=== PATIENT | male | born 1985 | race Caucasian/White ===

== ENCOUNTER 2023-04-24 14:30 | Emergency (ER) | payer MEDICAID, SELFPAY ==
[2023-04-24] VITALS (12 sets, daily range): BP systolic 110–149; BP diastolic 81–92; PULSE 85; RESP 20–21; TEMP 37.2; O2SAT 93–100; BMI 52.5
--- NOTE | 2023-04-24 14:44 | XR_ITS ---
The [address] [address] Patient Name: ELIAS WALKER MRN: [id number] date: 1985 Sex: M Assigned Patient Location: ER Current Patient Location: ER Accession/Order Number: [id number] Exam Date: 04/24/2023 15:05 Report Date: 04/24/2023 15:58 At the request of: ERIBERTO BAIN Procedure: XR chest 1V EXAM: XR chest 1V HISTORY: Cough COMPARISON: Chest study dated 05/23/2022 TECHNIQUE: AP view of the chest was obtained with portable technique at 3:00 PM. FINDINGS: Heart and mediastinal contours are unremarkable in appearance. Mild ill-defined increased density overlying the left lung field may be due to soft tissue artifact. Mild atelectatic and/or infiltrative changes not entirely excluded. Opacities in the midline may be related to post sternotomy changes, correlate with history. Postoperative clips noted on the left. No obvious pneumothorax. Bony structures appear grossly intact. XR/XR chest 1V IMPRESSION: Mild ill-defined increased density on the left which may be due to overlying soft tissue artifact. Mild atelectatic and/or infiltrative changes not entirely excluded. Follow-up as needed. Electronically authenticated by: JUSTO DERAS Date: 04/24/2023 15:58
--- NOTE | 2023-04-24 14:44 | ECG_ITS ---
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
[2023-04-24 14:50] LABS: Glucometer 389 mg/dL (74-106)
--- NOTE | 2023-04-24 15:01 | CT_ITS ---
The [address] [address] Patient Name: ELIAS WALKER MRN: [id number] date: 1985 Sex: M Assigned Patient Location: ER Current Patient Location: ER Accession/Order Number: [id number] Exam Date: 04/24/2023 15:15 Report Date: 04/24/2023 15:38 At the request of: ERIBERTO BAIN Procedure: CT head/brain wo con CT head/brain wo con, 04/24/2023 3:15 PM EST INDICATION: Dizziness COMPARISON: Noncontrast CT of the head 07/04/2011. Dictation Noncontrast CT of the head 07/05/2011; the images for this study are not available for direct comparison at the time of this dictation. TECHNIQUE: Axial CT images of the brain from skull base to vertex, including portions of the face and sinuses, were obtained without contrast. Multiplanar reformatted images were generated and reviewed as needed. FINDINGS: No intracranial mass, hydrocephalus, midline shift or acute hemorrhage. No extra-axial collection. Mcdonald-white matter differentiation is preserved. Mucosal thickening within the ethmoid air cells bilaterally. The remaining paranasal sinuses and mastoid air cells are clear. Orbits are within normal limits. No acute skull fracture. CT/CT head/brain wo con IMPRESSION: 1. No acute intracranial abnormality. 2. Mild bilateral ethmoid sinusitis. Electronically authenticated by: KOJO BERNARD Date: 04/24/2023 15:38
--- NOTE | 2023-04-24 15:02 | ED.GENADUL1 ---
HPI - General Adult General Chief complaint: Dizziness Stated complaint: DIZZINESS/BLOOD SUGAR LOW Time Seen by Provider: 04/24/23 14:39 Source: patient Mode of arrival: walk-in Limitations: no limitations Related Data Home Medications Medication Instructions Recorded Confirmed amiodarone 200 mg tablet 200 mg PO QDAY 04/10/23 04/24/23 aripiprazole 5 mg tablet 5 mg PO DAILY 04/10/23 04/24/23 aspirin 81 mg tablet,delayed 81 mg PO DAILY 04/10/23 04/24/23 release (Adult Low Dose Aspirin) atorvastatin 80 mg PO DAILY 04/10/23 04/24/23 carvedilol 25 mg tablet 25 mg PO BID 04/10/23 04/24/23 cetirizine 10 mg capsule (All Day 10 mg PO DAILY PRN aller 04/10/23 04/24/23 Allergy (cetirizine)) cinacalcet 30 mg tablet 30 mg PO DAILY 04/10/23 04/24/23 clopidogrel 75 mg tablet 75 mg PO DAILY 04/10/23 04/24/23 dapagliflozin propanediol 10 mg 10 mg PO DAILY 04/10/23 04/24/23 tablet dulaglutide 1.5 mg/0.5 mL 1.5 mg subcut QWEEK 04/10/23 04/24/23 subcutaneous pen injector fluoxetine 20 mg capsule 20 mg PO DAILY 04/10/23 04/24/23 fluticasone propionate 50 2 spray intranasal DAILY PRN 04/10/23 04/24/23 mcg/actuation nasal congestion spray,suspension (Allergy Relief (fluticasone)) metoprolol succinate 25 mg 25 mg PO DAILY 04/10/23 04/24/23 tablet,extended release 24 hr lisinopril 5 mg tablet 5 mg PO DAILY 04/24/23 04/24/23 Previous Rx's Medication Instructions Recorded cefdinir 300 mg capsule 300 mg PO BID 10 days #20 caps 04/24/23 meclizine 25 mg chewable tablet 25 mg PO QID PRN dizziness #12 tabs 04/24/23 (Antivert) ondansetron 4 mg disintegrating 4 mg PO Q6H PRN nausea and 04/24/23 tablet vomiting #12 tabs Allergies Allergy/AdvReac Type Severity Reaction Status Date / Time No Known Drug Allergies Allergy Verified 04/24/23 14:36 PFSH PFSH Medical History (Updated 04/24/23 @ 16:32 by WILL Paul) COVID-19 ?U07.1 - COVID-19 (ICD-10) Seasonal allergic rhinitis ?J30.2 - Other seasonal allergic rhinitis (ICD-10) Hyperlipidemia ?E78.5 - Hyperlipidemia, unspecified (ICD-10) Hypertension ?I10 - Essential (primary) hypertension (ICD-10) Myocardial infarction ?I21.9 - Acute myocardial infarction, unspecified (ICD-10) CVA (cerebral vascular accident) ?I63.9 - Cerebral infarction, unspecified (ICD-10) Tongue lesion ?K14.8 - Other diseases of tongue (ICD-10) Surgical History (Updated 04/10/23 @ 08:21 by Clint Vargas) Status post biopsy of kidney ?Z98.890 - Other specified postprocedural states (ICD-10) H/O partial thyroidectomy ?E89.0 - Postprocedural hypothyroidism (ICD-10) H/O parathyroidectomy ?Z98.890 - Other specified postprocedural states (ICD-10) ?Z90.89 - Acquired absence of other organs (ICD-10) History of coronary artery bypass graft ?Z95.1 - Presence of aortocoronary bypass graft (ICD-10) Family History (Updated 04/10/23 @ 08:30 by Clint Vargas) Mother Family history of diabetes mellitus Social History Smoking status: Light tobacco smoker Exam Constitutional Vital Signs, click to edit/add: Last Vital Signs Temp 98.9 F 04/24/23 14:36 Pulse 85 04/24/23 14:36 Resp 04/24/23 14:36 BP 149/82 H 04/24/23 14:36 Pulse Ox 93 L 04/24/23 14:36 O2 Del Method Room Air 04/24/23 14:36 Course Vital Signs Vital signs: Vital Signs Temperature 98.9 F 04/24/23 14:36 Pulse Rate 85 04/24/23 14:36 Respiratory Rate 04/24/23 14:36 Blood Pressure 149/82 H 04/24/23 14:36 Pulse Oximetry 93 L 04/24/23 14:36 Oxygen Delivery Method Room Air 04/24/23 14:36 Temperature 98.9 F 04/24/23 14:36 Pulse Rate 85 04/24/23 14:36 Respiratory Rate 20 04/24/23 14:36 Blood Pressure 149/82 H 04/24/23 14:36 Pulse Oximetry 93 L 04/24/23 14:36 Oxygen Delivery Method Room Air 04/24/23 14:36 Medical Decision Making MDM Narrative Medical decision making narrative: Patient noted to have hyperglycemia with no evidence of DKA, no critical blood sugars in the emergency department. He was treated with IV fluids. He has no complaints of pain or nausea. No chest pain, shortness of breath or abdominal pain. Lab studies show normal white blood cell count, normal electrolytes, stable renal insufficiency. I reviewed old records from the patient, in May of last year, he was diagnosed with non-STEMI and new onset diabetes and was transferred to [facility] where he underwent CABG. His lipase is mildly elevated and TSH is elevated as well, I suspect that the elevated lipase is due to his Trulicity which is a known side effect. He has no complaints of abdominal pain or vomiting. No abnormal bilirubin or LFTs. CT of the brain shows ethmoid sinusitis and chest x-ray shows hazy atelectasis versus a possible infiltrate although the patient has no cough. He will be treated with antibiotics for the sinusitis which will cover this potential infiltrate. He has no evidence of sepsis, he is in no distress on reevaluation by attending physician prior to discharge. He will be sent home with an antibiotic, nausea medication. Antivert given for dizziness. Return to the ER if symptoms change or worsen. Medical Records Medical records reviewed: Yes I reviewed the patient's medical records Lab Data Lab results reviewed: Yes I reviewed the patient's lab results Labs: Lab Results 04/24/23 04/24/23 04/24/23 Range/Units 14:48 14:54 14:56 WBC 7.3 (4.0-11.0) 10^3/uL RBC 5.45 (4.70-6.10) 10^6/uL Hgb 15.5 (14.0-18.0) g/dL Hct 48.5 (42.0-54.0) % MCV 89.0 (80.0-94.0) fL MCH 28.4 (25.9-34.0) pg MCHC 32.0 (29.9-35.2) g/dL RDW 13.9 (11.0-15.0) % Plt Count 241 (150-450) 10^3/uL MPV 10.1 (9.5-13.5) fL Neut % (Auto) 58.4 (43.0-75.0) % Lymph % (Auto) 28.3 (20.5-60.0) % [place] % (Auto) 10.5 (1.7-12.0) % Eos % (Auto) 1.9 (0.9-7.0) % Baso % (Auto) 0.6 (0.2-2.0) % Neut # (Auto) 4.3 (1.4-6.5) 10^3/uL Lymph # (Auto) 2.1 (1.2-3.8) 10^3/uL [place] # (Auto) 0.8 (0.3-0.8) 10^3/uL Eos # (Auto) 0.1 (0.0-0.7) 10^3/uL Baso # (Auto) 0.0 (0.0-0.1) 10^3/uL Abs Immat Gran (auto) 0.02 (0.00-0.03) 10^3/uL Imm/Tot Granulo (auto) 0.3 (0.0-0.5) % PT 10.4 (9.0-11.6) sec INR 0.98 VBG pH 7.332 (7.330-7.430) VBG pCO2 44.6 (40.0-52.0) mmHg Sodium 137 (136-145) mmol/L Potassium 5.1 (3.5-5.1) mmol/L Chloride 101 (98-107) mmol/L Carbon Dioxide 24.3 (21.0-32.0) mmol/L Anion Gap 16.8 BUN 31.0 H (7.0-18.0) mg/dL Creatinine 2.59 H (0.70-1.30) mg/dL Est GFR ( Amer) 34 L (>=60) Est GFR (Non-Af Amer) 28 L (>=60) BUN/Creatinine Ratio 12.0 Glucose 421 H (74-106) mg/dL Lactate 1.7 (0.4-2.0) mmol/L Calcium 7.1 L (8.5-10.1) mg/dL Total Bilirubin 0.7 (0.2-1.0) mg/dL AST 28 (15-37) U/L ALT 60 (16-63) U/L Alkaline Phosphatase 141 H (46-116) U/L Troponin I High Sens 11.4 (4.0-76.1) pg/mL Total Protein 9.0 H (6.4-8.2) g/dL Albumin 2.9 L (3.4-5.0) g/dL Globulin 6.1 g/dL Albumin/Globulin Ratio 0.5 Lipase 247.0 H (16.0-77.0) U/L TSH 6.966 H (0.358-3.740) uIU/mL Acetone, Qual Negative (NEGATIVE) Influenza Type A Ag Negative Influenza Type B Ag Negative SARS-CoV-2 Ag (CV2AG) Negative (NEGATIVE) POC Glucose 389 H (74-106) mg/dL Imaging Data CT scan - head: Attestation: I have reviewed the pertinent imaging results. Radiologist's impression: ITS Impressions Chest X-Ray 04/24/23 14:44 IMPRESSION: Mild ill-defined increased density on the left which may be due to overlying soft tissue artifact. Mild atelectatic and/or infiltrative changes not entirely excluded. Follow-up as needed. Electronically authenticated by: JUSTO DERAS Date: 04/24/2023 15:[address] 04/24/23 15:01 IMPRESSION: 1. No acute intracranial abnormality. 2. Mild bilateral ethmoid sinusitis. Electronically authenticated by: KOJO BERNARD Date: 04/24/2023 15:38 ECG Data Attestation: I personally reviewed and interpreted this ECG as follows: (Normal sinus rhythm at a rate of 79, no acute ST elevation, no ectopy. EKG reviewed by attending physician) Discharge Plan Discharge Chief Complaint: Dizziness Clinical Impression: Dizziness, Acute hyperglycemia, Sinusitis Patient Disposition: Home, Self-Care Time of Disposition Decision: 16:32 Condition: Good Prescriptions / Home Meds: New ondansetron 4 mg tablet,disintegrating 4 mg PO Q6H PRN (Reason: nausea and vomiting) Qty: 12 0RF cefdinir 300 mg capsule 300 mg PO BID 10 Days Qty: 20 0RF meclizine [Antivert] 25 mg tablet,chewable 25 mg PO QID PRN (Reason: dizziness) Qty: 12 0RF No Action lisinopril 5 mg tablet 5 mg PO DAILY amiodarone 200 mg tablet 200 mg PO QDAY aripiprazole 5 mg tablet 5 mg PO DAILY aspirin [Adult Low Dose Aspirin] 81 mg tablet,delayed release (DR/EC) 81 mg PO DAILY atorvastatin 80 mg PO DAILY carvedilol 25 mg tablet 25 mg PO BID Rx Instructions: must administer with a meal/food All Day Allergy (cetirizine) 10 mg capsule 10 mg PO DAILY PRN (Reason: aller) cinacalcet 30 mg tablet 30 mg PO DAILY clopidogrel 75 mg tablet 75 mg PO DAILY dapagliflozin propanediol 10 mg tablet 10 mg PO DAILY dulaglutide 1.5 mg/0.5 mL pen injector 1.5 mg subcut QWEEK fluoxetine 20 mg capsule 20 mg PO DAILY fluticasone propionate [Allergy Relief (fluticasone)] 50 mcg/actuation spray,suspension 2 spray intranasal DAILY PRN (Reason: congestion) Rx Instructions: administer into each nostril metoprolol succinate 25 mg tablet extended release 24 hr 25 mg PO DAILY Instructions: Sinusitis (ED), Dizziness (ED), Diabetic Hyperglycemia (ED) Stand Alone Forms: Portal Instructions Referrals: Physician,Non-Staff, MD [Primary Care Provider] - 1 week
[2023-04-24 15:04] LABS: Basophils Percent Auto 0.6 % (0.2-2.0); Eosinophils Absolute Auto 0.1 10^3/uL (0.0-0.7); Eosinophils Percent Auto 1.9 % (0.9-7.0); Hematocrit 48.5 % (42.0-54.0); Hemoglobin 15.5 g/dL (14.0-18.0); Immature Granulocytes Abs Auto 0.02 10^3/uL (0.00-0.03); Immature Granulocytes Pct Auto 0.3 % (0.0-0.5); Lymphocytes Absolute Auto 2.1 10^3/uL (1.2-3.8); Lymphocytes Percent Auto 28.3 % (20.5-60.0); Mean Corpuscular Hemoglobin 28.4 pg (25.9-34.0); Mean Platelet Volume 10.1 fL (9.5-13.5); Monocytes Absolute Auto 0.8 10^3/uL (0.3-0.8); Monocytes Percent Auto 10.5 % (1.7-12.0); Neutrophils Absolute Auto 4.3 10^3/uL (1.4-6.5); Neutrophils Percent Auto 58.4 % (43.0-75.0); Platelet Count 241 10^3/uL (150-450); Red Blood Count 5.45 10^6/uL (4.70-6.10); Red Cell Distribution Width 13.9 % (11.0-15.0); White Blood Count 7.3 10^3/uL (4.0-11.0)
[2023-04-24 15:09] LABS: PCO2 VBG 44.6 mmHg (40.0-52.0); pH VBG 7.332 (7.330-7.430)
[2023-04-24 15:19] LABS: Alanine Aminotransferase 60 U/L (16-63); Albumin Globulin Ratio 0.5; Albumin Level 2.9 g/dL (3.4-5.0); Alkaline Phosphatase 141 U/L (46-116); Anion Gap 16.8; Aspartate Amino Transferase 28 U/L (15-37); Bilirubin Total 0.7 mg/dL (0.2-1.0); Calcium 7.1 mg/dL (8.5-10.1); Carbon Dioxide 24.3 mmol/L (21.0-32.0); Chloride 101 mmol/L (98-107); Estimated GFR (African America 34 (>=60); Estimated GFR (Non-African Ame 28 (>=60); Globulin 6.1 g/dL; Glucose 421 mg/dL (74-106); Potassium 5.1 mmol/L (3.5-5.1); Sodium 137 mmol/L (136-145)
[2023-04-24 15:21] LABS: INR 0.98; Lactate/Lactic Acid 1.7 mmol/L (0.4-2.0); Prothrombin Time 10.4 sec (9.0-11.6)
[2023-04-24] MEDS: 0.9 % SODIUM CHLORIDE 1,000 ML 999 ML IV (15:23)
[2023-04-24 15:27] LABS: Thyroid Stimulating Hormone 6.966 uIU/mL (0.358-3.740); Troponin I High Sensitivity 11.4 pg/mL (4.0-76.1)
[2023-04-24 15:31] LABS: Influenza Virus A Antigen Negative; Influenza Virus B Antigen Negative; Internal Control Within Normal Limits; SARS-CoV-2 Ag NEGATIVE (NEGATIVE)
[2023-04-24 16:08] LABS: Acetone NEGATIVE (NEGATIVE)
[2023-04-24 16:25] LABS: Free T4 1.07 ng/dL (0.76-1.46)
[2023-04-24 16:32] LABS: Free T3 2.22 pg/mL (2.18-3.98)
== END 2023-04-24 16:58 | disposition home or self-care (01) ==
PROVIDERS: Physician Assistant; Emergency Provider Emergency Medicine
DX: R42 Dizziness and giddiness (principal); E11.65 Type 2 diabetes mellitus with hyperglycemia; J32.2 Chronic ethmoidal sinusitis; Z79.82 Long term (current) use of aspirin; Z79.899 Other long term (current) drug therapy; Z79.85 Long-term (current) use of injectable non-insulin antidiabetic drugs; Z86.16 Personal history of COVID-19; E78.5 Hyperlipidemia, unspecified; I10 Essential (primary) hypertension; I25.2 Old myocardial infarction; Z86.73 Personal history of transient ischemic attack (TIA), and cerebral infarction without residual deficits; Z95.1 Presence of aortocoronary bypass graft; F17.200 Nicotine dependence, unspecified, uncomplicated
CPT/HCPCS: 36415; 70450; 71045; 80053; 82009; 82800; 83605; 83690; 84439; 84443; 84481; 84484; 85025; 85610; 87804; 87811; 93005; 99285

== ENCOUNTER 2024-12-07 15:07 | Emergency (ER) | payer MEDICAID, SELFPAY ==
[2024-12-07 15:09] VITALS: BP 133/96; PULSE 87; TEMP 36.7; O2SAT 97; BMI 65.2
--- NOTE | 2024-12-07 15:18 | PC.NURSE ---
multiple insect bites noted on bilateral arms and back of bilateral legs
--- OUTSIDE RECORDS SUMMARY | 2024-12-07 15:21 | XMS_ITS | CCD ---
Author Organization [facility] Care Team Providers Care Labor Supervisor Name Role Phone NO FAMILY, PHYSICIAN Primary Care Provider VANESA Hoover Emergency Provider Unavailable Primary Care Provider Unavailabl e Unavailable Primary Care Provider Unavailabl e Basilio Sam Attending Unavailable Basilio Sam Admitting Unavailable NO FAMILY, PHYSICIAN Primary Care Unavailable FRANKLIN PARSONS Admitting Unavailable DR ZOE MONTERO Consulting Unavailabl e REQUEST, DR BLANTON LISTED Primary Care UnavailFRANKLIN Yun Attending Unavailable FRANKLIN PARSONS Consulting Unavailable LION ZHU Consulting Unavailable Thiago DIRECTOR SOCIAL SERVICE - RECREATION SUPERVISORJose Primary Care Prov ider Khanna DIRECTOR SOCIAL SERVICE - RECREATION SUPERVISOR, Jose Alonso Primary Care Prov ider ARIEL PURDY Attending Unavailable MAGUI DAVIS Consulting Unavailable JOSE KHANNA Primary Care Unavailable FRANKLIN PARSONS Referring Unavailable ARIEL PURDY Admitting Unavailable SHARDA SOLITARIO Consulting Unavailable ARIEL PURDY Consulting Unavailable MAGUI DAVIS Referring Unavailable JOSE KHANNA Primary Care Unavailable JOSE KHANNA Primary Care Unavailable TALIA, BALHINDER S Referring Unavailable KATE MATT Attending Unavailable ELIANA MERINO Referring Unavailable TALIA, BALHINDER S Referring Unavailable JOSE KHANNA Primary Care Unavailable TALIA, BALHINDER S Referring Unavailable JOSE KHANNA Primary Care Unavailable JOSE KHANNA Primary Care Unavailable TALIA, BALHINDER S Referring Unavailable JOSE KHANNA Primary Care Unavailable TALIA, BALHINDER S Referring Unavailable TALIA, BALHINDER S Referring Unavailable JOSE KHANNA Primary Care Unavailable Khanna DIRECTOR SOCIAL SERVICE-RECREATION SUPERVISOR, Jose Alonso Primary Care Provid er ALINA ESQUIVELMONTEZ García Referring Unavailable KHANNA, JOSE J Primary Care Unavailable KHANNA, JOSE J Primary Care Unavailable JENNYFER ROSLYN Attending Unavailable KHANNA, JOSE J Referring Unavailable KHANNA, JOSE J Primary Care Unavailable Khanna DIRECTOR SOCIAL SERVICE-RECREATION SUPERVISOR, Jose J Primary Care Provid er KHANNA, JOSE J Referring Unavailable KHANNA, JOSE J Primary Care Unavailable KHANNA, JOSE J Attending Unavailable KHANNA, JOSE J Referring Unavailable KHANNA, JOSE J Primary Care Unavailable KHANNA, JOSE J Attending Unavailable KHANNA, JOSE J Referring Unavailable KHANNA, JOSE J Primary Care Unavailable KHANNA, JOSE J Attending Unavailable KHANNA, JOSE J Referring Unavailable KHANNA, JOSE J Primary Care Unavailable KHANNA, JOSE J Attending Unavailable KHANNA, JOSE J Referring Unavailable KHANNA, JOSE J Primary Care Unavailable KHANNA, JOSE J Attending Unavailable KHANNA, JOSE J Referring Unavailable KHANNA, JOSE J Primary Care Unavailable KHANNA, JOSE J Attending Unavailable KHANNA, JOSE J Referring Unavailable KHANNA, JOSE J Primary Care Unavailable KHANNA, JOSE J Attending Unavailable KHANNA, JOSE J Referring Unavailable KHANNA, JOSE J Primary Care Unavailable KHANNA, JOSE J Attending Unavailable KHANNA, JOSE J Referring Unavailable KHANNA, JOSE J Primary Care Unavailable Unavailable Primary Care Provider Unavailabl e Unavailable Primary Care Provider Unavailabl e JACOB UGARTE Attending Unavailable JACOB UGARTE Attending Unavailable KHANNA, JOSE Gavin Referring Unavailable KHANNA, JOSE Gavin Primary Care Unavailable JACOB UGARTE Referring Unavailable KHANNA, JOSE Gavin Primary Care Unavailable JACOB UGARTE Referring Unavailable Allergies Allergy Classification Reported Allergen(s) Allergy Type Date of Onset Reaction(s) Facility (3 sources) [facility]; Translations: [melon] Allergy to substance 2 Swelling of Lip/Tongue/Thro at [facility] (20 sources) tomato allergenic extract; Translations: [tomato] Drug Allergy 2 Swelling of Lip/Tongue/Thro at [facility] (20 sources) FOOD Propensity to adverse reactions to drug 2 [facility] (20 sources) buPROPion; Translations: [BUPROPION HCL] Drug Allergy 2 [employer] Work Phone: (20 sources) Food Allergy Formula; Translations: [FOOD ALLERGY FORMULA] Propensity to adverse reactions to drug 2 [employer] Medications Current Medications Medication Drug Class(es) Dates Sig (Normalized) Sig (Original) acetaminophen 325 mg / oxyCODONE hydrochloride 5 mg oral tablet (2 sources) Opioid Agonist Start: 06-06-2022 End: 06-11-2022 Start: 02-02-2016 End: 09-12-2021 500 ml albumin human, fdc 50 mg/ml injection (2 sources) Human Serum Albumin Start: 06-02-2022 25 g, Intr aVENous, at 500 mL/hr, Administer over 60 Minutes, PRN, Other, PAD below goal and Low CI and/or Low BP and /or Low urine output per hemodynamic goals, Starting on Kathy 06/02/22 at 1824 Up to a max of 2000 mL. Notify surgeon for further orders if max volume infused. Post-op Start: 06-02-2022 25 g, IntraVEN ous, PRN, Starting on Kathy 06/02/22 at 1824, Until Discontinued, Administer over 60 Minutes, at 100 mL/hr, Other, Low CI and/or Low BP and /or Low urine output per hemodynamic goals. In the event the 5% 25 gram 500 mL bottles of albumin are unavailable - please dilute this bottle in 400 mL's of normal saline. Do not give greater than 4 bottles total after surgery. Contact CTS team if patient does not meet hemodynamic goals. Post-op ARIPiprazole 5 mg oral tablet (15 sources) Atypical Antipsychotic Start: 09-12-2022 End: 07-18-2023 take 1 tablet by mouth in the morning ARIPiprazole (ABILIFY) 5 mg tablet Indications: Mixed anxiety and depressive disorder Take 1 tablet (5 mg total) by mouth in the morning. 90 tablet 1 03/08/2023 Active aspirin 81 mg delayed release oral tablet (20 sources) Platelet Aggregation Inhibitor, Nonsteroidal Anti-inflammatory Drug Start: 06-02-2022 take 1 tablet by mouth in the morning aspirin 81 mg Take 1 tablet (81 mg total) by mouth in the morning. 06/07/2022 Active Start: 05-24-2022 End: 06-02-2022 take 1 dose by mouth once 81 mg, Oral, ONCE, 1 dose, O n Kathy 06/02/22 at 2115 atorvastatin 80 mg oral tablet (20 sources) HMG-CoA Reductase Inhibitor Start: 01-01-2024 End: 10-01-2024 take 1 tablet by mouth once daily atorvastatin (LIPITOR) 80 mg tablet Indications: Mixed hyperlipidemia Take 1 tablet (80 mg total) by mouth nightly. 90 tablet 10/01/2024 Active Start: 12-19-2022 End: 12-29-2023 take 1 tablet by mouth once daily atorvastatin (LIPITOR) 80 mg tablet Indications: Mixed hyperlipidemia Take 1 tablet (80 mg total) by mouth nightly. 90 tablet 2 11/23/2023 Active Start: 06-30-2022 take 1 tablet by caitlyn th once daily atorvastatin (LIPITOR) 20 MG tablet Take 1 tablet by mouth nightly 30 tablet 3 06/30/2022 Active Start: 06-06-2022 Start: 06-03-2022 take 20 mg by mouth once daily 20 mg, Oral, NIGHTLY, First dose on Mon06/03/22 at 2100, Until Discontinued Please hold for elevated liver function enzymes Post-op Start: 05-23-2022 End: 06-02-2022 take 80 mg by mouth once daily 80 mg, Oral, NIGHTLY, F irst dose on Mon05/23/22 at 2100, Until Discontinued blood-glucose meter (glucose monitoring kit) kit (20 sources) Start: 07-12-2022 blood-glucose meter (glucose monitoring kit) kit Indications: Uncontrolled type 2 diabetes mellitus with hyperglycemia (CMS-HCC) Use as instructed 1 each 07/12/2022 Active Start: 07-12-2022 blood-glucose meter (glucose monitoring kit) kit Indications: Uncontrolled type 2 diabetes mellitus with hyperglycemia (CMS-HCC) Use as instructed 1 each 0 07/12/2022 Active blood-glucose meter,continuo us (DEXCOM G7 RETAIL CONSULTANT) misc (20 sources) Start: 05-10-2023 blood-glucose meter,continuous (DEXCOM G7 RETAIL CONSULTANT) misc Indications: Uncontrolled type 2 diabetes mellitus with hyperglycemia (CMS-HCC) 1 Device by miscellaneous route in the evening. 05/10/2023 Active Start: 05-10-2023 blood-glucose meter,continuous (DEXCOM G7 RETAIL CONSULTANT) [facility] [place]ications: Uncontrolled type 2 diabetes mellitus with hyperglycemia (CMS-HCC) 1 Device by miscellaneous route in the evening. 0 05/10/2023 Active blood-glucose sensor (DEXCOM G7 SENSOR) device (20 sources) Start: 05-10-2023 blood-glucose sensor (DEXCOM G7 SENSOR) device Indications: Uncontrolled type 2 diabetes mellitus with hyperglycemia (CMS-HCC) 1 each by miscellaneous route every 10 days. 05/10/2023 Active Start: 05-10-2023 blood-glucose sensor (DEXCOM G7 SENSOR) device Indications: Uncontrolled type 2 diabetes mellitus with hyperglycemia ([facility]) 1 each by miscellaneous route every 10 days. 0 05/10/2023 Active calcium carbonate 500 mg chewable tablet (5 sources) Start: 04-11-2023 End: 05-11-2023 calcium carbonate (ANTACID, CALCIUM CARBONATE,) 200 mg elemental (500 mg) chewable tablet Chew 5 tablets (1,000 mg total) and swallow. 0 04/11/2023 05/11/2023 Active Start: 05-28-2022 End: 06-02-2022 take 500 mg by mouth three times daily as needed for gastroesophageal reflux disease 500 mg, Oral, 3 TIMES DAILY PRN, Starting on 05/28/22 at 1517, Until Kathy 06/02/22 at 1824, Heartburn calcium carbonate 1250 mg / cholecalciferol 200 unt oral tablet (12 sources) Vitamin D Start: 02-23-2023 take 2 tablets by mouth in the morning, then take 2 tablets by mouth once in the evening, then take 2 tablets by mouth at bedtime Calcium Carb-Cholecalciferol (Oyster Shell Calcium w/D) 500-5 MG-MCG tablet Take 2 tablets by mouth in the morning and 2 tablets in the evening and 2 tablets before bedtime. 02/23/2023 Active Start: 02-23-2023 End: 11-23-2023 take 2 tablets by mouth once calcium carbonate-vitamin D3 (OSCAL 500 + D) 500 mg(1,250mg) -200 units per tablet Take 2 tablets by mouth. 02/23/2023 11/23/2023 Discontinued (Therapy completed) Start: 09-04-2021 End: 09-05-2021 take 1 tablet by mouth once daily 1 tablet, Oral, DAILY, First dose on 09/04/21 at 1030, Until Discontinued Per og . cariprazine 1.5 mg oral capsule (20 sources) Atypical Antipsychotic Start: 05-10-2023 End: 05-29-2024 take 1 capsule by mouth in the morning VRAYLAR 1.5 mg capsule Indications: Moderate episode of recurrent major depressive disorder (CMS-HCC) TAKE 1 CAPSULE BY MOUTH IN THE MORNING 30 capsule 5 05/29/2024 Active Start: 12-16-2022 End: 03-08-2023 take 1 capsule by mouth in the morning cariprazine (VRAYLAR) 1.5 mg capsule Indications: Anxiety and depression Take 1 capsule (1.5 mg total) by mouth in the morning. 30 capsule 3 12/16/2022 03/08/2023 Discontinued (Therapy completed) carvedilol 25 mg oral tablet (20 sources) alpha-Adrenergic Ubaldo, beta-Adrenergic Ubaldo Start: 09-28-2021 End: 06-06-2022 take 1 tablet by mouth in the morning carvedilol (Coreg) 25 MG tablet Take 25 mg by mouth in the morning and 25 mg in the evening. Take with meals. 05/10/2022 Active Start: 09-09-2021 End: 09-12-2021 take 1 tablet by mouth twice daily carvedilol (COREG) 12.5 MG tablet Take 1 tablet by mouth 2 times daily 60 tablet 3 09/12/2021 Active Start: 09-08-2021 End: 09-09-2021 take 25 mg by mouth twice daily at mealtime 25 mg, Oral, 2 TIMES DAILY, First dose (after last modification) on Mon09/08/21 at 1000, Until Discontinued Administer with food to minimize the risk of orthostatic hypotension Start: 09-07-2021 End: 09-08-2021 take 12.5 mg by mouth twice daily at mealtime 12.5 mg, Oral, 2 TIMES DAILY, First dose (after last modification) on Mon09/07/21 at 2100, Until Discontinued Administer with food to minimize the risk of orthostatic hypotension Start: 08-30-2021 End: 09-07-2021 take 6.25 mg by mouth twice daily at mealtime 6.25 mg, Oral, 2 TIMES DAILY, First dose (after last modification) on Mon09/07/21 at 0715, Until Discontinued Administer with food to minimize the risk of orthostatic hypotension cefTRIAXone (ROCEPHIN) infusion (15 sources) Start: 09-13-2021 End: 09-29-2021 take 2000 mg intravenously every twenty-four hours cefTRIAXone (ROCEPHIN) infusion Infuse 2,000 mg intravenously every 24 hours for 16 days Compound per protocol 32 g 0 09/13/2021 09/29/2021 Active cephalexin 500 mg oral capsule (2 sources) Cephalosporin Antibacterial Start: 09-20-2023 End: 09-30-2023 take 1 capsule by mouth in the morning, then take 1 capsule by mouth at bedtime CEPHalexin (KEFLEX) 500 mg capsule Indications: Folliculitis Take 1 capsule (500 mg total) by mouth in the morning and 1 capsule (500 mg total) before bedtime. Do all this for 10 days. 20 capsule 09/20/2023 09/30/2023 Active Start: 02-02-2016 End: 09-12-2021 cetirizine hydrochloride 10 mg oral tablet (20 sources) Histamine-1 Receptor Antagonist Start: 07-12-2022 End: 06-17-2024 take 1 tablet by mouth in the morning cetirizine (ZyrTEC) 10 mg tablet Indications: Seasonal allergic rhinitis due to pollen TAKE 1 TABLET BY MOUTH IN THE MORNING 30 tablet 6 06/17/2024 Active cetirizine (ZyrT EC) 10 MG chewable tablet Chew Daily Active cholecalciferol 0.125 mg oral capsule (8 sources) Vitamin D Start: 06-15-2022 take 1 capsule by mouth in the morning RA Vitamin D-3 125 MCG (5000 UT) capsule Take 1 capsule by mouth in the morning. 06/15/2022 Active Cholecalciferol (VITAMIN D3) 125 MCG (5000 UT) TABS Take 1 tablet by mouth 0 Active clopidogrel 75 mg oral tablet (20 sources) P2Y12 Platelet Inhibitor Start: 06-03-2022 take 1 tablet by mouth in the morning clopidogreL (PLAVIX) 75 mg tablet Take 1 tablet (75 mg total) by mouth in the morning. 06/07/2022 Active dapagliflozin 10 mg oral tablet (20 sources) Sodium-Glucose Cotransporter 2 Inhibitor Start: 12-16-2022 End: 06-10-2024 dapagliflozin propanediol (FARXIGA) 10 mg tablet Indications: Type 2 diabetes mellitus with stage 3 chronic kidney disease and hypertension ([facility]) take 1 tablet by mouth every morning 90 tablet 1 06/10/2024 Active 0.5 ml dulaglutide 3 mg/ml auto-injector (14 sources) GLP-1 Receptor Agonist Start: 07-10-2024 dulaglutide (TRULICITY) 1.5 mg/0.5 mL pen injector Indications: Type 2 diabetes mellitus with microalbuminuria, without long-term current use of insulin ([facility]) Inject 1.5 mg under the skin every 7 days. 2 mL 4 07/10/2024 Active Start: 06-10-2024 End: 07-10-2024 dulaglutide (TRULICITY) 0.75 mg/0.5 mL pen injector Indications: Uncontrolled type 2 diabetes mellitus with hyperglycemia ([facility]) Inject 0.5 mL (0.75 mg total) under the skin every 7 days. 2 mL 06/10/2024 07/10/2024 Discontinued (Therapy completed) Start: 03-08-2023 End: 04-19-2023 dulaglutide (TRULICITY) 1.5 mg/0.5 mL pen injector Indications: Type 2 diabetes mellitus with microalbuminuria, without long-term current use of insulin ([facility]) Inject 1.5 mg under the skin every 7 days. 2 mL 3 03/08/2023 04/19/2023 Discontinued (Therapy completed) Start: 12-16-2022 End: 03-08-2023 dulaglutide (TRULICITY) 0.75 mg/0.5 mL pen injector Indications: Type 2 diabetes mellitus with microalbuminuria, without long-term current use of insulin ([facility]) , Dilated cardiomyopathy ([facility]) Inject 0.5 mL (0.75 mg total) under the skin every 7 days. 2 mL 3 12/16/2022 03/08/2023 Discontinued inject 1.5 mg by sub cutaneous injection every week dulaglutide (Trulicity) 1.5 MG/0.5ML solution pen-injector Inject 1.5 mg under the skin 1 (one) time per week Active FLUoxetine 20 mg oral capsule (20 sources) Serotonin Reuptake Inhibitor Start: 12-16-2022 End: 06-10-2024 take 1 capsule by mouth in the morning FLUoxetine (PROzac) 20 mg capsule Indications: Anxiety and depression Take 1 capsule (20 mg total) by mouth in the morning. 90 capsule 1 06/10/2024 Active Start: 05-23-2022 End: 06-02-2022 take 10 mg by mouth once daily 10 mg, Oral, DAILY, Fir st dose on Mon05/23/22 at 1230, Until Discontinued take 2 tablets by mo [facility] once daily FLUoxetine (PROZAC) 10 MG tablet Take 2 tablets by mouth daily 0 Active take 1 tablet by [facility] once daily FLUoxetine (PROZAC) 10 MG tablet Take 1 tablet by mouth daily 0 Active 1000 ml glucose 100 mg/ml injection (3 sources) Start: 06-02-2022 take 1 mL intravenously every hour IntraVENous, at 100 mL/hr, CONTINUOUS PRN, if blood glucose remains LESS THAN 70 mg/dL after 2 dextrose 10% intravenous boluses or administration of glucagon, Starting on Mon06/02/22 at 1824 If blood glucose fails to stabilize after 2 dextrose 10% intravenous boluses or glucagon administration, start dextrose 10% infusion at 100 mL/hour and repeat blood glucose at 30 and 60 minutes. If blood glucose is GREATER THAN 70 mg/dL after 60 minutes, discontinue dextrose 10% infusion. Post-op Start: 06-02-2022 16 g (4 tablet ), Oral, PRN, Starting on Mon06/02/22 at 1824, Until Discontinued, Low blood sugar If blood glucose is LESS THAN 70 mg/dL and patient is alert and tolerating oral. Give 4 tablets (16g) Repeat blood glucose in 15 minutes. If blood glucose is LESS THAN 70 mg/dL, repeat treatment and recheck blood glucose in 15 minutes x 2. If blood glucose remains LESS THAN 70 mg/dL, notify provider. Post-op Start: 09-07-2021 End: 09-08-2021 IntraVENous, at 50 mL/hr, CO NTINUOUS, Starting on Mon09/07/21 at 1245 3 ml insulin detemir 100 unt/ml pen injector (20 sources) Insulin Analog Start: 01-16-2024 insulin detemi r U-100 (LEVEMIR FLEXPEN) 100 unit/mL (3 mL) insulin pen Indications: Type 2 diabetes mellitus with microalbuminuria, without long-term current use of insulin ([facility]) Inject 35 Units under the skin nightly. 15 mL 1 01/16/2024 Active Start: 07-18-2023 End: 01-16-2024 insulin detemir U-100 (LEVEM IR FLEXPEN) 100 unit/mL (3 mL) insulin pen Indications: Type 2 diabetes mellitus with microalbuminuria, without long-term current use of insulin ([facility]) Inject 20 Units under the skin nightly. 15 mL 1 11/23/2023 Active Start: 05-05-2023 End: 07-18-2023 inject 10 [IU] by subcutaneous injection once daily insulin detemir U-100 (LEVEMIR FLEXPEN) 100 unit/mL (3 mL) insulin pen Inject 10 Units under the skin nightly. 15 mL 1 05/05/2023 07/18/2023 Discontinued (Reorder) 3 ml insulin glargine 100 unt/ml pen injector (20 sources) Insulin Analog Start: 06-10-2024 insulin glargi ne (LANTUS SOLOSTAR U-100 INSULIN) 100 unit/mL (3 mL) insulin pen Indications: Uncontrolled type 2 diabetes mellitus with hyperglycemia ([facility]) Inject 80 Units under the skin nightly. 15 mL 6 06/10/2024 Active Start: 04-03-2024 End: 06-10-2024 insulin glargine (LANTUS BRAYDEN OSTAR U-100 INSULIN) 100 unit/mL (3 mL) insulin pen Indications: Type 2 diabetes mellitus with microalbuminuria, without long-term current use of insulin ([facility]) Inject 70 Units under the skin nightly. 15 mL 6 04/03/2024 06/10/2024 Discontinued (Reorder) Start: 02-21-2024 End: 04-03-2024 insulin glargine (LANTUS BRAYDEN OSTAR U-100 INSULIN) 100 unit/mL (3 mL) insulin pen Indications: Type 2 diabetes mellitus with microalbuminuria, without long-term current use of insulin ([facility]) Inject 35 Units under the skin nightly. 15 mL 12 02/21/2024 04/03/2024 Discontinued (Reorder) Start: 06-03-2022 19 Units (roun ded from 19.035 Units = 0.15 Units/kg 126.9 kg), SubCUTAneous, NIGHTLY, First dose on Mon06/03/22 at 2100, Until Discontinued Hold if BG is less than 160. If patient is NOT diabetic discontinue order. If patient takes Lantus at home - notify CTS team. Post-op Start: 06-01-2022 End: 06-01-2022 inject 1 dose by subcutaneous injection once 10 Units, SubCUTAneous, ONCE, 1 dose, On Mon06/01/22 at 1315 Start: 05-30-2022 End: 06-02-2022 inject 50 [IU] by subcutaneous injection twice daily 50 Units, SubCUTAneous, 2 times daily, First dose (after last modification) on Mon05/30/22 at 2100, Until Discontinued Start: 05-29-2022 End: 05-30-2022 inject 45 [IU] by subcutaneous injection twice daily 45 Units, SubCUTAneous, 2 times daily, First dose (after last modification) on Mon05/29/22 at 2100, Until Discontinued Start: 05-28-2022 End: 05-29-2022 inject 40 [IU] by subcutaneous injection twice daily 40 Units, SubCUTAneous, 2 times daily, First dose (after last modification) on Mon05/28/22 at 2100, Until Discontinued Start: 05-24-2022 End: 05-28-2022 inject 30 [IU] by subcutaneous injection twice daily 30 Units, SubCUTAneous, 2 times daily, First dose on Mon05/24/22 at 1130, Until Discontinued Start: 05-23-2022 End: 05-24-2022 25 Units (rounded from 25.4 Units = 0.2 Units/kg 127 kg), SubCUTAneous, NIGHTLY, First dose (after last modification) on Mon05/23/22 at 1645, Until Discontinued isopropyl alcohol 0.7 ml/ml medicated pad (20 sources) Start: 07-12-2022 alcohol swabs (ALCOHOL PREP PADS) pads, medicated Indications: Uncontrolled type 2 diabetes mellitus with hyperglycemia ([facility]) Apply 1 Pad topically in the morning and at bedtime. 100 each 6 07/12/2022 Active ketotifen 0.25 mg/ml ophthalmic solution (20 sources) Histamine-1 Receptor Inhibitor Start: 11-24-2021 take 1 drop(s) into the eye(s) twice daily EYE ITCH RELIEF 0.025 % (0.035 %) ophthalmic solution INSTILL 1 DROP INTO BOTH EYES TWICE A DAY DIRECTED 11/24/2021 Active lisinopril 5 mg oral tablet (20 sources) Angiotensin Converting Enzyme Inhibitor Start: 01-10-2023 End: 05-30-2024 take 1 tablet by mouth in the morning lisinopriL (PRINIVIL,ZESTRIL) 5 mg tablet TAKE 1 TABLET BY MOUTH IN THE MORNING 90 tablet 1 05/30/2024 Active Start: 12-06-2022 End: 03-08-2023 take 1 tablet by mouth in the morning lisinopril 2.5 MG tablet Take 2.5 mg by mouth in the morning. 12/06/2022 Active take 1 tablet by caitlyn th once daily lisinopril (PRINIVIL;ZESTRIL) 5 MG tablet Take 1 tablet by mouth daily 0 Active loperamide hydrochloride 2 mg oral capsule (4 sources) Opioid Agonist Start: 08-12-2024 take 1 capsule by mouth four times daily as needed for diarrhea loperamide (IMODIUM) 2 mg capsule Indications: Loose stools Take 1 capsule (2 mg total) by mouth 4 (four) times a day as needed for diarrhea. 30 capsule 08/12/2024 Active Start: 08-09-2024 End: 08-12-2024 take 1 tablet by mouth four times daily as needed for diarrhea loperamide (IMODIUM A-D) 2 mg tablet Indications: Loose stools Take 1 tablet (2 mg total) by mouth 4 (four) times a day as needed for diarrhea. 30 tablet 08/09/2024 08/12/2024 Discontinued (Therapy completed) 24 hr loratadine 10 mg / pseudoephedrine sulfate 240 mg extended release oral tablet (18 sources) alpha-Adrenergic Agonist Start: 08-28-2021 take 1 tablet by mouth once daily at bedtime, then take 1 tablet by mouth every twenty-four hours Loratadine-Pseudoephedrine (Loratadine-D) 10-240 mg Tablet Extended Release 24 Hr Active 1 TAB PO Daily at bedtime August 28, 2021 7:13pm take 10-240 mg by mouth once mary atadine-pseudoephedrine (CLARITIN-D 24 HOUR) 10-240 MG per extended release tablet Take 1 tablet by mouth daily 0 Active 50 ml magnesium sulfate 40 mg/ml injection (1 source) Start: 06-02-2022 2,000 mg, IntraVENous, at 25 mL/hr, Administer over 2 Hours, PRN, Other, hypomagnesemia, Starting on Kathy 06/02/22 at 1824 Via central line - do not use if urine output below 30 mL/hr or if patient is on peritoneal or hemodialysis. Magnesium Level: Dose: Less than or equal to 1 mg/dL Give 2 grams times 2 doses (4 grams Total) at 1 gm/hr. Notify provider when starting replacement. Monitor BP and EKG. 1.1 - 1.5 mg/dL Give 2 grams times 2 doses (4 grams Total) at 1 gm/hr. 1.6 - 1.9 mg/dL Give 2 grams times 1 dose at 1 gm/hr. Greater than 1.9 mg/dL No replacement. Repeat Magnesium level 60 minutes post infusion. Post-op metoprolol tartrate 25 mg oral tablet (20 sources) beta-Adrene rgic Ubaldo Start: 06-05-2022 take 1 tablet by mouth in the morning, then take 1 tablet by mouth at bedtime metoprolol tartrate (LOPRESSOR) 25 mg tablet Take 1 tablet (25 mg total) by mouth in the morning and 1 tablet (25 mg total) before bedtime. 06/06/2022 Active Start: 06-02-2022 End: 06-05-2022 12.5 mg, Oral, 2 TIMES DAILY , First dose on Kathy 06/02/22 at 2100, Until Discontinued Hold for pulse less than 60, SBP less than 100, if patient on vasopressors, or if patient has a temporary pacemaker Post-op Start: 09-06-2021 End: 09-06-2021 5 mg, IntraVENous, ONCE, 1 d ose, On Mon09/06/21 at 1645 Start: 08-28-2021 take 50 mg by mouth once daily Metoprolol Succinate Active 50 MG PO Daily August 28, 2021 7:13pm take 1 tablet by caitlyn th every twenty-four hours in the morning metoprolol succinate XL (Toprol-XL) 25 MG 24 hr tablet Take 25 mg by mouth in the morning. Do not crush or chew.. Active mupirocin 0.02 mg/mg topical ointment (3 sources) RNA Synthetase Inhibitor Antibacterial Start: 06-02-2022 End: 06-07-2022 take 1 dose nasal route twice daily Each Nostril, 2 TIMES DAILY, First dose on Mon06/02/22 at 2100, For 10 doses, Post-op Start: 05-30-2022 End: 06-02-2022 take 1 dose nasal route twice daily Each Nostril, 2 TIMES DAILY, First dose on Mon05/31/22 at 2345, For 10 doses pantoprazole 40 mg delayed release oral tablet (3 sources) Proton Pump Inhibitor Start: 05-26-2022 End: 06-21-2022 polyethylene glycol 3350 [id number] mg powder for oral solution (4 sources) Osmotic Laxative Start: 06-02-2022 End: 07-06-2022 take 17 g by mouth once daily as needed for constipation polyethylene glycol (GLYCOLAX) 17 g packet Take 17 g by mouth daily as needed for Constipation 527 g 0 06/06/2022 07/06/2022 Active Start: 08-29-2021 17 g, Oral, DA RYAN PRN, Starting on Mon08/29/21 at 0640, Until Discontinued, Constipation First line therapy for constipation 50 ml potassium chloride 0.4 meq/ml injection (2 sources) Start: 06-02-2022 20 mEq, IntraV ENous, PRN, Starting on Mon06/02/22 at 1824, Until Discontinued, Administer over 60 Minutes, at 50 mL/hr, Other, hypokalemia Via central line - do not use if urine output is below 30 mL/hr or if patient is on peritoneal or hemodialysis. Potassium level: Dose: Less than 2.7 mmol/L Give 20 mEq times 2 doses (40 mEq Total) at 20 mEq/hr and notify provider when starting replacement. 2.7 - 3.9 mmol/L Give 20 mEq times 2 doses (40 mEq Total) at 20 mEq/hr. 4 - 4.4 mmol/L Give 20mEq times 1 dose at 20 mEq/hr. 4.5 - 5.8 mmol/L No replacement. Greater than 5.8 mmol/L Notify provider. Repeat potassium level 30 minutes post-infusion and follow protocol as indicated. Post-op Start: 09-08-2021 End: 09-08-2021 40 mEq, Oral, ONCE, 1 dose, On 09/08/21 at 0830 Do not crush, chew, or suck on tablet. Tablet may also be broken in half and each half swallowed separately. 100 ml propofol 10 mg/ml injection (4 sources) General Anesthetic Start: 06-02-2022 10 mcg/kg/m in 126.9 kg (7.614 mL/hr, rounded to 7.6 mL/hr), IntraVENous, CONTINUOUS, Starting on Kathy 06/02/22 at 1845, Until Discontinued Titrate Infusion? Yes Initial Infusion Dose: 10 mcg/kg/min Goal of Therapy: RASS of -1 to 1 Contact Provider if: Patient is receiving maximum dose and is not achieving the goal of therapy For sedation, titrate to RASS -1 to -2 Dose Range: 5 to 50 mcg/kg/min Max dose: 50 mcg/kg/min Contact physician if max dose does not achieve desired response If RASS 1 point below goal - decrease dose by 5mcg/kg/min no faster than every 5 min If RASS 2 points below goal- decrease dose by 10mcg/kg/min no faster than every 5 min If RASS at goal, continue current dose If RASS 2 or more points above goal - increase dose by 10mcg/kg/min no faster than every 5 min If RASS 1 point above goal - increase dosee by 5mcg/kg/min no faster than every 5 min If after titration rate change patient exhibits adverse hemodynamic response, next titration rate change may be adjusted by one-half of the previous rate change If patient fails sedation interruption, resume propofol titration at 50% of previous rate Do not administer through the same I.V. catheter with blood or plasma. Tubing and any unused portions of propofol vials should be discarded after 12 hours. Post-op Start: 09-03-2021 End: 09-03-2021 10 mg, IntraVENous, ONCE, 1 dose, On Mon09/03/21 at 0700 Titrate Infusion? No Infusion Dose: 20 mcg/kg/min If Titrate Infusion? is No : Disregard instructions below. If Titrate infusion? is Yes : Titrate in increments of 5 mcg/kg/min no more frequently than every 5 minutes to goal of therapy. If after titration rate change patient exhibits adverse hemodynamic response, next titration rate change may be adjusted by one-half of the previous rate change. If patient fails sedation interruption, resume propofol infusion at 50% of previous rate. Do not administer through the same I.V. catheter with blood or plasma. Tubing and any unused portions of propofol vials should be discarded after 12 hours. Start: 08-29-2021 End: 09-03-2021 5-50 mcg/kg/min 111.9 kg (3. 357-33.57 mL/hr, rounded to 3.4- 33.6 mL/hr), IntraVENous, CONTINUOUS, Starting on Mon08/29/21 at 0500, Until Mon09/03/21 at 1909 Titrate Infusion? Yes Initial Infusion Dose: 20 mcg/kg/min Goal of Therapy: RASS of -2 to -3 Contact Provider if: New onset HR less than 50 bpm, New onset SBP less than 90 mmHg, Patient is receiving maximum dose and is not achieving the goal of therapy, Triglycerides greater than 500 mg/dL If Titrate Infusion? is No : Disregard instructions below. If Titrate infusion? is Yes : Titrate in increments of 5 mcg/kg/min no more frequently than every 5 minutes to goal of therapy. If after titration rate change patient exhibits adverse hemodynamic response, next titration rate change may be adjusted by one-half of the previous rate change. If patient fails sedation interruption, resume propofol infusion at 50% of previous rate. Do not administer through the same I.V. catheter with blood or plasma. Tubing and any unused portions of propofol vials should be discarded after 12 hours. 0.25 mg, 0.5 mg dose 1.5 ml semaglutide 1.34 mg/ml pen injector (1 source) Start: 07-18-2023 semaglutide (OZEMPIC) 0.25 mg or 0.5 mg(2 mg/1.5 mL) pen injector Indications: Type 2 diabetes mellitus with microalbuminuria, without long-term current use of insulin ([facility]) Inject 0.5 mg under the skin every 7 days. 1.5 mL 2 07/18/2023 Active tamsulosin hydrochloride 0.4 mg oral capsule (6 sources) alpha-Adrener gic Ubaldo Start: 06-07-2022 End: 03-08-2023 take 1 capsule by mouth once daily tamsulosin (FLOMAX) 0.4 MG capsule Take 1 capsule by mouth daily 30 capsule 0 06/30/2022 Active Start: 06-04-2022 take 0.4 mg by mouth once daily 0.4 mg, Oral, DAILY, First dose on 06/04/22 at 1145, Until Discontinued Do not crush or break. (12 sources) Start: 06-02-2022 [Order 1 Start ] Name: dextrose bolus 10% 125 mL Signed Summary: 125 mL, IntraVENous, at 937.5 mL/hr, Administer over 8 Minutes, PRN, Other, Blood glucose 40 - 69 mg/dL and patient NOT ALERT or NPO, Starting on Kathy 06/02/22 at 1824 Start D5W at 100 mL/hour until ordering provider can be reached. Repeat blood glucose in 15 minutes. If blood glucose is 40 - 69 mg/dL, repeat treatment and recheck blood glucose in 15 minutes x 2. If using Glucostabilizer, dose as instructed per system. Post-op [Order 1 End] [Order 2 Start] Name: dextrose bolus 10% 250 mL Signed Summary: 250 mL, IntraVENous, at 937.5 mL/hr, Administer over 16 Minutes, PRN, Other, Blood glucose LESS than 40 mg/dL and patient NOT ALERT or NPO, Starting on Kathy 06/02/22 at 1824 Start D5W at 100 mL/hour until ordering provider can be reached. Repeat blood glucose in 15 minutes. If blood glucose is LESS than 40 mg/dL, repeat treatment and recheck blood glucose in 15 minutes x 2. If using Glucostabilizer, dose as instructed per system. Post-op [Order 2 End] Start: 06-02-2022 [Order 1 Start ] Name: fentaNYL (SUBLIMAZE) injection 25 mcg Signed Summary: 25 mcg, IntraVENous, EVERY 1 HOUR PRN, Starting on Kathy 06/02/22 at 1824, Until Discontinued, Pain Moderate (4-6) If oral and IV narcotics ordered, use oral first and only use IV if oral is ineffective or cannot take oral. Do Not give oral and IV within 1 hour of each other unless specifically ordered. Post-op [Order 1 End] [Order 2 Start] Name: fentaNYL (SUBLIMAZE) injection 50 mcg Signed Summary: 50 mcg, IntraVENous, EVERY 1 HOUR PRN, Starting on Kathy 06/02/22 at 1824, Until Discontinued, Pain Severe (7-10) If oral and IV narcotics ordered, use oral first and only use IV if oral is ineffective or cannot take oral. Do Not give oral and IV within 1 hour of each other unless specifically ordered. Post-op [Order 2 End] Start: 06-02-2022 take 1 tablet by [facility] every four hours as needed [Order 1 Start] Name: oxyCODONE-acetaminophen (PERCOCET) 5-325 MG per tablet 1 tablet Signed Summary: 1 tablet, Oral, EVERY 4 HOURS PRN, Starting on Kathy 06/02/22 at 1824, Until Discontinued, Pain Moderate (4-6) Maximum dose of acetaminophen is 4000 mg from all sources in 24 hours. Post-op [Order 1 End] [Order 2 Start] Name: oxyCODONE-acetaminophen (PERCOCET) 5-325 MG per tablet 2 tablet Signed Summary: 2 tablet, Oral, EVERY 4 HOURS PRN, Starting on Kathy 06/02/22 at 1824, Until Discontinued, Pain Severe (7-10) Maximum dose of acetaminophen is 4000 mg from all sources in 24 hours. Post-op [Order 2 End] Start: 06-02-2022 [Order 1 Start ] Name: ondansetron (ZOFRAN-ODT) disintegrating tablet 4 mg Signed Summary: 4 mg, Oral, EVERY 8 HOURS PRN, Starting on Kathy 06/02/22 at 1824, Until Discontinued, Nausea, Vomiting, Post-op [Order 1 End] [Order 2 Start] Name: ondansetron (ZOFRAN) injection 4 mg Signed Summary: 4 mg, IntraVENous, EVERY 6 HOURS PRN, Starting on Kathy 06/02/22 at 1824, Until Discontinued, Nausea, Vomiting Administer if oral route cannot be used. Post-op [Order 2 End] Start: 09-09-2021 End: 09-09-2021 4 mg, IntraVENous, at 400 mL /hr, Administer over 15 Minutes, ONCE, On Kathy 09/09/21 at 1630, For 1 dose Start: 09-06-2021 take 100 mg intraven ously every twenty-four hours 2,000 mg, IntraVENous, EVERY 24 HOURS, First dose on Mon09/06/21 at 1315, Until Discontinued Antimicrobial Indications: Bloodstream Infection Administer as slow IV Push over 5 mins Reconstitute 2 g vials with 19.2 mL of designated diluent to produce a 100mg/mL solution Start: 09-02-2021 End: 09-06-2021 take 1 dose intravenously every twelve hours 400 mg (3.39 mg/kg), IntraVENous, at 50 mL/hr, Administer over 1 Hours, EVERY 12 HOURS, First dose on Kathy 09/02/21 at 1400 Administer by slow IV infusion over 60 minutes. Start: 08-30-2021 End: 09-01-2021 take 20 mL intravenously every hour 2,000 mg, IntraVENous, at 40 mL/hr, Administer over 30 Minutes, EVERY 12 HOURS, First dose on Mon08/30/21 at 0945, For 7 days Administer as slow IV Push over 5 mins Reconstitute 2 g vial with 10 mL of designated diluent. Then, to produce a 100 mg/mL solution, further dilute in syringe to 20 mL. Start: 08-29-2021 End: 08-31-2021 2.5-15 mg/hr (25-150 mL/hr), IntraVENous, CONTINUOUS, Starting on Mon08/29/21 at 1515, Until Mon08/31/21 at 1158 Titrate Infusion? Yes Initial Infusion Rate: 5 mg/hr Goal of Therapy is: SBP 140-160 mmHg Contact Provider if: Patient is receiving the maximum dose and is not achieving the goal of therapy Do not administer through small veins (e.g. those on the dorsum of the hand or wrist); change the infusion site every 12 hours if a peripheral vein is used. If Titrate Infusion? is No : Disregard instructions below. If Titrate infusion? is Yes : Titrate in increments of 2.5 mg/hr no more frequently than every 15 minutes to goal of therapy. Start: 08-29-2021 End: 08-31-2021 take 20 mg intravenously twice daily 20 mg, IntraVENous, 2 TIMES DAILY, First dose on Mon08/29/21 at 0900, Until Discontinued IV Push over minimum of 2 minutes - Dilute with 10 mL NS Start: 08-29-2021 [Order 1 Start ] Name: acetaminophen (TYLENOL) tablet 650 mg Signed Summary: 650 mg, Oral, EVERY 6 HOURS PRN, Starting on Mon08/29/21 at 0640, Until Discontinued, Pain Mild (1-3), Fever, For temp greater than 100.4 F (38 C) Maximum dose of acetaminophen is 4000 mg from all sources in 24 hours. [Order 1 End] [Order 2 Start] Name: acetaminophen (TYLENOL) suppository 650 mg Signed Summary: 650 mg, Rectal, EVERY 6 HOURS PRN, Starting on Mon08/29/21 at 0640, Until Discontinued, Pain Mild (1-3), Fever, For temp greater than 100.4 F (38 C) Administer if oral route cannot be used. [Order 2 End] Start: 08-29-2021 [Order 1 Start ] Name: ondansetron (ZOFRAN-ODT) disintegrating tablet 4 mg Signed Summary: 4 mg, Oral, EVERY 8 HOURS PRN, Starting on Mon08/29/21 at 0640, Until Discontinued, Nausea, Vomiting [Order 1 End] [Order 2 Start] Name: ondansetron (ZOFRAN) injection 4 mg Signed Summary: 4 mg, IntraVENous, EVERY 6 HOURS PRN, Starting on Mon08/29/21 at 0640, Until Discontinued, Nausea, Vomiting Administer if oral route cannot be used. [Order 2 End] Completed/Discontinued Medications Medication Drug Class(es) Dates Sig (Normalized) Sig (Original) acetylcysteine 200 mg/ml inhalation solution (3 sources) Antidote, Mucolytic, Antidote for Acetaminophen Overdose Start: 05-26-2022 End: 05-26-2022 take 1 dose by mouth once 600 mg, Oral, ONCE, 1 dose, On Kathy 05/26/22 at 2300 Start: 05-26-2022 End: 05-26-2022 600 mg, Oral, 2 TIMES DAILY, 4 doses, First dose on Kathy 05/26/22 at 0100, Last dose on Mon05/27/22 at 0900 albuterol 0.833 mg/ml / ipratropium bromide 0.167 mg/ml inhalation solution (1 source) Anticholinergic, beta2-Adrenergic Agonist Start: 06-02-2022 1 ampule, Inhalation, EVERY 4 HOURS PRN, Starting on Mon06/02/22 at 1824, Until Discontinued, Shortness of Breath Initiate RT Bronchodilator Protocol: Yes Post-op amiodarone hydrochloride 200 mg oral tablet (20 sources) Antiarrhythmic Start: 08-22-2022 End: 07-18-2023 take 1 tablet by mouth in the morning amiodarone (PACERONE) 200 mg tablet Take 1 tablet (200 mg total) by mouth in the morning. 08/22/2022 07/18/2023 Discontinued (Therapy completed) Start: 06-04-2022 End: 07-30-2022 take 1 tablet by mouth twice daily amiodarone (CORDARONE) 200 MG tablet Take 1 tablet by mouth 2 times daily 60 tablet 0 06/30/2022 Active Start: 05-30-2022 End: 06-04-2022 take 200 mg by mouth three times daily 200 mg, Oral, 3 TIMES DAILY, First dose on Kathy 06/02/22 at 2100, Until Discontinued Hold for QTC greater than 500 and HR less than 60. Post-op amLODIPine 10 mg oral tablet (1 source) Dihydropyridine Calcium Channel Ubaldo Start: 09-08-2021 End: 09-08-2021 take 10 mg by mouth once daily 10 mg, Oral, DAILY, First dose on Mon09/08/21 at 0615, Until Discontinued bisacodyl 10 mg rectal suppository (2 sources) Stimulant Laxative Start: 06-02-2022 take 10 mg rectal route once daily as needed 10 mg, Rectal, DAILY PRN, Starting on Kathy 06/02/22 at 1824, Until Discontinued, Constipation Second line therapy for constipation, After 24 hours, if no result from first line PRN therapy, give second line therapy in combination with first line therapy. Post-op Start: 09-05-2021 take 10 mg rectal ro delfino once daily as needed 10 mg, Rectal, DAILY PRN, Starting on 09/05/21 at 1838, Until Discontinued, Constipation calcium chloride 0.0014 meq/ml / potassium chloride 0.004 meq/ml / sodium chloride 0.103 meq/ml / sodium lactate 0.028 meq/ml injectable solution (1 source) Start: 05-23-2022 End: 05-25-2022 IntraVENous, at 100 mL/hr, CONTINUOUS, Starting on 05/23/22 at 1230 cefdinir 300 mg oral capsule (1 source) Cephalosporin Antibacterial Start: 04-24-2023 End: 05-05-2023 take 1 capsule by mouth twice daily cefDINIR (OMNICEF) 300 mg capsule take 1 capsule by mouth twice a day for 10 days 0 04/24/2023 05/05/2023 Discontinued (Therapy completed) cefTRIAXone (ROCEPHIN) 2,000 mg in dextrose 5 % 50 mL IVPB mini-bag (1 source) Start: 09-28-2021 End: 09-28-2021 cefTRIAXone (ROCEPHIN) 2,000 mg in dextrose 5 % 50 mL IVPB mini-bag cefTRIAXone (ROCEPHIN) 2,000 mg in sterile water 20 mL IV syringe (1 source) Start: 09-13-2021 End: 09-13-2021 cefTRIAXone (ROCEPHIN) 2,000 mg in sterile water 20 mL IV syringe cefTRIAXone (ROCEPHIN) 2000 mg IVPB in D5W 50ml minibag (11 sources) Start: 09-25-2021 End: 09-25-2021 cefTRIAXone (ROCEPHIN) 2000 mg IVPB in D5W 50ml minibag Start: 09-24-2021 End: 09-24-2021 cefTRIAXone (ROCEPHIN) 2000 mg IVPB in D5W 50ml minibag Start: 09-23-2021 End: 09-23-2021 cefTRIAXone (ROCEPHIN) 2000 mg IVPB in D5W 50ml minibag Start: 09-22-2021 End: 09-22-2021 cefTRIAXone (ROCEPHIN) 2000 mg IVPB in D5W 50ml minibag Start: 09-21-2021 End: 09-21-2021 cefTRIAXone (ROCEPHIN) 2000 mg IVPB in D5W 50ml minibag Start: 09-20-2021 End: 09-20-2021 cefTRIAXone (ROCEPHIN) 2000 mg IVPB in D5W 50ml minibag Start: 09-19-2021 End: 09-19-2021 cefTRIAXone (ROCEPHIN) 2000 mg IVPB in D5W 50ml minibag Start: 09-18-2021 End: 09-18-2021 cefTRIAXone (ROCEPHIN) 2000 mg IVPB in D5W 50ml minibag Start: 09-17-2021 End: 09-17-2021 cefTRIAXone (ROCEPHIN) 2000 mg IVPB in D5W 50ml minibag Start: 09-15-2021 End: 09-15-2021 cefTRIAXone (ROCEPHIN) 2000 mg IVPB in D5W 50ml minibag Start: 09-14-2021 End: 09-14-2021 cefTRIAXone (ROCEPHIN) 2000 mg IVPB in D5W 50ml minibag chlorhexidine gluconate 1.2 mg/ml mouthwash (2 sources) Start: 05-30-2022 End: 05-31-2022 take 1 dose by mouth once 15 mL, Mouth/Throat, ONCE, 1 dose, On Mon05/30/22 at 204 Morning of surgery Pre-op (day of surgery) Start: 05-30-2022 End: 06-02-2022 Topical, SEE ADMIN INSTRUCTI ONS, Starting on Mon05/30/22 at 2019, For 2 doses Night prior to surgery and 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 12/06/2022 07/18/2023 Discontinued (Therapy completed) 100 ml dexmedetomidine 0.004 mg/ml injection (1 source) Central alpha-2 Adrenergic Agonist Start: 09-03-2021 End: 09-07-2021 take 2.9-43.4 mL intravenously every hour 0.1-1.5 mcg/kg/hr 115.6 kg (2.89-43.35 mL/hr, rounded to 2.9-43.4 mL/hr), IntraVENous, CONTINUOUS, Starting on Mon09/03/21 at 1345, Until Mon09/07/21 at 1248 Titrate Infusion? Yes Initial Infusion Dose: 0.2 mcg/kg/hr Goal of Therapy: RASS of -1 to 0 Contact Provider if: New onset HR less than 50 bpm, New onset SBP less than 90 mmHg, Patient is receiving maximum dose and is not achieving the goal of therapy If Titrate Infusion? is No : Disregard instructions below. If Titrate infusion? is Yes : Titrat e in increments of 0.2 mcg/kg/hr no more frequently than every 30 minutes to goal of therapy. If after titration rate change patient exhibits adverse hemodynamic response, next titration rate change may be adjusted by one-half of the previous rate change. I f patient fails sedation interruption, resume dexmedetomidine infusion at 50% of previous rate. diphenhydrAMINE hydrochloride 25 mg oral tablet (1 source) Histamine-1 Receptor Antagonist Start: 06-03-2022 take 25 mg by mouth once daily as needed 25 mg, Oral, NIGHTLY PRN, Starting on Mon06/03/22 at 0000, Until Discontinued, Sleep, Post-op docusate sodium 100 mg oral capsule (1 source) Start: 02-02-2016 End: 09-12-2021 docusate sodium 50 mg / sennosides, fdc 8.6 mg oral tablet (1 source) Start: 06-02-2022 take 1 tablet by mouth twice daily 1 tablet, Oral, 2 TIMES DAILY, First dose on Kathy 06/02/22 at 2100, Until Discontinued, Post-op Drug or medicament (substance) (6 sources) Start: 06-02-2022 End: 06-04-2022 3,000 mg, IntraVENous, EVERY 8 HOURS, 5 doses, First dose (after last reorder) on Kathy 06/02/22 at 2200, Last dose on 06/04/22 at 0600 Antimicrobial Indications: Surgical Prophylaxis Administer over 5 mins. Post-op Start: 09-13-2021 End: 09-29-2021 Start: 09-08-2021 End: 09-08-2021 take 1 dose intravenously once 20 millicurie, IntraVEN ous, IMG ONCE PRN, 1 dose, Starting on Mon09/08/21 at 1128, Until Discontinued, Other, Nuclear Medicine Start: 09-01-2021 End: 09-07-2021 take 0.5-4 mL intravenously every hour 25-200 mcg/hr (0.5-4 mL/hr), IntraVENous, CONTINUOUS, Starting on Mon09/01/21 at 0900, Until Mon09/07/21 at 0705 Titrate Infusion? Yes Initial Infusion Dose: 50 mcg/hr Goal of Therapy is: RASS of -1 to 1 Contact Provider if: Patient is receiving the maximum dose and is not achieving the goal of therapy If Titrate Infusion? is No : Disregard instructions below. If Titrate infusion? is Yes : Titrate in increments of 25 mcg/hr no more frequently than every 30 minutes to goal of therapy. If after titration dose change patient exhibits adverse hemodynamic response, next titration dose change may be adjusted by one-half of the previous dose change. If patient fails sedation interruption, resume infusion at 50% of previous dose. Start: 08-31-2021 End: 09-02-2021 1,500 mg (13.6 mg/kg), IntraVENous, at 125 mL/hr, Administer over 120 Minutes, EVERY 24 HOURS, First dose on Mon08/31/21 at 1000 Start: 08-30-2021 End: 08-30-2021 2,000 mg (18.1 mg/kg), IntraVENous, at 250 mL/hr, Administer over 120 Minutes, ONCE, On Mon08/30/21 at 1000, For 1 dose dulaglutide (TRULICITY) 3 mg/0.5 mL pen injector (1 source) End: 03-08-2023 dulaglutide (TRULICITY) 3 mg /0.5 mL pen injector Inject 3 mg under the skin. 0 03/08/2023 Discontinued dulaglutide 3 mg/0.5 mL pen injector (9 sources) Start: 04-19-2023 End: 07-18-2023 dulaglutide 3 mg/0.5 mL pen injector Indications: Type 2 diabetes mellitus with microalbuminuria, without long-term current use of insulin ([facility]) Inject 3 mg under the skin every 7 days. 2 mL 4 04/19/2023 07/18/2023 Discontinued (Therapy completed) Start: 04-19-2023 dulaglutide 3 mg/0.5 mL pen injector Indications: Type 2 diabetes mellitus with microalbuminuria, without long-term current use of insulin ([facility]) Inject 3 mg under the skin every 7 days. 2 mL 4 04/19/2023 Active ergocalciferol 1.25 mg oral capsule (17 sources) Provitamin D2 Compound Start: 09-12-2021 End: 09-28-2021 Vitamin D, Ergocalciferol, 56721 units CAPS 50,000 Units by Per NG tube route once a week 5 capsule 0 09/12/2021 09/28/2021 Discontinued (Therapy completed) Start: 09-04-2021 50,000 Units, Per NG tube, WEEKLY, First dose on Mon09/04/21 at 1100, Until Discontinued famotidine 20 mg oral tablet (3 sources) Histamine-2 Receptor Antagonist Start: 09-05-2021 End: 09-07-2021 20 mg, Per G Tube, 2 TIMES DAILY, First dose (after last modification) on Mon09/05/21 at 2100, Until Discontinued Renal dose adjustment per P&T Guidelines Start: 09-04-2021 End: 09-05-2021 20 mg, Per G Tube, DAILY, Fi rst dose (after last modification) on 09/04/21 at 0900, Until Discontinued Renal dose adjustment per P&T Guidelines Start: 08-31-2021 End: 09-03-2021 20 mg, Per G Tube, 2 TIMES D AILY, First dose on Mon08/31/21 at 2100, Until Discontinued fenofibrate 160 mg oral tablet (1 source) Peroxisome Proliferator Receptor alpha Agonist Start: 05-25-2022 End: 06-02-2022 take 160 mg by mouth once daily 160 mg, Oral, DAILY, First dose on Mon05/25/22 at 0900, Until Discontinued Substituted for Fenofibrate (Non-Formulary Dose). 2 ml fentaNYL 0.05 mg/ml injection (3 sources) Opioid Agonist Start: 08-30-2021 End: 09-07-2021 take 50 ug by mouth every hour as needed for pain 50 mcg, IntraVENous, EVERY 1 HOUR PRN, Starting on Mon08/30/21 at 2111, Until Mon09/07/21 at 0705, Pain Severe (7-10) If oral and IV narcotics ordered, use oral first and only use IV if oral is ineffective or cannot take oral. Do Not give oral and IV within 1 hour of each other unless specifically ordered. Start: 08-29-2021 End: 08-29-2021 take 1 dose by mouth once 100 mcg, IntraVENous, ONCE, 1 dose, On Mon08/29/21 at 0500 If oral and IV narcotics ordered, use oral first and only use IV if oral is ineffective or cannot take oral. Do Not give oral and IV within 1 hour of each other unless specifically ordered. Start: 08-29-2021 End: 08-29-2021 take 1 dose by mouth once 100 mcg, IntraVENous, ONCE, 1 dose, On Mon08/29/21 at 0315 If oral and IV narcotics ordered, use oral first and only use IV if oral is ineffective or cannot take oral. Do Not give oral and IV within 1 hour of each other unless specifically ordered. fluticasone propionate 0.05 mg/actuat metered dose nasal spray (20 sources) Corticosteroid Start: 05-27-2022 End: 06-02-2022 take 1 spray(s) nasal route twice daily as needed for rhinitis 1 spray, Each Nostril, 2 TIMES DAILY PRN, Starting on Mon05/27/22 at 0427, Until Mon06/02/22 at 1824, Rhinitis Start: 11-18-2021 take 2 spray(s) nasa l route in the morning fluticasone propionate (FLONASE) 50 mcg/actuation nasal spray Indications: Seasonal allergic rhinitis due to pollen Administer 2 sprays into each nostril in the morning. 15.8 mL 6 11/18/2021 Active take 2 spray(s) nasa l route in the morning fluticasone (Flonase) 50 MCG/ACT nasal spray Administer 2 sprays into each nostril in the morning. Shake gently. Before first use, prime pump. After use, clean tip and replace cap.. Active take 2 spray(s) nasa l route once daily fluticasone (VERAMYST) 27.5 MCG/SPRAY nasal spray 2 sprays by Each Nostril route daily 0 Active 4 ml furosemide 10 mg/ml injection (10 sources) Loop Diuretic Start: 06-05-2022 End: 06-05-2022 20 mg, IntraVENous, ONCE, 1 dose, On Mon06/05/22 at 1000 Start: 09-07-2021 40 mg, IntraVE Nous, DAILY, First dose (after last modification) on Mon09/07/21 at 0900, Until Discontinued Start: 09-05-2021 End: 09-06-2021 40 mg, IntraVENous, EVERY 12 HOURS, First dose on Mon09/05/21 at 1700, Until Discontinued Start: 09-02-2021 End: 09-04-2021 40 mg, IntraVENous, 2 TIMES DAILY, First dose on Mon09/02/21 at 1130, Until Discontinued furosemide (LASI X) 20 MG tablet Take by mouth daily 0 Active furosemide (LASI X) 10 MG/ML solution Take by mouth daily 0 Active glucagon (rdna) 1 mg injection (1 source) Antihypoglycemic Agent Start: 06-02-2022 take 1 mL intravenously every hour 1 mg, IntraMUSCular, PRN, Starting on Mon06/02/22 at 1824, Until Discontinued, Low blood sugar, Blood glucose less than 70 mg/dL and patient NOT ALERT or NPO and does not have IV access. After administration, attempt intravenous access and start D5W at 100 mL/hr. Repeat blood glucose in 15 minutes x2 and notify provider. Post-op 250 ml heparin sodium, porcine 100 unt/ml injection (4 sources) Unfractionated Heparin, Anti-coagulant Start: 05-23-2022 End: 06-02-2022 5-30 Units/kg/hr 127 kg (6.35-38.1 mL/hr, rounded to 6.4-38.1 mL/hr), IntraVENous, CONTINUOUS, Starting on 05/23/22 at 1230, Until Kathy 06/02/22 at 0000 Heparin Weight-Based Infusion (CAD/STEMI/NSTEMI/ UA/AFIB) Patient weight: 127 kg Init ial Infusion rate: 7 Units/kg/hr [Dose adjusted to reflect maximum initial infusion rate of 1000 Units/hr] (If an initial bolus is ordered, give the bolus prior to the initiation of the infusion) &nb sp;Adjust infusion rate based on aPTT results as listed below. Rate adjustments are to be based on initial weight of 127 kg. aPT T < 30 secs Heparin 60 units/kg bolus (Max = 4,000 units) then increase infusion by 4 units/kg/hr. aPTT 30-49 secs Heparin 30 units/kg bolus (Max = 2,000 units) then increase infusion by 2 units/kg/hr. aPTT 50-70 secs No bolus. No change. aPTT 71-85 secs No bolus. Decrease infusion by 2 units/kg/hr. aPTT 86-100 secs Hold heparin for 60 minutes then decrease infusion by 3 units/kg/hr. aPTT > 100 secs Hold heparin for 60 minutes then decrease infusion by 4 units/kg/hr. Check aPTT 6 hours after initiation and 6 hours after every dose change. When aPTT is within target range for two consecutive times, check aPTT once daily with morning labs. If the rate titration adjustment indicated by the nomogram causes a dose that is above the ordered range contact provider. &nb sp;If heparin drip is held or stopped for a procedure, call provider to obtain resume rate. Start: 05-23-2022 End: 06-02-2022 2,000 Units, IntraVENous, MS N, Starting on Mon05/23/22 at 1221, Until Mon06/02/22 at 1824, Other, heparin dosing algorithm Half dose re-bolus based on pharmacy algorithm Start: 09-13-2021 End: 09-14-2021 heparin flush 100 UNIT/ML injection 500 Units Start: 09-02-2021 inject 1 dose by sub cutaneous injection three times daily 5,000 Units, SubCUTAneous, EVERY 8 HOURS SCHEDULED (3 times per day), First dose on Mon09/02/21 at 1400, Until Discontinued 1 ml hydrALAZINE hydrochloride 20 mg/ml injection (2 sources) Arteriolar Vasodilator Start: 06-02-2022 5 mg, IntraVENous, EVERY 5 MIN PRN, Starting on Mon06/02/22 at 1824, Until Discontinued, High Blood Pressure, Give for sustained SBP > 160 Refer to hemodynamic goals for specific blood pressure parameters. May repeat doses up to a total of 20mg IV every 6 hours. Post-op Start: 09-07-2021 End: 09-07-2021 10 mg, IntraVENous, EVERY 6 HOURS PRN, Starting on Mon09/07/21 at 0513, Until Mon09/07/21 at 0910, High Blood Pressure, for SBP > 150 insulin lispro 100 unt/ml injectable solution (5 sources) Insulin Analog Start: 05-23-2022 End: 05-23-2022 6 Units, SubCUTAneous, ONCE, 1 dose, On Mon05/23/22 at 2115 Start: 05-23-2022 End: 06-02-2022 0-3 Units, SubCUTAneous, NIG HTLY, First dose on Mon06/02/22 at 2100, Until Discontinued If continuous tube feedings/TPN/NPO, give correction dose based on result, no reduction in dose. If eating or bolus tube feeding: Corrective Bedtime (50%) Low Dose Algorithm Glucose: Dose: 70- 139 No Insulin 140-249 1 Unit 250-349 2 Units Over 350 3 Units Post-op Start: 05-23-2022 End: 06-02-2022 0-6 Units, SubCUTAneous, 3 T IMES DAILY WITH MEALS, First dose on Kathy 06/02/22 at 1845, Until Discontinued Corrective Low Dose Algorithm Glucose: Dose: 70- 139 No Insulin 140-199 1 Unit 200-249 2 Units 250-299 3 Units 300-349 4 Units 350-399 5 Units Over 399 6 Units Post-op insulin regular (HUMULIN R;NOVOLIN R) 100 Units in sodium chloride 0.9 % 100 mL infusion (1 source) Start: 06-02-2022 End: 06-03-2022 take 1-50 [IU] intravenously every hour, then take 1-50 mL intravenously every hour 1-50 Units/hr (1-50 mL/hr), IntraVENous, CONTINUOUS, Starting on Kathy 06/02/22 at 1845, Until Mon06/03/22 at 1844 Low target 80. High target 130. Begin infusion rate by the following formula: (BG - 60) x 0.03 = insulin units per hour. Adjust current multiplier(0.03) in drip formula by doing the following steps: * Whenever BG is greater than 130 increase multiplier by 0.01 * Whenever BG is less than 80 decrease multiplier by 0.01 * Whenever BG is between 80 - 130 no change in multiplier * Recalculate insulin dose with every BG drawn, even if the multiplier does not change. If BG within range for 2 consecutive hours, may check BG every 2 hours. Post-op labetalol hydrochloride 5 mg/ml injectable solution (4 sources) beta-Adren ergic Ubaldo Start: 05-24-2022 End: 05-24-2022 10 mg, IntraVENous, ONCE, 1 dose, On Mon05/24/22 at 2345 Start: 05-24-2022 End: 05-24-2022 10 mg, IntraVENous, ONCE, 1 dose, On Mon05/24/22 at 2000 Start: 09-07-2021 10 mg, IntraVE Nous, EVERY 6 HOURS PRN, Starting on Mon09/07/21 at 0915, Until Discontinued, High Blood Pressure, SBP > 150 Do not administer if HR less than 60 Start: 09-06-2021 End: 09-07-2021 20 mg, IntraVENous, EVERY 2 HOURS PRN, Starting on Mon09/06/21 at 2238, Until Mon09/07/21 at 0910, High Blood Pressure, SBP > 150 Do not administer if HR less than 60 3 ml liraglutide 6 mg/ml pen injector (20 sources) GLP-1 Receptor Agonist Start: 04-03-2024 End: 06-10-2024 liraglutide (VICTOZA 3-ALICE) 0.6 mg/0.1 mL (18 mg/3 mL) pen injector Indications: Uncontrolled type 2 diabetes mellitus with hyperglycemia ([facility]) Inject 0.3 mL (1.8 mg total) under the skin in the morning. 3 mL 6 04/03/2024 06/10/2024 Discontinued Start: 11-27-2023 End: 11-27-2023 liraglutide (VICTOZA) 0.6 mg /0.1 mL (18 mg/3 mL) pen injector Indications: Type 2 diabetes mellitus with microalbuminuria, without long-term current use of insulin ([facility]) 1.8mg SUBCUTANEOUSLY (UNDER THE SKIN) 6 mL 6 11/27/2023 11/27/2023 Discontinued Start: 10-23-2023 End: 02-29-2024 inject 1.8 mg by subcutaneous injection once daily liraglutide (VICTOZA) 0.6 mg/0.1 mL (18 mg/3 mL) pen injector Indications: Type 2 diabetes mellitus with microalbuminuria, without long-term current use of insulin ([facility]) INJECT 1.8mg SUBCUTANEOUSLY (UNDER THE SKIN) EVERY DAY 6 mL 6 11/27/2023 Active Start: 07-19-2023 End: 10-20-2023 liraglutide (VICTOZA 3-ALICE) 0.6 mg/0.1 mL (18 mg/3 mL) pen injector Indications: Type 2 diabetes mellitus with microalbuminuria, without long-term current use of insulin ([facility]) Week one, administer 0.6 mg daily. Week two, administer 1.2 mg daily, then on week three, increase to 1.8 mg daily. 3 mL 07/19/2023 10/20/2023 Discontinued (Reorder) 1 ml LORazepam 2 mg/ml injection (2 sources) Benzodiazepine Start: 08-29-2021 End: 08-29-2021 2 mg, IntraVENous, ONCE, 1 dose, On 08/29/21 at 0245 Start: 08-29-2021 End: 08-29-2021 1 mg, IntraVENous, ONCE, 1 d ose, On 08/29/21 at 0130 magnesium hydroxide 80 mg/ml oral suspension (1 source) Start: 06-02-2022 take 30 mL by mouth once daily as needed 30 mL, Oral, DAILY PRN, Starting on Kathy 06/02/22 at 1824, Until Discontinued, Constipation First line therapy for constipation. Post-op meclizine hydrochloride 25 mg oral tablet (8 sources) Antiemetic Start: 04-24-2023 End: 07-18-2023 take 1 tablet by mouth four times daily for dizziness meclizine (ANTIVERT) 25 mg tablet take 1 tablet by mouth four times a day if needed for dizziness 04/24/2023 07/18/2023 Discontinued (Therapy completed) 2 ml midazolam 1 mg/ml injection (3 sources) Benzodiazepine Start: 09-04-2021 End: 09-04-2021 1 mg, IntraVENous, ONCE, 1 dose, On 09/04/21 at 0530 Start: 09-04-2021 End: 09-04-2021 1 dose, Starting on Sat at 0503, Until 09/04/21 at 0510 Ella Donaldson: cabinet override Ella Donaldson: cabinet override Start: 09-01-2021 End: 09-01-2021 1 mg, IntraVENous, ONCE, 1 d ose, On Mon09/01/21 at 1215 NIFEdipine 30 mg osmotic 24 hr extended release oral tablet (20 sources) Dihydropyridine Calcium Channel Ubaldo Start: 12-16-2022 End: 03-08-2023 take 1 tablet by mouth every twenty-four hours in the morning NIFEdipine XL (PROCARDIA XL) 30 mg 24 hr tablet Indications: Dilated cardiomyopathy (CMS-HCC) , Benign essential HTN Take 1 tablet (30 mg total) by mouth in the morning. 60 tablet 4 12/16/2022 03/08/2023 Discontinued (Therapy completed) Start: 08-09-2022 End: 11-07-2022 take 2 tablets by mouth twice daily NIFEdipine (PROCARDIA XL) 30 MG extended release tablet Take 2 tablets by mouth 2 times daily 360 tablet 0 08/09/2022 11/07/2022 Active Start: 05-26-2022 End: 05-28-2022 take 60 mg by mouth once daily 60 mg, Oral, DAILY, Fir st dose (after last modification) on Kathy 05/26/22 at 0900, Until Discontinued Do not crush or break. Start: 05-25-2022 End: 06-02-2022 take 90 mg by mouth once daily 90 mg, Oral, DAILY, Fir st dose (after last modification) on [facility] 05/28/22 at 0900, Until Discontinued Do not crush or break. Start: 09-08-2021 End: 05-25-2022 take 1 tablet by mouth once daily NIFEdipine (PROCARDIA XL) 30 MG extended release tablet Take 1 tablet by mouth daily 30 tablet 3 09/13/2021 Active 250 ml nitroglycerin 0.2 mg/ml injection (1 source) Nitrate Vasodilator Start: 08-29-2021 End: 08-29-2021 5-200 mcg/min (1.5-60 mL/hr), IntraVENous, CONTINUOUS, Starting on 08/29/21 at 0215, Until 08/29/21 at 0225 Titrate Infusion? Yes Initial Infusion Dose: 20 mcg/min Goal of Therapy is: SBP less than 160 mmHg Contact Provider if: SBP less than 90 mmHg If Titrate Infusion? is No : Disregard instructions below. If Titrate infusion? is Yes : If rate LESS than 20 mcg/min: Titrate by 5 mcg/min no faster than every 5 minutes to goal. If rate GREATER than or equal to 20 mcg/min: Titrate by 10 mcg/min no faster than every 5 minutes to goal. ondansetron 4 mg disintegrating oral tablet (3 sources) Serotonin-3 Receptor Antagonist Start: 04-24-2023 End: 05-10-2023 ondansetron ODT (ZOFRAN ODT) 4 mg disintegrating tablet dissolve 1 tablet ON TONGUE every 6 hours if needed for nausea and vomiting 0 04/24/2023 05/10/2023 Discontinued (Therapy completed) oxyCODONE hydrochloride 1 mg/ml oral solution (2 sources) Opioid Agonist Start: 09-05-2021 End: 09-07-2021 10 mg, Per NG tube, EVERY 6 HOURS, First dose (after last modification) on 09/05/21 at 2300, Until Discontinued Give via OGT Start: 09-04-2021 End: 09-05-2021 5 mg, Per NG tube, EVERY 6 H OURS, First dose (after last modification) on 09/04/21 at 1100, Until Discontinued Give via OGT pantoprazole (PROTONIX) 40 mg in sodium chloride (PF) 0.9 % 10 mL injection (1 source) Start: 06-02-2022 End: 06-04-2022 40 mg, IntraVENous, DAILY, First dose on Kathy 06/02/22 at 1845 Reconstitute with 10 mL 0.9 % sodium chloride and administer over at least 2 minutes. Post-op potassium bicarbonate 20 meq effervescent oral tablet (1 source) Start: 09-07-2021 End: 09-07-2021 20 mEq, Oral, ONCE, 1 dose, On 09/07/21 at 1945 Do not chew or crush. Dissol ve flavored tablets completely in 3 to 4 ounces of cold water; unflavored tablets may be dissolved in 3 to 4 ounces of cold juice. Patien t to sip slowly over a 5 to 10 minute period. May further dilute if GI adverse effects occur. QUEtiapine 25 mg oral tablet (2 sources) Atypical Antipsychotic Start: 09-04-2021 End: 09-10-2021 take 25 mg by mouth once daily 25 mg, Oral, NIGHTLY, First dose (after last modification) on Mon09/10/21 at 2230, Until Discontinued Per OG salmon calcitonin 200 unt/ml injectable solution (1 source) Calcitonin Start: 09-06-2021 End: 09-07-2021 100 Units, IntraMUSCular, DAILY, 2 doses, First dose on Mon09/06/21 at 1415, Last dose on Mon09/07/21 at 0900 Stop after 2 doses due to decreased efficacy after 24 hours of therapy. Keep refrigerated. 10 ml sodium bicarbonate 84 mg/ml injection (1 source) Start: 06-02-2022 End: 06-05-2022 50 mEq, IntraVENous, EVERY 30 MIN PRN, Starting on Kathy 06/02/22 at 1824, Until 06/05/22 at 1823, Other, For Base deficit greater than -5 Please call CTS team if greater than 2 amps is administered Post-op 5 ml sodium chloride 9 mg/ml injection (20 sources) Start: 06-02-2022 IntraVENous, a t 50 mL/hr, PRN, Use as chaser for manifold, Starting on Kathy 06/02/22 at 1824 Use as chaser for manifold. D/C when manifold is torn down. Post-op Start: 06-02-2022 take 5-40 mL intrave nously once as needed 5-40 mL, IntraVENous, PRN, Starting on Kathy 06/02/22 at 1824, Until Discontinued, Line Care, After every IV line use For Line Patency: Peripheral IV = 5 mL; Midline or Central Line = 10 mL/lumen. If following IV push medication, administer flush at same rate as the IV push. Flush volume is determined by type of infusion therapy being given. For non-viscous solutions use: Peripheral IV = 5 mL Midline or Central Line = 10 mL/lumen For viscous solutions (i.e. blood components, parenteral nutrition, contrast media, or after obtaining blood sample) use: Peripheral IV = 10 mL Midline or Central Line = 20 mL/lumen Post-op Start: 05-31-2022 End: 06-02-2022 IntraVENous, at 5-250 mL/hr, PRN, if patient receiving piggyback infusions and maintenance fluids are not ordered OR KVO fluids to protect IV site / prevent frequent line interruptions/ long duration, Starting on Mon06/02/22 at 1824 For piggyback infusion, administer at same rate as piggyback for a total of 25 mL. Enter 25 mL into dose field and piggyback rate into rate field of order. If piggyback is infusing at a rate less than 100 mL/hr, enter 25 mL into dose field and 100 mL/hr into rate field of order. For KVO fluids, enter rate of 20 mL/hr or less into rate field of order. Post-op Start: 05-26-2022 End: 05-27-2022 IntraVENous, at 75 mL/hr, CO NTINUOUS, Starting on Mon05/26/22 at 1400 Start: 05-25-2022 End: 05-26-2022 IntraVENous, at 75 mL/hr, CO NTINUOUS, Starting on Mon05/25/22 at 1445 Start: 05-23-2022 End: 06-02-2022 take 1 dose intravenously twice daily 5-40 mL, IntraVENous, EVERY 12 HOURS SCHEDULED (2 times per day), First dose on Kathy 06/02/22 at 2100, Until Discontinued For Line Patency: Peripheral IV = 5 mL; Midline or Central Line = 10 mL/lumen. If following IV push medication, administer flush at same rate as the IV push. Flush volume is determined by type of infusion therapy being given. For non-viscous solutions use: Peripheral IV = 5 mL Midline or Central Line = 10 mL/lumen For viscous solutions (i.e. blood components, parenteral nutrition, contrast media, or after obtaining blood sample) use: Peripheral IV = 10 mL Midline or Central Line = 20 mL/lumen Post-op Start: 09-28-2021 End: 09-29-2021 sodium chloride flush 0.9 % injection 5-40 mL Start: 09-20-2021 End: 09-24-2021 sodium chloride flush 0.9 % injection 5-40 mL Start: 09-17-2021 End: 09-18-2021 sodium chloride flush 0.9 % injection 5-40 mL Start: 09-13-2021 End: 09-16-2021 sodium chloride flush 0.9 % injection 5-40 mL Start: 09-13-2021 End: 09-14-2021 0.9 % sodium chloride infusi on Start: 08-31-2021 End: 08-31-2021 500 mL (4.52 mL/kg), IntraVE Nous, at 247.9 mL/hr, Administer over 121 Minutes, ONCE, On Mon08/31/21 at 0100, For 1 dose Start: 08-29-2021 take 1 dose intraven ously twice daily 5-40 mL, IntraVENous, EVERY 12 HOURS SCHEDULED (2 times per day), First dose on Mon08/29/21 at 0900, Until Discontinued For Line Patency: Peripheral IV = 5 mL; Midline or Central Line = 10 mL/lumen. If following IV push medication, administer flush at same rate as the IV push. Flush volume is determined by type of infusion therapy being given. For non-viscous solutions use: Peripheral IV = 5 mL Midline or Central Line = 10 mL/lumen For viscous solutions (i.e. blood components, parenteral nutrition, contrast media, or after obtaining blood sample) use: Peripheral IV = 10 mL Midline or Central Line = 20 mL/lumen Start: 08-29-2021 End: 09-02-2021 IntraVENous, at 50 mL/hr, CO NTINUOUS, Starting on Mon08/31/21 at 0830 Start: 08-29-2021 take 5-40 mL intrave nously once as needed 5-40 mL, IntraVENous, PRN, Starting on Mon08/29/21 at 0640, Until Discontinued, Line Care, After every IV line use For Line Patency: Peripheral IV = 5 mL; Midline or Central Line = 10 mL/lumen. If following IV push medication, administer flush at same rate as the IV push. Flush volume is determined by type of infusion therapy being given. For non-viscous solutions use: Peripheral IV = 5 mL Midline or Central Line = 10 mL/lumen For viscous solutions (i.e. blood components, parenteral nutrition, contrast media, or after obtaining blood sample) use: Peripheral IV = 10 mL Midline or Central Line = 20 mL/lumen tirzepatide (MOUNJARO) 7.5 mg/0.5 mL pen injector (2 sources) Start: 02-29-2024 End: 04-03-2024 tirzepatide (MOUNJARO) 7.5 mg/0.5 mL pen injector Indications: Uncontrolled type 2 diabetes mellitus with hyperglycemia (CMS-HCC) , Type 2 diabetes mellitus with stage 3 chronic kidney disease and hypertension (CMS-HCC) Inject 7.5 mg under the skin every 7 days. 2 mL 6 02/29/2024 04/03/2024 Discontinued (Cost of medication) Start: 02-29-2024 tirzepatide (M OUNJARO) 7.5 mg/0.5 mL pen injector Indications: Uncontrolled type 2 diabetes mellitus with hyperglycemia (CMS-HCC) , Type 2 diabetes mellitus with stage 3 chronic kidney disease and hypertension (CMS-HCC) Inject 7.5 mg under the skin every 7 days. 2 mL 6 02/29/2024 Active vancomycin (VANCOCIN) 2,000 mg in sodium chloride 0.9 % 500 mL IVPB (1 source) Start: 06-03-2022 End: 06-03-2022 2,000 mg, IntraVENous, EVERY 12 HOURS, 3 doses, First dose on Mon06/03/22 at 0200, Last dose on Mon06/04/22 at 0200 Antimicrobial Indications: Surgical Prophylaxis Do not give if Creatinine greater than 1.4. Give first dose 12 hours after pre op dose. Post-op Problems Active Problems Problem Classification Problem Date Documented Da te Episodic/Chronic Acute cerebrovascular disease (20 sources) Cerebral embolism; Translations: [Occlusion and stenosis of unspecified cerebral artery] Onset: 11-24-2021 Chronic Acute myocardial infarction (20 sources) Non-ST elevation (NSTEMI) myocardial infarction; Translations: [Myocardial infarction] Onset: 05-23-2022 Chronic Anxiety disorders (15 sources) Anxiety; Translations: [Anxiety disorder, unspecified] Onset: 05-23-2022 Chronic Chronic kidney disease (20 sources) Chronic kidney disease stage 3; Translations: [CKD (chronic kidney disease), stage III] Onset: 12-07-2021 12-07-2021 Chronic Chronic kidney disease (4 sources) Chronic kidney disease; Translations: [Chronic kidney disease, stage 3b] Onset: 10-06-2022 Congestive heart failure; nonhypertensive (20 sources) Acute heart failure; Translations: [Heart failure, unspecified] Onset: 11-24-2021 Chronic Coronary atherosclerosis and other heart disease (20 sources) Multi vessel coronary artery disease; Translations: [Atherosclerotic heart disease of [place] coronary artery without angina pectoris] Onset: 05-27-2022 Chronic Diabetes mellitus with complications (20 sources) Hyperosmolar hyperglycemic coma due to diabetes mellitus without ketoacidosis; Translations: [Type 2 diabetes mellitus with hyperosmolarity with coma] Onset: 05-23-2022 Chronic Diabetes mellitus without complication (5 sources) Type 2 diabetes mellitus without complications; Translations: [Type 2 diabetes mellitus] Onset: 05-25-2022 01-16-2024 Chronic Diabetes mellitus without complication (2 sources) Hyperglycemia, unspecified; Translations: [Hyperglycemia] Onset: 12-31-2023 05-08-2023 Episodic Disorders of lipid metabolism (12 sources) Mixed hyperlipidemia; Translations: [Mixed hyperlipidemia] Onset: 04-03-2023 12-29-2023 Chronic Essential hypertension (20 sources) Essential hypertension; Translations: [Essential (primary) hypertension] Onset: 09-28-2021 Chronic Fever of unknown origin (20 sources) Fever; Translations: [Fever, unspecified] Episodic Fluid and electrolyte disorders (1 source) Hyperkalemia; Translations: [HYPERKALEMIA] Onset: 05-25-2022 Episodic Hypertension with complications and secondary hypertension (20 sources) Hypertensive crisis; Translations: [Hypertensive crisis, unspecified] Onset: 05-23-2022 Chronic Mood disorders (20 sources) Moderate major depression, single episode; Translations: [Major depressive disorder, single episode, moderate] Onset: 03-28-2023 03-28-2023 Chronic Nonspecific chest pain (5 sources) Chest pain, unspecified; Translations: [Chest pain, unspecified] Onset: 08-28-2021 Episodic Nutritional deficiencies (4 sources) Vitamin D deficiency; Translations: [Vitamin D deficiency, unspecified] Onset: 03-20-2024 Chronic Other aftercare (1 source) Other continuous churn buttermaker (current) drug therapy; Translations: [OTH HALF-WAY CURRENT DRUG THERAPY] Onset: 05-25-2022 Episodic Other aftercare (3 sources) group home (current) use of insulin; Translations: [roasterman (current) use of insulin] Onset: 11-14-2024 Episodic Other diseases of kidney and ureters (1 source) Disorder of kidney and ureter, unspecified; Translations: [DISORDER KIDNEY AND URETER UNS] Onset: 05-25-2022 Episodic Other endocrine disorders (20 sources) Hyperparathyroidism; Translations: [Hyperparathyroidism, unspecified] Onset: 11-18-2022 Chronic Other endocrine disorders (1 source) Hyperparathyroidism, unspecified; Translations: [Hyperparathyroidism, unspecified] Onset: 11-08-2022 Chronic Other endocrine disorders (20 sources) Primary hyperparathyroidism; Translations: [Primary hyperparathyroidism] Onset: 05-31-2022 04-19-2023 Chronic Other gastrointestinal disorders (2 sources) Loose stool; Translations: [Other fecal abnormalities] 08-09-2024 Episodic Other male genital disorders (20 sources) Prolonged erection of penis; Translations: [Priapism, unspecified] Onset: 01-31-2016 01-31-2016 Chronic Other male genital disorders (20 sources) Other and unspecified postprocedural erectile dysfunction; Translations: [Impotence of organic origin] Onset: 06-21-2022 06-21-2022 Chronic Other nutritional; endocrine; and metabolic disorders (20 sources) Hypercalcemia; Translations: [Hypercalcemia] Onset: 11-24-2021 Chronic Other nutritional; endocrine; and metabolic disorders (20 sources) Morbid obesity; Translations: [Morbid (severe) obesity due to excess calories] Onset: 05-23-2022 Chronic Other nutritional; endocrine; and metabolic disorders (1 source) Hypercalcemia; Translations: [Hypercalcemia] Onset: 09-28-2021 Chronic Other nutritional; endocrine; and metabolic disorders (1 source) Morbid (severe) obesity due to excess calories; Translations: [Morbid (severe) obesity due to excess calories] Onset: 06-15-2022 Chronic Other nutritional; endocrine; and metabolic disorders (3 sources) Hypocalcemia; Translations: [Hypocalcemia] Onset: 03-20-2024 Chronic Other nutritional; endocrine; and metabolic disorders (10 sources) History of primary hyperparathyroidism; Translations: [Personal history of other endocrine, nutritional and metabolic disease] Onset: 05-31-2022 Episodic Other nutritional; endocrine; and metabolic disorders (10 sources) History of diabetes mellitus type 2; Translations: [Personal history of other endocrine, nutritional and metabolic disease] Onset: 05-31-2022 Episodic Other upper respiratory disease (10 sources) Allergic rhinitis; Translations: [Allergic rhinitis, unspecified] Onset: 05-23-2022 Chronic Other upper respiratory disease (3 sources) Allergic rhinitis due to pollen; Translations: [Allergic rhinitis due to pollen] 03-10-2023 Chronic Other upper respiratory disease (1 source) Allergic rhinitis due to pollen; Translations: [Allergic rhinitis due to pollen] Onset: 11-23-2023 Chronic Other upper respiratory disease (1 source) Seasonal allergic rhinitis; Translations: [Other seasonal allergic rhinitis] Onset: 04-03-2023 04-03-2023 Chronic Dana-; endo-; and myocarditis; cardiomyopathy (except that caused by tuberculosis or sexually transmitted disease) (20 sources) Dilated cardiomyopathy; Translations: [Dilated cardiomyopathy] Onset: 09-28-2021 Chronic Pleurisy; pneumothorax; pulmonary collapse (20 sources) Pleural effusion; Translations: [Pleural effusion, not elsewhere classified] Episodic Residual codes; unclassified (20 sources) Obstructive sleep apnea syndrome; Translations: [Obstructive sleep apnea (adult) (pediatric)] Onset: 05-31-2022 Chronic Residual codes; unclassified (20 sources) Delirium; Translations: [Disorientation, unspecified] Episodic Substance-related disorders (1 source) Nicotine dependence, other tobacco product, uncomplicated; Translations: [NICOTINE DEPEND OTH TOB PROD UNCOMP] Onset: 05-25-2022 Chronic Unclassified (1 source) CONTACT W/AND (SUSP) EXPOS COVID-19; Translations: [CONTACT W/AND (SUSP) EXPOS COVID-19] Onset: 05-25-2022 Unclassified (1 source) High Blood Sugar - Symptomatic Onset: 12-31-2023 Unclassified (1 source) High Blood Sugar Onset: 12-31-2023 Unclassified (1 source) Dexcom Training Onset: 06-26-2023 Past or Other Problems Problem Classification Problem Date Documented Da te Episodic/Chronic Acute and unspecified renal failure (20 sources) Acute injury of kidney; Translations: [Acute kidney failure, unspecified] Onset: 11-24-2021 Episodic Coronary atherosclerosis and other heart disease (1 source) Presence of aortocoronary bypass graft; Translations: [Presence of aortocoronary bypass graft] Onset: 06-23-2022 Episodic Diseases of mouth; excluding dental (20 sources) Lesion of tongue; Translations: [Other diseases of tongue] Onset: 03-30-2023 04-19-2023 Episodic Genitourinary symptoms and ill-defined conditions (20 sources) Persistent proteinuria; Translations: [Persistent proteinuria, unspecified] Onset: 12-07-2021 12-07-2021 Episodic Mood disorders (20 sources) Mood disorders; Translations: [Depression, unspecified] Onset: 11-23-2023 Resolved: 02-29-2024 11-23-2023 Other diseases of kidney and ureters (20 sources) Cyst of kidney; Translations: [Cyst of kidney, acquired] Onset: 06-21-2022 06-21-2022 Episodic Other lower respiratory disease (20 sources) Acute pulmonary edema; Translations: [Acute pulmonary edema] Onset: 11-24-2021 Episodic Other lower respiratory disease (1 source) Snoring; Translations: [Snoring] 04-19-2023 Episodic Other skin disorders (1 source) Folliculitis; Translations: [Follicular disorder, unspecified] 09-20-2023 Episodic Other skin disorders (1 source) Follicular disorder, unspecified; Translations: [Follicular disorder, unspecified] Onset: 09-20-2023 Episodic Dana-; endo-; and myocarditis; cardiomyopathy (except that caused by tuberculosis or sexually transmitted disease) (20 sources) Pericardial effusion; Translations: [Pericardial effusion (noninflammatory)] Onset: 08-29-2021 Episodic Pneumonia (except that caused by tuberculosis or sexually transmitted disease) (20 sources) Pneumonia due to Staphylococcus aureus; Translations: [Pneumonia due to Methicillin susceptible Staphylococcus aureus] Onset: 11-24-2021 Episodic Residual codes; unclassified (2 sources) Other specified postprocedural states; Translations: [Other specified postprocedural states] Onset: 03-20-2024 Episodic Respiratory failure; insufficiency; arrest (adult) (20 sources) Acute respiratory failure; Translations: [Acute respiratory failure, unspecified whether with hypoxia or hypercapnia] Onset: 08-29-2021 Episodic Septicemia (except in labor) (20 sources) Sepsis due to Streptococcus; Translations: [Streptococcal sepsis, unspecified] Onset: 09-13-2021 Episodic Unclassified (20 sources) Onset: 11-23-2023 Resolved: 06-10-2024 11-23-2023 Viral infection (20 sources) Disease due to Rhinovirus; Translations: [Other viral infections of unspecified site] Onset: 11-24-2021 Episodic Results Test Name Value Interpretation Reference Range Facility [facility] 11-14-2024 37 Please contact the office for test results in one (1) week from test date if you are not informed While on GLP1 receptor agonist or GLP1/GIP dual agonist Daily: Victoza??? or Sexanda??? (liraglutide), Adlyxin??? (lixisenatide), Rybelsus??? (oral semaglutide), Byetta??? (exenatide)-twice daily Weekly: Trulicity??? (dulaglitide), Ozempic??? or Wegovy??? (semaglutide), Mounjaro??? or Zepbound??? (tirzepatide), Bydureon??? (exenatide) Stay well-hydrated. Try to eat small portions during meals and eat only to hunger. Watch for nausea, vomiting, abdominal discomfort, bloating/early fullness, constipation or diarrhea Watch for hypoglycemia (low blood glucose, <70 mg/dL), especially if you are using insulin or sulfonylurea. When you are not eating, not drinking well or become ill, stop taking it until you are able to eat and drink again. When the surgery or any procedure requiring anesthesia is planned, stop taking a weekly medication one week before it, OR a daily medication one full-day before it. In order to prevent muscle loss, consume enough protein about 1-1.2 grams per kilogram of body weight or 75-90 grams per day for a 75-kg (or 165-pound) person, and engage in resistance/enduranc e exercises regularly. While on sGLT2 inhibitor Invokana??? (Canagliflozin), Farxiga??? (dapagliflozin), Jardiance??? (empagliflozin), Steglatro??? (ertugliflozin) Stay well-hydrated. Watch for hypoglycemia (low blood glucose, <70 mg/dL), especially if you are using insulin or sulfonylurea. Watch for urinary tract infection or genital yeast infection When you are not eating, not drinking well or become ill, stop taking it until you are able to eat and drink again. When you are vomiting, have abdominal pain/discomfort and/or become dehydrated, please call our office, 911 or visit emergency room in case of developing euglycemic diabetic ketoacidosis (DKA) (diabetes medical emergency) even if glucose levels appear controlled Stop taking it 3 to 4 days prior to surgery or procedure requiring fasting to minimize the risk of ketoacidosis. Normal [facility] CBC WITH AUTO DIFFERENTIALon 11-14-2024 BASOPHILS ABSOLUTE COUNT (10*3/UL) BY AUTOMATED COUNT 0.0 10*3/uL Normal 0.0-0.2 [facility] Comment on above: Performed By: #### C BCA #### [facility] ([facility]) [address] [place] [address] VIR BASOPHILS RELATIVE PERCENT BY AUTOMATED COUNT 0.4 % Normal [facility] Comment on above: Performed By: #### C BCA #### [facility] ([facility]) [address] [place] [address] VIR CELLAVISION DIFFERENTIAL TYPE AUTOMATED DIFFERENTIAL Normal [facility] Comment on above: Performed By: #### C BCA #### [facility] ([facility]) [address] [place] [address] VIR Eosinophils (Bld) [#/Vol] 0.1 10*3/uL Normal 0.0-0.4 [facility] Comment on above: Performed By: #### C BCA #### [facility] ([facility]) [address] [place] [address] VIR EOSINOPHILS RELATIVE PERCENT BY AUTOMATED COUNT 0.8 % Normal [facility] Comment on above: Performed By: #### C BCA #### [facility] ([facility]) [address] [place] [address] VIR Erythrocyte distribution width (RBC) [Ratio] 13.9 % Normal 11.5-15 [facility] Comment on above: Performed By: #### C BCA #### [facility] ([facility]) [address] [place] [address] VIR Hematocrit (Bld) [Volume fraction] 48.8 % Normal 39-50 [facility] Comment on above: Performed By: #### C BCA #### [facility] ([facility]) [address] [place] [address] VIR Hemoglobin (Bld) [Mass/Vol] 16.1 g/dL Normal 13-17 [facility] Comment on above: Performed By: #### C BCA #### [facility] ([facility]) [address] [facility] [place] [address] VIR LYMPHOCYTES ABSOLUTE COUNT (10*3/UL) BY AUTOMATED COUNT 2.5 10*3/uL Normal 1.0-3.5 [facility] Comment on above: Performed By: #### C BCA #### [facility] ([facility]) [address] [place] [address] VIR LYMPHOCYTES RELATIVE PERCENT BY AUTOMATED COUNT 31.7 % Normal [facility] Comment on above: Performed By: #### C BCA #### [facility] ([facility]) [address] [place] [address] VIR MCH (RBC) [Entitic mass] 28.7 pg Normal 27-34 [facility] Comment on above: Performed By: #### C BCA #### [facility] ([facility]) [address] [place] [address] VIR MCHC (RBC) [Mass/Vol] 32.9 g/dL Normal 32-36 [facility] Comment on above: Performed By: #### C BCA #### [facility] ([facility]) [address] [place] [address] VIR MCV (RBC) [Entitic vol] 87 fL Normal 80-100 [facility] Comment on above: Performed By: #### C BCA #### [facility] ([facility]) [address] [place] [address] VIR MONOCYTES ABSOLUTE COUNT (10*3/UL) BY AUTOMATED COUNT 0.8 10*3/uL Normal 0.0-0.9 [facility] Comment on above: Performed By: #### C BCA #### [facility] ([facility]) [address] [place] [address] VIR MONOCYTES RELATIVE PERCENT BY AUTOMATED COUNT 9.8 % Normal [facility] Comment on above: Performed By: #### C BCA #### [facility] ([facility]) [address] [place] [address] VIR NEUTROPHILS ABSOLUTE COUNT BY AUTOMATED COUNT 4.6 10*3/uL Normal 1.5-6.6 [facility] Comment on above: Performed By: #### C BCA #### [facility] ([facility]) [address] [place] [address] VIR NEUTROPHILS RELATIVE PERCENT BY AUTOMATED COUNT 57.3 % Normal [facility] Comment on above: Performed By: #### C BCA #### [facility] ([facility]) [address] [place] [address] VIR Platelet mean volume (Bld) [Entitic vol] 9.1 fL Normal 7-12 [facility] Comment on above: Performed By: #### C BCA #### [facility] ([facility]) [address] [place] [address] VIR Platelets (Bld) [#/Vol] 203 10*3/uL Normal 150-450 [facility] Comment on above: Performed By: #### C BCA #### [facility] ([facility]) [address] [place] [address] VIR RBC COUNT 5.59 X10E12/L Normal 4.1-5.7 [facility] Comment on above: Performed By: #### C BCA #### [facility] ([facility]) [address] [place] [address] VIR WBC (Bld) [#/Vol] 7.9 10*3/uL Normal 4-11 [facility] Comment on above: Performed By: #### C BCA #### [facility] ([facility]) [address] [place] [address] VIR CREATININE, SERUMon 11-15-19 Creatinine [Mass/Vol] 2.90 mg/dL High 0.60-1.30 [facility] Comment on above: Result Comment: METH OD TRACEABLE TO IDMS STANDARD Performed By: #### C RT #### [facility] ([facility]) [address] [place] [address] VIR GFR/1.73 sq M.predicted among non-blacks MDRD (S/P/Bld) [Vol rate/Area] 27 mL/min/{1.73_m2} Low >=60 [facility] Comment on above: Result Comment: Repo rted eGFR is based on the CKD-EPI 2020 equation that does not use a race coefficient. Performed By: #### C RT #### [facility] ([facility]) [address] [place] [address] VIR Follow-Upon 11-14-2024 Follow-Up [id number] BrandinElias 1985 M Date Provider Department Center 11/14/2024 316-JACOB UGARTE [facility] ENDOCR [facility] Family History Problem Relation Age of Onset Diabetes Mother Mental illness Mother Family Status - Relation Status Age at Mother Alive Level of Service:19723 MS OFFICE/OUTPATIENT ESTABLISHED MOD MDM 30 MIN Normal [facility] LIPID PROFILEon 11-14-2024 Cholesterol [Mass/Vol] 150 mg/dL Normal 150-200 [facility] Comment on above: Performed By: #### L IPR #### [facility] ([facility]) [address] [place] [address] VIR Cholesterol in HDL [Mass/Vol] 29 mg/dL Low >39 [facility] Comment on above: Result Comment: HDL <40 mg/dL - High Risk HDL > or = 40mg/dL- Desirable HDL >60 mg/dL - Negative Risk Performed By: #### L IPR #### [facility] ([facility]) [address] [place] [address] VIR Cholesterol in LDL [Mass/Vol] 72 mg/dL Normal <130 [facility] Comment on above: Result Comment: LDL <100 mg/dL - Desirable LDL >160 mg/dL - High Risk Performed By: #### L IPR #### [facility] ([facility]) [address] [place] [address] VIR CHOLESTEROL:HDL 5.2 High 1.0-5.0 [facility] Comment on above: Performed By: #### L IPR #### [facility] ([facility]) [address] [place] [address] VIR Triglyceride [Mass/Vol] 244 mg/dL High 27-150 [facility] Comment on above: Performed By: #### L IPR #### [facility] ([facility]) [address] [place] [address] VIR VERY LOW LIPOPROTEIN 49 mg/dL High 0-30 [facility] Comment on above: Performed By: #### L IPR #### [facility] ([facility]) [address] [place] [address] VIR POCT Hemoglobin A1con 2024 HbA1c (Bld) [Mass fraction] 10 % Abnormal 4 - 7 % [facility] Interpretation and review of laboratory results Abnormal [facility] 37on 03-20-2024 37 Please contact the office for test results in one (1) week from test date if you are not informed Please take total calcium (including dietary calcium) 1,000 to 1,200 mg daily and vitamin D 600 to 800 units (15 to 20 mcg) daily. While on GLP1 receptor agonist or GLP1/GIP dual agonist Daily: Victoza??? or Sexanda??? (liraglutide), Adlyxin??? (lixisenatide), Rybelsus??? (oral semaglutide), Byetta??? (exenatide)-twice daily Weekly: Trulicity??? (dulaglitide), Ozempic??? or Wegovy??? (semaglutide), Mounjaro??? or Zepbound??? (tirzepatide), Bydureon??? (exenatide) Stay well-hydrated. Try to eat small portions during meals and eat only to hunger. Watch for nausea, vomiting, abdominal discomfort, bloating/early fullness, constipation or diarrhea Watch for hypoglycemia (low blood glucose, <70 mg/dL), especially if you are using insulin or sulfonylurea. When you are not eating, not drinking well or become ill, stop taking it until you are able to eat and drink again. When the surgery or any procedure requiring anesthesia is planned, stop taking a weekly medication one week before it, OR a daily medication one full-day before it. In order to prevent muscle loss, consume about 1-1.2 grams per kilogram of body weight or 75-90 grams per day for a 75-kg (or 165-pound) person, and engage in resistance/enduranc e exercises regularly. Normal [facility] COMPREHENSIVE METABOLIC PANE Jorge 03-20-2024 Albumin [Mass/Vol] 4.1 g/dL Normal 3.2-5.3 [facility] Comment on above: Performed By: #### C CLARA, 49746-1, 2777-1, 68905-1 #### [facility] ([id number]) [address] [place] [address] ALP [Catalytic activity/Vol] 78 U/L Normal 39-130 [facility] Comment on above: Performed By: #### C CLARA, 24290-5, 2777-1, 75567-1 #### [facility] ([id number]) [address], [address] [place] [address] ALT [Catalytic activity/Vol] 30 U/L Normal 0-40 [facility] Comment on above: Performed By: #### C CLARA, , 2776-, 88808-3 #### [facility] ([id number]) [address], [address] [place] [address] Anion gap [Moles/Vol] 7 mmol/L Normal 5-15 [facility] Comment on above: Performed By: #### C CLARA, , 2776-, 66059-4 #### [facility] ([id number]) [address], [address] [place] [address] AST [Catalytic activity/Vol] 20 U/L Normal 0-41 [facility] Comment on above: Performed By: #### C CLARA, , 2776-03, 52167-1 #### [facility] ([id number]) [address], [address] [place] [address] Bilirubin [Mass/Vol] 0.9 mg/dL Normal 0.3-1.2 [facility] Comment on above: Performed By: #### C CLARA, , 2776-, 53684-8 #### [facility] ([id number]) [address], [address] [place] [address] Calcium [Mass/Vol] 9.2 mg/dL Normal 8.5-10.5 [facility] Comment on above: Performed By: #### C CLARA, , 2776-, 53866-9 #### [facility] ([id number]) [address], [address] [place] [address] Chloride [Moles/Vol] 104 mmol/L Normal 98-109 [facility] Comment on above: Performed By: #### C CLARA, , 2776-, 87128-2 #### [facility] ([id number]) [address], [address] [place] [address] CO2 [Moles/Vol] 27 mmol/L Normal 22-32 [facility] Comment on above: Performed By: #### C CLARA, , 2776-, 90626-0 #### [facility] ([id number]) [address], [address] [place] [address] Creatinine [Mass/Vol] 2.17 mg/dL High 0.60-1.30 [facility] Comment on above: Result Comment: METH OD TRACEABLE TO IDMS STANDARD Performed By: #### C CLARA, , 2776-, 14830-8 #### [facility] ([id number]) [address], [address] [address] GFR/1.73 sq M.predicted among non-blacks MDRD (S/P/Bld) [Vol rate/Area] 39 mL/min/{1.73_m2} Low >59 [facility] Comment on above: Result Comment: Reported eGFR is based on the CKD-EPI 2020 equation that does not use a race coefficient. Performed By: #### C CLARA, , 2776-, 10614-7 #### [facility] ([id number]) [address], [address] [place] [address] Glucose [Mass/Vol] 220 mg/dL High 65-99 [facility] Comment on above: Performed By: #### C CLARA, , 2776-, 70257-0 #### [facility] ([id number]) [address], [address] [place] [address] Potassium [Moles/Vol] 4.9 mmol/L Normal 3.5-5.0 [facility] Comment on above: Performed By: #### C CLARA, , 2776-1, 28664-8 #### [facility] ([id number]) [address], [address] [place] [address] Protein [Mass/Vol] 8.1 g/dL High 6.0-8.0 [facility] Comment on above: Performed By: #### C CLARA, 19021-5, 2777-1, 72959-1 #### [facility] ([id number]) [address] [facility] [facility] [facility], [address] [place] [address] Sodium [Moles/Vol] 138 mmol/L Normal 134-146 [facility] Comment on above: Performed By: #### C CLARA, 37962-9, 2777-, 63409-4 #### [facility] ([id number]) [address] [facility] [facility] [facility], [address] [place] [address] Urea nitrogen [Mass/Vol] 34 mg/dL High 5-23 [facility] Comment on above: Performed By: #### C CLARA, 61217-0, 2777-, 87187-7 #### [facility] ([id number]) [address] [facility] [facility], [address] [address] Follow-Upon 03-20-2024 Follow-Up [id number] BrandinElias 1985 M Date Provider Department Center 03/20/2024 316-SHANELJACOB [facility] ENDOCR [facility] Family History Problem Relation Age of Onset Diabetes Mother Mental illness Mother Family Status - Relation Status Age at Mother Alive Level of Service:13091 MS OFFICE/OP CONSLTJ NEW/EST PT LOW MDM 30 MINUTES Reason for Visit and Comments: Follow-up [383098] Normal [facility] MAGNESIUMon 03-20-2024 Magnesium [Mass/Vol] 2.0 mg/dL Normal 1.8-2.6 [facility] Comment on above: Performed By: #### C CLARA, 52308-2, 2777-1, 81206-7 #### [facility] ([id number]) [address] [facility] [facility] [facility], [address] [place] [address] PHOSPHORUSon 03-20-2024 Phosphate [Mass/Vol] 3.6 mg/dL Normal 2.4-4.9 [facility] Comment on above: Performed By: #### C CLARA, 79715-7, 2777-1, 51438-6 #### [facility] ([id number]) [address], [address] [place] [address] Vitamin D+Metabolites [Mass/ Vol]on 03-20-2024 VITAMIN D 25 HYD TOT 22.4 ng/mL Low 30-100 [facility] Comment on above: Result Comment: Vitamin D status 25 [place] Vitamin D Deficiency <20 ng/mL Insufficiency 20-29 ng/mL Sufficiency 30-100 ng/mL Toxicity >100 ng/mL NOTE: A pediatric reference range has not been established by the truss driver helper of this kit. The [employer] recommends a Vitamin D level of = or >20ng/mL in infants and children. Performed By: #### C CLARA, 86312-6, 2777-1, 27520-7 #### [facility] ([id number]) [address], [address] [place] [address] POCT Hemoglobin A1con 2023 HbA1c (Bld) [Mass fraction] 8.4 % Abnormal 4 - 7 % [facility] Interpretation and review of laboratory results Abnormal [facility] Ambulatory referral to Diabe tic Educationon 02-13-2024 [facility] CBC AND AUTO DIFFon 12-31-19 ABSOLUTE BASOPHIL 0.1 X10E9/L Normal 0.0-0.2 [facility] Comment on above: Performed By: #### C BCA, CMP #### [facility] ([id number]) [address] [place] [address], [place] [address] ABSOLUTE NEUTROPHIL 3.8 X10E9/L Normal 1.5-6.6 [facility] Comment on above: Performed By: #### C BCA, CMP #### [facility] ([id number]) [address] [place] [address] Basophils/100 WBC (Bld) 0.8 % Normal [facility] Comment on above: Performed By: #### C BCA, CMP #### [facility] ([id number]) [address] [place] [address] Eosinophils (Bld) [#/Vol] 0.1 10*3/uL Normal 0.0-0.4 [facility] Comment on above: Performed By: #### C BCA, CMP #### [facility] ([id number]) [address] [place] [address] Eosinophils/100 WBC (Bld) 1.3 % Normal [facility] Comment on above: Performed By: #### C BCA, CMP #### [facility] ([id number]) [address] [place] [address] Erythrocyte distribution width (RBC) [Ratio] 14.1 % Normal 11.5-15.0 [facility] Comment on above: Performed By: #### C BCA, CMP #### [facility] ([id number]) [address] [place] [address] Hematocrit (Bld) [Volume fraction] 47.2 % Normal 39-49 [facility] Comment on above: Performed By: #### C BCA, CMP #### [facility] ([id number]) [address] [place] [address] Hemoglobin (Bld) [Mass/Vol] 15.5 g/dL Normal 13.0-17.0 [facility] Comment on above: Performed By: #### C BCA, CMP #### [facility] ([id number]) [address] [place] [address] Lymphocytes (Bld) [#/Vol] 2.4 10*3/uL Normal 1.0-3.5 [facility] Comment on above: Performed By: #### C BCA, CMP #### [facility] ([id number]) [address] [place] [address] Lymphocytes/100 WBC (Bld) 33.9 % Normal [facility] Comment on above: Performed By: #### C BCA, CMP #### [facility] ([id number]) [address] [place] [address] MCH (RBC) [Entitic mass] 29.1 pg Normal 27-34 [facility] Comment on above: Performed By: #### C BCA, CMP #### [facility] ([id number]) [address] [place] [address] 84901 MCHC (RBC) [Mass/Vol] 32.8 g/dL Normal 32-36 [facility] Comment on above: Performed By: #### C FEDE, CMP #### [facility] ([id number]) [address] [place] [address] 89438 MCV (RBC) [Entitic vol] 89 fL Normal 80-100 [facility] Comment on above: Performed By: #### C BCA, CMP #### [facility] ([id number]) [address] [place] [address] 79800 Monocytes (Bld) [#/Vol] 0.7 10*3/uL Normal 0-0.9 [facility] Comment on above: Performed By: #### C BCA, CMP #### [facility] ([id number]) [address] [place] [address] 40168 Monocytes/100 WBC (Bld) 10.1 % Normal [facility] Comment on above: Performed By: #### C BCA, CMP #### [facility] ([id number]) [address] [place] [address] 60212 Neutrophils/100 WBC (Bld) 53.9 % Normal [facility] Comment on above: Performed By: #### C BCA, CMP #### [facility] ([id number]) [address] [place] [address] 25474 Platelet mean volume (Bld) [Entitic vol] 8.8 fL Normal 7-12 [facility] Comment on above: Performed By: #### C BCA, CMP #### [facility] ([id number]) [address] [place] [address] 80213 Platelets (Bld) [#/Vol] 236 10*3/uL Normal 150-450 [facility] Comment on above: Performed By: #### C FEDE, CMP #### [facility] ([id number]) [address] [place] [address] 87608 RBC COUNT 5.31 X10E12/L Normal 4.10-5.70 [facility] Comment on above: Performed By: #### C FEDE, CMP #### [facility] ([id number]) [address] [place] [address] 16295 WBC (Bld) [#/Vol] 7.1 10*3/uL Normal 4.0-11.0 [facility] Comment on above: Performed By: #### C BCA, CMP #### [facility] ([id number]) [address] [place] [address] 46156 COMPREHENSIVE METABOLIC PANE Jorge 12-31-2023 Albumin [Mass/Vol] 4.1 g/dL Normal 3.2-5.3 [facility] Comment on above: Performed By: #### C BCA, CMP #### [facility] ([id number]) [address] [place] [address] 39158 ALP [Catalytic activity/Vol] 102 U/L Normal 39-130 [facility] Comment on above: Performed By: #### C BCA, CMP #### [facility] ([id number]) [address] [place] [address] 53559 ALT [Catalytic activity/Vol] 43 U/L High 0-40 [facility] Comment on above: Performed By: #### C BCA, CMP #### [facility] ([id number]) [address] [place] [address] 96056 Anion gap [Moles/Vol] 9 mmol/L Normal 5-15 [facility] Comment on above: Performed By: #### C BCA, CMP #### [facility] ([id number]) [address] [place] [address] 77576 AST [Catalytic activity/Vol] 23 U/L Normal 0-41 [facility] Comment on above: Performed By: #### C BCA, CMP #### [facility] ([id number]) [address] [place] [address] 58099 Bilirubin [Mass/Vol] 0.8 mg/dL Normal 0.3-1.2 [facility] Comment on above: Performed By: #### C BCA, CMP #### [facility] ([id number]) [address] [place] [address] 43081 Calcium [Mass/Vol] 8.4 mg/dL Low 8.5-10.5 [facility] Comment on above: Performed By: #### C BCA, CMP #### [facility] ([id number]) [address] [place] [address] 89664 Chloride [Moles/Vol] 107 mmol/L Normal 98-109 [facility] Comment on above: Performed By: #### C BCA, CMP #### [facility] ([id number]) [address] [place] [address] 84237 CO2 [Moles/Vol] 22 mmol/L Normal 22-32 [facility] Comment on above: Performed By: #### C BCA, CMP #### [facility] ([id number]) [address] [place] [address] 07896 Creatinine [Mass/Vol] 2.18 mg/dL High 0.70-1.20 [facility] Comment on above: Result Comment: METH OD TRACEABLE TO IDMS STANDARD Performed By: #### C BCA, CMP #### [facility] ([id number]) [address] [place] [address] 31731 GFR/1.73 sq M.predicted among non-blacks MDRD (S/P/Bld) [Vol rate/Area] 39 mL/min/{1.73_m2} Low >59 [facility] Comment on above: Result Comment: Reported eGFR is based on the CKD-EPI 2020 equation that does not use a race coefficient. Performed By: #### C BCA, CMP #### [facility] ([id number]) [address] [place] [address] 39650 Glucose [Mass/Vol] 270 mg/dL High 65-99 [facility] Comment on above: Performed By: #### C BCA, CMP #### [facility] ([id number]) [address] [place] [address] 06079 Potassium [Moles/Vol] 4.9 mmol/L Normal 3.5-5.0 [facility] Comment on above: Performed By: #### C BCA, CMP #### [facility] ([id number]) [address] [place] [address] 38503 Protein [Mass/Vol] 7.9 g/dL Normal 6.0-8.0 [facility] Comment on above: Performed By: #### C BCA, CMP #### [facility] ([id number]) [address] [place] [address] 87200 Sodium [Moles/Vol] 138 mmol/L Normal 134-146 [facility] Comment on above: Performed By: #### C FEDE, CMP #### [facility] ([id number]) [address] [facility], [place] [address] Urea nitrogen [Mass/Vol] 36 mg/dL High 5- [facility] Comment on above: Performed By: #### C FEDE, CMP #### [facility] ([id number]) [address] [facility], [place] [address] Glucose Glucometer (BldC) [M ass/Vol]on 12-31-2023 Glucose [Mass/Vol] 181 mg/dL High 65-99 [facility] Glucose [Mass/Vol] 283 mg/dL High 65-99 [facility] Lipid 1996 panelon Cholesterol [Mass/Vol] 166 mg/dL Normal 150-200 [facility] Comment on above: Performed By: #### 2 4331-1 #### [facility] ([id number]) [address] [facility], [address] [place] [address] Cholesterol in HDL [Mass/Vol] 31 mg/dL Low >39 [facility] Comment on above: Result Comment: HDL <40 mg/dL - High Risk HDL > or = 40mg/dL- Desirable HDL >60 mg/dL - Negative Risk Performed By: #### 2 4331-1 #### [facility] ([id number]) [address] [facility] [facility] [place] [address] Cholesterol in LDL [Mass/Vol] 89 mg/dL Normal <130 [facility] Comment on above: Result Comment: LDL <100 mg/dL - Desirable LDL >160 mg/dL - High Risk Performed By: #### 2 4331-1 #### [facility] ([id number]) [address] [facility] [place] [address] Cholesterol in VLDL [Mass/Vol] 46 mg/dL High 0-30 [facility] Comment on above: Performed By: #### 2 4331-1 #### [facility] ([id number]) [address] [facility] [place] [address] CHOLESTEROL:HDL 5.4 High 1.0-5.0 [facility] Comment on above: Performed By: #### 2 4331-1 #### [facility] ([id number]) [address] [facility] [place] [address] Triglyceride [Mass/Vol] 232 mg/dL High 27-150 [facility] Comment on above: Performed By: #### 2 4331-1 #### [facility] ([id number]) [address] [facility], [address] [place] [address] POCT Hemoglobin A1con 2023 HbA1c (Bld) [Mass fraction] 7.5 g/dL Abnormal 4 - 7 g/dL [facility] Interpretation and review of laboratory results Abnormal [facility] Albuminon 09-05-2023 Albumin [Mass/Vol] 4.0 g/dL Normal 3.5-5.2 [facility] Comment on above: Performed By: #### A LB, BMP, MICHAEL, CBC #### [facility] [address] [place] [address] Operator Receptionist: Sony Rinadli MD #### PTHNCA #### [facility] [address] [place], [place] [address] Operator Receptionist: Vincent Sy MD Basic Metabolic Profon 09-04 Anion gap [Moles/Vol] 11 mmol/L Normal 9-17 [facility] Comment on above: Performed By: #### A LB, BMP, MICHAEL, CBC #### [facility] [address] [place], [place] 7954683 Operator Receptionist: Sony Rinaldi MD #### PTHNCA #### [address] [address] Operator Receptionist: Vincent Sy MD BUN/CRE Ratio 15 Normal 9-20 [facility] Comment on above: Performed By: #### A LB, BMP, MICHAEL, CBC #### [facility] [address] [place] [address] [place], [place] 7941483 Operator Receptionist: Sony Rinaldi MD #### PTHNCA #### [address] [address] Operator Receptionist: Vincent Sy MD Calcium [Mass/Vol] 9.5 mg/dL Normal 8.6-10.4 [facility] Comment on above: Performed By: #### A LB, BMP, MICHAEL, CBC #### [address] [place], [place] [address]3 Operator Receptionist: Sony Rinaldi MD #### PTHNCA #### [address] [address] Operator Receptionist: Vincent Sy MD Chloride [Moles/Vol] 106 mmol/L Normal 98-107 [facility] Comment on above: Performed By: #### A LB, BMP, MICHAEL, CBC #### [facility] [address] [place] [address] [place], [place] 9881683 Operator Receptionist: Sony Rinaldi MD #### PTHNCA #### [address] [address] Operator Receptionist: Vincent Sy MD CO2 [Moles/Vol] 22 mmol/L Normal 20-31 [facility] Comment on above: Performed By: #### A LB, BMP, MICHAEL, CBC #### [facility] [address] [place] [address] [place] [address] Operator Receptionist: Sony Rinaldi MD #### PTHNCA #### [facility] [address] [place], [place] 6225408 Operator Receptionist: Vincent Sy MD Creatinine [Mass/Vol] 2.0 mg/dL High 0.7-1.2 [facility] Comment on above: Performed By: #### A LB, BMP, MICHAEL, CBC #### [facility] [address] [place] [address] [place] [address] Operator Receptionist: Sony Rinaldi MD #### PTHNCA #### [place] [address] [place], [place] 9877208 Operator Receptionist: Vincent Sy MD GFR/1.73 sq M.predicted among non-blacks MDRD (S/P/Bld) [Vol rate/Area] 43 mL/min/{1.73_m2} Low >60 [facility] Comment on above: Result Comment: These results are not intended for use in patients <18 years of age. eGFR results are calculated without a race factor using the 2020 CKD-EPI equation. Careful clinical correlation is recommended, particularly when comparing to results calculated using previous equations. The CKD-EPI equation is less accurate in patients with extremes of muscle mass, extra-renal metabolism of creatine, excessive creatine ingestion, or following therapy that affects renal tubular secretion. Performed By: #### A LB, BMP, MICHAEL, CBC #### [address] [place], [place] 6676883 Operator Receptionist: Sony Rinaldi MD #### PTHNCA #### [facility] [address] [place], [place] 6534708 Operator Receptionist: Vincent Sy MD Glucose [Mass/Vol] 181 mg/dL High 70-99 [facility] Comment on above: Performed By: #### A LB, BMP, MICHAEL, CBC #### [address] [place] [address] Operator Receptionist: Sony Rinaldi MD #### PTHNCA #### [address] [place], [place] 3308008 Operator Receptionist: Vincent Sy MD Potassium [Moles/Vol] 4.8 mmol/L Normal 3.7-5.3 [facility] Comment on above: Performed By: #### A LB, BMP, MICHAEL, CBC #### [address] [place], [place] 96[address]83 Operator Receptionist: Sony Rinaldi MD #### PTHNCA #### [address] [phone] Operator Receptionist: Vincent Sy MD Sodium [Moles/Vol] 139 mmol/L Normal 135-144 [facility] Comment on above: Performed By: #### A LB, BMP, MICHAEL, CBC #### [address] [place] [phone] ( Operator Receptionist: Sony Rinaldi MD #### PTHNCA #### [address] [phone] Operator Receptionist: Vincent Sy MD Urea nitrogen [Mass/Vol] 29 mg/dL High 6-20 [facility] Comment on above: Performed By: #### A LB, BMP, MICHAEL, CBC #### [address] [place], [place] 8689383 Operator Receptionist: Sony Rinaldi MD #### PTHNCA #### [address] [address] Operator Receptionist: Vincent Sy MD CBCon 09-05-2023 Erythrocyte distribution width (RBC) [Ratio] 14.2 % Normal 11.8-14.4 [facility] Comment on above: Performed By: #### A LB, BMP, MICHAEL, CBC #### [address] [place], [place] 0023683 Operator Receptionist: Sony Rinaldi MD #### PTHNCA #### [address] [phone] Operator Receptionist: Vincent Sy MD Hematocrit (Bld) [Volume fraction] 49.9 % Normal 40.7-50.3 [facility] Comment on above: Performed By: #### A LB, BMP, MICHAEL, CBC #### [address] [place] [phone] Operator Receptionist: Sony Rinaldi MD #### PTHNCA #### [place] [phone] Operator Receptionist: Vincent Sy MD Hemoglobin (Bld) [Mass/Vol] 16.3 g/dL Normal 13.0-17.0 [facility] Comment on above: Performed By: #### A LB, BMP, MICHAEL, CBC #### [address] [place] [phone] Operator Receptionist: Sony Rinaldi MD #### PTHNCA #### [place] [address] Operator Receptionist: Vincent Sy MD MCH (RBC) [Entitic mass] 28.7 pg Normal 25.2-33.5 [facility] Comment on above: Performed By: #### A LB, BMP, MICHAEL, CBC #### [address] [place] [phone] Operator Receptionist: Sony Rinaldi MD #### PTHNCA #### [place] [phone] Operator Receptionist: Vincent Sy MD MCHC (RBC) [Mass/Vol] 32.7 g/dL Normal 28.4-34.8 [facility] Comment on above: Performed By: #### A LB, BMP, MICHAEL, CBC #### [address] [place] [address] Operator Receptionist: Sony Rinaldi MD #### PTHNCA #### [place] [address] [place], [place] 1152908 Operator Receptionist: Vincent Sy MD MCV (RBC) [Entitic vol] 88.0 fL Normal 82.6-102.9 [facility] Comment on above: Performed By: #### A LB, BMP, MICHAEL, CBC #### [facility] [address] [place] [address] [place] [address] Operator Receptionist: Sony Rinaldi MD #### PTHNCA #### [address] [address] Operator Receptionist: Vincent Sy MD NRBC Automated 0.0 per 100 WBC Normal 0.0 [facility] Comment on above: Performed By: #### A LB, BMP, MICHAEL, CBC #### [address] [place] [address] Operator Receptionist: Sony Rinaldi MD #### PTHNCA #### [address] [phone] Operator Receptionist: Vincent Sy MD Platelet mean volume (Bld) [Entitic vol] 10.7 fL Normal 8.1-13.5 [facility] Comment on above: Performed By: #### A LB, BMP, MICHAEL, CBC #### [address] [place] [address] Operator Receptionist: Sony Rinaldi MD #### PTHNCA #### [address] [phone] Operator Receptionist: Vincent Sy MD Platelets (Bld) [#/Vol] 230 10*3/uL Normal 138-453 [facility] Comment on above: Performed By: #### A LB, BMP, MICHAEL, CBC #### [facility] [place] [address] Operator Receptionist: Sony Rinaldi MD #### PTHNCA #### [place] [address] [place] [address] Operator Receptionist: Vincent Sy MD RBC (Bld) [#/Vol] 5.67 10*6/uL Normal 4.21-5.77 [facility] Comment on above: Performed By: #### A LB, BMP, MICHAEL, CBC #### [address] [place] [address] Operator Receptionist: Sony Rinaldi MD #### PTHNCA #### [address] [place] [address] Operator Receptionist: Vincent Sy MD WBC (Bld) [#/Vol] 7.2 10*3/uL Normal 3.5-11.3 [facility] Comment on above: Performed By: #### A LB, BMP, MICHAEL, CBC #### [address] [place] [address] Operator Receptionist: Sony Rinaldi MD #### PTHNCA #### [address] [place] [place] [address] Operator Receptionist: Vincent Sy MD PTH, Intacton 09-05-2023 PTH, Intact 38.0 pg/mL Normal 15-65 [facility] Comment on above: Performed By: #### U TPHO, UTK, UTCA #### [address] [address] Operator Receptionist: Vincent Sy MD [address] [place], [place] 0324[address] Operator Receptionist: Sony Rinaldi MD #### UTTP, UTCRE #### [address] [place] 7649183 Operator Receptionist: Sony Rinaldi MD Phosphorus, Inorg.on 024 Phosphorus, Inorg. 3.4 mg/dL Normal 2.5-4.5 [facility] Comment on above: Performed By: #### A LB, BMP, MICHAEL, CBC #### [facility] [address] [place], [place] 9693283 Operator Receptionist: Sony Rinaldi MD #### PTHNCA #### [facility] [address] [place], [place] 4264408 Operator Receptionist: Vincent Sy MD Protein,Tot,[place] 2023 Creatinine [Mass/Vol] 53.3 mg/dL Normal 39.0-259.0 [facility] Comment on above: Performed By: #### U RTPRT #### [facility] [address] [place], [place] 6318683 Operator Receptionist: Sony Rinaldi MD Tot Prot. Conc. 57 mg/dL Normal [facility] Comment on above: Result Comment: No n ormal range established. Performed By: #### U RTPRT #### [address] [place], [place] 0886983 Operator Receptionist: Sony Rinaldi MD TP/Cre Ratio 1.07 High 0.00-0.20 [facility] Comment on above: Performed By: #### U RTPRT #### [address] [place], [place] 8945783 Operator Receptionist: Sony Rinaldi MD POCT Hemoglobin A1con 2023 HbA1c (Bld) [Mass fraction] 8.2 g/dL Abnormal 4 - 7 g/dL [facility] Interpretation and review of laboratory results Abnormal [facility] ALT No additional P-5'-P [Ca talytic activity/Vol]on 06-20-2023 ALT [Catalytic activity/Vol] 52 U/L High 0-40 [facility] Comment on above: Performed By: #### 1 744-2, 1919-10, 2156-08, 33494-0 #### [facility] ([id number]) [address], [address] [place] [address] Dre 06-20-2023 AST [Catalytic activity/Vol] 32 U/L Normal 0-41 [facility] Comment on above: Performed By: #### 1 744-2, 1919-10, 2156-08, 44940-9 #### [facility] ([id number]) [address], [address] [place] [address] CK [Catalytic activity/Vol]o n 06-20-2023 CPK 96 U/L Normal 24-195 [facility] Comment on above: Performed By: #### 1 744-2, 1919-10, 2156-08, 52428-7 #### [facility] ([id number]) [address] [facility] [address] [place] [address] Lipid 1996 panelon Cholesterol [Mass/Vol] 140 mg/dL Low 150-200 [facility] Comment on above: Performed By: #### 1 744-2, 1919-10, 2156-08, 90625-2 #### [facility] ([id number]) [address] [facility] [address] [place] [address] Cholesterol in HDL [Mass/Vol] 35 mg/dL Low >39 [facility] Comment on above: Result Comment: HDL <40 mg/dL - High Risk HDL > or = 40mg/dL- Desirable HDL >60 mg/dL - Negative Risk Performed By: #### 1 744-2, 1919-10, 2156-08, 67267-1 #### [facility] ([id number]) [address] [facility] [address] [place] [address] Cholesterol in LDL [Mass/Vol] 62 mg/dL Normal <130 [facility] Comment on above: Result Comment: LDL <100 mg/dL - Desirable LDL >160 mg/dL - High Risk Performed By: #### 1 744-2, 1919-10, 2156-08, 55205-9 #### [facility] ([id number]) [address], [address] [place] [address] Cholesterol in VLDL [Mass/Vol] 43 mg/dL High 0-30 [facility] Comment on above: Performed By: #### 1 744-2, 1919-10, 2156-08, 97199-0 #### [facility] ([id number]) [address], [address] [place] [address] CHOLESTEROL:HDL 4.0 Normal 1.0-5.0 [facility] Comment on above: Performed By: #### 1 744-2, 1919-10, 2156-08, 16710-8 #### [facility] ([id number]) [address], [address] [place] [address] Triglyceride [Mass/Vol] 213 mg/dL High 27-150 [facility] Comment on above: Performed By: #### 1 744-2, 1919-10, 2156-08, 19931-0 #### [facility] ([id number]) [address], [address] [place] [address] POCT Hemoglobin A1con 2023 HbA1c (Bld) [Mass fraction] 7.3 g/dL Abnormal 4 - 7 g/dL [facility] Interpretation and review of laboratory results Abnormal [facility] Calcium, Ionicon 12-22-2022 Calcium [Moles/Vol] 1.25 mmol/L Normal 1.13-1.33 [facility] Comment on above: Performed By: #### U TPHO, UTK, UTCA #### [facility] [address] [place] [address] Operator Receptionist: Vincent Sy MD [address] [place], [place] [phone] Operator Receptionist: Sony Rinaldi MD #### UTTP, UTCRE #### [address] [place], [place] 7389383 Operator Receptionist: Sony Rinaldi MD Lipid Profileon 12-22-2022 Cholesterol [Mass/Vol] 216 mg/dL High <200 [facility] Comment on above: Result Comment: Cholesterol Guidelines: <200 Desirable 200-240 Borderline >240 Undesirable Performed By: #### U TPHO, UTK, UTCA #### [address] [address] Operator Receptionist: Vincent Sy MD [address] [place], [place] 3546183 Operator Receptionist: Sony Rinaldi MD #### UTMEHRAN, UTCRE #### [address] [place] [address]47[address] Operator Receptionist: Sony Rinaldi MD Cholesterol in HDL [Mass/Vol] 44 mg/dL Normal >40 [facility] Comment on above: Result Comment: HDL Guidelines: <40 Undesirable 40-59 Borderline >59 Desirable Performed By: #### U TPHO, UTK, UTCA #### [facility] [address] [place] [address] Operator Receptionist: Vincent Sy MD [address] [place], [place] 5747083 Operator Receptionist: Sony Rinaldi MD #### UTTP, UTCRE #### [address] [place], [place] 2521983 Operator Receptionist: Sony Rinaldi MD Cholesterol in LDL [Mass/Vol] 113 mg/dL Normal 0-130 [facility] Comment on above: Result Comment: LDL Guidelines: <100 Desirable 100-129 Near to/above Desirable 130-159 Borderline >159 Undesirable Direct (measured) LDL and calculated LDL are not interchangeable tests. Performed By: #### U TPHO, UTK, UTCA #### [facility] [address] [place] [address] Operator Receptionist: Vincent Sy MD [address] [place], [place] 2452283 Operator Receptionist: Sony Rinaldi MD #### UTMEHRAN, UTCRE #### [address] [place], [place] 1941683 Operator Receptionist: Sony Rinaldi MD Cholesterol.total/Josefina sterol in HDL [Mass ratio] 4.9 {ratio} Normal <5 [facility] Comment on above: Performed By: #### U TPHO, UTK, UTCA #### [facility] [address] [place] [address] Operator Receptionist: Vincent Sy MD [address] [place], [place] 4068483 Operator Receptionist: Sony Rinaldi MD #### UTMEHRAN, UTCRE #### [address] [place] [address] Operator Receptionist: Sony Rinaldi MD Triglyceride [Mass/Vol] 296 mg/dL High <150 [facility] Comment on above: Result Comment: Triglyceride Guidelines: <150 Desirable 150-199 Borderline 200-499 High >499 Very high Based on AHA Guidelines for fasting triglyceride, December 2011. Performed By: #### U TPHO, UTK, UTCA #### [facility] [address] [place] [address] Operator Receptionist: Vincent Sy MD [facility] [address] [place] [address] Dr[address] [place], [place] 5858283 Operator Receptionist: Sony Rinaldi MD #### UTTP, UTCRE #### [address] [place], [place] 067[address]83 Operator Receptionist: Sony Rinaldi MD PTH, Intacton 12-22-2022 PTH, Intact 168.4 pg/mL High 14.0-72.0 [facility] Comment on above: Result Comment: SAMP LES FROM PATIENTS ROUTINELY RECEIVING HIGH DOSE BIOTIN THERAPY MAY SHOW FALSELY DEPRESSED RESULTS. ADDITIONAL INFORMATION MAY BE REQUIRED FOR DIAGNOSIS. Performed By: #### U TPHO, UTK, UTCA #### [facility] [address] [place] [address] Operator Receptionist: Vincent Sy MD [address] [place] [address] Operator Receptionist: Sony Rinaldi MD #### UTMEHRAN, UTCRE #### [address] [place] [address] Operator Receptionist: Sony Rinaldi MD Dre 12-21-2022 AST [Catalytic activity/Vol] 47 U/L High <40 [facility] [place] Comment on above: Performed By: #### U TPHO, UTK, UTCA #### [facility] [address] [place] [address] Operator Receptionist: Vincent Sy MD [facility] [address] [place] [address] [place] [address] Operator Receptionist: Sony Rinaldi MD #### UTTP, UTCRE #### [address] [place] [address] Operator Receptionist: Sony Rinaldi MD Basic Metabolic Profon 12-21 Anion gap [Moles/Vol] 12 mmol/L Normal 9-17 [facility] Comment on above: Performed By: #### U TPHO, UTK, UTCA #### [facility] [address] [place] [address] Operator Receptionist: Vincent Sy MD [facility] [address] [place] [address] Dr. [place], [place] [phone] Operator Receptionist: Sony Rinaldi MD #### UTTP, UTCRE #### [facility] [address] [place] [address] Dr. [place], [place] [phone] Operator Receptionist: Sony Rinaldi MD BUN/CRE Ratio 14 Normal 9-20 [facility] Comment on above: Performed By: #### U TPHO, UTK, UTCA #### [facility] [address] [place] [address] Operator Receptionist: Vincent Sy MD [address] [place], [place] [phone] Operator Receptionist: Sony Rinaldi MD #### UTMEHRAN, UTCRE #### [facility] [address] [place] [address] Dr. [place], [place] [phone] Operator Receptionist: Sony Rinaldi MD Calcium [Mass/Vol] 8.9 mg/dL Normal 8.6-10.4 [facility] Comment on above: Performed By: #### U TPHO, UTK, UTCA #### [facility] [address] [place] [address] Operator Receptionist: Vincent Sy MD [address] [place], [place] [phone] Operator Receptionist: Sony Rinaldi MD #### UTMEHRAN, UTCRE #### [facility] [address] [place] [address] Dr. [place], [place] [phone] Operator Receptionist: Sony Rinaldi MD Chloride [Moles/Vol] 105 mmol/L Normal 98-107 [facility] Comment on above: Performed By: #### U TPHO, UTK, UTCA #### [facility] [address] [place] [address] Operator Receptionist: Vincent Sy MD [facility] [address] [place] [address] Dr. [place], [place] [phone] Operator Receptionist: Sony Rinaldi MD #### UTTP, UTCRE #### [facility] [address] [place] [address] Dr[place], [place] [phone] Operator Receptionist: Sony Rinaldi MD CO2 [Moles/Vol] 23 mmol/L Normal 20-31 [facility] Comment on above: Performed By: #### U TPHO, UTK, UTCA #### [facility] [address] [place] [address] Operator Receptionist: Vincent Sy MD [address] [place], [place] [phone] Operator Receptionist: Sony Rinaldi MD #### UTTP, UTCRE #### [facility] [address] [place] [address] Dr. [place], [place] [phone] Operator Receptionist: Sony Rinaldi MD Creatinine [Mass/Vol] 2.2 mg/dL High 0.7-1.2 [facility] Comment on above: Performed By: #### U TPHO, UTK, UTCA #### [facility] [address] [place] [address] Operator Receptionist: Vincent Sy MD [address] [place] [address] Operator Receptionist: Sony Rinaldi MD #### UTTP, UTCRE #### [address] [place], [place] [phone] Operator Receptionist: Sony Rinaldi MD GFR/1.73 sq M.predicted among non-blacks MDRD (S/P/Bld) [Vol rate/Area] 38 mL/min/{1.73_m2} Low >60 [facility] Comment on above: Result Comment: These results are not intended for use in patients <18 years of age. eGFR results are calculated without a race factor using the 2020 CKD-EPI equation. Careful clinical correlation is recommended, particularly when comparing to results calculated using previous equations. The CKD-EPI equation is less accurate in patients with extremes of muscle mass, extra-renal metabolism of creatine, excessive creatine ingestion, or following therapy that affects renal tubular secretion. Performed By: #### U BERENICE TAVERASK, UTCA #### [facility] [address] [place] [address] Operator Receptionist: Vincent Sy MD [address] [place] [address] Operator Receptionist: Sony Rinaldi MD #### UTMEHRAN, UTCRE #### [address] [place] [address] Operator Receptionist: Sony Rinaldi MD Glucose [Mass/Vol] 174 mg/dL High 70-99 [facility] Comment on above: Performed By: #### U BERENICE TAVERASK, UTCA #### [address] [address] Operator Receptionist: Vincent Sy MD [address] [place] [address] Operator Receptionist: Sony Rinaldi MD #### KAVON, BERENICECRE #### [address] [place] [address] Operator Receptionist: Sony Rinaldi MD Potassium [Moles/Vol] 4.5 mmol/L Normal 3.7-5.3 [facility] Comment on above: Performed By: #### U BERENICE TAVERASK, UTCA #### [facility] [address] [place] [address] Operator Receptionist: Vincent Sy MD [address] [place] [address] Operator Receptionist: Sony Rinaldi MD #### UTTP, UTCRE #### [address] [place] [address] Operator Receptionist: Sony Rinaldi MD Sodium [Moles/Vol] 140 mmol/L Normal 135-144 [facility] Comment on above: Performed By: #### U TPHO, UTK, UTCA #### [facility] [address] [place] [address] Operator Receptionist: Vincent Sy MD [address] [place] [address] Operator Receptionist: Sony Rinaldi MD #### UTTP, UTCRE #### [address] [place] [address] Operator Receptionist: Sony Rinaldi MD Urea nitrogen [Mass/Vol] 30 mg/dL High 6-20 [facility] Comment on above: Performed By: #### U TPHO, UTK, UTCA #### [facility] [address] [place] [address] Operator Receptionist: Vincent Sy MD [address] [place] [address] Operator Receptionist: Sony Rinaldi MD #### UTTP, UTCRE #### [address] [place], [place] [phone] Operator Receptionist: Sony Rinaldi MD Creatine Kinaseon 12-21-2022 CK [Catalytic activity/Vol] 110 U/L Normal 39-308 [facility] Comment on above: Performed By: #### U TPHO, UTK, UTCA #### [facility] [address] [place] [address] Operator Receptionist: Vincent Sy MD [address] [place], [place] [phone] Operator Receptionist: Sony Rinaldi MD #### UTTP, UTCRE #### [address] [place] [address] Operator Receptionist: Sony Rinaldi MD Protein,Tot,[place] 2022 Creatinine [Mass/Vol] 104.4 mg/dL Normal 39.0-259.0 [facility] Comment on above: Performed By: #### U TPHO, UTK, UTCA #### [facility] [address] [place] [address] Operator Receptionist: Vincent Sy MD [address] [place] [address] Operator Receptionist: Sony Rinaldi MD #### UTTP, UTCRE #### [address] [place] [phone] Operator Receptionist: Sony Rinaldi MD Tot Prot. Conc. 163 mg/dL [facility] Comment on above: Result Comment: No n ormal range established. Performed By: #### U TPHO, UTK, UTCA #### [address] [address] Operator Receptionist: Vincent Sy MD [address] [place], [place] [phone] Operator Receptionist: Sony Rinaldi MD #### KAVON, BERENICECRE #### [address] [place] [address] Operator Receptionist: Sony Rinaldi MD TP/Cre Ratio 1.56 High 0.00-0.20 [facility] Comment on above: Performed By: #### U TPHO, UTK, UTCA #### [id number] [place] [address] Operator Receptionist: Vincent Sy MD [address] [place] [phone] Operator Receptionist: Sony Rinaldi MD #### UTTP, UTCRE #### [address] [place] [address] Operator Receptionist: Sony Rinaldi MD Hemoglobin A1Con 11-10-2022 Glucose [Mass/Vol] 103 mg/dL [facility] Comment on above: Result Comment: The ADA and AACC recommend providing the estimated average glucose result to permit better patient understanding of their HBA1c result. Performed By: #### U TPHO, UTK, UTCA #### [facility] [address] [place] [address] Operator Receptionist: Vincent Sy MD [address] [place] [address] Operator Receptionist: Sony Rinaldi MD #### UTTP, UTCRE #### [address] [place] [address] Operator Receptionist: Sony Rinaldi MD HbA1c (Bld) [Mass fraction] 5.2 % Normal 4.0-6.0 [facility] Comment on above: Performed By: #### U BERENICE TAVERASK, UTCA #### [facility] [address] [place] [address] Operator Receptionist: Vincent Sy MD [address] [place] [address] Operator Receptionist: Sony Rinaldi MD #### UTMEHRAN, UTCRE #### [address] [place] [address] Operator Receptionist: Soyn Rinaldi MD PTH, Intacton 11-09-2022 PTH, Intact 267.6 pg/mL High 14.0-72.0 [facility] Comment on above: Result Comment: SAMP LES FROM PATIENTS ROUTINELY RECEIVING HIGH DOSE BIOTIN THERAPY MAY SHOW FALSELY DEPRESSED RESULTS. ADDITIONAL INFORMATION MAY BE REQUIRED FOR DIAGNOSIS. Performed By: #### U TPHO UTK, UTCA #### [facility] [address] [place] [address] Operator Receptionist: Vincent Sy MD [address] [place] [address] Operator Receptionist: Sony Rinaldi MD #### UTTP, UTCRE #### [facility] [address] [place] [address] Dr. [place], [place] [phone] Operator Receptionist: Sony Rinaldi MD Vitamin D 25 OHon 11-09-2022 Vitamin D 25 [place] 21.6 ng/mL Low >29.9 [facility] Comment on above: Result Comment: Reference Range: Vitamin D status Range Deficiency <20 ng/mL Mild Deficiency 20-30 ng/mL Sufficiency 30-100 ng/mL Toxicity >100 ng/mL Performed By: #### U TPHO, UTK, UTCA #### [facility] [address] [place] [address] Operator Receptionist: Vincent Sy MD [address] [place], [place] [phone] Operator Receptionist: Sony Rinaldi MD #### UTTP, UTCRE #### [address] [place] [phone] Operator Receptionist: Sony Rinaldi MD Albuminon 11-08-2022 Albumin [Mass/Vol] 4.3 g/dL Normal 3.5-5.2 [facility] Comment on above: Performed By: #### U TPHO, UTK, UTCA #### [facility] [address] [place] [address] Operator Receptionist: Vincent Sy MD [address] [place], [place] [phone] Operator Receptionist: Sony Rinaldi MD #### UTTP, UTCRE #### [address] [place], [place] [phone] Operator Receptionist: Sony Rinaldi MD Basic Metabolic Profon 11-08 Anion gap [Moles/Vol] 11 mmol/L Normal 9-17 [facility] Comment on above: Performed By: #### U TPHO, UTK, UTCA #### [facility] [address] [place] [address] Operator Receptionist: Vincent Sy MD [address] [place], [place] 0950083 Operator Receptionist: Sony Rinladi MD #### UTTP, UTCRE #### [address] [place], [place] [phone] Operator Receptionist: Sony Rinaldi MD BUN/CRE Ratio 14 Normal 9-20 [facility] Comment on above: Performed By: #### U TPHO, UTK, UTCA #### [facility] [address] [place] [address] Operator Receptionist: Vincent Sy MD [facility] [address] [place] [address] Dr. [place], [place] [phone] Operator Receptionist: Sony Rinaldi MD #### UTMEHRAN, UTCRE #### [address] [place], [place] 4556983 Operator Receptionist: Sony Rinaldi MD Calcium [Mass/Vol] 11.1 mg/dL High 8.6-10.4 [facility] Comment on above: Performed By: #### U TPHO, UTK, UTCA #### [facility] [address] [place] [address] Operator Receptionist: Vincent Sy MD [facility] [address] [place] [address] Dr. [place], [place] 7200583 Operator Receptionist: Sony Rinaldi MD #### UTMEHRAN, UTCRE #### [address] [place], [place] 4538883 Operator Receptionist: Sony Rinaldi MD Chloride [Moles/Vol] 110 mmol/L High 98-107 [facility] Comment on above: Performed By: #### U TPHO, UTK, UTCA #### [facility] [address] [place] [address] Operator Receptionist: Vincent Sy MD [facility] [address] [place] [address] Dr. [place], [place] [phone] Operator Receptionist: Sony Rinaldi MD #### UTTP, UTCRE #### [facility] [address] [place] [address] Dr. [place], [place] 7031783 Operator Receptionist: Sony Rinaldi MD CO2 [Moles/Vol] 23 mmol/L Normal 20-31 [facility] Comment on above: Performed By: #### U TPHO, UTK, UTCA #### [facility] [address] [place] [address] Operator Receptionist: Vincent Sy MD [address] [place] [address] Operator Receptionist: Sony Rinaldi MD #### UTTP, UTCRE #### [address] [place] [phone] Operator Receptionist: Sony Rinaldi MD Creatinine [Mass/Vol] 2.1 mg/dL High 0.7-1.2 [facility] Comment on above: Performed By: #### U TPHO, UTK, UTCA #### [facility] [address] [place] [address] Operator Receptionist: Vincent Sy MD [address] [place] [address] Operator Receptionist: Sony Rinaldi MD #### UTTP, UTCRE #### [address] [place] 8197783 Operator Receptionist: Sony Rinaldi MD GFR/1.73 sq M.predicted among non-blacks MDRD (S/P/Bld) [Vol rate/Area] 41 mL/min/{1.73_m2} Low >60 [facility] Comment on above: Result Comment: These results are not intended for use in patients <18 years of age. eGFR results are calculated without a race factor using the 2020 CKD-EPI equation. Careful clinical correlation is recommended, particularly when comparing to results calculated using previous equations. The CKD-EPI equation is less accurate in patients with extremes of muscle mass, extra-renal metabolism of creatine, excessive creatine ingestion, or following therapy that affects renal tubular secretion. Performed By: #### U BERENICE TAVERASK, UTCA #### [id number] [place] [address] Operator Receptionist: Vincent Sy MD [address] [place] [address] Operator Receptionist: Sony Rinaldi MD #### UTMEHRAN, UTCRE #### [address] [place] [address] Operator Receptionist: Sony Rinaldi MD Glucose [Mass/Vol] 116 mg/dL High 70-99 [facility] Comment on above: Performed By: #### U BERENICE TAVERASK, UTCA #### [address] [address] Operator Receptionist: Vincent Sy MD [address] [place] [address] Operator Receptionist: Sony Rinaldi MD #### UTMEHRAN, UTCRE #### [address] [place] [address] Operator Receptionist: Sony Rinaldi MD Potassium [Moles/Vol] 4.5 mmol/L Normal 3.7-5.3 [facility] Comment on above: Performed By: #### U BERENICE TAVERASK, UTCA #### [address] [address] Operator Receptionist: Vincent Sy MD [address] [place] [address] Operator Receptionist: Sony Rinaldi MD #### UTTP, UTCRE #### [address] [place] [address] Operator Receptionist: Sony Rinaldi MD Sodium [Moles/Vol] 144 mmol/L Normal 135-144 [facility] Comment on above: Performed By: #### U TPHO, UTK, UTCA #### [facility] [address] [place] [address] Operator Receptionist: Vincent Sy MD [address] [place] [address] Operator Receptionist: Sony Rinaldi MD #### UTTP, UTCRE #### [address] [place], [place] 6326383 Operator Receptionist: Sony Rinaldi MD Urea nitrogen [Mass/Vol] 30 mg/dL High 6-20 [facility] Comment on above: Performed By: #### U TPHO, UTK, UTCA #### [facility] [address] [place] [address] Operator Receptionist: Vincent Sy MD [address] [place], [place] 0681783 Operator Receptionist: Sony Rinaldi MD #### UTMEHRAN, UTCRE #### [address] [place], [place] 4641183 Operator Receptionist: Sony Rinaldi MD [facility] 11-08-2022 Erythrocyte distribution width (RBC) [Ratio] 17.2 % High 11.8-14.4 [facility] Comment on above: Performed By: #### U TPHO, UTK, UTCA #### [facility] [address] [place] [address] Operator Receptionist: Vincent Sy MD [address] [place], [place] [phone] Operator Receptionist: Sony Rinaldi MD #### UTTP, UTCRE #### [address] [place], [place] [phone] Operator Receptionist: Sony Rinaldi MD Hematocrit (Bld) [Volume fraction] 53.6 % High 40.7-50.3 [facility] Comment on above: Performed By: #### U TPHO, UTK, UTCA #### [facility] [address] [place] [address] Operator Receptionist: Vincent Sy MD [address] [place], [place] 5408083 Operator Receptionist: Sony Rinaldi MD #### UTTP, UTCRE #### [address] [place], [place] [phone] Operator Receptionist: Sony Rinaldi MD Hemoglobin (Bld) [Mass/Vol] 17.2 g/dL High 13.0-17.0 [facility] Comment on above: Performed By: #### U TPHO, UTK, UTCA #### [facility] [address] [place] [address] Operator Receptionist: Vincent Sy MD [address] [place] 9324483 Operator Receptionist: Sony Rinaldi MD #### UTMEHRAN, UTCRE #### [address] [place] [phone] Operator Receptionist: Sony Rinaldi MD MCH (RBC) [Entitic mass] 27.2 pg Normal 25.2-33.5 [facility] Comment on above: Performed By: #### U TPHO, UTK, UTCA #### [facility] [address] [place] [address] Operator Receptionist: Vincent Sy MD [address] [place], [place] 6689983 Operator Receptionist: Sony Rinaldi MD #### UTTP, UTCRE #### [address] [place] 0306683 Operator Receptionist: Sony Rinaldi MD MCHC (RBC) [Mass/Vol] 32.1 g/dL Normal 28.4-34.8 [facility] Comment on above: Performed By: #### U TPHO, UTK, UTCA #### [address] [id number] Operator Receptionist: Vincent Sy MD [address] [place] [address] Operator Receptionist: Sony Rinaldi MD #### UTMEHRAN, UTCRE #### [address] [place] 9324483 Operator Receptionist: Sony Rinaldi MD MCV (RBC) [Entitic vol] 84.7 fL Normal 82.6-102.9 [facility] Comment on above: Performed By: #### U TPHO, UTK, UTCA #### [address] [address] Operator Receptionist: Vincent Sy MD [address] [place] [address] Operator Receptionist: Sony Rinaldi MD #### KAVON, BERENICECRE #### [address] [place] [address] Operator Receptionist: Sony Rinaldi MD NRBC Automated 0.0 per 100 WBC Normal 0.0 [facility] Comment on above: Performed By: #### U TPHO, UTK, UTCA #### [address] [address] Operator Receptionist: Vincent Sy MD [address] [place] [address] Operator Receptionist: Sony Rinaldi MD #### UTMEHRAN, UTCRE #### [address] [place] 9324483 Operator Receptionist: Sony Rinaldi MD Platelet mean volume (Bld) [Entitic vol] 9.5 fL Normal 8.1-13.5 [facility] Comment on above: Performed By: #### U TPHO, UTK, UTCA #### [facility] [address] [place] [address] Operator Receptionist: Vincent Sy MD [address] [place] [address] Operator Receptionist: Sony Rinaldi MD #### UTTP, UTCRE #### [address] [place] [address] Operator Receptionist: Sony Rinaldi MD Platelets (Bld) [#/Vol] 280 10*3/uL Normal 138-453 [facility] Comment on above: Performed By: #### U TPHO, UTK, UTCA #### [facility] [address] [place] [address] Operator Receptionist: Vincent Sy MD [address] [place] [address] Operator Receptionist: Sony Rinaldi MD #### UTTP, UTCRE #### [address] [place] [address] Operator Receptionist: oSny Rinaldi MD RBC (Bld) [#/Vol] 6.33 10*6/uL High 4.21-5.77 [facility] Comment on above: Performed By: #### U TPHO, UTK, UTCA #### [address] [address] Operator Receptionist: Vincent Sy MD [address] [place] [address] Operator Receptionist: Sony Rinaldi MD #### UTTP, UTCRE #### [address] [place] [address] Operator Receptionist: Sony Rinaldi MD WBC (Bld) [#/Vol] 8.9 10*3/uL Normal 3.5-11.3 [facility] Comment on above: Performed By: #### U TPHO, UTK, UTCA #### [facility] [address] [place] [address] Operator Receptionist: Vincent Sy MD [address] [place] [address] Operator Receptionist: Sony Rinaldi MD #### UTTP, UTCRE #### [address] [place] [phone] Operator Receptionist: Sony Rinaldi MD Phosphorus, Inorg.on 023 Phosphorus, Inorg. 2.8 mg/dL Normal 2.5-4.5 [facility] Comment on above: Performed By: #### U TPHO, UTK, UTCA #### [address] [address] Operator Receptionist: Vincent Sy MD [address] [place] 9324483 Operator Receptionist: Sony Rinaldi MD #### UTTP, UTCRE #### [address] [place] [facility] Operator Receptionist: Sony Rinaldi MD Protein,Tot,[place] 2022 Creatinine [Mass/Vol] 91.1 mg/dL Normal 39.0-259.0 [facility] Comment on above: Performed By: #### U TPHO, UTK, UTCA #### [id number] [place] [address] Operator Receptionist: Vincent Sy MD [address] [place] [address] Operator Receptionist: Sony Rinaldi MD #### UTTP, UTCRE #### [address] [place] [phone] Operator Receptionist: Sony Rinaldi MD Tot Prot. Conc. 185 mg/dL Normal [facility] Comment on above: Result Comment: No n ormal range established. Performed By: #### U TPHO, UTK, UTCA #### [facility] [address] [place] [address] Operator Receptionist: Vincent Sy MD [address] [place] [address] Operator Receptionist: Sony Rinaldi MD #### UTTP, UTCRE #### [address] [place] [phone] Operator Receptionist: Sony Rinaldi MD TP/Cre Ratio 2.03 High 0.00-0.20 [facility] Comment on above: Performed By: #### U TPHO, UTK, UTCA #### [facility] [address] [place] [address] Operator Receptionist: Vincent Sy MD [address] [place], [place] 8751083 Operator Receptionist: Sony Rinaldi MD #### UTTP, UTCRE #### [address] [place], [place] [phone] Operator Receptionist: Sony Rinaldi MD US BIOPSY RENAL LEFT PERCon 10-22-2022 US BIOPSY RENAL LEFT PERC EXAMINATION: ULTRASOUND GUIDED KIDNEY BIOPSY 10/21/2022 9:44 am COMPARISON: 05/23/2022, MRI 09/01/2021 HISTORY: ORDERING SYSTEM PROVIDED HISTORY: Stage 3b chronic kidney disease (HCC) Proteinuria FINDINGS: Informed consent was obtained from the patient after discussing risks, indications, and benefits for the procedure. The patient was placed in prone position on the stretcher. The patient's back was prepped and draped in standard sterile fashion. 1% lidocaine used for local anesthesia. Using realtime ultrasound guidance a 19 gauge needle was advanced to the lower pole cortex of the left kidney. Ultrasound images show safe tract and access to the kidney. 4 core biopsy specimens were obtained in coaxial fashion with a 20 gauge corvocet needle. Ultrasound images show placement needle within the kidney on all occasions. Samples were placed on slides and given directly to the pathologist for review. Preliminary evaluation confirms adequate specimens for assessment. Postprocedure images show no local complication. The tract was embolized with a small amount of Gelfoam slurry upon removing the guide needle. Needle was removed and a sterile dressing applied after holding firm pressure for approximately 5 minutes. There are no immediate complications. The patient left the department and was sent to the recovery area in stable condition. EBL: Minimal. IMPRESSION: Successful ultrasound-guided core biopsy of the left kidney for cortex evaluation. Interpreted by: Juma Zuñiga MD Signed by: Juma Zuñiga MD 10/21/22 Final result Normal [facility] US GUIDED NEEDLE PLACEMENTon 10-22-2022 US GUIDED NEEDLE PLACEMENT EXAMINATION: ULTRASOUND GUIDED KIDNEY BIOPSY 10/21/2022 9:44 am COMPARISON: 05/23/2022, MRI 09/01/2021 HISTORY: ORDERING SYSTEM PROVIDED HISTORY: Stage 3b chronic kidney disease (HCC) Proteinuria FINDINGS: Informed consent was obtained from the patient after discussing risks, indications, and benefits for the procedure. The patient was placed in prone position on the stretcher. The patient's back was prepped and draped in standard sterile fashion. 1% lidocaine used for local anesthesia. Using realtime ultrasound guidance a 19 gauge needle was advanced to the lower pole cortex of the left kidney. Ultrasound images show safe tract and access to the kidney. 4 core biopsy specimens were obtained in coaxial fashion with a 20 gauge corvocet needle. Ultrasound images show placement needle within the kidney on all occasions. Samples were placed on slides and given directly to the pathologist for review. Preliminary evaluation confirms adequate specimens for assessment. Postprocedure images show no local complication. The tract was embolized with a small amount of Gelfoam slurry upon removing the guide needle. Needle was removed and a sterile dressing applied after holding firm pressure for approximately 5 minutes. There are no immediate complications. The patient left the department and was sent to the recovery area in stable condition. EBL: Minimal. IMPRESSION: Successful ultrasound-guided core biopsy of the left kidney for cortex evaluation. Interpreted by: Juma Zuñiga MD Signed by: Juma Zuñiga MD 10/21/22 Final result Normal [facility] APTTon 10-21-2022 aPTT Coag (Bld) [Time] 20.7 s Low 23.0-36.5 [facility] Comment on above: Result Comment: IV Heparin Therapy Range: 66.0-92.0 sec Performed By: #### B MP, MG, CBC, PT, PTT #### [address] [id number] Operator Receptionist: Vincent Sy MD PTon 10-21-2022 INR Coag (PPP) [Relative time] 0.9 {INR} Normal [facility] Comment on above: Result Comment: Therapeutic Range: Moderate Anticoagulant Intensity: INR = 2.0-3.0 High Anticoagulant Intensity: INR = 2.5-3.5 Performed By: #### B MP, MG, CBC, PT, PTT #### [address] [id number] Operator Receptionist: Vincent Sy MD PT Coag (PPP) [Time] 12.3 s Normal 11.7-14.9 [facility] Comment on above: Performed By: #### B MP, MG, CBC, PT, PTT #### [address] [id number] Operator Receptionist: Vincent Sy MD Platelet Counton 10-21-2022 Platelets (Bld) [#/Vol] 203 10*3/uL Normal 138-453 [facility] Comment on above: Performed By: #### B MP, MG, CBC, PT, PTT #### [address] [address] Operator Receptionist: Vincent Sy MD Surgical Pathologyon 023 Surgical Pathology (NOTE) Path Number: [id number] -- Diagnosis -- Left kidney, biopsy forwarded to [facility] for processing and interpretation. aPul Piper M.D. Electronically Signed Out 03/13/2010/24/2022 Clinical Information Pre-op Diagnosis: CKD 3, KIDNEY FUSION, HIGH PROTEIN IN URINE, CREATININE 2.1; BUN 14; PT 12.3, PTT 20.7, INR 0.9 Operative Findings: LEFT KIDNEY tm Source of Specimen A: LEFT KIDNEY BIOPSY SENT OUT TO [facility] Intraoperative Diagnosis Episode #1: 3 cores, recommend additional. Episode #2: 1 core, adequate. (RDD) RDD Gross Description ELIAS WALKER, UNDESIGNATED Biopsies are examined at the time of biopsy for assessment of adequacy by Dr. Paul Piper. Four cores, 5-14 mm long and < 1 mm diameter. The specimen is subdivided and placed into appropriate transport medium and sent out [facility] in [place], [place]. Gross only. Ds tm RDD/tb1:10/24/2022 Microscopic Description Microscopic examination performed. Processing Lab: [address] [id number] Interpretation Performed at [address] [id number] SURGICAL PATHOLOGY CONSULTATION Patient Name: ELIAS WALKER [facility] Rec: [id number] [facility] ANATOMIC PATHOLOGY [address] [place] [id number] Normal [facility] Calcium,Timed Uron 3 Calcium [Mass/Vol] 8.9 mg/dL Normal [facility] Comment on above: Performed By: #### U TPHO, UTK, UTCA #### [address] [phone] Operator Receptionist: Vincent Sy MD [address] [place] [address] Operator Receptionist: Sony Rinaldi MD #### UTTP, UTCRE #### [address] [place] [address] Operator Receptionist: Sony Rinaldi MD Calcium Excreted,Ur 231 mg/24 h Normal 25-300 [facility] Comment on above: Performed By: #### U TPHO, UTK, UTCA #### [address] [id number] Operator Receptionist: Vincent Sy MD [address] [place], [facility] Operator Receptionist: Sony Rinaldi MD #### UTTP, UTCRE #### [address] [place] [phone] Operator Receptionist: Sony Rinaldi MD Phos,Inorg,Timed Uron 2022 Phos,Inorg,conc,Ur 43.1 mg/dL Normal [facility] Comment on above: Performed By: #### U TPHO, UTK, UTCA #### [facility] [address] [place], [place] [phone] Operator Receptionist: Vincent Sy MD [address] [place] [address] Operator Receptionist: Sony Rinaldi MD #### UTMEHRAN, UTCRE #### [address] [place] [phone] Operator Receptionist: Sony Rinaldi MD Phos,Inorg,Excret,Ur 1121 mg/24 h Normal 400-1300 [facility] Comment on above: Performed By: #### U TPHO, UTK, UTCA #### [facility] [place] [address] Operator Receptionist: Vincent Sy MD [address] [place] [address] Operator Receptionist: Sony Rinaldi MD #### UTTP, UTCRE #### [address] [place] [phone] Operator Receptionist: Sony Rinaldi MD Potassium,Timed Uron 023 Potassium [Moles/Vol] 21.4 mmol/L Normal [facility] Comment on above: Result Comment: No n ormal range established. Performed By: #### U TPHO, UTK, UTCA #### [facility] [address] [place] [address] Operator Receptionist: Vincent Sy MD [address] [place], [place] [phone] Operator Receptionist: Sony Rinaldi MD #### UTTP, UTCRE #### [address] [place] [phone] Operator Receptionist: Sony Rinaldi MD Potassium Excreted,Ur 56 mmol/24 h Normal 25-125 [facility] Comment on above: Performed By: #### U TPHO, UTK, UTCA #### [address] [address] Operator Receptionist: Vincent Sy MD [address] [place] [phone] Operator Receptionist: Sony Rinaldi MD #### UTTP, UTCRE #### [address] [place] [phone] Operator Receptionist: Sony Rinaldi MD Creatinine, Timed Uron 10-06 Creatinine [Mass/Vol] 68.8 mg/dL Normal [facility] Comment on above: Performed By: #### U TPHO, UTK, UTCA #### [address] [address] Operator Receptionist: Vincent Sy MD [address] [place] [phone] Operator Receptionist: Sony Rinaldi MD #### UTTP, UTCRE #### [address] [place] [phone] Operator Receptionist: Sony Rinaldi MD Creatinine Excreted 1789 mg/24 h Normal 9713-6200 [facility] Comment on above: Performed By: #### U TPHO, UTK, UTCA #### [address] [address] Operator Receptionist: Vincent Sy MD [address] [place], [place] [phone] Operator Receptionist: oSny Rinaldi MD #### UTTP, UTCRE #### [address] [place], [place] [phone] Operator Receptionist: Sony Rinaldi MD Volume of Collection 2600 mL [facility] Comment on above: Performed By: #### U TPHO, UTK, UTCA #### [facility] [address] [place] [address] Operator Receptionist: Vincent Sy MD [address] [place] [address] Operator Receptionist: Sony Rinaldi MD #### UTTP, UTCRE #### [address] [place], [place] [phone] Operator Receptionist: Sony Rinaldi MD Hours collected 24 h [facility] Comment on above: Performed By: #### U TPHO, UTK, UTCA #### [facility] [address] [place] [address] Operator Receptionist: Vincent Sy MD [address] [place] [address] Operator Receptionist: Sony Rinaldi MD #### UTTP, UTCRE #### [address] [place], [place] [phone] Operator Receptionist: Sony Rinaldi MD Protein,Tot,Timed Uron 10-06 Protein,Tot,conc,Ur 123 mg/dL [facility] Comment on above: Performed By: #### U TPHO, UTK, UTCA #### [facility] [address] [place] [address] Operator Receptionist: Vincent Sy MD [address] [place], [place] [phone] Operator Receptionist: Sony Rinaldi MD #### UTTP, UTCRE #### [address] [place] [address] Operator Receptionist: Sony Rinaldi MD Protein,Tot,Excret,Ur 3198 mg/24 h High <151 [facility] Comment on above: Performed By: #### U TPHO, UTK, UTCA #### [facility] [address] [place] [address] Operator Receptionist: Vincent Sy MD [address] [place] [phone] Operator Receptionist: Sony Rinaldi MD #### UTTP, UTCRE #### [address] [place] [phone] Operator Receptionist: Sony Rinaldi MD Albuminon 10-04-2022 Albumin [Mass/Vol] 3.9 g/dL Normal 3.5-5.2 [facility] Comment on above: Performed By: #### U TPHO, UTK, UTCA #### [facility] [address] [place] [address] Operator Receptionist: Vincent Sy MD [address] [place], [place] [phone] Operator Receptionist: Sony Rinaldi MD #### UTTP, UTCRE #### [address] [place] [address] Operator Receptionist: Sony Rinaldi MD Basic Metabolic Profon 10-04 Anion gap [Moles/Vol] 10 mmol/L Normal 9-17 [facility] Comment on above: Performed By: #### U TPHO, UTK, UTCA #### [facility] [address] [place] [address] Operator Receptionist: Vincent Sy MD [address] [place] [address] Operator Receptionist: Sony Rinaldi MD #### UTTP, UTCRE #### [address] [place], [place] [phone] Operator Receptionist: Sony Rinaldi MD BUN/CRE Ratio 14 Normal 9-20 [facility] Comment on above: Performed By: #### U TPHO, UTK, UTCA #### [facility] [address] [place] [address] Operator Receptionist: Vincent Sy MD [address] [place], [place] [phone] Operator Receptionist: Sony Rinaldi MD #### UTMEHRAN, UTCRE #### [address] [place] [address] Operator Receptionist: Sony Rinaldi MD Calcium [Mass/Vol] 10.5 mg/dL High 8.6-10.4 [facility] Comment on above: Performed By: #### U TPHO, UTK, UTCA #### [facility] [address] [place] [address] Operator Receptionist: Vincent Sy MD [address] [place] [address] Operator Receptionist: Sony Rinaldi MD #### KAVON, UTCRE #### [address] [place] [address] Operator Receptionist: Sony Rinaldi MD Chloride [Moles/Vol] 108 mmol/L High 98-107 [facility] Comment on above: Performed By: #### U TPHO, UTK, UTCA #### [facility] [address] [place] [address] Operator Receptionist: Vincent Sy MD [address] [place], [place] [phone] Operator Receptionist: Sony Rinaldi MD #### UTTP, UTCRE #### [facility] [address] [place] [address] Dr. [place], [place] [phone] Operator Receptionist: Sony Rinaldi MD CO2 [Moles/Vol] 22 mmol/L Normal 20-31 [facility] Comment on above: Performed By: #### U TPHO, UTK, UTCA #### [facility] [address] [place] [address] Operator Receptionist: Vincent Sy MD [address] [place] [address] Operator Receptionist: Sony Rinaldi MD #### UTTP, UTCRE #### [address] [place] [phone] Operator Receptionist: Sony Rinaldi MD Creatinine [Mass/Vol] 2.1 mg/dL High 0.7-1.2 [facility] Comment on above: Performed By: #### U TPHO, UTK, UTCA #### [facility] [address] [place] [address] Operator Receptionist: Vincent Sy MD [address] [place] [address] Operator Receptionist: Sony Rinaldi MD #### UTTP, UTCRE #### [address] [place], [place] [phone] Operator Receptionist: Sony Rinaldi MD GFR/1.73 sq M.predicted among non-blacks MDRD (S/P/Bld) [Vol rate/Area] 41 mL/min/{1.73_m2} Low >60 [facility] Comment on above: Result Comment: These results are not intended for use in patients <18 years of age. eGFR results are calculated without a race factor using the 2020 CKD-EPI equation. Careful clinical correlation is recommended, particularly when comparing to results calculated using previous equations. The CKD-EPI equation is less accurate in patients with extremes of muscle mass, extra-renal metabolism of creatine, excessive creatine ingestion, or following therapy that affects renal tubular secretion. Performed By: #### U TPHO, UTK, UTCA #### [facility] [address] [place] [address] Operator Receptionist: Vincent Sy MD [address] [place] [address] Operator Receptionist: Sony Rinaldi MD #### UTTP, UTCRE #### [address] [place] [address] Operator Receptionist: Sony Rinaldi MD Glucose [Mass/Vol] 139 mg/dL High 70-99 [facility] Comment on above: Performed By: #### U TPHO, UTK, UTCA #### [facility] [address] [place] [address] Operator Receptionist: Vincent Sy MD [address] [place] [address] Operator Receptionist: Sony Rinaldi MD #### UTMEHRAN, UTCRE #### [address] [place] [address] Operator Receptionist: Sony Rinaldi MD Potassium [Moles/Vol] 4.8 mmol/L Normal 3.7-5.3 [facility] Comment on above: Performed By: #### U DARCY UTK, UTCA #### [address] [address] Operator Receptionist: Vincent Sy MD [address] [place] [address] Operator Receptionist: Sony Rinaldi MD #### UTTP, UTCRE #### [address] [place] [address] Operator Receptionist: Sony Rinaldi MD Sodium [Moles/Vol] 140 mmol/L Normal 135-144 [facility] Comment on above: Performed By: #### U TPHO, UTK, UTCA #### [facility] [address] [place] [address] Operator Receptionist: Vincent Sy MD [address] [place], [place] [phone] Operator Receptionist: Sony Rinaldi MD #### UTTP, UTCRE #### [address] [place], [facility] Operator Receptionist: Sony Rinaldi MD Urea nitrogen [Mass/Vol] 29 mg/dL High 6-20 [facility] Comment on above: Performed By: #### U TPHO, UTK, UTCA #### [facility] [address] [place] [address] Operator Receptionist: Vincent Sy MD [address] [place] [phone] Operator Receptionist: Sony Rinaldi MD #### UTTP, UTCRE #### [address] [place] [phone] Operator Receptionist: Sony Rinaldi MD [facility] 10-04-2022 Erythrocyte distribution width (RBC) [Ratio] 16.4 % High 11.8-14.4 [facility] Comment on above: Performed By: #### U TPHO, UTK, UTCA #### [address] [address] Operator Receptionist: Vincent Sy MD [address] [place], [facility]83 Operator Receptionist: Sony Rinaldi MD #### UTTP, UTCRE #### [address] [place], [place] [phone] Operator Receptionist: Sony Rinaldi MD Hematocrit (Bld) [Volume fraction] 52.2 % High 40.7-50.3 [facility] Comment on above: Performed By: #### U TPHO, UTK, UTCA #### [address] [address] Operator Receptionist: Vincent Sy MD [address] [place] [phone] Operator Receptionist: Sony Rinaldi MD #### UTTP, UTCRE #### [address] [place] [phone] Operator Receptionist: Sony Rinaldi MD Hemoglobin (Bld) [Mass/Vol] 16.0 g/dL Normal 13.0-17.0 [facility] Comment on above: Performed By: #### U TPHO, UTK, UTCA #### [address] [address] Operator Receptionist: Vincent Sy MD [address] [place] [phone] Operator Receptionist: Sony Rinaldi MD #### UTTP, UTCRE #### [address] [place] [phone] Operator Receptionist: Sony Rinaldi MD MCH (RBC) [Entitic mass] 26.3 pg Normal 25.2-33.5 [facility] Comment on above: Performed By: #### U TPHO, UTK, UTCA #### [address] [address] Operator Receptionist: Vincent Sy MD [address] [place] [phone] Operator Receptionist: Sony Rinaldi MD #### UTTP, UTCRE #### [address] [place] [phone] Operator Receptionist: Sony Rinaldi MD MCHC (RBC) [Mass/Vol] 30.7 g/dL Normal 28.4-34.8 [facility] Comment on above: Performed By: #### U TPHO, UTK, UTCA #### [place] [id number] [place] [address] Operator Receptionist: Vincent Sy MD [address] [place] [address] Operator Receptionist: Sony Rinaldi MD #### UTTP, UTCRE #### [address] [place] [phone] Operator Receptionist: Sony Rinaldi MD MCV (RBC) [Entitic vol] 85.9 fL Normal 82.6-102.9 [facility] Comment on above: Performed By: #### U TPHO, UTK, UTCA #### [place] [id number] [place] [address] Operator Receptionist: Vincent Sy MD [address] [place] [phone] Operator Receptionist: Sony Rinaldi MD #### UTTP, UTCRE #### [address] [place] [phone] Operator Receptionist: Sony Rinaldi MD NRBC Automated 0.0 per 100 WBC Normal 0.0 [facility] Comment on above: Performed By: #### U TPHO, UTK, UTCA #### [place] [address] [place], [place] [id number] Operator Receptionist: Vincent Sy MD [address] [place] [phone] Operator Receptionist: Sony Rinaldi MD #### UTTP, UTCRE #### [address] [place] [phone] Operator Receptionist: Sony Rinaldi MD Platelet mean volume (Bld) [Entitic vol] 10.0 fL Normal 8.1-13.5 [facility] Comment on above: Performed By: #### U TPHO, UTK, UTCA #### [facility] [address] [place] [address] Operator Receptionist: Vincent Sy MD [address] [place] [address] Operator Receptionist: Sony Rinaldi MD #### UTTP, UTCRE #### [address] [place] [address] Operator Receptionist: Sony Rinaldi MD Platelets (Bld) [#/Vol] 267 10*3/uL Normal 138-453 [facility] Comment on above: Performed By: #### U TPHO, UTK, UTCA #### [facility] [address] [place] [address] Operator Receptionist: Vincent Sy MD [address] [place] [address] Operator Receptionist: Sony Rinaldi MD #### UTTP, UTCRE #### [address] [place] [address] Operator Receptionist: Sony Rinaldi MD RBC (Bld) [#/Vol] 6.08 10*6/uL High 4.21-5.77 [facility] Comment on above: Performed By: #### U TPHO, UTK, UTCA #### [facility] [address] [place] [address] Operator Receptionist: Vincent Sy MD [address] [place] [address] Operator Receptionist: Sony Rinaldi MD #### UTTP, UTCRE #### [address] [place] [address] Operator Receptionist: Sony Rinaldi MD WBC (Bld) [#/Vol] 8.9 10*3/uL Normal 3.5-11.3 [facility] Comment on above: Performed By: #### U TPHO, UTK, UTCA #### [facility] [address] [place] [address] Operator Receptionist: Vincent Sy MD [address] [place] [address] Operator Receptionist: Sony Rinaldi MD #### UTTP, UTCRE #### [address] [place] [phone] Operator Receptionist: Sony Rinaldi MD PTH, Intacton 10-04-2022 PTH, Intact 392.1 pg/mL High 14.0-72.0 [facility] Comment on above: Result Comment: SAMP LES FROM PATIENTS ROUTINELY RECEIVING HIGH DOSE BIOTIN THERAPY MAY SHOW FALSELY DEPRESSED RESULTS. ADDITIONAL INFORMATION MAY BE REQUIRED FOR DIAGNOSIS. Performed By: #### U TPHO UTK, UTCA #### [facility] [address] [place] [address] Operator Receptionist: Vincent Sy MD [address] [place] [address] Operator Receptionist: Sony Rinaldi MD #### UTMEHRAN, UTCRE #### [address] [place] [phone] Operator Receptionist: Sony Rinaldi MD Phosphorus, Inorg.on 023 Phosphorus, Inorg. 3.1 mg/dL Normal 2.5-4.5 [facility] Comment on above: Performed By: #### U TPHO, UTK, UTCA #### [facility] [address] [place] [address] Operator Receptionist: Vincent Sy MD [address] [place] [phone] Operator Receptionist: Sony Rinaldi MD #### UTTP, UTCRE #### [address] [place] [phone] Operator Receptionist: Sony Rinaldi MD Albuminon 08-09-2022 Albumin [Mass/Vol] 4.3 g/dL 3.5 - 5.2 g/dL [facility] Basic Metabolic Panelon Anion gap [Moles/Vol] 9 mmol/L 9 - 17 mmol/L [facility] Calcium [Mass/Vol] 12.0 mg/dL High 8.6 - 10. 4 mg/dL [facility] Chloride [Moles/Vol] 109 mmol/L High 98 - 10 7 mmol/L [facility] CO2 [Moles/Vol] 24 mmol/L 20 - 31 mmol/L [facility] Creatinine [Mass/Vol] 1.95 mg/dL High 0.70 - 1.20 mg/dL [facility] GFR/1.73 sq M.predicted MDRD (S/P/Bld) [Vol rate/Area] 44 mL/min/{1.73_m2} Low - PINF [facility] Comment on above: These results are not intended for use in patients <18 years of age. eGFR results are calculated without a race factor using the 2020 CKD-EPI equation. Careful clinical correlation is recommended, particularly when comparing to results calculated using previous equations. The CKD-EPI equation is less accurate in patients with extremes of muscle mass, extra-renal metabolism of creatine, excessive creatine ingestion, or following therapy that affects renal tubular secretion. Glucose [Mass/Vol] 93 mg/dL 70 - 99 mg/dL [facility] Interpretation and review of laboratory results Abnormal [facility] Potassium [Moles/Vol] 5.1 mmol/L 3.7 - 5.3 mmol/L [facility] Sodium [Moles/Vol] 142 mmol/L 135 - 144 mmol/L [facility] Urea nitrogen [Mass/Vol] 28 mg/dL High 6 - 20 mg/dL [facility] Urea nitrogen/Creatinine [Mass ratio] 14 mg/mg 9 - 20 [facility] CBC with Auto Differentialon 08-09-2022 Basophils (Bld) [#/Vol] 0.04 10*3/uL [facility] Basophils/100 WBC (Bld) 1 % 0 - 2 % B [facility] Eosinophils (Bld) [#/Vol] 0.13 10*3/uL [facility] Eosinophils/100 WBC (Bld) 2 % 1 - 4 % [facility] Erythrocyte distribution width (RBC) [Ratio] 15.9 % High 11.8 - 14.4 % [facility] Hematocrit (Bld) [Volume fraction] 47.0 % 40.7 - 50.3 % [facility] Hemoglobin (Bld) [Mass/Vol] 14.6 g/dL 13.0 - 17.0 g/dL [facility] Immature granulocytes (Bld) [#/Vol] [facility] Immature granulocytes/100 WBC (Bld) 0 % 0 [facility] Interpretation and review of laboratory results Abnormal [facility] Lymphocytes/100 WBC (Bld) 38 % 24 - 43 % [facility] Lymphocytes/100 WBC (Bld) 2.98 % [facility] MCH (RBC) [Entitic mass] 27.5 pg 25.2 - 33.5 pg [facility] MCHC (RBC) [Mass/Vol] 31.1 g/dL 28.4 - 34.8 g/dL [facility] MCV (RBC) [Entitic vol] 88.5 fL 82.6 - 102.9 fL [facility] Monocytes/100 WBC (Bld) 10 % 3 - 12 % B ON [facility] Monocytes/100 WBC (Bld) 0.82 % B ON [facility] Neutrophils/100 WBC (Bld) 49 % 36 - 65 % [facility] NRBC Automated 0.0 0.0 per 100 WBC [facility] Platelet mean volume (Bld) [Entitic vol] 9.6 fL 8.1 - 13.5 fL [facility] Platelets (Bld) [#/Vol] 327 10*3/uL [facility] RBC (Bld) [#/Vol] 5.31 10*6/uL 4.21 - 5.7 7 m/uL [facility] Segmented neutrophils/100 WBC (Bld) 3.91 % [facility] WBC other (Bld) [#/Vol] 7.9 B ON [facility] Creatinine, Random Urineon 0 08-09-2022 Creatinine (U) [Mass/Vol] 67.6 mg/dL 39.0 - 259.0 mg/dL [facility] Magnesiumon 08-09-2022 Magnesium [Mass/Vol] 2.0 mg/dL 1.6 - 2 .6 mg/dL [facility] No Panel Informationon 08-09 [facility] Phosphoruson 08-09-2022 Phosphate [Mass/Vol] 3.0 mg/dL 2.5 - 4 .5 mg/dL [facility] Protein, urine, randomon Protein (U) [Mass/Vol] 50 mg/dL [place] N [facility] Comment on above: No normal range esta blished. [facility] Basic Metab w/rfx MGon 07-25 Anion gap [Moles/Vol] 9 mmol/L Normal 9-17 [facility] Comment on above: Performed By: #### P T, GLYHGB, CDP #### [employer] [address] [place], [place] [id number] Operator Receptionist: Vincent Sy MD Calcium [Mass/Vol] 10.0 mg/dL Normal 8.6-10.4 [facility] Comment on above: Performed By: #### P T, GLYHGB, CDP #### [employer] [address] [place], [place] [phone] Operator Receptionist: Vincent Sy MD Chloride [Moles/Vol] 110 mmol/L High 98-107 [facility] Comment on above: Performed By: #### P T, GLYHGB, CDP #### [employer] [address] [place] [address] [phone] Operator Receptionist: Vincent Sy MD CO2 [Moles/Vol] 17 mmol/L Low 20-31 [facility] Comment on above: Performed By: #### P T, GLYHGB, CDP #### [employer] [address] [place] [address] Operator Receptionist: Vincent Sy MD Creatinine [Mass/Vol] 2.05 mg/dL High 0.70-1.20 [facility] Comment on above: Performed By: #### P T, GLYHGB, CDP #### [address] [address] Operator Receptionist: Vincent Sy MD GFR/1.73 sq M.predicted among non-blacks MDRD (S/P/Bld) [Vol rate/Area] 42 mL/min/{1.73_m2} Low >60 [facility] Comment on above: Result Comment: These results are not intended for use in patients <18 years of age. eGFR results are calculated without a race factor using the 2020 CKD-EPI equation. Careful clinical correlation is recommended, particularly when comparing to results calculated using previous equations. The CKD-EPI equation is less accurate in patients with extremes of muscle mass, extra-renal metabolism of creatine, excessive creatine ingestion, or following therapy that affects renal tubular secretion. Performed By: #### P T, GLYHGB, CDP #### [facility] [address] [place] [address] Operator Receptionist: Vincent Sy MD Glucose [Mass/Vol] 122 mg/dL High 70-99 [facility] Comment on above: Performed By: #### P T, GLYHGB, CDP #### [facility] [address] [place] [address] Operator Receptionist: Vincent Sy MD Potassium [Moles/Vol] 5.8 mmol/L High 3.7-5.3 [facility] Comment on above: Performed By: #### P T, GLYHGB, CDP #### [facility] [address] [place] [address] Operator Receptionist: Vincent Sy MD Sodium [Moles/Vol] 136 mmol/L Normal 135-144 [facility] Comment on above: Performed By: #### P T, GLYHGB, CDP #### [facility] [address] [place] [address] Operator Receptionist: Vincent Sy MD Urea nitrogen [Mass/Vol] 37 mg/dL High 6-20 [facility] Comment on above: Performed By: #### P T, GLYHGB, CDP #### [facility] [address] [place] [address] Operator Receptionist: Vincent Sy MD Platelet Counton 07-25-2022 Platelets (Bld) [#/Vol] 267 10*3/uL Normal 138-453 [facility] Comment on above: Performed By: #### P LT #### [facility] [address] [place] [address] Operator Receptionist: Vincent Sy MD Albuminon 07-07-2022 Albumin [Mass/Vol] 4.2 g/dL 3.5 - 5.2 g/dL [employer] Basic Metabolic Panelon 05 Anion gap [Moles/Vol] 12 mmol/L 9 - 17 mmol/L [facility] Calcium [Mass/Vol] 11.3 mg/dL High 8.6 - 10. 4 mg/dL [facility] Chloride [Moles/Vol] 107 mmol/L 98 - 10 7 mmol/L [facility] CO2 [Moles/Vol] 19 mmol/L Low 20 - 31 mmol/L [facility] Creatinine [Mass/Vol] 2.34 mg/dL High 0.70 - 1.20 mg/dL [facility] GFR/1.73 sq M.predicted MDRD (S/P/Bld) [Vol rate/Area] 36 mL/min/{1.73_m2} Low - PINF [facility] Comment on above: These results are not intended for use in patients <18 years of age. eGFR results are calculated without a race factor using the 2020 CKD-EPI equation. Careful clinical correlation is recommended, particularly when comparing to results calculated using previous equations. The CKD-EPI equation is less accurate in patients with extremes of muscle mass, extra-renal metabolism of creatine, excessive creatine ingestion, or following therapy that affects renal tubular secretion. Glucose [Mass/Vol] 106 mg/dL High 70 - 99 mg/dL [facility] Interpretation and review of laboratory results Abnormal [facility] Potassium [Moles/Vol] 5.4 mmol/L High 3.7 - 5.3 mmol/L [facility] Sodium [Moles/Vol] 138 mmol/L 135 - 144 mmol/L [facility] Urea nitrogen [Mass/Vol] 42 mg/dL High 6 - 20 mg/dL [facility] Urea nitrogen/Creatinine (Bld) [Mass ratio] 18 9 - 20 [facility] CBCon 07-07-2022 Hematocrit (Bld) [Volume fraction] 39.5 % Low 40.7 - 50.3 % [facility] Hemoglobin (Bld) [Mass/Vol] 12.2 g/dL Low 13.0 - 17.0 g/dL [facility] Interpretation and review of laboratory results Abnormal [facility] MCH (RBC) [Entitic mass] 27.1 pg 25.2 - 33.5 pg [facility] MCHC (RBC) [Mass/Vol] 30.9 g/dL 28.4 - 34.8 g/dL [facility] MCV (RBC) [Entitic vol] 87.8 fL 82.6 - 102.9 fL [facility] NRBC Automated 0.0 0.0 per 100 WBC [facility] Platelet distribution width (Bld) [Ratio] 14.1 % 11.8 - 14.4 % [facility] Platelet mean volume (Bld) [Entitic vol] 9.7 fL 8.1 - 13.5 fL [facility] Platelets (Bld) [#/Vol] 425 10*3/uL [facility] RBC (Bld) [#/Vol] 4.50 10*6/uL 4.21 - 5.7 7 m/uL [facility] WBC (Bld) [#/Vol] 6.9 10*3/uL [facility] Calcium, Ionizedon Calcium.ionized (Bld) [Moles/Vol] 1.51 mmol/L High 1.13 - 1.33 mmol/L [facility] Interpretation and review of laboratory results Abnormal [facility] [employer] No Panel Informationon 07-07 [facility] PTH, [place] 07-07-2022 Interpretation and review of laboratory results Abnormal [facility] Parathyrin.intact [Mass/Vol] 248.7 pg/mL High 14.0 - 72.0 pg/mL [facility] [employer] Comment on above: SAMPLES FROM PATIENT S ROUTINELY RECEIVING HIGH DOSE BIOTIN THERAPY MAY SHOW FALSELY DEPRESSED RESULTS. ADDITIONAL INFORMATION MAY BE REQUIRED FOR DIAGNOSIS. [facility] [employer] Phosphoruson 07-07-2022 Phosphate [Mass/Vol] 3.1 mg/dL 2.5 - 4 .5 mg/dL [facility] Protein / creatinine ratio, urineon 07-07-2022 Creatinine, Ur 89.3 mg/dL 39.0 - 259.0 mg/dL [facility] Interpretation and review of laboratory results Abnormal [facility] [employer] Protein (U) [Mass/Vol] 28 mg/dL [facility] Comment on above: No normal range esta blished. Urine Total Protein Creatinine Ratio 0.31 High 0.00 - 0.20 [facility] [employer] Basic Metabolic Panelon Anion gap [Moles/Vol] 12 mmol/L 9 - 17 mmol/L [facility] Calcium [Mass/Vol] 9.6 mg/dL 8.6 - 10. 4 mg/dL [facility] Chloride [Moles/Vol] 99 mmol/L 98 - 10 7 mmol/L [facility] [employer] CO2 [Moles/Vol] 21 mmol/L 20 - 31 mmol/L [facility] [employer] Creatinine [Mass/Vol] 2.01 mg/dL High 0.70 - 1.20 mg/dL [facility] [employer] GFR/1.73 sq M.predicted MDRD (S/P/Bld) [Vol rate/Area] 43 mL/min/{1.73_m2} Low - PINF [facility] [employer] Glucose [Mass/Vol] 144 mg/dL High 70 - 99 mg/dL [facility] Interpretation and review of laboratory results Abnormal [facility] Potassium [Moles/Vol] 4.3 mmol/L 3.7 - 5.3 mmol/L [facility] Sodium [Moles/Vol] 132 mmol/L Low 135 - 144 mmol/L [facility] Urea nitrogen [Mass/Vol] 27 mg/dL High 6 - 20 mg/dL [facility] Basic Metabolic Profon 06-06 Anion gap [Moles/Vol] 12 mmol/L Normal 9-17 [facility] Comment on above: Performed By: #### P T, GLYHGB, CDP #### [facility] [place] [address] [place] [address] Operator Receptionist: Vincent Sy MD Calcium [Mass/Vol] 9.6 mg/dL Normal 8.6-10.4 [facility] Comment on above: Performed By: #### P T, GLYHGB, CDP #### [facility] [place] [address] [place] [address] Operator Receptionist: Vincent Sy MD Chloride [Moles/Vol] 99 mmol/L Normal 98-107 [facility] Comment on above: Performed By: #### P T, GLYHGB, CDP #### [facility] [place] [address] [place] [address] Operator Receptionist: Vincent Sy MD CO2 [Moles/Vol] 21 mmol/L Normal 20-31 [facility] Comment on above: Performed By: #### P T, GLYHGB, CDP #### [employer] [address] [place] [address] Operator Receptionist: Vincent Sy MD Creatinine [Mass/Vol] 2.01 mg/dL High 0.70-1.20 [facility] Comment on above: Performed By: #### P T, GLYHGB, CDP #### [employer] [address] [place] [address] [phone] Operator Receptionist: Vincent Sy MD GFR/1.73 sq M.predicted among non-blacks MDRD (S/P/Bld) [Vol rate/Area] 43 mL/min/{1.73_m2} Low >60 [facility] Comment on above: Result Comment: These results are not intended for use in patients <18 years of age. eGFR results are calculated without a race factor using the 2020 CKD-EPI equation. Careful clinical correlation is recommended, particularly when comparing to results calculated using previous equations. The CKD-EPI equation is less accurate in patients with extremes of muscle mass, extra-renal metabolism of creatine, excessive creatine ingestion, or following therapy that affects renal tubular secretion. Performed By: #### P T, GLYHGB, CDP #### [facility] [address] [address] Operator Receptionist: Vincent Sy MD Glucose [Mass/Vol] 144 mg/dL High 70-99 [facility] Comment on above: Performed By: #### P T, GLYHGB, CDP #### [facility] [place] [address] [place] [address] Operator Receptionist: Vincent Sy MD Potassium [Moles/Vol] 4.3 mmol/L Normal 3.7-5.3 [facility] Comment on above: Performed By: #### P T, GLYHGB, CDP #### [facility] [address] [place] [address] Operator Receptionist: Vincent Sy MD Sodium [Moles/Vol] 132 mmol/L Low 135-144 [facility] Comment on above: Performed By: #### P T, GLYHGB, CDP #### [facility] [address] [place] [address] Operator Receptionist: Vicnent Sy MD Urea nitrogen [Mass/Vol] 27 mg/dL High 6-20 [facility] Comment on above: Performed By: #### P T, GLYHGB, CDP #### [facility] [address] [place], [place] [address], [place] [address] Operator Receptionist: Vincent Sy MD CBCon 06-06-2022 Erythrocyte distribution width (RBC) [Ratio] 13.2 % Normal 11.8-14.4 [facility] Comment on above: Performed By: #### P T, GLYHGB, CDP #### [address] [address] Operator Receptionist: Vincent Sy MD Hematocrit (Bld) [Volume fraction] 30.3 % Low 40.7-50.3 [facility] Comment on above: Performed By: #### P T, GLYHGB, CDP #### [address] [address] Operator Receptionist: Vincent Sy MD Hemoglobin (Bld) [Mass/Vol] 10.1 g/dL Low 13.0-17.0 [facility] Comment on above: Performed By: #### P T, GLYHGB, CDP #### [address] [address] Operator Receptionist: Vincent Sy MD MCH (RBC) [Entitic mass] 29.8 pg Normal 25.2-33.5 [facility] Comment on above: Performed By: #### P T, GLYHGB, CDP #### [address] [address] Operator Receptionist: Vincent Sy MD MCHC (RBC) [Mass/Vol] 33.3 g/dL Normal 28.4-34.8 [facility] Comment on above: Performed By: #### P T, GLYHGB, CDP #### [address] [address] Operator Receptionist: Vincent Sy MD MCV (RBC) [Entitic vol] 89.4 fL Normal 82.6-102.9 [facility] Comment on above: Performed By: #### P T, GLYHGB, CDP #### [facility] [address] [place] [address] Operator Receptionist: Vincent Sy MD NRBC Automated 0.0 per 100 WBC Normal 0.0 [facility] Comment on above: Performed By: #### P T, GLYHGB, CDP #### [facility] [address] [place] [address] Operator Receptionist: Vincent Sy MD Platelet mean volume (Bld) [Entitic vol] 10.0 fL Normal 8.1-13.5 [facility] Comment on above: Performed By: #### P T, GLYHGB, CDP #### [facility] [address] [place] [address] Operator Receptionist: Vincent Sy MD Platelets (Bld) [#/Vol] 243 10*3/uL Normal 138-453 [facility] Comment on above: Performed By: #### P T, GLYHGB, CDP #### [facility] [address] [place] [address] Operator Receptionist: Vincent Sy MD RBC (Bld) [#/Vol] 3.39 10*6/uL Low 4.21-5.77 [facility] Comment on above: Performed By: #### P T, GLYHGB, CDP #### [facility] [address] [place] [address] Operator Receptionist: Vincent Sy MD WBC (Bld) [#/Vol] 11.3 10*3/uL Normal 3.5-11.3 [facility] Comment on above: Performed By: #### P T, GLYHGB, CDP #### [facility] [address] [place] [address] Operator Receptionist: Vincent Sy MD Hematocrit (Bld) [Volume fraction] 30.3 % Low 40.7 - 50.3 % [facility] Hemoglobin (Bld) [Mass/Vol] 10.1 g/dL Low 13.0 - 17.0 g/dL [facility] Interpretation and review of laboratory results Abnormal [facility] MCH (RBC) [Entitic mass] 29.8 pg 25.2 - 33.5 pg [facility] MCHC (RBC) [Mass/Vol] 33.3 g/dL 28.4 - 34.8 g/dL [facility] MCV (RBC) [Entitic vol] 89.4 fL 82.6 - 102.9 fL [facility] NRBC Automated 0.0 0.0 per 100 WBC [facility] Platelet distribution width (Bld) [Ratio] 13.2 % 11.8 - 14.4 % [facility] Platelet mean volume (Bld) [Entitic vol] 10.0 fL 8.1 - 13.5 fL [facility] Platelets (Bld) [#/Vol] 243 10*3/uL [facility] RBC (Bld) [#/Vol] 3.39 10*6/uL Low 4.21 - 5.7 7 m/uL [facility] WBC (Bld) [#/Vol] 11.3 10*3/uL [facility] Calcium, Ionicon 06-06-2022 Calcium [Moles/Vol] 1.32 mmol/L Normal 1.13-1.33 [facility] Comment on above: Performed By: #### P T, RAFALB, CDP #### [employer] [address] [place] [address] Operator Receptionist: Vincent Sy MD Calcium, Ionizedon 3 Calcium.ionized (Bld) [Moles/Vol] 1.32 mmol/L 1.13 - 1.33 mmol/L [facility] Magnesiumon 06-06-2022 Magnesium [Mass/Vol] 2.1 mg/dL Normal 1.6-2.6 [facility] Comment on above: Performed By: #### P T, GLYHGB, CDP #### [employer] [address] [place] [address] Operator Receptionist: Vincent Sy MD Magnesium [Mass/Vol] 2.1 mg/dL 1.6 - 2 .6 mg/dL [facility] No Panel Informationon 06-06 [facility] POC Glucose Fingerstickon Glucose [Mass/Vol] 175 mg/dL High 75 - 110 mg/dL [facility] Interpretation and review of laboratory results Abnormal [facility] Glucose [Mass/Vol] 133 mg/dL High 75 - 110 mg/dL [facility] Interpretation and review of laboratory results Abnormal [facility] XR CHEST PORTABLEon 06-07-19 XR CHEST PORTABLE EXAMINATION: ONE X-RAY VIEW OF THE CHEST 06/06/2022 5:35 am COMPARISON: 06/05/2022 HISTORY: ORDERING SYSTEM PROVIDED HISTORY: Post op open heart surgery TECHNOLOGIST PROVIDED HISTORY: Post op open heart surgery FINDINGS: Median sternotomy wires. Cardiomegaly is stable. Mild right basilar atelectasis is stable. No pneumothorax. No overt pulmonary edema. Cardiomediastinal silhouette and bony thorax are unchanged. IMPRESSION: Cardiomegaly with stable mild right basilar atelectasis. No new acute process. Interpreted by: Cholo Restrepo MD Signed by: Cholo Restrepo MD 06/06/22 Final result Normal [facility] XR CHEST PORTABLE EXAMINATION: ONE XRAY VIEW OF THE CHEST 06/05/2022 5:53 pm COMPARISON: 06/05/2022. HISTORY: ORDERING SYSTEM PROVIDED HISTORY: ct removal TECHNOLOGIST PROVIDED HISTORY: ct removal FINDINGS: There are low lung volumes. The heart size is enlarged but unchanged. The pulmonary vasculature is within normal limits. No acute infiltrates are seen. No pneumothoraces are noted. There has been removal of the left chest tube. The central venous line also has been removed. IMPRESSION: 1. Low lung volumes with cardiomegaly. Interpreted by: David Gabriel MD Signed by: David Gabriel MD 06/05/22 Final result Normal [facility] Basic Metabolic Panelon 04-0 2-2023 Anion gap [Moles/Vol] 8 mmol/L Low 9 - 17 mmol/L [facility] Calcium [Mass/Vol] 9.1 mg/dL 8.6 - 10. 4 mg/dL [facility] Chloride [Moles/Vol] 102 mmol/L 98 - 10 7 mmol/L [facility] CO2 [Moles/Vol] 22 mmol/L 20 - 31 mmol/L [facility] Creatinine [Mass/Vol] 2.28 mg/dL High 0.70 - 1.20 mg/dL [facility] GFR/1.73 sq M.predicted MDRD (S/P/Bld) [Vol rate/Area] 37 mL/min/{1.73_m2} Low - PINF [facility] Glucose [Mass/Vol] 150 mg/dL High 70 - 99 mg/dL [facility] Interpretation and review of laboratory results Abnormal [facility] Potassium [Moles/Vol] 4.8 mmol/L 3.7 - 5.3 mmol/L [facility] Sodium [Moles/Vol] 132 mmol/L Low 135 - 144 mmol/L [facility] Urea nitrogen [Mass/Vol] 23 mg/dL High 6 - 20 mg/dL [facility] Basic Metabolic Profon 06-05 Anion gap [Moles/Vol] 8 mmol/L Low 9-17 [facility] Comment on above: Performed By: #### P LT #### [employer] [address] [place], [place] [phone] Operator Receptionist: Vincent Sy MD Calcium [Mass/Vol] 9.1 mg/dL Normal 8.6-10.4 [facility] Comment on above: Performed By: #### P LT #### [employer] [address] [place], [place] [phone] Operator Receptionist: Vincent Sy MD Chloride [Moles/Vol] 102 mmol/L Normal 98-107 [facility] Comment on above: Performed By: #### P LT #### [address] [address] Operator Receptionist: Vincent yS MD CO2 [Moles/Vol] 22 mmol/L Normal 20-31 [facility] Comment on above: Performed By: #### P LT #### [address] [address] Operator Receptionist: Vincent Sy MD Creatinine [Mass/Vol] 2.28 mg/dL High 0.70-1.20 [facility] Comment on above: Performed By: #### P LT #### [address] [address] Operator Receptionist: Vincent Sy MD GFR/1.73 sq M.predicted among non-blacks MDRD (S/P/Bld) [Vol rate/Area] 37 mL/min/{1.73_m2} Low >60 [facility] Comment on above: Result Comment: These results are not intended for use in patients <18 years of age. eGFR results are calculated without a race factor using the 2020 CKD-EPI equation. Careful clinical correlation is recommended, particularly when comparing to results calculated using previous equations. The CKD-EPI equation is less accurate in patients with extremes of muscle mass, extra-renal metabolism of creatine, excessive creatine ingestion, or following therapy that affects renal tubular secretion. Performed By: #### P LT #### [address] [address] Operator Receptionist: Vincent Sy MD Glucose [Mass/Vol] 150 mg/dL High 70-99 [facility] Comment on above: Performed By: #### P LT #### [address] [address] Operator Receptionist: Vincent Sy MD Potassium [Moles/Vol] 4.8 mmol/L Normal 3.7-5.3 [facility] Comment on above: Performed By: #### P LT #### [address] [address] Operator Receptionist: Vincent Sy MD Sodium [Moles/Vol] 132 mmol/L Low 135-144 [facility] Comment on above: Performed By: #### P LT #### [address] [address] Operator Receptionist: Vincent Sy MD Urea nitrogen [Mass/Vol] 23 mg/dL High 6-20 [facility] Comment on above: Performed By: #### P LT #### [address] [address] Operator Receptionist: Vincent Sy MD CBCon 06-05-2022 Erythrocyte distribution width (RBC) [Ratio] 13.2 % Normal 11.8-14.4 [facility] Comment on above: Performed By: #### P LT #### [address] [address] Operator Receptionist: Vincent Sy MD Hematocrit (Bld) [Volume fraction] 32.3 % Low 40.7-50.3 [facility] Comment on above: Performed By: #### P LT #### [address] [address] Operator Receptionist: Vincent Sy MD Hemoglobin (Bld) [Mass/Vol] 10.3 g/dL Low 13.0-17.0 [facility] Comment on above: Performed By: #### P LT #### [address] [address] Operator Receptionist: Vincent Sy MD MCH (RBC) [Entitic mass] 29.5 pg Normal 25.2-33.5 [facility] Comment on above: Performed By: #### P LT #### [address] [address] Operator Receptionist: Vincent Sy MD MCHC (RBC) [Mass/Vol] 31.9 g/dL Normal 28.4-34.8 [facility] Comment on above: Performed By: #### P LT #### [address] [address] Operator Receptionist: Vincent Sy MD MCV (RBC) [Entitic vol] 92.6 fL Normal 82.6-102.9 [facility] Comment on above: Performed By: #### P LT #### [address] [address] Operator Receptionist: Vincent Sy MD NRBC Automated 0.0 per 100 WBC Normal 0.0 [facility] Comment on above: Performed By: #### P LT #### [address] [address] Operator Receptionist: Vincent Sy MD Platelet mean volume (Bld) [Entitic vol] 10.7 fL Normal 8.1-13.5 [facility] Comment on above: Performed By: #### P LT #### [address] [address] Operator Receptionist: Vincent Sy MD Platelets (Bld) [#/Vol] 179 10*3/uL Normal 138-453 [facility] Comment on above: Performed By: #### P LT #### [place] [address] Operator Receptionist: Vincent Sy MD RBC (Bld) [#/Vol] 3.49 10*6/uL Low 4.21-5.77 [facility] Comment on above: Performed By: #### P LT #### [address] [address] Operator Receptionist: Vincent Sy MD WBC (Bld) [#/Vol] 11.8 10*3/uL High 3.5-11.3 [facility] Comment on above: Performed By: #### P LT #### [employer] [address] [place] [address] Operator Receptionist: Vincent Sy MD Hematocrit (Bld) [Volume fraction] 32.3 % Low 40.7 - 50.3 % [facility] Hemoglobin (Bld) [Mass/Vol] 10.3 g/dL Low 13.0 - 17.0 g/dL [facility] Interpretation and review of laboratory results Abnormal [facility] MCH (RBC) [Entitic mass] 29.5 pg 25.2 - 33.5 pg [facility] MCHC (RBC) [Mass/Vol] 31.9 g/dL 28.4 - 34.8 g/dL [facility] MCV (RBC) [Entitic vol] 92.6 fL 82.6 - 102.9 fL [facility] NRBC Automated 0.0 0.0 per 100 WBC [facility] Platelet distribution width (Bld) [Ratio] 13.2 % 11.8 - 14.4 % [facility] Platelet mean volume (Bld) [Entitic vol] 10.7 fL 8.1 - 13.5 fL [facility] Platelets (Bld) [#/Vol] 179 10*3/uL [facility] RBC (Bld) [#/Vol] 3.49 10*6/uL Low 4.21 - 5.7 7 m/uL [facility] WBC (Bld) [#/Vol] 11.8 10*3/uL High [facility] Calcium, Ionicon 06-05-2022 Calcium [Moles/Vol] 1.25 mmol/L Normal 1.13-1.33 [facility] Comment on above: Performed By: #### P LT #### [employer] [address] [place] [address] Operator Receptionist: Vincent Sy MD Calcium, Ionizedon Calcium.ionized (Bld) [Moles/Vol] 1.25 mmol/L 1.13 - 1.33 mmol/L [facility] Magnesiumon 06-05-2022 Magnesium [Mass/Vol] 2.3 mg/dL Normal 1.6-2.6 [facility] Comment on above: Performed By: #### P LT #### [facility] [address] [place], [place] [id number] Operator Receptionist: Vincent Sy MD Magnesium [Mass/Vol] 2.3 mg/dL 1.6 - 2 .6 mg/dL [facility] [employer] No Panel Informationon 06-05 [facility] [employer] OPERATIVE REPORTon OPERATIVE REPORT [facility] [address] [place] [address] OPERATIVE REPORT PATIENT NAME: ELIAS WALKER : 1985 MED REC NO: [id number] ROOM: 2022 ACCOUNT NO: [id number] ADMIT DATE: 05/23/2022 PROVIDER: Ariel Purdy MD DATE OF PROCEDURE: 06/02/2022 PRIMARY ATTENDING SURGEON: Ariel Purdy MD OTHER ASSISTANTS: Included Andrey Hall CSA PREOPERATIVE DIAGNOSES: Severe multivessel coronary artery disease, status post non-STEMI, stage III CKD renal failure, brittle type 1 diabetes, morbid obesity, CHF, volume overload. POSTOPERATIVE DIAGNOSES: Severe multivessel coronary artery disease, status post non-STEMI, stage III CKD renal failure, brittle type 1 diabetes, morbid obesity, CHF, volume overload. PROCEDURES: Median sternotomy, aorto-right atrial cardiopulmonary bypass, CESAR, endoscopic vein harvest, CABG x2 with reverse saphenous vein graft 1 to LAD and reverse saphenous vein graft 2 to large OM, failed catheterization of both left and right radial artery due to severe vasculopathy and peripheral arterial disease, small calcified and unusable left internal mammary artery, which dissected upon being taken down resulting in reverse saphenous vein grafts. SURGEON: Ariel Purdy MD COMPLICATIONS: None. CONDITION: Stable. DISPOSITION: To CVICU. ESTIMATED BLOOD LOSS: Not applicable. ANESTHESIA: General endotracheal. CARDIOPULMONARY BYPASS TIME: 57 minutes. CROSS-CLAMP TIME: 41 minutes. LOWEST TEMPERATURE: 35 degrees. INDICATIONS FOR SURGERY: The patient is only a 36-year-old man, who suffers from brittle type 1 diabetes as well as CKD III renal failure who has all of the vasculopathy and sequelae, which are attended with these diagnoses. Secondary to all these, he has been found to have severe multivessel coronary artery disease with 80-90% lesion to most of the major myocardial vessels. Radial artery use was prohibited in him given his probable advancement to stage IV renal failure, requiring dialysis in the near future. In consultation with the renal doctors, they felt that he would need AV fistulas in both in the future and that radial artery should be avoided. Also his vasculopathy made his artery not desirable for use. Despite this, his vascular mapping did reveal what appeared to be good size reverse saphenous vein graft and his distal target were re-getable. I therefore took him to surgery with the consent of he and his family on 06/02/2022. FINDINGS AT SURGERY: Attempts to perform radial artery cannulation of his bilateral radial arteries were unsuccessful and ultimately we have to manage it with the femoral arterial catheter. His arteries were poor in quality and he is a vasculopath by definition. It is not surprising that upon median sternotomy and attempted take down of his left internal mammary artery that I found it to be small and calcified and it in fact as expected upon my attempt to take it down. Fortunately he had good reverse saphenous vein graft and we thus crafted a reverse saphenous vein graft to LAD and a reverse saphenous vein graft to OM. We did not have enough vein to accomplish the RPDA anastomosis; however, the RPDA was not a very good target anyhow and mid PRDA lesion is easily stentable. I therefore will request a hybrid type revascularization with a mid RCA stent in the near future. His ejection fraction was preserved and the operation was a success. SURGERY IN DETAIL: The patient was identified in his bed in the CVICU, was transported to the operating room where he was induced for general endotracheal anesthesia without difficulty. This included an uneventful endotracheal intubation with appropriate placement of lines and access for cardiac surgery. He was prepped and draped in a normal sterile fashion and a time-out was performed and documented. The operation began with a simultaneous performance of an endoscopic vein harvest, which was performed as I performed the median sternotomy and attempted to take down his left internal mammary artery. Unfortunately due to his severe vasculopathy, not only we will be not able to get either of his radial arteries, but not surprising the left internal mammary artery was small, calcified, and dissected upon my attempt to take it down. I was not surprised by this overall degree of vascular disease burden and I thus reasoned that all vein graft operation would be our bail out maneuver. Fortunately he did have good reverse saphenous vein graft and it allowed the CABG x2 as described above. I did not have the vein graft length to be able to perform an RPDA anastomosis, but also the RPDA was not an excellent target. I reviewed the angiography and assessed that his mid RCA is easily stentable anyhow and that this can be treated in hybrid fashion in the postoperative period. Satisfied with this, the operation was concluded with an excel (more content not included)... Normal [facility] POC Glucose Fingerstickon Glucose [Mass/Vol] 226 mg/dL High 75 - 110 mg/dL [facility] Interpretation and review of laboratory results Abnormal [facility] Glucose [Mass/Vol] 213 mg/dL High 75 - 110 mg/dL [facility] Interpretation and review of laboratory results Abnormal [facility] Glucose [Mass/Vol] 218 mg/dL High 75 - 110 mg/dL [facility] Interpretation and review of laboratory results Abnormal [facility] XR CHEST PORTABLEon 06-06-19 23 [facility] RIS CONSOLIDATED [facility] RIS CONSOLIDATED [facility] Work Phone: Radiology Study observation (narrative) [facility] Work Phone: XR CHEST PORTABLE EXAMINATION: ONE XRAY VIEW OF THE CHEST 06/05/2022 5:01 am COMPARISON: 06/04/2022 HISTORY: ORDERING SYSTEM PROVIDED HISTORY: Post op open heart surgery TECHNOLOGIST PROVIDED HISTORY: Post op open heart surgery Reason for Exam: [facility] FINDINGS: Support tubes and lines appear unchanged. Stable moderate cardiomegaly. Minor pulmonary vascular congestion and bilateral linear atelectasis. Lung volumes are quite low. The lungs appear otherwise clear. Surrounding osseous and soft tissue structures are noted for prior median sternotomy. IMPRESSION: No significant interval change since yesterday's exam given differences in patient positioning and radiographic technique. Interpreted by: Akira Augustin MD Signed by: Akira Augustin MD 06/05/22 Final result Normal [facility]PN RIS CONSOLIDATED [facility] RIS CONSOLIDATED [employer] Work Phone: Radiology Study observation (narrative) [facility]ORM[facility] [employer] Work Phone: XR CHEST PORTABLEOrdered By: David Gabriel on 06-05-2022 [employer] Work Phone: XR CHEST PORTABLEOrdered By: Akira Augustin on 06-05-2022 [employer] Work Phone: Basic Metabolic Panelon 04- Anion gap [Moles/Vol] 11 mmol/L 9 - 17 mmol/L [facility] Calcium [Mass/Vol] 9.0 mg/dL 8.6 - 10. 4 mg/dL [facility] Chloride [Moles/Vol] 102 mmol/L 98 - 10 7 mmol/L [facility] CO2 [Moles/Vol] 21 mmol/L 20 - 31 mmol/L [facility] Creatinine [Mass/Vol] 2.35 mg/dL High 0.70 - 1.20 mg/dL [facility] GFR/1.73 sq M.predicted MDRD (S/P/Bld) [Vol rate/Area] 36 mL/min/{1.73_m2} Low - PINF [facility] Glucose [Mass/Vol] 192 mg/dL High 70 - 99 mg/dL [facility] Interpretation and review of laboratory results Abnormal [facility] Potassium [Moles/Vol] 4.9 mmol/L 3.7 - 5.3 mmol/L [facility] Sodium [Moles/Vol] 134 mmol/L Low 135 - 144 mmol/L [employer] [facility] Urea nitrogen [Mass/Vol] 24 mg/dL High 6 - 20 mg/dL [facility] Basic Metabolic Profon 06-04 Anion gap [Moles/Vol] 11 mmol/L Normal 9-17 [facility] Comment on above: Performed By: #### P T, GLYHGB, CDP #### [facility] [address] [place] [address] Operator Receptionist: Vincent Sy MD Calcium [Mass/Vol] 9.0 mg/dL Normal 8.6-10.4 [facility] Comment on above: Performed By: #### P T, GLYHGB, CDP #### [facility] [address] [place] [address] Operator Receptionist: Vincent Sy MD Chloride [Moles/Vol] 102 mmol/L Normal 98-107 [facility] Comment on above: Performed By: #### P T, GLYHGB, CDP #### [facility] [address] [place] [address] Operator Receptionist: Vincent Sy MD CO2 [Moles/Vol] 21 mmol/L Normal 20-31 [facility] Comment on above: Performed By: #### P T, GLYHGB, CDP #### [facility] [address] [place] [address] Operator Receptionist: Vincent Sy MD Creatinine [Mass/Vol] 2.35 mg/dL High 0.70-1.20 [facility] Comment on above: Performed By: #### P T, GLYHGB, CDP #### [facility] [address] [place] [address] Operator Receptionist: Vincent Sy MD GFR/1.73 sq M.predicted among non-blacks MDRD (S/P/Bld) [Vol rate/Area] 36 mL/min/{1.73_m2} Low >60 [facility] Comment on above: Result Comment: These results are not intended for use in patients <18 years of age. eGFR results are calculated without a race factor using the 2020 CKD-EPI equation. Careful clinical correlation is recommended, particularly when comparing to results calculated using previous equations. The CKD-EPI equation is less accurate in patients with extremes of muscle mass, extra-renal metabolism of creatine, excessive creatine ingestion, or following therapy that affects renal tubular secretion. Performed By: #### P T, GLYHGB, CDP #### [facility] [address] [place] [address] Operator Receptionist: Vincent Sy MD Glucose [Mass/Vol] 192 mg/dL High 70-99 [facility] Comment on above: Performed By: #### P T, GLYHGB, CDP #### [facility] [address] [place] [address] Operator Receptionist: Vincent Sy MD Potassium [Moles/Vol] 4.9 mmol/L Normal 3.7-5.3 [facility] Comment on above: Performed By: #### P T, GLYHGB, CDP #### [facility] [address] [place] [address] Operator Receptionist: Vincent Sy MD Sodium [Moles/Vol] 134 mmol/L Low 135-144 [facility] Comment on above: Performed By: #### P T, GLYHGB, CDP #### [facility] [address] [place] [address] Operator Receptionist: Vincent Sy MD Urea nitrogen [Mass/Vol] 24 mg/dL High 6-20 [facility] Comment on above: Performed By: #### P T, GLYHGB, CDP #### [facility] [address] [place] [address] Operator Receptionist: Vincent Sy MD CBCon 06-04-2022 Erythrocyte distribution width (RBC) [Ratio] 13.2 % Normal 11.8-14.4 [facility] Comment on above: Performed By: #### P T, GLYHGB, CDP #### [facility] [address] [place] [address] 140[address] Operator Receptionist: Vincent Sy MD Hematocrit (Bld) [Volume fraction] 36.6 % Low 40.7-50.3 [facility] Comment on above: Performed By: #### P T, GLYHGB, CDP #### [address] [address] Operator Receptionist: Vincent Sy MD Hemoglobin (Bld) [Mass/Vol] 11.9 g/dL Low 13.0-17.0 [facility] Comment on above: Performed By: #### P T, GLYHGB, CDP #### [address] [address] Operator Receptionist: Vincent Sy MD MCH (RBC) [Entitic mass] 29.8 pg Normal 25.2-33.5 [facility] Comment on above: Performed By: #### P T, GLYHGB, CDP #### [address] [address] Operator Receptionist: Vincent Sy MD MCHC (RBC) [Mass/Vol] 32.5 g/dL Normal 28.4-34.8 [facility] Comment on above: Performed By: #### P T, GLYHGB, CDP #### [address] [address] Operator Receptionist: Vincent Sy MD MCV (RBC) [Entitic vol] 91.7 fL Normal 82.6-102.9 [facility] Comment on above: Performed By: #### P T, GLYHGB, CDP #### [address] [address] Operator Receptionist: Vincent Sy MD NRBC Automated 0.0 per 100 WBC Normal 0.0 [facility] Comment on above: Performed By: #### P T, GLYHGB, CDP #### [address] [address] Operator Receptionist: Vincent Sy MD Platelet mean volume (Bld) [Entitic vol] 10.4 fL Normal 8.1-13.5 [facility] Comment on above: Performed By: #### P T, GLYHGB, CDP #### [employer] [facility] [place] [address] Operator Receptionist: Vincent Sy MD Platelets (Bld) [#/Vol] 196 10*3/uL Normal 138-453 [facility] Comment on above: Performed By: #### P T, GLYHGB, CDP #### [facility] [place] [address] [place] [address] Operator Receptionist: Vincent Sy MD RBC (Bld) [#/Vol] 3.99 10*6/uL Low 4.21-5.77 [facility] Comment on above: Performed By: #### P T, GLYHGB, CDP #### [facility] [place] [address] [place] [address] Operator Receptionist: Vincent Sy MD WBC (Bld) [#/Vol] 15.0 10*3/uL High 3.5-11.3 [facility] Comment on above: Performed By: #### P T GLYHGB, CDP #### [facility] [address] [place] [address] Operator Receptionist: Vincent Sy MD Hematocrit (Bld) [Volume fraction] 36.6 % Low 40.7 - 50.3 % [facility] Hemoglobin (Bld) [Mass/Vol] 11.9 g/dL Low 13.0 - 17.0 g/dL [facility] Interpretation and review of laboratory results Abnormal [facility] [employer] MCH (RBC) [Entitic mass] 29.8 pg 25.2 - 33.5 pg [facility] MCHC (RBC) [Mass/Vol] 32.5 g/dL 28.4 - 34.8 g/dL [facility] MCV (RBC) [Entitic vol] 91.7 fL 82.6 - 102.9 fL [facility] NRBC Automated 0.0 0.0 per 100 WBC [facility] Platelet distribution width (Bld) [Ratio] 13.2 % 11.8 - 14.4 % [facility] Platelet mean volume (Bld) [Entitic vol] 10.4 fL 8.1 - 13.5 fL [facility] Platelets (Bld) [#/Vol] 196 10*3/uL [facility] RBC (Bld) [#/Vol] 3.99 10*6/uL Low 4.21 - 5.7 7 m/uL [facility] WBC (Bld) [#/Vol] 15.0 10*3/uL High [facility] Calcium, [employer] 06-04-2022 Calcium [Moles/Vol] 1.24 mmol/L Normal 1.13-1.33 [facility] Comment on above: Performed By: #### B MP, MG, CBC, PT, PTT #### [employer] [address] [place], [place] [id number] Operator Receptionist: Vincent Sy MD Calcium [Moles/Vol] 1.28 mmol/L Normal 1.13-1.33 [facility] Comment on above: Performed By: #### BRITTANEY Rene, CDP #### [employer] [address] [place], [place] [phone] Operator Receptionist: Vincent Sy MD Calcium, Ionizedon Calcium.ionized (Bld) [Moles/Vol] 1.24 mmol/L 1.13 - 1.33 mmol/L [facility] Calcium.ionized (Bld) [Moles/Vol] 1.28 mmol/L 1.13 - 1.33 mmol/L [facility] Magnesiumon 06-04-2022 Magnesium [Mass/Vol] 2.2 mg/dL Normal 1.6-2.6 [facility] Comment on above: Performed By: #### P TRAFALB, CDP #### [employer] [address] [place], [place] [id number] Operator Receptionist: Vincent Sy MD Magnesium [Mass/Vol] 2.2 mg/dL 1.6 - 2 .6 mg/dL [facility] No Panel Informationon 06-04 [facility] POC Glucose Fingerstickon Glucose [Mass/Vol] 182 mg/dL High 75 - 110 mg/dL [facility] Interpretation and review of laboratory results Abnormal [facility] Glucose [Mass/Vol] 208 mg/dL High 75 - 110 mg/dL [facility] Interpretation and review of laboratory results Abnormal [facility] Glucose [Mass/Vol] 191 mg/dL High 75 - 110 mg/dL [facility] Interpretation and review of laboratory results Abnormal [facility] Glucose [Mass/Vol] 156 mg/dL High 75 - 110 mg/dL [facility] Interpretation and review of laboratory results Abnormal [facility] PTon 06-04-2022 INR Coag (PPP) [Relative time] 1.2 {INR} Normal [facility] Comment on above: Result Comment: Therapeutic Range: Moderate Anticoagulant Intensity: INR = 2.0-3.0 High Anticoagulant Intensity: INR = 2.5-3.5 Performed By: #### P T, BRITTANEY, CDP #### [employer] [address] [place] [address] Operator Receptionist: Vincent Sy MD PT Coag (PPP) [Time] 15.3 s High 11.7-14.9 [facility] Comment on above: Performed By: #### P T, GLYHGB, CDP #### [employer] [address] [place] [address] Operator Receptionist: Vincent Sy MD Protime-INRon 06-04-2022 INR Coag (PPP) [Relative time] 1.2 {INR} [facility] Interpretation and review of laboratory results Abnormal [facility] PT Coag (PPP) [Time] 15.3 s High [facility] Vancomycin Level, Randomon 0 06-04-2022 Vancomycin Rm 17.1 ug/mL [facility] Vancomycin,Randomon 06-05-19 Vancomycin 17.1 ug/mL Normal [facility] Comment on above: Result Comment: High er trough serum vancomycin concentrations of 15-20 ug/mL are recommended for complicated infections such as bacteremia, endocarditis, osteomyelitis, meningitis, and hospital acquired pneumonia. Performed By: #### B MP, MG, CBC, PT, PTT #### [facility] [address] [place] [address] Operator Receptionist: Vincent Sy MD XR CHEST PORTABLEon 06-05-19 XR CHEST PORTABLE EXAMINATION: ONE XRAY VIEW OF THE CHEST 06/04/2022 5:54 am COMPARISON: 03 June 2022 HISTORY: ORDERING SYSTEM PROVIDED HISTORY: Post op open heart surgery TECHNOLOGIST PROVIDED HISTORY: Post op open heart surgery FINDINGS: AP portable view of the chest time stamped at 501 hours demonstrates overlying cardiac monitoring electrodes. Right IJ catheter terminates in the distal superior vena cava. Left-sided chest tube remains. Stable cardiomegaly. No significant change in mild vascular congestion and atelectasis. No significant effusions. Prior median sternotomy. IMPRESSION: Little change from prior study. Support devices as above. Stable cardiomegaly, mild vascular congestion and atelectasis. Interpreted by: Eliana Crisostomo MD Signed by: Eliana Crisostomo MD 06/04/22 Final result [facility] Work Phone: [facility] Work Phone: Radiology Study observation (narrative) [facility] Work Phone: Arterial Blood Gas, POCon Dwight Test NOT APPLICABLE [facility] FIO2 40.0 [facility] HCO3 (Bld) [Moles/Vol] 22.9 mmol/L 21.0 - 28.0 mmol/L [facility] Interpretation and review of laboratory results Abnormal [facility] Negative Base Excess, Art 4 High 0.0 - 2.0 [facility] O2 Device/Flow/% Adult Ventilator LOIDA [facility] Oxygen saturation in Blood 97 % 94.0 - 98.0 % [facility] POC pCO2 48.2 High [facility] POC pH 7.286 Low 7.350 - 7.450 [facility] POC PO2 106.6 [facility] Sample Site Arterial Line [facility] Dwight Test NOT APPLICABLE [facility] FIO2 40.0 [facility] HCO3 (Bld) [Moles/Vol] 21.8 mmol/L 21.0 - 28.0 mmol/L [facility] Negative Base Excess, Art 5 High 0.0 - 2.0 [facility] Oxygen saturation in Blood 98 % 94.0 - 98.0 % [facility] POC pCO2 47.1 [facility] POC pH 7.274 Low 7.350 - 7.450 [facility] POC PO2 115.5 High [facility] Pt Temp 36.8 [facility] Sample Site Arterial Line [facility] Basic Metab w/rfx MGon 06-03 Anion gap [Moles/Vol] 6 mmol/L Low 9-17 [facility] Comment on above: Performed By: #### B MP, MG, CBC, PT, PTT #### [employer] [address] [place], [place] [phone] Operator Receptionist: Vincent Sy MD Calcium [Mass/Vol] 8.8 mg/dL Normal 8.6-10.4 [facility] Comment on above: Performed By: #### B MP, MG, CBC, PT, PTT #### [employer] [address] [place] [address] Operator Receptionist: Vincent Sy MD Chloride [Moles/Vol] 102 mmol/L Normal 98-107 [facility] Comment on above: Performed By: #### B MP, MG, CBC, PT, PTT #### [employer] [address] [place] [address] Operator Receptionist: Vincent Sy MD CO2 [Moles/Vol] 22 mmol/L Normal 20-31 [facility] Comment on above: Performed By: #### B MP, MG, CBC, PT, PTT #### [address] [address] Operator Receptionist: Vincent Sy MD Creatinine [Mass/Vol] 2.68 mg/dL High 0.70-1.20 [facility] Comment on above: Performed By: #### B MP, MG, CBC, PT, PTT #### [address] [address] Operator Receptionist: Vincent Sy MD GFR/1.73 sq M.predicted among non-blacks MDRD (S/P/Bld) [Vol rate/Area] 30 mL/min/{1.73_m2} Low >60 [facility] Comment on above: Result Comment: These results are not intended for use in patients <18 years of age. eGFR results are calculated without a race factor using the 2020 CKD-EPI equation. Careful clinical correlation is recommended, particularly when comparing to results calculated using previous equations. The CKD-EPI equation is less accurate in patients with extremes of muscle mass, extra-renal metabolism of creatine, excessive creatine ingestion, or following therapy that affects renal tubular secretion. Performed By: #### B MP, MG, CBC, PT, PTT #### [address] [address] Operator Receptionist: Vincent Sy MD Glucose [Mass/Vol] 133 mg/dL High 70-99 [facility] Comment on above: Performed By: #### B MP, MG, CBC, PT, PTT #### [address] [address] Operator Receptionist: Vincent Sy MD Potassium [Moles/Vol] 5.1 mmol/L Normal 3.7-5.3 [facility] Comment on above: Performed By: #### B MP, MG, CBC, PT, PTT #### [facility] [address] [place], [place] [phone] Operator Receptionist: Vincent Sy MD Sodium [Moles/Vol] 130 mmol/L Low 135-144 [facility] Comment on above: Performed By: #### B MP, MG, CBC, PT, PTT #### [facility] [address] [place], [place] [id number] Operator Receptionist: Vincent Sy MD Urea nitrogen [Mass/Vol] 26 mg/dL High 6-20 [facility] Comment on above: Performed By: #### B MP, MG, CBC, PT, PTT #### [facility] [address] [place], [place] [phone] Operator Receptionist: Vincent Sy MD Basic Metabolic Panel 03-3 Anion gap [Moles/Vol] 8 mmol/L Low 9 - 17 mmol/L [facility] Calcium [Mass/Vol] 8.8 mg/dL 8.6 - 10. 4 mg/dL [facility] Chloride [Moles/Vol] 111 mmol/L High 98 - 10 7 mmol/L [facility] CO2 [Moles/Vol] 20 mmol/L 20 - 31 mmol/L [facility] Creatinine [Mass/Vol] 2.15 mg/dL High 0.70 - 1.20 mg/dL [facility] GFR/1.73 sq M.predicted MDRD (S/P/Bld) [Vol rate/Area] 40 mL/min/{1.73_m2} Low - PINF [facility] [employer] Glucose [Mass/Vol] 113 mg/dL High 70 - 99 mg/dL [facility] [employer] Interpretation and review of laboratory results Abnormal [facility] [employer] Potassium [Moles/Vol] 5.3 mmol/L 3.7 - 5.3 mmol/L [facility] Sodium [Moles/Vol] 139 mmol/L 135 - 144 mmol/L [facility] Urea nitrogen [Mass/Vol] 23 mg/dL High 6 - 20 mg/dL [facility] Basic Metabolic Panel w/ Ref oscar to MGon 06-03-2022 Anion gap [Moles/Vol] 6 mmol/L Low 9 - 17 mmol/L [facility] Calcium [Mass/Vol] 8.8 mg/dL 8.6 - 10. 4 mg/dL [facility] Chloride [Moles/Vol] 102 mmol/L 98 - 10 7 mmol/L [facility] CO2 [Moles/Vol] 22 mmol/L 20 - 31 mmol/L [facility] Creatinine [Mass/Vol] 2.68 mg/dL High 0.70 - 1.20 mg/dL [facility] GFR/1.73 sq M.predicted MDRD (S/P/Bld) [Vol rate/Area] 30 mL/min/{1.73_m2} Low - PINF [facility] Glucose [Mass/Vol] 133 mg/dL High 70 - 99 mg/dL [facility] Interpretation and review of laboratory results Abnormal [facility] Potassium [Moles/Vol] 5.1 mmol/L 3.7 - 5.3 mmol/L [facility] Sodium [Moles/Vol] 130 mmol/L Low 135 - 144 mmol/L [facility] Urea nitrogen [Mass/Vol] 26 mg/dL High 6 - 20 mg/dL [facility] Basic Metabolic Profon 06-03 Anion gap [Moles/Vol] 8 mmol/L Low 9-17 [facility] Comment on above: Performed By: #### P T, GLYHGB, CDP #### [facility] [address] [place] [address] Operator Receptionist: Vincetn Sy MD Calcium [Mass/Vol] 8.8 mg/dL Normal 8.6-10.4 [facility] Comment on above: Performed By: #### P T, GLYHGB, CDP #### [facility] [address] [place] [address] Operator Receptionist: Vincent Sy MD Chloride [Moles/Vol] 111 mmol/L High 98-107 [facility] Comment on above: Performed By: #### P T, GLYHGB, CDP #### [facility] [address] [place] [address] Operator Receptionist: Vincent Sy MD CO2 [Moles/Vol] 20 mmol/L Normal 20-31 [facility] Comment on above: Performed By: #### P T, GLYHGB, CDP #### [facility] [address] [place] [address] Operator Receptionist: Vincent Sy MD Creatinine [Mass/Vol] 2.15 mg/dL High 0.70-1.20 [facility] Comment on above: Performed By: #### P T, GLYHGB, CDP #### [address] [address] Operator Receptionist: Vincent Sy MD GFR/1.73 sq M.predicted among non-blacks MDRD (S/P/Bld) [Vol rate/Area] 40 mL/min/{1.73_m2} Low >60 [facility] Comment on above: Result Comment: These results are not intended for use in patients <18 years of age. eGFR results are calculated without a race factor using the 2020 CKD-EPI equation. Careful clinical correlation is recommended, particularly when comparing to results calculated using previous equations. The CKD-EPI equation is less accurate in patients with extremes of muscle mass, extra-renal metabolism of creatine, excessive creatine ingestion, or following therapy that affects renal tubular secretion. Performed By: #### P T, GLYHGB, CDP #### [facility] [address] [place] [address] Operator Receptionist: Vincent Sy MD Glucose [Mass/Vol] 113 mg/dL High 70-99 [facility] Comment on above: Performed By: #### P T, GLYHGB, CDP #### [facility] [address] [place] [address] Operator Receptionist: Vincent Sy MD Potassium [Moles/Vol] 5.3 mmol/L Normal 3.7-5.3 [facility] Comment on above: Performed By: #### P T, GLYHGB, CDP #### [facility] [address] [place] [address] Operator Receptionist: Vincent Sy MD Sodium [Moles/Vol] 139 mmol/L Normal 135-144 [facility] Comment on above: Performed By: #### P T, GLYHGB, CDP #### [facility] [address] [place] [address] Operator Receptionist: Vincent Sy MD Urea nitrogen [Mass/Vol] 23 mg/dL High 6-20 [facility] Comment on above: Performed By: #### P T, GLYHGB, CDP #### [facility] [address] [place] [address] Operator Receptionist: Vincent Sy MD CBCon 06-03-2022 Erythrocyte distribution width (RBC) [Ratio] 13.4 % Normal 11.8-14.4 [facility] Comment on above: Performed By: #### P T, GLYHGB, CDP #### [facility] [address] [place] [address] Operator Receptionist: Vincent Sy MD Hematocrit (Bld) [Volume fraction] 36.3 % Low 40.7-50.3 [facility] Comment on above: Performed By: #### P T, GLYHGB, CDP #### [facility] [address] [place] [address] Operator Receptionist: Vicnent Sy MD Hemoglobin (Bld) [Mass/Vol] 11.8 g/dL Low 13.0-17.0 [facility] Comment on above: Performed By: #### P T, GLYHGB, CDP #### [facility] [address] [place] [address] Operator Receptionist: Vincent Sy MD MCH (RBC) [Entitic mass] 29.4 pg Normal 25.2-33.5 [facility] Comment on above: Performed By: #### P T, GLYHGB, CDP #### [address] [address] Operator Receptionist: Vincent Sy MD MCHC (RBC) [Mass/Vol] 32.5 g/dL Normal 28.4-34.8 [facility] Comment on above: Performed By: #### P T, GLYHGB, CDP #### [address] [address] Operator Receptionist: Vincent Sy MD MCV (RBC) [Entitic vol] 90.5 fL Normal 82.6-102.9 [facility] Comment on above: Performed By: #### P T, GLYHGB, CDP #### [address] [address] Operator Receptionist: Vincent Sy MD NRBC Automated 0.0 per 100 WBC Normal 0.0 [facility] Comment on above: Performed By: #### P T, GLYHGB, CDP #### [address] [address] Operator Receptionist: Vincent Sy MD Platelet mean volume (Bld) [Entitic vol] 10.8 fL Normal 8.1-13.5 [facility] Comment on above: Performed By: #### P T, GLYHGB, CDP #### [address] [address] Operator Receptionist: Vincent Sy MD Platelets (Bld) [#/Vol] 190 10*3/uL Normal 138-453 [facility] Comment on above: Performed By: #### P T, GLYHGB, CDP #### [address] [address] Operator Receptionist: Vincent Sy MD RBC (Bld) [#/Vol] 4.01 10*6/uL Low 4.21-5.77 [facility] Comment on above: Performed By: #### P BRITTANEY Marcano, [place] #### [facility] [address] [place], [place] [id number] Operator Receptionist: Vincent Sy MD WBC (Bld) [#/Vol] 17.1 10*3/uL High 3.5-11.3 [facility] Comment on above: Performed By: #### P TBRITTANEY, CDP #### [facility] [address] [place] [address] Operator Receptionist: Vincent Sy MD Hematocrit (Bld) [Volume fraction] 36.3 % Low 40.7 - 50.3 % [facility] Hemoglobin (Bld) [Mass/Vol] 11.8 g/dL Low 13.0 - 17.0 g/dL [facility] Interpretation and review of laboratory results Abnormal [facility] MCH (RBC) [Entitic mass] 29.4 pg 25.2 - 33.5 pg [facility] MCHC (RBC) [Mass/Vol] 32.5 g/dL 28.4 - 34.8 g/dL [facility] MCV (RBC) [Entitic vol] 90.5 fL 82.6 - 102.9 fL [facility] NRBC Automated 0.0 0.0 per 100 WBC [facility] Platelet distribution width (Bld) [Ratio] 13.4 % 11.8 - 14.4 % [facility] Platelet mean volume (Bld) [Entitic vol] 10.8 fL 8.1 - 13.5 fL [facility] Platelets (Bld) [#/Vol] 190 10*3/uL [facility] RBC (Bld) [#/Vol] 4.01 10*6/uL Low 4.21 - 5.7 7 m/uL [facility] WBC (Bld) [#/Vol] 17.1 10*3/uL High [facility] Calcium, Ionicon 06-03-2022 Calcium [Moles/Vol] 1.33 mmol/L Normal 1.13-1.33 [facility] Comment on above: Performed By: #### P BRITTANEY Marcano, CDP #### [facility] [address] [place] [address] Operator Receptionist: Vincent Sy MD Calcium, Ionizedon 3 Calcium.ionized (Bld) [Moles/Vol] 1.33 mmol/L 1.13 - 1.33 mmol/L [facility] Laboratory - Blood bankon Blood product type Nom (BPU) Leukocyte Reduced Red Cell [facility] Lactic Acid, POCon 3 POC Lactic Acid 0.75 mmol/L 0.56 - 1.39 mmol/L [facility] Magnesiumon 06-03-2022 Magnesium [Mass/Vol] 2.4 mg/dL Normal 1.6-2.6 [facility] Comment on above: Performed By: #### P TBRITTANEY, CDP #### [facility] [address] [place] [address] Operator Receptionist: Vincent Sy MD Magnesium [Mass/Vol] 2.4 mg/dL 1.6 - 2 .6 mg/dL [facility] No Panel Informationon 06-03 [facility] Crossmatch Result [facility] Dispense Status REL FROM [facility] Transfusion Status OK TO TRANSFUSE B ON [facility] Unit Divison 0 [facility] Interpretation and review of laboratory results Abnormal [facility] POC Glucose Fingerstickon Glucose [Mass/Vol] 162 mg/dL High 75 - 110 mg/dL [facility] Interpretation and review of laboratory results Abnormal [facility] Glucose [Mass/Vol] 153 mg/dL High 75 - 110 mg/dL [facility] Interpretation and review of laboratory results Abnormal [facility] Glucose [Mass/Vol] 207 mg/dL High 75 - 110 mg/dL [facility] Interpretation and review of laboratory results Abnormal [facility] Glucose [Mass/Vol] 197 mg/dL High 75 - 110 mg/dL [facility] Interpretation and review of laboratory results Abnormal [facility] Glucose [Mass/Vol] 92 mg/dL 75 - 110 mg/dL [facility] Glucose [Mass/Vol] 104 mg/dL 75 - 110 mg/dL [facility] Glucose [Mass/Vol] 103 mg/dL 75 - 110 mg/dL [facility] Glucose [Mass/Vol] 116 mg/dL High 75 - 110 mg/dL [facility] Interpretation and review of laboratory results Abnormal [facility] Glucose [Mass/Vol] 126 mg/dL High 75 - 110 mg/dL [facility] Interpretation and review of laboratory results Abnormal [facility] POCT Glucoseon 06-03-2022 Glucose [Mass/Vol] 135 mg/dL High 74 - 100 mg/dL [facility] PTon 06-03-2022 INR Coag (PPP) [Relative time] 1.1 {INR} Normal [facility] Comment on above: Result Comment: Therapeutic Range: Moderate Anticoagulant Intensity: INR = 2.0-3.0 High Anticoagulant Intensity: INR = 2.5-3.5 Performed By: #### P T, GLYHGB, CDP #### [facility] [address] [place] [address] Operator Receptionist: Vincent Sy MD PT Coag (PPP) [Time] 14.6 s Normal 11.7-14.9 [facility] Comment on above: Performed By: #### P T, GLYHGB, CDP #### [employer] [address] [place], [place] [id number] Operator Receptionist: Vincent Sy MD Protime-INRon 06-03-2022 INR Coag (PPP) [Relative time] 1.1 {INR} [facility] PT Coag (PPP) [Time] 14.6 s [facility] TYPE AND SCREENon 06-03-2022 ABO/Rh Positive [facility] Arm Band Number [id number] [facility] Blood product unit ID (Dose) [#] [id number] [facility] Blood product unit ID (Dose) [#] [id number] [facility] Blood product unit ID (Dose) [#] [id number] [facility] Blood product unit ID (Dose) [#] [id number] [facility] Expiration Date 06/02/2022,2359 [facility] Vancomycin Level, Randomon 0 06-03-2022 Vancomycin Rm 31.9 ug/mL [facility] Vancomycin,Randomon 06-04-19 Vancomycin 31.9 ug/mL Normal [facility] Comment on above: Result Comment: High er trough serum vancomycin concentrations of 15-20 ug/mL are recommended for complicated infections such as bacteremia, endocarditis, osteomyelitis, meningitis, and hospital acquired pneumonia. Performed By: #### B MP, MG, CBC, PT, PTT #### [facility] [place] [address] Operator Receptionist: Vincent Sy MD XR CHEST PORTABLEon 06-04-19 23 XR CHEST PORTABLE EXAMINATION: ONE XRAY VIEW OF THE CHEST 06/03/2022 5:59 am COMPARISON: 02 June 2022 HISTORY: ORDERING SYSTEM PROVIDED HISTORY: Post op open heart surgery TECHNOLOGIST PROVIDED HISTORY: Post op open heart surgery Reason for Exam: post open heart surgery port upr at 440am FINDINGS: AP portable view of the chest time stamped at 440 hours demonstrates prior median sternotomy. Right IJ catheter terminates in the superior vena cava. Left-sided chest tubes in situ. Stable cardiomegaly. Prior endotracheal and intestinal tubes have been removed. Vascular congestion and atelectasis are noted without gross effusion or extrapleural air. IMPRESSION: Interval removal of endotracheal and intestinal tubes. Continue cardiomegaly and vascular congestion. Support devices as above. Interpreted by: Eliana Crisostomo MD Signed by: Eliana rCisostomo MD 06/03/22 Final result Normal [facility] MHPN RIS CONSOLIDATED MHPN RIS CONSOLIDATED [facility] [employer] Work Phone: Radiology Study observation (narrative) [facility] [employer] Work Phone: XR CHEST PORTABLEOrdered By: Eliana Crisostomo on 06-03-2022 [facility] Work Phone: APTTon 06-02-2022 aPTT Coag (Bld) [Time] 28.1 s Normal 23.0-36.5 [facility] Comment on above: Performed By: #### B MP, MG, CBC, PT, PTT #### [employer] [address] [place] [address] Operator Receptionist: Vincent Sy MD aPTT Coag (Bld) [Time] 28.1 s [facility] aPTT Coag (Bld) [Time] 66.0 s High 23.0-36.5 [facility] Comment on above: Result Comment: NOTE : NEW REFERENCE RANGE Performed By: #### B MP, MG, CBC, PT, PTT #### [facility] [place] [address] [place] [address] Operator Receptionist: Vincent Sy MD Anion Gap (Calc) POCon 06-02 Anion gap [Moles/Vol] 11 mmol/L 7 - 16 mmol/L [facility] Arterial Blood Gas, POCon Dwight Test NOT APPLICABLE [facility] [employer] FIO2 40.0 [facility] HCO3 (Bld) [Moles/Vol] 19.0 mmol/L Low 21.0 - 28.0 mmol/L [facility] Negative Base Excess, Art 8 High 0.0 - 2.0 [facility] O2 Device/Flow/% Adult Ventilator LOIDA [facility] Oxygen saturation in Blood 97 % 94.0 - 98.0 % [facility] POC pCO2 46.1 [facility] P[facility] pH 7.225 Low 7.350 - 7.450 [facility] P[facility] PO2 111.6 High [facility] Sample Site Arterial Line [facility] Dwight Test NOT APPLICABLE [facility] FIO2 100.0 [facility] HCO3 (Bld) [Moles/Vol] 20.5 mmol/L Low 21.0 - 28.0 mmol/L [facility] Mode SIMV(PRVC)+ PS [facility] [employer] Negative Base Excess, Art 6 High 0.0 - 2.0 [facility] O2 Device/Flow/% Adult Ventilator LOIDA N [facility] Oxygen saturation in Blood 99 % High 94.0 - 98.0 % [facility] POC pCO2 44.6 [facility] POC pH 7.271 Low 7.350 - 7.450 [facility] POC PO2 145.5 High [facility] Sample Site Arterial Line [facility] HCO3 (Bld) [Moles/Vol] 20.9 mmol/L Low 21.0 - 28.0 mmol/L [facility] Negative Base Excess, Art 6 High 0.0 - 2.0 [facility] Oxygen saturation in Blood 100 % High 94.0 - 98.0 % [facility] POC pCO2 45.9 [facility] POC pH 7.267 Low 7.350 - 7.450 [facility] POC PO2 274.0 High [facility] HCO3 (Bld) [Moles/Vol] 20.9 mmol/L Low 21.0 - 28.0 mmol/L [facility] Negative Base Excess, Art 5 High 0.0 - 2.0 [facility] Oxygen saturation in Blood 100 % High 94.0 - 98.0 % [facility] POC pCO2 40.8 [facility] P[facility] pH 7.318 Low 7.350 - 7.450 [facility] POC PO2 349.8 High [facility] HCO3 (Bld) [Moles/Vol] 21.4 mmol/L 21.0 - 28.0 mmol/L [facility] Negative Base Excess, Art 3 High 0.0 - 2.0 [facility] Oxygen saturation in Blood 100 % High 94.0 - 98.0 % [facility] POC pCO2 34.9 Low [facility] POC pH 7.396 7.350 - 7.450 [facility] POC PO2 308.3 High [facility] HCO3 (Bld) [Moles/Vol] 20.9 mmol/L Low 21.0 - 28.0 mmol/L [facility] Negative Base Excess, Art 4 High 0.0 - 2.0 [facility] Oxygen saturation in Blood 100 % High 94.0 - 98.0 % [facility] POC pCO2 35.5 [facility] POC pH 7.378 7.350 - 7.450 [facility] POC PO2 262.8 High [facility] HCO3 (Bld) [Moles/Vol] 22.3 mmol/L 21.0 - 28.0 mmol/L [facility] Negative Base Excess, Art 4 High 0.0 - 2.0 [facility] Oxygen saturation in Blood 100 % High 94.0 - 98.0 % [facility] POC pCO2 42.6 [facility] POC pH 7.327 Low 7.350 - 7.450 [facility] POC PO2 245.8 High [facility] HCO3 (Bld) [Moles/Vol] 20.4 mmol/L Low 21.0 - 28.0 mmol/L [facility] Negative Base Excess, Art 6 High 0.0 - 2.0 [facility] Oxygen saturation in Blood 100 % High 94.0 - 98.0 % [facility] POC pCO2 40.6 [facility] POC pH 7.310 Low 7.350 - 7.450 [facility] POC PO2 204.9 High [facility] HCO3 (Bld) [Moles/Vol] 22.8 mmol/L 21.0 - 28.0 mmol/L [facility] Negative Base Excess, Art 3 High 0.0 - 2.0 [facility] Oxygen saturation in Blood 100 % High 94.0 - 98.0 % [facility] POC pCO2 42.4 [facility] POC pH 7.339 Low 7.350 - 7.450 [facility] POC PO2 187.4 High [facility] Basic Metabolic Panelon 03-3 Anion gap [Moles/Vol] 8 mmol/L Low 9 - 17 mmol/L [facility] Calcium [Mass/Vol] 9.1 mg/dL 8.6 - 10. 4 mg/dL [facility] Chloride [Moles/Vol] 111 mmol/L High 98 - 10 7 mmol/L [facility] CO2 [Moles/Vol] 19 mmol/L Low 20 - 31 mmol/L [facility] Creatinine [Mass/Vol] 1.94 mg/dL High 0.70 - 1.20 mg/dL [facility] GFR/1.73 sq M.predicted MDRD (S/P/Bld) [Vol rate/Area] 45 mL/min/{1.73_m2} Low - PINF [facility] Glucose [Mass/Vol] 93 mg/dL 70 - 99 mg/dL [facility] [facility] Potassium [Moles/Vol] 5.0 mmol/L 3.7 - 5.3 mmol/L [facility] Sodium [Moles/Vol] 138 mmol/L 135 - 144 mmol/L [facility] Urea nitrogen [Mass/Vol] 20 mg/dL 6 - 20 mg/dL [facility] Anion gap [Moles/Vol] 13 mmol/L 9 - 17 mmol/L [facility] Calcium [Mass/Vol] 10.6 mg/dL High 8.6 - 10. 4 mg/dL [facility] Chloride [Moles/Vol] 110 mmol/L High 98 - 10 7 mmol/L [facility] CO2 [Moles/Vol] 17 mmol/L Low 20 - 31 mmol/L [facility] Creatinine [Mass/Vol] 1.79 mg/dL High 0.70 - 1.20 mg/dL [facility] GFR/1.73 sq M.predicted MDRD (S/P/Bld) [Vol rate/Area] 49 mL/min/{1.73_m2} Low - PINF [facility] Glucose [Mass/Vol] 103 mg/dL High 70 - 99 mg/dL [facility] Interpretation and review of laboratory results Abnormal [facility] Potassium [Moles/Vol] 4.6 mmol/L 3.7 - 5.3 mmol/L [facility] Sodium [Moles/Vol] 140 mmol/L 135 - 144 mmol/L [facility] Urea nitrogen [Mass/Vol] 22 mg/dL High 6 - 20 mg/dL [facility] Basic Metabolic Profon 06-02 Anion gap [Moles/Vol] 8 mmol/L Low 9-17 [facility] Comment on above: Performed By: #### B MP, MG, CBC, PT, PTT #### [facility] [address] [place] [address] Operator Receptionist: Vincent Sy MD Calcium [Mass/Vol] 9.1 mg/dL Normal 8.6-10.4 [facility] Comment on above: Performed By: #### B MP, MG, CBC, PT, PTT #### [facility] [place] [address] [place] [address] Operator Receptionist: Vincent Sy MD Chloride [Moles/Vol] 111 mmol/L High 98-107 [facility] Comment on above: Performed By: #### B MP, MG, CBC, PT, PTT #### [facility] [place] [address] [place] [address] Operator Receptionist: Vincent Sy MD CO2 [Moles/Vol] 19 mmol/L Low 20-31 [facility] Comment on above: Performed By: #### B MP, MG, CBC, PT, PTT #### [facility] [address] [place] [id number] Operator Receptionist: Vincent Sy MD Creatinine [Mass/Vol] 1.94 mg/dL High 0.70-1.20 [facility] Comment on above: Performed By: #### B MP, MG, CBC, PT, PTT #### [address] [address] Operator Receptionist: Vincent Sy MD GFR/1.73 sq M.predicted among non-blacks MDRD (S/P/Bld) [Vol rate/Area] 45 mL/min/{1.73_m2} Low >60 [facility] Comment on above: Result Comment: These results are not intended for use in patients <18 years of age. eGFR results are calculated without a race factor using the 2020 CKD-EPI equation. Careful clinical correlation is recommended, particularly when comparing to results calculated using previous equations. The CKD-EPI equation is less accurate in patients with extremes of muscle mass, extra-renal metabolism of creatine, excessive creatine ingestion, or following therapy that affects renal tubular secretion. Performed By: #### B MP, MG, CBC, PT, PTT #### [facility] [address] [place] [address] Operator Receptionist: Vincent Sy MD Glucose [Mass/Vol] 93 mg/dL Normal 70-99 [facility] Comment on above: Performed By: #### B MP, MG, CBC, PT, PTT #### [facility] [address] [place] [address] Operator Receptionist: Vincent Sy MD Potassium [Moles/Vol] 5.0 mmol/L Normal 3.7-5.3 [facility] Comment on above: Performed By: #### B MP, MG, CBC, PT, PTT #### [facility] [address] [place] [address] Operator Receptionist: Vincent Sy MD Sodium [Moles/Vol] 138 mmol/L Normal 135-144 [facility] Comment on above: Performed By: #### B MP, MG, CBC, PT, PTT #### [facility] [place] [address] [place] [address] Operator Receptionist: Vincent Sy MD Urea nitrogen [Mass/Vol] 20 mg/dL Normal 6-20 [facility] Comment on above: Performed By: #### B MP, MG, CBC, PT, PTT #### [facility] [address] [place] [address] Operator Receptionist: Vincent Sy MD Anion gap [Moles/Vol] 13 mmol/L Normal 9-17 [facility] Comment on above: Performed By: #### B MP, MG, CBC, PT, PTT #### [facility] [address] [place] [address] Operator Receptionist: Vincent Sy MD Calcium [Mass/Vol] 10.6 mg/dL High 8.6-10.4 [facility] Comment on above: Performed By: #### B MP, MG, CBC, PT, PTT #### [facility] [address] [place] [address] Operator Receptionist: Vincent Sy MD Chloride [Moles/Vol] 110 mmol/L High 98-107 [facility] Comment on above: Performed By: #### B MP, MG, CBC, PT, PTT #### [facility] [address] [place] [address] Operator Receptionist: Vincent Sy MD CO2 [Moles/Vol] 17 mmol/L Low 20-31 [facility] Comment on above: Performed By: #### B MP, MG, CBC, PT, PTT #### [facility] [address] [place] [address] Operator Receptionist: Vincent Sy MD Creatinine [Mass/Vol] 1.79 mg/dL High 0.70-1.20 [facility] Comment on above: Performed By: #### B MP, MG, CBC, PT, PTT #### [facility] [address] [place] [address] Operator Receptionist: Vincent Sy MD GFR/1.73 sq M.predicted among non-blacks MDRD (S/P/Bld) [Vol rate/Area] 49 mL/min/{1.73_m2} Low >60 [facility] Comment on above: Result Comment: These results are not intended for use in patients <18 years of age. eGFR results are calculated without a race factor using the 2020 CKD-EPI equation. Careful clinical correlation is recommended, particularly when comparing to results calculated using previous equations. The CKD-EPI equation is less accurate in patients with extremes of muscle mass, extra-renal metabolism of creatine, excessive creatine ingestion, or following therapy that affects renal tubular secretion. Performed By: #### B MP, MG, CBC, PT, PTT #### [facility] [place] [address] [place] [address]13 Operator Receptionist: Vincent Sy MD Glucose [Mass/Vol] 103 mg/dL High 70-99 [facility] Comment on above: Performed By: #### B MP, MG, CBC, PT, PTT #### [employer] [address] [place] [address] 01695 Operator Receptionist: Vincent Sy MD Potassium [Moles/Vol] 4.6 mmol/L Normal 3.7-5.3 [facility] Comment on above: Performed By: #### B MP, MG, CBC, PT, PTT #### [employer] [address] [place] [address] 61794 Operator Receptionist: Vincent Sy MD Sodium [Moles/Vol] 140 mmol/L Normal 135-144 [facility] Comment on above: Performed By: #### B MP, MG, CBC, PT, PTT #### [employer] [address] [place] [address] 87942 Operator Receptionist: Vincent Sy MD Urea nitrogen [Mass/Vol] 22 mg/dL High 6-20 [facility] Comment on above: Performed By: #### B MP, MG, CBC, PT, PTT #### [employer] [address] [place] [address] 52211 Operator Receptionist: Vincent Sy MD CALCIUM, IONIC (POC)on 06-02 POC Ionized Calcium 1.48 mmol/L High 1.15 - 1 .33 mmol/L [facility] POC Ionized Calcium 1.44 mmol/L High 1.15 - 1 .33 mmol/L [facility] POC Ionized Calcium 1.48 mmol/L High 1.15 - 1 .33 mmol/L [facility] POC Ionized Calcium 1.27 mmol/L 1.15 - 1 .33 mmol/L [facility] POC Ionized Calcium 1.24 mmol/L 1.15 - 1 .33 mmol/L [facility] POC Ionized Calcium 1.31 mmol/L 1.15 - 1 .33 mmol/L [facility] POC Ionized Calcium 1.35 mmol/L High 1.15 - 1 .33 mmol/L [facility] POC Ionized Calcium 1.37 mmol/L High 1.15 - 1 .33 mmol/L [facility] CBCon 06-02-2022 Erythrocyte distribution width (RBC) [Ratio] 13.5 % Normal 11.8-14.4 [facility] Comment on above: Performed By: #### B MP, MG, CBC, PT, PTT #### [employer] [address] [place] [address] 22857 Operator Receptionist: Vincent Sy MD Hematocrit (Bld) [Volume fraction] 34.9 % Low 40.7-50.3 [facility] Comment on above: Performed By: #### B MP, MG, CBC, PT, PTT #### [employer] [address] [place] [address] [phone] Operator Receptionist: Vincent Sy MD Hemoglobin (Bld) [Mass/Vol] 11.6 g/dL Low 13.0-17.0 [facility] Comment on above: Performed By: #### B MP, MG, CBC, PT, PTT #### [employer] [address] [place] [address] Operator Receptionist: Vincent Sy MD MCH (RBC) [Entitic mass] 29.7 pg Normal 25.2-33.5 [facility] Comment on above: Performed By: #### B MP, MG, CBC, PT, PTT #### [address] [address] Operator Receptionist: Vincent Sy MD MCHC (RBC) [Mass/Vol] 33.2 g/dL Normal 28.4-34.8 [facility] Comment on above: Performed By: #### B MP, MG, CBC, PT, PTT #### [place] [address] Operator Receptionist: Vincent Sy MD MCV (RBC) [Entitic vol] 89.3 fL Normal 82.6-102.9 [facility] Comment on above: Performed By: #### B MP, MG, CBC, PT, PTT #### [place] [address] Operator Receptionist: Vincent Sy MD NRBC Automated 0.0 per 100 WBC Normal 0.0 [facility] Comment on above: Performed By: #### B MP, MG, CBC, PT, PTT #### [place] [address] Operator Receptionist: Vincent Sy MD Platelet mean volume (Bld) [Entitic vol] 10.5 fL Normal 8.1-13.5 [facility] Comment on above: Performed By: #### B MP, MG, CBC, PT, PTT #### [place] [address] Operator Receptionist: Vincent Sy MD Platelets (Bld) [#/Vol] 154 10*3/uL Normal 138-453 [facility] Comment on above: Performed By: #### B MP, MG, CBC, PT, PTT #### [place] [address] [place], [place] [phone] Operator Receptionist: Vincent Sy MD RBC (Bld) [#/Vol] 3.91 10*6/uL Low 4.21-5.77 [facility] Comment on above: Performed By: #### B MP, MG, CBC, PT, PTT #### [facility] [place] [address] [place], [place] [phone] Operator Receptionist: Vincent Sy MD WBC (Bld) [#/Vol] 11.9 10*3/uL High 3.5-11.3 [facility] Comment on above: Performed By: #### B MP, MG, CBC, PT, PTT #### [facility] [place] [facility] [place], [place] [phone] Operator Receptionist: Vincent Sy MD Hematocrit (Bld) [Volume fraction] 34.9 % Low 40.7 - 50.3 % [facility] Hemoglobin (Bld) [Mass/Vol] 11.6 g/dL Low 13.0 - 17.0 g/dL [facility] Interpretation and review of laboratory results Abnormal [facility] MCH (RBC) [Entitic mass] 29.7 pg 25.2 - 33.5 pg [facility] MCHC (RBC) [Mass/Vol] 33.2 g/dL 28.4 - 34.8 g/dL [facility] MCV (RBC) [Entitic vol] 89.3 fL 82.6 - 102.9 fL [facility] NRBC Automated 0.0 0.0 per 100 WBC [facility] Platelet distribution width (Bld) [Ratio] 13.5 % 11.8 - 14.4 % [facility] Platelet mean volume (Bld) [Entitic vol] 10.5 fL 8.1 - 13.5 fL [facility] Platelets (Bld) [#/Vol] 154 10*3/uL [facility] RBC (Bld) [#/Vol] 3.91 10*6/uL Low 4.21 - 5.7 7 m/uL [facility] WBC (Bld) [#/Vol] 11.9 10*3/uL High [facility] CHLORIDE (POC)on 06-02-2022 Chloride [Moles/Vol] 110 mmol/L High 98 - 10 7 mmol/L [facility] Calcium, Ionicon 06-02-2022 Calcium [Moles/Vol] 1.35 mmol/L High 1.13-1.33 [facility] Comment on above: Performed By: #### B MP, MG, CBC, PT, PTT #### [facility] [address] [phone] Operator Receptionist: Vincent Sy MD Calcium, Ionizedon Calcium.ionized (Bld) [Moles/Vol] 1.35 mmol/L High 1.13 - 1.33 mmol/L [facility] Interpretation and review of laboratory results Abnormal [facility] Creatinine W/GFR Point of Ca reon 06-02-2022 Creatinine [Mass/Vol] 1.87 mg/dL High 0.51 - 1.19 mg/dL [facility] eGFR, POC 47 mL/min/1.73m2 [facility] ELECTROLYTES PLUSon 06-03-19 Anion gap [Moles/Vol] 13 mmol/L 7 - 16 mmol/L [facility] Chloride [Moles/Vol] 111 mmol/L High 98 - 10 7 mmol/L [facility] CO2 [Moles/Vol] 20 mmol/L Low 22 - 30 mmol/L [facility] Potassium [Moles/Vol] 5.0 mmol/L High 3.5 - 4.5 mmol/L [facility] Sodium [Moles/Vol] 143 mmol/L 138 - 146 mmol/L [facility] Hemoglobin and hematocrit, b loodon 06-02-2022 Hematocrit (Bld) [Volume fraction] 35 % Low 41 - 53 % [facility] Hemoglobin (Bld) [Mass/Vol] 11.9 g/dL Low 13.5 - 17.5 g/dL [facility] Hematocrit (Bld) [Volume fraction] 33 % Low 41 - 53 % [facility] Hemoglobin (Bld) [Mass/Vol] 11.3 g/dL Low 13.5 - 17.5 g/dL [facility] Hematocrit (Bld) [Volume fraction] 25 % Low 41 - 53 % [facility] Hemoglobin (Bld) [Mass/Vol] 8.6 g/dL Low 13.5 - 17.5 g/dL [facility] Hematocrit (Bld) [Volume fraction] 23 % Low 41 - 53 % [facility] Hemoglobin (Bld) [Mass/Vol] 7.9 g/dL Low 13.5 - 17.5 g/dL [facility] Hematocrit (Bld) [Volume fraction] 26 % Low 41 - 53 % [facility] Hemoglobin (Bld) [Mass/Vol] 8.9 g/dL Low 13.5 - 17.5 g/dL [facility] Hematocrit (Bld) [Volume fraction] 27 % Low 41 - 53 % [facility] Hemoglobin (Bld) [Mass/Vol] 9.0 g/dL Low 13.5 - 17.5 g/dL [facility] Hematocrit (Bld) [Volume fraction] 34 % Low 41 - 53 % [facility] Hemoglobin (Bld) [Mass/Vol] 11.5 g/dL Low 13.5 - 17.5 g/dL [facility] Hematocrit (Bld) [Volume fraction] 38 % Low 41 - 53 % [facility] Hemoglobin (Bld) [Mass/Vol] 12.8 g/dL Low 13.5 - 17.5 g/dL [facility] Lactic Acid, POCon POC Lactic Acid 0.61 mmol/L 0.56 - 1.39 mmol/L [facility] POC Lactic Acid 0.88 mmol/L 0.56 - 1.39 mmol/L [facility] Magnesiumon 06-02-2022 Magnesium [Mass/Vol] 3.1 mg/dL High 1.6-2.6 [facility] Comment on above: Performed By: #### B MP, MG, CBC, PT, PTT #### [facility] [address] [place] [address] Operator Receptionist: Vincent Sy MD Magnesium [Mass/Vol] 3.1 mg/dL High 1.6 - 2 .6 mg/dL [facility] No Panel Informationon 06-02 Interpretation and review of laboratory results Abnormal [facility] Interpretation and review of laboratory results Abnormal [facility] Interpretation and review of laboratory results Abnormal [facility] Interpretation and review of laboratory results Abnormal [facility] Interpretation and review of laboratory results Abnormal [facility] Interpretation and review of laboratory results Abnormal [facility] Interpretation and review of laboratory results Abnormal [facility] Interpretation and review of laboratory results Abnormal [facility] Interpretation and review of laboratory results Abnormal [facility] Interpretation and review of laboratory results Abnormal [facility] POC Global Hemostasis (TEG 6 S)on 06-02-2022 Angle TEG 64.0 deg 63.0 - 78.0 deg [facility] Fibrinogen, Functional TEG 23.3 mm 15.0 - 32.0 mm [facility] Interpretation and review of laboratory results Abnormal [facility] Kinetics TEG 2.3 min High 0.8 - 2.1 min [facility] [place] (Max Clot) TEG 57.2 mm 52.0 - 69. 0 mm [facility](Max Clot) Rapid TEG 61.4 mm 52.0 - 70.0 mm [facility] Performing Location Performed at [facility] Perfusion [facility] Reaction Time TEG 8.7 min 4.6 - 9.1 min [facility] Reaction Time TEG w Heparin 10.7 min High 4.3 - 8.3 min [facility] Angle TEG 78.0 deg 63.0 - 78.0 deg [facility] Fibrinogen, Functional TEG 33.1 mm High 15.0 - 32.0 mm [facility] Interpretation and review of laboratory results Abnormal [facility] Kinetics TEG 0.8 min 0.8 - 2.1 min [facility] MA (Max Clot) TEG 66.2 mm 52.0 - 69. 0 mm [facility] MA(Max Clot) Rapid TEG 68.1 mm 52.0 - 70.0 mm [facility] Performing Location Performed at [facility] Perfusion [facility] Reaction Time TEG 5.5 min 4.6 - 9.1 min [facility] Reaction Time TEG w Heparin 5.8 min 4.3 - 8.3 min [facility] POC Glucose Fingerstickon Glucose [Mass/Vol] 86 mg/dL 75 - 110 mg/dL [facility] Glucose [Mass/Vol] 106 mg/dL 75 - 110 mg/dL [facility] Glucose [Mass/Vol] 86 mg/dL 75 - 110 mg/dL [facility] Glucose [Mass/Vol] 88 mg/dL 75 - 110 mg/dL [facility] Glucose [Mass/Vol] 90 mg/dL 75 - 110 mg/dL [facility] POCT Glucoseon 06-02-2022 Glucose [Mass/Vol] 136 mg/dL High 74 - 100 mg/dL [facility] Glucose [Mass/Vol] 85 mg/dL 74 - 100 mg/dL [facility] Glucose [Mass/Vol] 100 mg/dL 74 - 100 mg/dL [facility] Glucose [Mass/Vol] 106 mg/dL High 74 - 100 mg/dL [facility] Glucose [Mass/Vol] 119 mg/dL High 74 - 100 mg/dL [facility] Glucose [Mass/Vol] 90 mg/dL 74 - 100 mg/dL [facility] Glucose [Mass/Vol] 95 mg/dL 74 - 100 mg/dL [facility] Glucose [Mass/Vol] 89 mg/dL 74 - 100 mg/dL [facility] Glucose [Mass/Vol] 104 mg/dL High 74 - 100 mg/dL [facility] POCT urea (BUN)on 06-02-2022 Urea nitrogen [Mass/Vol] 20 mg/dL 8 - 26 mg/dL [facility] POTASSIUM (POC)on 06-02-2022 Potassium [Moles/Vol] 4.9 mmol/L High 3.5 - 4.5 mmol/L [facility] Potassium [Moles/Vol] 5.3 mmol/L High 3.5 - 4.5 mmol/L [facility] Potassium [Moles/Vol] 5.6 mmol/L High 3.5 - 4.5 mmol/L [facility] Potassium [Moles/Vol] 6.1 mmol/L Critically high 3.5 - 4.5 mmol/L [facility] Potassium [Moles/Vol] 5.3 mmol/L High 3.5 - 4.5 mmol/L [facility] Potassium [Moles/Vol] 4.8 mmol/L High 3.5 - 4.5 mmol/L [facility] Potassium [Moles/Vol] 4.5 mmol/L 3.5 - 4.5 mmol/L [facility] PTon 06-02-2022 INR Coag (PPP) [Relative time] 1.3 {INR} Normal [facility] Comment on above: Result Comment: Therapeutic Range: Moderate Anticoagulant Intensity: INR = 2.0-3.0 High Anticoagulant Intensity: INR = 2.5-3.5 Performed By: #### B MP, MG, CBC, PT, PTT #### [facility] [place] [address] [place] [id number] Operator Receptionist: Vincent Sy MD PT Coag (PPP) [Time] 15.8 s High 11.7-14.9 [facility] Comment on above: Performed By: #### B MP, MG, CBC, PT, PTT #### [employer] [address] [place], [place] [phone] Operator Receptionist: Vincent Sy MD Protime-INRon 06-02-2022 INR Coag (PPP) [Relative time] 1.3 {INR} [facility] Interpret[facility] and review of [facility] results Abnormal [facility] PT Coag (PPP) [Time] 15.8 s High [facility] [employer] SODIUM (POC)on 06-02-2022 Sodium [Moles/Vol] 143 mmol/L 138 - 146 mmol/L [facility] [employer] Sodium [Moles/Vol] 140 mmol/L 138 - 146 mmol/L [facility] [employer] Sodium [Moles/Vol] 138 mmol/L 138 - 146 mmol/L [facility] [employer] Sodium [Moles/Vol] 140 mmol/L 138 - 146 mmol/L [facility] [employer] Sodium [Moles/Vol] 143 mmol/L 138 - 146 mmol/L [facility] [employer] Sodium [Moles/Vol] 144 mmol/L 138 - 146 mmol/L [facility] Type + Screenon 06-02-2022 Type + Screen Sample Expiration 06/02/2022,2359 Arm Band Number [id number] ABO/Rh(D) B POSITIVE Antibody Screen NEGATIVE Unit Number [id number] Blood Component Type Leukocyte Reduced Red Cell Unit Division 00 Status of Unit REL FROM ALLOC Transfusion Status OK TO TRANSFUSE Crossmatch Result COMPATIBLE Unit Number [id number] Blood Component Type Leukocyte Reduced Red Cell Unit Division 00 Status of Unit REL FROM ALLOC Transfusion Status OK TO TRANSFUSE Crossmatch Result COMPATIBLE Unit Number [id number] Blood Component Type Leukocyte Reduced Red Cell Unit Division 00 Status of Unit REL FROM ALLOC Transfusion Status OK TO TRANSFUSE Crossmatch Result COMPATIBLE Unit Number [id number] Blood Component Type Leukocyte Reduced Red Cell Unit Division 00 Status of Unit REL FROM ALLOC Transfusion Status OK TO TRANSFUSE Crossmatch Result COMPATIBLE Normal [facility] Comment on above: Performed By: #### B MP, MG, CBC, PT, PTT #### [facility] [place] [address] [place] [address] Operator Receptionist: Vincent Sy MD XR CHEST PORTABLEon 06-03-19 XR CHEST PORTABLE EXAMINATION: ONE XRAY VIEW OF THE CHEST 06/02/2022 6:56 pm COMPARISON: 09/11/2021 HISTORY: ORDERING SYSTEM PROVIDED HISTORY: Post op open heart surgery TECHNOLOGIST PROVIDED HISTORY: Post op open heart surgery Reason for Exam: post open heart supine port FINDINGS: Endotracheal tube terminates 3 cm above the rm. Right internal jugular catheter with tip at the mid SVC. Enteric tube courses below the diaphragm. Chest tubes are present. Interval median sternotomy. Heart size is stable. Minimal linear atelectasis. No lung consolidation. No pneumothorax or pleural effusion. IMPRESSION: Interval cardiac surgery. Satisfactory position of support devices. Minimal areas of atelectasis. Interpreted by: Miik Delgado MD Signed by: Miki Delgado MD 06/02/22 Final result Normal [facility] MHPN RIS CONSOLIDATED MHPN RIS CONSOLIDATED [facility] Work Phone: Radiology Study observation (narrative) [facility] [employer] Work Phone: XR CHEST PORTABLEOrdered By: Miki Delgado on 06-02-2022 [facility] [employer] Work Phone: APTTon 06-01-2022 aPTT Coag (Bld) [Time] 66.0 s High [place] [employer] [facility] Interpretation and review of laboratory results Abnormal [facility] [employer] aPTT Coag (Bld) [Time] 60.4 s High 23.0-36.5 [facility] Comment on above: Result Comment: NOTE : NEW REFERENCE RANGE Performed By: #### B MP, MG, CBC, PT, PTT #### [employer] [address] [place] [address] Operator Receptionist: Vincent Sy MD aPTT Coag (Bld) [Time] 60.4 s High LOIDA N [employer] Interpretation and review of laboratory results Abnormal [facility] aPTT Coag (Bld) [Time] 77.8 s High 23.0-36.5 [facility] Comment on above: Result Comment: NOTE : NEW REFERENCE RANGE Performed By: #### P TT #### [employer] [address] [place], [place] [phone] Operator Receptionist: Vincent Sy MD aPTT Coag (Bld) [Time] 77.8 s High [place] N [facility] [employer] Interpretation and review of laboratory results Abnormal [facility] aPTT Coag (Bld) [Time] 68.8 s High 23.0-36.5 [facility] Comment on above: Result Comment: NOTE : NEW REFERENCE RANGE Performed By: #### B MP, MG, CBC, PT, PTT #### [employer] [address] [place] [address] [phone] Operator Receptionist: Vincent Sy MD aPTT Coag (Bld) [Time] 68.8 s High [place] N [facility] Interpretation and review of laboratory results Abnormal [facility] Basic Metabolic Panelon 05-05 GFR/1.73 sq M.predicted MDRD (S/P/Bld) [Vol rate/Area] 55 mL/min/{1.73_m2} Low - PINF [facility] Interpretation and review of laboratory results Abnormal [facility] Basic Metabolic Profon 06-01 GFR/1.73 sq M.predicted among non-blacks MDRD (S/P/Bld) [Vol rate/Area] 55 mL/min/{1.73_m2} Low >60 [facility] Comment on above: Result Comment: These results are not intended for use in patients <18 years of age. eGFR results are calculated without a race factor using the 2020 CKD-EPI equation. Careful clinical correlation is recommended, particularly when comparing to results calculated using previous equations. The CKD-EPI equation is less accurate in patients with extremes of muscle mass, extra-renal metabolism of creatine, excessive creatine ingestion, or following therapy that affects renal tubular secretion. Performed By: #### P TT #### [facility] [place] [address] [place] [address] [phone] Operator Receptionist: Vincent Sy MD Anion gap [Moles/Vol] 7 mmol/L Low 9-17 [facility] Comment on above: Performed By: #### P TT #### [facility] [address] [place] [address] Operator Receptionist: Vincent Sy MD Calcium [Mass/Vol] 10.6 mg/dL High 8.6-10.4 [facility] Comment on above: Performed By: #### P TT #### [facility] [place] [address] [place] [address] Operator Receptionist: Vincent Sy MD Chloride [Moles/Vol] 104 mmol/L Normal 98-107 [facility] Comment on above: Performed By: #### P TT #### [address] [address] Operator Receptionist: Vincent Sy MD CO2 [Moles/Vol] 25 mmol/L Normal 20-31 [facility] Comment on above: Performed By: #### P TT #### [facility] [address] [place] [address] Operator Receptionist: Vincent Sy MD Creatinine [Mass/Vol] 1.65 mg/dL High 0.70-1.20 [facility] Comment on above: Performed By: #### P TT #### [facility] [address] [place] [address] Operator Receptionist: Vincent Sy MD Glucose [Mass/Vol] 246 mg/dL High 70-99 [facility] Comment on above: Performed By: #### P TT #### [employer] [address] [place] [phone] Operator Receptionist: Vincent Sy MD Potassium [Moles/Vol] 4.4 mmol/L Normal 3.7-5.3 [facility] Comment on above: Performed By: #### P TT #### [facility] [place] [address] [place] [address] Operator Receptionist: Vincent Sy MD Sodium [Moles/Vol] 136 mmol/L Normal 135-144 [facility] [employer] Comment on above: Performed By: #### P TT #### [employer] [facility] [place], [place] [phone] Operator Receptionist: Vincent Sy MD Urea nitrogen [Mass/Vol] 20 mg/dL Normal 6-20 [facility] Comment on above: Performed By: #### P TT #### [facility] [place] [address] [place] [address] [phone] Operator Receptionist: Vincent Sy MD Cult,Urineon 06-01-2022 Cult,Urine Specimen Description .URINE Culture NO SIGNIFICANT GROWTH Report Status FINAL 05/31/2022 Normal [facility] Comment on above: Performed By: #### P LT #### [facility] [place] [address] [place] [address] [phone] Operator Receptionist: Vincent Sy MD EKG 12 LeadOrdered By: Jenniffer Esquivel on 06-01-2022 Atrial Rate 71 BPM [employer] Work Phone: P [place] 53 degrees [employer] Work Phone: P-R Interval 214 ms [employer] Work Phone: Q-T Interval 378 ms [employer] Work Phone: QRS Duration 94 ms [employer] Work Phone: QTc Calculation (Bazett) 410 ms [employer] Work Phone: R [place] 58 degrees [employer] Work Phone: T [place] 117 degrees [employer] Work Phone: Ventricular Rate 71 BPM [facility] [employer] [employer] Work Phone: [facility] [employer] Work Phone: EKG 12 Leadon 06-01-2022 [facility] STV MUSE [employer] Work Phone: Hemoglobin and Hematocriton 06-01-2022 Hematocrit (Bld) [Volume fraction] 39.3 % Low 40.7 - 50.3 % [facility] Hemoglobin (Bld) [Mass/Vol] 13.0 g/dL 13.0 - 17.0 g/dL [facility] Interpretation and review of laboratory results Abnormal [facility] Hgb/Hcton 06-01-2022 Hematocrit (Bld) [Volume fraction] 39.3 % Low 40.7-50.3 [facility] Comment on above: Performed By: #### P TT #### [employer] [address] [place] [address] [phone] Operator Receptionist: Vincent Sy MD Hemoglobin (Bld) [Mass/Vol] 13.0 g/dL Normal 13.0-17.0 [facility] Comment on above: Performed By: #### P TT #### [employer] [address] [place] [address] [phone] Operator Receptionist: Vincent Sy MD POC Glucose Fingerstickon Glucose [Mass/Vol] 232 mg/dL High 75 - 110 mg/dL [facility] Interpretation and review of laboratory results Abnormal [facility] Glucose [Mass/Vol] 193 mg/dL High 75 - 110 mg/dL [facility] Interpretation and review of laboratory results Abnormal [facility] Glucose [Mass/Vol] 234 mg/dL High 75 - 110 mg/dL [facility] Interpretation and review of laboratory results Abnormal [facility] Glucose [Mass/Vol] 141 mg/dL High 75 - 110 mg/dL [facility] Interpretation and review of laboratory results Abnormal [facility] Platelet Counton 06-01-2022 Platelets (Bld) [#/Vol] 216 10*3/uL Normal 138-453 [facility] Comment on above: Performed By: #### B MP, MG, CBC, PT, PTT #### [employer] [address] [place] [address] Operator Receptionist: Vincent Sy MD Platelets (Bld) [#/Vol] 216 10*3/uL [facility] APTTon 05-31-2022 aPTT Coag (Bld) [Time] 38.6 s High 23.0-36.5 [facility] Comment on above: Result Comment: NOTE : NEW REFERENCE RANGE Performed By: #### P T, GLYHGB, CDP #### [employer] [address] [place], [place] [phone] Operator Receptionist: Vincent Sy MD aPTT Coag (Bld) [Time] 38.6 s High LOIDA [facility] Interpretation and review of laboratory results Abnormal [facility] Arterial Blood Gas, POCon Dwight Test Positive [facility] FIO2 3.0 [facility] HCO3 (Bld) [Moles/Vol] 24.1 mmol/L 21.0 - 28.0 mmol/L [facility] Negative Base Excess, Art 2 0.0 - 2.0 [facility] Oxygen saturation in Blood 98 % 94.0 - 98.0 % [facility] POC pCO2 47.3 [facility] POC pH 7.315 Low 7.350 - 7.450 [facility] POC PO2 115.8 High [facility] Sample Site Right Radial Artery [facility] Basic Metabolic Panelon 05-05 Anion gap [Moles/Vol] 9 mmol/L 9 - 17 mmol/L [facility] Calcium [Mass/Vol] 10.0 mg/dL 8.6 - 10. 4 mg/dL [facility] Chloride [Moles/Vol] 107 mmol/L 98 - 10 7 mmol/L [facility] CO2 [Moles/Vol] 21 mmol/L 20 - 31 mmol/L [facility] Creatinine [Mass/Vol] 1.65 mg/dL High 0.70 - 1.20 mg/dL [facility] GFR/1.73 sq M.predicted MDRD (S/P/Bld) [Vol rate/Area] 55 mL/min/{1.73_m2} Low - PINF [facility] Glucose [Mass/Vol] 125 mg/dL High 70 - 99 mg/dL [facility] Interpretation and review of laboratory results Abnormal [facility] Potassium [Moles/Vol] 4.6 mmol/L 3.7 - 5.3 mmol/L [facility] Sodium [Moles/Vol] 137 mmol/L 135 - 144 mmol/L [facility] Urea nitrogen [Mass/Vol] 23 mg/dL High 6 - 20 mg/dL [facility] Basic Metabolic Profon 05-31 Anion gap [Moles/Vol] 9 mmol/L Normal 9-17 [facility] Comment on above: Performed By: #### P T, GLYHGB, CDP #### [facility] [address] [place] [phone] Operator Receptionist: Vincent Sy MD Calcium [Mass/Vol] 10.0 mg/dL Normal 8.6-10.4 [facility] Comment on above: Performed By: #### P T, GLYHGB, CDP #### [facility] [address] [place] [address] [phone] Operator Receptionist: Vincent Sy MD Chloride [Moles/Vol] 107 mmol/L Normal 98-107 [facility] Comment on above: Performed By: #### P T, GLYHGB, CDP #### [facility] [place] [address] [place] [address] [phone] Operator Receptionist: Vincent Sy MD CO2 [Moles/Vol] 21 mmol/L Normal 20-31 [facility] Comment on above: Performed By: #### P T, GLYHGB, CDP #### [facility] [place] [address] [place] [address] [phone] Operator Receptionist: Vincent Sy MD Creatinine [Mass/Vol] 1.65 mg/dL High 0.70-1.20 [facility] Comment on above: Performed By: #### P T, GLYHGB, CDP #### [facility] [place] [address] [place] [phone] Operator Receptionist: Vincent Sy MD GFR/1.73 sq M.predicted among non-blacks MDRD (S/P/Bld) [Vol rate/Area] 55 mL/min/{1.73_m2} Low >60 [facility] Comment on above: Result Comment: These results are not intended for use in patients <18 years of age. eGFR results are calculated without a race factor using the 2020 CKD-EPI equation. Careful clinical correlation is recommended, particularly when comparing to results calculated using previous equations. The CKD-EPI equation is less accurate in patients with extremes of muscle mass, extra-renal metabolism of creatine, excessive creatine ingestion, or following therapy that affects renal tubular secretion. Performed By: #### P T, GLYHGB, CDP #### [facility] [place] [address] [place] [address] [phone] Operator Receptionist: Vincent Sy MD Glucose [Mass/Vol] 125 mg/dL High 70-99 [facility] Comment on above: Performed By: #### P T, GLYHGB, CDP #### [facility] [place] [address] [place] [address] 6[address] Operator Receptionist: Vincent Sy MD Potassium [Moles/Vol] 4.6 mmol/L Normal 3.7-5.3 [facility] Comment on above: Performed By: #### P T, GLYHGB, CDP #### [facility] [place] [address] [place] [phone] Operator Receptionist: Vincent Sy MD Sodium [Moles/Vol] 137 mmol/L Normal 135-144 [facility] Comment on above: Performed By: #### P T, GLYHGB, CDP #### [employer] [address] [place] [address] Operator Receptionist: Vincent Sy MD Urea nitrogen [Mass/Vol] 23 mg/dL High 6-20 [facility] Comment on above: Performed By: #### P BRITTANEY Marcano, CDP #### [employer] [address] [place] [address] [phone] Operator Receptionist: Vincent Sy MD Hemoglobin A1Con 05-31-2022 Glucose [Mass/Vol] 243 mg/dL Normal [facility] Comment on above: Result Comment: The ADA and AACC recommend providing the estimated average glucose result to permit better patient understanding of their HBA1c result. Performed By: #### P BRITTANEY Marcano, CDP #### [employer] [address] [place] [address] [phone] Operator Receptionist: Vincent Sy MD HbA1c (Bld) [Mass fraction] 10.1 % High 4.0-6.0 [facility] Comment on above: Performed By: #### P RICHIE MarcanoHGHayden, CDP #### [facility] [address] [place] [address] [phone] Operator Receptionist: Vincent Sy MD Hemoglobin A1con 05-31-2022 Average glucose Estimated from glycated hemoglobin (Bld) [Mass/Vol] 243 mg/dL [facility] HbA1c (Bld) [Mass fraction] 10.1 % High 4.0 - 6.0 % [facility] Interpretation and review of laboratory results Abnormal [facility] MRSA DNA Probe, Nasalon 05-05 Interpretation and review of laboratory results Abnormal [facility] MRSA, DNA, Nasal POSITIVE: MRSA DNA detected by nucleic acid amplification. Abnormal NEGATIVE [facility] Specimen Description .NASAL SWAB [facility] MRSA, DNA, Nasalon MRSA, DNA, Nasal POSITIVE: MRSA DNA detected by nucleic acid amplification. Abnormal NEG [facility] Comment on above: Result Comment: Results should be used as an adjunct to nosocomial control efforts to identify patients needing enhanced precautions. The test is not intended to identify patients with staphylococcal infections. Results should not be used to guide or monitor treatment for MRSA infections. Performed By: #### P LT #### [employer] [address] [place] [phone] Operator Receptionist: Vincent Sy MD Specimen Description .NASAL SWAB Normal [facility] Comment on above: Performed By: #### P LT #### [employer] [address] [place] [address] [phone] Operator Receptionist: Vincent Sy MD No Panel Informationon 05-31 Interpretation and review of laboratory results Abnormal [facility] POC Glucose Fingerstickon Glucose [Mass/Vol] 195 mg/dL High 75 - 110 mg/dL [facility] Interpretation and review of laboratory results Abnormal [facility] Glucose [Mass/Vol] 129 mg/dL High 75 - 110 mg/dL [facility] Interpretation and review of laboratory results Abnormal [facility] Glucose [Mass/Vol] 126 mg/dL High 75 - 110 mg/dL [facility] Interpretation and review of laboratory results Abnormal [facility] Glucose [Mass/Vol] 134 mg/dL High 75 - 110 mg/dL [facility] Interpretation and review of laboratory results Abnormal [facility] POCT Glucoseon 05-31-2022 Glucose [Mass/Vol] 144 mg/dL High 74 - 100 mg/dL [facility] Urinalysis, Routineon 2022 Bilirubin, SemiQt,Ur Negative Normal NEG [facility] Comment on above: Performed By: #### P T, GLYHGB, CDP #### [employer] [address] [place] [address] [phone] Operator Receptionist: Vincent Sy MD Blood, Urine Negative Normal NEG [facility] Comment on above: Performed By: #### P T, GLYHGB, CDP #### [employer] [address] [place] [address] [phone] Operator Receptionist: Vincent Sy MD Clarity (U) Clear Normal CLEAR [facility] Comment on above: Performed By: #### P T, GLYHGB, CDP #### [facility] [address] [place] [address] 29652 Operator Receptionist: Vincent Sy MD Color (U) Yellow Normal YEL [facility] Comment on above: Performed By: #### P T, GLYHGB, CDP #### [facility] [address] [place] [address] [phone] Operator Receptionist: Vincent Sy MD Glucose Ql (U) 3+ Abnormal NEG [facility] Comment on above: Performed By: #### P T, GLYHGB, CDP #### [facility] [address] [place] [address] 27541 Operator Receptionist: Vincent Sy MD Ketones Ql (U) Negative Normal NEG [facility] Comment on above: Performed By: #### P T, GLYHGB, CDP #### [address] [address] Operator Receptionist: Vincent Sy MD Leukocyte esterase Test strip Ql (U) Negative Normal NEG [facility] Comment on above: Performed By: #### P T, GLYHGB, CDP #### [address] [address] Operator Receptionist: Vincent Sy MD Nitrite,Ur Negative Normal NEG [facility] Comment on above: Performed By: #### P T, GLYHGB, CDP #### [address] [address] Operator Receptionist: Vincent Sy MD PH,Ur 5.5 Normal 5.0-8.0 [facility] Comment on above: Performed By: #### P T, GLYHGB, CDP #### [facility] [address] [place] [address] [phone] Operator Receptionist: Vincent Sy MD Protein Ql (U) 3+ Abnormal NEG [facility] Comment on above: Performed By: #### P T, GLYHGB, CDP #### [facility] [address] [place] [address] [phone] Operator Receptionist: Vincent Sy MD Spec. [place],Ur 1.019 Normal 1.005-1.030 [facility] Comment on above: Performed By: #### P T, GLYHGB, CDP #### [facility] [address] [place] [address] 59705 Operator Receptionist: Vincent Sy MD Urobilinogen,Ur Normal Normal NORM [facility] Comment on above: Performed By: #### P T, GLYHGB, CDP #### [address] [address] Operator Receptionist: Vincent Sy MD Urinalysis,Microon 3 Casts 2 TO 5 HYALINE Normal 0-8 [facility] Comment on above: Result Comment: Refe rence range defined for non-centrifuged specimen. Performed By: #### P T, GLYHGB, CDP #### [address] [address] Operator Receptionist: Vincent Sy MD Epithelial cells LM Ql (Urine sed) 0 TO 2 Normal 0-5 [facility] Comment on above: Performed By: #### P T, GLYHGB, CDP #### [facility] [address] [place] [address] Operator Receptionist: Vincent Sy MD Urine RBC's 0 TO 2 Normal 0-4 [facility] Comment on above: Result Comment: Refe rence range defined for non-centrifuged specimen. Performed By: #### P T, GLYHGB, CDP #### [address] [address] Operator Receptionist: Vincent Sy MD Urine WBC's 0 TO 2 Normal 0-5 [facility] Comment on above: Performed By: #### P T, GLYHGB, CDP #### [employer] [address] [place] [address] Operator Receptionist: Vincent Sy MD Urine Cultureon 05-31-2022 Microorganism identified Cx Nom (Unsp spec) NO SIGNIFICANT GROWTH [facility] Specimen Description .URINE [facility] APTTon 05-30-2022 aPTT Coag (Bld) [Time] 50.6 s High 23.0-36.5 [facility] Comment on above: Result Comment: NOTE : NEW REFERENCE RANGE Performed By: #### P LT #### [employer] [address] [place] [address] Operator Receptionist: Vincent Sy MD aPTT Coag (Bld) [Time] 50.6 s High LOIDA [facility] Interpretation and review of laboratory results Abnormal [facility] CBC auto differentialon 05-05 Absolute [facility] # 0.09 [facility] Absolute Immature Granulocyte 0.07 [facility] Absolute Lymph # 3.44 [facility] Absolute [place] # 0.96 [facility] RS [facility] Basophils (Bld) [#/Vol] 0.04 10*3/uL [facility] Basophils/100 WBC (Bld) 0 % 0 - 2 % B ON [facility] Eosinophils/100 WBC (Bld) 1 % 1 - 4 % [facility] Hematocrit (Bld) [Volume fraction] 41.2 % 40.7 - 50.3 % [facility] Hemoglobin (Bld) [Mass/Vol] 13.9 g/dL 13.0 - 17.0 g/dL [facility] Immature granulocytes/100 WBC (Bld) 1 % High 0 [facility] Interpretation and review of laboratory results Abnormal [facility] Lymphocytes/100 WBC (Bld) 35 % 24 - 43 % [facility] MCH (RBC) [Entitic mass] 29.8 pg 25.2 - 33.5 pg [facility] MCHC (RBC) [Mass/Vol] 33.7 g/dL 28.4 - 34.8 g/dL [facility] MCV (RBC) [Entitic vol] 88.2 fL 82.6 - 102.9 fL [facility] Monocytes/100 WBC (Bld) 10 % 3 - 12 % B ON [facility] NRBC Automated 0.0 0.0 per 100 WBC [facility] Platelet distribution width (Bld) [Ratio] 13.2 % 11.8 - 14.4 % [facility] Platelet mean volume (Bld) [Entitic vol] 10.6 fL 8.1 - 13.5 fL [facility] Platelets (Bld) [#/Vol] 236 10*3/uL [facility] RBC (Bld) [#/Vol] 4.67 10*6/uL 4.21 - 5.7 7 m/uL [facility] Seg Neutrophils 53 % 36 - 65 % [facility] RS [facility] Segs Absolute 5.25 [facility] WBC (Bld) [#/Vol] 9.9 10*3/uL [facility] CBC with Diffon 05-30-2022 Abs. Basophil 0.04 k/uL Normal 0.00-0.20 [facility] Comment on above: Performed By: #### P BRITTANEY Marcano, CDP #### [employer] [address] [place] [address] Operator Receptionist: Vincent Sy MD Abs.Imm.Granulocyte 0.07 k/uL Normal 0.00-0.30 [facility] Comment on above: Performed By: #### P TBRITTANEY, CDP #### [employer] [address] [place], [place] [phone] Operator Receptionist: Vincent Sy MD Abs.Neutrophil (Seg) 5.25 k/uL Normal 1.50-8.10 [facility] Comment on above: Performed By: #### P T, GLYHGB, CDP #### [facility] [address] [place] [phone] Operator Receptionist: Vincent Sy MD Basophils/100 WBC (Bld) 0 % Normal 0-2 [facility] Comment on above: Performed By: #### P T, GLYHGB, CDP #### [facility] [address] [place] [address] Operator Receptionist: Vincent Sy MD Eosinophils (Bld) [#/Vol] 0.09 10*3/uL Normal 0.00-0.44 [facility] Comment on above: Performed By: #### P T, GLYHGB, CDP #### [facility] [address] [place] [address] Operator Receptionist: Vincent Sy MD Eosinophils/100 WBC (Bld) 1 % Normal 1-4 [facility] Comment on above: Performed By: #### P T, GLYHGB, CDP #### [facility] [address] [place] [address] Operator Receptionist: Vincent Sy MD Erythrocyte distribution width (RBC) [Ratio] 13.2 % Normal 11.8-14.4 [facility] Comment on above: Performed By: #### P T, GLYHGB, CDP #### [facility] [address] [place] [address] Operator Receptionist: Vincent Sy MD Hematocrit (Bld) [Volume fraction] 41.2 % Normal 40.7-50.3 [facility] Comment on above: Performed By: #### P T, GLYHGB, CDP #### [facility] [address] [place] [address] Operator Receptionist: Vincnet Sy MD Hemoglobin (Bld) [Mass/Vol] 13.9 g/dL Normal 13.0-17.0 [facility] Comment on above: Performed By: #### P T, GLYHGB, CDP #### [address] [address] Operator Receptionist: Vincent Sy MD Immature granulocytes/100 WBC (Bld) 1 % High 0 [facility] Comment on above: Performed By: #### P T, GLYHGB, CDP #### [place] [address] Operator Receptionist: Vincent Sy MD Lymphocytes (Bld) [#/Vol] 3.44 10*3/uL Normal 1.10-3.70 [facility] Comment on above: Performed By: #### P T, GLYHGB, CDP #### [place] [address] Operator Receptionist: Vincent Sy MD Lymphocytes/100 WBC (Bld) 35 % Normal 24-43 [facility] Comment on above: Performed By: #### P T, GLYHGB, CDP #### [place] [address] Operator Receptionist: Vincent Sy MD MCH (RBC) [Entitic mass] 29.8 pg Normal 25.2-33.5 [facility] Comment on above: Performed By: #### P T, GLYHGB, CDP #### [place] [address] Operator Receptionist: Vincent Sy MD MCHC (RBC) [Mass/Vol] 33.7 g/dL Normal 28.4-34.8 [facility] Comment on above: Performed By: #### P T, GLYHGB, CDP #### [address] [address] Operator Receptionist: Vincent Sy MD MCV (RBC) [Entitic vol] 88.2 fL Normal 82.6-102.9 [facility] Comment on above: Performed By: #### P T, GLYHGB, CDP #### [address] [address] Operator Receptionist: Vincent Sy MD Monocytes (Bld) [#/Vol] 0.96 10*3/uL Normal 0.10-1.20 [facility] Comment on above: Performed By: #### P T, GLYHGB, CDP #### [address] [address] Operator Receptionist: Vincent Sy MD Monocytes/100 WBC (Bld) 10 % Normal 3-12 [facility] Comment on above: Performed By: #### P T, GLYHGB, CDP #### [address] [address] Operator Receptionist: Vincent Sy MD Neutrophil (Seg) 53 % Normal 36-65 [facility] Comment on above: Performed By: #### P T, GLYHGB, CDP #### [address] [address] Operator Receptionist: Vincent Sy MD NRBC Automated 0.0 per 100 WBC Normal 0.0 [facility] Comment on above: Performed By: #### P T, GLYHGB, CDP #### [address] [address] Operator Receptionist: Vincent Sy MD Platelet mean volume (Bld) [Entitic vol] 10.6 fL Normal 8.1-13.5 [facility] Comment on above: Performed By: #### P T, GLYHGB, CDP #### [address] [address] Operator Receptionist: Vincent Sy MD Platelets (Bld) [#/Vol] 236 10*3/uL Normal 138-453 [facility] Comment on above: Performed By: #### P T, GLYHGB, CDP #### [facility] [address] [place], [place] [phone] Operator Receptionist: Vincent Sy MD RBC (Bld) [#/Vol] 4.67 10*6/uL Normal 4.21-5.77 [facility] Comment on above: Performed By: #### P RAFAL MarcanoB, CDP #### [facility] [address] [place], [place] [phone] Operator Receptionist: Vincent Sy MD WBC (Bld) [#/Vol] 9.9 10*3/uL Normal 3.5-11.3 [facility] Comment on above: Performed By: #### P TBRITTANEY, CDP #### [facility] [address] [place], [place] [phone] Operator Receptionist: Vincent Sy MD Microscopic Urinalysison Casts UA 2 TO 5 HYALINE Reference range defined for non-centrifuged specimen. [facility] Epithelial Cells UA 0 TO 2 [facility] RBC clumps Auto (Urine sed) [#/Area] 0 TO 2 [facility] WBC, UA 0 TO 2 [facility] POC Glucose Fingerstickon Glucose [Mass/Vol] 270 mg/dL High 75 - 110 mg/dL [facility] Interpretation and review of laboratory results Abnormal [facility] Glucose [Mass/Vol] 276 mg/dL High 75 - 110 mg/dL [facility] Interpretation and review of laboratory results Abnormal [facility] Glucose [Mass/Vol] 182 mg/dL High 75 - 110 mg/dL [facility] Interpretation and review of laboratory results Abnormal [facility] Glucose [Mass/Vol] 158 mg/dL High 75 - 110 mg/dL [facility] Interpretation and review of laboratory results Abnormal [facility] PTon 05-30-2022 INR Coag (PPP) [Relative time] 1.0 {INR} Normal [facility] Comment on above: Result Comment: Therapeutic Range: Moderate Anticoagulant Intensity: INR = 2.0-3.0 High Anticoagulant Intensity: INR = 2.5-3.5 Performed By: #### P BRITTANEY Marcano, [place] #### [employer] [address] [place] [address] [phone] Operator Receptionist: Vincent Sy MD PT Coag (PPP) [Time] 13.3 s Normal 11.7-14.9 [facility] Comment on above: Result Comment: NOTE : NEW REFERENCE RANGE Performed By: #### P TBRITTANEY, [place] #### [facility] [address] [place] [address] [phone] Operator Receptionist: Vincent Sy MD Platelet Counton 05-30-2022 Platelets (Bld) [#/Vol] 228 10*3/uL Normal 138-453 [facility] Comment on above: Performed By: #### B MP, MG, CBC, PT, PTT #### [employer] [address] [place] [address] [phone] Operator Receptionist: Vincent Sy MD Platelets (Bld) [#/Vol] 228 10*3/uL [facility] Protime-INRon 05-30-2022 INR Coag (PPP) [Relative time] 1.0 {INR} [facility] PT Coag (PPP) [Time] 13.3 s [facility] Urinalysison 05-30-2022 Bilirubin Urine Negative NEGATIVE [facility] [employer] Color, UA Yellow Yellow [facility] Glucose Auto test strip (U) [Mass/Vol] 3+ Abnormal NEGATIVE [facility] Interpretation and review of laboratory results Abnormal [facility] Ketones (U) [Mass/Vol] Negative NEGATIVE [facility] Leukocyte esterase Auto test strip Ql (U) Negative NEGATIVE [facility] Nitrite Auto test strip Ql (U) Negative NEGATIVE [facility] Protein (U) [Mass/Vol] 5.5 mg/dL 5.0 - 8.0 [facility] Protein (U) [Mass/Vol] 3+ Abnormal NEGATIVE [facility] Specific [place], UA 1.019 1.005 - 1.030 B ON [facility] Turbidity UA Clear Clear [facility] Urine Hgb Negative NEGATIVE [facility] Urobilinogen, Urine Normal Normal [facility] APTTon 05-29-2022 aPTT Coag (Bld) [Time] 58.3 s High 23.0-36.5 [facility] Comment on above: Result Comment: NOTE : NEW REFERENCE RANGE Performed By: #### B MP, MG, CBC, PT, PTT #### [facility] [address] [place] [address] [phone] Operator Receptionist: Vincent Sy MD aPTT Coag (Bld) [Time] 58.3 s High [facility] Interpretation and review of laboratory results Abnormal [facility] Basic Metab w/rfx MGon 05-29 Anion gap [Moles/Vol] 9 mmol/L Normal 9-17 [facility] Comment on above: Performed By: #### B MP, MG, CBC, PT, PTT #### [employer] [address] [place] [phone] Operator Receptionist: Vincent Sy MD Calcium [Mass/Vol] 10.6 mg/dL High 8.6-10.4 [facility] Comment on above: Performed By: #### B MP, MG, CBC, PT, PTT #### [employer] [address] [place] [address] [phone] Operator Receptionist: Vincent Sy MD Chloride [Moles/Vol] 107 mmol/L Normal 98-107 [facility] Comment on above: Performed By: #### B MP, MG, CBC, PT, PTT #### [employer] [address] [place] [id number] Operator Receptionist: Vincent Sy MD CO2 [Moles/Vol] 21 mmol/L Normal 20-31 [facility] Comment on above: Performed By: #### B MP, MG, CBC, PT, PTT #### [address] [id number] Operator Receptionist: Vincent Sy MD Creatinine [Mass/Vol] 1.47 mg/dL High 0.70-1.20 [facility] Comment on above: Performed By: #### B MP, MG, CBC, PT, PTT #### [address] [address] Operator Receptionist: Vincent Sy MD GFR/1.73 sq M.predicted among non-blacks MDRD (S/P/Bld) [Vol rate/Area] mL/min/{1.73_m2} Normal >60 [facility] Comment on above: Result Comment: These results are not intended for use in patients <18 years of age. eGFR results are calculated without a race factor using the 2020 CKD-EPI equation. Careful clinical correlation is recommended, particularly when comparing to results calculated using previous equations. The CKD-EPI equation is less accurate in patients with extremes of muscle mass, extra-renal metabolism of creatine, excessive creatine ingestion, or following therapy that affects renal tubular secretion. Performed By: #### B MP, MG, CBC, PT, PTT #### [address] [phone] Operator Receptionist: Vincent Sy MD Glucose [Mass/Vol] 184 mg/dL High 70-99 [facility] Comment on above: Performed By: #### B MP, MG, CBC, PT, PTT #### [address] [phone] Operator Receptionist: Vincent Sy MD Potassium [Moles/Vol] 4.9 mmol/L Normal 3.7-5.3 [facility] Comment on above: Performed By: #### B MP, MG, CBC, PT, PTT #### [facility] [address] [place], [place] [phone] Operator Receptionist: Vincent Sy MD Sodium [Moles/Vol] 137 mmol/L Normal 135-144 [facility] Comment on above: Performed By: #### B MP, MG, CBC, PT, PTT #### [facility] [address] [place], [place] [phone] Operator Receptionist: Vincent Sy MD Urea nitrogen [Mass/Vol] 15 mg/dL Normal 6-20 [facility] Comment on above: Performed By: #### B MP, MG, CBC, PT, PTT #### [employer] [facility] [place], [place] [phone] Operator Receptionist: Vincent Sy MD Basic Metabolic Panel w/ Ref oscar to MGon 05-29-2022 Anion gap [Moles/Vol] 9 mmol/L 9 - 17 mmol/L [facility] Calcium [Mass/Vol] 10.6 mg/dL High 8.6 - 10. 4 mg/dL [facility] Chloride [Moles/Vol] 107 mmol/L 98 - 10 7 mmol/L [facility] CO2 [Moles/Vol] 21 mmol/L 20 - 31 mmol/L [facility] Creatinine [Mass/Vol] 1.47 mg/dL High 0.70 - 1.20 mg/dL [facility] GFR/1.73 sq M.predicted MDRD (S/P/Bld) [Vol rate/Area] - PINF [facility] Glucose [Mass/Vol] 184 mg/dL High 70 - 99 mg/dL [facility] Interpretation and review of laboratory results Abnormal [facility] Potassium [Moles/Vol] 4.9 mmol/L 3.7 - 5.3 mmol/L [facility] Sodium [Moles/Vol] 137 mmol/L 135 - 144 mmol/L [facility] Urea nitrogen [Mass/Vol] 15 mg/dL 6 - 20 mg/dL [facility] Glucose Fingerstickon Glucose [Mass/Vol] 210 mg/dL High 75 - 110 mg/dL [facility] Interpretation and review of laboratory results Abnormal [facility] Glucose [Mass/Vol] 303 mg/dL High 75 - 110 mg/dL [facility] Interpretation and review of laboratory results Abnormal [facility] Glucose [Mass/Vol] 235 mg/dL High 75 - 110 mg/dL [facility] Interpretation and review of laboratory results Abnormal [facility] Glucose [Mass/Vol] 172 mg/dL High 75 - 110 mg/dL [facility] Interpretation and review of laboratory results Abnormal [facility] APTTon 05-28-2022 aPTT Coag (Bld) [Time] 54.7 s High 23.0-36.5 [facility] Comment on above: Result Comment: NOTE : NEW REFERENCE RANGE Performed By: #### B MP, MG, CBC, PT, PTT #### [employer] [address] [place] [address] [phone] Operator Receptionist: Vincent Sy MD aPTT Coag (Bld) [Time] 54.7 s High LOIDA [facility] Interpretation and review of laboratory results Abnormal [facility] aPTT Coag (Bld) [Time] 60.3 s High 23.0-36.5 [facility] Comment on above: Result Comment: NOTE : NEW REFERENCE RANGE Performed By: #### P LT #### [employer] [address] [place] [id number] Operator Receptionist: Vincent Sy MD aPTT Coag (Bld) [Time] 60.3 s High LOIDA [facility] Interpretation and review of laboratory results Abnormal [facility] aPTT Coag (Bld) [Time] 45.5 s High 23.0-36.5 [facility] Comment on above: Result Comment: NOTE : NEW REFERENCE RANGE Performed By: #### P T, GLYHGB, CDP #### [address] [address] Operator Receptionist: Vincent Sy MD Basic Metab w/rfx MGon 05-28 Anion gap [Moles/Vol] 10 mmol/L Normal 9-17 [facility] Comment on above: Performed By: #### P LT #### [address] [address] Operator Receptionist: Vincent Sy MD Calcium [Mass/Vol] 10.0 mg/dL Normal 8.6-10.4 [facility] Comment on above: Performed By: #### P LT #### [address] [address] Operator Receptionist: Vincent Sy MD Chloride [Moles/Vol] 107 mmol/L Normal 98-107 [facility] Comment on above: Performed By: #### P LT #### [address] [address] Operator Receptionist: Vincent Sy MD CO2 [Moles/Vol] 19 mmol/L Low 20-31 [facility] Comment on above: Performed By: #### P LT #### [address] [address] Operator Receptionist: Vincent Sy MD Creatinine [Mass/Vol] 1.41 mg/dL High 0.70-1.20 [facility] Comment on above: Performed By: #### P LT #### [address] [address] Operator Receptionist: Vincent Sy MD GFR/1.73 sq M.predicted among non-blacks MDRD (S/P/Bld) [Vol rate/Area] mL/min/{1.73_m2} Normal >60 [facility] Comment on above: Result Comment: These results are not intended for use in patients <18 years of age. eGFR results are calculated without a race factor using the 2020 CKD-EPI equation. Careful clinical correlation is recommended, particularly when comparing to results calculated using previous equations. The CKD-EPI equation is less accurate in patients with extremes of muscle mass, extra-renal metabolism of creatine, excessive creatine ingestion, or following therapy that affects renal tubular secretion. Performed By: #### P LT #### [address] [address] Operator Receptionist: Vincent Sy MD Glucose [Mass/Vol] 163 mg/dL High 70-99 [facility] Comment on above: Performed By: #### P LT #### [address] [address] Operator Receptionist: Vincent Sy MD Potassium [Moles/Vol] 4.4 mmol/L Normal 3.7-5.3 [facility] Comment on above: Performed By: #### P LT #### [address] [address] Operator Receptionist: Vincent Sy MD Sodium [Moles/Vol] 136 mmol/L Normal 135-144 [facility] Comment on above: Performed By: #### P LT #### [address] [address] Operator Receptionist: Vincent Sy MD Urea nitrogen [Mass/Vol] 16 mg/dL Normal 6-20 [facility] Comment on above: Performed By: #### P LT #### [address] [address] Operator Receptionist: Vincent Sy MD Basic Metabolic Panel w/ Ref oscar to [facility] 05-28-2022 Anion gap [Moles/Vol] 10 mmol/L 9 - 17 mmol/L [facility] Calcium [Mass/Vol] 10.0 mg/dL 8.6 - 10. 4 mg/dL [facility] Chloride [Moles/Vol] 107 mmol/L 98 - 10 7 mmol/L [facility] CO2 [Moles/Vol] 19 mmol/L Low 20 - 31 mmol/L [facility] Creatinine [Mass/Vol] 1.41 mg/dL High 0.70 - 1.20 mg/dL [facility] GFR/1.73 sq M.predicted MDRD (S/P/Bld) [Vol rate/Area] - PINF [facility] Glucose [Mass/Vol] 163 mg/dL High 70 - 99 mg/dL [facility] Interpretation and review of laboratory results Abnormal [facility] Potassium [Moles/Vol] 4.4 mmol/L 3.7 - 5.3 mmol/L [facility] Sodium [Moles/Vol] 136 mmol/L 135 - 144 mmol/L [facility] Urea nitrogen [Mass/Vol] 16 mg/dL 6 - 20 mg/dL [facility] Glucose Fingerstickon Glucose [Mass/Vol] 212 mg/dL High 75 - 110 mg/dL [facility] Interpretation and review of laboratory results Abnormal [facility] Glucose [Mass/Vol] 254 mg/dL High 75 - 110 mg/dL [facility] Interpretation and review of laboratory results Abnormal [facility] Glucose [Mass/Vol] 231 mg/dL High 75 - 110 mg/dL [facility] Interpretation and review of laboratory results Abnormal [facility] Glucose [Mass/Vol] 163 mg/dL High 75 - 110 mg/dL [facility] Interpretation and review of laboratory results Abnormal [facility] Platelet Counton 05-28-2022 Platelets (Bld) [#/Vol] 201 10*3/uL Normal 138-453 [facility] Comment on above: Performed By: #### P LT #### [employer] [facility] [place] [address] Operator Receptionist: Vincent Sy MD Platelets (Bld) [#/Vol] 201 10*3/uL [facility] APTTon 05-27-2022 aPTT Coag (Bld) [Time] 45.5 s High LOIDA N [facility] Interpretation and review of laboratory results Abnormal [facility] aPTT Coag (Bld) [Time] 53.5 s High 23.0-36.5 [facility] Comment on above: Result Comment: NOTE : NEW REFERENCE RANGE Performed By: #### P T, GLYHGB, CDP #### [employer] [address] [place] [id number] Operator Receptionist: Vincent Sy MD aPTT Coag (Bld) [Time] 53.5 s High LOIDA N [facility] Interpretation and review of laboratory results Abnormal [facility] aPTT Coag (Bld) [Time] 102.9 s Critically high 23.0-36. 5 [facility] Comment on above: Result Comment: NOTE : NEW REFERENCE RANGE Performed By: #### B MP, MG, CBC, PT, PTT #### [employer] [address] [place] [id number] Operator Receptionist: Vincent Sy MD aPTT Coag (Bld) [Time] 102.9 s Critically high [facility] Interpretation and review of laboratory results Abnormal [facility] aPTT Coag (Bld) [Time] 40.0 s High 23.0-36.5 [facility] Comment on above: Result Comment: NOTE : NEW REFERENCE RANGE Performed By: #### B MP, MG, CBC, PT, PTT #### [employer] [address] [place] [address] [phone] Operator Receptionist: Vincent Sy MD Basic Metab w/rfx MGon 05-27 Anion gap [Moles/Vol] 8 mmol/L Low 9-17 [facility] Comment on above: Performed By: #### B MP, MG, CBC, PT, PTT #### [employer] [address] [place] [address] Operator Receptionist: Vincent Sy MD Calcium [Mass/Vol] 9.5 mg/dL Normal 8.6-10.4 [facility] Comment on above: Performed By: #### B MP, MG, CBC, PT, PTT #### [facility] [address] [place] [address] Operator Receptionist: Vincent Sy MD Chloride [Moles/Vol] 108 mmol/L High 98-107 [facility] Comment on above: Performed By: #### B MP, MG, CBC, PT, PTT #### [address] [address] Operator Receptionist: Vincent Sy MD CO2 [Moles/Vol] 21 mmol/L Normal 20-31 [facility] Comment on above: Performed By: #### B MP, MG, CBC, PT, PTT #### [facility] [address] [place] [address] Operator Receptionist: Vincent Sy MD Creatinine [Mass/Vol] 1.56 mg/dL High 0.70-1.20 [facility] Comment on above: Performed By: #### B MP, MG, CBC, PT, PTT #### [facility] [address] [place] [address] Operator Receptionist: Vincent Sy MD GFR/1.73 sq M.predicted among non-blacks MDRD (S/P/Bld) [Vol rate/Area] 58 mL/min/{1.73_m2} Low >60 [facility] Comment on above: Result Comment: These results are not intended for use in patients <18 years of age. eGFR results are calculated without a race factor using the 2020 CKD-EPI equation. Careful clinical correlation is recommended, particularly when comparing to results calculated using previous equations. The CKD-EPI equation is less accurate in patients with extremes of muscle mass, extra-renal metabolism of creatine, excessive creatine ingestion, or following therapy that affects renal tubular secretion. Performed By: #### B MP, MG, CBC, PT, PTT #### [facility] [address] [place] [address] Operator Receptionist: Vincent Sy MD Glucose [Mass/Vol] 209 mg/dL High 70-99 [facility] Comment on above: Performed By: #### B MP, MG, CBC, PT, PTT #### [facility] [address] [place] [address] Operator Receptionist: Vincent Sy MD Potassium [Moles/Vol] 4.3 mmol/L Normal 3.7-5.3 [facility] Comment on above: Performed By: #### B MP, MG, CBC, PT, PTT #### [facility] [address] [place] [address]69 Operator Receptionist: Vincent Sy MD Sodium [Moles/Vol] 137 mmol/L Normal 135-144 [facility] Comment on above: Performed By: #### B MP, MG, CBC, PT, PTT #### [facility] [address] [place] [address] Operator Receptionist: Vincent Sy MD Urea nitrogen [Mass/Vol] 19 mg/dL Normal 6-20 [facility] Comment on above: Performed By: #### B MP, MG, CBC, PT, PTT #### [facility] [address] [place] [address] Operator Receptionist: Vincent Sy MD Basic Metabolic Panel w/ Ref oscar to MGon 05-27-2022 Anion gap [Moles/Vol] 8 mmol/L Low 9 - 17 mmol/L [facility] Calcium [Mass/Vol] 9.5 mg/dL 8.6 - 10. 4 mg/dL [facility] Chloride [Moles/Vol] 108 mmol/L High 98 - 10 7 mmol/L [facility] CO2 [Moles/Vol] 21 mmol/L 20 - 31 mmol/L [facility] Creatinine [Mass/Vol] 1.56 mg/dL High 0.70 - 1.20 mg/dL [facility] GFR/1.73 sq M.predicted MDRD (S/P/Bld) [Vol rate/Area] 58 mL/min/{1.73_m2} Low - PINF [facility] Glucose [Mass/Vol] 209 mg/dL High 70 - 99 mg/dL [facility] Interpretation and review of laboratory results Abnormal [facility] Potassium [Moles/Vol] 4.3 mmol/L 3.7 - 5.3 mmol/L [facility] Sodium [Moles/Vol] 137 mmol/L 135 - 144 mmol/L [facility] Urea nitrogen [Mass/Vol] 19 mg/dL 6 - 20 mg/dL [facility] Calcium, [employer] 05-27-2022 Calcium [Moles/Vol] 1.40 mmol/L High 1.13-1.33 [facility] Comment on above: Performed By: #### B MP, MG, CBC, PT, PTT #### [facility] [address] [place] [address] Operator Receptionist: Vincent Sy MD Calcium, Ionizedon Calcium.ionized (Bld) [Moles/Vol] 1.4 mmol/L High 1.13 - 1.33 mmol/L [facility] Interpretation and review of laboratory results Abnormal [facility] Glucose Fingerstickon Glucose [Mass/Vol] 276 mg/dL High 75 - 110 mg/dL [facility] Interpretation and review of laboratory results Abnormal [facility] Glucose [Mass/Vol] 215 mg/dL High 75 - 110 mg/dL [facility] Interpretation and review of laboratory results Abnormal [facility] Glucose [Mass/Vol] 208 mg/dL High 75 - 110 mg/dL [facility] Interpretation and review of laboratory results Abnormal [facility] Glucose [Mass/Vol] 192 mg/dL High 75 - 110 mg/dL [facility] Interpretation and review of laboratory results Abnormal [facility] VL DUP CAROTID BILATERALon 0 05-27-2022 [facility] STV CPACS [facility] Work Phone: VL DUP CAROTID BILATERALOrde red By: Sony Toro on 05-27-2022 [employer] [facility] Work Phone: VL DUP UPPER EXTREMITY ARTER IES BILATERALon 05-27-2022 PN STV CPACS [facility] Work Phone: [facility]BL[facility] Work Phone: VL VEIN MAPPING LOWER BILATE RALon 05-27-2022 [facility] STV CPACAVALIER [facility]PITALCallistoTV [facility] Work Phone: [facility] Work Phone: APTTon 05-26-2022 aPTT Coag (Bld) [Time] 40.0 s High LOIDA N [facility] Interpretation and review of laboratory results Abnormal [facility] TalkSessionIN[facility] aPTT Coag (Bld) [Time] 52.9 s High 23.0-36.5 [facility] Comment on above: Result Comment: NOTE : NEW REFERENCE RANGE Performed By: #### P TT #### [employer] [address] [place] [id number] Operator Receptionist: Vincent Sy MD aPTT Coag (Bld) [Time] 52.9 s High LOIDA N [facility] Interpretation and review of laboratory results Abnormal [facility] aPTT Coag (Bld) [Time] 62.9 s High 23.0-36.5 [facility] Comment on above: Result Comment: NOTE : NEW REFERENCE RANGE Performed By: #### P T, GLYHGB, CDP #### [employer] [address] [place] [address] Operator Receptionist: Vincent Sy MD aPTT Coag (Bld) [Time] 62.9 s High LO[place] N [facility] Interpretation and review of laboratory results Abnormal [facility] BON [facility] Basic Metab w/rfx MGon 05-26 Anion gap [Moles/Vol] 9 mmol/L Normal 9-17 [facility] Comment on above: Performed By: #### P T, GLYHGB, CDP #### [facility] [address] [place] [address] Operator Receptionist: Vincent Sy MD Calcium [Mass/Vol] 9.4 mg/dL Normal 8.6-10.4 [facility] Comment on above: Performed By: #### P T, GLYHGB, CDP #### [facility] [address] [place] [address] Operator Receptionist: Vincent Sy MD Chloride [Moles/Vol] 109 mmol/L High 98-107 [facility] Comment on above: Performed By: #### P T, GLYHGB, CDP #### [facility] [place] [address] [place] [address] Operator Receptionist: Vincent Sy MD CO2 [Moles/Vol] 23 mmol/L Normal 20-31 [facility] Comment on above: Performed By: #### P T, GLYHGB, CDP #### [facility] [place] [address] [place] [address] Operator Receptionist: Vincent Sy MD Creatinine [Mass/Vol] 1.55 mg/dL High 0.70-1.20 [facility] Comment on above: Performed By: #### P T, GLYHGB, CDP #### [facility] [address] [place] [address]356 Operator Receptionist: Vincent Sy MD GFR/1.73 sq M.predicted among non-blacks MDRD (S/P/Bld) [Vol rate/Area] 59 mL/min/{1.73_m2} Low >60 [facility] Comment on above: Result Comment: These results are not intended for use in patients <18 years of age. eGFR results are calculated without a race factor using the 2020 CKD-EPI equation. Careful clinical correlation is recommended, particularly when comparing to results calculated using previous equations. The CKD-EPI equation is less accurate in patients with extremes of muscle mass, extra-renal metabolism of creatine, excessive creatine ingestion, or following therapy that affects renal tubular secretion. Performed By: #### P T, GLYHGB, CDP #### [facility] [address] [place] [address] Operator Receptionist: Vincent Sy MD Glucose [Mass/Vol] 212 mg/dL High 70-99 [facility] Comment on above: Performed By: #### P T, GLYHGB, CDP #### [facility] [address] [place] [address] Operator Receptionist: Vincent Sy MD Potassium [Moles/Vol] 4.3 mmol/L Normal 3.7-5.3 [facility] Comment on above: Performed By: #### P T, GLYHGB, CDP #### [facility] [address] [place] [address] Operator Receptionist: Vincent Sy MD Sodium [Moles/Vol] 141 mmol/L Normal 135-144 [facility] Comment on above: Performed By: #### P T, GLYHGB, CDP #### [facility] [address] [place] [address] 60962 Operator Receptionist: Vincent Sy MD Urea nitrogen [Mass/Vol] 18 mg/dL Normal 6-20 [facility] Comment on above: Performed By: #### P T, GLYHGB, CDP #### [facility] [address] [place] [address] Operator Receptionist: Vincent Sy MD Basic Metabolic Panel w/ Ref oscar to MGon 05-26-2022 Anion gap [Moles/Vol] 9 mmol/L 9 - 17 mmol/L [facility] Calcium [Mass/Vol] 9.4 mg/dL 8.6 - 10. 4 mg/dL [facility] Chloride [Moles/Vol] 109 mmol/L High 98 - 10 7 mmol/L [facility] CO2 [Moles/Vol] 23 mmol/L 20 - 31 mmol/L [facility] Creatinine [Mass/Vol] 1.55 mg/dL High 0.70 - 1.20 mg/dL [facility] GFR/1.73 sq M.predicted MDRD (S/P/Bld) [Vol rate/Area] 59 mL/min/{1.73_m2} Low - PINF [facility] Glucose [Mass/Vol] 212 mg/dL High 70 - 99 mg/dL [facility] Interpretation and review of laboratory results Abnormal [facility] Potassium [Moles/Vol] 4.3 mmol/L 3.7 - 5.3 mmol/L [facility] Sodium [Moles/Vol] 141 mmol/L 135 - 144 mmol/L [facility] Urea nitrogen [Mass/Vol] 18 mg/dL 6 - 20 mg/dL [facility] Catheterization and angiogra phy procedure details panelon 05-26-2022 [facility] [address] CPACS [facility] Work Phone: [facility] Work Phone: [facility] Work Phone: POC Glucose Fingerstickon Glucose [Mass/Vol] 264 mg/dL High 75 - 110 mg/dL [facility] Interpretation and review of laboratory results Abnormal [facility] Glucose [Mass/Vol] 165 mg/dL High 75 - 110 mg/dL [facility] Interpretation and review of laboratory results Abnormal [facility] Glucose [Mass/Vol] 211 mg/dL High 75 - 110 mg/dL [facility] Interpretation and review of laboratory results Abnormal [facility] Glucose [Mass/Vol] 200 mg/dL High 75 - 110 mg/dL [facility] Interpretation and review of laboratory results Abnormal [facility] APTTon 05-25-2022 aPTT Coag (Bld) [Time] 67.4 s High 23.0-36.5 [facility] Comment on above: Result Comment: NOTE : NEW REFERENCE RANGE Performed By: #### B MP, MG, CBC, PT, PTT #### [address] [address] Operator Receptionist: Vincent Sy MD aPTT Coag (Bld) [Time] 67.4 s High LOIDA [facility] Interpretation and review of laboratory results Abnormal [facility] Basic Metab w/rfx MGon 05-25 Anion gap [Moles/Vol] 9 mmol/L Normal 9-17 [facility] Comment on above: Performed By: #### B MP, MG, CBC, PT, PTT #### [facility] [address] [place] [address] Operator Receptionist: Vincent Sy MD Calcium [Mass/Vol] 9.6 mg/dL Normal 8.6-10.4 [facility] Comment on above: Performed By: #### B MP, MG, CBC, PT, PTT #### [facility] [address] [place] [address]014 Operator Receptionist: Vincent Sy MD Chloride [Moles/Vol] 102 mmol/L Normal 98-107 [facility] Comment on above: Performed By: #### B MP, MG, CBC, PT, PTT #### [facility] [facility] [address] [place] [address] 62073 Operator Receptionist: Vincent Sy MD CO2 [Moles/Vol] 23 mmol/L Normal 20-31 [facility] Comment on above: Performed By: #### B MP, MG, CBC, PT, PTT #### [facility] [address] [place] [address] 43608 Operator Receptionist: Vincent Sy MD Creatinine [Mass/Vol] 1.70 mg/dL High 0.70-1.20 [facility] Comment on above: Performed By: #### B MP, MG, CBC, PT, PTT #### [facility] [address] [place] [address] [id number] Operator Receptionist: Vincent Sy MD GFR/1.73 sq M.predicted among non-blacks MDRD (S/P/Bld) [Vol rate/Area] 53 mL/min/{1.73_m2} Low >60 [facility] Comment on above: Result Comment: These results are not intended for use in patients <18 years of age. eGFR results are calculated without a race factor using the 2020 CKD-EPI equation. Careful clinical correlation is recommended, particularly when comparing to results calculated using previous equations. The CKD-EPI equation is less accurate in patients with extremes of muscle mass, extra-renal metabolism of creatine, excessive creatine ingestion, or following therapy that affects renal tubular secretion. Performed By: #### B MP, MG, CBC, PT, PTT #### [facility] [address] [place] [address] Operator Receptionist: Vincent Sy MD Glucose [Mass/Vol] 287 mg/dL High 70-99 [facility] Comment on above: Performed By: #### B MP, MG, CBC, PT, PTT #### [facility] [address] [place] [address] 80781 Operator Receptionist: Vincent Sy MD Potassium [Moles/Vol] 3.9 mmol/L Normal 3.7-5.3 [facility] Comment on above: Performed By: #### B MP, MG, CBC, PT, PTT #### [facility] [address] [place] [address] [id number] Operator Receptionist: Vincent Sy MD Sodium [Moles/Vol] 134 mmol/L Low 135-144 [facility] Comment on above: Performed By: #### B MP, MG, CBC, PT, PTT #### [facility] [address] [place], [place] [phone] Operator Receptionist: Vincent Sy MD Urea nitrogen [Mass/Vol] 25 mg/dL High 6-20 [facility] Comment on above: Performed By: #### B MP, MG, CBC, PT, PTT #### [facility] [address] [place] [address] Operator Receptionist: Vincent Sy MD Basic Metabolic Panel w/ Ref oscar to MGon 05-25-2022 Anion gap [Moles/Vol] 9 mmol/L 9 - 17 mmol/L [facility] Calcium [Mass/Vol] 9.6 mg/dL 8.6 - 10. 4 mg/dL [facility] Chloride [Moles/Vol] 102 mmol/L 98 - 10 7 mmol/L [facility] CO2 [Moles/Vol] 23 mmol/L 20 - 31 mmol/L [facility] Creatinine [Mass/Vol] 1.7 mg/dL High 0.70 - 1.20 mg/dL [facility] GFR/1.73 sq M.predicted MDRD (S/P/Bld) [Vol rate/Area] 53 mL/min/{1.73_m2} Low - PINF [facility] Glucose [Mass/Vol] 287 mg/dL High 70 - 99 mg/dL [facility] Interpretation and review of laboratory results Abnormal [facility] Potassium [Moles/Vol] 3.9 mmol/L 3.7 - 5.3 mmol/L [facility] Sodium [Moles/Vol] 134 mmol/L Low 135 - 144 mmol/L [facility] Urea nitrogen [Mass/Vol] 25 mg/dL High 6 - 20 mg/dL [facility] CBC with Auto Differentialon 05-25-2022 Absolute Eos # 0.21 [facility] Absolute Immature Granulocyte 0.05 [facility] Absolute Lymph # 4.07 High [facility] Absolute [place] # 0.62 [facility] Basophils (Bld) [#/Vol] 0.03 10*3/uL [facility] Basophils/100 WBC (Bld) 0 % 0 - 2 % B ON [facility] Eosinophils/100 WBC (Bld) 3 % 1 - 4 % [facility] Hematocrit (Bld) [Volume fraction] 37.5 % Low 40.7 - 50.3 % [facility] Hemoglobin (Bld) [Mass/Vol] 12.8 g/dL Low 13.0 - 17.0 g/dL [facility] Immature granulocytes/100 WBC (Bld) 1 % High 0 [facility] Interpretation and review of laboratory results Abnormal [facility] Lymphocytes/100 WBC (Bld) 47 % High 24 - 43 % [facility] MCH (RBC) [Entitic mass] 29.6 pg 25.2 - 33.5 pg [facility] MCHC (RBC) [Mass/Vol] 34.1 g/dL 28.4 - 34.8 g/dL [facility] MCV (RBC) [Entitic vol] 86.8 fL 82.6 - 102.9 fL [facility] Monocytes/100 WBC (Bld) 7 % 3 - 12 % B ON [facility] NRBC Automated 0.0 0.0 per 100 WBC [facility] Platelet distribution width (Bld) [Ratio] 13.2 % 11.8 - 14.4 % [facility] Platelet mean volume (Bld) [Entitic vol] 11.1 fL 8.1 - 13.5 fL [facility] Platelets (Bld) [#/Vol] 189 10*3/uL [facility] RBC (Bld) [#/Vol] 4.32 10*6/uL 4.21 - 5.7 7 m/uL [facility] Seg Neutrophils 42 % 36 - 65 % [facility] Segs Absolute 3.58 [facility] WBC (Bld) [#/Vol] 8.6 10*3/uL [facility] CBC with Diffon 05-25-2022 Abs. Basophil 0.03 k/uL Normal 0.00-0.20 [facility] Comment on above: Performed By: #### B MP, MG, CBC, PT, PTT #### [address] [address] Operator Receptionist: Vincent Sy MD Abs.Imm.Granulocyte 0.05 k/uL Normal 0.00-0.30 [facility] Comment on above: Performed By: #### B MP, MG, CBC, PT, PTT #### [place] [address] Operator Receptionist: Vincent Sy MD Abs.Neutrophil (Seg) 3.58 k/uL Normal 1.50-8.10 [facility] Comment on above: Performed By: #### B MP, MG, CBC, PT, PTT #### [place] [address] Operator Receptionist: Vincent Sy MD Basophils/100 WBC (Bld) 0 % Normal 0-2 [facility] Comment on above: Performed By: #### B MP, MG, CBC, PT, PTT #### [place] [address] Operator Receptionist: Vincent Sy MD Eosinophils (Bld) [#/Vol] 0.21 10*3/uL Normal 0.00-0.44 [facility] Comment on above: Performed By: #### B MP, MG, CBC, PT, PTT #### [place] [address] Operator Receptionist: Vincent Sy MD Eosinophils/100 WBC (Bld) 3 % Normal 1-4 [facility] Comment on above: Performed By: #### B MP, MG, CBC, PT, PTT #### [address] [address] Operator Receptionist: Vincent Sy MD Erythrocyte distribution width (RBC) [Ratio] 13.2 % Normal 11.8-14.4 [facility] Comment on above: Performed By: #### B MP, MG, CBC, PT, PTT #### [address] [address] Operator Receptionist: Vincent Sy MD Hematocrit (Bld) [Volume fraction] 37.5 % Low 40.7-50.3 [facility] Comment on above: Performed By: #### B MP, MG, CBC, PT, PTT #### [facility] [address] [place] [address] 37744 Operator Receptionist: Vincent Sy MD Hemoglobin (Bld) [Mass/Vol] 12.8 g/dL Low 13.0-17.0 [facility] Comment on above: Performed By: #### B MP, MG, CBC, PT, PTT #### [address] [address] Operator Receptionist: Vincent Sy MD Immature granulocytes/100 WBC (Bld) 1 % High 0 [facility] Comment on above: Performed By: #### B MP, MG, CBC, PT, PTT #### [facility] [address] [place] [address] 94039 Operator Receptionist: Vincent Sy MD Lymphocytes (Bld) [#/Vol] 4.07 10*3/uL High 1.10-3.70 [facility] Comment on above: Performed By: #### B MP, MG, CBC, PT, PTT #### [facility] [address] [place] [address] 51077 Operator Receptionist: Vincent Sy MD Lymphocytes/100 WBC (Bld) 47 % High 24-43 [facility] Comment on above: Performed By: #### B MP, MG, CBC, PT, PTT #### [facility] [address] [place] [address] 59986 Operator Receptionist: Vincent Sy MD MCH (RBC) [Entitic mass] 29.6 pg Normal 25.2-33.5 [facility] Comment on above: Performed By: #### B MP, MG, CBC, PT, PTT #### [address] [address] Operator Receptionist: Vincent Sy MD MCHC (RBC) [Mass/Vol] 34.1 g/dL Normal 28.4-34.8 [facility] Comment on above: Performed By: #### B MP, MG, CBC, PT, PTT #### [address] [address] Operator Receptionist: Vincent Sy MD MCV (RBC) [Entitic vol] 86.8 fL Normal 82.6-102.9 [facility] Comment on above: Performed By: #### B MP, MG, CBC, PT, PTT #### [place] [address] Operator Receptionist: Vincent Sy MD Monocytes (Bld) [#/Vol] 0.62 10*3/uL Normal 0.10-1.20 [facility] Comment on above: Performed By: #### B MP, MG, CBC, PT, PTT #### [address] [address] Operator Receptionist: Vincent Sy MD Monocytes/100 WBC (Bld) 7 % Normal 3-12 M [facility] Comment on above: Performed By: #### B MP, MG, CBC, PT, PTT #### [address] [address] Operator Receptionist: Vincent Sy MD Neutrophil (Seg) 42 % Normal 36-65 [facility] Comment on above: Performed By: #### B MP, MG, CBC, PT, PTT #### [address] [address] Operator Receptionist: Vincent Sy MD NRBC Automated 0.0 per 100 WBC Normal 0.0 [facility] Comment on above: Performed By: #### B MP, MG, CBC, PT, PTT #### [facility] [address] [place] [address] 92296 Operator Receptionist: Vincent yS MD Platelet mean volume (Bld) [Entitic vol] 11.1 fL Normal 8.1-13.5 [facility] Comment on above: Performed By: #### B MP, MG, CBC, PT, PTT #### [facility] [address] [place] [address] 50064 Operator Receptionist: Vincent Sy MD Platelets (Bld) [#/Vol] 189 10*3/uL Normal 138-453 [facility] Comment on above: Performed By: #### B MP, MG, CBC, PT, PTT #### [facility] [address] [place] [address] 08975 Operator Receptionist: Vincent Sy MD RBC (Bld) [#/Vol] 4.32 10*6/uL Normal 4.21-5.77 [facility] Comment on above: Performed By: #### B MP, MG, CBC, PT, PTT #### [facility] [address] [place] [address] 01575 Operator Receptionist: Vincent Sy MD WBC (Bld) [#/Vol] 8.6 10*3/uL Normal 3.5-11.3 [facility] Comment on above: Performed By: #### B MP, MG, CBC, PT, PTT #### [facility] [address] [place] [address] 72296 Operator Receptionist: Vincent Sy MD ECHO Complete 2D W Doppler W ColorOrdered By: Jared Nation on 05-25-2022 Left ventricular Ejection fraction 68 [facility] [employer] Phone: LVEF MODALITY ECHO [employer] Phone: [facility] [employer] Phone: ECHO Complete 2D W Doppler W Coloron 05-25-2022 MH LVEF [facility] [employer] Work Phone: POC Glucose Finger[employer]on Glucose [Mass/Vol] 324 mg/dL High 75 - 110 mg/dL [facility] [employer] Interpretation and review of laboratory results Abnormal [facility] Glucose [Mass/Vol] 328 mg/dL High 75 - 110 mg/dL [facility] Interpretation and review of laboratory results Abnormal [facility] Glucose [Mass/Vol] 266 mg/dL High 75 - 110 mg/dL [facility] Interpretation and review of laboratory results Abnormal [facility] Glucose [Mass/Vol] 253 mg/dL High 75 - 110 mg/dL [facility] Interpretation and review of laboratory results Abnormal [facility] APTTon 05-24-2022 aPTT Coag (Bld) [Time] 53.5 s High 20.5-30.5 [facility] Comment on above: Result Comment: IV Heparin Therapy Range: 48.6-77.8 Performed By: #### P T, GLYHGB, CDP #### [employer] [address] [place] [address] 43[address] Operator Receptionist: Vincent Sy MD aPTT Coag (Bld) [Time] 53.5 s High [facility] Interpretation and review of laboratory results Abnormal [facility] aPTT Coag (Bld) [Time] 57.9 s High 20.5-30.5 [facility] Comment on above: Result Comment: IV Heparin Therapy Range: 48.6-77.8 Performed By: #### B MP, MG, CBC, PT, PTT #### [employer] [address] [place] [address] Operator Receptionist: Vincent Sy MD aPTT Coag (Bld) [Time] 40.4 s High 20.5-30.5 [facility] Comment on above: Result Comment: IV Heparin Therapy Range: 48.6-77.8 Performed By: #### P T, GLYHGB, CDP #### [address] [address] Operator Receptionist: Vincent Sy MD Basic Metab w/rfx MGon 05-24 Anion gap [Moles/Vol] 11 mmol/L Normal 9-17 [facility] Comment on above: Performed By: #### B MP, MG, CBC, PT, PTT #### [facility] [address] [place] [address] 396[address] Operator Receptionist: Vincent Sy MD Calcium [Mass/Vol] 10.0 mg/dL Normal 8.6-10.4 [facility] Comment on above: Performed By: #### B MP, MG, CBC, PT, PTT #### [facility] [address] [place] [address] 99941 Operator Receptionist: Vincent Sy MD Chloride [Moles/Vol] 99 mmol/L Normal 98-107 [facility] Comment on above: Performed By: #### B MP, MG, CBC, PT, PTT #### [facility] [address] [place] [address] 06759 Operator Receptionist: Vincent Sy MD CO2 [Moles/Vol] 22 mmol/L Normal 20-31 [facility] Comment on above: Performed By: #### B MP, MG, CBC, PT, PTT #### [facility] [address] [place] [address] Operator Receptionist: Vincent Sy MD Creatinine [Mass/Vol] 2.04 mg/dL High 0.70-1.20 [facility] Comment on above: Performed By: #### B MP, MG, CBC, PT, PTT #### [facility] [address] [place] [address] 41053 Operator Receptionist: Vincent Sy MD GFR/1.73 sq M.predicted among non-blacks MDRD (S/P/Bld) [Vol rate/Area] 42 mL/min/{1.73_m2} Low >60 [facility] Comment on above: Result Comment: These results are not intended for use in patients <18 years of age. eGFR results are calculated without a race factor using the 2020 CKD-EPI equation. Careful clinical correlation is recommended, particularly when comparing to results calculated using previous equations. The CKD-EPI equation is less accurate in patients with extremes of muscle mass, extra-renal metabolism of creatine, excessive creatine ingestion, or following therapy that affects renal tubular secretion. Performed By: #### B MP, MG, CBC, PT, PTT #### [facility] [place] [address] [place] [address] Operator Receptionist: Vincent Sy MD Glucose [Mass/Vol] 391 mg/dL High 70-99 [facility] Comment on above: Performed By: #### B MP, MG, CBC, PT, PTT #### [employer] [address] [place] [address] 106[address] Operator Receptionist: Vincent Sy MD Potassium [Moles/Vol] 4.1 mmol/L Normal 3.7-5.3 [facility] Comment on above: Performed By: #### B MP, MG, CBC, PT, PTT #### [employer] [address] [place] [address] Operator Receptionist: Vincent Sy MD Sodium [Moles/Vol] 132 mmol/L Low 135-144 [facility] Comment on above: Performed By: #### B MP, MG, CBC, PT, PTT #### [employer] [address] [place] [address] Operator Receptionist: Vincent Sy MD Urea nitrogen [Mass/Vol] 31 mg/dL High 6-20 [facility] Comment on above: Performed By: #### B MP, MG, CBC, PT, PTT #### [employer] [address] [place] [address] Operator Receptionist: Vincent Sy MD Beta Hydroxybutyrateon 05-24 Beta Hydroxybutyrate 0.21 mmol/L Normal 0.02-0.27 [facility] Comment on above: Performed By: #### B MP, MG, CBC, PT, PTT #### [facility] [address] [place] [address] Operator Receptionist: Vincent Sy MD Beta-Hydroxybutyrateon 05-24 Beta-Hydroxybutyrate 0.21 mmol/L 0.02 - 0.27 mmol/L [facility] CBC with Auto Differentialon 05-24-2022 Absolute Eos # 0.11 [facility] Absolute Immature Granulocyte 0.00 [facility] Absolute Lymph # 4.92 [facility] Absolute [place] # 0.64 [facility] Basophils (Bld) [#/Vol] 0.00 10*3/uL [facility] Basophils/100 WBC (Bld) 0 % 0 - 2 % B ON [facility] Eosinophils/100 WBC (Bld) 1 % 1 - 4 % [facility] Hematocrit (Bld) [Volume fraction] 39.0 % Low 40.7 - 50.3 % [facility] Hemoglobin (Bld) [Mass/Vol] 13.4 g/dL 13.0 - 17.0 g/dL [facility] Immature granulocytes/100 WBC (Bld) 0 % 0 [facility] Interpretation and review of laboratory results Abnormal [facility] Lymphocytes/100 WBC (Bld) 46 % High 24 - 44 % [facility] MCH (RBC) [Entitic mass] 29.8 pg 25.2 - 33.5 pg [facility] MCHC (RBC) [Mass/Vol] 34.4 g/dL 28.4 - 34.8 g/dL [facility] MCV (RBC) [Entitic vol] 86.7 fL 82.6 - 102.9 fL [facility] Monocytes/100 WBC (Bld) 6 % 1 - 7 % B ON [facility] Morphology Aryan (Bld) [Interp] Normal [facility] NRBC Automated 0.0 0.0 per 100 WBC [facility] Platelet distribution width (Bld) [Ratio] 13.1 % 11.8 - 14.4 % [facility] Platelet mean volume (Bld) [Entitic vol] 11.1 fL 8.1 - 13.5 fL [facility] Platelets (Bld) [#/Vol] 198 10*3/uL [facility] RBC (Bld) [#/Vol] 4.50 10*6/uL 4.21 - 5.7 7 m/uL [facility] Seg Neutrophils 47 % 36 - 66 % [facility] Segs Absolute 5.03 [facility] WBC (Bld) [#/Vol] 10.7 10*3/uL [facility] CBC with Diffon 05-24-2022 Abs. Basophil 0.00 k/uL Normal 0.0-0.2 [facility] Comment on above: Performed By: #### P TT #### [place] [address] Operator Receptionist: Vincent Sy MD Abs.Imm.Granulocyte 0.00 k/uL Normal 0.00-0.30 [facility] Comment on above: Performed By: #### P TT #### [place] [id number] Operator Receptionist: Vincent Sy MD Abs.Neutrophil (Seg) 5.03 k/uL Normal 1.8-7.7 [facility] Comment on above: Performed By: #### P TT #### [place] [id number] Operator Receptionist: Vincent Sy MD Basophils/100 WBC (Bld) 0 % Normal 0-2 [facility] Comment on above: Performed By: #### P TT #### [address] [address] Operator Receptionist: Vincent Sy MD Eosinophils (Bld) [#/Vol] 0.11 10*3/uL Normal 0.0-0.4 [facility] Comment on above: Performed By: #### P TT #### [address] [address] Operator Receptionist: Vincent Sy MD Eosinophils/100 WBC (Bld) 1 % Normal 1-4 [facility] Comment on above: Performed By: #### P TT #### [address] [address] Operator Receptionist: Vincent Sy MD Immature granulocytes/100 WBC (Bld) 0 % Normal 0 [facility] Comment on above: Performed By: #### P TT #### [address] [address] Operator Receptionist: Vincent Sy MD Lymphocytes (Bld) [#/Vol] 4.92 10*3/uL High 1.0-4.8 [facility] Comment on above: Performed By: #### P TT #### [address] [address] Operator Receptionist: Vincent Sy MD Lymphocytes/100 WBC (Bld) 46 % High 24-44 [facility] Comment on above: Performed By: #### P TT #### [address] [address] Operator Receptionist: Vincent Sy MD Monocytes (Bld) [#/Vol] 0.64 10*3/uL Normal 0.1-0.8 [facility] Comment on above: Performed By: #### P TT #### [address] [address] Operator Receptionist: Vincent Sy MD Monocytes/100 WBC (Bld) 6 % Normal 1-7 M [facility] Comment on above: Performed By: #### P TT #### [address] [address] Operator Receptionist: Vincent Sy MD Morphology Aryan (Bld) [Interp] Normal Normal [facility] Comment on above: Performed By: #### P TT #### [address] [address] Operator Receptionist: Vincent Sy MD Neutrophil (Seg) 47 % Normal 36-66 [facility] Comment on above: Performed By: #### P TT #### [address] [address] Operator Receptionist: Vincent Sy MD Erythrocyte distribution width (RBC) [Ratio] 13.1 % Normal 11.8-14.4 [facility] Comment on above: Performed By: #### P TT #### [address] [address] Operator Receptionist: Vincent Sy MD Hematocrit (Bld) [Volume fraction] 39.0 % Low 40.7-50.3 [facility] Comment on above: Performed By: #### P TT #### [address] [address] Operator Receptionist: Vincent Sy MD Hemoglobin (Bld) [Mass/Vol] 13.4 g/dL Normal 13.0-17.0 [facility] Comment on above: Performed By: #### P TT #### [address] [address] Operator Receptionist: Vincent Sy MD MCH (RBC) [Entitic mass] 29.8 pg Normal 25.2-33.5 [facility] Comment on above: Performed By: #### P TT #### [address] [address] Operator Receptionist: Vincent Sy MD MCHC (RBC) [Mass/Vol] 34.4 g/dL Normal 28.4-34.8 [facility] Comment on above: Performed By: #### P TT #### [address] [address] Operator Receptionist: Vincent Sy MD MCV (RBC) [Entitic vol] 86.7 fL Normal 82.6-102.9 M [facility] Comment on above: Performed By: #### P TT #### [address] [address] Operator Receptionist: Vincent Sy MD NRBC Automated 0.0 per 100 WBC Normal 0.0 [facility] Comment on above: Performed By: #### P TT #### [address] [address] Operator Receptionist: Vincent Sy MD Platelet mean volume (Bld) [Entitic vol] 11.1 fL Normal 8.1-13.5 [facility] Comment on above: Performed By: #### P TT #### [address] [address] Operator Receptionist: Vincent Sy MD Platelets (Bld) [#/Vol] 198 10*3/uL Normal 138-453 [facility] Comment on above: Performed By: #### P TT #### [address] [address] Operator Receptionist: Vincent Sy MD RBC (Bld) [#/Vol] 4.50 10*6/uL Normal 4.21-5.77 [facility] Comment on above: Performed By: #### P TT #### [address] [address] Operator Receptionist: Vincent Sy MD WBC (Bld) [#/Vol] 10.7 10*3/uL Normal 3.5-11.3 [facility] Comment on above: Performed By: #### P TT #### [facility] [address] [place], [place] [id number] Operator Receptionist: Vincent Sy MD EKG 12 LeadOrdered By: Bc Wilks on 05-24-2022 Atrial Rate 80 BPM [facility] [employer] Work Phone: P [place] 24 degrees [employer] [employer] Work Phone: P-R Interval 176 ms [facility] [employer] Work Phone: Q-T Interval 372 ms [employer] Work Phone: QRS Duration 94 ms [employer] Work Phone: QTc Calculation (Bazett) 429 ms [employer] Work Phone: R [place] 44 degrees [employer] Work Phone: T [place] 85 degrees [employer] Work Phone: Ventricular Rate 80 BPM [facility] [employer] Work Phone: [employer] Work Phone: EKG 12 Leadon 05-24-[address] M[address] [employer] Work Phone: EKG 12 leadon 05-24-2022 Atrial Rate 81 BPM [facility] [employer] Work Phone: P [place] 45 degrees [employer] Work Phone: P-R Interval 188 ms [employer] Work Phone: Q-T Interval 368 ms [employer] Work Phone: QRS Duration 96 ms [facility] [employer] Work Phone: QTc Calculation (Bazett) 427 ms [employer] Work Phone: R [place] 50 degrees [employer] Work Phone: T [place] 96 degrees [facility] [employer] Work Phone: Ventricular Rate 81 BPM [facility] [employer] Work Phone: MHPN STV MUSE [facility] [employer] Work Phone: [facility] [employer] Work Phone: LDL Chol, Directon 3 LDL Chol, Direct 230 mg/dL High <100 [facility] Comment on above: Performed By: #### P TT #### [facility] [address] [place] [address] Operator Receptionist: Vincent Sy MD LDL Cholesterol, Directon Cholesterol in LDL [Mass/Vol] 230 mg/dL High NINF - 100 mg/dL [facility] Interpretation and review of laboratory results Abnormal [facility] Lipid Profileon 05-24-2022 Cholesterol,LDL Normal 0-130 [facility] Comment on above: Result Comment: Calc ulation not valid for Triglyceride value greater than 400 mg/dL. Direct LDL reflexed LDL Guidelines: <100 Desirable 100-129 Near to/above Desirable 130-159 Borderline >159 Undesirable Direct (measured) LDL and calculated LDL are not interchangeable tests. Performed By: #### B MP, MG, CBC, PT, PTT #### [facility] [address] [place] [address] [phone] Operator Receptionist: Vincent Sy MD Cholesterol [Mass/Vol] 330 mg/dL High <200 [facility] Comment on above: Result Comment: Cholesterol Guidelines: <200 Desirable 200-240 Borderline >240 Undesirable Performed By: #### B MP, MG, CBC, PT, PTT #### [facility] [address] [place] [address] [phone] Operator Receptionist: Vincent Sy MD Cholesterol in HDL [Mass/Vol] 40 mg/dL Low >40 [facility] Comment on above: Result Comment: HDL Guidelines: <40 Undesirable 40-59 Borderline >59 Desirable Performed By: #### B MP, MG, CBC, PT, PTT #### [facility] [address] [place] [address] [phone] Operator Receptionist: Vincent Sy MD Cholesterol.total/Josefina sterol in HDL [Mass ratio] 8.3 {ratio} High <5 [facility] Comment on above: Performed By: #### B MP, MG, CBC, PT, PTT #### [facility] [address] [place] [address] [phone] Operator Receptionist: Vincent Sy MD Triglyceride [Mass/Vol] 577 mg/dL High <150 M [facility] Comment on above: Result Comment: Triglyceride Guidelines: <150 Desirable 150-199 Borderline 200-499 High >499 Very high Based on AHA Guidelines for fasting triglyceride, December 2011. Performed By: #### B MP, MG, CBC, PT, PTT #### [facility] [address] [place] [phone] Operator Receptionist: Vincent Sy MD Magnesiumon 05-24-2022 Magnesium [Mass/Vol] 1.8 mg/dL Normal 1.6-2.6 [facility] Comment on above: Performed By: #### B MP, MG, CBC, PT, PTT #### [facility] [address] [place] [address] [phone] Operator Receptionist: Vincent Sy MD No Panel Informationon 05-24 [facility] POC Glucose Fingerstickon Glucose [Mass/Vol] 293 mg/dL High 75 - 110 mg/dL [facility] Interpretation and review of laboratory results Abnormal [facility] Glucose [Mass/Vol] 364 mg/dL High 75 - 110 mg/dL [facility] Interpretation and review of laboratory results Abnormal [facility] Glucose [Mass/Vol] 417 mg/dL Critically high 75 - 1 10 mg/dL [facility] Interpretation and review of laboratory results Abnormal [facility] Protein,Tot,[place] 2022 Creatinine [Mass/Vol] 123.3 mg/dL Normal 39.0-259.0 [facility] Comment on above: Performed By: #### P T, GLYHGB, CDP #### [address] [address] Operator Receptionist: Vincent Sy MD Tot Prot. Conc. 76 mg/dL Normal [facility] Comment on above: Result Comment: No n ormal range established. Performed By: #### P T, GLYHGB, CDP #### [place] [address] Operator Receptionist: Vincent Sy MD TP/Cre Ratio 0.62 High 0.00-0.20 [facility] Comment on above: Performed By: #### P T, GLYHGB, CDP #### [place] [address] Operator Receptionist: Vincent Sy MD UA w/Reflex Cultureon 2 Bilirubin, SemiQt,Ur Negative Normal NEG [facility] Comment on above: Performed By: #### B MP, MG, CBC, PT, PTT #### [address] [address] Operator Receptionist: Vincent Sy MD Blood, Urine Negative Normal NEG [facility] Comment on above: Performed By: #### B MP, MG, CBC, PT, PTT #### [address] [address] Operator Receptionist: Vincent Sy MD Clarity (U) Clear Normal CLEAR [facility] Comment on above: Performed By: #### B MP, MG, CBC, PT, PTT #### [address] [address] Operator Receptionist: Vincent Sy MD Color (U) Yellow Normal YEL [facility] Comment on above: Performed By: #### B MP, MG, CBC, PT, PTT #### [facility] [address] [place] [phone] Operator Receptionist: Vincent Sy MD Glucose Ql (U) 3+ Abnormal NEG [facility] Comment on above: Performed By: #### B MP, MG, CBC, PT, PTT #### [address] [address] Operator Receptionist: Vincent Sy MD Ketones Ql (U) Negative Normal NEG [facility] Comment on above: Performed By: #### B MP, MG, CBC, PT, PTT #### [facility] [address] [place] [phone] Operator Receptionist: Vincent Sy MD Leukocyte esterase Test strip Ql (U) Negative Normal NEG [facility] Comment on above: Performed By: #### B MP, MG, CBC, PT, PTT #### [address] [address] Operator Receptionist: Vincent Sy MD Nitrite,Ur Negative Normal NEG [facility] Comment on above: Performed By: #### B MP, MG, CBC, PT, PTT #### [address] [address] Operator Receptionist: Vincent Sy MD PH,Ur 5.5 Normal 5.0-8.0 [facility] Comment on above: Performed By: #### B MP, MG, CBC, PT, PTT #### [facility] [address] [place] [phone] Operator Receptionist: Vincent Sy MD Protein Ql (U) 2+ Abnormal NEG [facility] Comment on above: Performed By: #### B MP, MG, CBC, PT, PTT #### [facility] [address] [place] [phone] Operator Receptionist: Vincent Sy MD Spec. [place],Ur 1.025 Normal 1.005-1.030 [facility] Comment on above: Performed By: #### B MP, MG, CBC, PT, PTT #### [id number] [place] [address] Operator Receptionist: Vincent Sy MD Urobilinogen,Ur Normal Normal NORM [facility] Comment on above: Performed By: #### B MP, MG, CBC, PT, PTT #### [address] [address] Operator Receptionist: Vincent Sy MD US RETROPERITONEAL COMPLETEo n 05-24-2022 US RETROPERITONEAL COMPLETE EXAMINATION: RETROPERITONEAL ULTRASOUND OF THE KIDNEYS AND URINARY BLADDER 05/23/2022 COMPARISON: None HISTORY: ORDERING SYSTEM PROVIDED HISTORY: acute on chronic kidney injury TECHNOLOGIST PROVIDED HISTORY: acute on chronic kidney injury FINDINGS: Kidneys: The right kidney measures 10.2 cm in length and the left kidney measures 10.3 cm in length. Kidneys demonstrate normal cortical echogenicity. No evidence of hydronephrosis or intrarenal stones. There is a cystic appearing lesion measuring 3.0 cm noted within the right kidney. Bladder: Unremarkable appearance of the bladder. Patient with no urge to void. IMPRESSION: Normal renal length and echotexture without obstruction. Interpreted by: Sony Whitt MD Signed by: Sony Whitt MD 05/24/22 Final result Normal [facility] Urinalysis,Microon 3 Casts 2 TO 5 HYALINE Normal 0-8 [facility] Comment on above: Result Comment: Refe rence range defined for non-centrifuged specimen. Performed By: #### B MP, MG, CBC, PT, PTT #### [id number] [place] [address] Operator Receptionist: Vincent Sy MD Epithelial cells LM Ql (Urine sed) 0 TO 2 Normal 0-5 [facility] Comment on above: Performed By: #### B MP, MG, CBC, PT, PTT #### [address] [address] Operator Receptionist: Vincent Sy MD Urine RBC's 0 TO 2 Normal 0-4 [facility] Comment on above: Result Comment: Refe rence range defined for non-centrifuged specimen. Performed By: #### B MP, MG, CBC, PT, PTT #### [address] [address] Operator Receptionist: Vincent Sy MD Urine WBC's 2 TO 5 Normal 0-5 [facility] Comment on above: Performed By: #### B MP, MG, CBC, PT, PTT #### [address] [address] Operator Receptionist: Vincent Sy MD APTTon 05-23-2022 aPTT Coag (Bld) [Time] 40.9 s High 20.5-30.5 [facility] Comment on above: Result Comment: IV Heparin Therapy Range: 48.6-77.8 Performed By: #### B MP, MG, CBC, PT, PTT #### [address] [address] Operator Receptionist: Vincent Sy MD Basic Metab w/rfx MGon 05-23 Glucose [Mass/Vol] 416 mg/dL Critically high 70-99 [facility] Comment on above: Performed By: #### B MP, MG, CBC, PT, PTT #### [address] [address] Operator Receptionist: Vincent Sy MD Anion gap [Moles/Vol] 12 mmol/L Normal 9-17 [facility] Comment on above: Performed By: #### B MP, MG, CBC, PT, PTT #### [address] [address] Operator Receptionist: Vincent Sy MD Calcium [Mass/Vol] 10.6 mg/dL High 8.6-10.4 [facility] Comment on above: Performed By: #### B MP, MG, CBC, PT, PTT #### [facility] [address] [place] [address] Operator Receptionist: Vincent Sy MD Chloride [Moles/Vol] 97 mmol/L Low 98-107 [facility] Comment on above: Performed By: #### B MP, MG, CBC, PT, PTT #### [facility] [address] [place] [address] Operator Receptionist: Vincent Sy MD CO2 [Moles/Vol] 23 mmol/L Normal 20-31 [facility] Comment on above: Performed By: #### B MP, MG, CBC, PT, PTT #### [facility] [address] [place] [address] Operator Receptionist: Vincent Sy MD Creatinine [Mass/Vol] 2.08 mg/dL High 0.70-1.20 [facility] Comment on above: Performed By: #### B MP, MG, CBC, PT, PTT #### [facility] [address] [place] [address] Operator Receptionist: Vincent Sy MD GFR/1.73 sq M.predicted among non-blacks MDRD (S/P/Bld) [Vol rate/Area] 41 mL/min/{1.73_m2} Low >60 [facility] Comment on above: Result Comment: These results are not intended for use in patients <18 years of age. eGFR results are calculated without a race factor using the 2020 CKD-EPI equation. Careful clinical correlation is recommended, particularly when comparing to results calculated using previous equations. The CKD-EPI equation is less accurate in patients with extremes of muscle mass, extra-renal metabolism of creatine, excessive creatine ingestion, or following therapy that affects renal tubular secretion. Performed By: #### B MP, MG, CBC, PT, PTT #### [facility] [address] [place] [address] Operator Receptionist: Vincent Sy MD Potassium [Moles/Vol] 4.3 mmol/L Normal 3.7-5.3 [facility] Comment on above: Performed By: #### B MP, MG, CBC, PT, PTT #### [facility] [place] [address] Operator Receptionist: Vincent Sy MD Sodium [Moles/Vol] 132 mmol/L Low 135-144 [facility] Comment on above: Performed By: #### B MP, MG, CBC, PT, PTT #### [facility] [address] [place] [address] Operator Receptionist: Vincent Sy MD Urea nitrogen [Mass/Vol] 34 mg/dL High 6-20 [facility] Comment on above: Performed By: #### B MP, MG, CBC, PT, PTT #### [facility] [address] [place] [address] Operator Receptionist: Vincent Sy MD CARDIAC ALECIA 3-6on 3 CK [Catalytic activity/Vol] 155 U/L Normal 39-308 [facility] Comment on above: Performed By: #### D DIM #### [facility] [address] [address] [address] Sushila Dong CK.MB [Mass/Vol] 2.94 ng/mL Normal <=3.60 [facility] Comment on above: Performed By: #### D DIM #### [facility] [address] [place], [place] [address] Dr. Sushila Dong HSTROP 718.1 pg/mL Critically high 4.0-76.1 [facility] Comment on above: Result Comment: CUT- OFF POINTS HAVE BEEN ESTABLISHED BASED ON THE FOURTH UNIVERSAL DEFINITIONS OF MYOCARDIAL INFARCTION. THE UPPER REFERENCE LIMIT (URL) OF TROPONIN, DEFINED THE 99TH PERCENTILE OF cTnI DISTRIBUTION IN A REFERENCE POPULATION, HAS BEEN CONFIRMED THE DECISION THRESHOLD FOR TN DIAGNOSIS. Performed By: #### D DIM #### [facility] [address] [address] [address] Sushila Dong CK [Catalytic activity/Vol] 154 U/L Normal 39-308 [facility] Comment on above: Performed By: #### C MREP #### [facility] [address] [address] [address] Sushila Dong CK.MB [Mass/Vol] 2.46 ng/mL Normal <=3.60 [facility] Comment on above: Performed By: #### C MREP #### [facility] [address] [address] [address] Sushila Dong HSTROP 445.9 pg/mL Critically high 4.0-76.1 [facility] Comment on above: Result Comment: CUT- OFF POINTS HAVE BEEN ESTABLISHED BASED ON THE FOURTH UNIVERSAL DEFINITIONS OF MYOCARDIAL INFARCTION. THE UPPER REFERENCE LIMIT (URL) OF TROPONIN, DEFINED THE 99TH PERCENTILE OF cTnI DISTRIBUTION IN A REFERENCE POPULATION, HAS BEEN CONFIRMED THE DECISION THRESHOLD FOR TN DIAGNOSIS. Performed By: #### C MREP #### [facility] [address] [address] [address] Sushila Dong CARDIAC ALECIA ADMITon 023 CK [Catalytic activity/Vol] 145 U/L Normal 39-308 [facility] Comment on above: Performed By: #### JOHN Blake MP #### [facility] [address] [address] [address] Sushila Dong CK.MB [Mass/Vol] 2.14 ng/mL Normal <=3.60 [facility] Comment on above: Performed By: #### Hayden ELIZABETH CMADM #### [facility] [address] [address] [address] Sushila Dong HSTROP 84.8 pg/mL Critically high 4.0-76.1 [facility] Comment on above: Result Comment: CUT- OFF POINTS HAVE BEEN ESTABLISHED BASED ON THE FOURTH UNIVERSAL DEFINITIONS OF MYOCARDIAL INFARCTION. THE UPPER REFERENCE LIMIT (URL) OF TROPONIN, DEFINED THE 99TH PERCENTILE OF cTnI DISTRIBUTION IN A REFERENCE POPULATION, HAS BEEN CONFIRMED THE DECISION THRESHOLD FOR TN DIAGNOSIS. Performed By: #### B CLARA CMADM #### [facility] [address] [address] [address] Sushila Dong BIPIN 214 ng/mL Critically high 16-96 [facility] Comment on above: Performed By: #### B MP, CMADM #### [facility] [address] [place] [address] Dr. Sushila Dong CBC AUTO DIFFon 05-23-2022 BASO # 0.0 103/ul Normal 0.0-0.1 [facility] Comment on above: Performed By: #### C BC #### [facility] [address] [place] [address] Dr. Sushila Dong Basophils/100 WBC (Bld) 0.4 % Normal 0.2-2.0 [facility] Comment on above: Performed By: #### C BC #### [facility] [address] [place] [address] Dr. Sushila Dong EO # 0.1 103/ul Normal 0.0-0.7 [facility] Comment on above: Performed By: #### C BC #### [facility] [address] [place] [address] Dr. Sushila Dong Eosinophils/100 WBC (Bld) 1.6 % Normal 0.9-7.0 [facility] Comment on above: Performed By: #### C BC #### [facility] [address] [place] [address] Dr. Sushila Dong Erythrocyte distribution width (RBC) [Ratio] 12.7 % Normal 11.0-15.0 [facility] Comment on above: Performed By: #### C BC #### [facility] [address] [place] [address] Dr. Sushila Dong Hematocrit (Bld) [Volume fraction] 43.8 % Normal 42.0-54.0 [facility] Comment on above: Performed By: #### C BC #### [facility] [address] [place] [address] Dr. Sushila Dong Hemoglobin (Bld) [Mass/Vol] 15.0 g/dL Normal 14.0-18.0 [facility] Comment on above: Performed By: #### C BC #### [facility] [address] [address] [address] Sushila Dong IG # 0.04 10e3/ul Critically high 0.00-0.03 [facility] Comment on above: Performed By: #### C BC #### [facility] [address] [address] [address] Sushila Dong IG % 0.4 % Normal 0.0-0.5 [facility] Comment on above: Performed By: #### C BC #### [facility] [address] [place] [address] Dr. Sushila Dong LYMPH # 2.4 103/ul Normal 1.2-3.8 [facility] Comment on above: Performed By: #### C BC #### [facility] [address] [place] [address] Dr. Sushila Dong Lymphocytes/100 WBC (Bld) 26.5 % Normal 20.5-60.0 [facility] Comment on above: Performed By: #### C BC #### [facility] [address] [place] [address] Dr. Sushila Dong MANUAL DIFF REQ NO Normal [facility] Comment on above: Performed By: #### C BC #### [facility] [address] [place] [address] Dr. Sushila Dong MCH (RBC) [Entitic mass] 29.6 pg Normal 25.9-34.0 [facility] Comment on above: Performed By: #### C BC #### [facility] [address] [place] [address] Dr. Sushila Dong MCHC (RBC) [Mass/Vol] 34.2 g/dL Normal 29.9-35.2 [facility] Comment on above: Performed By: #### C BC #### [facility] [address] [place] [address] Dr. Sushila Dong MCV (RBC) [Entitic vol] 86.6 fL Normal 80.0-94.0 [facility] Comment on above: Performed By: #### C BC #### [facility] [address] [address] [address] Sushila Dong MONO # 0.8 103/ul Normal 0.3-0.8 [facility] Comment on above: Performed By: #### C BC #### [facility] [address] [place] [address] Dr. Sushila Dong Monocytes/100 WBC (Bld) 9.4 % Normal 1.7-12.0 [facility] Comment on above: Performed By: #### C BC #### [facility] [address] [place] [address] Dr. Suhsila Dong NEUT # 5.5 103/ul Normal 1.4-6.5 [facility] Comment on above: Performed By: #### C BC #### [facility] [address] [place] [address] Dr. Sushila Dong Neutrophils/100 WBC (Bld) 61.7 % Normal 43.0-75.0 [facility] Comment on above: Performed By: #### C BC #### [facility] [address] [place] [address] Dr. Sushila Dong Platelet mean volume (Bld) [Entitic vol] 11.0 fL Normal 9.5-13.5 [facility] Comment on above: Performed By: #### C BC #### [facility] [address] [place] [address] Dr. Sushila Dong PLT 236 103/ul Normal 150-450 [facility] Comment on above: Performed By: #### C BC #### [facility] [address] [place] [address] Dr. Sushila Dong RBC 5.06 106/ul Normal 4.70-6.10 [facility] Comment on above: Performed By: #### C BC #### [facility] [address] [place] [address] Dr. Sushila Dong WBC 8.9 103/ul Normal 4.0-11.0 [facility] Comment on above: Performed By: #### C BC #### [facility] [address] [place] [address] Dr. Sushila Dong CBC with Diffon 05-23-2022 Abs. Basophil 0.06 k/uL Normal 0.00-0.20 [facility] Comment on above: Performed By: #### B MP, MG, CBC, PT, PTT #### [address] [address] Operator Receptionist: Vincent Sy MD Abs.Imm.Granulocyte 0.04 k/uL Normal 0.00-0.30 [facility] Comment on above: Performed By: #### B MP, MG, CBC, PT, PTT #### [place] [address] Operator Receptionist: Vincent Sy MD Abs.Neutrophil (Seg) 5.16 k/uL Normal 1.50-8.10 [facility] Comment on above: Performed By: #### B MP, MG, CBC, PT, PTT #### [place] [address] Operator Receptionist: Vincent Sy MD Basophils/100 WBC (Bld) 1 % Normal 0-2 [facility] Comment on above: Performed By: #### B MP, MG, CBC, PT, PTT #### [address] [address] Operator Receptionist: Vincent Sy MD Eosinophils (Bld) [#/Vol] 0.21 10*3/uL Normal 0.00-0.44 [facility] Comment on above: Performed By: #### B MP, MG, CBC, PT, PTT #### [address] [address] Operator Receptionist: Vincent Sy MD Eosinophils/100 WBC (Bld) 2 % Normal 1-4 [facility] Comment on above: Performed By: #### B MP, MG, CBC, PT, PTT #### [address] [address] Operator Receptionist: Vincent Sy MD Erythrocyte distribution width (RBC) [Ratio] 12.4 % Normal 11.8-14.4 [facility] Comment on above: Performed By: #### B MP, MG, CBC, PT, PTT #### [address] [address] Operator Receptionist: Vincent Sy MD Hematocrit (Bld) [Volume fraction] 43.4 % Normal 40.7-50.3 [facility] Comment on above: Performed By: #### B MP, MG, CBC, PT, PTT #### [address] [address] Operator Receptionist: Vincent Sy MD Hemoglobin (Bld) [Mass/Vol] 15.5 g/dL Normal 13.0-17.0 [facility] Comment on above: Performed By: #### B MP, MG, CBC, PT, PTT #### [address] [address] Operator Receptionist: Vincent Sy MD Immature granulocytes/100 WBC (Bld) 0 % Normal 0 [facility] Comment on above: Performed By: #### B MP, MG, CBC, PT, PTT #### [facility] [address] [place] [address] Operator Receptionist: Vincent Sy MD Lymphocytes (Bld) [#/Vol] 4.44 10*3/uL High 1.10-3.70 [facility] Comment on above: Performed By: #### B MP, MG, CBC, PT, PTT #### [address] [address] Operator Receptionist: Vincent Sy MD Lymphocytes/100 WBC (Bld) 41 % Normal 24-43 [facility] Comment on above: Performed By: #### B MP, MG, CBC, PT, PTT #### [address] [id number] Operator Receptionist: Vincent Sy MD MCH (RBC) [Entitic mass] 29.8 pg Normal 25.2-33.5 [facility] Comment on above: Performed By: #### B MP, MG, CBC, PT, PTT #### [address] [address] Operator Receptionist: Vincent Sy MD MCHC (RBC) [Mass/Vol] 35.7 g/dL High 28.4-34.8 [facility] Comment on above: Performed By: #### B MP, MG, CBC, PT, PTT #### [address] [address] Operator Receptionist: Vincent Sy MD MCV (RBC) [Entitic vol] 83.5 fL Normal 82.6-102.9 [facility] Comment on above: Performed By: #### B MP, MG, CBC, PT, PTT #### [address] [address] Operator Receptionist: Vincent Sy MD Monocytes (Bld) [#/Vol] 1.02 10*3/uL Normal 0.10-1.20 [facility] Comment on above: Performed By: #### B MP, MG, CBC, PT, PTT #### [address] [address] Operator Receptionist: Vincent Sy MD Monocytes/100 WBC (Bld) 9 % Normal 3-12 [facility] Comment on above: Performed By: #### B MP, MG, CBC, PT, PTT #### [address] [address] Operator Receptionist: Vincent Sy MD Neutrophil (Seg) 47 % Normal 36-65 [facility] Comment on above: Performed By: #### B MP, MG, CBC, PT, PTT #### [address] [address] Operator Receptionist: Vincent Sy MD NRBC Automated 0.0 per 100 WBC Normal 0.0 [facility] Comment on above: Performed By: #### B MP, MG, CBC, PT, PTT #### [address] [address] Operator Receptionist: Vincent Sy MD Platelet mean volume (Bld) [Entitic vol] 11.4 fL Normal 8.1-13.5 [facility] Comment on above: Performed By: #### B MP, MG, CBC, PT, PTT #### [address] [address] Operator Receptionist: Vincent Sy MD Platelets (Bld) [#/Vol] 248 10*3/uL Normal 138-453 [facility] Comment on above: Performed By: #### B MP, MG, CBC, PT, PTT #### [address] [address] Operator Receptionist: Vincent Sy MD RBC (Bld) [#/Vol] 5.20 10*6/uL Normal 4.21-5.77 [facility] Comment on above: Performed By: #### B MP, MG, CBC, PT, PTT #### [address] [address] Operator Receptionist: Vincent Sy MD WBC (Bld) [#/Vol] 10.9 10*3/uL Normal 3.5-11.3 [facility] Comment on above: Performed By: #### B MP, MG, CBC, PT, PTT #### [address] [address] Operator Receptionist: Vincent Sy MD [facility] SARS-CoV-2 (COVID-19) RNA VIK+probe Ql (Unsp spec) Not detected Normal NOT DETECTED [facility] Comment on above: Result Comment: When diagnostic testing is negative, the possibility of a false negative should be considered in the context of a patient's recent exposures and the presence of clinical signs and symptoms consistent with SARS-CoV-2. This test is not yet approved or cleared by the [place] FDA. When there are no FDA-approved or cleared tests available, and other criteria are met, FDA can make tests available under an emergency access mechanism called an Emergency Use Authorization (EUA). The EUA for this test is supported by the [place] of Health and Human Service's declaration that circumstances exist to justify the emergency use of in vitro diagnostics for the detection and/or diagnosis of the virus that causes COVID-19. This EUA will remain in effect for the duration of the COVID-19 declaration justifying emergency of IVDs, unless it is terminated or revoked by the FDA (after which the test may no longer be used). Performed By: #### D DIM #### [facility] [address] [place] [address] Dr. Sushila Dong D-DIMERon 05-23-2022 D-DIMER 0.40 mg/L FEU Normal <=0.59 [facility] Comment on above: Performed By: #### D DIM #### [facility] [address] [place] [address] Dr. Sushila Dong D-DIMER COMMENTS SEE BELOW Normal [facility] Comment on above: Result Comment: Incr eases in D-Dimer concentration observed with thromboembolic events can be variable due to localization, size, and age of the thrombus. Therefore, a thromboembolic event cannot be diagnosed with certainty on the basis of the reference range. D-Dimers may also be elevated for a variety of disorders including: advanced age, , coronary disease, cancer, liver disease, infection, inflammation, hematoma, DIC, trauma, post-surgery, diabetes, thrombolytic or anticoagulant therapy, stress, and generalized hospitalization. Performed By: #### D DIM #### [facility] [address] [place] [address] Dr. Sushila Dong ER URINE PROFILEon 3 Bilirubin Ql (U) Negative Normal NEGATIVE [facility] Comment on above: Performed By: #### U MICRO, ERUR #### [facility] [address] [place] [address] Dr. Sushila Dong Clarity (U) CLEAR Normal CLEAR [facility] Comment on above: Performed By: #### U MICRO, ERUR #### [facility] [address] [place] [address] Dr. Sushila Dong Color (U) LT. YELLOW Normal YELLOW [facility] Comment on above: Performed By: #### U MICRO, ERUR #### [facility] [address] [place] [address] Dr. Sushila Dong ERUAHD A micrscopic examination will be performed if indicated. Normal [facility] Comment on above: Performed By: #### U MICRO, ERUR #### [facility] [address] [place] [address] Dr. Sushila Dong Glucose Ql (U) >1000 Abnormal NEGATIVE [facility] Comment on above: Performed By: #### U MICRO, ERUR #### [facility] [address] [place] [address] Dr. Sushila Dong Hemoglobin Ql (U) TRACE-LYSED Abnormal NEGATIVE [facility] Comment on above: Performed By: #### U MICRO, ERUR #### [facility] [address] [place] [address] Dr. Sushila Dong Ketones Ql (U) Negative Normal NEGATIVE [facility] Comment on above: Performed By: #### U MICRO, ERUR #### [facility] [address] [place] [address] Dr. Sushila Dong LEUKOCYTES Negative Normal NEGATIVE [facility] Comment on above: Performed By: #### U MICRO, ERUR #### [facility] [address] [place] [address] Dr. Sushila Dong Nitrite Ql (U) Negative Normal NEGATIVE [facility] Comment on above: Performed By: #### U MICRO, ERUR #### [facility] [address] [place] [address] Dr. Sushila Dong pH (U) 6.0 [pH] Normal 5-9 [facility] Comment on above: Performed By: #### U MICRO, ERUR #### [facility] [address] [address] [address] Sushila Dong Protein (U) [Mass/Vol] 30 mg/dL Abnormal NEGAT KEISHA/ TRACE [facility] Comment on above: Performed By: #### U MICRO, ERUR #### [facility] [address] [address] [address] Sushila Dong SPEC GRAVITY <=1.005 Abnormal 1.005-<=1.025 [facility] Comment on above: Performed By: #### U MICRO, ERUR #### [facility] [address] [address] [address] Sushila Dong UR MICRO IND INDICATED Normal [facility] Comment on above: Performed By: #### U MICRO, ERUR #### [facility] [address] [place] [address] Dr. Sushila Dong Urobilinogen Qn (U) 0.2 {Ellyn'U}/dL Normal 0.2 - 1. 0 [facility] Comment on above: Performed By: #### U MICRO, ERUR #### [facility] [address] [address] [address] Sushila Dong GLUCOSE BLOODon 05-23-2022 Glucose [Mass/Vol] 586 mg/dL Critically high [facility]106 [facility] Comment on above: Performed By: #### D DIM #### [facility] [address] [place] [address] Dr. Sushila Dong Glucose [Mass/Vol] 713 mg/dL Critically high -106 [facility] Comment on above: Performed By: #### G JEAN-CLAUDE #### [facility] [address] [place] [address] Dr. Sushila Dong Hemoglobin A1Con 05-23-2022 Glucose [Mass/Vol] 243 mg/dL Normal [facility] Comment on above: Result Comment: The ADA and AACC recommend providing the estimated average glucose result to permit better patient understanding of their HBA1c result. Performed By: #### B MP, MG, CBC, PT, PTT #### [facility] [address] [place], [place] [id number] Operator Receptionist: Vincent Sy MD HbA1c (Bld) [Mass fraction] 10.1 % High 4.0-6.0 [facility] Comment on above: Performed By: #### B MP, MG, CBC, PT, PTT #### [facility] [address] [place], [place] [id number] Operator Receptionist: Vincent Sy MD Lipaseon 05-23-2022 Lipase [Catalytic activity/Vol] 59 U/L Normal -60 [facility] Comment on above: Performed By: #### B MP, MG, CBC, PT, PTT #### [facility] [address] [place], [place] [id number] Operator Receptionist: Vincent Sy MD POINT OF CARE GLUCOSEon 05-05 Glucose [Mass/Vol] 561 mg/dL Critically high 74-106 [facility] Comment on above: Result Comment: Lab Draw Ordered Performed By: #### D DIM #### [facility] [address] [place] [address] Dr. Sushila Dong POCGLUC >600 Critically high 74-106 [facility] Comment on above: Result Comment: Lab Draw Ordered Performed By: #### D DIM #### [facility] [address] [place] [address] Dr. Sushila Dong POCGLUC >600 Critically high 74-106 [facility] Comment on above: Result Comment: Prev iously Confirmed Performed By: #### D DIM #### [facility] [address] [place] [address] Dr. Sushila Dong POCGLUC >600 Critically high 74-106 [facility] Comment on above: Result Comment: Lab Draw Ordered Performed By: #### D DIM #### [facility] [address] [address] [address] Sushila Dong PROF CHEM 8 (BAS METB)on Anion gap [Moles/Vol] 13.4 mmol/L Normal [facility] Comment on above: Performed By: #### B MP #### [facility] [address] [address] [address] Sushila Dong Calcium [Mass/Vol] 12.2 mg/dL Critically high 8.5-10.1 [facility] Comment on above: Performed By: #### B MP #### [facility] [address] [address] [address] Sushila Dong Chloride [Moles/Vol] 87 mmol/L Critically low 98-107 [facility] Comment on above: Performed By: #### B MP #### [facility] [address] [address] [address] Sushila Dong CO2 [Moles/Vol] 25.9 mmol/L Normal 21.0-32.0 [facility] Comment on above: Performed By: #### B MP #### [facility] [address] [address] [address] Sushila Dong Creatinine [Mass/Vol] 2.51 mg/dL Critically high 0.70-1.30 [facility] Comment on above: Performed By: #### B MP #### [facility] [address] [address] [address] Sushila Dong EGFR-AF LUXEMBOURGER 35 mL/min/1.73m2 Critically low >=60 [facility] Comment on above: Performed By: #### B MP #### [facility] [address] [address] [address] Sushila Dong EGFR-NON AF LUXEMBOURGER 29 mL/min/1.73m2 Critically low >=60 [facility] Comment on above: Performed By: #### B MP #### [facility] [address] [address] [address] Sushila Dong Glucose [Mass/Vol] 863 mg/dL Critically high 74-106 [facility] Comment on above: Performed By: #### B MP #### [facility] [address] [address] [address] Sushila Dong Potassium [Moles/Vol] 5.3 mmol/L Critically high 3.5-5.1 [facility] Comment on above: Performed By: #### B MP #### [facility] [address] [address] [address] Sushila Dong Sodium [Moles/Vol] 120 mmol/L Critically low 136-145 [facility] Comment on above: Performed By: #### B MP #### [facility] [address] [address] [address] Sushila Dong Urea nitrogen [Mass/Vol] 40.0 mg/dL Critically high 7.0-18.0 [facility] Comment on above: Performed By: #### B MP #### [facility] [address] [address] [address] Sushila Dong Urea nitrogen/Creatinine [Mass ratio] 15.9 mg/mg Normal [facility] Comment on above: Performed By: #### B MP #### [facility] [address] [address] [address] Sushila Dong Anion gap [Moles/Vol] 12.7 mmol/L Normal [facility] Comment on above: Performed By: #### D DIM #### [facility] [address] [address] [address] Sushila Dong Calcium [Mass/Vol] 10.8 mg/dL Critically high 8.5-10.1 [facility] Comment on above: Performed By: #### D DIM #### [facility] [address] [address] [address] Sushila Dong Chloride [Moles/Vol] 82 mmol/L Critically low 98-107 [facility] Comment on above: Performed By: #### D DIM #### [facility] [address] [address] [address] Sushila Dong CO2 [Moles/Vol] 24.9 mmol/L Normal 21.0-32.0 [facility] Comment on above: Performed By: #### D DIM #### [facility] [address] [address] [address] Sushila Dong Creatinine [Mass/Vol] 2.75 mg/dL Critically high 0.70-1.30 [facility] Comment on above: Performed By: #### D DIM #### [facility] [address] [address] [address] Sushila Dong EGFR-AF LUXEMBOURGER 32 mL/min/1.73m2 Critically low >=60 [facility] Comment on above: Performed By: #### D DIM #### [facility] [address] [id number] [address] Sushila Dong EGFR-NON AF LUXEMBOURGER 26 mL/min/1.73m2 Critically low >=60 [facility] Comment on above: Performed By: #### D DIM #### [facility] [address] [address] [address] Sushila Dong Glucose [Mass/Vol] 1135 mg/dL Critically high 74-106 [facility] Comment on above: Performed By: #### D DIM #### [facility] [address] [address] [address] Sushila Dong Potassium [Moles/Vol] 5.6 mmol/L Critically high 3.5-5.1 [facility] Comment on above: Performed By: #### D DIM #### [facility] [address] [address] [address] Sushila Dong Sodium [Moles/Vol] 114 mmol/L Critically low 136-145 [facility] Comment on above: Result Comment: Roma P[address] Dr. notifmiranda Performed By: #### D DIM #### [facility] [address] [address] [address] Sushila Dong Urea nitrogen [Mass/Vol] 39.0 mg/dL Critically high 7.0-18.0 [facility] Comment on above: Performed By: #### D DIM #### [facility] [address] [address] [address] Sushila Dong Urea nitrogen/Creatinine [Mass ratio] 14.2 mg/mg Normal [facility] Comment on above: Performed By: #### D DIM #### [facility] [address] [address] [address] Sushila Dong PROTIMEon 05-23-2022 INR Coag (PPP) [Relative time] 0.94 {INR} Normal [facility] Comment on above: Performed By: #### P T, PTT #### [facility] [address] [place] [address] Dr. Sushila Dong INR GUIDELINES SEE BELOW Normal [facility] Comment on above: Result Comment: SILVERIO RED INR: 2.0 - 3.0 CONDITIONS NOT LISTED BELOW 2.5 - 3.5 FOR PROSTHETIC HEART VALVE REPLACEMENT 2.5 - 3.5 RECURRENT THROMBOSIS Performed By: #### P T, PTT #### [facility] [address] [place] [address] Dr. Sushila Dong PT Coag (PPP) [Time] 10.0 s Normal 9.0-11.6 [facility] Comment on above: Performed By: #### P T, PTT #### [facility] [address] [place] [address] Dr. Sushila Dong PTTon 05-23-2022 aPTT Coag (Bld) [Time] 27.1 s Normal 22.3-36.2 [facility] Comment on above: Performed By: #### P T, PTT #### [facility] [address] [place] [address] Dr. Sushila Dong Troponinon 05-23-2022 Troponin, High Sens 113 ng/L Critically high 0-22 [facility] Comment on above: Result Comment: High Sensitivity Troponin values cannot be compared with other Troponin methodologies. Previous Alert Value Reported Performed By: #### P T, GLYHGB, CDP #### [facility] [employer] [address] [place] [id number] Operator Receptionist: Vincent Sy MD Troponin, High Sens 138 ng/L Critically high 0-22 [facility] Comment on above: Result Comment: High Sensitivity Troponin values cannot be compared with other Troponin methodologies. Performed By: #### B MP, MG, CBC, PT, PTT #### [facility] [address] [place], [place] [id number] Operator Receptionist: Vincent Sy MD URINE MICROSCOPIC ONLYon BACTERIA NONE SEEN Normal NONE SEEN [facility] Comment on above: Performed By: #### U MICRO, ERUR #### [facility] [address] [address] [address] Sushila Dong Bacteria identified Cx Nom (U) NOT INDICATED Normal [facility] Comment on above: Performed By: #### U MICRO, ERUR #### [facility] [address] [place] [address] Dr. Sushila Dong CAST NONE SEEN Normal NONE SEEN [facility] Comment on above: Performed By: #### U MICRO, ERUR #### [facility] [address] [address] [address] Sushila Dong Crystals LM Nom (Urine sed) NONE SEEN Normal NONE SEEN [facility] Comment on above: Performed By: #### U MICRO, ERUR #### [facility] [address] [place] [address] Dr. Sushila Dong Epithelial cells LM Ql (Urine sed) FEW Abnormal NONE SEEN /RARE [facility] Comment on above: Performed By: #### U MICRO, ERUR #### [facility] [address] [place] [address] Dr. Sushila Dong MUCOUS NONE SEEN Normal NONE SEEN [facility] Comment on above: Performed By: #### U MICRO, ERUR #### [facility] [address] [place] [address] Dr. Sushila Dong RBC 2-5 Abnormal 0-2 [facility] Comment on above: Performed By: #### U MICRO, ERUR #### [facility] [address] [place] [address] Dr. Sushila Dong WBC 2-5 Abnormal NONE SEEN [facility] Comment on above: Performed By: #### U MICRO, ERUR #### [facility] [address] [place] [address] Dr. Sushila Dong XR CHEST 2 Von 05-23-2022 XR CHEST 2 V CLINICAL HISTORY: Chest pain. COMPARISON: Chest radiograph 08/26/2018. FINDINGS: PA and lateral views of the chest obtained. Cardiomediastinal silhouette is normal. Lungs are clear, no evidence of infiltrate or pleural effusion. No suspicious nodule or mass. No evidence of pneumothorax. No acute bony abnormality. IMPRESSION: No acute abnormality. Electronically authenticated by: LION Dejesus: 2022-05-23 02:59 Normal [facility] CBC with Auto Differentialon 10-06-2021 Absolute Eos # 0.10 [facility] Absolute Lymph # 2.30 [facility] Absolute [place] # 0.80 [facility] Basophils (Bld) [#/Vol] 0.00 10*3/uL [facility] Basophils/100 WBC (Bld) 1 % 0 - 2 % [facility] Eosinophils/100 WBC (Bld) 2 % 1 - 4 % [facility] Hematocrit (Bld) [Volume fraction] 40.3 % Low 41 - 53 % [facility] Hemoglobin (Bld) [Mass/Vol] 13.5 g/dL 13.5 - 17.5 g/dL [facility] Interpretation and review of laboratory results Abnormal [facility] Lymphocytes/100 WBC (Bld) 32 % 24 - 44 % [facility] MCH (RBC) [Entitic mass] 28.2 pg 26 - 34 pg [facility] MCHC (RBC) [Mass/Vol] 33.6 g/dL 31 - 37 g/dL B ON [facility] MCV (RBC) [Entitic vol] 84.1 fL 80 - 100 fL [facility] Monocytes/100 WBC (Bld) 11 % 2 - 11 % B ON [facility] Platelet distribution width (Bld) [Ratio] 13.9 % 12.5 - 15.4 % [facility] Platelet mean volume (Bld) [Entitic vol] 7.2 fL 6 - 12 fL [facility] Platelets (Bld) [#/Vol] 256 10*3/uL [facility] RBC (Bld) [#/Vol] 4.79 10*6/uL 4.5 - 5.9 m/uL [facility] Segmented neutrophils/100 WBC (Bld) 54 % 36 - 66 % [facility] Segs Absolute 3.90 [facility] WBC (Bld) [#/Vol] 7.1 10*3/uL [facility] Comprehensive Metabolic Pane jorge 10-06-2021 Albumin [Mass/Vol] 4.3 g/dL 3.5 - 5.2 g/dL [facility] Albumin/Globulin [Mass ratio] 1.3 {ratio} 1 - 2.5 [facility] ALP (Bld) [Catalytic activity/Vol] 85 U/L 40 - 129 U/L [facility] ALT [Catalytic activity/Vol] 36 U/L 5 - 41 U/L [facility] Anion gap [Moles/Vol] 8 mmol/L Low 9 - 17 mmol/L [facility] AST [Catalytic activity/Vol] 22 U/L NINF - 40 U/L [facility] Bilirubin [Mass/Vol] 0.44 mg/dL 0.3 - 1 .2 mg/dL [facility] Calcium [Mass/Vol] 10.5 mg/dL High 8.6 - 10. 4 mg/dL [facility] Chloride [Moles/Vol] 106 mmol/L 98 - 10 7 mmol/L [facility] CO2 [Moles/Vol] 23 mmol/L 20 - 31 mmol/L [facility] Creatinine [Mass/Vol] 1.46 mg/dL High 0.7 - 1.2 mg/dL [facility] Free PSA/Total PSA [Mass fraction] 7.7 g/dL 6.4 - 8.3 g/dL [facility] GFR >60 60 - PI NF mL/min [facility] GFR Non- 54 mL/min Low 60 - PINF mL/min [facility] GFR/1.73 sq M.predicted MDRD (S/P/Bld) [Vol rate/Area] [facility] Comment on above: Average GFR for 30-3 9 years old: 107 mL/min/1.73sq m Chronic Kidney Disease: <60 mL/min/1.73sq m Kidney failure: <15 mL/min/1.73sq m eGFR calculated using average adult body mass. Additional eGFR calculator available at: http://www.Weave.MyUS.com/multiple_crcl_2012.htm Glucose [Mass/Vol] 96 mg/dL 70 - 99 mg/dL [facility] Interpretation and review of laboratory results Abnormal [facility] Potassium [Moles/Vol] 5.4 mmol/L High 3.7 - 5.3 mmol/L [facility] Sodium [Moles/Vol] 137 mmol/L 135 - 144 mmol/L [facility] Urea nitrogen (BldV) [Mass/Vol] 21 mg/dL High 6 - 20 mg/dL [facility] Albuminon 09-28-2021 Albumin [Mass/Vol] 4.2 g/dL 3.5 - 5.2 g/dL [facility] Basic Metabolic Panelon 09-04 Anion gap [Moles/Vol] 11 mmol/L 9 - 17 mmol/L [facility] Calcium [Mass/Vol] 11.5 mg/dL High 8.6 - 10. 4 mg/dL [facility] Chloride [Moles/Vol] 107 mmol/L 98 - 10 7 mmol/L [facility] CO2 [Moles/Vol] 21 mmol/L 20 - 31 mmol/L [facility] Creatinine [Mass/Vol] 1.47 mg/dL High 0.7 - 1.2 mg/dL [facility] GFR >60 60 - PI NF mL/min [facility] GFR Non- 54 mL/min Low 60 - PINF mL/min [facility] Glucose [Mass/Vol] 90 mg/dL 70 - 99 mg/dL [facility] Potassium [Moles/Vol] 4.6 mmol/L 3.7 - 5.3 mmol/L [facility] Sodium [Moles/Vol] 139 mmol/L 135 - 144 mmol/L [facility] Urea nitrogen (BldV) [Mass/Vol] 27 mg/dL High 6 - 20 mg/dL [facility] Urea nitrogen/Creatinine (Bld) [Mass ratio] 18 9 - 20 [facility] CBCon 09-28-2021 Hematocrit (Bld) [Volume fraction] 42.5 % 40.7 - 50.3 % [facility] Hemoglobin (Bld) [Mass/Vol] 14.1 g/dL 13 - 17 g/dL [facility] MCH (RBC) [Entitic mass] 28.1 pg 25.2 - 33.5 pg [facility] MCHC (RBC) [Mass/Vol] 33.2 g/dL 28.4 - 34.8 g/dL [facility] MCV (RBC) [Entitic vol] 84.8 fL 82.6 - 102.9 fL [facility] NRBC Automated 0.0 0.0 per 100 WBC [facility] Platelet distribution width (Bld) [Ratio] 12.7 % 11.8 - 14.4 % [facility] Platelet mean volume (Bld) [Entitic vol] 9.3 fL 8.1 - 13.5 fL [facility] Platelets (Bld) [#/Vol] 257 10*3/uL [facility] RBC (Bld) [#/Vol] 5.01 10*6/uL 4.21 - 5.7 7 m/uL [facility] WBC (Bld) [#/Vol] 6.3 10*3/uL [facility] Calcium, Ionizedon 2 Calcium, Ionized 1.6 mmol/L High 1.13 - 1.33 mmol/L [facility] Interpretation and review of laboratory results Abnormal [facility] Laboratory - Chemistry and C hemistry - challengeon 09-28-2021 GFR/1.73 sq M.predicted MDRD (S/P/Bld) [Vol rate/Area] [facility] Comment on above: Average GFR for 30-3 9 years old: 107 mL/min/1.73sq m Chronic Kidney Disease: <60 mL/min/1.73sq m Kidney failure: <15 mL/min/1.73sq m eGFR calculated using average adult body mass. Additional eGFR calculator available at: http://www.Weave.MyUS.com/multiple_crcl_2012.htm Stage 1: Some kidney damage normal GFR Stage 2: Mild kidney damage GFR 60-89 Stage 3: Moderate kidney damage GFR 30-59 Stage 4: Severe kidney damage GFR 15-29 Stage 5: Severe kidney damage GFR <15 ESRD - chronic treatment by dialysis or transplant No Panel Informationon 09-28 Interpretation and review of laboratory results Abnormal [facility] [employer] PTH, [place] 09-28-2021 Interpretation and review of laboratory results Abnormal [facility] Pth Intact 108.2 pg/mL High 15 - 65 pg/mL [facility] Comment on above: SAMPLES FROM PATIENT S ROUTINELY RECEIVING HIGH DOSE BIOTIN THERAPY MAY SHOW FALSELY DEPRESSED RESULTS. ADDITIONAL INFORMATION MAY BE REQUIRED FOR DIAGNOSIS. [facility] Phosphoruson 09-28-2021 Phosphate [Mass/Vol] 2.4 mg/dL Low 2.5 - 4 .5 mg/dL [facility] [employer] Protein / creatinine ratio, urineon 09-28-2021 Creatinine, Ur 112.4 mg/dL 39 - 259 mg/dL [facility] Interpretation and review of laboratory results Abnormal [facility] [employer] Protein (U) [Mass/Vol] 95 mg/dL [facility] [employer] Comment on above: No normal range esta blished. Urine Total Protein Creatinine Ratio 0.85 High 0 - 0.2 [facility] TalkSessionATRIUM HEALTHLookIt Basic Metabolic Panelon 09-03 Anion gap [Moles/Vol] 9 mmol/L 9 - 17 mmol/L [facility] [employer] Calcium [Mass/Vol] 8.6 mg/dL 8.6 - 10. 4 mg/dL [facility] [employer] Chloride [Moles/Vol] 111 mmol/L High 98 - 10 7 mmol/L [facility] [employer] [facility] CO2 [Moles/Vol] 21 mmol/L 20 - 31 mmol/L [facility] Creatinine [Mass/Vol] 1.31 mg/dL High 0.7 - 1.2 mg/dL [facility] GFR >60 60 - PI NF mL/min [facility] [employer] GFR Non- >60 60 - PINF mL/min [facility] [employer] Glucose [Mass/Vol] 98 mg/dL 70 - 99 mg/dL [facility] Interpretation and review of laboratory results Abnormal [facility] [facility] Potassium [Moles/Vol] 4.7 mmol/L 3.7 - 5.3 mmol/L [facility] Sodium [Moles/Vol] 141 mmol/L 135 - 144 mmol/L [facility] Urea nitrogen (BldV) [Mass/Vol] 15 mg/dL 6 - 20 mg/dL [facility] Urea nitrogen/Creatinine (Bld) [Mass ratio] 11 9 - 20 [facility] Laboratory - Chemistry and C hemistry - challengeon 09-17-2021 GFR/1.73 sq M.predicted MDRD (S/P/Bld) [Vol rate/Area] [facility] Comment on above: Average GFR for 30-3 9 years old: 107 mL/min/1.73sq m Chronic Kidney Disease: <60 mL/min/1.73sq m Kidney failure: <15 mL/min/1.73sq m eGFR calculated using average adult body mass. Additional eGFR calculator available at: http://www.Pinterest/multiple_crcl_2012.htm Stage 1: Some kidney damage normal GFR Stage 2: Mild kidney damage GFR 60-89 Stage 3: Moderate kidney damage GFR 30-59 Stage 4: Severe kidney damage GFR 15-29 Stage 5: Severe kidney damage GFR <15 ESRD - chronic treatment by dialysis or transplant CBC with Auto Differentialon 09-12-2021 Absolute Eos # 0.22 [facility] Absolute Immature Granulocyte <0.03 [facility] Absolute Lymph # 2.23 [facility] Absolute [place] # 0.70 [facility] Basophils (Bld) [#/Vol] 0.06 10*3/uL [facility] Basophils/100 WBC (Bld) 1 % 0 - 2 % B [facility] Eosinophils/100 WBC (Bld) 3 % 1 - 4 % [facility] Hematocrit (Bld) [Volume fraction] 38.9 % Low 40.7 - 50.3 % [facility] Hemoglobin (Bld) [Mass/Vol] 12.4 g/dL Low 13.0 - 17.0 g/dL [facility] Immature granulocytes/100 WBC (Bld) 0 % 0 [facility] Interpretation and review of laboratory results Abnormal [facility] Lymphocytes/100 WBC (Bld) 32 % 24 - 43 % [facility] MCH (RBC) [Entitic mass] 28.6 pg 25.2 - 33.5 pg [facility] MCHC (RBC) [Mass/Vol] 31.9 g/dL 28.4 - 34.8 g/dL [facility] MCV (RBC) [Entitic vol] 89.8 fL 82.6 - 102.9 fL [facility] Monocytes/100 WBC (Bld) 10 % 3 - 12 % B ON [facility] NRBC Automated 0.0 0.0 per 100 WBC [facility] Platelet distribution width (Bld) [Ratio] 12.7 % 11.8 - 14.4 % [facility] Platelet mean volume (Bld) [Entitic vol] 10.6 fL 8.1 - 13.5 fL [facility] Platelets (Bld) [#/Vol] 319 10*3/uL [facility] RBC (Bld) [#/Vol] 4.33 10*6/uL 4.21 - 5.7 7 m/uL [facility] Seg Neutrophils 54 % 36 - 65 % [facility] Segs Absolute 3.69 [facility] WBC (Bld) [#/Vol] 6.9 10*3/uL [facility] Basic Metabolic Panelon 07-0 Anion gap [Moles/Vol] 13 mmol/L 9 - 17 mmol/L [facility] Calcium [Mass/Vol] 8.7 mg/dL 8.6 - 10. 4 mg/dL [facility] Chloride [Moles/Vol] 104 mmol/L 98 - 10 7 mmol/L [facility] CO2 [Moles/Vol] 20 mmol/L 20 - 31 mmol/L [facility] Creatinine [Mass/Vol] 1.82 mg/dL High 0.70 - 1.20 mg/dL [facility] GFR 51 mL/min Low >60 [facility] GFR Non- 42 mL/min Low >60 [facility] GFR/1.73 sq M.predicted MDRD (S/P/Bld) [Vol rate/Area] [facility] Glucose [Mass/Vol] 167 mg/dL High 70 - 99 mg/dL [facility] Interpretation and review of laboratory results Abnormal [facility] Potassium [Moles/Vol] 3.6 mmol/L Low 3.7 - 5.3 mmol/L [facility] Sodium [Moles/Vol] 137 mmol/L 135 - 144 mmol/L [facility] Urea nitrogen (BldV) [Mass/Vol] 30 mg/dL High 6 - 20 mg/dL [facility] CBC with Auto Differentialon 09-11-2021 Absolute Eos # 0.08 [facility] Absolute Immature Granulocyte 0.04 [facility] Absolute Lymph # 1.41 [facility] Absolute [place] # 0.92 [facility] Basophils (Bld) [#/Vol] 0.06 10*3/uL [facility] Basophils/100 WBC (Bld) 1 % 0 - 2 % B ON [facility] Eosinophils/100 WBC (Bld) 1 % 1 - 4 % [facility] Hematocrit (Bld) [Volume fraction] 38.5 % Low 40.7 - 50.3 % [facility] Hemoglobin (Bld) [Mass/Vol] 12.9 g/dL Low 13.0 - 17.0 g/dL [facility] Immature granulocytes/100 WBC (Bld) 1 % High 0 [facility] Interpretation and review of laboratory results Abnormal [facility] Lymphocytes/100 WBC (Bld) 16 % Low 24 - 43 % [facility] MCH (RBC) [Entitic mass] 28.9 pg 25.2 - 33.5 pg [facility] MCHC (RBC) [Mass/Vol] 33.5 g/dL 28.4 - 34.8 g/dL [facility] MCV (RBC) [Entitic vol] 86.1 fL 82.6 - 102.9 fL [facility] Monocytes/100 WBC (Bld) 11 % 3 - 12 % B ON [facility] NRBC Automated 0.0 0.0 per 100 WBC [facility] Platelet distribution width (Bld) [Ratio] 12.4 % 11.8 - 14.4 % [facility] Platelet mean volume (Bld) [Entitic vol] 10.5 fL 8.1 - 13.5 fL [facility] Platelets (Bld) [#/Vol] 316 10*3/uL [facility] RBC (Bld) [#/Vol] 4.47 10*6/uL 4.21 - 5.7 7 m/uL [facility] Seg Neutrophils 70 % High 36 - 65 % [facility] Segs Absolute 6.22 [facility] WBC (Bld) [#/Vol] 8.7 10*3/uL [facility] CT CHEST WO CONTRASTon 09-11 MHPN RIS CONSOLIDATED MHPN RIS CONSOLIDATED [facility] Work Phone: Radiology Study observation (narrative) [facility] [employer] Work Phone: CT CHEST WO CONTRASTOrdered By: Salty Gee on 09-11-2021 [facility] [employer] Work Phone: AFP Tumor Markeron AFP (Alpha Fetoprotein) 1.5 ug/L <8.4 B ON [facility]SessionBLANCH[facility] Basic Metabolic Panel w/ Ref oscar to MGon 09-10-2021 Anion gap [Moles/Vol] 10 mmol/L 9 - 17 mmol/L [facility] Calcium [Mass/Vol] 10.4 mg/dL 8.6 - 10. 4 mg/dL [facility] Chloride [Moles/Vol] 106 mmol/L 98 - 10 7 mmol/L [facility] CO2 [Moles/Vol] 26 mmol/L 20 - 31 mmol/L [facility] Creatinine [Mass/Vol] 1.84 mg/dL High 0.70 - 1.20 mg/dL [facility] GFR 50 mL/min Low >60 [facility] [employer] GFR Non- 42 mL/min Low >60 [facility] GFR/1.73 sq M.predicted MDRD (S/P/Bld) [Vol rate/Area] [facility] Glucose [Mass/Vol] 83 mg/dL 70 - 99 mg/dL [facility] Interpretation and review of laboratory results Abnormal [facility] Potassium [Moles/Vol] 4.0 mmol/L 3.7 - 5.3 mmol/L [facility] Sodium [Moles/Vol] 142 mmol/L 135 - 144 mmol/L [facility] Urea nitrogen (BldV) [Mass/Vol] 39 mg/dL High 6 - 20 mg/dL [facility] CBC with Auto Differentialon 09-10-2021 Absolute Eos # 0.27 [facility] Absolute Immature Granulocyte 0.04 [facility] Absolute Lymph # 2.10 [facility] Absolute [place] # 0.67 [facility] Basophils (Bld) [#/Vol] 0.07 10*3/uL [facility] Basophils/100 WBC (Bld) 1 % 0 - 2 % B ON [facility] Eosinophils/100 WBC (Bld) 3 % 1 - 4 % [facility] Hematocrit (Bld) [Volume fraction] 41.5 % 40.7 - 50.3 % [facility] Hemoglobin (Bld) [Mass/Vol] 13.3 g/dL 13.0 - 17.0 g/dL [facility] Immature granulocytes/100 WBC (Bld) 1 % High 0 [facility] Interpretation and review of laboratory results Abnormal [facility] Lymphocytes/100 WBC (Bld) 24 % 24 - 43 % [facility] MCH (RBC) [Entitic mass] 28.5 pg 25.2 - 33.5 pg [facility] MCHC (RBC) [Mass/Vol] 32.0 g/dL 28.4 - 34.8 g/dL [facility] MCV (RBC) [Entitic vol] 88.9 fL 82.6 - 102.9 fL [facility] Monocytes/100 WBC (Bld) 8 % 3 - 12 % B ON [facility] NRBC Automated 0.0 0.0 per 100 WBC [facility] Platelet distribution width (Bld) [Ratio] 12.3 % 11.8 - 14.4 % [facility] Platelet mean volume (Bld) [Entitic vol] 10.1 fL 8.1 - 13.5 fL [facility] Platelets (Bld) [#/Vol] 370 10*3/uL [facility] RBC (Bld) [#/Vol] 4.67 10*6/uL 4.21 - 5.7 7 m/uL [facility] Seg Neutrophils 63 % 36 - 65 % [facility] Segs Absolute 5.44 [facility] WBC (Bld) [#/Vol] 8.6 10*3/uL [facility] Vitamin D 25 Hydroxyon 09-10 Interpretation and review of laboratory results Abnormal [facility] Vit D, 25-Hydroxy 12.9 ng/mL Low >29.9 [facility] Basic Metabolic Panel w/ Ref oscar to MGon 09-09-2021 Anion gap [Moles/Vol] 13 mmol/L 9 - 17 mmol/L [facility] Calcium [Mass/Vol] 10.7 mg/dL High 8.6 - 10. 4 mg/dL [facility] Chloride [Moles/Vol] 100 mmol/L 98 - 10 7 mmol/L [facility] CO2 [Moles/Vol] 26 mmol/L 20 - 31 mmol/L [facility] Creatinine [Mass/Vol] 2.12 mg/dL High 0.70 - 1.20 mg/dL [facility] GFR 43 mL/min Low >60 [facility] GFR Non- 35 mL/min Low >60 [facility] GFR/1.73 sq M.predicted MDRD (S/P/Bld) [Vol rate/Area] [facility] Glucose [Mass/Vol] 110 mg/dL High 70 - 99 mg/dL [facility] Interpretation and review of laboratory results Abnormal [facility] Potassium [Moles/Vol] 3.6 mmol/L Low 3.7 - 5.3 mmol/L [facility] Sodium [Moles/Vol] 139 mmol/L 135 - 144 mmol/L [facility] Urea nitrogen (BldV) [Mass/Vol] 41 mg/dL High 6 - 20 mg/dL [facility] CBC with Auto Differentialon 09-09-2021 Absolute Eos # 0.26 [facility] Absolute Immature Granulocyte 0.03 [facility] Absolute Lymph # 3.18 [facility] Absolute [place] # 0.97 [facility] Basophils (Bld) [#/Vol] 0.08 10*3/uL [facility] Basophils/100 WBC (Bld) 1 % 0 - 2 % B ON [facility] Eosinophils/100 WBC (Bld) 3 % 1 - 4 % [facility] Hematocrit (Bld) [Volume fraction] 40.3 % Low 40.7 - 50.3 % [facility] Hemoglobin (Bld) [Mass/Vol] 13.0 g/dL 13.0 - 17.0 g/dL [facility] Immature granulocytes/100 WBC (Bld) 0 % 0 [facility] Interpretation and review of laboratory results Abnormal [facility] Lymphocytes/100 WBC (Bld) 34 % 24 - 43 % [facility] MCH (RBC) [Entitic mass] 28.4 pg 25.2 - 33.5 pg [facility] MCHC (RBC) [Mass/Vol] 32.3 g/dL 28.4 - 34.8 g/dL [facility] MCV (RBC) [Entitic vol] 88.2 fL 82.6 - 102.9 fL [facility] Monocytes/100 WBC (Bld) 11 % 3 - 12 % B ON [facility] NRBC Automated 0.0 0.0 per 100 WBC [facility] Platelet distribution width (Bld) [Ratio] 12.2 % 11.8 - 14.4 % [facility] Platelet mean volume (Bld) [Entitic vol] 11.5 fL 8.1 - 13.5 fL [facility] Platelets (Bld) [#/Vol] 401 10*3/uL [facility] RBC (Bld) [#/Vol] 4.57 10*6/uL 4.21 - 5.7 7 m/uL [facility] Seg Neutrophils 51 % 36 - 65 % [facility] Segs Absolute 4.72 [facility] WBC (Bld) [#/Vol] 9.2 10*3/uL [facility] SPECIMEN REJECTIONon 022 Ordered Test BMPX [facility] Reason for Rejection Unable to perform testing: Specimen hemolyzed. [facility] Specimen source Nom (Unsp spec) .BLOOD [facility] Ordered Test BMPX [facility] Reason for Rejection Unable to perform testing: Specimen hemolyzed. [facility] Specimen source Nom (Unsp spec) .BLOOD [facility] Basic Metabolic Panel w/ Ref oscar to MGon 09-08-2021 Anion gap [Moles/Vol] 14 mmol/L 9 - 17 mmol/L [facility] Calcium [Mass/Vol] 10.4 mg/dL 8.6 - 10. 4 mg/dL [facility] Chloride [Moles/Vol] 102 mmol/L 98 - 10 7 mmol/L [facility] CO2 [Moles/Vol] 23 mmol/L 20 - 31 mmol/L [facility] Creatinine [Mass/Vol] 1.82 mg/dL High 0.70 - 1.20 mg/dL [facility] GFR 51 mL/min Low >60 [facility] GFR Non- 42 mL/min Low >60 [facility] GFR/1.73 sq M.predicted MDRD (S/P/Bld) [Vol rate/Area] [facility] Glucose [Mass/Vol] 141 mg/dL High 70 - 99 mg/dL [facility] Interpretation and review of laboratory results Abnormal [facility] Potassium [Moles/Vol] 3.7 mmol/L 3.7 - 5.3 mmol/L [facility] Sodium [Moles/Vol] 139 mmol/L 135 - 144 mmol/L [facility] Urea nitrogen (BldV) [Mass/Vol] 37 mg/dL High 6 - 20 mg/dL [facility] Anion gap [Moles/Vol] 11 mmol/L 9 - 17 mmol/L [facility] Calcium [Mass/Vol] 10.5 mg/dL High 8.6 - 10. 4 mg/dL [facility] Chloride [Moles/Vol] 106 mmol/L 98 - 10 7 mmol/L [facility] CO2 [Moles/Vol] 27 mmol/L 20 - 31 mmol/L [facility] Creatinine [Mass/Vol] 1.95 mg/dL High 0.70 - 1.20 mg/dL [facility] GFR 47 mL/min Low >60 [facility] GFR Non- 39 mL/min Low >60 [facility] GFR/1.73 sq M.predicted MDRD (S/P/Bld) [Vol rate/Area] [facility] Glucose [Mass/Vol] 130 mg/dL High 70 - 99 mg/dL [facility] Interpretation and review of laboratory results Abnormal [facility] Potassium [Moles/Vol] 3.2 mmol/L Low 3.7 - 5.3 mmol/L [facility] Sodium [Moles/Vol] 144 mmol/L 135 - 144 mmol/L [facility] Urea nitrogen (BldV) [Mass/Vol] 40 mg/dL High 6 - 20 mg/dL [facility] C-Reactive Proteinon 022 CRP [Mass/Vol] 29.4 mg/L High 0.0 - 5.0 mg/L [facility] Interpretation and review of laboratory results Abnormal [facility] CBC with Auto Differentialon 09-08-2021 Absolute Eos # 0.12 [facility] Absolute Immature Granulocyte 0.04 [facility] Absolute Lymph # 2.32 [facility] Absolute [place] # 1.03 [facility] Basophils (Bld) [#/Vol] 0.06 10*3/uL [facility] Basophils/100 WBC (Bld) 1 % 0 - 2 % B ON [facility] Eosinophils/100 WBC (Bld) 1 % 1 - 4 % [facility] Hematocrit (Bld) [Volume fraction] 40.7 % 40.7 - 50.3 % [facility] Hemoglobin (Bld) [Mass/Vol] 12.7 g/dL Low 13.0 - 17.0 g/dL [facility] Immature granulocytes/100 WBC (Bld) 0 % 0 [facility] Interpretation and review of laboratory results Abnormal [facility] Lymphocytes/100 WBC (Bld) 23 % Low 24 - 43 % [facility] MCH (RBC) [Entitic mass] 28.6 pg 25.2 - 33.5 pg [facility] MCHC (RBC) [Mass/Vol] 31.2 g/dL 28.4 - 34.8 g/dL [facility] MCV (RBC) [Entitic vol] 91.7 fL 82.6 - 102.9 fL [facility] Monocytes/100 WBC (Bld) 10 % 3 - 12 % B ON [facility] NRBC Automated 0.0 0.0 per 100 WBC [facility] Platelet distribution width (Bld) [Ratio] 12.7 % 11.8 - 14.4 % [facility] Platelet mean volume (Bld) [Entitic vol] 10.7 fL 8.1 - 13.5 fL [facility] Platelets (Bld) [#/Vol] 417 10*3/uL [facility] RBC (Bld) [#/Vol] 4.44 10*6/uL 4.21 - 5.7 7 m/uL [facility] Seg Neutrophils 65 % 36 - 65 % [facility] Segs Absolute 6.35 [facility] WBC (Bld) [#/Vol] 9.9 10*3/uL [facility] COVID-19, Rapidon 09-08-2021 SARS-CoV-2 (COVID-19) RNA VIK+probe Ql (Unsp spec) Not detected Not Detected [facility] Specimen Description .NASOPHARYNGEAL SWAB [facility] Cardiolipin antibody, IgAon 09-08-2021 Anticardiolipin IgA 7.6 [facility] Magnesiumon 09-08-2021 Magnesium [Mass/Vol] 2.3 mg/dL 1.6 - 2 .6 mg/dL [facility] NM PARATHYORID W SPECTon [facility] RIS CONSOLIDATED [facility] RIS CONSOLIDATED [facility] Work Phone: Radiology Study observation (narrative) [employer] Work Phone: NM PARATHYORID W SPECTOrdere d By: Lyndon Magaña on 09-08-2021 [facility] [employer] Work Phone: No Panel Informationon 09-08 [facility] RIS CONSOLIDATED [facility] RIS CONSOLIDATED [facility] Work Phone: [facility] [employer] Work Phone: Radiology Study observation (narrative) [facility] [employer] Work Phone: Sedimentation Rateon 022 Interpretation and review of laboratory results Abnormal [facility] [employer] Sed Rate 60 High [facility] TSH with Reflexon 09-08-2021 TSH Qn 0.82 m[IU]/L [facility] Basic Metabolic Panel w/ Ref oscar to MGon 09-07-2021 Anion gap [Moles/Vol] 12 mmol/L 9 - 17 mmol/L [facility] Calcium [Mass/Vol] 10.3 mg/dL 8.6 - 10. 4 mg/dL [facility] Chloride [Moles/Vol] 106 mmol/L 98 - 10 7 mmol/L [facility] CO2 [Moles/Vol] 27 mmol/L 20 - 31 mmol/L [facility] [employer] Creatinine [Mass/Vol] 1.99 mg/dL High 0.70 - 1.20 mg/dL [facility] [employer] GFR 46 mL/min Low >60 [facility] GFR Non- 38 mL/min Low >60 [facility] GFR/1.73 sq M.predicted MDRD (S/P/Bld) [Vol rate/Area] [facility] Glucose [Mass/Vol] 124 mg/dL High 70 - 99 mg/dL [facility] Interpretation and review of laboratory results Abnormal [facility] Potassium [Moles/Vol] 3.5 mmol/L Low 3.7 - 5.3 mmol/L [facility] Sodium [Moles/Vol] 145 mmol/L High 135 - 144 mmol/L [facility] Urea nitrogen (BldV) [Mass/Vol] 42 mg/dL High 6 - 20 mg/dL [facility] Anion gap [Moles/Vol] 14 mmol/L 9 - 17 mmol/L [facility] Calcium [Mass/Vol] 10.5 mg/dL High 8.6 - 10. 4 mg/dL [facility] Chloride [Moles/Vol] 110 mmol/L High 98 - 10 7 mmol/L [facility] CO2 [Moles/Vol] 26 mmol/L 20 - 31 mmol/L [facility] Creatinine [Mass/Vol] 1.74 mg/dL High 0.70 - 1.20 mg/dL [facility] GFR 54 mL/min Low >60 [facility] GFR Non- 44 mL/min Low >60 [facility] GFR/1.73 sq M.predicted MDRD (S/P/Bld) [Vol rate/Area] [facility] Glucose [Mass/Vol] 121 mg/dL High 70 - 99 mg/dL [facility] Interpretation and review of laboratory results Abnormal [facility] Potassium [Moles/Vol] 3.9 mmol/L 3.7 - 5.3 mmol/L [facility] Sodium [Moles/Vol] 150 mmol/L High 135 - 144 mmol/L [facility] Urea nitrogen (BldV) [Mass/Vol] 46 mg/dL High 6 - 20 mg/dL [facility] CBC with Auto Differentialon 09-07-2021 Absolute Eos # 0.05 [facility] Absolute Immature Granulocyte 0.04 [facility] Absolute Lymph # 1.59 [facility] Absolute [place] # 0.83 [facility] Basophils (Bld) [#/Vol] 0.06 10*3/uL [facility] Basophils/100 WBC (Bld) 1 % 0 - 2 % B ON [facility] Eosinophils/100 WBC (Bld) 1 % 1 - 4 % [facility] Hematocrit (Bld) [Volume fraction] 40.8 % 40.7 - 50.3 % [facility] Hemoglobin (Bld) [Mass/Vol] 13.3 g/dL 13.0 - 17.0 g/dL [facility] Immature granulocytes/100 WBC (Bld) 0 % 0 [facility] Interpretation and review of laboratory results Abnormal [facility] Lymphocytes/100 WBC (Bld) 16 % Low 24 - 43 % [facility] MCH (RBC) [Entitic mass] 28.7 pg 25.2 - 33.5 pg [facility] MCHC (RBC) [Mass/Vol] 32.6 g/dL 28.4 - 34.8 g/dL [facility] MCV (RBC) [Entitic vol] 88.1 fL 82.6 - 102.9 fL [facility] Monocytes/100 WBC (Bld) 9 % 3 - 12 % B ON [facility] NRBC Automated 0.0 0.0 per 100 WBC [facility] Platelet distribution width (Bld) [Ratio] 12.5 % 11.8 - 14.4 % [facility] Platelet mean volume (Bld) [Entitic vol] 10.0 fL 8.1 - 13.5 fL [facility] Platelets (Bld) [#/Vol] 428 10*3/uL [facility] RBC (Bld) [#/Vol] 4.63 10*6/uL 4.21 - 5.7 7 m/uL [facility] Seg Neutrophils 73 % High 36 - 65 % [facility] Segs Absolute 7.15 [facility] WBC (Bld) [#/Vol] 9.7 10*3/uL [facility] Magnesiumon 09-07-2021 Magnesium [Mass/Vol] 2.4 mg/dL 1.6 - 2 .6 mg/dL [facility] PTH, Intact with Ionized Crispin ciumon 09-07-2021 Calcium [Moles/Vol] 1.46 mmol/L High 1.13 - 1 .33 mmol/L [facility] Interpretation and review of laboratory results Abnormal [facility] Pth Intact 141.5 pg/mL High 15.0 - 65.0 pg/mL [facility] Arterial Blood Gas, POCon Dwight Test Positive [facility] FIO2 40.0 [facility] HCO3 (Bld) [Moles/Vol] 29.3 mmol/L High 21.0 - 28.0 mmol/L [facility] Mode PRVC [facility] O2 Device/Flow/% Adult [facility]il[facility] [facility] Oxygen saturation in Blood 98 % 94.0 - 98.0 % [facility] POC pCO2 48.2 High [facility] POC pH 7.392 [facility] POC PO2 98.0 [facility] Positive Base Excess, Art 4 High [facility] Sample Site Right Radial Artery [facility] Basic Metabolic Panel w/ Ref oscar to MGon 09-06-2021 Anion gap [Moles/Vol] 13 mmol/L 9 - 17 mmol/L [facility] Calcium [Mass/Vol] 11.0 mg/dL High 8.6 - 10. 4 mg/dL [facility] Chloride [Moles/Vol] 109 mmol/L High 98 - 10 7 mmol/L [facility] CO2 [Moles/Vol] 25 mmol/L 20 - 31 mmol/L [facility] Creatinine [Mass/Vol] 1.78 mg/dL High 0.70 - 1.20 mg/dL [facility] GFR 52 mL/min Low >60 [facility] GFR Non- 43 mL/min Low >60 [facility] GFR/1.73 sq M.predicted MDRD (S/P/Bld) [Vol rate/Area] [facility] Glucose [Mass/Vol] 121 mg/dL High 70 - 99 mg/dL [facility] Interpretation and review of laboratory results Abnormal [facility] Potassium [Moles/Vol] 4.1 mmol/L 3.7 - 5.3 mmol/L [facility] Sodium [Moles/Vol] 147 mmol/L High 135 - 144 mmol/L [facility] Urea nitrogen (BldV) [Mass/Vol] 55 mg/dL High 6 - 20 mg/dL [facility] CBC with Auto Differentialon 09-06-2021 Absolute Eos # 0.22 [facility] Absolute Immature Granulocyte <0.03 [facility] Absolute Lymph # 1.59 [facility] URS [facility] Absolute [place] # 1.20 [facility] Basophils (Bld) [#/Vol] 0.06 10*3/uL [facility] Basophils/100 WBC (Bld) 1 % 0 - 2 % B [facility] Eosinophils/100 WBC (Bld) 2 % 1 - 4 % [facility] Hematocrit (Bld) [Volume fraction] 40.1 % Low 40.7 - 50.3 % [facility] Hemoglobin (Bld) [Mass/Vol] 12.8 g/dL Low 13.0 - 17.0 g/dL [facility] Immature granulocytes/100 WBC (Bld) 0 % 0 [facility] Interpretation and review of laboratory results Abnormal [facility] Lymphocytes/100 WBC (Bld) 16 % Low 24 - 43 % [facility] MCH (RBC) [Entitic mass] 28.8 pg 25.2 - 33.5 pg [facility] MCHC (RBC) [Mass/Vol] 31.9 g/dL 28.4 - 34.8 g/dL [facility] MCV (RBC) [Entitic vol] 90.1 fL 82.6 - 102.9 fL [facility] Monocytes/100 WBC (Bld) 12 % 3 - 12 % B ON [facility] NRBC Automated 0.0 0.0 per 100 WBC [facility] Platelet distribution width (Bld) [Ratio] 12.2 % 11.8 - 14.4 % [facility] Platelet mean volume (Bld) [Entitic vol] 10.3 fL 8.1 - 13.5 fL [facility] Platelets (Bld) [#/Vol] 357 10*3/uL [facility] RBC (Bld) [#/Vol] 4.45 10*6/uL 4.21 - 5.7 7 m/uL [facility] Seg Neutrophils 69 % High 36 - 65 % [facility] Segs Absolute 6.61 [facility] WBC (Bld) [#/Vol] 9.7 10*3/uL [facility] No Panel Informationon 09-06 Interpretation and review of laboratory results Abnormal [facility] POCT Glucoseon 09-06-2021 Glucose [Mass/Vol] 117 mg/dL High 74 - 100 mg/dL [facility] BLOOD GAS, VENOUSon 09-06-19 22 Carboxyhemoglobin 1.7 % 0 - 5 % [facility] FIO2 INFORMATION NOT PROVIDED [facility] HCO3 (Bld) [Moles/Vol] 28.3 mmol/L 24 - 30 mmol/L [facility] Interpretation and review of laboratory results Abnormal [facility] Oxygen saturation in Blood 81.8 % 60.0 - 85.0 % [facility] pCO2, Silas 52.9 [facility] pH, Silas 7.348 [facility] pO2, Silas 45.9 [facility] Positive Base Excess, Silas 2.2 mmol/L High 0.0 - 2.0 mmol/L [facility] Pt Temp 37.0 [facility] Basic Metabolic Panel w/ Ref oscar to MGon 09-05-2021 Anion gap [Moles/Vol] 8 mmol/L Low 9 - 17 mmol/L [facility] Calcium [Mass/Vol] 10.7 mg/dL High 8.6 - 10. 4 mg/dL [facility] Chloride [Moles/Vol] 109 mmol/L High 98 - 10 7 mmol/L [facility] CO2 [Moles/Vol] 28 mmol/L 20 - 31 mmol/L [facility] Creatinine [Mass/Vol] 1.8 mg/dL High 0.70 - 1.20 mg/dL [facility] GFR 52 mL/min Low >60 [facility] GFR Non- 43 mL/min Low >60 [facility] GFR/1.73 sq M.predicted MDRD (S/P/Bld) [Vol rate/Area] [facility] Glucose [Mass/Vol] 123 mg/dL High 70 - 99 mg/dL [facility] Interpretation and review of laboratory results Abnormal [facility] Potassium [Moles/Vol] 4.0 mmol/L 3.7 - 5.3 mmol/L [facility] Sodium [Moles/Vol] 145 mmol/L High 135 - 144 mmol/L [facility] Urea nitrogen (BldV) [Mass/Vol] 49 mg/dL High 6 - 20 mg/dL [facility] CBC with Auto Differentialon 09-05-2021 Absolute Eos # 0.32 [facility] Absolute Immature Granulocyte <0.03 [facility] Absolute Lymph # 1.91 [facility] Absolute [place] # 1.05 [facility] Basophils (Bld) [#/Vol] 0.06 10*3/uL [facility] Basophils/100 WBC (Bld) 1 % 0 - 2 % B [facility] Eosinophils/100 WBC (Bld) 4 % 1 - 4 % [facility] Hematocrit (Bld) [Volume fraction] 38.1 % Low 40.7 - 50.3 % [facility] Hemoglobin (Bld) [Mass/Vol] 12.0 g/dL Low 13.0 - 17.0 g/dL [facility] Immature granulocytes/100 WBC (Bld) 0 % 0 [facility] Interpretation and review of laboratory results Abnormal [facility] Lymphocytes/100 WBC (Bld) 24 % 24 - 43 % [facility] MCH (RBC) [Entitic mass] 28.6 pg 25.2 - 33.5 pg [facility] MCHC (RBC) [Mass/Vol] 31.5 g/dL 28.4 - 34.8 g/dL [facility] MCV (RBC) [Entitic vol] 90.9 fL 82.6 - 102.9 fL [facility] Monocytes/100 WBC (Bld) 13 % High 3 - 12 % B ON [facility] NRBC Automated 0.0 0.0 per 100 WBC [facility] Platelet distribution width (Bld) [Ratio] 12.5 % 11.8 - 14.4 % [facility] Platelet mean volume (Bld) [Entitic vol] 10.3 fL 8.1 - 13.5 fL [facility] Platelets (Bld) [#/Vol] 305 10*3/uL [facility] RBC (Bld) [#/Vol] 4.19 10*6/uL Low 4.21 - 5.7 7 m/uL [facility] Seg Neutrophils 58 % 36 - 65 % [facility] Segs Absolute 4.65 [facility] WBC (Bld) [#/Vol] 8.0 10*3/uL [facility] Culture, Blood 1on 2 Bacteria identified Cx Nom (Unsp spec) NO GROWTH 5 DAYS [facility] Specimen Description .BLOOD [facility] Bacteria identified Cx Nom (Unsp spec) NO GROWTH 5 DAYS [facility] Specimen Description .BLOOD [facility] Arterial Blood Gas, POCon Dwight Test Positive [facility] FIO2 30.0 [facility] HCO3 (Bld) [Moles/Vol] 27.5 mmol/L 21.0 - 28.0 mmol/L [facility] Oxygen saturation in Blood 93 % Low 94.0 - 98.0 % [facility] POC pCO2 47.3 [facility] POC pH 7.372 [facility] POC PO2 70.5 Low [facility] Positive Base Excess, Art 2 [facility] Sample Site Right Radial Artery [facility] Basic Metabolic Panel w/ Ref oscar to MGon 09-04-2021 Anion gap [Moles/Vol] 14 mmol/L 9 - 17 mmol/L [facility] Calcium [Mass/Vol] 10.3 mg/dL 8.6 - 10. 4 mg/dL [facility] Chloride [Moles/Vol] 107 mmol/L 98 - 10 7 mmol/L [facility] CO2 [Moles/Vol] 21 mmol/L 20 - 31 mmol/L [facility] Creatinine [Mass/Vol] 1.93 mg/dL High 0.70 - 1.20 mg/dL [facility] GFR 48 mL/min Low >60 [facility] GFR Non- 39 mL/min Low >60 [facility] GFR/1.73 sq M.predicted MDRD (S/P/Bld) [Vol rate/Area] [facility] Glucose [Mass/Vol] 138 mg/dL High 70 - 99 mg/dL [facility] Interpretation and review of laboratory results Abnormal [facility] Potassium [Moles/Vol] 4.4 mmol/L 3.7 - 5.3 mmol/L [facility] Sodium [Moles/Vol] 142 mmol/L 135 - 144 mmol/L [facility] Urea nitrogen (BldV) [Mass/Vol] 38 mg/dL High 6 - 20 mg/dL [facility] CBC with Auto Differentialon 09-04-2021 Absolute Eos # 0.21 [facility] Absolute Immature Granulocyte 0.03 [facility] Absolute Lymph # 0.95 Low [facility] Absolute [place] # 0.90 [facility] Basophils (Bld) [#/Vol] 0.05 10*3/uL [facility] Basophils/100 WBC (Bld) 1 % 0 - 2 % B [facility] Eosinophils/100 WBC (Bld) 2 % 1 - 4 % [facility] Hematocrit (Bld) [Volume fraction] 36.9 % Low 40.7 - 50.3 % [facility] Hemoglobin (Bld) [Mass/Vol] 12.1 g/dL Low 13.0 - 17.0 g/dL [facility] Immature granulocytes/100 WBC (Bld) 0 % 0 [facility] Interpretation and review of laboratory results Abnormal [facility] Lymphocytes/100 WBC (Bld) 10 % Low 24 - 43 % [facility] MCH (RBC) [Entitic mass] 30.3 pg 25.2 - 33.5 pg [facility] MCHC (RBC) [Mass/Vol] 32.8 g/dL 28.4 - 34.8 g/dL [facility] MCV (RBC) [Entitic vol] 92.3 fL 82.6 - 102.9 fL [facility] Monocytes/100 WBC (Bld) 10 % 3 - 12 % B [facility] NRBC Automated 0.0 0.0 per 100 WBC [facility] Platelet distribution width (Bld) [Ratio] 12.5 % 11.8 - 14.4 % [facility] Platelet mean volume (Bld) [Entitic vol] 10.5 fL 8.1 - 13.5 fL [facility] Platelets (Bld) [#/Vol] 403 10*3/uL [facility] RBC (Bld) [#/Vol] 4.00 10*6/uL Low 4.21 - 5.7 7 m/uL [facility] Seg Neutrophils 77 % High 36 - 65 % [facility] Segs Absolute 7.03 [facility] WBC (Bld) [#/Vol] 9.2 10*3/uL [facility] Culture, Blood 1on Bacteria identified Cx Nom (Unsp spec) NO GROWTH 5 DAYS [facility] Special Requests 10ML R ARM [facility] Specimen Description .BLOOD [facility] Culture, Body Fluidon 2021 Bacteria identified Cx Nom (Unsp spec) NO GROWTH 6 DAYS [facility] Direct Exam RARE NEUTROPHILS Abnormal [facility] Direct Exam NO BACTERIA SEEN [facility] Direct Exam Gram stain made from cytocentrifuged specimen. Organisms and cells will be concentrated. [facility] Interpretation and review of laboratory results Abnormal [facility] Specimen Description .FLUID .PERICARDIAL FLUID [facility] Electrolyte Panel w/ Reflex to MGon 09-04-2021 Anion gap [Moles/Vol] 11 mmol/L 9 - 17 mmol/L [facility] Chloride [Moles/Vol] 106 mmol/L 98 - 10 7 mmol/L [facility] CO2 [Moles/Vol] 26 mmol/L 20 - 31 mmol/L [facility] Potassium [Moles/Vol] 4.3 mmol/L 3.7 - 5.3 mmol/L [facility] Sodium [Moles/Vol] 143 mmol/L 135 - 144 mmol/L [facility] HIV Screenon 09-04-2021 HIV Ag/Ab Non-Reactive NONREACTIVE [facility] MRI BRAIN WO CONTRASTon 07-0 [facility] RIS CONSOLIDATED [facility] RIS CONSOLIDATED [facility] Work Phone: MRI BRAIN WO CONTRASTOrdered By: Elias Francis on 09-04-2021 [facility] Work Phone: MRI CERVICAL SPINE WO CONTRA STon 09-04-2021 PN RIS CONSOLIDATED PN RIS CONSOLIDATED [facility] Work Phone: [facility] Work Phone: No Panel Informationon 09-04 Radiology Study observation (narrative) [facility] Work Phone: Interpretation and review of laboratory results Abnormal [facility] POCT Glucoseon 09-04-2021 Glucose [Mass/Vol] 139 mg/dL High 74 - 100 mg/dL [facility] XR CHEST PORTABLEon 09-05-19 [facility] RIS CONSOLIDATED [facility] RIS CONSOLIDATED [employer] Work Phone: XR CHEST PORTABLEOrdered By: Elias Dave on 09-04-2021 [employer] Work Phone: Arterial Blood Gas, POCon Dwight Test Positive [facility] FIO2 30.0 [facility] [employer] [facility] HCO3 (Bld) [Moles/Vol] 23.9 mmol/L 21.0 - 28.0 mmol/L [facility] Interpretation and review of laboratory results Abnormal [facility] Negative Base Excess, Art 2 [facility] O2 Device/Flow/% Adult Ventilator LOIDA [employer] Oxygen saturation in Blood 92 % Low 94.0 - 98.0 % [facility] POC pCO2 46.2 [facility] [employer] POC pH 7.323 Low [facility] POC PO2 70.9 Low [facility] Sample Site Right Radial Artery [facility] Basic Metabolic Panel w/ Ref oscar to MGon 09-03-2021 Anion gap [Moles/Vol] 10 mmol/L 9 - 17 mmol/L [facility] Calcium [Mass/Vol] 10.1 mg/dL 8.6 - 10. 4 mg/dL [facility] Chloride [Moles/Vol] 109 mmol/L High 98 - 10 7 mmol/L [facility] CO2 [Moles/Vol] 21 mmol/L 20 - 31 mmol/L [facility] Creatinine [Mass/Vol] 1.99 mg/dL High 0.70 - 1.20 mg/dL [facility] GFR 46 mL/min Low >60 [facility] GFR Non- 38 mL/min Low >60 [facility] GFR/1.73 sq M.predicted MDRD (S/P/Bld) [Vol rate/Area] [facility] Glucose [Mass/Vol] 83 mg/dL 70 - 99 mg/dL [facility] Interpretation and review of laboratory results Abnormal [facility] Potassium [Moles/Vol] 4.4 mmol/L 3.7 - 5.3 mmol/L [facility] Sodium [Moles/Vol] 140 mmol/L 135 - 144 mmol/L [facility] Urea nitrogen (BldV) [Mass/Vol] 36 mg/dL High 6 - 20 mg/dL [facility] CBC with Auto Differentialon 09-03-2021 Absolute Eos # 0.29 [facility] Absolute Immature Granulocyte 0.03 [facility] Absolute Lymph # 1.71 [facility] Absolute [place] # 0.99 [facility] Basophils (Bld) [#/Vol] 0.04 10*3/uL [facility] Basophils/100 WBC (Bld) 1 % 0 - 2 % B ON [facility] Eosinophils/100 WBC (Bld) 3 % 1 - 4 % [facility] Hematocrit (Bld) [Volume fraction] 39.7 % Low 40.7 - 50.3 % [facility] Hemoglobin (Bld) [Mass/Vol] 12.2 g/dL Low 13.0 - 17.0 g/dL [facility] Immature granulocytes/100 WBC (Bld) 0 % 0 [facility] Interpretation and review of laboratory results Abnormal [facility] Lymphocytes/100 WBC (Bld) 19 % Low 24 - 43 % [facility] MCH (RBC) [Entitic mass] 29.2 pg 25.2 - 33.5 pg [facility] MCHC (RBC) [Mass/Vol] 30.7 g/dL 28.4 - 34.8 g/dL [facility] MCV (RBC) [Entitic vol] 95.0 fL 82.6 - 102.9 fL [facility] Monocytes/100 WBC (Bld) 11 % 3 - 12 % B ON [facility] NRBC Automated 0.0 0.0 per 100 WBC [facility] Platelet distribution width (Bld) [Ratio] 13.2 % 11.8 - 14.4 % [facility] Platelet mean volume (Bld) [Entitic vol] 10.6 fL 8.1 - 13.5 fL [facility] Platelets (Bld) [#/Vol] 244 10*3/uL [facility] RBC (Bld) [#/Vol] 4.18 10*6/uL Low 4.21 - 5.7 7 m/uL [facility] Seg Neutrophils 66 % High 36 - 65 % [facility] Segs Absolute 5.81 [facility] WBC (Bld) [#/Vol] 8.9 10*3/uL [facility] Electrophoresis Protein, Ser umon 09-03-2021 Albumin % 53 % 45 - 65 % [facility] Albumin [Mass/Vol] 3.1 g/dL Low 3.2 - 5.2 g/dL [facility] Alpha 1 % 7 % High 3 - 6 % [facility] Alpha 2 % 13 % 6 - 13 % [facility] Tvfxc-4-Mackzphk 0.4 g/dL 0.1 - 0.4 g/dL [facility] Pracx-2-Qmyxymea 0.8 g/dL 0.5 - 0.9 g/dL [facility] Beta Globulin 0.9 g/dL 0.5 - 1.1 g/dL [facility] Beta Percent 16 % 11 - 19 % [facility] Free PSA/Total PSA [Mass fraction] 5.8 g/dL Low 6.4 - 8.3 g/dL [facility] Gamma Globulin 0.7 g/dL 0.5 - 1.5 g/dL [facility] Gamma Globulin % 11 % 9 - 20 % [facility] Interpretation and review of laboratory results Abnormal [facility] Pathologist Cyto stain Nom (Cvx/Vag) [ID] ELECTRONICALLY SIGNED. ZOE STERN M.D. [facility] Protein Electrophoresis, Serum ALBUMIN IS DECREASED. MAY BE OBSERVED WITH HEPATIC DISEASE, PROTEINURIA, MALNUTRITION, ACUTE PHASE RESPONSE, AND HEMODILUTION. [facility] Total Prot. Sum 5.9 g/dL Low 6.3 - 8.2 g/dL [facility] Total Prot. Sum,% 100 % 98 - 102 % [facility] Immunofixation serum profile on 09-03-2021 Pathologist Cyto stain Nom (Cvx/Vag) [ID] ELECTRONICALLY SIGNED. ZOE STERN M.D. [facility] Serum IFX Interp IMMUNOFIXATION IS NEGATIVE FOR MONOCLONAL IMMUNOGLOBULIN. [facility] Lipaseon 09-03-2021 Lipase [Catalytic activity/Vol] 23 U/L 13 - 60 U/L [facility] No Panel Informationon 09-03 [facility] POCT Glucoseon 09-03-2021 Glucose [Mass/Vol] 79 mg/dL 74 - 100 mg/dL [facility] MARIO SCREEN WITH REFLEXon Anti ds DNA 1.2 <10.0 IU/mL [facility] [place] Antibodies Screen 0.1 U/mL <0.7 [facility] Nuclear Ab IF (S) [Titer] Negative NEGATIVE [facility] ANTI-NEUTROPHIL ANTIBODYon 0 09-02-2021 Neutrophil Ab, Flow Negative Negative [facility] Anti-Neutrophilic Cytoplasmi c Antibodyon 09-02-2021 ANCA Myeloperoxidase <0.3 0.0 - 3 .5 AU/mL [facility] ANCA Proteinase 3 0.9 AU/mL 0.0 - 2.0 AU/mL [facility] Arterial Blood Gas, POCon Dwight Test Positive [facility] FIO2 30.0 [facility] HCO3 (Bld) [Moles/Vol] 21.7 mmol/L 21.0 - 28.0 mmol/L [facility] Interpretation and review of laboratory results Abnormal [facility] Mode PRVC [facility] Negative Base Excess, Art 6 High [facility] O2 Device/Flow/% Adult Ventilator LOIDA [facility] Oxygen saturation in Blood 93 % Low 94.0 - 98.0 % [facility] POC pCO2 48.6 High [facility] POC pCO2 Temp 51 mm Hg [facility] POC pH 7.258 Low [facility] POC pH Temp 7.25 [facility] POC PO2 76.2 Low [facility] POC pO2 Temp 81 mm Hg [facility] Pt Temp 37.9 [facility] Sample Site Right Radial Artery [facility] Basic Metabolic Panel w/ Ref oscar to MGon 09-02-2021 Anion gap [Moles/Vol] 9 mmol/L 9 - 17 mmol/L [facility] Calcium [Mass/Vol] 10.0 mg/dL 8.6 - 10. 4 mg/dL [facility] Chloride [Moles/Vol] 110 mmol/L High 98 - 10 7 mmol/L [facility] CO2 [Moles/Vol] 20 mmol/L 20 - 31 mmol/L [facility] Creatinine [Mass/Vol] 1.86 mg/dL High 0.70 - 1.20 mg/dL [facility] GFR 50 mL/min Low >60 [facility] GFR Non- 41 mL/min Low >60 [facility] GFR/1.73 sq M.predicted MDRD (S/P/Bld) [Vol rate/Area] [facility] Glucose [Mass/Vol] 84 mg/dL 70 - 99 mg/dL [facility] Potassium [Moles/Vol] 4.7 mmol/L 3.7 - 5.3 mmol/L [facility] Sodium [Moles/Vol] 139 mmol/L 135 - 144 mmol/L [facility] Urea nitrogen (BldV) [Mass/Vol] 31 mg/dL High 6 - 20 mg/dL [facility] C3 Complementon 09-02-2021 Complement C3 183 mg/dL High 90 - 180 mg/dL [facility] Interpretation and review of laboratory results Abnormal [facility] C4 Complementon 09-02-2021 Complement C4 29 mg/dL 10 - 40 mg/dL [facility] CBC with Auto Differentialon 09-02-2021 Absolute Eos # 0.34 [facility] Absolute Immature Granulocyte 0.05 [facility] Absolute Lymph # 2.08 [facility] Absolute [place] # 1.34 High [facility] Basophils (Bld) [#/Vol] 0.04 10*3/uL [facility] Basophils/100 WBC (Bld) 0 % 0 - 2 % B ON [facility] Eosinophils/100 WBC (Bld) 3 % 1 - 4 % [facility] Hematocrit (Bld) [Volume fraction] 38.7 % Low 40.7 - 50.3 % [facility] Hemoglobin (Bld) [Mass/Vol] 11.5 g/dL Low 13.0 - 17.0 g/dL [facility] Immature granulocytes/100 WBC (Bld) 1 % High 0 [facility] Interpretation and review of laboratory results Abnormal [facility] Lymphocytes/100 WBC (Bld) 19 % Low 24 - 43 % [facility] MCH (RBC) [Entitic mass] 28.7 pg 25.2 - 33.5 pg [facility] MCHC (RBC) [Mass/Vol] 29.7 g/dL 28.4 - 34.8 g/dL [facility] MCV (RBC) [Entitic vol] 96.5 fL 82.6 - 102.9 fL [facility] Monocytes/100 WBC (Bld) 12 % 3 - 12 % B ON [facility] NRBC Automated 0.0 0.0 per 100 WBC [facility] Platelet distribution width (Bld) [Ratio] 13.5 % 11.8 - 14.4 % [facility] Platelet mean volume (Bld) [Entitic vol] 10.7 fL 8.1 - 13.5 fL [facility] Platelets (Bld) [#/Vol] 228 10*3/uL [facility] RBC (Bld) [#/Vol] 4.01 10*6/uL Low 4.21 - 5.7 7 m/uL [facility] Seg Neutrophils 65 % 36 - 65 % [facility] Segs Absolute 7.14 [facility] WBC (Bld) [#/Vol] 11.0 10*3/uL [facility] Creatinine, Random Urineon 0 09-02-2021 Creatinine, Ur 129.7 mg/dL 39.0 - 259.0 mg/dL [facility] Culture, Respiratoryon 09-02 Bacteria identified Cx Nom (Unsp spec) METHICILLIN RESISTANT STAPHYLOCOCCUS AUREUS HEAVY GROWTH Abnormal [facility] Bacteria identified Cx Nom (Unsp spec) NORMAL RESPIRATORY JAMES LIGHT GROWTH [facility] Direct Exam >10, <25 NEUTROPHILS/LPF [facility] [facility] Direct Exam < 10 EPITHELIAL CELLS/LPF [facility] Direct Exam Positive Abnormal [facility] Direct Exam MIXED BACTERIAL MORPHOTYPES ALSO PRESENT ON GRAM STAIN. Abnormal [facility] Interpretation and review of laboratory results Abnormal [facility] Specimen Description .ENDOTRACHEAL B ON [facility] Eosinophils, Urineon 022 Eosinophil, Ur NONE SEEN NONE SEEN [facility] Hepatitis Panel, Acuteon HAV IgM IA Qn (S) Non-Reactive NONREACTIVE [facility] Hep B Core Ab, IgM Non-Reactive NONREACTIVE [facility] Hepatitis B Surface Ag Non-Reactive NONREACTIVE [facility] Hepatitis C Ab Non-Reactive NONREACTIVE [facility] Davison/Lambda Quantitative Fr ee Light Chains, Serumon 09-02-2021 Free Davison/Lambda Ratio 0.77 B [facility] Interpretation and review of laboratory results Abnormal [facility] Davison Free Light Chains QNT 5.26 mg/dL High 0.37 - 1.94 mg/dL [facility] Lambda Free Light Chains QNT 6.82 mg/dL High 0.57 - 2.63 mg/dL [facility] No Panel Informationon 09-02 [facility] Radiology Study observation (narrative) [facility] Work Phone: [facility] Interpretation and review of laboratory results Abnormal [facility] P[facility] Glucose Fingerstickon Glucose [Mass/Vol] 87 mg/dL 75 - 110 mg/dL [facility] Glucose [Mass/Vol] 89 mg/dL 75 - 110 mg/dL [facility] POCT Glucoseon 09-02-2021 Glucose [Mass/Vol] 80 mg/dL 74 - 100 mg/dL [facility] PTH, Intacton 09-02-2021 Interpretation and review of laboratory results Abnormal [facility] Pth Intact 167.2 pg/mL High 15.0 - 65.0 pg/mL [facility] Phosphoruson 09-02-2021 Phosphate [Mass/Vol] 3.2 mg/dL 2.5 - 4 .5 mg/dL [facility] Protein, urine, randomon Protein (U) [Mass/Vol] 97 mg/dL [facility] Rheumatoid Factoron 09-03-19 Rheumatoid Factor <10 <14 IU/mL [facility] Triglycerideon 09-02-2021 Triglyceride [Mass/Vol] 202 mg/dL High <150 B ON [facility] Vancomycin Level, Randomon 0 09-02-2021 Vancomycin Rm 18.3 ug/mL [facility] Vitamin D 25 Hydroxyon 09-02 Interpretation and review of laboratory results Abnormal [facility] Vit D, 25-Hydroxy 9.5 ng/mL Low >29.9 [facility] XR ABDOMEN FOR NG/OG/NE TUBE PLACEMENTon 09-02-2021 [facility] RIS CONSOLIDATED MHPN RIS CONSOLIDATED [facility] Work Phone: XR ABDOMEN FOR NG/OG/NE TUBE PLACEMENTOrdered By: Farhan Gaines on 09-02-2021 [facility] Work Phone: XR CHEST PORTABLEon 09-03-19 [facility] RIS CONSOLIDATED [facility] RIS CONSOLIDATED [facility] Work Phone: [facility] Work Phone: ALDOSTERONEon 09-01-2021 Aldosterone 6.3 ng/dL [facility] Arterial Blood Gas, POCon Dwight Test NOT APPLICABLE [facility] FIO2 40.0 [facility] HCO3 (Bld) [Moles/Vol] 19.9 mmol/L Low 21.0 - 28.0 mmol/L [facility] Interpretation and review of laboratory results Abnormal [facility] Mode PRVC [facility] Negative Base Excess, Art 5 High [facility] O2 Device/Flow/% Adult Ventilator LOIDA N [facility] Oxygen saturation in Blood 97 % 94.0 - 98.0 % [facility] POC pCO2 34.2 Low [facility] POC pH 7.373 [facility] POC PO2 89.0 [facility] Sample Site Arterial Line [facility] Basic Metabolic Panel w/ Ref oscar to MGon 09-01-2021 Anion gap [Moles/Vol] 10 mmol/L 9 - 17 mmol/L [facility] Calcium [Mass/Vol] 9.3 mg/dL 8.6 - 10. 4 mg/dL [facility] Chloride [Moles/Vol] 111 mmol/L High 98 - 10 7 mmol/L [facility] CO2 [Moles/Vol] 19 mmol/L Low 20 - 31 mmol/L [facility] Creatinine [Mass/Vol] 1.71 mg/dL High 0.70 - 1.20 mg/dL [facility] GFR 55 mL/min Low >60 [facility] GFR Non- 45 mL/min Low >60 [facility] GFR/1.73 sq M.predicted MDRD (S/P/Bld) [Vol rate/Area] [facility] Glucose [Mass/Vol] 102 mg/dL High 70 - 99 mg/dL [facility] Potassium [Moles/Vol] 4.2 mmol/L 3.7 - 5.3 mmol/L [facility] Sodium [Moles/Vol] 140 mmol/L 135 - 144 mmol/L [facility] Urea nitrogen (BldV) [Mass/Vol] 22 mg/dL High 6 - 20 mg/dL [facility] CBC with Auto Differentialon 09-01-2021 Absolute Eos # 0.22 [facility] Absolute Immature Granulocyte <0.03 [facility] Absolute Lymph # 1.65 [facility] Absolute [place] # 0.85 [facility] Basophils (Bld) [#/Vol] 0.03 10*3/uL [facility] Basophils/100 WBC (Bld) 0 % 0 - 2 % B ON [facility] Eosinophils/100 WBC (Bld) 2 % 1 - 4 % [facility] Hematocrit (Bld) [Volume fraction] 33.8 % Low 40.7 - 50.3 % [facility] Hemoglobin (Bld) [Mass/Vol] 10.9 g/dL Low 13.0 - 17.0 g/dL [facility] Immature granulocytes/100 WBC (Bld) 0 % 0 [facility] Interpretation and review of laboratory results Abnormal [facility] Lymphocytes/100 WBC (Bld) 18 % Low 24 - 43 % [facility] MCH (RBC) [Entitic mass] 28.6 pg 25.2 - 33.5 pg [facility] MCHC (RBC) [Mass/Vol] 32.2 g/dL 28.4 - 34.8 g/dL [facility] MCV (RBC) [Entitic vol] 88.7 fL 82.6 - 102.9 fL [facility] Monocytes/100 WBC (Bld) 9 % 3 - 12 % B ON [facility] NRBC Automated 0.0 0.0 per 100 WBC [facility] Platelet distribution width (Bld) [Ratio] 13.5 % 11.8 - 14.4 % [facility] Platelet mean volume (Bld) [Entitic vol] 10.8 fL 8.1 - 13.5 fL [facility] Platelets (Bld) [#/Vol] 212 10*3/uL [facility] RBC (Bld) [#/Vol] 3.81 10*6/uL Low 4.21 - 5.7 7 m/uL [facility] Seg Neutrophils 71 % High 36 - 65 % [facility] Segs Absolute 6.63 [facility] WBC (Bld) [#/Vol] 9.4 10*3/uL [facility] [employer] EKG 12 LeadOrdered By: Kathy Shah on 09-01-2021 Atrial Rate 113 BPM [employer] Work Phone: P-R Interval 136 ms [employer] Work Phone: Q-T Interval 344 ms [employer] Work Phone: QRS Duration 94 ms [employer] Work Phone: QTc Calculation (Bazett) 471 ms [employer] Work Phone: R [place] 89 degrees [employer] Work Phone: T [place] -24 degrees [employer] Work Phone: Ventricular Rate 113 BPM [facility] [employer] Work Phone: [employer] Work Phone: EKG 12 Leadon 09-01-2021 MHPN STV MUSE [employer] Work Phone: METANEPHRINES PLASMA FREEon 09-01-2021 Interpretation and review of laboratory results Abnormal [employer] Metaneph/Plasma Interp See Note LOIDA N [employer] Metanephrine 0.18 nmol/L 0.00 - 0.49 nmol/L [employer] Normetanephrine 0.92 nmol/L High 0.00 - 0.89 nmol/L [email or web address] MRI ABDOMEN WO CONTRASTon [facility] RIS CONSOLIDATED [facility] RIS CONSOLIDATED [employer] Work Phone: Radiology Study observation (narrative) [employer] [employer] Work Phone: MRI ABDOMEN WO CONTRASTOrder ed By: Ariel Ortiz on 09-01-2021 [employer] Work Phone: Mycoplasma pneumoniae antibo dy, IgMon 09-01-2021 Mycoplasma pneumo IgM 0.33 <0.91 [facility] No Panel Informationon 09-01 [facility] Interpretation and review of laboratory results Abnormal [facility] POCT Glucoseon 09-01-2021 Glucose [Mass/Vol] 91 mg/dL 74 - 100 mg/dL [facility] RENINon 09-01-2021 Renin Activity 6 ng/mL/hr [facility] Renin Activity 6.3 ng/mL/hr [facility] Triglycerideon 09-01-2021 Triglyceride [Mass/Vol] 178 mg/dL High <150 B ON [facility] Vancomycin Level, Randomon 0 09-01-2021 Vancomycin Rm 17.8 ug/mL [facility] Arterial Blood Gas, POCon Dwight Test NOT APPLICABLE [facility] FIO2 30.0 [facility] HCO3 (Bld) [Moles/Vol] 22.1 mmol/L 21.0 - 28.0 mmol/L [facility] Interpretation and review of laboratory results Abnormal [facility] Mode PRVC [facility] Negative Base Excess, Art 2 [facility] O2 Device/Flow/% Adult Ventilator LOIDA [facility] Oxygen saturation in Blood 92 % Low 94.0 - 98.0 % [facility] POC pCO2 36.3 [facility] POC pH 7.392 [facility] POC PO2 65.3 Low [facility] Sample Site Arterial Line [facility] Basic Metabolic Panel w/ Ref oscar to MGon 08-31-2021 Anion gap [Moles/Vol] 10 mmol/L 9 - 17 mmol/L [facility] Calcium [Mass/Vol] 9.0 mg/dL 8.6 - 10. 4 mg/dL [facility] Chloride [Moles/Vol] 110 mmol/L High 98 - 10 7 mmol/L [facility] CO2 [Moles/Vol] 20 mmol/L 20 - 31 mmol/L [facility] Creatinine [Mass/Vol] 1.77 mg/dL High 0.70 - 1.20 mg/dL [facility] GFR 53 mL/min Low >60 [facility] GFR Non- 44 mL/min Low >60 [facility] GFR/1.73 sq M.predicted MDRD (S/P/Bld) [Vol rate/Area] [facility] Glucose [Mass/Vol] 91 mg/dL 70 - 99 mg/dL [facility] Interpretation and review of laboratory results Abnormal [facility] Potassium [Moles/Vol] 3.9 mmol/L 3.7 - 5.3 mmol/L [facility] Sodium [Moles/Vol] 140 mmol/L 135 - 144 mmol/L [facility] Urea nitrogen (BldV) [Mass/Vol] 21 mg/dL High 6 - 20 mg/dL [facility] CBC with Auto Differentialon 08-31-2021 Absolute Eos # 0.14 [facility] Absolute Immature Granulocyte 0.04 [facility] Absolute Lymph # 1.91 [facility] Absolute [place] # 1.10 [facility] Basophils (Bld) [#/Vol] 0.04 10*3/uL [facility] Basophils/100 WBC (Bld) 0 % 0 - 2 % B [facility] Eosinophils/100 WBC (Bld) 1 % 1 - 4 % [facility] Hematocrit (Bld) [Volume fraction] 33.8 % Low 40.7 - 50.3 % [facility] Hemoglobin (Bld) [Mass/Vol] 11.0 g/dL Low 13.0 - 17.0 g/dL [facility] Immature granulocytes/100 WBC (Bld) 0 % 0 [facility] Interpretation and review of laboratory results Abnormal [facility] Lymphocytes/100 WBC (Bld) 16 % Low 24 - 43 % [facility] MCH (RBC) [Entitic mass] 28.7 pg 25.2 - 33.5 pg [facility] MCHC (RBC) [Mass/Vol] 32.5 g/dL 28.4 - 34.8 g/dL [facility] MCV (RBC) [Entitic vol] 88.3 fL 82.6 - 102.9 fL [facility] Monocytes/100 WBC (Bld) 9 % 3 - 12 % B ON [facility] NRBC Automated 0.0 0.0 per 100 WBC [facility] Platelet distribution width (Bld) [Ratio] 13.5 % 11.8 - 14.4 % [facility] Platelet mean volume (Bld) [Entitic vol] 10.6 fL 8.1 - 13.5 fL [facility] Platelets (Bld) [#/Vol] 195 10*3/uL [facility] RBC (Bld) [#/Vol] 3.83 10*6/uL Low 4.21 - 5.7 7 m/uL [facility] Seg Neutrophils 73 % High 36 - 65 % [facility] Segs Absolute 8.64 High [facility] WBC (Bld) [#/Vol] 11.9 10*3/uL High [facility] Culture, Blood 1 2 Bacteria identified Cx Nom (Unsp spec) Positive Abnormal [facility] Bacteria identified Cx Nom (Unsp spec) DIRECT GRAM STAIN FROM BOTTLE: GRAM POSITIVE COCCI IN CHAINS [facility] Bacteria identified Cx Nom (Unsp spec) Detected: Streptococcus species (not S. agalactiae (Group B), S. pneumoniae, or S. pyogenes (Group A)) Culture Results to Follow Methodology- Polymerase Chain Reaction (PCR) [facility] Bacteria identified Cx Nom (Unsp spec) STREPTOCOCCI, BETA HEMOLYTIC GROUP C Abnormal [facility] Bacteria identified Cx Nom (Unsp spec) (NOTE) Direct Gram Stain from bottle and Polymerase Chain Reaction (PCR) results called to and read back by: BAUTISTA Greenfield at 0425 on 08/31/21 [facility] Interpretation and review of laboratory results Abnormal [facility] Special Requests 20ML R WRIST [facility] Specimen Description .BLOOD [facility] EKG 12 Leadon 08-31-2021 Atrial Rate 102 BPM [facility] Work Phone: P [place] 15 degrees [employer] Work Phone: P-R Interval 172 ms [employer] Work Phone: Q-T Interval 356 ms [employer] Work Phone: QRS Duration 90 ms [employer] Work Phone: QTc Calculation (Bazett) 463 ms [employer] Work Phone: R [place] 97 degrees [employer] Work Phone: T [place] 104 degrees [employer] Work Phone: Ventricular Rate 102 BPM [email or web address] Work Phone: [facility] STV MUSE [employer] Work Phone: [employer] Work Phone: No Panel Informationon 08-31 [employer] POC Glucose Fingerstickon Glucose [Mass/Vol] 76 mg/dL 75 - 110 mg/dL [email or web address] POCT Glucoseon 08-31-2021 Glucose [Mass/Vol] 81 mg/dL 74 - 100 mg/dL [employer] XR CHEST PORTABLEon 09-01-19 22 [facility]PN RIS CONSOLIDATED [facility]PN RIS CONSOLIDATED [employer] Work Phone: Radiology Study observation (narrative) [email or web address] Work Phone: XR CHEST PORTABLEOrdered By: Usha Ojeda on 08-31-2021 [employer] Work Phone: Hepatic Function Panelon Albumin [Mass/Vol] 3 g/dL Low 3.5 - 5.2 g/dL [employer] Albumin/Globulin [Mass ratio] 1.0 {ratio} [employer] ALP (Bld) [Catalytic activity/Vol] 62 U/L 40 - 129 U/L [facility] ALT [Catalytic activity/Vol] 13 U/L 5 - 41 U/L [facility] AST [Catalytic activity/Vol] 20 U/L <40 [facility] Bilirubin [Mass/Vol] 0.95 mg/dL 0.3 - 1 .2 mg/dL [facility] Bilirubin, Indirect 0.79 mg/dL 0.00 - 1 .00 mg/dL [facility] Bilirubin.indirect [Mass/Vol] 0.16 mg/dL <0.31 [facility] Free PSA/Total PSA [Mass fraction] 5.9 g/dL Low 6.4 - 8.3 g/dL [facility] Interpretation and review of laboratory results Abnormal [facility] MRSA DNA Probe, Nasalon 08-05 Interpretation and review of laboratory results Abnormal [facility] MRSA, DNA, Nasal POSITIVE: MRSA DNA detected by nucleic acid amplification. Abnormal NEGATIVE [facility] Specimen Description .NASAL SWAB [facility] Respiratory Panel, Molecular , with COVID-19 (Restricted: peds pts or suitable admitted adults)on 08-30-2021 Specimen Description .NASOPHARYNGEAL SWAB [facility] US RETROPERITONEAL LIMITEDon 08-30-2021 [facility] RIS CONSOLIDATED [facility]PN RIS CONSOLIDATED [facility] Work Phone: US RETROPERITONEAL LIMITEDOr dered By: Desire Mayberry on 08-30-2021 [facility] Work Phone: VL RENAL ARTERIAL DUPLEX COM PLETEon 08-30-2021 [facility] STV CPACS [facility] Work Phone: VL RENAL ARTERIAL DUPLEX COM PLETEOrdered By: Unknown Result on 08-30-2021 [facility] Troponin I High Sensitivityo n 08-29-2021 Troponin I High Sensitivity 62 pg/mL Off scale high 0-20 [facility] Comment on above: Result Comment: Resu lts called at 2304 on 08/28/21 PERFORMED BY: [facility] [address] PATHOLOGIST MANAGER [employer] MOHINDER MARKS M.D. Performed By: #### H S TROP #### [facility] [address] Activated partial thrombopla stin time (aPTT) in platelet poor plasma by coagulation aOrdered By: Basilio Sam on 08-28-2021 aPTT Coag (PPP) [Time] 33.0 s 25.1-36.5 [facility] Albumin [Mass/volume] in Ser um or PlasmaOrdered By: Basilio Sam on 08-28-2021 Albumin [Mass/Vol] 3.2 g/dL 3.2-5.5 [facility] B-Type Natriuretic Peptideon 08-28-2021 Natriuretic peptide B (Bld) [Mass/Vol] 300.0 pg/mL High 5-100 [facility] Comment on above: Result Comment: PERF ORMED BY: [place] [address] PATHOLOGIST MANAGER [employer] MOHINDER MARKS M.D. Performed By: #### C BC, PT, PTT, CMP, LIPASE, BNP, HS TROP #### [facility] [address] Basophils Auto (Bld) [#/Vol] Ordered By: Basilio Sam on 08-28-2021 Basophils (Bld) [#/Vol] 0.1 10*3/uL 0.0-0.2 [facility] Basophils/100 WBC Auto (Bld) Ordered By: Basilio Sam on 08-28-2021 Basophils/100 WBC (Bld) 0.6 % F [facility] Blood hemoglobin measurement (mass/volume)Ordered By: Basilio Sam on 08-28-2021 Hemoglobin (Bld) [Mass/Vol] 13.8 g/dL 13.0-17.0 [facility] Blood leukocytes automated c ount (number/volume)Ordered By: Basilio Sam on 08-28-2021 WBC (Bld) [#/Vol] 8.9 10*3/uL 4.5-11.0 [facility] COVID-19 Antigenon 06-25-202 2 COVID-19 Antigen Healthcare Worker?: N Reference Range: Negative Negative results, from patients with symptom onset beyond five days, should be treated as presumptive and confirmation with a molecular assay, if necessary, for patient management, may be performed. Negative results do not rule out COVID-19 and should not be used as the sole basis for treatment or patient management decisions, including infection control decisions. Negative results should be considered in the context of a patient's recent exposures, history and the presence of clinical signs and symptoms consistent with COVID-19. The Ann SARS Antigen JAYCEE does not differentiate between SARS-CoV and SARS-CoV-2. This test was developed and its performance characteristic determined by [employer] and validated at [facility]. This test has not been FDA cleared or approved. This test has been authorized by FDA under an Emergency Use Authorization (EUA). This test has been validated in accordance with the FDA's Guidance Document (Policy for Diagnostics Testing in Laboratories Certified to Perform High Complexity Testing under CLIA prior to Emergency Use Authorization for Coronavirus Disease-2019 during the Public Health Emergency) issued on June 06, 2019. This test is only authorized for the duration of time the declaration that circumstances exist justifying the authorization of the emergency use of in vitro diagnostic tests for detection of SARS-CoV-2 virus and/or diagnosis of COVID-19 infection under section 564(b)(1) of the Act, 21 U.S.C. 360bbb-3(b)(1), unless the authorization is terminated or revoked sooner. SARS-CoV+SARS-CoV-2 (COVID-19) Ag [Presence] in Respiratory specimen by Rapid immunoassay Negative for SARS Antigen by JAYCEE PERFORMED BY: [place] [address] PATHOLOGIST MANAGER [employer] MOHINDER MARKS M.D. Normal [facility] Comment on above: Performed By: #### C OVID-19 ANN, KOBEIANEG, COVID 19 [facility] #### [address] COVID-[facility] SARS-CoV-2 (COVID-19) RNA VIK+probe Ql (Unsp spec) Negative Normal Negative [facility] Comment on above: Order Comment: Healt hcare Worker?: N Result Comment: Testing for SARS-CoV-2 by RT-PCR This test was developed and its performance characteristics determined by [employer], [employer] and validated at the [facility]. This test has not been FDA cleared or approved. This test has been authorized by FDA under an Emergency Use Authorization (EUA). This test has been validated in accordance with the FDA's Guidance Document (Policy for Diagnostics Testing in Laboratories Certified to Perform High Complexity Testing under CLIA prior to Emergency Use Authorization for Coronavirus Disease-2019 during the Public Health Emergency) issued on June 06, 2019. This test is only authorized for the duration of time the declaration that circumstances exist justifying the authorization of the emergency use of in vitro diagnostic tests for detection of SARS-CoV-2 virus and/or diagnosis of COVID-19 infection under section 564(b)(1) of the Act, 21 U.S.C. 360bbb-3(b)(1), unless the authorization is terminated or revoked sooner. PERFORMED BY: [place] [address] PATHOLOGIST MANAGER [employer] MOHINDER MARKS M.D. Performed By: #### C OVID-19 ANN, SOFIANEG, COVID 19 [facility] #### [address] COVID-19 SOFIAOrdered By: Durga Sam on 08-28-2021 SARS-CoV+SARS-CoV-2 (COVID-19) Ag IA.rapid Ql (Resp) Negative Negative [facility] Comment on above: This is a duplicate Ann SARS Antigen (JAYCEE) result to be used for statistical tracking purpose only. Complete Blood Count Auto Di ffon 08-28-2021 Basophils (Bld) [#/Vol] 0.1 10*3/uL Normal 0.0-0.2 [facility] Comment on above: Result Comment: PERF ORMED BY: [place] [address] PATHOLOGIST MANAGER [employer] MOHINDER MARKS M.D. Performed By: #### C BC, PT, PTT, CMP, LIPASE, BNP, HS TROP #### [address] Basophils/100 WBC (Bld) 0.6 % Normal . F [facility] Comment on above: Performed By: #### C BC, PT, PTT, CMP, LIPASE, BNP, HS TROP #### [address] Eosinophils (Bld) [#/Vol] 0.1 10*3/uL Normal 0.0-0.45 [facility] Comment on above: Performed By: #### C BC, PT, PTT, CMP, LIPASE, BNP, HS TROP #### [address] Eosinophils/100 WBC (Bld) 1.1 % Normal . [facility] Comment on above: Performed By: #### C BC, PT, PTT, CMP, LIPASE, BNP, HS TROP #### [address] Erythrocyte distribution width (RBC) [Ratio] 13.5 % Normal 12.0-14.8 [facility] Comment on above: Performed By: #### C BC, PT, PTT, CMP, LIPASE, BNP, HS TROP #### [address] Hematocrit (Bld) [Volume fraction] 40.3 % Normal 38.8-50.0 [facility] Comment on above: Performed By: #### C BC, PT, PTT, CMP, LIPASE, BNP, HS TROP #### [address] Hemoglobin (Bld) [Mass/Vol] 13.8 g/dL Normal 13.0-17.0 [facility] Comment on above: Performed By: #### C BC, PT, PTT, CMP, LIPASE, BNP, HS TROP #### [address] Lymphocytes (Bld) [#/Vol] 2.8 10*3/uL Normal 1.00-4.8 [facility] Comment on above: Performed By: #### C BC, PT, PTT, CMP, LIPASE, BNP, HS TROP #### [address] Lymphocytes/100 WBC (Bld) 31.4 % Normal . [facility] Comment on above: Performed By: #### C BC, PT, PTT, CMP, LIPASE, BNP, HS TROP #### [address] MCH (RBC) [Entitic mass] 28.9 pg Normal 27.5-35.2 [facility] Comment on above: Performed By: #### C BC, PT, PTT, CMP, LIPASE, BNP, HS TROP #### [address] MCV (RBC) [Entitic vol] 84.9 fL Normal 83.5-101 F [facility] Comment on above: Performed By: #### C BC, PT, PTT, CMP, LIPASE, BNP, HS TROP #### [address] Mean Corpuscular HGB Conc 34.1 g/dL Normal 32.5-35.6 [facility] Comment on above: Performed By: #### C BC, PT, PTT, CMP, LIPASE, BNP, HS TROP #### [address] Monocytes (Bld) [#/Vol] 0.6 10*3/uL Normal 0.0-0.8 [facility] Comment on above: Performed By: #### C BC, PT, PTT, CMP, LIPASE, BNP, HS TROP #### [address] Monocytes/100 WBC (Bld) 6.5 % Normal . F [facility] Comment on above: Performed By: #### C BC, PT, PTT, CMP, LIPASE, BNP, HS TROP #### [address] Neutrophils (Bld) [#/Vol] 5.4 10*3/uL Normal 1.8-7.7 [facility] Comment on above: Performed By: #### C BC, PT, PTT, CMP, LIPASE, BNP, HS TROP #### [facility] [address] Neutrophils/100 WBC (Bld) 60.4 % Normal . [facility] Comment on above: Performed By: #### C BC, PT, PTT, CMP, LIPASE, BNP, HS TROP #### [facility] [address] Nucleated RBC/100 WBC (Bld) [Ratio] 0.1 % Normal 0-0.5 [facility] Comment on above: Performed By: #### C BC, PT, PTT, CMP, LIPASE, BNP, HS TROP #### [address] Platelet mean volume (Bld) [Entitic vol] 7.9 fL Normal 6.6-10.1 [facility] Comment on above: Performed By: #### C BC, PT, PTT, CMP, LIPASE, BNP, HS TROP #### [facility] [address] Platelets (Bld) [#/Vol] 277 10*3/uL Normal 150-450 [facility] Comment on above: Performed By: #### C BC, PT, PTT, CMP, LIPASE, BNP, HS TROP #### [address] RBC (Bld) [#/Vol] 4.75 10*6/uL Normal 3.90-5.60 [facility] Comment on above: Performed By: #### C BC, PT, PTT, CMP, LIPASE, BNP, HS TROP #### [address] WBC (Bld) [#/Vol] 8.9 10*3/uL Normal 4.5-11.0 [facility] Comment on above: Performed By: #### C BC, PT, PTT, CMP, LIPASE, BNP, HS TROP #### [address] Comprehensive Metabolic Pane jorge 08-28-2021 Albumin [Mass/Vol] 3.2 g/dL Normal 3.2-5.5 [facility] Comment on above: Performed By: #### C BC, PT, PTT, CMP, LIPASE, BNP, HS TROP #### [facility] [address] Albumin/Globulin [Mass ratio] 1.0 {ratio} Normal [facility] Comment on above: Performed By: #### C BC, PT, PTT, CMP, LIPASE, BNP, HS TROP #### [facility] [address] ALP [Catalytic activity/Vol] 71 U/L Normal 32-92 [facility] Comment on above: Performed By: #### C BC, PT, PTT, CMP, LIPASE, BNP, HS TROP #### [facility] [address] ALT [Catalytic activity/Vol] 22 U/L Normal 10-60 [facility] Comment on above: Performed By: #### C BC, PT, PTT, CMP, LIPASE, BNP, HS TROP #### [facility] [address] [place] [address] [place] AST [Catalytic activity/Vol] 20 U/L Normal 10-42 [facility] Comment on above: Performed By: #### C BC, PT, PTT, CMP, LIPASE, BNP, HS TROP #### [facility] [address] [place] [address] [place] Bilirubin [Mass/Vol] 0.6 mg/dL Normal 0.3-1.2 [facility] Comment on above: Performed By: #### C BC, PT, PTT, CMP, LIPASE, BNP, HS TROP #### [facility] [address] [place] [address] [place] Calcium [Mass/Vol] 10.3 mg/dL High 8.2-10.2 [facility] Comment on above: Performed By: #### C BC, PT, PTT, CMP, LIPASE, BNP, HS TROP #### [facility] [address] [place] [address] [place] Chloride [Moles/Vol] 111 mmol/L Normal 95-114 [facility] Comment on above: Performed By: #### C BC, PT, PTT, CMP, LIPASE, BNP, HS TROP #### [facility] [address] CO2 [Moles/Vol] 20.2 mmol/L Low 22.0-30.0 [facility] Comment on above: Performed By: #### C BC, PT, PTT, CMP, LIPASE, BNP, HS TROP #### [facility] [address] Creatinine [Mass/Vol] 1.80 mg/dL High 0.64-1.27 [facility] Comment on above: Performed By: #### C BC, PT, PTT, CMP, LIPASE, BNP, HS TROP #### [facility] [address] Creatinine Clr Calc Pharmacy 62.94 [facility] Comment on above: Performed By: #### C BC, PT, PTT, CMP, LIPASE, BNP, HS TROP #### [address] Estimated GFR ( Kelley 52 [facility] Comment on above: Result Comment: GFR estimated reference range: According to KDOQI guidelines, <60 ml/min/1.73m2 is sufficient to diagnose a patient with chronic kidney disease. Performed By: #### C BC, PT, PTT, CMP, LIPASE, BNP, HS TROP #### [facility] [address] Estimated GFR (Non- Am 43 [facility] Comment on above: Performed By: #### C BC, PT, PTT, CMP, LIPASE, BNP, HS TROP #### [facility] [address] Globulin (S) [Mass/Vol] 3.1 g/dL Normal [facility] Comment on above: Performed By: #### C BC, PT, PTT, CMP, LIPASE, BNP, HS TROP #### [facility] [address] Glucose [Mass/Vol] 85 mg/dL Normal 70-100 [facility] Comment on above: Result Comment: [place] Glucose Reference Range is dependent on time and content of last meal. Glucose of more than 200 mg/dL in a nonstressed, ambulatory subject supports the diagnosis of Diabetes Mellitus. ADA recommended reference range Performed By: #### C BC, PT, PTT, CMP, LIPASE, BNP, HS TROP #### [facility] [address] Potassium [Moles/Vol] 4.2 mmol/L Normal 3.5-5.1 [facility] Comment on above: Performed By: #### C BC, PT, PTT, CMP, LIPASE, BNP, HS TROP #### [facility] [address] Protein [Mass/Vol] 6.3 g/dL Normal 6.1-7.9 [facility] Comment on above: Performed By: #### C BC, PT, PTT, CMP, LIPASE, BNP, HS TROP #### [facility] [address] Sodium [Moles/Vol] 139 mmol/L Normal 136-146 [facility] Comment on above: Performed By: #### C BC, PT, PTT, CMP, LIPASE, BNP, HS TROP #### [facility] [address] Urea nitrogen [Mass/Vol] 26 mg/dL High 9-23 [facility] Comment on above: Performed By: #### C BC, PT, PTT, CMP, LIPASE, BNP, HS TROP #### [facility] [address] Creatinine and Glomerular fi ltration rate.predicted panel (S/P/Bld)Ordered By: Basilio Sam on 08-28-2021 Creatinine [Mass/Vol] 1.80 mg/dL 0.64-1.27 [facility] ECG 12 lead ECGon 08-28-2021 ECG 12 lead ECG [facility] [address] [place] [address] [place] [address] Electrocardiograph Report Signed Patient: Elias Walker MR#: [id number] : 1985 Acct:[id number] Age/Sex: 36 / M ADM Date: 08/28/21 Loc: ER Room: Type: [facility] ER Attending Dr: Ordering Provider: Basilio Sam PA-C Date of Service: 08/28/21 ECG/ECG 12 lead ECG: Shortness of Breath/Dyspnea Copies to: Test Reason : Blood Pressure : 203/131 mmHG Vent. Rate : 116 BPM Atrial Rate : 116 BPM P-R Int : 160 ms QRS Dur : 088 ms QT Int : 336 ms P-R-T Axes : 045 100 -38 degrees QTc Int : 467 ms Sinus tachycardia Rightward axis Cannot rule out Anterior infarct , age undetermined Abnormal ECG No previous ECGs available Confirmed by MADISON RODRIGUEZ MD ([id number]) on 08/29/2021 1:26:54 AM Referred By: Electronically Signed By:MADISON RODRIGUEZ MD Transcribed By: MUS Signed By Madison Rodriguez MD 08/05 08/25 0126 Normal [facility] Eosinophils Auto (Bld) [#/Vo l]Ordered By: Basilio Sam on 08-28-2021 Eosinophils (Bld) [#/Vol] 0.1 10*3/uL 0.0-0.45 [facility] Eosinophils/100 WBC Auto (Bl d)Ordered By: Basilio Sam on 08-28-2021 Eosinophils/100 WBC (Bld) 1.1 % [facility] Erythrocyte distribution wid th Auto (RBC) [Ratio]Ordered By: Basilio Sam on 08-28-2021 Erythrocyte distribution width (RBC) [Ratio] 13.5 % 12.0-14.8 [facility] Estimated glomerular filtrat ion rate (GFR) non- AmericanOrdered By: Basilio Sam on 08-28-2021 GFR/1.73 sq M.predicted among non-blacks MDRD (S/P/Bld) [Vol rate/Area] 43 mL/Min [facility] Globulin Calc (S) [Mass/Vol] Ordered By: Basilio Sam on 08-28-2021 Globulin (S) [Mass/Vol] 3.1 g/dL F [facility] Hematocrit Auto (Bld) [Volum e fraction]Ordered By: Basilio Sam on 08-28-2021 Hematocrit (Bld) [Volume fraction] 40.3 % 38.8-50.0 [facility] Laboratory - Chemistry and C hemistry - challengeOrdered By: Basilio Sam on 08-28-2021 Lipase [Catalytic activity/Vol] 39.0 U/L [facility] Natriuretic peptide B (Bld) [Mass/Vol] 300.0 pg/mL 5-100 [facility] - CoagulationOrde red By: Basilio Sam on 08-28-2021 PT Coag (PPP) [Time] 12.0 s 9.0-12.9 [facility] Laboratory - Hematology and Cell countsOrdered By: Basilio Sam on 08-28-2021 Nucleated RBC/100 WBC (Bld) [Ratio] 0.1 % 0-0.5 [facility] - Microbiology an d Antimicrobial susceptibilityOrdered By: Basilio Sam on 08-28-2021 SARS-CoV-2 (COVID-19) RNA VIK+probe Ql (Unsp spec) N/A [facility] Lipaseon 08-28-2021 Lipase [Catalytic activity/Vol] 39.0 U/L Normal [facility] Comment on above: Result Comment: PERF ORMED BY: [place] [address] PATHOLOGIST MANAGER [employer] MOHINDER MARKS M.D. Performed By: #### C BC, PT, PTT, CMP, LIPASE, BNP, HS TROP #### [facility] [address] Lymphocytes Auto (Bld) [#/Vo l]Ordered By: Basilio Sam on 08-28-2021 Lymphocytes (Bld) [#/Vol] 2.8 10*3/uL 1.00-4.8 [facility] Lymphocytes/100 WBC Auto (Bl d)Ordered By: Basilio Sam on 08-28-2021 Lymphocytes/100 WBC (Bld) 31.4 % [facility] MCH Auto (RBC) [Entitic mass ]Ordered By: Basilio Sam on 08-28-2021 MCH (RBC) [Entitic mass] 28.9 pg 27.5-35.2 [facility] MCHC Auto (RBC) [Mass/Vol]Or dered By: Basilio Sam on 08-28-2021 MCHC (RBC) [Mass/Vol] 34.1 g/dL 32.5-35.6 [facility] MCV Auto (RBC) [Entitic vol] Ordered By: Basilio Sam on 08-28-2021 MCV (RBC) [Entitic vol] 84.9 fL 83.5-101 F [facility] Monocytes Auto (Bld) [#/Vol] Ordered By: Basilio Sam on 08-28-2021 Monocytes (Bld) [#/Vol] 0.6 10*3/uL 0.0-0.8 [facility] Monocytes/100 WBC Auto (Bld) Ordered By: Basilio Sam on 08-28-2021 Monocytes/100 WBC (Bld) 6.5 % F [facility] Neutrophils Auto (Bld) [#/Vo l]Ordered By: Basilio Sam on 08-28-2021 Neutrophils (Bld) [#/Vol] 5.4 10*3/uL 1.8-7.7 [facility] Neutrophils/100 WBC Auto (Bl d)Ordered By: Basilio Sam on 08-28-2021 Neutrophils/100 WBC (Bld) 60.4 % [facility] No Panel InformationOrdered By: Basilio Sam on 08-28-2021 SARS Antigen (LFIA) [facility] Estimated GFR () 52 mL/Min [facility] Comment on above: GFR estimated refere nce range: According to KDOQI guidelines, <60 ml/min/1.73m2 is sufficient to diagnose a patient with chronic kidney disease. Pharmacy Creatinine Clearance (Chem 62.94 [facility] Partial Thromboplastin Timeo n 08-28-2021 aPTT Coag (d) [Time] 33.0 s Normal 25.1-36.5 [facility] Comment on above: Result Comment: PERF ORMED BY: [facility] [address] [place] [address] PATHOLOGIST MANAGER [employer] MOHINDER MARKS M.D. Performed By: #### C BC, PT, PTT, CMP, LIPASE, BNP, HS TROP #### [facility] [address] [place] [address] [place] Platelet mean volume Auto (B ld) [Entitic vol]Ordered By: Basilio Sam on 08-28-2021 Platelet mean volume (Bld) [Entitic vol] 7.9 fL 6.6-10.1 [facility] Platelet poor plasma interna tional normalized ratio (INR) by coagulation assay (relatOrdered By: Basilio Sam on 08-28-2021 INR Coag (PPP) [Relative time] 1.1 {INR} [facility] Comment on above: INR Therapeutic Rang e A) Pre- and Peroperative OAT started two weeks before surgery. NOT HIP SURGERY: 1.5 - 2.5 HIP SURGERY: 2 - 3 B) Primary and secondary prevention of venous THROMBOSIS: 2 - 3 C) Active venous thrombosis, pulmonary embolism and prevention of recurrent venous thrombosis: 2 - 3 D) Prevention of arterial thromboembolism including patients with mechanical heart valves: 3 - 4.5 Platelets Auto (Bld) [#/Vol] Ordered By: Basilio Sam on 08-28-2021 Platelets (Bld) [#/Vol] 277 10*3/uL 150-450 [facility] Protein [Mass/volume] in Ser um or PlasmaOrdered By: Basilio Sam on 08-28-2021 Protein [Mass/Vol] 6.3 g/dL 6.1-7.9 [facility] Prothrombin Time INRon 08-28 INR Coag (PPP) [Relative time] 1.1 {INR} Normal [facility] Comment on above: Result Comment: INR Therapeutic Range A) Pre- and Peroperative OAT started two weeks before surgery. NOT HIP SURGERY: 1.5 - 2.5 HIP SURGERY: 2 - 3 B) Primary and secondary prevention of venous THROMBOSIS: 2 - 3 C) Active venous thrombosis, pulmonary embolism and prevention of recurrent venous thrombosis: 2 - 3 D) Prevention of arterial thromboembolism including patients with mechanical heart valves: 3 - 4.5 Performed By: #### C BC, PT, PTT, CMP, LIPASE, BNP, HS TROP #### [facility] [address] [place] [address] [place] PT Coag (PPP) [Time] 12.0 s Normal 9.0-12.9 [facility] Comment on above: Performed By: #### C BC, PT, PTT, CMP, LIPASE, BNP, HS TROP #### [facility] [address] RBC Auto (Bld) [#/Vol]Ordere d By: Basilio Sam on 08-28-2021 RBC (Bld) [#/Vol] 4.75 10*6/uL 3.90-5.60 [facility] Serum or plasma alanine villalpando otransferase measurement without P-5'-P (enzymatic activiOrdered By: Basilio Sam on 08-28-2021 ALT No additional P-5'-P [Catalytic activity/Vol] 22 U/L 10-60 [facility] Serum or plasma albumin/glob ulin mass ratioOrdered By: Basilio Sam on 08-28-2021 Albumin/Globulin [Mass ratio] 1.0 {ratio} [facility] Serum or plasma alkaline michael sphatase measurement (enzymatic activity/volume)Ordered By: Basilio Sam on 08-28-2021 ALP [Catalytic activity/Vol] 71 U/L 32-92 [facility] Serum or plasma aspartate am inotransferase measurement (enzymatic activity/volume)Ordered By: Basilio Sam on 08-28-2021 AST [Catalytic activity/Vol] 20 U/L 10-42 [facility] Serum or plasma calcium vicky urement (mass/volume)Ordered By: Basilio Sam on 08-28-2021 Calcium [Mass/Vol] 10.3 mg/dL 8.2-10.2 [facility] Serum or plasma chloride johann surement (moles/volume)Ordered By: Basilio Sam on 08-28-2021 Chloride [Moles/Vol] 111 mmol/L 95-114 [facility] Serum or plasma glucose vicky urement (mass/volume)Ordered By: Basilio Sam on 08-28-2021 Glucose [Mass/Vol] 85 mg/dL 70-100 [facility] Comment on above: ADA recommended refe rence range Random Glucose Reference Range is dependent on time and content of last meal. Glucose of more than 200 mg/dL in a nonstressed, ambulatory subject supports the diagnosis of Diabetes Mellitus. Serum or plasma potassium me asurement (moles/volume)Ordered By: Basilio Sam on 08-28-2021 Potassium [Moles/Vol] 4.2 mmol/L 3.5-5.1 [facility] Serum or plasma sodium measu rement (moles/volume)Ordered By: Basilio aSm on 08-28-2021 Sodium [Moles/Vol] 139 mmol/L 136-146 [facility] Serum or plasma total biliru bin measurement (mass/volume)Ordered By: Basilio Sam on 08-28-2021 Bilirubin [Mass/Vol] 0.6 mg/dL 0.3-1.2 [facility] Serum or plasma total carbon dioxide measurement (moles/volume)Ordered By: Basilio Sam on 08-28-2021 CO2 [Moles/Vol] 20.2 mmol/L 22.0-30.0 [facility] Serum or plasma urea nitroge n measurement (mass/volume)Ordered By: Basilio Sam on 08-28-2021 Urea nitrogen [Mass/Vol] 26 mg/dL 11-26 [facility] Ann Ag Negativeon 08-29-19 Ann Ag Negative Negative Normal Negative [facility] Comment on above: Result Comment: This is a duplicate Ann SARS Antigen (JAYCEE) result to be used for statistical tracking purpose only. PERFORMED BY: [place] [address] PATHOLOGIST MANAGER [employer] MOHINDER MARKS M.D. Performed By: #### C OVID-19 ANN, SOFIANEG, COVID [address] [place] [address] #### [address] Troponin I High Sensitivityo n 08-28-2021 Troponin I High Sensitivity 61 pg/mL Off scale high 0-20 [facility] Comment on above: Result Comment: Crit ical value result called at 2040 on 08/28/21 PERFORMED BY: [place] [address] PATHOLOGIST MANAGER [employer] MOHINDER MARKS M.D. Performed By: #### C OVID-19 ANN, SOFIANEG, COVID [address] [place] [address] #### [facility] [address] [place] [id number] [facility] Troponin I.cardiac [Mass/vol ume] in Serum or Plasma by High sensitivity methodOrdered By: Basilio Sam on 08-28-2021 Troponin I.cardiac High sensitivity method [Mass/Vol] 62 pg/mL 0-20 [facility] Comment on above: Results called at 2304 on 08/28/21 Vital Signs Date Time Vital Sign Value Performing Clinician Facility 06-10-2024 14:51-0400 Body height 165.1 cm Jose Khanna DIRECTOR SOCIAL SERVICE-RECREATION SUPERVISOR Work Phone: [facility] [employer] [facility] 06-10-2024 14:51-0400 Body mass index (BMI) [Ratio] 46.66 kg/m2 Jose Khanna DIRECTOR SOCIAL SERVICE-RECREATION SUPERVISOR Work Phone: [facility] [employer] [facility] 06-10-2024 14:51-0400 Body temperature 97.59 [degF] Jose Khanna DIRECTOR SOCIAL SERVICE-RECREATION SUPERVISOR Work Phone: [facility] [employer] [facility] 06-10-2024 14:51-0400 Body weight 127.19 kg Jose Khanna DIRECTOR SOCIAL SERVICE-RECREATION SUPERVISOR [facility] 06-10-2024 14:51-0400 Diastolic blood pressure 80 mm[Hg] Jose Khanna DIRECTOR SOCIAL SERVICE-RECREATION SUPERVISOR Work Phone: [facility] [employer] [facility] 06-10-2024 14:51-0400 Heart rate 65 /min Jose Khanna DIRECTOR SOCIAL SERVICE-RECREATION SUPERVISOR Work Phone: [facility] [employer] [facility] 06-10-2024 14:51-0400 Respiratory rate 18 /min Jose Khanna DIRECTOR SOCIAL SERVICE-RECREATION SUPERVISOR [facility] 06-10-2024 14:51-0400 SaO2% (BldA) [Mass fraction] 97 % Jose Khanna DIRECTOR SOCIAL SERVICE-RECREATION SUPERVISOR Work Phone: [facility] [employer] [facility] 06-10-2024 14:51-0400 Systolic blood pressure 130 mm[Hg] Jose Khanna DIRECTOR SOCIAL SERVICE-RECREATION SUPERVISOR Work Phone: [facility] [employer] [facility] 02-29-2024 15:33-0500 Body height 165.1 cm Jose MENDEZ Work Phone: [facility] 02-29-2024 15:33-0500 Body mass index (BMI) [Ratio] 47.29 kg/m2 Jose Khanna APRN-JOSE Work Phone: [facility] 02-29-2024 15:33-0500 Body temperature 97.59 [degF] Jose Khanna APRN-JOSE Work Phone: [facility] [employer] [facility] 02-29-2024 15:33-0500 Body weight 128.91 kg Jose Khanna APRN-JOSE Work Phone: [facility] [employer] [facility] 02-29-2024 15:33-0500 Diastolic blood pressure 62 mm[Hg] Jose Khanna APRN-JOSE Work Phone: [facility] 02-29-2024 15:33-0500 Heart rate 76 /min Jose Khanna APRN-JOSE Work Phone: [facility] 02-29-2024 15:33-0500 Respiratory rate 18 /min Jose Khanna APRN-JOSE Work Phone: [facility] 02-29-2024 15:33-0500 SaO2% (BldA) [Mass fraction] 97 % Jose Khanna APRN-JOSE Work Phone: [facility] [employer] [facility] 02-29-2024 15:33-0500 Systolic blood pressure 118 mm[Hg] Jose Khanna APRN-JOSE Work Phone: [facility] 02-13-2024 15:48-0500 Body height 165.1 cm Roslyn PHAM Work Phone: [facility] [employer] [facility] 02-13-2024 15:48-0500 Body mass index (BMI) [Ratio] 46.59 kg/m2 Roslyn PHAM Work Phone: [facility] [employer] [facility] 02-13-2024 15:48-0500 Body weight 127.01 kg Roslyn PHAM Work Phone: [facility] 01-16-2024 08:48-0500 Body mass index (BMI) [Ratio] 46.69 kg/m2 Joseanaly Khanna APRN-RECREATION SUPERVISOR Work Phone: [facility] 01-16-2024 08:48-0500 Body temperature 97.5 [degF] Jose Khanna APRN-RECREATION SUPERVISOR Work Phone: [facility] 01-16-2024 08:48-0500 Body weight 127.28 kg Jose Khanna APRN-RECREATION SUPERVISOR Work Phone: [facility] 01-16-2024 08:48-0500 Diastolic blood pressure 82 mm[Hg] Joseanaly Khanna APRN-RECREATION SUPERVISOR Work Phone: [facility] 01-16-2024 08:48-0500 Heart rate 81 /min Joseanaly Khanna APRN-RECREATION SUPERVISOR Work Phone: [facility] 01-16-2024 08:48-0500 SaO2% (BldA) [Mass fraction] 97 % Jose Khanna APRN-RECREATION SUPERVISOR Work Phone: [facility] 01-16-2024 08:48-0500 Systolic blood pressure 142 mm[Hg] Jose Khanna APRN-RECREATION SUPERVISOR Work Phone: [facility] 11-23-2023 15:24-0400 Body height 165.1 cm Jose Khanna APRN-RECREATION SUPERVISOR Work Phone: [facility] 11-23-2023 15:24-0400 Body mass index (BMI) [Ratio] 47.03 kg/m2 Jose Khanna APRN-RECREATION SUPERVISOR Work Phone: [facility] [employer] [facility] 11-23-2023 15:24-0400 Body temperature 98.49 [degF] Jose Khanna APRN-JOSE Work Phone: [facility] [employer] [facility] 11-23-2023 15:24-0400 Body weight 128.19 kg Jose Khanna APRN-RECREATION SUPERVISOR Work Phone: [facility] 11-23-2023 15:24-0400 Diastolic blood pressure 72 mm[Hg] Jose Khanna APRN-RECREATION SUPERVISOR Work Phone: [facility] 11-23-2023 15:24-0400 Heart rate 89 /min Jose Khanna APRN-JOSE Work Phone: [facility] 11-23-2023 15:24-0400 Respiratory rate 20 /min Jose Khanna APRN-RECREATION SUPERVISOR Work Phone: [facility] 11-23-2023 15:24-0400 SaO2% (BldA) [Mass fraction] 95 % Jose Khanna APRN-JOSE Work Phone: [facility] 11-23-2023 15:24-0400 Systolic blood pressure 130 mm[Hg] Jose Khanna APRN-RECREATION SUPERVISOR Work Phone: [facility] 10-04-2023 15:20-0400 Body height 165.1 cm Jose Khanna APRN-JOSE Work Phone: [facility] 10-04-2023 15:20-0400 Body mass index (BMI) [Ratio] 48.26 kg/m2 Jose Khanna APRN-RECREATION SUPERVISOR Work Phone: [facility] 10-04-2023 15:20-0400 Body temperature 98.71 [degF] Jose Khanna APRN-RECREATION SUPERVISOR Work Phone: [facility] 10-04-2023 15:20-0400 Body weight 131.54 kg Jose Khanna APRN-RECREATION SUPERVISOR Work Phone: [facility] 10-04-2023 15:20-0400 Diastolic blood pressure 72 mm[Hg] Jose Khanna APRN-RECREATION SUPERVISOR Work Phone: [facility] 10-04-2023 15:20-0400 Heart rate 78 /min Jose Khanna APRN-RECREATION SUPERVISOR Work Phone: [facility] 10-04-2023 15:20-0400 Respiratory rate 18 /min Jose Khanna APRN-RECREATION SUPERVISOR Work Phone: [facility] 10-04-2023 15:20-0400 SaO2% (BldA) [Mass fraction] 96 % Jose Khanna APRN-RECREATION SUPERVISOR Work Phone: [facility] 10-04-2023 15:20-0400 Systolic blood pressure 100 mm[Hg] Jose Khanna APRN-RECREATION SUPERVISOR Work Phone: [facility] 09-20-2023 15:04-0400 Body height 165.1 cm Jose Khanna APRN-RECREATION SUPERVISOR Work Phone: [facility] 09-20-2023 15:04-0400 Body mass index (BMI) [Ratio] 48.28 kg/m2 Jose Khanna APRN-RECREATION SUPERVISOR Work Phone: [facility] 09-20-2023 15:04-0400 Body temperature 98.2 [degF] Jose Khanna APRN-RECREATION SUPERVISOR Work Phone: [facility] 09-20-2023 15:04-0400 Body weight 131.59 kg Jose Khanna APRN-RECREATION SUPERVISOR Work Phone: [facility] 09-20-2023 15:04-0400 Diastolic blood pressure 70 mm[Hg] Jose Khanna APRN-RECREATION SUPERVISOR Work Phone: [facility] 09-20-2023 15:04-0400 Heart rate 80 /min Joseanaly Khanna APRN-RECREATION SUPERVISOR Work Phone: [facility] 09-20-2023 15:04-0400 Respiratory rate 18 /min Jose Khanna APRN-RECREATION SUPERVISOR Work Phone: [facility] 09-20-2023 15:04-0400 SaO2% (BldA) [Mass fraction] 94 % Jose Khanna APRN-RECREATION SUPERVISOR Work Phone: [facility] 09-20-2023 15:04-0400 Systolic blood pressure 90 mm[Hg] Jose Khanna APRN-RECREATION SUPERVISOR Work Phone: [facility] 07-18-2023 10:34-0400 Body height 165.1 cm Jose Khanna APRN-RECREATION SUPERVISOR Work Phone: [facility] 07-18-2023 10:34-0400 Body mass index (BMI) [Ratio] 48.72 kg/m2 Jose Khanna APRN-RECREATION SUPERVISOR Work Phone: [facility] 07-18-2023 10:34-0400 Body temperature 98.1 [degF] Jose Khanna APRN-JOSE Work Phone: [facility] 07-18-2023 10:34-0400 Body weight 132.81 kg Jose Khanna APRN-RECREATION SUPERVISOR Work Phone: [facility] 07-18-2023 10:34-0400 Diastolic blood pressure 80 mm[Hg] Jose Khanna APRN-RECREATION SUPERVISOR Work Phone: [facility] Comment on above: bp very quiet 07-18-2023 10:34-0400 Heart rate 70 /min Jose Khanna APRN-RECREATION SUPERVISOR Work Phone: [facility] 07-18-2023 10:34-0400 Respiratory rate 18 /min Jose Khanna APRN-RECREATION SUPERVISOR Work Phone: [facility] 07-18-2023 10:34-0400 SaO2% (BldA) [Mass fraction] 95 % Jose Khanna APRN-RECREATION SUPERVISOR Work Phone: [facility] [employer] [facility] 07-18-2023 10:34-0400 Systolic blood pressure 120 mm[Hg] Jose Khanna APRN-RECREATION SUPERVISOR Work Phone: [facility] Comment on above: bp very quiet 05-10-2023 13:35-0500 Body height 165.1 cm Jose Khanna APRN-RECREATION SUPERVISOR Work Phone: [facility] 05-10-2023 13:35-0500 Body mass index (BMI) [Ratio] 48.89 kg/m2 Jose Khanna APRN-RECREATION SUPERVISOR Work Phone: [facility] [employer] [facility] 05-10-2023 13:35-0500 Body temperature 98.4 [degF] Jose Khanna APRN-RECREATION SUPERVISOR Work Phone: [facility] [employer] [facility] 05-10-2023 13:35-0500 Body weight 133.27 kg Jose Khanna APRN-RECREATION SUPERVISOR Work Phone: [facility] [employer] [facility] 05-10-2023 13:35-0500 Diastolic blood pressure 78 mm[Hg] Jose Khanna APRN-RECREATION SUPERVISOR Work Phone: [facility] 05-10-2023 13:35-0500 Heart rate 84 /min Jose MENDEZ Work Phone: [facility] [employer] [facility] 05-10-2023 13:35-0500 SaO2% (BldA) [Mass fraction] 94 % Jose Khanna APRN-RECREATION SUPERVISOR Work Phone: [facility] [employer] [facility] 05-10-2023 13:35-0500 Systolic blood pressure 126 mm[Hg] Jose Khanna APRN-RECREATION SUPERVISOR Work Phone: [facility] 05-05-2023 09:11-0500 Body height 165.1 cm Tereza Debi DIRECTOR SOCIAL SERVICE-RECREATION SUPERVISOR Work Phone: [facility] [employer] [facility] 05-05-2023 09:11-0500 Body mass index (BMI) [Ratio] 49.52 kg/m2 Tereza Carrera APRN-RECREATION SUPERVISOR Work Phone: [facility] 05-05-2023 09:11-0500 Body temperature 97.59 [degF] Tereza Carrera APRN-RECREATION SUPERVISOR Work Phone: [facility] [employer] 05-05-2023 09:11-0500 Body weight 134.99 kg Tereza Carrera APRN-RECREATION SUPERVISOR Work Phone: [facility] [employer] 05-05-2023 09:11-0500 Diastolic blood pressure 90 mm[Hg] Tereza Carrera APRN-RECREATION SUPERVISOR Work Phone: [facility] [employer] 05-05-2023 09:11-0500 Heart rate 90 /min Tereza Carrera APRN-RECREATION SUPERVISOR Work Phone: [facility] [employer] 05-05-2023 09:11-0500 SaO2% (BldA) [Mass fraction] 98 % Tereza Carrera APRN-RECREATION SUPERVISOR Work Phone: [facility] [employer] 05-05-2023 09:11-0500 Systolic blood pressure 130 mm[Hg] Tereza Carrera APRN-RECREATION SUPERVISOR Work Phone: [facility] [employer] [facility] 04-19-2023 09:06-0500 Body height 165.1 cm Jose Khanna APRN-RECREATION SUPERVISOR Work Phone: [facility] [employer] 04-19-2023 09:06-0500 Body mass index (BMI) [Ratio] 50.46 kg/m2 Jose Khanna APRN-RECREATION SUPERVISOR Work Phone: [facility] 04-19-2023 09:06-0500 Body temperature 97.3 [degF] Jose Khanna APRN-RECREATION SUPERVISOR Work Phone: [facility] [employer] [facility] 04-19-2023 09:06-0500 Body weight 137.53 kg Jose Khanna APRN-RECREATION SUPERVISOR Work Phone: [facility] 04-19-2023 09:06-0500 Diastolic blood pressure 80 mm[Hg] Jose Khanna APRN-RECREATION SUPERVISOR Work Phone: [facility] 04-19-2023 09:06-0500 Heart rate 76 /min Jose Khanna APRN-RECREATION SUPERVISOR Work Phone: [facility] 04-19-2023 09:06-0500 SaO2% (BldA) [Mass fraction] 97 % Jose Khanna APRN-RECREATION SUPERVISOR Work Phone: [facility] 04-19-2023 09:06-0500 Systolic blood pressure 118 mm[Hg] Jose Khanna APRN-RECREATION SUPERVISOR Work Phone: [facility] 03-28-2023 10:17-0500 Body height 165.1 cm Eliana Merino DIRECTOR SOCIAL SERVICE-DIRECTOR OF RETENTION Work Phone: [facility] 03-28-2023 10:17-0500 Body mass index (BMI) [Ratio] 50.12 kg/m2 Eliana Merino DIRECTOR SOCIAL SERVICE-DIRECTOR OF RETENTION Work Phone: [facility] 03-28-2023 10:17-0500 Body temperature 97.59 [degF] Eliana Merino DIRECTOR SOCIAL SERVICE-DIRECTOR OF RETENTION Work Phone: [facility] 03-28-2023 10:17-0500 Body weight 136.62 kg Eliana Merino APRN-DIRECTOR OF RETENTION Work Phone: [facility] 03-28-2023 10:17-0500 Diastolic blood pressure 80 mm[Hg] Eliana Merino DIRECTOR SOCIAL SERVICE-DIRECTOR OF RETENTION Work Phone: [facility] 03-28-2023 10:17-0500 Heart rate 75 /min Eliana Merino APRN-DIRECTOR OF RETENTION Work Phone: [facility] 03-28-2023 10:17-0500 SaO2% (BldA) [Mass fraction] 98 % Eliana Merino DIRECTOR SOCIAL SERVICE-DIRECTOR OF RETENTION Work Phone: [facility] 03-28-2023 10:17-0500 Systolic blood pressure 128 mm[Hg] Eliana Merino APRN-DIRECTOR OF RETENTION Work Phone: [facility] 03-08-2023 16:50-0500 Body height 165.1 cm Jose Khanna APRN-RECREATION SUPERVISOR Work Phone: [facility] 03-08-2023 16:50-0500 Body mass index (BMI) [Ratio] 48.99 kg/m2 Jose Khanna APRN-RECREATION SUPERVISOR Work Phone: [facility] 03-08-2023 16:50-0500 Body temperature 97.7 [degF] Jose Khanna APRN-RECREATION SUPERVISOR Work Phone: [facility] 03-08-2023 16:50-0500 Body weight 133.54 kg Jose Khanna APRN-RECREATION SUPERVISOR Work Phone: [facility] 03-08-2023 16:50-0500 Diastolic blood pressure 68 mm[Hg] Jose Khanna APRN-RECREATION SUPERVISOR Work Phone: [facility] 03-08-2023 16:50-0500 Heart rate 59 /min Jose Khanna APRN-RECREATION SUPERVISOR Work Phone: [facility] 03-08-2023 16:50-0500 SaO2% (BldA) [Mass fraction] 96 % Jose Khanna APRN-RECREATION SUPERVISOR Work Phone: [facility] 03-08-2023 16:50-0500 Systolic blood pressure 126 mm[Hg] Jose Khanna APRN-RECREATION SUPERVISOR Work Phone: [facility] 06-06-2022 13:37-0400 Body temperature 98.01 [degF] Fly Lugohaleh DO Work Phone: [facility] 06-06-2022 13:37-0400 Diastolic blood pressure 65 mm[Hg] Snehad Mashaleh DO Work Phone: [facility] [employer] [facility] 06-06-2022 13:37-0400 Heart rate 95 /min Fly Zapata DO Work Phone: [facility] [employer] [facility] 06-06-2022 13:37-0400 SaO2% (BldA) [Mass fraction] 96 % Fly Zapata DO Work Phone: [facility] [employer] 06-06-2022 13:37-0400 Systolic blood pressure 122 mm[Hg] Fly Zapata DO Work Phone: [facility] [employer] 06-06-2022 12:00-0400 Body height 162.6 cm Fly Zapata DO Work Phone: [facility] [employer] 06-06-2022 07:56-0400 Respiratory rate 18 /min Fly Zapata DO Work Phone: [facility] [employer] 06-05-2022 06:00-0400 Body mass index (BMI) [Ratio] 48.7 kg/m2 Fly Zapata DO Work Phone: [facility] 06-05-2022 06:00-0400 Body weight 128.7 kg Fly Zapata DO Work Phone: [facility] [employer] 09-28-2021 14:15-0400 Diastolic blood pressure 92 mm[Hg] [facility] [employer] 09-28-2021 14:15-0400 Heart rate 83 /min [facility] 01 [facility] 09-28-2021 14:15-0400 Systolic blood pressure 146 mm[Hg] [facility] 01 [facility] [employer] 09-25-2021 16:15-0400 Body temperature 97.7 [degF] [facility] 01 [facility] [employer] 09-25-2021 16:15-0400 Diastolic blood pressure 90 mm[Hg] [facility] 01 [employer] [facility] [employer] 09-25-2021 16:15-0400 Heart rate 78 /min [facility] 01 [employer] 09-25-2021 16:15-0400 Respiratory rate 18 /min Mth 01 [facility] [employer] 09-25-2021 16:15-0400 SaO2% (BldA) [Mass fraction] 99 % Mth 01 [facility] [employer] 09-25-2021 16:15-0400 Systolic blood pressure 143 mm[Hg] Mth 01 [facility] SECMAR[facility] ELENA [facility] [employer] 09-24-2021 16:18-0400 Body temperature 98.91 [degF] [facility] 01 [facility] [employer] 09-24-2021 16:18-0400 Heart rate 88 /min [facility] 01 [facility] SEC[facility] [employer] 09-24-2021 16:18-0400 Respiratory rate 18 /min Mth 01 [facility] [employer] 09-23-2021 16:00-0400 Body temperature 97.3 [degF] [facility] 01 [facility] [employer] 09-23-2021 16:00-0400 Diastolic blood pressure 86 mm[Hg] Mth 01 [facility] [employer] 09-23-2021 16:00-0400 Heart rate 89 /min [facility] 01 [facility] [employer] 09-23-2021 16:00-0400 Respiratory rate 20 /min [facility] 01 [facility] [employer] 09-23-2021 16:00-0400 Systolic blood pressure 150 mm[Hg] Mth 01 [facility] [employer] 09-22-2021 16:03-0400 Body temperature 98.6 [degF] [facility] 01 [facility] SECMARIA ELENA [facility] [employer] 09-22-2021 16:03-0400 Diastolic blood pressure 86 mm[Hg] [facility] 01 [facility] [employer] 09-22-2021 16:03-0400 Heart rate 90 /min [facility] 01 [facility] [employer] 09-22-2021 16:03-0400 Respiratory rate 20 /min [facility] 01 [facility] [employer] 09-22-2021 16:03-0400 Systolic blood pressure 155 mm[Hg] Mth 01 [facility] [employer] 09-21-2021 16:00-0400 Body temperature 98.1 [degF] [facility] 01 [facility] [employer] 09-21-2021 16:00-0400 Diastolic blood pressure 82 mm[Hg] Mth 01 [facility] [employer] 09-21-2021 16:00-0400 Heart rate 88 /min [facility] 01 B[facility] SEC[facility] [employer] 09-21-2021 16:00-0400 Systolic blood pressure 142 mm[Hg] Mth 01 [facility] SECMARIA ELENA [facility] [employer] 09-20-2021 16:30-0400 Body temperature 98.49 [degF] Mth 01 [facility] [employer] 09-20-2021 16:30-0400 Diastolic blood pressure 75 mm[Hg] Mth 01 B[facility] SECMARIA ELENA [facility]AN [employer] 09-20-2021 16:30-0400 Heart rate 84 /min Mth 01 [facility] [employer] 09-20-2021 16:30-0400 Systolic blood pressure 134 mm[Hg] Mth 01 [facility]MARIA E[facility] [employer] 09-19-2021 17:11-0400 Body temperature 99.3 [degF] Mth 01 [facility] [employer] 09-19-2021 17:11-0400 Diastolic blood pressure 60 mm[Hg] Mth 01 [facility] [employer] 09-19-2021 17:11-0400 Heart rate 90 /min [facility] 01 [facility] [employer] Mathur [employer] 09-19-2021 17:11-0400 Systolic blood pressure 128 mm[Hg] Mth 01 [facility] [employer] 09-18-2021 16:00-0400 Body temperature 97.81 [degF] Mth 01 [facility] [employer] 09-18-2021 16:00-0400 Diastolic blood pressure 70 mm[Hg] Mth 01 [facility] [employer] 09-18-2021 16:00-0400 Heart rate 92 /min Mth 01 [facility] [employer]ur [employer] 09-18-2021 16:00-0400 Respiratory rate 18 /min [facility] 01 [facility] [employer] 09-18-2021 16:00-0400 SaO2% (BldA) [Mass fraction] 97 % [facility] 01 [facility] [employer] [facility] [employer] 09-18-2021 16:00-0400 Systolic blood pressure 138 mm[Hg] Mth 01 [facility] [employer] [facility] [employer] 09-17-2021 16:09-0400 Body temperature 97.7 [degF] [facility] 03 BON SECBox [facility] [employer] 09-17-2021 16:09-0400 Diastolic blood pressure 74 mm[Hg] Mth 03 BON [employer] 09-17-2021 16:09-0400 Heart rate 88 /min [facility] 03 [facility] [employer] 09-17-2021 16:09-0400 Respiratory rate 18 /min Mth 03 [facility] 09-17-2021 16:09-0400 Systolic blood pressure 140 mm[Hg] Mth 03 [facility] SECMARIA ELENA [facility] [employer] 09-15-2021 16:09-0400 Body temperature 98.71 [degF] Mth 03 [facility] 09-15-2021 16:09-0400 Diastolic blood pressure 77 mm[Hg] Mth 03 [facility] [employer] 09-15-2021 16:09-0400 Heart rate 94 /min Mth 03 [facility] [employer] 09-15-2021 16:09-0400 Respiratory rate 18 /min Mth 03 [facility] 09-15-2021 16:09-0400 Systolic blood pressure 134 mm[Hg] Mth 03 [facility] [employer] 09-14-2021 15:25-0400 Body temperature 97.59 [degF] Mth 03 [facility] 09-14-2021 15:25-0400 Diastolic blood pressure 73 mm[Hg] Mth 03 [facility] [employer] 09-14-2021 15:25-0400 Heart rate 84 /min Mth 03 [facility] [employer] 09-14-2021 15:25-0400 Respiratory rate 18 /min Mth 03 [facility] SECMAR[facility] ELENA [facility] 09-14-2021 15:25-0400 Systolic blood pressure 128 mm[Hg] Mth 03 [facility] [employer] 09-13-2021 16:28-0400 Body temperature 97.7 [degF] Jared Hernandez MD Work Phone: [facility] [employer] 09-13-2021 16:28-0400 Diastolic blood pressure 80 mm[Hg] Jared Hernandez MD Work Phone: [facility] [employer] 09-13-2021 16:28-0400 Heart rate 80 /min Jared Hernandez MD Work Phone: [facility] [employer] 09-13-2021 16:28-0400 Respiratory rate 18 /min Jared Hernandez MD Work Phone: [facility] [employer] 09-13-2021 16:28-0400 SaO2% (BldA) [Mass fraction] 98 % Jared Hernandez MD Work Phone: [employer] 09-13-2021 16:28-0400 Systolic blood pressure 143 mm[Hg] Jared Hernandez MD Work Phone: [employer] 09-12-2021 11:41-0400 Body temperature 98.71 [degF] Myke Soliz DO Work Phone: [employer] 09-12-2021 11:41-0400 Diastolic blood pressure 78 mm[Hg] Myke Soliz DO Work Phone: [employer] 09-12-2021 11:41-0400 Heart rate 75 /min Myke Soliz DO Work Phone: [employer] 09-12-2021 11:41-0400 Respiratory rate 18 /min Myke Soliz DO Work Phone: [employer] 09-12-2021 11:41-0400 SaO2% (BldA) [Mass fraction] 94 % Myke Soliz DO Work Phone: [employer] 09-12-2021 11:41-0400 Systolic blood pressure 127 mm[Hg] Myke Soliz DO Work Phone: [employer] 09-11-2021 04:13-0400 Body mass index (BMI) [Ratio] 39.92 kg/m2 Myke Soliz DO Work Phone: [employer] 09-11-2021 04:13-0400 Body weight 105.5 kg Myke Soliz DO Work Phone: [employer] 09-07-2021 14:37-0400 Body height 162.6 cm Myke Soliz DO Work Phone: [employer] 08-28-2021 23:12-0400 Diastolic blood pressure 110 mm[Hg] PHYSICIAN [facility] 08-28-2021 23:12-0400 Heart rate 109 /min PHYSICIAN [facility] 08-28-2021 23:12-0400 Respiratory rate 15 /min PHYSICIAN NO [facility] 08-28-2021 23:12-0400 SaO2% (BldA) [Mass fraction] 95 % PHYSICIAN NO [facility] 08-28-2021 23:12-0400 Systolic blood pressure 179 mm[Hg] PHYSICIAN [facility] 08-28-2021 18:44-0400 Body height 162.56 cm PHYSICIAN NO [facility] 08-28-2021 18:44-0400 Body mass index (BMI) [Ratio] 41.3 kg/m2 PHYSICIAN NO [facility] 08-28-2021 18:44-0400 Body weight 109.2 kg PHYSICIAN [facility] 08-28-2021 18:32-0400 Body temperature 98.1 [degF] PHYSICIAN NO [facility] Encounters Encounter Date Encounter Type Care Provider Facility Start: 11-14-2024 End: 11[facility]14[facility]2024 [facility] Start: 10-02-2024 End: 10-02-2024 Telephone encounter Reilly Nava DO Work Phone: [phone] Comment on above: Appointment Request Start: 10-01-2024 End: 10-01-2024 [facility] Comment on above: Mixed hyperlipidemia Start: 08-09-2024 End: 08-12-2024 Telephone encounter Princess [facility] Start: 08-08-2024 End: 08-09-2024 [facility] Start: 07-09-2024 End: 07-10-2024 [facility] Start: 06-16-2024 End: 06-17-2024 Refill Jose Khanna DIRECTOR SOCIAL SERVICE-RECREATION SUPERVISOR [facility] Comment on above: Seasonal allergic rh initis due to pollen Start: 06-10-2024 End: 06-10-2024 Office outpatient visit 25 minutes Jose Gavin PerezKhanna DIRECTOR SOCIAL SERVICE-RECREATION SUPERVISOR Work Phone: [facility] Comment on above: Uncontrolled type 2 diabetes mellitus with hyperglycemia (CMS- HCC) (Primary Dx); Type 2 diabetes mellitus with microalbuminuria, without long-term current use of insulin (CMS-HCC); Anxiety and depression; Type 2 diabetes mellitus with stage 3 chronic kidney disease and hypertension (CMS-HCC) Start: 06-10-2024 End: 06-10-2024 ambulatory [facility] Start: 05-30-2024 End: 05-30-2024 Refill Jose Gavin Khanna DIRECTOR SOCIAL SERVICE-RECREATION SUPERVISOR [facility] Start: 05-29-2024 End: 05-29-2024 Refill Jose J Khanna DIRECTOR SOCIAL SERVICE-RECREATION SUPERVISOR [facility] Comment on above: Moderate episode of recurrent major depressive disorder (CMS-HCC) Start: 04-21-2024 End: 04-21-2024 ambulatory Alesia Kendal [facility] Start: 04-02-2024 End: 04-03-2024 Refill Jose Perezillo DIRECTOR SOCIAL SERVICE-RECREATION SUPERVISOR Work Phone: [facility] Comment on above: Uncontrolled type 2 diabetes mellitus with hyperglycemia (CMS- HCC); Type 2 diabetes mellitus with stage 3 chronic kidney disease and hypertension (CMS-HCC); Type 2 diabetes mellitus with microalbuminuria, without long-term current use of insulin (CMS-HCC) Start: 03-20-2024 End: 03-20-2024 ambulatory [facility] Start: 03-20-2024 End: 03-20-2024 ambulatory [facility] Start: 02-29-2024 End: 02-29-2024 Office outpatient visit 25 minutes Jose Gavin Khanna DIRECTOR SOCIAL SERVICE-RECREATION SUPERVISOR Work Phone: [facility] Comment on above: Uncontrolled type 2 diabetes mellitus with hyperglycemia (CMS- HCC) (Primary Dx); Type 2 diabetes mellitus with microalbuminuria, without long-term current use of insulin ([facility]); Type 2 diabetes mellitus with stage 3 chronic kidney disease and hypertension ([facility]) Start: 02-29-2024 End: 02-29-2024 ambulatory [facility] Start: 02-13-2024 End: 02-13-2024 ambulatory ROSLYN JENNYFER [facility] Start: 02-13-2024 End: 02-13-2024 Nutrition therapy Roslyn Blancas Work Phone: [facility] Comment on above: Type 2 diabetes toyin itus with other diabetic kidney complication ([facility]); Essential hypertension, malignant; Stage 3 chronic kidney disease, unspecified whether stage 3a or 3b CKD ([facility]); Morbid obesity ([facility]) Start: 01-16-2024 End: 02-07-2024 [facility]ENNETH-RECREATION SUPERVISOR Work Phone: [facility] Start: 01-16-2024 End: 01-16-2024 ambulatory [facility] Start: 01-16-2024 End: 01-16-2024 Office outpatient visit 15 minutes Jose Khanna DIRECTOR SOCIAL SERVICE-RECREATION SUPERVISOR Work Phone: [facility] Comment on above: Type 2 diabetes toyin itus with microalbuminuria, without long- term current use of insulin ([facility]) Start: 12-31-2023 End: 12-31-2023 ambulatory Ryan Siddiqi RN [facility] Start: 12-31-2023 End: 12-31-2023 Emergency department patient visit [facility] Start: 12-29-2023 End: 01-01-2024 Refill Marzena Gary [facility] Physicians Internal Medicine - Family Medicine Comment on above: Mixed hyperlipidemia Start: 11-29-2023 End: 11-30-2023 Telephone encounter Zenaida Mayer [facility] Physician s Internal Medicine - Family Medicine Start: 11-27-2023 End: 11-27-2023 Orders Only Jose Khanna DIRECTOR SOCIAL SERVICE-RECREATION SUPERVISOR Work Phone: [facility] Start: 11-27-2023 End: 11-27-2023 Refill Jose Khanna DIRECTOR SOCIAL SERVICE-RECREATION SUPERVISOR Work Phone: [facility] Internal Medicine - Family Medicine Comment on above: Type 2 diabetes toyin itus with microalbuminuria, without long- term current use of insulin ([facility]) Start: 11-24-2023 End: 11-27-2023 Refill Jose Khanna DIRECTOR SOCIAL SERVICE-RECREATION SUPERVISOR Work Phone: [facility] Medicine Comment on above: Type 2 diabetes toyin itus with microalbuminuria, without long- term current use of insulin ([facility]) Start: 11-23-2023 End: 11-23-2023 ambulatory [facility] Start: 11-23-2023 End: 11-23-2023 Office outpatient visit 25 minutes Jose Khanna DIRECTOR SOCIAL SERVICE-RECREATION SUPERVISOR Work Phone: [facility] - [facility] Medicine Comment on above: Type 2 diabetes toyin itus with microalbuminuria, without long- term current use of insulin ([facility]) (Primary Dx); Moderate episode of recurrent major depressive disorder ([facility]); Mixed hyperlipidemia; Seasonal allergic rhinitis due to pollen; Type 2 diabetes mellitus with stage 3 chronic kidney disease and hypertension ([facility]); Anxiety and depression; Comprehensive diabetic foot examination, type 2 DM, encounter for ([facility]) Start: 11-23-2023 End: 11-23-2023 ambulatory [facility] Start: 11-13-2023 End: 11-13-2023 Refill [facility]zena [facility] Internal Medicine - Family Medicine Comment on above: Moderate episode of recurrent major depressive disorder ([facility]); Type 2 diabetes mellitus with stage 3 chronic kidney disease and hypertension ([facility]) Start: 10-20-2023 End: 10-23-2023 Refill iVvien Rooney [facility] Internal Medicine - Family Medicine Comment on above: Type 2 diabetes toyin itus with microalbuminuria, without long- term current use of insulin ([facility]) Start: 10-04-2023 End: 10-04-2023 Clinical Support Jose Khanna DIRECTOR SOCIAL SERVICE-RECREATION SUPERVISOR Work Phone: [facility] Physicians Internal Medicine - Family Medicine Start: 10-01-2023 End: 10-02-2023 Refill Tereza Murcia Rauch DIRECTOR SOCIAL SERVICE-RECREATION SUPERVISOR Work Phone: [facility] - Family Medicine Start: 09-20-2023 End: 09-20-2023 Office outpatient visit 15 minutes Jose Khanna DIRECTOR SOCIAL SERVICE-RECREATION SUPERVISOR Work Phone: [facility] Physicians Internal Medicine - Family Medicine Comment on above: Folliculitis (Primar y Dx) Start: 09-20-2023 End: 09-20-2023 ambulatory [facility] Start: 09-05-2023 End: 09-05-2023 ambulatory [facility] Start: 07-25-2023 End: 07-26-2023 Telephone encounter Jose Khanna DIRECTOR SOCIAL SERVICE-RECREATION SUPERVISOR Work Phone: [facility] Physicians Internal Medicine - Family Medicine Start: 07-19-2023 End: 07-19-2023 Orders Only Jose Khanna DIRECTOR SOCIAL SERVICE-RECREATION SUPERVISOR Work Phone: [facility] Physicians Internal Medicine - Family Medicine Comment on above: Type 2 diabetes toyin itus with microalbuminuria, without long- term current use of insulin ([facility]) (Primary Dx) Start: 07-18-2023 End: 07-18-2023 Office outpatient visit 25 minutes Jose Khanna DIRECTOR SOCIAL SERVICE-RECREATION SUPERVISOR Work Phone: [facility] - Family Medicine Comment on above: Type 2 diabetes toyin itus with microalbuminuria, without long- term current use of insulin ([facility]) (Primary Dx); Primary hypertension; Current moderate episode of major depressive disorder without prior episode ([facility]); Mixed hyperlipidemia Start: 07-18-2023 End: 07-18-2023 ambulatory [facility] Start: 06-26-2023 End: 06-26-2023 Clinical Support Jose Khanna DIRECTOR SOCIAL SERVICE-RECREATION SUPERVISOR Work Phone: [facility] Physicians Internal Medicine - Family Medicine Comment on above: Type 2 diabetes toyin itus with microalbuminuria, without long- term current use of insulin ([facility]) (Primary Dx) Start: 06-20-2023 End: 06-20-2023 ambulatory PRATEEK García [facility] Start: 06-14-2023 End: 06-15-2023 Refill Jose Khanna DIRECTOR SOCIAL SERVICE-RECREATION SUPERVISOR Work Phone: [facility] - Family Medicine Start: 06-14-2023 End: 06-14-2023 Office outpatient visit 10 minutes Jose Khanna DIRECTOR SOCIAL SERVICE-RECREATION SUPERVISOR Work Phone: [facility] Internal Medicine - Family Medicine Comment on above: Type 2 diabetes toyin itus with microalbuminuria, without long- term current use of insulin ([facility]) (Primary Dx) Start: 06-14-2023 End: 06-14-2023 ambulatory [facility] Start: 05-30-2023 Telephone encounter Marzena Nelson [facility] - [facility] Medicine Start: 05-10-2023 End: 05-10-2023 Office outpatient visit 25 minutes Jose Khanna DIRECTOR SOCIAL SERVICE-RECREATION SUPERVISOR Work Phone: [facility] Internal Medicine - Family Medicine Comment on above: Uncontrolled type 2 diabetes mellitus with hyperglycemia (CMS- HCC) (Primary Dx); Moderate episode of recurrent major depressive disorder ([facility]) Start: 05-09-2023 Orders Only Tereza Carrera DIRECTOR SOCIAL SERVICE-RECREATION SUPERVISOR Work Phone: [facility] Internal Medicine - Family Medicine Start: 05-05-2023 End: 05-05-2023 Office outpatient visit 25 minutes Tereza Carrera DIRECTOR SOCIAL SERVICE-RECREATION SUPERVISOR Work Phone: [facility] Internal Medicine - Family Medicine Comment on above: Type 2 diabetes toyin itus with microalbuminuria, without long- term current use of insulin (CMS-HCC) (Primary Dx); Fasting hyperglycemia Start: 04-19-2023 End: 04-19-2023 Office outpatient visit 25 minutes Jose Khanna DIRECTOR SOCIAL SERVICE-RECREATION SUPERVISOR Work Phone: [facility] Internal Medicine - Family Medicine Comment on above: Type 2 diabetes toyin itus with microalbuminuria, without long- term current use of insulin ([facility]) (Primary Dx); Type 2 diabetes mellitus with stage 3 chronic kidney disease and hypertension ([facility]); Anxiety and depression; Snoring; Mixed hyperlipidemia Start: 04-03-2023 End: 04-03-2023 ambulatory KATE MATT Not Available Start: 03-29-2023 Orders Only Ofelia Kuns DIRECTOR SOCIAL SERVICE-DIRECTOR OF RETENTION Work Phone: [facility] Internal Medicine - Family Medicine Comment on above: Lesion of tongue (Pr imary Dx) Start: 03-28-2023 End: 03-28-2023 Office outpatient visit 15 minutes Ofelia Kuns DIRECTOR SOCIAL SERVICE-DIRECTOR OF RETENTION Work Phone: [facility] Internal Medicine - Family Medicine Comment on above: Lesion of tongue (Pr imary Dx) Start: 03-10-2023 Refill Jose braden DIRECTOR SOCIAL SERVICE-RECREATION SUPERVISOR Work Phone: [facility] Comment on above: Seasonal allergic rh initis due to pollen Start: 03-08-2023 End: 03-08-2023 Office outpatient visit 25 minutes Jose Khanna DIRECTOR SOCIAL SERVICE-RECREATION SUPERVISOR Work Phone: [facility] Internal Medicine - Family Medicine Comment on above: Type 2 diabetes toyin itus with microalbuminuria, without long- term current use of insulin ([facility]) (Primary Dx); Mixed anxiety and depressive disorder; Mixed hyperlipidemia; Stage 3b chronic kidney disease ([facility]) Start: 12-21-2022 End: 12-21-2022 [facility] Start: 11-08-2022 End: 11-08-2022 [facility] Start: 10-21-2022 End: 10-24-2022 ambulatory JOSE J [facility] Start: 10-06-2022 End: 10-06-2022 ambulatory JOSE J [facility] Start: 10-04-2022 End: 10-04-2022 ambulatory ANNA SERRANO [facility] Start: 08-15-2022 End: 08-15-2022 Subsequent hospital visit by physician [facility] Rm 3 [facility] Comment on above: Canceled (Patient) Start: 08-09-2022 End: 08-09-2022 Subsequent hospital visit by physician Jose Christina CNP Work Phone: [facility] Laboratory Comment on above: Acute kidney injury superimposed on CKD (HCC); Avitaminosis D; Anemia of chronic renal failure, unspecified CKD stage; Hypercalcemia; Hyperparathyroidism (HCC); Stage 3 chronic kidney disease, unspecified whether stage 3a or 3b CKD (HCC); Acute kidney injury (HCC); Dilated cardiomyopathy (HCC); Primary hypertension Start: 07-25-2022 End: 07-26-2022 ambulatory MAGUI DAVIS [facility] Start: 07-18-2022 End: 07-18-2022 Subsequent hospital visit by physician [facility] Rm [facility] Comment on above: Arrived Start: 07-13-2022 End: 07-13-2022 Subsequent hospital visit by physician [facility] Rm [facility] Comment on above: Arrived Start: 07-11-2022 End: 07-11-2022 Subsequent hospital visit by physician [facility] Rm [facility] Comment on above: Arrived Start: 07-07-2022 End: 07-07-2022 Subsequent hospital visit by physician [facility] Rm 3 [facility] Laboratory Comment on above: Acute kidney injury (HCC); Hypercalcemia; Dilated cardiomyopathy (HCC); Primary hypertension Arrived Start: 07-04-2022 End: 07-04-2022 Subsequent hospital visit by physician [facility] Rm [facility] Comment on above: Arrived Start: 05-23-2022 End: 06-06-2022 Evaluation and management of inpatient Fly Zapata DO Work Phone: [facility] Step[facility] Start: 05-23-2022 End: 05-23-2022 ambulatory FRANKLIN JAQUELINE Facility:[facility] Start: 10-06-2021 End: 10-06-2021 Subsequent hospital visit by physician [facility] Comment on above: Hypercalcemia Start: 09-28-2021 End: 09-28-2021 Subsequent hospital visit by physician [facility] Op Treatment [address] Laboratory Comment on above: Acute kidney injury (HCC); Hypercalcemia; Dilated cardiomyopathy (HCC); Primary hypertension 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) (Primary Dx) Start: 09-25-2021 End: 09-25-2021 Subsequent hospital visit by physician [facility] [address] [facility] ([facility] Comment on above: 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) (Primary Dx) Start: 09-24-2021 End: 09-24-2021 Subsequent hospital visit by physician [facility] [address] [facility] ([facility]) Comment on above: 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) (Primary Dx) Start: 09-23-2021 End: 09-23-2021 Subsequent hospital visit by physician [facility] [address] [facility] ([facility]) Comment on above: 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) (Primary Dx) Start: 09-22-2021 End: 09-22-2021 Subsequent hospital visit by physician [facility] [address] [facility] ([facility]) Comment on above: 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) (Primary Dx) Start: 09-21-2021 End: 09-21-2021 Subsequent hospital visit by physician [facility] [address] [facility] ([facility]) Comment on above: 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) (Primary Dx) Start: 09-20-2021 End: 09-20-2021 Subsequent hospital visit by physician [facility] [address] [facility] ([facility]) Comment on above: 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) (Primary Dx) Start: 09-19-2021 End: 09-19-2021 Subsequent hospital visit by physician [facility] Op Treatment [address] Specialty [facility] ([facility]) Comment on above: 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) (Primary Dx) Start: 09-18-2021 End: 09-18-2021 Subsequent hospital visit by physician [facility] Treatment [address] [facility]ty [facility] ([facility]) Comment on above: 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) (Primary Dx) Start: 09-17-2021 End: 09-17-2021 Subsequent hospital visit by physician [facility] Op Treatment [address] [facility] ([facility]) Comment on above: 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) (Primary Dx) Acute kidney injury (HCC) Start: 09-15-2021 End: 09-15-2021 Subsequent hospital visit by physician [facility] Treatment [address] Specialty [facility] ([facility]) Comment on above: 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) (Primary Dx) Start: 09-14-2021 End: 09-14-2021 Subsequent hospital visit by physician [facility] [address] [facility] ([facility]) Comment on above: 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) (Primary Dx) Start: 09-13-2021 End: 09-13-2021 Subsequent hospital visit by physician Jared Hernandez MD Work Phone: [facility] Comment on above: 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) (Primary Dx) Start: 08-29-2021 End: 09-12-2021 Evaluation and management of inpatient Myke Soliz DO Work Phone: [facility] Stepdown Start: 08-28-2021 End: 08-29-2021 Emergency department patient visit Basilio Sam Facility:[facility] Start: 08-28-2021 End: 08-29-2021 Emergency department patient visit PHYSICIAN GENESIS [facility] Procedures Date Procedure Procedure Detail Performing Clinician Start: 06-10-2024 Hemoglobin glycosylated a1c Jose luo DIRECTOR SOCIAL SERVICE-RECREATION SUPERVISOR Work Phone: Start: 02-29-2024 Hemoglobin glycosylated a1c Jose J Ca stillo DIRECTOR SOCIAL SERVICE-RECREATION SUPERVISOR Work Phone: Start: 02-29-2024 Adult depression screening assessment Jose Khanna DIRECTOR SOCIAL SERVICE-RECREATION SUPERVISOR Work Phone: Start: 02-13-2024 AMB REFERRAL TO DIABETIC EDUCATION Jacob Cochran DO Work Phone: Start: 01-16-2024 Follow-up visit Follow-up JOSE KHANNA Start: 01-16-2024 Adult depression screening assessment Jose Khanna DIRECTOR SOCIAL SERVICE-RECREATION SUPERVISOR Work Phone: Start: 11-23-2023 Hemoglobin glycosylated a1c Jose shieldso DIRECTOR SOCIAL SERVICE-RECREATION SUPERVISOR Work Phone: Start: 11-23-2023 Adult depression screening assessment Jose Khanna DIRECTOR SOCIAL SERVICE-RECREATION SUPERVISOR Work Phone: Start: 09-20-2023 Adult depression screening assessment Jose Khanna DIRECTOR SOCIAL SERVICE-RECREATION SUPERVISOR Work Phone: Start: 07-18-2023 Hemoglobin glycosylated a1c Jose shieldso DIRECTOR SOCIAL SERVICE-RECREATION SUPERVISOR Work Phone: Start: 07-18-2023 Adult depression screening assessment Jose Khanna DIRECTOR SOCIAL SERVICE-RECREATION SUPERVISOR Work Phone: Start: 05-10-2023 Adult depression screening assessment Tereza Carrera DIRECTOR SOCIAL SERVICE-RECREATION SUPERVISOR Work Phone: Start: 05-05-2023 Adult depression screening assessment Tereza Carrera DIRECTOR SOCIAL SERVICE-RECREATION SUPERVISOR Work Phone: Start: 04-19-2023 Adult depression screening assessment Jose Khanna DIRECTOR SOCIAL SERVICE-RECREATION SUPERVISOR Work Phone: Start: 03-28-2023 Adult depression screening assessment Eliana Nelsonthor DIRECTOR SOCIAL SERVICE-DIRECTOR OF RETENTION Work Phone: Start: 03-08-2023 Hemoglobin glycosylated a1c Jose Eisenberg stillo DIRECTOR SOCIAL SERVICE-RECREATION SUPERVISOR Work Phone: Start: 03-08-2023 Adult depression screening assessment Jose Khanna DIRECTOR SOCIAL SERVICE-RECREATION SUPERVISOR Work Phone: Start: 08-09-2022 End: 08-09-2022 Basic metabolic panel calcium total Anna Serrano MD Work Phone: Start: 08-09-2022 Microalbumin [Mass/volume] in Urine by Test strip Jose Khanna DIRECTOR SOCIAL SERVICE-RECREATION SUPERVISOR Work Phone: Start: 07-07-2022 Basic metabolic panel calcium total Anna Serrano MD Work Phone: Start: 06-23-2022 History of coronary artery bypass grafting S/P CABG (coronary artery bypass graft) Mth 3 Start: 06-06-2022 Glucose blood reagent strip Ariel lizarraga MD Work Phone: Start: 06-06-2022 End: 06-06-2022 Basic metabolic panel calcium total Ariel Purdy MD Work Phone: Start: 06-06-2022 Radiologic exam chest single view Anam SOLIS Work Phone: Start: 06-05-2022 Glucose blood reagent strip Ariel lizarraga MD Work Phone: Start: 06-05-2022 Radiologic exam chest single view Eddie Machado DIRECTOR SOCIAL SERVICE - PROJECT MANAGEMENT INTERN Work Phone: Start: 06-05-2022 Glucose blood reagent strip Ariel lizarraga MD Work Phone: Start: 06-05-2022 Glucose blood reagent strip Ariel lizarraga MD Work Phone: Start: 06-05-2022 Radiologic exam chest single view Anam SOLIS Work Phone: Start: 06-05-2022 Basic metabolic panel calcium total Ariel Purdy MD Work Phone: Start: 06-04-2022 Glucose blood reagent strip Ariel lizarraga MD Work Phone: Start: 06-04-2022 Glucose blood reagent strip Ariel lizarraga MD Work Phone: Start: 06-04-2022 End: 06-04-2022 Calcium ionized Bc Flood MD Work Phone: Start: 06-04-2022 End: 06-04-2022 Basic metabolic panel calcium total Ariel Purdy MD Work Phone: Start: 06-04-2022 Drug screen quantitative vancomycin Talib Saldaña MD Work Phone: Start: 06-04-2022 Radiologic exam chest single view Anam SOLIS Work Phone: Start: 06-03-2022 Glucose blood reagent strip Ariel lizarraga MD Work Phone: Start: 06-03-2022 BASIC METABOLIC PANEL W/ REFLEX TO MG FOR LOW K Talib Saldaña MD Work Phone: Start: 06-03-2022 Drug screen quantitative vancomycin Talib Saldaña MD Work Phone: Start: 06-03-2022 Glucose blood reagent strip Ariel lizarraga MD Work Phone: Start: 06-03-2022 Glucose blood reagent strip Ariel lizarraga MD Work Phone: Start: 06-03-2022 Glucose blood reagent strip Ariel lizarraga MD Work Phone: Start: 06-03-2022 Glucose blood reagent strip Solange nelson MD Work Phone: Start: 06-03-2022 Antibody screen Fly Brittneypraneeth DO Work Phone: Start: 06-03-2022 Glucose blood reagent strip Solange nelson MD Work Phone: Start: 06-03-2022 Radiologic exam chest single view Anam SOLIS Work Phone: Start: 06-03-2022 End: 06-03-2022 Basic metabolic panel calcium total Ariel Purdy MD Work Phone: Start: 06-03-2022 End: 06-03-2022 ARTERIAL BLOOD GAS, POC Solange Mercer MD Work Phone: Start: 06-03-2022 End: 06-03-2022 Gluc bld gluc mntr dev cleared fda spec home use Solange Mercer MD Work Phone: Start: 06-03-2022 LACTIC ACID,POINT OF CARE Solange Mercer MD Work Phone: Start: 06-02-2022 ARTERIAL BLOOD GAS, POC Solange Mercer MD Work Phone: Start: 06-02-2022 End: 06-03-2022 Gluc bld gluc mntr dev cleared fda spec home use Solange Mercer MD Work Phone: Start: 06-02-2022 LACTIC ACID,POINT OF CARE Solange Mercer MD Work Phone: Start: 06-02-2022 Glucose blood reagent strip Solange nelson MD Work Phone: Start: 06-02-2022 End: 06-02-2022 Calcium ionized Ariel Purdy MD Work Phone: Start: 06-02-2022 Radiologic exam chest single view Anam SOLIS Work Phone: Start: 06-02-2022 End: 06-02-2022 Basic metabolic panel calcium total Anam SOLIS Work Phone: Start: 06-02-2022 ARTERIAL BLOOD GAS, POC Solange Mercer MD Work Phone: Start: 06-02-2022 CALCIUM, IONIC (POC) Solange Mercer MD Work Phone: Start: 06-02-2022 CREATININE W/GFR POINT OF CARE Solange Mercer MD Work Phone: Start: 06-02-2022 ELECTROLYTES PLUS Solange Mercer MD Work Phone: Start: 06-02-2022 LACTIC ACID,POINT OF CARE Solange Mercer MD Work Phone: Start: 06-02-2022 POC GLOBAL HEMOSTASIS (TEG 6S) Solange Mercer MD Work Phone: Start: 06-02-2022 End: 06-02-2022 ARTERIAL BLOOD GAS, POC Solange Mercer MD Work Phone: Start: 06-02-2022 End: 06-02-2022 CALCIUM, IONIC (POC) Solange Mercer MD Work Phone: Start: 06-02-2022 End: 06-02-2022 Gluc bld gluc mntr dev cleared fda spec home use Solange Mercer MD Work Phone: Start: 06-02-2022 End: 06-02-2022 Potassium [Moles/volume] in Serum or Plasma Solange Mercer MD Work Phone: Start: 06-02-2022 End: 06-02-2022 Sodium [Moles/volume] in Serum or Plasma Solange Mercer MD Work Phone: Start: 06-02-2022 End: 06-02-2022 ARTERIAL BLOOD GAS, POC Solange Mercer MD Work Phone: Start: 06-02-2022 End: 06-02-2022 CALCIUM, IONIC (POC) Solange Mercer MD Work Phone: Start: 06-02-2022 End: 06-02-2022 Gluc bld gluc mntr dev cleared fda spec home use Solange Mercer MD Work Phone: Start: 06-02-2022 End: 06-02-2022 Potassium [Moles/volume] in Serum or Plasma Solange Mercer MD Work Phone: Start: 06-02-2022 End: 06-02-2022 Sodium [Moles/volume] in Serum or Plasma Solange Mercer MD Work Phone: Start: 06-02-2022 POC GLOBAL HEMOSTASIS (TEG 6S) Solange Mercer MD Work Phone: Start: 06-02-2022 ANION GAP (CALC) POC Solange Mercer MD Work Phone: Start: 06-02-2022 ARTERIAL BLOOD GAS, POC Solange Mercer MD Work Phone: Start: 06-02-2022 CALCIUM, IONIC (POC) Solange Mercer MD Work Phone: Start: 06-02-2022 Chloride [Moles/volume] in Serum or Plasma Solange Mercer MD Work Phone: Start: 06-02-2022 Gluc bld gluc mntr dev cleared fda spec home use Solange Mercer MD Work Phone: Start: 06-02-2022 Potassium [Moles/volume] in Serum or Plasma Solange Mercer MD Work Phone: Start: 06-02-2022 Sodium [Moles/volume] in Serum or Plasma Solange Mercer MD Work Phone: Start: 06-02-2022 End: 06-02-2022 Coronary artery bypass 3 coronary venous grafts Ariel Purdy MD Work Phone: Start: 06-02-2022 Glucose blood reagent strip Solange nelson MD Work Phone: Start: 06-02-2022 Glucose blood reagent strip Solange nelson MD Work Phone: Start: 06-02-2022 Basic metabolic panel calcium total Sarwat Preciado MD Work Phone: Start: 06-01-2022 Thromboplastin time partial plasma/whole blood Solange Mercer MD Work Phone: Start: 06-01-2022 Glucose blood reagent strip Solange nelson MD Work Phone: Start: 06-01-2022 End: 06-01-2022 Thromboplastin time partial plasma/whole blood Solange Mercer MD Work Phone: Start: 06-01-2022 Glucose blood reagent strip Solange nelson MD Work Phone: Start: 06-01-2022 Basic metabolic panel calcium total Solange Mercer MD Work Phone: Start: 06-01-2022 Glucose blood reagent strip Solange nelson MD Work Phone: Start: 06-01-2022 Blood count platelet automated Avelino Kent DO Work Phone: Start: 05-31-2022 Glucose blood reagent strip Solange nelson MD Work Phone: Start: 05-31-2022 Thromboplastin time partial plasma/whole blood Solange Mercer MD Work Phone: Start: 05-31-2022 Glucose blood reagent strip Solange nelson MD Work Phone: Start: 05-31-2022 Ecg routine ecg w/least 12 lds i&r only Franklin Parsons MD Work Phone: Start: 05-31-2022 End: 05-31-2022 Basic metabolic panel calcium total Solange Mercer MD Work Phone: Start: 05-31-2022 Glucose blood reagent strip Solange nelson MD Work Phone: Start: 05-31-2022 ARTERIAL BLOOD GAS, POC Solange Mercer MD Work Phone: Start: 05-31-2022 Gluc bld gluc mntr dev cleared fda spec home use Solange Mercer MD Work Phone: Start: 05-30-2022 End: 05-30-2022 Culture bacterial quanttative colony count urine Eddie Machado DIRECTOR SOCIAL SERVICE - PROJECT MANAGEMENT INTERN Work Phone: Start: 05-30-2022 Blood typing serologic abo Eddie montana DIRECTOR SOCIAL SERVICE - PROJECT MANAGEMENT INTERN Work Phone: Start: 05-30-2022 End: 05-30-2022 Hemoglobin glycosylated a1c Eddie galdamez DIRECTOR SOCIAL SERVICE - PROJECT MANAGEMENT INTERN Work Phone: Start: 05-30-2022 Urinalysis microscopic only Eddie galdamez DIRECTOR SOCIAL SERVICE - PROJECT MANAGEMENT INTERN Work Phone: Start: 05-30-2022 Urnls dip stick/tablet rgnt auto w/o microscopy Eddie Machado DIRECTOR SOCIAL SERVICE - PROJECT MANAGEMENT INTERN Work Phone: Start: 05-30-2022 Glucose blood reagent strip Avelino Kent D O Work Phone: Start: 05-30-2022 Glucose blood reagent strip Avelino Kent D O Work Phone: Start: 05-30-2022 Thromboplastin time partial plasma/whole blood Avelino Kent DO Work Phone: Start: 05-30-2022 End: 05-30-2022 Blood count platelet automated Avelino Kent DO Work Phone: Start: 05-29-2022 Glucose blood reagent strip Avelino Kent D O Work Phone: Start: 05-29-2022 Glucose blood reagent strip Avelino Kent D O Work Phone: Start: 05-29-2022 Glucose blood reagent strip Avelino Kent D O Work Phone: Start: 05-29-2022 BASIC METABOLIC PANEL W/ REFLEX TO MG FOR LOW K Talib Saldaña MD Work Phone: Start: 05-29-2022 End: 05-29-2022 Thromboplastin time partial plasma/whole blood Avelino Kent DO Work Phone: Start: 05-28-2022 Glucose blood reagent strip Avelino Kent D O Work Phone: Start: 05-28-2022 Glucose blood reagent strip Avelino Kent D O Work Phone: Start: 05-28-2022 Glucose blood reagent strip Avelino Kent D O Work Phone: Start: 05-28-2022 Thromboplastin time partial plasma/whole blood Avelino Kent DO Work Phone: Start: 05-28-2022 Glucose blood reagent strip Avelino Kent D O Work Phone: Start: 05-28-2022 BASIC METABOLIC PANEL W/ REFLEX TO MG FOR LOW K Talib Saldaña MD Work Phone: Start: 05-28-2022 Blood count platelet automated Avelino Kent DO Work Phone: Start: 05-27-2022 End: 05-27-2022 Thromboplastin time partial plasma/whole blood Avelino Kent DO Work Phone: Start: 05-27-2022 Glucose blood reagent strip Avelino Kent D O Work Phone: Start: 05-27-2022 Thromboplastin time partial plasma/whole blood Avelino Kent DO Work Phone: Start: 05-27-2022 End: 05-27-2022 Calcium ionized Sarwat Preciado MD Work Phone: Start: 05-27-2022 End: 05-27-2022 Dup-scan uxtr art/artl bpgs compl bi study Anam García Shamir PA Work Phone: Start: 05-27-2022 Duplex scan extracranial art compl bi study Anam García Shamir PA Work Phone: Start: 05-27-2022 Glucose blood reagent strip Avelino Kent D O Work Phone: Start: 05-27-2022 BASIC METABOLIC PANEL W/ REFLEX TO MG FOR LOW K Talib Saldaña MD Work Phone: Start: 05-27-2022 Thromboplastin time partial plasma/whole blood Avelino Kent DO Work Phone: Start: 05-26-2022 Thromboplastin time partial plasma/whole blood Yanelis Grijalva MD Work Phone: Start: 05-26-2022 Glucose blood reagent strip Yanelis Grijalva MD Work Phone: Start: 05-26-2022 End: 05-26-2022 Thromboplastin time partial plasma/whole blood Magui Davis MD Work Phone: Start: 05-26-2022 Cardiac catheterization Lorna Ware Work Phone: Start: 05-26-2022 Glucose blood reagent strip Yanelis Grijalva MD Work Phone: Start: 05-26-2022 BASIC METABOLIC PANEL W/ REFLEX TO MG FOR LOW K Fly Zapata DO Work Phone: Start: 05-26-2022 End: 05-26-2022 Thromboplastin time partial plasma/whole blood Alessio Bhat MD Work Phone: Start: 05-25-2022 Glucose blood reagent strip Yanelis Grijalva MD Work Phone: Start: 05-25-2022 Glucose blood reagent strip Yanelis Grijalva MD Work Phone: Start: 05-25-2022 Glucose blood reagent strip Yanelis Grijalva MD Work Phone: Start: 05-25-2022 Echo tthrc r-t 2d w/wom-mode compl spec&colr d Fly Zapata DO Work Phone: Start: 05-25-2022 BASIC METABOLIC PANEL W/ REFLEX TO MG FOR LOW K Snehad Rosa Zapata DO Work Phone: Start: 05-25-2022 End: 05-25-2022 Thromboplastin time partial plasma/whole blood Yanelis Grijalva MD Work Phone: Start: 05-24-2022 Glucose blood reagent strip Yanelis Grijalva MD Work Phone: Start: 05-24-2022 End: 05-24-2022 Thromboplastin time partial plasma/whole blood Alessio Bhat MD Work Phone: Start: 05-24-2022 Glucose blood reagent strip Alessio viveros MD Work Phone: Start: 05-24-2022 BASIC METABOLIC PANEL W/ REFLEX TO MG FOR LOW K Snehad Rosa Zapata DO Work Phone: Start: 05-24-2022 Lipid panel Fly Zapata DO Work Phone: Start: 05-24-2022 Lipoprotein direct measurement ldl cholesterol Fly Zapata DO Work Phone: Start: 05-24-2022 Ecg routine ecg w/least 12 lds i&r only Fly Zapata DO Work Phone: Start: 05-24-2022 Glucose blood reagent strip Fly hawthorne DO Work Phone: Start: 05-24-2022 Thromboplastin time partial plasma/whole blood Fly Zapata DO Work Phone: Start: 05-23-2022 Us retroperitoneal real time w/image complete Uriel Grier MD Work Phone: Start: 05-23-2022 BASIC METABOLIC PANEL W/ REFLEX TO MG FOR LOW K Uriel Grier MD Work Phone: Start: 05-23-2022 Glucose blood reagent strip Fly hawthorne DO Work Phone: Start: 05-23-2022 Assay of troponin quantitative Fly Zapata DO Work Phone: Start: 05-23-2022 Glucose blood reagent strip Fly hawthorne DO Work Phone: Start: 05-23-2022 Ecg routine ecg w/least 12 lds i&r only Fly Zapata DO Work Phone: Start: 05-23-2022 End: 05-23-2022 Hemoglobin glycosylated a1c Fly hawthorne DO Work Phone: Start: 05-23-2022 CALCIUM, IONIC (POC) Fly Zapata DO Work Phone: Start: 05-23-2022 CREATININE W/GFR POINT OF CARE Fly Zapata DO Work Phone: Start: 05-23-2022 ELECTROLYTES PLUS Fly Zapata DO Work Phone: Start: 05-23-2022 LACTIC ACID,POINT OF CARE Fly dacosta DO Work Phone: Start: 05-23-2022 VENOUS BLOOD GAS, POINT OF CARE Fly Zapata DO Work Phone: Start: 05-23-2022 Protein total xcpt refractometry urine Uriel Grier MD Work Phone: Start: 05-23-2022 Urinalysis microscopic only Uriel bustos MD Work Phone: Start: 05-23-2022 Urnls dip stick/tablet rgnt auto w/o microscopy Uriel Grier MD Work Phone: Start: 10-06-2021 Comprehensive metabolic panel Lanette Moore MD Work Phone: Start: 09-28-2021 End: 09-28-2021 Basic metabolic panel calcium total Anna Serrano MD Work Phone: Start: 09-17-2021 Basic metabolic panel calcium total Solange Mercer MD Work Phone: Start: 09-12-2021 Blood count complete auto&auto difrntl wbc Ben Cesar PA-C Work Phone: Start: 09-11-2021 Basic metabolic panel calcium total Solange Mercer MD Work Phone: Start: 09-11-2021 Radiologic examination osseous survey compl Lanette Moore MD Work Phone: Start: 09-11-2021 Ct thorax w/o contrast material Олег Ambriz MD Work Phone: Start: 09-11-2021 Blood count complete auto&auto difrntl wbc Ben Cesar PA-C Work Phone: Start: 09-10-2021 Alpha-fetoprotein serum Олег Ambriz MD Work Phone: Start: 09-10-2021 25 hydroxy includes fractions if performed Ben Cesar PA-C Work Phone: Start: 09-10-2021 BASIC METABOLIC PANEL W/ REFLEX TO MG FOR LOW K Ben Cesar PA-C Work Phone: Start: 09-09-2021 BASIC METABOLIC PANEL W/ REFLEX TO MG FOR LOW K Luis Felipe Hinson MD Work Phone: Start: 09-09-2021 SPECIMEN REJECTION Solange Mercer MD Work Phone: Start: 09-09-2021 Blood count complete auto&auto difrntl wbc Brian Gracia MD Work Phone: Start: 09-09-2021 SPECIMEN REJECTION Brian Gracia MD Work Phone: Start: 09-08-2021 BASIC METABOLIC PANEL W/ REFLEX TO MG FOR LOW K Ben APARICIOC Work Phone: Start: 09-08-2021 Mra head w/o contrst material Ben APARICIOC Work Phone: Start: 09-08-2021 Parathyroid planar imaging w/wo subtraction Talib Saldaña MD Work Phone: Start: 09-08-2021 COVID-19, RAPID Ben Olson A-C Work Phone: Start: 09-08-2021 Cardiolipin antibody each ig class Ben Cesar PA-C Work Phone: Start: 09-08-2021 End: 09-08-2021 CULTURE, BLOOD 1 Ben Olson A-C Work Phone: Start: 09-08-2021 Assay of magnesium Brian Gracia MD Work Phone: Start: 09-08-2021 BASIC METABOLIC PANEL W/ REFLEX TO MG FOR LOW K Brian Gracia MD Work Phone: Start: 09-08-2021 C-reactive protein Brian Gracia MD Work Phone: Start: 09-07-2021 Assay of magnesium Ben Olson A-C Work Phone: Start: 09-07-2021 BASIC METABOLIC PANEL W/ REFLEX TO MG FOR LOW K Ben APARICIOC Work Phone: Start: 09-07-2021 BASIC METABOLIC PANEL W/ REFLEX TO MG FOR LOW K Brian Gracia MD Work Phone: Start: 09-07-2021 Blood count complete auto&auto difrntl wbc Brian Gracia MD Work Phone: Start: 09-07-2021 Cell count misc body fluids w/differential count Sharda Solitario MD Work Phone: Start: 09-06-2021 EXTUBATION Krystian Farley MD Work Phone: Start: 09-06-2021 BASIC METABOLIC PANEL W/ REFLEX TO MG FOR LOW K Brian Gracia MD Work Phone: Start: 09-06-2021 ARTERIAL BLOOD GAS, POC Brian zavaleta MD Work Phone: Start: 09-06-2021 End: 09-06-2021 Gluc bld gluc mntr dev cleared fda spec home use Brian Gracia MD Work Phone: Start: 09-05-2021 Blood gases any combination ph pco2 po2 co2 hco3 Tristian Betancourt MD Work Phone: Start: 09-05-2021 BASIC METABOLIC PANEL W/ REFLEX TO MG FOR LOW K Brian Gracia MD Work Phone: Start: 09-05-2021 Blood count complete auto&auto difrntl wbc Brian Gracia MD Work Phone: Start: 09-04-2021 ELECTROLYTE PANEL W/ REFLEX TO MG FOR LOW K Uriel Grier MD Work Phone: Start: 09-04-2021 Mri spinal canal cervical w/o contrast matrl Artur Quiñones MD Work Phone: Start: 09-04-2021 ARTERIAL BLOOD GAS, POC Brian zavaleta MD Work Phone: Start: 09-04-2021 End: 09-04-2021 Gluc bld gluc mntr dev cleared fda spec home use Brian Gracia MD Work Phone: Start: 09-04-2021 BASIC METABOLIC PANEL W/ REFLEX TO MG FOR LOW K Brian Gracia MD Work Phone: Start: 09-04-2021 Radiologic exam chest single view Robert Mcghee MD Work Phone: Start: 09-03-2021 Antibody hiv-1&hiv-2 single result Shun Cervantes MD Work Phone: Start: 09-03-2021 Assay of lipase Rakan Lozano MD Work Phone: Start: 09-03-2021 BASIC METABOLIC PANEL W/ REFLEX TO MG FOR LOW K Rakan Lozano MD Work Phone: Start: 09-03-2021 ARTERIAL BLOOD GAS, POC Brian zavaleta MD Work Phone: Start: 09-03-2021 Gluc bld gluc mntr dev cleared fda spec home use Brian Gracia MD Work Phone: Start: 09-02-2021 Radiologic exam abdomen 1 view Rakan Lozano MD Work Phone: Start: 09-02-2021 Glucose blood reagent strip Brian franklin MD Work Phone: Start: 09-02-2021 Creatinine other source Anna Serrano MD Work Phone: Start: 09-02-2021 EOSINOPHILS, URINE Anna Serrano MD Work Phone: Start: 09-02-2021 Assay of parathormone Anna Ware Work Phone: Start: 09-02-2021 Complement antigen each component Anna Serrano MD Work Phone: Start: 09-02-2021 GENERIC LABORATORY CHARGE Anna alejo MD Work Phone: Start: End: 09-02-2021 Assay of triglycerides Rakan Lozano MD Work Phone: Start: 09-02-2021 BASIC METABOLIC PANEL W/ REFLEX TO MG FOR LOW K Rakan Lozano MD Work Phone: Start: 09-02-2021 Drug screen quantitative vancomycin Rakan Lozano MD Work Phone: Start: 09-02-2021 Radiologic exam chest single view Gisselle Cortez Sra, MD Work Phone: Start: 09-02-2021 ARTERIAL BLOOD GAS, POC Brian zavaleta MD Work Phone: Start: 09-01-2021 Mri abdomen w/o contrast material Rakan Lozano MD Work Phone: Start: 09-01-2021 End: 09-01-2021 Assay of triglycerides Brian abreu MD Work Phone: Start: 09-01-2021 BASIC METABOLIC PANEL W/ REFLEX TO MG FOR LOW K Issac Angulo MD Work Phone: Start: 09-01-2021 Drug screen quantitative vancomycin Issac Angulo MD Work Phone: Start: 09-01-2021 ARTERIAL BLOOD GAS, POC Brian zavaleta MD Work Phone: Start: 08-31-2021 End: 08-31-2021 CULTURE, BLOOD 1 Rakan Lozano MD Work Phone: Start: 08-31-2021 Radiologic exam chest single view Rakan Lozano MD Work Phone: Start: 08-31-2021 BASIC METABOLIC PANEL W/ REFLEX TO MG FOR LOW K Issac Angulo MD Work Phone: Start: 08-31-2021 ARTERIAL BLOOD GAS, POC Brian zavaleta MD Work Phone: Start: 08-31-2021 End: 08-31-2021 Gluc bld gluc mntr dev cleared fda spec home use Brian Gracia MD Work Phone: Start: 08-30-2021 Virus centrifuge enhncd id imfluor stain ea Rakan Lozano MD Work Phone: Start: 08-30-2021 End: 08-30-2021 Dup-scan artl celeste abdl/pel/scrot&/rpr orgn com Issac Angulo MD Work Phone: Start: 08-30-2021 RESPIRATORY PANEL, MOLECULAR, WITH COVID-19 Rakan Lozano MD Work Phone: Start: 08-30-2021 Urinalysis microscopic only Rakan Ware Work Phone: Start: 08-30-2021 Urnls dip stick/tablet rgnt auto w/o microscopy Rakan Lozano MD Work Phone: Start: 08-30-2021 Hepatic function panel Nini Cha MD Work Phone: Start: 08-30-2021 Procalcitonin (pct) Rakan Lozano MD Work Phone: Start: 08-30-2021 End: 08-30-2021 CULTURE, BLOOD 1 Rakan Lozano MD Work Phone: Start: 08-30-2021 Radiologic exam chest single view Rakan Lozano MD Work Phone: Start: 08-30-2021 ARTERIAL BLOOD GAS, POC Brian zavaleta MD Work Phone: Start: 08-30-2021 Gluc bld gluc mntr dev cleared fda spec home use Brian Gracia MD Work Phone: Start: 08-30-2021 BASIC METABOLIC PANEL W/ REFLEX TO MG FOR LOW K Issac Angulo MD Work Phone: Start: 08-30-2021 Cortisol total Nini Cha MD Work Phone: Start: 08-29-2021 Assay of renin Nini Cha MD Work Phone: Start: 08-29-2021 Assay of renin Issac Angulo MD Work Phone: Start: 08-29-2021 SPECIMEN REJECTION Issac Angulo MD Work Phone: Start: 08-29-2021 Echocardiography Issac Angulo MD Work Phone: Start: 08-29-2021 Assay of troponin quantitative Issac Agnulo MD Work Phone: Start: 08-29-2021 Ecg routine ecg w/least 12 lds i&r only Issac Angulo MD Work Phone: Start: 08-29-2021 Iadna s aureus methicillin resist amp probe tq Jared Hernandez MD Work Phone: Start: 08-29-2021 Assay of troponin quantitative Issac Angulo MD Work Phone: Start: 08-29-2021 BASIC METABOLIC PANEL W/ REFLEX TO MG FOR LOW K Issac Angulo MD Work Phone: Start: 08-29-2021 RESPIRATORY CARE EVALUATION ONLY Mercedes Verdin MD Work Phone: Start: 08-29-2021 Echo transthorc r-t 2d w/wo m-mode rec f-up/lmtd Myke Soliz DO Work Phone: Start: 08-29-2021 ARTERIAL BLOOD GAS, POC Myke Soliz DO Work Phone: Start: 08-29-2021 LACTIC ACID,POINT OF CARE Myke Soliz DO Work Phone: Start: 08-29-2021 Echo tthrc r-t 2d w/wom-mode compl spec&colr d Efrem Arreola MD Work Phone: Start: 08-29-2021 Radiologic exam abdomen 1 view Sadie Quintanilla DO Work Phone: Start: 08-29-2021 Radiologic exam chest single view Sadie Quintanilla DO Work Phone: Start: 08-29-2021 End: 08-29-2021 Cul bact xcpt urine blood/stool aerobic isol Myke Soliz DO Work Phone: Start: 08-29-2021 Cell count misc body fluids w/differential count Myke Soliz DO Work Phone: Start: 08-29-2021 End: 08-29-2021 Glucose body fluid other than blood Myke Soliz DO Work Phone: Start: 08-29-2021 CALCIUM, IONIC (POC) Myke Soliz DO Work Phone: Start: 08-29-2021 CREATININE W/GFR POINT OF CARE Myke Soliz DO Work Phone: Start: 08-29-2021 ELECTROLYTES PLUS Myke Soliz DO Work Phone: Start: 08-29-2021 LACTIC ACID,POINT OF CARE Myke Soliz DO Work Phone: Start: 08-29-2021 VENOUS BLOOD GAS, POINT OF CARE Myke Soliz DO Work Phone: Start: 08-29-2021 BASIC METABOLIC PANEL W/ REFLEX TO MG FOR LOW K Efrem Arreola MD Work Phone: Start: 08-29-2021 End: 08-29-2021 Natriuretic peptide Efrem Arreola MD Work Phone: Start: 08-29-2021 Radiologic exam chest single view Efrem Arreola MD Work Phone: Start: 08-29-2021 Ecg routine ecg w/least 12 lds i&r only Efrem Arreola MD Work Phone: Start: 08-28-2021 SARS Antigen (LFIA) PHYSICIAN NO FAMILY History of coronary artery bypass grafting S/P CABG (coronary artery bypass graft) Fly Zapata DO Work Phone: Plan of Treatment Date Care Activity Detail Author Start: 06-10-2025 Adult BMI Follow Up Plan Adult BMI Follow Up Plan [facility] Start: 06-10-2025 Adult BMI Screening Adult BMI Screen ing [facility] Start: 06-10-2025 Tobacco Screening Tobacco Screening [facility] Start: 02-28-2025 Adult BMI Follow Up Plan Adult BMI Follow Up Plan [facility] Start: 02-28-2025 Adult BMI Screening Adult BMI Screen ing [facility] Start: 02-28-2025 Depression Screening Depression Scre ening [facility] Start: 02-28-2025 Tobacco Screening Tobacco Screening [facility] Start: 01-15-2025 Adult BMI Follow Up Plan Adult BMI Follow Up Plan [facility] Start: 01-15-2025 Adult BMI Screening Adult BMI Screen ing [facility] Start: 01-15-2025 Depression Screening Depression Scre ening [facility] Start: 01-15-2025 Tobacco Screening Tobacco Screening [facility] Start: 12-30-2024 Adult BMI Screening Adult BMI Screen ing [facility] Start: 12-30-2024 Tobacco Screening Tobacco Screening [facility] Start: 11-22-2024 Adult BMI Follow Up Plan Adult BMI Follow Up Plan [facility] Start: 11-22-2024 Adult BMI Screening Adult BMI Screen ing [facility] Start: 11-22-2024 Depression Screening Depression Scre ening [facility] Start: 11-22-2024 Diabetic foot examination Diabetic Foot Exam [facility] Start: 11-22-2024 Tobacco Screening Tobacco Screening [facility] Start: 11-04-2024 Influenza vaccination Influenza Vacc ine [facility] Start: 10-03-2024 Adult BMI Screening Adult BMI Screen ing [facility] Start: 09-24-2024 Tobacco Screening Tobacco Screening [facility] Start: 09-19-2024 Adult BMI Follow Up Plan Adult BMI Follow Up Plan [facility] Start: 09-19-2024 Adult BMI Screening Adult BMI Screen ing [facility] Start: 09-19-2024 Depression Screening Depression Scre ening [facility] Start: 09-12-2024 End: 09-12-2024 Patient encounter procedure 09/12/2024 3:20 PM EDT Office Visit [facility] [address] [place] [address] Jose Khanna, DIRECTOR SOCIAL SERVICE-RECREATION SUPERVISOR [address] [place] [address] [facility] Start: 07-17-2024 Adult BMI Follow Up Plan Adult BMI Follow Up Plan [facility] Start: 07-17-2024 Adult BMI Screening Adult BMI Screen ing [facility] Start: 07-17-2024 Depression Screening Depression Scre ening [facility] Start: 07-17-2024 Tobacco Screening Tobacco Screening [facility] Start: 06-03-2024 End: 06-03-2024 Patient encounter procedure 06/03/2024 3:20 PM EDT Office Visit [facility] [address] [place] [address] Jose Khanna, DIRECTOR SOCIAL SERVICE-RECREATION SUPERVISOR [address] [place] [address] [facility] Start: 05-09-2024 Adult BMI Follow Up Plan Adult BMI Follow Up Plan [facility] Start: 05-09-2024 Adult BMI Screening Adult BMI Screen ing [facility] Start: 05-09-2024 Depression Screening Depression Scre ening [facility] Start: 05-09-2024 Tobacco Screening Tobacco Screening [facility] Start: 05-04-2024 Adult BMI Screening Adult BMI Screen ing [facility] Start: 05-04-2024 Depression Screening Depression Scre ening [facility] Start: 05-04-2024 Tobacco Screening Tobacco Screening [facility] Start: 04-19-2024 Adult BMI Follow Up Plan Adult BMI Follow Up Plan [facility] Start: 04-19-2024 Adult BMI Screening Adult BMI Screen ing [facility] Start: 04-19-2024 Depression Screening Depression Scre ening [facility] Start: 04-19-2024 Tobacco Screening Tobacco Screening [facility] Start: 03-28-2024 Adult BMI Screening Adult BMI Screen ing [facility] Start: 03-28-2024 Depression Screening Depression Scre ening [facility] Start: 03-28-2024 Tobacco Screening Tobacco Screening [facility] Start: 03-08-2024 Adult BMI Follow Up Plan Adult BMI Follow Up Plan [facility] Start: 03-08-2024 Adult BMI Screening Adult BMI Screen ing [facility] Start: 03-08-2024 Depression Screening Depression Scre ening [facility] Start: 03-08-2024 Tobacco Screening Tobacco Screening [facility] Start: 02-29-2024 End: 02-29-2024 Patient encounter procedure 02/29/2024 3:20 PM EST Office Visit [facility] [address] [place] [address] Jose Khanna, DIRECTOR SOCIAL SERVICE-RECREATION SUPERVISOR [address] [place] [address] [facility] Start: 02-13-2024 End: 02-13-2024 Nutrition therapy 02/13/2024 10:30 AM EST Support Visit [facility] [address] [place] [id number] Roslyn Blancas [facility] Start: 12-17-2023 Adult BMI Follow Up Plan Adult BMI Follow Up Plan [facility] Start: 11-23-2023 End: 11-23-2023 Patient encounter procedure 11/23/2023 3:20 PM EDT Office Visit [facility] [address] [place] [address] Jose Khanna, DIRECTOR SOCIAL SERVICE-RECREATION SUPERVISOR [address] [place] [address] [facility] Start: 11-05-2023 Influenza vaccination Influenza Vacc ine [facility] Start: 10-19-2023 End: 10-19-2023 Patient encounter procedure 10/19/2023 10:20 AM EDT Office Visit [facility] [address] [place] [address] Jose Khanna, DIRECTOR SOCIAL SERVICE-RECREATION SUPERVISOR [address] [place] [address] [facility] Start: 10-18-2023 End: 10-18-2023 Patient encounter procedure 10/18/2023 10:20 AM EDT Office Visit [facility] [address] [place] [address] Jose Khanna, DIRECTOR SOCIAL SERVICE-RECREATION SUPERVISOR [address] [place] [address] [facility] Start: 10-04-2023 End: 10-04-2023 Clinical Support 10/04/2023 3:00 PM EDT Clinical Support [facility] [address] [place] [address] [facility] Start: 09-13-2023 Diabetic foot examination Diabetic Foot Exam [facility] Start: 08-10-2023 GFR test (Diabetes, CKD 3-4, OR last GFR 15-59) GFR test (Diabetes, CKD 3-4, OR last GFR 15-59) [employer] Start: 08-10-2023 Urine screening for protein [employer] Start: 07-18-2023 End: 07-18-2023 Patient encounter procedure 07/18/2023 10:20 AM EDT Office Visit [facility] [address] [place] [address] Jose Khanna, DIRECTOR SOCIAL SERVICE-RECREATION SUPERVISOR [address] [place] [address] [facility] Start: 07-08-2023 GFR test (Diabetes, CKD 3-4, OR last GFR 15-59) GFR test (Diabetes, CKD 3-4, OR last GFR 15-59) [employer] Start: 07-08-2023 Urine screening for protein Diabetic Alb to Cr ratio (uACR) test [employer] Start: 2023 End: 2023 Clinical Support 2023 1:30 PM EDT [facility] [address] [place] [address] [facility] Start: 06-07-2023 GFR test (Diabetes, CKD 3-4, OR last GFR 15-59) GFR test (Diabetes, CKD 3-4, OR last GFR 15-59) [facility] Start: 06-07-2023 [facility] Start: 06-07-2023 End: 06-07-2023 Patient encounter procedure 06/07/2023 9:45 AM EDT Office Visit [facility] [address] [place] [address] Jose Khanna, DIRECTOR SOCIAL SERVICE-RECREATION SUPERVISOR [address] [place] [address] [facility] Start: 05-25-2023 Lipid panel [facility] Start: 05-24-2023 [facility]rine [facility] Start: 05-18-2023 End: 05-18-2023 Clinical Support 05/18/2023 10:00 AM EDT Clinical Support [facility] [address] [place] [address] [facility] Start: 05-11-2023 End: 05-11-2023 Patient encounter procedure 05/11/2023 1:00 PM EST Office Visit [facility] [address] [place] [address] Jose Khanna, DIRECTOR SOCIAL SERVICE-RECREATION SUPERVISOR [address] [place] [address] [facility] Start: 04-19-2023 End: 04-19-2023 Patient encounter procedure 04/19/2023 9:00 AM EST Office Visit [facility] [address] [place] [id number] Jose Khanna, DIRECTOR SOCIAL SERVICE-RECREATION SUPERVISOR [address] [place] [address] [facility] Start: 11-30-2022 End: 11-30-2022 Patient encounter procedure 11/30/2022 Office Visit Nephrology Tonie Luna, DIRECTOR SOCIAL SERVICE - RECREATION SUPERVISOR [address] [facility] [place] [address] [facility] Start: 11-04-2022 Influenza vaccination Influenza Vacc ine [facility] Start: 10-04-2022 Influenza vaccination Flu vacc ine (Season Ended) [facility] Start: 10-04-2022 [facility] Start: 10-04-2022 End: 10-04-2022 Patient encounter procedure 10/04/2022 Office Visit Nephrology Anna Serrano MD [address] [facility] [place] [address] [facility] Start: 09-22-2022 End: 09-22-2022 Patient encounter procedure 09/22/2022 Appointment Cardiac Rehabilitation [facility] Cardiac Rehab Start: 09-21-2022 End: 09-21-2022 Patient encounter procedure 09/21/2022 Appointment Cardiac Rehabilitation [facility] Cardiac Rehab Start: 09-19-2022 End: 09-19-2022 Patient encounter procedure 09/19/2022 Appointment Cardiac Rehabilitation [facility] Cardiac Rehab Start: 09-15-2022 End: 09-15-2022 Patient encounter procedure 09/15/2022 Appointment Cardiac Rehabilitation [facility] Cardiac Rehab Start: 09-14-2022 End: 09-14-2022 Patient encounter procedure 09/14/2022 Appointment Cardiac Rehabilitation [facility] Cardiac Rehab Start: 09-12-2022 End: 09-12-2022 Patient encounter procedure 09/12/2022 Appointment Cardiac Rehabilitation [facility] Cardiac Rehab Start: 09-08-2022 End: 09-08-2022 Patient encounter procedure 09/08/2022 Appointment Cardiac Rehabilitation [facility] Cardiac Rehab Start: 09-07-2022 End: 09-07-2022 Patient encounter procedure 09/07/2022 Appointment Cardiac Rehabilitation [facility] Cardiac Rehab Start: 09-05-2022 End: 09-05-2022 Patient encounter procedure 09/05/2022 Appointment Cardiac Rehabilitation [facility] Cardiac Rehab Start: 09-01-2022 End: 09-01-2022 Patient encounter procedure 09/01/2022 Appointment Cardiac Rehabilitation [facility] Cardiac Rehab Start: 08-31-2022 End: 08-31-2022 Patient encounter procedure 08/31/2022 Appointment Cardiac Rehabilitation [facility] Cardiac Rehab Start: 08-30-2022 Hemoglobin A1c measurement [facility] Start: 08-29-2022 End: 08-29-2022 Patient encounter procedure 08/29/2022 Appointment Cardiac Rehabilitation [facility] Cardiac Rehab Start: 08-25-2022 End: 08-25-2022 Patient encounter procedure 08/25/2022 Appointment Cardiac Rehabilitation [facility] Cardiac Rehab Start: 08-24-2022 End: 08-24-2022 Patient encounter procedure 08/24/2022 Appointment Cardiac Rehabilitation [facility] Cardiac Rehab Start: 08-22-2022 End: 08-22-2022 Patient encounter procedure 08/22/2022 Appointment Cardiac Rehabilitation [facility] Cardiac Rehab Start: 08-18-2022 End: 08-18-2022 Patient encounter procedure [facility] Cardiac Re[facility] Start: 08-17-2022 End: 08-17-2022 Patient encounter procedure 08/17/2022 Appointment Cardiac Rehabilitation [facility] Cardiac Rehab Start: 08-15-2022 End: 08-15-2022 Patient encounter procedure 08/15/2022 Appointment Cardiac Rehabilitation [facility] Cardiac Rehab Start: 08-11-2022 End: 08-11-2022 Patient encounter procedure 08/11/2022 Appointment Cardiac Rehabilitation [facility] Cardiac Rehab Start: 08-10-2022 End: 08-10-2022 Patient encounter procedure 08/10/2022 Appointment Cardiac Rehabilitation [facility] Cardiac Rehab Start: 08-09-2022 End: 08-09-2022 Patient encounter procedure 08/09/2022 Office Visit Nephrology Anna Serrano MD [address] [facility] [place] [address] [facility] Start: 08-08-2022 End: 08-08-2022 Patient encounter procedure 08/08/2022 Appointment Cardiac Rehabilitation [facility] Cardiac Rehab Start: 08-04-2022 End: 08-04-2022 Patient encounter procedure 08/04/2022 Appointment Cardiac Rehabilitation [facility] Cardiac Rehab Start: 08-03-2022 End: 08-03-2022 Patient encounter procedure 08/03/2022 Appointment Cardiac Rehabilitation [facility] Cardiac Rehab Start: 08-01-2022 End: 08-01-2022 Patient encounter procedure 08/01/2022 Appointment Cardiac Rehabilitation [facility] Cardiac Rehab Start: 07-28-2022 End: 07-28-2022 Patient encounter procedure 07/28/2022 Appointment Cardiac Rehabilitation [facility] Cardiac Rehab Start: 07-27-2022 End: 07-27-2022 Patient encounter procedure 07/27/2022 Appointment Cardiac Rehabilitation [facility] Cardiac Rehab Start: 07-25-2022 End: 07-25-2022 Patient encounter procedure 07/25/2022 Appointment Cardiac Rehabilitation [facility] Cardiac Rehab Start: 07-21-2022 End: 07-21-2022 Patient encounter procedure 07/21/2022 Appointment Cardiac Rehabilitation [facility] Cardiac Rehab Start: 07-20-2022 End: 07-20-2022 Patient encounter procedure 07/20/2022 Appointment Cardiac Rehabilitation [facility] Cardiac Rehab Start: 07-18-2022 End: 07-18-2022 Patient encounter procedure 07/18/2022 Appointment Cardiac Rehabilitation [facility] Cardiac Rehab Start: 07-14-2022 End: 07-14-2022 Patient encounter procedure 07/14/2022 Appointment Cardiac Rehabilitation [facility] Cardiac Rehab Start: 07-13-2022 End: 07-13-2022 Patient encounter procedure 07/13/2022 Appointment Cardiac Rehabilitation [facility] Cardiac Rehab Start: 07-12-2022 End: 07-12-2022 Patient encounter procedure 07/12/2022 Office Visit Cardiology Alecia England MD [address] [facility] [place], [place] [id number] [employer] Start: 07-11-2022 End: 07-11-2022 Patient encounter procedure 07/11/2022 Appointment Cardiac Rehabilitation [facility] Cardiac Rehab Start: 07-07-2022 End: 07-07-2022 Patient encounter procedure 07/07/2022 Appointment Cardiac Rehabilitation [facility] Cardiac Rehab Start: 07-06-2022 End: 07-06-2022 Patient encounter procedure [facility] Cardiac Rehab Start: 12-07-2021 End: 12-07-2021 Patient encounter procedure 12/07/2021 Office Visit Nephrology Anna Serrano MD [address] [place] [address] [facility] Start: 11-04-2021 Influenza vaccination Flu vaccine (# 1) [facility] Start: 11-04-2021 [facility] Start: 10-19-2021 End: 10-19-2021 Patient encounter procedure 10/19/2021 Office Visit Infectious Diseases Ashish Henao MD [address] [facility] [address] [place], [place] [id number] [facility] Infectious Disease Start: 10-06-2021 End: 10-06-2021 Patient encounter procedure 10/06/2021 [place] [address] [place] [address] [facility] Start: 09-28-2021 End: 09-28-2021 Patient encounter procedure [facility] Start: 09-27-2021 End: 09-27-2021 Patient encounter procedure 09/27/2021 Appointment Infusion Therapy [facility] Specialty [facility] ([facility]) Start: 09-26-2021 End: 09-26-2021 Patient encounter procedure 09/26/2021 Appointment Infusion Therapy [facility] ([facility]) Start: 09-25-2021 End: 09-25-2021 Patient encounter procedure 09/25/2021 Appointment Infusion Therapy [facility] ([facility]) Start: 09-24-2021 End: 09-24-2021 Patient encounter procedure 09/24/2021 Appointment Infusion Therapy [facility] ([facility]) Start: 09-23-2021 End: 09-23-2021 Patient encounter procedure 09/23/2021 Appointment Infusion Therapy [facility] ([facility]) Start: 09-22-2021 End: 09-22-2021 Patient encounter procedure 09/22/2021 Appointment Infusion Therapy [facility] ([facility]) Start: 09-21-2021 End: 09-21-2021 Patient encounter procedure 09/21/2021 Appointment Infusion Therapy [facility] ([facility]) Start: 09-20-2021 End: 09-20-2021 Patient encounter procedure 09/20/2021 Appointment Infusion Therapy [facility] Specialty [facility] (MOB) Start: 09-19-2021 End: 09-19-2021 Patient encounter procedure 09/19/2021 Appointment Infusion Therapy [facility] ([facility]) Start: 09-19-2021 End: 09-12-2022 Basic metabolic 2000 panel - Serum or Plasma [facility] [employer] Phone: Start: 09-18-2021 End: 09-18-2021 Patient encounter procedure 09/18/2021 Appointment Infusion Therapy [facility] ([facility]) Start: 09-17-2021 End: 09-17-2021 Patient encounter procedure 09/17/2021 Appointment Infusion Therapy [facility] Specialty [facility] (MOB) Start: 09-16-2021 End: 09-16-2021 Patient encounter procedure 09/16/2021 Appointment Infusion Therapy [facility] ([facility]) Start: 09-15-2021 Subsequent hospital visit by physician 09/15/2021 Hospital Encounter Infusion Therapy [facility] Specialty [facility] (MOB) Start: 09-14-2021 End: 09-14-2021 Patient encounter procedure 09/14/2021 Appointment Oncology [facility] Start: 09-13-2021 End: 09-13-2021 ambulatory [facility] Start: 06-29-2019 Diabetes screen Diabetes screen [facility] Start: 06-29-2019 [facility] [employer] Start: 06-29-2003 DTaP,Tdap and Td Vaccines (1 - Tdap) DTaP,Tdap and Td Vaccines (1 - Tdap) [facility] Start: 06-29-2003 DTaP/Tdap/Td vaccine (1 - Tdap) DTaP/Tdap/Td vaccine (1 - Tdap) [facility] Start: 06-29-2003 Hepatitis B vaccine (1 of 3 - Risk 3-dose series) Hepatitis B vaccine (1 of 3 - Risk 3-dose series) [facility] Start: 06-29-2003 [facility] [employer] Start: 2002 Glaucoma screening [facility] Start: 1996 Depression Screen Depression Screen [facility] Start: 1996 [facility] Start: 1994 Diabetic foot examination [facility] Start: 1990 Pneumococcal 0-64 years Vaccine (1 - PCV) Pneumococcal 0-64 years Vaccine (1 - PCV) [facility] [employer] Start: 1990 [facility] [employer] [facility] Start: 1989 COVID-19 Vaccine (1) COVID-19 Vaccin e (1) [facility] [employer] Start: 1989 [facility] [employer] [facility] Start: 1985 Varicella vaccine (1 of 2 - 2-dose childhood series) Varicella vaccine (1 of 2 - 2-dose childhood series) [facility] Start: 1985 [facility] [employer] Start: 1984 COVID-19 Vaccine (#1) COVID-19 Vacci ne (#1) [facility] [employer] Start: 1984 [facility] [employer] [facility] Start: 1984 Glaucoma screening Diabetic Op hthalmology Exam [facility] Start: 1984 Tobacco Counseling Tobacco Counselin g [facility] ABG draw [facility] Work Phone: [employer] Work Phone: End: 06-29-2022 Basic metabolic 2000 panel - Serum or Plasma [employer] Phone: End: 09-09-2021 Beta-2 Glycoprotein Antibodies [employer] Phone: Beta-2 Glycoprotein Antibodies [employer] Phone: End: 06-02-2022 BLOOD BANK REQUEST [employer] Phone: End: 05-30-2022 Blood Bank Specimen [employer] Phone: End: 06-30-2022 Calcium, Ionized [employer] Phone: CARDIAC PHASE II CARDIAC PHASE I I Card Rehab Ordered: 07/04/2022 [employer] Comment on above: Ordered: 07/04/2022 CARDIAC PHASE II CARDIAC PHASE I I Card Rehab Ordered: 07/07/2022 [employer] Comment on above: Ordered: 07/07/2022 CARDIAC PHASE II CARDIAC PHASE I I Card Rehab Ordered: 07/18/2022 [employer] Comment on above: Ordered: 07/18/2022 End: 06-29-2022 CBC panel - Blood by Automated count [employer] Phone: CBC W Auto Differential panel - Blood [employer] Phone: Continuous pulse oximetry [employer] Phone: Continuous pulse oximetry [employer] Phone: Culture, Blood 1 [employer] Phone: [employer] Work Phone: Glucose [Mass/volume ] in Serum or Plasma [employer] Phone: End: 06-06-2022 Glucose [Mass/volume] in Serum or Plasma [employer] Phone: End: 11-22-2024 Lipid panel Lipid panel Lab Routine Type 2 diabetes mellitus with microalbuminuria, without long-term current use of insulin ([facility]) 1 Occurrences starting 11/23/2023 until 11/22/2024 [facility] Work Phone: Comment on above: 1 Occurrences starti ng 11/23/2023 until 11/22/2024 End: 06-29-2022 Magnesium [Mass/volume] in Serum or Plasma [employer] Phone: End: 08-09-2022 Microalbumin / Creatinine Urine Ratio Microalbumin / Creatinine Urine Ratio Lab Routine Acute kidney injury superimposed on CKD ([facility]) 1 Occurrences starting 08/09/2022 until 08/09/2022 [employer] Phone: Comment on above: 1 Occurrences starti ng 08/09/2022 until 08/09/2022 End: 08-09-2022 Microalbumin, Ur [employer] Phone: Comment on above: Once for 1 Occurrenc es starting 08/09/2022 until 08/09/2022 Nasal Cannula Oxygen [employer] Phone: Oxygen therapy [Minimum Data Set] [employer] Work Phone: Oxygen therapy [Minimum Data Set] [employer] Work Phone: Patient referral [facility] Work Phone: End: 08-29-2021 POC Blood Gas [employer] Work Phone: End: 06-02-2022 PREPARE RBC (CROSSMATCH), 2 Units [employer] Phone: End: 09-09-2021 PREVIOUS SPECIMEN [employer] Work Phone: End: 08-09-2022 PTH, Intact with Ionized Calcium [employer] Phone: Comment on above: 1 Occurrences starti ng 08/09/2022 until 08/09/2022 End: 09-08-2021 PTH-Related Peptide [facility] [employer] Phone: SARS-CoV-2 (COVID-19 ) N gene [Presence] in Respiratory specimen by VIK with probe detection [facility] Work Phone: End: 06-30-2022 Spirometry panel [employer] Work Phone: End: 07-07-2022 Vitamin D 25 Hydroxy [employer] Phone: Comment on above: Once for 1 Occurrenc es starting 07/07/2022 until 07/07/2022 End: 08-09-2022 Vitamin D 25 Hydroxy [facility] Phone: Comment on above: 1 Occurrences starti ng 08/09/2022 until 08/09/2022 XR BONE SURVEY COMPLETE [employer] Phone: XR CHEST PORTABLE [facility] [email or web address] Phone: XR CHEST PORTABLE [facility] [email or web address] Phone: Immunizations Immunization Date Immunization Notes Care Provider [facility] 01-26-2024 influenza virus vaccine, unspecified formulation [facility] Work Phone: [facility] Payers Date Payer Category Payer Self-pay [id number] 2021 Medicaid [id number] 2021 Medicaid [id number] 1. [id number] 1984 Unknown [id number] 2.16.84 0.1.296327.3.579.2.593 1984 Unknown [id number] 2.16. 840.1.593673.3.579.2.175 1984 Unknown [id number] 2.16. 840.1.800646.3.579.2.175 1984 Unknown [id number] 2.16. 840.1.957482.3.579.2.175 1984 Unknown [id number] 2.16.84 0.1.784909.3.579.2.1259 1984 Unknown [id number] 2.16.8 40.1.800080.3.579.2.173 1984 Unknown [id number] 2.16.8 40.1.262861.3.579.2.173 1984 Unknown [id number] 2.16.8 40.1.813338.3.579.2.173 1984 Unknown [id number] 2.16.8 40.1.059552.3.579.2.173 1984 Unknown [id number] 2.16.8 40.1.294805.3.579.2.173 1984 Unknown [id number] 2.16.8 40.1.475968.3.579.2.6 1984 Unknown [id number] 2.16.8 40.1.215087.3.579.2.1285 1984 Unknown [id number] 2.16.8 40.1.822909.3.579.2.1285 1984 Unknown [id number] 2.16. 840.1.603344.3.579.2.1285 1984 Unknown [id number] 2.16.8 40.1.450928.3.579.2.1285 1984 Unknown [id number] 2.16.8 40.1.745495.3.579.2.1285 1984 Unknown [id number] 2.16.8 40.1.959943.3.579.2.6 1984 Unknown [id number] 2.16.8 40.1.327196.3.579.2.1285 1984 Unknown [id number] 2.16.8 40.1.831027.3.579.2.1285 1984 Unknown [id number] 2.16.8 40.1.097879.3.579.2.1285 1984 Unknown [id number] 2.16.8 40.1.026904.3.579.2.1285 1984 Unknown [id number] 2.16.8 40.1.320794.3.579.2.1285 1984 Unknown [id number] 2.16. 840.1.803394.3.579.2.1285 1984 Unknown [id number] 2.16. 840.1.270051.3.579.2.1285 1984 Unknown [id number] 2.16.8 40.1.683053.3.579.2.1286 1959 Medicaid [id number] Unknown [id number] 2.16.8 40.1.580341.3.579.2.531 Social History Date Type Detail Facility Start: 08-28-2021 End: 09-13-2021 Tobacco smoking status [facility] Smoker (finding) [facility] Start: 1985 Sex Assigned At Male [facility] Start: 01-31-2016 End: 10-06-2021 Tobacco smoking status [facility] Smokes tobacco daily [employer] Start: 01-31-2016 End: 04-03-2023 Cigarettes smoked current (pack per day) - Reported [facility] Start: 08-29-2021 End: 07-25-2022 Alcohol intake Current drinker of alcohol (finding) [employer] Phone: Start: 01-31-2016 History SDOH Alcohol Comment socially [employer] Phone: Start: 1985 Sex Assigned At [employer] Phone: Start: 08-19-2021 End: 05-23-2022 Exposure to SARS-CoV-2 (event) Not sure [employer] End: 09-13-2021 History of tobacco use Cigarette Smoker [employer] Phone: Start: 10-06-2021 End: 04-03-2023 Tobacco use and exposure Former smokeless tobacco user [employer] Phone: Start: 10-19-2021 End: 04-03-2023 Tobacco smoking status [facility]IS Ex-smoker [employer] End: 10-20-2019 History of tobacco use Snuff User [employer] Phone: Start: 04-03-2023 End: 11-23-2023 Alcoholic beverage intake Ex-drinker (finding) [facility] Start: 01-26-2022 End: 04-03-2023 Social connection and isolation panel [facility] Do you belong to any clubs or organizations such as zoroastrian groups, unions, fraternal or athletic groups, or school groups? No [facility] Are you now , , , , never or living with a partner? Living with partner [facility] How often to you hav e a drink containing alcohol? Monthly or less [facility] How many standard dr inks containing alcohol do you have on a typical day? 1 or 2 [facility] How often do you hav e 6 or more drinks on 1 occasion? Never [facility] How hard is it for y ou to pay for the very basics like food, housing, medical care, and heating Not hard at all [facility] Do you feel stress - tense, restless, nervous, or anxious, or unable to sleep at night because your mind is troubled all the time - these days [OSQ] To some extent [facility] Start: 01-26-2022 Education 15 [facility] Start: 05-31-2017 Alcohol Comment Occasionally [facility] Start: 10-09-2014 Sex Male (finding) [facility] Start: 09-12-2022 End: 03-06-2022 Tobacco use and exposure User of smokeless tobacco [facility] How hard is it for y ou to pay for the very basics like food, housing, medical care, and heating Not very hard [facility] Medical Equipment Procedure Code Equipment Code Equipment Original Text Equipment Identifier Dates [id number] Start: 05-31-2022 [id number]_[facility] Start: 06-02-2022 [id number] Start: 07-12-2022 Monitor blood lagunas gars twice daily [id number] Start: 07-12-2022 1 Lancet by miscellaneous route in the morning. [id number] Start: 05-05-2023 Inject 1 Pen Nee dle under the skin in the morning and 1 Pen Needle before bedtime. [id number] Start: 11-30-2023 End: 06-10-2024 1 Pen Needle by miscellaneous route in the morning. [id number] Start: 05-05-2023 End: 10-02-2023 use 1 PEN NEEDLE to inject MEDICATION subcutaneously as directed [id number] Start: 10-02-2023 End: 11-27-2023 Inject 1 Pen Nee dle under the skin nightly. [id number] Start: 11-27-2023 End: 11-27-2023 USE DIRECTED SUBCUTANEOUSLY (UNDER THE SKIN) NIGHTLY [id number] Start: 11-27-2023 End: 11-30-2023 Coronary Drug El uting Stent-07/25/2022 [id number] Start: 07-25-2022 Clinical Notes 09-12-2021 to 11-14-2024 Telephone Encounter - Laney Snell - 10/02/2024 1:30 PM EDTTelephone Encounter - Laney Snell - 10/02/2024 1:30 PM EDTTelephone Encounter - Princess Grier CMA - 08/09/2024 11:42 AM EDTAttachments Note Date & Type Note Facility 11-14-2024 Note REASON FOR VISIT: Elias Walker is a 39 y.o. male who is being seen today in consultation at the request of No ref. provider found for evaluation of his diabetes. The patient's primary care provider is Jose Khanna MD. Subjective I used to see him for calcium issues in the past which was resolved and discharged. But he is here for a new problem of DM type 2 management. DIABETES HISTORY: Diabetes Mellitus [Type 2] Onset of diabetes(at age OR at which year?): 2023 Family history of diabetes: [x] Yes [] No If yes, who and age of diagnosis?: Mother Complications: Known diabetic complications: nephropathy and cerebrovascular disease Cardiovascular risk factors: diabetes mellitus, dyslipidemia, hypertension, male gender, microalbuminuria, and obesity (BMI >= 30 kg/m2) Eye exam current (within one year): yes 2023: NORMAL Diabetes education: [YES] Seen by a certified indoor environmentalist (CDE) within 12 months : February 2024 Meal plan: [YES] Seen by a philanthropy officer within 12 months [] Consistent carbohydrate diet [] Carbohydrate counting % Estimated adherence per patient: Meal size, estimated per patient: How many meals: [ 2 ] Biggest meal: [ dinner ] Relative size of the meal compared to the biggest meal being 1 or 100% . [ ] Breakfast: [ 2/3 ] Lunch: [ 1 ] Dinner: Snack [rarely]: Scheduled exercise: _Type: _When: _Duration: [NO] Associated HYPOglycemia Insulin regimen: BASAL insulin: [Lantus] _[ 70 ] units [] Once Daily AM [x] Once Daily at bedtime [] Twice daily BOLUS (meal) insulin: [NONE] [] Option 1 by insulin to carb ratio = 1 unit for every [ ] grams of carbohydrate in a meal [] Option 2 [ ] units with each meal [] Option 3 [ ] units with breakfast [ ] units with lunch [ ] units with evening meal + additional units by correctional glucose scale as below [] 2-10 AC(>150 mg/dL of BG), 2-8 HS(>200 mg/dL of BG) [] 1-5 AC(>150 mg/dL of BG), 1-4 HS(>200 mg/dL of BG) dapagliflozin (Farxiga)10 mg daily Trulicity 1.5 mg weekly Diabetes-related symptoms and information Symptom Yes No Comment Hypoglycemia [x] [] Increasing urination [] [x] Increasing drinking/thirst [] [x] Weight loss [] [x] Recent changes in vision [] [x] Chest pain/pressure [] [x] Nausea [] [x] Vomiting [] [x] Early satiety [x] [] Feet numbness/pain/tingling [] [x] Unsteadiness [] [] Claudication [] [] Depression [] [] Patient seeing human resources compensation analyst/ contracting support specialist regularly [x] [] Last exam date: 2023 Last exam results: Patient seeing dentist regularly [] [x] Patient seeing voice intercept technician regularly [] [x] Last exam date: Last exam results: REVIEW OF SYSTEMS Review of Systems Medical History[1] Surgical History[2] Current Medications[3] Allergies[4] Family History[5] reports that he has quit smoking. His smoking use included cigarettes. He has a 4.2 pack-year smoking history. He has never used smokeless tobacco. He reports current alcohol use. He reports that he does not use drugs. Objective PHYSICAL EXAM: Vitals: 11/14/24 1020 BP: 112/79 BP Location: Right arm Patient Position: Sitting BP Cuff Size: Large adult Pulse: 77 Weight: 122 kg (268 lb) Wt Readings from Last 5 Encounters: 11/14/24 122 kg (268 lb) 03/20/24 129 kg (283 lb 9.6 oz) 09/18/23 132 kg (290 lb 8 oz) 07/04/23 132 kg (291 lb 6.4 oz) 05/31/23 135 kg (297 lb 6.4 oz) Ht Readings from Last 5 Encounters: 03/20/24 1.626 m (5' 4 ) 09/18/23 1.626 m (5' 4 ) 07/04/23 1.626 m (5' 4 ) 05/17/23 1.626 m (5' 4 ) 02/20/23 1.626 m (5' 4 ) Body mass index is 46 kg/m???. Physical Exam Component Yes No Comment Lipohypertrophy at insulin injection sites or infusion set insertion sites [x] [] RLQ with bruise 2 x 2 cm Date of feet exam: Foot deformities [] [] Skin lesions [] [] Nail lesions [] [] Distal pulpses [] Normal [] Diminished [] Absent Intact sensation to 10-g monofilaments [] Normal [] Diminished [] Absent Intact ankle DTR [] [] Intact sensation to 128-Hz tuning forks [] [] Intact pinprick sensation [] [] LABS: Recent Data from [facility] Related to POCT Hemoglobin A1c Component 06/10/24 02/29/24 11/23/23 07/18/23 03/08/23 12/16/22 External Poct Hgb A1C 10 Abnormal 8.4 Abnormal 7.5 Abnormal 8.2 Abnormal 7.3 Abnormal 7.6 Abnormal Component 03/20/24 12/31/23 06/20/23 06/20/23 03/15/23 02/15/23 Sodium 138 138 -- -- 137 143 Potassium, Bld 4.9 4.9 -- -- 4.6 4.6 Chloride 104 107 -- -- 98 109 CO2 27 22 -- -- 25 26 Anion gap 7 9 -- -- 14 8 BUN 34 High 36 High -- -- 34 High 26 High Creatinine 2.17 High 2.18 High -- -- 2.39 High 2.13 High Glucose 220 High 270 High -- -- 394 High 124 High Calcium 9.2 8.4 Low -- -- 8.0 Low 9.4 Total Protein 8.1 High 7.9 -- -- -- -- Albumin 4.1 4.1 -- -- -- -- Alkaline Phosphatase 78 102 -- -- -- -- AST 20 23 -- 32 -- -- ALT 30 43 High 52 High -- -- -- Total bilirub (more content not included)... [facility] 10-02-2024 Telephone encounter Note P/c spoke with pt relayed message that Dr. Conrad did not accept him as new pt. [facility] 10-02-2024 Miscellaneous Notes P/c spoke with pt relayed message that Dr. Conrad did not accept him as new pt. documented in this encounter [facility] 08-09-2024 Miscellaneous Notes [facility] called and said pt's insurance will only cover the Imodium capsules, so they were wondering if you could change RX to capsules. Thank you. documented in this encounter [facility] 08-09-2024 Telephone encounter Note [facility] called and said pt's insurance will only cover the Imodium capsules, so they were wondering if you could change RX to capsules. Thank you. [facility] 08-08-2024 Miscellaneous Notes Pt called in requesting a script for Imodium. Thank you. Done documented in this encounter [facility] 08-08-2024 Telephone encounter Note Pt called in requesting a script for Imodium. Thank you. [facility] 08-08-2024 Telephone encounter Note Done [facility] 07-09-2024 Miscellaneous Notes Pt called stated he took his last dose of trulicity he stated he thinks you were going to up the dose ? If so can you can send in a refill? documented in this encounter [facility] 07-09-2024 Telephone encounter Note Pt called stated he took his last dose of trulicity he stated he thinks you were going to up the dose ? If so can you can send in a refill? [employer] [facility] 06-10-2024 History of Present illness Narrative Images from the original note were not included. [address] [place] [address] SUBJECTIVE: Patient ID: Elias Walker is a 38 y.o. male. Chief Complaint Patient presents with Diabetes Hypertension Depression States his sugars have been up and down. Admits he does not follow DM diet at times. 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 Has recently attended nutrition class for DM diet. 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 This has been occurring for over 3 months now. Is currently taking Lantus 70 units nightly and Farxiga. Has stage 3b CKD. Is monitored by nephrology, Dr. Serrano States his moods overall have been stable with Vraylar and fluoxetine. Diabetes He presents for his follow-up diabetic visit. He has type 2 diabetes mellitus. His disease course has been stable. There are no hypoglycemic associated symptoms. Pertinent negatives for hypoglycemia include no headaches or seizures. There are no diabetic associated symptoms. Pertinent negatives for diabetes include no chest pain, no fatigue, no polydipsia, no polyphagia and no polyuria. There are no hypoglycemic complications. Symptoms are stable. There are no diabetic complications. Risk factors for coronary artery disease include diabetes mellitus, dyslipidemia, family history, hypertension, male sex, obesity and sedentary lifestyle. Current diabetic treatment includes oral agent (monotherapy) and insulin injections. He is compliant with treatment most of the time. His weight is stable. He is following a generally unhealthy diet. He participates in exercise intermittently. His home blood glucose trend is fluctuating dramatically. His breakfast blood glucose range is generally 180-200 mg/dl. His lunch blood glucose range is generally 180-200 mg/dl. His dinner blood glucose range is generally >200 mg/dl. His bedtime blood glucose range is generally >200 mg/dl. An TYRON inhibitor/angiotensin II receptor ubaldo is being taken. Hypertension This is a chronic problem. The current episode started more than 1 year ago. The problem is controlled. Pertinent negatives include no chest pain, headaches, palpitations or shortness of breath. There are no associated agents to hypertension. Risk factors for coronary artery disease include diabetes mellitus, dyslipidemia, family history, male gender and obesity. Past treatments include TYRON inhibitors. The current treatment provides significant improvement. Depression Visit: Follow-up Initial visit: Symptoms: no chest pain, no palpitations and no shortness of breath Follow-up visit: Symptoms: decreased concentration and depressed mood Frequency: Rarely Severity: Mild Current Treatment: Non-SSRI antidepressants and SSRI's Response to treatment: Stable The following portions of the patient's history were reviewed and updated as appropriate: allergies, current medications, past family history, past medical history, past social history, past surgical history and problem list. Past Surgical History: Procedure Laterality Date CARDIAC CATHETERIZATION 05/30/2022 CORONARY ARTERY BYPASS GRAFT 06/03/2022 PARATHYROIDECTOMY / EXPLORATION OF PARATHYROIDS Right 02/20/2023 PRIAPISM SURGERY Past Medical History: Diagnosis Date Asthma Hypertension MRSA (methicillin resistant staph aureus) culture positive 2015 Priapism Shortness of breath There is no immunization history on file for this patient. REVIEW OF SYSTEMS: Review of Systems Constitutional: Negative for chills, fatigue and fever. HENT: Negative for hearing loss and trouble swallowing. Eyes: Negative for pain and visual disturbance. Respiratory: Negative for cough, chest tightness and shortness of breath. Cardiovascular: Negative for chest pain, palpitations and leg swelling. Gastrointestinal: Negative for blood in stool. Endocrine: Negative for polydipsia, polyphagia and polyuria. Genitourinary: Negative for difficulty urinating, dysuria, flank pain, hematuria, scrotal swelling and testicular pain. Musculoskeletal: Negative. Skin: Negative. Allergic/Immunologic: Negative. Neurological: Negative for seizures, syncope and headaches. Hematological: Does not bruise/bleed easily. Psychiatric/Behavioral: Negative. PHYSICAL EXAMINATION: Vitals: 06/10/24 1451 BP: 130/80 BP Site: Left Arm BP Postition: Sitting Pulse: 65 Resp: 18 Temp: 36.4 C (97.6 F) TempSrc: Oral SpO2: 97% Weight: 127.2 kg (280 lb 6.4 oz) Height: 165.1 cm (5' 5 ) Patient noted to have elevated BMI and the following intervention(s) were applied: encouragement to exercise. Physical Exam Vitals and nursing note reviewed. Constitutional: General: He is not in acute distress. Appearance: He is well-developed. HENT: Head: Normocephalic and atraumatic. Right Ear: Tympanic membrane and external ear normal. Left Ear: Tympanic membrane and external ear normal. Nose: Nose normal. Mouth/Throat: Mouth: Mucous membranes are moist. Pharynx: No oropharyngeal exudate. Eyes: General: No scleral icterus. Right eye: No discharge. Left eye: No discharge. Conjunctiva/sclera: Conjunctivae normal. Pupils: Pupils are equal, round, and reactive to light. Neck: Vascular: No JVD. Cardiovascular: Rate and Rhythm: Normal rate and regular rhythm. Heart sounds: Normal heart sounds. No murmur heard. No friction rub. No gallop. Pulmonary: Effort: Pulmonary effort is normal. No respiratory distress. Breath sounds: Normal breath sounds. Chest: Chest wall: No tenderness. Abdominal: General: Bowel sounds are normal. There is no distension. Palpations: Abdomen is soft. There is no mass. Tenderness: There is no abdominal tenderness. There is no guarding or rebound. Hernia: No hernia is present. Musculoskeletal: General: No tenderness. Normal range of motion. Cervical back: Normal range of motion and neck supple. Lymphadenopathy: Cervical: No cervical adenopathy. Skin: General: Skin is warm and dry. Capillary Refill: Capillary refill takes less than 2 seconds. Findings: No rash. Neurological: Mental Status: He is alert and oriented to person, place, and time. Deep Tendon Reflexes: Reflexes are normal and symmetric. Psychiatric: Mood and Affect: Mood normal. Behavior: Behavior normal. Thought Content: Thought content normal. Judgment: Judgment normal. ASSESSMENT/PLAN: Elias was seen today for diabetes, hypertension and depression. Diagnoses and all orders for this visit: Type 2 diabetes mellitus with microalbuminuria, without long-term current use of insulin ([facility]) Anxiety and depression - FLUoxetine (PROzac) 20 mg capsule; Take 1 capsule (20 mg total) by mouth in the morning. Type 2 diabetes mellitus with stage 3 chronic kidney disease and hypertension ([facility]) - dapagliflozin propanediol (FARXIGA) 10 mg tablet; take 1 tablet by mouth every morning Uncontrolled type 2 diabetes mellitus with hyperglycemia ([facility]) - POCT Hemoglobin A1c - dulaglutide (TRULICITY) 0.75 mg/0.5 mL pen injector; Inject 0.5 mL (0.75 mg total) under the skin every 7 days. - insulin glargine (LANTUS SOLOSTAR U-100 INSULIN) 100 unit/mL (3 mL) insulin pen; Inject 80 Units under the skin nightly. Type 2 DM Today A1c is 10%, was 8.4%. -Unable to take other oral drug classes for his DM due to stage 3 CKD. -Discontinue Victoza due to availability issues. Has not been taking for over 3 months. Previously ordered Ozempic and Mounjaro. Declined by insurance. -Increase Lantus to 80 units subcutaneous nightly -Continue Farxiga 10 mg oral daily -Start Trulicity 0.75 mg subcutaneous weekly Reminder to complete yearly eye exam Stressed improved dietary control Daily self skin foot checks Is taking statin and TYRON History of proteinuria. Has CKD stage 3b. Managed by nephrology. Is taking lisinopril and Farxiga Consider referral to endocrine if A1c remains at 10% at next visit. Anxiety and depression Stable Depression: Not at risk (02/29/2024) PHQ-2 PHQ-2 Score: 0 Continue fluoxetine 20 mg oral daily -Vraylar 1.5 mg oral daily Body mass index is 46.66 kg/m . Patient noted to have elevated BMI and the following intervention(s) were applied: Discussed current weight today. Consider healthy food choices, portion control. Avoid sugary beverages and high concentrated sweets. Routine exercise regimen encouraged. ALL QUESTIONS ANSWERED Total time spent was 30 minutes: Preparing to see the patient (e.g., review of tests) Obtaining and/or reviewing separately obtained history Performing a medically appropriate examination and/or evaluation Counseling and educating the patient/family/caregiver Ordering medications, tests, or procedures Follow-up: 3 months Type 2 DM, CKD, HTN, depression VANESSA Taylor 06/10/24 1531 documented in this encounter [facility] 04-21-2024 Miscellaneous Notes ----- Message from Joie sent at 04/21/2024 1:49 PM EST ----- Contract: 198 Elias is out of his insulin and needs a refill Contract: 198 Ran out of insulin due to dosage changed-Lantus , has been out a few days Pharmacy will not refill medication because they need an updated order for Lantus [facility] Reason for Disposition [1] Prescription refill request for ESSENTIAL medicine (i.e., likelihood of harm to patient if not taken) AND [2] triager unable to refill per department policy Protocols used: Medication Refill and Renewal Call-A-AH OC provider updated on change needed for Lantus prescription -per pharmacy still reflecting the old order of 35 units, not 70 units, informed will call pharmacy Informed OC provider will call pharmacy and update order, Verbalized understanding, PCP called for prescription refill for essential medication documented in this encounter [facility] 04-21-2024 Telephone encounter Note ----- Message from Joie sent at 04/21/2024 1:49 PM EST ----- Contract: Ron[facility] of [facility] Note Contract: 198 Ran out of insulin due to dosage changed-Lantus , has been out a few days Pharmacy will not refill medication because they need an updated order for Lantus [facility] Reason for Disposition [1] Prescription refill request for ESSENTIAL medicine (i.e., likelihood of harm to patient if not taken) AND [2] triager unable to refill per department policy Protocols used: Medication Refill and Renewal Call-A-AH [facility] 04-21-2024 Telephone encounter Note OC provider updated on change needed for Lantus prescription -per pharmacy still reflecting the old order of 35 units, not 70 units, informed will call pharmacy [facility] 04-21-2024 Telephone encounter Note Informed OC provider will call pharmacy and update order, Verbalized understanding, PCP called for prescription refill for essential medication [facility] 03-20-2024 Note History Of Present I lltim Walker is a 38 y.o. male is here to follow up regarding hypercalcemia, high parathyroid hormone levels s/p right inferior parathyroidectomy Interval history: 03/20/24 He reports that he is doing well. He reports no tremor, muscle spasm, irregular heart rhythm, constipation, or numbness/tingling sensation. He is not taking any calcium supplements at this point. He reports that he is the process of getting Mounjaro for his DM via his PCP's office. He used to be on Trulicity which is backordered. Previous history: In 09/2021 patient was hospitalized at outside facility, when he presented with hypotension, Sob and chest pain. Was found to have pericardial effusion, staph aureus pneumonia, hx of strep c sepsis, found to have multivessel punctate acute infarcts and CESAR was negative for endocarditis. Patient received 4 weeks of IV antibitoics for presumed infective endocarditis. He as found to have OZZIE and hypercalcemia, found to have elevated PTH. Evaluated for multiple myeloma and it was negative. Following with nephrology as OP. He was found ot hav elow vit d level -9,12, he was prescribed ergocalciferol 50,000 international units took it for 3 weeks and was discontinued by his corrosion technician. Calcium abnormality related symptoms and history Constitutional Symptom Yes No Comment Irritability [] [] Anxiety [x] [] Difficulty concentrating [] [] Difficulty sleeping [x] [] chronic, no recent changes Mood swings [] [] Depression [] [] Exhaustion [] [] Forgetfulness [] [] Decreased libido [] [] Low energy fatigue [x] [] Increased thirst [] [] Increased urination [] [] Increased drinking [] [] Cardiovascular Symptom Yes No Comment Racing heartbeat [] [x] Palpitation [] [x] Slow heartbeat [] [x] Fluid retention [] [x] Trouble breathing [] [x] Neuromuscular Symptom Yes No Comment Proximal muscle weakness with upper extremities [] [x] Proximal muscle weakness with lower extremities [] [x] Muscle aches/cramps [] [x] Shakes/tremors [] [x] Joint pain [] [] Decreased exercise capacity [] [] Compressive symptoms in the neck Symptom Yes No Comment A new mass [] [] Choking [] [] Trouble swallowing [] [] Change in voice [] [] Fullness [] [] Lower central neck pain [] [] Gastrointestinal Symptom Yes No Comment Nausea [] [x] Vomiting [] [x] Hyperactive bowel movement [] [x] Constipation [] [x] Others Previous fragility fracture in adult life [] [] Site(s): Height loss [] [] Kidney stone [x] [] Blood in urine [] [] Family history of calcium abnormality [] [] Who?: Family history of kidney stone [] [] Who?: Family history of fragility fractures [] [] Who?: Family history of pituitary tumor [] [] Who?: Family history of medullary thyroid carcinoma [] [] Who?: Review of Systems: Pertinent hx a noted above in HPI, comprehensive ROS is performed which is negative except that mentioned above. Past Medical History Staph pneumonia CKD stage 3 Microalbuminuria. Pericardial effusion HTN,essential Allergies Surgical History He has a past surgical history that includes MRA neck wo IV contrast (09/08/2021); MRA head wo IV contrast (09/08/2021); Coronary artery bypass graft; Renal biopsy; Cardiac catheterization; and Other surgical history. Correction of priapism Social History Prior hx of vaping. Family History DM - mother Allergies Melon, Bupropion hcl, Food allergy formula, and Tomato Medications _ reviewed medication list Vitals: 03/20/24 1056 BP: 113/83 Pulse: 63 SpO2: 94% Wt Readings from Last 5 Encounters: 03/20/24 129 kg (283 lb 9.6 oz) 09/18/23 132 kg (290 lb 8 oz) 07/04/23 132 kg (291 lb 6.4 oz) 05/31/23 135 kg (297 lb 6.4 oz) 05/17/23 134 kg (295 lb) Body mass index is 48.68 kg/m???. Physical Exam Vitals reviewed. Constitutional: General: He is not in acute distress. Appearance: Normal appearance. He is obese. He is not ill-appearing, toxic-appearing or diaphoretic. HENT: Head: Normocephalic and atraumatic. Eyes: Extraocular Movements: Extraocular movements intact. Conjunctiva/sclera: Conjunctivae normal. Cardiovascular: Rate and Rhythm: Normal rate and regular rhythm. Pulmonary: Effort: Pulmonary effort is normal. Breath sounds: Normal breath sounds. Musculoskeletal: General: Normal range of motion. Cervical back: Normal range of motion and neck supple. Skin: General: Skin is warm and dry. Neurological: General: No focal deficit present. Mental Status: He is alert. Psychiatric: Mood and Affect: Mood normal. Judgment: Judgment normal. Thyroid/neck Component Yes No Comment Enlargement [] [x] Palpable nodule(s) [] [x] Bruits [] [] Palpable enlarged lymph node [] [x] Others: [] [] Extremities Component Yes No Comment Tremor with outstretched arms [] [x] Deep tendon reflexes (DTR) [] 0 [x] 1+ [] 2+ [] 3+ [] 4+ Relaxation p (more content not included)... [facility] 02-29-2024 History of Present illness Narrative Images from the original note were not included. [address] [place] [address] SUBJECTIVE: Patient ID: Elias Walker is a 38 y.o. male. Chief Complaint Patient presents with Diabetes Been running high. 190 Presents for DM follow up States he was seen by philanthropy officer who help evaluate problems with his diet and promoted diabetic ADA meal planning. 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 He states he has been working on making better food choices while he is working. Does admit to drinking soda. Blood sugars started to trend upwards approximately 2-3 weeks ago. Average has been mid to higher 200's per day. 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 He was previously taking Trulicity which did not improve his A1c readings. Is currently taking Lantus 35 units nightly and Farxiga 10 mg oral daily. Has chronic CKD which is managed by Dr. Serrano, nephrology. The following portions of the patient's history were reviewed and updated as appropriate: allergies, current medications, past family history, past medical history, past social history, past surgical history and problem list. Past Surgical History: Procedure Laterality Date CARDIAC CATHETERIZATION 05/30/2022 CORONARY ARTERY BYPASS GRAFT 06/03/2022 PARATHYROIDECTOMY / EXPLORATION OF PARATHYROIDS Right 02/20/2023 PRIAPISM SURGERY Past Medical History: Diagnosis Date Asthma Hypertension MRSA (methicillin resistant staph aureus) culture positive 2015 Priapism Shortness of breath There is no immunization history on file for this patient. REVIEW OF SYSTEMS: Review of Systems Constitutional: Negative for chills, fatigue and fever. HENT: Negative for hearing loss and trouble swallowing. Eyes: Negative for pain and visual disturbance. Respiratory: Negative for cough, chest tightness and shortness of breath. Cardiovascular: Negative for chest pain, palpitations and leg swelling. Gastrointestinal: Negative for blood in stool. Endocrine: Negative for polydipsia, polyphagia and polyuria. Genitourinary: Negative for difficulty urinating, dysuria, flank pain, hematuria, scrotal swelling and testicular pain. Musculoskeletal: Negative. Skin: Negative. Allergic/Immunologic: Negative. Neurological: Negative for seizures, syncope and headaches. Hematological: Does not bruise/bleed easily. Psychiatric/Behavioral: Negative. PHYSICAL EXAMINATION: Vitals: 02/29/24 1533 BP: 118/62 BP Site: Left Arm BP Postition: Sitting BP CUFF SIZE: L (13-17 inches) Pulse: 76 Resp: 18 Temp: 36.4 C (97.6 F) TempSrc: Oral SpO2: 97% Weight: 128.9 kg (284 lb 3.2 oz) Height: 165.1 cm (5' 5 ) Patient noted to have elevated BMI and the following intervention(s) were applied: encouragement to exercise. Physical Exam Vitals and nursing note reviewed. Constitutional: General: He is not in acute distress. Appearance: He is well-developed. HENT: Head: Normocephalic and atraumatic. Right Ear: Tympanic membrane and external ear normal. Left Ear: Tympanic membrane and external ear normal. Nose: Nose normal. Mouth/Throat: Mouth: Mucous membranes are moist. Pharynx: No oropharyngeal exudate. Eyes: General: No scleral icterus. Right eye: No discharge. Left eye: No discharge. Conjunctiva/sclera: Conjunctivae normal. Pupils: Pupils are equal, round, and reactive to light. Neck: Vascular: No JVD. Cardiovascular: Rate and Rhythm: Normal rate and regular rhythm. Heart sounds: Normal heart sounds. No murmur heard. No friction rub. No gallop. Pulmonary: Effort: Pulmonary effort is normal. No respiratory distress. Breath sounds: Normal breath sounds. Chest: Chest wall: No tenderness. Abdominal: General: Bowel sounds are normal. There is no distension. Palpations: Abdomen is soft. There is no mass. Tenderness: There is no abdominal tenderness. There is no guarding or rebound. Hernia: No hernia is present. Musculoskeletal: General: No tenderness. Normal range of motion. Cervical back: Normal range of motion and neck supple. Lymphadenopathy: Cervical: No cervical adenopathy. Skin: General: Skin is warm and dry. Capillary Refill: Capillary refill takes less than 2 seconds. Findings: No rash. Neurological: Mental Status: He is alert and oriented to person, place, and time. Deep Tendon Reflexes: Reflexes are normal and symmetric. Psychiatric: Mood and Affect: Mood normal. Behavior: Behavior normal. Thought Content: Thought content normal. Judgment: Judgment normal. ASSESSMENT/PLAN: Elias was seen today for diabetes. Diagnoses and all orders for this visit: Type 2 diabetes mellitus with microalbuminuria, without long-term current use of insulin ([facility]) - POCT Hemoglobin A1c Uncontrolled type 2 diabetes mellitus with hyperglycemia ([facility]) - tirzepatide (MOUNJARO) 7.5 mg/0.5 mL pen injector; Inject 7.5 mg under the skin every 7 days. Type 2 diabetes mellitus with stage 3 chronic kidney disease and hypertension ([facility]) - tirzepatide (MOUNJARO) 7.5 mg/0.5 mL pen injector; Inject 7.5 mg under the skin every 7 days. Type 2 DM Today A1c 8.4%. Was 7.5% Blood sugars started to trend upwards approximately 2-3 weeks ago. Average has been mid to higher 200's per day. 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 He was previously taking -Trulicity which did not improve his A1c readings. -Unable to take other oral drug classes for his DM due to stage 3 CKD. -Discontinue Victoza due to availability issues and poor A1c control -Start Mounjaro 7.5mg weekly pending insurance approval -Increase Lantus to 50 units subcutaneous nightly -Continue Fariga 10 mg oral daily Reminder to complete yearly eye exam Daily self skin foot checks Body mass index is 47.29 kg/m . Patient noted to have elevated BMI and the following intervention(s) were applied: Discussed current weight today. Consider healthy food choices, portion control. Avoid sugary beverages and high concentrated sweets. Routine exercise regimen encouraged. ALL QUESTIONS ANSWERED Follow-up: VANESSA Taylor 02/29/24 1620 documented in this encounter [facility] 02-13-2024 History of Present illness Narrative OUTPATIENT NUTRITION CONSULTATION- ADULT Date: 02/13/24 Time in: 10:40 Time out: 11:40 Patient Elias Walker Age () 38 y.o. (1985) Sex male Accompanied by significant other Reason for Visit: Elevated blood glucose levels and CKD stage III Chief Complaint Patient presents with MNT - Individual Assessment: Height/Weight: Today's BMI Body mass index is 46.59 kg/m . BMI Category Obese class 3 (> or = 40.00) Height Height: 165.1 cm (5' 5 ) Weight Wt Readings from Last 3 Encounters: 02/13/24 127 kg (280 lb) 01/16/24 127.3 kg (280 lb 9.6 oz) 12/31/23 127.9 kg (282 lb) [place] Body Weight [place] body weight: 61.5 kg (135 lb 9.3 oz) Adjusted ideal body weight: 87.7 kg (193 lb 5.6 oz) Lab Results: POCT A1c Lab Results Component Value Date ZIAGZWY6F 7.5 (A) 11/23/2023 A1c Lab Results Component Value Date HGBA1C 9.6 (H) 06/08/2022 C-Peptide No results found for: CPEPTIDE Kidney Alb/creat ratio Date/Time Value Ref Range Status 03/29/2022 04:06 PM 737.8 (H) 0.0 - 30.0 mg/g creat Final Lab Results Component Value Date GLU 181 (H) 12/31/2023 K 4.9 12/31/2023 BUN 36 (H) 12/31/2023 CREATININE 2.18 (H) 12/31/2023 Lipid Panel Lab Results Component Value Date CHOL 166 11/23/2023 Lab Results Component Value Date HDL 31 (L) 11/23/2023 Lab Results Component Value Date LDLCALC 89 11/23/2023 Lab Results Component Value Date TRIG 232 (H) 11/23/2023 No results found for: CHOLHDL Hgb Hemoglobin Date/Time Value Ref Range Status 12/31/2023 01:25 PM 15.5 13.0 - 17.0 g/dL Final Psychosocial / Economic Comments: Pt reports he has a Dex Com meter and tries to track his blood glucose levels. They continue to run high in the mornings around 186. 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 He states he never eats an am breakfast, picks around for his lunch meal, and dinner maybe out at [place] restaurants or food at home. He does consume a lot of zero pepsi for a beverage. Admits to having a big sweet tooth for desserts. His significant other is worried about controlling the K+ in his diet due to his CKD stage III. Nutrition/Diet Counseling: Prior Nutrition Counseling Prior nutrition counseling was not provided. Estimated Energy Needs 1800 kcals daily Diet History Revealed Energy Intake: Excessive Total Fat Intake: Excessive Sodium Intake: Excessive Fiber Intake: Inadequate Carbohydrate Intake: Excessive Protein Intake: Excessive Food Recall Pertinent Comments: Reviewed also with patient foods increased in K+ content and encouraged client not to use salt at the table. ( Try Mrs. Estrada instead) Diagnosis: Excessive carbohydrate intake, Overweight/obesity, and Hsyn-iqz-aurloebhp-related knowledge deficit Related to Ghcn-nzx-ahymhadhz-related knowledge deficit As evidenced by Estimated energy intake from diet more than estimated energy needs and Hyperglycemia Intervention: Nutrition Education: Patient was instructed on carbohydrate counting, healthy food selections, sources of fat, and sources of fiber, menu planning, and label reading. Carbohydrate distribution provided to patient (if applicable): Breakfast Snack Lunch Snack Dinner Snack Carbohydrate 75 75 75 Total Kcal Recommended: 1800 (weight loss) Monitoring & Evaluation: Goals Eat 3 meals per day, Use resources discussed/given to count carbs, Avoid sugar sweetened beverages, Exercise for 150 minutes per week, Monitors portions, and Label reading Follow-Up Plan No return appointment scheduled. Department phone number provided for questions after session. Roslyn Blancas RD., LD. [facility] Diabetes and Nutrition Education documented in this encounter [facility] 01-16-2024 Miscellaneous Notes We received a referral for education for Elias Walker 1985. However per CMS Guidelines the services requested need to be ordered by an MD or DO. Please see pended order and have MD/DO sign if agreeable. Thank you [facility] Diabetes and Nutrition Education I printed the requisition. Dr. Campos signed the order. What is the number to fax? [phone]. Thank you. We received your fax, but there are no services requested (MNT or DSMT), and there is no signature. I pended an order to the original message. It might be easier to have an MD/DO just sign it in EPIC. Spoke with Vivien at MD's office. She requested that I fax a blank referral form to her so she can have Dr. Campos fill out and sign. Form faxed. Order faxed by documented in this encounter [facility] 01-16-2024 Telephone encounter Note We received a referral for education for Elias Walker 1985. However per [facility] Guidelines the services requested need to be ordered by an MD or DO. Please see pended order and have MD/DO sign if agreeable. Thank you [facility] Diabetes and Nutrition Education [facility] 01-16-2024 Telephone encounter Note I printed the requisition. Dr. Campos signed the order. What is the number to fax? [facility] 01-16-2024 Telephone encounter Note [phone]. Thank you. [facility] 01-16-2024 Telephone encounter Note We received your fax, but there are no services requested (MNT or DSMT), and there is no signature. I pended an order to the original message. It might be easier to have an MD/DO just sign it in EPIC. [facility] 01-16-2024 Telephone encounter Note Spoke with Vivien at 's office. She requested that I fax a blank referral form to her so she can have Dr. Campos fill out and sign. Form faxed. [facility] 01-16-2024 Telephone encounter Note Order faxed by [facility] 01-16-2024 History of Present illness Narrative Images from the original note were not included. [address] [place] [address] SUBJECTIVE: Patient ID: Elias Walker is a 38 y.o. male. Chief Complaint Patient presents with Follow-up Patient states his blood sugars have been elevated over the past month. He did go to ER on December 31, 2023 for glucose readings over 400. States he was given additional insulin. Currently his blood sugar is 198 fasting per DEXCOM monitor. Average A1c is 8.9% over past 14 days. Denies any recent diet changes. Relates he is no longer drinking soda. Denies any symptoms such as increased thirst, increased urine output, nausea, or vomiting. Follow-up Pertinent negatives include no chest pain, chills, coughing, fatigue, fever or headaches. The following portions of the patient's history were reviewed and updated as appropriate: allergies, current medications, past family history, past medical history, past social history, past surgical history and problem list. Past Surgical History: Procedure Laterality Date CARDIAC CATHETERIZATION 05/30/2022 CORONARY ARTERY BYPASS GRAFT 06/03/2022 PARATHYROIDECTOMY / EXPLORATION OF PARATHYROIDS Right 02/20/2023 PRIAPISM SURGERY Past Medical History: Diagnosis Date Asthma Hypertension MRSA (methicillin resistant staph aureus) culture positive 2016 Priapism Shortness of breath There is no immunization history on file for this patient. REVIEW OF SYSTEMS: Review of Systems Constitutional: Negative for chills, fatigue and fever. HENT: Negative for hearing loss and trouble swallowing. Eyes: Negative for pain and visual disturbance. Respiratory: Negative for cough, chest tightness and shortness of breath. Cardiovascular: Negative for chest pain, palpitations and leg swelling. Gastrointestinal: Negative for blood in stool. Endocrine: Negative for polydipsia, polyphagia and polyuria. Genitourinary: Negative for difficulty urinating, dysuria, flank pain, hematuria, scrotal swelling and testicular pain. Musculoskeletal: Negative. Skin: Negative. Allergic/Immunologic: Negative. Neurological: Negative for seizures, syncope and headaches. Hematological: Does not bruise/bleed easily. Psychiatric/Behavioral: Negative. PHYSICAL EXAMINATION: Vitals: 01/16/24 0848 BP: 142/82 BP Site: Left Arm BP Postition: Sitting BP CUFF SIZE: L (13-17 inches) Pulse: 81 Temp: 36.4 C (97.5 F) TempSrc: Oral SpO2: 97% Weight: 127.3 kg (280 lb 9.6 oz) Patient noted to have elevated BMI and the following intervention(s) were applied: encouragement to exercise. Physical Exam Vitals and nursing note reviewed. Constitutional: General: He is not in acute distress. Appearance: He is well-developed. HENT: Head: Normocephalic and atraumatic. Right Ear: Tympanic membrane and external ear normal. Left Ear: Tympanic membrane and external ear normal. Nose: Nose normal. Mouth/Throat: Mouth: Mucous membranes are moist. Pharynx: No oropharyngeal exudate. Eyes: General: No scleral icterus. Right eye: No discharge. Left eye: No discharge. Conjunctiva/sclera: Conjunctivae normal. Pupils: Pupils are equal, round, and reactive to light. Neck: Vascular: No JVD. Cardiovascular: Rate and Rhythm: Normal rate and regular rhythm. Heart sounds: Normal heart sounds. No murmur heard. No friction rub. No gallop. Pulmonary: Effort: Pulmonary effort is normal. No respiratory distress. Breath sounds: Normal breath sounds. Chest: Chest wall: No tenderness. Abdominal: General: Bowel sounds are normal. There is no distension. Palpations: Abdomen is soft. There is no mass. Tenderness: There is no abdominal tenderness. There is no guarding or rebound. Hernia: No hernia is present. Musculoskeletal: General: No tenderness. Normal range of motion. Cervical back: Normal range of motion and neck supple. Lymphadenopathy: Cervical: No cervical adenopathy. Skin: General: Skin is warm and dry. Capillary Refill: Capillary refill takes less than 2 seconds. Findings: No rash. Neurological: Mental Status: He is alert and oriented to person, place, and time. Deep Tendon Reflexes: Reflexes are normal and symmetric. Psychiatric: Mood and Affect: Mood normal. Behavior: Behavior normal. Thought Content: Thought content normal. Judgment: Judgment normal. ASSESSMENT/PLAN: Elias was seen today for follow-up. Diagnoses and all orders for this visit: Type 2 diabetes mellitus with microalbuminuria, without long-term current use of insulin ([facility]) - insulin detemir U-100 (LEVEMIR FLEXPEN) 100 unit/mL (3 mL) insulin pen; Inject 35 Units under the skin nightly. - Ambulatory referral to Individual Nutrition Education; Future Currently his blood sugar is 198 fasting per DEXCOM monitor. Average A1c is 8.9% over past 14 days. Denies any recent diet changes. Relates he is no longer drinking soda. Denies any symptoms such as increased thirst, increased urine output, nausea, or vomiting. Continue Victoza 1.8 mg daily and Farxiga 10 mg oral daily Change Levemir to 35 units nightly Referral to diabetic nutritional education Encourage calling office if blood sugars remain elevated above 250 consistently. Body mass index is 46.69 kg/m . Patient noted to have elevated BMI and the following intervention(s) were applied: Discussed current weight today. Consider healthy food choices, portion control. Avoid sugary beverages and high concentrated sweets. Routine exercise regimen encouraged. ALL QUESTIONS ANSWERED Total time spent was 25 minutes: Preparing to see the patient (e.g., review of tests) Obtaining and/or reviewing separately obtained history Performing a medically appropriate examination and/or evaluation Counseling and educating the patient/family/caregiver Ordering medications, tests, or procedures Follow-up: Next scheduled February VANESSA Taylor 01/16/24 0917 documented in this encounter [facility] [employer] 12-31-2023 Miscellaneous Notes ----- Message from Joie sent at 12/31/2023 11:47 AM EDT ----- Contract: 198 Juan sugar is 372 and last night it was over 400 he feels fine other then sleeping OC198 Reports BG is elevated. Began yesterday afternoon. Current BG is 373. Does not check ketones. Dx with Diabetes 2 years ago.Only takes Levimir, no coverage. Not ill, no fever. Eating has not changed. No vomiting, does report his mouth feels very dry. Advised to go to ER for further evaluation/treatment Reason for Disposition [1] Vomiting AND [2] signs of dehydration (e.g., very dry mouth, lightheaded, dark urine) Protocols used: Diabetes - High Blood Sugar-A-AH documented in this encounter [facility] 12-31-2023 Telephone encounter Note ----- Message from Joie sent at 12/31/2023 11:47 AM EDT ----- Contract: 198 Juan sugar is 372 and last night it was over 400 he feels fine other then sleeping [facility] 12-31-2023 Telephone encounter Note OC198 Reports BG is elevated. Began yesterday afternoon. Current BG is 373. Does not check ketones. Dx with Diabetes 2 years ago.Only takes Levimir, no coverage. Not ill, no fever. Eating has not changed. No vomiting, does report his mouth feels very dry. Advised to go to ER for further evaluation/treatment Reason for Disposition [1] Vomiting AND [2] signs of dehydration (e.g., very dry mouth, lightheaded, dark urine) Protocols used: Diabetes - High Blood Sugar-A-AH [facility] 11-29-2023 Miscellaneous Notes Pt called to ask if the wording can be changed on the prescription so that he can get them refilled sooner. Current prescription states daily. The pharmacy currently can't refill until 12/14/2023 due to how the prescription is worded. Pt states that he is using 2 daily instead of 1. This is for pt's pen needle, diabetic (unifine pentips) 31 gauge x 1/4'' needle. Done Relayed to pt. Verbalizes understanding. documented in this encounter [facility] 11-29-2023 Telephone encounter Note Pt called to ask if the wording can be changed on the prescription so that he can get them refilled sooner. Current prescription states daily. The pharmacy currently can't refill until 12/14/2023 due to how the prescription is worded. Pt states that he is using 2 daily instead of 1. This is for pt's pen needle, diabetic (unifine pentips) 31 gauge x 1/4'' needle. [facility] 11-29-2023 Telephone encounter Note Done [facility] 11-29-2023 Telephone encounter Note Relayed to pt. Verbalizes understanding. [facility] 11-23-2023 History of Present illness Narrative Images from the original note were not included. [address] [place] [facility] [id number] SUBJECTIVE: Patient ID: Elias Walker is a 38 y.o. male. Chief Complaint Patient presents with Diabetes 150 accucheck Hypertension Presents for routine visit today. Overall, he states his moods have been stable. Was changed to Vraylar from Abilify. States he has noticed the difference, less sad days. Is tolerating daily Victoza. Glucose monitoring system is DEXCOM 7. Has noticed change in blood sugars. Had two low blood sugar alerts during the night. 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 Has lost 8 pounds since last visit. Diabetes He presents for his initial diabetic visit. He has type 2 diabetes mellitus. His disease course has been improving. Pertinent negatives for hypoglycemia include no headaches, nervousness/anxiousness or seizures. Associated symptoms include fatigue and polyuria. Pertinent negatives for diabetes include no chest pain, no polydipsia and no polyphagia. There are no hypoglycemic complications. Symptoms are improving. Diabetic complications include a CVA, heart disease, impotence and nephropathy. Risk factors for coronary artery disease include dyslipidemia, diabetes mellitus, hypertension, male sex, obesity and sedentary lifestyle. Current diabetic treatment includes diet Farxiga, Victoza, and Lantus. He is compliant with treatment all of the time. His weight is decreasing steadily. He is following a generally healthy, diabetic and low fat/cholesterol diet. Meal planning includes avoidance of concentrated sweets and carbohydrate counting. He rarely participates in exercise. Is not checking his blood sugars. An TYRON inhibitor/angiotensin II receptor ubaldo is being taken. He does not see a voice intercept technician. Eye exam is not current. Hypertension This is a chronic problem. The current episode started more than 1 year ago. The problem has been gradually improving since onset. Associated symptoms include peripheral edema. Pertinent negatives include no chest pain, headaches, palpitations or shortness of breath. Risk factors for coronary artery disease include dyslipidemia, diabetes mellitus, male gender, obesity and sedentary lifestyle. Past treatments include TYRON inhibitors, beta blockers and calcium channel blockers. The current treatment provides significant improvement. Hypertensive end-organ damage includes kidney disease, CAD/TN, CVA and heart failure. Identifiable causes of hypertension include chronic renal disease and hyperparathyroidism. Hyperlipidemia This is a chronic problem. The current episode started more than 1 year ago. Recent lipid tests were reviewed and are variable. Exacerbating diseases include chronic renal disease, diabetes and obesity. There are no known factors aggravating his hyperlipidemia. Pertinent negatives include no chest pain, myalgias or shortness of breath. Current antihyperlipidemic treatment includes statins. The current treatment provides moderate improvement of lipids. There are no compliance problems. Risk factors for coronary artery disease include diabetes mellitus, dyslipidemia, hypertension, male sex, obesity and a sedentary lifestyle. Depression Visit: Follow-up Follow-up visit: Symptoms: decreased concentration, depressed mood and nervous/anxious Frequency: Rarely Severity: Mild Current Treatment: SSRI's and non-SSRI antidepressants Response to treatment: Stable The following portions of the patient's history were reviewed and updated as appropriate: allergies, current medications, past family history, past medical history, past social history, past surgical history and problem list. Past Surgical History: Procedure Laterality Date CARDIAC CATHETERIZATION 05/30/2022 CORONARY ARTERY BYPASS GRAFT 06/03/2022 PARATHYROIDECTOMY / EXPLORATION OF PARATHYROIDS Right 02/20/2023 PRIAPISM SURGERY Past Medical History: Diagnosis Date Asthma Hypertension MRSA (methicillin resistant staph aureus) culture positive 2015 Priapism Shortness of breath There is no immunization history on file for this patient. REVIEW OF SYSTEMS: Review of Systems Constitutional: Negative for chills and fever. HENT: Negative for hearing loss and trouble swallowing. Eyes: Negative for pain and visual disturbance. Respiratory: Negative for cough and chest tightness. Cardiovascular: Negative for leg swelling. Gastrointestinal: Negative for blood in stool. Genitourinary: Negative for difficulty urinating, dysuria, flank pain, hematuria, scrotal swelling and testicular pain. Musculoskeletal: Negative. Skin: Negative. Allergic/Immunologic: Negative. Neurological: Negative for syncope. Hematological: Does not bruise/bleed easily. Psychiatric/Behavioral: Negative. PHYSICAL EXAMINATION: Vitals: 11/23/23 1524 BP: 130/72 BP Site: Right Arm BP Postition: Sitting Pulse: 89 Resp: 20 Temp: 36.9 C (98.5 F) TempSrc: Oral SpO2: 95% Weight: 128.2 kg (282 lb 9.6 oz) Height: 165.1 cm (5' 5 ) Patient noted to have elevated BMI and the following intervention(s) were applied: encouragement to exercise. Physical Exam Vitals and nursing note reviewed. Constitutional: General: He is not in acute distress. Appearance: He is well-developed. HENT: Head: Normocephalic and atraumatic. Right Ear: Tympanic membrane and external ear normal. Left Ear: Tympanic membrane and external ear normal. Nose: Nose normal. Mouth/Throat: Mouth: Mucous membranes are moist. Pharynx: No oropharyngeal exudate. Eyes: General: No scleral icterus. Right eye: No discharge. Left eye: No discharge. Conjunctiva/sclera: Conjunctivae normal. Pupils: Pupils are equal, round, and reactive to light. Neck: Vascular: No JVD. Cardiovascular: Rate and Rhythm: Normal rate and regular rhythm. Heart sounds: Normal heart sounds. No murmur heard. No friction rub. No gallop. Pulmonary: Effort: Pulmonary effort is normal. No respiratory distress. Breath sounds: Normal breath sounds. Chest: Chest wall: No tenderness. Abdominal: General: Bowel sounds are normal. There is no distension. Palpations: Abdomen is soft. There is no mass. Tenderness: There is no abdominal tenderness. There is no guarding or rebound. Hernia: No hernia is present. Musculoskeletal: General: No tenderness. Normal range of motion. Cervical back: Normal range of motion and neck supple. Lymphadenopathy: Cervical: No cervical adenopathy. Skin: General: Skin is warm and dry. Capillary Refill: Capillary refill takes less than 2 seconds. Findings: No rash. Neurological: Mental Status: He is alert and oriented to person, place, and time. Deep Tendon Reflexes: Reflexes are normal and symmetric. Psychiatric: Mood and Affect: Mood normal. Behavior: Behavior normal. Thought Content: Thought content normal. Judgment: Judgment normal. Diabetic foot exam: Visual exam was normal without lesions. Left: Pulses Dorsalis Pedis: present Vibratory sensation normal Filament test present Right: Pulses Dorsalis Pedis: present Vibratory sensation normal Filament test present ASSESSMENT/PLAN: Elias was seen today for diabetes and hypertension. Diagnoses and all orders for this visit: Type 2 diabetes mellitus with microalbuminuria, without long-term current use of insulin ([facility]) - POCT Hemoglobin A1c - liraglutide (VICTOZA 3-ALICE) 0.6 mg/0.1 mL (18 mg/3 mL) pen injector; Week one, administer 0.6 mg daily. Week two, administer 1.2 mg daily, then on week three, increase to 1.8 mg daily. - insulin detemir U-100 (LEVEMIR FLEXPEN) 100 unit/mL (3 mL) insulin pen; Inject 20 Units under the skin nightly. - Lipid panel; Future Moderate episode of recurrent major depressive disorder ([facility]) - cariprazine (VRAYLAR) 1.5 mg capsule; Take 1 capsule (1.5 mg total) by mouth in the morning. Mixed hyperlipidemia - atorvastatin (LIPITOR) 80 mg tablet; Take 1 tablet (80 mg total) by mouth nightly. Seasonal allergic rhinitis due to pollen - cetirizine (ZyrTEC) 10 mg tablet; Take 1 tablet (10 mg total) by mouth in the morning. Type 2 diabetes mellitus with stage 3 chronic kidney disease and hypertension ([facility]) - dapagliflozin propanediol (FARXIGA) 10 mg tablet; take 1 tablet by mouth every morning Anxiety and depression - FLUoxetine (PROzac) 20 mg capsule; Take 1 capsule (20 mg total) by mouth in the morning. Comprehensive diabetic foot examination, type 2 DM, encounter for ([facility]) Other orders - lisinopriL (PRINIVIL,ZESTRIL) 5 mg tablet; Take 1 tablet (5 mg total) by mouth in the morning. A1c 7.5%, was 8.2% Continue Farxiga and Victoza 1.8 mg daily Levemir to 20 units nightly Discussion about ADA diet and blood glucose monitoring compliance. Encourage routine home blood sugar monitoring, diet modification, and exercise regimen. Daily self skin foot checks Yearly eye exam reminder Is taking statin and TYRON DM foot exam normal HTN Controlled Continue metoprolol tartrate Lisinopril 5 mg oral daily Metoprolol tartrate 25 mg oral twice daily Depression and anxiety Depression: Not at risk (11/23/2023) PHQ-2 PHQ-2 Score: 0 Stable. Continue fluoxetine 20 mg oral daily Vraylar 1.5 mg Mixed hyperlipidemia Continue atorvastatin 80 mg oral daily Lipid panel drawn today CKD stage 3b Managed by nephrology Creatinine 2.0, GFR 43 Normal PTH, vitamin D Component Ref Range & Units 09/05/23 1308 Total Protein, Urine mg/dL 57 Comment: No normal range established. Creatinine, Ur 39.0 - 259.0 mg/dL 53.3 Urine Total Protein Creatinine Ratio 0.00 - 0.20 Body mass index is 47.03 kg/m . Patient noted to have elevated BMI and the following intervention(s) were applied: Discussed current weight today. Consider healthy food choices, portion control. Avoid sugary beverages and high concentrated sweets. Routine exercise regimen encouraged. ALL QUESTIONS ANSWERED Total time spent was 30 minutes: Preparing to see the patient (e.g., review of tests) Obtaining and/or reviewing separately obtained history Performing a medically appropriate examination and/or evaluation Counseling and educating the patient/family/caregiver Ordering medications, tests, or procedures Follow-up: 3 months DM HTN depression VANESSA Taylor 11/23/23 1610 documented in this encounter [facility] 10-04-2023 History of Present illness Narrative CGM Application Instructed patient and his girlfriend, Nicolle on how to apply the Dexcom 7. Nicolle states that she understands and I have instructed them if they need to come back they can for his next application. VANESSA Taylor 10/04/23 1719 documented in this encounter [facility] 10-01-2023 Miscellaneous Notes refill documented in this encounter [facility] 10-01-2023 Telephone encounter Note refill [facility] 09-20-2023 History of Present illness Narrative Images from the original note were not included. [place] [id number] SUBJECTIVE: Patient ID: Elias Walker is a 38 y.o. male. Chief Complaint Patient presents with lump under right arm Presents with mild erythema and what he describes as a lump under right axilla. Onset was this past week. No alleviating methods tried. The following portions of the patient's history were reviewed and updated as appropriate: allergies, current medications, past family history, past medical history, past social history, past surgical history and problem list. Past Surgical History: Procedure Laterality Date CARDIAC CATHETERIZATION 05/30/2022 CORONARY ARTERY BYPASS GRAFT 06/03/2022 PARATHYROIDECTOMY / EXPLORATION OF PARATHYROIDS Right 02/20/2023 PRIAPISM SURGERY Past Medical History: Diagnosis Date Asthma Hypertension MRSA (methicillin resistant staph aureus) culture positive 2016 Priapism Shortness of breath There is no immunization history on file for this patient. REVIEW OF SYSTEMS: Review of Systems Constitutional: Negative for chills, fatigue and fever. HENT: Negative for hearing loss and trouble swallowing. Eyes: Negative for pain and visual disturbance. Respiratory: Negative for cough, chest tightness and shortness of breath. Cardiovascular: Negative for chest pain, palpitations and leg swelling. Gastrointestinal: Negative for blood in stool. Endocrine: Negative for polydipsia, polyphagia and polyuria. Genitourinary: Negative for difficulty urinating, dysuria, flank pain, hematuria, scrotal swelling and testicular pain. Musculoskeletal: Negative. Skin: Negative. Ingrown hair right axilla Allergic/Immunologic: Negative. Neurological: Negative for seizures, syncope and headaches. Hematological: Does not bruise/bleed easily. Psychiatric/Behavioral: Negative. PHYSICAL EXAMINATION: Vitals: 09/20/23 1504 BP: 90/70 BP Site: Left Arm BP Postition: Sitting Pulse: 80 Resp: 18 Temp: 36.8 C (98.2 F) TempSrc: Oral SpO2: 94% Weight: 131.6 kg (290 lb 1.6 oz) Height: 165.1 cm (5' 5 ) Patient noted to have elevated BMI and the following intervention(s) were applied: encouragement to exercise. Physical Exam Vitals and nursing note reviewed. Constitutional: General: He is not in acute distress. Appearance: He is well-developed. HENT: Head: Normocephalic and atraumatic. Right Ear: Tympanic membrane and external ear normal. Left Ear: Tympanic membrane and external ear normal. Nose: Nose normal. Mouth/Throat: Mouth: Mucous membranes are moist. Pharynx: No oropharyngeal exudate. Eyes: General: No scleral icterus. Right eye: No discharge. Left eye: No discharge. Conjunctiva/sclera: Conjunctivae normal. Pupils: Pupils are equal, round, and reactive to light. Neck: Vascular: No JVD. Cardiovascular: Rate and Rhythm: Normal rate and regular rhythm. Heart sounds: Normal heart sounds. No murmur heard. No friction rub. No gallop. Pulmonary: Effort: Pulmonary effort is normal. No respiratory distress. Breath sounds: Normal breath sounds. Chest: Chest wall: No tenderness. Abdominal: General: Bowel sounds are normal. There is no distension. Palpations: Abdomen is soft. There is no mass. Tenderness: There is no abdominal tenderness. There is no guarding or rebound. Hernia: No hernia is present. Musculoskeletal: General: No tenderness. Normal range of motion. Cervical back: Normal range of motion and neck supple. Lymphadenopathy: Cervical: No cervical adenopathy. Skin: General: Skin is warm and dry. Capillary Refill: Capillary refill takes less than 2 seconds. Findings: No rash. Comments: Mild erythema under right axilla, ingrown hair. There is no fluctuation. Neurological: Mental Status: He is alert and oriented to person, place, and time. Deep Tendon Reflexes: Reflexes are normal and symmetric. Psychiatric: Mood and Affect: Mood normal. Behavior: Behavior normal. Thought Content: Thought content normal. Judgment: Judgment normal. ASSESSMENT/PLAN: Elias was seen today for lump under right arm. Diagnoses and all orders for this visit: Folliculitis - CEPHalexin (KEFLEX) 500 mg capsule; Take 1 capsule (500 mg total) by mouth in the morning and 1 capsule (500 mg total) before bedtime. Do all this for 10 days. Keep area clean and dry. May apply moist warm compress to area PRN for comfort. Start cephalexin as directed. Body mass index is 48.28 kg/m . Patient noted to have elevated BMI and the following intervention(s) were applied: Discussed current weight today. Consider healthy food choices, portion control. Avoid sugary beverages and high concentrated sweets. Routine exercise regimen encouraged. ALL QUESTIONS ANSWERED Total time spent was 25 minutes: Preparing to see the patient (e.g., review of tests) Obtaining and/or reviewing separately obtained history Performing a medically appropriate examination and/or evaluation Counseling and educating the patient/family/caregiver Ordering medications, tests, or procedures Follow-up: Next scheduled VANESSA Taylor 09/25/23 1012 documented in this encounter [facility] 07-25-2023 Miscellaneous Notes Called to reschedule 10/17 appointment documented in this encounter [facility] 07-25-2023 Telephone encounter Note Called to reschedule 10/17 appointment [facility] 07-18-2023 History of Present illness Narrative Images from the original note were not included. [address] [facility] [id number] SUBJECTIVE: Patient ID: Elias Walker is a 38 y.o. male. Chief Complaint Patient presents with Diabetes Hypertension Presents for DM follow up States he has not been taking his Trulicity for several weeks due to shortage of availability. Blood sugars have not been regular. Sometimes is a low as 60 (only occurred twice) and up to 400. Admits he is not following ADA diet and is drinking Mountain Dew and sweet teas. Is currently using Dexcom 7 monitoring device. Doing well with this. Diabetes He presents for his initial diabetic visit. He has type 2 diabetes mellitus. His disease course has been improving. Pertinent negatives for hypoglycemia include no headaches, nervousness/anxiousness or seizures. Associated symptoms include fatigue and polyuria. Pertinent negatives for diabetes include no chest pain, no polydipsia and no polyphagia. There are no hypoglycemic complications. Symptoms are improving. Diabetic complications include a CVA, heart disease, impotence and nephropathy. Risk factors for coronary artery disease include dyslipidemia, diabetes mellitus, hypertension, male sex, obesity and sedentary lifestyle. Current diabetic treatment includes diet (Will initiate Farxiga and Trulicity. He is compliant with treatment all of the time. His weight is decreasing steadily. He is following a generally healthy, diabetic and low fat/cholesterol diet. Meal planning includes avoidance of concentrated sweets and carbohydrate counting. He rarely participates in exercise. Is not checking his blood sugars. An TYRON inhibitor/angiotensin II receptor ubaldo is being taken. He does not see a voice intercept technician. Eye exam is not current. Hypertension This is a chronic problem. The current episode started more than 1 year ago. The problem has been gradually improving since onset. Associated symptoms include peripheral edema. Pertinent negatives include no chest pain, headaches, palpitations or shortness of breath. Risk factors for coronary artery disease include dyslipidemia, diabetes mellitus, male gender, obesity and sedentary lifestyle. Past treatments include TYRON inhibitors, beta blockers and calcium channel blockers. The current treatment provides significant improvement. Hypertensive end-organ damage includes kidney disease, CAD/TN, CVA and heart failure. Identifiable causes of hypertension include chronic renal disease and hyperparathyroidism. Hyperlipidemia This is a chronic problem. The current episode started more than 1 year ago. Recent lipid tests were reviewed and are variable. Exacerbating diseases include chronic renal disease, diabetes and obesity. There are no known factors aggravating his hyperlipidemia. Pertinent negatives include no chest pain, myalgias or shortness of breath. Current antihyperlipidemic treatment includes statins. The current treatment provides moderate improvement of lipids. There are no compliance problems. Risk factors for coronary artery disease include diabetes mellitus, dyslipidemia, hypertension, male sex, obesity and a sedentary lifestyle. The following portions of the patient's history were reviewed and updated as appropriate: allergies, current medications, past family history, past medical history, past social history, past surgical history and problem list. Past Surgical History: Procedure Laterality Date CARDIAC CATHETERIZATION 05/30/2022 CORONARY ARTERY BYPASS GRAFT 06/03/2022 PARATHYROIDECTOMY / EXPLORATION OF PARATHYROIDS Right 02/20/2023 PRIAPISM SURGERY Past Medical History: Diagnosis Date Asthma Hypertension MRSA (methicillin resistant staph aureus) culture positive 2015 Priapism Shortness of breath There is no immunization history on file for this patient. REVIEW OF SYSTEMS: Review of Systems Constitutional: Positive for fatigue. Negative for chills and fever. HENT: Negative for hearing loss and trouble swallowing. Eyes: Negative for pain and visual disturbance. Respiratory: Negative for cough and chest tightness. Cardiovascular: Negative for leg swelling. Gastrointestinal: Negative for blood in stool. Endocrine: Negative for polyuria. Genitourinary: Negative for difficulty urinating, dysuria, flank pain, hematuria, scrotal swelling and testicular pain. Musculoskeletal: Negative. Skin: Negative. Allergic/Immunologic: Negative. Neurological: Negative for syncope. Hematological: Does not bruise/bleed easily. Psychiatric/Behavioral: Negative. PHYSICAL EXAMINATION: Vitals: 07/18/23 1034 BP: 120/80 BP Site: Left Arm BP Postition: Sitting Pulse: 70 Resp: 18 Temp: 36.7 C (98.1 F) TempSrc: Oral SpO2: 95% Weight: 132.8 kg (292 lb 12.8 oz) Height: 165.1 cm (5' 5 ) Patient noted to have elevated BMI and the following intervention(s) were applied: encouragement to exercise. Physical Exam Vitals and nursing note reviewed. Constitutional: General: He is not in acute distress. Appearance: He is well-developed. HENT: Head: Normocephalic and atraumatic. Right Ear: Tympanic membrane and external ear normal. Left Ear: Tympanic membrane and external ear normal. Nose: Nose normal. Mouth/Throat: Mouth: Mucous membranes are moist. Pharynx: No oropharyngeal exudate. Eyes: General: No scleral icterus. Right eye: No discharge. Left eye: No discharge. Conjunctiva/sclera: Conjunctivae normal. Pupils: Pupils are equal, round, and reactive to light. Neck: Vascular: No JVD. Cardiovascular: Rate and Rhythm: Normal rate and regular rhythm. Heart sounds: Normal heart sounds. No murmur heard. No friction rub. No gallop. Pulmonary: Effort: Pulmonary effort is normal. No respiratory distress. Breath sounds: Normal breath sounds. Chest: Chest wall: No tenderness. Abdominal: General: Bowel sounds are normal. There is no distension. Palpations: Abdomen is soft. There is no mass. Tenderness: There is no abdominal tenderness. There is no guarding or rebound. Hernia: No hernia is present. Musculoskeletal: General: No tenderness. Normal range of motion. Cervical back: Normal range of motion and neck supple. Lymphadenopathy: Cervical: No cervical adenopathy. Skin: General: Skin is warm and dry. Capillary Refill: Capillary refill takes less than 2 seconds. Findings: No rash. Neurological: Mental Status: He is alert and oriented to person, place, and time. Deep Tendon Reflexes: Reflexes are normal and symmetric. Psychiatric: Mood and Affect: Mood normal. Behavior: Behavior normal. Thought Content: Thought content normal. Judgment: Judgment normal. ASSESSMENT/PLAN: Elias was seen today for diabetes and hypertension. Diagnoses and all orders for this visit: Type 2 diabetes mellitus with microalbuminuria, without long-term current use of insulin ([facility]) - POCT Hemoglobin A1c - semaglutide (OZEMPIC) 0.25 mg or 0.5 mg(2 mg/1.5 mL) pen injector; Inject 0.5 mg under the skin every 7 days. - insulin detemir U-100 (LEVEMIR FLEXPEN) 100 unit/mL (3 mL) insulin pen; Inject 20 Units under the skin nightly. Primary hypertension Current moderate episode of major depressive disorder without prior episode ([facility]) Mixed hyperlipidemia A1c 8.2%, was 7.3 Discontinue Trulicity due to national shortage concerns Start Ozempic 0.50 mg weekly Continue Farxiga Increase Levemir to 20 units nightly Discussion about ADA diet and blood glucose monitoring compliance. Encourage routine home blood sugar monitoring, diet modification, and exercise regimen. Daily self skin foot checks Yearly eye exam reminder HTN Controlled Continue metoprolol tartrate Lisinopril 5 mg oral daily Metoprolol tartrate 25 mg oral twice daily Depression and anxiety Depression: Not at risk (07/18/2023) PHQ-2 PHQ-2 Score: 0 Stable. Continue fluoxetine 20 mg oral daily Vraylar 1.5 mg Mixed hyperlipidemia Continue atorvastatin 80 mg oral daily ALL QUESTIONS ANSWERED Total time spent was 30 minutes: Preparing to see the patient (e.g., review of tests) Obtaining and/or reviewing separately obtained history Performing a medically appropriate examination and/or evaluation Counseling and educating the patient/family/caregiver Ordering medications, tests, or procedures Follow-up: 3 months DM HTN VANESSA Taylor 07/18/23 1214 [id number] History of Present illness Narrative Pt came in to be observed as to how to put Dexcom patch on. Significant other was taught also and it was uploaded the day of visit. documented in this encounter [facility] 06-14-2023 History of Present illness Narrative This patient was in today for application of his Dexcom and instructions on apply them at home. Nicolle, his girl friend, was here with him so she can administer this at home. VANESSA Taylor 06/19/23 1745 documented in this encounter [facility] 05-30-2023 Miscellaneous Notes Pt's girlfriend called wondering how long it was going to take to get his dexcom in or if its the insurance holding it up ? Vivien- do you know any information in regards to this? I sent an email to Joe at [employer] to find out what is going on. Thank you ladies I called April and she did not get the fax. I just sent the fax to her again Maite called back confirming receipt of the latest scan. She just needed his insurance info which I provided. documented in this encounter [facility] 05-30-2023 Telephone encounter Note Pt's girlfriend called wondering how long it was going to take to get his dexcom in or if its the insurance holding it up ? [facility] 05-30-2023 Telephone encounter Note Vivien- do you know any information in regards to this? [facility] 05-30-2023 Telephone encounter Note I sent an email to Joe at [facility] to find out what is going on. [facility] 05-30-2023 Telephone encounter Note Thank you ladies [facility] 05-30-2023 Telephone encounter Note I called April and she did not get the fax. I just sent the fax to her again [facility] 05-30-2023 Telephone encounter Note Maite called back confirming receipt of the latest scan. She just needed his insurance info which I provided. [facility] 05-10-2023 History of Present illness Narrative Images from the original note were not included. Rachel W [facility]RILL[place] [id number] SUBJECTIVE: Patient ID: Elias Walker is a 37 y.o. male. Blood sugars was over 500 on May 07, admits to drinking sugar beverages and snacking concentrated sweets. Called after hours last night, girlfriend was concerned about how low is too low to hold Levimir at night . Blood sugar was 153 last night. Was 215 fasting this AM. Recently, Trulicty was increased to 3 mg week, has been doing this for 2 weeks. Started Levimir 10 units nightly last weekend. Is now checking blood sugars twice daily and keeping log. Diabetes He presents for his follow-up diabetic visit. He has type 2 diabetes mellitus. His disease course has been fluctuating. Pertinent negatives for hypoglycemia include no headaches or seizures. Associated symptoms include fatigue. Pertinent negatives for diabetes include no chest pain, no polydipsia, no polyphagia and no polyuria. There are no hypoglycemic complications. There are no diabetic complications. Risk factors for coronary artery disease include diabetes mellitus, dyslipidemia, family history, hypertension, male sex and obesity. Current diabetic treatments: Farxiga, Trulicity, Levimir. He is compliant with treatment all of the time. His weight is stable. He is following a generally healthy diet. Diabetic meal planning: He is working on improving intake of concentrated sweets and sodas. He rarely participates in exercise. His home blood glucose trend is fluctuating dramatically. His breakfast blood glucose range is generally >200 mg/dl. His lunch blood glucose range is generally >200 mg/dl. His dinner blood glucose range is generally >200 mg/dl. His overall blood glucose range is >200 mg/dl. An TYRON inhibitor/angiotensin II receptor ubaldo is being taken. The following portions of the patient's history were reviewed and updated as appropriate: allergies, current medications, past family history, past medical history, past social history, past surgical history and problem list. Past Surgical History: Procedure Laterality Date CARDIAC CATHETERIZATION 05/30/2022 CORONARY ARTERY BYPASS GRAFT 06/03/2022 PARATHYROIDECTOMY / EXPLORATION OF PARATHYROIDS Right 02/20/2023 PRIAPISM SURGERY Past Medical History: Diagnosis Date Asthma Hypertension MRSA (methicillin resistant staph aureus) culture positive 2016 Priapism Shortness of breath There is no immunization history on file for this patient. REVIEW OF SYSTEMS: Review of Systems Constitutional: Positive for fatigue. Negative for chills and fever. HENT: Negative for hearing loss and trouble swallowing. Eyes: Negative for pain and visual disturbance. Respiratory: Negative for cough, chest tightness and shortness of breath. Cardiovascular: Negative for chest pain, palpitations and leg swelling. Gastrointestinal: Negative for blood in stool. Endocrine: Negative for polydipsia, polyphagia and polyuria. Genitourinary: Negative for difficulty urinating, dysuria, flank pain, hematuria, scrotal swelling and testicular pain. Musculoskeletal: Negative. Skin: Negative. Allergic/Immunologic: Negative. Neurological: Negative for seizures, syncope and headaches. Hematological: Does not bruise/bleed easily. Psychiatric/Behavioral: Positive for decreased concentration and dysphoric mood. Negative for suicidal ideas. PHYSICAL EXAMINATION: Vitals: 05/10/23 1335 BP: 126/78 BP Site: Left Arm BP Postition: Sitting Pulse: 84 Temp: 36.9 C (98.4 F) TempSrc: Oral SpO2: 94% Weight: 133.3 kg (293 lb 12.8 oz) Height: 165.1 cm (5' 5 ) Patient noted to have elevated BMI and the following intervention(s) were applied: encouragement to exercise. Physical Exam Vitals and nursing note reviewed. Constitutional: General: He is not in acute distress. Appearance: He is well-developed. HENT: Head: Normocephalic and atraumatic. Right Ear: Tympanic membrane and external ear normal. Left Ear: Tympanic membrane and external ear normal. Nose: Nose normal. Mouth/Throat: Mouth: Mucous membranes are moist. Pharynx: No oropharyngeal exudate. Eyes: General: No scleral icterus. Right eye: No discharge. Left eye: No discharge. Conjunctiva/sclera: Conjunctivae normal. Pupils: Pupils are equal, round, and reactive to light. Neck: Vascular: No JVD. Cardiovascular: Rate and Rhythm: Normal rate and regular rhythm. Heart sounds: Normal heart sounds. No murmur heard. No friction rub. No gallop. Pulmonary: Effort: Pulmonary effort is normal. No respiratory distress. Breath sounds: Normal breath sounds. Chest: Chest wall: No tenderness. Abdominal: General: Bowel sounds are normal. There is no distension. Palpations: Abdomen is soft. There is no mass. Tenderness: There is no abdominal tenderness. There is no guarding or rebound. Hernia: No hernia is present. Musculoskeletal: General: No tenderness. Normal range of motion. Cervical back: Normal range of motion and neck supple. Lymphadenopathy: Cervical: No cervical adenopathy. Skin: General: Skin is warm and dry. Capillary Refill: Capillary refill takes less than 2 seconds. Findings: No rash. Neurological: Mental Status: He is alert and oriented to person, place, and time. Deep Tendon Reflexes: Reflexes are normal and symmetric. Psychiatric: Mood and Affect: Mood normal. Behavior: Behavior normal. Thought Content: Thought content normal. Judgment: Judgment normal. ASSESSMENT/PLAN: Elias was seen today for discuss blood sugars. Diagnoses and all orders for this visit: Moderate episode of recurrent major depressive disorder ([facility]) - cariprazine (VRAYLAR) 1.5 mg capsule; Take 1 capsule (1.5 mg total) by mouth in the morning. Uncontrolled type 2 diabetes mellitus with hyperglycemia (CMS-HCC) Fluctuating blood sugars. Was not checking sugars till several weeks ago. Blood sugars high 400 to 500 Monday and Monday. Admits to eating concentrated sweets, sugar sodas and [employer] coffee with high sugar. Blood sugar this AM was 215 today, 153 last night Encourage routine home blood sugar monitoring, diet modification, and exercise regimen. Continue Trulicity 3 mg weekly Farxiga 10 mg oral daily Levemir 10 units nightly. Start Dexcom 7 for blood sugar continuous monitoring Due to advanced cardiac disease and Type 2 DM, we discussed changing Abilify to Vraylar for depression, pending prior auth. Body mass index is 48.89 kg/m . Patient noted to have elevated BMI and the following intervention(s) were applied: Discussed current weight today. Consider healthy food choices, portion control. Avoid sugary beverages and high concentrated sweets. Routine exercise regimen encouraged. ALL QUESTIONS ANSWERED Total time spent was 30 minutes: Preparing to see the patient (e.g., review of tests) Obtaining and/or reviewing separately obtained history Performing a medically appropriate examination and/or evaluation Counseling and educating the patient/family/caregiver Ordering medications, tests, or procedures Follow-up: One week Nurse visit Dexcom set up VANESSA Taylor 05/10/23 7950 documented in this encounter [facility] [employer] 05-09-2023 History of Present illness Narrative After hours on-call service states that patient has blood glucose was in the 500s before starting his Levemir a few days ago. When he woke up this morning his blood sugar is now down to 195 fasting. His girlfriend checked his blood sugar later this evening and it was 153 and they called the after hours number to determine if this was too low to give his Levemir. I stated that the 10 units of Levemir could still be given as it is a basal insulin and should not rapidly drop his blood sugar. If he does have signs and symptoms of hypoglycemia he may 30 g of carbs and recheck his blood sugar. Patient has an upcoming appointment with his PCP in 2 days. VANESSA Linton 05/09/23 9953 documented in this encounter [facility] 05-05-2023 History of Present illness Narrative [address] [place] [address] Patient: Elias Walker Date of : 1985 Encounter Date: 05/05/2023 History of Present Illness: The patient is a 37 y.o. male, an established patient, and is here for Chief Complaint Patient presents with Diabetes Sugar been [id number] . HPI This pt is new to me, his PCP was unavailable. Medical history reviewed with pt, he has partial recall memory of his extensive medical history/confirmed most with chart. Pt brought his FBG log in and many of his sugars are >250 with several over 300 for last X 2wks. He is experiencing polydipsia, fatigue and blurry vision. Patient has had a 6 lb weight loss in the last few weeks. Patient recently underwent parathyroid/thyroidectomy surgery in March and had follow-up with Endocrine surgery 2 days ago. He recently finished cefdinir yesterday which was given after surgery. He was given Zofran and meclizine after surgery as well but he has not had to take these. His type 2 diabetes medications were reviewed with patient today, he apparently he could not tolerate metformin due to side effects. He has not currently on insulin. His recent labs that were drawn from Endocrine were reviewed today including a slightly high potassium and a slightly low sodium and worsening of kidney function. Patient has been afraid to drink too much so has been denying himself excess fluids due to worrying about having low-sodium. He also sees a corrosion technician and he has undergone a CABG about 7 months ago he thinks. He does not recall any recent follow-up with Cardiology. Problem List Items Addressed This Visit Endocrine Type 2 diabetes mellitus with microalbuminuria, without long-term current use of insulin ([facility]) - Primary Relevant Medications insulin detemir U-100 (LEVEMIR FLEXPEN) 100 unit/mL (3 mL) insulin pen Other Visit Diagnoses Fasting hyperglycemia Past Medical, Family, and Social History Update: The following portions of the patient's history were reviewed and updated as appropriate: allergies, current medications, past family history, past medical history, past social history, past surgical history and problem list. Past Medical History: Diagnosis Date Asthma Hypertension MRSA (methicillin resistant staph aureus) culture positive 2015 Priapism Shortness of breath Past Surgical History: Procedure Laterality Date CARDIAC CATHETERIZATION 05/30/2022 CORONARY ARTERY BYPASS GRAFT 06/03/2022 PARATHYROIDECTOMY / EXPLORATION OF PARATHYROIDS Right 02/20/2023 PRIAPISM SURGERY Current Outpatient Medications Medication Sig Dispense Refill alcohol swabs (ALCOHOL PREP PADS) pads, medicated Apply 1 Pad topically in the morning and at bedtime. 100 each 6 amiodarone (PACERONE) 200 mg tablet Take 1 tablet (200 mg total) by mouth in the morning. ARIPiprazole (ABILIFY) 5 mg tablet Take 1 tablet (5 mg total) by mouth in the morning. 90 tablet 1 aspirin 81 mg Take 1 tablet (81 mg total) by mouth in the morning. atorvastatin (LIPITOR) 80 mg tablet Take 1 tablet (80 mg total) by mouth nightly. 90 tablet 2 blood sugar diagnostic (glucose blood) strip Monitor blood sugars twice daily 60 strip 6 blood-glucose meter (glucose monitoring kit) kit Use as instructed 1 each 0 calcium carbonate (ANTACID, CALCIUM CARBONATE,) 200 mg elemental (500 mg) chewable tablet Chew 5 tablets (1,000 mg total) and swallow. cetirizine (ZyrTEC) 10 mg tablet take 1 tablet by mouth every morning 30 tablet 6 cinacalcet (SENSIPAR) 30 mg tablet Take 1 tablet (30 mg total) by mouth. clopidogreL (PLAVIX) 75 mg tablet Take 1 tablet (75 mg total) by mouth in the morning. dapagliflozin propanediol (FARXIGA) 10 mg tablet take 1 tablet by mouth every morning 90 tablet 1 dulaglutide 3 mg/0.5 mL pen injector Inject 3 mg under the skin every 7 days. 2 mL 4 EYE ITCH RELIEF 0.025 % (0.035 %) ophthalmic solution INSTILL 1 DROP INTO BOTH EYES TWICE A DAY DIRECTED FLUoxetine (PROzac) 20 mg capsule Take 1 capsule (20 mg total) by mouth in the morning. 90 capsule 1 fluticasone propionate (FLONASE) 50 mcg/actuation nasal spray Administer 2 sprays into each nostril in the morning. 15.8 mL 6 lancets (accu-chek soft touch) [facility] Monitor blood sugars twice daily 100 each 6 lisinopriL (PRINIVIL,ZESTRIL) 5 mg tablet Take 1 tablet (5 mg total) by mouth. meclizine (ANTIVERT) 25 mg tablet take 1 tablet by mouth four times a day if needed for dizziness metoprolol tartrate (LOPRESSOR) 25 mg tablet Take 1 tablet (25 mg total) by mouth in the morning and 1 tablet (25 mg total) before bedtime. ondansetron ODT (ZOFRAN ODT) 4 mg disintegrating tablet dissolve 1 tablet ON TONGUE every 6 hours if needed for nausea and vomiting insulin detemir U-100 (LEVEMIR FLEXPEN) 100 unit/mL (3 mL) insulin pen Inject 10 Units under the skin nightly. 15 mL 1 lancets (TRUEPLUS LANCETS) 33 gauge misc 1 Lancet by miscellaneous route in the morning. 90 each 1 pen needle, diabetic 31 gauge x 1/4 needle 1 Pen Needle by miscellaneous route in the morning. 90 each 1 No current facility-administered medications for this visit. (All medications reviewed and updated by provider since last office visit or hospitalization) Allergies: Food allergy formula, Tomato, and Wellbutrin [bupropion hcl] Tobacco History: Social History Tobacco Use Smoking Status Former Packs/day: 0.25 Years: 14.00 Additional pack years: 0.00 Total pack years: 3.50 Types: Cigarettes Smokeless Tobacco Current (If patient a smoker, smoking cessation counseling offered) Social History: Social History Substance and Sexual Activity Alcohol Use Not Currently Comment: Occasionally Review of Systems: Review of Systems Constitutional: Positive for unexpected weight change (6 lb weight loss in the last few weeks). Respiratory: Negative. Cardiovascular: Negative. Gastrointestinal: Negative. Endocrine: Positive for polydipsia and polyuria. Genitourinary: Negative for frequency. Neurological: Negative. Physical Exam: BP 130/90 (BP Site: Left Arm, BP Postition: Sitting) Pulse 90 Temp 36.4 C (97.6 F) (Oral) Ht 165.1 cm (5' 5 ) Wt 135 kg (297 lb 9.6 oz) SpO2 98% BMI 49.52 kg/m Physical Exam Vitals reviewed. Constitutional: Appearance: Normal appearance. He is obese. HENT: Head: Normocephalic and atraumatic. Mouth/Throat: Mouth: Mucous membranes are moist. Cardiovascular: Rate and Rhythm: Normal rate and regular rhythm. Heart sounds: Normal heart sounds. Pulmonary: Effort: Pulmonary effort is normal. Breath sounds: Normal breath sounds. Abdominal: General: Bowel sounds are normal. Palpations: Abdomen is soft. Tenderness: There is no abdominal tenderness. Comments: Obese Musculoskeletal: Right lower leg: Edema (Trace edema boyd) present. Left lower leg: Edema (Trace edema boyd) present. Skin: General: Skin is warm. Capillary Refill: Capillary refill takes less than 2 seconds. Neurological: General: No focal deficit present. Mental Status: He is alert and oriented to person, place, and time. Psychiatric: Mood and Affect: Mood normal. Affect is flat. Behavior: Behavior normal. Assessment and Plan: Elias was seen today for diabetes. Diagnoses and all orders for this visit: Type 2 diabetes mellitus with microalbuminuria, without long-term current use of insulin ([facility]) Fasting hyperglycemia Other orders - insulin detemir U-100 (LEVEMIR FLEXPEN) 100 unit/mL (3 mL) insulin pen; Inject 10 Units under the skin nightly. - pen needle, diabetic 31 gauge x 1/4 needle; 1 Pen Needle by miscellaneous route in the morning. - lancets (TRUEPLUS LANCETS) 33 gauge misc; 1 Lancet by miscellaneous route in the morning. Follow-up: Since blood sugars are acutely high, we will start basal insulin. Patient can start at 10 units per day and increase by 3 units every 3 days if FBG >250. These directions were reviewed and written down for pt. He should stay well hydrated as his corrosion technician does not have him on a fluid restriction. He should f/u with his PCP next week to re-check his metabolic panel after BG correction. Pt denies having missed doses of his diabetes medications. If he experiences change in LOC, lightheadedness, chest pain or worsening of current symptoms despite the insulin, he is to go to the ER. He states understanding of these directions. It was recommended he add BG check if he has s/s of hypoglycemia which were reviewed today - he was given more lancets if he needs to do this. If he needs teaching on how to use his insulin pen or inject, he is to go to his pharmacist for instruction though technique was reviewed in office today. 36 min spent with pt today >50% on education. VANESSA LINTON APRN-CNP 05/08/23 0930 documented in this encounter [facility] 04-19-2023 History of Present illness Narrative Images from the original note were not included. [address] [facility] [id number] SUBJECTIVE: Patient ID: Elias Walker is a 37 y.o. male. Chief Complaint Patient presents with Diabetes Presents for follow up Significant other is present today. She is concerned about patients snoring with periods of apnea. He also is experiencing daytime sedation. Would like discuss sleep study referral. Request Dr. Marbella Marin. Admits he has not been checking blood sugars at home. Has not been following ADA diet. Diabetes He presents for his initial diabetic visit. He has type 2 diabetes mellitus. His disease course has been improving. Pertinent negatives for hypoglycemia include no headaches, nervousness/anxiousness or seizures. Associated symptoms include fatigue and polyuria. Pertinent negatives for diabetes include no chest pain, no polydipsia and no polyphagia. There are no hypoglycemic complications. Symptoms are improving. Diabetic complications include a CVA, heart disease, impotence and nephropathy. Risk factors for coronary artery disease include dyslipidemia, diabetes mellitus, hypertension, male sex, obesity and sedentary lifestyle. Current diabetic treatment includes diet (Will initiate Farxiga and Trulicity. He is compliant with treatment all of the time. His weight is decreasing steadily. He is following a generally healthy, diabetic and low fat/cholesterol diet. Meal planning includes avoidance of concentrated sweets and carbohydrate counting. He rarely participates in exercise. Is not checking his blood sugars. An TYRON inhibitor/angiotensin II receptor ubaldo is being taken. He does not see a voice intercept technician. Eye exam is not current. Hypertension This is a chronic problem. The current episode started more than 1 year ago. The problem has been gradually improving since onset. Associated symptoms include peripheral edema. Pertinent negatives include no chest pain, headaches, palpitations or shortness of breath. Risk factors for coronary artery disease include dyslipidemia, diabetes mellitus, male gender, obesity and sedentary lifestyle. Past treatments include TYRON inhibitors, beta blockers and calcium channel blockers. The current treatment provides significant improvement. Hypertensive end-organ damage includes kidney disease, CAD/TN, CVA and heart failure. Identifiable causes of hypertension include chronic renal disease and hyperparathyroidism. Hyperlipidemia This is a chronic problem. The current episode started more than 1 year ago. Recent lipid tests were reviewed and are variable. Exacerbating diseases include chronic renal disease, diabetes and obesity. There are no known factors aggravating his hyperlipidemia. Pertinent negatives include no chest pain, myalgias or shortness of breath. Current antihyperlipidemic treatment includes statins. The current treatment provides moderate improvement of lipids. There are no compliance problems. Risk factors for coronary artery disease include diabetes mellitus, dyslipidemia, hypertension, male sex, obesity and a sedentary lifestyle. The following portions of the patient's history were reviewed and updated as appropriate: allergies, current medications, past family history, past medical history, past social history, past surgical history and problem list. Past Surgical History: Procedure Laterality Date CARDIAC CATHETERIZATION 05/30/2022 CORONARY ARTERY BYPASS GRAFT 06/03/2022 PARATHYROIDECTOMY / EXPLORATION OF PARATHYROIDS Right 02/20/2023 PRIAPISM SURGERY Past Medical History: Diagnosis Date Asthma Hypertension MRSA (methicillin resistant staph aureus) culture positive 2016 Priapism Shortness of breath There is no immunization history on file for this patient. REVIEW OF SYSTEMS: Review of Systems Constitutional: Positive for fatigue. Negative for chills and fever. HENT: Negative for hearing loss and trouble swallowing. Eyes: Negative for pain and visual disturbance. Respiratory: Negative for cough, chest tightness and shortness of breath. Cardiovascular: Negative for palpitations and leg swelling. Gastrointestinal: Negative for blood in stool. Genitourinary: Negative for difficulty urinating, dysuria, flank pain, hematuria, scrotal swelling and testicular pain. Musculoskeletal: Negative. Skin: Negative. Allergic/Immunologic: Negative. Neurological: Negative for syncope. Hematological: Does not bruise/bleed easily. Psychiatric/Behavioral: Negative. PHYSICAL EXAMINATION: Vitals: 04/19/23 0906 BP: 118/80 BP Site: Left Arm BP Postition: Sitting Pulse: 76 Temp: 36.3 C (97.3 F) TempSrc: Tympanic SpO2: 97% Weight: (!) 137.5 kg (303 lb 3.2 oz) Height: 165.1 cm (5' 5 ) Patient noted to have elevated BMI and the following intervention(s) were applied: encouragement to exercise. Physical Exam Vitals and nursing note reviewed. Constitutional: General: He is not in acute distress. Appearance: He is well-developed. HENT: Head: Normocephalic and atraumatic. Right Ear: Tympanic membrane and external ear normal. Left Ear: Tympanic membrane and external ear normal. Nose: Nose normal. Mouth/Throat: Mouth: Mucous membranes are moist. Pharynx: No oropharyngeal exudate. Eyes: General: No scleral icterus. Right eye: No discharge. Left eye: No discharge. Conjunctiva/sclera: Conjunctivae normal. Pupils: Pupils are equal, round, and reactive to light. Neck: Vascular: No JVD. Cardiovascular: Rate and Rhythm: Normal rate and regular rhythm. Heart sounds: Normal heart sounds. No murmur heard. No friction rub. No gallop. Pulmonary: Effort: Pulmonary effort is normal. No respiratory distress. Breath sounds: Normal breath sounds. Chest: Chest wall: No tenderness. Abdominal: General: Bowel sounds are normal. There is no distension. Palpations: Abdomen is soft. There is no mass. Tenderness: There is no abdominal tenderness. There is no guarding or rebound. Hernia: No hernia is present. Musculoskeletal: General: No tenderness. Normal range of motion. Cervical back: Normal range of motion and neck supple. Lymphadenopathy: Cervical: No cervical adenopathy. Skin: General: Skin is warm and dry. Capillary Refill: Capillary refill takes less than 2 seconds. Findings: No rash. Neurological: Mental Status: He is alert and oriented to person, place, and time. Deep Tendon Reflexes: Reflexes are normal and symmetric. Psychiatric: Mood and Affect: Mood normal. Behavior: Behavior normal. Thought Content: Thought content normal. Judgment: Judgment normal. ASSESSMENT/PLAN: Elias was seen today for diabetes. Diagnoses and all orders for this visit: Type 2 diabetes mellitus with microalbuminuria, without long-term current use of insulin ([facility]) - dulaglutide 3 mg/0.5 mL pen injector; Inject 3 mg under the skin every 7 days. Type 2 diabetes mellitus with stage 3 chronic kidney disease and hypertension ([facility]) - dapagliflozin propanediol (FARXIGA) 10 mg tablet; take 1 tablet by mouth every morning Anxiety and depression - FLUoxetine (PROzac) 20 mg capsule; Take 1 capsule (20 mg total) by mouth in the morning. Snoring - Ambulatory referral to Sleep Medicine (Non-[facility]); Future Depression: Not at risk (04/19/2023) PHQ-2 PHQ-2 Score: 0 Recent Concern: Depression - At risk (03/08/2023) PHQ-2 PHQ-2 Score: 3 Last A1c 7.08 March 2023 Increase Trulicity to 3 mg weekly Continue Farxiga Discussion about ADA diet and blood glucose monitoring compliance. Encourage routine home blood sugar monitoring, diet modification, and exercise regimen. Daily self skin foot checks Yearly eye exam reminder HTN Controlled Continue metoprolol tartrate Lisinopril 5 mg oral daily Depression and anxiety Depression: Not at risk (04/19/2023) PHQ-2 PHQ-2 Score: 0 Recent Concern: Depression - At risk (03/08/2023) PHQ-2 PHQ-2 Score: 3 Stable. Continue fluoxetine 20 mg oral daily Abilify 5 mg oral daily Mixed hyperlipidemia Continue atorvastatin 80 mg oral daily Witnessed snoring with periods of apnea -Daytime somnolence. Morbid obesity. CAD Referral to sleep medicine Body mass index is 50.46 kg/m . Patient noted to have elevated BMI and the following intervention(s) were applied: Discussed current weight today. Consider healthy food choices, portion control. Avoid sugary beverages and high concentrated sweets. Routine exercise regimen encouraged. ALL QUESTIONS ANSWERED Total time spent was 30 minutes: Preparing to see the patient (e.g., review of tests) Obtaining and/or reviewing separately obtained history Performing a medically appropriate examination and/or evaluation Counseling and educating the patient/family/caregiver Ordering medications, tests, or procedures Follow-up: 3 months Jose Khanna APRN-RECREATION SUPERVISOR 04/24/23 0935 documented in this encounter [facility] [employer] 03-28-2023 History of Present illness Narrative Subjective Patient ID: Elias Walker is a 37 y.o. male. For the past 2-3 months he is constantly biting his tongue on the left side He finds himself doing this during the day and also it has been interrupting his sleep at night He is uanble to stop himself from doing it He doesn't remember why he started doing it and he feels his depression anxiety is well controlled with current medications so he doesn't feel he is doing it secondary to anxiety The following portions of the patient's history were reviewed and updated as appropriate: allergies, current medications, past family history, past medical history, past social history, past surgical history, problem list, and medication reconciliation was completed including current medication and post discharge medication. Review of Systems Constitutional: Negative. HENT: Positive for dental problem (tongue biting). Eyes: Negative. Respiratory: Negative. Cardiovascular: Negative. Gastrointestinal: Negative. Endocrine: Negative. Genitourinary: Negative. Musculoskeletal: Negative. Neurological: Negative. Hematological: Negative. Psychiatric/Behavioral: Positive for dysphoric mood (currenlty on medications and feels well managed). Objective Physical Exam Vitals and nursing note reviewed. Constitutional: Appearance: He is obese. HENT: Head: Normocephalic. Nose: Nose normal. Mouth/Throat: Mouth: Mucous membranes are moist. Comments: On the left side of his tongue there is a lesion with a sizeable dome shaped depression and at the superior edge it is rough, crusted and raised (picture obtained) Cardiovascular: Rate and Rhythm: Normal rate and regular rhythm. Heart sounds: Normal heart sounds. No murmur heard. Musculoskeletal: Cervical back: Normal range of motion and neck supple. Lymphadenopathy: Cervical: No cervical adenopathy. Skin: General: Skin is warm and dry. Neurological: Mental Status: He is alert and oriented to person, place, and time. Psychiatric: Mood and Affect: Mood normal. Thought Content: Thought content normal. Judgment: Judgment normal. Assessment/Plan Elias was seen today for keeps biting tongue more frequent last 3 weeks. Diagnoses and all orders for this visit: Lesion of tongue Unsure if the lesion is a result of the tongue biting or he is biting due to the presence of the lesion however he is a former smoker and his anxiety and depression seems to be managed with his current medications so it is prudent to have him seen by ENT to have the oral lesion evaluated further In the meantime recommended a mouth guard at night to prevent further irritation and try sugarless chewing gum during the day for distraction MAGUI Rockwell 03/28/23 1131 documented in this encounter [facility] 03-08-2023 History of Present illness Narrative Images from the original note were not included. Chief Complaint Patient presents with Follow-up [facility] [facility] [id number] SUBJECTIVE: Patient ID: Elias Walker is a 37 y.o. male. Chief Complaint Patient presents with Follow-up Presents for follow up States he recently had parathyroid removed in February due to hyperparathyroidism. Is recovering well. Moods have been more stable. Checks blood sugars when he remembers. Diabetes He presents for his initial diabetic visit. He has type 2 diabetes mellitus. His disease course has been improving. Pertinent negatives for hypoglycemia include no headaches, nervousness/anxiousness or seizures. Associated symptoms include fatigue and polyuria. Pertinent negatives for diabetes include no chest pain, no polydipsia and no polyphagia. There are no hypoglycemic complications. Symptoms are improving. Diabetic complications include a CVA, heart disease, impotence and nephropathy. Risk factors for coronary artery disease include dyslipidemia, diabetes mellitus, hypertension, male sex, obesity and sedentary lifestyle. Current diabetic treatment includes diet Trulicity and Farxiga. He is compliant with treatment all of the time. His weight is decreasing steadily. He is following a generally healthy, diabetic and low fat/cholesterol diet. Meal planning includes avoidance of concentrated sweets and carbohydrate counting. He rarely participates in exercise. Home blood sugar record trend: His breakfast blood glucose range is generally 130-140 mg/dl. His dinner blood glucose range is generally 180-200 mg/dl. His bedtime blood glucose range is generally 140-180 mg/dl. An TYRON inhibitor/angiotensin II receptor ubaldo is being taken. He does not see a voice intercept technician.Eye exam is not current. Hypertension This is a chronic problem. The current episode started more than 1 year ago. The problem has been gradually improving since onset. Associated symptoms include peripheral edema. Pertinent negatives include no chest pain, headaches, palpitations or shortness of breath. Risk factors for coronary artery disease include dyslipidemia, diabetes mellitus, male gender, obesity and sedentary lifestyle. Past treatments include TYRON inhibitors, beta blockers and calcium channel blockers. The current treatment provides significant improvement. Hypertensive end-organ damage includes kidney disease, CAD/TN, CVA and heart failure. Identifiable causes of hypertension include chronic renal disease and hyperparathyroidism. Hyperlipidemia This is a chronic problem. The current episode started more than 1 year ago. Recent lipid tests were reviewed and are variable. Exacerbating diseases include chronic renal disease, diabetes and obesity. There are no known factors aggravating his hyperlipidemia. Pertinent negatives include no chest pain, myalgias or shortness of breath. Current antihyperlipidemic treatment includes statins. The current treatment provides moderate improvement of lipids. There are no compliance problems. Risk factors for coronary artery disease include diabetes mellitus, dyslipidemia, hypertension, male sex, obesity and a sedentary lifestyle. The following portions of the patient's history were reviewed and updated as appropriate: allergies, current medications, past family history, past medical history, past social history, past surgical history and problem list. Past Surgical History: Procedure Laterality Date CARDIAC CATHETERIZATION 05/30/2022 CORONARY ARTERY BYPASS GRAFT 06/03/2022 PARATHYROIDECTOMY / EXPLORATION OF PARATHYROIDS Right 02/20/2023 PRIAPISM SURGERY Past Medical History: Diagnosis Date Asthma Hypertension MRSA (methicillin resistant staph aureus) culture positive 2016 Priapism Shortness of breath There is no immunization history on file for this patient. REVIEW OF SYSTEMS: Review of Systems Constitutional: Negative for chills, fatigue and fever. HENT: Negative for hearing loss and trouble swallowing. Eyes: Negative for pain and visual disturbance. Respiratory: Negative for cough, chest tightness and shortness of breath. Cardiovascular: Negative for chest pain, palpitations and leg swelling. Gastrointestinal: Negative for blood in stool. Endocrine: Negative for polydipsia, polyphagia and polyuria. Genitourinary: Negative for difficulty urinating, dysuria, flank pain, hematuria, scrotal swelling and testicular pain. Musculoskeletal: Negative. Skin: Negative. Allergic/Immunologic: Negative. Neurological: Negative for seizures, syncope and headaches. Hematological: Does not bruise/bleed easily. Psychiatric/Behavioral: Negative. PHYSICAL EXAMINATION: Vitals: 03/08/23 1650 BP: 126/68 BP Site: Right Arm BP Postition: Sitting Pulse: 59 Temp: 36.5 C (97.7 F) TempSrc: Temporal SpO2: 96% Weight: 133.5 kg (294 lb 6.4 oz) Height: 165.1 cm (5' 5 ) Patient noted to have elevated BMI and the following intervention(s) were applied: encouragement to exercise. Physical Exam Vitals and nursing note reviewed. Constitutional: General: He is not in acute distress. Appearance: He is well-developed. HENT: Head: Normocephalic and atraumatic. Right Ear: Tympanic membrane and external ear normal. Left Ear: Tympanic membrane and external ear normal. Nose: Nose normal. Mouth/Throat: Mouth: Mucous membranes are moist. Pharynx: No oropharyngeal exudate. Eyes: General: No scleral icterus. Right eye: No discharge. Left eye: No discharge. Conjunctiva/sclera: Conjunctivae normal. Pupils: Pupils are equal, round, and reactive to light. Neck: Vascular: No JVD. Cardiovascular: Rate and Rhythm: Normal rate and regular rhythm. Heart sounds: Normal heart sounds. No murmur heard. No friction rub. No gallop. Pulmonary: Effort: Pulmonary effort is normal. No respiratory distress. Breath sounds: Normal breath sounds. Chest: Chest wall: No tenderness. Abdominal: General: Bowel sounds are normal. There is no distension. Palpations: Abdomen is soft. There is no mass. Tenderness: There is no abdominal tenderness. There is no guarding or rebound. Hernia: No hernia is present. Musculoskeletal: General: No tenderness. Normal range of motion. Cervical back: Normal range of motion and neck supple. Lymphadenopathy: Cervical: No cervical adenopathy. Skin: General: Skin is warm and dry. Capillary Refill: Capillary refill takes less than 2 seconds. Findings: No rash. Neurological: Mental Status: He is alert and oriented to person, place, and time. Deep Tendon Reflexes: Reflexes are normal and symmetric. Psychiatric: Mood and Affect: Mood normal. Behavior: Behavior normal. Thought Content: Thought content normal. Judgment: Judgment normal. ASSESSMENT/PLAN: Elias was seen today for follow-up. Diagnoses and all orders for this visit: Type 2 diabetes mellitus with microalbuminuria, without long-term current use of insulin ([facility]) - POCT Hemoglobin A1c - dulaglutide (TRULICITY) 1.5 mg/0.5 mL pen injector; Inject 1.5 mg under the skin every 7 days. Mixed anxiety and depressive disorder - ARIPiprazole (ABILIFY) 5 mg tablet; Take 1 tablet (5 mg total) by mouth in the morning. Mixed hyperlipidemia - atorvastatin (LIPITOR) 80 mg tablet; Take 1 tablet (80 mg total) by mouth nightly. Stage 3b chronic kidney disease ([facility]) A1c 7.3% Increase Trulicity to 1.5 mg weekly Continue Farxiga 10 mg oral daily Discussed weight loss and diet modification, ADA diet for better sugar control Encourage routine home blood sugar monitoring, diet modification, and exercise regimen. Reminder to complete yearly eye exam Daily self skin foot checks Is taking statin and TYRON Mixed hyperlipidemia Continue atorvastatin 80 mg oral daily Mixed anxiety and depression Depression: At risk (03/08/2023) PHQ-2 PHQ-2 Score: 3 Relates due to his health status, moods can be up and down. Overall, he relates he feels stable -Continue fluoxetine 20 mg oral daily and aripiprazole 5 mg oral daily Chronic kidney disease stage 3b Is monitored by nephrology On TYRON and Farxiga, +microalbumine Creatinine 2.14, GFR 37 Body mass index is 48.99 kg/m . Patient noted to have elevated BMI and the following intervention(s) were applied: Discussed current weight today. Consider healthy food choices, portion control. Avoid sugary beverages and high concentrated sweets. Routine exercise regimen encouraged. Patient vapes nicotine Patient is a current smoker, smoking cessation discussed today in office. He/She is not interested at this time ALL QUESTIONS ANSWERED Total time spent was 30 minutes: Preparing to see the patient (e.g., review of tests) Obtaining and/or reviewing separately obtained history Performing a medically appropriate examination and/or evaluation Counseling and educating the patient/family/caregiver Ordering medications, tests, or procedures Follow-up: 3 months Jose Khanna APRN-RECREATION SUPERVISOR 03/22/23 1032 documented in this encounter [facility] 03-08-2023 Instructions VANESSA Taylor - 03/08/2023 4:30 PM EST Are You Ready To Kick The Habit? Free Tobacco Cessation Resources [facility] Services [facility] provide all employees with free tobacco cessation services that include: Counseling to understand nicotine addiction Education about medications that can help you successfully quit Assistance with developing a plan to quit Call to set up an individual appointment or find out when group classes will be held: [facility]: [phone] [facility]: [phone] [facility]: [phone] [facility]: [phone] Quit Smoking Action Plan and Resources [facility] offers an eight-week, online smoking cessation plan to all [facility] employees, regardless of whether [place] is your medical insurance provider. Go to [email or web address] and click the Health Risk Assessment and Resources link to get started. In the [employer] menu, click Action Plans instead of Health Risk Assessment to access the Quit Smoking Action Plan. Additional smoking cessation resources are also available to all [facility] employees on the [employer] web page at [email or web address] [email or web address]. [place] Tobacco Cessation Program If [place] is your medical insurance provider, there are more free resources available to you, including: No copays or deductibles on local tobacco cessation counseling services to help you quit Prescription assistance for tobacco cessation medications to help you quit For details about the tobacco cessation program available to [place] members, go to www.[employer].MyUS.com (Search: Tobacco Cessation Program). [place] Tobacco Quit Line 9-809-FAUW-NOW ( ) is a toll-free, telephonic service that helps [place] residents quit smoking and using tobacco. It is staffed by experts who tailor a quit plan for you and provide you with advice. [place] Tobacco Quit Line 1-466-HUDG-NOW ( ) is a toll-free, telephonic service that helps [place] residents quit smoking and using tobacco. It is staffed by experts who tailor a quit plan for you and provide you with advice. Two weeks of nicotine replacement therapy may be provided at no charge, if needed. Additional Resources These national organizations also offer free information and resources to help you quit tobacco: [place] [employer]--www.cancer.org/healthy/s tayawayfromtobacco [place] [employer]--www.heart.org (Search: Quit Smoking) Centers for Disease Control and Prevention--www.cdc.gov/tobacco [place] Lung [employer]--www.lungusa.org The following attachments cannot be sent through Care Everywhere.Anxiety Discharge Instructions, Adult (Emirati)documented in this encounter [employer] 08-15-2022 History of Present illness Narrative Phase II Cardiac Rehab Individualized Treatment Plan - 60 Day Patient Name: Elias Walker Date: 08/12/2022 Diagnosis: CABG Onset Date: 06/02/2022 Referring Physician: Dr. Purdy Session Number: 5 EXERCISE Stages of Change: [] pre-contemplation [x] Action [] Contemplate [] Maintenance [] Prep [] Relapse Exercise Prescription: Mode: [x] TM [x] B [x] STP [] R [x] UBE Frequency: 3 days per week Duration: 31-60 minutes Intensity: 2.3-3.4 METs THRR: 139-161 Progression: Based on risk stratification, may increase duration per F.I.T.T. protocol parameters on average 5-10 minutes every 1-2 weeks for the first 4-6 weeks. After 3-4 weeks completed, continue to gradually increase F.I.T.T. parameters gradually at the established duration on average 0.5-1.0 METs per 30 days over the course of the remaining program, as established by patient centered goals and guidelines, maintaining RPE 12-16. [] Resistance Training Introduce 8-15 bilateral upper extremity resistance exercise at 1-3 sets per lift, on 2-3 non-consecutive days using TheraBand/Weights to 8-15 reps on at lease 2 occasions, maintaining RPE 12-16. Once repetition maximum has been achieved, additional weight sets may be added. Hypertension: [x] Yes [] No Resting BP: 108/62 Peak Exercise BP: 134/62 BP Meds: Lopressor, Procardia XL Intervention: Home Exercise: Current Exercise - [] Yes - type/frequency/intensity/duration [x] No [] Resistance Training Progression: 20-60 minutes of aerobic exercise on at lease 2 non-rehab days. 8-12 bilateral upper extremity resistance exercise at 1-3 sets per lift, on 2 non-consecutive days using TheraBand/Free Weights/Weight Machine to 8-15 reps on at lease 2 occasions. Once repetition maximum has been achieved, additional weight sets may be added. Education: [x] Equipment [place] [] Understanding BP [x] S/S to report [x] Sodium [x] Warm up/ Cool down [] Exercise Prescription [x] RPE Scale [] Hot/Cold weather guidelines [x] Ex Safety [] Home Exercise [] Staying Fit [] Proper use weights/bands Target Goal: -Individual Exercise Plan -Resting BP <130/80 mmHg -Aerobic active 30 + minutes 5-7 days per week Nutrition Stages of Change: [] pre-contemplation [x] Action [] Contemplate [] Maintenance [] Prep [] Relapse Hyperlipidemia: [x] Yes [] No Lipid Meds: Lipitor Diabetes: [x] Yes [] No HbA1c: 10.1 (05/30/2022) FBS: 172 Glucose (mg/dL) Date Value 08/09/2022 93 [x] Monitor BS at home Frequency?: 2x daily Diabetes Medication: Farxiga Weight Management: Height: 5'4 Weight: 266.7 lbs BMI: 45.8 Wt Goal: BMI <45 Alcohol: Social History Substance and Sexual Activity Alcohol Use Yes Comment: socially Diet Assessment Tool: Food Diary/REAPS Diet Survey Special Diet: 2 gram NA+, reduced calorie, 30% total fat, <10% saturated fat, 25-35 grams fiber, < 200mg cholesterol, balanced nutrition Intervention: [] Dietitian Consult [] Referred to Diabetes Education Education: [] Heart Healthy Nutrition [] Weight Management [] Portions [] Fat/Cholesterol [] Food Labels [] Food Packaging Claims [] Snacks and Substitutes [] Relate Diabetes/CAD Target Goal: -LDL-C<100 if triglycerides are > 200 -LDL-C < 70 for high risk patients -HbA1c < 7% -BMI < 25 Education Stages of Change: [] pre-contemplation [x] Action [] Contemplate [] Maintenance [] Prep [] Relapse Learning Barriers: [] Speech [] Cognitive [] Literacy [] Vision [] Hearing [] Readiness to Learn [x] None Family support: [x] Yes [] No Tobacco use: Social History Tobacco Use Smoking Status Former Packs/day: 1.00 Years: 15.00 Pack years: 15.00 Types: Cigarettes Quit date: 09/13/2021 Years since quittin.9 Smokeless Tobacco Former Types: Snuff Quit date: 10/20/2019 Current smokers: Longest quit attempt: Tobacco triggers: Barriers to successful cessation: Ready to quit? [] Yes [] No [] Smoking cessation medication: Intervention: [] Referred to physician for smoking cessation [] Individual education and counseling [] Tobacco adjunct Education: [x] Cardiac A and P [] CAD/Interventions [] Risk Factors [] Angina [] Medications [] CHF Target Goal: -Complete cessation of tobacco use (if applicable) -Continued risk factor modifications -Recognizing signs/symptoms to report -Proper use of meds Psychosocial Stages of Change: [] pre-contemplation [] Action [] Contemplate [] Maintenance [] Prep [] Relapse Psychosocial Test: Tool Used: [place] Quality of Life/PHQ9 Intervention: [] Psych Consult/social service assistant [] Physician Referral Medications: Prozac Education: [] Stress Management [] Depression Target Goal: -Assess presence or absence of depression using a valid screening tool. -Maximize coping skills. -Positive support system. Preventative Medication: [x] Anticoagulant/Antiplatelet/Aspiri n [x] Betablocker /TYRON/ARB/Calcium channel ubaldo [x] Lipid medication [x] Diabetic medication [x] Antidepressant Medication Compliance (stated): [x] 100% [] 75% [] 50% [] 25% [] 0% Target Goal: -100% medication adherence Risk Stratification (of untoward event during exercise): [x] HIGH RISK LVEF < 40% Survivor of cardiac arrest or sudden cardiac Complex ventricular arrythmias (VT >6 beats, multifocal PVCs at rest or with exercise) Presence of angina or other significant symptoms (shortness of breath, light-headedness, or dizziness at <5 METs or during recovery TN or cardiac surgery complicated by cardiogenic shock, CHF, and/or s/s of post-procedure ischemia Abnormal hemodynamics with exercise, especially flat or decreasing systolic BP or chronotropic incompetence with ^ workload Significant silent ischemia (ST depression >/= 2mm without symptoms with exercise or in recovery Signs/symptoms including angina, dizziness, light-headedness or dyspnea with low exercise levels or in recovery Clinically significant depression Physically Inactive - <= 5 METs Implantable cardioverter defibrillator (ICD) At least 4 of below: Lipids LDL >130 / Cholesterol > 200 BP >160/100 BMI >30 Smoker who continues to smoke DM - HgbA1C >=7 [] MODERATE RISK LVEF 40-49% Mild to moderate level of silent ischemia during exercise testing or recovery (ST depression <2mm from baseline) Presence of stable angina or other significant symptoms (unusual shortness of breath, light-headedness, or dizziness occurring only at high level of exertion [>=7 METs]) Functional capacity 5.1-8.9 METs At least 2-3 of below: Lipids LDL 100-129 / Cholesterol 150-199 BP - systolic 130-159/diastolic 86-99 BMI >30 DM - HgbA1C 5.8-7.0 [] LOW RISK Rest LVEF >= 50% No resting or exercise induced complex dysrhythmias Uncomplicate TN, CABG, angioplasty, atherectomy, or stent Normal hemodynamic and EGC response with exercise and in recovery (appropriate increases and decreases in HR and SBP with increasing workloads and recovery Functional capacity >9 METs Absence of angina or other significant symptoms (unusual shortness of breath, light-headedness, or dizziness during exercise and recovery) Absence of complicated ventricular arrhythmias at rest Absence of HF Absence of signs/symptoms of post-event or post-procedure ischemia Absence of clinical depression Non-smoker 0-1 Uncontrolled risk factors Fall Risk Assessment: History of falls with or without injury [] Yes [x] No Use of ambulatory aid [] Yes [x] No Difficulty walking/impaired gait [] Yes [x] No Numbness in feet [] Yes [x] No Vision changes [x] Yes [] No Dizziness [x] Yes [] No Shortness of breath [x] Yes [] No Medications [x] Anticoagulant/Antiplatelet [x] Betablocker /TYRON/ARB/Calcium channel ubaldo [x] Antidepressant [] Seizure medication [] NA Risk of fall [] Low (none of above) [] Medium (less than 3 above) [x] High (3 or more above) Patient 90-Day Goals: (Specific, Measurable, Achievable, Relevant, and Time-Bound) Be able to move around without experiencing pain/angina. 30-Day Program Goals: Achieve and progress prescribed exercise frequency, intensity, time, and type based upon initial evaluation and submaximal graded exercise results as evidenced by the attaining and maintaining the prescribed target heart rate range, a Tamia rating of perceived exertion between 11 and 16, duration of 31 - 60 minutes using multiple exercise modes for at least 3 days/week, progressing at least 0.5-1.0 METs/week as tolerated, as evidenced by daily session reports and pre/post MET levels. Juan is working at an average of 2.86 METs. Introduce and progress 8-10 different bilateral UE and/or LE progressive resistance exercises focused on major muscle groups using 1-3 sets each per lift, on 2-3 non-consecutive days implementing free and machine weights and/or bands, as appropriate, with a resistance of 40-60% 1-repetition maximum or 10 -15 repetitions to progressive overload and increasing resistance once repetitions have progressed to 15 reps and feel fairly light on 2 prior occasions. Resistance training not introduced. Develop regular home aerobic exercise program for 20 - 60 minutes at least 2 non-rehab days per week, excluding 5 - 10 minutes warm-up and cool-down periods, as tracked on home workout log. No home exercise established over the past 30 days. Establish and maintain individualized heart healthy eating plan, and gradually lose 2-4 lb of body weight over the next 30 days, utilizing software integration developer recommendations, moderating nutrional intake, and performing regular aerobic and strength training exercises as prescribed, as evidenced by pre- and post-program nutriton survey and routine rounding with patient, food diary, and diet screening survey. Juan has maintained his weight of 266 pounds over the past 30 days. Strive for blood lipid optimization over the next 30 days with an LDL-C of <100 mg/dL or LDL 70 mg/dL, an HDL-C of > or = 40 mg/dL for men and > or = 50 mg/dL for women, and a triglyceride level of <150 mg/dL via lifestyle education, behavioral modification, and medication compliance, as evidenced by improved post-program lipid results. Not repeated. Strive for HbA1C <= 7.0% over the next 30 days, via lifestyle education, behavioral modification, and medication compliance as evidenced by post program HbA1C lab results. Not repeated. Achieve and maintain an optimal average resting blood pressure of <130 / 80 mmHg over the next 30 days by educating patient, monitoring medication compliance, introducing and maintaining regular cardiovascular exercise program as evidenced by routine BP monitoring. Resting SBP 100-110s and resting DBP 60s. Minimize self-reported psycho-social feelings of stress over the next 30 days by educating patient, monitoring medication compliance, introducing and maintaining regular cardiovascular exercise as evidenced by pre- and post- surveys and by routine rounding with patient. Demonstrate knowledge about risk factor reduction, lifestyle modification, and heart health strategies with a score of >=75% via education classes and counseling as evidenced by pre- and post-program education assessment screening tool. Participated in all education classes offered in the past 30 days. Complete abstinence from tobacco products over the next 30 days through intensive counseling, behavior modification, and medication compliance as evidenced by routine rounding with patient. Continues to vape. documented in this encounter [employer] Phone: 07-18-2022 History of Present illness Narrative Phase II Cardiac Rehab Individualized Treatment Plan - 30 Day Patient Name: Elias Walker Date: 07/15/2022 Diagnosis: CABG Onset Date: 06/02/2022 Referring Physician: Dr Purdy Session Number: 4 EXERCISE Stages of Change: [] pre-contemplation [x] Action [] Contemplate [] Maintenance [] Prep [] Relapse Exercise Prescription: Mode: [x] TM [x] B [x] STP [x] R [x] UBE Frequency: 3 days per week Duration: 31-60 minutes Intensity: 3.2-3.6 METs THRR: 139-161 bpm Progression: Based on risk stratification, may increase duration per F.I.T.T. protocol parameters on average 5-10 minutes every 1-2 weeks for the first 4-6 weeks. After 3-4 weeks completed, continue to gradually increase F.I.T.T. parameters gradually at the established duration on average 0.5-1.0 METs per 30 days over the course of the remaining program, as established by patient centered goals and guidelines, maintaining RPE 12-16. [x] Resistance Training Introduce 8-15 bilateral upper extremity resistance exercise at 1-3 sets per lift, on 2-3 non-consecutive days using TheraBand/Weights to 8-15 reps on at lease 2 occasions, maintaining RPE 12-16. Once repetition maximum has been achieved, additional weight sets may be added. Hypertension: [x] Yes [] No Resting BP: 118/64 Peak Exercise BP: 138/66 BP Meds: Lisinopril, Lasix, Lopressor, Procardia XL Intervention: Home Exercise: Current Exercise - [] Yes - type/frequency/intensity/duration [x] No [] Resistance Training Progression: 20-60 minutes of aerobic exercise on at lease 2 non-rehab days. 8-12 bilateral upper extremity resistance exercise at 1-3 sets per lift, on 2 non-consecutive days using TheraBand/Free Weights/Weight Machine to 8-15 reps on at lease 2 occasions. Once repetition maximum has been achieved, additional weight sets may be added. Education: [x] Equipment [place] [] Understanding BP [x] S/S to report [x] Sodium [x] Warm up/ Cool down [] Exercise Prescription [x] RPE Scale [] Hot/Cold weather guidelines [x] Ex Safety [] Home Exercise [] Staying Fit [] Proper use weights/bands Target Goal: -Individual Exercise Plan -Resting BP <130/80 mmHg -Aerobic active 30 + minutes 5-7 days per week Nutrition Stages of Change: [] pre-contemplation [x] Action [] Contemplate [] Maintenance [] Prep [] Relapse Hyperlipidemia: [x] Yes [] No Lipid Meds: Lipitor Diabetes: [x] Yes [] No HbA1c: (05/30/2022) 10.1% Glucose (mg/dL) Date Value 07/07/2022 106 (H) [x] Monitor BS at home Frequency?: 2X daily Diabetes Medication: Farxiga Weight Management: Height: 64 inches Weight: 267 lb BMI: 45.8 Wt Goal: <150 lb Alcohol: Social History Substance and Sexual Activity Alcohol Use Yes Comment: socially Diet Assessment Tool: Food Diary/REAPS Diet Survey Special Diet: 2 gram NA+, diabetic, reduced calorie, 30% total fat, <10% saturated fat, 25-35 grams fiber, < 200mg cholesterol, balanced nutrition Intervention: [] Dietitian Consult - pending [] Referred to Diabetes Education Education: [] Heart Healthy Nutrition [] Weight Management [] Portions [] Fat/Cholesterol [] Food Labels [] Food Packaging Claims [] Snacks and Substitutes [] Relate Diabetes/CAD Target Goal: -LDL-C<100 if triglycerides are > 200 -LDL-C < 70 for high risk patients -HbA1c < 7% -BMI < 25 Education Stages of Change: [] pre-contemplation [x] Action [] Contemplate [] Maintenance [] Prep [] Relapse Learning Barriers: [] Speech [] Cognitive [] Literacy [] Vision [] Hearing [] Readiness to Learn [x] None Family support: [x] Yes [] No Tobacco use: Social History Tobacco Use Smoking Status Former Packs/day: 1.00 Years: 15.00 Pack years: 15.00 Types: Cigarettes Quit date: 09/13/2021 Years since quittin.8 Smokeless Tobacco Former Types: Snuff Quit date: 10/20/2019 Current smokers: Longest quit attempt: Tobacco triggers: Barriers to successful cessation: Ready to quit? [] Yes [] No [] Smoking cessation medication: Vaping Intervention: [] Referred to physician for smoking cessation [] Individual education and counseling [] Tobacco adjunct Education: [x] Cardiac A and P [] CAD/Interventions [] Risk Factors [] Angina [] Medications [] CHF Target Goal: -Complete cessation of tobacco use (if applicable) -Continued risk factor modifications -Recognizing signs/symptoms to report -Proper use of meds Psychosocial Stages of Change: [] pre-contemplation [x] Action [] Contemplate [] Maintenance [] Prep [] Relapse Psychosocial Test: Tool Used: [place] Quality of Life/PHQ9 Intervention: [] Psych Consult/social service assistant [] Physician Referral Medications: Education: [] Stress Management [] Depression Target Goal: -Assess presence or absence of depression using a valid screening tool. -Maximize coping skills. -Positive support system. Preventative Medication: [x] Anticoagulant/Antiplatelet/Aspiri n [x] Betablocker /TYRON/ARB/Calcium channel ubaldo [x] Lipid medication [x] Diabetic medication [x] Antidepressant Medication Compliance (stated): [x] 100% [] 75% [] 50% [] 25% [] 0% Target Goal: -100% medication adherence Risk Stratification (of untoward event during exercise): [x] HIGH RISK LVEF < 40% Survivor of cardiac arrest or sudden cardiac Complex ventricular arrythmias (VT >6 beats, multifocal PVCs at rest or with exercise) Presence of angina or other significant symptoms (shortness of breath, light-headedness, or dizziness at <5 METs or during recovery TN or cardiac surgery complicated by cardiogenic shock, CHF, and/or s/s of post-procedure ischemia Abnormal hemodynamics with exercise, especially flat or decreasing systolic BP or chronotropic incompetence with ^ workload Significant silent ischemia (ST depression >/= 2mm without symptoms with exercise or in recovery Signs/symptoms including angina, dizziness, light-headedness or dyspnea with low exercise levels or in recovery Clinically significant depression Physically Inactive - <= 5 METs Implantable cardioverter defibrillator (ICD) At least 4 of below: Lipids LDL >130 / Cholesterol > 200 BP >160/100 BMI >30 Smoker who continues to smoke DM - HgbA1C >=7 [] MODERATE RISK LVEF 40-49% Mild to moderate level of silent ischemia during exercise testing or recovery (ST depression <2mm from baseline) Presence of stable angina or other significant symptoms (unusual shortness of breath, light-headedness, or dizziness occurring only at high level of exertion [>=7 METs]) Functional capacity 5.1-8.9 METs At least 2-3 of below: Lipids LDL 100-129 / Cholesterol 150-199 BP - systolic 130-159/diastolic 86-99 BMI >30 DM - HgbA1C 5.8-7.0 [] LOW RISK Rest LVEF >= 50% No resting or exercise induced complex dysrhythmias Uncomplicate TN, CABG, angioplasty, atherectomy, or stent Normal hemodynamic and EGC response with exercise and in recovery (appropriate increases and decreases in HR and SBP with increasing workloads and recovery Functional capacity >9 METs Absence of angina or other significant symptoms (unusual shortness of breath, light-headedness, or dizziness during exercise and recovery) Absence of complicated ventricular arrhythmias at rest Absence of HF Absence of signs/symptoms of post-event or post-procedure ischemia Absence of clinical depression Non-smoker 0-1 Uncontrolled risk factors Fall Risk Assessment: History of falls with or without injury [] Yes [x] No Use of ambulatory aid [] Yes [x] No Difficulty walking/impaired gait [] Yes [x] No Numbness in feet [] Yes [x] No Vision changes [x] Yes [] No Dizziness [x] Yes [] No Shortness of breath [x] Yes [] No Medications [x] Anticoagulant/Antiplatelet [x] Betablocker /TYRON/ARB/Calcium channel ubaldo [x] Antidepressant [] Seizure medication [] NA Risk of fall [] Low (none of above) [] Medium (less than 3 above) [x] High (3 or more above) Patient 90-Day Goals: (Specific, Measurable, Achievable, Relevant, and Time-Bound) Be able to move around without experiencing pain/angina . Goal in progress. 30-Day Program Goals: Achieve and progress prescribed exercise frequency, intensity, time, and type based upon initial evaluation and submaximal graded exercise results as evidenced by the attaining and maintaining the prescribed target heart rate range, a Tamia rating of perceived exertion between 11 and 16, duration of 31 - 60 minutes using multiple exercise modes for at least 3 days/week, progressing at least 0.5-1.0 METs/week as tolerated, as evidenced by daily session reports and pre/post MET levels. Juan achieved a FC improvement of 36% over the past 30 days. Introduce and progress 8-10 different bilateral UE and/or LE progressive resistance exercises focused on major muscle groups using 1-3 sets each per lift, on 2-3 non-consecutive days implementing free and machine weights and/or bands, as appropriate, with a resistance of 40-60% 1-repetition maximum or 10 -15 repetitions to progressive overload and increasing resistance once repetitions have progressed to 15 reps and feel fairly light on 2 prior occasions. Resistance training not initiated yet. Develop regular home aerobic exercise program for 20 - 60 minutes at least 2 non-rehab days per week, excluding 5 - 10 minutes warm-up and cool-down periods, as tracked on home workout log. No regular home exercise reported over the past 30 days. Establish and maintain individualized heart healthy eating plan and gradually lose 2-4 lb of body weight over the next 30 days utilizing software integration developer recommendations, including: Limit sodium to less than 2,000 mg every day (added salt and hidden sodium combined). Include a minimum of 2 servings of non starchy vegetables such as broccoli, cauliflower, green beans, carrots, etc. every day (1/2 cup cooked, 1 cup raw). Add 3 servings of fruit every day (fresh, frozen, or canned in lite syrup or own juice). Drink 64 oz water every day. Include sources of whole grains in daily diet (whole wheat bread, buns, [place] muffins, brown rice, whole wheat pasta, etc.). 6. Limit cheese to 1 oz serving size, choose white cheeses for lower sodium, lower fat option such as mozzarella, provolone, etc. 7. Avoid foods high in fat such as tolbert, hot dogs, pepperoni, sausage, fried foods, desserts, etc. 8. Eat 3 well balanced meals with a variety of lean meats, fresh fruits, vegetables, whole grains and low fat dairy. 9. Limit added sugars to less than 37.5 grams each day. 10. Choose unsweetened beverages such as water, tea, etc. For fluids. 11. Choose baked, broiled, or grilled options when preparing meals at home or dining out. As well as moderating nutrional intake, and performing regular aerobic and strength training exercises as prescribed, as evidenced by pre- and post-program nutriton survey and routine rounding with patient, food diary, and diet screening survey. Juan maintained a weight of ~ 265 over the past 30 days. Strive for blood lipid optimization over the next 30 days with an LDL-C of <100 mg/dL or LDL 70 mg/dL, an HDL-C of > or = 40 mg/dL, and a triglyceride level of <150 mg/dL via lifestyle education, behavioral modification, and medication compliance, as evidenced by improved post-program lipid results. Lipids not repeated over the past 30 days. Strive for HbA1C <= 7.0% over the next 30 days, via lifestyle education, behavioral modification, and medication compliance as evidenced by post program HbA1C lab results. HbA1C not repeated over the past 30 days. Achieve and maintain an optimal average resting blood pressure of <130 / 80 mmHg over the next 30 days by educating patient, monitoring medication compliance, introducing and maintaining regular cardiovascular exercise program as evidenced by routine BP monitoring. Resting SBP 110-130s and resting DBP 60-80s over the past 30 days. Minimize self-reported psycho-social feelings of stress over the next 30 days by educating patient, monitoring medication compliance, introducing and maintaining regular cardiovascular exercise as evidenced by pre- and post- surveys and by routine rounding with patient. Denied ^ depressive symptoms and stress over the past 30 days. Demonstrate knowledge about risk factor reduction, lifestyle modification, and heart health strategies with a score of >=75% via education classes and counseling as evidenced by pre- and post-program education assessment screening tool. Participated in all education classes offered over the past 30 days. Complete abstinence from tobacco products over the next 30 days through intensive counseling, behavior modification, and medication compliance as evidenced by routine rounding with patient. Continued to vape over the past 30 days. documented in this encounter [facility] [employer] Phone: 07-04-2022 History of Present illness Narrative Cardiopulmonary Rehab Medical Nutrition Therapy Food Diary Evaluation Patient Name: Elias Brandin Registered Dietitian: EMMA MIRAMONTES RD, LD, RDN, LD Date: 06/30/2022 Dear Elias, Thank you for sharing your information about your eating patterns, it serves not only to help me see what you are eating, but you as well. Eating 3 meals a day is great way to start, I am pleased to see that you are doing that. Whole grains, fruits and vegetables, along with lean meats and low fat dairy are the cornerstones of your health. It was good to see you are making some healthful choices by eating veggie burgers, humus, veggie chips, and whole grain bread. A few suggested changes: instead of pop tarts (400 calories, 13 grams total fat, 4.5 grams saturated fat, 68 grams total carbohydrate, 29 grams added sugars, and 340 mg sodium) choose something else such as whole grain toast with peanut butter with an orange and 1 cup 1% milk or low fat yogurt instead. Consider having baked chicken, with a baked potato, salad, and water to drink instead of fried chicken chunks and Gingerale. Instead of having chocolate soft serve with oreo crumbles consider having a small chocolate ice cream cone or ice cream in a dish without the added cookie topping. Oreo's are high in hidden fat and added sugars. I did not notice any fruits or vegetables on your food diary, try adding more of them to your daily diet. With that in mind, look below for some suggestions. Your REAPS Score was: 29, which means: there are some ways you can make your eating habits healthier Recommendations from the Dietitian based on your RYP and Food Diary / activity record to improve health and decrease risk factors Limit sodium to less than 2,000 mg every day (added salt and hidden sodium combined). Include a minimum of 2 servings of non starchy vegetables such as broccoli, cauliflower, green beans, carrots, etc. every day (1/2 cup cooked, 1 cup raw). Add 3 servings of fruit every day (fresh, frozen, or canned in lite syrup or own juice). Drink 64 oz water every day. Include sources of whole grains in daily diet (whole wheat bread, buns, [place] muffins, brown rice, whole wheat pasta, etc.). 6. Limit cheese to 1 oz serving size, choose white cheeses for lower sodium, lower fat option such as mozzarella, provolone, etc. 7. Avoid foods high in fat such as tolbert, hot dogs, pepperoni, sausage, fried foods, desserts, etc. 8. Include 150 minutes of physical activity weekly. 9. Eat 3 well balanced meals with a variety of lean meats, fresh fruits, vegetables, whole grains and low fat dairy. 10. Limit added sugars to less than 37.5 grams each day. 11. Choose unsweetened beverages such as water, tea, etc. For fluids. 12. Choose baked, broiled, or grilled options when preparing meals at home or dining out. If there are many things to change, try making change with one recommendation, then move on from there. Recommendations are based on guidelines from the [place] [employer], [place] [employer] and current literature. Feel free to call with questions or concerns [phone] or [phone], LD RDN, ANKIT documented in this encounter [facility] [employer] Phone: 06-06-2022 History of Present illness Narrative Images from the original note were not included. Renal Progress Note Patient : Elias Walker; 36 y.o. Location: Attending: Ariel Purdy MD Admit Date: 05/23/2022 Hospital Day: 14 Subjective: Patient seen and examined. Patient was seen and examined. Patient was sitting comfortably in the chair. He is awaiting his ride as he is being discharged today. PT is in progress. No function continues to improve. The patient had a creatinine of 2.1 at admission and it went down and then went up postoperatively to 2.68 and now back down to 2 mg/DL today. His lowest creatinine during the hospitalization was 1.4. Pattern is as follows Latest Reference Range & Units 06/02/22 18:35 06/03/22 04:21 06/03/22 18:42 06/04/22 08:56 06/05/22 03:50 Creatinine 0.70 - 1.20 mg/dL 1.94 (H) 2.15 (H) 2.68 (H) 2.35 (H) 2.28 (H) Creatinine is improving after reaching a peak of 2.68 Blood pressure remains under good control. 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 Denies much chest discomfort or coughing. Mild edema of the extremities. History of obesity with no belly pain today. No nausea or vomiting. He is awaiting discharge. Outpatient Medications: Medications Prior to Admission: Cholecalciferol (VITAMIN D3) 125 MCG (5000 UT) TABS, Take 1 tablet by mouth lisinopril (PRINIVIL;ZESTRIL) 5 MG tablet, Take 5 mg by mouth daily FLUoxetine (PROZAC) 10 MG tablet, Take 10 mg by mouth daily fluticasone (VERAMYST) 27.5 MCG/SPRAY nasal spray, 2 sprays by Each Nostril route daily cetirizine (ZYRTEC) 10 MG tablet, Take 10 mg by mouth daily [DISCONTINUED] carvedilol (COREG) 25 MG tablet, Take 1 tablet by mouth in the morning and 1 tablet before bedtime. NIFEdipine (PROCARDIA XL) 30 MG extended release tablet, Take 1 tablet by mouth daily Current Medications: Scheduled Meds: metoprolol tartrate 25 mg Oral BID amiodarone 200 mg Oral BID tamsulosin 0.4 mg Oral Daily sodium chloride flush 5-40 mL IntraVENous 2 times per day aspirin 81 mg Oral Daily clopidogrel 75 mg Oral Daily mupirocin Each Nostril BID polyethylene glycol 17 g Oral Daily sennosides-docusate sodium 1 tablet Oral BID atorvastatin 20 mg Oral Nightly pantoprazole 40 mg Oral Daily insulin glargine 0.15 Units/kg SubCUTAneous Nightly insulin lispro 0-6 Units SubCUTAneous TID WC insulin lispro 0-3 Units SubCUTAneous Nightly Continuous Infusions: sodium chloride 50 mL/hr at 06/03/22 0043 sodium chloride 25 mL/hr at 06/03/22 0043 propofol Stopped (06/02/223) dextrose Input/Output: I/O last 3 completed shifts: In: 700 [P.O.:700] Out: 2450 [Urine:2390; Chest Tube:60]. Patient Vitals for the past 96 hrs (Last 3 readings): Weight 06/05/22 0600 283 lb 11.7 oz (128.7 kg) 06/04/22 0722 282 lb 3 oz (128 kg) Vital Signs: Temperature: Temp: 98 F (36.7 C) TMax: Temp (24hrs), Av F (36.7 C), Min:97.9 F (36.6 C), Max:98.4 F (36.9 C) Respirations: Resp: 18 Pulse: Heart Rate: 95 BP: BP: 122/65 BP Range: Systolic (24hrs), Av , Min:120 , Max:140 Diastolic (24hrs), Av, Min:65, Max:92 Physical Examination: General: Awake and alert x3 HEENT: Moist mucous membranes, normocephalic Eyes: Pale conjunctiva, no icterus Neck: Supple, midline trachea, no accessory muscle use Chest: Sternotomy. Bilateral vesicular breath sounds, no rales or wheezes. Cardiac: S1 S2 RR, no murmurs, gallops or rubs. Abdomen: Soft, obese, not tender, no masses, BS audible. : No suprapubic or flank tenderness. Neuro: AAO x 3, No FND. SKIN: No rashes, good skin turgor. Extremities: Mild bilateral lower extremity edema Labs: Latest Reference Range & Units 06/04/22 08:56 Sodium 135 - 144 mmol/L 134 (L) Potassium 3.7 - 5.3 mmol/L 4.9 Chloride 98 - 107 mmol/L 102 CO2 20 - 31 mmol/L 21 BUN,BUNPL 6 - 20 mg/dL 24 (H) Creatinine 0.70 - 1.20 mg/dL 2.35 (H) Anion Gap 9 - 17 mmol/L 11 Calcium, Ionized 1.13 - 1.33 mmol/L 1.28 Est, Glom Filt Rate >60 mL/min/1.73m2 36 (L) Magnesium 1.6 - 2.6 mg/dL 2.2 Glucose, Random 70 - 99 mg/dL 192 (H) MARIO: Lab Results Component Value Date/Time MARIO NEGATIVE 08/30/2021 10:34 AM SPEP: Lab Results Component Value Date/Time PROT 7.7 10/06/2021 11:32 AM ALBCAL 3.1 09/02/2021 12:25 PM ALBPCT 53 09/02/2021 12:25 PM LABALPH 0.4 09/02/2021 12:25 PM LABALPH 0.8 09/02/2021 12:25 PM A1PCT 7 09/02/2021 12:25 PM A2PCT 13 09/02/2021 12:25 PM LABBETA 0.9 09/02/2021 12:25 PM BETAPCT 16 09/02/2021 12:25 PM GAMGLOB 0.7 09/02/2021 12:25 PM GGPCT 11 09/02/2021 12:25 PM PATH ELECTRONICALLY SIGNED. ZOE STERN M.D. 09/02/2021 12:25 PM PATH ELECTRONICALLY SIGNED. ZOE STERN M.D. 09/02/2021 12:25 PM C3: Lab Results Component Value Date/Time C3 183 09/02/2021 12:25 PM C4: Lab Results Component Value Date/Time C4 29 09/02/2021 12:25 PM MPO ANCA: Lab Results Component Value Date/Time MPO <0.3 08/30/2021 10:34 AM PR3 ANCA: Lab Results Component Value Date/Time PR3 0.9 08/30/2021 10:34 AM Hep BsAg: Lab Results Component Value Date/Time HEPBSAG NONREACTIVE 09/02/2021 12:25 PM Hep C AB: Lab Results Component Value Date/Time HEPCAB NONREACTIVE 09/02/2021 12:25 PM Urinalysis/Chemistries: Lab Results Component Value Date/Time NITRU NEGATIVE 05/30/2022 08:30 PM COLORU Yellow 05/30/2022 08:30 PM PHUR 5.5 05/30/2022 08:30 PM WBCUA 0 TO 2 05/30/2022 08:30 PM RBCUA 0 TO 2 05/30/2022 08:30 PM SPECGRAV 1.019 05/30/2022 08:30 PM LEUKOCYTESUR NEGATIVE 05/30/2022 08:30 PM UROBILINOGEN Normal 05/30/2022 08:30 PM BILIRUBINUR NEGATIVE 05/30/2022 08:30 PM GLUCOSEU 3+ 05/30/2022 08:30 PM KETUA NEGATIVE 05/30/2022 08:30 PM Urine Creatinine: Lab Results Component Value Date/Time LABCREA 123.3 05/23/2022 02:21 AM Radiology: Reviewed. Assessment: Acute kidney injury: Improving now after reaching a peak of 2.68 and now slowly improving, down to 2 mg/DL today. NSTEMI- status post cardiac catheterization on 05/26/2022 found to have multivessel coronary disease, for Which on 06/02/2022. Patient is slowly recovering from surgery, still has chest tubes as well as Stone catheter CKD 3 likely due to diabetic and hypertensive nephrosclerosis baseline creatinine of around 1.2-1.5 mg/dl. Creatinine did get down to 1.4 on this admission but went back up to 2.68 but now is trending down again to 2 mg/DL Hypertension. Pressure is under good control Hypercalcemia: Last 3 calcium levels are within normal limits patient is not on Sensipar. History of proteinuria. Diabetes mellitus type 2. Ischemic cardiopathy with a EF of 35% as per 2D echo done in August 2021. For sleep apnea. History of CVA. Cystic appearing lesion measuring 3.0 cm in the right kidney as per renal ultrasound done on 05/23/2022. Patient does have an outpatient urology appointment with Dr. Victoria in in [place] on 06/21/2022 and will follow-up about his renal cysts there. Plan: No changes in medication Stable for discharge from nephrology standpoint Come back to see [facility] at our [place] office in 2 to 3 weeks. I did give the patient our office number to set that up. Nutrition Avoid nephrotoxic drugs/contrast exposure. . Uriel Grier MD Nephrology Attending Physician [facility] 06/06/2022 This note is created with the assistance of a speech-recognition program. While intending to generate a document that actually reflects the content of the visit, no guarantees can be provided that every mistake has been identified and corrected by editing. CLINICAL PHARMACY NOTE: MEDS TO BEDS Total # of Prescriptions Filled: 9 The following medications were delivered to the patient: Aspirin Atorvastatin Metoprolol Clopidogrel Percocet Pantoprazole Amiodarone Flomax miralax Additional Documentation: Nutrition Assessment Type and Reason for Visit: Reassess Nutrition Recommendations/Plan: Continue current diet Provide Diabetes education as needed Monitor weight, labs and intake Malnutrition Assessment: Malnutrition Status: No malnutrition Nutrition Assessment: Patient seen for follow up. He is s/p CABG 06/02. Reports he is eating well, appetite has returned following surgery. Patient with no questions r/t diabetic diet at this time. glucose 133-175. Meds reviewed Estimated Daily Nutrient Needs: Energy (kcal): 2500 kcals/day Weight Used for Energy Requirements: Admission Protein (g): 100-130 gm pro/day Weight Used for Protein Requirements: [place] Fluid (ml/day): per MD Method Used for Fluid Requirements: Other (Comment) Nutrition Related Findings: Labs/meds reviewed Wound Type: None Current Nutrition Therapies: ADULT DIET; Regular Anthropometric Measures: Height: 5' 4 (162.6 cm) Current Body Wt: 283 lb 11.7 oz (128.7 kg) BMI: 48.7 Nutrition Diagnosis: Altered nutrition-related lab values related to endocrine dysfuntion (newly diagnosed DM) as evidenced by lab values (hyperglycemia upon admission) Nutrition Interventions: Food and/or Nutrient Delivery: Continue Current Diet Nutrition Education/Counseling: No recommendation at this time Coordination of Nutrition Care: Continue to monitor while inpatient Plan of Care discussed with: Patient Goals: Previous Goal Met: Goal(s) Achieved Goals: Meet at least 75% of estimated needs, prior to discharge Nutrition Monitoring and Evaluation: Behavioral-Environmental Outcomes: None Identified Food/Nutrient Intake Outcomes: Food and Nutrient Intake Physical Signs/Symptoms Outcomes: Biochemical Data, GI Status, Weight, Skin, Nutrition Focused Physical Findings Discharge Planning: Recommend pursue outpatient diabetes education Linda Alvarado RD Contact: [phone] Images from the original note were not included. Susan Sales Account Executive Progress Note Date: 06/04/2022 Patient name: Elias Walker Date of admission: 05/23/2022 12:00 PM Date of : 1985 PCP: Jose Khanna, DIRECTOR SOCIAL SERVICE - RECREATION SUPERVISOR Reason for Admission: NSTEMI (non-ST elevated myocardial infarction) (HCC) [I21.4] Subjective: Patient seen and examined. Denies chest pain or shortness of breath. Tele/vitals/labs reviewed . Sitting up in chair Medications: Scheduled Meds: metoprolol tartrate 25 mg Oral BID amiodarone 200 mg Oral BID tamsulosin 0.4 mg Oral Daily sodium chloride flush 5-40 mL IntraVENous 2 times per day aspirin 81 mg Oral Daily clopidogrel 75 mg Oral Daily mupirocin Each Nostril BID polyethylene glycol 17 g Oral Daily sennosides-docusate sodium 1 tablet Oral BID atorvastatin 20 mg Oral Nightly pantoprazole 40 mg Oral Daily insulin glargine 0.15 Units/kg SubCUTAneous Nightly insulin lispro 0-6 Units SubCUTAneous TID WC insulin lispro 0-3 Units SubCUTAneous Nightly Continuous Infusions: sodium chloride 50 mL/hr at 06/03/22 0043 sodium chloride 25 mL/hr at 06/03/22 0043 propofol Stopped (06/02/222212) dextrose CBC: Recent Labs 06/04/22 0856 06/05/22 0350 06/06/22 0728 WBC 15.0* 11.8* 11.3 HGB 11.9* 10.3* 10.1* PLT 196 179 243 BMP: Recent Labs 06/04/22 0856 06/05/22 0350 06/06/22 0728 NA 134* 132* 132* K 4.9 4.8 4.3 CL 102 102 99 CO2 21 22 21 BUN 24* 23* 27* CREATININE 2.35* 2.28* 2.01* GLUCOSE 192* 150* 144* Hepatic:No results for input(s): AST, ALT, ALB, BILITOT, ALKPHOS in the last 72 hours. Troponin: No results for input(s): TROPHS in the last 72 hours. BNP: No results for input(s): BNP in the last 72 hours. Lipids: No results for input(s): CHOL, HDL in the last 72 hours. Invalid input(s): LDLCALCU INR: Recent Labs 06/04/22 0856 INR 1.2 EKG: Date: 05/24/22 Reading: Normal sinus rhythm Nonspecific ST and T wave abnormality Abnormal ECG When compared with ECG of 23-MAY-2022 13:07, No significant change was found LAST ECHO: Date: 09/02/2021 Findings Summary: The study was performed by the Rn Acute Care, Cardiac Fellow, and the Acid Wash Operator in the Lens Coater without complications. Consent was obtained from the family. The patient tolerated the procedure well. Conscious sedation was used. No clots were visualized in the left atrial appendage. Estimated ejection fraction is 50% No valvular vegetations or thrombus were identified Echo 05/25/22 Summary Left ventricle is normal in size with increased septal wall thickness. Definity was utilized to better visualize endocardial boarders. Calculated EF via Lara's method (with Definity) is 68%. Evidence of diastolic dysfunction. Mitral valve sclerosis without stenosis. Mitral annular calcification is seen. Trivial tricuspid regurgitation. Estimated right ventricular systolic pressure is 36 mmHg. Cardiac Cath 05/27/22 Findings: LMCA: Diffuse irregularities 20-30%. LAD: Multiple stenosis. Lesion on Prox LAD: 90% stenosis. Lesion on Mid LAD: 80% stenosis. Lesion on Dist LAD: 80% stenosis. LCx: Single stenosis. Lesion on Prox CX: 70% stenosis. RCA: Multiple stenosis. Lesion on Mid RCA: 90% stenosis. Lesion on R PDA: Ostial.80% stenosis. Coronary Tree Dominance: Right LV Analysis LV function assessed as:Normal. The LV gram was performed in the SALDANA 30 position. LVEF: 60%. Conclusions: Multi-vessel Coronary Artery Disease. Normal LV systolic function. Recommendations CTS consult for CABG. Medical therapy as needed. Risk factor modification. Objective: Vitals: BP (!) 140/81 Pulse 86 Temp 97.9 F (36.6 C) (Oral) Resp 18 Ht 5' 4 (1.626 m) Wt 283 lb 11.7 oz (128.7 kg) SpO2 97% BMI 48.70 kg/m General appearance: alert and cooperative with exam HEENT: Head: Normocephalic, no lesions, without obvious abnormality. Neck:no JVD, trachea midline, no adenopathy Lungs: Clear to auscultation, dim throughout. Heart: Regular rate and rhythm, s1/s2 auscultated, no murmurs, SR Abdomen: soft, non-tender, bowel sounds active,morbidly obese Extremities: + edema LE Neurologic: not done Assessment / Acute Cardiac Problems: NSTEMI status postcardiac cath showing multivessel CAD status post CABG on 06/02/22 Will need staged PCI to RCA, unable to bypass due to lack of conduit Preserved LV systolic function HTN urgency-resolved OZZIE on CKD3 Morbid obesity DM2 Hyponatremia Plan of Treatment: Amiodarone 200 mg BID. Monitor on telemetry. Continue on DAPT; aspirin and Plavix Continue statin and Lopressor Cardiac Rehab start in patient Tight glycemic control as per surgery OZZIE per nephrology Will need staged PCI to RCA but need nephrology clearance prior to possible intervention. Nephrology recommending to hold off at this time, will follow and evaluate. Can be done prior to discharge or as outpatient as patient leaning towards outpatient . Gates Sales Account Executive [phone] Occupational Therapy Facility/Department: [facility]- [facility] Occupational Daily Treatment Note Name: Elias Walker : 1985 Date of Service: 06/05/2022 Discharge Recommendations: Patient would benefit from continued therapy after discharge Patient Diagnosis(es): There were no encounter diagnoses. Past Medical History: has a past medical history of CKD (chronic kidney disease), stage III (HCC), Dilated cardiomyopathy (HCC), Hypertension, Persistent proteinuria, Priapism, unspecified, and Primary hypertension. Past Surgical History: has a past surgical history that includes Penis surgery (01/31/2016); Cardiac catheterization (05/26/2022); and Coronary artery bypass graft (N/A, 06/02/2022). Assessment Performance deficits / Impairments: Decreased functional mobility ;Decreased ADL status;Decreased high-level IADLs;Decreased endurance;Decreased safe awareness;Decreased strength Prognosis: Good Activity Tolerance Activity Tolerance: Patient Tolerated treatment well Plan Occupational Therapy Plan Times Per Week: 4-6x/wk Current Treatment Recommendations: Strengthening, Balance training, Functional mobility training, Endurance training, Safety education & training, Positioning, Equipment evaluation, education, & procurement, Patient/Caregiver education & training, Self-Care / ADL, Home management training Restrictions Restrictions/Precautions Restrictions/Precautions: Cardiac, Up as Tolerated Required Braces or Orthoses?: Yes Required Braces or Orthoses Other: Heart Hugger Brace Position Activity Restriction Sternal Precautions: No Pulling, 5# Lifting Restrictions, No Pushing Other position/activity restrictions: ambulate patient, up in chair; s/p CABG x2 06/03/22, 3L NC, stone, chest tube Pain assessment: Pt c/o pain 5/110 incision Pain intervention: Repositioned Subjective General Patient assessed for rehabilitation services?: Yes Family / Caregiver Present: No Safety Devices Type of Devices: All fall risk precautions in place;Call light within reach;Gait belt;Nurse notified;Left in chair Balance Sitting: Without support (Supervision seated in chair.) Standing: With support (CGA static standing at chair using RW, functional mobility to/from bathroom using RW, simple grooming standing at sink. Total time 8 minutes.) Gait Overall Level of Assistance: Contact-guard assistance;Additional time Assistive Device: Gait belt;Walker, rolling ADL Feeding: Independent;Beverage management Grooming: Setup;Increased time to complete;Supervision (Oral care standing at sink.) UE Bathing: Setup;Increased time to complete;Supervision (Wash face/hands standing at sink.) Additional Comments: Pt seated in chair upon therapist arrival. Pt educated on sternal precautions and heart hugger wth good return. Pt educated on incentive spirometer, pt verbalized/demo understanding. Sit/stand transfer from chair using RW for static standing. Functional mobility to bathroom using RW. Simple grooming completed standing at sink. Pt exited bathroom to return to seated in chair. Pt stated bathing earlier this day with RN. Pt educated on pursed lip breathing during functional activity when experiencing times of SOB/fatigue, pt verbalized understanding. Pt seated in chair at end of session with all needs met. Transfers Sit to stand: Contact guard assistance Stand to sit: Stand by assistance Transfer Comments: Verbal cues for hand placement and use of heart hugger with good return. Cognition Overall Cognitive Status: WFL Orientation Overall Orientation Status: Within Functional Limits Education Given To: Patient Education Provided Comments: OT POC, transfer/walker safety, importance of participation in therapy, sternal precautions, heart hugger, incentive spirometer, pursed lip breathing with good return. AM-PAC Score AM-PAC Inpatient Daily Activity Raw Score: 16 (06/05/221330) AM-PAC Inpatient ADL T-Scale Score : 35.96 (06/05/221330) ADL Inpatient CMS 0-100% Score: 53.32 (06/05/221330) ADL Inpatient CMS G-Code Modifier : CK (06/05/221330) Goals Short Term Goals Time Frame for Short Term Goals: Patient will, by discharge Short Term Goal 1: demo UB ADLs at Mod I Short Term Goal 2: demo LB/toileting tasks using AE PRN to engage in ADLs safely Short Term Goal 3: demo 10+ min of dynamic standing tolerance at SBA using AE PRN to engage in ADLs Short Term Goal 4: demo 100% adherence to sternal precautions with engagement in functional tasks with 0 VCs Short Term Goal 5: demo functional transfers/mobility using LRD at Supervision to engage in ADLs safely Therapy Time Individual Concurrent Group Co-treatment Time In 1119 Time Out 1143 Minutes 24 Timed Code Treatment Minutes: 24 Minutes Pt seated in chair upon therapist arrival. Pleasant and agreeable to therapy. See above for LOF for all tasks. Pt retired to seated in chair at end of session with call light within reach. FERNANDA Christensen Images from the original note were not included. Susan Sales Account Executive Progress Note Date: 06/04/2022 Patient name: Elias Walker Date of admission: 05/23/2022 12:00 PM Date of : 1985 PCP: Jose Khanna APRN - RECREATION SUPERVISOR Reason for Admission: NSTEMI (non-ST elevated myocardial infarction) ([facility]) [I21.4] Subjective: Seen and examined by bedside. Acute overnight events. No symptoms reported by patient's. Participating in physical therapy this a.m. with no issues. Medications: Scheduled Meds: amiodarone 200 mg Oral BID tamsulosin 0.4 mg Oral Daily sodium chloride flush 5-40 mL IntraVENous 2 times per day aspirin 81 mg Oral Daily clopidogrel 75 mg Oral Daily mupirocin Each Nostril BID polyethylene glycol 17 g Oral Daily sennosides-docusate sodium 1 tablet Oral BID metoprolol tartrate 12.5 mg Oral BID atorvastatin 20 mg Oral Nightly pantoprazole 40 mg Oral Daily insulin glargine 0.15 Units/kg SubCUTAneous Nightly insulin lispro 0-6 Units SubCUTAneous TID WC insulin lispro 0-3 Units SubCUTAneous Nightly Continuous Infusions: sodium chloride 50 mL/hr at 06/03/22 0043 sodium chloride 25 mL/hr at 06/03/22 0043 propofol Stopped (06/02/22 2213) dextrose CBC: Recent Labs 06/03/22 04206/04/22 0856 06/05/22 0350 WBC 17.1* 15.0* 11.8* HGB 11.8* 11.9* 10.3* PLT 190 196 179 BMP: Recent Labs 06/03/22 1842 06/04/22 0856 06/05/22 0350 NA 130* 134* 132* K 5.1 4.9 4.8 CL 102 102 102 CO2 22 21 22 BUN 26* 24* 23* CREATININE 2.68* 2.35* 2.28* GLUCOSE 133* 192* 150* Hepatic:No results for input(s): AST, ALT, ALB, BILITOT, ALKPHOS in the last 72 hours. Troponin: No results for input(s): TROPHS in the last 72 hours. BNP: No results for input(s): BNP in the last 72 hours. Lipids: No results for input(s): CHOL, HDL in the last 72 hours. Invalid input(s): LDLCALCU INR: Recent Labs 06/02/22 1835 06/03/22 0421 06/04/22 0856 INR 1.3 1.1 1.2 EKG: Date: 05/24/22 Reading: Normal sinus rhythm Nonspecific ST and T wave abnormality Abnormal ECG When compared with ECG of 23-MAY-2022 13:07, No significant change was found LAST ECHO: Date: 09/02/2021 Findings Summary: The study was performed by the Rn Acute Care, Cardiac Fellow, and the Acid Wash Operator in the Lens Coater without complications. Consent was obtained from the family. The patient tolerated the procedure well. Conscious sedation was used. No clots were visualized in the left atrial appendage. Estimated ejection fraction is 50% No valvular vegetations or thrombus were identified Echo 05/25/22 Summary Left ventricle is normal in size with increased septal wall thickness. Definity was utilized to better visualize endocardial boarders. Calculated EF via Lara's method (with Definity) is 68%. Evidence of diastolic dysfunction. Mitral valve sclerosis without stenosis. Mitral annular calcification is seen. Trivial tricuspid regurgitation. Estimated right ventricular systolic pressure is 36 mmHg. Cardiac Cath 05/27/22 Findings: LMCA: Diffuse irregularities 20-30%. LAD: Multiple stenosis. Lesion on Prox LAD: 90% stenosis. Lesion on Mid LAD: 80% stenosis. Lesion on Dist LAD: 80% stenosis. LCx: Single stenosis. Lesion on Prox CX: 70% stenosis. RCA: Multiple stenosis. Lesion on Mid RCA: 90% stenosis. Lesion on R PDA: Ostial.80% stenosis. Coronary Tree Dominance: Right LV Analysis LV function assessed as:Normal. The LV gram was performed in the SALDANA 30 position. LVEF: 60%. Conclusions: Multi-vessel Coronary Artery Disease. Normal LV systolic function. Recommendations CTS consult for CABG. Medical therapy as needed. Risk factor modification. Objective: Vitals: BP 120/70 Pulse 87 Temp 97.7 F (36.5 C) (Oral) Resp 20 Ht 5' 4 (1.626 m) Wt 283 lb 11.7 oz (128.7 kg) SpO2 94% BMI 48.70 kg/m General appearance: alert and cooperative with exam HEENT: Head: Normocephalic, no lesions, without obvious abnormality. Neck:no JVD, trachea midline, no adenopathy Lungs: Clear to auscultation, dim throughout. Heart: Regular rate and rhythm, s1/s2 auscultated, no murmurs, SR Abdomen: soft, non-tender, bowel sounds active,morbidly obese Extremities: no edema Neurologic: not done Assessment / Acute Cardiac Problems: NSTEMI status postcardiac cath showing multivessel CAD status post CABG on 06/02/22 Will need staged PCI to RCA, unable to bypass due to lack of conduit Preserved LV systolic function HTN urgency-resolved OZZIE on CKD3 Morbid obesity DM2 Hyponatremia Plan of Treatment: Amiodarone 200 mg BID. Monitor on telemetry. Continue on DAPT; aspirin and Plavix Increase on Lopressor 25 mg twice daily Lipitor 80 mg po qd Cardiac Rehab start in patient Tight glycemic control as per surgery Will need staged PCI to RCA, likely next week prior to discharge. Will need nephrology clearance prior to possible intervention. Nephrology recommending to hold off at this time, will follow and evaluate. Can be done prior to discharge or as outpatient [employer] Sales Account Executive [email or web address]. [phone] Attending Physician Statement I have discussed the case of Elias Walker including pertinent history and exam findings with the student/resident/fellow. I have seen and examined the patient and the salguero elements of the encounter have been performed by me. I agree with the assessment, plan and orders as documented by the resident With changes made to the note. . Gates Sales Account Executive [phone] [facility] Cardiothoracic Surgery Progress Note 06/05/2022 11:25 AM Surgeon: Surgeon CTS: Dr. Jasmyn ANN POD # 3 S/P: Cabg x 2 Subjective: Mr. Walker Pt shows no acute distress.resting in bed A&0x4. Objective: BP 120/70 Pulse 87 Temp 98.2 F (36.8 C) (Oral) Resp 20 Ht 5' 4 (1.626 m) Wt 283 lb 11.7 oz (128.7 kg) SpO2 94% BMI 48.70 kg/m Chest: pacing wires: yes, chest tubes:yes, air leak no, 2 + CV: no murmur noted, Normal S1, S2, Lungs: clear to auscultation, no wheezes, rales, or rhonchi Abd: normal bowel sounds Lower Extremities: Trace edema Saph Incison: no sign of drainage or infection Sternal Incison: dressing applied-no excessive drainage or signs of infection noted CXR-stable. No pl effusion or pneumothorax present. Labs: Labs reviewed today CBC: Recent Labs 06/03/22 0421 06/04/22 0856 06/05/22 0350 WBC 17.1* 15.0* 11.8* HGB 11.8* 11.9* 10.3* HCT 36.3* 36.6* 32.3* MCV 90.5 91.7 92.6 PLT 190 196 179 BMP: Recent Labs 06/03/22 1842 06/04/22 0856 06/05/22 0350 NA 130* 134* 132* K 5.1 4.9 4.8 CL 102 102 102 CO2 22 21 22 BUN 26* 24* 23* CREATININE 2.68* 2.35* 2.28* I/O: I/O last 3 completed shifts: In: 340 [P.O.:340] Out: 2250 [Urine:1940; Chest Tube:310] Scheduled Meds: amiodarone 200 mg Oral BID tamsulosin 0.4 mg Oral Daily sodium chloride flush 5-40 mL IntraVENous 2 times per day aspirin 81 mg Oral Daily clopidogrel 75 mg Oral Daily mupirocin Each Nostril BID polyethylene glycol 17 g Oral Daily sennosides-docusate sodium 1 tablet Oral BID metoprolol tartrate 12.5 mg Oral BID atorvastatin 20 mg Oral Nightly pantoprazole 40 mg Oral Daily insulin glargine 0.15 Units/kg SubCUTAneous Nightly insulin lispro 0-6 Units SubCUTAneous TID WC insulin lispro 0-3 Units SubCUTAneous Nightly Continuous Infusions: sodium chloride 50 mL/hr at 06/03/22 0043 sodium chloride 25 mL/hr at 06/03/223 propofol Stopped (06/02/222212) dextrose PRN Meds:sodium chloride, sodium chloride flush, sodium chloride, ondansetron OR ondansetron, oxyCODONE-acetaminophen OR oxyCODONE-acetaminophen, fentanNYL OR fentanNYL, hydrALAZINE, sodium bicarbonate, diphenhydrAMINE, magnesium hydroxide, bisacodyl, potassium chloride, magnesium sulfate, ipratropium-albuterol, albumin human, albumin human, glucose, dextrose bolus OR dextrose bolus, glucagon (rDNA), dextrose Beta- Ubaldo: Yes Aspirin: Yes Lovenox: No GI: Yes Plavix: Yes Coumadin: No Statin: Yes TYRON: No Daily Nursing Care: Please keep SCDS in place as DVT prophylaxis If not intubated, Please have patient use IS and acapella 10X/hr or during commercial breaks Please continue BM management Daily labs and CXR Daily PT/OT and ambulation Continue with Case Management for DC planning Assessment/ Plan: 06-05-22 Remove stone today and bladder scan TID and perform PVRs (void trials) Remove chest tubes today Plan for DC tomorrow Needs to ambulate TID today Plan for home with [facility]-cardiology to have follow up for stent to RCA in 4-6weeks 06-04-22 Please leave stone one more day Started flomax Nephrology following to assist with renal function-patient making normal UO. Nephrology to manage diuretics We will eval for Ct removal tomorrow AM Please continue with PT OT DC planning home with [facility] Cardiology-this patient will need stent to RCA KENNETH WILLINGHAM NP Physical Therapy Facility/Department: [facility] 1- SICU Daily Treatment Note Name: Elias Walker : 1985 Date of Service: 06/05/2022 Discharge Recommendations: Patient would benefit from continued therapy after discharge PT Equipment Recommendations Equipment Needed: No Other: owns rollator Patient Diagnosis(es): There were no encounter diagnoses. Past Medical History: has a past medical history of CKD (chronic kidney disease), stage III (HCC), Dilated cardiomyopathy (HCC), Hypertension, Persistent proteinuria, Priapism, unspecified, and Primary hypertension. Past Surgical History: has a past surgical history that includes Penis surgery (01/31/2016); Cardiac catheterization (05/26/2022); and Coronary artery bypass graft (N/A, 06/02/2022). Assessment Body Structures, Functions, Activity Limitations Requiring Skilled Therapeutic Intervention: Decreased functional mobility ;Decreased ADL status;Decreased body mechanics;Decreased tolerance to work activity;Decreased strength;Decreased endurance;Decreased balance;Decreased high-level IADLs;Increased pain Assessment: Pt ambulated 250 ft with RW SBA/CGA on 3L NC with frequent static standing rest periods d/t endurance and SOB. Good use of heart hugger with sit<>stand transfers. Pt demonstrates decreased balance, endurance, functional mobility, and strength. At this time skilled PT is needed to promote return to baseline function. pt does appear they will be safe to return home with supervision and OP PT. Specific Instructions for Next Treatment: stair training; bring step to room Therapy Prognosis: Good Activity Tolerance Activity Tolerance: Patient tolerated treatment well;Patient limited by endurance Plan Physcial Therapy Plan General Plan: 6-7 times per week Specific Instructions for Next Treatment: stair training; bring step to room Current Treatment Recommendations: Strengthening, ROM, Balance training, Functional mobility training, Endurance training, Transfer training, Neuromuscular re-education, Stair training, Gait training, Manual, Therapeutic activities, Home exercise program, Safety education & training, Patient/Caregiver education & training, Equipment evaluation, education, & procurement Safety Devices Type of Devices: All fall risk precautions in place, Call light within reach, Gait belt, Nurse notified, Left in chair Restraints Restraints Initially in Place: No Restrictions Restrictions/Precautions Restrictions/Precautions: Cardiac, Up as Tolerated Required Braces or Orthoses?: Yes Required Braces or Orthoses Other: Heart Hugger Brace Position Activity Restriction Sternal Precautions: No Pulling, 5# Lifting Restrictions, No Pushing Other position/activity restrictions: ambulate patient, up in chair; s/p CABG x2 06/03/22, 3L NC, stone, chest tube Subjective General Chart Reviewed: Yes Response To Previous Treatment: Patient with no complaints from previous session. Family / Caregiver Present: No General Comment Comments: Pt retired to recliner with call light. Needs met. RN okay for pt off of suction with mobility. Subjective Subjective: RN and pt agreeable to PT. Pt in recliner upon arrival. Pt rated incision pain at 5/10 after mobility. Pt pleasant and cooperative. Vision/Hearing Vision Vision: Impaired Vision Exceptions: Wears glasses at all times Cognition Orientation Overall Orientation Status: Within Functional Limits Cognition Overall Cognitive Status: WFL Objective Bed mobility Supine to Sit: Unable to assess Sit to Supine: Unable to assess Bed Mobility Comments: in chair upon arrival, retired to chair at end of session. Pt able to scoot fwd to EOC with SBA. Pt required maxA x 2 to scoot back into recliner. Transfers Sit to Stand: Contact guard assistance;Stand by assistance Stand to Sit: Stand by assistance Comment: Assessed to RW with good use of heart hugger and breathing techniques. Ambulation Surface: Level tile Device: Rolling Walker Other Apparatus: O2 (3L NC) Assistance: Stand by assistance;Contact guard assistance Quality of Gait: B LE hip ER Gait Deviations: Increased DAGO;Slow Monique;Decreased step length;Decreased step height Distance: 250 ft Comments: Pt required several standing rest periods t/o ambulation d/t endurance. Balance Posture: Good Sitting - Static: Good Sitting - Dynamic: Good Standing - Static: Fair;+ Standing - Dynamic: Fair Comments: standing balance assessed with RW; Exercise Treatment: Seated LE exercise program: Long Arc Quads, hip abduction/adduction, heel/toe raises, and marches. Reps: and Upper extremity exercises: Bicep curl, shoulder flexion/extension to 90 degrees, punches, tricep curl, shoulder abduction/adduction to 90 degrees. Reps: x 10 reps with demo and verbal cues OutComes Score AM-PAC Score AM-PAC Inpatient Mobility Raw Score : 18 (06/05/22922) AM-PAC Inpatient T-Scale Score : 43.63 (06/05/22922) Mobility Inpatient CMS 0-100% Score: 46.58 (06/05/22922) Mobility Inpatient CMS G-Code Modifier : CK (06/05/22922) Goals Short Term Goals Time Frame for Short Term Goals: 14 visits Short Term Goal 1: pt will be IND with HEP and maintain sternal precautions 100% of time Short Term Goal 2: pt will be IND with transfers Short Term Goal 3: pt will be mod I for ambulation for 300' Short Term Goal 4: pt will complete at least 3 steps with L hand rain and CGA Short Term Goal 5: pt will demonstrate dynamic standing balance of at least good Education Patient Education Education Given To: Patient Education Provided: Role of Therapy;Plan of Care Education Method: Demonstration;Verbal Barriers to Learning: None Education Outcome: Verbalized understanding;Demonstrated understanding Therapy Time Individual Concurrent Group Co-treatment Time In 830 Time Out 921 Minutes 51 Timed Code Treatment Minutes: 49 Minutes LADONNA POSADA PTA Images from the original note were not included. Renal Progress Note Patient : Elias Walker; 36 y.o. Location: 1015/1015-01 Attending: Ariel Purdy MD Admit Date: 05/23/2022 Hospital Day: 13 Subjective: Patient seen and examined. Patient was seen and examined. Patient was sitting comfortably. He was able to walk more today without getting tired or short of breath. PT is in progress. Renal function renal functions are improving and most recent creatinine is slightly better as compared to yesterday Pattern is as follows Latest Reference Range & Units 06/02/22 18:35 06/03/22 04:21 06/03/22 18:42 06/04/22 08:56 06/05/22 03:50 Creatinine 0.70 - 1.20 mg/dL 1.94 (H) 2.15 (H) 2.68 (H) 2.35 (H) 2.28 (H) Creatinine is improving after reaching a peak of 2.68 Blood pressure remains under good control. Patient is status post cardiac catheterization on 05/26/2022 found to have multivessel coronary disease, Labs show a calcium of 10.6, creatinine was 1.6 yesterday, 1.7 today quite possibly secondary to vasoconstriction because of hypercalcemia. He does have a history of primary hyperparathyroidism and currently was not on any specific meds for that. He will be started on Sensipar. Outpatient Medications: Medications Prior to Admission: Cholecalciferol (VITAMIN D3) 125 MCG (5000 UT) TABS, Take 1 tablet by mouth lisinopril (PRINIVIL;ZESTRIL) 5 MG tablet, Take 5 mg by mouth daily FLUoxetine (PROZAC) 10 MG tablet, Take 10 mg by mouth daily fluticasone (VERAMYST) 27.5 MCG/SPRAY nasal spray, 2 sprays by Each Nostril route daily cetirizine (ZYRTEC) 10 MG tablet, Take 10 mg by mouth daily carvedilol (COREG) 25 MG tablet, Take 1 tablet by mouth in the morning and 1 tablet before bedtime. NIFEdipine (PROCARDIA XL) 30 MG extended release tablet, Take 1 tablet by mouth daily Current Medications: Scheduled Meds: amiodarone 200 mg Oral BID tamsulosin 0.4 mg Oral Daily sodium chloride flush 5-40 mL IntraVENous 2 times per day aspirin 81 mg Oral Daily clopidogrel 75 mg Oral Daily mupirocin Each Nostril BID polyethylene glycol 17 g Oral Daily sennosides-docusate sodium 1 tablet Oral BID metoprolol tartrate 12.5 mg Oral BID atorvastatin 20 mg Oral Nightly pantoprazole 40 mg Oral Daily insulin glargine 0.15 Units/kg SubCUTAneous Nightly insulin lispro 0-6 Units SubCUTAneous TID insulin lispro 0-3 Units SubCUTAneous Nightly Continuous Infusions: sodium chloride 50 mL/hr at 06/03/223 sodium chloride 25 mL/hr at 06/03/223 propofol Stopped (06/02/222212) dextrose Input/Output: I/O last 3 completed shifts: In: 340 [P.O.:340] Out: 2250 [Urine:1940; Chest Tube:310]. Patient Vitals for the past 96 hrs (Last 3 readings): Weight 06/05/22 0600 283 lb 11.7 oz (128.7 kg) 06/04/22 0722 282 lb 3 oz (128 kg) 06/02/22 0606 279 lb 12.2 oz (126.9 kg) Vital Signs: Temperature: Temp: 98.4 F (36.9 C) TMax: Temp (24hrs), Av.7 F (37.1 C), Min:98.1 F (36.7 C), Max:99.4 F (37.4 C) Respirations: Resp: 20 Pulse: Heart Rate: 93 BP: BP: 127/78 BP Range: Systolic (24hrs), Av , Min:121 , Max:137 Diastolic (24hrs), Av, Min:56, Max:102 Physical Examination: General: Awake and alert x3 HEENT: Traumatic normocephalic Eyes: Pupils reactive to light Neck: Supple Chest: Sternotomy. Bilateral vesicular breath sounds, no rales or wheezes. Cardiac: S1 S2 RR, no murmurs, gallops or rubs. Abdomen: Soft, obese, non-tender, no masses or organomegaly, BS audible. : No suprapubic or flank tenderness. Neuro: AAO x 3, No FND. SKIN: No rashes, good skin turgor. Extremities: Trace edema Labs: Latest Reference Range & Units 06/04/22 08:56 Sodium 135 - 144 mmol/L 134 (L) Potassium 3.7 - 5.3 mmol/L 4.9 Chloride 98 - 107 mmol/L 102 CO2 20 - 31 mmol/L 21 BUN,BUNPL 6 - 20 mg/dL 24 (H) Creatinine 0.70 - 1.20 mg/dL 2.35 (H) Anion Gap 9 - 17 mmol/L 11 Calcium, Ionized 1.13 - 1.33 mmol/L 1.28 Est, Glom Filt Rate >60 mL/min/1.73m2 36 (L) Magnesium 1.6 - 2.6 mg/dL 2.2 Glucose, Random 70 - 99 mg/dL 192 (H) MARIO: Lab Results Component Value Date/Time MARIO NEGATIVE 08/30/2021 10:34 AM SPEP: Lab Results Component Value Date/Time PROT 7.7 10/06/2021 11:32 AM ALBCAL 3.1 09/02/2021 12:25 PM ALBPCT 53 09/02/2021 12:25 PM LABALPH 0.4 09/02/2021 12:25 PM LABALPH 0.8 09/02/2021 12:25 PM A1PCT 7 09/02/2021 12:25 PM A2PCT 13 09/02/2021 12:25 PM LABBETA 0.9 09/02/2021 12:25 PM BETAPCT 16 09/02/2021 12:25 PM GAMGLOB 0.7 09/02/2021 12:25 PM GGPCT 11 09/02/2021 12:25 PM PATH ELECTRONICALLY SIGNED. ZOE STERN M.D. 09/02/2021 12:25 PM PATH ELECTRONICALLY SIGNED. ZOE STERN M.D. 09/02/2021 12:25 PM C3: Lab Results Component Value Date/Time C3 183 09/02/2021 12:25 PM C4: Lab Results Component Value Date/Time C4 29 09/02/2021 12:25 PM MPO ANCA: Lab Results Component Value Date/Time MPO <0.3 08/30/2021 10:34 AM PR3 ANCA: Lab Results Component Value Date/Time PR3 0.9 08/30/2021 10:34 AM Hep BsAg: Lab Results Component Value Date/Time HEPBSAG NONREACTIVE 09/02/2021 12:25 PM Hep C AB: Lab Results Component Value Date/Time HEPCAB NONREACTIVE 09/02/2021 12:25 PM Urinalysis/Chemistries: Lab Results Component Value Date/Time NITRU NEGATIVE 05/30/2022 08:30 PM COLORU Yellow 05/30/2022 08:30 PM PHUR 5.5 05/30/2022 08:30 PM WBCUA 0 TO 2 05/30/2022 08:30 PM RBCUA 0 TO 2 05/30/2022 08:30 PM SPECGRAV 1.019 05/30/2022 08:30 PM LEUKOCYTESUR NEGATIVE 05/30/2022 08:30 PM UROBILINOGEN Normal 05/30/2022 08:30 PM BILIRUBINUR NEGATIVE 05/30/2022 08:30 PM GLUCOSEU 3+ 05/30/2022 08:30 PM KETUA NEGATIVE 05/30/2022 08:30 PM Urine Creatinine: Lab Results Component Value Date/Time LABCREA 123.3 05/23/2022 02:21 AM Radiology: Reviewed. Assessment: Acute kidney injury: Improving now after reaching a peak of 2.6 and now very slowly improving. NSTEMI- status post cardiac catheterization on 05/26/2022 found to have multivessel coronary disease, for Which on 06/02/2022. Patient is slowly recovering from surgery, still has chest tubes as well as Stone catheter CKD 3 likely due to diabetic and hypertensive nephrosclerosis baseline creatinine of around 1.2-1.5 mg/dl. Hypertension. Pressure is under good control Hypercalcemia: Last 3 calcium levels are within normal limits patient is not on Sensipar. History of proteinuria. HMost recent calcium is available from 06/02/2022 and 1.48. Patient is not on Sensipar diabetes type 2. Ischemic cardiopathy with a EF of 35% as per 2D echo done in August 2021. For sleep apnea. History of CVA. Cystic appearing lesion measuring 3.0 cm in the right kidney as per renal ultrasound done on 05/23/2022. Patient does have an outpatient urology appointment with Dr. Victoria in in [place] on 06/21/2022 and will follow-up about his renal cysts there. Plan: No changes in medication Start Lasix 20 mg once a day to keep I's and O's negative to even Labs as ordered No need for Sensipar at this point Nutrition Please ensure that patient is on a renal diet/TF. Avoid nephrotoxic drugs/contrast exposure. . Bc Flood MD , This note is created with the assistance of a speech-recognition program. While intending to generate a document that actually reflects the content of the visit, no guarantees can be provided that every mistake has been identified and corrected by editing. Occupational Therapy Facility/Department: [facility] CAR 1- SICU Occupational Daily Treatment Note Name: Elias Walker : 1985 Date of Service: 06/04/2022 Discharge Recommendations: Patient would benefit from continued therapy after discharge Patient Diagnosis(es): There were no encounter diagnoses. Past Medical History: has a past medical history of CKD (chronic kidney disease), stage III (HCC), Dilated cardiomyopathy (HCC), Hypertension, Persistent proteinuria, Priapism, unspecified, and Primary hypertension. Past Surgical History: has a past surgical history that includes Penis surgery (01/31/2016); Cardiac catheterization (05/26/2022); and Coronary artery bypass graft (N/A, 06/02/2022). Assessment Performance deficits / Impairments: Decreased functional mobility ;Decreased ADL status;Decreased high-level IADLs;Decreased endurance;Decreased safe awareness;Decreased balance;Decreased cognition;Decreased strength Prognosis: Good Activity Tolerance Activity Tolerance: Patient Tolerated treatment well;Patient limited by fatigue;Patient limited by pain Plan Occupational Therapy Plan Times Per Week: 4-6x/wk Current Treatment Recommendations: Strengthening, Balance training, Functional mobility training, Endurance training, Safety education & training, Positioning, Equipment evaluation, education, & procurement, Patient/Caregiver education & training, Self-Care / ADL, Home management training Restrictions Restrictions/Precautions Restrictions/Precautions: Cardiac, Up as Tolerated Required Braces or Orthoses?: Yes Required Braces or Orthoses Other: Heart Hugger Brace Position Activity Restriction Sternal Precautions: No Pulling, 5# Lifting Restrictions, No Pushing Other position/activity restrictions: ambulate patient, up in chair; s/p CABG x2 06/03/22, 3L NC, stone, chest tube Pain assessment: Pt c/o generalized chest pain 08/13 Pain intervention: Repositioned, emotional support Subjective General Patient assessed for rehabilitation services?: Yes Family / Caregiver Present: Yes (girlfriend) Safety Devices Type of Devices: All fall risk precautions in place;Call light within reach;Chair alarm in place;Gait belt;Nurse notified;Left in chair Balance Sitting: Without support (Supervison seated in chair.) Standing: With support (CGAtatic standing at chair using RW, functional mobility to/from bathroom using RW, simple grooming standing at sink. Total time 8 minutes.) Gait Overall Level of Assistance: Contact-guard assistance;Additional time Assistive Device: Gait belt;Walker, rolling ADL Feeding: Independent;Beverage management Grooming: Setup;Verbal cueing;Increased time to complete;Contact guard assistance (Oral care standing at sink.) UE Bathing: Setup;Verbal cueing;Increased time to complete;Contact guard assistance (wash face standing at sink.) UE Dressing: Setup;Increased time to complete;Minimal assistance (To change gown d/t multiple lines.) Additional Comments: Pt seated in chair upon therapist arrival. Pt educated on sternal precautions and heart hugger (purpose of and doff/don) with good return. Pt educated on use of incentive spirometer, pt verbalized/demo understanding. Pt educated on pursed lip breathing throughout session d/t pain and pt occassionally holding brief for brief moments, with fair return. Pt completed sit/stand transfer from chair using RW for static standing. Functional mobility to bathroom using RW. Pt completed simple grooming standing at sink. Increased time needed to complete d/t fatigue and generalized chest pain. Pt fatigued quickly needing to exit bathroom to return to seated in chair. Gown doffed with clean gown donned with education provided on UB dressing and adjustment of heart hugger with good return. Multiple rest breaks needed throughout session d/t fatigue. Pt seated in chair at end of session with all needs met. Transfers Sit to stand: Contact guard assistance Stand to sit: Contact guard assistance Transfer Comments: Verbal cues for hand placement and use of heart hugger with good return. Cognition Overall Cognitive Status: Exceptions Attention Span: Attends with cues to redirect;Appears intact (Per pt girlfriend, pt has a form of narcolepsy. Pt intermittently dozing off for a few seconds throughout session.) Problem Solving: Assistance required to identify errors made;Assistance required to correct errors made Initiation: Requires cues for some Sequencing: Does not require cues Orientation Overall Orientation Status: Within Functional Limits Education Given To: Patient;Family Education Provided Comments: OT POC, transfer/walker safety, importance of participation in therapy, sternal precautions, heart hugger, incentive spirometer, UB dressing, pursed lip breathing with good return. AM-PAC Score [facility] Inpatient Daily Activity Raw Score: 16 (06/04/22 1528) [facility] Inpatient ADL T-Scale Score : 35.96 (04/01/23 1528) ADL Inpatient CMS 0-100% Score: 53.32 (06/04/221527) ADL Inpatient CMS G-Code Modifier : CK (06/04/221527) Goals Short Term Goals Time Frame for Short Term Goals: Patient will, by discharge Short Term Goal 1: demo UB ADLs at Mod I Short Term Goal 2: demo LB/toileting tasks using AE PRN to engage in ADLs safely Short Term Goal 3: demo 10+ min of dynamic standing tolerance at SBA using AE PRN to engage in ADLs Short Term Goal 4: demo 100% adherence to sternal precautions with engagement in functional tasks with 0 VCs Short Term Goal 5: demo functional transfers/mobility using LRD at Supervision to engage in ADLs safely Therapy Time Individual Concurrent Group Co-treatment Time In 1127 Time Out 1230 Minutes 63 Timed Code Treatment Minutes: 63 Minutes Pt seated in chair upon therapist arrival. Pleasant and agreeable to therapy. See above for LOF for all tasks. Pt retired to seated in chair at end of session with chair alarm activated and call light within reach. FERNANDA Christensen [facility] Cardiothoracic Surgery Progress Note 06/04/2022 11:21 AM Surgeon: Surgeon CTS: Dr. Jasmyn ANN POD # 2 S/P: Cabg x 2 Subjective: Mr. Walker Pt shows no acute distress.resting in bed A&0x4. Objective: BP (!) 100/34 Pulse 91 Temp 97.7 F (36.5 C) (Oral) Resp 19 Ht 5' 4 (1.626 m) Wt 282 lb 3 oz (128 kg) SpO2 94% BMI 48.44 kg/m Chest: pacing wires: yes, chest tubes:yes, air leak no, 2 + CV: no murmur noted, Normal S1, S2, Lungs: clear to auscultation, no wheezes, rales, or rhonchi Abd: normal bowel sounds Lower Extremities: Trace edema Saph Incison: no sign of drainage or infection Sternal Incison: dressing applied-no excessive drainage or signs of infection noted CXR-stable. No pl effusion or pneumothorax present. Labs: Labs reviewed today CBC: Recent Labs 06/02/22 1835 06/03/22 0421 06/04/22 0856 WBC 11.9* 17.1* 15.0* HGB 11.6* 11.8* 11.9* HCT 34.9* 36.3* 36.6* MCV 89.3 90.5 91.7 PLT 154 190 196 BMP: Recent Labs 06/03/22 0421 06/03/22 1842 06/04/22 0856 NA 139 130* 134* K 5.3 5.1 4.9 CL 111* 102 102 CO2 20 22 21 BUN 23* 26* 24* CREATININE 2.15* 2.68* 2.35* I/O: I/O last 3 completed shifts: In: 742.7 [I.V.:742.7] Out: 2590 [Urine:2200; Chest Tube:390] Scheduled Meds: amiodarone 200 mg Oral BID tamsulosin 0.4 mg Oral Daily sodium chloride flush 5-40 mL IntraVENous 2 times per day aspirin 81 mg Oral Daily clopidogrel 75 mg Oral Daily mupirocin Each Nostril BID polyethylene glycol 17 g Oral Daily sennosides-docusate sodium 1 tablet Oral BID metoprolol tartrate 12.5 mg Oral BID atorvastatin 20 mg Oral Nightly pantoprazole 40 mg Oral Daily insulin glargine 0.15 Units/kg SubCUTAneous Nightly insulin lispro 0-6 Units SubCUTAneous TID WC insulin lispro 0-3 Units SubCUTAneous Nightly Continuous Infusions: sodium chloride 50 mL/hr at 06/03/22 0043 sodium chloride 25 mL/hr at 06/03/22 0043 propofol Stopped (06/02/222212) dextrose PRN Meds:sodium chloride, sodium chloride flush, sodium chloride, ondansetron OR ondansetron, oxyCODONE-acetaminophen OR oxyCODONE-acetaminophen, fentanNYL OR fentanNYL, hydrALAZINE, sodium bicarbonate, diphenhydrAMINE, magnesium hydroxide, bisacodyl, potassium chloride, magnesium sulfate, ipratropium-albuterol, albumin human, albumin human, glucose, dextrose bolus OR dextrose bolus, glucagon (rDNA), dextrose Beta- Ubaldo: Yes Aspirin: Yes Lovenox: No GI: Yes Plavix: Yes Coumadin: No Statin: Yes TYRON: No Daily Nursing Care: Please keep SCDS in place as DVT prophylaxis If not intubated, Please have patient use IS and acapella 10X/hr or during commercial breaks Please continue BM management Daily labs and CXR Daily PT/OT and ambulation Continue with Case Management for DC planning Assessment/ Plan: Please leave stone one more day Started flomax Nephrology following to assist with renal function-patient making normal UO. Nephrology to manage diuretics We will eval for Ct removal tomorrow AM Please continue with PT OT DC planning home with [facility] Cardiology-this patient will need stent to RCA KENNETH WILLINGHAM NP Physical Therapy Facility/Department: [facility] 1- SICU Daily Treatment Note Name: Elias Walker : 1985 Date of Service: 06/04/2022 Discharge Recommendations: Patient would benefit from continued therapy after discharge PT Equipment Recommendations Equipment Needed: No Other: owns rollator Patient Diagnosis(es): There were no encounter diagnoses. Past Medical History: has a past medical history of CKD (chronic kidney disease), stage III (HCC), Dilated cardiomyopathy (HCC), Hypertension, Persistent proteinuria, Priapism, unspecified, and Primary hypertension. Past Surgical History: has a past surgical history that includes Penis surgery (01/31/2016); Cardiac catheterization (05/26/2022); and Coronary artery bypass graft (N/A, 06/02/2022). Assessment Body Structures, Functions, Activity Limitations Requiring Skilled Therapeutic Intervention: Decreased functional mobility ;Decreased ADL status;Decreased body mechanics;Decreased tolerance to work activity;Decreased strength;Decreased endurance;Decreased balance;Decreased high-level IADLs;Increased pain Assessment: Pt ambulated 250 ft with RW CGA on 3L NC with frequent static standing rest periods d/t endurance, to monitor SpO2 and coughing episodes. Gait appears steady with L toe out due to leg length discrepancy. Chair follow used today. Good use of heart hugger with sit<>stand transfers and coughing. Pt demonstrates decreased balance, endurance, functional mobility, and strength. At this time skilled PT is needed to promote return to baseline function. pt does appear they will be safe to return home with supervision and OP PT. Therapy Prognosis: Good Activity Tolerance Activity Tolerance: Patient tolerated treatment well Plan Physcial Therapy Plan General Plan: 6-7 times per week Current Treatment Recommendations: Strengthening, ROM, Balance training, Functional mobility training, Endurance training, Transfer training, Neuromuscular re-education, Stair training, Gait training, Manual, Therapeutic activities, Home exercise program, Safety education & training, Patient/Caregiver education & training, Equipment evaluation, education, & procurement Safety Devices Type of Devices: All fall risk precautions in place, Call light within reach, Chair alarm in place, Nurse notified, Gait belt, Patient at risk for falls, Left in chair Restraints Restraints Initially in Place: No Restrictions Restrictions/Precautions Restrictions/Precautions: Cardiac, Up as Tolerated Required Braces or Orthoses?: Yes Required Braces or Orthoses Other: Heart Hugger Brace Position Activity Restriction Sternal Precautions: No Pulling, 5# Lifting Restrictions, No Pushing Other position/activity restrictions: ambulate patient, up in chair; s/p CABG x2 06/03/22, 3L NC, stone, chest tube Subjective General Chart Reviewed: Yes Response To Previous Treatment: Patient with no complaints from previous session. Family / Caregiver Present: No General Comment Comments: Pt retired to recliner with call light. Needs met. RN okay for pt off of suction with mobility. Subjective Subjective: RN and pt agreeable to PT. Pt in recliner upon arrival. Pt having some surgical discomfort but didn't rate. Pt rated incision pain at 5/10 after mobility. Pt pleasant and cooperative; flat affect. Cognition Orientation Overall Orientation Status: Within Functional Limits Cognition Overall Cognitive Status: WFL Objective Bed mobility Supine to Sit: Unable to assess Sit to Supine: Unable to assess Bed Mobility Comments: in chair upon arrival, retired to chair at end of session. Pt able to scoot fwd to EOC with SBA. Pt required maxA x 2 to scoot back into recliner. Transfers Sit to Stand: Contact guard assistance Stand to Sit: Contact guard assistance Comment: Assessed to RW with good use of heart hugger and breathing techniques. Ambulation Surface: Level tile Device: Rolling Walker Other Apparatus: O2 (3L NC) Assistance: Contact guard assistance Gait Deviations: Increased DAGO;Slow Monique;Decreased step length;Decreased step height Distance: 250 ft Comments: Pt required several standing rest periods t/o ambulation d/t endurance, to monitor SpO2, and coughing with good use of heart hugger. Chair follow for safety from previous session. Balance Posture: Good Sitting - Static: Good Sitting - Dynamic: Good Standing - Static: Fair;+ Standing - Dynamic: Fair Comments: standing balance assessed with RW; Exercise Treatment: Seated LE exercise program: Long Arc Quads, hip abduction/adduction, heel/toe raises, and marches. Reps: x 10 reps Breathing Techniques: IS and acapella x 10 reps OutComes Score AM-PAC Score [facility] Inpatient Mobility Raw Score : 17 (06/04/22 102) AM-PAC Inpatient T-Scale Score : 42.13 (06/04/221027) Mobility Inpatient CMS 0-100% Score: 50.57 (06/04/228) Mobility Inpatient CMS G-Code Modifier : CK (06/04/221027) Goals Short Term Goals Time Frame for Short Term Goals: 14 visits Short Term Goal 1: pt will be IND with HEP and maintain sternal precautions 100% of time Short Term Goal 2: pt will be IND with transfers Short Term Goal 3: pt will be mod I for ambulation for 300' Short Term Goal 4: pt will complete at least 3 steps with L hand rain and CGA Short Term Goal 5: pt will demonstrate dynamic standing balance of at least good Education Patient Education Education Given To: Patient Education Provided: Role of Therapy;Plan of Care Education Provided Comments: WRITTEN CARDIAC HEP GIVEN TO PT Education Method: Demonstration;Verbal Barriers to Learning: None Education Outcome: Verbalized understanding;Demonstrated understanding Therapy Time Individual Concurrent Group Co-treatment Time In 938 Time Out 1024 Minutes 45 Timed Code Treatment Minutes: 40 Minutes LADONNA POSADA PTA Renal Progress Note Patient : Elias Walker; 36 y.o. Location: [facility]/1015-01 Attending: Ariel Purdy MD Admit Date: 05/23/2022 Hospital Day: 12 Subjective: Patient seen and examined. Patient is just back from a walk with the help of physical therapist. He states that he is slowly improving. He continues to have Stone catheter for drainage. His calcium is within acceptable range. The pattern of his creatinines are as follows: Latest Reference Range & Units 06/02/22 05:30 06/02/22 18:35 06/03/22 04:21 06/03/22 18:42 06/04/22 08:56 Creatinine 0.70 - 1.20 mg/dL 1.79 (H) 1.94 (H) 2.15 (H) 2.68 (H) 2.35 (H) Creatinine is improving after reaching a peak of 2.68 The pattern of his calciums are as follows Latest Reference Range & Units 06/02/22 16:28 06/02/22 16:43 06/02/22 17:04 06/02/22 17:43 06/02/22 18:19 POC Ionized Calcium 1.15 - 1.33 mmol/L 1.24 1.27 1.48 (H) 1.44 (H) 1.48 (H) Blood pressure remains under good control. Patient is status post cardiac catheterization on 05/26/2022 found to have multivessel coronary disease, Labs show a calcium of 10.6, creatinine was 1.6 yesterday, 1.7 today quite possibly secondary to vasoconstriction because of hypercalcemia. He does have a history of primary hyperparathyroidism and currently was not on any specific meds for that. He will be started on Sensipar. Outpatient Medications: Medications Prior to Admission: Cholecalciferol (VITAMIN D3) 125 MCG (5000 UT) TABS, Take 1 tablet by mouth lisinopril (PRINIVIL;ZESTRIL) 5 MG tablet, Take 5 mg by mouth daily FLUoxetine (PROZAC) 10 MG tablet, Take 10 mg by mouth daily fluticasone (VERAMYST) 27.5 MCG/SPRAY nasal spray, 2 sprays by Each Nostril route daily cetirizine (ZYRTEC) 10 MG tablet, Take 10 mg by mouth daily carvedilol (COREG) 25 MG tablet, Take 1 tablet by mouth in the morning and 1 tablet before bedtime. NIFEdipine (PROCARDIA XL) 30 MG extended release tablet, Take 1 tablet by mouth daily Current Medications: Scheduled Meds: amiodarone 200 mg Oral BID sodium chloride flush 5-40 mL IntraVENous 2 times per day aspirin 81 mg Oral Daily clopidogrel 75 mg Oral Daily mupirocin Each Nostril BID polyethylene glycol 17 g Oral Daily sennosides-docusate sodium 1 tablet Oral BID metoprolol tartrate 12.5 mg Oral BID atorvastatin 20 mg Oral Nightly pantoprazole 40 mg Oral Daily insulin glargine 0.15 Units/kg SubCUTAneous Nightly insulin lispro 0-6 Units SubCUTAneous TID insulin lispro 0-3 Units SubCUTAneous Nightly Continuous Infusions: sodium chloride 50 mL/hr at 06/03/22 0043 sodium chloride 25 mL/hr at 06/03/22 0043 propofol Stopped (06/02/222212) dextrose Input/Output: I/O last 3 completed shifts: In: 742.7 [I.V.:742.7] Out: 2590 [Urine:2200; Chest Tube:390]. Patient Vitals for the past 96 hrs (Last 3 readings): Weight 06/04/22 0722 282 lb 3 oz (128 kg) 06/02/22 0606 279 lb 12.2 oz (126.9 kg) 06/01/22 0026 281 lb 12 oz (127.8 kg) Vital Signs: Temperature: Temp: 97.7 F (36.5 C) TMax: Temp (24hrs), Av.4 F (36.9 C), Min:97.7 F (36.5 C), Max:98.7 F (37.1 C) Respirations: Resp: 19 Pulse: Heart Rate: 91 BP: BP: (!) 100/34 BP Range: Systolic (24hrs), Av , Min:96 , Max:135 Diastolic (24hrs), Av, Min:34, Max:89 Physical Examination: General: Awake and alert x3 HEENT: Atraumatic and normocephalic. Eyes: Pupils reactive to light Neck: Supple Chest: Sternotomy. Bilateral vesicular breath sounds, no rales or wheezes. Cardiac: S1 S2 RR, no murmurs, gallops or rubs. Abdomen: Soft, obese, non-tender, no masses or organomegaly, BS audible. : No suprapubic or flank tenderness. Neuro: AAO x 3, No FND. SKIN: No rashes, good skin turgor. Extremities: No edema involving lower extremities Labs: Latest Reference Range & Units 06/04/22 08:56 Sodium 135 - 144 mmol/L 134 (L) Potassium 3.7 - 5.3 mmol/L 4.9 Chloride 98 - 107 mmol/L 102 CO2 20 - 31 mmol/L 21 BUN,BUNPL 6 - 20 mg/dL 24 (H) Creatinine 0.70 - 1.20 mg/dL 2.35 (H) Anion Gap 9 - 17 mmol/L 11 Calcium, Ionized 1.13 - 1.33 mmol/L 1.28 Est, Glom Filt Rate >60 mL/min/1.73m2 36 (L) Magnesium 1.6 - 2.6 mg/dL 2.2 Glucose, Random 70 - 99 mg/dL 192 (H) MARIO: Lab Results Component Value Date/Time MARIO NEGATIVE 08/30/2021 10:34 AM SPEP: Lab Results Component Value Date/Time PROT 7.7 10/06/2021 11:32 AM ALBCAL 3.1 09/02/2021 12:25 PM ALBPCT 53 09/02/2021 12:25 PM LABALPH 0.4 09/02/2021 12:25 PM LABALPH 0.8 09/02/2021 12:25 PM A1PCT 7 09/02/2021 12:25 PM A2PCT 13 09/02/2021 12:25 PM LABBETA 0.9 09/02/2021 12:25 PM BETAPCT 16 09/02/2021 12:25 PM GAMGLOB 0.7 09/02/2021 12:25 PM GGPCT 11 09/02/2021 12:25 PM PATH ELECTRONICALLY SIGNED. ZOE STERN M.D. 09/02/2021 12:25 PM PATH ELECTRONICALLY SIGNED. ZOE STERN M.D. 09/02/2021 12:25 PM C3: Lab Results Component Value Date/Time C3 183 09/02/2021 12:25 PM C4: Lab Results Component Value Date/Time C4 29 09/02/2021 12:25 PM MPO ANCA: Lab Results Component Value Date/Time MPO <0.3 08/30/2021 10:34 AM PR3 ANCA: Lab Results Component Value Date/Time PR3 0.9 08/30/2021 10:34 AM Hep BsAg: Lab Results Component Value Date/Time HEPBSAG NONREACTIVE 09/02/2021 12:25 PM Hep C AB: Lab Results Component Value Date/Time HEPCAB NONREACTIVE 09/02/2021 12:25 PM Urinalysis/Chemistries: Lab Results Component Value Date/Time NITRU NEGATIVE 05/30/2022 08:30 PM COLORU Yellow 05/30/2022 08:30 PM PHUR 5.5 05/30/2022 08:30 PM WBCUA 0 TO 2 05/30/2022 08:30 PM RBCUA 0 TO 2 05/30/2022 08:30 PM SPECGRAV 1.019 05/30/2022 08:30 PM LEUKOCYTESUR NEGATIVE 05/30/2022 08:30 PM UROBILINOGEN Normal 05/30/2022 08:30 PM BILIRUBINUR NEGATIVE 05/30/2022 08:30 PM GLUCOSEU 3+ 05/30/2022 08:30 PM KETUA NEGATIVE 05/30/2022 08:30 PM Urine Creatinine: Lab Results Component Value Date/Time LABCREA 123.3 05/23/2022 02:21 AM Radiology: Reviewed. Assessment: Acute kidney injury: Improving now after reaching a peak of 2.6 NSTEMI- status post cardiac catheterization on 05/26/2022 found to have multivessel coronary disease, for Which on 06/02/2022. Patient is slowly recovering from surgery CKD 3 likely due to diabetic and hypertensive nephrosclerosis baseline creatinine of around 1.2-1.5 mg/dl. Hypertension. Pressure is under good control Morbid obesity. History of proteinuria. History of primary hyperparathyroidism and hypercalcemia. Most recent calcium is available from 06/02/2022 and 1.48. Patient is not on Sensipar diabetes type 2. Ischemic cardiopathy with a EF of 35% as per 2D echo done in August 2021. For sleep apnea. History of CVA. Cystic appearing lesion measuring 3.0 cm in the right kidney as per renal ultrasound done on 05/23/2022. Patient does have an outpatient urology appointment with Dr. Victoria in in [place] on 06/21/2022 and will follow-up about his renal cysts there. Plan: Continue current blood pressure medication Will repeat ionized calcium today We will start Sensipar if ionized calcium remains elevated We will follow with you Nutrition Please ensure that patient is on a renal diet/TF. Avoid nephrotoxic drugs/contrast exposure. . Bc Flood MD , This note is created with the assistance of a speech-recognition program. While intending to generate a document that actually reflects the content of the visit, no guarantees can be provided that every mistake has been identified and corrected by editing. Images from the original note were not included. [employer] Progress Note Date: 06/04/2022 Patient name: Elias Walker Date of admission: 05/23/2022 12:00 PM Date of : 1985 PCP: Jose Khanna APRN - RECREATION SUPERVISOR Reason for Admission: NSTEMI (non-ST elevated myocardial infarction) ([facility]) [I21.4] Subjective: Seen and examined by bedside no acute overnight events. Telemetry showed sinus rhythm with heart rate sinus rhythm heart rate 80-90. Blood pressure 118/52 on exam this a.m. no chest tube. No other acute overnight events. Renal function worsening, creatinine 2.68 from 215 yesterday. Sodium level trending down to 130. Medications: Scheduled Meds: sodium chloride flush 5-40 mL IntraVENous 2 times per day aspirin 81 mg Oral Daily clopidogrel 75 mg Oral Daily amiodarone 200 mg Oral TID mupirocin Each Nostril BID polyethylene glycol 17 g Oral Daily sennosides-docusate sodium 1 tablet Oral BID metoprolol tartrate 12.5 mg Oral BID atorvastatin 20 mg Oral Nightly pantoprazole 40 mg Oral Daily pantoprazole (PROTONIX) 40 mg injection 40 mg IntraVENous Daily insulin glargine 0.15 Units/kg SubCUTAneous Nightly insulin lispro 0-6 Units SubCUTAneous TID WC insulin lispro 0-3 Units SubCUTAneous Nightly ceFAZolin (ANCEF) IVPB 3,000 mg IntraVENous Q8H Continuous Infusions: sodium chloride 50 mL/hr at 06/03/22 0043 sodium chloride 25 mL/hr at 06/03/22 0043 propofol Stopped (03/30/23 2213) dextrose CBC: Recent Labs 06/01/22 0219 06/01/22 0920 06/02/22 1835 06/03/22 0421 WBC -- -- 11.9* 17.1* HGB -- 13.0 11.6* 11.8* PLT 216 -- 154 190 BMP: Recent Labs 06/02/22 1835 06/03/22 0421 06/03/22 1842 NA 138 139 130* K 5.0 5.3 5.1 CL 111* 111* 102 CO2 19* 20 22 BUN 20 23* 26* CREATININE 1.94* 2.15* 2.68* GLUCOSE 93 113* 133* Hepatic:No results for input(s): AST, ALT, ALB, BILITOT, ALKPHOS in the last 72 hours. Troponin: No results for input(s): TROPHS in the last 72 hours. BNP: No results for input(s): BNP in the last 72 hours. Lipids: No results for input(s): CHOL, HDL in the last 72 hours. Invalid input(s): LDLCALCU INR: Recent Labs 06/02/22183406/03/22420 INR 1.3 1.1 EKG: Date: 05/24/22 Reading: Normal sinus rhythm Nonspecific ST and T wave abnormality Abnormal ECG When compared with ECG of 23-MAY-2022 13:07, No significant change was found LAST ECHO: Date: 09/02/2021 Findings Summary: The study was performed by the Rn Acute Care, Cardiac Fellow, and the Acid Wash Operator in the [place] without complications. Consent was obtained from the family. The patient tolerated the procedure well. Conscious sedation was used. No clots were visualized in the left atrial appendage. Estimated ejection fraction is 50% No valvular vegetations or thrombus were identified Echo 05/25/22 Summary Left ventricle is normal in size with increased septal wall thickness. Definity was utilized to better visualize endocardial boarders. Calculated EF via Lara's method (with Definity) is 68%. Evidence of diastolic dysfunction. Mitral valve sclerosis without stenosis. Mitral annular calcification is seen. Trivial tricuspid regurgitation. Estimated right ventricular systolic pressure is 36 mmHg. Cardiac Cath 05/27/22 Findings: LMCA: Diffuse irregularities 20-30%. LAD: Multiple stenosis. Lesion on Prox LAD: 90% stenosis. Lesion on Mid LAD: 80% stenosis. Lesion on Dist LAD: 80% stenosis. LCx: Single stenosis. Lesion on Prox CX: 70% stenosis. RCA: Multiple stenosis. Lesion on Mid RCA: 90% stenosis. Lesion on R PDA: Ostial.80% stenosis. Coronary Tree Dominance: Right LV Analysis LV function assessed as:Normal. The LV gram was performed in the SALDANA 30 position. LVEF: 60%. Conclusions: Multi-vessel Coronary Artery Disease. Normal LV systolic function. Recommendations CTS consult for CABG. Medical therapy as needed. Risk factor modification. Objective: Vitals: BP 128/82 Pulse 89 Temp 98.6 F (37 C) (Oral) Resp 20 Ht 5' 4 (1.626 m) Wt 279 lb 12.2 oz (126.9 kg) SpO2 97% BMI 48.02 kg/m General appearance: alert and cooperative with exam HEENT: Head: Normocephalic, no lesions, without obvious abnormality. Neck:no JVD, trachea midline, no adenopathy Lungs: Clear to auscultation, dim throughout. Heart: Regular rate and rhythm, s1/s2 auscultated, no murmurs, SR Abdomen: soft, non-tender, bowel sounds active,morbidly obese Extremities: no edema Neurologic: not done Assessment / Acute Cardiac Problems: NSTEMI status postcardiac cath showing multivessel CAD status post CABG on 06/02/22 Will need staged PCI to RCA, unable to bypass due to lack of conduit Preserved LV systolic function HTN urgency-resolved OZZIE on CKD3 - worsening renal function Morbid obesity DM2 Hyponatremia Plan of Treatment: Amiodarone 200 mg BIF. Monitor on telemetry. Daily EKG, monitor for Qtc prolongation Continue on DAPT; aspirin and Plavix Continue on Lopressor 12.5 mg twice daily Lipitor 80 mg po qd Cardiac Rehab start in patient Tight glycemic control as per surgery Will need staged PCI to RCA, likely next week prior to discharge. Will need nephrology clearance prior to possible intervention. Nephrology recommending to hold off at this time, will follow and evaluate. [employer] [phone] Attending Physician Statement I have discussed the case of Elias Walker including pertinent history and exam findings with the student/resident/fellow. I have seen and examined the patient and the salguero elements of the encounter have been performed by me. I agree with the assessment, plan and orders as documented by the resident With changes made to the note. . [employer] [phone] Occupational Therapy Facility/Department: [facility]- [facility] Occupational Therapy Initial Assessment Name: Elias Walker : 1985 Date of Service: 06/03/2022 S/p CABG 06/02/22 Discharge Recommendations: Patient would benefit from continued therapy after discharge Patient Diagnosis(es): There were no encounter diagnoses. Past Medical History: has a past medical history of CKD (chronic kidney disease), stage III (HCC), Dilated cardiomyopathy (HCC), Hypertension, Persistent proteinuria, Priapism, unspecified, and Primary hypertension. Past Surgical History: has a past surgical history that includes Penis surgery (01/31/2016); Cardiac catheterization (05/26/2022); and Coronary artery bypass graft (N/A, 06/02/2022). Assessment Performance deficits / Impairments: Decreased functional mobility ;Decreased ADL status;Decreased high-level IADLs;Decreased endurance;Decreased safe awareness;Decreased balance Assessment: Patient completed functional transfers at [facility] using RW for support with use of heart hugger with verbal cue. OT educated patient on use of heart hugger for functional transfers and position changes with fair return. Pt completed household distance functional mobility with use of RW for support, limited for further activity tolerance d/t fatigue. Patient would benefit from continued acute OT services to address functional deficits through skilled intervention impacting performance and safety with ADLs/IADLs. Prognosis: Good Decision Making: Medium Complexity REQUIRES OT FOLLOW-UP: Yes Activity Tolerance Activity Tolerance: Patient Tolerated treatment well;Patient limited by fatigue Plan Occupational Therapy Plan Times Per Week: 4-6x/wk Current Treatment Recommendations: Strengthening, Balance training, Functional mobility training, Endurance training, Safety education & training, Positioning, Equipment evaluation, education, & procurement, Patient/Caregiver education & training, Self-Care / ADL, Home management training Restrictions Restrictions/Precautions Restrictions/Precautions: Cardiac, Up as Tolerated Required Braces or Orthoses?: Yes Required Braces or Orthoses Other: Heart Hugger Brace Position Activity Restriction Sternal Precautions: No Pulling, 5# Lifting Restrictions, No Pushing Other position/activity restrictions: ambulate patient, up in chair; s/p CABG x2 06/03/22 Subjective General Patient assessed for rehabilitation services?: Yes Family / Caregiver Present: Yes General Comment Comments: RN ok'd patient for OT/PT evaluation. Pt pleasant, cooperative and agreeable. Pt reports 5/10 pain in the chest, good return with repositioning and education. Social/Functional History Social/Functional History Lives With: Significant other, Daughter (10 yo) Type of Home: Trailer Home Layout: One level Home Access: Stairs to enter with rails Entrance Stairs - Number of Steps: 3 Entrance Stairs - Rails: Left Bathroom Shower/Tub: Walk-in shower Bathroom Toilet: Handicap height Bathroom Equipment: Tub transfer bench, Grab bars in shower Home Equipment: Cane, Rollator (uses no DME at baseline) Receives Help From: Family ADL Assistance: Independent Homemaking Assistance: Independent Homemaking Responsibilities: Yes Meal Prep Responsibility: Primary Laundry Responsibility: Primary Cleaning Responsibility: Primary Shopping Responsibility: Primary Ambulation Assistance: Independent Transfer Assistance: Independent Active Architectural Engineer: Yes Mode of Transportation: [facility] Occupation: Unemployed Leisure & Hobbies: Eat, video games Additional Comments: Signficant other is able to provide assistance PRN, works outside the home 2x/week Objective Safety Devices Type of Devices: All fall risk precautions in place;Call light within reach;Chair alarm in place;Nurse notified;Gait belt;Patient at risk for falls;Left in chair Restraints Restraints Initially in Place: No Balance Sitting: Without support (Min A to transition from supported > unsupported; able to maintain unsupported at Supervision grossly; good return on use of heart hugger ~13-14 min grossly) Standing: With support (CGA at recliner using RW support, maintaining B UE support on RW throughout ~3-4 min static pre mobility) Transfer Training Transfer Training: Yes Overall Level of Assistance: Contact-guard assistance Interventions: Verbal cues;Safety awareness training (for proper hand placement and awareness to maintain sternal precautions) Sit to Stand: Contact-guard assistance Stand to Sit: Contact-guard assistance Gait Overall Level of Assistance: Contact-guard assistance Interventions: Verbal cues;Safety awareness training (for assistance with RW positioning and progression, limited d/t dizziness and fatigue) Assistive Device: Gait belt;Walker, rolling (within room and household distances with in hallway) AROM: Within functional limits Strength: Within functional limits (maintaining sternal precautions, based on functional task performance) Coordination: Within functional limits Tone: Normal Sensation: Intact ADL Feeding: Independent Grooming: Independent UE Bathing: Stand by assistance;Increased time to complete LE Bathing: Minimal assistance;Increased time to complete UE Dressing: Stand by assistance;Increased time to complete LE Dressing: Minimal assistance;Increased time to complete Toileting: Increased time to complete;Minimal assistance Additional Comments: OT educated patient on sternal precautions and adherence during functional ADL tasks. Pt is expected to required Min A to complete LB and toileting tasks d/t decrease endurance and functional reach with dynamic balance. Activity Tolerance Activity Tolerance: Patient tolerated evaluation without incident Bed mobility Bed Mobility Comments: in chair upon arrival, retired to chair at end of session Vision Vision: Impaired Vision Exceptions: Wears glasses at all times Hearing Hearing: Within functional limits Cognition Overall Cognitive Status: Exceptions Arousal/Alertness: Appropriate responses to stimuli Following Commands: Follows multistep commands with increased time;Follows multistep commands with repitition Attention Span: Appears intact Memory: Decreased recall of precautions Safety Judgement: Good awareness of safety precautions Insights: Fully aware of deficits Initiation: Requires cues for some Sequencing: Does not require cues Orientation Orientation Level: Oriented to place;Oriented to time;Oriented to situation;Oriented to person Education Given To: Patient Education Provided: Role of Therapy;Plan of Care;ADL Adaptive Strategies;Transfer Training;Equipment;Fall Prevention Strategies;Precautions;Energy Conservation Education Method: Demonstration;Verbal;Teach Back Barriers to Learning: Cognition Education Outcome: Verbalized understanding;Continued education needed AM-PAC Score AM-PAC Inpatient Daily Activity Raw Score: 20 (06/03/221620) AM-PAC Inpatient ADL T-Scale Score : 42.03 (06/03/221620) ADL Inpatient CMS 0-100% Score: 38.32 (06/03/221620) ADL Inpatient CMS G-Code Modifier : CJ (03/31/23 1621) Goals Short Term Goals Time Frame for Short Term Goals: Patient will, by discharge Short Term Goal 1: demo UB ADLs at Mod I Short Term Goal 2: demo LB/toileting tasks using AE PRN to engage in ADLs safely Short Term Goal 3: demo 10+ min of dynamic standing tolerance at SBA using AE PRN to engage in ADLs Short Term Goal 4: demo 100% adherence to sternal precautions with engagement in functional tasks with 0 VCs Short Term Goal 5: demo functional transfers/mobility using LRD at Supervision to engage in ADLs safely Therapy Time Individual Concurrent Group Co-treatment Time In 08 Time Out 0917 Minutes 35 Timed Code Treatment Minutes: 23 Minutes Linda Garnica OTR/L Renal Progress Note Patient : Elias Walker; 36 y.o. Location: [facility]5/1015-01 Attending: Ariel Purdy MD Admit Date: 05/23/2022 Hospital Day: 11 Subjective: Patient was seen and examined. No new issues reported overnight. Patient is status post cardiac catheterization on 05/26/2022 found to have multivessel coronary disease, now status post CABG x2 06/02/2022. Patient will require staged PCI as CT surgery was unable to graft RCA. Has been off of pressor support since overnight. Patient did receive about ?4 g of vancomycin since last 24 hours, as reported by patient's nurse. Stone catheter was removed by primary. Has now been extubated and seems to doing better. Serum creatinine did increase to 2.15 mg/dl today. Sodium 139, potassium 5.3, chloride 111, bicarb 20, calcium 8.8, BUN 23. Urine output documented as about 1.9 L in the last 6 hours. Outpatient Medications: Medications Prior to Admission: Cholecalciferol (VITAMIN D3) 125 MCG (5000 UT) TABS, Take 1 tablet by mouth lisinopril (PRINIVIL;ZESTRIL) 5 MG tablet, Take 5 mg by mouth daily FLUoxetine (PROZAC) 10 MG tablet, Take 10 mg by mouth daily fluticasone (VERAMYST) 27.5 MCG/SPRAY nasal spray, 2 sprays by Each Nostril route daily cetirizine (ZYRTEC) 10 MG tablet, Take 10 mg by mouth daily carvedilol (COREG) 25 MG tablet, Take 1 tablet by mouth in the morning and 1 tablet before bedtime. NIFEdipine (PROCARDIA XL) 30 MG extended release tablet, Take 1 tablet by mouth daily Current Medications: Scheduled Meds: sodium chloride flush 5-40 mL IntraVENous 2 times per day aspirin 81 mg Oral Daily clopidogrel 75 mg Oral Daily amiodarone 200 mg Oral TID mupirocin Each Nostril BID polyethylene glycol 17 g Oral Daily sennosides-docusate sodium 1 tablet Oral BID metoprolol tartrate 12.5 mg Oral BID atorvastatin 20 mg Oral Nightly pantoprazole 40 mg Oral Daily pantoprazole (PROTONIX) 40 mg injection 40 mg IntraVENous Daily insulin glargine 0.15 Units/kg SubCUTAneous Nightly insulin lispro 0-6 Units SubCUTAneous TID WC insulin lispro 0-3 Units SubCUTAneous Nightly ceFAZolin (ANCEF) IVPB 3,000 mg IntraVENous Q8H Continuous Infusions: sodium chloride 50 mL/hr at 06/03/22 0043 sodium chloride 25 mL/hr at 06/03/22 0043 propofol Stopped (06/02/22 2213) insulin 4.65 Units/hr (06/03/22 1500) dextrose PRN Meds: sodium chloride, sodium chloride flush, sodium chloride, ondansetron OR ondansetron, oxyCODONE-acetaminophen OR oxyCODONE-acetaminophen, fentanNYL OR fentanNYL, meperidine, hydrALAZINE, sodium bicarbonate, diphenhydrAMINE, magnesium hydroxide, bisacodyl, potassium chloride, magnesium sulfate, calcium chloride IVPB OR calcium chloride IVPB, ipratropium-albuterol, albumin human, albumin human, glucose, dextrose bolus OR dextrose bolus, glucagon (rDNA), dextrose Input/Output: I/O last 3 completed shifts: In: 3602.7 [P.O.:360; I.V.:1742.7; Blood:1000; IV Piggyback:500] Out: 3845 [Urine:2875; Blood:700; Chest Tube:270]. Patient Vitals for the past 96 hrs (Last 3 readings): Weight 06/02/22 0606 279 lb 12.2 oz (126.9 kg) 06/01/22 0026 281 lb 12 oz (127.8 kg) 05/31/22 0353 282 lb 6.6 oz (128.1 kg) Vital Signs: Temperature: Temp: 97.9 F (36.6 C) TMax: Temp (24hrs), Av.3 F (36.3 C), Min:95.9 F (35.5 C), Max:99.9 F (37.7 C) Respirations: Resp: 18 Pulse: Heart Rate: 84 BP: BP: 100/76 BP Range: Systolic (24hrs), Av , Min:93 , Max:153 Diastolic (24hrs), Av, Min:45, Max:135 Physical Examination: General: AAO x 3, speaking in full sentences, no accessory muscle use. HEENT: Atraumatic, normocephalic, no throat congestion, moist mucosa. Eyes: Pupils equal, round and reactive to light, EOMI. Neck: Supple Chest: Bilateral vesicular breath sounds, no rales or wheezes. Cardiac: S1 S2 RR, no murmurs, gallops or rubs. Abdomen: Soft, obese, non-tender, no masses or organomegaly, BS audible. : No suprapubic or flank tenderness. Neuro: AAO x 3, No FND. SKIN: No rashes, good skin turgor. Extremities: No edema. Labs: Recent Labs 06/01/22 0219 06/01/22 0920 06/02/22 1835 06/03/22 0421 WBC -- -- 11.9* 17.1* RBC -- -- 3.91* 4.01* HGB -- 13.0 11.6* 11.8* HCT -- 39.3* 34.9* 36.3* MCV -- -- 89.3 90.5 MCH -- -- 29.7 29.4 MCHC -- -- 33.2 32.5 RDW -- -- 13.5 13.4 PLT 216 -- 154 190 MPV -- -- 10.5 10.8 BMP: Recent Labs 06/02/22 0530 06/02/22 1819 06/02/22 1835 06/03/22 0421 NA 140 -- 138 139 K 4.6 -- 5.0 5.3 CL 110* -- 111* 111* CO2 17* -- 19* 20 BUN 22* -- 20 23* CREATININE 1.79* 1.87* 1.94* 2.15* GLUCOSE 103* -- 93 113* CALCIUM 10.6* -- 9.1 8.8 MARIO: Lab Results Component Value Date/Time MARIO NEGATIVE 08/30/2021 10:34 AM SPEP: Lab Results Component Value Date/Time PROT 7.7 10/06/2021 11:32 AM ALBCAL 3.1 09/02/2021 12:25 PM ALBPCT 53 09/02/2021 12:25 PM LABALPH 0.4 09/02/2021 12:25 PM LABALPH 0.8 09/02/2021 12:25 PM A1PCT 7 09/02/2021 12:25 PM A2PCT 13 09/02/2021 12:25 PM LABBETA 0.9 09/02/2021 12:25 PM BETAPCT 16 09/02/2021 12:25 PM GAMGLOB 0.7 09/02/2021 12:25 PM GGPCT 11 09/02/2021 12:25 PM PATH ELECTRONICALLY SIGNED. ZOE STERN M.D. 09/02/2021 12:25 PM PATH ELECTRONICALLY SIGNED. ZOE STERN M.D. 09/02/2021 12:25 PM C3: Lab Results Component Value Date/Time C3 183 09/02/2021 12:25 PM C4: Lab Results Component Value Date/Time C4 29 09/02/2021 12:25 PM MPO ANCA: Lab Results Component Value Date/Time MPO <0.3 08/30/2021 10:34 AM PR3 ANCA: Lab Results Component Value Date/Time PR3 0.9 08/30/2021 10:34 AM Hep BsAg: Lab Results Component Value Date/Time HEPBSAG NONREACTIVE 09/02/2021 12:25 PM Hep C AB: Lab Results Component Value Date/Time HEPCAB NONREACTIVE 09/02/2021 12:25 PM Urinalysis/Chemistries: Lab Results Component Value Date/Time NITRU NEGATIVE 05/30/2022 08:30 PM COLORU Yellow 05/30/2022 08:30 PM PHUR 5.5 05/30/2022 08:30 PM WBCUA 0 TO 2 05/30/2022 08:30 PM RBCUA 0 TO 2 05/30/2022 08:30 PM SPECGRAV 1.019 05/30/2022 08:30 PM LEUKOCYTESUR NEGATIVE 05/30/2022 08:30 PM UROBILINOGEN Normal 05/30/2022 08:30 PM BILIRUBINUR NEGATIVE 05/30/2022 08:30 PM GLUCOSEU 3+ 05/30/2022 08:30 PM KETUA NEGATIVE 05/30/2022 08:30 PM Urine Creatinine: Lab Results Component Value Date/Time LABCREA 123.3 05/23/2022 02:21 AM Radiology: Reviewed. Assessment: Acute Kidney Injury likely due to uncontrolled hypertension and possibly exacerbated by underlying cardiac issues, had to cut back to baseline, now after CABG and hypotension requiring pressor support, likely seems to have developed rather HIT of ATN, creatinine still evolving. NSTEMI- status post cardiac catheterization on 05/26/2022 found to have multivessel coronary artery disease, now status post CABG x2 06/02/2022. Patient will require staged PCI as CT surgery was unable to graft RCA. CKD 3 likely due to diabetic and hypertensive nephrosclerosis baseline creatinine of around 1.2-1.5 mg/dl. Hypertension. Morbid obesity. History of proteinuria. History of primary hyperparathyroidism and hypercalcemia. Diabetes type 2. Ischemic cardiopathy with a EF of 35% as per 2D echo done in August 2021. For sleep apnea. History of CVA. Cystic appearing lesion measuring 3.0 cm in the right kidney as per renal ultrasound done on 05/23/2022. Patient does have an outpatient neurology appointment with Dr. Victoria in in [place] on 06/21/2022 and will follow-up about his renal cysts there. Plan: Continue monitor off IV fluids and diuretics for now. Encourage good oral intake. Monitor strict I's and O's and renal function. Would recommend avoiding nephrotoxic agents such as vancomycin, as much as possible. Vanco level today and in AM. Repeat BMP today evening. Patient will require staged PCI as per cardiology note, would recommend holding off currently until renal function improves further, unless emergent. Check PVR and if greater than 250 cc, will require Stone catheter placement again and possible urology consult. BMP in a.m. as well. Will follow. Nutrition Please ensure that patient is on a renal diet/TF. Avoid nephrotoxic drugs/contrast exposure. Talib Saldaña MD [facility] This note is created with the assistance of a speech-recognition program. While intending to generate a document that actually reflects the content of the visit, no guarantees can be provided that every mistake has been identified and corrected by editing. Stone was inserted and 350 immediately drained into stone bag. Per Dr. Saldaña nephrology, to check a PVR and if greater than [address] stone. However patient has not voided since stone removal. Bladder scan showed 25ml. Cage Shift Manager updated Randy Machado NP and was told to place stone. Images from the original note were not included. [employer] Progress Note Date: 06/03/2022 Patient name: Elias Walker Date of admission: 05/23/2022 12:00 PM Date of : 1985 PCP: Jose Khanna APRN - RECREATION SUPERVISOR Reason for Admission: NSTEMI (non-ST elevated myocardial infarction) (HCC) [I21.4] Subjective: Seen and examined by bedside no acute overnight events. Telemetry showed sinus rhythm with heart rate 70-90. Blood pressure 102/64 on exam this a.m. Chest tubes noted. Medications: Scheduled Meds: sodium chloride flush 5-40 mL IntraVENous 2 times per day aspirin 81 mg Oral Daily clopidogrel 75 mg Oral Daily amiodarone 200 mg Oral TID mupirocin Each Nostril BID polyethylene glycol 17 g Oral Daily sennosides-docusate sodium 1 tablet Oral BID metoprolol tartrate 12.5 mg Oral BID atorvastatin 20 mg Oral Nightly pantoprazole 40 mg Oral Daily pantoprazole (PROTONIX) 40 mg injection 40 mg IntraVENous Daily insulin glargine 0.15 Units/kg SubCUTAneous Nightly insulin lispro 0-6 Units SubCUTAneous TID WC insulin lispro 0-3 Units SubCUTAneous Nightly ceFAZolin (ANCEF) IVPB 3,000 mg IntraVENous Q8H Continuous Infusions: sodium chloride 50 mL/hr at 06/03/223 sodium chloride 25 mL/hr at 06/03/22 0043 propofol Stopped (06/02/22 2213) insulin 5.88 Units/hr (06/03/22 1326) dextrose CBC: Recent Labs 06/01/22 0219 06/01/22 0920 06/02/22183406/03/22420 WBC -- -- 11.9* 17.1* HGB -- 13.0 11.6* 11.8* PLT 216 -- 154 190 BMP: Recent Labs 06/02/22 0530 06/02/22 18106/02/22183406/03/22420 NA 140 -- 138 139 K 4.6 -- 5.0 5.3 CL 110* -- 111* 111* CO2 17* -- 19* 20 BUN 22* -- 20 23* CREATININE 1.79* 1.87* 1.94* 2.15* GLUCOSE 103* -- 93 113* Hepatic:No results for input(s): AST, ALT, ALB, BILITOT, ALKPHOS in the last 72 hours. Troponin: No results for input(s): TROPHS in the last 72 hours. BNP: No results for input(s): BNP in the last 72 hours. Lipids: No results for input(s): CHOL, HDL in the last 72 hours. Invalid input(s): LDLCALCU INR: Recent Labs 06/02/22183406/03/22420 INR 1.3 1.1 EKG: Date: 05/24/22 Reading: Normal sinus rhythm Nonspecific ST and T wave abnormality Abnormal ECG When compared with ECG of 23-MAY-2022 13:07, No significant change was found LAST ECHO: Date: 09/02/2021 Findings Summary: The study was performed by the Rn Acute Care, Cardiac Fellow, and the Acid Wash Operator in the [place] [place] without complications. Consent was obtained from the family. The patient tolerated the procedure well. Conscious sedation was used. No clots were visualized in the left atrial appendage. Estimated ejection fraction is 50% No valvular vegetations or thrombus were identified Echo 05/25/22 Summary Left ventricle is normal in size with increased septal wall thickness. Definity was utilized to better visualize endocardial boarders. Calculated EF via Lara's method (with Definity) is 68%. Evidence of diastolic dysfunction. Mitral valve sclerosis without stenosis. Mitral annular calcification is seen. Trivial tricuspid regurgitation. Estimated right ventricular systolic pressure is 36 mmHg. Cardiac Cath 05/27/22 Findings: LMCA: Diffuse irregularities 20-30%. LAD: Multiple stenosis. Lesion on Prox LAD: 90% stenosis. Lesion on Mid LAD: 80% stenosis. Lesion on Dist LAD: 80% stenosis. LCx: Single stenosis. Lesion on Prox CX: 70% stenosis. RCA: Multiple stenosis. Lesion on Mid RCA: 90% stenosis. Lesion on R PDA: Ostial.80% stenosis. Coronary Tree Dominance: Right LV Analysis LV function assessed as:Normal. The LV gram was performed in the SALDANA 30 position. LVEF: 60%. Conclusions: Multi-vessel Coronary Artery Disease. Normal LV systolic function. Recommendations CTS consult for CABG. Medical therapy as needed. Risk factor modification. Objective: Vitals: BP (!) 110/52 Pulse 81 Temp 97.9 F (36.6 C) (Oral) Resp 18 Ht 5' 4 (1.626 m) Wt 279 lb 12.2 oz (126.9 kg) SpO2 95% BMI 48.02 kg/m General appearance: alert and cooperative with exam HEENT: Head: Normocephalic, no lesions, without obvious abnormality. Neck:no JVD, trachea midline, no adenopathy Lungs: Clear to auscultation, dim throughout. Heart: Regular rate and rhythm, s1/s2 auscultated, no murmurs, SR Abdomen: soft, non-tender, bowel sounds active,morbidly obese Extremities: no edema Neurologic: not done Assessment / Acute Cardiac Problems: NSTEMI status postcardiac cath showing multivessel CAD status post CABG on 06/02/22 Will need staged PCI to RCA, unable to bypass due to lack of conduit Preserved LV systolic function HTN urgency-resolved OZZIE on CKD3 - worsening renal function Morbid obesity DM2 Plan of Treatment: Amiodarone 200 mg TID. Monitor on telemetry. Daily EKG, monitor for Qtc prolongation Continue on DAPT; aspirin and Plavix Continue on Lopressor 12.5 mg twice daily Lipitor 80 mg po qd Cardiac Rehab start in patient Tight glycemic control as per surgery Will need staged PCI to RCA, likely next week prior to discharge. Will need nephrology clearance prior to possible intervention [employer] [phone] Attending Physician Statement I have discussed the case of Elias Walker including pertinent history and exam findings with the student/resident/fellow. I have seen and examined the patient and the salguero elements of the encounter have been performed by me. I agree with the assessment, plan and orders as documented by the resident With changes made to the note. . [employer] [phone] Physical Therapy Facility/Department: [place] [id number]- S[facility] Physical Therapy Initial Assessment Name: Elias Walker : 1985 Date of Service: 06/03/2022 Chief Complaint Patient presents with Chest Pain No longer has chest pain, presented to [facility] with chest pain Polydipsia S/p CABGx3 06/02 Discharge Recommendations: Therapy recommended at discharge PT Equipment Recommendations Equipment Needed: No Other: owns rollator Patient Diagnosis(es): There were no encounter diagnoses. Past Medical History: has a past medical history of CKD (chronic kidney disease), stage III (HCC), Dilated cardiomyopathy (HCC), Hypertension, Persistent proteinuria, Priapism, unspecified, and Primary hypertension. Past Surgical History: has a past surgical history that includes Penis surgery (01/31/2016) and Cardiac catheterization (05/26/2022). Assessment Body Structures, Functions, Activity Limitations Requiring Skilled Therapeutic Intervention: Decreased functional mobility ;Decreased ADL status;Decreased body mechanics;Decreased tolerance to work activity;Decreased strength;Decreased endurance;Decreased balance;Decreased high-level IADLs;Increased pain Assessment: pt is s/p CABG x3 on 06/02. At this time pt ambulates 40' withCGA and RW ~ gait appears steday but slow pt does demonstrate L toe out due to leg length discrepancy. Chair follow used and pt required seated break after 40' of ambulation and was brought back to room in chair. Further pt complets STS 2x with CGA and proper use of hear hugger. pt demonstrates decreased balance, endurance, functional mobility, and strength. At this time skilled PT is needed to promote retrun to baseline function. pt does appear they will be safe to return home with supervision and OP PT. Therapy Prognosis: Good Decision Making: Medium Complexity Requires PT Follow-Up: Yes Activity Tolerance Activity Tolerance: Patient tolerated evaluation without incident Plan Physcial Therapy Plan General Plan: 6-7 times per week Current Treatment Recommendations: Strengthening, ROM, Balance training, Functional mobility training, Endurance training, Transfer training, Neuromuscular re-education, Stair training, Gait training, Manual, Therapeutic activities, Home exercise program, Safety education & training, Patient/Caregiver education & training, Equipment evaluation, education, & procurement Safety Devices Type of Devices: All fall risk precautions in place, Call light within reach, Chair alarm in place, Nurse notified, Gait belt, Patient at risk for falls, Left in chair Restraints Restraints Initially in Place: No Restrictions Restrictions/Precautions Restrictions/Precautions: Cardiac Required Braces or Orthoses?: Yes Required Braces or Orthoses Other: Heart Hugger Brace Position Activity Restriction Sternal Precautions: No Pulling, 5# Lifting Restrictions, No Pushing Other position/activity restrictions: ambulate patient, up in chair; s/p CABG x2 06/03/22 Subjective Pain: 4/10 surgical site prior to mobility 5/10 after General Chart Reviewed: Yes Patient assessed for rehabilitation services?: Yes Response To Previous Treatment: Not applicable Family / Caregiver Present: Yes (pt sig other) Follows Commands: Within Functional Limits Other (Comment): pt follows all commands however towards end of session after mobility pt would intermenten space out but pt and pts sig other reports this is baseline for them General Comment Comments: per RN pt okay for PT and pt agreeable; RN also okay for pt to be taken of suction Subjective Subjective: pt reports 4/10 chest pain prior to mobility and 5/10 after Social/Functional History Social/Functional History Lives With: Significant other, Daughter (10 yo) Type of Home: Trailer Home Layout: One level Home Access: Stairs to enter with rails Entrance Stairs - Number of Steps: 3 Entrance Stairs - Rails: Left Bathroom Shower/Tub: Walk-in shower Bathroom Toilet: Handicap height Bathroom Equipment: Tub transfer bench, Grab bars in shower Home Equipment: Cane, Rollator (uses no DME at baseline) Receives Help From: Family ADL Assistance: Independent Homemaking Assistance: Independent Homemaking Responsibilities: Yes Meal Prep Responsibility: Primary Laundry Responsibility: Primary Cleaning Responsibility: Primary Shopping Responsibility: Primary Ambulation Assistance: Independent Transfer Assistance: Independent Active Architectural Engineer: Yes Mode of Transportation: [employer] Occupation: Unemployed Leisure & Hobbies: Eat, video games Additional Comments: Signficant other is able to provide assistance PRN, works outside the home 2x/week Vision/Hearing Vision Vision: Impaired Vision Exceptions: Wears glasses at all times Hearing Hearing: Within functional limits Cognition Orientation Orientation Level: Oriented to place;Oriented to time;Oriented to situation;Oriented to person Cognition Overall Cognitive Status: Exceptions Arousal/Alertness: Appropriate responses to stimuli Following Commands: Follows multistep commands with increased time;Follows multistep commands with repitition Attention Span: Appears intact Memory: Appears intact Safety Judgement: Good awareness of safety precautions Objective Heart Rate: 83 BP: 104/65 MAP (Calculated): 78 Resp: 16 SpO2: 100 % O2 Device: Nasal cannula Comment: vitals stable during evaluation; max HR noted at 86; pt on 1.5L NC prior to mobility and O2 at 98% O2 removed and pt maintaind 97% O2 saturation; RN aware and okay with NC staying off. Observation/Palpation Posture: Good Strength RLE Strength RLE: WFL Comment: not formally assessed pt able to complete STS with no use of UE Strength LLE Strength LLE: WFL Comment: not formally assessed pt able to complete STS with no use of UE Bed mobility Bed Mobility Comments: not assessed pt in bedside chair on PT arrival and in chair on PT exit Transfers Sit to Stand: Contact guard assistance Stand to Sit: Contact guard assistance Comment: CGA and completed 2x with RW Ambulation Device: Rolling Walker Assistance: Contact guard assistance Gait Deviations: Decreased step length Distance: 40' Comments: see assessment Balance Posture: Good Sitting - Static: Good Sitting - Dynamic: Good Standing - Static: Fair;+ Standing - Dynamic: Fair Comments: standing balance assessed with RW; AM-PAC Score AM-PAC Inpatient Mobility Raw Score : 17 (06/03/221121) AM-PAC Inpatient T-Scale Score : 42.13 (06/03/221121) Mobility Inpatient CMS 0-100% Score: 50.57 (06/03/221121) Mobility Inpatient CMS G-Code Modifier : CK (06/03/221121) Goals Short Term Goals Time Frame for Short Term Goals: 14 visits Short Term Goal 1: pt will be IND with HEP and maintain sternal precautions 100% of time Short Term Goal 2: pt will be IND with transfers Short Term Goal 3: pt will be mod I for ambulation for 300' Short Term Goal 4: pt will complete at least 3 steps with L hand rain and CGA Short Term Goal 5: pt will demonstrate dynamic standing balance of at least good Education Patient Education Education Given To: Patient Education Provided: Role of Therapy;Plan of Care Education Provided Comments: pt and sig other educated on PT purpose and POC as well as sternal precautions, use of heart hugger, and use of RW. Education Method: Demonstration Barriers to Learning: None Education Outcome: Verbalized understanding;Demonstrated understanding Therapy Time Individual Concurrent Group Co-treatment Time In 0842 Time Out 0917 Minutes 35 Timed Code Treatment Minutes: 8 Minutes Chuck Yates Evaluation/treatment performed by Student PT under the supervision of co-signing PT who agrees with all evaluation/treatment and documentation. [facility] Cardiothoracic Surgery Daily Progress Note Surgeon: Dr Ariel Purdy POD# 1 S/P : CORONARY ARTERY BYPASS X 2, ON PUMP, CESAR, STERNALOCK 360 Subjective: Mr. Walker is a 36 y.o. year-old male status post CABGx2 on 06/02/2022 Patient was seen and examined at bedside this morning without any complaints, drowsy. Vital Signs: BP 104/65 Pulse 83 Temp 98.2 F (36.8 C) Resp 16 Ht 5' 4 (1.626 m) Wt 279 lb 12.2 oz (126.9 kg) SpO2 100% BMI 48.02 kg/m O2 Flow Rate (L/min): 2 L/min Admit Weight: Weight: 280 lb (127 kg) WEIGHTWeight: 279 lb 12.2 oz (126.9 kg) I/O's: I/O last 3 completed shifts: In: 3602.7 [P.O.:360; I.V.:1742.7; Blood:1000; IV Piggyback:500] Out: 3845 [Urine:2875; Blood:700; Chest Tube:270] Data: CBC: Recent Labs 06/01/22 0219 06/01/22 0920 06/02/22183406/03/22 0421 WBC -- -- 11.9* 17.1* HGB -- 13.0 11.6* 11.8* HCT -- 39.3* 34.9* 36.3* MCV -- -- 89.3 90.5 PLT 216 -- 154 190 BMP: Recent Labs 06/02/22 0530 06/02/22 1819 06/02/22183406/03/22 0421 NA 140 -- 138 139 K 4.6 -- 5.0 5.3 CL 110* -- 111* 111* CO2 17* -- 19* 20 BUN 22* -- 20 23* CREATININE 1.79* 1.87* 1.94* 2.15* PT/INR: Recent Labs 06/02/22183406/03/22 0421 PROTIME 15.8* 14.6 INR 1.3 1.1 APTT: Recent Labs 06/01/22 1615 06/01/22 2316 06/02/221834 APTT 60.4* 66.0* 28.1 Chest X-Ray: 06/03/2022 FINDINGS: AP portable view of the chest time stamped at 440 hours demonstrates prior median sternotomy. Right IJ catheter terminates in the superior vena cava. Left-sided chest tubes in situ. Stable cardiomegaly. Prior endotracheal and intestinal tubes have been removed. Vascular congestion and atelectasis are noted without gross effusion or extrapleural air. Impression Interval removal of endotracheal and intestinal tubes. Continue cardiomegaly and vascular congestion. Support devices as above. Scheduled Meds: sodium chloride flush 5-40 mL IntraVENous 2 times per day aspirin 81 mg Oral Daily clopidogrel 75 mg Oral Daily amiodarone 200 mg Oral TID mupirocin Each Nostril BID polyethylene glycol 17 g Oral Daily sennosides-docusate sodium 1 tablet Oral BID metoprolol tartrate 12.5 mg Oral BID atorvastatin 20 mg Oral Nightly pantoprazole 40 mg Oral Daily pantoprazole (PROTONIX) 40 mg injection 40 mg IntraVENous Daily insulin glargine 0.15 Units/kg SubCUTAneous Nightly insulin lispro 0-6 Units SubCUTAneous TID WC insulin lispro 0-3 Units SubCUTAneous Nightly ceFAZolin (ANCEF) IVPB 3,000 mg IntraVENous Q8H Continuous Infusions: sodium chloride 50 mL/hr at 06/03/22 0043 sodium chloride 25 mL/hr at 06/03/22 0043 propofol Stopped (06/02/22 2213) insulin 0.96 Units/hr (06/03/22 0800) dextrose Physical Exam: General: A&O x 3, NAD noted Heart: Normal S1, S2, RRR, No murmurs noted Sternum: surgical island dressing in place, CDI, pacing wires Lungs: Diminished BS bilaterally at the bases. CT's in place to -20. No air leak noted Abdomen: Soft, non tender, non distended, Hypoactive BS x 4 : Stone in place Extremities: No edema noted bilateral LE. EVH sites: CDI Assessment & Plan: Mr. Wakler is a 36 y.o. year-old male status post CABGx2 on 06/03/2022. No issues or events noted with the patient overnight. Neuro: #Post-op pain - Continue current Pain management CV: #S/p CABGx2 EF 50% - unable to graft RCA due to lack of conduit, will need PCI to RCA as OP - HDS, off gtts - Continue current CV medications per cardiology recs Resp: #Post-op respiratory insufficency - Incentive Spirometry / Pulmonary hygiene - Follow-up CXR and ABG - CT drainage 250ml GI: - Advance diet as tolerated to cardiac diet - post-op PU prophylaxis - Bowel regimen PRN /Lytes: - stone to monitor strict UOP - Replace e-lytes per protocol, check BMP daily - CKDIII, nephrology on board. Baseline sCr 1.2-1.5 Heme: # post-surgical blood loss anemia - CTM daily CBC SCD and DVT prophylaxis with lovenox ID: - was receiving vanco 2G BID for surgical prophy, d/c'd today after reviewing with pharmacy D/C planning: - OOB to chair - Ambulation with PT 3x daily - Patient plan for home discharge Beta- Ubaldo: Yes Aspirin: Yes Lovenox: No GI: Yes Plavix: Yes Coumadin: No Statin: Yes TYRON: No VANESSA Ohara SPIRITUAL CARE DEPARTMENT - [facility] [place] PROGRESS NOTE Shift date: 06/03/22 Shift day: Monday Shift # 1 Room # 1015/1015-01 Name: Elias Walker Referral: nurse Admit Date & Time: 05/23/2022 12:00 PM Assessment: Elias Walker is a 36 y.o. male in the hospital recovering from surgery. Parts Expediter responded to patient's room per Spiritual Consult for 'post-surgical support'. Parts Expediter was welcomed into the room by patient and his girlfriend (Nicolle). The patient was sitting up in a chair, and his girlfriend was moving around the room. Parts Expediter observed patient to be calm, his girlfriend to be anxious, and both to be coping well. Intervention: Cage Shift Manager introduced self and title as commutator v ring assembler Cage Shift Manager offered space for the patient and his girlfriend to express feelings, needs, and concerns and provided a ministry presence. Through conversation, commutator v ring assembler learned that patient's girlfriend may need assistance with Home Away From Home in the future; she will communicate need to nurse/s and commutator v ring assembler/s when/if need arises. Parts Expediter provided a non-anxious presence, practiced active listening, and offered a blessing of peace. Outcome: Patient and his girlfriend seemed receptive to commutator v ring assembler presence and expressed gratitude for commutator v ring assembler visit. Plan: Chaplains will remain available to offer spiritual and emotional support as needed. 06/03/22 0937 Encounter Summary Service Provided For: Patient;Significant other Referral/Consult From: Nurse Support System Significant other Last Encounter 06/03/22 Complexity of Encounter Moderate Begin Time 09 End Time 09 Total Time Calculated 5 min Assessment/Intervention/Outcome Assessment Calm;Coping;Anxious Intervention Active listening;Sustaining Presence/Ministry of presence Outcome Receptive;Expressed Gratitude . Spiritual Care Department [facility] [phone] Order obtained for extubation. SpO2 of 98 on 40% FiO2. Patient extubated and placed on 3 liters/min via nasal cannula. Post extubation SpO2 is 98% with HR 74 bpm and RR 20 breaths/min. Patient had strong cough that was non-productive. Extubation Well tolerated by patient.. Breath Sounds: clear Patricio Adame RCP 1:29 AM Patient to room at 1755, placed on monitor, all lines transduced. Report given at bedside. Renal Progress Note Patient : Elias Walker; 36 y.o. Location: Attending: Solange Mercer MD Admit Date: 05/23/2022 Hospital Day: 10 Subjective: Patient seen and examined. Awake and alert. No acute events overnight noted. Patient denies any new symptoms. Have some ankle edema. Plan for CABG OR today Hemodynamically stable with BP 112/63 with heart rate 80. Saturating well on room air. Reviewed which shows sodium 140, potassium 4.6, chloride 110, bicarb 17, BUN 22, creatinine 1.79 Calcium 10.6. Has a history of hyperparathyroidism and hypercalcemia output charted 900ml Outpatient Medications: Medications Prior to Admission: Cholecalciferol (VITAMIN D3) 125 MCG (5000 UT) TABS, Take 1 tablet by mouth lisinopril (PRINIVIL;ZESTRIL) 5 MG tablet, Take 5 mg by mouth daily FLUoxetine (PROZAC) 10 MG tablet, Take 10 mg by mouth daily fluticasone (VERAMYST) 27.5 MCG/SPRAY nasal spray, 2 sprays by Each Nostril route daily cetirizine (ZYRTEC) 10 MG tablet, Take 10 mg by mouth daily carvedilol (COREG) 25 MG tablet, Take 1 tablet by mouth in the morning and 1 tablet before bedtime. NIFEdipine (PROCARDIA XL) 30 MG extended release tablet, Take 1 tablet by mouth daily Current Medications: Scheduled Meds: mupirocin Each Nostril BID insulin glargine 50 Units SubCUTAneous BID sodium chloride flush 5-40 mL IntraVENous 2 times per day metoprolol tartrate 12.5 mg Oral Once amiodarone 200 mg Oral TID mupirocin Each Nostril BID chlorhexidine Topical See Admin Instructions NIFEdipine 90 mg Oral Daily sodium chloride flush 5-40 mL IntraVENous 2 times per day fenofibrate 160 mg Oral Daily pantoprazole 40 mg Oral QAM AC carvedilol 25 mg Oral BID FLUoxetine 10 mg Oral Daily atorvastatin 80 mg Oral Nightly aspirin 81 mg Oral Daily heparin (porcine) 4,000 Units IntraVENous Once insulin lispro 0-8 Units SubCUTAneous TID WC insulin lispro 0-4 Units SubCUTAneous Nightly Continuous Infusions: sod chloride IRR soln sodium chloride Stopped (05/31/22 190) sodium chloride sodium chloride dextrose dextrose 5 % and 0.45 % NaCl Input/Output: I/O last 3 completed shifts: In: 720 [P.O.:720] Out: 950 [Urine:950]. Patient Vitals for the past 96 hrs (Last 3 readings): Weight 06/02/22 0606 279 lb 12.2 oz (126.9 kg) 06/01/22 0026 281 lb 12 oz (127.8 kg) 05/31/22 0353 282 lb 6.6 oz (128.1 kg) Vital Signs: Temperature: Temp: 98.5 F (36.9 C) TMax: Temp (24hrs), Av.2 F (36.8 C), Min:97.9 F (36.6 C), Max:98.5 F (36.9 C) Respirations: Resp: 16 Pulse: Heart Rate: 80 BP: BP: 112/63 BP Range: Systolic (24hrs), Av , Min:112 , Max:144 Diastolic (24hrs), Av, Min:63, Max:85 Physical Examination: General: AAO x 3, speaking in full sentences, no accessory muscle use. HEENT: Atraumatic, normocephalic, no throat congestion, moist mucosa. Eyes: Pupils equal, round and reactive to light, EOMI. Neck: Supple Chest: Sternotomy. Bilateral vesicular breath sounds, no rales or wheezes. Cardiac: S1 S2 RR, no murmurs, gallops or rubs. Abdomen: Soft, obese, non-tender, no masses or organomegaly, BS audible. : No suprapubic or flank tenderness. Neuro: AAO x 3, No FND. SKIN: No rashes, good skin turgor. Extremities: No edema. Labs: Recent Labs 05/30/22203106/01/22 0219 06/01/22 0920 WBC 9.9 -- -- RBC 4.67 -- -- HGB 13.9 -- 13.0 HCT 41.2 -- 39.3* MCV 88.2 -- -- MCH 29.8 -- -- MCHC 33.7 -- -- RDW 13.2 -- -- PLT 236 216 -- MPV 10.6 -- -- BMP: Recent Labs 05/31/22 1131 06/01/22 0920 06/02/22 0530 NA 137 136 140 K 4.6 4.4 4.6 CL 107 104 110* CO2 21 25 17* BUN 23* 20 22* CREATININE 1.65* 1.65* 1.79* GLUCOSE 125* 246* 103* CALCIUM 10.0 10.6* 10.6* MARIO: Lab Results Component Value Date/Time MARIO NEGATIVE 08/30/2021 10:34 AM SPEP: Lab Results Component Value Date/Time PROT 7.7 10/06/2021 11:32 AM ALBCAL 3.1 09/02/2021 12:25 PM ALBPCT 53 09/02/2021 12:25 PM LABALPH 0.4 09/02/2021 12:25 PM LABALPH 0.8 09/02/2021 12:25 PM A1PCT 7 09/02/2021 12:25 PM A2PCT 13 09/02/2021 12:25 PM LABBETA 0.9 09/02/2021 12:25 PM BETAPCT 16 09/02/2021 12:25 PM GAMGLOB 0.7 09/02/2021 12:25 PM GGPCT 11 09/02/2021 12:25 PM PATH ELECTRONICALLY SIGNED. ZOE STERN M.D. 09/02/2021 12:25 PM PATH ELECTRONICALLY SIGNED. ZOE STERN M.D. 09/02/2021 12:25 PM C3: Lab Results Component Value Date/Time C3 183 09/02/2021 12:25 PM C4: Lab Results Component Value Date/Time C4 29 09/02/2021 12:25 PM MPO ANCA: Lab Results Component Value Date/Time MPO <0.3 08/30/2021 10:34 AM PR3 ANCA: Lab Results Component Value Date/Time PR3 0.9 08/30/2021 10:34 AM Hep BsAg: Lab Results Component Value Date/Time HEPBSAG NONREACTIVE 09/02/2021 12:25 PM Hep C AB: Lab Results Component Value Date/Time HEPCAB NONREACTIVE 09/02/2021 12:25 PM Urinalysis/Chemistries: Lab Results Component Value Date/Time NITRU NEGATIVE 05/30/2022 08:30 PM COLORU Yellow 05/30/2022 08:30 PM PHUR 5.5 05/30/2022 08:30 PM WBCUA 0 TO 2 05/30/2022 08:30 PM RBCUA 0 TO 2 05/30/2022 08:30 PM SPECGRAV 1.019 05/30/2022 08:30 PM LEUKOCYTESUR NEGATIVE 05/30/2022 08:30 PM UROBILINOGEN Normal 05/30/2022 08:30 PM BILIRUBINUR NEGATIVE 05/30/2022 08:30 PM GLUCOSEU 3+ 05/30/2022 08:30 PM KETUA NEGATIVE 05/30/2022 08:30 PM Urine Creatinine: Lab Results Component Value Date/Time LABCREA 123.3 05/23/2022 02:21 AM Radiology: Reviewed. Assessment: Acute Kidney Injury likely due to uncontrolled hypertension and possibly exacerbated by underlying cardiac issues and seems to be back at baseline. NSTEMI- status post cardiac catheterization on 05/26/2022 found to have multivessel coronary disease, for Which on 06/02/2022 CKD 3 likely due to diabetic and hypertensive nephrosclerosis baseline creatinine of around 1.2-1.5 mg/dl. Hypertension. Morbid obesity. History of proteinuria. History of primary hyperparathyroidism and hypercalcemia. Diabetes type 2. Ischemic cardiopathy with a EF of 35% as per 2D echo done in August 2021. For sleep apnea. History of CVA. Cystic appearing lesion measuring 3.0 cm in the right kidney as per renal ultrasound done on 05/23/2022. Patient does have an outpatient neurology appointment with Dr. Victoria in in [place] on 06/21/2022 and will follow-up about his renal cysts there. Plan: Start him on Cinacalcet for hypercalcemia/hyperparathyroidism . Continue monitor strict I's and O's and renal function. need to be on small dose of diuretic postoperatively cleared for CABG from nephrology standpoint Will follow. Daily bmp Nutrition Please ensure that patient is on a renal diet/TF. Avoid nephrotoxic drugs/contrast exposure. Sarwat Preciado MD Internal Medicine Resident PGY [address] [facility], [place] 06/02/2022, 9:31 AM This note is created with the assistance of a speech-recognition program. While intending to generate a document that actually reflects the content of the visit, no guarantees can be provided that every mistake has been identified and corrected by editing. Images from the original note were not included. [facility] Office: [phone] Sony Raymond DO, Brodie Campos DO, Skip Diggs DO, Rubén Swain DO, Lee Ann Saldaña MD, Love Cortez MD, Sultana Harley MD, Solange Mercer MD, Augusto Santizo MD, Lukas Angulo MD, Avelino Kent DO, Yanelis Grijalva MD, Fly Zapata DO, Jeaneth Begum MD, John Ricks MD, Madison Raymond DO, Nasra Schulte MD, Alessio Bhat MD, Eddie Rader DO, Tiara Ladd MD, Emma Arnold MD, Meghann Cooper MD, Michele Hardin MD, Jerry Davis DO, Justin Gaines MD, Mayra Chicas, RECREATION SUPERVISOR, Riri Serna, RECREATION SUPERVISOR, Desire Harley, RECREATION SUPERVISOR, Ariel Stewart, RECREATION SUPERVISOR, Jennifer Magaña, [facility], Patricia Harrington, RECREATION SUPERVISOR, Pauline Charles, RECREATION SUPERVISOR, Kelli Sarah, RECREATION SUPERVISOR, Elizabeth Cummings, RECREATION SUPERVISOR, Karlie Kenney, RECREATION SUPERVISOR, ALESSANDRA CarterC, Sherron Ngo, SUPERVISOR [employer], Nyasia Lea, RECREATION SUPERVISOR, Ivonne Alicea, RECREATION SUPERVISOR [facility] IN-PATIENT SERVICE [facility] Progress Note 06/02/2022 8:30 AM Name: Elias Walker Acct: [id number] Room: Day: 10 Admit Date: 05/23/2022 12:00 PM PCP: KENNETH Taylor CNP Code Status: Full Code Subjective: C/C: Chief Complaint Patient presents with Chest Pain No longer has chest pain, presented to [facility] with chest pain Polydipsia Interval History Status: not changed. Patient seen and examined at bedside, no acute events overnight. Feeling about the same, no acute complaints OR this afternoon BS are better Creat is worse and patient is getting more acidotic Patient denies any chest pain, shortness of breath, chills, fevers, nausea or vomiting. Patient vitals, labs and all providers notes were reviewed,from overnight shift and morning updates were noted and discussed with the nurse Brief History: Per chart 36 year old male with past medical history of resistant hypertension, diabetes, CKD, Hypertriglyceridemia, hyperlipidemia, depression presents with chest pain from outlying facility. Patient being followed by cardiology and nephrology. Echo 05/23/22: Summary Left ventricle is normal in size with increased septal wall thickness. Definity was utilized to better visualize endocardial boarders. Calculated EF via Lara's method (with Definity) is 68%. Evidence of diastolic dysfunction. Mitral valve sclerosis without stenosis. Mitral annular calcification is seen. Trivial tricuspid regurgitation. Estimated right ventricular systolic pressure is 36 mmHg. Catheterization 05/26/2022: Conclusions: Multi-vessel Coronary Artery Disease. Normal LV systolic function. Recommendations CTS consult for CABG. Medical therapy as needed. Risk factor modification. Review of Systems: Review of Systems Constitutional: Negative for chills, diaphoresis and fever. HENT: Negative for congestion. Eyes: Negative for visual disturbance. Respiratory: Negative for cough, chest tightness, shortness of breath and wheezing. Cardiovascular: Negative for chest pain, palpitations and leg swelling. Gastrointestinal: Negative for abdominal pain, blood in stool, constipation, diarrhea, nausea and vomiting. Genitourinary: Negative for difficulty urinating. Neurological: Negative for dizziness, weakness, light-headedness, numbness and headaches. All other systems reviewed and are negative. Medications: Allergies: Allergies Allergen Reactions Food Watermelon, Honeydew, Cantelope Tomato Current Meds: Scheduled Meds: mupirocin Each Nostril BID insulin glargine 50 Units SubCUTAneous BID sodium chloride flush 5-40 mL IntraVENous 2 times per day metoprolol tartrate 12.5 mg Oral Once amiodarone 200 mg Oral TID mupirocin Each Nostril BID chlorhexidine Topical See Admin Instructions NIFEdipine 90 mg Oral Daily sodium chloride flush 5-40 mL IntraVENous 2 times per day fenofibrate 160 mg Oral Daily pantoprazole 40 mg Oral QAM AC carvedilol 25 mg Oral BID FLUoxetine 10 mg Oral Daily atorvastatin 80 mg Oral Nightly aspirin 81 mg Oral Daily heparin (porcine) 4,000 Units IntraVENous Once insulin lispro 0-8 Units SubCUTAneous TID WC insulin lispro 0-4 Units SubCUTAneous Nightly Continuous Infusions: sod chloride IRR soln sodium chloride Stopped (05/31/221902) sodium chloride sodium chloride dextrose dextrose 5 % and 0.45 % NaCl PRN Meds: sod chloride IRR soln, vancomycin, papaverine irrigation, heparin irrigation, sodium chloride flush, sodium chloride, calcium carbonate, fluticasone, sodium chloride flush, sodium chloride, glucose, dextrose bolus OR dextrose bolus, glucagon (rDNA), dextrose, potassium chloride OR potassium alternative oral replacement OR potassium chloride, magnesium sulfate, acetaminophen OR acetaminophen, nitroGLYCERIN, dextrose 5 % and 0.45 % NaCl, polyethylene glycol, heparin (porcine), heparin (porcine) Data: Past Medical History: has a past medical history of CKD (chronic kidney disease), stage III (HCC), Dilated cardiomyopathy (HCC), Hypertension, Persistent proteinuria, Priapism, unspecified, and Primary hypertension. Social History: reports that he quit smoking about 8 months ago. His smoking use included cigarettes. He has a 15.00 pack-year smoking history. He quit smokeless tobacco use about 2 years ago. His smokeless tobacco use included snuff. He reports current alcohol use. He reports that he does not use drugs. Family History: History reviewed. No pertinent family history. Vitals: BP 112/63 Pulse 80 Temp 98.5 F (36.9 C) (Oral) Resp 16 Ht 5' 4 (1.626 m) Wt 279 lb 12.2 oz (126.9 kg) SpO2 95% BMI 48.02 kg/m Temp (24hrs), Av.2 F (36.8 C), Min:97.9 F (36.6 C), Max:98.5 F (36.9 C) Recent Labs 06/01/22 1102 06/01/22 1559 06/01/225 06/02/22 0708 POCGLU 234* 193* 232* 90 I/O (24Hr): Intake/Output Summary (Last 24 hours) at 06/02/2022 0830 Last data filed at 06/02/2022 0606 Gross per 24 hour Intake 360 ml Output 950 ml Net -590 ml Labs: Hematology: Recent Labs 05/30/22203106/01/22 0219 06/01/22 0920 WBC 9.9 -- -- RBC 4.67 -- -- HGB 13.9 -- 13.0 HCT 41.2 -- 39.3* MCV 88.2 -- -- MCH 29.8 -- -- MCHC 33.7 -- -- RDW 13.2 -- -- PLT 236 216 -- MPV 10.6 -- -- INR 1.0 -- -- Chemistry: Recent Labs 05/31/22 1131 06/01/22 0920 06/02/22 0530 NA 137 136 140 K 4.6 4.4 4.6 CL 107 104 110* CO2 21 25 17* GLUCOSE 125* 246* 103* BUN 23* 20 22* CREATININE 1.65* 1.65* 1.79* ANIONGAP 9 7* 13 LABGLOM 55* 55* 49* CALCIUM 10.0 10.6* 10.6* Recent Labs 05/30/22203105/31/22 0530 05/31/22204106/01/22 0651 06/01/22 1102 06/01/22 1559 06/01/22203406/02/22 0708 LABA1C 10.1* -- -- -- -- -- -- -- POCGLU -- < > 195* 141* 234* 193* 232* 90 < > = values in this interval not displayed. ABG: Lab Results Component Value Date/Time POCPH 7.315 05/31/2022 05:30 AM POCPCO2 47.3 05/31/2022 05:30 AM POCPO2 115.8 05/31/2022 05:30 AM POCHCO3 24.1 05/31/2022 05:30 AM NBEA 2 05/31/2022 05:30 AM PBEA 4 09/06/2021 04:41 AM IDGJ5PHI 98 05/31/2022 05:30 AM FIO2 3.0 05/31/2022 05:30 AM Lab Results Component Value Date/Time SPECIAL R HAND 10ML 09/08/2021 10:04 AM Lab Results Component Value Date/Time CULTURE NO SIGNIFICANT GROWTH 05/30/2022 10:52 PM Radiology: No results found. Physical Examination: Physical Exam Vitals and nursing note reviewed. Constitutional: General: He is not in acute distress. Appearance: He is morbidly obese. HENT: Head: Normocephalic and atraumatic. Eyes: Conjunctiva/sclera: Conjunctivae normal. Pupils: Pupils are equal, round, and reactive to light. Cardiovascular: Rate and Rhythm: Normal rate and regular rhythm. Heart sounds: No murmur heard. Pulmonary: Effort: Pulmonary effort is normal. No accessory muscle usage or respiratory distress. Breath sounds: No stridor. No decreased breath sounds, wheezing, rhonchi or rales. Abdominal: General: Bowel sounds are normal. There is no distension. Palpations: Abdomen is soft. Abdomen is not rigid. Tenderness: There is no abdominal tenderness. There is no guarding. Musculoskeletal: General: No tenderness. Skin: General: Skin is warm and dry. Findings: No erythema, lesion or rash. Neurological: Mental Status: He is alert and oriented to person, place, and time. Cranial Nerves: No cranial nerve deficit. Motor: No seizure activity. Psychiatric: Speech: Speech normal. Behavior: Behavior normal. Behavior is cooperative. Assessment: Hospital Problems Last Modified POA * (Principal) Multiple vessel coronary artery disease 05/30/2022 Yes Hypertensive crisis 05/23/2022 Yes Acute kidney injury superimposed on CKD ([facility]) 05/31/2022 Yes NSTEMI (non-ST elevated myocardial infarction) ([facility]) 05/28/2022 Yes Morbid obesity ([facility]) 05/24/2022 Yes Anxiety 05/23/2022 Yes Allergic rhinitis 05/23/2022 Yes HHNC (hyperglycemic hyperosmolar nonketotic coma) ([facility]) 05/23/2022 Yes Essential hypertension 05/31/2022 Yes Overview Signed 09/28/2021 1:05 PM by Anna Serrano MD Blood pressures running in the 140-150 systolic range History of primary hyperparathyroidism 05/31/2022 Yes IAN (obstructive sleep apnea) 05/31/2022 Yes History of type 2 diabetes mellitus 05/31/2022 Yes Plan: NSTEMI: S/p cardiac cath 05/26, found to be with multivessel coronary artery disease. Plan is for CABG 06/02 per Cardiothoracic surgery Continue heparin drip Continue aspirin statin beta-blockers Currently on fluids per CTS ICMP from last year: EF improved on current echo OZZIE/CKD3: worsened today, discussd with nephro and likely triggered by hypercalcemia from hyperpara, Sensipar started, nephrology following DM 2 : new diagnosis for the patient, his a1c is 10.1 - Needing a lot of insulin - Continue adjusting dose of lantus, ISS - Will need insulin on discharge - consulted diabetes education and educated regarding insulin injection at home -Given low blood pressure range this morning and patient n.p.o. for surgery we will hold on Lantus Hypertensive urgency/ Essential HTN : currently controlled , continue current meds H/O CVA Morbid obesity is a complicating factor Depression. Prozac 10 mg Discussed with the patient Cystic appearing lesion measuring 3.0 cm in the right kidney as per renal ultrasound done on 05/23/2022. Patient does have an outpatient urology appointment with Dr. Victoria in in [place] on 06/21/2022 and will follow-up about his renal cysts there. Solange Mercer MD 06/02/2022 8:30 AM Pt. Up in bathroom washing with CHG, shaving of chest, bilateral arms, bilateral lower extremities completed per field underwriter at bedside. Images from the original note were not included. [employer] Progress Note Date: 06/01/2022 Patient name: Elias Walker Date of admission: 05/23/2022 12:00 PM Date of : 1985 PCP: KENNETH Taylor CNP Reason for Admission: NSTEMI (non-ST elevated myocardial infarction) ([facility]) [I21.4] Subjective: Clinical Changes /Abnormalities: Patient seen and examined in room with family member at bedside. Lying flat in bed without distress. Denies chest pain or shortness of breath. Tele/vitals/labs reviewed . Review of Systems Medications: Scheduled Meds: mupirocin Each Nostril BID insulin glargine 50 Units SubCUTAneous BID sodium chloride flush 5-40 mL IntraVENous 2 times per day metoprolol tartrate 12.5 mg Oral Once amiodarone 200 mg Oral TID mupirocin Each Nostril BID chlorhexidine Topical See Admin Instructions NIFEdipine 90 mg Oral Daily sodium chloride flush 5-40 mL IntraVENous 2 times per day fenofibrate 160 mg Oral Daily pantoprazole 40 mg Oral QAM AC carvedilol 25 mg Oral BID FLUoxetine 10 mg Oral Daily atorvastatin 80 mg Oral Nightly aspirin 81 mg Oral Daily heparin (porcine) 4,000 Units IntraVENous Once insulin lispro 0-8 Units SubCUTAneous TID WC insulin lispro 0-4 Units SubCUTAneous Nightly Continuous Infusions: sod chloride IRR soln sodium chloride Stopped (05/31/22 190) sodium chloride sodium chloride dextrose dextrose 5 % and 0.45 % NaCl heparin (PORCINE) Infusion 7.9 Units/kg/hr (06/01/22 1039) CBC: Recent Labs 05/30/22 0725 05/30/22203106/01/22 0219 06/01/22 0920 WBC -- 9.9 -- -- HGB -- 13.9 -- 13.0 PLT 228 236 216 -- BMP: Recent Labs 05/31/22 1131 06/01/22 0920 NA 137 136 K 4.6 4.4 CL 107 104 CO2 21 25 BUN 23* 20 CREATININE 1.65* 1.65* GLUCOSE 125* 246* Hepatic:No results for input(s): AST, ALT, ALB, BILITOT, ALKPHOS in the last 72 hours. Troponin: No results for input(s): TROPHS in the last 72 hours. BNP: No results for input(s): BNP in the last 72 hours. Lipids: No results for input(s): CHOL, HDL in the last 72 hours. Invalid input(s): LDLCALCU INR: Recent Labs 05/30/222031 INR 1.0 EKG: Date: 05/24/22 Reading: Normal sinus rhythm Nonspecific ST and T wave abnormality Abnormal ECG When compared with ECG of 23-MAY-2022 13:07, No significant change was found LAST ECHO: Date: 09/02/2021 Findings Summary: The study was performed by the Rn Acute Care, Cardiac Fellow, and the Acid Wash Operator in the [employer] without complications. Consent was obtained from the family. The patient tolerated the procedure well. Conscious sedation was used. No clots were visualized in the left atrial appendage. Estimated ejection fraction is 50% No valvular vegetations or thrombus were identified Echo 05/25/22 Summary Left ventricle is normal in size with increased septal wall thickness. Definity was utilized to better visualize endocardial boarders. Calculated EF via Lara's method (with Definity) is 68%. Evidence of diastolic dysfunction. Mitral valve sclerosis without stenosis. Mitral annular calcification is seen. Trivial tricuspid regurgitation. Estimated right ventricular systolic pressure is 36 mmHg. Cardiac Cath 05/27/22 Findings: LMCA: Diffuse irregularities 20-30%. LAD: Multiple stenosis. Lesion on Prox LAD: 90% stenosis. Lesion on Mid LAD: 80% stenosis. Lesion on Dist LAD: 80% stenosis. LCx: Single stenosis. Lesion on Prox CX: 70% stenosis. RCA: Multiple stenosis. Lesion on Mid RCA: 90% stenosis. Lesion on R PDA: Ostial.80% stenosis. Coronary Tree Dominance: Right LV Analysis LV function assessed as:Normal. The LV gram was performed in the SALDANA 30 position. LVEF: 60%. Conclusions: Multi-vessel Coronary Artery Disease. Normal LV systolic function. Recommendations CTS consult for CABG. Medical therapy as needed. Risk factor modification. Objective: Vitals: BP 137/85 Pulse 79 Temp 97.9 F (36.6 C) (Oral) Resp 16 Ht 5' 4 (1.626 m) Wt 281 lb 12 oz (127.8 kg) SpO2 99% BMI 48.36 kg/m General appearance: alert and cooperative with exam HEENT: Head: Normocephalic, no lesions, without obvious abnormality. Neck:no JVD, trachea midline, no adenopathy Lungs: Clear to auscultation, dim throughout. Heart: Regular rate and rhythm, s1/s2 auscultated, no murmurs, SR Abdomen: soft, non-tender, bowel sounds active,morbidly obese Extremities: no edema Neurologic: not done Assessment / Acute Cardiac Problems: NSTEMI. MVD as above HTN urgency OZZIE on CKD3 Morbid obesity DM2 Patient Active Problem List: Priapism, unspecified Cardiac tamponade Acute respiratory failure with hypoxia (HCC) Acute heart failure (HCC) Acute pulmonary edema (HCC) Pericardial effusion with cardiac tamponade Pericardial effusion Pleural effusion Rhinovirus infection Fever Sepsis due to Streptococcus species without acute organ dysfunction (HCC) Staphylococcus aureus pneumonia (HCC) Delirium Cerebral septic emboli (HCC) OZZIE (acute kidney injury) ([facility]) Hypercalcemia Cerebral embolism Cerebrovascular accident (CVA) (HCC) Septicemia (HCC) Dilated cardiomyopathy (HCC) Hypertension, essential Persistent proteinuria CKD (chronic kidney disease), stage III ([facility]) NSTEMI (non-ST elevated myocardial infarction) ([facility]) Hypertensive crisis Morbid obesity ([facility]) Anxiety Allergic rhinitis HHNC (hyperglycemic hyperosmolar nonketotic coma) ([facility]) Plan of Treatment: Stable. Cath as above. Plans for CABG on noted by CTS. Support provided. Continue ASA, statin ECHO as above. Preserved LVEF without significant valvular disease Continue Coreg and Nifedipine. No TYRON/ARB d/t CKD Will follow [employer] [phone] Images from the original note were not included. [facility] Office: [phone] Sony Raymond DO, Brodie Campos DO, Skip Diggs DO, Rubén Swain DO, Lee Ann Saldaña MD, Love Cortez MD, Sultana Harley MD, Solange Mercer MD, Augusto Santizo MD, Lukas Angulo MD, Avelino Kent DO, Yanelis Grijalva MD, Fly Zapata DO, Jeaneth Begum MD, John Ricks MD, Madison Ryamond DO, Nasra Schulte MD, Alessio Bhat MD, Eddie Rader DO, Tiara Ladd MD, Emma Arnold MD, Meghann Cooper MD, Michele Hardin MD, Jerry Davis DO, Justin Gaines MD, Mayra Chicas CNP, Riri Serna CNP, Desire Harley CNP, Ariel Stewart CNP, Jennifer Magaña, UMESH, Patricia Harrington, RECREATION SUPERVISOR, Pauline Charles RECREATION SUPERVISOR, Kelli Sarah RECREATION SUPERVISOR, Elizabeth Cummings RECREATION SUPERVISOR, Karlie Kenney CNP, WILL Carter-Abilio, Sherron Ngo, ALEJANDRO, Nyasia Lea, RECREATION SUPERVISOR, Ivonne Alicea, RECREATION SUPERVISOR [facility] IN-PATIENT SERVICE [facility] Progress Note 06/01/2022 12:59 PM Name: Elias Walker Acct: [id number] Room: IP Day: 9 Admit Date: 05/23/2022 12:00 PM PCP: KENNETH Taylor CNP Code Status: Full Code Subjective: C/C: Chief Complaint Patient presents with Chest Pain No longer has chest pain, presented to [facility] with chest pain Polydipsia Interval History Status: not changed. Patient seen and examined at bedside, no acute events overnight. Feeling about the same, no acute complaints OR in am BS still elevated Creat is about the same Patient denies any chest pain, shortness of breath, chills, fevers, nausea or vomiting. Patient vitals, labs and all providers notes were reviewed,from overnight shift and morning updates were noted and discussed with the nurse Brief History: Per chart 36 year old male with past medical history of resistant hypertension, diabetes, CKD, Hypertriglyceridemia, hyperlipidemia, depression presents with chest pain from outlying facility. Patient being followed by cardiology and nephrology. Echo 05/23/22: Summary Left ventricle is normal in size with increased septal wall thickness. Definity was utilized to better visualize endocardial boarders. Calculated EF via Lara's method (with Definity) is 68%. Evidence of diastolic dysfunction. Mitral valve sclerosis without stenosis. Mitral annular calcification is seen. Trivial tricuspid regurgitation. Estimated right ventricular systolic pressure is 36 mmHg. Catheterization 05/26/2022: Conclusions: Multi-vessel Coronary Artery Disease. Normal LV systolic function. Recommendations CTS consult for CABG. Medical therapy as needed. Risk factor modification. Review of Systems: Review of Systems Constitutional: Negative for chills, diaphoresis and fever. HENT: Negative for congestion. Eyes: Negative for visual disturbance. Respiratory: Negative for cough, chest tightness, shortness of breath and wheezing. Cardiovascular: Negative for chest pain, palpitations and leg swelling. Gastrointestinal: Negative for abdominal pain, blood in stool, constipation, diarrhea, nausea and vomiting. Genitourinary: Negative for difficulty urinating. Neurological: Negative for dizziness, weakness, light-headedness, numbness and headaches. All other systems reviewed and are negative. Medications: Allergies: Allergies Allergen Reactions Food Watermelon, Honeydew, Cantelope Tomato Current Meds: Scheduled Meds: insulin glargine 10 Units SubCUTAneous Once mupirocin Each Nostril BID insulin glargine 50 Units SubCUTAneous BID sodium chloride flush 5-40 mL IntraVENous 2 times per day metoprolol tartrate 12.5 mg Oral Once amiodarone 200 mg Oral TID mupirocin Each Nostril BID chlorhexidine Topical See Admin Instructions NIFEdipine 90 mg Oral Daily sodium chloride flush 5-40 mL IntraVENous 2 times per day fenofibrate 160 mg Oral Daily pantoprazole 40 mg Oral QAM AC carvedilol 25 mg Oral BID FLUoxetine 10 mg Oral Daily atorvastatin 80 mg Oral Nightly aspirin 81 mg Oral Daily heparin (porcine) 4,000 Units IntraVENous Once insulin lispro 0-8 Units SubCUTAneous TID WC insulin lispro 0-4 Units SubCUTAneous Nightly Continuous Infusions: sod chloride IRR soln sodium chloride Stopped (05/31/22 1903) sodium chloride sodium chloride dextrose dextrose 5 % and 0.45 % NaCl heparin (PORCINE) Infusion 7.9 Units/kg/hr (06/01/22 1039) PRN Meds: sod chloride IRR soln, vancomycin, papaverine irrigation, heparin irrigation, sodium chloride flush, sodium chloride, calcium carbonate, fluticasone, sodium chloride flush, sodium chloride, glucose, dextrose bolus OR dextrose bolus, glucagon (rDNA), dextrose, potassium chloride OR potassium alternative oral replacement OR potassium chloride, magnesium sulfate, acetaminophen OR acetaminophen, nitroGLYCERIN, dextrose 5 % and 0.45 % NaCl, polyethylene glycol, heparin (porcine), heparin (porcine) Data: Past Medical History: has a past medical history of CKD (chronic kidney disease), stage III (HCC), Dilated cardiomyopathy (HCC), Hypertension, Persistent proteinuria, Priapism, unspecified, and Primary hypertension. Social History: reports that he quit smoking about 8 months ago. His smoking use included cigarettes. He has a 15.00 pack-year smoking history. He quit smokeless tobacco use about 2 years ago. His smokeless tobacco use included snuff. He reports current alcohol use. He reports that he does not use drugs. Family History: History reviewed. No pertinent family history. Vitals: BP 134/68 Pulse 82 Temp 97.9 F (36.6 C) (Oral) Resp 16 Ht 5' 4 (1.626 m) Wt 281 lb 12 oz (127.8 kg) SpO2 96% BMI 48.36 kg/m Temp (24hrs), Av F (36.7 C), Min:97.9 F (36.6 C), Max:98.2 F (36.8 C) Recent Labs 05/31/22 1606 05/31/22 2042 06/01/22 0651 06/01/22 1102 POCGLU 129* 195* 141* 234* I/O (24Hr): Intake/Output Summary (Last 24 hours) at 06/01/2022 1259 Last data filed at 05/31/20221999 Gross per 24 hour Intake 360 ml Output -- Net 360 ml Labs: Hematology: Recent Labs 05/30/22 0725 05/30/22203106/01/22 0219 06/01/22 0920 WBC -- 9.9 -- -- RBC -- 4.67 -- -- HGB -- 13.9 -- 13.0 HCT -- 41.2 -- 39.3* MCV -- 88.2 -- -- MCH -- 29.8 -- -- MCHC -- 33.7 -- -- RDW -- 13.2 -- -- PLT 228 236 216 -- MPV -- 10.6 -- -- INR -- 1.0 -- -- Chemistry: Recent Labs 05/31/22 1131 06/01/22 0920 NA 137 136 K 4.6 4.4 CL 107 104 CO2 21 25 GLUCOSE 125* 246* BUN 23* 20 CREATININE 1.65* 1.65* ANIONGAP 9 7* LABGLOM 55* 55* CALCIUM 10.0 10.6* Recent Labs 05/30/22203105/31/22 0530 05/31/22 0754 05/31/22 1102 05/31/22 1606 05/31/22 2042 06/01/22 0651 06/01/22 1102 LABA1C 10.1* -- -- -- -- -- -- -- POCGLU -- < > 134* 126* 129* 195* 141* 234* < > = values in this interval not displayed. ABG: Lab Results Component Value Date/Time POCPH 7.315 05/31/2022 05:30 AM POCPCO2 47.3 05/31/2022 05:30 AM POCPO2 115.8 05/31/2022 05:30 AM POCHCO3 24.1 05/31/2022 05:30 AM NBEA 2 05/31/2022 05:30 AM PBEA 4 09/06/2021 04:41 AM [id number] 98 05/31/2022 05:30 AM FIO2 3.0 05/31/2022 05:30 AM Lab Results Component Value Date/Time SPECIAL R HAND 10ML 09/08/2021 10:04 AM Lab Results Component Value Date/Time CULTURE NO SIGNIFICANT GROWTH 05/30/2022 10:52 PM Radiology: No results found. Physical Examination: Physical Exam Vitals and nursing note reviewed. Constitutional: General: He is not in acute distress. Appearance: He is morbidly obese. HENT: Head: Normocephalic and atraumatic. Eyes: Conjunctiva/sclera: Conjunctivae normal. Pupils: Pupils are equal, round, and reactive to light. Cardiovascular: Rate and Rhythm: Normal rate and regular rhythm. Heart sounds: No murmur heard. Pulmonary: Effort: Pulmonary effort is normal. No accessory muscle usage or respiratory distress. Breath sounds: No stridor. No decreased breath sounds, wheezing, rhonchi or rales. Abdominal: General: Bowel sounds are normal. There is no distension. Palpations: Abdomen is soft. Abdomen is not rigid. Tenderness: There is no abdominal tenderness. There is no guarding. Musculoskeletal: General: No tenderness. Skin: General: Skin is warm and dry. Findings: No erythema, lesion or rash. Neurological: Mental Status: He is alert and oriented to person, place, and time. Cranial Nerves: No cranial nerve deficit. Motor: No seizure activity. Psychiatric: Speech: Speech normal. Behavior: Behavior normal. Behavior is cooperative. Assessment: Hospital Problems Last Modified POA * (Principal) Multiple vessel coronary artery disease 05/30/2022 Yes Hypertensive crisis 05/23/2022 Yes Acute kidney injury superimposed on CKD ([facility]) 05/31/2022 Yes NSTEMI (non-ST elevated myocardial infarction) ([facility]) 05/28/2022 Yes Morbid obesity ([facility]) 05/24/2022 Yes Anxiety 05/23/2022 Yes Allergic rhinitis 05/23/2022 Yes HHNC (hyperglycemic hyperosmolar nonketotic coma) ([facility]) 05/23/2022 Yes Essential hypertension 05/31/2022 Yes Overview Signed 09/28/2021 1:05 PM by Anna Serrano MD Blood pressures running in the 140-150 systolic range History of primary hyperparathyroidism 05/31/2022 Yes IAN (obstructive sleep apnea) 05/31/2022 Yes History of type 2 diabetes mellitus 05/31/2022 Yes Plan: NSTEMI: S/p cardiac cath 05/26, found to be with multivessel coronary artery disease. Plan is for CABG 06/02 per Cardiothoracic surgery Continue heparin drip Continue aspirin statin beta-blockers Currently on fluids per CTS ICMP from last year: EF improved on current echo OZZIE/CKD3: currently resolved, nephrology following , continue gentle IV hydration status post heart catheterization. DM 2 : new diagnosis for the patient, his a1c is 10.1 - Needing a lot of insulin - Continue adjusting dose of lantus, ISS - Will need insulin on discharge - consulted to diabetes education Hypertensive urgency/ Essential HTN : currently controlled , continue current meds H/O CVA Morbid obesity is a complicating factor Depression. Prozac 10 mg Discussed with the patient and his SO Solange Mercer MD 06/01/2022 12:59 PM Renal Progress Note Patient : Elias Walker; 36 y.o. Location: Attending: Solange Mercer MD Admit Date: 05/23/2022 Hospital Day: 9 Subjective: Patient seen and examined. Awake and alert. No acute events overnight noted. Patient denies any new symptoms. Patient With surgery moved to . Hemodynamically stable with BP 137/87 with heart rate 79. Saturating well on room air. Patient is status post cardiac catheterization on 05/26/2022 found to have multivessel coronary disease, Labs show a calcium of 10.6, creatinine was 1.6 yesterday, 1.7 today quite possibly secondary to vasoconstriction because of hypercalcemia. He does have a history of primary hyperparathyroidism and currently was not on any specific meds for that. He will be started on Sensipar. Output not charted. Outpatient Medications: Medications Prior to Admission: Cholecalciferol (VITAMIN D3) 125 MCG (5000 UT) TABS, Take 1 tablet by mouth lisinopril (PRINIVIL;ZESTRIL) 5 MG tablet, Take 5 mg by mouth daily FLUoxetine (PROZAC) 10 MG tablet, Take 10 mg by mouth daily fluticasone (VERAMYST) 27.5 MCG/SPRAY nasal spray, 2 sprays by Each Nostril route daily cetirizine (ZYRTEC) 10 MG tablet, Take 10 mg by mouth daily carvedilol (COREG) 25 MG tablet, Take 1 tablet by mouth in the morning and 1 tablet before bedtime. NIFEdipine (PROCARDIA XL) 30 MG extended release tablet, Take 1 tablet by mouth daily Current Medications: Scheduled Meds: mupirocin Each Nostril BID insulin glargine 50 Units SubCUTAneous BID sodium chloride flush 5-40 mL IntraVENous 2 times per day metoprolol tartrate 12.5 mg Oral Once amiodarone 200 mg Oral TID mupirocin Each Nostril BID chlorhexidine Topical See Admin Instructions NIFEdipine 90 mg Oral Daily sodium chloride flush 5-40 mL IntraVENous 2 times per day fenofibrate 160 mg Oral Daily pantoprazole 40 mg Oral QAM AC carvedilol 25 mg Oral BID FLUoxetine 10 mg Oral Daily atorvastatin 80 mg Oral Nightly aspirin 81 mg Oral Daily heparin (porcine) 4,000 Units IntraVENous Once insulin lispro 0-8 Units SubCUTAneous TID WC insulin lispro 0-4 Units SubCUTAneous Nightly Continuous Infusions: sod chloride IRR soln sodium chloride Stopped (05/31/22 1903) sodium chloride sodium chloride dextrose dextrose 5 % and 0.45 % NaCl heparin (PORCINE) Infusion 9.9 Units/kg/hr (06/01/22 0500) Input/Output: I/O last 3 completed shifts: In: 590 [P.O.:590] Out: - . Patient Vitals for the past 96 hrs (Last 3 readings): Weight 06/01/22 0026 281 lb 12 oz (127.8 kg) 05/31/22 0353 282 lb 6.6 oz (128.1 kg) 05/30/22 0600 281 lb 15.5 oz (127.9 kg) Vital Signs: Temperature: Temp: 97.9 F (36.6 C) TMax: Temp (24hrs), Av.9 F (36.6 C), Min:97.6 F (36.4 C), Max:98.2 F (36.8 C) Respirations: Resp: 16 Pulse: Heart Rate: 79 BP: BP: 137/85 BP Range: Systolic (24hrs), Av , Min:93 , Max:137 Diastolic (24hrs), Av, Min:46, Max:99 Physical Examination: General: AAO x 3, speaking in full sentences, no accessory muscle use. HEENT: Atraumatic, normocephalic, no throat congestion, moist mucosa. Eyes: Pupils equal, round and reactive to light, EOMI. Neck: Supple Chest: Sternotomy. Bilateral vesicular breath sounds, no rales or wheezes. Cardiac: S1 S2 RR, no murmurs, gallops or rubs. Abdomen: Soft, obese, non-tender, no masses or organomegaly, BS audible. : No suprapubic or flank tenderness. Neuro: AAO x 3, No FND. SKIN: No rashes, good skin turgor. Extremities: No edema. Labs: MARIO: Lab Results Component Value Date/Time MARIO NEGATIVE 08/30/2021 10:34 AM SPEP: Lab Results Component Value Date/Time PROT 7.7 10/06/2021 11:32 AM ALBCAL 3.1 09/02/2021 12:25 PM ALBPCT 53 09/02/2021 12:25 PM LABALPH 0.4 09/02/2021 12:25 PM LABALPH 0.8 09/02/2021 12:25 PM A1PCT 7 09/02/2021 12:25 PM A2PCT 13 09/02/2021 12:25 PM LABBETA 0.9 09/02/2021 12:25 PM BETAPCT 16 09/02/2021 12:25 PM GAMGLOB 0.7 09/02/2021 12:25 PM GGPCT 11 09/02/2021 12:25 PM PATH ELECTRONICALLY SIGNED. ZOE STERN M.D. 09/02/2021 12:25 PM PATH ELECTRONICALLY SIGNED. ZOE STERN M.D. 09/02/2021 12:25 PM C3: Lab Results Component Value Date/Time C3 183 09/02/2021 12:25 PM C4: Lab Results Component Value Date/Time C4 29 09/02/2021 12:25 PM MPO ANCA: Lab Results Component Value Date/Time MPO <0.3 08/30/2021 10:34 AM PR3 ANCA: Lab Results Component Value Date/Time PR3 0.9 08/30/2021 10:34 AM Hep BsAg: Lab Results Component Value Date/Time HEPBSAG NONREACTIVE 09/02/2021 12:25 PM Hep C AB: Lab Results Component Value Date/Time HEPCAB NONREACTIVE 09/02/2021 12:25 PM Latest Reference Range & Units 06/02/22 05:30 Potassium 3.7 - 5.3 mmol/L 4.6 Chloride 98 - 107 mmol/L 110 (H) CO2 20 - 31 mmol/L 17 (L) BUN,BUNPL 6 - 20 mg/dL 22 (H) Creatinine 0.70 - 1.20 mg/dL 1.79 (H) Anion Gap 9 - 17 mmol/L 13 Est, Glom Filt Rate >60 mL/min/1.73m2 49 (L) Glucose, Random 70 - 99 mg/dL 103 (H) CALCIUM, SERUM, [id number] 8.6 - 10.4 mg/dL 10.6 (H) (H): Data is abnormally high (L): Data is abnormally low Urinalysis/Chemistries: Lab Results Component Value Date/Time NITRU NEGATIVE 05/30/2022 08:30 PM COLORU Yellow 05/30/2022 08:30 PM PHUR 5.5 05/30/2022 08:30 PM WBCUA 0 TO 2 05/30/2022 08:30 PM RBCUA 0 TO 2 05/30/2022 08:30 PM SPECGRAV 1.019 05/30/2022 08:30 PM LEUKOCYTESUR NEGATIVE 05/30/2022 08:30 PM UROBILINOGEN Normal 05/30/2022 08:30 PM BILIRUBINUR NEGATIVE 05/30/2022 08:30 PM GLUCOSEU 3+ 05/30/2022 08:30 PM KETUA NEGATIVE 05/30/2022 08:30 PM Urine Creatinine: Lab Results Component Value Date/Time LABCREA 123.3 05/23/2022 02:21 AM Radiology: Reviewed. Assessment: Acute Kidney Injury likely due to uncontrolled hypertension and possibly exacerbated by underlying cardiac issues. Patient has also had intermittent hypercalcemia. NSTEMI- status post cardiac catheterization on 05/26/2022 found to have multivessel coronary disease, for Which on 06/02/2022 CKD 3 likely due to diabetic and hypertensive nephrosclerosis baseline creatinine of around 1.2-1.5 mg/dl. Hypertension. Morbid obesity. History of proteinuria. History of primary hyperparathyroidism and hypercalcemia. Diabetes type 2. Ischemic cardiopathy with a EF of 35% as per 2D echo done in August 2021. For sleep apnea. History of CVA. Cystic appearing lesion measuring 3.0 cm in the right kidney as per renal ultrasound done on 05/23/2022. Patient does have an outpatient neurology appointment with Dr. Victoria in in [place] on 06/21/2022 and will follow-up about his renal cysts there. Plan: Continue current blood pressure medications. Continue monitor strict I's and O's and renal function. Labs reviewed, okay for surgery cleared for CABG from nephrology standpoint Start patient on Sensipar. Nutrition Please ensure that patient is on a renal diet/TF. Avoid nephrotoxic drugs/contrast exposure. Sarwat Preciado MD Internal Medicine Resident PGY 3 [facility] 06/01/2022, 9:39 AM Attending Physician Statement I have discussed the care of Elias Walker, including pertinent history and exam findings with the resident/fellow. I have reviewed the salguero elements of all parts of the encounter with the resident/fellow. I have seen and examined the patient with the resident/fellow. I agree with the assessment and plan and status of the problem list as documented. Patient seen and examined. He is tentatively set up to have open heart surgery possibly this afternoon. His calcium level is 10.6 and his creatinine did inched up to 1.79 today. I suspect this is from vasoconstriction and hypercalcemia that he has had intermittently because of his history of primary hyperparathyroidism. I will start him on low-dose Sensipar. We will follow-up on labs and patient postoperatively. Donta Marcum MD , This note is created with the assistance of a speech-recognition program. While intending to generate a document that actually reflects the content of the visit, no guarantees can be provided that every mistake has been identified and corrected by editing. Renal Progress Note Patient : Elias Walker; 36 y.o. Location: Attending: Solange Mercer MD Admit Date: 05/23/2022 Hospital Day: 8 Subjective: Patient seen and examined. Awake and alert. No acute events overnight noted. Patient denies any new symptoms. Plan for CABG today. Hemodynamically stable. On room air saturating well Patient is status post cardiac catheterization on 05/26/2022 found to have multivessel coronary disease, No morning labs were drawn. Urine output not documented in the chart. Creatinine has been stable at around 1.4 mg/dl. Outpatient Medications: Medications Prior to Admission: Cholecalciferol (VITAMIN D3) 125 MCG (5000 UT) TABS, Take 1 tablet by mouth lisinopril (PRINIVIL;ZESTRIL) 5 MG tablet, Take 5 mg by mouth daily FLUoxetine (PROZAC) 10 MG tablet, Take 10 mg by mouth daily fluticasone (VERAMYST) 27.5 MCG/SPRAY nasal spray, 2 sprays by Each Nostril route daily cetirizine (ZYRTEC) 10 MG tablet, Take 10 mg by mouth daily carvedilol (COREG) 25 MG tablet, Take 1 tablet by mouth in the morning and 1 tablet before bedtime. NIFEdipine (PROCARDIA XL) 30 MG extended release tablet, Take 1 tablet by mouth daily Current Medications: Scheduled Meds: papaverine vancomycin sterile water protamine propofol vancomycin ceFAZolin 3000 mg in 30 mL SWFI IV Syringe insulin glargine 50 Units SubCUTAneous BID sodium chloride flush 5-40 mL IntraVENous 2 times per day metoprolol tartrate 12.5 mg Oral Once amiodarone 200 mg Oral TID mupirocin Each Nostril BID chlorhexidine 15 mL Mouth/Throat Once chlorhexidine Topical See Admin Instructions NIFEdipine 90 mg Oral Daily sodium chloride flush 5-40 mL IntraVENous 2 times per day fenofibrate 160 mg Oral Daily pantoprazole 40 mg Oral QAM AC carvedilol 25 mg Oral BID FLUoxetine 10 mg Oral Daily atorvastatin 80 mg Oral Nightly aspirin 81 mg Oral Daily heparin (porcine) 4,000 Units IntraVENous Once insulin lispro 0-8 Units SubCUTAneous TID WC insulin lispro 0-4 Units SubCUTAneous Nightly Continuous Infusions: sod chloride IRR soln sodium chloride 75 mL/hr at 05/31/22 0014 sodium chloride sodium chloride dextrose dextrose 5 % and 0.45 % NaCl heparin (PORCINE) Infusion Stopped (05/31/22 0600) Input/Output: I/O last 3 completed shifts: In: 590 [P.O.:590] Out: - . Patient Vitals for the past 96 hrs (Last 3 readings): Weight 05/31/22 0353 282 lb 6.6 oz (128.1 kg) 05/30/22 0600 281 lb 15.5 oz (127.9 kg) 05/29/22 0600 283 lb 11.7 oz (128.7 kg) Vital Signs: Temperature: Temp: 97.6 F (36.4 C) TMax: Temp (24hrs), Av.1 F (36.7 C), Min:97.6 F (36.4 C), Max:98.6 F (37 C) Respirations: Resp: 12 Pulse: Heart Rate: 89 BP: BP: 132/83 BP Range: Systolic (24hrs), Av , Min:120 , Max:141 Diastolic (24hrs), Av, Min:73, Max:83 Physical Examination: General: AAO x 3, speaking in full sentences, no accessory muscle use. HEENT: Atraumatic, normocephalic, no throat congestion, moist mucosa. Eyes: Pupils equal, round and reactive to light, EOMI. Neck: Supple Chest: Bilateral vesicular breath sounds, no rales or wheezes. Cardiac: S1 S2 RR, no murmurs, gallops or rubs. Abdomen: Soft, obese, non-tender, no masses or organomegaly, BS audible. : No suprapubic or flank tenderness. Neuro: AAO x 3, No FND. SKIN: No rashes, good skin turgor. Extremities: No edema. Labs: Recent Labs 05/30/22 0725 05/30/22 2032 WBC -- 9.9 RBC -- 4.67 HGB -- 13.9 HCT -- 41.2 MCV -- 88.2 MCH -- 29.8 MCHC -- 33.7 RDW -- 13.2 PLT 228 236 MPV -- 10.6 BMP: Recent Labs 05/29/22 0553 NA 137 K 4.9 CL 107 CO2 21 BUN 15 CREATININE 1.47* GLUCOSE 184* CALCIUM 10.6* MARIO: Lab Results Component Value Date/Time MARIO NEGATIVE 08/30/2021 10:34 AM SPEP: Lab Results Component Value Date/Time PROT 7.7 10/06/2021 11:32 AM ALBCAL 3.1 09/02/2021 12:25 PM ALBPCT 53 09/02/2021 12:25 PM LABALPH 0.4 09/02/2021 12:25 PM LABALPH 0.8 09/02/2021 12:25 PM A1PCT 7 09/02/2021 12:25 PM A2PCT 13 09/02/2021 12:25 PM LABBETA 0.9 09/02/2021 12:25 PM BETAPCT 16 09/02/2021 12:25 PM GAMGLOB 0.7 09/02/2021 12:25 PM GGPCT 11 09/02/2021 12:25 PM PATH ELECTRONICALLY SIGNED. ZOE STERN M.D. 09/02/2021 12:25 PM PATH ELECTRONICALLY SIGNED. ZOE STERN M.D. 09/02/2021 12:25 PM C3: Lab Results Component Value Date/Time C3 183 09/02/2021 12:25 PM C4: Lab Results Component Value Date/Time C4 29 09/02/2021 12:25 PM MPO ANCA: Lab Results Component Value Date/Time MPO <0.3 08/30/2021 10:34 AM PR3 ANCA: Lab Results Component Value Date/Time PR3 0.9 08/30/2021 10:34 AM Hep BsAg: Lab Results Component Value Date/Time HEPBSAG NONREACTIVE 09/02/2021 12:25 PM Hep C AB: Lab Results Component Value Date/Time HEPCAB NONREACTIVE 09/02/2021 12:25 PM Urinalysis/Chemistries: Lab Results Component Value Date/Time NITRU NEGATIVE 05/30/2022 08:30 PM COLORU Yellow 05/30/2022 08:30 PM PHUR 5.5 05/30/2022 08:30 PM WBCUA 0 TO 2 05/30/2022 08:30 PM RBCUA 0 TO 2 05/30/2022 08:30 PM SPECGRAV 1.019 05/30/2022 08:30 PM LEUKOCYTESUR NEGATIVE 05/30/2022 08:30 PM UROBILINOGEN Normal 05/30/2022 08:30 PM BILIRUBINUR NEGATIVE 05/30/2022 08:30 PM GLUCOSEU 3+ 05/30/2022 08:30 PM KETUA NEGATIVE 05/30/2022 08:30 PM Urine Creatinine: Lab Results Component Value Date/Time LABCREA 123.3 05/23/2022 02:21 AM Radiology: Reviewed. Assessment: Acute Kidney Injury likely due to uncontrolled hypertension and possibly exacerbated by underlying cardiac issues and seems to be back at baseline. NSTEMI- status post cardiac catheterization on 05/26/2022 found to have multivessel coronary disease, waiting for CABG likely be done tomorrow a.m. per CT surgery. CKD 3 likely due to diabetic and hypertensive nephrosclerosis baseline creatinine of around 1.2-1.5 mg/dl. Hypertension. Morbid obesity. History of proteinuria. History of primary hyperparathyroidism and hypercalcemia. Diabetes type 2. Ischemic cardiopathy with a EF of 35% as per 2D echo done in August 2021. For sleep apnea. History of CVA. Cystic appearing lesion measuring 3.0 cm in the right kidney as per renal ultrasound done on 05/23/2022. Patient does have an outpatient neurology appointment with Dr. Victoria in in [place] on 06/21/2022 and will follow-up about his renal cysts there. Plan: Continue current blood pressure medications. Continue monitor strict I's and O's and renal function. Patient is okay for CABG from nephrology standpoint. Patient to OR around 11:00 AM. BMP in AM. Will follow. Nutrition Please ensure that patient is on a renal diet/TF. Avoid nephrotoxic drugs/contrast exposure. Sarwat Preciado MD Internal Medicine Resident PGY [address] [facility] [place] 05/31/2022, 9:54 AM Attending Physician Statement I have discussed the care of Elias Walker, including pertinent history and exam findings with the resident/fellow. I have reviewed the salguero elements of all parts of the encounter with the resident/fellow. I have seen and examined the patient with the resident/fellow. I agree with the assessment and plan and status of the problem list as documented. Patient seen and examined. He is laying down flat in bed, no acute distress. He is scheduled for surgery this afternoon. Creatinine continues to be stable at 1.4. His baseline creatinine is 1.2-1.5. We will follow the patient postoperatively. Donta Marcum MD , MD This note is created with the assistance of a speech-recognition program. While intending to generate a document that actually reflects the content of the visit, no guarantees can be provided that every mistake has been identified and corrected by editing. Images from the original note were not included. [facility] Office: [phone] Sony Raymond DO, Brodie Campos DO, Skip Diggs DO, Rubén Swain DO, Lee Ann Saldaña MD, Love Cortez MD, Sultana Harley MD, Solange Mercer MD, Augusto Santizo MD, Lukas Angulo MD, Avelino Kent DO, Yanelis Grijalva MD, Fly Zapata DO, Jeaneth Begum MD, John Ricks MD, Madison Raymond DO, Nasra Schulte MD, Alessio Bhat MD, Eddie Rader DO, Tiara Ladd MD, Emma Arnold MD, Meghann Cooper MD, Michele Hardin MD, Jerry Davis DO, Justin Gaines MD, Mayra Chicas CNP, Riri Serna CNP, Desire Harley CNP, Ariel Stewart CNP, Jennifer Magaña, UMESH, Patricia Harrington CNP, Pauline Charles CNP, Kelli Sarah CNP, Elizabeth Cummings CNP, Karlie Kenney CNP, Ben Cesar PA-C, Sherron Ngo, ALEJANDRO, Nyasia Lea CNP, Ivonne Alicea, JOSE [facility] IN-PATIENT SERVICE [facility] Progress Note 05/31/2022 4:17 PM Name: Elias Walker Acct: [id number] Room: IP Day: 8 Admit Date: 05/23/2022 12:00 PM PCP: Jose Khanna APRN - JOSE Code Status: Full Code Subjective: C/C: Chief Complaint Patient presents with Chest Pain No longer has chest pain, presented to [facility] with chest pain Polydipsia Interval History Status: not changed. Patient seen and examined at bedside, no acute events overnight. Feeling about the same Per report scheduled for OR this am Patient denies any chest pain, shortness of breath, chills, fevers, nausea or vomiting. Patient vitals, labs and all providers notes were reviewed,from overnight shift and morning updates were noted and discussed with the nurse Brief History: Per chart 36 year old male with past medical history of resistant hypertension, diabetes, CKD, Hypertriglyceridemia, hyperlipidemia, depression presents with chest pain from outlying facility. Patient being followed by cardiology and nephrology. Echo 05/23/22: Summary Left ventricle is normal in size with increased septal wall thickness. Definity was utilized to better visualize endocardial boarders. Calculated EF via Lara's method (with Definity) is 68%. Evidence of diastolic dysfunction. Mitral valve sclerosis without stenosis. Mitral annular calcification is seen. Trivial tricuspid regurgitation. Estimated right ventricular systolic pressure is 36 mmHg. Catheterization 05/26/2022: Conclusions: Multi-vessel Coronary Artery Disease. Normal LV systolic function. Recommendations CTS consult for CABG. Medical therapy as needed. Risk factor modification. Review of Systems: Review of Systems Constitutional: Negative for chills, diaphoresis and fever. HENT: Negative for congestion. Eyes: Negative for visual disturbance. Respiratory: Negative for cough, chest tightness, shortness of breath and wheezing. Cardiovascular: Negative for chest pain, palpitations and leg swelling. Gastrointestinal: Negative for abdominal pain, blood in stool, constipation, diarrhea, nausea and vomiting. Genitourinary: Negative for difficulty urinating. Neurological: Negative for dizziness, weakness, light-headedness, numbness and headaches. All other systems reviewed and are negative. Medications: Allergies: Allergies Allergen Reactions Food Watermelon, Honeydew, Cantelope Tomato Current Meds: Scheduled Meds: papaverine vancomycin sterile water protamine propofol vancomycin ceFAZolin 3000 mg in 30 mL SWFI IV Syringe insulin glargine 50 Units SubCUTAneous BID sodium chloride flush 5-40 mL IntraVENous 2 times per day metoprolol tartrate 12.5 mg Oral Once amiodarone 200 mg Oral TID mupirocin Each Nostril BID chlorhexidine Topical See Admin Instructions NIFEdipine 90 mg Oral Daily sodium chloride flush 5-40 mL IntraVENous 2 times per day fenofibrate 160 mg Oral Daily pantoprazole 40 mg Oral QAM AC carvedilol 25 mg Oral BID FLUoxetine 10 mg Oral Daily atorvastatin 80 mg Oral Nightly aspirin 81 mg Oral Daily heparin (porcine) 4,000 Units IntraVENous Once insulin lispro 0-8 Units SubCUTAneous TID WC insulin lispro 0-4 Units SubCUTAneous Nightly Continuous Infusions: sod chloride IRR soln sodium chloride 75 mL/hr at 05/31/22 0014 sodium chloride sodium chloride dextrose dextrose 5 % and 0.45 % NaCl heparin (PORCINE) Infusion 7.9 Units/kg/hr (05/31/22 1328) PRN Meds: sod chloride IRR soln, vancomycin, papaverine irrigation, heparin irrigation, sodium chloride flush, sodium chloride, calcium carbonate, fluticasone, sodium chloride flush, sodium chloride, glucose, dextrose bolus OR dextrose bolus, glucagon (rDNA), dextrose, potassium chloride OR potassium alternative oral replacement OR potassium chloride, magnesium sulfate, acetaminophen OR acetaminophen, nitroGLYCERIN, dextrose 5 % and 0.45 % NaCl, polyethylene glycol, heparin (porcine), heparin (porcine) Data: Past Medical History: has a past medical history of CKD (chronic kidney disease), stage III (HCC), Dilated cardiomyopathy (HCC), Hypertension, Persistent proteinuria, Priapism, unspecified, and Primary hypertension. Social History: reports that he quit smoking about 8 months ago. His smoking use included cigarettes. He has a 15.00 pack-year smoking history. He quit smokeless tobacco use about 2 years ago. His smokeless tobacco use included snuff. He reports current alcohol use. He reports that he does not use drugs. Family History: History reviewed. No pertinent family history. Vitals: BP 134/65 Pulse 72 Temp 98.2 F (36.8 C) (Oral) Resp 18 Ht 5' 4 (1.626 m) Wt 282 lb 6.6 oz (128.1 kg) SpO2 98% BMI 48.48 kg/m Temp (24hrs), Av.3 F (36.8 C), Min:97.6 F (36.4 C), Max:99.7 F (37.6 C) Recent Labs 05/31/22 0530 05/31/22 0754 05/31/22 11005/31/22 1606 POCGLU 144* 134* 126* 129* I/O (24Hr): Intake/Output Summary (Last 24 hours) at 05/31/2022 1617 Last data filed at 05/30/20221999 Gross per 24 hour Intake 230 ml Output -- Net 230 ml Labs: Hematology: Recent Labs 05/30/22 0725 05/30/222031 WBC -- 9.9 RBC -- 4.67 HGB -- 13.9 HCT -- 41.2 MCV -- 88.2 MCH -- 29.8 MCHC -- 33.7 RDW -- 13.2 PLT 228 236 MPV -- 10.6 INR -- 1.0 Chemistry: Recent Labs 05/29/22 0553 05/31/22 1131 NA 137 137 K 4.9 4.6 CL 107 107 CO2 21 21 GLUCOSE 184* 125* BUN 15 23* CREATININE 1.47* 1.65* ANIONGAP 9 9 LABGLOM >60 55* CALCIUM 10.6* 10.0 Recent Labs 05/30/22 1637 05/30/22 19405/30/22203105/31/22 0530 05/31/22 0754 05/31/22 1102 05/31/22 1606 LABA1C -- -- 10.1* -- -- -- -- POCGLU 276* 270* -- 144* 134* 126* 129* ABG: Lab Results Component Value Date/Time POCPH 7.315 05/31/2022 05:30 AM POCPCO2 47.3 05/31/2022 05:30 AM POCPO2 115.8 05/31/2022 05:30 AM POCHCO3 24.1 05/31/2022 05:30 AM NBEA 2 05/31/2022 05:30 AM PBEA 4 09/06/2021 04:41 AM GNRC6NGM 98 05/31/2022 05:30 AM FIO2 3.0 05/31/2022 05:30 AM Lab Results Component Value Date/Time SPECIAL R HAND 10ML 09/08/2021 10:04 AM Lab Results Component Value Date/Time CULTURE NO GROWTH 5 DAYS 09/08/2021 10:04 AM Radiology: No results found. Physical Examination: Physical Exam Vitals and nursing note reviewed. Constitutional: General: He is not in acute distress. Appearance: He is morbidly obese. HENT: Head: Normocephalic and atraumatic. Eyes: Conjunctiva/sclera: Conjunctivae normal. Pupils: Pupils are equal, round, and reactive to light. Cardiovascular: Rate and Rhythm: Normal rate and regular rhythm. Heart sounds: No murmur heard. Pulmonary: Effort: Pulmonary effort is normal. No accessory muscle usage or respiratory distress. Breath sounds: No stridor. No decreased breath sounds, wheezing, rhonchi or rales. Abdominal: General: Bowel sounds are normal. There is no distension. Palpations: Abdomen is soft. Abdomen is not rigid. Tenderness: There is no abdominal tenderness. There is no guarding. Musculoskeletal: General: No tenderness. Skin: General: Skin is warm and dry. Findings: No erythema, lesion or rash. Neurological: Mental Status: He is alert and oriented to person, place, and time. Cranial Nerves: No cranial nerve deficit. Motor: No seizure activity. Psychiatric: Speech: Speech normal. Behavior: Behavior normal. Behavior is cooperative. Assessment: Hospital Problems Last Modified POA * (Principal) Multiple vessel coronary artery disease 05/30/2022 Yes Hypertensive crisis 05/23/2022 Yes Acute kidney injury superimposed on CKD ([facility]) 05/31/2022 Yes NSTEMI (non-ST elevated myocardial infarction) ([facility]) 05/28/2022 Yes Morbid obesity ([facility]) 05/24/2022 Yes Anxiety 05/23/2022 Yes Allergic rhinitis 05/23/2022 Yes HHNC (hyperglycemic hyperosmolar nonketotic coma) ([facility]) 05/23/2022 Yes Essential hypertension 05/31/2022 Yes Overview Signed 09/28/2021 1:05 PM by Anna Serrano MD Blood pressures running in the 140-150 systolic range History of primary hyperparathyroidism 05/31/2022 Yes IAN (obstructive sleep apnea) 05/31/2022 Yes History of type 2 diabetes mellitus 05/31/2022 Yes Plan: NSTEMI: S/p cardiac cath 05/26, found to be with multivessel coronary artery disease. Plan is for CABG today per Cardiothoracic surgery Continue heparin drip Continue aspirin statin beta-blockers CKD:. nephrology following , continue gentle IV hydration status post heart catheterization. Ordered BMP for this morning DM 2 : new diagnosis for the patient, his a1c is 10.1 - Continue adjusted dose of lantus, ISS - consult to diabetes education Hypertensive urgency: currently controlled with hypertension Morbid obesity is a complicating factor Depression. Prozac 10 mg Discussed with the patient. Solange Mercer MD 05/31/2022 4:17 PM Renal Progress Note Patient : Elias Walker; 36 y.o. Location: Attending: Avelino Kent DO Admit Date: 05/23/2022 Hospital Day: 7 Subjective: Patient was seen and examined. No new issues reported overnight. Patient is status post cardiac catheterization on 05/26/2022 found to have multivessel coronary disease, waiting for CABG likely be done tomorrow a.m. per CT surgery. BMP results from today pending. Creatinine has been stable at around 1.4 mg/dl. Urine output documented as about x2 in the last 24 hours. Outpatient Medications: Medications Prior to Admission: Cholecalciferol (VITAMIN D3) 125 MCG (5000 UT) TABS, Take 1 tablet by mouth lisinopril (PRINIVIL;ZESTRIL) 5 MG tablet, Take 5 mg by mouth daily FLUoxetine (PROZAC) 10 MG tablet, Take 10 mg by mouth daily fluticasone (VERAMYST) 27.5 MCG/SPRAY nasal spray, 2 sprays by Each Nostril route daily cetirizine (ZYRTEC) 10 MG tablet, Take 10 mg by mouth daily carvedilol (COREG) 25 MG tablet, Take 1 tablet by mouth in the morning and 1 tablet before bedtime. NIFEdipine (PROCARDIA XL) 30 MG extended release tablet, Take 1 tablet by mouth daily Current Medications: Scheduled Meds: insulin glargine 50 Units SubCUTAneous BID NIFEdipine 90 mg Oral Daily sodium chloride flush 5-40 mL IntraVENous 2 times per day fenofibrate 160 mg Oral Daily pantoprazole 40 mg Oral QAM AC carvedilol 25 mg Oral BID FLUoxetine 10 mg Oral Daily atorvastatin 80 mg Oral Nightly aspirin 81 mg Oral Daily heparin (porcine) 4,000 Units IntraVENous Once insulin lispro 0-8 Units SubCUTAneous TID WC insulin lispro 0-4 Units SubCUTAneous Nightly Continuous Infusions: sodium chloride dextrose dextrose 5 % and 0.45 % NaCl heparin (PORCINE) Infusion 7.874 Units/kg/hr (05/30/22 1249) PRN Meds: calcium carbonate, fluticasone, sodium chloride flush, sodium chloride, glucose, dextrose bolus OR dextrose bolus, glucagon (rDNA), dextrose, potassium chloride OR potassium alternative oral replacement OR potassium chloride, magnesium sulfate, acetaminophen OR acetaminophen, nitroGLYCERIN, dextrose 5 % and 0.45 % NaCl, polyethylene glycol, heparin (porcine), heparin (porcine) Input/Output: I/O last 3 completed shifts: In: 960 [P.O.:960] Out: - . Patient Vitals for the past 96 hrs (Last 3 readings): Weight 05/30/22 0600 281 lb 15.5 oz (127.9 kg) 05/29/22 0600 283 lb 11.7 oz (128.7 kg) 05/28/22 0600 284 lb 9.8 oz (129.1 kg) Vital Signs: Temperature: Temp: 97.9 F (36.6 C) TMax: Temp (24hrs), Av.1 F (36.7 C), Min:97.9 F (36.6 C), Max:98.6 F (37 C) Respirations: Resp: 16 Pulse: Heart Rate: 84 BP: BP: 129/82 BP Range: Systolic (24hrs), Av , Min:129 , Max:155 Diastolic (24hrs), Av, Min:80, Max:100 Physical Examination: General: AAO x 3, speaking in full sentences, no accessory muscle use. HEENT: Atraumatic, normocephalic, no throat congestion, moist mucosa. Eyes: Pupils equal, round and reactive to light, EOMI. Neck: Supple Chest: Bilateral vesicular breath sounds, no rales or wheezes. Cardiac: S1 S2 RR, no murmurs, gallops or rubs. Abdomen: Soft, obese, non-tender, no masses or organomegaly, BS audible. : No suprapubic or flank tenderness. Neuro: AAO x 3, No FND. SKIN: No rashes, good skin turgor. Extremities: No edema. Labs: Recent Labs 05/28/22 0422 05/30/22 0725 PLT 201 228 BMP: Recent Labs 05/28/22 0422 05/29/22 0553 NA 136 137 K 4.4 4.9 CL 107 107 CO2 19* 21 BUN 16 15 CREATININE 1.41* 1.47* GLUCOSE 163* 184* CALCIUM 10.0 10.6* MARIO: Lab Results Component Value Date/Time MARIO NEGATIVE 08/30/2021 10:34 AM SPEP: Lab Results Component Value Date/Time PROT 7.7 10/06/2021 11:32 AM ALBCAL 3.1 09/02/2021 12:25 PM ALBPCT 53 09/02/2021 12:25 PM LABALPH 0.4 09/02/2021 12:25 PM LABALPH 0.8 09/02/2021 12:25 PM A1PCT 7 09/02/2021 12:25 PM A2PCT 13 09/02/2021 12:25 PM LABBETA 0.9 09/02/2021 12:25 PM BETAPCT 16 09/02/2021 12:25 PM GAMGLOB 0.7 09/02/2021 12:25 PM GGPCT 11 09/02/2021 12:25 PM PATH ELECTRONICALLY SIGNED. ZOE STERN M.D. 09/02/2021 12:25 PM PATH ELECTRONICALLY SIGNED. ZOE STERN M.D. 09/02/2021 12:25 PM C3: Lab Results Component Value Date/Time C3 183 09/02/2021 12:25 PM C4: Lab Results Component Value Date/Time C4 29 09/02/2021 12:25 PM MPO ANCA: Lab Results Component Value Date/Time MPO <0.3 08/30/2021 10:34 AM PR3 ANCA: Lab Results Component Value Date/Time PR3 0.9 08/30/2021 10:34 AM Hep BsAg: Lab Results Component Value Date/Time HEPBSAG NONREACTIVE 09/02/2021 12:25 PM Hep C AB: Lab Results Component Value Date/Time HEPCAB NONREACTIVE 09/02/2021 12:25 PM Urinalysis/Chemistries: Lab Results Component Value Date/Time NITRU NEGATIVE 05/23/2022 02:21 AM COLORU Yellow 05/23/2022 02:21 AM PHUR 5.5 05/23/2022 02:21 AM WBCUA 2 TO 5 05/23/2022 02:21 AM RBCUA 0 TO 2 05/23/2022 02:21 AM SPECGRAV 1.025 05/23/2022 02:21 AM LEUKOCYTESUR NEGATIVE 05/23/2022 02:21 AM UROBILINOGEN Normal 05/23/2022 02:21 AM BILIRUBINUR NEGATIVE 05/23/2022 02:21 AM GLUCOSEU 3+ 05/23/2022 02:21 AM KETUA NEGATIVE 05/23/2022 02:21 AM Urine Creatinine: Lab Results Component Value Date/Time LABCREA 123.3 05/23/2022 02:21 AM Radiology: Reviewed. Assessment: Acute Kidney Injury likely due to uncontrolled hypertension and possibly exacerbated by underlying cardiac issues and seems to be back at baseline. NSTEMI- status post cardiac catheterization on 05/26/2022 found to have multivessel coronary disease, waiting for CABG likely be done tomorrow a.m. per CT surgery. CKD 3 likely due to diabetic and hypertensive nephrosclerosis baseline creatinine of around 1.2-1.5 mg/dl. Hypertension. Morbid obesity. History of proteinuria. History of primary hyperparathyroidism and hypercalcemia. Diabetes type 2. Ischemic cardiopathy with a EF of 35% as per 2D echo done in August 2021. For sleep apnea. History of CVA. Cystic appearing lesion measuring 3.0 cm in the right kidney as per renal ultrasound done on 05/23/2022. Patient does have an outpatient neurology appointment with Dr. Victoria in in [place] on 06/21/2022 and will follow-up about his renal cysts there. Plan: Continue current blood pressure medications. Continue monitor strict I's and O's and renal function. Patient is to be okay to get CABG done from nephrology standpoint, likely will be going to the OR tomorrow morning. BMP in AM. Will follow. Nutrition Please ensure that patient is on a renal diet/TF. Avoid nephrotoxic drugs/contrast exposure. Talib Saldaña MD [facility] This note is created with the assistance of a speech-recognition program. While intending to generate a document that actually reflects the content of the visit, no guarantees can be provided that every mistake has been identified and corrected by editing. Diabetes education - follow up VISIT at bedside 05/30/22 Elias Walker, follow up education on Type 2 uncontrolled,new dx. He stated family history of diabetes and aware of how to use home BG meter, used on self and with other family in past. He has helped with adm of insulins in past also. He trained at [facility] and has ability to read food labels, measure and CHO food group awareness. Update to plan for care includes patient will need OHS and plan for OR tomorrow and, With inpatient care BG are at this point with lantus 45 units BID and correction scale: Following Survival Skills education topics were reinforced as appropriate to patient plan of for care with patient and today his S.O. also at bedside: _x__ Type 2 Diabetes diagnosis as chronic and progressive 05/27/22 rs - and 05/30/22 rs follow up need to good glucose control - lower also CV risks and that diabetes is chronic and will need ongoing care _x__ Healthy eating - CHO food groups and need for CHO controlled diet. Elimination of sugary beverages, avoid skipping meal 05/26/22 rs - discussed CHO - how to count in choices and grams - CHO food groups and meal examples provided and 05/30/22 rs - to avoid sweets and keep portions of CHO - pasta, rice and or potatoes 1/4 of plate per meal _x__ Role of physical activity - bouts of walking, swimming or low impact aerobics as recommended by care providers- aim for 30 minutes per day and 05/30/22 rs - follow post op OHS guidelines _x__ Blood Glucose Self-Monitoring ( BGSM) /how to use a BG meter - Demonstrated use of a meter for education and practice of BGSM skill 05/27/22 rs - patient stated confident will be able to use a home meter - will need RX at time of discharge home 3/27/23 rs 0 SO also has Dm and can help with home BG checks __x_ Blood sugar targets Pre meal 80 - 130 and 2 hours post meal < 180 - 05/26/22 rs reinforced --and 05/30/22 rs - reinforced __x_ Hyperglycemia ( BG over 250) signs and symptoms and treatment 05/26/22 rs reinforced _x__ Hypoglycemia( BG < than 70) signs and symptoms and treatment Rule of 15 05/26/22 rs reinforced _x__ Keep BG log and take log and meter to follow up HCP appointments- stated Jose Khanna, DIRECTOR SOCIAL SERVICE 05/26/22 rs reinforced _x__ Medications - Insulin Lantus - Basal ( long acting) / Humalog- Bolus (pre meal) regime - insulin action times. 05/26/22 rs reinforced __x_ Importance of dosing rapid insulin from BG result at time of start of meal & administering within 15 minutes of eating meals ( meal time and or corrective ) __x_ Importance of taking long acting insulin at same time each day and not to skip doses ___ Demonstration of self-administering insulin via vial and syringe __x_ Demonstration of self-administering insulin via Pen and pen needle tips __x_ Reinforce safe needle / sharps disposal ___x Insulin injection site rotation _x__ Medications - Orals - unsure of home plan - briefly discussed orals as option ( metformin, sglt- 2 and glp1- ra) after CV work up and may also need isulin 05/26/22 rs reinforced Following Support materials were provided for patient to take home: _x__ Handout - What is diabetes? cornerstones4 care 2018 _x__ Handout - Eating Healthy for Life at every Meal / Plate method and grocery list from www.[employer]abetes[employer].org _x__ Handout - How to Check Your Blood Sugar from [email or web address].org _x__ Handout - Be safe with [place] teaching sheet - / [email or web address].org _x__ Handout - How to Use an Insulin Pen - handout with QR code - Health nielsen Current as of Nov 25 2020 _x__ Emergency Insert sheet for your Vehicle - ADA Diabetes Emergencies _x__ Diabetes ID card - ADA Low and High Blood Sugar and treatments _x__ [facility] Education brochure/ contact card Patient needs reinforcement. understanding of survival skills education, - discussed current insulin plans lantus at 30 units BID and pre meal correction on scale, patient did self adm insulin on 05/26/22 with bedside RN RECOMMENDATIONS INPATIENT PLAN: _x__ Cartridge Feeder Consult this admission for education on CHO diet and diet plan for home - with cardiac and dm restrictions RECOMMENDATIONS FOR OUTPATIENT PLAN: Diabetes Self-Monitoring Supplies: _x__ Preferred / formulary blood glucose meter for BGSM at home use _x__ Strips and lancets for 4 frequency of home BGSM Diabetes Medications: May be candidate for SGLT-1 - Jardiance _x__ Insulin Pen Basal / long acting - dose per MD _x__ Insulin Pen Bolus pre meal set dose or correction scale - dose per MD Diabetes Education / HCP follow -up : _x_ Would recommend follow -up education at outpatient diabetes education at [facility]. An ordered is needed for this service and can be placed via EHR. Discharge Navigator --- Med Reconciliation -- New orders for discharge tab -- search diabetic ed - REF20 - [facility] - review and sign __x_ Follow -up with HCP / PCP within one week. Patient has established PCP KHANH ZAPATA RN CDCES Images from the original note were not included. [facility] Office: [phone] Sony Raymond DO, Brodie Campos DO, Skip Diggs DO, Rubén Swain DO, Lee Ann Saldaña MD, Love Cortez MD, Sultana Harley MD, Solange Mercer MD, Augusto Santizo MD, Lukas Angulo MD, Avelino Kent DO, Yanelis Grijalva MD, Fly Zapata DO, Jeaneth Begum MD, John Ricks MD, Madison Raymond DO, Nasra Schulte MD, Alessio Bhat MD, Eddie Rader DO, Tiara Ladd MD, Emma Arnold MD, Meghann Cooper MD, Michele Hardin MD, Jennifer Guo MD, Jerry Davis DO, Justin Gaines MD, Loco Wilks MD, Mayra Chicas, RECREATION SUPERVISOR, Riri Serna RECREATION SUPERVISOR, Desire aHrley, RECREATION SUPERVISOR, Ariel Stewart, RECREATION SUPERVISOR, Jennifer Magaña, [facility], Patricia Harrington, RECREATION SUPERVISOR, Pauline Charles, RECREATION SUPERVISOR, Kelli Sarah, RECREATION SUPERVISOR, Elizabeth Cummings, RECREATION SUPERVISOR, Karlie Kenney, RECREATION SUPERVISOR, Ben Cesar PACarriC, Sherron Ngo, [facility], Nyasia Lea, RECREATION SUPERVISOR, Ivonne Alicea, RECREATION SUPERVISOR [facility] IN-PATIENT SERVICE [facility] Progress Note 05/30/2022 12:35 PM Name: Elias Walker Acct: [id number] Room: Day: 7 Admit Date: 05/23/2022 12:00 PM PCP: KENNETH Taylor CNP Code Status: Full Code Subjective: C/C: Chief Complaint Patient presents with Chest Pain No longer has chest pain, presented to [facility] with chest pain Polydipsia Interval History Status: not changed. Seen and examined, no complaints today. Discussed increasing Lantus Brief History: 36 year old male with past medical history of resistant hypertension, diabetes, CKD, Hypertriglyceridemia, hyperlipidemia, depression presents with chest pain from outlying facility. Patient being followed by cardiology and nephrology. Echo 05/23/22: Summary Left ventricle is normal in size with increased septal wall thickness. Definity was utilized to better visualize endocardial boarders. Calculated EF via Lara's method (with Definity) is 68%. Evidence of diastolic dysfunction. Mitral valve sclerosis without stenosis. Mitral annular calcification is seen. Trivial tricuspid regurgitation. Estimated right ventricular systolic pressure is 36 mmHg. Catheterization 05/26/2022: Conclusions: Multi-vessel Coronary Artery Disease. Normal LV systolic function. Recommendations CTS consult for CABG. Medical therapy as needed. Risk factor modification. Review of Systems: Review of Systems Constitutional: Negative for activity change, fatigue and fever. HENT: Negative for ear pain and sneezing. Eyes: Negative for photophobia and redness. Respiratory: Negative for cough and shortness of breath. Cardiovascular: Negative for chest pain and leg swelling. Endocrine: Negative for polyphagia and polyuria. Genitourinary: Negative for dysuria and frequency. Musculoskeletal: Negative for arthralgias and myalgias. Skin: Negative for color change and rash. Neurological: Negative for light-headedness and numbness. Psychiatric/Behavioral: Negative for behavioral problems and confusion. Medications: Allergies: Allergies Allergen Reactions Food Watermelon, Honeydew, Cantelope Tomato Current Meds: Scheduled Meds: insulin glargine 45 Units SubCUTAneous BID NIFEdipine 90 mg Oral Daily sodium chloride flush 5-40 mL IntraVENous 2 times per day fenofibrate 160 mg Oral Daily pantoprazole 40 mg Oral QAM AC carvedilol 25 mg Oral BID FLUoxetine 10 mg Oral Daily atorvastatin 80 mg Oral Nightly aspirin 81 mg Oral Daily heparin (porcine) 4,000 Units IntraVENous Once insulin lispro 0-8 Units SubCUTAneous TID WC insulin lispro 0-4 Units SubCUTAneous Nightly Continuous Infusions: sodium chloride dextrose dextrose 5 % and 0.45 % NaCl heparin (PORCINE) Infusion 7.9 Units/kg/hr (05/29/222029) PRN Meds: calcium carbonate, fluticasone, sodium chloride flush, sodium chloride, glucose, dextrose bolus OR dextrose bolus, glucagon (rDNA), dextrose, potassium chloride OR potassium alternative oral replacement OR potassium chloride, magnesium sulfate, acetaminophen OR acetaminophen, nitroGLYCERIN, dextrose 5 % and 0.45 % NaCl, polyethylene glycol, heparin (porcine), heparin (porcine) Data: Past Medical History: has a past medical history of CKD (chronic kidney disease), stage III (HCC), Dilated cardiomyopathy (HCC), Hypertension, Persistent proteinuria, Priapism, unspecified, and Primary hypertension. Social History: reports that he quit smoking about 8 months ago. His smoking use included cigarettes. He has a 15.00 pack-year smoking history. He quit smokeless tobacco use about 2 years ago. His smokeless tobacco use included snuff. He reports current alcohol use. He reports that he does not use drugs. Family History: History reviewed. No pertinent family history. Vitals: BP 129/82 Pulse 84 Temp 97.9 F (36.6 C) (Oral) Resp 16 Ht 5' 4 (1.626 m) Wt 281 lb 15.5 oz (127.9 kg) SpO2 93% BMI 48.40 kg/m Temp (24hrs), Av.1 F (36.7 C), Min:97.9 F (36.6 C), Max:98.6 F (37 C) Recent Labs 05/29/22 1607 05/29/22195805/30/22 0748 05/30/22 1152 POCGLU 303* 210* 158* 182* I/O (24Hr): Intake/Output Summary (Last 24 hours) at 05/30/2022 1235 Last data filed at 05/29/20221999 Gross per 24 hour Intake 360 ml Output -- Net 360 ml Labs: Hematology: Recent Labs 05/28/22 04205/30/22 0725 PLT 201 228 Chemistry: Recent Labs 05/28/2242105/29/22 0553 NA 136 137 K 4.4 4.9 CL 107 107 CO2 19* 21 GLUCOSE 163* 184* BUN 16 15 CREATININE 1.41* 1.47* ANIONGAP 10 9 LABGLOM >60 >60 CALCIUM 10.0 10.6* Recent Labs 05/29/22 0639 05/29/22 1108 05/29/22 1607 05/29/22195805/30/22 0748 05/30/22 1152 POCGLU 172* 235* 303* 210* 158* 182* ABG: Lab Results Component Value Date/Time POCPH 7.392 09/06/2021 04:41 AM POCPCO2 48.2 09/06/2021 04:41 AM POCPO2 98.0 09/06/2021 04:41 AM POCHCO3 29.3 09/06/2021 04:41 AM NBEA 2 09/03/2021 04:09 AM PBEA 4 09/06/2021 04:41 AM HAIK2LMC 98 09/06/2021 04:41 AM FIO2 40.0 09/06/2021 04:41 AM Lab Results Component Value Date/Time SPECIAL R HAND 10ML 09/08/2021 10:04 AM Lab Results Component Value Date/Time CULTURE NO GROWTH 5 DAYS 09/08/2021 10:04 AM Radiology: US RETROPERITONEAL COMPLETE Result Date: 05/24/2022 Normal renal length and echotexture without obstruction. Physical Examination: Physical Exam Constitutional: Appearance: He is obese. He is not ill-appearing. HENT: Head: Normocephalic and atraumatic. Right Ear: External ear normal. Left Ear: External ear normal. Nose: Nose normal. Mouth/Throat: Mouth: Mucous membranes are dry. Eyes: Pupils: Pupils are equal, round, and reactive to light. Cardiovascular: Rate and Rhythm: Normal rate and regular rhythm. Heart sounds: No murmur heard. Pulmonary: Comments: Decreased breath sounds bilaterally Abdominal: General: There is no distension. Palpations: Abdomen is soft. Tenderness: There is no abdominal tenderness. Musculoskeletal: Right lower leg: No edema. Left lower leg: No edema. Skin: General: Skin is warm and dry. Capillary Refill: Capillary refill takes less than 2 seconds. Neurological: General: No focal deficit present. Mental Status: He is alert and oriented to person, place, and time. Mental status is at baseline. Psychiatric: Mood and Affect: Mood normal. Behavior: Behavior normal. Assessment: Hospital Problems Last Modified POA * (Principal) CAD, multiple vessel 05/28/2022 Yes Hypertensive crisis 05/23/2022 Yes Acute kidney injury superimposed on CKD ([facility]) 05/28/2022 Yes NSTEMI (non-ST elevated myocardial infarction) ([facility]) 05/28/2022 Yes Morbid obesity ([facility]) 05/24/2022 Yes Anxiety 05/23/2022 Yes Allergic rhinitis 05/23/2022 Yes HHNC (hyperglycemic hyperosmolar nonketotic coma) ([facility]) 05/23/2022 Yes Primary hypertension 05/28/2022 Yes Overview Signed 09/28/2021 1:05 PM by Anna Serrano MD Blood pressures running in the 140-150 systolic range Plan: NSTEMI with multivessel coronary artery disease. Appreciate cardiology and cardiothoracic surgery recommendations. Continue heparin drip CKD with improving creatinine. Appreciate nephrology recommendations. Continue gentle IV hydration status post heart catheterization. Continue to monitor BUN and creatinine Diabetes hba1c 10.1 lantus, ISS, consult to diabetes education, increase Lantus Depression. Prozac 10 mg Increase Lantus, otherwise no changes to medications. Educated on diabetes and weight loss Avelino Kent DO 05/30/2022 12:35 PM Comprehensive Nutrition Assessment Type and Reason for Visit: Initial (LOS) Nutrition Recommendations/Plan: Continue current diet. Monitor PO intakes as tolerated. Monitor need for additional Diabetic diet education. Nutrition Assessment: Chart reviewed/pt seen for length of stay. Admitted with c/o chest pain, polyuria, and increased thirst along with blood sugars greater than 1000 mg/dL. PMH: CKD, HTN. Newly diagnosed with DM - noted census enumerator providing education during admission. Pt reports having a good appetite and eating well at meals. Recorded PO intakes of 75-100% per chart review and taking fluids well. Labs/Meds reviewed. Nutrition Related Findings: Labs/Meds reviewed. Last BM 05/29. Wound Type: None Current Nutrition Intake & Therapies: Average Meal Intake: 76-100% Average Supplements Intake: None Ordered ADULT DIET; Regular; Low Potassium (Less than 3000 mg/day) Anthropometric Measures: Height: 5' 4 (162.6 cm) [place] Body Weight (IBW): 130 lbs (59 kg) Admission Body Weight: 282 lb 3 oz (128 kg) Current Body Weight: 281 lb 15.5 oz (127.9 kg), 216.9 % IBW. Weight Source: Bed Scale Current BMI (kg/m2): 48.4 Usual Body Weight: 235 lb 6 oz (106.8 kg) (10/06/21 bed scale per chart review) % Weight Change (Calculated): 19.8 BMI Categories: Obese Class 3 (BMI 40.0 or greater) Estimated Daily Nutrient Needs: Energy Requirements Based On: Formula Weight Used for Energy Requirements: Admission Energy (kcal/day): 2500 kcals/day Weight Used for Protein Requirements: [place] Protein (g/day): 100-130 gm pro/day Method Used for Fluid Requirements: Other (Comment) Fluid (ml/day): per MD Nutrition Diagnosis: Altered nutrition-related lab values related to endocrine dysfuntion (newly diagnosed DM) as evidenced by lab values (hyperglycemia upon admission) Nutrition Interventions: Food and/or Nutrient Delivery: Continue Current Diet Nutrition Education/Counseling: No recommendation at this time Coordination of Nutrition Care: Continue to monitor while inpatient Plan of Care discussed with: Patient Nutrition Monitoring and Evaluation: Behavioral-Environmental Outcomes: None Identified Food/Nutrient Intake Outcomes: Food and Nutrient Intake Physical Signs/Symptoms Outcomes: Biochemical Data, GI Status, Weight, Skin, Nutrition Focused Physical Findings Discharge Planning: Recommend pursue outpatient diabetes education Juju Mishra RD, [place] Contact: [phone] Images from the original note were not included. [employer] Progress Note Date: 05/30/2022 Patient name: Elias Walker Date of admission: 05/23/2022 12:00 PM Date of : 1985 PCP: KENNETH Taylor CNP Reason for Admission: NSTEMI (non-ST elevated myocardial infarction) ([facility]) [I21.4] Subjective: Clinical Changes /Abnormalities: Patient seen and examined, sitting in chair with no distress. Denies chest pain or shortness of breath. Tele/vitals/labs reviewed . Review of Systems Medications: Scheduled Meds: insulin glargine 45 Units SubCUTAneous BID NIFEdipine 90 mg Oral Daily sodium chloride flush 5-40 mL IntraVENous 2 times per day fenofibrate 160 mg Oral Daily pantoprazole 40 mg Oral QAM AC carvedilol 25 mg Oral BID FLUoxetine 10 mg Oral Daily atorvastatin 80 mg Oral Nightly aspirin 81 mg Oral Daily heparin (porcine) 4,000 Units IntraVENous Once insulin lispro 0-8 Units SubCUTAneous TID WC insulin lispro 0-4 Units SubCUTAneous Nightly Continuous Infusions: sodium chloride dextrose dextrose 5 % and 0.45 % NaCl heparin (PORCINE) Infusion 7.9 Units/kg/hr (05/29/22 2030) CBC: Recent Labs 05/28/22 0422 05/30/22 0725 PLT 201 228 BMP: Recent Labs 05/28/22 0422 05/29/22 0553 NA 136 137 K 4.4 4.9 CL 107 107 CO2 19* 21 BUN 16 15 CREATININE 1.41* 1.47* GLUCOSE 163* 184* Hepatic:No results for input(s): AST, ALT, ALB, BILITOT, ALKPHOS in the last 72 hours. Troponin: No results for input(s): TROPHS in the last 72 hours. BNP: No results for input(s): BNP in the last 72 hours. Lipids: No results for input(s): CHOL, HDL in the last 72 hours. Invalid input(s): LDLCALCU INR: No results for input(s): INR in the last 72 hours. EKG: Date: 05/24/22 Reading: Normal sinus rhythm Nonspecific ST and T wave abnormality Abnormal ECG When compared with ECG of 23-MAY-2022 13:07, No significant change was found LAST ECHO: Date: 09/02/2021 Findings Summary: The study was performed by the Rn Acute Care, Cardiac Fellow, and the Acid Wash Operator in the Lens [employer] without complications. Consent was obtained from the family. The patient tolerated the procedure well. Conscious sedation was used. No clots were visualized in the left atrial appendage. Estimated ejection fraction is 50% No valvular vegetations or thrombus were identified Echo 05/25/22 Summary Left ventricle is normal in size with increased septal wall thickness. Definity was utilized to better visualize endocardial boarders. Calculated EF via Lara's method (with Definity) is 68%. Evidence of diastolic dysfunction. Mitral valve sclerosis without stenosis. Mitral annular calcification is seen. Trivial tricuspid regurgitation. Estimated right ventricular systolic pressure is 36 mmHg. Cardiac Cath 05/27/22 Findings: LMCA: Diffuse irregularities 20-30%. LAD: Multiple stenosis. Lesion on Prox LAD: 90% stenosis. Lesion on Mid LAD: 80% stenosis. Lesion on Dist LAD: 80% stenosis. LCx: Single stenosis. Lesion on Prox CX: 70% stenosis. RCA: Multiple stenosis. Lesion on Mid RCA: 90% stenosis. Lesion on R PDA: Ostial.80% stenosis. Coronary Tree Dominance: Right LV Analysis LV function assessed as:Normal. The LV gram was performed in the SALDANA 30 position. LVEF: 60%. Conclusions: Multi-vessel Coronary Artery Disease. Normal LV systolic function. Recommendations CTS consult for CABG. Medical therapy as needed. Risk factor modification. Objective: Vitals: BP 129/82 Pulse 84 Temp 98.2 F (36.8 C) (Oral) Resp 16 Ht 5' 4 (1.626 m) Wt 281 lb 15.5 oz (127.9 kg) SpO2 93% BMI 48.40 kg/m General appearance: alert and cooperative with exam HEENT: Head: Normocephalic, no lesions, without obvious abnormality. Neck:no JVD, trachea midline, no adenopathy Lungs: Clear to auscultation, dim throughout. Heart: Regular rate and rhythm, s1/s2 auscultated, no murmurs, SR Abdomen: soft, non-tender, bowel sounds active,morbidly obese Extremities: no edema Neurologic: not done Assessment / Acute Cardiac Problems: NSTEMI. MVD as above HTN urgency OZZIE on CKD3 Morbid obesity DM2 Patient Active Problem List: Priapism, unspecified Cardiac tamponade Acute respiratory failure with hypoxia (HCC) Acute heart failure (HCC) Acute pulmonary edema (HCC) Pericardial effusion with cardiac tamponade Pericardial effusion Pleural effusion Rhinovirus infection Fever Sepsis due to Streptococcus species without acute organ dysfunction (HCC) Staphylococcus aureus pneumonia (HCC) Delirium Cerebral septic emboli (HCC) OZZIE (acute kidney injury) ([facility]) Hypercalcemia Cerebral embolism Cerebrovascular accident (CVA) (HCC) Septicemia (HCC) Dilated cardiomyopathy (HCC) Hypertension, essential Persistent proteinuria CKD (chronic kidney disease), stage III ([facility]) NSTEMI (non-ST elevated myocardial infarction) ([facility]) Hypertensive crisis Morbid obesity ([facility]) Anxiety Allergic rhinitis HHNC (hyperglycemic hyperosmolar nonketotic coma) ([facility]) Plan of Treatment: Stable. Cath as above. Plans for CABG on Monday noted by CTS. Support provided. Continue ASA, statin ECHO as above. Preserved LVEF without significant valvular disease Continue Coreg and Nifedipine. No TYRON/ARB d/t CKD Will follow [employer] [phone] Images from the original note were not included. [employer] Progress Note Date: 05/29/2022 Patient name: Elias Walker Date of admission: 05/23/2022 12:00 PM Date of : 1985 PCP: Jose Khanna APRN - RECREATION SUPERVISOR Reason for Admission: NSTEMI (non-ST elevated myocardial infarction) ([facility]) [I21.4] Subjective: Clinical Changes /Abnormalities: Patient was seen and examined in room without distress. Labs/vitals/tele reviewed. No acute CV issues or concerns. Remains SR. CTS plans noted Review of Systems Medications: Scheduled Meds: insulin glargine 45 Units SubCUTAneous BID NIFEdipine 90 mg Oral Daily sodium chloride flush 5-40 mL IntraVENous 2 times per day fenofibrate 160 mg Oral Daily pantoprazole 40 mg Oral QAM AC carvedilol 25 mg Oral BID FLUoxetine 10 mg Oral Daily atorvastatin 80 mg Oral Nightly aspirin 81 mg Oral Daily heparin (porcine) 4,000 Units IntraVENous Once insulin lispro 0-8 Units SubCUTAneous TID WC insulin lispro 0-4 Units SubCUTAneous Nightly Continuous Infusions: sodium chloride dextrose dextrose 5 % and 0.45 % NaCl heparin (PORCINE) Infusion 7.9 Units/kg/hr (05/29/22 0650) CBC: Recent Labs 05/28/22421 PLT 201 BMP: Recent Labs 05/27/22 0607 05/28/22 04205/29/22 0553 NA 137 136 137 K 4.3 4.4 4.9 CL 108* 107 107 CO2 21 19* 21 BUN 19 16 15 CREATININE 1.56* 1.41* 1.47* GLUCOSE 209* 163* 184* Hepatic:No results for input(s): AST, ALT, ALB, BILITOT, ALKPHOS in the last 72 hours. Troponin: No results for input(s): TROPHS in the last 72 hours. BNP: No results for input(s): BNP in the last 72 hours. Lipids: No results for input(s): CHOL, HDL in the last 72 hours. Invalid input(s): LDLCALCU INR: No results for input(s): INR in the last 72 hours. EKG: Date: 05/24/22 Reading: Normal sinus rhythm Nonspecific ST and T wave abnormality Abnormal ECG When compared with ECG of 23-MAY-2022 13:07, No significant change was found LAST ECHO: Date: 09/02/2021 Findings Summary: The study was performed by the Rn Acute Care, Cardiac Fellow, and the Acid Wash Operator in the Lens Coater without complications. Consent was obtained from the family. The patient tolerated the procedure well. Conscious sedation was used. No clots were visualized in the left atrial appendage. Estimated ejection fraction is 50% No valvular vegetations or thrombus were identified Echo 05/25/22 Summary Left ventricle is normal in size with increased septal wall thickness. Definity was utilized to better visualize endocardial boarders. Calculated EF via Lara's method (with Definity) is 68%. Evidence of diastolic dysfunction. Mitral valve sclerosis without stenosis. Mitral annular calcification is seen. Trivial tricuspid regurgitation. Estimated right ventricular systolic pressure is 36 mmHg. Cardiac Cath 05/27/22 Findings: LMCA: Diffuse irregularities 20-30%. LAD: Multiple stenosis. Lesion on Prox LAD: 90% stenosis. Lesion on Mid LAD: 80% stenosis. Lesion on Dist LAD: 80% stenosis. LCx: Single stenosis. Lesion on Prox CX: 70% stenosis. RCA: Multiple stenosis. Lesion on Mid RCA: 90% stenosis. Lesion on R PDA: Ostial.80% stenosis. Coronary Tree Dominance: Right LV Analysis LV function assessed as:Normal. The LV gram was performed in the SALDANA 30 position. LVEF: 60%. Conclusions: Multi-vessel Coronary Artery Disease. Normal LV systolic function. Recommendations CTS consult for CABG. Medical therapy as needed. Risk factor modification. Objective: Vitals: BP (!) 145/90 Pulse 85 Temp 97.7 F (36.5 C) (Oral) Resp 20 Ht 5' 4 (1.626 m) Wt 283 lb 11.7 oz (128.7 kg) SpO2 96% BMI 48.70 kg/m General appearance: alert and cooperative with exam HEENT: Head: Normocephalic, no lesions, without obvious abnormality. Neck:no JVD, trachea midline, no adenopathy Lungs: Clear to auscultation, dim throughout. Heart: Regular rate and rhythm, s1/s2 auscultated, no murmurs, SR Abdomen: soft, non-tender, bowel sounds active,morbidly obese Extremities: no edema Neurologic: not done Assessment / Acute Cardiac Problems: NSTEMI. MVD as above HTN urgency OZZIE on CKD3 Morbid obesity DM2 Patient Active Problem List: Priapism, unspecified Cardiac tamponade Acute respiratory failure with hypoxia (HCC) Acute heart failure (HCC) Acute pulmonary edema (HCC) Pericardial effusion with cardiac tamponade Pericardial effusion Pleural effusion Rhinovirus infection Fever Sepsis due to Streptococcus species without acute organ dysfunction (HCC) Staphylococcus aureus pneumonia (HCC) Delirium Cerebral septic emboli (HCC) OZZIE (acute kidney injury) (HCC) Hypercalcemia Cerebral embolism Cerebrovascular accident (CVA) (HCC) Septicemia (HCC) Dilated cardiomyopathy (HCC) Hypertension, essential Persistent proteinuria CKD (chronic kidney disease), stage III (HCC) NSTEMI (non-ST elevated myocardial infarction) (HCC) Hypertensive crisis Morbid obesity (HCC) Anxiety Allergic rhinitis HHNC (hyperglycemic hyperosmolar nonketotic coma) (HCC) Plan of Treatment: Stable. Cath as above. Plans for CABG on Monday noted by CTS. Support provided. Continue ASA, statin ECHO as above. Preserved LVEF without significant valvular disease BP with some improvement. Continue Coreg and will Nifedipine. No TYRON/ARB d/t CKD [employer] [facility]. [phone] Images from the original note were not included. [facility] Office: [phone] Sony Raymond DO, Brodie Campos DO, Skip Diggs DO, Rubén Swain DO, Lee Ann Saldaña MD, Love Cortez MD, Sultana Harley MD, Solange Mercer MD, Augusto Santizo MD, Lukas Angulo MD, Avelino Kent DO, Yanelis Grijalva MD, Fly Zapata DO, Jeaneth Begum MD, John Ricks MD, Madison Raymond DO, Nasra Schulte MD, Alessio Bhat MD, Eddie Rader DO, Tiara Ladd MD, Emma Arnold MD, Meghann Cooper MD, Michele Hardin MD, Jennifer Guo MD, Jerry Davis DO, Justin Gaines MD, Loco Wilks MD, Mayra Chicas CNP, Riri Serna CNP, Desire Harley CNP, Ariel Stewart CNP, Jennifer Magaña DNP, Patricia Harrington, JOSE, Pauline Charles CNP, Kelli Sarah CNP, Elizabeth Cummings CNP, Karlie Kenney CNP, Ben Cesar PA-C, Sherron Ngo, SU[employer]OR [employer], Nyasia Lea, JOSE, Ivonne Alicea, JOSE [facility] IN-PATIENT SERVICE [facility] Progress Note 05/29/2022 11:15 AM Name: Elias Walker Acct: [id number] Room: IP Day: 6 Admit Date: 05/23/2022 12:00 PM PCP: KENNETH Taylor CNP Code Status: Full Code Subjective: C/C: Chief Complaint Patient presents with Chest Pain No longer has chest pain, presented to [facility] with chest pain Polydipsia Interval History Status: not changed. Patient seen and examined, extensive discussion regarding diabetes and weight loss. No changes to medications and no plans change for CABG next week Brief History: 36 year old male with past medical history of resistant hypertension, diabetes, CKD, Hypertriglyceridemia, hyperlipidemia, depression presents with chest pain from outlying facility. Patient being followed by cardiology and nephrology. Echo 05/23/22: Summary Left ventricle is normal in size with increased septal wall thickness. Definity was utilized to better visualize endocardial boarders. Calculated EF via Lara's method (with Definity) is 68%. Evidence of diastolic dysfunction. Mitral valve sclerosis without stenosis. Mitral annular calcification is seen. Trivial tricuspid regurgitation. Estimated right ventricular systolic pressure is 36 mmHg. Catheterization 05/26/2022: Conclusions: Multi-vessel Coronary Artery Disease. Normal LV systolic function. Recommendations CTS consult for CABG. Medical therapy as needed. Risk factor modification. Review of Systems: Review of Systems Constitutional: Negative for activity change, fatigue and fever. HENT: Negative for ear pain and sneezing. Eyes: Negative for photophobia and redness. Respiratory: Negative for cough and shortness of breath. Cardiovascular: Negative for chest pain and leg swelling. Endocrine: Negative for polyphagia and polyuria. Genitourinary: Negative for dysuria and frequency. Musculoskeletal: Negative for arthralgias and myalgias. Skin: Negative for color change and rash. Neurological: Negative for light-headedness and numbness. Psychiatric/Behavioral: Negative for behavioral problems and confusion. Medications: Allergies: Allergies Allergen Reactions Food Watermelon, Honeydew, Cantelope Tomato Current Meds: Scheduled Meds: insulin glargine 45 Units SubCUTAneous BID NIFEdipine 90 mg Oral Daily sodium chloride flush 5-40 mL IntraVENous 2 times per day fenofibrate 160 mg Oral Daily pantoprazole 40 mg Oral QAM AC carvedilol 25 mg Oral BID FLUoxetine 10 mg Oral Daily atorvastatin 80 mg Oral Nightly aspirin 81 mg Oral Daily heparin (porcine) 4,000 Units IntraVENous Once insulin lispro 0-8 Units SubCUTAneous TID WC insulin lispro 0-4 Units SubCUTAneous Nightly Continuous Infusions: sodium chloride dextrose dextrose 5 % and 0.45 % NaCl heparin (PORCINE) Infusion 7.9 Units/kg/hr (05/29/22 0650) PRN Meds: calcium carbonate, fluticasone, sodium chloride flush, sodium chloride, glucose, dextrose bolus OR dextrose bolus, glucagon (rDNA), dextrose, potassium chloride OR potassium alternative oral replacement OR potassium chloride, magnesium sulfate, acetaminophen OR acetaminophen, nitroGLYCERIN, dextrose 5 % and 0.45 % NaCl, polyethylene glycol, heparin (porcine), heparin (porcine) Data: Past Medical History: has a past medical history of CKD (chronic kidney disease), stage III (HCC), Dilated cardiomyopathy (HCC), Hypertension, Persistent proteinuria, Priapism, unspecified, and Primary hypertension. Social History: reports that he quit smoking about 8 months ago. His smoking use included cigarettes. He has a 15.00 pack-year smoking history. He quit smokeless tobacco use about 2 years ago. His smokeless tobacco use included snuff. He reports current alcohol use. He reports that he does not use drugs. Family History: History reviewed. No pertinent family history. Vitals: BP (!) 145/90 Pulse 85 Temp 97.7 F (36.5 C) (Oral) Resp 20 Ht 5' 4 (1.626 m) Wt 283 lb 11.7 oz (128.7 kg) SpO2 96% BMI 48.70 kg/m Temp (24hrs), Av.8 F (36.6 C), Min:97.7 F (36.5 C), Max:98 F (36.7 C) Recent Labs 05/28/22 1147 05/28/22 1559 05/28/22 1957 05/29/22 0639 POCGLU 231* 254* 212* 172* I/O (24Hr): Intake/Output Summary (Last 24 hours) at 05/29/2022 1115 Last data filed at 05/29/2022 0845 Gross per 24 hour Intake 600 ml Output -- Net 600 ml Labs: Hematology: Recent Labs 05/28/22 0422 PLT 201 Chemistry: Recent Labs 05/27/22 0607 05/27/22 1222 05/28/22 0422 05/29/22 0553 NA 137 -- 136 137 K 4.3 -- 4.4 4.9 CL 108* -- 107 107 CO2 21 -- 19* 21 GLUCOSE 209* -- 163* 184* BUN 19 -- 16 15 CREATININE 1.56* -- 1.41* 1.47* ANIONGAP 8* -- 10 9 LABGLOM 58* -- >60 >60 CALCIUM 9.5 -- 10.0 10.6* CAION -- 1.40* -- -- Recent Labs 05/27/22195705/28/22 0653 05/28/22 1147 05/28/22 1559 05/28/22195605/29/22 0639 POCGLU 276* 163* 231* 254* 212* 172* ABG: Lab Results Component Value Date/Time POCPH 7.392 09/06/2021 04:41 AM POCPCO2 48.2 09/06/2021 04:41 AM POCPO2 98.0 09/06/2021 04:41 AM POCHCO3 29.3 09/06/2021 04:41 AM NBEA 2 09/03/2021 04:09 AM PBEA 4 09/06/2021 04:41 AM [id number] 98 09/06/2021 04:41 AM FIO2 40.0 09/06/2021 04:41 AM Lab Results Component Value Date/Time SPECIAL R HAND 10ML 09/08/2021 10:04 AM Lab Results Component Value Date/Time CULTURE NO GROWTH 5 DAYS 09/08/2021 10:04 AM Radiology: US RETROPERITONEAL COMPLETE Result Date: 05/24/2022 Normal renal length and echotexture without obstruction. Physical Examination: Physical Exam Constitutional: Appearance: He is obese. He is not ill-appearing. HENT: Head: Normocephalic and atraumatic. Right Ear: External ear normal. Left Ear: External ear normal. Nose: Nose normal. Mouth/Throat: Mouth: Mucous membranes are dry. Eyes: Pupils: Pupils are equal, round, and reactive to light. Cardiovascular: Rate and Rhythm: Normal rate and regular rhythm. Heart sounds: No murmur heard. Pulmonary: Comments: Decreased breath sounds bilaterally Abdominal: General: There is no distension. Palpations: Abdomen is soft. Tenderness: There is no abdominal tenderness. Musculoskeletal: Right lower leg: No edema. Left lower leg: No edema. Skin: General: Skin is warm and dry. Capillary Refill: Capillary refill takes less than 2 seconds. Neurological: General: No focal deficit present. Mental Status: He is alert and oriented to person, place, and time. Mental status is at baseline. Psychiatric: Mood and Affect: Mood normal. Behavior: Behavior normal. Assessment: Hospital Problems Last Modified POA * (Principal) CAD, multiple vessel 05/28/2022 Yes Hypertensive crisis 05/23/2022 Yes Acute kidney injury superimposed on CKD ([facility]) 05/28/2022 Yes NSTEMI (non-ST elevated myocardial infarction) ([facility]) 05/28/2022 Yes Morbid obesity ([facility]) 05/24/2022 Yes Anxiety 05/23/2022 Yes Allergic rhinitis 05/23/2022 Yes HHNC (hyperglycemic hyperosmolar nonketotic coma) ([facility]) 05/23/2022 Yes Primary hypertension 05/28/2022 Yes Overview Signed 09/28/2021 1:05 PM by Anna Serrano MD Blood pressures running in the 140-150 systolic range Plan: NSTEMI with multivessel coronary artery disease. Appreciate cardiology and cardiothoracic surgery recommendations. Continue heparin drip CKD with improving creatinine. Appreciate nephrology recommendations. Continue gentle IV hydration status post heart catheterization. Continue to monitor BUN and creatinine Diabetes hba1c 10.1 lantus, ISS, consult to diabetes education, increase Lantus Depression. Prozac 10 mg Increase Lantus, otherwise no changes to medications. Educated on diabetes and weight loss Avelino Kent DO 05/29/2022 11:15 AM SPIRITUAL CARE DEPARTMENT - [facility] [place] PROGRESS NOTE Shift date: 05/28/2022 Shift day: Monday Shift # 3 Room # Name: Elias Walker Mandaeism: Non-Hindu Place of zoroastrianism: Unknown Referral: Routine Visit Admit Date & Time: 05/23/2022 12:00 PM Assessment: Elias Walker is a 36 y.o. male in the hospital because of undergoing a Heart Catheterization. Per report, patient was found to need Open Heart Surgery. Patient was sitting up in hospital bed, when commutator v ring assembler visited. Patient's girlfriend, Nicolle, was also present in room at time of visit. Intervention: Parts Expediter visited per Spiritual Care Consult for Advance Directives. Cage Shift Manager introduced self and title as commutator v ring assembler. Parts Expediter learned from patient that he will be undergoing Open Heart Surgery on Monday. Parts Expediter learned from patient that he would like his girlfriend, Nicolle, named as his primary decision maker, as his mother lives in [place]. Parts Expediter assisted patient in completing Advance Directive documents and made copies for patient's girlfriend, as well as copies for patient's paper chart. Parts Expediter returned patient's completed documents to patient in room. Outcome: Patient thanked commutator v ring assembler for visit and care. Plan: Chaplains will remain available to offer spiritual and emotional support as needed. 05/28/222108 Encounter Summary Service Provided For: Patient and family together Referral/Consult From: Multi-disciplinary team (Spiritual Care Consult) Support System Significant other;Parent Last Encounter 05/28/22 Complexity of Encounter Low Begin Time 2108 End Time 2200 Total Time Calculated 52 min Spiritual/Emotional needs Type Spiritual Support Advance Care Planning Type ACP conversation;Completed AD/ACP document(s) Assessment/Intervention/Outcome Assessment Anxious;Fearful;Coping Intervention Active listening;Discussed illness injury and it s impact;Explored/Affirmed feelings, thoughts, concerns;Explored Coping Skills/Resources;Nurtured Hope;Sustaining Presence/Ministry of presence Outcome Comfort;Coping;Encouraged;Engaged in conversation;Receptive Plan and Referrals Plan/Referrals Continue to visit, (comment) (as needed) . Spiritual Care Department [facility] [phone] Images from the original note were not included. [facility] Office: [phone] Sony Raymond DO, Brodie Campos DO, Skip Diggs DO, uRbén Swain DO, Lee Ann Saldaña MD, Love Cortez MD, Sultana Harley MD, Solange Mercre MD, Augusto Santizo MD, Lukas Angulo MD, Avelino Kent DO, Yanelis Grijalva MD, Fly Zapata DO, Jeaneth Begum MD, John Ricks MD, Madison Raymond DO, Nasra Schulte MD, Alessio Bhat MD, Eddie Rader DO, Tiara Ladd MD, Emma Arnold MD, Meghann Cooper MD, Michele Hardin MD, Jennifer Guo MD, Jerry Davis DO, Justin Gaines MD, Loco Wilks MD, Mayra Chicas, JOSE, Riri Serna CNP, Desire Harley CNP, Ariel Stewart CNP, Jennifer Magaña DNP, Patricia Harrington CNP, Pauline Charles CNP, Kelli Sarah RECREATION SUPERVISOR, Elizabeth Cummings, RECREATION SUPERVISOR, Karlie Kenney RECREATION SUPERVISOR, Ben Cesar PA-C, Sherron Ngo, ALEJANDRO, Nyasia Lea CNP, Ivonne Alicea, RECREATION SUPERVISOR [facility] IN-PATIENT SERVICE [facility] Progress Note 05/28/2022 10:17 AM Name: Elias Walker Acct: [id number] Room: IP Day: 5 Admit Date: 05/23/2022 12:00 PM PCP: KENNETH Taylor CNP Code Status: Full Code Subjective: C/C: Chief Complaint Patient presents with Chest Pain No longer has chest pain, presented to [facility] with chest pain Polydipsia Interval History Status: not changed. Patient's plan for surgery next week. met with diabetic education Brief History: 36 year old male with past medical history of resistant hypertension, diabetes, CKD, Hypertriglyceridemia, hyperlipidemia, depression presents with chest pain from outlying facility. Patient being followed by cardiology and nephrology. Echo 05/23/22: Summary Left ventricle is normal in size with increased septal wall thickness. Definity was utilized to better visualize endocardial boarders. Calculated EF via Lara's method (with Definity) is 68%. Evidence of diastolic dysfunction. Mitral valve sclerosis without stenosis. Mitral annular calcification is seen. Trivial tricuspid regurgitation. Estimated right ventricular systolic pressure is 36 mmHg. Catheterization 05/26/2022: Conclusions: Multi-vessel Coronary Artery Disease. Normal LV systolic function. Recommendations CTS consult for CABG. Medical therapy as needed. Risk factor modification. Review of Systems: Review of Systems Constitutional: Negative for activity change, fatigue and fever. HENT: Negative for ear pain and sneezing. Eyes: Negative for photophobia and redness. Respiratory: Negative for cough and shortness of breath. Cardiovascular: Negative for chest pain and leg swelling. Endocrine: Negative for polyphagia and polyuria. Genitourinary: Negative for dysuria and frequency. Musculoskeletal: Negative for arthralgias and myalgias. Skin: Negative for color change and rash. Neurological: Negative for light-headedness and numbness. Psychiatric/Behavioral: Negative for behavioral problems and confusion. Medications: Allergies: Allergies Allergen Reactions Food Watermelon, Honeydew, Cantelope Tomato Current Meds: Scheduled Meds: NIFEdipine 90 mg Oral Daily insulin glargine 35 Units SubCUTAneous BID sodium chloride flush 5-40 mL IntraVENous 2 times per day fenofibrate 160 mg Oral Daily pantoprazole 40 mg Oral QAM AC carvedilol 25 mg Oral BID FLUoxetine 10 mg Oral Daily atorvastatin 80 mg Oral Nightly aspirin 81 mg Oral Daily heparin (porcine) 4,000 Units IntraVENous Once insulin lispro 0-8 Units SubCUTAneous TID WC insulin lispro 0-4 Units SubCUTAneous Nightly Continuous Infusions: sodium chloride dextrose dextrose 5 % and 0.45 % NaCl heparin (PORCINE) Infusion 7.9 Units/kg/hr (05/28/22 0430) PRN Meds: fluticasone, sodium chloride flush, sodium chloride, glucose, dextrose bolus OR dextrose bolus, glucagon (rDNA), dextrose, potassium chloride OR potassium alternative oral replacement OR potassium chloride, magnesium sulfate, acetaminophen OR acetaminophen, nitroGLYCERIN, dextrose 5 % and 0.45 % NaCl, polyethylene glycol, heparin (porcine), heparin (porcine) Data: Past Medical History: has a past medical history of CKD (chronic kidney disease), stage III (HCC), Dilated cardiomyopathy (HCC), Hypertension, Persistent proteinuria, Priapism, unspecified, and Primary hypertension. Social History: reports that he quit smoking about 8 months ago. His smoking use included cigarettes. He has a 15.00 pack-year smoking history. He quit smokeless tobacco use about 2 years ago. His smokeless tobacco use included snuff. He reports current alcohol use. He reports that he does not use drugs. Family History: History reviewed. No pertinent family history. Vitals: BP (!) 137/93 Pulse 83 Temp 97.7 F (36.5 C) (Oral) Resp 16 Ht 5' 4 (1.626 m) Wt 284 lb 9.8 oz (129.1 kg) SpO2 95% BMI 48.85 kg/m Temp (24hrs), Av.4 F (36.9 C), Min:97.7 F (36.5 C), Max:98.8 F (37.1 C) Recent Labs 05/27/22 1225 05/27/22 1609 05/27/22 1958 05/28/22 0653 POCGLU 208* 215* 276* 163* I/O (24Hr): Intake/Output Summary (Last 24 hours) at 05/28/2022 1017 Last data filed at 05/27/2022 2000 Gross per 24 hour Intake 360 ml Output -- Net 360 ml Labs: Hematology: Recent Labs 05/28/22 0422 PLT 201 Chemistry: Recent Labs 05/26/22 0655 05/27/22 0607 05/27/22 1222 05/28/22 0422 NA 141 137 -- 136 K 4.3 4.3 -- 4.4 CL 109* 108* -- 107 CO2 23 21 -- 19* GLUCOSE 212* 209* -- 163* BUN 18 19 -- 16 CREATININE 1.55* 1.56* -- 1.41* ANIONGAP 9 8* -- 10 LABGLOM 59* 58* -- >60 CALCIUM 9.4 9.5 -- 10.0 CAION -- -- 1.40* -- Recent Labs 05/26/22201405/27/22 0739 05/27/22 1225 05/27/22 1609 05/27/22195705/28/22 0653 POCGLU 264* 192* 208* 215* 276* 163* ABG: Lab Results Component Value Date/Time POCPH 7.392 09/06/2021 04:41 AM POCPCO2 48.2 09/06/2021 04:41 AM POCPO2 98.0 09/06/2021 04:41 AM POCHCO3 29.3 09/06/2021 04:41 AM NBEA 2 09/03/2021 04:09 AM PBEA 4 09/06/2021 04:41 AM LYGR1CSN 98 09/06/2021 04:41 AM FIO2 40.0 09/06/2021 04:41 AM Lab Results Component Value Date/Time SPECIAL R HAND 10ML 09/08/2021 10:04 AM Lab Results Component Value Date/Time CULTURE NO GROWTH 5 DAYS 09/08/2021 10:04 AM Radiology: US RETROPERITONEAL COMPLETE Result Date: 05/24/2022 Normal renal length and echotexture without obstruction. Physical Examination: Physical Exam Constitutional: Appearance: He is obese. He is not ill-appearing. HENT: Head: Normocephalic and atraumatic. Right Ear: External ear normal. Left Ear: External ear normal. Nose: Nose normal. Mouth/Throat: Mouth: Mucous membranes are dry. Eyes: Pupils: Pupils are equal, round, and reactive to light. Cardiovascular: Rate and Rhythm: Normal rate and regular rhythm. Heart sounds: No murmur heard. Pulmonary: Comments: Decreased breath sounds bilaterally Abdominal: General: There is no distension. Palpations: Abdomen is soft. Tenderness: There is no abdominal tenderness. Musculoskeletal: Right lower leg: No edema. Left lower leg: No edema. Skin: General: Skin is warm and dry. Capillary Refill: Capillary refill takes less than 2 seconds. Neurological: General: No focal deficit present. Mental Status: He is alert and oriented to person, place, and time. Mental status is at baseline. Psychiatric: Mood and Affect: Mood normal. Behavior: Behavior normal. Assessment: Hospital Problems Last Modified POA * (Principal) NSTEMI (non-ST elevated myocardial infarction) ([facility]) 05/23/2022 Yes Hypertensive crisis 05/23/2022 Yes OZZIE (acute kidney injury) ([facility]) 05/24/2022 Yes Morbid obesity ([facility]) 05/24/2022 Yes Anxiety 05/23/2022 Yes Allergic rhinitis 05/23/2022 Yes HHNC (hyperglycemic hyperosmolar nonketotic coma) ([facility]) 05/23/2022 Yes Hypertension, essential 05/24/2022 Yes Overview Signed 09/28/2021 1:05 PM by Anna Serrano MD Blood pressures running in the 140-150 systolic range Coronary artery disease of [place] artery of [place] heart with stable angina pectoris ([facility]) 05/27/2022 Yes Plan: NSTEMI with multivessel coronary artery disease. Appreciate cardiology and cardiothoracic surgery recommendations. Continue heparin drip CKD with improving creatinine. Appreciate nephrology recommendations. Continue gentle IV hydration status post heart catheterization. Continue to monitor BUN and creatinine Diabetes hba1c 10.1 lantus, ISS, consult to diabetes education, increase Lantus Depression. Prozac 10 mg Continue current therapy, CABG next week Avelino Kent DO 05/28/2022 10:17 AM Nephrology Progress Note SUBJECTIVE Patient was seen and examined sitting in recliner. No acute events noted overnight. Patient underwent cardiac cath 05/26/22 which show multivessel coronary artery disease. LV gram show EF 60%. CABG now scheduled for Monday. Blood pressures are in the 140s systolic, currently on coreg and nifedipine, nifedipine dose increased today per cardiology Urine output not charted for last 24hrs BMP reviewed sodium 136, potassium 4.4, chloride 107,bicarb 19, BUN 16, creatinine 1.41, Calcium 10.0 Currently on heparin gtt Echo showed LVEF 68% and evidence of diastolic dysfunction. Left ventricular is normal in size with increased septal wall thickness. US renal 05/23/22 shows normal renal length and echotexture without obstruction. Right kidney measuring 10.2 cm and left kidney measuring 10.3 cm. Cystic-appearing lesion 3.0 cm within the right kidney. HPI: Presented with left-sided chest pain radiating to the left shoulder while the patient was at rest. He came in to the hospital with the chest pain and reportedly not well controlled hypertension. He described it as a squeezing type pain. He went to [facility]. He has seen our group at [facility] as an outpatient.He was last seen there by, Dr. Serrano, in December of 2021. The patient had a previous acute kidney injury episode secondary to ischemic ATN in the setting of septic shock NSAIDs Bactrim and vancomycin and radiocontrast with creatinine peaking at 2.1. It has recently fluctuated in the 1.3-1.5 range. He also has associated proteinuria with UPC 1.3. Other history includes hypertension, episode of hyperkalemia in the past, primary hyperparathyroidism leading to hypercalcemia, morbid obesity and history of dilated cardiomyopathy with LVEF previously noted to be 30% along with mild to moderate mitral valve regurgitation. He also has a history previously of priapism resulting in decompression and a penis shunt. He does chronically vape every day. OBJECTIVE CURRENT TEMPERATURE: Temp: 97.7 F (36.5 C) MAXIMUM TEMPERATURE OVER 24HRS: Temp (24hrs), Av.4 F (36.9 C), Min:97.7 F (36.5 C), Max:98.8 F (37.1 C) CURRENT RESPIRATORY RATE: Resp: 16 CURRENT PULSE: Heart Rate: 83 CURRENT BLOOD PRESSURE: BP: (!) 137/93 24HR BLOOD PRESSURE RANGE: Systolic (24hrs), Av , Min:137 , Max:147 ; Diastolic (24hrs), Av, Min:89, Max:96 24HR INTAKE/OUTPUT: Intake/Output Summary (Last 24 hours) at 05/28/2022 0947 Last data filed at 05/27/20221999 Gross per 24 hour Intake 360 ml Output -- Net 360 ml PHYSICAL EXAM General appearance:Awake, alert, in no acute distress on room air Skin: warm and dry, no rash or erythema Eyes: conjunctivae normal and sclera anicteric ENT: :no thrush, moist mucous membranes, piercing inferior to the lower left Neck: no JVD, midline trachea and no excess or muscle use Pulmonary: good bilateral air entry and clear to auscultation bilaterally and symmetric without wheezes or rales or rhonchi Cardiovascular: regular rate and rhythm with positive S1 and S2, + systolic murmur and no rubs Abdomen: obese and soft nontender, bowel sounds present, no appreciable ascites Extremities: 1+ BLE edema CURRENT MEDICATIONS NIFEdipine (PROCARDIA XL) extended release tablet 90 mg, Daily insulin glargine (LANTUS) injection vial 35 Units, BID fluticasone (FLONASE) 50 MCG/ACT nasal spray 1 spray, BID PRN sodium chloride flush 0.9 % injection 5-40 mL, 2 times per day sodium chloride flush 0.9 % injection 5-40 mL, PRN 0.9 % sodium chloride infusion, PRN fenofibrate (TRIGLIDE) tablet 160 mg, Daily pantoprazole (PROTONIX) tablet 40 mg, QAM AC glucose chewable tablet 16 g, PRN dextrose bolus 10% 125 mL, PRN Or dextrose bolus 10% 250 mL, PRN glucagon (rDNA) injection 1 mg, PRN dextrose 10 % infusion, Continuous PRN carvedilol (COREG) tablet 25 mg, BID FLUoxetine (PROZAC) capsule 10 mg, Daily potassium chloride (KLOR-CON M) extended release tablet 40 mEq, PRN Or potassium bicarb-citric acid (EFFER-K) effervescent tablet 40 mEq, PRN Or potassium chloride 10 mEq/100 mL IVPB (Peripheral Line), PRN magnesium sulfate 1000 mg in dextrose 5% 100 mL IVPB, PRN acetaminophen (TYLENOL) tablet 650 mg, Q6H PRN Or acetaminophen (TYLENOL) suppository 650 mg, Q6H PRN atorvastatin (LIPITOR) tablet 80 mg, Nightly nitroGLYCERIN (NITROSTAT) SL tablet 0.4 mg, Q5 Min PRN dextrose 5 % and 0.45 % sodium chloride infusion, Continuous PRN polyethylene glycol (GLYCOLAX) packet 17 g, Daily PRN aspirin chewable tablet 81 mg, Daily heparin (porcine) injection 4,000 Units, Once heparin (porcine) injection 4,000 Units, PRN heparin (porcine) injection 2,000 Units, PRN heparin 25,000 units in dextrose 5 % 250 mL infusion (rate based), Continuous insulin lispro (HUMALOG) injection vial 0-8 Units, TID WC insulin lispro (HUMALOG) injection vial 0-4 Units, Nightly LABS CBC: Recent Labs 05/28/22 0422 PLT 201 BMP: Recent Labs 05/26/22 0655 05/27/22 0607 05/28/22421 NA 141 137 136 K 4.3 4.3 4.4 CL 109* 108* 107 CO2 23 21 19* BUN 18 19 16 CREATININE 1.55* 1.56* 1.41* GLUCOSE 212* 209* 163* CALCIUM 9.4 9.5 10.0 MAGNESIUM: No results for input(s): MG in the last 72 hours. MARIO: Lab Results Component Value Date MARIO NEGATIVE 08/30/2021 SPEP: Lab Results Component Value Date/Time PROT 7.7 10/06/2021 11:32 AM ALBCAL 3.1 09/02/2021 12:25 PM ALBPCT 53 09/02/2021 12:25 PM LABALPH 0.4 09/02/2021 12:25 PM LABALPH 0.8 09/02/2021 12:25 PM A1PCT 7 09/02/2021 12:25 PM A2PCT 13 09/02/2021 12:25 PM LABBETA 0.9 09/02/2021 12:25 PM BETAPCT 16 09/02/2021 12:25 PM GAMGLOB 0.7 09/02/2021 12:25 PM GGPCT 11 09/02/2021 12:25 PM PATH ELECTRONICALLY SIGNED. ZOE STERN M.D. 09/02/2021 12:25 PM PATH ELECTRONICALLY SIGNED. ZOE STERN M.D. 09/02/2021 12:25 PM UPEP: Lab Results Component Value Date/Time TPU 102 12/09/2021 02:11 PM HEPBSAG: Lab Results Component Value Date/Time HEPBSAG NONREACTIVE 09/02/2021 12:25 PM HEPCAB: Lab Results Component Value Date/Time HEPCAB NONREACTIVE 09/02/2021 12:25 PM C3: Lab Results Component Value Date C3 183 (H) 09/02/2021 C4: Lab Results Component Value Date C4 29 09/02/2021 MPO ANCA: Lab Results Component Value Date/Time MPO <0.3 08/30/2021 10:34 AM . PR3 ANCA: Lab Results Component Value Date/Time PR3 0.9 08/30/2021 10:34 AM URINE CREATININE: Lab Results Component Value Date/Time LABCREA 123.3 05/23/2022 02:21 AM URINE PROTEIN: Lab Results Component Value Date/Time TPU 102 12/09/2021 02:11 PM URINALYSIS: U/A: Lab Results Component Value Date/Time NITRU NEGATIVE 05/23/2022 02:21 AM COLORU Yellow 05/23/2022 02:21 AM PHUR 5.5 05/23/2022 02:21 AM WBCUA 2 TO 5 05/23/2022 02:21 AM RBCUA 0 TO 2 05/23/2022 02:21 AM SPECGRAV 1.025 05/23/2022 02:21 AM LEUKOCYTESUR NEGATIVE 05/23/2022 02:21 AM UROBILINOGEN Normal 05/23/2022 02:21 AM BILIRUBINUR NEGATIVE 05/23/2022 02:21 AM GLUCOSEU 3+ 05/23/2022 02:21 AM KETUA NEGATIVE 05/23/2022 02:21 AM RADIOLOGY Reviewed as available. ASSESSMENT Acute kidney injury likely secondary to uncontrolled hypertension and possibly exacerbated by the patient's chest pain and possible decrease in cardiac output with an underlying cardiomyopathy and mitral valve regurgitation based on previous echo; UPC 0.62; UA shows 2 to 5 hyaline casts; 3+ glucose, 2+ protein, negative for UTI. Now creatinine seems to be back at baseline. Underlying chronic kidney disease with baseline creatinine 1.3-[address] Serrano's notes. Likely secondary to hypertensive and diabetic nephropathy. Concern for NSTEMI, on heparin gtt, Primary hypertension with decrease control apparently on he presented to the outside hospital but good control currently Morbid obesity (BMI 48.06) History of proteinuria History of primary hyperparathyroidism and hypercalcemia Translocational hyponatremia secondary to hyperglycemia with corrected serum sodium within normal limits, resolved Dyslipidemia Type-2 DM; Newly diagnosed; HbA1c 10.1, Cardiopathy with EF of 35% as per 2D echo done in August 2021. IAN. Patient mentions that he will be getting a sleep study done outpatient. History of pericardial effusion status post pericardiocentesis in the past in August 2021. History of hypercalcemia now better. History of multiple punctate acute infarcts likely embolic. Cystic appearing lesion measuring 3.0 cm in the right kidney as per renal ultrasound done on 05/23/2022. Patient does have an outpatient neurology appointment with Dr. Victoria in in [place] on 06/21/2022 and will follow-up about his renal cysts there. Multivessel disease History of hypercalcemia, suspected primary hyperparathyroidism calcium well controlled PLAN No objection to proceed with coronary bypass graft next week 2. Fluid restriction 2 L a day 3. Continue nifedipine and carvedilol 4. Can add TYRON inhibitors if renal function remains stable 5. We will follow with you Please do not hesitate to call with questions. . Attending Physician Statement I have discussed the care of Elias Walker, including pertinent history and exam findings with the RECREATION SUPERVISOR I have reviewed the salguero elements of all parts of the encounter with the RECREATION SUPERVISOR. I have seen and examined the patient. I agree with the assessment and plan and status of the problem list as documented. Uriel Grier MD Nephrology Attending Physician [facility] 05/28/3022 Images from the original note were not included. [facility] [employer] Account Executive Progress Note Date: 05/28/2022 Patient name: Elias Walker Date of admission: 05/23/2022 12:00 PM Date of : 1985 PCP: KENNETH Taylor CNP Reason for Admission: NSTEMI (non-ST elevated myocardial infarction) ([facility]) [I21.4] Subjective: Clinical Changes /Abnormalities: Patient was seen and examined in room without distress. He denies chest pain and shortness of breath. Labs/vitals/tele reviewed. No acute CV issues or concerns. Remains SR. CTS plans noted Review of Systems Medications: Scheduled Meds: sodium chloride flush 5-40 mL IntraVENous 2 times per day fenofibrate 160 mg Oral Daily NIFEdipine 60 mg Oral Daily pantoprazole 40 mg Oral QAM AC insulin glargine 30 Units SubCUTAneous BID carvedilol 25 mg Oral BID FLUoxetine 10 mg Oral Daily atorvastatin 80 mg Oral Nightly aspirin 81 mg Oral Daily heparin (porcine) 4,000 Units IntraVENous Once insulin lispro 0-8 Units SubCUTAneous TID WC insulin lispro 0-4 Units SubCUTAneous Nightly Continuous Infusions: sodium chloride dextrose dextrose 5 % and 0.45 % NaCl heparin (PORCINE) Infusion 7.9 Units/kg/hr (05/28/22 0430) CBC: Recent Labs 05/28/22 0422 PLT 201 BMP: Recent Labs 05/26/22 0655 05/27/22 0607 05/28/22 0422 NA 141 137 136 K 4.3 4.3 4.4 CL 109* 108* 107 CO2 23 21 19* BUN 18 19 16 CREATININE 1.55* 1.56* 1.41* GLUCOSE 212* 209* 163* Hepatic:No results for input(s): AST, ALT, ALB, BILITOT, ALKPHOS in the last 72 hours. Troponin: No results for input(s): TROPHS in the last 72 hours. BNP: No results for input(s): BNP in the last 72 hours. Lipids: No results for input(s): CHOL, HDL in the last 72 hours. Invalid input(s): LDLCALCU INR: No results for input(s): INR in the last 72 hours. EKG: Date: 05/24/22 Reading: Normal sinus rhythm Nonspecific ST and T wave abnormality Abnormal ECG When compared with ECG of 23-MAY-2022 13:07, No significant change was found LAST ECHO: Date: 09/02/2021 Findings Summary: The study was performed by the Rn Acute Care, Cardiac Fellow, and the Acid Wash Operator in the Lens Coater without complications. Consent was obtained from the family. The patient tolerated the procedure well. Conscious sedation was used. No clots were visualized in the left atrial appendage. Estimated ejection fraction is 50% No valvular vegetations or thrombus were identified Echo 05/25/22 Summary Left ventricle is normal in size with increased septal wall thickness. Definity was utilized to better visualize endocardial boarders. Calculated EF via Lara's method (with Definity) is 68%. Evidence of diastolic dysfunction. Mitral valve sclerosis without stenosis. Mitral annular calcification is seen. Trivial tricuspid regurgitation. Estimated right ventricular systolic pressure is 36 mmHg. Cardiac Cath 05/27/22 Findings: LMCA: Diffuse irregularities 20-30%. LAD: Multiple stenosis. Lesion on Prox LAD: 90% stenosis. Lesion on Mid LAD: 80% stenosis. Lesion on Dist LAD: 80% stenosis. LCx: Single stenosis. Lesion on Prox CX: 70% stenosis. RCA: Multiple stenosis. Lesion on Mid RCA: 90% stenosis. Lesion on R PDA: Ostial.80% stenosis. Coronary Tree Dominance: Right LV Analysis LV function assessed as:Normal. The LV gram was performed in the SALDANA 30 position. LVEF: 60%. Conclusions: Multi-vessel Coronary Artery Disease. Normal LV systolic function. Recommendations CTS consult for CABG. Medical therapy as needed. Risk factor modification. Objective: Vitals: BP (!) 141/92 Pulse 83 Temp 98.8 F (37.1 C) (Oral) Resp 18 Ht 5' 4 (1.626 m) Wt 284 lb 9.8 oz (129.1 kg) SpO2 95% BMI 48.85 kg/m General appearance: alert and cooperative with exam HEENT: Head: Normocephalic, no lesions, without obvious abnormality. Neck:no JVD, trachea midline, no adenopathy Lungs: Clear to auscultation, dim throughout. Heart: Regular rate and rhythm, s1/s2 auscultated, no murmurs, SR Abdomen: soft, non-tender, bowel sounds active,morbidly obese Extremities: no edema Neurologic: not done Assessment / Acute Cardiac Problems: NSTEMI. MVD as above HTN urgency OZZIE on CKD3 Morbid obesity DM2 Patient Active Problem List: Priapism, unspecified Cardiac tamponade Acute respiratory failure with hypoxia (HCC) Acute heart failure (HCC) Acute pulmonary edema (HCC) Pericardial effusion with cardiac tamponade Pericardial effusion Pleural effusion Rhinovirus infection Fever Sepsis due to Streptococcus species without acute organ dysfunction (HCC) Staphylococcus aureus pneumonia (HCC) Delirium Cerebral septic emboli (HCC) OZZIE (acute kidney injury) (HCC) Hypercalcemia Cerebral embolism Cerebrovascular accident (CVA) (HCC) Septicemia (HCC) Dilated cardiomyopathy (HCC) Hypertension, essential Persistent proteinuria CKD (chronic kidney disease), stage III (HCC) NSTEMI (non-ST elevated myocardial infarction) ([facility]) Hypertensive crisis Morbid obesity (HCC) Anxiety Allergic rhinitis HHNC (hyperglycemic hyperosmolar nonketotic coma) ([facility]) Plan of Treatment: Stable. Cath as above. Plans for CABG on Monday noted by CTS. Support provided. Continue ASA, statin ECHO as above. Preserved LVEF without significant valvular disease BP remains elevated. Continue Coreg and will increase Nifedipine. No TYRON/ARB d/t CKD Will follow [employer] [facility]. [phone] Images from the original note were not included. [facility] Office: [phone] Sony Raymond DO, Brodie Campos DO, Skip Diggs DO, Rubén Swain DO, Lee Ann Saldaña MD, Love Cortez MD, Sultana Harley MD, Solange Mercer MD, Augusto Santizo MD, Lukas Angulo MD, Avelino Kent DO, Yanelis Grijalva MD, Fly Zapata DO, Jeaneth Begum MD, John Ricks MD, Madison Raymond DO, Nasra Schulte MD, Alessio Bhat MD, Eddie Rader DO, Tiara Ladd MD, Emma Arnold MD, Meghann Cooper MD, Michele Hardin MD, Jennifer Guo MD, Jerry Davis DO, Justin Gaines MD, Loco Wilks MD, Mayra Chicas, JOSE, Riri Serna CNP, Desire Harley CNP, Ariel Stewart CNP, Jennifer Magaña DNP, Patricia Harrington CNP, Pauline Charles CNP, Kelli Sarah CNP, Elizabeth Cummings CNP, Karlie Kenney CNP, Ben Cesar PA-C, Sherron Ngo, ALEJANDRO, Nyasia Lea, JOSE, Ivonne Alicea, RECREATION SUPERVISOR [facility] IN-PATIENT SERVICE [facility] Progress Note 05/27/2022 12:31 PM Name: Elias Walker Acct: [id number] Room: IP Day: 4 Admit Date: 05/23/2022 12:00 PM PCP: Jose Khanna APRN - JOSE Code Status: Full Code Subjective: C/C: Chief Complaint Patient presents with Chest Pain No longer has chest pain, presented to [facility] with chest pain Polydipsia Interval History Status: not changed. Patient awaiting thoracic surgery plan. Discussed his diabetes, discussed diabetic education Brief History: 36 year old male with past medical history of resistant hypertension, diabetes, CKD, Hypertriglyceridemia, hyperlipidemia, depression presents with chest pain from outlying facility. Patient being followed by cardiology and nephrology. Echo 05/23/22: Summary Left ventricle is normal in size with increased septal wall thickness. Definity was utilized to better visualize endocardial boarders. Calculated EF via Lara's method (with Definity) is 68%. Evidence of diastolic dysfunction. Mitral valve sclerosis without stenosis. Mitral annular calcification is seen. Trivial tricuspid regurgitation. Estimated right ventricular systolic pressure is 36 mmHg. Catheterization 05/26/2022: Conclusions: Multi-vessel Coronary Artery Disease. Normal LV systolic function. Recommendations CTS consult for CABG. Medical therapy as needed. Risk factor modification. Review of Systems: Review of Systems Constitutional: Negative for activity change, fatigue and fever. HENT: Negative for ear pain and sneezing. Eyes: Negative for photophobia and redness. Respiratory: Negative for cough and shortness of breath. Cardiovascular: Negative for chest pain and leg swelling. Endocrine: Negative for polyphagia and polyuria. Genitourinary: Negative for dysuria and frequency. Musculoskeletal: Negative for arthralgias and myalgias. Skin: Negative for color change and rash. Neurological: Negative for light-headedness and numbness. Psychiatric/Behavioral: Negative for behavioral problems and confusion. Medications: Allergies: Allergies Allergen Reactions Food Watermelon, Honeydew, Cantelope Tomato Current Meds: Scheduled Meds: sodium chloride flush 5-40 mL IntraVENous 2 times per day fenofibrate 160 mg Oral Daily NIFEdipine 60 mg Oral Daily pantoprazole 40 mg Oral QAM AC insulin glargine 30 Units SubCUTAneous BID carvedilol 25 mg Oral BID FLUoxetine 10 mg Oral Daily atorvastatin 80 mg Oral Nightly aspirin 81 mg Oral Daily heparin (porcine) 4,000 Units IntraVENous Once insulin lispro 0-8 Units SubCUTAneous TID WC insulin lispro 0-4 Units SubCUTAneous Nightly Continuous Infusions: sodium chloride dextrose dextrose 5 % and 0.45 % NaCl heparin (PORCINE) Infusion 5.9 Units/kg/hr (05/27/22 0828) PRN Meds: fluticasone, sodium chloride flush, sodium chloride, glucose, dextrose bolus OR dextrose bolus, glucagon (rDNA), dextrose, potassium chloride OR potassium alternative oral replacement OR potassium chloride, magnesium sulfate, acetaminophen OR acetaminophen, nitroGLYCERIN, dextrose 5 % and 0.45 % NaCl, polyethylene glycol, heparin (porcine), heparin (porcine) Data: Past Medical History: has a past medical history of CKD (chronic kidney disease), stage III (HCC), Dilated cardiomyopathy (HCC), Hypertension, Persistent proteinuria, Priapism, unspecified, and Primary hypertension. Social History: reports that he quit smoking about 8 months ago. His smoking use included cigarettes. He has a 15.00 pack-year smoking history. He quit smokeless tobacco use about 2 years ago. His smokeless tobacco use included snuff. He reports current alcohol use. He reports that he does not use drugs. Family History: History reviewed. No pertinent family history. Vitals: BP (!) 143/85 Pulse 87 Temp 97.8 F (36.6 C) (Oral) Resp 16 Ht 5' 4 (1.626 m) Wt 283 lb 2.9 oz (128.4 kg) SpO2 96% BMI 48.61 kg/m Temp (24hrs), Av.9 F (36.6 C), Min:97.4 F (36.3 C), Max:98.5 F (36.9 C) Recent Labs 05/26/22 1134 05/26/22 1659 05/26/22201405/27/22 0739 POCGLU 211* 165* 264* 192* I/O (24Hr): Intake/Output Summary (Last 24 hours) at 05/27/2022 1231 Last data filed at 05/26/20221999 Gross per 24 hour Intake 360 ml Output -- Net 360 ml Labs: Hematology: Recent Labs 05/25/22 0730 WBC 8.6 RBC 4.32 HGB 12.8* HCT 37.5* MCV 86.8 MCH 29.6 MCHC 34.1 RDW 13.2 PLT 189 MPV 11.1 Chemistry: Recent Labs 05/25/22 0730 05/26/22 0655 05/27/22 0607 05/27/22 1222 NA 134* 141 137 -- K 3.9 4.3 4.3 -- CL 102 109* 108* -- CO2 -- GLUCOSE 287* 212* 209* -- BUN 25* 18 19 -- CREATININE 1.70* 1.55* 1.56* -- ANIONGAP 9 9 8* -- LABGLOM 53* 59* 58* -- CALCIUM 9.6 9.4 9.5 -- CAION -- -- -- 1.40* Recent Labs 05/25/22 1947 05/26/22 0618 05/26/22 1134 05/26/22 1659 05/26/22201405/27/22 0739 POCGLU 324* 200* 211* 165* 264* 192* ABG: Lab Results Component Value Date/Time POCPH 7.392 09/06/2021 04:41 AM POCPCO2 48.2 09/06/2021 04:41 AM POCPO2 98.0 09/06/2021 04:41 AM POCHCO3 29.3 09/06/2021 04:41 AM NBEA 2 09/03/2021 04:09 AM PBEA 4 09/06/2021 04:41 AM TRTX0EUZ 98 09/06/2021 04:41 AM FIO2 40.0 09/06/2021 04:41 AM Lab Results Component Value Date/Time SPECIAL R HAND 10ML 09/08/2021 10:04 AM Lab Results Component Value Date/Time CULTURE NO GROWTH 5 DAYS 09/08/2021 10:04 AM Radiology: US RETROPERITONEAL COMPLETE Result Date: 05/24/2022 Normal renal length and echotexture without obstruction. Physical Examination: Physical Exam Constitutional: Appearance: He is obese. He is not ill-appearing. HENT: Head: Normocephalic and atraumatic. Right Ear: External ear normal. Left Ear: External ear normal. Nose: Nose normal. Mouth/Throat: Mouth: Mucous membranes are dry. Eyes: Pupils: Pupils are equal, round, and reactive to light. Cardiovascular: Rate and Rhythm: Normal rate and regular rhythm. Heart sounds: No murmur heard. Pulmonary: Comments: Decreased breath sounds bilaterally Abdominal: General: There is no distension. Palpations: Abdomen is soft. Tenderness: There is no abdominal tenderness. Musculoskeletal: Right lower leg: No edema. Left lower leg: No edema. Skin: General: Skin is warm and dry. Capillary Refill: Capillary refill takes less than 2 seconds. Neurological: General: No focal deficit present. Mental Status: He is alert and oriented to person, place, and time. Mental status is at baseline. Psychiatric: Mood and Affect: Mood normal. Behavior: Behavior normal. Assessment: Hospital Problems Last Modified POA * (Principal) NSTEMI (non-ST elevated myocardial infarction) ([facility]) 05/23/2022 Yes Hypertensive crisis 05/23/2022 Yes OZZIE (acute kidney injury) ([facility]) 05/24/2022 Yes Morbid obesity ([facility]) 05/24/2022 Yes Anxiety 05/23/2022 Yes Allergic rhinitis 05/23/2022 Yes HHNC (hyperglycemic hyperosmolar nonketotic coma) ([facility]) 05/23/2022 Yes Hypertension, essential 05/24/2022 Yes Overview Signed 09/28/2021 1:05 PM by Anna Serrano MD Blood pressures running in the 140-150 systolic range Coronary artery disease of [place] artery of [place] heart with stable angina pectoris ([facility]) 05/27/2022 Yes Plan: NSTEMI with multivessel coronary artery disease. Appreciate cardiology and cardiothoracic surgery recommendations. CKD with improving creatinine. Appreciate nephrology recommendations. Continue gentle IV hydration status post heart catheterization. Continue to monitor BUN and creatinine Diabetes hba1c 10.1 greg, ISS, consult to diabetes education Depression. Prozac 10 mg Continue current therapy, CABG next week Avelino Kent DO 05/27/2022 12:31 PM Images from the original note were not included. Diabetes education - follow up VISIT at bedside 05/27/22 Elias Walker, follow up education on Type 2 uncontrolled,new dx. He stated family history of diabetes and aware of how to use home BG meter, used on self and with other family in past. He has helped with adm of insulins in past also. He trained at [facility] and has ability to read food labels, measure and CHO food group awareness. Update to plan for care includes patient will need OHS and plan for OR is early next week. With inpatient care BG are at this point with lantus 30 units BID and correction scale: Following Survival Skills education topics were covered as appropriate to patient plan of for care: _x__ Type 2 Diabetes diagnosis as chronic and progressive 05/27/22 rs - follow up need to good glucose control - lower also CV risks and that diabetes is chronic and will need ongoing care _x__ Healthy eating - CHO food groups and need for CHO controlled diet. Elimination of sugary beverages, avoid skipping meal 05/26/22 rs - discussed CHO - how to count in choices and grams - CHO food groups and meal examples provided _x__ Role of physical activity - bouts of walking, swimming or low impact aerobics as recommended by care providers- aim for 30 minutes per day - limited at this time having CV work up _x__ Blood Glucose Self-Monitoring ( BGSM) /how to use a BG meter - Demonstrated use of a meter for education and practice of BGSM skill 05/27/22 rs - patient stated confident will be able to use a home meter - will need RX at time of discharge home __x_ Blood sugar targets Pre meal 80 - 130 and 2 hours post meal < 180 - 05/26/22 rs reinforced __x_ Hyperglycemia ( BG over 250) signs and symptoms and treatment 05/26/22 rs reinforced _x__ Hypoglycemia( BG < than 70) signs and symptoms and treatment Rule of 15 05/26/22 rs reinforced _x__ Keep BG log and take log and meter to follow up HCP appointments- stated Jose Khanna, DIRECTOR SOCIAL SERVICE 05/26/22 rs reinforced _x__ Medications - Insulin Lantus - Basal ( long acting) / Humalog- Bolus (pre meal) regime - insulin action times. 05/26/22 rs reinforced __x_ Importance of dosing rapid insulin from BG result at time of start of meal & administering within 15 minutes of eating meals ( meal time and or corrective ) __x_ Importance of taking long acting insulin at same time each day and not to skip doses ___ Demonstration of self-administering insulin via vial and syringe __x_ Demonstration of self-administering insulin via Pen and pen needle tips __x_ Reinforce safe needle / sharps disposal ___x Insulin injection site rotation _x__ Medications - Orals - unsure of home plan - briefly discussed orals as option ( metformin, sglt- 2 and glp1- ra) after CV work up and may also need isulin 05/26/22 rs reinforced Following Support materials were provided for patient to take home: _x__ Handout - What is diabetes? cornerstones4 care 2018 _x__ Handout - Eating Healthy for Life at every Meal / Plate method and grocery list from www.DiabetesHealth [employer]ine.org _x__ Handout - How to Check Your Blood Sugar from www.DiabetesHealth [employer]ine.org _x__ Handout - Be safe with [place] teaching sheet - / www.DiabeteseyeOS.org _x__ Handout - How to Use an Insulin Pen - handout with QR code - Health nielsen Current as of Nov 25 2020 _x__ Emergency Insert sheet for your Vehicle - ADA Diabetes Emergencies _x__ Diabetes ID card - ADA Low and High Blood Sugar and treatments _x__ [facility] Diabetes Education brochure/ contact card Patient needs reinforcement. understanding of survival skills education, - discussed current insulin plans lantus at 30 units BID and pre meal correction on scale, patient did self adm insulin on 05/26/22 with bedside RN RECOMMENDATIONS INPATIENT PLAN: _x__ Cartridge Feeder Consult this admission for education on CHO diet and diet plan for home - with cardiac and dm restrictions RECOMMENDATIONS FOR OUTPATIENT PLAN: Diabetes Self-Monitoring Supplies: _x__ Preferred / formulary blood glucose meter for BGSM at home use _x__ Strips and lancets for 4 frequency of home BGSM Diabetes Medications: May be candidate for SGLT-1 - Jardiance _x__ Insulin Pen Basal / long acting - dose per MD _x__ Insulin Pen Bolus pre meal set dose or correction scale - dose per MD Diabetes Education / HCP follow -up : _x_ Would recommend follow -up education at outpatient diabetes education at [facility]. An ordered is needed for this service and can be placed via EHR. Discharge Navigator --- Med Reconciliation -- New orders for discharge tab -- search diabetic ed - REF20 - [facility] - review and sign __x_ Follow -up with HCP / PCP within one week. Patient has established PCP KHANH ZAPATA RN [facility] - [facility] PROGRESS NOTE Shift date: 05/27/2022 Shift day: Monday Shift # 1 Room # Name: Elias Walker Mandaeism: Non-buddhist Referral: Routine Visit Admit Date & Time: 05/23/2022 12:00 PM Assessment: Elias Walker is a 36 y.o. male in the hospital because of chest pain and polydipsia. Upon entering the room field underwriter observes the patient sitting up in a recliner in a quiet room, holding cell phone. The patient explained the reason for their hospitalization and shared that the next step for them is to undergo a quadruple-bypass most likely mid-next week. The patient expressed feelings of worry and confusion, appearing tearful at times as they processed the impact of their diagnosis and treatment plan. The patient also expressed hopefulness and trust in medical staff. The patient expressed that they anticipate while waiting for their surgery potentially experiencing a need for more processing as things sink in for them. Intervention: Cage Shift Manager introduced self and title as commutator v ring assembler Cage Shift Manager offered space for the patient to express feelings, needs, and concerns and provided a ministry presence. The commutator v ring assembler provided emotional support and offer continual support, if needed by the patient. Outcome: The patient expressed gratitude and welcomes future visits. Plan: Chaplains will remain available to offer spiritual and emotional support as needed. 05/27/22 1039 Encounter Summary Service Provided For: Patient Referral/Consult From: [facility] Support System Significant other;Family members Last Encounter 05/27/22 Complexity of Encounter Low Begin Time 0943 End Time 1005 Total Time Calculated 22 min Assessment/Intervention/Outcome Assessment Anxious;Calm;Fearful;Hopeful;Tear ful Intervention Active listening;Confronted/Challenged;E xplored/Affirmed feelings, thoughts, concerns;Sustaining Presence/Ministry of presence Outcome Connection/Belonging;Engaged in conversation;Expressed feelings, needs, and concerns;Expressed Gratitude . Spiritual Care Department [facility] [phone] Nephrology Progress Note SUBJECTIVE Patient was seen and examined. Sitting in recliner. no acute events noted overnight. Denies any chest pain, shortness of breath, fever or chills, nausea and vomiting. Patient underwent cardiac cath yesterday which show multivessel coronary artery disease. LV gram show EF 60%. CT surgery consulted for possible CABG. Hemodynamically stable with 143/85. Currently on room air Urine output not charted for last 24hrs BMP reviewed sodium 137, potassium 4.3, vhloride 108, BUN 19, creatinine 1.56 Currently on heparin gtt Echo showed LVEF 68% and evidence of diastolic dysfunction. Left ventricular is normal in size with increased septal wall thickness. US renal 05/23/22 shows normal renal length and echotexture without obstruction. Right kidney measuring 10.2 cm and left kidney measuring 10.3 cm. Cystic-appearing lesion 3.0 cm within the right kidney. HPI: presents with left-sided chest pain radiating to the left shoulder while the patient was at rest. He came in to the hospital with the chest pain and reportedly not well controlled hypertension. He described it as a squeezing type pain. He went to [facility]. He has seen our group at [facility] as an outpatient.he was last seen there by my partner, Dr. Serrano, in December of 2021. The patient had a previous acute kidney injury episode secondary to ischemic ATN in the setting of septic shock NSAIDs Bactrim and vancomycin and radiocontrast with creatinine peaking at 2.1. It has recently fluctuated in the 1.3-1.5 range. He also has associated proteinuria with UPC 1.3. Other history includes hypertension, episode of hyperkalemia in the past, primary hyperparathyroidism leading to hypercalcemia, morbid obesity and history of dilated cardiomyopathy with LVEF previously noted to be 30% along with mild to moderate mitral valve regurgitation. He also has a history previously of priapism resulting in decompression and a penis shunt. He does chronically vape every day. OBJECTIVE CURRENT TEMPERATURE: Temp: 97.8 F (36.6 C) MAXIMUM TEMPERATURE OVER 24HRS: Temp (24hrs), Av.9 F (36.6 C), Min:97.4 F (36.3 C), Max:98.5 F (36.9 C) CURRENT RESPIRATORY RATE: Resp: 16 CURRENT PULSE: Heart Rate: 87 CURRENT BLOOD PRESSURE: BP: (!) 143/85 24HR BLOOD PRESSURE RANGE: Systolic (24hrs), Av , Min:106 , Max:162 ; Diastolic (24hrs), Av, Min:66, Max:110 24HR INTAKE/OUTPUT: Intake/Output Summary (Last 24 hours) at 05/27/2022 0950 Last data filed at 05/26/20221999 Gross per 24 hour Intake 360 ml Output -- Net 360 ml PHYSICAL EXAM General appearance:Awake, alert, in no acute distress on room air Skin: warm and dry, no rash or erythema Eyes: conjunctivae normal and sclera anicteric ENT: :no thrush, moist mucous membranes, piercing inferior to the lower left Neck: no JVD, midline trachea and no excess or muscle use Pulmonary: good bilateral air entry and clear to auscultation bilaterally and symmetric without wheezes or rales or rhonchi Cardiovascular: regular rate and rhythm with positive S1 and S2, positive systolic murmur and no rubs Abdomen: obese and soft nontender, bowel sounds present, no appreciable ascites Extremities: No edema CURRENT MEDICATIONS fluticasone (FLONASE) 50 MCG/ACT nasal spray 1 spray, BID PRN 0.45 % sodium chloride infusion, Continuous sodium chloride flush 0.9 % injection 5-40 mL, 2 times per day sodium chloride flush 0.9 % injection 5-40 mL, PRN 0.9 % sodium chloride infusion, PRN acetaminophen (TYLENOL) tablet 650 mg, Q4H PRN fenofibrate (TRIGLIDE) tablet 160 mg, Daily NIFEdipine (PROCARDIA XL) extended release tablet 60 mg, Daily pantoprazole (PROTONIX) tablet 40 mg, QAM AC insulin glargine (LANTUS) injection vial 30 Units, BID glucose chewable tablet 16 g, PRN dextrose bolus 10% 125 mL, PRN Or dextrose bolus 10% 250 mL, PRN glucagon (rDNA) injection 1 mg, PRN dextrose 10 % infusion, Continuous PRN carvedilol (COREG) tablet 25 mg, BID FLUoxetine (PROZAC) capsule 10 mg, Daily sodium chloride flush 0.9 % injection 5-40 mL, 2 times per day sodium chloride flush 0.9 % injection 10 mL, PRN 0.9 % sodium chloride infusion, PRN potassium chloride (KLOR-CON M) extended release tablet 40 mEq, PRN Or potassium bicarb-citric acid (EFFER-K) effervescent tablet 40 mEq, PRN Or potassium chloride 10 mEq/100 mL IVPB (Peripheral Line), PRN magnesium sulfate 1000 mg in dextrose 5% 100 mL IVPB, PRN acetaminophen (TYLENOL) tablet 650 mg, Q6H PRN Or acetaminophen (TYLENOL) suppository 650 mg, Q6H PRN atorvastatin (LIPITOR) tablet 80 mg, Nightly nitroGLYCERIN (NITROSTAT) SL tablet 0.4 mg, Q5 Min PRN dextrose 5 % and 0.45 % sodium chloride infusion, Continuous PRN polyethylene glycol (GLYCOLAX) packet 17 g, Daily PRN dextrose bolus 10% 125 mL, PRN Or dextrose bolus 10% 250 mL, PRN aspirin chewable tablet 81 mg, Daily heparin (porcine) injection 4,000 Units, Once heparin (porcine) injection 4,000 Units, PRN heparin (porcine) injection 2,000 Units, PRN heparin 25,000 units in dextrose 5 % 250 mL infusion (rate based), Continuous insulin lispro (HUMALOG) injection vial 0-8 Units, TID WC insulin lispro (HUMALOG) injection vial 0-4 Units, Nightly LABS CBC: Recent Labs 05/25/22 0730 WBC 8.6 RBC 4.32 HGB 12.8* HCT 37.5* MCV 86.8 MCH 29.6 MCHC 34.1 RDW 13.2 PLT 189 MPV 11.1 BMP: Recent Labs 05/25/22 0730 05/26/22 0655 05/27/22 0607 NA 134* 141 137 K 3.9 4.3 4.3 CL 102 109* 108* CO2 23 23 21 BUN 25* 18 19 CREATININE 1.70* 1.55* 1.56* GLUCOSE 287* 212* 209* CALCIUM 9.6 9.4 9.5 MAGNESIUM: No results for input(s): MG in the last 72 hours. MARIO: Lab Results Component Value Date MARIO NEGATIVE 08/30/2021 SPEP: Lab Results Component Value Date/Time PROT 7.7 10/06/2021 11:32 AM ALBCAL 3.1 09/02/2021 12:25 PM ALBPCT 53 09/02/2021 12:25 PM LABALPH 0.4 09/02/2021 12:25 PM LABALPH 0.8 09/02/2021 12:25 PM A1PCT 7 09/02/2021 12:25 PM A2PCT 13 09/02/2021 12:25 PM LABBETA 0.9 09/02/2021 12:25 PM BETAPCT 16 09/02/2021 12:25 PM GAMGLOB 0.7 09/02/2021 12:25 PM GGPCT 11 09/02/2021 12:25 PM PATH ELECTRONICALLY SIGNED. ZOE STERN M.D. 09/02/2021 12:25 PM PATH ELECTRONICALLY SIGNED. ZOE STERN M.D. 09/02/2021 12:25 PM UPEP: Lab Results Component Value Date/Time TPU 102 12/09/2021 02:11 PM HEPBSAG: Lab Results Component Value Date/Time HEPBSAG NONREACTIVE 09/02/2021 12:25 PM HEPCAB: Lab Results Component Value Date/Time HEPCAB NONREACTIVE 09/02/2021 12:25 PM C3: Lab Results Component Value Date C3 183 (H) 09/02/2021 C4: Lab Results Component Value Date C4 29 09/02/2021 MPO ANCA: Lab Results Component Value Date/Time MPO <0.3 08/30/2021 10:34 AM . PR3 ANCA: Lab Results Component Value Date/Time PR3 0.9 08/30/2021 10:34 AM URINE CREATININE: Lab Results Component Value Date/Time LABCREA 123.3 05/23/2022 02:21 AM URINE PROTEIN: Lab Results Component Value Date/Time TPU 102 12/09/2021 02:11 PM URINALYSIS: U/A: Lab Results Component Value Date/Time NITRU NEGATIVE 05/23/2022 02:21 AM COLORU Yellow 05/23/2022 02:21 AM PHUR 5.5 05/23/2022 02:21 AM WBCUA 2 TO 5 05/23/2022 02:21 AM RBCUA 0 TO 2 05/23/2022 02:21 AM SPECGRAV 1.025 05/23/2022 02:21 AM LEUKOCYTESUR NEGATIVE 05/23/2022 02:21 AM UROBILINOGEN Normal 05/23/2022 02:21 AM BILIRUBINUR NEGATIVE 05/23/2022 02:21 AM GLUCOSEU 3+ 05/23/2022 02:21 AM KETUA NEGATIVE 05/23/2022 02:21 AM RADIOLOGY Reviewed as available. ASSESSMENT Acute kidney injury likely secondary to uncontrolled hypertension and possibly exacerbated by the patient's chest pain and possible decrease in cardiac output with an underlying cardiomyopathy and mitral valve regurgitation based on previous echo; UPC 0.62; UA shows 2 to 5 hyaline casts; 3+ glucose, 2+ protein, negative for UTI. Now creatinine seems to be back at baseline. Underlying chronic kidney disease with baseline creatinine 1.3-1.[address] Serrano's notes. Likely secondary to hypertensive and diabetic nephropathy. Concern for NSTEMI, on heparin gtt, Primary hypertension with decrease control apparently on he presented to the outside hospital but good control currently Morbid obesity (BMI 48.06) History of proteinuria History of primary hyperparathyroidism and hypercalcemia Translocational hyponatremia secondary to hyperglycemia with corrected serum sodium within normal limits Dyslipidemia Type-2 DM; Newly diagnosed; HbA1c 10.1, Cardiopathy with EF of 35% as per 2D echo done in August 2021. IAN. Patient mentions that he will be getting a sleep study done outpatient. History of pericardial effusion status post pericardiocentesis in the past in August 2021. History of hypercalcemia now better. History of multiple punctate acute infarcts likely embolic. Cystic appearing lesion measuring 3.0 cm in the right kidney as per renal ultrasound done on 05/23/2022. Patient does have an outpatient neurology appointment with Dr. Victoria in in [place] on 06/21/2022 and will follow-up about his renal cysts there. Multivessel disease History of hypercalcemia, suspected primary hyperparathyroidism calcium well controlled PLAN Stop IV hypotonic fluids. Currently isotonic fluid running at 75 cc/h. No sign of volume overload. Renal function at baseline. CABG workup ongoing Continue to monitor strict I's and O's and renal function. Avoid nephrotoxin and renal contrast BMP in AM. Will follow. Please do not hesitate to call with questions. Sarwat Preciado MD Internal Medicine Resident PGY [address] [facility], [place] 05/27/2022, 9:54 AM This note is created with the assistance of a speech-recognition program. While intending to generate a document that actually reflects the content of the visit, no guarantees can be provided that every mistake has been identified and corrected by editing. Patient seen with resident. Known history of chronic kidney disease stage IIIb baseline creatinine 1.4-1.6 proteinuria 2 to 2.5 g has seen me in the office before at [facility]. He also has known history of morbid obesity type 2 diabetes and hypertension. Previously has had history of hypercalcemia from primary hyperparathyroidism calciums have been well controlled most recently. No intervention was done. He presented to the hospital with symptoms of chest pain found to have non-ST elevation TN. 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 There was a slight bump in creatinine on presentation likely related to acute TN, peaked at 2.0. Renal function now at baseline. Plan for open heart surgery next week. Plan 1. Discontinue IV fluid 2. No objection to proceed with coronary bypass graft next week 3. Increase oral intake 4. Fluid restriction 2 L a day 5. Continue nifedipine and carvedilol 6. Can add TYRON inhibitors if renal function remains stable 7. We will follow with you Attending Physician Statement I have discussed the care of Elias Walker, including pertinent history and exam findings with the resident/fellow. I have reviewed the salguero elements of all parts of the encounter with the resident/fellow. I have seen and examined the patient with the resident/fellow. I agree with the assessment and plan and status of the problem list as documented. . Images from the original note were not included. [facility] Office: [phone] Sony Raymond DO, Brodie Campos DO, Skip Diggs DO, Rubén Swain DO, Lee Ann Saldaña MD, Love Cortez MD, Sultana Harley MD, Solange Mercer MD, Augusto Santizo MD, Lukas Angulo MD, Avelino Kent DO, Yanelis Grijalva MD, Fly Zapata DO, Jeaneth Begum MD, John Ricks MD, Madison Raymond DO, Nasra Schulte MD, Alessio Bhat MD, Eddie Rader DO, Tiara Ladd MD, Emma Arnold MD, Meghann Cooper MD, Michele Hardin MD, Jennifer Guo MD, Jerry Davis DO, Justin Gaines MD, Loco Wilks MD, Mayra Chicas, JOSE, Riri Serna, RECREATION SUPERVISOR, Desire Harley, RECREATION SUPERVISOR, Ariel Stewart, RECREATION SUPERVISOR, Jennifer Magaña, [facility], Patricia Harrington, RECREATION SUPERVISOR, Pauline Charles, RECREATION SUPERVISOR, Kelli Sarah, RECREATION SUPERVISOR, Elizabeth Cummings, RECREATION SUPERVISOR, Karlie Kenney, RECREATION SUPERVISOR, Ben Cesar PA-C, Sherron Ngo, [facility], Nyasia Lea, RECREATION SUPERVISOR, Ivonne Alicea, [facility] IN-PATIENT SERVICE [facility] Progress Note 05/26/2022 3:50 PM Name: Elias Walker Acct: [id number] Room: IP Day: 3 Admit Date: 05/23/2022 12:00 PM PCP: KENNETH Taylor CNP Code Status: Full Code Subjective: C/C: Chief Complaint Patient presents with Chest Pain No longer has chest pain, presented to [facility] with chest pain Polydipsia Interval History Status: not changed. Patient david and examined. Status post cardiac catheterization. No chest pain, otherwise feeling well. Brief History: 36 year old male with past medical history of resistant hypertension, diabetes, CKD, Hypertriglyceridemia, hyperlipidemia, depression presents with chest pain from outlying facility. Patient being followed by cardiology and nephrology. Echo 05/23/22: Summary Left ventricle is normal in size with increased septal wall thickness. Definity was utilized to better visualize endocardial boarders. Calculated EF via Lara's method (with Definity) is 68%. Evidence of diastolic dysfunction. Mitral valve sclerosis without stenosis. Mitral annular calcification is seen. Trivial tricuspid regurgitation. Estimated right ventricular systolic pressure is 36 mmHg. Catheterization 05/26/2022: Conclusions: Multi-vessel Coronary Artery Disease. Normal LV systolic function. Recommendations CTS consult for CABG. Medical therapy as needed. Risk factor modification. Review of Systems: Review of Systems Constitutional: Negative for activity change, fatigue and fever. HENT: Negative for ear pain and sneezing. Eyes: Negative for photophobia and redness. Respiratory: Negative for cough and shortness of breath. Cardiovascular: Negative for chest pain and leg swelling. Endocrine: Negative for polyphagia and polyuria. Genitourinary: Negative for dysuria and frequency. Musculoskeletal: Negative for arthralgias and myalgias. Skin: Negative for color change and rash. Neurological: Negative for light-headedness and numbness. Psychiatric/Behavioral: Negative for behavioral problems and confusion. Medications: Allergies: Allergies Allergen Reactions Food Watermelon, Honeydew, Cantelope Tomato Current Meds: Scheduled Meds: sodium chloride flush 5-40 mL IntraVENous 2 times per day acetylcysteine 600 mg Oral Once acetylcysteine 600 mg Oral Once fenofibrate 160 mg Oral Daily NIFEdipine 60 mg Oral Daily pantoprazole 40 mg Oral QAM AC insulin glargine 30 Units SubCUTAneous BID carvedilol 25 mg Oral BID FLUoxetine 10 mg Oral Daily sodium chloride flush 5-40 mL IntraVENous 2 times per day atorvastatin 80 mg Oral Nightly aspirin 81 mg Oral Daily heparin (porcine) 4,000 Units IntraVENous Once insulin lispro 0-8 Units SubCUTAneous TID WC insulin lispro 0-4 Units SubCUTAneous Nightly Continuous Infusions: sodium chloride 75 mL/hr at 05/26/22 1525 sodium chloride dextrose sodium chloride dextrose 5 % and 0.45 % NaCl heparin (PORCINE) Infusion 11 Units/kg/hr (05/26/22 0838) PRN Meds: sodium chloride flush, sodium chloride, acetaminophen, glucose, dextrose bolus OR dextrose bolus, glucagon (rDNA), dextrose, sodium chloride flush, sodium chloride, potassium chloride OR potassium alternative oral replacement OR potassium chloride, magnesium sulfate, acetaminophen OR acetaminophen, nitroGLYCERIN, dextrose 5 % and 0.45 % NaCl, polyethylene glycol, dextrose bolus OR dextrose bolus, heparin (porcine), heparin (porcine) Data: Past Medical History: has a past medical history of CKD (chronic kidney disease), stage III (HCC), Dilated cardiomyopathy (HCC), Hypertension, Persistent proteinuria, Priapism, unspecified, and Primary hypertension. Social History: reports that he quit smoking about 8 months ago. His smoking use included cigarettes. He has a 15.00 pack-year smoking history. He quit smokeless tobacco use about 2 years ago. His smokeless tobacco use included snuff. He reports current alcohol use. He reports that he does not use drugs. Family History: History reviewed. No pertinent family history. Vitals: BP (!) 149/102 Pulse 82 Temp 97.8 F (36.6 C) (Oral) Resp 14 Ht 5' 4 (1.626 m) Wt 283 lb 2.9 oz (128.4 kg) SpO2 92% BMI 48.61 kg/m Temp (24hrs), Av.9 F (36.6 C), Min:97.7 F (36.5 C), Max:98 F (36.7 C) Recent Labs 05/25/22 1531 05/25/22 1947 05/26/22 0618 05/26/22 1134 POCGLU 328* 324* 200* 211* I/O (24Hr): Intake/Output Summary (Last 24 hours) at 05/26/2022 1550 Last data filed at 05/26/2022 0453 Gross per 24 hour Intake 4219.42 ml Output 1000 ml Net 3219.42 ml Labs: Hematology: Recent Labs 05/24/22 0725 05/25/22 0730 WBC 10.7 8.6 RBC 4.50 4.32 HGB 13.4 12.8* HCT 39.0* 37.5* MCV 86.7 86.8 MCH 29.8 29.6 MCHC 34.4 34.1 RDW 13.1 13.2 PLT 198 189 MPV 11.1 11.1 Chemistry: Recent Labs 05/23/22 1907 05/23/22 2105 05/24/22 0725 05/25/22 0730 05/26/22 0655 NA -- < > 132* 134* 141 K -- < > 4.1 3.9 4.3 CL -- < > 99 102 109* CO2 -- < > 23 GLUCOSE -- < > 391* 287* 212* BUN -- < > 31* 25* 18 CREATININE -- < > 2.04* 1.70* 1.55* MG -- -- 1.8 -- -- ANIONGAP -- < > 11 9 9 LABGLOM -- < > 42* 53* 59* CALCIUM -- < > 10.0 9.6 9.4 TROPHS 113* -- -- -- -- < > = values in this interval not displayed. Recent Labs 05/24/22 0725 05/24/22 1124 05/25/22 0716 05/25/22 1121 05/25/22 1531 05/25/22 1947 05/26/22 0618 05/26/22 1134 CHOL 330* -- -- -- -- -- -- -- HDL 40* -- -- -- -- -- -- -- LDLCHOLESTEROL -- -- -- -- -- -- -- CHOLHDLRATIO 8.3* -- -- -- -- -- -- -- TRIG 577* -- -- -- -- -- -- -- POCGLU 367* < > 253* 266* 328* 324* 200* 211* < > = values in this interval not displayed. ABG: Lab Results Component Value Date/Time POCPH 7.392 09/06/2021 04:41 AM POCPCO2 48.2 09/06/2021 04:41 AM POCPO2 98.0 09/06/2021 04:41 AM POCHCO3 29.3 09/06/2021 04:41 AM NBEA 2 09/03/2021 04:09 AM PBEA 4 09/06/2021 04:41 AM TCTF7OAM 98 09/06/2021 04:41 AM FIO2 40.0 09/06/2021 04:41 AM Lab Results Component Value Date/Time SPECIAL R HAND 10ML 09/08/2021 10:04 AM Lab Results Component Value Date/Time CULTURE NO GROWTH 5 DAYS 09/08/2021 10:04 AM Radiology: US RETROPERITONEAL COMPLETE Result Date: 05/24/2022 Normal renal length and echotexture without obstruction. Physical Examination: Physical Exam Constitutional: Appearance: He is obese. He is not ill-appearing. HENT: Head: Normocephalic and atraumatic. Right Ear: External ear normal. Left Ear: External ear normal. Nose: Nose normal. Mouth/Throat: Mouth: Mucous membranes are dry. Eyes: Pupils: Pupils are equal, round, and reactive to light. Cardiovascular: Rate and Rhythm: Normal rate and regular rhythm. Heart sounds: No murmur heard. Pulmonary: Comments: Decreased breath sounds bilaterally Abdominal: General: There is no distension. Palpations: Abdomen is soft. Tenderness: There is no abdominal tenderness. Musculoskeletal: Right lower leg: No edema. Left lower leg: No edema. Skin: General: Skin is warm and dry. Capillary Refill: Capillary refill takes less than 2 seconds. Neurological: General: No focal deficit present. Mental Status: He is alert and oriented to person, place, and time. Mental status is at baseline. Psychiatric: Mood and Affect: Mood normal. Behavior: Behavior normal. Assessment: Hospital Problems Last Modified POA * (Principal) NSTEMI (non-ST elevated myocardial infarction) ([facility]) 05/23/2022 Yes Hypertensive crisis 05/23/2022 Yes OZZIE (acute kidney injury) ([facility]) 05/24/2022 Yes Morbid obesity ([facility]) 05/24/2022 Yes Anxiety 05/23/2022 Yes Allergic rhinitis 05/23/2022 Yes HHNC (hyperglycemic hyperosmolar nonketotic coma) ([facility]) 05/23/2022 Yes Hypertension, essential 05/24/2022 Yes Overview Signed 09/28/2021 1:05 PM by Anna Serrano MD Blood pressures running in the 140-150 systolic range Plan: NSTEMI with multivessel coronary artery disease. Appreciate cardiology and cardiothoracic surgery recommendations. CKD with improving creatinine. Appreciate nephrology recommendations. Continue gentle IV hydration status post heart catheterization. Continue to monitor BUN and creatinine Diabetes hba1c 10.1 lantus, ISS, consult to diabetes education Depression. Prozac 10 mg Gi prophylaxis protonix Yanelis Grijalva MD 05/26/2022 3:50 PM Patient transported to room 2005 via Ray salinas RN assessed right radial Vasband, with 10 ml of air.no changes. REport called to Ray BAUM. Patient received post cath to PCC room 15. Assessment obtained. Post cath pathway initiated. Right radial site with Vascband intact. No hematoma noted. Restrictions reviewed with patient. Patient without complaints. Patient admitted, consent signed and questions answered. Patient ready for procedure. Call light to reach with side rails up 2 of 2. Right wrist, left and right groin hair clipped with field underwriter and BAUTISTA Xiao present. No family at bedside with patient. History and physical completed. Diabetes education - follow up VISIT at bedside 05/26/22 Elias Walker, follow up education on Type 2 uncontrolled,new dx. He stated family history of diabetes and aware of how to use home BG meter, used on self and with other family in past. He has helped with adm of insulins in past also. He trained at [facility] and has ability to read food labels, measure and CHO food group awareness. Lab Results Component Value Date LABA1C 10.1 (H) 05/23/2022 Lab Results Component Value Date EAG 243 05/23/2022 Following Survival Skills education topics were covered as appropriate to patient plan of for care: _x__ Type 2 Diabetes diagnosis as chronic and progressive _x__ Healthy eating - CHO food groups and need for CHO controlled diet. Elimination of sugary beverages, avoid skipping meal 05/26/22 rs - discussed CHO - how to count in choices and grams - CHO food groups and meal examples provided _x__ Role of physical activity - bouts of walking, swimming or low impact aerobics as recommended by care providers- aim for 30 minutes per day - limited at this time having CV work up _x__ Blood Glucose Self-Monitoring ( BGSM) /how to use a BG meter - Demonstrated use of a meter for education and practice of BGSM skill __x_ Blood sugar targets Pre meal 80 - 130 and 2 hours post meal < 180 - 05/26/22 rs reinforced __x_ Hyperglycemia ( BG over 250) signs and symptoms and treatment 05/26/22 rs reinforced _x__ Hypoglycemia( BG < than 70) signs and symptoms and treatment Rule of 15 05/26/22 rs reinforced _x__ Keep BG log and take log and meter to follow up HCP appointments- stated Jose Khanna, DIRECTOR SOCIAL SERVICE 05/26/22 rs reinforced _x__ Medications - Insulin Lantus - Basal ( long acting) / Humalog- Bolus (pre meal) regime - insulin action times. 05/26/22 rs reinforced __x_ Importance of dosing rapid insulin from BG result at time of start of meal & administering within 15 minutes of eating meals ( meal time and or corrective ) __x_ Importance of taking long acting insulin at same time each day and not to skip doses ___ Demonstration of self-administering insulin via vial and syringe __x_ Demonstration of self-administering insulin via Pen and pen needle tips __x_ Reinforce safe needle / sharps disposal ___x Insulin injection site rotation _x__ Medications - Orals - unsure of home plan - briefly discussed orals as option ( metformin, sglt- 2 and glp1- ra) after CV work up and may also need isulin 05/26/22 rs reinforced Following Support materials were provided for patient to take home: _x__ Handout - What is diabetes? cornerstones4 care 2018 _x__ Handout - Eating Healthy for Life at every Meal / Plate method and grocery list from www.[employer].org _x__ Handout - How to Check Your Blood Sugar from [email or web address].org _x__ Handout - Be safe with [place] teaching sheet - / [email or web address].org _x__ Handout - How to Use an Insulin Pen - handout with QR code - Health nielsen Current as of Nov 25 2020 _x__ Emergency Insert sheet for your Vehicle - ADA Diabetes Emergencies _x__ Diabetes ID card - ADA Low and High Blood Sugar and treatments _x__ [facility] Education brochure/ contact card Patient needs reinforcement. understanding of survival skills education, - discussed current insulin plans lantus at 30 units BID and pre meal correction on scale, patient did self adm insulin today with bedside RN RECOMMENDATIONS INPATIENT PLAN: _x__ Cartridge Feeder Consult this admission for education on CHO diet and diet plan for home RECOMMENDATIONS FOR OUTPATIENT PLAN: Diabetes Self-Monitoring Supplies: _x__ Preferred / formulary blood glucose meter for BGSM at home use _x__ Strips and lancets for 4 frequency of home BGSM Diabetes Medications: May be candidate for SGLT-1 - Jardiance _x__ Insulin Pen Basal / long acting - dose per MD _x__ Insulin Pen Bolus pre meal set dose or correction scale - dose per MD Diabetes Education / HCP follow -up : _x_ Would recommend follow -up education at outpatient diabetes education at [facility]. An ordered is needed for this service and can be placed via EHR. Discharge Navigator --- Med Reconciliation -- New orders for discharge tab -- search diabetic ed - REF20 - [facility] - review and sign __x_ Follow -up with HCP / PCP within one week. Patient has established PCP KHANH ZAPATA RN [facility] Nephrology Progress Note SUBJECTIVE Patient was seen at bedside and chart reviewed. No acute events overnight. Patient remained afebrile and hemodynamically stable. Cardiology planning for cardiac cath today. Patient was started on Mucomyst and IV fluids normal saline at 75 mill per hour yesterday in preparation for cardiac cath. Urine output: 1 L over 24 hours - IVF: NS @ 75 mL/hr -Patient is doing well today denies any nausea, chest pain or shortness of breath. Patient is newly diagnosed diabetic and A1c is 10.1. Echo was done yesterday that showed LVEF 68% and evidence of diastolic dysfunction. Left ventricular is normal in size with increased septal wall thickness. Labs reviewed: Sodium 141, potassium 4.3, bicarb 23, BUN 18, creatinine 1.55<<1.70; glucose 212, calcium 9.4, US renal 05/23/22 shows normal renal length and echotexture without obstruction. Right kidney measuring 10.2 cm and left kidney measuring 10.3 cm. Cystic-appearing lesion 3.0 cm within the right kidney. HPI: presents with left-sided chest pain radiating to the left shoulder while the patient was at rest. He came in to the hospital with the chest pain and reportedly not well controlled hypertension. He says the pain was at rest. He described it as a squeezing type pain. He went to [facility]. He has seen our group at [facility] as an outpatient.he was last seen there by my partner, Dr. Serrano, in December of 2021. The patient had a previous acute kidney injury episode secondary to ischemic ATN in the setting of septic shock NSAIDs Bactrim and vancomycin and radiocontrast with creatinine peaking at 2.1. It has recently fluctuated in the 1.3-1.5 range. He also has associated proteinuria with UPC 1.3. Other history includes hypertension, episode of hyperkalemia in the past, primary hyperparathyroidism leading to hypercalcemia, morbid obesity and history of dilated cardiomyopathy with LVEF previously noted to be 30% along with mild to moderate mitral valve regurgitation. He also has a history previously of priapism resulting in decompression and a penis shunt. He does chronically vape every day. OBJECTIVE CURRENT TEMPERATURE: Temp: 98 F (36.7 C) MAXIMUM TEMPERATURE OVER 24HRS: Temp (24hrs), Av.9 F (36.6 C), Min:97.6 F (36.4 C), Max:98.2 F (36.8 C) CURRENT RESPIRATORY RATE: Resp: 16 CURRENT PULSE: Heart Rate: 88 CURRENT BLOOD PRESSURE: BP: (!) 167/90 24HR BLOOD PRESSURE RANGE: Systolic (24hrs), Av , Min:129 , Max:168 ; Diastolic (24hrs), Av, Min:76, Max:108 24HR INTAKE/OUTPUT: Intake/Output Summary (Last 24 hours) at 05/26/2022 1043 Last data filed at 05/26/2022 0453 Gross per 24 hour Intake 4219.42 ml Output 1000 ml Net 3219.42 ml PHYSICAL EXAM General appearance:Awake, alert, in no acute distress on room air Skin: warm and dry, no rash or erythema Eyes: conjunctivae normal and sclera anicteric ENT: :no thrush, moist mucous membranes, piercing inferior to the lower left Neck: no JVD, midline trachea and no excess or muscle use Pulmonary: good bilateral air entry and clear to auscultation bilaterally and symmetric without wheezes or rales or rhonchi Cardiovascular: regular rate and rhythm with positive S1 and S2, positive systolic murmur and no rubs Abdomen: obese and soft nontender, bowel sounds present, no appreciable ascites Extremities: No edema CURRENT MEDICATIONS fenofibrate (TRIGLIDE) tablet 160 mg, Daily NIFEdipine (PROCARDIA XL) extended release tablet 60 mg, Daily acetylcysteine (MUCOMYST) 20 % solution 600 mg, BID 0.9 % sodium chloride infusion, Continuous pantoprazole (PROTONIX) tablet 40 mg, QAM AC insulin glargine (LANTUS) injection vial 30 Units, BID glucose chewable tablet 16 g, PRN dextrose bolus 10% 125 mL, PRN Or dextrose bolus 10% 250 mL, PRN glucagon (rDNA) injection 1 mg, PRN dextrose 10 % infusion, Continuous PRN carvedilol (COREG) tablet 25 mg, BID FLUoxetine (PROZAC) capsule 10 mg, Daily sodium chloride flush 0.9 % injection 5-40 mL, 2 times per day sodium chloride flush 0.9 % injection 10 mL, PRN 0.9 % sodium chloride infusion, PRN potassium chloride (KLOR-CON M) extended release tablet 40 mEq, PRN Or potassium bicarb-citric acid (EFFER-K) effervescent tablet 40 mEq, PRN Or potassium chloride 10 mEq/100 mL IVPB (Peripheral Line), PRN magnesium sulfate 1000 mg in dextrose 5% 100 mL IVPB, PRN acetaminophen (TYLENOL) tablet 650 mg, Q6H PRN Or acetaminophen (TYLENOL) suppository 650 mg, Q6H PRN atorvastatin (LIPITOR) tablet 80 mg, Nightly nitroGLYCERIN (NITROSTAT) SL tablet 0.4 mg, Q5 Min PRN dextrose 5 % and 0.45 % sodium chloride infusion, Continuous PRN polyethylene glycol (GLYCOLAX) packet 17 g, Daily PRN dextrose bolus 10% 125 mL, PRN Or dextrose bolus 10% 250 mL, PRN aspirin chewable tablet 81 mg, Daily heparin (porcine) injection 4,000 Units, Once heparin (porcine) injection 4,000 Units, PRN heparin (porcine) injection 2,000 Units, PRN heparin 25,000 units in dextrose 5 % 250 mL infusion (rate based), Continuous insulin lispro (HUMALOG) injection vial 0-8 Units, TID WC insulin lispro (HUMALOG) injection vial 0-4 Units, Nightly LABS CBC: Recent Labs 05/23/22 1222 05/24/22 0725 05/25/22 0730 WBC 10.9 10.7 8.6 RBC 5.20 4.50 4.32 HGB 15.5 13.4 12.8* HCT 43.4 39.0* 37.5* MCV 83.5 86.7 86.8 MCH 29.8 29.8 29.6 MCHC 35.7* 34.4 34.1 RDW 12.4 13.1 13.2 PLT 248 198 189 MPV 11.4 11.1 11.1 BMP: Recent Labs 05/24/22 0725 05/25/22 0730 05/26/22 0655 NA 132* 134* 141 K 4.1 3.9 4.3 CL 99 102 109* CO2 BUN 31* 25* 18 CREATININE 2.04* 1.70* 1.55* GLUCOSE 391* 287* 212* CALCIUM 10.0 9.6 9.4 MAGNESIUM: Recent Labs 05/24/22 0725 MG 1.8 MARIO: Lab Results Component Value Date MARIO NEGATIVE 08/30/2021 SPEP: Lab Results Component Value Date/Time PROT 7.7 10/06/2021 11:32 AM ALBCAL 3.1 09/02/2021 12:25 PM ALBPCT 53 09/02/2021 12:25 PM LABALPH 0.4 09/02/2021 12:25 PM LABALPH 0.8 09/02/2021 12:25 PM A1PCT 7 09/02/2021 12:25 PM A2PCT 13 09/02/2021 12:25 PM LABBETA 0.9 09/02/2021 12:25 PM BETAPCT 16 09/02/2021 12:25 PM GAMGLOB 0.7 09/02/2021 12:25 PM GGPCT 11 09/02/2021 12:25 PM PATH ELECTRONICALLY SIGNED. ZOE STERN M.D. 09/02/2021 12:25 PM PATH ELECTRONICALLY SIGNED. ZOE STERN M.D. 09/02/2021 12:25 PM UPEP: Lab Results Component Value Date/Time TPU 102 12/09/2021 02:11 PM HEPBSAG: Lab Results Component Value Date/Time HEPBSAG NONREACTIVE 09/02/2021 12:25 PM HEPCAB: Lab Results Component Value Date/Time HEPCAB NONREACTIVE 09/02/2021 12:25 PM C3: Lab Results Component Value Date C3 183 (H) 09/02/2021 C4: Lab Results Component Value Date C4 29 09/02/2021 MPO ANCA: Lab Results Component Value Date/Time MPO <0.3 08/30/2021 10:34 AM . PR3 ANCA: Lab Results Component Value Date/Time PR3 0.9 08/30/2021 10:34 AM URINE CREATININE: Lab Results Component Value Date/Time LABCREA 123.3 05/23/2022 02:21 AM URINE PROTEIN: Lab Results Component Value Date/Time TPU 102 12/09/2021 02:11 PM URINALYSIS: U/A: Lab Results Component Value Date/Time NITRU NEGATIVE 05/23/2022 02:21 AM COLORU Yellow 05/23/2022 02:21 AM PHUR 5.5 05/23/2022 02:21 AM WBCUA 2 TO 5 05/23/2022 02:21 AM RBCUA 0 TO 2 05/23/2022 02:21 AM SPECGRAV 1.025 05/23/2022 02:21 AM LEUKOCYTESUR NEGATIVE 05/23/2022 02:21 AM UROBILINOGEN Normal 05/23/2022 02:21 AM BILIRUBINUR NEGATIVE 05/23/2022 02:21 AM GLUCOSEU 3+ 05/23/2022 02:21 AM KETUA NEGATIVE 05/23/2022 02:21 AM RADIOLOGY Reviewed as available. ASSESSMENT Acute kidney injury likely secondary to uncontrolled hypertension and possibly exacerbated by the patient's chest pain and possible decrease in cardiac output with an underlying cardiomyopathy and mitral valve regurgitation based on previous echo; UPC 0.62; UA shows 2 to 5 hyaline casts; 3+ glucose, 2+ protein, negative for UTI. Now creatinine seems to be back at baseline. Underlying chronic kidney disease with baseline creatinine 1.3-1.[address] Serrano's notes. Likely secondary to hypertensive and diabetic nephropathy. Concern for NSTEMI, on heparin gtt, Primary hypertension with decrease control apparently on he presented to the outside hospital but good control currently Morbid obesity (BMI 48.06) Chest pain syndrome with elevated troponin History of proteinuria History of primary hyperparathyroidism and hypercalcemia Translocational hyponatremia secondary to hyperglycemia with corrected serum sodium within normal limits Dyslipidemia Type-2 DM; Newly diagnosed; HbA1c 10.1, Cardiopathy with EF of 35% as per 2D echo done in August 2021. IAN. Patient mentions that he will be getting a sleep study done outpatient. History of pericardial effusion status post pericardiocentesis in the past in August 2021. History of hypercalcemia now better. History of multiple punctate acute infarcts likely embolic. Cystic appearing lesion measuring 3.0 cm in the right kidney as per renal ultrasound done on 05/23/2022. Patient does have an outpatient neurology appointment with Dr. Victoria in in [place] on 06/21/2022 and will follow-up about his renal cysts there. PLAN Change IV fluids to half normal saline at 75 cc an hour. Continue mucomyst as well. Continue to monitor strict I's and O's and renal function. Patient is cleared for cardiac catheter today. Plan for cardiac cath this afternoon per cardiology. This was discussed with the patient and contrast related renal risks all the way up to the possibility of requiring dialysis was also explained. Patient verbalized understanding and is okay with getting the procedure done as required. BMP in AM. Will follow. Please do not hesitate to call with questions. Terrance Echeverria MD, MPH, PGY-2 Internal Medicine Resident [facility] [place], [place], [place] Attending Physician Statement I have discussed the care of this patient, including pertinent history and exam findings, with the Resident/RECREATION SUPERVISOR. I have reviewed and edited the salguero elements of all parts of the encounter with the Resident/RECREATION SUPERVISOR. I agree with the assessment, plan and orders as documented by the Resident/RECREATION SUPERVISOR. Talib Saldaña MD [facility] This note is created with the assistance of a speech-recognition program. While intending to generate a document that actually reflects the content of the visit, no guarantees can be provided that every mistake has been identified and corrected by editing. Cage Shift Manager speaks with JOSE Chapman for cardiology. Patient is cleared for cardiac cath and will be going down between 1230/1300. Cage Shift Manager informs patient. Images from the original note were not included. [employer] Sales Account Executive Progress Note Date: 05/26/2022 Patient name: lEias Walker Date of admission: 05/23/2022 12:00 PM Date of : 1985 PCP: KENNETH Taylor CNP Reason for Admission: NSTEMI (non-ST elevated myocardial infarction) ([facility]) [I21.4] Subjective: Clinical Changes /Abnormalities: Patient was seen and examined in room lying in bed without distress. He denies chest pain and shortness of breath. Labs/vitals/tele reviewed. No acute CV issues or concerns. Remains SR. Creat today 1.55 Review of Systems Medications: Scheduled Meds: fenofibrate 160 mg Oral Daily NIFEdipine 60 mg Oral Daily acetylcysteine 600 mg Oral BID pantoprazole 40 mg Oral QAM AC insulin glargine 30 Units SubCUTAneous BID carvedilol 25 mg Oral BID FLUoxetine 10 mg Oral Daily sodium chloride flush 5-40 mL IntraVENous 2 times per day atorvastatin 80 mg Oral Nightly aspirin 81 mg Oral Daily heparin (porcine) 4,000 Units IntraVENous Once insulin lispro 0-8 Units SubCUTAneous TID WC insulin lispro 0-4 Units SubCUTAneous Nightly Continuous Infusions: sodium chloride 75 mL/hr at 05/26/22 0453 dextrose sodium chloride dextrose 5 % and 0.45 % NaCl heparin (PORCINE) Infusion 11 Units/kg/hr (05/26/22 0838) CBC: Recent Labs 05/23/22 1222 05/24/22 0725 05/25/22 0730 WBC 10.9 10.7 8.6 HGB 15.5 13.4 12.8* PLT 248 198 189 BMP: Recent Labs 05/24/22 0725 05/25/22 0730 05/26/22 0655 NA 132* 134* 141 K 4.1 3.9 4.3 CL 99 102 109* CO2 BUN 31* 25* 18 CREATININE 2.04* 1.70* 1.55* GLUCOSE 391* 287* 212* Hepatic:No results for input(s): AST, ALT, ALB, BILITOT, ALKPHOS in the last 72 hours. Troponin: Recent Labs 05/23/22 1222 05/23/22 1907 TROPHS 138* 113* BNP: No results for input(s): BNP in the last 72 hours. Lipids: Recent Labs 05/24/22 0725 CHOL 330* HDL 40* INR: No results for input(s): INR in the last 72 hours. EKG: Date: 05/24/22 Reading: Normal sinus rhythm Nonspecific ST and T wave abnormality Abnormal ECG When compared with ECG of 23-MAY-2022 13:07, No significant change was found LAST ECHO: Date: 09/02/2021 Findings Summary: The study was performed by the Rn Acute Care, Cardiac Fellow, and the Acid Wash Operator in the Lens [employer] without complications. Consent was obtained from the family. The patient tolerated the procedure well. Conscious sedation was used. No clots were visualized in the left atrial appendage. Estimated ejection fraction is 50% No valvular vegetations or thrombus were identified Echo 05/25/22 Summary Left ventricle is normal in size with increased septal wall thickness. Definity was utilized to better visualize endocardial boarders. Calculated EF via Lara's method (with Definity) is 68%. Evidence of diastolic dysfunction. Mitral valve sclerosis without stenosis. Mitral annular calcification is seen. Trivial tricuspid regurgitation. Estimated right ventricular systolic pressure is 36 mmHg. Objective: Vitals: BP (!) 167/90 Pulse 88 Temp 98 F (36.7 C) (Oral) Resp 16 Ht 5' 4 (1.626 m) Wt 283 lb 2.9 oz (128.4 kg) SpO2 94% BMI 48.61 kg/m General appearance: alert and cooperative with exam HEENT: Head: Normocephalic, no lesions, without obvious abnormality. Neck:no JVD, trachea midline, no adenopathy Lungs: Clear to auscultation, dim throughout. Heart: Regular rate and rhythm, s1/s2 auscultated, no murmurs, SR Abdomen: soft, non-tender, bowel sounds active,morbidly obese Extremities: no edema Neurologic: not done Assessment / Acute Cardiac Problems: NSTEMI. HTN urgency OZZIE on CKD3 Morbid obesity DM2 Patient Active Problem List: Priapism, unspecified Cardiac tamponade Acute respiratory failure with hypoxia (HCC) Acute heart failure (HCC) Acute pulmonary edema (HCC) Pericardial effusion with cardiac tamponade Pericardial effusion Pleural effusion Rhinovirus infection Fever Sepsis due to Streptococcus species without acute organ dysfunction (HCC) Staphylococcus aureus pneumonia (HCC) Delirium Cerebral septic emboli (HCC) OZZIE (acute kidney injury) (HCC) Hypercalcemia Cerebral embolism Cerebrovascular accident (CVA) (HCC) Septicemia (HCC) Dilated cardiomyopathy (HCC) Hypertension, essential Persistent proteinuria CKD (chronic kidney disease), stage III (HCC) NSTEMI (non-ST elevated myocardial infarction) (HCC) Hypertensive crisis Morbid obesity (HCC) Anxiety Allergic rhinitis HHNC (hyperglycemic hyperosmolar nonketotic coma) (HCC) Plan of Treatment: Stable. Troponin elevated, trending down, with baseline in the 40s. Pain free presently and on IV Heparin gtt Recommend cardiac cath per Dr. Esquivel once renal function improved. Creat today 1.55. Will verify with nephro and proceed with cath if cleared. Continue ASA, statin ECHO as above. Preserved LVEF without significant valvular disease BP remains elevated. Continue Coreg and increase Nifedipine if recheck BP still elevated as dose increased yesterday and just given this AM. Consider Hydralazine if remains elevated [employer] Account Executive [facility]. [phone] Cage Shift Manager pulls patient's insulin into syringe and has patient self administer under supervision. Patient does extremely well. Dr. Grijalva notified that patient's BP elevated and outside of parameters prior to am medications given. Medications given, will recheck BP and continue to monitor. aware of elevated BP. New orders received to increase procardia with a 1 x 30 mg dose. Images from the original note were not included. [facility] Office: [phone] Sony Raymond DO, Brodie Campos DO, Skip Diggs DO, Rubén Swain DO, Lee Ann Saldaña MD, Love Cortez MD, Sultana Harley MD, Solange Mercer MD, Augusto Santizo MD, Lukas Angulo MD, Avelino Kent DO, Yanelis Grijalva MD, Fly Zapata DO, Jeaneth Begum MD, John Ricks MD, Madison Raymond DO, Nasra Schulte MD, Alessio Bhat MD, Eddie Rader DO, Tiara Ladd MD, Emma Arnold MD, Meghann Cooper MD, Michele Hardin MD, Jennifer Guo MD, Jerry Davis DO, Justin Gaines MD, Loco Wilks MD, Mayra Chicas CNP, Riri Serna CNP, Desire Harley CNP, Ariel Stewart, RECREATION SUPERVISOR, Jennifer Magaña, UMESH, Patricia Harrington, RECREATION SUPERVISOR, Pauline Charles, RECREATION SUPERVISOR, Kelli Sarah RECREATION SUPERVISOR, Elizabeth Cummings, RECREATION SUPERVISOR, Karlie Kenney RECREATION SUPERVISOR, WILL Carter-C, Sherron Ngo, SUPERVISOR [employer], Nyasia Lea, RECREATION SUPERVISOR, Ivonne Alicea, RECREATION SUPERVISOR [facility] IN-PATIENT SERVICE [facility] Progress Note 05/25/2022 2:35 PM Name: Elias Walker Acct: [id number] Room: 0407/0407-01 Day: 2 Admit Date: 05/23/2022 12:00 PM PCP: KENNETH Taylor CNP Code Status: Full Code Subjective: C/C: Chief Complaint Patient presents with Chest Pain No longer has chest pain, presented to [facility] with chest pain Polydipsia Interval History Status: not changed. Patient david and examined. Feeling ok. No acute issues. Slight anxiety being stuck in the hospital. Brief History: 36 year old male with past medical history of resistant hypertension, diabetes, CKD, Hypertriglyceridemia, hyperlipidemia, depression presents with chest pain from outlying facility. Patient being followed by cardiology and nephrology. Echo 05/23/22: Summary Left ventricle is normal in size with increased septal wall thickness. Definity was utilized to better visualize endocardial boarders. Calculated EF via Lara's method (with Definity) is 68%. Evidence of diastolic dysfunction. Mitral valve sclerosis without stenosis. Mitral annular calcification is seen. Trivial tricuspid regurgitation. Estimated right ventricular systolic pressure is 36 mmHg. Review of Systems: Review of Systems Constitutional: Negative for activity change, fatigue and fever. HENT: Negative for ear pain and sneezing. Eyes: Negative for photophobia and redness. Respiratory: Negative for cough and shortness of breath. Cardiovascular: Negative for chest pain and leg swelling. Endocrine: Negative for polyphagia and polyuria. Genitourinary: Negative for dysuria and frequency. Musculoskeletal: Negative for arthralgias and myalgias. Skin: Negative for color change and rash. Neurological: Negative for light-headedness and numbness. Psychiatric/Behavioral: Negative for behavioral problems and confusion. Medications: Allergies: Allergies Allergen Reactions Food Watermelon, Honeydew, Cantelope Tomato Current Meds: Scheduled Meds: fenofibrate 160 mg Oral Daily [START ON 05/26/2022] NIFEdipine 60 mg Oral Daily [START ON 05/26/2022] acetylcysteine 600 mg Oral BID insulin glargine 30 Units SubCUTAneous BID carvedilol 25 mg Oral BID FLUoxetine 10 mg Oral Daily [Held by provider] lisinopril 5 mg Oral Daily sodium chloride flush 5-40 mL IntraVENous 2 times per day atorvastatin 80 mg Oral Nightly aspirin 81 mg Oral Daily heparin (porcine) 4,000 Units IntraVENous Once insulin lispro 0-8 Units SubCUTAneous TID WC insulin lispro 0-4 Units SubCUTAneous Nightly Continuous Infusions: sodium chloride 75 mL/hr at 05/25/22 1425 dextrose sodium chloride dextrose 5 % and 0.45 % NaCl heparin (PORCINE) Infusion 11 Units/kg/hr (05/25/22 0919) PRN Meds: glucose, dextrose bolus OR dextrose bolus, glucagon (rDNA), dextrose, sodium chloride flush, sodium chloride, potassium chloride OR potassium alternative oral replacement OR potassium chloride, magnesium sulfate, acetaminophen OR acetaminophen, nitroGLYCERIN, dextrose 5 % and 0.45 % NaCl, polyethylene glycol, dextrose bolus OR dextrose bolus, heparin (porcine), heparin (porcine) Data: Past Medical History: has a past medical history of CKD (chronic kidney disease), stage III (HCC), Dilated cardiomyopathy (HCC), Hypertension, Persistent proteinuria, Priapism, unspecified, and Primary hypertension. Social History: reports that he quit smoking about 8 months ago. His smoking use included cigarettes. He has a 15.00 pack-year smoking history. He quit smokeless tobacco use about 2 years ago. His smokeless tobacco use included snuff. He reports current alcohol use. He reports that he does not use drugs. Family History: History reviewed. No pertinent family history. Vitals: BP (!) 153/94 Pulse 89 Temp 98.2 F (36.8 C) (Oral) Resp 18 Ht 5' 4 (1.626 m) Wt 282 lb 3 oz (128 kg) SpO2 94% BMI 48.44 kg/m Temp (24hrs), Av.9 F (36.6 C), Min:97.7 F (36.5 C), Max:98.2 F (36.8 C) Recent Labs 05/24/22 1550 05/24/22 1957 05/25/22 0716 05/25/22 1121 POCGLU 364* 293* 253* 266* I/O (24Hr): Intake/Output Summary (Last 24 hours) at 05/25/2022 1435 Last data filed at 05/24/2022 1947 Gross per 24 hour Intake 10 ml Output 1200 ml Net -1190 ml Labs: Hematology: Recent Labs 05/23/22 1222 05/24/22 0725 05/25/22 0730 WBC 10.9 10.7 8.6 RBC 5.20 4.50 4.32 HGB 15.5 13.4 12.8* HCT 43.4 39.0* 37.5* MCV 83.5 86.7 86.8 MCH 29.8 29.8 29.6 MCHC 35.7* 34.4 34.1 RDW 12.4 13.1 13.2 PLT 248 198 189 MPV 11.4 11.1 11.1 Chemistry: Recent Labs 05/23/22 1222 05/23/22 1907 05/23/22 2105 05/24/22 0725 05/25/22 0730 NA -- -- 132* 132* 134* K -- -- 4.3 4.1 3.9 CL -- -- 97* 99 102 CO2 -- -- GLUCOSE -- -- 416* 391* 287* BUN -- -- 34* 31* 25* CREATININE -- -- 2.08* 2.04* 1.70* MG -- -- -- 1.8 -- ANIONGAP -- -- 12 11 9 LABGLOM -- -- 41* 42* 53* CALCIUM -- -- 10.6* 10.0 9.6 TROPHS 138* 113* -- -- -- Recent Labs 05/23/22 1222 05/23/22 1617 05/24/22 0725 05/24/22 1124 05/24/22 1550 05/24/22 1957 05/25/22 0716 05/25/22 1121 LABA1C 10.1* -- -- -- -- -- -- -- LIPASE 59 -- -- -- -- -- -- -- CHOL -- -- 330* -- -- -- -- -- HDL -- -- 40* -- -- -- -- -- LDLCHOLESTEROL -- -- -- -- -- -- -- CHOLHDLRATIO -- -- 8.3* -- -- -- -- -- TRIG -- -- 577* -- -- -- -- -- POCGLU -- < > 367* 417* 364* 293* 253* 266* < > = values in this interval not displayed. ABG: Lab Results Component Value Date/Time POCPH 7.392 09/06/2021 04:41 AM POCPCO2 48.2 09/06/2021 04:41 AM POCPO2 98.0 09/06/2021 04:41 AM POCHCO3 29.3 09/06/2021 04:41 AM NBEA 2 09/03/2021 04:09 AM PBEA 4 09/06/2021 04:41 AM OPSF8ZXQ 98 09/06/2021 04:41 AM FIO2 40.0 09/06/2021 04:41 AM Lab Results Component Value Date/Time SPECIAL R HAND 10ML 09/08/2021 10:04 AM Lab Results Component Value Date/Time CULTURE NO GROWTH 5 DAYS 09/08/2021 10:04 AM Radiology: US RETROPERITONEAL COMPLETE Result Date: 05/24/2022 Normal renal length and echotexture without obstruction. Physical Examination: Physical Exam Constitutional: Appearance: He is obese. He is not ill-appearing. HENT: Head: Normocephalic and atraumatic. Right Ear: External ear normal. Left Ear: External ear normal. Nose: Nose normal. Mouth/Throat: Mouth: Mucous membranes are dry. Eyes: Pupils: Pupils are equal, round, and reactive to light. Cardiovascular: Rate and Rhythm: Normal rate and regular rhythm. Heart sounds: No murmur heard. Pulmonary: Comments: Decreased breath sounds bilaterally Abdominal: General: There is no distension. Palpations: Abdomen is soft. Tenderness: There is no abdominal tenderness. Musculoskeletal: Right lower leg: No edema. Left lower leg: No edema. Skin: General: Skin is warm and dry. Capillary Refill: Capillary refill takes less than 2 seconds. Neurological: General: No focal deficit present. Mental Status: He is alert and oriented to person, place, and time. Mental status is at baseline. Psychiatric: Mood and Affect: Mood normal. Behavior: Behavior normal. Assessment: Hospital Problems Last Modified POA * (Principal) NSTEMI (non-ST elevated myocardial infarction) ([facility]) 05/23/2022 Yes Hypertensive crisis 05/23/2022 Yes OZZIE (acute kidney injury) ([facility]) 05/24/2022 Yes Morbid obesity ([facility]) 05/24/2022 Yes Anxiety 05/23/2022 Yes Allergic rhinitis 05/23/2022 Yes HHNC (hyperglycemic hyperosmolar nonketotic coma) ([facility]) 05/23/2022 Yes Hypertension, essential 05/24/2022 Yes Overview Signed 09/28/2021 1:05 PM by Anna Serrano MD Blood pressures running in the 140-150 systolic range Plan: NSTEMI. Appreciate cardiology recommendations. Heparin drip. Nifedipine, asa, liptior, coreg, fenofibrate, CKD with improving creatinine. Appreciate nephrology recommendations. Mucomyst, IVF Possible plan for cardiac cath tomorrow if Creatinine less than 1.5 Diabetes hba1c 10.1 lantus, ISS, consult to diabetes education Depression. Prozac 10 mg Encourage medical compliance. NPO at midnight. Gi prophylaxis protonix Yanelis Grijalva MD 05/25/2022 2:35 PM Nephrology Progress Note SUBJECTIVE Patient was seen and examined. No new issues reported overnight. Does not report any nausea vomiting diarrhea, no chest pain, no shortness of breath reported. He states that he feels better. Patient is newly diagnosed diabetic and HbA1c is 10.1 Cardiology evaluation in process for concern of NSTEMI and will possibly need cardiac catheterization. BMP results from today reviewed creatinine did improve to 1.70 mg/dl, BUN 25, electrolytes stable with sodium 134, potassium 3.9, chloride 102, bicarb 23, calcium 9.6. Patient is currently on LR at 100 cc an hour. US renal 05/23/22 shows normal renal length and echotexture without obstruction. Right kidney measuring 10.2 cm and left kidney measuring 10.3 cm. Cystic-appearing lesion 3.0 cm within the right kidney. OBJECTIVE CURRENT TEMPERATURE: Temp: 98.2 F (36.8 C) MAXIMUM TEMPERATURE OVER 24HRS: Temp (24hrs), Av.9 F (36.6 C), Min:97.7 F (36.5 C), Max:98.2 F (36.8 C) CURRENT RESPIRATORY RATE: Resp: 18 CURRENT PULSE: Heart Rate: 89 CURRENT BLOOD PRESSURE: BP: (!) 153/94 24HR BLOOD PRESSURE RANGE: Systolic (24hrs), Av , Min:130 , Max:185 ; Diastolic (24hrs), Av, Min:57, Max:105 24HR INTAKE/OUTPUT: Intake/Output Summary (Last 24 hours) at 05/25/2022 1409 Last data filed at 05/24/2022 1947 Gross per 24 hour Intake 10 ml Output 1200 ml Net -1190 ml PHYSICAL EXAM General appearance:Awake, alert, in no acute distress on room air Skin: warm and dry, no rash or erythema Eyes: conjunctivae normal and sclera anicteric ENT: :no thrush, moist mucous membranes, piercing inferior to the lower left Neck: no JVD, midline trachea and no excess or muscle use Pulmonary: good bilateral air entry and clear to auscultation bilaterally and symmetric without wheezes or rales or rhonchi Cardiovascular: regular rate and rhythm with positive S1 and S2, positive systolic murmur and no rubs Abdomen: obese and soft nontender, bowel sounds present, no appreciable ascites Extremities: No edema CURRENT MEDICATIONS fenofibrate (TRIGLIDE) tablet 160 mg, Daily [START ON 05/26/2022] NIFEdipine (PROCARDIA XL) extended release tablet 60 mg, Daily insulin glargine (LANTUS) injection vial 30 Units, BID glucose chewable tablet 16 g, PRN dextrose bolus 10% 125 mL, PRN Or dextrose bolus 10% 250 mL, PRN glucagon (rDNA) injection 1 mg, PRN dextrose 10 % infusion, Continuous PRN carvedilol (COREG) tablet 25 mg, BID FLUoxetine (PROZAC) capsule 10 mg, Daily [Held by provider] lisinopril (PRINIVIL;ZESTRIL) tablet 5 mg, Daily sodium chloride flush 0.9 % injection 5-40 mL, 2 times per day sodium chloride flush 0.9 % injection 10 mL, PRN 0.9 % sodium chloride infusion, PRN potassium chloride (KLOR-CON M) extended release tablet 40 mEq, PRN Or potassium bicarb-citric acid (EFFER-K) effervescent tablet 40 mEq, PRN Or potassium chloride 10 mEq/100 mL IVPB (Peripheral Line), PRN magnesium sulfate 1000 mg in dextrose 5% 100 mL IVPB, PRN acetaminophen (TYLENOL) tablet 650 mg, Q6H PRN Or acetaminophen (TYLENOL) suppository 650 mg, Q6H PRN atorvastatin (LIPITOR) tablet 80 mg, Nightly nitroGLYCERIN (NITROSTAT) SL tablet 0.4 mg, Q5 Min PRN dextrose 5 % and 0.45 % sodium chloride infusion, Continuous PRN polyethylene glycol (GLYCOLAX) packet 17 g, Daily PRN dextrose bolus 10% 125 mL, PRN Or dextrose bolus 10% 250 mL, PRN aspirin chewable tablet 81 mg, Daily heparin (porcine) injection 4,000 Units, Once heparin (porcine) injection 4,000 Units, PRN heparin (porcine) injection 2,000 Units, PRN heparin 25,000 units in dextrose 5 % 250 mL infusion (rate based), Continuous lactated ringers IV soln infusion, Continuous insulin lispro (HUMALOG) injection vial 0-8 Units, TID WC insulin lispro (HUMALOG) injection vial 0-4 Units, Nightly LABS CBC: Recent Labs 05/23/22 1222 05/24/22 0725 05/25/22 0730 WBC 10.9 10.7 8.6 RBC 5.20 4.50 4.32 HGB 15.5 13.4 12.8* HCT 43.4 39.0* 37.5* MCV 83.5 86.7 86.8 MCH 29.8 29.8 29.6 MCHC 35.7* 34.4 34.1 RDW 12.4 13.1 13.2 PLT 248 198 189 MPV 11.4 11.1 11.1 BMP: Recent Labs 05/23/22 2105 05/24/22 0725 05/25/22 0730 NA 132* 132* 134* K 4.3 4.1 3.9 CL 97* 99 102 CO2 23 22 23 BUN 34* 31* 25* CREATININE 2.08* 2.04* 1.70* GLUCOSE 416* 391* 287* CALCIUM 10.6* 10.0 9.6 MAGNESIUM: Recent Labs 05/24/22 0725 MG 1.8 MARIO: Lab Results Component Value Date MARIO NEGATIVE 08/30/2021 SPEP: Lab Results Component Value Date/Time PROT 7.7 10/06/2021 11:32 AM ALBCAL 3.1 09/02/2021 12:25 PM ALBPCT 53 09/02/2021 12:25 PM LABALPH 0.4 09/02/2021 12:25 PM LABALPH 0.8 09/02/2021 12:25 PM A1PCT 7 09/02/2021 12:25 PM A2PCT 13 09/02/2021 12:25 PM LABBETA 0.9 09/02/2021 12:25 PM BETAPCT 16 09/02/2021 12:25 PM GAMGLOB 0.7 09/02/2021 12:25 PM GGPCT 11 09/02/2021 12:25 PM PATH ELECTRONICALLY SIGNED. ZOE STERN M.D. 09/02/2021 12:25 PM PATH ELECTRONICALLY SIGNED. ZOE STERN M.D. 09/02/2021 12:25 PM UPEP: Lab Results Component Value Date/Time TPU 102 12/09/2021 02:11 PM HEPBSAG: Lab Results Component Value Date/Time HEPBSAG NONREACTIVE 09/02/2021 12:25 PM HEPCAB: Lab Results Component Value Date/Time HEPCAB NONREACTIVE 09/02/2021 12:25 PM C3: Lab Results Component Value Date C3 183 (H) 09/02/2021 C4: Lab Results Component Value Date C4 29 09/02/2021 MPO ANCA: Lab Results Component Value Date/Time MPO <0.3 08/30/2021 10:34 AM . PR3 ANCA: Lab Results Component Value Date/Time PR3 0.9 08/30/2021 10:34 AM URINE CREATININE: Lab Results Component Value Date/Time LABCREA 123.3 05/23/2022 02:21 AM URINE PROTEIN: Lab Results Component Value Date/Time TPU 102 12/09/2021 02:11 PM URINALYSIS: U/A: Lab Results Component Value Date/Time NITRU NEGATIVE 05/23/2022 02:21 AM COLORU Yellow 05/23/2022 02:21 AM PHUR 5.5 05/23/2022 02:21 AM WBCUA 2 TO 5 05/23/2022 02:21 AM RBCUA 0 TO 2 05/23/2022 02:21 AM SPECGRAV 1.025 05/23/2022 02:21 AM LEUKOCYTESUR NEGATIVE 05/23/2022 02:21 AM UROBILINOGEN Normal 05/23/2022 02:21 AM BILIRUBINUR NEGATIVE 05/23/2022 02:21 AM GLUCOSEU 3+ 05/23/2022 02:21 AM KETUA NEGATIVE 05/23/2022 02:21 AM RADIOLOGY Reviewed as available. ASSESSMENT Acute kidney injury likely secondary to uncontrolled hypertension and possibly exacerbated by the patient's chest pain and possible decrease in cardiac output with an underlying cardiomyopathy and mitral valve regurgitation based on previous echo; UPC 0.62; UA shows 2 to 5 hyaline casts; 3+ glucose, 2+ protein, negative for UTI. Underlying chronic kidney disease with baseline creatinine 1.3-1.[address] Serrano's notes. Likely secondary to hypertensive and diabetic nephropathy, Creatinine 2.26>>2.08>>2.04 today; Concern for NSTEMI, on heparin gtt, Primary hypertension with decrease control apparently on he presented to the outside hospital but good control currently Morbid obesity (BMI 48.06) Chest pain syndrome with elevated troponin History of proteinuria History of primary hyperparathyroidism and hypercalcemia Translocational hyponatremia secondary to hyperglycemia with corrected serum sodium within normal limits Dyslipidemia Type-2 DM; Newly diagnosed; HbA1c 10.1, Cardiopathy with EF of 35% as per 2D echo done in August 2021. IAN. History of pericardial effusion status post pericardiocentesis in the past in August 2021. History of hypercalcemia now better. History of multiple punctate acute infarcts likely embolic. Cystic appearing lesion measuring 3.0 cm in the right kidney as per renal ultrasound done on 05/23/2022. PLAN Change IV fluids to normal saline at 75 cc an hour. Will add mucomyst as well. Continue to monitor strict I's and O's and renal function. Management of NSTEMI per cardiology and primary team. If creatinine is less than 1.5 tomorrow, patient should be okay to get cardiac catheterization. Contrast related renal risks all the way up to the possibility of requiring dialysis was explained to the patient and he was okay with getting the procedure done as required. Patient does have an outpatient neurology appointment with Dr. Victoria in in [place] on 06/21/2022 and will follow-up about his renal cysts there. BMP in AM. Will follow. Please do not hesitate to call with questions. Talib Saldaña MD [facility] This note is created with the assistance of a speech-recognition program. While intending to generate a document that actually reflects the content of the visit, no guarantees can be provided that every mistake has been identified and corrected by editing. Images from the original note were not included. Susan Sales Account Executive Progress Note Date: 05/25/2022 Patient name: Elias Walker Date of admission: 05/23/2022 12:00 PM Date of : 1985 PCP: Jose Khanna APRN - RECREATION SUPERVISOR Reason for Admission: NSTEMI (non-ST elevated myocardial infarction) (HCC) [I21.4] Subjective: Clinical Changes /Abnormalities: Patient was seen and examined in room with girlfriend. He denies chest pain and shortness of breath. ECHO completed this morning. Pending read. Labs/vitals/tele reviewed. Discussed with RN, no acute CV issues or concerns. Review of Systems Medications: Scheduled Meds: fenofibrate 160 mg Oral Daily insulin glargine 30 Units SubCUTAneous BID carvedilol 25 mg Oral BID FLUoxetine 10 mg Oral Daily [Held by provider] lisinopril 5 mg Oral Daily NIFEdipine 30 mg Oral Daily sodium chloride flush 5-40 mL IntraVENous 2 times per day atorvastatin 80 mg Oral Nightly aspirin 81 mg Oral Daily heparin (porcine) 4,000 Units IntraVENous Once insulin lispro 0-8 Units SubCUTAneous TID WC insulin lispro 0-4 Units SubCUTAneous Nightly Continuous Infusions: dextrose sodium chloride dextrose 5 % and 0.45 % NaCl heparin (PORCINE) Infusion 11 Units/kg/hr (05/25/22 0919) lactated ringers IV soln 100 mL/hr at 05/25/22 0513 CBC: Recent Labs 05/23/22 1222 05/24/22 0725 05/25/22 0730 WBC 10.9 10.7 8.6 HGB 15.5 13.4 12.8* PLT 248 198 189 BMP: Recent Labs 05/23/22 2105 05/24/22 0725 05/25/22 0730 NA 132* 132* 134* K 4.3 4.1 3.9 CL 97* 99 102 CO2 BUN 34* 31* 25* CREATININE 2.08* 2.04* 1.70* GLUCOSE 416* 391* 287* Hepatic:No results for input(s): AST, ALT, ALB, BILITOT, ALKPHOS in the last 72 hours. Troponin: Recent Labs 05/23/22 1222 05/23/22 1907 TROPHS 138* 113* BNP: No results for input(s): BNP in the last 72 hours. Lipids: Recent Labs 05/24/22 0725 CHOL 330* HDL 40* INR: No results for input(s): INR in the last 72 hours. EKG: Date: 05/24/22 Reading: Normal sinus rhythm Nonspecific ST and T wave abnormality Abnormal ECG When compared with ECG of 23-MAY-2022 13:07, No significant change was found LAST ECHO: Date: 09/02/2021 Findings Summary: The study was performed by the Rn Acute Care, Cardiac Fellow, and the Acid Wash Operator in the [place] without complications. Consent was obtained from the family. The patient tolerated the procedure well. Conscious sedation was used. No clots were visualized in the left atrial appendage. Estimated ejection fraction is 50% No valvular vegetations or thrombus were identified Objective: Vitals: BP (!) 153/94 Pulse 89 Temp 98.2 F (36.8 C) (Oral) Resp 18 Ht 5' 4 (1.626 m) Wt 282 lb 3 oz (128 kg) SpO2 94% BMI 48.44 kg/m General appearance: alert and cooperative with exam HEENT: Head: Normocephalic, no lesions, without obvious abnormality. Neck:no JVD, trachea midline, no adenopathy Lungs: Clear to auscultation Heart: Regular rate and rhythm, s1/s2 auscultated, no murmurs, SR Abdomen: soft, non-tender, bowel sounds active Extremities: no edema Neurologic: not done Assessment / Acute Cardiac Problems: NSTEMI. HTN. DM. CKD. Patient Active Problem List: Priapism, unspecified Cardiac tamponade Acute respiratory failure with hypoxia (HCC) Acute heart failure (HCC) Acute pulmonary edema (HCC) Pericardial effusion with cardiac tamponade Pericardial effusion Pleural effusion Rhinovirus infection Fever Sepsis due to Streptococcus species without acute organ dysfunction ([facility]) Staphylococcus aureus pneumonia (HCC) Delirium Cerebral septic emboli (HCC) OZZIE (acute kidney injury) (HCC) Hypercalcemia Cerebral embolism Cerebrovascular accident (CVA) (HCC) Septicemia (HCC) Dilated cardiomyopathy (HCC) Hypertension, essential Persistent proteinuria CKD (chronic kidney disease), stage III ([facility]) NSTEMI (non-ST elevated myocardial infarction) (HCC) Hypertensive crisis Morbid obesity (HCC) Anxiety Allergic rhinitis HHNC (hyperglycemic hyperosmolar nonketotic coma) (HCC) Plan of Treatment: Stable. Troponin elevated, trending down, flat. Denies chest pain. Recommend cardiac cath per Dr. Esquivel once renal function improved. Continue to hold off on cardiac cath per Dr. Saldaña unless emergent. Appreciate assistance. Continue ASA, statin, and heparin gtt. ECHO completed, pending read. HTN. Elevated. Continue BB and Nifedipine. Will increase Nifedipine to 60 mg QD. TYRON on hold due to OZZIE. Rest of care per primary. Attensa Sales Account Executive [facility]. [phone] Patient notifies field underwriter that he will be seeing Dr. Victoria- urology in [place], [place] on 06/21/2022. Echo completed in the Echo Lab. Definity administered by RN (2mL of Diluted Bolus) Cage Shift Manager notifies nephrology for cardiac clearance. Awaiting further directions and orders. Images from the original note were not included. Physical Therapy Physical Therapy Cancel Note DATE: 05/24/2022 NAME: Elias Walker : 1985 Patient not seen this date for Physical Therapy due to: Patient independent with functional mobility. Will defer PT evaluation at this time. Please reorder PT if future needs arise. Congestive Heart Failure Education completed and charted. CHF booklet given. Patient was receptive to education. Discussed the importance of medication compliance. Discussed the importance of a heart healthy diet. Discussed 2000 mg sodium-restricted daily diet. Patient instructed to limit fluid intake to 1.5 to 2 liters per day. Patient instructed to weigh self at the same time of each day each morning, reinforced teaching to monitor for 3-5 lb weight increase over 1-2 days notify physician if change noted. Signs and symptoms of CHF discussed with patient, such as feeling more tired than normal, feeling short of breath, coughing that increases when lying down, sudden weight gain, swelling of the feet, legs or belly. Patient verbalized understanding to notify physician office if these symptoms occur. EF 50% Images from the original note were not included. Occupational Therapy [facility] Occupational Therapy Not Seen Note DATE: 05/24/2022 NAME: Elias Walker : 1985 Patient not seen this date for Occupational Therapy due to: Patient independent with ADLs and functional tasks with no acute OT needs per RN and pt report. Pt reports no safety concerns for returning home at discharge. Will defer OT evaluation at this time. Please reorder OT if future needs arise. Nephrology Progress Note SUBJECTIVE Patient was seen at bedside and chart reviewed. No acute events overnight. Patient remained afebrile and hemodynamically stable. Patient is newly diagnosed diabetic and HbA1c is 10.1 Cardiology evaluation in process for concern of NSTEMI. Patient is currently on heparin drip. Patient currently denies any chest pain or shortness of breath. Labs reviewed: Na 132, K 4.1, Cl 99, BUN 31<<34; Cr 2.04<<2.08; Mag 1.8; Ca 10.0<<10.6, glucose 391, Total cholesterol 330, Triglycerides 577. HbA1c 10.1, WBC 10.7; hgb 13.4; Plt 198 Troponin 138>>113; UPC 0.62; UA shows 2 to 5 hyaline casts; 3+ glucose, 2+ protein, negative for UTI. Urine output not documented. Lisinopril on hold. Currently on LR at 100 cc an hour. US renal 05/23/22 shows normal renal length and equal texture without obstruction. Right kidney measuring 10.2 cm and left kidney measuring 10.3 cm. OBJECTIVE CURRENT TEMPERATURE: Temp: 97.6 F (36.4 C) MAXIMUM TEMPERATURE OVER 24HRS: Temp (24hrs), Av F (36.7 C), Min:97.6 F (36.4 C), Max:98.2 F (36.8 C) CURRENT RESPIRATORY RATE: Resp: 18 CURRENT PULSE: Heart Rate: 83 CURRENT BLOOD PRESSURE: BP: 138/82 24HR BLOOD PRESSURE RANGE: Systolic (24hrs), Av , Min:114 , Max:142 ; Diastolic (24hrs), Av, Min:60, Max:99 24HR INTAKE/OUTPUT: No intake or output data in the 24 hours ending 05/24/22 1017 PHYSICAL EXAM General appearance:Awake, alert, in no acute distress on room air Skin: warm and dry, no rash or erythema Eyes: conjunctivae normal and sclera anicteric ENT: :no thrush, moist mucous membranes, piercing inferior to the lower left Neck: no JVD, midline trachea and no excess or muscle use Pulmonary: good bilateral air entry and clear to auscultation bilaterally and symmetric without wheezes or rales or rhonchi Cardiovascular: regular rate and rhythm with positive S1 and S2, positive systolic murmur and no rubs Abdomen: obese and soft nontender, bowel sounds present, no appreciable ascites Extremities: no edema CURRENT MEDICATIONS carvedilol (COREG) tablet 25 mg, BID FLUoxetine (PROZAC) capsule 10 mg, Daily [Held by provider] lisinopril (PRINIVIL;ZESTRIL) tablet 5 mg, Daily NIFEdipine (PROCARDIA XL) extended release tablet 30 mg, Daily sodium chloride flush 0.9 % injection 5-40 mL, 2 times per day sodium chloride flush 0.9 % injection 10 mL, PRN 0.9 % sodium chloride infusion, PRN potassium chloride (KLOR-CON M) extended release tablet 40 mEq, PRN Or potassium bicarb-citric acid (EFFER-K) effervescent tablet 40 mEq, PRN Or potassium chloride 10 mEq/100 mL IVPB (Peripheral Line), PRN magnesium sulfate 1000 mg in dextrose 5% 100 mL IVPB, PRN acetaminophen (TYLENOL) tablet 650 mg, Q6H PRN Or acetaminophen (TYLENOL) suppository 650 mg, Q6H PRN atorvastatin (LIPITOR) tablet 80 mg, Nightly nitroGLYCERIN (NITROSTAT) SL tablet 0.4 mg, Q5 Min PRN dextrose 5 % and 0.45 % sodium chloride infusion, Continuous PRN polyethylene glycol (GLYCOLAX) packet 17 g, Daily PRN dextrose bolus 10% 125 mL, PRN Or dextrose bolus 10% 250 mL, PRN aspirin chewable tablet 81 mg, Daily heparin (porcine) injection 4,000 Units, Once heparin (porcine) injection 4,000 Units, PRN heparin (porcine) injection 2,000 Units, PRN heparin 25,000 units in dextrose 5 % 250 mL infusion (rate based), Continuous lactated ringers IV soln infusion, Continuous insulin glargine (LANTUS) injection vial 25 Units, Nightly insulin lispro (HUMALOG) injection vial 0-8 Units, TID WC insulin lispro (HUMALOG) injection vial 0-4 Units, Nightly LABS CBC: Recent Labs 05/23/22 1222 05/24/22 0725 WBC 10.9 10.7 RBC 5.20 4.50 HGB 15.5 13.4 HCT 43.4 39.0* MCV 83.5 86.7 MCH 29.8 29.8 MCHC 35.7* 34.4 RDW 12.4 13.1 PLT 248 198 MPV 11.4 11.1 BMP: Recent Labs 05/23/22 1219 05/23/22 2105 05/24/22 0725 NA -- 132* 132* K -- 4.3 4.1 CL -- 97* 99 CO2 -- BUN -- 34* 31* CREATININE 2.26* 2.08* 2.04* GLUCOSE -- 416* 391* CALCIUM -- 10.6* 10.0 MAGNESIUM: Recent Labs 03/21/23 0725 MG 1.8 MARIO: Lab Results Component Value Date MARIO NEGATIVE 08/30/2021 SPEP: Lab Results Component Value Date/Time PROT 7.7 10/06/2021 11:32 AM ALBCAL 3.1 09/02/2021 12:25 PM ALBPCT 53 09/02/2021 12:25 PM LABALPH 0.4 09/02/2021 12:25 PM LABALPH 0.8 09/02/2021 12:25 PM A1PCT 7 09/02/2021 12:25 PM A2PCT 13 09/02/2021 12:25 PM LABBETA 0.9 09/02/2021 12:25 PM BETAPCT 16 09/02/2021 12:25 PM GAMGLOB 0.7 09/02/2021 12:25 PM GGPCT 11 09/02/2021 12:25 PM PATH ELECTRONICALLY SIGNED. ZOE STERN M.D. 09/02/2021 12:25 PM PATH ELECTRONICALLY SIGNED. ZOE STERN M.D. 09/02/2021 12:25 PM UPEP: Lab Results Component Value Date/Time TPU 102 12/09/2021 02:11 PM HEPBSAG: Lab Results Component Value Date/Time HEPBSAG NONREACTIVE 09/02/2021 12:25 PM HEPCAB: Lab Results Component Value Date/Time HEPCAB NONREACTIVE 09/02/2021 12:25 PM C3: Lab Results Component Value Date C3 183 (H) 09/02/2021 C4: Lab Results Component Value Date C4 29 09/02/2021 MPO ANCA: Lab Results Component Value Date/Time MPO <0.3 08/30/2021 10:34 AM . PR3 ANCA: Lab Results Component Value Date/Time PR3 0.9 08/30/2021 10:34 AM URINE CREATININE: Lab Results Component Value Date/Time LABCREA 123.3 05/23/2022 02:21 AM URINE PROTEIN: Lab Results Component Value Date/Time TPU 102 12/09/2021 02:11 PM URINALYSIS: U/A: Lab Results Component Value Date/Time NITRU NEGATIVE 05/23/2022 02:21 AM COLORU Yellow 05/23/2022 02:21 AM PHUR 5.5 05/23/2022 02:21 AM WBCUA 2 TO 5 05/23/2022 02:21 AM RBCUA 0 TO 2 05/23/2022 02:21 AM SPECGRAV 1.025 05/23/2022 02:21 AM LEUKOCYTESUR NEGATIVE 05/23/2022 02:21 AM UROBILINOGEN Normal 05/23/2022 02:21 AM BILIRUBINUR NEGATIVE 05/23/2022 02:21 AM GLUCOSEU 3+ 05/23/2022 02:21 AM KETUA NEGATIVE 05/23/2022 02:21 AM RADIOLOGY Reviewed as available. ASSESSMENT Acute kidney injury likely secondary to uncontrolled hypertension and possibly exacerbated by the patient's chest pain and possible decrease in cardiac output with an underlying cardiomyopathy and mitral valve regurgitation based on previous echo; UPC 0.62; UA shows 2 to 5 hyaline casts; 3+ glucose, 2+ protein, negative for UTI. Underlying chronic kidney disease with baseline creatinine 1.3-1.[address] Serrano's notes. Likely secondary to hypertensive and diabetic nephropathy, Creatinine 2.26>>2.08>>2.04 today; Concern for NSTEMI, on heparin gtt, Primary hypertension with decrease control apparently on he presented to the outside hospital but good control currently Morbid obesity (BMI 48.06) Chest pain syndrome with elevated troponin History of proteinuria History of primary hyperparathyroidism and hypercalcemia Translocational hyponatremia secondary to hyperglycemia with corrected serum sodium within normal limits Dyslipidemia Type-2 DM; Newly diagnosed; HbA1c 10.1, Cardiopathy with EF of 35% as per 2D echo done in August 2021. IAN. History of pericardial effusion status post pericardiocentesis in the past in August 2021. History of hypercalcemia now better. History of multiple punctate acute infarcts likely embolic. PLAN Continue IVF LR @ 100 mL/hr. Monitor strict input and outputs. Management of NSTEMI per cardiology and primary team. Continue to hold cardiac catheterization due to underlying renal dysfunction unless emergent. BMP in AM. Will follow. Please do not hesitate to call with questions. Terrance Echeverria MD, MPH, PGY-2 Internal Medicine Resident [facility], [place], [place] Attending Physician Statement I have discussed the care of this patient, including pertinent history and exam findings, with the Resident/RECREATION SUPERVISOR. I have reviewed and edited the salguero elements of all parts of the encounter with the Resident/RECREATION SUPERVISOR. I agree with the assessment, plan and orders as documented by the Resident/RECREATION SUPERVISOR. Talib Saldaña MD [facility] This note is created with the assistance of a speech-recognition program. While intending to generate a document that actually reflects the content of the visit, no guarantees can be provided that every mistake has been identified and corrected by editing. Images from the original note were not included. [facility] Office: [phone] Sony Raymond DO, Brodie Campos DO, Skip Diggs DO, Rubén Swain DO, Lee Ann Saldaña MD, Love Cortez MD, Sultana Harley MD, Solange Mercer MD, Augusto Santizo MD, Lukas Angulo MD, Avelino Kent DO, Yanelis Grijalva MD, Fly Zapata DO, Jeaneth Begum MD, John Ricks MD, Madison Raymond DO, Nasra Schulte MD, Alessio Bhat MD, Eddie Rader DO, Tiara Ladd MD, Emma Arnold MD, Meghann Cooper MD, Michele Hardin MD, Jennifer Guo MD, Jerry Davis DO, Justin Gaines MD, Loco Wilks MD, Mayra Chicas CNP, Riri Serna CNP, Desire Harley CNP, Ariel Stewart CNP, Jennifer Magaña, UMESH, Patricia Harrington CNP, Pauline Charles CNP, Kelli Sarah CNP, Elizabeth Cummings CNP, Karlie Kenney CNP, Ben Cesar PA-C, Sherron Ngo, SUPERVISOR [employer], Nyasia Lea, RECREATION SUPERVISOR, Ivonne Alicea, RECREATION SUPERVISOR [facility] IN-PATIENT SERVICE [facility] Progress Note 05/24/2022 9:47 AM Name: Elias Walker Acct: [id number] Room: [address] [place] [address] Day: 1 Admit Date: 05/23/2022 12:00 PM PCP: KENNETH Taylor CNP Code Status: Full Code Subjective: C/C: Chief Complaint Patient presents with Chest Pain No longer has chest pain, presented to [facility] with chest pain Polydipsia Interval History Status: improved. Brief History: Elias Walker is a 36 y.o. who initially presented to OSH for evaluation of sudden onset chest pian that started while he was sitting down 2 nights ago. Describes an 8/10 stabbing pain located in left chest wall that radiated to his shoulder and kept him awake all night. This pain is atypical. Pain was constant and only improved once he went to the hospital and received fluids/heparin and medical treatment. His pain is much improved now. He says his blood pressure was elevated >200 systolic . He has a history of HTN and says his blood pressure is typically well controlled. On admission blood glucose was >1100. He has no known history of diabetes. He has noticed increase in thirst and polyuria. He does feel dehydrated but denies any weight loss. Per OSH records, his blood did appear limepimc. 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 He denies any NSAID use. BG improving - get beta hydroxybutyrate Review of Systems: Constitutional: negative for chills, fevers, sweats Respiratory: negative for cough, dyspnea on exertion, shortness of breath, wheezing Cardiovascular: negative for chest pain, chest pressure/discomfort, lower extremity edema, palpitations Gastrointestinal: negative for abdominal pain, constipation, diarrhea, nausea, vomiting Neurological: negative for dizziness, headache Medications: Allergies: Allergies Allergen Reactions Food Watermelon, Honeydew, Cantelope Tomato Current Meds: Scheduled Meds: carvedilol 25 mg Oral BID FLUoxetine 10 mg Oral Daily [Held by provider] lisinopril 5 mg Oral Daily NIFEdipine 30 mg Oral Daily sodium chloride flush 5-40 mL IntraVENous 2 times per day atorvastatin 80 mg Oral Nightly aspirin 81 mg Oral Daily heparin (porcine) 4,000 Units IntraVENous Once insulin glargine 0.2 Units/kg SubCUTAneous Nightly insulin lispro 0-8 Units SubCUTAneous TID WC insulin lispro 0-4 Units SubCUTAneous Nightly Continuous Infusions: sodium chloride dextrose 5 % and 0.45 % NaCl heparin (PORCINE) Infusion 11 Units/kg/hr (05/24/22 0027) lactated ringers IV soln 100 mL/hr at 05/23/22 1250 PRN Meds: sodium chloride flush, sodium chloride, potassium chloride OR potassium alternative oral replacement OR potassium chloride, magnesium sulfate, acetaminophen OR acetaminophen, nitroGLYCERIN, dextrose 5 % and 0.45 % NaCl, polyethylene glycol, dextrose bolus OR dextrose bolus, heparin (porcine), heparin (porcine) Data: Past Medical History: has a past medical history of CKD (chronic kidney disease), stage III (HCC), Dilated cardiomyopathy (HCC), Hypertension, Persistent proteinuria, Priapism, unspecified, and Primary hypertension. Social History: reports that he quit smoking about 8 months ago. His smoking use included cigarettes. He has a 15.00 pack-year smoking history. He quit smokeless tobacco use about 2 years ago. His smokeless tobacco use included snuff. He reports current alcohol use. He reports that he does not use drugs. Family History: History reviewed. No pertinent family history. Vitals: BP 138/82 Pulse 83 Temp 97.6 F (36.4 C) (Oral) Resp 18 Ht 5' 4 (1.626 m) Wt 280 lb (127 kg) SpO2 92% BMI 48.06 kg/m Temp (24hrs), Av F (36.7 C), Min:97.6 F (36.4 C), Max:98.2 F (36.8 C) Recent Labs 05/23/22 1617 05/23/22 2036 05/24/22 0340 05/24/22 0725 POCGLU 413* 423* 362* 367* I/O (24Hr): No intake or output data in the 24 hours ending 05/24/22 0947 Labs: Hematology: Recent Labs 05/23/22 1222 05/24/22 0725 WBC 10.9 10.7 RBC 5.20 4.50 HGB 15.5 13.4 HCT 43.4 39.0* MCV 83.5 86.7 MCH 29.8 29.8 MCHC 35.7* 34.4 RDW 12.4 13.1 PLT 248 198 MPV 11.4 11.1 Chemistry: Recent Labs 05/23/22 1219 05/23/22 1222 05/23/22 1907 05/23/22 2105 05/24/22 0725 NA -- -- -- 132* 132* K -- -- -- 4.3 4.1 CL -- -- -- 97* 99 CO2 -- -- -- GLUCOSE -- -- -- 416* 391* BUN -- -- -- 34* 31* CREATININE 2.26* -- -- 2.08* 2.04* MG -- -- -- -- 1.8 ANIONGAP -- -- -- 12 11 LABGLOM -- -- -- 41* 42* CALCIUM -- -- -- 10.6* 10.0 TROPHS -- 138* 113* -- -- Recent Labs 05/23/22 1219 05/23/22 1222 05/23/22 1617 05/23/22 2036 05/24/22 0340 05/24/22 0725 LABA1C -- 10.1* -- -- -- -- LIPASE -- 59 -- -- -- -- CHOL -- -- -- -- -- 330* HDL -- -- -- -- -- 40* LDLCHOLESTEROL -- -- -- -- -- CHOLHDLRATIO -- -- -- -- -- 8.3* TRIG -- -- -- -- -- 577* POCGLU 514* -- 413* 423* 362* 367* ABG: Lab Results Component Value Date/Time POCPH 7.392 09/06/2021 04:41 AM POCPCO2 48.2 09/06/2021 04:41 AM POCPO2 98.0 09/06/2021 04:41 AM POCHCO3 29.3 09/06/2021 04:41 AM NBEA 2 09/03/2021 04:09 AM PBEA 4 09/06/2021 04:41 AM [id number] 98 09/06/2021 04:41 AM FIO2 40.0 09/06/2021 04:41 AM Lab Results Component Value Date/Time SPECIAL R HAND 10ML 09/08/2021 10:04 AM Lab Results Component Value Date/Time CULTURE NO GROWTH 5 DAYS 09/08/2021 10:04 AM Radiology: US RETROPERITONEAL COMPLETE Result Date: 05/24/2022 Normal renal length and echotexture without obstruction. Physical Examination: General appearance: alert, cooperative and no distress Mental Status: oriented to person, place and time and normal affect Lungs: clear to auscultation bilaterally, normal effort Heart: regular rate and rhythm, no murmur Abdomen: soft, nontender, nondistended, normal bowel sounds, no masses, hepatomegaly, splenomegaly Extremities: no edema, redness, tenderness in the calves Skin: no gross lesions, rashes, induration Assessment: Hospital Problems Last Modified POA * (Principal) NSTEMI (non-ST elevated myocardial infarction) ([facility]) 05/23/2022 Yes Hypertensive crisis 05/23/2022 Yes Acute kidney injury superimposed on CKD ([facility]) 05/23/2022 Yes Class 3 severe obesity due to excess calories with serious comorbidity and body mass index (BMI) of 45.0 to 49.9 in adult ([facility]) 05/23/2022 Yes Anxiety 05/23/2022 Yes Allergic rhinitis 05/23/2022 Yes HHNC (hyperglycemic hyperosmolar nonketotic coma) ([facility]) 05/23/2022 Yes Primary hypertension 05/23/2022 Yes Overview Signed 09/28/2021 1:05 PM by Anna Serrano MD Blood pressures running in the 140-150 systolic range Plan: Hypertensive emergency - troponin elevation, NSTEMI, cardiology consulted he remains on heparin gtt - CP has improved with BP control BG improving - check BHB Monitor renal function - avoid nephrotoxic agents - still holding ACEi 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 Nephro has been consulted Alessio Bhat MD 05/24/2022 9:47 AM Elias Walker, Seen for evaluation and education on Type 2 uncontrolled,new dx. He stated family history of diabetes and aware of how to use home BG meter, used on self and with other family in past. He has helped with adm of insulins in past also. He trained at [facility] and has ability to read food labels, measure and CHO food group awareness. Lab Results Component Value Date LABA1C 10.1 (H) 05/23/2022 Lab Results Component Value Date EAG 243 05/23/2022 Following Survival Skills education topics were covered as appropriate to patient plan of for care: _x__ Type 2 Diabetes diagnosis as chronic and progressive _x__ Healthy eating - CHO food groups and need for CHO controlled diet. Elimination of sugary beverages, avoid skipping meal _x__ Role of physical activity - bouts of walking, swimming or low impact aerobics as recommended by care providers- aim for 30 minutes per day - limited at this time having CV work up _x__ Blood Glucose Self-Monitoring ( BGSM) /how to use a BG meter - Demonstrated use of a meter for education and practice of BGSM skill __x_ Blood sugar targets Pre meal 80 - 130 and 2 hours post meal < 180 __x_ Hyperglycemia ( BG over 250) signs and symptoms and treatment _x__ Hypoglycemia( BG < than 70) signs and symptoms and treatment Rule of 15 _x__ Keep BG log and take log and meter to follow up HCP appointments- stated Jose Khanna APRN _x__ Medications - Insulin Lantus - Basal ( long acting) / Humalog- Bolus (pre meal) regime - insulin action times. __x_ Importance of dosing rapid insulin from BG result at time of start of meal & administering within 15 minutes of eating meals ( meal time and or corrective ) __x_ Importance of taking long acting insulin at same time each day and not to skip doses ___ Demonstration of self-administering insulin via vial and syringe __x_ Demonstration of self-administering insulin via Pen and pen needle tips __x_ Reinforce safe needle / sharps disposal ___x Insulin injection site rotation ___ Medications - Orals - unsure of home plan - briefly discussed orals as option after CV work up and may also need isulin Following Support materials were provided for patient to take home: _x__ Handout - What is diabetes? cornerstones4 care 2019 _x__ Handout - Eating Healthy for Life at every Meal / Plate method and grocery list from www.DiabetesHealth Krist[employer].org _x__ Handout - How to Check Your Blood Sugar from www.DiabetesHealth [employer].org _x__ Handout - Be safe with [place] teaching sheet - / www.DiabetesHealth [employer].org _x__ Handout - How to Use an Insulin Pen - handout with QR code - Health nielsen Current as of Nov 25 2020 _x__ Emergency Insert sheet for your Vehicle - ADA Diabetes Emergencies _x__ Diabetes ID card - ADA Low and High Blood Sugar and treatments _x__ [facility] Diabetes Education brochure/ contact card Patient needs reinforcement. understanding of survival skills education, once plan for discharge is established RECOMMENDATIONS INPATIENT PLAN: _x__ Cartridge Feeder Consult this admission for education on CHO diet and diet plan for home RECOMMENDATIONS FOR OUTPATIENT PLAN: Diabetes Self-Monitoring Supplies: _x__ Preferred / formulary blood glucose meter for BGSM at home use _x__ Strips and lancets for 4 frequency of home BGSM Diabetes Medications: May be candidate for SGLT-1 - Jardiance _x__ Insulin Pen Basal / long acting - dose per MD _x__ Insulin Pen Bolus pre meal set dose or correction scale - dose per MD Diabetes Education / HCP follow -up : _x_ Would recommend follow -up education at outpatient diabetes education at [facility]. An ordered is needed for this service and can be placed via EHR. Discharge Navigator --- Med Reconciliation -- New orders for discharge tab -- search diabetic ed - REF20 - [facility] - review and sign __x_ Follow -up with HCP / PCP within one week. KHANH ZAPATA RN CDCES Ultrasound at bedside for renal ultrasound Notified air control/anti air warfare officer PROJECT MANAGEMENT INTERN of patients blood sugar check per order documented in this encounter [facility] Phone: 06-06-2022 Hospital course Narrative Cardiothoracic Surgery IN-PATIENT SERVICE [facility] Discharge Summary Patient ID: Elias Walker : 1985 ACCOUNT: [id number] Patient's PCP: KENNETH Taylor CNP Admit Date: 05/23/2022 Discharge Date: 06/06/2022 Length of Stay: 14 Code Status: Full Code Admitting Physician: Ariel Purdy MD Discharge Physician: KENNETH OHARA CNP Active Discharge Diagnoses: Hospital Problem Lists: Principal Problem: Multiple vessel coronary artery disease Active Problems: Hypertensive crisis Acute kidney injury superimposed on CKD (H[facility]) NSTEMI (non-ST elevated myocardial infarction) ([facility]) Morbid obesity (HCC) Anxiety Allergic rhinitis HHNC (hyperglycemic hyperosmolar nonketotic coma) ([facility]) Essential hypertension History of primary hyperparathyroidism IAN (obstructive sleep apnea) History of type 2 diabetes mellitus Resolved Problems: * No resolved hospital problems. * Admission Condition: good Discharged Condition: good Hospital Stay: HPI: Elias Walker is a 36 y.o. year old, male who presented male w/PMHx of Stage 3 CKD, HTN, DM, and dilated cardiomyopathy w/EF 50%. Patient went to outlying facility with complaint of chest pain that radiated to his left arm. Pain was 9/10 associated with diaphoresis and nausea. Pain resolved without taking medications. On admission sugars were 1100 with BP greater than 200. + EKG changes. Troponin trending upward. He was transferred to [facility] for further workup and possible intervention. Cardiac cath revealed multivessel coronary artery disease. EF ~ 60%. No significant valvular disease. Hospital Course: Patent was worked up with CABG and underwent CABGx2 on 06/02/[address]dy. RCA was unable to be grafted at the time due to viable conduit. Surgery was notable for GALAN dissection. Patient presented to CVICU in stable condition with uneventful post-operative course. sCr was monitored closely due to prior hx of CKD stage III. Upon day of discharge sCr continues to downtrend, currently 2.01 with adequate UOP. AT time of discharge patient is HDS on RA. Plan for close follow up with nephrology, and return for PCI to RCA with TCC cardiology in 4 to 6 weeks. Procedure: Median sternotomy, aorto-right atrial cardiopulmonary bypass, CESAR, endoscopic vein harvest, CABG x2 with reverse saphenous vein graft 1 to LAD and reverse saphenous vein graft 2 to large OM, failed catheterization of both left and right radial artery due to severe vasculopathy and peripheral arterial disease, small calcified and unusable left internal mammary artery, which dissected upon being taken down resulting in reverse saphenous vein grafts. Significant Diagnostic Studies: Labs / Micro: CBC: Lab Results Component Value Date/Time WBC 11.3 06/06/2022 07:28 AM RBC 3.39 06/06/2022 07:28 AM HGB 10.1 06/06/2022 07:28 AM HCT 30.3 06/06/2022 07:28 AM MCV 89.4 06/06/2022 07:28 AM MCH 29.8 06/06/2022 07:28 AM MCHC 33.3 06/06/2022 07:28 AM RDW 13.2 06/06/2022 07:28 AM PLT 243 06/06/2022 07:28 AM BMP: Lab Results Component Value Date/Time GLUCOSE 144 06/06/2022 07:28 AM NA 132 06/06/2022 07:28 AM K 4.3 06/06/2022 07:28 AM CL 99 06/06/2022 07:28 AM CO2 21 06/06/2022 07:28 AM ANIONGAP 12 06/06/2022 07:28 AM BUN 27 06/06/2022 07:28 AM CREATININE 2.01 06/06/2022 07:28 AM BUNCRER 18 09/28/2021 01:54 PM CALCIUM 9.6 06/06/2022 07:28 AM LABGLOM 43 06/06/2022 07:28 AM GFRAA >60 10/06/2021 11:32 AM GFR 10/06/2021 11:32 AM Radiology: XR CHEST PORTABLE Result Date: 06/06/2022 Cardiomegaly with stable mild right basilar atelectasis. No new acute process. XR CHEST PORTABLE Result Date: 06/05/2022 1. Low lung volumes with cardiomegaly. XR CHEST PORTABLE Result Date: 06/05/2022 No significant interval change since yesterday's exam given differences in patient positioning and radiographic technique. XR CHEST PORTABLE Result Date: 06/04/2022 Little change from prior study. Support devices as above. Stable cardiomegaly, mild vascular congestion and atelectasis. XR CHEST PORTABLE Result Date: 06/03/2022 Interval removal of endotracheal and intestinal tubes. Continue cardiomegaly and vascular congestion. Support devices as above. XR CHEST PORTABLE Result Date: 06/02/2022 Interval cardiac surgery. Satisfactory position of support devices. Minimal areas of atelectasis. Consultations: Consults: Final Specialist Recommendations/Findings: IP CONSULT TO CARDIOLOGY IP CONSULT TO PRE BILLING SPECIALIST IP CONSULT TO PRE BILLING SPECIALIST IP CONSULT TO NEPHROLOGY IP CONSULT TO PRE BILLING SPECIALIST IP CONSULT TO CARDIOTHORACIC SURGERY IP CONSULT TO PRE BILLING SPECIALIST IP CONSULT TO SPIRITUAL SERVICES IP CONSULT TO IV TEAM IP CONSULT TO CASE MANAGEMENT IP CONSULT TO SPIRITUAL SERVICES IP CONSULT TO CARDIOLOGY IP CONSULT TO CARDIAC REHAB IP CONSULT TO PRE BILLING SPECIALIST IP CONSULT TO CARDIOLOGY The patient was seen and examined on day of discharge and this discharge summary is in conjunction with any daily progress note from day of discharge. Discharge plan: Disposition: Home Physician Follow Up: [facility]ET[facility] [address] [facility] [address] [facility] [phone] Call Follow up education on diabetes self management, As needed Ariel Purdy MD [address] [facility] [address] [facility] [address] Call in 2 week(s) Requiring Further Evaluation/Follow Up POST HOSPITALIZATION/Incidental Findings: Needs PCI to RCA 4-6 weeks post-surgery date with TCC cardiology Discharge Medications: Medication List START taking these medications amiodarone 200 MG tablet Commonly known as: CORDARONE Take 1 tablet by mouth 2 times daily aspirin 81 MG EC tablet Take 1 tablet by mouth daily Start taking on: June 07, 2022 atorvastatin 20 MG tablet Commonly known as: LIPITOR Take 1 tablet by mouth nightly clopidogrel 75 MG tablet Commonly known as: PLAVIX Take 1 tablet by mouth daily Start taking on: June 07, 2022 metoprolol tartrate 25 MG tablet Commonly known as: LOPRESSOR Take 1 tablet by mouth 2 times daily oxyCODONE-acetaminophen 5-325 MG per tablet Commonly known as: PERCOCET Take 1 tablet by mouth every 6 hours as needed for Pain for up to 5 days. Max Daily Amount: 4 tablets pantoprazole 40 MG tablet Commonly known as: PROTONIX Take 1 tablet by mouth daily for 14 days Start taking on: June 07, 2022 polyethylene glycol 17 g packet Commonly known as: GLYCOLAX Take 17 g by mouth daily as needed for Constipation tamsulosin 0.4 MG capsule Commonly known as: FLOMAX Take 1 capsule by mouth daily Start taking on: June 07, 2022 CONTINUE taking these medications cetirizine 10 MG tablet Commonly known as: ZYRTEC FLUoxetine 10 MG tablet Commonly known as: PROZAC fluticasone 27.5 MCG/SPRAY nasal spray Commonly known as: VERAMYST lisinopril 5 MG tablet Commonly known as: PRINIVIL;ZESTRIL NIFEdipine 30 MG extended release tablet Commonly known as: PROCARDIA XL Take 1 tablet by mouth daily Vitamin D3 125 MCG (5000 UT) Tabs STOP taking these medications carvedilol 25 MG tablet Commonly known as: COREG Where to Get Your Medications These medications were sent to [address] [phone] - [phone] [place], [place] [id number] amiodarone 200 MG tablet aspirin 81 MG EC tablet atorvastatin 20 MG tablet clopidogrel 75 MG tablet metoprolol tartrate 25 MG tablet oxyCODONE-acetaminophen 5-325 MG per tablet pantoprazole 40 MG tablet polyethylene glycol 17 g packet tamsulosin 0.4 MG capsule No discharge procedures on file. Beta- Ubaldo: Yes Aspirin: Yes Lovenox: No GI: Yes Plavix: Yes Coumadin: No Statin: Yes TYRON: Yes Electronically signed by KENNETH OHARA CNP 06/06/2022 9:58 AM documented in this encounter [facility] [employer] Phone: 06-06-2022 Hospital Discharge instructions KENNETH Ohara CNP - 06/06/2022 9:52 AM EDT Images from the original note were not included. ACTIVITY/EXERCISE ? It will take 2 to 3 months to feel like you did before surgery in terms of energy and strength. ? Slowly increase your activity after you go home. Pace yourself, listen to your body. If it hurts, stop. During the first 2 months, no digging, outside bike riding, or using arm movement on a stationary bike for sternal precautions. ? The limit on how much you can lift, push or pull is 10 pounds. For the first 4 weeks after surgery, you must not lift anything over 10 pounds. (You cannot lift anything heavier than a gallon of milk). Beginning the 5th week after surgery, you may lift, push or pull up to 20 pounds. ? Begin your walking program on the first day you are home and record how many times per day and number of minutes on your log. You may climb stairs; there are no limits to stair climbing. ? Continue to do your cough and deep breathing exercises and the incentive spirometer 6 times a day as you did in the hospital. ? Do not use arms to get up from a seated position. Instead, rock in your chair to give yourself momentum to sit up. ? You may begin light house hold chores, washing a few dishes, dusting, setting the table or folding laundry. ? You can have sex when it is comfortable for you. The amount of stress on the heart during sex is about the same as climbing 2 flights of stairs. APPETITE ? Your appetite might be decreased at first. It should slowly improve. ? Small, frequent meals, as well as cold foods, may help. ? The dietitian will assist you with a low fat, low cholesterol, low salt diet. ? Consult your open heart binder for diet instructions. TEMPERATURE ? Take your temperature at the same time each day. Take your temperature at 8 a.m. (morning) and 8 p.m. (evening). WEIGHT ? Weigh yourself when you awaken in the morning and record in your daily log. PAIN ? You may have pain at the incision. Shoulder, neck, back and upper chest discomfort are common. Take your pain medications as ordered. ? You may use a heating pad on your neck and shoulders if you have soreness. Never place it on your incision. BOWEL HABITS ? Constipation is common due to Pain medications and inactivity. ? Try drinking prune juice, eating a well balanced diet including fruits, vegetables and whole grains. ? If constipation persists, you may use any rrjc-[id number]-unhbpzi laxative, suppository or enema. DRIVING AND RIDING IN A CAR INSTRUCTIONS ? You may ride in a car, NO DRIVING until seen by your surgeon. ? Your surgeon will tell you when you can resume driving at your postoperative office visit, normally 4 weeks after you are discharged, so he can check your sternal incision. ? No DRIVING while on Prescription pain medication! ? You should always wear the seat belt. It is OK to sit in the front passenger seat. If you are in an accident that causes the air bag to go off...it is better to have the seat belt on and the air bag to protect yourself. INCISIONS ? Warning signs of infection: redness, warmth to touch, green colored pus, tender to touch. Notify surgeon's office right away if any warnings occur. ? Ok to shower daily, no tub baths for the first month following procedure. ? Be sure to rinse the incision with water and pat dry with clean towels. ? Wash your hands before beginning to clean your incisions. ? Wash each of your incisions with Exidine soap and water 2 times a day using a clean wash cloth and towel for each incision each time. Carefully pat incision dry with a towel. ? Female patients, wear a bra 24 hours/day for 2 weeks. Change your bra daily. You may place a gauze between the breasts to reduce moisture. ? Sutures may be removed by any health-manager critical care unit after 7 days from THERESA/chest tube removal. SMOKING If you smoke, STOP. Smoking will cause early graft closure, other blockages, new heart attacks, and possibly even . SLEEPING ? If you have trouble sleeping during the night, take your pain medication at bedtime. SUPPORT STOCKINGS ? Wear at home for 1 month and when the swelling in your legs go away. Take them off at night when you go to bed. ? A family member needs to put them on you, it takes more than 10 pounds of pressure to put them on. ? Hand or machine wash. Line dry. SWELLING OF LEGS ? It is common to have leg swelling, especially if you have a leg incision. ? It is helpful to keep your legs elevated when you are sitting or lie down and elevate your legs on pillows. AWARENESS OF HEART BEATING ? You may feel your heart is beating stronger or that your heart is beating in your neck and ears. DON'T WORRY - this is common especially at bedtime. VIDEO ? This is a video link to watch about discharge. Type into computer and you will be able to watch them. [email or web address] [email or web address] CALL YOUR SURGEON IF YOU HAVE: ? Rapid heart rate or fluttering in your chest ? Fever over 101 F. ? Weight gain or loss of 3 pounds overnight or 5 pounds in one week ? Persistent nausea or vomiting ? ANY NEW STERNAL DRAINAGE ? Excessive LEG drainage or very red incision ? Increasing shortness of breath ? Pain unrelieved by prescribed medication OFFICE VISITS ? BRING YOUR MEDICATION LIST and medications even over the counter medications to all your follow up appointments. ? You should have a follow up appointment in the office in about 1 month after discharge from the hospital. Office Location: [address] [place] [address] [address] [place] [address] ? You may call the office to make an appointment, if you don't have an appointment. ? Bring any questions you have so they may be addressed. ? You should have a follow up appointment with your primary care doctor 7-10 days from discharge, please call and make one if you do not have one. ? You should have a follow up appointment with your Rn Acute Care 2-3 weeks from discharge, please call and make one if you do not have one. ? Cardiac Rehab will set up a follow up time for you to begin your rehabilitation program. EMERGENCIES ? You should either call 911 or go to the Emergency Room to be evaluated if you need seen immediately. ? Sudden, severe shortness of breath go to the Emergency Room. If you have questions regarding these instructions, please call our office . We have an answering service 24 hours a day to get your calls to the road oiling truck driver Physician, but we are often in surgery and it takes us awhile to get back to you. The following attachments cannot be sent through Care Everywhere.Diabetes: Type 2 (Emirati)insulin glargine (Emirati)Diabetes: Insulin Pens: General Info (Emirati)Diabetes: Counting Carbohydrates: Video (Emirati)Diabetes: Carb Counting and Eating Well: General Info (Emirati)documented in this encounter [employer] Phone: 09-28-2021 Hospital Discharge instructions Taryn Fam RN - 09/28/2021 2:40 PM EDT Verbally reviewed discharge instructions for care and follow up. Previous print out of these instructions were given with prior treatment.Patient verbalized understanding of these instructions. documented in this encounter [facility] [employer] Phone: 09-24-2021 Hospital Discharge instructions Jocelyn Miranda RN - 09/24/2021 4:26 PM EDT Outpatient Discharge Instructions for IV Therapy [address] [place] [address] You are advised to carry out the following instructions: Diet: As prescribed by your physician. Activity: As prescribed by your physician. Saline Lock: Notify your Physician if your previous IV site becomes,red,sore,swollen,painful, have drainage,or you develop a fever. Other: If you develop hives,rash,itching or trouble breathing, go to the nearest Emergency Room. These could be signs of a allergic reaction to the medication. Keep the IV site covered with a bandage. Keep it clean and dry until healed. Follow up appointment: ANY PROBLEMS OR CONCERNS NOTIFY YOUR PHYSICIAN OR GO TO THE NEAREST EMERGENCY ROOM. documented in this encounter [facility] [employer] Phone: 09-23-2021 Hospital Discharge instructions Rody Fowler RN - 09/23/2021 4:19 PM EDT Verbally reviewed discharge instructions for care and follow up. Previous print out of these instructions were given with prior treatment.Patient verbalized understanding of these instructions. documented in this encounter [facility] [employer] Phone: 09-22-2021 Hospital Discharge instructions Rody Fowler RN - 09/22/2021 4:07 PM EDT Verbally reviewed discharge instructions for care and follow up. Previous print out of these instructions were given with prior treatment.Patient verbalized understanding of these instructions. [facility]: 09-21-[facility] Hospital Discharge instructions Mayra Caceres RN - 09/21/2021 4:26 PM EDT Verbally reviewed discharge instructions for care and follow up. Previous print out of these instructions were given with prior treatment.Patient verbalized understanding of these instructions. [facility]: 09-17-[facility]21 Hospital Discharge instructions Taryn Fam RN - 09/17/2021 5:17 PM EDT Verbally reviewed discharge instructions for care and follow up. Previous print out of these instructions were given with prior treatment.Patient verbalized understanding of these instructions. [facility]: 09-15-2021 Hospital Discharge instructions Taryn Fam RN - 09/15/2021 Verbally reviewed discharge instructions for care and follow up. Previous print out of these instructions were given with prior treatment.Patient verbalized understanding of these instructions. [facility]: 09-14-2021 Hospital Discharge instructions Taryn Fam RN - 09/14/2021 Outpatient Discharge Instructions for IV Therapy [address] [address] You are advised to carry out the following instructions: Diet: As prescribed by your physician. Activity: As prescribed by your physician. Saline Lock: Notify your Physician if your previous IV site becomes,red,sore,swollen,painful, have drainage,or you develop a fever. Other: If you develop hives,rash,itching or trouble breathing, go to the nearest Emergency Room. These could be signs of a allergic reaction to the medication. Keep the IV site covered with a bandage. Keep it clean and dry until healed. Follow up appointment: ANY PROBLEMS OR CONCERNS NOTIFY YOUR PHYSICIAN OR GO TO THE NEAREST EMERGENCY ROOM. documented in this encounter [facility] [employer] Phone: 09-12-2021 History of Present illness Narrative Images from the original note were not included. [facility] Progress Note Elias Walker Date: 09/12/2021 LOS: 14 Reason for F/U : Febrile illness Impression : 1. Acute hypoxic respiratory failure Extubated 09/06/2021 2. Methicillin-resistant Staph aureus pneumonia 3. Group C streptococcal sepsis 1 of 2 sets (08/30/2021) group C streptococcal sepsis which is typically associated with skin infections Repeat blood cultures 08/31/2021 are negative 4. Hypertensive emergency resolved 5. Pericardial effusion status post pericardiocentesis with 35 to 40 cc of fluid drained 08/29/2021 CESAR done 09/02/2021 without any vegetations 6. Rhinovirus/enteroviral infection 7. Pulmonary edema 8. Intermittent fevers - unclear etiology 9. Multiple punctate acute infarcts multivessel distribution suggesting septic embolic phenomena unclear etiology At this point in time the source of the embolic disease is not clear given he only had 1 out of 2 sets of blood cultures positive and echocardiogram did not show any stigmata to suggest endocarditis. 10. Obesity with obstructive sleep apnea 11. Acute kidney injury 12. Hypercalcemia Recommendations: The patient initially was on cefepime and vancomycin 08/30-->09/02 Switched to ceftaroline 09/03/2021 due to concerns for OZZIE The patient has had 7 days of antibiotics to cover the MRSA in the sputum and ceftaroline was stopped 09/06/2021 Continue Rocephin through 09/28/2021 to complete 28 days of IV antibiotic treatment for the streptococcal septicemia with embolic phenomena Patient will be going to the [facility] during the week and may have to return to [facility] infusion center during the weekends, if ER at [facility] can not provide the treatment during the weekends Clinically the patient continues to make good recovery as his mentation continues to improve daily. Plans are in progress for potential discharge but insurance coverage remains the issue. Office f/up in [address] Henao for infection. Please call [phone] for appointment Infection Control Recommendations: Walker precautions Discharge Planning: Estimated Length of IV antimicrobials: 09/28/2021 Patient will need Midline Catheter Insertion/ PICC line Insertion: No Patient will need: Home IV , Infusion Center, SNF, LTAC: Undetermined Patient willneed outpatient wound care: No Medical Decision making / Summary of Stay: Elias Walker is a 36 y.o.-year-old male who was initially admitted on 08/29/2021. INITIAL HISTORY: Patient is currently intubated and the history is obtained from his girlfriend who is sitting at bedside and from reviewing the chart. Elias has no insurance and does not typically follow with physicians and his girlfriend reports that the only medication that he takes is a Zyrtec for some seasonal allergies. She also reports that he does typically get recurrent cellulitis in his left lower extremity, and that he recently had a viral illness about 2 weeks ago which she also contracted and reports having some rhinorrhea and headaches. She also reports that about a week ago he had a soft tissue abscess in his right hand which he was able to express some purulence out of The patient is obese and there is concern for obstructive sleep apnea He was also recently diagnosed with hypertension started on Lopressor. The patient presented to the emergency department complaining of shortness of breath and work-up in the seem to suggest CHF and a CT and ultrasound showed possible RA collapse with pericardial effusion at an outside facility suggested tamponade The patient was transferred here for further evaluation due to the concerns for tamponade and in the ED was intubated for airway protection and noted to be hypertensive started on nitroglycerin drip He has since been seen by cardiology and an echocardiogram showed moderate pericardial effusion and technically challenging evaluation there was no evidence of tamponade noted. 35 to 40 cc of fluid drained at pericardiocentesis in the emergency department. The patient is being treated for pulmonary edema and during the hospital stay he has been noted to have had fevers with a T-max of 101.3 degrees and was started on empiric antimicrobial therapy and I was asked to evaluate and help with antibiotic choice. The patient did undergo a CESAR that did not show any evidence of valvular heart disease/endocarditis The patient did have a new finding of bilateral Babinski's by the neurology service on 09/04/2021 had MRI of the brain done that showed multi vessel punctate acute infarcts There is a C6-C7 paracentral disc protrusion with some mild stenosis The patient was extubated 09/06/2021 MRA imaging of the head done on 09/08/21 without any significant findings. The nuclear medical scan of the parathyroids without any significant findings either done looking for a adenoma given the hypercalcemia The patient was seen by the neurology service and there was low suspicion for any underlying autoimmune illness or vasculitis. He just does not have enough symptoms or signs to suggest that. Moreover, his serology is entirely negative. His CRP was elevated on admission at 92 but has gone down to 29 with antibiotics. This is mostly secondary to infection. The strong pulses in the bilateral radial and dorsalis pedis and the normal MRA of his brain and neck stand against large vessel vasculitis such as Takayasu's I doubt any hypercoagulable state. I will, however check his phospholipid antibodies and beta-2 glycoprotein antibodies. Has hypercalcemia with elevated PTH that might be consistent with primary hyperparathyroidism. He might benefit from endocrinology evaluation as an outpatient CURRENT EVALUATION ::09/12/2021 BP (!) 154/95 Pulse 83 Temp 98.7 F (37.1 C) (Oral) Resp 16 Ht 5' 4 (1.626 m) Wt 232 lb 9.4 oz (105.5 kg) SpO2 94% BMI 39.92 kg/m Temperature Range: Temp: 98.7 F (37.1 C) Temp Av.6 F (37 C) Min: 98 F (36.7 C) Max: 100.7 F (38.2 C) Afebrile VS stable Patient feels better No complaints No new issues per RN Does not report any subjective fevers or chills. He is more awake, alert and appropriate. His memory is improving. He is getting ready to go home and complete IV antibiotics through the [facility]fusion [facility] at [facility]. He may need an alternative site during the weekends, such as IV infusion center, if [facility] can not provide that service during the weekends. Office f/up in [address] Henao for infection. Please call [phone] for appointment The patient was seen by the hematology service as there was concern whether the infarcts could be related to a malignant process. The patient had an SPEP sent to rule out multiple myeloma given the hypercalcemia. Review of Systems Constitutional: Negative. Respiratory: Negative. Cardiovascular: Negative. Gastrointestinal: Negative. Genitourinary: Negative. Musculoskeletal: Negative. Allergic/Immunologic: Negative. Psychiatric/Behavioral: Positive for decreased concentration. Physical Examination : Physical Exam Constitutional: Appearance: He is well-developed. He is obese. HENT: Head: Normocephalic and atraumatic. Cardiovascular: Rate and Rhythm: Normal rate. Heart sounds: Normal heart sounds. No friction rub. No gallop. Pulmonary: Effort: Pulmonary effort is normal. Breath sounds: Normal breath sounds. No wheezing. Abdominal: General: Bowel sounds are normal. Palpations: Abdomen is soft. There is no mass. Tenderness: There is no abdominal tenderness. Musculoskeletal: Cervical back: Neck supple. Lymphadenopathy: Cervical: No cervical adenopathy. Skin: General: Skin is warm and dry. Neurological: Mental Status: He is alert. Laboratory data: I have independently reviewed the followinglabs: CBC with Differential: Recent Labs 09/11/21 0546 09/12/21 0636 WBC 8.7 6.9 HGB 12.9* 12.4* HCT 38.5* 38.9* PLT 316 319 LYMPHOPCT 16* 32 MONOPCT 11 10 BMP: Recent Labs 09/10/21 0644 09/11/21 1239 NA 142 137 K 4.0 3.6* CL 106 104 CO2 26 20 BUN 39* 30* CREATININE 1.84* 1.82* Hepatic Function Panel: No results for input(s): PROT, LABALBU, BILIDIR, IBILI, BILITOT, ALKPHOS, ALT, AST in the last 72 hours. Lab Results Component Value Date/Time PROCAL 0.17 08/30/2021 10:34 AM PROCAL 0.12 08/29/2021 08:07 AM Lab Results Component Value Date/Time CRP 29.4 09/08/2021 06:43 AM CRP 92.0 08/30/2021 10:34 AM Lab Results Component Value Date SEDRATE 60 (H) 09/08/2021 No results found for: DDIMER No results found for: FERRITIN No results found for: LDH No results found for: FIBRINOGEN Results in Past 30 Days Result Component Current Result Ref Range Previous Result Ref Range SARS-CoV-2, Rapid Not Detected (09/08/2021) Not Detected Not Detected (08/30/2021) Not Detected Lab Results Component Value Date/Time COVID19 Not Detected 09/08/2021 10:23 AM COVID19 Not Detected 08/30/2021 11:15 AM No results for input(s): VANCOTROUGH in the last 72 hours. Imaging Studies: MRA OF THE HEAD WITHOUT CONTRAST; MRA OF THE NECK WITHOUT CONTRAST 09/08/2021 12:05 pm: Impression Unremarkable MRA head/neck without evidence for significant stenosis. Further evaluation with CTA of the head and neck may be helpful in further characterization. NUCLEAR MEDICINE PARATHYROID SCINTIGRAPHY WITH SPECT 09/08/2021 Impression No convincing evidence of parathyroid adenoma. MRI OF THE CERVICAL SPINE WITHOUT CONTRAST 09/04/2021 12:34 pm Impression 1. No cervical spinal cord lesion is identified. 2. Mild central spinal canal narrowing at C6-C7 where there is a 2 mm right paracentral disc protrusion. 3. The orogastric tube is coiled in the patient's pharynx. This could be reposition for more optimal placement. MRI OF THE BRAIN WITHOUT CONTRAST 09/04/2021 12:34 pm Impression 1. Punctate acute infarcts are noted in the cerebral hemispheres, right cerebral peduncle, and central/left paramidline of the albino. Given the multivessel distribution, these are concerning for embolic infarcts. 2. 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 3. Scattered paranasal sinus disease with bilateral mastoid effusions, likely related to intubation. 4. Small area of blooming artifact associated with an infarct in the posterior right frontal lobe, deep white matter, likely related to sequela of remote hemorrhage. ONE XRAY VIEW OF THE CHEST 09/04/2021 5:51 am Impression Supportive tubing is stable. Mild improvement in bilateral airspace disease, pulmonary edema favored over pneumonia. Small components of pleural effusion are possible. CESAR findings: 09/02/2021 LA: Normal SKIP: No thrombus RA: Normal RV: Normal LV: Normal Estimated LVEF: 50% Aorta: Mild atheromatous disease arch Pericardium: Small pericardial effusion Septum: No intracardiac shunt via color Doppler. Valves: Mitral Valve: Structurally normal. Mild to moderate regurgitation is identified. Aortic Valve: The aortic valve is trileaflet and opens adequately. No regurgitiation is identified. Tricuspid valve: Structurally normal. No regurgitation is identified. Pulmonary valve: Normal. No significant regurgitation No valvular vegetations or thrombus identified. Summary: 1. A CESAR was performed without complications. 2. LVEF 50% 3. No thrombus or valvular vegetation identified 4. No intracardiac shunt via color Doppler. 5. There were no complications encountered. Cardiovascular Diseases Fellow [facility] ONE XRAY VIEW OF THE CHEST 09/02/2021 6:50 am Impression Stable support lines Slight improvement in still moderate diffuse bilateral alveolar infiltrates related to improving edema and or infection with decrease in now small right pleural effusion and moderate left basilar pleuroparenchymal process MRI OF THE ABDOMEN WITHOUT CONTRAST, 09/01/2021 1:48 pm Impression 1. Optimal definitive characterization of renal lesions requires utilization of IV contrast. Bilateral circumscribed renal lesions which would be compatible with simple renal cysts on this unenhanced study Largest in the anteromedial lower pole right kidney 3.5 cm. This is probably what is partially imaged on the recent ultrasound. 2. The appears to be some pelvic ascites as seen on the coronal images. Also of note is some body wall edema, small right pleural effusion and cardiomegaly. Cultures: Culture, Blood 1 [[id number]] Collected: 09/08/21 1000 Order Status: Completed Specimen: Blood Updated: 09/10/21 1041 Specimen Description .BLOOD Special Requests L HAND 10ML Culture NO GROWTH 2 DAYS Culture, Blood 1 [[id number]] Collected: 09/08/21 1004 Order Status: Completed Specimen: Blood Updated: 09/10/21 1040 Specimen Description .BLOOD Special Requests R HAND 10ML Culture NO GROWTH 2 DAYS Culture, Blood 1 [[id number]] Collected: 08/31/21 1515 Order Status: Completed Specimen: Blood Updated: 09/05/21 1553 Specimen Description .BLOOD Culture NO GROWTH 5 DAYS Culture, Blood 1 [[id number]] Collected: 08/31/21 1519 Order Status: Completed Specimen: Blood Updated: 09/05/21 1531 Specimen Description .BLOOD Culture NO GROWTH 5 DAYS Culture, Body Fluid [[id number]] (Abnormal) Collected: 08/29/21 0342 Order Status: Completed Specimen: Body Fluid Updated: 09/04/21 1436 Specimen Description .FLUID .PERICARDIAL FLUID Direct Exam RARE NEUTROPHILS Abnormal NO BACTERIA SEEN Gram stain made from cytocentrifuged specimen. Organisms and cells will be concentrated. Culture NO GROWTH 6 DAYS Culture, Blood 1 [[id number]] Collected: 08/30/21 0953 Order Status: Completed Specimen: Blood Updated: 09/04/21 1024 Specimen Description .BLOOD Special Requests 10ML R ARM Culture NO GROWTH 5 DAYS Culture, Blood 1 [[id number]] (Abnormal) Collected: 08/30/21 1001 Order Status: Completed Specimen: Blood Updated: 08/31/21 2337 Specimen Description .BLOOD Special Requests 20ML R WRIST Culture POSITIVE Blood Culture Abnormal DIRECT GRAM STAIN FROM BOTTLE: GRAM POSITIVE COCCI IN CHAINS Detected: Streptococcus species (not S. agalactiae (Group B), S. pneumoniae, or S. pyogenes (Group A)) Culture Results to Follow Methodology- Polymerase Chain Reaction (PCR) STREPTOCOCCI, BETA HEMOLYTIC GROUP C Abnormal (NOTE) Direct Gram Stain from bottle and Polymerase Chain Reaction (PCR) results called to and read back by: BAUTISTA Greenfield at 0425 on 08/31/21 Culture, Respiratory [[id number]] (Abnormal) Collected: 08/30/21 2341 Order Status: Completed Specimen: Endotracheal Updated: 09/02/21 0828 Specimen Description .ENDOTRACHEAL Direct Exam >10, <25 NEUTROPHILS/LPF < 10 EPITHELIAL CELLS/LPF PREDOMINANT ORGANISM: GRAM POSITIVE COCCI IN CLUSTERS Abnormal MIXED BACTERIAL MORPHOTYPES ALSO PRESENT ON GRAM STAIN. Abnormal Culture METHICILLIN RESISTANT STAPHYLOCOCCUS AUREUS HEAVY GROWTH Abnormal NORMAL RESPIRATORY JAMES LIGHT GROWTH Methicillin-Resistant Staphylococcus aureus (1) Antibiotic Interpretation Microscan Method Status penicillin Resistant >=0.5 BACTERIAL SUSCEPTIBILITY PANEL JULIÁN Final clindamycin Sensitive <=0.25 BACTERIAL SUSCEPTIBILITY PANEL JULIÁN Final erythromycin Sensitive <=0.25 BACTERIAL SUSCEPTIBILITY PANEL JULIÁN Final gentamicin Sensitive <=0.5 BACTERIAL SUSCEPTIBILITY PANEL JULIÁN Final Gentamicin is used only in combination with other active agents that test susceptible. levofloxacin Sensitive <=0.12 BACTERIAL SUSCEPTIBILITY PANEL JULIÁN Final oxacillin Resistant >=4 BACTERIAL SUSCEPTIBILITY PANEL JULIÁN Final tetracycline Sensitive <=1 BACTERIAL SUSCEPTIBILITY PANEL JULIÁN Final trimethoprim-sulfamethoxazole Sensitive <=10 BACTERIAL SUSCEPTIBILITY PANEL JULIÁN Final vancomycin Sensitive 1 BACTERIAL SUSCEPTIBILITY PANEL JULIÁN Final Specimen Collected: 08/30/21 23:41 Last Resulted: 09/02/21 08:28 MRSA DNA Probe, Nasal [[id number]] (Abnormal) Collected: 08/29/21 0813 Order Status: Completed Specimen: Nasal Updated: 08/30/21 1509 Specimen Description .NASAL SWAB MRSA, DNA, Nasal POSITIVE: MRSA DNA detected by nucleic acid amplification. Abnormal Comment: Results should be used as an adjunct to nosocomial control efforts to identify patients needing enhanced precautions. The test is not intended to identify patients with staphylococcal infections. Results should not be used to guide or monitor treatment for MRSA infections. Respiratory Panel, Molecular, with COVID-19 (Restricted: peds pts or suitable admitted adults) [[id number]] (Abnormal) Collected: 08/30/21 1115 Order Status: Completed Specimen: Nasopharyngeal Swab Updated: 08/30/21 1203 Specimen Description .NASOPHARYNGEAL SWAB Adenovirus PCR Not Detected Coronavirus 229E PCR Not Detected Coronavirus HKU1 PCR Not Detected Coronavirus NL63 PCR Not Detected Coronavirus OC43 PCR Not Detected SARS-CoV-2, PCR Not Detected Human Metapneumovirus PCR Not Detected Rhino/Enterovirus PCR DETECTED Abnormal Influenza A by PCR Not Detected Influenza B by PCR Not Detected Parainfluenza 1 PCR Not Detected Parainfluenza 2 PCR Not Detected Parainfluenza 3 PCR Not Detected Parainfluenza 4 PCR Not Detected Resp Syncytial Virus PCR Not Detected Bordetella Parapertussis Not Detected B Pertussis by PCR Not Detected Chlamydia pneumoniae By PCR Not Detected Mycoplasma pneumo by PCR Not Detected Comment: Performed by multiplexed nucleic acid assay. Medications: QUEtiapine 25 mg Oral Nightly carvedilol 12.5 mg Oral BID NIFEdipine 30 mg Oral Daily cefTRIAXone (ROCEPHIN) IV 2,000 mg IntraVENous Q24H [Held by provider] furosemide 40 mg IntraVENous Daily [Held by provider] vitamin D 50,000 Units Per NG tube Weekly heparin (porcine) 5,000 Units SubCUTAneous 3 times per day sodium chloride flush 5-40 mL IntraVENous 2 times per day [facility] Jared Hernandez MD [employer] messaging OFFICE: Thank you for allowing us to participate in the care of this patient. Please call with questions. This note iscreated with the assistance of a speech recognition program. While intending to generate a document that actually reflects the content of the visit, the document can still have some errors including those of syntax andsound a like substitutions which may escape proof reading. In such instances, actual meaning can be extrapolated by contextual diversion. 09/12 1999 received telephone call from patients SO Nicolle, She stated patient DC plan is to go home with home health, PT/OT if needed and family will take patient to an outpatient infusion clinic for IV antibiotics. This was new information to this field underwriter. Reviewed DC wishes with patient. Juan stated he wants to go home. He states he as had antibiotics at an OP infusion centers in the past and is familiar with the process. Juan also stated he does feel like he is confused at times and doesn't completely understand what medical staff are saying to him some of the time. He wants his SO Nicolle contacted with him and be apart of any DC plans in the future. Patients wishes were written out on white board to assist him with his memory. Images from the original note were not included. [facility] Progress Note Elias Walker Date: 09/11/2021 LOS: 13 Reason for F/U : Febrile illness Impression : 1. Acute hypoxic respiratory failure Extubated 09/06/2021 2. Methicillin-resistant Staph aureus pneumonia 3. Group C streptococcal sepsis 1 of 2 sets (08/30/2021) group C streptococcal sepsis which is typically associated with skin infections Repeat blood cultures 08/31/2021 are negative 4. Hypertensive emergency resolved 5. Pericardial effusion status post pericardiocentesis with 35 to 40 cc of fluid drained 08/29/2021 CESAR done 09/02/2021 without any vegetations 6. Rhinovirus/enteroviral infection 7. Pulmonary edema 8. Intermittent fevers - unclear etiology 9. Multiple punctate acute infarcts multivessel distribution suggesting septic embolic phenomena unclear etiology At this point in time the source of the embolic disease is not clear given he only had 1 out of 2 sets of blood cultures positive and echocardiogram did not show any stigmata to suggest endocarditis. 10. Obesity with obstructive sleep apnea 11. Acute kidney injury 12. Hypercalcemia Recommendations: The patient initially was on cefepime and vancomycin 08/30-->09/02 Switched to ceftaroline 09/03/2021 due to concerns for OZZIE The patient has had 7 days of antibiotics to cover the MRSA in the sputum and ceftaroline was stopped 09/06/2021 Continue Rocephin to complete 28 days of antibiotic coverage through 09/28/2021 for the streptococcal sepsis with embolic phenomena Clinically the patient continues to make good recovery as his mentation continues to improve daily. Plans are in progress for potential discharge but insurance coverage remains the issue. Infection Control Recommendations: Walker precautions Discharge Planning: Estimated Length of IV antimicrobials: 09/28/2021 Patient will need Midline Catheter Insertion/ PICC line Insertion: No Patient will need: Home IV , Infusion Center, SNF, LTAC: Undetermined Patient willneed outpatient wound care: No Medical Decision making / Summary of Stay: Elias Walker is a 36 y.o.-year-old male who was initially admitted on 08/29/2021. INITIAL HISTORY: Patient is currently intubated and the history is obtained from his girlfriend who is sitting at bedside and from reviewing the chart. Elias has no insurance and does not typically follow with physicians and his girlfriend reports that the only medication that he takes is a Zyrtec for some seasonal allergies. She also reports that he does typically get recurrent cellulitis in his left lower extremity, and that he recently had a viral illness about 2 weeks ago which she also contracted and reports having some rhinorrhea and headaches. She also reports that about a week ago he had a soft tissue abscess in his right hand which he was able to express some purulence out of The patient is obese and there is concern for obstructive sleep apnea He was also recently diagnosed with hypertension started on Lopressor. The patient presented to the emergency department complaining of shortness of breath and work-up in the seem to suggest CHF and a CT and ultrasound showed possible RA collapse with pericardial effusion at an outside facility suggested tamponade The patient was transferred here for further evaluation due to the concerns for tamponade and in the ED was intubated for airway protection and noted to be hypertensive started on nitroglycerin drip He has since been seen by cardiology and an echocardiogram showed moderate pericardial effusion and technically challenging evaluation there was no evidence of tamponade noted. 35 to 40 cc of fluid drained at pericardiocentesis in the emergency department. The patient is being treated for pulmonary edema and during the hospital stay he has been noted to have had fevers with a T-max of 101.3 degrees and was started on empiric antimicrobial therapy and I was asked to evaluate and help with antibiotic choice. The patient did undergo a CESAR that did not show any evidence of valvular heart disease/endocarditis The patient did have a new finding of bilateral Babinski's by the neurology service on 09/04/2021 had MRI of the brain done that showed multi vessel punctate acute infarcts There is a C6-C7 paracentral disc protrusion with some mild stenosis The patient was extubated 09/06/2021 MRA imaging of the head done on 09/08/21 without any significant findings. The nuclear medical scan of the parathyroids without any significant findings either done looking for a adenoma given the hypercalcemia The patient was seen by the neurology service and there was low suspicion for any underlying autoimmune illness or vasculitis. He just does not have enough symptoms or signs to suggest that. Moreover, his serology is entirely negative. His CRP was elevated on admission at 92 but has gone down to 29 with antibiotics. This is mostly secondary to infection. The strong pulses in the bilateral radial and dorsalis pedis and the normal MRA of his brain and neck stand against large vessel vasculitis such as Takayasu's I doubt any hypercoagulable state. I will, however check his phospholipid antibodies and beta-2 glycoprotein antibodies. Has hypercalcemia with elevated PTH that might be consistent with primary hyperparathyroidism. He might benefit from endocrinology evaluation as an outpatient CURRENT EVALUATION ::09/11/2021 BP 126/68 Pulse 91 Temp (!) 100.7 F (38.2 C) (Oral) Resp 16 Ht 5' 4 (1.626 m) Wt 232 lb 9.4 oz (105.5 kg) SpO2 98% BMI 39.92 kg/m Temperature Range: Temp: (!) 100.7 F (38.2 C) Temp Av.2 F (37.3 C) Min: 98.3 F (36.8 C) Max: 100.7 F (38.2 C) Afebrile VS stable Patient feels better No complaints No new issues per RN Does not report any subjective fevers or chills. He is more awake, alert and seems to be more appropriate. His memory is improving. The patient was seen by the hematology service as there was concern whether the infarcts could be related to a malignant process. The patient had an SPEP sent to rule out multiple myeloma given the hypercalcemia. Review of Systems Constitutional: Negative. Respiratory: Negative. Cardiovascular: Negative. Gastrointestinal: Negative. Genitourinary: Negative. Musculoskeletal: Negative. Allergic/Immunologic: Negative. Psychiatric/Behavioral: Positive for decreased concentration. Physical Examination : Physical Exam Constitutional: Appearance: He is well-developed. He is obese. HENT: Head: Normocephalic and atraumatic. Cardiovascular: Rate and Rhythm: Normal rate. Heart sounds: Normal heart sounds. No friction rub. No gallop. Pulmonary: Effort: Pulmonary effort is normal. Breath sounds: Normal breath sounds. No wheezing. Abdominal: General: Bowel sounds are normal. Palpations: Abdomen is soft. There is no mass. Tenderness: There is no abdominal tenderness. Musculoskeletal: Cervical back: Neck supple. Lymphadenopathy: Cervical: No cervical adenopathy. Skin: General: Skin is warm and dry. Neurological: Mental Status: He is alert. Laboratory data: I have independently reviewed the followinglabs: CBC with Differential: Recent Labs 09/10/21 0644 09/11/21 0546 WBC 8.6 8.7 HGB 13.3 12.9* HCT 41.5 38.5* PLT 370 316 LYMPHOPCT 24 16* MONOPCT 8 11 BMP: Recent Labs 09/10/21 0644 09/11/21 1239 NA 142 137 K 4.0 3.6* CL 106 104 CO2 26 20 BUN 39* 30* CREATININE 1.84* 1.82* Hepatic Function Panel: No results for input(s): PROT, LABALBU, BILIDIR, IBILI, BILITOT, ALKPHOS, ALT, AST in the last 72 hours. Lab Results Component Value Date/Time PROCAL 0.17 08/30/2021 10:34 AM PROCAL 0.12 08/29/2021 08:07 AM Lab Results Component Value Date/Time CRP 29.4 09/08/2021 06:43 AM CRP 92.0 08/30/2021 10:34 AM Lab Results Component Value Date SEDRATE 60 (H) 09/08/2021 No results found for: DDIMER No results found for: FERRITIN No results found for: LDH No results found for: FIBRINOGEN Results in Past 30 Days Result Component Current Result Ref Range Previous Result Ref Range SARS-CoV-2, Rapid Not Detected (09/08/2021) Not Detected Not Detected (08/30/2021) Not Detected Lab Results Component Value Date/Time COVID19 Not Detected 09/08/2021 10:23 AM COVID19 Not Detected 08/30/2021 11:15 AM No results for input(s): VANCOTROUGH in the last 72 hours. Imaging Studies: MRA OF THE HEAD WITHOUT CONTRAST; MRA OF THE NECK WITHOUT CONTRAST 09/08/2021 12:05 pm: Impression Unremarkable MRA head/neck without evidence for significant stenosis. Further evaluation with CTA of the head and neck may be helpful in further characterization. NUCLEAR MEDICINE PARATHYROID SCINTIGRAPHY WITH SPECT 09/08/2021 Impression No convincing evidence of parathyroid adenoma. MRI OF THE CERVICAL SPINE WITHOUT CONTRAST 09/04/2021 12:34 pm Impression 1. No cervical spinal cord lesion is identified. 2. Mild central spinal canal narrowing at C6-C7 where there is a 2 mm right paracentral disc protrusion. 3. The orogastric tube is coiled in the patient's pharynx. This could be reposition for more optimal placement. MRI OF THE BRAIN WITHOUT CONTRAST 09/04/2021 12:34 pm Impression 1. Punctate acute infarcts are noted in the cerebral hemispheres, right cerebral peduncle, and central/left paramidline of the albino. Given the multivessel distribution, these are concerning for embolic infarcts. 2. 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 3. Scattered paranasal sinus disease with bilateral mastoid effusions, likely related to intubation. 4. Small area of blooming artifact associated with an infarct in the posterior right frontal lobe, deep white matter, likely related to sequela of remote hemorrhage. ONE XRAY VIEW OF THE CHEST 09/04/2021 5:51 am Impression Supportive tubing is stable. Mild improvement in bilateral airspace disease, pulmonary edema favored over pneumonia. Small components of pleural effusion are possible. CESAR findings: 09/02/2021 LA: Normal SKIP: No thrombus RA: Normal RV: Normal LV: Normal Estimated LVEF: 50% Aorta: Mild atheromatous disease arch Pericardium: Small pericardial effusion Septum: No intracardiac shunt via color Doppler. Valves: Mitral Valve: Structurally normal. Mild to moderate regurgitation is identified. Aortic Valve: The aortic valve is trileaflet and opens adequately. No regurgitiation is identified. Tricuspid valve: Structurally normal. No regurgitation is identified. Pulmonary valve: Normal. No significant regurgitation No valvular vegetations or thrombus identified. Summary: 1. A CESAR was performed without complications. 2. LVEF 50% 3. No thrombus or valvular vegetation identified 4. No intracardiac shunt via color Doppler. 5. There were no complications encountered. Cardiovascular Diseases Fellow [facility] ONE XRAY VIEW OF THE CHEST 09/02/2021 6:50 am Impression Stable support lines Slight improvement in still moderate diffuse bilateral alveolar infiltrates related to improving edema and or infection with decrease in now small right pleural effusion and moderate left basilar pleuroparenchymal process MRI OF THE ABDOMEN WITHOUT CONTRAST, 09/01/2021 1:48 pm Impression 1. Optimal definitive characterization of renal lesions requires utilization of IV contrast. Bilateral circumscribed renal lesions which would be compatible with simple renal cysts on this unenhanced study Largest in the anteromedial lower pole right kidney 3.5 cm. This is probably what is partially imaged on the recent ultrasound. 2. The appears to be some pelvic ascites as seen on the coronal images. Also of note is some body wall edema, small right pleural effusion and cardiomegaly. Cultures: Culture, Blood 1 [[id number]] Collected: 09/08/21 1000 Order Status: Completed Specimen: Blood Updated: 09/10/21 1041 Specimen Description .BLOOD Special Requests L HAND 10ML Culture NO GROWTH 2 DAYS Culture, Blood 1 [[id number]] Collected: 09/08/21 1004 Order Status: Completed Specimen: Blood Updated: 09/10/21 1040 Specimen Description .BLOOD Special Requests R HAND 10ML Culture NO GROWTH 2 DAYS Culture, Blood 1 [[id number]] Collected: 08/31/21 1515 Order Status: Completed Specimen: Blood Updated: 09/05/21 1553 Specimen Description .BLOOD Culture NO GROWTH 5 DAYS Culture, Blood 1 [[id number]] Collected: 08/31/21 1519 Order Status: Completed Specimen: Blood Updated: 09/05/21 1531 Specimen Description .BLOOD Culture NO GROWTH 5 DAYS Culture, Body Fluid [[id number]] (Abnormal) Collected: 08/29/21 0342 Order Status: Completed Specimen: Body Fluid Updated: 09/04/21 1436 Specimen Description .FLUID .PERICARDIAL FLUID Direct Exam RARE NEUTROPHILS Abnormal NO BACTERIA SEEN Gram stain made from cytocentrifuged specimen. Organisms and cells will be concentrated. Culture NO GROWTH 6 DAYS Culture, Blood 1 [[id number]] Collected: 08/30/21 0953 Order Status: Completed Specimen: Blood Updated: 09/04/21 1024 Specimen Description .BLOOD Special Requests 10ML R ARM Culture NO GROWTH 5 DAYS Culture, Blood 1 [[id number]] (Abnormal) Collected: 08/30/21 1001 Order Status: Completed Specimen: Blood Updated: 08/31/21 2337 Specimen Description .BLOOD Special Requests 20ML R WRIST Culture POSITIVE Blood Culture Abnormal DIRECT GRAM STAIN FROM BOTTLE: GRAM POSITIVE COCCI IN CHAINS Detected: Streptococcus species (not S. agalactiae (Group B), S. pneumoniae, or S. pyogenes (Group A)) Culture Results to Follow Methodology- Polymerase Chain Reaction (PCR) STREPTOCOCCI, BETA HEMOLYTIC GROUP C Abnormal (NOTE) Direct Gram Stain from bottle and Polymerase Chain Reaction (PCR) results called to and read back by: BAUTISTA Greenfield at 0425 on 08/31/21 Culture, Respiratory [[id number]] (Abnormal) Collected: 08/30/21 2341 Order Status: Completed Specimen: Endotracheal Updated: 09/02/21 0828 Specimen Description .ENDOTRACHEAL Direct Exam >10, <25 NEUTROPHILS/LPF < 10 EPITHELIAL CELLS/LPF PREDOMINANT ORGANISM: GRAM POSITIVE COCCI IN CLUSTERS Abnormal MIXED BACTERIAL MORPHOTYPES ALSO PRESENT ON GRAM STAIN. Abnormal Culture METHICILLIN RESISTANT STAPHYLOCOCCUS AUREUS HEAVY GROWTH Abnormal NORMAL RESPIRATORY JAMES LIGHT GROWTH Methicillin-Resistant Staphylococcus aureus (1) Antibiotic Interpretation Microscan Method Status penicillin Resistant >=0.5 BACTERIAL SUSCEPTIBILITY PANEL JULIÁN Final clindamycin Sensitive <=0.25 BACTERIAL SUSCEPTIBILITY PANEL JULIÁN Final erythromycin Sensitive <=0.25 BACTERIAL SUSCEPTIBILITY PANEL JULIÁN Final gentamicin Sensitive <=0.5 BACTERIAL SUSCEPTIBILITY PANEL JULIÁN Final Gentamicin is used only in combination with other active agents that test susceptible. levofloxacin Sensitive <=0.12 BACTERIAL SUSCEPTIBILITY PANEL JULIÁN Final oxacillin Resistant >=4 BACTERIAL SUSCEPTIBILITY PANEL JULIÁN Final tetracycline Sensitive <=1 BACTERIAL SUSCEPTIBILITY PANEL JULIÁN Final trimethoprim-sulfamethoxazole Sensitive <=10 BACTERIAL SUSCEPTIBILITY PANEL JULIÁN Final vancomycin Sensitive 1 BACTERIAL SUSCEPTIBILITY PANEL JULIÁN Final Specimen Collected: 08/30/21 23:41 Last Resulted: 09/02/21 08:28 MRSA DNA Probe, Nasal [[id number]] (Abnormal) Collected: 08/29/21 0813 Order Status: Completed Specimen: Nasal Updated: 08/30/21 1509 Specimen Description .NASAL SWAB MRSA, DNA, Nasal POSITIVE: MRSA DNA detected by nucleic acid amplification. Abnormal Comment: Results should be used as an adjunct to nosocomial control efforts to identify patients needing enhanced precautions. The test is not intended to identify patients with staphylococcal infections. Results should not be used to guide or monitor treatment for MRSA infections. Respiratory Panel, Molecular, with COVID-19 (Restricted: peds pts or suitable admitted adults) [[id number]] (Abnormal) Collected: 08/30/21 1115 Order Status: Completed Specimen: Nasopharyngeal Swab Updated: 08/30/21 1203 Specimen Description .NASOPHARYNGEAL SWAB Adenovirus PCR Not Detected Coronavirus 229E PCR Not Detected Coronavirus HKU1 PCR Not Detected Coronavirus NL63 PCR Not Detected Coronavirus OC43 PCR Not Detected SARS-CoV-2, PCR Not Detected Human Metapneumovirus PCR Not Detected Rhino/Enterovirus PCR DETECTED Abnormal Influenza A by PCR Not Detected Influenza B by PCR Not Detected Parainfluenza 1 PCR Not Detected Parainfluenza 2 PCR Not Detected Parainfluenza 3 PCR Not Detected Parainfluenza 4 PCR Not Detected Resp Syncytial Virus PCR Not Detected Bordetella Parapertussis Not Detected B Pertussis by PCR Not Detected Chlamydia pneumoniae By PCR Not Detected Mycoplasma pneumo by PCR Not Detected Comment: Performed by multiplexed nucleic acid assay. Medications: QUEtiapine 25 mg Oral Nightly carvedilol 12.5 mg Oral BID NIFEdipine 30 mg Oral Daily cefTRIAXone (ROCEPHIN) IV 2,000 mg IntraVENous Q24H [Held by provider] furosemide 40 mg IntraVENous Daily [Held by provider] vitamin D 50,000 Units Per NG tube Weekly heparin (porcine) 5,000 Units SubCUTAneous 3 times per day sodium chloride flush 5-40 mL IntraVENous 2 times per day [facility] Jared Hernandez MD Jiff messaging OFFICE: Thank you for allowing us to participate in the care of this patient. Please call with questions. This note iscreated with the assistance of a speech recognition program. While intending to generate a document that actually reflects the content of the visit, the document can still have some errors including those of syntax andsound a like substitutions which may escape proof reading. In such instances, actual meaning can be extrapolated by contextual diversion. Images from the original note were not included. Today's Date: 09/11/2021 Patient Name: Elias Walker Date of admission: 08/29/2021 1:02 AM Patient's age: 36 y.o., 1985 Admission Dx: Acute pulmonary edema (HCC) [J81.0] Cardiac tamponade [I31.4] Acute respiratory failure, unspecified whether with hypoxia or hypercapnia (HCC) [J96.00] Pericardial effusion with cardiac tamponade [I31.3, I31.4] Acute heart failure, unspecified heart failure type (HCC) [I50.9] Acute respiratory failure with hypoxia (HCC) [J96.01] Reason for Consult: management recommendations Requesting Physician: Luis E Rodriguez MD CHIEF COMPLAINT: hypercalcemia History Obtained From: patient, electronic medical record Interval history: Patient seen and examined Labs and vitals reviewed Patient resting comfortably Denies new complaints or interval event. Discussed with patient's at bedside HISTORY OF PRESENT ILLNESS: The patient is a 36 y.o. male who is admitted to the hospital as a transfer from [facility] for hypertension, shortness of breath. He was found to have pericardial effusion s/p pericardiocentesis with 37 ml of dark fluid removed. subsequently developed respiratory failure and was intubated. MRI showed multifocal infarcts- however CESAR was negative and EF was 50%. He was found to have hypercalcemia and elevated PTH. Was administered calcitonin and a parathyroid nuclear scan was ordered which was unremarkable. Currently on ceftriaxone until 09/28, extubated on 09/06 and continues to have low grade fever. Hematology was consulted for hypercalcemia, currently Ca 10.4, PTH was 141.5. Past Medical History: has a past medical history of Priapism, unspecified. Past Surgical History: has a past surgical history that includes Penis surgery (01/31/2016). Medications: Reviewed in [employer] Allergies: Food and Tomato Social History: reports that he has been smoking. He has a 15.00 pack-year smoking history. He does not have any smokeless tobacco history on file. He reports current alcohol use. He reports that he does not use drugs. Family History: family history is not on file. REVIEW OF SYSTEMS: Constitutional: No fever or chills. No night sweats, no weight loss Eyes: No eye discharge, double vision, or eye pain HEENT: negative for sore mouth, sore throat, hoarseness and voice change Respiratory: negative for cough , sputum, dyspnea, wheezing, hemoptysis, chest pain Cardiovascular: negative for chest pain, dyspnea, palpitations, orthopnea, PND Gastrointestinal: negative for nausea, vomiting, diarrhea, constipation, abdominal pain, Dysphagia, hematemesis and hematochezia Genitourinary: negative for frequency, dysuria, nocturia, urinary incontinence, and hematuria Integument: negative for rash, skin lesions, bruises. Hematologic/Lymphatic: negative for easy bruising, bleeding, lymphadenopathy, or petechiae Endocrine: negative for heat or cold intolerance,weight changes, change in bowel habits and hair loss Musculoskeletal: negative for myalgias, arthralgias, pain, joint swelling,and bone pain Neurological: negative for headaches, dizziness, seizures, weakness, numbness PHYSICAL EXAM: BP 126/68 Pulse 91 Temp (!) 100.7 F (38.2 C) (Oral) Resp 16 Ht 5' 4 (1.626 m) Wt 232 lb 9.4 oz (105.5 kg) SpO2 98% BMI 39.92 kg/m Temp (24hrs), Av F (37.2 C), Min:97.8 F (36.6 C), Max:100.7 F (38.2 C) General appearance - well appearing, no in pain or distress Mental status - alert and cooperative Eyes - pupils equal and reactive, extraocular eye movements intact Ears - bilateral TM's and external ear canals normal Mouth - mucous membranes moist, pharynx normal without lesions Neck - supple, no significant adenopathy Lymphatics - no palpable lymphadenopathy, no hepatosplenomegaly Chest - clear to auscultation, no wheezes, rales or rhonchi, symmetric air entry Heart - normal rate, regular rhythm, normal S1, S2, no murmurs Abdomen - soft, nontender, nondistended, no masses or organomegaly Neurological - alert, oriented, normal speech, no focal findings or movement disorder noted Musculoskeletal - no joint tenderness, deformity or swelling Extremities - peripheral pulses normal, no pedal edema, no clubbing or cyanosis Skin - normal coloration and turgor, no rashes, no suspicious skin lesions noted , DATA: Labs: CBC: Recent Labs 09/10/21 0644 09/11/21 0546 WBC 8.6 8.7 HGB 13.3 12.9* HCT 41.5 38.5* PLT 370 316 BMP: Recent Labs 09/09/21 1429 09/10/21 0644 NA 139 142 K 3.6* 4.0 CO2 26 26 BUN 41* 39* CREATININE 2.12* 1.84* LABGLOM 35* 42* GLUCOSE 110* 83 PT/INR: No results for input(s): PROTIME, INR in the last 72 hours. IMAGING DATA: CT CHEST WO CONTRAST Final Result 1. Small to moderate pericardial effusion. No lobar airspace consolidation. No suspicious pulmonary nodule or mass. 2. Coronary artery disease. 3. Heterogeneous enlargement of the left thyroid lobe with 1.7 cm thyroid lobe nodule. Please see recommendations provided below. MRA HEAD WO CONTRAST Final Result Unremarkable MRA head/neck without evidence for significant stenosis. Further evaluation with CTA of the head and neck may be helpful in further characterization. MRA NECK WO CONTRAST Final Result Unremarkable MRA head/neck without evidence for significant stenosis. Further evaluation with CTA of the head and neck may be helpful in further characterization. NM PARATHYORID W SPECT Final Result No convincing evidence of parathyroid adenoma. MRI BRAIN WO CONTRAST Final Result 1. Punctate acute infarcts are noted in the cerebral hemispheres, right cerebral peduncle, and central/left paramidline of the albino. Given the multivessel distribution, these are concerning for embolic infarcts. 2. 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 3. Scattered paranasal sinus disease with bilateral mastoid effusions, likely related to intubation. 4. Small area of blooming artifact associated with an infarct in the posterior deep white matter of the right frontal lobe is likely related to sequela of remote hemorrhage. MRI CERVICAL SPINE WO CONTRAST Final Result 1. No cervical spinal cord lesion is identified. 2. Mild central spinal canal narrowing at C6-C7 where there is a 2 mm right paracentral disc protrusion. 3. The orogastric tube is coiled in the patient's pharynx. This could be repositioned for more optimal placement. XR CHEST PORTABLE Final Result Supportive tubing is stable. Mild improvement in bilateral airspace disease, pulmonary edema favored over pneumonia. Small components of pleural effusion are possible. XR ABDOMEN FOR NG/OG/NE TUBE PLACEMENT Final Result Enteric tube with the tip in the stomach. The side port may be at the GE junction. Recommend advancement by 3 cm XR CHEST PORTABLE Final Result Stable support lines Slight improvement in still moderate diffuse bilateral alveolar infiltrates related to improving edema and or infection with decrease in now small right pleural effusion and moderate left basilar pleuroparenchymal process MRI ABDOMEN WO CONTRAST Final Result 1. Optimal definitive characterization of renal lesions requires utilization of IV contrast. Bilateral circumscribed renal lesions which would be compatible with simple renal cysts on this unenhanced study Largest in the anteromedial lower pole right kidney 3.5 cm. This is probably what is partially imaged on the recent ultrasound. 2. The appears to be some pelvic ascites as seen on the coronal images. Also of note is some body wall edema, small right pleural effusion and cardiomegaly. XR CHEST PORTABLE Final Result Stable support lines Slight progression in now moderate to marked asymmetric alveolar/interstitial infiltrates related to edema and/or infection US RETROPERITONEAL LIMITED Final Result Significantly limited sonographic assessment of the kidneys due to poor sonographic window. No gross hydronephrosis. Possible 6.8 cm lesion in the mid right kidney, overall not well assessed on this exam. Consider dedicated contrast-enhanced abdominal CT at a clinically appropriate time. VL RENAL ARTERIAL DUPLEX COMPLETE Final Result XR CHEST PORTABLE Final Result Cardiomegaly with bibasilar effusions and bilateral congestion. Support tubes as described above. POC US ECH[employer]IO [employer] Final Result XR CHEST PORTABLE Final Result 1. Endotracheal tube terminates in appropriate position above the rm. 2. Enteric tube terminates at the level of the body of the stomach. 3. Interval worsening of pulmonary edema. XR ABDOMEN FOR NG/OG/NE TUBE PLACEMENT Final Result 1. Endotracheal tube terminates in appropriate position above the rm. 2. Enteric tube terminates at the level of the body of the stomach. 3. Interval worsening of pulmonary edema. XR CHEST PORTABLE Final Result Cardiomegaly with mild interstitial edema. VL RENAL ARTERIAL DUPLEX COMPLETE (Results Pending) XR BONE SURVEY COMPLETE (Results Pending) Primary Problem Cerebral septic emboli (HCC) Active Hospital Problems Diagnosis Date Noted Cerebrovascular accident (CVA) (HCC) [I63.9] Priority: Medium Cerebral embolism [I66.9] Priority: Medium Cerebral septic emboli (HCC) [I76, I66.9] Priority: Medium Acute kidney injury (HCC) [N17.9] Priority: Medium Hypercalcemia [E83.52] Priority: Medium Delirium [R41.0] Priority: Medium Rhinovirus infection [B34.8] Priority: Medium Fever [R50.9] Priority: Medium Sepsis due to Streptococcus species without acute organ dysfunction (HCC) [A40.9] Priority: Medium Staphylococcus aureus pneumonia (HCC) [J15.211] Priority: Medium Acute heart failure (HCC) [I50.9] Priority: Medium Acute pulmonary edema (HCC) [J81.0] Priority: Medium Pericardial effusion with cardiac tamponade [I31.3, I31.4] Priority: Medium Pericardial effusion [I31.3] Priority: Medium Pleural effusion [J90] Priority: Medium Cardiac tamponade [I31.4] 08/29/2021 Priority: Medium Acute respiratory failure with hypoxia (HCC) [J96.01] 08/29/2021 Priority: Medium IMPRESSION: 1. Pericardial effusion 2. Multifocal infarcts 3. Hypercalcemia- rule out malignancy 4. Hyperparathyroidism 5. OZZIE 6. HTN RECOMMENDATIONS: 1. Follow up on biopsy results for pericardial fluid 2. Follow-up on results of skeletal survey 3. Work-up negative so far for plasma cell dyscrasia 4. Work-up negative so far for malignancy Outpatient evaluation by endocrinology Physical Therapy Facility/Department: [address] [place] Physical Therapy Progress Note Name: Elias Walker : 1985 Date of Service: 09/11/2021 Discharge Recommendations: Patient would benefit from continued therapy after discharge Patient Diagnosis(es): The primary encounter diagnosis was Acute heart failure, unspecified heart failure type (HCC). Diagnoses of Acute pulmonary edema (HCC), Pericardial effusion with cardiac tamponade, and Acute respiratory failure, unspecified whether with hypoxia or hypercapnia (HCC) were also pertinent to this visit. Past Medical History: has a past medical history of Priapism, unspecified. Past Surgical History: has a past surgical history that includes Penis surgery (01/31/2016). Assessment Assessment: [facility]t reports of fatigue from just finished having imaging. pt barry ther ex in supine/seated EOB. pt requires increased time as he appears easily distracted & requires constant v.c's for follow through. Requires PT Follow-Up: Yes Activity Tolerance Activity Tolerance: Patient tolerated treatment well Activity Tolerance Comments: pt requires increased juan ed/t being easily distracted Plan Plan Plan: 6-7 times per week Current Treatment Recommendations: Strengthening,Neuromuscular re-education,Safety education & training,Patient/Caregiver education & training,Endurance training,Balance training,Functional mobility training,Transfer training,ADL/Self-care training,IADL training,Gait training,Stair training,Home exercise program,Equipment evaluation, education, & procurement,Therapeutic activities Safety Devices Type of Devices: Call light within reach,Left in chair,Bed alarm in place Restraints Restraints Initially in Place: No Restrictions Restrictions/Precautions Restrictions/Precautions: Fall Risk Required Braces or Orthoses?: No Position Activity Restriction Other position/activity restrictions: 08/29 intubated, 09/06 extubated Subjective General Chart Reviewed: Yes Response To Previous Treatment: Patient with no complaints from previous session. Family / Caregiver Present: No General Comment Comments: Upon arrival pt in bed Subjective Subjective: pt attempted to defer PT d/t reports of fatigued from having imaging earlier today. pt agreeable to ther ex. Social/Functional History Social/Functional History Lives With: Significant other (girlfriend and girlfriend's daughter) Type of Home: Mobile home Home Layout: One level Home Access: Stairs to enter with rails Entrance Stairs - Number of Steps: 4 Entrance Stairs - Rails: Left Bathroom Shower/Tub: Tub/Shower unit Bathroom Toilet: Standard Bathroom Equipment: Grab bars in shower,Shower chair Home Equipment: Walker, rolling (No AD at baseline) Receives Help From: Family ADL Assistance: Independent Homemaking Assistance: Independent Homemaking Responsibilities: Yes Ambulation Assistance: Independent Transfer Assistance: Independent Active Architectural Engineer: Yes Mode of Transportation: SUV 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 [employer] Leisure & Hobbies: anything other than clean , cooking Additional Comments: Girlfriend can assist PRN Cognition Orientation Overall Orientation Status: Within Functional Limits Cognition Arousal/Alertness: Delayed responses to stimuli Following Commands: Follows one step commands with repetition Objective Bed mobility Rolling to Left: Modified independent (bedrail used) Rolling to Right: Modified independent Transfers Sit to Stand: (pt defer d/t reports of fatigue) Bed to Chair: (pt defer d/t reports of fatigue) Ambulation Assistance: (pt defer d/t reports of fatigue) Exercise Treatment: bilat UE @ 15 reps of 5 variations with AROM while seated EOB, bilat LE 15 reps: hip add/abd, heel slide, SLR, PF/DF& isometric of hamstring/gluteal/quad while in supine AM-PAC Score AM-PAC Inpatient Mobility Raw Score : 17 (09/11/211126) AM-PAC Inpatient T-Scale Score : 42.13 (09/11/211126) Mobility Inpatient CMS 0-100% Score: 50.57 (09/11/211126) Mobility Inpatient CMS G-Code Modifier : CK (09/11/211126) Goals Short Term Goals Time Frame for Short term goals: 14 visits Short term goal 1: Complete bed mobility with min A Short term goal 2: Complete transfers with min A and RW Short term goal 3: Complete 200 ft of gait with min A and RW Short term goal 4: Complete 4 stpes LHR and min A Short term goal 5: Participate in 30 minutes of therapy to promote endurance Education Patient Education Education Provided: Role of Therapy;Plan of Care Therapy Time Individual Concurrent Group Co-treatment Time In 11:00 Time Out 11:14 Minutes 14' SY SEO PTA Images from the original note were not included. [facility] Office: [phone] Sony Raymond DO, Brodie Campos DO, Skip Diggs DO, Rubén Swain DO, Lee Ann Saldaña MD, Love Cortez MD, Sultana Harley MD, Solange Mercer MD, Jennifer Guo MD, Augusto Santizo MD, Lukas Angulo MD, Avelino Kent DO, Yanelis Grijalva MD, Fly Zapata DO, Jeaneth Begum MD, John Ricks MD, Madison Raymond DO, Nasra Schulte MD, Alessio Bhat MD, Jerry Davis DO, Justin Gaines MD, Yan Feliciano MD, Mayra Chicas CNP, Karlie Kenney CNP, Omkar Colunga CNP, Riri Serna CNP, Desire Harley, RECREATION SUPERVISOR, Ariel Stewart, RECREATION SUPERVISOR, WILL Carter-C, Jennifer Magaña, DNP, Patricia Harrington, RECREATION SUPERVISOR, Pauline Charles, RECREATION SUPERVISOR, Kelli Sarah, RECREATION SUPERVISOR, Sherron Ngo, SUPERVISOR [employer], Kellen Mabry, UMESH, Nyasia Lea, RECREATION SUPERVISOR, Elizabeth Cummings, RECREATION SUPERVISOR, Kellie Mora, RECREATION SUPERVISOR [facility] IN-PATIENT SERVICE [facility] Progress Note 09/11/2021 9:09 AM Name: Elias Walker Acct: [id number] Room: [address] [place] [address] Day: 13 Admit Date: 08/29/2021 1:02 AM PCP: No primary care provider on file. Code Status: Full Code Subjective: C/C: Chief Complaint Patient presents with Shortness of Breath [facility], cardiac tamponade Chest Pain Interval History Status: improved. Patient seen and examined at bedside, no acute events overnight. Seen after coming back from imaging Feels okay, ambulating much better Family at bedside Patient denies any chest pain, shortness of breath, chills, fevers, nausea or vomiting. Patient vitals, labs and all providers notes were reviewed,from overnight shift and morning updates were noted and discussed with the nurse Brief History: 36 year-old male who presented to OSH with hypertension and shortness of breath. Found to have pericardial effusion and sent to [facility] for further eval. He underwent pericardiocentesis with only 37 cc of dark fluid removed. He subsequently developed respiratory failure and was intubated. He had a positive blood culture (03/07) on 08/30 for group C strep. Repeat cultures on 08/31 negative. He also grew MRSA in his sputum. He developed neurologic deficits and underwent MRI which revealed multifocal infarcts. His CESAR was negative and EF maintained at 50%. No evidence of atrial fibrillation was appreciated. Additionally, he developed OZZIE with peak creatinine of 1.99. Nephrology was consulted and his OZZIE was attributed to ATN in the setting of sepsis. It is unclear what his baseline creatinine is as his last labs were from 2015. Interestingly, he was found to have hypercalcemia and significantly elevated PTH. He was administered calcitonin and a parathyroid nuclear scan was performed, which was unremarkable. He was treated initially with cefepime and vancomycin from 08/30 - 09/02 before being transitioned to ceftaroline on 09/03, which was further de-escalated to rocephin on 09/06. He will need IV rocephin through 09/28. He was extubated on 09/06 and transitioned to the medicine floor. 09/08: Pt continued to have low grade fever. It was unclear why he developed multifocal infarcts. We obtained an MRA of the head and neck which was unremarkable. His rheumatologic work-up was negative. CESAR negative and EF maintained with no evidence of atrial fibrillation as described above. Most likely diagnosis is septic emboli. Review of Systems: Review of Systems Constitutional: Positive for activity change and appetite change. Negative for chills, diaphoresis and fever. HENT: Negative for congestion. Eyes: Negative for visual disturbance. Respiratory: Negative for cough, chest tightness, shortness of breath and wheezing. Cardiovascular: Negative for chest pain, palpitations and leg swelling. Gastrointestinal: Negative for abdominal pain, blood in stool, constipation, diarrhea, nausea and vomiting. Genitourinary: Negative for difficulty urinating. Neurological: Negative for dizziness, weakness, light-headedness, numbness and headaches. All other systems reviewed and are negative. Medications: Allergies: Allergies Allergen Reactions Food Watermelon, Honeydew, Cantelope Tomato Current Meds: Scheduled Meds: QUEtiapine 25 mg Oral Nightly carvedilol 12.5 mg Oral BID NIFEdipine 30 mg Oral Daily cefTRIAXone (ROCEPHIN) IV 2,000 mg IntraVENous Q24H [Held by provider] furosemide 40 mg IntraVENous Daily [Held by provider] vitamin D 50,000 Units Per NG tube Weekly heparin (porcine) 5,000 Units SubCUTAneous 3 times per day sodium chloride flush 5-40 mL IntraVENous 2 times per day Continuous Infusions: sodium chloride Stopped (09/07/21 0405) PRN Meds: labetalol, bisacodyl, sodium chloride flush, sodium chloride, ondansetron OR ondansetron, polyethylene glycol, acetaminophen OR acetaminophen Data: Past Medical History: has a past medical history of Priapism, unspecified. Social History: reports that he has been smoking. He has a 15.00 pack-year smoking history. He does not have any smokeless tobacco history on file. He reports current alcohol use. He reports that he does not use drugs. Family History: No family history on file. Vitals: BP 124/86 Pulse 99 Temp 99.1 F (37.3 C) (Oral) Resp 16 Ht 5' 4 (1.626 m) Wt 232 lb 9.4 oz (105.5 kg) SpO2 98% BMI 39.92 kg/m Temp (24hrs), Av.7 F (37.1 C), Min:97.8 F (36.6 C), Max:99.8 F (37.7 C) No results for input(s): POCGLU in the last 72 hours. I/O (24Hr): No intake or output data in the 24 hours ending 09/11/21 0909 Labs: Hematology: Recent Labs 09/09/21 0558 09/10/21 0644 09/11/21 0546 WBC 9.2 8.6 8.7 RBC 4.57 4.67 4.47 HGB 13.0 13.3 12.9* HCT 40.3* 41.5 38.5* MCV 88.2 88.9 86.1 MCH 28.4 28.5 28.9 MCHC 32.3 32.0 33.5 RDW 12.2 12.3 12.4 PLT 401 370 316 MPV 11.5 10.1 10.5 Chemistry: Recent Labs 09/08/21 1328 09/09/21 1429 09/10/21 0644 NA 139 139 142 K 3.7 3.6* 4.0 CL 102 100 106 CO2 23 26 26 GLUCOSE 141* 110* 83 BUN 37* 41* 39* CREATININE 1.82* 2.12* 1.84* ANIONGAP 14 13 10 LABGLOM 42* 35* 42* GFRAA 51* 43* 50* CALCIUM 10.4 10.7* 10.4 No results for input(s): PROT, LABALBU, LABA1C, X9CEQZZ, S0MDNRP, FT4, TSH, AST, ALT, LDH, GGT, ALKPHOS, LABGGT, BILITOT, BILIDIR, AMMONIA, AMYLASE, LIPASE, LACTATE, CHOL, HDL, LDLCHOLESTEROL, CHOLHDLRATIO, TRIG, VLDL, [id number], PHENYTOIN, PHENYF, URICACID, POCGLU in the last 72 hours. ABG: Lab Results Component Value Date/Time POCPH 7.392 09/06/2021 04:41 AM POCPCO2 48.2 09/06/2021 04:41 AM POCPO2 98.0 09/06/2021 04:41 AM POCHCO3 29.3 09/06/2021 04:41 AM NBEA 2 09/03/2021 04:09 AM PBEA 4 09/06/2021 04:41 AM DGOO0XPO 98 09/06/2021 04:41 AM FIO2 40.0 09/06/2021 04:41 AM Lab Results Component Value Date/Time SPECIAL R HAND 10ML 09/08/2021 10:04 AM Lab Results Component Value Date/Time CULTURE NO GROWTH 2 DAYS 09/08/2021 10:04 AM Radiology: MRA HEAD WO CONTRAST Result Date: 09/08/2021 Unremarkable MRA head/neck without evidence for significant stenosis. Further evaluation with CTA of the head and neck may be helpful in further characterization. MRI CERVICAL SPINE WO CONTRAST Result Date: 09/04/2021 1. No cervical spinal cord lesion is identified. 2. Mild central spinal canal narrowing at C6-C7 where there is a 2 mm right paracentral disc protrusion. 3. The orogastric tube is coiled in the patient's pharynx. This could be repositioned for more optimal placement. NM PARATHYORID W SPECT Result Date: 09/08/2021 No convincing evidence of parathyroid adenoma. MRA NECK WO CONTRAST Result Date: 09/08/2021 Unremarkable MRA head/neck without evidence for significant stenosis. Further evaluation with CTA of the head and neck may be helpful in further characterization. MRI BRAIN WO CONTRAST Result Date: 09/04/2021 1. Punctate acute infarcts are noted in the cerebral hemispheres, right cerebral peduncle, and central/left paramidline of the albino. Given the multivessel distribution, these are concerning for embolic infarcts. 2. 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 3. Scattered paranasal sinus disease with bilateral mastoid effusions, likely related to intubation. 4. Small area of blooming artifact associated with an infarct in the posterior deep white matter of the right frontal lobe is likely related to sequela of remote hemorrhage. Physical Examination: Physical Exam Vitals and nursing note reviewed. Constitutional: General: He is not in acute distress. HENT: Head: Normocephalic and atraumatic. Eyes: Conjunctiva/sclera: Conjunctivae normal. Pupils: Pupils are equal, round, and reactive to light. Cardiovascular: Rate and Rhythm: Normal rate and regular rhythm. Heart sounds: No murmur heard. Pulmonary: Effort: Pulmonary effort is normal. No accessory muscle usage or respiratory distress. Breath sounds: No stridor. No decreased breath sounds, wheezing, rhonchi or rales. Abdominal: General: Bowel sounds are normal. There is no distension. Palpations: Abdomen is soft. Abdomen is not rigid. Tenderness: There is no abdominal tenderness. There is no guarding. Musculoskeletal: General: No tenderness. Skin: General: Skin is warm and dry. Findings: No erythema, lesion or rash. Neurological: Mental Status: He is alert and oriented to person, place, and time. Cranial Nerves: No cranial nerve deficit. Motor: No seizure activity. Psychiatric: Speech: Speech normal. Behavior: Behavior normal. Behavior is cooperative. Assessment: Hospital Problems Last Modified POA * (Principal) Cerebral septic emboli (HCC) 09/10/2021 Yes Cardiac tamponade 09/10/2021 Yes Acute respiratory failure with hypoxia ([facility]) 08/29/2021 Yes Acute heart failure (HCC) 08/30/2021 Yes Acute pulmonary edema ([facility]) 08/30/2021 Yes Pericardial effusion with cardiac tamponade 08/30/2021 Yes Pericardial effusion 08/30/2021 Yes Pleural effusion 08/30/2021 Yes Rhinovirus infection 09/01/2021 Yes Fever 09/01/2021 Yes Sepsis due to Streptococcus species without acute organ dysfunction ([facility]) 09/01/2021 Yes Staphylococcus aureus pneumonia ([facility]) 09/01/2021 Yes Delirium 09/03/2021 Yes Acute kidney injury ([facility]) 09/07/2021 Yes Hypercalcemia 09/06/2021 Yes Cerebral embolism 09/08/2021 Yes Cerebrovascular accident (CVA) ([facility]) 09/10/2021 Yes Plan: # 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 CESAR negative. EF is maintained at 50% so unlikely to be embolic from CHF. No documentation of atrial fibrillation. 1 blood culture positive for strep C from 08/30, repeats negative. Hepatitis, ANCA, MARIO, RF, anti-cardiolipin Ab, HIV negative. - MRA of head and neck unremarkable - appreciate neurology recommendations - rheumatology following #Sepsis, Strep C bacteremia - continue rocephin as ordered per ID, discussed with Dr. Henao. Will have midline placed. Will need rocephin throught 09/28 - repeat blood cultures 09/08 with NGTD #OZZIE secondary to ATN - nephro following. Creatinine improving. stone out #Hypertension - work-up for secondary causes of hypertension initiated. Renal arterial duplex was a poor study and did not yield much. TSH unremarkable. Aldosterone, metanephrines pending. Blood pressure much improved with initiation of nifedipine. Continue carvedilol 25 mg bid and nifedipine ER 30 mg daily #Hyperparathyroidism/hypercalcemi a - NM parathyroid scan unremarkable. Calcium improved. Check PTHrp. Will continue to monitor. Hematology to evaluate. Work up for MM is #Pericardial effusion - unclear etiology. Reviewed fluid studies. Resolved Disposition: stable for discharge, patients wants to go home Solange Mercer MD 09/11/2021 9:09 AM Images from the original note were not included. [facility] Progress Note Elias Walker Date: 09/10/2021 LOS: 12 Reason for F/U : Febrile illness Impression : 1. Acute hypoxic respiratory failure Extubated 09/06/2021 2. Methicillin-resistant Staph aureus pneumonia 3. Group C streptococcal sepsis 1 of 2 sets (08/30/2021) group C streptococcal sepsis which is typically associated with skin infections Repeat blood cultures 08/31/2021 are negative 4. Hypertensive emergency resolved 5. Pericardial effusion status post pericardiocentesis with 35 to 40 cc of fluid drained 08/29/2021 CESAR done 09/02/2021 without any vegetations 6. Rhinovirus/enteroviral infection 7. Pulmonary edema 8. Intermittent fevers - unclear etiology 9. Multiple punctate acute infarcts multivessel distribution suggesting septic embolic phenomena unclear etiology At this point in time the source of the embolic disease is not clear given he only had 1 out of 2 sets of blood cultures positive and echocardiogram did not show any stigmata to suggest endocarditis. 10. Obesity with obstructive sleep apnea 11. Acute kidney injury 12. Hypercalcemia Recommendations: The patient initially was on cefepime and vancomycin 08/30-09/02 Switched to ceftaroline 09/03/2021 due to concerns for OZZIE The patient has had 7 days of antibiotics to cover the MRSA in the sputum and ceftaroline was stopped 09/06/2021 Continue Rocephin to complete 28 days of antibiotic coverage through 09/28/2021 for the streptococcal sepsis with embolic phenomena Clinically the patient continues to make good recovery as his mentation continues to improve daily. Plans are in progress for potential discharge but insurance coverage remains the issue. Infection Control Recommendations: Walker precautions Discharge Planning: Estimated Length of IV antimicrobials: 09/28/2021 Patient will need Midline Catheter Insertion/ PICC line Insertion: No Patient will need: Home IV , Infusion Center, SNF, LTAC: Undetermined Patient willneed outpatient wound care: No Medical Decision making / Summary of Stay: Elias Walker is a 36 y.o.-year-old male who was initially admitted on 08/29/2021. Elias is currently intubated and the history is obtained from his girlfriend who is sitting at bedside and from reviewing the chart. Elias has no insurance and does not typically follow with physicians and his girlfriend reports that the only medication that he takes is a Zyrtec for some seasonal allergies. She also reports that he does typically get recurrent cellulitis in his left lower extremity, and that he recently had a viral illness about 2 weeks ago which she also contracted and reports having some rhinorrhea and headaches. She also reports that about a week ago he had a soft tissue abscess in his right hand which he was able to express some purulence out of The patient is obese and there is concern for obstructive sleep apnea He was also recently diagnosed with hypertension started on Lopressor. The patient presented to the emergency department complaining of shortness of breath and work-up in the seem to suggest CHF and a CT and ultrasound showed possible RA collapse with pericardial effusion at an outside facility suggested tamponade The patient was transferred here for further evaluation due to the concerns for tamponade and in the ED was intubated for airway protection and noted to be hypertensive started on nitroglycerin drip He has since been seen by cardiology and an echocardiogram showed moderate pericardial effusion and technically challenging evaluation there was no evidence of tamponade noted. 35 to 40 cc of fluid drained at pericardiocentesis in the emergency department. The patient is being treated for pulmonary edema and during the hospital stay he has been noted to have had fevers with a T-max of 101.3 degrees and was started on empiric antimicrobial therapy and I was asked to evaluate and help with antibiotic choice. The patient did undergo a CESAR that did not show any evidence of valvular heart disease/endocarditis The patient did have a new finding of bilateral Babinski's by the neurology service on 09/04/2021 had MRI of the brain done that showed multi vessel punctate acute infarcts There is a C6-C7 paracentral disc protrusion with some mild stenosis The patient was extubated 09/06/2021 MRA imaging of the head done on 09/08/21 without any significant findings. The nuclear medical scan of the parathyroids without any significant findings either done looking for a adenoma given the hypercalcemia The patient was seen by the neurology service and there was low suspicion for any underlying autoimmune illness or vasculitis. He just does not have enough symptoms or signs to suggest that. Moreover, his serology is entirely negative. His CRP was elevated on admission at 92 but has gone down to 29 with antibiotics. This is mostly secondary to infection. The strong pulses in the bilateral radial and dorsalis pedis and the normal MRA of his brain and neck stand against large vessel vasculitis such as Takayasu's I doubt any hypercoagulable state. I will, however check his phospholipid antibodies and beta-2 glycoprotein antibodies. Has hypercalcemia with elevated PTH that might be consistent with primary hyperparathyroidism. He might benefit from endocrinology evaluation as an outpatient Current evaluation:09/10/2021 BP (!) 120/58 Pulse 93 Temp 98.3 F (36.8 C) (Oral) Resp 17 Ht 5' 4 (1.626 m) Wt 225 lb 12 oz (102.4 kg) SpO2 95% BMI 38.75 kg/m Temperature Range: Temp: 98.3 F (36.8 C) Temp Av F (36.7 C) Min: 97.3 F (36.3 C) Max: 98.3 F (36.8 C) The patient is seen and evaluated at bedside he is awake and alert in no acute distress. Sitting up in the chair and his girlfriend is in the room with him. Does not report any subjective fevers or chills. In terms of his mentation he is more awake and alert and seems to be more appropriate and his memory is improving. The patient was seen by the hematology service today as there was concern whether the infarcts could be related to a malignant process. The patient had an SPEP sent to rule out multiple myeloma given the hypercalcemia Review of Systems Constitutional: Negative. Respiratory: Negative. Cardiovascular: Negative. Gastrointestinal: Negative. Genitourinary: Negative. Musculoskeletal: Negative. Allergic/Immunologic: Negative. Psychiatric/Behavioral: Positive for decreased concentration. Physical Examination : Physical Exam Constitutional: Appearance: He is well-developed. He is obese. HENT: Head: Normocephalic and atraumatic. Cardiovascular: Rate and Rhythm: Normal rate. Heart sounds: Normal heart sounds. No friction rub. No gallop. Pulmonary: Effort: Pulmonary effort is normal. Breath sounds: Normal breath sounds. No wheezing. Abdominal: General: Bowel sounds are normal. Palpations: Abdomen is soft. There is no mass. Tenderness: There is no abdominal tenderness. Musculoskeletal: Cervical back: Neck supple. Lymphadenopathy: Cervical: No cervical adenopathy. Skin: General: Skin is warm and dry. Neurological: Mental Status: He is alert. Laboratory data: I have independently reviewed the followinglabs: CBC with Differential: Recent Labs 09/09/21 0558 09/10/21 0644 WBC 9.2 8.6 HGB 13.0 13.3 HCT 40.3* 41.5 PLT 401 370 LYMPHOPCT 34 24 MONOPCT 11 8 BMP: Recent Labs 09/07/21 1753 09/07/21 1753 09/08/21 0643 09/08/21 1328 09/09/21 1429 09/10/21 0644 NA 145* < > 144 < > 139 142 K 3.5* < > 3.2* < > 3.6* 4.0 CL 106 < > 106 < > 100 106 CO2 27 < > 27 < > 26 26 BUN 42* < > 40* < > 41* 39* CREATININE 1.99* < > 1.95* < > 2.12* 1.84* MG 2.4 -- 2.3 -- -- -- < > = values in this interval not displayed. Hepatic Function Panel: No results for input(s): PROT, LABALBU, BILIDIR, IBILI, BILITOT, ALKPHOS, ALT, AST in the last 72 hours. Lab Results Component Value Date/Time PROCAL 0.17 08/30/2021 10:34 AM PROCAL 0.12 08/29/2021 08:07 AM Lab Results Component Value Date/Time CRP 29.4 09/08/2021 06:43 AM CRP 92.0 08/30/2021 10:34 AM Lab Results Component Value Date SEDRATE 60 (H) 09/08/2021 No results found for: DDIMER No results found for: FERRITIN No results found for: LDH No results found for: FIBRINOGEN Results in Past 30 Days Result Component Current Result Ref Range Previous Result Ref Range SARS-CoV-2, Rapid Not Detected (09/08/2021) Not Detected Not Detected (08/30/2021) Not Detected Lab Results Component Value Date/Time COVID19 Not Detected 09/08/2021 10:23 AM COVID19 Not Detected 08/30/2021 11:15 AM No results for input(s): VANCRACHELOUGH in the last 72 hours. Imaging Studies: MRA OF THE HEAD WITHOUT CONTRAST; MRA OF THE NECK WITHOUT CONTRAST 09/08/2021 12:05 pm: Impression Unremarkable MRA head/neck without evidence for significant stenosis. Further evaluation with CTA of the head and neck may be helpful in further characterization. NUCLEAR MEDICINE PARATHYROID SCINTIGRAPHY WITH SPECT 09/08/2021 Impression No convincing evidence of parathyroid adenoma. MRI OF THE CERVICAL SPINE WITHOUT CONTRAST 09/04/2021 12:34 pm Impression 1. No cervical spinal cord lesion is identified. 2. Mild central spinal canal narrowing at C6-C7 where there is a 2 mm right paracentral disc protrusion. 3. The orogastric tube is coiled in the patient's pharynx. This could be reposition for more optimal placement. MRI OF THE BRAIN WITHOUT CONTRAST 09/04/2021 12:34 pm Impression 1. Punctate acute infarcts are noted in the cerebral hemispheres, right cerebral peduncle, and central/left paramidline of the albino. Given the multivessel distribution, these are concerning for embolic infarcts. 2. 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 3. Scattered paranasal sinus disease with bilateral mastoid effusions, likely related to intubation. 4. Small area of blooming artifact associated with an infarct in the posterior right frontal lobe, deep white matter, likely related to sequela of remote hemorrhage. ONE XRAY VIEW OF THE CHEST 09/04/2021 5:51 am Impression Supportive tubing is stable. Mild improvement in bilateral airspace disease, pulmonary edema favored over pneumonia. Small components of pleural effusion are possible. CESAR findings: 09/02/2021 LA: Normal SKIP: No thrombus RA: Normal RV: Normal LV: Normal Estimated LVEF: 50% Aorta: Mild atheromatous disease arch Pericardium: Small pericardial effusion Septum: No intracardiac shunt via color Doppler. Valves: Mitral Valve: Structurally normal. Mild to moderate regurgitation is identified. Aortic Valve: The aortic valve is trileaflet and opens adequately. No regurgitiation is identified. Tricuspid valve: Structurally normal. No regurgitation is identified. Pulmonary valve: Normal. No significant regurgitation No valvular vegetations or thrombus identified. Summary: 1. A CESAR was performed without complications. 2. LVEF 50% 3. No thrombus or valvular vegetation identified 4. No intracardiac shunt via color Doppler. 5. There were no complications encountered. Cardiovascular Diseases Fellow [facility] ONE XRAY VIEW OF THE CHEST 09/02/2021 6:50 am Impression Stable support lines Slight improvement in still moderate diffuse bilateral alveolar infiltrates related to improving edema and or infection with decrease in now small right pleural effusion and moderate left basilar pleuroparenchymal process MRI OF THE ABDOMEN WITHOUT CONTRAST, 09/01/2021 1:48 pm Impression 1. Optimal definitive characterization of renal lesions requires utilization of IV contrast. Bilateral circumscribed renal lesions which would be compatible with simple renal cysts on this unenhanced study Largest in the anteromedial lower pole right kidney 3.5 cm. This is probably what is partially imaged on the recent ultrasound. 2. The appears to be some pelvic ascites as seen on the coronal images. Also of note is some body wall edema, small right pleural effusion and cardiomegaly. Cultures: Culture, Blood 1 [[id number]] Collected: 09/08/21 1000 Order Status: Completed Specimen: Blood Updated: 09/10/21 1041 Specimen Description .BLOOD Special Requests L HAND 10ML Culture NO GROWTH 2 DAYS Culture, Blood 1 [[id number]] Collected: 09/08/21 1004 Order Status: Completed Specimen: Blood Updated: 09/10/21 1040 Specimen Description .BLOOD Special Requests R HAND 10ML Culture NO GROWTH 2 DAYS Culture, Blood 1 [[id number]] Collected: 08/31/21 1515 Order Status: Completed Specimen: Blood Updated: 09/05/21 1553 Specimen Description .BLOOD Culture NO GROWTH 5 DAYS Culture, Blood 1 [[id number]] Collected: 08/31/21 1519 Order Status: Completed Specimen: Blood Updated: 09/05/21 1531 Specimen Description .BLOOD Culture NO GROWTH 5 DAYS Culture, Body Fluid [[id number]] (Abnormal) Collected: 08/29/21 0342 Order Status: Completed Specimen: Body Fluid Updated: 09/04/21 1436 Specimen Description .FLUID .PERICARDIAL FLUID Direct Exam RARE NEUTROPHILS Abnormal NO BACTERIA SEEN Gram stain made from cytocentrifuged specimen. Organisms and cells will be concentrated. Culture NO GROWTH 6 DAYS Culture, Blood 1 [[id number]] Collected: 08/30/21 0953 Order Status: Completed Specimen: Blood Updated: 09/04/21 1024 Specimen Description .BLOOD Special Requests 10ML R ARM Culture NO GROWTH 5 DAYS Culture, Blood 1 [[id number]] (Abnormal) Collected: 08/30/21 1001 Order Status: Completed Specimen: Blood Updated: 08/31/21 2337 Specimen Description .BLOOD Special Requests 20ML R WRIST Culture POSITIVE Blood Culture Abnormal DIRECT GRAM STAIN FROM BOTTLE: GRAM POSITIVE COCCI IN CHAINS Detected: Streptococcus species (not S. agalactiae (Group B), S. pneumoniae, or S. pyogenes (Group A)) Culture Results to Follow Methodology- Polymerase Chain Reaction (PCR) STREPTOCOCCI, BETA HEMOLYTIC GROUP C Abnormal (NOTE) Direct Gram Stain from bottle and Polymerase Chain Reaction (PCR) results called to and read back by: BAUTISTA Greenfield at 0425 on 08/31/21 Culture, Respiratory [[id number]] (Abnormal) Collected: 08/30/21 2341 Order Status: Completed Specimen: Endotracheal Updated: 09/02/21 0828 Specimen Description .ENDOTRACHEAL Direct Exam >10, <25 NEUTROPHILS/LPF < 10 EPITHELIAL CELLS/LPF PREDOMINANT ORGANISM: GRAM POSITIVE COCCI IN CLUSTERS Abnormal MIXED BACTERIAL MORPHOTYPES ALSO PRESENT ON GRAM STAIN. Abnormal Culture METHICILLIN RESISTANT STAPHYLOCOCCUS AUREUS HEAVY GROWTH Abnormal NORMAL RESPIRATORY JAMES LIGHT GROWTH Methicillin-Resistant Staphylococcus aureus (1) Antibiotic Interpretation Microscan Method Status penicillin Resistant >=0.5 BACTERIAL SUSCEPTIBILITY PANEL JULIÁN Final clindamycin Sensitive <=0.25 BACTERIAL SUSCEPTIBILITY PANEL JULIÁN Final erythromycin Sensitive <=0.25 BACTERIAL SUSCEPTIBILITY PANEL JULIÁN Final gentamicin Sensitive <=0.5 BACTERIAL SUSCEPTIBILITY PANEL JULIÁN Final Gentamicin is used only in combination with other active agents that test susceptible. levofloxacin Sensitive <=0.12 BACTERIAL SUSCEPTIBILITY PANEL JULIÁN Final oxacillin Resistant >=4 BACTERIAL SUSCEPTIBILITY PANEL JULIÁN Final tetracycline Sensitive <=1 BACTERIAL SUSCEPTIBILITY PANEL JULIÁN Final trimethoprim-sulfamethoxazole Sensitive <=10 BACTERIAL SUSCEPTIBILITY PANEL JULIÁN Final vancomycin Sensitive 1 BACTERIAL SUSCEPTIBILITY PANEL JULIÁN Final Specimen Collected: 08/30/21 23:41 Last Resulted: 09/02/21 08:28 MRSA DNA Probe, Nasal [[id number]] (Abnormal) Collected: 08/29/21 0813 Order Status: Completed Specimen: Nasal Updated: 08/30/21 1509 Specimen Description .NASAL SWAB MRSA, DNA, Nasal POSITIVE: MRSA DNA detected by nucleic acid amplification. Abnormal Comment: Results should be used as an adjunct to nosocomial control efforts to identify patients needing enhanced precautions. The test is not intended to identify patients with staphylococcal infections. Results should not be used to guide or monitor treatment for MRSA infections. Respiratory Panel, Molecular, with COVID-19 (Restricted: peds pts or suitable admitted adults) [[id number]] (Abnormal) Collected: 08/30/21 1115 Order Status: Completed Specimen: Nasopharyngeal Swab Updated: 08/30/21 1203 Specimen Description .NASOPHARYNGEAL SWAB Adenovirus PCR Not Detected Coronavirus 229E PCR Not Detected Coronavirus HKU1 PCR Not Detected Coronavirus NL63 PCR Not Detected Coronavirus OC43 PCR Not Detected SARS-CoV-2, PCR Not Detected Human Metapneumovirus PCR Not Detected Rhino/Enterovirus PCR DETECTED Abnormal Influenza A by PCR Not Detected Influenza B by PCR Not Detected Parainfluenza 1 PCR Not Detected Parainfluenza 2 PCR Not Detected Parainfluenza 3 PCR Not Detected Parainfluenza 4 PCR Not Detected Resp Syncytial Virus PCR Not Detected Bordetella Parapertussis Not Detected B Pertussis by PCR Not Detected Chlamydia pneumoniae By PCR Not Detected Mycoplasma pneumo by PCR Not Detected Comment: Performed by multiplexed nucleic acid assay. Medications: carvedilol 12.5 mg Oral BID NIFEdipine 30 mg Oral Daily cefTRIAXone (ROCEPHIN) IV 2,000 mg IntraVENous Q24H [Held by provider] furosemide 40 mg IntraVENous Daily [Held by provider] vitamin D 50,000 Units Per NG tube Weekly QUEtiapine 25 mg Per NG tube Nightly heparin (porcine) 5,000 Units SubCUTAneous 3 times per day sodium chloride flush 5-40 mL IntraVENous 2 times per day [facility] Ashish Henao MD [employer] OFFICE: Thank you for allowing us to participate in the care of this patient. Please call with questions. This note iscreated with the assistance of a speech recognition program. While intending to generate a document that actually reflects the content of the visit, the document can still have some errors including those of syntax andsound a like substitutions which may escape proof reading. In such instances, actual meaning can be extrapolated by contextual diversion. Physical Therapy Facility/Department: [address] [place] Physical Therapy daily treatment note Name: Elias Walker : 1985 Date of Service: 09/10/2021 Discharge Recommendations: Patient would benefit from continued therapy after discharge PT Equipment Recommendations Equipment Needed: No Patient Diagnosis(es): The primary encounter diagnosis was Acute heart failure, unspecified heart failure type (HCC). Diagnoses of Acute pulmonary edema (HCC), Pericardial effusion with cardiac tamponade, and Acute respiratory failure, unspecified whether with hypoxia or hypercapnia (HCC) were also pertinent to this visit. Assessment Body Structures, Functions, Activity Limitations Requiring Skilled Therapeutic Intervention: Decreased functional mobility ;Decreased balance;Decreased coordination;Decreased strength;Decreased ADL status;Decreased endurance;Decreased high-level IADLs Assessment: Pt bed mobility performed SBA, pt MIN A for STS, stood 3-4 minutes , competed multiple STS t/o treatment, pt ambulated with RW 60 ft x2 with chair follow, pt NBOS, L food adducts, slow monique, did well with 1 seated rest break. Pt currently unsafe to return to prior living situation d/t need for skilled assistance with all functional mobility. Pt would benefit from intensive continued therapy to promote endurance, balance, and strengthening. Therapy Prognosis: Good Decision Making: Medium Complexity Requires PT Follow-Up: Yes Activity Tolerance Activity Tolerance: Patient tolerated treatment well Plan Plan Plan: 6-7 times per week Current Treatment Recommendations: Strengthening,Neuromuscular re-education,Safety education & training,Patient/Caregiver education & training,Endurance training,Balance training,Functional mobility training,Transfer training,ADL/Self-care training,IADL training,Gait training,Stair training,Home exercise program,Equipment evaluation, education, & procurement,Therapeutic activities Safety Devices Type of Devices: Call light within reach,Chair alarm in place,Left in chair Restraints Restraints Initially in Place: No Restrictions Restrictions/Precautions Restrictions/Precautions: Fall Risk Required Braces or Orthoses?: No Position Activity Restriction Other position/activity restrictions: 6/26 intubated, 09/06 extubated Subjective Pain: pt denied pain General Chart Reviewed: Yes Patient assessed for rehabilitation services?: Yes Response To Previous Treatment: Patient with no complaints from previous session. Family / Caregiver Present: No Follows Commands: Impaired Other (Comment): Increased time to respond to commands/questions General Comment Comments: Pt retired to chair given callight, chair alarm set Subjective Subjective: RN and pt agreeable to PT. pt agreeable and pleasant. Pt supine in bed at start of session. Pt c/o no pain. Cognition Orientation Overall Orientation Status: Within Functional Limits Cognition Overall Cognitive Status: Exceptions Arousal/Alertness: Delayed responses to stimuli Following Commands: Follows one step commands with repetition Problem Solving: Decreased awareness of errors Insights: Decreased awareness of deficits Initiation: Requires cues for some Sequencing: Requires cues for some BBed mobility Supine to Sit: Contact guard assistance Sit to Supine: Unable to assess Scooting: Contact guard assistance Bed Mobility Comments: HOB elevated. Cues to progress task Transfers Sit to Stand: Contact guard assistance Stand to sit: Contact guard assistance Bed to Chair: Minimal assistance Comment: Consistent cues for correct B UE assist with all transfers Ambulation Device: Rolling Walker Other Apparatus: Wheelchair follow Assistance: Minimal assistance;Contact guard assistance Quality of Gait: 2 minor LOB Gait Deviations: Slow Monique;Decreased step length;Decreased step height (very NBOS, ankles touching, L leg ADD, presents with L L discrepencany) Distance: 60ft x2 Comments: Pt verbally cues t/o gait training to increase stepm length and increase DAGO, fair return 2, LOB with therapist assist, WC follow for safety More Ambulation?: No Stairs/Curb Stairs?: No Balance Posture: Fair Sitting - Static: Fair;+ Sitting - Dynamic: Fair Standing - Static: Fair Standing - Dynamic: Fair Comments: standing balance assessed with RW, pt sat 10 min EOB no assist Exercise Treatment: Seated LE exercise program: Long Arc Quads, hip abduction/adduction, heel/toe raises, and marches. Reps: 10 Dynamic Sitting Balance Exercises: EOB performing ther ex x10 Static Standing Balance Exercises: Pt stood 5 mins, cues to keep both hands on RW Goals Short Term Goals Time Frame for Short term goals: 14 visits Short term goal 1: Complete bed mobility with min A Short term goal 2: Complete transfers with min A and RW Short term goal 3: Complete 200 ft of gait with min A and RW Short term goal 4: Complete 4 stpes LHR and min A Short term goal 5: Participate in 30 minutes of therapy to promote endurance Education Patient Education Education Given To: Patient Education Provided: Role of Therapy;Plan of Care Education Method: Demonstration;Verbal Barriers to Learning: None Education Outcome: Verbalized understanding;Demonstrated understanding Therapy Time Individual Concurrent Group Co-treatment Time In 900 Time Out 0924 Minutes 23 Timed Code Treatment Minutes: 23 Minutes Lizzie Xiong PTA Occupational Therapy [facility]Department[facility] [address] [facility] Initial Assessment Name: Elias Walker : 1985 Date of Service: 09/10/2021 Discharge Recommendations: Further therapy recommended at discharge. Patient Diagnosis(es): The primary encounter diagnosis was Acute heart failure, unspecified heart failure type (HCC). Diagnoses of Acute pulmonary edema (HCC), Pericardial effusion with cardiac tamponade, and Acute respiratory failure, unspecified whether with hypoxia or hypercapnia (HCC) were also pertinent to this visit. Past Medical History: has a past medical history of Priapism, unspecified. Past Surgical History: has a past surgical history that includes Penis surgery (01/31/2016). Assessment Performance deficits / Impairments: Decreased functional mobility ;Decreased ADL status;Decreased cognition;Decreased safe awareness;Decreased balance;Decreased high-level IADLs Assessment: Pt agreeable to OT eval this date. Pt lying supine upon arrival to session. Pt completed supine <> sit with SBA and VCs to use bedrails for assistance. MMT/ROM assessed while seated EOB, demonstrating dynamic sitting balance with SBA. Pt demonstrated sit <> stand transfer with CGA and use of RW. VCs for safety required. Pt completed functional mobility to/from the bathroom with CGA and use of RW. Pt demonstrated decreased balance throughout and VCs required for safety. Pt bumped three objects with walker during functional mobility, demonstrating inattention to L lateral field. VCs required for safety and awareness of location. Pt completed simple hygiene task standing at sinkside with CGA and use of RW. Pt retired to bed lying supine. Pt demonstrated deficits in functional mobility, safety awareness, balance, and cognition impacting performance in ADLs/IADLs. Pt will require continued OT services during acute hospitalization to address the above noted deficits through skilled OT interventions for increased independence in ADLs/IADLs. Prognosis: Good Decision Making: Medium Complexity REQUIRES OT FOLLOW-UP: Yes Activity Tolerance Activity Tolerance: Patient Tolerated treatment well Plan Plan Times per Week: 3-5x/wk Current Treatment Recommendations: Balance training,Functional mobility training,Safety education & training,Patient/Caregiver education & training,Equipment evaluation, education, & procurement,Home management training,Self-Care / ADL,Cognitive/Perceptual training Restrictions Restrictions/Precautions Restrictions/Precautions: Fall Risk Required Braces or Orthoses?: No Position Activity Restriction Other position/activity restrictions: 08/29 intubated, 09/06 extubated Subjective General Patient assessed for rehabilitation services?: Yes Family / Caregiver Present: No General Comment Comments: RN ok'd OT eval this date. Pt agreeable to session. Pt cooperative/pleasant throughout. Pt denies pain. Social/Functional History Social/Functional History Lives With: Significant other (girlfriend and girlfriend's daughter) Type of Home: Mobile home Home Layout: One level Home Access: Stairs to enter with rails Entrance Stairs - Number of Steps: 4 Entrance Stairs - Rails: Left Bathroom Shower/Tub: Tub/Shower unit Bathroom Toilet: Standard Bathroom Equipment: Grab bars in shower,Shower chair Home Equipment: Walker, rolling (No AD at baseline) Receives Help From: Family ADL Assistance: Independent Homemaking Assistance: Independent Homemaking Responsibilities: Yes Ambulation Assistance: Independent Transfer Assistance: Independent Active Architectural Engineer: Yes Mode of Transportation: SUV 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 [employer] Leisure & Hobbies: anything other than clean , cooking Additional Comments: Girlfriend can assist PRN Objective Safety Devices Type of Devices: Gait belt;Bed alarm in place;Call light within reach;Left in bed Restraints Restraints Initially in Place: No Bed Mobility Training Bed Mobility Training: Yes Supine to Sit: Stand-by assistance;Additional time (Pt completed supine <> sit with SBA and VCs to utilize the bedrails for assistance.) Sit to Supine: Stand-by assistance;Additional time Balance Sitting: (Pt completed static sitting balance while sitting EOB for ~2 minutes with CGA. Pt demonstrated dynamic sitting balance at EOB during MMT/ROM assessment ~3 minutes with SBA.) Standing: (Pt demonstrated static standing balance at EOB and dynamic standing while completing simple hygiene task at sinkside with CGA and use of RW ~5 minutes.) Transfer Training Transfer Training: Yes Sit to Stand: Contact-guard assistance (Pt completed sit <> stand transfer from EOB with use of RW and VCs for safety and hand placement.) Stand to Sit: Contact-guard assistance (Pt completed stand <> sit transfer with CGA with use of RW.) Gait Overall Level of Assistance: Contact-guard assistance (Pt completed functional mobility to/from the bathroom with CGA and use of RW. Pt demonstrated decreased awareness of objects on L side during mobilty, bumping into 3 objects in room. Decreased balance/unsteadiness observed throughout and 2 instances of left knee buckling.) AROM: Within functional limits Strength: Within functional limits (MMT assessed at EOB; BUE grossly 4+/5) Coordination: Within functional limits Tone: Normal Sensation: Intact ADL Feeding: Modified independent ;Setup Grooming: Stand by assistance;Verbal cueing;Setup;Increased time to complete Grooming Skilled Clinical Factors: Pt completed simple hygiene task of washing face with SBA standing at sinkside. Pt demonstrated decreased awareness of L lateral field and required VCs to locate items on left. UE Bathing: Contact guard assistance;Setup;Verbal cueing;Increased time to complete LE Bathing: Minimal assistance;Setup;Increased time to complete;Verbal cueing UE Dressing: Contact guard assistance;Verbal cueing;Setup;Increased time to complete LE Dressing: Minimal assistance;Verbal cueing;Setup;Increased time to complete Toileting: Contact guard assistance;Increased time to complete Cognition Overall Cognitive Status: Exceptions Arousal/Alertness: Delayed responses to stimuli Following Commands: Follows one step commands with repetition Problem Solving: Decreased awareness of errors Insights: Decreased awareness of deficits Initiation: Requires cues for some Education Given To: Patient Education Provided Comments: Pt educated on OT role, OT POC, transfer training, ADL training, walker management - fair return Education Method: Demonstration;Verbal Barriers to Learning: Cognition Education Outcome: Verbalized understanding;Demonstrated understanding LUE AROM (degrees) LUE AROM : WFL Left Hand AROM (degrees) Left Hand AROM: WFL RUE AROM (degrees) RUE AROM : WFL Right Hand AROM (degrees) Right Hand AROM: WFL Hand Dominance Hand Dominance: Right AM-PAC Score AM-PAC Inpatient Daily Activity Raw Score: 19 (09/10/21 1353) AM-PAC Inpatient ADL T-Scale Score : 40.22 (09/10/21 1353) ADL Inpatient CMS 0-100% Score: 42.8 (09/10/21 1353) ADL Inpatient CMS G-Code Modifier : CK (09/10/211352) Goals Short Term Goals Time Frame for Short term goals: Before discharge, pt will: Short Term Goal 1: demo functional mobility and functional transfer with SUP and use of RW to increase independence in ADLs/IADLs. Short Term Goal 2: demo UB dressing/bathing with SUP Short Term Goal 3: demo LB ADLs and toileting with SBA and LRD PRN Short Term Goal 4: demo dynamic standing balance with SUP and use of RW for 10 minutes to increase engagement in functional tasks Short Term Goal 5: demo good safety awareness with 1 VC during all functional tasks in each session Short Term Goal 6: attend to 4/5 objects in L lateral field with <2 VCs during functional task to promote increased independence in ADLs/IADLs Therapy Time Individual Concurrent Group Co-treatment Time In 1059 Time Out 1126 Minutes 27 Timed Code Treatment Minutes: 23 Minutes TIEN Garcia Comprehensive Nutrition Assessment Type and Reason for Visit: Reassess Nutrition Recommendations/Plan: 1. Continue diet, Regular - Cardiac 2. Monitor PO intake, labs, wt, plan of care Malnutrition Assessment: Malnutrition Status: At risk for malnutrition (09/03/21 1140) Context: Acute Illness Findings of the 6 clinical characteristics of malnutrition: Energy Intake: Mild decrease in energy intake Weight Loss: No significant weight loss Body Fat Loss: No significant body fat loss Muscle Mass Loss: No significant muscle mass loss Fluid Accumulation: No significant fluid accumulation [place] Strength: Not Performed Nutrition Assessment: Pt reports a good appetite, eating most of meals (76-100%). Outside food is being brought in by family (pizza box on bed side table) to supplement. Wts reviewed - flux noted. Nutrition Related Findings: labs/meds reviewed. LBM 09/10. LLE edema noted. Wound Type: None Current Nutrition Intake & Therapies: Average Meal Intake: 76-100% Average Supplements Intake: None Ordered ADULT DIET; Regular; Low Fat/Low Chol/High Fiber/SOPHIA; Low Sodium (2 gm) Anthropometric Measures: Height: 5' 4 (162.6 cm) [place] Body Weight (IBW): 130 lbs (59 kg) Admission Body Weight: 246 lb 0.5 oz (111.6 kg) Current Body Weight: 225 lb 12 oz (102.4 kg), 173.7 % IBW. Weight Source: Bed Scale Current BMI (kg/m2): 38.7 Weight Adjustment For: No Adjustment BMI Categories: Obese Class 2 (BMI 35.0 -39.9) Estimated Daily Nutrient Needs: Energy Requirements Based On: Formula Weight Used for Energy Requirements: Current Energy (kcal/day): 8333-2788 kcals/day Weight Used for Protein Requirements: [place] Protein (g/day): 120 g/day Method Used for Fluid Requirements: Other (Comment) Fluid (ml/day): Per MD Nutrition Diagnosis: No nutrition diagnosis at this time Nutrition Interventions: Food and/or Nutrient Delivery: Continue Current Diet Nutrition Education/Counseling: No recommendation at this time Coordination of Nutrition Care: Continue to monitor while inpatient Goals: Previous Goal Met: Goal(s) Achieved Goals: PO intake 75% or greater,by next RD assessment Nutrition Monitoring and Evaluation: Behavioral-Environmental Outcomes: None Identified Food/Nutrient Intake Outcomes: Food and Nutrient Intake Physical Signs/Symptoms Outcomes: Biochemical Data,Nutrition Focused Physical Findings,Weight,Fluid Status or Edema Discharge Planning: No discharge needs at this time Amber Powers RD Contact: [phone] Images from the original note were not included. [facility] Office: [phone] Sony Raymond DO, Brodie Campos DO, Skip Diggs DO, Rubén Swain DO, Lee Ann Saldaña MD, Love Cortez MD, Sultana Harley MD, Solange Mercer MD, Jennifer Guo MD, Augusto Santizo MD, Lukas Angulo MD, Avelino Kent DO, Yanelis Grijalva MD, Fly Zapata DO, Jeaneth Begum MD, John Ricks MD, Madison Raymond DO, Nasra Schulte MD, Alessio Bhat MD, Jerry Davis DO, Justin Gaines MD, Yan Feliciano MD, Mayra Chicas, RECREATION SUPERVISOR, Karlie Kenney CNP, Omkar Colunga, RECREATION SUPERVISOR, Riri Serna, RECREATION SUPERVISOR, Desire Harley, RECREATION SUPERVISOR, Ariel Stewart, RECREATION SUPERVISOR, ALESSANDRA CarterC, Jennifer Magaña, DNP, Patricia Harrington, RECREATION SUPERVISOR, Pauline Charles, RECREATION SUPERVISOR, eKlli Sarah, RECREATION SUPERVISOR, Sherron Ngo, SUPERVISOR [employer], Kellen Mabry, UMESH, Nyasia Lea, RECREATION SUPERVISOR, Elizabeth Cummings, RECREATION SUPERVISOR, Kellie Mora, RECREATION SUPERVISOR [facility] IN-PATIENT SERVICE [facility] Progress Note 09/10/2021 11:49 AM Name: Elias Walker Acct: [id number] Room: [address] [place] [address] Day: 12 Admit Date: 08/29/2021 1:02 AM PCP: No primary care provider on file. Code Status: Full Code Subjective: C/C: Chief Complaint Patient presents with Shortness of Breath [facility], cardiac tamponade Chest Pain Interval History Status: improved. Pt seen and evaluated this morning. He continues to improve daily. He is denying any new complaints. We are awaiting evaluation by PM&R for potential inpatient rehab consideration. Brief History: 36 year-old male who presented to OSH with hypertension and shortness of breath. Found to have pericardial effusion and sent to [facility] for further eval. He underwent pericardiocentesis with only 37 cc of dark fluid removed. He subsequently developed respiratory failure and was intubated. He had a positive blood culture (1/2) on 08/30 for group C strep. Repeat cultures on 08/31 negative. He also grew MRSA in his sputum. He developed neurologic deficits and underwent MRI which revealed multifocal infarcts. His CESAR was negative and EF maintained at 50%. No evidence of atrial fibrillation was appreciated. Additionally, he developed OZZIE with peak creatinine of 1.99. Nephrology was consulted and his OZZIE was attributed to ATN in the setting of sepsis. It is unclear what his baseline creatinine is as his last labs were from 2015. Interestingly, he was found to have hypercalcemia and significantly elevated PTH. He was administered calcitonin and a parathyroid nuclear scan was performed, which was unremarkable. He was treated initially with cefepime and vancomycin from 08/30 - 09/02 before being transitioned to ceftaroline on 09/03, which was further de-escalated to rocephin on 09/06. He will need IV rocephin through 09/28. He was extubated on 09/06 and transitioned to the medicine floor. 09/08: Pt continued to have low grade fever. It was unclear why he developed multifocal infarcts. We obtained an MRA of the head and neck which was unremarkable. His rheumatologic work-up was negative. CESAR negative and EF maintained with no evidence of atrial fibrillation as described above. Most likely diagnosis is septic emboli. Review of Systems: Constitutional: negative for chills, fevers, sweats Respiratory: negative for cough, dyspnea on exertion, shortness of breath, wheezing Cardiovascular: negative for chest pain, chest pressure/discomfort, lower extremity edema, palpitations Gastrointestinal: negative for abdominal pain, constipation, diarrhea, nausea, vomiting Neurological: negative for dizziness, headache Medications: Allergies: Allergies Allergen Reactions Food Watermelon, Honeydew, Cantelope Tomato Current Meds: Scheduled Meds: carvedilol 12.5 mg Oral BID NIFEdipine 30 mg Oral Daily cefTRIAXone (ROCEPHIN) IV 2,000 mg IntraVENous Q24H [Held by provider] furosemide 40 mg IntraVENous Daily [Held by provider] vitamin D 50,000 Units Per NG tube Weekly QUEtiapine 25 mg Per NG tube Nightly heparin (porcine) 5,000 Units SubCUTAneous 3 times per day sodium chloride flush 5-40 mL IntraVENous 2 times per day Continuous Infusions: sodium chloride Stopped (09/07/21 0405) PRN Meds: labetalol, bisacodyl, sodium chloride flush, sodium chloride, ondansetron OR ondansetron, polyethylene glycol, acetaminophen OR acetaminophen Data: Past Medical History: has a past medical history of Priapism, unspecified. Social History: reports that he has been smoking. He has a 15.00 pack-year smoking history. He does not have any smokeless tobacco history on file. He reports current alcohol use. He reports that he does not use drugs. Family History: No family history on file. Vitals: BP 122/62 Pulse 92 Temp 97.9 F (36.6 C) (Temporal) Resp 20 Ht 5' 4 (1.626 m) Wt 225 lb 12 oz (102.4 kg) SpO2 96% BMI 38.75 kg/m Temp (24hrs), Av F (36.7 C), Min:97.3 F (36.3 C), Max:98.3 F (36.8 C) No results for input(s): POCGLU in the last 72 hours. I/O (24Hr): Intake/Output Summary (Last 24 hours) at 09/10/2021 1149 Last data filed at 09/10/2021 0800 Gross per 24 hour Intake 600 ml Output 900 ml Net -300 ml Labs: Hematology: Recent Labs 09/08/21 0643 09/09/21 0558 09/10/21 0644 WBC 9.9 9.2 8.6 RBC 4.44 4.57 4.67 HGB 12.7* 13.0 13.3 HCT 40.7 40.3* 41.5 MCV 91.7 88.2 88.9 MCH 28.6 28.4 28.5 MCHC 31.2 32.3 32.0 RDW 12.7 12.2 12.3 PLT 417 401 370 MPV 10.7 11.5 10.1 SEDRATE 60* -- -- CRP 29.4* -- -- Chemistry: Recent Labs 09/07/21 1753 09/07/21 1753 09/08/21 0643 09/08/21 0643 09/08/21 1328 09/09/21 1429 09/10/21 0644 NA 145* < > 144 < > 139 139 142 K 3.5* < > 3.2* < > 3.7 3.6* 4.0 CL 106 < > 106 < > 102 100 106 CO2 27 < > 27 < > 23 26 26 GLUCOSE 124* < > 130* < > 141* 110* 83 BUN 42* < > 40* < > 37* 41* 39* CREATININE 1.99* < > 1.95* < > 1.82* 2.12* 1.84* MG 2.4 -- 2.3 -- -- -- -- ANIONGAP 12 < > 11 < > 14 13 10 LABGLOM 38* < > 39* < > 42* 35* 42* GFRAA 46* < > 47* < > 51* 43* 50* CALCIUM 10.3 < > 10.5* < > 10.4 10.7* 10.4 < > = values in this interval not displayed. Recent Labs 09/08/21 0643 TSH 0.82 ABG: Lab Results Component Value Date/Time POCPH 7.392 09/06/2021 04:41 AM POCPCO2 48.2 09/06/2021 04:41 AM POCPO2 98.0 09/06/2021 04:41 AM POCHCO3 29.3 09/06/2021 04:41 AM NBEA 2 09/03/2021 04:09 AM PBEA 4 09/06/2021 04:41 AM JYAQ9SUI 98 09/06/2021 04:41 AM FIO2 40.0 09/06/2021 04:41 AM Lab Results Component Value Date/Time SPECIAL R HAND 10ML 09/08/2021 10:04 AM Lab Results Component Value Date/Time CULTURE NO GROWTH 2 DAYS 09/08/2021 10:04 AM Radiology: MRA HEAD WO CONTRAST Result Date: 09/08/2021 Unremarkable MRA head/neck without evidence for significant stenosis. Further evaluation with CTA of the head and neck may be helpful in further characterization. MRI CERVICAL SPINE WO CONTRAST Result Date: 09/04/2021 1. No cervical spinal cord lesion is identified. 2. Mild central spinal canal narrowing at C6-C7 where there is a 2 mm right paracentral disc protrusion. 3. The orogastric tube is coiled in the patient's pharynx. This could be repositioned for more optimal placement. XR CHEST PORTABLE Result Date: 09/04/2021 Supportive tubing is stable. Mild improvement in bilateral airspace disease, pulmonary edema favored over pneumonia. Small components of pleural effusion are possible. NM PARATHYORID W SPECT Result Date: 09/08/2021 No convincing evidence of parathyroid adenoma. XR ABDOMEN FOR NG/OG/NE TUBE PLACEMENT Result Date: 09/02/2021 Enteric tube with the tip in the stomach. The side port may be at the GE junction. Recommend advancement by 3 cm MRA NECK WO CONTRAST Result Date: 09/08/2021 Unremarkable MRA head/neck without evidence for significant stenosis. Further evaluation with CTA of the head and neck may be helpful in further characterization. MRI BRAIN WO CONTRAST Result Date: 09/04/2021 1. Punctate acute infarcts are noted in the cerebral hemispheres, right cerebral peduncle, and central/left paramidline of the albino. Given the multivessel distribution, these are concerning for embolic infarcts. 2. 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 3. Scattered paranasal sinus disease with bilateral mastoid effusions, likely related to intubation. 4. Small area of blooming artifact associated with an infarct in the posterior deep white matter of the right frontal lobe is likely related to sequela of remote hemorrhage. Physical Examination: General appearance: alert, cooperative and no distress Mental Status: oriented to person, place and time and normal affect Lungs: clear to auscultation bilaterally, normal effort Heart: regular rate and rhythm, no murmur Abdomen: soft, nontender, nondistended, normal bowel sounds, no masses, hepatomegaly, splenomegaly Extremities: no edema, redness, tenderness in the calves Skin: no gross lesions, rashes, induration Assessment: Hospital Problems Last Modified POA * (Principal) Cerebral septic emboli (HCC) 09/10/2021 Yes Cardiac tamponade 09/10/2021 Yes Acute respiratory failure with hypoxia (HCC) 08/29/2021 Yes Acute heart failure (HCC) 08/30/2021 Yes Acute pulmonary edema (HCC) 08/30/2021 Yes Pericardial effusion with cardiac tamponade 08/30/2021 Yes Pericardial effusion 08/30/2021 Yes Pleural effusion 08/30/2021 Yes Rhinovirus infection 09/01/2021 Yes Fever 09/01/2021 Yes Sepsis due to Streptococcus species without acute organ dysfunction (HCC) 09/01/2021 Yes Staphylococcus aureus pneumonia (HCC) 09/01/2021 Yes Delirium 09/03/2021 Yes Acute kidney injury (HCC) 09/07/2021 Yes Hypercalcemia 09/06/2021 Yes Cerebral embolism 09/08/2021 Yes Plan: #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 CESAR negative. EF is maintained at 50% so unlikely to be embolic from CHF. No documentation of atrial fibrillation. 1 blood culture positive for strep C from 08/30, repeats negative. Hepatitis, ANCA, MARIO, RF, anti-cardiolipin Ab, HIV negative. - MRA of head and neck unremarkable - appreciate neurology recommendations - rheumatology following #Sepsis, unclear source. Strep C bacteremia - continue rocephin as ordered per ID, discussed with Dr. Henao. Will have midline placed. Will need rocephin throught 09/28 - repeat blood cultures 09/08 with NGTD #OZZIE secondary to ATN - nephro following. Creatinine improving. D/C stone #Hypertension - work-up for secondary causes of hypertension initiated. Renal arterial duplex was a poor study and did not yield much. TSH unremarkable. Aldosterone, metanephrines pending. Blood pressure much improved with initiation of nifedipine. Continue carvedilol 25 mg bid and nifedipine ER 30 mg daily #Hyperparathyroidism/hypercalcemi a - NM parathyroid scan unremarkable. Calcium improved. Check PTHrp. Will continue to monitor. Hematology to evaluate. Will need endocrine referral as OP #Pericardial effusion - unclear etiology. Reviewed fluid studies. Resolved Disposition: stable for discharge, awaiting PM&R assessment. Ben Cesar PA-C 09/10/2021 11:49 AM [facility] IN-PATIENT SERVICE NEUROLOGY PROGRESS NOTE Date: 09/10/2021 Patient name: Elias Walker Date of admission: 08/29/2021 Date of : 1985 Interval History: Patient has made excellent progress over the past few days. He is now awake alert and able to answer questions on his own behalf. He is pleasant and cooperative. He notes improving strength in his left leg which was mildly paretic due to the right cerebral peduncle infarct noted on MRI among multiple other small punctate lesions. History of Present Illness: The patient is a 36 y.o. male who presents with Shortness of Breath ([facility] tx, cardiac tamponade) and Chest Pain . The patient was seen and examined and the chart was reviewed. Brief history shows that this patient has had significant hypertension prior to admission. Admission was 08/29/2021. He has been to several hospitals in attempt to control his hypertension. Patient patient subsequently was admitted to the hospital with shortness of breath and respiratory decompensation resulting in intubation and sedation. He was noted to have MRSA pneumonia as well as group C staph infection. Possible site of infection was dorsum of right hand. Patient had a very combative course. MRI eventually documented the presence of multiple small punctate embolic strokes consistent with septic emboli. Patient had multifactorial encephalopathy which was gradually improving over time. 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 3 day duration Past Surgical History: Past Surgical History: Procedure Laterality Date PENIS SURGERY 01/31/2016 decompression of priapism, penis shunt Medications during admission: carvedilol 12.5 mg Oral BID NIFEdipine 30 mg Oral Daily cefTRIAXone (ROCEPHIN) IV 2,000 mg IntraVENous Q24H [Held by provider] furosemide 40 mg IntraVENous Daily [Held by provider] vitamin D 50,000 Units Per NG tube Weekly QUEtiapine 25 mg Per NG tube Nightly heparin (porcine) 5,000 Units SubCUTAneous 3 times per day sodium chloride flush 5-40 mL IntraVENous 2 times per day Physical Exam: BP (!) 172/109 Pulse 81 Temp 97.9 F (36.6 C) (Temporal) Resp 20 Ht 5' 4 (1.626 m) Wt 225 lb 12 oz (102.4 kg) SpO2 96% BMI 38.75 kg/m Temp (24hrs), Av.9 F (36.6 C), Min:97.3 F (36.3 C), Max:98.3 F (36.8 C) Neurological examination: Mental status Awake t and oriented x 3 with some difficulty recalling the month; following all commands; speech is fluent, no dysarthria, aphasia. Patient still has mild decrease in concentration and recall. Cranial nerves II - visual wan intact to confrontation; pupils reactive III, IV, extraocular muscles intact; no QUINTEN; no nystagmus; no ptosis V - normal facial sensation VII - normal facial symmetry VIII - intact hearing IX, X -mildly hoarse on phonation likely due to his prior intubation XI -normal head turn XII - midline tongue Motor function Strength: 5/5 RUE, 5/5 RLE, 4/5 LUE, 4/5 LLE Normal bulk and tone. No tremors He does indicate some persistent weakness of the left leg. This may be notable when he attempts to stand. He is able to hold each leg off the bed for count of 10. Sensory function Intact to touch, vibration throughout Cerebellar no ataxia cogwheeling or rigidity. No tremor noted today Reflex function 0/4 symmetric throughout . Neutral plantar response bilaterally. Gait not tested today. Nurses report that he is ambulatory Diagnostics: Laboratory Testing: CBC: Recent Labs 09/08/21 0643 09/09/21 0558 09/10/21 0644 WBC 9.9 9.2 8.6 HGB 12.7* 13.0 13.3 PLT 417 401 370 BMP: Recent Labs 09/08/21 1328 09/09/21 1429 09/10/21 0644 NA 139 139 142 K 3.7 3.6* 4.0 CL 102 100 106 CO2 23 26 26 BUN 37* 41* 39* CREATININE 1.82* 2.12* 1.84* GLUCOSE 141* 110* 83 Lab Results Component Value Date TRIG 202 (H) 09/02/2021 ALT 13 08/30/2021 AST 20 08/30/2021 TSH 0.82 09/08/2021 No results found for: PHENYTOIN, PHENYTOIN, VALPROATE, CBMZ Impression: 1. Encephalopathy. Multifactorial. Improving to the point that he is now awake interactive. He has mild memory defect 2. Multiple small embolic infarcts documented by MRI 3. Mild left-sided weakness appears to be improving Plan: Continue supportive care. No new action per neurology Neurology will follow up on this case tomorrow Artur Quiñones MD [facility] [place] [facility] Renal Progress Note Patient : Elias Walker; 36 y.o. Location: 0418/0418-02 Attending: Solange Mercer MD Admit Date: 08/29/2021 Hospital Day: 12 Subjective: Patient was seen and examined. No acute events overnight Patient resting comfortably in bed this morning, states he did work with physical therapy today and seems to doing better. Urine output 900 mL over the last 24 hours Creatinine improving 2.12 down to 1.84. Sodium 142, potassium 4.0, chloride 106, bicarb 26, BUN 39. Calcium corrected from 10.7 to 10.4 s/p Zoledronic acid 09/09/2021. Heme-onc has been consulted. Tentative follow-up with endocrinology as outpatient. Less anxious this morning Plan for discharge to rehab Afebrile Hypertensive with blood pressure 172/109 this morning, most recent blood pressure 141/85, heart rate 94. Outpatient Medications: Medications Prior to Admission: loratadine-pseudoephedrine (CLARITIN-D 24 HOUR) 10-240 MG per extended release tablet, Take 1 tablet by mouth daily cephALEXin (KEFLEX) 500 MG capsule, Take 1 capsule by mouth 3 times daily docusate sodium (COLACE) 100 MG capsule, Take 1 capsule by mouth 2 times daily as needed for Constipation oxyCODONE-acetaminophen (PERCOCET) 5-325 MG per tablet, Take 1-2 tablets by mouth every 4 hours as needed for Pain Current Medications: Scheduled Meds: carvedilol 12.5 mg Oral BID NIFEdipine 30 mg Oral Daily cefTRIAXone (ROCEPHIN) IV 2,000 mg IntraVENous Q24H [Held by provider] furosemide 40 mg IntraVENous Daily [Held by provider] vitamin D 50,000 Units Per NG tube Weekly QUEtiapine 25 mg Per NG tube Nightly heparin (porcine) 5,000 Units SubCUTAneous 3 times per day sodium chloride flush 5-40 mL IntraVENous 2 times per day Continuous Infusions: sodium chloride Stopped (09/07/21 0405) PRN Meds: labetalol, bisacodyl, sodium chloride flush, sodium chloride, ondansetron OR ondansetron, polyethylene glycol, acetaminophen OR acetaminophen Input/Output: I/O last 3 completed shifts: In: 960 [P.O.:960] Out: 1550 [Urine:1550]. Patient Vitals for the past 96 hrs (Last 3 readings): Weight 09/07/21 0600 225 lb 12 oz (102.4 kg) Vital Signs: Temperature: Temp: 97.9 F (36.6 C) TMax: Temp (24hrs), Av.9 F (36.6 C), Min:97.3 F (36.3 C), Max:98.3 F (36.8 C) Respirations: Resp: 20 Pulse: Heart Rate: 81 BP: BP: (!) 172/109 BP Range: Systolic (24hrs), Av , Min:108 , Max:172 Diastolic (24hrs), Av, Min:70, Max:109 Physical Examination: General: AAO x 3, speaking in full sentences, no accessory muscle use. HEENT: Atraumatic, normocephalic, no throat congestion, moist mucosa. Eyes: Pupils equal, round and reactive to light, EOMI. Neck: Supple Chest: Bilateral vesicular breath sounds, no rales or wheezes. Cardiac: S1 S2 RR, no murmurs, gallops or rubs. Abdomen: Soft, non-tender, no masses or organomegaly, BS audible. : No suprapubic or flank tenderness. Neuro: AAO x 3, No FND. SKIN: No rashes, good skin turgor. Extremities: No edema. Labs: Recent Labs 09/08/21 0643 09/09/21 0558 09/10/21 0644 WBC 9.9 9.2 8.6 RBC 4.44 4.57 4.67 HGB 12.7* 13.0 13.3 HCT 40.7 40.3* 41.5 MCV 91.7 88.2 88.9 MCH 28.6 28.4 28.5 MCHC 31.2 32.3 32.0 RDW 12.7 12.2 12.3 PLT 417 401 370 MPV 10.7 11.5 10.1 BMP: Recent Labs 09/08/21 1328 09/09/21 1429 09/10/21 0644 NA 139 139 142 K 3.7 3.6* 4.0 CL 102 100 106 CO2 23 26 26 BUN 37* 41* 39* CREATININE 1.82* 2.12* 1.84* GLUCOSE 141* 110* 83 CALCIUM 10.4 10.7* 10.4 Magnesium: Recent Labs 09/07/21 1753 09/08/21 0643 MG 2.4 2.3 MARIO: Lab Results Component Value Date/Time MARIO NEGATIVE 08/30/2021 10:34 AM SPEP: Lab Results Component Value Date/Time PROT 5.8 09/02/2021 12:25 PM ALBCAL 3.1 09/02/2021 12:25 PM ALBPCT 53 09/02/2021 12:25 PM LABALPH 0.4 09/02/2021 12:25 PM LABALPH 0.8 09/02/2021 12:25 PM A1PCT 7 09/02/2021 12:25 PM A2PCT 13 09/02/2021 12:25 PM LABBETA 0.9 09/02/2021 12:25 PM BETAPCT 16 09/02/2021 12:25 PM GAMGLOB 0.7 09/02/2021 12:25 PM GGPCT 11 09/02/2021 12:25 PM PATH ELECTRONICALLY SIGNED. ZOE STERN M.D. 09/02/2021 12:25 PM PATH ELECTRONICALLY SIGNED. ZOE STERN M.D. 09/02/2021 12:25 PM C3: Lab Results Component Value Date/Time C3 183 09/02/2021 12:25 PM C4: Lab Results Component Value Date/Time C4 29 09/02/2021 12:25 PM MPO ANCA: Lab Results Component Value Date/Time MPO <0.3 08/30/2021 10:34 AM PR3 ANCA: Lab Results Component Value Date/Time PR3 0.9 08/30/2021 10:34 AM Hep BsAg: Lab Results Component Value Date/Time HEPBSAG NONREACTIVE 09/02/2021 12:25 PM Hep C AB: Lab Results Component Value Date/Time HEPCAB NONREACTIVE 09/02/2021 12:25 PM Urinalysis/Chemistries: Lab Results Component Value Date/Time NITRU NEGATIVE 08/30/2021 10:36 AM COLORU Yellow 08/30/2021 10:36 AM PHUR 5.0 08/30/2021 10:36 AM WBCUA 20 TO 50 08/30/2021 10:36 AM RBCUA 2 TO 5 08/30/2021 10:36 AM SPECGRAV 1.020 08/30/2021 10:36 AM LEUKOCYTESUR MODERATE 08/30/2021 10:36 AM UROBILINOGEN Normal 08/30/2021 10:36 AM BILIRUBINUR NEGATIVE 08/30/2021 10:36 AM GLUCOSEU NEGATIVE 08/30/2021 10:36 AM KETUA NEGATIVE 08/30/2021 10:36 AM Urine Creatinine: Lab Results Component Value Date/Time LABCREA 129.7 09/02/2021 02:14 PM Radiology: Reviewed. Assessment: 1. Acute Kidney Injury nonoliguric likely secondary to ischemic ATN from sepsis, low flow state, underlying heart failure and further aggravated by nephrotoxic agents including ibuprofen, Bactrim and was recently given vancomycin as well. Exact baseline is not available seems to be around 1.6-1.8. 2. Bacteremia versus sepsis with blood culture positivity on August 30, 2021 positive for beta-hemolytic streptococci group C 3. Respiratory panel on August 30, 2021 positive for rhino/enterovirus PCR. 4. Acute respiratory failure multifactorial requiring mechanical ventilation now extubated. Patient was extubated September 06, 2021. 5. Hypercalcemia likely PTH related and further complicated by use of calcium carbonate-cholecalciferol and ergocalciferol, likely also has a factor of immobilization. 6. Cardiomyopathy with last EF of 30 to 35% as per 2D echo done on August 29, 2021 7. Morbid obesity 8. Obstructive sleep apnea 9. Fluid overload-improving 10. Hypernatremia likely due to decreased free water intake 11. Pericardial effusion status post Pericardiocentesis with about 35 to 40 cc of dark fluid drained on August 29, 2021 12. Hypercalcemia given 1 dose of zoledronic acid on 09/09/2021 and calcium improved 13. Multiple punctate acute infarcts likely embolic. Neurology following. Plan: 1. Okay to IVORY stone today. 2. Agree with stopping vitamin D and calcium supplements for the time being. 3. Heme-onc eval pending. To follow-up with endocrinology as outpatient as well. 4. Increase free water intake 5. Strict I's and O's 6. Continue PT/OT and encourage mobilization 7. Avoid any nephrotoxic agents as much as possible 8. Since renal function is stable and calcium levels also improved, nephrology will sign off. Please call with questions. 9. BMP in 1 week post discharge and fax results to Dr. Serrano office; . 10. Follow up with Dr. Serrano in 3-4 weeks post d/c. 11. Nutrition Please ensure that patient is on a renal diet/TF. Avoid nephrotoxic drugs/contrast exposure. Luis Felipe Hinson MD Attending Physician Statement I have discussed the care of this patient, including pertinent history and exam findings, with the Resident/RECREATION SUPERVISOR. I have reviewed and edited the salguero elements of all parts of the encounter with the Resident/RECREATION SUPERVISOR. I agree with the assessment, plan and orders as documented by the Resident/RECREATION SUPERVISOR. Talib Saldaña MD [facility] This note is created with the assistance of a speech-recognition program. While intending to generate a document that actually reflects the content of the visit, no guarantees can be provided that every mistake has been identified and corrected by editing. NEUROLOGY INPATIENT PROGRESS NOTE 09/09/2021 Current Exam: Chart reviewed. Discussed with RN. Is ambulating with PT. Improving everyday. Has no acute complaints. Some answers are mildly delayed. Brief History: Elias Walker is a 36 y.o. male who was admitted as a transfer from outside hospital on 08/29/2021 where he initially presented with shortness of breath and chest pain. Was found to have cardiac tamponade with pericardial effusion and was transferred to [facility]. Has had difficulties with hypertension. Has OZZIE. Had MRSA pneumonia septicemia with unclear source and required oral intubation and ventilation. He is also required sedation for agitation. MRI of the brain was done showing multiple small punctate infarcts including the right cerebral peduncle, left paramedian albino, and both hemispheres. MRA head and neck was unremarkable. Initial ECHO with EF 35-40% and later CESAR was negative for any vegetation with EF 50%. There has been no evidence of A. fib this admission. No current facility-administered medications on file prior to encounter. Current Outpatient Medications on File Prior to Encounter Medication Sig Dispense Refill loratadine-pseudoephedrine (CLARITIN-D 24 HOUR) 10-240 MG per extended release tablet Take 1 tablet by mouth daily cephALEXin (KEFLEX) 500 MG capsule Take 1 capsule by mouth 3 times daily 21 capsule 0 docusate sodium (COLACE) 100 MG capsule Take 1 capsule by mouth 2 times daily as needed for Constipation 30 capsule 0 oxyCODONE-acetaminophen (PERCOCET) 5-325 MG per tablet Take 1-2 tablets by mouth every 4 hours as needed for Pain 20 tablet 0 Allergies: Elias Walker is allergic to food and tomato. Past Medical History: Diagnosis Date Priapism, unspecified 01/31/2016 3 day duration Past Surgical History: Procedure Laterality Date PENIS SURGERY 01/31/2016 decompression of priapism, penis shunt Social History: Elias Walker reports that he has been smoking. He has a 15.00 pack-year smoking history. He does not have any smokeless tobacco history on file. He reports current alcohol use. He reports that he does not use drugs. No family history on file. Objective: BP 112/70 Pulse 75 Temp 98.3 F (36.8 C) (Oral) Resp 22 Ht 5' 4 (1.626 m) Wt 225 lb 12 oz (102.4 kg) SpO2 93% BMI 38.75 kg/m Blood pressure range: Systolic (24hrs), Av , Min:107 , Max:180 ; Diastolic (24hrs), Av, Min:70, Max:132 Review of Systems: Constitutional Negative for fever and chills HEENT Negative for ear discharge, ear pain, nosebleed Eyes Negative for photophobia, pain and discharge Respiratory Negative for hemoptysis and sputum Cardiovascular Negative for orthopnea, claudication and PND Gastrointestinal Negative for abdominal pain, diarrhea, blood in stool Musculoskeletal Negative for joint pain, negative for myalgia Skin Negative for rash or itching Endo/heme/allergies Negative for polydipsia, environmental allergy Psychiatric/behavioral Negative for suicidal ideation. Patient is not anxious NEUROLOGIC EXAMINATION GENERAL Appears comfortable and in no distress HEENT NC/ AT NECK Supple MENTAL STATUS: Alert, oriented, intact memory, no confusion, normal speech, normal language, no hallucination or delusion. Intact naming. Cannot spell world forward or backward. CRANIAL NERVES: II - Visual wan intact to confrontation III,IV, - EOMs full, no afferent defect, no QUINTEN, no ptosis V - Normal facial sensation VII - Normal facial symmetry VIII - Intact hearing IX,X - Symmetrical palate XI - Symmetrical shoulder shrug XII - Midline tongue, no atrophy MOTOR FUNCTION: Full strength throughout with normal bulk, normal tone and no involuntary movements, no tremor SENSORY FUNCTION: Normal touch, normal pin CEREBELLAR FUNCTION: Intact fine motor control over upper limbs REFLEX FUNCTION: Symmetric, no perverted reflex, no Babinski sign STATION and GAIT Not tested Data: Lab Results: CBC: Recent Labs 09/07/21 0553 09/08/21 0643 09/09/21 0558 WBC 9.7 9.9 9.2 HGB 13.3 12.7* 13.0 PLT 428 417 401 BMP: Recent Labs 09/08/21 0643 09/08/21 1328 09/09/21 1429 NA 144 139 139 K 3.2* 3.7 3.6* CL 106 102 100 CO2 27 23 26 BUN 40* 37* 41* CREATININE 1.95* 1.82* 2.12* GLUCOSE 130* 141* 110* Lab Results Component Value Date TRIG (H) 09/02/2021 ALT 13 08/30/2021 AST 20 08/30/2021 TSH 0.82 09/08/2021 Diagnostic data reviewed: BRAIN MRI (09/03/21) - 1. Punctate acute infarcts are noted in the cerebral hemispheres, right cerebral peduncle, and central/left paramidline of the albino. Given the multivessel distribution, these are concerning for embolic infarcts. 2. 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 3. Scattered paranasal sinus disease with bilateral mastoid effusions, likely related to intubation. 4. Small area of blooming artifact associated with an infarct in the posterior deep white matter of the right frontal lobe is likely related to sequela of remote hemorrhage. MRA HEAD AND NECK (09/08/21) - Unremarkable MRA head/neck without evidence for significant stenosis. Further evaluation with CTA of the head and neck may be helpful in further characterization. CESAR (09/02/21) - 1. A CESAR was performed without complications. 2. LVEF 50% 3. No thrombus or valvular vegetation identified 4. No intracardiac shunt via color Doppler. 5. There were no complications encountered. Impression: -Acute metabolic encephalopathy, multifactorial, in the setting of acute respiratory failure, pericardial effusion, sepsis, pneumonia, OZZIE; improving -Multiple embolic infarcts on CT head in the setting of septicemia; CESAR negative for any vegetation Plan: -Patient continues on antibiotics with ID following; treating for SBE despite CESAR being negative for vegetation -No evidence of A fib this admission -Continue therapy; ambulates 100 feet with therapy -Will follow Please note that this note was generated using a voice recognition dictation software. Although every effort was made to ensure the accuracy of this automated foam molder, some errors in foam molder may have occurred. Physical Therapy Facility/Department: [address] [facility] Physical Therapy Daily treatment note Name: Elias Walker : 1985 Date of Service: 09/09/2021 Discharge Recommendations: Patient would benefit from continued therapy after discharge PT Equipment Recommendations Equipment Needed: No (Owns RW) Patient Diagnosis(es): The primary encounter diagnosis was Acute heart failure, unspecified heart failure type (HCC). Diagnoses of Acute pulmonary edema (HCC), Pericardial effusion with cardiac tamponade, and Acute respiratory failure, unspecified whether with hypoxia or hypercapnia (HCC) were also pertinent to this visit. Assessment Body Structures, Functions, Activity Limitations Requiring Skilled Therapeutic Intervention: Decreased functional mobility ;Decreased balance;Decreased coordination;Decreased strength;Decreased ADL status;Decreased endurance;Decreased high-level IADLs Assessment: Pt bed mobility performed SBA, pt MIN A for STS, stood 3-4 minutes , competed 8 STS t/o treatment, pt ambulated with RW 50 ft x2 with chair follow, pt NBOS, L food adducts, slow monique, did well with 1 seated rest break. Pt currently unsafe to return to prior living situation d/t need for skilled assistance with all functional mobility. Pt would benefit from intensive continued therapy to promote endurance, balance, and strengthening. Therapy Prognosis: Good Decision Making: Medium Complexity Requires PT Follow-Up: Yes Activity Tolerance Activity Tolerance: Patient tolerated treatment well Plan Plan Plan: 6-7 times per week Current Treatment Recommendations: Strengthening,Neuromuscular re-education,Safety education & training,Patient/Caregiver education & training,Endurance training,Balance training,Functional mobility training,Transfer training,ADL/Self-care training,IADL training,Gait training,Stair training,Home exercise program,Equipment evaluation, education, & procurement,Therapeutic activities Safety Devices Type of Devices: All fall risk precautions in place,Gait belt,Nurse notified,Call light within reach,Left in bed,Chair alarm in place,Left in chair Restraints Restraints Initially in Place: No Restrictions Restrictions/Precautions Restrictions/Precautions: Fall Risk Required Braces or Orthoses?: No Position Activity Restriction Other position/activity restrictions: extubated 09/06 Subjective General Chart Reviewed: Yes Patient assessed for rehabilitation services?: Yes Response To Previous Treatment: Patient with no complaints from previous session. Family / Caregiver Present: No Follows Commands: Impaired Other (Comment): Increased time to respond to commands/questions General Comment Comments: Pt retired to chair given callight, chair alarm set Subjective Subjective: RN and pt agreeable to PT. pt agreeable and pleasant. Pt supine in bed at start of session. Pt c/o no pain. Bed mobility Supine to Sit: Contact guard assistance Sit to Supine: Unable to assess Scooting: Contact guard assistance Bed Mobility Comments: HOB elevated. Cues to progress task Transfers Sit to Stand: Contact guard assistance;Minimal Assistance Stand to sit: Contact guard assistance;Minimal Assistance Bed to Chair: Minimal assistance Comment: Consistent cues for correct B UE assist with all transfers Ambulation Device: Rolling Walker Other Apparatus: Wheelchair follow Assistance: Minimal assistance;Contact guard assistance Quality of Gait: no LOB Gait Deviations: Slow Monique;Decreased step length;Decreased step height (very NBOS, ankles touching, L leg ADD, presents with L L discrepencany) Distance: 50 ft x2 More Ambulation?: No Stairs/Curb Stairs?: No Balance Posture: Fair Sitting - Static: Fair;+ Sitting - Dynamic: Fair Standing - Static: Fair Standing - Dynamic: Fair Comments: standing balance assessed with RW, pt sat 10 min EOB no assist Exercise Treatment: .sit Dynamic Sitting Balance Exercises: EOB performing ther ex x10 Static Standing Balance Exercises: Pt stood 5 mins, cues to keep both hands on RW Goals Short Term Goals Time Frame for Short term goals: 14 visits Short term goal 1: Complete bed mobility with min A Short term goal 2: Complete transfers with min A and RW Short term goal 3: Complete 200 ft of gait with min A and RW Short term goal 4: Complete 4 stpes LHR and min A Short term goal 5: Participate in 30 minutes of therapy to promote endurance Education Patient Education Education Given To: Patient Education Provided: Role of Therapy;Plan of Care Education Method: Demonstration;Verbal Barriers to Learning: None Education Outcome: Verbalized understanding;Demonstrated understanding Therapy Time Individual Concurrent Group Co-treatment Time In 1355 Time Out 1438 Minutes 43 Timed Code Treatment Minutes: 38 Minutes Lizzie Xiong PTA Patient's mom updated via phone. Renal Progress Note Patient : Elias Walker; 36 y.o. Location: 0418/0418-02 Attending: Solange Mercer MD Admit Date: 08/29/2021 Hospital Day: 11 Subjective: Patient was seen and examined. No acute events overnight Patient resting comfortably in bed this morning Good urine output of about 1.2 L in the last 24 hours. Primary did check MRA neck and head 09/08/2021 which was unremarkable. Parathyroid nuclear medicine scan 09/08/2021 showed no convincing evidence of parathyroid adenoma. Leg swelling improved Left leg larger than right > no pain to palpation of calf and Homans sign negative. Patient has apparently not moved out of bed since last few weeks. Started working with PT OT today. He feels much better today, energy level looks improved as well. Repeat blood cultures negative Afebrile VSS BMP results were not available in the morning, most recent lab work just came back with creatinine of 2.12 mg/DL, calcium 10.7, sodium 139, potassium 3.6, chloride 100, bicarb 26, BUN 41, glucose 110. Patient is currently not on any IV fluids. Outpatient Medications: Medications Prior to Admission: loratadine-pseudoephedrine (CLARITIN-D 24 HOUR) 10-240 MG per extended release tablet, Take 1 tablet by mouth daily cephALEXin (KEFLEX) 500 MG capsule, Take 1 capsule by mouth 3 times daily docusate sodium (COLACE) 100 MG capsule, Take 1 capsule by mouth 2 times daily as needed for Constipation oxyCODONE-acetaminophen (PERCOCET) 5-325 MG per tablet, Take 1-2 tablets by mouth every 4 hours as needed for Pain Current Medications: Scheduled Meds: carvedilol 25 mg Oral BID NIFEdipine 30 mg Oral Daily cefTRIAXone (ROCEPHIN) IV 2,000 mg IntraVENous Q24H [Held by provider] furosemide 40 mg IntraVENous Daily [Held by provider] vitamin D 50,000 Units Per NG tube Weekly QUEtiapine 25 mg Per NG tube Nightly heparin (porcine) 5,000 Units SubCUTAneous 3 times per day sodium chloride flush 5-40 mL IntraVENous 2 times per day Continuous Infusions: sodium chloride Stopped (09/07/21 0405) PRN Meds: labetalol, bisacodyl, sodium chloride flush, sodium chloride, ondansetron OR ondansetron, polyethylene glycol, acetaminophen OR acetaminophen Input/Output: I/O last 3 completed shifts: In: 2061 [P.O.:1050; I.V.:1012] Out: 1949 [Urine:1950]. Patient Vitals for the past 96 hrs (Last 3 readings): Weight 09/07/21 0600 225 lb 12 oz (102.4 kg) 09/06/21 0600 225 lb 12 oz (102.4 kg) Vital Signs: Temperature: Temp: 97.5 F (36.4 C) TMax: Temp (24hrs), Av.3 F (36.8 C), Min:97.5 F (36.4 C), Max:98.8 F (37.1 C) Respirations: Resp: 26 Pulse: Heart Rate: 80 BP: BP: 122/77 BP Range: Systolic (24hrs), Av , Min:107 , Max:180 Diastolic (24hrs), Av, Min:71, Max:132 Physical Examination: General: AAO x 3, speaking in full sentences, no accessory muscle use. Anxious and fidgety this morning HEENT: Atraumatic, normocephalic, no throat congestion, moist mucosa. Eyes: Pupils equal, round and reactive to light, EOMI. Neck: Supple Chest: Bilateral vesicular breath sounds, no rales or wheezes. Cardiac: S1 S2 RR, no murmurs, gallops or rubs. Abdomen: Soft, non-tender, no masses or organomegaly, BS audible. : No suprapubic or flank tenderness. Neuro: AAO x 3, No FND. SKIN: No rashes, good skin turgor. Extremities: Improved edema. Left leg larger than right. Labs: Recent Labs 09/07/21 0553 09/08/21 0643 09/09/21 0558 WBC 9.7 9.9 9.2 RBC 4.63 4.44 4.57 HGB 13.3 12.7* 13.0 HCT 40.8 40.7 40.3* MCV 88.1 91.7 88.2 MCH 28.7 28.6 28.4 MCHC 32.6 31.2 32.3 RDW 12.5 12.7 12.2 PLT 428 417 401 MPV 10.0 10.7 11.5 BMP: Recent Labs 09/07/21 1753 09/08/21 0643 09/08/21 1328 NA 145* 144 139 K 3.5* 3.2* 3.7 CL 106 106 102 CO2 27 27 23 BUN 42* 40* 37* CREATININE 1.99* 1.95* 1.82* GLUCOSE 124* 130* 141* CALCIUM 10.3 10.5* 10.4 Magnesium: Recent Labs 09/07/21 17509/08/21 0643 MG 2.4 2.3 MARIO: Lab Results Component Value Date/Time MARIO NEGATIVE 08/30/2021 10:34 AM SPEP: Lab Results Component Value Date/Time PROT 5.8 09/02/2021 12:25 PM ALBCAL 3.1 09/02/2021 12:25 PM ALBPCT 53 09/02/2021 12:25 PM LABALPH 0.4 09/02/2021 12:25 PM LABALPH 0.8 09/02/2021 12:25 PM A1PCT 7 09/02/2021 12:25 PM A2PCT 13 09/02/2021 12:25 PM LABBETA 0.9 09/02/2021 12:25 PM BETAPCT 16 09/02/2021 12:25 PM GAMGLOB 0.7 09/02/2021 12:25 PM GGPCT 11 09/02/2021 12:25 PM PATH ELECTRONICALLY SIGNED. ZOE STERN M.D. 09/02/2021 12:25 PM PATH ELECTRONICALLY SIGNED. ZOE STREN M.D. 09/02/2021 12:25 PM C3: Lab Results Component Value Date/Time C3 183 09/02/2021 12:25 PM C4: Lab Results Component Value Date/Time C4 29 09/02/2021 12:25 PM MPO ANCA: Lab Results Component Value Date/Time MPO <0.3 08/30/2021 10:34 AM PR3 ANCA: Lab Results Component Value Date/Time PR3 0.9 08/30/2021 10:34 AM Hep BsAg: Lab Results Component Value Date/Time HEPBSAG NONREACTIVE 09/02/2021 12:25 PM Hep C AB: Lab Results Component Value Date/Time HEPCAB NONREACTIVE 09/02/2021 12:25 PM Urinalysis/Chemistries: Lab Results Component Value Date/Time NITRU NEGATIVE 08/30/2021 10:36 AM COLORU Yellow 08/30/2021 10:36 AM PHUR 5.0 08/30/2021 10:36 AM WBCUA 20 TO 50 08/30/2021 10:36 AM RBCUA 2 TO 5 08/30/2021 10:36 AM SPECGRAV 1.020 08/30/2021 10:36 AM LEUKOCYTESUR MODERATE 08/30/2021 10:36 AM UROBILINOGEN Normal 08/30/2021 10:36 AM BILIRUBINUR NEGATIVE 08/30/2021 10:36 AM GLUCOSEU NEGATIVE 08/30/2021 10:36 AM KETUA NEGATIVE 08/30/2021 10:36 AM Urine Creatinine: Lab Results Component Value Date/Time LABCREA 129.7 09/02/2021 02:14 PM Radiology: Reviewed. Assessment: 1. Acute Kidney Injury nonoliguric likely secondary to ischemic ATN from sepsis, low flow state, underlying heart failure and further aggravated by nephrotoxic agents including ibuprofen, Bactrim and was recently given vancomycin as well. Exact baseline is not available seems to be around 1.6-1.8. 2. Bacteremia versus sepsis with blood culture positivity on August 30, 2021 positive for beta-hemolytic streptococci group C 3. Respiratory panel on August 30, 2021 positive for rhino/enterovirus PCR. 4. Acute respiratory failure multifactorial requiring mechanical ventilation now extubated. Patient was extubated September 06, 2021. 5. Hypercalcemia likely PTH related and further complicated by use of calcium carbonate-cholecalciferol and ergocalciferol, likely also has a factor of immobilization. 6. Cardiomyopathy with last EF of 30 to 35% as per 2D echo done on August 29, 2021 7. Morbid obesity 8. Obstructive sleep apnea 9. Fluid overload-improving 10. Hyper natremia likely due to decreased free water intake 11. Pericardial effusion status post Pericardiocentesis with about 35 to 40 cc of dark fluid drained on August 29, 2021 12. Multiple punctate acute infarcts likely embolic. Neurology following. Plan: 1. Will hold diuretics for now. 2. Will give 1 dose of zoledronic acid 3. Recommend getting hematology oncology on board due to her hypercalcemia and rule out any other causes. Patient will require endocrinology follow-up as outpatient as well. 4. Agree with stopping vitamin D and calcium supplements for the time being 5. Increase free water intake 6. Strict I's and O's 7. Continue PT/OT and encourage mobilization 8. Avoid any nephrotoxic agents as much as possible 9. BMP in the morning 10. Keep Stone for now 11. Will follow Nutrition Please ensure that patient is on a renal diet/TF. Avoid nephrotoxic drugs/contrast exposure. Luis Felipe Hinson MD Attending Physician Statement I have discussed the care of this patient, including pertinent history and exam findings, with the Resident/RECREATION SUPERVISOR. I have reviewed and edited the salguero elements of all parts of the encounter with the Resident/RECREATION SUPERVISOR. I agree with the assessment, plan and orders as documented by the Resident/RECREATION SUPERVISOR. Talib Saldaña MD [facility] This note is created with the assistance of a speech-recognition program. While intending to generate a document that actually reflects the content of the visit, no guarantees can be provided that every mistake has been identified and corrected by editing. Images from the original note were not included. [facility] Office: [phone] Sony Raymond DO, Brodie Campos DO, Skip Diggs DO, Rubén Swain DO, Lee Ann Saldaña MD, Love Cortez MD, Sultana Harley MD, Solange Mercer MD, Jennifer Guo MD, Augusto Santizo MD, Lukas Angulo MD, Avelino Kent DO, Yanelis Grijalva MD, Fly Zapata DO, Jeaneth Begum MD, John Ricks MD, Madison Raymond DO, Nasra Schulte MD, Alessio Bhat MD, Jerry Davis DO, Justin Gaines MD, Yan Feliciano MD, Mayra Chicas, RECREATION SUPERVISOR, Karlie Kenney, RECREATION SUPERVISOR, Omkar Colunga, RECREATION SUPERVISOR, Riri Serna, RECREATION SUPERVISOR, Desire Harley, RECREATION SUPERVISOR, Ariel Stewart, RECREATION SUPERVISOR, Ben Cesar PA-C, Jennifer Magaña, UMESH, Patricia Harrington, RECREATION SUPERVISOR, Pauline Charles, RECREATION SUPERVISOR, Kelli Sarah, RECREATION SUPERVISOR, Sherron Ngo, SUPERVISOR [employer], Kellen Mabry, UMESH, Nyasia Lea, JOSE, Elizabeth Cummings, JOSE, Kellie Mora, RECREATION SUPERVISOR [facility] IN-PATIENT SERVICE [facility] Progress Note 09/09/2021 9:30 AM Name: Elias Walker Acct: [id number] Room: [facility]/0418-02 Day: 11 Admit Date: 08/29/2021 1:02 AM PCP: No primary care provider on file. Code Status: Full Code Subjective: C/C: Chief Complaint Patient presents with Shortness of Breath [facility], cardiac tamponade Chest Pain Interval History Status: improved. Pt seen and evaluated this morning. He is feeling better. He is more lucid daily. He ate breakfast this morning. He has no new neurologic complaints. He is denying any new complaints. Brief History: 36 year-old male who presented to OSH with hypertension and shortness of breath. Found to have pericardial effusion and sent to [facility] for further eval. He underwent pericardiocentesis with only 37 cc of dark fluid removed. He subsequently developed respiratory failure and was intubated. He had a positive blood culture (1/2) on 08/30 for group C strep. Repeat cultures on 08/31 negative. He also grew MRSA in his sputum. He developed neurologic deficits and underwent MRI which revealed multifocal infarcts. His CESAR was negative and EF maintained at 50%. No evidence of atrial fibrillation was appreciated. Additionally, he developed OZZIE with peak creatinine of 1.99. Nephrology was consulted and his OZZIE was attributed to ATN in the setting of sepsis. It is unclear what his baseline creatinine is as his last labs were from 2016. Interestingly, he was found to have hypercalcemia and significantly elevated PTH. He was administered calcitonin and a parathyroid nuclear scan was performed, which was unremarkable. He was treated initially with cefepime and vancomycin from 08/30 - 09/02 before being transitioned to ceftaroline on 09/03, which was further de-escalated to rocephin on 09/06. He will need IV rocephin through 09/28. He was extubated on 09/06 and transitioned to the medicine floor. 09/08: Pt continued to have low grade fever. It was unclear why he developed multifocal infarcts. We obtained an MRA of the head and neck which was unremarkable. His rheumatologic work-up was negative. CESAR negative and EF maintained with no evidence of atrial fibrillation as described above. Most likely diagnosis is septic emboli. Review of Systems: Constitutional: negative for chills, fevers, sweats Respiratory: negative for cough, dyspnea on exertion, shortness of breath, wheezing Cardiovascular: negative for chest pain, chest pressure/discomfort, lower extremity edema, palpitations Gastrointestinal: negative for abdominal pain, constipation, diarrhea, nausea, vomiting Neurological: negative for dizziness, headache Medications: Allergies: Allergies Allergen Reactions Food Watermelon, Honeydew, Cantelope Tomato Current Meds: Scheduled Meds: carvedilol 25 mg Oral BID NIFEdipine 30 mg Oral Daily cefTRIAXone (ROCEPHIN) IV 2,000 mg IntraVENous Q24H [Held by provider] furosemide 40 mg IntraVENous Daily [Held by provider] vitamin D 50,000 Units Per NG tube Weekly QUEtiapine 25 mg Per NG tube Nightly heparin (porcine) 5,000 Units SubCUTAneous 3 times per day sodium chloride flush 5-40 mL IntraVENous 2 times per day Continuous Infusions: sodium chloride Stopped (09/07/21 0405) PRN Meds: labetalol, bisacodyl, sodium chloride flush, sodium chloride, ondansetron OR ondansetron, polyethylene glycol, acetaminophen OR acetaminophen Data: Past Medical History: has a past medical history of Priapism, unspecified. Social History: reports that he has been smoking. He has a 15.00 pack-year smoking history. He does not have any smokeless tobacco history on file. He reports current alcohol use. He reports that he does not use drugs. Family History: No family history on file. Vitals: BP 122/77 Pulse 80 Temp 97.5 F (36.4 C) (Temporal) Resp 26 Ht 5' 4 (1.626 m) Wt 225 lb 12 oz (102.4 kg) SpO2 96% BMI 38.75 kg/m Temp (24hrs), Av.3 F (36.8 C), Min:97.5 F (36.4 C), Max:98.8 F (37.1 C) No results for input(s): POCGLU in the last 72 hours. I/O (24Hr): Intake/Output Summary (Last 24 hours) at 09/09/2021 0930 Last data filed at 09/09/2021 0915 Gross per 24 hour Intake 955.9 ml Output 1250 ml Net -294.1 ml Labs: Hematology: Recent Labs 09/07/21 0553 09/08/21 0643 09/09/21 0558 WBC 9.7 9.9 9.2 RBC 4.63 4.44 4.57 HGB 13.3 12.7* 13.0 HCT 40.8 40.7 40.3* MCV 88.1 91.7 88.2 MCH 28.7 28.6 28.4 MCHC 32.6 31.2 32.3 RDW 12.5 12.7 12.2 PLT 428 417 401 MPV 10.0 10.7 11.5 SEDRATE -- 60* -- CRP -- 29.4* -- Chemistry: Recent Labs 09/07/21 0553 09/07/21 0553 09/07/21 1753 09/08/21 0643 09/08/21 1328 NA 150* < > 145* 144 139 K 3.9 < > 3.5* 3.2* 3.7 CL 110* < > 106 106 102 CO2 26 < > 27 27 23 GLUCOSE 121* < > 124* 130* 141* BUN 46* < > 42* 40* 37* CREATININE 1.74* < > 1.99* 1.95* 1.82* MG -- -- 2.4 2.3 -- ANIONGAP 14 < > 12 11 14 LABGLOM 44* < > 38* 39* 42* GFRAA 54* < > 46* 47* 51* CALCIUM 10.5* < > 10.3 10.5* 10.4 CAION 1.46* -- -- -- -- < > = values in this interval not displayed. Recent Labs 09/08/21 0643 TSH 0.82 ABG: Lab Results Component Value Date/Time POCPH 7.392 09/06/2021 04:41 AM POCPCO2 48.2 09/06/2021 04:41 AM POCPO2 98.0 09/06/2021 04:41 AM POCHCO3 29.3 09/06/2021 04:41 AM NBEA 2 09/03/2021 04:09 AM PBEA 4 09/06/2021 04:41 AM HNPC3PHS 98 09/06/2021 04:41 AM FIO2 40.0 09/06/2021 04:41 AM Lab Results Component Value Date/Time SPECIAL R HAND 10ML 09/08/2021 10:04 AM Lab Results Component Value Date/Time CULTURE NO GROWTH 12 HOURS 09/08/2021 10:04 AM Radiology: MRA HEAD WO CONTRAST Result Date: 09/08/2021 Unremarkable MRA head/neck without evidence for significant stenosis. Further evaluation with CTA of the head and neck may be helpful in further characterization. MRI CERVICAL SPINE WO CONTRAST Result Date: 09/04/2021 1. No cervical spinal cord lesion is identified. 2. Mild central spinal canal narrowing at C6-C7 where there is a 2 mm right paracentral disc protrusion. 3. The orogastric tube is coiled in the patient's pharynx. This could be repositioned for more optimal placement. XR CHEST PORTABLE Result Date: 09/04/2021 Supportive tubing is stable. Mild improvement in bilateral airspace disease, pulmonary edema favored over pneumonia. Small components of pleural effusion are possible. NM PARATHYORID W SPECT Result Date: 09/08/2021 No convincing evidence of parathyroid adenoma. XR ABDOMEN FOR NG/OG/NE TUBE PLACEMENT Result Date: 09/02/2021 Enteric tube with the tip in the stomach. The side port may be at the GE junction. Recommend advancement by 3 cm MRA NECK WO CONTRAST Result Date: 09/08/2021 Unremarkable MRA head/neck without evidence for significant stenosis. Further evaluation with CTA of the head and neck may be helpful in further characterization. MRI BRAIN WO CONTRAST Result Date: 09/04/2021 1. Punctate acute infarcts are noted in the cerebral hemispheres, right cerebral peduncle, and central/left paramidline of the albino. Given the multivessel distribution, these are concerning for embolic infarcts. 2. 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 3. Scattered paranasal sinus disease with bilateral mastoid effusions, likely related to intubation. 4. Small area of blooming artifact associated with an infarct in the posterior deep white matter of the right frontal lobe is likely related to sequela of remote hemorrhage. Physical Examination: General appearance: alert, cooperative and no distress Mental Status: oriented to person, place and time and normal affect Lungs: clear to auscultation bilaterally, normal effort Heart: regular rate and rhythm, no murmur Abdomen: soft, nontender, nondistended, normal bowel sounds, no masses, hepatomegaly, splenomegaly Extremities: no edema, redness, tenderness in the calves Skin: no gross lesions, rashes, induration Assessment: Hospital Problems Last Modified POA * (Principal) Cardiac tamponade 08/29/2021 Yes Acute respiratory failure with hypoxia (HCC) 08/29/2021 Yes Acute heart failure (HCC) 08/30/2021 Yes Acute pulmonary edema (HCC) 08/30/2021 Yes Pericardial effusion with cardiac tamponade 08/30/2021 Yes Pericardial effusion 08/30/2021 Yes Pleural effusion 08/30/2021 Yes Rhinovirus infection 09/01/2021 Yes Fever 09/01/2021 Yes Sepsis due to Streptococcus species without acute organ dysfunction (HCC) 09/01/2021 Yes Staphylococcus aureus pneumonia (HCC) 09/01/2021 Yes Delirium 09/03/2021 Yes Cerebral septic emboli (HCC) 09/06/2021 Yes Acute kidney injury (HCC) 09/07/2021 Yes Hypercalcemia 09/06/2021 Yes Cerebral embolism 09/08/2021 Yes Plan: #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 CESAR negative. EF is maintained at 50% so unlikely to be embolic from CHF. No documentation of atrial fibrillation. 1 blood culture positive for strep C from 08/30, repeats negative. Hepatitis, ANCA, MARIO, RF, anti-cardiolipin Ab, HIV negative. - MRA of head and neck unremarkable - appreciate neurology recommendations - rheumatology following #Sepsis, unclear source. Strep C bacteremia - continue rocephin as ordered per ID, discussed with Dr. Henao. Will have midline placed. Will need rocephin throught 09/28 - repeat blood cultures 09/08 with NGTD #OZZIE secondary to ATN - nephro following. Creatinine improving. Lasix discontinued. Will discuss with nephrology if we can remove stone. Strict I/O. #Hypertension - work-up for secondary causes of hypertension initiated. Renal arterial duplex was a poor study and did not yield much. TSH unremarkable. Aldosterone, metanephrines pending. Blood pressure much improved with initiation of nifedipine. Continue carvedilol 25 mg bid and nifedipine ER 30 mg daily #Hyperparathyroidism/hypercalcemi a - NM parathyroid scan unremarkable. Calcium improved. Check PTHrp. Will continue to monitor. #Hypokalemia - resolved #Pericardial effusion - unclear etiology. Reviewed fluid studies. Resolved Ben Cesar PA-C 09/09/2021 9:30 AM Images from the original note were not included. [facility] Progress Note Elias Walker Date: 09/09/2021 LOS: 11 Reason for F/U : Febrile illness Impression : 1. Acute hypoxic respiratory failure Extubated 09/06/2021 2. Methicillin-resistant Staph aureus pneumonia 3. Group C streptococcal sepsis 1 of 2 sets (08/30/2021) group C streptococcal sepsis which is typically associated with skin infections Repeat blood cultures 08/31/2021 are negative 4. Hypertensive emergency resolved 5. Pericardial effusion status post pericardiocentesis with 35 to 40 cc of fluid drained 08/29/2021 CESAR done 09/02/2021 without any vegetations 6. Rhinovirus/enteroviral infection 7. Pulmonary edema 8. Intermittent fevers - unclear etiology 9. Multiple punctate acute infarcts multivessel distribution suggesting septic embolic phenomena unclear etiology At this point in time the source of the embolic disease is not clear given he only had 1 out of 2 sets of blood cultures positive and echocardiogram did not show any stigmata to suggest endocarditis. 10. Obesity with obstructive sleep apnea 11. Acute kidney injury 12. Hypercalcemia Recommendations: The patient initially was on cefepime and vancomycin 08/30-09/02 Switched to ceftaroline 09/03/2021 due to concerns for OZZIE The patient has had 7 days of antibiotics to cover the MRSA in the sputum and ceftaroline was stopped 09/06/2021 Continue Rocephin to complete 28 days of antibiotic coverage through 09/28/2021 for the streptococcal sepsis with embolic phenomena Overall the patient's mentation is improved and he is verbalizing/communicating much better Infection Control Recommendations: Walker precautions Discharge Planning: Estimated Length of IV antimicrobials: 09/28/2021 Patient will need Midline Catheter Insertion/ PICC line Insertion: No Patient will need: Home IV , Infusion Center, SNF, LTAC: Undetermined Patient willneed outpatient wound care: No Medical Decision making / Summary of Stay: Elias Walker is a 36 y.o.-year-old male who was initially admitted on 08/29/2021. Elias is currently intubated and the history is obtained from his girlfriend who is sitting at bedside and from reviewing the chart. Elias has no insurance and does not typically follow with physicians and his girlfriend reports that the only medication that he takes is a Zyrtec for some seasonal allergies. She also reports that he does typically get recurrent cellulitis in his left lower extremity, and that he recently had a viral illness about 2 weeks ago which she also contracted and reports having some rhinorrhea and headaches. She also reports that about a week ago he had a soft tissue abscess in his right hand which he was able to express some purulence out of The patient is obese and there is concern for obstructive sleep apnea He was also recently diagnosed with hypertension started on Lopressor. The patient presented to the emergency department complaining of shortness of breath and work-up in the seem to suggest CHF and a CT and ultrasound showed possible RA collapse with pericardial effusion at an outside facility suggested tamponade The patient was transferred here for further evaluation due to the concerns for tamponade and in the ED was intubated for airway protection and noted to be hypertensive started on nitroglycerin drip He has since been seen by cardiology and an echocardiogram showed moderate pericardial effusion and technically challenging evaluation there was no evidence of tamponade noted. 35 to 40 cc of fluid drained at pericardiocentesis in the emergency department. The patient is being treated for pulmonary edema and during the hospital stay he has been noted to have had fevers with a T-max of 101.3 degrees and was started on empiric antimicrobial therapy and I was asked to evaluate and help with antibiotic choice. The patient did undergo a CESAR that did not show any evidence of valvular heart disease/endocarditis The patient did have a new finding of bilateral Babinski's by the neurology service on 09/04/2021 had MRI of the brain done that showed multi vessel punctate acute infarcts There is a C6-C7 paracentral disc protrusion with some mild stenosis The patient was extubated 09/06/2021 MRA imaging of the head done on 09/08/21 without any significant findings. The nuclear medical scan of the parathyroids without any significant findings either done looking for a adenoma given the hypercalcemia The patient was seen by the neurology service and there was low suspicion for any underlying autoimmune illness or vasculitis. He just does not have enough symptoms or signs to suggest that. Moreover, his serology is entirely negative. His CRP was elevated on admission at 92 but has gone down to 29 with antibiotics. This is mostly secondary to infection. The strong pulses in the bilateral radial and dorsalis pedis and the normal MRA of his brain and neck stand against large vessel vasculitis such as Takayasu's I doubt any hypercoagulable state. I will, however check his phospholipid antibodies and beta-2 glycoprotein antibodies. Has hypercalcemia with elevated PTH that might be consistent with primary hyperparathyroidism. He might benefit from endocrinology evaluation as an outpatient Current evaluation:09/09/2021 BP (!) 145/89 Pulse 74 Temp 97.5 F (36.4 C) (Temporal) Resp 22 Ht 5' 4 (1.626 m) Wt 225 lb 12 oz (102.4 kg) SpO2 96% BMI 38.75 kg/m Temperature Range: Temp: 97.5 F (36.4 C) Temp Av.3 F (36.8 C) Min: 97.5 F (36.4 C) Max: 98.8 F (37.1 C) The patient is seen and evaluated at bedside he is awake and alert in no acute distress. He is able to follow commands and able to hold a conversation. He clearly has some issues with his memory as he had difficulty naming who he lives with. No subjective fevers or chills. No abdominal pain nausea vomiting or diarrhea. Review of Systems Constitutional: Negative. Respiratory: Negative. Cardiovascular: Negative. Gastrointestinal: Negative. Genitourinary: Negative. Musculoskeletal: Negative. Allergic/Immunologic: Negative. Psychiatric/Behavioral: Positive for decreased concentration. Physical Examination : Physical Exam Constitutional: Appearance: He is well-developed. He is obese. HENT: Head: Normocephalic and atraumatic. Cardiovascular: Rate and Rhythm: Normal rate. Heart sounds: Normal heart sounds. No friction rub. No gallop. Pulmonary: Effort: Pulmonary effort is normal. Breath sounds: Normal breath sounds. No wheezing. Abdominal: General: Bowel sounds are normal. Palpations: Abdomen is soft. There is no mass. Tenderness: There is no abdominal tenderness. Musculoskeletal: Cervical back: Neck supple. Lymphadenopathy: Cervical: No cervical adenopathy. Skin: General: Skin is warm and dry. Neurological: Mental Status: He is alert. Laboratory data: I have independently reviewed the followinglabs: CBC with Differential: Recent Labs 09/08/21 0643 09/09/21 0558 WBC 9.9 9.2 HGB 12.7* 13.0 HCT 40.7 40.3* PLT 417 401 LYMPHOPCT 23* 34 MONOPCT 10 11 BMP: Recent Labs 09/07/21 1753 09/07/21 1753 09/08/21 0643 09/08/21 1328 NA 145* < > 144 139 K 3.5* < > 3.2* 3.7 CL 106 < > 106 102 CO2 27 < > 27 23 BUN 42* < > 40* 37* CREATININE 1.99* < > 1.95* 1.82* MG 2.4 -- 2.3 -- < > = values in this interval not displayed. Hepatic Function Panel: No results for input(s): PROT, LABALBU, BILIDIR, IBILI, BILITOT, ALKPHOS, ALT, AST in the last 72 hours. Lab Results Component Value Date/Time PROCAL 0.17 08/30/2021 10:34 AM PROCAL 0.12 08/29/2021 08:07 AM Lab Results Component Value Date/Time CRP 29.4 09/08/2021 06:43 AM CRP 92.0 08/30/2021 10:34 AM Lab Results Component Value Date SEDRATE 60 (H) 09/08/2021 No results found for: DDIMER No results found for: FERRITIN No results found for: LDH No results found for: FIBRINOGEN Results in Past 30 Days Result Component Current Result Ref Range Previous Result Ref Range SARS-CoV-2, Rapid Not Detected (09/08/2021) Not Detected Not Detected (08/30/2021) Not Detected Lab Results Component Value Date/Time COVID19 Not Detected 09/08/2021 10:23 AM COVID19 Not Detected 08/30/2021 11:15 AM No results for input(s): VANCOTROUGH in the last 72 hours. Imaging Studies: MRA OF THE HEAD WITHOUT CONTRAST; MRA OF THE NECK WITHOUT CONTRAST 09/08/2021 12:05 pm: Impression Unremarkable MRA head/neck without evidence for significant stenosis. Further evaluation with CTA of the head and neck may be helpful in further characterization. NUCLEAR MEDICINE PARATHYROID SCINTIGRAPHY WITH SPECT 09/08/2021 Impression No convincing evidence of parathyroid adenoma. MRI OF THE CERVICAL SPINE WITHOUT CONTRAST 09/04/2021 12:34 pm Impression 1. No cervical spinal cord lesion is identified. 2. Mild central spinal canal narrowing at C6-C7 where there is a 2 mm right paracentral disc protrusion. 3. The orogastric tube is coiled in the patient's pharynx. This could be reposition for more optimal placement. MRI OF THE BRAIN WITHOUT CONTRAST 09/04/2021 12:34 pm Impression 1. Punctate acute infarcts are noted in the cerebral hemispheres, right cerebral peduncle, and central/left paramidline of the albino. Given the multivessel distribution, these are concerning for embolic infarcts. 2. 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 3. Scattered paranasal sinus disease with bilateral mastoid effusions, likely related to intubation. 4. Small area of blooming artifact associated with an infarct in the posterior right frontal lobe, deep white matter, likely related to sequela of remote hemorrhage. ONE XRAY VIEW OF THE CHEST 09/04/2021 5:51 am Impression Supportive tubing is stable. Mild improvement in bilateral airspace disease, pulmonary edema favored over pneumonia. Small components of pleural effusion are possible. CESAR findings: 09/02/2021 LA: Normal SKIP: No thrombus RA: Normal RV: Normal LV: Normal Estimated LVEF: 50% Aorta: Mild atheromatous disease arch Pericardium: Small pericardial effusion Septum: No intracardiac shunt via color Doppler. Valves: Mitral Valve: Structurally normal. Mild to moderate regurgitation is identified. Aortic Valve: The aortic valve is trileaflet and opens adequately. No regurgitiation is identified. Tricuspid valve: Structurally normal. No regurgitation is identified. Pulmonary valve: Normal. No significant regurgitation No valvular vegetations or thrombus identified. Summary: 1. A CESAR was performed without complications. 2. LVEF 50% 3. No thrombus or valvular vegetation identified 4. No intracardiac shunt via color Doppler. 5. There were no complications encountered. Cardiovascular Diseases Fellow [facility] ONE XRAY VIEW OF THE CHEST 09/02/2021 6:50 am Impression Stable support lines Slight improvement in still moderate diffuse bilateral alveolar infiltrates related to improving edema and or infection with decrease in now small right pleural effusion and moderate left basilar pleuroparenchymal process MRI OF THE ABDOMEN WITHOUT CONTRAST, 09/01/2021 1:48 pm Impression 1. Optimal definitive characterization of renal lesions requires utilization of IV contrast. Bilateral circumscribed renal lesions which would be compatible with simple renal cysts on this unenhanced study Largest in the anteromedial lower pole right kidney 3.5 cm. This is probably what is partially imaged on the recent ultrasound. 2. The appears to be some pelvic ascites as seen on the coronal images. Also of note is some body wall edema, small right pleural effusion and cardiomegaly. Cultures: Culture, Blood 1 [[id number]] Collected: 08/31/21 1515 Order Status: Completed Specimen: Blood Updated: 09/05/21 1553 Specimen Description .BLOOD Culture NO GROWTH 5 DAYS Culture, Blood 1 [[id number]] Collected: 08/31/21 1519 Order Status: Completed Specimen: Blood Updated: 09/05/21 1531 Specimen Description .BLOOD Culture NO GROWTH 5 DAYS Culture, Body Fluid [[id number]] (Abnormal) Collected: 08/29/21 0342 Order Status: Completed Specimen: Body Fluid Updated: 09/04/21 1436 Specimen Description .FLUID .PERICARDIAL FLUID Direct Exam RARE NEUTROPHILS Abnormal NO BACTERIA SEEN Gram stain made from cytocentrifuged specimen. Organisms and cells will be concentrated. Culture NO GROWTH 6 DAYS Culture, Blood 1 [[id number]] Collected: 08/30/21 0953 Order Status: Completed Specimen: Blood Updated: 09/04/21 1024 Specimen Description .BLOOD Special Requests 10ML R ARM Culture NO GROWTH 5 DAYS Culture, Blood 1 [[id number]] (Abnormal) Collected: 08/30/21 1001 Order Status: Completed Specimen: Blood Updated: 08/31/21 2337 Specimen Description .BLOOD Special Requests 20ML R WRIST Culture POSITIVE Blood Culture Abnormal DIRECT GRAM STAIN FROM BOTTLE: GRAM POSITIVE COCCI IN CHAINS Detected: Streptococcus species (not S. agalactiae (Group B), S. pneumoniae, or S. pyogenes (Group A)) Culture Results to Follow Methodology- Polymerase Chain Reaction (PCR) STREPTOCOCCI, BETA HEMOLYTIC GROUP C Abnormal (NOTE) Direct Gram Stain from bottle and Polymerase Chain Reaction (PCR) results called to and read back by: BAUTISTA Greenfield at 0425 on 08/31/21 Culture, Respiratory [[id number]] (Abnormal) Collected: 08/30/21 2341 Order Status: Completed Specimen: Endotracheal Updated: 09/02/21 0828 Specimen Description .ENDOTRACHEAL Direct Exam >10, <25 NEUTROPHILS/LPF < 10 EPITHELIAL CELLS/LPF PREDOMINANT ORGANISM: GRAM POSITIVE COCCI IN CLUSTERS Abnormal MIXED BACTERIAL MORPHOTYPES ALSO PRESENT ON GRAM STAIN. Abnormal Culture METHICILLIN RESISTANT STAPHYLOCOCCUS AUREUS HEAVY GROWTH Abnormal NORMAL RESPIRATORY JAMES LIGHT GROWTH Methicillin-Resistant Staphylococcus aureus (1) Antibiotic Interpretation Microscan Method Status penicillin Resistant >=0.5 BACTERIAL SUSCEPTIBILITY PANEL JULIÁN Final clindamycin Sensitive <=0.25 BACTERIAL SUSCEPTIBILITY PANEL JULIÁN Final erythromycin Sensitive <=0.25 BACTERIAL SUSCEPTIBILITY PANEL JULIÁN Final gentamicin Sensitive <=0.5 BACTERIAL SUSCEPTIBILITY PANEL JULIÁN Final Gentamicin is used only in combination with other active agents that test susceptible. levofloxacin Sensitive <=0.12 BACTERIAL SUSCEPTIBILITY PANEL JULIÁN Final oxacillin Resistant >=4 BACTERIAL SUSCEPTIBILITY PANEL JULIÁN Final tetracycline Sensitive <=1 BACTERIAL SUSCEPTIBILITY PANEL JULIÁN Final trimethoprim-sulfamethoxazole Sensitive <=10 BACTERIAL SUSCEPTIBILITY PANEL JULIÁN Final vancomycin Sensitive 1 BACTERIAL SUSCEPTIBILITY PANEL JULIÁN Final Specimen Collected: 08/30/21 23:41 Last Resulted: 09/02/21 08:28 MRSA DNA Probe, Nasal [[id number]] (Abnormal) Collected: 08/29/21 0813 Order Status: Completed Specimen: Nasal Updated: 08/30/21 1509 Specimen Description .NASAL SWAB MRSA, DNA, Nasal POSITIVE: MRSA DNA detected by nucleic acid amplification. Abnormal Comment: Results should be used as an adjunct to nosocomial control efforts to identify patients needing enhanced precautions. The test is not intended to identify patients with staphylococcal infections. Results should not be used to guide or monitor treatment for MRSA infections. Respiratory Panel, Molecular, with COVID-19 (Restricted: peds pts or suitable admitted adults) [[id number]] (Abnormal) Collected: 08/30/21 1115 Order Status: Completed Specimen: Nasopharyngeal Swab Updated: 08/30/21 1203 Specimen Description .NASOPHARYNGEAL SWAB Adenovirus PCR Not Detected Coronavirus 229E PCR Not Detected Coronavirus HKU1 PCR Not Detected Coronavirus NL63 PCR Not Detected Coronavirus OC43 PCR Not Detected SARS-CoV-2, PCR Not Detected Human Metapneumovirus PCR Not Detected Rhino/Enterovirus PCR DETECTED Abnormal Influenza A by PCR Not Detected Influenza B by PCR Not Detected Parainfluenza 1 PCR Not Detected Parainfluenza 2 PCR Not Detected Parainfluenza 3 PCR Not Detected Parainfluenza 4 PCR Not Detected Resp Syncytial Virus PCR Not Detected Bordetella Parapertussis Not Detected B Pertussis by PCR Not Detected Chlamydia pneumoniae By PCR Not Detected Mycoplasma pneumo by PCR Not Detected Comment: Performed by multiplexed nucleic acid assay. Medications: carvedilol 25 mg Oral BID NIFEdipine 30 mg Oral Daily cefTRIAXone (ROCEPHIN) IV 2,000 mg IntraVENous Q24H [Held by provider] furosemide 40 mg IntraVENous Daily [Held by provider] vitamin D 50,000 Units Per NG tube Weekly QUEtiapine 25 mg Per NG tube Nightly heparin (porcine) 5,000 Units SubCUTAneous 3 times per day sodium chloride flush 5-40 mL IntraVENous 2 times per day [facility] Ashish Henao MD Jiff messaging OFFICE: Thank you for allowing us to participate in the care of this patient. Please call with questions. This note iscreated with the assistance of a speech recognition program. While intending to generate a document that actually reflects the content of the visit, the document can still have some errors including those of syntax andsound a like substitutions which may escape proof reading. In such instances, actual meaning can be extrapolated by contextual diversion. Patient is awake, talking, and oriented x 3. Asking for blankets and talking about his dog. Will continue to monitor. Patient has remained in bed and sleeping during the duration of the writers shift. Patient checked Q1h for bowel movements and offered turns to patient. Patient declined and has remained bowel continent thus far. Patient's girlfriend called up for report on patient. Cage Shift Manager busy in another room. Patient's girlfriend told community resource consultant that she wants to bring pizza rolls up to the unit to be heated for patient because he does not like hospital food. legal billing clerk advised patient's girlfriend to call back in the morning for this question, the request will be forwarded. Renal Progress Note Patient : Elias Walker; 36 y.o. Location: [id number]/0418-02 Attending: Solange Mercer MD Admit Date: 08/29/2021 Hospital Day: 10 Subjective: Patient is initially transferred from [facility] due to complaints of chest pain, had syncopal episode there found to be hypertensive, found to have pericardial effusion transferred to [facility] underwent pericardiocentesis with 37 cc of dark fluid drainage, had respiratory failure required mechanical ventilation admitted to the ICU. Further work-up showed embolic strokes in MRI, and encephalopathy, hypertensive emergency, sepsis with blood culture positive for beta-hemolytic streptococci group C, rhinovirus/enterovirus infection, developed acute kidney injury along with hypercalcemia with elevated PTH levels. Nephrology following due to acute kidney injury. Patient was seen and examined. No new issues reported overnight. Patient was transferred out of ICU to stepdown unit now. Primary did check MRA neck and head 09/08/2021 which was unremarkable. Parathyroid nuclear medicine scan 09/08/2021 showed no convincing evidence of parathyroid adenoma. Most recent creatinine showed improvement of 1.83 mg/dl today. Calcium was improved to 10.4. Sodium 139, potassium 3.7, chloride 102, bicarb 23, BUN 37. Patient's PTH on 09/07/2021 was 141.5. Urine output documented as about 2.6 L in the last 24 hours. Patient did get Lasix 40 mg IV yesterday, morning dose was held today. Patient was getting back on fluids D5W at 50 cc an hour. Blood culture 08/30/2021 was positive for beta-hemolytic streptococci group C. Respiratory panel 08/30/2021 positive for Rhino/enterovirus PCR. Currently on IV antibiotics. MRI brain 09/04/2021: Punctate acute infarcts in the cerebral hemispheres, right cerebral peduncle and central/left paramidline of the albino. Concern for embolic infarct. Small chronic infarcts noted in the centrum semiovale bilaterally, right putamen and right caudate head. Neurology following. Outpatient Medications: Medications Prior to Admission: loratadine-pseudoephedrine (CLARITIN-D 24 HOUR) 10-240 MG per extended release tablet, Take 1 tablet by mouth daily cephALEXin (KEFLEX) 500 MG capsule, Take 1 capsule by mouth 3 times daily docusate sodium (COLACE) 100 MG capsule, Take 1 capsule by mouth 2 times daily as needed for Constipation oxyCODONE-acetaminophen (PERCOCET) 5-325 MG per tablet, Take 1-2 tablets by mouth every 4 hours as needed for Pain Current Medications: Scheduled Meds: carvedilol 25 mg Oral BID NIFEdipine 30 mg Oral Daily cefTRIAXone (ROCEPHIN) IV 2,000 mg IntraVENous Q24H [Held by provider] furosemide 40 mg IntraVENous Daily [Held by provider] vitamin D 50,000 Units Per NG tube Weekly QUEtiapine 25 mg Per NG tube Nightly heparin (porcine) 5,000 Units SubCUTAneous 3 times per day sodium chloride flush 5-40 mL IntraVENous 2 times per day Continuous Infusions: dextrose 50 mL/hr at 09/08/21 0902 sodium chloride Stopped (09/07/21 0405) PRN Meds: labetalol, bisacodyl, sodium chloride flush, sodium chloride, ondansetron OR ondansetron, polyethylene glycol, acetaminophen OR acetaminophen Input/Output: I/O last 3 completed shifts: In: 1416.4 [P.O.:400; I.V.:1016.4] Out: 3335 [Urine:3335]. Patient Vitals for the past 96 hrs (Last 3 readings): Weight 09/07/21 0600 225 lb 12 oz (102.4 kg) 09/06/21 0600 225 lb 12 oz (102.4 kg) 09/05/21 0432 231 lb 11.3 oz (105.1 kg) Vital Signs: Temperature: Temp: 98.8 F (37.1 C) TMax: Temp (24hrs), Av.7 F (37.1 C), Min:97.7 F (36.5 C), Max:100.1 F (37.8 C) Respirations: Resp: 29 Pulse: Heart Rate: 90 BP: BP: (!) 145/90 BP Range: Systolic (24hrs), Av , Min:119 , Max:194 Diastolic (24hrs), Av, Min:60, Max:122 Physical Examination: General: AAO x 3, speaking in full sentences, no accessory muscle use. HEENT: Atraumatic, normocephalic, no throat congestion, moist mucosa. Eyes: Pupils equal, round and reactive to light, EOMI. Neck: Supple Chest: Bilateral vesicular breath sounds, no rales or wheezes. Cardiac: S1 S2 RR, no murmurs, gallops or rubs. Abdomen: Soft, non-tender, no masses or organomegaly, BS audible. : No suprapubic or flank tenderness. Neuro: AAO x 3, No FND. SKIN: No rashes, good skin turgor. Extremities: No edema. Labs: Recent Labs 09/06/21 0523 09/07/21 0553 09/08/21 0643 WBC 9.7 9.7 9.9 RBC 4.45 4.63 4.44 HGB 12.8* 13.3 12.7* HCT 40.1* 40.8 40.7 MCV 90.1 88.1 91.7 MCH 28.8 28.7 28.6 MCHC 31.9 32.6 31.2 RDW 12.2 12.5 12.7 PLT 357 428 417 MPV 10.3 10.0 10.7 BMP: Recent Labs 09/07/21 1753 09/08/21 0643 09/08/21 1328 NA 145* 144 139 K 3.5* 3.2* 3.7 CL 106 106 102 CO2 27 27 23 BUN 42* 40* 37* CREATININE 1.99* 1.95* 1.82* GLUCOSE 124* 130* 141* CALCIUM 10.3 10.5* 10.4 MARIO: Lab Results Component Value Date/Time MARIO NEGATIVE 08/30/2021 10:34 AM SPEP: Lab Results Component Value Date/Time PROT 5.8 09/02/2021 12:25 PM ALBCAL 3.1 09/02/2021 12:25 PM ALBPCT 53 09/02/2021 12:25 PM LABALPH 0.4 09/02/2021 12:25 PM LABALPH 0.8 09/02/2021 12:25 PM A1PCT 7 09/02/2021 12:25 PM A2PCT 13 09/02/2021 12:25 PM LABBETA 0.9 09/02/2021 12:25 PM BETAPCT 16 09/02/2021 12:25 PM GAMGLOB 0.7 09/02/2021 12:25 PM GGPCT 11 09/02/2021 12:25 PM PATH ELECTRONICALLY SIGNED. ZOE STERN M.D. 09/02/2021 12:25 PM PATH ELECTRONICALLY SIGNED. ZOE STERN M.D. 09/02/2021 12:25 PM C3: Lab Results Component Value Date/Time C3 183 09/02/2021 12:25 PM C4: Lab Results Component Value Date/Time C4 29 09/02/2021 12:25 PM MPO ANCA: Lab Results Component Value Date/Time MPO <0.3 08/30/2021 10:34 AM PR3 ANCA: Lab Results Component Value Date/Time PR3 0.9 08/30/2021 10:34 AM Hep BsAg: Lab Results Component Value Date/Time HEPBSAG NONREACTIVE 09/02/2021 12:25 PM Hep C AB: Lab Results Component Value Date/Time HEPCAB NONREACTIVE 09/02/2021 12:25 PM Urinalysis/Chemistries: Lab Results Component Value Date/Time NITRU NEGATIVE 08/30/2021 10:36 AM COLORU Yellow 08/30/2021 10:36 AM PHUR 5.0 08/30/2021 10:36 AM WBCUA 20 TO 50 08/30/2021 10:36 AM RBCUA 2 TO 5 08/30/2021 10:36 AM SPECGRAV 1.020 08/30/2021 10:36 AM LEUKOCYTESUR MODERATE 08/30/2021 10:36 AM UROBILINOGEN Normal 08/30/2021 10:36 AM BILIRUBINUR NEGATIVE 08/30/2021 10:36 AM GLUCOSEU NEGATIVE 08/30/2021 10:36 AM KETUA NEGATIVE 08/30/2021 10:36 AM Urine Creatinine: Lab Results Component Value Date/Time LABCREA 129.7 09/02/2021 02:14 PM Radiology: Reviewed. Assessment: 1. Acute Kidney Injury nonoliguric likely secondary to ischemic ATN from sepsis, low flow state, underlying heart failure and further aggravated by nephrotoxic agents including ibuprofen, Bactrim and was recently receiving vancomycin as well. Exact baseline not available but seems to be currently running around 1.6-1.8 range. 2. Bacteremia/sepsis with Blood culture 08/30/2021 was positive for beta-hemolytic streptococci group C. 3. Respiratory panel 08/30/2021 positive for Rhino/enterovirus PCR. 4. Acute respiratory failure multifactorial requiring mechanical ventilation, now extubated. 5. Hypercalcemia likely PTH related and further complicated by use of calcium carbonate-cholecalciferol and ergocalciferol vs other etiologies. 6. Cardiomyopathy with last EF of 30 to 35% as per 2D echo done on 08/29/2021.. 7. Morbid obesity. 8. Obstructive sleep apnea. 9. Fluid overload-improving. 10. Hypernatremia likely due to decreased free water intake. 11. Vitamin D deficiency. 12. Pericardial effusion status post pericardiocentesis about 35 to 40 cc of fluid drained 08/29/2021. 13. Multiple punctate acute infarcts likely embolic. Neurology on board. Plan: 1. Agree with holding diuretics for now. 2. Continue monitor calcium levels, if numbers continue to be elevated, will likely require heme-onc consultation as well. 3. Agree with stopping vitamin D and calcium supplements for now. 4. Increase free water intake. 5. Can stop IV fluids. 6. Monitor strict I's and O's and renal function. 7. Avoid any further nephrotoxic agents as much as possible. 8. BMP in AM. 9. Keep stone in for now. 10. Will follow. Nutrition Please ensure that patient is on a renal diet/TF. Avoid nephrotoxic drugs/contrast exposure. Talib Saldaña MD [facility] This note is created with the assistance of a speech-recognition program. While intending to generate a document that actually reflects the content of the visit, no guarantees can be provided that every mistake has been identified and corrected by editing. Images from the original note were not included. [facility] Progress Note Elias Walker Date: 09/08/2021 LOS: 10 Reason for F/U : Febrile illness Impression : 1. Acute hypoxic respiratory failure Extubated 09/06/2021 2. Methicillin-resistant Staph aureus pneumonia 3. Group C streptococcal sepsis 1 of 2 sets (08/30/2021) group C streptococcal sepsis which is typically associated with skin infections Repeat blood cultures 08/31/2021 are negative 4. Hypertensive emergency resolved 5. Pericardial effusion status post pericardiocentesis with 35 to 40 cc of fluid drained 08/29/2021 CESAR done 09/02/2021 without any vegetations 6. Rhinovirus/enteroviral infection 7. Pulmonary edema 8. Intermittent fevers - unclear etiology 9. Multiple punctate acute infarcts multivessel distribution suggesting septic embolic phenomena unclear etiology At this point in time the source of the embolic disease is not clear given he only had 1 out of 2 sets of blood cultures positive and echocardiogram did not show any stigmata to suggest endocarditis. 10. Obesity with obstructive sleep apnea 11. Acute kidney injury 12. Hypercalcemia Recommendations: The patient initially was on cefepime and vancomycin 08/30-09/02 Switched to ceftaroline 09/03/2021 due to concerns for OZZIE The patient has had 7 days of antibiotics to cover the MRSA in the sputum and ceftaroline was stopped 09/06/2021 Continue Rocephin to complete 28 days of antibiotic coverage through 09/28/2021 for the streptococcal sepsis with embolic phenomena MRA imaging done today without any significant findings. The nuclear medical scan of the parathyroids without any significant findings either Overall the patient's mentation is improved and he is verbalizing/communicating much better Infection Control Recommendations: Walker precautions Discharge Planning: Estimated Length of IV antimicrobials: 09/28/2021 Patient will need Midline Catheter Insertion/ PICC line Insertion: No Patient will need: Home IV , Infusion Center, SNF, LTAC: Undetermined Patient willneed outpatient wound care: No Medical Decision making / Summary of Stay: Elias Walker is a 36 y.o.-year-old male who was initially admitted on 08/29/2021. Elias is currently intubated and the history is obtained from his girlfriend who is sitting at bedside and from reviewing the chart. Elias has no insurance and does not typically follow with physicians and his girlfriend reports that the only medication that he takes is a Zyrtec for some seasonal allergies. She also reports that he does typically get recurrent cellulitis in his left lower extremity, and that he recently had a viral illness about 2 weeks ago which she also contracted and reports having some rhinorrhea and headaches. She also reports that about a week ago he had a soft tissue abscess in his right hand which he was able to express some purulence out of The patient is obese and there is concern for obstructive sleep apnea He was also recently diagnosed with hypertension started on Lopressor. The patient presented to the emergency department complaining of shortness of breath and work-up in the seem to suggest CHF and a CT and ultrasound showed possible RA collapse with pericardial effusion at an outside facility suggested tamponade The patient was transferred here for further evaluation due to the concerns for tamponade and in the ED was intubated for airway protection and noted to be hypertensive started on nitroglycerin drip He has since been seen by cardiology and an echocardiogram showed moderate pericardial effusion and technically challenging evaluation there was no evidence of tamponade noted. 35 to 40 cc of fluid drained at pericardiocentesis in the emergency department. The patient is being treated for pulmonary edema and during the hospital stay he has been noted to have had fevers with a T-max of 101.3 degrees and was started on empiric antimicrobial therapy and I was asked to evaluate and help with antibiotic choice. The patient did undergo a CESAR that did not show any evidence of valvular heart disease/endocarditis The patient did have a new finding of bilateral Babinski's by the neurology service on 09/04/2021 had MRI of the brain done that showed multi vessel punctate acute infarcts There is a C6-C7 paracentral disc protrusion with some mild stenosis The patient was extubated 09/06/2021 Current evaluation:09/08/2021 BP (!) 187/111 Pulse (!) 101 Temp 100.1 F (37.8 C) (Temporal) Resp 27 Ht 5' 4 (1.626 m) Wt 225 lb 12 oz (102.4 kg) SpO2 94% BMI 38.75 kg/m Temperature Range: Temp: 100.1 F (37.8 C) Temp Av.8 F (37.1 C) Min: 97.7 F (36.5 C) Max: 100.1 F (37.8 C) The patient is seen and evaluated at bedside he is awake and alert in no acute distress. He is actually verbalizing much better today as compared to yesterday. No subjective fever or chills. No cough or shortness of breath. No abdominal pain nausea vomiting or diarrhea. No chest pains or palpitations. He does not report any new complaints and was complaining about having to do the MRI and keep still which was difficult for him. Review of Systems Constitutional: Negative. Respiratory: Negative. Cardiovascular: Negative. Gastrointestinal: Negative. Genitourinary: Negative. Musculoskeletal: Negative. Allergic/Immunologic: Negative. Physical Examination : Physical Exam Constitutional: Appearance: He is well-developed. He is obese. HENT: Head: Normocephalic and atraumatic. Cardiovascular: Rate and Rhythm: Normal rate. Heart sounds: Normal heart sounds. No friction rub. No gallop. Pulmonary: Effort: Pulmonary effort is normal. Breath sounds: Normal breath sounds. No wheezing. Abdominal: General: Bowel sounds are normal. Palpations: Abdomen is soft. There is no mass. Tenderness: There is no abdominal tenderness. Musculoskeletal: Cervical back: Neck supple. Lymphadenopathy: Cervical: No cervical adenopathy. Skin: General: Skin is warm and dry. Neurological: Mental Status: He is alert. Laboratory data: I have independently reviewed the followinglabs: CBC with Differential: Recent Labs 09/07/21 0553 09/08/21 0643 WBC 9.7 9.9 HGB 13.3 12.7* HCT 40.8 40.7 PLT 428 417 LYMPHOPCT 16* 23* MONOPCT 9 10 BMP: Recent Labs 09/07/21 1753 09/08/21 0643 NA 145* 144 K 3.5* 3.2* CL 106 106 CO2 27 27 BUN 42* 40* CREATININE 1.99* 1.95* MG 2.4 2.3 Hepatic Function Panel: No results for input(s): PROT, LABALBU, BILIDIR, IBILI, BILITOT, ALKPHOS, ALT, AST in the last 72 hours. Lab Results Component Value Date/Time PROCAL 0.17 08/30/2021 10:34 AM PROCAL 0.12 08/29/2021 08:07 AM Lab Results Component Value Date/Time CRP 29.4 09/08/2021 06:43 AM CRP 92.0 08/30/2021 10:34 AM Lab Results Component Value Date SEDRATE 60 (H) 09/08/2021 No results found for: DDIMER No results found for: FERRITIN No results found for: LDH No results found for: FIBRINOGEN Results in Past 30 Days Result Component Current Result Ref Range Previous Result Ref Range SARS-CoV-2, Rapid Not Detected (09/08/2021) Not Detected Not Detected (08/30/2021) Not Detected Lab Results Component Value Date/Time COVID19 Not Detected 09/08/2021 10:23 AM COVID19 Not Detected 08/30/2021 11:15 AM No results for input(s): VANCOTROUGH in the last 72 hours. Imaging Studies: MRA OF THE HEAD WITHOUT CONTRAST; MRA OF THE NECK WITHOUT CONTRAST 09/08/2021 12:05 pm: Impression Unremarkable MRA head/neck without evidence for significant stenosis. Further evaluation with CTA of the head and neck may be helpful in further characterization. NUCLEAR MEDICINE PARATHYROID SCINTIGRAPHY WITH SPECT 09/08/2021 Impression No convincing evidence of parathyroid adenoma. MRI OF THE CERVICAL SPINE WITHOUT CONTRAST 09/04/2021 12:34 pm Impression 1. No cervical spinal cord lesion is identified. 2. Mild central spinal canal narrowing at C6-C7 where there is a 2 mm right paracentral disc protrusion. 3. The orogastric tube is coiled in the patient's pharynx. This could be reposition for more optimal placement. MRI OF THE BRAIN WITHOUT CONTRAST 09/04/2021 12:34 pm Impression 1. Punctate acute infarcts are noted in the cerebral hemispheres, right cerebral peduncle, and central/left paramidline of the albino. Given the multivessel distribution, these are concerning for embolic infarcts. 2. 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 3. Scattered paranasal sinus disease with bilateral mastoid effusions, likely related to intubation. 4. Small area of blooming artifact associated with an infarct in the posterior right frontal lobe, deep white matter, likely related to sequela of remote hemorrhage. ONE XRAY VIEW OF THE CHEST 09/04/2021 5:51 am Impression Supportive tubing is stable. Mild improvement in bilateral airspace disease, pulmonary edema favored over pneumonia. Small components of pleural effusion are possible. CESAR findings: 09/02/2021 LA: Normal SKIP: No thrombus RA: Normal RV: Normal LV: Normal Estimated LVEF: 50% Aorta: Mild atheromatous disease arch Pericardium: Small pericardial effusion Septum: No intracardiac shunt via color Doppler. Valves: Mitral Valve: Structurally normal. Mild to moderate regurgitation is identified. Aortic Valve: The aortic valve is trileaflet and opens adequately. No regurgitiation is identified. Tricuspid valve: Structurally normal. No regurgitation is identified. Pulmonary valve: Normal. No significant regurgitation No valvular vegetations or thrombus identified. Summary: 1. A CESAR was performed without complications. 2. LVEF 50% 3. No thrombus or valvular vegetation identified 4. No intracardiac shunt via color Doppler. 5. There were no complications encountered. Cardiovascular Diseases Fellow [facility] ONE XRAY VIEW OF THE CHEST 09/02/2021 6:50 am Impression Stable support lines Slight improvement in still moderate diffuse bilateral alveolar infiltrates related to improving edema and or infection with decrease in now small right pleural effusion and moderate left basilar pleuroparenchymal process MRI OF THE ABDOMEN WITHOUT CONTRAST, 09/01/2021 1:48 pm Impression 1. Optimal definitive characterization of renal lesions requires utilization of IV contrast. Bilateral circumscribed renal lesions which would be compatible with simple renal cysts on this unenhanced study Largest in the anteromedial lower pole right kidney 3.5 cm. This is probably what is partially imaged on the recent ultrasound. 2. The appears to be some pelvic ascites as seen on the coronal images. Also of note is some body wall edema, small right pleural effusion and cardiomegaly. Cultures: Culture, Blood 1 [[id number]] Collected: 08/31/21 1515 Order Status: Completed Specimen: Blood Updated: 09/05/21 1553 Specimen Description .BLOOD Culture NO GROWTH 5 DAYS Culture, Blood 1 [[id number]] Collected: 08/31/21 1519 Order Status: Completed Specimen: Blood Updated: 09/05/21 1531 Specimen Description .BLOOD Culture NO GROWTH 5 DAYS Culture, Body Fluid [[id number]] (Abnormal) Collected: 08/29/21 0342 Order Status: Completed Specimen: Body Fluid Updated: 09/04/21 1436 Specimen Description .FLUID .PERICARDIAL FLUID Direct Exam RARE NEUTROPHILS Abnormal NO BACTERIA SEEN Gram stain made from cytocentrifuged specimen. Organisms and cells will be concentrated. Culture NO GROWTH 6 DAYS Culture, Blood 1 [[id number]] Collected: 08/30/21 0953 Order Status: Completed Specimen: Blood Updated: 09/04/21 1024 Specimen Description .BLOOD Special Requests 10ML R ARM Culture NO GROWTH 5 DAYS Culture, Blood 1 [[id number]] (Abnormal) Collected: 08/30/21 1001 Order Status: Completed Specimen: Blood Updated: 08/31/21 2337 Specimen Description .BLOOD Special Requests 20ML R WRIST Culture POSITIVE Blood Culture Abnormal DIRECT GRAM STAIN FROM BOTTLE: GRAM POSITIVE COCCI IN CHAINS Detected: Streptococcus species (not S. agalactiae (Group B), S. pneumoniae, or S. pyogenes (Group A)) Culture Results to Follow Methodology- Polymerase Chain Reaction (PCR) STREPTOCOCCI, BETA HEMOLYTIC GROUP C Abnormal (NOTE) Direct Gram Stain from bottle and Polymerase Chain Reaction (PCR) results called to and read back by: BAUTISTA Greenfield at 0425 on 08/31/21 Culture, Respiratory [[id number]] (Abnormal) Collected: 08/30/21 2341 Order Status: Completed Specimen: Endotracheal Updated: 09/02/21 0828 Specimen Description .ENDOTRACHEAL Direct Exam >10, <25 NEUTROPHILS/LPF < 10 EPITHELIAL CELLS/LPF PREDOMINANT ORGANISM: GRAM POSITIVE COCCI IN CLUSTERS Abnormal MIXED BACTERIAL MORPHOTYPES ALSO PRESENT ON GRAM STAIN. Abnormal Culture METHICILLIN RESISTANT STAPHYLOCOCCUS AUREUS HEAVY GROWTH Abnormal NORMAL RESPIRATORY JAMES LIGHT GROWTH Methicillin-Resistant Staphylococcus aureus (1) Antibiotic Interpretation Microscan Method Status penicillin Resistant >=0.5 BACTERIAL SUSCEPTIBILITY PANEL JULIÁN Final clindamycin Sensitive <=0.25 BACTERIAL SUSCEPTIBILITY PANEL JULIÁN Final erythromycin Sensitive <=0.25 BACTERIAL SUSCEPTIBILITY PANEL JULIÁN Final gentamicin Sensitive <=0.5 BACTERIAL SUSCEPTIBILITY PANEL JULIÁN Final Gentamicin is used only in combination with other active agents that test susceptible. levofloxacin Sensitive <=0.12 BACTERIAL SUSCEPTIBILITY PANEL JULIÁN Final oxacillin Resistant >=4 BACTERIAL SUSCEPTIBILITY PANEL JULIÁN Final tetracycline Sensitive <=1 BACTERIAL SUSCEPTIBILITY PANEL JULIÁN Final trimethoprim-sulfamethoxazole Sensitive <=10 BACTERIAL SUSCEPTIBILITY PANEL JULIÁN Final vancomycin Sensitive 1 BACTERIAL SUSCEPTIBILITY PANEL JULIÁN Final Specimen Collected: 08/30/21 23:41 Last Resulted: 09/02/21 08:28 MRSA DNA Probe, Nasal [[id number]] (Abnormal) Collected: 08/29/21 0813 Order Status: Completed Specimen: Nasal Updated: 08/30/21 1509 Specimen Description .NASAL SWAB MRSA, DNA, Nasal POSITIVE: MRSA DNA detected by nucleic acid amplification. Abnormal Comment: Results should be used as an adjunct to nosocomial control efforts to identify patients needing enhanced precautions. The test is not intended to identify patients with staphylococcal infections. Results should not be used to guide or monitor treatment for MRSA infections. Respiratory Panel, Molecular, with COVID-19 (Restricted: peds pts or suitable admitted adults) [[id number]] (Abnormal) Collected: 08/30/21 1115 Order Status: Completed Specimen: Nasopharyngeal Swab Updated: 08/30/21 1203 Specimen Description .NASOPHARYNGEAL SWAB Adenovirus PCR Not Detected Coronavirus 229E PCR Not Detected Coronavirus HKU1 PCR Not Detected Coronavirus NL63 PCR Not Detected Coronavirus OC43 PCR Not Detected SARS-CoV-2, PCR Not Detected Human Metapneumovirus PCR Not Detected Rhino/Enterovirus PCR DETECTED Abnormal Influenza A by PCR Not Detected Influenza B by PCR Not Detected Parainfluenza 1 PCR Not Detected Parainfluenza 2 PCR Not Detected Parainfluenza 3 PCR Not Detected Parainfluenza 4 PCR Not Detected Resp Syncytial Virus PCR Not Detected Bordetella Parapertussis Not Detected B Pertussis by PCR Not Detected Chlamydia pneumoniae By PCR Not Detected Mycoplasma pneumo by PCR Not Detected Comment: Performed by multiplexed nucleic acid assay. Medications: carvedilol 25 mg Oral BID NIFEdipine 30 mg Oral Daily cefTRIAXone (ROCEPHIN) IV 2,000 mg IntraVENous Q24H [Held by provider] furosemide 40 mg IntraVENous Daily [Held by provider] vitamin D 50,000 Units Per NG tube Weekly QUEtiapine 25 mg Per NG tube Nightly heparin (porcine) 5,000 Units SubCUTAneous 3 times per day sodium chloride flush 5-40 mL IntraVENous 2 times per day [facility] Ashish Henao MD [employer] messaging OFFICE: Thank you for allowing us to participate in the care of this patient. Please call with questions. This note iscreated with the assistance of a speech recognition program. While intending to generate a document that actually reflects the content of the visit, the document can still have some errors including those of syntax andsound a like substitutions which may escape proof reading. In such instances, actual meaning can be extrapolated by contextual diversion. Images from the original note were not included. Physical Therapy Physical Therapy Cancel Note DATE: 09/08/2021 NAME: lEias Walker : 1985 Patient not seen this date for Physical Therapy due to: Testing: Pt off the floor for MRI, therapy will CB as time allows or resume 09/09 Patient is off the unit during vital checks. Images from the original note were not included. [facility] Occupational Therapy Not Seen Note DATE: 09/08/2021 NAME: Elias Walker : 1985 Patient not seen this date for Occupational Therapy due to: Other: Pt requests to check back after breakfast as pt just returned to room from test. OT returned to room and per RN pt was off floor at Nuclear Medicine and then would be going for an MRI. Next Scheduled Treatment: 09/09/2021 Report given to BAUTISTA Lockett Girlfriend Nicolle took all of patient's belongings home. Images from the original note were not included. [facility] Progress Note Elias Walker Date: 09/07/2021 LOS: 9 Reason for F/U : Febrile illness Impression : 1. Acute hypoxic respiratory failure Extubated 09/06/2021 2. Methicillin-resistant Staph aureus pneumonia 3. Group C streptococcal sepsis 1 of 2 sets (08/30/2021) group C streptococcal sepsis which is typically associated with skin infections Repeat blood cultures 08/31/2021 are negative 4. Hypertensive emergency resolved 5. Pericardial effusion status post pericardiocentesis with 35 to 40 cc of fluid drained 08/29/2021 CESAR done 09/02/2021 without any vegetations 6. Rhinovirus/enteroviral infection 7. Pulmonary edema 8. Intermittent fevers - unclear etiology 9. Multiple punctate acute infarcts multivessel distribution suggesting septic embolic phenomena unclear etiology At this point in time the source of the embolic disease is not clear given he only had 1 out of 2 sets of blood cultures positive and echocardiogram did not show any stigmata to suggest endocarditis. 10. Obesity with obstructive sleep apnea 11. Acute kidney injury 12. Hypercalcemia Recommendations: The patient initially was on cefepime and vancomycin 08/30-09/02 Switched to ceftaroline 09/03/2021 due to concerns for OZZIE The patient has had 7 days of antibiotics to cover the MRSA in the sputum and ceftaroline was stopped 09/06/2021 Continue Rocephin to complete 28 days of antibiotic coverage through 09/28/2021 The patient still has decreased mentation overall and some issues with intercurrent muscle movements The patient has a parathyroid scan ordered a nuclear scan by the nephrology service to work-up the hypercalcemia Infection Control Recommendations: Walker precautions Discharge Planning: Estimated Length of IV antimicrobials: 09/28/2021 Patient will need Midline Catheter Insertion/ PICC line Insertion: No Patient will need: Home IV , Infusion Center, SNF, LTAC: Undetermined Patient willneed outpatient wound care: No Medical Decision making / Summary of Stay: Elias Walker is a 36 y.o.-year-old male who was initially admitted on 08/29/2021. Elias is currently intubated and the history is obtained from his girlfriend who is sitting at bedside and from reviewing the chart. Elias has no insurance and does not typically follow with physicians and his girlfriend reports that the only medication that he takes is a Zyrtec for some seasonal allergies. She also reports that he does typically get recurrent cellulitis in his left lower extremity, and that he recently had a viral illness about 2 weeks ago which she also contracted and reports having some rhinorrhea and headaches. She also reports that about a week ago he had a soft tissue abscess in his right hand which he was able to express some purulence out of The patient is obese and there is concern for obstructive sleep apnea He was also recently diagnosed with hypertension started on Lopressor. The patient presented to the emergency department complaining of shortness of breath and work-up in the seem to suggest CHF and a CT and ultrasound showed possible RA collapse with pericardial effusion at an outside facility suggested tamponade The patient was transferred here for further evaluation due to the concerns for tamponade and in the ED was intubated for airway protection and noted to be hypertensive started on nitroglycerin drip He has since been seen by cardiology and an echocardiogram showed moderate pericardial effusion and technically challenging evaluation there was no evidence of tamponade noted. 35 to 40 cc of fluid drained at pericardiocentesis in the emergency department. The patient is being treated for pulmonary edema and during the hospital stay he has been noted to have had fevers with a T-max of 101.3 degrees and was started on empiric antimicrobial therapy and I was asked to evaluate and help with antibiotic choice. The patient did undergo a CESAR that did not show any evidence of valvular heart disease/endocarditis The patient did have a new finding of bilateral Babinski's by the neurology service on 09/04/2021 had MRI of the brain done that showed multi vessel punctate acute infarcts There is a C6-C7 paracentral disc protrusion with some mild stenosis The patient was extubated 09/06/2021 Current evaluation:09/07/2021 BP 138/78 Pulse (!) 104 Temp 99.2 F (37.3 C) (Oral) Resp 23 Ht 5' 4 (1.626 m) Wt 225 lb 12 oz (102.4 kg) SpO2 94% BMI 38.75 kg/m Temperature Range: Temp: 99.2 F (37.3 C) Temp Av.7 F (37.6 C) Min: 99.2 F (37.3 C) Max: 100.2 F (37.9 C) The patient is seen and evaluated at bedside he is awake and alert and his significant other/girlfriend is at bedside. He continues to have some low-grade fevers. He does not have any subjective complaints though it is not clear whether he is truly understanding everything that I am asking him. He does follow all my commands and moves all extremities. He did have a hard time trying to put ice in his mouth from a cup as the ice he had in his hand fell out of his hand prior to his hand making it to his mouth. Review of Systems Constitutional: Negative. Respiratory: Negative. Cardiovascular: Negative. Gastrointestinal: Negative. Genitourinary: Negative. Musculoskeletal: Negative. Allergic/Immunologic: Negative. Neurological: He is having difficulty with intricate hand movements/control Physical Examination : Physical Exam Constitutional: Appearance: He is well-developed. He is obese. HENT: Head: Normocephalic and atraumatic. Cardiovascular: Rate and Rhythm: Normal rate. Heart sounds: Normal heart sounds. No friction rub. No gallop. Pulmonary: Effort: Pulmonary effort is normal. Breath sounds: Normal breath sounds. No wheezing. Abdominal: General: Bowel sounds are normal. Palpations: Abdomen is soft. There is no mass. Tenderness: There is no abdominal tenderness. Musculoskeletal: Cervical back: Neck supple. Lymphadenopathy: Cervical: No cervical adenopathy. Skin: General: Skin is warm and dry. Neurological: Mental Status: He is alert. Laboratory data: I have independently reviewed the followinglabs: CBC with Differential: Recent Labs 09/06/2123 09/07/21 0553 WBC 9.7 9.7 HGB 12.8* 13.3 HCT 40.1* 40.8 PLT 357 428 LYMPHOPCT 16* 16* MONOPCT 12 9 BMP: Recent Labs 09/06/2152209/07/21 0553 NA 147* 150* K 4.1 3.9 CL 109* 110* CO2 25 26 BUN 55* 46* CREATININE 1.78* 1.74* Hepatic Function Panel: No results for input(s): PROT, LABALBU, BILIDIR, IBILI, BILITOT, ALKPHOS, ALT, AST in the last 72 hours. Lab Results Component Value Date/Time PROCAL 0.17 08/30/2021 10:34 AM PROCAL 0.12 08/29/2021 08:07 AM Lab Results Component Value Date/Time CRP 92.0 08/30/2021 10:34 AM No results found for: SEDRATE No results found for: DDIMER No results found for: FERRITIN No results found for: LDH No results found for: FIBRINOGEN Results in Past 30 Days Result Component Current Result Ref Range Previous Result Ref Range SARS-CoV-2, PCR Not Detected (08/30/2021) Not Detected Not in Time Range Lab Results Component Value Date/Time COVID19 Not Detected 08/30/2021 11:15 AM No results for input(s): VANCOTROUGH in the last 72 hours. Imaging Studies: MRI OF THE CERVICAL SPINE WITHOUT CONTRAST 09/04/2021 12:34 pm Impression 1. No cervical spinal cord lesion is identified. 2. Mild central spinal canal narrowing at C6-C7 where there is a 2 mm right paracentral disc protrusion. 3. The orogastric tube is coiled in the patient's pharynx. This could be reposition for more optimal placement. MRI OF THE BRAIN WITHOUT CONTRAST 09/04/2021 12:34 pm Impression 1. Punctate acute infarcts are noted in the cerebral hemispheres, right cerebral peduncle, and central/left paramidline of the albino. Given the multivessel distribution, these are concerning for embolic infarcts. 2. 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 3. Scattered paranasal sinus disease with bilateral mastoid effusions, likely related to intubation. 4. Small area of blooming artifact associated with an infarct in the posterior right frontal lobe, deep white matter, likely related to sequela of remote hemorrhage. ONE XRAY VIEW OF THE CHEST 09/04/2021 5:51 am Impression Supportive tubing is stable. Mild improvement in bilateral airspace disease, pulmonary edema favored over pneumonia. Small components of pleural effusion are possible. CESAR findings: 09/02/2021 LA: Normal SKIP: No thrombus RA: Normal RV: Normal LV: Normal Estimated LVEF: 50% Aorta: Mild atheromatous disease arch Pericardium: Small pericardial effusion Septum: No intracardiac shunt via color Doppler. Valves: Mitral Valve: Structurally normal. Mild to moderate regurgitation is identified. Aortic Valve: The aortic valve is trileaflet and opens adequately. No regurgitiation is identified. Tricuspid valve: Structurally normal. No regurgitation is identified. Pulmonary valve: Normal. No significant regurgitation No valvular vegetations or thrombus identified. Summary: 1. A CESAR was performed without complications. 2. LVEF 50% 3. No thrombus or valvular vegetation identified 4. No intracardiac shunt via color Doppler. 5. There were no complications encountered. Cardiovascular Diseases Fellow [facility] ONE XRAY VIEW OF THE CHEST 09/02/2021 6:50 am Impression Stable support lines Slight improvement in still moderate diffuse bilateral alveolar infiltrates related to improving edema and or infection with decrease in now small right pleural effusion and moderate left basilar pleuroparenchymal process MRI OF THE ABDOMEN WITHOUT CONTRAST, 09/01/2021 1:48 pm Impression 1. Optimal definitive characterization of renal lesions requires utilization of IV contrast. Bilateral circumscribed renal lesions which would be compatible with simple renal cysts on this unenhanced study Largest in the anteromedial lower pole right kidney 3.5 cm. This is probably what is partially imaged on the recent ultrasound. 2. The appears to be some pelvic ascites as seen on the coronal images. Also of note is some body wall edema, small right pleural effusion and cardiomegaly. Cultures: Culture, Blood 1 [[id number]] Collected: 08/31/21 1515 Order Status: Completed Specimen: Blood Updated: 09/05/21 1553 Specimen Description .BLOOD Culture NO GROWTH 5 DAYS Culture, Blood 1 [[id number]] Collected: 08/31/21 1519 Order Status: Completed Specimen: Blood Updated: 09/05/21 1531 Specimen Description .BLOOD Culture NO GROWTH 5 DAYS Culture, Body Fluid [[id number]] (Abnormal) Collected: 08/29/21 0342 Order Status: Completed Specimen: Body Fluid Updated: 09/04/21 1436 Specimen Description .FLUID .PERICARDIAL FLUID Direct Exam RARE NEUTROPHILS Abnormal NO BACTERIA SEEN Gram stain made from cytocentrifuged specimen. Organisms and cells will be concentrated. Culture NO GROWTH 6 DAYS Culture, Blood 1 [[id number]] Collected: 08/30/21 0953 Order Status: Completed Specimen: Blood Updated: 09/04/21 1024 Specimen Description .BLOOD Special Requests 10ML R ARM Culture NO GROWTH 5 DAYS Culture, Blood 1 [[id number]] (Abnormal) Collected: 08/30/21 1001 Order Status: Completed Specimen: Blood Updated: 08/31/21 2337 Specimen Description .BLOOD Special Requests 20ML R WRIST Culture POSITIVE Blood Culture Abnormal DIRECT GRAM STAIN FROM BOTTLE: GRAM POSITIVE COCCI IN CHAINS Detected: Streptococcus species (not S. agalactiae (Group B), S. pneumoniae, or S. pyogenes (Group A)) Culture Results to Follow Methodology- Polymerase Chain Reaction (PCR) STREPTOCOCCI, BETA HEMOLYTIC GROUP C Abnormal (NOTE) Direct Gram Stain from bottle and Polymerase Chain Reaction (PCR) results called to and read back by: BAUTISTA Greenfield at 0425 on 08/31/21 Culture, Respiratory [[id number]] (Abnormal) Collected: 08/30/21 2341 Order Status: Completed Specimen: Endotracheal Updated: 09/02/21 0828 Specimen Description .ENDOTRACHEAL Direct Exam >10, <25 NEUTROPHILS/LPF < 10 EPITHELIAL CELLS/LPF PREDOMINANT ORGANISM: GRAM POSITIVE COCCI IN CLUSTERS Abnormal MIXED BACTERIAL MORPHOTYPES ALSO PRESENT ON GRAM STAIN. Abnormal Culture METHICILLIN RESISTANT STAPHYLOCOCCUS AUREUS HEAVY GROWTH Abnormal NORMAL RESPIRATORY JAMES LIGHT GROWTH Methicillin-Resistant Staphylococcus aureus (1) Antibiotic Interpretation Microscan Method Status penicillin Resistant >=0.5 BACTERIAL SUSCEPTIBILITY PANEL JULIÁN Final clindamycin Sensitive <=0.25 BACTERIAL SUSCEPTIBILITY PANEL JULIÁN Final erythromycin Sensitive <=0.25 BACTERIAL SUSCEPTIBILITY PANEL JULIÁN Final gentamicin Sensitive <=0.5 BACTERIAL SUSCEPTIBILITY PANEL JULIÁN Final Gentamicin is used only in combination with other active agents that test susceptible. levofloxacin Sensitive <=0.12 BACTERIAL SUSCEPTIBILITY PANEL JULIÁN Final oxacillin Resistant >=4 BACTERIAL SUSCEPTIBILITY PANEL JULIÁN Final tetracycline Sensitive <=1 BACTERIAL SUSCEPTIBILITY PANEL JULIÁN Final trimethoprim-sulfamethoxazole Sensitive <=10 BACTERIAL SUSCEPTIBILITY PANEL JULIÁN Final vancomycin Sensitive 1 BACTERIAL SUSCEPTIBILITY PANEL JULIÁN Final Specimen Collected: 08/30/21 23:41 Last Resulted: 09/02/21 08:28 MRSA DNA Probe, Nasal [[id number]] (Abnormal) Collected: 08/29/21 0813 Order Status: Completed Specimen: Nasal Updated: 08/30/21 1509 Specimen Description .NASAL SWAB MRSA, DNA, Nasal POSITIVE: MRSA DNA detected by nucleic acid amplification. Abnormal Comment: Results should be used as an adjunct to nosocomial control efforts to identify patients needing enhanced precautions. The test is not intended to identify patients with staphylococcal infections. Results should not be used to guide or monitor treatment for MRSA infections. Respiratory Panel, Molecular, with COVID-19 (Restricted: peds pts or suitable admitted adults) [[id number]] (Abnormal) Collected: 08/30/21 1115 Order Status: Completed Specimen: Nasopharyngeal Swab Updated: 08/30/21 1203 Specimen Description .NASOPHARYNGEAL SWAB Adenovirus PCR Not Detected Coronavirus 229E PCR Not Detected Coronavirus HKU1 PCR Not Detected Coronavirus NL63 PCR Not Detected Coronavirus OC43 PCR Not Detected SARS-CoV-2, PCR Not Detected Human Metapneumovirus PCR Not Detected Rhino/Enterovirus PCR DETECTED Abnormal Influenza A by PCR Not Detected Influenza B by PCR Not Detected Parainfluenza 1 PCR Not Detected Parainfluenza 2 PCR Not Detected Parainfluenza 3 PCR Not Detected Parainfluenza 4 PCR Not Detected Resp Syncytial Virus PCR Not Detected Bordetella Parapertussis Not Detected B Pertussis by PCR Not Detected Chlamydia pneumoniae By PCR Not Detected Mycoplasma pneumo by PCR Not Detected Comment: Performed by multiplexed nucleic acid assay. Medications: carvedilol 12.5 mg Oral BID cefTRIAXone (ROCEPHIN) IV 2,000 mg IntraVENous Q24H furosemide 40 mg IntraVENous Daily oxyCODONE 10 mg Per NG tube Q6H [Held by provider] vitamin D 50,000 Units Per NG tube Weekly QUEtiapine 25 mg Per NG tube Nightly heparin (porcine) 5,000 Units SubCUTAneous 3 times per day sodium chloride flush 5-40 mL IntraVENous 2 times per day [facility] Ashish Henao MD [employer] OFFICE: Thank you for allowing us to participate in the care of this patient. Please call with questions. This note iscreated with the assistance of a speech recognition program. While intending to generate a document that actually reflects the content of the visit, the document can still have some errors including those of syntax andsound a like substitutions which may escape proof reading. In such instances, actual meaning can be extrapolated by contextual diversion. Comprehensive Nutrition Assessment Type and Reason for Visit: Reassess Nutrition Recommendations/Plan: 1. Continue current diet. Encourage/monitor PO intakes as tolerated. Monitor need for ONS with meals. 2. Will monitor labs, weights, and plan of care. Malnutrition Assessment: Malnutrition Status: At risk for malnutrition (Comment) (09/03/21 1140) Context: Acute Illness Findings of the 6 clinical characteristics of malnutrition: Energy Intake: Mild decrease in energy intake Weight Loss: No significant weight loss Body Fat Loss: No significant body fat loss Muscle Mass Loss: No significant muscle mass loss Fluid Accumulation: No significant fluid accumulation [place] Strength: Not Performed Nutrition Assessment: Pt extubated yesterday. Pt has been started on an oral diet and working on lunch tray at visit. Pt with some c/o sore throat. Will monitor PO intakes and provide ONS with meals as/if needed. Last BM 09/07. Labs reviewed: Na 150 mmol/L, Ca 10.5 mg/dL, BUN 46 mg/dL, CR 1.74 gm/dL. Meds include: Lasix. Weight fluctuations noted. Nutrition Related Findings: Labs/Meds reviewed. Last BM 09/07. Wound Type: None Current Nutrition Intake & Therapies: Average Meal Intake: (Diet recently started.) Average Supplements Intake: None Ordered ADULT DIET; Regular; Low Fat/Low Chol/High Fiber/SOPHIA; Low Sodium (2 gm) Anthropometric Measures: Height: 5' 4 (162.6 cm) [place] Body Weight (IBW): 130 lbs (59 kg) Admission Body Weight: 246 lb 0.5 oz (111.6 kg) Current Body Weight: 225 lb 12 oz (102.4 kg), 173.7 % IBW. Weight Source: Bed Scale Current BMI (kg/m2): 38.7 Weight Adjustment For: No Adjustment BMI Categories: Obese Class 2 (BMI 35.0 -39.9) Estimated Daily Nutrient Needs: Energy Requirements Based On: Formula Weight Used for Energy Requirements: Current Energy (kcal/day): 2672-5777 kcals/day Weight Used for Protein Requirements: [place] Protein (g/day): 120 g/day Fluid (ml/day): Per MD Nutrition Diagnosis: Inadequate oral intake related to (recent extubation; current condition) as evidenced by (recent start of oral diet) Nutrition Interventions: Food and/or Nutrient Delivery: Continue Current Diet (Monitor need for oral supplements with meals.) Nutrition Education/Counseling: No recommendation at this time Coordination of Nutrition Care: Continue to monitor while inpatient Goals: Previous Goal Met: Progressing toward Goal(s) Goals: PO intake 75% or greater,by next RD assessment Nutrition Monitoring and Evaluation: Behavioral-Environmental Outcomes: None Identified Food/Nutrient Intake Outcomes: Food and Nutrient Intake Physical Signs/Symptoms Outcomes: Biochemical Data,GI Status,Nutrition Focused Physical Findings,Skin,Weight,Fluid Status or Edema Discharge Planning: Too soon to determine Juju Mishra RD, [place] Contact: [phone] Critical care team - Resident sign-out to medicine service Date and time: 09/07/2021 2:36 PM Patient's name: Elias Walker Patient's account/billing number: [id number] Patient's Date of : 1985 Age: 36 y.o. Date of Admission: 08/29/2021 1:02 AM Length of stay during current admission: 9 Primary Care Physician: No primary care provider on file. Code Status: Full Code Mode of physician to physician communication: [x] Via telephone [] In person Date and time of sign-out: 09/07/2021 2:36 PM Accepting Internal Medicine resident: Dr. Quintanilla Accepting Medicine team: [facility] Accepting team's attending: Dr. Guo Patient's current ICU Bed: 3002 Patient's assigned bed on floor: 2016 [] Med-Surg Monitored [x] Step-down [] Psychiatry ICU [] Psych floor Reason for ICU admission: Hypertensive emergency, Respiratory failure, pericardial effusion ICU course summary: BRIEF HISTORY: 36 y/o male PMH of asthma, ?HTN who was transferred from [facility] with chief complaints of chest pain. Patient had sharp chest pain radiating to the back and had a syncopal episode after chest pain. Patient went to [facility] for evaluation and was found to be hypertensive and discharged on metoprolol. Patient was found to be very hypertensive when he rechecked his blood pressure at home and patient went to [facility] for evaluation. On evaluation at [facility] patient was found to have pericardial effusion and was transferred to [facility] for further evaluation. At [facility] patient underwent pericardiocentesis draining 37 cc of dark fluid. Patient was intubated and sedated for respiratory failure and was admitted to MICU for further management of respiratory failure, acute CHF and hypertensive emergency. Patient was started on nitro ggt. Cardiology was consulted and recommended discontinuing nitro ggt and switching to cardene. They were not concerned for tamponade. Obtained CESAR which did not show tamponade or vegetations. Patient was transitioned to PO Coreg but blood pressures became soft. PO meds were on hold until patient became hypertensive again 09/06/20. Coreg restarted, uptitrated to 12.5 mg BID. Patient with intermittent fevers. Positive for rhino/enterovirus. Resp culture positive for MRSA. Patient had recent viral illness per girlfriend. Was started on empiric antimicrobials. Blood culture grew Group C strep. MRI also showed multiple punctate infarcts concerning for septic emboli, however CESAR negative. Patient was on cefepime and vanco 08/30-08/23 then switched to ceftaroline 09/03/21. Repeat blood cultures negative. Patient was switched to Rocephin 09/06. Plan to continue Rocephin 2-4 weeks. Patient had neuro consult due to poor mental status while intubated. MRI showed multiple punctate infarcts in cerebral hemispheres, right cerebral peduncle and left albino concerning for embolic infarcts. CESAR negative. Unclear etiology. Neuro recommended potential MRI of brain when acute issues resolve. Patient was able to be extubated and is alert and oriented, following all commands. Neuro status significantly improved. Patient also developed acute kidney injury with hypercalcemia and elevated PTH levels. Nephrology was consulted and is following. BUN and Cr improving. Patient was on Lasix 40 mg IV BID which was decreased to Lasix 40 mg IV daily for the past few days. Hypercalcemia and PTH levels are improving. Patient on calcitonin BID. Plan for parathyroid nuclear medicine scan. Stop Vitamin D supplement. Increase free water and start D5W. Keep stone. Procedures during patient's ICU stay: CESAR Current Vitals: BP (!) 150/92 Pulse (!) 107 Temp 99.2 F (37.3 C) (Oral) Resp 29 Ht 5' 4 (1.626 m) Wt 225 lb 12 oz (102.4 kg) SpO2 99% BMI 38.75 kg/m Cultures: Blood cultures: [] None drawn [] Negative [x] Positive (Details: group C strep ) Urine Culture: [x] None drawn [] Negative [] Positive (Details: ) Sputum Culture: [] None drawn [] Negative [x] Positive (Details: MRSA ) Endotracheal aspirate: [x] None drawn [] Negative [] Positive (Details: ) Consults: Cardiology Nephrology Infectious disease Neurology Assessment: Patient Active Problem List Diagnosis Date Noted Cerebral septic emboli (HCC) Acute kidney injury (HCC) Hypercalcemia Delirium Rhinovirus infection Fever Sepsis due to Streptococcus species without acute organ dysfunction (HCC) Staphylococcus aureus pneumonia (HCC) Acute heart failure (HCC) Acute pulmonary edema (HCC) Pericardial effusion with cardiac tamponade Pericardial effusion Pleural effusion Cardiac tamponade 08/29/2021 Acute respiratory failure with hypoxia (HCC) 08/29/2021 Priapism, unspecified 01/31/2016 Additional assessment: Neuro: Patient awake and alert and following all commands Sedation: none Pain control: Oxycodone,10 mg Q6H, fentanyl PRN (0 doses/24 hours), Tylenol PRN Seroquel 25 mg nightly MRI Brain punctuate acute infarcts in cerebral hemisphere, right cerebral peduncle, central/L paramidline of the albino Neurology following - may need repeat MRI when acute infection resolves CV: Hypertensive with SBP 140-190 Coreg 6.25 mg daily restarted Likely titrate up on Coreg and add Norvasc Labetalol PRN Hydralazine discontinued due to tachycardia HR 90-110s - monitor Cardiology signed off Heme: H&H 13.3, 40.8 Plt 428 Resp: Maintain oxygen sats >92% Pulmonary toilet Extubated yesterday to nasal cannula 2L CXR 09/04: improved bilateral airspace disease /Fluids/Electrolytes: BUN 46 (55), Cr 1.74 (1.78) Monitor I&O UOP 3L last 24 hours, net -8.68L Stone's in place US showed right kidney lesion MRI showed possible R kidney lesion Nephrology following - decreased lasix to 40 mg daily, check PTH, start calcitonin Monitor electrolytes, replace PRN GI/Nutrition: Glycolax Ulcer Prophylaxis: H2 blockers - can DC now that extubated Passed swallow study - start cardiac diet ID: Tmax 100.2F WBC 9.7 MRSA + Rhino virus positive Blood cx pos for Group C strep B - repeat cx No growth 5 days ID following - Narrow coverage to Rocephin 2-4 weeks Endo: BS 121 No insulin requirements PTH 141.5 (167.2) Continue calcitonin 100U BID Prophylaxis: DVT: Heparin 5000, SCD GI: H2 blockers - stop today Recommended Follow-up: 3. Monitor blood pressure - likely need to uptitrate Coreg more and add Norvasc 4. F/u ID recommendations on total duration of antibiotic therapy, ?cause for septic emboli 5. F/u nephrology recommendations - continue calcitonin, stop vitamin D supplementation, keep stone, monitor I&O, cont Lasix 40 mg IV daily 6. F/u parathyroid scan 7. Monitor respiratory status and pulmonary edema - pulm to continue to follow on the floor Above mentioned assessment and plan was discussed by me with the admitting medicine resident. The medicine team assigned to the patient by medicine admitting resident will be following up the patient from now onwards on the floor. Sadie Quintanilla DO Emergency Medicine Resident Critical Care Service [facility] 09/07/2021, 2:36 PM EDT Images from the original note were not included. [facility] Occupational Therapy Not Seen Note DATE: 09/07/2021 NAME: Elias Walker : 1985 Patient not seen this date for Occupational Therapy due to: Other: Family member present in room, polite decline stating patient fatigued; Next Scheduled Treatment: Ck 09/08 Physical Therapy Facility/Department: [facility] 3 Physical Therapy Initial Assessment Name: Elias Walker : 1985 Date of Service: 09/07/2021 Discharge Recommendations: Further therapy recommended at discharge. Chief Complaint Patient presents with Shortness of Breath [facility], cardiac tamponade Chest Pain The patient is a 36 y.o. male who presents with Shortness of Breath ([facility] tx, cardiac tamponade) and Chest Pain . The patient was seen and examined and the chart was reviewed. PT Equipment Recommendations Equipment Needed: No (Owns RW) Patient Diagnosis(es): The primary encounter diagnosis was Acute heart failure, unspecified heart failure type (HCC). Diagnoses of Acute pulmonary edema (HCC), Pericardial effusion with cardiac tamponade, and Acute respiratory failure, unspecified whether with hypoxia or hypercapnia (HCC) were also pertinent to this visit. Past Medical History: has a past medical history of Priapism, unspecified. Past Surgical History: has a past surgical history that includes Penis surgery (01/31/2016). Assessment Body Structures, Functions, Activity Limitations Requiring Skilled Therapeutic Intervention: Decreased functional mobility ;Decreased balance;Decreased coordination;Decreased strength;Decreased ADL status;Decreased endurance;Decreased high-level IADLs Assessment: pt mod-max A for bed mobility, sits on EOB x4 minutes with mod A-min A for L lean. Pt currently unsafe to return to prior living situation d/t need for skilled assistance with all functional mobility. Pt would benefit from intensive continued therapy to promote endurance, balance, and strengthening. Therapy Prognosis: Good Decision Making: Medium Complexity Barriers to Learning: slow response time Requires PT Follow-Up: Yes Activity Tolerance Activity Tolerance: Patient limited by endurance;Patient limited by fatigue Plan Plan Plan: 6-7 times per week Current Treatment Recommendations: Strengthening,Neuromuscular re-education,Safety education & training,Patient/Caregiver education & training,Endurance training,Balance training,Functional mobility training,Transfer training,ADL/Self-care training,IADL training,Gait training,Stair training,Home exercise program,Equipment evaluation, education, & procurement,Therapeutic activities Safety Devices Type of Devices: All fall risk precautions in place,Gait belt,Nurse notified,Bed alarm in place,Call light within reach,Left in bed Restrictions Restrictions/Precautions Restrictions/Precautions: Fall Risk Required Braces or Orthoses?: No Position Activity Restriction Other position/activity restrictions: extubated 09/06 Subjective General Patient assessed for rehabilitation services?: Yes Response To Previous Treatment: Not applicable Family / Caregiver Present: Yes (girlfriend) Follows Commands: Impaired Other (Comment): Increased time to respond to commands/questions Subjective Subjective: RN and pt agreeable to PT. pt agreeable and pleasant. Pt supine in bed at start of session. Pt c/o no pain. Social/Functional History Social/Functional History Lives With: Significant other (girlfriend and girlfriend's daughter) Type of Home: Mobile home Home Layout: One level Home Access: Stairs to enter with rails Entrance Stairs - Number of Steps: 4 Entrance Stairs - Rails: Left Bathroom Shower/Tub: Walk-in shower Bathroom Toilet: Handicap height Bathroom Equipment: Grab bars in shower Home Equipment: (RW, 4WW, cane, not using AD at baseline) Receives Help From: Family ADL Assistance: Independent Homemaking Assistance: Independent Homemaking Responsibilities: Yes Active Architectural Engineer: Yes Mode of Transportation: [email or web address] 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 Vision/Hearing Vision Vision: Within Functional Limits Hearing Hearing: Within functional limits Cognition Orientation Overall Orientation Status: Within Functional Limits Cognition Overall Cognitive Status: Exceptions Arousal/Alertness: Delayed responses to stimuli Following Commands: Follows one step commands with repetition;Follows one step commands with increased time Problem Solving: Assistance required to generate solutions;Assistance required to identify errors made;Decreased awareness of errors Insights: Decreased awareness of deficits Initiation: Requires cues for some Sequencing: Requires cues for some Gross Assessment Sensation: Intact (denies n/t) AROM RLE (degrees) RLE AROM: WFL AROM LLE (degrees) LLE AROM : WFL AROM RUE (degrees) RUE AROM : Exceptions RUE General AROM: not formally tested, see OT note AROM LUE (degrees) LUE AROM : Exceptions LUE General AROM: Not formally tested, see OT note Strength RLE Strength RLE: Exception Comment: tested in supine d/t pt fatigued with sitting, at least 3/5 hip flexion and knee extension, DF/PF WFL Strength LLE Strength LLE: Exception Comment: tested in supine d/t pt fatigued with sitting, at least 3/5 hip flexion and knee extension, DF/PF WFL Strength RUE Strength RUE: Exception Comment: Not formally tested, see OT note Strength LUE Strength LUE: Exception Comment: Not formally tested, see OT note Bed mobility Supine to Sit: Moderate assistance (for trunk and RLE) Sit to Supine: Maximum assistance (for BLE) Scooting: Moderate assistance Bed Mobility Comments: HOB elevated. Cues to progress task Transfers Comment: YARIEL d/t poor sitting balance and poor sitting tolerance Ambulation More Ambulation?: No Stairs/Curb Stairs?: No Balance Posture: Fair Sitting - Static: Poor Sitting - Dynamic: Poor Comments: Pt sits at EOB x4 minutes with mod A for L lean. Verbal and tactile cues to correct L lean with fair return. With cues requires min A for L lean. AM-PAC Score AM-PAC Inpatient Mobility Raw Score : 9 (09/07/211329) AM-PAC Inpatient T-Scale Score : 30.55 (09/07/211329) Mobility Inpatient CMS 0-100% Score: 81.38 (09/07/211329) Mobility Inpatient CMS G-Code Modifier : CM (09/07/211329) Goals Short Term Goals Time Frame for Short term goals: 14 visits Short term goal 1: Complete bed mobility with min A Short term goal 2: Complete transfers with min A and RW Short term goal 3: Complete 200 ft of gait with min A and RW Short term goal 4: Complete 4 stpes LHR and min A Short term goal 5: Participate in 30 minutes of therapy to promote endurance Education Patient Education Education Given To: Patient Education Provided: Role of Therapy;Plan of Care Education Method: Demonstration;Verbal Barriers to Learning: None Education Outcome: Verbalized understanding;Demonstrated understanding Therapy Time Individual Concurrent Group Co-treatment Time In 1047 Time Out 1117 Minutes 30 Timed Code Treatment Minutes: 25 Minutes Falguni Sherman PT Renal Progress Note Patient : Elias Walker; 36 y.o. Location: [id number]- Attending: Brian Gracia MD Admit Date: 08/29/2021 Hospital Day: 9 Subjective: Patient is initially transferred from [facility] due to complaints of chest pain, had syncopal episode there found to be hypertensive, found to have pericardial effusion transferred to [facility] underwent pericardiocentesis with 37 cc of dark fluid drainage, had respiratory failure required mechanical ventilation admitted to the ICU. Further work-up showed embolic strokes in MRI, and encephalopathy, hypertensive emergency, sepsis with blood culture positive for beta-hemolytic streptococci group C, rhinovirus/enterovirus infection, developed acute kidney injury along with hypercalcemia with elevated PTH levels. Nephrology following due to acute kidney injury. Patient was seen and examined. Now extubated and passed swallow study. No new issues reported overnight. Serum creatinine did improve to 1.74 mg/dl today. 2150, potassium 3.9, chloride 110, bicarb 26, BUN 46, calcium 10.5. PTH 141.5. Urine output documented as about 3 L in the last 24 hours. Patient did receive 1 dose of calcitonin yesterday and 1 dose today. Received 1 dose of Lasix 40 mg IV today morning, was on Lasix 40 IV twice daily which was changed to daily since her last 3 days. Has been having some hypotension, blood pressure medications were adjusted by critical care. Blood culture 08/30/2021 was positive for beta-hemolytic streptococci group C. Respiratory panel 08/30/2021 positive for Rhino/enterovirus PCR. Currently on IV antibiotics. MRI brain 09/04/2021: Punctate acute infarcts in the cerebral hemispheres, right cerebral peduncle and central/left paramidline of the albino. Concern for embolic infarct. Small chronic infarcts noted in the centrum semiovale bilaterally, right putamen and right caudate head. Neurology following. Outpatient Medications: Medications Prior to Admission: loratadine-pseudoephedrine (CLARITIN-D 24 HOUR) 10-240 MG per extended release tablet, Take 1 tablet by mouth daily cephALEXin (KEFLEX) 500 MG capsule, Take 1 capsule by mouth 3 times daily docusate sodium (COLACE) 100 MG capsule, Take 1 capsule by mouth 2 times daily as needed for Constipation oxyCODONE-acetaminophen (PERCOCET) 5-325 MG per tablet, Take 1-2 tablets by mouth every 4 hours as needed for Pain Current Medications: Scheduled Meds: carvedilol 6.25 mg Oral BID cefTRIAXone (ROCEPHIN) IV 2,000 mg IntraVENous Q24H furosemide 40 mg IntraVENous Daily oxyCODONE 10 mg Per NG tube Q6H vitamin D 50,000 Units Per NG tube Weekly QUEtiapine 25 mg Per NG tube Nightly heparin (porcine) 5,000 Units SubCUTAneous 3 times per day sodium chloride flush 5-40 mL IntraVENous 2 times per day Continuous Infusions: dexmedetomidine Stopped (09/07/21 0326) sodium chloride Stopped (09/07/21 0405) PRN Meds: fentanNYL, labetalol, bisacodyl, sodium chloride flush, sodium chloride, ondansetron OR ondansetron, polyethylene glycol, acetaminophen OR acetaminophen Input/Output: I/O last 3 completed shifts: In: 1994 [I.V.:1369; NG/GT:576; IV Piggyback:50] Out: 61 [Urine:6187]. Patient Vitals for the past 96 hrs (Last 3 readings): Weight 09/07/21 0600 225 lb 12 oz (102.4 kg) 09/06/21 0600 225 lb 12 oz (102.4 kg) 09/05/21 0432 231 lb 11.3 oz (105.1 kg) Vital Signs: Temperature: Temp: 100 F (37.8 C) TMax: Temp (24hrs), Av.7 F (37.6 C), Min:98.6 F (37 C), Max:100.3 F (37.9 C) Respirations: Resp: 28 Pulse: Heart Rate: (!) 112 BP: BP: (!) 180/107 BP Range: Systolic (24hrs), Av , Min:128 , Max:214 Diastolic (24hrs), Av, Min:75, Max:187 Physical Examination: General: AAO x 3, speaking in full sentences, no accessory muscle use. HEENT: Atraumatic, normocephalic, no throat congestion, moist mucosa. Eyes: Pupils equal, round and reactive to light, EOMI. Neck: Supple Chest: Bilateral vesicular breath sounds, no rales or wheezes. Cardiac: S1 S2 RR, no murmurs, gallops or rubs. Abdomen: Soft, non-tender, no masses or organomegaly, BS audible. : No suprapubic or flank tenderness. Neuro: AAO x 3, No FND. SKIN: No rashes, good skin turgor. Extremities: No edema. Labs: Recent Labs 09/05/2144709/06/2152209/07/21 0553 WBC 8.0 9.7 9.7 RBC 4.19* 4.45 4.63 HGB 12.0* 12.8* 13.3 HCT 38.1* 40.1* 40.8 MCV 90.9 90.1 88.1 MCH 28.6 28.8 28.7 MCHC 31.5 31.9 32.6 RDW 12.5 12.2 12.5 PLT 305 357 428 MPV 10.3 10.3 10.0 BMP: Recent Labs 09/05/2144709/06/2123 09/07/21 0553 NA 145* 147* 150* K 4.0 4.1 3.9 CL 109* 109* 110* CO2 28 25 26 BUN 49* 55* 46* CREATININE 1.80* 1.78* 1.74* GLUCOSE 123* 121* 121* CALCIUM 10.7* 11.0* 10.5* MARIO: Lab Results Component Value Date/Time MARIO NEGATIVE 08/30/2021 10:34 AM SPEP: Lab Results Component Value Date/Time PROT 5.8 09/02/2021 12:25 PM ALBCAL 3.1 09/02/2021 12:25 PM ALBPCT 53 09/02/2021 12:25 PM LABALPH 0.4 09/02/2021 12:25 PM LABALPH 0.8 09/02/2021 12:25 PM A1PCT 7 09/02/2021 12:25 PM A2PCT 13 09/02/2021 12:25 PM LABBETA 0.9 09/02/2021 12:25 PM BETAPCT 16 09/02/2021 12:25 PM GAMGLOB 0.7 09/02/2021 12:25 PM GGPCT 11 09/02/2021 12:25 PM PATH ELECTRONICALLY SIGNED. ZOE STERN M.D. 09/02/2021 12:25 PM PATH ELECTRONICALLY SIGNED. ZOE STERN M.D. 09/02/2021 12:25 PM C3: Lab Results Component Value Date/Time C3 183 09/02/2021 12:25 PM C4: Lab Results Component Value Date/Time C4 29 09/02/2021 12:25 PM MPO ANCA: Lab Results Component Value Date/Time MPO <0.3 08/30/2021 10:34 AM PR3 ANCA: Lab Results Component Value Date/Time PR3 0.9 08/30/2021 10:34 AM Hep BsAg: Lab Results Component Value Date/Time HEPBSAG NONREACTIVE 09/02/2021 12:25 PM Hep C AB: Lab Results Component Value Date/Time HEPCAB NONREACTIVE 09/02/2021 12:25 PM Urinalysis/Chemistries: Lab Results Component Value Date/Time NITRU NEGATIVE 08/30/2021 10:36 AM COLORU Yellow 08/30/2021 10:36 AM PHUR 5.0 08/30/2021 10:36 AM WBCUA 20 TO 50 08/30/2021 10:36 AM RBCUA 2 TO 5 08/30/2021 10:36 AM SPECGRAV 1.020 08/30/2021 10:36 AM LEUKOCYTESUR MODERATE 08/30/2021 10:36 AM UROBILINOGEN Normal 08/30/2021 10:36 AM BILIRUBINUR NEGATIVE 08/30/2021 10:36 AM GLUCOSEU NEGATIVE 08/30/2021 10:36 AM KETUA NEGATIVE 08/30/2021 10:36 AM Urine Creatinine: Lab Results Component Value Date/Time LABCREA 129.7 09/02/2021 02:14 PM Radiology: Reviewed. Assessment: 1. Acute Kidney Injury nonoliguric likely secondary to ischemic ATN from sepsis, low flow state, underlying heart failure and further aggravated by nephrotoxic agents including ibuprofen, Bactrim and was recently receiving vancomycin as well. Exact baseline not available but seems to be currently running around 1.6-1.8 range. 2. Bacteremia/sepsis with Blood culture 08/30/2021 was positive for beta-hemolytic streptococci group C. 3. Respiratory panel 08/30/2021 positive for Rhino/enterovirus PCR. 4. Acute respiratory failure multifactorial requiring mechanical ventilation, now extubated. 5. Hypercalcemia likely PTH related and further complicated by use of calcium carbonate-cholecalciferol and ergocalciferol. 6. Cardiomyopathy with last EF of 30 to 35% as per 2D echo done on 08/29/2021.. 7. Morbid obesity. 8. Obstructive sleep apnea. 9. Fluid overload-improving. 10. Hypernatremia likely due to decreased free water intake. 11. Vitamin D deficiency. 12. Pericardial effusion status post pericardiocentesis about 35 to 40 cc of fluid drained 08/29/2021. 13. Multiple punctate acute infarcts likely embolic. Neurology on board. Plan: 1. Continue Lasix 40 mg IV once a day. 2. Agree with calcitonin. 3. Will check parathyroid nuclear medicine scan to rule out adenoma. 4. Agree with stopping vitamin D and calcium supplements for now. 5. Increase free water intake. 6. Will start D5W at 50 cc an hour. 7. Monitor strict I's and O's and renal function. 8. Avoid any further nephrotoxic agents as much as possible. 9. BMP in AM. 10. Keep stone in for now. 11. Will follow. Nutrition Please ensure that patient is on a renal diet/TF. Avoid nephrotoxic drugs/contrast exposure. Talib Saldaña MD [facility] This note is created with the assistance of a speech-recognition program. While intending to generate a document that actually reflects the content of the visit, no guarantees can be provided that every mistake has been identified and corrected by editing. [facility] Neurology IN-PATIENT SERVICE NEUROLOGY PROGRESS NOTE Date: 09/07/2021 Patient name: Elias Walker Date of admission: 08/29/2021 Date of : 1985 Interval History: This patient has is girlfriend sitting next to him at time of examination. Patient is extubated. Patient has passed his swallowing test to be given food Patient is able answer some simple questions at this time. History of Present Illness: The patient is a 36 y.o. male who presents with Shortness of Breath ([facility] tx, cardiac tamponade) and Chest Pain . The patient was seen and examined and the chart was reviewed. This patient had recent difficulties with hypertension. He has OZZIE. He had onset of MRSA pneumonia group C streptococcal septicemia. He had required oral intubation and ventilation. He also required sedation for agitation. MRI of the brain showed multiple small punctate infarcts including right cerebral peduncle and left paramedian albino as well as strokes in both hemispheres. 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 3 day duration Past Surgical History: Past Surgical History: Procedure Laterality Date PENIS SURGERY 01/31/2016 decompression of priapism, penis shunt Medications during admission: carvedilol 6.25 mg Oral BID cefTRIAXone (ROCEPHIN) IV 2,000 mg IntraVENous Q24H furosemide 40 mg IntraVENous Daily famotidine 20 mg Per G Tube BID oxyCODONE 10 mg Per NG tube Q6H vitamin D 50,000 Units Per NG tube Weekly QUEtiapine 25 mg Per NG tube Nightly heparin (porcine) 5,000 Units SubCUTAneous 3 times per day sodium chloride flush 5-40 mL IntraVENous 2 times per day Physical Exam: BP (!) 180/107 Pulse (!) 112 Temp 100 F (37.8 C) (Oral) Resp 28 Ht 5' 4 (1.626 m) Wt 225 lb 12 oz (102.4 kg) SpO2 95% BMI 38.75 kg/m Temp (24hrs), Av.6 F (37.6 C), Min:98.5 F (36.9 C), Max:100.3 F (37.9 C) Neurological examination: Mental status He is awake. He does appear to have cognitive impairment. He is not oriented to time. Does not appear to be oriented to place although he is aware he is in the hospital. He is slow to answer some questions and slow to follow commands but can follow commands and can express his wishes. Cranial nerves II - visual wan intact to confrontation; pupils reactive III, IV, extraocular muscles intact V - normal facial sensation VII - normal facial symmetry VIII - intact hearing IX, X -patient is able to swallow noted on swallowing study. Patient sounds hoarse post extubation. XI -normal head turning XII - midline tongue Motor function patient has fairly good strength on the right side would rank 4/5 grasp and 4/5 foot plantarflexion and dorsiflexion. He is able to lift the right leg off the bed briskly. Left side appears to be slightly weaker. I would rank 3/5 with regard to plantarflexion and dorsiflexion. He is able to lift the left leg off the bed with difficulty. His grasp appears to be slightly decreased on the left compared to the right. He also is somewhat slower to raise the left arm off the bed than the right. Sensory function grossly intact to tactile stimuli throughout. Reliability of answers seems limited Cerebellar he is tremulous. He does have tremor when he attempts to raise a cup with his right hand. No cogwheeling or ataxia noted. Sensory level identified. Reflex function 1/4 symmetric at biceps. Knee reflexes are 3-4+.. Downgoing plantar response bilaterally. ( Gait nonambulatory Diagnostics: Laboratory Testing: CBC: Recent Labs 09/05/218 09/06/2123 09/07/21 0553 WBC 8.0 9.7 9.7 HGB 12.0* 12.8* 13.3 PLT 305 357 428 BMP: Recent Labs 09/05/2144709/06/2123 09/07/21 0553 NA 145* 147* 150* K 4.0 4.1 3.9 CL 109* 109* 110* CO2 28 25 26 BUN 49* 55* 46* CREATININE 1.80* 1.78* 1.74* GLUCOSE 123* 121* 121* Lab Results Component Value Date (H) 09/02/2021 ALT 13 08/30/2021 AST 20 08/30/2021 No results found for: PHENYTOIN, PHENYTOIN, VALPROATE, CBMZ Impression: 1. Encephalopathy. Multifactorial. Clearly improving. 2. Extubated. Able to swallow. 3. MRI did demonstrate multiple embolic strokes as noted above. 4. Hypertension is as noted above. Appears to be somewhat difficult to control 5. Acute kidney injury Plan: Continue medical support. Neurology will follow. Advance physical therapy as tolerated Artur Quiñones MD [facility] Neurology Critical Care Team - Daily Progress Note Date and time: 09/07/2021 7:06 AM Patient's name: Elias Walker Patient's account/billing number: [id number] Patient's Date of : 1985 Age: 36 y.o. Date of Admission: 08/29/2021 1:02 AM Length of stay during current admission: 9 Primary Care Physician: No primary care provider on file. Code Status: Full Code Reason for ICU admission: Cardiac Tamponade SUBJECTIVE: OVERNIGHT EVENTS: Patient was extubated yesterday to nasal cannula. Tolerated well. Saturating 90-95% on 2L NC. Denies chest pain or shortness of breath. Does have some sore throat and hoarse voice, likely from intubation/ETT. Patient is awake and alert and following all commands. Denies needs. Has been increasingly hypertensive since extubation. Coreg was restarted. Will likely need to titrate up and add Norvasc. Patient has PRN labetalol and hydralazine ordered. He received three doses of labetalol and one of hydralazine. After hydralazine patient became tachycardic 110s. Will discontinue. BRIEF HISTORY: PMH of asthma who was transferred from [facility] with chief complaints of chest pain. Patient had sharp chest pain radiating to the back and had a syncopal episode after chest pain. Patient went to [facility] for evaluation and was found to be hypertensive and discharged on metoprolol. Patient was found to be very hypertensive today on rechecking blood pressure at home and patient went to [facility] for evaluation. On evaluation at [facility] patient was found to have pericardial effusion and was transferred to [facility] for further evaluation. At [facility] patient underwent pericardiocentesis draining 37 cc of dark fluid. Patient was intubated and sedated for respiratory failure and was admitted to MICU for further management of respiratory failure, acute CHF and hypertensive emergency. AWAKE & FOLLOWING COMMANDS: [] No [x] Yes CURRENT VENTILATION STATUS: [x] Ventilator [] BIPAP [x] Nasal Cannula [] Room Air IF INTUBATED, ET TUBE MARKING AT LOWER LIP: cms SECRETIONS Amount: [] Small [] Moderate [] Large [x] None Color: [] White [] Colored [] Bloody SEDATION: RAAS Score: [] Propofol gtt [] Versed gtt [] Ativan gtt [x] No Sedation PARALYZED: [x] No [] Yes DIARRHEA: [x] No [] Yes (C. Difficile status: [] positive [] negative [] pending) VASOPRESSORS: [x] No [] Yes If yes - [] Levophed [] Dopamine [] Vasopressin [] Dobutamine [] Phenylephrine [] Epinephrine CENTRAL LINES: [x] No [] Yes (Date of Insertion: ) If yes - [] Right IJ [] Left IJ [] Right Femoral [] Left Femoral [] Right Subclavian [] Left Subclavian STONE'S CATHETER: [] No [x] Yes (Date of Insertion: ) URINE OUTPUT: [x] Good [] Low [] Anuric OBJECTIVE: VITAL SIGNS: BP (!) 180/107 Pulse (!) 112 Temp 99.9 F (37.7 C) (Oral) Resp 28 Ht 5' 4 (1.626 m) Wt 225 lb 12 oz (102.4 kg) SpO2 95% BMI 38.75 kg/m Tmax over 24 hours: Temp (24hrs), Av.5 F (37.5 C), Min:98.5 F (36.9 C), Max:100.3 F (37.9 C) Patient Vitals for the past 6 hrs: BP Temp Temp src Pulse Resp SpO2 Weight 09/07/21 0600 (!) 180/107 (!) 112 28 95 % 225 lb 12 oz (102.4 kg) 09/07/21 0500 (!) 180/91 (!) 104 28 90 % 09/07/21 0400 133/75 99.9 F (37.7 C) Oral 98 21 93 % 09/07/21 0315 (!) 149/84 99 26 90 % 09/07/21 0300 (!) 149/88 97 27 (!) 89 % 09/07/21 0245 (!) 147/78 96 26 (!) 89 % 09/07/21 0230 (!) 163/90 94 25 (!) 89 % 09/07/21 0215 (!) 184/98 96 22 91 % 09/07/21 0200 (!) 166/97 99.7 F (37.6 C) Oral 96 27 09/07/21 0145 (!) 157/100 93 26 92 % 09/07/21 0130 (!) 143/81 92 29 91 % 09/07/21 0115 (!) 152/87 90 29 92 % Intake/Output Summary (Last 24 hours) at 09/07/2021 0706 Last data filed at 09/07/2021 0300 Gross per 24 hour Intake 740.72 ml Output 3080 ml Net -2339.28 ml Wt Readings from Last 2 Encounters: 09/07/21 225 lb 12 oz (102.4 kg) 09/01/21 244 lb (110.7 kg) Body mass index is 38.75 kg/m . PHYSICAL EXAMINATION: Constitutional: Awake and alert, following all commands, answering questions with nodding head or short few words EENT: PERRLA, EOMI, sclera clear, no lesions, neck supple with midline trachea. Neck: Supple, symmetrical, trachea midline, no adenopathy, no jvd, skin normal Respiratory: clear to auscultation, no wheezes or rales and unlabored breathing. Cardiovascular: tachycardic, sinus, normal S1, S2, no murmur noted Abdomen: obese, soft, nontender, nondistended, no masses or organomegaly Extremities: peripheral pulses normal, no pedal edema, no clubbing or cyanosis Neuro: alert and oriented, following commands, moving all extremities spontaneously MEDICATIONS: Scheduled Meds: carvedilol 6.25 mg Oral BID cefTRIAXone (ROCEPHIN) IV 2,000 mg IntraVENous Q24H furosemide 40 mg IntraVENous Daily calcitonin 100 Units IntraMUSCular Daily famotidine 20 mg Per G Tube BID oxyCODONE 10 mg Per NG tube Q6H vitamin D 50,000 Units Per NG tube Weekly QUEtiapine 25 mg Per NG tube Nightly heparin (porcine) 5,000 Units SubCUTAneous 3 times per day sodium chloride flush 5-40 mL IntraVENous 2 times per day Continuous Infusions: dexmedetomidine 0.5 mcg/kg/hr (09/06/212046) sodium chloride 10 mL/hr at 09/06/212046 PRN Meds: hydrALAZINE, 10 mg, Q6H PRN fentanNYL, 50 mcg, Q2H PRN labetalol, 20 mg, Q2H PRN bisacodyl, 10 mg, Daily PRN sodium chloride flush, 5-40 mL, PRN sodium chloride, , PRN ondansetron, 4 mg, Q8H PRN Or ondansetron, 4 mg, Q6H PRN polyethylene glycol, 17 g, Daily PRN acetaminophen, 650 mg, Q6H PRN Or acetaminophen, 650 mg, Q6H PRN VENT SETTINGS (Comprehensive) (if applicable): Vent Information Ventilator ID: [id number] Vent Mode: PS/CPAP Ventilator Discontinue: Yes Additional Respiratory Assessments Heart Rate: (!) 112 Resp: 28 SpO2: 95 % End Tidal CO2: 43 (%) Position: Semi-Pope's Humidification Source: HME Cuff Pressure (cm H2O): (medical concierge) Skin Barrier Applied: No Laboratory findings: Complete Blood Count: Recent Labs 09/05/2144709/06/21 0509/07/21 0553 WBC 8.0 9.7 9.7 HGB 12.0* 12.8* 13.3 HCT 38.1* 40.1* 40.8 PLT 305 357 428 Last 3 Blood Glucose: Recent Labs 09/05/2144709/06/21 0523 09/07/21 0553 GLUCOSE 123* 121* 121* PT/INR: No results found for: PROTIME, INR PTT: No results found for: APTT, PTT Comprehensive Metabolic Profile: Recent Labs 09/05/2144709/06/21 0509/07/21 0553 NA 145* 147* 150* K 4.0 4.1 3.9 CL 109* 109* 110* CO2 28 25 26 BUN 49* 55* 46* CREATININE 1.80* 1.78* 1.74* GLUCOSE 123* 121* 121* CALCIUM 10.7* 11.0* 10.5* Magnesium: No results found for: MG Phosphorus: Lab Results Component Value Date/Time PHOS 3.2 09/02/2021 12:25 PM Ionized Calcium: Lab Results Component Value Date/Time CAION 1.46 09/07/2021 05:53 AM Urinalysis: Troponin: No results for input(s): TROPONINI in the last 72 hours. Microbiology: Cultures during this admission: Blood cultures: [] None drawn [] Negative [x] Positive (Details: Group B Strep ) Urine Culture: [x] None drawn [] Negative [] Positive (Details: ) Sputum Culture: [] None drawn [] Negative [x] Positive (Details: MRSA ) Endotracheal aspirate: [x] None drawn [] Negative [] Positive (Details: ) Radiology/Imaging: No results found. ASSESSMENT: Principal Problem: Cardiac tamponade Active Problems: Acute respiratory failure with hypoxia (HCC) Acute heart failure (HCC) Acute pulmonary edema (HCC) Pericardial effusion with cardiac tamponade Pericardial effusion Pleural effusion Rhinovirus infection Fever Sepsis due to Streptococcus species without acute organ dysfunction (HCC) Staphylococcus aureus pneumonia (HCC) Delirium Cerebral septic emboli (HCC) OZZIE (acute kidney injury) (HCC) Hypercalcemia Resolved Problems: * No resolved hospital problems. * PLAN: WEAN PER PROTOCOL: [] No [x] Yes [] N/A DISCONTINUE ANY LABS: [x] No [] Yes ICU PROPHYLAXIS: Stress ulcer: [] PPI Agent [x] [id number] [] Sucralfate [] Other: VTE: [] Enoxaparin [x] Unfract. Heparin Subcut [] EPC Cuffs NUTRITION: (Diet: Diet NPO ADULT TUBE FEEDING; Orogastric; Peptide Based High Protein; Continuous; 25; Yes; 0; Q 4 hours; 25; 30; Q 4 hours; Protein; Provide 1 Proteinex Protein Modular TWICE daily) HOME MEDICATIONS RECONCILED: [] No [x] Yes INSULIN DRIP: [x] No [] Yes CONSULTATION NEEDED: [x] No [] Yes FAMILY UPDATED: [x] No [] Yes TRANSFER OUT OF ICU: Consider after rounds ADDITIONAL PLAN: Neuro: Patient awake and alert and following all commands Sedation: none Pain control: Oxycodone,10 mg Q6H, fentanyl PRN (0 doses/24 hours), Tylenol PRN Seroquel 25 mg nightly MRI Brain punctuate acute infarcts in cerebral hemisphere, right cerebral peduncle, central/L paramidline of the albino Neurology following - may need repeat MRI when acute infection resolves CV: Hypertensive with SBP 140-190 Coreg 6.25 mg daily restarted Likely titrate up on Coreg and add Norvasc Labetalol PRN Hydralazine discontinued due to tachycardia HR 90-110s - monitor Cardiology signed off Heme: H&H 13.3, 40.8 Plt 428 Resp: Maintain oxygen sats >92% Pulmonary toilet Extubated yesterday to nasal cannula 2L CXR 09/04: improved bilateral airspace disease /Fluids/Electrolytes: BUN 46 (55), Cr 1.74 (1.78) Monitor I&O UOP 3L last 24 hours, net -8.68L Stone's in place US showed right kidney lesion MRI showed possible R kidney lesion Nephrology following - decreased lasix to 40 mg daily, check PTH, start calcitonin Monitor electrolytes, replace PRN GI/Nutrition: Glycolax Ulcer Prophylaxis: H2 blockers - can DC now that extubated Passed swallow study - start cardiac diet ID: Tmax 100.2F WBC 9.7 MRSA + Rhino virus positive Blood cx pos for Group C strep B - repeat cx No growth 5 days ID following - Narrow coverage to Rocephin 2-4 weeks Endo: BS 121 No insulin requirements PTH 141.5 (167.2) Continue calcitonin 100U BID Prophylaxis: DVT: Heparin 5000, SCD GI: H2 blockers - stop today Consider transfer today if HR and BP stabilize Sadie Quintanilla DO Department of Critical Care [facility], [place] 09/07/2021, 7:06 AM Associated attestation - Srinivasan Mccartney MD - 09/07/2021 2:17 PM EDT Critical Care Attending Physician Addendum: I have personally seen and examined Elias Walker with the resident and the salguero elements of all parts of the encounter were performed by me. Patient was reassessed on more than one occasion, when required. I reviewed the interval history, interpreted all available radiographic, laboratory and physiologic data at the time of service. I agree with the assessment and plan as documented by resident. Critical care time (excluding procedures) of more than 30 minutes was spent in coordination of care during bedside rounds and discussion of patient care in detail. Patient s/p extubation yesterday. Off Precedex. Remains hemodynamically stable. On nasal cannula 2 L/min. Okay to transfer out of ICU. Critical care will sign off at the time of transfer. We will continue to follow from pulm standpoint. Srinivasan Mccartney MD Pulmonary and Critical Care Medicine Images from the original note were not included. [facility] Progress Note Elias Walker Date: 09/06/2021 LOS: 8 Reason for F/U : Febrile illness Impression : 1. Acute hypoxic respiratory failure Extubated 09/06/2021 2. Methicillin-resistant Staph aureus pneumonia 3. Group C streptococcal sepsis 1 of 2 sets (08/30/2021) group C streptococcal sepsis which is typically associated with skin infections 4. Hypertensive emergency resolved 5. Pericardial effusion status post pericardiocentesis with 35 to 40 cc of fluid drained 08/29/2021 CESAR done 09/02/2021 without any vegetations 6. Rhinovirus/enteroviral infection 7. Pulmonary edema 8. Intermittent fevers - unclear etiology 9. Multiple punctate acute infarcts multivessel distribution suggesting septic embolic phenomena unclear etiology 10. Obesity with obstructive sleep apnea 11. Acute kidney injury Recommendations: The patient initially was on cefepime and vancomycin 08/30/2021 through 09/02/2021 Switched to ceftaroline 09/03/2021 due to concerns for OZZIE worsening The intermittent fevers continue Repeat blood cultures 08/31/2021 are negative At this point in time the source of the embolic disease is not clear given he only had 1 out of 2 sets of blood cultures positive and echocardiogram did not show any stigmata to suggest endocarditis. The patient has had 7 days of antibiotics to cover the MRSA in the sputum and at this point in time I will narrow the antimicrobial therapy to Rocephin to complete 2 to 4 weeks of antibiotic coverage Infection Control Recommendations: Walker precautions Discharge Planning: Estimated Length of IV antimicrobials: 2 to 4 weeks Patient will need Midline Catheter Insertion/ PICC line Insertion: No Patient will need: Home IV , Infusion Center, SNF, LTAC: Undetermined Patient willneed outpatient wound care: No Medical Decision making / Summary of Stay: Elias Walker is a 36 y.o.-year-old male who was initially admitted on 08/29/2021. Elias is currently intubated and the history is obtained from his girlfriend who is sitting at bedside and from reviewing the chart. Elias has no insurance and does not typically follow with physicians and his girlfriend reports that the only medication that he takes is a Zyrtec for some seasonal allergies. She also reports that he does typically get recurrent cellulitis in his left lower extremity, and that he recently had a viral illness about 2 weeks ago which she also contracted and reports having some rhinorrhea and headaches. She also reports that about a week ago he had a soft tissue abscess in his right hand which he was able to express some purulence out of The patient is obese and there is concern for obstructive sleep apnea He was also recently diagnosed with hypertension started on Lopressor. The patient presented to the emergency department complaining of shortness of breath and work-up in the seem to suggest CHF and a CT and ultrasound showed possible RA collapse with pericardial effusion at an outside facility suggested tamponade The patient was transferred here for further evaluation due to the concerns for tamponade and in the ED was intubated for airway protection and noted to be hypertensive started on nitroglycerin drip He has since been seen by cardiology and an echocardiogram showed moderate pericardial effusion and technically challenging evaluation there was no evidence of tamponade noted. 35 to 40 cc of fluid drained at pericardiocentesis in the emergency department. The patient is being treated for pulmonary edema and during the hospital stay he has been noted to have had fevers with a T-max of 101.3 degrees and was started on empiric antimicrobial therapy and I was asked to evaluate and help with antibiotic choice. The patient did have a new finding of bilateral Babinski's by the neurology service on 09/04/2021 had MRI of the brain done that showed multi vessel punctate acute infarcts There is a C6-C7 paracentral disc protrusion with some mild stenosis Current evaluation:09/06/2021 BP (!) 162/90 Pulse 85 Temp 100.3 F (37.9 C) (Oral) Resp 20 Ht 5' 4 (1.626 m) Wt 225 lb 12 oz (102.4 kg) SpO2 95% BMI 38.75 kg/m Temperature Range: Temp: 100.3 F (37.9 C) Temp Av.3 F (37.4 C) Min: 98.5 F (36.9 C) Max: 100.3 F (37.9 C) The patient is seen and evaluated at bedside he was extubated earlier today. He is awake and alert but still remains somewhat mildly confused. He was able to voice some words to me though some of the words are incoherent. Due to him being recently extubated and some mild confusion in the system review is unreliable. The patient has continued to have some low-grade fevers T-max of 100.3 degrees. Review of Systems Unable to perform ROS: Other Physical Examination : Physical Exam Constitutional: Appearance: He is well-developed. He is obese. HENT: Head: Normocephalic and atraumatic. Cardiovascular: Rate and Rhythm: Normal rate. Heart sounds: Normal heart sounds. No friction rub. No gallop. Pulmonary: Effort: Pulmonary effort is normal. Breath sounds: Normal breath sounds. No wheezing. Abdominal: General: Bowel sounds are normal. Palpations: Abdomen is soft. There is no mass. Tenderness: There is no abdominal tenderness. Musculoskeletal: Cervical back: Neck supple. Lymphadenopathy: Cervical: No cervical adenopathy. Skin: General: Skin is warm and dry. Neurological: Mental Status: He is alert. Laboratory data: I have independently reviewed the followinglabs: CBC with Differential: Recent Labs 09/05/21 0448 09/06/21 0523 WBC 8.0 9.7 HGB 12.0* 12.8* HCT 38.1* 40.1* PLT 305 357 LYMPHOPCT 24 16* MONOPCT 13* 12 BMP: Recent Labs 09/05/21 0448 09/06/21 0523 NA 145* 147* K 4.0 4.1 CL 109* 109* CO2 28 25 BUN 49* 55* CREATININE 1.80* 1.78* Hepatic Function Panel: No results for input(s): PROT, LABALBU, BILIDIR, IBILI, BILITOT, ALKPHOS, ALT, AST in the last 72 hours. Lab Results Component Value Date/Time PROCAL 0.17 08/30/2021 10:34 AM PROCAL 0.12 08/29/2021 08:07 AM Lab Results Component Value Date/Time CRP 92.0 08/30/2021 10:34 AM No results found for: SEDRATE No results found for: DDIMER No results found for: FERRITIN No results found for: LDH No results found for: FIBRINOGEN Results in Past 30 Days Result Component Current Result Ref Range Previous Result Ref Range SARS-CoV-2, PCR Not Detected (08/30/2021) Not Detected Not in Time Range Lab Results Component Value Date/Time COVID19 Not Detected 08/30/2021 11:15 AM No results for input(s): VANCOTROUGH in the last 72 hours. Imaging Studies: MRI OF THE CERVICAL SPINE WITHOUT CONTRAST 09/04/2021 12:34 pm Impression 1. No cervical spinal cord lesion is identified. 2. Mild central spinal canal narrowing at C6-C7 where there is a 2 mm right paracentral disc protrusion. 3. The orogastric tube is coiled in the patient's pharynx. This could be reposition for more optimal placement. MRI OF THE BRAIN WITHOUT CONTRAST 09/04/2021 12:34 pm Impression 1. Punctate acute infarcts are noted in the cerebral hemispheres, right cerebral peduncle, and central/left paramidline of the albino. Given the multivessel distribution, these are concerning for embolic infarcts. 2. 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 3. Scattered paranasal sinus disease with bilateral mastoid effusions, likely related to intubation. 4. Small area of blooming artifact associated with an infarct in the posterior right frontal lobe, deep white matter, likely related to sequela of remote hemorrhage. ONE XRAY VIEW OF THE CHEST 09/04/2021 5:51 am Impression Supportive tubing is stable. Mild improvement in bilateral airspace disease, pulmonary edema favored over pneumonia. Small components of pleural effusion are possible. CESAR findings: 09/02/2021 LA: Normal SKIP: No thrombus RA: Normal RV: Normal LV: Normal Estimated LVEF: 50% Aorta: Mild atheromatous disease arch Pericardium: Small pericardial effusion Septum: No intracardiac shunt via color Doppler. Valves: Mitral Valve: Structurally normal. Mild to moderate regurgitation is identified. Aortic Valve: The aortic valve is trileaflet and opens adequately. No regurgitiation is identified. Tricuspid valve: Structurally normal. No regurgitation is identified. Pulmonary valve: Normal. No significant regurgitation No valvular vegetations or thrombus identified. Summary: 1. A CESAR was performed without complications. 2. LVEF 50% 3. No thrombus or valvular vegetation identified 4. No intracardiac shunt via color Doppler. 5. There were no complications encountered. Cardiovascular Diseases Fellow [facility] ONE XRAY VIEW OF THE CHEST 09/02/2021 6:50 am Impression Stable support lines Slight improvement in still moderate diffuse bilateral alveolar infiltrates related to improving edema and or infection with decrease in now small right pleural effusion and moderate left basilar pleuroparenchymal process MRI OF THE ABDOMEN WITHOUT CONTRAST, 09/01/2021 1:48 pm Impression 1. Optimal definitive characterization of renal lesions requires utilization of IV contrast. Bilateral circumscribed renal lesions which would be compatible with simple renal cysts on this unenhanced study Largest in the anteromedial lower pole right kidney 3.5 cm. This is probably what is partially imaged on the recent ultrasound. 2. The appears to be some pelvic ascites as seen on the coronal images. Also of note is some body wall edema, small right pleural effusion and cardiomegaly. Cultures: Culture, Blood 1 [[id number]] Collected: 08/31/21 1515 Order Status: Completed Specimen: Blood Updated: 09/05/21 1553 Specimen Description .BLOOD Culture NO GROWTH 5 DAYS Culture, Blood 1 [[id number]] Collected: 08/31/21 1519 Order Status: Completed Specimen: Blood Updated: 09/05/21 1531 Specimen Description .BLOOD Culture NO GROWTH 5 DAYS Culture, Body Fluid [[id number]] (Abnormal) Collected: 08/29/21 0342 Order Status: Completed Specimen: Body Fluid Updated: 09/04/21 1436 Specimen Description .FLUID .PERICARDIAL FLUID Direct Exam RARE NEUTROPHILS Abnormal NO BACTERIA SEEN Gram stain made from cytocentrifuged specimen. Organisms and cells will be concentrated. Culture NO GROWTH 6 DAYS Culture, Blood 1 [[id number]] Collected: 08/30/21 0953 Order Status: Completed Specimen: Blood Updated: 09/04/21 1024 Specimen Description .BLOOD Special Requests 10ML R ARM Culture NO GROWTH 5 DAYS Culture, Blood 1 [[id number]] (Abnormal) Collected: 08/30/21 1001 Order Status: Completed Specimen: Blood Updated: 08/31/21 2337 Specimen Description .BLOOD Special Requests 20ML R WRIST Culture POSITIVE Blood Culture Abnormal DIRECT GRAM STAIN FROM BOTTLE: GRAM POSITIVE COCCI IN CHAINS Detected: Streptococcus species (not S. agalactiae (Group B), S. pneumoniae, or S. pyogenes (Group A)) Culture Results to Follow Methodology- Polymerase Chain Reaction (PCR) STREPTOCOCCI, BETA HEMOLYTIC GROUP C Abnormal (NOTE) Direct Gram Stain from bottle and Polymerase Chain Reaction (PCR) results called to and read back by: BAUTISTA Greenfield at 0425 on 08/31/21 Culture, Respiratory [[id number]] (Abnormal) Collected: 08/30/212340 Order Status: Completed Specimen: Endotracheal Updated: 09/02/21827 Specimen Description .ENDOTRACHEAL Direct Exam >10, <25 NEUTROPHILS/LPF < 10 EPITHELIAL CELLS/LPF PREDOMINANT ORGANISM: GRAM POSITIVE COCCI IN CLUSTERS Abnormal MIXED BACTERIAL MORPHOTYPES ALSO PRESENT ON GRAM STAIN. Abnormal Culture METHICILLIN RESISTANT STAPHYLOCOCCUS AUREUS HEAVY GROWTH Abnormal NORMAL RESPIRATORY JAMES LIGHT GROWTH Methicillin-Resistant Staphylococcus aureus (1) Antibiotic Interpretation Microscan Method Status penicillin Resistant >=0.5 BACTERIAL SUSCEPTIBILITY PANEL JULIÁN Final clindamycin Sensitive <=0.25 BACTERIAL SUSCEPTIBILITY PANEL JULIÁN Final erythromycin Sensitive <=0.25 BACTERIAL SUSCEPTIBILITY PANEL JULIÁN Final gentamicin Sensitive <=0.5 BACTERIAL SUSCEPTIBILITY PANEL JULIÁN Final Gentamicin is used only in combination with other active agents that test susceptible. levofloxacin Sensitive <=0.12 BACTERIAL SUSCEPTIBILITY PANEL JULIÁN Final oxacillin Resistant >=4 BACTERIAL SUSCEPTIBILITY PANEL JULIÁN Final tetracycline Sensitive <=1 BACTERIAL SUSCEPTIBILITY PANEL JULIÁN Final trimethoprim-sulfamethoxazole Sensitive <=10 BACTERIAL SUSCEPTIBILITY PANEL JULIÁN Final vancomycin Sensitive 1 BACTERIAL SUSCEPTIBILITY PANEL JULIÁN Final Specimen Collected: 08/30/21 23:41 Last Resulted: 09/02/21 08:28 MRSA DNA Probe, Nasal [[id number]] (Abnormal) Collected: 08/29/21 0813 Order Status: Completed Specimen: Nasal Updated: 08/30/21 1509 Specimen Description .NASAL SWAB MRSA, DNA, Nasal POSITIVE: MRSA DNA detected by nucleic acid amplification. Abnormal Comment: Results should be used as an adjunct to nosocomial control efforts to identify patients needing enhanced precautions. The test is not intended to identify patients with staphylococcal infections. Results should not be used to guide or monitor treatment for MRSA infections. Respiratory Panel, Molecular, with COVID-19 (Restricted: peds pts or suitable admitted adults) [[id number]] (Abnormal) Collected: 08/30/21 1115 Order Status: Completed Specimen: Nasopharyngeal Swab Updated: 08/30/21 1203 Specimen Description .NASOPHARYNGEAL SWAB Adenovirus PCR Not Detected Coronavirus 229E PCR Not Detected Coronavirus HKU1 PCR Not Detected Coronavirus NL63 PCR Not Detected Coronavirus OC43 PCR Not Detected SARS-CoV-2, PCR Not Detected Human Metapneumovirus PCR Not Detected Rhino/Enterovirus PCR DETECTED Abnormal Influenza A by PCR Not Detected Influenza B by PCR Not Detected Parainfluenza 1 PCR Not Detected Parainfluenza 2 PCR Not Detected Parainfluenza 3 PCR Not Detected Parainfluenza 4 PCR Not Detected Resp Syncytial Virus PCR Not Detected Bordetella Parapertussis Not Detected B Pertussis by PCR Not Detected Chlamydia pneumoniae By PCR Not Detected Mycoplasma pneumo by PCR Not Detected Comment: Performed by multiplexed nucleic acid assay. Medications: famotidine 20 mg Per G Tube BID furosemide 40 mg IntraVENous Q12H oxyCODONE 10 mg Per NG tube Q6H vitamin D 50,000 Units Per NG tube Weekly QUEtiapine 25 mg Per NG tube Nightly heparin (porcine) 5,000 Units SubCUTAneous 3 times per day ceftaroline fosamil (TEFLARO) IVPB 400 mg IntraVENous Q12H [Held by provider] carvedilol 6.25 mg Oral BID sodium chloride flush 5-40 mL IntraVENous 2 times per day [facility] Ashish Henao MD Jiff messaging OFFICE: Thank you for allowing us to participate in the care of this patient. Please call with questions. This note iscreated with the assistance of a speech recognition program. While intending to generate a document that actually reflects the content of the visit, the document can still have some errors including those of syntax andsound a like substitutions which may escape proof reading. In such instances, actual meaning can be extrapolated by contextual diversion. Order obtained for extubation. SpO2 of 99 on 40% FiO2. Patient extubated and placed on 4 liters/min via nasal cannula. Post extubation SpO2 is 100% with HR 94 bpm and RR 20 breaths/min. Patient had strong cough that was productive of blood streaked sputum. Extubation Well tolerated by patient.. Breath Sounds: clear ERIC ARIAS RCP 11:08 AM Renal Progress Note Subjective: Patient was seen and examined. Just extubated. Yesterday per Dr. Grier Restart Lasix 40 mg IV twice daily with persistent pulmonary edema and more intake than output last 2 shifts Weight decreasing. Cr with plateau / stable. U/o 2.4L past 24 hours. Negative 7L this admission. Calcium remains high, currently on calcium carb-cholecalciferol and ergocalciferol. Off Vanco Outpatient Medications: Medications Prior to Admission: loratadine-pseudoephedrine (CLARITIN-D 24 HOUR) 10-240 MG per extended release tablet, Take 1 tablet by mouth daily cephALEXin (KEFLEX) 500 MG capsule, Take 1 capsule by mouth 3 times daily docusate sodium (COLACE) 100 MG capsule, Take 1 capsule by mouth 2 times daily as needed for Constipation oxyCODONE-acetaminophen (PERCOCET) 5-325 MG per tablet, Take 1-2 tablets by mouth every 4 hours as needed for Pain Current Medications: Scheduled Meds: famotidine 20 mg Per G Tube BID furosemide 40 mg IntraVENous Q12H oxyCODONE 10 mg Per NG tube Q6H vitamin D 50,000 Units Per NG tube Weekly QUEtiapine 25 mg Per NG tube Nightly heparin (porcine) 5,000 Units SubCUTAneous 3 times per day ceftaroline fosamil (TEFLARO) IVPB 400 mg IntraVENous Q12H [Held by provider] carvedilol 6.25 mg Oral BID sodium chloride flush 5-40 mL IntraVENous 2 times per day Continuous Infusions: dexmedetomidine 1.5 mcg/kg/hr (09/06/2150) fentaNYL 50 mcg/mL 75 mcg/hr (09/06/21745) sodium chloride 10 mL/hr at 09/06/21745 PRN Meds: bisacodyl, fentanNYL, fentanNYL, sodium chloride flush, sodium chloride, ondansetron OR ondansetron, polyethylene glycol, acetaminophen OR acetaminophen Input/Output: I/O last 3 completed shifts: In: 3487 [I.V.:1804.5; NG/GT:1533; IV Piggyback:149.6] Out: 5447 [Urine:5447]. Patient Vitals for the past 96 hrs (Last 3 readings): Weight 09/06/21 0600 225 lb 12 oz (102.4 kg) 09/05/21 0432 231 lb 11.3 oz (105.1 kg) 09/04/21 0600 231 lb 14.8 oz (105.2 kg) Vital Signs: Temperature: Temp: 98.9 F (37.2 C) TMax: Temp (24hrs), Av.3 F (37.4 C), Min:98.8 F (37.1 C), Max:100 F (37.8 C) Respirations: Resp: 22 Pulse: Heart Rate: 74 BP: BP: 129/84 BP Range: Systolic (24hrs), Av , Min:107 , Max:176 Diastolic (24hrs), Av, Min:62, Max:118 Physical Examination: General: Just extubated, supplemental O2 needs being addressed at bedside HEENT: Atraumatic, normocephalic, no throat congestion, moist mucosa. Neck: No JVD, no thyromegaly, no lymphadenopathy. Chest: Bilateral air entry, clear Cardiac: S1 S2 RR, no murmurs, gallops or rubs, JVP Abdomen: Soft, non-tender, hypoactive bs SKIN: No rashes, good skin turgor. Extremities: Trace edema, palpable peripheral pulses Labs: Recent Labs 09/04/21 0548 09/05/21 0448 09/06/21 0523 WBC 9.2 8.0 9.7 RBC 4.00* 4.19* 4.45 HGB 12.1* 12.0* 12.8* HCT 36.9* 38.1* 40.1* MCV 92.3 90.9 90.1 MCH 30.3 28.6 28.8 MCHC 32.8 31.5 31.9 RDW 12.5 12.5 12.2 PLT 403 305 357 MPV 10.5 10.3 10.3 BMP: Recent Labs 09/04/21 0548 09/04/21 0548 09/04/21 1622 09/05/21 0448 09/06/21 0523 NA 142 < > 143 145* 147* K 4.4 < > 4.3 4.0 4.1 CL 107 < > 106 109* 109* CO2 21 < > 26 28 25 BUN 38* -- -- 49* 55* CREATININE 1.93* -- -- 1.80* 1.78* GLUCOSE 138* -- -- 123* 121* CALCIUM 10.3 -- -- 10.7* 11.0* < > = values in this interval not displayed. Phosphorus: No results for input(s): PHOS in the last 72 hours.MARIO: Lab Results Component Value Date/Time MARIO NEGATIVE 08/30/2021 10:34 AM SPEP: Lab Results Component Value Date/Time PROT 5.8 09/02/2021 12:25 PM ALBCAL 3.1 09/02/2021 12:25 PM ALBPCT 53 09/02/2021 12:25 PM LABALPH 0.4 09/02/2021 12:25 PM LABALPH 0.8 09/02/2021 12:25 PM A1PCT 7 09/02/2021 12:25 PM A2PCT 13 09/02/2021 12:25 PM LABBETA 0.9 09/02/2021 12:25 PM BETAPCT 16 09/02/2021 12:25 PM GAMGLOB 0.7 09/02/2021 12:25 PM GGPCT 11 09/02/2021 12:25 PM PATH ELECTRONICALLY SIGNED. ZOE STERN M.D. 09/02/2021 12:25 PM PATH ELECTRONICALLY SIGNED. ZOE STERN M.D. 09/02/2021 12:25 PM C3: Lab Results Component Value Date/Time C3 183 09/02/2021 12:25 PM C4: Lab Results Component Value Date/Time C4 29 09/02/2021 12:25 PM MPO ANCA: Lab Results Component Value Date/Time MPO <0.3 08/30/2021 10:34 AM PR3 ANCA: Lab Results Component Value Date/Time PR3 0.9 08/30/2021 10:34 AM Anti-GBM: No results found for: GBMABIGG Hep BsAg: Lab Results Component Value Date/Time HEPBSAG NONREACTIVE 09/02/2021 12:25 PM Hep C AB: Lab Results Component Value Date/Time HEPCAB NONREACTIVE 09/02/2021 12:25 PM Urinalysis/Chemistries: Lab Results Component Value Date/Time NITRU NEGATIVE 08/30/2021 10:36 AM COLORU Yellow 08/30/2021 10:36 AM PHUR 5.0 08/30/2021 10:36 AM WBCUA 20 TO 50 08/30/2021 10:36 AM RBCUA 2 TO 5 08/30/2021 10:36 AM SPECGRAV 1.020 08/30/2021 10:36 AM LEUKOCYTESUR MODERATE 08/30/2021 10:36 AM UROBILINOGEN Normal 08/30/2021 10:36 AM BILIRUBINUR NEGATIVE 08/30/2021 10:36 AM GLUCOSEU NEGATIVE 08/30/2021 10:36 AM KETUA NEGATIVE 08/30/2021 10:36 AM Urine Creatinine: Lab Results Component Value Date/Time LABCREA 129.7 09/02/2021 02:14 PM Radiology: CXR: Reviewed Assessment: 1. Acute Kidney Injury: Secondary to ischemic ATN from sepsis, low flow, left heart failure. Further aggravated by nephrotoxic agents including ibuprofen and Bactrim, recently receiving vancomycin. Levels have been stable at 1.7-1.8. Baseline creatinine not known, creatinine in 2018 was 0.8 which peaked up to 2 mg/dl and has been stable for about a week at that range. Nonoliguric. 2. Group C streptococcus bacteremia leading to sepsis, fevers and hypotension 3. Suspected MRSA pneumonia 4. Respiratory failure multifactorial, including MRSA pneumonia left heart failure fluid overload on the ventilator, further aggravated by encephalopathy 5. Hypercalcemia 6. Cardiomyopathy likely nonischemic ejection fraction 35% 7. Morbid obesity sleep apnea suspect 8. Hypertension which was initially uncontrolled now appears to be hypotensive 9. Mild hypercalcemia of unclear etiology, on calcium carb-cholecalciferol and ergocalciferol. 10. Fluid overload -improving. Plan: 1. Avoid nephrotoxic agents 2. Change lasix to once a day 3. Inj Calcitonin and check PTH. 4. Follow labs as ordered 5. Following Will discuss with Dr. Solitario. Nutrition Please ensure that patient is on a renal diet/TF. Avoid nephrotoxic drugs/contrast exposure. Grace Melton CNP [facility] 09/06/2021 Attending Physician Statement I have discussed the care of Elias Walker, including pertinent history and exam findings, with the RECREATION SUPERVISOR. I have reviewed the salguero elements of all parts of the encounter with the RECREATION SUPERVISOR. I agree with the assessment, plan and orders as documented. Sharda Solitario MD MD, MRCP (), FACP 09/06/2021 1:46 PM [facility] IN-PATIENT SERVICE NEUROLOGY PROGRESS NOTE Date: 09/06/2021 Patient name: Elias Walker Date of admission: 08/29/2021 Date of : 1985 Interval History: Today patient is awake. Eyes open. Able to follow command to grasp release with right hand for me. Limited movement of legs noted today no movement left arm noted today. Review of the case with nurse on service shows that he has grasped with a left hand and that he has moved both legs on command at times. His performance seems to be variable. Patient may be a candidate for extubation later today according to nursing staff. History of Present Illness: The patient is a 36 y.o. male who presents with Shortness of Breath ([facility], cardiac tamponade) and Chest Pain . The patient was seen and examined and the chart was reviewed. Patient with recent significant hypertension. OZZIE noted. Onset of MRSA pneumonia and group C Streptococcus septicemia. Patient in respiratory compromise requiring intubation orally and ventilation. He also had agitation which required sedation. MRI of brain did show multiple small punctate infarcts including right cerebral peduncle left paramedian albino and in both hemispheres. Patient does have findings suggestive of left-sided weakness greater than right. He has had increased reflexes at knees bilaterally. He has had variable Babinski's. Yesterday began showing signs of improvement with decreasing requirement for fentanyl sedation. He remains on Precedex sedation. 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 3 day duration Past Surgical History: Past Surgical History: Procedure Laterality Date PENIS SURGERY 01/31/2016 decompression of priapism, penis shunt Medications during admission: famotidine 20 mg Per G Tube BID furosemide 40 mg IntraVENous Q12H oxyCODONE 10 mg Per NG tube Q6H vitamin D 50,000 Units Per NG tube Weekly QUEtiapine 25 mg Per NG tube Nightly heparin (porcine) 5,000 Units SubCUTAneous 3 times per day ceftaroline fosamil (TEFLARO) IVPB 400 mg IntraVENous Q12H [Held by provider] carvedilol 6.25 mg Oral BID sodium chloride flush 5-40 mL IntraVENous 2 times per day Physical Exam: BP 129/84 Pulse 74 Temp 98.9 F (37.2 C) (Oral) Resp 22 Ht 5' 4 (1.626 m) Wt 225 lb 12 oz (102.4 kg) SpO2 100% BMI 38.75 kg/m Temp (24hrs), Av.3 F (37.4 C), Min:98.8 F (37.1 C), Max:100 F (37.8 C) Neurological examination: Mental status Awake limited ability to follow commands verbal performance; orally intubated. Not able to speak Cranial nerves II - visual wan intact to confrontation Limited exam; pupils reactive III, IV, extraocular muscles intact V - normal facial sensation VII -responds facial tactile stimuli with symmetric facial movement VIII - intact hearing IX, X -not testable XI -not testable XII -not testable Motor function weak grasp right hand on command. Minimal movement of leg on command. No grasp left hand in command. His specific performance may be limited at this time due to fluctuating mental status. Sensory function Intact to touch throughout Cerebellar appears to have normal tone. No obvious tremors Reflex function 1/4 symmetric at biceps. 3+ at knees.. Neutral plantar response bilaterally. Gait not testable Diagnostics: Laboratory Testing: CBC: Recent Labs 09/04/21 0548 09/05/21 0448 09/06/21 0523 WBC 9.2 8.0 9.7 HGB 12.1* 12.0* 12.8* PLT 403 305 357 BMP: Recent Labs 09/04/21 0548 09/04/21 0548 09/04/21 1622 09/05/21 0448 09/06/21 0523 NA 142 < > 143 145* 147* K 4.4 < > 4.3 4.0 4.1 CL 107 < > 106 109* 109* CO2 21 < > 26 28 25 BUN 38* -- -- 49* 55* CREATININE 1.93* -- -- 1.80* 1.78* GLUCOSE 138* -- -- 123* 121* < > = values in this interval not displayed. Lab Results Component Value Date TRIG (H) 09/02/2021 ALT 13 08/30/2021 AST 20 08/30/2021 No results found for: PHENYTOIN, PHENYTOIN, VALPROATE, CBMZ Impression: 1. Encephalopathy. Multifactorial. Improving. 2. Multiple tiny embolic strokes as noted above. Appear to be septic emboli. 3. Patient reported have been using medication prescribed for others prior to admission. 4. Has significant prehospital episodes of hypertension now controlled. 5. Acute kidney injury. Plan: No new action per neurology at this time. Neurology will continue to follow. Patient may need follow-up MRI of brain once his infections have cleared. Artur Quiñones MD [facility] Neurology Critical Care Team - Daily Progress Note Date and time: 09/06/2021 7:14 AM Patient's name: Elias Walker Patient's account/billing number: [id number] Patient's Date of : 1985 Age: 36 y.o. Date of Admission: 08/29/2021 1:02 AM Length of stay during current admission: 8 Primary Care Physician: No primary care provider on file. Code Status: Full Code Reason for ICU admission: Cardiac Tamponade SUBJECTIVE: OVERNIGHT EVENTS: Patient is vitally stable, no acute events overnight. Tmax 99.6 HR 64, BP stable, no hypo/hypertension noted Fentanyl 75 mcg and Precedex 1.5 Vent Rate 20 PEEP 5 Tidal Volume 440 Ph 7.392 pCO2 48.2 HCO3 29.3 pO2 98.0 Total in 2.4L and UO 4.5L Patient was started roxicodone 10 mg to wean down fentanyl AWAKE & FOLLOWING COMMANDS: [x] No [] Yes CURRENT VENTILATION STATUS: [x] Ventilator [] BIPAP [] Nasal Cannula [] Room Air IF INTUBATED, ET TUBE MARKING AT LOWER LIP: cms SECRETIONS Amount: [] Small [] Moderate [] Large [x] None Color: [] White [] Colored [] Bloody SEDATION: RAAS Score: [] Propofol gtt [] Versed gtt [] Ativan gtt [x] No Sedation PARALYZED: [] No [] Yes DIARRHEA: [] No [] Yes (C. Difficile status: [] positive [] negative [] pending) VASOPRESSORS: [x] No [] Yes If yes - [] Levophed [] Dopamine [] Vasopressin [] Dobutamine [] Phenylephrine [] Epinephrine CENTRAL LINES: [] No [] Yes (Date of Insertion: ) If yes - [] Right IJ [] Left IJ [] Right Femoral [] Left Femoral [] Right Subclavian [] Left Subclavian STONE'S CATHETER: [] No [x] Yes (Date of Insertion: ) URINE OUTPUT: [x] Good [] Low [] Anuric OBJECTIVE: VITAL SIGNS: BP 116/73 Pulse 64 Temp 99.6 F (37.6 C) (Oral) Resp 20 Ht 5' 4 (1.626 m) Wt 225 lb 12 oz (102.4 kg) SpO2 99% BMI 38.75 kg/m Tmax over 24 hours: Temp (24hrs), Av.3 F (37.4 C), Min:98.8 F (37.1 C), Max:100 F (37.8 C) Patient Vitals for the past 6 hrs: BP Temp Temp src Pulse Resp SpO2 Weight 09/06/21 0600 116/73 99.6 F (37.6 C) Oral 64 20 99 % 225 lb 12 oz (102.4 kg) 09/06/21 0534 69 20 100 % 09/06/21 0500 129/82 68 20 99 % 09/06/21 0400 110/62 99.3 F (37.4 C) Oral 70 20 94 % 09/06/21 0315 84 22 99 % 09/06/21 0300 133/69 86 25 100 % 09/06/21 0200 (!) 144/87 99.1 F (37.3 C) Oral 82 21 100 % Intake/Output Summary (Last 24 hours) at 09/06/2021713 Last data filed at 09/06/2021 0620 Gross per 24 hour Intake 2464.74 ml Output 4512 ml Net -2047.26 ml Wt Readings from Last 2 Encounters: 09/06/21 225 lb 12 oz (102.4 kg) 09/01/21 244 lb (110.7 kg) Body mass index is 38.75 kg/m . PHYSICAL EXAMINATION: Constitutional: patient is intubated and not following commands EENT: PERRLA, EOMI, sclera clear, no lesions, neck supple with midline trachea. Neck: Supple, symmetrical, trachea midline, no adenopathy, no jvd, skin normal Respiratory: clear to auscultation, no wheezes or rales and unlabored breathing. Cardiovascular: regular rate and rhythm, normal S1, S2, no murmur noted Abdomen: soft, nontender, nondistended, no masses or organomegaly Extremities: peripheral pulses normal, no pedal edema, no clubbing or cyanosis Neuro: was able to squeeze my fingers and moved his legs Any additional physical findings: MEDICATIONS: Scheduled Meds: famotidine 20 mg Per G Tube BID furosemide 40 mg IntraVENous Q12H oxyCODONE 10 mg Per NG tube Q6H vitamin D 50,000 Units Per NG tube Weekly QUEtiapine 25 mg Per NG tube Nightly heparin (porcine) 5,000 Units SubCUTAneous 3 times per day ceftaroline fosamil (TEFLARO) IVPB 400 mg IntraVENous Q12H [Held by provider] carvedilol 6.25 mg Oral BID sodium chloride flush 5-40 mL IntraVENous 2 times per day Continuous Infusions: dexmedetomidine 1.5 mcg/kg/hr (09/06/21619) fentaNYL 50 mcg/mL 75 mcg/hr (09/06/21619) sodium chloride 10 mL/hr at 09/06/21619 PRN Meds: bisacodyl, 10 mg, Daily PRN fentanNYL, 50 mcg, Q1H PRN fentanNYL, 50 mcg, Q1H PRN sodium chloride flush, 5-40 mL, PRN sodium chloride, , PRN ondansetron, 4 mg, Q8H PRN Or ondansetron, 4 mg, Q6H PRN polyethylene glycol, 17 g, Daily PRN acetaminophen, 650 mg, Q6H PRN Or acetaminophen, 650 mg, Q6H PRN VENT SETTINGS (Comprehensive) (if applicable): Vent Information Ventilator ID: [id number] Vent Mode: PS/CPAP Additional Respiratory Assessments Heart Rate: 64 Resp: 20 SpO2: 99 % End Tidal CO2: 42 (%) Position: Semi-Pope's Humidification Source: HME Cuff Pressure (cm H2O): (medical concierge) Skin Barrier Applied: No Laboratory findings: Complete Blood Count: Recent Labs 09/04/21 0548 09/05/21 0448 09/06/21 0523 WBC 9.2 8.0 9.7 HGB 12.1* 12.0* 12.8* HCT 36.9* 38.1* 40.1* PLT 403 305 357 Last 3 Blood Glucose: Recent Labs 09/04/21 0548 09/05/21 0448 09/06/21 0523 GLUCOSE 138* 123* 121* PT/INR: No results found for: PROTIME, INR PTT: No results found for: APTT, PTT Comprehensive Metabolic Profile: Recent Labs 09/04/21 0548 09/04/21 0548 09/04/21 1622 09/05/218 09/06/21 0523 NA 142 < > 143 145* 147* K 4.4 < > 4.3 4.0 4.1 CL 107 < > 106 109* 109* CO2 21 < > 26 28 25 BUN 38* -- -- 49* 55* CREATININE 1.93* -- -- 1.80* 1.78* GLUCOSE 138* -- -- 123* 121* CALCIUM 10.3 -- -- 10.7* 11.0* < > = values in this interval not displayed. Magnesium: No results found for: MG Phosphorus: Lab Results Component Value Date/Time PHOS 3.2 09/02/2021 12:25 PM Ionized Calcium: No results found for: CAION Urinalysis: Troponin: No results for input(s): TROPONINI in the last 72 hours. Microbiology: Cultures during this admission: Blood cultures: [] None drawn [] Negative [x] Positive (Details: Group C Strep ) Urine Culture: [] None drawn [] Negative [] Positive (Details: ) Sputum Culture: [] None drawn [] Negative [x] Positive (Details: MRSA ) Endotracheal aspirate: [] None drawn [] Negative [] Positive (Details: ) Other pertinent Labs: Radiology/Imaging: ASSESSMENT: Principal Problem: Cardiac tamponade Active Problems: Acute respiratory failure with hypoxia (HCC) Acute heart failure (HCC) Acute pulmonary edema (HCC) Pericardial effusion with cardiac tamponade Pericardial effusion Pleural effusion Rhinovirus infection Fever Sepsis due to Streptococcus species without acute organ dysfunction (HCC) Staphylococcus aureus pneumonia (HCC) Delirium Resolved Problems: * No resolved hospital problems. * PLAN: WEAN PER PROTOCOL: [] No [] Yes [] N/A DISCONTINUE ANY LABS: [] No [] Yes ICU PROPHYLAXIS: Stress ulcer: [] PPI Agent [] Y1Veana [] Sucralfate [] Other: VTE: [] Enoxaparin [] Unfract. Heparin Subcut [] EPC Cuffs NUTRITION: (Diet: Diet NPO ADULT TUBE FEEDING; Orogastric; Peptide Based High Protein; Continuous; 25; Yes; 0; Q 4 hours; 25; 30; Q 4 hours; Protein; Provide 1 Proteinex Protein Modular TWICE daily) HOME MEDICATIONS RECONCILED: [] No [] Yes INSULIN DRIP: [] No [] Yes CONSULTATION NEEDED: [] No [] Yes FAMILY UPDATED: [] No [] Yes TRANSFER OUT OF ICU: [] No [] Yes ADDITIONAL PLAN: Neuro: Open eyes but not able to follow commands Sedation: Fentanyl Pain control: Tylenol MRI Brain punctuate acute infarcts in cerebral hemisphere, right cerebral peduncle, central/L paramidline of the albino Will try to wean off fentanyl, roxicodone increased to 10 mg overnight CV: Telemetry BP and HR normal Off cardene drip Heme: H&H stable Resp: Maintain oxygen sats >92% Pulmonary toilet Vent and bg as above /Fluids/Electrolytes: BUN 55, Cr 1.78 Monitor UO, UO 4.5 L last 24 h US showed right kidney lesion MRI showed possible R kidney lesion Monitor electrolytes, replace PRN Lasix 40 mg q12h Stone's in place GI/Nutrition: Glycolax Ulcer Prophylaxis: H2 blockers Diet:Diet NPO ADULT TUBE FEEDING; Orogastric; Peptide Based High Protein; Continuous; 25; Yes; 0; Q 4 hours; 25; 30; Q 4 hours; Protein; Provide 1 Proteinex Protein Modular TWICE daily ID: Antimicrobials: Ceftaroline F/u wilson cultures MRSA + Rhino virus positive Resp cx pos for MRSA Blood cx pos for Group C strep B Repeat Blood cx No growth 5 days Endo: Monitor glucose 128 Prophylaxis: DVT: Heparin 5000, SCD GI: H2 blockers Braden Francois MD Department of Critical Care [facility] [place] 09/06/2021, 7:14 AM Attending Physician Statement I have discussed the care of Elias Walker, including pertinent history and exam findings with the resident. I have reviewed the salguero elements of all parts of the encounter with the resident. I have seen and examined the patient with the resident. I agree with the assessment and plan and status of the problem list as documented. I seen the patient during around today, chart reviewed, labs and medications reviewed overnight events noted per Patient has been on fentanyl drip 50 mcg and Precedex 1.5 mcg. No hypotension was reported overnight. Urine output remains good 4.5 L in last 24-hour he is on Lasix 20 mg twice daily which was reduced by nephrology, creatinine is 1.78 sodium is increasing 147. Last chest x-ray on 09/04/21 shows right-sided pleural effusion. Remained on ventilator PRVC/20/440/5/40 percent ABG 7.3 //29. Patient has been more awake since yesterday fentanyl drip was weaned down from 150 mcg to 50 mcg this morning and he is on Precedex drip although on a lower dose he is also on oxycodone 10 mg every 6 hours. Is currently on ceftaroline currently afebrile T-max was 99. He is on CPAP/pressure support tolerating it well respiratory rate is 22 now and tidal volume is around 600. Alert and awake and follows command with me. Will extubate. He is on ceftaroline per infectious disease. Will extubate. To wean down Precedex drip post extubation. Discontinue fentanyl drip. Discussed with ICU nursing staff, treatment and plan discussed. Discussed with respiratory therapist. Total critical care time caring for this patient with life threatening, unstable organ failure, including direct patient contact, management of life support systems, review of data including imaging and labs, discussions with other team members and physicians at least 40 min so far today, excluding procedures. Please note that this chart was generated using voice recognition [employer] dictation software. Although every effort was made to ensure the accuracy of this automated foam molder, some errors in foam molder may have occurred. Shun Cervantes MD 09/06/2021 10:53 AM Pharmacy Note Renal Dose Adjustment Elias Walker is a 36 y.o. male. Pharmacist assessment of renally cleared medications. Recent Labs 09/04/21 0548 09/05/21 0448 BUN 38* 49* Recent Labs 09/04/21 0548 09/05/21 0448 CREATININE 1.93* 1.80* Estimated Creatinine Clearance: 62 mL/min (A) (based on SCr of 1.8 mg/dL (H)). Height: Ht Readings from Last 1 Encounters: 09/03/21 5' 4 (1.626 m) Weight: Wt Readings from Last 1 Encounters: 09/05/21 231 lb 11.3 oz (105.1 kg) The following medication dose has been adjusted based upon renal function per P&T Guidelines: Famotidine 20 mg daily changed to 20 mg BID Lynda Jimenez PharmD, [facility] 09/05/2021 2:05 PM [facility] IN-PATIENT SERVICE NEUROLOGY PROGRESS NOTE Date: 09/05/2021 Patient name: Elias Walker Date of admission: 08/29/2021 Date of : 1985 Interval History: MRI of brain 09/04/2021 reported the following: Impression 1. Punctate acute infarcts are noted in the cerebral hemispheres, right cerebral peduncle, and central/left paramidline of the albino. Given the multivessel distribution, these are concerning for embolic infarcts. 2. 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 3. Scattered paranasal sinus disease with bilateral mastoid effusions, likely related to intubation. 4. Small area of blooming artifact associated with an infarct in the posterior deep white matter of the right frontal lobe is likely related to sequela of remote hemorrhage. MRI of cervical spine 09/04/2021 reported the following Impression 1. No cervical spinal cord lesion is identified. 2. Mild central spinal canal narrowing at C6-C7 where there is a 2 mm right paracentral disc protrusion. 3. The orogastric tube is coiled in the patient's pharynx. This could be repositioned for more optimal placement. I reviewed these images personally and agree with radiology report. Patient's punctate acute infarcts are relatively limited in size number and distribution. Findings are concerning for septic emboli. At least 1 small area of prior deep white matter remote hemorrhage also noted. At this point patient is receiving antibiotic therapy according to infectious disease. Patient is also noted to have had a CESAR completed on 09/02/2021 referred to last cardiology note indicating no vegetations or source of emboli. Patient has had no evidence of distal emboli in skin fingers toes. Patient continues to have compromise of renal function. The above studies were without contrast. No anticoagulant therapy is instituted in the setting of septic emboli at this time. I did discuss this case with the ICU team. History of Present Illness: The patient is a 36 y.o. male who presents with Shortness of Breath ([facility], cardiac tamponade) and Chest Pain . The patient was seen and examined and the chart was reviewed. This patient had a recent history of hypertension which appear to be uncontrolled. He also developed shortness of breath and chest pain. He had been evaluated at outside hospital and sent home with management for his hypertension but presented to [facility] for management of shortness of breath and chest pain. Patient was noted to have respiratory distress and developed delirium. He received oral intubation. He was found to have group C streptococcal septicemia as well as MRSA. Infectious disease also noted rhinovirus infection. There is some question is whether or not he had a skin infection dorsum of right hand preceding these events. Patient has been sedated with fentanyl and propofol. Propofol was changed to Precedex. Patient had waxing and waning neurologic function with mostly unresponsive state. Yesterday bilateral Babinski's noted. Patient was sent for an MRI. 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 3 day duration Past Surgical History: Past Surgical History: Procedure Laterality Date PENIS SURGERY 01/31/2016 decompression of priapism, penis shunt Medications during admission: vitamin D 50,000 Units Per NG tube Weekly QUEtiapine 25 mg Per NG tube Nightly oxyCODONE 5 mg Per NG tube Q6H famotidine 20 mg Per G Tube Daily heparin (porcine) 5,000 Units SubCUTAneous 3 times per day ceftaroline fosamil (TEFLARO) IVPB 400 mg IntraVENous Q12H [Held by provider] carvedilol 6.25 mg Oral BID sodium chloride flush 5-40 mL IntraVENous 2 times per day Physical Exam: BP 108/65 Pulse 74 Temp 99.1 F (37.3 C) (Oral) Resp 20 Ht 5' 4 (1.626 m) Wt 231 lb 11.3 oz (105.1 kg) SpO2 97% BMI 39.77 kg/m Temp (24hrs), Av.8 F (37.1 C), Min:98.2 F (36.8 C), Max:99.5 F (37.5 C) Neurological examination: Mental status Patient is lightly sedated with fentanyl and Precedex at this time. He is able to briefly open his eyes to focus on examiner. He can follow commands right and left side. To my evaluation he seems slightly less active on the left than the right. Cranial nerves II -pupils reactive. 4 mm III, IV, extraocular muscles intact Alert and looking at examiner when he confused the images; no QUINTEN; no nystagmus; no ptosis V -intact corneals bilaterally VII - normal facial symmetry VIII - intact hearing IX, X -not tested XI -not testable XII -not testable Motor function waxing and waning mentation makes exact documentation of strength somewhat difficult. He seems to be moving right side slightly better than the left to my evaluation Sensory function Intact to touch bilaterally. Mildly noxious stimuli required to move feet. Cerebellar no tremors or changes in tone Reflex function suppressed reflexes all 4 extremities. Today there is a weak upgoing toe on the left and minimal response on right Gait not testable Diagnostics: Laboratory Testing: CBC: Recent Labs 09/03/21 0642 09/04/21 0548 09/05/21 0448 WBC 8.9 9.2 8.0 HGB 12.2* 12.1* 12.0* PLT 244 403 305 BMP: Recent Labs 09/03/21 0642 09/03/21 0642 09/04/21 0548 09/04/21 1622 09/05/21 0448 NA 140 < > 142 143 145* K 4.4 < > 4.4 4.3 4.0 CL 109* < > 107 106 109* CO2 21 < > 21 26 28 BUN 36* -- 38* -- 49* CREATININE 1.99* -- 1.93* -- 1.80* GLUCOSE 83 -- 138* -- 123* < > = values in this interval not displayed. Lab Results Component Value Date TRIG (H) 09/02/2021 ALT 13 08/30/2021 AST 20 08/30/2021 No results found for: PHENYTOIN, PHENYTOIN, VALPROATE, CBMZ Impression: 1. Encephalopathy with altered level of consciousness. Patient also sedated 2. Evidence of multiple acute micro emboli both hemispheres and brainstem likely septic emboli 3. 1 small area of remote/prior hemorrhage noted deep white matter right frontal lobe 4. Group C streptococcal septicemia and MRSA pneumonia. Currently receiving treatment per ID. 5. Oral intubation. Plan: Agree with decision to not anticoagulate the patient or use antiplatelet agents in the setting. Continue supportive care and treatment of underlying sepsis. Neurology will continue to follow Artur Quiñones MD [facility] [place] [facility] Renal Progress Note Patient : Elias Walker; 36 y.o. Location: 3002/3002-01 Attending: Brian Gracia MD Admit Date: 08/29/2021 Hospital Day: 7 Subjective: Patient was seen and examined at bedside. He is currently intubated and sedated. FiO2 40% with a PEEP of 5 His neuro status is waxing and waning per nursing, at times he will follow commands and other times is having spontaneous movements. Creatinine slightly improved to1.80 today, peaked at 1.99 on 09/03/21. Calcium trending up, is 10.7 today. Currently on calcium carb-cholecalciferol and ergocalciferol. His lasix was discontinued yesterday. 3.1 L out of the last 24 hours, net -4.2L since admission, Stone catheter in place, urine yellow and clear. Labs: Sodium 145, potassium 4.0, chloride 109, bicarb 28, creatinine 1.80, calcium 10.7, UPC 764mg/dl Outpatient Medications: Medications Prior to Admission: loratadine-pseudoephedrine (CLARITIN-D 24 HOUR) 10-240 MG per extended release tablet, Take 1 tablet by mouth daily cephALEXin (KEFLEX) 500 MG capsule, Take 1 capsule by mouth 3 times daily docusate sodium (COLACE) 100 MG capsule, Take 1 capsule by mouth 2 times daily as needed for Constipation oxyCODONE-acetaminophen (PERCOCET) 5-325 MG per tablet, Take 1-2 tablets by mouth every 4 hours as needed for Pain Current Medications: Scheduled Meds: vitamin D 50,000 Units Per NG tube Weekly QUEtiapine 25 mg Per NG tube Nightly calcium carb-cholecalciferol 1 tablet Oral Daily oxyCODONE 5 mg Per NG tube Q6H famotidine 20 mg Per G Tube Daily heparin (porcine) 5,000 Units SubCUTAneous 3 times per day ceftaroline fosamil (TEFLARO) IVPB 400 mg IntraVENous Q12H [Held by provider] carvedilol 6.25 mg Oral BID sodium chloride flush 5-40 mL IntraVENous 2 times per day Continuous Infusions: dexmedetomidine 1.3 mcg/kg/hr (09/05/21 0952) fentaNYL 50 mcg/mL 150 mcg/hr (09/05/21 0954) sodium chloride 10 mL/hr at 09/05/21 0835 PRN Meds: fentanNYL, fentanNYL, sodium chloride flush, sodium chloride, ondansetron OR ondansetron, polyethylene glycol, acetaminophen OR acetaminophen Input/Output: I/O last 3 completed shifts: In: 3313.4 [I.V.:1837.7; NG/GT:1327; IV Piggyback:148.8] Out: 5305 [Urine:5305]. Patient Vitals for the past 96 hrs (Last 3 readings): Weight 09/05/21 0432 231 lb 11.3 oz (105.1 kg) 09/04/21 0600 231 lb 14.8 oz (105.2 kg) 09/03/21 0600 254 lb 13.6 oz (115.6 kg) Vital Signs: Temperature: Temp: 99.1 F (37.3 C) TMax: Temp (24hrs), Av.9 F (37.2 C), Min:98.2 F (36.8 C), Max:99.5 F (37.5 C) Respirations: Resp: 20 Pulse: Heart Rate: 61 BP: BP: 108/65 BP Range: Systolic (24hrs), Av , Min:95 , Max:164 Diastolic (24hrs), Av, Min:60, Max:111 Physical Examination: General: Intubated and sedated, restrained. FiO2 40% with a PEEP of 5 HEENT: Atraumatic, normocephalic, no throat congestion, moist mucosa. Neck: No JVD, no thyromegaly, no lymphadenopathy. Chest: Bilateral air entry on vent Cardiac: S1 S2 RR, no murmurs, gallops or rubs, JVP not raised. Abdomen: Soft, non-tender, no masses or organomegaly, BS sluggish. : No suprapubic or flank tenderness. Neuro: Spontaneous movements SKIN: No rashes, good skin turgor. Extremities: Trace edema, palpable peripheral pulses, no calf tenderness. Labs: Recent Labs 09/03/21 0642 09/04/21 0548 09/05/21 0448 WBC 8.9 9.2 8.0 RBC 4.18* 4.00* 4.19* HGB 12.2* 12.1* 12.0* HCT 39.7* 36.9* 38.1* MCV 95.0 92.3 90.9 MCH 29.2 30.3 28.6 MCHC 30.7 32.8 31.5 RDW 13.2 12.5 12.5 PLT 244 403 305 MPV 10.6 10.5 10.3 BMP: Recent Labs 09/03/21 0642 09/03/21 0642 09/04/21 0548 09/04/21 1622 09/05/21 0448 NA 140 < > 142 143 145* K 4.4 < > 4.4 4.3 4.0 CL 109* < > 107 106 109* CO2 21 < > 21 26 28 BUN 36* -- 38* -- 49* CREATININE 1.99* -- 1.93* -- 1.80* GLUCOSE 83 -- 138* -- 123* CALCIUM 10.1 -- 10.3 -- 10.7* < > = values in this interval not displayed. Phosphorus: Recent Labs 09/02/21 1225 PHOS 3.2 MARIO: Lab Results Component Value Date/Time MARIO NEGATIVE 08/30/2021 10:34 AM SPEP: Lab Results Component Value Date/Time PROT 5.8 09/02/2021 12:25 PM ALBCAL 3.1 09/02/2021 12:25 PM ALBPCT 53 09/02/2021 12:25 PM LABALPH 0.4 09/02/2021 12:25 PM LABALPH 0.8 09/02/2021 12:25 PM A1PCT 7 09/02/2021 12:25 PM A2PCT 13 09/02/2021 12:25 PM LABBETA 0.9 09/02/2021 12:25 PM BETAPCT 16 09/02/2021 12:25 PM GAMGLOB 0.7 09/02/2021 12:25 PM GGPCT 11 09/02/2021 12:25 PM PATH ELECTRONICALLY SIGNED. ZOE STERN M.D. 09/02/2021 12:25 PM PATH ELECTRONICALLY SIGNED. ZOE STERN M.D. 09/02/2021 12:25 PM C3: Lab Results Component Value Date/Time C3 183 09/02/2021 12:25 PM C4: Lab Results Component Value Date/Time C4 29 09/02/2021 12:25 PM MPO ANCA: Lab Results Component Value Date/Time MPO <0.3 08/30/2021 10:34 AM PR3 ANCA: Lab Results Component Value Date/Time PR3 0.9 08/30/2021 10:34 AM Anti-GBM: No results found for: GBMABIGG Hep BsAg: Lab Results Component Value Date/Time HEPBSAG NONREACTIVE 09/02/2021 12:25 PM Hep C AB: Lab Results Component Value Date/Time HEPCAB NONREACTIVE 09/02/2021 12:25 PM Urinalysis/Chemistries: Lab Results Component Value Date/Time NITRU NEGATIVE 08/30/2021 10:36 AM COLORU Yellow 08/30/2021 10:36 AM PHUR 5.0 08/30/2021 10:36 AM WBCUA 20 TO 50 08/30/2021 10:36 AM RBCUA 2 TO 5 08/30/2021 10:36 AM SPECGRAV 1.020 08/30/2021 10:36 AM LEUKOCYTESUR MODERATE 08/30/2021 10:36 AM UROBILINOGEN Normal 08/30/2021 10:36 AM BILIRUBINUR NEGATIVE 08/30/2021 10:36 AM GLUCOSEU NEGATIVE 08/30/2021 10:36 AM KETUA NEGATIVE 08/30/2021 10:36 AM Urine Creatinine: Lab Results Component Value Date/Time LABCREA 129.7 09/02/2021 02:14 PM Radiology: CXR: Reviewed Assessment: 1. Acute Kidney Injury: Secondary to ischemic ATN from sepsis, low flow, left heart failure. Further aggravated by nephrotoxic agents including ibuprofen and Bactrim, recently receiving vancomycin. Levels have been stable at 1.7-1.8. Baseline creatinine not known, creatinine in 2018 was 0.8 which peaked up to 2 mg/dl and has been stable for about a week at that range. Nonoliguric although in positive balance last 2 shifts off the Lasix 2. Group C streptococcus bacteremia leading to sepsis, fevers and hypotension 3. Suspected MRSA pneumonia 4. Respiratory failure multifactorial, including MRSA pneumonia left heart failure fluid overload on the ventilator, further aggravated by encephalopathy 5. Respiratory acidosis 6. Cardiomyopathy likely nonischemic ejection fraction 35% 7. Morbid obesity sleep apnea suspect 8. Hypertension which was initially uncontrolled now appears to be hypotensive 9. Mild hypercalcemia of unclear etiology 10. Fluid overload Plan: 1. Avoid nephrotoxic agents 2. Restart Lasix 40 mg IV twice daily with persistent pulmonary edema and more intake than output last 2 shifts 3. Consider discontinuing vancomycin and using alternate agents if possible 4. Keep stone in place 5. Follow labs as ordered Nutrition Please ensure that patient is on a renal diet/TF. Avoid nephrotoxic drugs/contrast exposure. Uriel Grier MD [facility] 09/05/2021 Critical Care Team - Daily Progress Note Date and time: 09/05/2021 7:13 AM Patient's name: Elias Walker Patient's account/billing number: [id number] Patient's Date of : 1985 Age: 36 y.o. Date of Admission: 08/29/2021 1:02 AM Length of stay during current admission: 7 Primary Care Physician: No primary care provider on file. Code Status: Full Code Reason for ICU admission: Cardiac Tamponade SUBJECTIVE: OVERNIGHT EVENTS: No acute events overnight. T max 99.1, vss On Fentanyl 150 and Precedex 1.3 Ventilator setting Rate 20 Tidal Vol 440 PEEP 5 ABGs 7.348 pCO2 52.9 HCO3 28.3 Creatinine 1.80 down from 1.93 MRI brain revealed Punctate acute infarcts are noted in the cerebral hemispheres, right cerebral peduncle, and central/left paramidline of the albino. Given the multivessel distribution, these are concerning for embolic infarcts. Patient opened his eyes but not able to follow commands. AWAKE & FOLLOWING COMMANDS: [x] No [] Yes CURRENT VENTILATION STATUS: [x] Ventilator [] BIPAP [] Nasal Cannula [] Room Air IF INTUBATED, ET TUBE MARKING AT LOWER LIP: cms SECRETIONS Amount: [] Small [] Moderate [] Large [x] None Color: [] White [] Colored [] Bloody SEDATION: RAAS Score: [] Propofol gtt [] Versed gtt [] Ativan gtt [] No Sedation PARALYZED: [x] No [] Yes DIARRHEA: [] No [] Yes (C. Difficile status: [] positive [] negative [] pending) VASOPRESSORS: [x] No [] Yes If yes - [] Levophed [] Dopamine [] Vasopressin [] Dobutamine [] Phenylephrine [] Epinephrine CENTRAL LINES: [] No [] Yes (Date of Insertion: ) If yes - [] Right IJ [] Left IJ [] Right Femoral [] Left Femoral [] Right Subclavian [] Left Subclavian STONE'S CATHETER: [] No [x] Yes (Date of Insertion: ) URINE OUTPUT: [x] Good [] Low [] Anuric OBJECTIVE: VITAL SIGNS: BP 99/60 Pulse 62 Temp 98.4 F (36.9 C) (Oral) Resp 20 Ht 5' 4 (1.626 m) Wt 231 lb 11.3 oz (105.1 kg) SpO2 97% BMI 39.77 kg/m Tmax over 24 hours: Temp (24hrs), Av.9 F (37.2 C), Min:98.2 F (36.8 C), Max:99.5 F (37.5 C) Patient Vitals for the past 6 hrs: BP Temp Temp src Pulse Resp SpO2 Weight 09/05/21 0600 99/60 98.4 F (36.9 C) Oral 62 20 97 % 09/05/21 0552 63 22 99 % 09/05/21 0533 20 09/05/21 0500 126/76 63 20 98 % 09/05/21 0432 231 lb 11.3 oz (105.1 kg) 09/05/21 0400 129/79 99.1 F (37.3 C) Oral 65 20 99 % 09/05/21 0330 66 20 100 % 09/05/21 0300 139/81 68 20 100 % 09/05/21 0200 126/80 98.7 F (37.1 C) Oral 67 20 100 % Intake/Output Summary (Last 24 hours) at 09/05/2021 0713 Last data filed at 09/05/2021 0700 Gross per 24 hour Intake 2235.69 ml Output 3185 ml Net -949.31 ml Wt Readings from Last 2 Encounters: 09/05/21 231 lb 11.3 oz (105.1 kg) 09/01/21 244 lb (110.7 kg) Body mass index is 39.77 kg/m . PHYSICAL EXAMINATION: Constitutional: Appears well, no distress EENT: PERRLA, EOMI, sclera clear, no lesions, neck supple with midline trachea. Neck: Supple, symmetrical, trachea midline, no adenopathy, no jvd, skin normal Respiratory: clear to auscultation, no wheezes or rales and unlabored breathing. Cardiovascular: regular rate and rhythm, normal S1, S2, no murmur noted Abdomen: soft, nontender, nondistended, no masses or organomegaly Extremities: peripheral pulses normal, no pedal edema, no clubbing or cyanosis Neuro: unresponsive only opens eyes on painful stimuli Any additional physical findings: MEDICATIONS: Scheduled Meds: vitamin D 50,000 Units Per NG tube Weekly QUEtiapine 25 mg Per NG tube Nightly calcium carb-cholecalciferol 1 tablet Oral Daily oxyCODONE 5 mg Per NG tube Q6H famotidine 20 mg Per G Tube Daily heparin (porcine) 5,000 Units SubCUTAneous 3 times per day ceftaroline fosamil (TEFLARO) IVPB 400 mg IntraVENous Q12H [Held by provider] carvedilol 6.25 mg Oral BID sodium chloride flush 5-40 mL IntraVENous 2 times per day Continuous Infusions: dexmedetomidine 1.3 mcg/kg/hr (09/05/21699) fentaNYL 50 mcg/mL 150 mcg/hr (09/05/21699) sodium chloride 10 mL/hr at 09/05/21699 PRN Meds: fentanNYL, 50 mcg, Q1H PRN fentanNYL, 50 mcg, Q1H PRN sodium chloride flush, 5-40 mL, PRN sodium chloride, , PRN ondansetron, 4 mg, Q8H PRN Or ondansetron, 4 mg, Q6H PRN polyethylene glycol, 17 g, Daily PRN acetaminophen, 650 mg, Q6H PRN Or acetaminophen, 650 mg, Q6H PRN VENT SETTINGS (Comprehensive) (if applicable): Vent Information Ventilator ID: [id number] Vent Mode: PS/CPAP Additional Respiratory Assessments Heart Rate: 62 Resp: 20 SpO2: 97 % End Tidal CO2: 40 (%) Position: Semi-Pope's Humidification Source: HME Cuff Pressure (cm H2O): (medical concierge) Laboratory findings: Complete Blood Count: Recent Labs 09/03/21 0642 09/04/21 0548 09/05/21 0448 WBC 8.9 9.2 8.0 HGB 12.2* 12.1* 12.0* HCT 39.7* 36.9* 38.1* PLT 244 403 305 Last 3 Blood Glucose: Recent Labs 09/03/21 0642 09/04/21 0548 09/05/21 0448 GLUCOSE 83 138* 123* PT/INR: No results found for: PROTIME, INR PTT: No results found for: APTT, PTT Comprehensive Metabolic Profile: Recent Labs 09/02/21 0841 09/02/21 1225 09/03/21 0642 09/03/21 0642 09/04/21 0548 09/04/21 1622 09/05/21 0448 NA < > -- 140 < > 142 143 145* K < > -- 4.4 < > 4.4 4.3 4.0 CL < > -- 109* < > 107 106 109* CO2 < > -- 21 < > 21 26 28 BUN < > -- 36* -- 38* -- 49* CREATININE < > -- 1.99* -- 1.93* -- 1.80* GLUCOSE < > -- 83 -- 138* -- 123* CALCIUM < > -- 10.1 -- 10.3 -- 10.7* PROT -- 5.8* -- -- -- -- -- < > = values in this interval not displayed. Magnesium: No results found for: MG Phosphorus: Lab Results Component Value Date/Time PHOS 3.2 09/02/2021 12:25 PM Ionized Calcium: No results found for: CAION Urinalysis: Troponin: No results for input(s): TROPONINI in the last 72 hours. Microbiology: Cultures during this admission: Blood cultures: [] None drawn [] Negative [] Positive (Details: ) Urine Culture: [] None drawn [] Negative [] Positive (Details: ) Sputum Culture: [] None drawn [] Negative [] Positive (Details: ) Endotracheal aspirate: [] None drawn [] Negative [] Positive (Details: ) Other pertinent Labs: Radiology/Imaging: ASSESSMENT: Principal Problem: Cardiac tamponade Active Problems: Acute respiratory failure with hypoxia (HCC) Acute heart failure (HCC) Acute pulmonary edema (HCC) Pericardial effusion with cardiac tamponade Pericardial effusion Pleural effusion Rhinovirus infection Fever Sepsis due to Streptococcus species without acute organ dysfunction (HCC) Staphylococcus aureus pneumonia (HCC) Delirium Resolved Problems: * No resolved hospital problems. * PLAN: WEAN PER PROTOCOL: [] No [] Yes [] N/A DISCONTINUE ANY LABS: [] No [] Yes ICU PROPHYLAXIS: Stress ulcer: [] PPI Agent [] U9Qitor [] Sucralfate [] Other: VTE: [] Enoxaparin [] Unfract. Heparin Subcut [] EPC Cuffs NUTRITION: (Diet: Diet NPO ADULT TUBE FEEDING; Orogastric; Peptide Based High Protein; Continuous; 25; Yes; 0; Q 4 hours; 25; 30; Q 4 hours; Protein; Provide 1 Proteinex Protein Modular TWICE daily) HOME MEDICATIONS RECONCILED: [] No [] Yes INSULIN DRIP: [] No [] Yes CONSULTATION NEEDED: [] No [] Yes FAMILY UPDATED: [] No [] Yes TRANSFER OUT OF ICU: [] No [] Yes ADDITIONAL PLAN: Neuro: Open eyes but not able to follow commands Sedation: Fentanyl Pain control: Tylenol MRI Brain punctuate acute infarcts in cerebral hemisphere, right cerebral peduncle, central/L paramidline of the albino CV: Telemetry BP and HR normal Off cardene drip Heme: H&H stable Resp: Maintain oxygen sats >92% Pulmonary toilet Vent and bg as above /Fluids/Electrolytes: BUN 49, Cr 1.80 Monitor UO, UO 3.1 L last 24 h US showed right kidney lesion MRI showed possible R kidney lesion Monitor electrolytes, replace PRN Lasix discontinued due to increased UO Stone's in place IVF 50 ml/h GI/Nutrition: glycolax Ulcer Prophylaxis: H2 blockers Diet:Diet NPO ADULT TUBE FEEDING; Orogastric; Peptide Based High Protein; Continuous; 25; Yes; 0; Q 4 hours; 25; 30; Q 4 hours; Protein; Provide 1 Proteinex Protein Modular TWICE daily ID: Antimicrobials: Ceftaroline switched from vancomycin F/u wilson cultures MRSA + Rhino virus positive Resp cx pos for staph auerus Blood cx pos for strep B Repeat Blood cx No growth 4 days Endo: Monitor glucose 128 Prophylaxis: DVT: Heparin 5000, SCD GI: H2 blockers Braden Francois MD PGY2 Family Medicine Department of Critical Care [facility] 09/05/2021, 7:13 AM Attending Physician Statement I have discussed the care of Elias Walker, including pertinent history and exam findings with the resident. I have reviewed the salguero elements of all parts of the encounter with the resident. I have seen and examined the patient with the resident. I agree with the assessment and plan and status of the problem list as documented. I seen the patient during around today, chart reviewed, labs and medications reviewed overnight events noted to Patient is afebrile T-max is 99.1 in last 24 hours no hypotension. Mentation waxes and wane some time he has more eyes opening and more mobile and other times she is more lethargic. He continues to be on fentanyl 150 mcg and he is on Precedex 1.3 mcg. MRI of the brain was done and was consistent with acute infarcts multiple areas. Patient had been seen and followed by neurology did not think that patient needs anticoagulation they think that it is more septic emboli than cardioembolic. Patient had already had CESAR done without any vegetation. Urine output is 3.1 L in last 24-hour creatinine is 1.80 and sodium is 145. He is on Lasix. Will try to wean down fentanyl drip continue with Precedex continue with oxycodone may have to increase oxycodone to 7.5 mg every 6 hours. Continue monitor sodium urine output renal function follow-up with nephrology. Will need to inform infectious disease about neurology impression about possible septic emboli. Repeated cultures were negative. She is getting ceftaroline for the staph aureus and respiratory secretion. Discussed with ICU nursing staff, treatment and plan discussed. Discussed with respiratory therapist. Total critical care time caring for this patient with life threatening, unstable organ failure, including direct patient contact, management of life support systems, review of data including imaging and labs, discussions with other team members and physicians at least 35 min so far today, excluding procedures. Please note that this chart was generated using voice recognition [employer] dictation software. Although every effort was made to ensure the accuracy of this automated foam molder, some errors in foam molder may have occurred. Shun Cervantes MD 09/05/2021 12:19 PM Images from the original note were not included. [facility] Progress Note Elias Walker Date: 09/04/2021 LOS: 6 Reason for F/U : Febrile illness Impression : 1. Acute hypoxic respiratory failure currently ventilator dependent 2. Methicillin-resistant Staph aureus pneumonia 3. Group C streptococcal sepsis 1 of 2 sets of blood cultures group C streptococcal sepsis which is typically associated with skin infections 4. Hypertensive emergency resolved 5. Pericardial effusion status post pericardiocentesis with 35 to 40 cc of fluid drained 08/29/2021 CESAR done 09/02/2021 without any vegetations 6. Rhinovirus/enteroviral infection 7. Pulmonary edema 8. Intermittent fevers - unclear etiology 9. Multiple punctate acute infarcts multivessel distribution suggesting embolic phenomena 10. Obesity with obstructive sleep apnea 11. Acute kidney injury Recommendations: The patient initially was on cefepime and vancomycin 08/30/2021 through 09/02/2021 Switched to ceftaroline 09/03/2021 due to concerns for OZZIE worsening per the nephrology service. The intermittent fevers continue Repeat blood cultures 08/31/2021 remain negative at 3 days Infection Control Recommendations: Walker precautions Discharge Planning: Estimated Length of IV antimicrobials: To be determined Patient will need Midline Catheter Insertion/ PICC line Insertion: No Patient will need: Home IV , Infusion Center, SNF, LTAC: Undetermined Patient willneed outpatient wound care: No Medical Decision making / Summary of Stay: Elias Walker is a 36 y.o.-year-old male who was initially admitted on 08/29/2021. Elias is currently intubated and the history is obtained from his girlfriend who is sitting at bedside and from reviewing the chart. Elias has no insurance and does not typically follow with physicians and his girlfriend reports that the only medication that he takes is a Zyrtec for some seasonal allergies. She also reports that he does typically get recurrent cellulitis in his left lower extremity, and that he recently had a viral illness about 2 weeks ago which she also contracted and reports having some rhinorrhea and headaches. She also reports that about a week ago he had a soft tissue abscess in his right hand which he was able to express some purulence out of The patient is obese and there is concern for obstructive sleep apnea He was also recently diagnosed with hypertension started on Lopressor. The patient presented to the emergency department complaining of shortness of breath and work-up in the seem to suggest CHF and a CT and ultrasound showed possible RA collapse with pericardial effusion at an outside facility suggested tamponade The patient was transferred here for further evaluation due to the concerns for tamponade and in the ED was intubated for airway protection and noted to be hypertensive started on nitroglycerin drip He has since been seen by cardiology and an echocardiogram showed moderate pericardial effusion and technically challenging evaluation there was no evidence of tamponade noted. 35 to 40 cc of fluid drained at pericardiocentesis in the emergency department. The patient is being treated for pulmonary edema and during the hospital stay he has been noted to have had fevers with a T-max of 101.3 degrees and was started on empiric antimicrobial therapy and I was asked to evaluate and help with antibiotic choice. Current evaluation:09/04/2021 BP 120/68 Pulse 66 Temp 98.8 F (37.1 C) (Oral) Resp 20 Ht 5' 4 (1.626 m) Wt 231 lb 14.8 oz (105.2 kg) SpO2 98% BMI 39.81 kg/m Temperature Range: Temp: 98.8 F (37.1 C) Temp Av.3 F (37.4 C) Min: 98.4 F (36.9 C) Max: 100 F (37.8 C) The patient is seen and evaluated at bedside he remains on the ventilator at 30% FiO2 and 5 of PEEP. The patient continues to have some low-grade fevers to 37.8. The patient is on Precedex and fentanyl for sedation. He did receive some Roxicodone as well. He is not currently following commands for me though he does have some spontaneous movements. The patient did have a new finding of bilateral Babinski's by the neurology service had MRI of the brain done that showed multi vessel punctate acute infarcts There is a C6-C7 paracentral disc protrusion with some mild stenosis Review of Systems Unable to perform ROS: Intubated Physical Examination : Physical Exam Constitutional: Appearance: He is well-developed. He is obese. Interventions: He is sedated, intubated and restrained. HENT: Head: Normocephalic and atraumatic. Cardiovascular: Rate and Rhythm: Normal rate. Heart sounds: Normal heart sounds. No friction rub. No gallop. Pulmonary: Effort: Pulmonary effort is normal. He is intubated. Breath sounds: Normal breath sounds. No wheezing. Abdominal: General: Bowel sounds are normal. Palpations: Abdomen is soft. There is no mass. Tenderness: There is no abdominal tenderness. Musculoskeletal: Cervical back: Neck supple. Lymphadenopathy: Cervical: No cervical adenopathy. Skin: General: Skin is warm and dry. Laboratory data: I have independently reviewed the followinglabs: CBC with Differential: Recent Labs 09/03/21 0642 09/04/21 0548 WBC 8.9 9.2 HGB 12.2* 12.1* HCT 39.7* 36.9* PLT 244 403 LYMPHOPCT 19* 10* MONOPCT 11 10 BMP: Recent Labs 09/03/21 0642 09/04/21 0548 NA 140 142 K 4.4 4.4 CL 109* 107 CO2 21 21 BUN 36* 38* CREATININE 1.99* 1.93* Hepatic Function Panel: Recent Labs 09/02/21 1225 PROT 5.8* Lab Results Component Value Date/Time PROCAL 0.17 08/30/2021 10:34 AM PROCAL 0.12 08/29/2021 08:07 AM Lab Results Component Value Date/Time CRP 92.0 08/30/2021 10:34 AM No results found for: SEDRATE No results found for: DDIMER No results found for: FERRITIN No results found for: LDH No results found for: FIBRINOGEN Results in Past 30 Days Result Component Current Result Ref Range Previous Result Ref Range SARS-CoV-2, PCR Not Detected (08/30/2021) Not Detected Not in Time Range Lab Results Component Value Date/Time COVID19 Not Detected 08/30/2021 11:15 AM No results for input(s): VANCOTROUGH in the last 72 hours. Imaging Studies: MRI OF THE CERVICAL SPINE WITHOUT CONTRAST 09/04/2021 12:34 pm Impression 1. No cervical spinal cord lesion is identified. 2. Mild central spinal canal narrowing at C6-C7 where there is a 2 mm right paracentral disc protrusion. 3. The orogastric tube is coiled in the patient's pharynx. This could be reposition for more optimal placement. MRI OF THE BRAIN WITHOUT CONTRAST 09/04/2021 12:34 pm Impression 1. Punctate acute infarcts are noted in the cerebral hemispheres, right cerebral peduncle, and central/left paramidline of the albino. Given the multivessel distribution, these are concerning for embolic infarcts. 2. 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 3. Scattered paranasal sinus disease with bilateral mastoid effusions, likely related to intubation. 4. Small area of blooming artifact associated with an infarct in the posterior right frontal lobe, deep white matter, likely related to sequela of remote hemorrhage. ONE XRAY VIEW OF THE CHEST 09/04/2021 5:51 am Impression Supportive tubing is stable. Mild improvement in bilateral airspace disease, pulmonary edema favored over pneumonia. Small components of pleural effusion are possible. CESAR findings: 09/02/2021 LA: Normal SKIP: No thrombus RA: Normal RV: Normal LV: Normal Estimated LVEF: 50% Aorta: Mild atheromatous disease arch Pericardium: Small pericardial effusion Septum: No intracardiac shunt via color Doppler. Valves: Mitral Valve: Structurally normal. Mild to moderate regurgitation is identified. Aortic Valve: The aortic valve is trileaflet and opens adequately. No regurgitiation is identified. Tricuspid valve: Structurally normal. No regurgitation is identified. Pulmonary valve: Normal. No significant regurgitation No valvular vegetations or thrombus identified. Summary: 1. A CESAR was performed without complications. 2. LVEF 50% 3. No thrombus or valvular vegetation identified 4. No intracardiac shunt via color Doppler. 5. There were no complications encountered. Cardiovascular Diseases Fellow [facility] ONE XRAY VIEW OF THE CHEST 09/02/2021 6:50 am Impression Stable support lines Slight improvement in still moderate diffuse bilateral alveolar infiltrates related to improving edema and or infection with decrease in now small right pleural effusion and moderate left basilar pleuroparenchymal process MRI OF THE ABDOMEN WITHOUT CONTRAST, 09/01/2021 1:48 pm Impression 1. Optimal definitive characterization of renal lesions requires utilization of IV contrast. Bilateral circumscribed renal lesions which would be compatible with simple renal cysts on this unenhanced study Largest in the anteromedial lower pole right kidney 3.5 cm. This is probably what is partially imaged on the recent ultrasound. 2. The appears to be some pelvic ascites as seen on the coronal images. Also of note is some body wall edema, small right pleural effusion and cardiomegaly. Cultures: Culture, Body Fluid [[id number]] (Abnormal) Collected: 08/29/21 0342 Order Status: Completed Specimen: Body Fluid Updated: 09/04/21 1436 Specimen Description .FLUID .PERICARDIAL FLUID Direct Exam RARE NEUTROPHILS Abnormal NO BACTERIA SEEN Gram stain made from cytocentrifuged specimen. Organisms and cells will be concentrated. Culture NO GROWTH 6 DAYS Culture, Blood 1 [[id number]] Collected: 08/30/21 0953 Order Status: Completed Specimen: Blood Updated: 09/04/21 1024 Specimen Description .BLOOD Special Requests 10ML R ARM Culture NO GROWTH 5 DAYS Culture, Blood 1 [[id number]] Collected: 08/31/21 1515 Order Status: Completed Specimen: Blood Updated: 09/03/21612 Specimen Description .BLOOD Culture NO GROWTH 3 DAYS Culture, Blood 1 [[id number]] Collected: 08/31/21 1519 Order Status: Completed Specimen: Blood Updated: 09/03/21612 Specimen Description .BLOOD Culture NO GROWTH 3 DAYS Culture, Blood 1 [[id number]] (Abnormal) Collected: 08/30/21 1001 Order Status: Completed Specimen: Blood Updated: 08/31/21 2337 Specimen Description .BLOOD Special Requests 20ML R WRIST Culture POSITIVE Blood Culture Abnormal DIRECT GRAM STAIN FROM BOTTLE: GRAM POSITIVE COCCI IN CHAINS Detected: Streptococcus species (not S. agalactiae (Group B), S. pneumoniae, or S. pyogenes (Group A)) Culture Results to Follow Methodology- Polymerase Chain Reaction (PCR) STREPTOCOCCI, BETA HEMOLYTIC GROUP C Abnormal (NOTE) Direct Gram Stain from bottle and Polymerase Chain Reaction (PCR) results called to and read back by: BAUTISTA Greenfield at 0425 on 08/31/21 Culture, Respiratory [[id number]] (Abnormal) Collected: 08/30/21 2341 Order Status: Completed Specimen: Endotracheal Updated: 09/02/21827 Specimen Description .ENDOTRACHEAL Direct Exam >10, <25 NEUTROPHILS/LPF < 10 EPITHELIAL CELLS/LPF PREDOMINANT ORGANISM: GRAM POSITIVE COCCI IN CLUSTERS Abnormal MIXED BACTERIAL MORPHOTYPES ALSO PRESENT ON GRAM STAIN. Abnormal Culture METHICILLIN RESISTANT STAPHYLOCOCCUS AUREUS HEAVY GROWTH Abnormal NORMAL RESPIRATORY JAMES LIGHT GROWTH Methicillin-Resistant Staphylococcus aureus (1) Antibiotic Interpretation Microscan Method Status penicillin Resistant >=0.5 BACTERIAL SUSCEPTIBILITY PANEL JULIÁN Final clindamycin Sensitive <=0.25 BACTERIAL SUSCEPTIBILITY PANEL JULIÁN Final erythromycin Sensitive <=0.25 BACTERIAL SUSCEPTIBILITY PANEL JULIÁN Final gentamicin Sensitive <=0.5 BACTERIAL SUSCEPTIBILITY PANEL JULIÁN Final Gentamicin is used only in combination with other active agents that test susceptible. levofloxacin Sensitive <=0.12 BACTERIAL SUSCEPTIBILITY PANEL JULIÁN Final oxacillin Resistant >=4 BACTERIAL SUSCEPTIBILITY PANEL JULIÁN Final tetracycline Sensitive <=1 BACTERIAL SUSCEPTIBILITY PANEL JULIÁN Final trimethoprim-sulfamethoxazole Sensitive <=10 BACTERIAL SUSCEPTIBILITY PANEL JULIÁN Final vancomycin Sensitive 1 BACTERIAL SUSCEPTIBILITY PANEL JULIÁN Final Specimen Collected: 08/30/21 23:41 Last Resulted: 09/02/21 08:28 MRSA DNA Probe, Nasal [[id number]] (Abnormal) Collected: 08/29/21 0813 Order Status: Completed Specimen: Nasal Updated: 08/30/21 1509 Specimen Description .NASAL SWAB MRSA, DNA, Nasal POSITIVE: MRSA DNA detected by nucleic acid amplification. Abnormal Comment: Results should be used as an adjunct to nosocomial control efforts to identify patients needing enhanced precautions. The test is not intended to identify patients with staphylococcal infections. Results should not be used to guide or monitor treatment for MRSA infections. Respiratory Panel, Molecular, with COVID-19 (Restricted: peds pts or suitable admitted adults) [[id number]] (Abnormal) Collected: 08/30/21 1115 Order Status: Completed Specimen: Nasopharyngeal Swab Updated: 08/30/21 1203 Specimen Description .NASOPHARYNGEAL SWAB Adenovirus PCR Not Detected Coronavirus 229E PCR Not Detected Coronavirus HKU1 PCR Not Detected Coronavirus NL63 PCR Not Detected Coronavirus OC43 PCR Not Detected SARS-CoV-2, PCR Not Detected Human Metapneumovirus PCR Not Detected Rhino/Enterovirus PCR DETECTED Abnormal Influenza A by PCR Not Detected Influenza B by PCR Not Detected Parainfluenza 1 PCR Not Detected Parainfluenza 2 PCR Not Detected Parainfluenza 3 PCR Not Detected Parainfluenza 4 PCR Not Detected Resp Syncytial Virus PCR Not Detected Bordetella Parapertussis Not Detected B Pertussis by PCR Not Detected Chlamydia pneumoniae By PCR Not Detected Mycoplasma pneumo by PCR Not Detected Comment: Performed by multiplexed nucleic acid assay. Medications: vitamin D 50,000 Units Per NG tube Weekly QUEtiapine 25 mg Per NG tube Nightly calcium carb-cholecalciferol 1 tablet Oral Daily oxyCODONE 5 mg Per NG tube Q6H famotidine 20 mg Per G Tube Daily heparin (porcine) 5,000 Units SubCUTAneous 3 times per day furosemide 40 mg IntraVENous BID ceftaroline fosamil (TEFLARO) IVPB 400 mg IntraVENous Q12H [Held by provider] carvedilol 6.25 mg Oral BID sodium chloride flush 5-40 mL IntraVENous 2 times per day [facility] Ashish Henao MD [employer] OFFICE: Thank you for allowing us to participate in the care of this patient. Please call with questions. This note iscreated with the assistance of a speech recognition program. While intending to generate a document that actually reflects the content of the visit, the document can still have some errors including those of syntax andsound a like substitutions which may escape proof reading. In such instances, actual meaning can be extrapolated by contextual diversion. Images from the original note were not included. Physical Therapy Physical Therapy Cancel Note DATE: 09/04/2021 NAME: Elias Walker : 1985 Patient not seen this date for Physical Therapy due to: Per nurse, patient is not following commands. Intubated. Renal Progress Note Patient : Elias Walker; 36 y.o. Location: 3002/3002-01 Attending: Brian Gracia MD Admit Date: 08/29/2021 Hospital Day: 6 Subjective: Patient was seen and examined at bedside. He is currently intubated sedated with fentanyl and Precedex. He is having more spontaneous movement per nursing, MRI planned Creatinine 1.93 today, was 1.99 yesterday FiO2 40% with a PEEP of [address], urine yellow and clear, 2.5 L out of the last 24 hours, net -3.4 L since admission, on IV Lasix Weight today inconsistent, likely error CXR this morning shows mild improvement in bilateral airspace, pulmonary edema favored over pneumonia. Small components of pleural effusions are possible. Labs: Sodium 142, potassium 4.4, chloride 107, bicarb 21, creatinine 1.93, 1.99 yesterday, calcium 10.3, UPC 764mg/dl Outpatient Medications: Medications Prior to Admission: loratadine-pseudoephedrine (CLARITIN-D 24 HOUR) 10-240 MG per extended release tablet, Take 1 tablet by mouth daily cephALEXin (KEFLEX) 500 MG capsule, Take 1 capsule by mouth 3 times daily docusate sodium (COLACE) 100 MG capsule, Take 1 capsule by mouth 2 times daily as needed for Constipation oxyCODONE-acetaminophen (PERCOCET) 5-325 MG per tablet, Take 1-2 tablets by mouth every 4 hours as needed for Pain Current Medications: Scheduled Meds: vitamin D 50,000 Units Per NG tube Weekly QUEtiapine 25 mg Per NG tube Nightly calcium carb-cholecalciferol 1 tablet Oral Daily oxyCODONE 5 mg Per NG tube Q6H famotidine 20 mg Per G Tube Daily heparin (porcine) 5,000 Units SubCUTAneous 3 times per day furosemide 40 mg IntraVENous BID ceftaroline fosamil (TEFLARO) IVPB 400 mg IntraVENous Q12H [Held by provider] carvedilol 6.25 mg Oral BID sodium chloride flush 5-40 mL IntraVENous 2 times per day Continuous Infusions: dexmedetomidine 1.3 mcg/kg/hr (09/04/21925) fentaNYL 50 mcg/mL 175 mcg/hr (09/04/21 0747) sodium chloride 10 mL/hr at 09/04/21 0825 PRN Meds: fentanNYL, fentanNYL, sodium chloride flush, sodium chloride, ondansetron OR ondansetron, polyethylene glycol, acetaminophen OR acetaminophen Input/Output: I/O last 3 completed shifts: In: 3808.5 [I.V.:2115.1; NG/GT:1309; IV Piggyback:384.4] Out: 6400 [Urine:6400]. Patient Vitals for the past 96 hrs (Last 3 readings): Weight 09/04/21 0600 231 lb 14.8 oz (105.2 kg) 09/03/21 0600 254 lb 13.6 oz (115.6 kg) 09/02/21 0600 259 lb 14.8 oz (117.9 kg) Vital Signs: Temperature: Temp: 99.5 F (37.5 C) TMax: Temp (24hrs), Av.3 F (37.4 C), Min:98.4 F (36.9 C), Max:100 F (37.8 C) Respirations: Resp: 20 Pulse: Heart Rate: 79 BP: BP: (!) 152/97 BP Range: Systolic (24hrs), Av , Min:115 , Max:157 Diastolic (24hrs), Av, Min:65, Max:127 Physical Examination: General: Intubated and sedated, restrained. FiO2 40% with a PEEP of 5 HEENT: Atraumatic, normocephalic, no throat congestion, moist mucosa. Neck: No JVD, no thyromegaly, no lymphadenopathy. Chest: Bilateral air entry on vent Cardiac: S1 S2 RR, no murmurs, gallops or rubs, JVP not raised. Abdomen: Soft, non-tender, no masses or organomegaly, BS sluggish. : No suprapubic or flank tenderness. Neuro: Spontaneous movements SKIN: No rashes, good skin turgor. Extremities: Trace edema, palpable peripheral pulses, no calf tenderness. Labs: Recent Labs 09/02/21 0841 09/03/21 0642 09/04/21 0548 WBC 11.0 8.9 9.2 RBC 4.01* 4.18* 4.00* HGB 11.5* 12.2* 12.1* HCT 38.7* 39.7* 36.9* MCV 96.5 95.0 92.3 MCH 28.7 29.2 30.3 MCHC 29.7 30.7 32.8 RDW 13.5 13.2 12.5 PLT 228 244 403 MPV 10.7 10.6 10.5 BMP: Recent Labs 09/02/21 0841 09/03/21 0642 09/04/21 0548 NA 139 140 142 K 4.7 4.4 4.4 CL 110* 109* 107 CO2 20 21 21 BUN 31* 36* 38* CREATININE 1.86* 1.99* 1.93* GLUCOSE 84 83 138* CALCIUM 10.0 10.1 10.3 Phosphorus: Recent Labs 09/02/21 1225 PHOS 3.2 MARIO: Lab Results Component Value Date/Time MARIO NEGATIVE 08/30/2021 10:34 AM SPEP: Lab Results Component Value Date/Time PROT 5.8 09/02/2021 12:25 PM ALBCAL 3.1 09/02/2021 12:25 PM ALBPCT 53 09/02/2021 12:25 PM LABALPH 0.4 09/02/2021 12:25 PM LABALPH 0.8 09/02/2021 12:25 PM A1PCT 7 09/02/2021 12:25 PM A2PCT 13 09/02/2021 12:25 PM LABBETA 0.9 09/02/2021 12:25 PM BETAPCT 16 09/02/2021 12:25 PM GAMGLOB 0.7 09/02/2021 12:25 PM GGPCT 11 09/02/2021 12:25 PM PATH ELECTRONICALLY SIGNED. ZOE STERN M.D. 09/02/2021 12:25 PM PATH ELECTRONICALLY SIGNED. ZOE STERN M.D. 09/02/2021 12:25 PM C3: Lab Results Component Value Date/Time C3 183 09/02/2021 12:25 PM C4: Lab Results Component Value Date/Time C4 29 09/02/2021 12:25 PM MPO ANCA: Lab Results Component Value Date/Time MPO <0.3 08/30/2021 10:34 AM PR3 ANCA: Lab Results Component Value Date/Time PR3 0.9 08/30/2021 10:34 AM Anti-GBM: No results found for: GBMABIGG Hep BsAg: Lab Results Component Value Date/Time HEPBSAG NONREACTIVE 09/02/2021 12:25 PM Hep C AB: Lab Results Component Value Date/Time HEPCAB NONREACTIVE 09/02/2021 12:25 PM Urinalysis/Chemistries: Lab Results Component Value Date/Time NITRU NEGATIVE 08/30/2021 10:36 AM COLORU Yellow 08/30/2021 10:36 AM PHUR 5.0 08/30/2021 10:36 AM WBCUA 20 TO 50 08/30/2021 10:36 AM RBCUA 2 TO 5 08/30/2021 10:36 AM SPECGRAV 1.020 08/30/2021 10:36 AM LEUKOCYTESUR MODERATE 08/30/2021 10:36 AM UROBILINOGEN Normal 08/30/2021 10:36 AM BILIRUBINUR NEGATIVE 08/30/2021 10:36 AM GLUCOSEU NEGATIVE 08/30/2021 10:36 AM KETUA NEGATIVE 08/30/2021 10:36 AM Urine Creatinine: Lab Results Component Value Date/Time LABCREA 129.7 09/02/2021 02:14 PM Radiology: CXR: Reviewed Assessment: 1. Acute Kidney Injury: Secondary to ischemic ATN from sepsis, low flow, left heart failure. Further aggravated by nephrotoxic agents including ibuprofen and Bactrim, recently receiving vancomycin. Levels have been stable at 17.8. Baseline creatinine not known, creatinine in 2018 was 0.8 which peaked up to 2 mg/dl and has been stable for about a week at that range. Nonoliguric although in positive balance 2. Group C streptococcus bacteremia leading to sepsis, fevers and hypotension 3. Suspected MRSA pneumonia 4. Respiratory failure multifactorial, including MRSA pneumonia left heart failure fluid overload on the ventilator, further aggravated by encephalopathy 5. Respiratory acidosis 6. Cardiomyopathy likely nonischemic ejection fraction 35% 7. Morbid obesity sleep apnea suspect 8. Hypertension which was initially uncontrolled now appears to be hypotensive 9. Mild hypercalcemia of unclear etiology 10. Fluid overload Plan: 1. Avoid nephrotoxic agents 2. Discontinue IV Lasix with copious urine output and reassess in the a.m. 3. Consider discontinuing vancomycin and using alternate agents if possible 4. Keep stone in place 5. Follow labs as ordered Nutrition Please ensure that patient is on a renal diet/TF. Avoid nephrotoxic drugs/contrast exposure. We will continue to follow along with you. Attending Physician Statement I have discussed the care of Elias Walker, including pertinent history and exam findings with the RECREATION SUPERVISOR. I have reviewed the salguero elements of all parts of the encounter with the RECREATION SUPERVISOR. I have seen and examined the patient. I agree with the assessment and plan and status of the problem list as documented. Uriel Grier MD Nephrology Attending Physician [facility] 09/04/2021 [facility] Neurology IN-PATIENT SERVICE NEUROLOGY PROGRESS NOTE Date: 09/04/2021 Patient name: Elias Walker Date of admission: 08/29/2021 Date of : 1985 Interval History: Is currently sedated with fentanyl and Precedex. He also had received Versed this morning. Patient has shown to have continued agitation when sedation is decreased. Modifications and sedation therapy are currently underway. Patient remains orally intubated. Additional information shows that the patient was taking unprescribed Percocet, Adipex, and an antianxiety medication. Patient seems to have a high drug tolerance at this time. Patient continues to have MRSA which is being treated. He has impaired renal function (OZZIE) and he has had recent history of uncontrolled hypertension and a pericardial effusion. Patient remains unable to communicate at this time. History of Present Illness: The patient is a 36 y.o. male who presents with Shortness of Breath ([facility] tx, cardiac tamponade) and Chest Pain . The patient was seen and examined and the chart was reviewed. This patient is currently orally intubated ventilated and sedated with fentanyl and propofol. Patient is being changed over to Precedex with discontinuance of propofol. Patient is unable to provide information on his own behalf. Review of case with attending physician, nurse and medical records show that this patient has had difficulties with rhino virus upper respiratory infection as noted by infectious disease. Patient has not had COVID. Patient has been seeking medical attention for management of significant hypertension. During course of management he had had number of hospitalizations from hypertension. Eventually developed shortness of breath and chest pain which was multifactorial. He was transferred from [facility] due to concern for pericardial effusion versus cardiac tamponade on 08/29/2021. He did have 37 cc of fluid removed from the pericardium. Cardiology has seen the patient and indicated that they did not think he had tamponade. Patient was eventually demonstrated to have staff aureus pneumonia. He developed respiratory failure requiring intubation and ventilation. Because patient has demonstrated agitated combative delirium and required significant sedation with 150 - 200 of fentanyl and propofol neurology has been consulted. 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 3 day duration Past Surgical History: Past Surgical History: Procedure Laterality Date PENIS SURGERY 01/31/2016 decompression of priapism, penis shunt Medications during admission: calcium carb-cholecalciferol 1 tablet Oral Daily vitamin D 50,000 Units Per NG tube Weekly QUEtiapine 25 mg Per NG tube Nightly calcium carb-cholecalciferol 1 tablet Oral Daily famotidine 20 mg Per G Tube Daily heparin (porcine) 5,000 Units SubCUTAneous 3 times per day furosemide 40 mg IntraVENous BID ceftaroline fosamil (TEFLARO) IVPB 400 mg IntraVENous Q12H [Held by provider] carvedilol 6.25 mg Oral BID sodium chloride flush 5-40 mL IntraVENous 2 times per day Physical Exam: BP 123/65 Pulse 69 Temp 99.5 F (37.5 C) (Oral) Resp 20 Ht 5' 4 (1.626 m) Wt 231 lb 14.8 oz (105.2 kg) SpO2 98% BMI 39.81 kg/m Temp (24hrs), Av.3 F (37.4 C), Min:98.4 F (36.9 C), Max:100 F (37.8 C) Neurological examination: Mental status Sedated. Not responding to loud verbal stimuli or shaking. Cranial nerves II -pupils are 5 mm in size and reactive. There does appear to be a blink reflex present. III, IV, extraocular muscles intact gaze is conjugate in primary position V -appears to have symmetric blink VII - normal facial symmetry VIII -no response IX, X -not testable XI -not testable XII -not tested Motor function and active no response although nurses report that he has moved all 4 extremities and agitated fashion when sedation is reduced Sensory function no response in current sedated state Cerebellar not testable Reflex function suppressed all 4 extremities except for marked bilateral Babinski right greater than left Gait not testable Diagnostics: Laboratory Testing: CBC: Recent Labs 09/02/21 0841 09/03/21 0642 09/04/21 0548 WBC 11.0 8.9 9.2 HGB 11.5* 12.2* 12.1* PLT 228 244 403 BMP: Recent Labs 09/02/21 0841 09/03/21 0642 09/04/21 0548 NA 139 140 142 K 4.7 4.4 4.4 CL 110* 109* 107 CO2 20 21 21 BUN 31* 36* 38* CREATININE 1.86* 1.99* 1.93* GLUCOSE 84 83 138* Lab Results Component Value Date TRIG (H) 09/02/2021 ALT 13 08/30/2021 AST 20 08/30/2021 Impression: 1. Patient is currently sedated. 2. New finding today of bilateral Babinski's right greater than left. 3. Sepsis/MRSA pneumonia 4. OZZIE 5. Recent hypertensive urgency 6. Orally intubated and ventilated Plan: MRI of brain and cervical cord will be obtained today Neurology will follow Artur Quiñones MD [facility] Neurology Critical Care Team - Daily Progress Note Date and time: 09/04/2021 7:20 AM Patient's name: Elias Walker Patient's account/billing number: [id number] Patient's Date of : 1985 Age: 36 y.o. Date of Admission: 08/29/2021 1:02 AM Length of stay during current admission: 6 Primary Care Physician: No primary care provider on file. Code Status: Full Code Reason for ICU admission: Cardiac Tamponade SUBJECTIVE: OVERNIGHT EVENTS: Patient is vitally stable UO improved from yesterday 4.9L (2 ml/kg/h) >3.2L (1.2 ml/kg/h) No hypotension, On fentanyl 175 mcg, off propofol and Precedex 1.3 CXR showed improved bilateral airspace disease. Received versed overnight for agitation AWAKE & FOLLOWING COMMANDS: [x] No [] Yes CURRENT VENTILATION STATUS: [x] Ventilator [] BIPAP [] Nasal Cannula [] Room Air IF INTUBATED, ET TUBE MARKING AT LOWER LIP: cms SECRETIONS Amount: [] Small [] Moderate [] Large [x] None Color: [] White [] Colored [] Bloody SEDATION: RAAS Score: [] Propofol gtt [] Versed gtt [] Ativan gtt [] No Sedation PARALYZED: [x] No [] Yes DIARRHEA: [] No [] Yes (C. Difficile status: [] positive [] negative [] pending) VASOPRESSORS: [x] No [] Yes If yes - [] Levophed [] Dopamine [] Vasopressin [] Dobutamine [] Phenylephrine [] Epinephrine CENTRAL LINES: [] No [] Yes (Date of Insertion: ) If yes - [] Right IJ [] Left IJ [] Right Femoral [] Left Femoral [] Right Subclavian [] Left Subclavian STONE'S CATHETER: [] No [x] Yes (Date of Insertion:09/02/21 ) URINE OUTPUT: [x] Good [] Low [] Anuric OBJECTIVE: VITAL SIGNS: BP (!) 143/79 Pulse 72 Temp 98.9 F (37.2 C) (Oral) Resp 21 Ht 5' 4 (1.626 m) Wt 231 lb 14.8 oz (105.2 kg) SpO2 100% BMI 39.81 kg/m Tmax over 24 hours: Temp (24hrs), Av.5 F (37.5 C), Min:98.4 F (36.9 C), Max:100.2 F (37.9 C) Patient Vitals for the past 6 hrs: BP Temp Temp src Pulse Resp SpO2 Weight 09/04/21 0700 (!) 143/79 72 21 100 % 09/04/21 0616 74 20 100 % 09/04/21 0606 75 21 97 % 09/04/21 0600 (!) 145/80 76 22 96 % 231 lb 14.8 oz (105.2 kg) 09/04/21 0500 (!) 143/127 82 22 96 % 09/04/21 0446 20 09/04/21 0400 115/70 98.9 F (37.2 C) Oral 87 21 99 % 09/04/21 0321 94 24 98 % 09/04/21 0318 28 09/04/21 0300 (!) 141/80 94 28 96 % 09/04/21 0200 130/72 98.4 F (36.9 C) Oral 72 20 99 % Intake/Output Summary (Last 24 hours) at 09/04/2021 0720 Last data filed at 09/04/2021 0700 Gross per 24 hour Intake 2568.97 ml Output 4950 ml Net -2381.03 ml Wt Readings from Last 2 Encounters: 09/04/21 231 lb 14.8 oz (105.2 kg) 09/01/21 244 lb (110.7 kg) Body mass index is 39.81 kg/m . PHYSICAL EXAMINATION: Constitutional: Appears well, no distress EENT: PERRLA, EOMI, sclera clear, no lesions, neck supple with midline trachea. Neck: Supple, symmetrical, trachea midline, no adenopathy, no jvd, skin normal Respiratory: clear to auscultation, no wheezes or rales and unlabored breathing. Cardiovascular: regular rate and rhythm, normal S1, S2, no murmur noted Abdomen: soft, nontender, nondistended, no masses or organomegaly Extremities: peripheral pulses normal, no pedal edema, no clubbing or cyanosis Neuro: unresponsive only opens eyes on painful stimuli Any additional physical findings: MEDICATIONS: Scheduled Meds: famotidine 20 mg Per G Tube Daily heparin (porcine) 5,000 Units SubCUTAneous 3 times per day furosemide 40 mg IntraVENous BID ceftaroline fosamil (TEFLARO) IVPB 400 mg IntraVENous Q12H [Held by provider] carvedilol 6.25 mg Oral BID sodium chloride flush 5-40 mL IntraVENous 2 times per day Continuous Infusions: dexmedetomidine 1.5 mcg/kg/hr (09/04/21699) fentaNYL 50 mcg/mL 175 mcg/hr (09/04/21699) sodium chloride 10 mL/hr at 09/04/21699 PRN Meds: fentanNYL, 50 mcg, Q1H PRN fentanNYL, 50 mcg, Q1H PRN sodium chloride flush, 5-40 mL, PRN sodium chloride, , PRN ondansetron, 4 mg, Q8H PRN Or ondansetron, 4 mg, Q6H PRN polyethylene glycol, 17 g, Daily PRN acetaminophen, 650 mg, Q6H PRN Or acetaminophen, 650 mg, Q6H PRN VENT SETTINGS (Comprehensive) (if applicable): Vent Information Ventilator ID: [id number] Vent Mode: PS/CPAP Additional Respiratory Assessments Heart Rate: 72 Resp: 21 SpO2: 100 % End Tidal CO2: 42 (%) Position: Semi-Pope's Humidification Source: HME Cuff Pressure (cm H2O): (medical concierge) Laboratory findings: Complete Blood Count: Recent Labs 09/02/21 0841 09/03/21 0642 09/04/21 0548 WBC 11.0 8.9 9.2 HGB 11.5* 12.2* 12.1* HCT 38.7* 39.7* 36.9* PLT 228 244 403 Last 3 Blood Glucose: Recent Labs 09/02/21 0841 09/03/21 0642 09/04/21 0548 GLUCOSE 84 83 138* PT/INR: No results found for: PROTIME, INR PTT: No results found for: APTT, PTT Comprehensive Metabolic Profile: Recent Labs 09/02/21 0841 09/02/21 1225 09/03/21 0642 09/04/21 0548 NA 139 -- 140 142 K 4.7 -- 4.4 4.4 CL 110* -- 109* 107 CO2 20 -- 21 21 BUN 31* -- 36* 38* CREATININE 1.86* -- 1.99* 1.93* GLUCOSE 84 -- 83 138* CALCIUM 10.0 -- 10.1 10.3 PROT -- 5.8* -- -- Magnesium: No results found for: MG Phosphorus: Lab Results Component Value Date/Time PHOS 3.2 09/02/2021 12:25 PM Ionized Calcium: No results found for: CAION Urinalysis: Troponin: No results for input(s): TROPONINI in the last 72 hours. Microbiology: Cultures during this admission: Blood cultures: [] None drawn [] Negative [] Positive (Details: ) Urine Culture: [] None drawn [] Negative [] Positive (Details: ) Sputum Culture: [] None drawn [] Negative [] Positive (Details: ) Endotracheal aspirate: [] None drawn [] Negative [] Positive (Details: ) Other pertinent Labs: Radiology/Imaging: ASSESSMENT: Principal Problem: Cardiac tamponade Active Problems: Acute respiratory failure with hypoxia (HCC) Acute heart failure (HCC) Acute pulmonary edema (HCC) Pericardial effusion with cardiac tamponade Pericardial effusion Pleural effusion Rhinovirus infection Fever Sepsis due to Streptococcus species without acute organ dysfunction (HCC) Staphylococcus aureus pneumonia (HCC) Delirium Resolved Problems: * No resolved hospital problems. * PLAN: WEAN PER PROTOCOL: [] No [] Yes [] N/A DISCONTINUE ANY LABS: [] No [] Yes ICU PROPHYLAXIS: Stress ulcer: [] PPI Agent [] [id number] [] Sucralfate [] Other: VTE: [] Enoxaparin [x] Unfract. Heparin Subcut [] EPC Cuffs NUTRITION: (Diet: Diet NPO ADULT TUBE FEEDING; Orogastric; Peptide Based High Protein; Continuous; 25; Yes; 0; Q 4 hours; 25; 30; Q 4 hours; Protein; Provide 1 Proteinex Protein Modular TWICE daily) HOME MEDICATIONS RECONCILED: [] No [] Yes INSULIN DRIP: [] No [] Yes CONSULTATION NEEDED: [] No [] Yes FAMILY UPDATED: [] No [] Yes TRANSFER OUT OF ICU: [] No [] Yes ADDITIONAL PLAN: Neuro: Open eyes on sternal rub but mostly unresponsive Sedation: Fentanyl Pain control: Tylenol CV: Telemetry BP and HR normal Off cardene drip Heme: H&H stable Resp: Maintain oxygen sats >92% Pulmonary toilet Vent and bg as above /Fluids/Electrolytes: BUN 38, Cr 1.93 Monitor UO, UO 4.9 L last 24 h US showed right kidney lesion MRI showed possible R kidney lesion Monitor electrolytes, replace PRN Lasix BD Stone's in place IVF 50 ml/h GI/Nutrition: glycolax Ulcer Prophylaxis: H2 blockers Diet:Diet NPO ADULT TUBE FEEDING; Orogastric; Peptide Based High Protein; Continuous; 25; Yes; 0; Q 4 hours; 25; 30; Q 4 hours; Protein; Provide 1 Proteinex Protein Modular TWICE daily ID: Antimicrobials: Ceftaroline switched from vancomycin F/u wilson cultures Rhino virus positive Resp cx pos for staph auerus Blood cx pos for strep B Endo: Monitor glucose 139 Prophylaxis: DVT: Heparin 5000, SCD GI: H2 blockers Braden Francois MD Department of Critical Care [facility] [place] 09/04/2021, 7:20 AM Attending Physician Statement I have discussed the care of Elias Walker, including pertinent history and exam findings with the resident. I have reviewed the salguero elements of all parts of the encounter with the resident. I have seen and examined the patient with the resident. I agree with the assessment and plan and status of the problem list as documented. Overnight he does not have fever T-max of 100.2 last 24 hours did not have fever spike. No hypotension does not require pressor. He is on fentanyl 175 mcg and he is on Precedex 1.5 mcg to 1.3 mcg. Of urine output is good 4.9 L creatinine is 1.93. Apparently patient had a history of anxiety and takes some pain medication according to available history. HIV test is nonreactive. Patient is currently on ceftaroline per infectious disease. Ventilator setting PRVC/20/440/5/40 percent ABG 7.3 . Chest x-ray shows improving pulmonary edema much improved as compared to few days ago. Creatinine stable he is currently on Lasix 40 mg twice daily and has good urine output. Will start him on oxycodone 5 mg every 6 hours. Will try to wean fentanyl down. His mentation is improving opening eyes on fentanyl and Precedex but did not follow commands for me. He did follow command for the nursing staff later. MRI of the brain today and follow-up with neurology. Discussed with nursing staff, treatment and plan discussed. Discussed with respiratory therapist. Total critical care time caring for this patient with life threatening, unstable organ failure, including direct patient contact, management of life support systems, review of data including imaging and labs, discussions with other team members and physicians at least 40 min so far today, excluding procedures. Please note that this chart was generated using voice recognition [employer] dictation software. Although every effort was made to ensure the accuracy of this automated foam molder, some errors in foam molder may have occurred. Shun Cervantes MD 09/04/2021 9:46 AM Images from the original note were not included. [facility] Progress Note Elias Walker Date: 09/03/2021 LOS: 5 Reason for F/U : Febrile illness Impression : 1. Acute hypoxic respiratory failure currently ventilator dependent 2. Methicillin-resistant Staph aureus pneumonia 3. Group C streptococcal sepsis 1 of 2 sets of blood cultures group C streptococcal sepsis which is typically associated with skin infections 4. Hypertensive emergency resolved 5. Pericardial effusion status post pericardiocentesis with 35 to 40 cc of fluid drained 08/29/2021 CESAR done 09/02/2021 without any vegetations 6. Rhinovirus/enteroviral infection 7. Pulmonary edema 8. Fevers - unclear etiology 9. Obesity with obstructive sleep apnea 10. Acute kidney injury Recommendations: The patient continues on antimicrobial therapy. The patient initially was on cefepime and vancomycin and the cefepime was discontinued 09/01/2021 The vancomycin has been switched to ceftaroline 09/02/2021 due to concerns for OZZIE worsening per the nephrology service. The patient did again have a fever overnight and etiology is not entirely clear. Continue supportive therapy Infection Control Recommendations: Walker precautions Discharge Planning: Estimated Length of IV antimicrobials: To be determined Patient will need Midline Catheter Insertion/ PICC line Insertion: No Patient will need: Home IV , Infusion Center, SNF, LTAC: Undetermined Patient willneed outpatient wound care: No Medical Decision making / Summary of Stay: Elias Walker is a 36 y.o.-year-old male who was initially admitted on 08/29/2021. Elias is currently intubated and the history is obtained from his girlfriend who is sitting at bedside and from reviewing the chart. Elias has no insurance and does not typically follow with physicians and his girlfriend reports that the only medication that he takes is a Zyrtec for some seasonal allergies. She also reports that he does typically get recurrent cellulitis in his left lower extremity, and that he recently had a viral illness about 2 weeks ago which she also contracted and reports having some rhinorrhea and headaches. She also reports that about a week ago he had a soft tissue abscess in his right hand which he was able to express some purulence out of The patient is obese and there is concern for obstructive sleep apnea He was also recently diagnosed with hypertension started on Lopressor. The patient presented to the emergency department complaining of shortness of breath and work-up in the seem to suggest CHF and a CT and ultrasound showed possible RA collapse with pericardial effusion at an outside facility suggested tamponade The patient was transferred here for further evaluation due to the concerns for tamponade and in the ED was intubated for airway protection and noted to be hypertensive started on nitroglycerin drip He has since been seen by cardiology and an echocardiogram showed moderate pericardial effusion and technically challenging evaluation there was no evidence of tamponade noted. 35 to 40 cc of fluid drained at pericardiocentesis in the emergency department. The patient is being treated for pulmonary edema and during the hospital stay he has been noted to have had fevers with a T-max of 101.3 degrees and was started on empiric antimicrobial therapy and I was asked to evaluate and help with antibiotic choice. Current evaluation:09/03/2021 BP 138/89 Pulse 89 Temp 99.7 F (37.6 C) (Bladder) Resp 20 Ht 5' 4 (1.626 m) Wt 254 lb 13.6 oz (115.6 kg) SpO2 100% BMI 43.75 kg/m Temperature Range: Temp: 99.7 F (37.6 C) Temp Av.9 F (37.7 C) Min: 98.8 F (37.1 C) Max: 100.4 F (38 C) The patient is seen and evaluated at bedside he remains on the ventilator at 30% FiO2 and 5 of PEEP. The patient remains on sedation on propofol and fentanyl. The fevers are overall improved down to 100.4 degrees Review of Systems Unable to perform ROS: Intubated Physical Examination : Physical Exam Constitutional: Appearance: He is well-developed. He is obese. Interventions: He is sedated and intubated. HENT: Head: Normocephalic and atraumatic. Cardiovascular: Rate and Rhythm: Normal rate. Heart sounds: Normal heart sounds. No friction rub. No gallop. Pulmonary: Effort: Pulmonary effort is normal. He is intubated. Breath sounds: Normal breath sounds. No wheezing. Abdominal: General: Bowel sounds are normal. Palpations: Abdomen is soft. There is no mass. Tenderness: There is no abdominal tenderness. Musculoskeletal: Cervical back: Neck supple. Lymphadenopathy: Cervical: No cervical adenopathy. Skin: General: Skin is warm and dry. Laboratory data: I have independently reviewed the followinglabs: CBC with Differential: Recent Labs 09/02/21 0841 09/03/21 0642 WBC 11.0 8.9 HGB 11.5* 12.2* HCT 38.7* 39.7* PLT 228 244 LYMPHOPCT 19* 19* MONOPCT 12 11 BMP: Recent Labs 09/02/21 0841 09/03/21 0642 NA 139 140 K 4.7 4.4 CL 110* 109* CO2 20 21 BUN 31* 36* CREATININE 1.86* 1.99* Hepatic Function Panel: Recent Labs 09/02/21 1225 PROT 5.8* Lab Results Component Value Date/Time PROCAL 0.17 08/30/2021 10:34 AM PROCAL 0.12 08/29/2021 08:07 AM Lab Results Component Value Date/Time CRP 92.0 08/30/2021 10:34 AM No results found for: SEDRATE No results found for: DDIMER No results found for: FERRITIN No results found for: LDH No results found for: FIBRINOGEN Results in Past 30 Days Result Component Current Result Ref Range Previous Result Ref Range SARS-CoV-2, PCR Not Detected (08/30/2021) Not Detected Not in Time Range Lab Results Component Value Date/Time COVID19 Not Detected 08/30/2021 11:15 AM No results for input(s): VALORIE in the last 72 hours. Imaging Studies: The chest x-ray today is pending CESAR findings: 09/02/2021 LA: Normal SKIP: No thrombus RA: Normal RV: Normal LV: Normal Estimated LVEF: 50% Aorta: Mild atheromatous disease arch Pericardium: Small pericardial effusion Septum: No intracardiac shunt via color Doppler. Valves: Mitral Valve: Structurally normal. Mild to moderate regurgitation is identified. Aortic Valve: The aortic valve is trileaflet and opens adequately. No regurgitiation is identified. Tricuspid valve: Structurally normal. No regurgitation is identified. Pulmonary valve: Normal. No significant regurgitation No valvular vegetations or thrombus identified. Summary: 1. A CESAR was performed without complications. 2. LVEF 50% 3. No thrombus or valvular vegetation identified 4. No intracardiac shunt via color Doppler. 5. There were no complications encountered. Cardiovascular Diseases Fellow [facility] ONE XRAY VIEW OF THE CHEST 09/02/2021 6:50 am Impression Stable support lines Slight improvement in still moderate diffuse bilateral alveolar infiltrates related to improving edema and or infection with decrease in now small right pleural effusion and moderate left basilar pleuroparenchymal process MRI OF THE ABDOMEN WITHOUT CONTRAST, 09/01/2021 1:48 pm Impression 1. Optimal definitive characterization of renal lesions requires utilization of IV contrast. Bilateral circumscribed renal lesions which would be compatible with simple renal cysts on this unenhanced study Largest in the anteromedial lower pole right kidney 3.5 cm. This is probably what is partially imaged on the recent ultrasound. 2. The appears to be some pelvic ascites as seen on the coronal images. Also of note is some body wall edema, small right pleural effusion and cardiomegaly. Cultures: Culture, Body Fluid [[id number]] (Abnormal) Collected: 08/29/21 0342 Order Status: Completed Specimen: Body Fluid Updated: 09/03/21 0730 Specimen Description .FLUID .PERICARDIAL FLUID Direct Exam RARE NEUTROPHILS Abnormal NO BACTERIA SEEN Gram stain made from cytocentrifuged specimen. Organisms and cells will be concentrated. Culture NO GROWTH 5 DAYS Culture, Blood 1 [[id number]] Collected: 08/31/21 1515 Order Status: Completed Specimen: Blood Updated: 09/03/21612 Specimen Description .BLOOD Culture NO GROWTH 3 DAYS Culture, Blood 1 [[id number]] Collected: 08/31/21 1519 Order Status: Completed Specimen: Blood Updated: 09/03/21612 Specimen Description .BLOOD Culture NO GROWTH 3 DAYS Culture, Blood 1 [[id number]] Collected: 08/30/21 0953 Order Status: Completed Specimen: Blood Updated: 09/03/21612 Specimen Description .BLOOD Special Requests 10ML R ARM Culture NO GROWTH 4 DAYS Culture, Blood 1 [[id number]] (Abnormal) Collected: 08/30/21 1001 Order Status: Completed Specimen: Blood Updated: 08/31/21 2337 Specimen Description .BLOOD Special Requests 20ML R WRIST Culture POSITIVE Blood Culture Abnormal DIRECT GRAM STAIN FROM BOTTLE: GRAM POSITIVE COCCI IN CHAINS Detected: Streptococcus species (not S. agalactiae (Group B), S. pneumoniae, or S. pyogenes (Group A)) Culture Results to Follow Methodology- Polymerase Chain Reaction (PCR) STREPTOCOCCI, BETA HEMOLYTIC GROUP C Abnormal (NOTE) Direct Gram Stain from bottle and Polymerase Chain Reaction (PCR) results called to and read back by: BAUTISTA Greenfield at 0425 on 08/31/21 Culture, Respiratory [[id number]] (Abnormal) Collected: 08/30/21 2341 Order Status: Completed Specimen: Endotracheal Updated: 09/02/21 0828 Specimen Description .ENDOTRACHEAL Direct Exam >10, <25 NEUTROPHILS/LPF < 10 EPITHELIAL CELLS/LPF PREDOMINANT ORGANISM: GRAM POSITIVE COCCI IN CLUSTERS Abnormal MIXED BACTERIAL MORPHOTYPES ALSO PRESENT ON GRAM STAIN. Abnormal Culture METHICILLIN RESISTANT STAPHYLOCOCCUS AUREUS HEAVY GROWTH Abnormal NORMAL RESPIRATORY JAMES LIGHT GROWTH Methicillin-Resistant Staphylococcus aureus (1) Antibiotic Interpretation Microscan Method Status penicillin Resistant >=0.5 BACTERIAL SUSCEPTIBILITY PANEL JULIÁN Final clindamycin Sensitive <=0.25 BACTERIAL SUSCEPTIBILITY PANEL JULIÁN Final erythromycin Sensitive <=0.25 BACTERIAL SUSCEPTIBILITY PANEL JULIÁN Final gentamicin Sensitive <=0.5 BACTERIAL SUSCEPTIBILITY PANEL JULIÁN Final Gentamicin is used only in combination with other active agents that test susceptible. levofloxacin Sensitive <=0.12 BACTERIAL SUSCEPTIBILITY PANEL JULIÁN Final oxacillin Resistant >=4 BACTERIAL SUSCEPTIBILITY PANEL JULIÁN Final tetracycline Sensitive <=1 BACTERIAL SUSCEPTIBILITY PANEL JULIÁN Final trimethoprim-sulfamethoxazole Sensitive <=10 BACTERIAL SUSCEPTIBILITY PANEL JULIÁN Final vancomycin Sensitive 1 BACTERIAL SUSCEPTIBILITY PANEL JULIÁN Final Specimen Collected: 08/30/21 23:41 Last Resulted: 09/02/21 08:28 Culture, Blood 1 [[id number]] (Abnormal) Collected: 08/30/21 1001 Order Status: Completed Specimen: Blood Updated: 08/31/21 2337 Specimen Description .BLOOD Special Requests 20ML R WRIST Culture POSITIVE Blood Culture Abnormal DIRECT GRAM STAIN FROM BOTTLE: GRAM POSITIVE COCCI IN CHAINS Detected: Streptococcus species (not S. agalactiae (Group B), S. pneumoniae, or S. pyogenes (Group A)) Culture Results to Follow Methodology- Polymerase Chain Reaction (PCR) STREPTOCOCCI, BETA HEMOLYTIC GROUP C Abnormal (NOTE) Direct Gram Stain from bottle and Polymerase Chain Reaction (PCR) results called to and read back by: BAUTISTA Greenfield at 0425 on 08/31/21 MRSA DNA Probe, Nasal [[id number]] (Abnormal) Collected: 08/29/21 0813 Order Status: Completed Specimen: Nasal Updated: 08/30/21 1509 Specimen Description .NASAL SWAB MRSA, DNA, Nasal POSITIVE: MRSA DNA detected by nucleic acid amplification. Abnormal Comment: Results should be used as an adjunct to nosocomial control efforts to identify patients needing enhanced precautions. The test is not intended to identify patients with staphylococcal infections. Results should not be used to guide or monitor treatment for MRSA infections. Respiratory Panel, Molecular, with COVID-19 (Restricted: peds pts or suitable admitted adults) [[id number]] (Abnormal) Collected: 08/30/21 1115 Order Status: Completed Specimen: Nasopharyngeal Swab Updated: 08/30/21 1203 Specimen Description .NASOPHARYNGEAL SWAB Adenovirus PCR Not Detected Coronavirus 229E PCR Not Detected Coronavirus HKU1 PCR Not Detected Coronavirus NL63 PCR Not Detected Coronavirus OC43 PCR Not Detected SARS-CoV-2, PCR Not Detected Human Metapneumovirus PCR Not Detected Rhino/Enterovirus PCR DETECTED Abnormal Influenza A by PCR Not Detected Influenza B by PCR Not Detected Parainfluenza 1 PCR Not Detected Parainfluenza 2 PCR Not Detected Parainfluenza 3 PCR Not Detected Parainfluenza 4 PCR Not Detected Resp Syncytial Virus PCR Not Detected Bordetella Parapertussis Not Detected B Pertussis by PCR Not Detected Chlamydia pneumoniae By PCR Not Detected Mycoplasma pneumo by PCR Not Detected Comment: Performed by multiplexed nucleic acid assay. Respiratory Panel, Molecular, with COVID-19 (Restricted: peds pts or suitable admitted adults) [[id number]] Collected: 08/30/21 0930 Order Status: Canceled Specimen: Nasopharyngeal Swab Medications: [START ON 09/04/2021] famotidine 20 mg Per G Tube Daily heparin (porcine) 5,000 Units SubCUTAneous 3 times per day furosemide 40 mg IntraVENous BID ceftaroline fosamil (TEFLARO) IVPB 400 mg IntraVENous Q12H [Held by provider] carvedilol 6.25 mg Oral BID sodium chloride flush 5-40 mL IntraVENous 2 times per day [facility] Ashish Henao MD [employer] OFFICE: Thank you for allowing us to participate in the care of this patient. Please call with questions. This note iscreated with the assistance of a speech recognition program. While intending to generate a document that actually reflects the content of the visit, the document can still have some errors including those of syntax andsound a like substitutions which may escape proof reading. In such instances, actual meaning can be extrapolated by contextual diversion. Pharmacy Note Renal Dose Adjustment Elias Walker is a 36 y.o. male. Pharmacist assessment of renally cleared medications. Recent Labs 09/02/21 0841 09/03/21 0642 BUN 31* 36* Recent Labs 09/02/21 0841 09/03/21 0642 CREATININE 1.86* 1.99* Estimated Creatinine Clearance: 59 mL/min (A) (based on SCr of 1.99 mg/dL (H)). Estimated CrCl using [place] Body Weight: 42 mL/min (based on IBW 59.2 kg) Height: Ht Readings from Last 1 Encounters: 08/31/21 5' 4 (1.626 m) Weight: Wt Readings from Last 1 Encounters: 09/03/21 254 lb 13.6 oz (115.6 kg) The following medication dose has been adjusted based upon renal function per P&T Guidelines: Famotidine BID to daily Jocelyn Ferro PharmD [facility] 09/03/2021 1:13 PM Images from the original note were not included. Physical Therapy Physical Therapy Cancel Note DATE: 09/03/2021 NAME: Elias Walker : 1985 Patient not seen this date for Physical Therapy due to: Patient is not appropriate for PT evaluation/treatment at this time d/t int/sed, no commands. Comprehensive Nutrition Assessment Type and Reason for Visit: Reassess Nutrition Recommendations/Plan: Continue Current Tube Feeding at this time. Will monitor TF tolerance/adequacy and propofol rate- modify TF product/rate as needed. Malnutrition Assessment: Malnutrition Status: At risk for malnutrition Context: Acute Illness Findings of the 6 clinical characteristics of malnutrition: Energy Intake: Mild decrease in energy intake Weight Loss: No significant weight loss Body Fat Loss: No significant body fat loss Muscle Mass Loss: No significant muscle mass loss Fluid Accumulation: No significant fluid accumulation [place] Strength: Not Performed Nutrition Assessment: Chart reviewed. Pt remains on vent. Peptide Based High Protein TF started on 08/31/21; currently at 25 mL/hr (goal with propofol) and tolerating well per RN. Pt is to also receive 2 protein modulars/day; discussed with RN. No BM noted yet. Meds/labs reviewed. Nutrition Related Findings: No BM noted yet; Glycolax PRN ordered Wound Type: None Current Nutrition Intake & Therapies: Average Meal Intake: NPO Average Supplements Intake: NPO Diet NPO ADULT TUBE FEEDING; Orogastric; Peptide Based High Protein; Continuous; 25; Yes; 0; Q 4 hours; 25; 30; Q 4 hours; Protein; Provide 1 Proteinex Protein Modular TWICE daily Current Tube Feeding (TF) Orders: Feeding Route: Orogastric Formula: Peptide Based High Protein Schedule: Continuous Feeding Regimen: 25 mL/hr Additives/Modulars: Protein (BID) Current TF & Flush Orders Provides: Vital HP at 25 mL/hr + 2 proteinex protein modulars/nfh=731 kcal and 105 g pro/day Additional Calorie Sources: Propofol at 23.5 mL/hr (with possible increase per RN) =620 kcal/day Anthropometric Measures: Height: 5' 4 (162.6 cm) [place] Body Weight (IBW): 130 lbs (59 kg) Admission Body Weight: 246 lb 0.5 oz (111.6 kg) Current Body Weight: 254 lb 13.6 oz (115.6 kg), 196 % IBW. Weight Source: Bed Scale Current BMI (kg/m2): 43.7 Weight Adjustment For: No Adjustment BMI Categories: Obese Class 3 (BMI 40.0 or greater) Estimated Daily Nutrient Needs: Energy Requirements Based On: Kcal/kg Weight Used for Energy Requirements: Admission Energy (kcal/day): 6526-9160 kcal/day Weight Used for Protein Requirements: [place] Protein (g/day): 120 g/day Method Used for Fluid Requirements: Other (Comment) Fluid (ml/day): Per MD Nutrition Diagnosis: Inadequate oral intake related to impaired respiratory function as evidenced by NPO or clear liquid status due to medical condition,nutrition support - enteral nutrition Nutrition Interventions: Food and/or Nutrient Delivery:Continue Current Tube Feeding at this time. Will monitor TF tolerance/adequacy and propofol rate- modify TF as needed. Nutrition Education/Counseling: No recommendation at this time Coordination of Nutrition Care: Continue to monitor while inpatient Goals: Previous Goal Met: Goal(s) Achieved Goals: Initiate nutrition support,by next RD assessment Nutrition Monitoring and Evaluation: Behavioral-Environmental Outcomes: None Identified Food/Nutrient Intake Outcomes: Enteral Nutrition Intake/Tolerance Physical Signs/Symptoms Outcomes: Biochemical Data,Nutrition Focused Physical Findings,Skin,Weight,Fluid Status or Edema Discharge Planning: Too soon to determine JENNIFER WOLF RD, [place] Contact: Renal Progress Note Patient : Elias Walker; 36 y.o. Location: 3002/3002-01 Attending: Brian Gracia MD Admit Date: 08/29/2021 Hospital Day: 5 History of Present Illness: Elias Walker; 36 y.o. male with past medical history as mentioned below presented to the hospital with the chief complaint of chest pain and shortness of breath which has been going on for about a week or so. He has known history of hypertension diagnosed recently although noncompliant with medications. Patient does not follow-up with physicians due to lack of insurance and appears to have some lack of insight. He also has known history of morbid obesity. According to the records patient had recent viral illness about 2 weeks ago which his girlfriend also contracted. He had symptoms of rhinorrhea and headaches. About a week ago he had a soft tissue abscess in his right hand which he was able to express himself well although did not take any treatment. About a week ago he presented to [facility] with complaints of chest pain and shortness of breath, the pain was described as dull aching and retrosternal.. His creatinine on presentation in 27 August was 1.8. Prior to that creatinine 2018 was 0.8. He underwent CT scan of his chest with IV contrast which did not show any pulm embolism did show pericardial effusion. He was treated with antibiotics and discharged home on Bactrim and ibuprofen. He then presented back to the ER with worsening shortness of breath. He was found to be hypertensive with systolic pressure more than 180. Was placed on nitroglycerin drip and transferred to [facility]. Echocardiogram in the ER showed evidence of pericardial effusion, pericardiocentesis was attempted on 35 mL was drained. Subsequently he was intubated and placed on the ventilator. He has not been hypotensive. Blood cultures are now growing group C streptococcus. Sputum culture is growing staph RES. Chest x-ray showing evidence of infiltrate and also showing signs of fluid overload. 2D echocardiogram also showed presence of ejection fraction of 30%. In hospital has been placed on vancomycin has received total of 11 doses. Urine output fair although in positive balance. Creatinine has been fluctuating in the 1.7-1.9 range. Nephrology has been consulted for acute kidney injury and volume overload. Most recent blood gas showed a pH of 7.25 PCO2 of 49 PO2 of 93 and a bicarb of 21. Seen and examined today and is remains sedated and on the ventilator. Intake and output show significant only more output than input with intake 1.67 liters and output 3.22 liters.. Labs today showed a sodium sodium 139, potassium 4.4, bicarbonate 21 creatinine 2, calcium was 10.1 Urinalysis showed 2-5 RBCs 3+ protein moderate leukocyte. Ultrasound of the kidney was a difficult study due to body habitus but showed kidney size of 10.8 cm. Also showed presence of cyst, MRI scan confirmed presence of simple cyst bilaterally. Serological work-up shows negative MARIO negative ANCA titers and double-stranded DNA, His weight on admission was 111 kg now is 115.6 kg, better than yesterday. Past History/Allergies?Social History: Past Medical History: Diagnosis Date Priapism, unspecified 01/31/2016 3 day duration Allergies Allergen Reactions Food Watermelon, Honeydew, Cantelope Tomato Social History Socioeconomic History Marital status: Legally Spouse name: Not on file Number of children: Not on file Years of education: Not on file Highest education level: Not on file Occupational History Not on file Tobacco Use Smoking status: Current Every Day Smoker Packs/day: 1.00 Years: 15.00 Pack years: 15.00 Smokeless tobacco: Not on file Vaping Use Vaping Use: Every day Passive vaping exposure: Yes Substance and Sexual Activity Alcohol use: Yes Comment: socially Drug use: No Sexual activity: Yes Partners: Female Other Topics Concern Not on file Social History Narrative Not on file Social Determinants of Health Financial Resource Strain: Difficulty of Paying Living Expenses: Not on file Food Insecurity: Worried About Running Out of Food in the Last Year: Not on file Ran Out of Food in the Last Year: Not on file Transportation Needs: Lack of Transportation (Medical): Not on file Lack of Transportation (Non-Medical): Not on file Physical Activity: Days of Exercise per Week: Not on file Minutes of Exercise per Session: Not on file Stress: Feeling of Stress : Not on file Social Connections: Frequency of Communication with Friends and Family: Not on file Frequency of Social Gatherings with Friends and Family: Not on file Attends Synagogue Services: Not on file Active Member of Clubs or Organizations: Not on file Attends Club or Organization Meetings: Not on file Marital Status: Not on file Intimate Partner Violence: Fear of Current or Ex-Partner: Not on file Emotionally Abused: Not on file Physically Abused: Not on file Sexually Abused: Not on file Housing Stability: Unable to Pay for Housing in the Last Year: Not on file Number of Places Lived in the Last Year: Not on file Unstable Housing in the Last Year: Not on file Family History: No family history on file. Outpatient Medications: Medications Prior to Admission: loratadine-pseudoephedrine (CLARITIN-D 24 HOUR) 10-240 MG per extended release tablet, Take 1 tablet by mouth daily cephALEXin (KEFLEX) 500 MG capsule, Take 1 capsule by mouth 3 times daily docusate sodium (COLACE) 100 MG capsule, Take 1 capsule by mouth 2 times daily as needed for Constipation oxyCODONE-acetaminophen (PERCOCET) 5-325 MG per tablet, Take 1-2 tablets by mouth every 4 hours as needed for Pain Current Medications: Scheduled Meds: heparin (porcine) 5,000 Units SubCUTAneous 3 times per day furosemide 40 mg IntraVENous BID ceftaroline fosamil (TEFLARO) IVPB 400 mg IntraVENous Q12H famotidine 20 mg Per G Tube BID [Held by provider] carvedilol 6.25 mg Oral BID sodium chloride flush 5-40 mL IntraVENous 2 times per day Continuous Infusions: fentaNYL 50 mcg/mL 150 mcg/hr (09/03/21813) propofol 25 mcg/kg/min (09/03/21813) sodium chloride 10 mL/hr (09/03/21813) PRN Meds: fentanNYL, sodium chloride flush, sodium chloride, ondansetron OR ondansetron, polyethylene glycol, acetaminophen OR acetaminophen Review of Systems: Review of systems not possible as patient is on ventilator Input/Output: I/O last 3 completed shifts: In: 2906.4 [I.V.:1981.9; NG/GT:855; IV Piggyback:69.5] Out: 4025 [Urine:3825; Emesis/NG output:200] Patient Vitals for the past 96 hrs (Last 3 readings): Weight 09/03/21 0600 254 lb 13.6 oz (115.6 kg) 09/02/21 06 259 lb 14.8 oz (117.9 kg) 09/01/21 0600 244 lb 0.8 oz (110.7 kg) Vital Signs: Temperature: Temp: 100.2 F (37.9 C) TMax: Temp (24hrs), Av.8 F (37.7 C), Min:98.8 F (37.1 C), Max:100.4 F (38 C) Respirations: Resp: 24 Pulse: Heart Rate: (!) 114 BP: BP: (!) 158/135 BP Range: Systolic (24hrs), Av , Min:103 , Max:158 Diastolic (24hrs), Av, Min:58, Max:135 Physical Examination: General: Sedated on ventilator. FiO2 30% with a PEEP of 5 HEENT: Atraumatic, normocephalic, no throat congestion, moist mucosa. Eyes: Pupils equal, round and reactive to light, pallor, no icterus. Neck: No JVD, no thyromegaly, no lymphadenopathy. Chest: Air entry fair bilaterally, no crackles Cardiac: S1 S2 RR no murmurs Abdomen: Soft, non-tender, no masses or organomegally appreciable, BS sluggish. : No suprapubic or flank tenderness. Neuro: Sedated on ventilator. Skin: No rashes, good skin turgor Extremities: No pitting LE edema, palpable peripheral pulses, no cyanosis, no calf tenderness. Labs: Recent Labs 09/01/21 0512 09/02/21 0841 09/03/21 0642 WBC 9.4 11.0 8.9 RBC 3.81* 4.01* 4.18* HGB 10.9* 11.5* 12.2* HCT 33.8* 38.7* 39.7* MCV 88.7 96.5 95.0 MCH 28.6 28.7 29.2 MCHC 32.2 29.7 30.7 RDW 13.5 13.5 13.2 PLT 212 228 244 MPV 10.8 10.7 10.6 BMP: Recent Labs 09/01/21 0512 09/02/21 0841 09/03/21 0642 NA 140 139 140 K 4.2 4.7 4.4 CL 111* 110* 109* CO2 19* 20 21 BUN 22* 31* 36* CREATININE 1.71* 1.86* 1.99* GLUCOSE 102* 84 83 CALCIUM 9.3 10.0 10.1 Phosphorus: Recent Labs 09/02/21 1225 PHOS 3.2 Magnesium: No results for input(s): MG in the last 72 hours. Albumin: No results for input(s): LABALBU in the last 72 hours. BNP: No results found for: BNP MARIO: Lab Results Component Value Date/Time MARIO NEGATIVE 08/30/2021 10:34 AM SPEP: Lab Results Component Value Date/Time PROT 5.8 09/02/2021 12:25 PM ALBCAL PENDING 09/02/2021 12:25 PM ALBPCT PENDING 09/02/2021 12:25 PM LABALPH PENDING 09/02/2021 12:25 PM LABALPH PENDING 09/02/2021 12:25 PM A1PCT PENDING 09/02/2021 12:25 PM A2PCT PENDING 09/02/2021 12:25 PM LABBETA PENDING 09/02/2021 12:25 PM BETAPCT PENDING 09/02/2021 12:25 PM GAMGLOB PENDING 09/02/2021 12:25 PM GGPCT PENDING 09/02/2021 12:25 PM PATH PENDING 09/02/2021 12:25 PM UPEP: No results found for: LABPE C3: Lab Results Component Value Date/Time C3 183 09/02/2021 12:25 PM C4: Lab Results Component Value Date/Time C4 29 09/02/2021 12:25 PM MPO ANCA: Lab Results Component Value Date/Time MPO <0.3 08/30/2021 10:34 AM PR3 ANCA: Lab Results Component Value Date/Time PR3 0.9 08/30/2021 10:34 AM Anti-GBM: No results found for: GBMABIGG Hep BsAg: Lab Results Component Value Date/Time HEPBSAG NONREACTIVE 09/02/2021 12:25 PM Hep C AB: Lab Results Component Value Date/Time HEPCAB NONREACTIVE 09/02/2021 12:25 PM Urinalysis/Chemistries: Lab Results Component Value Date/Time NITRU NEGATIVE 08/30/2021 10:36 AM COLORU Yellow 08/30/2021 10:36 AM PHUR 5.0 08/30/2021 10:36 AM WBCUA 20 TO 50 08/30/2021 10:36 AM RBCUA 2 TO 5 08/30/2021 10:36 AM SPECGRAV 1.020 08/30/2021 10:36 AM LEUKOCYTESUR MODERATE 08/30/2021 10:36 AM UROBILINOGEN Normal 08/30/2021 10:36 AM BILIRUBINUR NEGATIVE 08/30/2021 10:36 AM GLUCOSEU NEGATIVE 08/30/2021 10:36 AM KETUA NEGATIVE 08/30/2021 10:36 AM Urine Sodium: No results found for: CHRISTIANO Urine Potassium: No results found for: KUR Urine Chloride: No results found for: CLUR Urine Osmolarity: No results found for: OSMOU Urine Protein: No results found for: TPU Urine Creatinine: Lab Results Component Value Date/Time LABCREA 129.7 09/02/2021 02:14 PM Urine Eosinophils: No components found for: UEOS Radiology: CXR: Assessment: 1. Acute Kidney Injury: Secondary to ischemic ATN from sepsis, low flow, left heart failure. Further aggravated by nephrotoxic agents including ibuprofen and Bactrim, recently receiving vancomycin. Levels have been stable at 17.8. Baseline creatinine not known, creatinine in 2018 was 0.8 which peaked up to 2 mg/dl and has been stable for about a week at that range. Nonoliguric although in positive balance 2. Group C streptococcus bacteremia leading to sepsis, fevers and hypotension 3. Suspected MRSA pneumonia 4. Respiratory failure multifactorial, including MRSA pneumonia left heart failure fluid overload on the ventilator, further aggravated by encephalopathy 5. Respiratory acidosis 6. Cardiomyopathy likely nonischemic ejection fraction 35% 7. Morbid obesity sleep apnea suspect 8. Hypertension which was initially uncontrolled now appears to be hypotensive 9. Mild hypercalcemia of unclear etiology 10. Ffluid overload Plan: 1. Avoid nephrotoxic agents 2. Continue Lasix 40 mg IV twice a day 3. Consider discontinuing vancomycin and using alternate agents if possible 4. We will check urine protein creatinine 5. Keep stone in place 6. Follow labs as ordered Nutrition Tube feeding per ICU team Uriel Grier MD Nephrology Attending Physician [facility] 09/03/2021 INTENSIVE CARE UNIT Resident Physician Progress Note Patient - Elias Walker Date of Admission - 08/29/2021 1:02 AM Date of Evaluation - 09/03/2021 Room and Bed Number - 3002/3002- Hospital Day - 5 SUBJECTIVE: OVERNIGHT EVENTS: Tmax 100.2. febrile. Vancomycin switched to ceftaroline per ID. CESAR performed was unremarkable EF > 50%, no thrombus or vegetation seen Patient is difficult to wean off. BP is 129/83, HTN emergency resolved TODAY: AWAKE & FOLLOWING COMMANDS: [x] No [] Yes SECRETIONS Amount: [] Small [] Moderate [] Large [] None Color: [] White [] Colored [] Bloody SEDATION: RAAS Score: [x] Propofol gtt [] Versed gtt [] Ativan gtt [] No Sedation PARALYZED: [x] No [] Yes VASOPRESSORS: [x] No [] Yes [] Levophed [] Dopamine [] Vasopressin [] Dobutamine [] Phenylephrine [] Epinephrine OBJECTIVE: VITAL SIGNS: BP 129/83 Pulse 88 Temp 100.2 F (37.9 C) (Core) Resp 23 Ht 5' 4 (1.626 m) Wt 254 lb 13.6 oz (115.6 kg) SpO2 98% BMI 43.75 kg/m Tmax over 24 hours: Temp (24hrs), Av.7 F (37.6 C), Min:98.8 F (37.1 C), Max:100.4 F (38 C) Patient Vitals for the past 8 hrs: BP Temp Temp src Pulse Resp SpO2 Weight 09/03/21 0600 129/83 100.2 F (37.9 C) CORE 88 23 98 % 254 lb 13.6 oz (115.6 kg) 09/03/21 0500 116/69 78 20 93 % 09/03/21 0400 118/68 100.4 F (38 C) CORE 79 20 96 % 09/03/21 0307 77 21 93 % 09/03/21 0300 119/67 77 21 94 % 09/03/21 0200 115/72 99.9 F (37.7 C) CORE 73 20 92 % 09/03/21 0100 111/67 76 20 93 % 09/03/21 0000 108/64 100.4 F (38 C) CORE 78 20 93 % Intake/Output Summary (Last 24 hours) at 09/03/2021 0717 Last data filed at 09/03/2021 0600 Gross per 24 hour Intake 1673.26 ml Output 3425 ml Net -1751.74 ml Date 09/03/21 0000 - 09/03/21 2359 Shift 1479-4382 3732-4977 5214-6242 24 Hour Total INTAKE I.V.(mL/kg) 866.5(7.5) 866.5(7.5) NG/GT(mL/kg) 313(2.7) 313(2.7) Shift Total(mL/kg) 1179.5(10.2) 1179.5(10.2) OUTPUT Urine(mL/kg/hr) 1450 1450 Shift Total(mL/kg) 1450(12.5) 1450(12.5) Weight (kg) 115.6 115.6 115.6 115.6 Wt Readings from Last 3 Encounters: 09/03/21 254 lb 13.6 oz (115.6 kg) 09/01/21 244 lb (110.7 kg) 01/31/16 231 lb (104.8 kg) Body mass index is 43.75 kg/m . PHYSICAL EXAM: GEN: no apparent distress EYES: Lids and lashes normal, pupils equal, round and reactive to light, extra ocular muscles intact, sclera clear, conjunctiva normal HEENT: Normocephalic, without obvious abnormality, atramatic, sinuses nontender on palpation, external ears without lesions, oral pharynx with moist mucus membranes, tonsils without erythema or exudates, gums normal and good dentition. LUNGS: No increased work of breathing, good air exchange, clear to auscultation bilaterally, no crackles or wheezing, intubated CV: Normal apical impulse, regular rate and rhythm, normal S1 and S2, no S3 or S4, and no murmur noted ABDOMEN: No scars, normal bowel sounds, soft, non-distended, non-tender, no masses palpated, no hepatosplenomegaly MSK: There is no redness, warmth, or swelling of the joints. Full range of motion noted. Motor strength is 5 out of 5 all extremities bilaterally. Tone is normal. NEURO:: sedated SKIN: No bruising or bleeding. Normal skin color, texture, and turgor. No redness, warmth, or swelling. No rashes, lesions, or abnormal moles. EXTREMITIES: No pedal or leg edema, no calf tenderness/swelling, no erythema, distal pulses intact MEDICATIONS: Scheduled Meds: heparin (porcine) 5,000 Units SubCUTAneous 3 times per day furosemide 40 mg IntraVENous BID ceftaroline fosamil (TEFLARO) IVPB 400 mg IntraVENous Q12H famotidine 20 mg Per G Tube BID [Held by provider] carvedilol 6.25 mg Oral BID sodium chloride flush 5-40 mL IntraVENous 2 times per day Continuous Infusions: fentaNYL 50 mcg/mL 150 mcg/hr (09/03/21599) propofol 40 mcg/kg/min (09/03/21624) sodium chloride 50 mL/hr at 08/31/21 0804 PRN Meds: fentanNYL, 50 mcg, Q1H PRN sodium chloride flush, 5-40 mL, PRN sodium chloride, , PRN ondansetron, 4 mg, Q8H PRN Or ondansetron, 4 mg, Q6H PRN polyethylene glycol, 17 g, Daily PRN acetaminophen, 650 mg, Q6H PRN Or acetaminophen, 650 mg, Q6H PRN VENT SETTINGS (Comprehensive) (if applicable): Vent Information Ventilator ID: [id number] Vent Mode: PRVC Additional Respiratory Assessments Heart Rate: 88 Resp: 23 SpO2: 98 % End Tidal CO2: 36 (%) Position: Semi-Pope's Humidification Source: HME Cuff Pressure (cm H2O): (medical concierge) ABGs: Lab Results Component Value Date/Time FIO2 30.0 09/03/2021 04:09 AM DATA: Complete Blood Count: Recent Labs 09/01/21 0512 09/02/21 0841 09/03/21 0642 WBC 9.4 11.0 8.9 RBC 3.81* 4.01* 4.18* HGB 10.9* 11.5* 12.2* HCT 33.8* 38.7* 39.7* MCV 88.7 96.5 95.0 MCH 28.6 28.7 29.2 MCHC 32.2 29.7 30.7 RDW 13.5 13.5 13.2 PLT 212 228 244 MPV 10.8 10.7 10.6 Last 3 Blood Glucose: Recent Labs 09/01/21 0512 09/02/21 0841 GLUCOSE 102* 84 PT/INR: No results found for: PROTIME, INR PTT: No results found for: APTT, PTT Comprehensive Metabolic Profile: Recent Labs 09/01/21 0512 09/02/21 0841 09/02/21 1225 NA 140 139 -- K 4.2 4.7 -- CL 111* 110* -- CO2 19* 20 -- BUN 22* 31* -- CREATININE 1.71* 1.86* -- GLUCOSE 102* 84 -- CALCIUM 9.3 10.0 -- PROT -- -- 5.8* Magnesium: No results found for: MG Phosphorus: Lab Results Component Value Date/Time PHOS 3.2 09/02/2021 12:25 PM Ionized Calcium: No results found for: CAION Urinalysis: Lab Results Component Value Date/Time NITRU NEGATIVE 08/30/2021 10:36 AM COLORU Yellow 08/30/2021 10:36 AM PHUR 5.0 08/30/2021 10:36 AM WBCUA 20 TO 50 08/30/2021 10:36 AM RBCUA 2 TO 5 08/30/2021 10:36 AM SPECGRAV 1.020 08/30/2021 10:36 AM LEUKOCYTESUR MODERATE 08/30/2021 10:36 AM UROBILINOGEN Normal 08/30/2021 10:36 AM BILIRUBINUR NEGATIVE 08/30/2021 10:36 AM GLUCOSEU NEGATIVE 08/30/2021 10:36 AM KETUA NEGATIVE 08/30/2021 10:36 AM HgBA1c: No results found for: LABA1C TSH: No results found for: TSH Lactic Acid: No results found for: LACTA Troponin: No results for input(s): TROPONINI in the last 72 hours. Microbiology: Blood Culture: No components found for: CBLOOD, CFUNGUSBL + strep B group Endotracheal asp postitve for staph aureus Other Labs: Radiology/Imaging: CESAR was unremarkable ASSESSMENT: Patient Active Problem List Diagnosis Date Noted Rhinovirus infection Fever Sepsis due to Streptococcus species without acute organ dysfunction (HCC) Staphylococcus aureus pneumonia (HCC) Acute heart failure (HCC) Acute pulmonary edema (HCC) Pericardial effusion with cardiac tamponade Pericardial effusion Pleural effusion Cardiac tamponade 08/29/2021 Acute respiratory failure with hypoxia (HCC) 08/29/2021 Priapism, unspecified 01/31/2016 PLAN: WEAN PER PROTOCOL: [] No [] Yes [] N/A ICU PROPHYLAXIS: Stress ulcer: [] PPI Agent [] [id number] [] Sucralfate [] Other: VTE: [] Enoxaparin [] Unfract. Heparin Subcut [] EPC Cuffs NUTRITION: [] NPO [] Tube Feeding (Specify: ) [] TPN [] PO HOME MEDS RECONCILED: [] No [] Yes CONSULTATION NEEDED: [] No [] Yes FAMILY UPDATED: [] No [] Yes TRANSFER OUT OF ICU: [] No [] Yes Plan: 1. Neurologic: Neuro intact Neuro checks per protocol Sedation: propofol and fentanyl Will see how responsive he is during sedation holiday Pain management: tylenol 2. Cardiovascular: Hemodynamically stable Off nicardipine gtt 3. Pulmonary: Maintain oxygen sats >92% Pulmonary toilet Vent and bg as above 4. GI/Nutrition glycolax Ulcer Prophylaxis: H2 blockers Diet:Diet NPO ADULT TUBE FEEDING; Orogastric; Peptide Based High Protein; Continuous; 25; Yes; 0; Q 4 hours; 25; 30; Q 4 hours; Protein; Provide 1 Proteinex Protein Modular TWICE daily 5. Renal/Fluid/Electrolyte IV Fluids: none I/O: In: 14.5 Out: 29.6 Cr 1.86 US showed right kidney lesion MRI showed possible R simple renal cysts. Monitor electrolytes, replace PRN Lasix BD Stone's in place IVF 50 ml/h 6. ID febrile ON tmax 102 Antimicrobials: Ceftaroline switched from vancomycin F/u wilson cultures Rhino virus positive Resp cx pos for staph auerus Blood cx pos for strep B 7. Hematology: stable 8. Endocrine: glucose controlled - most recent BGL is 9. DVT Prophylaxis SCD sleeves -thigh high Braden Francois MD Internal Medicine PGY2 09/03/2021 7:17 AM Attending Physician Statement I have discussed the care of Elias Walker, including pertinent history and exam findings with the resident. I have reviewed the salguero elements of all parts of the encounter with the resident. I have seen and examined the patient with the resident. I agree with the assessment and plan and status of the problem list as documented. I seen the patient during my round today, chart reviewed, labs and medications reviewed arterial blood gases and ventilator support seen. No overall change no hypotension. Patient was seen by nephrology started on diuretic Lasix 40 mg twice daily his creatinine increased to 1.99 today. Urine output was 3.2 L last 24 hours. Patient was started on ceftaroline from vancomycin by infectious disease. When I saw him he was on fentanyl 150 mcg and propofol 35 mcg when I saw him he was restless on his sedation moves nicely did not follow commands does not respond to name and no tracking of eyes. Ventilator setting PRVC/20/440/5/30 percent ABG was 7.3 //24. Will keep and try to wean fentanyl down. We will start him on Precedex drip and wean off propofol drip. Neurology evaluation for possibility of encephalitis possible need for MRI/EEG we will leave it up to neurology service about EEG if needed Will get chest x-ray tomorrow. Patient is currently on diuretic will need to monitor intake and output urine output and renal function. We will follow-up neurological status and mentation temperature and WBC count. Continue with ventilator support did not tolerate spontaneous breathing trial today Discussed with ICU nursing staff, treatment and plan discussed. Discussed with respiratory therapist. Total critical care time caring for this patient with life threatening, unstable organ failure, including direct patient contact, management of life support systems, review of data including imaging and labs, discussions with other team members and physicians at least 40 min so far today, excluding procedures. Please note that this chart was generated using voice recognition [employer] dictation software. Although every effort was made to ensure the accuracy of this automated foam molder, some errors in foam molder may have occurred. Shun Cervantes MD 09/03/2021 1:12 PM Images from the original note were not included. Susan Sales Account Executive Progress Note Date: 09/03/2021 Patient name: Elias Walker Date of admission: 08/29/2021 1:02 AM Date of : 1985 PCP: No primary care provider on file. Reason for Admission: Acute pulmonary edema (HCC) [J81.0] Cardiac tamponade [I31.4] Acute respiratory failure, unspecified whether with hypoxia or hypercapnia (HCC) [J96.00] Pericardial effusion with cardiac tamponade [I31.3, I31.4] Acute heart failure, unspecified heart failure type (HCC) [I50.9] Acute respiratory failure with hypoxia (HCC) [J96.01] Subjective: Clinical Changes / Abnormalities: Patient seen and examined at bedside. Continues to be intubated and sedated. Currently requiring 30% FiO2 on ventilator. Sedated with propofol and fentanyl. CESAR that was done yesterday was negative for any vegetation/thrombus and with small pericardial effusion. Ejection fraction was normal on CESAR. Patient is receiving ceftaroline for heavy growth of MRSA in sputum. Started on Lasix 40 mg twice daily per nephrology. 2.9 L urine output in last 24 hours. Blood pressure and heart rate are stable. No vasopressor requirement. Urine output in the last 24 hours: Intake/Output Summary (Last 24 hours) at 09/03/2021 0148 Last data filed at 09/03/2021 0000 Gross per 24 hour Intake 1666.83 ml Output 3675 ml Net -2008.17 ml Medications: Scheduled Meds: heparin (porcine) 5,000 Units SubCUTAneous 3 times per day furosemide 40 mg IntraVENous BID ceftaroline fosamil (TEFLARO) IVPB 400 mg IntraVENous Q12H famotidine 20 mg Per G Tube BID [Held by provider] carvedilol 6.25 mg Oral BID sodium chloride flush 5-40 mL IntraVENous 2 times per day Continuous Infusions: fentaNYL 50 mcg/mL 150 mcg/hr (09/02/21 2359) propofol 40 mcg/kg/min (09/02/21 2355) sodium chloride 50 mL/hr at 08/31/21 0804 CBC: Recent Labs 08/31/2145609/01/21 0512 09/02/21 0841 WBC 11.9* 9.4 11.0 HGB 11.0* 10.9* 11.5* PLT 195 212 228 BMP: Recent Labs 08/31/21 04509/01/21 0512 09/02/21 0841 NA 140 140 139 K 3.9 4.2 4.7 CL 110* 111* 110* CO2 20 19* 20 BUN 21* 22* 31* CREATININE 1.77* 1.71* 1.86* GLUCOSE 91 102* 84 Objective: Vitals: BP 111/67 Pulse 76 Temp 100.4 F (38 C) (Core) Resp 20 Ht 5' 4 (1.626 m) Wt 259 lb 14.8 oz (117.9 kg) SpO2 93% BMI 44.62 kg/m Constitutional and General Appearance: Intubated and sedated Respiratory: No for increased work of breathing. On auscultation: diminished breath sounds bilaterally ETT in place Cardiovascular: Regular S1 and S2. No murmurs Abdomen: No masses or tenderness Bowel sounds present Extremities: No Cyanosis or Clubbing Lower extremity edema: No Neurological: Intubated and sedated DATA: Diagnostics: ECHO: Repeat Limited ECHO 08/29/21 Summary Limited Echo Global left ventricular systolic function appears moderately reduced. Estimated ejection fraction is 30-35 % . Moderate pericardial effusion is seen, there appears to be no significant change compared to previous echo. Mitral and tricuspid inflows show no evidence of tamponade physiology. No obvious RA or RV collapse noted. RV appears to have improved filling compared to prior echo (showed underfilling). IVC is normal size. Summary Technically challenging echo, there is poor windows, poor visualization of LV gavin, cannot comment on specific wall motion analysis. Consider Definity Echo Contrast when indicated. Left ventricle is normal in size. Global left ventricular systolic function appears moderately reduced. Estimated ejection fraction is 35-40% . Moderate left ventricular hypertrophy. Global hypokinesis is noted. Evidence of diastolic dysfunction. RV not well visualized in apical views. TV and TV annulus appear calcified, TV leaflets not well visualized, when indicated consider CESAR. Moderate pericardial effusion. Technically challenging views of RA/RV. There is respiratory variation of TV inflow which maybe seen in early echocardiographic tamponade. The RV in the subcostal views appears to be underfilled, but no obvious RV collapse, RA shows no obvious collapse. Also the IVC size is normal with inspiratory collapse-which goes against echocardiographic tamponade. IVC normal diameter & inspiratory collapse indicating normal RA filling pressure . Assessment / Acute Cardiac Problems: 1. Acute hypoxic respiratory failure secondary to pulmonary edema likely in the setting of heart failure with underlying OHS/IAN status post intubated on mechanical ventilation 2. Heavy MRSA growth in sputum cultures. CESAR negative for any vegetations or thrombus. 3. Streptococcal bacteremia 4. Pericardial effusion status post pericardiocentesis in ED with ~35-40 cc fluid drained. Recent viral infection 5. TTE with ejection fraction of 35% while hypertensive but ejection fraction is normal on CESAR when normotensive. 6. HTN Emergency - resolved 7. Acute kidney injury 8. Recently diagnosed HTN 9. IAN/OHS Plan of Treatment: 1. Reviewed CESAR, negative for any vegetations or thrombus with evidence of small pericardial effusion. Also ejection fraction is normal on CESAR. 2. Febrile overnight with T-max 100.4, receiving ceftaroline per infectious disease 3. Hypertensive emergency resolved and patient has been off nicardipine drip. In fact blood pressures are on the softer side. 4. Diuresis per nephrology, currently receiving Lasix 40 mg twice daily 5. K>4, Mg>2 6. No further work-up from cardiology standpoint 7. Cardiology to sign off, please call with any questions SARMAD WESLEY MD RESIDENT, [facility] Cardiology 09/03/2021,1:51 AM Attending Physician Statement I have discussed the case of Elias Walker including pertinent history and exam findings with the resident. I have seen and examined the patient and the salguero elements of the encounter have been performed by me. I agree with the assessment, plan and orders as documented by the resident With changes made to the note. . [employer] [phone] Images from the original note were not included. [facility] Progress Note Elias Walker Date: 09/02/2021 LOS: 4 Reason for F/U : Febrile illness Impression : 1. Acute hypoxic respiratory failure currently ventilator dependent 2. Methicillin-resistant Staph aureus pneumonia 3. Group C streptococcal sepsis 1 of 2 sets of blood cultures group C streptococcal sepsis which is typically associated with skin infections 4. Hypertensive emergency resolved 5. Pericardial effusion status post pericardiocentesis with 35 to 40 cc of fluid drained 08/29/2021 CESAR done 09/02/2021 without any vegetations 6. Rhinovirus/enteroviral infection 7. Pulmonary edema 8. Fevers - unclear etiology 9. Obesity with obstructive sleep apnea 10. Acute kidney injury Recommendations: The patient continues on antimicrobial therapy. The patient initially was on cefepime and vancomycin and the cefepime was discontinued 09/01/2021 The vancomycin has been switched to ceftaroline 09/02/2021 due to concerns for ZOZIE worsening per the nephrology service. The patient did again have a fever overnight and etiology is not entirely clear. Continue supportive therapy Infection Control Recommendations: Walker precautions Discharge Planning: Estimated Length of IV antimicrobials: To be determined Patient will need Midline Catheter Insertion/ PICC line Insertion: No Patient will need: Home IV , Infusion Center, SNF, LTAC: Undetermined Patient willneed outpatient wound care: No Medical Decision making / Summary of Stay: Elias Walker is a 36 y.o.-year-old male who was initially admitted on 08/29/2021. Elias is currently intubated and the history is obtained from his girlfriend who is sitting at bedside and from reviewing the chart. Elias has no insurance and does not typically follow with physicians and his girlfriend reports that the only medication that he takes is a Zyrtec for some seasonal allergies. She also reports that he does typically get recurrent cellulitis in his left lower extremity, and that he recently had a viral illness about 2 weeks ago which she also contracted and reports having some rhinorrhea and headaches. She also reports that about a week ago he had a soft tissue abscess in his right hand which he was able to express some purulence out of The patient is obese and there is concern for obstructive sleep apnea He was also recently diagnosed with hypertension started on Lopressor. The patient presented to the emergency department complaining of shortness of breath and work-up in the seem to suggest CHF and a CT and ultrasound showed possible RA collapse with pericardial effusion at an outside facility suggested tamponade The patient was transferred here for further evaluation due to the concerns for tamponade and in the ED was intubated for airway protection and noted to be hypertensive started on nitroglycerin drip He has since been seen by cardiology and an echocardiogram showed moderate pericardial effusion and technically challenging evaluation there was no evidence of tamponade noted. 35 to 40 cc of fluid drained at pericardiocentesis in the emergency department. The patient is being treated for pulmonary edema and during the hospital stay he has been noted to have had fevers with a T-max of 101.3 degrees and was started on empiric antimicrobial therapy and I was asked to evaluate and help with antibiotic choice. Current evaluation:09/02/2021 BP 117/72 Pulse 74 Temp (!) 100.6 F (38.1 C) (Esophageal) Resp 20 Ht 5' 4 (1.626 m) Wt 259 lb 14.8 oz (117.9 kg) SpO2 96% BMI 44.62 kg/m Temperature Range: Temp: (!) 100.6 F (38.1 C) Temp Av.6 F (38.1 C) Min: 99 F (37.2 C) Max: 102.2 F (39 C) The patient is seen and evaluated at bedside he remains on the ventilator at 30% FiO2 and 8 of PEEP. He is on propofol and Precedex for the sedation. He just underwent a CESAR today. He did have fever to 102.2 degrees overnight Review of Systems Unable to perform ROS: Intubated Physical Examination : Physical Exam Constitutional: Appearance: He is well-developed. He is obese. Interventions: He is sedated and intubated. HENT: Head: Normocephalic and atraumatic. Cardiovascular: Rate and Rhythm: Normal rate. Heart sounds: Normal heart sounds. No friction rub. No gallop. Pulmonary: Effort: Pulmonary effort is normal. He is intubated. Breath sounds: Normal breath sounds. No wheezing. Abdominal: General: Bowel sounds are normal. Palpations: Abdomen is soft. There is no mass. Tenderness: There is no abdominal tenderness. Musculoskeletal: Cervical back: Neck supple. Lymphadenopathy: Cervical: No cervical adenopathy. Skin: General: Skin is warm and dry. Laboratory data: I have independently reviewed the followinglabs: CBC with Differential: Recent Labs 09/01/21 0512 09/02/21 0841 WBC 9.4 11.0 HGB 10.9* 11.5* HCT 33.8* 38.7* PLT 212 228 LYMPHOPCT 18* 19* MONOPCT 9 12 BMP: Recent Labs 09/01/21 0512 09/02/21 0841 NA 140 139 K 4.2 4.7 CL 111* 110* CO2 19* 20 BUN 22* 31* CREATININE 1.71* 1.86* Hepatic Function Panel: No results for input(s): PROT, LABALBU, BILIDIR, IBILI, BILITOT, ALKPHOS, ALT, AST in the last 72 hours. Lab Results Component Value Date/Time PROCAL 0.17 08/30/2021 10:34 AM PROCAL 0.12 08/29/2021 08:07 AM Lab Results Component Value Date/Time CRP 92.0 08/30/2021 10:34 AM No results found for: SEDRATE No results found for: DDIMER No results found for: FERRITIN No results found for: LDH No results found for: FIBRINOGEN Results in Past 30 Days Result Component Current Result Ref Range Previous Result Ref Range SARS-CoV-2, PCR Not Detected (08/30/2021) Not Detected Not in Time Range Lab Results Component Value Date/Time COVID19 Not Detected 08/30/2021 11:15 AM No results for input(s): VANCOTROUGH in the last 72 hours. Imaging Studies: ONE XRAY VIEW OF THE CHEST 09/02/2021 6:50 am Impression Stable support lines Slight improvement in still moderate diffuse bilateral alveolar infiltrates related to improving edema and or infection with decrease in now small right pleural effusion and moderate left basilar pleuroparenchymal process MRI OF THE ABDOMEN WITHOUT CONTRAST, 09/01/2021 1:48 pm Impression 1. Optimal definitive characterization of renal lesions requires utilization of IV contrast. Bilateral circumscribed renal lesions which would be compatible with simple renal cysts on this unenhanced study Largest in the anteromedial lower pole right kidney 3.5 cm. This is probably what is partially imaged on the recent ultrasound. 2. The appears to be some pelvic ascites as seen on the coronal images. Also of note is some body wall edema, small right pleural effusion and cardiomegaly. Cultures: Culture, Blood 1 [[id number]] (Abnormal) Collected: 08/30/21 1001 Order Status: Completed Specimen: Blood Updated: 08/31/21 7640 Specimen Description .BLOOD Special Requests 20ML R WRIST Culture POSITIVE Blood Culture Abnormal DIRECT GRAM STAIN FROM BOTTLE: GRAM POSITIVE COCCI IN CHAINS Detected: Streptococcus species (not S. agalactiae (Group B), S. pneumoniae, or S. pyogenes (Group A)) Culture Results to Follow Methodology- Polymerase Chain Reaction (PCR) STREPTOCOCCI, BETA HEMOLYTIC GROUP C Abnormal (NOTE) Direct Gram Stain from bottle and Polymerase Chain Reaction (PCR) results called to and read back by: BAUTISTA Greenfield at 0425 on 08/31/21 Culture, Blood 1 [[id number]] Collected: 08/30/21 0953 Order Status: Completed Specimen: Blood Updated: 09/02/21 1023 Specimen Description .BLOOD Special Requests 10ML R ARM Culture NO GROWTH 3 DAYS Culture, Respiratory [[id number]] (Abnormal) Collected: 08/30/21 2341 Order Status: Completed Specimen: Endotracheal Updated: 09/02/21 0828 Specimen Description .ENDOTRACHEAL Direct Exam >10, <25 NEUTROPHILS/LPF < 10 EPITHELIAL CELLS/LPF PREDOMINANT ORGANISM: GRAM POSITIVE COCCI IN CLUSTERS Abnormal MIXED BACTERIAL MORPHOTYPES ALSO PRESENT ON GRAM STAIN. Abnormal Culture METHICILLIN RESISTANT STAPHYLOCOCCUS AUREUS HEAVY GROWTH Abnormal NORMAL RESPIRATORY JAMES LIGHT GROWTH Methicillin-Resistant Staphylococcus aureus (1) Antibiotic Interpretation Microscan Method Status penicillin Resistant >=0.5 BACTERIAL SUSCEPTIBILITY PANEL JULIÁN Final clindamycin Sensitive <=0.25 BACTERIAL SUSCEPTIBILITY PANEL JULIÁN Final erythromycin Sensitive <=0.25 BACTERIAL SUSCEPTIBILITY PANEL JULIÁN Final gentamicin Sensitive <=0.5 BACTERIAL SUSCEPTIBILITY PANEL JULIÁN Final Gentamicin is used only in combination with other active agents that test susceptible. levofloxacin Sensitive <=0.12 BACTERIAL SUSCEPTIBILITY PANEL JULIÁN Final oxacillin Resistant >=4 BACTERIAL SUSCEPTIBILITY PANEL JULIÁN Final tetracycline Sensitive <=1 BACTERIAL SUSCEPTIBILITY PANEL JULIÁN Final trimethoprim-sulfamethoxazole Sensitive <=10 BACTERIAL SUSCEPTIBILITY PANEL JULIÁN Final vancomycin Sensitive 1 BACTERIAL SUSCEPTIBILITY PANEL JULIÁN Final Specimen Collected: 08/30/21 23:41 Last Resulted: 09/02/21 08:28 Culture, Blood 1 [[id number]] Collected: 08/31/21 1515 Order Status: Completed Specimen: Blood Updated: 09/01/21 1554 Specimen Description .BLOOD Culture NO GROWTH 1 DAY Culture, Blood 1 [[id number]] Collected: 08/31/21 1519 Order Status: Completed Specimen: Blood Updated: 09/01/21 1528 Specimen Description .BLOOD Culture NO GROWTH 1 DAY Culture, Blood 1 [[id number]] (Abnormal) Collected: 08/30/21 1001 Order Status: Completed Specimen: Blood Updated: 08/31/21 2337 Specimen Description .BLOOD Special Requests 20ML R WRIST Culture POSITIVE Blood Culture Abnormal DIRECT GRAM STAIN FROM BOTTLE: GRAM POSITIVE COCCI IN CHAINS Detected: Streptococcus species (not S. agalactiae (Group B), S. pneumoniae, or S. pyogenes (Group A)) Culture Results to Follow Methodology- Polymerase Chain Reaction (PCR) STREPTOCOCCI, BETA HEMOLYTIC GROUP C Abnormal (NOTE) Direct Gram Stain from bottle and Polymerase Chain Reaction (PCR) results called to and read back by: BAUTISTA Greenfield at 0425 on 08/31/21 MRSA DNA Probe, Nasal [[id number]] (Abnormal) Collected: 08/29/21 0813 Order Status: Completed Specimen: Nasal Updated: 08/30/21 1509 Specimen Description .NASAL SWAB MRSA, DNA, Nasal POSITIVE: MRSA DNA detected by nucleic acid amplification. Abnormal Comment: Results should be used as an adjunct to nosocomial control efforts to identify patients needing enhanced precautions. The test is not intended to identify patients with staphylococcal infections. Results should not be used to guide or monitor treatment for MRSA infections. Respiratory Panel, Molecular, with COVID-19 (Restricted: peds pts or suitable admitted adults) [[id number]] (Abnormal) Collected: 08/30/21 1115 Order Status: Completed Specimen: Nasopharyngeal Swab Updated: 08/30/21 1203 Specimen Description .NASOPHARYNGEAL SWAB Adenovirus PCR Not Detected Coronavirus 229E PCR Not Detected Coronavirus HKU1 PCR Not Detected Coronavirus NL63 PCR Not Detected Coronavirus OC43 PCR Not Detected SARS-CoV-2, PCR Not Detected Human Metapneumovirus PCR Not Detected Rhino/Enterovirus PCR DETECTED Abnormal Influenza A by PCR Not Detected Influenza B by PCR Not Detected Parainfluenza 1 PCR Not Detected Parainfluenza 2 PCR Not Detected Parainfluenza 3 PCR Not Detected Parainfluenza 4 PCR Not Detected Resp Syncytial Virus PCR Not Detected Bordetella Parapertussis Not Detected B Pertussis by PCR Not Detected Chlamydia pneumoniae By PCR Not Detected Mycoplasma pneumo by PCR Not Detected Comment: Performed by multiplexed nucleic acid assay. Respiratory Panel, Molecular, with COVID-19 (Restricted: peds pts or suitable admitted adults) [[id number]] Collected: 08/30/21 0930 Order Status: Canceled Specimen: Nasopharyngeal Swab Medications: heparin (porcine) 5,000 Units SubCUTAneous 3 times per day furosemide 40 mg IntraVENous BID ceftaroline fosamil (TEFLARO) IVPB 400 mg IntraVENous Q12H famotidine 20 mg Per G Tube BID [Held by provider] carvedilol 6.25 mg Oral BID sodium chloride flush 5-40 mL IntraVENous 2 times per day [facility] Ashish Henao MD [employer] messaging OFFICE: Thank you for allowing us to participate in the care of this patient. Please call with questions. This note iscreated with the assistance of a speech recognition program. While intending to generate a document that actually reflects the content of the visit, the document can still have some errors including those of syntax andsound a like substitutions which may escape proof reading. In such instances, actual meaning can be extrapolated by contextual diversion. Images from the original note were not included. [employer] Progress Note Date: 09/02/2021 Patient name: Elias Walker Date of admission: 08/29/2021 1:02 AM Date of : 1985 PCP: No primary care provider on file. Reason for Admission: Acute pulmonary edema (HCC) [J81.0] Cardiac tamponade [I31.4] Acute respiratory failure, unspecified whether with hypoxia or hypercapnia (HCC) [J96.00] Pericardial effusion with cardiac tamponade [I31.3, I31.4] Acute heart failure, unspecified heart failure type (HCC) [I50.9] Acute respiratory failure with hypoxia (HCC) [J96.01] Subjective: Clinical Changes / Abnormalities: Patient seen and examined at bedside. No acute events overnight. Intubated and sedated. Plan on CESAR, keep NPO. Urine output in the last 24 hours: Intake/Output Summary (Last 24 hours) at 09/02/2021 1204 Last data filed at 09/02/2021 0938 Gross per 24 hour Intake 2924.58 ml Output 720 ml Net 2204.58 ml Medications: Scheduled Meds: heparin (porcine) 5,000 Units SubCUTAneous 3 times per day furosemide 40 mg IntraVENous BID ceftaroline fosamil (TEFLARO) IVPB 400 mg IntraVENous Q12H famotidine 20 mg Per G Tube BID [Held by provider] carvedilol 6.25 mg Oral BID sodium chloride flush 5-40 mL IntraVENous 2 times per day Continuous Infusions: fentaNYL 50 mcg/mL 200 mcg/hr (09/02/21937) sodium chloride Stopped (09/02/21903) propofol 30 mcg/kg/min (09/02/21937) sodium chloride 50 mL/hr at 08/31/21 0804 CBC: Recent Labs 08/31/217 09/01/21 0512 09/02/21 0841 WBC 11.9* 9.4 11.0 HGB 11.0* 10.9* 11.5* PLT 195 212 228 BMP: Recent Labs 08/31/2145609/01/2151109/02/21840 NA 140 140 139 K 3.9 4.2 4.7 CL 110* 111* 110* CO2 20 19* 20 BUN 21* 22* 31* CREATININE 1.77* 1.71* 1.86* GLUCOSE 91 102* 84 Objective: Vitals: BP 117/72 Pulse 79 Temp (!) 100.6 F (38.1 C) (Esophageal) Resp 20 Ht 5' 4 (1.626 m) Wt 259 lb 14.8 oz (117.9 kg) SpO2 96% BMI 44.62 kg/m Constitutional and General Appearance: Intubated and sedated Respiratory: No for increased work of breathing. On auscultation: diminished breath sounds bilaterally ETT in place Cardiovascular: Regular S1 and S2. No murmurs Abdomen: No masses or tenderness Bowel sounds present Extremities: No Cyanosis or Clubbing Lower extremity edema: No Neurological: Intubated and sedated DATA: Diagnostics: ECHO: Repeat Limited ECHO 08/29/21 Summary Limited Echo Global left ventricular systolic function appears moderately reduced. Estimated ejection fraction is 30-35 % . Moderate pericardial effusion is seen, there appears to be no significant change compared to previous echo. Mitral and tricuspid inflows show no evidence of tamponade physiology. No obvious RA or RV collapse noted. RV appears to have improved filling compared to prior echo (showed underfilling). IVC is normal size. Summary Technically challenging echo, there is poor windows, poor visualization of LV gavin, cannot comment on specific wall motion analysis. Consider Definity Echo Contrast when indicated. Left ventricle is normal in size. Global left ventricular systolic function appears moderately reduced. Estimated ejection fraction is 35-40% . Moderate left ventricular hypertrophy. Global hypokinesis is noted. Evidence of diastolic dysfunction. RV not well visualized in apical views. TV and TV annulus appear calcified, TV leaflets not well visualized, when indicated consider CESAR. Moderate pericardial effusion. Technically challenging views of RA/RV. There is respiratory variation of TV inflow which maybe seen in early echocardiographic tamponade. The RV in the subcostal views appears to be underfilled, but no obvious RV collapse, RA shows no obvious collapse. Also the IVC size is normal with inspiratory collapse-which goes against echocardiographic tamponade. [employer] Work Phone: Evaluation note No assessment inform ation available [facility] Work Phone: Evaluation note Diagnosis Cerebral septic emboli (HCC)- Primary Cerebral embolism without mention of cerebral infarction Acute heart failure, unspecified heart failure type (HCC) Acute pulmonary edema (HCC) Acute edema of lung, unspecified Pericardial effusion with cardiac tamponade Acute respiratory failure, unspecified whether with hypoxia or hypercapnia (HCC) Acute kidney injury (HCC) Acute kidney failure, unspecified Hypercalcemia Hyperparathyroidism (HCC) Hyperparathyroidism, unspecified Vitamin D deficiency Unspecified vitamin D deficiency Cardiac tamponade Pericardial effusion Unspecified disease of pericardium Pleural effusion Unspecified pleural effusion Rhinovirus infection Rhinovirus infection in conditions classified elsewhere and of unspecified site Fever Fever, unspecified Sepsis due to Streptococcus species without acute organ dysfunction (HCC) Staphylococcus aureus pneumonia (HCC) Methicillin susceptible pneumonia due to Staphylococcus aureus Delirium Other alteration of consciousness Cerebral embolism Cerebral embolism without mention of cerebral infarction Cerebrovascular accident (CVA) (HCC) documented in this encounter [employer] Phone: evaluation note* Diagnosis Sepsis due to Streptococcus species without acute organ dysfunction (HCC)- Primary documented in this encounter [employer] Phone: evaluation note* Diagnosis Sepsis due to Streptococcus species without acute organ dysfunction (HCC)- Primary documented in this encounter [employer] Phone: evaluation note* Diagnosis Sepsis due to Streptococcus species without acute organ dysfunction (HCC)- Primary documented in this encounter [employer] Phone: evaluation note* Diagnosis Sepsis due to Streptococcus species without acute organ dysfunction (HCC)- Primary documented in this encounter [employer] Phone: evaluation note* Diagnosis Acute kidney injury (HCC) Acute kidney failure, unspecified documented in this encounter [employer] Phone: evaluation note* Diagnosis Sepsis due to Streptococcus species without acute organ dysfunction (HCC)- Primary documented in this encounter [employer] Phone: evaluation note* Diagnosis Sepsis due to Streptococcus species without acute organ dysfunction (HCC)- Primary documented in this encounter [employer] Phone: evaluation note* Diagnosis Sepsis due to Streptococcus species without acute organ dysfunction (HCC)- Primary documented in this encounter [employer] Phone: evaluation note* Diagnosis Sepsis due to Streptococcus species without acute organ dysfunction (HCC)- Primary documented in this encounter [employer] Phone: evaluation note* Diagnosis Sepsis due to Streptococcus species without acute organ dysfunction (HCC)- Primary documented in this encounter [employer] Phone: evaluation note* Diagnosis Sepsis due to Streptococcus species without acute organ dysfunction (HCC)- Primary documented in this encounter [employer] Phone: evaluation note* Diagnosis Sepsis due to Streptococcus species without acute organ dysfunction (HCC)- Primary documented in this encounter [employer] Phone: evaluation note* Diagnosis Acute kidney injury (HCC) Acute kidney failure, unspecified Hypercalcemia Dilated cardiomyopathy (HCC) Other primary cardiomyopathies Primary hypertension Unspecified essential hypertension documented in this encounter [employer] Phone: evaluation note* Diagnosis Sepsis due to Streptococcus species without acute organ dysfunction (HCC)- Primary documented in this encounter [employer] Phone: evaluation note* Diagnosis Hypercalcemia documented in this encounter [employer] Phone: evaleneyfx note* Diagnosis Multiple vessel coronary artery disease- Primary Coronary atherosclerosis of unspecified type of vessel, [place] or graft S/P CABG (coronary artery bypass graft) Postsurgical aortocoronary bypass status NSTEMI (non-ST elevated myocardial infarction) ([facility]) Acute myocardial infarction, subendocardial infarction, episode of care unspecified Hypertensive crisis Unspecified essential hypertension Acute kidney injury superimposed on CKD ([facility]) Morbid obesity (HCC) Morbid obesity Anxiety Anxiety state, unspecified Essential hypertension Unspecified essential hypertension Allergic rhinitis Allergic rhinitis, cause unspecified HHNC (hyperglycemic hyperosmolar nonketotic coma) ([facility]) Type II or unspecified type diabetes mellitus with hyperosmolarity, not stated as uncontrolled History of primary hyperparathyroidism IAN (obstructive sleep apnea) Obstructive sleep apnea (adult) (pediatric) History of type 2 diabetes mellitus Personal history of other endocrine, metabolic, and immunity disorders documented in this encounter [facility]: evaluation note* Diagnosis Acute kidney injury (HCC) Acute kidney failure, unspecified Hypercalcemia Dilated cardiomyopathy (HCC) Other primary cardiomyopathies Primary hypertension Unspecified essential hypertension documented in this encounter [facility]: evaluation note* Diagnosis Acute kidney injury superimposed on CKD ([facility]) Avitaminosis D Unspecified vitamin D deficiency Anemia of chronic renal failure, unspecified CKD stage Hypercalcemia Hyperparathyroidism (HCC) Hyperparathyroidism, unspecified Stage 3 chronic kidney disease, unspecified whether stage 3a or 3b CKD (HCC) Acute kidney injury (HCC) Acute kidney failure, unspecified Dilated cardiomyopathy (HCC) Other primary cardiomyopathies Primary hypertension Unspecified essential hypertension documented in this encounter [facility]: evaluation note* Diagnosis Mixed hyperlipidemia [facility]* Diagnosis Type 2 diabetes mellitus with microalbuminuria, without long-term current use of insulin ([facility]) documented in this encounter [facility]* Diagnosis Uncontrolled type 2 diabetes mellitus with hyperglycemia ([facility] Primary Type 2 diabetes mellitus with microalbuminuria, without long-term current use of insulin ([facility]) Type 2 diabetes mellitus with stage 3 chronic kidney disease and hypertension ([facility]) documented in this encounter [facility] Diagnosis Uncontrolled type 2 diabetes mellitus with hyperglycemia ([facility]) Type 2 diabetes mellitus with stage 3 chronic kidney disease and hypertension ([facility]) Type 2 diabetes mellitus with microalbuminuria, without long-term current use of insulin ([facility]) documented in this encounter [facility]* Diagnosis Type 2 diabetes mellitus with microalbuminuria, without long-term current use of insulin ([facility])- Primary documented in this encounter [facility]* Diagnosis Seasonal allergic rhinitis due to pollen documented in this encounter [facility]* Diagnosis Type 2 diabetes mellitus with microalbuminuria, without long-term current use of insulin ([facility] Primary Mixed anxiety and depressive disorder Dysthymic disorder Mixed hyperlipidemia Stage 3b chronic kidney disease ([facility]) documented in this encounter [facility]* Diagnosis Type 2 diabetes mellitus with microalbuminuria, without long-term current use of insulin ([facility])- Primary Primary hypertension Unspecified essential hypertension Current moderate episode of major depressive disorder without prior episode ([facility]) Mixed hyperlipidemia documented in this encounter [facility]* Diagnosis Type 2 diabetes mellitus with microalbuminuria, without long-term current use of insulin ([facility])- Primary documented in this encounter [facility]* Diagnosis Lesion of tongue- Primary documented in this encounter [facility]* Diagnosis Lesion of tongue- Primary documented in this encounter [facility]* Diagnosis Type 2 diabetes mellitus with microalbuminuria, without long-term current use of insulin ([facility] Primary Type 2 diabetes mellitus with stage 3 chronic kidney disease and hypertension ([facility]) Anxiety and depression Snoring Other dyspnea and respiratory abnormality Mixed hyperlipidemia documented in this encounter [facility]* Diagnosis Type 2 diabetes mellitus with microalbuminuria, without long-term current use of insulin ([facility])- Primary Fasting hyperglycemia documented in this encounter [facility]* Diagnosis Uncontrolled type 2 diabetes mellitus with hyperglycemia ([facility] Primary Moderate episode of recurrent major depressive disorder ([facility]) documented in this encounter [facility]* Diagnosis Folliculitis- Primary Other specified disease of hair and hair follicles documented in this encounter [facility]* Diagnosis Type 2 diabetes mellitus with microalbuminuria, without long-term current use of insulin ([facility]) documented in this encounter [facility]* Diagnosis Type 2 diabetes mellitus with microalbuminuria, without long-term current use of insulin ([facility])- Primary documented in this encounter [facility]* Diagnosis Moderate episode of recurrent major depressive disorder ([facility]) Type 2 diabetes mellitus with stage 3 chronic kidney disease and hypertension ([facility]) documented in this encounter [facility]* Diagnosis Type 2 diabetes mellitus with microalbuminuria, without long-term current use of insulin ([facility])- Primary Moderate episode of recurrent major depressive disorder ([facility]) Mixed hyperlipidemia Seasonal allergic rhinitis due to pollen Type 2 diabetes mellitus with stage 3 chronic kidney disease and hypertension ([facility]) Anxiety and depression Comprehensive diabetic foot examination, type 2 DM, encounter for ([facility]) documented in this encounter [facility]* Diagnosis Type 2 diabetes mellitus with microalbuminuria, without long-term current use of insulin ([facility]) documented in this encounter [facility]* Diagnosis Type 2 diabetes mellitus with microalbuminuria, without long-term current use of insulin ([facility])- Primary documented in this encounter [facility]* Diagnosis Type 2 diabetes mellitus with microalbuminuria, without long-term current use of insulin ([facility])- Primary documented in this encounter [facility]* Diagnosis Type 2 diabetes mellitus with other diabetic kidney complication ([facility]) Essential hypertension, malignant Stage 3 chronic kidney disease, unspecified whether stage 3a or 3b CKD ([facility]) Morbid obesity ([facility]) Morbid obesity documented in this encounter [facility]* Diagnosis Moderate episode of recurrent major depressive disorder ([facility]) documented in this encounter [facility]* Diagnosis Uncontrolled type 2 diabetes mellitus with hyperglycemia ([facility])- Primary Type 2 diabetes mellitus with microalbuminuria, without long-term current use of insulin ([facility]) Anxiety and depression Type 2 diabetes mellitus with stage 3 chronic kidney disease and hypertension ([facility]) documented in this encounter [facility]* Diagnosis Seasonal allergic rhinitis due to pollen [facility] Diagnosis Type 2 diabetes mellitus with microalbuminuria, without long-term current use of insulin ([facility])- Primary documented in this encounter [facility]* Diagnosis Loose stools- Primary Abnormal feces documented in this encounter [facility]* Diagnosis Loose stools- Primary Abnormal feces documented in this encounter [facility]* Diagnosis Mixed hyperlipidemia documented in this encounter [facility] SystemInstructionsNot on filedocumented in this encounter [facility] SystemInstructions* Attachments The following attachments cannot be sent through Care Everywhere. * Diabetes and diet (Emirati) [facility]* Attachments The following attachments cannot be sent through Care Everywhere. * Diabetes and diet (Emirati) documented [facility] encounter[facility] SystemInstructionsNot on file documented in this encounterProMar[facility] SystemInstructionsNot on file documented in this encounterMer[facility] SystemInstructionsNot on file documented in [facility] encounter[facility] SystemInstructions* Attachments The following attachments cannot be sent through Care Everywhere. * Diabetes Exchange Diet (Emirati) documented in this encounterPro[facility] SystemInstructionsNot on file documented in this encounterPro[facility] SystemInstructionsNot on file documented in this encounterGrand [facility] [employer] SystemInstructionsNot on file documented in [facility] encounterMer[facility] SystemInstructions* Attachments The following attachments cannot be sent through Care Everywhere. * Anxiety Discharge Instructions, Adult (Emirati) documented in this encounterProMar[facility] SystemInstructionsNot on file documented in this encounterGrand [facility] [employer] SystemInstructionsNot on file documented in this encounterMer[facility] SystemInstructions* Attachments The following attachments cannot be sent through Care Everywhere. * Carb counting for adults with diabetes (Emirati) documented in [facility] SystemInstructions* Attachments The following attachments cannot be sent through Care Everywhere. * Folliculitis (Emirati) documented in this encounterProMarion Hospital SystemInstructionsNot on file documented in this encounterMer[facility] SystemInstructionsNot on file documented in this encounterMer[facility] SystemInstructions* Attachments The following attachments cannot be sent through Care Everywhere. * Depression (Emirati) documented in this encounterMer[facility] SystemInstructionsNot on file documented in this encounterOhioHealth Berger HospitalInstructions* Attachments The following attachments cannot be sent through Care Everywhere. * Carb counting for adults with diabetes (Emirati) documented in this encounterOhioHealth Berger HospitalInstructionsNot on file documented in this encounterOhioHealth Berger HospitalReason for referral (narrative)* Consultation (Routine) - Pending Review Specialty Diagnoses / Procedures Referred By Contjenny t Referred To Contact Otolaryngology Diagnoses Lesion of tongue Eliana Merino APRN-FNP [address] [place] [address] Kate Matt MD [address] [address] Referral ID Status Reason Start Date Expiration Date Visits Requested Visits Authorized [id number] Pending Review Specialty Services Required 03/29/2023 03/28/2024 1 1 [facility]Reason for referral (narrative)* Consultation (Routine) - Pending Review Specialty Diagnoses / Procedures Referred By Contac t Referred To Contact Sleep Medicine Diagnoses Snoring Jose Khanna APRN-CNP [address] [place] [address] Pari Painter MD [address] [place] [address] Referral ID Status Reason Start Date Expiration Date Visits Requested Visits Authorized [id number] Pending Review Specialty Services Required 04/19/2023 04/18/2024 1 1 [facility] Narrative* Treatment Plan and Therapy Plan (Routine) - Authorized Specialty Diagnoses / Procedures Referred By Contac t Referred To Contact Diagnoses Sepsis due to Streptococcus species without acute organ dysfunction (HCC) Procedures MS CEFTRIAXONE SODIUM INJECTION Jared Hernandez MD [address] [facility] [address] [place] [address] Stv 3c Med Surg [address] [place] [address] Referral ID Status Reason Start Date Expiration Date V isits Requested Visits Authorized [id number] Authorized 09/12/2021 09/12/2022 99 99 [facility]: reason for visit Narrative* Treatment Plan and Therapy Plan (Routine) - Open Specialty Diagnoses / Procedures Referred By Contac t Referred To Contact Diagnoses Sepsis due to Streptococcus species without acute organ dysfunction (HCC) Jared Hernandez MD [address] [facility] [address] [place] [address] [facility] [address] [place] [address] Referral ID Status Reason Start Date Expiration Date Visits Re quested Visits Authorized [id number] Open 09/14/2021 09/14/2022 1 1 [facility] Phone: Chief Complaint and Reason for Visit Chief Complaint CP, SOB Advance Directives No Advanced Directives Records Found Advance Directive Response Recorded Date/ Time Advance Directives No August 28 7:04pm Documents on File Type Date Recorded Patient Sap Bobj Developer Expl anation ACP-Advance Directive ACP-Power of Engineering Illustrator Latest Code Status on File Code Status Date Activated Date Inactivated Comments Full Code 08/29/2021 6:40 AM Full Code 08/29/2021 6:40 AM 08/29/2021 6:40 AM Full Code 01/31/2016 5:14 AM 02/02/2016 10:23 AM Latest Code Status on File Code Status Date Activated Date Inactivated Comments Full Code 08/29/2021 6:40 AM 09/12/2021 5:11 PM Latest Code Status on File Code Status Date Activated Date Inactivated Comments Full Code 08/29/2021 6:40 AM 09/12/2021 5:11 PM Full Code 08/29/2021 6:40 AM 08/29/2021 6:40 AM Full Code 01/31/2016 5:14 AM 02/02/2016 10:23 AM Latest Code Status on File Code Status Date Activated Date Inactivated Comments Full Code 06/02/2022 6:25 PM Code Status History Code Status Date Activated Date Inactivated Comments Full Code 05/23/2022 12:21 PM 06/02/2022 6:24 PM Full Code 08/29/2021 6:40 AM 09/12/2021 5:11 PM Full Code 08/29/2021 6:40 AM 08/29/2021 6:40 AM Full Code 01/31/2016 5:14 AM 02/02/2016 10:23 AM Healthcare Agents on File Name Relationship Healthcare Agent Relationshi p Communication Nicolle Good Girlfriend Primary Decision Maker [phone] (Home) Documents on File Type Date Recorded Patient Sap Bobj Developer Expl anation ACP-Advance Directive 06/07/2022 12:16 PM Latest Code Status on File Code Status Date Activated Date Inactivated Comments Full Code 06/02/2022 6:25 PM 06/06/2022 4:42 PM Healthcare Agents on File Name Relationship Healthcare Agent Relationshi p Communication Nicolle Good Girlfriend Primary Decision Maker [phone] (Home) Healthcare Agents on File Name Relationship Healthcare Agent Relationshi p Communication Nicolle Good Girlfriend Primary Decision Maker [phone] (Home) Healthcare Agents on File Name Relationship Healthcare Agent Relationshi p Communication Nicolle Good Girlfriend Primary Decision Maker [phone] (Home) Healthcare Agents on File Name Relationship Healthcare Agent Relationshi p Communication Nicolle Good Girlfriend Primary Decision Maker [phone] (Home) Healthcare Agents on File Name Relationship Healthcare Agent Relationshi p Communication Nicolle Good Girlfriend Primary Decision Maker [phone] (Home) Latest Code Status on File Code Status Date Activated Date Inactivated Comments Full Code 07/25/2022 9:16 AM 07/26/2022 2:46 AM Code Status History Code Status Date Activated Date Inactivated Comments Full Code 06/02/2022 6:25 PM 06/06/2022 4:42 PM Full Code 05/23/2022 12:21 PM 06/02/2022 6:24 PM Full Code 08/29/2021 6:40 AM 09/12/2021 5:11 PM Full Code 08/29/2021 6:40 AM 08/29/2021 6:40 AM Healthcare Agents on File Name Relationship Healthcare Agent Carter olson Communication Nicolle Peters Girlfriend Primary Decision Maker Reason for Referral Specialty Diagnoses / Procedures Referred By Contac t Referred To Contact Endocrinology Diagnoses Hypercalcemia Hyperparathyroidism (HCC) Vitamin D deficiency Solange Mercer MD [address] [place] [address] Chioma Dawkins MD [address] [place] [address] Referral ID Status Reason Start Date Expiration Date V isits Requested Visits Authorized [id number] Open Specialty Services Required 09/12/2021 03/11/2022 1 1 Specialty Diagnoses / Procedures Referred By Contac t Referred To Contact Diagnoses Type 2 diabetes mellitus with microalbuminuria, without long-term current use of insulin ([facility]) Jose Khanna, DIRECTOR SOCIAL SERVICE-RECREATION SUPERVISOR [address] [place] [address] Referral ID Status Reason Start Date Expiration Date V isits Requested Visits Authorized [id number] Pending Review 1 1 Referral ID Status Reason Start Date Expiration Date V isits Requested Visits Authorized [id number] Pending Review 10/23/2023 10/22/2024 1 1 Specialty Diagnoses / Procedures [facility] Referred To Contact Diagnoses Moderate episode of recurrent major depressive disorder ([facility]) Jose Khanna, DIRECTOR SOCIAL SERVICE-RECREATION SUPERVISOR [address] [place] [address] Referral ID Status Reason Start Date Expiration Date V isits Requested Visits Authorized [id number] Authorized 11/13/2023 11/11/2024 1 1 Referral ID Status Reason Start Date Expiration Date V isits Requested Visits Authorized [id number] Pending Review 11/27/2023 11/26/2024 1 1 Referral ID Status Reason Start Date Expiration Date Visits Re quested Visits Authorized [id number] Closed 1 1 Summary Purpose Family History No Family History Records FoundNo Family History Records FoundNo Family History Records FoundNo Family History Records FoundNo Family History Records FoundNo Family History Records FoundNo Family History Records FoundNo Family History Records FoundNo Family History Records Found Additional Source Comments Care Teams (unrecognized sec tion and content) Team Status: Inactive Member Role Status Dates PHYSICIAN NO FAMILY Primary Care Provider Active Basilio Sam PA-C Emergency Provider Active Team Status: Active Member Role Status Dates PHYSICIAN NO FAMILY Primary Care Provider Active Labor Supervisor Relationship Specialty Start Date End Date Jose Khanna, DIRECTOR SOCIAL SERVICE - RECREATION SUPERVISOR [address], [place] [address] PCP - General 12/09/21 Labor Supervisor Relationship Specialty Start Date End Date Jose Khanna DIRECTOR SOCIAL SERVICE - RECREATION SUPERVISOR [address], [place] [address] PCP - General 12/09/21 Labor Supervisor Relationship Specialty Start Date End Date Jose Khanna DIRECTOR SOCIAL SERVICE - RECREATION SUPERVISOR [address], [place] [address] PCP - General 12/09/21 Labor Supervisor Relationship Specialty Start Date End Date Jose Khanna DIRECTOR SOCIAL SERVICE - RECREATION SUPERVISOR [address], [place] [address] PCP - General 12/09/21 Labor Supervisor Relationship Specialty Start Date End Date Jose Khanna DIRECTOR SOCIAL SERVICE - RECREATION SUPERVISOR [address], [place] [address] PCP - General 12/09/21 Labor Supervisor Relationship Specialty Start Date End Date Jose Khanna DIRECTOR SOCIAL SERVICE - RECREATION SUPERVISOR [address], [place] [address] PCP - General 12/09/21 Labor Supervisor Relationship Specialty Start Date End Date Jose Khanna [facility] [address] [place] [address] PCP - General 12/09/21 Labor Supervisor Relationship Specialty Start Date End Date Jose Khanna [facility] [address] [place] [address] PCP - General Family Medicine 10/21/21 Labor Supervisor Relationship Specialty Start Date End Date Jose Khanna [facility] [address] [place] [address] PCP - General Family Medicine 10/21/21 Labor Supervisor Relationship Specialty Start Date End Date Jose Khanna [facility] [address] [place] [address] PCP - General Family Medicine 10/21/21 Labor Supervisor Relationship Specialty Start Date End Date Jose Khanna [facility] [address] [place] [address] PCP - General Family Medicine 10/21/21 Labor Supervisor Relationship Specialty Start Date End Date Jose Khanna [facility] [address] [place] [address] PCP - General Family Medicine 10/21/21 Labor Supervisor Relationship Specialty Start Date End Date Jose Khanna [facility] [address] [place] [address] PCP - General Family Medicine 10/21/21 Labor Supervisor Relationship Specialty Start Date End Date Jose Khanna [facility] [address] [place] [address] PCP - General Family Medicine 10/21/21 Labor Supervisor Relationship Specialty Start Date End Date Jose Khanna [facility] [address] [place] [address] PCP - General Family Medicine 10/21/21 Labor Supervisor Relationship Specialty Start Date End Date Jose Khanna [facility] [address] [place] [address] PCP - General Family Medicine 10/21/21 Labor Supervisor Relationship Specialty Start Date End Date Jose Khanna [facility] [address] [place] [address] PCP - General Family Medicine 10/21/21 Labor Supervisor Relationship Specialty Start Date End Date Jose Khanna [facility] [address] [place] [address] PCP - General Family Medicine 10/21/21 Labor Supervisor Relationship Specialty Start Date End Date Jose Khanna [facility] [address] [place] [address] PCP - General Family Medicine 10/21/21 Labor Supervisor Relationship Specialty Start Date End Date [facility] [address] [place] [address] PCP - General Family Medicine 10/21/21 Labor Supervisor Relationship Specialty Start Date End Date [facility] [address] [place] [address] PCP - General Family Medicine 10/21/21 Labor Supervisor Relationship Specialty Start Date End Date Jose [facility] [address] [place] [address] PCP - General Family Medicine 10/21/21 Labor Supervisor Relationship Specialty Start Date End Date Jose Khanna DIRECTOR [facility]IAL [facility]ICEBA[facility] [address] [place] [address] PCP - General Family Medicine 10/21/21 Labor Supervisor Relationship Specialty Start Date End Date [facility] [address] [place] [address] PCP - General Family Medicine 10/21/21 Labor Supervisor Relationship Specialty Start Date End Date [facility] [address] [place] [address] PCP - General Family Medicine 10/21/21 Labor Supervisor Relationship Specialty Start Date End Date Jose Khanna [facility] [address] [place] [address] PCP - General Family Medicine 10/21/21 Labor Supervisor Relationship Specialty Start Date End Date Jose Khanna [facility] [address] [place] [address] PCP - General Family Medicine 10/21/21 Labor Supervisor Relationship Specialty Start Date End Date Jose Khanna [facility] [address] [place] [address] PCP - General Family Medicine 10/21/21 Labor Supervisor Relationship Specialty Start Date End Date Jose Khanna [facility] [address] [place] [address] PCP - General Family Medicine 10/21/21 Goals (unrecognized section and content) Goals may be documented in a n alternate sectionNot on filedocumented as of this encounterNot on filedocumented as of this encounterNot on filedocumented as of this encounterNot on filedocumented as of this encounterNot on filedocumented as of this encounterNot on filedocumented as of this encounterNot on filedocumented as of this encounterNot on filedocumented as of this encounterNot on filedocumented as of this encounterNot on filedocumented as of this encounterNot on filedocumented as of this encounterNot on filedocumented as of this encounterNot on filedocumented as of this encounterNot on filedocumented as of this encounterNot on filedocumented as of this encounterNot on filedocumented as of this encounterNot on filedocumented as of this encounterNot on filedocumented as of this encounterNot on filedocumented as of this encounterNot on filedocumented as of this encounterNot on filedocumented as of this encounterNot on filedocumented as of this encounterNot on filedocumented as of this encounterNot on filedocumented as of this encounterNot on filedocumented as of this encounterNot on filedocumented as of this encounterNot on filedocumented as of this encounterNot on filedocumented as of this encounterNot on filedocumented as of this encounterNot on filedocumented as of this encounterNot on filedocumented as of this encounterNot on filedocumented as of this encounterNot on filedocumented as of this encounterNot on filedocumented as of this encounterNot on filedocumented as of this encounterNot on filedocumented as of this encounterNot on filedocumented as of this encounterNot on filedocumented as of this encounterNot on filedocumented as of this encounterNot on filedocumented as of this encounterNot on filedocumented as of this encounterNot on filedocumented as of this encounterNot on filedocumented as of this encounter Reason for Visit (unrecogniz ed section and content) Reason Comments Shortness of Breath [place] tx, cardia c tamponade Chest Pain Reason Comments Chest Pain No longer has chest pain, presented to [facility] with chest pain Polydipsia Specialty Diagnoses / Procedures Referred By Larry marcano Referred To Contact Diagnoses NSTEMI (non-ST elevated myocardial infarction) (HCC) NSTEMI Fly Zapata I, DO [address] [place] [address] [facility] [address] [place] [address] Referral ID Status Reason Start Date Expiration Date Visits Re quested Visits Authorized [id number] 1 1 Reason Onset Date Comments Med Refill 12/29/2023 Reason Comments Follow-up Reason Comments Diabetes Been running high. 1 90 Reason Comments Dexcom Training Reason Comments Med Refill Reason Comments Follow-up Reason Comments Diabetes Hypertension Reason Comments keeps biting tongue more frequent last 3 weeks Reason Comments Diabetes Reason Comments Diabetes Sugar been [id number] Reason Comments discuss Blood sugars Blood sugars have b een fine except the first day was 500. Then today 215 fasting Reason Comments lump under right arm Reason Comments CGM Application Instructed patient a nd his girlfriend, Nicolle on how to apply the Dexcom 7. Nicolle states that she understands and I have instructed them if they need to come back they can for his next application. Reason Onset Date Comments Med Refill 10/20/2023 Reason Comments Application of Dexcom Reason Onset Date Comments Med Refill 11/13/2023 Reason Comments Diabetes 150 accucheck Hypertension Reason Comments Med Change Request Reason Onset Date Comments Med Refill 11/27/2023 Reason Comments Med Change Request Reason Onset Date Comments Blood Sugar Problem 12/31/2023 Reason Onset Date Comments Med Refill 04/21/2024 Reason Comments MNT - Individual Specialty Diagnoses / Procedures Referred By Larry t Referred To Contact Endocrinology, Diabetes & Metabolism Diagnoses Type 2 diabetes mellitus with other diabetic kidney complication ([facility]) Essential hypertension, malignant Stage 3 chronic kidney disease, unspecified whether stage 3a or 3b CKD ([facility]) Morbid obesity ([facility]) Jacob Cochran, DO [address] [place] [address] Phone: tel: fax: [facility] [address] [place] [address] Phone: tel: fax: Referral ID Status Reason Start Date Expiration Date Visits Requested Visits Authorized [id number] Pending Review Specialty Services Required 02/07/2024 02/06/2025 1 1 Reason Comments Diabetes Hypertension Depression Reason Onset Date Comments Appointment Request 10/02/2024 Ordered Prescriptions (unrec ognized section and content) Prescription Sig Dispensed Refills Start Date End Da te Vitamin D, Ergocalciferol, 15000 units CAPS 50,000 Units by Per NG tube route once a week 5 capsule 0 09/12/2021 NIFEdipine (PROCARDIA XL) 30 MG extended release tablet Take 1 tablet by mouth daily 30 tablet 3 09/13/2021 carvedilol (COREG) 12.5 MG tablet Take 1 tablet by mouth 2 times daily 60 tablet 3 09/12/2021 cefTRIAXone (ROCEPHIN) infusion Infuse 2,000 mg intravenously every 24 hours for 16 days Compound per protocol 32 g 0 09/13/2021 09/29/2021 Ergocalciferol (VITAMIN D) 78551 units CAPS 50,000 Units by Per NG tube route once a week 5 capsule 0 09/12/2021 09/12/2021 NIFEdipine (PROCARDIA XL) 30 MG extended release tablet Take 1 tablet by mouth daily 30 tablet 3 09/13/2021 09/12/2021 carvedilol (COREG) 12.5 MG tablet Take 1 tablet by mouth 2 times daily 60 tablet 3 09/12/2021 09/12/2021 Prescription Sig Dispensed Refills Start Date End Da te amiodarone (CORDARONE) 200 MG tablet Take 1 tablet by mouth 2 times daily 60 tablet 0 06/06/2022 07/06/2022 oxyCODONE-acetaminoph en (PERCOCET) 5-325 MG per tabletIndications:S/P CABG (coronary artery bypass graft) Take 1 tablet by mouth every 6 hours as needed for Pain for up to 5 days. Max Daily Amount: 4 tablets 20 tablet 0 06/06/2022 06/11/2022 pantoprazole (PROTONIX) 40 MG tablet Take 1 tablet by mouth daily for 14 days 14 tablet 0 06/07/2022 06/21/2022 clopidogrel (PLAVIX) 75 MG tablet Take 1 tablet by mouth daily 30 tablet 0 06/07/2022 tamsulosin (FLOMAX) 0.4 MG capsule Take 1 capsule by mouth daily 30 capsule 0 06/07/2022 polyethylene glycol (GLYCOLAX) 17 g packet Take 17 g by mouth daily as needed for Constipation 527 g 0 06/06/2022 07/06/2022 metoprolol tartrate (LOPRESSOR) 25 MG tablet Take 1 tablet by mouth 2 times daily 60 tablet 3 06/06/2022 atorvastatin (LIPITOR) 20 MG tablet Take 1 tablet by mouth nightly 30 tablet 3 06/06/2022 aspirin 81 MG EC tablet Take 1 tablet by mouth daily 30 tablet 0 06/07/2022 Scheduled Active and Recently Administ ered Medications (unrecognized section and content) Medication Order 09/10/2021 09/11/2021 09/12/2021 carvedilol (COREG) tablet 12.5 mg 12.5 mg, Oral, 2 TIMES DAILY, First dose (after last modification) on Mon09/09/21 at 2100, Until Discontinued, Administer with food to minimize the risk of orthostatic hypotension 0804 (Given - Provider: Jessica Lay RN)2153 (Given - Provider: Jennifer Biswas RN) 0845 (Given - Provider: Jessica Lay RN)213 (Given - Provider: Ladonna Elise, BAUTISTA) 08 (Given - Provider: Triny Lea RN)2100 (Due) cefTRIAXone (ROCEPHIN) 2,000 mg in sterile water 20 mL IV syringe 2,000 mg, IntraVENous, EVERY 24 HOURS, First dose on Mon09/06/21 at 1315, Until Discontinued, Antimicrobial Indications: Bloodstream Infection, Administer as slow IV Push over 5 mins Reconstitute 2 g vials with 19.2 mL of designated diluent to produce a 100mg/mL solution 1304 (Given - Provider: Jessica Lay RN) 1222 (Given - Provider: Jessica Lay RN) 1320 (Given - Provider: Triny Lea RN) furosemide (LASIX) injection 40 mg 40 mg, IntraVENous, DAILY, First dose (after last modification) on Mon09/07/21 at 0900, Until Discontinued 0900 (Automatically Held - Provider: Ben Cesar PA-C) 0900 (Automatically Held - Provider: Ben Cesar PA-C) 0900 (Not Given - Provider: Triny Lea RN - Reason: Other - Comment: held by provider) heparin (porcine) injection 5,000 Units 5,000 Units, SubCUTAneous, EVERY 8 HOURS SCHEDULED (3 times per day), First dose on Mon09/02/21 at 1400, Until Discontinued 0154 (Given - Provider: BEN LAST)0804 (Given - Provider: Jessica Lay RN)1559 (Given - Provider: Jessica Lay RN) 0006 (Given - Provider: Jennifer Biswas RN)0845 (Given - Provider: Jessica Lay RN)1638 (Given - Provider: Jessica Lay RN) 0146 (Given - Provider: Ladonna Elise RN)0827 (Given - Provider: Triny Lea RN)1700 (Due - Provider: Ariel Sifuentes [facility]) NIFEdipine (PROCARDIA XL) extended release tablet 30 mg 30 mg, Oral, DAILY, First dose on Mon09/08/21 at 1100, Until Discontinued, Do not crush or break. 0804 (Given - Provider: Jessica Lay RN) 0845 (Given - Provider: Jessica Lay RN) 08 (Given - Provider: Triny Lea, RN) QUEtiapine (SEROQUEL) tablet 25 mg (CANCELED) 25 mg, Per NG tube, NIGHTLY, First dose on Mon09/04/21 at 2100, Until Discontinued, Per OG 2151 (Given - Provider: Jennifer Biswas RN - Comment: no ng will speak with md for new order) QUEtiapine (SEROQUEL) tablet 25 mg 25 mg, Oral, NIGHTLY, First dose (after last modification) on Mon09/10/21 at 2230, Until Discontinued, Per OG 0006 (Given - Provider: Jennifer Biswas RN)2136 (Given - Provider: Ladonna Elise, BAUTISTA) 2099 (Due) sodium chloride flush 0.9 % injection 5-40 mL 5-40 mL, IntraVENous, EVERY 12 HOURS SCHEDULED (2 times per day), First dose on Mon08/29/21 at 0900, Until Discontinued, For Line Patency: Peripheral IV = 5 mL; Midline or Central Line = 10 mL/lumen. If following IV push medication, administer flush at same rate as the IV push. Flush volume is determined by type of infusion therapy being given. For non-viscous solutions use: Peripheral IV = 5 mL Midline or Central Line = 10 mL/lumen For viscous solutions (i.e. blood components, parenteral nutrition, contrast media, or after obtaining blood sample) use: Peripheral IV = 10 mL Midline or Central Line = 20 mL/lumen 0804 (Given - Provider: Jessica Lay RN)215 (Given - Provider: Jennifer Biswas RN) 122 (Given - Provider: Jessica Lay RN)2136 (Given - Provider: Ladonna Elise, BAUTISTA) 08 (Given - Provider: Triny Lea, RN)2100 (Due) vitamin D (ERGOCALCIFEROL) capsule 50,000 Units 50,000 Units, Per NG tube, WEEKLY, First dose on Mon09/04/21 at 1100, Until Discontinued 0900 (Automatically Held - Provider: Sadie Quintanilla DO) PRN Medication Order 09/10/2021 09/11/2021 09/12/2021 0.9 % sodium chloride infusion IntraVENous, at 5-250 mL/hr, PRN, if patient receiving piggyback infusions and maintenance fluids are not ordered OR KVO fluids to protect IV site / prevent frequent line interruptions/ long duration, Starting on 08/29/21 at 0640, For piggyback infusion, administer at same rate as piggyback for a total of 25 mL. Enter 25 mL into dose field and piggyback rate into rate field of order. If piggyback is infusing at a rate less than 100 mL/hr, enter 25 mL into dose field and 100 mL/hr into rate field of order. For KVO fluids, enter rate of 20 mL/hr or less into rate field of order. acetaminophen (TYLENOL) suppository 650 mg(Linked Group 1) 650 mg, Rectal, EVERY 6 HOURS PRN, Starting on 08/29/21 at 0640, Until Discontinued, Pain Mild (1-3), Fever, For temp greater than 100.4 F (38 C), Administer if oral route cannot be used. 1222 (See Alternative - Provider: Jessica Lay RN) acetaminophen (TYLENOL) tablet 650 mg(Linked Group 1) 650 mg, Oral, EVERY 6 HOURS PRN, Starting on 08/29/21 at 0640, Until Discontinued, Pain Mild (1-3), Fever, For temp greater than 100.4 F (38 C), Maximum dose of acetaminophen is 4000 mg from all sources in 24 hours. 1222 (Given - Provider: Jessica Lay RN) bisacodyl (DULCOLAX) suppository 10 mg 10 mg, Rectal, DAILY PRN, Starting on 09/05/21 at 1838, Until Discontinued, Constipation labetalol (NORMODYNE;TRANDATE) injection 10 mg 10 mg, IntraVENous, EVERY 6 HOURS PRN, Starting on Mon09/07/21 at 0915, Until Discontinued, High Blood Pressure, SBP > 150, Do not administer if HR less than 60 ondansetron (ZOFRAN) injection 4 mg(Linked Group 2) 4 mg, IntraVENous, EVERY 6 HOURS PRN, Starting on Mon08/29/21 at 0640, Until Discontinued, Nausea, Vomiting, Administer if oral route cannot be used. ondansetron (ZOFRAN-ODT) disintegrating tablet 4 mg(Linked Group 2) 4 mg, Oral, EVERY 8 HOURS PRN, Starting on 08/29/21 at 0640, Until Discontinued, Nausea, Vomiting polyethylene glycol (GLYCOLAX) packet 17 g 17 g, Oral, DAILY PRN, Starting on 08/29/21 at 0640, Until Discontinued, Constipation, First line therapy for constipation sodium chloride flush 0.9 % injection 5-40 mL 5-40 mL, IntraVENous, PRN, Starting on 08/29/21 at 0640, Until Discontinued, Line Care, After every IV line use, For Line Patency: Peripheral IV = 5 mL; Midline or Central Line = 10 mL/lumen. If following IV push medication, administer flush at same rate as the IV push. Flush volume is determined by type of infusion therapy being given. For non-viscous solutions use: Peripheral IV = 5 mL Midline or Central Line = 10 mL/lumen For viscous solutions (i.e. blood components, parenteral nutrition, contrast media, or after obtaining blood sample) use: Peripheral IV = 10 mL Midline or Central Line = 20 mL/lumen Linked Groups Order Group 1: acetaminophen (TYLENOL) tablet 650 mgJump to med 650 mg, Oral, EVERY 6 HOURS PRN, Starting on 08/29/21 at 0640, Until Discontinued, Pain Mild (1-3), Fever, For temp greater than 100.4 F (38 C)
Maximum dose of acetaminophen is 4000 mg from all sources in 24 hours.
Or acetaminophen (TYLENOL) suppository 650 mgJump to med 650 mg, Rectal, EVERY 6 HOURS PRN, Starting on 08/29/21 at 0640, Until Discontinued, Pain Mild (1-3), Fever, For temp greater than 100.4 F (38 C)
Administer if oral route cannot be used.
Group 2: ondansetron (ZOFRAN-ODT) disintegrating tablet 4 mgJump to med 4 mg, Oral, EVERY 8 HOURS PRN, Starting on 08/29/21 at 0640, Until Discontinued, Nausea, Vomiting Or ondansetron (ZOFRAN) injection 4 mgJump to med 4 mg, IntraVENous, EVERY 6 HOURS PRN, Starting on Mon08/29/21 at 0640, Until Discontinued, Nausea, Vomiting
Administer if oral route cannot be used.
Scheduled Medication Order 09/11/2021 09/12/2021 09/13/2021 cefTRIAXone (ROCEPHIN) 2,000 mg in sterile water 20 mL IV syringe (COMPLETED) 2,000 mg, IntraVENous, ONCE, 1 dose, On Mon09/13/21 at 1645, Antimicrobial Indications: Sepsis of Unknown Etiology, Sepsis duration of therapy: Other, Other Sepsis Duration: 16 days, Administer as slow IV Push over 5 mins Reconstitute 2 g vials with 19.2 mL of designated diluent to produce a 100mg/mL solution 1707 (Given - Provid er: MARCOS QUICK) PRN Medication Order 09/11/2021 09/12/2021 09/13/2021 0.9 % sodium chloride infusion 5-250 mL/hr, IntraVENous, PRN, If patient receiving piggyback infusions and maintenance fluids are not ordered OR KVO fluids to protect IV site/ prevent frequent line interruptions/ long duration, Starting on Mon09/13/21 at 1621, For 18 hours, For piggyback infusion, administer at same rate as piggyback for a total of 25 mL. Enter 25 mL into dose field and piggyback rate into rate field of order. If piggyback is infusing at a rate less than 100 mL/hr, enter 25 mL into dose field and 100 mL/hr into rate field of order. For KVO fluids, enter rate of 20 mL/hr or less into rate field of order. heparin flush 100 UNIT/ML injection 500 Units 500 Units, IntraCATHeter, PRN, Starting on Mon09/13/21 at 1621, Until Mon09/14/21 at 1020, Line Care sodium chloride flush 0.9 % injection 5-40 mL 5-40 mL, IntraVENous, PRN, Starting on Mon09/13/21 at 1621, Until Mon09/14/21 at 1020, Line Care, If following IV push medication, administer flush at same rate as the IV push. Flush volume is determined by type of infusion therapy being given. For non-viscous solutions use: Peripheral IV = 5 mL Midline or Central Line = 10 mL/lumen For viscous solutions (i.e. blood components, parenteral nutrition, contrast media, or after obtaining blood sample) use: Peripheral IV = 10 mL Midline or Central Line = 20 mL/lumen 1712 (Given - Provid er: MARCOS QUICK) Scheduled Medication Order 06/04/2022 06/05/2022 06/06/2022 amiodarone (CORDARONE) tablet 200 mg 200 mg, Oral, 2 TIMES DAILY, First dose (after last modification) on 06/04/22 at 0900, Until Discontinued, Hold for QTC greater than 500 and HR less than 60., Post-op 09 (Given - Provider: Marge Lopez, RN)2025 (Given - Provider: Sukh Borja, BAUTISTA) 0741 (Given - Provider: Martha Irizarry, BAUTISTA)2016 (Given - Provider: Elena Alvarado, BAUTISTA) 0851 (Given - Provider: Patricia Ochoa RN)2100 (Due) aspirin EC tablet 81 mg 81 mg, Oral, DAILY, First dose on Kathy 06/02/22 at 1845, Until Discontinued, Do not crush or break. Please hold for platelets less than 100,000, Post-op 901 (Given - Provider: Marge Lopez, BAUTISTA) 0742 (Given - Provider: Martha Irizarry, BAUTISTA) 0851 (Given - Provider: Patricia Ochoa RN) atorvastatin (LIPITOR) tablet 20 mg 20 mg, Oral, NIGHTLY, First dose on Mon06/03/22 at 2100, Until Discontinued, Please hold for elevated liver function enzymes, Post-op 2025 (Given - Provider: Sukh Borja, BAUTISTA) 2016 (Given - Provider: Elena Alvarado, BAUTISTA) 2100 (Due) ceFAZolin (ANCEF) 3000 mg in sterile water 30 mL IV syringe (COMPLETED) 3,000 mg, IntraVENous, EVERY 8 HOURS, 5 doses, First dose (after last reorder) on Kathy 06/02/22 at 2200, Last dose on 06/04/22 at 0600, Antimicrobial Indications: Surgical Prophylaxis, Administer over 5 mins., Post-op 0620 (Given - Provider: Pari Mullins RN) clopidogrel (PLAVIX) tablet 75 mg 75 mg, Oral, DAILY, First dose on Mon06/03/22 at 0900, Until Discontinued, Please hold for platelets less than 100,000, Post-op 0902 (Given - Provider: Marge Lopez RN) 0742 (Given - Provider: Martha Irizarry, BAUTISTA) 0859 (Given - Provider: Patricia Ochoa RN) furosemide (LASIX) injection 20 mg (COMPLETED) 20 mg, IntraVENous, ONCE, 1 dose, On Mon06/05/22 at 1000 1011 (Given - Provider: Martha Irizarry, BAUTISTA) insulin glargine (LANTUS) injection vial 19 Units 19 Units (rounded from 19.035 Units = 0.15 Units/kg 126.9 kg), SubCUTAneous, NIGHTLY, First dose on Mon06/03/22 at 2100, Until Discontinued, Hold if BG is less than 160. If patient is NOT diabetic discontinue order. If patient takes Lantus at home - notify CTS team., Post-op 2048 (Given - Provider: Sukh Borja RN) 2045 (Given - Provider: Elena Alvarado, BAUTISTA - Comment: bg 226) 2099 (Due) insulin lispro (HUMALOG) injection vial 0-3 Units 0-3 Units, SubCUTAneous, NIGHTLY, First dose on Mon06/02/22 at 2100, Until Discontinued, If continuous tube feedings/TPN/NPO, give correction dose based on result, no reduction in dose. If eating or bolus tube feeding: Corrective Bedtime (50%) Low Dose Algorithm Glucose: Dose: 70-139 No Insulin 140-249 1 Unit 250-349 2 Units Over 350 3 Units, Post-op 2047 (Given - Provider: Sukh Borja RN) 2047 (Given - Provider: Elena Alvarado, BAUTISTA - Comment: bg 226) 2100 (Due) insulin lispro (HUMALOG) injection vial 0-6 Units 0-6 Units, SubCUTAneous, 3 TIMES DAILY WITH MEALS, First dose on Mon06/02/22 at 1845, Until Discontinued, Corrective Low Dose Algorithm Glucose: Dose: 70-139 No Insulin 140-199 1 Unit 200-249 2 Units 250-299 3 Units 300-349 4 Units 350-399 5 Units Over 399 6 Units, Post-op 09 (Given - Provider: Marge Lopez RN)1306 (Given - Provider: Marge Lopez RN)1822 (Given - Provider: Marge Lopez RN) 0741 (Given - Provider: Martha Irizarry RN)1137 (Given - Provider: Martha Irizarry RN)1647 (Given - Provider: Yasmin Jj RN) 0854 (Not Given - Provider: Patricia Ochoa RN - Reason: Order parameters not met)1244 (Not Given - Provider: Patricia Ochoa RN - Reason: Order parameters not met)1700 (Due) metoprolol tartrate (LOPRESSOR) tablet 12.5 mg (CANCELED) 12.5 mg, Oral, 2 TIMES DAILY, First dose on Kathy 06/02/22 at 2100, Until Discontinued, Hold for pulse less than 60, SBP less than 100, if patient on vasopressors, or if patient has a temporary pacemaker, Post-op 2025 (Given - Provider: Sukh Borja RN) 0741 (Given - Provider: Martha Irizarry RN)1009 (Canceled Entry - Provider: Martha Irizarry RN) metoprolol tartrate (LOPRESSOR) tablet 25 mg 25 mg, Oral, 2 TIMES DAILY, First dose (after last modification) on Mon06/05/22 at 2100, Until Discontinued, Hold for pulse less than 60, SBP less than 100, if patient on vasopressors, or if patient has a temporary pacemaker, Post-op 2016 (Given - Provider: Elena Alvarado RN) 0858 (Given - Provider: Patricia Ochoa RN)2099 (Due) mupirocin (BACTROBAN) 2 % ointment Each Nostril, 2 TIMES DAILY, First dose on Kathy 06/02/22 at 2100, For 10 doses, Post-op 09 (Given - Provider: Marge oLpez RN)2026 (Given - Provider: Sukh Borja RN) 0744 (Given - Provider: Martha Irizarry, BAUTISTA)2016 (Given - Provider: Elena Alvarado RN) 0859 (Given - Provider: Patricia Ochoa RN)2100 (Due) pantoprazole (PROTONIX) tablet 40 mg 40 mg, Oral, DAILY, First dose on Kathy 06/02/22 at 1845, Until Discontinued, Do not crush or break., Day 1 or when extubated, Post-op 0902 (Given - Provider: Marge Lopez RN) 0741 (Given - Provider: Martha Irizarry, BAUTISTA) 0859 (Given - Provider: Patricia Ochoa, RN) polyethylene glycol (GLYCOLAX) packet 17 g 17 g, Oral, DAILY, First dose on Kathy 06/02/22 at 1845, Until Discontinued, Stir and dissolve one packet of powder (17 g) in any 4 to 8 ounces of beverage (cold, hot or room temperature) then drink, Post-op 0903 (Given - Provider: Marge Lopez RN) 0741 (Given - Provider: Martha Irizarry, BAUTISTA) 0852 (Not Given - Provider: Patricia Ochoa RN - Reason: Patient/family refused) sennosides-docusate sodium (SENOKOT-S) 8.6-50 MG tablet 1 tablet 1 tablet, Oral, 2 TIMES DAILY, First dose on Kathy 06/02/22 at 2100, Until Discontinued, Post-op 1305 (Given - Provider: Marge Lopez RN - Comment: med not available earlier)2025 (Given - Provider: Sukh Borja, BAUTISTA) 0742 (Given - Provider: Martha Irizarry, BAUTISTA)2017 (Given - Provider: Elena Alvarado, BAUTISTA) 0851 (Not Given - Provider: Patricia Ochoa, RN - Reason: Patient/family refused)2100 (Due) sodium chloride flush 0.9 % injection 5-40 mL 5-40 mL, IntraVENous, EVERY 12 HOURS SCHEDULED (2 times per day), First dose on Kathy 06/02/22 at 2100, Until Discontinued, For Line Patency: Peripheral IV = 5 mL; Midline or Central Line = 10 mL/lumen. If following IV push medication, administer flush at same rate as the IV push. Flush volume is determined by type of infusion therapy being given. For non-viscous solutions use: Peripheral IV = 5 mL Midline or Central Line = 10 mL/lumen For viscous solutions (i.e. blood components, parenteral nutrition, contrast media, or after obtaining blood sample) use: Peripheral IV = 10 mL Midline or Central Line = 20 mL/lumen, Post-op 0903 (Given - Provider: Marge Lopez, BAUTISTA)2025 (Given - Provider: Sukh Borja, RN) 075 (Given - Provider: Martha Irizarry, BAUTISTA)2049 (Given - Provider: Elena Alvarado, BAUTISTA) 0852 (Given - Provider: Patricia Ochoa, RN)2100 (Due) tamsulosin (FLOMAX) capsule 0.4 mg 0.4 mg, Oral, DAILY, First dose on 06/04/22 at 1145, Until Discontinued, Do not crush or break. 1305 (Given - Provider: Marge Lopez RN) 0744 (Given - Provider: Martha Irizarry, BAUTISTA) 0856 (Given - Provider: Patricia Ochoa, RN) Continuous Medication Order 06/04/2022 06/05/2022 06/06/2022 propofol injection 10 mcg/kg/min 126.9 kg (7.614 mL/hr, rounded to 7.6 mL/hr), IntraVENous, CONTINUOUS, Starting on Kathy 06/02/22 at 1845, Until Discontinued, Titrate Infusion? Yes, Initial Infusion Dose: 10 mcg/kg/min, Goal of Therapy: RASS of -1 to 1, Contact Provider if: Patient is receiving maximum dose and is not achieving the goal of therapy, For sedation, titrate to RASS -1 to -2 Dose Range: 5 to 50 mcg/kg/min Max dose: 50 mcg/kg/min Contact physician if max dose does not achieve desired response If RASS 1 point below goal - decrease dose by 5mcg/kg/min no faster than every 5 min If RASS 2 points below goal- decrease dose by 10mcg/kg/min no faster than every 5 min If RASS at goal, continue current dose If RASS 2 or more points above goal - increase dose by 10mcg/kg/min no faster than every 5 min If RASS 1 point above goal - increase dosee by 5mcg/kg/min no faster than every 5 min If after titration rate change patient exhibits adverse hemodynamic response, next titration rate change may be adjusted by one-half of the previous rate change If patient fails sedation interruption, resume propofol titration at 50% of previous rate Do not administer through the same I.V. catheter with blood or plasma. Tubing and any unused portions of propofol vials should be discarded after 12 hours., Post-op PRN Medication Order 06/04/2022 06/05/2022 06/06/2022 0.9 % sodium chloride infusion IntraVENous, at 50 mL/hr, PRN, Use as chaser for manifold, Starting on Kathy 06/02/22 at 1824, Use as chaser for manifold. D/C when manifold is torn down., Post-op 0.9 % sodium chloride infusion IntraVENous, at 5-250 mL/hr, PRN, if patient receiving piggyback infusions and maintenance fluids are not ordered OR KVO fluids to protect IV site / prevent frequent line interruptions/ long duration, Starting on Kathy 06/02/22 at 1824, For piggyback infusion, administer at same rate as piggyback for a total of 25 mL. Enter 25 mL into dose field and piggyback rate into rate field of order. If piggyback is infusing at a rate less than 100 mL/hr, enter 25 mL into dose field and 100 mL/hr into rate field of order. For KVO fluids, enter rate of 20 mL/hr or less into rate field of order., Post-op albumin human 25 % IV solution 25 g 25 g, IntraVENous, PRN, Starting on Kathy 06/02/22 at 1824, Until Discontinued, Administer over 60 Minutes, at 100 mL/hr, Other, Low CI and/or Low BP and /or Low urine output per hemodynamic goals., In the event the 5% 25 gram 500 mL bottles of albumin are unavailable - please dilute this bottle in 400 mL's of normal saline. Do not give greater than 4 bottles total after surgery. Contact CTS team if patient does not meet hemodynamic goals., Post-op albumin human 5 % IV solution 25 g 25 g, IntraVENous, at 500 mL/hr, Administer over 60 Minutes, PRN, Other, PAD below goal and Low CI and/or Low BP and /or Low urine output per hemodynamic goals, Starting on Kathy 06/02/22 at 1824, Up to a max of 2000 mL. Notify surgeon for further orders if max volume infused., Post-op bisacodyl (DULCOLAX) suppository 10 mg 10 mg, Rectal, DAILY PRN, Starting on Kathy 06/02/22 at 1824, Until Discontinued, Constipation, Second line therapy for constipation, After 24 hours, if no result from first line PRN therapy, give second line therapy in combination with first line therapy., Post-op dextrose 10 % infusion IntraVENous, at 100 mL/hr, CONTINUOUS PRN, if blood glucose remains LESS THAN 70 mg/dL after 2 dextrose 10% intravenous boluses or administration of glucagon, Starting on Kathy 06/02/22 at 1824, If blood glucose fails to stabilize after 2 dextrose 10% intravenous boluses or glucagon administration, start dextrose 10% infusion at 100 mL/hour and repeat blood glucose at 30 and 60 minutes. If blood glucose is GREATER THAN 70 mg/dL after 60 minutes, discontinue dextrose 10% infusion., Post-op dextrose bolus 10% 125 mL(Linked Group 1) 125 mL, IntraVENous, at 937.5 mL/hr, Administer over 8 Minutes, PRN, Other, Blood glucose 40 - 69 mg/dL and patient NOT ALERT or NPO, Starting on Kathy 06/02/22 at 1824, Start D5W at 100 mL/hour until ordering provider can be reached. Repeat blood glucose in 15 minutes. If blood glucose is 40 - 69 mg/dL, repeat treatment and recheck blood glucose in 15 minutes x 2. If using Glucostabilizer, dose as instructed per system., Post-op dextrose bolus 10% 250 mL(Linked Group 1) 250 mL, IntraVENous, at 937.5 mL/hr, Administer over 16 Minutes, PRN, Other, Blood glucose LESS than 40 mg/dL and patient NOT ALERT or NPO, Starting on Kathy 06/02/22 at 1824, Start D5W at 100 mL/hour until ordering provider can be reached. Repeat blood glucose in 15 minutes. If blood glucose is LESS than 40 mg/dL, repeat treatment and recheck blood glucose in 15 minutes x 2. If using Glucostabilizer, dose as instructed per system., Post-op diphenhydrAMINE (BENADRYL) tablet 25 mg 25 mg, Oral, NIGHTLY PRN, Starting on Mon06/03/22 at 0000, Until Discontinued, Sleep, Post-op fentaNYL (SUBLIMAZE) injection 25 mcg(Linked Group 2) 25 mcg, IntraVENous, EVERY 1 HOUR PRN, Starting on Kathy 06/02/22 at 1824, Until Discontinued, Pain Moderate (4-6), If oral and IV narcotics ordered, use oral first and only use IV if oral is ineffective or cannot take oral. Do Not give oral and IV within 1 hour of each other unless specifically ordered., Post-op 0212 (Given - Provider: Pari Mullins RN)0632 (Given - Provider: Pari Mullins RN) 1315 (See Alternative - Provider: Martha Irizarry, RN) 0726 (See Alternative - Provider: Elena Alvarado, RN) fentaNYL (SUBLIMAZE) injection 50 mcg(Linked Group 2) 50 mcg, IntraVENous, EVERY 1 HOUR PRN, Starting on Kathy 06/02/22 at 1824, Until Discontinued, Pain Severe (7-10), If oral and IV narcotics ordered, use oral first and only use IV if oral is ineffective or cannot take oral. Do Not give oral and IV within 1 hour of each other unless specifically ordered., Post-op 021 (See Alternative - Provider: Pari Mullins RN)0632 (See Alternative - Provider: Pari Mullins RN) 1315 (Given - Provider: Martha Irizarry, BAUTISTA) 0726 (Given - Provider: Elena Alvarado, RN) glucagon (rDNA) injection 1 mg 1 mg, IntraMUSCular, PRN, Starting on Kathy 06/02/22 at 1824, Until Discontinued, Low blood sugar, Blood glucose less than 70 mg/dL and patient NOT ALERT or NPO and does not have IV access., After administration, attempt intravenous access and start D5W at 100 mL/hr. Repeat blood glucose in 15 minutes x2 and notify provider., Post-op glucose chewable tablet 16 g 16 g (4 tablet), Oral, PRN, Starting on Kathy 06/02/22 at 1824, Until Discontinued, Low blood sugar, If blood glucose is LESS THAN 70 mg/dL and patient is alert and tolerating oral. Give 4 tablets (16g) Repeat blood glucose in 15 minutes. If blood glucose is LESS THAN 70 mg/dL, repeat treatment and recheck blood glucose in 15 minutes x 2. If blood glucose remains LESS THAN 70 mg/dL, notify provider., Post-op hydrALAZINE (APRESOLINE) injection 5 mg 5 mg, IntraVENous, EVERY 5 MIN PRN, Starting on Kathy 06/02/22 at 1824, Until Discontinued, High Blood Pressure, Give for sustained SBP > 160, Refer to hemodynamic goals for specific blood pressure parameters. May repeat doses up to a total of 20mg IV every 6 hours., Post-op ipratropium-albuterol (DUONEB) nebulizer solution 1 ampule 1 ampule, Inhalation, EVERY 4 HOURS PRN, Starting on Kathy 06/02/22 at 1824, Until Discontinued, Shortness of Breath, Initiate RT Bronchodilator Protocol: Yes, Post-op magnesium hydroxide (MILK OF MAGNESIA) 400 MG/5ML suspension 30 mL 30 mL, Oral, DAILY PRN, Starting on Kathy 06/02/22 at 1824, Until Discontinued, Constipation, First line therapy for constipation., Post-op magnesium sulfate 2000 mg in 50 mL IVPB premix 2,000 mg, IntraVENous, at 25 mL/hr, Administer over 2 Hours, PRN, Other, hypomagnesemia, Starting on Kathy 06/02/22 at 1824, Via central line - do not use if urine output below 30 mL/hr or if patient is on peritoneal or hemodialysis. Magnesium Level: Dose: Less than or equal to 1 mg/dL Give 2 grams times 2 doses (4 grams Total) at 1 gm/hr. Notify provider when starting replacement. Monitor BP and EKG. 1.1 - 1.5 mg/dL Give 2 grams times 2 doses (4 grams Total) at 1 gm/hr. 1.6 - 1.9 mg/dL Give 2 grams times 1 dose at 1 gm/hr. Greater than 1.9 mg/dL No replacement. Repeat Magnesium level 60 minutes post infusion., Post-op ondansetron (ZOFRAN) injection 4 mg(Linked Group 3) 4 mg, IntraVENous, EVERY 6 HOURS PRN, Starting on Kathy 06/02/22 at 1824, Until Discontinued, Nausea, Vomiting, Administer if oral route cannot be used., Post-op ondansetron (ZOFRAN-ODT) disintegrating tablet 4 mg(Linked Group 3) 4 mg, Oral, EVERY 8 HOURS PRN, Starting on Kathy 06/02/22 at 1824, Until Discontinued, Nausea, Vomiting, Post-op oxyCODONE-acetaminophen (PERCOCET) 5-325 MG per tablet 1 tablet(Linked Group 4) 1 tablet, Oral, EVERY 4 HOURS PRN, Starting on Kathy 06/02/22 at 1824, Until Discontinued, Pain Moderate (4-6), Maximum dose of acetaminophen is 4000 mg from all sources in 24 hours., Post-op 0155 (See Alternative - Provider: Pari Mullins RN)0901 (See Alternative - Provider: Marge Lopez RN)1305 (See Alternative - Provider: Marge Lopez RN)1727 (See Alternative - Provider: Marge Lopez RN)2320 (See Alternative - Provider: Sukh Borja RN) 0615 (See Alternative - Provider: Sukh Borja RN)1014 (See Alternative - Provider: Martha Irizarry, BAUTISTA)164 (See Alternative - Provider: Yasmin Jj, RN)2024 (Given - Provider: Elena Alvarado, BAUTISTA) 035 (See Alternative - Provider: Elena Alvarado RN)133 (See Alternative - Provider: Patricia Ochoa RN) oxyCODONE-acetaminophen (PERCOCET) 5-325 MG per tablet 2 tablet(Linked Group 4) 2 tablet, Oral, EVERY 4 HOURS PRN, Starting on Kathy 06/02/22 at 1824, Until Discontinued, Pain Severe (7-10), Maximum dose of acetaminophen is 4000 mg from all sources in 24 hours., Post-op 0155 (Given - Provider: Pari Mullins RN)0901 (Given - Provider: Marge Lopez RN)1305 (Given - Provider: Marge Lopez RN)1727 (Given - Provider: Marge Lopez RN)2320 (Given - Provider: Sukh Borja RN) 0615 (Given - Provider: Sukh Borja RN)1014 (Given - Provider: Martha Irizarry, BAUTISTA)164 (Given - Provider: Yasmin Jj, BAUTISTA)2024 (See Alternative - Provider: Elena Alvarado, BAUTISTA) 035 (Given - Provider: Elena Alvarado, BAUTISTA)133 (Given - Provider: Patricia Ochoa RN) potassium chloride 20 mEq/50 mL IVPB (Central Line) 20 mEq, IntraVENous, PRN, Starting on Kathy 06/02/22 at 1824, Until Discontinued, Administer over 60 Minutes, at 50 mL/hr, Other, hypokalemia, Via central line - do not use if urine output is below 30 mL/hr or if patient is on peritoneal or hemodialysis. Potassium level: Dose: Less than 2.7 mmol/L Give 20 mEq times 2 doses (40 mEq Total) at 20 mEq/hr and notify provider when starting replacement. 2.7 - 3.9 mmol/L Give 20 mEq times 2 doses (40 mEq Total) at 20 mEq/hr. 4 - 4.4 mmol/L Give 20mEq times 1 dose at 20 mEq/hr. 4.5 - 5.8 mmol/L No replacement. Greater than 5.8 mmol/L Notify provider. Repeat potassium level 30 minutes post-infusion and follow protocol as indicated., Post-op sodium chloride flush 0.9 % injection 5-40 mL 5-40 mL, IntraVENous, PRN, Starting on Kathy 06/02/22 at 1824, Until Discontinued, Line Care, After every IV line use, For Line Patency: Peripheral IV = 5 mL; Midline or Central Line = 10 mL/lumen. If following IV push medication, administer flush at same rate as the IV push. Flush volume is determined by type of infusion therapy being given. For non-viscous solutions use: Peripheral IV = 5 mL Midline or Central Line = 10 mL/lumen For viscous solutions (i.e. blood components, parenteral nutrition, contrast media, or after obtaining blood sample) use: Peripheral IV = 10 mL Midline or Central Line = 20 mL/lumen, Post-op Linked Groups Order Group 1: dextrose bolus 10% 125 mLJump to med 125 mL, IntraVENous, at 937.5 mL/hr, Administer over 8 Minutes, PRN, Other, Blood glucose 40 - 69 mg/dL and patient NOT ALERT or NPO, Starting on Kathy 06/02/22 at 1824
Start D5W at 100 mL/hour until ordering provider can be reached. Repeat blood glucose in 15 minutes. If blood glucose is 40 - 69 mg/dL, repeat treatment and recheck blood glucose in 15 minutes x 2. If using Glucostabilizer, dose as instructed per system.
Post-op Or dextrose bolus 10% 250 mLJump to med 250 mL, IntraVENous, at 937.5 mL/hr, Administer over 16 Minutes, PRN, Other, Blood glucose LESS than 40 mg/dL and patient NOT ALERT or NPO, Starting on Kathy 06/02/22 at 1824
Start D5W at 100 mL/hour until ordering provider can be reached. Repeat blood glucose in 15 minutes. If blood glucose is LESS than 40 mg/dL, repeat treatment and recheck blood glucose in 15 minutes x 2. If using Glucostabilizer, dose as instructed per system.
Post-op Group 2: fentaNYL (SUBLIMAZE) injection 25 mcgJump to med 25 mcg, IntraVENous, EVERY 1 HOUR PRN, Starting on Kathy 06/02/22 at 1824, Until Discontinued, Pain Moderate (4-6)
If oral and IV narcotics ordered, use oral first and only use IV if oral is ineffective or cannot take oral. Do Not give oral and IV within 1 hour of each other unless specifically ordered.
Post-op Or fentaNYL (SUBLIMAZE) injection 50 mcgJump to med 50 mcg, IntraVENous, EVERY 1 HOUR PRN, Starting on Kathy 06/02/22 at 1824, Until Discontinued, Pain Severe (7-10)
If oral and IV narcotics ordered, use oral first and only use IV if oral is ineffective or cannot take oral. Do Not give oral and IV within 1 hour of each other unless specifically ordered.
Post-op Group 3: ondansetron (ZOFRAN-ODT) disintegrating tablet 4 mgJump to med 4 mg, Oral, EVERY 8 HOURS PRN, Starting on Kathy 06/02/22 at 1824, Until Discontinued, Nausea, Vomiting, Post-op Or ondansetron (ZOFRAN) injection 4 mgJump to med 4 mg, IntraVENous, EVERY 6 HOURS PRN, Starting on Kathy 06/02/22 at 1824, Until Discontinued, Nausea, Vomiting
Administer if oral route cannot be used.
Post-op Group 4: oxyCODONE-acetaminophen (PERCOCET) 5-325 MG per tablet 1 tabletJump to med 1 tablet, Oral, EVERY 4 HOURS PRN, Starting on Kathy 06/02/22 at 1824, Until Discontinued, Pain Moderate (4-6)
Maximum dose of acetaminophen is 4000 mg from all sources in 24 hours.
Post-op Or oxyCODONE-acetaminophen (PERCOCET) 5-325 MG per tablet 2 tabletJump to med 2 tablet, Oral, EVERY 4 HOURS PRN, Starting on Kathy 06/02/22 at 1824, Until Discontinued, Pain Severe (7-10)
Maximum dose of acetaminophen is 4000 mg from all sources in 24 hours.
Post-op (unrecognized sect ion and content) No Status Records FoundNo Status Records FoundNo Status Records FoundNo Status Records FoundNo Status Records FoundNo Status Records FoundNo Status Records FoundNo Status Records FoundNo Status Records Found INFORMATION SOURCE (unrecogn ized section and content) DATE CREATED AUTHOR 04/09/2022 [facility] DATE CREATED AUTHOR AUTHOR'S ORGANIZ ATION 05/25/2022 [facility] DATE CREATED AUTHOR AUTHOR'S ORGANIZ ATION 10/24/2022 [facility] DATE CREATED AUTHOR AUTHOR'S ORGANIZ ATION 04/03/2023 [facility] DATE CREATED AUTHOR AUTHOR'S ORGANIZ ATION 09/06/2023 [facility] DATE CREATED AUTHOR AUTHOR'S ORGANIZ ATION 02/16/2024 [facility] DATE CREATED AUTHOR AUTHOR'S ORGANIZ ATION 06/12/2024 [facility] DATE CREATED AUTHOR AUTHOR'S ORGANIZ ATION 11/16/2024 [facility] DATE CREATED AUTHOR AUTHOR'S ORGANIZ ATION 11/16/2024 [facility] FOR RECORDS PERTAINING TO PATIENTS WHO ARE OR HAVE BEEN ENROLLED IN A CHEMICAL DEPENDENCY/SUBSTANCEABUSE PROGRAM, SOME INFORMATION MAY BE OMITTED. This clinical summary was aggregated from multiple sources. Caution should be exercised in using it in the provision of clinical care. This summary normalizes information from multiple sources, and as a consequence, information in this document may materially change the coding, format and clinical context of patient data. In addition, data may be omitted in some cases. CLINICAL DECISIONS SHOULD BE BASED ON THE PRIMARY CLINICAL RECORDS. [facility]. provides no warranty or guarantee of the accuracy or completeness of information in this document.
--- NOTE | 2024-12-07 15:23 | ED.GENADUL1 ---
HPI HPI - General Adult General Chief complaint: Skin/Abscess/Foreign Body Stated complaint: INSECT BITE'S Time Seen by Provider: 12/07/24 15:09 Source: patient Mode of arrival: walk-in Limitations: no limitations History of Present Illness HPI narrative: Patient is a 39-year-old male with a past medical history of diabetes and open heart surgery on aspirin/Plavix that presents with complaints of multiple bite wounds that are itchy after he was in [place] at someone's house and trying to sleep. He thinks that they were bedbugs. This happened a week ago on Monday. In the past week there has been no signs of drainage from any of the wounds no increasing redness, no fever, night sweats, or chills. Related Data Home Medications ?Medication ?Instructions ?Recorded ?Confirmed amiodarone 200 mg tablet 200 mg PO QDAY 04/10/23 04/24/23 aripiprazole 5 mg tablet 5 mg PO DAILY 04/10/23 04/24/23 aspirin 81 mg tablet,delayed 81 mg PO DAILY 04/10/23 04/24/23 release (Adult Low Dose Aspirin) atorvastatin 80 mg PO DAILY 04/10/23 04/24/23 carvedilol 25 mg tablet 25 mg PO BID 04/10/23 04/24/23 cetirizine 10 mg capsule (All Day 10 mg PO DAILY PRN aller 04/10/23 04/24/23 Allergy (cetirizine)) cinacalcet 30 mg tablet 30 mg PO DAILY 04/10/23 04/24/23 clopidogrel 75 mg tablet 75 mg PO DAILY 04/10/23 04/24/23 dapagliflozin propanediol 10 mg 10 mg PO DAILY 04/10/23 04/24/23 tablet dulaglutide 1.5 mg/0.5 mL 1.5 mg subcut QWEEK 04/10/23 04/24/23 subcutaneous pen injector fluoxetine 20 mg capsule 20 mg PO DAILY 04/10/23 04/24/23 fluticasone propionate 50 2 spray intranasal DAILY PRN 04/10/23 04/24/23 mcg/actuation nasal congestion spray,suspension (Allergy Relief (fluticasone)) metoprolol succinate 25 mg 25 mg PO DAILY 04/10/23 04/24/23 tablet,extended release 24 hr lisinopril 5 mg tablet 5 mg PO DAILY 04/24/23 04/24/23 Previous Rx's ?Medication ?Instructions ?Recorded cefdinir 300 mg capsule 300 mg PO BID 10 days #20 caps 04/24/23 meclizine 25 mg chewable tablet 25 mg PO QID PRN dizziness #12 tabs 04/24/23 (Antivert) ondansetron 4 mg disintegrating 4 mg PO Q6H PRN nausea and 04/24/23 tablet vomiting #12 tabs diphenhydramine HCl 25 mg capsule 25 mg PO .at night PRN itching #7 12/07/24 (Benadryl) caps prednisone 50 mg tablet 50 mg PO DAILY 5 days #5 tabs 12/07/24 Allergies Allergy/AdvReac Type Severity Reaction Status Date / Time No Known Drug Allergies Allergy Verified 12/07/24 15:15 Review of Systems ROS Status of ROS 10 or more systems reviewed and unremarkable except as noted in history and below [facility] Medical History (Updated 12/07/24 @ 15:44 by WILL Benson) COVID-19 ?U07.1 - COVID-19 (ICD-10) Seasonal allergic rhinitis ?J30.2 - Other seasonal allergic rhinitis (ICD-10) Hyperlipidemia ?E78.5 - Hyperlipidemia, unspecified (ICD-10) Hypertension ?I10 - Essential (primary) hypertension (ICD-10) Myocardial infarction ?I21.9 - Acute myocardial infarction, unspecified (ICD-10) CVA (cerebral vascular accident) ?I63.9 - Cerebral infarction, unspecified (ICD-10) Tongue lesion ?K14.8 - Other diseases of tongue (ICD-10) Surgical History (Updated 04/10/23 @ 08:21 by Clint Vargas) Status post biopsy of kidney ?Z98.890 - Other specified postprocedural states (ICD-10) H/O partial thyroidectomy ?E89.0 - Postprocedural hypothyroidism (ICD-10) H/O parathyroidectomy ?Z98.890 - Other specified postprocedural states (ICD-10) ?Z90.89 - Acquired absence of other organs (ICD-10) History of coronary artery bypass graft ?Z95.1 - Presence of aortocoronary bypass graft (ICD-10) Family History (Updated 04/10/23 @ 08:30 by Clint Vargas) Mother Family history of diabetes mellitus Social History Smoking status: Light tobacco smoker Little interest or pleasure in doing things: not at all Feeling down, depressed, or hopeless: not at all Exam Narrative Exam Narrative: General: No distress, age-appropriate Skin: Warm, dry, no pallor. Multiple erythematous, pruritic papules approximately 2?5 mm in diameter, some with central puncta, distributed in a linear or clustered pattern on the bilateral ventral forearms and posterior calves and somewhat onto the top of the foot. No signs of secondary infection?no warmth, fluctuance, purulent drainage, or lymphangitic streaking. No excoriations. Head: Normocephalic, atraumatic. Neck: Supple, non-tender. Eye: Pupils are equal, round and EOMI. No scleral icterus. Ears, Nose, Mouth, and Throat: No nasal mucosal hypertrophy. Oral mucosa is moist, no posterior oropharynx erythema, uvula is mid-line Cardiovascular: Regular Rate and Rhythm without murmur, gallop or rub. Respiratory: No accessory muscle use or respiratory distress. Lungs are clear to auscultation, no wheezing, rales or rhonchi Musculoskeletal: Full ROM of all extremities, no calf or popliteal tenderness GI: Abdomen is soft, non-distended, non tender to palpation. No masses appreciated. No rebound, guarding, or rigidity noted. Neurological: A&O x4. No cranial nerve dysfunction observed. No truncal ataxia. Moves all extremities. Sensation intact. Psychiatric: Cooperative and interactive. Normal mood and affect. Constitutional Vital Signs, click to edit/add: Last Vital Signs Temp 98.0 F 12/07/24 15:09 Pulse 87 12/07/24 15:09 Resp 16 12/07/24 15:09 BP 133/96 H 12/07/24 15:09 Pulse Ox 97 12/07/24 15:09 O2 Del Method Room Air 12/07/24 15:09 Documenting provider has reviewed patient's vital signs: yes Course Vital Signs Vital signs: Vital Signs Temperature 98.0 F 12/07/24 15:09 Pulse Rate 87 12/07/24 15:09 Respiratory Rate 16 12/07/24 15:09 Blood Pressure 133/96 H 12/07/24 15:09 Pulse Oximetry 97 12/07/24 15:09 Oxygen Delivery Method Room Air 12/07/24 15:09 Temperature 98.0 F 12/07/24 15:09 Pulse Rate 87 12/07/24 15:09 Respiratory Rate 16 12/07/24 15:09 Blood Pressure 133/96 H 12/07/24 15:09 Pulse Oximetry 97 12/07/24 15:09 Oxygen Delivery Method Room Air 12/07/24 15:09 Medical Decision Making MDM Narrative Medical decision making narrative: This is a 39-year-old male that presented to the emergency department with complaints of multiple scattered bug bites to his forearms and the back of his legs/upper feet after he was in [place] last week at someone's house. He thinks they are bedbugs. There has not been any change in any of the bites since last Monday when they happen. He denies any fever, night sweats, or chills. Patient states his significant other is concerned as he has had MRSA infection in the past. He does have a extensive cardiac history and has diabetes. On exam patient is in no distress, the bilateral forearms and bilateral/upper feet have multiple erythematous, non-infected papules in a linear and clustered distribution, typical of bed bug bites. These areas were all palpated and do not appear to have any induration of any of the bites. There is no erythema surrounding the bites. No vesicles or bullae. No fluctuance, warmth, or purulent drainage observed. Vitals are stable, and there are no systemic signs of infection or allergic reaction. Given the absence of infection or systemic involvement, no antibiotics or imaging are indicated at this time. Due to ongoing inflammation and pruritus, patient was treated symptomatically with: Prednisone 50 mg PO daily x 5 days for inflammatory response Diphenhydramine 25 mg PO at bedtime for pruritus and sleep support Patient was advised to avoid scratching, monitor for signs of secondary infection (e.g., increasing redness, swelling, drainage, fever), and follow up with PCP or return to the ED if symptoms worsen or new symptoms arise. Pest control and environmental decontamination discussed and patient states that he has taken care of that. Differential Diagnosis Differential Diagnosis: Bedbug bites, infection Discharge Plan Discharge Chief Complaint: Skin/Abscess/Foreign Body Clinical Impression: Insect bites Patient Disposition: Home, Self-Care Time of Disposition Decision: 15:43 Condition: Good Mode of Transportation: Private Vehicle Prescriptions / Home Meds: New prednisone 50 mg tablet 50 mg PO DAILY 5 Days Qty: 5 0RF diphenhydramine HCl [Benadryl] 25 mg capsule 25 mg PO .at night PRN (Reason: itching) Qty: 7 0RF No Action lisinopril 5 mg tablet 5 mg PO DAILY ondansetron 4 mg tablet,disintegrating 4 mg PO Q6H PRN (Reason: nausea and vomiting) Qty: 12 0RF cefdinir 300 mg capsule 300 mg PO BID 10 Days Qty: 20 0RF meclizine [Antivert] 25 mg tablet,chewable 25 mg PO QID PRN (Reason: dizziness) Qty: 12 0RF amiodarone 200 mg tablet 200 mg PO QDAY aripiprazole 5 mg tablet 5 mg PO DAILY aspirin [Adult Low Dose Aspirin] 81 mg tablet,delayed release (DR/EC) 81 mg PO DAILY atorvastatin 80 mg PO DAILY carvedilol 25 mg tablet 25 mg PO BID Rx Instructions: must administer with a meal/food All Day Allergy (cetirizine) 10 mg capsule 10 mg PO DAILY PRN (Reason: aller) cinacalcet 30 mg tablet 30 mg PO DAILY clopidogrel 75 mg tablet 75 mg PO DAILY dapagliflozin propanediol 10 mg tablet 10 mg PO DAILY dulaglutide 1.5 mg/0.5 mL pen injector 1.5 mg subcut QWEEK fluoxetine 20 mg capsule 20 mg PO DAILY fluticasone propionate [Allergy Relief (fluticasone)] 50 mcg/actuation spray,suspension 2 spray intranasal DAILY PRN (Reason: congestion) Rx Instructions: administer into each nostril metoprolol succinate 25 mg tablet extended release 24 hr 25 mg PO DAILY Print Language: Belarusian Instructions: Bed Bugs (ED) Additional Instructions: Patient Education & Precautions Signs of infection to watch for: Redness spreading Increased warmth, tenderness, swelling Drainage of pus Fever or chills Given MRSA history, advise close follow-up with Primary Care provider or return to the Emergency Department if any of the above appear. Discharge Instructions Start antihistamines and steroid Avoid scratching to reduce risk of secondary infection Clean environment and consider pest control for bed bugs Return to ER or PCP if: Any signs of infection Fever Lesions become more painful or draining Referrals: Physician,Non-Staff, MD [Primary Care Provider] - 1 week Discharge Date/Time: 12/07/24 16:02
== END 2024-12-07 16:02 | disposition home or self-care (01) ==
PROVIDERS: Emergency Provider Emergency Medicine
DX: S50.862A Insect bite (nonvenomous) of left forearm, initial encounter (principal); S50.861A Insect bite (nonvenomous) of right forearm, initial encounter; S80.862A Insect bite (nonvenomous), left lower leg, initial encounter; S80.861A Insect bite (nonvenomous), right lower leg, initial encounter; S90.869A Insect bite (nonvenomous), unspecified foot, initial encounter; W57.XXXA Bitten or stung by nonvenomous insect and other nonvenomous arthropods, initial encounter; Z86.14 Personal history of Methicillin resistant Staphylococcus aureus infection; E11.9 Type 2 diabetes mellitus without complications; F17.200 Nicotine dependence, unspecified, uncomplicated; Z79.85 Long-term (current) use of injectable non-insulin antidiabetic drugs
CPT/HCPCS: 99283

== ENCOUNTER 2025-01-17 16:42 | Emergency (ER) | payer MEDICAID, SELFPAY ==
[2025-01-17 16:45] VITALS: BP 145/100; PULSE 93; TEMP 36.9; O2SAT 98; BMI 46.0
--- NOTE | 2025-01-17 17:06 | ED.GENADUL1 ---
HPI HPI - General Adult General Chief complaint: Urogenital-Male Stated complaint: BLOOD DISCHARGE Time Seen by Provider: 01/17/25 16:52 Source: patient Mode of arrival: walk-in History of Present Illness HPI narrative: The patient is a 39 years old male with history of diabetes as well as history of coronary artery disease on Plavix. Patient presented to us after he noticed for the last a few hours blood in urine he did not have any burning with urination no frequency no abdominal pain at any time He denies any back or flank pain and he mentioned that a long time ago he had a kidney stone But right now he does not have any pain . The patient mentioned that the blood was at the end of the stream Related Data Home Medications ?Medication ?Instructions ?Recorded ?Confirmed aripiprazole 5 mg tablet 5 mg PO DAILY 04/10/23 01/17/25 aspirin 81 mg tablet,delayed 81 mg PO DAILY 04/10/23 01/17/25 release (Adult Low Dose Aspirin) clopidogrel 75 mg tablet 75 mg PO DAILY 04/10/23 01/17/25 dapagliflozin propanediol 10 mg 10 mg PO DAILY 04/10/23 01/17/25 tablet fluoxetine 20 mg capsule 20 mg PO DAILY 04/10/23 01/17/25 fluticasone propionate 50 2 spray intranasal DAILY PRN 04/10/23 01/17/25 mcg/actuation nasal congestion spray,suspension (Allergy Relief (fluticasone)) lisinopril 5 mg tablet 5 mg PO DAILY 04/24/23 01/17/25 atorvastatin 80 mg tablet 80 mg PO DAILY 01/17/25 01/17/25 cariprazine 1.5 mg capsule 1.5 mg PO QAM 01/17/25 01/17/25 (Vraylar) cetirizine 10 mg tablet 10 mg PO QAM 01/17/25 01/17/25 dulaglutide 3 mg/0.5 mL 3 mg subcut QWEEK 01/17/25 01/17/25 subcutaneous pen injector (Trulicity) insulin glargine 100 unit/mL (3 62 unit subcut QPM 01/17/25 01/17/25 mL) subcutaneous pen (Lantus Solostar U-100 Insulin) metoprolol tartrate 25 mg tablet 25 mg PO BID 01/17/25 01/17/25 Allergies Allergy/AdvReac Type Severity Reaction Status Date / Time bupropion (From Wellbutrin) Allergy Severe Agitated Verified 01/17/25 16:50 Review of Systems ROS Status of ROS 10 or more systems reviewed and unremarkable except as noted in history and below [facility] Medical History (Updated 01/17/25 @ 17:47 by Coni Garcia MD) COVID-19 ?U07.1 - COVID-19 (ICD-10) Seasonal allergic rhinitis ?J30.2 - Other seasonal allergic rhinitis (ICD-10) Hyperlipidemia ?E78.5 - Hyperlipidemia, unspecified (ICD-10) Hypertension ?I10 - Essential (primary) hypertension (ICD-10) Myocardial infarction ?I21.9 - Acute myocardial infarction, unspecified (ICD-10) CVA (cerebral vascular accident) ?I63.9 - Cerebral infarction, unspecified (ICD-10) Tongue lesion ?K14.8 - Other diseases of tongue (ICD-10) Surgical History (Updated 04/10/23 @ 08:21 by Clint Vargas) Status post biopsy of kidney ?Z98.890 - Other specified postprocedural states (ICD-10) H/O partial thyroidectomy ?E89.0 - Postprocedural hypothyroidism (ICD-10) H/O parathyroidectomy ?Z98.890 - Other specified postprocedural states (ICD-10) ?Z90.89 - Acquired absence of other organs (ICD-10) History of coronary artery bypass graft ?Z95.1 - Presence of aortocoronary bypass graft (ICD-10) Family History (Updated 04/10/23 @ 08:30 by Clint Vargas) Mother Family history of diabetes mellitus Social History Smoking status: Light tobacco smoker Little interest or pleasure in doing things: not at all Feeling down, depressed, or hopeless: not at all Exam Narrative Exam Narrative: Nurses notes and vital signs reviewed and patient is not hypoxic. General: Well-appearing and in no apparent distress. Skin: Warm, dry, no pallor noted. No rash. Head: Normocephalic, atraumatic. Neck: Supple, non-tender. y edema/swelling GI: Abdomen is soft, non-distended. Normal bowel sounds. No masses appreciated. No tenderness to palpation. No rebound, guarding, or rigidity noted. Genital exam showed that the patient does not have any pathology detected no bleeding actively from the penis and there is no tenderness no open wounds or any ecchymosis and the testicles are both are normal in size and not tender and at similar levels Neurological: A&O x4. No cranial nerve dysfunction observed. No truncal ataxia. Moves all extremities. Sensation intact. Psychiatric: Cooperative and interactive. Normal mood and affect. Constitutional Vital Signs, click to edit/add: Last Vital Signs Temp 98.5 F 01/17/25 16:45 Pulse 93 H 01/17/25 16:45 Resp 18 01/17/25 16:45 BP 145/100 H 01/17/25 16:45 Pulse Ox 98 01/17/25 16:45 O2 Del Method Room Air 01/17/25 16:45 Course Vital Signs Vital signs: Vital Signs Temperature 98.5 F 01/17/25 16:45 Pulse Rate 93 H 01/17/25 16:45 Respiratory Rate 18 01/17/25 16:45 Blood Pressure 145/100 H 01/17/25 16:45 Pulse Oximetry 98 01/17/25 16:45 Oxygen Delivery Method Room Air 01/17/25 16:45 Temperature 98.5 F 01/17/25 16:45 Pulse Rate 93 H 01/17/25 16:45 Respiratory Rate 18 01/17/25 16:45 Blood Pressure 145/100 H 01/17/25 16:45 Pulse Oximetry 98 01/17/25 16:45 Oxygen Delivery Method Room Air 01/17/25 16:45 Medical Decision Making MDM Narrative Medical decision making narrative: The patient urinalysis showed no acute pathology except for the hematuria and there is no signs of UTI The patient does take Plavix which put him at risk of bleeding but he definitely need to follow-up with urology for further evaluation of the hematuria No abdominal pain at the moment and the patient denies any pain in the last 24 hours but he was instructed about coming back in case of any pain fever or any other concern also he is to make sure that the bleeding will not get any worse in case of any worsening of the pain or any difficulty urination the patient to come back to the ER Patient also was tested for STI almost 2 weeks ago and he was negative and today he will tested today as well The patient to follow-up with the primary care within 2 to 3 days and to come back to the ER in case of any worsening of the current symptoms or any new symptoms or concerns Lab Data Labs: Lab Results 01/17/25 Range/Units 16:45 Urine Color Lt. yellow (YELLOW) Urine Clarity Clear (CLEAR) Urine pH 5.5 (5.0-9.0) Ur Specific [place] 1.025 (1.005-1.025) Urine Protein 100 A (NEG/TRACE) mg/dL Urine Glucose (UA) >=1000 A (NEGATIVE) mg/dL Urine Ketones Negative (NEGATIVE) mg/dL Urine Occult Blood Large A (NEGATIVE) Urine Nitrite Negative (NEGATIVE) Urine Bilirubin Negative (NEGATIVE) Urine Urobilinogen 0.2 (0.2-1.0) EU/dL Ur Leukocyte Esterase Negative (NEGATIVE) Urine RBC 20-50 A (0-2) #/HPF Urine WBC 0-2 A (NONE SEEN) #/HPF Ur Squamous Epith Cells Few A (NONE/RARE) #/LPF Urine Crystals None seen (None Seen) #/HPF Urine Bacteria Trace A (NONE SEEN) #/HPF Urine Casts None seen (NONE SEEN) #/LPF Urine Mucus None seen (NONE SEEN) Ur Culture Indicated? No Discharge Plan Discharge Chief Complaint: Urogenital-Male Clinical Impression: Hematuria Patient Disposition: Home, Self-Care Time of Disposition Decision: 17:46 Condition: Good Mode of Transportation: Private Vehicle Prescriptions / Home Meds: No Action lisinopril 5 mg tablet 5 mg PO DAILY atorvastatin 80 mg tablet 80 mg PO DAILY Vraylar 1.5 mg capsule 1.5 mg PO QAM cetirizine 10 mg tablet 10 mg PO QAM Trulicity 3 mg/0.5 mL pen injector 3 mg SUBCUT QWEEK insulin glargine [Lantus Solostar U-100 Insulin] 100 unit/mL (3 mL) insulin pen 62 unit SUBCUT QPM metoprolol tartrate 25 mg tablet 25 mg PO BID aripiprazole 5 mg tablet 5 mg PO DAILY aspirin [Adult Low Dose Aspirin] 81 mg tablet,delayed release (DR/EC) 81 mg PO DAILY clopidogrel 75 mg tablet 75 mg PO DAILY dapagliflozin propanediol 10 mg tablet 10 mg PO DAILY fluoxetine 20 mg capsule 20 mg PO DAILY fluticasone propionate [Allergy Relief (fluticasone)] 50 mcg/actuation spray,suspension 2 spray intranasal DAILY PRN (Reason: congestion) Rx Instructions: administer into each nostril Print Language: Upper Sorbian Instructions: Hematuria (ED) Referrals: Sirisha Garrison MD [Physician, Urology] - 1 week Physician,Non-Staff, [Physician] - 1 week Discharge Date/Time: 01/17/25 17:54
[2025-01-17 17:18] LABS: Glucose Urine UA >=1000 mg/dL (NEGATIVE)
--- NOTE | 2025-01-17 17:21 | PC.NURSE ---
urine collected, urine clear, pale yellow with slight pinkish in color.
--- OUTSIDE RECORDS SUMMARY | 2025-01-17 17:34 | XMS_ITS | Encounter Summary ---
Author Organization [facility] Address [facility] [id number] [address] 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 Name Role Phone Luis Felipe Buckner MEDICAL OFFICE TECHNOLOGY INSTRUCTOR-OFFSET LABEL REWINDER Primary Care Provider + Encounter Details DateTypeDepartmentCare Team (Latest Contact Info)Ytmljiiknms23/30/2025Refill [facility] Internal Medicine - Family Medicine [address] [place] [address] Princess Grier CMA Anxiety and depression Social History Tobacco UseTypesPacks/DayYears UsedDateSmoking Tobacco: FormerCigarettes0.314 Smokeless Tobacco: FormerAlcohol UseStandard Drinks/WeekCommentsNot Currently0 (1 standard drink = 0.6 oz pure alcohol)OccasionallySocial Connection and Isolation PanelAnswerDate RecordedIn a typical week, how many times do you talk on the phone with family, friends, or neighbors?Once a week01/26/2022How often do you get together with friends or relatives?Never01/26/2022How often do you attend sabianist or hinduism services?Never2Do you belong to any clubs or organizations such as sabianist groups, unions, fraternal or athletic groups, or school groups?No01/26/2022How often do you attend meetings of the clubs or organizations you belong to?Never01/26/2022re you , , , , never , or living with a partner?Living with gfgdczm7201/26/2022 AUDIT-CAnswerDate RecordedQ1: How often do you have a drink containing alcohol? Monthly or less01/26/2022Q2: How many drinks containing alcohol do you have on a typical day when you are drinking?1 or Q3: How often do you have six or more drinks on one occasion?Never01/26/2022verall Financial Resource Strain (CARDIA)AnswerDate RecordedHow hard is it for you to pay for the very basics like food, housing, medical care, and heating?Not very hard06/10/2024PHQ-2Answer Date RecordedTotal [id number] [place] [facility] - Occupational Stress QuestionnaireAnswerDate RecordedDo you feel stress - tense, restless, nervous, or anxious, or unable to sleep at night because yourmind is troubled all the time - these days?To some hybjag3801/26/2022Exercise Vital Sign AnswerDate RecordedOn average, how many days per week do you engage in moderate to strenuous exercise (like a brisk walk)?2 days01/26/2022n average, how many minutes do you engage in exercise at this level?30 min01/26/2022RAPARE - TransportationAnswerDate RecordedIn the past 12 months, has lack of transportation kept you from medical appointments or from getting medications?No 06/10/2024In the past 12 months, has lack of transportation kept you from meetings, work, or from getting things needed for daily living?No06/10/2024 Housing InstabilityAnswerDate RecordedAre you worried or concerned that in the next two months you may not have stable housing that you own, rent or stay in as a part of a household?No06/10/2024hildcareAnswerDate RecordedDo problems getting child welfare consultant make it difficult for you to work or study?No01/26/2022 EmploymentAnswerDate RecordedDo you need help finding a local career center and/or a training program?No01/26/2022Hunger ScreeningAnswerDate RecordedWithin the past 12 months we worried whether our food would run out before we got money to buy more.Never True12/30/2024Within the past 12 months the food we bought just didn't last and we didn't have money to get more.Never True12/30/2024 Purpose - LifeAnswerDate RecordedI have a purpose and direction in my life.Agree 01/26/2022EducationAnswerDate RecordedWhat is the highest level of school you have completed or the highest degree you have received?Associate degree: occupational, technical, or vocational crdrvzz5801/26/2022ex and Gender InformationValueDate RecordedSex Assigned at BirthNot on fileLegal SexMale 10/09/2014 12:04 PM EDTGender IdentityNot on fileSexual OrientationNot on file documented as of this encounter Plan of Treatment DateTypeDepartmentCare Team (Latest Contact Info)Yzlhusqihlu21/27/2026 4:00 PM EDTOffice Visit [facility] [address] [place] [address] Luis Felipe Buckner, MEDICAL OFFICE TECHNOLOGY INSTRUCTOR-OFFSET LABEL REWINDER [address] , [address] [address] documented as of this encounter Visit Diagnoses Diagnosis Anxiety and depression documented in this encounter Additional Health Concerns AssessmentNoted TimePHQ-9 Depression Total Score: 2:25 PM EDTA Body Mass Index follow-up plan has been documented for the [id number]/10/2024 3:31 PM EDTdocumented as of this encounter Care Teams Team MemberRelationshipSpecialtyStart DateEnd Date Luis Felipe Buckner, MEDICAL OFFICE TECHNOLOGY INSTRUCTOR-OFFSET LABEL REWINDER [address] [place] [address] PCP - GeneralInternal Sfrjmgeh64/27/25documented as of this encounter
--- OUTSIDE RECORDS SUMMARY | 2025-01-17 17:34 | XMS_ITS | Clinical Summary ---
Author Organization [facility] Address [id number] 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 15.8 mL ctive EYE ITCH RELIEF 0.025 % (0.035 %) ophthalmic solution INSTILL 1 DROP INTO BOTH EYES TWICE A DAY WZIVGTNF76/21/2022ctive aspirin 81 mg Take 1 tablet (81 mg total) by mouth in the morning.06/07/2022ctive clopidogreL (PLAVIX) 75 mg tablet Take 1 tablet (75 mg total) by mouth in the morning.06/07/2022ctive metoprolol tartrate (LOPRESSOR) 25 mg tablet Take 1 tablet (25 mg total) by mouth in the morning and 1 tablet (25 mg total) before bedtime.06/06/2022ctive blood sugar diagnostic (glucose blood) strip Indications:Uncontrolled type 2 diabetes mellitus with hyperglycemia ([facility]) Monitor blood sugars twice daily 60 strip ctive lancets (accu-chek soft touch) [facility] Indications:Uncontrolled type 2 diabetes mellitus with hyperglycemia ([facility]) Monitor blood sugars twice daily 100 each ctive Additional Information Patient not taking.Reported on 12/30/2024 blood-glucose meter (glucose monitoring kit) kit Indications:Uncontrolled type 2 diabetes mellitus with hyperglycemia ([facility]) Use as instructed 1 each 07/12/2022ctive alcohol swabs (ALCOHOL PREP PADS) pads, medicated Indications:Uncontrolled type 2 diabetes mellitus with hyperglycemia ([facility]) Apply 1 Pad topically in the morning and at bedtime. 100 each ctive lancets (TRUEPLUS LANCETS) 33 gauge [facility] 1 Lancet by miscellaneous route in the morning. 90 each ctive blood-glucose sensor (DEXCOM G7 SENSOR) device Indications:Uncontrolled type 2 diabetes mellitus with hyperglycemia ([facility])1 each by miscellaneous route every 10 days.05/10/2023ctive blood-glucose meter,continuous (DEXCOM G7 WATER PURIFIER) [facility] Indications:Uncontrolled type 2 diabetes mellitus with hyperglycemia ([facility])1 Device by miscellaneous route in the evening.05/10/2023ctive BD ULTRA-FINE MICRO PEN NEEDLE 32 gauge x 1/4 needle 01/18/2024ctive insulin glargine (LANTUS SOLOSTAR U-100 INSULIN) 100 unit/mL (3 mL) insulin pen Indications:Uncontrolled type 2 diabetes mellitus with hyperglycemia ([facility]) Inject 80 Units under the skin nightly. 15 mL 5Active dapagliflozin propanediol (FARXIGA) 10 mg tablet Indications:Type 2 diabetes mellitus with stage 3 chronic kidney disease and hypertension ([facility])take 1 tablet by mouth every morning 90 tablet 5Active cetirizine (ZyrTEC) 10 mg tablet Indications:Seasonal allergic rhinitis due to pollenTAKE 1 TABLET BY MOUTH IN THE MORNING 30 tablet 5Active dulaglutide (TRULICITY) 1.5 mg/0.5 mL pen injector Indications:Type 2 diabetes mellitus with microalbuminuria, without long-term current use of insulin ([facility])Inject 1.5 mg under the skin every 7 days. 2 mL 5Active Additional Information Patient taking differently: 3 mgsubcutaneous Every 7 days, Reported on 12/30/2024 atorvastatin (LIPITOR) 80 mg tablet Indications:Mixed hyperlipidemiaTAKE 1 TABLET BY MOUTH NIGHTLY 90 tablet 12/24/2024tive lisinopriL (PRINIVIL,ZESTRIL) 5 mg tablet Indications:Primary hypertensionTake 1 tablet (5 mg total) by mouth in the morning. 90 tablet 5Active loperamide (IMODIUM) 2 mg capsule Indications:Loose stoolsTake 1 capsule (2 mg total) by mouth 4 (four) times a day as needed for diarrhea. 30 capsule 5Active cariprazine (VRAYLAR) 1.5 mg capsule Indications:Moderate episode of recurrent major depressive disorder (CMS-HCC) Take 1 capsule (1.5 mg total) by mouth every morning. TAKE 1 CAPSULE BY MOUTH IN THE MORNING 30 capsule 5Active FLUoxetine (PROzac) 20 mg capsule Indications:Anxiety and depressionTake 1 capsule (20 mg total) by mouth in the morning. 90 capsule 5Active VRAYLAR 1.5 mg capsule Indications:Moderate episode of recurrent major depressive disorder (CMS-HCC) TAKE 1 CAPSULE BY MOUTH IN THE MORNING 30 capsule Discontinued(Reorder) lisinopriL (PRINIVIL,ZESTRIL) 5 mg tablet TAKE 1 TABLET BY MOUTH IN THE MORNING 90 tablet Discontinued(Reorder) FLUoxetine (PROzac) 20 mg capsule Indications:Anxiety and depressionTake 1 capsule (20 mg total) by mouth in the morning. 90 capsule /Discontinued(Reorder) loperamide (IMODIUM) 2 mg capsule Indications:Loose stoolsTake 1 capsule (2 mg total) by mouth 4 (four) times a day as needed for diarrhea. 30 capsule Discontinued(Reorder) atorvastatin (LIPITOR) 80 mg tablet Indications:Mixed hyperlipidemiaTake 1 tablet (80 mg total) by mouth nightly. 90 tablet /Discontinued Active Problems ProblemNoted DateDiagnosed DateType 2 diabetes mellitus with microalbuminuria, without long-term current use of qdkfupc1205/05/2023Tongue mgmctp6803/30/2023urrent moderate episode of major depressive qlsemzmu76/23/2024Hyperparathyroidism 11/18/2022Renal cyst06/21/2022 Overview (06/21/2022): 06/21/22: Probable renal cyst 1st detected 2021 on right on ultrasound. Suggested of this on MRI without contrast. Most recent renal ultrasound also suggests probable renal cyst. Definitive testing with MRI with without contrast will confirm. Post-procedural erectile bnozcyjmrkm44/18/2023 Overview (06/21/2022): 06/21/22: Erectile dysfunction after winter shunt. Could consider penile injection therapy or penileprosthesis. Acute kidney injury superimposed on CKD Overview (06/15/2022): Last Assessment & Plan: IAN (obstructive sleep apnea)/rimary hyperparathyroidism 05/31/2022 Overview (04/19/2023): S/p parathyroidectomy Mar 2023 at [facility] Multiple vessel coronary artery errmmdd71HHNC (hyperglycemic hyperosmolar nonketotic coma)Morbid gzwhswz0305/23/2022 06/15/2022NSTEMI (non-ST elevated myocardial infarction) Hypertensive qpmjps66ersistent gkykcsbbtcl53/04/2022 Overview (01/18/2022): ACR 1300, UPC 0.9 CKD (chronic kidney disease), stage III12/07/2021 Overview (10/20/2022): Suspected FSGS, baseline 1.8-1.9, UPC0.9, serologies negative 24-hour urine protein is gone up to 3.1 g in October 2022. 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 Kidney biopsy from [facility] 10/21/22, reviewed. 70 glomeruli assessed 13 were obsolescent. 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 Immunofluorescence negative, no inflammatory changes, no endocapillary or extra capillary proliferation. Pathologist feels the kidneys appears end-stage Acute heart hznziqo2211/24/2021cute kidney bzmoef9011/24/2021 Overview (11/24/2021): Secondary to ischemic ATN from sepsis, septic shock, NSAIDs, Bactrim, vancomycin and contrast. Baseline in 2079 was 0.8 peaked up to 2.1 at [facility] in August 2021. On discharge creatinine was down to 1.3. Urine sediment benign. Work-up for immune complex disease negative, paraprotein disease and vasculitis negative as well. Acute pulmonary edema2Cerebral mjimeabt64/21/2022Cerebral septic emboli 11/24/20216205Qbjwinzqlqatt53/21/2022 Overview (11/24/2021): With increased PTH but negative sestamibi scan PTH 141 calcium had gone up to 11.0, on discharge down to 8.6. Pericardial /21/2022hinovirus gmzilgypn87/21/2022epsis due to Streptococcus species without acute organ lostyxgsaet53/21/2022taphylococcus aureus oiilpifrg83/21/2022ilated gpayegrkdtdwsh52/26/2022 Overview (11/24/2021): Ejection fraction 30% compensated CHF Primary snkqgwgfeoea01/26/2022 Overview (11/24/2021): Blood pressures running in the 140-150 systolic range Tgostiycbo00/11/2022Acute respiratory failure with tsplnai03/26/2022Cardiac igfzkyney57/26/2022Priapism, oetpkqgwgik14/27/2016 Encounters DateTypeDepartmentCare ZnxeIyvriofslvw39/30/2025Refill [facility] [address] [place] [phone] Princess Grier CMA Anxiety and /29/2025Results [facility] [address] [place] [phone] Luis Felipe Buckner, EVALUATION SPECIALIST-[employer]DOWNS TOE FORMER Trichomonas by PCR, Chlamydia/Gonorrhoeae by PCR, Urine12/30/2024 2:15 PM EDT Office Visit [facility] [address] [place] [phone] Luis Felipe Buckner, EVALUATION SPECIALIST-STITCHDOWNS TOE FORMER Screen for STD (sexually transmitted disease) (Primary Dx); Type 2 diabetes mellitus with stage 3 chronic kidney disease and hypertension ([facility] Primary hypertension; Loose stools; Moderate episode of recurrent major depressive disorder ([facility]); Class 3 severe obesity due to excess calories with serious comorbidity and body mass index (BMI) of40.0 to 44.9 in adult ([facility])12/30/20240759Welbwd56/26/2025 Nteasf1512/24/2024Refill [facility] [address] [place] [phone] Jacob Cochran DO Mixed mxbnuntegiious58/11/2025Travelfrom Last 3 Months Family History Medical HistoryRelationNameCommentsDiabetesMotherMental illnessMother ParkinsonismMotherRelationNameStatusCommentsHalf BrotherAliveHalf SisterAlive MotherAlive Social History Tobacco UseTypesPacks/DayYears UsedDateSmoking Tobacco: FormerCigarettes0.314 Smokeless Tobacco: Former Tobacco Cessation:Counseling Given: Not Answered Alcohol UseStandard Drinks/WeekCommentsNot Currently0 (1 standard drink = 0.6 oz pure alcohol)OccasionallySocial Connection and Isolation PanelAnswerDate RecordedIn a typical week, how many times do you talk on the phone with family, friends, or neighbors?Once a week01/26/2022How often do you get together with friends or relatives?Never01/26/2022How often do you attend advent or restoration services?Never2Do you belong to any clubs or organizations such as advent groups, unions, fraternal or athletic groups, or school groups?No 01/26/2022How often do you attend meetings of the clubs or organizations you belong to?Never01/26/2022re you , , , , never , or living with a partner?Living with enauzjl4801/26/2022UDIT-CAnswerDate RecordedQ1: How often do you have a drink containing alcohol?Monthly or less 01/26/2022Q2: How many drinks containing alcohol do you have on a typical day when you are drinking?1 or Q3: How often do you have six or more drinks on one occasion?Never01/26/2022verall Financial Resource Strain (CARDIA) AnswerDate RecordedHow hard is it for you to pay for the very basics like food, housing, medical care, and heating?Not very hard06/10/2024PHQ-2AnswerDate RecordedTotal Quren292Finbrigham [facility] [place] of Occupational Health - Occupational Stress QuestionnaireAnswerDate RecordedDo you feel stress - tense, restless, nervous, or anxious, or unable to sleep at night because yourmind is troubled all the time - these days?To some wcjrly4201/26/2022Exercise Vital Sign AnswerDate RecordedOn average, how many [...] part of a household?No06/10/2024hildcareAnswerDate RecordedDo problems getting director maternal child make it difficult for you to work [...] have received?Associate degree: occupational, technical, or vocational llddtev1201/26/2022ex and Gender InformationValueDate RecordedSex Assigned at BirthNot on fileLegal SexMale 10/09/2014 12:04 PM EDTGender IdentityNot on fileSexual OrientationNot on file Last Filed Vital Signs Vital SignReadingTime TakenCommentsBlood Fhaoieac589/8210 2:25 PM EDT Umkbl2672 2:25 PM HZYQmhcnamyovl24.1 ??C (97 ??F)12/30/2024 2:25 PM EDT Respiratory Jvfx3829 2:25 PM EDTOxygen Vfbfrcbhyh51%12/30/2024 2:25 PM EDTInhaled Oxygen Concentration--Brpoqd061.6 kg (263 lb 9.6 oz)12/30/2024 2:25 PM BUZSkbrsu955.1 cm (5' 5 )12/30/2024 2:25 PM EDTBody Mass Index43.8712/30/2024 2:25 PM EDT Plan of Treatment DateTypeDepartmentCare Team (Latest Contact Info)Lliisdcdaww01/27/2026 4:00 PM EDTOffice Visit [facility] [address] [address] Luis Felipe Buckner, EVALUATION SPECIALIST-[employer]DOW[employer] TOE FORMER [address] [place], [place] [phone] Health MaintenanceDue DateLast DoneCommentsDiabetic Ophthalmology Exam1984 DTaP,Tdap and Td Vaccines (1 - Tdap)06/29/2003Influenza Rriezuv2511/04/2024 01/26/2024iabetic Foot Exam/, 09/12/2022dult BMI Follow Up PlanStatin Use: Efaevvjnodpnyf50Statin Use: Adsurzoy82/dult BMI Fgvyskwvr21/ Depression Kmmmduscz36Tobacco Yelmtjfol50 Medical Devices Not on file Procedures Procedure NamePriorityDate/TimeAssociated DiagnosisCommentsCHLAMYDIA/GONORRHOEAE BY PCR, XGFLLNtztrpr84/27/2025 2:56 PM EDT Screen for STD (sexually transmitted disease) TRICHOMONAS BY MSPYshssvp55/27/2025 2:56 PM EDT Screen for STD (sexually transmitted disease) CREATININE, OFBQYZsgieaw51/11/2025 11:24 AM EDT Type 2 diabetes mellitus with hyperglycemia ([facility]) Hyperlipidemia, unspecified group home (current) use of insulin ([facility]) CBC WITH AUTO FIUQXJFLDKMUAwkeouh28/11/2025 11:24 AM EDT Type 2 diabetes mellitus with hyperglycemia ([facility]) Hyperlipidemia, unspecified watermaster (current) use of insulin ([facility]) LIPID SSSHPVKLzpyusj83/11/2025 11:24 AM EDT Type 2 diabetes mellitus with hyperglycemia ([facility]) Hyperlipidemia, unspecified watermaster (current) use of insulin ([facility]) from Last 3 Months Results * Chlamydia/Gonorrhoeae by PCR, Urine (12/30/2024 2:56 PM EDT)ComponentValueRef RangeTest MethodAnalysis TimePerformed AtPathologist SignatureGONORRHOEAE PCR, BUbbpuehjSejkwtrz51/28/2025 11:44 AM [facility] Comment:Neisseria gonorrhoeae not detected by nucleic acid amplification. This does not exclude the possibility of infection because results are dependent on adequate specimen collection.CHLAMYDIA PCR, ENjwqodsgMwlkcrtv28/28/2025 11:44 AM [facility]Comment:Chlamydia trachomatis not detected by nucleic acid amplification. This does not exclude the possibility of infection because results are dependent on adequate specimen collection. Specimen (Source)Anatomical Location / LateralityCollection Method / Volume Collection TimeReceived TimeUrineUrine / Tkcpeaw0412/30/2024 2:56 PM EDT 12/30/2024 2:56 PM EDT Narrative Authorizing ProviderResult TypeResult StatusLuis Felipe Buckner APRN-CNPMICROBIOLOGY - GENERAL ORDERABLESFinal ResultPerforming OrganizationAddressCity/State/ZIP CodePhone Number [facility] [address] [place] [address], [place] [phone] * Trichomonas by PCR (12/30/2024 2:56 PM EDT)ComponentValueRef RangeTest Method Analysis TimePerformed AtPathologist SignatureTRICHOMONAS PCRNot DetectedNot Axsayrpf35/27/2025 10:26 PM [facility]ORYComment: Trichomonas vaginalis not detected. Assay methodology is nucleic acid amplification by real-time PCR for detection of Trichomonas vaginalis DNA performed on [employer] Software Instrument System. Specimen (Source)Anatomical Location / LateralityCollection Method / Volume Collection TimeReceived TimeUrineUrine / Heuyszf1812/30/2024 2:56 PM EDT1 2:56 PM EDT Narrative Authorizing ProviderResult TypeResult StatusKyanny Buckner EVALUATION SPECIALIST-CNPMICROBIOLOGY - GENERAL ORDERABLESFinal ResultPerforming OrganizationAddressCity/State/ZIP CodePhone Number [facility] [address] [place] [address], * CBC auto differential (11/14/2024 11:24 AM EDT)ComponentValueRef RangeTest MethodAnalysis TimePerformed AtPathologist SignatureWBC7.94 - 11 x10E9/L 11/14/2024 1:58 PM [facility]ORATORYRBC Count5.594.1 - 5.7 X10E12/L11/14/2024 1:58 PM [facility] Ojgovcbruc85.113 - 17 g/dL11/14/2024 1:58 PM [facility] UGOYOETHQXMaclheagaa12.839 - 50 %11/14/2024 1:58 PM [facility] CBHHKSLPFCRPK9667 - 100 fL11/14/2024 1:58 PM [facility] WEIWYGQHMICIB88.727 - 34 pg11/14/2024 1:58 PM [facility] IFHJGRADEEAIJH18.932 - 36 g/dL11/14/2024 1:58 PM [facility] OPWZDIVPLWMVX22.911.5 - 15 %11/14/2024 1:58 PM [facility] LABORATORYPlatelet Kjqcx560027 - 450 X10E9/L11/14/2024 1:58 PM EDT [facility]ORYMPV9.17 - 12 fL11/14/2024 1:58 PM [facility]ORYNeutrophils %57.3%11/14/2024 1:58 PM [facility]ORATORYLymphocytes %31.7%11/14/2024 1:58 PM [facility]ORYMonocytes %9.8%11/14/2024 1:58 PM [facility]ORYEosinophils %0.8%11/14/2024 1:58 PM [facility]ORATORYBasophils %0.4%11/14/2024 1:58 PM [facility] LABORATORYNeutrophils Absolute (A)4.61.5 - 6.6 10*3/uL 11/14/2024 1:58 PM [facility] LABORATORYLymphocytes Absolute 2.51.0 - 3.5 10*3/uL11/14/2024 1:58 PM [facility] Monocytes Absolute0.80.0 - 0.9 10*3/uL11/14/2024 1:58 PM [facility]ORATORYEosinophils Absolute0.10.0 - 0.4 10*3/uL11/14/2024 1:58 PM [facility]ORATORYBasophils Absolute0.00.0 - 0.2 10*3/uL 11/14/2024 1:58 PM [facility]ORATORYDifferential Type AUTOMATED CDYUKEHQBRVN11/11/2025 1:58 PM [facility] LABORATORYSpecimen (Source)Anatomical Location / LateralityCollection Method / VolumeCollection TimeReceived TimeBloodVenous blood / UnknownVenipuncture / Kkklzvg2411/14/2024 11:24 AM EDT11/14/2024 11:24 AM EDT Narrative Authorizing ProviderResult TypeResult StatusJohn Y JunLAB BLOOD ORDERABLESFinal ResultPerforming OrganizationAddressCity/State/ZIP CodePhone Number [facility] [address] [place] [address], * (ABNORMAL) Creatinine includes GFR, serum (11/14/2024 11:24 AM EDT)Component ValueRef RangeTest MethodAnalysis TimePerformed AtPathologist Signature CREATININE2.90(H)0.60 - 1.30 mg/dL11/14/2024 2:30 PM [facility]ATORYComment:METHOD TRACEABLE TO IDMS STANDARDEGFR Non-Race Fthwuhtjm40(L)>=60 ml/min/1.73sq.m011/14/2024 2:30 PM [facility]ATORYComment: Reported eGFR is based on the CKD-EPI 2020 equation that does not use a race coefficient. Specimen (Source)Anatomical Location / LateralityCollection Method / Volume Collection TimeReceived TimeBloodVenous blood / UnknownVenipuncture / Unknown 11/14/2024 11:24 AM EDT11/14/2024 11:24 AM EDT Narrative Authorizing ProviderResult TypeResult StatusJohn Y JunLAB BLOOD ORDERABLESFinal ResultPerforming OrganizationAddressCity/State/ZIP CodePhone Number [facility] [address] [place] [address], * (ABNORMAL) Lipid profile (11/14/2024 11:24 AM EDT)ComponentValueRef RangeTest MethodAnalysis TimePerformed AtPathologist BavzzsuasGQVHDDJFGTV534063 - 200 mg/dL11/14/2024 2:30 PM [facility] RYMEWLMCVRHGNZFSPHVOOR659 (H)27 - 150 mg/dL11/14/2024 2:30 PM [facility]ORATORYHDL FQRMCARGWMI27(L)>39 mg/dL11/14/2024 2:30 PM [facility]ATORYComment: HDL <40 mg/dL - High Risk HDL > or = 40mg/dL- Desirable HDL >60 mg/dL - Negative Risk LDL (CALC)72<130 mg/dL11/14/2024 2:30 PM [facility] Comment: LDL <100 mg/dL - Desirable LDL >160 mg/dL - High Risk CHOLESTEROL:HDL5.2(H)1.0 - 5.009 2:30 PM [facility] LABORATORYVERY LOW LEWTSPTQPZD36(H)0 - 30 mg/dL11/14/2024 2:30 PM [facility] LABORATORYSpecimen (Source)Anatomical Location / Laterality Collection Method / VolumeCollection TimeReceived TimeBloodVenous blood / UnknownVenipuncture / Izoegcc8311/14/2024 11:24 AM EDT11/14/2024 11:24 AM EDT Narrative Authorizing ProviderResult TypeResult StatusJohn Y JunLAB BLOOD ORDERABLESFinal ResultPerforming OrganizationAddressCity/State/ZIP CodePhone Number [facility] [address] [place] [address], [place] [phone] from Last 3 Months Insurance Care Teams Team MemberRelationshipSpecialtyStart DateEnd Date Luis Felipe Buckner, EVALUATION SPECIALIST-STITCHDOWNS TOE FORMER [address] [place] [address] PCP - GeneralInternal Wygjozwd28/27/25
--- OUTSIDE RECORDS SUMMARY | 2025-01-17 17:38 | XMS_ITS | CCD ---
Author Organization [facility] Care Team Providers Care Clerical Assigner Name Role Phone NO FAMILY, PHYSICIAN Primary Care Provider VANESA Hoover Emergency Provider [phone] Unavailable Primary Care Provider Unavailabl e Unavailable Primary Care Provider UnavailBasilio Santoro Attending Unavailable Basilio Sam Admitting Unavailable NO FAMILY, PHYSICIAN Primary Care Unavailable RAUL PARSONS Admitting Unavailable DR ZOE MONTERO Consulting Unavailabl e JUAN, DR BLANTON LISTED Primary Care Unavaila RAUL Andrews Attending Unavailable RAUL PARSONS Consulting Unavailable LION ZHU Consulting Unavailable Thiago MANAGER [employer]NA[employer] - DB[employer] DEVELOPER, Jose Alonso Primary Care Prov ider Thiago MANAGER [employer]NA[employer] - DB[employer] DEVELOPER, Jose Alonso Primary Care Prov ider ARIEL PURDY Attending Unavailable MAGUI DAVIS Consulting Unavailable JOSE KHANNA Primary Care Unavailable RAUL PARSONS Referring Unavailable ARIEL PURDY Admitting Unavailable SHARDA SOLITARIO Consulting Unavailable ARIEL PURDY Consulting Unavailable MAGUI DAVIS Referring Unavailable JOSE KHANNA Primary Care Unavailable JOSE KHANNA Primary Care Unavailable MAGGIE, BALHINDER S Referring Unavailable KATE MATT Attending Unavailable ELIANA MERINO Referring Unavailable MAGGIE, BALHINDER S Referring Unavailable JOSE KHANNA Primary Care Unavailable MAGGIE, BALHINDER S Referring Unavailable JOSE KHANNA Primary Care Unavailable JOSE KHANNA Primary Care Unavailable MAGGIE, BALHINDER S Referring Unavailable JOSE KHANNA Primary Care Unavailable MAGGIE, BALHINDER S Referring Unavailable MAGGIE, BALHINDER S Referring Unavailable JOSE KHANNA Primary Care Unavailable Khanna MANAGER MANA[employer]ED [employer]-DB[employer] DEVELOPER, Jose J Primary Care Provid er PRATEEK ESQUIVEL Referring Unavailable KHANNA, JOSE J Primary Care Unavailable KHANNA, JOSE J Primary Care Unavailable ROSLYN BLANCAS Attending Unavailable KHANNA, JOSE J Referring Unavailable KHANNA, JOSE J Primary Care Unavailable Khanna MANAGER MANA[employer]ED [employer]-JOSE, Jose J Primary Care Provid er Unavailable Primary Care Provider Unavailabl e Unavailable Primary Care Provider Unavailabl e KHANNA, JOSE J Referring Unavailable KHANNA, JOSE J Primary Care Unavailable JACOB UGARTE Referring Unavailable KHANNA, JOSE Gavin Primary Care Unavailable JACOB UGARTE Referring Unavailable JACOB UGARTE. Attending Unavailable JACOB UGARTE. Attending Unavailable Sheng Mejias Primary Care Provider JOSE KHANNA Attending Unavailable KHANNA, JOSE J Referring Unavailable KHANNA, JOSE J Primary Care Unavailable JOSE KHANNA J Attending Unavailable KHANNA JOSE J Referring Unavailable KHANNA, JOSE J Primary Care Unavailable KHANNANEETUJOSE J Attending Unavailable KHANNA JOSE J Referring Unavailable KHANNA, JOSE J Primary Care Unavailable SHENG BUCKNER Attending Unavailable SHENG BUCKNER Primary Care Unavailable Allergies Allergy ClassificationReported Allergen(s)Allergy TypeDate of OnsetReaction(s) Facility (3 sources)Melon; Translations: [melon]Allergy to qtargbcjy08-82-5570Twjwpekt of [facility] [place] ([facility])tomato allergenic extract; Translations: [tomato]Drug Allergy 98-09-3927Kppvzuop of [facility]ong[facility]at[facility] [place] ([facility] sources)FOODPropensity to adverse reactions to chbf18-53-5344BBB [facility] (20 sources)buPROPion; Translations: [BUPROPION HCL]Drug Qvlgdzf54-83-6935 [facility] Work Phone: (20 sources)Food Allergy Formula; Translations: [FOOD ALLERGY FORMULA]Propensity to adverse reactions to cllf78-37-0342[facility] Medications Current Medications MedicationDrug Class(es)DatesSig (Normalized)Sig (Original)acetaminophen 325 mg / oxyCODONE hydrochloride 5 mg oral tablet (2 sources)Opioid AgonistStart: 06-06-2022 End: 93-04-6659Vcrmd: 02-02-2016 End: 75-90-8120303 ml albumin human, retirement 50 mg/ml injection (2 sources)Human Serum AlbuminStart: 49-92-097404 g, IntraVENous, at 500 mL/hr, Administer over 60 Minutes, PRN, Other, PAD below goal and Low CI and/or Low BP and /or Low urine output per hemodynamic goals, Starting on Kathy 06/02/22 at 1824 Up to a max of 2000 mL. Notify surgeon for further orders if max volume infused. Post-opStart: 62-78-966265 g, IntraVENous, PRN, Starting on Kathy 06/02/22 at 1824, Until Discontinued, Administer over 60 Minutes, at 100 mL/hr, Other, Low CI and/or Low BP and /or Low urine output per hemodynamic goals. In the event the 5% 25 gram 500 mL bottles of albumin are unavailable - please dilute this bottle in 400mL's of normal saline. Do not give greater than 4 bottles total after surgery. Contact CTS team if patient does not meet hemodynamic goals. Post-op ARIPiprazole 5 mg oral tablet (15 sources)Atypical AntipsychoticStart: 09-12-2022 End: 28-19-5359vjsp 1 tablet by mouth in the morningARIPiprazole (ABILIFY) 5 mg tablet Indications: Mixed anxiety and depressive disorder Take 1 tablet(5 mg total) by mouth in the morning. 90 tablet 1 03/08/2023 Activeaspirin 81 mg delayed release oral tablet (20 sources)Platelet Aggregation Inhibitor, Nonsteroidal Anti-inflammatory Drug Start: 07-92-7212yfzq 1 tablet by mouth in the morningaspirin 81 mg Take 1 tablet (81 mg total) by mouth in the morning. 06/07/2022 ActiveStart: 05-24-2022 End: 68-01-9090xvps 1 dose by mouth once81 mg, Oral, ONCE, 1 dose, On Kathy 06/02/22 at 2115atorvastatin 80 mg oral tablet (20 sources)HMG-CoA Reductase InhibitorStart: 01-01-2024 End: 41-43-4936gegb 1 tablet by mouth once dailyatorvastatin (LIPITOR) 80 mg tablet Indications: Mixed hyperlipidemia TAKE 1 TABLET BY MOUTH NIGHTLY 90 tablet 12/24/2024 ActiveStart: 12-19-2022 End: 27-19-4006mnfq 1 tablet by mouth once dailyatorvastatin (LIPITOR) 80 mg tablet Indications: Mixed hyperlipidemia Take 1 tablet (80 mg total) by mouth nightly. 90 tablet 2 11/23/2023 ActiveStart: 02-21-8893esxa 1 tablet by mouth once dailyatorvastatin (LIPITOR) 20 MG tablet Take 1 tablet by mouth nightly 30 tablet 3 06/30/2022 ActiveStart: 30-81-6569Zhizk: 30-94-6605lirr 20 mg by mouth once daily20 mg, Oral, NIGHTLY, First dose on Mon06/03/22 at 2100, Until Discontinued Please hold for elevated liver function enzymes Post-opStart: 05-23-2022 End: 80-57-1047kyau 80 mg by mouth once daily80 mg, Oral, NIGHTLY, First dose on Mon05/23/22 at 2100, Until Discontinuedblood-glucose meter (glucose monitoring kit) kit (20 sources)Start: 07-66-5864yzuak-glucose meter (glucose monitoring kit) kit Indications: Uncontrolled type 2 diabetes mellituswith hyperglycemia (CMS-HCC) Use as instructed 1 each 07/12/2022 ActiveStart: 04-61-7014kjuxy-glucose meter (glucose monitoring kit) kit Indications: Uncontrolled type 2 diabetes mellitus with hyperglycemia (CMS-HCC) Use as instructed 1 each 0 07/12/2022 Activeblood- glucose meter,continuous (DEXCOM G7 [employer]) misc (20 sources)Start: 29-69-9543ptedl-glucose meter,continuous (DEXCOM G7 [employer]CH[employer]IC) misc Indications: Uncontrolled type 2 diabetes mellitus with hyperglycemia (CMS- HCC) 1 Device by miscellaneous route in the evening. 05/10/2023 ActiveStart: 53-50-6268deixw-glucose meter,continuous (DEXCOM G7 [employer]) misc Indications: Uncontrolled type 2 diabetes mellitus with hyperglycemia (CMS-HCC) 1 Device by miscellaneous route in the evening. 0 05/10/2023 Activeblood-glucose sensor (DEXCOM G7 SENSOR) device (20 sources)Start: 57-64-3997xjhkx-glucose sensor (DEXCOM G7 SENSOR) device Indications: Uncontrolled type 2 diabetes mellitus with hyperglycemia (CMS-HCC) 1 each by miscellaneous route every 10 days. 05/10/2023 ActiveStart: 05-10-2023 blood-glucose sensor (DEXCOM G7 SENSOR) device Indications: Uncontrolled type 2 diabetes mellitus with hyperglycemia (CMS-HCC) 1 each by miscellaneous route every 10 days. 0 05/10/2023 Activecalcium carbonate 500 mg chewable tablet (5 sources)Start: 04-11-2023 End: 28-46-2188bwcectq carbonate (ANTACID, CALCIUM CARBONATE,) 200 mg elemental (500 mg) chewable tablet Chew 5 tablets (1,000 mg total) and swallow. 0 04/11/2023 05/11/2023 ActiveStart: 05-28-2022 End: 90-09-1967xqmq 500 mg by mouth three times daily as needed for gastroesophageal reflux lwhisoz056 mg, Oral, 3 TIMES DAILY PRN, Starting on 05/28/22 at 1517, Until Kathy 06/02/22 at 1824, Heartburncalcium carbonate 1250 mg / cholecalciferol 200 unt oral tablet (12 sources)Vitamin DStart: 05-76-7391gtbg 2 tablets by mouth in the morning, then take 2 tablets by mouth once in the evening, then take2 tablets by mouth at bedtimeCalcium Carb-Cholecalciferol (Oyster Shell Calcium w/D) 500-5 MG-MCG tablet Take 2 tablets by mouthin the morning and 2 tablets in the evening and 2 tablets before bedtime. 02/23/2023 ActiveStart: 02-23-2023 End: 14-42-0233nsni 2 tablets by mouth oncecalcium carbonate-vitamin D3 (OSCAL 500 + D) 500 mg(1,250mg) -200 units per tablet Take 2 tablets by mouth. 02/23/2023 11/23/2023 Discontinued (Therapy completed)Start: 09-04-2021 End: 03-49-5094eect 1 tablet by mouth once daily1 tablet, Oral, DAILY, First dose on 09/04/21 at 1030, Until Discontinued Per og .cariprazine 1.5 mg oral capsule (20 sources)Atypical AntipsychoticStart: 05-10-2023 End: 21-79-9706xjxl 1 capsule by mouth once daily in the morningcariprazine (VRAYLAR) 1.5 mg capsule Indications: Moderate episode of recurrent major depressive disorder (CMS-HCC) Take 1 capsule (1.5 mg total) by mouth every morning. TAKE 1 CAPSULE BY MOUTH IN THE MORNING 30 capsule 5 12/30/2024 Active Start: 12-16-2022 End: 91-04-4108iyva 1 capsule by mouth in the morningcariprazine (VRAYLAR) 1.5 mg capsule Indications: Anxiety and depression Take 1 capsule (1.5 mg total) by mouth in the morning. 30 capsule 3 12/16/2022 03/08/2023 Discontinued (Therapy completed)carvedilol 25 mg oral tablet (20 sources)alpha-Adrenergic Ubaldo, beta-Adrenergic BlockerStart: 09-28-2021 End: 41-66-8378tuck 1 tablet by mouth in the morningcarvedilol (Coreg) 25 MG tablet Take 25 mg by mouth in the morning and 25 mg in the evening. Take with meals. 05/10/2022 ActiveStart: 09-09-2021 End: 64-29-0115mwsp 1 tablet by mouth twice dailycarvedilol (COREG) 12.5 MG tablet Take 1 tablet by mouth 2 times daily 60 tablet 3 09/12/2021 ActiveStart: 09-08-2021 End: 68-95-7401qvzc 25 mg by mouth twice daily at fdmqcnlu42 mg, Oral, 2 TIMES DAILY, First dose (after last modification) on Mon09/08/21 at 1000, Until Discon tinued Administer with food to minimize the risk of orthostatic hypotension Start: 09-07-2021 End: 79-18-4880quee 12.5 mg by mouth twice daily at bcupncrx14.5 mg, Oral, 2 TIMES DAILY, First dose (after last modification) on Mon09/07/21 at 2100, Until Discontinued Administer with food to minimize the risk of orthostatic hypotensionStart: 08-30-2021 End: 62-15-2233myci 6.25 mg by mouth twice daily at mealtime6.25 mg, Oral, 2 TIMES DAILY, First dose (after last modification) on Mon09/07/21 at 0715, Until Discontinued Administer with food to minimize the risk of orthostatic hypotensioncefTRIAXone (ROCEPHIN) infusion (15 sources)Start: 09-13-2021 End: 06-64-1298ncnn 2000 mg intravenously every twenty-four hourscefTRIAXone (ROCEPHIN) infusion Infuse 2,000 mg intravenously every 24 hours for 16 days Compound per protocol 32 g 0 09/13/2021 09/29/2021 Activecephalexin 500 mg oral capsule (2 sources)Cephalosporin AntibacterialStart: 09-20-2023 End: 53-01-9325uxco 1 capsule by mouth in the morning, then take 1 capsule by mouth at bedtimeCEPHalexin (KEFLEX) 500 mg capsule Indications: Folliculitis Take 1 capsule (500 mg total) by mouthin the morning and 1 capsule (500 mg total) before bedtime. Do all this for 10 days. 20 capsule 09/20/2023 09/30/2023 ActiveStart: 02-02-2016 End: 78-14-7440hwknebrrbz hydrochloride 10 mg oral tablet (20 sources)Histamine-1 Receptor AntagonistStart: 07-12-2022 End: 87-65-1277bqhm 1 tablet by mouth in the morningcetirizine (ZyrTEC) 10 mg tablet Indications: Seasonal allergic rhinitis due to pollen TAKE 1 TABLET BY MOUTH IN THE MORNING 30 tablet 6 06/17/2024 Activecetirizine (ZyrTEC) 10 MG chewable tablet Chew Daily Activecholecalciferol 0.125 mg oral capsule (8 sources)Vitamin DStart: 76-42-0365pgcb 1 capsule by mouth in the morningRA Vitamin D-3 125 MCG (5000 UT) capsule Take 1 capsule by mouth in the morning. 06/15/2022 ActiveCholecalciferol (VITAMIN D3) 125 MCG (5000 UT) TABS Take 1 tablet by mouth 0 Activeclopidogrel 75 mg oral tablet (20 sources)P2Y12 Platelet InhibitorStart: 17-82-0894cknu 1 tablet by mouth in the morningclopidogreL (PLAVIX) 75 mg tablet Take 1 tablet (75 mg total) by mouth in the morning. 06/07/2022 Activedapagliflozin 10 mg oral tablet (20 sources)Sodium-Glucose Cotransporter 2 InhibitorStart: 12-16-2022 End: 53-66-3040qqomzckwnaamh propanediol (FARXIGA) 10 mg tablet Indications: Type 2 diabetes mellitus with stage 3chronic kidney disease and hypertension ([facility]) take 1 tablet by mouth every morning 90 tablet 1 06/10/2024 Active0.5 ml dulaglutide 3 mg/ml auto-injector (17 sources)GLP-1 Receptor AgonistStart: 03-65-1231oklvhcqeirl (TRULICITY) 1.5 mg/0.5 mL pen injector Indications: Type 2 diabetes mellitus with microa lbuminuria, without long-term current use of insulin ([facility]) Inject 1.5 mg under the skin every 7days. 2 mL 4 07/10/2024 ActiveStart: 06-10-2024 End: 46-47-1049zcbwilcpfir (TRULICITY) 0.75 mg/0.5 mL pen injector Indications: Uncontrolled type 2 diabetes mellitus with hyperglycemia ([facility]) Inject 0.5 mL (0.75 mg total) under the skin every 7 days. 2 mL 06/10/2024 07/10/2024 Discontinued (Therapy completed)Start: 03-08-2023 End: 68-28-7883mjhtwcjslkk (TRULICITY) 1.5 mg/0.5 mL pen injector Indications: Type 2 diabetes mellitus with microalbuminuria, without long-term current use of insulin ([facility]) Inject 1.5 mg under the skin every 7days. 2 mL 3 03/08/2023 04/19/2023 Discontinued (Therapy completed)Start: 12-16-2022 End: 14-49-2290iyucyhlekfh (TRULICITY) 0.75 mg/0.5 mL pen injector Indications: Type 2 diabetes mellitus with microalbuminuria, without long-term current use of insulin ([facility]) , Dilated cardiomyopathy ([facility]) Inject 0.5 mL (0.75 mg total) under the skin every 7 days. 2 mL 3 12/16/2022 03/08/2023 Discontinued inject 1.5 mg by subcutaneous injection every weekdulaglutide (Trulicity) 1.5 MG/0.5ML solution pen-injector Inject 1.5 mg under the skin 1 (one) time per week ActiveFLUoxetine 20 mg oral capsule (20 sources)Serotonin Reuptake InhibitorStart: 30-61-5371mvvh 1 capsule by mouth in the morningFLUoxetine (PROzac) 20 mg capsule Indications: Anxiety and depression Take 1 capsule (20 mg total) by mouth in the morning. 90 capsule 1 01/03/2025 ActiveStart: 12-16-2022 End: 96-77-3096gqen 1 capsule by mouth in the morningFLUoxetine (PROzac) 20 mg capsule Indications: Anxiety and depression Take 1 capsule (20 mg total) by mouth in the morning. 90 capsule 1 06/10/2024 01/02/2025 Discontinued (Reorder) Start: 05-23-2022 End: 90-34-8485lnkh 10 mg by mouth once daily10 mg, Oral, DAILY, First dose on Mon05/23/22 at 1230, Until Discontinuedtake 2 tablets by mouth once daily FLUoxetine (PROZAC) 10 MG tablet Take 2 tablets by mouth daily 0 Activetake 1 tablet by mouth once dailyFLUoxetine (PROZAC) 10 MG tablet Take 1 tablet by mouth daily 0 Geirvd1453 ml glucose 100 mg/ml injection (3 sources)Start: 88-67-7740ffbl 1 mL intravenously every hourIntraVENous, at 100 mL/hr, CONTINUOUS PRN, if blood glucose remains LESS THAN 70 mg/dL after 2 dextrose 10% intravenous boluses or administration of glucagon, Starting on Mon06/02/22 at 1824 If bloodglucose fails to stabilize after 2 dextrose 10% intravenous boluses or glucagon administration, start dextrose 10% infusion at 100 mL/hour and repeat blood glucose at 30 and 60 minutes. If blood glucose is GREATER THAN 70 mg/dL after 60 minutes, discontinue dextrose 10% infusion. Post-opStart: 44-45-552378 g (4 tablet), Oral, PRN, Starting on Mon06/02/22 at 1824, Until Discontinued, Low blood sugar Ifblood glucose is LESS THAN 70 mg/dL and patient is alert and tolerating oral. Give 4 tablets (16g) Repeat blood glucose in 15 minutes. If blood glucose is LESS THAN 70 mg/dL, repeat treatment and recheck blood glucose in 15 minutes x 2. If blood glucose remains LESS THAN 70 mg/dL,notify provider. Post-opStart: 09-07-2021 End: 59-68-6870HymipTTBbbi, at 50 mL/hr, CONTINUOUS, Starting on Mon09/07/21 at 80544 ml insulin detemir 100 unt/ml pen injector (20 sources)Insulin AnalogStart: 04-34-8554vfbelqw detemir U-100 (LEVEMIR FLEXPEN) 100 unit/mL (3 mL) insulin pen Indications: Type 2 diabetesmellitus with microalbuminuria, without long-term current use of insulin ([facility]) Inject 35 Units under the skin nightly. 15 mL 1 01/16/2024 ActiveStart: 07-18-2023 End: 62-94-8034fxynrdo detemir U-100 (LEVEMIR FLEXPEN) 100 unit/mL (3 mL) insulin pen Indications: Type 2 diabetesmellitus with microalbuminuria, without long-term current use of insulin ([facility]) Inject 20 Units under the skin nightly. 15 mL 1 11/23/2023 ActiveStart: 05-05-2023 End: 74-95-2180fwtjrw 10 [IU] by subcutaneous injection once dailyinsulin detemir U-100 (LEVEMIR FLEXPEN) 100 unit/mL (3 mL) insulin pen Inject 10 Units under the skin nightly. 15 mL 1 05/05/2023 07/18/2023 Discontinued (Reorder)3 ml insulin glargine 100 unt/ml pen injector (20 sources)Insulin AnalogStart: 70-01-7310vukbtao glargine (LANTUS SOLOSTAR U- 100 INSULIN) 100 unit/mL (3 mL) insulin pen Indications: Uncontrolled type 2 diabetes mellitus with hyperglycemia ([facility]) Inject 80 Units under the skin nightly.15 mL 6 06/10/2024 ActiveStart: 04-03-2024 End: 34-39-2225wjmdmug glargine (LANTUS SOLOSTAR U-100 INSULIN) 100 unit/mL (3 mL) insulin pen Indications: Type 2diabetes mellitus with microalbuminuria, without long-term current use of insulin ([facility]) Inject 70 Units under the skin nightly. 15 mL 6 04/03/2024 06/10/2024 Discontinued (Reorder)Start: 02-21-2024 End: 25-92-8396wkfrkbm glargine (LANTUS SOLOSTAR U-100 INSULIN) 100 unit/mL (3 mL) insulin pen Indications: Type 2diabetes mellitus with microalbuminuria, without long-term current use of insulin ([facility]) Inject 35 Units under the skin nightly. 15 mL 12 02/21/2024 04/03/2024 Discontinued (Reorder)Start: Units (rounded from 19.035 Units = 0.15 Units/kg 126.9 kg), SubCUTAneous, NIGHTLY, First dose onFri 06/03/22 at 2100, Until Discontinued Hold if BG is less than 160. If patient is NOT diabetic discontinue order. If patient takes Lantus at home - notify CTS team. Post-opStart: 06-01-2022 End: 91-66-8675lczfzf 1 dose by subcutaneous injection once10 Units, SubCUTAneous, ONCE, 1 dose, On Mon06/01/22 at 1315Start: 05-30-2022 End: 20-13-5699cegqcd 50 [IU] by subcutaneous injection twice daily50 Units, SubCUTAneous, 2 times daily, First dose (after last modification) on 05/30/22 at 2100,Until DiscontinuedStart: 05-29-2022 End: 73-04-8711gpxvat 45 [IU] by subcutaneous injection twice daily45 Units, SubCUTAneous, 2 times daily, First dose (after last modification) on 05/29/22 at 2100,Until DiscontinuedStart: 05-28-2022 End: 22-92-4670wblkmf 40 [IU] by subcutaneous injection twice daily40 Units, SubCUTAneous, 2 times daily, First dose (after last modification) on 05/28/22 at 2100,Until DiscontinuedStart: 05-24-2022 End: 96-86-0525miqcip 30 [IU] by subcutaneous injection twice daily30 Units, SubCUTAneous, 2 times daily, First dose on 05/24/22 at 1130, Until DiscontinuedStart: 05-23-2022 End: 29-53-085342 Units (rounded from 25.4 Units = 0.2 Units/kg 127 kg), SubCUTAneous, NIGHTLY, First dose (after last modification) on Mon05/23/22 at 1645, Until Discontinuedisopropyl alcohol 0.7 ml/ml medicated pad (20 sources)Start: 35-84-9808vzkhxku swabs (ALCOHOL PREP PADS) pads, medicated Indications: Uncontrolled type 2 diabetes mellitus with hyperglycemia ([facility]) Apply 1 Pad topically in the morning and at bedtime. 100 each 6 07/12/2022 Activeketotifen 0.25 mg/ml ophthalmic solution (20 sources)Histamine-1 Receptor InhibitorStart: 65-77-2550urjp 1 drop(s) into the eye(s) twice dailyEYE ITCH RELIEF 0.025 % (0.035 %) ophthalmic solution INSTILL 1 DROP INTO BOTH EYES TWICE A DAY DIRECTED 11/24/2021 Active lisinopril 5 mg oral tablet (20 sources)Angiotensin Converting Enzyme InhibitorStart: 01-10-2023 End: 52-09-9711clxl 1 tablet by mouth in the morninglisinopriL (PRINIVIL,ZESTRIL) 5 mg tablet Indications: Primary hypertension Take 1 tablet (5 mg total) by mouth in the morning. 90 tablet 1 12/30/2024 ActiveStart: 12-06-2022 End: 92-13-9608szvc 1 tablet by mouth in the morninglisinopril 2.5 MG tablet Take 2.5 mg by mouth in the morning. 12/06/2022 Activetake 1 tablet by mouth once dailylisinopril (PRINIVIL;ZESTRIL) 5 MG tablet Take 1 tablet by mouth daily 0 Activeloperamide hydrochloride 2 mg oral capsule (8 sources)Opioid AgonistStart: 08-12-2024 End: 06-30-5909izhs 1 capsule by mouth four times daily as needed for diarrhea loperamide (IMODIUM) 2 mg capsule Indications: Loose stools Take 1 capsule (2 mg total) by mouth 4 (four) times a day as needed for diarrhea. 30 capsule 12/30/2024 ActiveStart: 08-09-2024 End: 03-64-8090szxo 1 tablet by mouth four times daily as needed for diarrhea loperamide (IMODIUM A-D) 2 mg tablet Indications: Loose stools Take 1 tablet (2 mg total) by mouth 4 (four) times a day as needed for diarrhea. 30 tablet 08/09/2024 08/12/2024 Discontinued (Therapy completed)24 hr loratadine 10 mg / pseudoephedrine sulfate 240 mg extended release oral tablet (18 sources)alpha-Adrenergic AgonistStart: 56-70-8378crwq 1 tablet by mouth once daily at bedtime, then take 1 tablet by mouth every twenty-four hours Loratadine-Pseudoephedrine (Loratadine-D) 10-240 mg Tablet Extended Release 24 Hr Active 1 TAB PO Daily at bedtime August 28, 2021 7:13pmtake 10-240 mg by mouth onceloratadine-pseudoephedrine (CLARITIN-D 24 HOUR) 10-240 MG per extended release tablet Take 1 tabletby mouth daily 0 Hdbzhh38 ml magnesium sulfate 40 mg/ml injection (1 source)Start: ,000 mg, IntraVENous, at 25 mL/hr, Administer over [...] metoprolol tartrate 25 mg oral tablet (20 sources)beta-Adrenergic BlockerStart: 55-00-0000hhfp 1 tablet by mouth in the morning, then take 1 tablet by mouth at bedtimemetoprolol tartrate (LOPRESSOR) 25 mg tablet Take 1 tablet (25 mg total) by mouth in the morning and 1 tablet (25 mg total) before bedtime. 06/06/2022 ActiveStart: 06-02-2022 End: .5 mg, Oral, 2 TIMES DAILY, First dose on Mon06/02/22 at 2100, Until Discontinued Hold for pulse less than 60, SBP less than 100, if patient on vasopressors, or if patient has a temporary pacemakerPost-opStart: 09-06-2021 End: mg, IntraVENous, ONCE, 1 dose, On 09/06/21 at 1645Start: 44-68-4598aeys 50 mg by mouth once dailyMetoprolol Succinate Active 50 MG PO Daily August 28, 2021 7:13pmtake 1 tablet by mouth every twenty-four hours in the morningmetoprolol succinate XL (Toprol-XL) 25 MG 24 hr tablet Take 25 mg by mouth in the morning. Do not crush or chew.. Activemupirocin 0.02 mg/mg topical ointment (3 sources)RNA Synthetase Inhibitor AntibacterialStart: 06-02-2022 End: 17-48-4676wabo 1 dose nasal route twice dailyEach Nostril, 2 TIMES DAILY, First dose on Mon06/02/22 at 2100, For 10 doses, Post-opStart: 05-30-2022 End: 01-46-8537ieym 1 dose nasal route twice dailyEach Nostril, 2 TIMES DAILY, First dose on Mon05/31/22 at 2345, For 10 dosespantoprazole 40 mg delayed release oral tablet (3 sources)Proton Pump InhibitorStart: 05-26-2022 End: 28-66-6470mujduajkpwic glycol 3350 04356 mg powder for oral solution (4 sources)Osmotic LaxativeStart: 06-02-2022 End: 15-83-3020wjpd 17 g by mouth once daily as needed for constipation polyethylene glycol (GLYCOLAX) 17 g packet Take 17 g by mouth daily as needed for Constipation 527 g 0 06/06/2022 07/06/2022 ActiveStart: g, Oral, DAILY PRN, Starting on Mon08/29/21 at 0640, Until Discontinued, Constipation First linetherapy for hqgbektohici81 ml potassium chloride 0.4 meq/ml injection (2 sources)Start: mEq, IntraVENous, PRN, Starting on Mon06/02/22 at 1824, Until [...] minutes post-infusion and follow protocol as indicated. Post-opStart: 09-08-2021 End: mEq, Oral, ONCE, 1 dose, On 09/08/21 at 0830 Do not crush, chew, or suck on tablet. Tablet mayalso be broken in half and each half swallowed separately.100 ml propofol 10 mg/ml injection (4 sources)General AnestheticStart: mcg/kg/min 126.9 kg (7.614 mL/hr, rounded to [...] 50 mcg/kg/min Contact physician if max dose doesnot achieve desired response If RASS 1 point below goal - decrease dose by 5mcg/kg/min no faster than every 5 min If RASS 2 points below goal- decrease d ose by 10mcg/kg/min no faster than every 5 [...] change may be adjusted by one-half of theprevious rate change If patient fails sedation interruption, resume propofol titration at 50% of previous rate Do not administer through the same I.V. catheter with blood or plasma.Tubing and any unused portions of propofol vials should be discarded after 12 hours. Post-opStart: 09-03-2021 End: mg, IntraVENous, ONCE, 1 dose, On Mon09/03/21 at 0700 Titrate Infusion? No Infusion Dose: 20 mcg/kg/min If Titrate Infusion? is No : Disregard instructions below. If Titrate infusion? is Yes : Titrate in increments of 5 mcg/kg/min no more frequently than every 5 minutes to goal of therapy. If after titration rate change patient exhibits adverse hemodynamicresponse, next titration rate change may be adjusted by one-half of the previous rate change. If patient fails sedation interruption, resume propofol infusion at 50% of previous rate. Do not administer through the same I.V. catheter with blood or plasma. Tubing and any unused portions of propofol vials should be discarded after 12 hours.Start: 08-29-2021 End: -50 mcg/kg/min 111.9 kg (3.357-33.57 mL/hr, rounded to 3.4-33.6 mL/hr), IntraVENous, CONTINUOUS, Starting on Mon08/29/21 at [...] If Titrate Infusion? is No : Disregard instructionsbelow. If Titrate infusion? is Yes : Titrate in increments of 5 mcg/kg/min no more frequently than every 5 minutes to goal of therapy. If after titration rate change patient exhibits adverse hemodynamic response, next titration rate change may be adjusted by one-half of the previous rate change. If patient fails sedation interruption, resume propofolinfusion at 50% of previous rate. Do not administer through the same I.V. catheter with blood or plasma. Tubing and any unused portions of propofol vials should be discarded after 12 hours.0.25 mg, 0.5 mg dose 1.5 ml semaglutide 1.34 mg/ml pen injector (1 source)Start: 57-37-7042jdnddloogsk (OZEMPIC) 0.25 mg or 0.5 mg(2 mg/1.5 mL) pen injector Indications: Type 2 diabetes mellitus with microalbuminuria, without long-term current use of insulin ([facility]) Inject 0.5 mg under the skin every 7 days. 1.5 mL 2 07/18/2023 Activetamsulosin hydrochloride 0.4 mg oral capsule (6 sources)alpha-Adrenergic BlockerStart: 06-07-2022 End: 15-15-9538tflz 1 capsule by mouth once dailytamsulosin (FLOMAX) 0.4 MG capsule Take 1 capsule by mouth daily 30 capsule 0 06/30/2022 ActiveStart: 52-13-7301vtuw 0.4 mg by mouth once daily0.4 mg, Oral, DAILY, First dose on 06/04/22 at 1145, Until Discontinued Do not crush or break. (12 sources)Start: 06-02-2022[Order 1 Start] Name: dextrose bolus 10% 125 mL Signed [...] PRN, Other, Blood glucose LESS than 40 mg/dLand patient NOT ALERT or NPO, Starting on Kathy 06/02/22 at 1824 Start D5W at 100 mL/hour until ordering provider can be reached. Repeat blood glucose in 15 minutes. If blood glucose is LESS than 40 mg/dL, repeat treatment and recheck blood glucose in 15 minutes x 2. If using Glucostabilizer, dose as instructed per system. Post-op [Order 2 End]Start: 06-02-2022[Order 1 Start] Name: fentaNYL (SUBLIMAZE) injection 25 mcg Signed Summary: 25 mcg, IntraVENous, EVERY 1 HOUR PRN, Starting on Kathy 06/02/22 at 1824, Until Discontinued, Pain Moderate (4-6) If oral andIV narcotics ordered, use oral first and only [...] other unless specifically ordered. Post-op [Order 2 End]Start: 32-96-2666gvzo 1 tablet by mouth every four hours as needed[Order 1 Start] Name: oxyCODONE-acetaminophen (PERCOCET) 5-325 MG [...] all sources in 24 hours. Post-op [Order 2End] Start: 06-02-2022[Order 1 Start] Name: ondansetron (ZOFRAN-ODT) disintegrating tablet 4 mg Signed Summary: 4 mg, Oral, EVERY 8 HOURS PRN, Starting on Akthy 06/02/22 at 1824, Until Discontinued, Nausea, Vomiting, Post-op[Order 1 End] [Order 2 Start] Name: ondansetron (ZOFRAN) injection 4 mg Signed Summary: 4 mg, IntraVENous, EVERY 6 HOURS PRN, Starting on Kathy 06/02/22 at 1824, Until Discontinued, Nausea, Vomiting Administer if oral route cannot be used. Post-op [Order 2 End]Start: 09-09-2021 End: mg, IntraVENous, at 400 mL/hr, Administer over 15 Minutes, ONCE, On Kathy 09/09/21 at 1630, For 1 doseStart: 13-76-8026stkv 100 mg intravenously every twenty-four hours2,000 mg, IntraVENous, EVERY 24 HOURS, First dose on Mon09/06/21 at 1315, Until Discontinued Antimicrobial Indications: Bloodstream Infection Administer as slow IV Push over 5 mins R econstitute 2 g vials with 19.2 mL of designated diluent to produce a 100mg/mL solutionStart: 09-02-2021 End: 69-53-9562tjuf 1 dose intravenously every twelve ybfsx273 mg (3.39 mg/kg), IntraVENous, at 50 mL/hr, Administer over 1 Hours, EVERY 12 HOURS, First dose on Kathy 09/02/21 at 1400 Administer by slow IV infusion over 60 minutes.Start: 08-30-2021 End: 11-71-3759wsce 20 mL intravenously every hour2,000 mg, IntraVENous, at 40 mL/hr, Administer over 30 Minutes, EVERY 12 HOURS, First dose on Mon08/30/21 at 0945, For 7 days Administer as slow IV Push over 5 mins Reconstitute 2 g vial with 10 mL of designated diluent. Then, to produce a 100 mg/mL solution, further dilute in syringe to 20 mL.Start: 08-29-2021 End: .5-15 mg/hr (25-150 mL/hr), IntraVENous, CONTINUOUS, Starting on [...] a peripheral vein is used. If Titrate Infusion?is No : Disregard instructions below. If Titrate infusion? is Yes : Titrate in increments of 2.5 mg/hr no more frequently than every 15 minutes to goal of therapy.Start: 08-29-2021 End: 33-85-1687rkjq 20 mg intravenously twice daily20 mg, IntraVENous, 2 TIMES DAILY, First dose on Mon08/29/21 at 0900, Until Discontinued IV Push over minimum of 2 minutes - Dilute with 10 mL NSStart: 08-29-2021[Order 1 Start] Name: acetaminophen (TYLENOL) tablet 650 mg Signed Summary: 650 mg, Oral, EVERY 6 HOURS PRN, Starting on Mon08/29/21 at 0640, Until Discontinued, Pain Mild (1- 3), Fever, For temp greater than 100.4 F (38 C) Maximum dose of acetaminophen is 4000 mg from all sources in 24 hours. [Order 1 End] [Order 2 Start] Name: acetaminophen (TYLENOL) suppository 650 mg Signed Summary: 650 mg, Rectal, EVERY 6 HOURS PRN, Starting on 08/29/21 at 0640, Until Discontinued, Pain Mild (1- 3), Fever, For temp greater than 100.4 F (38 C) Administer if oral route cannot be used. [Order 2 End]Start: 08-29-2021[Order 1 Start] Name: ondansetron (ZOFRAN-ODT) disintegrating tablet 4 mg Signed Summary: 4 mg, Oral, EVERY 8 HOURS PRN, Starting on 08/29/21 at 0640, Until Discontinued, Nausea, Vomiting [Order 1End] [Order 2 Start] Name: ondansetron (ZOFRAN) injection 4 mg Signed Summary: 4 mg, IntraVENous, EVERY 6 HOURS PRN, Starting on 08/29/21 at 0640, Until Discontinued, Nausea, Vomiting Administer if oral route cannot be used. [Order 2 End] Completed/Discontinued Medications MedicationDrug Class(es)DatesSig (Normalized)Sig (Original)acetylcysteine 200 mg/ml inhalation solution (3 sources)Antidote, Mucolytic, Antidote for Acetaminophen OverdoseStart: 05-26-2022 End: 37-43-2812hzex 1 dose by mouth [id number] mg, Oral, ONCE, 1 dose, On Mon05/26/22 at 2300Start: 05-26-2022 End: 05-79-3882466 mg, Oral, 2 TIMES DAILY, 4 doses, First dose on Mon05/26/22 at 0100, Last dose on Mon05/27/22 at 0900albuterol 0.833 mg/ml / ipratropium bromide 0.167 mg/ml inhalation solution (1 source)Anticholinergic, beta2-Adrenergic AgonistStart: ampule, Inhalation, EVERY 4 HOURS PRN, Starting on Mon06/02/22 at 1824, Until Discontinued, Shortness of Breath Initiate RT Bronchodilator Protocol: Yes Post-opamiodarone hydrochloride 200 mg oral tablet (20 sources)AntiarrhythmicStart: 08-22-2022 End: 37-20-5062ihde 1 tablet by mouth in the morningamiodarone (PACERONE) 200 mg tablet Take 1 tablet (200 mg total) by mouth in the morning. 08/22/2022 07/18/2023 Discontinued (Therapy completed)Start: 06-04-2022 End: 78-60-9341wgnp 1 tablet by mouth twice dailyamiodarone (CORDARONE) 200 MG tablet Take 1 tablet by mouth 2 times daily 60 tablet 0 06/30/2022 ActiveStart: 05-30-2022 End: 44-35-2999azfj 200 mg by mouth three times mg, Oral, 3 TIMES DAILY, First dose on Mon06/02/22 at 2100, Until Discontinued Hold for QTC grea ter than 500 and HR less than 60. Post-opamLODIPine 10 mg oral tablet (1 source)Dihydropyridine Calcium Channel BlockerStart: 09-08-2021 End: 76-47-8110gumw 10 mg by mouth once daily10 mg, Oral, DAILY, First dose on Mon09/08/21 at 0615, Until Discontinuedbisacodyl 10 mg rectal suppository (2 sources)Stimulant LaxativeStart: 04-46-7428wilx 10 mg rectal route once daily as mg, Rectal, DAILY PRN, Starting on Mon06/02/22 at 1824, Until Discontinued, Constipation Second line therapy for constipation, After 24 hours, if no result from first line PRN therapy, give secondline therapy in combination with first line therapy. Post-opStart: 46-71-6329aoso 10 mg rectal route once daily as mg, Rectal, DAILY PRN, Starting on Mon09/05/21 at 1838, Until Discontinued, Constipationcalcium chloride 0.0014 meq/ml / potassium chloride 0.004 meq/ml / sodium chloride 0.103 meq/ml / sodium lactate 0.028 meq/ml injectable solution (1 source)Start: 05-23-2022 End: 68-90-7490QvsweBVMdga, at 100 mL/hr, CONTINUOUS, Starting on Mon05/23/22 at 1230cefdinir 300 mg oral capsule (1 source)Cephalosporin AntibacterialStart: 04-24-2023 End: 87-60-1389avza 1 capsule by mouth twice dailycefDINIR (OMNICEF) 300 mg capsule take 1 capsule by mouth twice a day for 10 days 0 04/24/2023 05/05/2023 Discontinued (Therapy completed)cefTRIAXone (ROCEPHIN) 2,000 mg in dextrose 5 % 50 mL IVPB mini-bag (1 source)Start: 09-28-2021 End: 03-55-4443oscSUKWUdtw (ROCEPHIN) 2,000 mg in dextrose 5 % 50 mL IVPB mini-bagcefTRIAXone (ROCEPHIN) 2,000 mg in sterile water 20 mL IV syringe (1 source)Start: 09-13-2021 End: 39-28-7706bpmAQOVGrow (ROCEPHIN) 2,000 mg in sterile water 20 mL IV syringe cefTRIAXone (ROCEPHIN) 2000 mg IVPB in D5W 50ml minibag (11 sources)Start: 09-25-2021 End: 13-42-0826rqgMQDSUuts (ROCEPHIN) 2000 mg IVPB in D5W 50ml minibagStart: 09-24-2021 End: 60-18-2025rscUBBAGjrs (ROCEPHIN) 2000 mg IVPB in D5W 50ml minibagStart: 09-23-2021 End: 57-28-2510lkoWFAGXtmd (ROCEPHIN) 2000 mg IVPB in D5W 50ml minibagStart: 09-22-2021 End: 58-06-2839sylDOYOVgnu (ROCEPHIN) 2000 mg IVPB in D5W 50ml minibagStart: 09-21-2021 End: 95-02-8662aydSRZGRfbr (ROCEPHIN) 2000 mg IVPB in D5W 50ml minibagStart: 09-20-2021 End: 39-08-5886oadGBXSMpii (ROCEPHIN) 2000 mg IVPB in D5W 50ml minibagStart: 09-19-2021 End: 19-39-0068doqDTHNZdct (ROCEPHIN) 2000 mg IVPB in D5W 50ml minibagStart: 09-18-2021 End: 89-53-7384dqbJZEYWsfp (ROCEPHIN) 2000 mg IVPB in D5W 50ml minibagStart: 09-17-2021 End: 18-51-7741mpmLVXVCnxx (ROCEPHIN) 2000 mg IVPB in D5W 50ml minibagStart: 09-15-2021 End: 32-45-4617thiXJFNCskm (ROCEPHIN) 2000 mg IVPB in D5W 50ml minibagStart: 09-14-2021 End: 69-08-5159tcxMHPUZtzb (ROCEPHIN) 2000 mg IVPB in D5W 50ml minibag chlorhexidine gluconate 1.2 mg/ml mouthwash (2 sources)Start: 05-30-2022 End: 73-69-5292swqf 1 dose by mouth once15 mL, Mouth/Throat, ONCE, 1 dose, On Mon05/30/22 at 2045 Morning of surgery Pre-op (day of surgery)Start: 05-30-2022 End: 81-85-0956Hfcyuis, SEE ADMIN INSTRUCTIONS, Starting on Mon05/30/22 at 2019, For 2 doses Night prior to surgery and after hair clipping morning of surgery Pre-op (day of surgery)cinacalcet 30 mg oral tablet (14 sources)Calcium-sensing Receptor AgonistStart: 12-06-2022 End: 23-94-8510pkljzqtgca (SENSIPAR) 30 mg tablet Take 1 tablet (30 mg total) by mouth. 12/06/2022 07/18/2023 Discontinued (Therapy completed)100 ml dexmedetomidine 0.004 mg/ml injection (1 source)Central alpha-2 Adrenergic AgonistStart: 09-03-2021 End: 12-97-9187fyns 2.9-43.4 mL intravenously every hour0.1-1.5 mcg/kg/hr 115.6 kg (2.89-43.35 mL/hr, rounded to 2.9-43.4 mL/hr), IntraVENous, CONTINUOUS, S tarting on Mon09/03/21 at 1345, Until Mon09/07/21 at 1248 Titrate Infusion? Yes Initial Infusion Dose: 0.2 mcg/kg/hr Goal of Therapy: RASS of -1 to 0 Contact Provider if: New onset HR less than 50 bpm,New onset SBP less than 90 mmHg, Patient is receiving maximum dose and is not achieving the goal oftherapy If Titrate Infusion? is No : Disregard instructions below. If Titrate infusion? is Yes : Titrate in increments of 0.2 mcg/kg/hr no more frequently than every 30 minutes to goal of therapy. If after titration rate change patient exhibits adverse hemodynamic response, next titration rate change may be adjusted by one-half of the previous rate change. If patient fails sedation interruption, resume dexmedetomidine infusion at 50% of previous rate.diphenhydrAMINE hydrochloride 25 mg oral tablet (1 source)Histamine-1 Receptor AntagonistStart: 31-86-2046zara 25 mg by mouth once daily as mg, Oral, NIGHTLY PRN, Starting on Mon06/03/22 at 0000, Until Discontinued, Sleep, Post-opdocusate sodium 100 mg oral capsule (1 source)Start: 02-02-2016 End: 71-59-3370izawznhl sodium 50 mg / sennosides, retirement 8.6 mg oral tablet (1 source)Start: 14-31-4457ksin 1 tablet by mouth twice daily1 tablet, Oral, 2 TIMES DAILY, First dose on Kathy 06/02/22 at 2100, Until Discontinued, Post-opDrug or medicament (substance) (6 sources)Start: 06-02-2022 End: ,000 mg, IntraVENous, EVERY 8 HOURS, 5 doses, First dose (after last reorder) on Kathy 06/02/22 at 2200, Last dose on 06/04/22 at 0600 Antimicrobial Indications: Surgical Prophylaxis Administer over 5 mins. Post-op Start: 09-13-2021 End: 48-27-7266Lrcwn: 09-08-2021 End: 46-26-6117zroc 1 dose intravenously once20 millicurie, IntraVENous, IMG ONCE PRN, 1 dose, Starting on Mon09/08/21 at 1128, Until Discontinued, Other, Nuclear MedicineStart: 09-01-2021 End: 40-48-0172pcyi 0.5-4 mL intravenously every sjxx66-413 mcg/hr (0.5-4 mL/hr), IntraVENous, CONTINUOUS, Starting on Mon09/01/21 at 0900, Until 09/07 at 0705 Titrate Infusion? Yes Initial Infusion [...] titration dose change may be adjusted by one- half of the previous dose change. If patient fails sedation interruption, resume infusion at 50% of previous dose.Start: 08-31-2021 End: ,500 mg (13.6 mg/kg), IntraVENous, at 125 mL/hr, Administer over 120 Minutes, EVERY 24 HOURS, First dose on Mon08/31/21 at 1000Start: 08-30-2021 End: ,000 mg (18.1 mg/kg), IntraVENous, at 250 mL/hr, Administer over 120 Minutes, ONCE, On Mon08/30/21at 1000, For 1 dosedulaglutide (TRULICITY) 3 mg/0.5 mL pen injector (1 source) End: 64-73-2362vxlayifqdbb (TRULICITY) 3 mg/0.5 mL pen injector Inject 3 mg under the skin. 0 03/08/2023 Discontinueddulaglutide 3 mg/0.5 mL pen injector (9 sources)Start: 04-19-2023 End: 06-07-0440yzijnmfnkxx 3 mg/0.5 mL pen injector Indications: Type 2 diabetes mellitus with microalbuminuria, without long-term current use of insulin ([facility]) Inject 3 mg under the skin every 7 days. 2 mL 4 04/19/2023 07/18/2023 Discontinued (Therapy completed)Start: 01-80-9780ihhjezxozqc 3 mg/0.5 mL pen injector Indications: Type 2 diabetes mellitus with microalbuminuria, without long-term current use of insulin ([facility]) Inject 3 mg under the skin every 7 days. 2 mL 4 04/19/2023 Activeergocalciferol 1.25 mg oral capsule (17 sources)Provitamin D2 CompoundStart: 09-12-2021 End: 61-20-2568Vvlshyf D, Ergocalciferol, 17601 units CAPS 50,000 Units by Per NG tube route once a week 5 capsule0 09/12/2021 09/28/2021 Discontinued (Therapy completed)Start: 23-22-052908,000 Units, Per NG tube, WEEKLY, First dose on Mon09/04/21 at 1100, Until Discontinuedfamotidine 20 mg oral tablet (3 sources)Histamine-2 Receptor AntagonistStart: 09-05-2021 End: 65-02-596064 mg, Per G Tube, 2 TIMES DAILY, First dose (after last modification) on Mon09/05/21 at 2100, UntilDiscontinued Renal dose adjustment per P&T GuidelinesStart: 09-04-2021 End: 53-75-405185 mg, Per G Tube, DAILY, First dose (after last modification) on Mon09/04/21 at 0900, Until Discontinued Renal dose adjustment per P&T Guidelines Start: 08-31-2021 End: 27-63-801000 mg, Per G Tube, 2 TIMES DAILY, First dose on Mon08/31/21 at 2100, Until Discontinuedfenofibrate 160 mg oral tablet (1 source)Peroxisome Proliferator Receptor alpha AgonistStart: 05-25-2022 End: 41-71-5627qexu 160 mg by mouth once [id number] mg, Oral, DAILY, First dose on Mon05/25/22 at 0900, Until Discontinued Substituted for Fenofibrate (Non- Formulary Dose).2 ml fentaNYL 0.05 mg/ml injection (3 sources)Opioid AgonistStart: 08-30-2021 End: 19-77-7997veyo 50 ug by mouth every hour as needed for pain50 mcg, IntraVENous, EVERY 1 HOUR PRN, Starting on Mon08/30/21 at 2111, Until Mon09/07/21 at 0705, Pain Severe (7-10) If oral and IV narcotics ordered, use oral first and only use IV if oral is ineffective or cannot take oral. Do Not give oral and IV within 1 hour of each other unless specifically ordered.Start: 08-29-2021 End: 11-64-0175xkpk 1 dose by mouth ojfn668 mcg, IntraVENous, ONCE, 1 dose, On Mon08/29/21 at 0500 If oral and IV narcotics ordered, use oral first and only use IV if oral is ineffective or cannot take oral. Do Not give oral and IV within 1 hour of each other unless specifically ordered.Start: 08-29-2021 End: 19-04-6380eoww 1 dose by mouth takw950 mcg, IntraVENous, ONCE, 1 dose, On 08/29/21 at 0315 If oral and IV narcotics ordered, use oral first and only use IV if oral is ineffective or cannot take oral. Do Not give oral and IV within 1 hour of each other unless specifically ordered.fluticasone propionate 0.05 mg/actuat metered dose nasal spray (20 sources)CorticosteroidStart: 05-27-2022 End: 86-73-4465henb 1 spray(s) nasal route twice daily as needed for rhinitis1 spray, Each Nostril, 2 TIMES DAILY PRN, Starting on Mon05/27/22 at 0427, Until Kathy 06/02/22 at 1824, RhinitisStart: 30-35-3435uhey 2 spray(s) nasal route in the morningfluticasone propionate (FLONASE) 50 mcg/actuation nasal spray Indications: Seasonal allergic rhinitis due to pollen Administer 2 sprays into each nostril in the morning. 15.8 mL 6 11/18/2021 Activetake 2 spray(s) nasal route in the morningfluticasone (Flonase) 50 MCG/ACT nasal spray Administer 2 sprays into each nostril in the morning. Shake gently. Before first use, prime pump. After use, clean tip and replace cap.. Activetake 2 spray(s) nasal route once dailyfluticasone (VERAMYST) 27.5 MCG/SPRAY nasal spray 2 sprays by Each Nostril route daily 0 Active4 ml furosemide 10 mg/ml injection (10 sources)Loop DiureticStart: 06-05-2022 End: 41-48-974690 mg, IntraVENous, ONCE, 1 dose, On 06/05/22 at 1000Start: 06-84-453668 mg, IntraVENous, DAILY, First dose (after last modification) on Mon09/07/21 at 0900, Until DiscontinuedStart: 09-05-2021 End: 57-03-821514 mg, IntraVENous, EVERY 12 HOURS, First dose on Mon09/05/21 at 1700, Until DiscontinuedStart: 09-02-2021 End: mg, IntraVENous, 2 TIMES DAILY, First dose on Kathy 09/02/21 at 1130, Until Discontinuedfurosemide (LASIX) 20 MG tablet Take by mouth daily 0 Activefurosemide (LASIX) 10 MG/ML solution Take by mouth daily 0 Activeglucagon (rdna) 1 mg injection (1 source)Antihypoglycemic AgentStart: 59-43-4261bqyj 1 mL intravenously every hour1 mg, IntraMUSCular, PRN, Starting on Kathy 06/02/22 at 1824, Until Discontinued, Low blood sugar, Blood glucose less than 70 mg/dL and patient NOT ALERT or NPO and does not have IV access. After administration, attempt intravenous access and start D5W at 100 mL/hr. Repeat blood glucose in 15 minutes x2 and notify provider. Post-op250 ml heparin sodium, porcine 100 unt/ml injection (4 sources)Unfractionated Heparin, Anti-coagulantStart: 05-23-2022 End: -30 Units/kg/hr 127 kg (6.35-38.1 mL/hr, rounded to 6.4-38.1 mL/hr), IntraVENous, CONTINUOUS, Starting on 05/23/22 at 1230, Until Kathy 06/02/22 at 0000 Heparin Weight-Based Infusion (CAD/STEMI/NSTEMI/UA/AFIB) Patient weight: 127 kg Initial Infusion rate: 7 Units/kg/hr [Dose adjusted to reflect maximum initial infusion rate of 1000 Units/hr] (If aninitial bolus is ordered, give the bolus prior to the initiation of the infusion) Adjust infusion rate based on aPTT results as listed below. Rate adjustments are to be based on initial weight of 127 kg. aPTT < 30 secs Heparin 60 units/kg bolus (Max = 4,000 units) then increase infusion by 4 units/kg/hr. aPTT 30-49 secs Heparin 30 units/kg bolus (Max = 2,000 units) then increase infusion by 2 units/kg/hr. aPTT 50-70 secs No bolus. No change. aPTT 71-85 secs No bolus. Decrease infusion by 2 units/kg/hr. [id number] secs Hold heparin for 60 minutes then decrease infusion by 3 units/kg/hr. aPTT >100 secs Hold heparin for 60 minutes then decrease infusion by 4 units/kg/hr. Ch almaz aPTT 6 hours after initiation and 6 hours after every dose change. When aPTT is within target range for two consecutive times, check aPTT once daily with morning labs. If the rate titration adjustment indicated by the nomogram causes a dose that is above the ordered range contact provider. If heparin drip is held or stopped for a procedure, call provider to obtain resume rate. Start: 05-23-2022 End: ,000 Units, IntraVENous, PRN, Starting on Mon05/23/22 at 1221, Until Mon06/02/22 at 1824, Other, heparin dosing algorithm Half dose re-bolus based on pharmacy algorithmStart: 09-13-2021 End: 55-48-9989ebrdcfo flush 100 UNIT/ML injection 500 UnitsStart: 09-02-2021 inject 1 dose by subcutaneous injection three times daily5,000 Units, SubCUTAneous, EVERY 8 HOURS SCHEDULED (3 times per day), First dose on Mon09/02/21 at 1400, Until Discontinued1 ml hydrALAZINE hydrochloride 20 mg/ml injection (2 sources)Arteriolar VasodilatorStart: mg, IntraVENous, EVERY 5 MIN PRN, Starting on Kathy 06/02/22 at 1824, Until Discontinued, High BloodPressure, Give for sustained SBP > 160 Refer to hemodynamic goals for specific blood pressure parameters. May repeat doses up to a total of 20mg IV every 6 hours. Post-opStart: 09-07-2021 End: mg, IntraVENous, EVERY 6 HOURS PRN, Starting on Mon09/07/21 at 0513, Until Mon09/07/21 at 0910, High Blood Pressure, for SBP > 150insulin lispro 100 unt/ml injectable solution (5 sources)Insulin AnalogStart: 05-23-2022 End: Units, SubCUTAneous, ONCE, 1 dose, On 05/23/22 at 2115Start: 05-23-2022 End: -3 Units, SubCUTAneous, NIGHTLY, First dose on Kathy 06/02/22 at 2100, Until Discontinued If continuous tube feedings/TPN/NPO, give correction dose based on result, no reduction in dose. If eating or bolus tube feeding: Corrective Bedtime (50%) Low Dose Algorithm Glucose: Dose: 70-139 &n bsp; No Insulin 140-249 1 Unit 250-349 2 Units Over 350 3 Units Post-opStart: 05-23-2022 End: -6 Units, SubCUTAneous, 3 TIMES DAILY WITH MEALS, First dose on Mon06/02/22 at 1845, Until Discontinued Corrective Low Dose Algorithm Glucose: Dose: 70-139 &a mp;nbsp; No Insulin 140-199 1 Unit 200-249 2 Units 250-299 3 Units 300-349 4 Units 350-399 5 Units Over 399 6 Units Post-op insulin regular (HUMULIN R;NOVOLIN R) 100 Units in sodium chloride 0.9 % 100 mL infusion (1 source)Start: 06-02-2022 End: 57-94-8627asqw 1-50 [IU] intravenously every hour, then take 1-50 mL intravenously every hour1-50 Units/hr (1-50 mL/hr), IntraVENous, CONTINUOUS, Starting on Kathy 06/02/22 at 1845, Until Mon06/03/22 at 1844 Low target 80. High target 130. Begin infusion rate by thefollowing formula: (BG - 60) x 0.03 = [...] hours, may check BG every 2 hours. Post-oplabetalol hydrochloride 5 mg/ml injectable solution (4 sources)beta-Adrenergic BlockerStart: 05-24-2022 End: 07-01-860638 mg, IntraVENous, ONCE, 1 dose, On Mon05/24/22 at 2345Start: 05-24-2022 End: 99-33-680382 mg, IntraVENous, ONCE, 1 dose, On Mon05/24/22 at 2000Start: 91-25-945483 mg, IntraVENous, EVERY 6 HOURS PRN, Starting on Mon09/07/21 at 0915, Until Discontinued, High Blood Pressure, SBP > 150 Do not administer if HR less than 60Start: 09-06-2021 End: 60-54-744584 mg, IntraVENous, EVERY 2 HOURS PRN, Starting on Mon09/06/21 at 2238, Until Mon09/07/21 at 0910, High Blood Pressure, SBP > 150 Do not administer if HR less than 603 ml liraglutide 6 mg/ml pen injector (20 sources)GLP-1 Receptor AgonistStart: 04-03-2024 End: 78-86-1158ovitrtoaecv (VICTOZA 3-ALICE) 0.6 mg/0.1 mL (18 mg/3 mL) pen injector Indications: Uncontrolled type 2 diabetes mellitus with hyperglycemia ([facility]) Inject 0.3 mL (1.8 mg total) under the skin in the morning. 3 mL 6 04/03/2024 06/10/2024 DiscontinuedStart: 11-27-2023 End: 60-54-1374aiqwonbpjci (VICTOZA) 0.6 mg/0.1 mL (18 mg/3 mL) pen injector Indications: Type 2 diabetes mellituswith microalbuminuria, without long-term current use of insulin ([facility]) 1.8mg SUBCUTANEOUSLY (UNDER THE SKIN) 6 mL 11/27/2023 11/27/2023 DiscontinuedStart: 10-23-2023 End: 40-83-5893vdreyx 1.8 mg by subcutaneous injection once dailyliraglutide (VICTOZA) 0.6 mg/0.1 mL (18 mg/3 mL) pen injector Indications: Type 2 diabetes mellituswith microalbuminuria, without long-term current use of insulin ([facility]) INJECT 1.8mg SUBCUTANEOUSLY (UNDER THE SKIN) EVERY DAY 6 mL 11/27/2023 ActiveStart: 07-19-2023 End: 36-53-9267rljfwdeyjqa (VICTOZA 3-ALICE) 0.6 mg/0.1 mL (18 mg/3 mL) pen injector Indications: Type 2 diabetes mellitus with microalbuminuria, without long-term current use of insulin ([facility]) Week one, administer 0.6 mg daily. Week two, administer 1.2 mg daily, then on week three, increase to 1.8 mg daily. 3 mL 07/19/2023 10/20/2023 Discontinued (Reorder)1 ml LORazepam 2 mg/ml injection (2 sources)BenzodiazepineStart: 08-29-2021 End: mg, IntraVENous, ONCE, 1 dose, On 08/29/21 at 0245Start: 08-29-2021 End: mg, IntraVENous, ONCE, 1 dose, On 08/29/21 at 0130magnesium hydroxide 80 mg/ml oral suspension (1 source)Start: 20-32-8048jjag 30 mL by mouth once daily as jwajcl24 mL, Oral, DAILY PRN, Starting on Kathy 06/02/22 at 1824, Until Discontinued, Constipation First line therapy for constipation. Post-opmeclizine hydrochloride 25 mg oral tablet (8 sources)AntiemeticStart: 04-24-2023 End: 80-77-0159wcvo 1 tablet by mouth four times daily for dizzinessmeclizine (ANTIVERT) 25 mg tablet take 1 tablet by mouth four times a day if needed for dizziness 04/24/2023 07/18/2023 Discontinued (Therapy completed)2 ml midazolam 1 mg/ml injection (3 sources)BenzodiazepineStart: 09-04-2021 End: mg, IntraVENous, ONCE, 1 dose, On 09/04/21 at 0530Start: 09-04-2021 End: dose, Starting on 09/04/21 at 0503, Until 09/04/21 at 0510 Ella Donaldson: gamalielinejeet override Ella Donaldson: gamalielinet overrideStart: 09-01-2021 End: mg, IntraVENous, ONCE, 1 dose, On 09/01/21 at 1215NIFEdipine 30 mg osmotic 24 hr extended release oral tablet (20 sources)Dihydropyridine Calcium Channel BlockerStart: 12-16-2022 End: 14-98-4975pzxc 1 tablet by mouth every twenty-four hours in the morning NIFEdipine XL (PROCARDIA XL) 30 mg 24 hr tablet Indications: Dilated cardiomyopathy (CMS-HCC) , Benign essential HTN Take 1 tablet (30 mg total) by mouth in the morning. 60 tablet 4 12/16/2022 03/08/2023 Discontinued (Therapy completed)Start: 08-09-2022 End: 36-38-7422vysw 2 tablets by mouth twice dailyNIFEdipine (PROCARDIA XL) 30 MG extended release tablet Take 2 tablets by mouth 2 times daily 360 tablet 0 08/09/2022 11/07/2022 ActiveStart: 05-26-2022 End: 18-89-4949xzyy 60 mg by mouth once daily60 mg, Oral, DAILY, First dose (after last modification) on Kathy 05/26/22 at 0900, Until DiscontinuedDo not crush or break.Start: 05-25-2022 End: 33-50-7767phnr 90 mg by mouth once daily90 mg, Oral, DAILY, First dose (after last modification) on 05/28/22 at 0900, Until DiscontinuedDo not crush or break.Start: 09-08-2021 End: 70-80-2035najg 1 tablet by mouth once dailyNIFEdipine (PROCARDIA XL) 30 MG extended release tablet Take 1 tablet by mouth daily 30 tablet 3 09/13/2021 Yuhmzw622 ml nitroglycerin 0.2 mg/ml injection (1 source)Nitrate VasodilatorStart: 08-29-2021 End: -200 mcg/min (1.5-60 mL/hr), IntraVENous, CONTINUOUS, Starting on 08/29/21 at 0215, Until 08/29/21 at 0225 Titrate Infusion? Yes Initial Infusion Dose: 20 mcg/min Goal of Therapy is: SBP less than 160 mmHg Contact Provider if: SBP less than 90 mmHg If Titrate Infusion? is No : Disregard inst ructions below. If Titrate infusion? is Yes : If rate LESS than 20 mcg/min: Titrate by 5 mcg/min no faster than every 5 minutes to goal. If rate GREATER than or equal to 20 mcg/min: Titrate by 10 mcg/min no faster than every 5 minutes to goal.ondansetron 4 mg disintegrating oral tablet (3 sources)Serotonin-3 Receptor AntagonistStart: 04-24-2023 End: 08-98-1762gpfbdznjrrd ODT (ZOFRAN ODT) 4 mg disintegrating tablet dissolve 1 tablet ON TONGUE every 6 hours if needed for nausea and vomiting 0 04/24/2023 05/10/2023 Discontinued (Therapy completed)oxyCODONE hydrochloride 1 mg/ml oral solution (2 sources)Opioid AgonistStart: 09-05-2021 End: mg, Per NG tube, EVERY 6 HOURS, First dose (after last modification) on 09/05/21 at 2300, Until Discontinued Give via OGTStart: 09-04-2021 End: mg, Per NG tube, EVERY 6 HOURS, First dose (after last modification) on 09/04/21 at 1100, UntilDiscontinued Give via OGTpantoprazole (PROTONIX) 40 mg in sodium chloride (PF) 0.9 % 10 mL injection (1 source)Start: 06-02-2022 End: mg, IntraVENous, DAILY, First dose on Mon06/02/22 at 1845 Reconstitute with 10 mL 0.9 % sodium chloride and administer over at least 2 minutes. Post-oppotassium bicarbonate 20 meq effervescent oral tablet (1 source)Start: 09-07-2021 End: mEq, Oral, ONCE, 1 dose, On Mon09/07/21 at 1945 Do not chew or crush. Dissolve flavored tablets completely in 3 to 4 ounces of cold water; unflavored tablets may be dissolved in 3 to 4 ounces of cold juice. Patient to sip slowly over a 5 to 10 minute period. May further dilute if GI adverse effects occur.QUEtiapine 25 mg oral tablet (2 sources)Atypical AntipsychoticStart: 09-04-2021 End: 13-28-4636vxpv 25 mg by mouth once daily25 mg, Oral, NIGHTLY, First dose (after last modification) on Mon09/10/21 at 2230, Until Discontinued Per Nereyda calcitonin 200 unt/ml injectable solution (1 source)CalcitoninStart: 09-06-2021 End: Units, IntraMUSCular, DAILY, 2 doses, First dose on Mon09/06/21 at 1415, Last dose on Mon09/07/21at 0900 Stop after 2 doses due to decreased efficacy after 24 hours of therapy. Keep refrigerated.10 ml sodium bicarbonate 84 mg/ml injection (1 source)Start: 06-02-2022 End: mEq, IntraVENous, EVERY 30 MIN PRN, Starting on Mon06/02/22 at 1824, Until 06/05/22 at 1823, Other, For Base deficit greater than -5 Please call CTS team if greater than 2 amps is administered Post-op5 ml sodium chloride 9 mg/ml injection (20 sources)Start: 49-10-5332GxnnnWBDvcg, at 50 mL/hr, PRN, Use as chaser for manifold, Starting on Mon06/02/22 at 1824 Use as chaser for manifold. D/C when manifold is torn down. Post-opStart: 68-19-6546wcpd 5-40 mL intravenously once as needed5-40 mL, IntraVENous, PRN, Starting on Kathy 06/02/22 [...] Midline or Central Line = 20 mL/lumen Post-opStart: 05-31-2022 End: 52-63-8108NnedoWEGglx, at 5-250 mL/hr, PRN, if patient receiving piggyback infusions and maintenance fluids are not ordered OR KVO fluids to protect IV site / prevent frequent line interruptions/ long duration, Starting on Kathy 06/02/22 at 1824 For piggyback infusion, administer at same rate as piggyback for atotal of 25 mL. Enter 25 mL into dose field and piggyback rate into rate field of order. If piggyback is infusing at a rate less than 100 mL/hr, enter 25 mL into dose field and 100 mL/hr into rate field of order. For KVO fluids, enter rate of 20 mL/hr or less into rate field of order. Post-opStart: 05-26-2022 End: 05-79-4587PjodhQPTdpk, at 75 mL/hr, CONTINUOUS, Starting on Kathy 05/26/22 at 1400Start: 05-25-2022 End: 64-21-7412QzkxdETTkhf, at 75 mL/hr, CONTINUOUS, Starting on Mon05/25/22 at 1445Start: 05-23-2022 End: 57-79-5594iaqq 1 dose intravenously twice daily5-40 mL, IntraVENous, EVERY 12 HOURS SCHEDULED (2 times per day), First dose on Kathy 06/02/22 at 2100, Until Discontinued For Line Patency: Peripheral IV = 5 mL; Midline or Central Line = 10 mL/lumen. If following IV push medication, administer flush at same rate as the IV push. Flush volume is determined by type of infusion therapy being given. For non-viscoussolutions use: Peripheral IV = 5 mL Midline or Central Line = 10 mL/lumen For viscous solutions (i.e. blood components, parenteral nutrition, contrast media, or after obtaining blood sample) use: Peripheral IV = 10 mL Midline or Central Line = 20 mL/lumen Post-opStart: 09-28-2021 End: 58-34-9265udqqcq chloride flush 0.9 % injection 5-40 mLStart: 09-20-2021 End: 42-86-1913qfbgoy chloride flush 0.9 % injection 5-40 mLStart: 09-17-2021 End: 84-23-9015tlvavx chloride flush 0.9 % injection 5-40 mLStart: 09-13-2021 End: 76-94-8874amzjnj chloride flush 0.9 % injection 5-40 mLStart: 09-13-2021 End: .9 % sodium chloride infusionStart: 08-31-2021 End: 59-53-9752523 mL (4.52 mL/kg), IntraVENous, at 247.9 mL/hr, Administer over 121 Minutes, ONCE, On Mon08/31/21at 0100, For 1 doseStart: 94-95-1183cdus 1 dose intravenously twice daily5-40 mL, IntraVENous, EVERY 12 HOURS SCHEDULED (2 times per day), First dose on Mon08/29/21 at 0900, Until Discontinued For Line Patency: Peripheral IV = 5 mL; Midline or Central Line = 10 mL/lumen.&a mp;nbsp; If following IV push medication, administer flush at same rate as the IV push. Flush volume is determined by type of infusion therapy being given. For non-viscoussolutions use: Peripheral IV = 5 mL Midline or Central Line = 10 mL/lumen For viscous solutions (i.e. blood components, parenteral nutrition, contrast media, or after obtaining blood sample) use: Peripheral IV = 10 mL Midline or Central Line = 20 mL/lumenStart: 08-29-2021 End: 85-72-4238CwakvUJTcsa, at 50 mL/hr, CONTINUOUS, Starting on Mon08/31/21 at 0830Start: 85-16-4694ttrf 5-40 mL intravenously once as needed5-40 mL, IntraVENous, PRN, Starting on Mon08/29/21 at [...] (MOUNJARO) 7.5 mg/0.5 mL pen injector (2 sources)Start: 02-29-2024 End: 80-44-1059awiblhjhjrf (MOUNJARO) 7.5 mg/0.5 mL pen injector Indications: Uncontrolled type 2 diabetes mellitus with hyperglycemia (CMS-HCC) , Type 2 diabetes mellitus with stage 3 chronic kidney disease and hypertension ([facility]) Inject 7.5 mg under the skin every 7 days. 2 mL 6 02/29/2024 04/03/2024 Discontinued (Cost of medication)Start: 17-20-2999mbcpuvbexdq (MOUNJARO) 7.5 mg/0.5 mL pen injector Indications: Uncontrolled type 2 diabetes mellitus with hyperglycemia ([facility]) , Type 2 diabetes mellitus with stage 3 chronic kidney disease and hypertension ([facility]) Inject 7.5 mg under the skin every 7 days. 2 mL 6 02/29/2024 Activevancomycin (VANCOCIN) 2,000 mg in sodium chloride 0.9 % 500 mL IVPB (1 source)Start: 06-03-2022 End: 32,000 mg, IntraVENous, EVERY 12 HOURS, 3 doses, First dose on Mon06/03/22 at 0200, Last dose on Mon06/04/22 at 0200 Antimicrobial Indications: Surgical Prophylaxis Do not give if Creatinine greater than 1.4. Give first dose 12 hours after pre op dose. Post-op Problems Active Problems Problem ClassificationProblemDateDocumented DateEpisodic/ChronicAcute cerebrovascular disease (20 sources)Cerebral embolism; Translations: [Occlusion and stenosis of unspecified cerebral artery]Onset: 33-03-3475OuwtacmIporw myocardial infarction (20 sources)Non-ST elevation (NSTEMI) myocardial infarction; Translations: [Myocardial infarction]Onset: 62-01-0218UxskzhuIcoqova disorders (16 sources)Anxiety; Translations: [Anxiety disorder, unspecified]Onset: 94-22-3983JvkdxtnMldlwwy kidney disease (20 sources)Chronic kidney disease stage 3; Translations: [CKD (chronic kidney disease), stage III]Onset: 414239-56-9844PqtfbmdWxlxnkk kidney disease (4 sources)Chronic kidney disease; Translations: [Chronic kidney disease, stage 3b]Onset: 57-95-3313Fmxidbmrlh heart failure; nonhypertensive (20 sources)Acute heart failure; Translations: [Heart failure, unspecified] Onset: 96-08-7687OepvkzwPaymfaxm atherosclerosis and other heart disease (20 sources)Multi vessel coronary artery disease; Translations: [Atherosclerotic heart disease of [place] coronary artery without angina pectoris]Onset: 66-63-6060UkwnxnpFlbzblrk mellitus with complications (20 sources)Hyperosmolar hyperglycemic coma due to diabetes mellitus without ketoacidosis; Translations: [Type 2 diabetes mellitus with hyperosmolarity with coma]Onset: 33-73-9390CeawkutMtxtiqsy mellitus without complication (5 sources)Type 2 diabetes mellitus without complications; Translations: [Type 2 diabetes mellitus]Onset: 607100-90-5066HgnqokaQuloggdd mellitus without complication (2 sources)Hyperglycemia, unspecified; Translations: [Hyperglycemia]Onset: 002183-42-7152PhgvjkpmLqgaygrnj of lipid metabolism (12 sources)Mixed hyperlipidemia; Translations: [Mixed hyperlipidemia]Onset: 831893-49-3489PfnxhooFpipyxese hypertension (20 sources)Essential hypertension; Translations: [Essential (primary) hypertension]Onset: 83-13-7734MadqfnvSdbbx of unknown origin (20 sources)Fever; Translations: [Fever, unspecified]EpisodicFluid and electrolyte disorders (1 source)Hyperkalemia; Translations: [HYPERKALEMIA]Onset: 05-58-0851Xisqicbe Hypertension with complications and secondary hypertension (20 sources)Hypertensive crisis; Translations: [Hypertensive crisis, unspecified]Onset: 42-37-8088JghwgdqFjskblfpksrez and screening for infectious disease (2 sources)Patient encounter status; Translations: [Encounter for screening for infections with a predominantly sexual mode of transmission]Onset: 12-30-2024 64-54-7708NwobafphHzao disorders (20 sources)Moderate major depression, single episode; Translations: [Major depressive disorder, single episode, moderate]Onset: hronic Nonspecific chest pain (5 sources)Chest pain, unspecified; Translations: [Chest pain, unspecified] Onset: 64-01-6296KczewfruYfoomlfpskl deficiencies (4 sources)Vitamin D deficiency; Translations: [Vitamin D deficiency, unspecified]Onset: 99-42-4924RhngqlmNziem aftercare (1 source)Other long filler cigar roller machine (current) drug therapy; Translations: [OTH [facility] CURRENT DRUG THERAPY]Onset: 35-21-6911TktbvrtmJetep aftercare (3 sources)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; Translations: [snf (current) use of insulin]Onset: 22-64-6696DgirolurFqimd diseases of kidney and ureters (1 source)Disorder of kidney and ureter, unspecified; Translations: [DISORDER KIDNEY AND URETER UNS]Onset: 43-16-1748LxixxrqcWcjey endocrine disorders (20 sources)Hyperparathyroidism; Translations: [Hyperparathyroidism, unspecified]Onset: 41-26-7243UzvzxxrGthsy endocrine disorders (1 source)Hyperparathyroidism, unspecified; Translations: [Hyperparathyroidism, unspecified]Onset: 47-77-5808EwyabnwBpjqh endocrine disorders (20 sources)Primary hyperparathyroidism; Translations: [Primary hyperparathyroidism]Onset: 752002-95-4561CzhtsznNmxoq gastrointestinal disorders (3 sources)Loose stool; Translations: [Other fecal abnormalities]08-09-2024 EpisodicOther gastrointestinal disorders (1 source)Other fecal abnormalities; Translations: [Other fecal abnormalities] Onset: 93-98-7449GpmnohdqPsekp male genital disorders (20 sources)Prolonged erection of penis; Translations: [Priapism, unspecified] Onset: 000303-90-4379ErdripbUhtml male genital disorders (20 sources)Other and unspecified postprocedural erectile dysfunction; Translations: [Impotence of organic origin]Onset: hronic Other nutritional; endocrine; and metabolic disorders (20 sources)Hypercalcemia; Translations: [Hypercalcemia]Onset: 04-00-1701Qdfafdx Other nutritional; endocrine; and metabolic disorders (20 sources)Morbid obesity; Translations: [Morbid (severe) obesity due to excess calories]Onset: 93-81-8901WzvghzeLtwbm nutritional; endocrine; and metabolic disorders (1 source)Hypercalcemia; Translations: [Hypercalcemia]Onset: 43-25-2749Xfndznq Other nutritional; endocrine; and metabolic disorders (1 source)Morbid (severe) obesity due to excess calories; Translations: [Morbid (severe) obesity due to excess calories]Onset: 97-03-1701OouyikvDhdvg nutritional; endocrine; and metabolic disorders (3 sources)Hypocalcemia; Translations: [Hypocalcemia]Onset: 69-55-0257Fbpsino Other nutritional; endocrine; and metabolic disorders (1 source)Severe obesity; Translations: [Class 3 severe obesity due to excess calories with serious comorbidity and body mass index (BMI) of 40.0 to 44.9 in adult ([facility])]58-78-6612HjtvifqUmpke nutritional; endocrine; and metabolic disorders (1 source)Body mass index (BMI) 40.0-44.9, adult; Translations: [Body mass index (BMI) 40.0-44.9, adult]Onset: 28-86-3388LimfmgzLqinh nutritional; endocrine; and metabolic disorders (10 sources)History of primary hyperparathyroidism; Translations: [Personal history of other endocrine, nutritional and metabolic disease]Onset: 05-31-2022 EpisodicOther nutritional; endocrine; and metabolic disorders (10 sources)History of diabetes mellitus type 2; Translations: [Personal history of other endocrine, nutritional and metabolic disease]Onset: 38-23-4280Pdfniosa Other upper respiratory disease (10 sources)Allergic rhinitis; Translations: [Allergic rhinitis, unspecified] Onset: 19-20-8799IuskywyRlgoy upper respiratory disease (3 sources)Allergic rhinitis due to pollen; Translations: [Allergic rhinitis due to pollen]50-12-3716GrobvkaSxxnl upper respiratory disease (1 source)Seasonal allergic rhinitis; Translations: [Other seasonal allergic rhinitis]Onset: 555806-26-5145YvdtadbAkfm-; endo-; and myocarditis; cardiomyopathy (except that caused by tuberculosis or sexually transmitted disease) (20 sources)Dilated cardiomyopathy; Translations: [Dilated cardiomyopathy]Onset: 67-65-8231LsbcksyUioaafbi; pneumothorax; pulmonary collapse (20 sources)Pleural effusion; Translations: [Pleural effusion, not elsewhere classified]EpisodicResidual codes; unclassified (20 sources)Obstructive sleep apnea syndrome; Translations: [Obstructive sleep apnea (adult) (pediatric)]Onset: 54-01-9423XlkuuhoCeiyidrs codes; unclassified (20 sources)Delirium; Translations: [Disorientation, unspecified]Episodic Substance-related disorders (1 source)Nicotine dependence, other tobacco product, uncomplicated; Translations: [NICOTINE DEPEND OTH TOB PROD UNCOMP]Onset: 95-43-6638Oitnufn Unclassified (1 source)CONTACT W/AND (SUSP) EXPOS COVID-19; Translations: [CONTACT W/AND (SUSP) EXPOS COVID-19]Onset: 54-79-0281Oyodjgjnurca (1 source)High Blood Sugar - SymptomaticOnset: 45-04-7772Juesxusywvfv (1 source)High Blood SugarOnset: 49-45-2205Midpzuqqinkl (1 source)Obesity, class 3; Translations: [Obesity, class 3]Onset: 12-30-2024 Unclassified (1 source)est care/ partner tested positive for Trich- needs testedOnset: 12-30-2024 Past or Other Problems Problem ClassificationProblemDateDocumented DateEpisodic/ChronicAcute and unspecified renal failure (20 sources)Acute injury of kidney; Translations: [Acute kidney failure, unspecified]Onset: 21-32-6157UvzoggyuXkrbftxt atherosclerosis and other heart disease (1 source)Presence of aortocoronary bypass graft; Translations: [Presence of aortocoronary bypass graft]Onset: 36-40-8299CpvbgjxmVxxkkusk of mouth; excluding dental (20 sources)Lesion of tongue; Translations: [Other diseases of tongue]Onset: 903557-73-0150YniglqhiHwrdmbhchazwb symptoms and ill-defined conditions (20 sources)Persistent proteinuria; Translations: [Persistent proteinuria, unspecified]Onset: 847393-92-7828BycajqefUdvs disorders (20 sources)Mood disorders; Translations: [Depression, unspecified]Onset: 11-23-2023 Resolved: 198136-92-3494Xpkbi diseases of kidney and ureters (20 sources)Cyst of kidney; Translations: [Cyst of kidney, acquired]Onset: 543742-74-6241QnxdmwtbVndur lower respiratory disease (20 sources)Acute pulmonary edema; Translations: [Acute pulmonary edema]Onset: 42-53-4621EkparpgvHjtsk lower respiratory disease (1 source)Snoring; Translations: [Snoring]28-08-3645CsiqnnnqFdhek skin disorders (1 source)Folliculitis; Translations: [Follicular disorder, unspecified] 99-97-2299JtmpqynmNefu-; endo-; and myocarditis; cardiomyopathy (except that caused by tuberculosis or sexually transmitted disease) (20 sources)Pericardial effusion; Translations: [Pericardial effusion (noninflammatory)]Onset: 15-22-1151NqdbuzaiXkfawjxsa (except that caused by tuberculosis or sexually transmitted disease) (20 sources)Pneumonia due to Staphylococcus aureus; Translations: [Pneumonia due to Methicillin susceptible Staphylococcus aureus]Onset: 62-35-5738Dtrjseys Residual codes; unclassified (2 sources)Other specified postprocedural states; Translations: [Other specified postprocedural states]Onset: 78-44-2602FjvhafbfVdeprnialul failure; insufficiency; arrest (adult) (20 sources)Acute respiratory failure; Translations: [Acute respiratory failure, unspecified whether with hypoxia or hypercapnia]Onset: 94-89-9409Jqqidclt Septicemia (except in labor) (20 sources)Sepsis due to Streptococcus; Translations: [Streptococcal sepsis, unspecified]Onset: 80-72-0721CowryroqHogazxccwwrt (20 sources)Onset: 11-23-2023 Resolved: Viral infection (20 sources)Disease due to Rhinovirus; Translations: [Other viral infections of unspecified site]Onset: 14-67-3487Mfwffsgt Results Test NameValueInterpretationReference RangeFacilityCHLAMYDIA/GONORRHOEAE BY PCR, URINEon 68-85-4068FPOGWZNYO/GONORRHOEAE BY PCR, URINEGONORRHOEAE PCR, U Negative Neisseria gonorrhoeae not detected by nucleic acid amplification. This does not exclude the possibility of infection because results are dependent on adequate specimen collection. CHLAMYDIA PCR, U Negative Chlamydia trachomatis not detected by nucleic acid amplification. This does not exclude the possibility of infection because results are dependent on adequate specimen collection.[facility] PPGComment on above: Performed By: #### CGUPCR #### [facility] ([facility]) [address] [place] [address] VIRTRICHOMONAS BY PCRon [id number] BY PCRTRICHOMONAS PCR Not Detected Trichomonas vaginalis not detected. Assay methodology is nucleic acid amplification by real-time PCR for detection of Trichomonas vaginalis DNA performed on [employer] GeneXpert Instrument System. [facility] PPGComment on above:Performed By: #### TRKPCR #### [facility] ([facility]) [address] [place] [address] VIROrders Onlyon 68-81-1315Ihmfte [id number] Elias Walker 1985 Date Provider Department Center 12/13/2024 [id number] [facility] ENDOCR [facility] Family History Problem Relation Age of Onset Diabetes Mother Mental illness Mother Family Status - Relation Status Age at Mother AliveNormalUniOur Lady of [facility]36on [id number] called in, [facility] got the script for t wiliam Trulicity 3mg, but will not fill it until after 12/16/24 because the note says to start on the , can you change the start date for the Trulicity 3mg to a sooner date? [facility]37on 03-07-851506Mwnhca contact the office for test results in [...] 75-kg (or 165-pound) person, and engage in resistance/endurance exercises regularly. While on sGLT2 inhibitor Invokana??? [...] requiring fasting to minimize the risk of ketoacidosis.NormalHolzer Medical Center – JacksonCBC WITH AUTO DIFFERENTIALon 47-42-4656TJBCJYBJC ABSOLUTE COUNT (10*3/UL) BY AUTOMATED COUNT0.0 10*3/uLNormal0.0-0.2[facility] HospitalComment on above:Performed By: #### CBCA #### [facility] ([facility]) [address] [place] [address] VIRBASOPHILS RELATIVE PERCENT BY AUTOMATED COUNT0.4 %Normal [facility]itus Medical CenterComment on above:Performed By: #### CBCA #### [facility] ([facility]) [address] [place] [address] VIRCELLAVISION DIFFERENTIAL TYPEAUTOMATED DIFFERENTIALNormal [facility]itus Medical CenterComment on above:Performed By: #### CBCA #### [facility] ([facility]) [address] [place] [address] VIREosinophils (Bld) [#/Vol]0.1 10*3/uLNormal0.0-0.4[facility] HospitalComment on above:Performed By: #### CBCA #### [facility] ([facility]) [address] [place] [address] VIREOSINOPHILS RELATIVE PERCENT BY AUTOMATED COUNT0.8 %Normal [facility]enas HospitalComment on above:Performed By: #### CBCA #### [facility] ([facility]) [address] [place] [address] VIRErythrocyte distribution width (RBC) [Ratio]13.9 %Normal 11.5-15[facility] HospitalComment on above:Performed By: #### CBCA #### [facility] ([facility]) [address] [place] [address] VIRHematocrit (Bld) [Volume fraction]48.8 %Skdpno24-66PesLarudl [facility] HospitalComment on above:Performed By: #### CBCA #### [facility] ([facility]) [address] [place] [address] VIRHemoglobin (Bld) [Mass/Vol]16.1 g/rSUzxazw69-20McfKvtory [facility] HospitalComment on above:Performed By: #### CBCA #### [facility] ([facility]) [address] [place] [address] VIRLYMPHOCYTES ABSOLUTE COUNT (10*3/UL) BY AUTOMATED COUNT2.5 10*3/uLNormal1.0-3.5Pro[facility] Springs HospitalComment on above:Performed By: #### CBCA #### [facility] ([facility]) [address] [place] [address] VIRLYMPHOCYTES RELATIVE PERCENT BY AUTOMATED COUNT31.7 %Normal [facility] HospitalComment on above:Performed By: #### CBCA #### [facility] ([facility]) [address] [place] [address] VIRMCH (RBC) [Entitic mass]28.7 htHeaejj15-95FkmLzykvf [facility] HospitalComment on above:Performed By: #### CBCA #### [facility] ([facility]) [address] [place] [address] VIRMCHC (RBC) [Mass/Vol]32.9 g/dSJfmxmc51-05MnsUveekq [place] HospitalComment on above:Performed By: #### CBCA #### [facility] ([facility]) [address] [place] [address] VIRMCV (RBC) [Entitic vol]87 vCEcudfi11-965HcuZjkgng [place] HospitalComment on above:Performed By: #### CBCA #### [facility] ([facility]) [address] [place] [address] VIRMONOCYTES ABSOLUTE COUNT (10*3/UL) BY AUTOMATED COUNT0.8 10*3/uLNormal0.0-0.9ProUniversity Hospitals Lake [facility] Medical Center HospitalComment on above:Performed By: #### CBCA #### [facility] ([facility]) [address] [place] [address] VIRMONOCYTES RELATIVE PERCENT BY AUTOMATED COUNT9.8 %Normal ProMSelect Medical [facility] HospitalComment on above:Performed By: #### CBCA #### [facility] ([facility]) [address] [place] [address] VIRNEUTROPHILS ABSOLUTE COUNT BY AUTOMATED COUNT4.6 10*3/uL Normal1.5-6.6ProUniversity Hospitals Lake West Medical Center HospitalComment on above:Performed By: #### CBCA #### [facility] ([facility]) [address] [place] [address] VIRNEUTROPHILS RELATIVE PERCENT BY AUTOMATED COUNT57.3 %Normal ProMSelect Medical [facility], [facility] HospitalComment on above:Performed By: #### CBCA #### [facility] ([facility]) [address] [place] [address] VIRPlatelet mean volume (Bld) [Entitic vol]9.1 fLNormal7-12 ProMSelect Medical Cleveland Clinic [facility] Hospital, [facility] HospitalComment on above:Performed By: #### CBCA #### [facility] ([facility]) [address] [place] [address] VIRPlatelets (Bld) [#/Vol]203 10*3/fPOifxzj027-655OaeLrdhvv [place] HospitalComment on above:Performed By: #### CBCA #### [facility] ([facility]) [address] [place] [address] VIRRBC COUNT5.59 X10E12/LNormal4.1-5.7Pro[facility] Comment on above:Performed By: #### CBCA #### [facility] ([facility]) [address] [place] [address] VIRWBC (Bld) [#/Vol]7.9 10*3/uLNormal4-11ProEast [place] Regional HospitalComment on above:Performed By: #### CBCA #### [facility] ([facility]) [address] [place] [address] VIRCREATININE, SERUMon 45-92-9633Uxzfhpnpsy [Mass/Vol]2.90 mg/dLHigh0.60-1.30ProEast [place] Regional HospitalComment on above:Result Comment: METHOD TRACEABLE TO IDMS STANDARDPerformed By: #### BUNCHER OPERATOR #### [facility] ([facility]) [address] [place] [address] VIRGFR/1.73 sq M.predicted among non-blacks MDRD (S/P/Bld) [Vol rate/Area]27 mL/min/{1.73_m2}Low>=60ProEast [place] Regional HospitalComment on above: Result Comment: Reported eGFR is based on the CKD-EPI 2020 equation that does not use a race coefficient.Performed By: #### BUNCHER OPERATOR #### [facility] ([facility]) [address] [place] [address] VIRFollow-Upon 51-05-6202Retxhs-[id number] BrandinElias 1985 M Date Provider Department Center 11/14/2024 316-JACOB UGARTE [facility] ENDOCR [facility] Family History Problem Relation Age of Onset Diabetes Mother Mental illness Mother Family Status - Relation Status Age at Mother Alive Level of Service:25317 DC OFFICE/OUTPATIENT ESTABLISHED MOD MDM 30 [facility] CenterLIPID PROFILEon 07-82-8776Qygzldywvdt [Mass/Vol]150 mg/kQVvqoot453-729PdzYkoprk [place] HospitalComment on above: Performed By: #### LIPR #### [facility] ([facility]) [address] [place] [address] VIRCholesterol in HDL [Mass/Vol]29 mg/dLLow>39ProEast [place] Regional HospitalComment on above:Result Comment: HDL <40 mg/dL - High Risk HDL > or = 40mg/dL- Desirable HDL >60 mg/dL - Negative RiskPerformed By: #### LIPR #### [facility] ([facility]) [address] [place] [address] VIRCholesterol in LDL [Mass/Vol]72 mg/dLNormal<130ProEast [place] Regional HospitalComment on above:Result Comment: LDL <100 mg/dL - Desirable LDL >160 mg/dL - High RiskPerformed By: #### LIPR #### [facility] ([facility]) [address] [place] [address] VIRCHOLESTEROL:HDL5.2High1.0-5.0[facility] Comment on above:Performed By: #### LIPR #### [facility] ([facility]) [address] [place] [address] VIRTriglyceride [Mass/Vol]244 mg/xSVhun92-717MiwCdtaog [place] HospitalComment on above:Performed By: #### LIPR #### [facility] ([facility]) [address] [place] [address] VIRVERY LOW FBFXMPPLFOK84 mg/dLHigh0-30ProUniversity Hospitals Lake West Medical Center HospitalComment on above:Performed By: #### LIPR #### [facility] ([facility]) [address] [place] [address] VIRPOCT Hemoglobin A1con 01-38-6660AbP2x (Bld) [Mass fraction] 10 %Abnormal4 - 7 %[facility] SystemInterpretation and review of laboratory resultsAbnoEncompass Health Rehabilitation Hospital of Erie37on 50-23-026643Qqvosj contact the office for test results in [...] 75-kg (or 165-pound) person, and engage in resistance/endurance exercises regularly.NormalUnSelect Medical Specialty Hospital - ColumbusCOMPREHENSIVE METABOLIC PANELon 84-83-3800Axrfffi [Mass/Vol]4.1 g/dLNormal 3.2-5.3[facility] HospitalComment on above:Performed By: #### [facility], [address]- 9, 2777-1, 37686-7 #### [facility] ([id number]) [address], [address] [place], [place] [address]NZA [Catalytic activity/Vol]78 U/TIovlks45-550RgjVjcoqk [facility]arcenas HospitalComment on above:Performed By: #### DARLENE, 64556-5, 2776-, 01960-7 #### [facility] ([id number]) [address], [address] [place], [place] [address]FTY [Catalytic activity/Vol]30 U/LNormal0-40Pro[facility] HospitalComment on above:Performed By: #### DARLENE, 91069-2, 2776-, 27140-4 #### [facility] ([id number]) [address], [address] [place], [place] [address]Mtseq gap [Moles/Vol]7 mmol/LNormal5-15[facility] Comment on above:Performed By: #### DARLENE, , 2776-03, 95596-6 #### [facility] ([id number]) [address], [address] [place], [place] [address]JXR [Catalytic activity/Vol]20 U/LNormal0-41Pro[facility]ica [facility] HospitalComment on above:Performed By: #### DARLENE, , 2776-, 88585-1 #### [facility] ([id number]) [address], [address] [place], [place] [address]Gadoaqacp [Mass/Vol]0.9 mg/dLNormal0.3-1.2ProMedica [facility]enas HospitalComment on above:Performed By: #### DARLENE, 81317-8, 2776-, 33958-1 #### [facility] ([id number]) [address], [address] [place], [place] [address]Mwyhhhv [Mass/Vol]9.2 mg/dLNormal8.5-10.5ProMedica [facility]arcenas HospitalComment on above:Performed By: #### DARLENE, , 2776-03, 23321-0 #### [facility] ([id number]) [address], [address] [place], [place] [address]Cgjswdij [Moles/Vol]104 mmol/VGdnwiy79-248LdmJfstsd [place] HospitalComment on above:Performed By: #### DARLENE, , 2776-, 69495-3 #### [facility] ([id number]) [address], [address] [place], [place] [address]DD1 [Moles/Vol]27 mmol/ZZgdnnr25-50IiyUispquMercy Health St[facility] Comment on above:Performed By: #### DARLENE, , 2776-03, 15577-4 #### [facility] ([id number]) [address], [address] [place], [place] [address]Xwgwcozgpd [Mass/Vol]2.17 mg/dLHigh0.60-1.30ProEast [place] Regional HospitalComment on above:Result Comment: METHOD TRACEABLE TO IDMS STANDARD Performed By: #### DARLENE, , 2776-03, 42680-3 #### [facility] ([id number]) [address], [address] [place], [place] [address]YKE/1.73 sq M.predicted among non-blacks MDRD (S/P/Bld) [Vol rate/Area]39 mL/min/{1.73_m2}Low>59ProEast [place] Regional HospitalComment on above: Result Comment: Reported eGFR is based on the CKD-EPI 1 equation that does not use a race coefficient.Performed By: #### DARLENE, , 2776-, 55680-5 #### [facility] ([id number]) [address], [address] [place], [place] [address]Ybhtvvw [Mass/Vol]220 mg/fDRlmz21-32RqvSzptosFisher-Titus Medical Center Comment on above:Performed By: #### DARLENE, , 2776-, 96171-3 #### [facility] ([id number]) [address], [address] [place], [place] [address]Ezijvcszi [Moles/Vol]4.9 mmol/LNormal3.5-5.0ProUniversity Hospitals Lake West Medical Center HospitalComment on above:Performed By: #### CMP, 81784-7, 2777-1, 00565-2 #### [facility] ([id number]) [address], [address] [place], [place] [address]Mbmfjtr [Mass/Vol]8.1 g/dLHigh6.0-8.0ProUniversity Hospitals [facility] Hospital Comment on above:Performed By: #### DARLENE, 94109-0, 2777-, 67394-6 #### [facility] ([id number]) [address], [address] [place], [place] [address]Ztaijn [Moles/Vol]138 mmol/QVkwwog793-477JbmUjfmcn [place] HospitalComment on above:Performed By: #### DARLENE, 95964-0, 2777-, 60665-3 #### [facility] ([id number]) [address], [address] [place], [place] [address]Pbey nitrogen [Mass/Vol]34 mg/dLHigh5-23ProEast [place] [facility] HospitalComment on above:Performed By: #### DARLENE, 73442-2, 2777-1, 92211-3 #### [facility] ([id number]) [address], [address] [place], [place] [address]Necmez-Pasf 30-53-1316Hnzyvs-[id number] Elias Walker 1985 M Date Provider Department Center 03/20/2024 316-SHANELJACOB [facility] ENDOCR [facility] Family History Problem Relation Age of Onset Diabetes Mother Mental illness Mother Family Status - Relation Status Age at Mother Alive Level of Service:65094 DC OFFICE/OP CONSLTJ NEW/EST PT LOW MDM 30 MINUTES Reason for Visit and Comments: Follow-up [953639]NormalUnSelect Medical Specialty Hospital - ColumbusMAGNESIUMon 02-51-0332Mdrhfyhhv [Mass/Vol]2.0 mg/dLNormal1.8-2.6[facility] Comment on above:Performed By: #### DARLENE, 95790-9, 2777-1, 96742-3 #### [facility] ([id number]) [address], [address] [place], [place] [address]IIWOUUVEQQyc 62-69-6089Xunafzgem [Mass/Vol]3.6 mg/dLNormal 2.4-4.9ProEast [place] Regional HospitalComment on above:Performed By: #### DARLENE, 94553- 9, 2777-1, 96547-0 #### [facility] ([id number]) [address], [address] [place], [place] [address]Jxrlquu D+Metabolites [Mass/Vol]on 37-96-1757TOABXHV D 25 HYD TOT22.4 ng/uHJpy99-138JrsOcurxrEast Ohio Regional HospitalComment on above:Result Comment: Vitamin D status 25 [place] Vitamin D Deficiency <20 ng/mL Insufficiency 20-29 ng/mL Sufficiency 30-100 ng/mL Toxicity >100 ng/mL NOTE: A pediatric reference range has not been established by the regulatory coordinator of this kit. The [place] [employer] recommends a Vitamin D level of = or >20ng/mL in infants and children.Performed By: #### DARLENE, 98311-3, 2777-1, 40850-8 #### [facility] ([id number]) [address] [place], [place] [address]XARO Hemoglobin A1con 23-62-0076QpN2x (Bld) [Mass fraction]8.4 % Abnormal4 - 7 %ProMedicM [facility] SystemInterpretation and review of laboratory resultsAbnormalProTogus Va Medical CenterProBarnesville Hospital SystemAmbulatory referral to Diabetic Educationon 60-78-9924GybFrjoeeDetwiler Memorial Hospital AND AUTO DIFFon 85-43-9319RVODPYUW BASOPHIL0.1 X10E9/LNormal0.0-0.2PBlanchard Valley Health [facility] Comment on above:Performed By: #### CBCA, CMP #### [facility] ([id number]) [address] [place] [address]UKROKAGB NEUTROPHIL3.8 X10E9/LNormal1.5-6.6[facility] HospitalComment on above:Performed By: #### CBCA, CMP #### [facility] ([id number]) [address] [place] [address]Syuvcqtun/100 WBC (Bld)0.8 %NormalMercy Health Willard Hospital Comment on above:Performed By: #### CBCA, CMP #### [facility] ([id number]) [address] [place] [address]Dwloethkaja (Bld) [#/Vol]0.1 10*3/uLNormal0.0-0.4[facility] HospitalComment on above:Performed By: #### CBCA, CMP #### [facility] ([id number]) [address] [place] [address]Iajfycnispl/100 WBC (Bld)1.3 %NormalMercy Health Willard Hospital Comment on above:Performed By: #### CBCA, CMP #### [facility] ([id number]) [address] [place] [address]Nozehxsbscp distribution width (RBC) [Ratio]14.1 %Normal 11.5-15.0Mer[facility] Willard HospitalComment on above:Performed By: #### CBCA, CMP #### [facility] ([id number]) [address] [place] [address]Qahzebvbtb (Bld) [Volume fraction]47.2 %Mgpxln53-58TvcUnelpvMercy Health Willard HospitalComment on above:Performed By: #### CBCA, CMP #### [facility] ([id number]) [address] [place] [address]Seleqdxiwi (Bld) [Mass/Vol]15.5 g/gISjgigi82.0-17.0Mer[facility] HospitalComment on above:Performed By: #### CBCA, CMP #### [facility] ([id number]) [address] [place] [address]Pxisxjtrlzj (Bld) [#/Vol]2.4 10*3/uLNormal1.0-3.5PBlanchard Valley Health System Blanchard Valley HospitalComment on above:Performed By: #### CBCA, CMP #### [facility] ([id number]) [address] [place] [address]Faqhgrgdhhk/100 WBC (Bld)33.9 %NormalProHendrick Medical Center Brownwood Comment on above:Performed By: #### CBCA, CMP #### [facility] ([id number]) [address] [place] [address]JOJ (RBC) [Entitic mass]29.1 wyKvqhrx85-98VkcJzqyeqMercy Health Willard HospitalComment on above:Performed By: #### CBCA, CMP #### [facility] ([id number]) [address] [place] [address]XKNP (RBC) [Mass/Vol]32.8 g/jJAqoguc60-37XorWeedrvHendrick Medical Center BrownwoodComment on above:Performed By: #### CBCA, CMP #### [facility] ([id number]) [address] [place] [address]OXM (RBC) [Entitic vol]89 uAZsqljo27-549CwfGuyyha [facility]remont HospitalComment on above:Performed By: #### CBCA, CMP #### [facility] ([id number]) [address] [place] [address], [place] [address]Cepddklzt (Bld) [#/Vol]0.7 10*3/uLNormal0-0.9Mer[facility] Will[facility] HospitalComment on above:Performed By: #### CBCA, CMP #### [facility] ([id number]) [address] [place] [address], [place] [address]Jpczhseed/100 WBC (Bld)10.1 %[facility] Comment on above:Performed By: #### CBCA, CMP #### [facility] ([id number]) [address] [place] [address]Gycpnbaczkx/100 WBC (Bld)53.9 %[facility] Comment on above:Performed By: #### CBCA, CMP #### [facility] ([id number]) [address] [place] [address], [place] [address]Cqzmyyoj mean volume (Bld) [Entitic vol]8.8 fLNormal7-12 [facility] HospitalComment on above:Performed By: #### CBCA, CMP #### [facility] ([id number]) [address] [place] [address], [place] [address]Urpyznybp (Bld) [#/Vol]236 10*3/mXXgegxv632-916KhjJscwqk [facility] HospitalComment on above:Performed By: #### CBCA, CMP #### [facility] ([id number]) [address] [place] [address], [place] [address]CKA COUNT5.31 X10E12/LNormal4.10-5.70[facility] Comment on above:Performed By: #### CBCA, CMP #### [facility] ([id number]) [address] [place] [address]NQL (Bld) [#/Vol]7.1 10*3/uLNormal4.0-11.0Mer[facility] Willard HospitalComment on above:Performed By: #### CBCLeslie, CMP #### [facility] ([id number]) [address] [place] [address], [place] [address]PZVXMEJOOYZGB METABOLIC PANELon 42-09-5710Escbgyt [Mass/Vol]4.1 g/dLNormal3.2-5.3PBlanchard Valley Health System Blanchard Valley HospitalComment on above:Performed By: #### CBCLeslie, CMP #### [facility] ([id number]) [address] [place] [address], [place] [address]GGZ [Catalytic activity/Vol]102 U/HVjefzm31-472PjqZbqcbzHendrick Medical Center BrownwoodComment on above:Performed By: #### JUAN M, CMP #### [facility] ([id number]) [address] [place] [address], [place] [address]JVC [Catalytic activity/Vol]43 U/LHigh0-40ProHendrick Medical Center BrownwoodComment on above:Performed By: #### CBCLeslie, CMP #### [facility] ([id number]) [address] [place] [address], [place] [address]Gauuf gap [Moles/Vol]9 mmol/LNormal5-15ProHendrick Medical Center BrownwoodComment on above:Performed By: #### CBCLeslie, CMP #### [facility] ([id number]) [address] [place] [address], [place] [address]DQZ [Catalytic activity/Vol]23 U/LNormal0-41ProHendrick Medical Center BrownwoodComment on above:Performed By: #### CBCLeslie, CMP #### [facility] ([id number]) [address] [place] [address], [place] [address]Qhasxpmmd [Mass/Vol]0.8 mg/dLNormal0.3-1.2PBlanchard Valley Health System Blanchard Valley HospitalComment on above:Performed By: #### CBCLeslie, CMP #### [facility] ([id number]) [address] [place] [address], [place] [address]Btdxfok [Mass/Vol]8.4 mg/dLLow8.5-10.5PBlanchard Valley Health System [facility] HospitalComment on above:Performed By: #### JUAN M, CMP #### [facility] [place] ([id number]) [address] [place] [address], [place] [address]Ktjntewl [Moles/Vol]107 mmol/IDlvcxa13-587CwdWwgkqeHendrick Medical Center BrownwoodComment on above:Performed By: #### JUAN M, CMP #### [facility] [place] ([id number]) [address] [place] [address], [place] [address]KE8 [Moles/Vol]22 mmol/KVzmpfd06-81VmgUcdrzlBlanchard Valley Health System [facility] Comment on above:Performed By: #### JUAN M, CMP #### [facility] [place] ([id number]) [address] [place] [id number] [Mass/Vol]2.18 mg/dLHigh0.70-1.20Mer[facility] Willard HospitalComment on above:Result Comment: METHOD TRACEABLE TO IDMS STANDARD Performed By: #### JUAN M, CMP #### [facility] [place] ([id number]) [address] [place] [address]ROJ/1.73 sq M.predicted among non-blacks MDRD (S/P/Bld) [Vol rate/Area]39 mL/min/{1.73_m2}Low>59ProHendrick Medical Center BrownwoodComment on above: Result Comment: Reported eGFR is based on the CKD-EPI 2020 equation that does not use a race coefficient.Performed By: #### JUAN M, CMP #### [facility] [place] ([id number]) [address] [place] [address]Hnuvupt [Mass/Vol]270 mg/lCDsgr66-60XhwCddulqMercy Health [facility]ard Hospital Comment on above:Performed By: #### JUAN M, CMP #### [facility] [place] ([id number]) [address] [place] [address]Rqjplxpst [Moles/Vol]4.9 mmol/LNormal3.5-5.0ProHendrick Medical Center BrownwoodComment on above:Performed By: #### JUAN M, CMP #### [facility] [place] ([id number]) [address] [place] [address]Ijjfalc [Mass/Vol]7.9 g/dLNormal6.0-8.0ProHendrick Medical Center BrownwoodComment on above:Performed By: #### JUAN M, CMP #### [facility] [place] ([id number]) [address] [place] [place] [address]871Bmydtz [Moles/Vol]138 mmol/UZfhvlk646-932IxcMycstm Fremont HospitalComment on above:Performed By: #### JUAN M, CMP #### [facility] [place] ([id number]) [address] [place] [address] 71850Vnot nitrogen [Mass/Vol]36 mg/dLHigh5-23ProHendrick Medical Center BrownwoodComment on above:Performed By: #### JUAN M, CMP #### [facility] [place] ([id number]) [address] [place] [address] 667[address]Nehttdw Glucometer (BldC) [Mass/Vol]on 66-05-5481Sgmdoua [Mass/Vol]181 mg/mHPidq01-44QiqSsjbkfMercy Health Willard HospitalGlucose [Mass/Vol]283 mg/xLRqor97-69RikPumedpMercy Health Willard HospitalLipid 1996 panelon 08-31-0834Wrlhygkkqug [Mass/Vol]166 mg/cECkalhq486-699SduEkrbuh [place] HospitalComment on above: Performed By: #### 58557-2 #### [facility] ([id number]) [address], [address] [place], [place] [address]Kfqibyuvxmi in HDL [Mass/Vol]31 mg/dLLow>39ProUniversity Hospitals Lake West Medical Center HospitalComment on above:Result Comment: HDL <40 mg/dL - High Risk HDL > or = 40mg/dL- Desirable HDL >60 mg/dL - Negative Risk Performed By: #### 91836-5 #### [facility] ([id number]) [address], [address] [place], [place] [address]Bhzlykehapd in LDL [Mass/Vol]89 mg/dLNormal<130ProMediSelect Medical Specialty Hospital - Cincinnati North HospitalComment on above:Result Comment: LDL <100 mg/dL - Desirable LDL >160 mg/dL - High Risk Performed By: #### 11017-6 #### [facility] ([id number]) [address], [address] [place], [place] [address]Mljybffqbyy in VLDL [Mass/Vol]46 mg/dLHigh0-30ProUniversity Hospitals Lake West Medical Center HospitalComment on above:Performed By: #### 28978-7 #### [facility] ([id number]) [address], [address] [place], [place] [address]XDQIGBOCKAY:HDL5.4High1.0-5.0ProUniversity Hospitals Lake West Medical Center HospitalComment on above:Performed By: #### 12366-3 #### [facility] ([id number]) [address], [address] [place], [place] [address]Cuqbnjmtrmdg [Mass/Vol]232 mg/tQCvrg63-488RutOgmsot [place] HospitalComment on above:Performed By: #### 05208-2 #### [facility] ([id number]) [address], [address] [place], [place] [address]EHEX Hemoglobin A1con 57-13-4501QuR0p (Bld) [Mass fraction]7.5 g/dLAbnormal4 - 7 g/dLPike Community HospitalInterpretation and review of laboratory resultsAbnoEncompass Health Rehabilitation Hospital of ErieAlbumin on 72-94-7093Elmrqoa [Mass/Vol]4.0 g/dLNormal3.5-5.2MercSaint Mary's HospitalComment on above:Performed By: #### ALB, BMP, ESEQUIEL, CBC #### [address] [place] [id number] ( Antique Refinisher: Sony Rinaldi MD #### PTHNCA #### [address] [address] Antique Refinisher: Mike Pereyrapsychiatric Metabolic Profon 28-95-4572Gwpnv gap [Moles/Vol]11 mmol/LNormal9-17[facility] South CampusComment on above:Performed By: #### ALB, BMP, ESEQUIEL, CBC #### [address] [place] [address] Antique Refinisher: Sony Rinaldi MD #### PTHNCA #### [address] [address] Antique Refinisher: Vincent Sy MDBUN/CRE Fmjsc80Mppzyt1-57Wcuyz [facility] Comment on above:Performed By: #### ALB, BMP, ESEQUIEL, CBC #### [address] [place] [address]83 Antique Refinisher: Sony Rinaldi MD #### PTHNCA #### [address] [address] Antique Refinisher: MELLY Pereyraalcium [Mass/Vol]9.5 mg/dLNormal8.6-10.4[facility] South CampusComment on above:Performed By: #### ALB, BMP, ESEQUIEL, CBC #### [address] [place] 8809183 Antique Refinisher: Sony Rinaldi MD #### PTHNCA #### [place] [address] [place] [address] Antique Refinisher: MELLY Pereyrahloride [Moles/Vol]106 mmol/CJdxofv70-540ZqcxlFirelands Regional Medical Center South CampusComment on above:Performed By: #### ALB, BMP, ESEQUIEL, CBC #### [address] [place] 8809183 Antique Refinisher: Sony Rinaldi MD #### PTHNCA #### [place] 2649208 Antique Refinisher: MELLY PereyraO2 [Moles/Vol]22 mmol/TFoaxzo22-10KsdbxFirelands Regional Medical Center South CampusComment on above:Performed By: #### ALB, BMP, ESEQUIEL, CBC #### [address] [place] 8809183 Antique Refinisher: Sony Rinaldi MD #### PTHNCA #### [place] 2[address] Antique Refinisher: MELLY Pereyrareatinine [Mass/Vol]2.0 mg/dLHigh0.7-1.2[facility] HospitalComment on above:Performed By: #### ALB, BMP, ESEQUIEL, CBC #### [address] [place] 8809183 Antique Refinisher: Sony Rinaldi MD #### PTHNCA #### [address] [place] [address] Antique Refinisher: Vincent Sy MDGFR/1.73 sq M.predicted among non-blacks MDRD (S/P/Bld) [Vol rate/Area]43 mL/min/{1.73_m2}Low>60[facility] South CampusComment on above:Result Comment: These results are not intended for [...] or following therapy that affects renal tubular secretion.Performed By: #### ALB, BMP, ESEQUIEL, CBC #### [address] [place] [phone] Antique Refinisher: Sony Rinaldi MD #### PTHNCA #### [address] [phone] Antique Refinisher: Vincent Sy MDGlucose [Mass/Vol]181 mg/kRBbqr76-64EyjteKing's Daughters Medical Center OhioComment on above:Performed By: #### ALB, BMP, ESEQUIEL, CBC #### [address] [place] 8809183 Antique Refinisher: Sony Rinaldi MD #### PTHNCA #### [address] [address] Antique Refinisher: Syl Pereyrassium [Moles/Vol]4.8 mmol/LNormal3.7-5.3 [facility] South CampusComment on above:Performed By: #### ALB, BMP, ESEQUIEL, CBC #### [address] [place] 8809183 Antique Refinisher: Sony Rinaldi MD #### PTHNCA #### [address] [phone] Antique Refinisher: LISA Pereyraodium [Moles/Vol]139 mmol/BWbbxyr878-957Qmlay Tiffin HospitalComment on above:Performed By: #### ALB, BMP, ESEQUIEL, CBC #### [address] [place] [address] Antique Refinisher: Sony Rinaldi MD #### PTHNCA #### [address] [address] Antique Refinisher: Vincent Sy MDUrea nitrogen [Mass/Vol]29 mg/dLHigh6-20[facility] South CampusComment on above:Performed By: #### ALB, BMP, ESEQUIEL, CBC #### [address] [place] 006[address]83 Antique Refinisher: Sony Rinaldi MD #### PTHNCA #### [address] [address] Antique Refinisher: MELLY Pereyraastrid 39-64-0498Upjsuvtzcls distribution width (RBC) [Ratio]14.2 %Vuhoex25.8-14.4[facility] South CampusComment on above: Performed By: #### ALB, BMP, ESEQUIEL, CBC #### [address] [place] [address] Antique Refinisher: Sony Rinaldi MD #### PTHNCA #### [address] [address] Antique Refinisher: Vincent Sy MDHematocrit (Bld) [Volume fraction]49.9 %Normal 40.7-50.3[facility] HospitalComment on above:Performed By: #### ALB, BMP, ESEQUIEL, CBC #### [address] [place] 0062983 Antique Refinisher: Sony Rinaldi MD #### PTHNCA #### [address] [address] Antique Refinisher: Vincent Sy MDHemoglobin (Bld) [Mass/Vol]16.3 g/dLNormal 13.0-17.0[facility] South CampusComment on above:Performed By: #### ALB, BMP, ESEQUIEL, CBC #### [address] [place] 8809183 Antique Refinisher: Sony Rinaldi MD #### PTHNCA #### [place] 2649208 Antique Refinisher: JODEE PereyraCH (RBC) [Entitic mass]28.7 nkLsjrfk28.2-33.5 [facility] HospitalComment on above:Performed By: #### ALB, BMP, ESEQUIEL, CBC #### [address] [place] 8809183 Antique Refinisher: Sony Rinaldi MD #### PTHNCA #### [place] [address] Antique Refinisher: JENS PereyraC (RBC) [Mass/Vol]32.7 g/uISzegcp64.4-34.8 [facility] South CampusComment on above:Performed By: #### ALB, BMP, ESEQUIEL, CBC #### [address] [place] [address] Antique Refinisher: Sony Rinaldi MD #### PTHNCA #### [place] [address] Antique Refinisher: TOOTIE Pereyra (RBC) [Entitic vol]88.0 kUCozruh80.6-102.9 [facility] South CampusComment on above:Performed By: #### ALB, BMP, ESEQUIEL, CBC #### [address] [place] [address] Antique Refinisher: Sony Rinaldi MD #### PTHNCA #### [place] 2649208 Antique Refinisher: Vincent Sy MDNRBC Automated0.0 per 100 WBCNormal0.0[facility] South CampusComment on above:Performed By: #### ALB, BMP, ESEQUIEL, CBC #### [address] [place] [address] Antique Refinisher: Sony Rinaldi MD #### PTHNCA #### [address] [address] Antique Refinisher: Jeffrey Pereyra mean volume (Bld) [Entitic vol]10.7 fL Normal8.1-13.5[facility] South CampusComment on above:Performed By: #### ALB, BMP, ESEQUIEL, CBC #### [address] [place] [address] Antique Refinisher: Sony Rinaldi MD #### PTHNCA #### [place] [address] Antique Refinisher: Sol Pereyrateerasmo (Bld) [#/Vol]230 10*3/qFIsjjzo272-616 [facility] CampusComment on above:Performed By: #### ALB, BMP, ESEQUIEL, CBC #### [address] [place] [address] Antique Refinisher: Sony Rinaldi MD #### PTHNCA #### [place] [address] Antique Refinisher: Vincent Sy MDRBC (Bld) [#/Vol]5.67 10*6/uLNormal4.21-5.77 [facility] CampusComment on above:Performed By: #### ALB, BMP, ESEQUIEL, CBC #### [address] [place], [place] 4778783 Antique Refinisher: Sony Rinaldi MD #### PTHNCA #### [address] [address] Antique Refinisher: Vincent Sy MDWBC (Bld) [#/Vol]7.2 10*3/uLNormal3.5-11.3Mer[facility] HospitalComment on above:Performed By: #### ALB, BMP, ESEQUIEL, CBC #### [address] [place] [address] Antique Refinisher: Sony Rinaldi MD #### PTHNCA #### [address] [address] Antique Refinisher: SIMEON Pereyra, Intacton 64-95-9255VFP, Ixgirq18.0 pg/mL Huvyxc50-42GahrsSilver Hill HospitalComment on above:Performed By: #### UTPHO, UTK, UTCA #### [address] [address] Antique Refinisher: Vincent Sy MD [address] [place] [address] Antique Refinisher: Sony Rinaldi MD #### UTTP, UTCRE #### [address] [place] [address]83 Antique Refinisher: DOLLY Shayhosphorus, Inorg.on 87-29-1869Cdejnqykqg, Inorg. 3.4 mg/dLNormal2.5-4.5[facility] South CampusComment on above:Performed By: #### ALB, BMP, ESEQUIEL, CBC #### [address] [place] [address]83 Antique Refinisher: Sony Rinaldi MD #### PTHNCA #### [address] [address] Antique Refinisher: DOLLY Pereyrarotein,Tot,[place] Uron 85-14-6351Dltjjnmceo [Mass/Vol]53.3 mg/cEUpsujp43.0-259.0[facility] South CampusComment on above: Performed By: #### URTPRT #### [address] [place] [address] Antique Refinisher: Krystal Shayt Prot. Conc.57 mg/dLNormShelby Memorial Hospital Comment on above:Result Comment: No normal range established.Performed By: #### URTPRT #### [facility] [address] [place], [place] 3398783 Antique Refinisher: JURGEN Shay/Cre Ratio1.10Tfuq6.00-0.20[facility] Comment on above:Performed By: #### URTPRT #### [facility] [address] [place], [place] 6[address] Antique Refinisher: ANIYAH Shay Hemoglobin A1con 12-71-9866FoN3x (Bld) [Mass fraction]8.2 g/dLAbnormal4 - 7 g/dLPike Community HospitalInterpretation and review of laboratory resultsAbnormalProTogus Va Medical CenterProBarnesville Hospital SystemALT No additional P-5'-P [Catalytic activity/Vol]on 59-74-4060QSO [Catalytic activity/Vol]52 U/LHigh0-40[facility] HospitalComment on above:Performed By: #### 1744-2, 1919-10, 2156-08, 27407-0 #### [facility] ([id number]) [address] [place], [place] [address]EPLmd 58-25-2004TXE [Catalytic activity/Vol]32 U/LNormal0-41 [facility] HospitalComment on above:Performed By: #### 1744-2, 1919-10, 2156-08, 66660-7 #### [facility] ([id number]) [address] [place], [place] [address]JM [Catalytic activity/Vol]on 06-16-3156LKQ82 U/XCferfv48-470 [facility] HospitalComment on above:Performed By: #### 1744-2, 1919-10, 2156-08, 86301-0 #### [facility] ([id number]) [address] [place], [place] [address]Dgqrk 1996 panelon 54-37-6661Lvtedlwwogs [Mass/Vol]140 mg/dLLow 150-200ProHendrick Medical Center BrownwoodComment on above:Performed By: #### 1744-2, 1919-10, 2156-08, 07789-6 #### [facility] ([id number]) [address] [place], [place] [address]Qppwvabvscw in HDL [Mass/Vol]35 mg/dLLow>39ProHendrick Medical Center BrownwoodComment on above:Result Comment: HDL <40 mg/dL - High Risk HDL > or = 40mg/dL- Desirable HDL >60 mg/dL - Negative Risk Performed By: #### 1744-2, 1919-10, 2156-08, #### [facility] ([id number]) [address] [place], [place] [address]Khmuodipokr in LDL [Mass/Vol]62 mg/dLNormal<130ProHendrick Medical Center BrownwoodComment on above:Result Comment: LDL <100 mg/dL - Desirable LDL >160 mg/dL - High Risk Performed By: #### 1744-2, 1919-10, 2156-08, #### [facility] ([id number]) [address] [place], [place] [address]Zdlzunzfcdi in VLDL [Mass/Vol]43 mg/dLHigh0-30ProHendrick Medical Center BrownwoodComment on above:Performed By: #### 1744-2, 1919-10, 2156-08, #### [facility] ([id number]) [address], [address] [place], [place] [address]MDSNABZHADY:HDL4.9Jcldde1.0-5.0ProHendrick Medical Center BrownwoodComment on above:Performed By: #### 1744-2, 1919-10, 2156-08, 18951-0 #### [facility] ([id number]) [address], [address] [place], [place] [address]Hojuuhkaksra [Mass/Vol]213 mg/zCCyfh12-318ZvkFbjyckHendrick Medical Center BrownwoodComment on above:Performed By: #### 1744-2, 1919-10, 2156-08, 74812-4 #### [facility] ([id number]) [address], [address] [place], [place] [address]HHFF Hemoglobin A1con 45-16-8588EkG2o (Bld) [Mass fraction]7.3 g/dLAbnormal4 - 7 g/dLPike Community HospitalInterpretation and review of laboratory resultsAbnormalProTogus Va Medical CenterProBarnesville Hospital SystemCalcium, Ionicon 79-78-1286Juzarqm [Moles/Vol]1.25 mmol/LNormal1.13-1.33MerSilver Hill HospitalComment on above:Performed By: #### INEZ MAYES UTCA #### [facility] [employer] [address] [place] [address] Antique Refinisher: Vincent Sy MD [facility] [address] [place] [address] Antique Refinisher: Sony Rinaldi MD #### ZITA JACOBSON #### [facility] [address] [place] [address] Antique Refinisher: Sony Rinaldi MDLipid Profileon 11-51-9480Tubxuolumbg [Mass/Vol] 216 mg/dLHigh<200Mercy [facility]iden HospitalComment on above:Result Comment: Cholesterol Guidelines: <200 Desirable 200-240 Borderline >240 UndesirablePerformed By: #### UTPHO, UTK, UTCA #### [facility] [address] [place] [address] Antique Refinisher: Vincent Sy MD [address] [place], [place] [address]33[address]83 Antique Refinisher: Sony Rinaldi MD #### UTMEHRAN, UTCRE #### [address] [place], [place] 1127283 Antique Refinisher: Sony Rinaldi MDCholesterol in HDL [Mass/Vol]44 mg/dLNormal>40 [facility] South CampusComment on above:Result Comment: HDL Guidelines: <40 Undesirable 40-59 Borderline >59 DesirablePerformed By: #### UTPSOPHIA, BERENICEK, UTCA #### [address] [address] Antique Refinisher: Vincent Sy MD [address] [place], [place] 1148083 Antique Refinisher: Sony Rinaldi MD #### KVAON, BERENICECRE #### [address] [place], [place] 7146283 Antique Refinisher: MELLY Shayholesterol in LDL [Mass/Vol]113 mg/dLNormal0-130 [facility] South CampusComment on above:Result Comment: LDL Guidelines: <100 Desirable 100-129 Near to/above Desirable 130-159 Borderline >159 Undesirable Direct (measured) LDL and calculated LDL are not interchangeable tests.Performed By: #### UTPHO, BERENICEK, UTCA #### [facility] [address] [place] [address] Antique Refinisher: Vincent Sy MD [address] [place], [place] 618[address]83 Antique Refinisher: Sony Rinaldi MD #### KAVON, UTCRE #### [address] [place] [address] Antique Refinisher: MELLY Shayholesterol.total/Cholesterol in HDL [Mass ratio] 4.9 {ratio}Normal<5MerSilver Hill HospitalComment on above:Performed By: #### INEZ MAYES, UTCA #### [facility] [address] [place] [address] Antique Refinisher: Vincent Sy MD [address] [place] [address] Antique Refinisher: Sony Rinaldi MD #### EBRENICE JACOBSONCRE #### [address] [place] [address] Antique Refinisher: Sony Rinaldi MDTriglyceride [Mass/Vol]296 mg/dLHigh<150[facility] HospitalComment on above:Result Comment: Triglyceride Guidelines: <150 Desirable 150-199 Borderline 200-499 High >499 Very high Based on AHA Guidelines for fasting triglyceride, December 2011.Performed By: #### INEZ MAYES, UTCA #### [employer] [address] [place] [address] Antique Refinisher: Vincent Sy MD [address] [place] [address] Antique Refinisher: Sony Rinaldi MD #### BERENICE JACOBSONCRE #### [address] [place] [address] Antique Refinisher: Sony Rinaldi [facility], Intacton 58-63-03[address]BWN, Ktdnav670.4 pg/mLHigh 14.0-72.0[facility] Valley HospitalComment on above:Result Comment: SAMPLES FROM PATIENTS ROUTINELY RECEIVING HIGH DOSE BIOTIN THERAPY MAY SHOW FALSELY DEPRESSED RESULTS. ADDITIONAL INFORMATION MAY BE REQUIRED FOR DIAGNOSIS.Performed By: #### INEZ MAYES, UTCA #### [employer] [address] [place] [address] Antique Refinisher: Vincent Sy MD [address] [place] [address] Antique Refinisher: Sony Rinaldi MD #### UTMEHRAN, UTCRE #### [address] [place] [address] Antique Refinisher: Daniel Shay 31-52-9438GTS [Catalytic activity/Vol]47 U/L High<40[facility] South CampusComment on above:Performed By: #### UTPHO, UTK, UTCA #### [facility] [address] [place] [address] Antique Refinisher: Vincent Sy MD [address] [place] [address] Antique Refinisher: Sony Rinaldi MD #### UTMEHRAN, UTCRE #### [address] [place] [address] Antique Refinisher: Tim Shay Metabolic Profon 54-34-4731Omiur gap [Moles/Vol]12 mmol/LNormal9-17[facility] South CampusComment on above:Performed By: #### UTPHO, UTK, UTCA #### [address] [address] Antique Refinisher: Vincent Sy MD [address] [place] [address] Antique Refinisher: Sony Rinaldi MD #### UTMEHRAN, UTCRE #### [address] [place] [address] Antique Refinisher: Sony Rinladi MDBUN/CRE Elehj74Xdoths2-46Ddilv [facility] Comment on above:Performed By: #### UTPHO, UTK, UTCA #### [facility] [address] [place] [address] Antique Refinisher: Vincent Sy MD [address] [place] [address] Antique Refinisher: Sony Rinaldi MD #### UTMEHRAN, UTCRE #### [address] [place], [place] 1685483 Antique Refinisher: MELLY Shayalcium [Mass/Vol]8.9 mg/dLNormal8.6-10.4[facility] Center South CampusComment on above:Performed By: #### UTPHO, UTK, UTCA #### [facility] [address] [place] [address] Antique Refinisher: Vincent Sy MD [address] [place], [place] 3724383 Antique Refinisher: Sony Rinaldi MD #### UTMEHRAN, UTCRE #### [address] [place], [place] 7399283 Antique Refinisher: MELLY Shayhloride [Moles/Vol]105 mmol/IIadbal04-640Tfgha [facility] HospitalComment on above:Performed By: #### UTPHO, UTK, UTCA #### [facility] [address] [place] [address] Antique Refinisher: Vincent Sy MD [address] [place] [address] Antique Refinisher: Sony Rinaldi MD #### KAVON, UTCRE #### [address] [place] [address] Antique Refinisher: Sony Rinaldi MDCO2 [Moles/Vol]23 mmol/CCfujqj29-94HdnmiFirelands Regional Medical Center South CampusComment on above:Performed By: #### UTPHO, UTK, UTCA #### [facility] [address] [place] [address] Antique Refinisher: Vincent Sy MD [address] [place], [place] 0136183 Antique Refinisher: Sony Rinaldi MD #### UTTP, UTCRE #### [address] [place], [place] 44[address]83 Antique Refinisher: MELLY Shayreatinine [Mass/Vol]2.2 mg/dLHigh0.7-1.2[facility] HospitalComment on above:Performed By: #### UTPHO, UTK, UTCA #### [facility] [address] [place] [address] Antique Refinisher: Vincent Sy MD [address] [place] [address] Antique Refinisher: Sony Rinaldi MD #### UTMEHRAN, UTCRE #### [address] [place], [place] 9384083 Antique Refinisher: Sony Rinaldi MDGFR/1.73 sq M.predicted among non-blacks MDRD (S/P/Bld) [Vol rate/Area]38 mL/min/{1.73_m2}Low>60[facility] HospitalComment on above:Result Comment: These results are not intended for [...] or following therapy that affects renal tubular secretion.Performed By: #### UTPBERENCIE CORTESK, UTCA #### [facility] [address] [place] [address] Antique Refinisher: Vincent Sy MD [address] [place], [place] 4987683 Antique Refinisher: Sony Rinaldi MD #### UTMEHRAN, UTCRE #### [address] [place], [place] 27[address]83 Antique Refinisher: Sony Rinaldi MDGlucose [Mass/Vol]174 mg/qSNchi86-86Unaeb [facility] Valley HospitalComment on above:Performed By: #### INEZ MAYES, UTCA #### [facility] [address] [place] [address] Antique Refinisher: Vincent Sy MD [address] [place], [place] 33[address] Antique Refinisher: Sony Rinaldi MD #### KAVON, UTCRE #### [address] [place] [address] Antique Refinisher: DOLLY Shayotassium [Moles/Vol]4.5 mmol/LNormal3.7-5.3Mercy Meriden HospitalComment on above:Performed By: #### INEZ MAYES, UTCA #### [address] [address] Antique Refinisher: Vincent Sy MD [address] [place] [address] Antique Refinisher: Sony Rinaldi MD #### KAVON, BERENICECRE #### [address] [place] [address] Antique Refinisher: LISA Shayodium [Moles/Vol]140 mmol/XIwisol515-678Onydd Connecticut Valley HospitalComment on above:Performed By: #### INEZ MAYES, UTCA #### [facility] [address] [place] [address] Antique Refinisher: Vincent Sy MD [address] [place] [address] Antique Refinisher: Sony Rinaldi MD #### UTMEHRAN, UTCRE #### [address] [place] [address] Antique Refinisher: Sony Rinaldi MDUrea nitrogen [Mass/Vol]30 mg/dLHigh6-20Mer[facility]iden HospitalComment on above:Performed By: #### UTPHO, UTK, UTCA #### [facility] [address] [place] [address] Antique Refinisher: Vincent Sy MD [address] [place] [address] Antique Refinisher: Sony Rinaldi MD #### UTTP, UTCRE #### [address] [place] [address] Antique Refinisher: MELLY Shayreatine Kinaseon 25-72-4811IP [Catalytic activity/Vol]110 U/BCkmxcj74-243DukcnFirelands Regional Medical Center South CampusComment on above:Performed By: #### UTPHO, UTK, UTCA #### [address] [address] Antique Refinisher: Vincent Sy MD [address] [place] [address] Antique Refinisher: Sony Rinaldi MD #### UTMEHRAN, UTCRE #### [address] [place] [address] Antique Refinisher: DOLLY Shayrotein,Tot,[place] Uron 12-09-8356Xznmbwqqld [Mass/Vol]104.4 mg/cVPkefki85.0-259.0[facility] Center South CampusComment on above: Performed By: #### UTPHO, UTK, UTCA #### [place] [address] [place] [address] Antique Refinisher: Vincent Sy MD [address] [place] [address] Antique Refinisher: Sony Rinaldi MD #### UTTP, UTCRE #### [address] [place] [address] Antique Refinisher: Sony Rinaldi MDTot Prot. Conc.163 mg/dLNoBerger HospitalComment on above:Result Comment: No normal range established.Performed By: #### UTPBERENICE CORTESK, UTCA #### [facility] [address] [place] [address] Antique Refinisher: Vincent Sy MD [address] [place] [address] Antique Refinisher: Sony Rinaldi MD #### KAVON, UTCRE #### [address] [place] [address] Antique Refinisher: Sony Rinaldi MDTP/Cre Ratio1.75Ldyf4.00-0.20[facility] Comment on above:Performed By: #### INEZ MAYES, UTCA #### [facility] [employer] [address] [place] [address] Antique Refinisher: Vincent Sy MD [address] [place] [address] Antique Refinisher: Sony Rinaldi MD #### KAVON, UTCRE #### [address] [place] [address] Antique Refinisher: Sony Rinaldi MDHemoglobin A1Con 99-89-4226Eqqlotm [Mass/Vol]103 mg/dLNoBerger HospitalComment on above:Result Comment: The ADA and AACC recommend providing the estimated average glucose result to permit better patient understanding of their HBA1c result.Performed By: #### UTPBERENICE CORTESK, UTCA #### [facility] Hospital[facility] [address] [place] [address] Antique Refinisher: Vincent Sy MD [address] [place] [address] Antique Refinisher: Sony Rinaldi MD #### KAVON, UTCRE #### [address] [place] [address] Antique Refinisher: Sony Rinaldi MDHbA1c (Bld) [Mass fraction]5.2 %Normal4.0-6.0[facility] South CampusComment on above:Performed By: #### INEZ MAYES, UTCA #### [facility] [address] [place] [address] Antique Refinisher: Vincent Sy MD [address] [place] [address] Antique Refinisher: Sony Rinaldi MD #### KAVON, BERENICECRE #### [address] [place] [address] Antique Refinisher: Sony Rinaldi [facility], [place] 88-59-1324UVQ, Vaitck535.6 pg/mLHigh 14.0-72.0[facility] South CampusComment on above:Result Comment: SAMPLES FROM PATIENTS ROUTINELY RECEIVING HIGH DOSE BIOTIN THERAPY MAY SHOW FALSELY DEPRESSED RESULTS. ADDITIONAL INFORMATION MAY BE REQUIRED FOR DIAGNOSIS.Performed By: #### INEZ MAYES, UTCA #### [facility] [address] [place] [address] Antique Refinisher: Vincent Sy MD [address] [place] [address] Antique Refinisher: Sony Rinaldi MD #### KAVON, UTCRE #### [address] [place] [address] Antique Refinisher: Sony Rinaldi MDVitamin D 25 OHon 97-55-2387Nesiokg D 25 OH21.6 ng/mLLow>29.9[facility] CampusComment on above:Result Comment: Reference Range: Vitamin D status Range Deficiency <20 ng/mL Mild Deficiency 20-30 ng/mL Sufficiency 30-100 ng/mL Toxicity >100 ng/mLPerformed By: #### INEZ MAYES, UTCA #### [facility] [address] [place] [address] Antique Refinisher: Vincent Sy MD [address] [place] [address] Antique Refinisher: Sony Rinaldi MD #### UTTP, UTCRE #### [address] [place], [place] [address]83 Antique Refinisher: Sony Rinaldi MDAlbuminon 47-01-5318Rwtaodq [Mass/Vol]4.3 g/dL Normal3.5-5.2MKing's Daughters Medical Center OhioComment on above:Performed By: #### UTPHO, UTK, UTCA #### [facility] [address] [place] [address] Antique Refinisher: Vincent Sy MD [address] [place] [address] Antique Refinisher: Sony Rinaldi MD #### KAVON, UTCRE #### [address] [place], [facility]83 Antique Refinisher: Sony Rinaldi MDBasic Metabolic Profon 28-56-2939Doptu gap [Moles/Vol]11 mmol/LNormal9-17[facility] CampusComment on above:Performed By: #### UTPHO, UTK, UTCA #### [facility] [address] [place] [address] Antique Refinisher: Vincent Sy MD [address] [place], [facility]83 Antique Refinisher: Sony Rinaldi MD #### UTTP, UTCRE #### [address] [place] [address] Antique Refinisher: Sony Rinaldi MDBUN/CRE Xvafw74Scanmj4-53Tfivn [facility] Comment on above:Performed By: #### UTPHO, UTK, UTCA #### [facility] [address] [place] [address] Antique Refinisher: Vincent Sy MD [address] [place] [address] Antique Refinisher: Sony Rinaldi MD #### UTTP, UTCRE #### [address] [place], [place] 9828783 Antique Refinisher: MELLY Shayalcium [Mass/Vol]11.1 mg/dLHigh8.6-10.4[facility] CampusComment on above:Performed By: #### UTPHO, UTK, UTCA #### [facility] [address] [place] [address] Antique Refinisher: Vincent Sy MD [address] [place] [address] Antique Refinisher: Sony Rinaldi MD #### UTMEHRAN, UTCRE #### [address] [place] [address] Antique Refinisher: MELLY Shayhloride [Moles/Vol]110 mmol/WPryp51-471RtmurFirelands Regional Medical Center South CampusComment on above:Performed By: #### UTPHO, UTK, UTCA #### [facility] [address] [place] [address] Antique Refinisher: Vincent Sy MD [address] [place] [address] Antique Refinisher: Sony Rinaldi MD #### UTTP, UTCRE #### [address] [place] [address] Antique Refinisher: MELLY ShayO2 [Moles/Vol]23 mmol/LYbhnrj09-15UjsavFirelands Regional Medical Center South CampusComment on above:Performed By: #### UTPHO, UTK, UTCA #### [facility] [address] [place] [address] Antique Refinisher: Vincent Sy MD [address] [place], [place] 2211583 Antique Refinisher: Sony Rinaldi MD #### UTMEHRAN, UTCRE #### [address] [place], [place] 7818183 Antique Refinisher: MELLY Shayreatinine [Mass/Vol]2.1 mg/dLHigh0.7-1.2[facility] HospitalComment on above:Performed By: #### UTPBERENICE CORTESK, UTCA #### [facility] [address] [place] [address] Antique Refinisher: Vincent Sy MD [address] [place], [place] 6086183 Antique Refinisher: Sony Rinaldi MD #### UTMEHRAN, UTCRE #### [address] [place] [id number] Antique Refinisher: Sony Rinaldi MDGFR/1.73 sq M.predicted among non-blacks MDRD (S/P/Bld) [Vol rate/Area]41 mL/min/{1.73_m2}Low>60[facility] HospitalComment on above:Result Comment: These results are not intended for [...] or following therapy that affects renal tubular secretion.Performed By: #### UTPBERENICE CORTESK, UTCA #### [facility] [address] [place] [address] Antique Refinisher: Vincent Sy MD [address] [place], [place] 1977683 Antique Refinisher: Sony Rinaldi MD #### UTMEHRAN, UTCRE #### [address] [place] 4398983 Antique Refinisher: Sony Rinaldi MDGlucose [Mass/Vol]116 mg/gKAogk13-52AednoKing's Daughters Medical Center OhioComment on above:Performed By: #### BERENICE MAYESK, UTCA #### [facility] [address] [place] [address] Antique Refinisher: Vincent Sy MD [address] [place] [address] Antique Refinisher: Sony Rinaldi MD #### UTMEHRAN, UTCRE #### [address] [place] [address] Antique Refinisher: DOLLY Shayotassium [Moles/Vol]4.5 mmol/LNormal3.7-5.3[facility] HospitalComment on above:Performed By: #### INEZ MAYES, UTCA #### [facility] [address] [place] [address] Antique Refinisher: Vincent Sy MD [address] [place] [address] Antique Refinisher: Sony Rinaldi MD #### KAVON, UTCRE #### [address] [place] [address] Antique Refinisher: LISA Shayodium [Moles/Vol]144 mmol/IOsanro806-508Iqguw Connecticut Valley HospitalComment on above:Performed By: #### UTPBERENICE CORTESK, UTCA #### [facility] [address] [place] [address] Antique Refinisher: Vincent Sy MD [address] [place] [address] Antique Refinisher: Sony Rinaldi MD #### UTTP, UTCRE #### [address] [place] [address] Antique Refinisher: Sony Rinaldi MDUrea nitrogen [Mass/Vol]30 mg/dLHigh6-20[facility] CampusComment on above:Performed By: #### UTPHO, UTK, UTCA #### [facility] [address] [place] [address] Antique Refinisher: Vincent Sy MD [address] [place] [address] Antique Refinisher: Sony Rinaldi MD #### UTTP, UTCRE #### [address] [place] [address] Antique Refinisher: Chinmay Shay 70-75-3622Aaareyynpmw distribution width (RBC) [Ratio]17.2 %High11.8-14.4[facility] CampusComment on above:Performed By: #### SUGEY, BERENICEK, UTCA #### [address] [address] Antique Refinisher: Vincent Sy MD [address] [place] [address] Antique Refinisher: Sony Rinaldi MD #### UTMEHRAN, UTCRE #### [address] [place] [address] Antique Refinisher: Sony Rinaldi MDHematocrit (Bld) [Volume fraction]53.6 %High 40.7-50.3MKing's Daughters Medical Center OhioComment on above:Performed By: #### UTPHO, UTK, UTCA #### [facility] [address] [place] [address] Antique Refinisher: Vincent Sy MD [address] [place], [place] 7749483 Antique Refinisher: Sony Rinaldi MD #### UTTP, UTCRE #### [address] [place], [place] 2943483 Antique Refinisher: Sony Rinaldi MDHemoglobin (Bld) [Mass/Vol]17.2 g/iSBjsy49.0-17.0 [facility] CampusComment on above:Performed By: #### UTPHO, UTK, UTCA #### [facility] [address] [place] [address] Antique Refinisher: Vincent Sy MD [address] [place], [place] 5935683 Antique Refinisher: Sony Rinaldi MD #### UTTP, UTCRE #### [address] [place], [place] 9414383 Antique Refinisher: JODEE ShayCH (RBC) [Entitic mass]27.2 prQqypco84.2-33.5 [facility] CampusComment on above:Performed By: #### UTPSOPHIA, UTK, UTCA #### [facility] [address] [place] [address] Antique Refinisher: Vincent Sy MD [address] [place] [address] Antique Refinisher: Sony Rinaldi MD #### UTMEHRAN, UTCRE #### [address] [place], [place] 5[address]4583 Antique Refinisher: JENS ShayC (RBC) [Mass/Vol]32.1 g/eNLzqahw13.4-34.8[facility] CampusComment on above:Performed By: #### UTPHO, UTK, UTCA #### [facility] [address] [place] [address] Antique Refinisher: Vincent Sy MD [address] [place], [place] 3244583 Antique Refinisher: Sony Rinaldi MD #### UTTP, UTCRE #### [address] [place], [place] 5576283 Antique Refinisher: JODEE ShayCV (RBC) [Entitic vol]84.7 iQGdwtfr91.6-102.9 [facility] South CampusCompontiac general hospital on above:Performed By: #### BERENICE MAYESK, UTCA #### [facility] [address] [place] [address] Antique Refinisher: Vincent Sy MD [address] [place] [address] Antique Refinisher: Sony Rinaldi MD #### KAVON, BERENICECRE #### [address] [place] [address] Antique Refinisher: Sony Rinaldi MDNRBC Automated0.0 per 100 WBCNormal0.0[facility] South CampusCompontiac general hospital on above:Performed By: #### INEZ MAYES, UTCA #### [facility] [address] [place] [address] Antique Refinisher: Vincent Sy MD [address] [place] [address] Antique Refinisher: Sony Rinaldi MD #### KAVON, ZITA #### [address] [place] [address] Antique Refinisher: Jeffrey Shay mean volume (Bld) [Entitic vol]9.5 fL Normal8.1-13.5[facility] on above:Performed By: #### SUGEY, BERENICEK, UTCA #### [facility] [address] [place] [address] Antique Refinisher: Vincent Sy MD [address] [place] [address] Antique Refinisher: Sony Rinaldi MD #### KAVON, BERENICECRE #### [address] [place] [address] Antique Refinisher: Thu Shay (d) [#/Vol]280 10*3/lUEowpaa657-752 [facility] CampusComment on above:Performed By: #### UTPHO, UTK, UTCA #### [facility] [address] [place] [address] Antique Refinisher: Vincent Sy MD [address] [place] [address] Antique Refinisher: Sony Rinaldi MD #### UTTP, UTCRE #### [address] [place] [address] Antique Refinisher: PETE Shay ([facility]) [#/Vol]6.33 10*6/uLHigh4.21-5.77[facility] CampusComment on above:Performed By: #### UTPHO, UTK, UTCA #### [facility] [address] [place] [address] Antique Refinisher: Vincent Sy MD [address] [place] [address] Antique Refinisher: Sony Rinaldi MD #### UTTP, UTCRE #### [address] [place] [address] Antique Refinisher: RADHA Shay ([facility]) [#/Vol]8.9 10*3/uLNormal3.5-11.3MKing's Daughters Medical Center OhioComment on above:Performed By: #### UTPHO, UTK, UTCA #### [facility] [address] [place] [address] Antique Refinisher: Vincent Sy MD [address] [place] [address] Antique Refinisher: Sony Rinaldi MD #### UTTP, UTCRE #### [address] [place], [place] 8800483 Antique Refinisher: Dania Shaysphorus, Inorg.on 75-99-4272Qwladotelb, Inorg. 2.8 mg/dLNormal2.5-4.5[facility] CampusComment on above:Performed By: #### UTPHO, UTK, UTCA #### [facility] [address] [place] [address] Antique Refinisher: Vincent Sy MD [address] [place] [address] Antique Refinisher: Sony Rinaldi MD #### UTTP, UTCRE #### [address] [place] [address] Antique Refinisher: DOLLY Shayrotein,Tot,[place] Uron 98-22-9871Uitphewhtm [Mass/Vol]91.1 mg/jWNhmbrq56.0-259.0[facility] CampusComment on above: Performed By: #### UTPHO, UTK, UTCA #### [facility] [employer] [address] [place] [address] Antique Refinisher: Vincent Sy MD [address] [place] [address] Antique Refinisher: Sony Rinaldi MD #### UTMEHRAN, UTCRE #### [address] [place], [facility]83 Antique Refinisher: Sony Rinaldi MDTot Prot. Conc.185 mg/dLNormalFirelands Regional Medical Center South CampusComment on above:Result Comment: No normal range established.Performed By: #### UTPHO, UTK, UTCA #### [employer] [address] [place] [address] Antique Refinisher: Vincent Sy MD [address] [place] [address] Antique Refinisher: Sony Rinaldi MD #### UTTP, UTCRE #### [facility] [address] [place] [address] Antique Refinisher: Sony Rinaldi MDTP/Cre Ratio2.61Vnga4.00-0.20[facility] Comment on above:Performed By: #### UTPHO, UTK, UTCA #### [facility] [address] [place], [place] 6676[address] Antique Refinisher: Vincent Sy MD [facility] [address] [place] [address] [place] [address] Antique Refinisher: Sony Rinaldi MD #### KAVON, UTCRE #### [address] [place] [address] Antique Refinisher: Sony Rinaldi MDUS BIOPSY RENAL LEFT PERCon 81-00-4556EX BIOPSY RENAL LEFT PERCEXAMINATION: ULTRASOUND GUIDED KIDNEY BIOPSY 10/21/2022 9:44 am [...] Signed by: Juma Zuñiga MD 10/21/22 Final resultNoCleveland Clinic Children's Hospital for RehabilitationUS GUIDED NEEDLE PLACEMENTon 07-81-9979VM GUIDED NEEDLE PLACEMENTEXAMINATION: ULTRASOUND GUIDED KIDNEY BIOPSY 10/21/2022 9:44 am [...] Signed by: Juma Zuñiga MD 10/21/22 Final resultNormalChillicothe VA Medical Center 65-43-6635jANV Coag (Bld) [Time]20.7 sLow23.0-36.5Ohio State Health SystemComment on above: Result Comment: IV Heparin Therapy Range: 66.0-92.0 secPerformed By: #### BMP, MG, CBC, PT, PTT #### [facility] [address] [place] [address] Antique Refinisher: Vincent Sy [facility] EASTMarc 58-22-0935QXU Coag (PPP) [Relative time]0.9 {INR}NormalOhio State Health SystemComment on above:Result Comment: Therapeutic Range: Moderate Anticoagulant Intensity: INR = 2.0-3.0 High Anticoagulant Intensity: INR = 2.5-3.5Performed By: #### BMP, MG, CBC, PT, PTT #### [facility] [address] [place], [place] 2292908 Antique Refinisher: LALO Pereyra Coag (PPP) [Time]12.3 sIyajps94.7-14.9Ohio State Health SystemComment on above:Performed By: #### BMP, MG, CBC, PT, PTT #### [facility] [address] [place], [place] [address]24[address] Antique Refinisher: DOLLY Pereyralatelet Counton 13-11-4188Mdgubfoks (Bld) [#/Vol]203 10*3/fYOhtblk136-062AwhdhOhio State Health SystemComment on above: Performed By: #### BMP, MG, CBC, PT, PTT #### [facility] [address] [place] [address] Antique Refinisher: LISA Pereyraurgical Pathologyon 73-06-2078Omjkaful Pathology(NOTE) Path Number: [id number] -- Diagnosis -- Left kidney, biopsy forwarded to [facility] for processing and interpretation. Paul Piper M.D. Electronically Signed Out tb03/13/2010/24/2022 Clinical Information Pre-op Diagnosis: CKD 3, KIDNEY FUSION, HIGH PROTEIN IN URINE, CREATININE 2.1; BUN 14; PT 12.3, PTT 20.7, INR 0.9 Operative Findings: LEFT KIDNEY tm Source of Specimen A: LEFT KIDNEY BIOPSY SENT [facility] TO [facility] Intraoperative Diagnosis Episode #1: 3 cores, recommend additional. Episode #2: 1 core, adequate. (RDD) RDD Gross Description ELIAS WALKER, UNDESIGNATED Biopsies are examined at the time of biopsy for assessment of adequacy by Dr. Paul Piper. Four cores, 5-14 mm long and < 1 mm diameter. The specimen is subdivided and placed into appropriate transport medium and sent out [facility] in [place], [place]. Gross only. Ds tm RDD/tb1:10/24/2022 Microscopic Description Microscopic examination performed. Processing Lab: [address] [address] Interpretation Performed at [address] [phone] SURGICAL PATHOLOGY CONSULTATION Patient Name: ELIAS WALKER Rec: [id number] [facility] ANATOMIC PATHOLOGY [address] [place], [place] [id number] NoCleveland Clinic Children's Hospital for RehabilitationCalcium,Timed Uron 24-02-5494Oxcuist [Mass/Vol]8.9 mg/dLNormShelby Memorial HospitalComment on above:Performed By: #### BERENICE MAYESK, UTCA #### [address] 2168[address] Antique Refinisher: Vincent Sy MD [address] [place] [address] Antique Refinisher: Sony Rinaldi MD #### UTMEHRAN, UTCRE #### [address] [place] [address] Antique Refinisher: MELLY Shayalcsean Excreted,Ur231 mg/24 lXfzluu28-345RlsseFirelands Regional Medical Center South CampusComment on above:Performed By: #### UTPBERENICE CORTESK, UTCA #### [address] [address] Antique Refinisher: Vincent Sy MD [address] [place] [address] Antique Refinisher: Sony Rinaldi MD #### UTTP, UTCRE #### [address] [place] [address] Antique Refinisher: Sony Rinaldi MDPhos,Inorg,Timed Uron 70-00-5924Mcmq,Inorg,conc,Ur 43.1 mg/dLNormalFirelands Regional Medical Center South CampusComment on above:Performed By: #### UTPHO, UTK, UTCA #### [place] [address] [place] [address] Antique Refinisher: Vincent Sy MD [address] [place] [address] Antique Refinisher: Sony Rinaldi MD #### UTTP, UTCRE #### [address] [place] [address] Antique Refinisher: DOLLY Shayhos,Inorg,Excret,Wa[address] mg/24 hSfpyat969-8507 [facility] South CampusComment on above:Performed By: #### UTPSOPHIA, UTK, UTCA #### [address] [address] Antique Refinisher: Vincent Sy MD [address] [place] [address] Antique Refinisher: Sony Rinaldi MD #### UTTP, UTCRE #### [address] [place] [address] Antique Refinisher: Syl Shayssium,Timed Uron 55-90-1817Ljjisjjbn [Moles/Vol]21.4 mmol/LNormalFirelands Regional Medical Center South CampusComment on above:Result Comment: No normal range established.Performed By: #### UTPHO, UTK, UTCA #### [address] [address] Antique Refinisher: Vincent Sy MD [address] [place] [address] Antique Refinisher: Sony Rinaldi MD #### UTTP, UTCRE #### [address] [place] [address] Antique Refinisher: DOLLY Shayotassium Excreted,Ur56 mmol/24 pAhrmhk04-606JzwozFirelands Regional Medical Center South CampusComment on above:Performed By: #### UTPHO, UTK, UTCA #### [address] [address] Antique Refinisher: Vincent Sy MD [address] [place] [address] Antique Refinisher: Sony Rinaldi MD #### UTTP, UTCRE #### [address] [place] [address] Antique Refinisher: Maximo Shay, Timed Uron 04-93-8982Pmhqutrcfw [Mass/Vol]68.8 mg/dLNormalFirelands Regional Medical Center South CampusComment on above:Performed By: #### UTPHO, UTK, UTCA #### [address] [address] Antique Refinisher: Vincent Sy MD [address] [place] [address] Antique Refinisher: Sony Rinaldi MD #### UTTP, UTCRE #### [address] [place], [place] [address] Antique Refinisher: MELLY Shyareatinine Fcjbqwss3804 mg/24 fXdvjjs8710-5775 [facility] South CampusComment on above:Performed By: #### UTPHO, UTK, UTCA #### [address] [address] Antique Refinisher: Vincent Sy MD [address] [place], [place] [address] Antique Refinisher: Sony Rinaldi MD #### UTTP, UTCRE #### [address] [place] [address] Antique Refinisher: Snoy Rinaldi MDVolume of Udkhntyavg[address] John Medical CenterComment on above:Performed By: #### UTPHO, UTK, UTCA #### [facility] [address] [place] [address] Antique Refinisher: Vincent Sy MD [address] [place] [address] Antique Refinisher: Sony Rinaldi MD #### UTTP, UTCRE #### [address] [place] [address] Antique Refinisher: Sony Rinaldi MDFour Corners Regional Health Center nmpfzdwfy01 [facility] Comment on above:Performed By: #### UTPHO, UTK, UTCA #### [facility] [address] [place] [address] Antique Refinisher: Vincent Sy MD [address] [place] [address] Antique Refinisher: Sony Rinaldi MD #### UTTP, UTCRE #### [address] [place] [address] Antique Refinisher: Sony Rinaldi, MDProtein,Tot,Timed Uron 10-06-2022 Protein,Tot,conc,Ur123 mg/dLNoBerger HospitalComment on above: Performed By: #### UTPHO, UTK, UTCA #### [facility] [address] [place] [address] Antique Refinisher: Vincent Sy MD [address] [place] [address] Antique Refinisher: Sony Rinaldi MD #### UTTP, UTCRE #### [address] [place], [place] 1854683 Antique Refinisher: Sony Sturtz, MDProtein,Tot,Excret,Js1163 mg/24 hHigh<151[facility] HospitalComment on above:Performed By: #### UTPSOPHIA, UTK, UTCA #### [facility] [address] [place] [address] Antique Refinisher: Vincent Sy MD [address] [place], [place] 222[address]83 Antique Refinisher: Sony Rinaldi MD #### UTMEHRAN, UTCRE #### [address] [place] [address] Antique Refinisher: Sony Rinaldi MDAlbuminon 77-25-9260Gqjwyxb [Mass/Vol]3.9 g/dL Normal3.5-5.2[facility] Valley HospitalComment on above:Performed By: #### SUEGY, BERENICEK, UTCA #### [facility] [address] [place] [address] Antique Refinisher: Vincent Sy MD [address] [place] [address] Antique Refinisher: Sony Rinaldi MD #### UTMEHRAN, UTCRE #### [address] [place], [place] 5849883 Antique Refinisher: Sony Rinaldi MDBasic Metabolic Profon 43-74-5452Tcejp gap [Moles/Vol]10 mmol/LNormal9-17[facility] South CampusComment on above:Performed By: #### UTPHO, UTK, UTCA #### [facility] [address] [place] [address] Antique Refinisher: Vincent Sy MD [address] [place] [address] Antique Refinisher: Sony Rinaldi MD #### UTMEHRAN, UTCRE #### [address] [place], [place] 7028683 Antique Refinisher: Sony Rinaldi MDBUN/CRE Mljmq48Adhhqa4-57Izwyt [facility] Comment on above:Performed By: #### BERENICE MAYESK, UTCA #### [facility] [address] [place], [place] [address] Antique Refinisher: Vincent Sy MD [address] [place] [address] Antique Refinisher: Sony Rinaldi MD #### KAVON, BERENICECRE #### [address] [place] [address] Antique Refinisher: Sony Rinaldi MDCalcium [Mass/Vol]10.5 mg/dLHigh8.6-10.4Fire[facility] South CampusComment on above:Performed By: #### INEZ MAYES, UTCA #### [facility] [address] [place] [address] Antique Refinisher: Vincent Sy MD [address] [place] [address] Antique Refinisher: Sony Rinaldi MD #### KAVON, BERENICECRE #### [address] [place] [address] Antique Refinisher: Sony Rinaldi MDChloride [Moles/Vol]108 mmol/RDuko80-813IltxjFirelands Regional Medical Center South CampusComment on above:Performed By: #### BERENICE MAYESK, UTCA #### [facility] [address] [place] [address] Antique Refinisher: Vincent Sy MD [address] [place] [address] Antique Refinisher: Sony Rinaldi MD #### UTMEHRAN, UTCRE #### [address] [place] [address] Antique Refinisher: Sony Rinaldi MDCO2 [Moles/Vol]22 mmol/KPtnlay31-49SkqyaFirelands Regional Medical Center South CampusComment on above:Performed By: #### UTPHO, UTK, UTCA #### [facility] [address] [place] [address] Antique Refinisher: Vincent Sy MD [address] [place] [address] Antique Refinisher: Sony Rinaldi MD #### UTTP, UTCRE #### [address] [place], [place] [address]83 Antique Refinisher: MELLY Shayreatinine [Mass/Vol]2.1 mg/dLHigh0.7-1.2MKing's Daughters Medical Center OhioCompontiac general hospital on above:Performed By: #### UTPSOPHIA, BERENICEK, UTCA #### [address] [address] Antique Refinisher: Vincent Sy MD [address] [place], [place] [id number] Antique Refinisher: Sony Rinaldi MD #### UTMEHRAN, UTCRE #### [address] [place], [place] [address]83 Antique Refinisher: Sony Rinaldi MDGFR/1.73 sq M.predicted among non-blacks MDRD (S/P/Bld) [Vol rate/Area]41 mL/min/{1.73_m2}Low>60Fire[facility] Center South CampusComment on above:Result Comment: These results are not intended for [...] or following therapy that affects renal tubular secretion.Performed By: #### UTPHO, UTK, UTCA #### [facility] [employer] [address] [place] [address] Antique Refinisher: Vincent Sy MD [address] [place] [address] Antique Refinisher: Sony Rinaldi MD #### UTTP, UTCRE #### [address] [place] [address] Antique Refinisher: Sony Rinaldi MDGlucose [Mass/Vol]139 mg/oWLhur66-04YkfxjKing's Daughters Medical Center OhioComment on above:Performed By: #### UTPHO, UTK, UTCA #### [facility] [address] [place] [address] Antique Refinisher: Vincent Sy MD [address] [place] [address] Antique Refinisher: Sony Rinaldi MD #### UTMEHRAN, UTCRE #### [address] [place] [id number] Antique Refinisher: DOLLY Shayotassium [Moles/Vol]4.8 mmol/LNormal3.7-5.3Mer[facility] HospitalComment on above:Performed By: #### UTPSOPHIA, UTK, UTCA #### [facility] [address] [place] [address] Antique Refinisher: Vincent Sy MD [address] [place], [facility]83 Antique Refinisher: Sony Rinaldi MD #### KAVON, UTCRE #### [address] [place] [address] Antique Refinisher: LISA Shayodium [Moles/Vol]140 mmol/OHbzyfy280-951Gdkpb [facility] Valley HospitalComment on above:Performed By: #### UTPHO, UTK, UTCA #### [facility] [address] [place] [address] Antique Refinisher: Vincent Sy MD [address] [place], [place] 5293783 Antique Refinisher: Sony Rinaldi MD #### UTTP, UTCRE #### [address] [place], [place] [address]83 Antique Refinisher: Sony Rinaldi MDUrea nitrogen [Mass/Vol]29 mg/dLHigh6-20Fire[facility] Center South CampusComment on above:Performed By: #### UTPSOPHIA, BERENICEK, UTCA #### [address] [address] Antique Refinisher: Vincent Sy MD [address] [place] [address] Antique Refinisher: Sony Rinaldi MD #### KAVON, UTCRE #### [address] [place] [address] Antique Refinisher: MELLY ShayNevada Regional Medical Center 90-07-9550Lgurwvevabw distribution width (RBC) [Ratio]16.4 %High11.8-14.4Fire[facility] Center South CampusComment on above:Performed By: #### BERENICE MAYESK, UTCA #### [facility] [address] [place] [address] Antique Refinisher: Vincent Sy MD [address] [place] [address] Antique Refinisher: Sony Rinaldi MD #### KAVON, UTCRE #### [address] [place], [place] [id number] Antique Refinisher: Sony Rinaldi MDHematocrit (Bld) [Volume fraction]52.2 %High 40.7-50.3MKing's Daughters Medical Center OhioComment on above:Performed By: #### UTPHO, UTK, UTCA #### [facility] [address] [place] [address] Antique Refinisher: Vincent Sy MD [address] [place] [phone] Antique Refinisher: Sony Rinaldi MD #### UTTP, UTCRE #### [address] [place], [place] 2569183 Antique Refinisher: Sony Rinaldi MDHemoglobin (Bld) [Mass/Vol]16.0 g/dLNormal 13.0-17.0[facility] HospitalComment on above:Performed By: #### UTPHO, UTK, UTCA #### [facility] [address] [place] [address] Antique Refinisher: Vincent Sy MD [address] [place] [address] Antique Refinisher: Sony Rinaldi MD #### UTMEHRAN, UTCRE #### [address] [place] [address] Antique Refinisher: JODEE ShayCH (RBC) [Entitic mass]26.3 veVvkeau70.2-33.5 [facility] HospitalComment on above:Performed By: #### UTPHO, UTK, UTCA #### [facility] [address] [place] [address] Antique Refinisher: Vincent Sy MD [address] [place], [facility]83 Antique Refinisher: Sony Rinaldi MD #### UTMEHRAN, UTCRE #### [address] [place], [place] [address] Antique Refinisher: JENS ShayC (RBC) [Mass/Vol]30.7 g/oPFnhqkr41.4-34.8[facility] HospitalComment on above:Performed By: #### UTPHO, UTK, UTCA #### [facility] [address] [place] [address] Antique Refinisher: Vincent Sy MD [address] [place] [address] Antique Refinisher: Sony Rinaldi MD #### KAVON, UTCRE #### [address] [place] [address] Antique Refinisher: JODEE ShayCV (RBC) [Entitic vol]85.9 gJPqzsvk25.6-102.9 [facility] South CampusComment on above:Performed By: #### UTPBERENICE CORTESK, UTCA #### [address] [address] Antique Refinisher: Vincent Sy MD [address] [place] [address] Antique Refinisher: Sony Rinaldi MD #### KAVON, UTCRE #### [address] [place] [address] Antique Refinisher: Sony Rinaldi MDNRBC Automated0.0 per 100 WBCNormal0.0Fire[facility] Center South CampusComment on above:Performed By: #### INEZ MAYES, UTCA #### [address] [address] Antique Refinisher: Vincent Sy MD [address] [place] [address] Antique Refinisher: Sony Rinaldi MD #### KAVON, UTCRE #### [address] [place], [facility]83 Antique Refinisher: DOLLY Shaylatelet mean volume (Bld) [Entitic vol]10.0 fL Normal8.1-13.5Fire[facility] Center South CampusComment on above:Performed By: #### UTPHO, BERENICEK, UTCA #### [address] [address] Antique Refinisher: Vincent Sy MD [address] [place] [address] Antique Refinisher: Sony Rinaldi MD #### UTTP, UTCRE #### [address] [place] [address] Antique Refinisher: Thu Shay (Bld) [#/Vol]267 10*3/zKWdvxdy787-485 [facility] South CampusComment on above:Performed By: #### UTPHO, UTK, UTCA #### [facility] [address] [place] [address] Antique Refinisher: Vincent Sy MD [address] [place] [address] Antique Refinisher: Sony Rinaldi MD #### UTTP, UTCRE #### [address] [place] [address] Antique Refinisher: PETE Shay (d) [#/Vol]6.08 10*6/uLHigh4.21-5.77Fire[facility] Center South CampusComment on above:Performed By: #### UTPHO, UTK, UTCA #### [facility] [address] [place] [address] Antique Refinisher: Vincent Sy MD [address] [place] [address] Antique Refinisher: Sony Rinaldi MD #### UTTP, UTCRE #### [address] [place] [address] Antique Refinisher: DE Shay (d) [#/Vol]8.9 10*3/uLNormal3.5-11.3MKing's Daughters Medical Center OhioComment on above:Performed By: #### UTPHO, UTK, UTCA #### [facility] [address] [place] [address] Antique Refinisher: Vincent Sy MD [facility] [address] [place] [address] [place] [address] Antique Refinisher: Sony Rinaldi MD #### KAVON, BERENICECRE #### [address] [place], [place] 3460383 Antique Refinisher: SIMEON Shay, Intacton 98-71-7022SQS, Nsybzc658.1 pg/mLHigh 14.0-72.0Fire[facility] Medical Center South CampusComment on above:Result Comment: SAMPLES FROM PATIENTS ROUTINELY RECEIVING HIGH DOSE BIOTIN THERAPY MAY SHOW FALSELY DEPRESSED RESULTS. ADDITIONAL INFORMATION MAY BE REQUIRED FOR DIAGNOSIS.Performed By: #### INEZ MAYES, BERENICECA #### [facility] [address] [place], [place] 9[address] Antique Refinisher: Vincent Sy MD [address] [place], [place] [phone] Antique Refinisher: Sony Rinaldi MD #### KAVON, ZITA #### [address] [place], [place] 260[address]83 Antique Refinisher: Dania Shaysphojimmie, Inorg.on 34-25-0361Cqgqzfhdls, Inorg. 3.1 mg/dLNormal2.5-4.5Fire[facility] Center South CampusComment on above:Performed By: #### INEZ MAYES, BERENICECA #### [facility] [employer] [address] [place] [address] Antique Refinisher: Vincent Sy MD [address] [place], [place] [phone] Antique Refinisher: Sony Rinaldi MD #### KAVON, UTCRE #### [address] [place], [place] 547[address]83 Antique Refinisher: Sony Rinaldi MDAlbuminon 01-19-5713Febarcs [Mass/Vol]4.3 g/dL3.5 - 5.2 g/dLBON SECDR. [facility] JelliBasic Metabolic Panelon 06-04-3605Smdgn gap [Moles/Vol]9 mmol/L9 - 17 mmol/LBON SECOURS MERCY HEALTHCalcium [Mass/Vol]12.0 mg/dLHigh8.6 - 10.4 mg/dLBON SECOURS MERCY HEALTHChloride [Moles/Vol]109 mmol/L High98 - 107 mmol/LBON SECOURS [facility] HEALTHCO2 [Moles/Vol]24 mmol/L20 - 31 mmol/LBON [facility] HEALTHCreatinine [Mass/Vol]1.95 mg/dLHigh0.70 - 1.20 mg/dLBON SECOURS Nano ePrint HEALTHGFR/1.73 sq M.predicted MDRD (S/P/Bld) [Vol rate/Area]44 mL/min/{1.73_m2}Low- PINFBON SECEVERGREENHEALTH MONROEAvaamo [facility] LUTHERAN HOSPITALComment on above: These results are not intended [...] therapy that affects renal tubular secretion. Glucose [Mass/Vol]93 mg/dL70 - 99 mg/dLBON ABRAZO CENTRAL CAMPUSCompuTEK Industries, LLC.Interpretation and review of laboratory resultsAbnormalBON SECDR. [facility] Nano ePrint HEALTHPotassium [Moles/Vol]5.1 mmol/L3.7 - 5.3 mmol/LBON SECDR. [facility] Nano ePrint [facility] LUT[facility] HOSPITALSodium [Moles/Vol] 142 mmol/L135 - 144 mmol/LBON [facility]CDR. [facility] E-Car Club HEALTHUrea nitrogen [Mass/Vol]28 mg/dLHigh6 - 20 mg/dLBON SECEVERGREENHEALTH MONROEPopdustUrea nitrogen/Creatinine [Mass ratio]14 mg/mg9 - 20BON UKIA[facility] VALLEY MEDICAL CENTERPopdustCBC with Auto Differentialon 18-81-2046Smkifnoov (Bld) [#/Vol]0.04 10*3/uLBON SECYoink Games HEALTH Basophils/100 WBC (Bld)1 %0 - 2 %BON UKIAH VALLEY MEDICAL CENTERAvaamo C[facility] LUTHERAN HOSPITALEosinophils (Bld) [#/Vol]0.13 10*3/uLBON ABRAZO CENTRAL CAMPUSOURS BARNESVILLE HOSPITALEosinophils/100 WBC (Bld)2 %1 - 4 % REST[facility]OSPITAL CENTERErythrocyte distribution width (RBC) [Ratio]15.9 %High 11.8 - 14.4 %[facility]OSPITAL CENTERHematocrit (Bld) [Volume fraction]47.0 % 40.7 - 50.3 %[facility]OSPITAL CENTERHemoglobin (Bld) [Mass/Vol]14.6 g/dL13.0 - 17.0 g/dLBON SECSUMMA HEALTH BARBERTON CAMPUSImmature granulocytes (Bld) [#/Vol]BON ABRAZO CENTRAL CAMPUSOURS BARNESVILLE HOSPITALImmature granulocytes/100 WBC (Bld)0 %0[facility] Interpretation and review of laboratory resultsAbnormalRESTON HOSPITAL CENTER Lymphocytes/100 WBC (Bld)38 %24 - 43 %[facility]OSPITAL CENTERLymphocytes/100 WBC (Bld)2.98 %[facility] HOSPITALH (RBC) [Entitic mass]27.5 pg25.2 - 33.5 pgBON SUMMA HEALTHHC (RBC) [Mass/Vol]31.1 g/dL28.4 - 34.8 g/dLBON SUMMA HEALTHV (RBC) [Entitic vol]88.5 fL82.6 - 102.9 fLRESTON HOSPITAL CENTERMonocytes/100 WBC (Bld)10 %3 - 12 %[facility] Monocytes/100 WBC (Bld)0.82 %[facility]OSPITAL CENTERNeutrophils/100 WBC (Bld)49 %36 - 65 %[facility]OSPITAL CENTERNRBC Automated0.00.0 per 100 WBCRESTON HOSPITAL CENTERPlatelet mean volume (Bld) [Entitic vol]9.6 fL8.1 - 13.5 fLRESTON HOSPITAL CENTERPlatelets (Bld) [#/Vol]327 10*3/uLBON [facility] RBC (Bld) [#/Vol]5.31 10*6/uL4.21 - 5.77 m/uLBON MER[facility] HEALTH URBANA HOSPITALSegmented neutrophils/100 WBC (Bld)3.91 %REST[facility] HOSPITAL CENTERWBC other (Bld) [#/Vol] 7.9BON [facility] SECSUMMA HEALTH BARBERTON CAMPUSCreatinine, Random Urineon 03-14-3870Mcuyezzvkg (U) [Mass/Vol]67.6 mg/dL39.0 - 259.0 mg/dLBON [facility] URBANA HOSPITALBON SECBEAUREGARD MEMORIAL HOSPITAL HEALTHMagnesiumon 74-34-3384Eiunaqbls [Mass/Vol]2.0 mg/dL1.6 - 2.6 mg/dLBON [facility] UR[facility]NA HOSPITALNo Panel Informationon 58-79-2923RIP [facility] URBANA HOSPITALPhosphoruson 26-05-7695Urvejsjjv [Mass/Vol]3.0 mg/dL2.5 - 4.5 mg/dLBON [facility] URBANA HOSPITALProtein, urine, randomon 99-01-8904Klrforo (U) [Mass/Vol]50 mg/dLBON [facility] URBANA HOSPITALComment on above:No normal range established.BON [facility] URBANA HOSPITALBasic Metab w/rfx MGon 57-46-0458Xmdlj gap [Moles/Vol]9 mmol/LNormal9-17[place] State Health SystemComment on above: Performed By: #### RICHIE BROWNHGHayden, CDP #### [employer] [address] [place] [address] Antique Refinisher: MELLY Pereyraalcium [Mass/Vol]10.0 mg/dLNormal8.6-10.4[place] State Health SystemComment on above:Performed By: #### PT GLYHGB, CDP #### [facility] [address] [place] [address] Antique Refinisher: MELLY Pereyrahloride [Moles/Vol]110 mmol/AGgkl86-101JntguOhio State Health SystemComment on above:Performed By: #### PT GLYHGB, CDP #### [facility] [address] [place] [address] Antique Refinisher: Vincent Sy MDCO2 [Moles/Vol]17 mmol/GAel47-26PkynfOhio State Health SystemComment on above:Performed By: #### PT, GLYHGB, CDP #### [facility] [employer] [address] [place] [address] Antique Refinisher: MELLY Pereyrareatinine [Mass/Vol]2.05 mg/dLHigh0.70-1.20 [place] [facility] Health SystemComment on above:Performed By: #### PT, GLYHGB, CDP #### [facility] [employer] [address] [place] [address] Antique Refinisher: Vincent Sy MDGFR/1.73 sq M.predicted among non-blacks MDRD (S/P/Bld) [Vol rate/Area]42 mL/min/{1.73_m2}Low>60[place] State Health SystemComment on above:Result Comment: These results are not intended for [...] or following therapy that affects renal tubular secretion.Performed By: #### STEPHANIE GLYHGB, CDP #### [facility] [employer] [address] [place] [address] Antique Refinisher: Vincent Sy MDGlucose [Mass/Vol]122 mg/fHZwny76-74CnoriParkview Community Hospital Medical CenterComment on above:Performed By: #### PT, GLYHGB, CDP #### [facility] [employer] [address] [place] [address] Antique Refinisher: DOLLY Pereyraotassium [Moles/Vol]5.8 mmol/LHigh3.7-5.3MParkview Community Hospital Medical CenterComment on above:Performed By: #### PT, GLYHGB, CDP #### [facility] [employer] [address] [place] [address] Antique Refinisher: Vincent Sy MDSodium [Moles/Vol]136 mmol/XZclyuh256-106GqfriOhio State Health SystemComment on above:Performed By: #### PT, GLYHGB, CDP #### [facility] [address] [place] [address] Antique Refinisher: Vincent Sy MDUrea nitrogen [Mass/Vol]37 mg/dLHigh6-20[place] State Health SystemComment on above:Performed By: #### PT, GLYHGB, CDP #### [facility] [address] [place] [address] Antique Refinisher: Vincent Sy MDPlatelet Counton 89-89-3346Hpbixjisr (Bld) [#/Vol]267 10*3/fSZteysc050-654WbhgeOhio State Health SystemComment on above: Performed By: #### PLT #### [facility] [address] [place] [address] Antique Refinisher: Vincent Sy MDAlbuminon 99-05-5206Vbxehix [Mass/Vol]4.2 g/dL 3.5 - 5.2 g/dLBON SECOURS MERCY HEALTHBasic Metabolic Panelon 86-67-8306Lhpty gap [Moles/Vol]12 mmol/L9 - 17 mmol/LBON [facility]OURS MERCY HEALTHCalcium [Mass/Vol] 11.3 mg/dLHigh8.6 - 10.4 mg/dLBON [facility] MERCY HEALTHChloride [Moles/Vol]107 mmol/L98 - 107 mmol/LBON [facility] MERCY HEALTHCO2 [Moles/Vol]19 mmol/LLow20 - 31 mmol/LBON [facility] HEALTHCreatinine [Mass/Vol]2.34 mg/dLHigh0.70 - 1.20 mg/dLBON [facility] MERCY HEALTHGFR/1.73 sq M.predicted MDRD (S/P/Bld) [Vol rate/Area]36 mL/min/{1.73_m2}Low- PINFBON SECOURS E-Car ClubY HEALTHComment on above: These results are not intended [...] therapy that affects renal tubular secretion. Glucose [Mass/Vol]106 mg/vDEiwn90 - 99 mg/dLBON [facility] Interpretation and review of laboratory resultsAbnormalRESTON HOSPITAL CENTER Potassium [Moles/Vol]5.4 mmol/LHigh3.7 - 5.3 mmol/LBON [facility] Sodium [Moles/Vol]138 mmol/L135 - 144 mmol/LBON [facility] URBANA HOSPITALUrea nitrogen [Mass/Vol]42 mg/dLHigh6 - 20 mg/dLBON MER[facility] HEALTH URBANA HOSPITALUrea nitrogen/Creatinine (Bld) [Mass ratio]189 - 20BON [facility] URBANA HOSPITALCBCon 05-62-1109Izbtxqiwil (Bld) [Volume fraction]39.5 %Low40.7 - 50.3 %RESTON HOSPITAL CENTERHemoglobin (Bld) [Mass/Vol]12.2 g/dLLow13.0 - 17.0 g/dLBON [facility] URBANA HOSPITALInterpretation and review of laboratory resultsAbnormalRIVERSIDE SHORE MEMORIAL HOSPITALH (RBC) [Entitic mass]27.1 pg25.2 - 33.5 pgBON SUMMA HEALTHHC (RBC) [Mass/Vol]30.9 g/dL28.4 - 34.8 g/dLBON SUMMA HEALTHV (RBC) [Entitic vol]87.8 fL82.6 - 102.9 fLRESTON HOSPITAL CENTERNRBC Automated 0.00.0 per 100 WBCBON [facility] URBANA HOSPITALPlatelet distribution width (Bld) [Ratio]14.1 %11.8 - 14.4 %BON [facility] URBANA HOSPITALPlatelet mean volume (Bld) [Entitic vol]9.7 fL8.1 - 13.5 fLLEWISGALE HOSPITAL ALLEGHANY HEALTHPlatelets (Bld) [#/Vol] 425 10*3/uLBON [facility] URBANA HOSPITALRBC (Bld) [#/Vol]4.50 10*6/uL4.21 - 5.77 m/uL REST[facility]OSPITAL CENTERWBC (Bld) [#/Vol]6.9 10*3/uLCJW MEDICAL CENTERCalcium, Ionizedon 99-48-6833Tgobzwy.ionized (Bld) [Moles/Vol]1.51 mmol/LHigh1.13 - 1.33 mmol/LBON [facility] Interpretation and review of laboratory resultsAbnormalRESTON HOSPITAL CENTER BON [facility] HOS[facility]ITALNo Panel Informationon 16-59-0371QJR [facility] URBANA HOSPITALPTH, Intacton 67-87-7131Xryvhpkederwmf and review of laboratory results AbnormalBON [facility] URBANA HOSPITALParathyrin.intact [Mass/Vol]248.7 pg/yNUign07.0 - 72.0 pg/mLRESTON HOSPITAL CENTERComment on above:SAMPLES FROM PATIENTS ROUTINELY RECEIVING HIGH DOSE BIOTIN THERAPY MAY SHOW FALSELY DEPRESSED RESULTS. ADDITIONAL INFORMATION MAY BE REQUIRED FOR DIAGNOSIS. [facility]OSPITAL CENTERPhosphoruson 67-14-6020Mdvjjisea [Mass/Vol]3.1 mg/dL2.5 - 4.5 mg/dLBON [facility] HOSPITALProtein / creatinine ratio, urineon 21-89-7691Xyccltpntx, Ur89.3 mg/dL39.0 - 259.0 mg/dLBON [facility] Interpretation and review of laboratory resultsAbnoAugusta Health Protein (U) [Mass/Vol]28 mg/dLBON [facility] URBANA HOSPITALComment on above:No normal range established.Urine Total Protein Creatinine Ratio0.60Juqc2.00 - 0.20CJW MEDICAL CENTERBasic Metabolic Panelon 06-06-2022 Anion gap [Moles/Vol]12 mmol/L9 - 17 mmol/LBON [facility] CareToSaveCalcium [Mass/Vol]9.6 mg/dL8.6 - 10.4 mg/dLBON [facility] URBANA HOSPITALChloride [Moles/Vol] 99 mmol/L98 - 107 mmol/LBON [facility] URBANA HOSPITALCO2 [Moles/Vol]21 mmol/L20 - 31 mmol/LBON [facility] URBANA HOSPITALCreatinine [Mass/Vol]2.01 mg/dLHigh0.70 - 1.20 mg/dLBON [facility] URBANA HOSPITALGFR/1.73 sq M.predicted MDRD (S/P/Bld) [Vol rate/Area]43 mL/min/{1.73_m2}Low- PINFBON [facility]ALTH URBANA HOSPITALGlucose [Mass/Vol] 144 mg/eMLojx34 - 99 mg/dLBON [facility] URBANA HOSPITALInterpretation and review of laboratory resultsAbnormalBON [facility] URBANA HOSPITALPotassium [Moles/Vol]4.3 mmol/L3.7 - 5.3 mmol/LBON [facility]ALTH URBANA HOSPITALSodium [Moles/Vol]132 mmol/WTqe702 - 144 mmol/LBON [facility] URBANA HOSPITALUrea nitrogen [Mass/Vol]27 mg/dLHigh6 - 20 mg/dLBON [facility] URBANA HOSPITALBasic Metabolic Profon 27-97-8915Paxdn gap [Moles/Vol]12 mmol/LNormal9-17[place] State Health SystemComment on above: Performed By: #### PT, GLYHGB, CDP #### [employer] [address] [place] [address] Antique Refinisher: MELLY Pereyraalcium [Mass/Vol]9.6 mg/dLNormal8.6-10.4[place] State Health SystemComment on above:Performed By: #### PT GLYHGB, CDP #### [employer] [address] [place] [address] Antique Refinisher: MELLY Pereyrahloride [Moles/Vol]99 mmol/HVrjhdp49-028SragoOhio State Health SystemComment on above:Performed By: #### PT, GLYHGB, CDP #### [employer] [address] [place] [address] Antique Refinisher: Vincent Sy MDCO2 [Moles/Vol]21 mmol/OKzpmyd34-44VbqrjOhio State Health SystemComment on above:Performed By: #### PT, GLYHGB, CDP #### [employer] [address] [place] [address] Antique Refinisher: MELLY Pereyrareatinine [Mass/Vol]2.01 mg/dLHigh0.70-1.20 [place] [facility] SystemComment on above:Performed By: #### RICHIE BROWNHGB, CDP #### [address] [address] Antique Refinisher: Vincent Sy MDGFR/1.73 sq M.predicted among non-blacks MDRD (S/P/Bld) [Vol rate/Area]43 mL/min/{1.73_m2}Low>60[place] [facility] Health SystemComment on above:Result Comment: These results are not intended for [...] or following therapy that affects renal tubular secretion.Performed By: #### BRITTANEY BROWN, CDP #### [facility] [employer] [address] [place] [address] Antique Refinisher: Vincent Sy MDGlucose [Mass/Vol]144 mg/tQAjhh55-37KytxxParkview Community Hospital Medical CenterComment on above:Performed By: #### BRITTANEY BROWN, CDP #### [facility] [employer] [address] [place] [address] Antique Refinisher: Vincent Sy MDPotassium [Moles/Vol]4.3 mmol/LNormal3.7-5.3 [facility] SystemComment on above:Performed By: #### STEPHANIE GLYHGHayden, CDP #### [facility] [employer] [address] [place] [address] Antique Refinisher: LISA Pereyraodium [Moles/Vol]132 mmol/SXvw462-186TindkOhio State Health SystemComment on above:Performed By: #### PT, GLYHGB, CDP #### [facility] [address] [place] [address] Antique Refinisher: Vincent Sy MDUrea nitrogen [Mass/Vol]27 mg/dLHigh6-20[facility] Health SystemComment on above:Performed By: #### PT, GLYHGB, CDP #### [facility] [address] [place] [address] Antique Refinisher: MELLY Pereyraastrid 08-18-1581Ptyizlghtmc distribution width (RBC) [Ratio]13.2 %Zabwgp64.8-14.4[facility] Health SystemComment on above:Performed By: #### PT, GLYHGB, CDP #### [facility] [address] [place] [id number] Antique Refinisher: Vincent Sy MDHematocrit (Bld) [Volume fraction]30.3 %Low 40.7-50.3MParkview Community Hospital Medical CenterComment on above:Performed By: #### PT, GLYHGB, CDP #### [facility] [employer] [address] [place] [id number] Antique Refinisher: Vincent Sy MDHemoglobin (Bld) [Mass/Vol]10.1 g/dLLow13.0-17.0 [facility] SystemComment on above:Performed By: #### PT, GLYHGB, CDP #### [facility] [address] [place] [address] Antique Refinisher: JODEE PereyraCH (RBC) [Entitic mass]29.8 uaWgluhv84.2-33.5 [facility] SystemComment on above:Performed By: #### PT, GLYHGB, CDP #### [facility] [employer] [address] [place] [address] Antique Refinisher: JODEE PereyraCHC (RBC) [Mass/Vol]33.3 g/eFJnylnh00.4-34.8 [facility] SystemComment on above:Performed By: #### PT, GLYHGB, CDP #### [facility] [address] [place] [address] Antique Refinisher: TOOTIE Pereyra (RBC) [Entitic vol]89.4 hHKtboqn52.6-102.9 [facility] SystemComment on above:Performed By: #### PT, GLYHGB, CDP #### [facility] [address] [place] [address] Antique Refinisher: BRAYDON Pereyra Automated0.0 per 100 WBCNormal0.0[facility] Health SystemComment on above:Performed By: #### PT, GLYHGB, CDP #### [facility] [employer] [address] [place] [address] Antique Refinisher: Jeffrey Pereyra mean volume (Bld) [Entitic vol]10.0 fL Normal8.1-13.5[facility] Health SystemComment on above:Performed By: #### PT, GLYHGB, CDP #### [facility] [address] [place] [address] Antique Refinisher: Thu Pereyra (Bld) [#/Vol]243 10*3/uOQieoxl075-572 [facility] SystemComment on above:Performed By: #### PT, GLYHGB, CDP #### [facility] [address] [place] [address] Antique Refinisher: MARSHA PereyraBC (Bld) [#/Vol]3.39 10*6/uLLow4.21-5.77[facility] Health SystemComment on above:Performed By: #### PT, GLYHGB, CDP #### [facility] [employer] [address] [place] [address] Antique Refinisher: Vincent Madoff, MDWBC (Bld) [#/Vol]11.3 10*3/uLNormal3.5-11.3[facility] Medical CenterComment on above:Performed By: #### BRITTANEY BROWN CDP #### [facility] [address] [place] [address] Antique Refinisher: Vincent Sy MDHematocrit (Bld) [Volume fraction]30.3 %Low40.7 - 50.3 %[facility]OSPITAL CENTERHemoglobin (Bld) [Mass/Vol]10.1 g/dLLow13.0 - 17.0 g/dLBON [facility]NA HOSPITALInterpretation and review of laboratory results AbnormalBON SUMMA HEALTHH (RBC) [Entitic mass]29.8 pg25.2 - 33.5 pgBON SUMMA HEALTHHC (RBC) [Mass/Vol]33.3 g/dL28.4 - 34.8 g/dLBON [facility]CCLEVEL[facility]ILLCREST HOSPITALV (RBC) [Entitic vol]89.4 fL82.6 - 102.9 fLRESTON HOSPITAL CENTERNRBC Automated0.00.0 per 100 WBCBON [facility] URBANA HOSPITALPlatelet distribution width (Bld) [Ratio]13.2 %11.8 - 14.4 %[facility] Platelet mean volume (Bld) [Entitic vol]10.0 fL8.1 - 13.5 fLLEWISGALE HOSPITAL ALLEGHANY HEALTHPlatelets (Bld) [#/Vol]243 10*3/uLBON [facility] URBANA HOSPITALRBC (Bld) [#/Vol]3.39 10*6/uLLow4.21 - 5.77 m/uLBON [facility] URBANA HOSPITALWBC (Bld) [#/Vol] 11.3 10*3/uLBON [facility] REGIONAL HOSPITALCalcium, Ionicon 48-05-1481Oplxttx [Moles/Vol]1.32 mmol/LNormal1.13-1.33[facility] Medical CenterComment on above:Performed By: #### BRITTANEY BROWN CDP #### [facility] [address] [place], [place] [phone] Antique Refinisher: Vincent Sy MDCalcium, Ionizedon 28-73-1845Ivzusqg.ionized (Bld) [Moles/Vol]1.32 mmol/L1.13 - 1.33 mmol/LBON CUSTER REGIONAL HOSPITALMagnesiumon 33-12-5960Evunvkjax [Mass/Vol]2.1 mg/dLNormal 1.6-2.6[facility] Medical CenterComment on above:Performed By: #### PT, GLYHGB, CDP #### [facility] [address] [place], [place] [phone] Antique Refinisher: Vincent Sy MDMagnesium [Mass/Vol]2.1 mg/dL1.6 - 2.6 mg/dLBON [facility]NA HOSPITALNo Panel Informationon 08-71-7600KR[facility] Glucose Fingerstickon 09-12-4602Pguqtns [Mass/Vol]175 mg/pDMyqm59 - 110 mg/dL [facility] CENTERInterpretation and review of laboratory resultsAbnormal [facility] MEDICAL CENTERGlucose [Mass/Vol]133 mg/dLHigh 75 - 110 mg/dLBON [facility] URBANA HOSPITALInterpretation and review of laboratory resultsAbnormalCJW MEDICAL CENTERXR CHEST PORTABLE on 37-45-2745TE CHEST PORTABLEEXAMINATION: ONE X-RAY VIEW OF THE CHEST 06/06/2022 [...] Signed by: Cholo Restrepo MD 06/06/22 Final resultNormalMercy Alvarado Hospital Medical CenterXR CHEST PORTABLEEXAMINATION: ONE XRAY VIEW OF THE CHEST 06/05/2022 [...] Signed by: David Gabriel MD 06/05/22 Final resultNormalMerMarian Regional Medical CenterBasic Metabolic Panelon 33-97-6630Dxxll gap [Moles/Vol]8 mmol/LLow9 - 17 mmol/LBON [facility]OU[facility] Calcium [Mass/Vol]9.1 mg/dL8.6 - 10.4 mg/dLBON SECOURS MERCY HEALTHChloride [Moles/Vol]102 mmol/L98 - 107 mmol/LBON [facility] MERCY HEALTHCO2 [Moles/Vol]22 mmol/L20 - 31 mmol/LBON [facility]CY HEALTHCreatinine [Mass/Vol]2.28 mg/dLHigh 0.70 - 1.20 mg/dLBON SECOURS MERCY HEALTHGFR/1.73 sq M.predicted MDRD (S/P/Bld) [Vol rate/Area]37 mL/min/{1.73_m2}Low- PINFBON SECOURS MERCY HEALTHGlucose [Mass/Vol]150 mg/jELygr76 - 99 mg/dLBON [facility]OU[facility] MERCY HEALTHInterpretation and review of laboratory resultsAbnormalBON [facility] MERCY HEALTHPotassium [Moles/Vol]4.8 mmol/L3.7 - 5.3 mmol/LBON [facility]OURS MERCY HEALTHSodium [Moles/Vol] 132 mmol/FYul196 - 144 mmol/LBON [facility]OURS MERCY HEALTHUrea nitrogen [Mass/Vol]23 mg/dLHigh6 - 20 mg/dLBON SECOURS MERCY HEALTHBasic Metabolic Profon 06-05-2022 Anion gap [Moles/Vol]8 mmol/LLow9-17[facility] Health SystemComment on above:Performed By: #### PLT #### [address] [address] Antique Refinisher: MELLY Pereyraalcium [Mass/Vol]9.1 mg/dLNormal8.6-10.4[facility] Health SystemComment on above:Performed By: #### PLT #### [facility] [address] [place] [address] Antique Refinisher: Vincent Sy MDChloride [Moles/Vol]102 mmol/XBcmrnq90-458NuqjxOhio State Health SystemComment on above:Performed By: #### PLT #### [address] [address] Antique Refinisher: Vincent Sy MDCO2 [Moles/Vol]22 mmol/EPjripw32-27WmfozOhio State Health SystemComment on above:Performed By: #### PLT #### [address] [address] Antique Refinisher: MELLY Pereyrareatinine [Mass/Vol]2.28 mg/dLHigh0.70-1.20 [facility] SystemComment on above:Performed By: #### PLT #### [address] [address] Antique Refinisher: Vincent Sy MDGFR/1.73 sq M.predicted among non-blacks MDRD (S/P/Bld) [Vol rate/Area]37 mL/min/{1.73_m2}Low>60MerMarian Regional Medical CenterComment on above:Result Comment: These results are not intended for [...] or following therapy that affects renal tubular secretion.Performed By: #### PLT #### [address] [address] Antique Refinisher: Vincent Sy MDGlucose [Mass/Vol]150 mg/wSCygr35-54LhimdParkview Community Hospital Medical CenterComment on above:Performed By: #### PLT #### [address] [address] Antique Refinisher: Vicnent Sy MDPotassium [Moles/Vol]4.8 mmol/LNormal3.7-5.3 [facility] SystemComment on above:Performed By: #### PLT #### [address] [address] Antique Refinisher: LISA Pereyraodium [Moles/Vol]132 mmol/VUox960-763NllqpOhio State Health SystemComment on above:Performed By: #### PLT #### [address] [address] Antique Refinisher: Vincent Sy MDUrea nitrogen [Mass/Vol]23 mg/dLWebster County Memorial Hospital6-20[facility] SystemComment on above:Performed By: #### PLT #### [address] [address] Antique Refinisher: Chinmay Pereyra 32-76-6487Rkzqqyxmorv distribution width (RBC) [Ratio]13.2 %Ofrrow27.8-14.4[facility] SystemComment on above:Performed By: #### PLT #### [facility] [employer] [address] [place] [address] Antique Refinisher: Vincent Sy MDHematocrit (Bld) [Volume fraction]32.3 %Low 40.7-50.3MParkview Community Hospital Medical CenterComment on above:Performed By: #### PLT #### [address] [address] Antique Refinisher: Vincent Sy MDHemoglobin (Bld) [Mass/Vol]10.3 g/dLLow13.0-17.0 [facility] SystemComment on above:Performed By: #### PLT #### [address] [address] Antique Refinisher: JODEE PereyraCH (RBC) [Entitic mass]29.5 dvNfkais15.2-33.5 [facility] SystemComment on above:Performed By: #### PLT #### [address] [address] Antique Refinisher: JODEE PereyraCHC (RBC) [Mass/Vol]31.9 g/bGJidkks59.4-34.8 [facility] SystemComment on above:Performed By: #### PLT #### [place] [address] Antique Refinisher: JODEE PereyraCV (RBC) [Entitic vol]92.6 gEMrczuh90.6-102.9 [facility] SystemComment on above:Performed By: #### PLT #### [address] [address] Antique Refinisher: Vincent Sy MDNRBC Automated0.0 per 100 WBCNormal0.0[facility] Health SystemComment on above:Performed By: #### PLT #### [address] [address] Antique Refinisher: DOLLY Pereyralatelet mean volume (Bld) [Entitic vol]10.7 fL Normal8.1-13.5[facility] Health SystemComment on above:Performed By: #### PLT #### [address] [address] Antique Refinisher: DOLLY Pereyralatelets (Bld) [#/Vol]179 10*3/jMXbgkxj401-226 [facility] SystemComment on above:Performed By: #### PLT #### [facility] [place] [address] Antique Refinisher: MARSHA PereyraBC (Bld) [#/Vol]3.49 10*6/uLLow4.21-5.77[facility] Medical CenterComment on above:Performed By: #### PLT #### [facility] [place] [address] Antique Refinisher: Vincent Sy MDWBC (Bld) [#/Vol]11.8 10*3/uLHigh3.5-11.3MParkview Community Hospital Medical CenterComment on above:Performed By: #### PLT #### [facility] [employer] [address] [place] [address] [phone] Antique Refinisher: Vincent Sy MDHematocrit (Bld) [Volume fraction]32.3 %Low40.7 - 50.3 %[facility]PITAL CENTERHemoglobin (Bld) [Mass/Vol]10.3 g/dLLow13.0 - 17.0 g/dLBON [facility]NA HOSPITALInterpretation and review of laboratory results AbnormalRIVERSIDE SHORE MEMORIAL HOSPITALH (RBC) [Entitic mass]29.5 pg25.2 - 33.5 pgRIVERSIDE SHORE MEMORIAL HOSPITALHC (RBC) [Mass/Vol]31.9 g/dL28.4 - 34.8 g/dLBON SUMMA HEALTHV (RBC) [Entitic vol]92.6 fL82.6 - 102.9 fLRESTON HOSPITAL CENTERNRBC Automated0.00.0 per 100 WBCRESTON HOSPITAL CENTERPlatelet distribution width (Bld) [Ratio]13.2 %11.8 - 14.4 %[facility] Platelet mean volume (Bld) [Entitic vol]10.7 fL8.1 - 13.5 fLRESTON HOSPITAL CENTERPlatelets (Bld) [#/Vol]179 10*3/uLBON [facility] URBANA HOSPITALRBC (Bld) [#/Vol]3.49 10*6/uLLow4.21 - 5.77 m/[facility] SystemWBC (Bld) [#/Vol] 11.8 10*3/uLHighBON CUSTER REGIONAL HOSPITALCalcium, Ionicon 97-41-4366Hcungaa [Moles/Vol]1.25 mmol/LNormal1.13-1.33[facility] SystemComment on above:Performed By: #### PLT #### [facility] [address] [place], [place] [phone] Antique Refinisher: Vincent Sy MDCalcium, Ionizedon 52-92-1383Zglpjry.ionized (Bld) [Moles/Vol]1.25 mmol/L1.13 - 1.33 mmol/LBON CUSTER REGIONAL HOSPITALMagnesiumon 97-95-2312Yztwsosns [Mass/Vol]2.3 mg/dLNormal 1.6-2.6MercOroville HospitalComment on above:Performed By: #### PLT #### [employer] [address] [place] [address] Antique Refinisher: Vincent Sy MDMagnesium [Mass/Vol]2.3 mg/dL1.6 - 2.6 mg/dLBON [facility] HOSPITALNo Panel Informationon 68-42-0622JSC [facility] OPERATIVE REPORTon 53-71-7925YORNQDQSE REPORT[address] [id number] OPERATIVE REPORT PATIENT NAME: ELIAS WALKER : 1985 MED REC NO: [id number] ROOM: 2022 ACCOUNT NO: [id number] ADMIT DATE: 05/23/2022 PROVIDER: Ariel Purdy MD [...] concluded with an excel (more content not included)...NormalMercy [facility] Glucose Fingerstickon 98-10-1398Vzbcasv [Mass/Vol]226 mg/xXHhxv72 - 110 mg/dLBON ABRAZO CENTRAL CAMPUSCompuTEK Industries, LLC. Interpretation and review of laboratory resultsAbnormalLEWISGALE HOSPITAL ALLEGHANY CareToSave [facility] JelliGlucose [Mass/Vol]213 mg/dIYhtg46 - 110 mg/dLBON ABRAZO CENTRAL CAMPUSCompuTEK Industries, LLC.Interpretation and review of laboratory resultsAbnormalBON CUSTER REGIONAL HOSPITALGlucose [Mass/Vol]218 mg/bYHbgk57 - 110 mg/dLBON SECOU[facility] MERCY HEALTHInterpretation and review of laboratory results AbnormalBON BTC.sxBON SECYoink Games HEALTHXR CHEST PORTABLEon 06-67-1287IRAJ RIS FLAG[facility] MEDICAL CENTERHealth Impact Solutions [facility] CareToSave Work Phone: radiology Study observation (narrative)DAVION [employer] Work Phone: XR CHEST PORTABLEEXAMINATION: ONE XRAY VIEW OF THE CHEST 06/05/2022 [...] Signed by: Akira Augustin MD 06/05/22 Final resultNormalPhysicians Regional Medical Center - Collier BoulevardCompuTEK Industries, LLC. Work Phone: radiology Study observation (narrative)[facility] [employer] Work Phone: xr CHEST PORTABLEOrdered By: David Gabriel on 06-05-2022 [facility] [employer] Work Phone: XR CHEST PORTABLEOrdered By: Akira Augustin on 02-66-5810RRV [employer] Work Phone: Basic Metabolic Panelon 43-13-3097Licay gap [Moles/Vol]11 mmol/L9 - 17 mmol/LBON SECOURS MERCY HEALTHCalcium [Mass/Vol]9.0 mg/dL8.6 - 10.4 mg/dLBON [facility] MERCY HEALTHChloride [Moles/Vol]102 mmol/L98 - 107 mmol/LBON SECOURS E-Car ClubY HEALTHCO2 [Moles/Vol]21 mmol/L20 - 31 mmol/LBON [facility]RS MERCY HEALTHCreatinine [Mass/Vol]2.35 mg/dLHigh0.70 - 1.20 mg/dLBON [facility] URBANA HOSPITALGFR/1.73 sq M.predicted MDRD (S/P/Bld) [Vol rate/Area]36 mL/min/{1.73_m2}Low- PINFBON MER[facility] HEALTH URBANA HOSPITALGlucose [Mass/Vol]192 mg/dLHigh 70 - 99 mg/dLBON [facility] URBANA HOSPITALInterpretation and review of laboratory resultsAbnormalBON [facility] URBANA HOSPITALPotassium [Moles/Vol]4.9 mmol/L3.7 - 5.3 mmol/LBON [facility] HEALTH URBANA HOSPITALSodium [Moles/Vol]134 mmol/ZFvc090 - 144 mmol/LBON [facility] URBANA HOSPITALUrea nitrogen [Mass/Vol]24 mg/dLHigh6 - 20 mg/dLBON [facility] URBANA HOSPITALBasic Metabolic Profon 34-20-9357Bpijf gap [Moles/Vol]11 mmol/L Normal9-17[facility] SystemComment on above:Performed By: #### PT GLYHGB, CDP #### [employer] [address] [place] [address] Antique Refinisher: MELLY Pereyraalcium [Mass/Vol]9.0 mg/dLNormal8.6-10.4[facility] SystemComment on above:Performed By: #### PT GLYHGB, CDP #### [employer] [facility] [place] [phone] Antique Refinisher: MELLY Pereyrahloride [Moles/Vol]102 mmol/IRixabn54-966AmmajOhio State Health SystemComment on above:Performed By: #### PT, GLYHGB, CDP #### [employer] [address] [place] [address] Antique Refinisher: Vincent Sy MDCO2 [Moles/Vol]21 mmol/DGnxgrj69-11VpbmvOhio State Health SystemComment on above:Performed By: #### PT, GLYHGB, CDP #### [employer] [address] [place] [address] Antique Refinisher: MELLY Pereyrareatinine [Mass/Vol]2.35 mg/dLHigh0.70-1.20 [facility] SystemComment on above:Performed By: #### BRITTANEY BROWN, CDP #### [address] [address] Antique Refinisher: Vincent Sy MDGFR/1.73 sq M.predicted among non-blacks MDRD (S/P/Bld) [Vol rate/Area]36 mL/min/{1.73_m2}Low>60[facility] SystemComment on above:Result Comment: These results are not intended for [...] or following therapy that affects renal tubular secretion.Performed By: #### BRITTANEY BROWN, CDP #### [facility] [employer] [address] [place] [address] Antique Refinisher: Vincent Sy MDGlucose [Mass/Vol]192 mg/zZNghy94-95Forlr [facility] Medical CenterComment on above:Performed By: #### BRITTANEY BROWN, CDP #### [facility] [employer] [address] [place] [address] Antique Refinisher: Vincent Sy MDPotassium [Moles/Vol]4.9 mmol/LNormal3.7-5.3 [facility] SystemComment on above:Performed By: #### RICHIE BROWNHGB, CDP #### [facility] [employer] [address] [place] [address] Antique Refinisher: Vincent Sy MDSodium [Moles/Vol]134 mmol/KCew909-522WtvwtOhio State Health SystemComment on above:Performed By: #### PT, GLYHGB, CDP #### [facility] [address] [place] [address] Antique Refinisher: Vincent Sy MDUrea nitrogen [Mass/Vol]24 mg/dLHigh6-20[facility] SystemComment on above:Performed By: #### PT, GLYHGB, CDP #### [facility] [address] [place] [address] Antique Refinisher: MELLY Pereyraastrid 80-62-7038Ertidlxkkvb distribution width (RBC) [Ratio]13.2 %Sabyyk97.8-14.4[facility] SystemComment on above:Performed By: #### PT, GLYHGB, CDP #### [facility] [employer] [address] [place] [address] Antique Refinisher: Vincent Sy MDHematocrit (Bld) [Volume fraction]36.6 %Low 40.7-50.3Muniversity hospitals cleveland medical centery [facility] Medical CenterComment on above:Performed By: #### PT, GLYHGB, CDP #### [facility] [employer] [address] [place] [address] Antique Refinisher: Vincent Sy MDHemoglobin (Bld) [Mass/Vol]11.9 g/dLLow13.0-17.0 [facility] SystemComment on above:Performed By: #### PT, GLYHGB, CDP #### [facility] [employer] [address] [place] [address] Antique Refinisher: JODEE PereyraCH (RBC) [Entitic mass]29.8 qrMbdycl54.2-33.5 [facility] SystemComment on above:Performed By: #### PT, GLYHGB, CDP #### [facility] [employer] [address] [place] [address] Antique Refinisher: JODEE PereyraCHC (RBC) [Mass/Vol]32.5 g/cZVjzzkx33.4-34.8 [facility] SystemComment on above:Performed By: #### PT, GLYHGB, CDP #### [facility] [address] [place] [address] Antique Refinisher: TOOTIE Pereyra (RBC) [Entitic vol]91.7 kKKcbkai84.6-102.9 [facility] SystemComment on above:Performed By: #### PT, GLYHGB, CDP #### [facility] [address] [place] [address] Antique Refinisher: BRAYDON Pereyra Automated0.0 per 100 WBCNormal0.0[facility] SystemComment on above:Performed By: #### PT, GLYHGB, CDP #### [facility] [employer] [address] [place] [address] Antique Refinisher: Jeffrey Pereyra mean volume (Bld) [Entitic vol]10.4 fL Normal8.1-13.5[facility] SystemComment on above:Performed By: #### PT, GLYHGB, CDP #### [facility] [address] [place] [address] Antique Refinisher: Sol Pereyrateerasmo (Bld) [#/Vol]196 10*3/yXGikmiu519-181 [facility] SystemComment on above:Performed By: #### PT, GLYHGB, CDP #### [facility] [employer] [address] [place] [address] Antique Refinisher: MARSHA PereyraBC (Bld) [#/Vol]3.99 10*6/uLLow4.21-5.77[facility] SystemComment on above:Performed By: #### PT, GLYHGB, CDP #### [facility] [employer] [address] [place] [address] Antique Refinisher: Vincent Madoff, MDWBC (Bld) [#/Vol]15.0 10*3/uLHigh3.5-11.3Mer[facility] Hospital Medical CenterComment on above:Performed By: #### PT, GLYHGB, CDP #### [employer] [address] [place] [address] Antique Refinisher: Vincent Sy MDHematocrit (Bld) [Volume fraction]36.6 %Low40.7 - 50.3 %[facility]OSPITAL CENTERHemoglobin (Bld) [Mass/Vol]11.9 g/dLLow13.0 - 17.0 g/dLBON [facility] HOSPITALInterpretation and review of laboratory results AbnormalBON SUMMA HEALTHH (RBC) [Entitic mass]29.8 pg25.2 - 33.5 pgBON SUMMA HEALTHHC (RBC) [Mass/Vol]32.5 g/dL28.4 - 34.8 g/dLBON SUMMA HEALTHV (RBC) [Entitic vol]91.7 fL82.6 - 102.9 fLRESTON HOSPITAL CENTERNRBC Automated0.00.0 per 100 WBCBON [facility] URBANA HOSPITALPlatelet distribution width (Bld) [Ratio]13.2 %11.8 - 14.4 %[facility] Platelet mean volume (Bld) [Entitic vol]10.4 fL8.1 - 13.5 fLLEWISGALE HOSPITAL ALLEGHANY HEALTHPlatelets (Bld) [#/Vol]196 10*3/uLBON [facility] URBANA HOSPITALRBC (Bld) [#/Vol]3.99 10*6/uLLow4.21 - 5.77 m/uLBON [facility] URBANA HOSPITALWBC (Bld) [#/Vol] 15.0 10*3/uLHighBON CUSTER REGIONAL HOSPITALCalcium, Ionicon 79-17-3943Jobtols [Moles/Vol]1.24 mmol/LNormal1.13-1.33MerMarian Regional Medical CenterComment on above:Performed By: #### BMP, MG, CBC, PT, PTT #### [facility] [address] [place], [place] [phone] Antique Refinisher: MELLY Pereyraalcium [Moles/Vol]1.28 mmol/LNormal1.13-1.33 [facility] SystemComment on above:Performed By: #### BRITTANEY BROWN, CDP #### [facility] [place], [place] [phone] Antique Refinisher: MELLY Pereyraalcium, Ionizedon 05-22-6907Eazytxy.ionized (Bld) [Moles/Vol]1.24 mmol/L1.13 - 1.33 mmol/LBON CUSTER REGIONAL HOSPITALCalcium.ionized (Bld) [Moles/Vol]1.28 mmol/L1.13 - 1.33 mmol/LBON CUSTER REGIONAL HOSPITALMagnesiumon 06-04-2022 Magnesium [Mass/Vol]2.2 mg/dLNormal1.6-2.6MParkview Community Hospital Medical Center Comment on above:Performed By: #### BRITTANEY BROWN, CDP #### [facility] [address] [place] [address] Antique Refinisher: Vincent Sy MDMagnesium [Mass/Vol]2.2 mg/dL1.6 - 2.6 mg/dLBON [facility] HOSPITALNo Panel Informationon 32-61-4113FYD [facility] HOSPITALPO Glucose Fingerstickon 13-76-6927Hxwjtva [Mass/Vol]182 mg/hUIxhh78 - 110 mg/dL [facility] CENTERInterpretation and review of laboratory resultsAbnormal B[facility] HOSPITALGlucose [Mass/Vol]208 mg/dLHigh 75 - 110 mg/dLBON [facility] HOSPITALInterpretation and review of laboratory resultsAbnormalCJW MEDICAL CENTERGlucose [Mass/Vol]191 mg/xSCtjw23 - 110 mg/dLBON [facility] HOSPITALInterpretation and review of laboratory resultsAbnormalBON SECOURS MERCY HEALTHBON [facility] MERCY HEALTHGlucose [Mass/Vol]156 mg/uMHjxj46 - 110 mg/dLBON [facility] Interpretation and review of laboratory resultsAbnormCentra Southside Community HospitalPTon 68-66-5321ZAO Coag (PPP) [Relative time]1.2 {INR} [facility] Hospital - WestComment on above:Result Comment: Therapeutic Range: Moderate Anticoagulant Intensity: INR = 2.0-3.0 High Anticoagulant Intensity: INR = 2.5-3.5Performed By: #### PT, GLYHGB, CDP #### [employer] [address] [place] [address] [phone] Antique Refinisher: LALO Pereyra Coag (PPP) [Time]15.3 sHigh11.7-14.9[facility] Health SystemComment on above:Performed By: #### PT, GLYHGB, CDP #### [facility] [facility] [address] [place] [address] [phone] Antique Refinisher: Deng Pereyraime-INRon 62-82-5477MNI Coag (PPP) [Relative time]1.2 {INR}[facility] CENTERInterpretation and review of laboratory resultsAbRiverside Behavioral Health CenterPT Coag (PPP) [Time]15.3 sHighBON CUSTER REGIONAL HOSPITALVancomycin Level, Randomon 06-04-2022 Vancomycin Rm17.1 ug/mLCJW MEDICAL CENTER Vancomycin,Randomon 94-82-8723Ysfhjmxzzp18.1 ug/mLNormalOhio State Health SystemComment on above:Result Comment: Higher trough serum vancomycin concentrations of 15-20 ug/mL are recommended for complicated infections such as bacteremia, endocarditis, osteomyelitis, meningitis, and hospital acquired pneumonia.Performed By: #### BMP, MG, CBC, PT, PTT #### [facility] [employer] [address] [place] [address] [phone] Antique Refinisher: SUSIE Pereyra CHEST PORTABLEon 70-49-8582WX CHEST PORTABLE EXAMINATION: ONE XRAY VIEW OF [...] Signed by: Eliana Crisostomo MD 06/04/22 Final resultNormalCommunity Memorial HospitalPN RIS CONSOLIDATEDPN RIS [facility] Work Phone: bSP[facility] Work Phone: radiology Study observation (narrative)[facility] Work Phone: arterial Blood Gas, POCon [phone] TestNOT APPLICABLERESTON HOSPITAL CENTERFIO240.0[facility]OSPITAL CENTERHCO3 (Bld) [Moles/Vol]22.9 mmol/L21.0 - 28.0 mmol/LBON [facility] HEALTHInterpretation and review of laboratory resultsAbnormalRESTON HOSPITAL CENTERNegative Base Excess, Ehk8Lwia8.0 - 2.0REST[facility]OSPITAL CENTERO2 Device/Flow/%Adult VentilatorRESTON HOSPITAL CENTEROxygen saturation in Blood97 %94.0 - 98.0 %[facility] nTG333.2HighSENTARA LEIGH HOSPITAL pH7.016Pkp0.350 - 7.450[facility] DE7353.6BON [facility] Hospitalmple Site Arterial LineCJW MEDICAL CENTERAllen TestNOT APPLICABLEBON MER[facility] URBANA HOSPITALFIO240.0[facility]ITAL CENTERHCO3 (Bld) [Moles/Vol]21.8 mmol/L21.0 - 28.0 mmol/LBON [facility]CY HEALTHNegative Base Excess, Miq2Gwfp7.0 - 2.0BON [facility] URBANA HOSPITALOxygen saturation in Blood98 % 94.0 - 98.0 %[facility] kXJ152.1[facility]ITALC pH 7.567Cuv3.350 - 7.450[facility] RR3422.5HighBON MERCY HEALTH URBANA HOSPITALPt Temp36.8BON [facility] URBANA HOSPITALSample SiteArterial LineBON [facility] URBANA HOSPITALBasic Metab w/rfx MGon 08-68-1601Czbmt gap [Moles/Vol]6 mmol/LLow 9-17[facility] State Health SystemComment on above:Performed By: #### BMP, MG, CBC, PT, PTT #### [facility] Energy [address] [place] [address] Antique Refinisher: MELLY Pereyraalcium [Mass/Vol]8.8 mg/dLNormal8.6-10.4[facility] State Health SystemComment on above:Performed By: #### BMP, MG, CBC, PT, PTT #### [facility] [address] [place] [address] Antique Refinisher: MELLY Pereyrahloride [Moles/Vol]102 mmol/INxlgyp79-834XmlyzOhio State Health SystemComment on above:Performed By: #### BMP, MG, CBC, PT, PTT #### [facility] [address] [place] [address] Antique Refinisher: Vincent Sy MDCO2 [Moles/Vol]22 mmol/YOhbswm65-21AqakzOhio State Health SystemComment on above:Performed By: #### BMP, MG, CBC, PT, PTT #### [facility] [employer] [address] [place] [address] Antique Refinisher: Vincent Sy MDCreatinine [Mass/Vol]2.68 mg/dLHigh0.70-1.20 [facility] Health SystemComment on above:Performed By: #### BMP, MG, CBC, PT, PTT #### [facility] HospitalV[facility] [address] [place] [address] Antique Refinisher: Vincent Sy MDGFR/1.73 sq M.predicted among non-blacks MDRD (S/P/Bld) [Vol rate/Area]30 mL/min/{1.73_m2}Low>60[facility] State Health SystemComment on above:Result Comment: These results are not intended for [...] or following therapy that affects renal tubular secretion.Performed By: #### BMP, MG, CBC, PT, PTT #### [employer] [address] [place] [address] Antique Refinisher: Vincent Sy MDGlucose [Mass/Vol]133 mg/zAChnb65-59GcjtnParkview Community Hospital Medical CenterComment on above:Performed By: #### BMP, MG, CBC, PT, PTT #### [facility] HospitalV[facility] [address] [place] [address] Antique Refinisher: Vincent Sy MDPotassium [Moles/Vol]5.1 mmol/LNormal3.7-5.3 [facility] Health SystemComment on above:Performed By: #### BMP, MG, CBC, PT, PTT #### [employer] [address] [place] [address] Antique Refinisher: Vincent Sy MDSodium [Moles/Vol]130 mmol/CIyj507-979AlicoOhio State Health SystemComment on above:Performed By: #### BMP, MG, CBC, PT, PTT #### [facility] HospitalV[facility] [address] [place] [address] Antique Refinisher: Vincent Sy MDUrea nitrogen [Mass/Vol]26 mg/dLHigh6-20[facility] Medical CenterComment on above:Performed By: #### BMP, MG, CBC, PT, PTT #### [facility] [address] [place] [address] Antique Refinisher: Vincent Sy MDCharlotte [facility] Metabolic Panelon 13-93-6036Vihkn gap [Moles/Vol]8 mmol/LLow9 - 17 mmol/LBON [facility] HEALTHCalcium [Mass/Vol]8.8 mg/dL8.6 - 10.4 mg/dLBON [facility] MERCY HEALTHChloride [Moles/Vol]111 mmol/LHigh 98 - 107 mmol/LBON [facility] HEALTHCO2 [Moles/Vol]20 mmol/L20 - 31 mmol/LBON [facility] HEALTHCreatinine [Mass/Vol]2.15 mg/dLHigh0.70 - 1.20 mg/dLBON [facility] MERCY HEALTHGFR/1.73 sq M.predicted MDRD (S/P/Bld) [Vol rate/Area]40 mL/min/{1.73_m2}Low- PINFBON SECOURS MERCY HEALTHGlucose [Mass/Vol]113 mg/dLHigh 70 - 99 mg/dLBON [facility] HEALTHInterpretation and review of laboratory resultsAbnormalBON [facility] MERCY HEALTHPotassium [Moles/Vol]5.3 mmol/L3.7 - 5.3 mmol/LBON [facility] HEALTHSodium [Moles/Vol]139 mmol/L135 - 144 mmol/LBON [facility] HEALTHUrea nitrogen [Mass/Vol]23 mg/dLHigh6 - 20 mg/dLBON [facility] MERCY HEALTHBac Metabolic Panel w/ Reflex to MGon 31-84-9061Efgzm gap [Moles/Vol]6 mmol/LLow9 - 17 mmol/LBON [facility] HEALTHCalcium [Mass/Vol]8.8 mg/dL8.6 - 10.4 mg/dLBON [facility] MERCY HEALTHChloride [Moles/Vol]102 mmol/L98 - 107 mmol/LBON [facility] HEALTHCO2 [Moles/Vol]22 mmol/L20 - 31 mmol/LBON [facility] HEALTHCreatinine [Mass/Vol]2.68 mg/dLHigh0.70 - 1.20 mg/dLBON MERCY HEALTH URBANA HOSPITALGFR/1.73 sq M.predicted MDRD (S/P/Bld) [Vol rate/Area]30 mL/min/{1.73_m2}Low- PINFBON MERCY HEALTH URBANA HOSPITALGlucose [Mass/Vol]133 mg/dLHigh 70 - 99 mg/dLBON [facility] URBANA HOSPITALInterpretation and review of laboratory resultsAbnormalBON MER[facility] URBANA HOSPITALPotassium [Moles/Vol]5.1 mmol/L3.7 - 5.3 mmol/LBON [facility]ALTH URBANA HOSPITALSodium [Moles/Vol]130 mmol/NEnn080 - 144 mmol/LBON [facility] URBANA HOSPITALUrea nitrogen [Mass/Vol]26 mg/dLHigh6 - 20 mg/dLBON [facility] URBANA HOSPITALBasic Metabolic Profon 03-22-7774Wnlmd gap [Moles/Vol]8 mmol/LLow 9-17[facility] State Health SystemComment on above:Performed By: #### PT GLYHGB, CDP #### [employer] [address] [place] [address] Antique Refinisher: MELLY Pereyraalcium [Mass/Vol]8.8 mg/dLNormal8.6-10.4[facility] State Health SystemComment on above:Performed By: #### PT GLYHGB, CDP #### [employer] [address] [place] [address] Antique Refinisher: MELLY Pereyrahloride [Moles/Vol]111 mmol/GUhqg47-048ZvyyvOhio State Health SystemComment on above:Performed By: #### PT, GLYHGB, CDP #### [employer] [address] [place] [address] Antique Refinisher: Vincent Sy MDCO2 [Moles/Vol]20 mmol/JBskqtd05-95SepnwOhio State Health SystemComment on above:Performed By: #### PT GLYHGB, CDP #### [employer] [address] [place] [address] Antique Refinisher: MELLY Pereyrareatinine [Mass/Vol]2.15 mg/dLHigh0.70-1.20 [facility] SystemComment on above:Performed By: #### BRITTANEY BROWN, CDP #### [address] [address] Antique Refinisher: Vincent Sy MDGFR/1.73 sq M.predicted among non-blacks MDRD (S/P/Bld) [Vol rate/Area]40 mL/min/{1.73_m2}Low>60[facility] State Health SystemComment on above:Result Comment: These results are not intended for [...] or following therapy that affects renal tubular secretion.Performed By: #### BRITTANEY BROWN, CDP #### [facility] [employer] [address] [place] [address] Antique Refinisher: Vincent Sy MDGlucose [Mass/Vol]113 mg/yACghv80-64Hobpg [facility] Medical CenterComment on above:Performed By: #### BRITTANEY BROWN, CDP #### [facility] [employer] [address] [place] [address] Antique Refinisher: Vincent Sy MDPotassium [Moles/Vol]5.3 mmol/LNormal3.7-5.3 [facility] SystemComment on above:Performed By: #### BRITTANEY BROWN, CDP #### [facility] [employer] [address] [place] [address] Antique Refinisher: Vincent Sy MDSodium [Moles/Vol]139 mmol/CJdawkr741-802CpqogOhio State Health SystemComment on above:Performed By: #### PT, GLYHGB, CDP #### [facility] [address] [place] [address] Antique Refinisher: Vincent Sy MDUrea nitrogen [Mass/Vol]23 mg/dLHigh6-20[facility] State Health SystemComment on above:Performed By: #### PT, GLYHGB, CDP #### [facility] [address] [place] [address] Antique Refinisher: MELLY Pereyraon 07-67-6179Dwrmujcnxgy distribution width (RBC) [Ratio]13.4 %Lwjnxw66.8-14.4[facility] Health SystemComment on above:Performed By: #### PT, GLYHGB, CDP #### [facility] [employer] [address] [place] [address] Antique Refinisher: Vincent Sy MDHematocrit (Bld) [Volume fraction]36.3 %Low 40.7-50.3Muniversity hospitals clevel[facility] medical centery [facility] Medical CenterComment on above:Performed By: #### PT, GLYHGB, CDP #### [facility] [employer] [address] [place] [address] Antique Refinisher: Vincent Sy MDHemoglobin (Bld) [Mass/Vol]11.8 g/dLLow13.0-17.0 [facility] SystemComment on above:Performed By: #### PT, GLYHGB, CDP #### [facility] [address] [place] [address] Antique Refinisher: JODEE PereyraCH (RBC) [Entitic mass]29.4 peNgfmqj95.2-33.5 [facility] SystemComment on above:Performed By: #### PT, GLYHGB, CDP #### [facility] [address] [place] [address] Antique Refinisher: JODEE PereyraCHC (RBC) [Mass/Vol]32.5 g/yFWzydyy83.4-34.8 [facility] SystemComment on above:Performed By: #### PT, GLYHGB, CDP #### [facility] [address] [place] [address] Antique Refinisher: JODEE PereyraCV (RBC) [Entitic vol]90.5 wLQgmcvp38.6-102.9 [facility] SystemComment on above:Performed By: #### PT, GLYHGB, CDP #### [facility] [employer] [address] [place] [address] Antique Refinisher: BRAYDON Pereyra Automated0.0 per 100 WBCNormal0.0[facility] State Health SystemComment on above:Performed By: #### PT, GLYHGB, CDP #### [facility] [employer] [address] [place] [address] Antique Refinisher: Sol Pereyratecarlton mean volume (Bld) [Entitic vol]10.8 fL Normal8.1-13.5[facility] State Health SystemComment on above:Performed By: #### PT, GLYHGB, CDP #### [facility] [address] [place] [address] Antique Refinisher: Sol Pereyrateerasmo (Bld) [#/Vol]190 10*3/dQBsjyyp590-522 [facility] SystemComment on above:Performed By: #### PT, GLYHGB, CDP #### [facility] [employer] [address] [place] [address] Antique Refinisher: MARSHA PereyraBC (Bld) [#/Vol]4.01 10*6/uLLow4.21-5.77[facility] Health SystemComment on above:Performed By: #### PT, GLYHGB, CDP #### [facility] [employer] [address] [place] [address] Antique Refinisher: Vincent Sy MDWBC (Bld) [#/Vol]17.1 10*3/uLHigh3.5-11.3[facility] Medical CenterComment on above:Performed By: #### BRITTANEY BROWN CDP #### [employer] [address] [place] [address] Antique Refinisher: Vincent Sy MDHematocrit (Bld) [Volume fraction]36.3 %Low40.7 - 50.3 %[facility]PITAL CENTERHemoglobin (Bld) [Mass/Vol]11.8 g/dLLow13.0 - 17.0 g/dLBON [facility] URBANA HOSPITALInterpretation and review of laboratory results AbnormalBON SUMMA HEALTHH (RBC) [Entitic mass]29.4 pg25.2 - 33.5 pgBON SUMMA HEALTHHC (RBC) [Mass/Vol]32.5 g/dL28.4 - 34.8 g/dLBON SUMMA HEALTHV (RBC) [Entitic vol]90.5 fL82.6 - 102.9 fLRESTON HOSPITAL CENTERNRBC Automated0.00.0 per 100 WBCBON [facility] URBANA HOSPITALPlatelet distribution width (Bld) [Ratio]13.4 %11.8 - 14.4 %[facility] Platelet mean volume (Bld) [Entitic vol]10.8 fL8.1 - 13.5 fLLEWISGALE HOSPITAL ALLEGHANY HEALTHPlatelets (Bld) [#/Vol]190 10*3/uLBON [facility] URBANA HOSPITALRBC (Bld) [#/Vol]4.01 10*6/uLLow4.21 - 5.77 m/uLBON [facility]ALTH URBANA HOSPITALWBC (Bld) [#/Vol] 17.1 10*3/uLHighBON [facility]AL HOSPITALCalcium, Ionicon 08-98-1530Zswjxnl [Moles/Vol]1.33 mmol/LNormal1.13-1.33[facility] State Health SystemComment on above:Performed By: #### BRITTANEY BROWN, [place] #### [employer] [address] [place] [phone] Antique Refinisher: Vincent Sy MDCalcium, Ionizedon 77-72-1221Oojvttk.ionized (Bld) [Moles/Vol]1.33 mmol/L1.13 - 1.33 mmol/LBON [facility] REGIONAL HOSPITALLaboratory - Blood bankon 35-26-8039Itnhw product type Nom (BPU)Leukocyte Reduced Red CellBON MERCY HEALTH URBANA HOSPITALLactic Acid, POCon 32-47-7472WJL Lactic Acid0.75 mmol/L0.56 - 1.39 mmol/LBON [facility] Magnesiumon 10-22-1155Togvuvwqe [Mass/Vol]2.4 mg/dLNormal1.6-2.6[facility] Medical CenterComment on above:Performed By: #### PT, GLYHGB, CDP #### [facility] [address] [place], [place] [phone] Antique Refinisher: Vincent Sy MDMagnesium [Mass/Vol]2.4 mg/dL1.6 - 2.6 mg/dLBON MER[facility] URBANA HOSPITALNo Panel Informationon 14-42-5799AHP [facility] Crossmatch ResultCOMPATIBLERESTON HOSPITAL CENTERDispense StatusREL FROM ALLOC [facility] CENTERTransfusion StatusOK TO TRANSFUSEBON [facility] UR[facility]NA HOSPITALUnit Susbhak9MKG [facility] Interpretation and review of laboratory resultsAbnormalRESTON HOSPITAL CENTER BON [facility] HE[facility] URBANA HOSPITALPOC Glucose Fingerstickon 80-74-3279Dyhujrs [Mass/Vol] 162 mg/rTLxur04 - 110 mg/dLBON [facility] URBANA HOSPITALInterpretation and review of laboratory resultsAbnormalCJW MEDICAL [facility]ENTER Glucose [Mass/Vol]153 mg/rTIoef09 - 110 mg/dLBON [facility] Interpretation and review of laboratory resultsAbnormCentra Southside Community HospitalGlucose [Mass/Vol]207 mg/dWEkgo38 - 110 mg/dLBON [facility] URBANA HOSPITALInterpretation and review of laboratory resultsAbnormalCJW MEDICAL CENTERGlucose [Mass/Vol]197 mg/xEEpwc24 - 110 mg/dLBON [facility] URBANA HOSPITALInterpretation and review of laboratory results AbnormalBON [facility] HEALTHGlucose [Mass/Vol]92 mg/dL75 - 110 mg/dLBON [facility] HEALTHGlucose [Mass/Vol]104 mg/dL75 - 110 mg/dLBON [facility]KENM[facility] HEALTHGlucose [Mass/Vol]103 mg/dL75 - 110 mg/dLBON [facility] HEALTHGlucose [Mass/Vol]116 mg/bRJsyb76 - 110 mg/dLBON [facility] HEALTHInterpretation and review of laboratory resultsAbnormalCJW MEDICAL CENTERGlucose [Mass/Vol]126 mg/uETrpp44 - 110 mg/dLBON [facility] HEALTHInterpretation and review of laboratory results AbnormalBON [facility] HOSPITALPOCT Glucoseon 10-49-6237Kkpxwqo [Mass/Vol]135 mg/vQRdme56 - 100 mg/dLBON [facility] PTon 02-67-2218SDS Coag (PPP) [Relative time]1.1 {INR}NormalOhio State Health SystemComment on above:Result Comment: Therapeutic Range: Moderate Anticoagulant Intensity: INR = 2.0-3.0 High Anticoagulant Intensity: INR = 2.5-3.5Performed By: #### PT, GLYHGB, CDP #### [employer] [address] [place] [address] Antique Refinisher: LALO Pereyra Coag (PPP) [Time]14.6 wEycjoj73.7-14.9[facility] State Health SystemComment on above:Performed By: #### PT, GLYHGB, CDP #### [employer] [address] [place], [place] [phone] Antique Refinisher: Kevin Pereyra-INRon 64-47-1839HNL Coag (PPP) [Relative time]1.1 {INR}DAVION REAGAN HEALTHPT Coag (PPP) [Time]14.6 sBON SECMARIA ELENA REAGAN HEALTHTYPE AND SCREENon 57-60-9472FMJ/RhPositive BON ALCIRA REAGAN HEALTHArm Band NumberBE [id number] SECMARIA ELENA WAYNEY HEALTHBlood product unit ID (Dose) [#][id number] SECMARIA ELENA MERCJed HEALTHBlood product unit ID (Dose) [#][id number] SECMARIA ELENA MERCY HEALTHBlood product unit ID (Dose) [#][id number] SECMARIA ELENA MERCY HEALTHBlood product unit ID (Dose) [#] [id number] ALCIRA REAGAN HEALTHExpiration Date06/02/2022,2359BON SECMARIA ELENA REAGAN HEALTHVancomycin Level, Randomon 06-03-2022 Vancomycin Rm31.9 ug/mLBON SECMARIA ELENA REAGAN HEALTHVancomycin,Randomon 06-03-2022 Wdsooeqxrs80.9 ug/mLNUniversity Hospitals Portage Medical CenterComment on above: Result Comment: Higher trough serum vancomycin concentrations of 15-20 ug/mL are recommended for complicated infections such as bacteremia, endocarditis, osteomyelitis, meningitis, and hospital acquired pneumonia.Performed By: #### BMP, MG, CBC, PT, PTT #### [employer] [address] [place] [address] Antique Refinisher: SUSIE Pereyra CHEST PORTABLEon 85-19-0718UP CHEST PORTABLE EXAMINATION: ONE XRAY VIEW OF [...] Support devices as above. Interpreted by: Eliana Crisotsomo MD Signed by: Eliana Crisostomo MD 06/03/22 Final resultNormalOhio State Health SystemMHPN RIS CONSOLIDATEDMHPN RIS CONSOLIDATEDBON [employer] Work Phone: radiology Study observation (narrative)HIGH MOBILITY Work Phone: XR CHEST PORTABLEOrdered By: Eliana Crisostomo on 06-03-2022 [facility] [employer] Work Phone: APTTon 42-87-9512cRGX Coag (Bld) [Time]28.1 sNormal 23.0-36.5[facility] State Health SystemComment on above:Performed By: #### BMP, MG, CBC, PT, PTT #### [employer] [address] [place] [phone] Antique Refinisher: Vincent Sy MDaPTT Coag (Bld) [Time]28.1 sB BTC.sxaPTT Coag (Bld) [Time]66.0 sHigh23.0-36.[address] [place] [address] Comment on above:Result Comment: NOTE: NEW REFERENCE RANGEPerformed By: #### BMP, MG, CBC, PT, PTT #### [employer] [address] [place] [address] [phone] Antique Refinisher: Vincent Sy MDAniastrid Gap (Calc) POCon 36-70-0521Jcdfc gap [Moles/Vol]11 mmol/L7 - 16 mmol/LBON BTC.sxArterial Blood Gas, POC on 33-58-8774Xwqpf TestNOT APPLICABLEBON SECYoink Games XSWCISSGW523.0BON BTC.sxHCO3 (Bld) [Moles/Vol]19.0 mmol/LLow21.0 - 28.0 mmol/LBON [employer] HEALTHNegative Base Excess, Stv0Mjma2.0 - 2.0BON BTC.sxO2 Device/Flow/%Adult VentilatorBON SECCompuTEK Industries, LLC.Oxygen saturation in Blood 97 %94.0 - 98.0 %[facility] nNA023.1[facility] pH7.137Pqj0.350 - 7.450[facility]ALTHPOC PS9753.6HighBON SEC[facility]RS MERCY HEALTHSample SiteArterial LineBON [facility] MERCY HEALTHAllen TestNOT APPLICABLEBON SECOURS MERCY XLQAGYMIC6963.0BON [facility] HEALTHHCO3 (Bld) [Moles/Vol]20.5 mmol/LLow21.0 - 28.0 mmol/LBON SEC[facility] HEALTHMode SIMV(PRVC)+ PSBON [facility]CY HEALTHNegative Base Excess, Fzz3Alht2.0 - 2.0B[facility] HEALTHO2 Device/Flow/%Adult VentilatorBON [facility] Oxygen saturation in Blood99 %High94.0 - 98.0 %[facility]ALTHPOC pCO2 44.6[facility]ALTHPOC pH7.490Bau3.350 - 7.450[facility] POC NO1600.5HighBON [facility] HEALTHSample SiteArterial LineBON [facility] MERCY HEALTHHCO3 (Bld) [Moles/Vol]20.9 mmol/LLow21.0 - 28.0 mmol/LBON [facility] HEALTHNegative Base Excess, Zrg8Gxkf6.0 - 2.0[facility] Oxygen saturation in Mqxkl431 %High94.0 - 98.0 %[facility]ALTHPOC pCO2 45.9[facility]ALTHPOC pH7.780Pmd2.350 - 7.450B[facility] POC UA0412.0HighBON SEC[facility]RS MERCY HEALTHHCO3 (Bld) [Moles/Vol]20.9 mmol/LLow21.0 - 28.0 mmol/LBON [facility] HEALTHNegative Base Excess, Nke8Fffr8.0 - 2.0[facility] HEALTHOxygen saturation in Jvtvo111 %High94.0 - 98.0 %[facility] gKQ820.8[facility] pH7.159Jcf3.350 - 7.450[facility]ALTHPOC YV8686.8HighBON SEC[facility]RS MERCY HEALTHHCO3 (Bld) [Moles/Vol]21.4 mmol/L21.0 - 28.0 mmol/LBON [facility] HEALTHNegative Base Excess, Iyn1Sdtn6.0 - 2.0B[facility] HEALTHOxygen saturation in Rjbui206 % High94.0 - 98.0 %[facility] oBH454.9LowBON [facility]ALTH POC pH7.3967.350 - 7.450BON [facility] IZ8510.3HighBON SECOURS [facility]ENT[facility] HEALTHHCO3 (Bld) [Moles/Vol]20.9 mmol/LLow21.0 - 28.0 mmol/LBON [facility] HEALTHNegative Base Excess, Akm3Bvcf8.0 - 2.0[facility]ALTH Oxygen saturation in Fpxwe947 %High94.0 - 98.0 %[facility] pCO2 35.5B[facility] pH7.3787.350 - 7.450BON [facility]USOURS [facility]ITALC KG3888.8HMary [facility] SECOURS [facility] HEALTHHCO3 (Bld) [Moles/Vol]22.3 mmol/L21.0 - 28.0 mmol/LBON [facility] HEALTHNegative Base Excess, Qdv3Ksdt5.0 - 2.0[facility] SECOURS MER[facility] HEALTHOxygen saturation in Ugkbz514 %High94.0 - 98.0 %[facility] tMU806.6[facility] pH7.466Umx9.350 - 7.450BON [facility]AMPUSOURS [facility] HOSPITALC QW8763.8HMary [facility] SEC[facility] HEALTHHCO3 (Bld) [Moles/Vol]20.4 mmol/LLow21.0 - 28.0 mmol/LBON [facility] HEALTHNegative Base Excess, Xlz9Qfby7.0 - 2.0BON [facility] HEALTHOxygen saturation in Jvjsj953 %High94.0 - 98.0 %[facility] jNY864.6[facility] POC pH7.516Pkv0.350 - 7.450BON [facility] MZ8563.9HMary [facility] SEC[facility] HEALTHHCO3 (Bld) [Moles/Vol]22.8 mmol/L21.0 - 28.0 mmol/LBON [facility]Y HEALTHNegative Base Excess, Evy5Mble0.0 - 2.0BON [facility] MONROEY HEALTHOxygen saturation in Poqsl416 %High94.0 - 98.0 %[facility] qQF427.4[facility] pH7.508Jtg4.350 - 7.450[facility] PO2 187.4HighBON MER[facility] URBANA HOSPITALBasic Metabolic Panelon 42-24-2306Lnbef gap [Moles/Vol]8 mmol/LLow9 - 17 mmol/LBON [facility] HEALTHCalcium [Mass/Vol]9.1 mg/dL8.6 - 10.4 mg/dLBON [facility] HEALTHChloride [Moles/Vol]111 mmol/LHigh 98 - 107 mmol/LBON [facility] HEALTHCO2 [Moles/Vol]19 mmol/LLow20 - 31 mmol/L BON [facility] HEALTHCreatinine [Mass/Vol]1.94 mg/dLHigh0.70 - 1.20 mg/dLBON [facility] HEALTHGFR/1.73 sq M.predicted MDRD (S/P/Bld) [Vol rate/Area]45 mL/min/{1.73_m2}Low- PINFBON SECBEAUREGARD [facility] HEALTHGlucose [Mass/Vol]93 mg/dL70 - 99 mg/dLBON [facility] HEALTHPotassium [Moles/Vol]5.0 mmol/L3.7 - 5.3 mmol/L [facility] HEALTHSodium [Moles/Vol]138 mmol/L135 - 144 mmol/LBON [facility]BEAUREGARD [facility]OR[facility]ITAL HEALTHUrea nitrogen [Mass/Vol]20 mg/dL6 - 20 mg/dLBON [facility]ALTH Anion gap [Moles/Vol]13 mmol/L9 - 17 mmol/LBON [facility] HEALTHCalcium [Mass/Vol]10.6 mg/dLHigh8.6 - 10.4 mg/dLBON [facility] HEALTHChloride [Moles/Vol]110 mmol/LHigh98 - 107 mmol/LBON [facility] HEALTHCO2 [Moles/Vol] 17 mmol/LLow20 - 31 mmol/LBON [facility] HEALTHCreatinine [Mass/Vol]1.79 mg/dLHigh0.70 - 1.20 mg/dLBON [facility] URBANA HOSPITALGFR/1.73 sq M.predicted MDRD (S/P/Bld) [Vol rate/Area]49 mL/min/{1.73_m2}Low- PINFBON [facility] Glucose [Mass/Vol]103 mg/wGRgyn76 - 99 mg/dLBON [facility] Interpretation and review of laboratory resultsAbnormalRESTON HOSPITAL [facility]ENTER Potassium [Moles/Vol]4.6 mmol/L3.7 - 5.3 mmol/LBON [facility] URBANA HOSPITALSodium [Moles/Vol]140 mmol/L135 - 144 mmol/LBON [facility] URBANA HOSPITALUrea nitrogen [Mass/Vol]22 mg/dLHigh6 - 20 mg/dLBON [facility]UST[facility] HOSPITALBasic Metabolic Profon [id number] gap [Moles/Vol]8 mmol/LLow9-17[facility] SystemComment on above:Performed By: #### BMP, MG, CBC, PT, PTT #### [facility] [employer] [address] [place] [address] Antique Refinisher: MELLY Pereyraalcium [Mass/Vol]9.1 mg/dLNormal8.6-10.4[facility] SystemComment on above:Performed By: #### BMP, MG, CBC, PT, PTT #### [facility] [address] [place] [address] Antique Refinisher: MELLY Pereyrahloride [Moles/Vol]111 mmol/WUlxe70-781SwcjmOhio State Health SystemComment on above:Performed By: #### BMP, MG, CBC, PT, PTT #### [facility] [address] [place] [address] Antique Refinisher: Vincent Sy MDCO2 [Moles/Vol]19 mmol/NCbq91-08BnobqOhio State Health SystemComment on above:Performed By: #### BMP, MG, CBC, PT, PTT #### [facility] [employer] [address] [place] [id number] Ant[employer] Refinisher: MELLY Pereyrareatinine [Mass/Vol]1.94 mg/dLHigh0.70-1.20 [facility] SystemComment on above:Performed By: #### BMP, MG, CBC, PT, PTT #### [address] [address] Ant[employer] Refinisher: Vincent Sy MDGFR/1.73 sq M.predicted among non-blacks MDRD (S/P/Bld) [Vol rate/Area]45 mL/min/{1.73_m2}Low>60[facility] Health SystemComment on above:Result Comment: These results are not intended for [...] or following therapy that affects renal tubular secretion.Performed By: #### BMP, MG, CBC, PT, PTT #### [facility] [employer] [address] [place] [address] Antique Refinisher: Vincent Sy MDGlucose [Mass/Vol]93 mg/wQUbewym51-06AvtkeParkview Community Hospital Medical CenterComment on above:Performed By: #### BMP, MG, CBC, PT, PTT #### [facility] [employer] [address] [place] [address] Antique Refinisher: DOLLY Pereyraotassium [Moles/Vol]5.0 mmol/LNormal3.7-5.3 [facility] SystemComment on above:Performed By: #### BMP, MG, CBC, PT, PTT #### [facility] [employer] [address] [place] [address] Antique Refinisher: LISA Pereyraodium [Moles/Vol]138 mmol/LLxpdiv580-721VbxbmOhio State Health SystemComment on above:Performed By: #### BMP, MG, CBC, PT, PTT #### [facility] [address] [place] [address] Antique Refinisher: Vincent Sy MDUrea nitrogen [Mass/Vol]20 mg/dLNormal6-20[facility] Health SystemComment on above:Performed By: #### BMP, MG, CBC, PT, PTT #### [facility] [address] [place] [address] Antique Refinisher: Vincent Sy MDAnion gap [Moles/Vol]13 mmol/LNormal9-17[facility] Health SystemComment on above:Performed By: #### BMP, MG, CBC, PT, PTT #### [facility] [employer] [address] [place] [address] Antique Refinisher: MELLY Pereyaralcium [Mass/Vol]10.6 mg/dLHigh8.6-10.4[facility] Health SystemComment on above:Performed By: #### BMP, MG, CBC, PT, PTT #### [facility] [employer] [address] [place] [address] Antique Refinisher: Vincent Sy MDChloride [Moles/Vol]110 mmol/VTokm44-397XhethOhio State Health SystemComment on above:Performed By: #### BMP, MG, CBC, PT, PTT #### [facility] [address] [place] [address] Antique Refinisher: Vincent Sy MDCO2 [Moles/Vol]17 mmol/WBjc69-75ExishOhio State Health SystemComment on above:Performed By: #### BMP, MG, CBC, PT, PTT #### [facility] [employer] [address] [place] [address] Antique Refinisher: MELLY Pereyrareatinine [Mass/Vol]1.79 mg/dLHigh0.70-1.20 [facility] SystemComment on above:Performed By: #### BMP, MG, CBC, PT, PTT #### [place] [address] Antique Refinisher: Vincent Sy MDGFR/1.73 sq M.predicted among non-blacks MDRD (S/P/Bld) [Vol rate/Area]49 mL/min/{1.73_m2}Low>60[facility] State Health SystemComment on above:Result Comment: These results are not intended for [...] or following therapy that affects renal tubular secretion.Performed By: #### BMP, MG, CBC, PT, PTT #### [facility] [employer] [address] [place] [address] Antique Refinisher: Vincent Sy MDGlucose [Mass/Vol]103 mg/vTQufy78-13TcpmtParkview Community Hospital Medical CenterComment on above:Performed By: #### BMP, MG, CBC, PT, PTT #### [facility] [employer] [address] [place] [address] Antique Refinisher: DOLLY Pereyraotassium [Moles/Vol]4.6 mmol/LNormal3.7-5.3 [facility] SystemComment on above:Performed By: #### BMP, MG, CBC, PT, PTT #### [facility] [employer] [address] [place] [address] Antique Refinisher: LISA Pereyraodium [Moles/Vol]140 mmol/CCegcdv700-838XhrcgOhio State Health SystemComment on above:Performed By: #### BMP, MG, CBC, PT, PTT #### [place] [address] Antique Refinisher: Vincent Sy MDUrea nitrogen [Mass/Vol]22 mg/dLHigh6-20[facility] Health SystemComment on above:Performed By: #### BMP, MG, CBC, PT, PTT #### [facility] [address] [place], [place] [address] Antique Refinisher: MELLY PereyraALCIUM, IONIC (POC)on 37-74-6351HUZ Ionized Calcium1.48 mmol/LHigh1.15 - 1.33 mmol/LBON [facility] Ionized Calcium1.44 mmol/LHigh1.15 - 1.33 mmol/LBON [facility] Ionized Calcium1.48 mmol/LHigh1.15 - 1.33 mmol/LBON [facility] Ionized Calcium1.27 mmol/L1.15 - 1.33 mmol/LBON [facility] Ionized Calcium 1.24 mmol/L1.15 - 1.33 mmol/LBON [facility] Ionized Calcium1.31 mmol/L1.15 - 1.33 mmol/LBON [facility] Ionized Calcium1.35 mmol/L High1.15 - 1.33 mmol/LBON [facility] Ionized Calcium1.37 mmol/LHigh 1.15 - 1.33 mmol/LBON [facility] HOSPITALCon 22-07-4838Kgnwbgonqhh distribution width (RBC) [Ratio]13.5 %Yesdjw31.8-14.4[facility] Health SystemComment on above:Performed By: #### BMP, MG, CBC, PT, PTT #### [facility] [address] [place], [place] [phone] Antique Refinisher: Vincent Sy MDHematocrit (Bld) [Volume fraction]34.9 %Low 40.7-50.3MParkview Community Hospital Medical CenterComment on above:Performed By: #### BMP, MG, CBC, PT, PTT #### [facility] [address] [place], [place] [phone] Antique Refinisher: Vincent Sy MDHemoglobin (Bld) [Mass/Vol]11.6 g/dLLow13.0-17.0 [facility] Health SystemComment on above:Performed By: #### BMP, MG, CBC, PT, PTT #### [address] [address] Antique Refinisher: JODEE PereyraCH (RBC) [Entitic mass]29.7 rvMipwxq57.2-33.5 [facility] Health SystemComment on above:Performed By: #### BMP, MG, CBC, PT, PTT #### [place] [address] Antique Refinisher: JENS PereyraC (RBC) [Mass/Vol]33.2 g/ySRwdpas40.4-34.8 [facility] SystemComment on above:Performed By: #### BMP, MG, CBC, PT, PTT #### [place] [address] Antique Refinisher: JODEE PereyraCV (RBC) [Entitic vol]89.3 jSIrswog05.6-102.9 [facility] SystemComment on above:Performed By: #### BMP, MG, CBC, PT, PTT #### [place] [address] Antique Refinisher: Vincent Sy MDNRBC Automated0.0 per 100 WBCNormal0.0[facility] State Health SystemComment on above:Performed By: #### BMP, MG, CBC, PT, PTT #### [facility] [employer] [address] [place] [address] Antique Refinisher: Sol Pereyratelet mean volume (Bld) [Entitic vol]10.5 fL Normal8.1-13.5[facility] State Health SystemComment on above:Performed By: #### BMP, MG, CBC, PT, PTT #### [address] [address] Antique Refinisher: DOLLY Pereyralatelets (Bld) [#/Vol]154 10*3/tTHgdcjc579-334 [facility] Health SystemComment on above:Performed By: #### BMP, MG, CBC, PT, PTT #### [facility] [address] [place] [address] Antique Refinisher: Vincetn Sy MDRBC (Bld) [#/Vol]3.91 10*6/uLLow4.21-5.77[facility] Health SystemComment on above:Performed By: #### BMP, MG, CBC, PT, PTT #### [facility] [employer] [address] [place] [address] Antique Refinisher: Vincent Sy MDWBC (Bld) [#/Vol]11.9 10*3/uLHigh3.5-11.3MParkview Community Hospital Medical CenterComment on above:Performed By: #### BMP, MG, CBC, PT, PTT #### [facility] [employer] [address] [place] [address] Antique Refinisher: Vincent Sy MDHematocrit (Bld) [Volume fraction]34.9 %Low40.7 - 50.3 %REST[facility] HOSPITAL CENTERHemoglobin (Bld) [Mass/Vol]11.6 g/dLLow13.0 - 17.0 g/dLBON MER[facility] URBANA HOSPITALInterpretation and review of laboratory results AbnormalBON SUMMA HEALTHH (RBC) [Entitic mass]29.7 pg25.2 - 33.5 pgBON SUMMA HEALTHHC (RBC) [Mass/Vol]33.2 g/dL28.4 - 34.8 g/dLBON SUMMA HEALTHV (RBC) [Entitic vol]89.3 fL82.6 - 102.9 fLRESTON HOSPITAL CENTERNRBC Automated0.00.0 per 100 WBCBON MER[facility] URBANA HOSPITALPlatelet distribution width (Bld) [Ratio]13.5 %11.8 - 14.4 %[facility] Platelet mean volume (Bld) [Entitic vol]10.5 fL8.1 - 13.5 fLBON [facility] URBANA HOSPITALPlatelets (Bld) [#/Vol]154 10*3/uLBON [facility] URBANA HOSPITALRBC (Bld) [#/Vol]3.91 10*6/uLLow4.21 - 5.77 m/uLBON [facility] URBANA HOSPITALWBC (Bld) [#/Vol] 11.9 10*3/uLHighBON [facility] SECBEAUREGARD [facility] HEALTHCHLORIDE (POC)on 94-15-0529Apikiogl [Moles/Vol]110 mmol/LHigh98 - 107 mmol/LBON [facility] URBANA HOSPITALCalcium, Ionicon 59-80-3577Xvrhauy [Moles/Vol]1.35 mmol/LHigh1.13-1.33 [facility] Health SystemComment on above:Performed By: #### BMP, MG, CBC, PT, PTT #### [facility] [address] [place] [phone] Antique Refinisher: Vincetn Sy, MDCalcium, Ionizedon 03-18-9939Dlymjja.ionized (Bld) [Moles/Vol]1.35 mmol/LHigh1.13 - 1.33 mmol/LBON [facility] Interpretation and review of laboratory resultsAbnormalBON [facility] BON [facility] HOSPITALCreatinine W/GFR Point of Careon 83-52-2969Pfzowxfpzi [Mass/Vol]1.87 mg/dLHigh0.51 - 1.19 mg/dLBON MER[facility] URBANA HOSPITALeGFR, POC47 mL/min/1.35s2BEM [facility] URBANA HOSPITALELECTROLYTES PLUSon 78-57-4259Wapqr gap [Moles/Vol]13 mmol/L7 - 16 mmol/LBON [facility] HOSPITALChloride [Moles/Vol]111 mmol/LHigh98 - 107 mmol/LBON [facility] UR[facility] HOSPITALCO2 [Moles/Vol]20 mmol/LLow22 - 30 mmol/LBON [facility] HOSPITALPotassium [Moles/Vol]5.0 mmol/LHigh3.5 - 4.5 mmol/LBON [facility] HEALTHSodium [Moles/Vol]143 mmol/L138 - 146 mmol/LBON [facility] HEALTHHemoglobin and hematocrit, bloodon 82-72-9474Fxupkdplar (Bld) [Volume fraction]35 %Low41 - 53 %BON [facility] HEALTHHemoglobin (Bld) [Mass/Vol]11.9 g/dLLow13.5 - 17.5 g/dLBON [facility]OURS MERCY HEALTHHematocrit (Bld) [Volume fraction]33 %Low41 - 53 %[facility] HEALTHHemoglobin (Bld) [Mass/Vol]11.3 g/dLLow13.5 - 17.5 g/dLBON [facility] MERCY HEALTHHematocrit (Bld) [Volume fraction]25 %Low41 - 53 %[facility] HEALTHHemoglobin (Bld) [Mass/Vol]8.6 g/dLLow13.5 - 17.5 g/dLBON [facility] MERCY HEALTHHematocrit (Bld) [Volume fraction]23 %Low41 - 53 %[facility] HEALTHHemoglobin (Bld) [Mass/Vol]7.9 g/dLLow13.5 - 17.5 g/dLBON [facility] MERCY HEALTHHematocrit (Bld) [Volume fraction]26 %Low41 - 53 %[facility] HEALTHHemoglobin (Bld) [Mass/Vol]8.9 g/dLLow13.5 - 17.5 g/dLBON [facility] MERCY HEALTHHematocrit (Bld) [Volume fraction]27 %Low41 - 53 %[facility] HEALTHHemoglobin (Bld) [Mass/Vol]9.0 g/dLLow13.5 - 17.5 g/dLBON [facility] MERCY HEALTHHematocrit (Bld) [Volume fraction]34 %Low41 - 53 %[facility] HEALTHHemoglobin (Bld) [Mass/Vol]11.5 g/dLLow13.5 - 17.5 g/dLBON [facility]RS MERCY HEALTHHematocrit (Bld) [Volume fraction]38 %Low41 - 53 %[facility] HEALTHHemoglobin (Bld) [Mass/Vol]12.8 g/dLLow13.5 - 17.5 g/dLBON MERCY HEALTH URBANA HOSPITALLactic Acid, POCon 28-47-9576UNJ Lactic Acid0.61 mmol/L0.56 - 1.39 mmol/LBON [facility] POC Lactic Acid0.88 mmol/L0.56 - 1.39 mmol/LBON [facility]UREG[facility] HEALTHMagnesiumon 76-46-7321Pppqtnbhm [Mass/Vol]3.1 mg/dLHigh1.6-2.6[facility] Medical CenterComment on above:Performed By: #### BMP, MG, CBC, PT, PTT #### [facility] [address] [place] [address] Antique Refinisher: Vincent Sy MDMagnesium [Mass/Vol]3.1 mg/dLHigh1.6 - 2.6 mg/dL BON [facility]OSPITALNo Panel Informationon 72-96-8350Nqicpftpvyziky and review of laboratory resultsAbnormalTWIN [facility] HEALTHInterpretation and review of laboratory results AbnormalBON [facility] HEALTHInterpretation and review of laboratory resultsAbnormalJOHN [facility] HEALTHInterpretation and review of laboratory resultsAbnormalJOHN [facility]OL[facility] HEALTHInterpretation and review of laboratory results AbnormalBON [facility] HEALTHInterpretation and review of laboratory resultsAbnormalJOHN [facility] HEALTHInterpretation and review of laboratory resultsAbnormalJOHN [facility] HEALTHInterpretation and review of laboratory results AbnormalBON [facility] HEALTHInterpretation and review of laboratory resultsAbnormalJOHN [facility] HEALTHInterpretation and review of laboratory resultsAbnormalCJW MEDICAL CENTERPOC Global Hemostasis (TEG 6S)on 97-70-4369Rnkxq TEG64.0 deg63.0 - 78.0 degBON MERCY HEALTH URBANA HOSPITALFibrinogen, Functional TEG23.3 mm15.0 - 32.0 mmRESTON HOSPITAL CENTERInterpretation and review of laboratory resultsAbnormalRESTON HOSPITAL CENTERKinetics TEG2.3 minHigh0.8 - 2.1 minCARILION [facility] (Max Clot) TEG57.2 mm52.0 - 69.0 mmCARILION [facility]ZEWELL [facility](Max Clot) Rapid TEG61.4 mm52.0 - 70.0 mmRESTON HOSPITAL CENTER Performing LocationPerformed at [facility] Perfusion BON SECSUMMA [facility]ALTH BARBERTON CAMPUSReaction Time TEG8.7 min4.6 - 9.1 minBON MER[facility] URBANA HOSPITALReaction Time TEG w Ivifjdm66.7 minHigh4.3 - 8.3 minCJW MEDICAL CENTERAngle TEG78.0 deg63.0 - 78.0 degRESTON HOSPITAL CENTERFibrinogen, Functional TEG33.1 jhSeko08.0 - 32.0 mmRESTON HOSPITAL CENTERInterpretation and review of laboratory resultsAbnormalRESTON HOSPITAL CENTERKinetics TEG0.8 min0.8 - 2.1 minCAR[facility] (Max Clot) TEG 66.2 mm52.0 - 69.0 mmCARILION [facility](Max Clot) Rapid TEG68.1 mm52.0 - 70.0 mmRESTON HOSPITAL CENTERPerforming LocationPerformed at [facility] PerfusionBON [facility] URBANA HOSPITALReaction Time TEG5.5 min 4.6 - 9.1 minRESTON HOSPITAL CENTERReaction Time TEG w Heparin5.8 min4.3 - 8.3 minCARILION [facility] Glucose Fingerstickon 00-53-0045Fjivcwf [Mass/Vol]86 mg/dL75 - 110 mg/dLBON [facility]UST[facility] REGIONAL HOSPITALGlucose [Mass/Vol]106 mg/dL75 - 110 mg/dLBON [facility] REGIONAL HOSPITALGlucose [Mass/Vol]86 mg/dL75 - 110 mg/dLBON C[facility] REGIONAL HOSPITALGlucose [Mass/Vol]88 mg/dL75 - 110 mg/dLBON [facility] URBANA HOSPITALBON [facility]BEAUREG[facility] HEALTHGlucose [Mass/Vol]90 mg/dL 75 - 110 mg/dLBON [facility] URBANA HOSPITALBON SECSUMMA HEALTH BARBERTON CAMPUSPOCT Glucoseon 77-60-7722Bulifqr [Mass/Vol]136 mg/jAUwmr96 - 100 mg/dLBON [facility] HEALTH Glucose [Mass/Vol]85 mg/dL74 - 100 mg/dLBON [facility] HEALTHGlucose [Mass/Vol]100 mg/dL74 - 100 mg/dLBON [facility] HEALTHGlucose [Mass/Vol]106 mg/xBZkgm01 - 100 mg/dLBON [facility] HEALTHGlucose [Mass/Vol]119 mg/iUVajh36 - 100 mg/dLBON [facility] HEALTHGlucose [Mass/Vol]90 mg/dL74 - 100 mg/dLBON [facility] HEALTHGlucose [Mass/Vol]95 mg/dL74 - 100 mg/dLBON [facility] HEALTHGlucose [Mass/Vol]89 mg/dL74 - 100 mg/dLBON [facility] HEALTHGlucose [Mass/Vol]104 mg/uVNfct26 - 100 mg/dLBON G[facility] COMM[facility]ITY HOSPITALCT urea (BUN)on 32-55-5590Syvl nitrogen [Mass/Vol]20 mg/dL8 - 26 mg/dLBON [facility] POTASSIUM (POC)on 56-41-4027Umfhsoqci [Moles/Vol]4.9 mmol/LHigh3.5 - 4.5 mmol/L BON [facility] HEALTHPotassium [Moles/Vol]5.3 mmol/LHigh3.5 - 4.5 mmol/LBON [facility] HEALTHPotassium [Moles/Vol]5.6 mmol/LHigh3.5 - 4.5 mmol/LBON [facility] HEALTHPotassium [Moles/Vol]6.1 mmol/LCritically high3.5 - 4.5 mmol/LBON [facility] HEALTHPotassium [Moles/Vol]5.3 mmol/LHigh3.5 - 4.5 mmol/LBON [facility] HEALTHPotassium [Moles/Vol]4.8 mmol/LHigh3.5 - 4.5 mmol/LBON [facility] HEALTHPotassium [Moles/Vol]4.5 mmol/L3.5 - 4.5 mmol/LBON [facility]CEVERGRE[facility]HE[facility] MONRO[facility]Y HEALTHPTon 25-10-1568QRR Coag (PPP) [Relative time]1.3 {INR} NormalOhio State Health SystemComment on above:Result Comment: Therapeutic Range: Moderate Anticoagulant Intensity: INR = 2.0-3.0 High Anticoagulant Intensity: INR = 2.5-3.5Performed By: #### BMP, MG, CBC, PT, PTT #### [facility] [address] [place], [place] [phone] Antique Refinisher: LALO Pereyra Coag (PPP) [Time]15.8 sHigh11.7-14.9[facility] State Health SystemComment on above:Performed By: #### BMP, MG, CBC, PT, PTT #### [facility] [address] [place] [address] Antique Refinisher: Deng Pereyraime-INRon 07-53-7911CVZ Coag (PPP) [Relative time]1.3 {INR}[facility]ITAL CENTERInterpretation and review of laboratory resultsAbnormalBON [facility]AUREG[facility]ITAL HEALTHPT Coag (PPP) [Time]15.8 sHighBON SECEVERGREENHEALTH MONROEY HEALTHSODIUM (POC)on 55-02-8124Ejzsoe [Moles/Vol]143 mmol/L138 - 146 mmol/LBON SECDR. [facility]CY HEALTHSodium [Moles/Vol]140 mmol/L138 - 146 mmol/LBON [facility] HEALTHSodium [Moles/Vol]138 mmol/L138 - 146 mmol/LBON [facility] HEALTHSodium [Moles/Vol]140 mmol/L138 - 146 mmol/LBON [facility] HEALTH Sodium [Moles/Vol]143 mmol/L138 - 146 mmol/LBON [facility] HEALTHSodium [Moles/Vol]144 mmol/L138 - 146 mmol/LBON [facility]GRE[facility] MONROEY HEALTHType + Screenon 72-31-5446Cqnf + ScreenSample Expiration 06/02/2022,2359 Arm Band Number [id number] ABO/Rh(D) B POSITIVE Antibody Screen NEGATIVE Unit Number [id number] Blood Component Type Leukocyte Reduced Red Cell Unit Division 00 Status of Unit REL FROM ALLOC Transfusion Status OK TO TRANSFUSE Crossmatch Result COMPATIBLE Unit Number [id number] Blood Component Type Leukocyte Reduced Red Cell Unit Division 00 Status of Unit REL FROM ALLOC Transfusion Status OK TO TRANSFUSE Crossmatch Result COMPATIBLE Unit Number [id number] Blood Component Type Leukocyte Reduced Red Cell Unit Division 00 Status of Unit REL FROM ALLOC Transfusion Status OK TO TRANSFUSE Crossmatch Result COMPATIBLE Unit Number [id number] Blood Component Type Leukocyte Reduced Red Cell Unit Division 00 Status of Unit REL FROM ALLOC Transfusion Status OK TO TRANSFUSE Crossmatch Result COMPATIBLENoCleveland Clinic Children's Hospital for RehabilitationComment on above:Performed By: #### BMP, MG, CBC, PT, PTT #### [facility] [address] [place], [place] [id number] Antique Refinisher: SUSIE Pereyra CHEST PORTABLEon 79-58-0748EN CHEST PORTABLE EXAMINATION: ONE XRAY VIEW OF [...] devices. Minimal areas of atelectasis. Interpreted by: Miki Delgado MD Signed by: Miki Delgado MD 06/02/[address] Charles HospitalPN RIS CONSOLIDATEDPN RIS CONSOLIDATEDBON [facility] [employer] Work Phone: radiology Study observation (narrative)[employer] Phone: XR CHEST PORTABLEOrdered By: Miki Delgado on 21-03-4405WVB [facility] MED[facility] CENTERPopdust Work Phone: [facility] [phone] Coag (Bld) [Time]66.0 sHigBon Secours Health System HEALTHInterpretation and review of laboratory resultsAbnormCarilion Stonewall Jackson HospitalaPTT Coag (Bld) [Time]60.4 sHigh 23.0-36.5[facility] State Health SystemComment on above:Result Comment: NOTE: NEW REFERENCE RANGEPerformed By: #### BMP, MG, CBC, PT, PTT #### [facility] HospitalVadxx Energy [address] [place] [phone] Antique Refinisher: Vincent Sy MDaPTT Coag (Bld) [Time]60.4 sHigBon Secours Health System HEALTHInterpretation and review of laboratory resultsAbnoDe Smet Memorial HospitalaPTT Coag (Bld) [Time]77.8 sHigh23.0-36.5 [facility] SystemComment on above:Result Comment: NOTE: NEW REFERENCE RANGEPerformed By: #### PTT #### [facility] [address] [place], [place] [id number] Antique Refinisher: Vincent Sy MDaPTT Coag (Bld) [Time]77.8 [facility] HospitalInterpretation and review of laboratory resultsAbnormCarilion Stonewall Jackson HospitalaPTT Coag (Bld) [Time]68.8 sHigh23.0-36.5 [facility] SystemComment on above:Result Comment: NOTE: NEW REFERENCE RANGEPerformed By: #### BMP, MG, CBC, PT, PTT #### [facility] HospitalVadxx Energy [address] [place] [phone] Antique Refinisher: Vincent Sy MDaPTT Coag (Bld) [Time]68.8 [facility] HEALTHInterpretation and review of laboratory resultsAbnoDe Smet Memorial HospitalBasic Metabolic Panelon 30-20-8296UUX/1.73 sq M.predicted MDRD (S/P/Bld) [Vol rate/Area]55 mL/min/{1.73_m2}Low- PINFBON MER[facility]ALTH URBANA HOSPITALInterpretation and review of laboratory resultsAbnormalBON [facility]AL HOSPITALBasic Metabolic Profon 06-01-2022 GFR/1.73 sq M.predicted among non-blacks MDRD (S/P/Bld) [Vol rate/Area]55 mL/min/{1.73_m2}Low>60[facility] State Health SystemComment on above:Result Comment: These results are not intended for [...] or following therapy that affects renal tubular secretion.Performed By: #### PTT #### [facility] [address] [place] [address] Antique Refinisher: Vincent Sy MDAnion gap [Moles/Vol]7 mmol/LLow9-17[facility] on above:Performed By: #### PTT #### [facility] [address] [place] [address] Antique Refinisher: MELLY Pereyraalcium [Mass/Vol]10.6 mg/dLHigh8.6-10.4BChildren[facility] Hospital [facility] on above:Performed By: #### PTT #### [facility] [address] [place] [address] Antique Refinisher: Vincent Sy MDChloride [Moles/Vol]104 mmol/LUtwlij60-669ROQCJW Medical Center on above:Performed By: #### PTT #### [facility] [address] [place], [place] [phone] Antique Refinisher: Vincent Sy MDCO2 [Moles/Vol]25 mmol/ZEvqcdd30-36NVCCJW Medical Center on above:Performed By: #### PTT #### [address] [address] Antique Refinisher: MELLY Pereyrareatinine [Mass/Vol]1.65 mg/dLHigh0.70-1.20BON SECSUMMA HEALTH BARBERTON CAMPUSComment on above:Performed By: #### PTT #### [address] [address] Antique Refinisher: Vincent Sy MDGlucose [Mass/Vol]246 mg/eIKrbq36-95UFJ SECSUMMA HEALTH BARBERTON CAMPUSCompontiac general hospital on above:Performed By: #### PTT #### [address] [address] Antique Refinisher: Vincent Sy MDPotassium [Moles/Vol]4.4 mmol/LNormal3.7-5.3BON [facility] HOSPITALCompontiac general hospital on above:Performed By: #### PTT #### [address] [address] Antique Refinisher: Vincent Sy MDSodium [Moles/Vol]136 mmol/JPfzgzj594-179LGJ SECSUMMA HEALTH BARBERTON CAMPUSCompontiac general hospital on above:Performed By: #### PTT #### [address] [address] Antique Refinisher: Vincent Sy MDUrea nitrogen [Mass/Vol]20 mg/dLNormal6-20BON [facility]BANA HOSPITALCompontiac general hospital on above:Performed By: #### PTT #### [address] [address] Antique Refinisher: MELLY Pereyrault,Urineon 56-89-6973Kfdu,UrineSpecimen Description .URINE Culture NO SIGNIFICANT GROWTH Report Status FINAL 05/31/2022NoCleveland Clinic Children's Hospital for RehabilitationComment on above:Performed By: #### PLT #### [address] [address] Antique Refinisher: Vincent Sy MDEKG 12 LeadOrdered By: Prateek Esquivel on 42-45-1207Kkbzbo Ewev44RTDRDO SECYo[employer] HEALTH Work Phone: P [id number] SECBeijing Buding Fangzhou Science and TechnologyY HEALTH Work Phone: P-R [id number] msBON SECBeijing Buding Fangzhou Science and TechnologyY HEALTH Work Phone: Q-T Txotpkhf820 msBON SEC[facility]RS [employer] ClubY HEALTH Work Phone: QRS Rlrykkpx43 msBON [facility]Y HEALTH Work Phone: QTc Calculation (Bazett)410 msBON SECBeijing Buding Fangzhou Science and TechnologyY HEALTH Work Phone: R [id number] [employer]Yo[employer] HEALTH Work Phone: T [id number] [employer]Yo[employer] HEALTH Work Phone: Ventricular [id number] SECYo[employer] HEALTH Work Phone: BON SECCompuTEK [employer], [employer]. Work Phone: EKG 12 Leadon [phone] STV MUSEBON SECCompuTEK Industries, LLC. Work Phone: Hemoglobin and Hematocriton [phone] (Bld) [Volume fraction]39.3 %Low40.7 - 50.3 %BON [facility] URBANA HOSPITALHemoglobin (Bld) [Mass/Vol]13.0 g/dL13.0 - 17.0 g/dLBON [facility] URBANA HOSPITALInterpretation and review of laboratory resultsAbnormalBON SECMERCY HEALTH ST. [facility] SECSUMMA HEALTH BARBERTON CAMPUSHgb/Hcton 15-48-9632Iakkhdixdf (Bld) [Volume fraction]39.3 %Low40.7-50.3 [facility] SystemComment on above:Performed By: #### PTT #### [facility] [address] [place] [address] Antique Refinisher: Vincent Sy MDHemoglobin (Bld) [Mass/Vol]13.0 g/dLNormal 13.0-17.0[facility] SystemComment on above:Performed By: #### PTT #### [facility] [address] [place] [id number] Antique Refinisher: HAIDER Pereyra Glucose Fingerstickon [id number] [Mass/Vol]232 mg/kAZmfs30 - 110 mg/dLBON MER[facility] URBANA HOSPITALInterpretation and review of laboratory resultsAbnormalCJW MEDICAL CENTERGlucose [Mass/Vol]193 mg/rAJzqm25 - 110 mg/dLBON [facility] Interpretation and review of laboratory resultsAbnormalVCU HEALTH COMMUNITY MEMORIAL HOSPITALGlucose [Mass/Vol]234 mg/xRViyn84 - 110 mg/dLBON [facility] HEALTHInterpretation and review of laboratory resultsAbnormalCJW MEDICAL CENTERGlucose [Mass/Vol]141 mg/iTVvwn50 - 110 mg/dLBON [facility] HEALTHInterpretation and review of laboratory results AbnormalBON CUSTER REGIONAL HOSPITALPlatelet Counton [id number] (Bld) [#/Vol]216 10*3/zBZaioje547-611UenqtOhio State Health SystemComment on above:Performed By: #### BMP, MG, CBC, PT, PTT #### [facility] HospitalV[facility]xx Energy [address] [place] [address] [phone] Antique Refinisher: DOLLY Pereyralatelets (Bld) [#/Vol]216 10*3/[facility] HospitalAPTTon 89-05-2748dNOA Coag (Bld) [Time]38.6 sHigh23.0-36.5[facility] State Health SystemComment on above:Result Comment: NOTE: NEW REFERENCE RANGEPerformed By: #### PT, GLYHGB, CDP #### [facility] HospitalV[facility] Energy [address] [place] [address] [phone] Antique Refinisher: Vincent Sy MDaPTT Coag (Bld) [Time]38.6 sHighBON [facility] HEALTHInterpretation and review of laboratory resultsAbnormalBON [facility] HEALTHBON [facility] HEALTHArterial Blood Gas, POCon 23-16-4535Olaiy TestPositiveBON [facility] PVVKTEIKK31.0[facility] HEALTHHCO3 (Bld) [Moles/Vol]24.1 mmol/L21.0 - 28.0 mmol/LBON [facility] HEALTHNegative Base Excess, Art20.0 - 2.0BON [facility]NA HOSPITALOxygen saturation in Blood98 %94.0 - 98.0 %[facility] aLL461.3[facility] pH7.315 Low7.350 - 7.450[facility] KH4034.8HighBON [facility] Sample SiteRight Radial ArteryBON [facility] URBANA HOSPITALBasic Metabolic Panelon 45-77-7642Txoni gap [Moles/Vol]9 mmol/L9 - 17 mmol/LBON [facility] HEALTH Calcium [Mass/Vol]10.0 mg/dL8.6 - 10.4 mg/dLBON [facility] HEALTHChloride [Moles/Vol]107 mmol/L98 - 107 mmol/LBON [facility] HEALTHCO2 [Moles/Vol]21 mmol/L20 - 31 mmol/LBON [facility] HEALTHCreatinine [Mass/Vol]1.65 mg/dLHigh 0.70 - 1.20 mg/dLBON [facility] HEALTHGFR/1.73 sq M.predicted MDRD (S/P/Bld) [Vol rate/Area]55 mL/min/{1.73_m2}Low- PINFBON [facility] HEALTHGlucose [Mass/Vol]125 mg/fNWbgg39 - 99 mg/dLBON [facility] HEALTHInterpretation and review of laboratory resultsAbnormalBON [facility] HEALTHPotassium [Moles/Vol]4.6 mmol/L3.7 - 5.3 mmol/LBON [facility] HEALTHSodium [Moles/Vol] 137 mmol/L135 - 144 mmol/LBON [facility] HEALTHUrea nitrogen [Mass/Vol]23 mg/dLHigh6 - 20 mg/dLBON [facility]CY HEALTHBON [facility] HOSPITALBasic Metabolic Profon 11-43-9722Qyria gap [Moles/Vol]9 mmol/LNormal9-17[facility] State Health SystemComment on above:Performed By: #### PT, GLYHGB, CDP #### [facility] [employer] [address] [place] [address] 15575 Antique Refinisher: MELLY Pereyraalcium [Mass/Vol]10.0 mg/dLNormal8.6-10.4[facility] State Health SystemComment on above:Performed By: #### PT, GLYHGB, CDP #### [facility] [employer] [address] [place] [address] Antique Refinisher: MELLY Pereyrahloride [Moles/Vol]107 mmol/VIfuwad92-680HinmdOhio State Health SystemComment on above:Performed By: #### PT GLYHGB, CDP #### [facility] HospitalV[facility] [address] [place] [address] 98409 Antique Refinisher: Vincent Sy MDCO2 [Moles/Vol]21 mmol/ZZitnar78-42HqxziOhio State Health SystemComment on above:Performed By: #### PT, GLYHGB, CDP #### [facility] [employer] [address] [place] [address] 12071 Antique Refinisher: MELLY Pereyrareatinine [Mass/Vol]1.65 mg/dLHigh0.70-1.20 [facility] Health SystemComment on above:Performed By: #### PT, GLYHGB, CDP #### [facility] [employer] [address] [place] [address] 02889 Antique Refinisher: Vincent Sy MDGFR/1.73 sq M.predicted among non-blacks MDRD (S/P/Bld) [Vol rate/Area]55 mL/min/{1.73_m2}Low>60[facility] State Health SystemComment on above:Result Comment: These results are not intended for [...] or following therapy that affects renal tubular secretion.Performed By: #### PT GLYHGB, CDP #### [facility] [address] [place] [address] 81316 Antique Refinisher: Vincent Sy MDGlucose [Mass/Vol]125 mg/cSHvll50-11QcxhuParkview Community Hospital Medical CenterComment on above:Performed By: #### PT GLYHGB, CDP #### [facility] [address] [place] [address] 47078 Antique Refinisher: DOLLY Pereyraotassium [Moles/Vol]4.6 mmol/LNormal3.7-5.3 [facility] SystemComment on above:Performed By: #### PT GLYHGB, CDP #### [facility] [address] [place] [address] 20754 Antique Refinisher: LISA Pereyraodium [Moles/Vol]137 mmol/DSvcuea138-299FlxpmOhio State Health SystemComment on above:Performed By: #### PT, GLYHGB, CDP #### [facility] [address] [place] [address] 55940 Antique Refinisher: Vincent Sy MDUrea nitrogen [Mass/Vol]23 mg/dLHigh6-20[facility] State Health SystemComment on above:Performed By: #### PT GLYHGB, CDP #### [facility] [address] [place] [address] 38528 Antique Refinisher: Vincent Sy MDHemoglobin A1Con 23-98-2830Zcipqei [Mass/Vol]243 mg/dLNormalOhio State Health SystemComment on above:Result Comment: The ADA and AACC recommend providing the estimated average glucose result to permit better patient understanding of their HBA1c result.Performed By: #### PT, GLYHGB, CDP #### [facility] [address] [place] [address] 84226 Antique Refinisher: Vincent Sy MDHbA1c (Bld) [Mass fraction]10.1 %High4.0-6.0 [facility] Health SystemComment on above:Performed By: #### PT, GLYHGB, CDP #### [facility] [address] [place] [address] 07588 Antique Refinisher: Vincent Sy MDHemoglobin A1con 76-36-3109Trhazyz glucose Estimated from glycated hemoglobin (Bld) [Mass/Vol]243 mg/dLBON [facility] URBANA HOSPITALHbA1c (Bld) [Mass fraction]10.1 %High4.0 - 6.0 %[facility] Interpretation and review of laboratory resultsAbnormCentra Southside Community HospitalMRSA DNA Probe, Nasalon 61-72-9637Clqnwjksmvutfh and review of laboratory resultsAbnormalRESTON HOSPITAL CENTERMRSA, DNA, Nasal POSITIVE: MRSA DNA detected by nucleic acid amplification.AbnormalNEGATIVERESTON HOSPITAL CENTERSpecimen Description.NASAL SWABBON AVERA GREGORY HEALTHCARE CENTERSA, DNA, Nasalon 90-22-6549JPJU, DNA, NasalPOSITIVE: MRSA DNA detected by nucleic acid amplification.AbnormalNEGOhio State Health SystemComment on above:Result Comment: Results should be used as an adjunct to nosocomial control efforts to identify patients needing enhanced precautions. The test is not intended to identify patients with staphylococcal infections. Results should not be used to guide or monitor treatment for MRSA infections. Performed By: #### PLT #### [employer] [address] [place] [address] 46895 Antique Refinisher: LISA Pereyrapecronda Description.NASAL SWABNormalOhio State Health SystemComment on above:Performed By: #### PLT #### [facility] [address] [place] [address] 49030 Antique Refinisher: Dori Pereyra Informationon 88-32-4724Nefetgwfptnarp and review of laboratory resultsAbnormHenrico Doctors' Hospital[facility] Glucose Fingerstickon 36-06-1714Kfvvcha [Mass/Vol]195 mg/dLHigh 75 - 110 mg/dLBON [facility]NA HOSPITALInterpretation and review of laboratory resultsAbnormalCJW MEDICAL CENTERGlucose [Mass/Vol]129 mg/pZAqiv41 - 110 mg/dLBON [facility] HOSPITALInterpretation and review of laboratory resultsAbnormalCJW MEDICAL CENTERGlucose [Mass/Vol]126 mg/eNZkyr88 - 110 mg/dLBON [facility] Interpretation and review of laboratory resultsAbnormCentra Southside Community HospitalGlucose [Mass/Vol]134 mg/tEStoz78 - 110 mg/dLBON [facility] HOSPITALInterpretation and review of laboratory resultsAbnormCarilion Stonewall Jackson HospitalPOCT Glucoseon 89-48-2554Dracyfz [Mass/Vol] 144 mg/wXGrpo13 - 100 mg/dLBON [facility]BANA HOSPITALUrinalysis, Routineon 27-77-4860Kxsgvkoun, SemiQt,UrNegativeGreeneNEGOhio State Health System Comment on above:Performed By: #### PT, GLYHGB, CDP #### [employer] [address] [place] [address] [phone] Antique Refinisher: Claudio Pereyra, UrineNegativeNormalNEGOhio State Health SystemComment on above:Performed By: #### PT, GLYHGB, CDP #### [facility] [address] [place] [address] [phone] Antique Refinisher: Eris Pereyra (U)ClearNormalCLEAROhio State Health SystemComment on above:Performed By: #### PT, GLYHGB, CDP #### [facility] [employer] [address] [place] [address] [phone] Antique Refinisher: MELLY Pereyraolor (U)YellowNormalYELMercy Alvarado Hospital Medical CenterComment on above:Performed By: #### PT, GLYHGB, CDP #### [facility] [address] [place] [address] 62643 Antique Refinisher: Vincent Sy MDGlucose Ql (U)3+AbnormalNEGMerMarian Regional Medical CenterComment on above:Performed By: #### PT, GLYHGB, CDP #### [facility] [address] [place] [address] 76907 Antique Refinisher: Vincent Sy MDKetones Ql (U)NegativeNormalNEGMerMarian Regional Medical CenterComment on above:Performed By: #### PT, GLYHGB, CDP #### [facility] [address] [place] [address] 74568 Antique Refinisher: Vincent Sy MDLeukocyte esterase Test strip Ql (U)Negative NormalNEGMerMarian Regional Medical CenterComment on above:Performed By: #### PT, GLYHGB, CDP #### [facility] [address] [place] [address] 95762 Antique Refinisher: Vincent Sy MDNitrite,UrNegativeNormalNEGMerMarian Regional Medical CenterComment on above:Performed By: #### PT, GLYHGB, CDP #### [facility] [address] [place] [address] 62616 Antique Refinisher: DOLLY Pereyra,Ur5.5Znbntp5.0-8.0[facility] Medical CenterComment on above:Performed By: #### PT, GLYHGB, CDP #### [facility] [address] [place] [address] 63589 Antique Refinisher: DOLLY Pereyrarotein Ql (U)3+AbnormalNEGMerMarian Regional Medical CenterComment on above:Performed By: #### PT, GLYHGB, CDP #### [facility] [address] [place] [address] 93592 Antique Refinisher: LISA Pereyrapec. [place],Ur1.742Dvpdie2.005-1.030MerMarian Regional Medical CenterComment on above:Performed By: #### PT, GLYHGB, CDP #### [facility] [address] [place] [address] 89995 Antique Refinisher: Vincent Sy MDUrobilinogen,UrNormalNormalNORMOhio State Health SystemComment on above:Performed By: #### PT, GLYHGB, CDP #### [facility] [address] [place] [address] 41132 Antique Refinisher: Vincent Sy MDUrinalysis,Microon 25-05-5036Haksh8 TO 5 HYALINE Normal0-8MerMarian Regional Medical CenterComment on above:Result Comment: Reference range defined for non-centrifuged specimen.Performed By: #### PT, GLYHGB, CDP #### [facility] [address] [place] [address] 14440 Antique Refinisher: Vincent yS MDEpithelial cells LM Ql (Urine sed)0 TO 2Normal 0-5MerMarian Regional Medical CenterComment on above:Performed By: #### PT, GLYHGB, CDP #### [facility] [address] [place] [address] 26949 Antique Refinisher: Vincent Sy MDUrine RBC's0 TO 8Msbxyz1-3SdnidMarian Regional Medical CenterComment on above:Result Comment: Reference range defined for non- centrifuged specimen.Performed By: #### PT, GLYHGB, CDP #### [facility] [address] [place] [address] 62357 Antique Refinisher: Vincent Sy MDUrine WBC's0 TO 7Rvkyrb2-7Puplt [facility]var[facility] Hospital Medical CenterComment on above:Performed By: #### PT, GLYHGB, CDP #### [facility] [address] [place] [address] [phone] Antique Refinisher: Carlos Enrique Pereyra Cultureon 21-36-0638Yhhpywnplpdvb identified Cx Nom (Unsp spec)NO SIGNIFICANT GROWTHBON [facility] Specimen Description.URINEBON SECDEPARTMENT OF VETERANS AFFAIRS TOMAH VETERANS' AFFAIRS MEDICAL CENTERAPTTon 37-41-8021yVNC Coag (Bld) [Time]50.6 sHigh23.0-36.5[facility] Hospital Medical CenterComment on above:Result Comment: NOTE: NEW REFERENCE RANGEPerformed By: #### PLT #### [facility] HospitalV[facility] Energy [address] [place], [place] [phone] Antique Refinisher: Vincent Sy MDaPTJeet Coag (Bld) [Time]50.6 sHighBON [facility] URBANA HOSPITALInterpretation and review of laboratory resultsAbnormalBON CUSTER REGIONAL HOSPITALCBC auto differentialon 15-91-6452Dsvtznns Eos #0.09BON [facility] HOSPITALAbsolute Immature Granulocyte0.07BON [facility]PITALAbsolute Lymph #3.44[facility]ITALAbsolute Winston #0.96BON SECSUMMA HEALTH BARBERTON CAMPUSBasophils (Bld) [#/Vol]0.04 10*3/uLBON [facility] Basophils/100 WBC (Bld)0 %0 - 2 %BON SECSUMMA HEALTH BARBERTON CAMPUSEosinophils/100 WBC (Bld)1 %1 - 4 %BON [facility]BA[facility] HOSPITALHematocrit (Bld) [Volume fraction]41.2 % 40.7 - 50.3 %BON [facility] URBANA HOSPITALHemoglobin (Bld) [Mass/Vol]13.9 g/dL13.0 - 17.0 g/dLBON SECSUMMA HEALTH BARBERTON CAMPUSImmature granulocytes/100 WBC (Bld)1 %Iirw8VOF [facility] HOSPITALInterpretation and review of laboratory resultsAbnormalBON MER[facility]ALTH URBANA HOSPITALLymphocytes/100 WBC (Bld)35 %24 - 43 %BON [facility] HEALTHH (RBC) [Entitic mass]29.8 pg25.2 - 33.5 pgBON SUMMA HEALTHHC (RBC) [Mass/Vol]33.7 g/dL28.4 - 34.8 g/dLBON SECSUMMA HEALTH BARBERTON CAMPUSMCV (RBC) [Entitic vol]88.2 fL82.6 - 102.9 fLRESTON HOSPITAL CENTERMonocytes/100 WBC (Bld)10 %3 - 12 %BON [facility] HOSPITALNRBC Automated0.00.0 per 100 WBCBON MER[facility] URBANA HOSPITALPlatelet distribution width (Bld) [Ratio]13.2 %11.8 - 14.4 % BON [facility]GRE[facility]HE[facility] MONROEY HEALTHPlatelet mean volume (Bld) [Entitic vol]10.6 fL8.1 - 13.5 fLBON [facility]AUREGARD [facility] HEALTHPlatelets (Bld) [#/Vol]236 10*3/uLBON [facility]UREG[facility] HEALTHRBC (Bld) [#/Vol]4.67 10*6/uL4.21 - 5.77 m/uLBON MER[facility]ALTH URBANA HOSPITALSeg Llstlmegtoh21 %36 - 65 %BON MER[facility] HEALTH URBANA HOSPITALSegs Absolute5.25BON [facility] HEALTHWBC (Bld) [#/Vol]9.9 10*3/uLBON SECOURS BARNESVILLE HOSPITALBON SECSUMMA HEALTH BARBERTON CAMPUSCBC with Diffon 90-48-3275Zsf. Basophil0.04 k/uLNormal 0.00-0.20[facility] Health SystemComment on above:Performed By: #### BRITTANEY BROWN, CDP #### [employer] [address] [place], [place] [phone] Antique Refinisher: Frankie Pereyra.Imm.Granulocyte0.07 k/uLNormal0.00-0.30[facility] Health SystemComment on above:Performed By: #### BRITTANEY BROWN, CDP #### [employer] [facility] [place] [address] Antique Refinisher: Frankie Pereyra.Neutrophil (Seg)5.25 k/uLNormal1.50-8.10 [facility] SystemComment on above:Performed By: #### BRITTANEY BROWN, CDP #### [facility] [address] [place] [address] 54147 Antique Refinisher: Vincent Sy MDBasophils/100 WBC (Bld)0 %Normal0-2MParkview Community Hospital Medical CenterComment on above:Performed By: #### PT, GLYHGB, CDP #### [facility] [address] [place] [address] 13106 Antique Refinisher: Vincent Sy MDEosinophils (Bld) [#/Vol]0.09 10*3/uLNormal 0.00-0.44[facility] SystemComment on above:Performed By: #### PT, GLYHGB, CDP #### [facility] [address] [place] [address] 89149 Antique Refinisher: Vincent Sy MDEosinophils/100 WBC (Bld)1 %Normal1-4[facility] SystemComment on above:Performed By: #### PT, GLYHGB, CDP #### [facility] [address] [place] [address] 54797 Antique Refinisher: Vincent Sy MDErythrocyte distribution width (RBC) [Ratio]13.2 %Awbonv58.8-14.4[facility] SystemComment on above:Performed By: #### PT, GLYHGB, CDP #### [facility] [address] [place] [address] 78049 Antique Refinisher: Vincent Sy MDHematocrit (Bld) [Volume fraction]41.2 %Normal 40.7-50.3MParkview Community Hospital Medical CenterComment on above:Performed By: #### PT, GLYHGB, CDP #### [facility] [address] [place] [address] 93585 Antique Refinisher: Vincent Sy MDHemoglobin (Bld) [Mass/Vol]13.9 g/dLNormal 13.0-17.0[facility] SystemComment on above:Performed By: #### PT, GLYHGB, CDP #### [facility] [address] [place] [address] 88922 Antique Refinisher: Kali Pereyrature granulocytes/100 WBC (Bld)1 %Qgwn1LfkqxOhio State Health SystemComment on above:Performed By: #### PT, GLYHGB, CDP #### [facility] [address] [place] [address] 20227 Antique Refinisher: Linda Pereyramphocytes (Bld) [#/Vol]3.44 10*3/uLNormal 1.10-3.70[facility] Health SystemComment on above:Performed By: #### PT, GLYHGB, CDP #### [facility] [employer] [address] [place] [address] 38804 Antique Refinisher: Linda Pereyramphocytes/100 WBC (Bld)35 %Lisjvl81-28PrmmvOhio State Health SystemComment on above:Performed By: #### PT, GLYHGB, CDP #### [address] [address] Antique Refinisher: JODEE PereyraCH (RBC) [Entitic mass]29.8 tuWkzfcj67.2-33.5 [facility] SystemComment on above:Performed By: #### PT, GLYHGB, CDP #### [address] [address] Antique Refinisher: JODEE PereyraCHC (RBC) [Mass/Vol]33.7 g/tLBjuthn79.4-34.8 [facility] SystemComment on above:Performed By: #### PT, GLYHGB, CDP #### [facility] [address] [place] [address] 29256 Antique Refinisher: JODEE PereyraCV (RBC) [Entitic vol]88.2 dWTdhrhq95.6-102.9 [facility] SystemComment on above:Performed By: #### PT, GLYHGB, CDP #### [address] [address] Antique Refinisher: Vincent Sy MDMonocytes (Bld) [#/Vol]0.96 10*3/uLNormal 0.10-1.20[facility] SystemComment on above:Performed By: #### PT, GLYHGB, CDP #### [facility] [employer] [address] [place] [address] 14852 Antique Refinisher: JODEE Pereyraonocytes/100 WBC (Bld)10 %Normal3-12[facility] SystemComment on above:Performed By: #### PT, GLYHGB, CDP #### [place] [address] Antique Refinisher: Starr Pereyraophil (Seg)53 %Wikppi38-61JsxtpOhio State Health SystemComment on above:Performed By: #### PT, GLYHGB, CDP #### [place] [address] Antique Refinisher: Vincent Sy MDNRBC Automated0.0 per 100 WBCNormal0.0[facility] State Health SystemComment on above:Performed By: #### PT, GLYHGB, CDP #### [place] [address] Antique Refinisher: DOLLY Pereyralatelet mean volume (Bld) [Entitic vol]10.6 fL Normal8.1-13.5[facility] Health SystemComment on above:Performed By: #### PT, GLYHGB, CDP #### [facility] [employer] [address] [place] [address] 09271 Antique Refinisher: Vincent Sy MDPlatelets (Bld) [#/Vol]236 10*3/zIBvqozp131-908 [facility] SystemComment on above:Performed By: #### PT GLYHGB, CDP #### [facility] [address] [place] [address] Antique Refinisher: MARSHA Pereyra ([facility]) [#/Vol]4.67 10*6/uLNormal4.21-5.77 [facility] SystemComment on above:Performed By: #### PT, GLYHGB, CDP #### [facility] [address] [place] [address] Antique Refinisher: DE Pereyra ([facility]) [#/Vol]9.9 10*3/uLNormal3.5-11.3Muniversity hospitals [facility] medical centery [facility] Hospital Medical CenterComment on above:Performed By: #### PT, GLYHGB, CDP #### [facility] [employer] [address] [place] [address] 92704 Antique Refinisher: Hernesto Pereyraroscopic Urinalysison 98-27-0954Drraj UA2 TO 5 HYALINE Reference range defined for non-centrifuged specimen.[facility]PITAL CENTEREpithelial Cells UA0 TO 2BON [facility] clumps Auto (Urine sed) [#/Area]0 TO 2BON [facility]RON CAMPUSBC, UA0 TO 2BON [facility]PO Glucose Fingerstickon 95-52-0763Luopbqf [Mass/Vol] 270 mg/vALatm79 - 110 mg/dLBON [facility] HOSPITALInterpretation and review of laboratory resultsAbnormCarilion [facility]wall Jackson Hospital Glucose [Mass/Vol]276 mg/xRHtqz27 - 110 mg/dLBON [facility] Interpretation and review of laboratory resultsAbnormCentra Southside Community HospitalGlucose [Mass/Vol]182 mg/mHPawj21 - 110 mg/dLBON [facility] HOSPITALInterpretation and review of laboratory resultsAbnormalCJW MEDICAL CENTERGlucose [Mass/Vol]158 mg/kGTglg37 - 110 mg/dLBON [facility] HOSPITALInterpretation and review of laboratory results AbnormalBON CUSTER REGIONAL HOSPITALPTon 22-30-1951YQG Coag (PPP) [Relative time]1.0 {INR}NormalOhio State Health SystemComment on above:Result Comment: Therapeutic Range: Moderate Anticoagulant Intensity: INR = 2.0-3.0 High Anticoagulant Intensity: INR = 2.5-3.5Performed By: #### PT, GLYHGB, CDP #### [employer] [address] [place] [address] 10078 Antique Refinisher: LALO Pereyra Coag (PPP) [Time]13.3 kMjgckh00.7-14.9[facility] Health SystemComment on above:Result Comment: NOTE: NEW REFERENCE RANGEPerformed By: #### PT, GLYHGB, CDP #### [employer] [address] [place] [address] [phone] Antique Refinisher: Jeffrey Pereyra Counton 95-95-3316Bpmvaxhdm (Bld) [#/Vol]228 10*3/cLAedlxa389-717RwktyOhio State Health SystemComment on above: Performed By: #### BMP, MG, CBC, PT, PTT #### [employer] [address] [place] [address] [phone] Antique Refinisher: Thu Pereyra (Bld) [#/Vol]228 10*3/uLBON CUSTER REGIONAL HOSPITALProtime-INRon 96-05-3668DCH Coag (PPP) [Relative time]1.0 {INR}BON [facility] HOSPITALPT Coag (PPP) [Time]13.3 sBON CUSTER REGIONAL HOSPITALUrinalysison 87-07-2221Bsgdzjqba UrineNegativeNEGATIVERESTON HOSPITAL CENTERColor, UAYellowYellowRESTON HOSPITAL CENTERGlucose Auto test strip (U) [Mass/Vol]3+AbnormalNEGATIVERESTON HOSPITAL CENTERInterpretation and review of laboratory resultsAbnormalBON SECMARIA [facility]LENA [facility] HEALTHKetones (U) [Mass/Vol]NegativeNEGATIVEBON SECSUMMA HEALTH BARBERTON CAMPUS Leukocyte esterase Auto test strip Ql (U)NegativeNEGATIVEBON SECMARIA [facility]LENA [facility] HEALTHNitrite Auto test strip Ql (U)NegativeNEGATIVEBON [facility]AUREGARD [facility] HEALTH Protein (U) [Mass/Vol]5.5 mg/dL5.0 - 8.0B[facility] HEALTHProtein (U) [Mass/Vol]3+AbnormalNEGATIVEBON [facility]BEAUREGARD [facility]ITAL HEALTHSpecific [place], UA1.019 1.005 - 1.030BON [facility]MAR[facility] HEALTHTurbidity UAClearClearBON SECBEAUREGARD MEMORIAL [facility] HEALTHUrine HgbNegativeNEGATIVEBON MER[facility] URBANA HOSPITALUrobilinogen, UrineNormal NormalBON SECDEPARTMENT OF VETERANS AFFAIRS TOMAH VETERANS' AFFAIRS MEDICAL CENTERAPTTon 08-92-4436fFAO Coag (Bld) [Time]58.3 sHigh23.0-36.5[facility] State Health SystemComment on above:Result Comment: NOTE: NEW REFERENCE RANGEPerformed By: #### BMP, MG, CBC, PT, PTT #### [employer] [address] [place] [address] Antique Refinisher: Courtney Pereyra Coag (Bld) [Time]58.3 [facility] HospitalInterpretation and review of laboratory resultsAbnormalBON CUSTER REGIONAL HOSPITALBasic Metab w/rfx MGon 54-10-4280Fskwb gap [Moles/Vol]9 mmol/LNormal9-17[facility] SystemComment on above: Performed By: #### BMP, MG, CBC, PT, PTT #### [employer] [address] [place] [address] Antique Refinisher: MELLY Pereyraalcium [Mass/Vol]10.6 mg/dLHigh8.6-10.4[facility] SystemComment on above:Performed By: #### BMP, MG, CBC, PT, PTT #### [employer] [address] [place] [address] 59[address] Antique Refinisher: MELLY Pereyrahloride [Moles/Vol]107 mmol/LPrzqfd17-764XujdjOhio State Health SystemComment on above:Performed By: #### BMP, MG, CBC, PT, PTT #### [facility] [employer] [facility] [place] [address] Antique Refinisher: Vincent Sy MDCO2 [Moles/Vol]21 mmol/LGdgouz39-97QpdfaOhio State Health SystemComment on above:Performed By: #### BMP, MG, CBC, PT, PTT #### [facility] [employer] [address] [place] [address] 9[address] Antique Refinisher: MELLY Pereyrareatinine [Mass/Vol]1.47 mg/dLHigh0.70-1.20 [facility] SystemComment on above:Performed By: #### BMP, MG, CBC, PT, PTT #### [facility] HospitalV[facility] [address] [place] [address] Antique Refinisher: Vincent Sy MDGFR/1.73 sq M.predicted among non-blacks MDRD (S/P/Bld) [Vol rate/Area]mL/min/{1.73_m2}Normal>60[facility] State Health SystemComment on above:Result Comment: These results are not intended for [...] or following therapy that affects renal tubular secretion.Performed By: #### BMP, MG, CBC, PT, PTT #### [facility] HospitalVadxx Energy [address] [place] [address] Antique Refinisher: Vincent Sy MDGlucose [Mass/Vol]184 mg/aBWyto73-31FoytdParkview Community Hospital Medical CenterComment on above:Performed By: #### BMP, MG, CBC, PT, PTT #### [facility] [address] [place] [address] Antique Refinisher: DOLLY Pereyraotassium [Moles/Vol]4.9 mmol/LNormal3.7-5.3 [facility] SystemComment on above:Performed By: #### BMP, MG, CBC, PT, PTT #### [facility] [address] [place] [address] Antique Refinisher: LISA Pereyraodium [Moles/Vol]137 mmol/JAucnkm325-716XtlncOhio State Health SystemComment on above:Performed By: #### BMP, MG, CBC, PT, PTT #### [facility] [address] [place] [address] Antique Refinisher: Vincent Sy MDUrea nitrogen [Mass/Vol]15 mg/dLNormal6-20[facility] Health SystemComment on above:Performed By: #### BMP, MG, CBC, PT, PTT #### [facility] [address] [place] [address] Antique Refinisher: Vincent Sy MDBapsychiatric Metabolic Panel w/ Reflex to MGon 90-75-7156Ijmod gap [Moles/Vol]9 mmol/L9 - 17 mmol/LBON SECCompuTEK Industries, LLC. Calcium [Mass/Vol]10.6 mg/dLHigh8.6 - 10.4 mg/dLBON SECOURS Nano ePrint HEALTHChloride [Moles/Vol]107 mmol/L98 - 107 mmol/LBON [facility] E-Car ClubY HEALTHCO2 [Moles/Vol]21 mmol/L20 - 31 mmol/LBON SEC[facility] JelliCreatinine [Mass/Vol]1.47 mg/dLHigh 0.70 - 1.20 mg/dLBON SECOURS E-Car ClubY CareToSaveGFR/1.73 sq M.predicted MDRD (S/P/Bld) [Vol rate/Area]- PINFBON SECCompuTEK Industries, LLC.Glucose [Mass/Vol]184 mg/fFYrru47 - 99 mg/dLBON SECCompuTEK Industries, LLC.Interpretation and review of laboratory results AbnormalBON [facility] HOSPITALPotassium [Moles/Vol]4.9 mmol/L3.7 - 5.3 mmol/L BON [facility] UR[facility] HOSPITALSodium [Moles/Vol]137 mmol/L135 - 144 mmol/LBON [facility] URBANA HOSPITALUrea nitrogen [Mass/Vol]15 mg/dL6 - 20 mg/dLBON [facility] BON [facility] HOSPITALPOC Glucose Fingerstickon 20-14-9955Zpekqlh [Mass/Vol] 210 mg/dAZsob22 - 110 mg/dLBON [facility] HOSPITALInterpretation and review of laboratory resultsAbnormalCJW [facility] Glucose [Mass/Vol]303 mg/sNReft62 - 110 mg/dLBON [facility] Interpretation and review of laboratory resultsAbnormalRESTON HOSPITAL CENTER BON [facility] HOSPITALGlucose [Mass/Vol]235 mg/fRYbbm55 - 110 mg/dLBON [facility] HOSPITALInterpretation and review of laboratory resultsAbnormalCJW MEDICAL CENTERGlucose [Mass/Vol]172 mg/tETxts25 - 110 mg/dLBON [facility] HOSPITALInterpretation and review of laboratory results AbnormalBON [facility] 39-89-4986fWEA Coag (Bld) [Time]54.7 sHigh23.0-36.5[facility] Health SystemComment on above:Result Comment: NOTE: NEW REFERENCE RANGEPerformed By: #### BMP, MG, CBC, PT, PTT #### [employer] [address] [place] [address] [phone] Antique Refinisher: Vincent Sy MDaPTT Coag (Bld) [Time]54.7 sHighBON [facility] URBANA HOSPITALInterpretation and review of laboratory resultsAbnormalCJW MEDICAL CENTERaPTT Coag (Bld) [Time]60.3 sHigh23.0-36.5 [facility] SystemComment on above:Result Comment: NOTE: NEW REFERENCE RANGEPerformed By: #### PLT #### [employer] [address] [place] [address] Antique Refinisher: Vincent Sy MDaPTT Coag (Bld) [Time]60.3 sHighBON [facility]BA[facility] HOSPITALInterpretation and review of laboratory resultsAbnormalBON CUSTER REGIONAL HOSPITALaPTT Coag (Bld) [Time]45.5 sHigh23.0-36.5 [facility] SystemComment on above:Result Comment: NOTE: NEW REFERENCE RANGEPerformed By: #### PT, GLYHGB, CDP #### [address] [address] Antique Refinisher: Tim Pereyra Metab w/rfx MGon 72-31-1333Fqljn gap [Moles/Vol]10 mmol/LNormal9-17[facility] Health SystemComment on above: Performed By: #### PLT #### [facility] [employer] [address] [place] [address] Antique Refinisher: Vincent Sy MDCalcium [Mass/Vol]10.0 mg/dLNormal8.6-10.4[facility] Health SystemComment on above:Performed By: #### PLT #### [facility] [employer] [address] [place] [address] Antique Refinisher: Vincent Sy MDChloride [Moles/Vol]107 mmol/SFhmfgk76-541XvgxwOhio State Health SystemComment on above:Performed By: #### PLT #### [facility] [employer] [address] [place] [address] Antique Refinisher: Vincent Sy MDCO2 [Moles/Vol]19 mmol/LYds72-16EcvhzOhio State Health SystemComment on above:Performed By: #### PLT #### [facility] [employer] [address] [place] [address] Antique Refinisher: MELLY Pereyrareatinine [Mass/Vol]1.41 mg/dLHigh0.70-1.20 [facility] SystemComment on above:Performed By: #### PLT #### [place] [address] Antique Refinisher: Vincent Sy MDGFR/1.73 sq M.predicted among non-blacks MDRD (S/P/Bld) [Vol rate/Area]mL/min/{1.73_m2}Normal>60[facility] Health SystemComment on above:Result Comment: These results are not intended for [...] or following therapy that affects renal tubular secretion.Performed By: #### PLT #### [place] [address] Antique Refinisher: Vincent Sy MDGlucose [Mass/Vol]163 mg/cOTpdk70-13MaitpParkview Community Hospital Medical CenterComment on above:Performed By: #### PLT #### [place] [address] Antique Refinisher: Vincent Sy MDPotassium [Moles/Vol]4.4 mmol/LNormal3.7-5.3 [facility] SystemComment on above:Performed By: #### PLT #### [facility] [employer] [address] [place] [address] Antique Refinisher: Vincent Sy MDSodium [Moles/Vol]136 mmol/MEkrclq413-178SqocdOhio State Health SystemComment on above:Performed By: #### PLT #### [place] [address] Antique Refinisher: Vincent Sy MDUrea nitrogen [Mass/Vol]16 mg/dLNormal6-20[facility] Health SystemComment on above:Performed By: #### PLT #### [facility] [address] [place] [phone] Antique Refinisher: Vincent yS MDCharlotte [facility] Metabolic Panel w/ Reflex to MGon 05-67-1043Nczwn gap [Moles/Vol]10 mmol/L9 - 17 mmol/LBON [facility] Calcium [Mass/Vol]10.0 mg/dL8.6 - 10.4 mg/dLBON [facility] HEALTHChloride [Moles/Vol]107 mmol/L98 - 107 mmol/LBON [facility]UREG[facility] HEALTHCO2 [Moles/Vol]19 mmol/LLow20 - 31 mmol/LBON [facility] HOSPITALCreatinine [Mass/Vol]1.41 mg/dL High0.70 - 1.20 mg/dLBON [facility] URBANA HOSPITALGFR/1.73 sq M.predicted MDRD (S/P/Bld) [Vol rate/Area]- PINFBON [facility]BANA HOSPITALGlucose [Mass/Vol]163 mg/aTYwff17 - 99 mg/dLBON [facility] HOSPITALInterpretation and review of laboratory resultsAbnormalRESTON HOSPITAL CENTERPotassium [Moles/Vol]4.4 mmol/L3.7 - 5.3 mmol/LBON [facility] URBA[facility] HOSPITALSodium [Moles/Vol]136 mmol/L135 - 144 mmol/LBON [facility] URBANA HOSPITALUrea nitrogen [Mass/Vol]16 mg/dL6 - 20 mg/dL BON [facility]ITALPO Glucose Fingerstickon 61-58-9134Xckgpho [Mass/Vol]212 mg/eXBgle57 - 110 mg/dLBON [facility] HEALTH Interpretation and review of laboratory resultsAbnormalLEWISGALE [facility]ITAL [facility] BON [facility] HEALTHGlucose [Mass/Vol]254 mg/pURzzo63 - 110 mg/dLBON [facility] HEALTHInterpretation and review of laboratory resultsAbnormalBON SEC[facility] SECBEAUREGARD [facility] HEALTHGlucose [Mass/Vol]231 mg/bQPxdi11 - 110 mg/dLBON [facility] HEALTHInterpretation and review of laboratory results AbnormalBON SECOURS [facility] MICHAEL HOSPITALGlucose [Mass/Vol]163 mg/uTTugr38 - 110 mg/dLBON [facility] HEALTHInterpretation and review of laboratory resultsAbnormalCJ[facility] Platelet Counton 99-15-1448Bgltlilky (Bld) [#/Vol]201 10*3/cAYluxuj771-298BxshdOhio State Health SystemComment on above:Performed By: #### PLT #### [employer] [address] [place], [place] [phone] Antique Refinisher: DOLLY Pereyralatelets (Bld) [#/Vol]201 10*3/uLINOVA WOMEN'S HOSPITALTon 61-26-8953nVEL Coag (Bld) [Time]45.5 sHighBON [facility] URBANA HOSPITALInterpretation and review of laboratory results AbnormalCJW MEDICAL CENTERaPTT Coag (Bld) [Time] 53.5 sHigh23.0-36.5[facility] Health SystemComment on above:Result Comment: NOTE: NEW REFERENCE RANGEPerformed By: #### PT, GLYHGB, CDP #### [employer] [address] [place] [address] Antique Refinisher: Vincent Sy MDaPTJeet Coag (Bld) [Time]53.5 sHighBON [facility] URBANA HOSPITALInterpretation and review of laboratory resultsAbnormCarilion Stonewall Jackson HospitalaPTT Coag (Bld) [Time]102.9 sCritically high 23.0-36.5[facility] Health SystemComment on above:Result Comment: NOTE: NEW REFERENCE RANGEPerformed By: #### BMP, MG, CBC, PT, PTT #### [employer] [address] [place], [place] [phone] Antique Refinisher: Vincent Sy MDaPTT Coag (Bld) [Time]102.9 sCritically highRESTON HOSPITAL CENTERInterpretation and review of laboratory resultsAbnormalCJW MEDICAL CENTERaPTT Coag (Bld) [Time]40.0 sHigh 23.0-36.5[facility] SystemComment on above:Result Comment: NOTE: NEW REFERENCE RANGEPerformed By: #### BMP, MG, CBC, PT, PTT #### [facility] [employer] [address] [place] [address] Antique Refinisher: Tim Pereyra Metab w/rfx MGon 08-02-9302Pjloe gap [Moles/Vol]8 mmol/LLow9-17[facility] SystemComment on above: Performed By: #### BMP, MG, CBC, PT, PTT #### [place] [address] Antique Refinisher: Vincent Sy MDCalcium [Mass/Vol]9.5 mg/dLNormal8.6-10.4[facility] SystemComment on above:Performed By: #### BMP, MG, CBC, PT, PTT #### [facility] [employer] [address] [place] [address] Antique Refinisher: MELLY Pereyrahloride [Moles/Vol]108 mmol/HHiux62-407JhcknOhio State Health SystemComment on above:Performed By: #### BMP, MG, CBC, PT, PTT #### [facility] [employer] [address] [place] [address] Antique Refinisher: Vincent Sy MDCO2 [Moles/Vol]21 mmol/MThxlmq58-53RgnfiOhio State Health SystemComment on above:Performed By: #### BMP, MG, CBC, PT, PTT #### [facility] [employer] [address] [place] [address] Antique Refinisher: Vincent Sy MDCreatinine [Mass/Vol]1.56 mg/dLHigh0.70-1.20 [facility] SystemComment on above:Performed By: #### BMP, MG, CBC, PT, PTT #### [facility] [employer] [address] [place] [address] Antique Refinisher: Vincent Sy MDGFR/1.73 sq M.predicted among non-blacks MDRD (S/P/Bld) [Vol rate/Area]58 mL/min/{1.73_m2}Low>60[facility] SystemComment on above:Result Comment: These results are not intended for [...] or following therapy that affects renal tubular secretion.Performed By: #### BMP, MG, CBC, PT, PTT #### [facility] [employer] [address] [place] [address] Antique Refinisher: Vincent Sy MDGlucose [Mass/Vol]209 mg/sFVshe96-08SsveoParkview Community Hospital Medical CenterComment on above:Performed By: #### BMP, MG, CBC, PT, PTT #### [facility] [employer] [address] [place] [address] Antique Refinisher: Vincent Sy MDPotassium [Moles/Vol]4.3 mmol/LNormal3.7-5.3 [facility] SystemComment on above:Performed By: #### BMP, MG, CBC, PT, PTT #### [facility] HospitalLocal [facility] [address] [place] [address] Antique Refinisher: Vincent Sy MDSodium [Moles/Vol]137 mmol/LPtpeds874-088DvudyOhio State Health SystemComment on above:Performed By: #### BMP, MG, CBC, PT, PTT #### [facility] [employer] [address] [place] [address] Antique Refinisher: Vincent Sy MDUrea nitrogen [Mass/Vol]19 mg/dLNormal6-20[facility] SystemComment on above:Performed By: #### BMP, MG, CBC, PT, PTT #### [facility] [address] [place], [place] [phone] Antique Refinisher: Tim Pereyra Metabolic Panel w/ Reflex to MGon 67-09-8063Kuxcp gap [Moles/Vol]8 mmol/LLow9 - 17 mmol/LBON [facility] Calcium [Mass/Vol]9.5 mg/dL8.6 - 10.4 mg/dLBON [facility] URBANA HOSPITALChloride [Moles/Vol]108 mmol/LHigh98 - 107 mmol/LBON [facility] URBA[facility] HOSPITALCO2 [Moles/Vol] 21 mmol/L20 - 31 mmol/LBON [facility] HOSPITALCreatinine [Mass/Vol]1.56 mg/dL High0.70 - 1.20 mg/dLBON [facility] URBA[facility] HOSPITALGFR/1.73 sq M.predicted MDRD (S/P/Bld) [Vol rate/Area]58 mL/min/{1.73_m2}Low- PINFBON [facility] Glucose [Mass/Vol]209 mg/mXIqif70 - 99 mg/dLBON [facility] Interpretation and review of laboratory resultsAbnormalRESTON HOSPITAL CENTER Potassium [Moles/Vol]4.3 mmol/L3.7 - 5.3 mmol/LBON [facility] URBA[facility] HOSPITALSodium [Moles/Vol]137 mmol/L135 - 144 mmol/LBON [facility] URBANA HOSPITALUrea nitrogen [Mass/Vol]19 mg/dL6 - 20 mg/dLBON [facility] URBANA HOSPITALBON [facility] Calcium, Ionicon 44-60-9127Wwkfoxp [Moles/Vol]1.40 mmol/LHigh1.13-1.33[facility] SystemComment on above:Performed By: #### BMP, MG, CBC, PT, PTT #### [facility] [address] [place], [place] [phone] Antique Refinisher: Roscoe Pereyraium, Ionizedon 98-00-9693Icliwre.ionized (Bld) [Moles/Vol]1.4 mmol/LHigh1.13 - 1.33 mmol/LBON [facility] Interpretation and review of laboratory resultsAbnormCentra Southside Community HospitalPOC Glucose Fingerstickon 91-38-4623Rcphksx [Mass/Vol] 276 mg/bMEuvz89 - 110 mg/dLBON [facility] HOSPITALInterpretation and review of laboratory resultsAbnormalCJ[facility] Glucose [Mass/Vol]215 mg/cCJwqr36 - 110 mg/dLBON [facility] Interpretation and review of laboratory resultsAbnormCentra Southside Community HospitalGlucose [Mass/Vol]208 mg/dORsmo27 - 110 mg/dLBON [facility]OSPITALInterpretation and review of laboratory resultsAbnormCarilion Stonewall Jackson HospitalGlucose [Mass/Vol]192 mg/vGWvaw13 - 110 mg/dLBON [facility] HOSPITALInterpretation and review of laboratory results AbnormalBON CUSTER REGIONAL HOSPITALVL DUP CAROTID BILATERAL on 32-50-3393UMGY [facility] Work Phone: vl DUP CAROTID BILATERALOrdered By: Sony Toro on 01-04-6428LHZ [facility] Work Phone: vl DUP UPPER EXTREMITY ARTERIES BILATERALon 05-27-[address] [facility] Work Phone: bon [facility] Work Phone: vl VEIN MAPPING LOWER BILATERALon 22-78-1237NCLA [facility] Work Phone: bon [facility] Work Phone: aPTTon 86-71-5419fIZJ Coag (Bld) [Time]40.0 sHighBON [facility]BA[facility] HOSPITALInterpretation and review of laboratory resultsAbnoDe Smet Memorial HospitalaPTT Coag (Bld) [Time]52.9 sHigh 23.0-36.5[facility] Health SystemComment on above:Result Comment: NOTE: NEW REFERENCE RANGEPerformed By: #### PTT #### [facility] HospitalVadxx Energy [address] [place] [address] Antique Refinisher: Vincent Sy MDaPTT Coag (Bld) [Time]52.9 [facility] HospitalInterpretation and review of laboratory resultsAbnoDe Smet Memorial HospitalaPTT Coag (Bld) [Time]62.9 sHigh23.0-36.5 [facility] SystemComment on above:Result Comment: NOTE: NEW REFERENCE RANGEPerformed By: #### PT, GLYHGB, CDP #### [facility] HospitalV[facility] [address] [place] [address] Antique Refinisher: Vincent Sy MDaPTT Coag (Bld) [Time]62.9 [facility] HospitalInterpretation and review of laboratory resultsAbnoDe Smet Memorial HospitalBasic Metab w/rfx MGon 51-35-6980Ccpty gap [Moles/Vol]9 mmol/LNormal9-17[facility] SystemComment on above: Performed By: #### PT, GLYHGB, CDP #### [facility] HospitalV[facility] [address] [place], [place] [phone] Antique Refinisher: MELLY Pereyraalcium [Mass/Vol]9.4 mg/dLNormal8.6-10.4[facility] SystemComment on above:Performed By: #### PT, GLYHGB, CDP #### [facility] HospitalV[facility] [address] [place] [address] [phone] Antique Refinisher: Vincent Sy MDChloride [Moles/Vol]109 mmol/YWddr50-512BhjafOhio State Health SystemComment on above:Performed By: #### PT, GLYHGB, CDP #### [facility] HospitalV[facility] [address] [place], [place] [phone] Antique Refinisher: Vincent Sy MDCO2 [Moles/Vol]23 mmol/LWxewnr91-07UqhfaOhio State Health SystemComment on above:Performed By: #### BRITTANEY BROWN, CDP #### [facility] [employer] [address] [place] [address] Antique Refinisher: MELLY Pereyrareatinine [Mass/Vol]1.55 mg/dLHigh0.70-1.20 [facility] SystemComment on above:Performed By: #### STEPHANIE GLYLEOBARDO, CDP #### [facility] [employer] [address] [place] [address] Antique Refinisher: Vincent Sy MDGFR/1.73 sq M.predicted among non-blacks MDRD (S/P/Bld) [Vol rate/Area]59 mL/min/{1.73_m2}Low>60[facility] SystemComment on above:Result Comment: These results are not intended for [...] or following therapy that affects renal tubular secretion.Performed By: #### BRITTANEY BROWN, CDP #### [facility] HospitalV[facility] [address] [place] [address] Antique Refinisher: Vincent Sy MDGlucose [Mass/Vol]212 mg/cDKolx96-90MtwxnParkview Community Hospital Medical CenterComment on above:Performed By: #### BRITTANEY BROWN, CDP #### [facility] [employer] [address] [place] [address] Antique Refinisher: DOLLY Pereyraotassium [Moles/Vol]4.3 mmol/LNormal3.7-5.3 [facility] SystemComment on above:Performed By: #### PT, GLYHGB, CDP #### [facility] [address] [place] [address] Antique Refinisher: LISA Pereyraodium [Moles/Vol]141 mmol/XLdpsla269-420IgpcoOhio State Health SystemComment on above:Performed By: #### PT, GLYHGB, CDP #### [facility] [address] [place], [place] [phone] Antique Refinisher: Vincent Sy MDUrea nitrogen [Mass/Vol]18 mg/dLNormal6-20[facility] SystemComment on above:Performed By: #### PT, GLYHGB, CDP #### [facility] [address] [place], [place] [phone] Antique Refinisher: Mike Pereyrasiabilio Metabolic Panel w/ Reflex to MGon 34-93-8525Ctxyg gap [Moles/Vol]9 mmol/L9 - 17 mmol/LBON SECYo[employer] HEALTH Calcium [Mass/Vol]9.4 mg/dL8.6 - 10.4 mg/dLBON SECHealth Impact Solutions MERCAvaamo HEALTHChloride [Moles/Vol]109 mmol/LHigh98 - 107 mmol/LBON [facility] [employer] e[employer] HEALTHCO2 [Moles/Vol] 23 mmol/L20 - 31 mmol/LBON [facility] JelliCreatinine [Mass/Vol]1.55 mg/dL High0.70 - 1.20 mg/dLBON SEC[facility]RS E-Car ClubY HEALTHGFR/1.73 sq M.predicted MDRD (S/P/Bld) [Vol rate/Area]59 mL/min/{1.73_m2}Low- PINFBON SECCompuTEK Industries, LLC. Glucose [Mass/Vol]212 mg/kQKlxm06 - 99 mg/dLBON SECYoink Games HEALTH Interpretation and review of laboratory resultsAbnormalBON SECOURS E-Car ClubY HEALTH Potassium [Moles/Vol]4.3 mmol/L3.7 - 5.3 mmol/LBON [facility] [employer] ePrint HEALTHSodium [Moles/Vol]141 mmol/L135 - 144 mmol/LBON [facility] [employer] e[employer] HEALTHUrea nitrogen [Mass/Vol]18 mg/dL6 - 20 mg/dLBON [facility] Catheterization and angiography procedure details panelon 31-50-4844LXGO STV CPACSBON [facility] Work Phone: bon [facility] Work Phone: bon [facility] Work Phone: poc Glucose Fingerstickon 19-19-3476Bpvwebp [Mass/Vol] 264 mg/dCPqrl38 - 110 mg/dLBON [facility] HOSPITALInterpretation and review of laboratory resultsAbnormCarilion [facility] Glucose [Mass/Vol]165 mg/oOQjgj11 - 110 mg/dLBON [facility] Interpretation and review of laboratory resultsAbnormSentara Williamsburg [facility] BON [facility] HOSPITALGlucose [Mass/Vol]211 mg/mCOfcr99 - 110 mg/dLBON [facility] HOSPITALInterpretation and review of laboratory resultsAbnormalCJW MEDICAL CENTERGlucose [Mass/Vol]200 mg/qQTulw83 - 110 mg/dLBON [facility] HOSPITALInterpretation and review of laboratory results AbnormalBON CUSTER REGIONAL HOSPITALAPTCopper Springs Hospital 17-88-9849jJSB Coag (Bld) [Time]67.4 sHigh23.0-36.5[facility] SystemComment on above:Result Comment: NOTE: NEW REFERENCE RANGEPerformed By: #### BMP, MG, CBC, PT, PTT #### [employer] [address] [place] [address] Antique Refinisher: Courtney Pereyra Coag (Bld) [Time]67.4 sHighBON [facility]BANA HOSPITALInterpretation and review of laboratory resultsAbnoDe Smet Memorial HospitalBasic Metab w/rfx MGon 64-97-0321Hjiyz gap [Moles/Vol]9 mmol/LNormal9-17[facility] SystemComment on above: Performed By: #### BMP, MG, CBC, PT, PTT #### [facility] [place] [address] Antique Refinisher: MELLY Pereyraalcium [Mass/Vol]9.6 mg/dLNormal8.6-10.4[facility] SystemComment on above:Performed By: #### BMP, MG, CBC, PT, PTT #### [facility] [address] [place] [address] Antique Refinisher: Vincent Sy MDChloride [Moles/Vol]102 mmol/KWnpnkm53-539QefazOhio State Health SystemComment on above:Performed By: #### BMP, MG, CBC, PT, PTT #### [facility] [address] [place] [address] Antique Refinisher: Vincent Sy MDCO2 [Moles/Vol]23 mmol/ZVjsaxc82-53ZfftoOhio State Health SystemComment on above:Performed By: #### BMP, MG, CBC, PT, PTT #### [facility] [address] [place] [address] Antique Refinisher: MELLY Pereyrareatinine [Mass/Vol]1.70 mg/dLHigh0.70-1.20 [facility] SystemComment on above:Performed By: #### BMP, MG, CBC, PT, PTT #### [employer] [address] [place] [address] Antique Refinisher: Vincent Sy MDGFR/1.73 sq M.predicted among non-blacks MDRD (S/P/Bld) [Vol rate/Area]53 mL/min/{1.73_m2}Low>60[facility] SystemComment on above:Result Comment: These results are not intended for [...] or following therapy that affects renal tubular secretion.Performed By: #### BMP, MG, CBC, PT, PTT #### [facility] HospitalLocal [facility] [address] [place] [address] Antique Refinisher: Vincent Sy MDGlucose [Mass/Vol]287 mg/oQXyld62-48HhjhsParkview Community Hospital Medical CenterComment on above:Performed By: #### BMP, MG, CBC, PT, PTT #### [facility] [employer] [address] [place] [address] Antique Refinisher: DOLLY Pereyraotassium [Moles/Vol]3.9 mmol/LNormal3.7-5.3 [facility] SystemComment on above:Performed By: #### BMP, MG, CBC, PT, PTT #### [facility] HospitalV[facility]xx Energy [address] [place] [address] Antique Refinisher: LISA Pereyraodium [Moles/Vol]134 mmol/UYil624-371TfsxyOhio State Health SystemComment on above:Performed By: #### BMP, MG, CBC, PT, PTT #### [facility] HospitalV[facility] [address] [place] [address] Antique Refinisher: Vincent Sy MDUrea nitrogen [Mass/Vol]25 mg/dLHigh6-20[facility] SystemComment on above:Performed By: #### BMP, MG, CBC, PT, PTT #### [facility] [employer] [address] [place] [address] Antique Refinisher: Vincent Sy MDBapsychiatric Metabolic Panel w/ Reflex to MGon 29-49-7489Nzrhg gap [Moles/Vol]9 mmol/L9 - 17 mmol/LBON [facility] Calcium [Mass/Vol]9.6 mg/dL8.6 - 10.4 mg/dLBON [facility] HEALTHChloride [Moles/Vol]102 mmol/L98 - 107 mmol/LBON [facility] HEALTHCO2 [Moles/Vol]23 mmol/L20 - 31 mmol/LBON [facility] HOSPITALCreatinine [Mass/Vol]1.7 mg/dLHigh 0.70 - 1.20 mg/dLBON [facility] URBA[facility] HOSPITALGFR/1.73 sq M.predicted MDRD (S/P/Bld) [Vol rate/Area]53 mL/min/{1.73_m2}Low- PINFBON [facility] HOSPITALGlucose [Mass/Vol]287 mg/lVDwnh78 - 99 mg/dLBON [facility] HOSPITALInterpretation and review of laboratory resultsAbnormalBON [facility] HOSPITALPotassium [Moles/Vol]3.9 mmol/L3.7 - 5.3 mmol/LBON SECSUMMA HEALTH BARBERTON CAMPUSSodium [Moles/Vol] 134 mmol/TRpi768 - 144 mmol/LBON [facility] URBANA HOSPITALUrea nitrogen [Mass/Vol]25 mg/dLHigh6 - 20 mg/dLBON [facility] HOSPITALCBC with Auto Differentialon 98-06-7972Towbxvhk Eos #0.21BON [facility]ITALAbsolute Immature Granulocyte0.05BON [facility]ITALAbsolute Lymph #4.07HighBON [facility]ITALAbsolute Winston #0.62BON [facility] HOSPITALBasophils (Bld) [#/Vol]0.03 10*3/uLBON [facility]OSPITALBasophils/100 WBC (Bld)0 %0 - 2 %[facility]ENTEREosinophils/100 WBC (Bld)3 %1 - 4 %[facility] Hematocrit (Bld) [Volume fraction]37.5 %Low40.7 - 50.3 %[facility] Hemoglobin (Bld) [Mass/Vol]12.8 g/dLLow13.0 - 17.0 g/dLBON [facility] Immature granulocytes/100 WBC (Bld)1 %Hlmt5MVWRESTON HOSPITAL CENTER Interpretation and review of laboratory resultsAbnormalRESTON HOSPITAL CENTER Lymphocytes/100 WBC (Bld)47 %High24 - 43 %[facility]H (RBC) [Entitic mass]29.6 pg25.2 - 33.5 pgBON [facility]ALTHHC (RBC) [Mass/Vol] 34.1 g/dL28.4 - 34.8 g/dLBON SUMMA HEALTHV (RBC) [Entitic vol]86.8 fL 82.6 - 102.9 fLRESTON HOSPITAL CENTERMonocytes/100 WBC (Bld)7 %3 - 12 %[facility] CENTERNRBC Automated0.00.0 per 100 WBCRESTON HOSPITAL CENTER Platelet distribution width (Bld) [Ratio]13.2 %11.8 - 14.4 %BON [facility] HOSPITALPlatelet mean volume (Bld) [Entitic vol]11.1 fL8.1 - 13.5 fLRESTON HOSPITAL CENTERPlatelets (Bld) [#/Vol]189 10*3/uLBON [facility] HOSPITALRBC (Bld) [#/Vol]4.32 10*6/uL4.21 - 5.77 m/uLRESTON HOSPITAL CENTERSeg Nthnxfctond86 %36 - 65 %BON [facility]OS[facility]ITALSegs Absolute3.58BON [facility] HOSPITALWBC (Bld) [#/Vol]8.6 10*3/uLBON [facility]PITALCBC with Diffon [id number]. Basophil0.03 k/uLNormal0.00-0.20[facility] SystemComment on above:Performed By: #### BMP, MG, CBC, PT, PTT #### [facility] [employer] [address] [place] [address] Antique Refinisher: Frankie Pereyra.Imm.Granulocyte0.05 k/uLNormal0.00-0.30[facility] SystemComment on above:Performed By: #### BMP, MG, CBC, PT, PTT #### [facility] [employer] [address] [place] [address] Antique Refinisher: Frankie Pereyra.Neutrophil (Seg)3.58 k/uLNormal1.50-8.10 [facility] SystemComment on above:Performed By: #### BMP, MG, CBC, PT, PTT #### [facility] [address] [place] [address] Antique Refinisher: Vincent Sy MDBasophils/100 WBC (Bld)0 %Normal0-2MParkview Community Hospital Medical CenterComment on above:Performed By: #### BMP, MG, CBC, PT, PTT #### [facility] [address] [place] [address] Antique Refinisher: Vincent Sy MDEosinophils (Bld) [#/Vol]0.21 10*3/uLNormal 0.00-0.44[facility] SystemComment on above:Performed By: #### BMP, MG, CBC, PT, PTT #### [facility] [address] [place] [address] Antique Refinisher: REYNOLD Pereyraosinophils/100 WBC (Bld)3 %Normal1-4[facility] SystemComment on above:Performed By: #### BMP, MG, CBC, PT, PTT #### [facility] [employer] [address] [place] [address] Antique Refinisher: Vincent Sy MDErythrocyte distribution width (RBC) [Ratio]13.2 %Eaztrv37.8-14.4[facility] SystemComment on above:Performed By: #### BMP, MG, CBC, PT, PTT #### [facility] [employer] [address] [place] [address] Antique Refinisher: Vincent Sy MDHematocrit (Bld) [Volume fraction]37.5 %Low 40.7-50.3MParkview Community Hospital Medical CenterComment on above:Performed By: #### BMP, MG, CBC, PT, PTT #### [facility] [address] [place] [address] Antique Refinisher: Vincent Sy MDHemoglobin (Bld) [Mass/Vol]12.8 g/dLLow13.0-17.0 [facility] SystemComment on above:Performed By: #### BMP, MG, CBC, PT, PTT #### [facility] [address] [place] [address] Antique Refinisher: Elizabeth Pereyramature granulocytes/100 WBC (Bld)1 %Uyug7VfqawOhio State Health SystemComment on above:Performed By: #### BMP, MG, CBC, PT, PTT #### [facility] [address] [place] [address] Antique Refinisher: Vincent Sy MDLymphocytes (Bld) [#/Vol]4.07 10*3/uLHigh 1.10-3.70[facility] SystemComment on above:Performed By: #### BMP, MG, CBC, PT, PTT #### [facility] [employer] [address] [place] [address] Antique Refinisher: Linda Pereyramphocytes/100 WBC (Bld)47 %Mdwz88-51MyyraOhio State Health SystemComment on above:Performed By: #### BMP, MG, CBC, PT, PTT #### [facility] [employer] [address] [place] [address] Antique Refinisher: JODEE PereyraCH (RBC) [Entitic mass]29.6 gaZtcsiw83.2-33.5 [facility] SystemComment on above:Performed By: #### BMP, MG, CBC, PT, PTT #### [facility] [employer] [address] [place] [address] Antique Refinisher: JENS PereyraC (RBC) [Mass/Vol]34.1 g/dWNghkbe97.4-34.8 [facility] SystemComment on above:Performed By: #### BMP, MG, CBC, PT, PTT #### [facility] [employer] [address] [place] [address] Antique Refinisher: JODEE PereyraCV (RBC) [Entitic vol]86.8 dYFggxxc78.6-102.9 [facility] SystemComment on above:Performed By: #### BMP, MG, CBC, PT, PTT #### [address] [address] Antique Refinisher: JODEE Pereyraonocytes (Bld) [#/Vol]0.62 10*3/uLNormal 0.10-1.20[facility] SystemComment on above:Performed By: #### BMP, MG, CBC, PT, PTT #### [place] [address] Antique Refinisher: JODEE Pereyraonocytes/100 WBC (Bld)7 %Normal3-12[facility] SystemComment on above:Performed By: #### BMP, MG, CBC, PT, PTT #### [place] [address] Antique Refinisher: Kali Pereyrautrophil (Seg)42 %Zkoytu81-67PhponOhio State Health SystemComment on above:Performed By: #### BMP, MG, CBC, PT, PTT #### [address] [address] Antique Refinisher: Vincent Sy MDNRBC Automated0.0 per 100 WBCNormal0.0[facility] Health SystemComment on above:Performed By: #### BMP, MG, CBC, PT, PTT #### [address] [address] Antique Refinisher: DOLLY Pereyralatelet mean volume (Bld) [Entitic vol]11.1 fL Normal8.1-13.5[facility] SystemComment on above:Performed By: #### BMP, MG, CBC, PT, PTT #### [facility] [employer] [address] [place] [address] Antique Refinisher: Sol Pereyratenew [facility] ([facility]) [#/Vol]189 10*3/hNMdmzpr055-091 [facility] SystemComment on above:Performed By: #### BMP, MG, CBC, PT, PTT #### [facility] [address] [place] [address] Antique Refinisher: MARSHA PereyraBC ([facility]) [#/Vol]4.32 10*6/uLNormal4.21-5.77 [facility] SystemComment on above:Performed By: #### BMP, MG, CBC, PT, PTT #### [facility] [address] [place] [address] Antique Refinisher: DE Pereyra ([facility]) [#/Vol]8.6 10*3/uLNormal3.5-11.3MParkview Community Hospital Medical CenterComment on above:Performed By: #### BMP, MG, CBC, PT, PTT #### [facility] [address] [place] [address] Antique Refinisher: SACHIN Pereyra Complete 2D W Doppler W ColorOrdered By: Jared Nation on 79-41-9822Vmsx ventricular Ejection lgwcclle34CHRCARILION TAZEWELL COMMUNITY HOSPITALPopdust Work Phone: LVEF MODALITYECHOBON UKIA[facility]LEY MEDICAL CENTERPopdust Work Phone: [facility] [employer] Work Phone: [place] Complete 2D W Doppler W Coloron 84-71-7900BO LVEF [facility] [employer] Work Phone: poc Glucose Fingerstickon 30-56-4342Zwulghk [Mass/Vol] 324 mg/gNIshp72 - 110 mg/dLBON [facility] MEDICAL CENTERPopdustInterpretation and review of laboratory resultsAbnormalCARILION TAZEWELL COMMUNITY HOSPITALAvaamo [facility]OS[facility]ITALPopdust Glucose [Mass/Vol]328 mg/fDGyfr89 - 110 mg/dLBON [facility] CENTERREG[facility] Interpretation and review of laboratory resultsAbnormCentra Southside Community HospitalGlucose [Mass/Vol]266 mg/wTXwgz93 - 110 mg/dLBON [facility] HOSPITALInterpretation and review of laboratory resultsAbnormCarilion Stonewall Jackson HospitalGlucose [Mass/Vol]253 mg/hWBmlh92 - 110 mg/dLBON [facility] HOSPITALInterpretation and review of laboratory results AbnormalAugusta Health 46-79-8476uDIM Coag (Bld) [Time]53.5 sHigh20.5-30.5[facility] Health SystemComment on above:Result Comment: IV Heparin Therapy Range: 48.6-77.8Performed By: #### PT, GLYHGB, CDP #### [facility] [employer] [address] [place], [place] [phone] Antique Refinisher: Courtney Pereyra Coag (Bld) [Time]53.5 sHigON [facility] HOSPITALInterpretation and review of laboratory resultsAbnormNorton Community HospitalT Coag (Bld) [Time]57.9 sHigh20.5-30.5 [facility] SystemComment on above:Result Comment: IV Heparin Therapy Range: 48.6-77.8Performed By: #### BMP, MG, CBC, PT, PTT #### [facility] [employer] [address] [place], [place] [phone] Antique Refinisher: Vincent Sy MDaPTT Coag (Bld) [Time]40.4 sHigh20.5-30.5[facility] SystemComment on above:Result Comment: IV Heparin Therapy Range: 48.6-77.8Performed By: #### PT, GLYHGB, CDP #### [facility] [employer] [address] [place] [address] Antique Refinisher: Tim Pereyra Metab w/rfx MGon 46-82-7965Fcxik gap [Moles/Vol]11 mmol/LNormal9-17[facility] Medical CenterComment on above: Performed By: #### BMP, MG, CBC, PT, PTT #### [facility] [address] [place] [address] Antique Refinisher: MELLY Pereyraalcium [Mass/Vol]10.0 mg/dLNormal8.6-10.4[facility] SystemComment on above:Performed By: #### BMP, MG, CBC, PT, PTT #### [facility] [address] [place] [address] Antique Refinisher: MELLY Pereyrahloride [Moles/Vol]99 mmol/DIaxruk46-311UwqpmOhio State Health SystemComment on above:Performed By: #### BMP, MG, CBC, PT, PTT #### [employer] [address] [place] [address] Antique Refinisher: Vincent Sy MDCO2 [Moles/Vol]22 mmol/CLxrqhr91-26MoorwOhio State Health SystemComment on above:Performed By: #### BMP, MG, CBC, PT, PTT #### [employer] [address] [place] [address] Antique Refinisher: MELLY Pereyrareatinine [Mass/Vol]2.04 mg/dLHigh0.70-1.20 [facility] SystemComment on above:Performed By: #### BMP, MG, CBC, PT, PTT #### [facility] [address] [place] [address] Antique Refinisher: Vincent Sy MDGFR/1.73 sq M.predicted among non-blacks MDRD (S/P/Bld) [Vol rate/Area]42 mL/min/{1.73_m2}Low>60MerMarian Regional Medical CenterComment on above:Result Comment: These results are not intended for [...] or following therapy that affects renal tubular secretion.Performed By: #### BMP, MG, CBC, PT, PTT #### [facility] [employer] [address] [place] [address] Antique Refinisher: Vincent Sy MDGlucose [Mass/Vol]391 mg/yFSkwi13-65PuxwdParkview Community Hospital Medical CenterComment on above:Performed By: #### BMP, MG, CBC, PT, PTT #### [place] [address] Antique Refinisher: DOLLY Pereyraotassium [Moles/Vol]4.1 mmol/LNormal3.7-5.3 [facility] SystemComment on above:Performed By: #### BMP, MG, CBC, PT, PTT #### [facility] [employer] [address] [place] [address] Antique Refinisher: LISA Pereyraodium [Moles/Vol]132 mmol/NHzp222-284GenuhOhio State Health SystemComment on above:Performed By: #### BMP, MG, CBC, PT, PTT #### [facility] [employer] [address] [place] [address] Antique Refinisher: Vincent Sy MDUrea nitrogen [Mass/Vol]31 mg/dLHigh6-20[facility] SystemComment on above:Performed By: #### BMP, MG, CBC, PT, PTT #### [facility] HospitalV[facility] [address] [place] [address] Antique Refinisher: Vincent Sy MDBeta Hydroxybutyrateon 87-87-2316Brao Hydroxybutyrate0.21 mmol/LNormal0.02-0.27[facility] SystemComment on above:Performed By: #### BMP, MG, CBC, PT, PTT #### [facility] [address] [place] [address] Antique Refinisher: Vincent Sy MDBeta-Hydroxybutyrateon 05-24-2022 Beta-Hydroxybutyrate0.21 mmol/L0.02 - 0.27 mmol/LBON SECSUMMA HEALTH BARBERTON CAMPUSCBC with Auto Differentialon 90-58-5763Vbppmozf Eos #0.11BON [facility] Absolute Immature Granulocyte0.00BON SECSUMMA [facility] BARBERTON CAMPUSAbsolute Lymph #4.92 HighBON SECSUMMA HEALTH BARBERTON CAMPUSAbsolute Winston #0.64BON SECSUMMA HEALTH BARBERTON CAMPUSBasophils (Bld) [#/Vol]0.00 10*3/uLBON SECSUMMA HEALTH BARBERTON CAMPUSBasophils/100 WBC (Bld)0 %0 - 2 %BON [facility] HOS[facility]ITALEosinophils/100 WBC (Bld)1 %1 - 4 %BON [facility] HOSPITALHematocrit (Bld) [Volume fraction]39.0 %Low40.7 - 50.3 %BON [facility] HOSPITALHemoglobin (Bld) [Mass/Vol]13.4 g/dL13.0 - 17.0 g/dLBON [facility]ITALImmature granulocytes/100 WBC (Bld)0 %0BON [facility] Interpretation and review of laboratory resultsAbnormalBON [facility] Lymphocytes/100 WBC (Bld)46 %High24 - 44 %BON [facility] HEALTHH (RBC) [Entitic mass]29.8 pg25.2 - 33.5 pgBON SUMMA HEALTHHC (RBC) [Mass/Vol] 34.4 g/dL28.4 - 34.8 g/dLBON SECCLEVELAND CLINIC HILLCREST HOSPITALV (RBC) [Entitic vol]86.7 fL 82.6 - 102.9 fLBON [facility] HOSPITALMonocytes/100 WBC (Bld)6 %1 - 7 %BON SECSUMMA HEALTH BARBERTON CAMPUSMorphology Aryan (Bld) [Interp]NormalBON [facility] NRBC Automated0.00.0 per 100 WBCBON [facility]BA[facility] HOSPITALPlatelet distribution width (Bld) [Ratio]13.1 %11.8 - 14.4 %BON [facility] HEALTHPlatelet mean volume (Bld) [Entitic vol]11.1 fL8.1 - 13.5 fLLEWISGALE HOSPITAL ALLEGHANY HEALTHPlatelets (Bld) [#/Vol]198 10*3/uLBON [facility] HEALTHRBC (Bld) [#/Vol]4.50 10*6/uL 4.21 - 5.77 m/uLRESTON HOSPITAL CENTERSeg Kjgzxngfhls99 %36 - 66 %BON [facility] HOSPITALSegs Absolute5.03BON [facility] HOSPITALWBC (Bld) [#/Vol]10.7 10*3/uLBON [facility]AMPUSOURS BARNESVILLE HOSPITALBON [facility] HOSPITALCBC with Diffon 79-03-7142Bal. Basophil0.00 k/uLNormal0.0-0.2MParkview Community Hospital Medical Center Comment on above:Performed By: #### PTT #### [facility] [employer] [address] [place] [address] Antique Refinisher: Frankie Pereyra.Imm.Granulocyte0.00 k/uLNormal0.00-0.30[facility] SystemComment on above:Performed By: #### PTT #### [facility] [employer] [address] [place] [address] Antique Refinisher: Frankie Pereyra.Neutrophil (Seg)5.03 k/uLNormal1.8-7.7[facility] SystemComment on above:Performed By: #### PTT #### [place] [address] Antique Refinisher: Vincent Sy MDBasophils/100 WBC (Bld)0 %Normal0-2MParkview Community Hospital Medical CenterComment on above:Performed By: #### PTT #### [facility] [employer] [address] [place] [address] Antique Refinisher: Vincent Sy MDEosinophils (Bld) [#/Vol]0.11 10*3/uLNormal 0.0-0.4[facility] SystemComment on above:Performed By: #### PTT #### [address] [address] Antique Refinisher: Vincent Sy MDEosinophils/100 WBC (Bld)1 %Normal1-4[facility] Medical CenterComment on above:Performed By: #### PTT #### [address] [address] Antique Refinisher: Vincent Sy MDImmature granulocytes/100 WBC (Bld)0 %Normal0 [facility] SystemComment on above:Performed By: #### PTT #### [address] [address] Antique Refinisher: Vincent Sy MDLymphocytes (Bld) [#/Vol]4.92 10*3/uLHigh1.0-4.8 [facility] SystemComment on above:Performed By: #### PTT #### [address] [address] Antique Refinisher: Linda Pereyramphocytes/100 WBC (Bld)46 %Tvex20-75Akpfl [facility]var[facility] Hospital Medical CenterComment on above:Performed By: #### PTT #### [address] [address] Antique Refinisher: JODEE Pereyraonocytes (Bld) [#/Vol]0.64 10*3/uLNormal0.1-0.8 [facility] SystemComment on above:Performed By: #### PTT #### [address] [address] Antique Refinisher: JODEE Pereyraonocytes/100 WBC (Bld)6 %Normal1-7[facility] Medical CenterComment on above:Performed By: #### PTT #### [address] [address] Antique Refinisher: JODEE Pereyraorphology Aryan (Bld) [Interp]NormalNormalOhio State Health SystemComment on above:Performed By: #### PTT #### [address] [address] Antique Refinisher: Vincent Sy MDNeutrophil (Seg)47 %Ykfisz45-74PmhcjOhio State Health SystemComment on above:Performed By: #### PTT #### [address] [address] Antique Refinisher: Vincent Sy MDErythrocyte distribution width (RBC) [Ratio]13.1 %Dsfhge92.8-14.4[facility] SystemComment on above:Performed By: #### PTT #### [address] [address] Antique Refinisher: Vincent Sy MDHematocrit (Bld) [Volume fraction]39.0 %Low 40.7-50.3[facility] Medical CenterComment on above:Performed By: #### PTT #### [address] [address] Antique Refinisher: Vincent Sy MDHemoglobin (Bld) [Mass/Vol]13.4 g/dLNormal 13.0-17.0[facility] SystemComment on above:Performed By: #### PTT #### [address] [address] Antique Refinisher: JODEE PereyraCH (RBC) [Entitic mass]29.8 msAsjuqj52.2-33.5 [facility] SystemComment on above:Performed By: #### PTT #### [address] [address] Antique Refinisher: JODEE PereyraCHC (RBC) [Mass/Vol]34.4 g/oHVrgovc92.4-34.8 [facility] SystemComment on above:Performed By: #### PTT #### [address] [address] Antique Refinisher: JODEE PereyraCV (RBC) [Entitic vol]86.7 vSMvihfv19.6-102.9 [facility] SystemComment on above:Performed By: #### PTT #### [place] [address] Antique Refinisher: BRAYDON Pereyra Automated0.0 per 100 WBCNormal0.0[facility] SystemComment on above:Performed By: #### PTT #### [address] [address] Antique Refinisher: Sol Pereyratecarlton mean volume (Bld) [Entitic vol]11.1 fL Normal8.1-13.5[facility] SystemComment on above:Performed By: #### PTT #### [address] [address] Antique Refinisher: DOLLY Pereyralatelets (Bld) [#/Vol]198 10*3/sRAvhnrx317-618 [facility] SystemComment on above:Performed By: #### PTT #### [address] [address] Antique Refinisher: MARSHA PereyraBC (Bld) [#/Vol]4.50 10*6/uLNormal4.21-5.77 [facility] SystemComment on above:Performed By: #### PTT #### [address] [address] Antique Refinisher: RADHA PereyraBC (Bld) [#/Vol]10.7 10*3/uLNormal3.5-11.3MParkview Community Hospital Medical CenterComment on above:Performed By: #### PTT #### [facility] [address] [place] [address] Antique Refinisher: PETE Pereyra 12 LeadOrdered By: Bc Wilks on 05-24-2022 Atrial Dfyd03UOIALF [facility] Work Phone: [phone] Zweg53igkykceOIO [facility] Work Phone: [phone]-R Uwbeklns433 msBON [facility] Work Phone: [phone]-T Jzepxtxg151 msBON [facility] Work Phone: [phone] Vwwxwiva09 msBON [facility] Work Phone: [phone] Calculation (Bazett)429 msBON [facility] Work Phone: [phone] Jgdd95motxzjtAVG [facility] Work Phone: [phone] Ljaq49jaejxqvPHW [facility] Work Phone: [phone] Noeh64IJQPCU [facility] Work Phone: [phone] Work Phone: EKG 12 Leadon 09-60-5834AKYM STV MUSEBON [facility] Work Phone: eKG 12 leadon 00-97-6395Rodqfj Rsom94DBUPML [facility] Work Phone: P Tmfx89dzrfcljDPG [facility] Work Phone: P-R Dwmlexfg394 msBON [facility] Work Phone: Q-T Cgxqddnr990 msBON [facility] Work Phone: QRS Piidkzyn05 msBON [facility] Work Phone: QTc Calculation (Bazett)427 msBON [facility] Work Phone: r [id number] [facility] Work Phone: T Xnhj91inkotblJTSCJW Medical Center Work Phone: Ventricular Qtit09QSWCJC [facility] Work Phone: MHPN [facility] Work Phone: bON [facility] Work Phone: lDL Chol, Directon 62-08-7691ZYZ Chol, Syipok519 mg/dL High<100[facility] Medical CenterComment on above:Performed By: #### PTT #### [employer] [address] [place] [phone] Antique Refinisher: BERNICE Pereyra Cholesterol, Directon 58-10-3605Bpqjgjsvrnp in LDL [Mass/Vol]230 mg/dLHighNINF - 100 mg/dLBON [facility] Interpretation and review of laboratory resultsAbnoAugusta Health Lipid Profileon 01-10-5202Dcfqrfdulkx,LDLNormal0-130MerMarian Regional Medical CenterComment on above:Result Comment: Calculation not valid for Triglyceride value greater than 400 mg/dL. Direct LDL reflexed LDL Guidelines: <100 Desirable 100-129 Near to/above Desirable 130-159 Borderline >159 Undesirable Direct (measured) LDL and calculated LDL are not interchangeable tests.Performed By: #### BMP, MG, CBC, PT, PTT #### [employer] [address] [place] [phone] Antique Refinisher: MELLY Pereyraholesterol [Mass/Vol]330 mg/dLHigh<200MerMarian Regional Medical CenterComment on above:Result Comment: Cholesterol Guidelines: <200 Desirable 200-240 Borderline >240 UndesirablePerformed By: #### BMP, MG, CBC, PT, PTT #### [employer] [address] [place], [place] [phone] Antique Refinisher: MELLY Pereyraholesterol in HDL [Mass/Vol]40 mg/dLLow>40MerMarian Regional Medical CenterComment on above:Result Comment: HDL Guidelines: <40 Undesirable 40-59 Borderline >59 DesirablePerformed By: #### BMP, MG, CBC, PT, PTT #### [facility] [employer] [address] [place] [address] Antique Refinisher: MELLY Pereyraholesterol.total/Cholesterol in HDL [Mass ratio]8.3 {ratio}High<5[facility] Medical CenterComment on above: Performed By: #### BMP, MG, CBC, PT, PTT #### [facility] [employer] [address] [place] [phone] Antique Refinisher: Vincent Sy MDTriglyceride [Mass/Vol]577 mg/dLHigh<150MerMarian Regional Medical CenterComment on above:Result Comment: Triglyceride Guidelines: <150 Desirable 150-199 Borderline 200-499 High >499 Very high Based on AHA Guidelines for fasting triglyceride, December 2011.Performed By: #### BMP, MG, CBC, PT, PTT #### [employer] [address] [place] [phone] Antique Refinisher: Greg Pereyragnesiumon 10-83-1216Oynlcmmdq [Mass/Vol]1.8 mg/dLNormal1.6-2.6[facility] Medical CenterComment on above:Performed By: #### BMP, MG, CBC, PT, PTT #### [employer] [address] [place] [phone] Antique Refinisher: Vincent Sy MDNo Panel Informationon 51-08-0435[facility] Glucose Fingerstickon 45-98-9784Zftkbsm [Mass/Vol]293 mg/dLHigh 75 - 110 mg/dLBON [facility] HOSPITALInterpretation and review of laboratory resultsAbnormalCJW MEDICAL CENTERGlucose [Mass/Vol]364 mg/kYSern06 - 110 mg/dLBON [facility] HOSPITALInterpretation and review of laboratory resultsAbnormalCJW MEDICAL CENTERGlucose [Mass/Vol]417 mg/dLCritically high75 - 110 mg/dLBON [facility] HOSPITALInterpretation and review of laboratory resultsAbnormalCJW MEDICAL CENTERProtein,Tot,[place] Uron 25-41-6627Menrljtrwj [Mass/Vol]123.3 mg/iEIueoki62.0-259.0[facility] SystemComment on above:Performed By: #### PT, GLYHGB, CDP #### [employer] [address] [place] [address] Antique Refinisher: Morgan Pereyra Prot. Conc.76 mg/dLNoCleveland Clinic Children's Hospital for RehabilitationComment on above:Result Comment: No normal range established. Performed By: #### PT, GLYHGB, CDP #### [employer] [address] [place] [address] Antique Refinisher: Vincent Sy MDTP/Cre Ratio0.82Rrtc6.00-0.20[facility] SystemComment on above:Performed By: #### PT, GLYHGB, CDP #### [employer] [address] [place] [address] Antique Refinisher: ISIDORO Pereyra w/Reflex Cultureon 98-47-0199Cmglopseb, SemiQt,UrNegativeNormalNEGOhio State Health SystemComment on above: Performed By: #### BMP, MG, CBC, PT, PTT #### [employer] [address] [place] [address] Antique Refinisher: Claudio Pereyra, UrineNegativeNormalNEGOhio State Health SystemComment on above:Performed By: #### BMP, MG, CBC, PT, PTT #### [employer] [address] [place] [address] Antique Refinisher: Eris Pereyra (U)ClearNormalCLEAROhio State Health SystemComment on above:Performed By: #### BMP, MG, CBC, PT, PTT #### [facility] [address] [place] [address] Antique Refinisher: MELLY Pereyraolor (U)YellowNormalYELMerMarian Regional Medical CenterComment on above:Performed By: #### BMP, MG, CBC, PT, PTT #### [facility] [address] [place] [address] Antique Refinisher: Vincent Sy MDGlucose Ql (U)3+AbnormalNEGOhio State Health SystemComment on above:Performed By: #### BMP, MG, CBC, PT, PTT #### [facility] [address] [place] [address] Antique Refinisher: Vincent Sy MDKetones Ql (U)NegativeNormalNEGOhio State Health SystemComment on above:Performed By: #### BMP, MG, CBC, PT, PTT #### [facility] [address] [place] [address] Antique Refinisher: Vincent Sy MDLeukocyte esterase Test strip Ql (U)Negative NormalNEGOhio State Health SystemComment on above:Performed By: #### BMP, MG, CBC, PT, PTT #### [facility] [address] [place] [address] Antique Refinisher: Brandy Pereyratrite,UrNegativeNormalNEGOhio State Health SystemComment on above:Performed By: #### BMP, MG, CBC, PT, PTT #### [facility] [address] [place] [address] Antique Refinisher: Vincent Sy [facility],Ur5.3Pyjrel8.0-8.0MerMarian Regional Medical CenterComment on above:Performed By: #### BMP, MG, CBC, PT, PTT #### [facility] [address] [place] [address] [phone] Antique Refinisher: DOLLY Pereyrarotein Ql (U)2+AbnormalNEGOhio State Health SystemComment on above:Performed By: #### BMP, MG, CBC, PT, PTT #### [facility] [address] [place] [address] Antique Refinisher: LISA Pereyrapec. [place],Ur1.773Swtsah2.005-1.030[place] State Health SystemComment on above:Performed By: #### BMP, MG, CBC, PT, PTT #### [facility] [address] [place] [address] Antique Refinisher: Vincent Sy MDUrobilinogen,UrNormalNormalNORMOhio State Health SystemComment on above:Performed By: #### BMP, MG, CBC, PT, PTT #### [facility] [address] [place] [address] Antique Refinisher: Vincent Sy MDUS RETROPERITONEAL COMPLETEon [id number] RETROPERITONEAL COMPLETEEXAMINATION: RETROPERITONEAL ULTRASOUND OF THE KIDNEYS AND URINARY [...] Signed by: Sony Whitt MD 05/24/22 Final resultNormalOhio State Health SystemUrinalysis,Microon 05-24-2022 Casts2 TO 5 HYALINENormal0-8[place] State Health SystemComment on above: Result Comment: Reference range defined for non-centrifuged specimen.Performed By: #### BMP, MG, CBC, PT, PTT #### [facility] [address] [place] [address] Antique Refinisher: Vincent Sy MDEpithelial cells LM Ql (Urine sed)0 TO 2Normal 0-5[place] [facility] Health SystemComment on above:Performed By: #### BMP, MG, CBC, PT, PTT #### [facility] [address] [place] [address] Antique Refinisher: Vincent Sy MDUrine RBC's0 TO 7Ngqpoy2-5QfqruOhio State Health SystemComment on above:Result Comment: Reference range defined for non- centrifuged specimen.Performed By: #### BMP, MG, CBC, PT, PTT #### [facility] [address] [place] [address] Antique Refinisher: Carlos Enrique Pereyra WBC's2 TO 6Borkyc7-7PmbrvOhio State Health SystemComment on above:Performed By: #### BMP, MG, CBC, PT, PTT #### [facility] [address] [place] [address] Antique Refinisher: Tali Pereyra 30-54-7751fPEZ Coag (Bld) [Time]40.9 s High20.5-30.5[place] State Health SystemComment on above:Result Comment: IV Heparin Therapy Range: 48.6-77.8Performed By: #### BMP, MG, CBC, PT, PTT #### [facility] [address] [place] [address] Antique Refinisher: Vincent Sy MDBasic Metab w/rfx MGon 50-80-2668Fzuleqs [Mass/Vol]416 mg/dLCritically gwoi36-98FtvpaOroville HospitalComment on above:Performed By: #### BMP, MG, CBC, PT, PTT #### [facility] [address] [place] [address] Antique Refinisher: Katelin Pereyra gap [Moles/Vol]12 mmol/LNormal9-17[place] [facility] Health SystemComment on above:Performed By: #### BMP, MG, CBC, PT, PTT #### [facility] [address] [place] [address] Antique Refinisher: MELLY Pereyraalcium [Mass/Vol]10.6 mg/dLHigh8.6-10.4[place] [facility] Health SystemComment on above:Performed By: #### BMP, MG, CBC, PT, PTT #### [facility] [address] [place] [address] Antique Refinisher: MELLY Pereyrahloride [Moles/Vol]97 mmol/JLyg39-744DzujfOhio State Health SystemComment on above:Performed By: #### BMP, MG, CBC, PT, PTT #### [facility] [address] [place] [address] Antique Refinisher: Vincent Sy MDCO2 [Moles/Vol]23 mmol/UXaghlr76-49CvusaOhio State Health SystemComment on above:Performed By: #### BMP, MG, CBC, PT, PTT #### [facility] [address] [place] [address] Antique Refinisher: MELLY Pereyrareatinine [Mass/Vol]2.08 mg/dLHigh0.70-1.20 [place] [facility] SystemComment on above:Performed By: #### BMP, MG, CBC, PT, PTT #### [facility] [address] [place] [address] Antique Refinisher: Vincent Sy MDGFR/1.73 sq M.predicted among non-blacks MDRD (S/P/Bld) [Vol rate/Area]41 mL/min/{1.73_m2}Low>60[place] [facility] Health SystemComment on above:Result Comment: These results are not intended for [...] or following therapy that affects renal tubular secretion.Performed By: #### BMP, MG, CBC, PT, PTT #### [facility] [address] [place] [address] Antique Refinisher: DOLLY Pereyraotassium [Moles/Vol]4.3 mmol/LNormal3.7-5.3 [place] [facility] SystemComment on above:Performed By: #### BMP, MG, CBC, PT, PTT #### [facility] [address] [place] [address] Antique Refinisher: LISA Pereyraodium [Moles/Vol]132 mmol/RNfp822-131ZtupvOhio State Health SystemComment on above:Performed By: #### BMP, MG, CBC, PT, PTT #### [facility] [address] [place] [address] Antique Refinisher: Vincent Sy MDUrea nitrogen [Mass/Vol]34 mg/dLHigh6-20[place] [facility] Health SystemComment on above:Performed By: #### BMP, MG, CBC, PT, PTT #### [facility] [address] [place] [address] Antique Refinisher: MELLY PereyraARDIAC ALECIA 3-6on 91-23-6892SN [Catalytic activity/Vol]155 U/JNtsyrn58-303Rxj CentervilleComment on above:Performed By: #### DDIM #### [facility] [address] [address] [address] Sushila Castellon.MB [Mass/Vol]2.94 ng/mLNormal<=3.60The [place] Comment on above:Performed By: #### DDIM #### [facility] [address] [place], [place] [address] Dr. Sushila DongHSTROP718.1 pg/mLCritically high4.0-76.1[facility] Comment on above:Result Comment: CUT-OFF POINTS HAVE BEEN ESTABLISHED BASED ON THE FOURTH UNIVERSAL DEFINITIONS OF MYOCARDIAL INFARCTION. THE UPPER REFERENCE LIMIT (URL) OF TROPONIN, DEFINED THE 99TH PERCENTILE OF cTnI DISTRIBUTION IN A REFERENCE POPULATION, HAS BEEN CONFIRMED THE DECISION THRESHOLD FOR NE DIAGNOSIS.Performed By: #### DDIM #### [facility] [address] [address] [address] Sushila Castellon [Catalytic activity/Vol]154 U/LXhhdum61-509VnrUniversity Hospitals Cleveland Medical CenterComment on above:Performed By: #### CMREP #### [facility] [address] [address] [address] Sushila Castellon.MB [Mass/Vol]2.46 ng/mLNormal<=3.60[facility] Comment on above:Performed By: #### CMREP #### [facility] [address] [place] [address] Dr. Sushila Titus445.9 pg/mLCritically high4.0-76.1[facility] Comment on above:Result Comment: CUT-OFF POINTS HAVE BEEN ESTABLISHED BASED ON THE FOURTH UNIVERSAL DEFINITIONS OF MYOCARDIAL INFARCTION. THE UPPER REFERENCE LIMIT (URL) OF TROPONIN, DEFINED THE 99TH PERCENTILE OF cTnI DISTRIBUTION IN A REFERENCE POPULATION, HAS BEEN CONFIRMED THE DECISION THRESHOLD FOR NE DIAGNOSIS.Performed By: #### CMREP #### [facility] [address] [place] [address] Dr. Sushila ALSTON ADMITon 02-37-8243HQ [Catalytic activity/Vol]145 U/L Ulgyng48-458CskUniversity Hospitals Cleveland Medical CenterComment on above:Performed By: #### BMP CMADM #### [facility] [address] [address] [address] Sushila Castellon.MB [Mass/Vol]2.14 ng/mLNormal<=3.60[facility] Comment on above:Performed By: #### BMP, CMADM #### [facility] [address] [address] [address] Sushila Titus84.8 pg/mLCritically high4.0-76.1[facility] Comment on above:Result Comment: CUT-OFF POINTS HAVE BEEN ESTABLISHED BASED ON THE FOURTH UNIVERSAL DEFINITIONS OF MYOCARDIAL INFARCTION. THE UPPER REFERENCE LIMIT (URL) OF TROPONIN, DEFINED THE 99TH PERCENTILE OF cTnI DISTRIBUTION IN A REFERENCE POPULATION, HAS BEEN CONFIRMED THE DECISION THRESHOLD FOR NE DIAGNOSIS.Performed By: #### BMP, CMADM #### [facility] [address] [place] [address] Dr. Sushila EmmanuelO214 ng/mLCritically dpol83-22Mng CentervilleComment on above:Performed By: #### BMP, CMADM #### [facility] [address] [place] [address] Dr. Sushila Costello AUTO DIFFon 84-32-3099YSPC #0.0 103/ulNormal0.0-0.1[facility] Medical CenterComment on above:Performed By: #### CBC #### [facility] [address] [place] [address] Dr. Sushila DongBasophils/100 WBC (Bld)0.4 %Normal0.2-2.0[facility] Comment on above:Performed By: #### CBC #### [facility] [address] [place] [address] Dr. Sushila Mays #0.1 103/ulNormal0.0-0.7The CentervilleComment on above: Performed By: #### CBC #### [facility] [address] [place] [address] Dr. Sushila Rileyosinophils/100 WBC (Bld)1.6 %Normal0.9-7.0[facility] Comment on above:Performed By: #### CBC #### [facility] [address] [place] [address] Dr. Sushila Rileyrythrocyte distribution width (RBC) [Ratio]12.7 %Htedhm22.0-15.0 [facility] CenterComment on above:Performed By: #### CBC #### [facility] [address] [place] [address] Dr. Sushila DongHematocrit (Bld) [Volume fraction]43.8 %Nsdtbh79.0-54.0The [facility]ervilleComment on above:Performed By: #### CBC #### [facility] [address] [place] [address] Dr. Sushila DongHemoglobin (Bld) [Mass/Vol]15.0 g/zUDqicpd68.0-18.0The CentervilleComment on above:Performed By: #### CBC #### [facility] [address] [place] [address] Dr. Sushila Munroe #0.04 10e3/ulCritically high0.00-0.03The [place] Comment on above:Performed By: #### CBC #### [facility] [address] [place] [address] Dr. Sushila Munroe %0.4 %Normal0.0-0.5The CentervilleComment on above: Performed By: #### CBC #### [facility] [address] [place] [address] Dr. Sushila Martinez #2.4 103/ulNormal1.2-3.8The CentervilleComment on above:Performed By: #### CBC #### [facility] [address] [place] [address] Dr. Sushila Virkhocytes/100 WBC (Bld)26.5 %Cnbwus11.5-60.0The [facility]ervilleComment on above:Performed By: #### CBC #### [facility] [address] [place] [address] Dr. Sushila PorterUAL DIFF REQNONormalThe CentervilleComment on above: Performed By: #### CBC #### [facility] [address] [place] [address] Dr. Sushila Farias (RBC) [Entitic mass]29.6 ueUujmcu08.9-34.0The CentervilleComment on above:Performed By: #### CBC #### [facility] [address] [place] [address] Dr. Sushila Campos (RBC) [Mass/Vol]34.2 g/hTXiffot39.9-35.2The [facility]ervilleComment on above:Performed By: #### CBC #### [facility] [address] [place] [address] Dr. Sushila CamposV (RBC) [Entitic vol]86.6 kUFexkcb18.0-94.0The [facility]ervilleComment on above:Performed By: #### CBC #### [facility] [address] [place] [address] Dr. Sushila Gonzalez #0.8 103/ulNormal0.3-0.8The CentervilleComment on above:Performed By: #### CBC #### [facility] [address] [place] [address] Dr. Sushila Ramiresocytes/100 WBC (Bld)9.4 %Normal1.7-12.0The [place] Comment on above:Performed By: #### CBC #### [facility] [address] [place] [address] Dr. Sushila Smiley #5.5 103/ulNormal1.4-6.5The CentervilleComment on above:Performed By: #### CBC #### [facility] [address] [place] [address] Dr. Sushila Shipleyutrophils/100 WBC (Bld)61.7 %Pwahfl49.0-75.0The CentervilleComment on above:Performed By: #### CBC #### [facility] [address] [place] [address] Dr. Sushila Warnerlet mean volume (Bld) [Entitic vol]11.0 fLNormal9.5-13.5The CentervilleComment on above:Performed By: #### CBC #### [facility] [address] [place] [address] Dr. Sushila RaviT236 103/jvJthcbo878-465Ipk CentervilleComment on above: Performed By: #### CBC #### [facility] [address] [place] [address] Dr. Sushila BlasC5.06 106/ulNormal4.70-6.10The CentervilleComment on above:Performed By: #### CBC #### [facility] [id number] Sushila DongWBC8.9 103/ulNormal4.0-11.0[facility] CenterComment on above: Performed By: #### CBC #### [facility] [address] [address] [address] [facility]TA[facility] with Diffon 35-80-0928Shk. Basophil0.06 k/uLNormal0.00-0.20 [place] [facility] SystemComment on above:Performed By: #### BMP, MG, CBC, PT, PTT #### [place] [address] Antique Refinisher: Frankie Pereyra.Imm.Granulocyte0.04 k/uLNormal0.00-0.30[place] [facility] SystemComment on above:Performed By: #### BMP, MG, CBC, PT, PTT #### [place] [address] Antique Refinisher: Frankie Pereyra.Neutrophil (Seg)5.16 k/uLNormal1.50-8.10 [place] [facility] SystemComment on above:Performed By: #### BMP, MG, CBC, PT, PTT #### [facility] [employer] [address] [place] [address] Antique Refinisher: Vincent Sy MDBasophils/100 WBC (Bld)1 %Normal0-2MercOroville HospitalComment on above:Performed By: #### BMP, MG, CBC, PT, PTT #### [facility] [employer] [address] [place] [address] Antique Refinisher: Vincent Sy MDEosinophils (Bld) [#/Vol]0.21 10*3/uLNormal 0.00-0.44[facility] SystemComment on above:Performed By: #### BMP, MG, CBC, PT, PTT #### [facility] [address] [place] [address] Antique Refinisher: Vincent Sy MDEosinophils/100 WBC (Bld)2 %Normal1-4[facility] SystemComment on above:Performed By: #### BMP, MG, CBC, PT, PTT #### [facility] [employer] [address] [place] [address] Antique Refinisher: Vincent Sy MDErythrocyte distribution width (RBC) [Ratio]12.4 %Zifnwg41.8-14.4[place] [facility] SystemComment on above:Performed By: #### BMP, MG, CBC, PT, PTT #### [place] [address] Antique Refinisher: Vincent Sy MDHematocrit (Bld) [Volume fraction]43.4 %Normal 40.7-50.3MParkview Community Hospital Medical CenterComment on above:Performed By: #### BMP, MG, CBC, PT, PTT #### [facility] [employer] [address] [place] [address] Antique Refinisher: Vincent Sy MDHemoglobin (Bld) [Mass/Vol]15.5 g/dLNormal 13.0-17.0[place] [facility] SystemComment on above:Performed By: #### BMP, MG, CBC, PT, PTT #### [facility] [employer] [address] [place] [address] Antique Refinisher: Vincent Sy MDImmature granulocytes/100 WBC (Bld)0 %Normal0 [place] [facility] SystemComment on above:Performed By: #### BMP, MG, CBC, PT, PTT #### [facility] [employer] [address] [place] [address] Antique Refinisher: Vincent Sy MDLymphocytes (Bld) [#/Vol]4.44 10*3/uLHigh 1.10-3.70[facility] SystemComment on above:Performed By: #### BMP, MG, CBC, PT, PTT #### [facility] [employer] [address] [place] [address] Antique Refinisher: Wes Pereyrahocytes/100 WBC (Bld)41 %Zxjiyc08-22AciosOhio State Health SystemComment on above:Performed By: #### BMP, MG, CBC, PT, PTT #### [facility] [address] [place] [address] Antique Refinisher: JODEE PereyraCH (RBC) [Entitic mass]29.8 atNxvhdl33.2-33.5 [place] [facility] SystemComment on above:Performed By: #### BMP, MG, CBC, PT, PTT #### [facility] [address] [place] [address] Antique Refinisher: JODEE PereyraCHC (RBC) [Mass/Vol]35.7 g/hKXwxv42.4-34.8[place] [facility] SystemComment on above:Performed By: #### BMP, MG, CBC, PT, PTT #### [facility] [address] [place] [address] Antique Refinisher: JODEE PereyraCV (RBC) [Entitic vol]83.5 vFDquddc19.6-102.9 [place] [facility] SystemComment on above:Performed By: #### BMP, MG, CBC, PT, PTT #### [facility] [employer] [address] [place] [address] Antique Refinisher: JODEE Pereyraonocytes (Bld) [#/Vol]1.02 10*3/uLNormal 0.10-1.20[facility] SystemComment on above:Performed By: #### BMP, MG, CBC, PT, PTT #### [facility] [address] [place] [address] Antique Refinisher: JODEE Pereyraonocytes/100 WBC (Bld)9 %Normal3-12[facility] SystemComment on above:Performed By: #### BMP, MG, CBC, PT, PTT #### [facility] [employer] [address] [place] [address] Antique Refinisher: Starr Pereyraophil (Seg)47 %Xlkdxo73-62CrpuiOhio State Health SystemComment on above:Performed By: #### BMP, MG, CBC, PT, PTT #### [facility] [employer] [address] [place] [address] Antique Refinisher: Vincent Sy MDNRBC Automated0.0 per 100 WBCNormal0.0[place] [facility] SystemComment on above:Performed By: #### BMP, MG, CBC, PT, PTT #### [facility] [address] [place] [address] Antique Refinisher: Sol Pereyratecarlton mean volume (Bld) [Entitic vol]11.4 fL Normal8.1-13.5[place] [facility] SystemComment on above:Performed By: #### BMP, MG, CBC, PT, PTT #### [facility] [employer] [address] [place] [address] Antique Refinisher: DOLLY Pereyralatelets (Bld) [#/Vol]248 10*3/eNDxoooo624-365 [place] [facility] SystemComment on above:Performed By: #### BMP, MG, CBC, PT, PTT #### [facility] [employer] [address] [place] [address] Antique Refinisher: Vincent Sy MDRBC (Bld) [#/Vol]5.20 10*6/uLNormal4.21-5.77 [place] [facility] SystemComment on above:Performed By: #### BMP, MG, CBC, PT, PTT #### [facility] [address] [place], [place] [id number] Antique Refinisher: DE Pereyra (Bld) [#/Vol]10.9 10*3/uLNormal3.5-11.3[facility] Medical CenterComment on above:Performed By: #### BMP, MG, CBC, PT, PTT #### [facility] [address] [place] [address] Antique Refinisher: MELLY Pereyraovidarby-19 PCR ([facility])on 34-26-7132BYDI-CoV-2 (COVID-19) RNA VIK+probe Ql (Unsp spec)Not detectedNormalNOT DETECTEDThe [place]ervilleComment on above:Result Comment: When diagnostic testing is negative, the [...] for this test is supported by the [place] of Health and Human Service's declaration that circumstances exist to justify the emergency use of in vitro diagnostics for the detection and/or diagnosis of the virus that causes COVID-19. This EUA will remain in effect for the duration of the COVID-19 declaration justifying emergency of IVDs, unless it is terminated or revoked by the FDA (after which the test may no longer be used).Performed By: #### DDIM #### [facility] [address] [place] [address] Dr. Sushila Miner 63-55-1735Y-DIMER0.40 mg/L FEUNormal<=0.59The [place]ervilleComment on above:Performed By: #### DDIM #### [facility] [address] [address] [address] Sushila Conn COMMENTSSEE [facility] on above:Result Comment: Increases in D-Dimer concentration observed with thromboembolic events [...] thrombolytic or anticoagulant therapy, stress, and generalized hospitalization.Performed By: #### DDIM #### [facility] [address] [place] [address] Dr. Sushila Curry URINE PROFILEon 88-13-5671Ivvvvxsln Ql (U)NegativeNormal NEGATIVEUniversity Hospitals Cleveland Medical CenterComment on above:Performed By: #### LAI, ERUR #### [facility] [address] [place] [address] Dr. Sushila DongClarity (U)CLEARNormalCLEARUniversity Hospitals Cleveland Medical CenterComment on above: Performed By: #### LAI, ERUR #### [facility] [address] [place] [address] Dr. Sushila Salmon (U)LT. YELLOWNormalYELLOWUniversity Hospitals Cleveland Medical CenterComment on above:Performed By: #### LAI, ERUR #### [facility] [address] [place] [address] Dr. Sushila GivensROQUE micrscopic examination will be performed if indicated. NormalThe CentervilleComment on above:Performed By: #### UMAKHILRO, ERUR #### [facility] [address] [place] [address] Dr. Sushila DongGlucose Ql (U)>1000AbnormalNEGATIVEUniversity Hospitals Cleveland Medical CenterComment on above:Performed By: #### BLAYNERO, ERUR #### [facility] [address] [place] [address] Dr. Sushila DongHemoglobin Ql (U)TRACE-LYSEDAbnormalNEGATIVEUniversity Hospitals Cleveland Medical Center Comment on above:Performed By: #### UMICRO, ERUR #### [facility] [address] [address] [address] Sushila Clark Ql (U)NegativeNormalNEGATIVEThe CentervilleComment on above:Performed By: #### LAI ERUR #### [facility] [address] [address] [address] Sushila DongLEUKOCYTESNegativeNormalNEGATIVEThe CentervilleComment on above:Performed By: #### LAI ERUR #### [facility] [address] [place] [address] Dr. Sushila Callestrcharlie Ql (U)NegativeNormalNEGATIVEThe CentervilleComment on above:Performed By: #### LAI ERUR #### [facility] [address] [place] [address] Dr. Sushila DongpH (U)6.0 [pH]Normal5-9The [facility]ervilleComment on above: Performed By: #### LAI ERUR #### [facility] [address] [place] [address] Dr. Sushila DongProtein (U) [Mass/Vol]30 mg/dLAbnormalNEGATIVE/ TRACEThe CentervilleComment on above:Performed By: #### LAI ERUR #### [facility] [address] [place] [address] Dr. Sushila DongSPEC GRAVITY<=1.066Rmeocczb4.005-<=1.025The [place] Comment on above:Performed By: #### LAI ERUR #### [facility] [address] [place] [address] Dr. Sushila DongUR MICRO INDINDICATEDNormalThe CentervilleComment on above: Performed By: #### LAI ERUR #### [facility] [address] [place] [address] Dr. Sushila Osbornebilino Qn (U)0.2 {Ellyn'U}/dLNormal0.2 - 1.0The CentervilleComment on above:Performed By: #### LAI, ERUR #### [facility] [address] [place], [place] [address] Dr. Sushila DongGLUCOSE BLOODon 17-71-9737Xlmnogy [Mass/Vol]586 mg/dLCritically huyz29-246VqrUniversity Hospitals Cleveland Medical CenterComment on above:Performed By: #### DDIM #### [facility] [address] [address] [address] Sushila DongGlucose [Mass/Vol]713 mg/dLCritically bxnl13-893IyiUniversity Hospitals Cleveland Medical CenterComment on above:Performed By: #### GLUC #### [facility] [address] [address] [address] Sushila DongHemoglobin A1Con 09-41-9252Gxqrqfc [Mass/Vol]243 mg/dLNormalOhio State Health SystemComment on above:Result Comment: The ADA and AACC recommend providing the estimated average glucose result to permit better patient understanding of their HBA1c result.Performed By: #### BMP, MG, CBC, PT, PTT #### [facility] [address] [place], [place] [phone] Antique Refinisher: Vincent Sy MDHbA1c (Bld) [Mass fraction]10.1 %High4.0-6.0 [place] [facility] SystemComment on above:Performed By: #### BMP, MG, CBC, PT, PTT #### [facility] [address] [place] [address] Antique Refinisher: Vincent Sy MDLipaseon 19-06-5454Wqusvv [Catalytic activity/Vol]59 U/LBhmajl96-78UtoduOhio State Health SystemComment on above: Performed By: #### BMP, MG, CBC, PT, PTT #### [facility] [address] [place] [address] Antique Refinisher: DOLLY PereyraOINT OF CARE GLUCOSEon [id number] [Mass/Vol]561 mg/dLCritically hzhu01-673BpgUniversity Hospitals Cleveland Medical CenterComment on above: Result Comment: Lab Draw OrderedPerformed By: #### DDIM #### [facility] [address] [address] [address] Sushila ParsonsCGLUC>600Critically kiqh28-283Pib CentervilleComment on above:Result Comment: Lab Draw OrderedPerformed By: #### DDIM #### [facility] [address] [address] [address] Sushila ParsonsCGLUC>600Critically aurr26-870Ozo CentervilleComment on above:Result Comment: Previously ConfirmedPerformed By: #### DDIM #### [facility] [address] [place] [address] Dr. Sushila ParsonsCGLUC>600Critically redy33-580Wus CentervilleComment on above:Result Comment: Lab Draw OrderedPerformed By: #### DDIM #### [facility] [address] [place] [address] Dr. Sushila DongPROF CHEM 8 (BAS METB)on 22-41-5613Gwkmo gap [Moles/Vol]13.4 mmol/LNormalThe CentervilleComment on above:Performed By: #### BMP #### [facility] [address] [place] [address] Dr. Sushila DongCalcium [Mass/Vol]12.2 mg/dLCritically high8.5-10.1The CentervilleComment on above:Performed By: #### BMP #### [facility] [address] [place] [address] Dr. Sushila DongChloride [Moles/Vol]87 mmol/LCritically ift64-854Nty CentervilleComment on above:Performed By: #### BMP #### [facility] [address] [place] [address] Dr. Sushila DongCO2 [Moles/Vol]25.9 mmol/ANfwefw99.0-32.0The [facility] Comment on above:Performed By: #### BMP #### [facility] [address] [place] [address] Dr. Sushila DongCreatinine [Mass/Vol]2.51 mg/dLCritically high0.70-1.30The CentervilleComment on above:Performed By: #### BMP #### [facility] [address] [place] [address] Dr. Sushila RileyGFR-AF GNEHUUAD22 mL/min/1.38g6Vezyvrmpdz low>=60The CentervilleComment on above:Performed By: #### BMP #### [facility] [address] [place] [address] Dr. Sushila RileyGFR-NON AF DZAGQPOY78 mL/min/1.79l3Ntyadmclvh low>=60The CentervilleComment on above:Performed By: #### BMP #### [facility] [address] [place] [address] Dr. Sushila DongGlucose [Mass/Vol]863 mg/dLCritically znlj26-616Ayf CentervilleComment on above:Performed By: #### BMP #### [facility] [address] [place] [address] Dr. Sushila DongPotassium [Moles/Vol]5.3 mmol/LCritically high3.5-5.1The CentervilleComment on above:Performed By: #### BMP #### [facility] [address] [place] [address] Dr. Sushila Quiñonezdium [Moles/Vol]120 mmol/LCritically ner001-844Yyb CentervilleComment on above:Performed By: #### BMP #### [facility] [address] [place] [address] Dr. Sushila DongUrea nitrogen [Mass/Vol]40.0 mg/dLCritically high7.0-18.0The CentervilleComment on above:Performed By: #### BMP #### [facility] [address] [place] [address] Dr. Sushila Epstein nitrogen/Creatinine [Mass ratio]15.9 mg/mgNormalThe CentervilleComment on above:Performed By: #### BMP #### [facility] [address] [place] [address] Dr. Yilan ChangAnion gap [Moles/Vol]12.7 mmol/LNormalThe [place] Comment on above:Performed By: #### DDIM #### [facility] [address] [place] [address] Dr. Sushila DongCalcium [Mass/Vol]10.8 mg/dLCritically high8.5-10.1The CentervilleComment on above:Performed By: #### DDIM #### [facility] [address] [place] [address] Dr. Sushila DongChloride [Moles/Vol]82 mmol/LCritically rgf96-823Liw CentervilleComment on above:Performed By: #### DDIM #### [facility] [address] [place] [address] Dr. Sushila DongCO2 [Moles/Vol]24.9 mmol/HNjtqis37.0-32.0[facility] Comment on above:Performed By: #### DDIM #### [facility] [address] [place] [address] Dr. Sushila DongCreatinine [Mass/Vol]2.75 mg/dLCritically high0.70-1.30The CentervilleComment on above:Performed By: #### DDIM #### [facility] [address] [place] [address] Dr. Sushila RileyGFR-AF IGHUPTBW53 mL/min/1.81w4Tlokixdhhf low>=60The CentervilleComment on above:Performed By: #### DDIM #### [facility] [address] [place] [address] Dr. Sushila RileyGFR-NON AF DBKYLICU98 mL/min/1.36v3Dvotmavxod low>=60The CentervilleComment on above:Performed By: #### DDIM #### [facility] [address] [place] [address] Dr. Sushila DongGlucose [Mass/Vol]1135 mg/dLCritically cmmz74-336Sha CentervilleComment on above:Performed By: #### DDIM #### [facility] [address] [place] [address] Dr. Sushila DongPotassium [Moles/Vol]5.6 mmol/LCritically high3.5-5.1The CentervilleComment on above:Performed By: #### DDIM #### [facility] [address] [place] [address] Dr. Sushila DongSodium [Moles/Vol]114 mmol/LCritically fyq611-037Utt CentervilleComment on above:Result Comment: Lipemic Sample, notifiedPerformed By: #### DDIM #### [facility] [address] [place] [address] Dr. Sushila DongUrea nitrogen [Mass/Vol]39.0 mg/dLCritically high7.0-18.0The CentervilleComment on above:Performed By: #### DDIM #### [facility] [address] [place] [address] Dr. Sushila Epstein nitrogen/Creatinine [Mass ratio]14.2 mg/mgNormalThe CentervilleComment on above:Performed By: #### DDIM #### [facility] [address] [place] [address] Dr. Sushila Amaya 88-13-0845OGD Coag (PPP) [Relative time]0.94 {INR} NormalThe CentervilleComment on above:Performed By: #### PT, PTT #### [facility] [address] [place] [address] Dr. Sushila Lloyd GUIDELINESSEE BELOWOhioHealth Riverside Methodist HospitalComment on above:Result Comment: DESIRED INR: 2.0 - 3.0 CONDITIONS NOT LISTED BELOW 2.5 - 3.5 FOR PROSTHETIC HEART VALVE REPLACEMENT 2.5 - 3.5 RECURRENT THROMBOSIS Performed By: #### PT, PTT #### [facility] [address] [place] [address] Dr. Sushila Morfin Coag (PPP) [Time]10.0 sNormal9.0-11.6The [place] Comment on above:Performed By: #### PT, PTT #### [facility] [address] [place] [address] Dr. Sushila Howell 14-78-1514iOEE Coag (Bld) [Time]27.1 uMjvjjc26.3-36.2The CentervilleComment on above:Performed By: #### PT, PTT #### [facility] [address] [address] [address] Sushila Zapien 87-02-6836Snylbtao, High Wdnk276 ng/LCritically high 0-22[place] State Health SystemComment on above:Result Comment: High Sensitivity Troponin values cannot be compared with other Troponin methodologies. Previous Alert Value ReportedPerformed By: #### PT, GLYHGB, CDP #### [facility] [address] [place], [place] [id number] Antique Refinisher: Vincent Sy MDTroponin, High Hzto513 ng/LCritically high0-22 [place] State Health SystemComment on above:Result Comment: High Sensitivity Troponin values cannot be compared with other Troponin methodologies.Performed By: #### BMP, MG, CBC, PT, PTT #### [facility] [address] [place] [address] Antique Refinisher: CARLOS ENRIQUE Pereyra MICROSCOPIC ONLYon [id number] SEENNormalNONE SEENUniversity Hospitals Cleveland Medical CenterCompontiac general hospital on above:Performed By: #### LAI, ERUR #### [facility] [address] [address] [address] Sushila Andrew identified Cx Nom (U)NOT INDICATEDNormalThWexner Medical CenterComment on above:Performed By: #### LAI ERUR #### [facility] [address] [address] [address] Sushila Lazar SEENNormalNONE SEENUniversity Hospitals Cleveland Medical CenterCompontiac general hospital on above:Performed By: #### LAI, ERUR #### [facility] [address] [place] [address] Dr. Sushila Boudreaux LM Nom (Urine sed)NONE SEENNormalNONE SEENThe Thomas HospitalComment on above:Performed By: #### BLAYNERO, ERUR #### [facility] [address] [place], [place] [address] Dr. Conti ChangEpithelial cells LM Ql (Urine sed)FEWAbnormalNONE SEEN /RAREThe CentervilleComment on above:Performed By: #### BLAYNERO, ERUR #### [facility] [address] [place], [place] [address] Dr. Conti ChangMUCOUSNONE SEENNormalNONE SEENThe CentervilleComment on above:Performed By: #### BLAYNERO, ERUR #### [facility] [address] [id number] [address] Sushila DongQmaapJIF3-8Lqhjxvpr2-8Ptg CentervilleComment on above:Performed By: #### LAI, ERUR #### [facility] [address] [place], [place] [address] Dr. Sushila DongWBC2-5AbnormalNONE SEENThe CentervilleComment on above: Performed By: #### BLAYNERO, ERUR #### [facility] [address] [place], [place] [address] Dr. Sushila DongXR CHEST 2 Von 63-13-2627ZV CHEST 2 VCLINICAL HISTORY: Chest pain. COMPARISON: Chest radiograph 08/26/2018. FINDINGS: PA and lateral views of the chest obtained. Cardiomediastinal silhouette is normal. Lungs are clear, no evidence of infiltrate or pleural effusion. No suspicious nodule or mass. No evidence of pneumothorax. No acute bony abnormality. IMPRESSION: No acute abnormality. Electronically authenticated by: LION ZHU Date: 2022-05-23 02:59[facility] with Auto Differentialon 24-08-2755Vmdnxmhh Eos #0.10[facility] HEALTHAbsolute Lymph #2.30[facility] HEALTHAbsolute Winston # 0.80[facility] HEALTHBasophils (Bld) [#/Vol]0.00 10*3/uLBON [facility]RS MERCY HEALTHBasophils/100 WBC (Bld)1 %0 - 2 %[facility] HEALTHEosinophils/100 WBC (Bld)2 %1 - 4 %[facility]BE[facility]UREG[facility] HEALTHHematocrit (Bld) [Volume fraction] 40.3 %Low41 - 53 %[facility]BE[facility] HEALTHHemoglobin (Bld) [Mass/Vol]13.5 g/dL 13.5 - 17.5 g/dLBON SECBEAUREGARD [facility] HEALTHInterpretation and review of laboratory resultsAbnormalBON [facility]BEAUREG[facility] HEALTHLymphocytes/100 WBC (Bld)32 %24 - 44 %[facility]ON [facility] HEALTHH (RBC) [Entitic mass]28.2 pg26 - 34 pgBON [facility]RS SUMMA HEALTHHC (RBC) [Mass/Vol]33.6 g/dL31 - 37 g/dLBON SECCLEVELAND CLINIC HILLCREST HOSPITALV (RBC) [Entitic vol]84.1 fL80 - 100 fLBON [facility]OURS [facility] HEALTHMonocytes/100 WBC (Bld)11 %2 - 11 %[facility] SECBEAUREGARD MEMORIAL [facility]OSPITAL HEALTHPlatelet distribution width (Bld) [Ratio]13.9 %12.5 - 15.4 %[facility]BEAUREG[facility] HEALTHPlatelet mean volume (Bld) [Entitic vol]7.2 fL6 - 12 fLBON [facility] HEALTHPlatelets (Bld) [#/Vol]256 10*3/uLBON [facility] HEALTHRBC (Bld) [#/Vol]4.79 10*6/uL4.5 - 5.9 m/uLBON [facility] URBANA HOSPITALSegmented neutrophils/100 WBC (Bld)54 %36 - 66 %[facility] HEALTHSegs Absolute3.90[facility] HEALTHWBC (Bld) [#/Vol]7.1 10*3/uLBON SECOURS [facility] SECBEAUREGARD [facility]IAL [facility]ITAL HEALTHComprehensive Metabolic Panelon [id number] [Mass/Vol]4.3 g/dL3.5 - 5.2 g/dLBON SECBEAUREGARD [facility] HEALTHAlbumin/Globulin [Mass ratio]1.3 {ratio}1 - 2.5BON SECBEAUREGARD [facility]OSPITAL HEALTHALP (Bld) [Catalytic activity/Vol]85 U/L40 - 129 U/LBON [facility]BEAUREG[facility]ITAL HEALTHALT [Catalytic activity/Vol]36 U/L5 - 41 U/LBON SECSUMMA HEALTH BARBERTON CAMPUSAnion gap [Moles/Vol]8 mmol/LLow9 - 17 mmol/LBON [facility] HEALTHAST [Catalytic activity/Vol]22 U/LNINF - 40 U/LBON SECEVERGREENHEALTH MONROEY HEALTHBilirubin [Mass/Vol]0.44 mg/dL0.3 - 1.2 mg/dLBON SECBEAUREGARD [facility] HEALTHCalcium [Mass/Vol]10.5 mg/dLHigh8.6 - 10.4 mg/dLBON [facility]BEAURE[facility] HEALTHChloride [Moles/Vol]106 mmol/L98 - 107 mmol/LBON [facility] HEALTHCO2 [Moles/Vol]23 mmol/L20 - 31 mmol/LBON [facility] HEALTHCreatinine [Mass/Vol]1.46 mg/dLHigh0.7 - 1.2 mg/dLBON SECSUMMA HEALTH BARBERTON CAMPUSFree PSA/Total PSA [Mass fraction]7.7 g/dL6.4 - 8.3 g/dLBON [facility] CareToSaveGFR >6060 - PINF mL/minBON [facility] HEALTHGFR Non- Tazxedeb18 mL/momRzq67 - PINF mL/minBON [facility] HEALTHGFR/1.73 sq M.predicted MDRD (S/P/Bld) [Vol rate/Area][facility] URBANA HOSPITALComment on above:Average GFR for 30-39 years old: 107 mL/min/1.73sq m Chronic Kidney Disease: <60 mL/min/1.73sq m Kidney failure: <15 mL/min/1.73sq m eGFR calculated using average adult body mass. Additional eGFR calculator available at: http://www.SendtoNews.GoTable/multiple_crcl_2012.htm Glucose [Mass/Vol]96 mg/dL70 - 99 mg/dLBON MER[facility] HEALTH URBANA HOSPITALInterpretation and review of laboratory resultsAbnormalBON [facility] HEALTHPotassium [Moles/Vol]5.4 mmol/LHigh3.7 - 5.3 mmol/LBON [facility]BEAUREG[facility] HEALTHSodium [Moles/Vol]137 mmol/L135 - 144 mmol/LBON [facility] MERCY HEALTHUrea nitrogen (BldV) [Mass/Vol]21 mg/dLHigh6 - 20 mg/dLBON [facility] HEALTHB[facility] HEALTHAlbuminon 15-65-9608Czvyexh [Mass/Vol]4.2 g/dL3.5 - 5.2 g/dLBON [facility]ERY HEALTHBasic Metabolic Panelon 46-94-7585Gxylr gap [Moles/Vol]11 mmol/L9 - 17 mmol/LBON [facility] HEALTHCalcium [Mass/Vol]11.5 mg/dLHigh8.6 - 10.4 mg/dLB[facility] HEALTHChloride [Moles/Vol]107 mmol/L98 - 107 mmol/L [facility] HEALTHCO2 [Moles/Vol]21 mmol/L20 - 31 mmol/LBON [facility] HEALTHCreatinine [Mass/Vol]1.47 mg/dLHigh0.7 - 1.2 mg/dLB[facility] HEALTH GFR >6060 - PINF mL/minB[facility] HEALTHGFR Non- Fauzmpjl01 mL/qtkZhp89 - PINF mL/minB[facility] HEALTHGlucose [Mass/Vol]90 mg/dL70 - 99 mg/dLB[facility] HEALTHPotassium [Moles/Vol]4.6 mmol/L3.7 - 5.3 mmol/LBON [facility] HEALTHSodium [Moles/Vol]139 mmol/L135 - 144 mmol/L [facility] HEALTHUrea nitrogen (BldV) [Mass/Vol]27 mg/dLHigh6 - 20 mg/dL [facility]ENTERY HEALTHUrea nitrogen/Creatinine (Bld) [Mass ratio]189 - 20B[facility]ENTERY HEALTHCBCon [id number] (Bld) [Volume fraction]42.5 %40.7 - 50.3 %[facility]ENTERY HEALTHHemoglobin (Bld) [Mass/Vol]14.1 g/dL13 - 17 g/dL [facility] HEALTHH (RBC) [Entitic mass]28.1 pg25.2 - 33.5 pgBON [facility]RS SUMMA HEALTHHC (RBC) [Mass/Vol]33.2 g/dL28.4 - 34.8 g/dLBON [facility]RS [facility]ENTERY HEALTHMCV (RBC) [Entitic vol]84.8 fL82.6 - 102.9 fLRESTON HOSPITAL CENTERNRBC Automated0.00.0 per 100 WBCBON MERCY HEALTH URBANA HOSPITALPlatelet distribution width (Bld) [Ratio]12.7 %11.8 - 14.4 %[facility] URBANA HOSPITALPlatelet mean volume (Bld) [Entitic vol]9.3 fL8.1 - 13.5 fLRESTON HOSPITAL CENTERPlatelets (Bld) [#/Vol]257 10*3/uLBON [facility] HEALTH URBANA HOSPITALRBC (Bld) [#/Vol]5.01 10*6/uL4.21 - 5.77 m/uLRESTON HOSPITAL CENTERWBC (Bld) [#/Vol]6.3 10*3/uLBON [facility]AL HOSPITALCalcium, Ionizedon [id number], Ionized1.6 mmol/LHigh1.13 - 1.33 mmol/LBON [facility] URBANA HOSPITALInterpretation and review of laboratory resultsAbnoDe Smet [facility] - Chemistry and Chemistry - challengeon [id number]/1.73 sq M.predicted MDRD (S/P/Bld) [Vol rate/Area][facility]OSPITAL CENTERComment on above:Average GFR for 30-39 years old: 107 mL/min/1.73sq m Chronic Kidney Disease: <60 mL/min/1.73sq m Kidney failure: <15 mL/min/1.73sq m eGFR calculated using average adult body mass. Additional eGFR calculator available at: http://www.SendtoNews.GoTable/multiple_crcl_2012.htm Stage 1: Some kidney damage normal GFR Stage 2: Mild kidney damage GFR 60-89 Stage 3: Moderate kidney damage GFR 30-59 Stage 4: Severe kidney damage GFR 15-29 Stage 5: Severe kidney damage GFR <15 ESRD - chronic treatment by dialysis or transplant No Panel Informationon [id number] and review of laboratory results AbnormalBON [facility]USTER REGIONAL HOSPITALPTH, [place] 09-28-2021 Interpretation and review of laboratory resultsAbnormSentara [facility] Pth Tkyhby691.2 pg/dSIjdp41 - 65 pg/mLBON St. Anthony's Hospitalment on above: SAMPLES FROM PATIENTS ROUTINELY RECEIVING HIGH DOSE BIOTIN THERAPY MAY SHOW FALSELY DEPRESSED RESULTS. ADDITIONAL INFORMATION MAY BE REQUIRED FOR DIAGNOSIS. [facility]ON [facility] URBANA HOSPITALPhosphoruson [id number] [Mass/Vol]2.4 mg/dLLow 2.5 - 4.5 mg/dLBON [facility] URBANA HOSPITALProtein / creatinine ratio, urineon 83-86-1050Llafuyhuom, Ur112.4 mg/dL39 - 259 mg/dLBON [facility] Interpretation and review of laboratory resultsAbnoAugusta Health Protein (U) [Mass/Vol]95 mg/dLBON St. Anthony's Hospitalment on above:No normal range established.Urine Total Protein Creatinine Ratio0.19Yaym8 - 0.2B[facility] HOSPITALBasic Metabolic Panelon 09-17-2021 Anion gap [Moles/Vol]9 mmol/L9 - 17 mmol/LBON [facility] URBANA HOSPITALCalcium [Mass/Vol]8.6 mg/dL8.6 - 10.4 mg/dLBON [facility] HEALTH URBANA HOSPITALChloride [Moles/Vol] 111 mmol/LHigh98 - 107 mmol/LBON [facility] URBANA HOSPITALCO2 [Moles/Vol]21 mmol/L20 - 31 mmol/LBON [facility] URBANA HOSPITALCreatinine [Mass/Vol]1.31 mg/dLHigh0.7 - 1.2 mg/dLBON [facility]ALTH URBANA HOSPITALGFR >6060 - PINF mL/minRESTON HOSPITAL CENTERGFR Non->6060 - PINF mL/minRESTON HOSPITAL CENTER Glucose [Mass/Vol]98 mg/dL70 - 99 mg/dLBON [facility] URBANA HOSPITALInterpretation and review of laboratory resultsAbnormalRESTON HOSPITAL CENTERPotassium [Moles/Vol]4.7 mmol/L3.7 - 5.3 mmol/LBON [facility] HEALTH URBANA HOSPITALSodium [Moles/Vol] 141 mmol/L135 - 144 mmol/LBON [facility] URBANA HOSPITALUrea nitrogen (BldV) [Mass/Vol]15 mg/dL6 - 20 mg/dLBON SECBeijing Buding Fangzhou Science and TechnologyY HEALTHUrea nitrogen/Creatinine (Bld) [Mass ratio]119 - 20BON SECDEPARTMENT OF VETERANS AFFAIRS [facility] Laboratory - Chemistry and Chemistry - challengeon [id number]/1.73 sq M.predicted MDRD (S/P/Bld) [Vol rate/Area][facility] CAMPUSHealth Impact Solutions [facility] MEDICAL CENTERAvaamo [facility] HOSPITALComment on above:Average GFR for 30-39 years old: 107 mL/min/1.73sq m Chronic Kidney Disease: <60 mL/min/1.73sq m Kidney failure: <15 mL/min/1.73sq m eGFR calculated using average adult body mass. Additional eGFR calculator available at: http://www.Fliiby/multiple_crcl_2011.htm Stage 1: Some kidney damage normal GFR Stage 2: Mild kidney damage GFR 60-89 Stage 3: Moderate kidney damage GFR 30-59 Stage 4: Severe kidney damage GFR 15-29 Stage 5: Severe kidney damage GFR <15 ESRD - chronic treatment by dialysis or transplant CBC with Auto Differentialon [id number] Eos #0.22[facility] CareToSaveAbsolute Immature Granulocyte<0.03[facility] HEALTHAbsolute Lymph # 2.23[facility] HEALTHAbsolute Winston #0.70[facility] HEALTHBasophils (Bld) [#/Vol]0.06 10*3/uLBON [facility] CareToSaveBasophils/100 WBC (Bld)1 %0 - 2 %[facility] E-Car ClubY CareToSaveEosinophils/100 WBC (Bld)3 %1 - 4 %[facility] JelliHematocrit (Bld) [Volume fraction]38.9 %Low40.7 - 50.3 %[facility] CareToSaveHemoglobin (Bld) [Mass/Vol]12.4 g/dLLow13.0 - 17.0 g/dLB[facility] CareToSaveImmature granulocytes/100 WBC (Bld)0 %0BON SECCompuTEK Industries, LLC. Interpretation and review of laboratory resultsAbnormalBON SECHealth Impact Solutions UC MEDICAL CENTERPopdust Lymphocytes/100 WBC (Bld)32 %24 - 43 %[facility] MEDICAL CENTERPopdustMCH (RBC) [Entitic mass]28.6 pg25.2 - 33.5 pgBON [facility]RS MERCY HEALTHMCHC (RBC) [Mass/Vol]31.9 g/dL28.4 - 34.8 g/dLB[facility] HEALTHMCV (RBC) [Entitic vol]89.8 fL82.6 - 102.9 fLBON SEC[facility]RS MERCY HEALTHMonocytes/100 WBC (Bld)10 %3 - 12 %[facility] HEALTHNRBC Automated0.00.0 per 100 WBCB[facility]CY HEALTHPlatelet distribution width (Bld) [Ratio]12.7 %11.8 - 14.4 %[facility] Platelet mean volume (Bld) [Entitic vol]10.6 fL8.1 - 13.5 fLBON SECOURS MERCY HEALTHPlatelets (Bld) [#/Vol]319 10*3/uLB[facility] HEALTHRBC (Bld) [#/Vol]4.33 10*6/uL4.21 - 5.77 m/uLBON [facility]RS MERCY HEALTHSeg Qnbwchpcxbx08 %36 - 65 %[facility] HEALTHSegs Absolute3.69[facility] HEALTHWBC (Bld) [#/Vol]6.9 10*3/uLB[facility] HEALTHB[facility] HEALTHBasic Metabolic Panelon 65-56-1690Aianr gap [Moles/Vol]13 mmol/L9 - 17 mmol/LB[facility] HEALTHCalcium [Mass/Vol]8.7 mg/dL8.6 - 10.4 mg/dLB[facility] HEALTHChloride [Moles/Vol]104 mmol/L98 - 107 mmol/LB[facility] HEALTHCO2 [Moles/Vol]20 mmol/L20 - 31 mmol/LB[facility] HEALTHCreatinine [Mass/Vol] 1.82 mg/dLHigh0.70 - 1.20 mg/dLB[facility] HEALTHGFR Elpdblas54 mL/minLow>60[facility] HEALTHGFR Non- Jtnesryz50 mL/minLow>60[facility] HEALTHGFR/1.73 sq M.predicted MDRD (S/P/Bld) [Vol rate/Area][facility] HEALTHGlucose [Mass/Vol]167 mg/kSZnor10 - 99 mg/dLBON [facility] URBANA HOSPITALInterpretation and review of laboratory resultsAbnormalBON [facility] URBANA HOSPITALPotassium [Moles/Vol]3.6 mmol/LLow3.7 - 5.3 mmol/LBON SECSUMMA HEALTH BARBERTON CAMPUSSodium [Moles/Vol]137 mmol/L135 - 144 mmol/LBON [facility] URBANA HOSPITALUrea nitrogen (BldV) [Mass/Vol]30 mg/dLHigh6 - 20 mg/dLBON [facility] URBANA HOSPITALBON [facility] URBANA HOSPITALCBC with Auto Differentialon [id number] Eos #0.08BON [facility] URBANA HOSPITALAbsolute Immature Granulocyte0.04[facility] Absolute Lymph #1.41B[facility] URBANA HOSPITALAbsolute Winston #0.92B[facility] URBANA HOSPITALBasophils (Bld) [#/Vol]0.06 10*3/uLBON [facility] URBANA HOSPITALBasophils/100 WBC (Bld)1 %0 - 2 %[facility]PITAL CENTEREosinophils/100 WBC (Bld)1 %1 - 4 % [facility]ITAL CENTERHematocrit (Bld) [Volume fraction]38.5 %Low40.7 - 50.3 % [facility] CENTERHemoglobin (Bld) [Mass/Vol]12.9 g/dLLow13.0 - 17.0 g/dL [facility] CENTERImmature granulocytes/100 WBC (Bld)1 %Pbkh8MLE [facility] UR[facility]NA HOSPITALInterpretation and review of laboratory resultsAbnormalBON MER[facility] HEALTH URBANA HOSPITALLymphocytes/100 WBC (Bld)16 %Low24 - 43 %[facility] HOSPITALH (RBC) [Entitic mass]28.9 pg25.2 - 33.5 pgRIVERSIDE SHORE MEMORIAL HOSPITALHC (RBC) [Mass/Vol]33.5 g/dL28.4 - 34.8 g/dLBON SUMMA HEALTHV (RBC) [Entitic vol]86.1 fL82.6 - 102.9 fLRESTON HOSPITAL CENTERMonocytes/100 WBC (Bld)11 %3 - 12 %[facility] SECBeijing Buding Fangzhou Science and TechnologyY HEALTHNRBC Automated0.00.0 per 100 WBCB[facility] MERCY HEALTHPlatelet distribution width (Bld) [Ratio]12.4 %11.8 - 14.4 %[facility] HEALTHPlatelet mean volume (Bld) [Entitic vol]10.5 fL8.1 - 13.5 fLBON SECOURS MERCY HEALTHPlatelets (Bld) [#/Vol]316 10*3/uLB[facility]ALTH RBC (Bld) [#/Vol]4.47 10*6/uL4.21 - 5.77 m/uLBON SECOURS MERCY HEALTHSeg Awohsolnpxg58 %High36 - 65 %[facility] HEALTHSegs Absolute6.22[facility] HEALTHWBC (Bld) [#/Vol]8.7 10*3/uLBON SECOURS MERCY HEALTHBON [facility] E-Car ClubY HEALTHCT CHEST WO CONTRASTon [id number] RIS CONSOLIDATEDMHPN RIS CONSOLIDATEDBON SECOURS E-Car ClubY HEALTH Work Phone: radiology Study observation (narrative)[facility] Work Phone: cT CHEST WO CONTRASTOrdered By: Salty Gerard on [id number] [employer] HEALTH Work Phone: afp Tumor Markeron [id number] (Alpha Fetoprotein) 1.5 ug/L<8.4[facility]-Car ClubY HEALTHB[facility] E-Car ClubY HEALTHBasic Metabolic Panel w/ Reflex to MGon [id number] gap [Moles/Vol]10 mmol/L9 - 17 mmol/LBON [facility] HEALTHCalcium [Mass/Vol]10.4 mg/dL8.6 - 10.4 mg/dLBON SECOURS MERCY HEALTHChloride [Moles/Vol]106 mmol/L98 - 107 mmol/LBON [facility] HEALTHCO2 [Moles/Vol]26 mmol/L20 - 31 mmol/LB[facility] HEALTHCreatinine [Mass/Vol]1.84 mg/dLHigh0.70 - 1.20 mg/dLBON SECOURS MERCY HEALTHGFR Peneonte95 mL/minLow>60[facility] HEALTHGFR Non- Rujjmkkm90 mL/min Low>60[facility] HEALTHGFR/1.73 sq M.predicted MDRD (S/P/Bld) [Vol rate/Area][facility] HOSPITALGlucose [Mass/Vol]83 mg/dL70 - 99 mg/dLBON SECSUMMA [facility]BERTON CAMPUSInterpretation and review of laboratory resultsAbnormalBON SECOU[facility]OSPITALPotassium [Moles/Vol]4.0 mmol/L3.7 - 5.3 mmol/LBON SECSUM[facility]ON CAMPUSSodium [Moles/Vol]142 mmol/L135 - 144 mmol/LBON [facility] Urea nitrogen (BldV) [Mass/Vol]39 mg/dLHigh6 - 20 mg/dLBON SECSUMMA [facility]AMPUS BON [facility]OSPITALCBC with Auto Differentialon [id number] Eos # 0.27B[facility]OSPITALAbsolute Immature Granulocyte0.04B[facility]OSPITALAbsolute Lymph #2.10[facility]OSPITALAbsolute Winston #0.67BON SECSUM[facility]ON CAMPUSBasophils (Bld) [#/Vol]0.07 10*3/uLBON [facility] Basophils/100 WBC (Bld)1 %0 - 2 %[facility]ENTEREosinophils/100 WBC (Bld)3 %1 - 4 %[facility] CENTERHematocrit (Bld) [Volume fraction]41.5 % 40.7 - 50.3 %[facility] CENTERHemoglobin (Bld) [Mass/Vol]13.3 g/dL13.0 - 17.0 g/dLBON SECSUM[facility]ERTON CAMPUSImmature granulocytes/100 WBC (Bld)1 %Wbnx9TTC [facility] HOSPITALInterpretation and review of laboratory resultsAbnormalBON [facility] URBANA HOSPITALLymphocytes/100 WBC (Bld)24 %24 - 43 %[facility]ITALH (RBC) [Entitic mass]28.5 pg25.2 - 33.5 pgBON SUMMA HEALTHHC (RBC) [Mass/Vol]32.0 g/dL28.4 - 34.8 g/dLBON SECOURS [facility] HEALTHMCV (RBC) [Entitic vol]88.9 fL82.6 - 102.9 fLBON SECOURS [facility] HEALTHMonocytes/100 WBC (Bld)8 %3 - 12 %[facility] HEALTHNRBC Automated0.00.0 per 100 WBCBON SECOURS MERCY HEALTHPlatelet distribution width (Bld) [Ratio]12.3 %11.8 - 14.4 % [facility] HEALTHPlatelet mean volume (Bld) [Entitic vol]10.1 fL8.1 - 13.5 fLBON SECOURS [facility]ENT[facility] HEALTHPlatelets (Bld) [#/Vol]370 10*3/uLBON [facility] HEALTHRBC (Bld) [#/Vol]4.67 10*6/uL4.21 - 5.77 m/uLBON SEC[facility]RS [facility]ERY HEALTHSeg Djeuiuvpzre45 %36 - 65 %[facility]CY HEALTHSegs Absolute5.44B[facility] HEALTHWBC (Bld) [#/Vol]8.6 10*3/uLBON SECOURS [facility] HEALTHBON [facility] HEALTHVitamin D 25 Hydroxyon [id number] and review of laboratory resultsAbnormalBON SECOURS [facility]ERY HEALTHVit D, 25-Qmhtozl60.9 ng/mL Low>29.9B[facility] SEC[facility] HEALTHB[facility] HEALTHBasic Metabolic Panel w/ Reflex to MGon 97-26-5011Pntoh gap [Moles/Vol]13 mmol/L9 - 17 mmol/LBON SECOURS E-Car ClubY HEALTHCalcium [Mass/Vol]10.7 mg/dLHigh8.6 - 10.4 mg/dLBON SEC[facility]RS MERCY HEALTHChloride [Moles/Vol]100 mmol/L98 - 107 mmol/LBON [facility] HEALTHCO2 [Moles/Vol]26 mmol/L20 - 31 mmol/LBON [facility] HEALTHCreatinine [Mass/Vol] 2.12 mg/dLHigh0.70 - 1.20 mg/dLBON SEC[facility]RS MERCY HEALTHGFR Fruevbeh05 mL/minLow>60B[facility] HEALTHGFR Non- Nrlqgcbo61 mL/minLow>60BON SECOURS E-Car ClubY HEALTHGFR/1.73 sq M.predicted MDRD (S/P/Bld) [Vol rate/Area]BON [facility] HOSPITALGlucose [Mass/Vol]110 mg/iCVirx81 - 99 mg/dLBON SECSUM[facility]ON CAMPUSInterpretation and review of laboratory resultsAbnormalBON SECSUMMA [facility]ON CAMPUSPotassium [Moles/Vol]3.6 mmol/LLow3.7 - 5.3 mmol/LBON [facility]ITALSodium [Moles/Vol]139 mmol/L135 - 144 mmol/LBON SECSUM[facility]ON CAMPUSUrea nitrogen (BldV) [Mass/Vol]41 mg/dLHigh6 - 20 mg/dLBON SECOURS BARNESVILLE HOSPITALBON SECSUMMA [facility]ON CAMPUSCBC with Auto Differentialon [id number] Eos #0.26BON SECSUM[facility]ON CAMPUSAbsolute Immature Granulocyte0.03B[facility] Absolute Lymph #3.18[facility]OSPITALAbsolute Winston #0.97BON SEC[facility] CAMPUSBasophils (Bld) [#/Vol]0.08 10*3/uLBON SECSUM[facility] CAMPUSBasophils/100 WBC (Bld)1 %0 - 2 %BON [facility] HOSPITALEosinophils/100 WBC (Bld)3 %1 - 4 % [facility] CENTERHematocrit (Bld) [Volume fraction]40.3 %Low40.7 - 50.3 % [facility] CENTERHemoglobin (Bld) [Mass/Vol]13.0 g/dL13.0 - 17.0 g/dLBON SECSUMMA [facility]ERTON CAMPUSImmature granulocytes/100 WBC (Bld)0 %0BON SECSUM[facility]AMPUSInterpretation and review of laboratory resultsAbnormalBON [facility] URBANA HOSPITALLymphocytes/100 WBC (Bld)34 %24 - 43 %[facility]PITALH (RBC) [Entitic mass]28.4 pg25.2 - 33.5 pgBON SUMMA HEALTHHC (RBC) [Mass/Vol] 32.3 g/dL28.4 - 34.8 g/dLBON SECCLEVELAND CLIN[facility]ST HOSPITALV (RBC) [Entitic vol]88.2 fL 82.6 - 102.9 fLBON SECOURS MERCY HEALTHMonocytes/100 WBC (Bld)11 %3 - 12 %[facility] SEC[employer] [facility] HEALTHNRBC Automated0.00.0 per 100 WBCLEWISGALE [facility]PITAL ALLEGH[facility] HEALTH Platelet distribution width (Bld) [Ratio]12.2 %11.8 - 14.4 %[facility]ENTERY HEALTHPlatelet mean volume (Bld) [Entitic vol]11.5 fL8.1 - 13.5 fLBON SECOURS [facility] HEALTHPlatelets (Bld) [#/Vol]401 10*3/uLBON [facility] HEALTHRBC (Bld) [#/Vol]4.57 10*6/uL4.21 - 5.77 m/uLBON SECMARIA ELENA [facility] HEALTHSeg Nqreddtgkni04 %36 - 65 %[facility] SECBEAUREGARD [facility]ORIAL [facility] HEALTHSegs Absolute4.72BON SECMARIA ELENA [facility] HEALTHWBC (Bld) [#/Vol]9.2 10*3/uLBON SECSUMMA [facility]ALTH BARBERTON CAMPUSBON SECBEAUREGARD MEMORIAL [facility]PITAL HEALTHSPECIMEN REJECTIONon [id number] TestBMPXBON SECBEAUREGARD [facility]ORIAL [facility]ITAL HEALTHReason for RejectionUnable to perform testing: Specimen hemolyzed.[facility] Specimen source Nom (Unsp spec).BLOODSIERRA [facility] SEC[facility] SECBEAUREGARD [facility]ORIAL [facility] HEALTHOrdered TestBMPXBON SEC[facility]RS [facility] HEALTHReason for RejectionUnable to perform testing: Specimen hemolyzed.[facility] SECBeijing Buding Fangzhou Science and TechnologyREGENCY HOSPITAL TOLEDOSpecimen source Nom (Unsp spec).BLOODSIERRA VIST[facility] SECMER[facility] SECSUMMA HEALTH BARBERTON CAMPUSBasic Metabolic Panel w/ Reflex to MGon 90-28-4858Hyikn gap [Moles/Vol]14 mmol/L9 - 17 mmol/L [facility] HEALTHCalcium [Mass/Vol]10.4 mg/dL8.6 - 10.4 mg/dLBON SEC[facility]RS [facility] HEALTHChloride [Moles/Vol]102 mmol/L98 - 107 mmol/LBON [facility] HEALTHCO2 [Moles/Vol]23 mmol/L20 - 31 mmol/LBON [facility] HEALTHCreatinine [Mass/Vol]1.82 mg/dLHigh0.70 - 1.20 mg/dLBON SECEVERGRE[facility]HE[facility] MONROEY HEALTHGFR Ckpdaujc25 mL/minLow>60B[facility] HEALTHGFR Non- Lunecyrx09 mL/min Low>60B[facility] HEALTHGFR/1.73 sq M.predicted MDRD (S/P/Bld) [Vol rate/Area][facility] HEALTHGlucose [Mass/Vol]141 mg/tFRomc45 - 99 mg/dL [facility] HEALTHInterpretation and review of laboratory resultsAbnormal [facility] HEALTHPotassium [Moles/Vol]3.7 mmol/L3.7 - 5.3 mmol/LBON [facility] HEALTHSodium [Moles/Vol]139 mmol/L135 - 144 mmol/LBON [facility] HEALTHUrea nitrogen (BldV) [Mass/Vol]37 mg/dLHigh6 - 20 mg/dLBON SEC[facility]RS MERCY HEALTHBON [facility] HEALTHAnion gap [Moles/Vol]11 mmol/L9 - 17 mmol/L [facility] HEALTHCalcium [Mass/Vol]10.5 mg/dLHigh8.6 - 10.4 mg/dLBON [facility] HEALTHChloride [Moles/Vol]106 mmol/L98 - 107 mmol/LBON [facility] HEALTHCO2 [Moles/Vol]27 mmol/L20 - 31 mmol/LB[facility] Creatinine [Mass/Vol]1.95 mg/dLHigh0.70 - 1.20 mg/dLBON [facility] HEALTHGFR Ixsphjiw93 mL/minLow>60B[facility] HEALTHGFR Non- 39 mL/minLow>60B[facility] HEALTHGFR/1.73 sq M.predicted MDRD (S/P/Bld) [Vol rate/Area][facility] HEALTHGlucose [Mass/Vol]130 mg/eONgfx68 - 99 mg/dLBON [facility] HEALTHInterpretation and review of laboratory results AbnormalBON [facility] HEALTHPotassium [Moles/Vol]3.2 mmol/LLow3.7 - 5.3 mmol/LBON [facility] HEALTHSodium [Moles/Vol]144 mmol/L135 - 144 mmol/LBON [facility] HEALTHUrea nitrogen (BldV) [Mass/Vol]40 mg/dLHigh6 - 20 mg/dLBON SECOURS MERCY HEALTHBON SEC[facility] MERCY HEALTHC-Reactive Proteinon [id number] [Mass/Vol]29.4 mg/LHigh0.0 - 5.0 mg/LBON [facility] HOSPITALInterpretation and review of laboratory resultsAbnormalBON [facility] HOSPITALCBC with Auto Differentialon [id number] Eos #0.12BON [facility] HOSPITALAbsolute Immature Granulocyte0.04BON [facility] HOSPITALAbsolute Lymph # 2.32BON [facility] HOSPITALAbsolute Winston #1.03BON [facility] HOSPITALBasophils (Bld) [#/Vol]0.06 10*3/uLBON [facility] HOSPITALBasophils/100 WBC (Bld)1 %0 - 2 %[facility] CENTEREosinophils/100 WBC (Bld)1 %1 - 4 %[facility] CENTERHematocrit (Bld) [Volume fraction]40.7 %40.7 - 50.3 %[facility] CENTERHemoglobin (Bld) [Mass/Vol]12.7 g/dLLow13.0 - 17.0 g/dLBON [facility] UR[facility] HOSPITALImmature granulocytes/100 WBC (Bld)0 %0BON [facility] Interpretation and review of laboratory resultsAbnormalBON [facility] Lymphocytes/100 WBC (Bld)23 %Low24 - 43 %[facility]PITALH (RBC) [Entitic mass]28.6 pg25.2 - 33.5 pgRIVERSIDE SHORE MEMORIAL HOSPITALHC (RBC) [Mass/Vol] 31.2 g/dL28.4 - 34.8 g/dLBON SUMMA HEALTHV (RBC) [Entitic vol]91.7 fL 82.6 - 102.9 fLRESTON HOSPITAL CENTERMonocytes/100 WBC (Bld)10 %3 - 12 %[facility] CENTERNRBC Automated0.00.0 per 100 WBCRESTON HOS[facility]ENTER Platelet distribution width (Bld) [Ratio]12.7 %11.8 - 14.4 %[facility] CENTERPlatelet mean volume (Bld) [Entitic vol]10.7 fL8.1 - 13.5 fLBON SECMARIA ELENA [facility]ENTERY HEALTHPlatelets (Bld) [#/Vol]417 10*3/uLBON SECMARIA ELENA [facility]ENT[facility] HEALTHRBC (Bld) [#/Vol]4.44 10*6/uL4.21 - 5.77 m/uLBON SECMARIA ELENA UC MEDICAL CENTERJed HEALTHSeg Hiairvrtwgu71 %36 - 65 %BON SECMARIA ELENA [facility] HEALTHSegs Absolute6.35BON SECMARIA ELENA UC MEDICAL CENTERJed HEALTHWBC (Bld) [#/Vol]9.9 10*3/uLBON SECMARIA ELENA [facility]ERY HEALTHSIER[facility] SECMARIA ELENA [facility] HEALTHCOVID- 19, Rapidon [id number]-CoV-2 (COVID-19) RNA VIK+probe Ql (Unsp spec)Not detectedNot DetectedBON SECBEAUREGARD [facility] HEALTHSpecimen Description.NASOPHARYNGEAL SWABBON SECMERCY [facility] SECSUMMA HEALTH BARBERTON CAMPUSCardiolipin antibody, IgAon 18-39-6591Wclygtjyvplsnma IgA7.6BON SEC[facility] HEALTH Magnesiumon 88-12-3424Jafnqkzqf [Mass/Vol]2.3 mg/dL1.6 - 2.6 mg/dLBON SEC[facility] [place][NOTE 2] PARATHYORID W SPECTon [id number] RIS CONSOLIDATEDPN RIS [facility] Work Phone: radiology Study observation (narrative)[facility] [employer] Work Phone: nm PARATHYORID W SPECTOrdered By: Lyndon Magaña on [id number] HEALTH Work Phone: No Panel Informationon [id number] RIS CONSOLIDATED PN RIS CONSOLIDATEDSIERRA VISTA REG[facility] SEC[facility] HEALTH Work Phone: bON [facility]ALTH Work Phone: radiology Study observation (narrative)[facility] [employer] Work Phone: sedimentation Rateon [id number] and review of laboratory resultsAbnormalBON SECEVERGRE[facility]HE[facility] MONROEY HEALTHSed Jtlz85EsfzHAO CUSTER REGIONAL HOSPITALTSH with Reflexon [id number] Qn 0.82 m[IU]/LBON [facility] HOSPITALBasic Metabolic Panel w/ Reflex to MGon [id number] gap [Moles/Vol]12 mmol/L9 - 17 mmol/LBON [facility] HEALTHCalcium [Mass/Vol]10.3 mg/dL8.6 - 10.4 mg/dLBON [facility] HEALTHChloride [Moles/Vol]106 mmol/L98 - 107 mmol/LBON [facility]OU[facility] HEALTHCO2 [Moles/Vol]27 mmol/L20 - 31 mmol/LBON [facility] HOSPITALCreatinine [Mass/Vol]1.99 mg/dLHigh0.70 - 1.20 mg/dLBON [facility] URBANA HOSPITALGFR Aqmfgcje07 mL/minLow>60BON [facility] HOSPITALGFR Non- Xnvnbgrp37 mL/min Low>60BON [facility] HOSPITALGFR/1.73 sq M.predicted MDRD (S/P/Bld) [Vol rate/Area][facility] CENTERGlucose [Mass/Vol]124 mg/lOYruc26 - 99 mg/dL [facility]ENTERInterpretation and review of laboratory resultsAbnormal BON [facility] HOSPITALPotassium [Moles/Vol]3.5 mmol/LLow3.7 - 5.3 mmol/LBON [facility] URBANA HOSPITALSodium [Moles/Vol]145 mmol/LQayc268 - 144 mmol/LBON [facility] URBANA HOSPITALUrea nitrogen (BldV) [Mass/Vol]42 mg/dLHigh6 - 20 mg/dLBON [facility] REG[facility] HOSPITALAnion gap [Moles/Vol]14 mmol/L9 - 17 mmol/L BON [facility] HOSPITALCalcium [Mass/Vol]10.5 mg/dLHigh8.6 - 10.4 mg/dLBON [facility] HEALTHChloride [Moles/Vol]110 mmol/LHigh98 - 107 mmol/LBON [facility] URBA[facility] HOSPITALCO2 [Moles/Vol]26 mmol/L20 - 31 mmol/LBON [facility] Creatinine [Mass/Vol]1.74 mg/dLHigh0.70 - 1.20 mg/dLBON SEC[facility] HEALTHGFR Ahgknhxm06 mL/minLow>60B[facility] HEALTHGFR Non- 44 mL/minLow>60B[facility]PITALGFR/1.73 sq M.predicted MDRD (S/P/Bld) [Vol rate/Area][facility] HOSPITALGlucose [Mass/Vol]121 mg/cLUptp24 - 99 mg/dLBON SECSUMMA [facility] BARBERTON CAMPUSInterpretation and review of laboratory results AbnormalBON [facility]PITALPotassium [Moles/Vol]3.9 mmol/L3.7 - 5.3 mmol/L BON SECSUMMA HEALTH BARBERTON CAMPUSSodium [Moles/Vol]150 mmol/ABdbp533 - 144 mmol/LBON [facility] URBANA HOSPITALUrea nitrogen (BldV) [Mass/Vol]46 mg/dLHigh6 - 20 mg/dLBON SECSUMMA HEALTH BARBERTON CAMPUSBON [facility] UR[facility]NA HOSPITALCBC with Auto Differentialon [id number] Eos #0.05[facility]PITALAbsolute Immature Granulocyte0.04[facility]PITALAbsolute Lymph #1.59[facility]ITALAbsolute Winston #0.83BON SECSUM[facility] BARBERTON CAMPUSBasophils (Bld) [#/Vol]0.06 10*3/uLBON [facility] URBANA HOSPITALBasophils/100 WBC (Bld)1 %0 - 2 %[facility] CENTEREosinophils/100 WBC (Bld)1 %1 - 4 %[facility] Hematocrit (Bld) [Volume fraction]40.8 %40.7 - 50.3 %[facility] Hemoglobin (Bld) [Mass/Vol]13.3 g/dL13.0 - 17.0 g/dLBON [facility] Immature granulocytes/100 WBC (Bld)0 %0[facility] CENTERInterpretation and review of laboratory resultsAbnormalBON [facility] URBANA HOSPITALLymphocytes/100 WBC (Bld)16 %Low24 - 43 %[facility] (RBC) [Entitic mass]28.7 pg 25.2 - 33.5 pgBON SECOURS MERCY HEALTHMCHC (RBC) [Mass/Vol]32.6 g/dL28.4 - 34.8 g/dLBON [facility] URBANA HOSPITALMCV (RBC) [Entitic vol]88.1 fL82.6 - 102.9 fLRESTON HOSPITAL CENTERMonocytes/100 WBC (Bld)9 %3 - 12 %[facility] NRBC Automated0.00.0 per 100 WBCBON [facility] URBANA HOSPITALPlatelet distribution width (Bld) [Ratio]12.5 %11.8 - 14.4 %BON [facility] URBANA HOSPITALPlatelet mean volume (Bld) [Entitic vol]10.0 fL8.1 - 13.5 fLBON SECSUMMA HEALTH BARBERTON CAMPUSPlatelets (Bld) [#/Vol]428 10*3/uLBON SECSUMMA HEALTH BARBERTON CAMPUSRBC (Bld) [#/Vol]4.63 10*6/uL 4.21 - 5.77 m/uLBON MER[facility] HEALTH URBANA HOSPITALSeg Eddlvqhvymd46 %High36 - 65 %BON [facility] URBANA HOSPITALSegs Absolute7.15BON [facility] URBANA HOSPITALWBC (Bld) [#/Vol] 9.7 10*3/uLBON [facility]IONAL HOSPITALMagnesiumon 61-49-7631Jdnhzjluh [Mass/Vol]2.4 mg/dL1.6 - 2.6 mg/dLBON [facility] BON [facility] URBANA HOSPITALPTH, Intact with Ionized Calciumon 06-51-3568Sxgwilw [Moles/Vol]1.46 mmol/LHigh1.13 - 1.33 mmol/LBON [facility] Interpretation and review of laboratory resultsAbnormalBON [facility] Pth Wxcvzr220.5 pg/oFInlc32.0 - 65.0 pg/mLBON [facility] REGIONAL HOSPITALArterial Blood Gas, POCon 70-41-4444Xqgfr TestPositiveBON MER[facility] URBANA HOSPITALFIO240.0BON [facility] URBANA HOSPITALHCO3 (Bld) [Moles/Vol]29.3 mmol/L High21.0 - 28.0 mmol/LBON [facility] HOSPITALModePRVCBON MER[facility] URBANA HOSPITALO2 Device/Flow/%Adult VentilatorBON [facility] HEALTHOxygen saturation in Blood 98 %94.0 - 98.0 %[facility] fDJ952.2HighBON [facility] HOSPITALC pH7.392BON [facility] HOSPITALC PO298.0[facility] Positive Base Excess, Qnl0CjruSZSRESTON HOSPITAL CENTERSample SiteRight Radial ArteryRESTON HOSPITAL CENTERBasic Metabolic Panel w/ Reflex to MGon 09-06-2021 Anion gap [Moles/Vol]13 mmol/L9 - 17 mmol/LBON [facility] URBANA HOSPITALCalcium [Mass/Vol]11.0 mg/dLHigh8.6 - 10.4 mg/dLBON [facility] URBANA HOSPITALChloride [Moles/Vol]109 mmol/LHigh98 - 107 mmol/LBON [facility] URBANA HOSPITALCO2 [Moles/Vol] 25 mmol/L20 - 31 mmol/LBON [facility] UR[facility] HOSPITALCreatinine [Mass/Vol]1.78 mg/dL High0.70 - 1.20 mg/dLBON [facility] URBANA HOSPITALGFR Ofminccw82 mL/minLow>60 [facility] CENTERGFR Non- Isbskpzc48 mL/minLow>60[facility]ENTERGFR/1.73 sq M.predicted MDRD (S/P/Bld) [Vol rate/Area][facility] CENTERGlucose [Mass/Vol]121 mg/aYSfiw09 - 99 mg/dLBON [facility] Interpretation and review of laboratory resultsAbnormalRESTON HOSPITAL CENTER Potassium [Moles/Vol]4.1 mmol/L3.7 - 5.3 mmol/LBON [facility] HEALTH URBANA HOSPITALSodium [Moles/Vol]147 mmol/SJrkk693 - 144 mmol/LBON [facility] URBANA HOSPITALUrea nitrogen (BldV) [Mass/Vol]55 mg/dLHigh6 - 20 mg/dLBON [facility] HOSPITALCBC with Auto Differentialon 63-37-8832Ipklzcra Eos #0.22B[facility]OSPITALAbsolute Immature Granulocyte<0.03BON [facility]AMPUSOURS BARNESVILLE HOSPITALAbsolute Lymph #1.59BON [facility] CAMPUSOURS BARNESVILLE HOSPITALAbsolute Winston #1.20[facility] Basophils (Bld) [#/Vol]0.06 10*3/uLBON SECOURS [facility] HEALTHBasophils/100 WBC (Bld)1 %0 - 2 %[facility] HEALTHEosinophils/100 WBC (Bld)2 %1 - 4 %BON SECSUMMA HEALTH BARBERTON CAMPUSHematocrit (Bld) [Volume fraction]40.1 %Low40.7 - 50.3 %BON SEC[facility]UREG[facility] HEALTHHemoglobin (Bld) [Mass/Vol]12.8 g/dLLow13.0 - 17.0 g/dLBON SECSUMMA HEALTH BARBERTON CAMPUSImmature granulocytes/100 WBC (Bld)0 %0BON [facility]UREG[facility] HEALTHInterpretation and review of laboratory resultsAbnormalBON SECSUMMA HEALTH BARBERTON CAMPUSLymphocytes/100 WBC (Bld)16 %Low24 - 43 %BON [facility]MA HEALTHH (RBC) [Entitic mass]28.8 pg25.2 - 33.5 pgBON SECOURS SUMMA HEALTHHC (RBC) [Mass/Vol]31.9 g/dL28.4 - 34.8 g/dLBON SECSUMMA HEALTH BARBERTON CAMPUSMCV (RBC) [Entitic vol]90.1 fL82.6 - 102.9 fLBON SECMARIA ELENA [facility] HEALTHMonocytes/100 WBC (Bld)12 %3 - 12 %[facility] HEALTHNRBC Automated0.00.0 per 100 WBCBON SECBEAUREGARD MEMORIAL [facility]PITAL HEALTHPlatelet distribution width (Bld) [Ratio]12.2 %11.8 - 14.4 %BON [facility] HEALTHPlatelet mean volume (Bld) [Entitic vol]10.3 fL8.1 - 13.5 fLBON SECOURS [facility] HEALTHPlatelets (Bld) [#/Vol]357 10*3/uLBON [facility] HEALTH RBC (Bld) [#/Vol]4.45 10*6/uL4.21 - 5.77 m/uLBON [facility]UREG[facility] HEALTHSeg Raecofedesa14 %High36 - 65 %[facility] HEALTHSegs Absolute6.61B[facility] HEALTHWBC (Bld) [#/Vol]9.7 10*3/uLBON SECOURS BARNESVILLE HOSPITALBON [facility] HEALTHNo Panel Informationon [id number] and review of laboratory resultsAbnormalBON SEC[facility] HEALTHBON [facility] HEALTHPOCT Glucoseon 90-24-7817Pjlvskk [Mass/Vol]117 mg/yLQecw07 - 100 mg/dLBON [facility]CE[facility]GRE[facility]HE[facility] MON[facility]EY [facility] HOSPITALBLOOD GAS, VENOUSon 99-29-1247Yaplhqnxnlrqdqtru7.7 %0 - 5 %[facility] MONROEAvaamo VRPHSYMSP0MVBKMIQUGNH NOT PROVIDEDBON [facility] HEALTHHCO3 (Bld) [Moles/Vol]28.3 mmol/L24 - 30 mmol/LBON [facility] HEALTHInterpretation and review of laboratory resultsAbnormalBON [facility] HEALTHOxygen saturation in Blood81.8 %60.0 - 85.0 %[facility] MONROEAvaamo HEALTHpCO2, Ven52.9B[facility] MONROEAva[facility] HEALTHpH, Ven7.348B[facility] MONROEAvaamo HEALTHpO2, Ven45.9[facility] HEALTHPositive Base Excess, Ven2.2 mmol/LHigh0.0 - 2.0 mmol/LBON [facility] CENTERAvaamo HEALTHPt Temp37.0BON SECSUM[facility] BARBERTON CAMPUSBON [facility]Y HEALTHBasic Metabolic Panel w/ Reflex to MGon [id number] gap [Moles/Vol]8 mmol/LLow9 - 17 mmol/LBON [facility] HEALTHCalcium [Mass/Vol]10.7 mg/dLHigh8.6 - 10.4 mg/dLBON [facility] HEALTHChloride [Moles/Vol]109 mmol/LHigh98 - 107 mmol/L [facility] MONROEAva[facility] HEALTHCO2 [Moles/Vol]28 mmol/L20 - 31 mmol/LBON [facility] HEALTHCreatinine [Mass/Vol]1.8 mg/dLHigh0.70 - 1.20 mg/dLBON [facility] HEALTHGFR Ctxmcbdt41 mL/minLow>60[facility] HEALTHGFR Non- Dpumbhmq83 mL/minLow>60BON SEC[facility] E-Car ClubY HEALTHGFR/1.73 sq M.predicted MDRD (S/P/Bld) [Vol rate/Area][facility]CD[facility] Nano ePrint HEALTHGlucose [Mass/Vol]123 mg/dLHigh 70 - 99 mg/dLBON [facility]GRE[facility] MONRO[facility] HEALTHInterpretation and review of laboratory resultsAbnormalBON [facility]NA HOSPITALPotassium [Moles/Vol]4.0 mmol/L3.7 - 5.3 mmol/LBON SECSUMMA HEALTH BARBERTON CAMPUSSodium [Moles/Vol]145 mmol/PLgtd722 - 144 mmol/L [facility] CENTERUrea nitrogen (BldV) [Mass/Vol]49 mg/dLHigh6 - 20 mg/dL [facility] CENTERCBC with Auto Differentialon [id number] Eos #0.32BON [facility]NA HOSPITALAbsolute Immature Granulocyte<0.03B[facility] HOSPITALAbsolute Lymph #1.91[facility] URBANA HOSPITALAbsolute Winston #1.05[facility] HOSPITALBasophils (Bld) [#/Vol]0.06 10*3/uLBON [facility] URBANA HOSPITALBasophils/100 WBC (Bld)1 %0 - 2 %[facility] CENTEREosinophils/100 WBC (Bld)4 %1 - 4 %[facility] Hematocrit (Bld) [Volume fraction]38.1 %Low40.7 - 50.3 %[facility] Hemoglobin (Bld) [Mass/Vol]12.0 g/dLLow13.0 - 17.0 g/dLBON [facility] Immature granulocytes/100 WBC (Bld)0 %0[facility] CENTERInterpretation and review of laboratory resultsAbnormalRESTON HOSPITAL CENTERLymphocytes/100 WBC (Bld)24 %24 - 43 %[facility]ITALH (RBC) [Entitic mass]28.6 pg 25.2 - 33.5 pgRIVERSIDE SHORE MEMORIAL HOSPITALHC (RBC) [Mass/Vol]31.5 g/dL28.4 - 34.8 g/dLBON SUMMA HEALTHV (RBC) [Entitic vol]90.9 fL82.6 - 102.9 fLRESTON HOSPITAL CENTERMonocytes/100 WBC (Bld)13 %High3 - 12 %[facility] CENTERNRBC Automated0.00.0 per 100 WBCBON [facility] HEALTHPlatelet distribution width (Bld) [Ratio]12.5 %11.8 - 14.4 %[facility] Platelet mean volume (Bld) [Entitic vol]10.3 fL8.1 - 13.5 fLBON SECOURS MERCY HEALTHPlatelets (Bld) [#/Vol]305 10*3/uLBON [facility] HEALTHRBC (Bld) [#/Vol]4.19 10*6/uLLow4.21 - 5.77 m/uLBON [facility]RS MERCY HEALTHSeg Ilpatzleyyj37 %36 - 65 %[facility] HEALTHSegs Absolute4.65[facility] HEALTHWBC (Bld) [#/Vol]8.0 10*3/uLBON [facility] HEALTHB[facility] HEALTHCulture, Blood 1on [id number] identified Cx Nom (Unsp spec)NO GROWTH 5 DAYSBON [facility]RS [facility] HEALTHSpecimen Description.BLOODB[facility] HEALTHB[facility] HEALTHBacteria identified Cx Nom (Unsp spec)NO GROWTH 5 DAYSBON [facility]RS [facility] HEALTHSpecimen Description.BLOODB[facility]RS [facility]ERY HEALTHB[facility] HEALTHArterial Blood Gas, POCon [id number] TestPositiveBON SEC[facility] FUIIRKCVB261.0[facility] HEALTHHCO3 (Bld) [Moles/Vol]27.5 mmol/L21.0 - 28.0 mmol/LBON [facility] HEALTHOxygen saturation in Blood93 % Low94.0 - 98.0 %[facility]ENTERY [facility] wDD870.3[facility] pH7.372[facility] PO270.5LowB[facility]CY HEALTHPositive Base Excess, [id number] [facility] HEALTHSample SiteRight Radial ArteryBON [facility] HEALTHBasic Metabolic Panel w/ Reflex to MGon 80-09-1025Kmayz gap [Moles/Vol]14 mmol/L9 - 17 mmol/LBON [facility] HEALTHCalcium [Mass/Vol]10.3 mg/dL8.6 - 10.4 mg/dLBON [facility] HEALTHChloride [Moles/Vol]107 mmol/L98 - 107 mmol/LBON [facility] HEALTHCO2 [Moles/Vol]21 mmol/L20 - 31 mmol/LBON [facility] HEALTHCreatinine [Mass/Vol]1.93 mg/dLHigh0.70 - 1.20 mg/dLBON [facility]CY HEALTHGFR Diyutbcd74 mL/minLow>60[facility] GFR Non- Oqhvqtlg14 mL/minLow>60[facility] HEALTHGFR/1.73 sq M.predicted MDRD (S/P/Bld) [Vol rate/Area][facility] HEALTHGlucose [Mass/Vol]138 mg/rQZpsj50 - 99 mg/dLBON [facility] HEALTHInterpretation and review of laboratory resultsAbnormalB[facility] HEALTHPotassium [Moles/Vol]4.4 mmol/L3.7 - 5.3 mmol/LBON [facility] HEALTHSodium [Moles/Vol] 142 mmol/L135 - 144 mmol/LBON [facility] HEALTHUrea nitrogen (BldV) [Mass/Vol]38 mg/dLHigh6 - 20 mg/dLBON [facility] MERCY HEALTHB[facility] HEALTHCBC with Auto Differentialon 67-26-7023Vuadsxae Eos #0.21[facility] HEALTHAbsolute Immature Granulocyte0.03[facility] HEALTHAbsolute Lymph # 0.95LowBON [facility]RS [facility]CY HEALTHAbsolute Winston #0.90[facility] HEALTH Basophils (Bld) [#/Vol]0.05 10*3/uLBON [facility] HEALTHBasophils/100 WBC (Bld)1 %0 - 2 %[facility] HEALTHEosinophils/100 WBC (Bld)2 %1 - 4 %[facility] HEALTHHematocrit (Bld) [Volume fraction]36.9 %Low40.7 - 50.3 %[facility] HEALTHHemoglobin (Bld) [Mass/Vol]12.1 g/dLLow13.0 - 17.0 g/dLBON [facility]OS[facility]ITALImmature granulocytes/100 WBC (Bld)0 %0[facility] HEALTHInterpretation and review of laboratory resultsAbnormalB[facility] HEALTHLymphocytes/100 WBC (Bld)10 %Low24 - 43 %BON [facility] HEALTHH (RBC) [Entitic mass]30.3 pg25.2 - 33.5 pgBON SECCLEVELAND CLIN[facility] HILLCREST HOSPITALHC (RBC) [Mass/Vol]32.8 g/dL28.4 - 34.8 g/dLBON SECCLEVELAND CLINIC HILLCREST HOSPITALV (RBC) [Entitic vol]92.3 fL82.6 - 102.9 fLBON [facility] HEALTHMonocytes/100 WBC (Bld)10 %3 - 12 %[facility] HEALTHNRBC Automated0.00.0 per 100 WBCBON [facility] HEALTH URBANA HOSPITALPlatelet distribution width (Bld) [Ratio]12.5 %11.8 - 14.4 %BON [facility]BEAUREGARD [facility] HEALTHPlatelet mean volume (Bld) [Entitic vol]10.5 fL8.1 - 13.5 fLSIERRA VISTA [facility] SECBEAUREGARD MEMORIAL HOSPITAL HEALTHPlatelets (Bld) [#/Vol]403 10*3/uLBON [facility] RBC (Bld) [#/Vol]4.00 10*6/uLLow4.21 - 5.77 m/uLRESTON HOSPITAL CENTERSeg Nzyginpvhpx86 %High36 - 65 %[facility] HEALTHSegs Absolute7.03BON SECSUMMA HEALTH BARBERTON CAMPUSWBC (Bld) [#/Vol]9.2 10*3/uLBON SECKENM[facility] HEALTHCulture, Blood 1on 12-73-4815Ountgowj identified Cx Nom (Unsp spec) NO GROWTH 5 DAYSBON SECBEAUREGARD MEMORIAL [facility]OSPITAL HEALTHSpecial Ydpscwof65TT R ARMSIERRA VISTA [facility] SECBEAUREGARD MEMORIAL [facility]OSPITAL HEALTHSpecimen Description.BLOODBON SECMERCY [facility] SECBEAUREGARD MEMORIAL [facility]OSPITAL HEALTHCulture, Body Fluidon 10-77-6029Srwymmrx identified Cx Nom (Unsp spec)NO GROWTH 6 DAYSB[facility] HEALTHDirect ExamRARE NEUTROPHILSAbnormalSIERRA VISTA REG[facility]ENTER SECEVERGREENHE[facility]ROE[facility] HEALTHDirect ExamNO BACTERIA SEENBON [facility] URBANA HOSPITALDirect ExamGram stain made from cytocentrifuged specimen. Organisms and cells will be concentrated.[facility] HEALTHInterpretation and review of laboratory resultsAbnormalB[facility] HEALTHSpecimen Description.FLUID .PERICARDIAL FLUIDBON CUSTER REGIONAL HOSPITALElectrolyte Panel w/ Reflex to MGon 60-43-0461Goppd gap [Moles/Vol]11 mmol/L9 - 17 mmol/LBON [facility] URBANA HOSPITALChloride [Moles/Vol]106 mmol/L98 - 107 mmol/LBON [facility] HEALTHCO2 [Moles/Vol]26 mmol/L20 - 31 mmol/LBON [facility] UR[facility] HOSPITALPotassium [Moles/Vol] 4.3 mmol/L3.7 - 5.3 mmol/LBON [facility] URBANA HOSPITALSodium [Moles/Vol]143 mmol/L 135 - 144 mmol/LBON [facility] HOSPITALHIV Screenon 09-74-4712BLK Ag/AbNon-ReactiveNONREACTIVECJW MEDICAL CENTERMRI BRAIN WO CONTRASTon 97-31-0180HIRZ RIS CONSOLIDATEDPN [facility] Work Phone: MRI BRAIN WO CONTRASTOrdered By: Elias Francis on 13-27-4730QCW [facility] Punchd Phone: MRI CERVICAL SPINE WO CONTRASTon 15-07-9327JMNF RIS CONSOLIDATEDPN [facility] Work Phone: bON [facility] Punchd Phone: No Panel Informationon 33-86-8199Xbstfjfip Study observation (narrative)[facility] Work Phone: Interpretation and review of laboratory results AbnormalBON [facility]USTER REGIONAL HOSPITALPOCT Glucoseon 98-12-5968Brdphav [Mass/Vol]139 mg/lKLogp92 - 100 mg/dLBON [facility] XR CHEST PORTABLEon 58-24-1322TRLD RIS CONSOLIDATEDPN RIS [facility] Work Phone: XR CHEST PORTABLEOrdered By: Elias Dave on 37-76-0070YYL [facility] [employer] Work Phone: Arterial Blood Gas, POCon 06-76-4954Hkkxn TestPositive BON [facility]CEVERGRE[facility] HHNAHENTT314.0[facility] HEALTHHCO3 (Bld) [Moles/Vol] 23.9 mmol/L21.0 - 28.0 mmol/LBON [facility] HEALTHInterpretation and review of laboratory resultsAbnormalB[facility] HOSPITALNegative Base Excess, Art2 BON [facility]UREG[facility] HEALTHO2 Device/Flow/%Adult VentilatorBON SECSUMMA [facility]BERTON [facility]AMPUS Oxygen saturation in Blood92 %Low94.0 - 98.0 %[facility] pCO2 46.2BON SECSUMMA HEALTH BARBERTON CAMPUSPOC pH7.323LowBON SECOURS [facility]OSPITALC PO270.9Low [facility] SECEVERGREENHEALTH MONROEY C[facility] LUTHERAN HOSPITALSample SiteRight Radial ArteryBON [facility] Basic Metabolic Panel w/ Reflex to MGon 33-00-3247Tzbqr gap [Moles/Vol]10 mmol/L 9 - 17 mmol/LBON [facility] HEALTHCalcium [Mass/Vol]10.1 mg/dL8.6 - 10.4 mg/dLB[facility] HEALTHChloride [Moles/Vol]109 mmol/LHigh98 - 107 mmol/L [facility] HEALTHCO2 [Moles/Vol]21 mmol/L20 - 31 mmol/LBON [facility] HEALTHCreatinine [Mass/Vol]1.99 mg/dLHigh0.70 - 1.20 mg/dLB[facility]CY HEALTHGFR Pcepnyoy04 mL/minLow>60[facility] HEALTHGFR Non- Bzxjxvpf87 mL/minLow>60[facility] HEALTHGFR/1.73 sq M.predicted MDRD (S/P/Bld) [Vol rate/Area]BON SECEVERGREENHEALTH MONRO[facility] HEALTHGlucose [Mass/Vol]83 mg/dL70 - 99 mg/dLB[facility] HEALTHInterpretation and review of laboratory results AbnormalB[facility] HEALTHPotassium [Moles/Vol]4.4 mmol/L3.7 - 5.3 mmol/L [facility] HEALTHSodium [Moles/Vol]140 mmol/L135 - 144 mmol/LBON [facility] HEALTHUrea nitrogen (BldV) [Mass/Vol]36 mg/dLHigh6 - 20 mg/dLBON SECBEAUREGARD [facility] HEALTHBON SECBEAUREGARD [facility] HEALTHCBC with Auto Differentialon 09-03-2021 Absolute Eos #0.29B[facility] HOSPITALAbsolute Immature Granulocyte0.03[facility] HOSPITALAbsolute Lymph #1.71[facility] HOSPITALAbsolute Winston # 0.99[facility]OSPITALBasophils (Bld) [#/Vol]0.04 10*3/uLBON [facility] HEALTHBasophils/100 WBC (Bld)1 %0 - 2 %[facility] SECSUMMA HEALTH BARBERTON CAMPUSEosinophils/100 WBC (Bld)3 %1 - 4 %[facility] CENTERHematocrit (Bld) [Volume fraction] 39.7 %Low40.7 - 50.3 %[facility]ITAL CENTERHemoglobin (Bld) [Mass/Vol]12.2 g/dLLow13.0 - 17.0 g/dLBON [facility] UR[facility] HOSPITALImmature granulocytes/100 WBC (Bld)0 %0BON [facility] UR[facility] HOSPITALInterpretation and review of laboratory results AbnormalBON [facility] HEALTH URBANA HOSPITALLymphocytes/100 WBC (Bld)19 %Low24 - 43 %[facility]OSPITALH (RBC) [Entitic mass]29.2 pg25.2 - 33.5 pgRIVERSIDE SHORE MEMORIAL HOSPITALHC (RBC) [Mass/Vol]30.7 g/dL28.4 - 34.8 g/dLBON SUMMA HEALTHV (RBC) [Entitic vol]95.0 fL82.6 - 102.9 fLRESTON HOSPITAL CENTER Monocytes/100 WBC (Bld)11 %3 - 12 %[facility]PITAL CENTERNRBC Automated0.00.0 per 100 WBCBON SECSUMMA HEALTH BARBERTON CAMPUSPlatelet distribution width (Bld) [Ratio]13.2 %11.8 - 14.4 %BON SECBEAUREGARD MEMORIAL [facility] HEALTHPlatelet mean volume (Bld) [Entitic vol] 10.6 fL8.1 - 13.5 fLSIERRA VISTA REG[facility] SECBEAUREGARD MEMORIAL [facility]OSPITAL HEALTHPlatelets (Bld) [#/Vol]244 10*3/uL [facility] SECSUMMA HEALTH BARBERTON CAMPUSRBC (Bld) [#/Vol]4.18 10*6/uLLow4.21 - 5.77 m/uLRESTON HOSPITAL CENTERSeg Eipibezyjim48 %High36 - 65 %[facility] CENTERSegs Absolute5.81BON [facility] URBANA HOSPITALWBC ([facility]) [#/Vol]8.9 10*3/uLBON [facility] HOSPITALElectrophoresis Protein, Serumon 09-03-2021 Albumin %53 %45 - 65 %[facility] CENTERAlbumin [Mass/Vol]3.1 g/dLLow3.2 - 5.2 g/dLBON [facility] HEALTHAlpha 1 %7 %High3 - 6 %[facility] Alpha 2 %13 %6 - 13 %[facility] CENTERAlpha-1-Globulin0.4 g/dL0.1 - 0.4 g/dLBON [facility] URBANA HOSPITALCETSASAnran-1-Scgwcuza7.8 g/dL0.5 - 0.9 g/dLBSPOTSYLVANIA REGIONAL MEDICAL CENTERBeta Globulin0.9 g/dL0.5 - 1.1 g/dLBON [facility] HEALTHBeta Bvacftv91 %11 - 19 %[facility] CENTERFree PSA/Total PSA [Mass fraction] 5.8 g/dLLow6.4 - 8.3 g/dLBSPOTSYLVANIA REGIONAL MEDICAL CENTERGamma Globulin0.7 g/dL0.5 - 1.5 g/dLBON [facility] URBANA HOSPITALGamma Globulin %11 %9 - 20 %[facility] Interpretation and review of laboratory resultsAbnormalRESTON HOSPITAL CENTER Pathologist Cyto stain Nom (Cvx/Vag) [ID]ELECTRONICALLY SIGNED. ZOE STERN M.D.[facility] CENTERProtein Electrophoresis, SerumALBUMIN IS DECREASED. MAY BE OBSERVED WITH HEPATIC DISEASE, PROTEINURIA, MALNUTRITION, ACUTE PHASE RESPONSE, AND HEMODILUTION.[facility]OSPITAL CENTERTotal Prot. Sum 5.9 g/dLLow6.3 - 8.2 g/dLBON [facility] URBANA HOSPITALTotal Prot. Sum,%100 %98 - 102 %[facility] MEDICAL CENTERImmunofixation serum profileon 46-85-7135Oijhaqxrbnl Cyto stain Nom (Cvx/Vag) [ID]ELECTRONICALLY SIGNED. ZOE STERN M.D.[facility] Centerum IFX InterpIMMUNOFIXATION IS NEGATIVE FOR MONOCLONAL IMMUNOGLOBULIN.[facility]AL HOSPITALLipaseon 30-41-7214Ubbeps [Catalytic activity/Vol]23 U/L13 - 60 U/L [facility]ICAL CENTERNo Panel Informationon 40-57-5146SFU [facility] HOSPITALPOCT Glucoseon 32-11-7988Lfzgdwy [Mass/Vol]79 mg/dL74 - 100 mg/dLBON [facility] URBANA HOSPITALANA SCREEN WITH REFLEXon 09-02-2021 Anti ds DNA1.2<10.0 IU/mLRESTON HOSPITAL CENTERENA Antibodies Screen0.1 U/mL <0.7BON [facility] HOSPITALNuclear Ab IF (S) [Titer]NegativeNEGATIVEBON [facility] URBANA HOSPITALANTI-NEUTROPHIL ANTIBODYon 60-85-3176Nckzspnmtz Ab, FlowNegative NegativeCJW MEDICAL CENTERAnti-Neutrophilic Cytoplasmic Antibodyon 44-50-3279WMOG Myeloperoxidase<0.30.0 - 3.5 AU/mLRESTON HOSPITAL CENTERANCA Proteinase 30.9 AU/mL0.0 - 2.0 AU/mLRESTON HOSPITAL CENTERArterial Blood Gas, POCon 42-71-3099Yhfau TestPositiveRESTON HOSPITAL CENTERFIO230.0REST[facility] HOSPITAL CENTERHCO3 (Bld) [Moles/Vol]21.7 mmol/L21.0 - 28.0 mmol/LBON [facility] HOSPITALInterpretation and review of laboratory resultsAbnormalBON [facility] HOSPITALModePRVCBON [facility]OS[facility]ITALNegative Base Excess, Yrc2GcohKXRRESTON HOSPITAL CENTERO2 Device/Flow/%Adult VentilatorRESTON HOSPITAL CENTEROxygen saturation in Blood93 %Low94.0 - 98.0 %[facility] oSR258.6HighBON [facility] pCO2 Hwye00gu HgB[facility] pH7.258LowB[facility] pH Temp7.25[facility] PO276.2LowBON SECTHE UNIVERSITY [facility]OL[facility]ICAL CENTERC pO2 Siyv26ie HgBON [facility] URBANA HOSPITALPt Temp37.9BON SECSUMMA HEALTH BARBERTON CAMPUSSample SiteRight Radial ArteryBON [facility] URBANA HOSPITALBasic Metabolic Panel w/ Reflex to MGon 09-02-2021 Anion gap [Moles/Vol]9 mmol/L9 - 17 mmol/LBON [facility] URBANA HOSPITALCalcium [Mass/Vol]10.0 mg/dL8.6 - 10.4 mg/dLBON [facility] URBANA HOSPITALChloride [Moles/Vol] 110 mmol/LHigh98 - 107 mmol/LBON [facility] URBANA HOSPITALCO2 [Moles/Vol]20 mmol/L20 - 31 mmol/LBON [facility] UR[facility] HOSPITALCreatinine [Mass/Vol]1.86 mg/dLHigh0.70 - 1.20 mg/dLBON [facility] URBANA HOSPITALGFR Ecztkhsf18 mL/minLow>60BON [facility] UR[facility]NA HOSPITALGFR Non- Ehxydjuk04 mL/minLow>60[facility] GFR/1.73 sq M.predicted MDRD (S/P/Bld) [Vol rate/Area][facility] Glucose [Mass/Vol]84 mg/dL70 - 99 mg/dLBON [facility] URBANA HOSPITALPotassium [Moles/Vol]4.7 mmol/L3.7 - 5.3 mmol/LBON [facility] URBANA HOSPITALSodium [Moles/Vol] 139 mmol/L135 - 144 mmol/LBON [facility] URBANA HOSPITALUrea nitrogen (BldV) [Mass/Vol]31 mg/dLHigh6 - 20 mg/dLBON [facility] URBANA HOSPITALC3 Complementon 99-22-4286Xpzczcgjcq C3183 mg/bXWeff62 - 180 mg/dLBON [facility] Interpretation and review of laboratory resultsAbnormalBON [facility] C4 Complementon 41-45-6234Hvvbkplliw C429 mg/dL10 - 40 mg/dLBON [facility] URBANA HOSPITALCBC with Auto Differentialon 30-97-3267Bzaxbdqr Eos #0.34BON [facility] UR[facility]NA HOSPITALAbsolute Immature Granulocyte0.05BON SECSUMMA HEALTH BARBERTON CAMPUSAbsolute Lymph # 2.08[facility] HEALTHAbsolute Winston #1.34HighBON [facility]BEAUREG[facility] HEALTH Basophils (Bld) [#/Vol]0.04 10*3/uLBON SECMARIA ELENA [facility] HEALTHBasophils/100 WBC (Bld)0 %0 - 2 %BON SECMARIA ELENA BARNESVILLE HOSPITALEosinophils/100 WBC (Bld)3 %1 - 4 %BON [facility] URBANA HOSPITALHematocrit (Bld) [Volume fraction]38.7 %Low40.7 - 50.3 %BON [facility] URBANA HOSPITALHemoglobin (Bld) [Mass/Vol]11.5 g/dLLow13.0 - 17.0 g/dLBON SECSUMMA HEALTH BARBERTON CAMPUSImmature granulocytes/100 WBC (Bld)1 %Gbzt3XZH [facility] HOSPITALInterpretation and review of laboratory resultsAbnormalBON SECSUMMA HEALTH BARBERTON CAMPUSLymphocytes/100 WBC (Bld)19 %Low24 - 43 %[facility]OSPITALH (RBC) [Entitic mass]28.7 pg25.2 - 33.5 pgBON SECCLEVELAND CLINIC HILLCREST HOSPITALHC (RBC) [Mass/Vol]29.7 g/dL28.4 - 34.8 g/dLBON SECCLEVELAND CLINIC HILLCREST HOSPITALV (RBC) [Entitic vol]96.5 fL82.6 - 102.9 fLBON [facility] URBANA HOSPITALMonocytes/100 WBC (Bld)12 %3 - 12 %DAVION [facility] HOSPITALNRBC Automated0.00.0 per 100 WBCSIERRA VISTA REGIONAL [facility]ENTER SECSUMMA HEALTH BARBERTON CAMPUSPlatelet distribution width (Bld) [Ratio]13.5 %11.8 - 14.4 %BON SECBEAUREGARD [facility] HEALTHPlatelet mean volume (Bld) [Entitic vol]10.7 fL8.1 - 13.5 fLBON [facility]BEAUREGARD [facility]OR[facility] HEALTHPlatelets (Bld) [#/Vol]228 10*3/uLBON [facility] HEALTH RBC (Bld) [#/Vol]4.01 10*6/uLLow4.21 - 5.77 m/uLBON SECSUMMA HEALTH BARBERTON CAMPUSSeg Uhgvrgjydcm21 %36 - 65 %[facility] HEALTHSegs Absolute7.14BON [facility] HOSPITALWBC (Bld) [#/Vol]11.0 10*3/uLBON SECDEPARTMENT OF VETERANS AFFAIRS TOMAH [facility]ER[facility]' AFF[facility]IRS MEDICAL CENTERCreatinine, Random Urineon 36-54-4281Kkxapiwspb, Ur129.7 mg/dL39.0 - 259.0 mg/dLBON [facility] URBANA HOSPITALCulture, Respiratoryon 51-98-9328Gqdscxts identified Cx Nom (Unsp spec)METHICILLIN RESISTANT STAPHYLOCOCCUS AUREUS HEAVY GROWTHAbnormalBON [facility] URBANA HOSPITALBacteria identified Cx Nom (Unsp spec) NORMAL RESPIRATORY JAMES LIGHT GROWTHBON [facility] UR[facility] HOSPITALDirect Exam>10, <25 NEUTROPHILS/LPFBON [facility]ALTH URBANA HOSPITALDirect Exam< 10 EPITHELIAL CELLS/LPFBON [facility] URBANA HOSPITALDirect ExamPositiveAbnormalRESTON HOSPITAL CENTERDirect ExamMIXED BACTERIAL MORPHOTYPES ALSO PRESENT ON GRAM STAIN.AbnormalBON [facility] URBANA HOSPITALInterpretation and review of laboratory resultsAbnormalRESTON HOSPITAL CENTERSpecimen Description.ENDOTRACHEALBON SECDEPARTMENT OF VETERANS AFFAIRS TOMAH VETERANS' AFFAIRS MEDICAL CENTEREosinophils, Urineon 26-36-0586Nnawpzugls, UrNONE SEENNONE SEENBON [facility] REGIONAL HOSPITALHepatitis Panel, Acuteon 09-02-2021 HAV IgM IA Qn (S)Non-ReactiveNONREACTIVENorton Community Hospital B Core Ab, IgMNon-ReactiveNONREACTIVERESTON HOSPITAL CENTERHepatitis B Surface Ag Non-ReactiveNONREACTIVERESTON HOSPITAL CENTERHepatitis C AbNon-Reactive NONREACTIVEBON CUSTER REGIONAL HOSPITALKappa/Lambda Quantitative Free Light Chains, Serumon 12-07-0279Npra Point Comfort/Lambda Ratio0.77RESTON HOSPITAL CENTERInterpretation and review of laboratory resultsAbnormalRESTON HOSPITAL CENTERKappa Free Light Chains QNT5.26 mg/dLHigh0.37 - 1.94 mg/dL REST[facility]PITAL CENTERLambda Free Light Chains QNT6.82 mg/dLHigh0.57 - 2.63 mg/dLBON [facility]OSPITALNo Panel Informationon 94-61-6277VWC [facility] HOSPITALRadiology Study observation (narrative)[facility] Work Phone: bON [facility] HOSPITALInterpretation and review of laboratory resultsAbnormalFLANDREAU MEDICAL [facility]ENTER / [facility]ALTHC Glucose Fingerstickon 09-02-2021 Glucose [Mass/Vol]87 mg/dL75 - 110 mg/dLBON [facility]UST[facility] REGIONAL HOSPITALGlucose [Mass/Vol]89 mg/dL75 - 110 mg/dLBON [facility]AL HOSPITALPOCT Glucoseon 15-70-5283Etsldrk [Mass/Vol]80 mg/dL74 - 100 mg/dLBON [facility] URBANA HOSPITALPTH, Intacton 91-16-8726Zubxvwosvbzheh and review of laboratory resultsAbnormSentara Williamsburg Regional Medical CenterPth Ewmwxf284.2 pg/mLHigh 15.0 - 65.0 pg/mLBON [facility]USTER REGIONAL HOSPITALPhosphoruson 41-32-4419Suiinehms [Mass/Vol]3.2 mg/dL2.5 - 4.5 mg/dLBON [facility] Protein, urine, randomon 25-77-1940Gwjploj (U) [Mass/Vol]97 mg/dLBON [facility] URBANA HOSPITALRheumatoid Factoron 05-29-2927Xruhjoyutd Factor<10<14 IU/mLCJW MEDICAL CENTERTriglycerideon 09-02-2021 Triglyceride [Mass/Vol]202 mg/dLHigh<150BON [facility] HOSPITALVancomycin Level, Randomon 78-18-3401Ujotmpwquh Rm18.3 ug/mLCJW MEDICAL CENTERVitamin D 25 Hydroxyon 22-75-2318Lhxfqfqqfeljtq and review of laboratory resultsAbnormSentara Williamsburg Regional Medical CenterVit D, 25-Hydroxy9.5 ng/mL Low>29.9BON [facility] HOSPITALXR ABDOMEN FOR NG/OG/NE TUBE PLACEMENTon 10-07-7263IITZ RIS CONSOLIDATEDMHPN RIS CONSOLIDATEDRESTON HOSPITAL CENTER Work Phone: XR ABDOMEN FOR NG/OG/NE TUBE PLACEMENTOrdered By: Farhan Gaines on 20-98-0085RNN SECYo[employer] HEALTH Work Phone: XR CHEST PORTABLEon 53-66-3515QXXV RIS CONSOLIDATED MHPN RIS CONSOLIDATEDBON SECHealth Impact Solutions [facility] HEALTH Work Phone: bON SECYo[employer] [facility] Work Phone: aLDOSTERONEon 49-59-0499Vshbrytacnw6.3 ng/dLBON SECBEAUREGARD MEMORIAL [facility]OSPITAL HEALTHBON SECSUMMA HEALTH BARBERTON CAMPUSArterial Blood Gas, POCon 09-01-2021 Dwight TestNOT APPLICABLEBON SECBEAUREGARD MEMORIAL HOSPITAL DTGJHKIGN004.0BON SECHealth Impact Solutions [facility] HCO3 (Bld) [Moles/Vol]19.9 mmol/LLow21.0 - 28.0 mmol/LBON [facility]AMPUSHealth Impact Solutions [facility]ENTERAvaamo HEALTH Interpretation and review of laboratory resultsAbnormalBON SECHealth Impact Solutions [facility] CENTERAvaamo HEALTH ModePRVCBON SECSUMMA HEALTH BARBERTON CAMPUSNegative Base Excess, Svd9JswlWQT SECHealth Impact Solutions [facility] CENTERAvaamo [facility]OSPITALO2 Device/Flow/%Adult VentilatorBON SECSUMMA HEALTH BARBERTON CAMPUSOxygen saturation in Blood97 %94.0 - 98.0 %BON SECEVERGREENHEALTH MONROEAvaamo [facility] CENTERC sYJ284.2LowBON SECEVERGREENHEALTH MONROEAvaamo [facility]OSPITALPOC pH7.373BON SECEVERGREENHEALTH MONROEAvaamo [facility] HOSPITALPOC PO289.0BON SECYoink Games [facility] HOSPITALSample SiteArterial LineBON UKIAH VALLEY MEDICAL CENTERAvaamo [facility] HOSPITALBasic Metabolic Panel w/ Reflex to MGon 12-30-8278Zogua gap [Moles/Vol]10 mmol/L9 - 17 mmol/LBON SECYo[employer] HEALTHCalcium [Mass/Vol]9.3 mg/dL8.6 - 10.4 mg/dLBON SECHealth Impact Solutions [facility] HEALTH Chloride [Moles/Vol]111 mmol/LHigh98 - 107 mmol/LBON [employer] HEALTHCO2 [Moles/Vol]19 mmol/LLow20 - 31 mmol/LBON [employer] HEALTHCreatinine [Mass/Vol]1.71 mg/dLHigh0.70 - 1.20 mg/dLBON [employer]Yo[employer] HEALTHGFR Voefzhwb78 mL/minLow>60BON [employer] HEALTHGFR Non- Smylzvlu50 mL/min Low>60[facility] [employer] HEALTHGFR/1.73 sq M.predicted MDRD (S/P/Bld) [Vol rate/Area][facility] HEALTHGlucose [Mass/Vol]102 mg/pJMrmm57 - 99 mg/dL [facility] HEALTHPotassium [Moles/Vol]4.2 mmol/L3.7 - 5.3 mmol/LBON [facility] HEALTHSodium [Moles/Vol]140 mmol/L135 - 144 mmol/LBON SECOU[facility] HEALTHUrea nitrogen (BldV) [Mass/Vol]22 mg/dLHigh6 - 20 mg/dLBON SECOURS [facility]ITALCBC with Auto Differentialon [id number] Eos #0.22[facility] HOSPITALAbsolute Immature Granulocyte<0.03[facility] HEALTHAbsolute Lymph #1.65[facility] HEALTHAbsolute Winston #0.85[facility] HEALTH Basophils (Bld) [#/Vol]0.03 10*3/uLBON SECOURS [facility] HEALTHBasophils/100 WBC (Bld)0 %0 - 2 %[facility]ITALEosinophils/100 WBC (Bld)2 %1 - 4 %[facility]OSPITALHematocrit (Bld) [Volume fraction]33.8 %Low40.7 - 50.3 %[facility]OSPITALHemoglobin (Bld) [Mass/Vol]10.9 g/dLLow13.0 - 17.0 g/dLBON SECOURS [facility]VILLE HOSPITALImmature granulocytes/100 WBC (Bld)0 %0[facility] HOSPITALInterpretation and review of laboratory resultsAbnormalBON SECOURS [facility]VILLE HOSPITALLymphocytes/100 WBC (Bld)18 %Low24 - 43 %[facility]CCLEVEL[facility] HOSPITALH (RBC) [Entitic mass]28.6 pg25.2 - 33.5 pgBON SECOURS [facility] HEALTHHC (RBC) [Mass/Vol]32.2 g/dL28.4 - 34.8 g/dLBON SEC[facility]RS [facility] HEALTHV (RBC) [Entitic vol]88.7 fL82.6 - 102.9 fLBON SECOURS [facility] HEALTHMonocytes/100 WBC (Bld)9 %3 - 12 %[facility] [employer] HEALTHNRBC Automated0.00.0 per 100 WBCBON SECOURS [facility] HEALTHPlatelet distribution width (Bld) [Ratio]13.5 %11.8 - 14.4 %[facility] HEALTHPlatelet mean volume (Bld) [Entitic vol]10.8 fL8.1 - 13.5 fLBON SECOURS [facility]CY HEALTHPlatelets (Bld) [#/Vol]212 10*3/uLBON SECMARIA ELENA [employer] ClubJed HEALTH RBC (Bld) [#/Vol]3.81 10*6/uLLow4.21 - 5.77 m/uLBON SECMARIA ELENA [facility]CY HEALTHSeg Uweimmvitje35 %High36 - 65 %[facility] HEALTHSegs Absolute6.63[facility] TONEY HEALTHWBC (Bld) [#/Vol]9.4 10*3/uLBON SECOURS [facility] HEALTHBON SECMARIA ELENA [employer] ClubY HEALTHEKG 12 LeadOrdered By: Kathy Shah on [id number] Yude483UGY BON SECBeijing Buding [facility] TechnologyY HEALTH Work Phone: p-R Znetrorm908 msBON SECBe[facility] [employer] HEALTH Work Phone: Q-T Mkplryxl135 msBON SECBe[facility] [employer] HEALTH Work Phone: QRS Ngrnunql49 msBON SECOURS [employer] HEALTH Work Phone: QTc Calculation (Bazett)471 msBON SECOURS [employer] HEALTH Work Phone: r [id number] SECBeijing Buding [facility] TechnologyY HEALTH Work Phone: T Pemberton-24degreesBON SEC[facility] [employer] HEALTH Work Phone: Ventricular [id number] SECBeijing Buding [employer] HEALTH Work Phone: bON [employer] HEALTH Work Phone: eKG 12 Leadon [id number] STV MUSEBON SECYo[employer] HEALTH Work Phone: METANEPHRINES PLASMA FREEon [id number] and review of laboratory resultsAbnormalBON SECOURS [employer] HEALTHMetaneph/Plasma InterpSee NoteBON SECBeijing Buding Fang[employer] Science and TechnologyAvaamo [facility] HOSPITALMetanephrine0.18 nmol/L0.00 - 0.49 nmol/L [facility] HOSPITALNormetanephrine0.92 nmol/LHigh0.00 - 0.89 nmol/LBON SECDEPARTMENT OF VETERANS AFFAIRS TOMAH [facility]IRS MEDICAL CENTERMRI ABDOMEN WO CONTRASTon 09-01-2021 MHPN RIS CONSOLIDATEDMHPN RIS CONSOLIDATEDBON SECHealth Impact Solutions [facility] Work Phone: radiology Study observation (narrative)[facility]TRAL CAMPUSCompuTEK Industries, LLC. Work Phone: MRI ABDOMEN WO CONTRASTOrdered By: Ariel Ortiz on 67-77-8090SYX [facility] CAMPUSHealth Impact Solutions [facility] CENTERPopdust Work Phone: Mycoplasma pneumoniae antibody, IgMon 09-01-2021 Mycoplasma pneumo IgM0.33<0.91B[facility]ITALNo Panel Informationon 96-29-7222[facility] CareToSaveInterpretation and review of laboratory resultsAbnormalCJW MEDICAL CENTER BON [facility]LEY MEDICAL CENTERAvaamo [facility] HOSPITALPOCT Glucoseon 08-30-1308Ybffaew [Mass/Vol]91 mg/dL74 - 100 mg/dLBON UKIA[facility] VALLEY MEDICAL CENTERPopdustRENINon 59-03-1922Xqojb Zpghgeub2pm/mL/hrCHARLES RIVER HOSPITALHealth Impact Solutions UC MEDICAL CENTERAvaamo [facility] LUTHERAN HOSPITALRenin Activity6.3ng/mL/hrCHARLES RIVER HOSPITALHealth Impact Solutions [facility] Triglycerideon 14-95-4002Lxirulwhtbks [Mass/Vol]178 mg/dLHigh<150BON [facility]NA HOSPITALVancomycin Level, Randomon 91-08-8574Iuswueievv Rm17.8 ug/mLBON CUSTER REGIONAL HOSPITALArterial Blood Gas, POCon 08-31-2021 Dwight TestNOT APPLICABLEBON UKIAH VALLEY MEDICAL CENTERAvaamo VHUITDKYQ481.0[facility] HCO3 (Bld) [Moles/Vol]22.1 mmol/L21.0 - 28.0 mmol/LBON ABRAZO CENTRAL CAMPUSHealth Impact Solutions [facility] Interpretation and review of laboratory resultsAbnormSentara Williamsburg Regional Medical Center ModePRVCBON MER[facility] HEALTH URBANA HOSPITALNegative Base Excess, Imh2COW [facility]ENTERREGENCY HOS[facility]ITAL TOLEDOO2 Device/Flow/%Adult VentilatorBON MERCY HEALTH URBANA HOSPITALOxygen saturation in Blood92 %Low94.0 - 98.0 %BON [facility]OSPITALC tUR525.3BON SECTHE UNIVERSITY OF TOLEDO MEDICAL CENTERC pH7.392BON GAL[facility] COMMUNITY HOSPITALC PO265.3LowBON MERCY HEALTH URBANA HOSPITALSample SiteArterial LineBON MER[facility] URBANA HOSPITALBasic Metabolic Panel w/ Reflex to MGon 09-77-5678Zgtwm gap [Moles/Vol]10 mmol/L9 - 17 mmol/LBON [facility] URBANA HOSPITALCalcium [Mass/Vol]9.0 mg/dL8.6 - 10.4 mg/dLBON [facility] Chloride [Moles/Vol]110 mmol/LHigh98 - 107 mmol/LBON MERCY HEALTH URBANA HOSPITALCO2 [Moles/Vol]20 mmol/L20 - 31 mmol/LBON [facility] URBANA HOSPITALCreatinine [Mass/Vol] 1.77 mg/dLHigh0.70 - 1.20 mg/dLBON MER[facility] URBANA HOSPITALGFR Efbogkrf70 mL/minLow>60BON [facility] UR[facility] HOSPITALGFR Non- Rgyiacjg04 mL/minLow>60BON [facility] UR[facility]NA HOSPITALGFR/1.73 sq M.predicted MDRD (S/P/Bld) [Vol rate/Area][facility]ITAL CENTERGlucose [Mass/Vol]91 mg/dL70 - 99 mg/dLBON MER[facility] URBANA HOSPITALInterpretation and review of laboratory resultsAbnormalBON MER[facility] URBANA HOSPITALPotassium [Moles/Vol]3.9 mmol/L3.7 - 5.3 mmol/LBON [facility]ITAL Sodium [Moles/Vol]140 mmol/L135 - 144 mmol/LBON MER[facility] HEALTH URBANA HOSPITALUrea nitrogen (BldV) [Mass/Vol]21 mg/dLHigh6 - 20 mg/dLBON SECDEPART[facility] OF VETERANS AFF[facility]IRS TOMAH VETERANS' AFFAIRS MEDICAL CENTERCBC with Auto Differentialon 39-22-4225Khaghvmb Eos #0.14BON [facility] UR[facility] HOSPITALAbsolute Immature Granulocyte0.04[facility] Absolute Lymph #1.91BON [facility] URBANA HOSPITALAbsolute Winston #1.10BON [facility] UR[facility] HOSPITALBasophils (Bld) [#/Vol]0.04 10*3/uLBON [facility] HEALTHBasophils/100 WBC (Bld)0 %0 - 2 %[facility] HEALTHEosinophils/100 WBC (Bld)1 %1 - 4 % BON SECBEAUREGARD [facility] HEALTHHematocrit (Bld) [Volume fraction]33.8 %Low40.7 - 50.3 % BON SECSUMMA HEALTH BARBERTON CAMPUSHemoglobin (Bld) [Mass/Vol]11.0 g/dLLow13.0 - 17.0 g/dL BON [facility]RS [facility]OSPITALImmature granulocytes/100 WBC (Bld)0 %0BON SECBEAUREGARD MEMORIAL [facility]PITAL HEALTHInterpretation and review of laboratory resultsAbnormalBON SECSUMMA HEALTH BARBERTON CAMPUSLymphocytes/100 WBC (Bld)16 %Low24 - 43 %BON SUMMA HEALTHH (RBC) [Entitic mass]28.7 pg25.2 - 33.5 pgBON SECCLEVELAND CLINIC HILLCREST HOSPITALHC (RBC) [Mass/Vol]32.5 g/dL28.4 - 34.8 g/dLBON SECCLEVELAND CLINIC HILLCREST HOSPITALV (RBC) [Entitic vol]88.3 fL82.6 - 102.9 fLSIERRA VISTA REGIONAL [facility]ENTER [facility] HEALTHMonocytes/100 WBC (Bld)9 %3 - 12 %DAVION SECBEAUREGARD MEMORIAL HOSPITAL HEALTHNRBC Automated0.00.0 per 100 WBCBON SECBEAUREGARD MEMORIAL HOSPITAL HEALTHPlatelet distribution width (Bld) [Ratio]13.5 %11.8 - 14.4 %BON SECBEAUREGARD MEMORIAL [facility]ITAL HEALTHPlatelet mean volume (Bld) [Entitic vol]10.6 fL8.1 - 13.5 fLBON SECOU[facility] HEALTHPlatelets (Bld) [#/Vol]195 10*3/uLBON [facility] HEALTH RBC (Bld) [#/Vol]3.83 10*6/uLLow4.21 - 5.77 m/uLBON [facility] HEALTHSeg Xqibsjemjrq38 %High36 - 65 %[facility] HEALTHSegs Absolute8.64HighBON [facility] HEALTHWBC (Bld) [#/Vol]11.9 10*3/uLHighBON [facility] HEALTHBON SECBEAUREGARD MEMORIAL [facility]PITAL HEALTHCulture, Blood 1on 25-22-4399Bkveqrrn identified Cx Nom (Unsp spec)PositiveAbnormSentara Williamsburg Regional Medical CenterBacteria identified Cx Nom (Unsp spec)DIRECT GRAM STAIN FROM BOTTLE: GRAM POSITIVE COCCI IN [facility]ERSIDE HEALTH SYSTEMBacteria identified Cx Nom (Unsp spec)Detected: Streptococcus species (not S. agalactiae (Group B), S. pneumoniae, or S. pyogenes (Group A)) Culture Results to Follow Methodology- Polymerase Chain Reaction (PCR)[facility]PITAL CENTERBacteria identified Cx Nom (Unsp spec) STREPTOCOCCI, BETA HEMOLYTIC GROUP CAbnormSentara Williamsburg Regional Medical CenterBacteria identified Cx Nom (Unsp spec)(NOTE) Direct Gram Stain from bottle and Polymerase Chain Reaction (PCR) results called to and readback by: BAUTISTA Greenfield at 0425 on 08/31/21REST[facility]OSPITAL CENTERInterpretation and review of laboratory results Hospital Corporation of AmericaSpecial Wmaogspj05CL R WRISTRESTON HOSPITAL CENTERSpecimen Description.BLOODCJW MEDICAL [facility]ENTER EKG 12 Leadon 63-68-0206Fxagkk Qqhy494SPSUJCCHESAPEAKE REGIONAL MEDICAL CENTER Work Phone: p Xnml86zaxbyehQEBWinchester Medical Center Work Phone: p-R [id number] [facility] Work Phone: Q-T [id number] [facility] Work Phone: QRS Qfhhjdxo88 [facility] Work Phone: QTc Calculation (Bazett)463 [facility] Work Phone: r Vxnj27hpfdtufQHUCJW Medical Center Work Phone: T Zdnj854vfvarwdQHDWinchester Medical Center Work Phone: Ventricular Eiiy767MUQMGRSENTARA RMH MEDICAL [facility]ENTER CareToSave Work Phone: MHPN [facility] CareToSave Work Phone: bST[facility]ESPR[facility] CareToSave Work Phone: No Panel Informationon 17-96-0600LLC AB[facility] CENTRAL CAMPUSHealth Impact Solutions [facility]ITALC Glucose Fingerstickon 15-29-9078Sllngpm [Mass/Vol]76 mg/dL75 - 110 mg/dLBON CUSTER REGIONAL HOSPITALPOCT Glucoseon 08-31-2021 Glucose [Mass/Vol]81 mg/dL74 - 100 mg/dLBON MER[facility] URBANA HOSPITALXR CHEST PORTABLEon 59-45-4010NLDP RIS CONSOLIDATEDMHPN RIS CONSOLIDATEDRESTON HOSPITAL CENTER Work Phone: radiology Study observation (narrative)[facility] [employer] CareToSave Work Phone: xr CHEST PORTABLEOrdered By: Usha Ojeda on 28-43-5731SQMNAVAL MEDICAL CENTER [facility] CareToSave Work Phone: Hepatic Function Panelon 39-03-3281Efziqfk [Mass/Vol]3 g/dLLow3.5 - 5.2 g/dLBON MER[facility] URBANA HOSPITALAlbumin/Globulin [Mass ratio]1.0 {ratio}RESTON HOSPITAL CENTERALP (Bld) [Catalytic activity/Vol]62 U/L40 - 129 U/LBON [facility] URBANA HOSPITALALT [Catalytic activity/Vol]13 U/L5 - 41 U/LBON [facility] URBANA HOSPITALAST [Catalytic activity/Vol]20 U/L<40BON [facility] URBANA HOSPITALBilirubin [Mass/Vol]0.95 mg/dL0.3 - 1.2 mg/dLBON [facility] Bilirubin, Indirect0.79 mg/dL0.00 - 1.00 mg/dLBON [facility] Bilirubin.indirect [Mass/Vol]0.16 mg/dL<0.31BON [facility] CAMPUSHealth Impact Solutions [facility]ITALFree PSA/Total PSA [Mass fraction]5.9 g/dLLow6.4 - 8.3 g/dLBON [facility] Interpretation and review of laboratory resultsAbnormCarilion Clinic St. [facility] DNA Probe, Nasalon 25-69-9928Lyyukhvotdaoga and review of laboratory resultsAbnormalBON SECOURS MERCY HEALTHMRSA, DNA, Nasal POSITIVE: MRSA DNA detected by nucleic acid amplification.AbnormalNEGATIVEBON MER[facility]ALTH URBANA HOSPITALSpecimen Description.NASAL SWABBON CUSTER REGIONAL HOSPITALRespiratory Panel, Molecular, with COVID-19 (Restricted: peds pts or suitable admitted adults)on 06-44-9231Nsdxtlob Description .NASOPHARYNGEAL SWABBON MERCY HEALTH URBANA HOSPITALUS RETROPERITONEAL LIMITEDon 17-82-1346LUBP RIS CONSOLIDATEDMHPN RIS CONSOLIDATEDRESTON HOSPITAL CENTER Work Phone: US RETROPERITONEAL LIMITEDOrdered By: Desire Mayberry on 53-79-2798EMQ [facility] Work Phone: vl RENAL ARTERIAL DUPLEX COMPLETEon 31-20-8102MSOT STV CPACSRESTON HOSPITAL CENTER Work Phone: vl RENAL ARTERIAL DUPLEX COMPLETEOrdered By: Unknown Result on 56-26-8442TEXSPOTSYLVANIA REGIONAL MEDICAL CENTERTroponin I High Sensitivityon 40-93-6921Drkbwdop I High Nxrpczonzni85 pg/mLOff scale high0-20Access Hospital DaytonComment on above:Result Comment: Results called at 2304 on 08/28/21 PERFORMED BY: [place] [address] PATHOLOGIST TECHNICAL AID MOHINDER MARKS M.D.Performed By: #### HS TROP #### [place] [address] USAActivated partial thromboplastin time (aPTT) in platelet poor plasma by coagulation aOrdered By: Basilio Sam on 81-13-9955tFNV Coag (PPP) [Time]33.0 s25.1-36.5FUniversity Hospitals Geauga Medical CenterAlbumin [Mass/volume] in Serum or PlasmaOrdered By: Basilio Sam on 53-71-9975Rxnrpqs [Mass/Vol]3.2 g/dL3.2-5.5FUniversity Hospitals Geauga Medical CenterB-Type Natriuretic Peptideon 67-34-5728Onwxvcuyqhu peptide B (Bld) [Mass/Vol]300.0 pg/mLHigh5-100 [facility] Hospital DaytonComment on above:Result Comment: PERFORMED BY: [facility] [address] [place] [address] PATHOLOGIST TECHNICAL AID MOHINDER MARKS M.D.Performed By: #### CBC, PT, PTT, CMP, LIPASE, BNP, HS TROP #### [facility] [address] [place] [id number] USABasophils Auto (Bld) [#/Vol]Ordered By: Basilio Sam on 17-65-2571Xsvfsjtjb (Bld) [#/Vol]0.1 10*3/uL0.0-0.2FUniversity Hospitals Geauga Medical CenterBasophils/100 WBC Auto (Bld)Ordered By: Basilio Sam on 08-28-2021 Basophils/100 WBC (Bld)0.6 %[facility] Hospital DaytonBlood hemoglobin measurement (mass/volume)Ordered By: Basilio Sam on 43-71-5339Gocuuuhhal (Bld) [Mass/Vol]13.8 g/dL13.0-17.0[facility] Hospital DaytonBlunited hospital district hospital leukocytes automated count (number/volume)Ordered By: Basilio Sam on 25-50-1237JDS (Bld) [#/Vol]8.9 10*3/uL4.5-11.0[facility] Hospital DaytonCOVID-19 Antigenon 44-59-0122JJSQJ-19 AntigenHealthcare Worker?: N Reference Range: Negative Negative results, [...] developed and its performance characteristic determined by [employer] and validated at [facility]. This test has not been FDA cleared [...] for SARS Antigen by JAYCEE PERFORMED BY: [place] [address] PATHOLOGIST TECHNICAL AID MOHINDER MARKS M.D.NormalAccess Hospital DaytonComment on above: Performed By: #### COVID-19 ANN, SOFIANEG, COVID 19 [facility] #### [place] [address] USACOVID-19 [facility] SULPHURon 56-93-0637JHKJ-CoV-2 (COVID-19) RNA VIK+probe Ql (Unsp spec)NegativeNormalNegativeAccess Hospital Dayton Comment on above:Order Comment: Healthcare Worker?: NResult Comment: Testing for SARS-CoV-2 by RT-PCR This test was developed and its performance characteristics determined by [employer] and validated at the [facility]. This test has not been FDA cleared [...] is terminated or revoked sooner. PERFORMED BY: [place] [address] PATHOLOGIST TECHNICAL AID MOHINDER MARKS M.D.Performed By: #### COVID-19 ANN, SOFIANEG, COVID 19 [facility] #### [place] [address] USACOVID-19 SOFIAOrdered By: Basilio Sam on 08-28-2021 SARS-CoV+SARS-CoV-2 (COVID-19) Ag IA.rapid Ql (Resp)NegativeNegativeAccess Hospital DaytonComment on above:This is a duplicate Ann SARS Antigen (JAYCEE) result to be used for statistical tracking purpose only.Complete Blood Count Auto Diffon 83-41-8189Nzglqbffn (Bld) [#/Vol]0.1 10*3/uLNormal0.0-0.2 [facility] Hospital DaytonComment on above:Result Comment: PERFORMED BY: [place] [address] PATHOLOGIST TECHNICAL AID MOHINDER MARKS M.D.Performed By: #### CBC, PT, PTT, CMP, LIPASE, BNP, HS TROP #### [place] [address] USABasophils/100 WBC (Bld)0.6 %Normal.Access Hospital DaytonComment on above:Performed By: #### CBC, PT, PTT, CMP, LIPASE, BNP, HS TROP #### [place] [address] USAEosinophils (Bld) [#/Vol]0.1 10*3/uLNormal0.0-0.45 Access Hospital DaytonComment on above:Performed By: #### CBC, PT, PTT, CMP, LIPASE, BNP, HS TROP #### [place] [address] USAEosinophils/100 WBC (Bld)1.1 %Normal.Access Hospital DaytonComment on above:Performed By: #### CBC, PT, PTT, CMP, LIPASE, BNP, HS TROP #### [place] [address] USAErythrocyte distribution width (RBC) [Ratio]13.5 %Normal 12.0-14.8Access Hospital DaytonComment on above:Performed By: #### CBC, PT, PTT, CMP, LIPASE, BNP, HS TROP #### [place] [address] USAHematocrit (Bld) [Volume fraction]40.3 %Uzxtsc22.8-50.0 Access Hospital DaytonComment on above:Performed By: #### CBC, PT, PTT, CMP, LIPASE, BNP, HS TROP #### [place] [address] USAHemoglobin (Bld) [Mass/Vol]13.8 g/pRBuarhp23.0-17.0 Access Hospital DaytonComment on above:Performed By: #### CBC, PT, PTT, CMP, LIPASE, BNP, HS TROP #### [place] [address] USALymphocytes (Bld) [#/Vol]2.8 10*3/uLNormal1.00-4.8 Access Hospital DaytonComment on above:Performed By: #### CBC, PT, PTT, CMP, LIPASE, BNP, HS TROP #### [place] [address] USALymphocytes/100 WBC (Bld)31.4 %Normal.Access Hospital DaytonComment on above:Performed By: #### CBC, PT, PTT, CMP, LIPASE, BNP, HS TROP #### [place] [address] USAMCH (RBC) [Entitic mass]28.9 pyVspimo80.5-35.2FUniversity Hospitals Geauga Medical CenterComment on above:Performed By: #### CBC, PT, PTT, CMP, LIPASE, BNP, HS TROP #### [facility] [address] [place] [address] USAMCV (RBC) [Entitic vol]84.9 hEKejqsp60.5-101Access Hospital DaytonComment on above:Performed By: #### CBC, PT, PTT, CMP, LIPASE, BNP, HS TROP #### [facility] [address] [place] [address] USAMean Corpuscular HGB Conc34.1 g/tOQvmdft58.5-35.6FUniversity Hospitals Geauga Medical CenterComment on above:Performed By: #### CBC, PT, PTT, CMP, LIPASE, BNP, HS TROP #### [facility] [address] [place] [address] USAMonocytes (Bld) [#/Vol]0.6 10*3/uLNormal0.0-0.8Access Hospital DaytonComment on above:Performed By: #### CBC, PT, PTT, CMP, LIPASE, BNP, HS TROP #### [facility] [address] [place] [address] USAMonocytes/100 WBC (Bld)6.5 %Normal.Access Hospital DaytonComment on above:Performed By: #### CBC, PT, PTT, CMP, LIPASE, BNP, HS TROP #### [place] [address] USANeutrophils (Bld) [#/Vol]5.4 10*3/uLNormal1.8-7.7FUniversity Hospitals Geauga Medical CenterComment on above:Performed By: #### CBC, PT, PTT, CMP, LIPASE, BNP, HS TROP #### [facility] [address] [place] [address] USANeutrophils/100 WBC (Bld)60.4 %Normal.Access Hospital DaytonComment on above:Performed By: #### CBC, PT, PTT, CMP, LIPASE, BNP, HS TROP #### [place] [address] USANucleated RBC/100 WBC (Bld) [Ratio]0.1 %Normal0-0.5 Access Hospital DaytonComment on above:Performed By: #### CBC, PT, PTT, CMP, LIPASE, BNP, HS TROP #### [facility] [address] [place] [address] USAPlatelet mean volume (Bld) [Entitic vol]7.9 fLNormal 6.6-10.1FUniversity Hospitals Geauga Medical CenterComment on above:Performed By: #### CBC, PT, PTT, CMP, LIPASE, BNP, HS TROP #### [place] [address] USAPlatelets (Bld) [#/Vol]277 10*3/mYAciwqq841-225GzzfslgakAccess Hospital DaytonComment on above:Performed By: #### CBC, PT, PTT, CMP, LIPASE, BNP, HS TROP #### [place] [address] USARBC (Bld) [#/Vol]4.75 10*6/uLNormal3.90-5.60Access Hospital DaytonComment on above:Performed By: #### CBC, PT, PTT, CMP, LIPASE, BNP, HS TROP #### [place] [address] USAWBC (Bld) [#/Vol]8.9 10*3/uLNormal4.5-11.0Access Hospital DaytonComment on above:Performed By: #### CBC, PT, PTT, CMP, LIPASE, BNP, HS TROP #### [place] [address] USAComprehensive Metabolic Panelon 79-71-9641Scbymmn [Mass/Vol]3.2 g/dLNormal3.2-5.5FUniversity Hospitals Geauga Medical CenterComment on above:Performed By: #### CBC, PT, PTT, CMP, LIPASE, BNP, HS TROP #### [place] [address] USAAlbumin/Globulin [Mass ratio]1.0 {ratio}NormalAccess Hospital DaytonComment on above:Performed By: #### CBC, PT, PTT, CMP, LIPASE, BNP, HS TROP #### [facility] [address] [place] [address] USAALP [Catalytic activity/Vol]71 U/DLpentx04-29XbkbvycdzAccess Hospital DaytonComment on above:Performed By: #### CBC, PT, PTT, CMP, LIPASE, BNP, HS TROP #### [place] [address] USAALT [Catalytic activity/Vol]22 U/ZXpgzcs20-47LzqskqrsmAccess Hospital DaytonComment on above:Performed By: #### CBC, PT, PTT, CMP, LIPASE, BNP, HS TROP #### [facility] [address] [place] [address] USAAST [Catalytic activity/Vol]20 U/JXuhdzn46-60NiesvxwubAccess Hospital DaytonComment on above:Performed By: #### CBC, PT, PTT, CMP, LIPASE, BNP, HS TROP #### [place] [address] USABilirubin [Mass/Vol]0.6 mg/dLNormal0.3-1.2FUniversity Hospitals Geauga Medical CenterComment on above:Performed By: #### CBC, PT, PTT, CMP, LIPASE, BNP, HS TROP #### [place] [address] USACalcium [Mass/Vol]10.3 mg/dLHigh8.2-10.2FUniversity Hospitals Geauga Medical CenterComment on above:Performed By: #### CBC, PT, PTT, CMP, LIPASE, BNP, HS TROP #### [place] [address] USAChloride [Moles/Vol]111 mmol/CPihive64-404JaphjbqswAccess Hospital DaytonComment on above:Performed By: #### CBC, PT, PTT, CMP, LIPASE, BNP, HS TROP #### [place] [address] USACO2 [Moles/Vol]20.2 mmol/LLow22.0-30.0Access Hospital DaytonComment on above:Performed By: #### CBC, PT, PTT, CMP, LIPASE, BNP, HS TROP #### [facility] [address] [place] [address] USACreatinine [Mass/Vol]1.80 mg/dLHigh0.64-1.27Access Hospital DaytonComment on above:Performed By: #### CBC, PT, PTT, CMP, LIPASE, BNP, HS TROP #### [facility] [address] [place] [address] USACreatinine Clr Calc Owpixijq52.94NoOhio State Harding HospitalComment on above:Performed By: #### CBC, PT, PTT, CMP, LIPASE, BNP, HS TROP #### [facility] [address] [place] [address] USAEstimated GFR ( Pbvmvfq16FvcaanYlazhlcgjAvita Health System Galion HospitalComment on above:Result Comment: GFR estimated reference range: According to KDOQI guidelines, <60 ml/min/1.73m2 is sufficient to diagnose a patient with chronic kidney disease.Performed By: #### CBC, PT, PTT, CMP, LIPASE, BNP, HS TROP #### [facility] [address] [place] [address] USAEstimated GFR (Non- Fp87UadoiiUyedlojjh[address] [place], [place] [address]Comment on above:Performed By: #### CBC, PT, PTT, CMP, LIPASE, BNP, HS TROP #### [facility] [address] [place] [address] USAGlobulin (S) [Mass/Vol]3.1 g/dLAvita Health System Galion HospitalComment on above:Performed By: #### CBC, PT, PTT, CMP, LIPASE, BNP, HS TROP #### [facility] [address] [place] [address] USAGlucose [Mass/Vol]85 mg/fGJxmnwu85-846CsonlhccyAccess Hospital DaytonComment on above:Result Comment: Random Glucose Reference Range is dependent on time and content of last meal. Glucose of more than 200 mg/dL in a nonstressed, ambulatory subject supports the diagnosis of Diabetes Mellitus. ADA recommended reference rangePerformed By: #### CBC, PT, PTT, CMP, LIPASE, BNP, HS TROP #### [facility] [address] [place] [address] USAPotassium [Moles/Vol]4.2 mmol/LNormal3.5-5.1FUniversity Hospitals Geauga Medical CenterComment on above:Performed By: #### CBC, PT, PTT, CMP, LIPASE, BNP, HS TROP #### [facility] [address] [place] [address] USAProtein [Mass/Vol]6.3 g/dLNormal6.1-7.9Access Hospital DaytonComment on above:Performed By: #### CBC, PT, PTT, CMP, LIPASE, BNP, HS TROP #### [facility] [address] [place] [address] USASodium [Moles/Vol]139 mmol/EEyfrlv939-238LyafyxgzkAccess Hospital DaytonComment on above:Performed By: #### CBC, PT, PTT, CMP, LIPASE, BNP, HS TROP #### [facility] [address] [place] [address] USAUrea nitrogen [Mass/Vol]26 mg/dLHigh9-23Access Hospital DaytonComment on above:Performed By: #### CBC, PT, PTT, CMP, LIPASE, BNP, HS TROP #### [place] [address] USACreatinine and Glomerular filtration rate.predicted panel (S/P/Bld)Ordered By: Basilio Sam on 58-78-4435Hydbgoaoob [Mass/Vol]1.80 mg/dL 0.64-1.27Access Hospital DaytonECG 12 lead ECGon 96-62-2239AET 12 lead ECGTRUMBULL [facility]IAL [facility] Main Manning [address] [place] [address] Electrocardiograph Report Signed Patient: Elias Walker MR#: [id number] : 1985 Acct:[id number] Age/Sex: 36 / M ADM Date: 08/28/21 Loc: ER Room: Type: [facility] ER Attending Dr: Ordering Provider: Basilio Sam [...] Signed By Madison Rodriguez MD 08/05 08/25 0126NormalAccess Hospital DaytonEosinophils Auto (Bld) [#/Vol] Ordered By: Basilio Sam on 13-83-4421Chapqfgtovv (Bld) [#/Vol]0.1 10*3/uL 0.0-0.45Access Hospital DaytonEosinophils/100 WBC Auto (Bld)Ordered By: Basilio Sam on 47-23-3983Ltssgqdbsqt/100 WBC (Bld)1.1 %Access Hospital DaytonErythrocyte distribution width Auto (RBC) [Ratio]Ordered By: Basilio Sam on 32-98-2508Eqwsapfwoiq distribution width (RBC) [Ratio]13.5 % 12.0-14.8Access Hospital DaytonEstimated glomerular filtration rate (GFR) non- AmericanOrdered By: Basilio Sam on 24-47-8076OVH/1.73 sq M.predicted among non-blacks MDRD (S/P/Bld) [Vol rate/Area]43 mL/MinAccess Hospital DaytonGlobulin Calc (S) [Mass/Vol]Ordered By: Basilio Sam on 12-59-8892Vvvdupcr (S) [Mass/Vol]3.1 g/dLAccess Hospital Dayton Hematocrit Auto (Bld) [Volume fraction]Ordered By: Basilio Sam on 08-28-2021 Hematocrit (Bld) [Volume fraction]40.3 %38.8-50.0[facility] DaytonLaboratory - Chemistry and Chemistry - challengeOrdered By: Basilio Sam on 56-48-8447Inetvs [Catalytic activity/Vol]39.0 U/H05-04QjbrepkpzAccess Hospital DaytonNatriuretic peptide B (Bld) [Mass/Vol]300.0 pg/mL5-100[facility] DaytonLaboratory - CoagulationOrdered By: Basilio Sam on 82-83-4554US Coag (PPP) [Time]12.0 s9.0-12.9[facility] - Hematology and Cell countsOrdered By: Basilio Sam on 08-28-2021 Nucleated RBC/100 WBC (Bld) [Ratio]0.1 %0-0.5FUniversity [facility]als [facility] Laboratory - Microbiology and Antimicrobial susceptibilityOrdered By: Basilio Sam on 22-85-1261FBDX-CoV-2 (COVID-19) RNA VIK+probe Ql (Unsp spec)N/A [facility] DaytonLipaseon 09-61-8818Nwvngk [Catalytic activity/Vol]39.0 U/SYhfbsn90-43QadckszgsAccess Hospital DaytonComment on above:Result Comment: PERFORMED BY: [place] [address] PATHOLOGIST [employer] MOHINDER MARKS M.D.Performed By: #### CBC, PT, PTT, CMP, LIPASE, BNP, HS TROP #### [place] [address] USALymphocytes Auto (Bld) [#/Vol]Ordered By: Basilio Sam on 64-91-2851Gcudbyjdmcc (Bld) [#/Vol]2.8 10*3/uL1.00-4.8[facility] DaytonLymphocytes/100 WBC Auto (Bld)Ordered By: Basilio Sam on 08-28-2021 Lymphocytes/100 WBC (Bld)31.4 %[facility] Auto (RBC) [Entitic mass]Ordered By: Basilio Sam on 29-94-6880AEU (RBC) [Entitic mass]28.9 pg27.5-35.2FUniversity Hospitals Geauga Medical CenterMCHC Auto (RBC) [Mass/Vol]Ordered By: Basilio Sam on 30-75-9298LQHD (RBC) [Mass/Vol]34.1 g/dL32.5-35.6FUniversity Hospitals Geauga Medical CenterMCV Auto (RBC) [Entitic vol]Ordered By: Basilio Sam on 26-96-8875DAJ (RBC) [Entitic vol]84.9 fL83.5-101[facility] DaytonMonocytes Auto (Bld) [#/Vol]Ordered By: Basilio Sam on 08-28-2021 Monocytes (Bld) [#/Vol]0.6 10*3/uL0.0-0.8[facility] Monocytes/100 WBC Auto (Bld)Ordered By: Basilio Sam on 13-81-3469Ivsujovpf/100 WBC (Bld)6.5 %[facility] DaytonNeutrophils Auto (Bld) [#/Vol] Ordered By: Basilio Sam on 74-74-0100Zfpefblgkpp (Bld) [#/Vol]5.4 10*3/uL 1.8-7.7FUniversity Hospitals Geauga Medical CenterNeutrophils/100 WBC Auto (Bld)Ordered By: Basilio Sam on 71-94-8753Vrrjjipwpsf/100 WBC (Bld)60.4 %[facility] Hospital DaytonNo Panel InformationOrdered By: Basilio Sam on 58-97-8516ZMBU Antigen (LFIA)[facility] Hospital DaytonEstimated GFR () 52 mL/MinAccess Hospital DaytonComment on above:GFR estimated reference range: According to KDOQI guidelines, <60 ml/min/1.73m2 is sufficient todiagnose a patient with chronic kidney disease.Pharmacy Creatinine Clearance (Chem62.94Access Hospital DaytonPartial Thromboplastin Timeon 61-03-7206tVJC Coag (Bld) [Time]33.0 gEoifmo55.1-36.5FUniversity Hospitals Geauga Medical CenterComment on above:Result Comment: PERFORMED BY: [facility] [address] [place] [address] PATHOLOGIST TECHNICAL AID MOHINDER MARKS M.D.Performed By: #### CBC, PT, PTT, CMP, LIPASE, BNP, HS TROP #### [place] [address] USAPlatelet mean volume Auto (Bld) [Entitic vol]Ordered By: Basilio Sam on 74-60-5704Nqckqarq mean volume (Bld) [Entitic vol]7.9 fL6.6-10.1 [facility] Hospital DaytonPlatelet poor plasma international normalized ratio (INR) by coagulation assay (relatOrdered By: Basilio Sam on 61-21-7202PVG Coag (PPP) [Relative time]1.1 {INR}[facility] Hospital DaytonComment on above:INR Therapeutic Range A) Pre- and Peroperative OAT started two weeks before surgery. NOT HIP SURGERY: 1.5 - 2.5 HIP SURGERY: 2 - 3 B) Primary and secondary prevention of venous THROMBOSIS: 2 - 3 C) Active venous thrombosis, pulmonary embolism and prevention of recurrent venous thrombosis: 2 - 3 D) Prevention of arterial thromboembolism including patients with mechanical heart valves: 3 - 4.5Platelets Auto (Bld) [#/Vol]Ordered By: Basilio Sam on 56-29-2369Wxombitkb (Bld) [#/Vol]277 10*3/uL 150-450Access Hospital DaytonProtein [Mass/volume] in Serum or Plasma Ordered By: Basilio Sam on 10-81-9975Aljomjx [Mass/Vol]6.3 g/dL6.1-7.9[facility] Hospital DaytonProthrombin Time INRon 25-68-9032ASG Coag (PPP) [Relative time]1.1 {INR}NormalAccess Hospital DaytonComment on above: Result Comment: INR Therapeutic Range [...] patients with mechanical heart valves: 3 - 4.5Performed By: #### CBC, PT, PTT, CMP, LIPASE, BNP, HS TROP #### [place] [address] USAPT Coag (PPP) [Time]12.0 sNormal9.0-12.9Access Hospital DaytonComment on above:Performed By: #### CBC, PT, PTT, CMP, LIPASE, BNP, HS TROP #### [facility] [address] [place] [address] USARB Auto (Bld) [#/Vol]Ordered By: Basilio Sam on 32-55-3349QRI (Bld) [#/Vol]4.75 10*6/uL3.90-5.60[facility] Surgical Hospitalerum or plasma alanine aminotransferase measurement without P-5'-P (enzymatic activiOrdered By: Basilio Sam on 31-38-0162SNZ No additional P-5'-P [Catalytic activity/Vol]22 U/B87-80InkumcuxdOhio Valley Surgical Hospitalerum or plasma albumin/globulin mass ratioOrdered By: Basilio Sam on 08-28-2021 Albumin/Globulin [Mass ratio]1.0 {ratio}[facility] Hospitalerum or plasma alkaline phosphatase measurement (enzymatic activity/volume)Ordered By: Basilio Sam on 56-66-7221RYL [Catalytic activity/Vol]71 U/J38-87TeqauwpbxOhio Valley Surgical Hospitalerum or plasma aspartate aminotransferase measurement (enzymatic activity/volume)Ordered By: Basilio Sam on 29-01-6210ZGI [Catalytic activity/Vol]20 U/I50-61BvjzehnxgOhio Valley Surgical Hospitalerum or plasma calcium measurement (mass/volume)Ordered By: Basilio Sam on 33-34-5826Nvvyjyv [Mass/Vol]10.3 mg/dL8.2-10.2FRiverside Methodist Hospitalerum or plasma chloride measurement (moles/volume)Ordered By: Basilio Sam on 08-28-2021 Chloride [Moles/Vol]111 mmol/N52-551OwtjqztboOhio Valley Surgical Hospitalerum or plasma glucose measurement (mass/volume)Ordered By: Basilio Sam on 08-28-2021 Glucose [Mass/Vol]85 mg/mO73-978ExhfwerofAccess Hospital DaytonComment on above:ADA recommended reference range Random Glucose Reference Range is dependent on time and content of last meal. Glucose of more than 200 mg/dL in a nonstressed, ambulatory subject supports the diagnosis of Diabetes Mellitus.Serum or plasma potassium measurement (moles/volume)Ordered By: Basilio Sam on 99-82-0970Psomparlu [Moles/Vol]4.2 mmol/L3.5-5.1FRiverside Methodist Hospitalerum or plasma sodium measurement (moles/volume)Ordered By: Basilio Sam on 10-14-7061Gjffkm [Moles/Vol]139 mmol/M787-388WmmtalylxOhio Valley Surgical Hospitalerum or plasma total bilirubin measurement (mass/volume)Ordered By: Basilio Sam on 97-70-3303Fwjuqwcwe [Mass/Vol]0.6 mg/dL0.3-1.2FRiverside Methodist Hospitalerum or plasma total carbon dioxide measurement (moles/volume)Ordered By: Basilio Sam on 08-28-2021 CO2 [Moles/Vol]20.2 mmol/L22.0-30.0[facility] Surgical Hospitalerum or plasma urea nitrogen measurement (mass/volume)Ordered By: Basilio Sam on 90-12-5658Ewml nitrogen [Mass/Vol]26 mg/dL9-23[facility] Ann Ag Negativeon 71-06-9448Dxmgj Ag NegativeNegativeNormalNegativeAccess Hospital DaytonComment on above:Result Comment: This is a duplicate Ann SARS Antigen (JAYCEE) result to be used for statistical tracking purpose only. PERFORMED BY: [address] [address] PATHOLOGIST TECHNICAL AID MOHINDER MARKS M.D.Performed By: #### COVID-19 CINDI JUAREZ, [address] #### [facility] [address] [place] [address] USATroponin I High Sensitivityon 39-94-4201Ixbtkrwc I High Wmatpbjsqsk04 pg/mLOff scale high0-20Access Hospital DaytonComment on above:Result Comment: Critical value result called at 2040 on 08/28/21 PERFORMED BY: [facility] [address] [place] [address] PATHOLOGIST TECHNICAL AID MOHINDER MARKS M.D.Performed By: #### COVID-19 ANN SOFIANEG, [address] #### [facility] [address] [place] [address] USATroponin I.cardiac [Mass/volume] in Serum or Plasma by High sensitivity methodOrdered By: Basilio Sam on 01-59-2970Jzjkzxuz I.cardiac High sensitivity method [Mass/Vol]62 pg/mL0-20[facility] Comment on above:Results called at 2304 on 08/28/21 Vital Signs Date TimeVital SignValuePerforming AgsgeuujlDrphrjnn01-73-1727 14:25-0400Body pbywut883.1 cmSheng Jerezzer MANAGER MANAGED BACKUP SERVICES-DB2 DEVELOPER Work Phone: [facility] CenterHaloband10-27-2025 14:25-0400Body mass index (BMI) [Ratio]43.87 kg/m2Sheng Jerezzer MANAGER MANAGED BACKUP SERVICES-DB2 DEVELOPER Work Phone: [facility] CenterHaloband10-27-2025 14:25-0400Body bkoqlqkxfnz31 [degF]Sheng Jerezzer MANAGER MANAGED BACKUP SERVICES-DB2 DEVELOPER Work Phone: [facility] CenterHaloband10-27-2025 14:25-0400Body ydhtvp087.57 kgSheng Jerzezer MANAGER MANAGED BACKUP SERVICES-DB2 DEVELOPER Work Phone: [facility] CenterHaloband10-27-2025 14:25-0400Diastolic blood mm[Hg]Sheng Jerezzer MANAGER MANAGED BACKUP SERVICES-DB2 DEVELOPER Work Phone: [facility] CenterHaloband10-27-2025 14:25-0400Heart rate 96 /minSheng Jerezzer MANAGER MANAGED BACKUP SERVICES-DB2 DEVELOPER Work Phone: [facility] CenterHaloband10-27-2025 14:25-0400 Respiratory rate18 /minSheng Jerezzer MANAGER MANAGED BACKUP SERVICES-DB2 DEVELOPER Work Phone: [facility] CenterHaloband10-27-2025 14:25-6449IcC1% (BldA) [Mass fraction]95 %Sheng Jerezzer MANAGER MANAGED BACKUP SERVICES-DB2 DEVELOPER Work Phone: [facility] CenterHaloband10-27-2025 14:25-0400Systolic blood mm[Hg]Sheng Jerezzer MANAGER MANAGED BACKUP SERVICES-DB2 DEVELOPER Work Phone: [facility] Vimwpb84-49-2995 14:51-0400Body wgnsxo429.1 Syeda Khanna APRN-DB2 DEVELOPER Work Phone: [facility] whodoyou Oijgnf67-39-9064 14:51-0400Body mass index (BMI) [Ratio]46.66 kg/z4UkrfeyxJose Khanna APRN-DB2 DEVELOPER Work Phone: [facility] whodoyou Mgjdrl23-71-0026 14:51-0400Body wwutftdsfva54.59 [degF]Jose Khnana APRN-DB2 DEVELOPER Work Phone: [facility] whodoyou Anfaoy90-23-9332 14:51-0400Body ikannt293.19 kgJose Khanna APRN-DB2 DEVELOPER Work Phone: [facility]04-07-2025 14:51-0400Diastolic blood tjehmonf81 mm[Hg]Jose Khanna APRN-DB2 DEVELOPER Work Phone: [facility]04-07-2025 14:51-0400Heart rate 65 /minJose Khanna APRN-DB2 DEVELOPER Work Phone: [facility] wh[facility]oyou Fsakyu22-27-0114 14:51-0400 Respiratory rate18 /minJose Khanna APRN-DB2 DEVELOPER Work Phone: [facility]04-07-2025 14:51-5717PlI3% (BldA) [Mass fraction]97 %Jose Khanna APRN-DB2 DEVELOPER Work Phone: [facility]04-07-2025 14:51-0400Systolic blood kntqkdin378 mm[Hg]Jose Khanna APRN-DB2 DEVELOPER Work Phone: [facility]ou Jpupbt22-14-1659 15:33-0500Body uxdmox199.1 Syeda Khanna APRN-DB2 DEVELOPER Work Phone: [facility]ou Prbugi41-08-4853 15:33-0500Body mass index (BMI) [Ratio]47.29 kg/v9ElayqlpJose Khanna APRN-DB2 DEVELOPER Work Phone: [facility] wh[facility]oyou Hutiqe29-30-3089 15:33-0500Body hyqyrgbbljo14.59 [degF]Jose Khanna APRN-DB2 DEVELOPER Work Phone: [facility]ou Tsbzsb14-07-1714 15:33-0500Body .91 kgJose Khanna APRN-DB2 DEVELOPER Work Phone: [facility] wh[facility]ou Kenlyn08-64-0241 15:33-0500Diastolic blood epispckj76 mm[Hg]Jose Khanna APRN-DB2 DEVELOPER Work Phone: [facility] Wbtcto50-05-5112 15:33-0500Heart rate 76 /minJose Khanna APRN-DB2 DEVELOPER Work Phone: [facility] Aixmaj76-12-0660 15:33-0500 Respiratory rate18 /minJose Khanna APRN-DB2 DEVELOPER Work Phone: [facility] Nbfsld33-49-3638 15:33-0596GyT4% (BldA) [Mass fraction]97 %Jose Khanna APRN-JOSE Work Phone: [facility]ou Pkziaa70-08-8407 15:33-0500Systolic blood fykwdunh857 mm[Hg]Jose Khanna APRN-DB2 DEVELOPER Work Phone: [facility] Daufvi79-26-4832 15:48-0500Body rzpaoi899.1 cmNandevonte PHAM Work Phone: [facility] wh[facility]ou Zretql73-51-3812 15:48-0500Body mass index (BMI) [Ratio]46.59 kg/x7Tujsg Brown LD Work Phone: [facility] Qnwdth39-86-5500 15:48-0500Body afvhbm205.01 kgNandevonte Blancas LD Work Phone: [facility] Vospbk46-31-6950 08:48-0500Body mass index (BMI) [Ratio]46.69 kg/i6LwfcvouJose Khanna APRN-DB2 DEVELOPER Work Phone: [facility] Sresul33-15-8884 08:48-0500Body aujtborhvbh35.5 [degF]Jose MENDEZ Work Phone: [facility]11-12-2024 08:48-0500Body qolzzv861.28 kgJose Khanna APRN-JOSE Work Phone: [facility]11-12-2024 08:48-0500Diastolic blood xvfvxtve60 mm[Hg]Jose Khanna APRN-DB2 DEVELOPER Work Phone: [facility]11-12-2024 08:48-0500Heart rate 81 /minJose Khanna APRN-JOSE Work Phone: [facility]11-12-2024 08:48-6770HdM8% (BldA) [Mass fraction]97 %Jose Khanna APRN-JOSE Work Phone: [facility]11-12-2024 08:48-0500Systolic blood micdovvn536 mm[Hg]Jose Khanna APRN-JOSE Work Phone: [facility]09-19-2024 15:24-0400Body rmorhh258.1 cmVelvis Khanna APRN-JOSE Work Phone: [facility] Yzotuc54-08-7260 15:24-0400Body mass index (BMI) [Ratio]47.03 kg/e6BzdvfogJose Khanna APRN-JOSE Work Phone: [facility]ou Iyuvpy22-53-3336 15:24-0400Body dvazuforzxf08.49 [degF]Jose Khanna APRN-DB2 DEVELOPER Work Phone: [facility]09-19-2024 15:24-0400Body vqujpl279.19 kgJose Khanna APRN-DB2 DEVELOPER Work Phone: [facility]ou Vyjqbm19-45-4804 15:24-0400Diastolic blood dqiyeslv81 mm[Hg]Jose Khanna APRN-DB2 DEVELOPER Work Phone: [facility]09-19-2024 15:24-0400Heart rate 89 /minJose Khanna APRN-DB2 DEVELOPER Work Phone: [facility]09-19-2024 15:24-0400 Respiratory rate20 /minJose Khanna MANAGER MANAGED BACKUP SERVICES-DB2 DEVELOPER Work Phone: [facility]09-19-2024 15:24-9348MuD0% (BldA) [Mass fraction]95 %Jose Khanna MANAGER MANAGED BACKUP SERVICES-DB2 DEVELOPER Work Phone: [facility]09-19-2024 15:24-0400Systolic blood txjmzery087 mm[Hg]Jose Khanna MANAGER MANAGED BACKUP SERVICES-DB2 DEVELOPER Work Phone: [facility]07-31-2024 15:20-0400Body .1 cmVelvis Khanna APRN-DB2 DEVELOPER Work Phone: [facility]07-31-2024 15:20-0400Body mass index (BMI) [Ratio]48.26 kg/r9QuzjdocJose Khanna APRN-DB2 DEVELOPER Work Phone: [facility]07-31-2024 15:20-0400Body acnlwbkhfvu46.71 [degF]Jose Khanna APRN-DB2 DEVELOPER Work Phone: [facility]07-31-2024 15:20-0400Body .54 kgJose Khanna MANAGER MANAGED BACKUP SERVICES-DB2 DEVELOPER Work Phone: [facility]07-31-2024 15:20-0400Diastolic blood mm[Hg]Jose Khanna APRN-DB2 DEVELOPER Work Phone: [facility]07-31-2024 15:20-0400Heart rate 78 /minJose Khanna APRN-DB2 DEVELOPER Work Phone: [facility]07-31-2024 15:20-0400 Respiratory rate18 /minJose Khanna MANAGER MANAGED BACKUP SERVICES-DB2 DEVELOPER Work Phone: [facility]07-31-2024 15:20-5202BjQ8% (BldA) [Mass fraction]96 %Jose Khanna MANAGER MANAGED BACKUP SERVICES-DB2 DEVELOPER Work Phone: [facility]07-31-2024 15:20-0400Systolic blood xfxubiph325 mm[Hg]Jose Khanna MANAGER MANAGED BACKUP SERVICES-DB2 DEVELOPER Work Phone: [facility]07-17-2024 15:04-0400Body jgjpon573.1 cmVelvis Khanna MANAGER MANAGED BACKUP SERVICES-DB2 DEVELOPER Work Phone: [facility]07-17-2024 15:04-0400Body mass index (BMI) [Ratio]48.28 kg/i0NnimxzpJose Khanna MANAGER MANAGED BACKUP SERVICES-DB2 DEVELOPER Work Phone: [facility]07-17-2024 15:04-0400Body xdrovxtlzxq53.2 [degF]Jose Khanna MANAGER MANAGED BACKUP SERVICES-DB2 DEVELOPER Work Phone: [facility]07-17-2024 15:04-0400Body mnuvlw186.59 kgJose Khanna APRN-DB2 DEVELOPER Work Phone: [facility]07-17-2024 15:04-0400Diastolic blood hhmnfueu50 mm[Hg]Jose Khanna MANAGER MANAGED BACKUP SERVICES-DB2 DEVELOPER Work Phone: [facility]07-17-2024 15:04-0400Heart rate 80 /minJose Khanna MANAGER MANAGED BACKUP SERVICES-DB2 DEVELOPER Work Phone: [facility]07-17-2024 15:04-0400 Respiratory rate18 /minJose Khanna MANAGER MANAGED BACKUP SERVICES-DB2 DEVELOPER Work Phone: [facility]07-17-2024 15:04-7455OrD3% (BldA) [Mass fraction]94 %Jose Khanna MANAGER MANAGED BACKUP SERVICES-DB2 DEVELOPER Work Phone: [facility] Hmprot63-91-6898 15:04-0400Systolic blood uxmpfyye31 mm[Hg]Jose Khanna APRN-DB2 DEVELOPER Work Phone: [facility] Czcxeq50-11-4564 10:34-0400Body jmagtg040.1 cmVelvis Khanna APRN-DB2 DEVELOPER Work Phone: [facility] Iuipbe21-09-8829 10:34-0400Body mass index (BMI) [Ratio]48.72 kg/t9KkhsqadJose Khanna APRN-DB2 DEVELOPER Work Phone: [facility] Neiqwu72-00-8853 10:34-0400Body gdndcfackas36.1 [degF]Jose Khanna APRN-DB2 DEVELOPER Work Phone: [facility] Lthpkd68-69-4588 10:34-0400Body xnjope762.81 kgJose Khanna APRN-DB2 DEVELOPER Work Phone: [facility] Qqbnsr65-40-8616 10:34-0400Diastolic blood wlxujykq45 mm[Hg]Jose Khanna APRN-DB2 DEVELOPER Work Phone: [facility] HospitalComment on above:bp very quiet 07-18-2023 10:34-0400Heart rate70 /minJose Khanna APRN-DB2 DEVELOPER Work Phone: [facility] Yfjnuv58-47-3462 10:34-0400 Respiratory rate18 /minJose Khanna APRN-DB2 DEVELOPER Work Phone: [facility] Xdtbfw97-83-5742 10:34-1160KsH5% (BldA) [Mass fraction]95 %Jose Khanna APRN-DB2 DEVELOPER Work Phone: [facility] Cpoesl80-80-1587 10:34-0400Systolic blood uzyqhlqy256 mm[Hg]Jose Khanna APRN-DB2 DEVELOPER Work Phone: [facility] HospitalComment on above:bp very quiet 05-10-2023 13:35-0500Body xxrogd384.1 cmVelvis MENDEZ Work Phone: [facility] Akpoyc80-66-4979 13:35-0500Body mass index (BMI) [Ratio]48.89 kg/c1DxlfczjJose Khanna APRN-DB2 DEVELOPER Work Phone: [facility] Kzmlss25-21-3709 13:35-0500Body coxxmeqoydb36.4 [degF]Jose Khanna APRN-DB2 DEVELOPER Work Phone: [facility] Rzhiix68-09-7469 13:35-0500Body whsukh673.27 kgJose Khanna APRN-JOSE Work Phone: [facility]03-06-2024 13:35-0500Diastolic blood qhfgqyxn61 mm[Hg]Jose Khanna APRN-DB2 DEVELOPER Work Phone: [facility]03-06-2024 13:35-0500Heart rate 84 /minJose Khanna APRN-JOSE Work Phone: [facility] Zwnkic80-78-3270 13:35-4653MvO3% (BldA) [Mass fraction]94 %Jose Khanna APRN-JOSE Work Phone: [facility] Vwvtfy75-11-6947 13:35-0500Systolic blood ihvwgmhv983 mm[Hg]Jose Khanna APRN-DB2 DEVELOPER Work Phone: [facility]03-01-2024 09:11-0500Body .1 cmTereza Carrera APRN-DB2 DEVELOPER Work Phone: [facility] Gzfxnf27-05-5696 09:11-0500Body mass index (BMI) [Ratio]49.52 kg/w9Tkqzseherminio Carrera APRN-DB2 DEVELOPER Work Phone: [facility] Hxlvuu32-21-2959 09:11-0500Body ikalavztjaw66.59 [degF]Tereza Carrera APRN-DB2 DEVELOPER Work Phone: [facility] Axmkiz97-44-1904 09:11-0500Body .99 kgTereza Carrera APRN-DB2 DEVELOPER Work Phone: [facility] Wygtdx18-45-0407 09:11-0500Diastolic blood uqokcxim92 mm[Hg]Tereza Carrera APRN-DB2 DEVELOPER Work Phone: [facility] Izfnnq91-58-1753 09:11-0500Heart rate 90 /minTereza Carrera APRN-DB2 DEVELOPER Work Phone: [facility] Ewroje47-80-7923 09:11-5577LtK7% (BldA) [Mass fraction]98 %Tereza Carrera APRN-DB2 DEVELOPER Work Phone: [facility] Pagfzu45-55-1091 09:11-0500Systolic blood evjjznsn950 mm[Hg]Tereza Carrera APRN-DB2 DEVELOPER Work Phone: [facility] Ugmpmx79-99-3908 09:06-0500Body xugnhn499.1 cmVelvis Khanna APRN-DB2 DEVELOPER Work Phone: [facility] Fxphsm53-31-4276 09:06-0500Body mass index (BMI) [Ratio]50.46 kg/a5Uponlphhermelinda Khanna APRN-DB2 DEVELOPER Work Phone: [facility] Konpsn07-39-4125 09:06-0500Body hefpjgjytra24.3 [degF]Jose Khanna APRN-DB2 DEVELOPER Work Phone: [facility] Djvjnt04-10-5238 09:06-0500Body .53 kgJose Khanna APRN-DB2 DEVELOPER Work Phone: [facility] Itjjmk90-07-6171 09:06-0500Diastolic blood feptltud20 mm[Hg]Jose Khanna APRN-DB2 DEVELOPER Work Phone: [facility] Dmwlkr03-63-2442 09:06-0500Heart rate 76 /minValehermelinda Khanna APRN-DB2 DEVELOPER Work Phone: [facility] Asuiha58-53-1753 09:06-5439HeB5% (BldA) [Mass fraction]97 %Jose Khanna APRN-DB2 DEVELOPER Work Phone: [facility] Yojulm68-92-1300 09:06-0500Systolic blood ayhxfdpu508 mm[Hg]Jose Khanna APRN-DB2 DEVELOPER Work Phone: [facility]01-23-2024 10:17-0500Body .1 cmEliana Merino MANAGER MANAGED BACKUP SERVICES-VAULT SERVICE MECHANIC Work Phone: [facility]01-23-2024 10:17-0500Body mass index (BMI) [Ratio]50.12 kg/m2Eliana Merino MANAGER MANAGED BACKUP SERVICES-VAULT SERVICE MECHANIC Work Phone: [facility] Nmjruz29-92-7599 10:17-0500Body nzglvrzvqif95.59 [degF]Eliana Merino MANAGER MANAGED BACKUP SERVICES-VAULT SERVICE MECHANIC Work Phone: [facility] Fukrcp13-97-1109 10:17-0500Body pkirvs619.62 kgEliana Merino MANAGER MANAGED BACKUP SERVICES-VAULT SERVICE MECHANIC Work Phone: [facility] Efnoja35-95-0525 10:17-0500Diastolic blood guwdidyg31 mm[Hg]Eliana Merino MANAGER MANAGED BACKUP SERVICES-VAULT SERVICE MECHANIC Work Phone: [facility] Nwiudi11-53-1990 10:17-0500Heart rate 75 /minEliana Merino MANAGER MANAGED BACKUP SERVICES-VAULT SERVICE MECHANIC Work Phone: [facility] Kunjrj20-07-1458 10:17-3717DkR9% (BldA) [Mass fraction]98 %Eliana Merino MANAGER MANAGED BACKUP SERVICES-VAULT SERVICE MECHANIC Work Phone: [facility]01-23-2024 10:17-0500Systolic blood krygxysp912 mm[Hg]Eliana Merino MANAGER MANAGED BACKUP SERVICES-VAULT SERVICE MECHANIC Work Phone: [facility]01-03-2024 16:50-0500Body saleys311.1 cmVelvis Khanna APRN-JOSE Work Phone: [facility]01-03-2024 16:50-0500Body mass index (BMI) [Ratio]48.99 kg/r5KfvtlpbJose Khanna APRN-JOSE Work Phone: [facility] Ndjsrt23-57-0778 16:50-0500Body wkfibgynpoj09.7 [degF]Jose Khanna APRN-JOSE Work Phone: [facility] Nbipfl84-17-6889 16:50-0500Body cjhsve793.54 kgJose Khanna APRN-JOSE Work Phone: [facility] Ffogpm63-96-0818 16:50-0500Diastolic blood xhctmufx47 mm[Hg]Jose Khanna APRN-JOSE Work Phone: [facility] Mbahlp53-39-7302 16:50-0500Heart rate 59 /minValehermelinda Khanna APRN-JOSE Work Phone: [facility] Naxfaa64-82-6212 16:50-3576YrQ2% (BldA) [Mass fraction]96 %Jose Khanna APRN-JOSE Work Phone: [facility] Ycmyii75-53-7063 16:50-0500Systolic blood jepqzzmt083 mm[Hg]Jose Khanna APRN-JOSE Work Phone: [facility] Ojlens89-94-0336 13:37-0400Body omkmeslcgxu78.01 [degF]Fly Rauscheh DO Work Phone: bon [facility].sx04-03-2023 13:37-0400Diastolic blood vuwwijgt14 mm[Hg]Fly Lugohaleh DO Work Phone: bon [facility].sx04-03-2023 13:37-0400Heart rate95 /minModick Rauscheh DO Work Phone: PSATRID BTC.sx04-03-2023 13:37-0543EwC7% (BldA) [Mass fraction]96 %Fly Zapata DO Work Phone: bASTRID BTC.sx04-03-2023 13:37-0400Systolic blood mm[Hg]Fly Zapata DO Work Phone: GASTRID [employer] [facility]ENTERPopdustSAGRAR30-13-8011 12:00-0400Body kbesff650.6 cmPrdick Zapata DO Work Phone: [facility]STR[facility]ENTERPopdustKXOCSL55-96-4670 07:56-0400 Respiratory rate18 /minModick Zapata DO Work Phone: QASTRID [employer] [facility]ENTERPopdustKIZACS72-14-5353 06:00-0400Body mass index (BMI) [Ratio]48.7 kg/e0Huubvvnddick Zapata DO Work Phone: LVE BTC.sx04-02-2023 06:00-0400Body .7 kgPrdick Zapata DO Work Phone: TXH [facility]ENTERPopdustSCZYLB66-89-6675 14:15-0400Diastolic blood fqsuzkgj44 mm[Hg][id number] 14:15-0400Heart rate83 /minMth [address] [place], [place] [id number] 14:15-0400Systolic blood sgvewqpq301 mm[Hg][address]Health [address] Solutions [facility] [id number] 16:15-0400Body ewawyxbtlpl52.7 [degF][id number] 16:15-0400 Diastolic blood mm[Hg][id number] 16:15-0400Heart rate78 /minMth [address] [place], [place] [id number] 16:15-0400 Respiratory rate18 /minMth [address] [place], [place] [id number] 16:15-2596WsX2% (BldA) [Mass fraction]99 %[facility] 01[facility]07-23-2022 16:15-0400 Systolic blood unckfxkm657 mm[Hg][facility] 16:18-0400Body .91 [degF][facility] 01[facility]07-22-2022 16:18-0400Heart rate88 /minMth 01[facility]07-22-2022 16:18-0400 Respiratory rate18 /minMth [facility] [facility]07-21-2022 16:00-0400Body avzigdhilta52.3 [degF][facility] 01[facility]07-21-2022 16:00-0400 Diastolic blood yqaphvgw57 mm[Hg][facility] 01[facility]07-21-2022 16:00-0400Heart rate89 /minMth 01[facility]07-21-2022 16:00-0400 Respiratory rate20 /minMth 01[facility]07-21-2022 16:00-0400 Systolic blood acufxtnz656 mm[Hg][facility] 01[facility]07-20-2022 16:03-0400Body bvrsrdcoesi83.6 [degF][facility] 01[facility]07-20-2022 16:03-0400Diastolic blood ftifhgcy14 mm[Hg][facility] 01[facility] 09-22-2021 16:03-0400Heart rate90 /minMth 01[facility]07-20-2022 16:03-0400Respiratory rate20 /minMth 01[facility]07-20-2022 16:03-0400Systolic blood uuuhhate952 mm[Hg][facility] 01[facility] 09-21-2021 16:00-0400Body .1 [degF][facility] 01[facility] 09-21-2021 16:00-0400Diastolic blood thnqoklr19 mm[Hg][facility] 01[facility]PopdustTSRGKV54-43-5127 16:00-0400Heart rate88 /minMth [facility] 09-21-2021 16:00-0400Systolic blood vwnksehl843 mm[Hg][facility] 01[facility]07-18-2022 16:30-0400Body ozjnqiasdqu75.49 [degF][facility] 01[facility]07-18-2022 16:30-0400Diastolic blood tzkuorfv85 mm[Hg][facility] 01[facility]07-18-2022 16:30-0400Heart rate84 /minMth 01[facility] 09-20-2021 16:30-0400Systolic blood hrwuttdl324 mm[Hg][facility] 01[facility]07-17-2022 17:11-0400Body inxvpjfsgbo57.3 [degF][facility] 01[facility]07-17-2022 17:11-0400Diastolic blood boeihkyx49 mm[Hg][facility] 01[facility]07-17-2022 17:11-0400Heart rate90 /minMth 01[facility] 09-19-2021 17:11-0400Systolic blood gswrcnoy349 mm[Hg][facility] 01[facility]07-16-2022 16:00-0400Body jadqtyaytgi86.81 [degF][facility] 01[facility]07-16-2022 16:00-0400Diastolic blood hukklszn00 mm[Hg][facility] 01[facility]07-16-2022 16:00-0400Heart rate92 /minMth 01[facility] 09-18-2021 16:00-0400Respiratory rate18 /minMth 01[facility] 09-18-2021 16:00-4646OeA2% (BldA) [Mass fraction]97 %[facility] 01[facility]07-16-2022 16:00-0400Systolic blood mm[Hg][facility] 01[facility]07-15-2022 16:09-0400Body yxyqqfzkwhx70.7 [degF][facility] 03[facility]07-15-2022 16:09-0400Diastolic blood mm[Hg][facility] 03[facility]07-15-2022 16:09-0400Heart rate88 /minMth 03[facility]DJIUPX33-91-4346 16:09-0400Respiratory rate18 /minMth 03[facility]PITALJWKLGC06-90-3072 16:09-0400Systolic blood dlppbgte456 mm[Hg][facility] 03[facility]PITALOKDNJA00-93-5774 16:09-0400Body gsfkcafhxnm68.71 [degF][facility] 03[facility] HOSPITALUGXVAV48-10-1439 16:09-0400Diastolic blood fxffbync10 mm[Hg][facility] 03[facility]PITALWGEQLG70-95-1861 16:09-0400Heart rate94 /minMth 03[facility]USMAR[facility] HOSPITALYAVWXV82-67-1074 16:09-0400Respiratory rate18 /minMth 03[facility]USMARIA [facility]LE[facility] HOSPITALLJBLFI72-88-9377 16:09-0400Systolic blood numfaqfx021 mm[Hg][facility] 03[facility]07-12-2022 15:25-0400Body phpirtzyook43.59 [degF][facility] 03[facility]07-12-2022 15:25-0400Diastolic blood ursvomtp87 mm[Hg][facility] 03[facility]07-12-2022 15:25-0400Heart rate84 /minMth 03[facility]07-12-2022 15:25-0400Respiratory rate18 /minMth 03[facility]07-12-2022 15:25-0400Systolic blood gdbfuzua676 mm[Hg][facility] 03[facility]07-11-2022 16:28-0400Body hcynbcukhma84.7 [degF]Jared Hernandez MD Work Phone: [facility]07-11-2022 16:28-0400Diastolic blood cinugick88 mm[Hg]Jared Hernandez MD Work Phone: [facility]07-11-2022 16:28-0400Heart rate80 /minJared Hernandez MD Work Phone: [facility]07-11-2022 16:28-0400 Respiratory rate18 /minJared Hernandez MD Work Phone: [facility]USHealth [facility]ENTERPopdustRCQMVM94-07-9087 16:28-9174JrO1% (BldA) [Mass fraction]98 %Jared Hernandez MD Work Phone: [facility]US[facility] Solutions [facility]ENTERPopdustZCJRHQ44-73-3262 16:28-0400Systolic blood zsonivxz295 mm[Hg]Jared Hernandez MD Work Phone: [facility]ENTERPopdustJZLWUZ01-72-4468 11:41-0400Body ngtnieolgeg60.71 [degF]Myke Soliz DO Work Phone: b[facility]ALTHHealth [facility]ENTERPopdustZYACAI67-89-1339 11:41-0400Diastolic blood vvmpegnl20 mm[Hg]Myke Soliz DO Work Phone: [employer] [facility]ENTERPopdustATQZRM59-36-0333 11:41-0400Heart rate75 /minMyke Soliz DO Work Phone: [facility]ENTERPopdustWZYYIX25-54-0411 11:41-0400 Respiratory rate18 /minMyke Soliz DO Work Phone: [facility]ENTERPopdustWVOEGX57-63-0757 11:41-6988YyH9% (BldA) [Mass fraction]94 %Myke Soliz DO Work Phone: [facility]US[facility]ENTERPopdustJIIWLS99-24-7071 11:41-0400Systolic blood mabcjtxb659 mm[Hg]Myke Soliz DO Work Phone: [facility] [employer] [facility]ENTERPopdustORDHIN04-52-0991 04:13-0400Body mass index (BMI) [Ratio]39.92 kg/n7EyxljflMyke Soliz DO Work Phone: [facility]07-09-2022 04:13-0400Body kroynd473.5 kgWijessica Soliz DO Work Phone: [facility]07-05-2022 14:37-0400Body pqjull397.6 cmWijean carloskenyon Soliz DO Work Phone: [facility]06-25-2022 23:12-0400Diastolic blood oonfhhkr268 mm[Hg]PHYSICIAN NO [facility] 08-28-2021 23:12-0400Heart vkid146 /minPHYSICIAN [facility]06-25-2022 23:12-0400Respiratory rate15 /minPHYSICIAN [facility]06-25-2022 23:12-4521CzJ1% (BldA) [Mass fraction]95 %PHYSICIAN NO [facility]06-25-2022 23:12-0400Systolic blood rnalvedq514 mm[Hg]PHYSICIAN [facility]06-25-2022 18:44-0400Body bgguig783.56 cmPHYSICIAN [facility]06-25-2022 18:44-0400Body mass index (BMI) [Ratio]41.3 kg/a1IECNRIJEW [facility]06-25-2022 18:44-0400Body rndaac120.[address] [facility]06-25-2022 18:32-0400Body btocixchtyb63.1 [degF]PHYSICIAN NO [facility] Encounters Encounter DateEncounter TypeCare ProviderFacilityStart: 01-02-2025 End: 48-39-0471KmmaetIpkjhpk Boggs CMAProMedica Physicians Internal Medicine - Family MedicineComment on above:Anxiety and depressionStart: 12-30-2024 End: 99-19-0749hzuyldwrsxUHAI D IRENESelect Medical [facility] Ambulatory PPGStart: 12-30-2024 End: 39-70-5428Ufqhns outpatient visit 25 minutesKyanny Buckner APRN-DB2 DEVELOPER Work Phone: [facility] - Family MedicineComment on above:Screen for STD (sexually transmitted disease) (Primary Dx); Type 2 diabetes mellitus with stage 3 chronic kidney disease and hypertension ([facility]-HCC); Primary hypertension; Loose stools; Moderate episode of recurrent major depressive disorder ([facility]-HCC); Class 3 severe obesity due to excess calories with serious comorbidity and body mass index (BMI) of40.0 to 44.9 in adult ([facility])Start: 12-24-2024 End: 96-15-9594AvzkojUnzi L Yuclarissathor DO Work Phone: [facility] Physicians Internal Medicine - Family MedicineComment on above:Mixed hyperlipidemiaStart: 11-14-2024 End: 82-87-4802qlktqlqdnoGGOX Y JUNProMedica Barcenas HospitalStart: 10-02-2024 End: 10-26-9740Evckrztjh encounterMattqian Abilio Nava DO Work Phone: [facility] 230Comment on above: Appointment RequestStart: 10-01-2024 End: 76-51-1786RtkikxShtjzps Boggs [facility]ALTHProMedica Physicians Internal Medicine - Family MedicineComment on above:Mixed hyperlipidemiaStart: 08-09-2024 End: 82-46-5265Sbybmyiwm encounterPrincess SeugndoMedica Physicians Internal Medicine - Family MedicineStart: 08-08-2024 End: 14-39-7362Xwcxmdmme encounterPrincess Grier CMAProMedica Physicians Internal Medicine - Family MedicineStart: 07-09-2024 End: 53-67-0710Mbtzyjlob encounterMistjed Gary [facility]ALTHProMedica Physicians Internal Medicine - Family MedicineStart: 06-16-2024 End: 46-60-1011DzcimsAderzsgNelly Khanna APRN-DB2 DEVELOPER Work Phone: [facility] Physicians Internal Medicine - Family MedicineComment on above:Seasonal allergic rhinitis due to pollenStart: 06-10-2024 End: 17-19-3781Ehbmuu outpatient visit 25 minutesJose Khanna APRN-DB2 DEVELOPER Work Phone: [facility] Physicians Internal Medicine - Family MedicineComment on above:Uncontrolled type 2 diabetes mellitus with hyperglycemia ([facility]) (Primary Dx); Type 2 diabetes mellitus with microalbuminuria, without long-term current use of insulin ([facility]); Anxiety and depression; Type 2 diabetes mellitus with stage 3 chronic kidney disease and hypertension ([facility])Start: 06-10-2024 End: 90-02-8469wemcvlgfzdQZQHRNFLake [facility] Ambulatory PPG Start: 05-30-2024 End: 52-99-4797NjzdaoHyxeuotNelly MENDEZ Work Phone: [facility] Physicians Internal Medicine - Family MedicineStart: 05-29-2024 End: 24-79-9016MvpszcHsztoaoNelly MENDEZ Work Phone: [facility] Physicians Internal Medicine - Family MedicineComment on above:Moderate episode of recurrent major depressive disorder ([facility]-HCC)Start: 04-21-2024 End: 37-44-2011jilnpqyyyyPqjps Cancelliere RNPRiverside Medical Center Call CenterStart: 04-02-2024 End: 36-37-2032EvhsxuWxdwuiqNelly MENDEZ Work Phone: [facility] Internal Medicine - Family MedicineComment on above:Uncontrolled type 2 diabetes mellitus with hyperglycemia ([facility]-HCC); Type 2 diabetes mellitus with stage 3 chronic kidney disease and hypertension ([facility]-H[facility]); Type 2 diabetes mellitus with microalbuminuria, without long-term current use of insulin ([facility]-HCC)Start: 03-20-2024 End: 39-90-4019xryburdcnrFPGPTriHealth Bethesda Butler Hospitaltart: 03-20-2024 End: 69-70-8307pvixoxtvccWTJS YTogus VA Medical Centertart: 02-29-2024 End: 17-97-9892Xckllr outpatient visit 25 Tanja MENDEZ Work Phone: [facility] Physicians Internal Medicine - Family MedicineComment on above:Uncontrolled type 2 diabetes mellitus with hyperglycemia (CMS-HCC) (Primary Dx); Type 2 diabetes mellitus with microalbuminuria, without long-term current use of insulin (CMS-HCC); Type 2 diabetes mellitus with stage 3 chronic kidney disease and hypertension (CMS-HCC)Start: 02-29-2024 End: 23-33-0358cfvrsosyquIGVZWXUCovenant Health Levelland Ambulatory PPG Start: 02-13-2024 End: 05-82-6018mjrbeoozzgHQJOHOhioHealth Pickerington Methodist Hospitaltart: 02-13-2024 End: 65-65-2724Dzfjzuhbr therapyLabette Health Work Phone: [facility] - Diabetes and Nutrition EducationComment on above:Type 2 diabetes mellitus with other diabetic kidney complication ([facility]-HCC); Essential hypertension, malignant; Stage 3 chronic kidney disease, unspecified whether stage 3a or 3b CKD ([facility]); Morbid obesity ([facility])Start: 01-16-2024 End: 27-88-6997Qltazgwij encounterJose Khanna APRN-JOSE Work Phone: [facility] - Diabetes Start: 01-16-2024 End: 08-27-1848zduhmvgdgeFMKIRLUCascade Medical Center Ambulatory PPG Start: 01-16-2024 End: 39-87-0305Fbqqwl outpatient visit 15 minutesJose Khanna APRN-JOSE Work Phone: [facility] Physicians Internal Medicine - Family MedicineComment on above:Type 2 diabetes mellitus with microalbuminuria, without long-term current use of insulin ([facility])Start: 12-31-2023 End: 85-70-8883jedqiopsvgNpvmi Love RNProMedica Call CenterStart: 12-31-2023 End: 78-38-4211Ffgcjrjwu department patient visitRAIL ROAD FLATHERMELINDA Alonso [facility] Hospitaltart: 12-29-2023 End: 81-70-7576OxuwswOmwlb Gary [facility] HEALTHProMedica Physicians Internal Medicine - Family MedicineComment on above:Mixed hyperlipidemiaStart: 11-29-2023 End: 16-56-3506Mrinkewkp encounterBethany Forrider CMAProMedica Physicians Internal Medicine - Family MedicineStart: 11-27-2023 End: 01-61-0781Aqdzoz OnlyJose Khanna APRN-JOSE Work Phone: [facility] Physicians Internal Medicine - Family MedicineStart: 11-27-2023 End: 65-72-0398SzzdkcSbtsukrNelly Khanna APRN-JOSE Work Phone: [facility] Physicians Internal Medicine - Family MedicineComment on above:Type 2 diabetes mellitus with microalbuminuria, without long-term current use of insulin ([facility])Start: 11-24-2023 End: 74-59-5949NfzlamJokiculNelly Khanna APRN-DB2 DEVELOPER Work Phone: [facility] Physicians Internal Medicine - Family MedicineComment on above:Type 2 diabetes mellitus with microalbuminuria, without long-term current use of insulin ([facility])Start: 11-23-2023 End: 19-42-5189vhippclutiXZUTUHQ J CASTILLOProMedica Wilson Street Hospitaltart: 11-23-2023 End: 42-72-1873Acoeqc outpatient visit 25 minutesJose Khanna APRN-JOSE Work Phone: [facility] Physicians Internal Medicine - Family MedicineComment on above:Type 2 diabetes mellitus with microalbuminuria, without long-term current use of insulin ([facility]) (Primary Dx); Moderate episode of recurrent major depressive disorder ([facility]); Mixed hyperlipidemia; Seasonal allergic rhinitis due to pollen; Type 2 diabetes mellitus with stage 3 chronic kidney disease and hypertension ([facility]); Anxiety and depression; Comprehensive diabetic foot examination, type 2 DM, encounter for ([facility]) Start: 11-13-2023 End: 42-95-4280XukrfqWbgbf Gary [facility] HospitalMediwv Physicians Internal Medicine - Family MedicineComment on above:Moderate episode of recurrent major depressive disorder ([facility]); Type 2 diabetes mellitus with stage 3 chronic kidney disease and hypertension ([facility])Start: 10-20-2023 End: 22-14-0884IlsfpxBecr Cooper [facility] HospitalMediwv Physicians Internal Medicine - Family MedicineComment on above:Type 2 diabetes mellitus with microalbuminuria, without long-term current use of insulin ([facility])Start: 10-04-2023 End: 73-36-6563Lujkatek SupportJose Khanna APRN-DB2 DEVELOPER Work Phone: [facility] Physicians Internal Medicine - Family MedicineStart: 10-01-2023 End: 47-09-2924NpohtaFrtwljMarcin Carrera APRN-DB2 DEVELOPER Work Phone: [facility] Physicians Internal Medicine - Family MedicineStart: 09-20-2023 End: 24-81-4204Uwvznk outpatient visit 15 minutesJose Khanna APRN-DB2 DEVELOPER Work Phone: [facility] Physicians Internal Medicine - Family MedicineComment on above:Folliculitis (Primary Dx)Start: 09-05-2023 End: 73-56-2573sxdyhomjxhZTNBOWJ J CASTILLOMerMercy Health [facility] HospitalStart: 07-25-2023 End: 27-30-6141Ayzzlmncs encounterJose Khanna APRN-DB2 DEVELOPER Work Phone: [facility] Physicians Internal Medicine - Family MedicineStart: 07-19-2023 End: 58-11-1238Hwlzxz OnlyJose Khanna MANAGER MANAGED BACKUP SERVICES-DB2 DEVELOPER Work Phone: [facility] Physicians Internal Medicine - Family MedicineComment on above:Type 2 diabetes mellitus with microalbuminuria, without long-term current use of insulin ([facility]-HCC) (Primary Dx)Start: 07-18-2023 End: 02-99-5502Frcjjd outpatient visit 25 minutesJose Khanna MANAGER MANAGED BACKUP SERVICES-DB2 DEVELOPER Work Phone: [facility] Physicians Internal Medicine - Family MedicineComment on above:Type 2 diabetes mellitus with microalbuminuria, without long-term current use of insulin (CMS-HCC) (Primary Dx); Primary hypertension; Current moderate episode of major depressive disorder without prior episode (CMS-HCC); Mixed hyperlipidemiaStart: 06-26-2023 End: 23-76-1765Oaugjehp SupportJose Khanna MANAGER MANAGED [employer]UP SERVICES-DB2 DEVELOPER Work Phone: [facility] Physicians Internal Medicine - Family MedicineComment on above:Type 2 diabetes mellitus with microalbuminuria, without long-term current use of insulin ([facility]-H[facility]) (Primary Dx)Start: 06-20-2023 End: 62-28-1362cmggvdkfzlMVRGBIIM M TALEBThe Surgical Hospital at Southwoods HospitalStart: 06-14-2023 End: 69-37-1455YkppziYusbzun J Castillo MANAGER MANA[employer]ED [employer]UP SERVICES-DB2 DEVELOPER Work Phone: [facility] Physicians Internal Medicine - Family MedicineStart: 06-14-2023 End: 00-23-8854Cdaioe outpatient visit 10 minutesJeannabonillahaleigh Gavin Khanna APRN-DB2 DEVELOPER Work Phone: [facility] Internal Medicine - Family MedicineComment on above:Type 2 diabetes mellitus with microalbuminuria, without long-term current use of insulin (CMS-HCC) (Primary Dx)Start: 05-30-2023 Telephone encounterMistjed Vega [facility] Physicians Internal Medicine - Family MedicineStart: 05-10-2023 End: 75-42-9136Qzgqhw outpatient visit 25 minutesJose Khanna APRN-DB2 DEVELOPER Work Phone: [facility] Internal Medicine - Family MedicineComment on above:Uncontrolled type 2 diabetes mellitus with hyperglycemia (CMS-HCC) (Primary Dx); Moderate episode of recurrent major depressive disorder (CMS-HCC)Start: 64-63-4513Zthahf Lubna Carrera APRN-[facility] Work Phone: [facility] Internal Medicine - [facility] MedicineStart: 05-05-2023 End: 48-52-7802Sqrmnc outpatient visit 25 CrowdSystemsTereza Carrera APRN-DB2 DEVELOPER Work Phone: [facility] Physicians Internal Medicine - Family MedicineComment on above:Type 2 diabetes mellitus with microalbuminuria, without long-term current use of insulin (CMS-HCC) (Primary Dx); Fasting hyperglycemiaStart: 04-19-2023 End: 69-23-8145Rpaynh outpatient visit 25 minutesJose Khanna [facility]N-[facility] Work Phone: [facility] Internal Medicine - Family MedicineComment on above:Type 2 diabetes mellitus with microalbuminuria, without long-term current use of insulin (CMS-HCC) (Primary Dx); Type 2 diabetes mellitus with stage 3 chronic kidney disease and hypertension (CMS-HCC); Anxiety and depression; Snoring; Mixed hyperlipidemiaStart: 04-03-2023 End: 94-96-5383pprgtwtwtmJZWOYE Ursula KANGSNhan AvailableStart: 83-67-6800Iorhdy Latonia Merino MANAGER MANAGED BACKUP SERVICES-[facility] Work Phone: [facility] Physicians Internal Medicine - Family MedicineComment on above:Lesion of tongue (Primary Dx)Start: 03-28-2023 End: 67-97-4537Xijlja outpatient visit 15 minutesEliana Wilkinson Wilber COOPER-VAULT SERVICE MECHANIC Work Phone: [facility] Internal Medicine - Family MedicineComment on above:Lesion of tongue (Primary Dx)Start: 61-20-7362Mwkczxsherman Khanna APRN-DB2 DEVELOPER Work Phone: [facility] Physicians Family MedicineComment on above: Seasonal allergic rhinitis due to pollenStart: 03-08-2023 End: 38-91-6530Potlud outpatient visit 25 minutesJose Khanna APRN-DB2 DEVELOPER Work Phone: [facility] Internal Medicine - Family MedicineComment on above:Type 2 diabetes mellitus with microalbuminuria, without long-term current use of insulin ([facility]) (Primary Dx); Mixed anxiety and depressive disorder; Mixed hyperlipidemia; Stage 3b chronic kidney disease ([facility])Start: 12-21-2022 End: 20-84-2691tetljhcsztEQKURKQAL S FEDERICORMercy Meriden HospitalStart: 11-08-2022 End: 77-67-2530bqfdoujtggFUMDRSJKT S [facility] MED[facility] CENTERRMgoivanniSelect Medical Specialty Hospital - [facility] HospitalStart: 10-21-2022 End: 39-70-9373mhgkestdmfLUACVKR J CASTILLOOhio State Health System Start: 10-06-2022 End: 02-46-1543ffigqqfzvnLLIPPTG J CASTILLOAshtabula County Medical Center HospitalStart: 10-04-2022 End: 67-00-6216gcntilsilbBFJJGECVD S FEDERICOreagan Meriden HospitalStart: 08-15-2022 End: 20-75-9994Xfcleulhym hospital [facility] by [facility]Mad[facility] Cardiopul[facility] Rm 3 MTHZ Cardiac RehabComment on above:Canceled (Patient)Start: 08-09-2022 End: 17-49-8387Mwzmylhyzp hospital visit by Luz Christina CNP Work Phone: mthz LaboratoryComment on above:Acute kidney injury superimposed on CKD (HCC); Avitaminosis D; Anemia of chronic renal failure, unspecified CKD stage; Hypercalcemia; Hyperparathyroidism (HCC); Stage 3 chronic kidney disease, unspecified whether stage 3a or 3b CKD (HCC); Acute kidney injury (HCC); Dilated cardiomyopathy (HCC); Primary hypertensionStart: 07-25-2022 End: 53-40-3678ossiwsitubVCFEUTogus VA Medical Centertart: 07-18-2022 End: 82-36-9682Ijuigyurav hospital visit by [facility] Cardiopulm Rehab Rm 3 MTHZ Cardiac RehabComment on above:ArrivedStart: 07-13-2022 End: 60-35-2448Bbazzafjxz hospital visit by [facility] Cardiopulm Rehab Rm 3 MTHZ Cardiac RehabComment on above:ArrivedStart: 07-11-2022 End: 84-49-9485Ckvnyezwpd hospital visit by [facility] Cardiopulm Rehab Rm 3 MTHZ Cardiac RehabComment on above:ArrivedStart: 07-07-2022 End: 44-09-3349Ajooymtkji hospital visit by [facility] Cardiopulm Rehab Rm 3 MTHZ LaboratoryComment on above:Acute kidney injury (HCC); Hypercalcemia; Dilated cardiomyopathy (HCC); Primary hypertensionArrivedStart: 07-04-2022 End: 61-68-5799Paojkcbzlr hospital visit by [facility] Cardiopulm Rehab Rm 3 MTHZ Cardiac RehabComment on above:ArrivedStart: 05-23-2022 End: 49-31-3528Syblcbllpe and management of inpatientMolehigh valley hospital - schuylkill south jackson streetpema Zapata DO Work Phone: stvz Car 2- StepdownStart: 05-23-2022 End: 82-21-3799pyifhmmepuPXEBG PARKERFacility:B2Xsxkj: 10-06-2021 End: 03-07-3612Ktkporzzdf hospital visit by Tex Liang [facility] Onc Comment on above:HypercalcemiaStart: 09-28-2021 End: 19-68-2882Csjsxkevkw [facility] Rm 01MTHZ LaboratoryComment on above:Acute kidney injury (HCC); Hypercalcemia; Dilated cardiomyopathy (HCC); Primary hypertensionSepsis due to Streptococcus species without acute organ dysfunction (HCC) (Primary Dx)Start: 09-25-2021 End: 72-59-7922Cajvnfnjmh [facility] [address] [facility] ([place])Comment on above:Sepsis due to Streptococcus species without acute organ dysfunction (HCC) (Primary Dx)Start: 09-24-2021 End: 68-39-4803Swtfumntot hospital [facility] [address] [facility] ([place])Comment on above:Sepsis due to Streptococcus species without acute organ dysfunction (HCC) (Primary Dx)Start: 09-23-2021 End: 87-28-6486Qolyivfnec [facility] [address] [facility] ([place])Comment on above:Sepsis due to Streptococcus species without acute organ dysfunction (HCC) (Primary Dx)Start: 09-22-2021 End: 15-89-3527Magtshthle [facility] [address] [facility] ([place])Comment on above:Sepsis due to Streptococcus species without acute organ dysfunction (HCC) (Primary Dx)Start: 09-21-2021 End: 84-42-7787Icebdnzlvp [facility] [address] [facility] ([place])Comment on above:Sepsis due to Streptococcus species without acute organ dysfunction (HCC) (Primary Dx)Start: 09-20-2021 End: 76-07-8098Cnegaolxpv [facility] [address] [facility] ([place])Comment on above:Sepsis due to Streptococcus species without acute organ dysfunction (HCC) (Primary Dx)Start: 09-19-2021 End: 79-62-4398Ixfzpcnbfl [facility] [address] [facility] ([facility])Comment on above:Sepsis due to Streptococcus species without acute organ dysfunction (HCC) (Primary Dx)Start: 09-18-2021 End: 18-50-3297Fscksiutrn [facility] [address] [facility] ([place])Comment on above:Sepsis due to Streptococcus species without acute organ dysfunction (HCC) (Primary Dx)Start: 09-17-2021 End: 76-11-1194Ypovsocmkf [facility] ([facility])Comment on above:Sepsis due to Streptococcus species without acute organ dysfunction (HCC) (Primary Dx)Acute kidney injury (HCC) Start: 09-15-2021 End: 42-40-6847Eqbtfpdwdj [facility] ([facility])Comment on above:Sepsis due to Streptococcus species without acute organ dysfunction (HCC) (Primary Dx)Start: 09-14-2021 End: 73-26-3183Rcrazczbwq [facility] ([facility])Comment on above:Sepsis due to Streptococcus species without acute organ dysfunction (HCC) (Primary Dx)Start: 09-13-2021 End: 66-93-8744Vuiymzntts hospital visit by Hiro Hernandez MD Work Phone: stvz 3C Med SurgComment on above:Sepsis due to Streptococcus species without acute organ dysfunction (HCC) (Primary Dx)Start: 08-29-2021 End: 11-78-6325Wlmyvhthtg and management of inpatientWilliam Martínez DO Work Phone: stvz 4B StepdownStart: 08-28-2021 End: 69-09-4853Ikvgldklo department patient visitBasilio Sam [facility] End: 07-99-2898Yetovqoou department patient visitPHYSICIAN [facility] Procedures DateProcedureProcedure DetailPerforming ClinicianStart: 89-40-3137Jgubg depression screening assessmentSheng Buckner MANAGER [employer] DEVELOPER Work Phone: Start: 02-91-7226Wnayhhadnz glycosylated i7pWxfcxve Gavin Khanna MANAGER [employer] DEVELOPER Work Phone: Start: 23-10-9256Hmygtqxyuv glycosylated r9aKbpayvc Gavin Khanna MANAGER [employer] DEVELOPER Work Phone: Start: 33-21-4122Siebw depression screening assessment Jose Khanna MANAGER [employer] DEVELOPER Work Phone: Start: 72-68-3998RCM REFERRAL TO DIABETIC EDUCATION Jacob Divina Sharonsidra DO Work Phone: Start: 80-16-3023Ykrjki-up visitFollow-upVALEHERMELINDA KHANNAStart: 54-97-7012Vrlkb depression screening assessmentJose Khanna MANAGER [employer] DEVELOPER Work Phone: Start: 36-28-2817Pxorauhmeo glycosylated w3cBvzfcyghermelinda Khanna APRN-DB2 DEVELOPER Work Phone: Start: 51-36-1094Wehci depression screening assessment Jose Khanna APRN-DB2 DEVELOPER Work Phone: Start: 57-47-4429Nspub depression screening assessment Jose Khanna APRN-DB2 DEVELOPER Work Phone: Start: 84-75-5414Zhbogsaetf glycosylated u6cJhkcfkrhermelinda Khanna MANAGER [employer]2 DEVELOPER Work Phone: Start: 77-52-2172Xrmtz depression screening assessment Jose Khanna APRN-DB2 DEVELOPER Work Phone: Start: 95-41-0124Qtted depression screening assessment Tereza Carrera APRN-DB2 DEVELOPER Work Phone: Start: 50-13-9818Tvela depression screening assessment Tereza Carrera APRN-DB2 DEVELOPER Work Phone: Start: 39-36-8011Ylbgd depression screening assessment Jose Khanna APRN-DB2 DEVELOPER Work Phone: Start: 70-88-8253Muehc depression screening assessment Eliana Merino APRN-[employer] SERVICE MECHANIC Work Phone: Start: 88-13-0551Gdmyxhijdm glycosylated l0kPdvuvwzhermelinda Khanna MANAGER [employer]-DB[employer] DEVELOPER Work Phone: Start: 38-59-9570Kwaku depression screening assessment Jose Khanna APRN-DB2 DEVELOPER Work Phone: Start: 08-09-2022 End: 86-48-0318Xpgny metabolic panel calcium totalBalhinder S Maggie MD Work Phone: Start: 55-58-9976Xfshzeqdqfkp [Mass/volume] in Urine by Test stripJose PECKDB2 DEVELOPER Work Phone: Start: 91-61-0369Ixvuh metabolic panel calcium total Martin Serrano MD Work Phone: Start: 93-21-0074Mxqtuap of coronary artery bypass graftingS/P CABG (coronary artery bypass graft)Mth 3Start: 88-52-6138Uqvybia blood reagent Elyssa Purdy MD Work Phone: [phone]: 06-06-2022 End: 28-47-2628Wejvy metabolic panel calcium Rebecca Purdy MD Work Phone: [phone]: 79-55-6073Jvuluutvpw exam chest single viewAdam M Shamir SOLIS Work Phone: [phone]: 57-22-3094Croujms blood reagent Elyssa Purdy MD Work Phone: [phone]: 33-00-3521Bnuacvauea exam chest single view Eddie Machado APRN - [employer]PER[employer]OR [employer] Work Phone: [phone]: 19-58-5855Uzoohlr blood reagent Elyssa Purdy MD Work Phone: [phone]: 14-66-4625Fcpacxu blood reagent Elyssa Purdy MD Work Phone: [phone]: 37-00-6189Odxgpfchqp exam chest single viewAdam M Shamir PA Work Phone: [phone]: 38-95-2250Okoyx metabolic panel calcium total Ariel Purdy MD Work Phone: [phone]: 84-18-3745Qsriyvz blood reagent Elyssa Purdy MD Work Phone: [phone]: 09-38-8532Nuyxqdp blood reagent Elyssa Purdy MD Work Phone: [phone]: 06-04-2022 End: 23-32-6668Uqiqgen ionizedSyed Nasra Remigio ANN Work Phone: Start: 06-04-2022 End: 44-97-6114Rvkdb metabolic panel calcium Rebecca Purdy MD Work Phone: Start: 37-45-5368Ghat screen quantitative vancomycin Talib Saldaña MD Work Phone: Start: 91-74-4462Sdzyptyxmb exam chest single viewAdam M Shamir SOLIS Work Phone: Start: 63-66-2445Czvqwfj blood reagent stripAriel Purdy MD Work Phone: Start: 72-55-3501ZTOFK METABOLIC PANEL W/ REFLEX TO MG FOR LOW Yancy Saldaña MD Work Phone: Start: 02-33-0560Zlph screen quantitative vancomycin Talib Saldaña MD Work Phone: Start: 62-09-0724Qjxgevs blood reagent stripAriel Purdy MD Work Phone: Start: 28-16-5951Mebpzep blood reagent Elyssa Purdy MD Work Phone: Start: 49-46-3694Oywxkxd blood reagent Elyssa Purdy MD Work Phone: Start: 94-87-5916Nifkrwk blood reagent stripSaga Mercer MD Work Phone: Start: 03-79-8186Xdxezpex screenMohammad Brittneydamirjose DO Work Phone: Start: 69-21-5586Zoeyovx blood reagent stripSaga Mercer MD Work Phone: Start: 96-70-1237Dqqhhhqmwi exam chest single viewAdam M Shamir SOLIS Work Phone: Start: 06-03-2022 End: 32-71-3725Uymma metabolic panel calcium totalAriel Purdy MD Work Phone: Start: 06-03-2022 End: 15-74-2317FDOWDFNE BLOOD GAS, Ranjeet Mercer MD Work Phone: Start: 06-03-2022 End: 39-72-1052Hbga bld gluc mntr dev cleared fda spec home useSaga Mercer MD Work Phone: Start: 21-50-6992GAMARB ACID,POINT OF Ryan Mercer MD Work Phone: Start: 23-28-6937OHVDICBF BLOOD GAS, Ranjeet Mercer MD Work Phone: Start: 06-02-2022 End: 00-49-6562Bhjh bld gluc mntr dev cleared fda spec home Brina Mercer MD Work Phone: Start: 59-02-0108TQBLFI ACID,Osmany Mercer MD Work Phone: Start: 25-75-2989Qohqdsg blood reagent stripSaga Mercer MD Work Phone: Start: 06-02-2022 End: 32-92-8695Ovvgwdi ionizedDaniel Jasmyn ANN Work Phone: Start: 66-73-4302Uelgfxygsj exam chest single viewAdam M Shamir SOLIS Work Phone: Start: 06-02-2022 End: 24-49-7406Klcxf metabolic panel calcium totalAdam M Shamir SOLIS Work Phone: Start: 33-60-0025HUSKOEBR BLOOD GAS, Ranjeet Mercer MD Work Phone: Start: 39-88-7474ELBGJZI, IONIC (POC)Solange Mercer MD Work Phone: Start: 05-09-5555QJBHNHNJJJ W/GFR POINT OF Ryan Mercer MD Work Phone: Start: 84-15-4881NQJNIANZJRQX PLUSSolange Mercer MD Work Phone: Start: 33-14-1883BUOWRL ACID,POINT OF CARESolange Mercer MD Work Phone: Start: 44-13-7745WGJ GLOBAL HEMOSTASIS (TEG 6S)Solange Mercer MD Work Phone: Aqart: 06-02-2022 End: 53-21-7377EFVXABII BLOOD GAS, POCSolange Mercer MD Work Phone: Start: 06-02-2022 End: 90-38-2735HOWLULA, IONIC (POC)Solange Mercer MD Work Phone: Start: 06-02-2022 End: 27-94-4715Xbkj bld gluc mntr dev cleared fda spec home useSaga Mercer MD Work Phone: start: 06-02-2022 End: 59-92-0162Dgcezquse [Moles/volume] in Serum or PlasmaSolange Mercer MD Work Phone: Start: 06-02-2022 End: 23-95-7492Xrcnqu [Moles/volume] in Serum or PlasmaSolange Mercer MD Work Phone: start: 06-02-2022 End: 26-87-3842CQZNCEJW BLOOD GAS, Ranjeet Mercer MD Work Phone: start: 06-02-2022 End: 66-44-9084EPGFMJT, IONIC (POC)Solange Mercer MD Work Phone: Start: 06-02-2022 End: 37-42-5951Kbyy bld gluc mntr dev cleared fda spec home Brina Mercer MD Work Phone: Start: 06-02-2022 End: 18-51-6933Rzewgbjmj [Moles/volume] in Serum or PlasmaSolange Mercer MD Work Phone: start: 06-02-2022 End: 62-38-8447Yjgeti [Moles/volume] in Serum or PlasmaSolange Mercer MD Work Phone: Start: 41-05-4960NQW GLOBAL HEMOSTASIS (TEG 6S)Solange Mercer MD Work Phone: Start: 90-90-5185AEWRN GAP (CALC) Ranjeet Mercer MD Work Phone: Start: 56-93-0197IGIKBLBT BLOOD GAS, POCSolange Mercer MD Work Phone: Start: 83-68-1331DBYDKGY, IONIC (POC)Solange Mercer MD Work Phone: Start: 36-64-7704Hwncjrnr [Moles/volume] in Serum or PlasmaSolange Mercer MD Work Phone: Start: 52-47-3125Azul bld gluc mntr dev cleared fda spec home useSaga Mercer MD Work Phone: Start: 67-93-2472Kzfllhkcy [Moles/volume] in Serum or PlasmaSolange Mercer MD Work Phone: Start: 42-75-8414Hciwgb [Moles/volume] in Serum or PlasmaSolange Mercer MD Work Phone: Start: 06-02-2022 End: 76-80-2198Ugtnqcok artery bypass 3 coronary venous graftsDavita Purdy MD Work Phone: Start: 74-65-2865Gcognjn blood reagent stripSaga Mercer MD Work Phone: Start: 10-53-7350Ksazmeo blood reagent stripSaga Mercer MD Work Phone: Start: 02-84-1925Ezbym metabolic panel calcium total Sarwat Preciado MD Work Phone: Start: 78-77-6152Jtqbjmxebpcflz time partial plasma/whole bloodSolange Mercer MD Work Phone: Start: 35-40-3866Rnxklwi blood reagent stripSaga Mercer MD Work Phone: Start: 06-01-2022 End: 35-23-2538Jepwfitelbsbgo time partial plasma/whole bloodSolange Mercer MD Work Phone: Start: 38-44-1721Dhtmdgt blood reagent stripSaga Mercer MD Work Phone: Start: 69-29-3044Fufzv metabolic panel calcium total Solange Mercer MD Work Phone: Start: 92-13-6867Rrwdfmv blood reagent stripSaga Mercer MD Work Phone: Start: 56-11-6667Izplg count platelet automatedEugene Kent DO Work Phone: Start: 16-61-3878Qrenlfr blood reagent stripSaga Mercer MD Work Phone: Start: 18-36-1896Shdbjrgeioppla time partial plasma/whole bloodSolange Mercer MD Work Phone: Start: 40-84-4754Kdozzgg blood reagent stripSaga Mercer MD Work Phone: Start: 93-07-2162Qxy routine ecg w/least 12 lds i&r onlyDaryl Jeet Parsons MD Work Phone: start: 05-31-2022 End: 24-60-9917Huzyk metabolic panel calcium totalSolange Mercer MD Work Phone: Start: 84-34-4245Kxlrhvg blood reagent stripSaga Mercer MD Work Phone: Start: 25-78-0198ATJRASRB BLOOD GAS, POCShpedro Mercer MD Work Phone: Start: 98-60-0427Abjf bld gluc mntr dev cleared fda spec home useSaga Mercer MD Work Phone: Start: 05-30-2022 End: 05-49-3328Ppkzyoe bacterial quanttative colony count urineNicholas Leslie Carter MANAGER [employer] - [employer] Work Phone: Start: 05-39-1021Tbovx typing serologic aboNicyazmin Machado MANAGER [employer] - [employer]PER[employer]OR [employer] Work Phone: Start: 05-30-2022 End: 82-56-0354Jdkjpmhpqg glycosylated i0iXvbkldloyazmin Machado MANAGER [employer] - [employer] Work Phone: Start: 60-65-5373Yzgeurcdxg microscopic onlyEddie Machado MANAGER [employer] - [employer] Work Phone: Start: 36-90-0945Ruqmu dip stick/tablet rgnt auto w/o microscopyNicyazmin Machado MANAGER [employer] - [employer] Work Phone: Start: 14-94-0039Cvkjxtg blood reagent stripEugene Kent DO Work Phone: Start: 65-52-4577Tnnfpyq blood reagent stripEugene Kent DO Work Phone: Start: 40-01-8693Alahklmqbpnwsh time partial plasma/whole bloodEugene Kent DO Work Phone: Start: 05-30-2022 End: 75-60-4802Uvuyg count platelet automatedEugene Kent DO Work Phone: Start: 10-23-4140Wpkosae blood reagent stripEugene Kent DO Work Phone: Start: 30-13-5011Krfwsmp blood reagent stripEugene Kent DO Work Phone: Start: 59-52-5598Dpvizwp blood reagent stripEugene Kent DO Work Phone: Start: 87-12-8358YJGNO METABOLIC PANEL W/ REFLEX TO MG FOR LOW Yancy Saldaña MD Work Phone: Start: 05-29-2022 End: 95-84-7754Ynrbzbtommbcot time partial plasma/whole bloodEugene Kent DO Work Phone: Start: 70-42-3139Rgtesiy blood reagent stripEugene Kent DO Work Phone: Start: 35-42-7320Nzfmxnu blood reagent stripEugene Kent DO Work Phone: Start: 19-52-5211Hftpkhq blood reagent stripEugene Kent DO Work Phone: Start: 05-63-0452Nwvajuriryzqda time partial plasma/whole bloodEugene Kent DO Work Phone: Start: 85-06-8513Ymiomkg blood reagent stripEugene Kent DO Work Phone: Start: 92-94-9830ESAMJ METABOLIC PANEL W/ REFLEX TO MG FOR LOW Yancy Saldaña MD Work Phone: Start: 72-88-2226Fzalj count platelet automatedEugene Kent DO Work Phone: Start: 05-27-2022 End: 89-15-2098Ffvbzhmevpzuxm time partial plasma/whole bloodEugene Kent DO Work Phone: Start: 22-51-5447Hvyhyqi blood reagent stripEugene Kent DO Work Phone: Start: 94-28-8825Bkyvivqmckbrax time partial plasma/whole bloodEugene Kent DO Work Phone: Start: 05-27-2022 End: 81-29-4828Mdcwnef ionizedMadeeva Preciado MD Work Phone: Start: 05-27-2022 End: 39-77-6125Bjr-scan uxtr art/artl bpgs compl bi Verónica SOLIS Work Phone: Start: 18-51-4145Vmjqwj scan extracranial art compl bi Verónica SOLIS Work Phone: Start: 03-83-8808Onlcmzc blood reagent stripEugene Kent DO Work Phone: Start: 66-34-5707ONEST METABOLIC PANEL W/ REFLEX TO MG FOR LOW Yancy Saldaña MD Work Phone: Start: 29-06-1568Zchemjxjmslnjy time partial plasma/whole bloodEugene Kent DO Work Phone: Start: 07-83-5161Bgdyeidudreede time partial plasma/whole bloodZainulabedin Rudi MD Work Phone: Start: 88-16-4113Sspiuzo blood reagent strip Yanelis Grijalva MD Work Phone: Start: 05-26-2022 End: 38-38-6442Uzmysldfbzwvmk time partial plasma/whole bloodMagui Davis MD Work Phone: Start: 86-22-1004Ykrbdxz catheterizationTajohn Moyer MD Work Phone: Start: 96-61-3908Goitqpg blood reagent strip Yanelis Grijalva MD Work Phone: Start: 90-99-8194BHWVM METABOLIC PANEL W/ REFLEX TO MG FOR LOW KMohammad I Mashaleh DO Work Phone: Start: 05-26-2022 End: 49-56-2241Hwozbapcjqebiw time partial plasma/whole bloodMaxlamar Bhat MD Work Phone: Start: 74-35-8660Kbawmhs blood reagent strip Yanelis Grijalva MD Work Phone: Start: 40-26-5638Ycbbhen blood reagent strip Yanelis Grijalva MD Work Phone: Start: 82-07-9662Njrfkof blood reagent strip Yanelis Grijalva MD Work Phone: Start: 77-32-8221Jwvk tthrc r-t 2d w/wom-mode compl spec&colr dMohammad I Mashaleh DO Work Phone: Start: 90-81-3313QRXUX METABOLIC PANEL W/ REFLEX TO MG FOR LOW KMohammad I Mashaleh DO Work Phone: Start: 05-25-2022 End: 49-88-7217Hxenomegwsxpnb time partial plasma/whole bloodYanelis Grijalva MD Work Phone: Start: 18-61-6810Ezimnhl blood reagent strip Yanelis Grijalva MD Work Phone: Start: 05-24-2022 End: 58-33-7884Eurgzyabyngcpd time partial plasma/whole bloodAlessio Bhat MD Work Phone: Start: 48-65-4717Srywayt blood reagent stripMaxlamar Bhat MD Work Phone: Start: 24-63-9619BHFVC METABOLIC PANEL W/ REFLEX TO MG FOR LOW KMohammad I Benny DO Work Phone: Start: 07-61-4385Bagwa panelMohammad I Shalomeh DO Work Phone: Start: 35-46-1763Hyywssbfpfa direct measurement ldl cholesterolMolloydd I Benny DO Work Phone: Start: 34-96-2385Aqc routine ecg w/least 12 lds i&r onlyMohammad I Benny DO Work Phone: Start: 82-74-5768Sgmjezr blood reagent stripMosrirammad I Benny DO Work Phone: Start: 86-61-8051Xdknfztkfhoiim time partial plasma/whole bloodMohammad I Shalomeh DO Work Phone: Start: 70-62-0848Au retroperitoneal real time w/image completeBrian Gavin Grier MD Work Phone: Start: 40-51-9396KWDXI METABOLIC PANEL W/ REFLEX TO MG FOR LOW KBrian Gavin Grier MD Work Phone: Start: 13-45-9625Bmurzzu blood reagent stripMohammad I Benny DO Work Phone: Start: 06-52-6671Qpive of troponin quantitative Mohammad I Shalomeh DO Work Phone: Start: 56-29-1413Ihecqjc blood reagent stripMohammad I Benny DO Work Phone: Start: 95-44-8433Qic routine ecg w/least 12 lds i&r onlyModick Zapata DO Work Phone: Start: 05-23-2022 End: 13-23-6836Fonxfuovgc glycosylated b1vGicgljfyFly Zapata DO Work Phone: Start: 73-50-5431UBNTBWX, IONIC (POC)Fly Zapata DO Work Phone: Start: 89-20-6982XKMMSRHHPA W/GFR POINT OF CARE Fly Zapata DO Work Phone: Start: 50-42-7850NBUVQUCFMHQQ PLUSModick Zapata DO Work Phone: Start: 95-63-8529FDPTUT ACID,POINT OF CAREFly Zapata DO Work Phone: Start: 81-32-5878HMPOCI BLOOD GAS, POINT OF CARE Fly Zapata DO Work Phone: Start: 60-45-5709Ceyuxoa total xcpt refractometry urineBrahsan Grier MD Work Phone: Start: 19-08-7000Zjtgutotmo microscopic onlyBrahsan Grier MD Work Phone: Start: 90-62-1610Nmjqe dip stick/tablet rgnt auto w/o microscopyBrahsan Grier MD Work Phone: Start: 28-88-1045Nisfubfbilukt metabolic panelMohamed Teresa ANN Work Phone: Start: 09-28-2021 End: 46-40-2027Unpcg metabolic panel calcium totalMartin Serrano MD Work Phone: Start: 02-33-4172Wollm metabolic panel calcium total Solange Mercer MD Work Phone: Start: 45-39-2219Gelbp count complete auto&auto difrntl wbcBen Cesar PA-C Work Phone: Start: 14-26-7036Jnjnn metabolic panel calcium total Solange Mercer MD Work Phone: Start: 83-90-9951Vfxqvgeoew examination osseous survey complMoron Moore MD Work Phone: Start: 20-21-7880Xu thorax w/o contrast Florentin Ambriz MD Work Phone: Start: 03-82-9024Zxruk count complete auto&auto difrntl wbcBen Nasra Arsenio PA-C Work Phone: Start: 62-55-5456Pwzad-fetoprotein serumОлег Ambriz MD Work Phone: Start: 15-46-614550 hydroxy includes fractions if performedBen Nasra Arsenio PA-C Work Phone: Start: 15-74-6921JCOEK METABOLIC PANEL W/ REFLEX TO MG FOR LOW KAndrkami García Arsenio SOLIS-C Work Phone: Start: 92-49-5756CVNBV METABOLIC PANEL W/ REFLEX TO MG FOR LOW Bee Hinson MD Work Phone: Start: 67-80-7873ENLVHNCY REJECTIONSolange Mercer MD Work Phone: Start: 53-65-1404Fsrkt count complete auto&auto difrntl wbcBrian Gracia MD Work Phone: Start: 53-15-0816WDVFHVXM REJECTIONBrian Gracia MD Work Phone: Start: 86-00-4910URGOJ METABOLIC PANEL W/ REFLEX TO MG FOR LOW KAndrkami Howardastrid PA-C Work Phone: Start: 02-07-2018Gfs head w/o contrst materialBen García Arsenio PA-C Work Phone: Start: 72-30-2966Cffnzgmlten planar imaging w/wo subtractionTalib Saldaña MD Work Phone: Start: 60-52-6631VVGSI-19, RAPIDBen García Arsenio APARICIOC Work Phone: Start: 08-02-8425Cmadcytiolu antibody each ig class Ben García Arsenio ALEXIS Work Phone: Start: 09-08-2021 End: 61-13-8190BHQQXQF, BLOOD 1Ataj García Arsenio ALEXIS Work Phone: Start: 89-43-5892Yfulw of magnesiumBrian Gracia MD Work Phone: Start: 27-19-7611RXQZD METABOLIC PANEL W/ REFLEX TO MG FOR LOW KSrinivas Basil ANN Work Phone: Start: 34-73-4768X-reactive proteinSgaurav Gracia MD Work Phone: Start: 44-20-7971Jevce of magnesiumBen Cesar PA-C Work Phone: Start: 96-00-9016OXKNG METABOLIC PANEL W/ REFLEX TO MG FOR LOW KAnparminder Nasra Cesar PA-C Work Phone: Start: 18-30-8845NBITU METABOLIC PANEL W/ REFLEX TO MG FOR LOW KSrinmilkas Basil ANN Work Phone: Start: 35-64-9336Zxlhr count complete auto&auto difrntl wbcBrian Gracia MD Work Phone: Start: 45-26-1115Luhz count misc body fluids w/differential Cecilio Solitario MD Work Phone: Start: 96-97-9794USWULIJBKAXezn Alonso Farley MD Work Phone: Start: 71-64-1079DILSL METABOLIC PANEL W/ REFLEX TO MG FOR LOW KSrinivas Basil ANN Work Phone: Start: 57-09-6464JMKDKKDO BLOOD GAS, POCBrian Gracia MD Work Phone: Start: 09-06-2021 End: 74-22-3280Taya bld gluc mntr dev cleared fda spec home useSgaurav Gracia MD Work Phone: Start: 76-49-9600Ozmih gases any combination ph pco2 po2 co2 urp5Xpgcccvne L Serafin ANN Work Phone: Start: 04-75-0974NSNIY METABOLIC PANEL W/ REFLEX TO MG FOR LOW KSrinivas Basil ANN Work Phone: Start: 91-77-7860Zvvcp count complete auto&auto difrntl wbcBrian Gracia MD Work Phone: Start: 66-56-9012QDTVWXVAIQL PANEL W/ REFLEX TO MG FOR LOW Jermaine Grier MD Work Phone: Start: 07-85-2762Ogk spinal canal cervical w/o contrast karylArtur Quiñones MD Work Phone: Start: 34-85-5374ZJFWOHCE BLOOD GAS, POCBrian Gracia MD Work Phone: Start: 09-04-2021 End: 50-44-2824Cvtp bld gluc mntr dev cleared fda spec home useSgaurav Gracia MD Work Phone: Start: 46-02-9471ACIDN METABOLIC PANEL W/ REFLEX TO MG FOR LOW KSrinivas Basil ANN Work Phone: Start: 46-17-4485Zvvnlojxwx exam chest single view Robert Mcghee MD Work Phone: Start: 27-75-9207Rxpuadwe hiv-1&hiv-2 single result Shun Cervantes MD Work Phone: Start: 86-69-6867Clkir of lipaseRakan Lozano MD Work Phone: Start: 12-78-6144PMRDK METABOLIC PANEL W/ REFLEX TO MG FOR LOW Yani Lozano MD Work Phone: Start: 21-23-8193FEIFOMQV BLOOD GAS, POCBrian Gracia MD Work Phone: Start: 89-03-1102Bbce bld gluc mntr dev cleared fda spec home useSgaurav Gracia MD Work Phone: Start: 54-43-3798Huemrtqndg exam abdomen 1 viewRakan Lozano MD Work Phone: Start: 42-28-5288Neruoji blood reagent stripSgaurav Gracia MD Work Phone: Start: 75-31-2864Uhtyhnitoa other sourceMartin Serrano MD Work Phone: Start: 14-55-2129ACYTXSOKEQF, URINEMartin Serrano MD Work Phone: Start: 30-42-6231Sngpy of parathormoneMartin Serrano MD Work Phone: Start: 70-86-2312Ddojvcddin antigen each component Martin Serrano MD Work Phone: Start: 24-29-0791GHZDQOA LABORATORY CHARGEMartin Serrano MD Work Phone: Start: 09-02-2021 End: 67-32-0977Lnntt of triglyceridesRakan Lozano MD Work Phone: Start: 21-35-6139ROTRA METABOLIC PANEL W/ REFLEX TO MG FOR LOW Yani Lozano MD Work Phone: Start: 00-30-9928Uaiu screen quantitative vancomycin Rakan Lozano MD Work Phone: Start: 33-47-0170Xoejtqvzgd exam chest single view Gisselle Cortez Sra, MD Work Phone: Start: 07-40-6505GEGBBZSS BLOOD GAS, POCBrian Gracia MD Work Phone: Start: 61-58-1149Tra abdomen w/o contrast material Rakan Lozano MD Work Phone: Start: 09-01-2021 End: 31-25-3588Akfyw of triglyceridesBrian Gracia MD Work Phone: Start: 26-46-2945VSAHN METABOLIC PANEL W/ REFLEX TO MG FOR LOW KAmir Gavin Angulo MD Work Phone: Start: 61-29-2920Dczj screen quantitative vancomycin Issac Angulo MD Work Phone: Start: 16-43-1514QBAKCAZV BLOOD GAS, Jack Gracia MD Work Phone: Start: 08-31-2021 End: 44-19-9146FMOTRRY, BLOOD Kimi Lozano MD Work Phone: Start: 55-10-6325Bjwngmtqet exam chest single view Rakan Lozano MD Work Phone: Start: 70-95-8288PTXAA METABOLIC PANEL W/ REFLEX TO MG FOR LOW KAmir Gavin Angulo MD Work Phone: Start: 59-00-1000GHMVWVWN BLOOD GAS, Jack Gracia MD Work Phone: Start: 08-31-2021 End: 17-23-0845Duvb bld gluc mntr dev cleared fda spec home useSrinivas Basil ANN Work Phone: Start: 95-39-7889Lthou centrifuge enhncd id imfluor stain Arden Lozano MD Work Phone: Start: 08-30-2021 End: 46-15-0027Qkv-scan artl celeste abdl/pel/scrot&/rpr orgn comAalvaro Angulo MD Work Phone: Start: 00-92-3579MNFMPUFPLXZ PANEL, MOLECULAR, WITH COVID-19Rakan Lozano MD Work Phone: Start: 66-62-6468Rqwbpdkqac microscopic onlyRakan Lozano MD Work Phone: Start: 92-51-8213Gbkgn dip stick/tablet rgnt auto w/o microscopyRakan Lozano MD Work Phone: Start: 84-28-8227Fkxxiol function panelSalvin Cha MD Work Phone: Start: 99-74-8830Gaawugvagtjfu (pct)Rakan Lozano MD Work Phone: Start: 08-30-2021 End: 40-88-5299IXSLOXG, BLOOD 1Jpaolo Lozano MD Work Phone: Start: 09-30-7811Adntargpgq exam chest single view Rakan Lozano MD Work Phone: Start: 94-07-1466SLOTDBKQ BLOOD GAS, POCSrinivas Basil ANN Work Phone: Start: 11-04-4567Plik bld gluc mntr dev cleared fda spec home useSrinivas Basil ANN Work Phone: Start: 92-83-6544WUPLU METABOLIC PANEL W/ REFLEX TO MG FOR LOW KAmir Gavin Angulo MD Work Phone: Start: 72-71-7314Srxmrrmy totalNini Cha MD Work Phone: Start: 90-35-7168Lxayj of reninNini Cha MD Work Phone: Start: 79-26-1717Bqxxf of reninIssac Angulo MD Work Phone: Start: 92-33-4857QEODZADY REJECTIONIssac Angulo MD Work Phone: Start: 48-30-6948GrvgrziytcvbthrbZqcr J Khan MD Work Phone: Start: 18-51-8007Slgzr of troponin quantitativeIssac Angulo MD Work Phone: Start: 09-38-7190Vcv routine ecg w/least 12 lds i&r onlyIssac Angulo MD Work Phone: Start: 12-65-8568Hydzv s aureus methicillin resist amp probe tqLuliberty Hernandez MD Work Phone: Start: 01-33-1043Qktit of troponin quantitativeIssac Angulo MD Work Phone: Start: 49-16-8533KIHMF METABOLIC PANEL W/ REFLEX TO MG FOR LOW KAmir Gavin Angulo MD Work Phone: Start: 99-08-2791BBYEXTUOEIG CARE EVALUATION ONLY Mercedes Verdin MD Work Phone: Start: 77-69-4821Dtvw transthorc r-t 2d w/wo m-mode rec f-up/lmtdRacheljean carloskenyon Soliz DO Work Phone: Start: 25-34-5663MCTDDPOO BLOOD GAS, POCWipedronasra Soliz DO Work Phone: Start: 66-25-6026CEWOSQ ACID,POINT OF CAREMyke Soliz DO Work Phone: Start: 43-29-3574Vcwn tthrc r-t 2d w/wom-mode compl spec&colr dGtee Arreola MD Work Phone: Start: 63-93-2816Fwknzvdliy exam abdomen 1 viewSadie Quintanilla DO Work Phone: Start: 90-50-7620Pxuujpyvxh exam chest single view Sadie Quintanilla DO Work Phone: Start: 08-29-2021 End: 30-51-8742Vkh bact xcpt urine blood/stool aerobic isolWijean carloskenyon Soliz DO Work Phone: Start: 36-18-6656Cugl count misc body fluids w/differential countWijean carloskenyon Soliz DO Work Phone: Start: 08-29-2021 End: 21-31-7819Ywhtxcv body fluid other than bloodWijean carloskenyon Soliz DO Work Phone: Start: 69-60-6838FMWHTUF, IONIC (POC)Myke Soliz DO Work Phone: Start: 43-01-4876MSQDWXNNWP W/GFR POINT OF CAREMyke Soliz DO Work Phone: Start: 17-24-9189XGEROFYFAVNA PLUSWijessica Soliz DO Work Phone: Start: 03-57-6063JRKNKB ACID,POINT OF CAREWijessica Soliz DO Work Phone: Start: 05-06-3316UTFZQT BLOOD GAS, POINT OF CARE Myke Soliz DO Work Phone: Start: 59-51-2583UVIYT METABOLIC PANEL W/ REFLEX TO MG FOR LOW KGemis Arreola MD Work Phone: Start: 08-29-2021 End: 12-18-7563Iwgfmjslzfk peptideGemis Arreola MD Work Phone: Start: 10-16-4258Rzhuvilhhr exam chest single view Efrem Arreola MD Work Phone: Start: 27-11-0761Ufe routine ecg w/least 12 lds i&r onlyEfrem Arreola MD Work Phone: Start: 15-70-8261JHTJ Antigen (LFIA)PHYSICIAN NO FAMILYHistory of coronary artery bypass graftingS/P CABG (coronary artery bypass graft)Fly Zapata DO Work Phone: Plan of Treatment DateCare ActivityDetailAuthorStart: 01-54-0183Zoliq BMI ScreeningAdult BMI ScreeningProEncompass Health [facility] SystemStart: 98-71-5383Adgplnwlbp ScreeningDepression ScreeningProAultman [facility] Hospitalca Health SystemStart: 16-85-7875Msfxmaa ScreeningTobacco ScreeningProAultman Orrville Hospitalca Health SystemStart: 41-87-3233Iqlvhv Use: Cardiovascular Statin Use: CardiovascularProEncompass Health Rehabilitation [facility] Health SystemStart: 41-21-7273Gzmpso Use: DiabeticStatin Use: DiabeticProEncompass Health Rehabilitation [facility] Health SystemStart: 64-59-6829Nzqghu Use: CardiovascularStatin Use: CardiovascularTriHealth Good Samaritan Hospitalca Health SystemStart: 10-01-2025 Statin Use: DiabeticStatin Use: DiabeticSt. Mary's Medical Center SystemStart: 06-30-2025 End: 51-35-6072Vuwzitj encounter /27/2026 4:00 PM EDT Office Visit [facility] [address] [place] [address] Sheng Buckner, MANAGER MANAGED BACKUP SERVICES-DB2 DEVELOPER [address], [facility] [address] [place] [address] [facility]: 66-13-5389Dpuja BMI Follow Up PlanAdult BMI Follow Up PlanSt. Mary's Medical Center SystemStart: 81-23-7304Ptlye BMI ScreeningAdult BMI ScreeningSt. Mary's Medical Center SystemStart: 23-58-7927Obixwyg ScreeningTobacco ScreeningSt. Mary's Medical Center SystemStart: 31-43-9749Nqcaj BMI Follow Up PlanAdult BMI Follow Up PlanSt. Mary's Medical Center SystemStart: 02-28-2025 Adult BMI ScreeningAdult BMI ScreeningSt. Mary's Medical Center SystemStart: 02-28-2025 Depression ScreeningDepression ScreeningSt. Mary's Medical Center SystemStart: 02-28-2025 Tobacco ScreeningTobacco ScreeningSt. Mary's Medical Center SystemStart: 74-24-8685Vpwcn BMI Follow Up PlanAdult BMI Follow Up PlanSt. Mary's Medical Center SystemStart: 85-01-2806Fqtpr BMI ScreeningAdult BMI ScreeningSt. Mary's Medical Center SystemStart: 38-12-6501Kygagintke ScreeningDepression ScreeningSt. Mary's Medical Center SystemStart: 02-31-9059Nyoxbtk ScreeningTobacco ScreeningSt. Mary's Medical Center SystemStart: 12-30-2024 End: 67-84-3997Qbzzhqe encounter wvpdrffer69/27/2025 2:15 PM EDT Office Visit [facility] - Family Medicine [address] [place] [address] Sheng Buckner, MANAGER MANAGED BACKUP SERVICES-DB2 DEVELOPER [address] [facility] [address] [place] [address] [facility]: 76-57-4468Bzapd BMI ScreeningAdult BMI ScreeningSt. Mary's Medical Center SystemStart: 69-40-7678Vmyqcag ScreeningTobacco ScreeningSt. Mary's Medical Center SystemStart: 19-98-0650Wkkgg BMI Follow Up PlanAdult BMI Follow Up PlanSt. Mary's Medical Center SystemStart: 11-22-2024 Adult BMI ScreeningAdult BMI ScreeningSt. Mary's Medical Center SystemStart: 11-22-2024 Depression ScreeningDepression ScreeningSt. Mary's Medical Center SystemStart: 11-22-2024 Diabetic foot examinationDiabetic Foot ExamUNC Health Johnston Claytontart: 01-35-7288Qotewzv ScreeningTobacco ScreeningSt. Mary's Medical Center SystemStart: 54-66-0485Cnhpuqxzt vaccinationInfluenza VaccineSt. Mary's Medical Center SystemStart: 73-25-7534Fzhsm BMI ScreeningAdult BMI ScreeningSt. Mary's Medical Center SystemStart: 59-32-3365Hlfbsgy ScreeningTobacco ScreeningSt. Mary's Medical Center SystemStart: 58-69-4597Jqtpa BMI Follow Up PlanAdult BMI Follow Up [facility]Parktart: 09-36-0677Rltrm BMI ScreeningAdult BMI ScreeningSt. Mary's Medical Center SystemStart: 48-81-5086Lgjuybfjnn ScreeningDepression ScreeningUNC Health Johnston Claytontart: 09-12-2024 End: 74-54-0596Nlentym encounter ibfsrsdqa16/10/2025 3:20 PM EDT [facility] [address] [place] [address] Jose Khanna, MANAGER MANAGED BACKUP SERVICES-DB2 DEVELOPER [address] [place] [address] [facility]: 84-66-5454Lsvpd BMI Follow Up PlanAdult BMI Follow Up PlanUNC Health Johnston Claytontart: 58-89-6188Aaibx BMI ScreeningAdult BMI ScreeningUNC Health Johnston Claytontart: 91-31-1541Udfurdwgxu ScreeningDepression ScreeningTriHealth Good Samaritan Hospitalca [facility] SystemStart: 90-46-5141Jrpjwec ScreeningTobacco ScreeningTriHealth Good Samaritan Hospitalca [facility] SystemStart: 06-03-2024 End: 52-26-6027Ygsxxxd encounter vuotbfcfu52/31/2025 3:20 PM EDT Office Visit [facility] - [facility] [address] [place] [address] Jose Khanna, MANAGER MANAGED BACKUP SERVICES-DB2 DEVELOPER [address] [place] [address] [facility] - Family MedicineStart: 89-99-8145Fjfyc BMI Follow Up PlanAdult BMI Follow Up PlanSt. Mary's Medical Center SystemStart: 30-68-1190Tewxc BMI ScreeningAdult BMI ScreeningTriHealth Good Samaritan Hospitalca [facility] SystemStart: 73-75-0575Cfzrokjqei ScreeningDepression ScreeningSt. Mary's Medical Center SystemStart: 99-56-0764Yekmvvb ScreeningTobacco ScreeningTriHealth Good Samaritan Hospitalca [facility] SystemStart: 35-58-1683Jjzmm BMI ScreeningAdult BMI ScreeningTriHealth Good Samaritan Hospitalca [facility] SystemStart: 27-63-4184Qotcesuplr ScreeningDepression ScreeningSt. Mary's Medical Center SystemStart: 13-44-5548Jqiozbn ScreeningTobacco ScreeningTriHealth Good Samaritan Hospitalca [facility] SystemStart: 62-70-7171Ipfie BMI Follow Up PlanAdult BMI Follow Up PlanSt. Mary's Medical Center SystemStart: 04-19-2024 Adult BMI ScreeningAdult BMI ScreeningTriHealth Good Samaritan Hospitalca [facility] SystemStart: 04-19-2024 Depression ScreeningDepression ScreeningTriHealth Good Samaritan Hospitalca [facility] SystemStart: 04-19-2024 Tobacco ScreeningTobacco ScreeningTriHealth Good Samaritan Hospitalca [facility] SystemStart: 43-18-3329Ycrwb BMI ScreeningAdult BMI ScreeningTriHealth Good Samaritan Hospitalca [facility] SystemStart: 03-28-2024 Depression ScreeningDepression ScreeningTriHealth Good Samaritan Hospitalca [facility] SystemStart: 03-28-2024 Tobacco ScreeningTobacco ScreeningTriHealth Good Samaritan Hospitalca [facility] SystemStart: 98-69-6769Ilmdk BMI Follow Up PlanAdult BMI Follow Up PlanTriHealth Good Samaritan Hospitalca [facility] SystemStart: 69-57-2183Khxid BMI ScreeningAdult BMI ScreeningSt. Mary's Medical Center SystemStart: 07-74-8903Nwtnaqckhh ScreeningDepression ScreeningSt. Mary's Medical Center SystemStart: 76-56-3107Aamdijs ScreeningTobacco ScreeningUNC Health Johnston Claytontart: 02-29-2024 End: 47-31-3567Meclhlc encounter vcwssefwj71/26/2024 3:20 PM EST [facility] [address] [place] [address] Jose Khanna, MANAGER MANAGED BACKUP SERVICES-DB2 DEVELOPER [address] [place] [address] [facility] - [facility] MedicineStart: 02-13-2024 End: 55-85-3584Xiltozczb tbtclim0302/13/2024 10:30 AM EST Support Visit [facility] - Diabetes and Nutrition Education [address] [place] [address] [facility] - Diabetes and Nutrition EducationStart: 22-46-5926Txwud BMI Follow Up PlanAdult BMI Follow Up [facility]Parktart: 11-23-2023 End: 52-56-0549Qsluezj encounter /19/2024 3:20 PM EDT [facility] [address] [place] [address] Jose Khanna, MANAGER MANAGED BACKUP SERVICES-DB2 DEVELOPER [address] [place] [address] [facility] Internal Medicine - [facility] MedicineStart: 35-01-2341Eoibxafyt vaccinationInfluenza VaccineSt. Mary's Medical Center SystemStart: 10-19-2023 End: 12-39-1999Ejzeebz encounter zsvpzupxa46/15/2024 10:20 AM EDT Office Visit [facility] - Family Medicine [address] [place] [address] Jose Khanna, MANAGER MANAGED BACKUP SERVICES-DB2 DEVELOPER [address] [place] [address] [facility] MedicineStart: 10-18-2023 End: 27-81-4686Pwjfmfi encounter kilkcoaax68/14/2024 10:20 AM EDT Office Visit [facility] - [facility] Medicine [address] [place] [address] Jose Khanna, MANAGER MANAGED BACKUP SERVICES-DB2 DEVELOPER [address] [place] [address] [facility]: 10-04-2023 End: 50-59-3695Ciqofyiu Rdqhtfx1110/04/2023 3:00 PM EDT Clinical Support [facility] - [facility] Medicine [address] [place] [address] ZryTwjrhm Physicians Internal Medicine - [facility] Start: 87-24-2359Fkazaknk foot examinationDiabetic Foot ExamUNC Health Johnston Claytontart: 17-15-5993VZG test (Diabetes, CKD 3-4, OR last GFR 15-59)GFR test (Diabetes, CKD 3-4, OR last GFR 15-59)BON [facility]: 08-10-2023 Urine screening for proteinBON [facility]: 07-18-2023 End: 79-46-7168Eotzodh encounter rqzoxctzg65/14/2024 10:20 AM EDT Office Visit [facility] - Family Medicine [address] [place] [address] Jose Khanna, MANAGER MANAGED BACKUP SERVICES-DB2 DEVELOPER [address] [place] [address] [facility] MedicineStart: 45-42-8604ABG test (Diabetes, CKD 3-4, OR last GFR 15-59)GFR test (Diabetes, CKD 3-4, OR last GFR 15-59)[facility]USY[facility] Centerart: 05-42-3344Pyxwr screening for protein Diabetic Alb to Cr ratio (uACR) testBON [facility]RA[facility]ENTRAL CAMPUSYoink Games [facility] Centerart: 2023 End: 97-59-0505Utxjqvkv Chbcvvi0506/28/2023 1:30 PM EDT Clinical Support [facility] - Family Medicine [address] [place] [address] VjwQgjpfc Physicians Internal Medicine [facility] Start: 12-84-3118FWM test (Diabetes, CKD 3-4, OR last GFR 15-59)GFR test (Diabetes, CKD 3-4, OR last GFR 15-59)[facility]ITAL[facility] Centerart: 06-07-2023 [facility]ITALYo[facility] Centerart: 06-07-2023 End: 22-76-6619Xkmflke encounter wrawvxfpt82/03/2024 9:45 AM EDT [facility] [address] [place] [address] Jose Khanna, MANAGER MANAGED BACKUP SERVICES-[facility] [address] [place] [address] [facility] MedicineStart: 68-25-1346Uglaa panelBON [facility] Southart: 26-44-4450Rsiqi screening for proteinBON [facility] Southart: 05-18-2023 End: 38-15-1146Aupcygxk Jlbyugf5505/18/2023 10:00 AM EDT Clinical [facility] [address] [place] [address] ZozXhlnyf Physicians [facility]: 05-11-2023 End: 21-27-6530Dutnhgm encounter nhwopyoqd79/07/2024 1:00 PM EST Office Visit [facility] - [facility] Medicine [address] [place] [address] Jose Khanna, MANAGER MANAGED BACKUP SERVICES-DB2 DEVELOPER [address] [place] [address] [facility] - [facility] MedicineStart: 04-19-2023 End: 64-43-9299Emjlxbl encounter nlohwgjhu51/14/2024 9:00 AM EST Office Visit [facility] - Family Medicine [address] [place] [address] Jose Khanna, MANAGER MANAGED BACKUP SERVICES-DB2 DEVELOPER [address] [place] [address] [facility] - [facility] MedicineStart: 11-30-2022 End: 27-95-0092Lcyackh encounter jmioolhwp21/27/2023 Office Visit Nephrology Tonie Luna, MANAGER MANAGED BACKUP SERVICES - DB2 DEVELOPER [address] [facility] [place] [address] [facility]: 95-55-7944Aohacltnn vaccinationInfluenza VaccineSt. Mary's Medical Center SystemStart: 02-27-7736Yztvmfkju vaccinationFlu vaccine (Season Ended)BON [facility]: 99-02-7780SKC [facility]: 10-04-2022 End: 07-25-8724Pqnrcla encounter fhbclmvly59/01/2023 Office Visit Nephrology Martin Serrano MD [address] [facility] [place] [address] [facility]: 09-22-2022 End: 53-27-4751Jcmuwti encounter mjtmtbryc31/20/2023 [facility]Start: 09-21-2022 End: 33-37-8000Yvcemtu encounter qpyvdseix60/19/2023 Appointment Card[facility] RehabilitationHIHZ Cardiac RehabStart: 09-19-2022 End: 25-84-8001Frvqxhx encounter lcnytcila03/17/2023 Appointment [facility] RehabilitationHI[facility] Cardiac RehabStart: 09-15-2022 End: 83-61-4022Trtogdp encounter punlrrrfw16/13/2023 Appointment [facility]HI[facility] Cardiac RehabStart: 09-14-2022 End: 91-02-5489Pbgbdsb encounter odhlptqow96/12/2023 Appointment [facility]HI[facility] Cardiac RehabStart: 09-12-2022 End: 33-22-4979Llprtoh encounter tasytpair48/10/2023 Appointment [facility]HI[facility] Cardiac RehabStart: 09-08-2022 End: 50-72-2067Exayakb encounter lxxtycfxj61/06/2023 Appointment [facility] RehabilitationHI[facility] Cardiac RehabStart: 09-07-2022 End: 05-28-0072Gklocpy encounter xewswiiek54/05/2023 Appointment [facility] RehabilitationHI[facility] Cardiac RehabStart: 09-05-2022 End: 64-20-3879Mqgagoh encounter lwzxnfaja87/03/2023 Appointment [facility]HI[facility] Cardiac RehabStart: 09-01-2022 End: 00-51-0286Irfcfdc encounter ljatcqhjj35/29/2023 Appointment [facility] RehabilitationHI[facility] Cardiac RehabStart: 08-31-2022 End: 37-27-9139Iaogtdk encounter jbqlybuqf89/28/2023 Appointment [facility] RehabilitationHI[facility]Z Cardiac RehabStart: 71-43-2547Aleuckhmnf A1c measurementBON [facility]art: 08-29-2022 End: 41-98-3953Wpuclhn encounter /26/2023 Appointment [facility] RehabilitationHIHZ Cardiac RehabStart: 08-25-2022 End: 42-68-5487Omfxjpx encounter azytrmtmv18/22/2023 Appointment [facility] RehabilitationHI[facility] Cardiac RehabStart: 08-24-2022 End: 16-05-7660Fyavrmv encounter yqpkzjsyf61/21/2023 Appointment [facility] RehabilitationHI[facility] Cardiac RehabStart: 08-22-2022 End: 49-78-3325Aewbhyo encounter eyapluqhd35/19/2023 [facility]ment [facility] Card[facility] RehabStart: 08-18-2022 End: 77-85-8173Zgpeary encounter procedureMTHZ Cardiac RehabStart: 08-17-2022 End: 08-64-5978Agcnmui encounter /14/2023 [facility]ment [facility] Card[facility] RehabStart: 08-15-2022 End: 84-26-1388Jvwubyz encounter vqkmclzep53/12/2023 [facility]ment [facility] Card[facility] RehabStart: 08-11-2022 End: 71-26-7424Qnyveyu encounter wvkcvacpu83/08/2023 [facility] Card[facility] RehabStart: 08-10-2022 End: 08-06-0841Dyxoknf encounter sahwbuftk59/07/2023 [facility]ment [facility] Card[facility] RehabStart: 08-09-2022 End: 30-81-0200Jhvwkcn encounter vcahlyysp43/06/2023 Office Visit Nephrology Martin Serrano MD [address] [facility] [place] [facility] [facility]: 08-08-2022 End: 00-18-5893Yceupbl encounter rajkdhhey15/05/2023 [facility] RehabStart: 08-04-2022 End: 30-49-5954Zuddsem encounter jwfgaixhb70/01/2023 [facility] RehabStart: 08-03-2022 End: 60-66-1939Xtvmane encounter xwtewgxnd12/31/2023 [facility] Card[facility] RehabStart: 08-01-2022 End: 81-54-3021Chldotm encounter /29/2023 [facility]ment [facility] Card[facility] RehabStart: 07-28-2022 End: 42-20-5986Mpxdiex encounter /25/2023 [facility]ment [facility] Card[facility] RehabStart: 07-27-2022 End: 84-65-8104Spifmfb encounter ghedshfdr48/24/2023 [facility]ment [facility] Card[facility] RehabStart: 07-25-2022 End: 48-59-0228Zbawagn encounter rxzxhuclk62/22/2023 [facility] Card[facility] RehabStart: 07-21-2022 End: 56-30-4614Euyxtnn encounter xewqetulc27/18/2023 [facility] Card[facility] RehabStart: 07-20-2022 End: 17-99-0065Irfjrgz encounter pccwmppox56/17/2023 [facility]ment [facility] Card[facility] RehabStart: 07-18-2022 End: 30-95-1561Vftmwnc encounter qdhkhrysp11/15/2023 [facility]ment [facility] Card[facility] RehabStart: 07-14-2022 End: 81-43-8783Jtaewqt encounter szokhdohn19/11/2023 [facility]ment [facility] Card[facility] RehabStart: 07-13-2022 End: 63-82-1235Ljoutrh encounter rlmnhzowk82/10/2023 [facility]ment [facility] Card[facility] RehabStart: 07-12-2022 End: 45-24-0186Hzpixyw encounter jwdtyvqts73/09/2023 Office Visit Cardiology Alecia England MD [address] Safety Engineer - [facility]: 07-11-2022 End: 04-48-2862Txgurvl encounter /08/2023 [facility]ment [facility] Card[facility] RehabStart: 07-07-2022 End: 82-05-6132Cigvdgw encounter ymgtkchyv78/04/2023 App[facility]ment [facility] Card[facility] RehabStart: 07-06-2022 End: 81-25-5608Dxbmofg encounter procedureEDGEWOOD STATE [facility] Cardiac RehabStart: 12-07-2021 End: 56-97-7310Vhrskim encounter jweuzzhyz15/04/2022 Office Visit Nephrology Martin Serrano MD [address] [facility] [place] [place] [facility]: 09-12-8833Boceidxis vaccinationFlu vaccine (#1)BON [facility]: 51-15-7383HWR [facility]: 10-19-2021 End: 44-62-3117Dfkxivp encounter fdxccpnav81/16/2022 Office Visit Infectious Diseases Ashish Henao MD [address] [address] [facility] Infectious DiseaseStart: 10-06-2021 End: 79-81-6409Echwyqb encounter aozdqttst38/03/2022 Office [place] [address] [place], [place] [phone] (Work) [facility]: 09-28-2021 End: 07-42-2049Nfcgwby encounter procedureNephrology Assoc [facility] Start: 09-27-2021 End: 19-02-2824Mqqdfvn encounter wpcltyjfb21/25/2022 Appointment [facility]: 09-26-2021 End: 89-27-4423Gvvoeij encounter dsplrrddo61/24/2022 Appointment [facility]Start: 09-25-2021 End: 96-73-9007Bsijhqd encounter gjbmaepzw86/23/2022 Appointment [facility]Start: 09-24-2021 End: 70-19-0672Qvnphip encounter qltoelbkl69/22/2022 Appointment [facility]Start: 09-23-2021 End: 58-88-3704Ftbijsu encounter leqwlkivt04/21/2022 Appointment [facility]Start: 09-22-2021 End: 00-14-4207Rxreapy encounter lpujznnnm95/20/2022 Appointment [facility]Start: 09-21-2021 End: 02-74-3529Hynxznd encounter /19/2022 Appointment [facility])Start: 09-20-2021 End: 77-56-0380Xxpajdm encounter fqzqeibgt86/18/2022 Appointment Infusion TherapyMTHZ [facility] ([facility]B)Start: 09-19-2021 End: 38-15-2355Ecppvmk encounter ktkgxqgva50/17/2022 Appointment Infusion TherapyMT [facility]ty Clinic (MOB)Start: 09-19-2021 End: 92-42-3428Fzhum metabolic 2000 panel - Serum or PlasmaBON [facility] CareToSave Work Phone: start: 09-18-2021 End: 30-40-4943Vvarkoo encounter hgpcnvkti80/16/2022 [facility]Start: 09-17-2021 End: 91-74-1353Gtmtsyw encounter szsxzmkme92/15/2022 Appointment Infusion TherapyMT [facility]ty Clinic (MOB)Start: 09-16-2021 End: 67-07-7640Ezqutwi encounter arqmdgukt94/14/2022 [facility] ([facility]Start: 45-54-8626Xdleteldgc hospital visit by drgpbgesb37/13/2022 Hospital En[facility]Start: 09-14-2021 End: 83-03-8025Jvxbphf encounter /12/2022 Appointment OncologySTVZ 3C Med SurgStart: 09-13-2021 End: 40-73-8495gqnkvecmxeSPCH 3C Med SurgStart: 92-13-7987Tvgfkfsg screen Diabetes screenMary Washington Hospitalart: 18-31-8310FXWRESTON HOSPITAL CENTER Start: 92-00-9738YArY,Tdap and Td Vaccines (1 - Tdap)DTaP,Tdap and Td Vaccines (1 - Tdap)[facility] SystemStart: 32-76-0781AVpJ/Tdap/Td vaccine (1 - Tdap)DTaP/Tdap/Td vaccine (1 - Tdap)[facility]art: 06-29-2003 Hepatitis B vaccine (1 of 3 - Risk 3-dose series)Hepatitis B vaccine (1 of 3 - Risk 3-dose series)[facility]ENTERStart: 10-51-4261GNL [facility]: 91-89-1598Qkwippbc screeningCentra [facility]: 40-22-9628Xmawkglkyb ScreenDepression ScreenBON [facility] Southart: 07-21-2273QWD [facility]art: 63-48-9945Plhewgii foot examinationBON [facility]: 44-12-2868Resjtiquwfer 0-64 years Vaccine (1 - PCV) Pneumococcal 0-64 years Vaccine (1 - PCV)[facility] HOSPITALYoink Games [facility]ITALStart: 19-64-1070HNE [facility]USHealth Impact Solutions [facility] CENTERAvaamo [facility]OS[facility]ITALStart: 85-19-5901HGXMF-19 Vaccine (1)COVID-19 Vaccine (1)[facility]OSPITALYoink Games [facility]ITALStart: 94-65-8673HJZ [facility]ENTRAL CAMPUSYoink Games [facility] Start: 46-83-2709Wqovdfemm vaccine (1 of 2 - 2-dose childhood series)Varicella vaccine (1 of 2 - 2-dose childhood series)[facility] HOSPITALHealth Impact Solutions [facility] CENTERAvaamo [facility]ITALStart: 67-95-7916FFC [facility]TRAL CAMPUSYoink Games [facility] Centerart: 08-37-8289JWQCW-19 Vaccine (#1)COVID-19 Vaccine (#1)[facility] HOSPITALHealth Impact Solutions [facility] CENTERAvaamo [facility] Centerart: 40-04-6417DKK [facility]TR[facility] CAMPUSCompuTEK Industries, LLC. Start: 54-93-1473Gotizypo screeningDiabetic Ophthalmology ExamProUniversity Hospitals Lake West Medical Centertart: 04-97-4028Kbewnwm CounselingTobacco CounselingProTogus Va Medical CenterABG drawSIERRA VISTA REGIONAL [facility] Logicalware Phone: acapellaBON [employer] Phone: End: 74-45-2676Smwgm metabolic 2000 panel - Serum or PlasmaSIERRA VISTA REGIONAL HEALTH CENTER [employer] Phone: End: 32-82-3096Wsir-2 Glycoprotein AntibodiesSIERRA VISTA REGIONAL HEALTH CENTER [employer] Phone: [phone]-9 Glycoprotein AntibodiesSIERRA VISTA REGIONAL HEALTH CENTER [employer] Phone: End: 82-29-2629UJDSP BANK REQUESTBON [employer] Phone: End: 54-88-0635Fzkdu Bank SpecimenBON [employer] Phone: End: 26-47-6471Ysvuqhj, IonizedBON [employer] Phone: cARDIAC PHASE IICARDIAC PHASE II Card Rehab Ordered: 07/04/2022 BTC.sxSaint Luke'S North Hospital–Barry Roadment on above:Ordered: 07/04/2022ARDIAC PHASE IICARDIAC PHASE II Card Rehab Ordered: 07/07/2022ON BTC.sx Comment on above:Ordered: 07/07/2022ARDIAC PHASE IICARDIAC PHASE II Card Rehab Ordered: 07/18/2022ON BTC.sxComment on above:Ordered: 07/18/2022 End: 52-25-7096URC panel - Blood by Automated countSIERRA VISTA REGIONAL HEALTH CENTER Log[employer] Phone: cBC W Auto Differential panel - BloodSIERRA VISTA REGIONAL HEALTH CENTER Log[employer] Phone: End: 96-78-5348Icmqwdocy trachomatis DNA [Presence] in Unspecified specimen by VIK with probe detectionChlamydia/Gonorrhoeae by PCR, Urine Microbiology Routine Screen for STD (sexually transmitted disease) 1 Occurrences starting 12/30/2024 until 12/30/2025[facility] Work Phone: Comment on above:1 Occurrences starting 12/30/2024 until 12/30/2025hlamydia trachomatis DNA [Presence] in Unspecified specimen by VIK with probe detectionChlamydia/Gonorrhoeae by PCR, Urine Microbiology Routine Screen for STD (sexually transmitted disease) 12/30/2024 2:56 PM [facility]ike Medical CenterContinuous pulse oximetryCHARLES RIVER HOSPITALMyTrade Phone: continuous pulse oximetrySIERRA VISTA REGIONAL HEALTH CENTER Logicalware Phone: culture, Blood 1BON ABRA[facility] CENTRAL CAMPUSMyTrade Phone: eZPAPBATRIUM HEALTHMyTrade Phone: Glucose [Mass/volume] in Serum or PlasmaSIERRA VISTA REGIONAL HEALTH CENTER Log[employer] Phone: End: 32-54-1998Vrcnabp [Mass/volume] in Serum or PlasmaSIERRA VISTA REGIONAL HEALTH CENTER Log[employer] Phone: End: 23-92-6476Gxaxa panelLipid panel Lab Routine Type 2 diabetes mellitus with microalbuminuria, without long-term current use of insulin ([facility]) 1 Occurrences starting 11/23/2023 until 11/22/2024[facility] Work Phone: Comment on above:1 Occurrences starting 11/23/2023 until 11/22/2024 End: 73-96-3846Ypwzyvbys [Mass/volume] in Serum or PlasmaBON [employer] Phone: End: 85-56-2499Wbxagdaezroj / Creatinine Urine RatioMicroalbumin / Creatinine Urine Ratio Lab Routine Acute kidney injury superimposed on CKD (HCC) 1 Oc currences starting 08/09/2022 until 08/09/2022ON [employer] Work Phone: comment on above:1 Occurrences starting 08/09/2022 until 08/09/2022 End: 33-51-0319Wbvninleoqop, UrBON Logical[employer] Phone: comment on above:Once for 1 Occurrences starting 08/09/2022 until 08/09/2022Nasal Cannula OxygenBON [employer] Work Phone: Oxygen therapy [Minimum Data Set]BON [employer] Work Phone: Oxygen therapy [Minimum Data Set]BON [employer] Work Phone: Patient referralUniversity Hospitals Portage Medical Center Work Phone: End: 79-92-4759FZT Blood GasBON [employer] Work Phone: End: 67-78-0380NVTYDUV RBC (CROSSMATCH), 2 UnitsBON [employer] Work Phone: End: 96-10-6263QDHPXBOP SPECIMENBON [employer] Work Phone: End: 65-32-7227CQE, Intact with Ionized CalciumBON [employer] Phone: comment on above:1 Occurrences starting 08/09/2022 until 08/09/2022 End: 19-45-5989VIQ-Related PeptideBON [employer] Work Phone: [phone]-KvU-2 (COVID-19) N gene [Presence] in Respiratory specimen by VIK with probe detectionUniversity Hospitals Portage Medical Center Work Phone: End: 21-08-2711Xtbuupgbah panelRESTON HOSPITAL CENTER Work Phone: End: 70-94-2002Ounerrmixei by PCRTrichomonas by PCR Microbiology Routine Screen for STD (sexually transmitted disease) 1 Occurrencesstarting 12/30/2024 until 12/30/2025ProBarnesville Hospital SystemComment on above:1 Occurrences starting 12/30/2024 until 12/30/2025Trichomonas by PCRTrichomonas by PCR Microbiology Routine Screen for STD (sexually transmitted disease) 12/30/2024 2:56 PM EDT [facility] End: 09-50-6576Tjdoxwn D 25 [facility] Work Phone: comment on above:Once for 1 Occurrences starting 07/07/2022 until 07/07/2022 End: 84-74-2371Ivmuitu D 25 HydroxyRESTON HOSPITAL CENTER Work Phone: comment on above:1 Occurrences starting 08/09/2022 until 08/09/2022XR BONE SURVEY COMPLETERESTON HOSPITAL CENTER Work Phone: xr [facility] Work Phone: xr [facility]ST [facility] Work Phone: Immunizations Immunization DateImmunizationNotesCare AnurjfdgWtxvkdgw25-87-1755xqalgybmk virus vaccine, unspecified formulationValerie Thiago MANAGER [employer]NA[employer]-[facility] Work Phone: [facility] Payers DatePayer CategoryPayerPolicy [id number]-[id number] [id number] 2022Medicaid [id number] 2022Medicaid000000000000 [id number] 2.16840.1.034103.3.57[id number] 2.16840.1.818939.3.57[id number] 2.16840.1.449515.3.57[id number] 2.16840.1.341381.3.57[id number] 2.16840.1.974200.3.57[id number] 2.840.1.801792.3.57[id number] 2.16840.1.739440.3.57[id number] 2.16840.1.600826.3.57[id number] 2.16840.1.404217.3.57[id number] 2.16840.1.319024.3.57[id number] 2.16840.1.889778.3.57[id number] 2.16840.1.866563.3.57[id number] 2.16840.1.174915.3.57[id number] 2.16840.1.587228.3.57[id number] 2.16.840.1.134231.3.57[id number] 2.16.840.1.783932.3.57[id number] 2.0.1.796718.3.57[id number] 2.16.840.1.169987.3.57[id number] 2.0.1.110562.3.57[id number] 2.0.1.347421.3.579.2.1286 [id number] 2.0.1.881785.3.579.2.531 Social History DateTypeDetailFacilityStart: 08-28-2021 End: 42-25-5523Zwthayz smoking status NHISSmoker (finding)[facility] Hospitaltart: 01-91-9565Zht Assigned At [facility] Hospitaltart: 01-31-2016 End: 46-71-0859Ompzisn smoking status NHISSmokes tobacco dailyCHARLES RIVER HOSPITALYoink Games [facility]ITALStart: 01-31-2016 End: 89-56-4159Vkduuegqor smoked current (pack per day) - ReportedTriHealth Good Samaritan HospitalGTRAN [facility] SystemStart: 08-29-2021 End: 22-56-5992Glyrxop intakeCurrent drinker of alcohol (finding)[employer] Phone: start: 96-30-5736Wfjcvhe SDOH Alcohol Commentsocially [facility] [employer] Phone: start: 10-57-1781Aix Assigned At [facility] [employer] Phone: start: 08-19-2021 End: 11-46-6299Bjhialbw to SARS-CoV-2 (event)Not sureHIGH MOBILITY End: 28-76-7391Opdmcnt of tobacco useCigarette SmokerEcho Therapeutics Phone: start: 10-06-2021 End: 19-49-4735Fjipgqt use and exposureFormer smokeless tobacco [email or web address] Phone: start: 10-19-2021 End: 20-32-2315Mmmrhic smoking status NHISEx-smokerHIGH MOBILITY End: 01-16-6530Bledunw of tobacco useSnuff Jianshu Phone: start: 11-23-2023 End: 48-38-1859Pggolvafw beverage intakeEx-drinker (finding)[facility] whodoyou SystemStart: 01-26-2022 End: 17-47-8869Uhnwar connection and isolation panelProBarnesville Hospital SystemDo you belong to any clubs or organizations such as anglican groups, unions, fraternal or athletic groups, or school groups?NoPKettering Health Greene Memorial SystemAre you now , , , , never or living with a partner?Living with partnerSt. Mary's Medical Center SystemHow often to you have a drink containing alcohol?Monthly or lessProBarnesville Hospital SystemHow many standard drinks containing alcohol do you have on a typical day?1 or 2PKettering Health Greene Memorial SystemHow often do you have 6 or more drinks on 1 occasion?NeverProEncompass Health Rehabilitation [facility] SystemHow hard is it for you to pay for the very basics like food, housing, medical care, and heatingNot hard at allProBarnesville Hospital SystemDo you feel stress - tense, restless, nervous, or anxious, or unable to sleep at night because yourmind is troubled all the time - these days [OSQ]To some extent [facility] whodoyou SystemStart: 01-84-5638Cmvaukelo76WhqPvagfx Health SystemStart: 42-81-5988Hotqpuw CommentOccasionallySt. Mary's Medical Center SystemStart: 10-09-2014 Lluvia (finding)[facility] SystemStart: 09-12-2022 End: 09-02-2322Tekztqq use and exposureUser of smokeless tobaccoPike Community HospitalHow hard is it for you to pay for the very basics like food, housing, medical care, and heatingNot very hardPike Community Hospital Medical Equipment Procedure CodeEquipment CodeEquipment Original TextEquipment IdentifierDates [id number]: [id number]_sieRutzy: [id number]: 90-06-2320Bqepnee blood sugars twice [id number]: Lancet by miscellaneous route in the morning.[id number]: 79-15-2751Wqixfc 1 Pen Needle under the skin in the morning and 1 Pen Needle before bedtime.[id number]: 11-30-2023 End: Pen Needle by miscellaneous route in the morning.[id number] Start: 05-05-2023 End: 11-83-1036izo 1 PEN NEEDLE to inject MEDICATION subcutaneously as directed [id number]: 10-02-2023 End: 39-95-3555Narpsp 1 Pen Needle under the skin nightly.[id number]: 11-27-2023 End: 78-99-9428FAW DIRECTED SUBCUTANEOUSLY (UNDER THE SKIN) [id number] Start: 11-27-2023 End: 07-63-2343Lfolzinu Drug Eluting [id number]: 07-25-2022 Clinical Notes 09-12-2021 to 12-30-2024 Note Date & EcazBfbjIxekggqa75-13-9756 History of Present illness Narrative* Sheng Buckner APRN-JOSE - 12/30/2024 2:15 PM EDT IM PROGRESS NOTE Patient - Elias Walker Age - 39 y.o. - 1985 ASSESSMENT & PLAN 1. Loose stools -refill - loperamide (IMODIUM) 2 mg capsule; Take 1 capsule (2 mg total) by mouth 4 (four) times a day as needed for diarrhea. Dispense: 30 capsule; Refill: 0 2. Moderate episode of recurrent major depressive disorder ([facility]) -depression well controlled. -PHQ9 screen negative. - cariprazine (VRAYLAR) 1.5 mg capsule; Take 1 capsule (1.5 mg total) by mouth every morning. TAKE 1 CAPSULE BY MOUTH IN THE MORNING Dispense: 30 capsule; Refill: 5 3. Primary hypertension (Primary) -normotensive - lisinopriL (PRINIVIL,ZESTRIL) 5 mg tablet; Take 1 tablet (5 mg total) by mouth in the morning. Dispense: 90 tablet; Refill: 1 4. Type 2 diabetes mellitus with stage 3 chronic kidney disease and hypertension ([facility]) -reviewed previous A1c from endocrinology in November was 6.7. - POCT Hemoglobin A1c 5. Screen for STD (sexually transmitted disease) (Primary) - partner positive for Trichomonas - no intercourse since partner tested positive - Trichomonas by PCR; Future - Chlamydia/Gonorrhoeae by PCR, Urine; Future 6. Class 3 severe obesity due to excess calories with serious comorbidity and body mass index (BMI)of 40.0 to 44.9 in adult ([facility]) Body mass index is 43.87 kg/m . Weight change: weight loss of 21 lb over the last 10 months Patient noted to have elevated BMI and the following intervention(s) were applied: -Discussed current weight today. -Consider healthy food choices, portion control. -Avoid sugary beverages and high concentrated sweets. -Routine exercise regimen encouraged. Subjective The following portions of the patient's history were reviewed and updated as appropriate: allergies, current medications, past family history, past medical history, past social history, past surgicalhistory and problem list. States his girlfriend tested positive for trichomonas and he wants to be tested as well. They have not been sexually active for lately. She is getting treated. He follows with endocrinology for diabetes management. He is seeing nephrology for CKD 3B. DIABETIC VISIT This is a follow up of a pre-existing problem. Patient self monitoring includes Using CGM only. Patient experiences hypoglycemia None. Patient symptoms of hyperglycemia include: none. Current prescribed diet is fairly healthy diet with limited sugars and fats. Patient is following the prescribed diet plan. Home activity includes: The patient does not participate in regular exercise at present.. Patient does not experience numbness or burning in their hands or feet. Patient does not have vision changes. Last eye exam was: over 1 year ago. Plans to schedule another visit. Patient BP monitoring is done sporadically, and can't recall values. Patient reports: taking medications as instructed, no medication side effects noted, no chest pain on exertion, no dyspnea on exertion, no swelling of ankles, no orthostatic dizziness or lightheadedness, no palpitations, and no intermittent claudication symptoms Issues affecting compliance with diabetic self management include: none Review of Systems Constitutional: Negative for activity change, appetite change, chills, diaphoresis, fatigue and fever. HENT: Negative for tinnitus and trouble swallowing. Eyes: Negative for visual disturbance. Respiratory: Negative for cough, chest tightness, shortness of breath and wheezing. Cardiovascular: Negative for chest pain, palpitations and leg swelling. Gastrointestinal: Negative for abdominal pain, diarrhea, nausea and vomiting. Genitourinary: Negative for difficulty urinating, dysuria, flank pain, frequency, genital sores, hematuria, penile discharge, penile pain, penile swelling, scrotal swelling, testicular pain and urgency. Skin: Negative for rash. Neurological: Negative for dizziness, syncope, speech difficulty, weakness, light-headedness, numbness and headaches. Psychiatric/Behavioral: Negative for sleep disturbance. Exam BP 132/82 (BP Site: Left Arm, BP Postition: Sitting, BP CUFF SIZE: L (13-17 inches)) Pulse 96 Temp 36.1 C (97 F) (Tympanic) Resp 18 Ht 165.1 cm (5' 5 ) Wt 119.6 kg (263 lb 9.6 oz) SpO2 95% BMI 43.87 kg/m Physical Exam Vitals and nursing note reviewed. Constitutional: General: He is not in acute distress. Appearance: He is obese. HENT: Right Ear: Tympanic membrane normal. Left Ear: Tympanic membrane normal. Mouth/Throat: Mouth: Mucous membranes are moist. Cardiovascular: Rate and Rhythm: Normal rate and regular rhythm. Pulses: Normal pulses. Pulmonary: Effort: Pulmonary effort is normal. Breath sounds: Normal breath sounds. Musculoskeletal: Cervical back: Normal range of motion. Right lower leg: No edema. Left lower leg: No edema. Skin: General: Skin is warm and dry. Capillary Refill: Capillary refill takes less than 2 seconds. Neurological: General: No focal deficit present. Mental Status: He is alert and oriented to person, place, and time. Psychiatric: Mood and Affect: Mood normal. Behavior: Behavior normal. Meds Current Outpatient Medications: alcohol swabs (ALCOHOL PREP PADS) pads, medicated, Apply 1 Pad topically in the morning and at bedtime., Disp: 100 each, Rfl: 6 aspirin 81 mg, Take 1 tablet (81 mg total) by mouth in the morning., Disp: , Rfl: atorvastatin (LIPITOR) 80 mg tablet, TAKE 1 TABLET BY MOUTH NIGHTLY, Disp: 90 tablet, Rfl: 0 BD ULTRA-FINE MICRO PEN NEEDLE 32 gauge x 1/4 needle, , Disp: , Rfl: blood sugar diagnostic (glucose blood) strip, Monitor blood sugars twice daily, Disp: 60 strip, Rfl: 6 blood-glucose meter (glucose monitoring kit) kit, Use as instructed, Disp: 1 each, Rfl: 0 blood-glucose meter,continuous (DEXCOM G7 PROPELLER DRIVEN AIRPLANE MECHANIC) misc, 1 Device by miscellaneous route in the evening., Disp: , Rfl: blood-glucose sensor (DEXCOM G7 SENSOR) device, 1 each by miscellaneous route every 10 days., Disp:, Rfl: cetirizine (ZyrTEC) 10 mg tablet, TAKE 1 TABLET BY MOUTH IN THE MORNING, Disp: 30 tablet, Rfl: 6 clopidogreL (PLAVIX) 75 mg tablet, Take 1 tablet (75 mg total) by mouth in the morning., Disp: , Rfl: dapagliflozin propanediol (FARXIGA) 10 mg tablet, take 1 tablet by mouth every morning, Disp: 90 tablet, Rfl: 1 dulaglutide (TRULICITY) 1.5 mg/0.5 mL pen injector, Inject 1.5 mg under the skin every 7 days. (Patient taking differently: Inject 3 mg under the skin every 7 days.), Disp: 2 mL, Rfl: 4 EYE ITCH RELIEF 0.025 % (0.035 %) ophthalmic solution, INSTILL 1 DROP INTO BOTH EYES TWICE A DAY ASDIRECTED, Disp: , Rfl: FLUoxetine (PROzac) 20 mg capsule, Take 1 capsule (20 mg total) by mouth in the morning., Disp: 90 capsule, Rfl: 1 fluticasone propionate (FLONASE) 50 mcg/actuation nasal spray, Administer 2 sprays into each nostril in the morning., Disp: 15.8 mL, Rfl: 6 lancets (TRUEPLUS LANCETS) 33 gauge misc, 1 Lancet by miscellaneous route in the morning., Disp: 90each, Rfl: 1 metoprolol tartrate (LOPRESSOR) 25 mg tablet, Take 1 tablet (25 mg total) by mouth in the morning and 1 tablet (25 mg total) before bedtime., Disp: , Rfl: cariprazine (VRAYLAR) 1.5 mg capsule, Take 1 capsule (1.5 mg total) by mouth every morning. TAKE 1 CAPSULE BY MOUTH IN THE MORNING, Disp: 30 capsule, Rfl: 5 insulin glargine (LANTUS SOLOSTAR U-100 INSULIN) 100 unit/mL (3 mL) insulin pen, Inject 80 Units under the skin nightly., Disp: 15 mL, Rfl: 6 lancets (accu-chek soft touch) misc, Monitor blood sugars twice daily (Patient not taking: Reportedon 12/30/2024), Disp: 100 each, Rfl: 6 lisinopriL (PRINIVIL,ZESTRIL) 5 mg tablet, Take 1 tablet (5 mg total) by mouth in the morning., Disp: 90 tablet, Rfl: 1 loperamide (IMODIUM) 2 mg capsule, Take 1 capsule (2 mg total) by mouth 4 (four) times a day as needed for diarrhea., Disp: 30 capsule, Rfl: 0 Lab Results No visits with results within 1 Month(s) from this visit. Latest known visit with results is: Lab on 11/14/2024 Component Date Value Ref Range Status CHOLESTEROL 11/14/2024 150 150 - 200 mg/dL Final TRIGLYCERIDE 11/14/2024 244 (H) 27 - 150 mg/dL Final HDL CHOLESTEROL 11/14/2024 29 (L) >39 mg/dL Final LDL (CALC) 11/14/2024 72 <130 mg/dL Final CHOLESTEROL:HDL 11/14/2024 5.2 (H) 1.0 - 5.0 Final VERY LOW LIPOPROTEIN 11/14/2024 49 (H) 0 - 30 mg/dL Final WBC 11/14/2024 7.9 4 - 11 x10E9/L Final RBC Count 11/14/2024 5.59 4.1 - 5.7 X10E12/L Final Hemoglobin 11/14/2024 16.1 13 - 17 g/dL Final Hematocrit 11/14/2024 48.8 39 - 50 % Final MCV 11/14/2024 87 80 - 100 fL Final MCH 11/14/2024 28.7 27 - 34 pg Final MCHC 11/14/2024 32.9 32 - 36 g/dL Final RDW 11/14/2024 13.9 11.5 - 15 % Final Platelet Count 11/14/2024 203 150 - 450 X10E9/L Final MPV 11/14/2024 9.1 7 - 12 fL Final Neutrophils % 11/14/2024 57.3 % Final Lymphocytes % 11/14/2024 31.7 % Final Monocytes % 11/14/2024 9.8 % Final Eosinophils % 11/14/2024 0.8 % Final Basophils % 11/14/2024 0.4 % Final Neutrophils Absolute (A) 11/14/2024 4.6 1.5 - 6.6 10*3/uL Final Lymphocytes Absolute 11/14/2024 2.5 1.0 - 3.5 10*3/uL Final Monocytes Absolute 11/14/2024 0.8 0.0 - 0.9 10*3/uL Final Eosinophils Absolute 11/14/2024 0.1 0.0 - 0.4 10*3/uL Final Basophils Absolute 11/14/2024 0.0 0.0 - 0.2 10*3/uL Final Differential Type 11/14/2024 AUTOMATED DIFFERENTIAL Final CREATININE 11/14/2024 2.90 (H) 0.60 - 1.30 mg/dL Final EGFR Non-Race Dependent 11/14/2024 27 (L) >=60 ml/min/1.73sq.m Final Other Testing No results found. Return in about 6 months (around 06/30/2025) for htn. SSA Liz [facility] Hospital[facility] Office: [phone] This note is dictated with the use of M*Modal. Please note that this dictation was completed with computer voice recognition software. Quite often unanticipated grammatical, syntax, homophones, and other interpretive errors are inadvertently transcribed by the computer software. Please disregard these errors. Please excuse any errors that have escaped final proofreading. VANESSA Urrutia 12/30/24 1452 documented in this encounterPike Community Hospital09-11-2025 NoteREASON FOR VISIT: Elias Walker is a 39 [...] Diabetes education: [YES] Seen by a certified professional controller (CDE) within 12 months : February 2024 Meal plan: [YES] Seen by a fiberglass ski maker within 12 months [] Consistent carbohydrate diet [...] [] [] Depression [] [] Patient seeing nutter up/ marketing reps sports and entertainment regularly [x] [] Last exam date: 2023 Last exam results: Patient seeing dentist regularly [] [x] Patient seeing all around patternmaker regularly [] [x] Last exam date: Last [...] sensation [] [] LABS: Recent Data from [facility] Related to POCT Hemoglobin A1c Component 06/10/24 [...] -- -- Total bilirub (more content not included)...[facility] 10-02-2024 Telephone encounter Note* Telephone Encounter - Laney Snell - 10/02/2024 1:30 PM EDT P/c spoke with pt relayed message that Dr. Conrad did not accept him as [facility]. [facility] [id number] Miscellaneous Notes* Telephone Encounter - Laney Snell - 10/02/2024 1:30 PM EDT P/c spoke with pt relayed message that Dr. Conrad did not accept him as new pt. documented in this encounterSalem Memorial District [id number] Miscellaneous Notes* Telephone Encounter - Princess Grier CMA - 08/09/2024 11:42 AM EDT [facility] called and said pt's insurance will only cover the Imodium capsules, so they were wondering if you could change RX to capsules. Thank you. documented in this encounterP[facility]06-[facility] Telephone encounter Note* Telephone Encounter - Princess Grier CMA - 08/09/2024 11:42 AM EDT [facility] called and said pt's insurance will only cover the Imodium capsules, so they were wondering if you could change RX to capsules. Thank you. [facility]06-05[facility] Miscellaneous Notes* Telephone Encounter - Princess Grier CMA - 08/08/2024 4:52 PM EDT Pt called in requesting a script for Imodium. Thank you. * Telephone Encounter - VANESSA Taylor - 08/08/2024 4:52 PM EDT Done documented in this encounterPike [facility] Hospital06-05-2025 Telephone encounter Note* Telephone Encounter - Princess Grier CMA - 08/08/2024 4:52 PM EDT Pt called in requesting a script for Imodium. Thank you. [facility] Telephone encounter Note* Telephone Encounter - VANESSA Taylor - 08/08/2024 4:52 PM EDT Done [facility] Miscellaneous Notes* Telephone Encounter - Marzena Vega CMA - 07/09/2024 4:48 PM EDT Pt called stated he took his last dose of trulicity he stated he thinks you were going to up the dose ? If so can you can send in a refill? documented in this encounterPike [facility]05-06-2025 Telephone encounter Note* Telephone Encounter - Marzena Vega CMA - 07/09/2024 4:48 PM EDT Pt called stated he took his last dose of trulicity he stated he thinks you were going to up the dose ? If so can you can send in a refill? [facility]04[facility] History of Present illness Narrative* VANESSA Taylor - 06/10/2024 2:40 PM EDT Images from the original note were not included. [address] [place] [address] SUBJECTIVE: Patient ID: Elias Walker is [...] unable to obtain Victoza due to backorder regulatory coordinator status. This has been occurring for over [...] are no diabetic associated symptoms. Pertinent negatives fordiabetes include no chest pain, no fatigue, no polydipsia, no polyphagia and no polyuria. There areno hypoglycemic complications. Symptoms are stable. There are no diabetic complications. Risk factors for coronary artery disease include diabetes mellitus, dyslipidemia, family history, hypertension, male sex, obesity and sedentary lifestyle. Current diabetic treatment includes oral agent (monotherapy) and insulin injections. He is compliant with treatment most of the time. His weight is stable.He is following a generally unhealthy diet. He participates in exercise intermittently. His home blood glucose trend is fluctuating dramatically. His breakfast blood glucose range is generally 180-200 mg/dl. His lunch blood glucose range is generally 180-200 mg/dl. His dinner blood glucose range isgenerally >200 mg/dl. His bedtime blood glucose range [...] past medical history, past social history, past surgicalhistory and problem list. Past Surgical History: Procedure [...] and the following intervention(s) were applied: encouragement toexercise. Physical Exam Vitals and nursing note reviewed. [...] microalbuminuria, without long-term current use of insulin ([facility]) Anxiety and depression - FLUoxetine (PROzac) 20 mg capsule; Take 1 capsule (20 mg total) by mouth in the morning. Type 2 diabetes mellitus with stage 3 chronic kidney disease and hypertension ([facility]) - dapagliflozin propanediol (FARXIGA) 10 mg tablet; take 1 tablet by mouth every morning Uncontrolled type 2 diabetes mellitus with hyperglycemia ([facility]) - POCT Hemoglobin A1c - dulaglutide (TRULICITY) 0.75 mg/0.5 mL pen injector; Inject 0.5 mL (0.75 mg total) under the skinevery 7 days. - insulin glargine (LANTUS SOLOSTAR [...] VANESSA Taylor 06/10/24 1531 documented in this encounterPike [facility] Hospital02-16-2025 Miscellaneous Notes* Telephone Encounter - Alesia Edmonds RN - 04/21/2024 2:12 PM EST ----- Message from Joie sent at 04/21/2024 1:49 PM EST ----- Contract: Ronnie Roe is out of his insulin and needs a refill * Telephone Encounter - Alesia Edmonds RN - 04/21/2024 2:12 PM EST Contract: Ronnie Ran out of insulin due to dosage changed-Lantus , has been out a few days Pharmacy will not refill medication because they need an updated order for Lantus [facility] Reason for Disposition [1] Prescription refill request for ESSENTIAL medicine (i.e., likelihood of harm to patient if not taken) AND [2] triager unable to refill per department policy Protocols used: Medication Refill and Renewal Call-A-AH * Telephone Encounter - Alesia Edmonds RN - 04/21/2024 2:12 PM EST OC provider updated on change needed for Lantus prescription -per pharmacy still reflecting the oldorder of 35 units, not 70 units, informed will call pharmacy * Telephone Encounter - Alesia Edmonds RN - 04/21/2024 2:12 PM EST Informed OC provider will call pharmacy and update order, Verbalized understanding, PCP called for prescription refill for essential medication documented in this encounterPike [facility] Hospital02-16-2025 Telephone encounter Note* Telephone Encounter - Alesia Edmonds RN - 04/21/2024 2:12 PM EST ----- Message from Joie sent at 04/21/2024 1:49 PM EST ----- Contract: Ronnie Roe is out of his insulin and needs a refill [facility]02-[facility] Telephone encounter Note* Telephone Encounter - Alesia Edmonds RN - 04/21/2024 2:12 PM EST Contract: 198 Ran out of insulin due to dosage changed-Lantus , has been out a few days Pharmacy will not refill medication because they need an updated order for Lantus [facility] Reason for Disposition [1] Prescription refill request for ESSENTIAL medicine (i.e., likelihood of harm to patient if not taken) AND [2] triager unable to refill per department policy Protocols used: Medication Refill and Renewal Call-A-AH [facility] whodoyou [id number] Telephone encounter Note* Telephone Encounter - Alesia Edmonds RN - 04/21/2024 2:12 PM EST OC provider updated on change needed for Lantus prescription -per pharmacy still reflecting the oldorder of 35 units, not 70 units, informed will call pharmacy [facility] Telephone encounter Note* Telephone Encounter - Alesia Edmonds RN - 04/21/2024 2:12 PM EST Informed OC provider will call pharmacy and update order, Verbalized understanding, PCP called for prescription refill for essential medication [facility]01-[facility] NoteHistory Of Present Illness Elias Walker is a 38 y.o. male is [...] 3 weeks and was discontinued by his director of design. Calcium abnormality related symptoms and history Constitutional [...] [] 4+ Relaxation p (more content not included)...[facility] 02-29-2024 History of Present illness Narrative* Jose Khanna, KENNETH-DB2 DEVELOPER - 02/29/2024 3:20 PM EST Images from the original note were not included. [address] [place] [address] SUBJECTIVE: Patient ID: Elias Walker is a 38 y.o. male. Chief Complaint Patient presents with Diabetes Been running high. 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 He was previously taking Trulicity which did not improve his A1c readings. Is currently taking Lantus 35units nightly and Farxiga 10 mg oral daily. Has chronic CKD which is managed by Dr. Serrano, nephrology. The following portions of the patient's history were reviewed and updated as appropriate: allergies, current medications, past family history, past medical history, past social history, past surgicalhistory and problem list. Past Surgical History: Procedure [...] and the following intervention(s) were applied: encouragement toexercise. Physical Exam Vitals and nursing note reviewed. [...] microalbuminuria, without long-term current use of insulin ([facility]) - POCT Hemoglobin A1c Uncontrolled type 2 diabetes mellitus with hyperglycemia ([facility]) - tirzepatide (MOUNJARO) 7.5 mg/0.5 mL pen injector; Inject 7.5 mg under the skin every 7 days. Type 2 diabetes mellitus with stage 3 chronic kidney disease and hypertension ([facility]) - tirzepatide (MOUNJARO) 7.5 mg/0.5 mL pen injector; Inject 7.5 mg under the skin every 7 days. Type 2 DM Today A1c 8.4%. Was 7.5% Blood sugars started to trend upwards approximately 2-3 weeks ago. Average has been mid to higher 200's per day. States he has been unable to obtain Victoza due to backorder regulatory coordinator status. He was previously taking -Trulicity which [...] VANESSA Taylor 02/29/24 1620 documented in this encounterPike Community Hospital12-10-2024 History of Present illness Narrative* ANKIT Krishnamurthy - 02/13/2024 10:30 AM EST OUTPATIENT NUTRITION CONSULTATION- ADULT Date: 02/13/24 Time [...] 9.6 oz) 12/31/23 127.9 kg (282 lb) [place] Body Weight [place] body weight: 61.5 kg (135 lb 9.3 oz) Adjusted ideal body weight: 87.7 kg (193 lb 5.6 oz) Lab Results: POCT A1c Lab Results Component Value Date LOKACII6B 7.5 (A) 11/23/2023 A1c Lab Results Component [...] lunch meal, and dinner maybe out at [place] restaurants or food at home. He does consume a lot of zero pepsi for a beverage. Admits to having a big sweet tooth for desserts. His significant other isworried about controlling the K+ in his diet [...] instead) Diagnosis: Excessive carbohydrate intake, Overweight/obesity, and Nqsj-ohm-tumcjvkvs-related knowledge deficit Related to Jowk-sbs-upbqmnilp-related knowledge deficit As evidenced by Estimated energy [...] discussed/given to count carbs, Avoid sugar sweetened beverages,Exercise for 150 minutes per week, Monitors portions, and Label reading Follow-Up Plan No return appointment scheduled. Department phone number provided for questions after session. Roslyn Blancas RD., LD. [facility] documented in this encounterTriHealth Good Samaritan HospitalOcean's Halo [id number] Miscellaneous Notes* Telephone Encounter - Cande Ndiaye - 01/16/2024 9:52 AM EST We received a referral for education for Elias Walker 1985. However per [facility] Guidelines the services requested need to be ordered by an MD or DO. Please see pended order and have MD/DO sign if agreeable. Thank you [facility] * Telephone Encounter - Jose Khanna APRN-JOSE - 01/16/2024 9:52 AM EST I printed the requisition. Dr. Campos signed the order. What is the number to fax? * Telephone Encounter - Cande Ndiaye - 01/16/2024 9:52 AM EST [phone]. Thank you. * Telephone Encounter - Cande Ndiaye - 01/16/2024 9:52 AM EST We received your fax, but there are no services requested (MNT or DSMT), and there is no signature.I pended an order to the original message. It might be easier to have an MD/DO just sign it in [facility]. * Telephone Encounter - Cande Ndiaye - 01/16/2024 9:52 AM EST Spoke with Vivien at 's office. She requested that I fax a blank referral form to her so she can have Dr. Campos fill out and sign. Form faxed. * Telephone Encounter - Cande Ndiaye - 01/16/2024 9:52 AM EST Order faxed by documented in this encounterPike [facility] Hospital11-12-2024 Telephone encounter Note* Telephone Encounter - Cande Ndiaye - 01/16/2024 9:52 AM EST We received a referral for education for Elias Walker 1985. However per [facility] Guidelines the services requested need to be ordered by an MD or DO. Please see pended order and have MD/DO sign if agreeable. Thank you [facility]11-12-2024 Telephone encounter Note* Telephone Encounter - VANESSA Taylor - 01/16/2024 9:52 AM EST I printed the requisition. Dr. Campos signed the order. What is the number to fax? [facility]11-12-[facility] Telephone encounter Note* Telephone Encounter - Cande Ndiaye - 01/16/2024 9:52 AM EST [phone]. Thank you. [facility]11-12-[facility] Telephone encounter Note* Telephone Encounter - Cande Ndiaye - 01/16/2024 9:52 AM EST We received your fax, but there are no services requested (MNT or DSMT), and there is no signature.I pended an order to the original message. It might be easier to have an MD/DO just sign it in [facility]. [facility]11-12-[facility] Telephone encounter Note* Telephone Encounter - Cande Ndiaye - 01/16/2024 9:52 AM EST Spoke with Vivien at MD's office. She requested that I fax a blank referral form to her so she can have Dr. Campos fill out and sign. Form faxed. [facility] Telephone encounter Note* Telephone Encounter - Cande Ndiaye - 01/16/2024 9:52 AM EST Order faxed by [facility] History of Present illness Narrative* Jose Khanna, KENNETH-DB2 DEVELOPER - 01/16/2024 8:40 AM EST Images from the original note were not included. [address] [facility] [id number] SUBJECTIVE: Patient ID: Elias Walker [...] past medical history, past social history, past surgicalhistory and problem list. Past Surgical History: Procedure [...] and the following intervention(s) were applied: encouragement toexercise. Physical Exam Vitals and nursing note reviewed. [...] microalbuminuria, without long-term current use of insulin ([facility]) - insulin detemir U-100 (LEVEMIR FLEXPEN) 100 unit/mL (3 mL) insulin pen; Inject 35 Units under theskin nightly. - Ambulatory referral to Individual Nutrition Education; Future Currently his blood sugar is 198 fasting per DEXCOM monitor. Average A1c is 8.9% over past 14 days.Denies any recent diet changes. Relates he is [...] VANESSA Taylor 01/16/24 0917 documented in this encounterRutland Regional Medical CenterHaloband10-27-2024 Miscellaneous Notes* Telephone Encounter - Ryan Siddiqi RN - 12/31/2023 11:58 AM EDT ----- Message from Joie sent at 12/31/2023 11:47 AM EDT ----- Contract: 198 Juan sugar is 372 and last night it was over 400 he feels fine other then sleeping * Telephone Encounter - Ryan Siddiqi RN - 12/31/2023 11:58 AM EDT OC198 Reports BG is elevated. Began yesterday afternoon. Current BG is 373. Does not check ketones.Dx with Diabetes 2 years ago.Only takes Levimir, no coverage. Not ill, no fever. Eating has not changed. No vomiting, does report his mouth feels very dry. Advised to go to ER for further evaluation/treatment Reason for Disposition [1] Vomiting AND [2] signs of dehydration (e.g., very dry mouth, lightheaded, dark urine) Protocols used: Diabetes - High Blood Sugar-A-AH documented in this encounterPike [facility] Hospital10-27-2024 Telephone encounter Note* Telephone Encounter - Ryan Siddiqi RN - 12/31/2023 11:58 AM EDT ----- Message from Joie sent at 12/31/2023 11:47 AM EDT ----- Contract: 198 Juan sugar is 372 and last night it was over 400 he feels fine other then sleeping [facility]10-[facility] Telephone encounter Note* Telephone Encounter - Ryan Siddiqi RN - 12/31/2023 11:58 AM EDT OC198 Reports BG is elevated. Began yesterday afternoon. Current BG is 373. Does not check ketones.Dx with Diabetes 2 years ago.Only takes Levimir, no coverage. Not ill, no fever. Eating has not changed. No vomiting, does report his mouth feels very dry. Advised to go to ER for further evaluation/treatment Reason for Disposition [1] Vomiting AND [2] signs of dehydration (e.g., very dry mouth, lightheaded, dark urine) Protocols used: Diabetes - High Blood Sugar-A-AH [facility]09-25-2024 Miscellaneous Notes* Telephone Encounter - Zenaida Mayer CMA - 11/29/2023 3:54 PM EDT Pt called to ask if the wording can be changed on the prescription so that he can get them refilledsooner. Current prescription states daily. The pharmacy currently can't refill until 12/14/2023 dueto how the prescription is worded. Pt states that he is using 2 daily instead of 1. This is for pt's pen needle, diabetic (unifine pentips) 31 gauge x 1/4'' needle. * Telephone Encounter - VANESSA Taylor - 11/29/2023 3:54 PM EDT Done * Telephone Encounter - Zenaida Mayer CMA - 11/29/2023 3:54 PM EDT Relayed to pt. Verbalizes understanding. documented in this encounterPike Community Hospital09-25-2024 Telephone encounter Note* Telephone Encounter - Zenaida Mayer CMA - 11/29/2023 3:54 PM EDT Pt called to ask if the wording can be changed on the prescription so that he can get them refilledsooner. Current prescription states daily. The pharmacy currently can't refill until 12/14/2023 dueto how the prescription is worded. Pt states that he is using 2 daily instead of 1. This is for pt's pen needle, diabetic (unifine pentips) 31 gauge x 1/4'' needle. [facility]-25-[facility] Telephone encounter Note* Telephone Encounter - VANESSA Taylor - 11/29/2023 3:54 PM EDT Done [facility] Tele[facility] encounter Note* Telephone Encounter - Zenaida Mayer CMA - 11/29/2023 3:54 PM EDT Relayed to pt. Verbalizes understanding. [facility]09-19-[facility] History of Present illness Narrative* VANESSA Taylor - 11/23/2023 3:20 PM EDT Images from the original note were not included. [address] [facility] [id number] SUBJECTIVE: Patient ID: Elias Walker is a [...] type 2 diabetes mellitus. His disease course hasbeen improving. Pertinent negatives for hypoglycemia include no [...] He rarely participates in exercise. Is not checkinghis blood sugars. An TYRON inhibitor/angiotensin II receptor ubaldo is being taken. He does not see a all around patternmaker. Eye exam is not current. Hypertension This [...] improvement. Hypertensive end-organ damage includes kidney disease, CAD/NE, CVA and heart failure. Identifiable causes of [...] past medical history, past social history, past surgicalhistory and problem list. Past Surgical History: Procedure [...] and the following intervention(s) were applied: encouragement toexercise. Physical Exam Vitals and nursing note reviewed. [...] microalbuminuria, without long-term current use of insulin ([facility]) - POCT Hemoglobin A1c - liraglutide (VICTOZA 3-ALICE) 0.6 mg/0.1 mL (18 mg/3 mL) pen injector; Week one, administer 0.6 mg daily. Week two, administer 1.2 mg daily, then on week three, increase to 1.8 mg daily. - insulin detemir U-100 (LEVEMIR FLEXPEN) 100 unit/mL (3 mL) insulin pen; Inject 20 Units under theskin nightly. - Lipid panel; Future Moderate episode of recurrent major depressive disorder ([facility]) - cariprazine (VRAYLAR) 1.5 mg capsule; Take [...] stage 3 chronic kidney disease and hypertension ([facility]) - dapagliflozin propanediol (FARXIGA) 10 mg tablet; take 1 tablet by mouth every morning Anxiety and depression - FLUoxetine (PROzac) 20 mg capsule; Take 1 capsule (20 mg total) by mouth in the morning. Comprehensive diabetic foot examination, type 2 DM, encounter for ([facility]) Other orders - lisinopriL (PRINIVIL,ZESTRIL) 5 mg [...] VANESSA Taylor 11/23/23 1610 documented in this encounterPike Community Hospital07-31-2024 History of Present illness Narrative* VANESSA Taylor - 10/04/2023 3:00 PM EDT CGM Application Instructed patient and his girlfriend, Nicolle on how to apply the Dexcom 7. Nicolle states that she understands and I have instructed them if they need to come back they can for his next application. VANESSA Taylor 10/04/23 1719 documented in this encounterPike [facility] Hospital07-28-2024 Miscellaneous Notes* Telephone Encounter - VANESSA Linton - 10/01/2023 9:18 AM EDT refill documented in this encounterPike Community Hospital07-28-2024 Telephone encounter Note* Telephone Encounter - VANESSA Linton - 10/01/2023 9:18 AM EDT refill [facility] History of Present illness Narrative* VANESSA Taylor - 09/20/2023 3:00 PM EDT Images from the original note were not included. [address] [place] [address] SUBJECTIVE: Patient ID: Elias Walker is a 38 y.o. male. Chief Complaint Patient presents with lump under right arm Presents with mild erythema and what he describes as a lump under right axilla. Onset was this pastweek. No alleviating methods tried. The following portions of the patient's history were reviewed and updated as appropriate: allergies, current medications, past family history, past medical history, past social history, past surgicalhistory and problem list. Past Surgical History: Procedure [...] and the following intervention(s) were applied: encouragement toexercise. Physical Exam Vitals and nursing note reviewed. [...] VANESSA Taylor 09/25/23 1012 documented in this encounterTriHealth Good Samaritan HospitalOcean's Halo [id number] Miscellaneous Notes* Telephone Encounter - Gladys Veras - 07/25/2023 11:09 AM EDT Called to reschedule 10/17 appointment documented in this encounterPike [facility] Hospital05-21-2024 Telephone encounter Note* Telephone Encounter - Gladys Veras - 07/25/2023 11:09 AM EDT Called to reschedule 10/17 appointment [facility] History of Present illness Narrative* Jose Khanna, KENNETH-JOSE - 07/18/2023 10:20 AM EDT Images from the original note were not included. [address] [facility] [id number] SUBJECTIVE: Patient ID: Elias [...] type 2 diabetes mellitus. His disease course hasbeen improving. Pertinent negatives for hypoglycemia include no [...] the time. His weight is decreasing steadily. Heis following a generally healthy, diabetic and low fat/cholesterol diet. Meal planning includes avoidance of concentrated sweets and carbohydrate counting. He rarely participates in exercise. Is not checking his blood sugars. An TYRON inhibitor/angiotensin II receptor ubaldo is being taken. He does not see a all around patternmaker. Eye exam is not current. Hypertension This [...] obesity and sedentary lifestyle. Past treatments include YTRON inhibitors, beta blockers and calcium channel blockers. The current treatment provides significant improvement. Hypertensive end-organ damage includes kidney disease, CAD/NE, CVA and heart failure. Identifiable causes of [...] past medical history, past social history, past surgicalhistory and problem list. Past Surgical History: Procedure [...] and the following intervention(s) were applied: encouragement toexercise. Physical Exam Vitals and nursing note reviewed. [...] microalbuminuria, without long-term current use of insulin ([facility]) - POCT Hemoglobin A1c - semaglutide (OZEMPIC) 0.25 mg or 0.5 mg(2 mg/1.5 mL) pen injector; Inject 0.5 mg under the skin every 7 days. - insulin detemir U-100 (LEVEMIR FLEXPEN) 100 unit/mL (3 mL) insulin pen; Inject 20 Units under theskin nightly. Primary hypertension Current moderate episode of major depressive disorder without prior episode ([facility]) Mixed hyperlipidemia A1c 8.2%, was 7.3 Discontinue [...] VANESSA Taylor 07/18/23 1214 documented in this encounterPike [facility] Hospital04-22-2024 History of Present illness Narrative* Yuli Patel CMA - 06/26/2023 10:45 AM EDT Pt came in to be observed as to how to put Dexcom patch on. Significant other was taught also and it was uploaded the day of visit. documented in this encounterPike Community Hospital04-10-2024 History of Present illness Narrative* VANESSA Taylor - 06/14/2023 1:30 PM EDT This patient was in today for application of his Dexcom and instructions on apply them at home. Nicolle, his girl friend, was here with him so she can administer this at home. VANESSA Taylor 06/19/23 1745 documented in this encounterPike Community Hospital03-26-2024 Miscellaneous Notes* Telephone Encounter - Marzena Vega CMA - 05/30/2023 1:13 PM EDT Pt's girlfriend called wondering how long it was going to take to get his dexcom in or if its the insurance holding it up ? * Telephone Encounter - VANESSA Taylor - 05/30/2023 1:13 PM EDT Vivien- do you know any information in regards to this? * Telephone Encounter - Vivien Rooney CMA - 05/30/2023 1:13 PM EDT I sent an email to Joe at [facility] to find out what is going on. * Telephone Encounter - Marzena Vega CMA - 05/30/2023 1:13 PM EDT Thank you ladies * Telephone Encounter - Vivien Rooney CMA - 05/30/2023 1:13 PM EDT I called April and she did not get the fax. I just sent the fax to her again * Telephone Encounter - Kelsy Alex - 05/30/2023 1:13 PM EDT Maite called back confirming receipt of the latest scan. She just needed his insurance info which I provided. [facility]* Telephone Encounter - Marzena Vega CMA - 05/30/2023 1:13 PM EDT Pt's girlfriend called wondering how long it was going to take to get his dexcom in or if its the insurance holding it up ? [facility] Tele[facility] encounter Note* Telephone Encounter - VANESSA Taylor - 05/30/2023 1:13 PM EDT Vivien- do you know any information in regards to this? [facility] Tele[facility] encounter Note* Telephone Encounter - Vivien Rooney CMA - 05/30/2023 1:13 PM EDT I sent an email to Joe ying [facility] to find out what is going on. [facility] Telephone encounter Note* Telephone Encounter - Marzena Vega CMA - 05/30/2023 1:13 PM EDT Thank you ladies [facility] Tele[facility] encounter Note* Telephone Encounter - Vivien Rooney CMA - 05/30/2023 1:13 PM EDT I called April and she did not get the fax. I just sent the fax to her again [facility] whodoyou [id number] Telephone encounter Note* Telephone Encounter - Kelsy Alex - 05/30/2023 1:13 PM EDT Maite called back confirming receipt of the latest scan. She just needed his insurance info which I provided. [facility] whodoyou [id number] History of Present illness Narrative* Jose Khanna APRN-DB2 DEVELOPER - 05/10/2023 1:40 PM EST Images from the original note were not included. [address] [facility] [id number] SUBJECTIVE: Patient ID: Elias Walker is a [...] and obesity. Current diabetic treatments: Farxiga, Trulicity, Levimir.He is compliant with treatment all of the time. His weight is stable. He is following a generally he althy diet. Diabetic meal planning: He is working [...] past medical history, past social history, past surgicalhistory and problem list. Past Surgical History: Procedure [...] and the following intervention(s) were applied: encouragement toexercise. Physical Exam Vitals and nursing note reviewed. [...] episode of recurrent major depressive disorder (CMS-HCC) - cariprazine (VRAYLAR) 1.5 mg capsule; Take [...] visit Dexcom set up VANESSA Taylor 05/10/23 1653 documented in [facility] encounterP[facility]03[facility] History of Present illness Narrative* VANESSA Linton - 05/09/2023 6:52 PM EST After hours on-call service states that patient [...] not rapidly drop his blood sugar. If hedoes have signs and symptoms of hypoglycemia he may 30 g of carbs and recheck his blood sugar. Patient has an upcoming appointment with his PCP in 2 days. VANESSA Linton 05/09/23 0298 documented in this encounterP[facility]03[facility] History of Present illness Narrative* Tereza Carrera, MANAGER MANAGED BACKUP SERVICES-DB2 DEVELOPER - 05/05/2023 9:10 AM EST [address] [place] [address] Patient: Elias Walker Date of : 1985 Encounter Date: 05/05/2023 History of Present Illness: The patient is a 37 y.o. male, an established patient, and is here for Chief Complaint Patient presents with Diabetes Sugar been [id number] . HPI This pt is new to me, his PCP was unavailable. Medical history reviewed with pt, he has partial recall memory of his extensive medical history/confirmed most with chart. Pt brought his FBG log in and[place] of his sugars are >250 with several over 300 for last X 2wks. He is experiencing polydipsia, fatigue and blurry vision. Patient has had a 6 lb weight loss in the last few weeks. Patient recently underwent parathyroid/thyroidectomy surgery in March and had follow- up with Endocrine surgery 2 days ago. He [...] function. Patient has been afraid to drink toomuch so has been denying himself excess fluids due to worrying about having low-sodium. He also sees a director of design and he has undergone a CABG about 7 months ago he thinks. He does not recall any recent follow-up with Cardiology. Problem List Items Addressed This Visit Endocrine Type 2 diabetes mellitus with microalbuminuria, without long-term current use of insulin ([facility]) - Primary Relevant Medications insulin detemir U-100 (LEVEMIR FLEXPEN) 100 unit/mL (3 mL) insulin pen Other Visit Diagnoses Fasting hyperglycemia Past Medical, Family, and Social History Update: The following portions of the patient's history were reviewed and updated as appropriate: allergies, current medications, past family history, past medical history, past social history, past surgicalhistory and problem list. Past Medical History: Diagnosis Date Asthma Hypertension MRSA (methicillin resistant staph aureus) culture positive 2016 Priapism Shortness of breath Past Surgical History: [...] nasal spray Administer 2 sprays into each nostrilin the morning. 15.8 mL 6 lancets (accu-chek soft touch) misc Monitor blood sugars twice daily 100 each [...] microalbuminuria, without long-term current use of insulin ([facility]) Fasting hyperglycemia Other orders - insulin detemir U-100 (LEVEMIR FLEXPEN) 100 unit/mL (3 mL) insulin pen; Inject 10 Units under theskin nightly. - pen needle, diabetic 31 gauge x 1/4 needle; 1 Pen Needle by miscellaneous route in the morning. - lancets (TRUEPLUS LANCETS) 33 gauge misc; 1 Lancet by miscellaneous route in the morning. Follow-up: Since blood sugars are acutely high, we will start basal insulin. Patient can start at 10 units perday and increase by 3 units every 3 days if FBG >250. These directions were reviewed and writtendown for pt. He should stay well hydrated as his director of design does not have him on a fluid [...] hypoglycemia which were reviewed today - he wasgiven more lancets if he needs to do this. If he needs teaching on how to use his insulin pen or inject, he is to go to his pharmacist for instruction though technique was reviewed in office today. 36 min spent with pt today >50% on education. TEREZAVANESSA VEGA APRN-CNP 05/08/23 0930 documented in this encounterPike [facility]02-14-[facility]24 History of Present illness Narrative* Jose Khanna, VANESSA - 04/19/2023 9:00 AM EST Images from the original note were not included. [address] [place] [address] SUBJECTIVE: Patient ID: Elias Walker is a [...] type 2 diabetes mellitus. His disease course hasbeen improving. Pertinent negatives for hypoglycemia include no [...] the time. His weight is decreasing steadily. Heis following a generally healthy, diabetic and low fat/cholesterol diet. Meal planning includes avoidance of concentrated sweets and carbohydrate counting. He rarely participates in exercise. Is not checking his blood sugars. An TYRON inhibitor/angiotensin II receptor ubaldo is being taken. He does not see a all around patternmaker. Eye exam is not current. Hypertension This [...] improvement. Hypertensive end-organ damage includes kidney disease, CAD/NE, CVA and heart failure. Identifiable causes of [...] past medical history, past social history, past surgicalhistory and problem list. Past Surgical History: Procedure [...] and the following intervention(s) were applied: encouragement toexercise. Physical Exam Vitals and nursing note reviewed. [...] microalbuminuria, without long-term current use of insulin ([facility]) - dulaglutide 3 mg/0.5 mL pen injector; Inject 3 mg under the skin every 7 days. Type 2 diabetes mellitus with stage 3 chronic kidney disease and hypertension ([facility]) - dapagliflozin propanediol (FARXIGA) 10 mg tablet; [...] medications, tests, or procedures Follow-up: 3 months VANESSA Taylor 04/24/23 0935 documented in this encounterP[facility]01-[facility]24 History of Present illness Narrative* MAGUI Rockwell - 03/28/2023 10:10 AM EST Subjective Patient ID: Elias Walker is a [...] past medical history, past social history, past surgicalhistory, problem list, and medication reconciliation was completed including current medication andpost discharge medication. Review of Systems Constitutional: Negative. [...] MAGUI Rockwell 03/28/23 1131 documented in this encounterTriHealth Good Samaritan HospitalOcean's Halo [id number] History of Present illness Narrative* Jose Khanna, KENNETH-DB2 DEVELOPER - 03/08/2023 4:30 PM EST Images from the original note were not included. Chief Complaint Patient presents with Follow-up [address] [place] [address] SUBJECTIVE: Patient ID: Elias Walker is a 37 y.o. male. Chief Complaint Patient presents with Follow-up Presents for follow up States he recently had parathyroid removed in February due to hyperparathyroidism. Is recovering well. Moods have been more stable. Checks blood sugars when he remembers. Diabetes He presents for his initial diabetic visit. He has type 2 diabetes mellitus. His disease course hasbeen improving. Pertinent negatives for hypoglycemia include no [...] weight is decreasing steadily. He is following agenerally healthy, diabetic and low fat/cholesterol diet. Meal [...] being taken. He does not see a all around patternmaker.Eye exam is not current. Hypertension This is [...] improvement. Hypertensive end-organ damage includes kidney disease, CAD/NE, CVA and heart failure. Identifiable causes of [...] past medical history, past social history, past surgicalhistory and problem list. Past Surgical History: Procedure [...] and the following intervention(s) were applied: encouragement toexercise. Physical Exam Vitals and nursing note reviewed. [...] microalbuminuria, without long-term current use of insulin ([facility]) - POCT Hemoglobin A1c - dulaglutide (TRULICITY) [...] mouth nightly. Stage 3b chronic kidney disease ([facility]) A1c 7.3% Increase Trulicity to 1.5 mg [...] medications, tests, or procedures Follow-up: 3 months VANESSA Taylor 03/22/23 1032 documented in this encounterTriHealth Good Sam[facility] HospitalOcean's Halo [id number] Instructions* Patient Instructions* VANESSA Taylor - 03/08/2023 4:30 PM EST Are You Ready To Kick The Habit? Free Tobacco Cessation Resources [facility] Services [facility] provide all employees with free tobacco cessation services that include: Counseling to understand nicotine addiction Education about medications that can help you successfully quit Assistance with developing a plan to quit Call to set up an individual appointment or find out when group classes will be held: [facility]: [phone] [facility]: [phone] [facility]: [phone] [facility]: [phone] Quit Smoking Action Plan and Resources [facility] offers an eight-week, online smoking cessation plan to all [facility] employees, regardless of whether [employer] is your medical insurance provider. Go to www.Cookstr.org/employeewellness and click the Health Risk Assessment and Resources link to get started. In the YourPOV.TV menu, click Action Plans instead of Health Risk Assessment to access the Quit Smoking Action Plan. Additional smoking cessation resources are also available to all [facility] employees on the YourPOV.TV web page at www.HipLogic/quitsmoking. [employer] Tobacco Cessation Program If [employer] is your medical insurance provider, there are more free resources available to you, including: No copays or deductibles on local tobacco cessation counseling services to help you quit Prescription assistance for tobacco cessation medications to help you quit For details about the tobacco cessation program available to [employer] members, go to www.HipLogic (Search: Tobacco Cessation Program). [place] Tobacco Quit Line 5-947-GLJF-NOW ( ) is a toll-free, telephonic service that helps [place] residents quit smoking and using tobacco. It is staffed by experts who tailor a quit plan for you and provide you with advice. [place] Tobacco Quit Line 6-084-RYRN-NOW ( ) is a toll-free, telephonic service that helps [place] residents quit smoking and using tobacco. It is staffed by experts who tailor a quit plan for you and provide you with advice. Two weeks of nicotine replacement therapy may be provided at no charge, if needed. Additional Resources These national organizations also offer free information and resources to help you quit tobacco: [place] Cancer Society--www.cancer.org/healthy/stayawayfromtobacco [place] Heart Association--www.heart.org (Search: Quit Smoking) Centers for Disease Control and Prevention--www.cdc.gov/tobacco [place] Lung Association--www.lungusa.org * Attachments The following attachments cannot be sent through Care Everywhere. * Anxiety Discharge Instructions, Adult (Egyptian) documented in this encounterRutland Regional Medical CenterHaloband06-12-2023 History of Present illness Narrative* Elyse Arellano, PT - 08/15/2022 12:00 PM EDT Phase II Cardiac Rehab Individualized Treatment Plan [...] sets may be added. Education: [x] Equipment [place] [] Understanding BP [x] S/S to report [...] total fat, <10% saturated fat, 25-35 grams fiber,< 200mg cholesterol, balanced nutrition Intervention: [] Dietitian [...] Quality of Life/PHQ9 Intervention: [] Psych Consult/social studies teacher [] Physician Referral Medications: Prozac Education: [] Stress Management [] Depression Target Goal: -Assess presence or absence of depression using a valid screening tool. -Maximize coping skills. -Positive support system. Preventative Medication: [x] Anticoagulant/Antiplatelet/Aspirin [x] Betablocker /TYRON/ARB/Calcium channel ubaldo [x] Lipid [...] or other significant symptoms (shortness of breath, light- headedness, or dizziness at <5 METs or during recovery NE or cardiac surgery complicated by cardiogenic shock, CHF, and/or s/s of post- procedure ischemia Abnormal hemodynamics with exercise, especially flat or decreasing systolic BP or chronotropic incompetence with ^ workload Significant silent ischemia (ST depression >/= 2mm without symptoms with exercise or in recovery Signs/symptoms including angina, dizziness, light-headedness or dyspnea with low exercise levels stew recovery Clinically significant depression Physically Inactive - [...] resting or exercise induced complex dysrhythmias Uncomplicate NE, CABG, angioplasty, atherectomy, or stent Normal hemodynamic [...] perceived exertion between 11 and 16, duration of31 - 60 minutes using multiple exercise modes [...] appropriate, with a resistance of 40-60% 1-repetition maximumor 10 -15 repetitions to progressive overload and [...] weight over the next 30 days, utilizing insurance writer recommendations, moderating nutrional intake, and performing regular aerobic and strength training exercises as prescribed, as evidenced by pre- and post- program nutriton survey and routine rounding with patient, [...] over the next 30 days by educating patient,monitoring medication compliance, introducing and maintaining regular cardiovascular [...] as evidenced by routine rounding with patient. Continuesto vape. documented in this encounterBON ABRAZO CENTRAL CAMPUSMyTrade Phone: 1(111) 318-357005-15-2023 History of Present illness Narrative* Aaliyah Krishnamurthy RN - 07/18/2022 12:00 PM EDT Phase II Cardiac Rehab Individualized Treatment Plan [...] sets may be added. Education: [x] Equipment [place] [] Understanding BP [x] S/S to report [...] Quality of Life/PHQ9 Intervention: [] Psych Consult/social studies teacher [] Physician Referral Medications: Education: [] Stress Management [] Depression Target Goal: -Assess presence or absence of depression using a valid screening tool. -Maximize coping skills. -Positive support system. Preventative Medication: [x] Anticoagulant/Antiplatelet/Aspirin [x] Betablocker /TYRON/ARB/Calcium channel ubaldo [x] Lipid [...] or other significant symptoms (shortness of breath, light- headedness, or dizziness at <5 METs or during recovery NE or cardiac surgery complicated by cardiogenic shock, CHF, and/or s/s of post- procedure ischemia Abnormal hemodynamics with exercise, especially flat or decreasing systolic BP or chronotropic incompetence with ^ workload Significant silent ischemia (ST depression >/= 2mm without symptoms with exercise or in recovery Signs/symptoms including angina, dizziness, light-headedness or dyspnea with low exercise levels stew recovery Clinically significant depression Physically Inactive - [...] resting or exercise induced complex dysrhythmias Uncomplicate NE, CABG, angioplasty, atherectomy, or stent Normal hemodynamic [...] perceived exertion between 11 and 16, duration of31 - 60 minutes using multiple exercise modes [...] appropriate, with a resistance of 40-60% 1-repetition maximumor 10 -15 repetitions to progressive overload and [...] weight over the next 30 days utilizing insurance writer recommendations, including: Limit sodium to less than [...] in daily diet (whole wheat bread, buns, Egyptian muffins, brown rice, whole wheat pasta, etc.). [...] over the next 30 days by educating patient,monitoring medication compliance, introducing and maintaining regular cardiovascular exercise as evidenced by pre- and post- surveys and by routine rounding with patient. Denied ^ depressive symptomsand stress over the past 30 days. Demonstrate knowledge about risk factor reduction, lifestyle modification, and heart health strategies with a score of >=75% via education classes and counseling as evidenced by pre- and post-program education assessment screening tool. Participated in all education classes offered over the past30 days. Complete abstinence from tobacco products over the next 30 days through intensive counseling, behavior modification, and medication compliance as evidenced by routine rounding with patient. Continuedto vape over the past 30 days. documented in this encounterBON Logicalware Phone: 1(101) 164-967005-01-2023 History of Present illness Narrative* Emma Miramontes RD, ANKIT - 07/04/2022 12:00 PM EDT Cardiopulmonary Rehab Medical Nutrition Therapy Food Diary [...] crumbles consider having a small chocolate ice creamcone or ice cream in a dish without [...] in daily diet (whole wheat bread, buns, Egyptian muffins, brown rice, whole wheat pasta, etc.). [...] Recommendations are based on guidelines from the [place] Heart Association, [place] Diabetes Association and current literature. Feel free to call with questions or concerns [phone] or [phone], LD RDN, ANKIT documented in this encounterBON Logicalware Phone: 1(184) 738-306504-03-2023 History of Present illness Narrative* Uriel Grier MD - 06/06/2022 2:01 PM EDT Images from the original note [...] of 2.1 at admission and it went downand then went up postoperatively to 2.68 and [...] of the extremities. History of obesity with nobelly pain today. No nausea or vomiting. He [...] and hypertensive nephrosclerosis baseline creatinine of around 1.2-1.5mg/dl. Creatinine did get down to 1.4 on [...] urology appointment with Dr. Victoria in in [place] on 06/21/2022 and will follow-up about his renal cysts there. Plan: No changes in medication Stable for discharge from nephrology standpoint Come back to see [facility] [place] at our [place] office in 2 to 3 weeks. I did give the patient our office number to set that up. Nutrition Avoid nephrotoxic drugs/contrast exposure. . Uriel Grier MD Nephrology Attending Physician [facility] 06/06/2022 This note is created with the assistance of a speech-recognition program. While intending to generate a document that actually reflects the content of the visit, no guarantees can be provided that every mistake has been identified and corrected by editing. * Cameron Smith - 06/06/2022 12:32 PM EDT CLINICAL PHARMACY NOTE: MEDS TO BEDS Total # of Prescriptions Filled: 9 The following medications were delivered to the patient: Aspirin Atorvastatin Metoprolol Clopidogrel Percocet Pantoprazole Amiodarone Flomax miralax Additional Documentation: * Linda Alvarado RD - 06/06/2022 12:15 PM EDT Nutrition Assessment Type and Reason for Visit: [...] gm pro/day Weight Used for Protein Requirements: [place] Fluid (ml/day): per MD Method Used for [...] outpatient diabetes education Linda Alvarado RD Contact: [phone] * KENNETH Napier NP - 06/06/2022 12:06 PM EDT Images from the original note were not included. [address] Safety Engineer Progress Note Date: 06/04/2022 Patient name: Elias Walker Date of admission: 05/23/2022 12:00 PM Date of : 1985 PCP: Jose Khanna APRN - DB2 DEVELOPER Reason for Admission: NSTEMI (non-ST elevated myocardial [...] Summary: The study was performed by the Special Makeup Fx Artist Instructor, Cardiac Fellow, and the Plate Molder in the Software Quality Assurance Specialist without complications. Consent was obtained from the [...] evaluate. Can be done prior to discharge oras outpatient as patient leaning towards outpatient . [place] [facility] [employer] [facility] [phone] * ADDI Christensen - 06/05/2022 1:28 PM EDT Occupational Therapy Facility/Department: [place] [address] Occupational Daily Treatment Note Name: Elias Walker [...] chest tube Pain assessment: Pt c/o pain incision Pain intervention: Repositioned Subjective General Patient assessed for rehabilitation services?: Yes Family / Caregiver Present: No Safety Devices Type of Devices: All fall risk precautions in place;Call light within reach;Gait belt;Nurse notified;Left in chair Balance Sitting: Without support (Supervision seated in chair.) Standing: With support (CGA static standing at chair using RW, functional mobility to/from bathroomusing RW, simple grooming standing at sink. Total [...] agreeable to therapy. See above for LOF forall tasks. Pt retired to seated in chair at end of session with call light within reach. NATI Christensen/Divina * Lorna Moyer MD - 06/05/2022 12:16 PM EDT Images from the original note were not included. [address] [address] Safety Engineer Progress Note Date: 06/04/2022 Patient name: Elias Walker Date of admission: 05/23/2022 12:00 PM Date of : 1985 PCP: Jose Khanna APRN - DB2 DEVELOPER Reason for Admission: NSTEMI (non-ST elevated myocardial infarction) (HCC) [I21.4] Subjective: Seen and examined by bedside. [...] propofol Stopped (06/02/222212) dextrose CBC: Recent Labs 06/03/22 0421 06/04/22 0856 [...] Summary: The study was performed by the Special Makeup Fx Artist Instructor, Cardiac Fellow, and the Plate Molder in the Software Quality Assurance Specialist without complications. Consent was obtained from the [...] done prior to discharge or as outpatient [place] [facility] [employer] [phone] Attending Physician Statement I have discussed the case of Elias Walker including pertinent history and exam findings with thestudent/resident/fellow. I have seen and examined the patient and the salguero elements of the encounterhave been performed by me. I agree with the assessment, plan and orders as documented by the resident With changes made to the note. . [place] [facility] Safety Engineer [phone] * Eddie Machado, MANAGER MANAGED BACKUP SERVICES - [employer] - 06/05/2022 11:25 AM EDT [facility] Cardiothoracic Surgery Progress Note 06/05/2022 11:25 AM [...] ambulate TID today Plan for home with [facility]-cardiology to have follow up for stent to RCA in 4-6weeks 06-04-22 Please leave stone one more day Started flomax Nephrology following to assist with renal function-patient making normal UO. Nephrology to manage diuretics We will eval for Ct removal tomorrow AM Please continue with PT OT DC planning home with [facility] Cardiology-this patient will need stent to RCA KENNETH WILLINGHAM NP * LADONNA POSADA - 06/05/2022 9:29 AM EDT Physical Therapy Facility/Department: [facility] CAR 1- SICU Daily Treatment Note Name: Elias [...] 3L NC with frequent static standing rest periodsd/t endurance and SOB. Good use of heart [...] Home exercise program, Safety education & training, Patient/Car egiver education & training, Equipment evaluation, education, & [...] Group Co-treatment Time In 830 Time Out 09 Minutes 51 Timed Code Treatment Minutes: 49 Minutes LADONNA POSADA PTA * Bc Flood MD - 06/05/2022 9:26 AM EDT Images from the original note were not included. Renal Progress Note Patient : Elias Walker; 36 y.o. Location: [facility]/1015- Attending: Ariel Purdy MD Admit Date: 05/23/2022 [...] and hypertensive nephrosclerosis baseline creatinine of around 1.2-1.5mg/dl. Hypertension. Pressure is under good control Hypercalcemia: Last 3 calcium levels are within normal limits patient is not on Sensipar. History of proteinuria. HMost recent calcium is available from 06/02/2022 and 1.48. Patient is not on Sensipar diabetes type2. Ischemic cardiopathy with a EF of 35% as per 2D echo done in August 2021. For sleep apnea. History of CVA. Cystic appearing lesion measuring 3.0 cm in the right kidney as per renal ultrasound done on 05/23/2022. Patient does have an outpatient urology appointment with Dr. Victoria in in [place] on 06/21/2022 and will follow-up about his [...] has been identified and corrected by editing. * Berna VossADDI - 06/04/2022 3:25 PM EDT Occupational Therapy Facility/Department: [address] Occupational Daily Treatment Note Name: Elias Walker [...] dressing and adjustment of heart hugger with goodreturn. Multiple rest breaks needed throughout session d/t [...] lip breathing with good return. AM-PAC Score AM-[facility] Inpatient Daily Activity Raw Score: 16 (06/04/221527) [facility] Inpatient ADL T-Scale Score : 35.96 (06/04/22 152) ADL Inpatient CMS 0-100% Score: 53.32 (06/04/221527) [...] agreeable to therapy. See above for LOF forall tasks. Pt retired to seated in chair at end of session with chair alarm activated and call light within reach. FERNANDA Christensen * Eddie Machado, MANAGER MANAGED BACKUP SERVICES - [employer] - 06/04/2022 11:20 AM EDT [facility] Cardiothoracic Surgery Progress Note 06/04/2022 11:21 AM Surgeon: Surgeon CTS: Dr. Jasmyn ANN POD # 2 S/P: Cabg x 2 Subjective: Mr. Walker Pt shows no acute distress.resting in bed A&0x4. Objective: BP (!) 100/34 Pulse 91 Temp 97.7 F (36.5 C) (Oral) Resp 19 Ht 5' 4 (1.626 m) Wt 282 lb 3oz (128 kg) SpO2 94% BMI 48.44 kg/m [...] with PT OT DC planning home with [facility] Cardiology-this patient will need stent to RCA KENNETH WILLINGHAM NP * LADONNA POSADA - 06/04/2022 10:39 AM EDT Physical Therapy Facility/Department: [facility] CAR 1- SICU Daily Treatment Note Name: Elias [...] NC with frequent static standing rest periods d/tendurance, to monitor SpO2 and coughing episodes. Gait appears steady with L toe out due to leg length discrepancy. Chair follow used today. Good use of heart hugger with sit<>stand transfers and coughing. Pt demonstrates decreased balance, endurance, functional mobility, and strength. At this time skilled PT is needed to promote return to baseline function. pt does appear they will be safeto return home with supervision and OP PT. Therapy Prognosis: Good Activity Tolerance Activity Tolerance: Patient tolerated treatment well Plan Physcial Therapy Plan General Plan: 6-7 times per week Current Treatment Recommendations: Strengthening, ROM, Balance training, Functional mobility training, Endurance training, Transfer training, Neuromuscular re-education, Stair training, Gait training, Manual, Therapeutic activities, Home exercise program, Safety education & training, Patient/Car egiver education & training, Equipment evaluation, education, & procurement Safety Devices Type of Devices: All fall risk precautions in place, Call light within reach, Chair alarm in place,Nurse notified, Gait belt, Patient at risk for [...] Inpatient Mobility Raw Score : 17 (06/04/22 1028) AM-PAC Inpatient T-Scale Score : 42.13 (06/04/22 1028) Mobility Inpatient CMS 0-100% Score: 50.57 (06/04/22 1028) Mobility Inpatient CMS G-Code Modifier : CK (06/04/22 1028) Goals Short Term Goals Time Frame for [...] Treatment Minutes: 40 Minutes LADONNA POSADA PTA * Bc Flood MD - 06/04/2022 10:27 AM EDT Renal Progress Note Patient : Elias Walker; 36 y.o. Location: 1015/1015-01 Attending: Ariel Purdy MD Admit Date: 05/23/2022 Hospital Day: 12 Subjective: Patient seen and examined. Patient is just back from a walk with the help of physical therapist. Hestates that he is slowly improving. He continues [...] Continuous Infusions: sodium chloride 50 mL/hr at 06/03/2242 sodium chloride 25 mL/hr at 06/03/2242 propofol Stopped (06/02/222212) dextrose Input/Output: I/O last [...] and hypertensive nephrosclerosis baseline creatinine of around 1.2-1.5mg/dl. Hypertension. Pressure is under good control Morbid [...] urology appointment with Dr. Victoria in in [place] on 06/21/2022 and will follow-up about his [...] has been identified and corrected by editing. * Lorna Moyer MD - 06/04/2022 6:55 AM EDT Images from the original note were not included. [facility] [employer] Progress Note Date: 06/04/2022 Patient name: Elias Walker Date of admission: 05/23/2022 12:00 PM Date of : 1985 PCP: KENNETH Taylor CNP Reason for Admission: NSTEMI (non-ST elevated myocardial infarction) ([facility]) [I21.4] Subjective: Seen and examined by bedside [...] at 06/03/22 0043 propofol Stopped (06/02/223) dextrose CBC: Recent Labs 06/01/22 0219 06/01/22 [...] INR: Recent Labs 06/02/22 1835 06/03/22 0421 INR 1.3 1.1 EKG: Date: 05/24/22 Reading: Normal sinus rhythm Nonspecific ST and T wave abnormality Abnormal ECG When compared with ECG of 23-MAY-2022 13:07, No significant change was found LAST ECHO: Date: 09/02/2021 Findings Summary: The study was performed by the Special Makeup Fx Artist Instructor, Cardiac Fellow, and the Plate Molder in the Software Quality Assurance Specialist without complications. Consent was obtained from the [...] Ht 5' 4 (1.626 m) Wt 279 lb12.2 oz (126.9 kg) SpO2 97% BMI 48.02 [...] at this time, will follow and evaluate. [place] [employer] [phone] Attending Physician Statement I have discussed the case of Elias Walker including pertinent history and exam findings with thestudent/resident/fellow. I have seen and examined the patient and the salguero elements of the encounterhave been performed by me. I agree with the assessment, plan and orders as documented by the resident With changes made to the note. . [place] [facility] [employer] [phone] * Linda Garnica OT - 06/03/2022 4:20 PM EDT Occupational Therapy Facility/Department: [facility] CAR 1- SICU Occupational Therapy Initial Assessment Name: Elias Walker [...] Ambulation Assistance: Independent Transfer Assistance: Independent Active Assembler Tractor: Yes Mode of Transportation: [employer] Occupation: Unemployed Leisure & Hobbies: Eat, video [...] support, maintaining B UE support on RW throughout~3-4 min static pre mobility) Transfer Training Transfer [...] on sternal precautions and adherence during functional ADLtasks. Pt is expected to required Min A [...] Outcome: Verbalized understanding;Continued education needed AM-PAC Score AM-[facility] Inpatient Daily Activity Raw Score: 20 (06/03/221620) [facility] Inpatient ADL T-Scale Score : 42.03 (06/03/221620) ADL Inpatient [facility] 0-100% Score: 38.32 (06/03/221620) ADL Inpatient [facility] G-Code Modifier : CJ (06/03/221620) Goals Short Term Goals Time Frame for [...] Treatment Minutes: 23 Minutes Linda Garnica OTR/L * Talib Saldaña MD - 06/03/2022 3:53 PM EDT Renal Progress Note Patient : Elias Walker; 36 y.o. Location: [address] [place] [address] Attending: Ariel Purdy MD Admit Date: 05/23/2022 [...] calcium chloride IVPB OR calcium chloride IVPB, ipratropium- albuterol, albumin human, albumin human, glucose, dextrose bolus [...] Labs: Recent Labs 06/01/22 0219 06/01/22 0920 06/02/22183406/03/22 0421 WBC -- -- 11.9* 17.1* RBC [...] require staged PCI as CT surgery was unableto graft RCA. CKD 3 likely due to diabetic and hypertensive nephrosclerosis baseline creatinine of around 1.2-1.5mg/dl. Hypertension. Morbid obesity. History of proteinuria. History [...] neurology appointment with Dr. Victoria in in [place] on 06/21/2022 and will follow-up about his [...] cardiology note, would recommend holding off currently untilrenal function improves further, unless emergent. Check PVR and if greater than 250 cc, will require Stone catheter placement again and possible urology consult. BMP in a.m. as well. Will follow. Nutrition Please ensure that patient is on a renal diet/TF. Avoid nephrotoxic drugs/contrast exposure. Talib Saldaña MD [facility] [place] This note is created with the assistance of a speech-recognition program. While intending to generate a document that actually reflects the content of the visit, no guarantees can be provided that every mistake has been identified and corrected by editing. * Neeta Mascorro RN - 06/03/2022 3:20 PM EDT Stone was inserted and 350 immediately drained into stone bag. * Neeta Mascorro RN - 06/03/2022 3:[address] Saldaña nephrology, to check a PVR and if greater than [address] stone. However patient hasnot voided since stone removal. Bladder scan showed 25ml. Repair Mechanic updated Randy Machado NP and was toldto place stone. * Lorna Moyer MD - 06/03/2022 3:00 PM EDT Images from the original note were not included. [place] [facility] [employer] [facility] Progress Note Date: 06/03/2022 Patient name: Elias Walker Date of admission: 05/23/2022 12:00 PM Date of : 1985 PCP: Jose Khanna APRN - JOSE Reason for Admission: NSTEMI (non-ST elevated myocardial infarction) ([facility]) [I21.4] Subjective: Seen and examined by bedside [...] Recent Labs 06/01/22 0219 06/01/22 0920 06/02/22 18306/03/22 0421 WBC -- -- 11.9* 17.1* HGB -- 13.0 11.6* 11.8* PLT 216 -- 154 190 BMP: Recent Labs 06/02/22 0530 06/02/22 1819 06/02/22 18306/03/22 0421 NA 140 -- 138 139 K [...] Invalid input(s): LDLCALCU INR: Recent Labs 06/02/22 18306/03/22420 INR 1.3 1.1 EKG: Date: 05/24/22 Reading: Normal sinus rhythm Nonspecific ST and T wave abnormality Abnormal ECG When compared with ECG of 23-MAY-2022 13:07, No significant change was found LAST ECHO: Date: 09/02/2021 Findings Summary: The study was performed by the Special Makeup Fx Artist Instructor, Cardiac Fellow, and the Plate Molder in the Software Quality Assurance Specialist without complications. Consent was obtained from the [...] need nephrology clearance prior to possible intervention [place] [employer] [phone] Attending Physician Statement I have discussed the case of Elias Walker including pertinent history and exam findings with thestudent/resident/fellow. I have seen and examined the patient and the salguero elements of the encounterhave been performed by me. I agree with the assessment, plan and orders as documented by the resident With changes made to the note. . [place] [facility] [employer] [phone] * Юлия Peraza, PT - 06/03/2022 11:21 AM EDT Physical Therapy Facility/Department: [facility] 1- SICU Physical Therapy Initial Assessment Name: Elias Walker : 1985 Date of Service: 06/03/2022 Chief Complaint Patient presents with Chest Pain No longer has chest pain, presented to [facility] with chest pain Polydipsia S/p CABGx3 [...] Home exercise program, Safety education & training, Patient/Car egiver education & training, Equipment evaluation, education, & procurement Safety Devices Type of Devices: All fall risk precautions in place, Call light within reach, Chair alarm in place,Nurse notified, Gait belt, Patient at risk for [...] Ambulation Assistance: Independent Transfer Assistance: Independent Active Assembler Tractor: Yes Mode of Transportation: [employer] Occupation: Unemployed Leisure & Hobbies: Eat, video [...] the supervision of co-signing PT who agrees withall evaluation/treatment and documentation. * Lara Contreras APRN - JOSE - 06/03/2022 9:58 AM EDT [facility] Cardiothoracic Surgery Daily Progress Note Surgeon: Dr Ariel Purdy POD# 1 S/P : CORONARY ARTERY BYPASS X 2, ON PUMP, CESAR, [place] 360 Subjective: Mr. Walker is a 36 y.o. year-old male status post CABGx2 on 06/02/2022 Patient was seenand examined at bedside this morning without any complaints, drowsy. Vital Signs: BP 104/65 Pulse 83 Temp 98.2 F (36.8 C) Resp 16 Ht 5' 4 (1.626 m) Wt 279 lb12.2 oz (126.9 kg) SpO2 100% BMI 48.02 [...] 1.79* 1.87* 1.94* 2.15* PT/INR: Recent Labs 06/02/22183406/03/22420 PROTIME 15.8* 14.6 INR 1.3 1.1 APTT: [...] EVH sites: CDI Assessment & Plan: Mr. Walker is a 36 y.o. year-old [...] - Patient plan for home discharge Beta- Ublado: Yes Aspirin: Yes Lovenox: No GI: Yes Plavix: Yes Coumadin: No Statin: Yes TYRON: No VANESSA Ohara * Charmaine Trevino - 06/03/2022 9:38 AM EDT SPIRITUAL CARE DEPARTMENT - [facility] [place] Shift date: 06/03/22 Shift day: Monday Shift # 1 Room # 1015/1015-01 Name: Elias Walker Referral: nurse Admit Date & Time: 05/23/2022 12:00 PM Assessment: Elias Walker is a 36 y.o. male in the hospital recovering from surgery. Hhas responded to patient's room per Spiritual Consult for 'post-surgical support'. Hhas was welcomed into the room by patient and his girlfriend (Nicolle). The patient was sitting up in a chair, and his girlfriend was moving around the room. Hhas observed patient to be calm, his girlfriend to be anxious, and both to be coping well. Intervention: Repair Mechanic introduced self and title as neurodiagnostic tech Repair Mechanic offered space for the patient and his girlfriend to express feelings, needs, and concerns and provided a ministry presence. Through conversation, neurodiagnostic tech learned that patient's girlfriend may need assistance with Home Away From Home in the future; she will communicate need to nurse/s and neurodiagnostic tech/s when/if need arises. Hhas provided a non-anxious presence, practiced active listening, and offered a blessing of peace. Outcome: Patient and his girlfriend seemed receptive to neurodiagnostic tech presence and expressed gratitude for neurodiagnostic tech visit. Plan: Chaplains will remain available to [...] Outcome Receptive;Expressed Gratitude . Spiritual Care Department [facility] [phone] * Patricio Adame RCP - 06/03/2022 1:29 AM EDT Order obtained for extubation. SpO2 of 98 on 40% FiO2. Patient extubated and placed on 3 liters/min via nasal cannula. Post extubation SpO2 is 98% with HR 74 bpm and RR 20 breaths/min. Patient had strong cough that was non-productive. Extubation Well tolerated by patient.. Breath Sounds: clear Patricio Adame RCP 1:29 AM * Neeta Mascorro RN - 06/02/2022 7:37 PM EDT Patient to room at 1755, placed on monitor, all lines transduced. Report given at bedside. * Sarwat Preciado MD - 06/02/2022 9:31 AM EDT Renal Progress Note Patient : Elias Walker; 36 y.o. Location: Attending: Solange Mercer MD Admit Date: 05/23/2022 Hospital Day: 10 Subjective: Patient seen and examined. Awake and alert. No acute events overnight noted. Patient denies any newsymptoms. Have some ankle edema. Plan for CABG [...] and hypertensive nephrosclerosis baseline creatinine of around 1.2-1.5mg/dl. Hypertension. Morbid obesity. History of proteinuria. History [...] neurology appointment with Dr. Victoria in in [place] on 06/21/2022 and will follow-up about his renal cysts there. Plan: Start him on Cinacalcet for hypercalcemia/hyperparathyroidism. Continue monitor strict I's and O's and renal function. need to be on small dose of diuretic postoperatively cleared for CABG from nephrology standpoint Will follow. Daily bmp Nutrition Please ensure that patient is on a renal diet/TF. Avoid nephrotoxic drugs/contrast exposure. Sarwat Preciado MD Internal Medicine Resident PGY 3 [facility] [place] 06/02/2022, 9:31 AM This note is created with the assistance of a speech-recognition program. While intending to generate a document that actually reflects the content of the visit, no guarantees can be provided that every mistake has been identified and corrected by editing. * Solange Mercer MD - 06/02/2022 8:29 AM EDT Images from the original note were not included. [facility] Office: [phone] Sony Raymond DO, Brodie Campos, DO, Skip Diggs, DO, Rubén Swain, DO, Lee Ann Saldaña MD, Love Cortez MD, Sultana Harley MD, Solange Mercer MD, Augusto Santizo MD, Lukas Angulo MD, Avelino KentDO, Yanelis Grijalva MD, Fly Zapata DO, Jeaneth Begum MD, John Ricks MD, Madison Raymond DO, Nasra Schulte MD, Alessio Bhat MD, Eddie Rader DO, Tiara Ladd MD, Emma Arnold MD, Meghann Cooper MD, Michele Hardin MD, Jerry Davis DO, Justin Gaines MD, Mayra Chicas, DB2 DEVELOPER, Riri Serna, DB2 DEVELOPER, Desire Harley, DB2 DEVELOPER, Ariel Stewart, DB2 DEVELOPER, Jennifer Magaña, UMESH, Patricia Harrington, DB2 DEVELOPER, Pauline Charles, DB2 DEVELOPER, Kelli Sarah DB2 DEVELOPER, Elizabeth Cummings DB2 DEVELOPER, Karlie Kenney, DB2 DEVELOPER, ALESSANDRA CarterC, Sherron Ngo, LABORER AIRPORT MAINTENANCE, Nyasia Lea, DB2 DEVELOPER, Ivonne Alicea, DB2 DEVELOPER [facility] IN-PATIENT SERVICE [facility] Progress Note 06/02/2022 8:30 AM Name: Elias Walker Acct: [id number] Room: Day: 10 Admit Date: 05/23/2022 12:00 PM PCP: KENNETH Taylor CNP Code Status: Full Code Subjective: C/C: Chief Complaint Patient presents with Chest Pain No longer has chest pain, presented to [facility] with chest pain Polydipsia Interval History [...] notes were reviewed,from overnight shift and morning updateswere noted and discussed with the nurse Brief [...] calcium carbonate, fluticasone, sodium chloride flush, sodium chloride,glucose, dextrose bolus OR dextrose bolus, glucagon (rDNA), [...] C) Recent Labs 06/01/22 1102 06/01/22 1559 06/01/22203406/02/22 0708 POCGLU 234* 193* 232* 90 I/O (24Hr): Intake/Output Summary (Last 24 hours) at 06/02/2022 0830 Last data filed at 06/02/2022 0606 Gross per 24 hour Intake 360 ml Output 950 ml Net -590 ml Labs: Hematology: Recent Labs 05/30/22 20306/01/22 0219 06/01/22 0920 WBC 9.9 -- -- [...] 10.0 10.6* 10.6* Recent Labs 05/30/22203105/31/22 0530 05/31/22 2042 06/01/22 0651 06/01/22 1102 06/01/22 1559 06/01/225 06/02/22 0708 LABA1C 10.1* -- -- -- -- [...] 05:30 AM PBEA 4 09/06/2021 04:41 AM [id number] 98 05/31/2022 05:30 AM FIO2 3.0 05/31/2022 [...] Yes Acute kidney injury superimposed on CKD (HCC) 05/31/2022 Yes NSTEMI (non-ST elevated myocardial infarction) ([facility]) 05/28/2022 Yes Morbid obesity ([facility]) 05/24/2022 Yes Anxiety 05/23/2022 Yes Allergic rhinitis 05/23/2022 Yes HHNC (hyperglycemic hyperosmolar nonketotic coma) ([facility]) 05/23/2022 Yes Essential hypertension 05/31/2022 Yes Overview Signed 09/28/2021 1:05 PM by Martin Serrano MD Blood pressures running in the [...] urology appointment with Dr. Victoria in in [place] on 06/21/2022 and will follow-up about his renal cysts there. Solange Mercer MD 06/02/2022 8:30 AM * Martha Lyman RN - 06/01/2022 10:00 PM EDT Pt. Up in bathroom washing with CHG, shaving of chest, bilateral arms, bilateral lower extremities completed per commercial loan underwriter at bedside. * KENNETH Baltazar CNP - 06/01/2022 11:20 AM EDT Images from the original note were not included. [facility] [address] Safety [employer] Progress Note Date: 06/01/2022 Patient name: Elias Walker Date of admission: 05/23/2022 12:00 PM Date of : 1985 PCP: Jose Khanna APRN - DB2 DEVELOPER Reason for Admission: NSTEMI (non-ST elevated myocardial infarction) ([facility]) [I21.4] Subjective: Clinical Changes /Abnormalities: Patient seen [...] Summary: The study was performed by the Special Makeup Fx Artist Instructor, Cardiac Fellow, and the Plate Molder in the Software Quality Assurance Specialist without complications. Consent was obtained from the [...] Nifedipine. No TYRON/ARB d/t CKD Will follow [place] [facility] [employer] [facility]. [phone] * Solange Mercer MD - 06/01/2022 10:10 AM EDT Images from the original note were not included. [facility] Office: [phone] Sony Raymond DO, Brodie Campos DO, Skip Diggs DO, Rubén Swain DO, Lee Ann Saldaña MD, Loev Cortez MD, Sultana Harley MD, Solange Mercer [...] Serna CNP, Desire Harley CNP, Ariel Stewart, JOSE, Jennifer Magaña, UMESH, Patricia Harrington, DB2 DEVELOPER, Pauline Charles, DB2 DEVELOPER, Kelli Sarah, DB2 DEVELOPER, Elizabeth Cummings, DB2 DEVELOPER, Karlie Kenney, JOSE, Ben Cesar PA-C, Sherron Ngo, LABORER AIRPORT MAINTENANCE, Nyasia Lea, JOSE, Ivonne Alicea, JOSE [facility] IN-PATIENT SERVICE [facility] Progress Note 06/01/2022 12:59 PM Name: Elias Walker Acct: [id number] Room: Day: 9 Admit Date: 05/23/2022 12:00 PM PCP: KENNETH Taylor CNP Code Status: Full Code Subjective: C/C: Chief Complaint Patient presents with Chest Pain No longer has chest pain, presented to [facility] with chest pain Polydipsia Interval History [...] notes were reviewed,from overnight shift and morning updateswere noted and discussed with the nurse Brief [...] calcium carbonate, fluticasone, sodium chloride flush, sodium chloride,glucose, dextrose bolus OR dextrose bolus, glucagon (rDNA), [...] 4 (1.626 m) Wt 281 lb 12 oz(127.8 kg) SpO2 96% BMI 48.36 kg/m Temp (24hrs), Av F (36.7 C), Min:97.9 F (36.6 C), Max:98.2 F (36.8 C) Recent Labs 05/31/22 1606 05/31/22204106/01/22 0651 06/01/22 1102 POCGLU 129* 195* 141* [...] 05:30 AM PBEA 4 09/06/2021 04:41 AM [id number] 98 05/31/2022 05:30 AM FIO2 3.0 05/31/2022 [...] Yes Acute kidney injury superimposed on CKD ([facility]) 05/31/2022 Yes NSTEMI (non-ST elevated myocardial infarction) ([facility]) 05/28/2022 Yes Morbid obesity ([facility]) 05/24/2022 Yes Anxiety 05/23/2022 Yes Allergic rhinitis 05/23/2022 Yes HHNC (hyperglycemic hyperosmolar nonketotic coma) ([facility]) 05/23/2022 Yes Essential hypertension 05/31/2022 Yes Overview Signed 09/28/2021 1:05 PM by Martin Serrano MD Blood pressures running in the [...] , continue gentle IV hydration status post heartcatheterization. DM 2 : new diagnosis for the [...] SO Solange Mercer MD 06/01/2022 12:59 PM * Donta Marcum MD - 06/01/2022 9:39 AM EDT Renal Progress Note Patient : Elias Walker; 36 y.o. Location: Attending: Solange Mercer MD Admit Date: 05/23/2022 Hospital Day: 9 Subjective: Patient seen and examined. Awake and alert. No acute events overnight noted. Patient denies any newsymptoms. Patient With surgery moved to . Hemodynamically [...] - 99 mg/dL 103 (H) CALCIUM, SERUM, [id number] 8.6 - 10.4 mg/dL 10.6 (H) (H): [...] and hypertensive nephrosclerosis baseline creatinine of around 1.2-1.5mg/dl. Hypertension. Morbid obesity. History of proteinuria. History [...] neurology appointment with Dr. Victoria in in [place] on 06/21/2022 and will follow-up about his renal cysts there. Plan: Continue current blood pressure medications. Continue monitor strict I's and O's and renal function. Labs reviewed, okay for surgery cleared for CABG from nephrology standpoint Start patient on Sensipar. Nutrition Please ensure that patient is on a renal diet/TF. Avoid nephrotoxic drugs/contrast exposure. Sarwat Preciado MD Internal Medicine Resident PGY 3 [facility] [place] 06/01/2022, 9:39 AM Attending Physician Statement I [...] and patient postoperatively. Donta Marcum MD , MD This note is created with the assistance of a speech-recognition program. While intending to generate a document that actually reflects the content of the visit, no guarantees can be provided that every mistake has been identified and corrected by editing. * Donta Marcum MD - 05/31/2022 9:51 AM EDT Renal Progress Note Patient : Elias Walker; 36 y.o. Location: Attending: Solange Mercer MD Admit Date: 05/23/2022 Hospital Day: 8 Subjective: Patient seen and examined. Awake and alert. No acute events overnight noted. Patient denies any newsymptoms. Plan for CABG today. Hemodynamically stable. On [...] No edema. Labs: Recent Labs 05/30/22 0725 05/30/222031 WBC -- [...] and hypertensive nephrosclerosis baseline creatinine of around 1.2-1.5mg/dl. Hypertension. Morbid obesity. History of proteinuria. History [...] neurology appointment with Dr. Victoria in in [place] on 06/21/2022 and will follow-up about his [...] Preciado MD Internal Medicine Resident PGY 3 [facility] [place] 05/31/2022, 9:54 AM Attending Physician Statement I [...] has been identified and corrected by editing. * Solange Mercer MD - 05/31/2022 9:10 AM EDT Images from the original note were not included. [facility] Office: [phone] Sony Raymond DO, Brodie Campos DO, Skip [...] Davis DO, Justin Gaines MD, Mayra Chicas, DB2 DEVELOPER, Riri Serna, DB2 DEVELOPER, Desire Harley, DB2 DEVELOPER, Ariel Stewart, DB2 DEVELOPER, Jennifer Magaña, UMESH, Patricia Harrington, DB2 DEVELOPER, Pauline Charles, DB2 DEVELOPER, Kelli Sarah, DB2 DEVELOPER, Elizabeth Cummings, DB2 DEVELOPER, Karlie Kenney, DB2 DEVELOPER, Ben Cesar PACarriC, Sherron Ngo, LABORER AIRPORT MAINTENANCE, Nyasia Lea, DB2 DEVELOPER, Ivonne Alicea, DB2 DEVELOPER [facility] IN-PATIENT SERVICE [facility] Progress Note 05/31/2022 4:17 PM Name: Elias Walker Acct: [id number] Room: Day: 8 Admit Date: 05/23/2022 12:00 PM PCP: KENNETH Taylor CNP Code Status: Full Code Subjective: C/C: Chief Complaint Patient presents with Chest Pain No longer has chest pain, presented to [facility] with chest pain Polydipsia Interval History Status: not changed. Patient seen and examined at bedside, no acute events overnight. Feeling about the same Per report scheduled for OR this am Patient denies any chest pain, shortness of breath, chills, fevers, nausea or vomiting. Patient vitals, labs and all providers notes were reviewed,from overnight shift and morning updateswere noted and discussed with the nurse Brief [...] calcium carbonate, fluticasone, sodium chloride flush, sodium chloride,glucose, dextrose bolus OR dextrose bolus, glucagon (rDNA), [...] Recent Labs 05/31/22 0530 05/31/22 0754 05/31/22 1102 05/31/22 1606 POCGLU 144* 134* 126* 129* I/O [...] 10.6* 10.0 Recent Labs 05/30/22 1637 05/30/22 1943 05/30/22 2032 05/31/22 0530 05/31/22 0754 05/31/22 1102 05/31/22 1606 LABA1C -- -- 10.1* -- -- -- -- POCGLU 276* 270* -- 144* 134* 126* 129* ABG: Lab Results Component Value Date/Time POCPH 7.315 05/31/2022 05:30 AM POCPCO2 47.3 05/31/2022 05:30 AM POCPO2 115.8 05/31/2022 05:30 AM POCHCO3 24.1 05/31/2022 05:30 AM NBEA 2 05/31/2022 05:30 AM PBEA 4 09/06/2021 04:41 AM [id number] 98 05/31/2022 05:30 AM FIO2 3.0 05/31/2022 [...] Yes Acute kidney injury superimposed on CKD ([facility]) 05/31/2022 Yes NSTEMI (non-ST elevated myocardial infarction) ([facility]) 05/28/2022 Yes Morbid obesity ([facility]) 05/24/2022 Yes Anxiety 05/23/2022 Yes Allergic rhinitis 05/23/2022 Yes HHNC (hyperglycemic hyperosmolar nonketotic coma) ([facility]) 05/23/2022 Yes Essential hypertension 05/31/2022 Yes Overview Signed 09/28/2021 1:05 PM by Martin Serrano MD Blood pressures running in the [...] patient. Solange Mercer MD 05/31/2022 4:17 PM * Talib Saldaña MD - 05/30/2022 3:47 PM EDT Renal Progress Note Patient : Elias Walker; [...] fluticasone, sodium chloride flush, sodium chloride, glucose, dextrosebolus OR dextrose bolus, glucagon (rDNA), dextrose, potassium chloride OR potassium alternative oral replacement OR potassium chloride, magnesium sulfate, acetaminophen OR acetaminophe n, nitroGLYCERIN, dextrose 5 % and 0.45 % [...] and hypertensive nephrosclerosis baseline creatinine of around 1.2-1.5mg/dl. Hypertension. Morbid obesity. History of proteinuria. History [...] neurology appointment with Dr. Victoria in in [place] on 06/21/2022 and will follow-up about his [...] exposure. Talib Saldaña MD [facility] [place] This note is created with the assistance of a speech-recognition program. While intending to generate a document that actually reflects the content of the visit, no guarantees can be provided that every mistake has been identified and corrected by editing. * Khanh Zapata RN - 05/30/2022 2:23 PM EDT Diabetes education - follow up VISIT at bedside 05/30/22 Elias Walker, follow up education on Type 2 uncontrolled,new dx. He stated family history of diabetes and aware of how to use home BG meter, used on self and with other family in past. He has helped with adm of insulins in past also. He trained at [facility] and has ability to read food labels, measure and CHO food group awareness. Update to plan for care includes patient will need OHS and plan for OR tomorrow and, With inpatientcare BG are at this point with lantus [...] meter - Demonstrated use of a meter foreducation and practice of BGSM skill 05/27/22 rs - patient stated confident will be able to use a home meter - will need RX at time of discharge home 05/30/22 rs 0 SO also has Dm and [...] follow up HCP appointments- stated Jose Khanna, MANAGER MANAGED BACKUP SERVICES 05/26/22 rs reinforced _x__ Medications - Insulin [...] [email or web address] _x__ Handout - Be safe with [place] teaching sheet - / [email or web address] _x__ Handout - How to Use an Insulin Pen - handout with QR code - whodoyou nielsen Current as of [id number] _x__ Emergency Insert sheet for your Vehicle - ADA Diabetes Emergencies _x__ Diabetes ID card - ADA Low and High Blood Sugar and treatments _x__ [employer] Diabetes Education brochure/ contact card Patient needs reinforcement. understanding of survival skills education, - discussed current insulin plans lantus at 30 units BID and pre meal correction on scale, patient did self adm insulin on 05/26/22 with bedside RN RECOMMENDATIONS INPATIENT PLAN: _x__ Composition Roofer Consult this admission for education on CHO [...] -up education at outpatient diabetes education at [facility]. An ordered is needed for this service and can be placed via EHR. Discharge Navigator ---Med Reconciliation -- New orders for discharge tab -- search diabetic ed - REF20 - [facility]- review and sign __x_ Follow -up with HCP / PCP within one week. Patient has established PCP KHANH ZAPATA RN CDCES * Avelino Kent DO - 05/30/2022 12:35 PM EDT Images from the original note were not included. [facility] Office: [phone] Sony Raymond DO, Brodie Campos DO, Skip Diggs DO, Rubén Swain DO, Lee Ann Saldaña MD, Love Cortez MD, Sultana Harley MD, Solange Mercer MD, Augusto Santizo MD, Lukas Angluo MD, Avelino Kent DO, Yanelis Grijalva MD, [...] Magaña, UMESH, Patricia Harrington CNP, Pauline Charles DB2 DEVELOPER, Kelli Sarah DB2 DEVELOPER, Elizabeth Cummings, DB2 DEVELOPER, Karlie Kenney DB2 DEVELOPER, Ben Cesar PA-C, Sherron Ngo, LABORER AIRPORT MAINTENANCE, Nyasia Lea, DB2 DEVELOPER, Ivonne Alicea, DB2 DEVELOPER [facility] IN-PATIENT SERVICE [facility] Progress Note 05/30/2022 12:35 PM Name: Elias Walker Acct: [id number] Room: IP Day: 7 Admit Date: 05/23/2022 12:00 PM PCP: KENNETH Taylor CNP Code Status: Full Code Subjective: C/C: Chief Complaint Patient presents with Chest Pain No longer has chest pain, presented to [facility] with chest pain Polydipsia Interval History [...] heparin (PORCINE) Infusion 7.9 Units/kg/hr (05/29/22 2030) PRN Meds: calcium carbonate, fluticasone, sodium chloride flush, sodium chloride, glucose, dextrosebolus OR dextrose bolus, glucagon (rDNA), dextrose, potassium chloride OR potassium alternative oral replacement OR potassium chloride, magnesium sulfate, acetaminophen OR acetaminophe n, nitroGLYCERIN, dextrose 5 % and 0.45 % [...] F (37 C) Recent Labs 05/29/22 1607 05/29/22 1959 05/30/22 0748 05/30/22 1152 POCGLU 303* 210* 158* 182* I/O (24Hr): Intake/Output Summary (Last 24 hours) at 05/30/2022 1235 Last data filed at 05/29/20221999 Gross per 24 hour Intake 360 ml Output -- Net 360 ml Labs: Hematology: Recent Labs 05/28/22 0422 05/30/22 0725 PLT 201 228 Chemistry: Recent Labs 05/28/22 0422 05/29/22 0553 NA 136 137 K 4.4 4.9 CL 107 107 CO2 19* 21 GLUCOSE 163* 184* BUN 16 15 CREATININE 1.41* 1.47* ANIONGAP 10 9 LABGLOM >60 >60 CALCIUM 10.0 10.6* Recent Labs 05/29/22 0639 05/29/22 1108 05/29/22 1607 05/29/22 1959 05/30/22 0748 05/30/22 1152 POCGLU 172* 235* 303* 210* 158* 182* ABG: Lab Results Component Value Date/Time POCPH 7.392 09/06/2021 04:41 AM POCPCO2 48.2 09/06/2021 04:41 AM POCPO2 98.0 09/06/2021 04:41 AM POCHCO3 29.3 09/06/2021 04:41 AM NBEA 2 09/03/2021 04:09 AM PBEA 4 09/06/2021 04:41 AM [id number] 98 09/06/2021 04:41 AM FIO2 40.0 09/06/2021 [...] Yes Acute kidney injury superimposed on CKD ([facility]) 05/28/2022 Yes NSTEMI (non-ST elevated myocardial infarction) ([facility]) 05/28/2022 Yes Morbid obesity ([facility]) 05/24/2022 Yes Anxiety 05/23/2022 Yes Allergic rhinitis 05/23/2022 Yes HHNC (hyperglycemic hyperosmolar nonketotic coma) ([facility]) 05/23/2022 Yes Primary hypertension 05/28/2022 Yes Overview Signed 09/28/2021 1:05 PM by Martin Serrano MD Blood pressures running in the [...] loss Avelino Kent DO 05/30/2022 12:35 PM * Juju Mishra RD, LD - 05/30/2022 11:49 AM EDT Comprehensive Nutrition Assessment Type and Reason for Visit: Initial (LOS) Nutrition Recommendations/Plan: Continue current diet. Monitor PO intakes as tolerated. Monitor need for additional Diabetic diet education. Nutrition Assessment: Chart reviewed/pt seen for length of stay. Admitted with c/o chest pain, polyuria, and increased thirst along with blood sugars greater than 1000 mg/dL. PMH: CKD, HTN. Newly diagnosed with DM - noteddiabetes educator providing education during admission. Pt reports having [...] Anthropometric Measures: Height: 5' 4 (162.6 cm) [place] Body Weight (IBW): 130 lbs (59 kg) [...] 2500 kcals/day Weight Used for Protein Requirements: [place] Protein (g/day): 100-130 gm pro/day Method Used [...] diabetes education Juju Mishra RD, ANKIT Contact: [phone] * KENNETH Napier NP - 05/30/2022 11:31 AM EDT Images from the original note were not included. [place] [facility] Progress Note Date: 05/30/2022 Patient name: Elias Walker Date of admission: 05/23/2022 12:00 PM Date of : 1985 PCP: Jose Khanna, MANAGER MANAGED BACKUP SERVICES - DB2 DEVELOPER Reason for Admission: NSTEMI (non-ST elevated myocardial infarction) (HCC) [I21.4] Subjective: Clinical Changes /Abnormalities: Patient seen [...] Summary: The study was performed by the Special Makeup Fx Artist Instructor, Cardiac Fellow, and the Plate Molder in the Software Quality Assurance Specialist without complications. Consent was obtained from the [...] Problems: NSTEMI. MVD as above HTN urgency ZOZIE on CKD3 Morbid obesity DM2 Patient Active [...] III (HCC) NSTEMI (non-ST elevated myocardial infarction) ([facility]) Hypertensive crisis Morbid obesity (HCC) Anxiety Allergic rhinitis HHNC (hyperglycemic hyperosmolar nonketotic coma) ([facility]) Plan of Treatment: Stable. Cath as above. Plans for CABG on Monday noted by CTS. Support provided. Continue ASA, statin ECHO as above. Preserved LVEF without significant valvular disease Continue Coreg and Nifedipine. No TYRON/ARB d/t CKD Will follow [place] [facility] [employer] [phone] * KENNETH Baltazar CNP - 05/29/2022 11:28 AM EDT Images from the original note were not included. [place] [facility] Progress Note Date: 05/29/2022 Patient name: Elias Walker Date of admission: 05/23/2022 12:00 PM Date of : 1985 PCP: KENNETH Taylor CNP Reason for Admission: NSTEMI (non-ST elevated myocardial infarction) ([facility]) [I21.4] Subjective: Clinical Changes /Abnormalities: Patient was [...] 7.9 Units/kg/hr (05/29/22 0650) CBC: Recent Labs 05/28/22 0422 PLT 201 BMP: Recent Labs 05/27/22 0607 05/28/22 0422 05/29/22 0553 NA 137 136 137 K 4.3 [...] Summary: The study was performed by the Special Makeup Fx Artist Instructor, Cardiac Fellow, and the Plate Molder in the Software Quality Assurance Specialist without complications. Consent was obtained from the [...] Resp 20 Ht 5' 4 (1.626 m) Wt283 lb 11.7 oz (128.7 kg) SpO2 96% [...] proteinuria CKD (chronic kidney disease), stage III ([facility]) NSTEMI (non-ST elevated myocardial infarction) ([facility]) Hypertensive crisis Morbid obesity (HCC) Anxiety Allergic rhinitis HHNC (hyperglycemic hyperosmolar nonketotic coma) ([facility]) Plan of Treatment: Stable. Cath as above. Plans for CABG on Monday noted by CTS. Support provided. Continue ASA, statin ECHO as above. Preserved LVEF without significant valvular disease BP with some improvement. Continue Coreg and will Nifedipine. No TYRON/ARB d/t CKD [place] [facility]. [phone] * Avelino Kent DO - 05/29/2022 11:15 AM EDT Images from the original note were not included. [facility] Office: [phone] Sony Raymond DO, Brodie Campos DO, Skip [...] Chicas CNP, Riri Serna CNP, Desire Harley DB2 DEVELOPER, Ariel Stewart DB2 DEVELOPER, Jennifer Magaña, UMESH, Patricia Harrington, DB2 DEVELOPER, Pauline Charles CNP, Kelli Sarah CNP, Elizabeth Cummings DB2 DEVELOPER, Karlie Kenney DB2 DEVELOPER, Ben Cesar PACarriC, Sherron Ngo, LABORER AIRPORT MAINTENANCE, Nyasia Lea, DB2 DEVELOPER, Ivonne Alicea, DB2 DEVELOPER [facility] IN-PATIENT SERVICE [facility] Progress Note 05/29/2022 11:15 AM Name: Elias Walker Acct: [id number] Room: IP Day: 6 Admit Date: 05/23/2022 12:00 PM PCP: KENNETH Taylor CNP Code Status: Full Code Subjective: C/C: Chief Complaint Patient presents with Chest Pain No longer has chest pain, presented to [facility] with chest pain Polydipsia Interval History [...] fluticasone, sodium chloride flush, sodium chloride, glucose, dextrosebolus OR dextrose bolus, glucagon (rDNA), dextrose, potassium chloride OR potassium alternative oral replacement OR potassium chloride, magnesium sulfate, acetaminophen OR acetaminophe n, nitroGLYCERIN, dextrose 5 % and 0.45 % [...] C) Recent Labs 05/28/22 1147 05/28/22 1559 05/28/22195605/29/22 0639 POCGLU 231* 254* 212* 172* I/O (24Hr): Intake/Output Summary (Last 24 hours) at 05/29/2022 1115 Last data filed at 05/29/2022 0845 Gross per 24 hour Intake 600 ml Output -- Net 600 ml Labs: Hematology: Recent Labs 05/28/22 0422 PLT 201 Chemistry: Recent Labs 05/27/22 0607 05/27/22 1222 05/28/222 05/29/22 0553 NA 137 -- 136 137 [...] 04:09 AM PBEA 4 09/06/2021 04:41 AM [id number] 98 09/06/2021 04:41 AM FIO2 40.0 09/06/2021 [...] Yes Acute kidney injury superimposed on CKD ([facility]) 05/28/2022 Yes NSTEMI (non-ST elevated myocardial infarction) ([facility]) 05/28/2022 Yes Morbid obesity ([facility]) 05/24/2022 Yes Anxiety 05/23/2022 Yes Allergic rhinitis 05/23/2022 Yes HHNC (hyperglycemic hyperosmolar nonketotic coma) ([facility]) 05/23/2022 Yes Primary hypertension 05/28/2022 Yes Overview Signed 09/28/2021 1:05 PM by Martin Serrano MD Blood pressures running in the [...] loss Avelino Kent DO 05/29/2022 11:15 AM * Lissette Salgado - 05/28/2022 9:09 PM EDT SPIRITUAL CARE DEPARTMENT - [facility] [place] Shift date: 05/28/2022 Shift day: Monday Shift # 3 Room # Name: Elias Walker Taoist: Non-Baptist Place of scientologist: Unknown Referral: Routine Visit Admit Date & Time: 05/23/2022 12:00 PM Assessment: Elias Walker is a 36 y.o. male in the hospital because of undergoing a Heart Catheterization. Per report, patient was found to need Open Heart Surgery. Patient was sitting up in hospital bed, when neurodiagnostic tech visited. Patient's girlfriend, Nicolle, was also present in room at time of visit. Intervention: Hhas visited per Spiritual Care Consult for Advance Directives. Repair Mechanic introduced self and title as neurodiagnostic tech. Hhas learned from patient that he will be undergoing Open Heart Surgery on Monday. Hhas learned from patient that he would like his girlfriend, Nicolle, named as his primarydecision maker, as his mother lives in [place]. Hhas assisted patient in completing Advance Directive documents and made copies for patient's girlfriend, as well as copies for patient's paper chart. Hhas returned patient's completed documents to patient in room. Outcome: Patient thanked neurodiagnostic tech for visit and care. Plan: Chaplains will [...] (comment) (as needed) . Spiritual Care Department [facility] [phone] * Avelino Kent DO - 05/28/2022 10:17 AM EDT Images from the original note were not included. [facility] Office: [phone] Sony Raymond DO, Brodie Campos DO, Skip Diggs DO, Rubén Swain DO, Lee Ann Saldaña MD, Love Cortez MD, Sultana Harley MD, Solange Mercer MD, Augusto Snatizo MD, Lukas Angulo MD, Avelino Kent DO, Yanelis Grijalva MD, Fly Zapata DO, Jeaneth Begum MD, John Ricks MD, Madison Raymond DO, Nasra Schulte MD, Alessio Bhat MD, Eddie Rader DO, Tiara Ladd MD, Emma Arnold MD, Meghann Cooper MD, Michele Hardin MD, Jennifer Guo MD, Jerry Davis DO, Justin Gaines MD, Loco Wilks MD, Mayra Chiacs, JOSE, Riri Serna CNP, Desire Harley CNP, Ariel Stewart CNP, Jennifer Magaña DNP, Patricia Harrington, DB2 DEVELOPER, Pauline Charles DB2 DEVELOPER, Kelli Sarah DB2 DEVELOPER, Elizabeth Cummings, DB2 DEVELOPER, Karlie Kenney, DB2 DEVELOPER, ALESSANDRA CarterC, Sherron Ngo, LABORER AIRPORT MAINTENANCE, Nyasia Lea, DB2 DEVELOPER, Ivonne Alicea, DB2 DEVELOPER [facility] IN-PATIENT SERVICE [facility] Progress Note 05/28/2022 10:17 AM Name: Elias Walker Acct: [id number] Room: IP Day: 5 Admit Date: 05/23/2022 12:00 PM PCP: KENNETH Taylor CNP Code Status: Full Code Subjective: C/C: Chief Complaint Patient presents with Chest Pain No longer has chest pain, presented to [facility] with chest pain Polydipsia Interval History [...] 04:09 AM PBEA 4 09/06/2021 04:41 AM [id number] 98 09/06/2021 04:41 AM FIO2 40.0 09/06/2021 [...] * (Principal) NSTEMI (non-ST elevated myocardial infarction) ([facility]) 05/23/2022 Yes Hypertensive crisis 05/23/2022 Yes OZZIE (acute kidney injury) ([facility]) 05/24/2022 Yes Morbid obesity ([facility]) 05/24/2022 Yes Anxiety 05/23/2022 Yes Allergic rhinitis 05/23/2022 Yes HHNC (hyperglycemic hyperosmolar nonketotic coma) ([facility]) 05/23/2022 Yes Hypertension, essential 05/24/2022 Yes Overview Signed 09/28/2021 1:05 PM by Martin Serrano MD Blood pressures running in the 140-150 systolic range Coronary artery disease of [place] artery of [place] heart with stable angina pectoris ([facility]) 05/27/2022 Yes Plan: NSTEMI with multivessel coronary [...] week Avelino Kent DO 05/28/2022 10:17 AM * Uriel Grier MD - 05/28/2022 9:47 AM EDT Nephrology Progress Note SUBJECTIVE Patient was seen and examined sitting in recliner. No acute events noted overnight. Patient underwent cardiac cath 05/26/22 which show multivessel coronary artery disease. LV gram showEF 60%. CABG now scheduled for Monday. Blood [...] dysfunction. Left ventricular is normal in size withincreased septal wall thickness. US renal 05/23/22 shows normal renal length and echotexture without obstruction. Right kidney measuring 10.2 cm and left kidney measuring 10.3 cm. Cystic- appearing lesion 3.0 cm within the right kidney. HPI: Presented with left-sided chest pain radiating to the left shoulder while the patient was at rest. He came in to the hospital with the chest pain and reportedly not well controlled hypertension. He described it as a squeezing type pain. He went to [place]. He has seen our group at [facility] as an outpatient.He was last seen [...] proteinuria with UPC 1.3. Other history includes hyperten karyna, episode of hyperkalemia in the past, primary [...] Intake/Output Summary (Last 24 hours) at 05/28/2022 0921 Last data filed at 05/27/20221999 Gross per [...] 0-4 Units, Nightly LABS CBC: Recent Labs 05/28/22421 PLT 201 BMP: Recent Labs 05/26/22 0655 [...] neurology appointment with Dr. Victoria in in [place] on 06/21/2022 and will follow-up about his [...] pertinent history and exam findings with the DB2 DEVELOPER I have reviewed the salguero elements of all parts of the encounter with the DB2 DEVELOPER. I have seen and examined the patient. I agree with the assessment and plan and status of the problem list as documented. Uriel Grier MD Nephrology Attending Physician [facility] [place] 05/28/3022 * KENNETH Baltazar CNP - 05/28/2022 8:15 AM EDT Images from the original note were not included. [place] [facility] Progress Note Date: 05/28/2022 Patient name: Elias [...] 4.4 CL 109* 108* 107 CO2 23 19* BUN 18 19 16 CREATININE 1.55* [...] Summary: The study was performed by the Special Makeup Fx Artist Instructor, Cardiac Fellow, and the Plate Molder in the Software Quality Assurance Specialist without complications. Consent was obtained from the [...] Nifedipine. No TYRON/ARB d/t CKD Will follow [place] [facility]. [phone] * Avelino Kent DO - 05/27/2022 12:31 PM EDT Images from the original note were not included. [facility] Office: [phone] Sony Raymond DO, Brodie Campos DO, Skip [...] Stewart CNP, Jennifer Magaña, UMESH, Patricia Harrington, DB2 DEVELOPER, Pauline Charles, DB2 DEVELOPER, Kelli Sarah, DB2 DEVELOPER, Elizabeth Cummings, DB2 DEVELOPER, Karlie Kenney, DB2 DEVELOPER, Ben Cesar, PA-C, Sherron Ngo, LABORER AIRPORT MAINTENANCE, Nyasia Lea, DB2 DEVELOPER, Ivonne Alicea, DB2 DEVELOPER [facility] IN-PATIENT SERVICE [facility] Progress Note 05/27/2022 12:31 PM Name: Elias Walker Acct: [id number] Room: IP Day: 4 Admit Date: 05/23/2022 12:00 PM PCP: KENNETH Taylor CNP Code Status: Full Code Subjective: C/C: Chief Complaint Patient presents with Chest Pain No longer has chest pain, presented to [facility] with chest pain Polydipsia Interval History [...] at 05/27/2022 1231 Last data filed at 05/26/2022 2000 Gross per 24 hour Intake 360 [...] 04:09 AM PBEA 4 09/06/2021 04:41 AM [id number] 98 09/06/2021 04:41 AM FIO2 40.0 09/06/2021 [...] * (Principal) NSTEMI (non-ST elevated myocardial infarction) ([facility]) 05/23/2022 Yes Hypertensive crisis 05/23/2022 Yes OZZIE (acute kidney injury) ([facility]) 05/24/2022 Yes Morbid obesity ([facility]) 05/24/2022 Yes Anxiety 05/23/2022 Yes Allergic rhinitis 05/23/2022 Yes HHNC (hyperglycemic hyperosmolar nonketotic coma) ([facility]) 05/23/2022 Yes Hypertension, essential 05/24/2022 Yes Overview Signed 09/28/2021 1:05 PM by Martin Serrano MD Blood pressures running in the 140-150 systolic range Coronary artery disease of [place] artery of [place] heart with stable angina pectoris ([facility]) 05/27/2022 Yes Plan: NSTEMI with multivessel coronary artery disease. Appreciate cardiology and cardiothoracic surgery recommendations. CKD with improving creatinine. Appreciate nephrology recommendations. Continue gentle IV hydration status post heart catheterization. Continue to monitor BUN and creatinine Diabetes hba1c 10.1 lantus, ISS, consult to diabetes education Depression. Prozac 10 mg Continue current therapy, CABG next week Avelino Kent DO 05/27/2022 12:31 PM * Khanh Zapata RN - 05/27/2022 11:15 AM EDT Images from the original note [...] insulins in past also. He trained at [facility] and has ability to read food labels, [...] meter - Demonstrated use of a meter foreducation and practice of BGSM skill 05/27/22 rs [...] follow up HCP appointments- stated Jose Khanna, MANAGER MANAGED BACKUP SERVICES 05/26/22 rs reinforced _x__ Medications - Insulin [...] / Plate method and grocery list from www.Diabeteswhodoyou Kristine.org _x__ Handout - How to Check Your Blood Sugar from www.DiabetesHealth Kristine.org _x__ Handout - Be safe with [place] teaching sheet - / www.DiabetesSonitus Technologies.org _x__ Handout - How to Use an Insulin Pen - handout with QR code - VENNCOMM Current as of [id number] _x__ Emergency Insert sheet for your Vehicle - ADA Diabetes Emergencies _x__ Diabetes ID card - ADA Low and High Blood Sugar and treatments _x__ [facility] Diabetes Education brochure/ contact card Patient needs reinforcement. understanding of survival skills education, - discussed current insulin plans lantus at 30 units BID and pre meal correction on scale, patient did self adm insulin on 05/26/22 with bedside RN RECOMMENDATIONS INPATIENT PLAN: _x__ Composition Roofer Consult this admission for education on CHO [...] -up education at outpatient diabetes education at [facility]. An ordered is needed for this service and can be placed via EHR. Discharge Navigator ---Med Reconciliation -- New orders for discharge tab -- search diabetic ed - REF20 - [facility]ABET[facility] ED- review and sign __x_ Follow -up with HCP / PCP within one week. Patient has established PCP KHANH ZAPATA RN CDCES * Юлия Quintanilla - 05/27/2022 10:41 AM EDT SPIRITUAL CARE DEPARTMENT - [facility] [place] Shift date: 05/27/2022 Shift day: Monday Shift # 1 Room # Name: Elias Walker Taoist: Non-zoroastrianism Referral: Routine Visit Admit Date & Time: 05/23/2022 12:00 PM Assessment: Elias Walker is a 36 y.o. male in the hospital because of chest pain and polydipsia. Upon entering the room commercial loan underwriter observes the patient sitting up in [...] anticipate while waiting for their surgery potentially experiencinga need for more processing as things sink in for them. Intervention: Repair Mechanic introduced self and title as neurodiagnostic tech Repair Mechanic offered space for the patient to express feelings, needs, and concerns and provided a ministry presence. The neurodiagnostic tech provided emotional support and offer continual support, if needed by the patient. Outcome: The patient expressed gratitude and welcomes future visits. Plan: Chaplains will remain available to offer spiritual and emotional support as needed. 05/27/22 1039 Encounter Summary Service Provided For: Patient Referral/Consult From: [facility] Support System Significant other;Family members Last Encounter 05/27/22 Complexity of Encounter Low Begin Time 0943 End Time 1005 Total Time Calculated 22 min Assessment/Intervention/Outcome Assessment Anxious;Calm;Fearful;Hopeful;Tearful Intervention Active listening;Confronted/Challenged;Explored/Affirmed feelings, thoughts, concerns;Sustaining Presence/Ministry of presence Outcome Connection/Belonging;Engaged in conversation;Expressed feelings, needs, and concerns;Expressed Gratitude . [facility] Care Department [facility] [phone] * Martin Serrano MD - 05/27/2022 9:50 AM EDT Nephrology Progress Note SUBJECTIVE Patient was seen [...] dysfunction. Left ventricular is normal in size withincreased septal wall thickness. US renal 05/23/22 shows normal renal length and echotexture without obstruction. Right kidney measuring 10.2 cm and left kidney measuring 10.3 cm. Cystic- appearing lesion 3.0 cm within the right kidney. HPI: presents with left-sided chest pain radiating to the left shoulder while the patient was at rest. He came in to the hospital with the chest pain and reportedly not well controlled hypertension. He described it as a squeezing type pain. He went to [place]. He has seen our group at [facility] as an outpatient.he was last seen [...] 09/02/2021 12:25 PM PATH ELECTRONICALLY SIGNED. ZOE STENR M.D. 09/02/2021 12:25 PM UPEP: Lab Results [...] neurology appointment with Dr. Victoria in in [place] on 06/21/2022 and will follow-up about his [...] Preciado MD Internal Medicine Resident PGY 3 [facility] [place] 05/27/2022, 9:54 AM This note is created [...] seen me in the office before at [facility]. He also has known history of morbid obesity type 2 diabetes and hypertension. Previously has had history of hypercalcemia from primary hyperparathyroidism calciums have been well controlled most recently. No intervention was done. He presented to the hospital with symptoms of chest pain found to have non-ST elevation NE. 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 There was a slight bump in creatinine on presentation likely related to acute NE, peaked at 2.0. Renal function now at [...] of the problem list as documented. . * Yanelis Grijalva MD - 05/26/2022 3:50 PM EDT Images from the original note were not included. [facility] Office: [phone] Sony Raymond DO, Brodie Campos DO, Skip [...] Serna CNP, Desire Harley CNP, Ariel Stewart, JOSE, Jennifer Magaña, UMESH, Patricia Harrington, DB2 DEVELOPER, Pauline Charles, DB2 DEVELOPER, Kelli Sarah, DB2 DEVELOPER, Elizabeth Cummings, DB2 DEVELOPER, Karlie Kenney CNP, Ben Cesar PA-C, Sherron Ngo, ALEJANDRO, Nyasia Lea, DB2 DEVELOPER, Ivonne Alicea, DB2 DEVELOPER [facility] IN-PATIENT SERVICE [facility] Progress Note 05/26/2022 3:50 PM Name: Elias Walker Acct: [id number] Room: IP Day: 3 Admit Date: 05/23/2022 12:00 PM PCP: KENNETH Taylor CNP Code Status: Full Code Subjective: C/C: Chief Complaint Patient presents with Chest Pain No longer has chest pain, presented to [facility] with chest pain Polydipsia Interval History [...] 04:09 AM PBEA 4 09/06/2021 04:41 AM [id number] 98 09/06/2021 04:41 AM FIO2 40.0 09/06/2021 [...] * (Principal) NSTEMI (non-ST elevated myocardial infarction) ([facility]) 05/23/2022 Yes Hypertensive crisis 05/23/2022 Yes OZZIE (acute kidney injury) ([facility]) 05/24/2022 Yes Morbid obesity ([facility]) 05/24/2022 Yes Anxiety 05/23/2022 Yes Allergic rhinitis 05/23/2022 Yes HHNC (hyperglycemic hyperosmolar nonketotic coma) ([facility]) 05/23/2022 Yes Hypertension, essential 05/24/2022 Yes Overview Signed 09/28/2021 1:05 PM by Martin Serrano MD Blood pressures running in the 140-150 systolic range Plan: NSTEMI with multivessel coronary artery disease. Appreciate cardiology and cardiothoracic surgery recommendations. CKD with improving creatinine. Appreciate nephrology recommendations. Continue gentle IV hydration status post heart catheterization. Continue to monitor BUN and creatinine Diabetes hba1c 10.1 KENTON garza, consult to diabetes education Depression. Prozac 10 mg Gi prophylaxis protonix Yanelis Grijalva MD 05/26/2022 3:50 PM * Cindi Harmon RN - 05/26/2022 3:09 PM EDT Patient transported to room 2006 via stretcherRay RN assessed right radial Vasband, with 10 ml of air.no changes. * Cindi Harmon RN - 05/26/2022 2:50 PM EDT REport called to Ray BAUM. * Cindi Harmon RN - 05/26/2022 2:34 PM EDT Patient received post cath to [facility] room 15. Assessment obtained. Post cath pathway initiated. Right radial site with Vascband intact. No hematoma noted. Restrictions reviewed with patient. Patient without complaints. * Akin Rao RN - 05/26/2022 12:48 PM EDT Patient admitted, consent signed and questions answered. Patient ready for procedure. Call light toreach with side rails up 2 of 2. Right wrist, left and right groin hair clipped with commercial loan underwriter and BAUTISTA Xiao present. No family at bedside with patient. History and physical completed. * Khanh Zapata RN - 05/26/2022 11:38 AM EDT Diabetes education - follow up VISIT at bedside 05/26/22 Elias Walker, follow up education on Type 2 uncontrolled,new dx. He stated family history of diabetes and aware of how to use home BG meter, used on self and with other family in past. He has helped with adm of insulins in past also. He trained at [facility] and has ability to read food labels, [...] meter - Demonstrated use of a meter foreducation and practice of BGSM skill __x_ Blood [...] follow up HCP appointments- stated Jose Khanna, MANAGER MANAGED BACKUP SERVICES 05/26/22 rs reinforced _x__ Medications - Insulin [...] [email or web address] _x__ Handout - Be safe with [place] teaching sheet - / www.DiabetesSonitus Technologies.org _x__ Handout - How to Use an Insulin Pen - handout with QR code - whodoyou nielsen Current as of [id number] _x__ Emergency Insert sheet for your Vehicle - ADA Diabetes Emergencies _x__ Diabetes ID card - ADA Low and High Blood Sugar and treatments _x__ [facility] Diabetes Education brochure/ contact card Patient needs reinforcement. understanding of survival skills education, - discussed current insulin plans lantus at 30 units BID and pre meal correction on scale, patient did self adm insulin today with bedside RN RECOMMENDATIONS INPATIENT PLAN: _x__ Composition Roofer Consult this admission for education on CHO [...] -up education at outpatient diabetes education at [facility]. An ordered is needed for this service and can be placed via EHR. Discharge Navigator ---Med Reconciliation -- New orders for discharge tab -- search diabetic ed - REF20 - [facility] ED- review and sign __x_ Follow -up with HCP / PCP within one week. Patient has established PCP KHANH ZAPATA RN CDCES * Talib Saldaña MD - 05/26/2022 10:43 AM EDT Nephrology Progress Note SUBJECTIVE Patient was seen [...] cm and left kidney measuring 10.3 cm. Cystic- appearing lesion 3.0 cm within the right kidney. HPI: presents with left-sided chest pain radiating to the left shoulder while the patient was at rest. He came in to the hospital with the chest pain and reportedly not well controlled hypertension. He says the pain was at rest. He described it as a squeezing type pain. He went to [place]. He has seen our group at [facility] as an outpatient.he was last seen there by my partner, Dr. Serrano, in December of 2021. The patient had a previous acute kidney injury episode secondary to ischemic ATNin the setting of septic shock NSAIDs Bactrim and vancomycin and radiocontrast with creatinine peaking at 2.1. It has recently fluctuated in the 1.3-1.5 range. He also has associated proteinuria withUPC 1.3. Other history includes hypertension, episode of hyperkalemia in the past, primary hyperparathyroidism leading to hypercalcemia, morbid obesity and history of dilated cardiomyopathy with LVEFpreviously noted to be 30% along with mild [...] 3.9 4.3 CL 99 102 109* CO2 23 BUN 31* 25* 18 CREATININE 2.04* 1.70* [...] neurology appointment with Dr. Victoria in in [place] on 06/21/2022 and will follow-up about his renal cysts there. PLAN Change IV fluids to half normal saline at 75 cc an hour. Continue mucomyst as well. Continue to monitor strict I's and O's and renal function. Patient is cleared for cardiac catheter today. Plan for cardiac cath this afternoon per cardiology.This was discussed with the patient and contrast related renal risks all the way up to the possibility of requiring dialysis was also explained. Patient verbalized understanding and is okay with getting the procedure done as required. BMP in AM. Will follow. Please do not hesitate to call with questions. Terrance Echeverria MD, MPH, PGY-2 Internal Medicine Resident [facility], [place], [place] Attending Physician Statement I have discussed the care of this patient, including pertinent history and exam findings, with the Resident/DB2 DEVELOPER. I have reviewed and edited the salguero elements of all parts of the encounter with the Resident/DB2 DEVELOPER. I agree with the assessment, plan and orders as documented by the Resident/DB2 DEVELOPER. Talib Saldaña MD [facility] [place] This note is created with the assistance of a speech-recognition program. While intending to generate a document that actually reflects the content of the visit, no guarantees can be provided that every mistake has been identified and corrected by editing. * Taryn Garcia RN - 05/26/2022 10:34 AM EDT Repair Mechanic speaks with JOSE Chapman for cardiology. Patient is cleared for cardiac cath and will be going down between 1230/1300. Repair Mechanic informs patient. * KENNETH Baltazar CNP - 05/26/2022 9:32 AM EDT Images from the original note were not included. [place] [address] Safety Engineer Progress Note Date: 05/26/2022 Patient name: Elias Walker Date of admission: 05/23/2022 12:00 PM Date of : 1985 PCP: Jose J Khanna, MANAGER MANAGED BACKUP SERVICES - DB2 DEVELOPER Reason for Admission: NSTEMI (non-ST elevated myocardial infarction) ([facility]) [I21.4] Subjective: Clinical Changes /Abnormalities: Patient was [...] Summary: The study was performed by the Special Makeup Fx Artist Instructor, Cardiac Fellow, and the Plate Molder in the Software Quality Assurance Specialist without complications. Consent was obtained from the [...] III (HCC) NSTEMI (non-ST elevated myocardial infarction) ([facility]) Hypertensive crisis Morbid obesity (HCC) Anxiety Allergic [...] this AM. Consider Hydralazine if remains elevated [address] Safety Engineer [facility]. [phone] * Taryn Garcia RN - 05/26/2022 8:00 AM EDT Repair Mechanic pulls patient's insulin into syringe and has patient self administer under supervision. Patient does extremely well. * Taryn Garcia RN - 05/26/2022 7:[address] Grijalva notified that patient's BP elevated and outside of parameters prior to am medications given. Medications given, will recheck BP and continue to monitor. * Taryn Garcia RN - 05/25/2022 3:39 PM EDT aware of elevated BP. New orders received to increase procardia with a 1 x 30 mg dose. * Yanelis Grijavla MD - 05/25/2022 2:35 PM EDT Images from the original note were not included. [facility] Office: [phone] Sony Raymond DO, Brodie Campos DO, Skip Diggs DO, Rubén Swain DO, Lee Ann Saldaña MD, Love Cortez MD, Sultana Harley MD, Solange Mercer MD, Augusto Santizo MD, Lukas Angulo MD, Avelino Kent DO, Yanelis Grijalva MD, Fly Zapata DO, Jeaneth Begum MD, John Ricks MD, Madison Raymond DO, Nsara Schulte MD, Alessio Bhat MD, Eddie Rader DO, Tiara Ladd MD, Emma Arnold MD, Meghann Cooper MD, Michele Hardin MD, Jennifer Guo MD, Jerry Davis DO, Justin Gaines MD, Loco Wilks MD, Mayra Chicas, DB2 DEVELOPER, Riri Serna, DB2 DEVELOPER, Desire Harley, DB2 DEVELOPER, Ariel Stewart, DB2 DEVELOPER, Jennifer Magaña, DNP, Patricia Harrington, DB2 DEVELOPER, Pauline Charles, DB2 DEVELOPER, Kelli Sarah, DB2 DEVELOPER, Elizabeth Cummings, DB2 DEVELOPER, Karlie Kenney, DB2 DEVELOPER, WILL Carter-C, Sherron Ngo, LABORER AIRPORT MAINTENANCE, Nyasia Lea, DB2 DEVELOPER, Ivonne Alicea, DB2 DEVELOPER [facility] IN-PATIENT SERVICE [facility] Progress Note 05/25/2022 2:35 PM Name: Elias Walker Acct: [id number] Room: [facility] Day: 2 Admit Date: 05/23/2022 12:00 PM PCP: KENNETH Taylor CNP Code Status: Full Code Subjective: C/C: Chief Complaint Patient presents with Chest Pain No longer has chest pain, presented to [facility] with chest pain Polydipsia Interval History [...] OR dextrose bolus, glucagon (rDNA), dextrose, sodium chlorideflush, sodium chloride, potassium chloride OR potassium alternative [...] 5' 4 (1.626 m) Wt 282 lb 3oz (128 kg) SpO2 94% BMI 48.44 kg/m [...] 04:09 AM PBEA 4 09/06/2021 04:41 AM [id number] 98 09/06/2021 04:41 AM FIO2 40.0 09/06/2021 [...] * (Principal) NSTEMI (non-ST elevated myocardial infarction) ([facility]) 05/23/2022 Yes Hypertensive crisis 05/23/2022 Yes OZZIE (acute kidney injury) ([facility]) 05/24/2022 Yes Morbid obesity ([facility]) 05/24/2022 Yes Anxiety 05/23/2022 Yes Allergic rhinitis 05/23/2022 Yes HHNC (hyperglycemic hyperosmolar nonketotic coma) ([facility]) 05/23/2022 Yes Hypertension, essential 05/24/2022 Yes Overview Signed 09/28/2021 1:05 PM by Martin Serrano MD Blood pressures running in the 140-150 systolic range Plan: NSTEMI. Appreciate cardiology recommendations. Heparin drip. Nifedipine, asa, liptior, coreg, fenofibrate, CKD with improving creatinine. Appreciate nephrology recommendations. Mucomyst, IVF Possible plan for cardiac cath tomorrow if Creatinine less than 1.5 Diabetes hba1c 10.1 greg, ISS, consult to diabetes education Depression. Prozac 10 mg Encourage medical compliance. NPO at midnight. Gi prophylaxis protonix Yanelis Grijalva MD 05/25/2022 2:35 PM * Talib Saldaña MD - 05/25/2022 2:05 PM EDT Nephrology Progress Note SUBJECTIVE Patient was seen [...] cm and left kidney measuring 10.3 cm. Cystic- appearing lesion 3.0 cm within the right kidney. [...] neurology appointment with Dr. Victoria in in [place] on 06/21/2022 and will follow-up about his renal cysts there. BMP in AM. Will follow. Please do not hesitate to call with questions. Talib Saldaña MD [facility] [place] This note is created with the assistance of a speech-recognition program. While intending to generate a document that actually reflects the content of the visit, no guarantees can be provided that every mistake has been identified and corrected by editing. * Emilia Haines, KENNETH - DB2 DEVELOPER - 05/25/2022 12:32 PM EDT Images from the original note were not included. [address] Safety Engineer Progress Note Date: 05/25/2022 Patient name: Elias Walker Date of admission: 05/23/2022 12:00 PM Date of : 1985 PCP: Jose Khanna, KENNETH - DB2 DEVELOPER Reason for Admission: NSTEMI (non-ST elevated myocardial [...] Summary: The study was performed by the Special Makeup Fx Artist Instructor, Cardiac Fellow, and the Plate Molder in the Software Quality Assurance Specialist without complications. Consent was obtained from the [...] to Streptococcus species without acute organ dysfunction ([facility]) Staphylococcus aureus pneumonia ([facility]) Delirium Cerebral septic emboli (HCC) OZZIE (acute kidney injury) ([facility]) Hypercalcemia Cerebral embolism Cerebrovascular accident (CVA) ([facility]) Septicemia (HCC) Dilated cardiomyopathy (HCC) Hypertension, essential Persistent proteinuria CKD (chronic kidney disease), stage III ([facility]) NSTEMI (non-ST elevated myocardial infarction) ([facility]) Hypertensive crisis Morbid obesity ([facility]) Anxiety Allergic rhinitis HHNC (hyperglycemic hyperosmolar nonketotic [...] 60 mg QD. TYRON on hold due toAKI. Rest of care per primary. [address] Safety Engineer [facility]. [phone] * Taryn Garcia RN - 05/25/2022 12:02 PM EDT Patient notifies commercial loan underwriter that he will be seeing Dr. Victoria- urology in [place], [place] on 06/21/2022. * Юлия Block - 05/25/2022 10:24 AM EDT Echo completed in the Echo Lab. Definity administered by RN (2mL of Diluted Bolus) * Taryn Garcia RN - 05/25/2022 7:16 AM EDT Repair Mechanic notifies nephrology for cardiac clearance. Awaiting further directions and orders. * Ronni Quintanilla PT - 05/24/2022 3:40 PM EDT Images from the original note were not included. Physical Therapy Physical Therapy Cancel Note DATE: 05/24/2022 NAME: Elisa Walker : 1985 Patient not seen this date for Physical Therapy due to: Patient independent with functional mobility. Will defer PT evaluation at this time. Please reorderPT if future needs arise. * KENNETH Sargent CNP - 05/24/2022 1:34 PM EDT Congestive Heart Failure Education completed and charted. CHF booklet given. Patient was receptive to education. Discussed the importance of medication compliance. Discussed the importance of a heart healthy diet. Discussed 2000 mg sodium- restricted daily diet. Patient instructed to limit fluid [...] office if these symptoms occur. EF 50% * Nilda Schulz OT - 05/24/2022 1:23 PM EDT Images from the original note were not included. Occupational Therapy [facility] Occupational Therapy Not Seen Note DATE: 05/24/2022 NAME: Elias Walker : 1985 Patient not seen this date for Occupational Therapy due to: Patient independent with ADLs and functional tasks with no acute OT needs per RN and pt report. Pt reports no safety concerns for returning home at discharge. Will defer OT evaluation at this time. Please reorder OT if future needs arise. * Talib Saldaña MD - 05/24/2022 10:16 AM EDT Nephrology Progress Note SUBJECTIVE Patient was seen [...] CALCIUM -- 10.6* 10.0 MAGNESIUM: Recent Labs 05/24/22 0725 MG 1.8 [...] Echeverria MD, MPH, PGY-2 Internal Medicine Resident [facility] [place], [place] Attending Physician Statement I have discussed the care of this patient, including pertinent history and exam findings, with the Resident/DB2 DEVELOPER. I have reviewed and edited the salguero elements of all parts of the encounter with the Resident/DB2 DEVELOPER. I agree with the assessment, plan and orders as documented by the Resident/DB2 DEVELOPER. Talib Saldaña MD [facility] [place] This note is created with the assistance of a speech-recognition program. While intending to generate a document that actually reflects the content of the visit, no guarantees can be provided that every mistake has been identified and corrected by editing. * Alessio Bhat MD - 05/24/2022 9:47 AM EDT Images from the original note were not included. [facility] Office: [phone] Sony Raymond DO, Brodie Campos DO, Skip [...] Mayra Chicas, JOSE, Riri Serna CNP, Desire Harley, DB2 DEVELOPER, Ariel Stewart, DB2 DEVELOPER, Jennifer Magaña, UMESH, Patricia Harrington, DB2 DEVELOPER, Pauline Charles, DB2 DEVELOPER, Kelli Sarah, DB2 DEVELOPER, Elizabeth Cummings, DB2 DEVELOPER, Karlie Kenney, DB2 DEVELOPER, ALESSANDRA CarterC, Sherron Ngo, LABORER AIRPORT MAINTENANCE, Nyasia Lea, DB2 DEVELOPER, Ivonne Alicea, DB2 DEVELOPER [facility] [facility] IN-PATIENT SERVICE [facility] Progress Note 05/24/2022 9:47 AM Name: Elias Walker Acct: [id number] Room: [facility]/0407-01 Day: 1 Admit Date: 05/23/2022 12:00 PM PCP: KENNETH Taylor CNP Code Status: Full Code Subjective: C/C: Chief Complaint Patient presents with Chest Pain No longer has chest pain, presented to [facility] with chest pain Polydipsia Interval History [...] C), Max:98.2 F (36.8 C) Recent Labs 05/23/22161605/23/22203505/24/2233905/24/22 0725 POCGLU 413* 423* 362* 367* I/O (24Hr): No intake or output data in the 24 hours ending 05/24/22 09 Labs: Hematology: Recent Labs 05/23/22122105/24/22 07 WBC 10.9 10.7 RBC 5.20 4.50 HGB 15.5 13.4 HCT 43.4 39.0* MCV 83.5 86.7 MCH 29.8 29.8 MCHC 35.7* 34.4 RDW 12.4 13.1 PLT 248 198 MPV 11.4 11.1 Chemistry: Recent Labs 05/23/22121805/23/22122105/23/22190605/23/22210405/24/22 0725 NA -- -- -- 132* 132* K -- -- -- 4.3 4.1 CL -- -- -- 97* 99 CO2 -- -- -- 22 GLUCOSE -- -- -- 416* 391* BUN -- -- -- 34* 31* CREATININE 2.26* -- -- 2.08* 2.04* MG -- -- -- -- 1.8 ANIONGAP -- -- -- 12 11 LABGLOM -- -- -- 41* 42* CALCIUM -- -- -- 10.6* 10.0 TROPHS -- 138* 113* -- -- Recent Labs 05/23/22121805/23/22122105/23/22161605/23/22203505/24/2233905/24/22 0725 LABA1C -- 10.1* -- -- -- [...] 04:09 AM PBEA 4 09/06/2021 04:41 AM LFYB3NYR 98 09/06/2021 04:41 AM FIO2 40.0 09/06/2021 [...] * (Principal) NSTEMI (non-ST elevated myocardial infarction) ([facility]) 05/23/2022 Yes Hypertensive crisis 05/23/2022 Yes Acute kidney injury superimposed on CKD ([facility]) 05/23/2022 Yes Class 3 severe obesity due to excess calories with serious comorbidity and body mass index (BMI) of45.0 to 49.9 in adult ([facility]) 05/23/2022 Yes Anxiety 05/23/2022 Yes Allergic rhinitis 05/23/2022 Yes HHNC (hyperglycemic hyperosmolar nonketotic coma) ([facility]) 05/23/2022 Yes Primary hypertension 05/23/2022 Yes Overview Signed 09/28/2021 1:05 PM by Martin Serrano MD Blood pressures running in the 140-150 systolic range Plan: Hypertensive emergency - troponin elevation, NSTEMI, cardiology consulted he remains on heparin gtt- CP has improved with BP control BG improving - check BHB Monitor renal function - avoid nephrotoxic agents - still holding ACEi 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 Nephro has been consulted Alessio Bhat MD 05/24/2022 9:47 AM * Khanh Zapata RN - 05/24/2022 8:45 AM EDT Elias Walker, Seen for evaluation and education on Type 2 uncontrolled,new dx. He stated family history of diabetes and aware of how to use home BG meter, used on self and with other family in past. He has helped with adm of insulins in past also. He trained at [facility] and has ability to read food labels, [...] meter - Demonstrated use of a meter foreducation and practice of BGSM skill __x_ Blood [...] at time of start of meal & administeringwithin 15 minutes of eating meals ( meal [...] [email or web address] _x__ Handout - Be safe with [place] teaching sheet - / [email or web address] _x__ Handout - How to Use an Insulin Pen - handout with QR code - Health nielsen Current as of [id number] _x__ Emergency Insert sheet for your Vehicle - ADA Diabetes Emergencies _x__ Diabetes ID card - ADA Low and High Blood Sugar and treatments _x__ [facility] Diabetes Education brochure/ contact card Patient needs reinforcement. understanding of survival skills education, once plan for discharge isestablished RECOMMENDATIONS INPATIENT PLAN: _x__ Composition Roofer Consult this admission for education on CHO [...] -up education at outpatient diabetes education at [facility]. An ordered is needed for this service and can be placed via EHR. Discharge Navigator ---Med Reconciliation -- New orders for discharge tab -- search diabetic ed - REF20 - [facility] ED- review and sign __x_ Follow -up with HCP / PCP within one week. KHANH ZAPATA RN CDCES * Aarti Lopez RN - 05/23/2022 11:00 PM EDT Ultrasound at bedside for renal ultrasound * Aarti Lopez RN - 05/23/2022 8:45 PM EDT Notified second operator SUPERVISOR [employer] of patients blood sugar check per order documented in [facility] Work Phone: 1(969) 269-160104-03-2023 Hospital course Narrative* KENNETH Ohara CNP - 06/06/2022 9:58 AM EDT Cardiothoracic Surgery IN-PATIENT SERVICE [facility] Discharge Summary Patient ID: Elias Walker : 1985 ACCOUNT: [id number] Patient's PCP: KENNETH Taylor CNP Admit Date: 05/23/2022 Discharge Date: 06/06/2022 Length of Stay: 14 Code Status: Full Code Admitting Physician: Ariel Purdy MD Discharge Physician: KENNETH OHARA CNP Active Discharge Diagnoses: Hospital Problem Lists: Principal Problem: Multiple vessel coronary artery disease Active Problems: Hypertensive crisis Acute kidney injury superimposed on CKD (HCC) NSTEMI (non-ST elevated myocardial infarction) (HCC) Morbid obesity (HCC) Anxiety Allergic rhinitis HHNC (hyperglycemic hyperosmolar nonketotic coma) ([facility]) Essential hypertension History of primary hyperparathyroidism IAN (obstructive sleep apnea) History of type 2 diabetes mellitus Resolved Problems: * No resolved hospital problems. * Admission Condition: good Discharged Condition: good Hospital Stay: HPI: Elias Walker is a 36 y.o. year old, male who presented male w/PMHx of Stage 3 CKD, HTN, DM,and dilated cardiomyopathy w/EF 50%. Patient went to outlying facility with complaint of chest painthat radiated to his left arm. Pain was 9/10 associated with diaphoresis and nausea. Pain resolved without taking medications. On admission sugars were 1100 with BP greater than 200. + EKG changes. Troponin trending upward. He was transferred to [facility] for further workup and possible intervention. Cardiac [...] IP CONSULT TO CARDIOLOGY IP CONSULT TO VEHICLE UPHOLSTERER IP CONSULT TO VEHICLE UPHOLSTERER IP CONSULT TO NEPHROLOGY IP CONSULT TO VEHICLE UPHOLSTERER IP CONSULT TO CARDIOTHORACIC SURGERY IP CONSULT TO VEHICLE UPHOLSTERER IP CONSULT TO SPIRITUAL SERVICES IP CONSULT TO IV TEAM IP CONSULT TO CASE MANAGEMENT IP CONSULT TO SPIRITUAL SERVICES IP CONSULT TO CARDIOLOGY IP CONSULT TO CARDIAC REHAB IP CONSULT TO VEHICLE UPHOLSTERER IP CONSULT TO CARDIOLOGY The patient was seen and examined on day of discharge and this discharge summary is in conjunction with any daily progress note from day of discharge. Discharge plan: Disposition: Home Physician Follow Up: [facility] [address] [facility] [address] [facility] [phone] Call Follow up education on diabetes self management, As needed Ariel Purdy MD [address] [facility] [address] [facility] [address] Call in 2 week(s) Requiring Further Evaluation/Follow [...] Your Medications These medications were sent to [facility] [place], [place] - [address] [facility] - P [phone] - F [phone] [facility] [place] [address] amiodarone 200 MG tablet aspirin 81 MG [...] CNP 06/06/2022 9:58 AM documented in this encounterBON ABRA[facility] CAMPUSMy[facility]ade Phone: 1(706) 669-754104-03-2023 Hospital Discharge instructions* Discharge Instructions* KENNETH Ohara CNP - 06/06/2022 9:52 AM EDT Images from the original note were not included. ACTIVITY/EXERCISE ? It will take 2 to 3 months to feel like you did before surgery in terms of energy and strength. ? Slowly increase your activity after you go home. Pace yourself, listen to your body. If it hurts,stop. During the first 2 months, no digging, [...] and the incentive spirometer 6 times a dayas you did in the hospital. ? Do [...] you have soreness. Never place it on yourincision. BOWEL HABITS ? Constipation is common due to Pain medications and inactivity. ? Try drinking prune juice, eating a well balanced diet including fruits, vegetables and whole grains. ? If constipation persists, you may use any kegv-yxa-sxpccqv laxative, suppository or enema. DRIVING AND RIDING [...] ? Sutures may be removed by any health-critical care nurse practitioner after 7 days from THERESA/chest tube removal. SMOKING If you smoke, STOP. Smoking will cause early graft closure, other blockages, new heart attacks, andpossibly even . SLEEPING ? If you have [...] you will be able to watch them. [email or web address] CALL YOUR SURGEON IF YOU HAVE: ? [...] after discharge from the hospital. Office Location: [address] [place] [address] [address] [place] [address] ? You may call the office to [...] have a follow up appointment with your Special Makeup Fx Artist Instructor 2-3 weeks from discharge, please call and [...] day to get your calls to the continuing education director Physician, but we are often in surgery and it takes us awhile to get back to you. * Attachments The following attachments cannot be sent through Care Everywhere. * Diabetes: Type 2 (Egyptian) * insulin glargine (Egyptian) * Diabetes: Insulin Pens: General Info (Egyptian) * Diabetes: Counting Carbohydrates: Video (Egyptian) * Diabetes: Carb Counting and Eating Well: General Info (Egyptian) documented in [facility] [employer] Phone: 1(379) 304-867007-26-2022 Hospital Discharge instructions* Discharge Instructions* Taryn Fam RN - 09/28/2021 2:40 PM EDT Verbally reviewed discharge instructions for care and follow up. Previous print out of these instructions were given with prior treatment.Patient verbalized understanding of these instructions. documented in this encounterCARIL[facility] [employer] Phone: [phone]) 188-872907-22-2022 Hospital Discharge instructions* Discharge Instructions* Jocelyn Miranda RN - 09/24/2021 4:26 PM EDT Outpatient Discharge Instructions for IV Therapy [address] [place] [address] You are advised to carry out the [...] THE NEAREST EMERGENCY ROOM. [facility] [employer] Phone: 1(456) 379-610407-21-2022 Hospital Discharge instructions* Discharge Instructions* Rody Fowler RN - 09/23/2021 4:19 PM EDT Verbally reviewed discharge instructions for care and follow up. Previous print out of these instructions were given with prior treatment.Patient verbalized understanding of these instructions. documented in [facility] encounterRetreat [facility] Phone: [phone]) 224-232207-20-2022 Hospital Discharge instructions* Discharge Instructions* Rody Fowler RN - 09/22/2021 4:07 PM EDT Verbally reviewed discharge instructions for care and follow up. Previous print out of these instructions were given with prior treatment.Patient verbalized understanding of these instructions. documented in this encounterRetreat [facility] Phone: 1(290) 330-464807-19-2022 Hospital Discharge instructions* Discharge Instructions* Mayra Caceres RN - 09/21/2021 4:26 PM EDT Verbally reviewed discharge instructions for care and follow up. Previous print out of these instructions were given with prior treatment.Patient verbalized understanding of these instructions. documented in this encounterRetreat [facility] Phone: [phone]) 795-105407-15-2022 Hospital Discharge instructions* Discharge Instructions* Taryn Fam RN - 09/17/2021 5:17 PM EDT Verbally reviewed discharge instructions for care and follow up. Previous print out of these instructions were given with prior treatment.Patient verbalized understanding of these instructions. documented in this encounterRetreat [facility]' [facility] Phone: [phone]) 563-643507-13-2022 Hospital Discharge instructions* Instructions* Taryn Fam RN - 09/15/2021 Verbally reviewed discharge instructions for care and follow up. Previous print out of these instructions were given with prior treatment.Patient verbalized understanding of these instructions. documented in this encounterRetreat [facility] Phone: [phone] 190-954707-12-2022 Hospital Discharge instructions* Instructions* Taryn Fam RN - 09/14/2021 Outpatient Discharge Instructions for IV Therapy [address] [place] [address] You are advised to carry out the [...] THE NEAREST EMERGENCY ROOM. documented in this encounterRetreat [facility]' Hospital Phone: [phone] 149-489107-10-2022 History of Present illness Narrative* Jared eHrnandez MD - 09/12/2021 11:39 AM EDT Images from the original note [...] phenomena Patient will be going to the [facility] during the week and may have to return to [facility] infusion center during the weekends, if ER at [facility] can not provide the treatment during the weekends Clinically the patient continues to make good recovery as his mentation continues to improve daily. Plans are in progress for potential discharge but insurance coverage remains the issue. Office f/up in [address] Henao for infection. Please call [phone] for appointment Infection Control Recommendations: [place] precautions Discharge Planning: Estimated Length of IV [...] complaining of shortness of breath and work-up inthe seem to suggest CHF and a CT [...] and an echocardiogram showed moderate pericardial effusion andtechnically challenging evaluation there was no evidence of tamponade noted. 35 to 40 cc of fluid drained at pericardiocentesis in the emergency department. The patient is being treated for pulmonary edema and during the hospital stay he has been noted to have had fevers with a T-max of 101.3 degrees and was started on empiric antimicrobial therapy and Iwas asked to evaluate and help with antibiotic choice. The patient did undergo a CESAR that did not show any evidence of valvular heart disease/endocarditis The patient did have a new finding of bilateral Babinski's by the neurology service on 09/04/2021 hadMRI of the brain done that showed multi [...] IV antibiotics through the Infusion Center at [facility]. He may need an alternative site during the weekends, such as IV infusion center, if [facility] can not provide that service during the weekends. Office f/up in [address] Henao for infection. Please call [phone] for appointment The patient was seen by [...] were no complications encountered. Cardiovascular Diseases Fellow [facility] ONE XRAY VIEW OF THE CHEST 09/02/2021 [...] effusion and cardiomegaly. Cultures: Culture, Blood 1 [[id number]] Collected: 09/08/21 1000 Order Status: Completed Specimen: Blood Updated: 09/10/21 1041 Specimen Description .BLOOD Special Requests L HAND 10ML Culture NO GROWTH 2 DAYS Culture, Blood 1 [[id number]] Collected: 09/08/21 1004 Order Status: Completed Specimen: Blood Updated: 09/10/21 1040 Specimen Description .BLOOD Special Requests R HAND 10ML Culture NO GROWTH 2 DAYS Culture, Blood 1 [[id number]] Collected: 08/31/21 1515 Order Status: Completed Specimen: Blood Updated: 09/05/21 1553 Specimen Description .BLOOD Culture NO GROWTH 5 DAYS Culture, Blood 1 [[id number]] Collected: 08/31/21 1519 Order Status: Completed Specimen: Blood Updated: 09/05/21 1531 Specimen Description .BLOOD Culture NO GROWTH 5 DAYS Culture, Body Fluid [[id number]] (Abnormal) Collected: 08/29/21 0342 Order Status: Completed Specimen: Body Fluid Updated: 09/04/21 1436 Specimen Description .FLUID .PERICARDIAL FLUID Direct Exam RARE NEUTROPHILS Abnormal NO BACTERIA SEEN Gram stain made from cytocentrifuged specimen. Organisms and cells will be concentrated. Culture NO GROWTH 6 DAYS Culture, Blood 1 [[id number]] Collected: 08/30/21 0953 Order Status: Completed Specimen: Blood Updated: 09/04/21 1024 Specimen Description .BLOOD Special Requests 10ML R ARM Culture NO GROWTH 5 DAYS Culture, Blood 1 [[id number]] (Abnormal) Collected: 08/30/21 1001 Order Status: Completed [...] Chain Reaction (PCR) results called to and readback by: BAUTISTA Greenfield at 0425 on 08/31/21 Culture, Respiratory [[id number]] (Abnormal) Collected: 08/30/21 2341 Order Status: Completed [...] Resulted: 09/02/21 08:28 MRSA DNA Probe, Nasal [[id number]] (Abnormal) Collected: 08/29/21 0813 Order Status: Completed [...] (Restricted: peds pts or suitable admitted adults) [[id number]] (Abnormal) Collected: 08/30/21 1119 Order Status: Completed Specimen: Nasopharyngeal Swab Updated: [...] [facility] Jared Hernandez MD [employer] OFFICE: Thank you for allowing us [...] meaning can be extrapolated by contextual diversion. * Ladonna Wogomon, RN - 09/12/2021 1:32 AM EDT 09/12 1999 received telephone call from patients SO Nicolle, She stated patient DC plan is to go home with home health, PT/OT if needed and family will take patient to an outpatient infusion clinic for IV antibiotics. This was new information to this commercial loan underwriter. Reviewed DC wishes with patient. Juan statedhe wants to go home. He states he [...] board to assist him with his memory. * Jared Hernandez MD - 09/11/2021 2:55 PM EDT Images from the original note [...] coverage remains the issue. Infection Control Recommendations: [place] precautions Discharge Planning: Estimated Length of IV [...] complaining of shortness of breath and work-up inthe seem to suggest CHF and a CT [...] and an echocardiogram showed moderate pericardial effusion andtechnically challenging evaluation there was no evidence of tamponade noted. 35 to 40 cc of fluid drained at pericardiocentesis in the emergency department. The patient is being treated for pulmonary edema and during the hospital stay he has been noted to have had fevers with a T-max of 101.3 degrees and was started on empiric antimicrobial therapy and Iwas asked to evaluate and help with antibiotic choice. The patient did undergo a CESAR that did not show any evidence of valvular heart disease/endocarditis The patient did have a new finding of bilateral Babinski's by the neurology service on 09/04/2021 hadMRI of the brain done that showed multi [...] were no complications encountered. Cardiovascular Diseases Fellow [facility] ONE XRAY VIEW OF THE CHEST 09/02/2021 [...] effusion and cardiomegaly. Cultures: Culture, Blood 1 [[id number]] Collected: 09/08/21 1000 Order Status: Completed Specimen: Blood Updated: 09/10/21 1041 Specimen Description .BLOOD Special Requests L HAND 10ML Culture NO GROWTH 2 DAYS Culture, Blood 1 [[id number]] Collected: 09/08/21 1004 Order Status: Completed Specimen: Blood Updated: 09/10/21 1040 Specimen Description .BLOOD Special Requests R HAND 10ML Culture NO GROWTH 2 DAYS Culture, Blood 1 [[id number]] Collected: 08/31/21 1515 Order Status: Completed Specimen: Blood Updated: 09/05/21 1553 Specimen Description .BLOOD Culture NO GROWTH 5 DAYS Culture, Blood 1 [[id number]] Collected: 08/31/21 1519 Order Status: Completed Specimen: Blood Updated: 09/05/21 1531 Specimen Description .BLOOD Culture NO GROWTH 5 DAYS Culture, Body Fluid [[id number]] (Abnormal) Collected: 08/29/21 0342 Order Status: Completed Specimen: Body Fluid Updated: 09/04/21 1436 Specimen Description .FLUID .PERICARDIAL FLUID Direct Exam RARE NEUTROPHILS Abnormal NO BACTERIA SEEN Gram stain made from cytocentrifuged specimen. Organisms and cells will be concentrated. Culture NO GROWTH 6 DAYS Culture, Blood 1 [[id number]] Collected: 08/30/21 0953 Order Status: Completed Specimen: Blood Updated: 09/04/21 1024 Specimen Description .BLOOD Special Requests 10ML R ARM Culture NO GROWTH 5 DAYS Culture, Blood 1 [[id number]] (Abnormal) Collected: 08/30/21 1001 Order Status: Completed [...] Chain Reaction (PCR) results called to and readback by: BAUTISTA Greenfield at 0425 on 08/31/21 Culture, Respiratory [[id number]] (Abnormal) Collected: 08/30/21 2341 Order Status: Completed [...] Resulted: 09/02/21 08:28 MRSA DNA Probe, Nasal [[id number]] (Abnormal) Collected: 08/29/21 0813 Order Status: Completed [...] (Restricted: peds pts or suitable admitted adults) [[id number]] (Abnormal) Collected: 08/30/21 1115 Order Status: Completed [...] day [facility] Jared Hernandez MD [employer] OFFICE: Thank you for allowing us to [...] meaning can be extrapolated by contextual diversion. * Nay Mcmullen MD - 09/11/2021 12:19 PM EDT Images from the original note [...] have pericardial effusion s/p pericardiocentesis with 37 mlof dark fluid removed. subsequently developed respiratory failure [...] includes Penis surgery (01/31/2016). Medications: Reviewed in Epic Allergies: Food and Tomato Social History: reports that he has been smoking. He has a 15.00 pack-year smoking history. He doesnot have any smokeless tobacco history on file. [...] for nausea, vomiting, diarrhea, constipation, abdominal pain, Dysphagia,hematemesis and hematochezia Genitourinary: negative for frequency, dysuria, [...] far for malignancy Outpatient evaluation by endocrinology * Alejandra Seo, GEOGRAPHIC INFORMATION SYSTEM SURVEYOR - 09/11/2021 11:28 AM EDT Physical Therapy Facility/Department: [address] Physical Therapy Progress Note Name: Elias Gaminoleslie : 1985 Date of Service: 09/11/2021 Discharge Recommendations: Patient would benefit from continued therapy after discharge Patient Diagnosis(es): The primary encounter diagnosis was Acute heart failure, unspecified heart failure type (HCC). Diagnoses of Acute pulmonary edema (HCC), Pericardial effusion with cardiac tamponade, and Acute respiratory failure, unspecified whether with hypoxia or hypercapnia (HCC) were alsopertinent to this visit. Past Medical History: has a past medical history of Priapism, unspecified. Past Surgical History: has a past surgical history that includes Penis surgery (01/31/2016). 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 [facility] Office: [phone] Sony Raymond DO, Brodie Campos DO, Skip Diggs DO, Rubén Swain DO, Lee Ann Saldaña MD, Love Cortez MD, Sultana Harley MD, Solange Mercer MD, Jennifer Guo MD, Augusto Santizo MD, Lukas Angulo MD, Avelino Kent DO, Yanelis Grijalva MD, Fly Zapata DO, Jeaneth Begum MD, John Ricks MD, Madison Raymond DO, Nasra Schulte MD, Alessio Bhat MD, Jerry Davis DO,Justin Gaines MD, Yan Feliciano MD, Mayra Chicas, DB2 DEVELOPER, Karlie Kenney, DB2 DEVELOPER, Omkar Colunga,DB2 DEVELOPER, Riri Serna, DB2 DEVELOPER, Dseire Harley, DB2 DEVELOPER, Ariel Stewart, DB2 DEVELOPER, Ben Cesar, PA-C, Jennifer Magaña, DNP, Patricia Harrington, DB2 DEVELOPER, Pauline Charles, DB2 DEVELOPER, Kelli Sarah, DB2 DEVELOPER, Sherron Ngo, LABORER AIRPORT MAINTENANCE, Kellen Mabry, DNP, Nyasia Lea, DB2 DEVELOPER, Elizabeth Cummings, DB2 DEVELOPER, Kellie Mora, DB2 DEVELOPER [facility] IN-PATIENT SERVICE [facility] Progress Note 09/11/2021 9:09 AM Name: Elias Walker Acct: [id number] [facility] Day: 13 Admit Date: 08/29/2021 1:02 AM PCP: No primary care provider on file. Code Status: Full Code Subjective: C/C: Chief Complaint Patient presents with Shortness of Breath [facility], cardiac tamponade Chest Pain Interval History Status: improved. Patient seen and examined at bedside, no acute events overnight. Seen after coming back from imaging Feels okay, ambulating much better Family at bedside Patient denies any chest pain, shortness of breath, chills, fevers, nausea or vomiting. Patient vitals, labs and all providers notes were reviewed,from overnight shift and morning updateswere noted and discussed with the nurse Brief History: 36 year-old male who presented to OSH with hypertension and shortness of breath. Found to have pericardial effusion and sent to . for further eval. He underwent pericardiocentesis with only 37 ccof dark fluid removed. He subsequently developed respiratory failure and was intubated. He had a positive blood culture (/) on 08/30 for group C strep. Repeat cultures on 08/31 negative. He also grewMRSA in his sputum. He developed neurologic deficits and underwent MRI which revealed multifocal infarcts. His CESAR was negative and EF maintained at 50%. No evidence of atrial fibrillation was appreciated. Additionally, he developed OZZIE with peak creatinine of 1.99. Nephrology was consulted and hisAKI was attributed to ATN in the setting of sepsis. It is unclear what his baseline creatinine is as his last labs were from 2015. Interestingly, he was found to have hypercalcemia and significantly elevated PTH. He was administered calcitonin and a parathyroid nuclear scan was performed, which wasunremarkable. He was treated initially with cefepime and [...] which was unremarkable. His rheumatologic work-up was negative.CESAR negative and EF maintained with no evidence of atrial fibrillation as described above. Most like ly diagnosis is septic emboli. Review of Systems: [...] has a 15.00 pack-year smoking history. He doesnot have any smokeless tobacco history on file. [...] No results for input(s): PROT, LABALBU, LABA1C, B9SSCOO, D0MFKRC, FT4, TSH, AST, ALT, LDH, GGT, ALKPHOS, LABGGT, BILITOT, BILIDIR, AMMONIA, AMYLASE, LIPASE, LACTATE, CHOL, HDL, LDLCHOLESTEROL, CHOLHDLRATIO, TRIG, VLDL, FFD98LP, PHENYTOIN, PHENYF, URICACID, POCGLU in the last 72 hours. ABG: Lab Results Component Value Date/Time POCPH 7.392 09/06/2021 04:41 AM POCPCO2 48.2 09/06/2021 04:41 AM POCPO2 98.0 09/06/2021 04:41 AM POCHCO3 29.3 09/06/2021 04:41 AM NBEA 2 09/03/2021 04:09 AM PBEA 4 09/06/2021 04:41 AM [id number] 98 09/06/2021 04:41 AM FIO2 40.0 09/06/2021 [...] Cerebral embolism 09/08/2021 Yes Cerebrovascular accident (CVA) ([facility]) 09/10/2021 Yes Plan: # Embolic multiinfarct CVA: [...] with Dr. Henao. Will have midline placed. Willneed rocephin throught 09/28 - repeat blood cultures [...] bid and nifedipine ER 30 mg daily #Hyperparathyroidism/hypercalcemia - NM parathyroid scan unremarkable. Calcium improved. Check PTHrp. Will continue to monitor. Hematology to evaluate. Work up for MM is #Pericardial effusion - unclear etiology. Reviewed fluid studies. Resolved Disposition: stable for discharge, patients wants to go home Solange Mercer MD 09/11/2021 9:09 AM * Ashish Henao MD - 09/10/2021 4:39 PM EDT Images from the original note [...] coverage remains the issue. Infection Control Recommendations: [place] precautions Discharge Planning: Estimated Length of IV [...] complaining of shortness of breath and work-up inthe seem to suggest CHF and a CT [...] and an echocardiogram showed moderate pericardial effusion andtechnically challenging evaluation there was no evidence of tamponade noted. 35 to 40 cc of fluid drained at pericardiocentesis in the emergency department. The patient is being treated for pulmonary edema and during the hospital stay he has been noted to have had fevers with a T-max of 101.3 degrees and was started on empiric antimicrobial therapy and Iwas asked to evaluate and help with antibiotic choice. The patient did undergo a CESAR that did not show any evidence of valvular heart disease/endocarditis The patient did have a new finding of bilateral Babinski's by the neurology service on 09/04/2021 hadMRI of the brain done that showed multi [...] were no complications encountered. Cardiovascular Diseases Fellow [facility] ONE XRAY VIEW OF THE CHEST 09/02/2021 [...] effusion and cardiomegaly. Cultures: Culture, Blood 1 [[id number]] Collected: 09/08/21 1000 Order Status: Completed Specimen: Blood Updated: 09/10/21 1041 Specimen Description .BLOOD Special Requests L HAND 10ML Culture NO GROWTH 2 DAYS Culture, Blood 1 [[id number]] Collected: 09/08/21 1004 Order Status: Completed Specimen: Blood Updated: 09/10/21 1040 Specimen Description .BLOOD Special Requests R HAND 10ML Culture NO GROWTH 2 DAYS Culture, Blood 1 [[id number]] Collected: 08/31/21 1515 Order Status: Completed Specimen: Blood Updated: 09/05/21 1553 Specimen Description .BLOOD Culture NO GROWTH 5 DAYS Culture, Blood 1 [[id number]] Collected: 08/31/21 1519 Order Status: Completed Specimen: Blood Updated: 09/05/21 1531 Specimen Description .BLOOD Culture NO GROWTH 5 DAYS Culture, Body Fluid [[id number]] (Abnormal) Collected: 08/29/21 0342 Order Status: Completed Specimen: Body Fluid Updated: 09/04/21 1436 Specimen Description .FLUID .PERICARDIAL FLUID Direct Exam RARE NEUTROPHILS Abnormal NO BACTERIA SEEN Gram stain made from cytocentrifuged specimen. Organisms and cells will be concentrated. Culture NO GROWTH 6 DAYS Culture, Blood 1 [[id number]] Collected: 08/30/21 0953 Order Status: Completed Specimen: Blood Updated: 09/04/21 1024 Specimen Description .BLOOD Special Requests 10ML R ARM Culture NO GROWTH 5 DAYS Culture, Blood 1 [[id number]] (Abnormal) Collected: 08/30/21 1001 Order Status: Completed [...] Chain Reaction (PCR) results called to and readback by: BAUTISTA Greenfield at 0425 on 08/31/21 Culture, Respiratory [[id number]] (Abnormal) Collected: 08/30/21 2341 Order Status: Completed [...] Resulted: 09/02/21 08:28 MRSA DNA Probe, Nasal [[id number]] (Abnormal) Collected: 08/29/21 0813 Order Status: Completed [...] (Restricted: peds pts or suitable admitted adults) [[id number]] (Abnormal) Collected: 08/30/21 1115 Order Status: Completed [...] [facility] Ashish Henao MD [employer] messaging OFFICE: Thank you for allowing us [...] meaning can be extrapolated by contextual diversion. * Lizzie Xiong, GEOGRAPHIC INFORMATION SYSTEM SURVEYOR - 09/10/2021 2:16 PM EDT Physical Therapy Facility/Department: [address] [place] Physical Therapy daily treatment note [...] whether with hypoxia or hypercapnia (HCC) were alsopertinent to this visit. Assessment Body Structures, Functions, [...] times per week Current Treatment Recommendations: Strengthening,Neuromuscular re- education,Safety education & training,Patient/Caregiver education & training,Endurance training,Balance training,Functional mobility training,Transfer training,ADL/Self-care training,IADL training,Gait training,Stair training,Home exercise program,Equipment evaluation, education, & procurement,Therapeutic activities Safety Devices Type of Devices: Call light within reach,Chair alarm in place,Left in chair Restraints Restraints Initially in Place: No Restrictions Restrictions/Precautions Restrictions/Precautions: Fall Risk Required Braces or Orthoses?: No Position Activity Restriction Other position/activity restrictions: 08/29 intubated, 09/06 extubated Subjective Pain: pt denied [...] increase stepm length and increase DAGO, fair return2, LOB with therapist assist, WC follow for [...] Treatment Minutes: 23 Minutes Lizzie Xiong PTA * Michael Parsons OT - 09/10/2021 1:52 PM EDT Occupational Therapy Facility/Department: [address] Occupational Therapy Initial Assessment Name: Elias Walker : 1985 Date of Service: 09/10/2021 Discharge Recommendations: Further therapy recommended at discharge. Patient Diagnosis(es): The primary encounter diagnosis was Acute heart failure, unspecified heart failure type (HCC). Diagnoses of Acute pulmonary edema (HCC), Pericardial effusion with cardiac tamponade, and Acute respiratory failure, unspecified whether with hypoxia or hypercapnia (HCC) were alsopertinent to this visit. Past Medical History: has a past medical history of Priapism, unspecified. Past Surgical History: has a past surgical history that includes Penis surgery (01/31/2016). Assessment Performance deficits / Impairments: Decreased functional mobility ;Decreased ADL status;Decreased cognition;Decreased safe awareness;Decreased balance;Decreased high-level IADLs Assessment: Pt agreeable to OT amaury this date. Pt lying supine upon arrival to session. Pt completed supine <> sit with SBA and VCs to use bedrails for assistance. MMT/ROM assessed while seatedEOB, demonstrating dynamic sitting balance with SBA. 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 Pt [...] Hand Dominance Hand Dominance: Right AM-PAC Score AM-[facility] Inpatient Daily Activity Raw Score: 19 (09/10/21 1353) AM-[facility] Inpatient ADL T-Scale Score : 40.22 (09/10/21 [...] Code Treatment Minutes: 23 Minutes TIEN Garcia * Amber Powers RD - 09/10/2021 11:51 AM EDT Comprehensive Nutrition Assessment Type and Reason for [...] loss Fluid Accumulation: No significant fluid accumulation Warehouse Delivery Manager Strength: Not Performed Nutrition Assessment: Pt reports [...] Anthropometric Measures: Height: 5' 4 (162.6 cm) [place] Body Weight (IBW): 130 lbs (59 kg) [...] Used for Energy Requirements: Current Energy (kcal/day): 8780-8924 kcals/day Weight Used for Protein Requirements: [place] Protein (g/day): 120 g/day Method Used for [...] Physical Signs/Symptoms Outcomes: Biochemical Data,Nutrition Focused Physical Findings,Weight,FluidStatus or Edema Discharge Planning: No discharge needs at this time Amber Powers RD Contact: [phone] * Ben Cesar PA-C - 09/10/2021 11:49 AM EDT Images from the original note were not included. [facility] Office: [phone] Sony Raymond DO, Brodie Campos DO, Skip Diggs DO, Rubén Swain, DO, Lee Ann Saldaña MD, Love Cortez MD, Sultana Harley MD, Solange Mercer MD, Jennifer Guo MD, Augusto Santizo MD, Lukas Angulo MD, Avelino Kent DO, Yanelis Grijalva MD, Fly Zapata, DO, Jeaneth Begum MD, John Ricks MD, Madison Raymond DO, Nasra Schulte MD, Alessio Bhat MD, Jerry Davis DO,Justin Gaines MD, Yan Feliciano MD, Mayra Chicas, DB2 DEVELOPER, Karlie Kenney DB2 DEVELOPER, Omkar Colunga,DB2 DEVELOPER, Riri Serna, DB2 DEVELOPER, Desire Harley, DB2 DEVELOPER, Ariel Stewart, DB2 DEVELOPER, Ben Cesar, PA-C, Jennifer Magaña, DNP, Patricia Harrington, DB2 DEVELOPER, Pauline Charles, DB2 DEVELOPER, Kelli Sarah, DB2 DEVELOPER, Sherron Ngo, [facility], Kellen Mabry, DNP, Nyasia Lea, DB2 DEVELOPER, Elizabeth Cummings, DB2 DEVELOPER, Kellie Mora, DB2 DEVELOPER [facility] IN-PATIENT SERVICE [facility] Progress Note 09/10/2021 11:49 AM Name: Elias Walker Acct: [id number] Room: [address] [place] [address] Day: 12 Admit Date: 08/29/2021 1:02 AM PCP: No primary care provider on file. Code Status: Full Code Subjective: C/C: Chief Complaint Patient presents with Shortness of Breath [facility], cardiac tamponade Chest Pain Interval History Status: improved. Pt seen and evaluated this morning. He continues to improve daily. He is denying any new complaints. We are awaiting evaluation by PM&R for potential inpatient rehab consideration. Brief History: 36 year-old male who presented to OSH with hypertension and shortness of breath. Found to have pericardial effusion and sent to St. for further eval. He underwent pericardiocentesis with only 37 ccof dark fluid removed. He subsequently developed respiratory failure and was intubated. He had a positive blood culture (03/07) on 08/30 for group C strep. Repeat cultures on 08/31 negative. He also grewMRSA in his sputum. He developed neurologic deficits and underwent MRI which revealed multifocal infarcts. His CESAR was negative and EF maintained at 50%. No evidence of atrial fibrillation was appreciated. Additionally, he developed OZZIE with peak creatinine of 1.99. Nephrology was consulted and hisAKI was attributed to ATN in the setting of sepsis. It is unclear what his baseline creatinine is as his last labs were from 2015. Interestingly, he was found to have hypercalcemia and significantly elevated PTH. He was administered calcitonin and a parathyroid nuclear scan was performed, which wasunremarkable. He was treated initially with cefepime and [...] which was unremarkable. His rheumatologic work-up was negative.CESAR negative and EF maintained with no evidence of atrial fibrillation as described above. Most like ly diagnosis is septic emboli. Review of Systems: [...] has a 15.00 pack-year smoking history. He doesnot have any smokeless tobacco history on file. [...] 04:09 AM PBEA 4 09/06/2021 04:41 AM [id number] 98 09/06/2021 04:41 AM FIO2 40.0 09/06/2021 [...] of atrial fibrillation. 1 blood culture positive forstrep C from 08/30, repeats negative. Hepatitis, ANCA, MARIO, RF, anti-cardiolipin Ab, HIV negative. - MRA of head and neck unremarkable - appreciate neurology recommendations - rheumatology following #Sepsis, unclear source. Strep C bacteremia - continue rocephin as ordered per ID, discussed with Dr. Henao. Will have midline placed. Willneed rocephin throught 09/28 - repeat blood cultures [...] bid and nifedipine ER 30 mg daily #Hyperparathyroidism/hypercalcemia - NM parathyroid scan unremarkable. Calcium improved. Check PTHrp. Will continue to monitor. Hematology to evaluate. Will need endocrine referral as OP #Pericardial effusion - unclear etiology. Reviewed fluid studies. Resolved Disposition: stable for discharge, awaiting PM&R assessment. Ben Cesar PA-C 09/10/2021 11:49 AM * Artur Qiuñones MD - 09/10/2021 9:56 AM EDT [facility] Neurology IN-PATIENT SERVICE NEUROLOGY PROGRESS NOTE Date: [...] male who presents with Shortness of Breath ([facility] [place], cardiac tamponade) and Chest Pain . [...] 20 Ht 5' 4 (1.626 m) Wt 225lb 12 oz (102.4 kg) SpO2 96% BMI [...] 83 Lab Results Component Value Date TRIG (H) [...] on this case tomorrow Artur Quiñones MD [facility] Neurology * Talib Saldaña MD - 09/10/2021 9:45 AM EDT Renal Progress Note Patient : Elias Walker; 36 y.o. Location: 0418/0418-02 Attending: Solange Mercer MD Admit Date: 08/29/2021 Hospital Day: 12 Subjective: Patient was seen and examined. No acute events overnight Patient resting comfortably in bed this morning, states he did work with physical therapy today andseems to doing better. Urine output 900 mL [...] BMP: Recent Labs 09/08/21 1328 09/09/21 1429 07/08/22 0644 NA 139 139 142 K 3.7 [...] aggravated by nephrotoxic agents including ibuprofen, Bactrim andwas recently given vancomycin as well. Exact baseline is not available seems to be around 1.6-1.8. 2. Bacteremia versus sepsis with blood culture positivity on August 30, 2021 positive for beta-hemolytic streptococci group C 3. Respiratory panel on August 30, 2021 positive for rhino/enterovirus PCR. 4. Acute respiratory failure multifactorial requiring mechanical ventilation now extubated. Patientwas extubated September 06, 2021. 5. Hypercalcemia likely [...] a renal diet/TF. Avoid nephrotoxic drugs/contrast exposure. Sheng Hinson MD Attending Physician Statement I have discussed the care of this patient, including pertinent history and exam findings, with the Resident/DB2 DEVELOPER. I have reviewed and edited the salguero elements of all parts of the encounter with the Resident/DB2 DEVELOPER. I agree with the assessment, plan and orders as documented by the Resident/DB2 DEVELOPER. Talib Saldaña MD [facility] This note is created with the assistance of a speech-recognition program. While intending to generate a document that actually reflects the content of the visit, no guarantees can be provided that every mistake has been identified and corrected by editing. * Kiley Epperson APRN - JOSE - 09/09/2021 3:47 PM EDT NEUROLOGY INPATIENT PROGRESS NOTE 09/09/2021 Current Exam: Chart reviewed. Discussed with RN. Is ambulating with PT. Improving everyday. Has no acute complaints. Some answers are mildly delayed. Brief History: Elias Walker is a 36 y.o. male who was admitted as a transfer from outside hospital on 08/29/2021where he initially presented with shortness of breath and chest pain. Was found to have cardiac tamponade with pericardial effusion and was transferred to [facility]. Has had difficulties with hypertension. Has OZZIE. [...] MG per extended release tablet Take 1 tabletby mouth daily cephALEXin (KEFLEX) 500 MG capsule [...] 4 (1.626 m) Wt 225 lb 12 oz(102.4 kg) SpO2 93% BMI 38.75 kg/m Blood [...] to ensure the accuracy of this automated physician relations representative, some errors in physician relations representative may have occurred. * Lizzie Xiong PTA - 09/09/2021 3:23 PM EDT Physical Therapy Facility/Department: [address] [place] Physical Therapy Daily treatment note Name: Elias [...] whether with hypoxia or hypercapnia (HCC) were alsopertinent to this visit. Assessment Body Structures, Functions, Activity Limitations Requiring Skilled Therapeutic Intervention: Decreased functional mobility ;Decreased balance;Decreased coordination;Decreased strength;Decreased ADL status;Decreased endurance;Decreased high-level IADLs Assessment: Pt bed mobility performed SBA, pt MIN A for STS, stood 3-4 minutes , competed 8 STS t/otreatment, pt ambulated with RW 50 ft x2 [...] times per week Current Treatment Recommendations: Strengthening,Neuromuscular re- education,Safety education & training,Patient/Caregiver education & training,Endurance training,Balance [...] Treatment Minutes: 38 Minutes Lizzie Xiong PTA * Ever Clarke RN - 09/09/2021 1:14 PM EDT Patient's mom updated via phone. * Talib Saldaña MD - 09/09/2021 11:30 AM EDT Renal Progress Note Patient : Elias Walker; 36 y.o. Location: [facility] [place]8/0418-02 Attending: Solange Mercer MD Admit Date: 08/29/2021 [...] CALCIUM 10.3 10.5* 10.4 Magnesium: Recent Labs 09/07/21175209/08/21 0643 MG 2.4 2.3 MARIO: Lab Results [...] aggravated by nephrotoxic agents including ibuprofen, Bactrim andwas recently given vancomycin as well. Exact baseline is not available seems to be around 1.6-1.8. 2. Bacteremia versus sepsis with blood culture positivity on August 30, 2021 positive for beta-hemolytic streptococci group C 3. Respiratory panel on August 30, 2021 positive for rhino/enterovirus PCR. 4. Acute respiratory failure multifactorial requiring mechanical ventilation now extubated. Patientwas extubated September 06, 2021. 5. Hypercalcemia likely [...] a renal diet/TF. Avoid nephrotoxic drugs/contrast exposure. Sheng Hinson MD Attending Physician Statement I have discussed the care of this patient, including pertinent history and exam findings, with the Resident/DB2 DEVELOPER. I have reviewed and edited the salguero elements of all parts of the encounter with the Resident/DB2 DEVELOPER. I agree with the assessment, plan and orders as documented by the Resident/DB2 DEVELOPER. Talib Saldaña MD [facility] This note is created with the assistance of a speech-recognition program. While intending to generate a document that actually reflects the content of the visit, no guarantees can be provided that every mistake has been identified and corrected by editing. * Ben Cesar PA-C - 09/09/2021 9:30 AM EDT Images from the original note were not included. [facility] Office: [phone] Sony Raymond DO, Brodie Campos DO, Skip Diggs DO, Rubén Swain DO, Lee Ann Saldaña MD, Love Cortez MD, Sultana Harley MD, Solange Mercer MD, Jennifer Guo MD, Augusto Santizo MD, Lukas Angulo MD, Avelino Kent DO, Yanelis Grijalva MD, Fly Zapata DO, Jeaneth Begum MD, John Ricks MD, Madison Raymond DO, Nasra Schulte MD, Alessio Bhat MD, Jerry Davis DO,Justin Gaines MD, Yan Feliciano MD, Mayra Chicas CNP, Karlie Kenney CNP, Omkar Colunga CNP, Riri Serna, DB2 DEVELOPER, Desire Harley, DB2 DEVELOPER, Ariel Stewart, JOSE, Ben Cesar PA-C, Jennifer Magaña, DNP, Patricia Harrington, DB2 DEVELOPER, Pauline Charles, DB2 DEVELOPER, Kelli Sarah, DB2 DEVELOPER, Sherron Ngo, LABORER AIRPORT MAINTENANCE, Kellen Mabry, DNP, Nyasia Lea, DB2 DEVELOPER, Elizabeth Cummings, DB2 DEVELOPER, Kellie Mora, DB2 DEVELOPER [facility] IN-PATIENT SERVICE [facility] Progress Note 09/09/2021 9:30 AM Name: Elias Walker Acct: [id number] Room: [facility] Day: 11 Admit Date: 08/29/2021 1:02 AM PCP: No primary care provider on file. Code Status: Full Code Subjective: C/C: Chief Complaint Patient presents with Shortness of Breath [facility], cardiac tamponade Chest Pain Interval History Status: improved. Pt seen and evaluated this morning. He is feeling better. He is more lucid daily. He ate breakfast this morning. He has no new neurologic complaints. He is denying any new complaints. Brief History: 36 year-old male who presented to OSH with hypertension and shortness of breath. Found to have pericardial effusion and sent to . for further eval. He underwent pericardiocentesis with only 37 ccof dark fluid removed. He subsequently developed respiratory failure and was intubated. He had a positive blood culture (03/07) on 08/30 for group C strep. Repeat cultures on 08/31 negative. He also grewMRSA in his sputum. He developed neurologic deficits and underwent MRI which revealed multifocal infarcts. His CESAR was negative and EF maintained at 50%. No evidence of atrial fibrillation was appreciated. Additionally, he developed OZZIE with peak creatinine of 1.99. Nephrology was consulted and hisAKI was attributed to ATN in the setting of sepsis. It is unclear what his baseline creatinine is as his last labs were from 2015. Interestingly, he was found to have hypercalcemia and significantly elevated PTH. He was administered calcitonin and a parathyroid nuclear scan was performed, which wasunremarkable. He was treated initially with cefepime and [...] which was unremarkable. His rheumatologic work-up was negative.CESAR negative and EF maintained with no evidence of atrial fibrillation as described above. Most like ly diagnosis is septic emboli. Review of Systems: [...] has a 15.00 pack-year smoking history. He doesnot have any smokeless tobacco history on file. [...] 04:09 AM PBEA 4 09/06/2021 04:41 AM [id number] 98 09/06/2021 04:41 AM FIO2 40.0 09/06/2021 [...] of atrial fibrillation. 1 blood culture positive forstrep C from 08/30, repeats negative. Hepatitis, ANCA, MARIO, RF, anti-cardiolipin Ab, HIV negative. - MRA of head and neck unremarkable - appreciate neurology recommendations - rheumatology following #Sepsis, unclear source. Strep C bacteremia - continue rocephin as ordered per ID, discussed with Dr. Henao. Will have midline placed. Willneed rocephin throught 09/28 - repeat blood cultures [...] bid and nifedipine ER 30 mg daily #Hyperparathyroidism/hypercalcemia - NM parathyroid scan unremarkable. Calcium improved. Check PTHrp. Will continue to monitor. #Hypokalemia - resolved #Pericardial effusion - unclear etiology. Reviewed fluid studies. Resolved Ben Cesar PA-C 09/09/2021 9:30 AM * Ashish Henao MD - 09/09/2021 9:07 AM EDT Images from the original note [...] is verbalizing/communicating much better Infection Control Recommendations: [place] precautions Discharge Planning: Estimated Length of IV [...] complaining of shortness of breath and work-up inthe seem to suggest CHF and a CT [...] and an echocardiogram showed moderate pericardial effusion andtechnically challenging evaluation there was no evidence of tamponade noted. 35 to 40 cc of fluid drained at pericardiocentesis in the emergency department. The patient is being treated for pulmonary edema and during the hospital stay he has been noted to have had fevers with a T-max of 101.3 degrees and was started on empiric antimicrobial therapy and Iwas asked to evaluate and help with antibiotic choice. The patient did undergo a CESAR that did not show any evidence of valvular heart disease/endocarditis The patient did have a new finding of bilateral Babinski's by the neurology service on 09/04/2021 hadMRI of the brain done that showed multi [...] Min: 97.5 F (36.4 C) Max: 98.8 F(37.1 C) The patient is seen and evaluated [...] were no complications encountered. Cardiovascular Diseases Fellow [facility] ONE XRAY VIEW OF THE CHEST 09/02/2021 [...] effusion and cardiomegaly. Cultures: Culture, Blood 1 [[id number]] Collected: 08/31/21 1515 Order Status: Completed Specimen: Blood Updated: 09/05/21 1553 Specimen Description .BLOOD Culture NO GROWTH 5 DAYS Culture, Blood 1 [[id number]] Collected: 08/31/21 1519 Order Status: Completed Specimen: Blood Updated: 09/05/21 1531 Specimen Description .BLOOD Culture NO GROWTH 5 DAYS Culture, Body Fluid [[id number]] (Abnormal) Collected: 08/29/21 0342 Order Status: Completed Specimen: Body Fluid Updated: 09/04/21 1436 Specimen Description .FLUID .PERICARDIAL FLUID Direct Exam RARE NEUTROPHILS Abnormal NO BACTERIA SEEN Gram stain made from cytocentrifuged specimen. Organisms and cells will be concentrated. Culture NO GROWTH 6 DAYS Culture, Blood 1 [[id number]] Collected: 08/30/21 0953 Order Status: Completed Specimen: Blood Updated: 09/04/21 1024 Specimen Description .BLOOD Special Requests 10ML R ARM Culture NO GROWTH 5 DAYS Culture, Blood 1 [[id number]] (Abnormal) Collected: 08/30/21 1001 Order Status: Completed [...] Chain Reaction (PCR) results called to and readback by: BAUTISTA Greenfield at 0425 on 08/31/21 Culture, Respiratory [[id number]] (Abnormal) Collected: 08/30/21 2341 Order Status: Completed [...] Resulted: 09/02/21 08:28 MRSA DNA Probe, Nasal [[id number]] (Abnormal) Collected: 08/29/21 0813 Order Status: Completed [...] (Restricted: peds pts or suitable admitted adults) [[id number]] (Abnormal) Collected: 08/30/21 1115 Order Status: Completed [...] day [facility] Ashish Henao MD [employer] OFFICE: Thank you for allowing us [...] meaning can be extrapolated by contextual diversion. * Mariza Nino RN - 09/09/2021 6:08 AM EDT Patient is awake, talking, and oriented x 3. Asking for blankets and talking about his dog. Will continue to monitor. * Mariza Nino RN - 09/09/2021 3:39 AM EDT Patient has remained in bed and sleeping during the duration of the writers shift. Patient checked Q1h for bowel movements and offered turns to patient. Patient declined and has remained bowel continent thus far. * Mariza Nino RN - 09/09/2021 2:42 AM EDT Patient's girlfriend called up for report on patient. Repair Mechanic busy in another room. Patient's girlfriend told critical care unit manager that she wants to bring pizza rolls up to the unit to be heated for patient because he does not like hospital food. career law clerk advised patient's girlfriend to call back in the morning for this question, the request will be forwarded. * Talib Saldaña MD - 09/08/2021 3:18 PM EDT Renal Progress Note Patient : Elias Walker; 36 y.o. Location: 0418/0418-02 Attending: Solange Mercer MD Admit Date: 08/29/2021 Hospital Day: 10 Subjective: Patient is initially transferred from [facility] due to complaints of chest pain, had syncopal episode there found to be hypertensive, found to have pericardial effusion transferred to [facility] underwent pericardiocentesis with 37 cc of dark fluid drainage, had respiratory failure required mechanical ventilation admitted to the ICU. 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 Nephrology following due [...] mg/dl today. Calcium was improved to 10.4. Gkgger129, potassium 3.7, chloride 102, bicarb 23, BUN [...] for embolic infarct. Small chronic infarcts noted inthe centrum semiovale bilaterally, right putamen and right [...] aggravated by nephrotoxic agents including ibuprofen, Bactrim andwas recently receiving vancomycin as well. Exact baseline not available but seems to be currently running around 1.6- 1.8 range. 2. Bacteremia/sepsis with Blood culture 08/30/2021 was positive for beta- hemolytic streptococci group C. 3. Respiratory panel 08/30/2021 [...] exposure. Talib Saldaña MD [facility] This note is created with the assistance of a speech-recognition program. While intending to generate a document that actually reflects the content of the visit, no guarantees can be provided that every mistake has been identified and corrected by editing. * Ashish Henao MD - 09/08/2021 12:47 PM EDT Images from the original note [...] is verbalizing/communicating much better Infection Control Recommendations: [place] precautions Discharge Planning: Estimated Length of IV [...] complaining of shortness of breath and work-up inthe seem to suggest CHF and a CT [...] and an echocardiogram showed moderate pericardial effusion andtechnically challenging evaluation there was no evidence of tamponade noted. 35 to 40 cc of fluid drained at pericardiocentesis in the emergency department. The patient is being treated for pulmonary edema and during the hospital stay he has been noted to have had fevers with a T-max of 101.3 degrees and was started on empiric antimicrobial therapy and Iwas asked to evaluate and help with antibiotic choice. The patient did undergo a CESAR that did not show any evidence of valvular heart disease/endocarditis The patient did have a new finding of bilateral Babinski's by the neurology service on 09/04/2021 hadMRI of the brain done that showed multi [...] C) Min: 97.7 F (36.5 C) Max: 100.1F (37.8 C) The patient is seen and [...] having to do the MRI and keep stillwhich was difficult for him. Review of Systems [...] were no complications encountered. Cardiovascular Diseases Fellow [facility] ONE XRAY VIEW OF THE CHEST 09/02/2021 [...] effusion and cardiomegaly. Cultures: Culture, Blood 1 [[id number]] Collected: 08/31/21 1515 Order Status: Completed Specimen: Blood Updated: 09/05/21 1553 Specimen Description .BLOOD Culture NO GROWTH 5 DAYS Culture, Blood 1 [[id number]] Collected: 08/31/21 1519 Order Status: Completed Specimen: Blood Updated: 09/05/21 1531 Specimen Description .BLOOD Culture NO GROWTH 5 DAYS Culture, Body Fluid [[id number]] (Abnormal) Collected: 08/29/21 0342 Order Status: Completed Specimen: Body Fluid Updated: 09/04/21 1436 Specimen Description .FLUID .PERICARDIAL FLUID Direct Exam RARE NEUTROPHILS Abnormal NO BACTERIA SEEN Gram stain made from cytocentrifuged specimen. Organisms and cells will be concentrated. Culture NO GROWTH 6 DAYS Culture, Blood 1 [[id number]] Collected: 08/30/21 0953 Order Status: Completed Specimen: Blood Updated: 09/04/21 1024 Specimen Description .BLOOD Special Requests 10ML R ARM Culture NO GROWTH 5 DAYS Culture, Blood 1 [[id number]] (Abnormal) Collected: 08/30/21 1001 Order Status: Completed [...] Chain Reaction (PCR) results called to and readback by: BAUTISTA Greenfield at 0425 on 08/31/21 Culture, Respiratory [[id number]] (Abnormal) Collected: 08/30/21 2341 Order Status: Completed [...] Resulted: 09/02/21 08:28 MRSA DNA Probe, Nasal [[id number]] (Abnormal) Collected: 08/29/21 0813 Order Status: Completed [...] (Restricted: peds pts or suitable admitted adults) [[id number]] (Abnormal) Collected: 08/30/21 1115 Order Status: Completed [...] day [facility] Ashish Henao MD [employer] OFFICE: Thank you for allowing us to [...] meaning can be extrapolated by contextual diversion. * Lizzie Xiong PTA - 09/08/2021 12:46 PM EDT Images from the original note were not included. Physical Therapy Physical Therapy Cancel Note DATE: 09/08/2021 NAME: Elias Walker : 1985 Patient not seen this date for Physical Therapy due to: Testing: Pt off the floor for MRI, therapy will CB as time allows or resume 09/09 * Jason Jameson - 09/08/2021 11:47 AM EDT Patient is off the unit during vital checks. * Michael Parsons OT - 09/08/2021 9:16 AM EDT Images from the original note were not included. [facility] Occupational Therapy Not Seen Note DATE: 09/08/2021 NAME: Elias Walker : 1985 Patient not seen this date for Occupational Therapy due to: Other: Pt requests to check back after breakfast as pt just returned to room from test. OT returnedto room and per RN pt was off floor at Nuclear Medicine and then would be going for an MRI. Next Scheduled Treatment: 09/09/2021 * Chuck Cosby RN - 09/07/2021 6:52 PM EDT Report given to BAUTISTA Lockett * Chuck Cosby RN - 09/07/2021 6:15 PM EDT Girlfriendarby Valverde took all of patient's belongings home. * Ashish Henao MD - 09/07/2021 3:38 PM EDT Images from the original note [...] to work-up the hypercalcemia Infection Control Recommendations: [place] precautions Discharge Planning: Estimated Length of IV [...] complaining of shortness of breath and work-up inthe seem to suggest CHF and a CT [...] and an echocardiogram showed moderate pericardial effusion andtechnically challenging evaluation there was no evidence of tamponade noted. 35 to 40 cc of fluid drained at pericardiocentesis in the emergency department. The patient is being treated for pulmonary edema and during the hospital stay he has been noted to have had fevers with a T-max of 101.3 degrees and was started on empiric antimicrobial therapy and Iwas asked to evaluate and help with antibiotic choice. The patient did undergo a CESAR that did not show any evidence of valvular heart disease/endocarditis The patient did have a new finding of bilateral Babinski's by the neurology service on 09/04/2021 hadMRI of the brain done that showed multi [...] is not clear whether he is truly understandingeverything that I am asking him. He does [...] the followinglabs: CBC with Differential: Recent Labs 09/06/21 0523 09/07/21 0553 WBC 9.7 9.7 HGB 12.8* 13.3 HCT 40.1* 40.8 PLT 357 428 LYMPHOPCT 16* 16* MONOPCT 12 9 BMP: Recent Labs 09/06/21 0509/07/21 0553 NA 147* 150* K 4.1 3.9 [...] were no complications encountered. Cardiovascular Diseases Fellow [facility] ONE XRAY VIEW OF THE CHEST 09/02/2021 [...] effusion and cardiomegaly. Cultures: Culture, Blood 1 [[id number]] Collected: 08/31/21 1515 Order Status: Completed Specimen: Blood Updated: 09/05/21 1553 Specimen Description .BLOOD Culture NO GROWTH 5 DAYS Culture, Blood 1 [[id number]] Collected: 08/31/21 1519 Order Status: Completed Specimen: Blood Updated: 09/05/21 1531 Specimen Description .BLOOD Culture NO GROWTH 5 DAYS Culture, Body Fluid [[id number]] (Abnormal) Collected: 08/29/21 0342 Order Status: Completed Specimen: Body Fluid Updated: 09/04/21 1436 Specimen Description .FLUID .PERICARDIAL FLUID Direct Exam RARE NEUTROPHILS Abnormal NO BACTERIA SEEN Gram stain made from cytocentrifuged specimen. Organisms and cells will be concentrated. Culture NO GROWTH 6 DAYS Culture, Blood 1 [[id number]] Collected: 08/30/21 0953 Order Status: Completed Specimen: Blood Updated: 09/04/21 1024 Specimen Description .BLOOD Special Requests 10ML R ARM Culture NO GROWTH 5 DAYS Culture, Blood 1 [[id number]] (Abnormal) Collected: 08/30/21 1001 Order Status: Completed [...] Chain Reaction (PCR) results called to and readback by: BAUTISTA Greenfield at 0425 on 08/31/21 Culture, Respiratory [[id number]] (Abnormal) Collected: 08/30/21 2341 Order Status: Completed [...] Resulted: 09/02/21 08:28 MRSA DNA Probe, Nasal [[id number]] (Abnormal) Collected: 08/29/21 0813 Order Status: Completed [...] (Restricted: peds pts or suitable admitted adults) [[id number]] (Abnormal) Collected: 08/30/21 1115 Order Status: Completed [...] day [facility] Ashish Henao MD [employer] OFFICE: Thank you for allowing us to [...] meaning can be extrapolated by contextual diversion. 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 Strength: Not Performed Nutrition Assessment: Pt extubated [...] Anthropometric Measures: Height: 5' 4 (162.6 cm) [place] Body Weight (IBW): 130 lbs (59 kg) [...] Used for Energy Requirements: Current Energy (kcal/day): 5916-4532 kcals/day Weight Used for Protein Requirements: [place] Protein (g/day): 120 g/day Fluid (ml/day): Per [...] Too soon to determine Juju Mishra RD, LD Contact: [phone] * Sadie Quintanilla DO - 09/07/2021 2:36 PM EDT Critical care team - Resident sign-out to medicine service Date and time: 09/07/2021 2:36 PM Patient's name: Elias Walker Patient's account/billing number: [id number] Patient's Date of : 1985 Age: 36 y.o. Date of Admission: 08/29/2021 1:02 AM Length of stay during current admission: 9 Primary Care Physician: No primary care provider on file. Code Status: Full Code Mode of physician to physician communication: [x] Via telephone [] In person Date and time of sign-out: 09/07/2021 2:36 PM Accepting Internal Medicine resident: Dr. Quintanilla Accepting Medicine team: Intermed Accepting team's attending: Dr. Guo Patient's current ICU Bed: 3002 Patient's assigned bed on floor: 2017 [] Med-Surg Monitored [x] Step-down [] Psychiatry ICU [] Psych floor Reason for ICU admission: Hypertensive emergency, Respiratory failure, pericardial effusion ICU course summary: BRIEF HISTORY: 36 y/o male PMH of asthma, ?HTN who was transferred from [facility] with chief complaints of chest pain. Patient had sharp chest pain radiating to the back and had a syncopal episode after chest pain. Patient went to [facility] for evaluation and was found to be hypertensive and discharged on metoprolol.Patient was found to be very hypertensive when he rechecked his blood pressure at home and patient went to [facility] for evaluation. On evaluation at [facility] patient was found to have pericardial effusion and was transferred to [facility] for further evaluation. At [facility] patient underwent pericardiocentesis draining 37 cc [...] did not show tamponade or vegetations. Patient wastransitioned to PO Coreg but blood pressures became soft. PO meds were on hold until patient becamehypertensive again 09/06/20. Coreg restarted, uptitrated to 12.5 mg BID. Patient with intermittent fevers. Positive for rhino/enterovirus. Resp culture positive for MRSA. Patient had recent viral illness per girlfriend. Was started on empiric antimicrobials. Blood culturegrew Group C strep. MRI also showed multiple [...] 29 Ht 5' 4 (1.626 m) Wt 225lb 12 oz (102.4 kg) SpO2 99% BMI [...] admitting resident will be following up the patientfrom now onwards on the floor. Sadie Quintanilla DO Emergency Medicine Resident Critical Care Service [facility] 09/07/2021, 2:36 PM EDT * Linda Garnica OT - 09/07/2021 2:20 PM EDT Images from the original note were not included. [facility] Occupational Therapy Not Seen Note DATE: 09/07/2021 NAME: Elias Walker : 1985 Patient not seen this date for Occupational Therapy due to: Other: Family member present in room, polite decline stating patient fatigued; Next Scheduled Treatment: Ck 09/08 * Falguni Sherman PT - 09/07/2021 1:30 PM EDT Physical Therapy Facility/Department: [place] [address] Physical Therapy Initial Assessment Name: Elias Walker : 1985 Date of Service: 09/07/2021 Discharge Recommendations: Further therapy recommended at discharge. Chief Complaint Patient presents with Shortness of Breath [facility], cardiac tamponade Chest Pain The patient is a 36 y.o. male who presents with Shortness of Breath ([facility], cardiac tamponade) and Chest Pain . The patient was seen and examined and the chart was reviewed. PT Equipment Recommendations Equipment Needed: No (Owns RW) Patient Diagnosis(es): The primary encounter diagnosis was Acute heart failure, unspecified heart failure type (HCC). Diagnoses of Acute pulmonary edema (HCC), Pericardial effusion with cardiac tamponade, and Acute respiratory failure, unspecified whether with hypoxia or hypercapnia (HCC) were alsopertinent to this visit. 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 Location: 3002/3002-01 Attending: Brian Gracia MD Admit Date: 08/29/2021 Hospital Day: 9 Subjective: Patient is initially transferred from [facility] due to complaints of chest pain, had syncopal episode there found to be hypertensive, found to have pericardial effusion transferred to [facility] underwent pericardiocentesis with 37 cc of dark fluid drainage, had respiratory failure required mechanical ventilation admitted to the ICU. 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 Nephrology following due to acute kidney injury. Patient was seen and examined. Now extubated and passed swallow study. No new issues reported overnight. Serum creatinine did improve to 1.74 mg/dl today. 2150, potassium 3.9, chloride 110, bicarb 26, BUN46, calcium 10.5. PTH 141.5. Urine output documented [...] for embolic infarct. Small chronic infarcts noted inthe centrum semiovale bilaterally, right putamen and right [...] turgor. Extremities: No edema. Labs: Recent Labs 09/05/2144709/06/21 0523 09/07/21 0553 WBC 8.0 9.7 9.7 RBC 4.19* 4.45 4.63 HGB 12.0* 12.8* 13.3 HCT 38.1* 40.1* 40.8 MCV 90.9 90.1 88.1 MCH 28.6 28.8 28.7 MCHC 31.5 31.9 32.6 RDW 12.5 12.2 12.5 PLT 305 357 428 MPV 10.3 10.3 10.0 BMP: Recent Labs 09/05/2144709/06/21 0523 09/07/21 0553 NA 145* 147* 150* K [...] aggravated by nephrotoxic agents including ibuprofen, Bactrim andwas recently receiving vancomycin as well. Exact baseline not available but seems to be currently running around 1.6- 1.8 range. 2. Bacteremia/sepsis with Blood culture 08/30/2021 was positive for beta- hemolytic streptococci group C. 3. Respiratory panel 08/30/2021 [...] exposure. Talib Saldaña MD [facility] This note is created with the assistance of a speech-recognition program. While intending to generate a document that actually reflects the content of the visit, no guarantees can be provided that every mistake has been identified and corrected by editing. * Artur Quiñones MD - 09/07/2021 9:04 AM EDT [facility] Neurology IN-PATIENT SERVICE NEUROLOGY PROGRESS NOTE Date: [...] male who presents with Shortness of Breath ([facility] tx, cardiac tamponade) and Chest Pain . [...] punctate infarcts including right cerebral peduncle and leftparamedian albino as well as strokes in both [...] 28 Ht 5' 4 (1.626 m) Wt 225lb 12 oz (102.4 kg) SpO2 95% BMI [...] side would rank 4/5 grasp and 4/5 footplantarflexion and dorsiflexion. He is able to lift the right leg off the bed briskly. Left side appears to be slightly weaker. I would rank 3/5 with regard to plantarflexion and dorsiflexion. He is able to lift the left leg off the bed with difficulty. His grasp appears to be slightlydecreased on the left compared to the right. [...] nonambulatory Diagnostics: Laboratory Testing: CBC: Recent Labs 09/05/21 0448 09/06/21 0523 09/07/21 0553 WBC 8.0 9.7 9.7 HGB 12.0* 12.8* 13.3 PLT 305 357 428 BMP: Recent Labs 09/05/21 0448 09/06/21 0523 09/07/21 0553 NA 145* 147* 150* K [...] physical therapy as tolerated Artur Quiñones MD [facility] Neurology * Sadie Quintanilla DO - 09/07/2021 7:05 AM EDT Critical Care Team - Daily Progress Note Date and time: 09/07/2021 7:06 AM Patient's name: Elias Walker Patient's account/billing number: [id number] Patient's Date of : 1985 Age: 36 y.o. Date of Admission: 08/29/2021 1:02 AM Length of stay during current admission: 9 Primary Care Physician: No primary care provider on file. Code Status: Full Code Reason for ICU admission: Cardiac Tamponade SUBJECTIVE: OVERNIGHT EVENTS: Patient was extubated yesterday to nasal cannula. Tolerated well. Saturating 90- 95% on 2L NC. Denies chest pain or shortness of breath. Does have some sore throat and hoarse voice, likely from intubation/ETT. Patient is awake and alert and following all commands. Denies needs. Has been increasinglyhypertensive since extubation. Coreg was restarted. Will likely need to titrate up and add Norvasc.Patient has PRN labetalol and hydralazine ordered. He received three doses of labetalol and one of hydralazine. After hydralazine patient became tachycardic 110s. Will discontinue. BRIEF HISTORY: PMH of asthma who was transferred from [facility] with chief complaints of chest pain. Patient had sharp chest pain radiating to the back and had a syncopal episode after chest pain. Patient went to [facility] for evaluation and was found to be hypertensive and discharged on metoprolol.Patient was found to be very hypertensive today on rechecking blood pressure at home and patient went to [facility] for evaluation. On evaluation at [facility] patient was found to have pericardial effusion and was transferred to [facility] for further evaluation. At [facility] patient underwent pericardiocentesis draining 37 cc [...] Humidification Source: HME Cuff Pressure (cm H2O): (supervisor microfilm duplicating unit) Skin Barrier Applied: No Laboratory findings: Complete Blood Count: Recent Labs 09/05/21 0448 09/06/21 0523 09/07/21 0553 WBC 8.0 9.7 9.7 HGB 12.0* 12.8* 13.3 HCT 38.1* 40.1* 40.8 PLT 305 357 428 Last 3 Blood Glucose: Recent Labs 09/05/2144709/06/21 0509/07/21 0553 GLUCOSE 123* 121* 121* PT/INR: No results found for: PROTIME, INR PTT: No results found for: APTT, PTT Comprehensive Metabolic Profile: Recent Labs 09/05/2144709/06/2152209/07/21 0553 NA 145* 147* 150* K 4.0 [...] PROPHYLAXIS: Stress ulcer: [] PPI Agent [x] G3Tvltb [] Sucralfate [] Other: VTE: [] Enoxaparin [...] Sadie Quintanilla DO Department of Critical Care [facility] [place] 09/07/2021, 7:06 AM Associated attestation - Srinivasan [...] Mccartney MD Pulmonary and Critical Care Medicine * Ashish Henao MD - 09/06/2021 12:47 PM EDT Images from the original note [...] the sputum and at this point in timeI will narrow the antimicrobial therapy to Rocephin to complete 2 to 4 weeks of antibiotic coverage Infection Control Recommendations: [place] precautions Discharge Planning: Estimated Length of IV [...] complaining of shortness of breath and work-up inthe seem to suggest CHF and a CT [...] and an echocardiogram showed moderate pericardial effusion andtechnically challenging evaluation there was no evidence of tamponade noted. 35 to 40 cc of fluid drained at pericardiocentesis in the emergency department. The patient is being treated for pulmonary edema and during the hospital stay he has been noted to have had fevers with a T-max of 101.3 degrees and was started on empiric antimicrobial therapy and Iwas asked to evaluate and help with antibiotic choice. The patient did have a new finding of bilateral Babinski's by the neurology service on 09/04/2021 hadMRI of the brain done that showed multi [...] C) Min: 98.5 F (36.9 C) Max: 100.3F (37.9 C) The patient is seen and [...] were no complications encountered. Cardiovascular Diseases Fellow [facility] ONE XRAY VIEW OF THE CHEST 09/02/2021 [...] effusion and cardiomegaly. Cultures: Culture, Blood 1 [[id number]] Collected: 08/31/21 1515 Order Status: Completed Specimen: Blood Updated: 09/05/21 1553 Specimen Description .BLOOD Culture NO GROWTH 5 DAYS Culture, Blood 1 [[id number]] Collected: 08/31/21 1519 Order Status: Completed Specimen: Blood Updated: 09/05/21 1531 Specimen Description .BLOOD Culture NO GROWTH 5 DAYS Culture, Body Fluid [[id number]] (Abnormal) Collected: 08/29/21 0342 Order Status: Completed Specimen: Body Fluid Updated: 09/04/21 1436 Specimen Description .FLUID .PERICARDIAL FLUID Direct Exam RARE NEUTROPHILS Abnormal NO BACTERIA SEEN Gram stain made from cytocentrifuged specimen. Organisms and cells will be concentrated. Culture NO GROWTH 6 DAYS Culture, Blood 1 [[id number]] Collected: 08/30/21 0953 Order Status: Completed Specimen: Blood Updated: 09/04/21 1024 Specimen Description .BLOOD Special Requests 10ML R ARM Culture NO GROWTH 5 DAYS Culture, Blood 1 [[id number]] (Abnormal) Collected: 08/30/21 1001 Order Status: Completed [...] Chain Reaction (PCR) results called to and readback by: BAUTISTA Greenfield at 0425 on 08/31/21 Culture, Respiratory [[id number]] (Abnormal) Collected: 08/30/21 2341 Order Status: Completed [...] Resulted: 09/02/21 08:28 MRSA DNA Probe, Nasal [[id number]] (Abnormal) Collected: 08/29/21 0813 Order Status: Completed [...] (Restricted: peds pts or suitable admitted adults) [[id number]] (Abnormal) Collected: 08/30/21 1115 Order Status: Completed [...] day [facility] Ashish Henao MD [employer] messaging OFFICE: Thank you for allowing us [...] meaning can be extrapolated by contextual diversion. * Eric Arias RCP - 09/06/2021 11:00 AM EDT Order obtained for extubation. SpO2 of 99 on 40% FiO2. Patient extubated and placed on 4 liters/min via nasal cannula. Post extubation SpO2 is 100% with HR 94 bpm and RR 20 breaths/min. Patient had strong cough that was productive of blood streaked sputum. Extubation Well tolerated bypatient.. Breath Sounds: clear ERIC ARIAS RCP 11:08 AM * Sharda Solitario MD - 09/06/2021 9:53 AM EDT Renal Progress Note Subjective: Patient was seen [...] per day Continuous Infusions: dexmedetomidine 1.5 mcg/kg/hr (09/06/21 0950) fentaNYL 50 mcg/mL 75 mcg/hr (09/06/21745) sodium chloride 10 mL/hr at 09/06/2146 PRN Meds: bisacodyl, fentanNYL, fentanNYL, sodium chloride [...] 0548 09/04/21 0548 09/04/21 1622 09/05/218 09/06/21 05 NA 142 < > 143 145* 147* [...] drugs/contrast exposure. Grace Melton CNP [facility] 09/06/2021 Attending Physician Statement I have discussed the care of Elias Walker, including pertinent history and exam findings, with the DB2 DEVELOPER. I have reviewed the salguero elements of all parts of the encounter with the DB2 DEVELOPER. I agree with the assessment, plan and orders as documented. Sharda Solitario MD MD, MRCP ([place]), FACP 09/06/2021 1:46 PM [facility] * Artur Quiñones MD - 09/06/2021 9:26 AM EDT [facility] Neurology IN-PATIENT SERVICE NEUROLOGY PROGRESS NOTE Date: [...] with a left hand and that he hasmoved both legs on command at times. His performance seems to be variable. Patient may be a candidate for extubation later today according to nursing staff. History of Present Illness: The patient is a 36 y.o. male who presents with Shortness of Breath ([facility], cardiac tamponade) and Chest Pain . The [...] 4 (1.626 m) Wt 225 lb 12 oz(102.4 kg) SpO2 100% BMI 38.75 kg/m Temp [...] have cleared. Artur Quiñones MD [facility] * Shun Cervantes MD - 09/06/2021 7:14 AM EDT Critical Care Team - Daily Progress Note Date and time: 09/06/2021 7:14 AM Patient's name: Elias Walker Patient's account/billing number: [id number] Patient's Date of : 1985 Age: 36 [...] 4 (1.626 m) Wt 225 lb 12 oz(102.4 kg) SpO2 99% BMI 38.75 kg/m Tmax [...] % Intake/Output Summary (Last 24 hours) at 09/06/2021 0714 Last data filed at 09/06/2021 0620 Gross [...] Humidification Source: HME Cuff Pressure (cm H2O): (supervisor microfilm duplicating unit) Skin Barrier Applied: No Laboratory findings: Complete Blood Count: Recent Labs 09/04/2148 09/05/2144709/06/21522 WBC 9.2 8.0 9.7 HGB 12.1* 12.0* 12.8* HCT 36.9* 38.1* 40.1* PLT 403 305 357 Last 3 Blood Glucose: Recent Labs 09/04/2148 09/05/21447 09/06/21 0523 GLUCOSE 138* 123* 121* PT/INR: [...] PROPHYLAXIS: Stress ulcer: [] PPI Agent [] [id number] [] Sucralfate [] Other: VTE: [] Enoxaparin [...] Braden Francois MD Department of Critical Care [facility] [place] 09/06/2021, 7:14 AM Attending Physician Statement I have discussed the care of Elias Walker, including pertinent history and exam findings with the resident. I have reviewed the salguero elements of all parts of the encounter with the resident. I haveseen and examined the patient with the resident. I agree with the assessment and plan and status ofthe problem list as documented. I seen the [...] Remained on ventilator PRVC/20/440/5/40 percent ABG 7.3 /48/97/29. Patient has been more awake since yesterday fentanyl drip was weaned down from 150 mcg to 50 mcg this morning and he is on Precedex drip although on a lower dose he is also on oxycodone 10 mg every 6hours. Is currently on ceftaroline currently afebrile T-max [...] at least 40 min so far today, excludingprocedures. Please note that this chart was generated using voice recognition youmagon dictation software. Although every effort was made to ensure the accuracy of this automated physician relations representative, some errors in physician relations representative may have occurred. Shun Crevantes MD 09/06/2021 10:53 AM * Lynda Jimenez [facility] - 09/05/2021 2:06 PM EDT Pharmacy Note Renal Dose Adjustment Elias Walker [...] to 20 mg BID Lynda Jimenez PharmD[facility] 09/05/2021 2:05 PM * Artur Quiñones MD - 09/05/2021 10:15 AM EDT [facility] Neurology IN-PATIENT SERVICE NEUROLOGY PROGRESS NOTE Date: [...] area of prior deep white matter remote hemorrhagealso noted. At this point patient is receiving [...] male who presents with Shortness of Breath ([facility], cardiac tamponade) and Chest Pain . The patient was seen and examined and the chart was reviewed. This patient had a recent history of hypertension which appear to be uncontrolled. He also developed shortness of breath and chest pain. He had been evaluated at outside hospital and sent home with management for his hypertension but presented to [facility] for management of shortness of breath and chest pain. Patient was noted to have respiratory distress and developed delirium. He received oral intubation.He was found to have group C streptococcal [...] will continue to follow Artur Quiñones MD [facility] * Uriel Grier MD - 09/05/2021 9:55 AM EDT Renal Progress Note Patient : Elias Walker; 36 y.o. Location: [address] [place] [address] Attending: Brian Gracia MD Admit Date: 08/29/2021 Hospital Day: 7 Subjective: Patient was seen and examined at bedside. He is currently intubated and sedated. FiO2 40% with a PEEP of 5 His neuro status is waxing and waning per nursing, at times he will follow commands and other timesis having spontaneous movements. Creatinine slightly improved to1.80 [...] per day Continuous Infusions: dexmedetomidine 1.3 mcg/kg/hr (09/05/21951) fentaNYL 50 mcg/mL 150 mcg/hr (09/05/21953) sodium chloride 10 mL/hr at 09/05/21 0835 [...] exposure. Uriel Grier MD [facility] [place] 09/05/2021 * Shun Cervantes MD - 09/05/2021 7:12 AM EDT Critical Care Team - Daily Progress Note Date and time: 09/05/2021 7:13 AM Patient's name: Elias Walker Patient's account/billing number: [id number] Patient's Date of : 1985 Age: 36 [...] Humidification Source: HME Cuff Pressure (cm H2O): (supervisor microfilm duplicating unit) Laboratory findings: Complete Blood Count: Recent Labs [...] PROPHYLAXIS: Stress ulcer: [] PPI Agent [] P5Potwn [] Sucralfate [] Other: VTE: [] Enoxaparin [...] PGY2 Family Medicine Department of Critical Care [facility] [place] 09/05/2021, 7:13 AM Attending Physician Statement I have discussed the care of Elias Walker, including pertinent history and exam findings with the resident. I have reviewed the salguero elements of all parts of the encounter with the resident. I haveseen and examined the patient with the resident. I agree with the assessment and plan and status ofthe problem list as documented. I seen the [...] patient needs anticoagulation they think that it ismore septic emboli than cardioembolic. Patient had already [...] at least 35 min so far today, excludingprocedures. Please note that this chart was generated using voice recognition youmagon dictation software. Although every effort was made to ensure the accuracy of this automated physician relations representative, some errors in physician relations representative may have occurred. Shun Cervantes MD 09/05/2021 12:19 PM * Ashish Henao MD - 09/04/2021 3:15 PM EDT Images from the original note [...] negative at 3 days Infection Control Recommendations: [place] precautions Discharge Planning: Estimated Length of IV [...] complaining of shortness of breath and work-up inthe seem to suggest CHF and a CT [...] and an echocardiogram showed moderate pericardial effusion andtechnically challenging evaluation there was no evidence of tamponade noted. 35 to 40 cc of fluid drained at pericardiocentesis in the emergency department. The patient is being treated for pulmonary edema and during the hospital stay he has been noted to have had fevers with a T-max of 101.3 degrees and was started on empiric antimicrobial therapy and Iwas asked to evaluate and help with antibiotic [...] were no complications encountered. Cardiovascular Diseases Fellow [facility] ONE XRAY VIEW OF THE CHEST 09/02/2021 [...] effusion and cardiomegaly. Cultures: Culture, Body Fluid [[id number]] (Abnormal) Collected: 08/29/21 0342 Order Status: Completed Specimen: Body Fluid Updated: 09/04/21 1436 Specimen Description .FLUID .PERICARDIAL FLUID Direct Exam RARE NEUTROPHILS Abnormal NO BACTERIA SEEN Gram stain made from cytocentrifuged specimen. Organisms and cells will be concentrated. Culture NO GROWTH 6 DAYS Culture, Blood 1 [[id number]] Collected: 08/30/21 0953 Order Status: Completed Specimen: Blood Updated: 09/04/21 1024 Specimen Description .BLOOD Special Requests 10ML R ARM Culture NO GROWTH 5 DAYS Culture, Blood 1 [[id number]] Collected: 08/31/21 1515 Order Status: Completed Specimen: Blood Updated: 09/03/21 0613 Specimen Description .BLOOD Culture NO GROWTH 3 DAYS Culture, Blood 1 [[id number]] Collected: 08/31/21 1519 Order Status: Completed Specimen: Blood Updated: 09/03/21 0613 Specimen Description .BLOOD Culture NO GROWTH 3 DAYS Culture, Blood 1 [[id number]] (Abnormal) Collected: 08/30/21 1001 Order Status: Completed [...] Chain Reaction (PCR) results called to and readback by: BAUTISTA Greenfield at 0425 on 08/31/21 Culture, Respiratory [[id number]] (Abnormal) Collected: 08/30/211 Order Status: Completed Specimen: Endotracheal Updated: 09/02/21 [...] Resulted: 09/02/21 08:28 MRSA DNA Probe, Nasal [[id number]] (Abnormal) Collected: 08/29/21 0813 Order Status: Completed [...] (Restricted: peds pts or suitable admitted adults) [[id number]] (Abnormal) Collected: 08/30/21 1115 Order Status: Completed [...] day [facility] Ashish Henao MD [employer] messaging OFFICE: Thank you for allowing us [...] meaning can be extrapolated by contextual diversion. * Marina Poe PT - 09/04/2021 1:20 PM EDT Images from the original note were not included. Physical Therapy Physical Therapy Cancel Note DATE: 09/04/2021 NAME: Elias Walker : 1985 Patient not seen this date for Physical Therapy due to: Per nurse, patient is not following commands. Intubated. * Uriel Grier MD - 09/04/2021 11:25 AM EDT Renal Progress Note Patient : Elias Walker; 36 y.o. Location: [address] [place] [address] Attending: Brian Gracia MD Admit Date: 08/29/2021 [...] mcg/kg/hr (09/04/21925) fentaNYL 50 mcg/mL 175 mcg/hr (09/04/21746) sodium chloride 10 mL/hr at 09/04/21 08 PRN Meds: fentanNYL, fentanNYL, sodium chloride flush, [...] pertinent history and exam findings with the DB2 DEVELOPER. I have reviewed the salguero elements of all parts of the encounter with the DB2 DEVELOPER. I have seen and examined the patient. I agree with the assessment and plan and status of the problem list as documented. Uriel Grier MD Nephrology Attending Physician [facility] [place] [facility] 09/04/2021 * Artur Quiñones MD - 09/04/2021 10:23 AM EDT [facility] Neurology IN-PATIENT SERVICE NEUROLOGY PROGRESS NOTE Date: [...] male who presents with Shortness of Breath ([facility], cardiac tamponade) and Chest Pain . The [...] infection as noted by infectious disease. Patient hasnot had COVID. Patient has been seeking medical attention for management of significant hypertension. During course of management he had had number of hospitalizations from hypertension. Eventually developed shortness of breath and chest pain which was multifactorial. He was transferred from [facility] due to concern for pericardial effusion versus [...] agitated combative delirium and required significant sedation [id number] - 200 of fentanyl and propofol neurology [...] will follow Artur Quiñones MD 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 I have reviewed the salguero elements of all parts of the encounter with the resident. I haveseen and examined the patient with the resident. I agree with the assessment and plan and status ofthe problem list as documented. Overnight he does [...] disease. Ventilator setting PRVC/20/440/5/40 percent ABG 7.3 /70/27. Chest x-ray shows improving pulmonary edema much [...] at least 40 min so far today, excludingprocedures. Please note that this chart was generated using voice recognition youmagon dictation software. Although every effort was made to ensure the accuracy of this automated physician relations representative, some errors in physician relations representative may have occurred. Shun Cervantes MD 09/04/2021 9:46 AM * Ashish Henao MD - 09/03/2021 1:35 PM EDT Images from the original note [...] due to concerns for OZZIE worsening per thenephrology service. The patient did again have a fever overnight and etiology is not entirely clear. Continue supportive therapy Infection Control Recommendations: [place] precautions Discharge Planning: Estimated Length of IV [...] complaining of shortness of breath and work-up inthe seem to suggest CHF and a CT [...] and an echocardiogram showed moderate pericardial effusion andtechnically challenging evaluation there was no evidence of tamponade noted. 35 to 40 cc of fluid drained at pericardiocentesis in the emergency department. The patient is being treated for pulmonary edema and during the hospital stay he has been noted to have had fevers with a T-max of 101.3 degrees and was started on empiric antimicrobial therapy and Iwas asked to evaluate and help with antibiotic [...] were no complications encountered. Cardiovascular Diseases Fellow [facility] ONE XRAY VIEW OF THE CHEST 09/02/2021 [...] effusion and cardiomegaly. Cultures: Culture, Body Fluid [[id number]] (Abnormal) Collected: 08/29/21 0342 Order Status: Completed Specimen: Body Fluid Updated: 09/03/21 0731 Specimen Description .FLUID .PERICARDIAL FLUID Direct Exam RARE NEUTROPHILS Abnormal NO BACTERIA SEEN Gram stain made from cytocentrifuged specimen. Organisms and cells will be concentrated. Culture NO GROWTH 5 DAYS Culture, Blood 1 [[id number]] Collected: 08/31/21 1515 Order Status: Completed Specimen: Blood Updated: 09/03/21612 Specimen Description .BLOOD Culture NO GROWTH 3 DAYS Culture, Blood 1 [[id number]] Collected: 08/31/21 1519 Order Status: Completed Specimen: Blood Updated: 09/03/21612 Specimen Description .BLOOD Culture NO GROWTH 3 DAYS Culture, Blood 1 [[id number]] Collected: 08/30/21 0953 Order Status: Completed Specimen: Blood Updated: 09/03/21612 Specimen Description .BLOOD Special Requests 10ML R ARM Culture NO GROWTH 4 DAYS Culture, Blood 1 [[id number]] (Abnormal) Collected: 08/30/21 1001 Order Status: Completed [...] Chain Reaction (PCR) results called to and readback by: BAUTISTA Greenfield at 0425 on 08/31/21 Culture, Respiratory [[id number]] (Abnormal) Collected: 08/30/21 2341 Order Status: Completed [...] Last Resulted: 09/02/21 08:28 Culture, Blood 1 [[id number]] (Abnormal) Collected: 08/30/21 1001 Order Status: Completed [...] Chain Reaction (PCR) results called to and readback by: BAUTISTA Greenfield at 0425 on 08/31/21 MRSA DNA Probe, Nasal [[id number]] (Abnormal) Collected: 08/29/21 0813 Order Status: Completed [...] (Restricted: peds pts or suitable admitted adults) [[id number]] (Abnormal) Collected: 08/30/21 1115 Order Status: Completed [...] (Restricted: peds pts or suitable admitted adults) [[id number]] Collected: 08/30/21 0930 Order Status: Canceled Specimen: [...] day [facility] Ashish Henao MD [employer] messaging OFFICE: Thank you for allowing us [...] meaning can be extrapolated by contextual diversion. * Jocelyn Ferro, [facility] - 09/03/2021 1:14 PM EDT Pharmacy Note Renal Dose Adjustment Elias Walker is a 36 y.o. male. Pharmacist assessment of renally cleared medications. Recent Labs 09/02/21 0841 09/03/21 06 BUN 31* 36* Recent Labs 09/02/21 0841 09/03/21 0642 CREATININE 1.86* 1.99* Estimated Creatinine Clearance: 59 mL/min (A) (based on SCr of 1.99 mg/dL (H)). Estimated CrCl using [place] Body Weight: 42 mL/min (based on IBW 59.2 kg) Height: Ht Readings from Last 1 Encounters: 08/31/21 5' 4 (1.626 m) Weight: Wt Readings from Last 1 Encounters: 09/03/21 254 lb 13.6 oz (115.6 kg) The following medication dose has been adjusted based upon renal function per P&T Guidelines: Famotidine BID to daily Jocelyn Ferro PharmD [facility] 09/03/2021 1:13 PM * Falguni Sherman PT - 09/03/2021 11:59 AM EDT Images from the original note were not included. Physical Therapy Physical Therapy Cancel Note DATE: 09/03/2021 NAME: Elias Walker : 1985 Patient not seen this date for Physical Therapy due to: Patient is not appropriate for PT evaluation/treatment at this time d/t int/sed, no commands. 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 [...] at 25 mL/hr + 2 proteinex protein modulars/gus=049eckp and 105 g pro/day Additional Calorie Sources: Propofol at 23.5 mL/hr (with possible increase per RN) =620 kcal/day Anthropometric Measures: Height: 5' 4 (162.6 cm) [place] Body Weight (IBW): 130 lbs (59 kg) [...] Used for Energy Requirements: Admission Energy (kcal/day): 9695-4873 kcal/day Weight Used for Protein Requirements: [place] Protein (g/day): 120 g/day Method Used for Fluid Requirements: Other (Comment) Fluid (ml/day): Per MD Nutrition Diagnosis: Inadequate oral intake related to impaired respiratory function as evidenced by NPO or clear liquidstatus due to medical condition,nutrition support - enteral [...] to determine JENNIFER WOLF RD, ANKIT Contact: * Uriel Grier MD - 09/03/2021 9:47 AM EDT Renal Progress Note Patient : Elias Walker; 36 y.o. Location: Attending: Brian Gracia MD Admit Date: 08/29/2021 Hospital Day: 5 History of Present Illness: Elias Walker; 36 y.o. male with past medical history as mentioned below presented to the hospital with the chief complaint of chest pain and shortness of breath which has been going on for about aweek or so. He has known history of [...] About a week ago he presented to [facility] with complaints of chest pain and [...] placed on nitroglycerin drip and transferred to [facility]. Echocardiogram in the ER showed evidence of pericardial effusion, pericardiocentesis was attempted on 35 mL was drained. Subsequently he was intubated and placed on the ventilator. He has not been hypotensive. Blood cultures are now growing group C streptococcus. Sputum culture is growing staph RES. Chest x-ray showingevidence of infiltrate and also showing signs of [...] Friends and Family: Not on file Attends [employer] Services: Not on file Active Member of [...] 0600 259 lb 14.8 oz (117.9 kg) 09/01/21 [...] MD Nephrology Attending Physician [facility] 09/03/2021 * Shun Cervantes MD - 09/03/2021 7:16 AM EDT INTENSIVE CARE UNIT Resident Physician Progress Note [...] 5' 4 (1.626 m) Wt 254 lb 13.6oz (115.6 kg) SpO2 98% BMI 43.75 kg/m [...] Date 09/03/21 0000 - 09/03/21 2359 Shift [id number] 5769-2229 7260-7112 24 Hour Total INTAKE I.V.(mL/kg) 866.5(7.5) 866.5(7.5) [...] Continuous Infusions: fentaNYL 50 mcg/mL 150 mcg/hr (09/03/21 0600) propofol 40 mcg/kg/min (09/03/21 0625) sodium chloride 50 mL/hr at 08/31/21 0804 [...] Humidification Source: HME Cuff Pressure (cm H2O): (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 I haveseen and examined the patient with the resident. I agree with the assessment and plan and status ofthe problem list as documented. I seen the [...] I saw him he was restless on hissedation moves nicely did not follow commands does not respond to name and no tracking of eyes. Ventilator setting PRVC/20/440/5/30 percent ABG was 7.3 2/46/71/24. Will keep and try to wean fentanyl [...] at least 40 min so far today, excludingprocedures. Please note that this chart was generated using voice recognition youmagon dictation software. Although every effort was made to ensure the accuracy of this automated physician relations representative, some errors in physician relations representative may have occurred. Shun Cervantes MD 09/03/2021 1:12 PM * Lorna Moyer MD - 09/03/2021 6:48 AM EDT Images from the original note were not included. [address] Safety Engineer Progress Note Date: 09/03/2021 Patient name: Elias [...] pericardial effusion. Ejection fraction was normal on CESAR.Patient is receiving ceftaroline for heavy growth of [...] mL/hr at 08/31/21 0804 CBC: Recent Labs 08/31/21 0457 09/01/21 0512 09/02/21 0841 WBC 11.9* 9.4 11.0 HGB 11.0* 10.9* 11.5* PLT 195 212 228 BMP: Recent Labs 08/31/21 0457 09/01/21 0512 09/02/21 0841 NA 140 140 139 [...] but ejection fraction is normal on CESAR whennormotensive. 6. HTN Emergency - resolved 7. Acute [...] with any questions SARMAD WESLEY MD RESIDENT, [facility] Cardiology 09/03/2021,1:51 AM Attending Physician Statement I have discussed the case of Elias Walker including pertinent history and exam findings with theresident. I have seen and examined the patient and the salguero elements of the encounter have been performed by me. I agree with the assessment, plan and orders as documented by the resident With changesmade to the note. . [place] [place] [address] Safety Engineer [phone] * Ashish Henao MD - 09/02/2021 12:47 PM EDT Images from the original note [...] due to concerns for OZZIE worsening per thenephrology service. The patient did again have a fever overnight and etiology is not entirely clear. Continue supportive therapy Infection Control Recommendations: [place] precautions Discharge Planning: Estimated Length of IV [...] complaining of shortness of breath and work-up inthe seem to suggest CHF and a CT [...] and an echocardiogram showed moderate pericardial effusion andtechnically challenging evaluation there was no evidence of tamponade noted. 35 to 40 cc of fluid drained at pericardiocentesis in the emergency department. The patient is being treated for pulmonary edema and during the hospital stay he has been noted to have had fevers with a T-max of 101.3 degrees and was started on empiric antimicrobial therapy and Iwas asked to evaluate and help with antibiotic [...] effusion and cardiomegaly. Cultures: Culture, Blood 1 [[id number]] (Abnormal) Collected: 08/30/21 1001 Order Status: Completed [...] Chain Reaction (PCR) results called to and readback by: BAUTISTA Greenfield at 0425 on 08/31/21 Culture, Blood 1 [[id number]] Collected: 08/30/21 0953 Order Status: Completed Specimen: Blood Updated: 09/02/21 1023 Specimen Description .BLOOD Special Requests 10ML R ARM Culture NO GROWTH 3 DAYS Culture, Respiratory [[id number]] (Abnormal) Collected: 08/30/21 2341 Order Status: Completed [...] Last Resulted: 09/02/21 08:28 Culture, Blood 1 [[id number]] Collected: 08/31/21 1515 Order Status: Completed Specimen: Blood Updated: 09/01/21 1554 Specimen Description .BLOOD Culture NO GROWTH 1 DAY Culture, Blood 1 [[id number]] Collected: 08/31/21 1519 Order Status: Completed Specimen: Blood Updated: 09/01/21 1528 Specimen Description .BLOOD Culture NO GROWTH 1 DAY Culture, Blood 1 [[id number]] (Abnormal) Collected: 08/30/21 1001 Order Status: Completed [...] Chain Reaction (PCR) results called to and readback by: BAUTISTA Greenfield at 0425 on 08/31/21 MRSA DNA Probe, Nasal [[id number]] (Abnormal) Collected: 08/29/21 0813 Order Status: Completed [...] (Restricted: peds pts or suitable admitted adults) [[id number]] (Abnormal) Collected: 08/30/21 1115 Order Status: Completed [...] (Restricted: peds pts or suitable admitted adults) [[id number]] Collected: 08/30/21929 Order Status: Canceled Specimen: Nasopharyngeal Swab Medications: heparin (porcine) 5,000 Units SubCUTAneous 3 times per day furosemide 40 mg IntraVENous BID ceftaroline fosamil (TEFLARO) IVPB 400 mg IntraVENous Q12H famotidine 20 mg Per G Tube BID [Held by provider] carvedilol 6.25 mg Oral BID sodium chloride flush 5-40 mL IntraVENous 2 times per day [facility] Ashish Henao MD [address] OFFICE: Thank you for allowing us to [...] meaning can be extrapolated by contextual diversion. * Lorna Moyer MD - 09/02/2021 12:03 PM EDT Images from the original note were not included. [address] Safety Engineer Progress Note Date: 09/02/2021 Patient name: Elias [...] [id number] BMP: Recent Labs 08/31/21 0457 09/01/21 0512 09/02/21 0841 NA 140 140 139 [...] with inspiratory collapse-which goes against echocardiographic tamponade. Rosa RICARDO [facility] Work Phone: evaluation noteNo assessment information available [facility] Work Phone: Evaluation note* Diagnosis Cerebral septic emboli (HCC)- Primary Cerebral [...] accident (CVA) (HCC) documented in this encounter [employer] Phone: evaluation note* Diagnosis Sepsis due to Streptococcus species without acute organ dysfunction (HCC)- Primary documented in this encounter [employer] Phone: evaluation note* Diagnosis Sepsis due to Streptococcus species without acute organ dysfunction (HCC)- Primary documented in this encounter [employer] Phone: evaluation note* Diagnosis Sepsis due to Streptococcus species without acute organ dysfunction (HCC)- Primary documented in this encounter [employer] Phone: evaluation note* Diagnosis Sepsis due to Streptococcus species without acute organ dysfunction (HCC)- Primary documented in this encounter [employer] Phone: evaluation note* Diagnosis Acute kidney injury (HCC) Acute kidney failure, unspecified documented in this encounter [employer] Phone: evaluation note* Diagnosis Sepsis due to Streptococcus species without acute organ dysfunction (HCC)- Primary documented in this encounter [employer] Phone: evaluation note* Diagnosis Sepsis due to Streptococcus species without acute organ dysfunction (HCC)- Primary documented in this encounter [employer] Phone: evaluation note* Diagnosis Sepsis due to Streptococcus species without acute organ dysfunction (HCC)- Primary documented in this encounter [employer] Phone: evaluation note* Diagnosis Sepsis due to Streptococcus species without acute organ dysfunction (HCC)- Primary documented in this encounter [employer] Phone: evaluation note* Diagnosis Sepsis due to Streptococcus species without acute organ dysfunction (HCC)- Primary documented in this encounter [employer] Phone: evaluation note* Diagnosis Sepsis due to Streptococcus species without acute organ dysfunction (HCC)- Primary documented in this encounter [employer] Phone: [email or web address] note* Diagnosis Sepsis due to Streptococcus species without acute organ dysfunction (HCC)- Primary documented in this encounter [employer] Phone: evaluation note* Diagnosis Acute kidney injury (HCC) Acute kidney failure, unspecified Hypercalcemia Dilated cardiomyopathy (HCC) Other primary cardiomyopathies Primary hypertension Unspecified essential hypertension documented in this encounter [employer] Phone: [email or web address] note* Diagnosis Sepsis due to Streptococcus species without acute organ dysfunction (HCC)- Primary documented in this encounter [employer] Phone: evaluation note* Diagnosis Hypercalcemia documented in this encounter [employer] Phone: evaluation note* Diagnosis Multiple vessel coronary artery disease- Primary Coronary atherosclerosis of unspecified type of vessel, [place] or graft S/P CABG (coronary artery bypass graft) Postsurgical aortocoronary bypass status NSTEMI (non-ST elevated myocardial infarction) ([facility]) Acute myocardial infarction, subendocardial infarction, episode of care unspecified Hypertensive crisis Unspecified essential hypertension Acute kidney injury superimposed on CKD (HCC) Morbid obesity ([facility]) Morbid obesity Anxiety Anxiety state, unspecified Essential hypertension Unspecified essential hypertension Allergic rhinitis Allergic rhinitis, cause unspecified HHNC (hyperglycemic hyperosmolar nonketotic coma) ([facility]) Type II or unspecified type diabetes mellitus with hyperosmolarity, not stated as uncontrolled History of primary hyperparathyroidism IAN (obstructive sleep apnea) Obstructive sleep apnea (adult) (pediatric) History of type 2 diabetes mellitus Personal history of other endocrine, metabolic, and immunity disorders documented in this encounter [employer] Phone: [email or web address] note* Diagnosis Acute kidney injury (HCC) Acute kidney failure, unspecified Hypercalcemia Dilated cardiomyopathy (HCC) Other primary cardiomyopathies Primary hypertension Unspecified essential hypertension documented in this encounter [employer] Phone: evaluation note* Diagnosis Acute kidney injury superimposed on CKD (HCC) Avitaminosis D Unspecified vitamin D deficiency Anemia of chronic renal failure, unspecified CKD stage Hypercalcemia Hyperparathyroidism (HCC) Hyperparathyroidism, unspecified Stage 3 chronic kidney disease, unspecified whether stage 3a or 3b CKD (HCC) Acute kidney injury (HCC) Acute kidney failure, unspecified Dilated cardiomyopathy (HCC) Other primary cardiomyopathies Primary hypertension Unspecified essential hypertension documented in this encounter [facility] [employer] Phone: evaluation note* Diagnosis Mixed hyperlipidemia documented in this encounter [facility]* Diagnosis Type 2 diabetes mellitus with microalbuminuria, without long-term current use of insulin ([facility]) documented in this encounter [facility]* Diagnosis Uncontrolled type 2 diabetes mellitus with hyperglycemia ([facility])- Primary Type 2 diabetes mellitus with microalbuminuria, without long-term current use of insulin ([facility]) Type 2 diabetes mellitus with stage 3 chronic kidney disease and hypertension ([facility]) documented in this encounter [facility]* Diagnosis Uncontrolled type 2 diabetes mellitus with hyperglycemia ([facility]) Type 2 diabetes mellitus with stage 3 chronic kidney disease and hypertension ([facility]) Type 2 diabetes mellitus with microalbuminuria, without long-term current use of insulin ([facility]) documented in this encounter [facility]* Diagnosis Type 2 diabetes mellitus with microalbuminuria, without long-term current use of insulin ([facility])- Primary documented in this encounter [facility]* Diagnosis Seasonal allergic rhinitis due to pollen documented in this encounter [facility]* Diagnosis Type 2 diabetes mellitus with microalbuminuria, without long-term current use of insulin ([facility])- Primary Mixed anxiety and depressive disorder Dysthymic disorder Mixed hyperlipidemia Stage 3b chronic kidney disease ([facility]) documented in this encounter [facility]* Diagnosis Type 2 diabetes mellitus with microalbuminuria, without long-term current use of insulin ([facility])- Primary Primary hypertension Unspecified essential hypertension Current moderate episode of major depressive disorder without prior episode ([facility]) Mixed hyperlipidemia documented in this encounter [facility]* Diagnosis Type 2 diabetes mellitus with microalbuminuria, without long-term current use of insulin ([facility])- Primary documented in this encounter [facility]* Diagnosis Lesion of tongue- Primary documented in this encounter [facility] note* Diagnosis Lesion of tongue- Primary documented in this encounter [facility]* Diagnosis Type 2 diabetes mellitus with microalbuminuria, without long-term current use of insulin ([facility])- Primary Type 2 diabetes mellitus with stage 3 chronic kidney disease and hypertension ([facility]) Anxiety and depression Snoring Other dyspnea and respiratory abnormality Mixed hyperlipidemia documented in this encounter [facility] note* Diagnosis Type 2 diabetes mellitus with microalbuminuria, without long-term current use of insulin ([facility])- Primary Fasting hyperglycemia documented in this encounter [facility] note* Diagnosis Uncontrolled type 2 diabetes mellitus with hyperglycemia ([facility])- Primary Moderate episode of recurrent major depressive disorder ([facility]) documented in this encounter [facility] note* Diagnosis Folliculitis- Primary Other specified disease of hair and hair follicles documented in this encounter [facility] note* Diagnosis Type 2 diabetes mellitus with microalbuminuria, without long-term current use of insulin ([facility]) documented in this encounter [facility] note* Diagnosis Type 2 diabetes mellitus with microalbuminuria, without long-term current use of insulin ([facility])- Primary documented in this encounter [facility] note* Diagnosis Moderate episode of recurrent major depressive disorder ([facility]) Type 2 diabetes mellitus with stage 3 chronic kidney disease and hypertension ([facility]) documented in this encounter [facility] note* Diagnosis Type 2 diabetes mellitus with microalbuminuria, without long-term current use of insulin ([facility])- Primary Moderate episode of recurrent major depressive disorder ([facility]) Mixed hyperlipidemia Seasonal allergic rhinitis due to pollen Type 2 diabetes mellitus with stage 3 chronic kidney disease and hypertension ([facility]) Anxiety and depression Comprehensive diabetic foot examination, type 2 DM, encounter for ([facility]) [facility] Diagnosis Type 2 diabetes mellitus with microalbuminuria, without long-term current use of insulin ([facility]) documented in this encounter [facility]* Diagnosis Type 2 diabetes mellitus with microalbuminuria, without long-term current use of insulin ([facility])- Primary [facility] Diagnosis Type 2 diabetes mellitus with microalbuminuria, without long-term current use of insulin ([facility])- Primary documented in this encounter [facility]* Diagnosis Type 2 diabetes mellitus with other diabetic kidney complication ([facility]) Essential hypertension, malignant Stage 3 chronic kidney disease, unspecified whether stage 3a or 3b CKD ([facility]) Morbid obesity ([facility]) Morbid obesity documented in this encounter [facility]* Diagnosis Moderate episode of recurrent major depressive disorder ([facility]) documented in this encounter [facility]* Diagnosis Uncontrolled type 2 diabetes mellitus with hyperglycemia ([facility])- Primary Type 2 diabetes mellitus with microalbuminuria, without long-term current use of insulin ([facility]) Anxiety and depression Type 2 diabetes mellitus with stage 3 chronic kidney disease and hypertension ([facility]) documented in this encounter [facility]* Diagnosis Seasonal allergic rhinitis due to pollen documented in this encounter [facility]* Diagnosis Type 2 diabetes mellitus with microalbuminuria, without long-term current use of insulin ([facility])- Primary documented in this encounter [facility]* Diagnosis Loose stools- Primary Abnormal feces documented in this encounter [facility]* Diagnosis Loose stools- Primary Abnormal feces documented in this encounter [facility]* Diagnosis Mixed hyperlipidemia documented in this encounter [facility]* Diagnosis Mixed hyperlipidemia documented in this encounter [facility] note* Diagnosis Screen for STD (sexually transmitted disease)- Primary Screening examination for venereal disease Type 2 diabetes mellitus with stage 3 chronic kidney disease and hypertension ([facility]) Primary hypertension Unspecified essential hypertension Loose stools Abnormal feces Moderate episode of recurrent major depressive disorder ([facility]) Class 3 severe obesity due to excess calories with serious comorbidity and body mass index (BMI) of40.0 to 44.9 in adult ([facility]) documented in this encounter [facility]* Diagnosis Anxiety and depression documented in this encounter [facility] SystemInstructionsNot on filedocumented in this encounter [facility] SystemInstructions* Attachments The following attachments cannot be sent through Care Everywhere. * Diabetes and diet ([place]ian) [facility] SystemInstructions* Attachments The following attachments cannot be sent through Care Everywhere. * Diabetes and diet ([place]ian) documented in this encounterPro[facility] [place] whodoyou SystemInstructionsNot on file documented in this encounterPro[facility] [place] whodoyou SystemInstructionsNot on file documented in this encounterProEn[facility] [place] whodoyou SystemInstructionsNot on file documented in this encounterPro[facility] SystemInstructions* Attachments The following attachments cannot be sent through Care Everywhere. * Diabetes Exchange Diet ([place]ian) documented in this encounterProEn[facility] [place] whodoyou SystemInstructionsNot on file documented in this encounterProEn[facility] [place] whodoyou SystemInstructionsNot on file documented in this encounterProEn[facility] [place] whodoyou SystemInstructionsNot on file documented in this encounterProEn[facility] [place] wh[facility]ou SystemInstructions* Attachments The following attachments cannot be sent through Care Everywhere. * Anxiety Discharge Instructions, Adult ([place]ian) documented in this encounterProEn[facility] [place] whodoyou SystemInstructionsNot on file documented in this encounterPro[facility] [place] whodoyou SystemInstructionsNot on file [facility] SystemInstructions* Attachments The following attachments cannot be sent through Care Everywhere. * Carb counting for adults with diabetes ([place]ian) documented in this encounterPro[facility] [place] wh[facility]ou SystemInstructions* Attachments The following attachments cannot be sent through Care Everywhere. * Folliculitis ([place]ian) documented in this encounterProEn[facility] [place] whodoyou SystemInstructionsNot on file documented in this encounterProEn[facility] [place] whodoyou SystemInstructionsNot on file documented in this encounterProEn[facility] [place] wh[facility]oyou SystemInstructions* Attachments The following attachments cannot be sent through Care Everywhere. * Depression (E[place]ian) documented in this encounterPro[facility] [place] wh[facility]oyou SystemInstructionsNot on file documented in [facility] encounter[facility] wh[facility]ou SystemInstructions* Attachments The following attachments cannot be sent through Care Everywhere. * Carb counting for adults with diabetes ([place]ian) documented in this encounterProEn[facility] [place] whodoyou SystemInstructionsNot on file documented in this encounterProEn[facility] [place] whodoyou SystemInstructionsNot on file documented in this encounterSt. [facility] SystemReason for referral (narrative)* Consultation (Routine) - Pending ReviewSpecialtyDiagnoses / ProceduresReferred By ContactReferred To ContactOtolaryngology Diagnoses Lesion of tongue Eliana Merino, MANAGER MANA[employer] MECHANIC [address] [place] [address] Kate Matt MD [address] [address] Referral IDStatusReasonStart DateExpiration DateVisits RequestedVisits [id number] Review Specialty Services Required Electronically signed by Eliana Merino MANAGER MANAGED [employer] SERVICE MECHANIC at 03/29/2023 1:47 PM [facility] for referral (narrative)* Consultation (Routine) - Pending ReviewSpecialtyDiagnoses / ProceduresReferred By ContactReferred To [facility] Medicine Diagnoses Snoring Jose Khanna, MANAGER MANA[employer]ED [employer] DEVELOPER [address] [place] [address] Pari Painter MD [facility] [place] [address] Referral IDStatusReasonStbelleville DateExpiration DateVisits RequestedVisits [id number] Review Specialty Services Required Electronically signed by Jose Khanna MANAGER MANAGED [employer] at 04/19/2023 9:22 AM [facility] for visit Narrative* Treatment Plan and Therapy Plan (Routine) - AuthorizedSpecialtyDiagnoses / ProceduresReferred By Contact Referred To Contact Diagnoses Sepsis due to Streptococcus species without acute organ dysfunction (HCC) Procedures DC CEFTRIAXONE SODIUM INJECTION Jared Hernandez MD [address] [facility] [address] [place] [address] Med [address]urg [address] [place] [address] Referral IDStatusReasonStart DateExpiration DateVisits RequestedVisits [id number] [facility] Phone: reason for visit Narrative* Treatment Plan and Therapy Plan (Routine) - OpenSpecialtyDiagnoses / ProceduresReferred By Contact Referred To Contact Diagnoses Sepsis due to Streptococcus species without acute organ dysfunction (HCC) Jared Hernandez MD [address] [facility] [place] [address] [facility] [facility] [address] [place] [address] Referral IDStatusReasonStart DateExpiration DateVisits RequestedVisits [id number]/12/20227/ [employer] Phone: Chief Complaint and Reason for Visit Chief Complaint CP, SOB Advance Directives Advance Directive Response Recorded Date/ Time Advance Directives No August 28 7:04pm TypeDate RecordedPatient RepresentativeExplanationACP-Advance DirectiveACP-Power of AttorneyCode StatusDate ActivatedDate InactivatedCommentsFull Code08/29/2021 6:40 AMFull Code08/29/2021 6:40 AM08/29/2021 6:40 AMFull Code01/31/2016 5:14 AM 02/02/2016 10:23 AMCode StatusDate ActivatedDate InactivatedCommentsFull Code 08/29/2021 6:40 AM09/12/2021 5:11 PMCode StatusDate ActivatedDate Inactivated CommentsFull Code08/29/2021 6:40 AM09/12/2021 5:11 PMFull Code08/29/2021 6:40 AM 08/29/2021 6:40 AMFull Code01/31/2016 5:14 AM02/02/2016 10:23 AMCode StatusDate ActivatedDate InactivatedCommentsFull Code06/02/2022 6:25 PMCode StatusDate ActivatedDate InactivatedCommentsFull Code05/23/2022 12:21 PM06/02/2022 6:24 PM Full Code08/29/2021 6:40 AM09/12/2021 5:11 PMFull Code08/29/2021 6:40 AM08/29/2021 6:40 AMFull Code01/31/2016 5:14 AM02/02/2016 10:23 AMNameRelationshipHealthcare Agent RelationshipCommunicationNicolle PetersGirlfriendPrimary Decision Maker* TypeDate RecordedPatient RepresentativeExplanationACP-Advance Directive06/07/2022 12:16 PMCode StatusDate ActivatedDate InactivatedCommentsFull Code06/02/2022 6:25 PM06/06/2022 4:42 PMNameRelationshipHealthcare Agent RelationshipCommunication Nicolle GoodGirlfriendPrimary Decision Maker* NameRelationshipHealthcare Agent RelationshipCommunicationNicolle GoodGirlfriend Primary Decision Maker* NameRelationshipHealthcare Agent RelationshipCommunicationAshaajy GoodGirlfriend Primary Decision Maker* NameRelationshipHealthcare Agent RelationshipCommunicationNicolle GoodGirlfriend Primary Decision Maker* NameRelationshipHealthcare Agent RelationshipCommunicationNicolle GoodGirlfriend Primary Decision Maker* Code StatusDate ActivatedDate InactivatedCommentsFull Code07/25/2022 9:16 AM 07/26/2022 2:46 AMCode StatusDate ActivatedDate InactivatedCommentsFull Code 06/02/2022 6:25 PM06/06/2022 4:42 PMFull Code05/23/2022 12:21 PM06/02/2022 6:24 PM Full Code08/29/2021 6:40 AM09/12/2021 5:11 PMFull Code08/29/2021 6:40 AM08/29/2021 6:40 AMNameRelationshipHealthcare Agent RelationshipCommunicationAlbinley Good GirlfriendPrimary Decision Maker* Reason for Referral SpecialtyDiagnoses / ProceduresReferred By ContactReferred To Contact Endocrinology Diagnoses Hypercalcemia Hyperparathyroidism (HCC) Vitamin D deficiency Solange Mercer MD [address] [place] [address] Chioma Dawkins MD [address] [place] [address] Referral IDStatusReasonStart DateExpiration DateVisits RequestedVisits [id number] Specialty Services Required /[id number] / ProceduresReferred By ContactReferred To Contact Diagnoses Type 2 diabetes mellitus with microalbuminuria, without long-term current use of insulin ([facility]) Jose Khanna, MANAGER [employer] [address] [place] [address] Referral IDStatusReasonStart DateExpiration DateVisits RequestedVisits [id number] [id number] IDStatusReasonStart DateExpiration DateVisits RequestedVisits [id number] Review/ SpecialtyDiagnoses / ProceduresReferred By ContactReferred To Contact Diagnoses Moderate episode of recurrent major depressive disorder ([facility]) Jose Khanna, MANAGER [employer] [address] [place] [address] Referral IDStatusReasonStart DateExpiration DateVisits RequestedVisits [id number]/[id number]/[id number] IDStatusReasonStart Date Expiration DateVisits RequestedVisits [id number] Review11/27/[id number] IDStatusReasonStart DateExpiration DateVisits Requested Visits [id number] Summary Purpose Family History No Family History [...] NO FAMILY Primary Care Provider Active Basilio J Sam , PA-Delia ProviderActive Team Status: Active Member Role Status Dates PHYSICIAN NO FAMILY Primary Care Provider Active Team MemberRelationshipSpecialtyStart DateEnd Date Jose Khanna, [employer] - [employer] [address], [place] [address] PCP - Iwssbsj98/6/22Team MemberRelationshipSpecialtyStart DateEnd Date Jose Khanna, [employer] - [employer] [address], [place] [address] PCP - Ndxfsru66/6/22Team MemberRelationshipSpecialtyStart DateEnd Date Jose Khanna [employer] - [employer] [address], [place] [address] PCP - Kspuzyf59/6/22Team MemberRelationshipSpecialtyStart DateEnd Date Jose Khanna, MANA[employer] - [employer] [address], [place] [address] PCP - Pbhfwtc06/6/22Team MemberRelationshipSpecialtyStart DateEnd Date Jose Khanna MANA[employer] - [employer] [address], [place] [address] PCP - Lunktpj56/6/22Team MemberRelationshipSpecialtyStart DateEnd Date Jose Khanna, MANA[employer] - [employer] [address], [place] [address] PCP - Wbhwops09/6/22Team MemberRelationshipSpecialtyStart DateEnd Date Jose Khanna, MANAGER [employer] - [employer] [address], [place] [address] PCP - Kmgbbip53/6/22Team MemberRelationshipSpecialtyStart DateEnd Date Jose Khanna, MANAGER [employer]-[facility] [address] [place] [address] PCP - GeneralFamily Medicine10/21/21Team MemberRelationshipSpecialtyStart DateEnd Date Jose Khanna, MA[employer]-[facility] [address] [place] [address] PCP - Generalmily Medicine10/21/21Team MemberRelationshipSpecialtyStart DateEnd Date Jose Khanna, MA[employer]-[facility] [address] [place] [address] PCP - GeneralFamily Medicine10/21/21Team MemberRelationshipSpecialtyStart DateEnd Date Jose Khanna, MA[employer]-[facility] [address] [place] [address] PCP - Generalmily Medicine10/21/21Team MemberRelationshipSpecialtyStart DateEnd Date Jose Khanna, MA[employer]-[facility] [address] [place] [address] PCP - GeneralFamily Medicine10/21/21Team MemberRelationshipSpecialtyStart DateEnd Date Jose Khanna, [facility] [address] [place] [address] PCP - GeneralFamily Medicine10/21/21Team MemberRelationshipSpecialtyStart DateEnd Date Jose Khanna, [facility] [address] [place] [address] PCP - Generalmi Medicine10/21/21Team MemberRelationshipSpecialtyStart DateEnd Date Jose Khanna, [facility] [address] [place] [address] PCP - Generalmi Medicine10/21/21Team MemberRelationshipSpecialtyStart DateEnd Date Jose Khanna, [facility] [address] [place] [address] PCP - Generalmi Medicine10/21/21Team MemberRelationshipSpecialtyStart DateEnd Date Jose Khanna, [facility] [address] [place] [address] PCP - Generalmily Medicine10/21/21Team MemberRelationshipSpecialtyStart DateEnd Date Jose Khanna, MANAGER [employer]-[facility] [address], [place] [address] PCP - GeneralFamily Medicine10/21/21Team MemberRelationshipSpecialtyStart DateEnd Date Jose Khanna, MANA[employer]-[facility] [address] [place] [address] PCP - GeneralFamily Medicine10/21/21Team MemberRelationshipSpecialtyStart DateEnd Date Jose Khanna, MANA[employer]-[facility] [address] [place] [address] PCP - GeneralFamily Medicine10/21/21Team MemberRelationshipSpecialtyStart DateEnd Date Jose Khanna [facility] [address] [place] [address] PCP - GeneralFamily Medicine10/21/21Team MemberRelationshipSpecialtyStart DateEnd Date Jose Khanna, MANA[employer]-[facility] [address] [place] [address] PCP - GeneralFamily Medicine10/21/21Team MemberRelationshipSpecialtyStart DateEnd Date Jose Khanna MANAGER [employer]-[facility] [address] [place] [address] PCP - GeneralFamily Medicine10/21/21Team MemberRelationshipSpecialtyStart DateEnd Date Jose Khanna, MANAGER [employer]-[facility] [address] [place] [address] PCP - GeneralFamily Medicine10/21/21Team MemberRelationshipSpecialtyStart DateEnd Date Jose Khanna, MANAGER [employer]-[facility] [address] [place] [address] PCP - Generalmi Medicine10/21/21Team MemberRelationshipSpecialtyStart DateEnd Date Jose Khanna, MANAGER [employer]-[facility] [address] [place] [place] [address] PCP - [facility] Medicine10/21/21Team MemberRelationshipSpecialtyStart DateEnd Date Jose Khanna, MANAGER [employer]-[facility] [address] [place] [address] PCP - [facility] Medicine10/21/21Team MemberRelationshipSpecialtyStart DateEnd Date Jose Khanna, MANAGER [employer]-[facility] [address] [place] [address] PCP - Generalmi Medicine10/21/21Team MemberRelationshipSpecialtyStart DateEnd Date Jose Khanna, MANAGER [employer]-[facility] [address] [place] [address] PCP - Generalmi Medicine10/21/21Team MemberRelationshipSpecialtyStart DateEnd Date Sheng Buckner, MANAGER [employer]-[facility] [address] [place] [address] PCP - [facility] Vlyaiedy33/27/25Team MemberRelationshipSpecialtyStart Date End Date Sheng Buckner, MANAGER [employer] [address] [place] [address] PCP - GeneralInternal Yudoxzhx04/27/25 Goals (unrecognized section and content) Goals may [...] for Visit (unrecogniz ed section and content) ReasonCommentsShortness of [place]fire[place] tx, cardiac tamponadeChest PainReason CommentsChest PainNo longer has chest pain, [facility] with chest painPolydipsiaSpecialtyDiagnoses / ProceduresReferred By ContactReferred To Contact Diagnoses NSTEMI (non-ST elevated myocardial infarction) (HCC) NSTEMI Fly Zapata DO [address] [place] [address] [facility] [address] [place] [address] Referral IDStatusReasonStart DateExpiration DateVisits RequestedVisits [id number] DateCommentsMed Funkyk964ReasonComments Follow-upReasonCommentsDiabetesBeen running high. 190ReasonCommentsDexcom TrainingReasonCommentsMed RefillReasonCommentsFollow-upReasonCommentsDiabetes HypertensionReasonCommentskeeps biting tongue more frequent last 3 weeksReason CommentsDiabetesReasonCommentsDiabetesSugar been agye320BdjudoMgmeyxqntzphkan Blood sugarsBlood sugars have been fine except the first day was 500. Then today 215 fastingReasonCommentslump under right armReasonCommentsCGM Application Instructed patient and his girlfriend, Nicolle on how to apply the Dexcom 7. Nicolle states that she understands and I have instructed them if they need to come back they can for his next application.ReasonOnset DateCommentsMed Refill 4ReasonCommentsApplication of DexcomReasonOnset DateCommentsMed Refill [id number]654 accucheckHypertensionReasonCommentsMed Change RequestReasonOnset DateCommentsMed Ixxuum934ReasonCommentsMed Change RequestReasonOnset DateCommentsBlood Sugar Gavtzxv00/27/2024ReasonOnset DateCommentsMed Zoemef5604/21/2024ReasonCommentsMNT - IndividualSpecialtyDiagnoses / ProceduresReferred By ContactReferred To ContactEndocrinology, Diabetes & Metabolism Diagnoses Type 2 diabetes mellitus with other diabetic kidney complication ([facility]) Essential hypertension, malignant Stage 3 chronic kidney disease, unspecified whether stage 3a or 3b CKD ([facility]) Morbid obesity ([facility]) Jacob Cochran, DO [address] [place] [address] Phone: tel: fax: [facility] [address] [place] [address] Phone: tel: fax: Referral IDStatusReasonStart DateExpiration DateVisits RequestedVisits [id number] Review Specialty Services Required [id number]fivhxyjqGkqkfdzqrvVpbgjtWhaya Date CommentsAppointment Cqeteot7210/02/2024ReasonCommentsest care/ partner tested positive for Trich- needs tested Ordered Prescriptions (unrec ognized section and content) PrescriptionSigDispensedRefillsStart DateEnd Date Vitamin D, Ergocalciferol, 46432 units CAPS 50,000 Units by Per NG tube route once a week 5 capsule NIFEdipine (PROCARDIA XL) 30 MG extended release tablet Take 1 tablet by mouth daily 30 tablet carvedilol (COREG) 12.5 MG tablet Take 1 tablet by mouth 2 times daily 60 tablet cefTRIAXone (ROCEPHIN) infusion Infuse 2,000 mg intravenously every 24 hours for 16 days Compound per protocol 32 g / Ergocalciferol (VITAMIN D) 01867 units CAPS 50,000 Units by Per NG tube route once a week 5 capsule NIFEdipine (PROCARDIA XL) 30 MG extended release tablet Take 1 tablet by mouth daily 30 tablet /12/2021 carvedilol (COREG) 12.5 MG tablet Take 1 tablet by mouth 2 times daily 60 tablet rescriptionSigDispensedRefillsStart DateEnd Date amiodarone (CORDARONE) 200 MG tablet Take 1 tablet by mouth 2 times daily 60 tablet oxyCODONE-acetaminophen (PERCOCET) 5-325 MG per tablet Indications:S/P CABG (coronary artery bypass graft)Take 1 tablet by mouth every 6 hours as needed for Pain for up to 5 days. Max Daily Amount: 4 tablets 20 tablet /10/2022 pantoprazole (PROTONIX) 40 MG tablet Take 1 tablet by mouth daily for 14 days 14 tablet / clopidogrel (PLAVIX) 75 MG tablet Take 1 tablet by mouth daily 30 tablet tamsulosin (FLOMAX) 0.4 MG capsule Take 1 capsule by mouth daily 30 capsule polyethylene glycol (GLYCOLAX) 17 g packet Take 17 g by mouth daily as needed for Constipation 527 g metoprolol tartrate (LOPRESSOR) 25 MG tablet Take 1 tablet by mouth 2 times daily 60 tablet atorvastatin (LIPITOR) 20 MG tablet Take 1 tablet by mouth nightly 30 tablet aspirin 81 MG EC tablet Take 1 tablet by mouth daily 30 tablet Scheduled Active and Recently Administ ered Medications (unrecognized section and content) Medication Order/ carvedilol (COREG) tablet 12.5 mg 12.5 mg, Oral, 2 TIMES DAILY, First dose (after last modification) on Mon09/09/21 at 2100, Until Discontinued, Administer with food to minimize the risk of orthostatic hypotension * 0804 (Given - Provider: Jessica Lay RN) * 2152 (Given - Provider: Jennifer Biswas RN) * 0845 (Given - Provider: Jessica Lay RN) * 2136 (Given - Provider: Ladonna Elise RN) * 0827 (Given - Provider: Triny Lea RN) * 2100 (Due) cefTRIAXone (ROCEPHIN) 2,000 mg in sterile water 20 mL IV syringe 2,000 mg, IntraVENous, EVERY 24 HOURS, First dose on Mon09/06/21 at 1315, Until Discontinued, Antimicrobial Indications: Bloodstream Infection, Administer as slow IV Push over 5 mins Reconstitute 2 g vials with 19.2 mL of designated diluent to produce a 100mg/mL solution * 1304 (Given - Provider: Jessica Lay RN) * 1222 (Given - Provider: Jessica Lay RN) * 1320 (Given - Provider: Triny Lea RN) furosemide (LASIX) injection 40 mg 40 mg, IntraVENous, DAILY, First dose (after last modification) on Mon09/07/21 at 0900, Until Discontinued * 0900 (Automatically Held - Provider: Ben Cesar PA-C) * 0900 (Automatically Held - Provider: Ben Cesar PA-C) * 0900 (Not Given - Provider: Triny Lea RN - Reason: Other - Comment: held by provider) heparin (porcine) injection 5,000 Units 5,000 Units, SubCUTAneous, EVERY 8 HOURS SCHEDULED (3 times per day), First dose on Mon09/02/21 at 1400, Until Discontinued * 0154 (Given - Provider: BEN LAST) * 0804 (Given - Provider: Jessica Lay RN) * 1559 (Given - Provider: Jessica Lay RN) * 0006 (Given - Provider: Jennifer Biswas RN) * 0845 (Given - Provider: Jessica Lay RN) * 1638 (Given - Provider: Jessica Lay RN) * 0146 (Given - Provider: Ladonna Elise RN) * 0827 (Given - Provider: Triny Lea RN) * 1700 (Due - Provider: Ariel Sifuentes [facility]) NIFEdipine (PROCARDIA XL) extended release tablet 30 mg 30 mg, Oral, DAILY, First dose on Mon09/08/21 at 1100, Until Discontinued, Do not crush or break. * 0804 (Given - Provider: Jessica Lay RN) * 0845 (Given - Provider: Jessica Lay RN) * 0827 (Given - Provider: Triny Lea, BAUTISTA) QUEtiapine (SEROQUEL) tablet 25 mg (CANCELED) 25 mg, Per NG tube, NIGHTLY, First dose on Mon09/04/21 at 2100, Until Discontinued, Per OG * 215 (Given - Provider: Jennifer Biswas RN - Comment: no ng will speak with md for new order) QUEtiapine (SEROQUEL) tablet 25 mg 25 mg, Oral, NIGHTLY, First dose (after last modification) on Mon09/10/21 at 2230, Until Discontinued, Per OG * 0006 (Given - Provider: Jennifer Biswas RN) * 2136 (Given - Provider: Ladonna Elise, BAUTISTA) * 2100 (Due) sodium chloride flush 0.9 % injection 5-40 mL 5-40 mL, IntraVENous, EVERY 12 HOURS SCHEDULED (2 times per day), First dose on Mon08/29/21 at 0900, Until Discontinued, For Line Patency: Peripheral IV = 5 mL; Midline or Central Line = 10 mL/lumen.If following IV push medication, administer flush at same rate as the IV push. Flush volume is determined by type of infusion therapy being given. For non-viscous solutions use: Peripheral IV = 5 mL Midline or Central Line = 10 mL/lumen For viscous solutions (i.e. blood components, parenteral nutrition, contrast media, or after obtaining blood sample) use: Peripheral IV = 10 mL Midline or CentralLine = 20 mL/lumen * 0804 (Given - Provider: Jessica Lay RN) * 2153 (Given - Provider: Jennifer Biswas RN) * 1225 (Given - Provider: Jessica Lay RN) * 213 (Given - Provider: Ladonna Elise, BAUTISTA) * 0826 (Given - Provider: Triny Lea, RN) * 2100 (Due) vitamin D (ERGOCALCIFEROL) capsule 50,000 Units 50,000 Units, Per NG tube, WEEKLY, First dose on Mon09/04/21 at 1100, Until Discontinued * 0900 (Automatically Held - Provider: Sadie Quintanilla DO) Medication Order//12/2021 0.9 % sodium chloride infusion IntraVENous, at 5-250 mL/hr, PRN, if patient receiving piggyback infusions and maintenance fluids are not ordered OR KVO fluids to protect IV site / prevent frequent line interruptions/ long duration, Starting on Mon08/29/21 at 0640, For piggyback infusion, administer at [...] Administer if oral route cannot be used. * 1222 (See Alternative - Provider: Jessica Lay RN) acetaminophen (TYLENOL) tablet 650 mg(Linked Group 1) 650 mg, Oral, EVERY 6 HOURS PRN, Starting on Mon08/29/21 at 0640, Until Discontinued, Pain Mild (1-3), Fever, For temp greater than 100.4 F (38 C), Maximum dose of acetaminophen is 4000 mg from all sources in 24 hours. * 1222 (Given - Provider: Jessica Lay RN) bisacodyl (DULCOLAX) suppository 10 mg 10 mg, Rectal, DAILY PRN, Starting on Mon09/05/21 at 1838, Until Discontinued, Constipation labetalol (NORMODYNE;TRANDATE) [...] Mon08/29/21 at 0640, Until Discontinued, Nausea, Vomiting polyethylene [...] For viscous solutions (i.e. blood components, parenteral nutrition,contrast media, or after obtaining blood sample) use: Peripheral IV = 10 mL Midline or Central Line= 20 mL/lumen Order Group 1: acetaminophen (TYLENOL) tablet 650 [...] IntraVENous, EVERY 6 HOURS PRN, Starting on 08/29/21 at 0640, Until Discontinued, Nausea, Vomiting
Administer if oral route cannot be used.
Medication Order/10/ cefTRIAXone (ROCEPHIN) 2,000 mg in sterile water 20 mL IV syringe (COMPLETED) 2,000 mg, IntraVENous, ONCE, 1 dose, On Mon09/13/21 at 1645, Antimicrobial Indications: Sepsis of Unknown Etiology, Sepsis duration of therapy: Other, Other Sepsis Duration: 16 days, Administer as slow IV Push over 5 mins Reconstitute 2 g vials with 19.2 mL of designated diluent to produce a 100mg/mL solution * 1707 (Given - Provider: MARCOS QUICK) Medication Order// 0.9 % sodium chloride infusion 5-250 mL/hr, [...] and piggyback rate into rate field of order.If piggyback is infusing at a rate less [...] Midline or Central Line = 20 mL/lumen * 1712 (Given - Provider: MARCOS QUICK) Medication Order06/04///05/2022 amiodarone (CORDARONE) tablet 200 mg 200 mg, Oral, 2 TIMES DAILY, First dose (after last modification) on 06/04/22 at 0900, Until Discontinued, Hold for QTC greater than 500 and HR less than 60., Post-op * 0902 (Given - Provider: Marge Lopez RN) * 2025 (Given - Provider: Sukh Borja, BAUTISTA) * 0741 (Given - Provider: Martha Irizarry, BAUTISTA) * 2016 (Given - Provider: Elena Alvarado, BAUTISTA) * 0851 (Given - Provider: Patricia Ochoa RN) * 2100 (Due) aspirin EC tablet 81 mg 81 mg, Oral, DAILY, First dose on Mon06/02/22 at 1845, Until Discontinued, Do not crush or break. Please hold for platelets less than 100,000, Post-op * 0902 (Given - Provider: Marge Lopez RN) * 0742 (Given - Provider: Martha Irizarry, BAUTISTA) * 0851 (Given - Provider: Patricia Ochoa RN) atorvastatin (LIPITOR) tablet 20 mg 20 mg, Oral, NIGHTLY, First dose on Mon06/03/22 at 2100, Until Discontinued, Please hold for elevated liver function enzymes, Post-op * 2025 (Given - Provider: Sukh Borja RN) * 2016 (Given - Provider: Elena Alvarado, BAUTISTA) * 2100 (Due) ceFAZolin (ANCEF) 3000 mg in sterile water 30 mL IV syringe (COMPLETED) 3,000 mg, IntraVENous, EVERY 8 HOURS, 5 doses, First dose (after last reorder) on Kathy 06/02/22 at 2200, Last dose on 06/04/22 at 0600, Antimicrobial Indications: Surgical Prophylaxis, Administer over 5 mins., Post-op * 0620 (Given - Provider: Pari Mullins RN) clopidogrel (PLAVIX) tablet 75 mg 75 mg, Oral, DAILY, First dose on Mon06/03/22 at 0900, Until Discontinued, Please hold for platelets less than 100,000, Post-op * 0902 (Given - Provider: Marge Lopez RN) * 0742 (Given - Provider: Martha Irizarry, BAUTISTA) * 0859 (Given - Provider: Patricia Ochoa RN) furosemide (LASIX) injection 20 mg (COMPLETED) 20 mg, IntraVENous, ONCE, 1 dose, On 06/05/22 at 1000 * 1011 (Given - Provider: Martha Irizarry, BAUTISTA) insulin glargine (LANTUS) injection vial 19 Units 19 Units (rounded from 19.035 Units = 0.15 Units/kg 126.9 kg), SubCUTAneous, NIGHTLY, First dose onFri 06/03/22 at 2100, Until Discontinued, Hold if BG is less than 160. If patient is NOT diabetic discontinue order. If patient takes Lantus at home - notify CTS team., Post-op * 2048 (Given - Provider: Sukh Borja RN) * 2045 (Given - Provider: Elena Alvarado, BAUTISTA - Comment: bg 226) * 2099 (Due) insulin lispro (HUMALOG) injection vial 0-3 Units 0-3 Units, SubCUTAneous, NIGHTLY, First dose on Kathy 06/02/22 at 2100, Until Discontinued, If continuous tube feedings/TPN/NPO, give correction dose based on result, no reduction in dose. If eating or bolus tube feeding: Corrective Bedtime (50%) Low Dose Algorithm Glucose: Dose: 70-139 No Etmbnof198-099 1 Unit 250-349 2 Units Over 350 3 Units, Post-op * 2047 (Given - Provider: Sukh Borja RN) * 2047 (Given - Provider: Elena Alvarado, BAUTISTA - Comment: bg 226) * 2099 (Due) insulin lispro (HUMALOG) injection vial 0-6 Units 0-6 Units, SubCUTAneous, 3 TIMES DAILY WITH MEALS, First dose on Kathy 06/02/22 at 1845, Until Discontinued, Corrective Low Dose Algorithm Glucose: Dose: 70- 139 No Insulin 140-199 1 Unit 200-249 2 Units 250-299 3 Units 300-349 4 Units 350-399 5 Units Over 399 6 Units, Post-op * 0905 (Given - Provider: Marge Lopez RN) * 1306 (Given - Provider: Marge Lopez RN) * 1822 (Given - Provider: Marge Lopez RN) * 0741 (Given - Provider: Marthalori Irizarry RN) * 1137 (Given - Provider: Martha Irizarry RN) * 1647 (Given - Provider: Yasmin Jj RN) * 0854 (Not Given - Provider: Patricia Ochoa RN - Reason: Order parameters not met) * 1244 (Not Given - Provider: Patricia Ochoa RN - Reason: Order parameters not met) * 1700 (Due) metoprolol tartrate (LOPRESSOR) tablet 12.5 mg (CANCELED) 12.5 mg, Oral, 2 TIMES DAILY, First dose on Kathy 06/02/22 at 2100, Until Discontinued, Hold for pulseless than 60, SBP less than 100, if patient on vasopressors, or if patient has a temporary pacemaker, Post-op * 2025 (Given - Provider: uSkh Borja RN) * 0741 (Given - Provider: Martha Irizarry RN) * 1009 (Canceled Entry - Provider: Martha Irizarry RN) metoprolol tartrate (LOPRESSOR) tablet 25 mg 25 mg, Oral, 2 TIMES DAILY, First dose (after last modification) on [place] 06/05/22 at 2100, Until Discontinued, Hold for pulse less than 60, SBP less than 100, if patient on vasopressors, or if patient has a temporary pacemaker, Post-op * 2016 (Given - Provider: Elena Alvarado, BAUTISTA) * 0858 (Given - Provider: Patricia Ochoa, RN) * 2100 (Due) mupirocin (BACTROBAN) 2 % ointment Each Nostril, 2 TIMES DAILY, First dose on Kathy 06/02/22 at 2100, For 10 doses, Post-op * 0904 (Given - Provider: Marge Lopez RN) * 2026 (Given - Provider: Sukh Borja RN) * 0744 (Given - Provider: Martha Irizarry, BAUTISTA) * 2016 (Given - Provider: Elena Alvarado, BAUTISTA) * 0859 (Given - Provider: Patricia Ochoa, RN) * 2100 (Due) pantoprazole (PROTONIX) tablet 40 mg 40 mg, Oral, DAILY, First dose on Kathy 06/02/22 at 1845, Until Discontinued, Do not crush or break., Day 1 or when extubated, Post-op * 0902 (Given - Provider: Marge Lopez RN) * 0741 (Given - Provider: Martah Irizarry, RN) * 0859 (Given - Provider: Patricia Ochoa, BAUTISTA) polyethylene glycol (GLYCOLAX) packet 17 g 17 g, Oral, DAILY, First dose on Kathy 06/02/22 at 1845, Until Discontinued, Stir and dissolve one packet of powder (17 g) in any 4 to 8 ounces of beverage (cold, hot or room temperature) then drink, Post-op * 0903 (Given - Provider: Marge Lopez RN) * 0741 (Given - Provider: Martha Irizarry, BAUTISTA) * 0852 (Not Given - Provider: Patricia Ochoa RN - Reason: Patient/family refused) sennosides-docusate sodium (SENOKOT-S) 8.6-50 MG tablet 1 tablet 1 tablet, Oral, 2 TIMES DAILY, First dose on Kathy 06/02/22 at 2100, Until Discontinued, Post-op * 1305 (Given - Provider: Marge Lopez RN - Comment: med not available earlier) * 2025 (Given - Provider: Sukh Borja RN) * 0742 (Given - Provider: Martha Irizarry, BAUTISTA) * 2017 (Given - Provider: Elena Alvarado RN) * 0851 (Not Given - Provider: Patricia Ochoa RN - Reason: Patient/family refused) * 2100 (Due) sodium chloride flush 0.9 % injection 5-40 mL 5-40 mL, IntraVENous, EVERY 12 HOURS SCHEDULED (2 times per day), First dose on Kathy 06/02/22 at 2100, Until Discontinued, For Line Patency: Peripheral IV = 5 mL; Midline or Central Line = 10 mL/lumen.If following IV push medication, administer flush at same rate as the IV push. Flush volume is determined by type of infusion therapy being given. For non-viscous solutions use: Peripheral IV = 5 mL Midline or Central Line = 10 mL/lumen For viscous solutions (i.e. blood components, parenteral nutrition, contrast media, or after obtaining blood sample) use: Peripheral IV = 10 mL Midline or CentralLine = 20 mL/lumen, Post-op * 0903 (Given - Provider: Marge Lopez RN) * 2025 (Given - Provider: Sukh Borja, RN) * 0751 (Given - Provider: Martha Irizarry, RN) * 2049 (Given - Provider: Elena Alvarado, BAUTISTA) * 0852 (Given - Provider: Patricia Ochoa, RN) * 2100 (Due) tamsulosin (FLOMAX) capsule 0.4 mg 0.4 mg, Oral, DAILY, First dose on 06/04/22 at 1145, Until Discontinued, Do not crush or break. * 1305 (Given - Provider: Marge Lopez RN) * 0744 (Given - Provider: Martha Irizarry, BAUTISTA) * 0856 (Given - Provider: Patricia Ochoa, RN) Medication Order//05/2022 propofol injection 10 mcg/kg/min 126.9 kg (7.614 mL/hr, rounded to 7.6 mL/hr), IntraVENous, CONTINUOUS, Starting on Kathy 06/02/22 at 1845, Until Discontinued, Titrate Infusion? Yes, Initial Infusion Dose: 10 mcg/kg/min, Goal of Therapy: RASS of -1 to 1, Contact Provider if: Patient is receiving maximum dose and is not a chieving the goal of therapy, For sedation, titrate to RASS -1 to -2 Dose Range: 5 to 50 mcg/kg/minMax dose: 50 mcg/kg/min Contact physician if max [...] response, next titration rate change may be adjustedby one-half of the previous rate change If patient fails sedation interruption, resume propofol titration at 50% of previous rate Do not administer through the same I.V. catheter with blood or plasma. Tubing and any unused portions of propofol vials should be discarded after 12 hours., Post-op Medication Order06/04////05/2022 0.9 % sodium chloride infusion IntraVENous, at [...] bottles total after surgery. Contact CTS team ifpatient does not meet hemodynamic goals., Post-op albumin human 5 % IV solution 25 g 25 g, IntraVENous, at 500 mL/hr, Administer over 60 Minutes, PRN, Other, PAD below goal and Low CI and/or Low BP and /or Low urine output per hemodynamic goals, Starting on Kathy 06/02/22 at 1824, Up toa max of 2000 mL. Notify surgeon for further orders if max volume infused., Post-op bisacodyl (DULCOLAX) suppository 10 mg 10 mg, Rectal, DAILY PRN, Starting on Kathy 06/02/22 at 1824, Until Discontinued, Constipation, Secondline therapy for constipation, After 24 hours, if [...] of each other unless specifically ordered., Post-op * 0212 (Given - Provider: Pari Mullins, RN) * 0632 (Given - Provider: Pari Mullins, RN) * 1315 (See Alternative - Provider: Martha Irizarry, RN) * 0726 (See Alternative - Provider: Elena Alvarado, RN) fentaNYL (SUBLIMAZE) injection 50 mcg(Linked Group 2) 50 mcg, IntraVENous, EVERY 1 HOUR PRN, Starting on Kathy 06/02/22 at 1824, Until Discontinued, Pain Severe (7-10), If oral and IV narcotics ordered, use oral first and only use IV if oral is ineffectiveor cannot take oral. Do Not give oral and IV within 1 hour of each other unless specifically ordered., Post-op * 0212 (See Alternative - Provider: Pari Mullins RN) * 0632 (See Alternative - Provider: Pari Mullins, RN) * 1315 (Given - Provider: Martha Irizarry, BAUTISTA) * 0726 (Given - Provider: Elena Alvarado, RN) glucagon (rDNA) injection 1 mg 1 mg, IntraMUSCular, PRN, Starting on Kathy 06/02/22 at 1824, Until Discontinued, Low blood sugar, Blood glucose less than 70 mg/dL and patient NOT ALERT or NPO and does not have IV access., After administration, attempt intravenous access and start D5W at 100 mL/hr. Repeat blood glucose in 15 minutesx2 and notify provider., Post-op glucose chewable tablet 16 g 16 g (4 tablet), Oral, PRN, Starting on Kathy 06/02/22 at 1824, Until Discontinued, Low blood sugar, If blood glucose is LESS THAN 70 mg/dL and patient is alert and tolerating oral. Give 4 tablets (16g)Repeat blood glucose in 15 minutes. If blood glucose is LESS THAN 70 mg/dL, repeat treatment and recheck blood glucose in 15 minutes x 2. If blood glucose remains LESS THAN 70 mg/dL, notify provider., Post-op hydrALAZINE (APRESOLINE) injection 5 mg 5 mg, IntraVENous, EVERY 5 MIN PRN, Starting on Kathy 06/02/22 at 1824, Until Discontinued, High BloodPressure, Give for sustained SBP > 160, Refer [...] output below 30 mL/hr or if patient anna peritoneal or hemodialysis. Magnesium Level: Dose: Less [...] mg/dL No replacement. Repeat Magnesium level 60 minutespost infusion., Post-op ondansetron (ZOFRAN) injection 4 mg(Linked [...] from all sources in 24 hours., Post-op * 0155 (See Alternative - Provider: Pari Mullins RN) * 0901 (See Alternative - Provider: Marge Lopez RN) * 1305 (See Alternative - Provider: Marge Lopez RN) * 1727 (See Alternative - Provider: Marge Lopez RN) * 2320 (See Alternative - Provider: Sukh Borja RN) * 0615 (See Alternative - Provider: Sukh Borja, BAUTISTA) * 101 (See Alternative - Provider: Martha Irizarry, RN) * 164 (See Alternative - Provider: Yasmin Jj, BAUTISTA) * 2024 (Given - Provider: Elena Alvarado, RN) * 035 (See Alternative - Provider: Elena Alvarado, BAUTISTA) * 133 (See Alternative - Provider: Patricia Ochoa RN) oxyCODONE-acetaminophen (PERCOCET) 5-325 MG per tablet 2 tablet(Linked Group 4) 2 tablet, Oral, EVERY 4 HOURS PRN, Starting on Kathy 06/02/22 at 1824, Until Discontinued, Pain Severe(7-10), Maximum dose of acetaminophen is 4000 mg from all sources in 24 hours., Post-op * 0155 (Given - Provider: Pari Mullins RN) * 0901 (Given - Provider: Marge Lopez RN) * 1305 (Given - Provider: Marge Lopez RN) * 1727 (Given - Provider: Marge Lopez RN) * 2320 (Given - Provider: Sukh Borja RN) * 0615 (Given - Provider: Sukh Borja, BAUTISTA) * 101 (Given - Provider: Martha Irizarry, BAUTISTA) * 164 (Given - Provider: Yasmin Jj, BAUTISTA) * 2024 (See Alternative - Provider: Elena Alvarado, BAUTISTA) * 035 (Given - Provider: Elena Alvarado, BAUTISTA) * 1334 (Given - Provider: Patricia Ochoa RN) potassium [...] Notify provider. Repeat potassium level 30 minutes post- infusion and follow protocol as indicated., Post-op sodium [...] For viscous solutions (i.e. blood components, parenteral nutrition,contrast media, or after obtaining blood sample) use: Peripheral IV = 10 mL Midline or Central Line= 20 mL/lumen, Post-op Order Group 1: dextrose bolus 10% 125 mLJump to med 125 mL, IntraVENous, at 937.5 mL/hr, Administer over 8 Minutes, PRN, Other, Blood glucose 40 - 69 mg/dL and patient NOT ALERT or NPO, Starting on Kathy 06/02/22 at 1824
Start D5W at 100 mL/houruntil ordering provider can be reached. Repeat blood [...] and recheck blood glucose in 15 minutes x2. If using Glucostabilizer, dose as instructed per [...] and IV within 1 hour of each otherunless specifically ordered.
Post-op Group 3: ondansetron (ZOFRAN-ODT) [...] Kathy 06/02/22 at 1824, Until Discontinued, Pain Severe(7-10)
Maximum dose of acetaminophen is 4000 mg from all sources in 24 hours.
Post-op (unrecognized sect ion and content) No Status Records FoundNo Status Records FoundNo Status Records FoundNo Status Records FoundNo Status Records FoundNo Status Records FoundNo Status Records FoundNo Status Records FoundNo Status Records Found INFORMATION SOURCE (unrecogn ized section and content) DATE CREATED AUTHOR 04/09/2022 [facility] DATE CREATED AUTHOR AUTHOR'S ORGANIZ ATION 05/25/2022 [facility] DATE CREATED AUTHOR AUTHOR'S ORGANIZ ATION 10/24/2022 [facility] DATE CREATED AUTHOR AUTHOR'S ORGANIZ ATION 04/03/[address] [facility] DATE CREATED AUTHOR AUTHOR'S ORGANIZ ATION 09/06/2023 [facility] DATE CREATED AUTHOR AUTHOR'S ORGANIZ ATION 02/16/2024 [facility] DATE CREATED AUTHOR AUTHOR'S ORGANIZ ATION 11/16/2024 [facility] DATE CREATED AUTHOR AUTHOR'S ORGANIZ ATION 12/13/2024 [facility] DATE CREATED AUTHOR AUTHOR'S ORGANIZ ATION 12/31/2024 [facility] FOR RECORDS PERTAINING TO PATIENTS WHO ARE [...] BE BASED ON THE PRIMARY CLINICAL RECORDS. [facility] provides no warranty or guarantee of the accuracy or completeness of information in this document.
[2025-01-17 17:40] LABS: Cast Seen? NONE SEEN #/LPF (NONE SEEN); Crystals Seen? None Seen #/HPF (None Seen); Urine Culture Indicated NO
[2025-01-17 17:52] VITALS: BP 148/84
[2025-01-20 20:08] LABS: Neisseria gonorrhoeae, NAA Negative (Negative)
== END 2025-01-17 17:54 | disposition home or self-care (01) ==
PROVIDERS: Emergency Provider Emergency Medicine; PCP Nurse Practitioner Family
DX: R31.9 Hematuria, unspecified (principal); E11.9 Type 2 diabetes mellitus without complications; I25.10 Atherosclerotic heart disease of native coronary artery without angina pectoris; Z79.02 Long term (current) use of antithrombotics/antiplatelets; Z87.442 Personal history of urinary calculi; Z79.85 Long-term (current) use of injectable non-insulin antidiabetic drugs; Z79.4 Long term (current) use of insulin; F17.200 Nicotine dependence, unspecified, uncomplicated
CPT/HCPCS: 81001; 87491; 87591; 99283

== ENCOUNTER 2025-02-26 08:04 | Outpatient (OUT) | payer MEDICAID, SELFPAY ==
--- OUTSIDE RECORDS SUMMARY | 2025-02-13 10:40 | XMS_ITS | Encounter Summary ---
Author Organization [facility] Address [address] [place] [address] Care Team Providers Care Oceanography Professor Name Role Phone Munira Das MD Primary Care Provider [phone] Encounter Details DateTypeDepartmentCare Team (Latest Contact Info)Mpoghirlpgg97/11/2025 10:40 AM ESTFollow-[facility] [address] [place] [id number] Jacob Crane [address] [place] [address] Type 2 diabetes mellitus with hyperglycemia, with long-term current use of insulin ([facility]) (Primary Dx); Dyslipidemia; Hypertension, unspecified type Social History Tobacco UseTypesPacks/DayYears UsedDateSmoking Tobacco: FormerCigarettes0.314 Smokeless Tobacco: NeverAlcohol UseStandard Drinks/WeekCommentsYes0 (1 standard drink = 0.6 oz pure alcohol)RAREHumiliation, Afraid, Rape, and Kick questionnaireAnswerDate RecordedWithin the last year, have you been afraid of your partner or ex-partner?No07/04/2023Emotionally AbusedNot on file07/04/2023 Physically AbusedNot on file07/04/2023Sexually AbusedNot on file07/04/2023 Overall Financial Resource Strain (CARDIA)AnswerDate RecordedHow hard is it for you to pay for the very basics like food, housing, medical care, and heating?Not hard at all3PHQ-2AnswerDate RecordedPatient Health Questionnaire-2 [id number] Safety & EnvironmentAnswerDate RecordedWithin the last year, have you been afraid of your partner or ex-partner?No07/04/2023Emotionally AbusedNot on file07/04/2023hysically AbusedNot on file07/04/2023Sexually Abused Not on file07/04/2023In the past year have you been physically or sexually abused?Unrecognized value07/04/2023TransportationAnswerDate RecordedIn the past 12 months, has lack of transportation kept you from medical appointments or from getting medications?No02/20/2023Lack of Transportation (Non-Medical)Not on file 02/20/2023Housing Stability Vital SignAnswerDate RecordedUnable to Pay for Housing in the Last YearNot on file02/20/2023Number of Places Lived in the Last YearNot on file02/20/2023In the last 12 months, was there a time when you did not have a steady place to sleep or slept in amaelter (including now)?No 02/20/2023Hunger Vital SignAnswerDate RecordedWithin the past 12 months, you worried that your food would run out before you got the money to buymore.Never true02/20/2023Ran Out of Food in the Last YearNot on file02/20/2023Sex and Gender InformationValueDate RecordedSex Assigned at ZdnxjIjpo07/11/2025 10:14 AM EDTLegal NwvZvfk9209/15/2021 8:42 AM EDTGender QhxgbkibHqxn18/11/2025 10:14 AM EDT Sexual OrientationHeterosexual or Ntvbdubj77/11/2025 10:14 AM EDTdocumented as of this encounter Last Filed Vital Signs Vital SignReadingTime TakenCommentsBlood Xiiyjfya180/7202/13/2025 10:45 AM EST Yekvu581602/13/2025 10:45 AM ESTTemperature--Respiratory Rate--Oxygen Saturation 98%02/13/2025 10:45 AM ESTInhaled Oxygen Concentration--Gtpdpi260 kg (255 lb) 02/13/2025 10:45 AM ESTHeight--Body Mass Index43.77003/20/2024 10:56 AM EST documented in this encounter Patient Instructions * Patient Instructions* Jacob Zavala Royce - 02/13/2025 10:40 AM EST While on sGLT2 inhibitor Invokana?? (Canagliflozin), Farxiga?? (dapagliflozin), Jardiance?? (empagliflozin), Steglatro?? (ertugliflozin) Stay well-hydrated. Watch for hypoglycemia (low [...] fasting to minimize the risk of ketoacidosis. While on GLP1 receptor agonist or GLP1/GIP dual agonist Daily: Victoza?? or Sexanda?? (liraglutide), Adlyxin?? (lixisenatide), Rybelsus?? (oral semaglutide), Byetta?? (exenatide)-twice daily Weekly: Trulicity?? (dulaglitide), Ozempic?? or Wegovy?? (semaglutide), Mounjaro?? or Zepbound?? (tirzepatide), Bydureon?? (exenatide) Stay well-hydrated. Try to eat small [...] person, and engage in resistance/endurance exercises regularly. documented in this encounter Progress Notes * Jacob Crane - 02/13/2025 10:40 AM EST Images from the original note were not included. REASON FOR VISIT: Bhupinder Ghotra is a 39 y.o. male who is being seen today in consultation at the request of No ref.provider found for evaluation of his diabetes. The patient's primary care provider is Munira Das MD. Subjective Patient doing well overall. No acute concerns Lost 13 pounds in the last 3 months. A1c today - 6.6 ( >>-- 6.7 in 11/2024 Follows with Nephrology for CKD He was seen for calcium issues in the past which [...] Diabetes education: [YES] Seen by a certified massage therapist (CDE) within 12 months : February 2024 Meal plan: [YES] Seen by a vice president of manufacturing within 12 months [] Consistent carbohydrate diet [...] HYPOglycemia Insulin regimen: BASAL insulin: [Lantus] _[ 62 ] units [] Once Daily AM [x] [...] of BG) dapagliflozin (Farxiga)10 mg daily Trulicity 3 mg weekly Diabetes-related symptoms and information Symptom Yes No Comment Hypoglycemia [] [x] Increasing urination [] [x] Increasing drinking/thirst [] [x] Weight loss [] [x] Recent changes in vision [] [x] Chest pain/pressure [] [x] Nausea [] [x] Vomiting [] [x] Early satiety [x] [] Feet numbness/pain/tingling [] [x] Unsteadiness [] [] Claudication [] [] Depression [] [] Patient seeing title attorney/ arch cushion skiving machine operator regularly [x] [] Last exam date: 2023 Last exam results: Patient seeing dentist regularly [] [x] Patient seeing human intelligence regularly [] [x] Last exam date: Last exam results: REVIEW OF SYSTEMS Review of Systems Constitutional: Negative for fatigue and fever. Eyes: Negative for photophobia and visual disturbance. Respiratory: Negative for cough and shortness of breath. Cardiovascular: Negative for chest pain and palpitations. Gastrointestinal: Negative for abdominal pain, constipation, diarrhea and vomiting. Endocrine: Negative for polydipsia, polyphagia and polyuria. Neurological: Negative for light-headedness and headaches. Medical History[1] Surgical History[2] Current Medications[3] Allergies[4] Family History[5] reports that he has quit smoking. His smoking use included cigarettes. He has a 4.2 pack-year smoking history. He has never used smokeless tobacco. He reports current alcohol use. He reports that he does not use drugs. Objective PHYSICAL EXAM: Vitals: 02/13/25 1045 BP: 108/72 BP Location: Right arm Patient Position: Sitting BP Cuff Size: Large adult Pulse: 82 SpO2: 98% Weight: 116 kg (255 lb) Wt Readings from Last 5 Encounters: 02/13/25 116 kg (255 lb) 11/14/24 122 kg (268 lb) 03/20/24 129 kg (283 lb 9.6 oz) 09/18/23 132 kg (290 lb 8 oz) 07/04/23 132 kg (291 lb 6.4 oz) Ht Readings from Last 5 Encounters: 03/20/24 1.626 m (5' 4 ) 09/18/23 1.626 m (5' 4 ) 07/04/23 1.626 m (5' 4 ) 05/17/23 1.626 m (5' 4 ) 02/20/23 1.626 m (5' 4 ) Body mass index is 43.77 kg/m??. Physical Exam Constitutional: Appearance: Normal appearance. He is obese. HENT: Head: Normocephalic and atraumatic. Eyes: Pupils: Pupils are equal, round, and reactive to light. Cardiovascular: Rate and Rhythm: Normal rate. Pulses: Normal pulses. Pulmonary: Effort: Pulmonary effort is normal. Neurological: Mental Status: He is alert and oriented to person, place, and time. Psychiatric: Mood and Affect: Mood normal. Component Yes No Comment Lipohypertrophy at insulin injection sites or infusion set insertion sites [x] [] RLQ with bruise 2x 2 cm Date of feet exam: Foot deformities [] [] Skin lesions [] [] Nail lesions [] [] Distal pulpses [] Normal [] Diminished [] Absent Intact sensation to 10-g monofilaments [] Normal [] Diminished [] Absent Intact ankle DTR [] [] Intact sensation to 128-Hz tuning forks [] [] Intact pinprick sensation [] [] LABS: Lipid profile, 11/14/2024 Component Ref Range & Units 3 mo ago CHOLESTEROL 150 - 200 mg/dL 150 TRIGLYCERIDE 27 - 150 mg/dL 244 High HDL CHOLESTEROL >39 mg/dL 29 Low LDL (CALC) <130 mg/dL 72 Comment: LDL <100 mg/dL - Desirable LDL >160 mg/dL - High Risk CHOLESTEROL:HDL 1.0 - 5.0 5.2 High VERY LOW LIPOPROTEIN 0 - 30 mg/dL 49 High Recent Data from [facility] Related to POCT Hemoglobin A1c Component 06/10/24 [...] High 52 High -- -- -- Total bilirubin 0.9 0.8 -- -- -- -- eGFR (CKD-EPI)non-race dependent 39 Low 39 Low -- -- 35 Low 40 Low Component 11/23/23 06/20/23 12/16/22 Cholesterol 166 140 Low 219 High Triglycerides 232 High 213 High 461 High HDL Cholesterol 31 Low 35 Low 43 VLDL 46 High 43 High 92 High LDL (calc) 89 62 RESULT NOT REPORTED DUE TO HIGH TRIGLYCERIDE Cholesterol:HDL Ratio 5.4 High 4 5.1 High Component 12/31/23 02/15/23 12/16/22 06/08/22 11/16/21 08/27/21 White Blood Cells 7.1 7.2 8.0 9.0 6.6 10.0 RBC count 5.31 5.68 5.61 3.42 Low 4.74 4.74 Hemoglobin 15.5 16.3 15.9 10.2 Low 13.3 13.5 Hematocrit 47.2 49.1 High 48.4 30.2 Low 40.3 40.2 Platelets 236 234 233 393 290 271 Component Ref Range & Units 08/09/22 14:00 Microalb, Ur <21 mg/L 301 High Creatinine, Ur 39.0 - 259.0 mg/dL 66.3 Microalb/Custom Frame Assembler. Ratio <17 mcg/mg creat 454 [facility] ADmantX Specimen Collected: 08/09/22 14:00 HbA1c: Lab Results Component Value Date HGBA1C 6.7 11/14/2024 Lab Results Component Value Date WBC 8.08 05/03/2023 HGB 15.5 05/03/2023 HCT 46.5 05/03/2023 PLT 256 05/03/2023 Lab Results Component Value Date ALT 73 (H) 05/03/2023 AST 38 05/03/2023 CREATININE 1.93 (H) 07/04/2023 EGFR 44.6 (L) 07/04/2023 GLUCOSE 112 (H) 07/04/2023 No results found for: CHOL , LDLCALC , HDL , TRIG Cholesterol in LDL by direct assay: No results found for: LDLDIRECT NON-HDL cholesterol: No results found for: LDL MICROALB/CREAT RATIO: No results found for: MICROALBCREA , MICROALBUR No components found for: NT PRO-BNP No results found for: BNP No results found for: TSH No results found for: FREET4 No results found for: KCG55ZT , IA2 , ZNT8A , NTIB , CPEPTIDE Blood Glucose Monitoring Results, Interpretation, Report: Indication for CGM: Evaluate for hyperglycemia and hypoglycemia Glucometer: Method: [Downloaded] CGM: [DEXCOM?? G7]: % Time CGM is active (target above 90): Results/Impression/Conclusion: [] Basal/Bolus insulin imbalance with significant glycemic variability [] Overnight blood glucose reduction [] Fasting hypoglycemia [] Postprandial hypoglyemia: after [] Breakfast [] lunch [] evening meal [] nightime snack [] Hypoglycemia due to over-correction [] Fasting hyperglycemia [] Postprandial hyperglycemia: after [] Breakfast [x] lunch [x] evening meal [] nightime snack [] Hyperglycemia due to missing the scheduled dose of insulin/glucose-lowering medication [] Physical activity-related hypoglycemia: [] before [] during [] after physical activity Assessment/Plan Last HbA1c: Lab Results Component Value Date HGBA1C 6.7 11/14/2024 [x] The above LAB and/or imaging results were reviewed during this visit. DIABETES MELLITUS. Bhupinder Ghotra has diabetes mellitus [Type 2] with hyperglycemia and also complicated by nephropathy and cerebrovascular disease. [] Unstable - significant adjustment needed as below [x] Stable - but significant adjustment were made to further improve the outcome. Individualized HbA1c target based on following factors: less than [ 7.0 % (CGM goals: time in vofsq06-408 mg/dL of 70%) or preprandial glucose=80-130 mg/dL; bedtime glucose = 80-180 mg/dL ] Risk of hypoglycemia: [Medium] Disease duration: [5 years or less] Life expectancy: [Long] Significant comorbidities (microvascular complications): [One] Vascular complications: [One] Patient attitude/efforts: [Intermediate] Resources/support: [Intermediate] Instructions to patient: [] The concept of bolus/basal insulin and its pharmacokinetics/pharmacodynamics were discussed withthe patient to his/her understanding. [] Education on how to match mealtime insulin doses to carbohydrate intake was provided to the patient including correct timing of mealtime insulin injection [x] Patient was made aware of medication changes and advised to update medication list [x] Patient was instructed to rotate insulin injection sites [x] Hypoglycemia action plan was discussed and written instructions were given. [x] The concept and utility of continuous glucose monitoring (CGM) focusing on blood glucose trendswere discussed in detail. Blood glucose monitoring continues to be necessary to validate or confirm CGM values; for example, when symptoms do not match sensor glucose values and during the sensor warm-up period. [x] Patient was instructed to rotate CGM and/or pump infusion sites [] Insulin Pump Device Comparison Chart by KEATON??program was provided to the patient with verbal explanation [] Patient to send Blood Glucose logs in 2 weeks. [x] Patient was instructed to call if hypoglycemia occurs, or if Blood Glucose unimproved after 1-2weeks, due to inherent high potential for insulin and/or oral agent toxicity/adverse event. [] I discussed with the patient pathophysiology and natural history of diabetes. [] I emphasized the importance of glucose control, blood pressure control and cholesterol management to prevent/delay the chronic complications. Non-insulin glucose-lowering agents: [] Metformin [] DPP IV (Dipeptidyl peptidase IV) inhibitor (gliptin) [] Sulfonylurea [] Meglitinide [] TZD (Thiazolidindione, glitazone) [x] sGLT-2 (sodium glucose cotransporter-2) inhibitor (gliflozin) : continue dapagliflozin (Farxiga)10 mg daily [x] GLP-1 (Glucoagon-like peptide-1) receptor agonist : Trulicity increase from 3.0 to 4.5 mg weekly [] GLP-1/GIP-1 receptors co-agonist [] Brochure of Oral & Injectable Medications for Type 2 Diabetes by ADA was provided to the patient with verbal explanation The following changes were made in insulin regimen: BASAL insulin: [Lantus] - Decrease from 62 units, once starting the new dose of 4.5 mg of Trulicity) _[ 55 ] units [] Once Daily AM [x] Once Daily at bedtime [] Twice daily BOLUS (meal) insulin: [NONE] [] Option 1 by insulin to carb ratio = 1 unit for every [ ] grams of carbohydrate in a meal [] Option 2 [ ] units with each meal (reduce by half for a smaller size) [] Option 3 [ ] units with breakfast (reduce by half for a smaller size) [ ] units with lunch (reduce by half for a smaller size) [ ] units with evening meal (reduce by half for a smaller size) + additional units by correctional glucose scale as below [] 2-10 AC(>150 mg/dL of BG), 2-8 HS(>200 mg/dL of BG) [] 1-5 AC(>150 mg/dL of BG), 1-4 HS(>200 mg/dL of BG) [] The written insulin dosing instruction with hypoglycemia action plan was provided to the patient [x] Verbal explanation was provided with answers to questions by the patient/family member [x] The patient/family member verbalized understanding 2. DYSLIPIDEMIA Last lipid panel -25 - LDL of 72, near goal Continue with Atorvastatin 80 once daily Diagnoses and all orders for this visit: Type 2 diabetes mellitus with hyperglycemia, with long-term current use of insulin ([facility]) - POCT glycosylated hemoglobin (Hb A1C) - dulaglutide (Trulicity) 4.5 mg/0.5 mL pen injector; Inject 4.5 mg under the skin every 7 (seven) days. Dyslipidemia Hypertension, unspecified type Follow up in about 6 months (around 08/14/2025). Harshil Cortez MD, Fellow By using the attestations below, the signing clinician agrees that I have read and verify that thedocumentation has been personally reviewed by me and ensure that the documentation accurately reflects the encounter. GC: I personally saw this patient on the day of the encounter, performed the salguero portion(s) of the service and participated in the management and confirm the resident's documentation. Please note there may be an additional personal documentation from me. Additional Comments: Jacob Crane MD [1] Past Medical History: Diagnosis Date Allergic rhinitis Anxiety Cerebral embolism Chronic kidney disease Coronary artery disease Delirium Depression Diabetes mellitus (CMS/HCC) Dilated cardiomyopathy (CMS/HCC) Disease of thyroid gland ED (erectile dysfunction) HHNC (hyperglycemic hyperosmolar nonketotic coma) (CMS/HCC) Hyperlipidemia Hyperparathyroidism Hypertension Morbid obesity (CMS/HCC) Myocardial infarction (CMS/HCC) Persistent proteinuria Pneumonia Priapism Renal cyst Sepsis (CMS/HCC) Septicemia (CMS/HCC) Stroke (CMS/HCC) [2] Past Surgical History: Procedure Laterality Date CARDIAC CATHETERIZATION CORONARY ARTERY BYPASS GRAFT X2 MR HEAD ANGIO WO IV CONTRAST 09/08/2021 MRA HEAD WO IV CONTRAST 09/08/2021 MR NECK ANGIO WO IV CONTRAST 09/08/2021 MRA NECK WO IV CONTRAST 09/08/2021 OTHER SURGICAL HISTORY surgery for priapism RENAL BIOPSY [3] Current Outpatient Medications: amiodarone (Pacerone) 200 mg tablet, Take 200 mg by mouth at bedtime., Disp: , Rfl: ARIPiprazole (Abilify) 5 mg tablet, Take 5 mg by mouth in the morning., Disp: , Rfl: aspirin 81 mg EC tablet, Take 81 mg by mouth in the morning., Disp: , Rfl: atorvastatin (Lipitor) 80 mg tablet, Take 80 mg by mouth at bedtime., Disp: , Rfl: blood-glucose sensor (Dexcom G7 Sensor) device, 1 each., Disp: , Rfl: calcium carbonate (Tums) 200 mg calcium (500 mg) chewable tablet, take and chew 2 tablets by mouth twice a day, Disp: , Rfl: carvedilol (Coreg) 25 mg tablet, Take 25 mg by mouth with breakfast and with evening meal., Disp: ,Rfl: cetirizine (ZyrTEC) 10 mg tablet, Take 10 mg by mouth at bedtime., Disp: , Rfl: clopidogrel (Plavix) 75 mg tablet, Take 75 mg by mouth in the morning., Disp: , Rfl: Dexcom G4 [place] surveillance system monitor (Dexcom G7 Automatic Bow Maker Machine Tender) misc, 1 Device in the morning., Disp: , Rfl: Droplet Pen Needle 31 gauge x 1/4 needle, use 1 PEN NEEDLE to inject MEDICATION subcutaneously as directed, Disp: , Rfl: dulaglutide (Trulicity) 3 mg/0.5 mL pen injector, Inject 3 mg under the skin every 7 (seven) days. Do not start before December 16, 2024., Disp: 2 mL, Rfl: 2 Farxiga 10 mg, Take 10 mg by mouth in the morning., Disp: , Rfl: FLUoxetine (PROzac) 20 mg capsule, Take 20 mg by mouth in the morning., Disp: , Rfl: fluticasone (Flonase) 50 mcg/actuation nasal spray, Administer 2 sprays into each nostril in the morning., Disp: , Rfl: fluticasone (Veramyst) 27.5 mcg/actuation nasal spray, 2 sprays if needed., Disp: , Rfl: Lantus Solostar U-100 Insulin 100 unit/mL (3 mL) injection pen, Inject 62 Units under the skin at bedtime., Disp: , Rfl: lisinopril 5 mg tablet, Take 5 mg by mouth in the morning., Disp: , Rfl: loratadine-pseudoephedrine (Claritin-D 24-hour) 10-240 mg 24 hr tablet, 1 tablet., Disp: , Rfl: metoprolol succinate XL (Toprol-XL) 25 mg 24 hr tablet, Take 25 mg by mouth in the morning., Disp: , Rfl: metoprolol tartrate (Lopressor) 25 mg tablet, Take 1 tablet by mouth in the morning and at bedtime., Disp: , Rfl: TRUEplus Lancets 33 gauge misc, use 1 LANCET to TEST BLOOD SUGAR every morning, Disp: , Rfl: Vraylar 1.5 mg capsule, Take 1.5 mg by mouth in the morning., Disp: , Rfl: [4] Allergies Allergen Reactions Melon Other reaction(s): Swelling of Lip/Tongue/Throat Bupropion Hcl Increased irritability and insomnia Food Allergy Formula Watermelon, cantaloupe, honeydew Tomato Other reaction(s): Swelling of Lip/Tongue/Throat [5] Family History Problem Relation Name Age of Onset Diabetes Mother Mental illness Mother documented in this encounter Plan of Treatment DateTypeDepartmentCare Team (Latest Contact Info)Qybaanubgey98/10/2026 10:00 AM EDTFollow-Up [facility] [address] [place] [address] Jacob Crane [address] [place] [address] documented as of this encounter Procedures Procedure NamePriorityDate/TimeAssociated DiagnosisCommentsPOCT GLYCOSYLATED HEMOGLOBIN (HGB A1C)Njhaafo3002/13/2025 11:06 AM EST Type 2 diabetes mellitus with hyperglycemia, with long-term current use of insulin ([facility]) documented in this encounter Results * (ABNORMAL) POCT glycosylated hemoglobin (Hb A1C) (02/13/2025 11:06 AM EST) ComponentValueRef RangeTest MethodAnalysis TimePerformed AtPathologist SignatureHemoglobin A1C6.6SOURCE:BloodLot Number#[id number] DATESpecimen (Source)Anatomical Location / LateralityCollection Method / VolumeCollection TimeReceived TimeBloodVenous blood specimen / Irgvpit3902/13/2025 11:06 AM EST Narrative Authorizing ProviderResult TypeResult StatusJacob CranePOINT OF CARE TEST ENTER/EDIT ORDERABLESEdited Result - Final documented in this encounter Visit Diagnoses Diagnosis Type 2 diabetes mellitus with hyperglycemia, with long-term current use of insulin ([facility])- Primary Dyslipidemia Other and unspecified hyperlipidemia Hypertension, unspecified type documented in this encounter Care Teams Team MemberRelationshipSpecialtyStart DateEnd Date Munira Das MD PCP - GeneralFamily Kjcjxbpi02/14/22documented as of this encounter
--- OUTSIDE RECORDS SUMMARY | 2025-02-26 08:07 | XMS_ITS | Clinical Summary ---
Author Organization [facility] Address [id number] [address] [place] [address] Care Team Providers Care Engineering Technologist Name Role Phone Luis Felipe Buckner APRN-ANGLE BENDER Primary Care Provider + Allergies Active AllergyReactionsCriticalityNoted DateCommentsFood Allergy Formula 09/01/2021 Watermelon, Honeydew, Cantelope ZjzpkiTnq37/29/2022upropion FuoNks0601/26/2022 Increased irritability and insomnia Medications MedicationSigDispense QuantityRefillsLast FilledStart DateEnd DateStatus fluticasone propionate (FLONASE) 50 mcg/actuation nasal spray Indications:Seasonal allergic rhinitis due to pollenAdminister 2 sprays into each nostril in the morning. 15.8 mL ctive EYE ITCH RELIEF 0.025 % (0.035 %) ophthalmic solution INSTILL 1 DROP INTO BOTH EYES TWICE A DAY XHAEEVMI39/21/2022ctive aspirin 81 mg Take 1 tablet (81 [...] Indications:Uncontrolled type 2 diabetes mellitus with hyperglycemia ([facility]) Monitor blood sugars twice daily 60 strip ctive lancets (accu-chek soft touch) [facility] Indications:Uncontrolled type 2 diabetes mellitus with hyperglycemia ([facility] [place] Monitor blood sugars twice daily 100 each ctive Additional Information Patient not taking.Reported on 12/30/2024 blood-glucose meter (glucose monitoring kit) kit Indications:Uncontrolled type 2 diabetes mellitus with hyperglycemia ([facility] [place]) Use as instructed 1 each 07/12/2022ctive alcohol swabs (ALCOHOL PREP PADS) pads, medicated Indications:Uncontrolled type 2 diabetes mellitus with hyperglycemia ([facility]) Apply 1 Pad topically in the morning and at bedtime. 100 each ctive lancets (TRUEPLUS LANCETS) 33 gauge [facility] 1 Lancet by miscellaneous route in the morning. 90 each ctive blood-glucose sensor (DEXCOM G7 SENSOR) device Indications:Uncontrolled type 2 diabetes mellitus with hyperglycemia ([facility])1 each by miscellaneous route every 10 days.05/10/2023ctive blood-glucose meter,continuous (DEXCOM G7 MAIN LINE ASSEMBLER) [facility] Indications:Uncontrolled type 2 diabetes mellitus with hyperglycemia ([facility])1 Device by miscellaneous route in the evening.05/10/2023ctive BD ULTRA-FINE MICRO PEN NEEDLE 32 gauge x 1/4 needle 01/18/2024ctive insulin glargine (LANTUS SOLOSTAR U-100 INSULIN) 100 unit/mL (3 mL) insulin pen Indications:Uncontrolled type 2 diabetes mellitus with hyperglycemia ([facility] [place]) Inject 80 Units under the skin nightly. 15 mL 605Active dapagliflozin propanediol (FARXIGA) 10 mg tablet Indications:Type 2 diabetes mellitus with stage 3 chronic kidney disease and hypertension ([facility] [place])take 1 tablet by mouth every morning 90 tablet 5Active dulaglutide (TRULICITY) 1.5 mg/0.5 mL pen injector Indications:Type 2 diabetes mellitus with microalbuminuria, without long-term current use of insulin ([facility] [place])Inject 1.5 mg under the skin every 7 days. 2 mL 5Active Additional Information Patient taking differently: 3 mgsubcutaneous Every 7 days, Reported on 12/30/2024 atorvastatin (LIPITOR) 80 mg tablet Indications:Mixed hyperlipidemiaTAKE 1 TABLET BY MOUTH NIGHTLY 90 tablet 5Active lisinopriL (PRINIVIL,ZESTRIL) 5 mg tablet Indications:Primary hypertensionTake [...] mouth in the morning. 90 capsule 5Active cetirizine (ZyrTEC) 10 mg tablet Indications:Seasonal allergic rhinitis due to pollenTake 1 tablet (10 mg total) by mouth in the morning. 30 tablet 615Active Active Problems ProblemNoted DateDiagnosed DateType 2 diabetes mellitus with microalbuminuria, without long-term current use of hgydkzk0005/05/2023Tongue rwvtwm2903/30/2023urrent moderate episode of major depressive yjbssmxt43/23/2024Hyperparathyroidism 11/18/2022Renal cyst06/21/2022 Overview (06/21/2022): 06/21/22: Probable renal cyst 1st detected 2021 on right on ultrasound. Suggested of this on MRI without contrast. Most recent renal ultrasound also suggests probable renal cyst. Definitive testing with MRI with without contrast will confirm. Post-procedural erectile /18/2023 Overview (06/21/2022): 06/21/22: Erectile dysfunction after winter shunt. Could consider penile injection therapy or penileprosthesis. Acute kidney injury superimposed on CKD/02/2023 Overview (06/15/2022): Last Assessment & Plan: IAN (obstructive sleep apnea)/rimary hyperparathyroidism 05/31/2022 Overview (04/19/2023): S/p parathyroidectomy Mar 2023 at [facility] Multiple vessel coronary artery ytfmifw46/02/2023HHNC (hyperglycemic hyperosmolar nonketotic coma)Morbid ssghbkv3105/23/2022 06/15/2022NSTEMI (non-ST elevated myocardial infarction)/02/2023 Hypertensive fbazve92ersistent pelnfkveppj86/04/2022 Overview (01/18/2022): ACR 1300, UPC 0.9 CKD [...] g in October 2022. Kidney biopsy from [facility] 10/21/22, reviewed. 70 glomeruli assessed 13 were obsolescent. 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 Immunofluorescence negative, no inflammatory changes, no endocapillary or extra capillary proliferation. Pathologist feels the kidneys appears end-stage Acute heart oxxgqta0211/24/2021cute kidney brvetj7011/24/2021 Overview (11/24/2021): Secondary to ischemic ATN from sepsis, septic shock, NSAIDs, Bactrim, vancomycin and contrast. Baseline in 2079 was 0.8 peaked up to 2.1 at [facility] in August 2021. On discharge creatinine was down to 1.3. Urine sediment benign. Work-up for immune complex disease negative, paraprotein disease and vasculitis negative as well. Acute pulmonary edema11/24/2021erebral /21/2022erebral septic emboli 11/24/20211811Nslkgvjeijvzj43/21/2022 Overview (11/24/2021): With increased PTH but negative sestamibi scan PTH 141 calcium had gone up to 11.0, on discharge down to 8.6. Pericardial haxsecai47/21/2022hinovirus dlomlceej83/21/2022epsis due to Streptococcus species without acute organ nrzasjisknl38/21/2022taphylococcus aureus iyrkkcptn11/21/2022ilated wnvjzeuemiynak90/26/2022 Overview (11/24/2021): Ejection fraction 30% compensated CHF Primary oqsqqaijidxx45/26/2022 Overview (11/24/2021): Blood pressures running in the 140-150 systolic range Vpygpcrazh10/11/2022cute respiratory failure with parjhyk3208/29/2021ardiac bgizejhxm02/26/2022riapism, infiggpmdrl87/27/2016 Encounters DateTypeDepartmentCare JjpvYclkevqswvy25/18/2025Refill [facility] [address] [place] [address] Vivien Rooney CMA Seasonal allergic rhinitis due to iovldx0901/02/2025Refill [facility] [address] [place] [address] Princess Grier CMA Anxiety and iajmpumjxt07/29/2025Results Follow-Up [facility] [address] [place] [address] Luis Felipe Buckner, KENNETH-JOSE Trichomonas by PCR, Chlamydia/Gonorrhoeae by PCR, Urine12/30/2024 2:15 PM EDT [facility] [address] [place] [address] Luis Felipe Buckner, KENNETH-JOSE Screen for STD (sexually transmitted disease) (Primary Dx); Type 2 diabetes mellitus with stage 3 chronic kidney disease and hypertension ([facility] [place]); Primary hypertension; Loose stools; Moderate episode of recurrent major depressive disorder ([facility] [place]); Class 3 severe obesity due to excess calories with serious comorbidity and body mass index (BMI) of40.0 to 44.9 in adult ([facility] [place])12/30/20243203Ekjdnt57/26/2025 Xezvbk5012/24/2024Refill [facility] [address] [place] [address] Jacob Cochran, DO Mixed hyperlipidemiafrom Last 3 Months Family History Medical HistoryRelationNameCommentsDiabetesMotherMental [...] friends or relatives?Never01/26/2022How often do you attend christian or hinduism services?Never2Do you belong to any clubs or organizations such as christian groups, unions, fraternal or athletic groups, or school groups?No 01/26/2022How often do you attend meetings of the clubs or organizations you belong to?Never01/26/2022re you , , , , never , or living with a partner?Living with lvvyxsl4401/26/2022UDIT-CAnswerDate RecordedQ1: How often do you have a [...] medical care, and heating?Not very hard06/10/2024PHQ-2AnswerDate RecordedTotal Ytwxs941[facility] [place] [facility] - Occupational Stress QuestionnaireAnswerDate RecordedDo you feel stress - tense, restless, nervous, or anxious, or unable to sleep at night because yourmind is troubled all the time - these days?To some iuiynd8901/26/2022Exercise Vital Sign AnswerDate RecordedOn average, how many [...] of a household?No06/10/2024hildcareAnswerDate RecordedDo problems getting child therapist make it difficult for you to work [...] have received?Associate degree: occupational, technical, or vocational uarrmfd5801/26/2022ex and Gender InformationValueDate RecordedSex Assigned at BirthNot on fileLegal SexMale 10/09/2014 12:04 PM EDTGender IdentityNot on fileSexual OrientationNot on file Last Filed Vital Signs Vital SignReadingTime TakenCommentsBlood Oufivqdj829/8212/30/2024 2:25 PM EDT Foplx875512/30/2024 2:25 PM IIHIymeeksckmx62.1 ??C (97 ??F)12/30/2024 2:25 PM EDT Respiratory Zioe2888 2:25 PM EDTOxygen Letdqbicxo85%12/30/2024 2:25 PM EDTInhaled Oxygen Concentration--Dpgufv010.6 kg (263 lb 9.6 oz)12/30/2024 2:25 PM DNZNersfj187.1 cm (5' 5 )12/30/2024 2:25 PM EDTBody Mass Index43.8712/30/2024 2:25 PM EDT Plan of Treatment DateTypeDepartmentCare Team (Latest Contact Info)Rtpjwiftood04/27/2026 4:00 PM EDTOffice Visit [facility] [address] [place] [address] Luis Felipe Buckner, [place]GS[place] HAND-ANGLE BENDER [address] [place] [address] Health MaintenanceDue DateLast DoneCommentsDiabetic Ophthalmology Exam1984 DTaP,Tdap and Td Vaccines (1 - Tdap)06/29/2003Influenza Giriwwj3611/04/2024 01/26/2024iabetic Foot Exam/, 09/12/2022dult BMI Follow Up PlanStatin Use: Yccknswrvfescl54/21/202610/Statin Use: Dwlefcua78/dult BMI Xcplxujgl75/ Depression Hvcgmxijs47/Tobacco Wpzwyqwxz77 Medical Devices Not on file Procedures Procedure NamePriorityDate/TimeAssociated DiagnosisCommentsCHLAMYDIA/GONORRHOEAE BY PCR, EUYOQLyfpnhe06/27/2025 2:56 PM EDT Screen for STD (sexually transmitted disease) TRICHOMONAS BY BHSObaukoc64/27/2025 2:56 PM EDT Screen for STD (sexually transmitted disease) from Last 3 Months Results * Chlamydia/Gonorrhoeae by PCR, Urine (12/30/2024 2:56 PM EDT)ComponentValueRef RangeTest MethodAnalysis TimePerformed AtPathologist SignatureGONORRHOEAE PCR, MLrtlioovYqqgvxyi36/28/2025 11:44 AM [facility] Comment:Neisseria gonorrhoeae not detected by nucleic acid amplification. This does not exclude the possibility of infection because results are dependent on adequate specimen collection.CHLAMYDIA PCR, BMilfwigwDzbmvjhg75/28/2025 11:44 AM [facility]:Chlamydia trachomatis not detected by nucleic acid amplification. This does not exclude the possibility of infection because results are dependent on adequate specimen collection. Specimen (Source)Anatomical Location / LateralityCollection Method / Volume Collection TimeReceived TimeUrineUrine / Efskxtx5712/30/2024 2:56 PM EDT 12/30/2024 2:56 PM EDT Narrative Authorizing ProviderResult TypeResult StatusLuis Felipe Buckner APRN-CNPMICROBIOLOGY - GENERAL ORDERABLESFinal ResultPerforming OrganizationAddressCity/State/ZIP CodePhone Number [facility] [address] [place] [address], * Trichomonas by PCR (12/30/2024 2:56 PM EDT)ComponentValueRef RangeTest Method Analysis TimePerformed AtPathologist SignatureTRICHOMONAS PCRNot DetectedNot Pxyfglrc72/27/2025 10:26 PM EDTTOLEBRODSTONE MEMORIAL HOSPITAL LABORATORYComment: Trichomonas vaginalis not detected. Assay methodology is nucleic acid amplification by real-time PCR for detection of Trichomonas vaginalis DNA performed on [employer] System. Specimen (Source)Anatomical Location / LateralityCollection Method / Volume Collection TimeReceived TimeUrineUrine / Yhooszh1112/30/2024 2:56 PM EDT1 2:56 PM EDT Narrative Authorizing ProviderResult TypeResult StatusLuis Felipe Buckner APRN-CNPMICROBIOLOGY - GENERAL ORDERABLESFinal ResultPerforming OrganizationAddressCity/State/ZIP CodePhone Number [facility] [address] [place] [address], from Last 3 Months Insurance Care Teams Team MemberRelationshipSpecialtyStart DateEnd Date Luis Felipe Buckner APRN-ANGLE BENDER [address] [place] [facility] [place] [address] (work) PCP - GeneralInternal Oyizjgge24/27/25
--- OUTSIDE RECORDS SUMMARY | 2025-02-26 08:07 | XMS_ITS | Clinical Summary ---
Author Organization [facility] Address [address] [place] [address] Care Team Providers Care Agent Name Role Phone Munira Das MD Primary Care Provider [phone] Allergies Active AllergyReactionsCriticalityNoted DateCommentsBupropion BudQmi2801/26/2022 Increased irritability and insomnia Food Allergy NntwqvbOdi18/14/2022 Watermelon, cantaloupe, honeydew Melon08/28/2021 Other reaction(s): Swelling of Lip/Tongue/Throat UvaykiCni39/25/2022 Other reaction(s): Swelling of Lip/Tongue/Throat Medications MedicationSigDispense QuantityRefillsLast FilledStart DateEnd DateStatus carvedilol (Coreg) 25 mg tablet Take 25 mg by mouth with breakfast and with evening meal./ Active fluticasone (Veramyst) 27.5 mcg/actuation nasal spray 2 sprays if needed.Active lisinopril 5 mg tablet Take 5 mg by mouth in the morning.12/15/2021ctive aspirin 81 mg EC tablet Take 81 mg by mouth in the morning.06/30/2022ctive clopidogrel (Plavix) 75 mg tablet Take 75 mg by mouth in the morning.06/07/2022ctive Farxiga 10 mg Take 10 mg by mouth in the morning.07/11/2022ctive metoprolol tartrate (Lopressor) 25 mg tablet Take 1 tablet by mouth in the morning and at bedtime.06/06/2022ctive amiodarone (Pacerone) 200 mg tablet Take 200 mg by mouth at bedtime.10/28/2022ctive ARIPiprazole (Abilify) 5 mg tablet Take 5 mg by mouth in the morning.09/12/2022ctive cetirizine (ZyrTEC) 10 mg tablet Take 10 mg by mouth at bedtime.07/12/2022ctive FLUoxetine (PROzac) 20 mg capsule Take 20 mg by mouth in the morning.09/12/2022ctive Dexcom G4 chevak vice president global advertising sales (Dexcom G7 Pump Technician) misc 1 Device in the morning.05/10/2023ctive blood-glucose sensor (Dexcom G7 Sensor) device 1 each.05/10/2023ctive calcium carbonate (Tums) 200 mg calcium (500 mg) chewable tablet take and chew 2 tablets by mouth twice a day04/14/2023ctive Vraylar 1.5 mg capsule Take 1.5 mg by mouth in the morning.05/12/2023ctive fluticasone (Flonase) 50 mcg/actuation nasal spray Administer 2 sprays into each nostril in the morning.Active TRUEplus Lancets 33 gauge [facility] [place] 1 LANCET to TEST BLOOD SUGAR every chfffpd6005/05/2023ctive loratadine-pseudoephedrine (Claritin-D 24-hour) 10-240 mg 24 hr tablet 1 tablet.08/28/2021ctive metoprolol succinate XL (Toprol-XL) 25 mg 24 hr tablet Take 25 mg by mouth in the morning.Active Droplet Pen Needle 31 gauge x 1/4 needle use 1 PEN NEEDLE to inject MEDICATION subcutaneously as xvrcuxqz19/04/2024ctive atorvastatin (Lipitor) 80 mg tablet Take 80 mg by mouth at bedtime.03/08/2023ctive Lantus Solostar U-100 Insulin 100 unit/mL (3 mL) injection pen Indications:type 2 diabetes mellitusInject 55 Units under the skin at bedtime. 02/21/2024ctive dulaglutide (Trulicity) 4.5 mg/0.5 mL pen injector Indications:Type 2 diabetes mellitus with hyperglycemia, with long-term current use of insulin (CMS/HCC)Inject 4.5 mg under the skin every 7 (seven) days. 2 mL 5Active dulaglutide (Trulicity) 3 mg/0.5 mL pen injector Indications:Type 2 diabetes mellitus with hyperglycemia, with long-term current use of insulin (CMS/HCC)Inject 3 mg under the skin every 7 (seven) days. Do not start before December 16, 2024. 2 mL /20240307/01/2025Discontinued(Dose adjustment) Active Problems ProblemNoted DateDiagnosed DateType 2 diabetes mellitus with microalbuminuria, without long-term current use of lbzumuq33Hyperlipidemia Tongue zpklxq59urrent moderate episode of major depressive cdmqgohy467290Yrjxtlcxwemggqabope85/15/2023H/O heart artery stentost-procedural erectile dysfunction Overview (03/29/2023): 06/21/22: Erectile dysfunction after winter shunt. Could consider penile injection therapy or penileprosthesis. Acute kidney injury superimposed on CKD Overview (03/29/2023): Last Assessment & Plan: Last Assessment & Plan: History of primary tsukcreamppdjjurkhh21/28/202301/24/2024History of type 2 diabetes eqensxbv30OSA (obstructive sleep apnea)05/31/2022 03/29/2023Multiple vessel coronary artery rfxemco84llergic lqhxualx44nxietyHHNC (hyperglycemic hyperosmolar nonketotic coma)Morbid uzepbpy2905/23/2022 03/29/2023NSTEMI (non-ST elevated myocardial infarction) Cerebrovascular accident (CVA)03/25/20221412Ybfgvdce42/20/0465Lrrlf21/20/2023leural /20/2023CKD (chronic kidney disease), stage III12/07/2021 Overview (03/25/2022): 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 Baseline in 2079 was 0.8 peaked up to 2.1 at [facility] in August 2021. On discharge creatinine was down to 1.3. Urine sediment benign. Work-up for immune complex disease negative, paraprotein disease and vasculitis negative as well. Secondary to ischemic ATN from sepsis, septic shock, NSAIDs, Bactrim, vancomycin and contrast. Baseline in 2079 was 0.8 peaked up to 2.1 at [facility] in August 2021. On discharge creatinine was down to 1.3. Urine sediment benign. Work-up for immune complex disease negative, paraprotein disease and vasculitis negative as well. Acute pulmonary edema2Cerebral kisontpl94/21/2022Cerebral septic emboli 11/24/20211890Vsaxiloipfuyk40/21/2022 Overview (03/25/2022): With increased PTH but negative sestamibi scan PTH 141 calcium had gone up to 11.0, on discharge down to 8.6. With increased PTH but negative sestamibi scan PTH 141 calcium had gone up to 11.0, on discharge down to 8.6. Pericardial uhepyeqv15/21/2022Rhinovirus voepchgtf30/21/2022epsis due to Streptococcus species without acute organ lxwkmfjffus91/21/2022taphylococcus aureus qetkcpnwf43/21/2022rimary hfanbozwfkrk57/26/2022 Overview (03/25/2022): Blood pressures running in the 140-150 systolic range Blood pressures running in the 140-150 systolic range Vjziamgbvt02/11/2022cute respiratory failure with nmzfjqq3708/29/2021ardiac oehcwfaym45/26/2022riapism, fqewcgpsxoj42/27/2016 Encounters DateTypeDepartmentCare YlirBnmpixulkqn19/11/2025 10:40 AM ESTFollow-Up [facility] at [address] [phone] Jacob Crane Type 2 diabetes mellitus with hyperglycemia, with long-term current use of insulin ([facility]) (Primary Dx); Dyslipidemia; Hypertension, unspecified type12/13/2024Orders Only [facility] at [address] [phone] Jacob Crane Type 2 diabetes mellitus with hyperglycemia, with long-term current use of insulin ([facility])12/11/2024Telephone [facility] at [address] [phone] Jacob Crane Med Refillfrom Last 3 Months Family History Medical HistoryRelationNameCommentsDiabetesMotherMental illnessMotherRelation NameStatusCommentsMotherAlive Social History Tobacco UseTypesPacks/DayYears UsedDateSmoking Tobacco: FormerCigarettes0.314 Smokeless Tobacco: Never Tobacco Cessation:Counseling Given: Not Answered Alcohol UseStandard Drinks/WeekCommentsYes0 (1 standard drink = 0.6 oz pure alcohol)RAREHumiliation, Afraid, Rape, and Kick questionnaireAnswerDate Recorded Within the last year, have you been afraid of your partner or ex-partner?No 07/04/2023Emotionally AbusedNot on file07/04/2023hysically AbusedNot on file 07/04/2023Sexually AbusedNot on file07/04/2023Overall Financial Resource Strain (CARDIA)AnswerDate RecordedHow hard is it for you to pay for the very basics like food, housing, medical care, and heating?Not hard at all02/20/2023HQ-2 AnswerDate RecordedPatient Health Questionnaire-2 Jcoem089UT Safety & EnvironmentAnswerDate RecordedWithin the last year, have you been afraid of your partner or ex-partner?No07/04/2023Emotionally AbusedNot on file07/04/2023 Physically AbusedNot on file07/04/2023Sexually AbusedNot on file07/04/2023In the past year have you been physically or sexually abused?Unrecognized value 07/04/2023TransportationAnswerDate RecordedIn the past 12 months, has lack of transportation kept you from medical appointments or from getting medications?No 02/20/2023Lack of Transportation (Non-Medical)Not on file02/20/2023Housing Stability Vital SignAnswerDate RecordedUnable to Pay for Housing in the Last YearNot on file02/20/2023Number of Places Lived in the Last YearNot on file 02/20/2023In the last 12 months, was there a time when you did not have a steady place to sleep or slept in ashelter (including now)?No02/20/2023Hunger Vital SignAnswerDate RecordedWithin the past 12 months, you worried that your food would run out before you got the money to buymore.Never true02/20/2023Ran Out of Food in the Last YearNot on file02/20/2023Sex and Gender InformationValueDate RecordedSex Assigned at MmiubQvhx76/11/2025 10:14 AM EDTLegal OluIbjm4309/15/2021 8:42 AM EDTGender VguleysuYnqi50/11/2025 10:14 AM EDTSexual Orientation Heterosexual or Ngvwddrm26/11/2025 10:14 AM EDT Last Filed Vital Signs Vital SignReadingTime TakenCommentsBlood Emfzugkf065/7202/13/2025 10:45 AM EST Dzbln476302/13/2025 10:45 AM DDEYeyhunpyifk32.7 ??C (98.1 ??F)07/04/2023 2:38 PM EDTRespiratory Hqja611204/26/2022 4:11 PM ESTOxygen Rxrvpopkli98%02/13/2025 10:45 AM ESTInhaled Oxygen Concentration--Xyxufn692 kg (255 lb)02/13/2025 10:45 AM EST Gtuiso828.6 cm (5' 4 )03/20/2024 10:56 AM ESTBody Mass Index43.77003/20/2024 10:56 AM EST Plan of Treatment DateTypeDepartmentCare Team (Latest Contact Info)Tftqdsjtpxp34/10/2026 10:00 AM EDTFollow-Up [facility] at [facility] [address] [place] [phone] Jacob Crane [address] [facility] [address] [place] [address] Health MaintenanceDue DateLast DoneCommentsDiabetes: Retinopathy Screening 1994Depression Zkphrmvfb46/25/1997Varicella Vaccines (1 of 2 - 13+ 2-dose series)1997Hepatitis B Vaccines (1 of 3 - 19+ 3-dose series)06/29/2003 Pneumococcal Vaccine: Pediatrics (0 to 5 Years) and At-Risk Patients (6 to 64 Years) (1 of 2 - PCV)06/29/2003Adult Vuitdqm5806/28/2006HPV Vaccines (1 - 3-dose SCDM series)06/29/2011Diabetes: Urine Protein Djomfnkjr41/08/2022, 03/29/2022, 2COVID-19 Vaccine ( - 2024- season)2024Diabetes: Hemoglobin A1C612/01/2025, 11/14/2024Zoster Vaccines (1 of 2)2034 Influenza FqvxoffHnnubgfid15/10/2025, 01/26/2024HIB VaccinesAged OutNo longer eligible based on patient's age to complete this topicIPV VaccinesAged OutNo longer eligible based on patient's age to complete this topicMeningococcal B VaccineAged OutNo longer eligible based on patient's age to complete this topic Meningococcal VaccineAged OutNo longer eligible based on patient's age to complete this topicRotavirus VaccinesAged OutNo longer eligible based on patient's age to complete this topic Procedures Procedure NamePriorityDate/TimeAssociated DiagnosisCommentsPOCT GLYCOSYLATED HEMOGLOBIN (HGB A1C)Twgtisj6202/13/2025 11:06 AM EST Type 2 diabetes mellitus with hyperglycemia, with long-term current use of insulin ([facility]) from Last 3 Months Results * (ABNORMAL) POCT glycosylated hemoglobin (Hb A1C) (02/13/2025 11:06 AM EST) ComponentValueRef RangeTest MethodAnalysis TimePerformed AtPathologist SignatureHemoglobin A1C6.6SOURCE:BloodLot Number#[id number] DATE#10/30Specimen (Source)Anatomical Location / LateralityCollection Method / VolumeCollection TimeReceived TimeBloodVenous blood specimen / Hykquza2602/13/2025 11:06 AM EST Narrative Authorizing ProviderResult TypeResult StatusJoCorcoran District Hospital. JunPOINT OF CARE TEST ENTER/EDIT ORDERABLESEdited Result - Final from Last 3 Months Insurance Advance Directives * Full Code (Latest Code Status on File) Date ActivatedDate IllknqryjmsClyotnko19/18/2023 8:44 AM02/23/2023 8:38 PM Care Teams Team MemberRelationshipSpecialtyStart DateEnd Date Munira Das MD PCP - GeneralFamily Cqpdudpf73/14/22
--- OUTSIDE RECORDS SUMMARY | 2025-02-26 08:07 | XMS_ITS | Patient Health Record ---
Author Organization [facility] Address [address] [place], [place] [id number] Care Team Providers Care Salon Stylist Name Role Phone Stephanie [place] Unavailable [phone] Allergies Allergen (clinical drug ingredient) Drug/Non Drug Allergy documented on EMR Reaction Allergy Type Onset Date Status WellbutrinUnknownDrug AllergyActive Reason For Referral No Information Medications Medication SIG (Take, Route, Frequency, Duration) Notes Start Date End Date Status Farxiga 10 MG Tablet 1 tablet Orally Once a day ActiveClopidogrel Bisulfate 75 MG Tablet1 tablet Orally Once a dayActiveAspirin 81 81 MG Tablet Chewable1 tablet Orally Once a dayActiveDex ComboActive FluoxetineActiveMetoprolol Tartrate 25 MG Tablet1 tablet with food Orally Twice a dayActiveVraylar 1.5 MG Capsule1 capsule Orally Once a dayActiveLisinopril 5 MG Tablet2 tablets Orally Once a dayActiveTrulicity 3 MG/0.5ML Solution Auto-injectoras directed SubcutaneousActiveAtorvastatin Calcium 80 MG Tablet1 tablet Orally Once a dayActiveLantus SoloStar 100 UNIT/ML Solution Pen-injector as directed SubcutaneousActiveCetirizine HCl 10 MG Tablet1 tablet Orally Once a dayActive Social History Sex Assigned At : Social History Observation Description Sex Assigned At Male Social History Tobacco Use:Social InfoQuestionAnswerNotesTobacco Control (Standard)Additional Findings: Tobacco usere-cigarette Problems Problem Type SNOMED Code ICD Code Onset Dates Problem Status W/U Status Risk Notes Problem Tobacco user (893069165) Cigaret te nicotine dependence without complication (F17.210) ActiveconfirmedProblemBody mass index 40+ - morbidly obese (105172405)BMI 40.0- 44.9, adult (Z68.41)Activeconfirmed Vital Signs Heart Rate 87 /min 01/22/2025 Height-cm162.56 cm01/22/2025lood pressure iydbylrha61 mm Hg01/22/2025Weight-kg 106.14 kg01/22/20259610Moixto58 in01/22/2025lood pressure viaeumuo039 mm Hg 01/22/20252284Wnkjjn259 lbs103/24/2024BMI40.16 kg/m201/22/2025 Encounters Encounter Location Date Provider Diagnosis [facility] [address] [place], [place] [phone] 01/08/2025 Stephanie [place] BMI 40.0-44.9, alejandro lt Z68.41 ; Encounter for screening for dental disorders Z13.84 ; Necrosis of pulp K04.1 ; Dental caries into dentine K02.62 ; Encounter for dental examination and cleaning with abnormal findings Z01.21 and Caries of dentin K02.62 [facility] [address] [place] [phone] 01/14/2025 [facility] BMI 40.0-44.9, alejandro lt Z68.41 ; Dental caries into dentine K02.62 ; Encounter for dental examination and cleaning with abnormal findings Z01.21 ; Cigarette nicotine dependence without complication F17.210 ; Dietary counseling Z71.3 and Exercise counseling Z71.82 [facility] [address] [place] [phone] 01/22/2025 Stephanie [place] Caries of dentin K 02.62 Assessments Encounter Date Diagnosis (ICD Code) Assessment Notes Treatment Notes Treatment Clinical Notes Section Notes 01/08/2025 BMI 40.0-44.9, adult (ICD-10 - Z 68.41) 01/14/2025MI 40.0-44.9, adult (ICD-10 - Z68.41)01/22/2025aries of dentin (ICD- 10 - K02.62)01/14/2025Dental caries into dentine (ICD-10 - K02.62)01/08/2025 Encounter for screening for dental disorders (ICD-10 - Z13.84)01/14/2025 Encounter for dental examination and cleaning with abnormal findings (ICD-10 - Z01.21)01/08/2025Necrosis of pulp (ICD-10 - K04.1)01/08/2025Dental caries into dentine (ICD-10 - K02.62)01/14/2025igarette nicotine dependence without complication (ICD-10 - F17.210)Patient provided with [phone] phone line. 01/08/2025Encounter for dental examination and cleaning with abnormal findings (ICD-10 - Z01.21)01/14/2025Dietary counseling (ICD-10 - Z71.3)01/08/2025aries of dentin (ICD-10 - K02.62)01/14/2025Exercise counseling (ICD-10 - Z71.82) Plan Of Treatment Next Appt Details Provider Name:Stephaniejesusita Owensveda olivera, 04/02/2025 08:45:00 AM, [address] [place] [address], [phone], Provider Name:Stephaniejesusita Owensveda olivera, 04/09/2025 03:15:00 PM, [address] [place] [address], [phone], Insurance Providers Payer Name Payer Address Payer Phone Subscriber Number Group Number Insured Name Patient Relationship to Insured Coverage Start Date Coverage End Date Jaz Ornelas [facility] [address] [place] [phone] [id number] Cydney Ghotraf - patient is the [id number] 2024DMedicaid C after HumanaDentaquestPO [address] [place], [place] [id number], Timothy Self - patient is the insured Medical (General) History Medical History History ICD Code Diabetes Heart Attack and Mini Stroke (2021)Open Heart Surgery (2021)Quadruple Bypass (2021)
--- OUTSIDE RECORDS SUMMARY | 2025-02-26 08:07 | XMS_ITS | Clinical Summary ---
Author Organization [facility] Address [address] [place] [address] Care Team Providers Care Motorcycle Mechanic Apprentice Name Role Phone Unavailable Primary Care Provider Unavailabl e Allergies No known active allergies Medications MedicationSigDispense QuantityRefillsLast FilledStart DateEnd DateStatus amiodarone (Pacerone) 200 MG tablet Take 1 tablet by mouth in the morning.Active ARIPiprazole (Abilify) 5 MG tablet Take 5 mg by mouth in the morning.Active aspirin 81 MG EC tablet Take 81 mg by mouth in the morning.Active atorvastatin (Lipitor) 80 MG tablet Take 80 mg by mouth in the morning.Active cetirizine (ZyrTEC) 10 MG chewable tablet Chew DailyActive cinacalcet (Sensipar) 30 MG tablet Take 30 mg by mouth in the morning. Take with food or shortly afer a meal. Swallow tablet whole; donot break or divide..Active clopidogrel (Plavix) 75 MG tablet Take 75 mg by mouth in the morning.Active dapagliflozin (Farxiga) 10 MG Take 10 mg by mouth in the morning.Active dulaglutide (Trulicity) 1.5 MG/0.5ML solution pen-injector Inject 1.5 mg under the skin 1 (one) time per weekActive FLUoxetine (PROzac) 20 MG capsule Take 20 mg by mouth in the morning.Active fluticasone (Flonase) 50 MCG/ACT nasal spray Administer 2 sprays into each nostril in the morning. Shake gently. Before first use, prime pump. After use, clean tip and replace cap..Active metoprolol succinate XL (Toprol-XL) 25 MG 24 hr tablet Take 25 mg by mouth in the morning. Do not crush or chew..Active Calcium Carb-Cholecalciferol (Oyster Shell Calcium w/D) 500-5 MG-MCG tablet Take 2 tablets by mouth in the morning and 2 tablets in the evening and 2 tablets before bedtime.02/23/2023ctive carvedilol (Coreg) 25 MG tablet Take 25 mg by mouth in the morning and 25 mg in the evening. Take with meals. 05/10/2022ctive RA Vitamin D-3 125 MCG (5000 UT) capsule Take 1 capsule by mouth in the morning.06/15/2022ctive lisinopril 2.5 MG tablet Take 2.5 mg by mouth in the morning.12/06/2022ctive Active Problems ProblemNoted DateDiagnosed ZqrrFhfrnaprqylj64/29/0424Mmtyprwurbqdlv63/29/2024 Seasonal allergic lipinkov92/29/2024Tongue ragnul9603/30/2023VA (cerebral vascular accident)03/30/2023Myocardial ruvyxggpcb42/25/2024 Family History Medical HistoryRelationNameCommentsDiabetesMotherRelationNameStatusComments Mother Social History Tobacco UseTypesPacks/DayYears UsedDateSmoking Tobacco: FormerCigarettesQuit: mokeless Tobacco: FormerQuit: 2022 Tobacco Cessation:Counseling Given: Not Answered Alcohol UseStandard Drinks/WeekCommentsNot Currently0 (1 standard drink = 0.6 oz pure alcohol)Sex and Gender InformationValueDate RecordedSex Assigned at Not on fileLegal MzlSutp6803/29/2023 3:45 PM ESTGender IdentityNot on fileSexual OrientationNot on file Last Filed Vital Signs Vital SignReadingTime TakenCommentsBlood Zxwexhlk570/9404/03/2023 8:10 AM EST Pulse--Temperature--Respiratory Rate--Oxygen Saturation--Inhaled Oxygen Concentration--Unatwb988 kg (302 lb)04/03/2023 8:10 AM LJUFeovue500.6 cm (5' 4 ) 04/03/2023 8:10 AM ESTBody Mass Index51.8404/03/2023 8:10 AM EST Plan of Treatment Not on file Medical Devices ImplantedTypeAreaManufacturerDevice IdentifierShelf Expiration DateModel / Serial / LotCoronary Drug Eluting Stent-07/25/2022 Implanted:Qty: 2 on 07/25/2022oronary Drug Eluting StentHeart Insurance
--- OUTSIDE RECORDS SUMMARY | 2025-02-26 08:07 | XMS_ITS | Clinical Summary ---
Author Organization [facility] Address [address] [id number] Care Team Providers Care Offshore Wind Operations Manager Name Role Phone Phys, Self-Refer Or No Pcp/Referring Primary Car e Provider Unavailable Social History Tobacco UseTypesPacks/DayYears UsedDateSmoking Tobacco: Never AssessedSex and Gender InformationValueDate RecordedSex Assigned at BirthNot on fileLegal Sex Male11/09/2022 9:49 AM EDTGender IdentityNot on fileSexual OrientationNot on file Plan of Treatment Health MaintenanceDue DateLast DoneCommentsHepatitis C Qmyaoiwjy12/25/1985 DTaP,Tdap,and Td Vaccines (1 - Tdap)06/29/2003Hepatitis B Vaccine ages 19 years and older (1 of 3 - 19+ 3-dose series)06/29/2003COVID-19 Vaccine (1 - 2024- season)2024Influenza Vaccine (#1)2024Respiratory Syncytial Virus (RSV) or ages 60 years and older (1 - 1-dose 75+ series)06/29/2059 Pneumococcal CombinedAged OutNo longer eligible based on patient's age to complete this topicRespiratory Syncytial Virus (RSV) ages 0 thru 19 monthsAged OutNo longer eligible based on patient's age to complete this topic Insurance Care Teams Team MemberRelationshipSpecialtyStart DateEnd Date Phys, Self-Refer Or No Pcp/Referring PCP - Hgpuzml95/11/24
--- NOTE | 2025-02-26 08:19 | CT_ITS ---
The [address] [address] Patient Name: ELIAS WALKER MRN: [id number] date: 1985 Sex: M Assigned Patient Location: LAB Current Patient Location: LAB Accession/Order Number: [id number] Exam Date: 02/26/2025 08:45 Report Date: 02/26/2025 09:42 At the request of: MADISON LAU NP Procedure: CT urogram CT UROGRAM WITHOUT AND WITH INTRAVENOUS CONTRAST COMPARISON: None CLINICAL DATA: Gross hematuria. Spiral images were obtained through the abdomen pelvis before and after intravenous administration of 100 mL of Visipaque. This CT exam was performed using one or more following dose reduction techniques: Automated exposure control, adjustment of the mA and/or kV according to patient size, or use of iterative reconstruction technique. Limited cuts through the lung bases show no contributory findings. The kidneys are within normal limits for size, position and contour. On the unenhanced images, a 5 mm stone is seen at the lower pole of the left kidney. No renal stones are seen on the right. No ureteral or bladder calculi are identified. There is a 12 mm hyperdense, somewhat nodular area within the cortex at the superior pole of the left kidney. This might be a hemorrhagic cyst. There are also hypodense nodules bilaterally, predominantly on the right which following contrast administration do not enhance suggesting cysts. The largest is exophytic from the lower pole on the right measuring 3.3 cm in size. The postcontrast renal nephrograms are symmetric. No hydronephrosis is identified. The ureters are segmentally opacified and are normal in course and caliber. No urinary bladder abnormalities are noted. No calcified gallstones are identified. No intrahepatic masses are seen. The spleen, pancreas and adrenal glands show no acute findings. There is minor plaque at the aorta and right common iliac artery. There are small mesenteric lymph nodes. No ascites is seen. The small bowel loops are not distended though there are some loops which contain fluid. There is also fluid and food debris within the stomach. Mild stool is present along the colon. There is levoscoliotic curvature as well as degenerative changes at the spine. Images through the pelvis show no dilated small bowel. There is no appendiceal inflammation. There is a small amount of distal colonic stool. No diverticular disease is seen. The prostate is not enlarged and it contains calcification. There is no pelvic ascites. CT/CT urogram IMPRESSION: LEFT NEPHROLITHIASIS. RENAL CYSTS INCLUDING A POSSIBLE SMALL HEMORRHAGIC CYST AT THE UPPER POLE OF THE LEFT. NO OBSTRUCTIVE UROPATHY. NO URINARY BLADDER ABNORMALITIES. NO ACUTE FINDINGS. Impression dictated by: Joanna Sheppard M.D. 02/26/2025 9:42 AM Dictation Location: [place] [address] Electronically authenticated by: [id number] Y Date: 02/26/2025 09:42
[2025-02-26 08:30] LABS: Estimated GFR (African America 38 (>=60 mL/min/1.73m^2); Estimated GFR (Non-African Ame 31 (>=60 mL/min/1.73m^2)
== END 2025-02-26 08:05 | disposition home or self-care (01) ==
LOC: LAB 08:04
PROVIDERS: Pathology Anatomic Pathology & Clinical Pathology; PCP Nurse Practitioner Family; Visit Provider Nurse Practitioner
DX: Z01.818 Encounter for other preprocedural examination (principal); R31.0 Gross hematuria; N20.0 Calculus of kidney; N28.1 Cyst of kidney, acquired
CPT/HCPCS: 36415; 74178; 82565; Q9966

== ENCOUNTER 2025-03-01 17:14 | Emergency (ER) | payer MEDICAID, SELFPAY ==
--- OUTSIDE RECORDS SUMMARY | 2025-02-19 23:59 | XMS_ITS | Continuity of Care Document ---
Author Organization [facility] Address [address] [place] [address] Care Team Providers Care Fiber Artist Name Role Phone SHENG ORTEGA Primary Care Physician [phone] Encounter FT_AMBFIN [id number] Date(s): 02/19/25 - 02/19/25 [facility] [address], [place] [address] Encounter Diagnosis History of kidney stones(Discharge Diagnosis) - 02/19/25 Gross hematuria(Discharge Diagnosis) - 02/19/25 Antiplatelet or antithrombotic long-term use(Discharge Diagnosis) - 02/19/25 Vapes nicotine containing substance(Discharge Diagnosis) - 02/19/25 Discharge Disposition: Home (Routine DC) Attending Physician: Sirisha Garrison MD Encounter Type: Clinic Allergies, Adverse Reactions, Alerts SubstanceCriticalitySeverityReactionReaction SeverityStatusbuPROPionAgitation Active Functional Status 02/19/25 Symptomatic After Exposure to ContagionNoSymptomatic After Travel High-Risk Area NoDroplet, Contact Isolation VerificationN/AAirborne,Contact Isolation VerificationN/A Medications Aspirin Low Dose 81 mg oral enteric coated tablet 81 mg = 1 tab(s) Start Date: 01/31/25 Status: Ordered Medication Dispense Status: Completed Total Allowed Fills: 1 Fills Dispensed: 0 atorvastatin 80 mg Tab 80 mg = 1 tab(s) Start Date: 01/31/25 Status: Ordered Medication Dispense Status: Completed Total Allowed Fills: 1 Fills Dispensed: 0 cetirizine 10 mg Tab 10 mg = 1 tab(s) Start Date: 01/31/25 Status: Ordered Medication Dispense Status: Completed Total Allowed Fills: 1 Fills Dispensed: 0 clopidogrel 75 mg Tab 75 mg = 1 tab(s) Start Date: 01/31/25 Status: Ordered Medication Dispense Status: Completed Total Allowed Fills: 1 Fills Dispensed: 0 dapagliflozin 10 mg oral tablet 10 mg = 1 tab(s), Oral, Daily Start Date: 01/31/25 Status: Ordered Medication Dispense Status: Completed Total Allowed Fills: 1 Fills Dispensed: 0 FLUoxetine 20 mg Cap 20 mg = 1 cap(s) Start Date: 01/31/25 Status: Ordered Medication Dispense Status: Completed Total Allowed Fills: 1 Fills Dispensed: 0 fluticasone propionate 50 mcg, Inhalation Start Date: 01/31/25 Status: Ordered Medication Dispense Status: Completed Total Allowed Fills: 1 Fills Dispensed: 0 Lantus Solostar Pen 100 units/mL subcutaneous solution Start Date: 01/31/25 Status: Ordered Medication Dispense Status: Completed Total Allowed Fills: 1 Fills Dispensed: 0 lisinopril 5 mg Tab 5 mg = 1 tab(s) Start Date: 01/31/25 Status: Ordered Medication Dispense Status: Completed Total Allowed Fills: 1 Fills Dispensed: 0 Lopressor 25 mg oral tablet 25 mg = 1 tab(s), BID Start Date: 01/31/25 Status: Ordered Medication Dispense Status: Completed Total Allowed Fills: 1 Fills Dispensed: 0 Trulicity Pen 3 mg/0.5 mL subcutaneous solution 3 mg Start Date: 01/31/25 Status: Ordered Medication Dispense Status: Completed Total Allowed Fills: 1 Fills Dispensed: 0 Vraylar 1.5 mg oral capsule 1.5 mg = 1 cap(s) Start Date: 01/31/25 Status: Ordered Medication Dispense Status: Completed Total Allowed Fills: 1 Fills Dispensed: 0 Problem List ConditionConfirmationCourseEffective DatesStatusHealth StatusInformantCVA (cerebrovascular accident)ConfirmedActiveGross hematuriaConfirmedActiveHistory of kidney stonesConfirmedActiveHyperlipidemiaConfirmedActiveHypertension ConfirmedActiveAntiplatelet or antithrombotic long-term useConfirmedActive Myocardial infarctionConfirmedActiveVapes nicotine containing substanceConfirmed ActiveType 2 diabetes mellitusConfirmed05/25/22Active Procedures ProcedureDateRelated DiagnosisBody ZqzeWvxaiyYkbihkfnad76/17/25CompletedCoronary artery bypass graftingCompletedHistory of partial thyroidectomyCompletedPartial parathyroidectomy and parathyroid tissue transpositionCompletedSurgical biopsy of kidneyCompleted Social History Social History TypeResponseTobaccoVape Tobacco Use:. SexMaleSex RepresentationMale (finding) Hospital Discharge Instructions Patient Education 02/19/2025 13:13:22 Cystoscopy Cystoscopy Cystoscopy is a procedure that is used to help diagnose and sometimes treat conditions that affect the lower urinary tract. The lower urinary tract includes the bladder and the urethra. The urethra is the tube that drains urine from the bladder. Cystoscopy is done using a thin, tube-shaped instrument with a light and camera at the end (cystoscope). The cystoscope may be hard or flexible, depending on the goal of the procedure. The cystoscope is inserted through the urethra, into the bladder. Cystoscopy may be recommended if you have: ??? Urinary tract infections that keep coming back. ??? Blood in the urine (hematuria). ??? An inability to control when you urinate (urinary incontinence) or an overactive bladder. ??? Unusual cells found in a urine sample. ??? A blockage in the urethra, such as a urinary stone. ??? Painful urination. ??? An abnormality in the bladder found during an intravenous pyelogram (IVP) or CT scan. Cystoscopy may also be done to remove a sample of tissue to be examined under a microscope (biopsy). Tell a health care provider about: ??? Any allergies you have. ??? All medicines you are taking, including vitamins, herbs, eye drops, creams, and uvzx-xzr-xtegcww medicines. ??? Any problems you or family members have had with anesthetic medicines. ??? Any blood disorders you have. ??? Any surgeries you have had. ??? Any medical conditions you have. ??? Whether you are or may be . What are the risks? Generally, this is a safe procedure. However, problems may occur, including: ??? Infection. ??? Bleeding. ??? Allergic reactions to medicines. ??? Damage to other structures or organs. What happens before the procedure? Medicines Ask your health care provider about: ??? Changing or stopping your regular medicines. This is especially important if you are taking diabetes medicines or blood thinners. ??? Taking medicines such as aspirin and ibuprofen. These medicines can thin your blood. Do not take these medicines unless your health care provider tells you to take them. ??? Taking vxcj-nvx-pxyjxue medicines, vitamins, herbs, and supplements. Tests You may have an exam or testing, such as: ??? X-rays of the bladder, urethra, or kidneys. ??? CT scan of the abdomen or pelvis. ??? Urine tests to check for signs of infection. General instructions ??? Follow instructions from your health care provider about eating or drinking restrictions. ??? Ask your health care provider what steps will be taken to help prevent infection. These steps may include: ??? Washing skin with a germ-killing soap. ??? Taking antibiotic medicine. ??? Plan to have a responsible adult take you home from the hospital or clinic. What happens during the procedure? You will be given one or more of the following: ??? A medicine to help you relax (sedative). ??? A medicine to numb the area (local anesthetic). ??? The area around the opening of your urethra will be cleaned. ??? The cystoscope will be passed through your urethra into your bladder. ??? Germ-free (sterile) fluid will flow through the cystoscope to fill your bladder. The fluid willstretch your bladder so that your health care provider can clearly examine your bladder gavin. ??? Your doctor will look at the urethra and bladder. Your doctor may take a biopsy or remove stones. ??? The cystoscope will be removed, and your bladder will be emptied. The procedure may vary among health care providers and hospitals. What can I expect after the procedure? After the procedure, it is common to have: ??? Some soreness or pain in your abdomen and urethra. ??? Urinary symptoms. These include: ??? Mild pain or burning when you urinate. Pain should stop within a few minutes after you urinate.This may last for up to 1 week. ??? A small amount of blood in your urine for several days. ??? Feeling like you need to urinate but producing only a small amount of urine. Follow these instructions at home: Medicines ??? Take cblx-ohy-jkxkrhm and prescription medicines only as told by your health care provider. ??? If you were prescribed an antibiotic medicine, take it as told by your health care provider. Donot stop taking the antibiotic even if you start to feel better. General instructions ??? Return to your normal activities as told by your health care provider. Ask your health care provider what activities are safe for you. ??? If you were given a sedative during the procedure, it can affect you for several hours. Do not drive or operate machinery until your health care provider says that it is safe. ??? Watch for any blood in your urine. If the amount of blood in your urine increases, call your health care provider. ??? Follow instructions from your health care provider about eating or drinking restrictions. ??? If a tissue sample was removed for testing (biopsy) during your procedure, it is up to you to get your test results. Ask your health care provider, or the department that is doing the test, when your results will be ready. ??? Drink enough fluid to keep your urine pale yellow. ??? Keep all follow-up visits. This is important. Contact a health care provider if: ??? You have pain that gets worse or does not get better with medicine, especially pain when you urinate. ??? You have trouble urinating. ??? You have more blood in your urine. Get help right away if: ??? You have blood clots in your urine. ??? You have abdominal pain. ??? You have a fever or chills. ??? You are unable to urinate. Summary ??? Cystoscopy is a procedure that is used to help diagnose and sometimes treat conditions that affect the lower urinary tract. ??? Cystoscopy is done using a thin, tube-shaped instrument with a light and camera at the end. ??? After the procedure, it is common to have some soreness or pain in your abdomen and urethra. ??? Watch for any blood in your urine. If the amount of blood in your urine increases, call your health care provider. ??? If you were prescribed an antibiotic medicine, take it as told by your health care provider. Donot stop taking the antibiotic even if you start to feel better. This information is not intended to replace advice given to you by your health care provider. Make sure you discuss any questions you have with your health care provider. Document Revised: 11/03/2021 Document Reviewed: 10/02/2020 [employer] Patient Education ?? 2023 [employer] Follow Up Care 02/03/2025 11:15:38 With:Bladimir ANN, SPARKLE Lazcano, [facility] Address: [address] [place] [phone] When: Unknown Comments:f/u pending CTU results Patient Care team information Care Team Personnel Name: SHENG ORTEGA Member Role: Primary Care Physician Address: [address] [place] [address] Telecom: Care Team Related Persons Name: LINDY GONGORA Insurance Providers Guarantor name: Health Plan Information #: 1 Payer: [employer] Payer Identifier: [id number] Member Number: [id number] Group Number: [id number] Subscriber Identifier: [id number] Relationship to Subscriber: self Coverage Type: MEDICAID Coverage Verification Date: 25 Telecom: NA Address: [facility] [address] [place] [address]
[2025-03-01 17:41] VITALS: BP 140/97; PULSE 104; TEMP 36.6; O2SAT 99; BMI 43.9
--- NOTE | 2025-03-01 18:14 | ED.GENADUL1 ---
Documented by User: WILL Benson 03/01/25 18:38 HPI HPI - General Adult General Chief complaint: Skin/Abscess/Foreign Body Stated complaint: BIT BY SOMETHING ON LEFT HAND Time Seen by Provider: 03/01/25 17:17 Source: patient Mode of arrival: walk-in Limitations: no limitations History of Present Illness HPI narrative: Patient is a 39-year-old male with a PMH of insulin-dependent DM and CABG on Plavix/aspirin that presents with complaints of redness, swelling, and pus drainage from a small wound on his left dorsal hand. He noticed it this morning. He denies noticing that he was bit by anything. He has cat scratches on his other forearm and hand but denies that this was from a cat scratch. He states he has a history of MRSA infection. Related Data Home Medications ?Medication ?Instructions ?Recorded ?Confirmed aripiprazole 5 mg tablet 5 mg PO DAILY 04/10/23 01/17/25 aspirin 81 mg tablet,delayed 81 mg PO DAILY 04/10/23 01/17/25 release (Adult Low Dose Aspirin) clopidogrel 75 mg tablet 75 mg PO DAILY 04/10/23 01/17/25 dapagliflozin propanediol 10 mg 10 mg PO DAILY 04/10/23 01/17/25 tablet fluoxetine 20 mg capsule 20 mg PO DAILY 04/10/23 01/17/25 fluticasone propionate 50 2 spray intranasal DAILY PRN 04/10/23 01/17/25 mcg/actuation nasal congestion spray,suspension (Allergy Relief (fluticasone)) lisinopril 5 mg tablet 5 mg PO DAILY 04/24/23 01/17/25 atorvastatin 80 mg tablet 80 mg PO DAILY 01/17/25 01/17/25 cariprazine 1.5 mg capsule 1.5 mg PO QAM 01/17/25 01/17/25 (Vraylar) cetirizine 10 mg tablet 10 mg PO QAM 01/17/25 01/17/25 dulaglutide 3 mg/0.5 mL 3 mg subcut QWEEK 01/17/25 01/17/25 subcutaneous pen injector (Trulicity) insulin glargine 100 unit/mL (3 62 unit subcut QPM 01/17/25 01/17/25 mL) subcutaneous pen (Lantus Solostar U-100 Insulin) metoprolol tartrate 25 mg tablet 25 mg PO BID 01/17/25 01/17/25 Previous Rx's ?Medication ?Instructions ?Recorded cephalexin 500 mg capsule 500 mg PO Q12H 10 days #20 caps 03/01/25 sulfamethoxazole 800 1 tab PO Q12H 10 days #20 tabs 03/01/25 mg-trimethoprim 160 mg tablet (Bactrim DS) Allergies Allergy/AdvReac Type Severity Reaction Status Date / Time bupropion (From Wellbutrin) Allergy Severe Agitated Verified 03/01/25 17:41 Opioid HPI Opioid Management Most Recent Opioid Data: Last Pain Scale 3 Today, 18:08 Review of Systems ROS Status of ROS 10 or more systems reviewed and unremarkable except as noted in history and below PFS PFS Medical History (Updated 03/01/25 @ 18:28 by WILL Benson) COVID-19 ?U07.1 - COVID-19 (ICD-10) Seasonal allergic rhinitis ?J30.2 - Other seasonal allergic rhinitis (ICD-10) Hyperlipidemia ?E78.5 - Hyperlipidemia, unspecified (ICD-10) Hypertension ?I10 - Essential (primary) hypertension (ICD-10) Myocardial infarction ?I21.9 - Acute myocardial infarction, unspecified (ICD-10) CVA (cerebral vascular accident) ?I63.9 - Cerebral infarction, unspecified (ICD-10) Tongue lesion ?K14.8 - Other diseases of tongue (ICD-10) Surgical History (Updated 04/10/23 @ 08:21 by Clint Vargas) Status post biopsy of kidney ?Z98.890 - Other specified postprocedural states (ICD-10) H/O partial thyroidectomy ?E89.0 - Postprocedural hypothyroidism (ICD-10) H/O parathyroidectomy ?Z98.890 - Other specified postprocedural states (ICD-10) ?Z90.89 - Acquired absence of other organs (ICD-10) History of coronary artery bypass graft ?Z95.1 - Presence of aortocoronary bypass graft (ICD-10) Family History (Updated 04/10/23 @ 08:30 by Clint Vargas) Mother Family history of diabetes mellitus Social History Smoking status: Light tobacco smoker Little interest or pleasure in doing things: not at all Feeling down, depressed, or hopeless: not at all Exam Narrative Exam Narrative: General: No distress, age-appropriate Skin: Warm, dry, no pallor. No rash. Head: Normocephalic, atraumatic. Neck: Supple, non-tender. Eye: Pupils are equal, round and EOMI. No scleral icterus. Ears, Nose, Mouth, and Throat: No nasal mucosal hypertrophy. Oral mucosa is moist, no posterior oropharynx erythema, uvula is mid-line Cardiovascular: Regular Rate and Rhythm without murmur, gallop or rub. Respiratory: No accessory muscle use or respiratory distress. Lungs are clear to auscultation, no wheezing, rales or rhonchi Musculoskeletal: Full ROM of all extremities, except left hand unable to make a tight left fist secondary to swelling. There is an area of erythema and warmth on the dorsal aspect of the left hand worse around the fourth metacarpal. No crepitus with palpation. There is a small wound just proximal to the the fourth MCP joint with a small amount of induration, no fluctuance, but some tenderness. Less than 2-second capillary refill and sensation intact with light touch all fingers and thumb. No calf or popliteal tenderness Neurological: A&O x4. No cranial nerve dysfunction observed. No truncal ataxia. Moves all extremities. Sensation intact. Psychiatric: Cooperative and interactive. Normal mood and affect. Constitutional Vital Signs, click to edit/add: Last Vital Signs Temp 97.8 F 03/01/25 17:41 Pulse 104 H 03/01/25 17:41 Resp 16 03/01/25 17:41 BP 140/97 H 03/01/25 17:41 Pulse Ox 99 03/01/25 17:41 O2 Del Method Room Air 03/01/25 17:41 Documenting provider has reviewed patient's vital signs: yes Course Vital Signs Vital signs: Vital Signs Temperature 97.8 F 03/01/25 17:41 Pulse Rate 104 H 03/01/25 17:41 Respiratory Rate 16 03/01/25 17:41 Blood Pressure 140/97 H 03/01/25 17:41 Pulse Oximetry 99 03/01/25 17:41 Oxygen Delivery Method Room Air 03/01/25 17:41 Temperature 97.8 F 03/01/25 17:41 Pulse Rate 104 H 03/01/25 17:41 Respiratory Rate 16 03/01/25 17:41 Blood Pressure 140/97 H 03/01/25 17:41 Pulse Oximetry 99 03/01/25 17:41 Oxygen Delivery Method Room Air 03/01/25 17:41 Medical Decision Making MDM Narrative Medical decision making narrative: This is a 39-year-old male with insulin-dependent diabetes mellitus (DM) presenting with a small wound on the left dorsal hand that is red, swollen, and draining pus. The patient denies recent trauma or being bitten but does have cat scratches on other areas of his body. On arrival patient is in no distress, afebrile. Left hand has a small wound over the dorsal aspect of the fourth metacarpal with surrounding swelling, erythema, and warmth. Mild induration around the wound. No crepitance or fluctuance palpated. The left hand is neurovascularly intact. Given the clinical presentation, a diagnosis of a soft tissue infection was suspected, with consideration for a bacterial etiology. Antibiotics were initiated including Keflex 500 mg orally twice daily (BID) and Bactrim DS 800 mg/160 mg orally BID, for 10 days. The first dose of antibiotics was administered in the ER, and the patient was instructed on the importance of adherence to the full 10-day regimen. Given his diabetes, close monitoring of blood sugar and wound healing is recommended. Strict return precautions were provided, including seeking ER reevaluation for worsening pain, redness, swelling, or signs of systemic infection (fever, chills, malaise). The patient was advised to follow up with his primary care provider (PCP) within 48-72 hours for re-evaluation. The patient was also educated on proper wound care, including keeping the area clean and dry, and instructed to monitor for any new or worsening symptoms. Differential Diagnosis Differential Diagnosis: Cellulitis, abscess, infected bite, necrotizing fasciitis Discharge Plan Discharge Chief Complaint: Skin/Abscess/Foreign Body Clinical Impression: Cellulitis of hand Patient Disposition: Home, Self-Care Time of Disposition Decision: 18:28 Condition: Good Mode of Transportation: Private Vehicle Prescriptions / Home Meds: New sulfamethoxazole-trimethoprim [Bactrim DS] 800-160 mg tablet 1 tab PO Q12H 10 Days Qty: 20 0RF cephalexin 500 mg capsule 500 mg PO Q12H 10 Days Qty: 20 0RF No Action lisinopril 5 mg tablet 5 mg PO DAILY atorvastatin 80 mg tablet 80 mg PO DAILY Vraylar 1.5 mg capsule 1.5 mg PO QAM cetirizine 10 mg tablet 10 mg PO QAM Trulicity 3 mg/0.5 mL pen injector 3 mg SUBCUT QWEEK insulin glargine [Lantus Solostar U-100 Insulin] 100 unit/mL (3 mL) insulin pen 62 unit SUBCUT QPM metoprolol tartrate 25 mg tablet 25 mg PO BID aripiprazole 5 mg tablet 5 mg PO DAILY aspirin [Adult Low Dose Aspirin] 81 mg tablet,delayed release (DR/EC) 81 mg PO DAILY clopidogrel 75 mg tablet 75 mg PO DAILY dapagliflozin propanediol 10 mg tablet 10 mg PO DAILY fluoxetine 20 mg capsule 20 mg PO DAILY fluticasone propionate [Allergy Relief (fluticasone)] 50 mcg/actuation spray,suspension 2 spray intranasal DAILY PRN (Reason: congestion) Rx Instructions: administer into each nostril Print Language: Mozambican Instructions: Cellulitis (ED) Additional Instructions: Medications: Keflex (cephalexin) 500 mg, take 1 capsule by mouth twice daily (BID) for 10 days. Bactrim DS 800 mg/160 mg, take 1 tablet by mouth twice daily (BID) for 10 days. Take the medications as prescribed for the full 10 days, even if you start to feel better before finishing the course. Do not skip doses and do not stop taking the antibiotics early, as this could lead to the infection not fully clearing. Wound Care: Keep the wound clean and dry. Gently wash the area with mild soap and water. Apply a clean, sterile bandage over the wound after cleaning. Change the bandage daily or if it becomes wet or dirty. If the wound starts to drain more or you notice new redness, swelling, or warmth around the wound, this could indicate worsening infection. Signs of Infection: Return to the ER or contact your doctor immediately if you develop: Increased redness, swelling, or pain around the wound. Fever (temperature over 100.4?F or 38?C), chills, or shaking. New or worsening pus drainage, especially if it becomes thicker or has a foul odor. Increased warmth around the wound or an expanding red area. Difficulty breathing, dizziness, or feeling very unwell. Blood Sugar Monitoring (Due to Diabetes): Monitor your blood glucose closely, as infections can affect your blood sugar control. If your blood sugar is running high or if you feel unwell (fever, chills, etc.), contact your doctor to adjust your insulin or diabetes management plan. Ensure that your blood sugar stays within your target range to support healing. Follow-Up: Follow up with your Primary Care Provider (PCP) within 48-72 hours for re-evaluation of the wound and progress of the infection. If you experience any issues with wound healing or new symptoms, call your doctor as soon as possible. Activity Restrictions: Avoid strenuous activities that could irritate the wound or cause trauma to the area while it is healing. Do not pick at or scratch the wound, as this could introduce more bacteria. Return to the ER: If you have worsening symptoms or if you feel like the infection is spreading or not improving, return to the ER for further evaluation and treatment. Important Notes: If you have any allergies to antibiotics or if you notice any signs of an allergic reaction (rash, difficulty breathing, swelling of the face or throat), stop taking the medication and seek immediate medical attention. Keep the wound area elevated if possible to reduce swelling. Referrals: Lyndon Thomas DO [Physician, Orthopedics] - 1 week SHENG ORTEGA APRN [Primary Care Provider] - 1 week Documented by User: Yousif Kauffman DO 03/01/25 18:40 HPI HPI - General Adult General Chief complaint: Skin/Abscess/Foreign Body Stated complaint: BIT BY SOMETHING ON LEFT HAND Time Seen by Provider: 03/01/25 17:17 Related Data Home Medications ?Medication ?Instructions ?Recorded ?Confirmed aripiprazole 5 mg tablet 5 mg PO DAILY 04/10/23 01/17/25 aspirin 81 mg tablet,delayed 81 mg PO DAILY 04/10/23 01/17/25 release (Adult Low Dose Aspirin) clopidogrel 75 mg tablet 75 mg PO DAILY 04/10/23 01/17/25 dapagliflozin propanediol 10 mg 10 mg PO DAILY 04/10/23 01/17/25 tablet fluoxetine 20 mg capsule 20 mg PO DAILY 04/10/23 01/17/25 fluticasone propionate 50 2 spray intranasal DAILY PRN 04/10/23 01/17/25 mcg/actuation nasal congestion spray,suspension (Allergy Relief (fluticasone)) lisinopril 5 mg tablet 5 mg PO DAILY 04/24/23 01/17/25 atorvastatin 80 mg tablet 80 mg PO DAILY 01/17/25 01/17/25 cariprazine 1.5 mg capsule 1.5 mg PO QAM 01/17/25 01/17/25 (Vraylar) cetirizine 10 mg tablet 10 mg PO QAM 01/17/25 01/17/25 dulaglutide 3 mg/0.5 mL 3 mg subcut QWEEK 01/17/25 01/17/25 subcutaneous pen injector (Trulicity) insulin glargine 100 unit/mL (3 62 unit subcut QPM 01/17/25 01/17/25 mL) subcutaneous pen (Lantus Solostar U-100 Insulin) metoprolol tartrate 25 mg tablet 25 mg PO BID 01/17/25 01/17/25 Previous Rx's ?Medication ?Instructions ?Recorded cephalexin 500 mg capsule 500 mg PO Q12H 10 days #20 caps 03/01/25 sulfamethoxazole 800 1 tab PO Q12H 10 days #20 tabs 03/01/25 mg-trimethoprim 160 mg tablet (Bactrim DS) Allergies Allergy/AdvReac Type Severity Reaction Status Date / Time bupropion (From Wellbutrin) Allergy Severe Agitated Verified 03/01/25 17:41 Opioid HPI Opioid Management Most Recent Opioid Data: Last Pain Scale 3 Today, 18:08 [facility] Medical History (Updated 03/01/25 @ 18:28 by WILL Benson) COVID-19 ?U07.1 - COVID-19 (ICD-10) Seasonal allergic rhinitis ?J30.2 - Other seasonal allergic rhinitis (ICD-10) Hyperlipidemia ?E78.5 - Hyperlipidemia, unspecified (ICD-10) Hypertension ?I10 - Essential (primary) hypertension (ICD-10) Myocardial infarction ?I21.9 - Acute myocardial infarction, unspecified (ICD-10) CVA (cerebral vascular accident) ?I63.9 - Cerebral infarction, unspecified (ICD-10) Tongue lesion ?K14.8 - Other diseases of tongue (ICD-10) Surgical History (Updated 04/10/23 @ 08:21 by Clint Vargas) Status post biopsy of kidney ?Z98.890 - Other specified postprocedural states (ICD-10) H/O partial thyroidectomy ?E89.0 - Postprocedural hypothyroidism (ICD-10) H/O parathyroidectomy ?Z98.890 - Other specified postprocedural states (ICD-10) ?Z90.89 - Acquired absence of other organs (ICD-10) History of coronary artery bypass graft ?Z95.1 - Presence of aortocoronary bypass graft (ICD-10) Family History (Updated 04/10/23 @ 08:30 by Clint Vargas) Mother Family history of diabetes mellitus Social History Smoking status: Light tobacco smoker Little interest or pleasure in doing things: not at all Feeling down, depressed, or hopeless: not at all Exam Constitutional Vital Signs, click to edit/add: Last Vital Signs Temp 97.8 F 03/01/25 17:41 Pulse 104 H 03/01/25 17:41 Resp 16 03/01/25 17:41 BP 140/97 H 03/01/25 17:41 Pulse Ox 99 03/01/25 17:41 O2 Del Method Room Air 03/01/25 17:41 Course Vital Signs Vital signs: Vital Signs Temperature 97.8 F 03/01/25 17:41 Pulse Rate 104 H 03/01/25 17:41 Respiratory Rate 16 03/01/25 17:41 Blood Pressure 140/97 H 03/01/25 17:41 Pulse Oximetry 99 03/01/25 17:41 Oxygen Delivery Method Room Air 03/01/25 17:41 Temperature 97.8 F 03/01/25 17:41 Pulse Rate 104 H 03/01/25 17:41 Respiratory Rate 16 03/01/25 17:41 Blood Pressure 140/97 H 03/01/25 17:41 Pulse Oximetry 99 03/01/25 17:41 Oxygen Delivery Method Room Air 03/01/25 17:41 Medical Decision Making MDM Narrative Medical decision making narrative: This is a 39-year-old male with insulin-dependent diabetes mellitus (DM) presenting with a small wound on the left dorsal hand that is red, swollen, and draining pus. The patient denies recent trauma or being bitten but does have cat scratches on other areas of his body. On arrival patient is in no distress, afebrile. Left hand has a small wound over the dorsal aspect of the fourth metacarpal with surrounding swelling, erythema, and warmth. Mild induration around the wound. No crepitance or fluctuance palpated. The left hand is neurovascularly intact. Given the clinical presentation, a diagnosis of a soft tissue infection was suspected, with consideration for a bacterial etiology. Antibiotics were initiated including Keflex 500 mg orally twice daily (BID) and Bactrim DS 800 mg/160 mg orally BID, for 10 days. The first dose of antibiotics was administered in the ER, and the patient was instructed on the importance of adherence to the full 10-day regimen. Given his diabetes, close monitoring of blood sugar and wound healing is recommended. Strict return precautions were provided, including seeking ER reevaluation for worsening pain, redness, swelling, or signs of systemic infection (fever, chills, malaise). The patient was advised to follow up with his primary care provider (PCP) within 48-72 hours for re-evaluation. The patient was also educated on proper wound care, including keeping the area clean and dry, and instructed to monitor for any new or worsening symptoms. ATTENDING ADDENDUM: Dr. Kauffman Patient seen and evaluated at bedside with midlevel provider. Agree with plan. Patient's presentation is consistent with left hand cellulitis. Given that he is an insulin-dependent type 2 diabetic with a history of sepsis secondary to cellulitis, he is at risk for progression of his infection. However, at this time, he exhibits no systemic symptoms. He is afebrile without concern for sepsis at this time. I do believe he is appropriate for outpatient trial of oral antibiotics. He was given a prescription for Bactrim and Keflex x 10 days. He was given information for the Ortho clinic, instructed follow-up with his PCP for further care. He was given his first dose of antibiotics while here in the ED. He was given strict return precautions, instructed to return to the emergency department should his symptoms worsen despite being on antibiotics. Worsening of the symptoms include fevers, flulike symptoms, or spreading of the cellulitis up his arm. I did discuss this plan with the patient, who agrees with the plan, and agrees to return to the ED should his symptoms worsen. FINAL IMPRESSION: #Acute left hand cellulitis #History of insulin-dependent type 2 diabetes DISPOSITION: Discharged home CONDITION: Fair Discharge Plan Discharge Chief Complaint: Skin/Abscess/Foreign Body Clinical Impression: Cellulitis of hand Patient Disposition: Home, Self-Care Time of Disposition Decision: 18:28 Condition: Good Mode of Transportation: Private Vehicle Prescriptions / Home Meds: New sulfamethoxazole-trimethoprim [Bactrim DS] 800-160 mg tablet 1 tab PO Q12H 10 Days Qty: 20 0RF cephalexin 500 mg capsule 500 mg PO Q12H 10 Days Qty: 20 0RF No Action lisinopril 5 mg tablet 5 mg PO DAILY atorvastatin 80 mg tablet 80 mg PO DAILY Vraylar 1.5 mg capsule 1.5 mg PO QAM cetirizine 10 mg tablet 10 mg PO QAM Trulicity 3 mg/0.5 mL pen injector 3 mg SUBCUT QWEEK insulin glargine [Lantus Solostar U-100 Insulin] 100 unit/mL (3 mL) insulin pen 62 unit SUBCUT QPM metoprolol tartrate 25 mg tablet 25 mg PO BID aripiprazole 5 mg tablet 5 mg PO DAILY aspirin [Adult Low Dose Aspirin] 81 mg tablet,delayed release (DR/EC) 81 mg PO DAILY clopidogrel 75 mg tablet 75 mg PO DAILY dapagliflozin propanediol 10 mg tablet 10 mg PO DAILY fluoxetine 20 mg capsule 20 mg PO DAILY fluticasone propionate [Allergy Relief (fluticasone)] 50 mcg/actuation spray,suspension 2 spray intranasal DAILY PRN (Reason: congestion) Rx Instructions: administer into each nostril Print Language: [place]ican Instructions: Cellulitis (ED) Additional Instructions: Medications: Keflex (cephalexin) 500 mg, take 1 capsule by mouth twice daily (BID) for 10 days. Bactrim DS 800 mg/160 mg, take 1 tablet by mouth twice daily (BID) for 10 days. Take the medications as prescribed for the full 10 days, even if you start to feel better before finishing the course. Do not skip doses and do not stop taking the antibiotics early, as this could lead to the infection not fully clearing. Wound Care: Keep the wound clean and dry. Gently wash the area with mild soap and water. Apply a clean, sterile bandage over the wound after cleaning. Change the bandage daily or if it becomes wet or dirty. If the wound starts to drain more or you notice new redness, swelling, or warmth around the wound, this could indicate worsening infection. Signs of Infection: Return to the ER or contact your doctor immediately if you develop: Increased redness, swelling, or pain around the wound. Fever (temperature over 100.4?F or 38?C), chills, or shaking. New or worsening pus drainage, especially if it becomes thicker or has a foul odor. Increased warmth around the wound or an expanding red area. Difficulty breathing, dizziness, or feeling very unwell. Blood Sugar Monitoring (Due to Diabetes): Monitor your blood glucose closely, as infections can affect your blood sugar control. If your blood sugar is running high or if you feel unwell (fever, chills, etc.), contact your doctor to adjust your insulin or diabetes management plan. Ensure that your blood sugar stays within your target range to support healing. Follow-Up: Follow up with your Primary Care Provider (PCP) within 48-72 hours for re-evaluation of the wound and progress of the infection. If you experience any issues with wound healing or new symptoms, call your doctor as soon as possible. Activity Restrictions: Avoid strenuous activities that could irritate the wound or cause trauma to the area while it is healing. Do not pick at or scratch the wound, as this could introduce more bacteria. Return to the ER: If you have worsening symptoms or if you feel like the infection is spreading or not improving, return to the ER for further evaluation and treatment. Important Notes: If you have any allergies to antibiotics or if you notice any signs of an allergic reaction (rash, difficulty breathing, swelling of the face or throat), stop taking the medication and seek immediate medical attention. Keep the wound area elevated if possible to reduce swelling. Referrals: Lyndon Thomas DO [Physician, Orthopedics] - 1 week SHEGN ORTEGA APRN [Primary Care Provider] - 1 week
--- OUTSIDE RECORDS SUMMARY | 2025-03-01 18:30 | XMS_ITS | Clinical Summary ---
Author Organization [facility] Address [address] [place] [address] Care Team Providers Care Burnisher Name Role Phone Munira Das MD Primary Care Provider [phone] Allergies Active AllergyReactionsCriticalityNoted DateCommentsBupropion FcfEul7701/26/2022 Increased irritability and insomnia Food Allergy IzjwihwPjo26/14/2022 Watermelon, cantaloupe, honeydew Melon08/28/2021 Other reaction(s): Swelling of Lip/Tongue/Throat EbrvilUxb09/25/2022 Other reaction(s): Swelling of Lip/Tongue/Throat Medications MedicationSigDispense [...] by mouth in the morning.09/12/2022ctive Dexcom G4 [place] reverser (Dexcom G7 Curriculum And Assessment Director) misc 1 Device in the morning.05/10/2023ctive blood-glucose [...] in the morning.Active TRUEplus Lancets 33 gauge [facility] use 1 LANCET to TEST BLOOD SUGAR every bndxsgn1405/05/2023ctive loratadine-pseudoephedrine (Claritin-D 24-hour) 10-240 mg 24 hr tablet 1 tablet.08/28/2021ctive metoprolol succinate XL (Toprol-XL) 25 mg 24 hr tablet Take 25 mg by mouth in the morning.Active Droplet Pen Needle 31 gauge x 1/4 needle use 1 PEN NEEDLE to inject MEDICATION subcutaneously as wezoublw06/04/2024ctive atorvastatin (Lipitor) 80 mg tablet Take 80 [...] with microalbuminuria, without long-term current use of xehfjpp44Hyperlipidemia Tongue gtlrnv67urrent moderate episode of major depressive [id number]/15/2023H/O heart artery stentost-procedural erectile dysfunction Overview (03/29/2023): 06/21/22: Erectile dysfunction after winter shunt. Could consider penile injection therapy or penileprosthesis. Acute kidney injury superimposed on CKD Overview (03/29/2023): Last Assessment & Plan: Last Assessment & Plan: History of primary ikvhcrosihmhgvxbbcj59/28/202301/24/2024History of type 2 diabetes abslwhnq85OSA (obstructive sleep apnea)05/31/2022 03/29/2023Multiple vessel coronary artery plifaep64llergic bkeboeka91nxietyHHNC (hyperglycemic hyperosmolar nonketotic coma)Morbid xdwxmbb1305/23/2022 03/29/2023NSTEMI (non-ST elevated myocardial infarction) Cerebrovascular accident (CVA)03/25/20229102Gyqovahq03/20/8121Fkssz93/20/2023leural ajvbwixm45/20/2023CKD (chronic kidney disease), stage III12/07/2021 Overview (03/25/2022): 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 Baseline in 2079 was 0.8 peaked up to 2.1 at [facility] in August 2021. On discharge creatinine was down to 1.3. Urine sediment benign. Work-up for immune complex disease negative, paraprotein disease and vasculitis negative as well. Secondary to ischemic ATN from sepsis, septic shock, NSAIDs, Bactrim, vancomycin and contrast. Baseline in 2079 was 0.8 peaked up to 2.1 at [facility] in August 2021. On discharge creatinine was down to 1.3. Urine sediment benign. Work-up for immune complex disease negative, paraprotein disease and vasculitis negative as well. Acute pulmonary edema2Cerebral dpmpgayh27/21/2022Cerebral septic emboli 11/24/20217754Pmjwodtglginw23/21/2022 Overview (03/25/2022): With increased PTH but negative sestamibi scan PTH 141 calcium had gone up to 11.0, on discharge down to 8.6. With increased PTH but negative sestamibi scan PTH 141 calcium had gone up to 11.0, on discharge down to 8.6. Pericardial ozreqacu13/21/2022Rhinovirus iwtoohqcv11/21/2022epsis due to Streptococcus species without acute organ cpfrtdnhwef82/21/2022taphylococcus aureus /21/2022rimary fnojugjddzrj60/26/2022 Overview (03/25/2022): Blood pressures running in the 140-150 systolic range Blood pressures running in the 140-150 systolic range Idbyojhzpi61/11/2022cute respiratory failure with nskvrbb2508/29/2021ardiac dupalomcn93/26/2022riapism, rwuuiqogxyd98/27/2016 Encounters DateTypeDepartmentCare HksdXlogcdmowjl04/11/2025 10:40 AM ESTFollow-Up [facility] at [address] [phone] [place] Crane Type 2 diabetes mellitus with hyperglycemia, with long-term current use of insulin ([facility]) (Primary Dx); Dyslipidemia; Hypertension, unspecified type12/13/2024Orders Only [facility] at [address] [phone] [place] Crane Type 2 diabetes mellitus with hyperglycemia, with long-term current use of insulin ([facility])12/11/2024Telephone [facility] at [address] [phone] [place] Crane Med Refillfrom Last 3 Months [...] hard at all02/20/2023HQ-2 AnswerDate RecordedPatient Health Questionnaire-2 [id number] Safety & EnvironmentAnswerDate RecordedWithin the last year, [...] file02/20/2023Sex and Gender InformationValueDate RecordedSex Assigned at WiwfqCiyg03/11/2025 10:14 AM EDTLegal DzpUvdv1509/15/2021 8:42 AM EDTGender HxaroufmHtdi51/11/2025 10:14 AM EDTSexual Orientation Heterosexual or Xgqchypu26/11/2025 10:14 AM EDT Last Filed Vital Signs Vital SignReadingTime TakenCommentsBlood Roxwrapd406/7202/13/2025 10:45 AM EST Kfqye813602/13/2025 10:45 AM FTQGpsukmxjfxb38.7 ??C (98.1 ??F)07/04/2023 2:38 PM EDTRespiratory Onwr353504/26/2022 4:11 PM ESTOxygen Zpeeazqllg92%02/13/2025 10:45 AM ESTInhaled Oxygen Concentration--Sobxwe564 kg (255 lb)02/13/2025 10:45 AM EST Rpgeiz011.6 cm (5' 4 )03/20/2024 10:56 AM ESTBody Mass Index43.77003/20/2024 10:56 AM EST Plan of Treatment DateTypeDepartmentCare Team (Latest Contact Info)Wlokxeujhwg01/10/2026 10:00 AM EDTFollow-Up [facility] at [facility] [address] [place] [phone] [place] Crane [address] [facility] [address]. [place] [address] Health MaintenanceDue DateLast DoneCommentsDiabetes: Retinopathy Screening 1994Depression Fthtmazwu41/25/1997Varicella Vaccines (1 of 2 - 13+ 2-dose series)1997Hepatitis B Vaccines (1 of 3 - 19+ 3-dose series)06/29/2003 Pneumococcal Vaccine: Pediatrics (0 to 5 Years) and At-Risk Patients (6 to 64 Years) (1 of 2 - PCV)06/29/2003Adult Gdkstyd1806/28/2006HPV Vaccines (1 - 3-dose SCDM series)06/29/2011Diabetes: Urine Protein Hthkfkuup45/08/2022, 03/29/2022, 2COVID-19 Vaccine ( - 2024- season)2024Diabetes: Hemoglobin A1C612/01/2025, 11/14/2024Zoster Vaccines (1 of 2)2034 Influenza IlnjerqSksovbzaq52/10/2025, 01/26/2024HIB VaccinesAged OutNo longer eligible based on [...] Procedures Procedure NamePriorityDate/TimeAssociated DiagnosisCommentsPOCT GLYCOSYLATED HEMOGLOBIN (HGB A1C)Dnaozej7202/13/2025 11:06 AM EST Type 2 diabetes mellitus with hyperglycemia, with long-term current use of insulin ([facility]) from Last 3 Months Results * (ABNORMAL) POCT glycosylated hemoglobin (Hb A1C) (02/13/2025 11:06 AM EST) ComponentValueRef RangeTest MethodAnalysis TimePerformed AtPathologist SignatureHemoglobin A1C6.6SOURCE:BloodLot Number#[id number] DATE#10/30Specimen (Source)Anatomical Location / LateralityCollection Method / VolumeCollection TimeReceived TimeBloodVenous blood specimen / Ucdmfvh4802/13/2025 11:06 AM EST Narrative Authorizing ProviderResult TypeResult StatusJoAdventist Health [facility]. JunPOINT OF CARE TEST ENTER/EDIT ORDERABLESEdited Result - Final from Last 3 Months Insurance Advance Directives * Full Code (Latest Code Status on File) Date ActivatedDate DhihdfryrcbIchsvlcr86/18/2023 8:44 AM02/23/2023 8:38 PM Care Teams Team MemberRelationshipSpecialtyStart DateEnd Date Munira Das MD PCP - GeneralFamily Detmzlsv93/14/22
--- OUTSIDE RECORDS SUMMARY | 2025-03-01 18:30 | XMS_ITS | Clinical Summary ---
Author Organization [facility] 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 MIXER - [facility] Primary Care Prov ider Allergies Active AllergyReactionsCriticalityNoted DluhDncwqkjbLxwl26/29/2022 Watermelon, Honeydew, Cantelope Ghtlkd9809/01/2021 Medications MedicationSigDispense QuantityRefillsLast FilledStart DateEnd DateStatus fluticasone (VERAMYST) 27.5 MCG/SPRAY nasal spray 2 sprays by Each Nostril route dailyActive cetirizine (ZYRTEC) 10 MG tablet Take 1 tablet by mouth dailyActive dapagliflozin (FARXIGA) 10 MG tablet Take 1 tablet by mouth every morningActive lisinopril (PRINIVIL;ZESTRIL) 5 MG tablet Take 1 tablet by mouth daily 90 tablet ctive atorvastatin (LIPITOR) 80 MG tablet Take 1 tablet by mouth wnbnggu0603/08/2023ctive VRAYLAR 1.5 MG capsule Take 1 capsule by mouth every bqhhawy7505/10/2023ctive LEVEMIR FLEXPEN 100 UNIT/ML injection pen Inject 10 Units into the skin brlfiql1405/05/2023ctive TRUEplus Lancets 33G MIS use 1 LANCET to TEST BLOOD SUGAR every hasjqne7105/05/2023ctive ARIPiprazole (ABILIFY) 5 MG tablet Take 1 tablet by mouth dailyActive BD PEN NEEDLE MICRO U/F 32G X 6 MM MISC USE DIRECTED SUBCUTANEOUSLY (UNDER THE SKIN) TWICE DAILY (IN THE MORNING AND AT BEDTIME)11/30/2023ctive DROPLET PEN NEEDLES 31G X 6 MM MISC use 1 PEN NEEDLE to inject MEDICATION subcutaneously DAILY as mmamruku68/31/2024 Active VICTOZA 18 MG/3ML SOPN SC injection Inject 0.6 mg into the skin daily07/19/2023ctive FLUoxetine (PROZAC) 20 MG capsule Take 1 capsule by mouth every klkvxxh0910/01/2023ctive metoprolol tartrate (LOPRESSOR) 25 MG tablet Take 1 tablet by mouth 2 times daily Please contact office to schedule appt for additional refills. 180 tablet 5Active aspirin (ASPIRIN LOW DOSE) 81 MG EC tablet TAKE 1 TABLET BY MOUTH DAILY 90 tablet 5Active clopidogrel (PLAVIX) 75 MG tablet TAKE 1 TABLET BY MOUTH DAILY 90 tablet 5Active clopidogrel (PLAVIX) 75 MG tablet Take 1 tablet by mouth daily NEEDS TO CALL FOR AN APPT FOR FURTHER REFILLS 90 tablet Discontinued aspirin (ASPIRIN LOW DOSE) 81 MG EC tablet Take 1 tablet by mouth daily NEEDS TO CALL FOR AN APPT FOR FURTHER REFILLS 90 tablet Discontinued Active Problems ProblemNoted DateDiagnosed EyhfOcvstjwyoldh83/06/2024 Overview (04/11/2023): Post prathyroidectomy H/O heart artery stent09/27/2022S/P CABG (coronary artery bypass graft) 06/23/2022rimary ghfkigkkokwdwyvullm87/28/2023 Overview (04/11/2023): S/p parathyroidectomy Mar 2023 at [facility] (obstructive sleep apnea)05/31/2022History of type 2 diabetes mellitus 05/31/2022Multiple vessel coronary artery qqqqzfg3405/27/2022NSTEMI (non-ST elevated myocardial infarction)05/23/2022Hypertensive uthbcc9305/23/2022Morbid awhdzec3505/23/20227145Geoaobo33/20/2023llergic kqjwqqla80/20/2023HHNC (hyperglycemic hyperosmolar nonketotic coma)05/23/2022ersistent pktheesmfye17/04/2022 Overview (10/06/2022): ACR 1300, UPC 0.9 10/06/2022: 24 urine protein 312 9 g in 24 hours indicating increase from 2.2 g 3 months earlier. Discussed with patient agreeable for kidney biopsy. 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 Kidney biopsy from [facility] 10/21/22, reviewed. 70 glomeruli assessed 13 were obsolescent. 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 Immunofluorescence negative, no inflammatory changes, no endocapillary or extra capillary proliferation. Pathologist feels the kidneys appears end-stage Dilated avgdmqudpclgnl17/26/2022 Overview (09/28/2021): Ejection fraction 30% compensated CHF Essential sjtzamjasptz85/26/2022 Overview (09/28/2021): Blood pressures running in the 140-150 systolic range Wwszildqjh91/11/2022Cardiac hphfcsvny68/26/2022cute respiratory failure with qqsared0608/29/2021riapism, ceujqsccavj55/27/2016Acute heart failureAcute pulmonary edemaPericardial effusion with cardiac tamponadePericardial effusion Pleural effusionRhinovirus infectionFeverSepsis due to Streptococcus species without acute organ dysfunctionStaphylococcus aureus pneumoniaDeliriumCerebral septic emboliAcute kidney injury superimposed on CKD Assessment & Plan (05/23/2022 1:35 PM EDT): Hypercalcemia Overview (09/28/2021): With increased PTH but negative sestamibi scan PTH 141 calcium had gone up to 11.0, on discharge down to 8.6. Cerebral embolismCerebrovascular accident (CVA) Encounters DateTypeDepartmentCare MwtiKnkpnkhmitw82/02/2025Refill [place] Whizzer Operator - [place] [address], [address] [place] [address] Harsh Esquivel MD Medication Krqoni1901/21/2025Refill [place] [facility] Operator - [place] [address], [address] [place] [address] Harsh Esquivel MD Medication Xmhxak3301/21/2025Refill [place] Wh[facility] Operator - [place] [address], [address] [place] [address] Harsh Esquivel MD Medication Refillfrom Last 3 Months Family History Medical HistoryRelationNameCommentsHeart DiseaseFatherRelationNameStatusComments Father Social History Tobacco UseTypesPacks/DayYears UsedDateSmoking Tobacco: FormerCigarettes0.917.5 09/13/2006 - 09/13/2021mokeless Tobacco: FormerSnuffQuit: 10/20/2019 Tobacco Cessation:Counseling Given: Not Answered Alcohol UseStandard Drinks/WeekCommentsYes0 (1 standard drink = 0.6 oz pure alcohol)sociallyInterpersonal Safety Domain Source: IP Abuse ScreeningAnswerDate RecordedRead-Only, Retired: Physical BxzmdLbrcfi04/22/2023Read-Only, Retired: Verbal GxyajMttauy29/22/2023Read-Only, Retired: Emotional ccmniYkrjfc84/22/2023 Read-Only, Retired: Financial JinecCqfiks04/22/2023Read-Only, Retired: Sexual npebhTbtmph34/22/2023Sex and Gender InformationValueDate RecordedSex Assigned at BirthNot on fileLegal HqrZfbk41/27/2016 1:53 AM ESTGender IdentityNot on file Sexual OrientationNot on file Last Filed Vital Signs Vital SignReadingTime TakenCommentsBlood Dqjsfgkx054/7201/09/2024 11:41 AM EST Deban2354/07/2025 11:41 AM FUGXmqgvlmpfgh31 ??C (96.8 ??F)10/21/2022 3:00 PM EDT Respiratory Hrgb5719 9:31 AM EDTOxygen Psprzyoibd63%12/14/2023 9:31 AM EDTInhaled Oxygen Concentration--Qavwgr443.2 kg (287 lb)03/12/2024 11:41 AM EST Kdtmqm073.6 cm (5' 4 )12/14/2023 9:31 AM EDTBody Mass Index49.261 9:31 AM EDT Plan of Treatment DateTypeDepartmentCare Team (Latest Contact Info)Jzfnyqkvyix79/27/2026 9:00 AM ESTOffice Visit [place] Wh[facility] Operator - [address] [address] Harsh Esquivel MD [address] [facility] [address] [place] [id number] f/uHealth MaintenanceDue DateLast DoneCommentsDiabetic foot exam1994 Depression Cinzpg5906/28/1996Varicella vaccine (1 of 2 - 13+ 2-dose series) 1997Diabetic retinal exam2002DTaP/Tdap/Td vaccine (1 - Tdap) 06/29/2003Hepatitis B vaccine (1 of 3 - 19+ 3-dose series)06/29/2003Pneumococcal 0-49 years Vaccine (1 of 2 - PCV)06/29/2003Diabetic Alb to Cr ratio (uACR) test 406/1435I6T test (Diabetic or Prediabetic)409/07/2022, 05/30/2022, 05/23/20225193Ocyulx68/18/078984, 05/24/2022, 3GFR test (Diabetes, CKD 3-4, OR last GFR 15-59)507/04/2023, 07/04/2023, 05/31/2023, Additional history existsFlu vaccine (#1)10/04/2024OVID-19 Vaccine ( season)2024Hepatitis C xxvqqtGksvunyqg45/30/2022HIV screen Smmdirotb13/01/2022Diabetes oikjcrAwujymsplnqq97/05/2023, 05/30/2022, 05/23/2022 HPV vaccine (No Doses Required)CompletedHepatitis A vaccineAged OutNo longer eligible based on patient's age to complete this topicHib vaccineAged OutNo longer eligible based on patient's age to complete this topicMeningococcal (ACWY) vaccineAged OutNo longer eligible based on patient's age to complete this topicMeningococcal B vaccineAged OutNo longer eligible based on patient's age to complete this topicPolio vaccineAged OutNo longer eligible based on patient's age to complete this topic Medical Devices ImplantedTypeAreaManufacturerDevice IdentifierShelf Expiration DateModel / Serial / LotClip Int M L Grn Ti Trnsvrs Grv Chevron Shp W/ Precis Tip - [id number] Implanted:Qty: 1 on 05/31/2022 by [id number] / / Device Strnl Clsr Multiimplant Strnlock 360 - [id number] Implanted:Qty: 1 on 06/02/2022 by [facility]: SternumZIMMER [employer]-[id number] / / [id number] Bne L12mm Dia2.4mm G Canc Ti Self Drl Kinjal Full Thrd - [id number] Implanted:Qty: 4 on 06/02/2022 by [facility]: SternumZIMMER BIOMET MICROFIXATION-[id number] / / Screw Bne L14mm Dia2.4mm G Canc Ti Self Drl Kinjal Full Thrd - [id number] Implanted:Qty: 12 on 06/02/2022 by [facility]: SternumZIMMER [employer]OMET MICROFIXATION-[id number] / / Screw Bne L18mm Dia2.4mm G Canc Self Drl Kinjal Full Thrd - [id number] Implanted:Qty: 4 on 06/02/2022 by [facility]: SternumZIMMER BIOMET MICROFIXATION-[id number] / / Plate Bne 4 H Bx Shp Sternalock Redd Marina Clsr Sys - [id number] Implanted:Qty: 1 on 06/02/2022 by [facility]: SternumZIMMER BIOMET MICROFIXATION-[id number] / / Procedures Procedure NamePriorityDate/TimeAssociated DiagnosisCommentsBASIC METABOLIC PANEL Qvupuma2909/05/2023 12:59 PM EDT Stage 3b chronic kidney disease (HCC) Hypercalcemia Hyperparathyroidism Persistent proteinuria Type 2 diabetes mellitus with other specified complication, without long-term current use of insulin (HCC) LIPID QSQWDOneowvf95/18/2023 12:33 PM EDT CAD in tuluksak artery HEMOGLOBIN K7PCpjcbfe55/05/2023 11:58 AM EDT Stage 3b chronic kidney disease (HCC) Hypercalcemia Persistent proteinuria Hyperparathyroidism Primary hypertension Type 2 diabetes mellitus with other specified complication, without long-term current use of insulin (HCC) MICROALBUMIN, NBCuldxmm02/06/2023 2:00 PM EDT HIV XBQBACYyiqqag29/01/2022 4:51 PM EDT HEPATITIS PANEL, IBRLMXcjrowc10/30/2022 12:25 PM EDT from Last 3 Months or Most Recently Relevant to Health Maintenance Results * (ABNORMAL) Basic Metabolic Panel (09/05/2023 12:59 PM EDT)ComponentValueRef RangeTest MethodAnalysis TimePerformed AtPathologist PsqfbkstoOppvzd288674 - 144 mmol/L09/05/2023 12:59 PM [facility] LABPotassium4.8 3.7 - 5.3 mmol/L09/05/2023 12:59 PM [facility] Apritedj27270 - 107 mmol/L09/05/2023 12:59 PM [facility] ZLQMZ92944 - 31 mmol/L09/05/2023 12:59 PM [facility] Anion Dao940 - 17 mmol/L09/05/2023 12:59 PM [facility] RCSOtqogam764(H)70 - 99 mg/dL09/05/2023 12:59 PM [facility] ZKNYZH84(H)6 - 20 mg/dL09/05/2023 12:59 PM [facility] LABCreatinine2.0(H)0.7 - 1.2 mg/dL09/05/2023 12:59 PM [facility] LABEst, Glom Filt Rate43(L)>60 mL/min/1.09s90409/05/2023 12:59 PM [facility] LABComment: ? These results are not intended for use in patients <18 years of age. ? eGFR results are calculated without a race factor using the 2020 CKD-EPI equation. Careful clinical correlation is recommended, particularly when comparing to results calculated using previous equations. The CKD-EPI equation is less accurate in patients with extremes of muscle mass, extra-renal metabolism of creatine, excessive creatine ingestion, or following therapy that affects renal tubular secretion. BUN/Creatinine Nqqoz437 - 12:59 PM [facility] LABCalcium9.58.6 - 10.4 mg/dL09/05/2023 12:59 PM [facility] LABSpecimen (Source)Anatomical Location / LateralityCollection Method / Volume Collection TimeReceived TimeBloodBLOOD SPECIMEN / Rhnkdkt8309/05/2023 12:59 PM EDT 09/05/2023 1:00 PM EDT Narrative Authorizing ProviderResult TypeResult StatusBalhinder S Maggie MDCHEMISTRY ORDERABLESFinal ResultPerforming OrganizationAddressCity/State/ZIP CodePhone Number [facility] [address] [place] [address], [facility] [phone] * (ABNORMAL) Lipid Panel (12/21/2022 12:33 PM EDT)ComponentValueRef RangeTest MethodAnalysis TimePerformed AtPathologist NazgvlfebBszfnckzyny846(H)<200 mg/dL12/21/2022 12:33 PM EDTMERCY LABORATORIESComment: Cholesterol Guidelines: <200 Desirable 200-240 ??Borderline >240 Undesirable HDL44>40 mg/dL12/21/2022 12:33 PM EDTMERCY LABORATORIESComment: HDL Guidelines: <40 Undesirable 40-59 ?Borderline >59 Desirable LDL Dzfhgapuoow3951 - 130 mg/dL12/21/2022 12:33 PM EDTMERCY LABORATORIESComment: LDL Guidelines: <100 Desirable 100-129 ?? Near to/above Desirable 130-159 ?? Borderline >159 Undesirable Direct (measured) LDL and calculated LDL are not interchangeable tests. Chol/HDL Ratio4.9< 12:33 PM EDTMERCY LABORATORIESComment: Uaoedhgjsnprd371(H)<150 mg/dL12/21/2022 12:33 PM EDTMERCY LABORATORIESComment: Triglyceride Guidelines: <150 Desirable 150-199 ??Borderline 200-499 ??High >499 Very high Based on AHA Guidelines for fasting triglyceride, December 2011. Specimen (Source)Anatomical Location / LateralityCollection Method / Volume Collection TimeReceived TimeBloodBLOOD SPECIMEN / Ywqsxpx2512/21/2022 12:33 PM EDT 12/21/2022 12:34 PM EDT Narrative Authorizing ProviderResult TypeResult StatusMohammed Taleb MDCHEMISTRY ORDERABLESFinal ResultPerforming OrganizationAddressCity/State/ZIP CodePhone Number [facility] [address] [place] [address], [facility] [phone] [phone] * Hemoglobin A1C (11/08/2022 11:58 AM EDT)ComponentValueRef RangeTest Method Analysis TimePerformed AtPathologist SignatureHemoglobin A1C5.24.0 - 6.0 % 11/08/2022 11:58 AM EDTMERCY LABORATORIESEstimated Avg Nsnyvwn777ro/dL 11/08/2022 11:58 AM EDTMERCY LABORATORIESComment: The ADA and AACC recommend providing the estimated average glucose result to permit better patient understanding of their HBA1c result. Specimen (Source)Anatomical Location / LateralityCollection Method / Volume Collection TimeReceived TimeBLOOD SPECIMEN / Gdcpzpc6811/08/2022 11:58 AM EDT 11/08/2022 11:59 AM EDT Narrative Authorizing ProviderResult TypeResult StatusMartin Serrano MDCHEMISTRY ORDERABLESFinal ResultPerforming OrganizationAddressCity/State/ZIP CodePhone Number [facility] [address] [place] [address], [facility] [phone] [place] [address], [facility] [phone] * (ABNORMAL) Microalbumin, Ur (08/09/2022 2:00 PM EDT)ComponentValueRef Range Test MethodAnalysis TimePerformed AtPathologist SignatureAlbumin Hduzh410(H) <21 mg/L08/09/2022 2:00 PM EDTMERCY LABORATORIESCreatinine, Ur66.339.0 - 259.0 mg/dL08/09/2022 2:00 PM EDTMERCY LABORATORIESMicroalb/Death Surveys Coder. Gflal686(H)<17 mcg/mg creat08/09/2022 2:00 PM EDTMERCY LABORATORIESSpecimen (Source) Anatomical Location / LateralityCollection Method / VolumeCollection Time Received Time08/09/2022 2:00 PM EDT08/09/2022 3:02 PM EDT Narrative Authorizing ProviderResult TypeResult Patria Serrano MDURINE ORDERABLES Final ResultPerforming OrganizationAddressCity/State/ZIP CodePhone Number [facility] [address] [place] [address], [facility] [phone] [place] [address], [facility] [phone] * HIV Screen (09/03/2021 4:51 PM EDT)ComponentValueRef RangeTest MethodAnalysis TimePerformed AtPathologist SignatureHIV Ag/OqJOJBCCIBVDRFXAXUICGNWK88/01/2022 4:51 PM EDTMERCY LABORATORIESComment: No laboratory evidence of HIV infection. ??If acute HIV infection is suspected, consider testing for HIV-1 RNA. Specimen (Source)Anatomical Location / LateralityCollection Method / Volume Collection TimeReceived TimeBLOOD SPECIMEN / Ksojreq4809/03/2021 4:51 PM EDT 09/03/2021 5:05 PM EDT Narrative Authorizing ProviderResult TypeResult StatusRaeffie Cervantes MDIMMUNOLOGY ORDERABLES Final ResultPerforming OrganizationAddressCity/State/ZIP CodePhone Number [employer] [address] [place] [address], [facility] [phone] * Hepatitis Panel, Acute (09/02/2021 12:25 PM EDT)ComponentValueRef RangeTest MethodAnalysis TimePerformed AtPathologist SignatureHepatitis B Surface Ag ILQMZJXBMOMWWPTOSQPWQC43/30/2022 12:25 PM EDTMERCY LABORATORIESHepatitis C Ab LTVDBSLQSCMFUONBVHPLFF90/30/2022 12:25 PM EDTMERCY LABORATORIESComment: ? The hepatitis C procedure used in our laboratory is a Chemiluminescent test specific for three recombinant HCV antigens. ??A negative anti-HCV result indicates that the antibodies to hepatitis C virus are not present at this time. Individuals with reactive anti-HCV should be considered infected and infectious until proven otherwise. ??Confirmation of all equivocal or reactive results is recommended by ordering HCV RNA by PCR. Hep B Core Ab, JnGLSAEHXPCYSWAMIVQYQWPWC64/30/2022 12:25 PM EDTMERCY LABORATORIESHep A CsTYQELDXXPSZSLISYOWXGEWV70/30/2022 12:25 PM EDTMERCY LABORATORIESSpecimen (Source)Anatomical Location / LateralityCollection Method / VolumeCollection TimeReceived TimeBLOOD SPECIMEN / Dsetsgl9909/02/2021 12:25 PM EDT09/02/2021 12:40 PM EDT Narrative Authorizing ProviderResult TypeResult StatusMartin Serrano MDIMMUNOLOGY ORDERABLESFinal ResultPerforming OrganizationAddressty/State/ZIP CodePhone Number [employer] [address] [place] [address], [facility] [phone] from Last 3 Months or Most Recently Relevant to Health Maintenance Additional Health Concerns InfectionOnset DateLast IndicatedMRSA Comment:- 05/2022 Endotracheal- 08/29/2021/ Insurance Advance Directives TypeDate RecordedPatient RepresentativeExplanationACP-Advance Directive06/07/2022 12:16 PM * Full Code (Latest Code Status on File) Date ActivatedDate InactivatedComments07/25/2022 9:16 AM07/26/2022 2:46 AM * Full Code Date ActivatedDate InactivatedComments06/02/2022 6:25 PM06/06/2022 4:42 PM * Full Code Date ActivatedDate InactivatedComments05/23/2022 12:21 PM06/02/2022 6:24 PM * Full Code Date ActivatedDate InactivatedComments08/29/2021 6:40 AM09/12/2021 5:11 PM * Full Code Date ActivatedDate InactivatedComments08/29/2021 6:40 AM08/29/2021 6:40 AM NameRelationshipHealthcare Agent RelationshipCommunicationNicolle Okeefe Primary Decision Maker* Care Teams Team MemberRelationshipSpecialtyStart DateEnd Date Munira Das, MACHINE PAINT MIXER - [employer] [facility]12/09/21
--- OUTSIDE RECORDS SUMMARY | 2025-03-01 18:31 | XMS_ITS | Patient Health Record ---
Author Organization [facility] vices Address [address] [place], [place] [id number] Care Team Providers Care Cloth Washer Operator Name Role Phone Stephanie Robles Unavailable [phone] Allergies Allergen (clinical drug ingredient) Drug/Non Drug [...] W/U Status Risk Notes Problem Tobacco user (167829490) Cigaret te nicotine dependence without complication (F17.210) ActiveconfirmedProblemBody mass index 40+ - morbidly obese (233233007)BMI 40.0- 44.9, adult (Z68.41)Activeconfirmed Vital Signs Heart Rate 87 /min 01/22/2025 Height-cm162.56 cm01/22/2025lood pressure nszuvhgje44 mm Hg01/22/2025Weight-kg 106.14 kg01/22/20251788Pcsbfg08 in01/22/2025lood pressure jithgadj766 mm Hg 01/22/20252199Sxcccq548 lbs103/24/2024BMI40.16 kg/m201/22/2025 Encounters Encounter Location Date Provider Diagnosis Dental Main [address] [place], [place] [phone] 01/08/2025 [facility] BMI 40.0-44.9, alejandro lt Z68.41 ; Encounter for screening for dental disorders Z13.84 ; Necrosis of pulp K04.1 ; Dental caries into dentine K02.62 ; Encounter for dental examination and cleaning with abnormal findings Z01.21 and Caries of dentin K02.62 [facility] Main [address] [place] [id number] 01/14/2025 [facility] BMI 40.0-44.9, alejandro lt Z68.41 ; Dental caries into dentine K02.62 ; Encounter for dental examination and cleaning with abnormal findings Z01.21 ; Cigarette nicotine dependence without complication F17.210 ; Dietary counseling Z71.3 and Exercise counseling Z71.82 [facility] [address] [place] [id number] 01/22/2025 [facility] Caries of dentin K 02.62 Assessments Encounter Date Diagnosis (ICD Code) Assessment Notes Treatment Notes Treatment Clinical Notes Section Notes 01/22/2025 Caries of dentin (ICD-10 - K02.6 2) 01/14/2025MI 40.0-44.9, adult (ICD-10 - Z68.41)01/08/2025MI 40.0-44.9, adult (ICD-10 - Z68.41)01/14/2025Dental caries into dentine (ICD-10 - K02.62) 01/08/2025Encounter for screening for dental disorders (ICD-10 - Z13.84) 01/08/2025Necrosis of pulp (ICD-10 - K04.1)01/14/2025Encounter for dental examination and cleaning with abnormal findings (ICD-10 - Z01.21)01/14/2025 Cigarette nicotine dependence without complication (ICD-10 - F17.210)Patient provided with [phone] phone line.01/08/2025Dental caries into dentine (ICD-10 - K02.62)01/08/2025Encounter for dental examination and cleaning with abnormal findings (ICD-10 - Z01.21)01/14/2025Dietary counseling (ICD-10 - Z71.3) 01/14/2025Exercise counseling (ICD-10 - Z71.82)01/08/2025aries of dentin (ICD- 10 - K02.62) Plan Of Treatment Next Appt Details Provider Name:Stephanie Lily olivera, 04/02/2025 08:45:00 AM, [address] [place] [address], [phone], Provider Name:Stephaniejesusita Owensveda olivera, 04/09/2025 03:15:00 PM, [address] [place] [address], [phone], Insurance Providers Payer Name Payer Address Payer Phone Subscriber Number Group Number Insured Name Patient Relationship to Insured Coverage Start Date Coverage End Date Jaz Ornelas [address] [place] [phone] [id number] Cydney Ghotraf - patient is the [id number] 2024DMedicaid C after HumanaDentaquestPO [address] [place], [place] [id number], Timothy Self - patient is the insured Medical (General) History Medical History History ICD Code Diabetes Heart Attack and Mini Stroke (2021)Open Heart Surgery (2021)Quadruple Bypass (2021)
--- OUTSIDE RECORDS SUMMARY | 2025-03-01 18:31 | XMS_ITS | Clinical Summary ---
Author Organization [facility] Healthcare Address [address] [place] [address] Care Team Providers Care Pharmacy Salesperson Name Role Phone Unavailable Primary Care Provider [...] in the morning.12/06/2022ctive Active Problems ProblemNoted DateDiagnosed QueeUikjpvjtpvfv01/29/0087Wigxfnmmqyqvoi79/29/2024 Seasonal allergic syoboelj93/29/2024Tongue hawwyd0303/30/2023VA (cerebral vascular accident)03/30/2023Myocardial xyiwxixjil59/25/2024 Family History Medical HistoryRelationNameCommentsDiabetesMotherRelationNameStatusComments Mother Social History Tobacco UseTypesPacks/DayYears UsedDateSmoking Tobacco: FormerCigarettesQuit: mokeless Tobacco: FormerQuit: 2022 Tobacco Cessation:Counseling Given: Not Answered Alcohol UseStandard Drinks/WeekCommentsNot Currently0 (1 standard drink = 0.6 oz pure alcohol)Sex and Gender InformationValueDate RecordedSex Assigned at Not on fileLegal JrfMxzs2703/29/2023 3:45 PM ESTGender IdentityNot on fileSexual OrientationNot on file Last Filed Vital Signs Vital SignReadingTime TakenCommentsBlood Rmpprsro281/9404/03/2023 8:10 AM EST Pulse--Temperature--Respiratory Rate--Oxygen Saturation--Inhaled Oxygen Concentration--Ywljha983 kg (302 lb)04/03/2023 8:10 AM JUEMlgfhy549.6 cm (5' 4 ) 04/03/2023 8:10 AM ESTBody Mass Index51.8404/03/2023 8:10 AM EST Plan of Treatment Not on file Medical Devices ImplantedTypeAreaManufacturerDevice IdentifierShelf Expiration DateModel / Serial / LotCoronary Drug Eluting Stent-07/25/2022 Implanted:Qty: 2 on 07/25/2022oronary Drug Eluting StentHeart Insurance
--- OUTSIDE RECORDS SUMMARY | 2025-03-01 18:31 | XMS_ITS | Clinical Summary ---
Author Organization [facility] Address [id number] [address] [place] [address] Care Team Providers Care Salesperson Art Objects Name Role Phone Luis Felipe Buckner APRN-[employer]ER Primary Care Provider + Allergies Active AllergyReactionsCriticalityNoted DateCommentsFood Allergy Formula 09/01/2021 Watermelon, Honeydew, Cantelope MpohfrEsx79/29/2022upropion LhfXbi7801/26/2022 Increased irritability and insomnia Medications MedicationSigDispense QuantityRefillsLast FilledStart DateEnd DateStatus fluticasone propionate (FLONASE) 50 mcg/actuation nasal spray Indications:Seasonal allergic rhinitis due to pollenAdminister 2 sprays into each nostril in the morning. 15.8 mL ctive EYE ITCH RELIEF 0.025 % (0.035 %) ophthalmic solution INSTILL 1 DROP INTO BOTH EYES TWICE A DAY BWMVVDIE22/21/2022ctive aspirin 81 mg Take 1 tablet (81 [...] Indications:Uncontrolled type 2 diabetes mellitus with hyperglycemia ([facility]) Monitor blood sugars twice daily 60 strip ctive lancets (accu-chek soft touch) [facility] Indications:Uncontrolled type 2 diabetes mellitus with hyperglycemia [place] Monitor blood sugars twice daily 100 each ctive Additional Information Patient not taking.Reported on 12/30/2024 blood-glucose meter (glucose monitoring kit) kit Indications:Uncontrolled type 2 diabetes mellitus with hyperglycemia [place] Use as instructed 1 each 07/12/2022ctive alcohol swabs (ALCOHOL PREP PADS) pads, medicated Indications:Uncontrolled type 2 diabetes mellitus with hyperglycemia ([facility]) Apply 1 Pad topically in the morning and at bedtime. 100 each ctive lancets (TRUEPLUS LANCETS) 33 gauge [facility] 1 Lancet by miscellaneous route in the morning. 90 each ctive blood-glucose sensor (DEXCOM G7 SENSOR) device Indications:Uncontrolled type 2 diabetes mellitus with hyperglycemia ([facility])1 each by miscellaneous route every 10 days.05/10/2023ctive blood-glucose meter,continuous (DEXCOM G7 DOMESTIC HELPER) [facility] Indications:Uncontrolled type 2 diabetes mellitus with hyperglycemia ([facility])1 Device by miscellaneous route in the evening.05/10/2023ctive BD ULTRA-FINE MICRO PEN NEEDLE 32 gauge x 1/4 needle 01/18/2024ctive insulin glargine (LANTUS SOLOSTAR U-100 INSULIN) 100 unit/mL (3 mL) insulin pen Indications:Uncontrolled type 2 diabetes mellitus with hyperglycemia ([facility] Inject 80 Units under the skin nightly. 15 mL 605Active dapagliflozin propanediol (FARXIGA) 10 mg tablet Indications:Type 2 diabetes mellitus with stage 3 chronic kidney disease and hypertension ([facility]take 1 tablet by mouth every morning 90 tablet 5Active dulaglutide (TRULICITY) 1.5 mg/0.5 mL pen injector Indications:Type 2 diabetes mellitus with microalbuminuria, without long-term current use of insulin ([facility]Inject 1.5 mg under the skin every 7 [...] with microalbuminuria, without long-term current use of nfdrnsz4305/05/2023Tongue znmuqi4103/30/2023urrent moderate episode of major depressive bjvfkpum42/23/2024Hyperparathyroidism 11/18/2022Renal cyst06/21/2022 Overview (06/21/2022): 06/21/22: Probable renal cyst 1st detected 2021 on right on ultrasound. Suggested of this on MRI without contrast. Most recent renal ultrasound also suggests probable renal cyst. Definitive testing with MRI with without contrast will confirm. Post-procedural erectile xasofiuetvh59/18/2023 Overview (06/21/2022): 06/21/22: Erectile dysfunction after winter shunt. Could consider penile injection therapy or penileprosthesis. Acute kidney injury superimposed on CKD/02/2023 Overview (06/15/2022): Last Assessment & Plan: IAN (obstructive sleep apnea)/rimary hyperparathyroidism 05/31/2022 Overview (04/19/2023): S/p parathyroidectomy Mar 2023 at [facility] Multiple vessel coronary artery pfrtmyo50/02/2023HHNC (hyperglycemic hyperosmolar nonketotic coma)Morbid knealij5605/23/2022 06/15/2022NSTEMI (non-ST elevated myocardial infarction)/02/2023 Hypertensive zifmuw59ersistent ncymmhkabhq66/04/2022 Overview (01/18/2022): ACR 1300, UPC 0.9 CKD [...] g in October 2022. Kidney biopsy from [facility] 10/21/22, reviewed. 70 glomeruli assessed 13 were obsolescent. 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 Immunofluorescence negative, no inflammatory changes, no endocapillary or extra capillary proliferation. Pathologist feels the kidneys appears end-stage Acute heart ntpmosk9011/24/2021cute kidney qowabu6811/24/2021 Overview (11/24/2021): Secondary to ischemic ATN from sepsis, septic shock, NSAIDs, Bactrim, vancomycin and contrast. Baseline in 2079 was 0.8 peaked up to 2.1 at [facility] in August 2021. On discharge creatinine was down to 1.3. Urine sediment benign. Work-up for immune complex disease negative, paraprotein disease and vasculitis negative as well. Acute pulmonary edema11/24/2021erebral bfzxoydh48/21/2022erebral septic emboli 11/24/20217689Czugrozduqnvp49/21/2022 Overview (11/24/2021): With increased PTH but negative sestamibi scan PTH 141 calcium had gone up to 11.0, on discharge down to 8.6. Pericardial fuybzsgm58/21/2022hinovirus vahbneekh31/21/2022epsis due to Streptococcus species without acute organ acdnqownwuh18/21/2022taphylococcus aureus vezjgmmqj36/21/2022ilated fyjgmdhzrgwuon83/26/2022 Overview (11/24/2021): Ejection fraction 30% compensated CHF Primary utxgjwkbacfs32/26/2022 Overview (11/24/2021): Blood pressures running in the 140-150 systolic range Rcfhmpfcvf52/11/2022cute respiratory failure with vlgznec4108/29/2021ardiac wfxhrhuko34/26/2022riapism, bmoexvfchlo47/27/2016 Encounters DateTypeDepartmentCare UvhyEhsnchxvvil68/18/2025Refill [facility] [address] [place] [address] Vivien Rooney CMA Seasonal allergic rhinitis due to aptdqj7801/02/2025Refill [facility] [address] [place] [address] Princess Grier CMA Anxiety and pfrodoykdd56/29/2025Results Follow-Up [facility] [address] [place] [address] uLis Felipe Buckner, KENNETH-JOSE Trichomonas by PCR, Chlamydia/Gonorrhoeae by PCR, Urine12/30/2024 2:15 PM EDT [facility] [address] [place] [address] Luis Felipe Buckner, KENNETH-JOSE Screen for STD (sexually transmitted disease) (Primary Dx); Type 2 diabetes mellitus with stage 3 chronic kidney disease and hypertension ([facility] Primary hypertension; Loose stools; Moderate episode of recurrent major depressive disorder ([facility] Class 3 severe obesity due to excess calories with serious comorbidity and body mass index (BMI) of40.0 to 44.9 in adult ([facility]12/30/20245106Eqkycc24/26/2025 Ebcyfp8612/24/2024Refill [facility] [address] [place] [address] Jacob Cochran, DO Mixed hyperlipidemiafrom Last 3 [...] friends or relatives?Never01/26/2022How often do you attend gnosticism or methodist services?Never2Do you belong to any clubs or organizations such as gnosticism groups, unions, fraternal or athletic groups, or school groups?No 01/26/2022How often do you attend meetings of the clubs or organizations you belong to?Never01/26/2022re you , , , , never , or living with a partner?Living with jayivry7501/26/2022UDIT-CAnswerDate RecordedQ1: How often do you have a [...] medical care, and heating?Not very hard06/10/2024PHQ-2AnswerDate RecordedTotal Eviau712[facility] [place] of Occupational Health - Occupational Stress QuestionnaireAnswerDate RecordedDo you feel stress - tense, restless, nervous, or anxious, or unable to sleep at night because yourmind is troubled all the time - these days?To some kterzs9001/26/2022Exercise Vital Sign AnswerDate RecordedOn average, how many [...] of a household?No06/10/2024hildcareAnswerDate RecordedDo problems getting child support investigator make it difficult for you to work [...] have received?Associate degree: occupational, technical, or vocational wftapiv4101/26/2022ex and Gender InformationValueDate RecordedSex Assigned at BirthNot on fileLegal SexMale 10/09/2014 12:04 PM EDTGender IdentityNot on fileSexual OrientationNot on file Last Filed Vital Signs Vital SignReadingTime TakenCommentsBlood Jbkycefr103/8212/30/2024 2:25 PM EDT Mmfys138212/30/2024 2:25 PM ZDCHsmpsqrpsim19.1 ??C (97 ??F)12/30/2024 2:25 PM EDT Respiratory Myfh9821 2:25 PM EDTOxygen Qgpvxvgdvw02%12/30/2024 2:25 PM EDTInhaled Oxygen Concentration--Fcvkut306.6 kg (263 lb 9.6 oz)12/30/2024 2:25 PM FMCEdfahm893.1 cm (5' 5 )12/30/2024 2:25 PM EDTBody Mass Index43.8712/30/2024 2:25 PM EDT Plan of Treatment DateTypeDepartmentCare Team (Latest Contact Info)Mmtygjqutez80/27/2026 4:00 PM EDTOffice Visit [facility] [address] [place] [address] Luis Felipe Buckner, ASSOCIATE DENTIST-[employer]ER [address] [place] [address] Health MaintenanceDue DateLast DoneCommentsDiabetic Ophthalmology Exam1984 DTaP,Tdap and Td Vaccines (1 - Tdap)06/29/2003Influenza Gfuwfqc7511/04/2024 01/26/2024iabetic Foot Exam/, 09/12/2022dult BMI Follow Up PlanStatin Use: Wfgjdavvdyriom59/21/202610/Statin Use: Biyqnvoi69/dult BMI Jiociqtiq39/ Depression Qdfagkxas39/Tobacco Oqsuqurwz34 Medical Devices Not on file Procedures Procedure NamePriorityDate/TimeAssociated DiagnosisCommentsCHLAMYDIA/GONORRHOEAE BY PCR, JDGAFLxwelxb00/27/2025 2:56 PM EDT Screen for STD (sexually transmitted disease) TRICHOMONAS BY EFHNdoqgfp96/27/2025 2:56 PM EDT Screen for STD (sexually transmitted disease) from Last 3 Months Results * Chlamydia/Gonorrhoeae by PCR, Urine (12/30/2024 2:56 PM EDT)ComponentValueRef RangeTest MethodAnalysis TimePerformed AtPathologist SignatureGONORRHOEAE PCR, LIcbrcqrvGkbcthxc59/28/2025 11:44 AM [facility] Comment:Neisseria gonorrhoeae not detected by nucleic acid amplification. This does not exclude the possibility of infection because results are dependent on adequate specimen collection.CHLAMYDIA PCR, ARrezwiqkQgpqropd63/28/2025 11:44 AM [facility]:Chlamydia trachomatis not detected by nucleic acid amplification. This does not exclude the possibility of infection because results are dependent on adequate specimen collection. Specimen (Source)Anatomical Location / LateralityCollection Method / Volume Collection TimeReceived TimeUrineUrine / Glbfihx0012/30/2024 2:56 PM EDT 12/30/2024 2:56 PM EDT Narrative Authorizing ProviderResult TypeResult StatusLuis Felipe Buckner APRN-CNPMICROBIOLOGY - GENERAL ORDERABLESFinal ResultPerforming OrganizationAddressCity/State/ZIP CodePhone Number [facility] [address] [place] [address], * Trichomonas by PCR (12/30/2024 2:56 PM EDT)ComponentValueRef RangeTest Method Analysis TimePerformed AtPathologist SignatureTRICHOMONAS PCRNot DetectedNot Thtygdwc60/27/2025 10:26 PM EDTTOLEHOWARD COUNTY COMMUNITY HOSPITAL AND [facility] LABORATORYComment: Trichomonas vaginalis not detected. Assay methodology is nucleic acid amplification by real-time PCR for detection of Trichomonas vaginalis DNA performed on [employer] Instrument System. Specimen (Source)Anatomical Location / LateralityCollection Method / Volume Collection TimeReceived TimeUrineUrine / Nghxcwc4612/30/2024 2:56 PM EDT1 2:56 PM EDT Narrative Authorizing ProviderResult TypeResult StatusLuis Felipe Buckner APRN-CNPMICROBIOLOGY - GENERAL ORDERABLESFinal ResultPerforming OrganizationAddressCity/State/ZIP CodePhone Number [facility] [address] [place] [address], from Last 3 Months Insurance Care Teams Team MemberRelationshipSpecialtyStart DateEnd Date Luis Felipe Buckner APRN-[employer]ER [address] [facility] [place] [address] (work) PCP - GeneralInternal Thoowmii10/27/25
--- OUTSIDE RECORDS SUMMARY | 2025-03-01 18:31 | XMS_ITS | Clinical Summary ---
Author Organization [facility] Address [address] [id number] Care Team Providers Care Block Trader Name Role Phone Phys, Self-Refer Or No Pcp/Referring Primary Car e Provider Unavailable Social History Tobacco UseTypesPacks/DayYears UsedDateSmoking Tobacco: Never AssessedSex and Gender InformationValueDate RecordedSex Assigned at BirthNot on fileLegal Sex Male11/09/2022 9:49 AM EDTGender IdentityNot on fileSexual OrientationNot on file Plan of Treatment Health MaintenanceDue DateLast DoneCommentsHepatitis C Ybiemwgdq57/25/1985 DTaP,Tdap,and Td Vaccines (1 - Tdap)06/29/2003Hepatitis B [...] Phys, Self-Refer Or No Pcp/Referring PCP - Oxsufda19/11/24
--- OUTSIDE RECORDS SUMMARY | 2025-03-01 18:33 | XMS_ITS | CCD ---
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 Name Role Phone NO FAMILY, PHYSICIAN Primary Care Provider VANESA Hoover Emergency Provider [phone] Unavailable Primary Care Provider Unavailabl e Unavailable Primary Care Provider UnavailBasilio Santoro Attending Unavailable Basilio Sam Admitting Unavailable NO FAMILY, PHYSICIAN Primary Care Unavailable RAUL PARSONS Admitting Unavailable DR ZOE MONTERO Consulting Unavailabl e JUAN, DR BLANTON LISTED Primary Care Unavaila RAUL Andrews Attending Unavailable RAUL PARSONS Consulting Unavailable LION ZHU Consulting Unavailable Thiago DIRECTOR PRODUCT - SINGLE WIRE SAW OPERATOR, Jose Alonso Primary Care Prov ider Thiago DIRECTOR PRODUCT - SINGLE WIRE SAW OPERATOR, Jose Alonso Primary Care Prov ider ARIEL [...] JOSE KHANNA Primary Care Unavailable Khanna DIRECTOR PRODUCT-SINGLE WIRE SAW OPERATOR, Jose J Primary Care Provid er PRATEEK ESQUIVEL Referring Unavailable KHANNA, JOSE J Primary Care Unavailable KHANNA, JOSE J Primary Care Unavailable ROSLYN BLANCAS Attending Unavailable KHANNA, JOSE J Referring Unavailable KHANNA, JOSE J Primary Care Unavailable Khanna DIRECTOR PRODUCT-JOSE, Jose J Primary Care Provid er Unavailable [...] OnsetReaction(s) Facility (3 sources)Melon; Translations: [melon]Allergy to [id number] [facility] ([facility] sources)tomato allergenic extract; Translations: [tomato]Drug Allergy 42-18-2799Yjmwdtqy of [facility] (20 sources)FOODPropensity to adverse reactions to pzgj50-69-6158[facility] (20 sources)buPROPion; Translations: [BUPROPION HCL]Drug Vgkgauh85-73-7864 [facility] Work Phone: (20 sources)Food Allergy Formula; Translations: [FOOD ALLERGY FORMULA]Propensity to adverse reactions to hzwu96-61-4724[facility] Medications Current Medications MedicationDrug Class(es)DatesSig (Normalized)Sig (Original)acetaminophen 325 mg / oxyCODONE hydrochloride 5 mg oral tablet (2 sources)Opioid AgonistStart: 06-06-2022 End: 67-15-4968Wilfl: 02-02-2016 End: 32-29-3782524 ml albumin human, fdc 50 mg/ml injection (2 sources)Human Serum AlbuminStart: 33-39-965855 g, IntraVENous, at 500 mL/hr, Administer over 60 Minutes, PRN, Other, PAD below goal and Low CI and/or Low BP and /or Low urine output per hemodynamic goals, Starting on Kathy 06/02/22 at 1824 Up to a max of 2000 mL. Notify surgeon for further orders if max volume infused. Post-opStart: 13-42-362149 g, IntraVENous, PRN, Starting on Kathy 06/02/22 [...] oral tablet (15 sources)Atypical AntipsychoticStart: 09-12-2022 End: 66-31-5887bsyg 1 tablet by mouth in the morningARIPiprazole (ABILIFY) 5 mg tablet Indications: Mixed anxiety and depressive disorder Take 1 tablet(5 mg total) by mouth in the morning. 90 tablet 1 03/08/2023 Activeaspirin 81 mg delayed release oral tablet (20 sources)Platelet Aggregation Inhibitor, Nonsteroidal Anti-inflammatory Drug Start: 26-34-6017rwmm 1 tablet by mouth in the morningaspirin 81 mg Take 1 tablet (81 mg total) by mouth in the morning. 06/07/2022 ActiveStart: 05-24-2022 End: 94-35-2460enxu 1 dose by mouth once81 mg, Oral, ONCE, 1 dose, On Kathy 06/02/22 at 2115atorvastatin 80 mg oral tablet (20 sources)HMG-CoA Reductase InhibitorStart: 01-01-2024 End: 77-12-2273zpzr 1 tablet by mouth once dailyatorvastatin (LIPITOR) 80 mg tablet Indications: Mixed hyperlipidemia TAKE 1 TABLET BY MOUTH NIGHTLY 90 tablet 12/24/2024 ActiveStart: 12-19-2022 End: 08-00-2753empf 1 tablet by mouth once dailyatorvastatin (LIPITOR) 80 mg tablet Indications: Mixed hyperlipidemia Take 1 tablet (80 mg total) by mouth nightly. 90 tablet 2 11/23/2023 ActiveStart: 34-63-8522oiyy 1 tablet by mouth once dailyatorvastatin (LIPITOR) 20 MG tablet Take 1 tablet by mouth nightly 30 tablet 3 06/30/2022 ActiveStart: 90-96-6349Ljkhn: 98-42-1358wtso 20 mg by mouth once daily20 mg, Oral, NIGHTLY, First dose on Mon06/03/22 at 2100, Until Discontinued Please hold for elevated liver function enzymes Post-opStart: 05-23-2022 End: 46-66-1609bzjd 80 mg by mouth once daily80 mg, Oral, NIGHTLY, First dose on Mon05/23/22 at 2100, Until Discontinuedblood-glucose meter (glucose monitoring kit) kit (20 sources)Start: 33-44-6877uwkxq-glucose meter (glucose monitoring kit) kit Indications: Uncontrolled type 2 diabetes mellituswith hyperglycemia (CMS-HCC) Use as instructed 1 each 07/12/2022 ActiveStart: 15-66-5097yrjco-glucose meter (glucose monitoring kit) kit Indications: Uncontrolled type 2 diabetes mellitus with hyperglycemia (CMS-HCC) Use as instructed 1 each 0 07/12/2022 Activeblood- glucose meter,continuous (DEXCOM G7 STUDENT NURSE) misc (20 sources)Start: 54-94-7322nqqca-glucose meter,continuous (DEXCOM G7 STUDENT NURSE) misc Indications: Uncontrolled type 2 diabetes mellitus with hyperglycemia (CMS- HCC) 1 Device by miscellaneous route in the evening. 05/10/2023 ActiveStart: 93-40-6377plyht-glucose meter,continuous (DEXCOM G7 STUDENT NURSE) misc Indications: Uncontrolled type 2 diabetes mellitus with hyperglycemia (CMS-HCC) 1 Device by miscellaneous route in the evening. 0 05/10/2023 Activeblood-glucose sensor (DEXCOM G7 SENSOR) device (20 sources)Start: 73-36-8985kgikt-glucose sensor (DEXCOM G7 SENSOR) device Indications: Uncontrolled type 2 diabetes mellitus with hyperglycemia (CMS-HCC) 1 each by miscellaneous route every 10 days. 05/10/2023 ActiveStart: 05-10-2023 blood-glucose sensor (DEXCOM G7 SENSOR) device Indications: Uncontrolled type 2 diabetes mellitus with hyperglycemia (CMS-HCC) 1 each by miscellaneous route every 10 days. 0 05/10/2023 Activecalcium carbonate 500 mg chewable tablet (5 sources)Start: 04-11-2023 End: 31-15-5588boevxpe carbonate (ANTACID, CALCIUM CARBONATE,) 200 mg elemental (500 mg) chewable tablet Chew 5 tablets (1,000 mg total) and swallow. 0 04/11/2023 05/11/2023 ActiveStart: 05-28-2022 End: 38-46-8838fmob 500 mg by mouth three times daily as needed for gastroesophageal reflux edcybjl562 mg, Oral, 3 TIMES DAILY PRN, Starting on 05/28/22 at 1517, Until Kathy 06/02/22 at 1824, Heartburncalcium carbonate 1250 mg / cholecalciferol 200 unt oral tablet (12 sources)Vitamin DStart: 20-19-0482tkot 2 tablets by mouth in the morning, then take 2 tablets by mouth once in the evening, then take2 tablets by mouth at bedtimeCalcium Carb-Cholecalciferol (Oyster Shell Calcium w/D) 500-5 MG-MCG tablet Take 2 tablets by mouthin the morning and 2 tablets in the evening and 2 tablets before bedtime. 02/23/2023 ActiveStart: 02-23-2023 End: 49-34-5897chsa 2 tablets by mouth oncecalcium carbonate-vitamin D3 (OSCAL 500 + D) 500 mg(1,250mg) -200 units per tablet Take 2 tablets by mouth. 02/23/2023 11/23/2023 Discontinued (Therapy completed)Start: 09-04-2021 End: 12-98-0021aaju 1 tablet by mouth once daily1 tablet, Oral, DAILY, First dose on 09/04/21 at 1030, Until Discontinued Per og .cariprazine 1.5 mg oral capsule (20 sources)Atypical AntipsychoticStart: 05-10-2023 End: 10-14-3166besc 1 capsule by mouth once daily in the morningcariprazine (VRAYLAR) 1.5 mg capsule Indications: Moderate episode of recurrent major depressive disorder (CMS-HCC) Take 1 capsule (1.5 mg total) by mouth every morning. TAKE 1 CAPSULE BY MOUTH IN THE MORNING 30 capsule 5 12/30/2024 Active Start: 12-16-2022 End: 54-96-4947sqkf 1 capsule by mouth in the morningcariprazine (VRAYLAR) 1.5 mg capsule Indications: Anxiety and depression Take 1 capsule (1.5 mg total) by mouth in the morning. 30 capsule 3 12/16/2022 03/08/2023 Discontinued (Therapy completed)carvedilol 25 mg oral tablet (20 sources)alpha-Adrenergic Ubaldo, beta-Adrenergic BlockerStart: 09-28-2021 End: 34-62-8935khad 1 tablet by mouth in the morningcarvedilol (Coreg) 25 MG tablet Take 25 mg by mouth in the morning and 25 mg in the evening. Take with meals. 05/10/2022 ActiveStart: 09-09-2021 End: 94-38-3806fhdq 1 tablet by mouth twice dailycarvedilol (COREG) 12.5 MG tablet Take 1 tablet by mouth 2 times daily 60 tablet 3 09/12/2021 ActiveStart: 09-08-2021 End: 90-71-4716ikij 25 mg by mouth twice daily at mg, Oral, 2 TIMES DAILY, First dose (after last modification) on Mon09/08/21 at 1000, Until Discon tinued Administer with food to minimize the risk of orthostatic hypotension Start: 09-07-2021 End: 73-00-9337bufd 12.5 mg by mouth twice daily at zpiopnuf32.5 mg, Oral, 2 TIMES DAILY, First dose (after last modification) on Mon09/07/21 at 2100, Until Discontinued Administer with food to minimize the risk of orthostatic hypotensionStart: 08-30-2021 End: 27-60-3789fiff 6.25 mg by mouth twice daily at mealtime6.25 mg, Oral, 2 TIMES DAILY, First dose (after last modification) on Mon09/07/21 at 0715, Until Discontinued Administer with food to minimize the risk of orthostatic hypotensioncefTRIAXone (ROCEPHIN) infusion (15 sources)Start: 09-13-2021 End: 29-55-2235qwtb 2000 mg intravenously every twenty-four hourscefTRIAXone (ROCEPHIN) infusion Infuse 2,000 mg intravenously every 24 hours for 16 days Compound per protocol 32 g 0 09/13/2021 09/29/2021 Activecephalexin 500 mg oral capsule (2 sources)Cephalosporin AntibacterialStart: 09-20-2023 End: 92-49-3278dbpf 1 capsule by mouth in the morning, then take 1 capsule by mouth at bedtimeCEPHalexin (KEFLEX) 500 mg capsule Indications: Folliculitis Take 1 capsule (500 mg total) by mouthin the morning and 1 capsule (500 mg total) before bedtime. Do all this for 10 days. 20 capsule 09/20/2023 09/30/2023 ActiveStart: 02-02-2016 End: 09-42-8311eisdqqfntm hydrochloride 10 mg oral tablet (20 sources)Histamine-1 Receptor AntagonistStart: 07-12-2022 End: 94-45-0193sovj 1 tablet by mouth in the morningcetirizine (ZyrTEC) 10 mg tablet Indications: Seasonal allergic rhinitis due to pollen TAKE 1 TABLET BY MOUTH IN THE MORNING 30 tablet 6 06/17/2024 Activecetirizine (ZyrTEC) 10 MG chewable tablet Chew Daily Activecholecalciferol 0.125 mg oral capsule (8 sources)Vitamin DStart: 42-24-1241dvvy 1 capsule by mouth in the morningRA Vitamin D-3 125 MCG (5000 UT) capsule Take 1 capsule by mouth in the morning. 06/15/2022 ActiveCholecalciferol (VITAMIN D3) 125 MCG (5000 UT) TABS Take 1 tablet by mouth 0 Activeclopidogrel 75 mg oral tablet (20 sources)P2Y12 Platelet InhibitorStart: 37-86-6834qvbj 1 tablet by mouth in the morningclopidogreL (PLAVIX) 75 mg tablet Take 1 tablet (75 mg total) by mouth in the morning. 06/07/2022 Activedapagliflozin 10 mg oral tablet (20 sources)Sodium-Glucose Cotransporter 2 InhibitorStart: 12-16-2022 End: 34-39-6618rcuzboaxbqruz propanediol (FARXIGA) 10 mg tablet Indications: Type 2 diabetes mellitus with stage 3chronic kidney disease and hypertension ([facility]) take 1 tablet by mouth every morning 90 tablet 1 06/10/2024 Active0.5 ml dulaglutide 3 mg/ml auto-injector (17 sources)GLP-1 Receptor AgonistStart: 41-03-3695xnljixixuwu (TRULICITY) 1.5 mg/0.5 mL pen injector Indications: Type 2 diabetes mellitus with microa lbuminuria, without long-term current use of insulin ([facility]) Inject 1.5 mg under the skin every 7days. 2 mL 4 07/10/2024 ActiveStart: 06-10-2024 End: 34-79-8165azaazqsirmf (TRULICITY) 0.75 mg/0.5 mL pen injector Indications: Uncontrolled type 2 diabetes mellitus with hyperglycemia ([facility]) Inject 0.5 mL (0.75 mg total) under the skin every 7 days. 2 mL 06/10/2024 07/10/2024 Discontinued (Therapy completed)Start: 03-08-2023 End: 65-49-7437fdvuqrfuyfv (TRULICITY) 1.5 mg/0.5 mL pen injector Indications: Type 2 diabetes mellitus with microalbuminuria, without long-term current use of insulin ([facility]) Inject 1.5 mg under the skin every 7days. 2 mL 3 03/08/2023 04/19/2023 Discontinued (Therapy completed)Start: 12-16-2022 End: 88-72-0920uamyzsuerfg (TRULICITY) 0.75 mg/0.5 mL pen injector Indications: Type 2 diabetes mellitus with microalbuminuria, without long-term current use of insulin ([facility]) , Dilated cardiomyopathy ([facility]) Inject 0.5 mL (0.75 mg total) under the skin every 7 days. 2 mL 3 12/16/2022 03/08/2023 Discontinued inject 1.5 mg by subcutaneous injection every weekdulaglutide (Trulicity) 1.5 MG/0.5ML solution pen-injector Inject 1.5 mg under the skin 1 (one) time per week ActiveFLUoxetine 20 mg oral capsule (20 sources)Serotonin Reuptake InhibitorStart: 47-68-7500ouip 1 capsule by mouth in the morningFLUoxetine (PROzac) 20 mg capsule Indications: Anxiety and depression Take 1 capsule (20 mg total) by mouth in the morning. 90 capsule 1 01/03/2025 ActiveStart: 12-16-2022 End: 48-11-9124ftrx 1 capsule by mouth in the morningFLUoxetine (PROzac) 20 mg capsule Indications: Anxiety and depression Take 1 capsule (20 mg total) by mouth in the morning. 90 capsule 1 06/10/2024 01/02/2025 Discontinued (Reorder) Start: 05-23-2022 End: 09-60-6853hiyn 10 mg by mouth once daily10 mg, Oral, DAILY, First dose on Mon05/23/22 at 1230, Until Discontinuedtake 2 tablets by mouth once daily FLUoxetine (PROZAC) 10 MG tablet Take 2 tablets by mouth daily 0 Activetake 1 tablet by mouth once dailyFLUoxetine (PROZAC) 10 MG tablet Take 1 tablet by mouth daily 0 Olqlrq2040 ml glucose 100 mg/ml injection (3 sources)Start: 14-86-6160vooj 1 mL intravenously every hourIntraVENous, at 100 [...] 60 minutes, discontinue dextrose 10% infusion. Post-opStart: 36-23-869210 g (4 tablet), Oral, PRN, Starting on [...] THAN 70 mg/dL,notify provider. Post-opStart: 09-07-2021 End: 68-04-7990NekllYLHobp, at 50 mL/hr, CONTINUOUS, Starting on Mon09/07/21 at 96746 ml insulin detemir 100 unt/ml pen injector (20 sources)Insulin AnalogStart: 05-17-1649yufhexj detemir U-100 (LEVEMIR FLEXPEN) 100 unit/mL (3 mL) insulin pen Indications: Type 2 diabetesmellitus with microalbuminuria, without long-term current use of insulin ([facility]) Inject 35 Units under the skin nightly. 15 mL 1 01/16/2024 ActiveStart: 07-18-2023 End: 01-62-4248drzywfe detemir U-100 (LEVEMIR FLEXPEN) 100 unit/mL (3 mL) insulin pen Indications: Type 2 diabetesmellitus with microalbuminuria, without long-term current use of insulin ([facility]) Inject 20 Units under the skin nightly. 15 mL 1 11/23/2023 ActiveStart: 05-05-2023 End: 18-57-2765mvslhn 10 [IU] by subcutaneous injection once dailyinsulin detemir U-100 (LEVEMIR FLEXPEN) 100 unit/mL (3 mL) insulin pen Inject 10 Units under the skin nightly. 15 mL 1 05/05/2023 07/18/2023 Discontinued (Reorder)3 ml insulin glargine 100 unt/ml pen injector (20 sources)Insulin AnalogStart: 04-00-4457lxjkfkk glargine (LANTUS SOLOSTAR U- 100 INSULIN) 100 unit/mL (3 mL) insulin pen Indications: Uncontrolled type 2 diabetes mellitus with hyperglycemia ([facility]) Inject 80 Units under the skin nightly.15 mL 6 06/10/2024 ActiveStart: 04-03-2024 End: 06-34-1707buasfdo glargine (LANTUS SOLOSTAR U-100 INSULIN) 100 unit/mL (3 mL) insulin pen Indications: Type 2diabetes mellitus with microalbuminuria, without long-term current use of insulin ([facility]) Inject 70 Units under the skin nightly. 15 mL 6 04/03/2024 06/10/2024 Discontinued (Reorder)Start: 02-21-2024 End: 24-89-3173ekwthzf glargine (LANTUS SOLOSTAR U-100 INSULIN) 100 unit/mL (3 mL) insulin pen Indications: Type 2diabetes mellitus with microalbuminuria, without long-term current use of insulin ([facility]) Inject 35 Units under the skin nightly. 15 mL 12 02/21/2024 04/03/2024 Discontinued (Reorder)Start: Units (rounded from 19.035 Units = 0.15 Units/kg 126.9 kg), SubCUTAneous, NIGHTLY, First dose onFri 06/03/22 at 2100, Until Discontinued Hold if BG is less than 160. If patient is NOT diabetic discontinue order. If patient takes Lantus at home - notify CTS team. Post-opStart: 06-01-2022 End: 15-48-0750ldehuj 1 dose by subcutaneous injection once10 Units, SubCUTAneous, ONCE, 1 dose, On Mon06/01/22 at 1315Start: 05-30-2022 End: 48-30-0539mffjij 50 [IU] by subcutaneous injection twice daily50 Units, SubCUTAneous, 2 times daily, First dose (after last modification) on 05/30/22 at 2100,Until DiscontinuedStart: 05-29-2022 End: 35-44-0390duyswm 45 [IU] by subcutaneous injection twice daily45 Units, SubCUTAneous, 2 times daily, First dose (after last modification) on 05/29/22 at 2100,Until DiscontinuedStart: 05-28-2022 End: 46-62-3131xylhgt 40 [IU] by subcutaneous injection twice daily40 Units, SubCUTAneous, 2 times daily, First dose (after last modification) on 05/28/22 at 2100,Until DiscontinuedStart: 05-24-2022 End: 57-81-5260krgylr 30 [IU] by subcutaneous injection twice daily30 Units, SubCUTAneous, 2 times daily, First dose on 05/24/22 at 1130, Until DiscontinuedStart: 05-23-2022 End: 07-82-258298 Units (rounded from 25.4 Units = 0.2 Units/kg 127 kg), SubCUTAneous, NIGHTLY, First dose (after last modification) on Mon05/23/22 at 1645, Until Discontinuedisopropyl alcohol 0.7 ml/ml medicated pad (20 sources)Start: 93-35-6905badlrim swabs (ALCOHOL PREP PADS) pads, medicated Indications: Uncontrolled type 2 diabetes mellitus with hyperglycemia ([facility]) Apply 1 Pad topically in the morning and at bedtime. 100 each 6 07/12/2022 Activeketotifen 0.25 mg/ml ophthalmic solution (20 sources)Histamine-1 Receptor InhibitorStart: 55-09-2037jcyl 1 drop(s) into the eye(s) twice dailyEYE ITCH RELIEF 0.025 % (0.035 %) ophthalmic solution INSTILL 1 DROP INTO BOTH EYES TWICE A DAY DIRECTED 11/24/2021 Active lisinopril 5 mg oral tablet (20 sources)Angiotensin Converting Enzyme InhibitorStart: 01-10-2023 End: 71-78-8079dbab 1 tablet by mouth in the morninglisinopriL (PRINIVIL,ZESTRIL) 5 mg tablet Indications: Primary hypertension Take 1 tablet (5 mg total) by mouth in the morning. 90 tablet 1 12/30/2024 ActiveStart: 12-06-2022 End: 23-81-3992yrie 1 tablet by mouth in the morninglisinopril 2.5 MG tablet Take 2.5 mg by mouth in the morning. 12/06/2022 Activetake 1 tablet by mouth once dailylisinopril (PRINIVIL;ZESTRIL) 5 MG tablet Take 1 tablet by mouth daily 0 Activeloperamide hydrochloride 2 mg oral capsule (8 sources)Opioid AgonistStart: 08-12-2024 End: 98-92-5815qgdl 1 capsule by mouth four times daily as needed for diarrhea loperamide (IMODIUM) 2 mg capsule Indications: Loose stools Take 1 capsule (2 mg total) by mouth 4 (four) times a day as needed for diarrhea. 30 capsule 12/30/2024 ActiveStart: 08-09-2024 End: 57-33-5771mjgc 1 tablet by mouth four times daily as needed for diarrhea loperamide (IMODIUM A-D) 2 mg tablet Indications: Loose stools Take 1 tablet (2 mg total) by mouth 4 (four) times a day as needed for diarrhea. 30 tablet 08/09/2024 08/12/2024 Discontinued (Therapy completed)24 hr loratadine 10 mg / pseudoephedrine sulfate 240 mg extended release oral tablet (18 sources)alpha-Adrenergic AgonistStart: 67-94-8677raoy 1 tablet by mouth once daily at bedtime, then take 1 tablet by mouth every twenty-four hours Loratadine-Pseudoephedrine (Loratadine-D) 10-240 mg Tablet Extended Release 24 Hr Active 1 TAB PO Daily at bedtime August 28, 2021 7:13pmtake 10-240 mg by mouth onceloratadine-pseudoephedrine (CLARITIN-D 24 HOUR) 10-240 MG per extended release tablet Take 1 tabletby mouth daily 0 Ymjlbg10 ml magnesium sulfate 40 mg/ml injection (1 [...] 25 mg oral tablet (20 sources)beta-Adrenergic BlockerStart: 04-14-2911aqfk 1 tablet by mouth in the morning, [...] ONCE, 1 dose, On 09/06/21 at 1645Start: 63-88-8014ltby 50 mg by mouth once dailyMetoprolol Succinate Active 50 MG PO Daily August 28, 2021 7:13pmtake 1 tablet by mouth every twenty-four hours in the morningmetoprolol succinate XL (Toprol-XL) 25 MG 24 hr tablet Take 25 mg by mouth in the morning. Do not crush or chew.. Activemupirocin 0.02 mg/mg topical ointment (3 sources)RNA Synthetase Inhibitor AntibacterialStart: 06-02-2022 End: 90-40-1451enzf 1 dose nasal route twice dailyEach Nostril, 2 TIMES DAILY, First dose on Mon06/02/22 at 2100, For 10 doses, Post-opStart: 05-30-2022 End: 37-38-2773qoxh 1 dose nasal route twice dailyEach Nostril, 2 TIMES DAILY, First dose on Mon05/31/22 at 2345, For 10 dosespantoprazole 40 mg delayed release oral tablet (3 sources)Proton Pump InhibitorStart: 05-26-2022 End: 79-07-3650hhtsszvjkabe glycol 3350 15512 mg powder for oral solution (4 sources)Osmotic LaxativeStart: 06-02-2022 End: 78-95-5628dzxp 17 g by mouth once daily as needed for constipation polyethylene glycol (GLYCOLAX) 17 g packet Take 17 g by mouth daily as needed for Constipation 527 g 0 06/06/2022 07/06/2022 ActiveStart: g, Oral, DAILY PRN, Starting on Mon08/29/21 at 0640, Until Discontinued, Constipation First linetherapy for ypvoeuuouwbt97 ml potassium chloride 0.4 meq/ml injection (2 [...] semaglutide 1.34 mg/ml pen injector (1 source)Start: 36-31-6592yciqtcdrxnv (OZEMPIC) 0.25 mg or 0.5 mg(2 mg/1.5 mL) pen injector Indications: Type 2 diabetes mellitus with microalbuminuria, without long-term current use of insulin ([facility]) Inject 0.5 mg under the skin every 7 days. 1.5 mL 2 07/18/2023 Activetamsulosin hydrochloride 0.4 mg oral capsule (6 sources)alpha-Adrenergic BlockerStart: 06-07-2022 End: 44-14-2586malp 1 capsule by mouth once dailytamsulosin (FLOMAX) 0.4 MG capsule Take 1 capsule by mouth daily 30 capsule 0 06/30/2022 ActiveStart: 82-27-6948bgje 0.4 mg by mouth once daily0.4 mg, [...] unless specifically ordered. Post-op [Order 2 End]Start: 64-42-8128hpkq 1 tablet by mouth every four hours [...] Kathy 09/09/21 at 1630, For 1 doseStart: 28-22-2589sjmo 100 mg intravenously every twenty-four hours2,000 mg, IntraVENous, EVERY 24 HOURS, First dose on Mon09/06/21 at 1315, Until Discontinued Antimicrobial Indications: Bloodstream Infection Administer as slow IV Push over 5 mins R econstitute 2 g vials with 19.2 mL of designated diluent to produce a 100mg/mL solutionStart: 09-02-2021 End: 50-07-3640gpxr 1 dose intravenously every twelve rqziq820 mg (3.39 mg/kg), IntraVENous, at 50 mL/hr, Administer over 1 Hours, EVERY 12 HOURS, First dose on Kathy 09/02/21 at 1400 Administer by slow IV infusion over 60 minutes.Start: 08-30-2021 End: 49-78-6673lsrq 20 mL intravenously every hour2,000 mg, IntraVENous, [...] minutes to goal of therapy.Start: 08-29-2021 End: 81-15-3292lmby 20 mg intravenously twice daily20 mg, IntraVENous, [...] Mucolytic, Antidote for Acetaminophen OverdoseStart: 05-26-2022 End: 08-94-2648qiwf 1 dose by mouth apnf614 mg, Oral, ONCE, 1 dose, On Mon05/26/22 at 2300Start: 05-26-2022 End: 77-46-1641667 mg, Oral, 2 TIMES DAILY, 4 doses, First dose on Mon05/26/22 at 0100, Last dose on Mon05/27/22 at 0900albuterol 0.833 mg/ml / ipratropium bromide 0.167 mg/ml inhalation solution (1 source)Anticholinergic, beta2-Adrenergic AgonistStart: ampule, Inhalation, EVERY 4 HOURS PRN, Starting on Mon06/02/22 at 1824, Until Discontinued, Shortness of Breath Initiate RT Bronchodilator Protocol: Yes Post-opamiodarone hydrochloride 200 mg oral tablet (20 sources)AntiarrhythmicStart: 08-22-2022 End: 65-86-5128mtss 1 tablet by mouth in the morningamiodarone (PACERONE) 200 mg tablet Take 1 tablet (200 mg total) by mouth in the morning. 08/22/2022 07/18/2023 Discontinued (Therapy completed)Start: 06-04-2022 End: 85-67-3085sbrv 1 tablet by mouth twice dailyamiodarone (CORDARONE) 200 MG tablet Take 1 tablet by mouth 2 times daily 60 tablet 0 06/30/2022 ActiveStart: 05-30-2022 End: 72-41-0077ppsp 200 mg by mouth three times omwea881 mg, Oral, 3 TIMES DAILY, First dose on Mon06/02/22 at 2100, Until Discontinued Hold for QTC grea ter than 500 and HR less than 60. Post-opamLODIPine 10 mg oral tablet (1 source)Dihydropyridine Calcium Channel BlockerStart: 09-08-2021 End: 32-54-1412fhng 10 mg by mouth once daily10 mg, Oral, DAILY, First dose on Mon09/08/21 at 0615, Until Discontinuedbisacodyl 10 mg rectal suppository (2 sources)Stimulant LaxativeStart: 66-40-0131ktsi 10 mg rectal route once daily as mg, Rectal, DAILY PRN, Starting on Mon06/02/22 at 1824, Until Discontinued, Constipation Second line therapy for constipation, After 24 hours, if no result from first line PRN therapy, give secondline therapy in combination with first line therapy. Post-opStart: 63-72-0867tbih 10 mg rectal route once daily as ufaogz00 mg, Rectal, DAILY PRN, Starting on Mon09/05/21 at 1838, Until Discontinued, Constipationcalcium chloride 0.0014 meq/ml / potassium chloride 0.004 meq/ml / sodium chloride 0.103 meq/ml / sodium lactate 0.028 meq/ml injectable solution (1 source)Start: 05-23-2022 End: 84-70-9098YsuqyFFKbgc, at 100 mL/hr, CONTINUOUS, Starting on Mon05/23/22 at 1230cefdinir 300 mg oral capsule (1 source)Cephalosporin AntibacterialStart: 04-24-2023 End: 63-41-3316twlz 1 capsule by mouth twice dailycefDINIR (OMNICEF) 300 mg capsule take 1 capsule by mouth twice a day for 10 days 0 04/24/2023 05/05/2023 Discontinued (Therapy completed)cefTRIAXone (ROCEPHIN) 2,000 mg in dextrose 5 % 50 mL IVPB mini-bag (1 source)Start: 09-28-2021 End: 97-66-0515whnZXWIRwoi (ROCEPHIN) 2,000 mg in dextrose 5 % 50 mL IVPB mini-bagcefTRIAXone (ROCEPHIN) 2,000 mg in sterile water 20 mL IV syringe (1 source)Start: 09-13-2021 End: 29-78-8558rpnUJYNEsqj (ROCEPHIN) 2,000 mg in sterile water 20 mL IV syringe cefTRIAXone (ROCEPHIN) 2000 mg IVPB in D5W 50ml minibag (11 sources)Start: 09-25-2021 End: 67-48-9992izkXWQDBwjy (ROCEPHIN) 2000 mg IVPB in D5W 50ml minibagStart: 09-24-2021 End: 79-65-1191kmhRLCXXdhq (ROCEPHIN) 2000 mg IVPB in D5W 50ml minibagStart: 09-23-2021 End: 47-77-1700mpjFFJTQjlx (ROCEPHIN) 2000 mg IVPB in D5W 50ml minibagStart: 09-22-2021 End: 97-63-8733dfjZMWQPlmw (ROCEPHIN) 2000 mg IVPB in D5W 50ml minibagStart: 09-21-2021 End: 26-74-9544nwvHROOWzio (ROCEPHIN) 2000 mg IVPB in D5W 50ml minibagStart: 09-20-2021 End: 79-19-4092ybkADHRMpiy (ROCEPHIN) 2000 mg IVPB in D5W 50ml minibagStart: 09-19-2021 End: 02-90-1179pkzLPADVdeg (ROCEPHIN) 2000 mg IVPB in D5W 50ml minibagStart: 09-18-2021 End: 50-44-4517exvUOKRLkei (ROCEPHIN) 2000 mg IVPB in D5W 50ml minibagStart: 09-17-2021 End: 45-85-0786xynTADJKwwt (ROCEPHIN) 2000 mg IVPB in D5W 50ml minibagStart: 09-15-2021 End: 39-81-2814qzsYCKYPjrf (ROCEPHIN) 2000 mg IVPB in D5W 50ml minibagStart: 09-14-2021 End: 66-25-5243kzaITSBNwzm (ROCEPHIN) 2000 mg IVPB in D5W 50ml minibag chlorhexidine gluconate 1.2 mg/ml mouthwash (2 sources)Start: 05-30-2022 End: 21-68-4530zrzd 1 dose by mouth once15 mL, Mouth/Throat, ONCE, 1 dose, On Mon05/30/22 at 2045 Morning of surgery Pre-op (day of surgery)Start: 05-30-2022 End: 46-40-0924Xivbduy, SEE ADMIN INSTRUCTIONS, Starting on Mon05/30/22 at 2019, For 2 doses Night prior to surgery and after hair clipping morning of surgery Pre-op (day of surgery)cinacalcet 30 mg oral tablet (14 sources)Calcium-sensing Receptor AgonistStart: 12-06-2022 End: 58-01-6068vsvjafrbvr (SENSIPAR) 30 mg tablet Take 1 tablet (30 mg total) by mouth. 12/06/2022 07/18/2023 Discontinued (Therapy completed)100 ml dexmedetomidine 0.004 mg/ml injection (1 source)Central alpha-2 Adrenergic AgonistStart: 09-03-2021 End: 48-13-5688iaei 2.9-43.4 mL intravenously every hour0.1-1.5 mcg/kg/hr 115.6 [...] mg oral tablet (1 source)Histamine-1 Receptor AntagonistStart: 02-53-5889lkrp 25 mg by mouth once daily as mg, Oral, NIGHTLY PRN, Starting on Mon06/03/22 at 0000, Until Discontinued, Sleep, Post-opdocusate sodium 100 mg oral capsule (1 source)Start: 02-02-2016 End: 89-97-7240qenycbgc sodium 50 mg / sennosides, fdc 8.6 mg oral tablet (1 source)Start: 42-14-3678flzb 1 tablet by mouth twice daily1 tablet, [...] over 5 mins. Post-op Start: 09-13-2021 End: 13-97-7122Txsyg: 09-08-2021 End: 17-02-3362lbda 1 dose intravenously once20 millicurie, IntraVENous, IMG ONCE PRN, 1 dose, Starting on Mon09/08/21 at 1128, Until Discontinued, Other, Nuclear MedicineStart: 09-01-2021 End: 02-46-1221mvqv 0.5-4 mL intravenously every wwpk27-053 mcg/hr (0.5-4 mL/hr), IntraVENous, CONTINUOUS, Starting on [...] mg/0.5 mL pen injector (1 source) End: 56-44-9080trkckonjjwl (TRULICITY) 3 mg/0.5 mL pen injector Inject 3 mg under the skin. 0 03/08/2023 Discontinueddulaglutide 3 mg/0.5 mL pen injector (9 sources)Start: 04-19-2023 End: 67-14-6217pllphntwclu 3 mg/0.5 mL pen injector Indications: Type 2 diabetes mellitus with microalbuminuria, without long-term current use of insulin ([facility]) Inject 3 mg under the skin every 7 days. 2 mL 4 04/19/2023 07/18/2023 Discontinued (Therapy completed)Start: 89-22-0373ghznkbblazx 3 mg/0.5 mL pen injector Indications: Type 2 diabetes mellitus with microalbuminuria, without long-term current use of insulin ([facility]) Inject 3 mg under the skin every 7 days. 2 mL 4 04/19/2023 Activeergocalciferol 1.25 mg oral capsule (17 sources)Provitamin D2 CompoundStart: 09-12-2021 End: 85-99-9623Zlupwce D, Ergocalciferol, 06551 units CAPS 50,000 Units by Per NG tube route once a week 5 capsule0 09/12/2021 09/28/2021 Discontinued (Therapy completed)Start: 95-27-301145,000 Units, Per NG tube, WEEKLY, First dose on Mon09/04/21 at 1100, Until Discontinuedfamotidine 20 mg oral tablet (3 sources)Histamine-2 Receptor AntagonistStart: 09-05-2021 End: 64-86-919418 mg, Per G Tube, 2 TIMES DAILY, First dose (after last modification) on Mon09/05/21 at 2100, UntilDiscontinued Renal dose adjustment per P&T GuidelinesStart: 09-04-2021 End: 45-68-800033 mg, Per G Tube, DAILY, First dose (after last modification) on Mon09/04/21 at 0900, Until Discontinued Renal dose adjustment per P&T Guidelines Start: 08-31-2021 End: 63-06-249335 mg, Per G Tube, 2 TIMES DAILY, First dose on Mon08/31/21 at 2100, Until Discontinuedfenofibrate 160 mg oral tablet (1 source)Peroxisome Proliferator Receptor alpha AgonistStart: 05-25-2022 End: 81-76-8334tznw 160 mg by mouth once aoyzb578 mg, Oral, DAILY, First dose on Mon05/25/22 at 0900, Until Discontinued Substituted for Fenofibrate (Non- Formulary Dose).2 ml fentaNYL 0.05 mg/ml injection (3 sources)Opioid AgonistStart: 08-30-2021 End: 20-37-6303hsom 50 ug by mouth every hour as [...] each other unless specifically ordered.Start: 08-29-2021 End: 12-86-2075wfhe 1 dose by mouth hqap515 mcg, IntraVENous, ONCE, 1 dose, On Mon08/29/21 at 0500 If oral and IV narcotics ordered, use oral first and only use IV if oral is ineffective or cannot take oral. Do Not give oral and IV within 1 hour of each other unless specifically ordered.Start: 08-29-2021 End: 68-77-3329sgng 1 dose by mouth onoi690 mcg, IntraVENous, ONCE, 1 dose, On 08/29/21 at 0315 If oral and IV narcotics ordered, use oral first and only use IV if oral is ineffective or cannot take oral. Do Not give oral and IV within 1 hour of each other unless specifically ordered.fluticasone propionate 0.05 mg/actuat metered dose nasal spray (20 sources)CorticosteroidStart: 05-27-2022 End: 52-11-1157lvdp 1 spray(s) nasal route twice daily as needed for rhinitis1 spray, Each Nostril, 2 TIMES DAILY PRN, Starting on Mon05/27/22 at 0427, Until Kathy 06/02/22 at 1824, RhinitisStart: 96-92-7159gxnu 2 spray(s) nasal route in the morningfluticasone [...] mg/ml injection (10 sources)Loop DiureticStart: 06-05-2022 End: 11-57-118086 mg, IntraVENous, ONCE, 1 dose, On 06/05/22 at 1000Start: 99-65-559944 mg, IntraVENous, DAILY, First dose (after last modification) on Mon09/07/21 at 0900, Until DiscontinuedStart: 09-05-2021 End: 68-47-412060 mg, IntraVENous, EVERY 12 HOURS, First dose on Mon09/05/21 at 1700, Until DiscontinuedStart: 09-02-2021 End: mg, IntraVENous, 2 TIMES DAILY, First dose on Kathy 09/02/21 at 1130, Until Discontinuedfurosemide (LASIX) 20 MG tablet Take by mouth daily 0 Activefurosemide (LASIX) 10 MG/ML solution Take by mouth daily 0 Activeglucagon (rdna) 1 mg injection (1 source)Antihypoglycemic AgentStart: 92-94-1250yozf 1 mL intravenously every hour1 mg, IntraMUSCular, [...] No bolus. Decrease infusion by 2 units/kg/hr. cAFZ99-696 secs Hold heparin for 60 minutes then [...] re-bolus based on pharmacy algorithmStart: 09-13-2021 End: 58-43-4894ctbemzh flush 100 UNIT/ML injection 500 UnitsStart: 09-02-2021 [...] 100 mL infusion (1 source)Start: 06-02-2022 End: 69-33-6145spwm 1-50 [IU] intravenously every hour, then take [...] injectable solution (4 sources)beta-Adrenergic BlockerStart: 05-24-2022 End: 53-15-583952 mg, IntraVENous, ONCE, 1 dose, On Mon05/24/22 at 2345Start: 05-24-2022 End: 01-67-630934 mg, IntraVENous, ONCE, 1 dose, On Mon05/24/22 at 2000Start: 40-08-628663 mg, IntraVENous, EVERY 6 HOURS PRN, Starting on Mon09/07/21 at 0915, Until Discontinued, High Blood Pressure, SBP > 150 Do not administer if HR less than 60Start: 09-06-2021 End: 95-41-564098 mg, IntraVENous, EVERY 2 HOURS PRN, Starting on Mon09/06/21 at 2238, Until Mon09/07/21 at 0910, High Blood Pressure, SBP > 150 Do not administer if HR less than 603 ml liraglutide 6 mg/ml pen injector (20 sources)GLP-1 Receptor AgonistStart: 04-03-2024 End: 73-45-9886qaphsmelbuc (VICTOZA 3-ALICE) 0.6 mg/0.1 mL (18 mg/3 mL) pen injector Indications: Uncontrolled type 2 diabetes mellitus with hyperglycemia ([facility]) Inject 0.3 mL (1.8 mg total) under the skin in the morning. 3 mL 6 04/03/2024 06/10/2024 DiscontinuedStart: 11-27-2023 End: 72-30-5423pljpypvyyvq (VICTOZA) 0.6 mg/0.1 mL (18 mg/3 mL) pen injector Indications: Type 2 diabetes mellituswith microalbuminuria, without long-term current use of insulin ([facility]) 1.8mg SUBCUTANEOUSLY (UNDER THE SKIN) 6 mL 11/27/2023 11/27/2023 DiscontinuedStart: 10-23-2023 End: 38-15-6939ailtbs 1.8 mg by subcutaneous injection once dailyliraglutide (VICTOZA) 0.6 mg/0.1 mL (18 mg/3 mL) pen injector Indications: Type 2 diabetes mellituswith microalbuminuria, without long-term current use of insulin ([facility]) INJECT 1.8mg SUBCUTANEOUSLY (UNDER THE SKIN) EVERY DAY 6 mL 11/27/2023 ActiveStart: 07-19-2023 End: 96-24-9044aadbwnrcmvx (VICTOZA 3-ALICE) 0.6 mg/0.1 mL (18 mg/3 mL) pen injector Indications: Type 2 diabetes mellitus with microalbuminuria, without long-term current use of insulin ([facility]) Week one, administer 0.6 mg [...] hydroxide 80 mg/ml oral suspension (1 source)Start: 42-82-5943omoa 30 mL by mouth once daily as hztiat42 mL, Oral, DAILY PRN, Starting on Kathy 06/02/22 at 1824, Until Discontinued, Constipation First line therapy for constipation. Post-opmeclizine hydrochloride 25 mg oral tablet (8 sources)AntiemeticStart: 04-24-2023 End: 08-60-7787ocod 1 tablet by mouth four times daily [...] (20 sources)Dihydropyridine Calcium Channel BlockerStart: 12-16-2022 End: 34-95-6779vlpc 1 tablet by mouth every twenty-four hours in the morning NIFEdipine XL (PROCARDIA XL) 30 mg 24 hr tablet Indications: Dilated cardiomyopathy (CMS-HCC) , Benign essential HTN Take 1 tablet (30 mg total) by mouth in the morning. 60 tablet 4 12/16/2022 03/08/2023 Discontinued (Therapy completed)Start: 08-09-2022 End: 94-56-3487hwya 2 tablets by mouth twice dailyNIFEdipine (PROCARDIA XL) 30 MG extended release tablet Take 2 tablets by mouth 2 times daily 360 tablet 0 08/09/2022 11/07/2022 ActiveStart: 05-26-2022 End: 46-05-4067kxsb 60 mg by mouth once daily60 mg, Oral, DAILY, First dose (after last modification) on Kathy 05/26/22 at 0900, Until DiscontinuedDo not crush or break.Start: 05-25-2022 End: 45-27-2223bdsb 90 mg by mouth once daily90 mg, Oral, DAILY, First dose (after last modification) on 05/28/22 at 0900, Until DiscontinuedDo not crush or break.Start: 09-08-2021 End: 05-94-4708btuu 1 tablet by mouth once dailyNIFEdipine (PROCARDIA XL) 30 MG extended release tablet Take 1 tablet by mouth daily 30 tablet 3 09/13/2021 Rhhhfp633 ml nitroglycerin 0.2 mg/ml injection (1 source)Nitrate [...] tablet (3 sources)Serotonin-3 Receptor AntagonistStart: 04-24-2023 End: 40-58-4087agydkyxlkka ODT (ZOFRAN ODT) 4 mg disintegrating tablet [...] oral tablet (2 sources)Atypical AntipsychoticStart: 09-04-2021 End: 52-89-2617wftt 25 mg by mouth once daily25 mg, [...] sodium chloride 9 mg/ml injection (20 sources)Start: 37-35-3981RpbilLZNonh, at 50 mL/hr, PRN, Use as chaser for manifold, Starting on Mon06/02/22 at 1824 Use as chaser for manifold. D/C when manifold is torn down. Post-opStart: 33-35-5118paua 5-40 mL intravenously once as needed5-40 mL, [...] Line = 20 mL/lumen Post-opStart: 05-31-2022 End: 17-47-7539GvldbQNOmdc, at 5-250 mL/hr, PRN, if patient receiving [...] rate field of order. Post-opStart: 05-26-2022 End: 19-81-6235MaxfpEEUhmi, at 75 mL/hr, CONTINUOUS, Starting on Kathy 05/26/22 at 1400Start: 05-25-2022 End: 25-84-7325HlyfiZURmix, at 75 mL/hr, CONTINUOUS, Starting on Mon05/25/22 at 1445Start: 05-23-2022 End: 40-32-2284prvj 1 dose intravenously twice daily5-40 mL, IntraVENous, [...] Line = 20 mL/lumen Post-opStart: 09-28-2021 End: 31-90-0885zadzpw chloride flush 0.9 % injection 5-40 mLStart: 09-20-2021 End: 38-46-6621csmoys chloride flush 0.9 % injection 5-40 mLStart: 09-17-2021 End: 47-03-0324haagcx chloride flush 0.9 % injection 5-40 mLStart: 09-13-2021 End: 42-49-6665gpeosy chloride flush 0.9 % injection 5-40 mLStart: 09-13-2021 End: .9 % sodium chloride infusionStart: 08-31-2021 End: 92-16-7103564 mL (4.52 mL/kg), IntraVENous, at 247.9 mL/hr, Administer over 121 Minutes, ONCE, On Mon08/31/21at 0100, For 1 doseStart: 52-29-8086xhly 1 dose intravenously twice daily5-40 mL, IntraVENous, [...] Central Line = 20 mL/lumenStart: 08-29-2021 End: 11-61-1203BvqpaUAJrme, at 50 mL/hr, CONTINUOUS, Starting on Mon08/31/21 at 0830Start: 74-93-2253yqlx 5-40 mL intravenously once as needed5-40 mL, [...] mL pen injector (2 sources)Start: 02-29-2024 End: 13-15-6288equbioavtfo (MOUNJARO) 7.5 mg/0.5 mL pen injector Indications: Uncontrolled type 2 diabetes mellitus with hyperglycemia (CMS-HCC) , Type 2 diabetes mellitus with stage 3 chronic kidney disease and hypertension ([facility]) Inject 7.5 mg under the skin every 7 days. 2 mL 6 02/29/2024 04/03/2024 Discontinued (Cost of medication)Start: 79-67-4647lwkdbyhauen (MOUNJARO) 7.5 mg/0.5 mL pen injector Indications: Uncontrolled type 2 diabetes mellitus with hyperglycemia ([facility]) , Type 2 diabetes mellitus with stage 3 chronic kidney disease and hypertension ([facility]) Inject 7.5 mg under the [...] [Occlusion and stenosis of unspecified cerebral artery]Onset: 13-54-6883TcxkdmhHetlu myocardial infarction (20 sources)Non-ST elevation (NSTEMI) myocardial infarction; Translations: [Myocardial infarction]Onset: 31-84-4768NnqzqrhNzbinqx disorders (16 sources)Anxiety; Translations: [Anxiety disorder, unspecified]Onset: 14-11-9434DfacdptXqkmzqt kidney disease (20 sources)Chronic kidney disease stage 3; Translations: [CKD (chronic kidney disease), stage III]Onset: 756030-81-2467FdhtzaqIjlgmlx kidney disease (4 sources)Chronic kidney disease; Translations: [Chronic kidney disease, stage 3b]Onset: 62-34-9273Qxawqmphjz heart failure; nonhypertensive (20 sources)Acute heart failure; Translations: [Heart failure, unspecified] Onset: 76-11-2485PkxorcqBtiskwof atherosclerosis and other heart disease (20 sources)Multi vessel coronary artery disease; Translations: [Atherosclerotic heart disease of [place] coronary artery without angina pectoris]Onset: 51-60-2318PhbimqwYpkbgoig mellitus with complications (20 sources)Hyperosmolar hyperglycemic coma due to diabetes mellitus without ketoacidosis; Translations: [Type 2 diabetes mellitus with hyperosmolarity with coma]Onset: 88-70-7431IrpbymcBydjdctp mellitus without complication (5 sources)Type 2 diabetes mellitus without complications; Translations: [Type 2 diabetes mellitus]Onset: 654603-66-3207OnghidxCksrvubz mellitus without complication (2 sources)Hyperglycemia, unspecified; Translations: [Hyperglycemia]Onset: 478310-53-7924RjgcynaxOaxjwwsqt of lipid metabolism (12 sources)Mixed hyperlipidemia; Translations: [Mixed hyperlipidemia]Onset: 806889-93-1639MszluolEkxasosck hypertension (20 sources)Essential hypertension; Translations: [Essential (primary) hypertension]Onset: 50-94-3748QhoihcgHmtlf of unknown origin (20 sources)Fever; Translations: [Fever, unspecified]EpisodicFluid and electrolyte disorders (1 source)Hyperkalemia; Translations: [HYPERKALEMIA]Onset: 89-50-8150Eigqshcm Hypertension with complications and secondary hypertension (20 sources)Hypertensive crisis; Translations: [Hypertensive crisis, unspecified]Onset: 37-04-6884IsposetXlqjcejxfmsas and screening for infectious disease (2 sources)Patient encounter status; Translations: [Encounter for screening for infections with a predominantly sexual mode of transmission]Onset: 12-30-2024 15-13-1132ZzeodoviGsdl disorders (20 sources)Moderate major depression, single episode; Translations: [Major depressive disorder, single episode, moderate]Onset: hronic Nonspecific chest pain (5 sources)Chest pain, unspecified; Translations: [Chest pain, unspecified] Onset: 50-40-2080NqlywxryPtvcxfmzkpu deficiencies (4 sources)Vitamin D deficiency; Translations: [Vitamin D deficiency, unspecified]Onset: 73-30-4947HfqcijzCegkb aftercare (1 source)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; Translations: [OTH ALF CURRENT DRUG THERAPY]Onset: 74-87-6214VqwbfbosQrgyr aftercare (3 sources)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; Translations: [FPC (current) use of insulin]Onset: 45-00-1480QwwyqhpoRbnhj diseases of kidney and ureters (1 source)Disorder of kidney and ureter, unspecified; Translations: [DISORDER KIDNEY AND URETER UNS]Onset: 70-27-3391PflijcomWgves endocrine disorders (20 sources)Hyperparathyroidism; Translations: [Hyperparathyroidism, unspecified]Onset: 05-06-4086EfwaratNmpri endocrine disorders (1 source)Hyperparathyroidism, unspecified; Translations: [Hyperparathyroidism, unspecified]Onset: 34-15-2253QufgeieGjdge endocrine disorders (20 sources)Primary hyperparathyroidism; Translations: [Primary hyperparathyroidism]Onset: 550329-13-9586CgmdyobRzcyx gastrointestinal disorders (3 sources)Loose stool; Translations: [Other fecal abnormalities]08-09-2024 EpisodicOther gastrointestinal disorders (1 source)Other fecal abnormalities; Translations: [Other fecal abnormalities] Onset: 12-41-3679RdpwtupfEcixw male genital disorders (20 sources)Prolonged erection of penis; Translations: [Priapism, unspecified] Onset: 339103-34-8997XccnslsVmddf male genital disorders (20 sources)Other and unspecified postprocedural erectile dysfunction; Translations: [Impotence of organic origin]Onset: hronic Other nutritional; endocrine; and metabolic disorders (20 sources)Hypercalcemia; Translations: [Hypercalcemia]Onset: 54-96-8226Txdxmpe Other nutritional; endocrine; and metabolic disorders (20 sources)Morbid obesity; Translations: [Morbid (severe) obesity due to excess calories]Onset: 84-31-9057TlcraaeLigbk nutritional; endocrine; and metabolic disorders (1 source)Hypercalcemia; Translations: [Hypercalcemia]Onset: 22-59-9774Nwtctzy Other nutritional; endocrine; and metabolic disorders (1 source)Morbid (severe) obesity due to excess calories; Translations: [Morbid (severe) obesity due to excess calories]Onset: 52-14-7050LdvozgdZbcfl nutritional; endocrine; and metabolic disorders (3 sources)Hypocalcemia; Translations: [Hypocalcemia]Onset: 39-81-7154Dxlkxoe Other nutritional; endocrine; and metabolic disorders (1 source)Severe obesity; Translations: [Class 3 severe obesity due to excess calories with serious comorbidity and body mass index (BMI) of 40.0 to 44.9 in adult ([facility])]22-80-2583NlhvwgfCjtnl nutritional; endocrine; and metabolic disorders (1 source)Body mass index (BMI) 40.0-44.9, adult; Translations: [Body mass index (BMI) 40.0-44.9, adult]Onset: 76-00-4532QfkrhepTpslw nutritional; endocrine; and metabolic disorders (10 sources)History of primary hyperparathyroidism; Translations: [Personal history of other endocrine, nutritional and metabolic disease]Onset: 05-31-2022 EpisodicOther nutritional; endocrine; and metabolic disorders (10 sources)History of diabetes mellitus type 2; Translations: [Personal history of other endocrine, nutritional and metabolic disease]Onset: 39-84-7898Kvmxnfko Other upper respiratory disease (10 sources)Allergic rhinitis; Translations: [Allergic rhinitis, unspecified] Onset: 09-60-6473GsowupnNsobr upper respiratory disease (3 sources)Allergic rhinitis due to pollen; Translations: [Allergic rhinitis due to pollen]97-39-6009TkiwqnmJfual upper respiratory disease (1 source)Seasonal allergic rhinitis; Translations: [Other seasonal allergic rhinitis]Onset: 051317-41-3900QkygslwZfjw-; endo-; and myocarditis; cardiomyopathy (except that caused by tuberculosis or sexually transmitted disease) (20 sources)Dilated cardiomyopathy; Translations: [Dilated cardiomyopathy]Onset: 57-16-0096HlbnlziRzxfyhpr; pneumothorax; pulmonary collapse (20 sources)Pleural effusion; Translations: [Pleural effusion, not elsewhere classified]EpisodicResidual codes; unclassified (20 sources)Obstructive sleep apnea syndrome; Translations: [Obstructive sleep apnea (adult) (pediatric)]Onset: 64-33-6860TkwufviXkvprijh codes; unclassified (20 sources)Delirium; Translations: [Disorientation, unspecified]Episodic Substance-related disorders (1 source)Nicotine dependence, other tobacco product, uncomplicated; Translations: [NICOTINE DEPEND OTH TOB PROD UNCOMP]Onset: 05-05-9908Qhcvptm Unclassified (1 source)CONTACT W/AND (SUSP) EXPOS COVID-19; Translations: [CONTACT W/AND (SUSP) EXPOS COVID-19]Onset: 67-74-2357Uujeguoqaiac (1 source)High Blood Sugar - SymptomaticOnset: 31-29-7364Adfkkxkvogaf (1 source)High Blood SugarOnset: 75-36-0096Gxaiyfcmqgfg (1 source)Obesity, class 3; Translations: [Obesity, class 3]Onset: 12-30-2024 Unclassified (1 source)est care/ partner tested positive for Trich- needs testedOnset: 12-30-2024 Past or Other Problems Problem ClassificationProblemDateDocumented DateEpisodic/ChronicAcute and unspecified renal failure (20 sources)Acute injury of kidney; Translations: [Acute kidney failure, unspecified]Onset: 01-75-9323WclyopgyRzhmwfky atherosclerosis and other heart disease (1 source)Presence of aortocoronary bypass graft; Translations: [Presence of aortocoronary bypass graft]Onset: 81-84-9861WbvvkrxdSwdkefyb of mouth; excluding dental (20 sources)Lesion of tongue; Translations: [Other diseases of tongue]Onset: 449370-51-4453FzfocbirMpuofbdzctcaf symptoms and ill-defined conditions (20 sources)Persistent proteinuria; Translations: [Persistent proteinuria, unspecified]Onset: 656234-68-0307IsrnypddLwyj disorders (20 sources)Mood disorders; Translations: [Depression, unspecified]Onset: 11-23-2023 Resolved: 667214-00-0848Ynpwa diseases of kidney and ureters (20 sources)Cyst of kidney; Translations: [Cyst of kidney, acquired]Onset: 840974-62-0853QskyhlbvEvnrn lower respiratory disease (20 sources)Acute pulmonary edema; Translations: [Acute pulmonary edema]Onset: 49-58-5442JjxbrnhfCcemy lower respiratory disease (1 source)Snoring; Translations: [Snoring]80-38-7285LlicfhmcHvcgf skin disorders (1 source)Folliculitis; Translations: [Follicular disorder, unspecified] 18-97-7683UotrjefaXlhp-; endo-; and myocarditis; cardiomyopathy (except that caused by tuberculosis or sexually transmitted disease) (20 sources)Pericardial effusion; Translations: [Pericardial effusion (noninflammatory)]Onset: 82-86-6244VhiqmzhsYlwixtdec (except that caused by tuberculosis or sexually transmitted disease) (20 sources)Pneumonia due to Staphylococcus aureus; Translations: [Pneumonia due to Methicillin susceptible Staphylococcus aureus]Onset: 83-18-9957Vltfrjqb Residual codes; unclassified (2 sources)Other specified postprocedural states; Translations: [Other specified postprocedural states]Onset: 61-37-3940AzkjhypcZlqqbcarjvx failure; insufficiency; arrest (adult) (20 sources)Acute respiratory failure; Translations: [Acute respiratory failure, unspecified whether with hypoxia or hypercapnia]Onset: 13-52-4842Lbbqrkmt Septicemia (except in labor) (20 sources)Sepsis due to Streptococcus; Translations: [Streptococcal sepsis, unspecified]Onset: 68-02-4624QxyhixvvQltnpjjybtvj (20 sources)Onset: 11-23-2023 Resolved: Viral infection (20 sources)Disease due to Rhinovirus; Translations: [Other viral infections of unspecified site]Onset: 45-32-4724Cqfvccoz Results Test NameValueInterpretationReference RangeFacilityCHLAMYDIA/GONORRHOEAE BY PCR, URINEon 44-09-2307VFMGMIEAU/GONORRHOEAE BY PCR, URINEGONORRHOEAE PCR, U Negative Neisseria gonorrhoeae not detected by nucleic acid amplification. This does not exclude the possibility of infection because results are dependent on adequate specimen collection. CHLAMYDIA PCR, U Negative Chlamydia trachomatis not detected by nucleic acid amplification. This does not exclude the possibility of infection because results are dependent on adequate specimen collection.[facility] PPGComment on above: Performed By: #### CGUPCR #### [facility] ([facility]) [address] [place] [address] VIRTRICHOMONAS BY PCRon 08-12-0877HOJSDVRTLWD BY PCRTRICHOMONAS PCR Not Detected Trichomonas vaginalis not detected. Assay methodology is nucleic acid amplification by real-time PCR for detection of Trichomonas vaginalis DNA performed on Photos to Photos GeneXpert Instrument System. [facility] PPGComment on above:Performed By: #### TRKPCR #### [facility] ([facility]) [address] [place] [address] VIROrders Onlyon 30-25-3647Nyvnyo [id number] lEias Walker 1985 Date Provider Department Center 12/13/2024 316-SHANELJACOB [facility] ENDOCR [facility] Family History Problem Relation Age of Onset Diabetes Mother Mental illness Mother Family Status - Relation Status Age at Mother AliveNormalUniOhio State [facility]ing [facility]36on 76-15-519290Lmkjcim called in, [facility] got the script for t wiliam Trulicity 3mg, but will not fill it until after 12/16/24 because the note says to start on the , can you change the start date for the Trulicity 3mg to a sooner date? [facility]37on 26-82-418391Tqpbde contact the office for test results in [...] requiring fasting to minimize the risk of ketoacidosis.NormalAshtabula County Medical CenterCBC WITH AUTO DIFFERENTIALon 71-56-5179XMGORZYAX ABSOLUTE COUNT (10*3/UL) BY AUTOMATED COUNT0.0 10*3/uLNormal0.0-0.2ProMedica Uk HealthcareComment on above:Performed By: #### CBCA #### [facility] ([facility]) [address] [place] [address] VIRBASOPHILS RELATIVE PERCENT BY AUTOMATED COUNT0.4 %Normal [facility] HospitalComment on above:Performed By: #### CBCA #### [facility] ([facility]) [address] [place] [address] VIRCELLAVISION DIFFERENTIAL TYPEAUTOMATED DIFFERENTIALNormal [facility] HospitalComment on above:Performed By: #### CBCA #### [facility] ([facility]) [address] [place] [address] VIREosinophils (Bld) [#/Vol]0.1 10*3/uLNormal0.0-0.4ProMedica Uk HealthcareComment on above:Performed By: #### CBCA #### [facility] ([facility]) [address] [place] [address] VIREOSINOPHILS RELATIVE PERCENT BY AUTOMATED COUNT0.8 %Normal ProMedica Barcenas HospitalComment on above:Performed By: #### CBCA #### [facility] ([facility]) [address] [place] [address] VIRErythrocyte distribution width (RBC) [Ratio]13.9 %Normal 11.5-15ProMedica [facility]aks HospitalComment on above:Performed By: #### CBCA #### [facility] ([facility]) [address] [place] [address] VIRHematocrit (Bld) [Volume fraction]48.8 %Famfpv04-06RdxZhmsdl [facility] HospitalComment on above:Performed By: #### CBCA #### [facility] ([facility]) [address] [place] [address] VIRHemoglobin (Bld) [Mass/Vol]16.1 g/eFNxbjgv46-76SehIwmwyb [facility] HospitalComment on above:Performed By: #### CBCA #### [facility] ([facility]) [address] [place] [address] VIRLYMPHOCYTES ABSOLUTE COUNT (10*3/UL) BY AUTOMATED COUNT2.5 10*3/uLNormal1.0-3.5ProMedica [facility]aks HospitalComment on above:Performed By: #### CBCA #### [facility] ([facility]) [address] [place] [address] VIRLYMPHOCYTES RELATIVE PERCENT BY AUTOMATED COUNT31.7 %Normal Pro[facility]aks HospitalComment on above:Performed By: #### CBCA #### [facility] ([facility]) [address] [place] [address] VIRMCH (RBC) [Entitic mass]28.7 gySvzrrw81-08NehRuwous [facility] HospitalComment on above:Performed By: #### CBCA #### [facility] ([facility]) [address] [place] [address] VIRMCHC (RBC) [Mass/Vol]32.9 g/vDLabigb51-35LyiMqcjwm [place] HospitalComment on above:Performed By: #### CBCA #### [facility] ([facility]) [address] [place] [address] VIRMCV (RBC) [Entitic vol]87 bBTypewr06-776MobGvikqv [place] HospitalComment on above:Performed By: #### CBCA #### [facility] ([facility]) [address] [place] [address] VIRMONOCYTES ABSOLUTE COUNT (10*3/UL) BY AUTOMATED COUNT0.8 10*3/uLNormal0.0-0.9ProUk Healthcare HospitalComment on above:Performed By: #### CBCA #### [facility] ([facility]) [address] [place] [address] VIRMONOCYTES RELATIVE PERCENT BY AUTOMATED COUNT9.8 %Normal ProMCleveland Clinic Fairview Hospital HospitalComment on above:Performed By: #### CBCA #### [facility] ([facility]) [address] [place] [address] VIRNEUTROPHILS ABSOLUTE COUNT BY AUTOMATED COUNT4.6 10*3/uL Normal1.5-6.6ProUk Healthcare HospitalComment on above:Performed By: #### CBCA #### [facility] ([facility]) [address] [place] [address] VIRNEUTROPHILS RELATIVE PERCENT BY AUTOMATED COUNT57.3 %Normal ProMCleveland Clinic Fairview Hospital HospitalComment on above:Performed By: #### CBCA #### [facility] ([facility]) [address] [place] [address] VIRPlatelet mean volume (Bld) [Entitic vol]9.1 fLNormal7-12 ProMCleveland Clinic Fairview Hospital HospitalComment on above:Performed By: #### CBCA #### [facility] ([facility]) [address] [place] [address] VIRPlatelets (Bld) [#/Vol]203 10*3/zWCdlaao526-648PfpTosklr [place] HospitalComment on above:Performed By: #### CBCA #### [facility] ([facility]) [address] [place] [address] VIRRBC COUNT5.59 X10E12/LNormal4.1-5.7ProWooster Community Hospital Comment on above:Performed By: #### CBCA #### [facility] ([facility]) [address] [place] [address] VIRWBC (Bld) [#/Vol]7.9 10*3/uLNormal4-11ProWooster Community HospitalComment on above:Performed By: #### CBCA #### [facility] ([facility]) [address] [place] [address] VIRCREATININE, SERUMon 59-92-5591Ppxfcxpzej [Mass/Vol]2.90 mg/dLHigh0.60-1.30ProWooster Community HospitalComment on above:Result Comment: METHOD TRACEABLE TO IDMS STANDARDPerformed By: #### LIBRARY CLERICAL ASSISTANT #### [facility] ([facility]) [address] [place] [address] VIRGFR/1.73 sq M.predicted among non-blacks MDRD (S/P/Bld) [Vol rate/Area]27 mL/min/{1.73_m2}Low>=60ProWooster Community HospitalComment on above: Result Comment: Reported eGFR is based on the CKD-EPI 2020 equation that does not use a race coefficient.Performed By: #### LIBRARY CLERICAL ASSISTANT #### [facility] ([facility]) [address] [place] [address] VIRFollow-Upon 20-41-8224Wwrjnm-[id number] BrandinElais 1985 M Date Provider Department Center 11/14/2024 316-JACOB UGARTE [facility] ENDOCR [facility] Family History Problem Relation Age of Onset Diabetes Mother Mental illness Mother Family Status - Relation Status Age at Mother Alive Level of Service:53769 SC OFFICE/OUTPATIENT ESTABLISHED MOD MDM 30 [facility] HospitalLIPID PROFILEon 05-64-9469Dgwrmgjxrar [Mass/Vol]150 mg/pIUtqpoc137-762KyxDvqngr [place] HospitalComment on above: Performed By: #### LIPR #### [facility] ([facility]) [address] [place] [address] VIRCholesterol in HDL [Mass/Vol]29 mg/dLLow>39ProWooster Community HospitalComment on above:Result Comment: HDL <40 mg/dL - High Risk HDL > or = 40mg/dL- Desirable HDL >60 mg/dL - Negative RiskPerformed By: #### LIPR #### [facility] ([facility]) [address] [place] [address] VIRCholesterol in LDL [Mass/Vol]72 mg/dLNormal<130ProWooster Community HospitalComment on above:Result Comment: LDL <100 mg/dL - Desirable LDL >160 mg/dL - High RiskPerformed By: #### LIPR #### [facility] ([facility]) [address] [place] [address] VIRCHOLESTEROL:HDL5.2High1.0-5.0[facility] Comment on above:Performed By: #### LIPR #### [facility] ([facility]) [address] [place] [address] VIRTriglyceride [Mass/Vol]244 mg/lOOcgg17-734NgzQzpyjw [place] HospitalComment on above:Performed By: #### LIPR #### [facility] ([facility]) [address] [place] [address] VIRVERY LOW CBWQVYWDZYA44 mg/dLHigh0-30ProUk Healthcare HospitalComment on above:Performed By: #### LIPR #### [facility] ([facility]) [address] [place] [address] VIRPOCT Hemoglobin A1con 32-02-2934MmR4y (Bld) [Mass fraction] 10 %Abnormal4 - 7 %[facility] SystemInterpretation and review of laboratory resultsAbnoLifecare Hospital of Mechanicsburg37on 35-21-488518Gzvjkq contact the office for test results in [...] 165-pound) person, and engage in resistance/endurance exercises regularly.NormalUnTwin City HospitalCOMPREHENSIVE METABOLIC PANELon 24-99-1458Aasuolk [Mass/Vol]4.1 g/dLNormal 3.2-5.3ProMedica Uk HealthcareComment on above:Performed By: #### [facility], [address]- 9, 2777-1, 57997-7 #### [facility] ([id number]) [address] [place], [place] [address]IUS [Catalytic activity/Vol]78 U/ZKaurtc07-421RqhIuresc [facility]arcenas HospitalComment on above:Performed By: #### DARLENE, 59364-9, 2776-, 26171-3 #### [facility] ([id number]) [address], [address] [place], [place] [address]HQI [Catalytic activity/Vol]30 U/LNormal0-40ProMedica [facility]arcenas HospitalComment on above:Performed By: #### DARLENE, 52018-4, 2776-, 35201-1 #### [facility] ([id number]) [address], [address] [place], [place] [address]Dmgku gap [Moles/Vol]7 mmol/LNormal5-15[facility] Comment on above:Performed By: #### DARLENE, , 2776-03, 79446-4 #### [facility] ([id number]) [address], [address] [place], [place] [address]PGE [Catalytic activity/Vol]20 U/LNormal0-41ProMedica [facility]enas HospitalComment on above:Performed By: #### DARLENE, , 2776-, 62284-6 #### [facility] ([id number]) [address], [address] [place], [place] [address]Lttkrptdc [Mass/Vol]0.9 mg/dLNormal0.3-1.2ProMedica Barcenas HospitalComment on above:Performed By: #### DARLENE, 83523-4, 2776-, 41352-7 #### [facility] ([id number]) [address], [address] [place], [place] [address]Vfzpxun [Mass/Vol]9.2 mg/dLNormal8.5-10.5ProMedica Barcenas HospitalComment on above:Performed By: #### DARLENE, , 2776-03, 26541-8 #### [facility] ([id number]) [address], [address] [place], [place] [address]Lbmveghy [Moles/Vol]104 mmol/LPyzjlu70-314ZpiObrwtg [place] HospitalComment on above:Performed By: #### DARLENE, , 2776-, 18900-8 #### [facility] ([id number]) [address] [place], [place] [address]JS3 [Moles/Vol]27 mmol/XNotrby33-22RlzGxxnyxGuernsey Memorial Hospital Comment on above:Performed By: #### DARLENE, , 2776-03, 54168-1 #### [facility] ([id number]) [address] [place], [place] [address]Legijoobyh [Mass/Vol]2.17 mg/dLHigh0.60-1.30ProWooster Community HospitalComment on above:Result Comment: METHOD TRACEABLE TO IDMS STANDARD Performed By: #### DARLENE, , 2776-03, 31634-0 #### [facility] ([id number]) [address] [place], [place] [address]HVT/1.73 sq M.predicted among non-blacks MDRD (S/P/Bld) [Vol rate/Area]39 mL/min/{1.73_m2}Low>59ProWooster Community HospitalComment on above: Result Comment: Reported eGFR is based on the CKD-EPI 1 equation that does not use a race coefficient.Performed By: #### DARLENE, , 2776-, 09047-6 #### [facility] ([id number]) [address] [place], [place] [address]Pugwxxz [Mass/Vol]220 mg/yFAsxg74-11TyeFgdypyNew[facility] Hospital Comment on above:Performed By: #### DARLENE, , 2776-, 50346-5 #### [facility] ([id number]) [address] [place], [place] [address]Ampomxpst [Moles/Vol]4.9 mmol/LNormal3.5-5.0ProUk Healthcare HospitalComment on above:Performed By: #### CMP, 70021-8, 2777-1, 18461-9 #### [facility] ([id number]) [address], [address] [place], [place] [address]Oajpxei [Mass/Vol]8.1 g/dLHigh6.0-8.0Pro[facility] Hospital Comment on above:Performed By: #### DARLENE, 75821-6, 2777-, 83170-2 #### [facility] ([id number]) [address] [place], [place] [address]Osjman [Moles/Vol]138 mmol/WBsofvu912-980NdeDpoqyn [place] HospitalComment on above:Performed By: #### DARLENE, 21637-1, 2777-, 71232-5 #### [facility] ([id number]) [address] [place], [place] [address]Smyw nitrogen [Mass/Vol]34 mg/dLHigh5-23ProWooster Community HospitalComment on above:Performed By: #### DARLENE, 08038-1, 2777-1, 48603-7 #### [facility] ([id number]) [address] [place], [place] [address]Uyhfzj-Uyem 43-33-4701Acfrof-[id number] Elias Walker 1985 M Date Provider Department Center 03/20/2024 316-SHANELJACOB [facility] ENDOCR [facility] Family History Problem Relation Age of Onset Diabetes Mother Mental illness Mother Family Status - Relation Status Age at Mother Alive Level of Service:10593 SC OFFICE/OP CONSLTJ NEW/EST PT LOW MDM 30 MINUTES Reason for Visit and Comments: Follow-up [620314]NormalUnTwin City HospitalMAGNESIUMon 74-44-8951Zigxmbwbp [Mass/Vol]2.0 mg/dLNormal1.8-2.6[facility] Comment on above:Performed By: #### DARLENE, 70621-2, 2777-1, 90036-8 #### [facility] ([id number]) [address], [address] [place], [place] [address]EFAKQNQRDSlr 27-73-9961Ljomtxuhw [Mass/Vol]3.6 mg/dLNormal 2.4-4.9ProWooster Community HospitalComment on above:Performed By: #### DARLENE, 58054- 9, 2777-1, 19822-8 #### [facility] ([id number]) [address] [place], [place] [address]Puaqmsy D+Metabolites [Mass/Vol]on 98-31-2331UHALDUS D 25 HYD TOT22.4 ng/tVYdb72-465RzfNocyyiWooster Community HospitalComment on above:Result Comment: Vitamin D status 25 [place] Vitamin D Deficiency <20 ng/mL Insufficiency 20-29 ng/mL Sufficiency 30-100 ng/mL Toxicity >100 ng/mL NOTE: A pediatric reference range has not been established by the cad designer of this kit. The [place] [employer] recommends a Vitamin D level of = or >20ng/mL in infants and children.Performed By: #### DARLENE, 81863-3, 2777-1, 20535-1 #### [facility] ([id number]) [address], [address] [place], [place] [address]SFIO Hemoglobin A1con 39-30-9714WjN2c (Bld) [Mass fraction]8.4 % Abnormal4 - 7 %ProMedicLong Prairie Memorial Hospital and Home SystemInterpretation and review of laboratory resultsAbnormalProWayne HospitalProGlenbeigh Hospital SystemAmbulatory referral to Diabetic Educationon 21-45-4038XddUnperjCommunity Regional Medical Center AND AUTO DIFFon 87-56-1536HHNLICPA BASOPHIL0.1 X10E9/LNormal0.0-0.2PSelect Medical Specialty [facility] [place] Comment on above:Performed By: #### CBCA, CMP #### [facility] ([id number]) [address] [place] [address]IELWPZVA NEUTROPHIL3.8 X10E9/LNormal1.5-6.6Summa HealthComment on above:Performed By: #### CBCA, CMP #### [facility] ([id number]) [address] [place] [address]Vvmlasuwa/100 WBC (Bld)0.8 %NormalSumma Health Comment on above:Performed By: #### CBCA, CMP #### [facility] ([id number]) [address] [place] [address]Jaacjbgxeeo (Bld) [#/Vol]0.1 10*3/uLNormal0.0-0.4Summa HealthComment on above:Performed By: #### CBCA, CMP #### [facility] ([id number]) [address] [place] [address]Ujvhbebuaah/100 WBC (Bld)1.3 %NormalSumma Health Comment on above:Performed By: #### CBCA, CMP #### [facility] ([id number]) [address] [place] [address]Sqglcpcsniy distribution width (RBC) [Ratio]14.1 %Normal 11.5-15.0Summa HealthComment on above:Performed By: #### CBCA, CMP #### [facility] ([id number]) [address] [place] [address]Mszuzarpxq (Bld) [Volume fraction]47.2 %Mlzjee44-56WmyYfubjoSumma HealthComment on above:Performed By: #### CBCA, CMP #### [facility] ([id number]) [address] [place] [address]Qbdcgkfxsb (Bld) [Mass/Vol]15.5 g/iZTrfxwc36.0-17.0Summa HealthComment on above:Performed By: #### CBCA, CMP #### [facility] ([id number]) [address] [place] [address] 88[address]Wrqciavtqjo (Bld) [#/Vol]2.4 10*3/uLNormal1.0-3.5PSelect Medical Specialty Hospital - YoungstownComment on above:Performed By: #### CBCA, CMP #### [facility] ([id number]) [address] [place] [address]Nrsucrrjmvb/100 WBC (Bld)33.9 %NormalProHill Country Memorial Hospital Comment on above:Performed By: #### CBCA, CMP #### [facility] ([id number]) [address] [place] [address]KAT (RBC) [Entitic mass]29.1 ebNgofnu58-41BptHkqqpuSumma HealthComment on above:Performed By: #### CBCA, CMP #### [facility] ([id number]) [address] [place] [address] 394[address]LNEB (RBC) [Mass/Vol]32.8 g/nUMmekkz51-71SedIhxhzoHill Country Memorial HospitalComment on above:Performed By: #### CBCA, CMP #### [facility] ([id number]) [address] [place] [address]ACS (RBC) [Entitic vol]89 uNWtpkpq03-487YxtNaoaym [facility]remont HospitalComment on above:Performed By: #### CBCA, CMP #### [facility] ([id number]) [address] [place] [address], [place] [address]Btppoqbnj (Bld) [#/Vol]0.7 10*3/uLNormal0-0.9Summa HealthComment on above:Performed By: #### CBCA, CMP #### [facility] ([id number]) [address] [place] [address], [place] [address]Nhwxbtsym/100 WBC (Bld)10.1 %[facility] Comment on above:Performed By: #### CBCA, CMP #### [facility] ([id number]) [address] [place] [address]Ehutfgvubem/100 WBC (Bld)53.9 %[facility] Comment on above:Performed By: #### CBCA, CMP #### [facility] ([id number]) [address] [place] [address], [place] [address]Uqdggvax mean volume (Bld) [Entitic vol]8.8 fLNormal7-12 Summa HealthComment on above:Performed By: #### CBCA, CMP #### [facility] ([id number]) [address] [place] [address], [place] [address]Zclxvmfkj (Bld) [#/Vol]236 10*3/mARrvrsc829-951GfuNmgbco [facility]ont HospitalComment on above:Performed By: #### CBCA, CMP #### [facility] ([id number]) [address] [place] [address], [place] [address]NTY COUNT5.31 X10E12/LNormal4.10-5.70[facility] Comment on above:Performed By: #### CBCA, CMP #### [facility] ([id number]) [address] [place] [address]CBX (Bld) [#/Vol]7.1 10*3/uLNormal4.0-11.0Summa HealthComment on above:Performed By: #### CBCLeslie, CMP #### [facility] ([id number]) [address] [place] [address], [place] [address]THGSYAVWAUWPY METABOLIC PANELon 13-18-7867Vqpkfwd [Mass/Vol]4.1 g/dLNormal3.2-5.3PSelect Medical Specialty Hospital - YoungstownComment on above:Performed By: #### CBCLeslie, CMP #### [facility] ([id number]) [address] [place] [address], [place] [address]JBL [Catalytic activity/Vol]102 U/ILzsbar82-797XevVacdevHill Country Memorial HospitalComment on above:Performed By: #### JUAN M, CMP #### [facility] ([id number]) [address] [place] [address], [place] [address]FNZ [Catalytic activity/Vol]43 U/LHigh0-40ProHill Country Memorial HospitalComment on above:Performed By: #### CBCLeslie, CMP #### [facility] ([id number]) [address] [place] [address], [place] [address]Rwdzr gap [Moles/Vol]9 mmol/LNormal5-15ProHill Country Memorial HospitalComment on above:Performed By: #### CBCLeslie, CMP #### [facility] ([id number]) [address] [place] [address], [place] [address]GFI [Catalytic activity/Vol]23 U/LNormal0-41ProHill Country Memorial HospitalComment on above:Performed By: #### CBCLeslie, CMP #### [facility] ([id number]) [address] [place] [address], [place] [address]Hzpegovnu [Mass/Vol]0.8 mg/dLNormal0.3-1.2PSelect Medical Specialty Hospital - YoungstownComment on above:Performed By: #### CBCLeslie, CMP #### [facility] ([id number]) [address] [place] [address], [place] [address]Ujxfdum [Mass/Vol]8.4 mg/dLLow8.5-10.5PSelect Medical Specialty Hospital - YoungstownComment on above:Performed By: #### JUAN M, CMP #### [facility] ([id number]) [address] [place] [address], [place] [address]Otgjfosu [Moles/Vol]107 mmol/OVnmtkq64-890EzvCeyrtpHill Country Memorial HospitalComment on above:Performed By: #### JUAN M, CMP #### [facility] ([id number]) [address] [place] [address], [place] [address]KX9 [Moles/Vol]22 mmol/YZkqjzr68-78UveFrnnlbSelect Medical Specialty Hospital - [place] Comment on above:Performed By: #### JUAN M, CMP #### [facility] ([id number]) [address] [place] [address]Xrkoawfdgx [Mass/Vol]2.18 mg/dLHigh0.70-1.20Summa HealthComment on above:Result Comment: METHOD TRACEABLE TO IDMS STANDARD Performed By: #### JUAN M, CMP #### [facility] ([id number]) [address] [place] [address]XHI/1.73 sq M.predicted among non-blacks MDRD (S/P/Bld) [Vol rate/Area]39 mL/min/{1.73_m2}Low>59ProHill Country Memorial HospitalComment on above: Result Comment: Reported eGFR is based on the CKD-EPI 2020 equation that does not use a race coefficient.Performed By: #### JUAN M, CMP #### [facility] ([id number]) [address] [place] [address] 31783Kpvjnlu [Mass/Vol]270 mg/sNDfua45-94WtmHagyiqSumma Health Comment on above:Performed By: #### JUAN M, CMP #### [facility] ([id number]) [address] [place] [address] 14497Mrjjhnmrg [Moles/Vol]4.9 mmol/LNormal3.5-5.0ProHill Country Memorial HospitalComment on above:Performed By: #### JUAN M, CMP #### [facility] ([id number]) [address] [place] [address] 80398Jnfphhb [Mass/Vol]7.9 g/dLNormal6.0-8.0ProHill Country Memorial HospitalComment on above:Performed By: #### JUAN M, CMP #### [facility] ([id number]) [address] [place] [address] 74936Cbnjuj [Moles/Vol]138 mmol/XZrfdjf928-508GhfDzmtkw Fremont HospitalComment on above:Performed By: #### JUAN M, CMP #### [facility] ([id number]) [address] [place] [address] 17111Fvpt nitrogen [Mass/Vol]36 mg/dLHigh5-23ProHill Country Memorial HospitalComment on above:Performed By: #### JUAN M, CMP #### [facility] ([id number]) [address] [place] [address] 13111Rftpdif Glucometer (BldC) [Mass/Vol]on 01-16-7512Bmwwmwf [Mass/Vol]181 mg/eCNzzr05-52PrxDwzbpbSumma HealthGlucose [Mass/Vol]283 mg/hSYber45-97RerEmpywvSumma HealthLipid 1996 panelon 27-72-0568Pobpafhimls [Mass/Vol]166 mg/iWOlnsca061-840WtrZpvnya [place]edo HospitalComment on above: Performed By: #### 09098-5 #### [facility] ([id number]) [address], [address] [place], [place] [address]Juhnocwyuhd in HDL [Mass/Vol]31 mg/dLLow>39ProUk Healthcare HospitalComment on above:Result Comment: HDL <40 mg/dL - High Risk HDL > or = 40mg/dL- Desirable HDL >60 mg/dL - Negative Risk Performed By: #### 11873-8 #### [facility] ([id number]) [address], [address] [place], [place] [address]Phkknpaihiz in LDL [Mass/Vol]89 mg/dLNormal<130ProMediOhioHealth Pickerington Methodist Hospital HospitalComment on above:Result Comment: LDL <100 mg/dL - Desirable LDL >160 mg/dL - High Risk Performed By: #### 87760-0 #### [facility] ([id number]) [address], [address] [place], [place] [address]Tipfhflpwmk in VLDL [Mass/Vol]46 mg/dLHigh0-30ProUk Healthcare HospitalComment on above:Performed By: #### 36482-0 #### [facility] ([id number]) [address], [address] [place], [place] [address]ANHTHSVWPRR:HDL5.4High1.0-5.0ProUk Healthcare HospitalComment on above:Performed By: #### 91139-3 #### [facility] ([id number]) [address], [address] [place], [place] [address]Jqimtopdfosj [Mass/Vol]232 mg/eEEsjd33-498QtyCookds [place]edo HospitalComment on above:Performed By: #### 20332-1 #### [facility] ([id number]) [address], [address] [place], [place] [address]JHIR Hemoglobin A1con 30-94-0674YlK2b (Bld) [Mass fraction]7.5 g/dLAbnormal4 - 7 g/dLChildren's Hospital of ColumbusInterpretation and review of laboratory resultsAbnoLifecare Hospital of MechanicsburgAlbumin on 97-78-0609Avcnuyk [Mass/Vol]4.0 g/dLNormal3.5-5.2MercSharon HospitalComment on above:Performed By: #### ALB, BMP, ESEQUIEL, CBC #### [address] [place] [phone] ( Ortho Tech: Sony Rinaldi MD #### PTHNCA #### [address] [address] Ortho Tech: Mike Pereyrabaptist health [facility] Metabolic Profon 61-61-7342Krtas gap [Moles/Vol]11 mmol/LNormal9-17Mercy HealthComment on above:Performed By: #### ALB, BMP, ESEQUIEL, CBC #### [address] [place] 194[address]83 Ortho Tech: Sony Rinaldi MD #### PTHNCA #### [address] [address] Ortho Tech: Vincent Sy MDBUN/CRE Tzxps65Bgribr5-17Fyxsh [facility] Comment on above:Performed By: #### ALB, BMP, ESEQUIEL, CBC #### [address] [place] 194[address]83 Ortho Tech: Sony Rinaldi MD #### PTHNCA #### [address] [address] Ortho Tech: MELLY Pereyraalcium [Mass/Vol]9.5 mg/dLNormal8.6-10.4Mercy HealthComment on above:Performed By: #### ALB, BMP, ESEQUIEL, CBC #### [address] [place] 2557483 Ortho Tech: Sony Rinaldi MD #### PTHNCA #### [place] [address] [place] [address] Ortho Tech: MELLY Pereyrahloride [Moles/Vol]106 mmol/VNwczza31-285FkkijMercy HealthComment on above:Performed By: #### ALB, BMP, ESEQUIEL, CBC #### [address] [place] 2557483 Ortho Tech: Sony Rinaldi MD #### PTHNCA #### [place] [address]02508 Ortho Tech: MELLY PereyraO2 [Moles/Vol]22 mmol/WVvnbhj91-74YwduzMercy HealthComment on above:Performed By: #### ALB, BMP, ESEQUIEL, CBC #### [address] [place] 2557483 Ortho Tech: Sony Rinaldi MD #### PTHNCA #### [place] 1702508 Ortho Tech: MELLY Pereyrareatinine [Mass/Vol]2.0 mg/dLHigh0.7-1.2Mercy Stamford HospitalComment on above:Performed By: #### ALB, BMP, ESEQUIEL, CBC #### [address] [place] 2557483 Ortho Tech: Sony Rinaldi MD #### PTHNCA #### [place] [address] [place] [address] Ortho Tech: Vincent Sy MDGFR/1.73 sq M.predicted among non-blacks MDRD (S/P/Bld) [Vol rate/Area]43 mL/min/{1.73_m2}Low>60Mercy HealthComment on above:Result Comment: These results are not [...] By: #### ALB, BMP, ESEQUIEL, CBC #### [address] [place] 2557483 Ortho Tech: Sony Rinaldi MD #### PTHNCA #### [address] 1078508 Ortho Tech: Vincent Sy MDGlucose [Mass/Vol]181 mg/mYSfsa07-06WdenwLouis Stokes Cleveland VA Medical CenterComment on above:Performed By: #### ALB, BMP, ESEQUIEL, CBC #### [address] [place] 2557483 Ortho Tech: Sony Rinaldi MD #### PTHNCA #### [address] [phone] Ortho Tech: Syl Pereyrassium [Moles/Vol]4.8 mmol/LNormal3.7-5.3 Mercy HealthComment on above:Performed By: #### ALB, BMP, ESEQUIEL, CBC #### [address] [place] 2557483 Ortho Tech: Sony Rinaldi MD #### PTHNCA #### [address] 3744308 Ortho Tech: LISA Pereyraodium [Moles/Vol]139 mmol/XHzqtey673-242Cxigz Tiffin HospitalComment on above:Performed By: #### ALB, BMP, ESEQUIEL, CBC #### [address] [place] [address] Ortho Tech: Sony Rinaldi MD #### PTHNCA #### [address] [address] Ortho Tech: Vincent Sy MDUrea nitrogen [Mass/Vol]29 mg/dLHigh6-20Mercy HealthComment on above:Performed By: #### ALB, BMP, ESEQUIEL, CBC #### [address] [place] 1944583 Ortho Tech: Sony Rinaldi MD #### PTHNCA #### [address] [address] Ortho Tech: MELLY Pereyraastrid 34-91-5300Sbrtiqzeyoj distribution width (RBC) [Ratio]14.2 %Iuayjj89.8-14.4Mercy HealthComment on above: Performed By: #### ALB, BMP, ESEQUIEL, CBC #### [address] [place] [address] Ortho Tech: Sony Rinaldi MD #### PTHNCA #### [address] [address] Ortho Tech: Vincent Sy MDHematocrit (Bld) [Volume fraction]49.9 %Normal 40.7-50.3Mercy Stamford HospitalComment on above:Performed By: #### ALB, BMP, ESEQUIEL, CBC #### [address] [place] 1944583 Ortho Tech: Sony Rinaldi MD #### PTHNCA #### [address] [address] Ortho Tech: Vincent Sy MDHemoglobin (Bld) [Mass/Vol]16.3 g/dLNormal 13.0-17.0Mercy HealthComment on above:Performed By: #### ALB, BMP, ESEQUIEL, CBC #### [address] [place] 2557483 Ortho Tech: Sony Rinaldi MD #### PTHNCA #### [place] 1702508 Ortho Tech: JODEE PereyraCH (RBC) [Entitic mass]28.7 toXlihfu13.2-33.5 [facility] HospitalComment on above:Performed By: #### ALB, BMP, ESEQUIEL, CBC #### [address] [place] 2557483 Ortho Tech: Sony Rinaldi MD #### PTHNCA #### [place] [address] Ortho Tech: JENS PereyraC (RBC) [Mass/Vol]32.7 g/kVDmvsvp06.4-34.8 Mercy HealthComment on above:Performed By: #### ALB, BMP, ESEQUIEL, CBC #### [address] [place] [address]83 Ortho Tech: Sony Rinaldi MD #### PTHNCA #### [place] [address] Ortho Tech: TOOTIE Pererya (RBC) [Entitic vol]88.0 nGMbtgen77.6-102.9 Mercy HealthComment on above:Performed By: #### ALB, BMP, ESEQUIEL, CBC #### [address] [place] [address] Ortho Tech: Sony Rinaldi MD #### PTHNCA #### [place] 1702508 Ortho Tech: Vincent Sy MDNRBC Automated0.0 per 100 WBCNormal0.0Mercy HealthComment on above:Performed By: #### ALB, BMP, ESEQUIEL, CBC #### [address] [place] [address] Ortho Tech: Sony Rinaldi MD #### PTHNCA #### [address] [address] Ortho Tech: Jeffrey Pereyra mean volume (Bld) [Entitic vol]10.7 fL Normal8.1-13.5Mercy HealthComment on above:Performed By: #### ALB, BMP, ESEQUIEL, CBC #### [address] [place] [address]83 Ortho Tech: Sony Rinaldi MD #### PTHNCA #### [place] [address] Ortho Tech: Sol Pereyrateerasmo (Bld) [#/Vol]230 10*3/nYEfgqdf801-568 Mercy HealthComment on above:Performed By: #### ALB, BMP, ESEQUIEL, CBC #### [address] [place] [address] Ortho Tech: Sony Rinaldi MD #### PTHNCA #### [place] [address] Ortho Tech: Vincent Sy MDRBC (Bld) [#/Vol]5.67 10*6/uLNormal4.21-5.77 Mercy HealthComment on above:Performed By: #### ALB, BMP, ESEQUIEL, CBC #### [address] [place], [place] [address] Ortho Tech: Sony Rinaldi MD #### PTHNCA #### [address] [address] Ortho Tech: Vincent Sy MDWBC (Bld) [#/Vol]7.2 10*3/uLNormal3.5-11.3Mercy [place] HospitalComment on above:Performed By: #### ALB, BMP, ESEQUIEL, CBC #### [address] [place] [address] Ortho Tech: Sony Rinaldi MD #### PTHNCA #### [address] [address] Ortho Tech: SIMEON Pereyra, Intacton 20-06-1211SYD, Fizwmd05.0 pg/mL Juntmo46-86HhhjlSaint Francis Hospital & Medical CenterComment on above:Performed By: #### UTPHO, UTK, UTCA #### [address] [address] Ortho Tech: Vincent Sy MD [address] [place] [address] Ortho Tech: Sony Rinaldi MD #### UTTP, UTCRE #### [address] [place] [address]83 Ortho Tech: DOLLY Shayhosphorus, Inorg.on 11-61-8766Zyryhfqtel, Inorg. 3.4 mg/dLNormal2.5-4.5Mercy HealthComment on above:Performed By: #### ALB, BMP, ESEQUIEL, CBC #### [address] [place] [address]83 Ortho Tech: Sony Rinaldi MD #### PTHNCA #### [address] [address] Ortho Tech: DOLLY Pereyrarotein,Tot,[place] Uron 33-19-3893Lwkdwovycf [Mass/Vol]53.3 mg/vJBkitax10.0-259.0Mercy HealthComment on above: Performed By: #### URTPRT #### [address] [place] [address] Ortho Tech: Krystal Shayt Prot. Conc.57 mg/dLNormSelect Medical Cleveland Clinic Rehabilitation Hospital, [facility] Comment on above:Result Comment: No normal range established.Performed By: #### URTPRT #### [facility] [address] [place], [place] 65[address] Ortho Tech: JURGEN Shay/Cre Ratio1.92Oqrt4.00-0.20[facility] Comment on above:Performed By: #### URTPRT #### [facility] [address] [place], [place] 1108[address] Ortho Tech: ANIYAH Shay Hemoglobin A1con 66-68-4467QuA8u (Bld) [Mass fraction]8.2 g/dLAbnormal4 - 7 g/dLChildren's Hospital of ColumbusInterpretation and review of laboratory resultsAbnormalProWayne HospitalProGlenbeigh Hospital SystemALT No additional P-5'-P [Catalytic activity/Vol]on 60-42-2776ZFF [Catalytic activity/Vol]52 U/LHigh0-40Summa HealthComment on above:Performed By: #### 1744-2, 1919-10, 2156-08, 78434-8 #### [facility] ([id number]) [address] [place], [place] [address]GGGsd 18-39-7299IBR [Catalytic activity/Vol]32 U/LNormal0-41 Summa HealthComment on above:Performed By: #### 1744-2, 1919-10, 2156-08, 34129-6 #### [facility] ([id number]) [address] [place], [place] [address]XF [Catalytic activity/Vol]on 52-43-3383IGI37 U/JLwhtii85-575 Summa HealthComment on above:Performed By: #### 1744-2, 1919-10, 2156-08, 83713-5 #### [facility] ([id number]) [address] [place], [place] [address]Koyal 1996 panelon 29-51-7277Rtsvhdqcbem [Mass/Vol]140 mg/dLLow 150-200ProHill Country Memorial HospitalComment on above:Performed By: #### 1744-2, 1919-10, 2156-08, 36601-3 #### [facility] ([id number]) [address] [place], [place] [address]Qidclyyqibv in HDL [Mass/Vol]35 mg/dLLow>39ProHill Country Memorial HospitalComment on above:Result Comment: HDL <40 mg/dL - High Risk HDL > or = 40mg/dL- Desirable HDL >60 mg/dL - Negative Risk Performed By: #### 1744-2, 1919-10, 2156-08, #### [facility] ([id number]) [address] [place], [place] [address]Bvrhajrvvps in LDL [Mass/Vol]62 mg/dLNormal<130ProHill Country Memorial HospitalComment on above:Result Comment: LDL <100 mg/dL - Desirable LDL >160 mg/dL - High Risk Performed By: #### 1744-2, 1919-10, 2156-08, #### [facility] ([id number]) [address] [place], [place] [address]Dgilykbmnfl in VLDL [Mass/Vol]43 mg/dLHigh0-30ProHill Country Memorial HospitalComment on above:Performed By: #### 1744-2, 1919-10, 2156-08, #### [facility] ([id number]) [address], [address] [place], [place] [address]KXDBQNAZXYO:HDL4.9Qwjbjs9.0-5.0ProHill Country Memorial HospitalComment on above:Performed By: #### 1744-2, 1919-10, 2156-08, 21272-3 #### [facility] ([id number]) [address], [address] [place], [place] [address]Deyfomnbsdox [Mass/Vol]213 mg/sCQbqu10-307GujVkjaowHill Country Memorial HospitalComment on above:Performed By: #### 1744-2, 1919-10, 2156-08, 05690-3 #### [facility] ([id number]) [address], [address] [place], [place] [address]TNZT Hemoglobin A1con 04-93-6222LsU8f (Bld) [Mass fraction]7.3 g/dLAbnormal4 - 7 g/dLChildren's Hospital of ColumbusInterpretation and review of laboratory resultsAbnormalProWayne HospitalProGlenbeigh Hospital SystemCalcium, Ionicon 46-12-7340Wguakwq [Moles/Vol]1.25 mmol/LNormal1.13-1.33MerSaint Francis Hospital & Medical CenterComment on above:Performed By: #### INEZ MAYES UTCA #### [facility] [employer] [address] [place] [address] Ortho Tech: Vincent Sy MD [facility] [address] [place] [address] Ortho Tech: Sony Rinaldi MD #### ZITA JACOBSON #### [facility] [address] [place] [address] Ortho Tech: Sony Rinaldi MDLipid Profileon 84-17-0926Qirprbarxaw [Mass/Vol] 216 mg/dLHigh<200Mercy Escal[place] HospitalComment on above:Result Comment: Cholesterol Guidelines: <200 Desirable 200-240 Borderline >240 UndesirablePerformed By: #### UTPHO, UTK, UTCA #### [facility] [address] [place] [address] Ortho Tech: Vincent Sy MD [address] [place], [place] [address] Ortho Tech: Sony Rinaldi MD #### UTMEHRAN, UTCRE #### [address] [place], [place] 8626[address] Ortho Tech: Sony Rinaldi MDCholesterol in HDL [Mass/Vol]44 mg/dLNormal>40 Mercy HealthComment on above:Result Comment: HDL Guidelines: <40 Undesirable 40-59 Borderline >59 DesirablePerformed By: #### UTPSOPHIA, BERENICEK, UTCA #### [address] [address] Ortho Tech: Vincent Sy MD [address] [place], [place] 1166783 Ortho Tech: Sony Rinaldi MD #### KAVON, BERENICECRE #### [address] [place], [place] 6436183 Ortho Tech: MELLY Shayholesterol in LDL [Mass/Vol]113 mg/dLNormal0-130 Mercy HealthComment on above:Result Comment: LDL Guidelines: <100 Desirable 100-129 Near to/above Desirable 130-159 Borderline >159 Undesirable Direct (measured) LDL and calculated LDL are not interchangeable tests.Performed By: #### UTPHO, BERENICEK, UTCA #### [facility] [address] [place] [address] Ortho Tech: Vincent Sy MD [address] [place], [place] 8040783 Ortho Tech: Sony Rinaldi MD #### KAVON, UTCRE #### [address] [place] [address] Ortho Tech: MELLY Shayholesterol.total/Cholesterol in HDL [Mass ratio] 4.9 {ratio}Normal<5MerSaint Francis Hospital & Medical CenterComment on above:Performed By: #### INEZ MAYES, UTCA #### [address] [place] [address] Ortho Tech: Vincent Sy MD [address] [place] [address] Ortho Tech: Sony Rinaldi MD #### BERENICE JACOBSONCRE #### [address] [place] [address] Ortho Tech: Sony Rinaldi MDTriglyceride [Mass/Vol]296 mg/dLHigh<150Mercy Stamford HospitalComment on above:Result Comment: Triglyceride Guidelines: <150 Desirable 150-199 Borderline 200-499 High >499 Very high Based on AHA Guidelines for fasting triglyceride, December 2011.Performed By: #### INEZ MAYES, UTCA #### [employer] [address] [place] [address] Ortho Tech: Vincent Sy MD [address] [place] [address] Ortho Tech: Sony Rinaldi MD #### BERENICE JACOBSONCRE #### [address] [place] [address] Ortho Tech: Sony Rinaldi [facility], Intacton 45-32-06[address]RYT, Zpgypu364.4 pg/mLHigh 14.0-72.0Mercy Stamford HospitalComment on above:Result Comment: SAMPLES FROM PATIENTS ROUTINELY RECEIVING HIGH DOSE BIOTIN THERAPY MAY SHOW FALSELY DEPRESSED RESULTS. ADDITIONAL INFORMATION MAY BE REQUIRED FOR DIAGNOSIS.Performed By: #### INEZ MAYES, UTCA #### [address] [place] [address] Ortho Tech: Vincent Sy MD [address] [place] [address] Ortho Tech: Sony Rinaldi MD #### UTMEHRAN, UTCRE #### [address] [place] [address] Ortho Tech: Daniel Shay 81-11-6692RZI [Catalytic activity/Vol]47 U/L High<40Mercy HealthComment on above:Performed By: #### UTPHO, UTK, UTCA #### [facility] [address] [place] [address] Ortho Tech: Vincent Sy MD [address] [place] [address] Ortho Tech: Sony Rinaldi MD #### UTMEHRAN, UTCRE #### [address] [place] [address] Ortho Tech: Tim Shay Metabolic Profon 49-50-4857Yodvi gap [Moles/Vol]12 mmol/LNormal9-17Mercy HealthComment on above:Performed By: #### UTPHO, UTK, UTCA #### [address] [address] Ortho Tech: Vincent Sy MD [address] [place] [address] Ortho Tech: Sony Rinaldi MD #### UTMEHRAN, UTCRE #### [address] [place] [address] Ortho Tech: Sony Rinaldi MDBUN/CRE Szdic50Murtnr3-58Ytjnc [facility] Comment on above:Performed By: #### UTPHO, UTK, UTCA #### [facility] [address] [place] [address] Ortho Tech: Vincent Sy MD [address] [place] [address] Ortho Tech: Sony Rinaldi MD #### UTMEHRAN, UTCRE #### [address] [place], [place] [address] Ortho Tech: MELLY Shayalcium [Mass/Vol]8.9 mg/dLNormal8.6-10.4Mercy HealthComment on above:Performed By: #### UTPHO, UTK, UTCA #### [facility] [address] [place] [address] Ortho Tech: Vincent Sy MD [address] [place], [place] 6217883 Ortho Tech: Sony Rinaldi MD #### UTMEHRAN, UTCRE #### [address] [place], [place] [address] Ortho Tech: MELLY Shayhloride [Moles/Vol]105 mmol/DKiahee05-099Syhjp Tiffin HospitalComment on above:Performed By: #### UTPHO, UTK, UTCA #### [facility] [address] [place] [address] Ortho Tech: Vincent Sy MD [address] [place] [address] Ortho Tech: Sony Rinaldi MD #### KAVON, UTCRE #### [address] [place] [address] Ortho Tech: Sony Rinaldi MDCO2 [Moles/Vol]23 mmol/IXvvaen60-86DpookMercy HealthComment on above:Performed By: #### UTPHO, UTK, UTCA #### [facility] [address] [place] [address] Ortho Tech: Vincent Sy MD [address] [place], [place] 394[address]83 Ortho Tech: Sony Rinaldi MD #### UTTP, UTCRE #### [address] [place], [place] 9479283 Ortho Tech: MELLY Shayreatinine [Mass/Vol]2.2 mg/dLHigh0.7-1.2Mercy Stamford HospitalComment on above:Performed By: #### UTPHO, UTK, UTCA #### [facility] [address] [place] [address] Ortho Tech: Vincent Sy MD [address] [place] [address] Ortho Tech: Sony Rinaldi MD #### UTMEHRAN, UTCRE #### [address] [place], [place] [address] Ortho Tech: Sony Rinaldi MDGFR/1.73 sq M.predicted among non-blacks MDRD (S/P/Bld) [Vol rate/Area]38 mL/min/{1.73_m2}Low>60Mercy Stamford HospitalComment on above:Result Comment: These results are [...] secretion.Performed By: #### UTPBERENICE CORTESK, UTCA #### [facility] [address] [place] [address] Ortho Tech: Vincent Sy MD [address] [place], [place] 606[address] Ortho Tech: Sony Rinaldi MD #### UTMEHRAN, UTCRE #### [address] [place], [place] [address]83 Ortho Tech: Sony Rinaldi MDGlucose [Mass/Vol]174 mg/eZLqpj99-00Ojeal Stamford HospitalComment on above:Performed By: #### INEZ MAYES, UTCA #### [facility] [address] [place] [address] Ortho Tech: Vincent Sy MD [address] [place], [place] [address] Ortho Tech: Sony Rinaldi MD #### KAVON, UTCRE #### [address] [place] [address] Ortho Tech: DOLLY Shayotassium [Moles/Vol]4.5 mmol/LNormal3.7-5.3Mercy [facility] HospitalComment on above:Performed By: #### INEZ MAYES, UTCA #### [address] [address] Ortho Tech: Vincent Sy MD [address] [place] [address] Ortho Tech: Sony Rinaldi MD #### KAVON, BERENICECRE #### [address] [place] [address] Ortho Tech: LISA Shayodium [Moles/Vol]140 mmol/IOwmqxp715-913Oqtsc Stamford HospitalComment on above:Performed By: #### INEZ MAYES, UTCA #### [facility] [address] [place] [address] Ortho Tech: Vincent yS MD [address] [place] [address] Ortho Tech: Sony Rinaldi MD #### UTMEHRAN, UTCRE #### [address] [place] [address] Ortho Tech: Sony Rinaldi MDUrea nitrogen [Mass/Vol]30 mg/dLHigh6-20Mercy Escalon HospitalComment on above:Performed By: #### UTPHO, UTK, UTCA #### [facility] [address] [place] [address] Ortho Tech: Vincent Sy MD [address] [place] [address] Ortho Tech: Sony Rinaldi MD #### UTTP, UTCRE #### [address] [place] [address] Ortho Tech: MELLY Shayreatine Kinaseon 03-18-8232IU [Catalytic activity/Vol]110 U/PIyjupa06-790YayqiMercy HealthComment on above:Performed By: #### UTPHO, UTK, UTCA #### [address] [address] Ortho Tech: Vincent Sy MD [address] [place] [address] Ortho Tech: Sony Rinaldi MD #### UTMEHRAN, UTCRE #### [address] [place] [address] Ortho Tech: DOLLY Shayrotein,Tot,[place] Uron 35-75-1214Vbnlmrojij [Mass/Vol]104.4 mg/tUZolpgj18.0-259.0Mercy HealthComment on above: Performed By: #### UTPHO, UTK, UTCA #### [place] [address] [place] [address] Ortho Tech: Vincent Sy MD [address] [place] [address] Ortho Tech: Sony Rinaldi MD #### UTTP, UTCRE #### [address] [place] [address] Ortho Tech: Sony Rinaldi MDTot Prot. Conc.163 mg/dLNoAccess Hospital DaytonComment on above:Result Comment: No normal range established.Performed By: #### UTPBERENICE CORTESK, UTCA #### [facility] [address] [place] [address] Ortho Tech: Vincent Sy MD [address] [place] [address] Ortho Tech: Sony Rinaldi MD #### KAVON, UTCRE #### [address] [place] [address] Ortho Tech: Sony Rinaldi MDTP/Cre Ratio1.31Fssr5.00-0.20[facility] Comment on above:Performed By: #### INEZ MAYES, UTCA #### [facility] [employer] [address] [place] [address] Ortho Tech: Vincent Sy MD [address] [place] [address] Ortho Tech: Sony Rinaldi MD #### KAVON, UTCRE #### [address] [place] [address] Ortho Tech: Sony Rinaldi MDHemoglobin A1Con [id number] [Mass/Vol]103 mg/dLNoAccess Hospital DaytonComment on above:Result Comment: The ADA and AACC recommend providing the estimated average glucose result to permit better patient understanding of their HBA1c result.Performed By: #### UTPBERENICE CORTESK, UTCA #### [facility] [address] [place] [address] Ortho Tech: Vincent Sy MD [address] [place] [address] Ortho Tech: Sony Rinaldi MD #### KAVON, UTCRE #### [address] [place] [address] Ortho Tech: Sony Rinaldi MDHbA1c (Bld) [Mass fraction]5.2 %Normal4.0-6.0Mercy HealthComment on above:Performed By: #### INEZ MAYES, UTCA #### [address] [place] [address] Ortho Tech: Vincent Sy MD [address] [place] [address] Ortho Tech: Sony Rinaldi MD #### KAVON, BERENICECRE #### [address] [place] [address] Ortho Tech: Sony Rinaldi [facility], [place] 95-58-6874FJW, Pbduoi337.6 pg/mLHigh 14.0-72.0Mercy HealthComment on above:Result Comment: SAMPLES FROM PATIENTS ROUTINELY RECEIVING HIGH DOSE BIOTIN THERAPY MAY SHOW FALSELY DEPRESSED RESULTS. ADDITIONAL INFORMATION MAY BE REQUIRED FOR DIAGNOSIS.Performed By: #### INEZ MAYES, UTCA #### [facility] [address] [place] [address] Ortho Tech: Vincent Sy MD [address] [place] [address] Ortho Tech: Sony Rinaldi MD #### KAVON, UTCRE #### [address] [place] [address] Ortho Tech: Sony Rinaldi MDVitamin D 25 OHon 61-05-6505Soshirk D 25 OH21.6 ng/mLLow>29.9Mercy HealthComment on above:Result Comment: Reference Range: Vitamin D status Range Deficiency <20 ng/mL Mild Deficiency 20-30 ng/mL Sufficiency 30-100 ng/mL Toxicity >100 ng/mLPerformed By: #### INEZ MAYES, UTCA #### [address] [place] [address] Ortho Tech: Vincent Sy MD [address] [place] [address] Ortho Tech: Sony Rinaldi MD #### UTTP, UTCRE #### [address] [place], [place] [id number] Ortho Tech: Sony Rinaldi MDAlbuminon 90-23-2765Ehqxnov [Mass/Vol]4.3 g/dL Normal3.5-5.2MLouis Stokes Cleveland VA Medical CenterComment on above:Performed By: #### UTPHO, UTK, UTCA #### [facility] [address] [place] [address] Ortho Tech: Vincent Sy MD [address] [place] [address] Ortho Tech: Sony Rinaldi MD #### KAVON, UTCRE #### [address] [place], [facility]83 Ortho Tech: Sony Rinaldi MDBasic Metabolic Profon 50-82-1109Dqfjz gap [Moles/Vol]11 mmol/LNormal9-17Mercy HealthComment on above:Performed By: #### UTPHO, UTK, UTCA #### [facility] [address] [place] [address] Ortho Tech: Vincent Sy MD [address] [place], [facility]83 Ortho Tech: Sony Rinaldi MD #### UTTP, UTCRE #### [address] [place] [address] Ortho Tech: Sony Rinaldi MDBUN/CRE Szwwq32Gjpxrh1-51Lursr [facility] Comment on above:Performed By: #### UTPHO, UTK, UTCA #### [facility] [address] [place] [address] Ortho Tech: Vincent Sy MD [address] [place] [address] Ortho Tech: Sony Rinaldi MD #### UTTP, UTCRE #### [address] [place], [place] [address] Ortho Tech: MELLY Shayalcium [Mass/Vol]11.1 mg/dLHigh8.6-10.4Mercy HealthComment on above:Performed By: #### UTPHO, UTK, UTCA #### [facility] [address] [place] [address] Ortho Tech: Vincent Sy MD [address] [place] [address] Ortho Tech: Sony Rinaldi MD #### UTMEHRAN, UTCRE #### [address] [place] [address] Ortho Tech: MELLY Shayhloride [Moles/Vol]110 mmol/SZkkt22-558ErsmyMercy HealthComment on above:Performed By: #### UTPHO, UTK, UTCA #### [facility] [address] [place] [address] Ortho Tech: Vincent Sy MD [address] [place] [address] Ortho Tech: Sony Rinaldi MD #### UTTP, UTCRE #### [address] [place] [address] Ortho Tech: MELLY ShayO2 [Moles/Vol]23 mmol/TVpzyuu78-58CpvmxMercy HealthComment on above:Performed By: #### UTPHO, UTK, UTCA #### [facility] [address] [place] [address] Ortho Tech: Vincent Sy MD [address] [place], [place] [address]83 Ortho Tech: Sony Rinaldi MD #### UTMEHRAN, UTCRE #### [address] [place], [place] [address]83 Ortho Tech: MELLY Shayreatinine [Mass/Vol]2.1 mg/dLHigh0.7-1.2Mercy Stamford HospitalComment on above:Performed By: #### UTPBERENICE CORTESK, UTCA #### [facility] [address] [place] [address] Ortho Tech: Vincent Sy MD [address] [place], [place] [address] Ortho Tech: Sony Rinaldi MD #### UTMEHRAN, UTCRE #### [address] [place] [address]283 Ortho Tech: Sony Rinaldi MDGFR/1.73 sq M.predicted among non-blacks MDRD (S/P/Bld) [Vol rate/Area]41 mL/min/{1.73_m2}Low>60Mercy Stamford HospitalComment on above:Result Comment: These results are [...] secretion.Performed By: #### UTPBERENICE CORTESK, UTCA #### [facility] [address] [place] [address] Ortho Tech: Vincent Sy MD [address] [place], [place] 17[address]383 Ortho Tech: Sony Rinaldi MD #### UTMEHRAN, UTCRE #### [address] [place] 1436483 Ortho Tech: Sony Rinaldi MDGlucose [Mass/Vol]116 mg/zBMgvy59-97RzynsLouis Stokes Cleveland VA Medical CenterComment on above:Performed By: #### BERENICE MAYESK, UTCA #### [facility] [address] [place] [address] Ortho Tech: Vincent Sy MD [address] [place] [address] Ortho Tech: Sony Rinaldi MD #### UTMEHRAN, UTCRE #### [address] [place] [address] Ortho Tech: DOLLY Shayotassium [Moles/Vol]4.5 mmol/LNormal3.7-5.3Mercy Stamford HospitalComment on above:Performed By: #### INEZ MAYES, UTCA #### [facility] [address] [place] [address] Ortho Tech: Vincent Sy MD [address] [place] [address] Ortho Tech: Sony Rinaldi MD #### KAVON, UTCRE #### [address] [place] [address] Ortho Tech: LISA Shayodium [Moles/Vol]144 mmol/XUmdeoh042-571Oxdmt Stamford HospitalComment on above:Performed By: #### UTPBERENICE CORTESK, UTCA #### [facility] [address] [place] [address] Ortho Tech: Vincent Sy MD [address] [place] [address] Ortho Tech: Sony Rinaldi MD #### UTTP, UTCRE #### [address] [place] [address] Ortho Tech: Sony Rinaldi MDUrea nitrogen [Mass/Vol]30 mg/dLHigh6-20Mercy HealthComment on above:Performed By: #### UTPHO, UTK, UTCA #### [facility] [address] [place] [address] Ortho Tech: Vincent Sy MD [address] [place] [address] Ortho Tech: Sony Rinaldi MD #### UTTP, UTCRE #### [address] [place] [address] Ortho Tech: Chinmay Shay 50-68-4169Rrignszmyyc distribution width (RBC) [Ratio]17.2 %High11.8-14.4Mercy HealthComment on above:Performed By: #### SUGEY, BERENICEK, UTCA #### [address] [address] Ortho Tech: Vincent Sy MD [address] [place] [address] Ortho Tech: Sony Rinaldi MD #### UTMEHRAN, UTCRE #### [address] [place] [address] Ortho Tech: Sony Rinaldi MDHematocrit (Bld) [Volume fraction]53.6 %High 40.7-50.3MLouis Stokes Cleveland VA Medical CenterComment on above:Performed By: #### UTPHO, UTK, UTCA #### [facility] [address] [place] [address] Ortho Tech: Vincent Sy MD [address] [place], [place] 6659483 Ortho Tech: Sony Rinaldi MD #### UTTP, UTCRE #### [address] [place], [place] 5916283 Ortho Tech: Sony Rinaldi MDHemoglobin (Bld) [Mass/Vol]17.2 g/bINprn30.0-17.0 Mercy HealthComment on above:Performed By: #### UTPHO, UTK, UTCA #### [facility] [address] [place] [address] Ortho Tech: Vincent Sy MD [address] [place], [place] 218[address]83 Ortho Tech: Sony Rinaldi MD #### UTTP, UTCRE #### [address] [place], [place] [address]83 Ortho Tech: JODEE ShayCH (RBC) [Entitic mass]27.2 xwVbxqtc48.2-33.5 Mercy HealthComment on above:Performed By: #### UTPSOPHIA, UTK, UTCA #### [facility] [address] [place] [address] Ortho Tech: Vincent Sy MD [address] [place] [address] Ortho Tech: Sony Rinaldi MD #### UTMEHRAN, UTCRE #### [address] [place], [place] 9916183 Ortho Tech: JENS ShayC (RBC) [Mass/Vol]32.1 g/oYDozbzt74.4-34.8Mercy HealthComment on above:Performed By: #### UTPHO, UTK, UTCA #### [facility] [address] [place] [address] Ortho Tech: Vincent Sy MD [address] [place], [place] 602[address]83 Ortho Tech: Sony Rinaldi MD #### UTTP, UTCRE #### [address] [place], [place] 326[address]83 Ortho Tech: JODEE ShayCV (RBC) [Entitic vol]84.7 iPJmylkg05.6-102.9 [facility] HealthCommunising memorial hospital on above:Performed By: #### BERENICE MAYESK, UTCA #### [facility] [address] [place] [address] Ortho Tech: Vincent Sy MD [address] [place] [address] Ortho Tech: Sony Rinaldi MD #### KAVON, BERENICECRE #### [address] [place] [address] Ortho Tech: Sony Rinaldi MDNRBC Automated0.0 per 100 WBCNormal0.0Mercy HealthCommunising memorial hospital on above:Performed By: #### INEZ MAYES, UTCA #### [facility] [address] [place] [address] Ortho Tech: Vincent Sy MD [address] [place] [address] Ortho Tech: Sony Rinaldi MD #### KAVON, ZITA #### [address] [place] [address] Ortho Tech: Jeffrey Shay mean volume (Bld) [Entitic vol]9.5 fL Normal8.1-13.5[facility] on above:Performed By: #### SUGEY, BERENICEK, UTCA #### [facility] [address] [place] [address] Ortho Tech: Vincent Sy MD [address] [place] [address] Ortho Tech: Sony Rinaldi MD #### KAVON, BERENICECRE #### [address] [place] [address] Ortho Tech: Thu Shay (d) [#/Vol]280 10*3/fKDuvxnf296-069 Mercy HealthComment on above:Performed By: #### UTPHO, UTK, UTCA #### [facility] [address] [place] [address] Ortho Tech: Vincent Sy MD [address] [place] [address] Ortho Tech: Sony Rinaldi MD #### UTTP, UTCRE #### [address] [place] [address] Ortho Tech: PETE Shay ([facility]) [#/Vol]6.33 10*6/uLHigh4.21-5.77Mercy HealthComment on above:Performed By: #### UTPHO, UTK, UTCA #### [facility] [address] [place] [address] Ortho Tech: Vincent Sy MD [address] [place] [address] Ortho Tech: Sony Rinaldi MD #### UTTP, UTCRE #### [address] [place] [address] Ortho Tech: RADHA Shay ([facility]) [#/Vol]8.9 10*3/uLNormal3.5-11.3MLouis Stokes Cleveland VA Medical CenterComment on above:Performed By: #### UTPHO, UTK, UTCA #### [facility] [address] [place] [address] Ortho Tech: Vincent Sy MD [address] [place] [address] Ortho Tech: Sony Rinaldi MD #### UTTP, UTCRE #### [address] [place], [place] [address]83 Ortho Tech: Dania Shaysphorus, Inorg.on 88-58-2261Qevlqniexs, Inorg. 2.8 mg/dLNormal2.5-4.5Mercy HealthComment on above:Performed By: #### UTPHO, UTK, UTCA #### [facility] [address] [place] [address] Ortho Tech: Vincent Sy MD [address] [place] [address] Ortho Tech: Sony Rinaldi MD #### UTTP, UTCRE #### [address] [place] [address]83 Ortho Tech: DOLLY Shayrotein,Tot,[place] Uron 67-04-2350Lyyqfxvzmj [Mass/Vol]91.1 mg/tSGvzsrb46.0-259.0Mercy HealthComment on above: Performed By: #### UTPHO, UTK, UTCA #### [facility] [address] [place] [address] Ortho Tech: Vincent Sy MD [address] [place] [address] Ortho Tech: Sony Rinaldi MD #### UTMEHRAN, UTCRE #### [address] [place], [facility]83 Ortho Tech: Sony Rinaldi MDTot Prot. Conc.185 mg/dLNormalMercy HealthComment on above:Result Comment: No normal range established.Performed By: #### UTPHO, UTK, UTCA #### [facility] [address] [place] [address] Ortho Tech: Vincent Sy MD [address] [place] [address]83 Ortho Tech: Sony Rinaldi MD #### UTTP, UTCRE #### [facility] [address] [place] [address] Ortho Tech: Sony Rinaldi MDTP/Cre Ratio2.42Cqrx1.00-0.20[facility] Comment on above:Performed By: #### UTPHO, UTK, UTCA #### [facility] [address] [place], [place] 8290808 Ortho Tech: Vincent Sy MD [facility] [address] [place] [address] [place] [address] Ortho Tech: Sony Rinaldi MD #### KAVON, UTCRE #### [address] [place] [address] Ortho Tech: Sony Rinaldi MDUS BIOPSY RENAL LEFT PERCon 51-61-7484TX BIOPSY RENAL LEFT PERCEXAMINATION: ULTRASOUND GUIDED KIDNEY [...] Signed by: Juma Zuñiga MD 10/21/22 Final resultNoKettering Health MiamisburgUS GUIDED NEEDLE PLACEMENTon 27-05-5786VT GUIDED NEEDLE PLACEMENTEXAMINATION: ULTRASOUND GUIDED KIDNEY BIOPSY [...] Signed by: Juma Zuñiga MD 10/21/22 Final resultNormalMercy Health [facility] Hospital 15-36-1979tFSL Coag (Bld) [Time]20.7 sLow23.0-36.5Uc HealthComment on above: Result Comment: IV Heparin Therapy Range: 66.0-92.0 secPerformed By: #### BMP, MG, CBC, PT, PTT #### [facility] [address] [place] [address] Ortho Tech: Vincent Sy [facility] HOSPITALMarc 14-36-0566NUB Coag (PPP) [Relative time]0.9 {INR}NormalUc HealthComment on above:Result Comment: Therapeutic Range: Moderate Anticoagulant Intensity: INR = 2.0-3.0 High Anticoagulant Intensity: INR = 2.5-3.5Performed By: #### BMP, MG, CBC, PT, PTT #### [facility] [address] [place], [place] 9675208 Ortho Tech: LALO Pereyra Coag (PPP) [Time]12.3 tJnywgy97.7-14.9Uc HealthComment on above:Performed By: #### BMP, MG, CBC, PT, PTT #### [facility] [address] [place], [place] 8057208 Ortho Tech: DOLLY Pereyralatelet Counton 77-46-3533Kpdyobjtb (Bld) [#/Vol]203 10*3/dIMqpfbf038-651PgqcnUc HealthComment on above: Performed By: #### BMP, MG, CBC, PT, PTT #### [facility] [address] [place] [id number] Ortho Tech: LISA Pereyraurgical Pathologyon 06-01-2610Uqqxurzd Pathology(NOTE) Path Number: [id number] -- Diagnosis -- Left kidney, biopsy forwarded to [facility] for processing and interpretation. Paul Piper M.D. Electronically Signed Out tb03/13/2010/24/2022 Clinical Information Pre-op Diagnosis: CKD 3, KIDNEY FUSION, HIGH PROTEIN IN URINE, CREATININE 2.1; BUN 14; PT 12.3, PTT 20.7, INR 0.9 Operative Findings: LEFT KIDNEY tm Source of Specimen A: LEFT KIDNEY BIOPSY SENT OUT TO [facility] Intraoperative Diagnosis Episode #1: 3 cores, recommend additional. Episode #2: 1 core, adequate. (RDD) RDD Gross Description ELIAS WALKER, UNDESIGNATED Biopsies are examined at the time of biopsy for assessment of adequacy by Dr. Paul Piper. Four cores, 5-14 mm long and < 1 mm diameter. The specimen is subdivided and placed into appropriate transport medium and sent out [facility] in [place], [place]. Gross only. Ds tm RDD/tb1:10/24/2022 Microscopic Description Microscopic examination performed. Processing Lab: [address] [address] Interpretation Performed at [address] [address] SURGICAL PATHOLOGY CONSULTATION Patient Name: ELIAS WALKER Rec: [id number] [facility] ANATOMIC PATHOLOGY [address] [place], [place] [id number] NoKettering Health MiamisburgCalcium,Timed Uron 97-47-1160Sxenehz [Mass/Vol]8.9 mg/dLNormSelect Medical Cleveland Clinic Rehabilitation Hospital, Edwin ShawComment on above:Performed By: #### BERENICE MAYESK, UTCA #### [address] [address] Ortho Tech: Vincent Sy MD [address] [place] [address] Ortho Tech: Snoy Rinaldi MD #### UTMEHRAN, UTCRE #### [address] [place] [address] Ortho Tech: MELLY Shayalcsean Excreted,Ur231 mg/24 jDrvmgt74-333MrcpwMercy HealthComment on above:Performed By: #### UTPBERENICE CORTESK, UTCA #### [address] 1079408 Ortho Tech: Vincent Sy MD [address] [place] [address] Ortho Tech: Sony Rinaldi MD #### UTTP, UTCRE #### [address] [place] [address] Ortho Tech: Sony Rinaldi MDPhos,Inorg,Timed Uron 45-66-3422Xrvr,Inorg,conc,Ur 43.1 mg/dLNormalMercy HealthComment on above:Performed By: #### UTPHO, UTK, UTCA #### [place] [address] [place] [address] Ortho Tech: Vincent Sy MD [address] [place] [address]83 Ortho Tech: Sony Rinaldi MD #### UTTP, UTCRE #### [address] [place] 194[address]83 Ortho Tech: DOLLY Shayhos,Inorg,Excret,Vb8792 mg/24 vEhwvch921-6334 Mercy HealthComment on above:Performed By: #### UTPSOPHIA, UTK, UTCA #### [address] [address] Ortho Tech: Vincent Sy MD [address] [place] [address] Ortho Tech: Sony Rinaldi MD #### UTTP, UTCRE #### [address] [place] [address] Ortho Tech: Syl Shayssium,Timed Uron 39-42-9446Hohkdmoce [Moles/Vol]21.4 mmol/LNormalMercy HealthComment on above:Result Comment: No normal range established.Performed By: #### UTPHO, UTK, UTCA #### [address] [address] Ortho Tech: Vincent Sy MD [address] [place] [address] Ortho Tech: Sony Rinaldi MD #### UTTP, UTCRE #### [address] [place] [address] Ortho Tech: DOLLY Shayotassium Excreted,Ur56 mmol/24 dVjpozh22-468VohggMercy HealthComment on above:Performed By: #### UTPHO, UTK, UTCA #### [address] [address] Ortho Tech: Vincent Sy MD [address] [place] [address] Ortho Tech: Sony Rinaldi MD #### UTTP, UTCRE #### [address] [place] [address]83 Ortho Tech: Maximo Shay, Timed Uron 00-82-6243Rdhdfoqgkf [Mass/Vol]68.8 mg/dLNormalMercy HealthComment on above:Performed By: #### UTPHO, UTK, UTCA #### [address] [address] Ortho Tech: Vincent Sy MD [address] [place] [address] Ortho Tech: Sony Rinaldi MD #### UTTP, UTCRE #### [address] [place], [place] [address] Ortho Tech: MELLY Shayreatinine Cgahcbct8187 mg/24 oPrtecz6982-2776 Mercy HealthComment on above:Performed By: #### UTPHO, UTK, UTCA #### [address] [address] Ortho Tech: Vincent Sy MD [address] [place], [place] 4870883 Ortho Tech: Sony Rinaldi MD #### UTTP, UTCRE #### [address] [place] [address] Ortho Tech: Sony Rinaldi MDVolume of Bcwwgpoclw2478 [facility] Perrysburg HospitalComment on above:Performed By: #### UTPHO, UTK, UTCA #### [facility] [address] [place] [address] Ortho Tech: Vincent Sy MD [address] [place] [address] Ortho Tech: Sony Rinaldi MD #### UTTP, UTCRE #### [address] [place] [address] Ortho Tech: Sony Rinaldi MDClovis Baptist Hospital ztgkpusys99 [facility] Comment on above:Performed By: #### UTPHO, UTK, UTCA #### [facility] [address] [place] [address] Ortho Tech: Vincent Sy MD [address] [place] [address] Ortho Tech: Sony Rinaldi MD #### UTTP, UTCRE #### [address] [place] [address] Ortho Tech: Sony Rinaldi, MDProtein,Tot,Timed Uron 10-06-2022 Protein,Tot,conc,Ur123 mg/dLNoAccess Hospital DaytonComment on above: Performed By: #### UTPHO, UTK, UTCA #### [facility] [address] [place] [address] Ortho Tech: Vincent Sy MD [address] [place] [address] Ortho Tech: Sony Rinaldi MD #### UTTP, UTCRE #### [address] [place], [place] 2411783 Ortho Tech: Sony Sturtz, MDProtein,Tot,Excret,Fz1877 mg/24 hHigh<151Mercy Stamford HospitalComment on above:Performed By: #### UTPSOPHIA, UTK, UTCA #### [facility] [address] [place] [address] Ortho Tech: Vincent Sy MD [address] [place], [place] [address]17783 Ortho Tech: Sony Rinaldi MD #### UTMEHRAN, UTCRE #### [address] [place] [address] Ortho Tech: Sony Rinaldi MDAlbuminon 04-98-8534Hrsoweu [Mass/Vol]3.9 g/dL Normal3.5-5.2Mercy Stamford HospitalComment on above:Performed By: #### SUGEY, BERENICEK, UTCA #### [facility] [address] [place] [address] Ortho Tech: Vincent Sy MD [address] [place] [address] Ortho Tech: Sony Rinaldi MD #### UTMEHRAN, UTCRE #### [address] [place], [place] 4759283 Ortho Tech: Sony Rinaldi MDBasic Metabolic Profon 13-88-9273Jxyyg gap [Moles/Vol]10 mmol/LNormal9-17Mercy HealthComment on above:Performed By: #### UTPHO, UTK, UTCA #### [facility] [address] [place] [address] Ortho Tech: Vincent Sy MD [address] [place] [address] Ortho Tech: Sony Rinaldi MD #### UTMEHRAN, UTCRE #### [address] [place], [place] 30[address]83 Ortho Tech: Sony Rinaldi MDBUN/CRE Vpdeh26Krjetl9-27Oggsc [facility] Comment on above:Performed By: #### BERENICE MAYESK, UTCA #### [facility] [address] [place] [address] Ortho Tech: Vincent Sy MD [address] [place] [address] Ortho Tech: Sony Rinaldi MD #### KAVON, BERENICECRE #### [address] [place] [address] Ortho Tech: Sony Rinaldi MDCalcium [Mass/Vol]10.5 mg/dLHigh8.6-10.4Mercy HealthComment on above:Performed By: #### INEZ MAYES, UTCA #### [facility] [address] [place] [address] Ortho Tech: Vincent Sy MD [address] [place] [address] Ortho Tech: Sony Rinaldi MD #### KAVON, BERENICECRE #### [address] [place] [address] Ortho Tech: Sony Rinaldi MDChloride [Moles/Vol]108 mmol/QEujv15-092GyzqcMercy HealthComment on above:Performed By: #### BERENICE MAYESK, UTCA #### [facility] [address] [place] [address] Ortho Tech: Vincent Sy MD [address] [place] [address] Ortho Tech: Sony Rinaldi MD #### UTMEHRAN, UTCRE #### [address] [place] [address] Ortho Tech: Sony Rinaldi MDCO2 [Moles/Vol]22 mmol/DXutblw91-43DkdpvMercy HealthComment on above:Performed By: #### UTPHO, UTK, UTCA #### [facility] [address] [place] [address] Ortho Tech: Vincent Sy MD [address] [place] [address] Ortho Tech: Sony Rinaldi MD #### UTTP, UTCRE #### [address] [place], [place] 3842783 Ortho Tech: MELLY Shayreatinine [Mass/Vol]2.1 mg/dLHigh0.7-1.2MLouis Stokes Cleveland VA Medical CenterCommunising memorial hospital on above:Performed By: #### UTPSOPHIA, BERENICEK, UTCA #### [address] [address] Ortho Tech: Vincent Sy MD [address] [place], [place] [address]83 Ortho Tech: Sony Rinaldi MD #### UTMEHRAN, UTCRE #### [address] [place], [place] 7[address]83 Ortho Tech: Sony Rinaldi MDGFR/1.73 sq M.predicted among non-blacks MDRD (S/P/Bld) [Vol rate/Area]41 mL/min/{1.73_m2}Low>60Mercy HealthComment on above:Result Comment: These results are not [...] secretion.Performed By: #### UTPHO, UTK, UTCA #### [facility] [address] [place] [address] Ortho Tech: Vincent Sy MD [address] [place] [address] Ortho Tech: Sony Rinaldi MD #### UTTP, UTCRE #### [address] [place] [address] Ortho Tech: Sony Rinaldi MDGlucose [Mass/Vol]139 mg/uGErhf78-73VxfqxLouis Stokes Cleveland VA Medical CenterComment on above:Performed By: #### UTPHO, UTK, UTCA #### [facility] [address] [place] [address] Ortho Tech: Vincent Sy MD [address] [place] [address] Ortho Tech: Sony Rinaldi MD #### UTMEHRAN, UTCRE #### [address] [place] [address]83 Ortho Tech: DOLLY Shayotassium [Moles/Vol]4.8 mmol/LNormal3.7-5.3Mercy Escalon HospitalComment on above:Performed By: #### UTPSOPHIA, UTK, UTCA #### [facility] [address] [place] [address] Ortho Tech: Vincent Sy MD [address] [place], [facility]83 Ortho Tech: Sony Rinaldi MD #### KAVON, UTCRE #### [address] [place] [address] Ortho Tech: LISA Shayodium [Moles/Vol]140 mmol/ZBldvig573-981Ukjgg Stamford HospitalComment on above:Performed By: #### UTPHO, UTK, UTCA #### [facility] [address] [place] [address] Ortho Tech: Vincent Sy MD [address] [place], [place] 3308583 Ortho Tech: Sony Rinaldi MD #### UTTP, UTCRE #### [address] [place], [place] 1050883 Ortho Tech: Sony Rinaldi MDUrea nitrogen [Mass/Vol]29 mg/dLHigh6-20Mercy HealthComment on above:Performed By: #### UTPSOPHIA, BERENICEK, UTCA #### [address] [address] Ortho Tech: Vincent Sy MD [address] [place] [address] Ortho Tech: Sony Rinaldi MD #### KAVON, UTCRE #### [address] [place] [address]83 Ortho Tech: MELLY ShayChildren's [facility]cy [facility] 82-98-5417Kxkwyvjnbca distribution width (RBC) [Ratio]16.4 %High11.8-14.4Mercy HealthComment on above:Performed By: #### BERENICE MAYESK, UTCA #### [facility] [address] [place] [address] Ortho Tech: Vincent Sy MD [address] [place] [address]83 Ortho Tech: Sony Rinaldi MD #### KAVON, UTCRE #### [address] [place], [place] 8223583 Ortho Tech: Sony Rinaldi MDHematocrit (Bld) [Volume fraction]52.2 %High 40.7-50.3MLouis Stokes Cleveland VA Medical CenterComment on above:Performed By: #### UTPHO, UTK, UTCA #### [facility] [address] [place] [address] Ortho Tech: Vincent Sy MD [address] [place] 7868083 Ortho Tech: Sony Rinaldi MD #### UTTP, UTCRE #### [address] [place], [place] 70[address]83 Ortho Tech: Sony Rinaldi MDHemoglobin (Bld) [Mass/Vol]16.0 g/dLNormal 13.0-17.0[facility] Foundation HospitalComment on above:Performed By: #### UTPHO, UTK, UTCA #### [facility] [address] [place] [address] Ortho Tech: Vincent Sy MD [address] [address] [place] [id number] Ortho Tech: Sony Rinaldi MD #### UTMEHRAN, UTCRE #### [address] [place] [id number] Ortho Tech: JODEE ShayCH (RBC) [Entitic mass]26.3 opCclfgb94.2-33.5 [facility] HospitalComment on above:Performed By: #### UTPHO, UTK, UTCA #### [facility] [address] [place] [address] Ortho Tech: Vincent Sy MD [address] [place], [facility]83 Ortho Tech: Sony Rinaldi MD #### UTMEHRAN, UTCRE #### [address] [place], [place] [id number] Ortho Tech: JENS ShayC (RBC) [Mass/Vol]30.7 g/aXRpwgyu48.4-34.8[facility] HospitalComment on above:Performed By: #### UTPHO, UTK, UTCA #### [facility] [address] [place] [address] Ortho Tech: Vincent Sy MD [address] [place] [address] Ortho Tech: Sony Rinaldi MD #### KAVON, UTCRE #### [address] [place] [address] Ortho Tech: JODEE ShayCV (RBC) [Entitic vol]85.9 mUUjbitt44.6-102.9 [facility]cy HealthComment on above:Performed By: #### UTPBERENICE CORTESK, UTCA #### [address] [address] Ortho Tech: Vincent Sy MD [address] [place] [address] Ortho Tech: Sony Rinaldi MD #### KAVON, UTCRE #### [address] [place] [address] Ortho Tech: Sony Rinaldi MDNRBC Automated0.0 per 100 WBCNormal0.0Mercy HealthComment on above:Performed By: #### INEZ MAYES, UTCA #### [address] [address] Ortho Tech: Vincent Sy MD [address] [place] [address] Ortho Tech: Sony Rinaldi MD #### KAVON, UTCRE #### [address] [place], [facility]83 Ortho Tech: DOLLY Shaylatelet mean volume (Bld) [Entitic vol]10.0 fL Normal8.1-13.5Mercy HealthComment on above:Performed By: #### UTPHO, BERENICEK, UTCA #### [address] [address] Ortho Tech: Vincent Sy MD [address] [place] [address] Ortho Tech: Sony Rinaldi MD #### UTTP, UTCRE #### [address] [place] [address] Ortho Tech: Thu Shay (Bld) [#/Vol]267 10*3/zEAfxerz657-577 [facility] HealthComment on above:Performed By: #### UTPHO, UTK, UTCA #### [facility] [address] [place] [address] Ortho Tech: Vincent Sy MD [address] [place] [address] Ortho Tech: Sony Rinaldi MD #### UTTP, UTCRE #### [address] [place] [address] Ortho Tech: PETE Shay (d) [#/Vol]6.08 10*6/uLHigh4.21-5.77Mercy HealthComment on above:Performed By: #### UTPHO, UTK, UTCA #### [facility] [address] [place] [address] Ortho Tech: Vincent Sy MD [address] [place] [address] Ortho Tech: Sony Rinaldi MD #### UTTP, UTCRE #### [address] [place] [address] Ortho Tech: DE Shay (d) [#/Vol]8.9 10*3/uLNormal3.5-11.3MLouis Stokes Cleveland VA Medical CenterComment on above:Performed By: #### UTPHO, UTK, UTCA #### [facility] [address] [place] [address] Ortho Tech: Vincent Sy MD [facility] [address] [place] [address] [place] [address] Ortho Tech: Sony Rinaldi MD #### KAVON, BERENICECRE #### [address] [place], [place] [phone] Ortho Tech: SIMEON Shay, [place]acton 14-60-4016BTU, Yyzmsa636.1 pg/mLHigh 14.0-72.0Mercy HealthComment on above:Result Comment: SAMPLES FROM PATIENTS ROUTINELY RECEIVING HIGH DOSE BIOTIN THERAPY MAY SHOW FALSELY DEPRESSED RESULTS. ADDITIONAL INFORMATION MAY BE REQUIRED FOR DIAGNOSIS.Performed By: #### INEZ MAYES, BERENICECA #### [facility] [address] [place], [place] 1639108 Ortho Tech: Vincent Sy MD [address] [place], [place] [phone] Ortho Tech: Sony Rinaldi MD #### KAVON, ZITA #### [address] [place], [place] [phone] Ortho Tech: Dania Shaysphojimmie, Inorg.on 91-45-2129Knkxzaozbn, Inorg. 3.1 mg/dLNormal2.5-4.5Mercy HealthComment on above:Performed By: #### INEZ MAYES, BERENICECA #### [facility] [address] [place] [address] Ortho Tech: Vincent Sy MD [address] [place], [place] [phone] Ortho Tech: Sony Rinaldi MD #### KAVON, UTCRE #### [address] [place], [place] [phone] Ortho Tech: Sony Rinaldi MDAlbuminon 00-28-9392Cdjidxn [Mass/Vol]4.3 g/dL3.5 - 5.2 g/dLBON [facility] NovitazBasic Metabolic Panelon 92-90-2560Iumfo gap [Moles/Vol]9 mmol/L9 - 17 mmol/LBON [facility] HEALTHCalcium [Mass/Vol]12.0 mg/dLHigh8.6 - 10.4 mg/dLBON [facility] MERCY HEALTHChloride [Moles/Vol]109 mmol/L High98 - 107 mmol/LBON [facility] HEALTHCO2 [Moles/Vol]24 mmol/L20 - 31 mmol/LBON [facility] HEALTHCreatinine [Mass/Vol]1.95 mg/dLHigh0.70 - 1.20 mg/dLBON SECOURS Si[employer] Processing HEALTHGFR/1.73 sq M.predicted MDRD (S/P/Bld) [Vol rate/Area]44 mL/min/{1.73_m2}Low- PINFBON SECLIFEPOINT HEALTHCV-Sight MERCY HEALTHComment on above: These results are not [...] secretion. Glucose [Mass/Vol]93 mg/dL70 - 99 mg/dLBON CLEARSKY [facility]IL[facility]OSPITAL OF AVONDALEFrensenius Vascular CareInterpretation and review of laboratory resultsAbnormalBON [facility] SiC Processing HEALTHPotassium [Moles/Vol]5.1 mmol/L3.7 - 5.3 mmol/LBON [facility] SiC Processing [facility] HEALTHSodium [Moles/Vol] 142 mmol/L135 - 144 mmol/LBON [facility] PaySimple HEALTHUrea nitrogen [Mass/Vol]28 mg/dLHigh6 - 20 mg/dLBON SECLIFEPOINT HEALTHiGlueUrea nitrogen/Creatinine [Mass ratio]14 mg/mg9 - 20BON C[facility]INAI MEDICAL CENTERiGlueCBC with Auto Differentialon 99-22-7557Mqfdwribf (Bld) [#/Vol]0.04 10*3/uLBON SECEvino HEALTH Basophils/100 WBC (Bld)1 %0 - 2 %BON [facility]-SINAI MEDICAL CENTERCV-Sight MERCY HEALTHEosinophils (Bld) [#/Vol]0.13 10*3/uLBON [facility]KY [facility]ABILIT[facility]OSPITAL OF AVONDALEOURS PROMEDICA FLOWER HOSPITALEosinophils/100 WBC (Bld)2 %1 - 4 % [facility] HEALTH CENTERErythrocyte distribution width (RBC) [Ratio]15.9 %High 11.8 - 14.4 %[facility] HEALTH CENTERHematocrit (Bld) [Volume fraction]47.0 % 40.7 - 50.3 %[facility]IOR[facility] HEALTH CENTERHemoglobin (Bld) [Mass/Vol]14.6 g/dL13.0 - 17.0 g/dLBON SECHOLMES COUNTY JOEL POMERENE MEMORIAL HOSPITALImmature granulocytes (Bld) [#/Vol]BON [facility] OF AVONDALEOURS PROMEDICA FLOWER HOSPITALImmature granulocytes/100 WBC (Bld)0 %0[facility] Interpretation and review of laboratory resultsAbnormalRIVERSIDE [facility]IOR[facility]ENTER Lymphocytes/100 WBC (Bld)38 %24 - 43 %[facility]AVIOR[facility] HEALTH CENTERLymphocytes/100 WBC (Bld)2.98 %[facility] PORTSMOUTHH (RBC) [Entitic mass]27.5 pg25.2 - 33.5 pgBON DOCTORS HOSPITALHC (RBC) [Mass/Vol]31.1 g/dL28.4 - 34.8 g/dLBON DOCTORS HOSPITALV (RBC) [Entitic vol]88.5 fL82.6 - 102.9 fLRIVERSIDE BEHAVIORAL HEALTH CENTERMonocytes/100 WBC (Bld)10 %3 - 12 %[facility] Monocytes/100 WBC (Bld)0.82 %[facility] HEALTH CENTERNeutrophils/100 WBC (Bld)49 %36 - 65 %[facility]AVIOR[facility] HEALTH CENTERNRBC Automated0.00.0 per 100 WBCRIVERSIDE BEHAVIORAL HEALTH CENTERPlatelet mean volume (Bld) [Entitic vol]9.6 fL8.1 - 13.5 fLRIVERSIDE BEHAVIORAL HEALTH CENTERPlatelets (Bld) [#/Vol]327 10*3/uLBON [facility] RBC (Bld) [#/Vol]5.31 10*6/uL4.21 - 5.77 m/uLBON [facility] L[facility]AIN HOSPITALSegmented neutrophils/100 WBC (Bld)3.91 %[facility]HAVIORAL HEALTH CENTERWBC other (Bld) [#/Vol] 7.9BON [facility] SECHOLMES COUNTY [facility]OMER[facility] MEMORIAL HOSPITALCreatinine, Random Urineon 12-58-6207Wjwmroqhju (U) [Mass/Vol]67.6 mg/dL39.0 - 259.0 mg/dLBON [facility] HOSPITALBON SECL[facility]ISIA[facility] HEALTHMagnesiumon 50-50-1876Wwycrphjb [Mass/Vol]2.0 mg/dL1.6 - 2.6 mg/dLBON [facility] HOSPITALNo Panel Informationon 95-83-6193JGZ [facility] HOSPITALPhosphoruson 16-97-8742Atoaqpyws [Mass/Vol]3.0 mg/dL2.5 - 4.5 mg/dLBON [facility] HOSPITALProtein, urine, randomon 51-60-6221Uqipozr (U) [Mass/Vol]50 mg/dLBON [facility] LORAIN HOSPITALComment on above:No normal range established.BON [facility]AIN HOSPITALBasic Metab w/rfx MGon 93-03-6730Cembf gap [Moles/Vol]9 mmol/LNormal9-17Uc HealthComment on above: Performed By: #### RICHIE BROWNHGHayden, CDP #### [facility] [address] [place] [address] Ortho Tech: MELLY Pereyraalcium [Mass/Vol]10.0 mg/dLNormal8.6-10.4Uc HealthComment on above:Performed By: #### PT GLYHGB, CDP #### [facility] [address] [place] [address] Ortho Tech: MELLY Pereyrahloride [Moles/Vol]110 mmol/CVmoc58-807JuvjuUc HealthComment on above:Performed By: #### PT GLYHGB, CDP #### [facility] [address] [place] [address] Ortho Tech: Vincent Sy MDCO2 [Moles/Vol]17 mmol/AYdy08-53GggmrUc HealthComment on above:Performed By: #### PT, GLYHGB, CDP #### [facility] [address] [place] [address] Ortho Tech: MELLY Pereyrareatinine [Mass/Vol]2.05 mg/dLHigh0.70-1.20 Uc HealthComment on above:Performed By: #### PT, GLYHGB, CDP #### [facility] [address] [place] [address] Ortho Tech: Vincent Sy MDGFR/1.73 sq M.predicted among non-blacks MDRD (S/P/Bld) [Vol rate/Area]42 mL/min/{1.73_m2}Low>60Uc HealthComment on above:Result Comment: These results are not [...] secretion.Performed By: #### STEPHANIE GLYHGB, CDP #### [facility] [address] [place] [address] Ortho Tech: Vincent Sy MDGlucose [Mass/Vol]122 mg/sZJgfa82-28YwtmjScripps Mercy HospitalComment on above:Performed By: #### PT, GLYHGB, CDP #### [facility] [address] [place] [address] Ortho Tech: DOLLY Pereyraotassium [Moles/Vol]5.8 mmol/LHigh3.7-5.3MScripps Mercy HospitalComment on above:Performed By: #### PT, GLYHGB, CDP #### [facility] [address] [place] [address] Ortho Tech: Vincent Sy MDSodium [Moles/Vol]136 mmol/IUbkwrx785-980GifnzUc HealthComment on above:Performed By: #### PT, GLYHGB, CDP #### [facility] [address] [place] [address] Ortho Tech: Vincent Sy MDUrea nitrogen [Mass/Vol]37 mg/dLHigh6-20Uc HealthComment on above:Performed By: #### PT, GLYHGB, CDP #### [facility] [address] [place] [address] Ortho Tech: Vincent Sy MDPlatelet Counton 07-33-0051Bgdhaqydp (Bld) [#/Vol]267 10*3/oICumgcp858-439HsgmeUc HealthComment on above: Performed By: #### PLT #### [facility] [address] [place] [address] Ortho Tech: Vincent Sy MDAlbuminon 85-34-6662Zfbmfhp [Mass/Vol]4.2 g/dL 3.5 - 5.2 g/dLBON [facility] MERCY HEALTHBasic Metabolic Panelon 11-98-5583Aqewh gap [Moles/Vol]12 mmol/L9 - 17 mmol/LBON [facility] HEALTHCalcium [Mass/Vol] 11.3 mg/dLHigh8.6 - 10.4 mg/dLBON [facility] HEALTHChloride [Moles/Vol]107 mmol/L98 - 107 mmol/LBON [facility] HEALTHCO2 [Moles/Vol]19 mmol/LLow20 - 31 mmol/LBON [facility] HEALTHCreatinine [Mass/Vol]2.34 mg/dLHigh0.70 - 1.20 mg/dLBON [facility] HEALTHGFR/1.73 sq M.predicted MDRD (S/P/Bld) [Vol rate/Area]36 mL/min/{1.73_m2}Low- PINFBON SECOURS PaySimpleY HEALTHComment on above: These results are not [...] that affects renal tubular secretion. Glucose [Mass/Vol]106 mg/aUXngb69 - 99 mg/dLBON [facility] Interpretation and review of laboratory resultsAbnormalRIVERSIDE BEHAVIORAL [facility]ENTER Potassium [Moles/Vol]5.4 mmol/LHigh3.7 - 5.3 mmol/LBON [facility] Sodium [Moles/Vol]138 mmol/L135 - 144 mmol/LBON [facility]ORAIN HOSPITALUrea nitrogen [Mass/Vol]42 mg/dLHigh6 - 20 mg/dLBON [facility] LORAIN HOSPITALUrea nitrogen/Creatinine (Bld) [Mass ratio]189 - 20BON [facility] HOSPITALCBCon 21-07-4335Pwooykhmeb (Bld) [Volume fraction]39.5 %Low40.7 - 50.3 %[facility]IORAL HEALTH CENTERHemoglobin (Bld) [Mass/Vol]12.2 g/dLLow13.0 - 17.0 g/dLBON [facility] HOSPITALInterpretation and review of laboratory resultsAbnormalNAVAL MEDICAL CENTER PORTSMOUTHH (RBC) [Entitic mass]27.1 pg25.2 - 33.5 pgBON DOCTORS HOSPITALHC (RBC) [Mass/Vol]30.9 g/dL28.4 - 34.8 g/dLBON DOCTORS HOSPITALV (RBC) [Entitic vol]87.8 fL82.6 - 102.9 fLRIVERSIDE BEHAVIORAL HEALTH CENTERNRBC Automated 0.00.0 per 100 WBCBON [facility] LORAIN HOSPITALPlatelet distribution width (Bld) [Ratio]14.1 %11.8 - 14.4 %BON [facility] HOSPITALPlatelet mean volume (Bld) [Entitic vol]9.7 fL8.1 - 13.5 fLINOVA LOUDOUN HOSPITAL HEALTHPlatelets (Bld) [#/Vol] 425 10*3/uLBON [facility] HOSPITALRBC (Bld) [#/Vol]4.50 10*6/uL4.21 - 5.77 m/uL R[facility]HAVIORAL HEALTH CENTERWBC (Bld) [#/Vol]6.9 10*3/uLJOHN RANDOLPH MEDICAL CENTERCalcium, Ionizedon 06-85-0820Qtlnfyw.ionized (Bld) [Moles/Vol]1.51 mmol/LHigh1.13 - 1.33 mmol/LBON [facility] Interpretation and review of laboratory resultsAbnormalRIVERSIDE BEHAVIORAL HEALTH CENTER BON [facility]ITALNo Panel Informationon 29-25-5950WTT [facility]ORAIN HOSPITALPTH, Intacton 59-27-6669Pyifihsavjubsf and review of laboratory results AbnormalBON [facility] LORAIN HOSPITALParathyrin.intact [Mass/Vol]248.7 pg/hXQbou68.0 - 72.0 pg/mLRIVERSIDE BEHAVIORAL HEALTH CENTERComment on above:SAMPLES FROM PATIENTS ROUTINELY RECEIVING HIGH DOSE BIOTIN THERAPY MAY SHOW FALSELY DEPRESSED RESULTS. ADDITIONAL INFORMATION MAY BE REQUIRED FOR DIAGNOSIS. [facility]IOR[facility] HEALTH CENTERPhosphoruson 94-34-6714Lxjxycsrw [Mass/Vol]3.1 mg/dL2.5 - 4.5 mg/dLBON [facility] HOSPITALProtein / creatinine ratio, urineon 18-39-0734Fcesmznhel, Ur89.3 mg/dL39.0 - 259.0 mg/dLBON [facility] Interpretation and review of laboratory resultsAbnoSentara Leigh Hospital Protein (U) [Mass/Vol]28 mg/dLBON [facility] HOSPITALComment on above:No normal range established.Urine Total Protein Creatinine Ratio0.21Vkyb1.00 - 0.20J[facility] MEDICAL CENTERBasic Metabolic Panelon 06-06-2022 Anion gap [Moles/Vol]12 mmol/L9 - 17 mmol/LBON [facility] WurlCalcium [Mass/Vol]9.6 mg/dL8.6 - 10.4 mg/dLBON [facility] HOSPITALChloride [Moles/Vol] 99 mmol/L98 - 107 mmol/LBON [facility] HOSPITALCO2 [Moles/Vol]21 mmol/L20 - 31 mmol/LBON [facility] HOSPITALCreatinine [Mass/Vol]2.01 mg/dLHigh0.70 - 1.20 mg/dLBON [facility] HOSPITALGFR/1.73 sq M.predicted MDRD (S/P/Bld) [Vol rate/Area]43 mL/min/{1.73_m2}Low- PINFBON [facility] LORAIN HOSPITALGlucose [Mass/Vol] 144 mg/vJAekn65 - 99 mg/dLBON [facility] HOSPITALInterpretation and review of laboratory resultsAbnormalBON [facility] HOSPITALPotassium [Moles/Vol]4.3 mmol/L3.7 - 5.3 mmol/LBON [facility] L[facility] HOSPITALSodium [Moles/Vol]132 mmol/JXxm288 - 144 mmol/LBON [facility] HOSPITALUrea nitrogen [Mass/Vol]27 mg/dLHigh6 - 20 mg/dLBON [facility] HOSPITALBasic Metabolic Profon 67-74-0921Baibb gap [Moles/Vol]12 mmol/LNormal9-17Uc HealthComment on above: Performed By: #### PT, GLYHGB, CDP #### [facility] [address] [place] [address] Ortho Tech: MELLY Pereyraalcium [Mass/Vol]9.6 mg/dLNormal8.6-10.4Uc HealthComment on above:Performed By: #### PT GLYHGB, CDP #### [facility] [address] [place] [address] Ortho Tech: MELLY Pereyrahloride [Moles/Vol]99 mmol/OKygtah96-785GksscUc HealthComment on above:Performed By: #### PT, GLYHGB, CDP #### [facility] [address] [place] [address] Ortho Tech: Vincent Sy MDCO2 [Moles/Vol]21 mmol/CEhmreq37-58BuvntUc HealthComment on above:Performed By: #### PT, GLYHGB, CDP #### [facility] [address] [place] [address] Ortho Tech: MELLY Pereyrareatinine [Mass/Vol]2.01 mg/dLHigh0.70-1.20 Uc HealthComment on above:Performed By: #### RICHIE BROWNHGB, CDP #### [address] [address] Ortho Tech: Vincent Sy MDGFR/1.73 sq M.predicted among non-blacks MDRD (S/P/Bld) [Vol rate/Area]43 mL/min/{1.73_m2}Low>60Uc HealthComment on above:Result Comment: These results are not [...] secretion.Performed By: #### BRITTANEY BROWN, CDP #### [facility] [address] [place] [address] Ortho Tech: Vincent Sy MDGlucose [Mass/Vol]144 mg/yMGcle12-90VxmjhScripps Mercy HospitalComment on above:Performed By: #### BRITTANEY BROWN, CDP #### [facility] [address] [place] [address] Ortho Tech: Vincent Sy MDPotassium [Moles/Vol]4.3 mmol/LNormal3.7-5.3 Uc HealthComment on above:Performed By: #### STEPHANIE GLYHGHayden, CDP #### [facility] [address] [place] [address] Ortho Tech: LISA Pereyraodium [Moles/Vol]132 mmol/QLri358-513AhyqiUc HealthComment on above:Performed By: #### PT, GLYHGB, CDP #### [facility] [address] [place] [address] Ortho Tech: Vincent Sy MDUrea nitrogen [Mass/Vol]27 mg/dLHigh6-20Uc HealthComment on above:Performed By: #### PT, GLYHGB, CDP #### [facility] [address] [place] [address] Ortho Tech: MELLY Pereyraastrid 44-22-9356Eargaueabjt distribution width (RBC) [Ratio]13.2 %Zqskjk76.8-14.4Uc HealthComment on above:Performed By: #### PT, GLYHGB, CDP #### [facility] [address] [place] [address] Ortho Tech: Vincent Sy MDHematocrit (Bld) [Volume fraction]30.3 %Low 40.7-50.3MScripps Mercy HospitalComment on above:Performed By: #### PT, GLYHGB, CDP #### [facility] [address] [place] [address] Ortho Tech: Vincent Sy MDHemoglobin (Bld) [Mass/Vol]10.1 g/dLLow13.0-17.0 Uc HealthComment on above:Performed By: #### PT, GLYHGB, CDP #### [facility] [address] [place] [address] Ortho Tech: JODEE PereyraCH (RBC) [Entitic mass]29.8 xjMsjyzi08.2-33.5 Uc HealthComment on above:Performed By: #### PT, GLYHGB, CDP #### [facility] [address] [place] [address] Ortho Tech: JODEE PereyraCHC (RBC) [Mass/Vol]33.3 g/jZXylpii76.4-34.8 Uc HealthComment on above:Performed By: #### PT, GLYHGB, CDP #### [facility] [address] [place] [address] Ortho Tech: TOOTIE Pereyra (RBC) [Entitic vol]89.4 oSByniea35.6-102.9 Uc HealthComment on above:Performed By: #### PT, GLYHGB, CDP #### [facility] [address] [place] [address] Ortho Tech: BRAYDON Pereyra Automated0.0 per 100 WBCNormal0.0Uc HealthComment on above:Performed By: #### PT, GLYHGB, CDP #### [facility] [address] [place] [address] Ortho Tech: Jeffrey Pereyra mean volume (Bld) [Entitic vol]10.0 fL Normal8.1-13.5Uc HealthComment on above:Performed By: #### PT, GLYHGB, CDP #### [facility] [address] [place] [address] Ortho Tech: Thu Pereyra (Bld) [#/Vol]243 10*3/vDWplewj148-566 Uc HealthComment on above:Performed By: #### PT, GLYHGB, CDP #### [facility] [address] [place] [address] Ortho Tech: MARSHA PereyraBC (Bld) [#/Vol]3.39 10*6/uLLow4.21-5.77Uc HealthComment on above:Performed By: #### PT, GLYHGB, CDP #### [facility] [address] [place] [address] Ortho Tech: Vincent Madoff, MDWBC (Bld) [#/Vol]11.3 10*3/uLNormal3.5-11.3[facility]. Joseph'S HospitalComment on above:Performed By: #### BRITTANEY BROWN CDP #### [facility] [address] [place] [address] Ortho Tech: Vincent Sy MDHematocrit (Bld) [Volume fraction]30.3 %Low40.7 - 50.3 %[facility] HEALTH CENTERHemoglobin (Bld) [Mass/Vol]10.1 g/dLLow13.0 - 17.0 g/dLBON [facility] HOSPITALInterpretation and review of laboratory results AbnormalBON DOCTORS HOSPITALH (RBC) [Entitic mass]29.8 pg25.2 - 33.5 pgBON DOCTORS HOSPITALHC (RBC) [Mass/Vol]33.3 g/dL28.4 - 34.8 g/dLBON [facility] MEDICAL CENTERV (RBC) [Entitic vol]89.4 fL82.6 - 102.9 fLRIVERSIDE BEHAVIORAL HEALTH CENTERNRBC Automated0.00.0 per 100 WBCBON [facility] LORAIN HOSPITALPlatelet distribution width (Bld) [Ratio]13.2 %11.8 - 14.4 %[facility] Platelet mean volume (Bld) [Entitic vol]10.0 fL8.1 - 13.5 fLINOVA LOUDOUN HOSPITAL HEALTHPlatelets (Bld) [#/Vol]243 10*3/uLBON [facility] LORAIN HOSPITALRBC (Bld) [#/Vol]3.39 10*6/uLLow4.21 - 5.77 m/uLBON [facility] LORAIN HOSPITALWBC (Bld) [#/Vol] 11.3 10*3/uLBON [facility] HOSPITALCalcium, Ionicon 97-72-4578Tnqnwpo [Moles/Vol]1.32 mmol/LNormal1.13-1.33[facility]. Joseph'S HospitalComment on above:Performed By: #### BRITTANEY BROWN CDP #### [facility] [address] [place], [place] [phone] Ortho Tech: Vincent Sy MDCalcium, Ionizedon 56-58-7670Ryrfwgn.ionized (Bld) [Moles/Vol]1.32 mmol/L1.13 - 1.33 mmol/LBON [facility]IONAL HOSPITALMagnesiumon 92-61-5072Oiaqtthjx [Mass/Vol]2.1 mg/dLNormal 1.6-2.6[facility] Joseph'S HospitalComment on above:Performed By: #### PT, GLYHGB, CDP #### [facility] [address] [place], [place] [id number] Ortho Tech: Vincent Sy MDMagnesium [Mass/Vol]2.1 mg/dL1.6 - 2.6 mg/dLBON [facility]AIN HOSPITALNo Panel Informationon 66-26-7662IYU [facility] Glucose Fingerstickon 13-88-9919Przfgvx [Mass/Vol]175 mg/uMHukw41 - 110 mg/dL [facility] CENTERInterpretation and review of laboratory resultsAbnormal [facility]ICAL CENTERGlucose [Mass/Vol]133 mg/dLHigh 75 - 110 mg/dLBON [facility] LORAIN HOSPITALInterpretation and review of laboratory resultsAbnormalJOHN RANDOLPH MEDICAL CENTERXR CHEST PORTABLE on 92-97-2510RD CHEST PORTABLEEXAMINATION: ONE X-RAY VIEW OF THE [...] by: Cholo Restrepo MD 06/06/[address] Joseph'S HospitalXR CHEST PORTABLEEXAMINATION: ONE XRAY VIEW OF THE [...] Signed by: David Gabriel MD 06/05/22 Final resultNormalMerNaval Hospital LemooreBasic Metabolic Panelon 96-30-1070Btvnu gap [Moles/Vol]8 mmol/LLow9 - 17 mmol/LBON [facility] Calcium [Mass/Vol]9.1 mg/dL8.6 - 10.4 mg/dLBON [facility] MERCY HEALTHChloride [Moles/Vol]102 mmol/L98 - 107 mmol/LBON [facility] HEALTHCO2 [Moles/Vol]22 mmol/L20 - 31 mmol/LBON [facility] HEALTHCreatinine [Mass/Vol]2.28 mg/dLHigh 0.70 - 1.20 mg/dLBON SECOURS MERCY HEALTHGFR/1.73 sq M.predicted MDRD (S/P/Bld) [Vol rate/Area]37 mL/min/{1.73_m2}Low- PINFBON SECOURS MERCY HEALTHGlucose [Mass/Vol]150 mg/lYJplw05 - 99 mg/dLBON SECOURS MERCY HEALTHInterpretation and review of laboratory resultsAbnormalBON [facility]OURS MERCY HEALTHPotassium [Moles/Vol]4.8 mmol/L3.7 - 5.3 mmol/LBON [facility] HEALTHSodium [Moles/Vol] 132 mmol/PGpj929 - 144 mmol/LBON [facility] HEALTHUrea nitrogen [Mass/Vol]23 mg/dLHigh6 - 20 mg/dLBON SECOURS MERCY HEALTHBasic Metabolic Profon 06-05-2022 Anion gap [Moles/Vol]8 mmol/LLow9-17Uc HealthComment on above:Performed By: #### PLT #### [address] [address] Ortho Tech: MELLY Pereyraalcium [Mass/Vol]9.1 mg/dLNormal8.6-10.4Uc HealthComment on above:Performed By: #### PLT #### [facility] [address] [place] [id number] Ortho Tech: Vincent Sy MDChloride [Moles/Vol]102 mmol/LQrgsnp91-278PmviaUc HealthComment on above:Performed By: #### PLT #### [address] [address] Ortho Tech: Vincent Sy MDCO2 [Moles/Vol]22 mmol/UTzmqmm77-89YtjqaUc HealthComment on above:Performed By: #### PLT #### [address] [address] Ortho Tech: MELLY Pereyrareatinine [Mass/Vol]2.28 mg/dLHigh0.70-1.20 Uc HealthComment on above:Performed By: #### PLT #### [address] [address] Ortho Tech: Vincent Sy MDGFR/1.73 sq M.predicted among non-blacks MDRD (S/P/Bld) [Vol rate/Area]37 mL/min/{1.73_m2}Low>60MerNaval Hospital LemooreComment on above:Result Comment: These results are not [...] renal tubular secretion.Performed By: #### PLT #### [address] [address] Ortho Tech: Vincent Sy MDGlucose [Mass/Vol]150 mg/tNZfhn56-31UidqxScripps Mercy HospitalComment on above:Performed By: #### PLT #### [address] [address] Ortho Tech: Vincent Sy MDPotassium [Moles/Vol]4.8 mmol/LNormal3.7-5.3 Uc HealthComment on above:Performed By: #### PLT #### [address] [address] Ortho Tech: LISA Pereyraodium [Moles/Vol]132 mmol/ANaf214-882MexigUc HealthComment on above:Performed By: #### PLT #### [address] [address] Ortho Tech: Vincent Sy MDUrea nitrogen [Mass/Vol]23 mg/dLBoone Memorial Hospital6-20Uc HealthComment on above:Performed By: #### PLT #### [address] [address] Ortho Tech: Chinmay Pereyra 05-40-2811Vexdpmmcqed distribution width (RBC) [Ratio]13.2 %Pznkbl17.8-14.4Uc HealthComment on above:Performed By: #### PLT #### [facility] [employer] [address] [place] [id number] Ortho Tech: Vincent Sy MDHematocrit (Bld) [Volume fraction]32.3 %Low 40.7-50.3MScripps Mercy HospitalComment on above:Performed By: #### PLT #### [address] [address] Ortho Tech: Vincent Sy MDHemoglobin (Bld) [Mass/Vol]10.3 g/dLLow13.0-17.0 Uc HealthComment on above:Performed By: #### PLT #### [address] [address] Ortho Tech: JODEE PereyraCH (RBC) [Entitic mass]29.5 myLqnnzq89.2-33.5 Uc HealthComment on above:Performed By: #### PLT #### [address] [address] Ortho Tech: JODEE PereyraCHC (RBC) [Mass/Vol]31.9 g/jJFjtjcz75.4-34.8 Uc HealthComment on above:Performed By: #### PLT #### [place] [address] Ortho Tech: JODEE PereyraCV (RBC) [Entitic vol]92.6 vKGdhdgy05.6-102.9 Uc HealthComment on above:Performed By: #### PLT #### [address] [address] Ortho Tech: Vincent Sy MDNRBC Automated0.0 per 100 WBCNormal0.0Uc HealthComment on above:Performed By: #### PLT #### [address] [address] Ortho Tech: DOLLY Pereyralatelet mean volume (Bld) [Entitic vol]10.7 fL Normal8.1-13.5Uc HealthComment on above:Performed By: #### PLT #### [address] [address] Ortho Tech: DOLLY Pereyralatelets (Bld) [#/Vol]179 10*3/rDZmsdbc950-768 Uc HealthComment on above:Performed By: #### PLT #### [facility] [place] [address] Ortho Tech: MARSHA PereyraBC (Bld) [#/Vol]3.49 10*6/uLLow4.21-5.77[facility] Joseph'S HospitalComment on above:Performed By: #### PLT #### [facility]Nat[facility] Laboratories [facility] [place] [address] Ortho Tech: Vincent Sy MDWBC (Bld) [#/Vol]11.8 10*3/uLHigh3.5-11.3MScripps Mercy HospitalComment on above:Performed By: #### PLT #### [facility] [employer] [address] [place] [address] [phone] Ortho Tech: Vincent Sy MDHematocrit (Bld) [Volume fraction]32.3 %Low40.7 - 50.3 %[facility] HEALTH CENTERHemoglobin (Bld) [Mass/Vol]10.3 g/dLLow13.0 - 17.0 g/dLBON MER[facility] LORAIN HOSPITALInterpretation and review of laboratory results AbnormalNAVAL MEDICAL CENTER PORTSMOUTHH (RBC) [Entitic mass]29.5 pg25.2 - 33.5 pgNAVAL MEDICAL CENTER PORTSMOUTHHC (RBC) [Mass/Vol]31.9 g/dL28.4 - 34.8 g/dLBON DOCTORS HOSPITALV (RBC) [Entitic vol]92.6 fL82.6 - 102.9 fLRIVERSIDE BEHAVIORAL HEALTH CENTERNRBC Automated0.00.0 per 100 WBCRIVERSIDE BEHAVIORAL HEALTH CENTERPlatelet distribution width (Bld) [Ratio]13.2 %11.8 - 14.4 %[facility] Platelet mean volume (Bld) [Entitic vol]10.7 fL8.1 - 13.5 fLRIVERSIDE BEHAVIORAL HEALTH CENTERPlatelets (Bld) [#/Vol]179 10*3/uLBON [facility] LORAIN HOSPITALRBC (Bld) [#/Vol]3.49 10*6/uLLow4.21 - 5.77 m/[facility] Mary's HospitalWBC (Bld) [#/Vol] 11.8 10*3/uLHighBON LEAD-DEADWOOD REGIONAL HOSPITALCalcium, Ionicon 06-19-4209Uulfeye [Moles/Vol]1.25 mmol/LNormal1.13-1.33Uc HealthComment on above:Performed By: #### PLT #### [facility] [address] [place], [place] [phone] Ortho Tech: Vincent Sy MDCalcium, Ionizedon 46-88-2765Scvmhqh.ionized (Bld) [Moles/Vol]1.25 mmol/L1.13 - 1.33 mmol/LBON LEAD-DEADWOOD REGIONAL HOSPITALMagnesiumon 67-12-1850Zvvltovyx [Mass/Vol]2.3 mg/dLNormal 1.6-2.6MercSt. John's Hospital CamarilloComment on above:Performed By: #### PLT #### RUN [address] [place] [address] Ortho Tech: Vincent Sy MDMagnesium [Mass/Vol]2.3 mg/dL1.6 - 2.6 mg/dLBON MER[facility]AIN HOSPITALNo Panel Informationon 41-37-2226ZMX [facility] OPERATIVE REPORTon 49-01-8977AMXOXZFPP REPORT[address] [id number] OPERATIVE REPORT PATIENT NAME: ELIAS WALKER : 1985 MED REC NO: [id number] ROOM: 2022 ACCOUNT NO: [id number] ADMIT DATE: 05/23/2022 PROVIDER: Ariel Purdy MD [...] with an excel (more content not included)...NormalMercy Mayers [facility] Glucose Fingerstickon 31-10-8812Fvcncjq [Mass/Vol]226 mg/xTCpuc55 - 110 mg/dLBON CLEARSKY REHABILITATION HOSPITAL OF AVONDALEFrensenius Vascular Care Interpretation and review of laboratory resultsAbnormalINOVA LOUDOUN HOSPITAL Wurl [facility] NovitazGlucose [Mass/Vol]213 mg/tOCrtj07 - 110 mg/dLBON CLEARSKY [facility]HABIL[facility]ATION HOSPITAL OF AVONDALEFrensenius Vascular CareInterpretation and review of laboratory resultsAbnormalBON LEAD-DEADWO[facility] REGIONAL HOSPITALGlucose [Mass/Vol]218 mg/uBOamq44 - 110 mg/dLBON SECOURS MERCY HEALTHInterpretation and review of laboratory results AbnormalBON D and K interprisesBON SECEvino HEALTHXR CHEST PORTABLEon 57-59-1812CSWK RIS [facility] HOSPITALSpinX Technologies [facility] Wurl Work Phone: radiology Study observation (narrative)DAVION [employer] Work Phone: XR CHEST PORTABLEEXAMINATION: ONE XRAY [...] Signed by: Akira Augustin MD 06/05/22 Final resultNormalNorth Ridge Medical CenterFrensenius Vascular Care Work Phone: radiology Study observation (narrative)[facility] D and K interprises Work Phone: xr CHEST PORTABLEOrdered By: David Gabriel on 06-05-2022 [facility] D and K inter[employer] Work Phone: XR CHEST PORTABLEOrdered By: Akira Augustin on 13-80-8288GRC D [employer] K inter[employer] Work Phone: Basic Metabolic Panelon 06-13-5606Vxjrc gap [Moles/Vol]11 mmol/L9 - 17 mmol/LBON SECOURS MERCY HEALTHCalcium [Mass/Vol]9.0 mg/dL8.6 - 10.4 mg/dLBON SECOURS MERCY HEALTHChloride [Moles/Vol]102 mmol/L98 - 107 mmol/LBON SECOURS PaySimpleY HEALTHCO2 [Moles/Vol]21 mmol/L20 - 31 mmol/LBON [facility]RS MERCY HEALTHCreatinine [Mass/Vol]2.35 mg/dLHigh0.70 - 1.20 mg/dLBON MER[facility] LORAIN HOSPITALGFR/1.73 sq M.predicted MDRD (S/P/Bld) [Vol rate/Area]36 mL/min/{1.73_m2}Low- PINFBON MER[facility]ALTH LORAIN HOSPITALGlucose [Mass/Vol]192 mg/dLHigh 70 - 99 mg/dLBON [facility] LORAIN HOSPITALInterpretation and review of laboratory resultsAbnormalBON [facility] L[facility]AIN HOSPITALPotassium [Moles/Vol]4.9 mmol/L3.7 - 5.3 mmol/LBON [facility] HEALTH LORAIN HOSPITALSodium [Moles/Vol]134 mmol/UUrx337 - 144 mmol/LBON [facility] LORAIN HOSPITALUrea nitrogen [Mass/Vol]24 mg/dLHigh6 - 20 mg/dLBON [facility]AIN HOSPITALBasic Metabolic Profon 44-34-5578Rosjt gap [Moles/Vol]11 mmol/L Normal9-17Uc HealthComment on above:Performed By: #### PT GLYHGB, CDP #### RUN [address] [place] [address] Ortho Tech: MELLY Pereyraalcium [Mass/Vol]9.0 mg/dLNormal8.6-10.4Uc HealthComment on above:Performed By: #### PT GLYHGB, CDP #### RUN [facility] [place] [phone] Ortho Tech: MELLY Pereyrahloride [Moles/Vol]102 mmol/CYwaggu48-134CtgedUc HealthComment on above:Performed By: #### PT, GLYHGB, CDP #### RUN [address] [place] [address] Ortho Tech: iVncent Sy MDCO2 [Moles/Vol]21 mmol/CYcgaac08-70AvvimUc HealthComment on above:Performed By: #### PT, GLYHGB, CDP #### RUN [address] [place] [address] Ortho Tech: MELLY Pereyrareatinine [Mass/Vol]2.35 mg/dLHigh0.70-1.20 Uc HealthComment on above:Performed By: #### BRITTANEY BROWN, CDP #### [address] [address] Ortho Tech: Vincent Sy MDGFR/1.73 sq M.predicted among non-blacks MDRD (S/P/Bld) [Vol rate/Area]36 mL/min/{1.73_m2}Low>60Uc HealthComment on above:Result Comment: These results are not [...] secretion.Performed By: #### BRITTANEY BROWN, CDP #### [facility] [employer] [address] [place] [address] Ortho Tech: Vincent Sy MDGlucose [Mass/Vol]192 mg/nQZilk69-56Mvwab St. Joseph'S HospitalComment on above:Performed By: #### BRITTANEY BROWN, CDP #### [facility] [employer] [address] [place] [address] Ortho Tech: Vincent Sy MDPotassium [Moles/Vol]4.9 mmol/LNormal3.7-5.3 Uc HealthComment on above:Performed By: #### RICHIE BROWNHGB, CDP #### [facility] [address] [place] [address] Ortho Tech: Vincent Sy MDSodium [Moles/Vol]134 mmol/CHgc572-819YkjoqUc HealthComment on above:Performed By: #### PT, GLYHGB, CDP #### [facility] [address] [place] [address] Ortho Tech: Vincent Sy MDUrea nitrogen [Mass/Vol]24 mg/dLHigh6-20Uc HealthComment on above:Performed By: #### PT, GLYHGB, CDP #### [facility] [address] [place] [address] Ortho Tech: MELLY Pereyraastrid 39-44-2723Bjrbcydkpwu distribution width (RBC) [Ratio]13.2 %Hhfdtp80.8-14.4Uc HealthComment on above:Performed By: #### PT, GLYHGB, CDP #### [facility] [address] [place] [address] Ortho Tech: Vincent Sy MDHematocrit (Bld) [Volume fraction]36.6 %Low 40.7-50.3Mfirelands regional medical center south campusy St. Joseph'S HospitalComment on above:Performed By: #### PT, GLYHGB, CDP #### [facility] [employer] [address] [place] [address] Ortho Tech: Vincent Sy MDHemoglobin (Bld) [Mass/Vol]11.9 g/dLLow13.0-17.0 Uc HealthComment on above:Performed By: #### PT, GLYHGB, CDP #### [facility] [address] [place] [address] Ortho Tech: JODEE PereyraCH (RBC) [Entitic mass]29.8 yjVutbab01.2-33.5 Uc HealthComment on above:Performed By: #### PT, GLYHGB, CDP #### [facility] [address] [place] [address] Ortho Tech: JODEE PereyraCHC (RBC) [Mass/Vol]32.5 g/iRXnupyv78.4-34.8 Uc HealthComment on above:Performed By: #### PT, GLYHGB, CDP #### [facility] [address] [place] [address] Ortho Tech: TOOTIE Pereyra (RBC) [Entitic vol]91.7 jNYdiray02.6-102.9 Uc HealthComment on above:Performed By: #### PT, GLYHGB, CDP #### [facility] [address] [place] [address] Ortho Tech: BRAYDON Pereyra Automated0.0 per 100 WBCNormal0.0Uc HealthComment on above:Performed By: #### PT, GLYHGB, CDP #### [facility] [address] [place] [address] Ortho Tech: Jeffrey Pereyra mean volume (Bld) [Entitic vol]10.4 fL Normal8.1-13.5Uc HealthComment on above:Performed By: #### PT, GLYHGB, CDP #### [facility] [address] [place] [address] Ortho Tech: Sol Pereyrateerasmo (Bld) [#/Vol]196 10*3/cZKxwxbg982-621 Uc HealthComment on above:Performed By: #### PT, GLYHGB, CDP #### [facility] [address] [place] [address] Ortho Tech: MARSHA PereyraBC (Bld) [#/Vol]3.99 10*6/uLLow4.21-5.77Uc HealthComment on above:Performed By: #### PT, GLYHGB, CDP #### [facility] [address] [place] [address] Ortho Tech: Vincent Madoff, MDWBC (Bld) [#/Vol]15.0 10*3/uLHigh3.5-11.3Mer[facility] St. Joseph'S HospitalComment on above:Performed By: #### PT, GLYHGB, CDP #### RUN [address] [place] [address] Ortho Tech: Vincent Sy MDHematocrit (Bld) [Volume fraction]36.6 %Low40.7 - 50.3 %[facility] HEALTH CENTERHemoglobin (Bld) [Mass/Vol]11.9 g/dLLow13.0 - 17.0 g/dLBON [facility] L[facility]AIN HOSPITALInterpretation and review of laboratory results AbnormalBON DOCTORS HOSPITALH (RBC) [Entitic mass]29.8 pg25.2 - 33.5 pgBON DOCTORS HOSPITALHC (RBC) [Mass/Vol]32.5 g/dL28.4 - 34.8 g/dLBON DOCTORS HOSPITALV (RBC) [Entitic vol]91.7 fL82.6 - 102.9 fLRIVERSIDE BEHAVIORAL HEALTH CENTERNRBC Automated0.00.0 per 100 WBCBON [facility] LORAIN HOSPITALPlatelet distribution width (Bld) [Ratio]13.2 %11.8 - 14.4 %[facility] Platelet mean volume (Bld) [Entitic vol]10.4 fL8.1 - 13.5 fLINOVA LOUDOUN HOSPITAL HEALTHPlatelets (Bld) [#/Vol]196 10*3/uLBON [facility] LORAIN HOSPITALRBC (Bld) [#/Vol]3.99 10*6/uLLow4.21 - 5.77 m/uLBON [facility] LORAIN HOSPITALWBC (Bld) [#/Vol] 15.0 10*3/uLHighBON LEAD-DEADWOOD REGIONAL HOSPITALCalcium, Ionicon 06-52-2181Icvirqc [Moles/Vol]1.24 mmol/LNormal1.13-1.33MerNaval Hospital LemooreComment on above:Performed By: #### BMP, MG, CBC, PT, PTT #### RUN [address] [place], [place] [phone] Ortho Tech: MELLY Pereyraalcium [Moles/Vol]1.28 mmol/LNormal1.13-1.33 Uc HealthComment on above:Performed By: #### BRITTANEY BROWN, CDP #### [facility] [place], [place] [phone] Ortho Tech: MELLY Pereyraalcium, Ionizedon 35-36-9919Ewyiczi.ionized (Bld) [Moles/Vol]1.24 mmol/L1.13 - 1.33 mmol/LBON LEAD-DEADWOOD REGIONAL HOSPITALCalcium.ionized (Bld) [Moles/Vol]1.28 mmol/L1.13 - 1.33 mmol/LBON LEAD-DEADWOOD REGIONAL HOSPITALMagnesiumon 06-04-2022 Magnesium [Mass/Vol]2.2 mg/dLNormal1.6-2.6MScripps Mercy Hospital Comment on above:Performed By: #### BRITTANEY BROWN, CDP #### [facility] [address] [place] [address] Ortho Tech: Vincent Sy MDMagnesium [Mass/Vol]2.2 mg/dL1.6 - 2.6 mg/dLBON [facility] L[facility]AIN HOSPITALNo Panel Informationon 20-47-1951EEK [facility] L[facility] HOSPITALPO Glucose Fingerstickon 97-50-7068Gpjujzr [Mass/Vol]182 mg/aWZduc54 - 110 mg/dL [facility] CENTERInterpretation and review of laboratory resultsAbnormal B[facility] HOSPITALGlucose [Mass/Vol]208 mg/dLHigh 75 - 110 mg/dLBON [facility] L[facility]AIN HOSPITALInterpretation and review of laboratory resultsAbnormalJOHN RANDOLPH MEDICAL CENTERGlucose [Mass/Vol]191 mg/qTMacg96 - 110 mg/dLBON [facility] L[facility]AIN HOSPITALInterpretation and review of laboratory resultsAbnormalBON SECOURS MERCY HEALTHBON SEC[facility] MERCY HEALTHGlucose [Mass/Vol]156 mg/wQKdad62 - 110 mg/dLBON [facility] Interpretation and review of laboratory resultsAbnormSouthampton Memorial HospitalPTon 54-65-2289HEA Coag (PPP) [Relative time]1.2 {INR} [facility] SystemComment on above:Result Comment: Therapeutic Range: Moderate Anticoagulant Intensity: INR = 2.0-3.0 High Anticoagulant Intensity: INR = 2.5-3.5Performed By: #### PT, GLYHGB, CDP #### RUN [address] [place] [id number] Ortho Tech: LALO Pereyra Coag (PPP) [Time]15.3 sHigh11.7-14.9Uc HealthComment on above:Performed By: #### PT, GLYHGB, CDP #### RUN [address] [place] [address] [phone] Ortho Tech: Deng Pereyraime-INRon 47-28-1593BED Coag (PPP) [Relative time]1.2 {INR}[facility] CENTERInterpretation and review of laboratory resultsAbCarilion Stonewall Jackson HospitalPT Coag (PPP) [Time]15.3 sHighBON LEAD-DEADWOOD REGIONAL HOSPITALVancomycin Level, Randomon 06-04-2022 Vancomycin Rm17.1 ug/mLJOHN RANDOLPH MEDICAL CENTER Vancomycin,Randomon 22-22-6614Xaeaxdhsux92.1 ug/mLNormalUc HealthComment on above:Result Comment: Higher trough serum vancomycin concentrations of 15-20 ug/mL are recommended for complicated infections such as bacteremia, endocarditis, osteomyelitis, meningitis, and hospital acquired pneumonia.Performed By: #### BMP, MG, CBC, PT, PTT #### RUN [address] [place] [address] [phone] Ortho Tech: SUSIE Pereyra CHEST PORTABLEon 83-81-4970AS CHEST PORTABLE EXAMINATION: ONE XRAY VIEW OF [...] Signed by: Eliana Crisostomo MD 06/04/22 Final resultNormalFlower HospitalPN RIS CONSOLIDATEDPN RIS [facility] Work Phone: bR[facility]IDE [facility] Work Phone: radiology Study observation (narrative)[facility] Work Phone: arterial Blood Gas, POCon 45-71-6539Tltyy TestNOT APPLICABLERIVERSIDE BEHAVIORAL HEALTH CENTERFIO240.0R[facility]ERSIDE BEHAVIORAL HEALTH CENTERHCO3 (Bld) [Moles/Vol]22.9 mmol/L21.0 - 28.0 mmol/LBON [facility] HEALTHInterpretation and review of laboratory resultsAbnormalRIVERSIDE BEHAVIORAL HEALTH CENTERNegative Base Excess, Jch6Ifad8.0 - 2.0R[facility]IDE BEHAVIORAL HEALTH CENTERO2 Device/Flow/%Adult VentilatorRIVERSIDE BEHAVIORAL HEALTH CENTEROxygen saturation in Blood97 %94.0 - 98.0 %[facility] tCN184.2HighWINCHESTER MEDICAL [facility]ENTER pH7.579Wxe8.350 - 7.450[facility] VB2382.6BON [facility] Medical Centermple Site Arterial LineJOHN RANDOLPH MEDICAL CENTERAllen TestNOT APPLICABLEBON [facility] LORAIN HOSPITALFIO240.0R[facility]HAVIOR[facility] HEALTH CENTERHCO3 (Bld) [Moles/Vol]21.8 mmol/L21.0 - 28.0 mmol/LBON SECOURS MERCY HEALTHNegative Base Excess, Hwz9Bfkx2.0 - 2.0BON [facility] LORAIN HOSPITALOxygen saturation in Blood98 % 94.0 - 98.0 %BON [facility] eUM231.1BON [facility]ICAL CENTERC pH 7.794Zlo6.350 - 7.450BON [facility] EU9399.5HighBON MER[facility]ALTH LORAIN HOSPITALPt Temp36.8BON [facility] LORAIN HOSPITALSample SiteArterial LineBON MER[facility] LORAIN HOSPITALBasic Metab w/rfx MGon 91-56-7804Kezbo gap [Moles/Vol]6 mmol/LLow 9-17Uc HealthComment on above:Performed By: #### BMP, MG, CBC, PT, PTT #### [facility] CampusiTaggit [address] [place] [address] Ortho Tech: MELLY Pereyraalcium [Mass/Vol]8.8 mg/dLNormal8.6-10.4Uc HealthComment on above:Performed By: #### BMP, MG, CBC, PT, PTT #### [facility] CampusiTaggit [address] [place] [address] Ortho Tech: MELLY Pereyrahloride [Moles/Vol]102 mmol/DRwmxla72-103TmsclUc HealthComment on above:Performed By: #### BMP, MG, CBC, PT, PTT #### [facility] CampusiTaggit [address] [place] [address] Ortho Tech: Vincent Sy MDCO2 [Moles/Vol]22 mmol/FIfhbtp09-34OzsejUc HealthComment on above:Performed By: #### BMP, MG, CBC, PT, PTT #### [facility] [address] [place] [address] Ortho Tech: Vincent Sy MDCreatinine [Mass/Vol]2.68 mg/dLHigh0.70-1.20 Uc HealthComment on above:Performed By: #### BMP, MG, CBC, PT, PTT #### [facility] CampusiTaggit [address] [place] [address] Ortho Tech: Vincent Sy MDGFR/1.73 sq M.predicted among non-blacks MDRD (S/P/Bld) [Vol rate/Area]30 mL/min/{1.73_m2}Low>60Uc HealthComment on above:Result Comment: These results are not [...] #### BMP, MG, CBC, PT, PTT #### RUN [address] [place] [address] Ortho Tech: Vincent Sy MDGlucose [Mass/Vol]133 mg/cENawh45-20TtkrvScripps Mercy HospitalComment on above:Performed By: #### BMP, MG, CBC, PT, PTT #### [facility] CampusiTag[facility] [address] [place] [address] Ortho Tech: Vincent Sy MDPotassium [Moles/Vol]5.1 mmol/LNormal3.7-5.3 Uc HealthComment on above:Performed By: #### BMP, MG, CBC, PT, PTT #### RUN [address] [place] [address] Ortho Tech: Vincent Sy MDSodium [Moles/Vol]130 mmol/OPzz892-667BsdkrUc HealthComment on above:Performed By: #### BMP, MG, CBC, PT, PTT #### [facility] CampusiTaggit [address] [place] [address] Ortho Tech: Vincnet Sy MDUrea nitrogen [Mass/Vol]26 mg/dLHigh6-20Mercy St. Joseph'S HospitalComment on above:Performed By: #### BMP, MG, CBC, PT, PTT #### [facility] [address] [place] [address] Ortho Tech: Vincent Sy MDBackus Hospital Metabolic Panelon 50-28-9307Zhnpj gap [Moles/Vol]8 mmol/LLow9 - 17 mmol/LBON SECOURS [...] HEALTHBac Metabolic Panel w/ Reflex to MGon 07-42-6926Qsovk gap [Moles/Vol]6 mmol/LLow9 - 17 mmol/LBON [facility]RS [facility]CY HEALTHCalcium [Mass/Vol]8.8 mg/dL8.6 - 10.4 mg/dLBON SECOURS MERCY HEALTHChloride [Moles/Vol]102 mmol/L98 - 107 mmol/LBON [facility]RS MERCY HEALTHCO2 [Moles/Vol]22 mmol/L20 - 31 mmol/LBON [facility]CY HEALTHCreatinine [Mass/Vol]2.68 mg/dLHigh0.70 - 1.20 mg/dLBON [facility] LORAIN HOSPITALGFR/1.73 sq M.predicted MDRD (S/P/Bld) [Vol rate/Area]30 mL/min/{1.73_m2}Low- PINFBON MERCY HEALTH LORAIN HOSPITALGlucose [Mass/Vol]133 mg/dLHigh 70 - 99 mg/dLBON [facility] LORAIN HOSPITALInterpretation and review of laboratory resultsAbnormalBON MER[facility] L[facility]AIN HOSPITALPotassium [Moles/Vol]5.1 mmol/L3.7 - 5.3 mmol/LBON MER[facility] HEALTH LORAIN HOSPITALSodium [Moles/Vol]130 mmol/NMoo104 - 144 mmol/LBON [facility] LORAIN HOSPITALUrea nitrogen [Mass/Vol]26 mg/dLHigh6 - 20 mg/dLBON [facility] LORAIN HOSPITALBasic Metabolic Profon 61-10-3050Ftpjo gap [Moles/Vol]8 mmol/LLow 9-17Uc HealthComment on above:Performed By: #### PT GLYHGB, CDP #### RUN [address] [place] [address] Ortho Tech: MELLY Pereyraalcium [Mass/Vol]8.8 mg/dLNormal8.6-10.4Uc HealthComment on above:Performed By: #### PT GLYHGB, CDP #### RUN [address] [place] [address] Ortho Tech: MELLY Pereyrahloride [Moles/Vol]111 mmol/ZTqhe06-391VjnkxUc HealthComment on above:Performed By: #### PT, GLYHGB, CDP #### RUN [address] [place] [address] Ortho Tech: Vincent Sy MDCO2 [Moles/Vol]20 mmol/VWrfljw55-06LtphcUc HealthComment on above:Performed By: #### PT GLYHGB, CDP #### RUN [address] [place] [address] Ortho Tech: MELLY Pereyrareatinine [Mass/Vol]2.15 mg/dLHigh0.70-1.20 Uc HealthComment on above:Performed By: #### BRITTANEY BROWN, CDP #### [address] [address] Ortho Tech: Vincent Sy MDGFR/1.73 sq M.predicted among non-blacks MDRD (S/P/Bld) [Vol rate/Area]40 mL/min/{1.73_m2}Low>60Uc HealthComment on above:Result Comment: These results are not [...] secretion.Performed By: #### BRITTANEY BROWN, CDP #### [facility] [address] [place] [address] Ortho Tech: Vincent Sy MDGlucose [Mass/Vol]113 mg/kVWibw51-70Chpkr St. Joseph'S HospitalComment on above:Performed By: #### BRITTANEY BROWN, CDP #### [facility] [address] [place] [address] Ortho Tech: Vincent Sy MDPotassium [Moles/Vol]5.3 mmol/LNormal3.7-5.3 Uc HealthComment on above:Performed By: #### BRITTANEY BROWN, CDP #### [facility] [address] [place] [address] Ortho Tech: Vincent Sy MDSodium [Moles/Vol]139 mmol/KSygvkg718-127BikqkUc HealthComment on above:Performed By: #### PT, GLYHGB, CDP #### [facility] [address] [place] [address] Ortho Tech: Vincent Sy MDUrea nitrogen [Mass/Vol]23 mg/dLHigh6-20Uc HealthComment on above:Performed By: #### PT, GLYHGB, CDP #### [facility] [address] [place] [address] Ortho Tech: MELLY Pereyraon 43-05-4085Tqhanlbricw distribution width (RBC) [Ratio]13.4 %Aqukap53.8-14.4Uc HealthComment on above:Performed By: #### PT, GLYHGB, CDP #### [facility] [address] [place] [address] Ortho Tech: Vincent Sy MDHematocrit (Bld) [Volume fraction]36.3 %Low 40.7-50.3Mfirelands regional medical center south campusy St. Joseph'S HospitalComment on above:Performed By: #### PT, GLYHGB, CDP #### [facility] [address] [place] [address] Ortho Tech: Vincent Sy MDHemoglobin (Bld) [Mass/Vol]11.8 g/dLLow13.0-17.0 Uc HealthComment on above:Performed By: #### PT, GLYHGB, CDP #### [facility] [address] [place] [address] Ortho Tech: JODEE PereyraCH (RBC) [Entitic mass]29.4 ecZxwdwv40.2-33.5 Uc HealthComment on above:Performed By: #### PT, GLYHGB, CDP #### [facility] [address] [place] [address] Ortho Tech: JODEE PereyraCHC (RBC) [Mass/Vol]32.5 g/pNHxvknb02.4-34.8 Uc HealthComment on above:Performed By: #### PT, GLYHGB, CDP #### [facility] [address] [place] [address] Ortho Tech: JODEE PereyraCV (RBC) [Entitic vol]90.5 jPSyljvl04.6-102.9 Uc HealthComment on above:Performed By: #### PT, GLYHGB, CDP #### [facility] [employer] [address] [place] [id number] Ortho Tech: BRAYDON Pereyra Automated0.0 per 100 WBCNormal0.0Uc HealthComment on above:Performed By: #### PT, GLYHGB, CDP #### [facility] [employer] [address] [place] [address] Ortho Tech: Sol Pereyratecarlton mean volume (Bld) [Entitic vol]10.8 fL Normal8.1-13.5[facility]c HealthComment on above:Performed By: #### PT, GLYHGB, CDP #### [facility] [address] [place] [address] Ortho Tech: Sol Pereyrateerasmo (Bld) [#/Vol]190 10*3/tQSkxamb117-235 [facility] HealthComment on above:Performed By: #### PT, GLYHGB, CDP #### [facility] [employer] [address] [place] [id number] Ortho Tech: MARSHA PereyraBC (Bld) [#/Vol]4.01 10*6/uLLow4.21-5.77[facility] HealthComment on above:Performed By: #### PT, GLYHGB, CDP #### [facility] [employer] [address] [place] [address] Ortho Tech: Vincent Sy MDWBC (Bld) [#/Vol]17.1 10*3/uLHigh3.5-11.3[facility]'S HospitalComment on above:Performed By: #### BRITTANEY BROWN CDP #### [address] [place] [address] Ortho Tech: Vincent Sy MDHematocrit (Bld) [Volume fraction]36.3 %Low40.7 - 50.3 %[facility] CENTERHemoglobin (Bld) [Mass/Vol]11.8 g/dLLow13.0 - 17.0 g/dLBON MERCY HEALTH LORAIN HOSPITALInterpretation and review of laboratory results AbnormalBON DOCTORS HOSPITALH (RBC) [Entitic mass]29.4 pg25.2 - 33.5 pgBON DOCTORS HOSPITALHC (RBC) [Mass/Vol]32.5 g/dL28.4 - 34.8 g/dLBON DOCTORS HOSPITALV (RBC) [Entitic vol]90.5 fL82.6 - 102.9 fLRIVERSIDE BEHAVIORAL HEALTH CENTERNRBC Automated0.00.0 per 100 WBCBON MERCY HEALTH LORAIN HOSPITALPlatelet distribution width (Bld) [Ratio]13.4 %11.8 - 14.4 %[facility] Platelet mean volume (Bld) [Entitic vol]10.8 fL8.1 - 13.5 fLINOVA LOUDOUN HOSPITAL HEALTHPlatelets (Bld) [#/Vol]190 10*3/uLBON MERCY HEALTH LORAIN HOSPITALRBC (Bld) [#/Vol]4.01 10*6/uLLow4.21 - 5.77 m/uLBON [facility] HOSPITALWBC (Bld) [#/Vol] 17.1 10*3/uLHighBON [facility] HOSPITALCalcium, Ionicon 42-15-1421Nayuvxb [Moles/Vol]1.33 mmol/LNormal1.13-1.33Uc HealthComment on above:Performed By: #### BRITTANEY BROWN, [place] #### [facility] [address] [id number] Ortho Tech: Vincent Sy MDCalcium, Ionizedon 04-97-2344Yvukksn.ionized (Bld) [Moles/Vol]1.33 mmol/L1.13 - 1.33 mmol/LBON [facility] HOSPITALLaboratory - Blood bankon 44-54-6672Wxnlf product type Nom (BPU)Leukocyte Reduced Red CellBON MER[facility] HEALTH LORAIN HOSPITALLactic Acid, POCon 30-48-8557GUB Lactic Acid0.75 mmol/L0.56 - 1.39 mmol/LBON [facility] Magnesiumon 42-45-8672Xuufsxbbo [Mass/Vol]2.4 mg/dLNormal1.6-2.6[facility]. Joseph'S HospitalComment on above:Performed By: #### PT, GLYHGB, CDP #### [facility] [address] [place], [place] [phone] Ortho Tech: Vincent Sy MDMagnesium [Mass/Vol]2.4 mg/dL1.6 - 2.6 mg/dLBON [facility] HOSPITALNo Panel Informationon 66-92-0995XAQ [facility] Crossmatch ResultCOMPATIBLERIVERSIDE BEHAVIORAL HEALTH CENTERDispense StatusREL FROM ALLOC [facility]ALTH CENTERTransfusion StatusOK TO TRANSFUSEBON [facility] HOSPITALUnit Clkinpx8YFN [facility] Interpretation and review of laboratory resultsAbnormalRIVERSIDE BEHAVIORAL HEALTH CENTER BON [facility] HOSPITALPOC Glucose Fingerstickon 59-63-4633Bztlvvf [Mass/Vol] 162 mg/wUCoaa01 - 110 mg/dLBON [facility] HOSPITALInterpretation and review of laboratory resultsAbnormalJOHN [facility]ANDOL[facility] Glucose [Mass/Vol]153 mg/tAIkxf45 - 110 mg/dLBON [facility] Interpretation and review of laboratory resultsAbnormSouthampton Memorial HospitalGlucose [Mass/Vol]207 mg/pKMcai71 - 110 mg/dLBON [facility] HOSPITALInterpretation and review of laboratory resultsAbnormalJOHN RANDOLPH MEDICAL CENTERGlucose [Mass/Vol]197 mg/kDPkov78 - 110 mg/dLBON [facility] HOSPITALInterpretation and review of laboratory results AbnormalBON [facility] HEALTHGlucose [Mass/Vol]92 mg/dL75 - 110 mg/dLBON [facility] HEALTHGlucose [Mass/Vol]104 mg/dL75 - 110 mg/dLBON [facility]CC[facility] HEALTHGlucose [Mass/Vol]103 mg/dL75 - 110 mg/dLBON [facility] HEALTHGlucose [Mass/Vol]116 mg/uDXolc44 - 110 mg/dLBON [facility] HEALTHInterpretation and review of laboratory resultsAbnormalJOHN RANDOLPH MEDICAL CENTERGlucose [Mass/Vol]126 mg/gXVyza29 - 110 mg/dLBON [facility] HEALTHInterpretation and review of laboratory results AbnormalBON [facility]ADWOOD [facility]IONAL HOSPITALPOCT Glucoseon 90-61-2590Ahrcvoz [Mass/Vol]135 mg/fNCwfh76 - 100 mg/dLBON [facility] PTon 22-44-9703NPQ Coag (PPP) [Relative time]1.1 {INR}NormalUc HealthComment on above:Result Comment: Therapeutic Range: Moderate Anticoagulant Intensity: INR = 2.0-3.0 High Anticoagulant Intensity: INR = 2.5-3.5Performed By: #### PT, GLYHGB, CDP #### [facility] [address] [place] [address] Ortho Tech: LALO Pereyra Coag (PPP) [Time]14.6 oSgczst82.7-14.9Uc HealthComment on above:Performed By: #### PT, GLYHGB, CDP #### [employer] [address] [place], [place] [phone] Ortho Tech: Kevin Pereyra-INRon 69-33-5425LXU Coag (PPP) [Relative time]1.1 {INR}DAVION REAGAN HEALTHPT Coag (PPP) [Time]14.6 sBON SECMARIA ELENA REAGAN HEALTHTYPE AND SCREENon 08-82-9439BMG/RhPositive BON ALCIRA REAGAN HEALTHArm Band NumberBE [id number] SECMARIA ELENA WAYNEY HEALTHBlood product unit ID (Dose) [#][id number] SECMARIA ELENA MERCJed HEALTHBlood product unit ID (Dose) [#][id number] SECMARIA ELENA MERCY HEALTHBlood product unit ID (Dose) [#][id number] SECMARIA ELENA MERCY HEALTHBlood product unit ID (Dose) [#] [id number] ALCIRA REAGAN HEALTHExpiration Date06/02/2022,2359BON SECMARIA ELENA REAGAN HEALTHVancomycin Level, Randomon 06-03-2022 Vancomycin Rm31.9 ug/mLBON SECMARIA ELENA REAGAN HEALTHVancomycin,Randomon 06-03-2022 Ocawlxiesm71.9 ug/mLNCleveland Clinic Medina HospitalComment on above: Result Comment: Higher trough serum vancomycin concentrations of 15-20 ug/mL are recommended for complicated infections such as bacteremia, endocarditis, osteomyelitis, meningitis, and hospital acquired pneumonia.Performed By: #### BMP, MG, CBC, PT, PTT #### [address] [place] [address] Ortho Tech: SUSIE Pereyra CHEST PORTABLEon 37-58-7865OO CHEST PORTABLE EXAMINATION: ONE XRAY VIEW OF [...] Crisostomo MD Signed by: Eliana Crisostomo MD 06/03/22 Final resultNormalUc HealthMHPN RIS CONSOLIDATEDMHPN RIS CONSOLIDATEDBON [employer] Work Phone: radiology Study observation (narrative)[employer] Work Phone: XR CHEST PORTABLEOrdered By: Eliana Crisostomo on 06-03-2022 [facility] D [employer] K inter[employer] Work Phone: APTTon 27-80-8754gDFR Coag (Bld) [Time]28.1 sNormal 23.0-36.5Uc HealthComment on above:Performed By: #### BMP, MG, CBC, PT, PTT #### [facility] [address] [place] [phone] Ortho Tech: Vincent Sy MDaPTT Coag (Bld) [Time]28.1 sB D and K interprisesaPTT Coag (Bld) [Time]66.0 sHigh23.0-36.[address] [place] [address] Comment on above:Result Comment: NOTE: NEW REFERENCE RANGEPerformed By: #### BMP, MG, CBC, PT, PTT #### [facility] [address] [place] [phone] Ortho Tech: Vincent Sy MDAniastrid Gap (Calc) POCon 65-72-5474Krsxn gap [Moles/Vol]11 mmol/L7 - 16 mmol/LBON D and K interprisesArterial Blood Gas, POC on 38-78-7847Mrlcz TestNOT APPLICABLEBON SECEvino UAWWJBKYL548.0BON D and K interprisesHCO3 (Bld) [Moles/Vol]19.0 mmol/LLow21.0 - 28.0 mmol/LBON SECEvino HEALTHNegative Base Excess, Tcn0Scgc9.0 - 2.0BON D and K interprisesO2 Device/Flow/%Adult VentilatorBON SECFrensenius Vascular CareOxygen saturation in Blood 97 %94.0 - 98.0 %[facility] yVO008.1[facility] pH7.573Mhe9.350 - 7.450[facility] ZE9151.6HighBON [facility] HEALTHSample SiteArterial LineBON [facility] HEALTHAllen TestNOT APPLICABLEBON SECOURS MERCY MLZUHDUSZ3425.0BON [facility] HEALTHHCO3 (Bld) [Moles/Vol]20.5 mmol/LLow21.0 - 28.0 mmol/LBON [facility] HEALTHMode SIMV(PRVC)+ PSBON [facility]CY HEALTHNegative Base Excess, Faw6Kfrj8.0 - 2.0[facility] HEALTHO2 Device/Flow/%Adult VentilatorBON [facility] Oxygen saturation in Blood99 %High94.0 - 98.0 %[facility] pCO2 44.6[facility] pH7.197Ymd7.350 - 7.450[facility] POC VO0560.5HighBON [facility] HEALTHSample SiteArterial LineBON [facility]RS MERCY HEALTHHCO3 (Bld) [Moles/Vol]20.9 mmol/LLow21.0 - 28.0 mmol/LBON [facility] HEALTHNegative Base Excess, Uwe8Swaw6.0 - 2.0[facility]ALTH Oxygen saturation in Htliy095 %High94.0 - 98.0 %[facility] pCO2 45.9[facility] pH7.653Owk6.350 - 7.450BON [facility] POC NW6889.0HighBON SEC[facility]RS MERCY HEALTHHCO3 (Bld) [Moles/Vol]20.9 mmol/LLow21.0 - 28.0 mmol/LBON [facility] HEALTHNegative Base Excess, Wrl5Dllh8.0 - 2.0[facility] HEALTHOxygen saturation in Cyikq854 %High94.0 - 98.0 %[facility] cXT108.8[facility] pH7.786Iir6.350 - 7.450[facility] DH9435.8HighBON [facility]RS [facility]CY HEALTHHCO3 (Bld) [Moles/Vol]21.4 mmol/L21.0 - 28.0 mmol/LBON [facility] HEALTHNegative Base Excess, Nry9Ioof5.0 - 2.0[facility] HEALTHOxygen saturation in Oammm516 % High94.0 - 98.0 %[facility] zNN119.9LowBON [facility] POC pH7.3967.350 - 7.450BON [facility] DE2824.3HighBON [facility] HEALTHHCO3 (Bld) [Moles/Vol]20.9 mmol/LLow21.0 - 28.0 mmol/LBON [facility] HEALTHNegative Base Excess, Yau4Bgpq6.0 - 2.0[facility] Oxygen saturation in Ibndq235 %High94.0 - 98.0 %[facility] pCO2 35.5B[facility] pH7.3787.350 - 7.450BON [facility]ALEOU[facility]OSPITALC JH9268.8HAscension [facility] SECOU[facility]ERY HEALTHHCO3 (Bld) [Moles/Vol]22.3 mmol/L21.0 - 28.0 mmol/LBON [facility] HEALTHNegative Base Excess, Pow5Ekkq3.0 - 2.0[facility] SEC[facility] HEALTHOxygen saturation in Dcchi026 %High94.0 - 98.0 %[facility] fOZ430.6[facility] pH7.701Oyp2.350 - 7.450B[facility]OSPITALC ZD2281.8HAscension [facility]ERY HEALTHHCO3 (Bld) [Moles/Vol]20.4 mmol/LLow21.0 - 28.0 mmol/LBON [facility] HEALTHNegative Base Excess, Zkz0Ezoh2.0 - 2.0BON [facility] HEALTHOxygen saturation in Ngklf682 %High94.0 - 98.0 %[facility]ITALP[facility] mVF634.6[facility] P[facility] pH7.878Hpi7.350 - 7.450B[facility] TY8563.9HAsc[facility] HEALTHHCO3 (Bld) [Moles/Vol]22.8 mmol/L21.0 - 28.0 mmol/LBON SECLIFEPOINT HEALTHY HEALTHNegative Base Excess, Yrm6Frua3.0 - 2.0BON SECLIFEPOINT HEALTHY HEALTHOxygen saturation in Devbj405 %High94.0 - 98.0 %BON [facility] bRD990.4BON [facility] pH7.436Bsl6.350 - 7.450BON [facility] PO2 187.4HighBON [facility] HOSPITALBasic Metabolic Panelon 65-37-9386Fdbjr gap [Moles/Vol]8 mmol/LLow9 - 17 mmol/LBON [facility] HEALTHCalcium [Mass/Vol]9.1 mg/dL8.6 - 10.4 mg/dLBON [facility] HEALTHChloride [Moles/Vol]111 mmol/LHigh 98 - 107 mmol/LBON [facility] HEALTHCO2 [Moles/Vol]19 mmol/LLow20 - 31 mmol/L BON [facility] HEALTHCreatinine [Mass/Vol]1.94 mg/dLHigh0.70 - 1.20 mg/dLBON [facility] HEALTHGFR/1.73 sq M.predicted MDRD (S/P/Bld) [Vol rate/Area]45 mL/min/{1.73_m2}Low- PINFBON [facility] HEALTHGlucose [Mass/Vol]93 mg/dL70 - 99 mg/dLBON [facility] HEALTHPotassium [Moles/Vol]5.0 mmol/L3.7 - 5.3 mmol/L [facility] HEALTHSodium [Moles/Vol]138 mmol/L135 - 144 mmol/LBON [facility] HEALTHUrea nitrogen [Mass/Vol]20 mg/dL6 - 20 mg/dLBON [facility]ALTH Anion gap [Moles/Vol]13 mmol/L9 - 17 mmol/LBON [facility] HEALTHCalcium [Mass/Vol]10.6 mg/dLHigh8.6 - 10.4 mg/dLBON [facility] HEALTHChloride [Moles/Vol]110 mmol/LHigh98 - 107 mmol/LBON [facility] HEALTHCO2 [Moles/Vol] 17 mmol/LLow20 - 31 mmol/LBON [facility] HEALTHCreatinine [Mass/Vol]1.79 mg/dLHigh0.70 - 1.20 mg/dLBON [facility] HOSPITALGFR/1.73 sq M.predicted MDRD (S/P/Bld) [Vol rate/Area]49 mL/min/{1.73_m2}Low- PINFBON [facility] Glucose [Mass/Vol]103 mg/jBDsjs00 - 99 mg/dLBON [facility] Interpretation and review of laboratory resultsAbnormalRIVERSIDE BEHAVIORAL HEALTH CENTER Potassium [Moles/Vol]4.6 mmol/L3.7 - 5.3 mmol/LBON [facility]ALTH L[facility] HOSPITALSodium [Moles/Vol]140 mmol/L135 - 144 mmol/LBON [facility] HOSPITALUrea nitrogen [Mass/Vol]22 mg/dLHigh6 - 20 mg/dLBON [facility] HOSPITALBasic Metabolic Profon 63-52-2257Bsxlj gap [Moles/Vol]8 mmol/LLow9-17Uc HealthComment on above:Performed By: #### BMP, MG, CBC, PT, PTT #### [facility] [address] [place] [address] Ortho Tech: MELLY Pereyraalcium [Mass/Vol]9.1 mg/dLNormal8.6-10.4Uc HealthComment on above:Performed By: #### BMP, MG, CBC, PT, PTT #### [facility] [address] [place] [address] Ortho Tech: MELLY Pereyrahloride [Moles/Vol]111 mmol/NIyni32-893EjcikUc HealthComment on above:Performed By: #### BMP, MG, CBC, PT, PTT #### [facility] [address] [place] [address] Ortho Tech: Vincent Sy MDCO2 [Moles/Vol]19 mmol/RWlp01-28RypbdUc HealthComment on above:Performed By: #### BMP, MG, CBC, PT, PTT #### [facility] [employer] [address] [place] [address] Ortho Tech: MELLY Pereyrareatinine [Mass/Vol]1.94 mg/dLHigh0.70-1.20 Uc HealthComment on above:Performed By: #### BMP, MG, CBC, PT, PTT #### [address] [address] Ortho Tech: Vincent Sy MDGFR/1.73 sq M.predicted among non-blacks MDRD (S/P/Bld) [Vol rate/Area]45 mL/min/{1.73_m2}Low>60Uc HealthComment on above:Result Comment: These results are not [...] #### BMP, MG, CBC, PT, PTT #### [facility] [employer] [address] [place] [address] Ortho Tech: Vincent Sy MDGlucose [Mass/Vol]93 mg/jAPkwuvs51-26RozzhScripps Mercy HospitalComment on above:Performed By: #### BMP, MG, CBC, PT, PTT #### [facility] [employer] [address] [place] [address] Ortho Tech: DOLLY Pereyraotassium [Moles/Vol]5.0 mmol/LNormal3.7-5.3 Uc HealthComment on above:Performed By: #### BMP, MG, CBC, PT, PTT #### [facility] [employer] [address] [place] [address] Ortho Tech: LISA Pereyraodium [Moles/Vol]138 mmol/CQjfsca916-404NimlvUc HealthComment on above:Performed By: #### BMP, MG, CBC, PT, PTT #### [facility] [address] [place] [address] Ortho Tech: Vincent Sy MDUrea nitrogen [Mass/Vol]20 mg/dLNormal6-20Uc HealthComment on above:Performed By: #### BMP, MG, CBC, PT, PTT #### [facility] [address] [place] [address] Ortho Tech: Vincent Sy MDAnion gap [Moles/Vol]13 mmol/LNormal9-17Uc HealthComment on above:Performed By: #### BMP, MG, CBC, PT, PTT #### [facility] [employer] [address] [place] [address] Ortho Tech: MELLY Pereyraalcium [Mass/Vol]10.6 mg/dLHigh8.6-10.4Uc HealthComment on above:Performed By: #### BMP, MG, CBC, PT, PTT #### [facility] [employer] [address] [place] [address] Ortho Tech: Vincent Sy MDChloride [Moles/Vol]110 mmol/ZSkzj87-325BnwogUc HealthComment on above:Performed By: #### BMP, MG, CBC, PT, PTT #### [facility] [address] [place] [address] Ortho Tech: Vincent Sy MDCO2 [Moles/Vol]17 mmol/VUao64-70DnlysUc HealthComment on above:Performed By: #### BMP, MG, CBC, PT, PTT #### [facility] [address] [place] [address] Ortho Tech: MELLY Pereyrareatinine [Mass/Vol]1.79 mg/dLHigh0.70-1.20 Uc HealthComment on above:Performed By: #### BMP, MG, CBC, PT, PTT #### [place] [address] Ortho Tech: Vincent Sy MDGFR/1.73 sq M.predicted among non-blacks MDRD (S/P/Bld) [Vol rate/Area]49 mL/min/{1.73_m2}Low>60Uc HealthComment on above:Result Comment: These results are not [...] #### BMP, MG, CBC, PT, PTT #### [facility] [employer] [address] [place] [address] Ortho Tech: Vincent Sy MDGlucose [Mass/Vol]103 mg/gKSjpf99-35BjtmxScripps Mercy HospitalComment on above:Performed By: #### BMP, MG, CBC, PT, PTT #### [facility] [employer] [address] [place] [address] Ortho Tech: DOLLY Pereyraotassium [Moles/Vol]4.6 mmol/LNormal3.7-5.3 Uc HealthComment on above:Performed By: #### BMP, MG, CBC, PT, PTT #### [facility] [employer] [address] [place] [address] Ortho Tech: LISA Pereyraodium [Moles/Vol]140 mmol/DVkomfp945-044ZswreUc HealthComment on above:Performed By: #### BMP, MG, CBC, PT, PTT #### [place] [address] Ortho Tech: Vincent Sy MDUrea nitrogen [Mass/Vol]22 mg/dLHigh6-20Uc HealthComment on above:Performed By: #### BMP, MG, CBC, PT, PTT #### [facility] [address] [place], [place] [phone] Ortho Tech: MELLY PereyraALCIUM, IONIC (POC)on 77-68-9931HZS Ionized Calcium1.48 mmol/LHigh1.15 - 1.33 mmol/LBON [facility] Ionized Calcium1.44 mmol/LHigh1.15 - 1.33 mmol/LBON [facility] Ionized Calcium1.48 mmol/LHigh1.15 - 1.33 mmol/LBON [facility] Ionized Calcium1.27 mmol/L1.15 - 1.33 mmol/LBON [facility] Ionized Calcium 1.24 mmol/L1.15 - 1.33 mmol/LBON [facility] Ionized Calcium1.31 mmol/L1.15 - 1.33 mmol/LBON [facility] Ionized Calcium1.35 mmol/L High1.15 - 1.33 mmol/LBON [facility] Ionized Calcium1.37 mmol/LHigh 1.15 - 1.33 mmol/LBON [facility] MEDICAL CENTERCon 22-16-3440Xtsulyivfnr distribution width (RBC) [Ratio]13.5 %Akkwrr77.8-14.4Uc HealthComment on above:Performed By: #### BMP, MG, CBC, PT, PTT #### [facility] [address] [place], [place] [phone] Ortho Tech: Vincent Sy MDHematocrit (Bld) [Volume fraction]34.9 %Low 40.7-50.3MScripps Mercy HospitalComment on above:Performed By: #### BMP, MG, CBC, PT, PTT #### [facility] [address] [place], [place] [phone] Ortho Tech: Vincent Sy MDHemoglobin (Bld) [Mass/Vol]11.6 g/dLLow13.0-17.0 Uc HealthComment on above:Performed By: #### BMP, MG, CBC, PT, PTT #### [address] [address] Ortho Tech: JODEE PereyraCH (RBC) [Entitic mass]29.7 ylSbihee26.2-33.5 Uc HealthComment on above:Performed By: #### BMP, MG, CBC, PT, PTT #### [place] [address] Ortho Tech: JENS PereyraC (RBC) [Mass/Vol]33.2 g/xUNucksw53.4-34.8 Uc HealthComment on above:Performed By: #### BMP, MG, CBC, PT, PTT #### [place] [address] Ortho Tech: JODEE PereyraCV (RBC) [Entitic vol]89.3 pFNsnjoy77.6-102.9 Uc HealthComment on above:Performed By: #### BMP, MG, CBC, PT, PTT #### [place] [address] Ortho Tech: Vincent Sy MDNRBC Automated0.0 per 100 WBCNormal0.0Uc HealthComment on above:Performed By: #### BMP, MG, CBC, PT, PTT #### [facility] [employer] [address] [place] [address] Ortho Tech: Sol Pereyratelet mean volume (Bld) [Entitic vol]10.5 fL Normal8.1-13.5Uc HealthComment on above:Performed By: #### BMP, MG, CBC, PT, PTT #### [address] [address] Ortho Tech: DOLLY Pereyralatelets (Bld) [#/Vol]154 10*3/kUPtxaxy741-820 Uc HealthComment on above:Performed By: #### BMP, MG, CBC, PT, PTT #### [facility] [address] [place] [address] Ortho Tech: Vincent Sy MDRBC (Bld) [#/Vol]3.91 10*6/uLLow4.21-5.77Uc HealthComment on above:Performed By: #### BMP, MG, CBC, PT, PTT #### [facility] [employer] [address] [place] [address] Ortho Tech: Vincent Sy MDWBC (Bld) [#/Vol]11.9 10*3/uLHigh3.5-11.3MScripps Mercy HospitalComment on above:Performed By: #### BMP, MG, CBC, PT, PTT #### [facility] [employer] [address] [place] [address] Ortho Tech: Vincent Sy MDHematocrit (Bld) [Volume fraction]34.9 %Low40.7 - 50.3 %[facility]IOR[facility] HEALTH CENTERHemoglobin (Bld) [Mass/Vol]11.6 g/dLLow13.0 - 17.0 g/dLBON [facility]AIN HOSPITALInterpretation and review of laboratory results AbnormalBON DOCTORS HOSPITALH (RBC) [Entitic mass]29.7 pg25.2 - 33.5 pgBON DOCTORS HOSPITALHC (RBC) [Mass/Vol]33.2 g/dL28.4 - 34.8 g/dLBON DOCTORS HOSPITALV (RBC) [Entitic vol]89.3 fL82.6 - 102.9 fLRIVERSIDE BEHAVIORAL HEALTH CENTERNRBC Automated0.00.0 per 100 WBCBON [facility] LORAIN HOSPITALPlatelet distribution width (Bld) [Ratio]13.5 %11.8 - 14.4 %[facility] Platelet mean volume (Bld) [Entitic vol]10.5 fL8.1 - 13.5 fLBON MER[facility] HEALTH LORAIN HOSPITALPlatelets (Bld) [#/Vol]154 10*3/uLBON MERCY HEALTH LORAIN HOSPITALRBC (Bld) [#/Vol]3.91 10*6/uLLow4.21 - 5.77 m/uLBON [facility] HEALTH LORAIN HOSPITALWBC (Bld) [#/Vol] 11.9 10*3/uLHighBON [facility] HEALTHCHLORIDE (POC)on 41-68-6968Xmgtzawx [Moles/Vol]110 mmol/LHigh98 - 107 mmol/LBON [facility] HOSPITALCalcium, Ionicon 60-56-6880Knfjeqd [Moles/Vol]1.35 mmol/LHigh1.13-1.33 Uc HealthComment on above:Performed By: #### BMP, MG, CBC, PT, PTT #### [facility] [address] [id number] Ortho Tech: Vincent Sy, MDCalcium, Ionizedon 78-05-0137Exqinbq.ionized (Bld) [Moles/Vol]1.35 mmol/LHigh1.13 - 1.33 mmol/LBON [facility] Interpretation and review of laboratory resultsAbnormalBON [facility] BON [facility] HOSPITALCreatinine W/GFR Point of Careon 04-93-8377Vumbpyuhid [Mass/Vol]1.87 mg/dLHigh0.51 - 1.19 mg/dLBON MERCY HEALTH LORAIN HOSPITALeGFR, POC47 mL/min/1.40e8JZH [facility] HOSPITALELECTROLYTES PLUSon 05-01-4418Urtud gap [Moles/Vol]13 mmol/L7 - 16 mmol/LBON [facility] HOSPITALChloride [Moles/Vol]111 mmol/LHigh98 - 107 mmol/LBON [facility] HOSPITALCO2 [Moles/Vol]20 mmol/LLow22 - 30 mmol/LBON [facility] HOSPITALPotassium [Moles/Vol]5.0 mmol/LHigh3.5 - 4.5 mmol/LBON [facility] HEALTHSodium [Moles/Vol]143 mmol/L138 - 146 mmol/LBON [facility] HEALTHHemoglobin and hematocrit, bloodon 37-59-2748Seemyjtqse (Bld) [Volume fraction]35 %Low41 - 53 %BON [...] [Mass/Vol]12.8 g/dLLow13.5 - 17.5 g/dLBON MERCY HEALTH LORAIN HOSPITALLactic Acid, POCon 91-94-6544DXO Lactic Acid0.61 mmol/L0.56 - 1.39 mmol/LBON [facility] POC Lactic Acid0.88 mmol/L0.56 - 1.39 mmol/LBON [facility] HEALTHMagnesiumon 75-07-8599Wcpqakcah [Mass/Vol]3.1 mg/dLHigh1.6-2.6[facility] Joseph'S HospitalComment on above:Performed By: #### BMP, MG, CBC, PT, PTT #### [facility] [address] [place] [address] Ortho Tech: Vincent Sy MDMagnesium [Mass/Vol]3.1 mg/dLHigh1.6 - 2.6 mg/dL [facility]ITALNo Panel Informationon [id number] and review of laboratory resultsAbnormalWINCHESTER MEDICAL [facility]ENTER HEALTHInterpretation and review of laboratory results AbnormalBON [facility] HEALTHInterpretation and review of laboratory resultsAbnormalCARILION [facility] HEALTHInterpretation and review of laboratory resultsAbnormalCARILION [facility]IC [facility] HEALTHInterpretation and review of laboratory results AbnormalBON [facility] HEALTHInterpretation and review of laboratory resultsAbnormalCARILION CLINIC ST[facility] HEALTHInterpretation and review of laboratory resultsAbnormalCARILION [facility]IC [facility] HEALTHInterpretation and review of laboratory results AbnormalBON [facility] HEALTHInterpretation and review of laboratory resultsAbnormalCARILION CLINIC ST[facility] HEALTHInterpretation and review of laboratory resultsAbnormalJOHN RANDOLPH MEDICAL CENTERPOC Global Hemostasis (TEG 6S)on [id number] TEG64.0 deg63.0 - 78.0 degBON MERCY HEALTH LORAIN HOSPITALFibrinogen, Functional TEG23.3 mm15.0 - 32.0 mmRIVERSIDE BEHAVIORAL HEALTH CENTERInterpretation and review of laboratory resultsAbnormalRIVERSIDE BEHAVIORAL HEALTH CENTERKinetics TEG2.3 minHigh0.8 - 2.1 minC[facility] (Max Clot) TEG57.2 mm52.0 - 69.0 mmCEN[facility](Max Clot) Rapid TEG61.4 mm52.0 - 70.0 mmRIVERSIDE BEHAVIORAL HEALTH CENTER Performing LocationPerformed at [facility] Perfusion [facility]OSPITALReaction Time TEG8.7 min4.6 - 9.1 minBON [facility]AIN HOSPITALReaction Time TEG w Fvasswg33.7 minHigh4.3 - 8.3 minJOHN RANDOLPH MEDICAL CENTERAngle TEG78.0 deg63.0 - 78.0 degRIVERSIDE BEHAVIORAL HEALTH CENTERFibrinogen, Functional TEG33.1 pzOzqf68.0 - 32.0 mmRIVERSIDE BEHAVIORAL HEALTH CENTERInterpretation and review of laboratory resultsAbnormalRIVERSIDE BEHAVIORAL HEALTH CENTERKinetics TEG0.8 min0.8 - 2.1 minC[facility] (Max Clot) TEG 66.2 mm52.0 - 69.0 mmCEN[facility](Max Clot) Rapid TEG68.1 mm52.0 - 70.0 mmRIVERSIDE BEHAVIORAL HEALTH CENTERPerforming LocationPerformed at [facility] PerfusionBON [facility] HOSPITALReaction Time TEG5.5 min 4.6 - 9.1 minRIVERSIDE BEHAVIORAL HEALTH CENTERReaction Time TEG w Heparin5.8 min4.3 - 8.3 minDOM[facility] Glucose Fingerstickon [id number] [Mass/Vol]86 mg/dL75 - 110 mg/dLBON LEAD[facility]WO[facility] HOSPITALGlucose [Mass/Vol]106 mg/dL75 - 110 mg/dLBON LEAD-[facility]ADWO[facility] HOSPITALGlucose [Mass/Vol]86 mg/dL75 - 110 mg/dLBON LEAD-[facility]ADWO[facility] HOSPITALGlucose [Mass/Vol]88 mg/dL75 - 110 mg/dLBON [facility] HOSPITALBON [facility] HEALTHGlucose [Mass/Vol]90 mg/dL 75 - 110 mg/dLBON [facility]AIN HOSPITALBON [facility]OLM[facility] HOSPITALPOCT Glucoseon 38-18-8216Kalytzo [Mass/Vol]136 mg/bNPhkf87 - 100 mg/dLBON [facility] HEALTH Glucose [Mass/Vol]85 mg/dL74 - 100 mg/dLBON [facility] HEALTHGlucose [Mass/Vol]100 mg/dL74 - 100 mg/dLBON [facility] HEALTHGlucose [Mass/Vol]106 mg/tPZcbl95 - 100 mg/dLBON [facility] HEALTHGlucose [Mass/Vol]119 mg/mHSujs41 - 100 mg/dLBON [facility] HEALTHGlucose [Mass/Vol]90 mg/dL74 - 100 mg/dLBON [facility] HEALTHGlucose [Mass/Vol]95 mg/dL74 - 100 mg/dLBON [facility] HEALTHGlucose [Mass/Vol]89 mg/dL74 - 100 mg/dLBON [facility] HEALTHGlucose [Mass/Vol]104 mg/jXKjwq77 - 100 mg/dLBON [facility]ICAL CENTERCT urea (BUN)on 98-44-0850Yujq nitrogen [Mass/Vol]20 mg/dL8 - 26 mg/dLBON [facility] POTASSIUM (POC)on 36-19-2867Qpqqjduqb [Moles/Vol]4.9 mmol/LHigh3.5 - 4.5 mmol/L B[facility] HEALTHPotassium [Moles/Vol]5.3 mmol/LHigh3.5 - 4.5 mmol/LBON [facility] HEALTHPotassium [Moles/Vol]5.6 mmol/LHigh3.5 - 4.5 mmol/LBON [facility] HEALTHPotassium [Moles/Vol]6.1 mmol/LCritically high3.5 - 4.5 mmol/LBON [facility] HEALTHPotassium [Moles/Vol]5.3 mmol/LHigh3.5 - 4.5 mmol/LBON [facility] HEALTHPotassium [Moles/Vol]4.8 mmol/LHigh3.5 - 4.5 mmol/LBON [facility] HEALTHPotassium [Moles/Vol]4.5 mmol/L3.5 - 4.5 mmol/LBON [facility]ALTHY HEALTHPTon 14-62-1653IJQ Coag (PPP) [Relative time]1.3 {INR} NormalUc HealthComment on above:Result Comment: Therapeutic Range: Moderate Anticoagulant Intensity: INR = 2.0-3.0 High Anticoagulant Intensity: INR = 2.5-3.5Performed By: #### BMP, MG, CBC, PT, PTT #### [facility] [address] [place], [place] [phone] Ortho Tech: LALO Pereyra Coag (PPP) [Time]15.8 sHigh11.7-14.9Uc HealthComment on above:Performed By: #### BMP, MG, CBC, PT, PTT #### [facility] [address] [place] [address] Ortho Tech: Deng Pereyraime-INRon 25-48-3405JKU Coag (PPP) [Relative time]1.3 {INR}[facility]ALTH CENTERInterpretation and review of laboratory resultsAbnormalBON [facility] HEALTHPT Coag (PPP) [Time]15.8 sHighBON SECLIFEPOINT HEALTHY HEALTHSODIUM (POC)on 50-77-4548Tcuqsv [Moles/Vol]143 mmol/L138 - 146 mmol/LBON [facility] HEALTHSodium [Moles/Vol]140 mmol/L138 - 146 mmol/LBON [facility] HEALTHSodium [Moles/Vol]138 mmol/L138 - 146 mmol/LBON [facility] HEALTHSodium [Moles/Vol]140 mmol/L138 - 146 mmol/LB[facility] Sodium [Moles/Vol]143 mmol/L138 - 146 mmol/LBON [facility] HEALTHSodium [Moles/Vol]144 mmol/L138 - 146 mmol/LBON [facility]Y HEALTHType + Screenon 01-50-7640Ytky + ScreenSample Expiration 06/02/2022,2359 Arm Band Number [id number] ABO/Rh(D) B POSITIVE Antibody Screen NEGATIVE Unit Number [id number] Blood Component Type Leukocyte Reduced Red Cell Unit Division 00 Status of Unit REL FROM ALLOC Transfusion Status OK TO TRANSFUSE Crossmatch Result COMPATIBLE Unit Number [id number] Blood Component Type Leukocyte Reduced Red Cell Unit Division 00 Status of Unit REL FROM ALLOC Transfusion Status OK TO TRANSFUSE Crossmatch Result COMPATIBLE Unit Number [id number] Blood Component Type Leukocyte Reduced Red Cell Unit Division 00 Status of Unit REL FROM ALLOC Transfusion Status OK TO TRANSFUSE Crossmatch Result COMPATIBLE Unit Number [id number] Blood Component Type Leukocyte Reduced Red Cell Unit Division 00 Status of Unit REL FROM ALLOC Transfusion Status OK TO TRANSFUSE Crossmatch Result COMPATIBLENoKettering Health MiamisburgComment on above:Performed By: #### BMP, MG, CBC, PT, PTT #### [facility] [address] [place], [place] [phone] Ortho Tech: SUSIE Pereyra CHEST PORTABLEon 28-80-9730FL CHEST PORTABLE EXAMINATION: ONE XRAY VIEW OF [...] Signed by: Miki Delgado MD 06/02/22 Final resultNoRiverview Health InstitutePN RIS CONSOLIDATEDPN RIS CONSOLIDATEDBON [facility] [employer] Work Phone: radiology Study observation (narrative)[employer] Phone: XR CHEST PORTABLEOrdered By: Miki Delgado on 16-85-7131LLM [facility]IN[facility] MEDICAL CENTERiGlue Work Phone: [facility] 98-63-5354xCWL Coag (Bld) [Time]66.0 sHigJohnston Memorial Hospital HEALTHInterpretation and review of laboratory resultsAbnormVCU Medical CenteraPTT Coag (Bld) [Time]60.4 sHigh 23.0-36.5Uc HealthComment on above:Result Comment: NOTE: NEW REFERENCE RANGEPerformed By: #### BMP, MG, CBC, PT, PTT #### [facility] [address] [place] [address] [phone] Ortho Tech: Vincent Sy MDaPTT Coag (Bld) [Time]60.4 sHigJohnston Memorial Hospital HEALTHInterpretation and review of laboratory resultsAbnoBlack Hills Surgery CenteraPTT Coag (Bld) [Time]77.8 sHigh23.0-36.5 Uc HealthComment on above:Result Comment: NOTE: NEW REFERENCE RANGEPerformed By: #### PTT #### [facility] [address] [place], [place] [phone] Ortho Tech: Vincent Sy MDaPTT Coag (Bld) [Time]77.8 [facility] HospitalInterpretation and review of laboratory resultsAbnormVCU Medical CenteraPTT Coag (Bld) [Time]68.8 sHigh23.0-36.5 Uc HealthComment on above:Result Comment: NOTE: NEW REFERENCE RANGEPerformed By: #### BMP, MG, CBC, PT, PTT #### [facility] CampusiTag[facility] [address] [place] [address] [phone] Ortho Tech: Vincent Sy MDaPTT Coag (Bld) [Time]68.8 [facility] HEALTHInterpretation and review of laboratory resultsAbnoBlack Hills Surgery CenterBasic Metabolic Panelon 56-39-8701HSM/1.73 sq M.predicted MDRD (S/P/Bld) [Vol rate/Area]55 mL/min/{1.73_m2}Low- PINFBON [facility]ALTH [facility]ORAIN HOSPITALInterpretation and review of laboratory resultsAbnormalBON [facility] HOSPITALBasic Metabolic Profon 06-01-2022 GFR/1.73 sq M.predicted among non-blacks MDRD (S/P/Bld) [Vol rate/Area]55 mL/min/{1.73_m2}Low>60Uc HealthComment on above:Result Comment: These results are not [...] renal tubular secretion.Performed By: #### PTT #### [facility] [address] [place] [address] Ortho Tech: Vincent Sy MDAnion gap [Moles/Vol]7 mmol/LLow9-17[facility] on above:Performed By: #### PTT #### [facility] [address] [place] [address] Ortho Tech: MELLY Pereyraalcium [Mass/Vol]10.6 mg/dLHigh8.6-10.4BCarilion [facility]iles [facility] on above:Performed By: #### PTT #### [facility] [address] [place] [address] Ortho Tech: Vincent Sy MDChloride [Moles/Vol]104 mmol/QKctlgn99-585JYPCentra Bedford Memorial Hospital on above:Performed By: #### PTT #### [facility] [address] [place], [place] [phone] Ortho Tech: Vincent Sy MDCO2 [Moles/Vol]25 mmol/RMzjpcg65-30ONDCentra Bedford Memorial Hospital on above:Performed By: #### PTT #### [address] [address] Ortho Tech: MELLY Pereyrareatinine [Mass/Vol]1.65 mg/dLHigh0.70-1.20BON [facility]IAL HOSPITALComment on above:Performed By: #### PTT #### [address] [address] Ortho Tech: Vincent Sy MDGlucose [Mass/Vol]246 mg/cZNflk94-04LMT [facility] HOSPITALCommunising memorial hospital on above:Performed By: #### PTT #### [address] [address] Ortho Tech: Vincent Sy MDPotassium [Moles/Vol]4.4 mmol/LNormal3.7-5.3BON [facility]OSPITALCommunising memorial hospital on above:Performed By: #### PTT #### [address] [address] Ortho Tech: Vincent Sy MDSodium [Moles/Vol]136 mmol/FNfhvxn869-057EGJ [facility] HOSPITALCommunising memorial hospital on above:Performed By: #### PTT #### [address] [address] Ortho Tech: Vincent Sy MDUrea nitrogen [Mass/Vol]20 mg/dLNormal6-20BON [facility]OSPITALCommunising memorial hospital on above:Performed By: #### PTT #### [address] [address] Ortho Tech: MELLY Pereyrault,Urineon 78-93-8197Neah,UrineSpecimen Description .URINE Culture NO SIGNIFICANT GROWTH Report Status FINAL 05/31/2022NoKettering Health MiamisburgComment on above:Performed By: #### PLT #### [address] [address] Ortho Tech: Vincent Sy MDEKG 12 LeadOrdered By: Prateek Esquivel on 76-51-7670Xcaxbn Pasq27HCLCRA [facility] Work Phone: P [id number] SECAllen [facility]Y [facility] Work Phone: P-R Llklppan533 msBON SECAllen [facility] HE[facility] Work Phone: Q-T Tnwsoapo867 msBON SECOU[facility] PaySimpleY HE[facility] Work Phone: QRS Pikghbpx13 msBON [facility]Simple[facility] Work Phone: QTc Calculation (Bazett)410 msBON SECAllen [facility]Y HEALTH Work Phone: R [id number] [facility] Work Phone: T [id number] [facility] Work Phone: Ventricular [id number] [facility] Work Phone: BON [facility] Work Phone: EKG 12 Leadon 32-43-9040OMZR STV MUSEBON SECFrensenius Vascular Care Work Phone: Hemoglobin and Hematocriton 01-22-4955Hlhmzrmcor (Bld) [Volume fraction]39.3 %Low40.7 - 50.3 %BON [facility] HOSPITALHemoglobin (Bld) [Mass/Vol]13.0 g/dL13.0 - 17.0 g/dLBON [facility] HOSPITALInterpretation and review of laboratory resultsAbnormalBON SECCOMMUN[facility] SECHOLM[facility] HOSPITALHgb/Hcton 44-90-2064Siuhiqlkut (Bld) [Volume fraction]39.3 %Low40.7-50.3 Uc HealthComment on above:Performed By: #### PTT #### [facility] [address] [place] [address] Ortho Tech: Vincent Sy MDHemoglobin (Bld) [Mass/Vol]13.0 g/dLNormal 13.0-17.0Uc HealthComment on above:Performed By: #### PTT #### [facility] [address] [place] [address] [phone] Ortho Tech: HAIDER Pereyra Glucose Fingerstickon 33-96-5915Amsgojr [Mass/Vol]232 mg/dMYble80 - 110 mg/dLBON [facility] HOSPITALInterpretation and review of laboratory resultsAbnormalJOHN RANDOLPH MEDICAL CENTERGlucose [Mass/Vol]193 mg/pBWcln76 - 110 mg/dLBON [facility] HEALTH Interpretation and review of laboratory resultsAbnormalRIVERSIDE BEHAVIORAL HEALTH CENTERGlucose [Mass/Vol]234 mg/dIBnpu04 - 110 mg/dLBON [facility] HEALTHInterpretation and review of laboratory resultsAbnormalJOHN RANDOLPH MEDICAL CENTERGlucose [Mass/Vol]141 mg/aOJqwp30 - 110 mg/dLBON [facility] HEALTHInterpretation and review of laboratory results AbnormalBON LEAD-[facility]ADWOOD REGIONAL HOSPITALPlatelet Counton 21-09-2644Utqremiex (Bld) [#/Vol]216 10*3/jGRhcmti482-714JyqnbUc HealthComment on above:Performed By: #### BMP, MG, CBC, PT, PTT #### [facility] [address] [place] [address] [phone] Ortho Tech: DOLLY Pereyralatelets (Bld) [#/Vol]216 10*3/[facility]mont Health SystemAPTTon 20-03-6949xFWR Coag (Bld) [Time]38.6 sHigh23.0-36.5Uc HealthComment on above:Result Comment: NOTE: NEW REFERENCE RANGEPerformed By: #### PT, GLYHGB, CDP #### [facility] [address] [place] [address] [phone] Ortho Tech: Vincent Sy MDaPTT Coag (Bld) [Time]38.6 sHighBON [facility] HEALTHInterpretation and review of laboratory resultsAbnormalBON [facility] HEALTHBON [facility] HEALTHArterial Blood Gas, POCon 67-92-0135Msfrr TestPositiveBON [facility] OQWNCPTAY14.0B[facility] HEALTHHCO3 (Bld) [Moles/Vol]24.1 mmol/L21.0 - 28.0 mmol/LBON [facility] HEALTHNegative Base Excess, Art20.0 - 2.0BON [facility] HOSPITALOxygen saturation in Blood98 %94.0 - 98.0 %BON [facility] cIT969.3B[facility] pH7.315 Low7.350 - 7.450BON [facility] JF7385.8HighBON [facility] Sample SiteRight Radial ArteryBON [facility]AIN HOSPITALBasic Metabolic Panelon 47-62-8840Cljyu gap [Moles/Vol]9 mmol/L9 - 17 mmol/LBON [facility] HEALTH Calcium [Mass/Vol]10.0 mg/dL8.6 - 10.4 mg/dLBON [facility] HEALTHChloride [Moles/Vol]107 mmol/L98 - 107 mmol/LBON [facility] HEALTHCO2 [Moles/Vol]21 mmol/L20 - 31 mmol/LBON [facility] HEALTHCreatinine [Mass/Vol]1.65 mg/dLHigh 0.70 - 1.20 mg/dLBON [facility] HEALTHGFR/1.73 sq M.predicted MDRD (S/P/Bld) [Vol rate/Area]55 mL/min/{1.73_m2}Low- PINFBON [facility] HEALTHGlucose [Mass/Vol]125 mg/iAXjac33 - 99 mg/dLBON [facility] HEALTHInterpretation and review of laboratory resultsAbnormalBON [facility] HEALTHPotassium [Moles/Vol]4.6 mmol/L3.7 - 5.3 mmol/LBON [facility] HEALTHSodium [Moles/Vol] 137 mmol/L135 - 144 mmol/LBON [facility]ERY HEALTHUrea nitrogen [Mass/Vol]23 mg/dLHigh6 - 20 mg/dLBON [facility]CY HEALTHBON [facility] HOSPITALBasic Metabolic Profon 91-25-1061Ojqub gap [Moles/Vol]9 mmol/LNormal9-17Uc HealthComment on above:Performed By: #### PT, GLYHGB, CDP #### [facility] [address] [place] [address] Ortho Tech: MELLY Pereyraalcium [Mass/Vol]10.0 mg/dLNormal8.6-10.4Uc HealthComment on above:Performed By: #### PT, GLYHGB, CDP #### [facility] [employer] [address] [place] [address] Ortho Tech: MELLY Pereyrahloride [Moles/Vol]107 mmol/OHosoag29-218OjfxoUc HealthComment on above:Performed By: #### PT GLYHGB, CDP #### [facility] [address] [place] [address] Ortho Tech: Vincent Sy MDCO2 [Moles/Vol]21 mmol/EAookwl22-80LjuwqUc HealthComment on above:Performed By: #### PT, GLYHGB, CDP #### [facility] [employer] [address] [place] [address] Ortho Tech: MELLY Pereyrareatinine [Mass/Vol]1.65 mg/dLHigh0.70-1.20 Uc HealthComment on above:Performed By: #### PT, GLYHGB, CDP #### [facility] [address] [place] [address] Ortho Tech: Vincent Sy MDGFR/1.73 sq M.predicted among non-blacks MDRD (S/P/Bld) [Vol rate/Area]55 mL/min/{1.73_m2}Low>60Uc HealthComment on above:Result Comment: These results are not [...] #### PT GLYHGB, CDP #### [facility] [address] [place] [address] Ortho Tech: Vincent Sy MDGlucose [Mass/Vol]125 mg/tYIupj22-88RclcvScripps Mercy HospitalComment on above:Performed By: #### PT GLYHGB, CDP #### [facility] [address] [place] [address] Ortho Tech: DOLLY Pereyraotassium [Moles/Vol]4.6 mmol/LNormal3.7-5.3 Uc HealthComment on above:Performed By: #### PT GLYHGB, CDP #### [facility] [address] [place] [address] Ortho Tech: LISA Pereyraodium [Moles/Vol]137 mmol/TOusrjk434-847MkmkcUc HealthComment on above:Performed By: #### PT, GLYHGB, CDP #### [facility] [address] [place] [address] Ortho Tech: Vincent Sy MDUrea nitrogen [Mass/Vol]23 mg/dLHigh6-20Uc HealthComment on above:Performed By: #### PT GLYHGB, CDP #### [facility] [address] [place] [address] Ortho Tech: Vincent Sy MDHemoglobin A1Con 81-72-2627Mnmsdtx [Mass/Vol]243 mg/dLNormalUc HealthComment on above:Result Comment: The ADA and AACC recommend providing the estimated average glucose result to permit better patient understanding of their HBA1c result.Performed By: #### PT, GLYHGB, CDP #### [facility] [address] [place] [address] Ortho Tech: Vincent Sy MDHbA1c (Bld) [Mass fraction]10.1 %High4.0-6.0 Uc HealthComment on above:Performed By: #### PT, GLYHGB, CDP #### [facility] [address] [place] [address] Ortho Tech: Vincent Sy MDHemoglobin A1con 15-21-8898Hmcnmof glucose Estimated from glycated hemoglobin (Bld) [Mass/Vol]243 mg/dLBON [facility] HOSPITALHbA1c (Bld) [Mass fraction]10.1 %High4.0 - 6.0 %[facility] Interpretation and review of laboratory resultsAbnormSouthampton Memorial HospitalMRSA DNA Probe, Nasalon 73-15-1164Xhaqpfxftymejf and review of laboratory resultsAbnormalRIVERSIDE BEHAVIORAL HEALTH CENTERMRSA, DNA, Nasal POSITIVE: MRSA DNA detected by nucleic acid amplification.AbnormalNEGATIVERIVERSIDE BEHAVIORAL HEALTH CENTERSpecimen Description.NASAL SWABBON LANDMANN-JUNGMAN MEMORIAL HOSPITALSA, DNA, Nasalon 91-25-5009WHFR, DNA, NasalPOSITIVE: MRSA DNA detected by nucleic acid amplification.AbnormalNEGUc HealthComment on above:Result Comment: Results should be used as an adjunct to nosocomial control efforts to identify patients needing enhanced precautions. The test is not intended to identify patients with staphylococcal infections. Results should not be used to guide or monitor treatment for MRSA infections. Performed By: #### PLT #### [facility] [address] [place] [address] Ortho Tech: ILSA Pereyrapecronda Description.NASAL SWABNormalUc HealthComment on above:Performed By: #### PLT #### [facility] [address] [place] [address] Ortho Tech: Doir Pereyra Informationon 18-08-5103Bypiaibyateckt and review of laboratory resultsAbnormPioneer Community Hospital [facility] Glucose Fingerstickon 05-08-2253Xxohfpd [Mass/Vol]195 mg/dLHigh 75 - 110 mg/dLBON [facility] HOSPITALInterpretation and review of laboratory resultsAbnormalJOHN RANDOLPH MEDICAL CENTERGlucose [Mass/Vol]129 mg/cWVtsz61 - 110 mg/dLBON [facility] HOSPITALInterpretation and review of laboratory resultsAbnormalJOHN RANDOLPH MEDICAL CENTERGlucose [Mass/Vol]126 mg/hPHqdd36 - 110 mg/dLBON [facility] Interpretation and review of laboratory resultsAbnormSouthampton Memorial HospitalGlucose [Mass/Vol]134 mg/vMKtgb14 - 110 mg/dLBON [facility] HOSPITALInterpretation and review of laboratory resultsAbnormVCU Medical CenterPOCT Glucoseon 07-86-4174Uzmrbop [Mass/Vol] 144 mg/eMJeog48 - 100 mg/dLBON [facility] HOSPITALUrinalysis, Routineon 35-10-7311Pqgcymwgr, SemiQt,UrNegativeGlenwoodNEGUc Health Comment on above:Performed By: #### PT, GLYHGB, CDP #### [facility] [address] [place] [address] [phone] Ortho Tech: Claudio Pereyra, UrineNegativeNormalNEGUc HealthComment on above:Performed By: #### PT, GLYHGB, CDP #### [facility] [address] [place] [address] [phone] Ortho Tech: Eris Pereyra (U)ClearNormalCLEARUc HealthComment on above:Performed By: #### PT, GLYHGB, CDP #### [facility] [address] [place] [address] [phone] Ortho Tech: MELLY Pereyraolor (U)YellowNormalYELMercy St. Joseph'S HospitalComment on above:Performed By: #### PT, GLYHGB, CDP #### [facility] [address] [place] [address] Ortho Tech: Vincent Sy MDGlucose Ql (U)3+AbnormalNEGMerNaval Hospital LemooreComment on above:Performed By: #### PT, GLYHGB, CDP #### [facility] [address] [place] [address] Ortho Tech: Vincent Sy MDKetones Ql (U)NegativeNormalNEGMerNaval Hospital LemooreComment on above:Performed By: #### PT, GLYHGB, CDP #### [facility] [address] [place] [address] Ortho Tech: Vincent Sy MDLeukocyte esterase Test strip Ql (U)Negative NormalNEGMerNaval Hospital LemooreComment on above:Performed By: #### PT, GLYHGB, CDP #### [facility] [address] [place] [address] Ortho Tech: Vincent Sy MDNitrite,UrNegativeNormalNEGMerNaval Hospital LemooreComment on above:Performed By: #### PT, GLYHGB, CDP #### [facility] [address] [place] [address] Ortho Tech: DOLLY Pereyra,Ur5.9Mtyobn1.0-8.0[facility]cy St. Joseph'S HospitalComment on above:Performed By: #### PT, GLYHGB, CDP #### [facility] [address] [place] [address] Ortho Tech: DOLLY Pereyrarotein Ql (U)3+AbnormalNEGMerNaval Hospital LemooreComment on above:Performed By: #### PT, GLYHGB, CDP #### [facility] [address] [place] [address] Ortho Tech: LISA Pereyrapec. [place],Ur1.435Lvvgyk5.005-1.030MerNaval Hospital LemooreComment on above:Performed By: #### PT, GLYHGB, CDP #### [facility] [address] [place] [address] Ortho Tech: Vincent Sy MDUrobilinogen,UrNormalNormalNORMUc HealthComment on above:Performed By: #### PT, GLYHGB, CDP #### [facility] [address] [place] [address] Ortho Tech: Vincent Sy MDUrinalysis,Microon 21-09-3124Drsim8 TO 5 HYALINE Normal0-8MerNaval Hospital LemooreComment on above:Result Comment: Reference range defined for non-centrifuged specimen.Performed By: #### PT, GLYHGB, CDP #### [facility] [address] [place] [address] Ortho Tech: Vincent Sy MDEpithelial cells LM Ql (Urine sed)0 TO 2Normal 0-5MerNaval Hospital LemooreComment on above:Performed By: #### PT, GLYHGB, CDP #### [facility] [address] [place] [address] Ortho Tech: Vincent Sy MDUrine RBC's0 TO 8Anrtiy4-9RzunaNaval Hospital LemooreComment on above:Result Comment: Reference range defined for non- centrifuged specimen.Performed By: #### PT, GLYHGB, CDP #### [facility] [address] [place] [address] Ortho Tech: Vincent Sy MDUrine WBC's0 TO 2Wjsdbh0-7Rcxce St. Joseph'S HospitalComment on above:Performed By: #### PT, GLYHGB, CDP #### [facility] [address] [place] [address] Ortho Tech: Carlos Enrique Pereyra Cultureon 55-98-3520Nxoxeixiukpfh identified Cx Nom (Unsp spec)NO SIGNIFICANT GROWTHBON [facility] Specimen Description.URINEBON SECST. FRANCIS MEDICAL CENTERAPTTon 15-12-4341fAXB Coag (Bld) [Time]50.6 sHigh23.0-36.5Mercy St. Joseph'S HospitalComment on above:Result Comment: NOTE: NEW REFERENCE RANGEPerformed By: #### PLT #### [facility] [address] [place], [place] [phone] Ortho Tech: Vincent Sy MDaPTJeet Coag (Bld) [Time]50.6 sHighBON [facility] HOSPITALInterpretation and review of laboratory resultsAbnormalBON [facility] HOSPITALCBC auto differentialon 10-60-3186Ubnwbvux Eos #0.09BON [facility]OSPITALAbsolute Immature Granulocyte0.07BON [facility]OSPITALAbsolute Lymph #3.44[facility]OSPITALAbsolute [place] #0.96BON [facility]CHOL[facility] HOSPITALBasophils (Bld) [#/Vol]0.04 10*3/uLBON [facility]ITAL Basophils/100 WBC (Bld)0 %0 - 2 %BON [facility] HOSPITALEosinophils/100 WBC (Bld)1 %1 - 4 %BON [facility] HOSPITALHematocrit (Bld) [Volume fraction]41.2 % 40.7 - 50.3 %B[facility] HOSPITALHemoglobin (Bld) [Mass/Vol]13.9 g/dL13.0 - 17.0 g/dLBON [facility]CH[facility] HOSPITALImmature granulocytes/100 WBC (Bld)1 %Jroe5ZIU [facility] HOSPITALInterpretation and review of laboratory resultsAbnormalBON [facility] HOSPITALLymphocytes/100 WBC (Bld)35 %24 - 43 %B[facility]ORS HOSPITALH (RBC) [Entitic mass]29.8 pg25.2 - 33.5 pgBON DOCTORS HOSPITALHC (RBC) [Mass/Vol]33.7 g/dL28.4 - 34.8 g/dLBON [facility]CHOL[facility] HOSPITALMCV (RBC) [Entitic vol]88.2 fL82.6 - 102.9 fLRIVERSIDE BEHAVIORAL HEALTH CENTERMonocytes/100 WBC (Bld)10 %3 - 12 %BON [facility] HOSPITALNRBC Automated0.00.0 per 100 WBCBON [facility] LORAIN HOSPITALPlatelet distribution width (Bld) [Ratio]13.2 %11.8 - 14.4 % BON [facility]ALTHY HEALTHPlatelet mean volume (Bld) [Entitic vol]10.6 fL8.1 - 13.5 fLBON [facility] HEALTHPlatelets (Bld) [#/Vol]236 10*3/uLBON [facility] HEALTHRBC (Bld) [#/Vol]4.67 10*6/uL4.21 - 5.77 m/uLBON MER[facility] HEALTH LORAIN HOSPITALSeg Lqzwjsfrhsd96 %36 - 65 %BON MER[facility] HEALTH L[facility] HOSPITALSegs Absolute5.25B[facility] HEALTHWBC (Bld) [#/Vol]9.9 10*3/uLBON [facility]ITALBON SECHOLM[facility] HOSPITALCBC with Diffon [id number]. Basophil0.04 k/uLNormal 0.00-0.20Uc HealthComment on above:Performed By: #### BRITTANEY BROWN, CDP #### RUN [address] [place], [place] [id number] Ortho Tech: Frankie Pereyra.Imm.Granulocyte0.07 k/uLNormal0.00-0.30[facility]c HealthComment on above:Performed By: #### BRITTANEY BROWN, CDP #### RUN [facility] [place] [address] Ortho Tech: Frankie Pereyra.Neutrophil (Seg)5.25 k/uLNormal1.50-8.10 [facility]c HealthComment on above:Performed By: #### BRITTANEY BROWN, CDP #### [facility] [address] [place] [id number] Ortho Tech: Vincent Sy MDBasophils/100 WBC (Bld)0 %Normal0-2MScripps Mercy HospitalComment on above:Performed By: #### PT, GLYHGB, CDP #### [facility] [address] [place] [id number] Ortho Tech: Vincent Sy MDEosinophils (Bld) [#/Vol]0.09 10*3/uLNormal 0.00-0.44Uc HealthComment on above:Performed By: #### PT, GLYHGB, CDP #### [facility] [address] [place] [address] Ortho Tech: Vincent Sy MDEosinophils/100 WBC (Bld)1 %Normal1-4Uc HealthComment on above:Performed By: #### PT, GLYHGB, CDP #### [facility] [address] [place] [address] Ortho Tech: Vincent Sy MDErythrocyte distribution width (RBC) [Ratio]13.2 %Fyjnyt13.8-14.4Uc HealthComment on above:Performed By: #### PT, GLYHGB, CDP #### [facility] [address] [place] [address] Ortho Tech: Vincent Sy MDHematocrit (Bld) [Volume fraction]41.2 %Normal 40.7-50.3MScripps Mercy HospitalComment on above:Performed By: #### PT, GLYHGB, CDP #### [facility] [address] [place] [address] Ortho Tech: Vincent Sy MDHemoglobin (Bld) [Mass/Vol]13.9 g/dLNormal 13.0-17.0Uc HealthComment on above:Performed By: #### PT, GLYHGB, CDP #### [facility] [address] [place] [address] Ortho Tech: Kali Pereyrature granulocytes/100 WBC (Bld)1 %Ssid1KhhjeUc HealthComment on above:Performed By: #### PT, GLYHGB, CDP #### [facility] [address] [place] [address] Ortho Tech: Linda Pereyramphocytes (Bld) [#/Vol]3.44 10*3/uLNormal 1.10-3.70Uc HealthComment on above:Performed By: #### PT, GLYHGB, CDP #### [facility] [address] [place] [address] Ortho Tech: Linda Pereyramphocytes/100 WBC (Bld)35 %Fzumfv36-89IamteUc HealthComment on above:Performed By: #### PT, GLYHGB, CDP #### [address] [address] Ortho Tech: JODEE PereyraCH (RBC) [Entitic mass]29.8 vcTrzbre08.2-33.5 Uc HealthComment on above:Performed By: #### PT, GLYHGB, CDP #### [address] [address] Ortho Tech: JODEE PereyraCHC (RBC) [Mass/Vol]33.7 g/fSJisnol02.4-34.8 Uc HealthComment on above:Performed By: #### PT, GLYHGB, CDP #### [facility] [address] [place] [address] Ortho Tech: JODEE PereyraCV (RBC) [Entitic vol]88.2 iPPwfsgf92.6-102.9 Uc HealthComment on above:Performed By: #### PT, GLYHGB, CDP #### [address] [address] Ortho Tech: Vincent Sy MDMonocytes (Bld) [#/Vol]0.96 10*3/uLNormal 0.10-1.20Uc HealthComment on above:Performed By: #### PT, GLYHGB, CDP #### [facility] [address] [place] [address] Ortho Tech: JODEE Pereyraonocytes/100 WBC (Bld)10 %Normal3-12Uc HealthComment on above:Performed By: #### PT, GLYHGB, CDP #### [place] [address] Ortho Tech: Starr Pereyraophil (Seg)53 %Pgicge97-11YwxzsUc HealthComment on above:Performed By: #### PT, GLYHGB, CDP #### [place] [address] Ortho Tech: Vincent Sy MDNRBC Automated0.0 per 100 WBCNormal0.0Uc HealthComment on above:Performed By: #### PT, GLYHGB, CDP #### [place] [address] Ortho Tech: DOLLY Pereyralatelet mean volume (Bld) [Entitic vol]10.6 fL Normal8.1-13.5Uc HealthComment on above:Performed By: #### PT, GLYHGB, CDP #### [facility] [address] [place] [address] Ortho Tech: Vincent Sy MDPlatelets (Bld) [#/Vol]236 10*3/nPWuclzk433-558 Uc HealthComment on above:Performed By: #### PT GLYHGB, CDP #### [facility] [address] [place] [address] Ortho Tech: MARSHA Pereyra ([facility]) [#/Vol]4.67 10*6/uLNormal4.21-5.77 Uc HealthComment on above:Performed By: #### PT, GLYHGB, CDP #### [facility] [address] [place] [address] Ortho Tech: DE Pereyra ([facility]) [#/Vol]9.9 10*3/uLNormal3.5-11.3Mfirelands regional medical center south campusy [facility] Joseph'S HospitalComment on above:Performed By: #### PT, GLYHGB, CDP #### [facility] [address] [place] [address] Ortho Tech: Hernesto Pereyraroscopic Urinalysison 02-08-4397Caqix UA2 TO 5 HYALINE Reference range defined for non-centrifuged specimen.[facility] BEHAVIORAL HEALTH CENTEREpithelial Cells UA0 TO 2B[facility] clumps Auto (Urine sed) [#/Area]0 TO 2BON [facility]OSPITALBC, UA0 TO 2BON [facility]PO Glucose Fingerstickon 95-13-5802Unevxnp [Mass/Vol] 270 mg/cLKnfe86 - 110 mg/dLBON [facility]OSPITALInterpretation and review of laboratory resultsAbnormVCU Medical Center Glucose [Mass/Vol]276 mg/xRDehp63 - 110 mg/dLBON [facility] Interpretation and review of laboratory resultsAbnormSouthampton Memorial HospitalGlucose [Mass/Vol]182 mg/jNYsei67 - 110 mg/dLBON [facility] HOSPITALInterpretation and review of laboratory resultsAbnormalJOHN RANDOLPH MEDICAL CENTERGlucose [Mass/Vol]158 mg/cVNkcx20 - 110 mg/dLBON [facility] HOSPITALInterpretation and review of laboratory results AbnormalBON LEAD-DEADWOOD REGIONAL HOSPITALPTon 06-32-4658ZKB Coag (PPP) [Relative time]1.0 {INR}NormalUc HealthComment on above:Result Comment: Therapeutic Range: Moderate Anticoagulant Intensity: INR = 2.0-3.0 High Anticoagulant Intensity: INR = 2.5-3.5Performed By: #### PT, GLYHGB, CDP #### [facility] [address] [place] [address] Ortho Tech: LALO Pereyra Coag (PPP) [Time]13.3 pDxdxcx48.7-14.9Uc HealthComment on above:Result Comment: NOTE: NEW REFERENCE RANGEPerformed By: #### PT, GLYHGB, CDP #### [facility] [address] [place] [address] [phone] Ortho Tech: Jeffrey Pereyra Counton 78-26-0994Dtgtngwye (Bld) [#/Vol]228 10*3/uRUnkikt175-626TqhzoUc HealthComment on above: Performed By: #### BMP, MG, CBC, PT, PTT #### [facility] [address] [place] [address] [phone] Ortho Tech: Thu Pereyra (Bld) [#/Vol]228 10*3/uLBON LEAD-DEADWOOD REGIONAL HOSPITALProtime-INRon 90-86-4128HKI Coag (PPP) [Relative time]1.0 {INR}BON [facility]OSPITALPT Coag (PPP) [Time]13.3 sBON LEAD-DEADWOOD REGIONAL HOSPITALUrinalysison 39-63-7468Tjbztzshv UrineNegativeNEGATIVERIVERSIDE BEHAVIORAL HEALTH CENTERColor, UAYellowYellowRIVERSIDE BEHAVIORAL HEALTH CENTERGlucose Auto test strip (U) [Mass/Vol]3+AbnormalNEGATIVERIVERSIDE BEHAVIORAL HEALTH CENTERInterpretation and review of laboratory resultsAbnormalBON SECMAR[facility] HEALTHKetones (U) [Mass/Vol]NegativeNEGATIVEBON SECHOLM[facility] Leukocyte esterase Auto test strip Ql (U)NegativeNEGATIVEBON SECMARIA ELENA [facility]ILLICOTHE [facility]OSPITAL HEALTHNitrite Auto test strip Ql (U)NegativeNEGATIVEBON [facility] HEALTH Protein (U) [Mass/Vol]5.5 mg/dL5.0 - 8.0BON [facility] HEALTHProtein (U) [Mass/Vol]3+AbnormalNEGATIVEBON [facility] HEALTHSpecific [place], UA1.019 1.005 - 1.030BON [facility] HEALTHTurbidity UAClearClearBON [facility] HEALTHUrine HgbNegativeNEGATIVEBON [facility] L[facility]AIN HOSPITALUrobilinogen, UrineNormal NormalBON SECST. FRANCIS MEDICAL CENTERAPTTon 56-41-9600rTHC Coag (Bld) [Time]58.3 sHigh23.0-36.5Uc HealthComment on above:Result Comment: NOTE: NEW REFERENCE RANGEPerformed By: #### BMP, MG, CBC, PT, PTT #### [facility] [address] [place] [address] Ortho Tech: Courtney Pereyra Coag (Bld) [Time]58.3 [facility] HospitalInterpretation and review of laboratory resultsAbnormalBON [facility] HOSPITALBasic Metab w/rfx MGon 88-15-3204Wifbd gap [Moles/Vol]9 mmol/LNormal9-17Uc HealthComment on above: Performed By: #### BMP, MG, CBC, PT, PTT #### [facility] [address] [place] [address] Ortho Tech: MELLY Pereyraalcium [Mass/Vol]10.6 mg/dLHigh8.6-10.4Uc HealthComment on above:Performed By: #### BMP, MG, CBC, PT, PTT #### [facility] [address] [place] [address] Ortho Tech: MELLY Pereyrahloride [Moles/Vol]107 mmol/RUazqug77-211BcbqqUc HealthComment on above:Performed By: #### BMP, MG, CBC, PT, PTT #### [facility] [place] [address] Ortho Tech: Vincent Sy MDCO2 [Moles/Vol]21 mmol/CPefggn51-54VkrdfUc HealthComment on above:Performed By: #### BMP, MG, CBC, PT, PTT #### [facility] [address] [place] [address] Ortho Tech: MELLY Pereyrareatinine [Mass/Vol]1.47 mg/dLHigh0.70-1.20 Uc HealthComment on above:Performed By: #### BMP, MG, CBC, PT, PTT #### [facility]usiTag[facility] [address] [place] [address] Ortho Tech: Vincent Sy MDGFR/1.73 sq M.predicted among non-blacks MDRD (S/P/Bld) [Vol rate/Area]mL/min/{1.73_m2}Normal>60Uc HealthComment on above:Result Comment: These results are not [...] #### BMP, MG, CBC, PT, PTT #### [facility]usi[facility] [address] [place] [address] Ortho Tech: Vincent Sy MDGlucose [Mass/Vol]184 mg/tXImgt83-30WupjjScripps Mercy HospitalComment on above:Performed By: #### BMP, MG, CBC, PT, PTT #### [facility] [address] [place] [address] Ortho Tech: DOLLY Pereyraotassium [Moles/Vol]4.9 mmol/LNormal3.7-5.3 Uc HealthComment on above:Performed By: #### BMP, MG, CBC, PT, PTT #### [facility] [address] [place] [address] Ortho Tech: LISA Pereyraodium [Moles/Vol]137 mmol/UQxqomw686-899TdskdUc HealthComment on above:Performed By: #### BMP, MG, CBC, PT, PTT #### [facility] [address] [place] [address] Ortho Tech: Vincent Sy MDUrea nitrogen [Mass/Vol]15 mg/dLNormal6-20Uc HealthComment on above:Performed By: #### BMP, MG, CBC, PT, PTT #### [facility] [address] [place] [address] Ortho Tech: Vincent Sy MDBabaptist health la grange Metabolic Panel w/ Reflex to MGon 73-13-1298Aejnp gap [Moles/Vol]9 mmol/L9 - 17 mmol/LBON SECFrensenius Vascular Care Calcium [Mass/Vol]10.6 mg/dLHigh8.6 - 10.4 mg/dLBON SECOURS [employer] HEALTHChloride [Moles/Vol]107 mmol/L98 - 107 mmol/LBON SECOURS PaySimpleY HEALTHCO2 [Moles/Vol]21 mmol/L20 - 31 mmol/LBON SECOURS NovitazCreatinine [Mass/Vol]1.47 mg/dLHigh 0.70 - 1.20 mg/dLBON SECOURS PaySimpleY WurlGFR/1.73 sq M.predicted MDRD (S/P/Bld) [Vol rate/Area]- PINFBON SECFrensenius Vascular CareGlucose [Mass/Vol]184 mg/hJRdcc87 - 99 mg/dLBON SECFrensenius Vascular CareInterpretation and review of laboratory results AbnormalBON [facility] HOSPITALPotassium [Moles/Vol]4.9 mmol/L3.7 - 5.3 mmol/L BON [facility] L[facility] HOSPITALSodium [Moles/Vol]137 mmol/L135 - 144 mmol/LBON [facility] LORAIN HOSPITALUrea nitrogen [Mass/Vol]15 mg/dL6 - 20 mg/dLBON [facility] BON [facility] HOSPITALPOC Glucose Fingerstickon 60-02-1703Qfblynj [Mass/Vol] 210 mg/uZCeed88 - 110 mg/dLBON [facility] HOSPITALInterpretation and review of laboratory resultsAbnormalJOHN RANDOLPH [facility]ICAL [facility]ENTER Glucose [Mass/Vol]303 mg/tRUyhn85 - 110 mg/dLBON [facility] Interpretation and review of laboratory resultsAbnormalRIVERSIDE BEHAVIORAL HEALTH CENTER BON [facility] HOSPITALGlucose [Mass/Vol]235 mg/kQGzzf56 - 110 mg/dLBON [facility] HOSPITALInterpretation and review of laboratory resultsAbnormalJOHN RANDOLPH MEDICAL CENTERGlucose [Mass/Vol]172 mg/oXNiqd93 - 110 mg/dLBON [facility] HOSPITALInterpretation and review of laboratory results AbnormalBON [facility] 98-47-0561aYFA Coag (Bld) [Time]54.7 sHigh23.0-36.5Uc HealthComment on above:Result Comment: NOTE: NEW REFERENCE RANGEPerformed By: #### BMP, MG, CBC, PT, PTT #### [facility] [address] [place] [address] [phone] Ortho Tech: Vincent Sy MDaPTT Coag (Bld) [Time]54.7 sHighBON [facility] HOSPITALInterpretation and review of laboratory resultsAbnormalJOHN RANDOLPH MEDICAL CENTERaPTT Coag (Bld) [Time]60.3 sHigh23.0-36.5 Uc HealthComment on above:Result Comment: NOTE: NEW REFERENCE RANGEPerformed By: #### PLT #### [facility] [address] [place] [address]64 Ortho Tech: Vincent Sy MDaPTT Coag (Bld) [Time]60.3 sHighBON [facility] HOSPITALInterpretation and review of laboratory resultsAbnormalBON [facility] HOSPITALaPTT Coag (Bld) [Time]45.5 sHigh23.0-36.5 Uc HealthComment on above:Result Comment: NOTE: NEW REFERENCE RANGEPerformed By: #### PT, GLYHGB, CDP #### [address] [address] Ortho Tech: Tim Pereyra Metab w/rfx MGon 92-34-0726Volqa gap [Moles/Vol]10 mmol/LNormal9-17Uc HealthComment on above: Performed By: #### PLT #### [facility] [address] [place] [address] Ortho Tech: Vincent Sy MDCalcium [Mass/Vol]10.0 mg/dLNormal8.6-10.4Uc HealthComment on above:Performed By: #### PLT #### [facility] [address] [place] [address] Ortho Tech: Vincent Sy MDChloride [Moles/Vol]107 mmol/SAhyjuq74-856PlzwzUc HealthComment on above:Performed By: #### PLT #### [facility] [address] [place] [address] Ortho Tech: Vincent Sy MDCO2 [Moles/Vol]19 mmol/KEln17-25HgelyUc HealthComment on above:Performed By: #### PLT #### [facility] [address] [place] [address] Ortho Tech: MELLY Pereyrareatinine [Mass/Vol]1.41 mg/dLHigh0.70-1.20 Uc HealthComment on above:Performed By: #### PLT #### [place] [address] Ortho Tech: Vincent Sy MDGFR/1.73 sq M.predicted among non-blacks MDRD (S/P/Bld) [Vol rate/Area]mL/min/{1.73_m2}Normal>60Uc HealthComment on above:Result Comment: These results are not [...] renal tubular secretion.Performed By: #### PLT #### [place] [address] Ortho Tech: Vincent Sy MDGlucose [Mass/Vol]163 mg/tNQbhm21-36YzlzqScripps Mercy HospitalComment on above:Performed By: #### PLT #### [place] [address] Ortho Tech: Vincent Sy MDPotassium [Moles/Vol]4.4 mmol/LNormal3.7-5.3 Uc HealthComment on above:Performed By: #### PLT #### [facility] [address] [place] [address] Ortho Tech: Vincent Sy MDSodium [Moles/Vol]136 mmol/XLqbkfv338-290FnvbsUc HealthComment on above:Performed By: #### PLT #### [place] [address] Ortho Tech: Vincent Sy MDUrea nitrogen [Mass/Vol]16 mg/dLNormal6-20Uc HealthComment on above:Performed By: #### PLT #### [facility] [address] [place] [id number] Ortho Tech: Vincent Sy MDBack[facility] Metabolic Panel w/ Reflex to MGon 51-23-6586Xuaco gap [Moles/Vol]10 mmol/L9 - 17 mmol/LBON [facility] Calcium [Mass/Vol]10.0 mg/dL8.6 - 10.4 mg/dLBON [facility] HEALTHChloride [Moles/Vol]107 mmol/L98 - 107 mmol/LBON [facility] HEALTHCO2 [Moles/Vol]19 mmol/LLow20 - 31 mmol/LBON [facility] HOSPITALCreatinine [Mass/Vol]1.41 mg/dL High0.70 - 1.20 mg/dLBON [facility] HOSPITALGFR/1.73 sq M.predicted MDRD (S/P/Bld) [Vol rate/Area]- PINFBON [facility]ALTH LORAIN HOSPITALGlucose [Mass/Vol]163 mg/wVAjua13 - 99 mg/dLBON [facility] HOSPITALInterpretation and review of laboratory resultsAbnormalRIVERSIDE BEHAVIORAL HEALTH CENTERPotassium [Moles/Vol]4.4 mmol/L3.7 - 5.3 mmol/LBON [facility] L[facility] HOSPITALSodium [Moles/Vol]136 mmol/L135 - 144 mmol/LBON [facility] LORAIN HOSPITALUrea nitrogen [Mass/Vol]16 mg/dL6 - 20 mg/dL B[facility]PITALPO Glucose Fingerstickon 05-87-3676Hgqejwi [Mass/Vol]212 mg/cNJetj83 - 110 mg/dLBON [facility] HEALTH Interpretation and review of laboratory resultsAbnormalINOVA LOUDOUN [facility]ITAL HEALTH B[facility] HEALTHGlucose [Mass/Vol]254 mg/mPGuim42 - 110 mg/dLBON [facility] HEALTHInterpretation and review of laboratory resultsAbnormalBON [facility] HEALTHGlucose [Mass/Vol]231 mg/nZXnyd73 - 110 mg/dLBON [facility] HEALTHInterpretation and review of laboratory results AbnormalBON SECOURS [facility] BARABOOGlucose [Mass/Vol]163 mg/sVUbsc08 - 110 mg/dLBON [facility] HEALTHInterpretation and review of laboratory resultsAbnormalJOHN RANDOLPH [facility]ICAL CENTER Platelet Counton 09-30-6081Eijrpbhmd (Bld) [#/Vol]201 10*3/oGQimylw731-624JcqylUc HealthComment on above:Performed By: #### PLT #### [facility] [address] [place], [place] [phone] Ortho Tech: DOLLY Pereyralatelets (Bld) [#/Vol]201 10*3/uLCHILDREN'S HOSPITAL OF RICHMOND AT VCUTon 66-66-1899aOMX Coag (Bld) [Time]45.5 sHighBON [facility] HOSPITALInterpretation and review of laboratory results AbnormalJOHN RANDOLPH MEDICAL CENTERaPTT Coag (Bld) [Time] 53.5 sHigh23.0-36.5Uc HealthComment on above:Result Comment: NOTE: NEW REFERENCE RANGEPerformed By: #### PT, GLYHGB, CDP #### [facility] [address] [place] [address] Ortho Tech: Vincent Sy MDaPTJeet Coag (Bld) [Time]53.5 sHighBON [facility] HOSPITALInterpretation and review of laboratory resultsAbnormVCU Medical CenteraPTT Coag (Bld) [Time]102.9 sCritically high 23.0-36.5Uc HealthComment on above:Result Comment: NOTE: NEW REFERENCE RANGEPerformed By: #### BMP, MG, CBC, PT, PTT #### [facility] [address] [place], [place] [phone] Ortho Tech: Vincent Sy MDaPTT Coag (Bld) [Time]102.9 sCritically highRIVERSIDE BEHAVIORAL HEALTH CENTERInterpretation and review of laboratory resultsAbnormalJOHN RANDOLPH MEDICAL CENTERaPTT Coag (Bld) [Time]40.0 sHigh 23.0-36.5Uc HealthComment on above:Result Comment: NOTE: NEW REFERENCE RANGEPerformed By: #### BMP, MG, CBC, PT, PTT #### [facility] [address] [place] [address] Ortho Tech: Tim Pereyra Metab w/rfx MGon 93-35-4757Dyafl gap [Moles/Vol]8 mmol/LLow9-17Uc HealthComment on above: Performed By: #### BMP, MG, CBC, PT, PTT #### [place] [address] Ortho Tech: Vincent Sy MDCalcium [Mass/Vol]9.5 mg/dLNormal8.6-10.4Uc HealthComment on above:Performed By: #### BMP, MG, CBC, PT, PTT #### [facility] [address] [place] [address] Ortho Tech: MELLY Pereyrahloride [Moles/Vol]108 mmol/XJjfd76-162AkszgUc HealthComment on above:Performed By: #### BMP, MG, CBC, PT, PTT #### [facility] [address] [place] [address] Ortho Tech: Vincent Sy MDCO2 [Moles/Vol]21 mmol/EDsjzgb43-75WdmggUc HealthComment on above:Performed By: #### BMP, MG, CBC, PT, PTT #### [facility] [address] [place] [address]993 Ortho Tech: Vincent Sy MDCreatinine [Mass/Vol]1.56 mg/dLHigh0.70-1.20 Uc HealthComment on above:Performed By: #### BMP, MG, CBC, PT, PTT #### [facility] [address] [place] [address] Ortho Tech: Vincent Sy MDGFR/1.73 sq M.predicted among non-blacks MDRD (S/P/Bld) [Vol rate/Area]58 mL/min/{1.73_m2}Low>60Uc HealthComment on above:Result Comment: These results are not [...] #### BMP, MG, CBC, PT, PTT #### [facility] [address] [place] [address] Ortho Tech: Vincent Sy MDGlucose [Mass/Vol]209 mg/jFPyls04-53VcczpScripps Mercy HospitalComment on above:Performed By: #### BMP, MG, CBC, PT, PTT #### [facility] [address] [place] [address] Ortho Tech: Vincent Sy MDPotassium [Moles/Vol]4.3 mmol/LNormal3.7-5.3 Uc HealthComment on above:Performed By: #### BMP, MG, CBC, PT, PTT #### [facility] [address] [place] [address] Ortho Tech: Vincent Sy MDSodium [Moles/Vol]137 mmol/LGuipnp041-810DnznmUc HealthComment on above:Performed By: #### BMP, MG, CBC, PT, PTT #### [facility] [address] [place] [address] Ortho Tech: Vincent Sy MDUrea nitrogen [Mass/Vol]19 mg/dLNormal6-20Uc HealthComment on above:Performed By: #### BMP, MG, CBC, PT, PTT #### [facility] [address] [place], [place] [phone] Ortho Tech: Tim Pereyra Metabolic Panel w/ Reflex to MGon 48-43-5751Mseyp gap [Moles/Vol]8 mmol/LLow9 - 17 mmol/LBON [facility] Calcium [Mass/Vol]9.5 mg/dL8.6 - 10.4 mg/dLBON [facility] HOSPITALChloride [Moles/Vol]108 mmol/LHigh98 - 107 mmol/LBON [facility] HOSPITALCO2 [Moles/Vol] 21 mmol/L20 - 31 mmol/LBON [facility] HOSPITALCreatinine [Mass/Vol]1.56 mg/dL High0.70 - 1.20 mg/dLBON [facility] HOSPITALGFR/1.73 sq M.predicted MDRD (S/P/Bld) [Vol rate/Area]58 mL/min/{1.73_m2}Low- PINFBON [facility] Glucose [Mass/Vol]209 mg/hELqgs44 - 99 mg/dLBON [facility] Interpretation and review of laboratory resultsAbnormalRIVERSIDE BEHAVIORAL HEALTH CENTER Potassium [Moles/Vol]4.3 mmol/L3.7 - 5.3 mmol/LBON [facility] L[facility] HOSPITALSodium [Moles/Vol]137 mmol/L135 - 144 mmol/LBON [facility] LORAIN HOSPITALUrea nitrogen [Mass/Vol]19 mg/dL6 - 20 mg/dLBON [facility] LORAIN HOSPITALBON [facility] Calcium, Ionicon 47-52-8303Jvsoxol [Moles/Vol]1.40 mmol/LHigh1.13-1.33Uc HealthComment on above:Performed By: #### BMP, MG, CBC, PT, PTT #### [facility] [address] [place], [place] [phone] Ortho Tech: Roscoe Pereyraium, Ionizedon 71-83-4701Praqgpo.ionized (Bld) [Moles/Vol]1.4 mmol/LHigh1.13 - 1.33 mmol/LBON [facility] Interpretation and review of laboratory resultsAbnormSouthampton Memorial HospitalPOC Glucose Fingerstickon 28-05-4761Bnuoilt [Mass/Vol] 276 mg/cRHdos20 - 110 mg/dLBON [facility] HOSPITALInterpretation and review of laboratory resultsAbnormalJOHN RANDOLPH [facility] Glucose [Mass/Vol]215 mg/rZFirr20 - 110 mg/dLBON [facility] Interpretation and review of laboratory resultsAbnormSouthampton Memorial HospitalGlucose [Mass/Vol]208 mg/vTVjjk85 - 110 mg/dLBON [facility]OSPITALInterpretation and review of laboratory resultsAbnormVCU Medical CenterGlucose [Mass/Vol]192 mg/sMNrdn83 - 110 mg/dLBON [facility]OSPITALInterpretation and review of laboratory results AbnormalBON LEAD-DEADWOOD REGIONAL HOSPITALVL DUP CAROTID BILATERAL on 68-95-7920NQIZ [facility]V [facility] Work Phone: vl DUP CAROTID BILATERALOrdered By: Sony Toro on 66-23-2191FGA [facility] Work Phone: vl DUP UPPER EXTREMITY ARTERIES BILATERALon 05-27-[address] [facility] Work Phone: bon [facility] Work Phone: vl VEIN MAPPING LOWER BILATERALon 22-52-9881ASBQ [facility] Work Phone: bon [facility] Work Phone: aPTTon 39-66-3057mGTF Coag (Bld) [Time]40.0 sHighBON [facility] HOSPITALInterpretation and review of laboratory resultsAbnoBlack Hills Surgery CenteraPTT Coag (Bld) [Time]52.9 sHigh 23.0-36.5Uc HealthComment on above:Result Comment: NOTE: NEW REFERENCE RANGEPerformed By: #### PTT #### [facility]usi[facility] [address] [place] [address] Ortho Tech: Vincent Sy MDaPTT Coag (Bld) [Time]52.9 [facility] HospitalInterpretation and review of laboratory resultsAbnoBlack Hills Surgery CenteraPTT Coag (Bld) [Time]62.9 sHigh23.0-36.5 Uc HealthComment on above:Result Comment: NOTE: NEW REFERENCE RANGEPerformed By: #### PT, GLYHGB, CDP #### [facility]usiTag[facility] [address] [place] [address] Ortho Tech: Vincent Sy MDaPTT Coag (Bld) [Time]62.9 [facility] HospitalInterpretation and review of laboratory resultsAbnoBlack Hills Surgery CenterBasic Metab w/rfx MGon 92-80-6610Sfufx gap [Moles/Vol]9 mmol/LNormal9-17Uc HealthComment on above: Performed By: #### PT, GLYHGB, CDP #### [facility] [address] [place], [place] [id number] Ortho Tech: MELLY Pereyraalcium [Mass/Vol]9.4 mg/dLNormal8.6-10.4Uc HealthComment on above:Performed By: #### PT, GLYHGB, CDP #### [facility] [address] [place] [phone] Ortho Tech: Vincent Sy MDChloride [Moles/Vol]109 mmol/OUtcs64-834UwngqUc HealthComment on above:Performed By: #### PT, GLYHGB, CDP #### [facility] [address] [place], [place] [phone] Ortho Tech: Vincent Sy MDCO2 [Moles/Vol]23 mmol/GCgvfny25-98FwvamUc HealthComment on above:Performed By: #### BRITTANEY BROWN, CDP #### [facility] [employer] [address] [place] [id number] Ortho Tech: MELLY Pereyrareatinine [Mass/Vol]1.55 mg/dLHigh0.70-1.20 [facility]c HealthComment on above:Performed By: #### STEHPANIE GLYLEOBARDO, CDP #### [facility] [employer] [address] [place] [id number] Ortho Tech: Vincent Sy MDGFR/1.73 sq M.predicted among non-blacks MDRD (S/P/Bld) [Vol rate/Area]59 mL/min/{1.73_m2}Low>60Uc HealthComment on above:Result Comment: These results are not [...] secretion.Performed By: #### BRITTANEY BROWN, CDP #### [facility] [address] [place] [phone] Ortho Tech: Vincent Sy MDGlucose [Mass/Vol]212 mg/vJEsxh64-66XccdvScripps Mercy HospitalComment on above:Performed By: #### BRITTANEY BROWN, CDP #### [facility] [employer] [address] [place] [address] Ortho Tech: DOLLY Pereyraotassium [Moles/Vol]4.3 mmol/LNormal3.7-5.3 Uc HealthComment on above:Performed By: #### PT, GLYHGB, CDP #### [facility] [address] [place] [address] Ortho Tech: LISA Pereyraodium [Moles/Vol]141 mmol/CChamxl949-165KlhdnUc HealthComment on above:Performed By: #### PT, GLYHGB, CDP #### [facility] [address] [place], [place] [id number] Ortho Tech: Vincent Sy MDUrea nitrogen [Mass/Vol]18 mg/dLNormal6-20Uc HealthComment on above:Performed By: #### PT, GLYHGB, CDP #### [facility] [address] [place], [place] [id number] Ortho Tech: Mike Pereyrasiabilio Metabolic Panel w/ Reflex to MGon 38-11-6294Yylvt gap [Moles/Vol]9 mmol/L9 - 17 mmol/LBON [facility] Calcium [Mass/Vol]9.4 mg/dL8.6 - 10.4 mg/dLBON SECSpinX Technologies MERCCV-Sight HEALTHChloride [Moles/Vol]109 mmol/LHigh98 - 107 mmol/LBON SECOURS [employer] HEALTHCO2 [Moles/Vol] 23 mmol/L20 - 31 mmol/LBON [facility] NovitazCreatinine [Mass/Vol]1.55 mg/dL High0.70 - 1.20 mg/dLBON SECOURS PaySimpleY HEALTHGFR/1.73 sq M.predicted MDRD (S/P/Bld) [Vol rate/Area]59 mL/min/{1.73_m2}Low- PINFBON SECFrensenius V[facility] Care Glucose [Mass/Vol]212 mg/vQMubg18 - 99 mg/dLBON [facility] Interpretation and review of laboratory resultsAbnormalBON SECOURS PaySimpleY HEALTH Potassium [Moles/Vol]4.3 mmol/L3.7 - 5.3 mmol/LBON SEC[facility] [employer] HEALTHSodium [Moles/Vol]141 mmol/L135 - 144 mmol/LBON [facility] [employer] HEALTHUrea nitrogen [Mass/Vol]18 mg/dL6 - 20 mg/dLBON [facility] Catheterization and angiography procedure details panelon [id number] STV CPACSBON [facility] Work Phone: bon [facility] Work Phone: bon [facility] Work Phone: poc Glucose Fingerstickon 02-57-3117Dyeqohq [Mass/Vol] 264 mg/fXTvbk93 - 110 mg/dLBON [facility] HOSPITALInterpretation and review of laboratory resultsAbnormVCU Medical Center Glucose [Mass/Vol]165 mg/xLIkjd60 - 110 mg/dLBON [facility] Interpretation and review of laboratory resultsAbnormBon Secours [facility] BON [facility] HOSPITALGlucose [Mass/Vol]211 mg/vLGopo53 - 110 mg/dLBON [facility] HOSPITALInterpretation and review of laboratory resultsAbnormalJOHN RANDOLPH MEDICAL CENTERGlucose [Mass/Vol]200 mg/hPDdst94 - 110 mg/dLBON [facility] HOSPITALInterpretation and review of laboratory results AbnormalBON LE[facility]ADWOOD REGIONAL HOSPITALAPTWestern [facility] Regional [facility] 99-99-5957tCCP Coag (Bld) [Time]67.4 sHigh23.0-36.5Uc HealthComment on above:Result Comment: NOTE: NEW REFERENCE RANGEPerformed By: #### BMP, MG, CBC, PT, PTT #### [facility] [address] [place] [address] Ortho Tech: Courtney Pereyra Coag (Bld) [Time]67.4 sHighBON [facility] HOSPITALInterpretation and review of laboratory resultsAbnoBlack Hills Surgery CenterBasic Metab w/rfx MGon 11-41-4115Ghmnq gap [Moles/Vol]9 mmol/LNormal9-17Uc HealthComment on above: Performed By: #### BMP, MG, CBC, PT, PTT #### [facility] [place] [address] Ortho Tech: MELLY Pereyraalcium [Mass/Vol]9.6 mg/dLNormal8.6-10.4Uc HealthComment on above:Performed By: #### BMP, MG, CBC, PT, PTT #### [facility] [address] [place] [address] Ortho Tech: Vincent Sy MDChloride [Moles/Vol]102 mmol/XSebdxo02-963FzdeaUc HealthComment on above:Performed By: #### BMP, MG, CBC, PT, PTT #### [facility] [address] [place] [address] Ortho Tech: Vincent Sy MDCO2 [Moles/Vol]23 mmol/XEyqrby28-98ZnihgUc HealthComment on above:Performed By: #### BMP, MG, CBC, PT, PTT #### [facility] [address] [place] [address] Ortho Tech: MELLY Pereyrareatinine [Mass/Vol]1.70 mg/dLHigh0.70-1.20 Uc HealthComment on above:Performed By: #### BMP, MG, CBC, PT, PTT #### [facility] [address] [place] [address] Ortho Tech: iVncent Sy MDGFR/1.73 sq M.predicted among non-blacks MDRD (S/P/Bld) [Vol rate/Area]53 mL/min/{1.73_m2}Low>60Uc HealthComment on above:Result Comment: These results are not [...] #### BMP, MG, CBC, PT, PTT #### [facility] [address] [place] [address] Ortho Tech: Vincent Sy MDGlucose [Mass/Vol]287 mg/vDVzkv40-91MflrsScripps Mercy HospitalComment on above:Performed By: #### BMP, MG, CBC, PT, PTT #### [facility] [employer] [address] [place] [address] Ortho Tech: DOLLY Pereyraotassium [Moles/Vol]3.9 mmol/LNormal3.7-5.3 Uc HealthComment on above:Performed By: #### BMP, MG, CBC, PT, PTT #### [facility] [address] [place] [address] Ortho Tech: LISA Pereyraodium [Moles/Vol]134 mmol/IBtd220-758SlvjdUc HealthComment on above:Performed By: #### BMP, MG, CBC, PT, PTT #### [facility] [address] [place] [address] Ortho Tech: Vincent Sy MDUrea nitrogen [Mass/Vol]25 mg/dLHigh6-20Uc HealthComment on above:Performed By: #### BMP, MG, CBC, PT, PTT #### [facility] [employer] [address] [place] [address] Ortho Tech: Vincent Sy MDBabaptist health la grange Metabolic Panel w/ Reflex to MGon 33-59-6265Yrkic gap [Moles/Vol]9 mmol/L9 - 17 mmol/LB[facility] Calcium [Mass/Vol]9.6 mg/dL8.6 - 10.4 mg/dLBON [facility] HEALTHChloride [Moles/Vol]102 mmol/L98 - 107 mmol/LBON [facility] HEALTHCO2 [Moles/Vol]23 mmol/L20 - 31 mmol/LBON [facility] HOS[facility]ITALCreatinine [Mass/Vol]1.7 mg/dLHigh 0.70 - 1.20 mg/dLBON [facility] HOSPITALGFR/1.73 sq M.predicted MDRD (S/P/Bld) [Vol rate/Area]53 mL/min/{1.73_m2}Low- PINFBON [facility] HOSPITALGlucose [Mass/Vol]287 mg/qRMbit54 - 99 mg/dLBON [facility] HOSPITALInterpretation and review of laboratory resultsAbnormalBON [facility] HOSPITALPotassium [Moles/Vol]3.9 mmol/L3.7 - 5.3 mmol/LBON SECHOLMES COUNTY JOEL POMER[facility] MEM[facility]IAL HOSPITALSodium [Moles/Vol] 134 mmol/PVqr786 - 144 mmol/LBON [facility] HOSPITALUrea nitrogen [Mass/Vol]25 mg/dLHigh6 - 20 mg/dLBON [facility] HOSPITALCBC with Auto Differentialon 82-70-4347Hayjqcco Eos #0.21BON [facility] HOSPITALAbsolute Immature Granulocyte0.05BON [facility]OSPITALAbsolute Lymph #4.07HighBON [facility] L[facility] HOSPITALAbsolute [place] #0.62BON [facility] HOSPITALBasophils (Bld) [#/Vol]0.03 10*3/uLBON [facility] HOSPITALBasophils/100 WBC (Bld)0 %0 - 2 %[facility] CENTEREosinophils/100 WBC (Bld)3 %1 - 4 %[facility] Hematocrit (Bld) [Volume fraction]37.5 %Low40.7 - 50.3 %[facility] Hemoglobin (Bld) [Mass/Vol]12.8 g/dLLow13.0 - 17.0 g/dLBON [facility] Immature granulocytes/100 WBC (Bld)1 %Jtyf7DZTRIVERSIDE BEHAVIORAL HEALTH CENTER Interpretation and review of laboratory resultsAbnormalRIVERSIDE BEHAVIORAL [facility]ALTH CENTER Lymphocytes/100 WBC (Bld)47 %High24 - 43 %[facility]ORTSM[facility]THH (RBC) [Entitic mass]29.6 pg25.2 - 33.5 pgBON DOCTORS HOSPITALHC (RBC) [Mass/Vol] 34.1 g/dL28.4 - 34.8 g/dLBON DOCTORS HOSPITALV (RBC) [Entitic vol]86.8 fL 82.6 - 102.9 fLRIVERSIDE BEHAVIORAL HEALTH CENTERMonocytes/100 WBC (Bld)7 %3 - 12 %[facility]AVIOR[facility] HEALTH CENTERNRBC Automated0.00.0 per 100 WBCRIVERSIDE BEHAVIORAL HEALTH CENTER Platelet distribution width (Bld) [Ratio]13.2 %11.8 - 14.4 %BON [facility] HOSPITALPlatelet mean volume (Bld) [Entitic vol]11.1 fL8.1 - 13.5 fLRIVERSIDE BEHAVIORAL HEALTH CENTERPlatelets (Bld) [#/Vol]189 10*3/uLBON [facility] L[facility] HOSPITALRBC (Bld) [#/Vol]4.32 10*6/uL4.21 - 5.77 m/uLRIVERSIDE BEHAVIORAL HEALTH CENTERSeg Wnqgxbqntel46 %36 - 65 %BON [facility] HOSPITALSegs Absolute3.58BON [facility] HOSPITALWBC (Bld) [#/Vol]8.6 10*3/uLBON [facility] HOSPITALCBC with Diffon 67-80-9239Dty. Basophil0.03 k/uLNormal0.00-0.20Uc HealthComment on above:Performed By: #### BMP, MG, CBC, PT, PTT #### [facility] [address] [place] [address] Ortho Tech: Frankie Pereyra.Imm.Granulocyte0.05 k/uLNormal0.00-0.30Uc HealthComment on above:Performed By: #### BMP, MG, CBC, PT, PTT #### [facility] [address] [place] [address] Ortho Tech: Frankie Pereyra.Neutrophil (Seg)3.58 k/uLNormal1.50-8.10 Uc HealthComment on above:Performed By: #### BMP, MG, CBC, PT, PTT #### [facility] [address] [place] [address] Ortho Tech: Vincent Sy MDBasophils/100 WBC (Bld)0 %Normal0-2MScripps Mercy HospitalComment on above:Performed By: #### BMP, MG, CBC, PT, PTT #### [facility] [address] [place] [address] Ortho Tech: Vincent Sy MDEosinophils (Bld) [#/Vol]0.21 10*3/uLNormal 0.00-0.44Uc HealthComment on above:Performed By: #### BMP, MG, CBC, PT, PTT #### [facility] [address] [place] [address] Ortho Tech: REYNOLD Pereyraosinophils/100 WBC (Bld)3 %Normal1-4Uc HealthComment on above:Performed By: #### BMP, MG, CBC, PT, PTT #### [facility] [employer] [address] [place] [address] Ortho Tech: Vincent Sy MDErythrocyte distribution width (RBC) [Ratio]13.2 %Ddzgcf25.8-14.4Uc HealthComment on above:Performed By: #### BMP, MG, CBC, PT, PTT #### [facility] [employer] [address] [place] [address] Ortho Tech: Vincent Sy MDHematocrit (Bld) [Volume fraction]37.5 %Low 40.7-50.3MScripps Mercy HospitalComment on above:Performed By: #### BMP, MG, CBC, PT, PTT #### [facility] [address] [place] [address] Ortho Tech: Vincent Sy MDHemoglobin (Bld) [Mass/Vol]12.8 g/dLLow13.0-17.0 Uc HealthComment on above:Performed By: #### BMP, MG, CBC, PT, PTT #### [facility] [address] [place] [address] Ortho Tech: Elizabeth Pereyramature granulocytes/100 WBC (Bld)1 %Ikqo3MlwfdUc HealthComment on above:Performed By: #### BMP, MG, CBC, PT, PTT #### [facility] [address] [place] [address] Ortho Tech: Vincent Sy MDLymphocytes (Bld) [#/Vol]4.07 10*3/uLHigh 1.10-3.70Uc HealthComment on above:Performed By: #### BMP, MG, CBC, PT, PTT #### [facility] [employer] [address] [place] [address] Ortho Tech: Linda Pereyramphocytes/100 WBC (Bld)47 %Fpwt24-55GsaylUc HealthComment on above:Performed By: #### BMP, MG, CBC, PT, PTT #### [facility] [employer] [address] [place] [address] Ortho Tech: JODEE PereyraCH (RBC) [Entitic mass]29.6 hiFxbdoj69.2-33.5 Uc HealthComment on above:Performed By: #### BMP, MG, CBC, PT, PTT #### [facility] [employer] [address] [place] [address] Ortho Tech: JENS PereyraC (RBC) [Mass/Vol]34.1 g/oSAwjcri47.4-34.8 Uc HealthComment on above:Performed By: #### BMP, MG, CBC, PT, PTT #### [facility] [employer] [address] [place] [address] Ortho Tech: JODEE PereyraCV (RBC) [Entitic vol]86.8 nWJmncgb51.6-102.9 Uc HealthComment on above:Performed By: #### BMP, MG, CBC, PT, PTT #### [address] [address] Ortho Tech: JODEE Pereyraonocytes (Bld) [#/Vol]0.62 10*3/uLNormal 0.10-1.20Uc HealthComment on above:Performed By: #### BMP, MG, CBC, PT, PTT #### [place] [address] Ortho Tech: JODEE Pereyraonocytes/100 WBC (Bld)7 %Normal3-12Uc HealthComment on above:Performed By: #### BMP, MG, CBC, PT, PTT #### [place] [address] Ortho Tech: Kali Pereyrautrophil (Seg)42 %Wvtkzq79-46GttuwUc HealthComment on above:Performed By: #### BMP, MG, CBC, PT, PTT #### [address] [address] Ortho Tech: Vincent Sy MDNRBC Automated0.0 per 100 WBCNormal0.0Uc HealthComment on above:Performed By: #### BMP, MG, CBC, PT, PTT #### [address] [address] Ortho Tech: DOLLY Pereyralatelet mean volume (Bld) [Entitic vol]11.1 fL Normal8.1-13.5Uc HealthComment on above:Performed By: #### BMP, MG, CBC, PT, PTT #### [facility] [employer] [address] [place] [address] Ortho Tech: Sol Pereyratespaulding hospital cam[facility] ([facility]) [#/Vol]189 10*3/mTImbuzc353-760 Uc HealthComment on above:Performed By: #### BMP, MG, CBC, PT, PTT #### [facility] [address] [place] [address] Ortho Tech: MARSHA PereyraBC ([facility]) [#/Vol]4.32 10*6/uLNormal4.21-5.77 Uc HealthComment on above:Performed By: #### BMP, MG, CBC, PT, PTT #### [facility] [address] [place] [address] Ortho Tech: DE Pereyra ([facility]) [#/Vol]8.6 10*3/uLNormal3.5-11.3MScripps Mercy HospitalComment on above:Performed By: #### BMP, MG, CBC, PT, PTT #### [facility] [address] [place] [address] Ortho Tech: SACHIN Pereyra Complete 2D W Doppler W ColorOrdered By: Jared Nation on 22-56-3069Tyjf ventricular Ejection [id number] CORPORATION OF AMERICAiGlue Work Phone: LVEF MODALITYECHOBON CEDARS-SINAI MEDICAL CENTERiGlue Work Phone: [facility] Wurl Work Phone: ECHO Complete 2D W Doppler W Coloron [id number] LVEF [facility] [employer] Work Phone: poc Glucose Fingerstickon 24-73-5891Hlnojdx [Mass/Vol] 324 mg/nSSzqz10 - 110 mg/dLBON CEDARS-SINAI MEDICAL CENTERiGlueInterpretation and review of laboratory resultsAbnormalHOSPITAL CORPORATION OF AMERICACV-Sight [facility]ENTERiGlue Glucose [Mass/Vol]328 mg/mNAcla04 - 110 mg/dLBON CEDARS-SINAI MEDICAL CENTERUC [facility] Interpretation and review of laboratory resultsAbnormSouthampton Memorial HospitalGlucose [Mass/Vol]266 mg/bNVbyz84 - 110 mg/dLBON [facility] HOSPITALInterpretation and review of laboratory resultsAbnormVCU Medical CenterGlucose [Mass/Vol]253 mg/aKQsxj92 - 110 mg/dLBON [facility] HOSPITALInterpretation and review of laboratory results AbnormalCarilion Clinic [id number] Coag (Bld) [Time]53.5 sHigh20.5-30.5Uc HealthComment on above:Result Comment: IV Heparin Therapy Range: 48.6-77.8Performed By: #### PT, GLYHGB, CDP #### [facility] [employer] [address] [place], [place] [id number] Ortho Tech: Courtney Pereyra Coag (Bld) [Time]53.5 sHigON [facility] L[facility]AIN HOSPITALInterpretation and review of laboratory resultsAbnormMary Washington HealthcareT Coag (Bld) [Time]57.9 sHigh20.5-30.5 Uc HealthComment on above:Result Comment: IV Heparin Therapy Range: 48.6-77.8Performed By: #### BMP, MG, CBC, PT, PTT #### [facility] [address] [place], [place] [id number] Ortho Tech: Vincent Sy MDaPTT Coag (Bld) [Time]40.4 sHigh20.5-30.5Uc HealthComment on above:Result Comment: IV Heparin Therapy Range: 48.6-77.8Performed By: #### PT, GLYHGB, CDP #### [facility] [employer] [address] [place] [address] Ortho Tech: Tim Pereyra Metab w/rfx MGon 09-80-4774Naegd gap [Moles/Vol]11 mmol/LNormal9-17[facility] Medical CenterComment on above: Performed By: #### BMP, MG, CBC, PT, PTT #### [facility] [address] [place] [address] Ortho Tech: MELLY Pereyraalcium [Mass/Vol]10.0 mg/dLNormal8.6-10.4Uc HealthComment on above:Performed By: #### BMP, MG, CBC, PT, PTT #### [facility] [address] [place] [address] Ortho Tech: MELLY Pereyrahloride [Moles/Vol]99 mmol/ELkbgem56-074HmiyqUc HealthComment on above:Performed By: #### BMP, MG, CBC, PT, PTT #### [employer] [address] [place] [address] Ortho Tech: Vincent Sy MDCO2 [Moles/Vol]22 mmol/HZyptzk12-60QrdifUc HealthComment on above:Performed By: #### BMP, MG, CBC, PT, PTT #### [employer] [address] [place] [address] Ortho Tech: MELLY Pereyrareatinine [Mass/Vol]2.04 mg/dLHigh0.70-1.20 Uc HealthComment on above:Performed By: #### BMP, MG, CBC, PT, PTT #### [facility] [address] [place] [address] Ortho Tech: Vincent Sy MDGFR/1.73 sq M.predicted among non-blacks MDRD (S/P/Bld) [Vol rate/Area]42 mL/min/{1.73_m2}Low>60MerNaval Hospital LemooreComment on above:Result Comment: These results are not [...] #### BMP, MG, CBC, PT, PTT #### [facility] [employer] [address] [place] [address] Ortho Tech: Vincent Sy MDGlucose [Mass/Vol]391 mg/mAQplu08-45TxndxScripps Mercy HospitalComment on above:Performed By: #### BMP, MG, CBC, PT, PTT #### [place] [address] Ortho Tech: DOLLY Pereyraotassium [Moles/Vol]4.1 mmol/LNormal3.7-5.3 Uc HealthComment on above:Performed By: #### BMP, MG, CBC, PT, PTT #### [facility] [employer] [address] [place] [address] Ortho Tech: LISA Pereyraodium [Moles/Vol]132 mmol/NMqj348-681ZpwrtUc HealthComment on above:Performed By: #### BMP, MG, CBC, PT, PTT #### [facility] [address] [place] [address] Ortho Tech: Vincent Sy MDUrea nitrogen [Mass/Vol]31 mg/dLHigh6-20Uc HealthComment on above:Performed By: #### BMP, MG, CBC, PT, PTT #### [facility] [address] [place] [address] Ortho Tech: Vincent Sy MDBeta Hydroxybutyrateon 09-49-4360Ufrt Hydroxybutyrate0.21 mmol/LNormal0.02-0.27Uc HealthComment on above:Performed By: #### BMP, MG, CBC, PT, PTT #### [facility] [address] [place] [address] Ortho Tech: Vincent Sy MDBeta-Hydroxybutyrateon 05-24-2022 Beta-Hydroxybutyrate0.21 mmol/L0.02 - 0.27 mmol/LBON SECHOLMES COUNTY JO[facility]OM[facility] HOSPITALCBC with Auto Differentialon [id number] Eos #0.11[facility] Absolute Immature Granulocyte0.00BON SECHOLMES COUNTY JOEL POMERENE MEMORIAL HOSPITALAbsolute Lymph #4.92 HighBON SECHOLMES COUNTY JOEL POMERENE MEMORIAL HOSPITALAbsolute [place] #0.64BON SECHOLM[facility] JO[facility]IAL HOSPITALBasophils (Bld) [#/Vol]0.00 10*3/uLBON SECHOLMES COUNTY JO[facility] HOSPITALBasophils/100 WBC (Bld)0 %0 - 2 %B[facility] HOSPITALEosinophils/100 WBC (Bld)1 %1 - 4 %[facility] HOSPITALHematocrit (Bld) [Volume fraction]39.0 %Low40.7 - 50.3 %[facility] HOSPITALHemoglobin (Bld) [Mass/Vol]13.4 g/dL13.0 - 17.0 g/dLBON [facility] HOSPITALImmature granulocytes/100 WBC (Bld)0 %0[facility] Interpretation and review of laboratory resultsAbnormalBON [facility] Lymphocytes/100 WBC (Bld)46 %High24 - 44 %[facility]CTORS HOSPITALH (RBC) [Entitic mass]29.8 pg25.2 - 33.5 pgBON DOCTORS HOSPITALHC (RBC) [Mass/Vol] 34.4 g/dL28.4 - 34.8 g/dLBON SECAD[facility] COUNTY REGIONAL MEDICAL CENTERV (RBC) [Entitic vol]86.7 fL 82.6 - 102.9 fLBON [facility]ORAIN HOSPITALMonocytes/100 WBC (Bld)6 %1 - 7 %BON SECHOLMES COUNTY JOEL POMERENE MEMORIAL HOSPITALMorphology Aryan (Bld) [Interp]NormalBON [facility] NRBC Automated0.00.0 per 100 WBCBON [facility]ALTH LORAIN HOSPITALPlatelet distribution width (Bld) [Ratio]13.1 %11.8 - 14.4 %B[facility] MERCY HEALTHPlatelet mean volume (Bld) [Entitic vol]11.1 fL8.1 - 13.5 fLINOVA LOUDOUN HOSPITAL HEALTHPlatelets (Bld) [#/Vol]198 10*3/uLBON [facility] HEALTHRBC (Bld) [#/Vol]4.50 10*6/uL 4.21 - 5.77 m/uLRIVERSIDE BEHAVIORAL HEALTH CENTERSeg Feypdqzrghs80 %36 - 66 %BON [facility] L[facility] HOSPITALSegs Absolute5.03BON [facility] LOR[facility] HOSPITALWBC (Bld) [#/Vol]10.7 10*3/uLBON [facility]KY [facility] AVONDALEOURS PROMEDICA FLOWER HOSPITALBON [facility] HOSPITALCBC with Diffon 60-40-4637Eoy. Basophil0.00 k/uLNormal0.0-0.2MScripps [facility] Comment on above:Performed By: #### PTT #### [facility] [address] [place] [address] Ortho Tech: Frankie Pereyra.Imm.Granulocyte0.00 k/uLNormal0.00-0.30Uc HealthComment on above:Performed By: #### PTT #### [facility] [address] [place] [address] Ortho Tech: Frankie Pereyra.Neutrophil (Seg)5.03 k/uLNormal1.8-7.7Uc HealthComment on above:Performed By: #### PTT #### [place] [address] Ortho Tech: Vincent Sy MDBasophils/100 WBC (Bld)0 %Normal0-2MScripps Mercy HospitalComment on above:Performed By: #### PTT #### [facility] [address] [place] [address] Ortho Tech: Vincent Sy MDEosinophils (Bld) [#/Vol]0.11 10*3/uLNormal 0.0-0.4Uc HealthComment on above:Performed By: #### PTT #### [address] [address] Ortho Tech: Vincent Sy MDEosinophils/100 WBC (Bld)1 %Normal1-4[facility] Joseph'S HospitalComment on above:Performed By: #### PTT #### [address] [address] Ortho Tech: Vincent Sy MDImmature granulocytes/100 WBC (Bld)0 %Normal0 Uc HealthComment on above:Performed By: #### PTT #### [address] [address] Ortho Tech: Vincent Sy MDLymphocytes (Bld) [#/Vol]4.92 10*3/uLHigh1.0-4.8 Uc HealthComment on above:Performed By: #### PTT #### [address] [address] Ortho Tech: Linda Pereyramphocytes/100 WBC (Bld)46 %Wjrf76-64Fzeea [address] Joseph'S HospitalComment on above:Performed By: #### PTT #### [address] [address] Ortho Tech: JODEE Pereyraonocytes (Bld) [#/Vol]0.64 10*3/uLNormal0.1-0.8 Uc HealthComment on above:Performed By: #### PTT #### [address] [address] Ortho Tech: JODEE Pereyraonocytes/100 WBC (Bld)6 %Normal1-7[facility] Joseph'S HospitalComment on above:Performed By: #### PTT #### [address] [address] Ortho Tech: JODEE Pereyraorphology Aryan (Bld) [Interp]NormalNormalUc HealthComment on above:Performed By: #### PTT #### [address] [address] Ortho Tech: Vincent Sy MDNeutrophil (Seg)47 %Efjxsl61-36ZmoifUc HealthComment on above:Performed By: #### PTT #### [address] [address] Ortho Tech: Vincent Sy MDErythrocyte distribution width (RBC) [Ratio]13.1 %Qwjwql16.8-14.4Uc HealthComment on above:Performed By: #### PTT #### [address] [address] Ortho Tech: Vincent Sy MDHematocrit (Bld) [Volume fraction]39.0 %Low 40.7-50.3[facility] Joseph'S HospitalComment on above:Performed By: #### PTT #### [address] [address] Ortho Tech: Vincent Sy MDHemoglobin (Bld) [Mass/Vol]13.4 g/dLNormal 13.0-17.0Uc HealthComment on above:Performed By: #### PTT #### [address] [address] Ortho Tech: JODEE PereyraCH (RBC) [Entitic mass]29.8 jzWrvbba20.2-33.5 Uc HealthComment on above:Performed By: #### PTT #### [address] [address] Ortho Tech: JODEE PereyraCHC (RBC) [Mass/Vol]34.4 g/wPMhjwus26.4-34.8 [facility]c HealthComment on above:Performed By: #### PTT #### [address] [address] Ortho Tech: JODEE PereyraCV (RBC) [Entitic vol]86.7 nIFnbinq73.6-102.9 Uc HealthComment on above:Performed By: #### PTT #### [place] [address] Ortho Tech: BRAYDON Pereyra Automated0.0 per 100 WBCNormal0.0Uc HealthComment on above:Performed By: #### PTT #### [address] [address] Ortho Tech: Sol Pereyratecarlton mean volume (Bld) [Entitic vol]11.1 fL Normal8.1-13.5[facility] HealthComment on above:Performed By: #### PTT #### [address] [address] Ortho Tech: DOLLY Pereyralatelets (Bld) [#/Vol]198 10*3/bZKkgsov700-389 [facility] HealthComment on above:Performed By: #### PTT #### [address] [address] Ortho Tech: MARSHA PereyraBC (Bld) [#/Vol]4.50 10*6/uLNormal4.21-5.77 [facility] HealthComment on above:Performed By: #### PTT #### [address] [address] Ortho Tech: RADHA PereyraBC (Bld) [#/Vol]10.7 10*3/uLNormal3.5-11.3MScripps Mercy HospitalComment on above:Performed By: #### PTT #### [facility] [address] [place] [address] Ortho Tech: PETE Pereyra 12 LeadOrdered By: Bc Wilks on 05-24-2022 Atrial [id number] [facility] Work Phone: [phone] Mvxs65cnfoylyGMN [facility] Work Phone: [phone]-R [id number] msB[facility] Work Phone: [phone]-T Njaymykd248 [facility] Work Phone: [phone] Wmovkajy68 [facility] Work Phone: [phone] Calculation (Bazett)429 [facility] Work Phone: [phone] Kggc99ofpexinBOD [facility] Work Phone: [phone] Negt06rsgtlawDPX [facility] Work Phone: [phone] [id number] [facility] Work Phone: [phone] Work Phone: EKG 12 [place] [id number] STV MUSEBON [facility] Work Phone: eKG 12 [address] [id number] [id number] [facility] Work Phone: P [id number] [facility] Work Phone: P-R Tznctxnd557 [facility] Work Phone: Q-T Ngfxlwsa176 [facility] Work Phone: QRS Jgcjilaf68 [facility] Work Phone: QTc Calculation (Bazett)427 [facility] Work Phone: r [id number] [facility] Work Phone: T Tigo63zgeoviqAZKRiverside Health System Work Phone: Ventricular Xaxb50JTTSDY [facility] Work Phone: MHPN STV [facility]USER[facility] Work Phone: bON [facility] Work Phone: lDL Chol, Directon [id number] Chol, Hluuho924 mg/dL High<100[facility] St. Joseph'S HospitalComment on above:Performed By: #### PTT #### [facility] [address] [place] [address] [phone] Ortho Tech: BERNICE Pereyra Cholesterol, Directon 89-53-6541Ewfzvfbdvhk in LDL [Mass/Vol]230 mg/dLHighNINF - 100 mg/dLBON [facility] Interpretation and review of laboratory resultsAbnoSentara Leigh Hospital Lipid Profileon 01-10-4094Zpnnldxpwcm,LDLNormal0-130MerNaval Hospital LemooreComment on above:Result Comment: Calculation not valid for Triglyceride value greater than 400 mg/dL. Direct LDL reflexed LDL Guidelines: <100 Desirable 100-129 Near to/above Desirable 130-159 Borderline >159 Undesirable Direct (measured) LDL and calculated LDL are not interchangeable tests.Performed By: #### BMP, MG, CBC, PT, PTT #### RUN [address] [place] [address] [phone] Ortho Tech: MELLY Pereyraholesterol [Mass/Vol]330 mg/dLHigh<200MerNaval Hospital LemooreComment on above:Result Comment: Cholesterol Guidelines: <200 Desirable 200-240 Borderline >240 UndesirablePerformed By: #### BMP, MG, CBC, PT, PTT #### [facility] [address] [place], [place] [phone] Ortho Tech: MELLY Pereyraholesterol in HDL [Mass/Vol]40 mg/dLLow>40MerNaval Hospital LemooreComment on above:Result Comment: HDL Guidelines: <40 Undesirable 40-59 Borderline >59 DesirablePerformed By: #### BMP, MG, CBC, PT, PTT #### [facility] [address] [place] [address] 0[address] Ortho Tech: MELLY Pereyraholesterol.total/Cholesterol in HDL [Mass ratio]8.3 {ratio}High<5Mer[facility] St. Joseph'S HospitalComment on above: Performed By: #### BMP, MG, CBC, PT, PTT #### [facility] [address] [place] [address] [phone] Ortho Tech: Vincent Sy MDTriglyceride [Mass/Vol]577 mg/dLHigh<150MerNaval Hospital LemooreComment on above:Result Comment: Triglyceride Guidelines: <150 Desirable 150-199 Borderline 200-499 High >499 Very high Based on AHA Guidelines for fasting triglyceride, December 2011.Performed By: #### BMP, MG, CBC, PT, PTT #### [facility] [address] [place] [address] [phone] Ortho Tech: Greg Pereyragnesiumon 57-07-7387Xxpqcqfmr [Mass/Vol]1.8 mg/dLNormal1.6-2.6[facility] St. Joseph'S HospitalComment on above:Performed By: #### BMP, MG, CBC, PT, PTT #### [facility] [address] [place] [address] [phone] Ortho Tech: Vincent Sy MDNo Panel Informationon 83-70-3952GOU [facility] Glucose Fingerstickon 04-50-6321Oxkmitv [Mass/Vol]293 mg/dLHigh 75 - 110 mg/dLBON [facility] HOSPITALInterpretation and review of laboratory resultsAbnormalJOHN RANDOLPH MEDICAL CENTERGlucose [Mass/Vol]364 mg/yQJywk99 - 110 mg/dLBON [facility] HOSPITALInterpretation and review of laboratory resultsAbnormalJOHN RANDOLPH MEDICAL CENTERGlucose [Mass/Vol]417 mg/dLCritically high75 - 110 mg/dLBON [facility] HOSPITALInterpretation and review of laboratory resultsAbnormalJOHN RANDOLPH MEDICAL CENTERProtein,Tot,[place] Uron 28-25-3660Buymgnpjiy [Mass/Vol]123.3 mg/dFFbymyf01.0-259.0Uc HealthComment on above:Performed By: #### PT, GLYHGB, CDP #### [facility] [address] [place] [address] Ortho Tech: Morgan Pereyra Prot. Conc.76 mg/dLNoKettering Health MiamisburgComment on above:Result Comment: No normal range established. Performed By: #### PT, GLYHGB, CDP #### [facility] [address] [place] [address] 21071 Ortho Tech: Vincent Sy MDTP/Cre Ratio0.00Jwzb0.00-0.20Uc HealthComment on above:Performed By: #### PT, GLYHGB, CDP #### [facility] [address] [place] [address] 86903 Ortho Tech: ISIDORO Pereyra w/Reflex Cultureon 25-59-2559Hsbmnsyaq, SemiQt,UrNegativeNormalNEGUc HealthComment on above: Performed By: #### BMP, MG, CBC, PT, PTT #### [facility] [address] [place] [address] 24347 Ortho Tech: Claudio Pereyra, UrineNegativeNormalNEGUc HealthComment on above:Performed By: #### BMP, MG, CBC, PT, PTT #### [facility] [address] [place] [address] 26708 Ortho Tech: Eris Pereyra (U)ClearNormalCLEARUc HealthComment on above:Performed By: #### BMP, MG, CBC, PT, PTT #### [facility] [address] [place] [address] 0[address]57 Ortho Tech: MELLY Pereyraolor (U)YellowNormalYELMerNaval Hospital LemooreComment on above:Performed By: #### BMP, MG, CBC, PT, PTT #### [facility] [address] [place] [address] 03132 Ortho Tech: Vincent Sy MDGlucose Ql (U)3+AbnormalNEGUc HealthComment on above:Performed By: #### BMP, MG, CBC, PT, PTT #### [facility] [address] [place] [address] 52452 Ortho Tech: Vincent Sy MDKetones Ql (U)NegativeNormalNEGUc HealthComment on above:Performed By: #### BMP, MG, CBC, PT, PTT #### [facility] [address] [place] [address] 24157 Ortho Tech: Vincent Sy MDLeukocyte esterase Test strip Ql (U)Negative NormalNEGUc HealthComment on above:Performed By: #### BMP, MG, CBC, PT, PTT #### [facility] [address] [place] [address] 44335 Ortho Tech: Brandy Pereyratrite,UrNegativeNormalNEGUc HealthComment on above:Performed By: #### BMP, MG, CBC, PT, PTT #### [facility] [address] [place] [address] 78986 Ortho Tech: Vincent Sy [facility],Ur5.7Mmaqle4.0-8.0MerNaval Hospital LemooreComment on above:Performed By: #### BMP, MG, CBC, PT, PTT #### [facility] [address] [place] [address] [phone] Ortho Tech: DOLLY Pereyrarotein Ql (U)2+AbnormalNEGUc HealthComment on above:Performed By: #### BMP, MG, CBC, PT, PTT #### [facility] [address] [place] [address] Ortho Tech: LISA Pereyrapec. [place],Ur1.327Oltxwy2.005-1.030Uc HealthComment on above:Performed By: #### BMP, MG, CBC, PT, PTT #### [facility] [address] [place] [address] Ortho Tech: Vincent Sy MDUrobilinogen,UrNormalNormalNORMUc HealthComment on above:Performed By: #### BMP, MG, CBC, PT, PTT #### [facility] [address] [place] [address] Ortho Tech: Vincent Sy MDUS RETROPERITONEAL COMPLETEon 21-40-0963UA RETROPERITONEAL COMPLETEEXAMINATION: RETROPERITONEAL ULTRASOUND OF THE KIDNEYS [...] Signed by: Sony Whitt MD 05/24/22 Final resultNormalUc HealthUrinalysis,Microon 05-24-2022 Casts2 TO 5 HYALINENormal0-8Uc HealthComment on above: Result Comment: Reference range defined for non-centrifuged specimen.Performed By: #### BMP, MG, CBC, PT, PTT #### [facility] [address] [place] [address] 25268 Ortho Tech: Vincent Sy MDEpithelial cells LM Ql (Urine sed)0 TO 2Normal 0-5Uc HealthComment on above:Performed By: #### BMP, MG, CBC, PT, PTT #### [facility] [address] [place] [address] 55309 Ortho Tech: Vincent Sy MDUrine RBC's0 TO 9Jaznbn9-2FucymUc HealthComment on above:Result Comment: Reference range defined for non- centrifuged specimen.Performed By: #### BMP, MG, CBC, PT, PTT #### [facility] [address] [place] [address] Ortho Tech: Carlos Enrique Pereyra WBC's2 TO 8Adagow7-7DbsktUc HealthComment on above:Performed By: #### BMP, MG, CBC, PT, PTT #### [facility] [address] [place] [address] 14123 Ortho Tech: Tali Pereyra 30-98-3462eAWF Coag (Bld) [Time]40.9 s High20.5-30.5Uc HealthComment on above:Result Comment: IV Heparin Therapy Range: 48.6-77.8Performed By: #### BMP, MG, CBC, PT, PTT #### [facility] [address] [place] [address] 41739 Ortho Tech: Vincent Sy MDBasic Metab w/rfx MGon 76-34-0181Zandlfw [Mass/Vol]416 mg/dLCritically eifm90-80NnaveSt. John's Hospital CamarilloComment on above:Performed By: #### BMP, MG, CBC, PT, PTT #### [facility] [address] [place] [address] 82737 Ortho Tech: Katelin Pereyra gap [Moles/Vol]12 mmol/LNormal9-17Uc HealthComment on above:Performed By: #### BMP, MG, CBC, PT, PTT #### [facility] [address] [place] [address] 38356 Ortho Tech: MELLY Pereyraalcium [Mass/Vol]10.6 mg/dLHigh8.6-10.4Uc HealthComment on above:Performed By: #### BMP, MG, CBC, PT, PTT #### [facility] [address] [place] [address] 76264 Ortho Tech: MELLY Pereyrahloride [Moles/Vol]97 mmol/GScp15-902SdbcdUc HealthComment on above:Performed By: #### BMP, MG, CBC, PT, PTT #### [facility] [address] [place] [address] 27971 Ortho Tech: Vincent Sy MDCO2 [Moles/Vol]23 mmol/SKpbohg91-76NumpkUc HealthComment on above:Performed By: #### BMP, MG, CBC, PT, PTT #### [facility] [address] [place] [address] 67017 Ortho Tech: MELLY Pereyrareatinine [Mass/Vol]2.08 mg/dLHigh0.70-1.20 Uc HealthComment on above:Performed By: #### BMP, MG, CBC, PT, PTT #### [facility] [address] [place] [address] 17504 Ortho Tech: Vincent Sy MDGFR/1.73 sq M.predicted among non-blacks MDRD (S/P/Bld) [Vol rate/Area]41 mL/min/{1.73_m2}Low>60Uc HealthComment on above:Result Comment: These results are not [...] #### BMP, MG, CBC, PT, PTT #### [facility] [address] [place] [address] 96979 Ortho Tech: DOLLY Pereyraotassium [Moles/Vol]4.3 mmol/LNormal3.7-5.3 Uc HealthComment on above:Performed By: #### BMP, MG, CBC, PT, PTT #### [facility] [address] [place] [address] Ortho Tech: LISA Pereyraodium [Moles/Vol]132 mmol/KKta818-706MtopcUc HealthComment on above:Performed By: #### BMP, MG, CBC, PT, PTT #### [facility] [address] [place] [address] Ortho Tech: Vincent Sy MDUrea nitrogen [Mass/Vol]34 mg/dLHigh6-20Uc HealthComment on above:Performed By: #### BMP, MG, CBC, PT, PTT #### [facility] [address] [place] [address] Ortho Tech: MELLY PereyraARDIAC ALECIA 3-6on 67-15-5102AG [Catalytic activity/Vol]155 U/SXnfaic73-456Sbw [facility] CenterComment on above:Performed By: #### DDIM #### [facility] [address] [address] [address] Sushila Castellon.MB [Mass/Vol]2.94 ng/mLNormal<=3.60The [facility] Comment on above:Performed By: #### DDIM #### [facility] [address] [place], [place] [address] Dr. Sushila DongHSTROP718.1 pg/mLCritically high4.0-76.1[facility] Comment on above:Result Comment: CUT-OFF POINTS HAVE BEEN ESTABLISHED BASED ON THE FOURTH UNIVERSAL DEFINITIONS OF MYOCARDIAL INFARCTION. THE UPPER REFERENCE LIMIT (URL) OF TROPONIN, DEFINED THE 99TH PERCENTILE OF cTnI DISTRIBUTION IN A REFERENCE POPULATION, HAS BEEN CONFIRMED THE DECISION THRESHOLD FOR NC DIAGNOSIS.Performed By: #### DDIM #### [facility] [address] [address] [address] Sushila Castellon [Catalytic activity/Vol]154 U/NDxjplo80-662QdlChildren'S Hospital Of ColumbusComment on above:Performed By: #### CMREP #### [facility] [address] [address] [address] Sushila Castellon.MB [Mass/Vol]2.46 ng/mLNormal<=3.60[facility] Comment on above:Performed By: #### CMREP #### [facility] [address] [place] [address] Dr. Sushila Titus445.9 pg/mLCritically high4.0-76.1[facility] Comment on above:Result Comment: CUT-OFF POINTS HAVE BEEN ESTABLISHED BASED ON THE FOURTH UNIVERSAL DEFINITIONS OF MYOCARDIAL INFARCTION. THE UPPER REFERENCE LIMIT (URL) OF TROPONIN, DEFINED THE 99TH PERCENTILE OF cTnI DISTRIBUTION IN A REFERENCE POPULATION, HAS BEEN CONFIRMED THE DECISION THRESHOLD FOR NC DIAGNOSIS.Performed By: #### CMREP #### [facility] [address] [place] [address] Dr. Sushila ALSTON ADMITon 59-42-9755SF [Catalytic activity/Vol]145 U/L Khxuum83-765EldChildren'S Hospital Of ColumbusComment on above:Performed By: #### BMP CMADM #### [facility] [address] [address] [address] Sushila Castellon.MB [Mass/Vol]2.14 ng/mLNormal<=3.60[facility] Comment on above:Performed By: #### BMP, CMADM #### [facility] [address] [address] [address] Sushila Titus84.8 pg/mLCritically high4.0-76.1[facility] Comment on above:Result Comment: CUT-OFF POINTS HAVE BEEN ESTABLISHED BASED ON THE FOURTH UNIVERSAL DEFINITIONS OF MYOCARDIAL INFARCTION. THE UPPER REFERENCE LIMIT (URL) OF TROPONIN, DEFINED THE 99TH PERCENTILE OF cTnI DISTRIBUTION IN A REFERENCE POPULATION, HAS BEEN CONFIRMED THE DECISION THRESHOLD FOR NC DIAGNOSIS.Performed By: #### BMP, CMADM #### [facility] [address] [place] [address] Dr. Sushila EmmanuelO214 ng/mLCritically vbjh65-55Brh [facility] CenterComment on above:Performed By: #### BMP, CMADM #### [facility] [address] [place] [address] Dr. Sushila Costello AUTO DIFFon 10-26-1161SALV #0.0 103/ulNormal0.0-0.1[facility] ColumbusComment on above:Performed By: #### CBC #### [facility] [address] [place] [address] Dr. Sushila DongBasophils/100 WBC (Bld)0.4 %Normal0.2-2.0[facility] Comment on above:Performed By: #### CBC #### [facility] [address] [place] [address] Dr. Sushila Mays #0.1 103/ulNormal0.0-0.7The [facility] Medical CenterComment on above: Performed By: #### CBC #### [facility] [address] [place] [address] Dr. Sushila Rileyosinophils/100 WBC (Bld)1.6 %Normal0.9-7.0[facility] Comment on above:Performed By: #### CBC #### [facility] [address] [place] [address] Dr. Sushila Rileyrythrocyte distribution width (RBC) [Ratio]12.7 %Juclyk45.0-15.0 [facility] ColumbusComment on above:Performed By: #### CBC #### [facility] [address] [place] [address] Dr. Sushila DongHematocrit (Bld) [Volume fraction]43.8 %Djgnai85.0-54.0The [facility] CenterComment on above:Performed By: #### CBC #### [facility] [address] [place] [address] Dr. Sushila DongHemoglobin (Bld) [Mass/Vol]15.0 g/vPQowubw49.0-18.0The [facility] CenterComment on above:Performed By: #### CBC #### [facility] [address] [place] [address] Dr. Sushila Munroe #0.04 10e3/ulCritically high0.00-0.03The [facility] Comment on above:Performed By: #### CBC #### [facility] [address] [place] [address] Dr. Sushila Munroe %0.4 %Normal0.0-0.5The [facility] Medical CenterComment on above: Performed By: #### CBC #### [facility] [address] [place] [address] Dr. Sushila Martinez #2.4 103/ulNormal1.2-3.8The [facility] Medical CenterComment on above:Performed By: #### CBC #### [facility] [address] [place] [address] Dr. Sushila Virkhocytes/100 WBC (Bld)26.5 %Kepusp51.5-60.0The [facility] CenterComment on above:Performed By: #### CBC #### [facility] [address] [place] [address] Dr. Sushila PorterUAL DIFF REQNONormalThe [facility] CenterComment on above: Performed By: #### CBC #### [facility] [address] [place] [address] Dr. Sushila Farias (RBC) [Entitic mass]29.6 emEwcwgk44.9-34.0The [facility] CenterComment on above:Performed By: #### CBC #### [facility] [address] [place] [address] Dr. Sushila Campos (RBC) [Mass/Vol]34.2 g/iDPoeval14.9-35.2The [facility] CenterComment on above:Performed By: #### CBC #### [facility] [address] [place] [address] Dr. Sushila CamposV (RBC) [Entitic vol]86.6 lGHoxuon64.0-94.0The [facility] CenterComment on above:Performed By: #### CBC #### [facility] [address] [place] [address] Dr. Sushila Gonzalez #0.8 103/ulNormal0.3-0.8The [facility] CenterComment on above:Performed By: #### CBC #### [facility] [address] [place] [address] Dr. Sushila Ramiresocytes/100 WBC (Bld)9.4 %Normal1.7-12.0The [facility] Comment on above:Performed By: #### CBC #### [facility] [address] [place] [address] Dr. Sushila Smiley #5.5 103/ulNormal1.4-6.5The [facility] CenterComment on above:Performed By: #### CBC #### [facility] [address] [place] [address] Dr. Sushila Shipleyutrophils/100 WBC (Bld)61.7 %Uwffdr48.0-75.0The [facility] CenterComment on above:Performed By: #### CBC #### [facility] [address] [place] [address] Dr. Sushila Warnerlet mean volume (Bld) [Entitic vol]11.0 fLNormal9.5-13.5The [facility] CenterComment on above:Performed By: #### CBC #### [facility] [address] [place] [address] Dr. Sushila RaviT236 103/szAagfjj831-297Hpw [facility] CenterComment on above: Performed By: #### CBC #### [facility] [address] [place] [address] Dr. Sushila BlasC5.06 106/ulNormal4.70-6.10The [facility] Medical CenterComment on above:Performed By: #### CBC #### [facility] [id number] Sushila DongWBC8.9 103/ulNormal4.0-11.0[facility] Hospital Of ColumbusComment on above: Performed By: #### CBC #### [facility] [address] [address] [address] Sushila DongT.J. [facility] with Diffon 03-11-4566Iek. Basophil0.06 k/uLNormal0.00-0.20 Uc HealthComment on above:Performed By: #### BMP, MG, CBC, PT, PTT #### [place] [address] Ortho Tech: Frankie Pereyra.Imm.Granulocyte0.04 k/uLNormal0.00-0.30Uc HealthComment on above:Performed By: #### BMP, MG, CBC, PT, PTT #### [place] [address] Ortho Tech: Frnakie Pereyra.Neutrophil (Seg)5.16 k/uLNormal1.50-8.10 Uc HealthComment on above:Performed By: #### BMP, MG, CBC, PT, PTT #### [facility] [address] [place] [address] Ortho Tech: Vincent Sy MDBasophils/100 WBC (Bld)1 %Normal0-2MercSt. John's Hospital CamarilloComment on above:Performed By: #### BMP, MG, CBC, PT, PTT #### [facility] [address] [place] [address] Ortho Tech: Vincent Sy MDEosinophils (Bld) [#/Vol]0.21 10*3/uLNormal 0.00-0.44Uc HealthComment on above:Performed By: #### BMP, MG, CBC, PT, PTT #### [facility] [address] [place] [address] Ortho Tech: Vincent Sy MDEosinophils/100 WBC (Bld)2 %Normal1-4Uc HealthComment on above:Performed By: #### BMP, MG, CBC, PT, PTT #### [facility] [address] [place] [address] Ortho Tech: Vincent Sy MDErythrocyte distribution width (RBC) [Ratio]12.4 %Debalr00.8-14.4Uc HealthComment on above:Performed By: #### BMP, MG, CBC, PT, PTT #### [place] [address] Ortho Tech: Vincent Sy MDHematocrit (Bld) [Volume fraction]43.4 %Normal 40.7-50.3MScripps Mercy HospitalComment on above:Performed By: #### BMP, MG, CBC, PT, PTT #### [facility] [address] [place] [address] Ortho Tech: Vincent Sy MDHemoglobin (Bld) [Mass/Vol]15.5 g/dLNormal 13.0-17.0Uc HealthComment on above:Performed By: #### BMP, MG, CBC, PT, PTT #### [facility] [address] [place] [address] Ortho Tech: Vincent Sy MDImmature granulocytes/100 WBC (Bld)0 %Normal0 Uc HealthComment on above:Performed By: #### BMP, MG, CBC, PT, PTT #### [facility] [address] [place] [address] Ortho Tech: Vincent Sy MDLymphocytes (Bld) [#/Vol]4.44 10*3/uLHigh 1.10-3.70Uc HealthComment on above:Performed By: #### BMP, MG, CBC, PT, PTT #### [facility] [address] [place] [address] Ortho Tech: Wes Pereyrahocytes/100 WBC (Bld)41 %Xkxaiv43-22PhfzrUc HealthComment on above:Performed By: #### BMP, MG, CBC, PT, PTT #### [facility] [address] [place] [address] Ortho Tech: JODEE PereyraCH (RBC) [Entitic mass]29.8 ydZbiklb58.2-33.5 Uc HealthComment on above:Performed By: #### BMP, MG, CBC, PT, PTT #### [facility] [address] [place] [address] Ortho Tech: JODEE PereyraCHC (RBC) [Mass/Vol]35.7 g/fHCpun29.4-34.8Uc HealthComment on above:Performed By: #### BMP, MG, CBC, PT, PTT #### [facility] [address] [place] [address] Ortho Tech: JODEE PereyraCV (RBC) [Entitic vol]83.5 aDUrszfl06.6-102.9 Uc HealthComment on above:Performed By: #### BMP, MG, CBC, PT, PTT #### [facility] [address] [place] [address] Ortho Tech: JODEE Pereyraonocytes (Bld) [#/Vol]1.02 10*3/uLNormal 0.10-1.20Uc HealthComment on above:Performed By: #### BMP, MG, CBC, PT, PTT #### [facility] [address] [place] [address]678 Ortho Tech: JODEE Pereyraonocytes/100 WBC (Bld)9 %Normal3-12Uc HealthComment on above:Performed By: #### BMP, MG, CBC, PT, PTT #### [facility] [address] [place] [address] Ortho Tech: Starr Pereyraophil (Seg)47 %Izmnqv84-26BdymfUc HealthComment on above:Performed By: #### BMP, MG, CBC, PT, PTT #### [facility] [address] [place] [address] Ortho Tech: Vincent Sy MDNRBC Automated0.0 per 100 WBCNormal0.0Uc HealthComment on above:Performed By: #### BMP, MG, CBC, PT, PTT #### [facility] [address] [place] [address] Ortho Tech: Sol Pereyratecarlton mean volume (Bld) [Entitic vol]11.4 fL Normal8.1-13.5Uc HealthComment on above:Performed By: #### BMP, MG, CBC, PT, PTT #### [facility] [address] [place] [address] Ortho Tech: DOLLY Pereyralatelets (Bld) [#/Vol]248 10*3/lWUyvkao020-339 Uc HealthComment on above:Performed By: #### BMP, MG, CBC, PT, PTT #### [facility] [address] [place] [address] Ortho Tech: Vincent Sy MDRBC (Bld) [#/Vol]5.20 10*6/uLNormal4.21-5.77 Uc HealthComment on above:Performed By: #### BMP, MG, CBC, PT, PTT #### [facility] [address] [place], [place] [address] Ortho Tech: DE Pereyra (Bld) [#/Vol]10.9 10*3/uLNormal3.5-11.3[facility] Joseph'S HospitalComment on above:Performed By: #### BMP, MG, CBC, PT, PTT #### [facility] [address] [place] [address] Ortho Tech: MELLY Pereyraovidarby-19 PCR ([facility])on 50-43-4359LRGI-CoV-2 (COVID-19) RNA VIK+probe Ql (Unsp spec)Not detectedNormalNOT DETECTEDThe [facility] CenterComment on above:Result Comment: When diagnostic testing is [...] for this test is supported by the [place] of Health and Human Service's declaration that [...] longer be used).Performed By: #### DDIM #### [facility] [address] [place] [address] Dr. Sushila Miner 82-74-8516M-DIMER0.40 mg/L FEUNormal<=0.59The [facility] Medical CenterComment on above:Performed By: #### DDIM #### [facility] [address] [address] [address] Sushila Conn COMMENTSSEE [facility] on above:Result Comment: Increases in D-Dimer concentration [...] and generalized hospitalization.Performed By: #### DDIM #### [facility] [address] [place] [address] Dr. Sushila Curry URINE PROFILEon 86-70-7592Mpwknivgp Ql (U)NegativeNormal NEGATIVEChildren'S Hospital Of ColumbusComment on above:Performed By: #### LAI, ERUR #### [facility] [address] [place] [address] Dr. Sushila DongClarity (U)CLEARNormalCLEARChildren'S Hospital Of ColumbusComment on above: Performed By: #### LAI, ERUR #### [facility] [address] [place] [address] Dr. Sushila Salmon (U)LT. YELLOWNormalYELLOWChildren'S Hospital Of ColumbusComment on above:Performed By: #### LAI, ERUR #### [facility] [address] [place] [address] Dr. Sushila GivensROQUE micrscopic examination will be performed if indicated. NormalThe [facility]heastern Medical CenterComment on above:Performed By: #### UMAKHILRO, ERUR #### [facility] [address] [place] [address] Dr. Sushila DongGlucose Ql (U)>1000AbnormalNEGATIVEChildren'S Hospital Of ColumbusComment on above:Performed By: #### BLAYNERO, ERUR #### [facility] [address] [place] [address] Dr. Sushila DongHemoglobin Ql (U)TRACE-LYSEDAbnormalNEGATIVEChildren'S Hospital Of Columbus Comment on above:Performed By: #### UMICRO, ERUR #### [facility] [address] [address] [address] Sushila Clark Ql (U)NegativeNormalNEGATIVEThe [facility] CenterComment on above:Performed By: #### LAI ERUR #### [facility] [address] [address] [address] Sushila DongLEUKOCYTESNegativeNormalNEGATIVEThe [facility] CenterComment on above:Performed By: #### LAI ERUR #### [facility] [address] [place] [address] Dr. Sushila Callestrcharlie Ql (U)NegativeNormalNEGATIVEThe [facility] CenterComment on above:Performed By: #### LAI ERUR #### [facility] [address] [place] [address] Dr. Sushila DongpH (U)6.0 [pH]Normal5-9The [facility] CenterComment on above: Performed By: #### LAI ERUR #### [facility] [address] [place] [address] Dr. Sushila DongProtein (U) [Mass/Vol]30 mg/dLAbnormalNEGATIVE/ TRACEThe [facility] CenterComment on above:Performed By: #### LAI ERUR #### [facility] [address] [place] [address] Dr. Sushila DongSPEC GRAVITY<=1.443Dshsqmsx9.005-<=1.025The [facility] Comment on above:Performed By: #### LAI ERUR #### [facility] [address] [place] [address] Dr. Sushila DongUR MICRO INDINDICATEDNormalThe [facility] CenterComment on above: Performed By: #### LAI ERUR #### [facility] [address] [place] [address] Dr. Sushila Osbornebilino Qn (U)0.2 {Ellyn'U}/dLNormal0.2 - 1.0The [facility] CenterComment on above:Performed By: #### LAI, ERUR #### [facility] [address] [place], [place] [address] Dr. Sushila DongGLUCOSE BLOODon 32-56-4079Eqxkzmp [Mass/Vol]586 mg/dLCritically vwtg53-184VhbChildren'S Hospital Of ColumbusComment on above:Performed By: #### DDIM #### [facility] [address] [address] [address] Sushila DongGlucose [Mass/Vol]713 mg/dLCritically taoy29-844BeuChildren'S Hospital Of ColumbusComment on above:Performed By: #### GLUC #### [facility] [address] [address] [address] Sushila DongHemoglobin A1Con 67-04-6854Rqhoasz [Mass/Vol]243 mg/dLNormalUc HealthComment on above:Result Comment: The ADA and AACC recommend providing the estimated average glucose result to permit better patient understanding of their HBA1c result.Performed By: #### BMP, MG, CBC, PT, PTT #### [address] [place], [place] [id number] Ortho Tech: Vincent Sy MDHbA1c (Bld) [Mass fraction]10.1 %High4.0-6.0 Uc HealthComment on above:Performed By: #### BMP, MG, CBC, PT, PTT #### [address] [place] [address] Ortho Tech: Vincent Sy MDLipaseon 52-47-1777Rlpvig [Catalytic activity/Vol]59 U/BPnrgsd46-16AckvhUc HealthComment on above: Performed By: #### BMP, MG, CBC, PT, PTT #### [address] [place] [address] Ortho Tech: DOLLY PereyraOINT OF CARE GLUCOSEon 79-50-9609Ibfaiqd [Mass/Vol]561 mg/dLCritically srkw80-271GalChildren'S Hospital Of ColumbusComment on above: Result Comment: Lab Draw OrderedPerformed By: #### DDIM #### [facility] [address] [address] [address] Sushila ParsonsCGLUC>600Critically frpl92-930Kxs [facility] CenterComment on above:Result Comment: Lab Draw OrderedPerformed By: #### DDIM #### [facility] [address] [address] [address] Sushila ParsonsCGLUC>600Critically hgwg39-431Ilq [facility] CenterComment on above:Result Comment: Previously ConfirmedPerformed By: #### DDIM #### [facility] [address] [place] [address] Dr. Sushila ParsonsCGLUC>600Critically fbqo37-415Sko [facility] CenterComment on above:Result Comment: Lab Draw OrderedPerformed By: #### DDIM #### [facility] [address] [place] [address] Dr. Sushila DongPROF CHEM 8 (BAS METB)on 90-88-4965Haswc gap [Moles/Vol]13.4 mmol/LNormalThe [facility] CenterComment on above:Performed By: #### BMP #### [facility] [address] [place] [address] Dr. Sushila DongCalcium [Mass/Vol]12.2 mg/dLCritically high8.5-10.1The [facility] CenterComment on above:Performed By: #### BMP #### [facility] [address] [place] [address] Dr. Sushila DongChloride [Moles/Vol]87 mmol/LCritically fev63-334Rvk [facility] CenterComment on above:Performed By: #### BMP #### [facility] [address] [place] [address] Dr. Sushila DongCO2 [Moles/Vol]25.9 mmol/CWribkv14.0-32.0The [facility] Comment on above:Performed By: #### BMP #### [facility] [address] [place] [address] Dr. Sushila DongCreatinine [Mass/Vol]2.51 mg/dLCritically high0.70-1.30The [facility] CenterComment on above:Performed By: #### BMP #### [facility] [address] [place] [address] Dr. Sushila RileyGFR-AF AWDELCNJ26 mL/min/1.08l0Zkrhpxfksi low>=60The [facility] CenterComment on above:Performed By: #### BMP #### [facility] [address] [place] [address] Dr. Sushila RileyGFR-NON AF ZVUUSCDQ55 mL/min/1.79p5Zikatcyqmt low>=60The [facility] CenterComment on above:Performed By: #### BMP #### [facility] [address] [place] [address] Dr. Sushila DongGlucose [Mass/Vol]863 mg/dLCritically kdmn21-407Yrp [facility] CenterComment on above:Performed By: #### BMP #### [facility] [address] [place] [address] Dr. Sushila DongPotassium [Moles/Vol]5.3 mmol/LCritically high3.5-5.1The [facility] CenterComment on above:Performed By: #### BMP #### [facility] [address] [place] [address] Dr. Sushila Quiñonezdium [Moles/Vol]120 mmol/LCritically dec900-195Acg [facility] CenterComment on above:Performed By: #### BMP #### [facility] [address] [place] [address] Dr. Sushila DongUrea nitrogen [Mass/Vol]40.0 mg/dLCritically high7.0-18.0The [facility] CenterComment on above:Performed By: #### BMP #### [facility] [address] [place] [address] Dr. Sushila Epstein nitrogen/Creatinine [Mass ratio]15.9 mg/mgNormalThe [facility] CenterComment on above:Performed By: #### BMP #### [facility] [address] [place] [address] Dr. Yilan ChangAnion gap [Moles/Vol]12.7 mmol/LNormalThe [facility] Comment on above:Performed By: #### DDIM #### [facility] [address] [place] [address] Dr. Sushila DongCalcium [Mass/Vol]10.8 mg/dLCritically high8.5-10.1The [facility] CenterComment on above:Performed By: #### DDIM #### [facility] [address] [place] [address] Dr. Sushila DongChloride [Moles/Vol]82 mmol/LCritically zio61-792Nmv [facility] CenterComment on above:Performed By: #### DDIM #### [facility] [address] [place] [address] Dr. Sushila DongCO2 [Moles/Vol]24.9 mmol/IJksfgz40.0-32.0[facility] Comment on above:Performed By: #### DDIM #### [facility] [address] [place] [address] Dr. Sushila DongCreatinine [Mass/Vol]2.75 mg/dLCritically high0.70-1.30The [facility] CenterComment on above:Performed By: #### DDIM #### [facility] [address] [place] [address] Dr. Sushila RileyGFR-AF BBVAYASM96 mL/min/1.20f9Sbawhrfsox low>=60The [facility] CenterComment on above:Performed By: #### DDIM #### [facility] [address] [place] [address] Dr. Sushila RileyGFR-NON AF YIHRZHRP70 mL/min/1.03p2Jcouflmmdw low>=60The [facility] CenterComment on above:Performed By: #### DDIM #### [facility] [address] [place] [address] Dr. Sushila DongGlucose [Mass/Vol]1135 mg/dLCritically pfoa91-688Nsu [facility] CenterComment on above:Performed By: #### DDIM #### [facility] [address] [place] [address] Dr. Sushila DongPotassium [Moles/Vol]5.6 mmol/LCritically high3.5-5.1The [facility] CenterComment on above:Performed By: #### DDIM #### [facility] [address] [place] [address] Dr. Sushila DongSodium [Moles/Vol]114 mmol/LCritically uwj724-822Zoh [facility] CenterComment on above:Result Comment: Lipemic Sample, notifiedPerformed By: #### DDIM #### [facility] [address] [place] [address] Dr. Sushila DongUrea nitrogen [Mass/Vol]39.0 mg/dLCritically high7.0-18.0The [facility] CenterComment on above:Performed By: #### DDIM #### [facility] [address] [place] [address] Dr. Sushila Epstein nitrogen/Creatinine [Mass ratio]14.2 mg/mgNormalThe [facility] CenterComment on above:Performed By: #### DDIM #### [facility] [address] [place] [address] Dr. Sushila Amaya 16-97-5121DRW Coag (PPP) [Relative time]0.94 {INR} NormalThe [facility] CenterComment on above:Performed By: #### PT, PTT #### [facility] [address] [place] [address] Dr. Sushila Lloyd GUIDELINESSEE BELOWRiverside Methodist HospitalComment on above:Result Comment: DESIRED INR: 2.0 - 3.0 CONDITIONS NOT LISTED BELOW 2.5 - 3.5 FOR PROSTHETIC HEART VALVE REPLACEMENT 2.5 - 3.5 RECURRENT THROMBOSIS Performed By: #### PT, PTT #### [facility] [address] [place] [address] Dr. Sushila Morfin Coag (PPP) [Time]10.0 sNormal9.0-11.6The [facility] Comment on above:Performed By: #### PT, PTT #### [facility] [address] [place] [address] Dr. Sushila Howell 04-91-2130uAGB Coag (Bld) [Time]27.1 xShzueu40.3-36.2The [facility] CenterComment on above:Performed By: #### PT, PTT #### [facility] [address] [address] [address] Sushila Zapien 91-00-0809Ioczoeax, High Bsod727 ng/LCritically high 0-22Uc HealthComment on above:Result Comment: High Sensitivity Troponin values cannot be compared with other Troponin methodologies. Previous Alert Value ReportedPerformed By: #### PT, GLYHGB, CDP #### [facility] [address] [place], [place] [id number] Ortho Tech: Vincent Sy MDTroponin, High Jbme707 ng/LCritically high0-22 [facility]c HealthComment on above:Result Comment: High Sensitivity Troponin values cannot be compared with other Troponin methodologies.Performed By: #### BMP, MG, CBC, PT, PTT #### [facility] [address] [place] [address] Ortho Tech: CARLOS ENRIQUE Pereyra MICROSCOPIC ONLYon [id number] SEENNormalNONE SEENChildren'S Hospital Of ColumbusCommunising memorial hospital on above:Performed By: #### LAI, ERUR #### [facility] [address] [address] [address] Sushila Andrew identified Cx Nom (U)NOT INDICATEDNormalThMercy Health Defiance HospitalComment on above:Performed By: #### LAI ERUR #### [facility] [address] [address] [address] Sushila Lazar SEENNormalNONE SEENChildren'S Hospital Of ColumbusCommunising memorial hospital on above:Performed By: #### LAI, ERUR #### [facility] [address] [place] [address] Dr. Sushila Boudreaux LM Nom (Urine sed)NONE SEENNormalNONE SEENThe Thomas HospitalComment on above:Performed By: #### BLAYNERO, ERUR #### [facility] [address] [place], [place] [address] Dr. Conti ChangEpithelial cells LM Ql (Urine sed)FEWAbnormalNONE SEEN /RAREThe [facility] CenterComment on above:Performed By: #### BLAYNERO, ERUR #### [facility] [address] [place], [place] [address] Dr. Conti ChangMUCOUSNONE SEENNormalNONE SEENThe [facility] CenterComment on above:Performed By: #### BLAYNERO, ERUR #### [facility] [address] [id number] [address] Sushila DongDfkwtBKQ0-6Vwhqrzba5-4Buy [facility] CenterComment on above:Performed By: #### LAI, ERUR #### [facility] [address] [place], [place] [address] Dr. Sushila DongWBC2-5AbnormalNONE SEENThe [facility] CenterComment on above: Performed By: #### BLAYNERO, ERUR #### [facility] [address] [place], [place] [address] Dr. Sushila DongXR CHEST 2 Von [id number] CHEST 2 VCLINICAL HISTORY: Chest pain. COMPARISON: Chest radiograph 08/26/2018. FINDINGS: PA and lateral views of the chest obtained. Cardiomediastinal silhouette is normal. Lungs are clear, no evidence of infiltrate or pleural effusion. No suspicious nodule or mass. No evidence of pneumothorax. No acute bony abnormality. IMPRESSION: No acute abnormality. Electronically authenticated by: LION ZHU Date: 2022-05-23 02:59[facility] with Auto Differentialon [id number] Eos #0.10[facility]CY HEALTHAbsolute Lymph #2.30[facility] HEALTHAbsolute [place] # 0.80[facility] HEALTHBasophils (Bld) [#/Vol]0.00 10*3/uLBON [facility]RS MERCY HEALTHBasophils/100 WBC (Bld)1 %0 - 2 %[facility] HEALTHEosinophils/100 WBC (Bld)2 %1 - 4 %[facility] HEALTHHematocrit (Bld) [Volume fraction] 40.3 %Low41 - 53 %[facility] HEALTHHemoglobin (Bld) [Mass/Vol]13.5 g/dL 13.5 - 17.5 g/dLBON [facility]CL[facility] HEALTHInterpretation and review of laboratory resultsAbnormalBON SECLOU[facility] HEALTHLymphocytes/100 WBC (Bld)32 %24 - 44 %[facility]OSPITALH (RBC) [Entitic mass]28.2 pg26 - 34 pgBON SECOURS [facility] CENTERHC (RBC) [Mass/Vol]33.6 g/dL31 - 37 g/dLBON SECADAMS COUNTY REGIONAL MEDICAL CENTERV (RBC) [Entitic vol]84.1 fL80 - 100 fLBON SECOURS [facility]ITAL HEALTHMonocytes/100 WBC (Bld)11 %2 - 11 %[facility] SECL[facility] HEALTHPlatelet distribution width (Bld) [Ratio]13.9 %12.5 - 15.4 %[facility] HEALTHPlatelet mean volume (Bld) [Entitic vol]7.2 fL6 - 12 fLBON SECOURS [facility]ILLICOTHE [facility]OS[facility]ITAL HEALTHPlatelets (Bld) [#/Vol]256 10*3/uLBON [facility] HEALTHRBC (Bld) [#/Vol]4.79 10*6/uL4.5 - 5.9 m/uLBON MER[facility] HEALTH LORAIN HOSPITALSegmented neutrophils/100 WBC (Bld)54 %36 - 66 %[facility] HEALTHSegs Absolute3.90B[facility] HEALTHWBC (Bld) [#/Vol]7.1 10*3/uLBON [facility] SECL[facility] HEALTHComprehensive Metabolic Panelon [id number] [Mass/Vol]4.3 g/dL3.5 - 5.2 g/dLBON [facility]CL[facility] HEALTHAlbumin/Globulin [Mass ratio]1.3 {ratio}1 - 2.5BON [facility]CL[facility] HEALTHALP (Bld) [Catalytic activity/Vol]85 U/L40 - 129 U/LBON [facility] HEALTHALT [Catalytic activity/Vol]36 U/L5 - 41 U/LBON SECHOLMES COUNTY JOEL [facility]OM[facility] MEMORIAL HOSPITALAnion gap [Moles/Vol]8 mmol/LLow9 - 17 mmol/LBON [facility] HEALTHAST [Catalytic activity/Vol]22 U/LNINF - 40 U/LBON SECLIFEPOINT HEALTHY HEALTHBilirubin [Mass/Vol]0.44 mg/dL0.3 - 1.2 mg/dLBON [facility] HEALTHCalcium [Mass/Vol]10.5 mg/dLHigh8.6 - 10.4 mg/dLBON [facility] HEALTHChloride [Moles/Vol]106 mmol/L98 - 107 mmol/LBON [facility] HEALTHCO2 [Moles/Vol]23 mmol/L20 - 31 mmol/LBON [facility] HEALTHCreatinine [Mass/Vol]1.46 mg/dLHigh0.7 - 1.2 mg/dLBON SECHOLMES COUNTY JO[facility]OM[facility] HOSPITALFree PSA/Total PSA [Mass fraction]7.7 g/dL6.4 - 8.3 g/dLBON [facility] WurlGFR >6060 - PINF mL/minBON [facility] HEALTHGFR Non- Uezkduqv26 mL/hugEuf07 - PINF mL/minBON [facility] HEALTHGFR/1.73 sq M.predicted MDRD (S/P/Bld) [Vol rate/Area][facility] LORAIN HOSPITALComment on above:Average GFR for 30-39 years old: 107 mL/min/1.73sq m Chronic Kidney Disease: <60 mL/min/1.73sq m Kidney failure: <15 mL/min/1.73sq m eGFR calculated using average adult body mass. Additional eGFR calculator available at: http://www.Bidgely.StartupHighway/multiple_crcl_2012.htm Glucose [Mass/Vol]96 mg/dL70 - 99 mg/dLBON MER[facility]ALTH LORAIN HOSPITALInterpretation and review of laboratory resultsAbnormalBON [facility] HEALTHPotassium [Moles/Vol]5.4 mmol/LHigh3.7 - 5.3 mmol/LBON [facility] HEALTHSodium [Moles/Vol]137 mmol/L135 - 144 mmol/LBON [facility] MERCY HEALTHUrea nitrogen (BldV) [Mass/Vol]21 mg/dLHigh6 - 20 mg/dLBON [facility] HEALTHBON [facility] HEALTHAlbuminon 63-67-1017Yctzval [Mass/Vol]4.2 g/dL3.5 - 5.2 g/dLBON [facility]ERY HEALTHBasic Metabolic Panelon 51-69-7886Cktsp gap [Moles/Vol]11 mmol/L9 - 17 mmol/LBON [facility] HEALTHCalcium [Mass/Vol]11.5 mg/dLHigh8.6 - 10.4 mg/dLB[facility] HEALTHChloride [Moles/Vol]107 mmol/L98 - 107 mmol/L [facility]ERY HEALTHCO2 [Moles/Vol]21 mmol/L20 - 31 mmol/LBON [facility]ERY HEALTHCreatinine [Mass/Vol]1.47 mg/dLHigh0.7 - 1.2 mg/dLBON [facility]ALTH GFR >6060 - PINF mL/minB[facility] HEALTHGFR Non- Gbavcxtr67 mL/iwkGpw96 - PINF mL/minBON [facility] HEALTHGlucose [Mass/Vol]90 mg/dL70 - 99 mg/dLB[facility] HEALTHPotassium [Moles/Vol]4.6 mmol/L3.7 - 5.3 mmol/LBON [facility]CY HEALTHSodium [Moles/Vol]139 mmol/L135 - 144 mmol/L [facility]ERY HEALTHUrea nitrogen (BldV) [Mass/Vol]27 mg/dLHigh6 - 20 mg/dL [facility] HEALTHUrea nitrogen/Creatinine (Bld) [Mass ratio]189 - 20B[facility]ERY HEALTHCBCon [id number] (Bld) [Volume fraction]42.5 %40.7 - 50.3 %[facility]ERY HEALTHHemoglobin (Bld) [Mass/Vol]14.1 g/dL13 - 17 g/dL [facility] CENTERH (RBC) [Entitic mass]28.1 pg25.2 - 33.5 pgBON [facility]OURS [facility]ICAL CENTERHC (RBC) [Mass/Vol]33.2 g/dL28.4 - 34.8 g/dLBON [facility]ERY HEALTHMCV (RBC) [Entitic vol]84.8 fL82.6 - 102.9 fLRIVERSIDE BEHAVIORAL HEALTH CENTERNRBC Automated0.00.0 per 100 WBCBON MERCY HEALTH LORAIN HOSPITALPlatelet distribution width (Bld) [Ratio]12.7 %11.8 - 14.4 %BON [facility] LORAIN HOSPITALPlatelet mean volume (Bld) [Entitic vol]9.3 fL8.1 - 13.5 fLRIVERSIDE BEHAVIORAL HEALTH CENTERPlatelets (Bld) [#/Vol]257 10*3/uLBON [facility] LORAIN HOSPITALRBC (Bld) [#/Vol]5.01 10*6/uL4.21 - 5.77 m/uLRIVERSIDE BEHAVIORAL HEALTH CENTERWBC (Bld) [#/Vol]6.3 10*3/uLBON [facility]OSPITALCalcium, Ionizedon 41-35-9200Ihslyff, Ionized1.6 mmol/LHigh1.13 - 1.33 mmol/LBON [facility] HOSPITALInterpretation and review of laboratory resultsAbnoBlack Hills Surgery Center Laboratory - Chemistry and Chemistry - challengeon [id number]/1.73 sq M.predicted MDRD (S/P/Bld) [Vol rate/Area][facility] HEALTH CENTERComment on above:Average GFR for 30-39 years old: 107 mL/min/1.73sq m Chronic Kidney Disease: <60 mL/min/1.73sq m Kidney failure: <15 mL/min/1.73sq m eGFR calculated using average adult body mass. Additional eGFR calculator available at: http://www.Bidgely.StartupHighway/multiple_crcl_2012.htm Stage 1: Some kidney damage normal GFR Stage 2: Mild kidney damage GFR 60-89 Stage 3: Moderate kidney damage GFR 30-59 Stage 4: Severe kidney damage GFR 15-29 Stage 5: Severe kidney damage GFR <15 ESRD - chronic treatment by dialysis or transplant No Panel Informationon [id number] and review of laboratory results AbnormalBON [facility]WOOD [facility] HOSPITALPTH, [place] 09-28-2021 Interpretation and review of laboratory resultsAbnormBon [facility] Pth Zwncij101.2 pg/sLRmqw25 - 65 pg/mLBON [facility]uclid Hospitalment on above: SAMPLES FROM PATIENTS ROUTINELY RECEIVING HIGH DOSE BIOTIN THERAPY MAY SHOW FALSELY DEPRESSED RESULTS. ADDITIONAL INFORMATION MAY BE REQUIRED FOR DIAGNOSIS. BON [facility] HOSPITALPhosphoruson 46-65-5051Fehbrmcfd [Mass/Vol]2.4 mg/dLLow 2.5 - 4.5 mg/dLBON [facility] HOSPITALProtein / creatinine ratio, urineon [id number], Ur112.4 mg/dL39 - 259 mg/dLBON [facility] Interpretation and review of laboratory resultsAbnoSentara Leigh Hospital Protein (U) [Mass/Vol]95 mg/dLBON [facility] Clinic Euclid Hospitalment on above:No normal range established.Urine Total Protein Creatinine Ratio0.86Pyjq6 - 0.2BON [facility] HOSPITALBasic Metabolic Panelon 09-17-2021 Anion gap [Moles/Vol]9 mmol/L9 - 17 mmol/LBON [facility]AIN HOSPITALCalcium [Mass/Vol]8.6 mg/dL8.6 - 10.4 mg/dLBON [facility] LORAIN HOSPITALChloride [Moles/Vol] 111 mmol/LHigh98 - 107 mmol/LBON [facility] LORAIN HOSPITALCO2 [Moles/Vol]21 mmol/L20 - 31 mmol/LBON [facility] HOSPITALCreatinine [Mass/Vol]1.31 mg/dLHigh0.7 - 1.2 mg/dLBON [facility] LORAIN HOSPITALGFR >6060 - PINF mL/minRIVERSIDE BEHAVIORAL HEALTH CENTERGFR Non->6060 - PINF mL/minRIVERSIDE BEHAVIORAL HEALTH CENTER Glucose [Mass/Vol]98 mg/dL70 - 99 mg/dLBON [facility] L[facility]AIN HOSPITALInterpretation and review of laboratory resultsAbnormalRIVERSIDE BEHAVIORAL HEALTH CENTERPotassium [Moles/Vol]4.7 mmol/L3.7 - 5.3 mmol/LBON [facility] LORAIN HOSPITALSodium [Moles/Vol] 141 mmol/L135 - 144 mmol/LBON [facility] LORAIN HOSPITALUrea nitrogen (BldV) [Mass/Vol]15 mg/dL6 - 20 mg/dLBON SECAllen ToursY HEALTHUrea nitrogen/Creatinine (Bld) [Mass ratio]119 - 20BON [facility]ST[facility] Laboratory - Chemistry and Chemistry - challengeon [id number]/1.73 sq M.predicted MDRD (S/P/Bld) [Vol rate/Area]BON [facility] OF AVONDALESpinX Technologies [facility] CENTERCV-Sight MERCY HEALTHComment on above:Average GFR for 30-39 years old: 107 mL/min/1.73sq m Chronic Kidney Disease: <60 mL/min/1.73sq m Kidney failure: <15 mL/min/1.73sq m eGFR calculated using average adult body mass. Additional eGFR calculator available at: http://www.MovieSet/multiple_crcl_2011.htm Stage 1: Some kidney damage normal GFR Stage 2: Mild kidney damage GFR 60-89 Stage 3: Moderate kidney damage GFR 30-59 Stage 4: Severe kidney damage GFR 15-29 Stage 5: Severe kidney damage GFR <15 ESRD - chronic treatment by dialysis or transplant CBC with Auto Differentialon [id number] Eos #0.22[facility] WurlAbsolute Immature Granulocyte<0.03[facility] HEALTHAbsolute Lymph # 2.23[facility] HEALTHAbsolute [place] #0.70[facility] HEALTHBasophils (Bld) [#/Vol]0.06 10*3/uLB[facility] WurlBasophils/100 WBC (Bld)1 %0 - 2 %[facility] PaySimpleY WurlEosinophils/100 WBC (Bld)3 %1 - 4 %[facility] NovitazHematocrit (Bld) [Volume fraction]38.9 %Low40.7 - 50.3 %[facility] WurlHemoglobin (Bld) [Mass/Vol]12.4 g/dLLow13.0 - 17.0 g/dLB[facility] WurlImmature granulocytes/100 WBC (Bld)0 %0BON SECFrensenius Vascular Care Interpretation and review of laboratory resultsAbnormalBON SECSpinX Technologies [facility] CENTERiGlue Lymphocytes/100 WBC (Bld)32 %24 - 43 %[facility] CENTERiGlueMCH (RBC) [Entitic mass]28.6 pg25.2 - 33.5 pgBON [...] 10*6/uL4.21 - 5.77 m/uLBON [facility] MERCY HEALTHSeg Uqltvpvvgjx21 %36 - 65 %[facility] HEALTHSegs Absolute3.69[facility] HEALTHWBC (Bld) [#/Vol]6.9 10*3/uLB[facility] HEALTHB[facility] HEALTHBasic Metabolic Panelon [id number] gap [Moles/Vol]13 mmol/L9 - 17 mmol/LB[facility] HEALTHCalcium [Mass/Vol]8.7 mg/dL8.6 - 10.4 mg/dLB[facility] HEALTHChloride [Moles/Vol]104 mmol/L98 - 107 mmol/LB[facility] HEALTHCO2 [Moles/Vol]20 mmol/L20 - 31 mmol/[facility] HEALTHCreatinine [Mass/Vol] 1.82 mg/dLHigh0.70 - 1.20 mg/dLB[facility] HEALTHGFR Qwfqbseh11 mL/minLow>60[facility] HEALTHGFR Non- Fiuvlhhv87 mL/minLow>60[facility] HEALTHGFR/1.73 sq M.predicted MDRD (S/P/Bld) [Vol rate/Area][facility] HEALTHGlucose [Mass/Vol]167 mg/mTKvut74 - 99 mg/dLBON [facility]OSPITALInterpretation and review of laboratory resultsAbnormalBON [facility] HOSPITALPotassium [Moles/Vol]3.6 mmol/LLow3.7 - 5.3 mmol/LBON [facility] HOSPITALSodium [Moles/Vol]137 mmol/L135 - 144 mmol/LBON [facility] HOSPITALUrea nitrogen (BldV) [Mass/Vol]30 mg/dLHigh6 - 20 mg/dLBON [facility] L[facility] HOSPITALBON [facility] HOSPITALCBC with Auto Differentialon [id number] Eos #0.08B[facility] HOSPITALAbsolute Immature Granulocyte0.04[facility] Absolute Lymph #1.41BON [facility] HOSPITALAbsolute [place] #0.92BON [facility] HOSPITALBasophils (Bld) [#/Vol]0.06 10*3/uLBON [facility] HOSPITALBasophils/100 WBC (Bld)1 %0 - 2 %[facility]ENTEREosinophils/100 WBC (Bld)1 %1 - 4 % [facility] CENTERHematocrit (Bld) [Volume fraction]38.5 %Low40.7 - 50.3 % [facility] CENTERHemoglobin (Bld) [Mass/Vol]12.9 g/dLLow13.0 - 17.0 g/dL [facility] CENTERImmature granulocytes/100 WBC (Bld)1 %Hodg3QSG [facility]OSPITALInterpretation and review of laboratory resultsAbnormalBON [facility] L[facility] HOSPITALLymphocytes/100 WBC (Bld)16 %Low24 - 43 %[facility]TSM[facility]THH (RBC) [Entitic mass]28.9 pg25.2 - 33.5 pgNAVAL MEDICAL CENTER PORTSMOUTHHC (RBC) [Mass/Vol]33.5 g/dL28.4 - 34.8 g/dLBON DOCTORS HOSPITALV (RBC) [Entitic vol]86.1 fL82.6 - 102.9 fLRIVERSIDE BEHAVIORAL HEALTH CENTERMonocytes/100 WBC (Bld)11 %3 - 12 %[facility] SECAllen ToursY HEALTHNRBC Automated0.00.0 per 100 WBCB[facility]RS MERCY HEALTHPlatelet distribution width (Bld) [Ratio]12.4 %11.8 - 14.4 %[facility] HEALTHPlatelet mean volume (Bld) [Entitic vol]10.5 fL8.1 - 13.5 fLBON [facility]RS MERCY HEALTHPlatelets (Bld) [#/Vol]316 10*3/uLB[facility] HEALTH RBC (Bld) [#/Vol]4.47 10*6/uL4.21 - 5.77 m/uLB[facility] MERCY HEALTHSeg Ryyufukikfq91 %High36 - 65 %[facility] HEALTHSegs Absolute6.22[facility] HEALTHWBC (Bld) [#/Vol]8.7 10*3/uLB[facility] HEALTHB[facility] PaySimpleY HEALTHCT CHEST WO CONTRASTon [id number] RIS CONSOLIDATEDMHPN RIS CONSOLIDATEDB[facility] PaySimpleY HEALTH Work Phone: radiology Study observation (narrative)[facility] [employer] Work Phone: cT CHEST WO CONTRASTOrdered By: Salty Gerard on [id number] SECEvino HEALTH Work Phone: afp Tumor Markeron [id number] (Alpha Fetoprotein) 1.5 ug/L<8.4[facility] PaySimpleY HEALTHB[facility] PaySimpleY HEALTHBasic Metabolic Panel w/ Reflex to MGon [id number] gap [Moles/Vol]10 mmol/L9 - 17 mmol/[facility] HEALTHCalcium [Mass/Vol]10.4 mg/dL8.6 - 10.4 mg/dLB[facility] HEALTHChloride [Moles/Vol]106 mmol/L98 - 107 mmol/[facility] HEALTHCO2 [Moles/Vol]26 mmol/L20 - 31 mmol/[facility] HEALTHCreatinine [Mass/Vol]1.84 mg/dLHigh0.70 - 1.20 mg/dLB[facility] HEALTHGFR Dakwtzgp25 mL/minLow>60[facility] HEALTHGFR Non- Jsbdnlor71 mL/min Low>60[facility] HEALTHGFR/1.73 sq M.predicted MDRD (S/P/Bld) [Vol rate/Area][facility]OSPITALGlucose [Mass/Vol]83 mg/dL70 - 99 mg/dLBON SECHOLMES [facility] HOSPITALInterpretation and review of laboratory resultsAbnormalBON SECOURS [facility]ITALPotassium [Moles/Vol]4.0 mmol/L3.7 - 5.3 mmol/LBON [facility] HOSPITALSodium [Moles/Vol]142 mmol/L135 - 144 mmol/LBON [facility] Urea nitrogen (BldV) [Mass/Vol]39 mg/dLHigh6 - 20 mg/dLBON [facility] BON [facility]OSPITALCBC with Auto Differentialon [id number] Eos # 0.27[facility]OSPITALAbsolute Immature Granulocyte0.04[facility]OSPITALAbsolute Lymph #2.10[facility] HOSPITALAbsolute [place] #0.67[facility] HOSPITALBasophils (Bld) [#/Vol]0.07 10*3/uLBON [facility] Basophils/100 WBC (Bld)1 %0 - 2 %[facility] CENTEREosinophils/100 WBC (Bld)3 %1 - 4 %[facility]ALTH CENTERHematocrit (Bld) [Volume fraction]41.5 % 40.7 - 50.3 %[facility] HE[facility] CENTERHemoglobin (Bld) [Mass/Vol]13.3 g/dL13.0 - 17.0 g/dLBON SECH[facility] HOSPITALImmature granulocytes/100 WBC (Bld)1 %Jhnp0MWT [facility]OSPITALInterpretation and review of laboratory resultsAbnormalBON [facility] HOSPITALLymphocytes/100 WBC (Bld)24 %24 - 43 %[facility]TSM[facility]THH (RBC) [Entitic mass]28.5 pg25.2 - 33.5 pgBON DOCTORS HOSPITALHC (RBC) [Mass/Vol]32.0 g/dL28.4 - 34.8 g/dLBON SECOURS [facility] HEALTHMCV (RBC) [Entitic vol]88.9 fL82.6 - 102.9 fLBON SECOURS [facility] HEALTHMonocytes/100 WBC (Bld)8 %3 - 12 %[facility] HEALTHNRBC Automated0.00.0 per 100 WBCB[facility]CY HEALTHPlatelet distribution width (Bld) [Ratio]12.3 %11.8 - 14.4 % [facility] HEALTHPlatelet mean volume (Bld) [Entitic vol]10.1 fL8.1 - 13.5 fLBON SECOURS [facility]ERY HEALTHPlatelets (Bld) [#/Vol]370 10*3/uLBON [facility] HEALTHRBC (Bld) [#/Vol]4.67 10*6/uL4.21 - 5.77 m/uLBON SEC[facility]RS [facility]ERY HEALTHSeg Dnzgflodecl27 %36 - 65 %[facility] HEALTHSegs Absolute5.44[facility] HEALTHWBC (Bld) [#/Vol]8.6 10*3/uLBON [facility] HEALTHBON SECOURS [facility] HEALTHVitamin D 25 Hydroxyon 11-39-4309Xosfaimcjggdhy and review of laboratory resultsAbnormalBON SECOURS [facility] HEALTHVit D, 25-Oeukzpz15.9 ng/mL Low>29.9B[facility] HEALTHBON SECOURS [facility] HEALTHBasic Metabolic Panel w/ Reflex to MGon [id number] gap [Moles/Vol]13 mmol/L9 - 17 mmol/LB[facility] PaySimpleY HEALTHCalcium [Mass/Vol]10.7 mg/dLHigh8.6 - 10.4 mg/dLB[facility] HEALTHChloride [Moles/Vol]100 mmol/L98 - 107 mmol/LBON [facility] HEALTHCO2 [Moles/Vol]26 mmol/L20 - 31 mmol/LB[facility] HEALTHCreatinine [Mass/Vol] 2.12 mg/dLHigh0.70 - 1.20 mg/dLB[facility] HEALTHGFR Esyopxip54 mL/minLow>60[facility] HEALTHGFR Non- Onvstpmg79 mL/minLow>60[facility] PaySimpleY HEALTHGFR/1.73 sq M.predicted MDRD (S/P/Bld) [Vol rate/Area][facility] HOSPITALGlucose [Mass/Vol]110 mg/eKBunv84 - 99 mg/dLBON [facility]CH[facility] HOSPITALInterpretation and review of laboratory resultsAbnormalBON [facility] HOSPITALPotassium [Moles/Vol]3.6 mmol/LLow3.7 - 5.3 mmol/LBON [facility]PITALSodium [Moles/Vol]139 mmol/L135 - 144 mmol/LBON [facility] HOSPITALUrea nitrogen (BldV) [Mass/Vol]41 mg/dLHigh6 - 20 mg/dLBON SECOURS [facility] HOSPITALBON [facility] HOSPITALCBC with Auto Differentialon [id number] Eos #0.26[facility] HOSPITALAbsolute Immature Granulocyte0.03[facility] Absolute Lymph #3.18[facility]OSPITALAbsolute [place] #0.97[facility] HOSPITALBasophils (Bld) [#/Vol]0.08 10*3/uLBON [facility] HOSPITALBasophils/100 WBC (Bld)1 %0 - 2 %BON [facility] HOSPITALEosinophils/100 WBC (Bld)3 %1 - 4 % [facility] CENTERHematocrit (Bld) [Volume fraction]40.3 %Low40.7 - 50.3 % [facility] CENTERHemoglobin (Bld) [Mass/Vol]13.0 g/dL13.0 - 17.0 g/dLBON [facility] HOSPITALImmature granulocytes/100 WBC (Bld)0 %0B[facility]OS[facility]ITALInterpretation and review of laboratory resultsAbnormalBON [facility] L[facility] HOSPITALLymphocytes/100 WBC (Bld)34 %24 - 43 %[facility]THH (RBC) [Entitic mass]28.4 pg25.2 - 33.5 pgBON DOCTORS HOSPITALHC (RBC) [Mass/Vol] 32.3 g/dL28.4 - 34.8 g/dLBON SECAD[facility] CENTERV (RBC) [Entitic vol]88.2 fL 82.6 - 102.9 fLBON [facility]CY HEALTHMonocytes/100 WBC (Bld)11 %3 - 12 %[facility] SECSpinX Technologies [facility] HEALTHNRBC Automated0.00.0 per 100 WBCINOVA LOUDOUN [facility]PITAL HEALTH Platelet distribution width (Bld) [Ratio]12.2 %11.8 - 14.4 %[facility]ENTERY HEALTHPlatelet mean volume (Bld) [Entitic vol]11.5 fL8.1 - 13.5 fLBON SEC[facility]RS [facility] HEALTHPlatelets (Bld) [#/Vol]401 10*3/uLBON [facility]ERY HEALTHRBC (Bld) [#/Vol]4.57 10*6/uL4.21 - 5.77 m/uLBON SECMARIA ELENA [facility] HEALTHSeg Ybgmkxsjfec22 %36 - 65 %[facility] HEALTHSegs Absolute4.72BON SECMARIA ELENA [facility] HEALTHWBC (Bld) [#/Vol]9.2 10*3/uLBON [facility] HOSPITALBON SECLOUISIANA HEART HOSPITAL HEALTHSPECIMEN REJECTIONon [id number] TestBMPXBON SECLOUISIANA [facility]ITAL HEALTHReason for RejectionUnable to perform testing: Specimen hemolyzed.[facility] Specimen source Nom (Unsp spec).[facility]ODVAL[facility] SECCOMMUN[facility] SECLOUISIA[facility]ART [facility] HEALTHOrdered TestBMPXBON SECOURS [facility]ERY HEALTHReason for RejectionUnable to perform testing: Specimen hemolyzed.[facility] SECAllen ToursUC MEDICAL CENTERSpecimen source Nom (Unsp spec).BLOODVALLEYWISE [facility] SECCOMMUNITY MEMORIAL [facility]OSPITAL SECHOLMES COUNTY [facility] HOSPITALBasic Metabolic Panel w/ Reflex to MGon [id number] gap [Moles/Vol]14 mmol/L9 - 17 mmol/L [facility] HEALTHCalcium [Mass/Vol]10.4 mg/dL8.6 - 10.4 mg/dLBON SECOU[facility] HEALTHChloride [Moles/Vol]102 mmol/L98 - 107 mmol/LBON [facility] HEALTHCO2 [Moles/Vol]23 mmol/L20 - 31 mmol/LBON [facility] HEALTHCreatinine [Mass/Vol]1.82 mg/dLHigh0.70 - 1.20 mg/dLBON SECLIFEPOINT HEALTHY HEALTHGFR Wuqkxucf49 mL/minLow>60[facility] HEALTHGFR Non- Isrngojj70 mL/min Low>60[facility] HEALTHGFR/1.73 sq M.predicted MDRD (S/P/Bld) [Vol rate/Area][facility] HEALTHGlucose [Mass/Vol]141 mg/aIAcki88 - 99 mg/dL [facility] HEALTHInterpretation [...] mg/dLHigh0.70 - 1.20 mg/dLB[facility] HEALTHGFR Xipgnsdo59 mL/minLow>60[facility] HEALTHGFR Non- 39 mL/minLow>60[facility] HEALTHGFR/1.73 sq M.predicted MDRD (S/P/Bld) [Vol rate/Area][facility] HEALTHGlucose [Mass/Vol]130 mg/qHIzms58 - 99 mg/dLB[facility] HEALTHInterpretation and review of laboratory results AbnormalB[facility] HEALTHPotassium [Moles/Vol]3.2 mmol/LLow3.7 - 5.3 mmol/LB[facility] HEALTHSodium [Moles/Vol]144 mmol/L135 - 144 mmol/LB[facility] HEALTHUrea nitrogen (BldV) [Mass/Vol]40 mg/dLHigh6 - 20 mg/dLB[facility] MER[facility] HEALTHB[facility] HEALTHC-Reactive Proteinon 50-19-9620TQA [Mass/Vol]29.4 mg/LHigh0.0 - 5.0 mg/LBON [facility]OSPITALInterpretation and review of laboratory resultsAbnormalBON [facility] HOSPITALCBC with Auto Differentialon [id number] Eos #0.12B[facility] HOSPITALAbsolute Immature Granulocyte0.04BON [facility] HOSPITALAbsolute Lymph # 2.32BON [facility] HOSPITALAbsolute [place] #1.03BON [facility] HOSPITALBasophils (Bld) [#/Vol]0.06 10*3/uLBON [facility] HOSPITALBasophils/100 WBC (Bld)1 %0 - 2 %[facility] CENTEREosinophils/100 WBC (Bld)1 %1 - 4 %[facility] CENTERHematocrit (Bld) [Volume fraction]40.7 %40.7 - 50.3 %[facility] HE[facility] CENTERHemoglobin (Bld) [Mass/Vol]12.7 g/dLLow13.0 - 17.0 g/dLBON [facility] L[facility]AIN HOSPITALImmature granulocytes/100 WBC (Bld)0 %0B[facility] Interpretation and review of laboratory resultsAbnormalBON [facility] Lymphocytes/100 WBC (Bld)23 %Low24 - 43 %[facility]TSM[facility]THH (RBC) [Entitic mass]28.6 pg25.2 - 33.5 pgNAVAL MEDICAL CENTER PORTSMOUTHHC (RBC) [Mass/Vol] 31.2 g/dL28.4 - 34.8 g/dLBON DOCTORS HOSPITALV (RBC) [Entitic vol]91.7 fL 82.6 - 102.9 fLRIVERSIDE BEHAVIORAL HEALTH CENTERMonocytes/100 WBC (Bld)10 %3 - 12 %[facility]AVIOR[facility] HEALTH CENTERNRBC Automated0.00.0 per 100 WBCRIVERSIDE BEHAVIORAL HEALTH CENTER Platelet distribution width (Bld) [Ratio]12.7 %11.8 - 14.4 %[facility]AV[facility] HEALTH CENTERPlatelet mean volume (Bld) [Entitic vol]10.7 fL8.1 - 13.5 fLBON SECMARIA ELENA [facility] CENTERY HEALTHPlatelets (Bld) [#/Vol]417 10*3/uLBON SECMARIA ELENA [facility]ENTERY HEALTHRBC (Bld) [#/Vol]4.44 10*6/uL4.21 - 5.77 m/uLBON SECMARIA ELENA [facility] MEDICAL CENTERJed HEALTHSeg Ulfpyhgdget74 %36 - 65 %BON SECMARIA ELENA [facility] HEALTHSegs Absolute6.35BON SECMARIA ELENA [facility] MEDICAL CENTERJed HEALTHWBC (Bld) [#/Vol]9.9 10*3/uLBON SECMARIA ELENA [facility]ERY HEALTHVALLEYWISE [facility] SECMARIA ELENA [facility] HEALTHCOVID- 19, Rapidon [id number]-CoV-2 (COVID-19) RNA VIK+probe Ql (Unsp spec)Not detectedNot DetectedBON SECLOUISIA[facility] HEALTHSpecimen Description.NASOPHARYNGEAL SWABBON SECCOMMUNITY MEMOR[facility] SECHOLMES COUNTY [facility] HOSPITALCardiolipin antibody, IgAon 95-65-0214Zrmzbldarfhkknu IgA7.6BON SE[address] [facility] HEALTH Magnesiumon 16-69-6573Decephyab [Mass/Vol]2.3 mg/dL1.6 - 2.6 mg/dLBON SECASP[facility] PARATHYORID W SPECTon [id number] RIS CONSOLIDATEDPN RIS [facility] Work Phone: radiology Study observation (narrative)[facility] [employer]url Work Phone: nm PARATHYORID W SPECTOrdered By: Lyndon Magaña on [id number] [facility] HEALTH Work Phone: No Panel Informationon [id number] RIS CONSOLIDATED PN RIS CONSOLIDATEDVALLEYWISE [facility]ALTH [facility] HEALTH Work Phone: bON [facility] Work Phone: radiology Study observation (narrative)[facility] [employer] Work Phone: sedimentation Rateon [id number] and review of laboratory resultsAbnormalBON SECLIFEPOINT HEALTHY HEALTHSed Pleg78OxufSOK LEAD-[facility]ADWO[facility] HOSPITALTSH with Reflexon 62-65-3550SBP Qn 0.82 m[IU]/LBON [facility] HOSPITALBasic Metabolic Panel w/ Reflex to MGon 60-33-8988Dnaqr gap [Moles/Vol]12 mmol/L9 - 17 mmol/LBON [facility] HEALTHCalcium [Mass/Vol]10.3 mg/dL8.6 - 10.4 mg/dLBON [facility] HEALTHChloride [Moles/Vol]106 mmol/L98 - 107 mmol/LBON [facility]ALEOU[facility] HEALTHCO2 [Moles/Vol]27 mmol/L20 - 31 mmol/LBON [facility] HOSPITALCreatinine [Mass/Vol]1.99 mg/dLHigh0.70 - 1.20 mg/dLBON [facility] LORAIN HOSPITALGFR Klokrelo35 mL/minLow>60BON [facility] HOSPITALGFR Non- Hgrnlbdd43 mL/min Low>60BON [facility] HOSPITALGFR/1.73 sq M.predicted MDRD (S/P/Bld) [Vol rate/Area][facility] CENTERGlucose [Mass/Vol]124 mg/mLUxkl79 - 99 mg/dL [facility] CENTERInterpretation and review of laboratory resultsAbnormal BON [facility] HOSPITALPotassium [Moles/Vol]3.5 mmol/LLow3.7 - 5.3 mmol/LBON [facility] L[facility]AIN HOSPITALSodium [Moles/Vol]145 mmol/SUovq142 - 144 mmol/LBON [facility] L[facility]AIN HOSPITALUrea nitrogen (BldV) [Mass/Vol]42 mg/dLHigh6 - 20 mg/dLBON [facility] HOSPITALAnion gap [Moles/Vol]14 mmol/L9 - 17 mmol/L B[facility] HOSPITALCalcium [Mass/Vol]10.5 mg/dLHigh8.6 - 10.4 mg/dLBON [facility] HEALTHChloride [Moles/Vol]110 mmol/LHigh98 - 107 mmol/LBON [facility] HOSPITALCO2 [Moles/Vol]26 mmol/L20 - 31 mmol/LBON [facility] Creatinine [Mass/Vol]1.74 mg/dLHigh0.70 - 1.20 mg/dLBON SEC[facility] HEALTHGFR Gsuptpkt50 mL/minLow>60B[facility] HEALTHGFR Non- 44 mL/minLow>60B[facility]OSPITALGFR/1.73 sq M.predicted MDRD (S/P/Bld) [Vol rate/Area][facility]OSPITALGlucose [Mass/Vol]121 mg/mXYjla93 - 99 mg/dLBON SECHOLM[facility] HOSPITALInterpretation and review of laboratory results AbnormalBON SECOURS [facility] HOSPITALPotassium [Moles/Vol]3.9 mmol/L3.7 - 5.3 mmol/L [facility] HOSPITALSodium [Moles/Vol]150 mmol/ZUrmc046 - 144 mmol/LBON [facility] L[facility]AIN HOSPITALUrea nitrogen (BldV) [Mass/Vol]46 mg/dLHigh6 - 20 mg/dLBON SECH[facility] HOSPITALBON [facility] HOSPITALCBC with Auto Differentialon [id number] Eos #0.05B[facility]OSPITALAbsolute Immature Granulocyte0.04B[facility]OSPITALAbsolute Lymph #1.59B[facility] HOSPITALAbsolute [place] #0.83BON [facility]CH[facility] HOSPITALBasophils (Bld) [#/Vol]0.06 10*3/uLBON [facility] HOSPITALBasophils/100 WBC (Bld)1 %0 - 2 %[facility] CENTEREosinophils/100 WBC (Bld)1 %1 - 4 %[facility] Hematocrit (Bld) [Volume fraction]40.8 %40.7 - 50.3 %[facility] Hemoglobin (Bld) [Mass/Vol]13.3 g/dL13.0 - 17.0 g/dLBON [facility] Immature granulocytes/100 WBC (Bld)0 %0R[facility] HEALTH CENTERInterpretation and review of laboratory resultsAbnormalBON [facility] L[facility]AIN HOSPITALLymphocytes/100 WBC (Bld)16 %Low24 - 43 %[facility] (RBC) [Entitic mass]28.7 pg 25.2 - 33.5 pgBON [facility]OU[facility] HEALTHMCHC (RBC) [Mass/Vol]32.6 g/dL28.4 - 34.8 g/dLBON [facility]AIN HOSPITALMCV (RBC) [Entitic vol]88.1 fL82.6 - 102.9 fLRIVERSIDE BEHAVIORAL HEALTH CENTERMonocytes/100 WBC (Bld)9 %3 - 12 %[facility] NRBC Automated0.00.0 per 100 WBCBON [facility] LORAIN HOSPITALPlatelet distribution width (Bld) [Ratio]12.5 %11.8 - 14.4 %[facility]OSPITALPlatelet mean volume (Bld) [Entitic vol]10.0 fL8.1 - 13.5 fLBON [facility]CHOLM[facility] HOSPITALPlatelets (Bld) [#/Vol]428 10*3/uLBON [facility] HOSPITALRBC (Bld) [#/Vol]4.63 10*6/uL 4.21 - 5.77 m/uLBON MER[facility] HEALTH LORAIN HOSPITALSeg Sklofnhtknw72 %High36 - 65 %[facility]ITALSegs Absolute7.15[facility] HOSPITALWBC (Bld) [#/Vol] 9.7 10*3/uLBON [facility]OSPITALMagnesiumon 98-02-1716Ndfrphmkf [Mass/Vol]2.4 mg/dL1.6 - 2.6 mg/dLBON [facility] B[facility] HOSPITALPTH, Intact with Ionized Calciumon [id number] [Moles/Vol]1.46 mmol/LHigh1.13 - 1.33 mmol/LBON [facility] Interpretation and review of laboratory resultsAbnormalB[facility] Pth Vdhuxz599.5 pg/sAHsla79.0 - 65.0 pg/mLBON [facility] HOSPITALArterial Blood Gas, POCon [id number] TestPositiveBON MER[facility] LORAIN HOSPITALFIO240.0[facility]OSPITALHCO3 (Bld) [Moles/Vol]29.3 mmol/L High21.0 - 28.0 mmol/LBON [facility]OSPITALModePRVCBON [facility] HOSPITALO2 Device/Flow/%Adult VentilatorBON [facility]ERY HEALTHOxygen saturation in Blood 98 %94.0 - 98.0 %[facility] nNL619.2HighBON [facility] CENTERC pH7.392B[facility] CENTERC PO298.0[facility] Positive Base Excess, [id number] BEHAVIORAL HEALTH CENTERSample SiteRight Radial ArteryRIVERSIDE BEHAVIORAL HEALTH CENTERBasic Metabolic Panel w/ Reflex to MGon 09-06-2021 Anion gap [Moles/Vol]13 mmol/L9 - 17 mmol/LBON [facility] HOSPITALCalcium [Mass/Vol]11.0 mg/dLHigh8.6 - 10.4 mg/dLBON [facility] HOSPITALChloride [Moles/Vol]109 mmol/LHigh98 - 107 mmol/LBON [facility] L[facility] HOSPITALCO2 [Moles/Vol] 25 mmol/L20 - 31 mmol/LBON [facility] HOSPITALCreatinine [Mass/Vol]1.78 mg/dL High0.70 - 1.20 mg/dLBON [facility] HOSPITALGFR Uzkjgyds16 mL/minLow>60 [facility]ENTERGFR Non- Ukewohis28 mL/minLow>60[facility] CENTERGFR/1.73 sq M.predicted MDRD (S/P/Bld) [Vol rate/Area][facility] CENTERGlucose [Mass/Vol]121 mg/tGThmb27 - 99 mg/dLB[facility] Interpretation and review of laboratory resultsAbnormalRIVERSIDE BEHAVIOR[facility] Potassium [Moles/Vol]4.1 mmol/L3.7 - 5.3 mmol/LBON [facility] L[facility]AIN HOSPITALSodium [Moles/Vol]147 mmol/QMqbi748 - 144 mmol/LBON [facility] HOSPITALUrea nitrogen (BldV) [Mass/Vol]55 mg/dLHigh6 - 20 mg/dLBON [facility] HOSPITALCBC with Auto Differentialon [id number] Eos #0.22[facility]PITALAbsolute Immature Granulocyte<0.03[facility]ALEOURS [facility] HOSPITALAbsolute Lymph #1.59[facility] AVONDALEOURS [facility] FLOWER HOSPITALAbsolute [place] #1.20[facility] Basophils (Bld) [#/Vol]0.06 10*3/uLBON [facility] HEALTHBasophils/100 WBC (Bld)1 %0 - 2 %[facility] HEALTHEosinophils/100 WBC (Bld)2 %1 - 4 %[facility] HOSPITALHematocrit (Bld) [Volume fraction]40.1 %Low40.7 - 50.3 %[facility] HEALTHHemoglobin (Bld) [Mass/Vol]12.8 g/dLLow13.0 - 17.0 g/dLBON [facility]CH[facility] JOEL [facility]PITALImmature granulocytes/100 WBC (Bld)0 %0[facility] HEALTHInterpretation and review of laboratory resultsAbnormalBON SECHOLM[facility] COUNTY [facility] HOSPITALLymphocytes/100 WBC (Bld)16 %Low24 - 43 %[facility]ITALH (RBC) [Entitic mass]28.8 pg25.2 - 33.5 pgBON [facility] CENTERHC (RBC) [Mass/Vol]31.9 g/dL28.4 - 34.8 g/dLBON SECHOLM[facility] HOSPITALMCV (RBC) [Entitic vol]90.1 fL82.6 - 102.9 fLBON [facility] HEALTHMonocytes/100 WBC (Bld)12 %3 - 12 %[facility] HEALTHNRBC Automated0.00.0 per 100 WBCB[facility] HEALTHPlatelet distribution width (Bld) [Ratio]12.2 %11.8 - 14.4 %[facility] HEALTHPlatelet mean volume (Bld) [Entitic vol]10.3 fL8.1 - 13.5 fLBON [facility] HEALTHPlatelets (Bld) [#/Vol]357 10*3/uLB[facility] HEALTH RBC (Bld) [#/Vol]4.45 10*6/uL4.21 - 5.77 m/uLB[facility] HEALTHSeg Gjpanzqemmi14 %High36 - 65 %[facility] HEALTHSegs Absolute6.61[facility] HEALTHWBC (Bld) [#/Vol]9.7 10*3/uLBON [facility]OSPITALBON [facility] HEALTHNo Panel Informationon [id number] and review of laboratory resultsAbnormalB[facility] HEALTHB[facility] HEALTHPOCT Glucoseon 67-98-0561Qceivsc [Mass/Vol]117 mg/iDSzzv57 - 100 mg/dLBON [facility]Y MERCY HEALTHBLOOD GAS, VENOUSon 29-13-7199Svvexvjyxtdwopvmh3.7 %0 - 5 %[facility]IFEPOINT HEALTHCV-Sight [id number] NOT PROVIDEDBON [facility] HEALTHHCO3 (Bld) [Moles/Vol]28.3 mmol/L24 - 30 mmol/LBON [facility] HEALTHInterpretation and review of laboratory resultsAbnormalBON [facility] HEALTHOxygen saturation in Blood81.8 %60.0 - 85.0 %[facility] HEALTHCV-Sight HEALTHpCO2, Ven52.9[facility] HEALTHCV-Sight HEALTHpH, Ven7.348B[facility] HEALTHCV-Sight HEALTHpO2, Ven45.9[facility] HEALTHPositive Base Excess, Ven2.2 mmol/LHigh0.0 - 2.0 mmol/LBON [facility] CENTERCV-Sight HEALTHPt Temp37.0[facility] [facility]OSPITALBON [facility] HEALTHBasic Metabolic Panel w/ Reflex to MGon 01-27-8139Akkee gap [Moles/Vol]8 mmol/LLow9 - 17 mmol/LBON [facility] HEALTHCalcium [Mass/Vol]10.7 mg/dLHigh8.6 - 10.4 mg/dLBON [facility] HEALTHChloride [Moles/Vol]109 mmol/LHigh98 - 107 mmol/L [facility] HEALTHCV-Sight HEALTHCO2 [Moles/Vol]28 mmol/L20 - 31 mmol/LBON [facility] HEALTHCreatinine [Mass/Vol]1.8 mg/dLHigh0.70 - 1.20 mg/dLB[facility] HEALTHGFR Sjwkanqd84 mL/minLow>60[facility] HEALTHGFR Non- Fcjhfwud25 mL/minLow>60B[facility] PaySimpleY HEALTHGFR/1.73 sq M.predicted MDRD (S/P/Bld) [Vol rate/Area][facility] Si[employer] Processing HEALTHGlucose [Mass/Vol]123 mg/dLHigh 70 - 99 mg/dLBON [facility] HEALTHInterpretation and review of laboratory resultsAbnormalBON [facility] HOSPITALPotassium [Moles/Vol]4.0 mmol/L3.7 - 5.3 mmol/LBON [facility]OSPITALSodium [Moles/Vol]145 mmol/PHyhr505 - 144 mmol/L [facility] HE[facility] CENTERUrea nitrogen (BldV) [Mass/Vol]49 mg/dLHigh6 - 20 mg/dL [facility]ICAL CENTERCBC with Auto Differentialon [id number] Eos #0.32BON [facility] L[facility]AIN HOSPITALAbsolute Immature Granulocyte<0.03BON [facility] HOSPITALAbsolute Lymph #1.91B[facility] HOSPITALAbsolute [place] #1.05BON [facility] HOSPITALBasophils (Bld) [#/Vol]0.06 10*3/uLBON [facility] HOSPITALBasophils/100 WBC (Bld)1 %0 - 2 %[facility] HEALTH CENTEREosinophils/100 WBC (Bld)4 %1 - 4 %[facility] Hematocrit (Bld) [Volume fraction]38.1 %Low40.7 - 50.3 %[facility] Hemoglobin (Bld) [Mass/Vol]12.0 g/dLLow13.0 - 17.0 g/dLBON [facility] Immature granulocytes/100 WBC (Bld)0 %0[facility]ALTH CENTERInterpretation and review of laboratory resultsAbnormalRIVERSIDE BEHAVIORAL HEALTH CENTERLymphocytes/100 WBC (Bld)24 %24 - 43 %[facility]THH (RBC) [Entitic mass]28.6 pg 25.2 - 33.5 pgNAVAL MEDICAL CENTER PORTSMOUTHHC (RBC) [Mass/Vol]31.5 g/dL28.4 - 34.8 g/dLBON DOCTORS HOSPITALV (RBC) [Entitic vol]90.9 fL82.6 - 102.9 fLRIVERSIDE BEHAVIORAL HEALTH CENTERMonocytes/100 WBC (Bld)13 %High3 - 12 %[facility] HEALTH CENTERNRBC Automated0.00.0 per 100 WBCBON [facility] HEALTHPlatelet distribution width (Bld) [Ratio]12.5 %11.8 - 14.4 %[facility]ALTH Platelet mean volume (Bld) [Entitic vol]10.3 fL8.1 - 13.5 fLBON [facility] HEALTHPlatelets (Bld) [#/Vol]305 10*3/uLBON [facility] HEALTHRBC (Bld) [#/Vol]4.19 10*6/uLLow4.21 - 5.77 m/uLBON [facility] HEALTHSeg Ropzuhqhado29 %36 - 65 %[facility] HEALTHSegs Absolute4.65[facility] HEALTHWBC (Bld) [#/Vol]8.0 10*3/uLBON [facility] HEALTHB[facility] HEALTHCulture, Blood 1on 13-89-5384Cqgxzrun identified Cx Nom (Unsp spec)NO GROWTH 5 DAYSB[facility] HEALTHSpecimen Description.BLOODB[facility]ERY HEALTHB[facility] HEALTHBacteria identified Cx Nom (Unsp spec)NO GROWTH 5 DAYSBON [facility] HEALTHSpecimen Description.BLOODB[facility]ERY HEALTHB[facility] HEALTHArterial Blood Gas, POCon 11-91-7044Pgmoa TestPositiveBON [facility] DJIBFFBWJ226.0[facility] HEALTHHCO3 (Bld) [Moles/Vol]27.5 mmol/L21.0 - 28.0 mmol/LBON [facility] HEALTHOxygen saturation in Blood93 % Low94.0 - 98.0 %[facility] HEALTHPOC yQR411.3[facility]ALTHPOC pH7.372[facility] HEALTHPOC PO270.5LowB[facility] HEALTHPositive Base Excess, Phh3MPC [facility] HEALTHSample SiteRight Radial ArteryB[facility] HEALTHBasic Metabolic Panel w/ Reflex to MGon 38-39-5653Night gap [Moles/Vol]14 mmol/L9 - 17 mmol/LBON [facility] HEALTHCalcium [Mass/Vol]10.3 mg/dL8.6 - 10.4 mg/dLB[facility] HEALTHChloride [Moles/Vol]107 mmol/L98 - 107 mmol/LBON [facility] HEALTHCO2 [Moles/Vol]21 mmol/L20 - 31 mmol/LBON [facility] HEALTHCreatinine [Mass/Vol]1.93 mg/dLHigh0.70 - 1.20 mg/dLB[facility] HEALTHGFR Joneikgb01 mL/minLow>60[facility]ALTH GFR Non- Zzgoxoxt97 mL/minLow>60[facility] HEALTHGFR/1.73 sq M.predicted MDRD (S/P/Bld) [Vol rate/Area][facility] HEALTHGlucose [Mass/Vol]138 mg/qCBkgv30 - 99 mg/dLB[facility] HEALTHInterpretation and review of laboratory resultsAbnormalB[facility] HEALTHPotassium [Moles/Vol]4.4 mmol/L3.7 - 5.3 mmol/LBON [facility] HEALTHSodium [Moles/Vol] 142 mmol/L135 - 144 mmol/LBON [facility] HEALTHUrea nitrogen (BldV) [Mass/Vol]38 mg/dLHigh6 - 20 mg/dLB[facility] HEALTHB[facility] HEALTHCBC with Auto Differentialon [id number] Eos #0.21[facility] HEALTHAbsolute Immature Granulocyte0.03[facility] HEALTHAbsolute Lymph # 0.95LowB[facility] HEALTHAbsolute [place] #0.90[facility] HEALTH Basophils (Bld) [#/Vol]0.05 10*3/uLBON [facility] HEALTHBasophils/100 WBC (Bld)1 %0 - 2 %[facility] HEALTHEosinophils/100 WBC (Bld)2 %1 - 4 %[facility] HEALTHHematocrit (Bld) [Volume fraction]36.9 %Low40.7 - 50.3 %[facility] HEALTHHemoglobin (Bld) [Mass/Vol]12.1 g/dLLow13.0 - 17.0 g/dLB[facility] HEALTHImmature granulocytes/100 WBC (Bld)0 %0[facility] HEALTHInterpretation and review of laboratory resultsAbnormalB[facility] HEALTHLymphocytes/100 WBC (Bld)10 %Low24 - 43 %[facility]ITALH (RBC) [Entitic mass]30.3 pg25.2 - 33.5 pgBON [facility] CENTERHC (RBC) [Mass/Vol]32.8 g/dL28.4 - 34.8 g/dLBON [facility] MEDICAL CENTERV (RBC) [Entitic vol]92.3 fL82.6 - 102.9 fLBON [facility] HEALTHMonocytes/100 WBC (Bld)10 %3 - 12 %[facility] HEALTHNRBC Automated0.00.0 per 100 WBCBON [facility] LORAIN HOSPITALPlatelet distribution width (Bld) [Ratio]12.5 %11.8 - 14.4 %[facility] HEALTHPlatelet mean volume (Bld) [Entitic vol]10.5 fL8.1 - 13.5 fLVALLEYWISE HEALTH [facility]ICAL [facility]ENTER [facility] HEALTHPlatelets (Bld) [#/Vol]403 10*3/uLBON [facility] RBC (Bld) [#/Vol]4.00 10*6/uLLow4.21 - 5.77 m/uLRIVERSIDE BEHAVIORAL HEALTH CENTERSeg Zaenaawzfle14 %High36 - 65 %[facility] HEALTHSegs Absolute7.03[facility] HOSPITALWBC (Bld) [#/Vol]9.2 10*3/uLBON [facility] HEALTHCulture, Blood 1on 50-26-4368Kxxdlsyr identified Cx Nom (Unsp spec) NO GROWTH 5 DAYSB[facility] HEALTHSpecial Crchdxlm81LQ R ARMVALLEYWISE HEALTH [facility] HEALTHSpecimen Description.BLOODB[facility] HEALTHCulture, Body Fluidon 78-11-3932Pfdysjnm identified Cx Nom (Unsp spec)NO GROWTH 6 DAYSB[facility] HEALTHDirect ExamRARE NEUTROPHILSAbnormalVALLEYWISE [facility]ALTH [facility]ENTER [facility]ALTHY HEALTHDirect ExamNO BACTERIA SEENBON [facility] LORAIN HOSPITALDirect ExamGram stain made from cytocentrifuged specimen. Organisms and cells will be concentrated.[facility] HEALTHInterpretation and review of laboratory resultsAbnormalB[facility] HEALTHSpecimen Description.FLUID .PERICARDIAL FLUIDBON [facility]IONAL HOSPITALElectrolyte Panel w/ Reflex to MGon 77-19-1243Qgskk gap [Moles/Vol]11 mmol/L9 - 17 mmol/LBON [facility] HOSPITALChloride [Moles/Vol]106 mmol/L98 - 107 mmol/LBON [facility] HEALTHCO2 [Moles/Vol]26 mmol/L20 - 31 mmol/LBON [facility] HOSPITALPotassium [Moles/Vol] 4.3 mmol/L3.7 - 5.3 mmol/LBON [facility] L[facility] HOSPITALSodium [Moles/Vol]143 mmol/L 135 - 144 mmol/LBON [facility] HOSPITALHIV Screenon [id number] Ag/AbNon-ReactiveNONREACTIVEJOHN RANDOLPH MEDICAL CENTERMRI BRAIN WO CONTRASTon [id number] RIS CONSOLIDATEDPN [facility] Work Phone: MRI BRAIN WO CONTRASTOrdered By: Elias Francis on [id number] [employer] Phone: MRI CERVICAL SPINE WO CONTRASTon [id number] RIS CONSOLIDATEDPN [facility] Work Phone: bON [facility] [employer] Phone: No Panel Informationon [id number] Study observation (narrative)[facility] Work Phone: Interpretation and review of laboratory results AbnormalBON [facility]AL HOSPITALPOCT Glucoseon 68-09-6901Qglhdgq [Mass/Vol]139 mg/tVGuox38 - 100 mg/dLBON [facility] XR CHEST PORTABLEon 64-32-4610SINZ RIS CONSOLIDATEDPN RIS [facility] Work Phone: XR CHEST PORTABLEOrdered By: Elias Dave on [id number] [facility] [employer] Work Phone: Arterial Blood Gas, POCon 23-64-4306Dkkyz TestPositive [facility] UXQPYSHGP385.0[facility]ERY HEALTHHCO3 (Bld) [Moles/Vol] 23.9 mmol/L21.0 - 28.0 mmol/LBON [facility] HEALTHInterpretation and review of laboratory resultsAbnormalB[facility] MERCY HEALTHNegative Base Excess, Art2 [facility] HEALTHO2 Device/Flow/%Adult VentilatorBON [facility] Oxygen saturation in Blood92 %Low94.0 - 98.0 %[facility]ITALPOC pCO2 46.2[facility]OSPITALPOC pH7.323LowBON [facility]OSPITALC PO270.9Low [facility]ALTHY MERCY HEALTHSample SiteRight Radial ArteryBON [facility] Basic Metabolic Panel w/ Reflex to MGon 67-35-5967Zbfvg gap [Moles/Vol]10 mmol/L 9 - 17 mmol/LBON [facility] HEALTHCalcium [Mass/Vol]10.1 mg/dL8.6 - 10.4 mg/dLBON [facility] HEALTHChloride [Moles/Vol]109 mmol/LHigh98 - 107 mmol/L [facility] HEALTHCO2 [Moles/Vol]21 mmol/L20 - 31 mmol/LBON [facility] HEALTHCreatinine [Mass/Vol]1.99 mg/dLHigh0.70 - 1.20 mg/dLB[facility] HEALTHGFR Khvrrnbh41 mL/minLow>60[facility] HEALTHGFR Non- Pwonnjiy47 mL/minLow>60[facility] HEALTHGFR/1.73 sq M.predicted MDRD (S/P/Bld) [Vol rate/Area][facility] HEALTHGlucose [Mass/Vol]83 mg/dL70 - 99 mg/dLB[facility] HEALTHInterpretation and review of laboratory results AbnormalB[facility] HEALTHPotassium [Moles/Vol]4.4 mmol/L3.7 - 5.3 mmol/L [facility] HEALTHSodium [Moles/Vol]140 mmol/L135 - 144 mmol/LBON [facility]ERY HEALTHUrea nitrogen (BldV) [Mass/Vol]36 mg/dLHigh6 - 20 mg/dLBON [facility] HEALTHBON [facility] HEALTHCBC with Auto Differentialon 09-03-2021 Absolute Eos #0.29B[facility] HOSPITALAbsolute Immature Granulocyte0.03[facility] MERCY HEALTHAbsolute Lymph #1.71[facility] MERCY HEALTHAbsolute [place] # 0.99B[facility] HOSPITALBasophils (Bld) [#/Vol]0.04 10*3/uLBON [facility] HEALTHBasophils/100 WBC (Bld)1 %0 - 2 %[facility] HOSPITALEosinophils/100 WBC (Bld)3 %1 - 4 %[facility] HEALTH CENTERHematocrit (Bld) [Volume fraction] 39.7 %Low40.7 - 50.3 %[facility]AVIOR[facility] HEALTH CENTERHemoglobin (Bld) [Mass/Vol]12.2 g/dLLow13.0 - 17.0 g/dLBON [facility]AIN HOSPITALImmature granulocytes/100 WBC (Bld)0 %0BON [facility] HOSPITALInterpretation and review of laboratory results AbnormalBON [facility] HEALTH LORAIN HOSPITALLymphocytes/100 WBC (Bld)19 %Low24 - 43 %[facility]TSM[facility]THH (RBC) [Entitic mass]29.2 pg25.2 - 33.5 pgNAVAL MEDICAL CENTER PORTSMOUTHHC (RBC) [Mass/Vol]30.7 g/dL28.4 - 34.8 g/dLBON DOCTORS HOSPITALV (RBC) [Entitic vol]95.0 fL82.6 - 102.9 fLRIVERSIDE BEHAVIORAL HEALTH CENTER Monocytes/100 WBC (Bld)11 %3 - 12 %R[facility] BEHAVIORAL HEALTH CENTERNRBC Automated0.00.0 per 100 WBCBON SECHOLM[facility] HOSPITALPlatelet distribution width (Bld) [Ratio]13.2 %11.8 - 14.4 %[facility] HEALTHPlatelet mean volume (Bld) [Entitic vol] 10.6 fL8.1 - 13.5 fLVALLEYWISE HEALTH MEDICAL CENTER [facility] HEALTHPlatelets (Bld) [#/Vol]244 10*3/uL [facility] SE[facility] HOSPITALRBC (Bld) [#/Vol]4.18 10*6/uLLow4.21 - 5.77 m/uLRIVERSIDE BEHAVIORAL HEALTH CENTERSeg Benlvtqctfm54 %High36 - 65 %[facility]HAVIOR[facility] HEALTH CENTERSegs Absolute5.81BON [facility] LORAIN HOSPITALWBC ([facility]) [#/Vol]8.9 10*3/uLBON [facility] HOSPITALElectrophoresis Protein, Serumon 09-03-2021 Albumin %53 %45 - 65 %[facility] CENTERAlbumin [Mass/Vol]3.1 g/dLLow3.2 - 5.2 g/dLBON [facility] HEALTHAlpha 1 %7 %High3 - 6 %[facility] Alpha 2 %13 %6 - 13 %[facility]ALTH CENTERAlpha-1-Globulin0.4 g/dL0.1 - 0.4 g/dLBON [facility] LORAIN HOSPITALXPDUXWJaoea-4-Evzfbzoa9.8 g/dL0.5 - 0.9 g/dLBRIVERSIDE REGIONAL MEDICAL CENTERBeta Globulin0.9 g/dL0.5 - 1.1 g/dLBON [facility] HEALTHBeta Lcsesqw79 %11 - 19 %[facility] CENTERFree PSA/Total PSA [Mass fraction] 5.8 g/dLLow6.4 - 8.3 g/dLBRIVERSIDE REGIONAL MEDICAL CENTERGamma Globulin0.7 g/dL0.5 - 1.5 g/dLBON [facility] LORAIN HOSPITALGamma Globulin %11 %9 - 20 %[facility] Interpretation and review of laboratory resultsAbnormalRIVERSIDE BEHAVIORAL [facility]ALTH [facility]ENTER Pathologist Cyto stain Nom (Cvx/Vag) [ID]ELECTRONICALLY SIGNED. ZOE STERN M.D.[facility] HEALTH CENTERProtein Electrophoresis, SerumALBUMIN IS DECREASED. MAY BE OBSERVED WITH HEPATIC DISEASE, PROTEINURIA, MALNUTRITION, ACUTE PHASE RESPONSE, AND HEMODILUTION.[facility]AVIOR[facility] HEALTH CENTERTotal Prot. Sum 5.9 g/dLLow6.3 - 8.2 g/dLBON [facility] LORAIN HOSPITALTotal Prot. Sum,%100 %98 - 102 %[facility] MEDICAL CENTERImmunofixation serum profileon [id number] Cyto stain Nom (Cvx/Vag) [ID]ELECTRONICALLY SIGNED. ZOE STERN M.D.[facility] Montgomeryum IFX InterpIMMUNOFIXATION IS NEGATIVE FOR MONOCLONAL IMMUNOGLOBULIN.[facility] HOSPITALLipaseon 74-23-6312Unyzqo [Catalytic activity/Vol]23 U/L13 - 60 U/L [facility] CENTERNo Panel Informationon [id number] [facility] HOSPITALPOCT Glucoseon 76-13-1986Uexxwqj [Mass/Vol]79 mg/dL74 - 100 mg/dLBON [facility] LORAIN HOSPITALANA SCREEN WITH REFLEXon 09-02-2021 Anti ds DNA1.2<10.0 IU/mLRIVERSIDE BEHAVIORAL HEALTH CENTERENA Antibodies Screen0.1 U/mL <0.7BON [facility] HOSPITALNuclear Ab IF (S) [Titer]NegativeNEGATIVEBON [facility] LORAIN HOSPITALANTI-NEUTROPHIL ANTIBODYon 50-68-2716Vovsqmbhol Ab, FlowNegative NegativeJOHN RANDOLPH MEDICAL CENTERAnti-Neutrophilic Cytoplasmic Antibodyon 78-81-8871RBQG Myeloperoxidase<0.30.0 - 3.5 AU/mLRIVERSIDE BEHAVIORAL HEALTH CENTERANCA Proteinase 30.9 AU/mL0.0 - 2.0 AU/mLRIVERSIDE BEHAVIORAL HEALTH CENTERArterial Blood Gas, POCon 06-60-4103Fayda TestPositiveRIVERSIDE BEHAVIORAL HEALTH CENTERFIO230.0R[facility]ERS[facility] BEHAVIORAL HEALTH CENTERHCO3 (Bld) [Moles/Vol]21.7 mmol/L21.0 - 28.0 mmol/LBON [facility] HOSPITALInterpretation and review of laboratory resultsAbnormalBON [facility]OS[facility]ITALModePRVCBON [facility]OS[facility]ITALNegative Base Excess, Hwg9MoepSXARIVERSIDE BEHAVIORAL HEALTH CENTERO2 Device/Flow/%Adult VentilatorRIVERSIDE BEHAVIORAL HEALTH CENTEROxygen saturation in Blood93 %Low94.0 - 98.0 %[facility] uLY669.6HighBON [facility] pCO2 Rjut34ut HgBON [facility] pH7.258LowB[facility] pH Temp7.25[facility] PO276.2LowBON [facility]KE[facility] CENTERC pO2 Dkkk09mv HgBON [facility] LORAIN HOSPITALPt Temp37.9BON [facility]OSPITALSample SiteRight Radial ArteryBON [facility] LORAIN HOSPITALBasic Metabolic Panel w/ Reflex to MGon 09-02-2021 Anion gap [Moles/Vol]9 mmol/L9 - 17 mmol/LBON [facility] HOSPITALCalcium [Mass/Vol]10.0 mg/dL8.6 - 10.4 mg/dLBON [facility] L[facility]AIN HOSPITALChloride [Moles/Vol] 110 mmol/LHigh98 - 107 mmol/LBON [facility] L[facility] HOSPITALCO2 [Moles/Vol]20 mmol/L20 - 31 mmol/LBON [facility] HOSPITALCreatinine [Mass/Vol]1.86 mg/dLHigh0.70 - 1.20 mg/dLBON [facility] LORAIN HOSPITALGFR Gvgxwrtf75 mL/minLow>60BON [facility] HOSPITALGFR Non- Xqyfujml56 mL/minLow>60[facility] GFR/1.73 sq M.predicted MDRD (S/P/Bld) [Vol rate/Area][facility] Glucose [Mass/Vol]84 mg/dL70 - 99 mg/dLBON [facility] LORAIN HOSPITALPotassium [Moles/Vol]4.7 mmol/L3.7 - 5.3 mmol/LBON [facility] LORAIN HOSPITALSodium [Moles/Vol] 139 mmol/L135 - 144 mmol/LBON [facility] LORAIN HOSPITALUrea nitrogen (BldV) [Mass/Vol]31 mg/dLHigh6 - 20 mg/dLBON [facility] LORAIN HOSPITALC3 Complementon 32-29-4946Lcwrcqnilv C3183 mg/xRIpar63 - 180 mg/dLBON [facility] Interpretation and review of laboratory resultsAbnormalBON [facility] C4 Complementon 05-81-2299Qlccmxdnyu C429 mg/dL10 - 40 mg/dLBON [facility]OSPITALCBC with Auto Differentialon 16-64-8010Clydlzku Eos #0.34BON [facility]OSPITALAbsolute Immature Granulocyte0.05BON [facility] HOSPITALAbsolute Lymph # 2.08BON [facility] HEALTHAbsolute [place] #1.34HighBON [facility] Basophils (Bld) [#/Vol]0.04 10*3/uLBON [facility] HEALTHBasophils/100 WBC (Bld)0 %0 - 2 %BON [facility]PITALEosinophils/100 WBC (Bld)3 %1 - 4 %BON [facility] HOSPITALHematocrit (Bld) [Volume fraction]38.7 %Low40.7 - 50.3 %BON [facility]OSPITALHemoglobin (Bld) [Mass/Vol]11.5 g/dLLow13.0 - 17.0 g/dLBON SECHOLM[facility] HOSPITALImmature granulocytes/100 WBC (Bld)1 %Lsfj7GQY [facility]OSPITALInterpretation and review of laboratory resultsAbnormalBON SECHOLM[facility] HOSPITALLymphocytes/100 WBC (Bld)19 %Low24 - 43 %[facility]H (RBC) [Entitic mass]28.7 pg25.2 - 33.5 pgBON [facility] CENTERHC (RBC) [Mass/Vol]29.7 g/dL28.4 - 34.8 g/dLBON [facility]ICAL CENTERV (RBC) [Entitic vol]96.5 fL82.6 - 102.9 fLBON [facility]OSPITALMonocytes/100 WBC (Bld)12 %3 - 12 %DVAION [facility] HOSPITALNRBC Automated0.00.0 per 100 WBCVALLEYWISE HEALTH [facility] SECHOLMES [facility] HOSPITALPlatelet distribution width (Bld) [Ratio]13.5 %11.8 - 14.4 %BON [facility] HEALTHPlatelet mean volume (Bld) [Entitic vol]10.7 fL8.1 - 13.5 fLBON [facility] HEALTHPlatelets (Bld) [#/Vol]228 10*3/uLBON [facility] RBC (Bld) [#/Vol]4.01 10*6/uLLow4.21 - 5.77 m/uLBON [facility] HOSPITALSeg Hzfpjtwfgdb71 %36 - 65 %B[facility] HEALTHSegs Absolute7.14BON [facility] HOSPITALWBC (Bld) [#/Vol]11.0 10*3/uLBON SECST. [facility] MEDICAL CENTERCreatinine, Random Urineon 65-53-2695Fztnhmecme, Ur129.7 mg/dL39.0 - 259.0 mg/dLBON [facility] HOSPITALCulture, Respiratoryon 85-93-6720Ohqseerc identified Cx Nom (Unsp spec)METHICILLIN RESISTANT STAPHYLOCOCCUS AUREUS HEAVY GROWTHAbnormalBON [facility] HOSPITALBacteria identified Cx Nom (Unsp spec) NORMAL RESPIRATORY JAMES LIGHT GROWTHBON [facility]OSPITALDirect Exam>10, <25 NEUTROPHILS/LPFBON [facility]OSPITALDirect Exam< 10 EPITHELIAL CELLS/LPFBON [facility]OSPITALDirect ExamPositiveAbnormalRIVERSIDE BEHAVIORAL HEALTH CENTERDirect ExamMIXED BACTERIAL MORPHOTYPES ALSO PRESENT ON GRAM STAIN.AbnormalBON [facility]OSPITALInterpretation and review of laboratory resultsAbnormalRIVERSIDE BEHAVIORAL HEALTH CENTERSpecimen Description.ENDOTRACHEALBON SECST. FRANCIS MEDICAL CENTEREosinophils, Urineon 15-30-4701Dzuydnhogz, UrNONE SEENNONE SEENBON [facility]OSPITALHepatitis Panel, Acuteon 09-02-2021 HAV IgM IA Qn (S)Non-ReactiveNONREACTIVEFauquier Health System B Core Ab, IgMNon-ReactiveNONREACTIVERIVERSIDE BEHAVIORAL HEALTH CENTERHepatitis B Surface Ag Non-ReactiveNONREACTIVERIVERSIDE BEHAVIORAL HEALTH CENTERHepatitis C AbNon-Reactive NONREACTIVEBON LE[facility]ADWO[facility] REGIONAL HOSPITALKappa/Lambda Quantitative Free Light Chains, Serumon 35-36-6029Opyo [place]/Lambda Ratio0.77R[facility]ERSIDE [facility]IOR[facility] HEALTH CENTERInterpretation and review of laboratory resultsAbnormalRIVERSIDE BEHAVIORAL HEALTH CENTERKappa Free Light Chains QNT5.26 mg/dLHigh0.37 - 1.94 mg/dL R[facility]ALTH CENTERLambda Free Light Chains QNT6.82 mg/dLHigh0.57 - 2.63 mg/dLBON [facility]ITALNo Panel Informationon [id number] [facility]OSPITALRadiology Study observation (narrative)[facility] Work Phone: bON [facility]AIN HOSPITALInterpretation and review of laboratory resultsAbnormalCOTEAU DES PRAIRIES HOSPITALC Glucose Fingerstickon 09-02-2021 Glucose [Mass/Vol]87 mg/dL75 - 110 mg/dLBON [facility] HOSPITALGlucose [Mass/Vol]89 mg/dL75 - 110 mg/dLBON [facility] HOSPITALPOCT Glucoseon 94-05-9202Asdjmnu [Mass/Vol]80 mg/dL74 - 100 mg/dLBON [facility] LORAIN HOSPITALPTH, Intacton 36-44-3423Qkoldffhuuqlqr and review of laboratory resultsAbnormBon Secours Maryview Medical CenterPth Izerot911.2 pg/mLHigh 15.0 - 65.0 pg/mLBON [facility]WO[facility] HOSPITALPhosphoruson 04-21-6082Qpwxkgcgd [Mass/Vol]3.2 mg/dL2.5 - 4.5 mg/dLBON [facility] Protein, urine, randomon 48-99-1333Bvsedsv (U) [Mass/Vol]97 mg/dLBON [facility] LORAIN HOSPITALRheumatoid Factoron 56-27-7201Qvefcbbffi Factor<10<14 IU/mLJOHN RANDOLPH MEDICAL CENTERTriglycerideon 09-02-2021 Triglyceride [Mass/Vol]202 mg/dLHigh<150BON [facility] HOSPITALVancomycin Level, Randomon 52-55-7376Eevvcorcgb Rm18.3 ug/mLJOHN RANDOLPH MEDICAL CENTERVitamin D 25 Hydroxyon 98-77-7274Wfkdcfgvnotpba and review of laboratory resultsAbnormBon Secours Maryview Medical CenterVit D, 25-Hydroxy9.5 ng/mL Low>29.9BON [facility] HOSPITALXR ABDOMEN FOR NG/OG/NE TUBE PLACEMENTon 32-18-1104FAZW RIS CONSOLIDATEDMHPN RIS CONSOLIDATEDRIVERSIDE BEH[facility]IORAL [facility] Work Phone: XR ABDOMEN FOR NG/OG/NE TUBE PLACEMENTOrdered By: Farhan Gaines on 68-06-2405FPK [facility] Work Phone: XR CHEST PORTABLEon 13-82-8237PAJS RIS CONSOLIDATED MHPN RIS CONSOLIDATEDBON [employer] [facility] Work Phone: bON [facility] Work Phone: aLDOSTERONEon 79-07-5411Xuhekcggdam2.3 ng/dLBON SECL[facility] HEALTHBON SECHOLMES COUNTY JOEL POMERENE MEMORIAL HOSPITALArterial Blood Gas, POCon 09-01-2021 Dwight TestNOT APPLICABLEBON SECLOUISIANA [facility]ART [facility]OSPITAL TDQBJNIUS882.0BON [employer] [facility] HCO3 (Bld) [Moles/Vol]19.9 mmol/LLow21.0 - 28.0 mmol/LBON [facility] OF AVONDALESpinX Technologies [facility] CENTERCV-Sight HEALTH Interpretation and review of laboratory resultsAbnormalBON SECSpin[employer] Technologies [facility] CENTERCV-Sight HEALTH ModePRVCBON SECHOLMES COUNTY JO[facility]OM[facility]IAL HOSPITALNegative Base Excess, Rbm4AzrsRVK SECSpinX Technologies [facility] CENTERCV-Sight MER[facility] HEALTHO2 Device/Flow/%Adult VentilatorBON SECHOLMES COUNTY JO[facility]OM[facility] MEM[facility]IAL HOSPITALOxygen saturation in Blood97 %94.0 - 98.0 %BON SECLIFEPOINT HEALTHCV-Sight [facility] CENTERC dNE963.2LowBON SECLIFEPOINT HEALTHCV-Sight [facility]ALTHPOC pH7.373BON SECLIFEPOINT HEALTHCV-Sight [facility]ALTHPOC PO289.0BON SECEvino [facility] HEALTHSample SiteArterial LineBON CEDARS-SINAI MEDICAL CENTERCV-Sight MERCY HEALTHBasic Metabolic Panel w/ Reflex to MGon 50-05-2864Jwxuw gap [Moles/Vol]10 mmol/L9 - 17 mmol/LBON SECEvino HEALTHCalcium [Mass/Vol]9.3 mg/dL8.6 - 10.4 mg/dLBON [employer]Spin[employer] [facility] Chloride [Moles/Vol]111 mmol/LHigh98 - 107 mmol/LBON SECEvino HEALTHCO2 [Moles/Vol]19 mmol/LLow20 - 31 mmol/LBON SECE[facility]ino HEALTHCreatinine [Mass/Vol]1.71 mg/dLHigh0.70 - 1.20 mg/dLBON SECEvino HEALTHGFR Hhvywhmk13 mL/minLow>60BON SECE[facility]ino HEALTHGFR Non- Obxaxpio54 mL/min Low>60BON SECOURS [employer] HEALTHGFR/1.73 sq M.predicted MDRD (S/P/Bld) [Vol rate/Area]BON SEC[facility]RS [facility]ENTERY HEALTHGlucose [Mass/Vol]102 mg/yZVjkx60 - 99 mg/dL BON [facility] CENTERY HEALTHPotassium [Moles/Vol]4.2 mmol/L3.7 - 5.3 mmol/LBON SECOURS [facility] HEALTHSodium [Moles/Vol]140 mmol/L135 - 144 mmol/LBON SEC[facility]RS [facility] HEALTHUrea nitrogen (BldV) [Mass/Vol]22 mg/dLHigh6 - 20 mg/dLBON SECOURS [facility]ENTERY [facility] HEALTHCBC with Auto Differentialon 48-38-9896Vqxpfwum Eos #0.22BON [facility] MER[facility] HEALTHAbsolute Immature Granulocyte<0.03BON [facility] MER[facility] HEALTHAbsolute Lymph #1.65BON [facility] HEALTHAbsolute [place] #0.85BON [facility]ALTH Basophils (Bld) [#/Vol]0.03 10*3/uLBON SEC[facility]RS [facility] HEALTHBasophils/100 WBC (Bld)0 %0 - 2 %BON SECOURS [facility] HOSPITALEosinophils/100 WBC (Bld)2 %1 - 4 %BON SEC[facility] HOSPITALHematocrit (Bld) [Volume fraction]33.8 %Low40.7 - 50.3 %BON SEC[facility] HOSPITALHemoglobin (Bld) [Mass/Vol]10.9 g/dLLow13.0 - 17.0 g/dLBON SECOURS [facility] HOSPITALImmature granulocytes/100 WBC (Bld)0 %0BON SECOURS [facility]OSPITALInterpretation and review of laboratory resultsAbnormalBON SECOURS [facility] FL[facility] HOSPITALLymphocytes/100 WBC (Bld)18 %Low24 - 43 %BON SECAD[facility] REGIONAL MEDICAL CENTERH (RBC) [Entitic mass]28.6 pg25.2 - 33.5 pgBON SECOURS [facility] CENTERHC (RBC) [Mass/Vol]32.2 g/dL28.4 - 34.8 g/dLBON SECOURS [facility]INT MEDICAL CENTERV (RBC) [Entitic vol]88.7 fL82.6 - 102.9 fLBON SECOURS [facility] HEALTHMonocytes/100 WBC (Bld)9 %3 - 12 %BON SEC[facility] PaySimpleY HEALTHNRBC Automated0.00.0 per 100 WBCBON SECOURS [facility] HEALTHPlatelet distribution width (Bld) [Ratio]13.5 %11.8 - 14.4 %BON [facility] HEALTHPlatelet mean volume (Bld) [Entitic vol]10.8 fL8.1 - 13.5 fLBON SECOURS MERCY HEALTHPlatelets (Bld) [#/Vol]212 10*3/uLBON SECMARIA ELENA PaySimpleJed HEALTH RBC (Bld) [#/Vol]3.81 10*6/uLLow4.21 - 5.77 m/uLBON SECMARIA ELENA MERCY HEALTHSeg Fmtrwbwcfpk25 %High36 - 65 %B[facility] HEALTHSegs Absolute6.63BON SEC[facility]RS TONEY HEALTHWBC (Bld) [#/Vol]9.4 10*3/uLBON SECOURS MERCY HEALTHBON SECMARIA ELENA PaySimpleY HEALTHEKG 12 LeadOrdered By: Kathy Shah on 17-95-1507Vglksa Difa322XNF BON SECAllen ToursY HEALTH Work Phone: p-R Vzdstztg036 msBON SECAllen [facility]Y HEALTH Work Phone: Q-T Abjgggth701 msBON SECAllen ToursY HEALTH Work Phone: QRS Wmcrjwli76 msBON SECOURS PaySimple[facility] HEALTH Work Phone: QTc Calculation (Bazett)471 msBON SECOURS PaySimpleY HEALTH Work Phone: r [id number] SECAllen ToursY HEALTH Work Phone: T [place]-24degreesBON SECOURS PaySimpleY HEALTH Work Phone: Ventricular [id number] SECAllen ToursY HEALTH Work Phone: bON [facility] Work Phone: eKG 12 Leadon 36-32-3733DSSQ STV MUSEBON [facility] Work Phone: METANEPHRINES PLASMA FREEon 16-23-9164Ammfuxdeiviiax and review of laboratory resultsAbnormalBON SECOURS PaySimpleY HEALTHMetaneph/Plasma InterpSee NoteBON SECAllen ToursCV-Sight MERCY HEALTHMetanephrine0.18 nmol/L0.00 - 0.49 nmol/L BON [facility] HOSPITALNormetanephrine0.92 nmol/LHigh0.00 - 0.89 nmol/LBON SECST. FRANCIS MEDICAL CENTERMRI ABDOMEN WO CONTRASTon 09-01-2021 MHPN RIS CONSOLIDATEDMHPN RIS CONSOLIDATEDBON [employer] [facility] Work Phone: radiology Study observation (narrative)BON [facility] OF AVONDALEFrensenius Vascular Care Work Phone: MRI ABDOMEN WO CONTRASTOrdered By: Ariel Ortiz on 74-19-3656PVG [facility]OSP[facility] OF AVONDALESpinX Technologies [facility] CENTERiGlue Work Phone: Mycoplasma pneumoniae antibody, IgMon 09-01-2021 Mycoplasma pneumo IgM0.33<0.91BON [facility]OSPITALNo Panel Informationon 60-18-9203MHT [facility] WurlInterpretation and review of laboratory resultsAbnormalJOHN RANDOLPH MEDICAL CENTER BON [facility]INAI MEDICAL CENTERCV-Sight [facility] HEALTHPOCT Glucoseon 78-94-4825Ovgcgaw [Mass/Vol]91 mg/dL74 - 100 mg/dLBON CEDARS-SINAI MEDICAL CENTERiGlueRENINon 12-83-0663Zyboo Igvocupc7ms/mL/hrSHAW HOSPITALSpinX Technologies [facility] CENTERCV-Sight MERCY HEALTHRenin Activity6.3ng/mL/hrSHAW HOSPITALSpinX Technologies [facility] Triglycerideon 17-68-0789Kdzgugakemwm [Mass/Vol]178 mg/dLHigh<150BON [facility] HOSPITALVancomycin Level, Randomon 35-19-1639Bqvalddsuw Rm17.8 ug/mLBON [facility]AD-[facility]WOOD [facility]AL HOSPITALArterial Blood Gas, POCon 08-31-2021 Dwight TestNOT APPLICABLEBON CED[facility]-SINAI MEDICAL CENTERCV-Sight HWVJQZVSQ546.0BON [facility] HCO3 (Bld) [Moles/Vol]22.1 mmol/L21.0 - 28.0 mmol/LBON CLE[facility]KY [facility]OS[facility] OF AVONDALESpinX Technologies [facility] Interpretation and review of laboratory resultsAbnormBon Secours Maryview Medical Center ModePRVCBON [facility] HOSPITALNegative Base Excess, Pgw1PCY [facility] MEDICAL CENTERUC MEDICAL CENTERO2 Device/Flow/%Adult VentilatorBON [facility] L[facility] HOSPITALOxygen saturation in Blood92 %Low94.0 - 98.0 %BON [facility] CENTERC hIW513.3BON SECLAKEHEALTH BEACHWOOD MEDICAL CENTERC pH7.392BON [facility]TER[facility] MEDICAL CENTERC PO265.3LowBON [facility] L[facility]AIN HOSPITALSample SiteArterial LineBON [facility] HOSPITALBasic Metabolic Panel w/ Reflex to MGon 80-79-1433Opeut gap [Moles/Vol]10 mmol/L9 - 17 mmol/LBON [facility] HOSPITALCalcium [Mass/Vol]9.0 mg/dL8.6 - 10.4 mg/dLBON [facility] Chloride [Moles/Vol]110 mmol/LHigh98 - 107 mmol/LBON [facility] LOR[facility] HOSPITALCO2 [Moles/Vol]20 mmol/L20 - 31 mmol/LBON [facility] HOSPITALCreatinine [Mass/Vol] 1.77 mg/dLHigh0.70 - 1.20 mg/dLBON [facility] HOSPITALGFR Qrmlghkw75 mL/minLow>60BON [facility] HOSPITALGFR Non- Uzncwwgj57 mL/minLow>60BON [facility] HOSPITALGFR/1.73 sq M.predicted MDRD (S/P/Bld) [Vol rate/Area][facility] CENTERGlucose [Mass/Vol]91 mg/dL70 - 99 mg/dLBON [facility] HOSPITALInterpretation and review of laboratory resultsAbnormalBON [facility] HOSPITALPotassium [Moles/Vol]3.9 mmol/L3.7 - 5.3 mmol/LBON [facility] Sodium [Moles/Vol]140 mmol/L135 - 144 mmol/LBON [facility] LORAIN HOSPITALUrea nitrogen (BldV) [Mass/Vol]21 mg/dLHigh6 - 20 mg/dLBON SECST. FRANCIS MEDICAL CENTERCBC with Auto Differentialon 72-12-8261Fzeklntf Eos #0.14BON [facility] HOSPITALAbsolute Immature Granulocyte0.04BON [facility] Absolute Lymph #1.91BON [facility] HOSPITALAbsolute [place] #1.10BON [facility] HOSPITALBasophils (Bld) [#/Vol]0.04 10*3/uLBON [facility] HEALTHBasophils/100 WBC (Bld)0 %0 - 2 %B[facility] HEALTHEosinophils/100 WBC (Bld)1 %1 - 4 % BON [facility] HEALTHHematocrit (Bld) [Volume fraction]33.8 %Low40.7 - 50.3 % BON SECHOLMES COUNTY JOEL [facility]OMERENE MEMORIAL HOSPITALHemoglobin (Bld) [Mass/Vol]11.0 g/dLLow13.0 - 17.0 g/dL BON SECOURS [facility]OSPITALImmature granulocytes/100 WBC (Bld)0 %0BON [facility] HEALTHInterpretation and review of laboratory resultsAbnormalBON SECHOLM[facility] JO[facility] MEMORIAL HOSPITALLymphocytes/100 WBC (Bld)16 %Low24 - 43 %BON [facility]ORS HOSPITALH (RBC) [Entitic mass]28.7 pg25.2 - 33.5 pgBON SECADAMS COUNTY REGIONAL MEDICAL CENTERHC (RBC) [Mass/Vol]32.5 g/dL28.4 - 34.8 g/dLBON SECAD[facility] COUNTY REGIONAL MEDICAL CENTERV (RBC) [Entitic vol]88.3 fL82.6 - 102.9 fLVALLEYWISE HEALTH MEDICAL [facility]ENTER [facility] HEALTHMonocytes/100 WBC (Bld)9 %3 - 12 %DAVION SECL[facility]ISIA[facility]ART [facility]OSPITAL HEALTHNRBC Automated0.00.0 per 100 WBCBON [facility] HEALTHPlatelet distribution width (Bld) [Ratio]13.5 %11.8 - 14.4 %B[facility] HEALTHPlatelet mean volume (Bld) [Entitic vol]10.6 fL8.1 - 13.5 fLBON SECOURS [facility] HEALTHPlatelets (Bld) [#/Vol]195 10*3/uLBON [facility] HEALTH RBC (Bld) [#/Vol]3.83 10*6/uLLow4.21 - 5.77 m/uLBON [facility] HEALTHSeg Xuyrkvqpkdz85 %High36 - 65 %BON SEC[facility]RS [facility]ERY HEALTHSegs Absolute8.64HighBON [facility]RS [facility] HEALTHWBC (Bld) [#/Vol]11.9 10*3/uLHighBON [facility] HEALTHBON [facility] HEALTHCulture, Blood 1on 24-25-0422Vdirlgaj identified Cx Nom (Unsp spec)PositiveAbnormBon Secours Maryview Medical CenterBacteria identified Cx Nom (Unsp spec)DIRECT GRAM STAIN FROM BOTTLE: GRAM POSITIVE COCCI IN [facility] HOSPITALBacteria identified Cx Nom (Unsp spec)Detected: Streptococcus species (not S. agalactiae (Group B), S. pneumoniae, or S. pyogenes (Group A)) Culture Results to Follow Methodology- Polymerase Chain Reaction (PCR)[facility] CENTERBacteria identified Cx Nom (Unsp spec) STREPTOCOCCI, BETA HEMOLYTIC GROUP CAbnormBon Secours Maryview Medical CenterBacteria identified Cx Nom (Unsp spec)(NOTE) Direct Gram Stain from bottle and Polymerase Chain Reaction (PCR) results called to and readback by: BAUTISTA Greenfield at 0425 on 08/31/21[facility] HEALTH CENTERInterpretation and review of laboratory results [facility] HospitalSpecial Pocmorii92LC R WRISTRIVERSIDE BEHAVIORAL HEALTH CENTERSpecimen Description.BLOODJOHN RANDOLPH MEDICAL [facility]ENTER EKG 12 Leadon 27-66-7983Ozvyov Hpil072IXLJOMHENRICO DOCTORS' [facility] Work Phone: p [id number]'s [facility] Work Phone: p-R Kywmqivo494 [facility] Work Phone: Q-T Ignfzrym928 [facility] Work Phone: QRS Yyidfdem45 [facility] Work Phone: QTc Calculation (Bazett)463 [facility] Work Phone: r Cjeb08xokkjyoRIARiverside Health System Work Phone: T [id number]'s [facility] Work Phone: Ventricular Ukhm964NZOLFDBALLAD HEALTH Wurl Work Phone: MHPN STV [facility] Wurl Work Phone: bCARILION GILES MEMORIAL HOSPITALY Wurl Work Phone: No Panel Informationon 58-92-0506WIY [facility]OSPITAL OF AVONDALESpinX Technologies [facility]C Glucose Fingerstickon 60-23-0256Giducvf [Mass/Vol]76 mg/dL75 - 110 mg/dLBON LEAD-[facility]ADWOOD REGIONAL HOSPITALPOCT Glucoseon 08-31-2021 Glucose [Mass/Vol]81 mg/dL74 - 100 mg/dLBON [facility] L[facility]AIN HOSPITALXR CHEST PORTABLEon 98-11-2957RPWD RIS CONSOLIDATEDMHPN RIS CONSOLIDATEDRIVERSIDE BEH[facility]IORAL [facility] Work Phone: radiology Study observation (narrative)[facility] [employer] Wurl Work Phone: xr CHEST PORTABLEOrdered By: Usha Ojeda on 13-32-6833ZNISENTARA PR[facility]ESS [facility] Wurl Work Phone: Hepatic Function Panelon 28-87-7661Tfzbysw [Mass/Vol]3 g/dLLow3.5 - 5.2 g/dLBON [facility] LOR[facility] HOSPITALAlbumin/Globulin [Mass ratio]1.0 {ratio}RIVERSIDE BEHAVIORAL HEALTH CENTERALP (Bld) [Catalytic activity/Vol]62 U/L40 - 129 U/LBON [facility] L[facility]AIN HOSPITALALT [Catalytic activity/Vol]13 U/L5 - 41 U/LBON [facility] HE[facility] LOR[facility] HOSPITALAST [Catalytic activity/Vol]20 U/L<40BON [facility] L[facility] HOSPITALBilirubin [Mass/Vol]0.95 mg/dL0.3 - 1.2 mg/dLBON [facility] Bilirubin, Indirect0.79 mg/dL0.00 - 1.00 mg/dLBON [facility] Bilirubin.indirect [Mass/Vol]0.16 mg/dL<0.31BON CLE[facility]KY [facility]OSP[facility] OF AVONDALESpinX Technologies [facility]OSPITALFree PSA/Total PSA [Mass fraction]5.9 g/dLLow6.4 - 8.3 g/dLBON [facility] Interpretation and review of laboratory resultsAbnormBon Secours [facility] DNA Probe, Nasalon 01-90-8911Gfpylgjekaghxj and review of laboratory resultsAbnormalBON [facility]OURS MERCY HEALTHMRSA, DNA, Nasal POSITIVE: MRSA DNA detected by nucleic acid amplification.AbnormalNEGATIVEBON [facility] L[facility] HOSPITALSpecimen Description.NASAL SWABBON LEAD-DEADWOOD REGIONAL HOSPITALRespiratory Panel, Molecular, with COVID-19 (Restricted: peds pts or suitable admitted adults)on 59-28-2884Lvahautc Description .NASOPHARYNGEAL SWABBON MER[facility] LORAIN HOSPITALUS RETROPERITONEAL LIMITEDon 47-52-2649UPDB RIS CONSOLIDATEDMHPN RIS CONSOLIDATEDRIVERSIDE BEH[facility]IOR[facility] Work Phone: US RETROPERITONEAL LIMITEDOrdered By: Desire Mayberry on 13-88-7661EQA [facility] Work Phone: vl RENAL ARTERIAL DUPLEX COMPLETEon 48-64-0312YPQM STV CPACSRIVERSIDE BEHAVIORAL HEALTH CENTER Work Phone: vl RENAL ARTERIAL DUPLEX COMPLETEOrdered By: Unknown Result on 67-69-4280UEZRIVERSIDE REGIONAL MEDICAL CENTERTroponin I High Sensitivityon 55-03-7555Jodpbwpp I High Mepcjdwcwaz84 pg/mLOff scale high0-20T[place] HospitalComment on above:Result Comment: Results called at 2304 on 08/28/21 PERFORMED BY: [place] [address] PATHOLOGIST COOK PRESSURE MOHINDER MARKS M.D.Performed By: #### HS TROP #### [place] [address] USAActivated partial thromboplastin time (aPTT) in platelet poor plasma by coagulation aOrdered By: Basilio Sam on 57-14-1409fRMG Coag (PPP) [Time]33.0 s25.1-36.5FMetroHealth Cleveland Heights Medical CenterAlbumin [Mass/volume] in Serum or PlasmaOrdered By: Basilio Sam on 81-96-0409Ujhbjjg [Mass/Vol]3.2 g/dL3.2-5.5FMetroHealth Cleveland Heights Medical CenterB-Type Natriuretic Peptideon 64-07-0934Zezikgqnazx peptide B (Bld) [Mass/Vol]300.0 pg/mLHigh5-100 [place] HospitalComment on above:Result Comment: PERFORMED BY: [facility] [address] [place] [address] PATHOLOGIST COOK PRESSURE MOHINDER MARKS M.D.Performed By: #### CBC, PT, PTT, CMP, LIPASE, BNP, HS TROP #### [facility] [address] [id number] USABasophils Auto (Bld) [#/Vol]Ordered By: Basilio Sam on 03-10-4708Etzaabrhs (Bld) [#/Vol]0.1 10*3/uL0.0-0.2FMetroHealth Cleveland Heights Medical CenterBasophils/100 WBC Auto (Bld)Ordered By: Basilio Sam on 08-28-2021 Basophils/100 WBC (Bld)0.6 %[facility]edo HospitalBlood hemoglobin measurement (mass/volume)Ordered By: Basilio Sam on 74-51-7433Ghjenxfbny (Bld) [Mass/Vol]13.8 g/dL13.0-17.0T[facility] HospitalBlfairview range medical center leukocytes automated count (number/volume)Ordered By: Basilio Sam on 32-32-6108YHY (Bld) [#/Vol]8.9 10*3/uL4.5-11.0T[facility]edo HospitalCOVID-19 Antigenon 32-14-7005LOAQF-19 AntigenHealthcare Worker?: N Reference Range: Negative Negative [...] developed and its performance characteristic determined by [employer] and validated at [facility]. This test has not been FDA cleared [...] for SARS Antigen by JAYCEE PERFORMED BY: [place] [address] PATHOLOGIST COOK PRESSURE MOHINDER MARKS M.D.NormalToledo HospitalComment on above: Performed By: #### COVID-19 ANN, SOFIANEG, COVID 19 [facility] [place] #### [place] [address] USACOVID-19 [facility] [place] 67-95-1652YSZU-CoV-2 (COVID-19) RNA VIK+probe Ql (Unsp spec)NegativeNormalNegativeToledo Hospital Comment on above:Order Comment: Healthcare Worker?: NResult Comment: Testing for SARS-CoV-2 by RT-PCR This test was developed and its performance characteristics determined by [employer] and validated at the [facility]. This test has not been FDA cleared [...] is terminated or revoked sooner. PERFORMED BY: [place] [address] PATHOLOGIST COOK PRESSURE MOHINDER MARKS M.D.Performed By: #### COVID-19 ANN, SOFIANEG, COVID 19 [facility] [place] #### [place] [address] USACOVID-19 SOFIAOrdered By: Basilio Sam on 08-28-2021 SARS-CoV+SARS-CoV-2 (COVID-19) Ag IA.rapid Ql (Resp)NegativeNegativeToledo HospitalComment on above:This is a duplicate Ann SARS Antigen (JAYCEE) result to be used for statistical tracking purpose only.Complete Blood Count Auto Diffon 46-29-6189Qasnvwpsf (Bld) [#/Vol]0.1 10*3/uLNormal0.0-0.2 [place] HospitalComment on above:Result Comment: PERFORMED BY: [place] [address] PATHOLOGIST COOK PRESSURE MOHINDER MARKS M.D.Performed By: #### CBC, PT, PTT, CMP, LIPASE, BNP, HS TROP #### [place] [address] USABasophils/100 WBC (Bld)0.6 %Normal.T[facility] HospitalComment on above:Performed By: #### CBC, PT, PTT, CMP, LIPASE, BNP, HS TROP #### [place] [address] USAEosinophils (Bld) [#/Vol]0.1 10*3/uLNormal0.0-0.45 [place] HospitalComment on above:Performed By: #### CBC, PT, PTT, CMP, LIPASE, BNP, HS TROP #### [place] [address] USAEosinophils/100 WBC (Bld)1.1 %Normal.[facility] HospitalComment on above:Performed By: #### CBC, PT, PTT, CMP, LIPASE, BNP, HS TROP #### [place] [address] USAErythrocyte distribution width (RBC) [Ratio]13.5 %Normal 12.0-14.8T[facility]edo HospitalComment on above:Performed By: #### CBC, PT, PTT, CMP, LIPASE, BNP, HS TROP #### [place] [address] USAHematocrit (Bld) [Volume fraction]40.3 %Xrzyoa82.8-50.0 [facility] HospitalComment on above:Performed By: #### CBC, PT, PTT, CMP, LIPASE, BNP, HS TROP #### [place] [address] USAHemoglobin (Bld) [Mass/Vol]13.8 g/iQWuxryh41.0-17.0 [place] HospitalComment on above:Performed By: #### CBC, PT, PTT, CMP, LIPASE, BNP, HS TROP #### [place] [address] USALymphocytes (Bld) [#/Vol]2.8 10*3/uLNormal1.00-4.8 [place] HospitalComment on above:Performed By: #### CBC, PT, PTT, CMP, LIPASE, BNP, HS TROP #### [place] [address] USALymphocytes/100 WBC (Bld)31.4 %Normal.T[place] HospitalComment on above:Performed By: #### CBC, PT, PTT, CMP, LIPASE, BNP, HS TROP #### [place] [address] USAMCH (RBC) [Entitic mass]28.9 rfBdymlk97.5-35.2FMetroHealth Cleveland Heights Medical CenterComment on above:Performed By: #### CBC, PT, PTT, CMP, LIPASE, BNP, HS TROP #### [facility] [address] [place] [address] USAMCV (RBC) [Entitic vol]84.9 gHCyzsph24.5-101T[place]edo HospitalComment on above:Performed By: #### CBC, PT, PTT, CMP, LIPASE, BNP, HS TROP #### [facility] [address] [place] [address] USAMean Corpuscular HGB Conc34.1 g/tNWwytdq90.5-35.6FMetroHealth Cleveland Heights Medical CenterComment on above:Performed By: #### CBC, PT, PTT, CMP, LIPASE, BNP, HS TROP #### [facility] [address] [place] [address] USAMonocytes (Bld) [#/Vol]0.6 10*3/uLNormal0.0-0.8T[facility]edo HospitalComment on above:Performed By: #### CBC, PT, PTT, CMP, LIPASE, BNP, HS TROP #### [facility] [address] [place] [address] USAMonocytes/100 WBC (Bld)6.5 %Normal.Toledo HospitalComment on above:Performed By: #### CBC, PT, PTT, CMP, LIPASE, BNP, HS TROP #### [place] [address] USANeutrophils (Bld) [#/Vol]5.4 10*3/uLNormal1.8-7.7FMetroHealth Cleveland Heights Medical CenterComment on above:Performed By: #### CBC, PT, PTT, CMP, LIPASE, BNP, HS TROP #### [facility] [address] [place] [address] USANeutrophils/100 WBC (Bld)60.4 %Normal.[facility] HospitalComment on above:Performed By: #### CBC, PT, PTT, CMP, LIPASE, BNP, HS TROP #### [place] [address] USANucleated RBC/100 WBC (Bld) [Ratio]0.1 %Normal0-0.5 [facility] HospitalComment on above:Performed By: #### CBC, PT, PTT, CMP, LIPASE, BNP, HS TROP #### [facility] [address] [place] [address] USAPlatelet mean volume (Bld) [Entitic vol]7.9 fLNormal 6.6-10.1FMetroHealth Cleveland Heights Medical CenterComment on above:Performed By: #### CBC, PT, PTT, CMP, LIPASE, BNP, HS TROP #### [place] [address] USAPlatelets (Bld) [#/Vol]277 10*3/iZSdempl503-235GhxnklmtgToledo HospitalComment on above:Performed By: #### CBC, PT, PTT, CMP, LIPASE, BNP, HS TROP #### [place] [address] USARBC (Bld) [#/Vol]4.75 10*6/uLNormal3.90-5.60T[facility] HospitalComment on above:Performed By: #### CBC, PT, PTT, CMP, LIPASE, BNP, HS TROP #### [place] [address] USAWBC (Bld) [#/Vol]8.9 10*3/uLNormal4.5-11.0T[facility]edo HospitalComment on above:Performed By: #### CBC, PT, PTT, CMP, LIPASE, BNP, HS TROP #### [place] [address] USAComprehensive Metabolic Panelon [id number] [Mass/Vol]3.2 g/dLNormal3.2-5.5FMetroHealth Cleveland Heights Medical CenterComment on above:Performed By: #### CBC, PT, PTT, CMP, LIPASE, BNP, HS TROP #### [place] [address] USAAlbumin/Globulin [Mass ratio]1.0 {ratio}NormalToledo HospitalComment on above:Performed By: #### CBC, PT, PTT, CMP, LIPASE, BNP, HS TROP #### [facility] [address] [place] [address] USAALP [Catalytic activity/Vol]71 U/ZYiobqt64-93BlsqvgosiToledo HospitalComment on above:Performed By: #### CBC, PT, PTT, CMP, LIPASE, BNP, HS TROP #### [place] [address] USAALT [Catalytic activity/Vol]22 U/CZbixfv28-75MemljalvdToledo HospitalComment on above:Performed By: #### CBC, PT, PTT, CMP, LIPASE, BNP, HS TROP #### [facility] Ctr [address] [place] [address] USAAST [Catalytic activity/Vol]20 U/TZfvpiu85-08JeyoldlvuToledo HospitalComment on above:Performed By: #### CBC, PT, PTT, CMP, LIPASE, BNP, HS TROP #### [place] [address] USABilirubin [Mass/Vol]0.6 mg/dLNormal0.3-1.2FMetroHealth Cleveland Heights Medical CenterComment on above:Performed By: #### CBC, PT, PTT, CMP, LIPASE, BNP, HS TROP #### [place] [address] USACalcium [Mass/Vol]10.3 mg/dLHigh8.2-10.2FMetroHealth Cleveland Heights Medical CenterComment on above:Performed By: #### CBC, PT, PTT, CMP, LIPASE, BNP, HS TROP #### [place] [address] USAChloride [Moles/Vol]111 mmol/CAaqrvn21-636RdpfjaxsrToledo HospitalComment on above:Performed By: #### CBC, PT, PTT, CMP, LIPASE, BNP, HS TROP #### [place] [address] USACO2 [Moles/Vol]20.2 mmol/LLow22.0-30.0Toledo HospitalComment on above:Performed By: #### CBC, PT, PTT, CMP, LIPASE, BNP, HS TROP #### [facility] [address] [place] [address] USACreatinine [Mass/Vol]1.80 mg/dLHigh0.64-1.27Toledo HospitalComment on above:Performed By: #### CBC, PT, PTT, CMP, LIPASE, BNP, HS TROP #### [facility] [address] [place] [address] USACreatinine Clr Calc Cavswegy20.94NoCoshocton Regional Medical CenterComment on above:Performed By: #### CBC, PT, PTT, CMP, LIPASE, BNP, HS TROP #### [facility] [address] [place] [address] USAEstimated GFR ( Gqyodyk96XhvixxQvwvevdztSCCI Hospital LimaComment on above:Result Comment: GFR estimated reference range: According to KDOQI guidelines, <60 ml/min/1.73m2 is sufficient to diagnose a patient with chronic kidney disease.Performed By: #### CBC, PT, PTT, CMP, LIPASE, BNP, HS TROP #### [facility] [address] [place] [address] USAEstimated GFR (Non- Co14DdsqikXnzglovsn[address] [place], [place] [address]Comment on above:Performed By: #### CBC, PT, PTT, CMP, LIPASE, BNP, HS TROP #### [facility] [address] [place] [address] USAGlobulin (S) [Mass/Vol]3.1 g/dLSCCI Hospital LimaComment on above:Performed By: #### CBC, PT, PTT, CMP, LIPASE, BNP, HS TROP #### [facility] [address] [place] [address] USAGlucose [Mass/Vol]85 mg/hZAwxpiz30-340DdgrlddrxToledo HospitalComment on above:Result Comment: Random Glucose Reference Range is dependent on time and content of last meal. Glucose of more than 200 mg/dL in a nonstressed, ambulatory subject supports the diagnosis of Diabetes Mellitus. ADA recommended reference rangePerformed By: #### CBC, PT, PTT, CMP, LIPASE, BNP, HS TROP #### [facility] [address] [place] [address] USAPotassium [Moles/Vol]4.2 mmol/LNormal3.5-5.1FMetroHealth Cleveland Heights Medical CenterComment on above:Performed By: #### CBC, PT, PTT, CMP, LIPASE, BNP, HS TROP #### [facility] [address] [place] [address] USAProtein [Mass/Vol]6.3 g/dLNormal6.1-7.9Toledo HospitalComment on above:Performed By: #### CBC, PT, PTT, CMP, LIPASE, BNP, HS TROP #### [facility] [address] [place] [address] USASodium [Moles/Vol]139 mmol/WJwstsv192-512XghjbubfuToledo HospitalComment on above:Performed By: #### CBC, PT, PTT, CMP, LIPASE, BNP, HS TROP #### [facility] [address] [place] [address] USAUrea nitrogen [Mass/Vol]26 mg/dLHigh9-23Toledo HospitalComment on above:Performed By: #### CBC, PT, PTT, CMP, LIPASE, BNP, HS TROP #### [place] [address] USACreatinine and Glomerular filtration rate.predicted panel (S/P/Bld)Ordered By: Basilio Sam on 30-47-5466Blghbwmwtz [Mass/Vol]1.80 mg/dL 0.64-1.27Toledo HospitalECG 12 lead ECGon 20-70-3967JYD 12 lead ECGHOLZER [facility] [place] [address] [place] [address] Electrocardiograph Report Signed Patient: Elias Walker MR#: [id number] : 1985 Acct:[id number] Age/Sex: 36 / M ADM Date: 08/28/21 Loc: ER Room: Type: [facility] ER Attending Dr: Ordering Provider: Basilio Sam [...] Signed By Madison Rodriguez MD 08/05 08/25 0126NormalToledo HospitalEosinophils Auto (Bld) [#/Vol] Ordered By: Basilio Sam on 15-42-2323Szyitrkrzcm (Bld) [#/Vol]0.1 10*3/uL 0.0-0.45Toledo HospitalEosinophils/100 WBC Auto (Bld)Ordered By: Basilio Sam on 25-62-9061Zbgnvkfbwcy/100 WBC (Bld)1.1 %Toledo HospitalErythrocyte distribution width Auto (RBC) [Ratio]Ordered By: Basilio Sam on 12-26-0761Ekopcvmbqno distribution width (RBC) [Ratio]13.5 % 12.0-14.8Toledo HospitalEstimated glomerular filtration rate (GFR) non- AmericanOrdered By: Basilio Sam on 07-03-8462SPI/1.73 sq M.predicted among non-blacks MDRD (S/P/Bld) [Vol rate/Area]43 mL/MinToledo HospitalGlobulin Calc (S) [Mass/Vol]Ordered By: Basilio Sam on 91-22-6191Qppqevjg (S) [Mass/Vol]3.1 g/dLToledo Hospital Hematocrit Auto (Bld) [Volume fraction]Ordered By: Basilio Sam on 08-28-2021 Hematocrit (Bld) [Volume fraction]40.3 %38.8-50.0Toledo HospitalLaboratory - Chemistry and Chemistry - challengeOrdered By: Basilio Sam on 86-00-8632Jmuzuu [Catalytic activity/Vol]39.0 U/X02-76PdzagewusToledo HospitalNatriuretic peptide B (Bld) [Mass/Vol]300.0 pg/mL5-100Toledo HospitalLaboratory - CoagulationOrdered By: Basilio Sam on 04-84-1417LS Coag (PPP) [Time]12.0 s9.0-12.9[facility] Laboratory - Hematology and Cell countsOrdered By: Basilio Sam on 08-28-2021 Nucleated RBC/100 WBC (Bld) [Ratio]0.1 %0-0.5FMetroHealth Cleveland Heights Medical Center Laboratory - Microbiology and Antimicrobial susceptibilityOrdered By: Basilio Sam on 69-64-8420XUQW-CoV-2 (COVID-19) RNA VIK+probe Ql (Unsp spec)N/A Toledo HospitalLipaseon 57-82-2365Zvedds [Catalytic activity/Vol]39.0 U/VJufxvw27-23DecgqjruhToledo HospitalComment on above:Result Comment: PERFORMED BY: [place] [address] PATHOLOGIST COOK PRESSURE MOHINDER MARKS M.D.Performed By: #### CBC, PT, PTT, CMP, LIPASE, BNP, HS TROP #### [place] [address] USALymphocytes Auto (Bld) [#/Vol]Ordered By: Basilio Sam on 00-10-5081Mvmiscialwt (Bld) [#/Vol]2.8 10*3/uL1.00-4.8Toledo HospitalLymphocytes/100 WBC Auto (Bld)Ordered By: Basilio Sam on 08-28-2021 Lymphocytes/100 WBC (Bld)31.4 %[facility] Auto (RBC) [Entitic mass]Ordered By: Basilio Sam on 39-43-3537RCC (RBC) [Entitic mass]28.9 pg27.5-35.2FMetroHealth Cleveland Heights Medical CenterMCHC Auto (RBC) [Mass/Vol]Ordered By: Basilio Sam on 81-68-5808TKGU (RBC) [Mass/Vol]34.1 g/dL32.5-35.6FMetroHealth Cleveland Heights Medical CenterMCV Auto (RBC) [Entitic vol]Ordered By: Basilio Sam on 41-73-4237HDZ (RBC) [Entitic vol]84.9 fL83.5-101Toledo HospitalMonocytes Auto (Bld) [#/Vol]Ordered By: Basilio Sam on 08-28-2021 Monocytes (Bld) [#/Vol]0.6 10*3/uL0.0-0.8[facility] Monocytes/100 WBC Auto (Bld)Ordered By: Basilio Sam on 45-16-5145Sycmgsqqe/100 WBC (Bld)6.5 %Toledo HospitalNeutrophils Auto (Bld) [#/Vol] Ordered By: Basilio Sam on 05-22-6112Xpipkxckfvj (Bld) [#/Vol]5.4 10*3/uL 1.8-7.7FMetroHealth Cleveland Heights Medical CenterNeutrophils/100 WBC Auto (Bld)Ordered By: Basilio Sam on 09-10-9375Craexrjxqjp/100 WBC (Bld)60.4 %Toledo HospitalNo Panel InformationOrdered By: Basilio Sam on 85-51-2137FCAI Antigen (LFIA)Toledo HospitalEstimated GFR () 52 mL/MinToledo HospitalComment on above:GFR estimated reference range: According to KDOQI guidelines, <60 ml/min/1.73m2 is sufficient todiagnose a patient with chronic kidney disease.Pharmacy Creatinine Clearance (Chem62.94Toledo HospitalPartial Thromboplastin Timeon 89-80-7479tHPB Coag (Bld) [Time]33.0 aYurrsq11.1-36.5FMetroHealth Cleveland Heights Medical CenterComment on above:Result Comment: PERFORMED BY: [facility] [address] [place] [address] PATHOLOGIST COOK PRESSURE MOHINDER MARKS M.D.Performed By: #### CBC, PT, PTT, CMP, LIPASE, BNP, HS TROP #### [place] [address] USAPlatelet mean volume Auto (Bld) [Entitic vol]Ordered By: Basilio Sam on 47-66-3103Kibwgmtr mean volume (Bld) [Entitic vol]7.9 fL6.6-10.1 Toledo HospitalPlatelet poor plasma international normalized ratio (INR) by coagulation assay (relatOrdered By: Basilio Sam on 69-75-6956WOV Coag (PPP) [Relative time]1.1 {INR}Toledo HospitalComment on above:INR Therapeutic Range A) Pre- and [...] Auto (Bld) [#/Vol]Ordered By: Basilio Sam on 26-81-6899Qseltcmsz (Bld) [#/Vol]277 10*3/uL 150-450Toledo HospitalProtein [Mass/volume] in Serum or Plasma Ordered By: Basilio Sam on 13-78-8585Rwvjvum [Mass/Vol]6.3 g/dL6.1-7.9Toledo HospitalProthrombin Time INRon 69-26-3531QXO Coag (PPP) [Relative time]1.1 {INR}NormalToledo HospitalComment on above: Result Comment: INR Therapeutic Range [...] PTT, CMP, LIPASE, BNP, HS TROP #### [place] [address] USAPT Coag (PPP) [Time]12.0 sNormal9.0-12.9Toledo HospitalComment on above:Performed By: #### CBC, PT, PTT, CMP, LIPASE, BNP, HS TROP #### [facility] [address] [place] [address] USARB Auto (Bld) [#/Vol]Ordered By: Basilio Sam on 00-11-6410TSF (Bld) [#/Vol]4.75 10*6/uL3.90-5.60Kn[facility] Community Hospitalerum or plasma alanine aminotransferase measurement without P-5'-P (enzymatic activiOrdered By: Basilio Sam on 99-46-7739FDY No additional P-5'-P [Catalytic activity/Vol]22 U/A99-44KzuyfrogsKnox Community Hospitalerum or plasma albumin/globulin mass ratioOrdered By: Basilio Sam on 08-28-2021 Albumin/Globulin [Mass ratio]1.0 {ratio}[facility] Hospitalerum or plasma alkaline phosphatase measurement (enzymatic activity/volume)Ordered By: Basilio Sam on 74-85-8552XYK [Catalytic activity/Vol]71 U/J58-31GbvbxmaqrKnox Community Hospitalerum or plasma aspartate aminotransferase measurement (enzymatic activity/volume)Ordered By: Basilio Sam on 33-29-0987OKQ [Catalytic activity/Vol]20 U/B37-75QiegiazfzKnox Community Hospitalerum or plasma calcium measurement (mass/volume)Ordered By: Basilio Sam on 08-57-4105Iuossdk [Mass/Vol]10.3 mg/dL8.2-10.2FParkview Health Bryan Hospitalerum or plasma chloride measurement (moles/volume)Ordered By: Basilio Sam on 08-28-2021 Chloride [Moles/Vol]111 mmol/Y28-866JarokbpxtKnox Community Hospitalerum or plasma glucose measurement (mass/volume)Ordered By: Basilio Sam on 08-28-2021 Glucose [Mass/Vol]85 mg/cX25-759WpxvaotzyToledo HospitalComment on above:ADA recommended reference range Random Glucose Reference Range is dependent on time and content of last meal. Glucose of more than 200 mg/dL in a nonstressed, ambulatory subject supports the diagnosis of Diabetes Mellitus.Serum or plasma potassium measurement (moles/volume)Ordered By: Basilio Sam on 08-28-0305Tbwzbiijn [Moles/Vol]4.2 mmol/L3.5-5.1FParkview Health Bryan Hospitalerum or plasma sodium measurement (moles/volume)Ordered By: Basilio Sam on 08-20-4214Cywqnl [Moles/Vol]139 mmol/Y062-556CvjdsnnqeKnox Community Hospitalerum or plasma total bilirubin measurement (mass/volume)Ordered By: Basilio Sam on 49-81-5766Detmtmpug [Mass/Vol]0.6 mg/dL0.3-1.2FParkview Health Bryan Hospitalerum or plasma total carbon dioxide measurement (moles/volume)Ordered By: Basilio Sam on 08-28-2021 CO2 [Moles/Vol]20.2 mmol/L22.0-30.0Kn[facility] Community Hospitalerum or plasma urea nitrogen measurement (mass/volume)Ordered By: Basilio Sam on 94-06-9609Spvb nitrogen [Mass/Vol]26 mg/dL9-23[facility] Ann Ag Negativeon 06-07-2351Oxnlj Ag NegativeNegativeNormalNegativeToledo HospitalComment on above:Result Comment: This is a duplicate Ann SARS Antigen (JAYCEE) result to be used for statistical tracking purpose only. PERFORMED BY: [address] [address] PATHOLOGIST COOK PRESSURE MOHINDER MARKS M.D.Performed By: #### COVID-19 CINDI JUAREZ, [address] #### [facility] [address] [place] [address] USATroponin I High Sensitivityon 87-06-4901Zzgenyqv I High Iuhoqiaielo92 pg/mLOff scale high0-20Toledo HospitalComment on above:Result Comment: Critical value result called at 2040 on 08/28/21 PERFORMED BY: [facility] [address] [place] [address] PATHOLOGIST COOK PRESSURE MOHINDER MARKS M.D.Performed By: #### COVID-19 ANN SOFIANEG, [address] #### [facility] [address] [place] [address] USATroponin I.cardiac [Mass/volume] in Serum or Plasma by High sensitivity methodOrdered By: Basilio Sam on 62-56-5920Xvaiiwzj I.cardiac High sensitivity method [Mass/Vol]62 pg/mL0-20[facility] Comment on above:Results called at 2304 on 08/28/21 Vital Signs Date TimeVital SignValuePerforming XtmjhamksTiyvpses79-45-8917 14:25-0400Body owdsbr537.1 cmSheng Jerezzer DIRECTOR PRODUCT-SINGLE WIRE SAW OPERATOR Work Phone: [facility]Story[facility]10-27-2025 14:25-0400Body mass index (BMI) [Ratio]43.87 kg/m2Sheng Jerezzer DIRECTOR PRODUCT-SINGLE WIRE SAW OPERATOR Work Phone: [facility]10-27-2025 14:25-0400Body voqlhqtkpii91 [degF]Sheng Jerezzer DIRECTOR PRODUCT-SINGLE WIRE SAW OPERATOR Work Phone: [facility] CenterStory[facility]10-27-2025 14:25-0400Body wymldl982.57 kgSheng Jerezzer DIRECTOR PRODUCT-SINGLE WIRE SAW OPERATOR Work Phone: [facility]10-27-2025 14:25-0400Diastolic blood mm[Hg]Sheng Jerezzer DIRECTOR PRODUCT-SINGLE WIRE SAW OPERATOR Work Phone: [facility]10-27-2025 14:25-0400Heart rate 96 /minSheng Jerezzer DIRECTOR PRODUCT-SINGLE WIRE SAW OPERATOR Work Phone: [facility]10-27-2025 14:25-0400 Respiratory rate18 /minSheng Jerezzer DIRECTOR PRODUCT-SINGLE WIRE SAW OPERATOR Work Phone: [facility]10-27-2025 14:25-8115VtB9% (BldA) [Mass fraction]95 %Sheng Jerezzer DIRECTOR PRODUCT-SINGLE WIRE SAW OPERATOR Work Phone: [facility]Story[facility]10-27-2025 14:25-0400Systolic blood ojdofwmk365 mm[Hg]Sheng Jerezzer DIRECTOR PRODUCT-SINGLE WIRE SAW OPERATOR Work Phone: [facility] Vdqimu98-69-0005 14:51-0400Body vditho606.1 Syeda Khanna APRN-SINGLE WIRE SAW OPERATOR Work Phone: [facility] [employer] Ovnjkk31-26-3263 14:51-0400Body mass index (BMI) [Ratio]46.66 kg/i2HsuigyfJose Khanna APRN-SINGLE WIRE SAW OPERATOR Work Phone: [facility] [employer] Zjbuqi41-10-8887 14:51-0400Body vqklukbkiof73.59 [degF]Jose Khanna APRN-SINGLE WIRE SAW OPERATOR Work Phone: [facility] [employer] Nygcfe26-96-7354 14:51-0400Body .19 kgJose Khanna APRN-SINGLE WIRE SAW OPERATOR Work Phone: [facility]04-07-2025 14:51-0400Diastolic blood ioclwvvg08 mm[Hg]Jose Khanna APRN-SINGLE WIRE SAW OPERATOR Work Phone: [facility]04-07-2025 14:51-0400Heart rate 65 /minJose Khanna APRN-SINGLE WIRE SAW OPERATOR Work Phone: [facility] [employer] Ieybha57-17-1624 14:51-0400 Respiratory rate18 /minJose Khanna APRN-SINGLE WIRE SAW OPERATOR Work Phone: [facility]04-07-2025 14:51-3318XbQ1% (BldA) [Mass fraction]97 %Jose Khanna APRN-SINGLE WIRE SAW OPERATOR Work Phone: [facility]04-07-2025 14:51-0400Systolic blood cfxocxws431 mm[Hg]Jose Khanna APRN-SINGLE WIRE SAW OPERATOR Work Phone: [facility] [employer] Jsazzw36-88-8509 15:33-0500Body dkmeqh639.1 Syeda Khanna APRN-SINGLE WIRE SAW OPERATOR Work Phone: [facility] [employer] Utqnrm66-92-1963 15:33-0500Body mass index (BMI) [Ratio]47.29 kg/z6DpsdwbmJose Khanna APRN-SINGLE WIRE SAW OPERATOR Work Phone: [facility] [employer] Zjewpb48-71-3238 15:33-0500Body cbkvnaqwlpv08.59 [degF]Jose Khanna APRN-SINGLE WIRE SAW OPERATOR Work Phone: [facility] [employer] Yeoqvb78-38-4994 15:33-0500Body ovvjxn050.91 kgJose Khanna APRN-SINGLE WIRE SAW OPERATOR Work Phone: [facility] [employer] Udonyz73-93-4688 15:33-0500Diastolic blood ulhgpcux13 mm[Hg]Jose Khanna APRN-SINGLE WIRE SAW OPERATOR Work Phone: [facility] [employer] Tzazkh36-62-6475 15:33-0500Heart rate 76 /minJose Khanna APRN-SINGLE WIRE SAW OPERATOR Work Phone: [facility] [employer] Exrxew20-44-7621 15:33-0500 Respiratory rate18 /minJose Khanna APRN-SINGLE WIRE SAW OPERATOR Work Phone: [facility] [employer] Pwdeww62-93-7316 15:33-1377PlA9% (BldA) [Mass fraction]97 %Jose Khanna APRN-JOSE Work Phone: [facility] [employer] Gqziua81-46-3512 15:33-0500Systolic blood vjgpyige642 mm[Hg]Jose Khanna APRN-SINGLE WIRE SAW OPERATOR Work Phone: [facility] [employer] Tbbwbs86-11-1469 15:48-0500Body .1 cmNandevonte PHAM Work Phone: [facility] [employer] Ehjrkw17-23-8267 15:48-0500Body mass index (BMI) [Ratio]46.59 kg/i2Cjzwi Brown LD Work Phone: [facility] Ofkdzu94-44-9599 15:48-0500Body uigdat080.01 kgNandevonte Blancas LD Work Phone: [facility] [employer] Zvgevt60-72-6802 08:48-0500Body mass index (BMI) [Ratio]46.69 kg/a8TpzeasjJose Khanna APRN-SINGLE WIRE SAW OPERATOR Work Phone: [facility] [employer] Wxtoiy50-70-9336 08:48-0500Body bgxbyjhjsgg92.5 [degF]Jose MENDEZ Work Phone: [facility]11-12-2024 08:48-0500Body ailyws319.28 kgJose Khanna APRN-JOSE Work Phone: [facility]11-12-2024 08:48-0500Diastolic blood izsrmjxr91 mm[Hg]Jose Khanna APRN-SINGLE WIRE SAW OPERATOR Work Phone: [facility]11-12-2024 08:48-0500Heart rate 81 /minJose Khanna APRN-JOSE Work Phone: [facility]11-12-2024 08:48-7977FbR8% (BldA) [Mass fraction]97 %Jose Khanna APRN-JOSE Work Phone: [facility]11-12-2024 08:48-0500Systolic blood efbwcvyu107 mm[Hg]Jose Khanna APRN-JOSE Work Phone: [facility]09-19-2024 15:24-0400Body ajmpdo792.1 cmVelvis Khanna APRN-JOSE Work Phone: [facility] [employer] Kimptw75-39-2896 15:24-0400Body mass index (BMI) [Ratio]47.03 kg/a9UdeugdhJose Khanna APRN-JOSE Work Phone: [facility] [employer] Uldvct34-19-0190 15:24-0400Body bzfhltezcuy37.49 [degF]Jose Khanna APRN-SINGLE WIRE SAW OPERATOR Work Phone: [facility]09-19-2024 15:24-0400Body gibuxu821.19 kgJose Khanna APRN-SINGLE WIRE SAW OPERATOR Work Phone: [facility] [employer] Vheoko18-23-7546 15:24-0400Diastolic blood lzxjlygn79 mm[Hg]Jose Khanna APRN-SINGLE WIRE SAW OPERATOR Work Phone: [facility]09-19-2024 15:24-0400Heart rate 89 /minJose Khanna APRN-SINGLE WIRE SAW OPERATOR Work Phone: [facility]09-19-2024 15:24-0400 Respiratory rate20 /minJose Khanna DIRECTOR PRODUCT-SINGLE WIRE SAW OPERATOR Work Phone: [facility]09-19-2024 15:24-2955YaW0% (BldA) [Mass fraction]95 %Jose Khanna DIRECTOR PRODUCT-SINGLE WIRE SAW OPERATOR Work Phone: [facility]09-19-2024 15:24-0400Systolic blood lyieyhzp470 mm[Hg]Jose Khanna DIRECTOR PRODUCT-SINGLE WIRE SAW OPERATOR Work Phone: [facility]07-31-2024 15:20-0400Body uvsaaq726.1 cmVelvis Khanna APRN-SINGLE WIRE SAW OPERATOR Work Phone: [facility]07-31-2024 15:20-0400Body mass index (BMI) [Ratio]48.26 kg/c7UzoiqcpJose Khanna APRN-SINGLE WIRE SAW OPERATOR Work Phone: [facility]07-31-2024 15:20-0400Body spwctogqhnv62.71 [degF]Jose Khanna APRN-SINGLE WIRE SAW OPERATOR Work Phone: [facility]07-31-2024 15:20-0400Body qjhosi908.54 kgJose Khanna DIRECTOR PRODUCT-SINGLE WIRE SAW OPERATOR Work Phone: [facility]07-31-2024 15:20-0400Diastolic blood fppukzrs73 mm[Hg]Jose Khanna APRN-SINGLE WIRE SAW OPERATOR Work Phone: [facility]07-31-2024 15:20-0400Heart rate 78 /minJose Khanna APRN-SINGLE WIRE SAW OPERATOR Work Phone: [facility]07-31-2024 15:20-0400 Respiratory rate18 /minJose Khanna DIRECTOR PRODUCT-SINGLE WIRE SAW OPERATOR Work Phone: [facility]07-31-2024 15:20-5552IwO9% (BldA) [Mass fraction]96 %Jose Khanna DIRECTOR PRODUCT-SINGLE WIRE SAW OPERATOR Work Phone: [facility]07-31-2024 15:20-0400Systolic blood nbuwkbbi457 mm[Hg]Jose Khanna DIRECTOR PRODUCT-SINGLE WIRE SAW OPERATOR Work Phone: [facility]07-17-2024 15:04-0400Body .1 cmVelvis Khanna DIRECTOR PRODUCT-SINGLE WIRE SAW OPERATOR Work Phone: [facility]07-17-2024 15:04-0400Body mass index (BMI) [Ratio]48.28 kg/u9ZopwgxnJose Khanna DIRECTOR PRODUCT-SINGLE WIRE SAW OPERATOR Work Phone: [facility]07-17-2024 15:04-0400Body .2 [degF]Jose Khanna DIRECTOR PRODUCT-SINGLE WIRE SAW OPERATOR Work Phone: [facility]07-17-2024 15:04-0400Body bsdzyo572.59 kgJose Khanna APRN-SINGLE WIRE SAW OPERATOR Work Phone: [facility]07-17-2024 15:04-0400Diastolic blood kvnohbgn29 mm[Hg]Jose Khanna DIRECTOR PRODUCT-SINGLE WIRE SAW OPERATOR Work Phone: [facility]07-17-2024 15:04-0400Heart rate 80 /minJose Khanna DIRECTOR PRODUCT-SINGLE WIRE SAW OPERATOR Work Phone: [facility]07-17-2024 15:04-0400 Respiratory rate18 /minJose Khanna DIRECTOR PRODUCT-SINGLE WIRE SAW OPERATOR Work Phone: [facility]07-17-2024 15:04-4351XfT8% (BldA) [Mass fraction]94 %Jose Khanna DIRECTOR PRODUCT-SINGLE WIRE SAW OPERATOR Work Phone: [facility] [employer] Owoweh75-21-6833 15:04-0400Systolic blood ylxovnqz24 mm[Hg]Jose Khanna APRN-SINGLE WIRE SAW OPERATOR Work Phone: [facility] [employer] Txbdzu06-23-5210 10:34-0400Body mdsuwf143.1 cmVelvis Khanna APRN-SINGLE WIRE SAW OPERATOR Work Phone: [facility] [employer] Jsobqj32-82-2611 10:34-0400Body mass index (BMI) [Ratio]48.72 kg/k4KxdwmdpJose Khanna APRN-SINGLE WIRE SAW OPERATOR Work Phone: [facility] [employer] Komxbj42-23-6276 10:34-0400Body poufrfwzauy83.1 [degF]Jose Khanna APRN-SINGLE WIRE SAW OPERATOR Work Phone: [facility] [employer] Dvzlza43-55-4165 10:34-0400Body autgvk183.81 kgJose Khanna APRN-SINGLE WIRE SAW OPERATOR Work Phone: [facility] [employer] Ihkpca90-22-9586 10:34-0400Diastolic blood vnwmjsip71 mm[Hg]Jose Khanna APRN-SINGLE WIRE SAW OPERATOR Work Phone: [facility] HospitalComment on above:bp very quiet 07-18-2023 10:34-0400Heart rate70 /minJose Khanna APRN-SINGLE WIRE SAW OPERATOR Work Phone: [facility] [employer] Yizyls20-77-6187 10:34-0400 Respiratory rate18 /minJose Khanna APRN-SINGLE WIRE SAW OPERATOR Work Phone: [facility] [employer] Axchha06-64-9895 10:34-5909XfD6% (BldA) [Mass fraction]95 %Jose Khanna APRN-SINGLE WIRE SAW OPERATOR Work Phone: [facility] [employer] Snzrqw61-05-7667 10:34-0400Systolic blood mm[Hg]Jose Khanna APRN-SINGLE WIRE SAW OPERATOR Work Phone: [facility] HospitalComment on above:bp very quiet 05-10-2023 13:35-0500Body mrresh893.1 cmVelvis MENDEZ Work Phone: [facility] [employer] [id number] 13:35-0500Body mass index (BMI) [Ratio]48.89 kg/t7GppzrbaJose Khanna APRN-SINGLE WIRE SAW OPERATOR Work Phone: [facility] [employer] [id number] 13:35-0500Body cncalpmajgy63.4 [degF]Jose Khanna APRN-SINGLE WIRE SAW OPERATOR Work Phone: [facility] [employer] [id number] 13:35-0500Body ymwgge590.27 kgJose Khanna APRN-JOSE Work Phone: [facility]03-06-2024 13:35-0500Diastolic blood mm[Hg]Jose Khanna APRN-SINGLE WIRE SAW OPERATOR Work Phone: [facility]03-06-2024 13:35-0500Heart rate 84 /minJose Khanna APRN-JOSE Work Phone: [facility] [employer] Xsjcym84-64-3100 13:35-0534CvF4% (BldA) [Mass fraction]94 %Jose Khanna APRN-JOSE Work Phone: [facility] [employer] Komjun13-30-8005 13:35-0500Systolic blood tjsxutsn141 mm[Hg]Jose Khanna APRN-SINGLE WIRE SAW OPERATOR Work Phone: [facility]03-01-2024 09:11-0500Body mhgoul108.1 cmTereza Carrera APRN-SINGLE WIRE SAW OPERATOR Work Phone: [facility] [employer] Ooaenz91-27-0853 09:11-0500Body mass index (BMI) [Ratio]49.52 kg/d1Qykuyrherminio Carrera APRN-SINGLE WIRE SAW OPERATOR Work Phone: [facility] [employer] Ewgtzd00-93-5165 09:11-0500Body iemnaepwddq68.59 [degF]Tereza Carrera APRN-SINGLE WIRE SAW OPERATOR Work Phone: [facility] [employer] Rtomdu58-05-3231 09:11-0500Body ousoqx132.99 kgTereza Carrera APRN-SINGLE WIRE SAW OPERATOR Work Phone: [facility] [employer] Afzzll12-19-4872 09:11-0500Diastolic blood zgdbdawz74 mm[Hg]Tereza Carrera APRN-SINGLE WIRE SAW OPERATOR Work Phone: [facility] [employer] Izvatw33-09-1133 09:11-0500Heart rate 90 /minTereza Carrera APRN-SINGLE WIRE SAW OPERATOR Work Phone: [facility] [employer] Dlnvpg18-95-4287 09:11-4952KrW0% (BldA) [Mass fraction]98 %Tereza Carrera APRN-SINGLE WIRE SAW OPERATOR Work Phone: [facility] [employer] Pvwsih82-71-7365 09:11-0500Systolic blood mm[Hg]Tereza Carrera APRN-SINGLE WIRE SAW OPERATOR Work Phone: [facility] [employer] Yumhmk76-10-1875 09:06-0500Body .1 cmVelvis Khanna APRN-SINGLE WIRE SAW OPERATOR Work Phone: [facility] [employer] Lxfhhn89-01-6111 09:06-0500Body mass index (BMI) [Ratio]50.46 kg/n8Nwedjfchermelinda Khanna APRN-SINGLE WIRE SAW OPERATOR Work Phone: [facility] [employer] Ukuszu23-41-6009 09:06-0500Body czllezgrjaa38.3 [degF]Jose Khanna APRN-SINGLE WIRE SAW OPERATOR Work Phone: [facility] [employer] Eixxbw00-37-0838 09:06-0500Body .53 kgJose Khanna APRN-SINGLE WIRE SAW OPERATOR Work Phone: [facility] [employer] Buflub88-53-8932 09:06-0500Diastolic blood thaerxny30 mm[Hg]Jose Khanna APRN-SINGLE WIRE SAW OPERATOR Work Phone: [facility] [employer] Vxleyg73-87-5118 09:06-0500Heart rate 76 /minValehermelinda Khanna APRN-SINGLE WIRE SAW OPERATOR Work Phone: [facility] [employer] Xwlgyz37-88-6779 09:06-7086ZzD1% (BldA) [Mass fraction]97 %Jose Khanna APRN-SINGLE WIRE SAW OPERATOR Work Phone: [facility] [employer] Zxyzdo51-63-9180 09:06-0500Systolic blood mm[Hg]Jose Khanna APRN-SINGLE WIRE SAW OPERATOR Work Phone: [facility]01-23-2024 10:17-0500Body .1 cmEliana Merino DIRECTOR PRODUCT-BANK TELLER Work Phone: [facility]01-23-2024 10:17-0500Body mass index (BMI) [Ratio]50.12 kg/m2Eliana Merino DIRECTOR PRODUCT-BANK TELLER Work Phone: [facility] [employer] Gylell77-57-3529 10:17-0500Body lsxmbwphexk73.59 [degF]Eliana Merino DIRECTOR PRODUCT-BANK TELLER Work Phone: [facility] [employer] Tfwzrh55-45-4122 10:17-0500Body gsvmun707.62 kgEliana Merino DIRECTOR PRODUCT-BANK TELLER Work Phone: [facility] [employer] Wmscwi72-54-9062 10:17-0500Diastolic blood wlqynzlo03 mm[Hg]Eliana Merino DIRECTOR PRODUCT-BANK TELLER Work Phone: [facility] [employer] Phmvbl66-91-9709 10:17-0500Heart rate 75 /minEliana Merino DIRECTOR PRODUCT-BANK TELLER Work Phone: [facility] [employer] Umudcy77-33-6127 10:17-6926UpI5% (BldA) [Mass fraction]98 %Eliana Merino DIRECTOR PRODUCT-BANK TELLER Work Phone: [facility]01-23-2024 10:17-0500Systolic blood bouigses852 mm[Hg]Eliana Merino DIRECTOR PRODUCT-BANK TELLER Work Phone: [facility]01-03-2024 16:50-0500Body qmposd053.1 cmVelvis Khanna APRN-JOSE Work Phone: [facility]01-03-2024 16:50-0500Body mass index (BMI) [Ratio]48.99 kg/i6ZjjrozjJose Khanna APRN-JOSE Work Phone: [facility] [employer] Dfreur99-38-2645 16:50-0500Body .7 [degF]Jose Khanna APRN-JOSE Work Phone: [facility] [employer] Thkean99-20-4966 16:50-0500Body hpwcla518.54 kgJose Khanna APRN-JOSE Work Phone: [facility] [employer] Zlrizu87-10-0198 16:50-0500Diastolic blood mm[Hg]Jose Khanna APRN-JOSE Work Phone: [facility] [employer] Kzrajo94-90-5835 16:50-0500Heart rate 59 /minValehermelinda Khanna APRN-JOSE Work Phone: [facility] Iqdhpo31-70-2874 16:50-4935StN3% (BldA) [Mass fraction]96 %Jose Khanna APRN-JOSE Work Phone: [facility] [employer] Sazdpu27-14-6027 16:50-0500Systolic blood oleuiegs106 mm[Hg]Jose Khanna APRN-JOSE Work Phone: [facility] [employer] Qlvnno96-56-7163 13:37-0400Body mbcfooybrmg83.01 [degF]Fly Rauscheh DO Work Phone: [employer]04-03-2023 13:37-0400Diastolic blood mm[Hg]Fly Lugohaleh DO Work Phone: [employer]04-03-2023 13:37-0400Heart rate95 /minModick Rauscheh DO Work Phone: [facility] [employer]04-03-2023 13:37-8770WkT2% (BldA) [Mass fraction]96 %Fly Zapata DO Work Phone: [facility] [employer]04-03-2023 13:37-0400Systolic blood fkegweht700 mm[Hg]Fly Zapata DO Work Phone: [facility] [employer] [facility]iGlueBESMEG59-93-0740 12:00-0400Body kepsmc170.6 cmHidick Zapata DO Work Phone: [facility]ALESpinX Technologies [facility]iGlueEETGVC16-15-4720 07:56-0400 Respiratory rate18 /minModick Zapata DO Work Phone: [employer] [facility]iGlueHYSVIS20-00-8470 06:00-0400Body mass index (BMI) [Ratio]48.7 kg/l6Imotbldbdick Zapata DO Work Phone: [facility] [employer]04-02-2023 06:00-0400Body eyvohb531.7 kgHidick Zapata DO Work Phone: [facility]ALESpinX Technologies [facility]iGlueZRZUOE44-75-4382 14:15-0400Diastolic blood hugzdjiv90 mm[Hg][facility]iGlueOTKCHY45-22-3706 14:15-0400Heart rate83 /minMth [address] [place], [place] [address] [facility]iGlueMXJSUY82-59-5722 14:15-0400Systolic blood ceztncol542 mm[Hg][address] [facility]iGluePCFZDZ83-88-0559 16:15-0400Body uvwfwmtkzko79.7 [degF][facility]iGlueMQFLZB76-41-6563 16:15-0400 Diastolic blood czuuvpfr94 mm[Hg][facility]ITAL[facility]iGlueKYVBHZ12-90-7075 16:15-0400Heart rate78 /minMth [address] [place], [place] [address] [facility]iGlueSMBOSS26-33-8371 16:15-0400 Respiratory rate18 /minMth [address] [place], [place] [address] [facility]ENTERiGlueRZQYIK67-08-6739 16:15-1104OuV0% (BldA) [Mass fraction]99 %[facility] 01[facility]07-23-2022 16:15-0400 Systolic blood vfktelvg185 mm[Hg][facility]20[facility] 16:18-0400Body picmvcwbtvm94.91 [degF][facility] 01[facility]07-22-2022 16:18-0400Heart rate88 /minMth 01[facility]07-22-2022 16:18-0400 Respiratory rate18 /minMth [facility]-21-2022 16:00-0400Body walwolxhkvc11.3 [degF][facility] 01[facility]07-21-2022 16:00-0400 Diastolic blood dauwkpge47 mm[Hg][facility] 01[facility]07-21-2022 16:00-0400Heart rate89 /minMth 01[facility]ON [facility]07-21-2022 16:00-0400 Respiratory rate20 /minMth 01[facility]07-21-2022 16:00-0400 Systolic blood svexcifq610 mm[Hg][facility] 01[facility]07-20-2022 16:03-0400Body rvgkyhwdfpt52.6 [degF][facility] 01[facility]07-20-2022 16:03-0400Diastolic blood mm[Hg][facility] 01[facility] 09-22-2021 16:03-0400Heart rate90 /minMth 01[facility]ON [facility]07-20-2022 16:03-0400Respiratory rate20 /minMth 01[facility]07-20-2022 16:03-0400Systolic blood shahezvs790 mm[Hg][facility] 01[facility] 09-21-2021 16:00-0400Body iueztmrtnjg31.1 [degF][facility] 01[facility] 09-21-2021 16:00-0400Diastolic blood bfrfbbio50 mm[Hg][facility] 01[facility]iGlueGAOFSV45-56-6990 16:00-0400Heart rate88 /minMth 01[facility] 09-21-2021 16:00-0400Systolic blood fyilvkov041 mm[Hg][facility] 01[facility]07-18-2022 16:30-0400Body qfawcxukxrb13.49 [degF][facility] 01[facility]07-18-2022 16:30-0400Diastolic blood mm[Hg][facility] 01[facility]07-18-2022 16:30-0400Heart rate84 /minMth 01[facility] 09-20-2021 16:30-0400Systolic blood itbqbgoj489 mm[Hg][facility] 01[facility]07-17-2022 17:11-0400Body kfhipmqxdgk12.3 [degF][facility] 01[facility]07-17-2022 17:11-0400Diastolic blood qbeljxix32 mm[Hg][facility] 01[facility]07-17-2022 17:11-0400Heart rate90 /minMth 01[facility] 09-19-2021 17:11-0400Systolic blood xtlwtvuc345 mm[Hg][facility] 01[facility]07-16-2022 16:00-0400Body vfxtpsvnanz78.81 [degF][facility] 01[facility]07-16-2022 16:00-0400Diastolic blood pqyilgvp77 mm[Hg][facility] 01[facility]07-16-2022 16:00-0400Heart rate92 /minMth 01[facility] 09-18-2021 16:00-0400Respiratory rate18 /minMth 01[facility] 09-18-2021 16:00-0144HiD6% (BldA) [Mass fraction]97 %[facility] 01[facility]07-16-2022 16:00-0400Systolic blood mm[Hg][facility] 01[facility]07-15-2022 16:09-0400Body dojzgopjcei00.7 [degF][facility] 03[facility]07-15-2022 16:09-0400Diastolic blood adtdvsoq47 mm[Hg][facility] 03[facility]07-15-2022 16:09-0400Heart rate88 /minMth 03[facility]WTAZKL40-04-2218 16:09-0400Respiratory rate18 /minMth 03[facility] SECMARIA E[facility]ITALBNJETW61-30-7392 16:09-0400Systolic blood mqonzwrs841 mm[Hg][facility] 03[facility]ITALECFBYI38-01-1584 16:09-0400Body crkklriqakw27.71 [degF][facility] 03[facility]ON SECMARIA ELENA [facility]ITALKAHJXB29-61-5012 16:09-0400Diastolic blood opejdkqi74 mm[Hg][facility] 03[facility]ITALNJEVNH79-38-5235 16:09-0400Heart rate94 /minMth 03[facility]ITALCYROSR85-61-6170 16:09-0400Respiratory rate18 /minMth 03[facility]ITALCNVBTO80-11-8414 16:09-0400Systolic blood yypaaqkj112 mm[Hg][facility] 03[facility]ON [facility]07-12-2022 15:25-0400Body dhocpgrdhzz36.59 [degF][facility] 03[facility]ON [facility]07-12-2022 15:25-0400Diastolic blood quzdopvm45 mm[Hg][facility] 03[facility]ON [facility]07-12-2022 15:25-0400Heart rate84 /minMth 03[facility]ON [facility]07-12-2022 15:25-0400Respiratory rate18 /minMth 03[facility]ON [facility]07-12-2022 15:25-0400Systolic blood zmtnujbc234 mm[Hg][facility] 03[facility]ON [facility]07-11-2022 16:28-0400Body aegpiejvsea51.7 [degF]Jared Hernandez MD Work Phone: [facility]07-11-2022 16:28-0400Diastolic blood lovobykn54 mm[Hg]Jared Hernandez MD Work Phone: [facility]07-11-2022 16:28-0400Heart rate80 /minJared Hernandez MD Work Phone: [facility]07-11-2022 16:28-0400 Respiratory rate18 /minJared Hernandez MD Work Phone: [facility]ESpin[facility]iGlueFLENQE82-86-2445 16:28-0818OcH0% (BldA) [Mass fraction]98 %Jared Hernandez MD Work Phone: [facility]ESpin[facility]iGluePQPZCR86-84-6361 16:28-0400Systolic blood mm[Hg]Jared Hernandez MD Work Phone: [facility]iGlueUEAXRP53-33-2840 11:41-0400Body uxtrvwngczy30.71 [degF]Myke Soliz DO Work Phone: [facility]FR[facility]USSpin[facility]iGlueMZRPKN24-08-8450 11:41-0400Diastolic blood vowouvxr24 mm[Hg]Myke Soliz DO Work Phone: [employer] [facility]iGlueYERRQX81-11-6181 11:41-0400Heart rate75 /minMyke Soliz DO Work Phone: BFR[facility]USSpin[facility] Technologies [facility]iGlueAUPWFP41-62-5180 11:41-0400 Respiratory rate18 /minMyke Soliz DO Work Phone: BFR[facility]USSpin[facility] Technologies [facility]iGluePEMZBL59-84-0879 11:41-9172UsO9% (BldA) [Mass fraction]94 %Myke Soliz DO Work Phone: [facility]iGlueCNJEHA04-72-5756 11:41-0400Systolic blood bswsotqh523 mm[Hg]Myke Soliz DO Work Phone: [facility] [employer] [facility]iGlueHRBNHK54-20-1728 04:13-0400Body mass index (BMI) [Ratio]39.92 kg/z8FnqdnftMyke Soliz DO Work Phone: [facility] [employer]07-09-2022 04:13-0400Body ixbjpn882.5 kgWijessica Soliz DO Work Phone: [facility] [employer]07-05-2022 14:37-0400Body ipwavf566.6 cmWijean carloskenyon Soliz DO Work Phone: bASTRID [facility]06-25-2022 23:12-0400Diastolic blood hmcfahbq506 mm[Hg]PHYSICIAN NO [facility] 08-28-2021 23:12-0400Heart jqnr507 /minPHYSICIAN [facility]06-25-2022 23:12-0400Respiratory rate15 /minPHYSICIAN [facility]06-25-2022 23:12-3064MsY5% (BldA) [Mass fraction]95 %PHYSICIAN NO [facility]06-25-2022 23:12-0400Systolic blood mm[Hg]PHYSICIAN [facility]06-25-2022 18:44-0400Body zfnapy239.56 cmPHYSICIAN [facility]06-25-2022 18:44-0400Body mass index (BMI) [Ratio]41.3 kg/g7GYRZCDKCR [facility]06-25-2022 18:44-0400Body .2 kgPHYSICIAN [facility]06-25-2022 18:32-0400Body jiqjnajwsyr48.1 [degF]PHYSICIAN NO [facility] Encounters Encounter DateEncounter TypeCare ProviderFacilityStart: 01-02-2025 End: 92-05-8884VfgjhyItlwrhu Boggs CMAProMedica Physicians Internal Medicine - Family MedicineComment on above:Anxiety and depressionStart: 12-30-2024 End: 04-24-8338iexmsxmnksAFOR D IRENETuscarawas Hospital Ambulatory PPGStart: 12-30-2024 End: 08-83-5327Tzzyyk outpatient visit 25 minutesKyanny Buckner APRN-SINGLE WIRE SAW OPERATOR Work Phone: [facility] - Family MedicineComment on above:Screen for STD (sexually transmitted disease) (Primary Dx); Type 2 diabetes mellitus with stage 3 chronic kidney disease and hypertension ([facility]); Primary hypertension; Loose stools; Moderate episode of recurrent major depressive disorder ([facility]); Class 3 severe obesity due to excess calories with serious comorbidity and body mass index (BMI) of40.0 to 44.9 in adult ([facility])Start: 12-24-2024 End: 65-15-6614TrvdvkNjyw L Yuclarissathor DO Work Phone: [facility] Internal Medicine - Family MedicineComment on above:Mixed hyperlipidemiaStart: 11-14-2024 End: 95-10-5859rnzgsmbbibCIEJ Y JUNProMedica Barcenas HospitalStart: 10-02-2024 End: 97-19-3051Eotvuuwas encounterMattqian Abilio Nava DO Work Phone: [facility] 230Comment on above: Appointment RequestStart: 10-01-2024 End: 68-70-6277ZyryivEeznckd Boggs [facility] HEALTHProMedica Physicians Internal Medicine - Family MedicineComment on above:Mixed hyperlipidemiaStart: 08-09-2024 End: 04-57-3323Fciihxgtv encounterPrincess SegundoMedica Physicians Internal Medicine - Family MedicineStart: 08-08-2024 End: 96-80-6438Cwbarmxev encounterPrincess Grier CMAProMedica Physicians Internal Medicine - Family MedicineStart: 07-09-2024 End: 04-29-8292Tbiycvawl encounterMistjed Gary [facility] HEALTHProMedica Physicians Internal Medicine - Family MedicineStart: 06-16-2024 End: 28-55-3851VcfzooXgffhdfNelly Khanna APRN-SINGLE WIRE SAW OPERATOR Work Phone: [facility] Internal Medicine - Family MedicineComment on above:Seasonal allergic rhinitis due to pollenStart: 06-10-2024 End: 41-61-2682Yeglro outpatient visit 25 minutesJose Khanna APRN-SINGLE WIRE SAW OPERATOR Work Phone: [facility] Internal Medicine - Family MedicineComment on above:Uncontrolled type 2 diabetes mellitus with hyperglycemia ([facility]) (Primary Dx); Type 2 diabetes mellitus with microalbuminuria, without long-term current use of insulin ([facility]); Anxiety and depression; Type 2 diabetes mellitus with stage 3 chronic kidney disease and hypertension ([facility])Start: 06-10-2024 End: 48-70-9671urpesthphdQERYFJICHRISTUS [facility] Start: 05-30-2024 End: 45-22-1318UecjecNnwtbcwNelly MENDEZ Work Phone: [facility] Physicians Internal Medicine - Family MedicineStart: 05-29-2024 End: 84-05-8841XzbqdwScwtvafNelly MENDEZ Work Phone: [facility] Internal Medicine - Family MedicineComment on above:Moderate episode of recurrent major depressive disorder ([facility])Start: 04-21-2024 End: 60-40-8127rakzqpjqqkAqivx Cancelliere RNPAllen Parish Hospital Call CenterStart: 04-02-2024 End: 75-25-3893WakpdsUbjisgnNelly MENDEZ Work Phone: [facility] Internal Medicine - Family MedicineComment on above:Uncontrolled type 2 diabetes mellitus with hyperglycemia ([facility]); Type 2 diabetes mellitus with stage 3 chronic kidney disease and hypertension ([facility]); Type 2 diabetes mellitus with microalbuminuria, without long-term current use of insulin ([facility])Start: 03-20-2024 End: 70-44-6312lzwgfmownqAWGJCincinnati Shriners Hospitaltart: 03-20-2024 End: 54-39-6931ccpaderkmzSTTP YParma Community General Hospitaltart: 02-29-2024 End: 88-44-7488Swrjvp outpatient visit 25 Tanja MENDEZ Work Phone: [facility] Phys[facility] Internal Medicine - Family MedicineComment on above:Uncontrolled type 2 diabetes mellitus with hyperglycemia (CMS-HCC) (Primary Dx); Type 2 diabetes mellitus with microalbuminuria, without long-term current use of insulin (CMS-HCC); Type 2 diabetes mellitus with stage 3 chronic kidney disease and hypertension (CMS-HCC)Start: 02-29-2024 End: 77-17-2925walmviybnwROHXTOWUT [facility] PPG Start: 02-13-2024 End: 99-92-3023ynvcuudpmcDNMPNCoshocton Regional Medical Centertart: 02-13-2024 End: 50-29-9503Wcywzrpqc therapyRooks County Health Center Work Phone: [facility] - Diabetes and Nutrition EducationComment on above:Type 2 diabetes mellitus with other diabetic kidney complication ([facility]); Essential hypertension, malignant; Stage 3 chronic kidney disease, unspecified whether stage 3a or 3b CKD ([facility]); Morbid obesity ([facility])Start: 01-16-2024 End: 16-68-1277Amoxbaybl encounterJose Khanna APRN-JOSE Work Phone: [facility] - Diabetes Start: 01-16-2024 End: 23-82-0303tsozedbvybUCYDWCYEvergreenHealth Ambulatory PPG Start: 01-16-2024 End: 43-38-5086Nmrlne outpatient visit 15 minutesJose Khanna APRN-JOSE Work Phone: [facility] Physicians Internal Medicine - Family MedicineComment on above:Type 2 diabetes mellitus with microalbuminuria, without long-term current use of insulin ([facility])Start: 12-31-2023 End: 86-42-9976aovguowcsbVoscm Love RNProMedica Call CenterStart: 12-31-2023 End: 01-99-0396Xfgoljzfq department patient visitHOLLYWOODHERMELINDA Alonso [facility] Main Campustart: 12-29-2023 End: 97-60-5211FalhkhYdjto Gary [facility] HEALTHProMedica Physicians Internal Medicine - Family MedicineComment on above:Mixed hyperlipidemiaStart: 11-29-2023 End: 78-40-4408Fgriyjqdm encounterBethany Forrider CMAProMedica Physicians Internal Medicine - Family MedicineStart: 11-27-2023 End: 80-28-1988Htexwa OnlyJose Khanna APRN-JOSE Work Phone: [facility] Phys[facility] Internal Medicine - Family MedicineStart: 11-27-2023 End: 50-30-5059OdegztPspbogbNelly Khanna APRN-JOSE Work Phone: [facility] Phys[facility] Internal Medicine - Family MedicineComment on above:Type 2 diabetes mellitus with microalbuminuria, without long-term current use of insulin ([facility])Start: 11-24-2023 End: [id number] Khanna APRN-[employer]W OPERATOR Work Phone: [facility] Internal Medicine - Family MedicineComment on above:Type 2 diabetes mellitus with microalbuminuria, without long-term current use of insulin ([facility])Start: 11-23-2023 End: [id number] J CASTILLOProMedica [facility] Centertart: 11-23-2023 End: [id number] outpatient visit 25 minutesJose Khanna APRN-JOSE Work Phone: [facility] Internal Medicine - Family MedicineComment on above:Type 2 diabetes mellitus with microalbuminuria, without long-term current use of insulin ([facility]) (Primary Dx); Moderate episode of recurrent major depressive disorder [facility] [facility] Mixed hyperlipidemia; Seasonal allergic rhinitis due to pollen; Type 2 diabetes mellitus with stage 3 chronic kidney disease and hypertension ([facility]); Anxiety and depression; Comprehensive diabetic foot examination, type 2 DM, encounter for ([facility]) Start: 11-13-2023 End: 14-57-4214ZtpbyrAgjed [facility] Internal Medicine - Family MedicineComment on above:Moderate episode of recurrent major depressive disorder ([facility]); Type 2 diabetes mellitus with stage 3 chronic kidney disease and hypertension ([facility])Start: 10-20-2023 End: 70-91-1736GnopygJxwo [facility] HospitalMed[facility]icians Internal Medicine - Family MedicineComment on above:Type 2 diabetes mellitus with microalbuminuria, without long-term current use of insulin ([facility])Start: 10-04-2023 End: 35-04-2704Vcytiwgd SupportJose Khanna APRN-SINGLE WIRE SAW OPERATOR Work Phone: [facility] Internal Medicine - Family MedicineStart: 10-01-2023 End: 40-37-3072RhrrsuNmepazMarcin Carrera APRN-SINGLE WIRE SAW OPERATOR Work Phone: [facility] Internal Medicine - Family MedicineStart: 09-20-2023 End: 37-83-9138Sqxlia outpatient visit 15 minutesJose Khanna APRN-SINGLE WIRE SAW OPERATOR Work Phone: [facility] Internal Medicine - Family MedicineComment on above:Folliculitis (Primary Dx)Start: 09-05-2023 End: 72-89-2178toqylzexiuEGEAFAV J CASTILLOMerCleveland Clinic [facility] Hospital HospitalStart: 07-25-2023 End: 84-87-8455Ehdvcdioo encounterJose Khanna APRN-SINGLE WIRE SAW OPERATOR Work Phone: [facility] Internal Medicine - Family MedicineStart: 07-19-2023 End: 28-50-3070Fehvpb OnlyJose Khanna DIRECTOR PRODUCT-SINGLE WIRE SAW OPERATOR Work Phone: [facility] Internal Medicine - Family MedicineComment on above:Type 2 diabetes mellitus with microalbuminuria, without long-term current use of insulin ([facility]) (Primary Dx)Start: 07-18-2023 End: 85-49-2047Pcnazx outpatient visit 25 minutesJose Khanna DIRECTOR PRODUCT-SINGLE WIRE SAW OPERATOR Work Phone: [facility] Internal Medicine - Family MedicineComment on above:Type 2 diabetes mellitus with microalbuminuria, without long-term current use of insulin (CMS-HCC) (Primary Dx); Primary hypertension; Current moderate episode of major depressive disorder without prior episode (CMS-HCC); Mixed hyperlipidemiaStart: 06-26-2023 End: 22-56-5536Iyaunxgo SupportJose Khanna DIRECTOR PRODUCT-SINGLE WIRE SAW OPERATOR Work Phone: [facility] Internal Medicine - Family MedicineComment on above:Type 2 diabetes mellitus with microalbuminuria, without long-term current use of insulin ([facility]) (Primary Dx)Start: 06-20-2023 End: 82-85-2662jzrojzwlhkETAKPIJC M TALEBSouthern [facility] HospitalStart: 06-14-2023 End: 30-00-4822OalicxYscbbrk J Castillo DIRECTOR PRODUCT-SINGLE WIRE SAW OPERATOR Work Phone: [facility] Internal Medicine - Family MedicineStart: 06-14-2023 End: 08-72-7638Ncjvlq outpatient visit 10 minutesJeannabonillahaleigh Gavin Khanna APRN-SINGLE WIRE SAW OPERATOR Work Phone: [facility] Internal Medicine - Family MedicineComment on above:Type 2 diabetes mellitus with microalbuminuria, without long-term current use of insulin (CMS-HCC) (Primary Dx)Start: 05-30-2023 Telephone encounterMistjed Vega [facility] Internal Medicine - Family MedicineStart: 05-10-2023 End: 59-08-3322Bheqrm outpatient visit 25 minutesJose Khanna APRN-SINGLE WIRE SAW OPERATOR Work Phone: [facility] Internal Medicine - Family MedicineComment on above:Uncontrolled type 2 diabetes mellitus with hyperglycemia (CMS-HCC) (Primary Dx); Moderate episode of recurrent major depressive disorder (CMS-HCC)Start: 89-00-0525Fllezd Lubna Carrera APRN-[facility] Work Phone: [facility] Internal Medicine - [facility] MedicineStart: 05-05-2023 End: 13-59-6752Zmalnf outpatient visit 25 SHERPA assistantTereza Carrera APRN-SINGLE WIRE SAW OPERATOR Work Phone: [facility] Internal Medicine - Family MedicineComment on above:Type 2 diabetes mellitus with microalbuminuria, without long-term current use of insulin (CMS-HCC) (Primary Dx); Fasting hyperglycemiaStart: 04-19-2023 End: 46-39-3014Icwruo outpatient visit 25 minutesJose Khanna APRN-[facility] Work Phone: [facility] Internal Medicine - Family MedicineComment on above:Type 2 diabetes mellitus with microalbuminuria, without long-term current use of insulin (CMS-HCC) (Primary Dx); Type 2 diabetes mellitus with stage 3 chronic kidney disease and hypertension (CMS-HCC); Anxiety and depression; Snoring; Mixed hyperlipidemiaStart: 04-03-2023 End: 89-19-8355xwistkkeqyUQWEUE Ursula KANGSNhan AvailableStart: 18-37-9983Kveiin Latonia Merino DIRECTOR PRODUCT-[facility] Work Phone: [facility] Internal Medicine - Family MedicineComment on above:Lesion of tongue (Primary Dx)Start: 03-28-2023 End: 06-27-4473Vavcyw outpatient visit 15 minutesEliana Wilkinson Wilber COOPER-BANK TELLER Work Phone: [facility] Internal Medicine - Family MedicineComment on above:Lesion of tongue (Primary Dx)Start: 71-15-1891Wzsgxqsherman Khanna APRN-SINGLE WIRE SAW OPERATOR Work Phone: [facility] Physicians Family MedicineComment on above: Seasonal allergic rhinitis due to pollenStart: 03-08-2023 End: 83-67-7526Mmszye outpatient visit 25 minutesJose Khanna APRN-SINGLE WIRE SAW OPERATOR Work Phone: [facility] Internal Medicine - Family MedicineComment on above:Type 2 diabetes mellitus with microalbuminuria, without long-term current use of insulin ([facility]) (Primary Dx); Mixed anxiety and depressive disorder; Mixed hyperlipidemia; Stage 3b chronic kidney disease ([facility])Start: 12-21-2022 End: 76-59-5077skfvtrxdvtSDWBFILGB S FEDERICORMercy Escalon HospitalStart: 11-08-2022 End: 81-11-9171igsxetchohGFQGHSZTC S [facility] PHOENIXRMgiovanniSelect Medical [facility] HospitalStart: 10-21-2022 End: 88-13-2910idpopmknrfPHLEAPQ J CASTILLOUc Health Start: 10-06-2022 End: 44-45-7665gwmefhzugaRUMMUSS J CASTILLOCleveland Clinic Foundation HospitalStart: 10-04-2022 End: 19-37-7979hnsinzazgbRFKMZGFCA S FEDERICOreagan Escalon HospitalStart: 08-15-2022 End: 65-55-0096Nuiacimqot hospital [facility] by [facility] Cardiopul[facility] Rehab Rm 3 MTHZ Cardiac RehabComment on above:Canceled (Patient)Start: 08-09-2022 End: 13-95-7506Yiebylzzxo hospital visit by Luz Christina CNP Work Phone: mthz LaboratoryComment on above:Acute kidney injury superimposed on CKD (HCC); Avitaminosis D; Anemia of chronic renal failure, unspecified CKD stage; Hypercalcemia; Hyperparathyroidism (HCC); Stage 3 chronic kidney disease, unspecified whether stage 3a or 3b CKD (HCC); Acute kidney injury (HCC); Dilated cardiomyopathy (HCC); Primary hypertensionStart: 07-25-2022 End: 33-58-1218btopzexgrxJMWLRNewark Hospitaltart: 07-18-2022 End: 93-36-6863Onuhenlcdx hospital visit by [facility] Cardiopulm Rehab Rm 3 MTHZ Cardiac RehabComment on above:ArrivedStart: 07-13-2022 End: 28-09-4505Pdtxqsqcdd hospital visit by [facility] Cardiopulm Rehab Rm 3 MTHZ Cardiac RehabComment on above:ArrivedStart: 07-11-2022 End: 55-55-4356Rxrxoywoyw hospital visit by [facility] Cardiopulm Rehab Rm 3 MTHZ Cardiac RehabComment on above:ArrivedStart: 07-07-2022 End: 66-54-5340Sokmwddswy hospital visit by [facility] Cardiopulm Rehab Rm 3 MTHZ LaboratoryComment on above:Acute kidney injury (HCC); Hypercalcemia; Dilated cardiomyopathy (HCC); Primary hypertensionArrivedStart: 07-04-2022 End: 02-33-1574Nemswgpsua hospital visit by [facility] Cardiopulm Rehab Rm 3 MTHZ Cardiac RehabComment on above:ArrivedStart: 05-23-2022 End: 93-52-1033Ofdaqpvtmd and management of inpatientMopenn state health holy spirit medical centerpema Zapata DO Work Phone: stvz Car 2- StepdownStart: 05-23-2022 End: 47-23-7445ehssofdomeTHGBC PARKERFacility:J0Mkykz: 10-06-2021 End: 85-71-5712Jbjtvzodml hospital visit by Tex Liang [facility] Onc Comment on above:HypercalcemiaStart: 09-28-2021 End: 28-78-0797Bkhcckablz hospital visit by physicianMoh[facility]ic [facility] Hospital Op Treatment Rm 01MTHZ LaboratoryComment on above:Acute kidney injury (HCC); Hypercalcemia; Dilated cardiomyopathy (HCC); Primary hypertensionSepsis due to Streptococcus species without acute organ dysfunction (HCC) (Primary Dx)Start: 09-25-2021 End: 40-43-7442Crfnsbyhdo hospital visit by physicianMoh[facility] Op Treatment [address] [facility] (MOB)Comment on above:Sepsis due to Streptococcus species without acute organ dysfunction (HCC) (Primary Dx)Start: 09-24-2021 End: 88-66-0542Vzcpokgxem hospital visit by physicianMoh[facility] Op Treatment [address] [facility] (MOB)Comment on above:Sepsis due to Streptococcus species without acute organ dysfunction (HCC) (Primary Dx)Start: 09-23-2021 End: 05-06-4192Rselivylho hospital visit by physicianMoh[facility] Op Treatment [address] [facility] (MOB)Comment on above:Sepsis due to Streptococcus species without acute organ dysfunction (HCC) (Primary Dx)Start: 09-22-2021 End: 24-48-5485Mlxjibpjtk hospital visit by physicianMoh[facility] Op Treatment [address] [facility] (MOB)Comment on above:Sepsis due to Streptococcus species without acute organ dysfunction (HCC) (Primary Dx)Start: 09-21-2021 End: 29-10-8195Dcesaadfxb hospital visit by physicianMoh[facility] Op Treatment [address] [facility] (MOB)Comment on above:Sepsis due to Streptococcus species without acute organ dysfunction (HCC) (Primary Dx)Start: 09-20-2021 End: 68-18-9503Uogokkjuvb hospital visit by physicianMoh[facility] Op Treatment [address] [facility] (MOB)Comment on above:Sepsis due to Streptococcus species without acute organ dysfunction (HCC) (Primary Dx)Start: 09-19-2021 End: 29-11-9246Vcpcxcppak hospital visit by physicianMoh[facility] Op Treatment [address] [facility] ([facility]B)Comment on above:Sepsis due to Streptococcus species without acute organ dysfunction (HCC) (Primary Dx)Start: 09-18-2021 End: 58-67-7708Vhyugajali hospital visit by physicianMoh[facility] Op Treatment [address] [facility] (MOB)Comment on above:Sepsis due to Streptococcus species without acute organ dysfunction (HCC) (Primary Dx)Start: 09-17-2021 End: 06-84-9535Atrfiskdmk hospital visit by physicianMoh[facility] Op Treatment Rm 03MTHZ [facility] (MOB)Comment on above:Sepsis due to Streptococcus species without acute organ dysfunction (HCC) (Primary Dx)Acute kidney injury (HCC) Start: 09-15-2021 End: 17-83-2349Suzlnnhpxl hospital visit by physicianMoh[facility] Op Treatment Rm 03MT [facility] ([facility]B)Comment on above:Sepsis due to Streptococcus species without acute organ dysfunction (HCC) (Primary Dx)Start: 09-14-2021 End: 16-25-5129Yvjcchinvb hospital visit by physicianMoh[facility] Op Treatment 03MT [facility] ([facility])Comment on above:Sepsis due to Streptococcus species without acute organ dysfunction (HCC) (Primary Dx)Start: 09-13-2021 End: 45-38-8859Gkeeiygjyv hospital visit by Hiro Hernandez MD Work Phone: stvz 3C Med SurgComment on above:Sepsis due to Streptococcus species without acute organ dysfunction (HCC) (Primary Dx)Start: 08-29-2021 End: 98-31-3141Qjqxidyrta and management of inpatientWilliam Martínez DO Work Phone: stvz 4B StepdownStart: 08-28-2021 End: 89-64-2228Radgueuvx department patient visitBasilio Sam [facility]: 08-28-2021 End: 04-03-8961Pctxjffyv department patient visitPHYSICIAN [facility] Procedures DateProcedureProcedure DetailPerforming ClinicianStart: 76-69-6472Deodx depression screening assessmentSheng Buckner DIRECTOR PRODUCT-SINGLE WIRE SAW OPERATOR Work Phone: Start: 41-99-9307Mxmngqubhs glycosylated a6zPryydpf Gavin Khanna DIRECTOR PRODUCT-SINGLE WIRE SAW OPERATOR Work Phone: Start: 04-27-6989Nlxmzikafh glycosylated p1uAuixrfm Gavin Khanna DIRECTOR PRODUCT-SINGLE WIRE SAW OPERATOR Work Phone: Start: 06-47-2280Arnzj depression screening assessment Jose Khanna DIRECTOR PRODUCT-SINGLE WIRE SAW OPERATOR Work Phone: Start: 20-54-2325ATR REFERRAL TO DIABETIC EDUCATION Jacob Divina Sharonsidra DO Work Phone: Start: 02-23-4519Dagsha-up visitFollow-upVALEHERMELINDA KHANNAStart: 70-65-5815Unthh depression screening assessmentJose Khanna DIRECTOR PRODUCT-SINGLE WIRE SAW OPERATOR Work Phone: Start: 93-42-5388Wzgobjvfio glycosylated w3hQaxsgsnhermelinda Khanna APRN-SINGLE WIRE SAW OPERATOR Work Phone: Start: 16-72-1104Qesaz depression screening assessment Jose Khanna APRN-SINGLE WIRE SAW OPERATOR Work Phone: Start: 37-20-5842Gvdrm depression screening assessment Jose Khanna APRN-SINGLE WIRE SAW OPERATOR Work Phone: Start: 21-12-1755Lqrhtvktnr glycosylated o3bAitewzxhermelinda Khanna DIRECTOR PRODUCT-SINGLE WIRE SAW OPERATOR Work Phone: Start: 84-75-0154Iumro depression screening assessment Jose Khanna APRN-SINGLE WIRE SAW OPERATOR Work Phone: Start: 11-85-0403Dsxsi depression screening assessment Tereza Carrera APRN-SINGLE WIRE SAW OPERATOR Work Phone: Start: 21-99-7725Ptwqa depression screening assessment Tereza Carrera APRN-SINGLE WIRE SAW OPERATOR Work Phone: Start: 86-15-2260Amzeg depression screening assessment Jose Khanna APRN-SINGLE WIRE SAW OPERATOR Work Phone: Start: 50-49-1456Rwkhy depression screening assessment Eliana Merino APRN-BANK TELLER Work Phone: Start: 75-80-7801Acpadetdkt glycosylated g7lTffjzjvhermelinda Khanna DIRECTOR PRODUCT-SINGLE WIRE SAW OPERATOR Work Phone: Start: 43-11-1081Snnsp depression screening assessment Jose Khanna APRN-SINGLE WIRE SAW OPERATOR Work Phone: Start: 08-09-2022 End: 26-92-9134Arelm metabolic panel calcium totalBalhinder S Maggie MD Work Phone: Start: 58-11-5054Velwasbaygfy [Mass/volume] in Urine by Test stripJose PECKSINGLE WIRE SAW OPERATOR Work Phone: Start: 06-29-2656Ngchx metabolic panel calcium total Martin Serrano MD Work Phone: Start: 98-92-5748Qgsxemo of coronary artery bypass graftingS/P CABG (coronary artery bypass graft)Mth 3Start: 55-80-1292Jviqkxj blood reagent Elyssa Purdy MD Work Phone: [phone]: 06-06-2022 End: 37-33-2307Pqvif metabolic panel calcium Rebecca Purdy MD Work Phone: [phone]: 85-61-2046Gjhsbrcnhe exam chest single viewAdam M Shamir SOLIS Work Phone: [phone]: 80-82-3565Jkfvold blood reagent Elyssa Purdy MD Work Phone: [phone]: 62-91-1597Hxqitglijh exam chest single view Eddie Machado APRN - HEAD MACHINIST Work Phone: [phone]: 58-30-1031Qwwuzlu blood reagent Elyssa Purdy MD Work Phone: [phone]: 26-64-6739Ibfnsaq blood reagent Elyssa Purdy MD Work Phone: [phone]: 75-70-7040Kjtsszrret exam chest single viewAdam M Shamir PA Work Phone: [phone]: 30-09-9386Eednq metabolic panel calcium total Ariel Purdy MD Work Phone: [phone]: 37-91-2638Urlstcg blood reagent Elyssa Purdy MD Work Phone: [phone]: 41-61-1820Ywzzxsx blood reagent Elyssa Purdy MD Work Phone: [phone]: 06-04-2022 End: 21-32-4991Ulyuyeu ionizedSyed Nasra Remigio ANN Work Phone: Start: 06-04-2022 End: 23-70-9928Jakno metabolic panel calcium Rebecca Purdy MD Work Phone: Start: 34-89-0692Tkzr screen quantitative vancomycin Talib Saldaña MD Work Phone: Start: 39-85-8362Mpblnivqjo exam chest single viewAdam M Shamir SOLIS Work Phone: Start: 09-46-9341Xwrutzh blood reagent stripAriel Purdy MD Work Phone: Start: 51-78-6271MIDCI METABOLIC PANEL W/ REFLEX TO MG FOR LOW Yancy Saldaña MD Work Phone: Start: 99-39-5340Schv screen quantitative vancomycin Talib Saldaña MD Work Phone: Start: 61-11-9902Wggodeh blood reagent stripAriel Purdy MD Work Phone: Start: 38-86-9414Lfcbqvp blood reagent Elyssa Purdy MD Work Phone: Start: 78-94-1581Wylfghi blood reagent Elyssa Purdy MD Work Phone: Start: 87-52-4405Wkafjjb blood reagent stripSaga Mercer MD Work Phone: Start: 40-83-4508Mepvwemf screenMohammad Brittneydamirjose DO Work Phone: Start: 63-56-0973Xikixbi blood reagent stripSaga Mercer MD Work Phone: Start: 83-96-9272Kaawdsozeb exam chest single viewAdam M Shamir SOLIS Work Phone: Start: 06-03-2022 End: 06-57-8739Dkbtd metabolic panel calcium totalAriel Purdy MD Work Phone: Start: 06-03-2022 End: 49-65-1516WDJLMVUG BLOOD GAS, Ranjeet Mercer MD Work Phone: Start: 06-03-2022 End: 53-36-0649Ppwl bld gluc mntr dev cleared fda spec home useSaga Mercer MD Work Phone: Start: 75-38-4246DBROKO ACID,POINT OF Ryan Mercer MD Work Phone: Start: 98-04-4201QLPKORZI BLOOD GAS, Ranjeet Mercer MD Work Phone: Start: 06-02-2022 End: 79-33-6661Cdcj bld gluc mntr dev cleared fda spec home Brina Mercer MD Work Phone: Start: 15-16-1965SMKLJG ACID,Osmany Mercer MD Work Phone: Start: 67-65-1131Onxgakw blood reagent stripSaga Mercer MD Work Phone: Start: 06-02-2022 End: 06-88-0891Koymsxg ionizedDaniel Jasmyn ANN Work Phone: Start: 61-41-6462Ryeicisewz exam chest single viewAdam M Shamir SOLIS Work Phone: Start: 06-02-2022 End: 19-69-5647Oaplc metabolic panel calcium totalAdam M Shamir SOLIS Work Phone: Start: 00-51-5046SGYPNNGF BLOOD GAS, Ranjeet Mercer MD Work Phone: Start: 11-25-4611QUYQOFR, IONIC (POC)Solange Mercer MD Work Phone: Start: 62-91-4764OTNOYOOYIL W/GFR POINT OF Ryan Mercer MD Work Phone: Start: 04-97-6655BJGHEUUGXCMG PLUSSolange Mercer MD Work Phone: Start: 60-48-6682WBACIA ACID,POINT OF CARESolange Mercer MD Work Phone: Start: 20-93-0388MIQ GLOBAL HEMOSTASIS (TEG 6S)Solange Mercer MD Work Phone: Cbart: 06-02-2022 End: 41-42-0578UDUCLUYZ BLOOD GAS, POCSolange Mercer MD Work Phone: Start: 06-02-2022 End: 90-00-6762UXQIBZP, IONIC (POC)Solange Mercer MD Work Phone: Start: 06-02-2022 End: 24-09-8023Rsjs bld gluc mntr dev cleared fda spec home useSaga Mercer MD Work Phone: start: 06-02-2022 End: 17-08-7922Wgnqrnzme [Moles/volume] in Serum or PlasmaSolange Mercer MD Work Phone: Start: 06-02-2022 End: 04-95-2564Dwgyoy [Moles/volume] in Serum or PlasmaSolange Mercer MD Work Phone: start: 06-02-2022 End: 26-21-2176CLISHDBZ BLOOD GAS, Ranjeet Mercer MD Work Phone: start: 06-02-2022 End: 62-32-7674EBFBKYG, IONIC (POC)Solange Mercer MD Work Phone: Start: 06-02-2022 End: 82-95-1220Temq bld gluc mntr dev cleared fda spec home Brina Mercer MD Work Phone: Start: 06-02-2022 End: 52-66-1666Vitzacapo [Moles/volume] in Serum or PlasmaSolange Mercer MD Work Phone: start: 06-02-2022 End: 65-74-3504Ydjfos [Moles/volume] in Serum or PlasmaSolange Mercer MD Work Phone: Start: 27-50-8916NWB GLOBAL HEMOSTASIS (TEG 6S)Solange Mercer MD Work Phone: Start: 22-75-9714ZZMUD GAP (CALC) Ranjeet Mercer MD Work Phone: Start: 24-70-3802GTBIRUIU BLOOD GAS, POCSolange Mercer MD Work Phone: Start: 27-73-9969LDBEFMB, IONIC (POC)Solange Mercer MD Work Phone: Start: 55-06-9978Eeajgxit [Moles/volume] in Serum or PlasmaSolange Mercer MD Work Phone: Start: 06-34-3014Pbdu bld gluc mntr dev cleared fda spec home useSaga Mercer MD Work Phone: Start: 29-40-9342Cvonfgvqb [Moles/volume] in Serum or PlasmaSolange Mercer MD Work Phone: Start: 71-98-1643Yumieg [Moles/volume] in Serum or PlasmaSolange Mercer MD Work Phone: Start: 06-02-2022 End: 86-88-3492Lohikies artery bypass 3 coronary venous graftsDavita Purdy MD Work Phone: Start: 96-63-5096Bwnahde blood reagent stripSaga Mercer MD Work Phone: Start: 95-60-3518Wuhlnio blood reagent stripSaga Mercer MD Work Phone: Start: 90-80-8606Jywsa metabolic panel calcium total Sarwat Preciado MD Work Phone: Start: 46-38-5908Kfstqgzhnssftm time partial plasma/whole bloodSolange Mercer MD Work Phone: Start: 15-11-5433Ugjjvoj blood reagent stripSaga Mercer MD Work Phone: Start: 06-01-2022 End: 44-82-6914Xtkoqxezedadip time partial plasma/whole bloodSolange Mercer MD Work Phone: Start: 39-95-3540Qgeqfjz blood reagent stripSaga Mercer MD Work Phone: Start: 75-27-6291Cpety metabolic panel calcium total Solange Mercer MD Work Phone: Start: 62-34-4417Slxpusp blood reagent stripSaga Mercer MD Work Phone: Start: 02-12-4112Nomyc count platelet automatedEugene Kent DO Work Phone: Start: 69-72-7573Okjiatr blood reagent stripSaga Mercer MD Work Phone: Start: 94-93-8280Dgrabjciergrnm time partial plasma/whole bloodSolange Mercer MD Work Phone: Start: 37-65-1141Qhfkimw blood reagent stripSaga Mercer MD Work Phone: Start: 22-35-2314Iql routine ecg w/least 12 lds i&r onlyDaryl Jeet Parsons MD Work Phone: start: 05-31-2022 End: 49-42-4354Sevzu metabolic panel calcium totalSolange Mercer MD Work Phone: Start: 68-67-4405Adxrarn blood reagent stripSaga Mercer MD Work Phone: Start: 03-34-9072DVVXXLXS BLOOD GAS, POCShpedro Mercer MD Work Phone: Start: 07-48-9577Xyry bld gluc mntr dev cleared fda spec home useSaga Mercer MD Work Phone: Start: 05-30-2022 End: 09-11-2820Vnjabfv bacterial quanttative colony count urineNicholas Leslie Carter DIRECTOR PRODUCT - HEAD MACHINIST Work Phone: Start: 68-25-6713Vxjjx typing serologic aboNicyazmin Machado DIRECTOR PRODUCT - HEAD MACHINIST Work Phone: Start: 05-30-2022 End: 42-10-3096Kpgjxuxoqh glycosylated i3lZhpmyveryazmin Machado DIRECTOR PRODUCT - HEAD MACHINIST Work Phone: Start: 32-55-1409Sdhinajjex microscopic onlyEddie Machado DIRECTOR PRODUCT - HEAD MACHINIST Work Phone: Start: 48-67-4623Vuanf dip stick/tablet rgnt auto w/o microscopyNicyazmin Machado DIRECTOR PRODUCT - HEAD MACHINIST Work Phone: Start: 75-30-8833Izmawxv blood reagent stripEugene Kent DO Work Phone: Start: 20-04-2217Orpxbvm blood reagent stripEugene Kent DO Work Phone: Start: 00-72-6084Fdggnirqcmihkb time partial plasma/whole bloodEugene Kent DO Work Phone: Start: 05-30-2022 End: 47-95-1504Qzekz count platelet automatedEugene Eknt DO Work Phone: Start: 71-27-0890Mdqndka blood reagent stripEugene Kent DO Work Phone: Start: 54-05-8422Rrraubm blood reagent stripEugene Kent DO Work Phone: Start: 67-44-8293Wujgxtj blood reagent stripEugene Kent DO Work Phone: Start: 41-83-0007TZMNL METABOLIC PANEL W/ REFLEX TO MG FOR LOW Yancy Saldaña MD Work Phone: Start: 05-29-2022 End: 73-20-7498Krnyyrwkufodil time partial plasma/whole bloodEugene Kent DO Work Phone: Start: 04-70-2334Gnxpjdb blood reagent stripEugene Kent DO Work Phone: Start: 51-93-4587Bnqiyqj blood reagent stripEugene Kent DO Work Phone: Start: 76-43-8658Rbiyfyv blood reagent stripEugene Kent DO Work Phone: Start: 94-03-7192Bmoisvoakmmxrd time partial plasma/whole bloodEugene Kent DO Work Phone: Start: 10-69-3453Equhwle blood reagent stripEugene Kent DO Work Phone: Start: 00-62-7376RHLFP METABOLIC PANEL W/ REFLEX TO MG FOR LOW Yancy Saldaña MD Work Phone: Start: 58-03-0116Ywdlf count platelet automatedEugene Kent DO Work Phone: Start: 05-27-2022 End: 97-64-4118Pzxjqcivqeuqbx time partial plasma/whole bloodEugene Kent DO Work Phone: Start: 82-25-1555Vdchmbq blood reagent stripEugene Kent DO Work Phone: Start: 92-61-4083Pgzjmpjzeqdvyn time partial plasma/whole bloodEugene Kent DO Work Phone: Start: 05-27-2022 End: 03-88-7565Qkuxghg ionizedMadeeva Preciado MD Work Phone: Start: 05-27-2022 End: 76-06-4688Jhb-scan uxtr art/artl bpgs compl bi Verónica SOLIS Work Phone: Start: 86-34-7073Crfdcp scan extracranial art compl bi Verónica SOLIS Work Phone: Start: 11-41-6970Nstlrrs blood reagent stripEugene Kent DO Work Phone: Start: 10-37-4444QFAGV METABOLIC PANEL W/ REFLEX TO MG FOR LOW Yancy Saldaña MD Work Phone: Start: 11-25-0960Yfunhfvcbhizzn time partial plasma/whole bloodEugene Kent DO Work Phone: Start: 11-25-4955Ngfqtwzrytvulw time partial plasma/whole bloodZainulabedin Rudi MD Work Phone: Start: 18-08-1955Zxkpkde blood reagent strip Yanelis Grijalva MD Work Phone: Start: 05-26-2022 End: 55-66-2272Bkqoaoxngygvaz time partial plasma/whole bloodMagui Davis MD Work Phone: Start: 07-68-4515Budsmej catheterizationTajohn Moyer MD Work Phone: Start: 25-23-6038Djooxsw blood reagent strip Yanelis Grijalva MD Work Phone: Start: 06-77-5811BOIQW METABOLIC PANEL W/ REFLEX TO MG FOR LOW KMohammad I Mashaleh DO Work Phone: Start: 05-26-2022 End: 65-76-3957Ocrtnxojyfoftm time partial plasma/whole bloodMaxlamar Bhat MD Work Phone: Start: 46-92-1612Ioapsuo blood reagent strip Yanelis Grijalva MD Work Phone: Start: 39-30-9345Pavqngn blood reagent strip Yanelis Grijalva MD Work Phone: Start: 19-81-4042Egganna blood reagent strip Yanelis Grijalva MD Work Phone: Start: 04-14-6472Oyxz tthrc r-t 2d w/wom-mode compl spec&colr dMohammad I Mashaleh DO Work Phone: Start: 73-89-2906XMFWP METABOLIC PANEL W/ REFLEX TO MG FOR LOW KMohammad I Mashaleh DO Work Phone: Start: 05-25-2022 End: 05-31-7791Stelydmjruqvjh time partial plasma/whole bloodYanelis Grijalva MD Work Phone: Start: 19-44-2382Dyfhane blood reagent strip Yanelis Grijalva MD Work Phone: Start: 05-24-2022 End: 43-19-9139Exgiynxiqftzgj time partial plasma/whole bloodAlessio Bhat MD Work Phone: Start: 02-88-2729Cwfmgkn blood reagent stripMaxlamar Bhat MD Work Phone: Start: 94-14-9469UPMLJ METABOLIC PANEL W/ REFLEX TO MG FOR LOW KMohammad I Benny DO Work Phone: Start: 90-98-2496Srqow panelMohammad I Shalomeh DO Work Phone: Start: 73-96-3227Tevaoznmhhu direct measurement ldl cholesterolMolloydd I Benny DO Work Phone: Start: 58-52-9042Oof routine ecg w/least 12 lds i&r onlyMohammad I Benny DO Work Phone: Start: 70-13-3785Rktxwhn blood reagent stripMosrirammad I Benny DO Work Phone: Start: 58-76-6762Bebmyurccvfxlw time partial plasma/whole bloodMohammad I Shalomeh DO Work Phone: Start: 07-47-2507Ah retroperitoneal real time w/image completeBrian Gavin Grier MD Work Phone: Start: 04-43-3514DWAOQ METABOLIC PANEL W/ REFLEX TO MG FOR LOW KBrian Gavin Grier MD Work Phone: Start: 76-92-5743Swzkiit blood reagent stripMohammad I Benny DO Work Phone: Start: 99-03-4035Ewbxp of troponin quantitative Mohammad I Shalomeh DO Work Phone: Start: 50-94-7741Atumooe blood reagent stripMohammad I Benny DO Work Phone: Start: 21-89-1553Ump routine ecg w/least 12 lds i&r onlyModick Zapata DO Work Phone: Start: 05-23-2022 End: 85-80-2676Frcetuubmj glycosylated k1zXavqcbnpFly Zapata DO Work Phone: Start: 87-80-3290CIXAJNH, IONIC (POC)Fly Zapata DO Work Phone: Start: 86-92-9832CGHXSWQDGY W/GFR POINT OF CARE Fly Zapata DO Work Phone: Start: 48-38-1454DQTTSGGUPKVG PLUSModick Zapata DO Work Phone: Start: 68-00-2044RRCMBT ACID,POINT OF CAREFly Zapata DO Work Phone: Start: 80-91-9840KDVELH BLOOD GAS, POINT OF CARE Fly Zapata DO Work Phone: Start: 31-65-3883Unwctiv total xcpt refractometry urineBrahsan Grier MD Work Phone: Start: 04-97-6866Bnkifxvsgs microscopic onlyBrahsan Grier MD Work Phone: Start: 81-93-3018Mtfmn dip stick/tablet rgnt auto w/o microscopyBrahsan Grier MD Work Phone: Start: 90-70-7641Dmqjqlhuxdzly metabolic panelMohamed Teresa ANN Work Phone: Start: 09-28-2021 End: 39-77-7145Kbndu metabolic panel calcium totalMartin Serrano MD Work Phone: Start: 80-89-7448Cxpry metabolic panel calcium total Solange Mercer MD Work Phone: Start: 85-03-1547Lzdpn count complete auto&auto difrntl wbcBen Cesar PA-C Work Phone: Start: 77-40-0516Phvhs metabolic panel calcium total Solange Mercer MD Work Phone: Start: 55-17-1075Chwiavgkhe examination osseous survey complMoron Moore MD Work Phone: Start: 07-72-2165Vf thorax w/o contrast Florentin Ambriz MD Work Phone: Start: 06-53-3450Vuinz count complete auto&auto difrntl wbcBen Nasra Arsenio PA-C Work Phone: Start: 44-29-0872Wfnrw-fetoprotein serumОлег Ambriz MD Work Phone: Start: 22-97-434614 hydroxy includes fractions if performedBen Nasra Arsenio PA-C Work Phone: Start: 64-79-2846CINXL METABOLIC PANEL W/ REFLEX TO MG FOR LOW KAndrkami García Arsenio SOLIS-C Work Phone: Start: 78-49-8384OZSVF METABOLIC PANEL W/ REFLEX TO MG FOR LOW Bee Hinson MD Work Phone: Start: 22-47-8214JBVKVRXU REJECTIONSolange Mercer MD Work Phone: Start: 89-70-5779Ctclp count complete auto&auto difrntl wbcBrian Gracia MD Work Phone: Start: 85-09-7283ELUBPSDM REJECTIONBrian Gracia MD Work Phone: Start: 89-18-7608ZAGRM METABOLIC PANEL W/ REFLEX TO MG FOR LOW KAndrkami Howardastrid PA-C Work Phone: Start: 41-52-4323Egi head w/o contrst materialBen García Arsenio PA-C Work Phone: Start: 26-13-7389Xydsskqqbwf planar imaging w/wo subtractionTalib Saldaña MD Work Phone: Start: 90-56-2594DPFZK-19, RAPIDBen García Arsenio APARICIOC Work Phone: Start: 63-93-2379Fizdhoxbozd antibody each ig class Ben García Arsenio ALEXIS Work Phone: Start: 09-08-2021 End: 39-35-2470UEVUSOK, BLOOD 1Ataj García Arsenio ALEXIS Work Phone: Start: 39-74-6149Uxvqs of magnesiumBrian Gracia MD Work Phone: Start: 02-67-8847DDZKG METABOLIC PANEL W/ REFLEX TO MG FOR LOW KSrinivas Basil ANN Work Phone: Start: 30-97-4381G-reactive proteinSgaurav Gracia MD Work Phone: Start: 16-91-6931Qochw of magnesiumBen Cesar PA-C Work Phone: Start: 56-57-9407HCMEK METABOLIC PANEL W/ REFLEX TO MG FOR LOW KAnparminder Nasra Cesar PA-C Work Phone: Start: 51-89-6444TUONP METABOLIC PANEL W/ REFLEX TO MG FOR LOW KSrinmilkas Basil ANN Work Phone: Start: 64-95-8678Pkcqs count complete auto&auto difrntl wbcBrian Gracia MD Work Phone: Start: 07-88-6032Svlm count misc body fluids w/differential Cecilio Solitario MD Work Phone: Start: 15-78-8262LXUETIHAGPXbdz Alonso Farley MD Work Phone: Start: 40-34-9211BXDNP METABOLIC PANEL W/ REFLEX TO MG FOR LOW KSrinivas Basil ANN Work Phone: Start: 62-95-1959JQQYSGES BLOOD GAS, POCBrian Gracia MD Work Phone: Start: 09-06-2021 End: 05-92-7150Picj bld gluc mntr dev cleared fda spec home useSgaurav Gracia MD Work Phone: Start: 90-30-9913Cwyvb gases any combination ph pco2 po2 co2 ngi4Riduppvdc L Serafin ANN Work Phone: Start: 51-02-0818GRSCM METABOLIC PANEL W/ REFLEX TO MG FOR LOW KSrinivas Basil ANN Work Phone: Start: 06-03-6900Oyqzc count complete auto&auto difrntl wbcBrian Gracia MD Work Phone: Start: 20-19-3736JSKCGHKQLTL PANEL W/ REFLEX TO MG FOR LOW Jermaine Grier MD Work Phone: Start: 56-14-8527Mlo spinal canal cervical w/o contrast karylArtur Quiñones MD Work Phone: Start: 83-10-3355BYNHWRYN BLOOD GAS, POCBrian Gracia MD Work Phone: Start: 09-04-2021 End: 71-89-2518Uzgy bld gluc mntr dev cleared fda spec home useSgaurav Gracia MD Work Phone: Start: 80-64-2240FEVZU METABOLIC PANEL W/ REFLEX TO MG FOR LOW KSrinivas Basil ANN Work Phone: Start: 32-16-4407Oxjweeoonj exam chest single view Robert Mcghee MD Work Phone: Start: 60-59-6137Aszqsfyg hiv-1&hiv-2 single result Shun Cervantes MD Work Phone: Start: 44-98-3741Lqkxh of lipaseRakan Lozano MD Work Phone: Start: 91-00-9674BRRHS METABOLIC PANEL W/ REFLEX TO MG FOR LOW Yani Lozano MD Work Phone: Start: 97-98-8938HFJPVYDY BLOOD GAS, POCBrian Gracia MD Work Phone: Start: 61-02-1819Xrwe bld gluc mntr dev cleared fda spec home useSgaurav Gracia MD Work Phone: Start: 12-96-0771Faigspxehp exam abdomen 1 viewRakan Lozano MD Work Phone: Start: 44-30-2687Bsdfblg blood reagent stripSgaurav Gracia MD Work Phone: Start: 93-31-8131Apemhjbtkn other sourceMartin Serrano MD Work Phone: Start: 24-73-5522MLWLVJZAECQ, URINEMartin Serrano MD Work Phone: Start: 38-40-2462Pmpwo of parathormoneMartin Serrano MD Work Phone: Start: 45-93-3181Xxhqzmnhxx antigen each component Martin Serrano MD Work Phone: Start: 63-56-4225KLNZTWX LABORATORY CHARGEMartin Serrano MD Work Phone: Start: 09-02-2021 End: 91-71-4875Wnvzy of triglyceridesRakan Lozano MD Work Phone: Start: 16-65-4427HPBDD METABOLIC PANEL W/ REFLEX TO MG FOR LOW Yani Lozano MD Work Phone: Start: 07-26-5110Ufhi screen quantitative vancomycin Rakan Lozano MD Work Phone: Start: 43-16-7042Vgxgrcxuin exam chest single view Gisselle Cortez Sra, MD Work Phone: Start: 17-20-0434RCJJQMYY BLOOD GAS, POCBrian Gracia MD Work Phone: Start: 90-29-2352Vei abdomen w/o contrast material Rakan Lozano MD Work Phone: Start: 09-01-2021 End: 06-51-4100Zsmni of triglyceridesBrian Gracia MD Work Phone: Start: 52-10-1982BSPCG METABOLIC PANEL W/ REFLEX TO MG FOR LOW KAmir Gavin Angulo MD Work Phone: Start: 64-42-3633Fdis screen quantitative vancomycin Issac Angulo MD Work Phone: Start: 33-78-8134KFJNXZWR BLOOD GAS, Jack Gracia MD Work Phone: Start: 08-31-2021 End: 48-45-8714CLJHVIZ, BLOOD Kimi Lozano MD Work Phone: Start: 13-14-3436Zgcafaxsot exam chest single view Rakan Lozano MD Work Phone: Start: 95-57-8779PIHYW METABOLIC PANEL W/ REFLEX TO MG FOR LOW KAmir Gavin Angulo MD Work Phone: Start: 96-05-7145NFIAJMNC BLOOD GAS, Jack Gracia MD Work Phone: Start: 08-31-2021 End: 82-09-3899Khsh bld gluc mntr dev cleared fda spec home useSrinivas Basil ANN Work Phone: Start: 24-50-5092Qjwtz centrifuge enhncd id imfluor stain Arden Lozano MD Work Phone: Start: 08-30-2021 End: 30-65-3925Ysz-scan artl celeste abdl/pel/scrot&/rpr orgn comAalvaro Angulo MD Work Phone: Start: 52-21-7636BCSNZHGZQON PANEL, MOLECULAR, WITH COVID-19Rakan Lozano MD Work Phone: Start: 89-10-2890Jhhshuzevb microscopic onlyRakan Lozano MD Work Phone: Start: 22-01-1120Rmvfs dip stick/tablet rgnt auto w/o microscopyRakan Lozano MD Work Phone: Start: 41-89-4731Acivqra function panelSalvin Cha MD Work Phone: Start: 79-71-9201Htfbbawtmuujm (pct)Rakan Lozano MD Work Phone: Start: 08-30-2021 End: 62-21-1017QYOVPSK, BLOOD 1Jpaolo Lozano MD Work Phone: Start: 22-41-0874Slxejwgwmt exam chest single view Rakan Lozano MD Work Phone: Start: 60-00-6839IORBHWWU BLOOD GAS, POCSrinivas Basil ANN Work Phone: Start: 03-36-8490Ugkk bld gluc mntr dev cleared fda spec home useSrinivas Basil ANN Work Phone: Start: 18-49-5948ZKXNJ METABOLIC PANEL W/ REFLEX TO MG FOR LOW KAmir Gavin Angulo MD Work Phone: Start: 15-93-1997Vpfzyehs totalNini Cha MD Work Phone: Start: 85-51-6084Huiit of reninNini Cha MD Work Phone: Start: 36-55-1827Eeldv of reninIssac Angulo MD Work Phone: Start: 15-68-2887DIEQMVWE REJECTIONIssac Angulo MD Work Phone: Start: 35-84-4824LwvrvdhiyqhkahxiGfrz J Khan MD Work Phone: Start: 11-67-9382Bdvzd of troponin quantitativeIssac Angulo MD Work Phone: Start: 64-80-3999Dbd routine ecg w/least 12 lds i&r onlyIssac Angulo MD Work Phone: Start: 74-66-7691Ivzzr s aureus methicillin resist amp probe tqLuliberty Hernandez MD Work Phone: Start: 06-02-4256Sxejf of troponin quantitativeIssac Angulo MD Work Phone: Start: 83-61-9934KZIPT METABOLIC PANEL W/ REFLEX TO MG FOR LOW KAmir Gavin Angulo MD Work Phone: Start: 71-73-4336IOMCKIUMTKF CARE EVALUATION ONLY Mercedes Verdin MD Work Phone: Start: 64-69-0241Jncm transthorc r-t 2d w/wo m-mode rec f-up/lmtdRacheljean carloskenyon Soliz DO Work Phone: Start: 65-53-6562FGNRSVYI BLOOD GAS, POCWipedronasra Soliz DO Work Phone: Start: 89-73-4896UQTGGW ACID,POINT OF CAREMyke Soliz DO Work Phone: Start: 86-54-1221Vayh tthrc r-t 2d w/wom-mode compl spec&colr dGtee Arreola MD Work Phone: Start: 76-39-3140Avfwjpkeap exam abdomen 1 viewSadie Quintanilla DO Work Phone: Start: 34-38-0096Xuqsnvttpt exam chest single view Sadie Quintanilla DO Work Phone: Start: 08-29-2021 End: 00-83-7411Oqd bact xcpt urine blood/stool aerobic isolWijean carloskenyno Soliz DO Work Phone: Start: 20-60-7971Dsvp count misc body fluids w/differential countWijean carloskenyon Soliz DO Work Phone: Start: 08-29-2021 End: 86-09-7847Lupiatl body fluid other than bloodWijean carloskenyon Soliz DO Work Phone: Start: 08-51-7514XFFWULY, IONIC (POC)Myke Soliz DO Work Phone: Start: 77-62-1962GBZLVHMCVF W/GFR POINT OF CAREMyke Soliz DO Work Phone: Start: 82-36-1367FIUPTAXYSEIL PLUSWijessica Soliz DO Work Phone: Start: 49-37-5195VGRAET ACID,POINT OF CAREWijessica Soliz DO Work Phone: Start: 03-50-9150ICBZYR BLOOD GAS, POINT OF CARE Myke Soliz DO Work Phone: Start: 48-48-7224EDAGR METABOLIC PANEL W/ REFLEX TO MG FOR LOW KGemis Arreola MD Work Phone: Start: 08-29-2021 End: 80-19-5855Vftztwiviog peptideGemis Arreola MD Work Phone: Start: 62-59-0252Dhfbkehpkg exam chest single view Efrem Arreola MD Work Phone: Start: 61-99-7557Ggz routine ecg w/least 12 lds i&r onlyEfrem Arreola MD Work Phone: Start: 00-05-1556KXRC Antigen (LFIA)PHYSICIAN NO FAMILYHistory of coronary artery bypass graftingS/P CABG (coronary artery bypass graft)Fly Zapata DO Work Phone: Plan of Treatment DateCare ActivityDetailAuthorStart: 86-49-9015Wtozb BMI ScreeningAdult BMI ScreeningProInfirmary West Health SystemStart: 64-18-9561Jhfrqpfhhn ScreeningDepression ScreeningProWayne Hospitalca Health SystemStart: 82-71-2736Xkskqcx ScreeningTobacco ScreeningProWayne Hospitalca Health SystemStart: 67-79-0963Ngbxyd Use: Cardiovascular Statin Use: CardiovascularProInfirmary West Health SystemStart: 43-67-7812Lysgcz Use: DiabeticStatin Use: DiabeticProInfirmary West Health SystemStart: 80-00-0564Tyzbop Use: CardiovascularStatin Use: CardiovascularProMedica Memorial Hospitalca Health SystemStart: 10-01-2025 Statin Use: DiabeticStatin Use: DiabeticGuernsey Memorial Hospital SystemStart: 06-30-2025 End: 06-02-1161Onozzyt encounter hyiwqpomp92/27/2026 4:00 PM EDT Office Visit [facility] [address] [place] [address] Sheng Buckner, DIRECTOR PRODUCT-SINGLE WIRE SAW OPERATOR [address] [facility] [address] [place] [address] [facility]: 89-28-1410Dimbb BMI Follow Up PlanAdult BMI Follow Up PlanGuernsey Memorial Hospital SystemStart: 38-59-9063Rvcxv BMI ScreeningAdult BMI ScreeningGuernsey Memorial Hospital SystemStart: 94-93-5437Qgubowx ScreeningTobacco ScreeningGuernsey Memorial Hospital SystemStart: 65-97-0928Csyha BMI Follow Up PlanAdult BMI Follow Up PlanGuernsey Memorial Hospital SystemStart: 02-28-2025 Adult BMI ScreeningAdult BMI ScreeningGuernsey Memorial Hospital SystemStart: 02-28-2025 Depression ScreeningDepression ScreeningGuernsey Memorial Hospital SystemStart: 02-28-2025 Tobacco ScreeningTobacco ScreeningGuernsey Memorial Hospital SystemStart: 23-00-5114Ckvqy BMI Follow Up PlanAdult BMI Follow Up PlanGuernsey Memorial Hospital SystemStart: 14-68-1061Rcusr BMI ScreeningAdult BMI ScreeningGuernsey Memorial Hospital SystemStart: 74-07-8446Lquoxvhefg ScreeningDepression ScreeningGuernsey Memorial Hospital SystemStart: 91-67-1480Pjdqhwn ScreeningTobacco ScreeningGuernsey Memorial Hospital SystemStart: 12-30-2024 End: 81-26-9042Xcnwmiy encounter eiimqidja26/27/2025 2:15 PM EDT Office Visit [facility] [address] [place] [address] Sheng Buckner, DIRECTOR PRODUCT-SINGLE WIRE SAW OPERATOR [address] [facility] [address] [place] [address] [facility]: 43-27-4100Mvvib BMI ScreeningAdult BMI ScreeningGuernsey Memorial Hospital SystemStart: 51-34-1030Bhnkomj ScreeningTobacco ScreeningGuernsey Memorial Hospital SystemStart: 77-18-1726Gvftp BMI Follow Up PlanAdult BMI Follow Up PlanGuernsey Memorial Hospital SystemStart: 11-22-2024 Adult BMI ScreeningAdult BMI ScreeningGuernsey Memorial Hospital SystemStart: 11-22-2024 Depression ScreeningDepression ScreeningGuernsey Memorial Hospital SystemStart: 11-22-2024 Diabetic foot examinationDiabetic Foot ExamBlue Ridge Regional Hospitaltart: 99-92-9880Jvbkeng ScreeningTobacco ScreeningGuernsey Memorial Hospital SystemStart: 49-13-6187Aqqmhetro vaccinationInfluenza VaccineGuernsey Memorial Hospital SystemStart: 62-46-3670Oeico BMI ScreeningAdult BMI ScreeningGuernsey Memorial Hospital SystemStart: 61-70-7446Dqafaqw ScreeningTobacco ScreeningGuernsey Memorial Hospital SystemStart: 65-47-9737Slvxl BMI Follow Up PlanAdult BMI Follow Up [facility]ertart: 00-59-2570Qzczj BMI ScreeningAdult BMI ScreeningGuernsey Memorial Hospital SystemStart: 82-15-6372Gidojyzxcn ScreeningDepression ScreeningBlue Ridge Regional Hospitaltart: 09-12-2024 End: 81-72-9879Qbcznho encounter /10/2025 3:20 PM EDT [facility] [address] [place] [address] Jose Khanna, DIRECTOR PRODUCT-SINGLE WIRE SAW OPERATOR [address] [place] [address] [facility]: 79-43-0678Jclvv BMI Follow Up PlanAdult BMI Follow Up PlanBlue Ridge Regional Hospitaltart: 87-44-6352Vbknw BMI ScreeningAdult BMI ScreeningBlue Ridge Regional Hospitaltart: 17-25-4131Iemcthlulj ScreeningDepression ScreeningProMedica Memorial Hospitalca [facility] SystemStart: 05-01-9722Pddojzm ScreeningTobacco ScreeningProMedica Memorial Hospitalca [facility] SystemStart: 06-03-2024 End: 41-89-3675Vflhhxu encounter vskjhjvio43/31/2025 3:20 PM EDT Office Visit [facility] [address] [place] [address] Jose Khanna, DIRECTOR PRODUCT-SINGLE WIRE SAW OPERATOR [address] [place] [address] [facility] Family MedicineStart: 44-14-5031Gcbkk BMI Follow Up PlanAdult BMI Follow Up PlanGuernsey Memorial Hospital SystemStart: 84-01-2799Vyayk BMI ScreeningAdult BMI ScreeningProMedica Memorial Hospitalca [facility] SystemStart: 19-26-6532Drvemgfpgm ScreeningDepression ScreeningGuernsey Memorial Hospital SystemStart: 13-51-7393Behluzb ScreeningTobacco ScreeningProMedica Memorial Hospitalca [facility] SystemStart: 00-04-6285Geeln BMI ScreeningAdult BMI ScreeningProMedica Memorial Hospitalca [facility] SystemStart: 85-53-2519Ptcbqjkspr ScreeningDepression ScreeningGuernsey Memorial Hospital SystemStart: 56-98-3230Pgnxxvx ScreeningTobacco ScreeningProMedica Memorial Hospitalca [facility] SystemStart: 61-15-3993Ihtvk BMI Follow Up PlanAdult BMI Follow Up PlanGuernsey Memorial Hospital SystemStart: 04-19-2024 Adult BMI ScreeningAdult BMI ScreeningProMedica Memorial Hospitalca [facility] SystemStart: 04-19-2024 Depression ScreeningDepression ScreeningProMedica Memorial Hospitalca [facility] SystemStart: 04-19-2024 Tobacco ScreeningTobacco ScreeningProMedica Memorial Hospitalca [facility] SystemStart: 51-38-2567Bijcu BMI ScreeningAdult BMI ScreeningProMedica Memorial Hospitalca [facility] SystemStart: 03-28-2024 Depression ScreeningDepression ScreeningProMedica Memorial Hospitalca [facility] SystemStart: 03-28-2024 Tobacco ScreeningTobacco ScreeningProMedica Memorial Hospitalca [facility] SystemStart: 79-52-2117Qfsej BMI Follow Up PlanAdult BMI Follow Up PlanProMedica Memorial Hospitalca [facility] SystemStart: 29-32-0049Umiyh BMI ScreeningAdult BMI ScreeningGuernsey Memorial Hospital SystemStart: 18-91-2427Wpnnytdglz ScreeningDepression ScreeningGuernsey Memorial Hospital SystemStart: 85-38-7710Nyexjvd ScreeningTobacco ScreeningBlue Ridge Regional Hospitaltart: 02-29-2024 End: 38-57-2741Reyusau encounter /26/2024 3:20 PM EST [facility] [address] [place] [address] Jose Khanna, DIRECTOR PRODUCT-SINGLE WIRE SAW OPERATOR [address] [place] [address] [facility] MedicineStart: 02-13-2024 End: 04-60-1371Ujofyjdou bvkiixm8202/13/2024 10:30 AM EST Support Visit [facility] [address] [place] [address] [facility] EducationStart: 62-25-8626Gelbi BMI Follow Up PlanAdult BMI Follow Up [facility] Centertart: 11-23-2023 End: 81-05-6756Garmfqh encounter mukhesqbj16/19/2024 3:20 PM EDT [facility] [address] [place] [address] Jose Khanna, DIRECTOR PRODUCT-SINGLE WIRE SAW OPERATOR [address] [place] [address] [facility] MedicineStart: 90-34-7804Uursljunn vaccinationInfluenza VaccineGuernsey Memorial Hospital SystemStart: 10-19-2023 End: 42-48-6079Fykaeye encounter gqzcvrpyr78/15/2024 10:20 AM EDT Office Visit [facility] [address] [place] [address] Jose Khanna, DIRECTOR PRODUCT-SINGLE WIRE SAW OPERATOR [address] [place] [address] [facility] MedicineStart: 10-18-2023 End: 32-61-3373Byprvdl encounter /14/2024 10:20 AM EDT Office Visit [facility] [address] [place] [address] Jose Khanna, DIRECTOR PRODUCT-SINGLE WIRE SAW OPERATOR [address] [place] [address] [facility]: 10-04-2023 End: 51-11-2487Ecluljkb Rhbnznr2610/04/2023 3:00 PM EDT [facility] Medicine [address] [place] [address] EbjBsynlo [facility] Start: 87-81-6099Qefgjaxm foot examinationDiabetic Foot ExamBlue Ridge Regional Hospitaltart: 57-48-6341TNZ test (Diabetes, CKD 3-4, OR last GFR 15-59)GFR test (Diabetes, CKD 3-4, OR last GFR 15-59)[facility]: 08-10-2023 Urine screening [facility]: 07-18-2023 End: 46-90-8007Znlcrml encounter abetdvrnk61/14/2024 10:20 AM EDT Office Visit [facility] [address] [place] [address] Jose Khanna, DIRECTOR PRODUCT-SINGLE WIRE SAW OPERATOR [address] [place] [address] [facility] MedicineStart: 53-21-5739YPF test (Diabetes, CKD 3-4, OR last GFR 15-59)GFR test (Diabetes, CKD 3-4, OR last GFR 15-59)[facility] AVONDALEEvino [facility] Centerart: 80-94-8327Glsfc screening for protein Diabetic Alb to Cr ratio (uACR) testBON CLEARSKY REHABILITATION [facility]OS[facility] OF AVONDALEEvino [facility] Centerart: 2023 End: 32-16-3272Myprjwmz Iqikdgi7306/28/2023 1:30 PM EDT Clinical Support [facility] [address] [place] [address] CydVfktlg [facility]icians Internal [facility] Start: 18-50-4802XIB test (Diabetes, CKD 3-4, OR last GFR 15-59)GFR test (Diabetes, CKD 3-4, OR last GFR 15-59)[facility]OSPITALEvino [facility] Centerart: 06-07-2023 [facility]ITALEv[facility] Centerart: 06-07-2023 End: 01-09-0413Bpiektv encounter meoyvvvvr45/03/2024 9:45 AM EDT [facility] [address] [place] [address] Jose Khanna, DIRECTOR PRODUCT-[facility] [address] [place] [address] [facility] MedicineStart: 73-79-7242Uldxt panelBON Wilson [facility] Hospitalart: 35-06-9112Ffzch screening for proteinBON [facility] Hospitalart: 05-18-2023 End: 01-80-7070Rknaryyo Ghugury4205/18/2023 10:00 AM EDT Clinical Support [facility] [address] [address] DbbYexpea Physicians [facility]art: 05-11-2023 End: 76-69-9468Lqahgec encounter wzxcosqlb04/07/2024 1:00 PM EST Office Visit [facility] - [facility] [address] [place] [address] Jose Khanna, DIRECTOR PRODUCT-SINGLE WIRE SAW OPERATOR [address] [place] [address] [facility] - [facility] MedicineStart: 04-19-2023 End: 74-86-0230Mnxpmqa encounter gpxccqazc81/14/2024 9:00 AM EST Office Visit [facility] - [facility] Medicine [address] [place] [address] Jose Khanna, DIRECTOR PRODUCT-SINGLE WIRE SAW OPERATOR [address] [place] [address] [facility] - [facility] MedicineStart: 11-30-2022 End: 07-46-2772Nbjwpum encounter hxxejgxyv37/27/2023 Office Visit Nephrology Tonie Luna, DIRECTOR PRODUCT - SINGLE WIRE SAW OPERATOR [address] [place] [address] [facility]: 70-32-1398Rwsrghori vaccinationInfluenza VaccineGuernsey Memorial Hospital SystemStart: 06-71-6737Eiykludxe vaccinationFlu vaccine (Season Ended)BON [facility]: 04-55-2482RQE [facility]: 10-04-2022 End: 06-78-9800Quxkdcf encounter qdaqxknwa23/01/2023 Office Visit Nephrology Martin Serrano MD [address] [place] [place] [id number] [facility]: 09-22-2022 End: 96-41-7221Bvvuorf encounter tziirghjo45/20/2023 Appointment [facility] Cardiac RehabStart: 09-21-2022 End: 40-63-9244Bzfadau encounter wjybnzqpy09/19/2023 Appointment Cardiac RehabilitationNYHZ Cardiac RehabStart: 09-19-2022 End: 04-78-6935Hizgvsq encounter /17/2023 Appointment Card[facility] RehabilitationNY[facility] Cardiac RehabStart: 09-15-2022 End: 70-01-3712Jfcossp encounter /13/2023 Appointment Card[facility] RehabilitationNY[facility] Cardiac RehabStart: 09-14-2022 End: 84-26-6616Pbrluin encounter snwceuyop14/12/2023 Appointment [facility] RehabilitationNY[facility] Cardiac RehabStart: 09-12-2022 End: 91-66-6135Ppemmkf encounter zobyakdqn92/10/2023 Appointment [facility]NY[facility] Cardiac RehabStart: 09-08-2022 End: 89-51-0317Bkjdpqd encounter qhpopctfa80/06/2023 Appointment [facility] RehabilitationNY[facility] Cardiac RehabStart: 09-07-2022 End: 56-53-8330Fkvwdqq encounter nhiagcehi18/05/2023 Appointment Card[facility] RehabilitationNY[facility] Cardiac RehabStart: 09-05-2022 End: 35-58-7841Vbmfhbi encounter yziukkqwo92/03/2023 Appointment [facility]NY[facility] Cardiac RehabStart: 09-01-2022 End: 50-23-9199Cctaejz encounter ldypfgbvm59/29/2023 Appointment Card[facility] RehabilitationNY[facility] Cardiac RehabStart: 08-31-2022 End: 69-83-3571Bsviiou encounter kbesvgahz16/28/2023 Appointment Cardiac RehabilitationNY[facility] Cardiac RehabStart: 64-92-0902Kmhfqocirl A1c measurementBON [facility]art: 08-29-2022 End: 09-40-5048Qqvyqhg encounter baldlktoa68/26/2023 Appointment Cardiac RehabilitationNY[facility] Cardiac RehabStart: 08-25-2022 End: 45-68-2442Pxxhpzz encounter ldsbjybdz92/22/2023 Appointment Cardiac RehabilitationNY[facility] Cardiac RehabStart: 08-24-2022 End: 97-37-3442Xekyolt encounter pwtjgeied55/21/2023 Appointment Cardiac RehabilitationNY[facility] Cardiac RehabStart: 08-22-2022 End: 55-74-9689Siupplv encounter zkbevybxp34/19/2023 Appointment [facility] Cardiac RehabStart: 08-18-2022 End: 50-75-6355Kinpheo encounter procedureMTHZ Cardiac RehabStart: 08-17-2022 End: 82-20-8820Etnngup encounter wcevmvlan25/14/2023 Appointment [facility] Cardiac RehabStart: 08-15-2022 End: 94-68-2901Vnzlbdm encounter /12/2023 Appointment [facility] Cardiac RehabStart: 08-11-2022 End: 12-99-5646Dkxkydc encounter pherzuizk88/08/2023 Appointment [facility] Cardiac RehabStart: 08-10-2022 End: 29-93-3334Lpfvtxk encounter ughleqxdc74/07/2023 Appointment [facility] Cardiac RehabStart: 08-09-2022 End: 85-65-5258Ezuusqp encounter jvqcwumqf64/06/2023 Office Visit Nephrology Martin Serrano MD [address] [facility] [place] [facility]: 08-08-2022 End: 29-68-5893Tqyrbup encounter hlvdtotcg89/05/2023 Appointment [facility] Cardiac RehabStart: 08-04-2022 End: 15-07-0829Dfzhrlr encounter lycmiyaij34/01/2023 Appointment [facility] Cardiac RehabStart: 08-03-2022 End: 31-07-8757Jummgli encounter riakspmaf31/31/2023 Appointment [facility] Cardiac RehabStart: 08-01-2022 End: 49-28-7220Nxbaeiw encounter rsieydnts33/29/2023 Appointment [facility] Cardiac RehabStart: 07-28-2022 End: 22-76-2607Tfzgzzm encounter qvztiemwe60/25/2023 Appointment [facility] Cardiac RehabStart: 07-27-2022 End: 17-86-2572Wyntvmq encounter gktuxofhg77/24/2023 Appointment [facility] Cardiac RehabStart: 07-25-2022 End: 13-84-1625Vusmykn encounter jrmncuciv63/22/2023 Appointment [facility] Cardiac RehabStart: 07-21-2022 End: 67-30-9289Lrvdmyf encounter kkqiyfmzq02/18/2023 Appointment [facility] Cardiac RehabStart: 07-20-2022 End: 55-78-6968Fqhijsk encounter vygorejim82/17/2023 Appointment [facility] Cardiac RehabStart: 07-18-2022 End: 62-06-5584Ujwbvke encounter oxpjcauxr45/15/2023 Appointment [facility]MAN[facility] Cardiac RehabStart: 07-14-2022 End: 35-55-5651Fcampla encounter pcgaqlqju56/11/2023 Appointment [facility]MAN[facility] Cardiac RehabStart: 07-13-2022 End: 82-98-2277Tssvxdw encounter bbcypinrs69/10/2023 Appointment [facility] Cardiac RehabStart: 07-12-2022 End: 81-45-8964Teuhmpw encounter /09/2023 Office Visit Cardiology Alecia England MD [address] [address] [place] [employer] Operator - [facility]: 07-11-2022 End: 51-15-1229Hzzdehq encounter /08/2023 Appointment Card[facility]MAN[facility] Cardiac RehabStart: 07-07-2022 End: 45-27-0794Lqlcbqx encounter ypzstlbws93/04/2023 Appointment [facility]MAN[facility] Cardiac RehabStart: 07-06-2022 End: 87-39-4439Idroqff encounter procedureMANHATTAN PSYCHIATRIC [facility] Cardiac RehabStart: 12-07-2021 End: 40-00-3618Erbtknh encounter avglzmsnh31/04/2022 Office Visit Nephrology Martin Serrano MD [address] [place], [id number] [facility]: 11-73-7111Jwzehnbgh vaccinationFlu vaccine (#1)[facility]ON [facility]art: 04-61-8273SKJ [facility]: 10-19-2021 End: 43-93-5840Uouwdpl encounter ffouaavms93/16/2022 Office Visit Infectious Diseases Ashish Henao MD [address] [address] [facility] Infectious DiseaseStart: 10-06-2021 End: 83-32-3567Gbvsyia encounter hhupdoqlg75/03/2022 Office [place] [address] [place], [place] [phone] (Work) [facility] CENTERStart: 09-28-2021 End: 09-38-0956Qkcukjh encounter procedureNephrology Assoc [facility] Start: 09-27-2021 End: 48-79-5802Kzzikzp encounter /25/2022 Appointment Infusion TherapyM[facility] ([facility])Start: 09-26-2021 End: 04-08-9464Bizxwdx encounter tososazis65/24/2022 Appointment Infusion TherapyM[facility] ([facility])Start: 09-25-2021 End: 76-60-1729Aisudlx encounter hjjirrgax33/23/2022 Appointment Infusion TherapyM[facility] ([facility])Start: 09-24-2021 End: 03-29-1723Pgtkpmi encounter uardgocuz43/22/2022 Appointment Infusion TherapyM[facility] ([facility])Start: 09-23-2021 End: 66-48-6556Mkeupvo encounter ybbjlugph05/21/2022 Appointment Infusion TherapyM[facility] ([facility])Start: 09-22-2021 End: 63-90-7923Nmlxetx encounter hwtjjcmyx40/20/2022 Appointment Infusion TherapyM[facility] ([facility])Start: 09-21-2021 End: 40-94-3733Uyajmfu encounter tchrxqzax22/19/2022 Appointment Infusion TherapyM[facility]Z [facility] (MOB)Start: 09-20-2021 End: 43-47-9996Deeimrh encounter jfqrwmocj20/18/2022 Appointment Infusion TherapyMTHZ [facility] (MOB)Start: 09-19-2021 End: 87-75-4061Ojmpiti encounter fjjdsebgq20/17/2022 Appointment Infusion TherapyMT Specialty Clinic (MOB)Start: 09-19-2021 End: 16-83-7319Mvunp metabolic 2000 panel - Serum or PlasmaBON [facility] [employer] Work Phone: start: 09-18-2021 End: 92-15-6831Tzzfmlj encounter syapipbuu45/16/2022 Appointment Infusion TherapyMANHATTAN [facility] Specialty Clinic (MOB)Start: 09-17-2021 End: 49-41-6438Uffntmv encounter rxqaygeya52/15/2022 Appointment Infusion TherapyMT Specialty Clinic (MOB)Start: 09-16-2021 End: 68-29-0553Lbblfju encounter /14/2022 Appointment Infusion TherapyMANHATT[facility] Specialty Clinic (MOB)Start: 20-68-3700Pibuliyvhf hospital visit by ccamaekwj22/13/2022 Hospital Encounter Infusion TherapyMANHATTAN [facility] Specialty Clinic (MOB)Start: 09-14-2021 End: 45-11-0266Yqavdtd encounter hrbcbeiqv34/12/2022 Appointment OncologySTVZ 3C Med SurgStart: 09-13-2021 End: 53-93-2659etnkhbnvznFZUP 3C Med SurgStart: 71-10-3329Mznmzwlb screen Diabetes screenCarilion Franklin Memorial Hospitalart: 40-55-4643SZORIVERSIDE BEHAVIORAL HEALTH [facility] Start: 89-01-1532FVdJ,Tdap and Td Vaccines (1 - Tdap)DTaP,Tdap and Td Vaccines (1 - Tdap)[facility] SystemStart: 57-89-0644RYgP/Tdap/Td vaccine (1 - Tdap)DTaP/Tdap/Td vaccine (1 - Tdap)[facility] Hospitalart: 06-29-2003 Hepatitis B vaccine (1 of 3 - Risk 3-dose series)Hepatitis B vaccine (1 of 3 - Risk 3-dose series)[facility] CENTERStart: 73-69-3232VDW [facility]: 10-10-1273Iysmfzzq screeningCentra Health: 73-73-1474Waudwadlak ScreenDepression ScreenBON [facility] Hospitalart: 20-06-7520YLM [facility] Hospitalart: 04-64-8509Bmmooits foot examinationBON [facility]: 83-91-4163Vqrksgkavrwd 0-64 years Vaccine (1 - PCV) Pneumococcal 0-64 years Vaccine (1 - PCV)[facility]OSPITALEvino [facility]ALTHStart: 11-56-2354FGP [facility]IL[facility]OSPITAL [facility] AVONDALESpinX Technologies [facility] CENTERCV-Sight [facility]ALTHStart: 76-56-0639HPPTO-19 Vaccine (1)COVID-19 Vaccine (1)[facility]PITALEvino [facility]ALTHStart: 42-78-6867ISV [facility]OS[facility] AVONDALEEvino [facility] Start: 44-33-2964Quzlbuxhx vaccine (1 of 2 - 2-dose childhood series)Varicella vaccine (1 of 2 - 2-dose childhood series)[facility] HOSPITALSpinX Technologies [facility] CENTERCV-Sight [facility]ALTHStart: 43-87-2215TTP [facility] AVONDALEEvino [facility] Centerart: 04-46-1186OKXKB-19 Vaccine (#1)COVID-19 Vaccine (#1)[facility] HOSPITALSpinX Technologies [facility] CENTERCV-Sight [facility] Centerart: 40-13-1132NWD [facility] AVONDALEFrensenius [facility] Start: 44-31-1991Afhdhefb screeningDiabetic Ophthalmology ExamProSelect Medical [facility] Rehabilitation Hospital, Avontart: 48-36-6347Lwwvvmt CounselingTobacco CounselingProWayne HospitalABG drawVALLEYWISE HEALTH MEDICAL CENTER [employer] Phone: acapellaBON [employer] Phone: End: 17-17-7713Kwxea metabolic 2000 panel - Serum or PlasmaVALLEYWISE HEALTH MEDICAL CENTER [employer] Phone: End: 04-23-6405Enhn-2 Glycoprotein AntibodiesVALLEYWISE HEALTH MEDICAL CENTER [employer] Phone: [phone]-3 Glycoprotein AntibodiesVALLEYWISE HEALTH MEDICAL CENTER [employer] Phone: End: 04-53-5115JBYZW BANK REQUESTBON [employer] Phone: End: 60-33-5625Lghqb Bank SpecimenBON [employer] Phone: End: 76-02-1154Ccapclm, IonizedBON [employer] Phone: cARDIAC PHASE IICARDIAC PHASE II Card Rehab Ordered: 07/04/2022 D and K interprisesOzarks Community Hospitalment on above:Ordered: 07/04/2022ARDIAC PHASE IICARDIAC PHASE II Card Rehab Ordered: 07/07/2022ON D and K interprises Comment on above:Ordered: 07/07/2022ARDIAC PHASE IICARDIAC PHASE II Card Rehab Ordered: 07/18/2022ON D and K interprisesComment on above:Ordered: 07/18/2022 End: 29-14-0809AVN panel - Blood by Automated countVALLEYWISE HEALTH MEDICAL CENTER [employer] Phone: cBC W Auto Differential panel - BloodVALLEYWISE HEALTH MEDICAL CENTER [employer] Phone: End: 32-42-0910Rqifafxzn trachomatis DNA [Presence] in Unspecified specimen by VIK with probe detectionChlamydia/Gonorrhoeae by PCR, Urine Microbiology Routine Screen for STD (sexually transmitted disease) 1 Occurrences starting 12/30/2024 until 12/30/2025[facility] Work Phone: Comment on above:1 Occurrences starting 12/30/2024 until 12/30/2025hlamydia trachomatis DNA [Presence] in Unspecified specimen by VIK with probe detectionChlamydia/Gonorrhoeae by PCR, Urine Microbiology Routine Screen for STD (sexually transmitted disease) 12/30/2024 2:56 PM [facility] HospitalContinuous pulse oximetrySHAW HOSPITALSurveypal Phone: continuous pulse oximetryVALLEYWISE HEALTH MEDICAL CENTER [employer] Phone: culture, Blood 1BON [facility]HABILIT[facility] HOSPITAL OF AVONDALESurveypal Phone: eZPAPBFRYE REGIONAL MEDICAL CENTER ALEXANDER CAMPUSSurveypal Phone: Glucose [Mass/volume] in Serum or PlasmaVALLEYWISE HEALTH MEDICAL CENTER [employer] Phone: End: 14-91-7179Tuvrqwe [Mass/volume] in Serum or PlasmaVALLEYWISE HEALTH MEDICAL CENTER [employer] Phone: End: 68-12-1754Ytjft panelLipid panel Lab Routine Type 2 diabetes mellitus with microalbuminuria, without long-term current use of insulin ([facility]) 1 Occurrences starting 11/23/2023 until 11/22/2024[facility] Work Phone: Comment on above:1 Occurrences starting 11/23/2023 until 11/22/2024 End: 49-67-1003Gkncsltzq [Mass/volume] in Serum or PlasmaBON [employer] Phone: End: 49-29-2924Dkkvjfqdesun / Creatinine Urine RatioMicroalbumin / Creatinine Urine Ratio Lab Routine Acute kidney injury superimposed on CKD (HCC) 1 Oc currences starting 08/09/2022 until 08/09/2022ON D and K interprises Work Phone: comment on above:1 Occurrences starting 08/09/2022 until 08/09/2022 End: 43-75-5887Vtlxxiyiqgkf, UrBON [employer] Phone: comment on above:Once for 1 Occurrences starting 08/09/2022 until 08/09/2022Nasal Cannula OxygenBON D and K interprises Work Phone: Oxygen therapy [Minimum Data Set]BON [employer] Work Phone: Oxygen therapy [Minimum Data Set]BON [employer] Work Phone: Patient referralCleveland Clinic [facility] Work Phone: End: 16-94-6564MIN Blood GasBON [employer] K inter[employer] Work Phone: End: 88-23-0835IZIGIYB RBC (CROSSMATCH), 2 UnitsBON [employer] and K interprises Work Phone: End: 45-11-4611ANUOBJKC SPECIMENBON D [employer] K interprises Work Phone: End: 89-44-4025GGR, Intact with Ionized CalciumBON [employer] Phone: comment on above:1 Occurrences starting 08/09/2022 until 08/09/2022 End: 04-90-1664QDL-Related PeptideBON D and K interprises Work Phone: [phone]-WmC-2 (COVID-19) N gene [Presence] in Respiratory specimen by VIK with probe detectionCleveland Clinic [facility] Work Phone: End: 04-26-4417Nljyvvjxeo panelRIVERSIDE BEHAVIORAL HEALTH CENTER Work Phone: End: 70-21-9401Lkqueftyoqd by PCRTrichomonas by PCR Microbiology Routine Screen for STD (sexually transmitted disease) 1 Occurrencesstarting 12/30/2024 until 12/30/2025ProGlenbeigh Hospital SystemComment on above:1 Occurrences starting 12/30/2024 until 12/30/2025Trichomonas by PCRTrichomonas by PCR Microbiology Routine Screen for STD (sexually transmitted disease) 12/30/2024 2:56 PM EDT [facility] End: 80-87-4665Hdywpfd D 25 [facility] Work Phone: comment on above:Once for 1 Occurrences starting 07/07/2022 until 07/07/2022 End: 42-50-9737Cltceuh D 25 HydroxyRIVERSIDE BEHAVIORAL HEALTH CENTER Work Phone: comment on above:1 Occurrences starting 08/09/2022 until 08/09/2022XR BONE SURVEY COMPLETERIVERSIDE BEHAVIORAL HEALTH CENTER Work Phone: xr CHEST PORTABLERIVERSIDE BEHAVIORAL HEALTH CENTER Work Phone: xr CHEST [facility] Work Phone: Immunizations Immunization DateImmunizationNotesCare MzqacbezMtbjyzfq33-74-5553lfjhyfkfa virus vaccine, unspecified formulationValerie Thiago DIRECTOR PRODUCT-[facility] Work Phone: [facility] Payers DatePayer CategoryPayerPolicy [id number] 2022Medicaid [id number] 2022Medicaid000000000000 [id number] 2.16840.1.947080.3.57[id number] 2.16840.1.808714.3.57[id number] 2.16840.1.238457.3.57[id number] 2.16840.1.740229.3.57[id number] 2.16840.1.031382.3.57[id number] 2.840.1.407671.3.57[id number] 2.16840.1.058174.3.57[id number] 2.16840.1.991586.3.57[id number] 2.16840.1.619794.3.57[id number] 2.16840.1.759691.3.57[id number] 2.16840.1.132481.3.57[id number] 2.16840.1.823162.3.57[id number] 2.16840.1.261152.3.579.[id number] 2.16840.1.475020.3.57[id number] 2.16.840.1.647877.3.57[id number] 2.16.840.1.817097.3.579.[id number] 2.0.1.532827.3.579.[id number] 2.16.840.1.477236.3.579.2.[id number] 2.0.1.520725.3.57[id number] 2.0.1.379293.3.579.2.1286 [id number] 2.0.1.369019.3.579.2.531 Social History DateTypeDetailFacilityStart: 08-28-2021 End: 66-19-7021Ruvttvy smoking status NHISSmoker (finding)[facility]: 24-30-3951Feq [facility]: 01-31-2016 End: 81-25-9794Pkhrqzd smoking status NHISSmokes tobacco dailySHAW HOSPITALEvino [facility]ALTHStart: 01-31-2016 End: 98-02-9314Ljwrimtelk smoked current (pack per day) - ReportedProMedica Memorial HospitalFermentalg [facility] SystemStart: 08-29-2021 End: 22-19-7088Rdzhisq intakeCurrent drinker of alcohol (finding)[employer] Phone: start: 13-54-2458Jftqiva SDOH Alcohol Commentsocially [facility] [employer] Phone: start: 33-99-4350Ljd Assigned At [facility] [employer] Phone: start: 08-19-2021 End: 20-41-6480Abdmcxfm to SARS-CoV-2 (event)Not sureVizsafe End: 82-69-4715Lvacwga of tobacco useCigarette SmokerMediaWheel Phone: start: 10-06-2021 End: 72-34-0403Orcvzrz use and exposureFormer smokeless tobacco [facility] Phone: start: 10-19-2021 End: 44-19-9548Zlhesfp smoking status NHISEx-smokerVizsafe End: 84-68-9801Nbcjafi of tobacco useSnuff [employer] Phone: start: 11-23-2023 End: 13-67-6208Tgwkynvqk beverage intakeEx-drinker (finding)[facility] [employer] SystemStart: 01-26-2022 End: 67-67-1224Gneeqf connection and isolation panelProGlenbeigh Hospital SystemDo you belong to any clubs or organizations such as mormon groups, unions, fraternal or athletic groups, or school groups?NoPSouthwest General Health Center SystemAre you now , , , , never or living with a partner?Living with partnerGuernsey Memorial Hospital SystemHow often to you have a drink containing alcohol?Monthly or lessProGlenbeigh Hospital SystemHow many standard drinks containing alcohol do you have on a typical day?1 or 2PSouthwest General Health Center SystemHow often do you have 6 or more drinks on 1 occasion?NeverProInfirmary West Health SystemHow hard is it for you to pay for the very basics like food, housing, medical care, and heatingNot hard at allProGlenbeigh Hospital SystemDo you feel stress - tense, restless, nervous, or anxious, or unable to sleep at night because yourmind is troubled all the time - these days [OSQ]To some extent [facility] [employer] SystemStart: 77-47-8107Knhvbzare97OozEvgocv Health SystemStart: 50-90-5942Nhyartl CommentOccasionallyGuernsey Memorial Hospital SystemStart: 10-09-2014 Lluvia (finding)[facility] SystemStart: 09-12-2022 End: 42-91-5213Xtqsqmc use and exposureUser of smokeless tobaccoChildren's Hospital of ColumbusHow hard is it for you to pay for the very basics like food, housing, medical care, and heatingNot very hardChildren's Hospital of [facility] Medical Equipment Procedure CodeEquipment CodeEquipment Original TextEquipment IdentifierDates [id number]: [id number]_kcfHuljh: [id number]: 25-36-4079Slqrgxn blood sugars twice [id number]: Lancet by miscellaneous route in the morning.[id number]: 07-38-0556Wwgacs 1 Pen Needle under the skin in the morning and 1 Pen Needle before bedtime.[id number]: 11-30-2023 End: Pen Needle by miscellaneous route in the morning.[id number] Start: 05-05-2023 End: 60-31-4749gjx 1 PEN NEEDLE to inject MEDICATION subcutaneously as directed [id number]: 10-02-2023 End: 53-11-6967Ooflzk 1 Pen Needle under the skin nightly.[id number]: 11-27-2023 End: 62-42-8793WJS DIRECTED SUBCUTANEOUSLY (UNDER THE SKIN) [id number] Start: 11-27-2023 End: 23-35-7759Pqjaxtqx Drug Eluting [id number]: 07-25-2022 Clinical Notes 09-12-2021 to 12-30-2024 Note Date & LdwfFvxvRyzptsvb00-34-6544 History of Present illness Narrative* Sheng Buckner [...] Moderate episode of recurrent major depressive disorder ([facility]) -depression well controlled. -PHQ9 screen negative. - [...] stage 3 chronic kidney disease and hypertension ([facility]) -reviewed previous A1c from endocrinology in November [...] index (BMI)of 40.0 to 44.9 in adult ([facility]) Body mass index is 43.87 kg/m . [...] each, Rfl: 0 blood-glucose meter,continuous (DEXCOM G7 STUDENT NURSE) misc, 1 Device by miscellaneous route in [...] months (around 06/30/2025) for htn. SSA Liz [facility] Office: [phone] This note is dictated with the use of M*Modal. Please note that this dictation was completed with computer voice recognition software. Quite often unanticipated grammatical, syntax, homophones, and other interpretive errors are inadvertently transcribed by the computer software. Please disregard these errors. Please excuse any errors that have escaped final proofreading. VANESSA Urrutia 12/30/24 1452 documented in this encounterChildren's Hospital of Columbus09-11-2025 NoteREASON FOR VISIT: Elias Walker is a [...] Diabetes education: [YES] Seen by a certified master safe technician (CDE) within 12 months : February 2024 Meal plan: [YES] Seen by a substation operator helper generation within 12 months [] Consistent carbohydrate diet [...] [] [] Depression [] [] Patient seeing stitching machine operator/ kitchen aide regularly [x] [] Last exam date: 2023 Last exam results: Patient seeing dentist regularly [] [x] Patient seeing cnc set up operator regularly [] [x] Last exam date: Last [...] sensation [] [] LABS: Recent Data from [facility] Related to POCT Hemoglobin A1c Component 06/10/24 [...] -- -- Total bilirub (more content not included)...[facility] 10-02-2024 Telephone encounter Note* Telephone Encounter - Laney Snell - 10/02/2024 1:30 PM EDT P/c spoke with pt relayed message that Dr. Conrad did not accept him as new pt. [facility] [id number] Miscellaneous Notes* Telephone Encounter - Laney Snell - 10/02/2024 1:30 PM EDT P/c spoke with pt relayed message that Dr. Conrad did not accept him as new pt. documented in this encounterResearch Medical Center-Brookside [id number] Miscellaneous Notes* Telephone Encounter - Princess Grier CMA - 08/09/2024 11:42 AM EDT [facility] called and said pt's insurance will only cover the Imodium capsules, so they were wondering if you could change RX to capsules. Thank you. documented in this encounterChildren[facility]06-06-2025 Telephone encounter Note* Telephone Encounter - Princess Grier CMA - 08/09/2024 11:42 AM EDT [facility] called and said pt's insurance will only cover the Imodium capsules, so they were wondering if you could change RX to capsules. Thank you. [facility]06-05-2025 Miscellaneous Notes* Telephone Encounter - Princess Grier CMA - 08/08/2024 4:52 PM EDT Pt called in requesting a script for Imodium. Thank you. * Telephone Encounter - VANESSA Taylor - 08/08/2024 4:52 PM EDT Done documented in this encounterChildren's Hospital of Columbus06-05-2025 Telephone encounter Note* Telephone Encounter - Princess Grier CMA - 08/08/2024 4:52 PM EDT Pt called in requesting a script for Imodium. Thank you. [facility]06-05-2025 Telephone encounter Note* Telephone Encounter - VANESSA Taylor - 08/08/2024 4:52 PM EDT Done [facility]05-06-2025 Miscellaneous Notes* Telephone Encounter - Marzena Vega CMA - 07/09/2024 4:48 PM EDT Pt called stated he took his last dose of trulicity he stated he thinks you were going to up the dose ? If so can you can send in a refill? documented in this encounterChildren's Hospital of [facility]05-06-2025 Telephone encounter Note* Telephone Encounter - Marzena Vega CMA - 07/09/2024 4:48 PM EDT Pt called stated he took his last dose of trulicity he stated he thinks you were going to up the dose ? If so can you can send in a refill? [facility]04-07-2025 History of Present illness Narrative* VANESSA Taylor - 06/10/2024 2:40 PM EDT Images from the original note were not included. 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 This has been occurring for over [...] microalbuminuria, without long-term current use of insulin ([facility]) Anxiety and depression - FLUoxetine (PROzac) 20 mg capsule; Take 1 capsule (20 mg total) by mouth in the morning. Type 2 diabetes mellitus with stage 3 chronic kidney disease and hypertension ([facility]) - dapagliflozin propanediol (FARXIGA) 10 mg tablet; take 1 tablet by mouth every morning Uncontrolled type 2 diabetes mellitus with hyperglycemia ([facility]) - POCT Hemoglobin A1c - dulaglutide (TRULICITY) [...] VANESSA Taylor 06/10/24 1531 documented in this encounterChildren's Hospital of [facility]02-16-2025 Miscellaneous Notes* Telephone Encounter - Alesia Edmonds [...] an updated order for Lantus [facility] Reason for Disposition [1] Prescription refill request [...] refill for essential medication documented in this encounterChildren's Hospital of Columbus02-16-2025 Telephone encounter Note* Telephone Encounter - Alesia Edmonds RN - 04/21/2024 2:12 PM EST ----- Message from Joie sent at 04/21/2024 1:49 PM EST ----- Contract: Ronnie Roe is out of his insulin and needs a refill [facility]02-16-2025 Telephone encounter Note* Telephone Encounter - Alesia Edmonds RN - 04/21/2024 2:12 PM EST Contract: [id number] Ran out of insulin due to dosage changed-Lantus , has been out a few days Pharmacy will not refill medication because they need an updated order for Lantus [facility] Reason for Disposition [1] Prescription refill request for ESSENTIAL medicine (i.e., likelihood of harm to patient if not taken) AND [2] triager unable to refill per department policy Protocols used: Medication Refill and Renewal Call-A-AH [facility] [employer] [id number] Telephone encounter Note* Telephone Encounter - Alesia Edmonds RN - 04/21/2024 2:12 PM EST OC provider updated on change needed for Lantus prescription -per pharmacy still reflecting the oldorder of 35 units, not 70 units, informed will call pharmacy [facility]02-16-2025 Telephone encounter Note* Telephone Encounter - Alesia Edmonds RN - 04/21/2024 2:12 PM EST Informed OC provider will call pharmacy and update order, Verbalized understanding, PCP called for prescription refill for essential medication [facility]01-15-2025 NoteHistory Of Present Illness Elias Walker is [...] 3 weeks and was discontinued by his maintenance mechanic. Calcium abnormality related symptoms and history Constitutional [...] [] 4+ Relaxation p (more content not included)...[facility] 02-29-2024 History of Present illness Narrative* Jose Khanna, KENNETH-SINGLE WIRE SAW OPERATOR - 02/29/2024 3:20 PM EST Images from the original note were not included. [address] [place] [address] SUBJECTIVE: Patient ID: Elias Walker is a 38 y.o. male. Chief Complaint Patient presents with Diabetes Been running high. 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 He was previously taking Trulicity which [...] microalbuminuria, without long-term current use of insulin ([facility]) - POCT Hemoglobin A1c Uncontrolled type 2 diabetes mellitus with hyperglycemia ([facility]) - tirzepatide (MOUNJARO) 7.5 mg/0.5 mL pen injector; Inject 7.5 mg under the skin every 7 days. Type 2 diabetes mellitus with stage 3 chronic kidney disease and hypertension ([facility]) - tirzepatide (MOUNJARO) 7.5 mg/0.5 mL pen injector; Inject 7.5 mg under the skin every 7 days. Type 2 DM Today A1c 8.4%. Was 7.5% Blood sugars started to trend upwards approximately 2-3 weeks ago. Average has been mid to higher 200's per day. States he has been unable to obtain Victoza due to backorder cad designer status. He was previously taking -Trulicity which [...] VANESSA Taylor 02/29/24 1620 documented in this encounterChildren's Hospital of Columbus12-10-2024 History of Present illness Narrative* ANKIT Krishnamurthy [...] 9.6 oz) 12/31/23 127.9 kg (282 lb) [place] Body Weight [place] body weight: 61.5 kg (135 lb 9.3 oz) Adjusted ideal body weight: 87.7 kg (193 lb 5.6 oz) Lab Results: POCT A1c Lab Results Component Value Date MFTSJMM3O 7.5 (A) 11/23/2023 A1c Lab Results Component [...] lunch meal, and dinner maybe out at French restaurants or food at home. He does [...] instead) Diagnosis: Excessive carbohydrate intake, Overweight/obesity, and Cupz-qhx-qikqryawk-related knowledge deficit Related to Nrmc-mfn-uqctrypxn-related knowledge deficit As evidenced by Estimated energy [...] Diabetes and Nutrition Education documented in this encounterProMedica Memorial HospitalMobly [id number] Miscellaneous Notes* Telephone Encounter - Cande Ndiaye - 01/16/2024 9:52 AM EST We received a referral for education for Elias Walker 1985. However per [facility] Guidelines the services requested need to [...] Cande Ndiaye - 01/16/2024 9:52 AM EST [phone]. Thank you. * Telephone Encounter - Cande Ndiaye - 01/16/2024 9:52 AM EST We received your fax, but there are no services requested (MNT or DSMT), and there is no signature.I pended an order to the original message. It might be easier to have an MD/DO just sign it in [facility]. * Telephone Encounter - Cande Ndiaye - 01/16/2024 9:52 AM EST Spoke with Vivien at 's office. She requested that I fax a blank referral form to her so she can have Dr. Campos fill out and sign. Form faxed. * Telephone Encounter - Cande Ndiaye - 01/16/2024 9:52 AM EST Order faxed by documented in this encounterChildren's Hospital of [facility]11-12-2024 Telephone encounter Note* Telephone Encounter - Cande Ndiaye - 01/16/2024 9:52 AM EST We received a referral for education for Elias Walker 1985. However per [facility] Guidelines the services requested need to be ordered by an MD or DO. Please see pended order and have MD/DO sign if agreeable. Thank you [facility] Diabetes and Nutrition Education [facility]11-12-2024 Telephone encounter Note* Telephone Encounter - VANESSA Taylor - 01/16/2024 9:52 AM EST I printed the requisition. Dr. Campos signed the order. What is the number to fax? [facility]11-12-2024 Telephone encounter Note* Telephone Encounter - Cande Ndiaye - 01/16/2024 9:52 AM EST [phone]. Thank you. [facility]11-12-2024 Telephone encounter Note* Telephone Encounter - Cande Ndiaye - 01/16/2024 9:52 AM EST We received your fax, but there are no services requested (MNT or DSMT), and there is no signature.I pended an order to the original message. It might be easier to have an MD/DO just sign it in [facility]. [facility]11-12-2024 Telephone encounter Note* Telephone Encounter - Cande Ndiaye - 01/16/2024 9:52 AM EST Spoke with Vivien at MD's office. She requested that I fax a blank referral form to her so she can have Dr. Campos fill out and sign. Form faxed. [facility]11-12-2024 Telephone encounter Note* Telephone Encounter - Cande Ndiaye - 01/16/2024 9:52 AM EST Order faxed by [facility]11-12-2024 History of Present illness Narrative* Jose Khanna, KENNETH-SINGLE WIRE SAW OPERATOR - 01/16/2024 8:40 AM EST Images from the original note were not included. [address] [facility] [id number] SUBJECTIVE: Patient ID: Elias Walker is [...] microalbuminuria, without long-term current use of insulin ([facility]) - insulin detemir U-100 (LEVEMIR FLEXPEN) 100 [...] VANESSA Taylor 01/16/24 0917 documented in this encounterCentral Vermont Medical CenterStoryvine10-27-2024 Miscellaneous Notes* Telephone Encounter - Ryan Siddiqi [...] - High Blood Sugar-A-AH documented in this encounterChildren's Hospital of Columbus10-27-2024 Telephone encounter Note* Telephone Encounter - Ryan Siddiqi RN - 12/31/2023 11:58 AM EDT ----- Message from Joie sent at 12/31/2023 11:47 AM EDT ----- Contract: [id number] Juan sugar is 372 and last night it was over 400 he feels fine other then sleeping [facility]10-27-2024 Telephone encounter Note* Telephone Encounter - Ryan [...] Protocols used: Diabetes - High Blood Sugar-A-AH [facility]09-25-2024 Miscellaneous Notes* Telephone Encounter - Zenaida Mayer [...] to pt. Verbalizes understanding. documented in this encounterChildren's Hospital of Columbus09-25-2024 Telephone encounter Note* Telephone Encounter - Zenaida [...] (unifine pentips) 31 gauge x 1/4'' needle. [facility]09-25-2024 Telephone encounter Note* Telephone Encounter - VANESSA Taylor - 11/29/2023 3:54 PM EDT Done [facility]09-25-2024 Telephone encounter Note* Telephone Encounter - Zenaida Mayer CMA - 11/29/2023 3:54 PM EDT Relayed to pt. Verbalizes understanding. [facility]09-19-2024 History of Present illness Narrative* VANESSA Taylor - 11/23/2023 3:20 PM EDT Images from the original note were not included. [address] [facility] [address] SUBJECTIVE: Patient ID: Elias Walker is a [...] being taken. He does not see a cnc set up operator. Eye exam is not current. Hypertension This [...] improvement. Hypertensive end-organ damage includes kidney disease, CAD/NC, CVA and heart failure. Identifiable causes of [...] microalbuminuria, without long-term current use of insulin ([facility]) - POCT Hemoglobin A1c - liraglutide (VICTOZA [...] Moderate episode of recurrent major depressive disorder ([facility]) - cariprazine (VRAYLAR) 1.5 mg capsule; Take [...] stage 3 chronic kidney disease and hypertension ([facility]) - dapagliflozin propanediol (FARXIGA) 10 mg tablet; take 1 tablet by mouth every morning Anxiety and depression - FLUoxetine (PROzac) 20 mg capsule; Take 1 capsule (20 mg total) by mouth in the morning. Comprehensive diabetic foot examination, type 2 DM, encounter for ([facility]) Other orders - lisinopriL (PRINIVIL,ZESTRIL) 5 mg [...] VANESSA Taylor 11/23/23 1610 documented in this encounterChildren's Hospital of Columbus07-31-2024 History of Present illness Narrative* VANESSA Taylor - 10/04/2023 3:00 PM EDT CGM Application Instructed patient and his girlfriend, Nicolle on how to apply the Dexcom 7. Nicolle states that she understands and I have instructed them if they need to come back they can for his next application. VANESSA Taylor 10/04/23 1719 documented in this encounterChildren's Hospital of [facility]07-28-2024 Miscellaneous Notes* Telephone Encounter - VANESSA Linton - 10/01/2023 9:18 AM EDT refill documented in this encounterChildren's Hospital of Columbus07-28-2024 Telephone encounter Note* Telephone Encounter - VANESSA Linton - 10/01/2023 9:18 AM EDT refill [facility]07-17-2024 History of Present illness Narrative* VANESSA Taylor - 09/20/2023 3:00 PM EDT Images from the original note were not included. [address] [place] [address] SUBJECTIVE: Patient ID: Elias Walker is a [...] VANESSA Taylor 09/25/23 1012 documented in this encounterProMedica Memorial HospitalMobly [id number] Miscellaneous Notes* Telephone Encounter - Gladys Veras - 07/25/2023 11:09 AM EDT Called to reschedule 10/17 appointment documented in this encounterChildren's Hospital of [facility]05-21-2024 Telephone encounter Note* Telephone Encounter - Gladys Veras - 07/25/2023 11:09 AM EDT Called to reschedule 10/17 appointment [facility]05-14-2024 History of Present illness Narrative* Jose Khanna, KENNETH-JOSE - 07/18/2023 10:20 AM EDT Images from the original note were not included. [address] [facility] [id number] SUBJECTIVE: Patient ID: Elias Walker [...] being taken. He does not see a cnc set up operator. Eye exam is not current. Hypertension This [...] improvement. Hypertensive end-organ damage includes kidney disease, CAD/NC, CVA and heart failure. Identifiable causes of [...] microalbuminuria, without long-term current use of insulin ([facility]) - POCT Hemoglobin A1c - semaglutide (OZEMPIC) 0.25 mg or 0.5 mg(2 mg/1.5 mL) pen injector; Inject 0.5 mg under the skin every 7 days. - insulin detemir U-100 (LEVEMIR FLEXPEN) 100 unit/mL (3 mL) insulin pen; Inject 20 Units under theskin nightly. Primary hypertension Current moderate episode of major depressive disorder without prior episode ([facility]) Mixed hyperlipidemia A1c 8.2%, was 7.3 Discontinue [...] VANESSA Taylor 07/18/23 1214 documented in this encounterChildren's Hospital of Columbus04-22-2024 History of Present illness Narrative* Yuli Patel CMA - 06/26/2023 10:45 AM EDT Pt came in to be observed as to how to put Dexcom patch on. Significant other was taught also and it was uploaded the day of visit. documented in this encounterChildren's Hospital of [facility]04-10-2024 History of Present illness Narrative* VANESSA Taylor - 06/14/2023 1:30 PM EDT This patient was in today for application of his Dexcom and instructions on apply them at home. Nicolle, his girl friend, was here with him so she can administer this at home. VANESSA Taylor 06/19/23 1745 documented in this encounterChildren's Hospital of Columbus03-26-2024 Miscellaneous Notes* Telephone Encounter - aMrzena Vega CMA - 05/30/2023 1:13 PM EDT [...] I sent an email to Joe at [facility] to find out what is going on. [...] info which I provided. documented in this encounterChildren's Hospital of Columbus03-26-2024 Telephone encounter Note* Telephone Encounter - Marzena Vega CMA - 05/30/2023 1:13 PM EDT Pt's girlfriend called wondering how long it was going to take to get his dexcom in or if its the insurance holding it up ? [facility]03-26-2024 Telephone encounter Note* Telephone Encounter - VANESSA Taylor - 05/30/2023 1:13 PM EDT Vivien- do you know any information in regards to this? [facility]03-26-2024 Telephone encounter Note* Telephone Encounter - Vivien Rooney CMA - 05/30/2023 1:13 PM EDT I sent an email to Joe ying [facility] to find out what is going on. [facility]03-26-2024 Telephone encounter Note* Telephone Encounter - Marzena Vega CMA - 05/30/2023 1:13 PM EDT Thank you ladies [facility]03-26-2024 Telephone encounter Note* Telephone Encounter - Vivien Rooney CMA - 05/30/2023 1:13 PM EDT I called April and she did not get the fax. I just sent the fax to her again [facility] [employer] [id number] Telephone encounter Note* Telephone Encounter - Kelsy Alex - 05/30/2023 1:13 PM EDT Maite called back confirming receipt of the latest scan. She just needed his insurance info which I provided. [facility] [employer] [id number] History of Present illness Narrative* Jose Khanna APRN-SINGLE WIRE SAW OPERATOR - 05/10/2023 1:40 PM EST Images from the original note were not included. [address] [facility] [id number] SUBJECTIVE: Patient ID: Elias Walker is a [...] VANESSA Taylor 05/10/23 1653 documented in this encounterChildren's Hospital of [facility]03-05-2024 History of Present illness Narrative* VANESSA Linton [...] PCP in 2 days. VANESSA Linton 05/09/23 2371 documented in this encounterChildren's Hospital of Columbus03-01-2024 History of Present illness Narrative* Tereza Carrera, DIRECTOR PRODUCT-SINGLE WIRE SAW OPERATOR - 05/05/2023 9:10 AM EST [address] [place] [address] Patient: Elias Walker Date of : 1985 Encounter Date: 05/05/2023 History of Present Illness: The patient is a 37 y.o. male, an established patient, and is here for Chief Complaint Patient presents with Diabetes Sugar been [id number] . HPI This pt is new to me, his PCP was unavailable. Medical history reviewed with pt, he has partial recall memory of his extensive medical history/confirmed most with chart. [place] his sugars are >250 with several [...] about having low-sodium. He also sees a maintenance mechanic and he has undergone a CABG about 7 months ago he thinks. He does not recall any recent follow-up with Cardiology. Problem List Items Addressed This Visit Endocrine Type 2 diabetes mellitus with microalbuminuria, without long-term current use of insulin ([facility] - Primary Relevant Medications insulin [...] microalbuminuria, without long-term current use of insulin ([facility]) Fasting hyperglycemia Other orders - insulin detemir [...] He should stay well hydrated as his maintenance mechanic does not have him on a fluid [...] VEGA APRN-CNP 05/08/23 0930 documented in this encounterChildren's Hospital of [facility]02-14-2024 History of Present illness Narrative* Jose Khanna, VANESSA - 04/19/2023 9:00 AM EST Images from the original note were not included. [address] [place] [address] SUBJECTIVE: Patient ID: Elias Walker is a [...] being taken. He does not see a cnc set up operator. Eye exam is not current. Hypertension This [...] improvement. Hypertensive end-organ damage includes kidney disease, CAD/NC, CVA and heart failure. Identifiable causes of [...] microalbuminuria, without long-term current use of insulin ([facility]) - dulaglutide 3 mg/0.5 mL pen injector; Inject 3 mg under the skin every 7 days. Type 2 diabetes mellitus with stage 3 chronic kidney disease and hypertension ([facility]) - dapagliflozin propanediol (FARXIGA) 10 mg tablet; [...] VANESSA Taylor 04/24/23 0935 documented in this encounterChildren's Hospital of [facility]01-23-2024 History of Present illness Narrative* MAGUI Rockwell [...] MAGUI Rockwell 03/28/23 1131 documented in this encounterProMedica Memorial HospitalMobly [id number] History of Present illness Narrative* Jose Khanna, KENNETH-SINGLE WIRE SAW OPERATOR - 03/08/2023 4:30 PM EST Images from the original note were not included. Chief Complaint Patient presents with Follow-up [address] [place] [address] SUBJECTIVE: Patient ID: Elias Walker is [...] being taken. He does not see a cnc set up operator.Eye exam is not current. Hypertension This is [...] improvement. Hypertensive end-organ damage includes kidney disease, CAD/NC, CVA and heart failure. Identifiable causes of [...] microalbuminuria, without long-term current use of insulin ([facility]) - POCT Hemoglobin A1c - dulaglutide (TRULICITY) [...] mouth nightly. Stage 3b chronic kidney disease ([facility]) A1c 7.3% Increase Trulicity to 1.5 mg [...] VANESSA Taylor 03/22/23 1032 documented in this encounterProMedica Memorial HospitalMobly [id number] Instructions* Patient Instructions* VANESSA Taylor - 03/08/2023 4:30 PM EST Are You Ready To Kick The Habit? Free Tobacco Cessation Resources [facility] Services [facility] provide all employees with free tobacco cessation services that include: Counseling to understand nicotine addiction Education about medications that can help you successfully quit Assistance with developing a plan to quit Call to set up an individual appointment or find out when group classes will be held: [facility]: [phone] [facility]: [phone] [facility]: [phone] [facility]: [phone] Quit Smoking Action Plan and Resources [facility] offers an eight-week, online smoking cessation plan to all [facility] employees, regardless of whether [employer] is your medical insurance provider. Go to [email or web address] and click the Health Risk Assessment and Resources link to get started. In the [employer] menu, click Action Plans instead of Health Risk Assessment to access the Quit Smoking Action Plan. Additional smoking cessation resources are also available to all [facility] employees on the [email or web address] web page at [email or web address]/[email or web address]. [employer] Tobacco Cessation Program If [employer] is your medical insurance provider, there are more free resources available to you, including: No copays or deductibles on local tobacco cessation counseling services to help you quit Prescription assistance for tobacco cessation medications to help you quit For details about the tobacco cessation program available to [employer] members, go to www.[employer] (Search: Tobacco Cessation Program). [place] Tobacco Quit Line 4-928-TKPY-NOW ( ) is a toll-free, telephonic service that helps [place] residents quit smoking and using tobacco. It is staffed by experts who tailor a quit plan for you and provide you with advice. [place] Tobacco Quit Line 1-665-TCFY-NOW ( ) is a toll-free, telephonic service that helps [place] residents quit smoking and using tobacco. It is staffed by experts who tailor a quit plan for you and provide you with advice. Two weeks of nicotine replacement therapy may be provided at no charge, if needed. Additional Resources These national organizations also offer free information and resources to help you quit tobacco: [employer] [facility] Society--www.cancer.org/healthy/stayawayfromtobacco [place] [employer] Association--www.heart.org (Search: Quit Smoking) Centers for Disease Control and Prevention--www.cdc.gov/tobacco [place] Lung Association--www.lungusa.org * Attachments The following attachments cannot be sent through Care Everywhere. * Anxiety Discharge Instructions, Adult (South Korean) documented in this encounterCentral [facility] CenterStoryvine06-12-[facility]23 History of Present illness Narrative* Elyse Arellano, [...] sets may be added. Education: [x] Equipment [employer] [] Understanding BP [x] S/S to report [...] Quality of Life/PHQ9 Intervention: [] Psych Consult/social media marketing manager [] Physician Referral Medications: Prozac Education: [] [...] dizziness at <5 METs or during recovery NC or cardiac surgery complicated by cardiogenic shock, [...] resting or exercise induced complex dysrhythmias Uncomplicate NC, CABG, angioplasty, atherectomy, or stent Normal hemodynamic [...] weight over the next 30 days, utilizing director medical economics recommendations, moderating nutrional intake, and performing regular [...] patient. Continuesto vape. documented in this encounterBON CLE[facility] AVONDALESurveypal Phone: [phone]) 887-236405-15-2023 History of Present illness Narrative* Aaliyah Krishnamurthy [...] sets may be added. Education: [x] Equipment [employer] [] Understanding BP [x] S/S to report [...] Quality of Life/PHQ9 Intervention: [] Psych Consult/social media marketing manager [] Physician Referral Medications: Education: [] Stress [...] dizziness at <5 METs or during recovery NC or cardiac surgery complicated by cardiogenic shock, [...] resting or exercise induced complex dysrhythmias Uncomplicate NC, CABG, angioplasty, atherectomy, or stent Normal hemodynamic [...] weight over the next 30 days utilizing director medical economics recommendations, including: Limit sodium to less than [...] in daily diet (whole wheat bread, buns, [place] muffins, brown rice, whole wheat pasta, etc.). [...] past 30 days. documented in this encounterBON [employer] Phone: 1(722) 817-873005-01-2023 History of Present illness Narrative* Emma Miramontes [...] in daily diet (whole wheat bread, buns, [place] muffins, brown rice, whole wheat pasta, etc.). [...] Recommendations are based on guidelines from the [place] Heart Association, [place] Diabetes Association and current literature. Feel free to call with questions or concerns [phone] or [phone], LD RDN, ANKIT documented in this encounterBON [employer] Phone: [phone]) 129-668504-03-2023 History of Present illness Narrative* Uriel Grier [...] urology appointment with Dr. Victoria in in [place] on 06/21/2022 and will follow-up about his renal cysts there. Plan: No changes in medication Stable for discharge from nephrology standpoint Come back to see [facility] at our [place] office in 2 to 3 weeks. I did give the patient our office number to set that up. Nutrition Avoid nephrotoxic drugs/contrast exposure. . Uriel Grier MD Nephrology Attending Physician [facility] 06/06/2022 This note is created with [...] gm pro/day Weight Used for Protein Requirements: [place] Fluid (ml/day): per MD Method Used for [...] outpatient diabetes education Linda Alvarado RD Contact: [phone] * KENNETH Napier NP - 06/06/2022 12:06 PM EDT Images from the original note were not included. [facility] [employer] Progress Note Date: 06/04/2022 Patient name: Elias Walker Date of admission: 05/23/2022 12:00 PM Date of : 1985 PCP: Jose Khanna APRN - SINGLE WIRE SAW OPERATOR Reason for Admission: NSTEMI (non-ST elevated myocardial [...] Summary: The study was performed by the Laundromat Worker, Cardiac Fellow, and the Certified Teacher Assistant in the Tube Buffer without complications. Consent was obtained from the [...] outpatient as patient leaning towards outpatient . [facility] [employer] [phone] * ADDI Christensen - 06/05/2022 1:28 PM EDT Occupational Therapy Facility/Department: [place] [address] Occupational Daily Treatment Note Name: Elias Walker [...] the original note were not included. [place] [employer] Progress Note Date: 06/04/2022 Patient name: Elias Walker Date of admission: 05/23/2022 12:00 PM Date of : 1985 PCP: Jose Khanna APRN - SINGLE WIRE SAW OPERATOR Reason for Admission: NSTEMI (non-ST elevated myocardial [...] Summary: The study was performed by the Laundromat Worker, Cardiac Fellow, and the Certified Teacher Assistant in the Tube Buffer without complications. Consent was obtained from the [...] done prior to discharge or as outpatient [facility] [employer] [phone] Attending Physician Statement I have discussed the case of Elias Walker including pertinent history and exam findings with thestudent/resident/fellow. I have seen and examined the patient and the salguero elements of the encounterhave been performed by me. I agree with the assessment, plan and orders as documented by the resident With changes made to the note. . [facility] [employer] [phone] * Eddie Machado, DIRECTOR PRODUCT - HEAD MACHINIST - 06/05/2022 11:25 AM EDT [facility] Cardiothoracic Surgery Progress Note 06/05/2022 11:25 [...] ambulate TID today Plan for home with [facility]-cardiology to have follow up for stent to RCA in 4-6weeks 06-04-22 Please leave stone one more day Started flomax Nephrology following to assist with renal function-patient making normal UO. Nephrology to manage diuretics We will eval for Ct removal tomorrow AM Please continue with PT OT DC planning home with [facility] Cardiology-this patient will need stent to RCA KENNETH WILLINGHAM NP * LADONNA POSADA - 06/05/2022 9:29 AM EDT Physical Therapy Facility/Department: [facility] CAR 1- SICU Daily Treatment Note Name: [...] Patient : Elias Walker; 36 y.o. Location: [facility]/1015- Attending: Ariel Purdy MD Admit Date: 05/23/2022 [...] urology appointment with Dr. Victoria in in [place] on 06/21/2022 and will follow-up about his [...] 06/04/2022 3:25 PM EDT Occupational Therapy Facility/Department: [address] Occupational Daily Treatment Note Name: Elias [...] lip breathing with good return. AM-PAC Score AM-[facility] Inpatient Daily Activity Raw Score: 16 (06/04/221527) AM-[facility] Inpatient ADL T-Scale Score : 35.96 (06/04/22 [...] within reach. FERNANDA Christensen * Eddie Machado, DIRECTOR PRODUCT - HEAD MACHINIST - 06/04/2022 11:20 AM EDT [facility] Cardiothoracic Surgery Progress Note 06/04/2022 11:21 [...] with PT OT DC planning home with [facility] Cardiology-this patient will need stent to RCA KENNETH WILLINGHAM NP * LADONNA POSADA - 06/04/2022 10:39 AM EDT Physical Therapy Facility/Department: [facility] CAR 1- SICU Daily Treatment Note Name: [...] urology appointment with Dr. Victoria in in [place] on 06/21/2022 and will follow-up about his [...] the original note were not included. [place] [employer] Progress Note Date: 06/04/2022 Patient name: Elias Walker Date of admission: 05/23/2022 12:00 PM Date of : 1985 PCP: KENNETH Taylor CNP Reason for Admission: NSTEMI (non-ST elevated myocardial infarction) ([facility]) [I21.4] Subjective: Seen and examined [...] Summary: The study was performed by the Laundromat Worker, Cardiac Fellow, and the Certified Teacher Assistant in the Tube Buffer without complications. Consent was obtained from the [...] at this time, will follow and evaluate. [facility] [employer] [phone] Attending Physician Statement I have discussed the case of Elias Walker including pertinent history and exam findings with thestudent/resident/fellow. I have seen and examined the patient and the salguero elements of the encounterhave been performed by me. I agree with the assessment, plan and orders as documented by the resident With changes made to the note. . [facility] [employer] [phone] * Linda Garnica OT - 06/03/2022 4:20 PM EDT Occupational Therapy Facility/Department: [facility] CAR 1- SICU Occupational Therapy Initial Assessment [...] balance Assessment: Patient completed functional transfers at [facility] using RW for support with use [...] Ambulation Assistance: Independent Transfer Assistance: Independent Active Digital Art Director: Yes Mode of Transportation: [employer] Occupation: Unemployed Leisure & Hobbies: Eat, video [...] Outcome: Verbalized understanding;Continued education needed AM-PAC Score AM-[facility] Inpatient Daily Activity Raw Score: 20 (06/03/221620) AM-[facility] Inpatient ADL T-Scale Score : 42.03 (06/03/221620) ADL Inpatient [facility] 0-100% Score: 38.32 (06/03/221620) ADL Inpatient [facility] G-Code Modifier : CJ (06/03/221620) Goals [...] Patient : Elias Walker; 36 y.o. Location: [address] [place] [address] Attending: Ariel Purdy MD Admit Date: 05/23/2022 [...] neurology appointment with Dr. Victoria in in [place] on 06/21/2022 and will follow-up about his [...] if greater than 250 cc, will require Sotne catheter placement again and possible urology consult. BMP in a.m. as well. Will follow. Nutrition Please ensure that patient is on a renal diet/TF. Avoid nephrotoxic drugs/contrast exposure. Talib Saldaña MD [facility] This note is created with the assistance [...] since stone removal. Bladder scan showed 25ml. Voice Writing Reporter updated Randy Machado NP and was toldto place stone. * Lorna Moyer MD - 06/03/2022 3:00 PM EDT Images from the original note were not included. [facility] [employer] Progress Note Date: 06/03/2022 Patient name: Elias Walker Date of admission: 05/23/2022 12:00 PM Date of : 1985 PCP: Jose Khanna APRN - JO[facility] Reason for Admission: NSTEMI (non-ST elevated myocardial infarction) ([facility]) [I21.4] Subjective: Seen and examined [...] Summary: The study was performed by the Laundromat Worker, Cardiac Fellow, and the Certified Teacher Assistant in the Tube Buffer without complications. Consent was obtained from the [...] need nephrology clearance prior to possible intervention [facility] [employer] [phone] Attending Physician Statement I have discussed the case of Elias Walker including pertinent history and exam findings with thestudent/resident/fellow. I have seen and examined the patient and the salguero elements of the encounterhave been performed by me. I agree with the assessment, plan and orders as documented by the resident With changes made to the note. . [facility] [employer] [phone] * Юлия Peraza, PT - 06/03/2022 11:21 AM EDT Physical Therapy Facility/Department: [facility] 1- SICU Physical Therapy Initial Assessment Name: Elias Walker : 1985 Date of Service: 06/03/2022 Chief Complaint Patient presents with Chest Pain No longer has chest pain, presented to [facility] with chest pain Polydipsia S/p CABGx3 [...] Ambulation Assistance: Independent Transfer Assistance: Independent Active Digital Art Director: Yes Mode of Transportation: [employer] Occupation: Unemployed Leisure & Hobbies: Eat, video [...] - JOSE - 06/03/2022 9:58 AM EDT [facility] Cardiothoracic Surgery Daily Progress Note Surgeon: [...] 9:38 AM EDT SPIRITUAL CARE DEPARTMENT - [facility] PROGRESS NOTE Shift date: 06/03/22 Shift day: Monday Shift # 1 Room # 1015/1015-01 Name: Elias Walker Referral: nurse Admit Date & Time: 05/23/2022 12:00 PM Assessment: Elias Walker is a 36 y.o. male in the hospital recovering from surgery. Ear Flap Binder responded to patient's room per Spiritual Consult for 'post-surgical support'. Ear Flap Binder was welcomed into the room by patient and his girlfriend (Nicolle). The patient was sitting up in a chair, and his girlfriend was moving around the room. Ear Flap Binder observed patient to be calm, his girlfriend to be anxious, and both to be coping well. Intervention: Voice Writing Reporter introduced self and title as general clerk Voice Writing Reporter offered space for the patient and his girlfriend to express feelings, needs, and concerns and provided a ministry presence. Through conversation, general clerk learned that patient's girlfriend may need assistance with Home Away From Home in the future; she will communicate need to nurse/s and general clerk/s when/if need arises. Ear Flap Binder provided a non-anxious presence, practiced active listening, and offered a blessing of peace. Outcome: Patient and his girlfriend seemed receptive to general clerk presence and expressed gratitude for general clerk visit. Plan: Chaplains will remain available to [...] Outcome Receptive;Expressed Gratitude . Spiritual Care Department [facility] [phone] * Patricio Adame RCP - 06/03/2022 1:29 [...] neurology appointment with Dr. Victoria in in [place] on 06/21/2022 and will follow-up about his [...] Preciado MD Internal Medicine Resident PGY 3 [facility] 06/02/2022, 9:31 AM This note is created with the assistance of a speech-recognition program. While intending to generate a document that actually reflects the content of the visit, no guarantees can be provided that every mistake has been identified and corrected by editing. * Solange Mercer MD - 06/02/2022 8:29 AM EDT Images from the original note were not included. [facility] Office: [phone] Sony Raymond DO, Brodie Campos, DO, Skip [...] Emma Arnold MD, Meghann Cooper MD, Michele Hadrin MD, Jerry Davis DO, Justin Gaines MD, Mayra Chicas, SINGLE WIRE SAW OPERATOR, Riri Serna, SINGLE WIRE SAW OPERATOR, Desire Harley, SINGLE WIRE SAW OPERATOR, Ariel Stewart, SINGLE WIRE SAW OPERATOR, Jennifer Magaña, UMESH, Patricia Harrington, SINGLE WIRE SAW OPERATOR, Pauline Charles, SINGLE WIRE SAW OPERATOR, Kelli Sarah SINGLE WIRE SAW OPERATOR, Elizabeth Cummings SINGLE WIRE SAW OPERATOR, Karlie Kenney, SINGLE WIRE SAW OPERATOR, ALESSANDRA CarterC, Sherron Ngo, REGISTER OF DEEDS, Nyasia Lea, SINGLE WIRE SAW OPERATOR, Ivonne Alicea, SINGLE WIRE SAW OPERATOR [facility] IN-PATIENT SERVICE [facility] Progress Note 06/02/2022 8:30 AM Name: Elias Walker Acct: [id number] Room: Day: 10 Admit Date: 05/23/2022 12:00 PM PCP: KENNETH Taylor CNP Code Status: Full Code Subjective: C/C: Chief Complaint Patient presents with Chest Pain No longer has chest pain, presented to [facility] with chest pain Polydipsia Interval History [...] 05:30 AM PBEA 4 09/06/2021 04:41 AM [id number] 98 05/31/2022 05:30 AM FIO2 3.0 05/31/2022 [...] 05/31/2022 Yes NSTEMI (non-ST elevated myocardial infarction) ([facility]) 05/28/2022 Yes Morbid obesity ([facility]) 05/24/2022 Yes Anxiety 05/23/2022 Yes Allergic rhinitis 05/23/2022 Yes HHNC (hyperglycemic hyperosmolar nonketotic coma) ([facility]) 05/23/2022 Yes Essential hypertension 05/31/2022 [...] urology appointment with Dr. Victoria in in [place] on 06/21/2022 and will follow-up about his renal cysts there. Solange Mercer MD 06/02/2022 8:30 AM * Martha Lyman RN - 06/01/2022 10:00 PM EDT Pt. Up in bathroom washing with CHG, shaving of chest, bilateral arms, bilateral lower extremities completed per commercial insurance underwriter at bedside. * KENNETH Baltazar CNP - 06/01/2022 11:20 AM EDT Images from the original note were not included. [facility] [employer] Progress Note Date: 06/01/2022 Patient name: Elias Walker Date of admission: 05/23/2022 12:00 PM Date of : 1985 PCP: Jose Khanna APRN - SINGLE WIRE SAW OPERATOR Reason for Admission: NSTEMI (non-ST elevated myocardial infarction) ([facility]) [I21.4] Subjective: Clinical Changes /Abnormalities: [...] Summary: The study was performed by the Laundromat Worker, Cardiac Fellow, and the Certified Teacher Assistant in the Tube Buffer without complications. Consent was obtained from the [...] Nifedipine. No TYRON/ARB d/t CKD Will follow [facility] [employer] [facility]. [phone] * Solange Mercer MD - 06/01/2022 10:10 AM EDT Images from the original note were not included. [facility] Office: [phone] Sony Raymond DO, Brodie Campos DO, Skip [...] Stewart, JOSE, Jennifer Magaña, UMESH, Patricia Harrington, SINGLE WIRE SAW OPERATOR, Pauline Charles, SINGLE WIRE SAW OPERATOR, Kelli Sarah, SINGLE WIRE SAW OPERATOR, Elizabeth Cummings, SINGLE WIRE SAW OPERATOR, Karlie Kenney, JOSE, Ben Cesar PA-C, Sherron Ngo, REGISTER OF DEEDS, Nyasia Lea, JOSE, Ivonne Alicea, JOSE [facility] IN-PATIENT SERVICE [facility] Progress Note 06/01/2022 12:59 PM Name: Elias Walker Acct: [id number] Room: Day: 9 Admit Date: 05/23/2022 12:00 PM PCP: KENNETH Taylor CNP Code Status: Full Code Subjective: C/C: Chief Complaint Patient presents with Chest Pain No longer has chest pain, presented to [facility] with chest pain Polydipsia Interval History [...] 05:30 AM PBEA 4 09/06/2021 04:41 AM [id number] 98 05/31/2022 05:30 AM FIO2 3.0 05/31/2022 [...] Yes Acute kidney injury superimposed on CKD ([facility]) 05/31/2022 Yes NSTEMI (non-ST elevated myocardial infarction) ([facility]) 05/28/2022 Yes Morbid obesity ([facility]) 05/24/2022 Yes Anxiety 05/23/2022 Yes Allergic rhinitis 05/23/2022 Yes HHNC (hyperglycemic hyperosmolar nonketotic coma) ([facility]) 05/23/2022 Yes Essential hypertension 05/31/2022 [...] - 99 mg/dL 103 (H) CALCIUM, SERUM, [id number] 8.6 - 10.4 mg/dL 10.6 (H) (H): [...] neurology appointment with Dr. Victoria in in [place] on 06/21/2022 and will follow-up about his renal cysts there. Plan: Continue current blood pressure medications. Continue monitor strict I's and O's and renal function. Labs reviewed, okay for surgery cleared for CABG from nephrology standpoint Start patient on Sensipar. Nutrition Please ensure that patient is on a renal diet/TF. Avoid nephrotoxic drugs/contrast exposure. Sarwat Preciado MD Internal Medicine Resident PGY 3 [facility] 06/01/2022, 9:39 AM Attending Physician Statement I [...] neurology appointment with Dr. Victoria in in [place] on 06/21/2022 and will follow-up about his [...] Preciado MD Internal Medicine Resident PGY 3 [facility] 05/31/2022, 9:54 AM Attending Physician Statement I [...] from the original note were not included. [facility] Office: [phone] Sony Raymond DO, Brodie Campos DO, Skip Diggs DO, Rubén Swain DO, Lee Ann Saldaña MD, Love Cortez MD, Sultana Harley MD, Solange Mercer MD, Augusto Santizo MD, Lukas Angulo MD, Avelino Kent DO, Yanelis Grijalva MD, Fly Zapata DO, Jeaneth Begum MD, John Ricks MD, Madison Raymond DO, Nasra Schulte MD, Alessio Bhat MD, Eddie Rader DO, iTara Ladd MD, Emma Arnold MD, Meghann Cooper MD, Michele Hardin MD, Jerry Davis DO, Justin Gaines MD, Mayra Chicas, SINGLE WIRE SAW OPERATOR, Riri Serna, SINGLE WIRE SAW OPERATOR, Desire Harley, SINGLE WIRE SAW OPERATOR, Ariel Stewart, SINGLE WIRE SAW OPERATOR, Jennifer Magaña, UMESH, Patricia Harrington, SINGLE WIRE SAW OPERATOR, Pauline Charles, SINGLE WIRE SAW OPERATOR, Kelli Sarah, SINGLE WIRE SAW OPERATOR, Elizabeth Cummings, SINGLE WIRE SAW OPERATOR, Karlie Keneny, SINGLE WIRE SAW OPERATOR, Ben Cesar PACarriC, Sherron Ngo, REGISTER OF DEEDS, Nyasia Lea, SINGLE WIRE SAW OPERATOR, Ivonne Alicea, SINGLE WIRE SAW OPERATOR [facility] IN-PATIENT SERVICE [facility] Progress Note 05/31/2022 4:17 PM Name: Elias Walker Acct: [id number] Room: Day: 8 Admit Date: 05/23/2022 12:00 PM PCP: KENNETH Taylor CNP Code Status: Full Code Subjective: C/C: Chief Complaint Patient presents with Chest Pain No longer has chest pain, presented to [facility] with chest pain Polydipsia Interval History [...] 05:30 AM PBEA 4 09/06/2021 04:41 AM [id number] 98 05/31/2022 05:30 AM FIO2 3.0 05/31/2022 [...] Yes Acute kidney injury superimposed on CKD ([facility]) 05/31/2022 Yes NSTEMI (non-ST elevated myocardial infarction) ([facility]) 05/28/2022 Yes Morbid obesity ([facility]) 05/24/2022 Yes Anxiety 05/23/2022 Yes Allergic rhinitis 05/23/2022 Yes HHNC (hyperglycemic hyperosmolar nonketotic coma) ([facility]) 05/23/2022 Yes Essential hypertension 05/31/2022 [...] 10.6* MARIO: Lab Results Component Value Date/Time MRAIO NEGATIVE 08/30/2021 10:34 AM SPEP: Lab Results [...] neurology appointment with Dr. Victoria in in [place] on 06/21/2022 and will follow-up about his [...] exposure. Talib Saldaña MD [facility] This note is created with the assistance [...] insulins in past also. He trained at [facility] and has ability to read food [...] up HCP appointments- stated Jose Khanna, DIRECTOR PRODUCT 05/26/22 rs reinforced _x__ Medications - Insulin [...] [email or web address] _x__ Handout - Be safe with [place] teaching sheet - / www.DiabetesScan.org _x__ Handout - How to Use an Insulin Pen - handout with QR code - [employer] nielsen Current as of [id number] _x__ Emergency [...] with bedside RN RECOMMENDATIONS INPATIENT PLAN: _x__ Software Lead Consult this admission for education on CHO [...] -up education at outpatient diabetes education at [facility]. An ordered is needed for [...] from the original note were not included. [facility] Office: [phone] Sony Raymond DO, Bordie Campos DO, Skip Diggs DO, Rubén Swain [...] Magaña, UMESH, Patricia Harrington CNP, Pauline Charles SINGLE WIRE SAW OPERATOR, Kelli Sarah SINGLE WIRE SAW OPERATOR, Elizabeth Cummings, SINGLE WIRE SAW OPERATOR, Karlie Kenney SINGLE WIRE SAW OPERATOR, Ben Cesar PA-C, Sherron Ngo, REGISTER OF DEEDS, Nyasia Lea, SINGLE WIRE SAW OPERATOR, Ivonne Alicea, SINGLE WIRE SAW OPERATOR [facility] IN-PATIENT SERVICE [facility] Progress Note 05/30/2022 12:35 PM Name: Elias Walker Acct: [id number] Room: IP Day: 7 Admit Date: 05/23/2022 12:00 PM PCP: KENNETH Taylor CNP Code Status: Full Code Subjective: C/C: Chief Complaint Patient presents with Chest Pain No longer has chest pain, presented to [facility] with chest pain Polydipsia Interval History [...] 04:09 AM PBEA 4 09/06/2021 04:41 AM [id number] 98 09/06/2021 04:41 AM FIO2 40.0 09/06/2021 [...] Yes Acute kidney injury superimposed on CKD ([facility]) 05/28/2022 Yes NSTEMI (non-ST elevated myocardial infarction) ([facility]) 05/28/2022 Yes Morbid obesity ([facility]) 05/24/2022 Yes Anxiety 05/23/2022 Yes Allergic rhinitis 05/23/2022 Yes HHNC (hyperglycemic hyperosmolar nonketotic coma) ([facility]) 05/23/2022 Yes Primary hypertension 05/28/2022 [...] Anthropometric Measures: Height: 5' 4 (162.6 cm) [place] Body Weight (IBW): 130 lbs (59 kg) [...] 2500 kcals/day Weight Used for Protein Requirements: [place] Protein (g/day): 100-130 gm pro/day Method Used [...] diabetes education Juju Mishra RD, ANKIT Contact: [phone] * KENNETH Napier NP - 05/30/2022 11:31 AM EDT Images from the original note were not included. [facility] [employer] Progress Note Date: 05/30/2022 Patient name: Elias Walker Date of admission: 05/23/2022 12:00 PM Date of : 1985 PCP: Jose Khanna, DIRECTOR PRODUCT - SINGLE WIRE SAW OPERATOR Reason for Admission: NSTEMI (non-ST elevated myocardial [...] Summary: The study was performed by the Laundromat Worker, Cardiac Fellow, and the Certified Teacher Assistant in the Tube Buffer without complications. Consent was obtained from the [...] III (HCC) NSTEMI (non-ST elevated myocardial infarction) ([facility]) Hypertensive crisis Morbid obesity (HCC) Anxiety Allergic rhinitis HHNC (hyperglycemic hyperosmolar nonketotic coma) ([facility]) Plan of Treatment: Stable. Cath as above. Plans for CABG on Monday noted by CTS. Support provided. Continue ASA, statin ECHO as above. Preserved LVEF without significant valvular disease Continue Coreg and Nifedipine. No TYRON/ARB d/t CKD Will follow [facility] [employer] [phone] * KENNETH Baltazar CNP - 05/29/2022 11:28 AM EDT Images from the original note were not included. [facility] [employer] Progress Note Date: 05/29/2022 Patient name: Elias Walker Date of admission: 05/23/2022 12:00 PM Date of : 1985 PCP: KENNETH Taylor CNP Reason for Admission: NSTEMI (non-ST elevated myocardial infarction) ([facility]) [I21.4] Subjective: Clinical Changes /Abnormalities: [...] Summary: The study was performed by the Laundromat Worker, Cardiac Fellow, and the Certified Teacher Assistant in the Tube Buffer without complications. Consent was obtained from the [...] proteinuria CKD (chronic kidney disease), stage III ([facility]) NSTEMI (non-ST elevated myocardial infarction) ([facility]) Hypertensive crisis Morbid obesity (HCC) Anxiety Allergic rhinitis HHNC (hyperglycemic hyperosmolar nonketotic coma) ([facility]) Plan of Treatment: Stable. Cath as above. Plans for CABG on Monday noted by CTS. Support provided. Continue ASA, statin ECHO as above. Preserved LVEF without significant valvular disease BP with some improvement. Continue Coreg and will Nifedipine. No TYRON/ARB d/t CKD [facility] [employer] [employer] [facility]. [phone] * Avelino Kent DO - 05/29/2022 11:15 AM EDT Images from the original note were not included. [facility] Office: [phone] Sony Raymond DO, Brodie Campos DO, Skip [...] Chicas CNP, Riri Serna CNP, Desire Harley SINGLE WIRE SAW OPERATOR, Ariel Stewart SINGLE WIRE SAW OPERATOR, Jennifer Magaña, UMESH, Patricia Harrington, SINGLE WIRE SAW OPERATOR, Pauline Charles CNP, Kelli Sarah CNP, Elizabeth Cummings SINGLE WIRE SAW OPERATOR, Karlie Kenney SINGLE WIRE SAW OPERATOR, Ben Cesar PACarriC, Sherron Ngo, REGISTER OF DEEDS, Nyasia Lea, SINGLE WIRE SAW OPERATOR, Ivonne Alicea, SINGLE WIRE SAW OPERATOR [facility] IN-PATIENT SERVICE [facility] Progress Note 05/29/2022 11:15 AM Name: Elias Walker Acct: [id number] Room: IP Day: 6 Admit Date: 05/23/2022 12:00 PM PCP: KENNETH Taylor CNP Code Status: Full Code Subjective: C/C: Chief Complaint Patient presents with Chest Pain No longer has chest pain, presented to [facility] with chest pain Polydipsia Interval History [...] 04:09 AM PBEA 4 09/06/2021 04:41 AM [id number] 98 09/06/2021 04:41 AM FIO2 40.0 09/06/2021 [...] Yes Acute kidney injury superimposed on CKD ([facility]) 05/28/2022 Yes NSTEMI (non-ST elevated myocardial infarction) ([facility]) 05/28/2022 Yes Morbid obesity ([facility]) 05/24/2022 Yes Anxiety 05/23/2022 Yes Allergic rhinitis 05/23/2022 Yes HHNC (hyperglycemic hyperosmolar nonketotic coma) ([facility]) 05/23/2022 Yes Primary hypertension 05/28/2022 [...] 9:09 PM EDT SPIRITUAL CARE DEPARTMENT - [facility] PROGRESS NOTE Shift date: 05/28/2022 Shift day: Monday Shift # 3 Room # Name: Elias Walker Samaritan: Non-Druze Place of caodaism: Unknown Referral: Routine Visit Admit Date & Time: 05/23/2022 12:00 PM Assessment: Elias Walker is a 36 y.o. male in the hospital because of undergoing a Heart Catheterization. Per report, patient was found to need Open Heart Surgery. Patient was sitting up in hospital bed, when general clerk visited. Patient's girlfriend, Nicolle, was also present in room at time of visit. Intervention: Ear Flap Binder visited per Spiritual Care Consult for Advance Directives. Voice Writing Reporter introduced self and title as general clerk. Ear Flap Binder learned from patient that he will be undergoing Open Heart Surgery on Monday. Ear Flap Binder learned from patient that he would like his girlfriend, Nicolle, named as his primarydecision maker, as his mother lives in [place]. Ear Flap Binder assisted patient in completing Advance Directive documents and made copies for patient's girlfriend, as well as copies for patient's paper chart. Ear Flap Binder returned patient's completed documents to patient in room. Outcome: Patient thanked general clerk for visit and care. Plan: Chaplains will [...] (comment) (as needed) . Spiritual Care Department [facility] [phone] * Avelino Kent DO - 05/28/2022 10:17 AM EDT Images from the original note were not included. [facility] Office: [phone] Sony Raymond DO, Brodie Campos DO, Skip [...] Stewart CNP, Jennifer Magaña DNP, Patricia Harrington, SINGLE WIRE SAW OPERATOR, Pauline Charles SINGLE WIRE SAW OPERATOR, Kleli Sarah SINGLE WIRE SAW OPERATOR, Elizabeth Cummings, SINGLE WIRE SAW OPERATOR, Karlie Kenney, SINGLE WIRE SAW OPERATOR, ALESSANDRA CarterC, Sherron Ngo, REGISTER OF DEEDS, Nyasia Lea, SINGLE WIRE SAW OPERATOR, Ivonne Alicea, SINGLE WIRE SAW OPERATOR [facility] IN-PATIENT SERVICE [facility] Progress Note 05/28/2022 10:17 AM Name: Elias Walker Acct: [id number] Room: IP Day: 5 Admit Date: 05/23/2022 12:00 PM PCP: KENNETH Taylor CNP Code Status: Full Code Subjective: C/C: Chief Complaint Patient presents with Chest Pain No longer has chest pain, presented to [facility] with chest pain Polydipsia Interval History [...] 04:09 AM PBEA 4 09/06/2021 04:41 AM [id number] 98 09/06/2021 04:41 AM FIO2 40.0 09/06/2021 [...] * (Principal) NSTEMI (non-ST elevated myocardial infarction) ([facility]) 05/23/2022 Yes Hypertensive crisis 05/23/2022 Yes OZZIE (acute kidney injury) ([facility]) 05/24/2022 Yes Morbid obesity ([facility]) 05/24/2022 Yes Anxiety 05/23/2022 Yes Allergic rhinitis 05/23/2022 Yes HHNC (hyperglycemic hyperosmolar nonketotic coma) ([facility]) 05/23/2022 Yes Hypertension, essential 05/24/2022 Yes Overview Signed 09/28/2021 1:05 PM by Martin Serrano MD Blood pressures running in the 140-150 systolic range 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 He went to [facility]. He has seen our group at [facility] as an outpatient.He was last seen [...] Intake/Output Summary (Last 24 hours) at 05/28/2022 0938 Last data filed at 05/27/20221999 Gross per [...] neurology appointment with Dr. Victoria in in [place] on 06/21/2022 and will follow-up about his [...] pertinent history and exam findings with the SINGLE WIRE SAW OPERATOR I have reviewed the salguero elements of all parts of the encounter with the SINGLE WIRE SAW OPERATOR. I have seen and examined the patient. I agree with the assessment and plan and status of the problem list as documented. Uriel Grier MD Nephrology Attending Physician [facility] 05/28/3022 * KENNTEH Baltazar CNP - 05/28/2022 8:15 AM EDT Images from the original note were not included. [facility] [employer] Progress Note Date: 05/28/2022 Patient name: Elias [...] Summary: The study was performed by the Laundromat Worker, Cardiac Fellow, and the Certified Teacher Assistant in the Tube Buffer without complications. Consent was obtained from the [...] Nifedipine. No TYRON/ARB d/t CKD Will follow [facility] [employer] [facility]. [phone] * Avelino Kent DO - 05/27/2022 12:31 PM EDT Images from the original note were not included. [facility] Office: [phone] Sony Ryamond DO, Brodie Campos DO, Skip Diggs DO, [...] Stewart CNP, Jennifer Magaña, UMESH, Patricia Harrington, SINGLE WIRE SAW OPERATOR, Pauline Charles, SINGLE WIRE SAW OPERATOR, Kelli Sarah, SINGLE WIRE SAW OPERATOR, Elizabeth Cummings, SINGLE WIRE SAW OPERATOR, Karlie Kenney, SINGLE WIRE SAW OPERATOR, Ben Cesar, PA-C, Sherron Ngo, REGISTER OF DEEDS, Nyasia Lea, SINGLE WIRE SAW OPERATOR, Ivonne Alicea, SINGLE WIRE SAW OPERATOR [facility] IN-PATIENT SERVICE [facility] Progress Note 05/27/2022 12:31 PM Name: Elias Walker Acct: [id number] Room: IP Day: 4 Admit Date: 05/23/2022 12:00 PM PCP: KENNETH Taylor CNP Code Status: Full Code Subjective: C/C: Chief Complaint Patient presents with Chest Pain No longer has chest pain, presented to [facility] with chest pain Polydipsia Interval History [...] 04:09 AM PBEA 4 09/06/2021 04:41 AM [id number] 98 09/06/2021 04:41 AM FIO2 40.0 09/06/2021 [...] * (Principal) NSTEMI (non-ST elevated myocardial infarction) ([facility]) 05/23/2022 Yes Hypertensive crisis 05/23/2022 Yes OZZIE (acute kidney injury) ([facility]) 05/24/2022 Yes Morbid obesity ([facility]) 05/24/2022 Yes Anxiety 05/23/2022 Yes Allergic rhinitis 05/23/2022 Yes HHNC (hyperglycemic hyperosmolar nonketotic coma) ([facility]) 05/23/2022 Yes Hypertension, essential 05/24/2022 Yes Overview Signed 09/28/2021 1:05 PM by Martin Serrano MD Blood pressures running in the 140-150 systolic range 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 Appreciate cardiology and cardiothoracic surgery recommendations. CKD with improving creatinine. Appreciate nephrology recommendations. Continue gentle IV hydration status post heart catheterization. Continue to monitor BUN and creatinine Diabetes hba1c 10.1 lantus, ISS, consult to diabetes education Depression. Prozac 10 mg Continue current therapy, CABG next week Avelnio Kent DO 05/27/2022 12:31 PM * Khanh [...] insulins in past also. He trained at [facility] and has ability to read food [...] up HCP appointments- stated Jose Khanna, DIRECTOR PRODUCT 05/26/22 rs reinforced _x__ Medications - Insulin [...] / Plate method and grocery list from www.[employer]abetesP[employer] Kristine.org _x__ Handout - How to Check Your Blood Sugar from www.DiabetesHealth Kristine.org _x__ Handout - Be safe with [place] teaching sheet - / www.DiabetesScan.org _x__ Handout - How to Use an Insulin Pen - handout with QR code - [employer] Current as of [id number] _x__ Emergency Insert [...] with bedside RN RECOMMENDATIONS INPATIENT PLAN: _x__ Software Lead Consult this admission for education on CHO [...] -up education at outpatient diabetes education at [facility]. An ordered is needed for [...] 10:41 AM EDT SPIRITUAL CARE DEPARTMENT - [facility] PROGRESS NOTE Shift date: 05/27/2022 Shift day: Monday Shift # 1 Room # Name: Elias Walker Samaritan: Non-confucianism Referral: Routine Visit Admit Date & Time: 05/23/2022 12:00 PM Assessment: Elias Walker is a 36 y.o. male in the hospital because of chest pain and polydipsia. Upon entering the room commercial insurance underwriter observes the patient sitting up in [...] as things sink in for them. Intervention: Voice Writing Reporter introduced self and title as general clerk Voice Writing Reporter offered space for the patient to express feelings, needs, and concerns and provided a ministry presence. The general clerk provided emotional support and offer continual support, if needed by the patient. Outcome: The patient expressed gratitude and welcomes future visits. Plan: Chaplains will remain available to offer spiritual and emotional support as needed. 05/27/22 1039 Encounter Summary Service Provided For: Patient Referral/Consult From: [facility] Support System Significant other;Family members Last Encounter 05/27/22 Complexity of Encounter Low Begin Time 0943 End Time 1005 Total Time Calculated 22 min Assessment/Intervention/Outcome Assessment Anxious;Calm;Fearful;Hopeful;Tearful Intervention Active listening;Confronted/Challenged;Explored/Affirmed feelings, thoughts, concerns;Sustaining Presence/Ministry of presence Outcome Connection/Belonging;Engaged in conversation;Expressed feelings, needs, and concerns;Expressed Gratitude . [facility] Care Department [facility] [phone] * Martin Serrano MD - 05/27/2022 9:50 [...] squeezing type pain. He went to [facility]. He has seen our group at [facility] as an outpatient.he was last seen [...] neurology appointment with Dr. Victoria in in [place] on 06/21/2022 and will follow-up about his [...] Preciado MD Internal Medicine Resident PGY 3 [facility] [place] 05/27/2022, 9:54 AM This note is created [...] seen me in the office before at [facility]. He also has known history of morbid obesity type 2 diabetes and hypertension. Previously has had history of hypercalcemia from primary hyperparathyroidism calciums have been well controlled most recently. No intervention was done. He presented to the hospital with symptoms of chest pain found to have non-ST elevation NC. 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 There was a slight bump in creatinine on presentation likely related to acute NC, peaked at 2.0. Renal function now at [...] from the original note were not included. [facility] Office: [phone] Sony Raymond DO, Brodie Campos DO, Skip [...] Stewart, JOSE, Jennifer Magaña, UMESH, Patricia Harrington, SINGLE WIRE SAW OPERATOR, Pauline Charles, SINGLE WIRE SAW OPERATOR, Kelli Sarah, SINGLE WIRE SAW OPERATOR, Elizabeth Cummings, SINGLE WIRE SAW OPERATOR, Karlie Kenney CNP, Ben Cesar PA-C, Sherron Ngo, ALEJANDRO, Nyasia Lea, SINGLE WIRE SAW OPERATOR, Ivonne Alicea, SINGLE WIRE SAW OPERATOR [facility] IN-PATIENT SERVICE [facility] Progress Note 05/26/2022 3:50 PM Name: Elias Walker Acct: [id number] Room: IP Day: 3 Admit Date: 05/23/2022 12:00 PM PCP: KENNETH Taylor CNP Code Status: Full Code Subjective: C/C: Chief Complaint Patient presents with Chest Pain No longer has chest pain, presented to [facility] with chest pain Polydipsia Interval History [...] 04:09 AM PBEA 4 09/06/2021 04:41 AM [id number] 98 09/06/2021 04:41 AM FIO2 40.0 09/06/2021 [...] * (Principal) NSTEMI (non-ST elevated myocardial infarction) ([facility]) 05/23/2022 Yes Hypertensive crisis 05/23/2022 Yes OZZIE (acute kidney injury) ([facility]) 05/24/2022 Yes Morbid obesity ([facility]) 05/24/2022 Yes Anxiety 05/23/2022 Yes Allergic rhinitis 05/23/2022 Yes HHNC (hyperglycemic hyperosmolar nonketotic coma) ([facility]) 05/23/2022 Yes Hypertension, essential 05/24/2022 [...] PM EDT Patient received post cath to [facility] room 15. Assessment obtained. Post cath pathway [...] and right groin hair clipped with commercial insurance underwriter and BAUTISTA Xiao present. No family [...] insulins in past also. He trained at [facility] and has ability to read food [...] up HCP appointments- stated Jose Khanna, DIRECTOR PRODUCT 05/26/22 rs reinforced _x__ Medications - Insulin [...] [email or web address] _x__ Handout - Be safe with [place] teaching sheet - / www.DiabetesScan.org _x__ Handout - How to Use an Insulin Pen - handout with QR code - [employer] Current as of [id number] _x__ Emergency Insert sheet for your Vehicle - ADA Diabetes Emergencies _x__ Diabetes ID card - ADA Low and High Blood Sugar and treatments _x__ [facility] Diabetes Education brochure/ contact card Patient needs reinforcement. understanding of survival skills education, - discussed current insulin plans lantus at 30 units BID and pre meal correction on scale, patient did self adm insulin today with bedside RN RECOMMENDATIONS INPATIENT PLAN: _x__ Software Lead Consult this admission for education on CHO [...] -up education at outpatient diabetes education at [facility]. An ordered is needed for [...] squeezing type pain. He went to [facility]. He has seen our group at [facility] as an outpatient.he was last seen [...] neurology appointment with Dr. Victoria in in [place] on 06/21/2022 and will follow-up about his [...] Echeverria MD, MPH, PGY-2 Internal Medicine Resident [facility] [place], [place] Attending Physician Statement I have discussed the care of this patient, including pertinent history and exam findings, with the Resident/SINGLE WIRE SAW OPERATOR. I have reviewed and edited the salguero elements of all parts of the encounter with the Resident/SINGLE WIRE SAW OPERATOR. I agree with the assessment, plan and orders as documented by the Resident/SINGLE WIRE SAW OPERATOR. Talib Saldaña MD [facility] This note is created with the assistance of a speech-recognition program. While intending to generate a document that actually reflects the content of the visit, no guarantees can be provided that every mistake has been identified and corrected by editing. * Taryn Garcia RN - 05/26/2022 10:34 AM EDT Voice Writing Reporter speaks with JOSE Chapman for cardiology. Patient is cleared for cardiac cath and will be going down between 1230/1300. Voice Writing Reporter informs patient. * KENNETH Baltazar CNP - 05/26/2022 9:32 AM EDT Images from the original note were not included. [facility] [employer] Progress Note Date: 05/26/2022 Patient name: Elias Walker Date of admission: 05/23/2022 12:00 PM Date of : 1985 PCP: Jose J Khanna, DIRECTOR PRODUCT - SINGLE WIRE SAW OPERATOR Reason for Admission: NSTEMI (non-ST elevated myocardial infarction) ([facility]) [I21.4] Subjective: Clinical Changes /Abnormalities: [...] Summary: The study was performed by the Laundromat Worker, Cardiac Fellow, and the Certified Teacher Assistant in the Tube Buffer without complications. Consent was obtained from the [...] III (HCC) NSTEMI (non-ST elevated myocardial infarction) ([facility]) Hypertensive crisis Morbid obesity (HCC) [...] AM. Consider Hydralazine if remains elevated [facility] [employer] [facility]. [phone] * Taryn Garcai RN - 05/26/2022 8:00 AM EDT Voice Writing Reporter pulls patient's insulin into syringe and has [...] 1 x 30 mg dose. * Yanelis Grijalva MD - 05/25/2022 2:35 PM EDT Images from the original note were not included. [facility] Office: [phone] Sony Raymond DO, Brodie Campos DO, Skip Diggs DO, Rubén Swain DO, Lee Ann Saladña MD, Love Cortez MD, Sultana Harley MD, [...] Gaines MD, Loco Wilks MD, Mayra Chicas, SINGLE WIRE SAW OPERATOR, Riri Serna, SINGLE WIRE SAW OPERATOR, Desire Harley, SINGLE WIRE SAW OPERATOR, Ariel Stewart, SINGLE WIRE SAW OPERATOR, Jennifer Magaña, DNP, Patricia Harrington, SINGLE WIRE SAW OPERATOR, Pauline Charles, SINGLE WIRE SAW OPERATOR, Kelli Sarah, SINGLE WIRE SAW OPERATOR, Elizabeth Cummings, SINGLE WIRE SAW OPERATOR, Karlie Kenney, SINGLE WIRE SAW OPERATOR, WILL Carter-C, Sherron Ngo, REGISTER OF DEEDS, Nyasia Lea, SINGLE WIRE SAW OPERATOR, Ivonne Alicea, SINGLE WIRE SAW OPERATOR [facility] IN-PATIENT SERVICE [facility] Progress Note 05/25/2022 2:35 PM Name: Elias Walker Acct: [id number] [facility] Day: 2 Admit Date: 05/23/2022 12:00 PM PCP: KENNETH Taylor CNP Code Status: Full Code Subjective: C/C: Chief Complaint Patient presents with Chest Pain No longer has chest pain, presented to [facility] with chest pain Polydipsia Interval History [...] 04:09 AM PBEA 4 09/06/2021 04:41 AM [id number] 98 09/06/2021 04:41 AM FIO2 40.0 09/06/2021 [...] * (Principal) NSTEMI (non-ST elevated myocardial infarction) ([facility]) 05/23/2022 Yes Hypertensive crisis 05/23/2022 Yes OZZIE (acute kidney injury) ([facility]) 05/24/2022 Yes Morbid obesity ([facility]) 05/24/2022 Yes Anxiety 05/23/2022 Yes Allergic rhinitis 05/23/2022 Yes HHNC (hyperglycemic hyperosmolar nonketotic coma) ([facility]) 05/23/2022 Yes Hypertension, essential 05/24/2022 [...] neurology appointment with Dr. Victoria in in [place] on 06/21/2022 and will follow-up about his renal cysts there. BMP in AM. Will follow. Please do not hesitate to call with questions. Talib Saldaña MD [facility] This note is created with the assistance of a speech-recognition program. While intending to generate a document that actually reflects the content of the visit, no guarantees can be provided that every mistake has been identified and corrected by editing. * Emilia Haines, KENNETH - SINGLE WIRE SAW OPERATOR - 05/25/2022 12:32 PM EDT Images from the original note were not included. [facility] [employer] [employer] [facility] Progress Note Date: 05/25/2022 Patient name: Elias Walker Date of admission: 05/23/2022 12:00 PM Date of : 1985 PCP: Jose Khanna, KENNETH - SINGLE WIRE SAW OPERATOR Reason for Admission: NSTEMI (non-ST elevated myocardial [...] Summary: The study was performed by the Laundromat Worker, Cardiac Fellow, and the Certified Teacher Assistant in the Tube Buffer without complications. Consent was obtained from the [...] to Streptococcus species without acute organ dysfunction ([facility]) Staphylococcus aureus pneumonia ([facility]) Delirium Cerebral septic emboli (HCC) OZZIE (acute kidney injury) ([facility]) Hypercalcemia Cerebral embolism Cerebrovascular accident (CVA) ([facility]) Septicemia (HCC) Dilated cardiomyopathy (HCC) Hypertension, essential Persistent proteinuria CKD (chronic kidney disease), stage III ([facility]) NSTEMI (non-ST elevated myocardial infarction) ([facility]) Hypertensive crisis Morbid obesity ([facility]) Anxiety Allergic rhinitis HHNC (hyperglycemic [...] toAKI. Rest of care per primary. [facility] [employer] [employer] [facility]. [phone] * Taryn Garcia RN - 05/25/2022 12:02 PM EDT Patient notifies commercial insurance underwriter that he will be seeing Dr. Victoria- urology in [place], [place] on 06/21/2022. * Юлия Block - 05/25/2022 10:24 AM EDT Echo completed in the Echo Lab. Definity administered by RN (2mL of Diluted Bolus) * Taryn Garcia RN - 05/25/2022 7:16 AM EDT Voice Writing Reporter notifies nephrology for cardiac clearance. Awaiting further [...] original note were not included. Occupational Therapy [facility] Occupational Therapy Not Seen Note DATE: [...] Echeverria MD, MPH, PGY-2 Internal Medicine Resident [facility], [place], [place] Attending Physician Statement I have discussed the care of this patient, including pertinent history and exam findings, with the Resident/SINGLE WIRE SAW OPERATOR. I have reviewed and edited the salguero elements of all parts of the encounter with the Resident/SINGLE WIRE SAW OPERATOR. I agree with the assessment, plan and orders as documented by the Resident/SINGLE WIRE SAW OPERATOR. Talib Saldaña MD [facility] This note is created with the assistance of a speech-recognition program. While intending to generate a document that actually reflects the content of the visit, no guarantees can be provided that every mistake has been identified and corrected by editing. * Alessio Bhat MD - 05/24/2022 9:47 AM EDT Images from the original note were not included. [facility] Office: [phone] Sony Raymond DO, Brodie Campos DO, Skip [...] Chicas, JOSE, Riri Serna CNP, Desire Harley, SINGLE WIRE SAW OPERATOR, Ariel Stewart, SINGLE WIRE SAW OPERATOR, Jennifer Magaña, UMESH, Patricia Harrington, SINGLE WIRE SAW OPERATOR, Pauline Charles, SINGLE WIRE SAW OPERATOR, Kelli Sarah, SINGLE WIRE SAW OPERATOR, Elizabeth Cummings, SINGLE WIRE SAW OPERATOR, Karlie Kenney, SINGLE WIRE SAW OPERATOR, ALESSANDRA CarterC, Sherron Ngo, REGISTER OF DEEDS, Nyasia Lea, SINGLE WIRE SAW OPERATOR, Ivonne Alicea, SINGLE WIRE SAW OPERATOR [facility] IN-PATIENT SERVICE [facility] Progress Note 05/24/2022 9:47 AM Name: Elias Walker Acct: [id number] Room: [facility]/0407-01 Day: 1 Admit Date: 05/23/2022 12:00 PM PCP: KENNETH Taylor CNP Code Status: Full Code Subjective: C/C: Chief Complaint Patient presents with Chest Pain No longer has chest pain, presented to [facility] with chest pain Polydipsia Interval History [...] 04:09 AM PBEA 4 09/06/2021 04:41 AM [id number] 98 09/06/2021 04:41 AM FIO2 40.0 09/06/2021 [...] * (Principal) NSTEMI (non-ST elevated myocardial infarction) ([facility]) 05/23/2022 Yes Hypertensive crisis 05/23/2022 Yes Acute kidney injury superimposed on CKD ([facility]) 05/23/2022 Yes Class 3 severe obesity due to excess calories with serious comorbidity and body mass index (BMI) of45.0 to 49.9 in adult ([facility]) 05/23/2022 Yes Anxiety 05/23/2022 Yes Allergic rhinitis 05/23/2022 Yes HHNC (hyperglycemic hyperosmolar nonketotic coma) ([facility]) 05/23/2022 Yes Primary hypertension 05/23/2022 [...] insulins in past also. He trained at [facility] and has ability to read food [...] [email or web address] _x__ Handout - Be safe with [place] teaching sheet - / [email or web address] _x__ Handout - How to Use an Insulin Pen - handout with QR code - Health nielsen Current as of [id number] _x__ Emergency Insert sheet for your Vehicle - ADA Diabetes Emergencies _x__ Diabetes ID card - ADA Low and High Blood Sugar and treatments _x__ [facility] Diabetes Education brochure/ contact card Patient needs reinforcement. understanding of survival skills education, once plan for discharge isestablished RECOMMENDATIONS INPATIENT PLAN: _x__ Software Lead Consult this admission for education on CHO [...] -up education at outpatient diabetes education at [facility]. An ordered is needed for [...] RN - 05/23/2022 8:45 PM EDT Notified production team leader HEAD MACHINIST of patients blood sugar check per order documented in this [facility] Work Phone: 1(784) 502-184804-03-2023 Hospital course Narrative* KENNETH Ohara CNP - 06/06/2022 9:58 AM EDT Cardiothoracic Surgery IN-PATIENT SERVICE [facility] Discharge Summary Patient ID: Elias Walker : 1985 ACCOUNT: [id number] Patient's PCP: KENNETH Taylor CNP Admit Date: [...] Allergic rhinitis HHNC (hyperglycemic hyperosmolar nonketotic coma) ([facility]) Essential hypertension History of primary [...] Troponin trending upward. He was transferred to [facility] for further workup and possible intervention. Cardiac [...] IP CONSULT TO CARDIOLOGY IP CONSULT TO TRAM INSPECTOR IP CONSULT TO TRAM INSPECTOR IP CONSULT TO NEPHROLOGY IP CONSULT TO TRAM INSPECTOR IP CONSULT TO CARDIOTHORACIC SURGERY IP CONSULT TO TRAM INSPECTOR IP CONSULT TO SPIRITUAL SERVICES IP CONSULT TO IV TEAM IP CONSULT TO CASE MANAGEMENT IP CONSULT TO SPIRITUAL SERVICES IP CONSULT TO CARDIOLOGY IP CONSULT TO CARDIAC REHAB IP CONSULT TO TRAM INSPECTOR IP CONSULT TO CARDIOLOGY The patient was seen and examined on day of discharge and this discharge summary is in conjunction with any daily progress note from day of discharge. Discharge plan: Disposition: Home Physician Follow Up: [facility] EDUCATION [address] [facility] [address] [facility] [phone] Call Follow up education on diabetes self management, As needed Ariel Purdy MD [address] [facility] [address] [facility] [address] Call in 2 week(s) Requiring Further Evaluation/Follow [...] Your Medications These medications were sent to [facility] [place], [place] - [address] [facility] - P [phone] - F [phone] [facility] [place] [address] amiodarone 200 MG tablet aspirin 81 MG [...] 06/06/2022 9:58 AM documented in this encounterBON [facility]AL[facility]urveypal Phone: [phone]) [phone] Hospital Discharge instructions* Discharge Instructions* KENNETH Ohara [...] If constipation persists, you may use any digb-wmw-[id number] laxative, suppository or enema. DRIVING AND RIDING [...] ? Sutures may be removed by any health-caregiver assisted living after 7 days from THERESA/chest tube removal. [...] you will be able to watch them. [email or web address] CALL YOUR SURGEON IF YOU HAVE: ? [...] after discharge from the hospital. Office Location: [address] [place] [address] [address] [place] [address] ? You may call the office to [...] have a follow up appointment with your Laundromat Worker 2-3 weeks from discharge, please call and [...] day to get your calls to the social media executive Physician, but we are often in surgery and it takes us awhile to get back to you. * Attachments The following attachments cannot be sent through Care Everywhere. * Diabetes: Type 2 (South Korean) * insulin glargine ([place]) * Diabetes: Insulin Pens: General Info ([place] Korean) * Diabetes: Counting Carbohydrates: Video ([place]) * Diabetes: Carb Counting and Eating Well: General Info ([place] Korean) documented in this [facility]IN[facility] [employer] Phone: [phone]) [phone] Hospital Discharge instructions* Discharge Instructions* Taryn Fam RN - 09/28/2021 2:40 PM EDT Verbally reviewed discharge instructions for care and follow up. Previous print out of these instructions were given with prior treatment.Patient verbalized understanding of these instructions. [facility] [employer] Phone: [phone]) 300-292607-22-2022 Hospital Discharge instructions* Discharge Instructions* Jocelyn Miranda RN - 09/24/2021 4:26 PM EDT Outpatient Discharge Instructions for IV Therapy [address] [place] [address] You are advised to carry out the [...] THE NEAREST EMERGENCY ROOM. documented [facility] [employer] Phone: [phone]) 431-700507-21-2022 Hospital Discharge instructions* Discharge Instructions* Rody Fowler RN - 09/23/2021 4:19 PM EDT Verbally reviewed discharge instructions for care and follow up. Previous print out of these instructions were given with prior treatment.Patient verbalized understanding of these instructions. [facility] Phone: [phone]) 888-295307-20-2022 Hospital Discharge instructions* Discharge Instructions* Rody Fowler RN - 09/22/2021 4:07 PM EDT Verbally reviewed discharge instructions for care and follow up. Previous print out of these instructions were given with prior treatment.Patient verbalized understanding of these instructions. documented in [facility] Phone: [phone]) 530-631107-19-2022 Hospital Discharge instructions* Discharge Instructions* Mayra Caceres RN - 09/21/2021 4:26 PM EDT Verbally reviewed discharge instructions for care and follow up. Previous print out of these instructions were given with prior treatment.Patient verbalized understanding of these instructions. [facility] Phone: [phone] Hospital Discharge instructions* Discharge Instructions* Taryn Fam RN - 09/17/2021 5:17 PM EDT Verbally reviewed discharge instructions for care and follow up. Previous print out of these instructions were given with prior treatment.Patient verbalized understanding of these instructions. documented in [facility] Phone: [phone]) 197-959607-13-2022 Hospital Discharge instructions* Instructions* Taryn Fam RN - 09/15/2021 Verbally reviewed discharge instructions for care and follow up. Previous print out of these instructions were given with prior treatment.Patient verbalized understanding of these instructions. documented in [facility]Children[facility] Phone: [phone]) [phone] Hospital Discharge instructions* Instructions* Taryn Fam RN - 09/14/2021 Outpatient Discharge Instructions for IV Therapy [address] [place] [address] You are advised to carry out the [...] THE NEAREST EMERGENCY ROOM. documented in this [facility]Children[facility] Phone: [phone]) 233-180107-10-2022 History of Present illness Narrative* Jared Hernandez MD - 09/12/2021 11:39 AM EDT Images [...] phenomena Patient will be going to the [facility] during the week and may have to return to [facility] infusion center during the weekends, if ER at [facility] can not provide the treatment during the weekends Clinically the patient continues to make good recovery as his mentation continues to improve daily. Plans are in progress for potential discharge but insurance coverage remains the issue. Office f/up in [address] Henao for infection. Please call [phone] for appointment Infection Control Recommendations: [place] precautions Discharge Planning: Estimated Length of IV [...] IV antibiotics through the Infusion Center at [facility]. He may need an alternative site during the weekends, such as IV infusion center, if [facility] can not provide that service during the weekends. Office f/up in [address] Henao for infection. Please call [phone] for appointment The patient was seen by [...] were no complications encountered. Cardiovascular Diseases Fellow [facility] ONE XRAY VIEW OF THE CHEST 09/02/2021 [...] effusion and cardiomegaly. Cultures: Culture, Blood 1 [[id number]] Collected: 09/08/21 1000 Order Status: Completed Specimen: Blood Updated: 09/10/21 1041 Specimen Description .BLOOD Special Requests L HAND 10ML Culture NO GROWTH 2 DAYS Culture, Blood 1 [[id number]] Collected: 09/08/21 1004 Order Status: Completed Specimen: Blood Updated: 09/10/21 1040 Specimen Description .BLOOD Special Requests R HAND 10ML Culture NO GROWTH 2 DAYS Culture, Blood 1 [[id number]] Collected: 08/31/21 1515 Order Status: Completed Specimen: Blood Updated: 09/05/21 1553 Specimen Description .BLOOD Culture NO GROWTH 5 DAYS Culture, Blood 1 [[id number]] Collected: 08/31/21 1519 Order Status: Completed Specimen: Blood Updated: 09/05/21 1531 Specimen Description .BLOOD Culture NO GROWTH 5 DAYS Culture, Body Fluid [[id number]] (Abnormal) Collected: 08/29/21 0342 Order Status: Completed Specimen: Body Fluid Updated: 09/04/21 1436 Specimen Description .FLUID .PERICARDIAL FLUID Direct Exam RARE NEUTROPHILS Abnormal NO BACTERIA SEEN Gram stain made from cytocentrifuged specimen. Organisms and cells will be concentrated. Culture NO GROWTH 6 DAYS Culture, Blood 1 [[id number]] Collected: 08/30/21 0953 Order Status: Completed Specimen: Blood Updated: 09/04/21 1024 Specimen Description .BLOOD Special Requests 10ML R ARM Culture NO GROWTH 5 DAYS Culture, Blood 1 [[id number]] (Abnormal) Collected: 08/30/21 1001 Order Status: Completed [...] [place] at 0425 on 08/31/21 Culture, Respiratory [[id number]] (Abnormal) Collected: 08/30/21 2341 Order Status: Completed [...] Resulted: 09/02/21 08:28 MRSA DNA Probe, Nasal [[id number]] (Abnormal) Collected: 08/29/21 0813 Order Status: Completed [...] (Restricted: peds pts or suitable admitted adults) [[id number]] (Abnormal) Collected: 08/30/21 1118 Order Status: Completed Specimen: Nasopharyngeal Swab Updated: [...] This was new information to this commercial insurance underwriter. Reviewed DC wishes with patient. Juan [...] coverage remains the issue. Infection Control Recommendations: [place] precautions Discharge Planning: Estimated Length of IV [...] were no complications encountered. Cardiovascular Diseases Fellow [facility] ONE XRAY VIEW OF THE CHEST 09/02/2021 [...] effusion and cardiomegaly. Cultures: Culture, Blood 1 [[id number]] Collected: 09/08/21 1000 Order Status: Completed Specimen: Blood Updated: 09/10/21 1041 Specimen Description .BLOOD Special Requests L HAND 10ML Culture NO GROWTH 2 DAYS Culture, Blood 1 [[id number]] Collected: 09/08/21 1004 Order Status: Completed Specimen: Blood Updated: 09/10/21 1040 Specimen Description .BLOOD Special Requests R HAND 10ML Culture NO GROWTH 2 DAYS Culture, Blood 1 [[id number]] Collected: 08/31/21 1515 Order Status: Completed Specimen: Blood Updated: 09/05/21 1553 Specimen Description .BLOOD Culture NO GROWTH 5 DAYS Culture, Blood 1 [[id number]] Collected: 08/31/21 1519 Order Status: Completed Specimen: Blood Updated: 09/05/21 1531 Specimen Description .BLOOD Culture NO GROWTH 5 DAYS Culture, Body Fluid [[id number]] (Abnormal) Collected: 08/29/21 0342 Order Status: Completed Specimen: Body Fluid Updated: 09/04/21 1436 Specimen Description .FLUID .PERICARDIAL FLUID Direct Exam RARE NEUTROPHILS Abnormal NO BACTERIA SEEN Gram stain made from cytocentrifuged specimen. Organisms and cells will be concentrated. Culture NO GROWTH 6 DAYS Culture, Blood 1 [[id number]] Collected: 08/30/21 0953 Order Status: Completed Specimen: Blood Updated: 09/04/21 1024 Specimen Description .BLOOD Special Requests 10ML R ARM Culture NO GROWTH 5 DAYS Culture, Blood 1 [[id number]] (Abnormal) Collected: 08/30/21 1001 Order Status: Completed [...] [place] at 0425 on 08/31/21 Culture, Respiratory [[id number]] (Abnormal) Collected: 08/30/21 2341 Order Status: Completed [...] Resulted: 09/02/21 08:28 MRSA DNA Probe, Nasal [[id number]] (Abnormal) Collected: 08/29/21 0813 Order Status: Completed [...] (Restricted: peds pts or suitable admitted adults) [[id number]] (Abnormal) Collected: 08/30/21 1115 Order Status: Completed [...] day [facility] Jared Hernandez MD [employer] OFFICE: Thank you for allowing us to [...] Outpatient evaluation by endocrinology * Alejandra Seo, SOCIAL ORGANIZATION PROFESSOR - 09/11/2021 11:28 AM EDT Physical Therapy Facility/Department: [address] Physical Therapy Progress Note Name: Elias [...] Ambulation Assistance: Independent Transfer Assistance: Independent Active Digital Art Director: Yes Mode of Transportation: SUV 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 [facility] Office: [phone] Sony Raymond DO, Brodie Campos DO, Skip [...] Gaines MD, Yan Feliciano MD, Mayra Chicas, SINGLE WIRE SAW OPERATOR, Karlie Kenney, SINGLE WIRE SAW OPERATOR, Omkar Colunga,SINGLE WIRE SAW OPERATOR, Riri Serna, SINGLE WIRE SAW OPERATOR, Desire Harley, SINGLE WIRE SAW OPERATOR, Ariel Stewart, SINGLE WIRE SAW OPERATOR, Ben Cesar, PA-C, Jennifer Magaña, DNP, Patricia Harrington, SINGLE WIRE SAW OPERATOR, Pauline Charles, SINGLE WIRE SAW OPERATOR, Kelli Sarah, SINGLE WIRE SAW OPERATOR, Sherron Ngo, REGISTER OF DEEDS, Kellen Mabry, DNP, Nyasia Lea, SINGLE WIRE SAW OPERATOR, Elizabeth Cummings, SINGLE WIRE SAW OPERATOR, Kellie Mora, SINGLE WIRE SAW OPERATOR [facility] IN-PATIENT SERVICE [facility] Progress Note 09/11/2021 9:09 AM Name: Elias Walker Acct: [id number] Room: [facility]041-[facility] Day: 13 Admit Date: 08/29/2021 1:02 AM PCP: No primary care provider on file. Code Status: Full Code Subjective: C/C: Chief Complaint Patient presents with Shortness of Breath [facility], cardiac tamponade Chest Pain Interval History Status: [...] No results for input(s): PROT, LABALBU, LABA1C, R6VLAYG, G1QHXSR, FT4, TSH, AST, ALT, LDH, GGT, ALKPHOS, LABGGT, BILITOT, BILIDIR, AMMONIA, AMYLASE, LIPASE, LACTATE, CHOL, HDL, LDLCHOLESTEROL, CHOLHDLRATIO, TRIG, VLDL, ESN68YG, PHENYTOIN, PHENYF, URICACID, POCGLU in the last 72 hours. ABG: Lab Results Component Value Date/Time POCPH 7.392 09/06/2021 04:41 AM POCPCO2 48.2 09/06/2021 04:41 AM POCPO2 98.0 09/06/2021 04:41 AM POCHCO3 29.3 09/06/2021 04:41 AM NBEA 2 09/03/2021 04:09 AM PBEA 4 09/06/2021 04:41 AM [id number] 98 09/06/2021 04:41 AM FIO2 40.0 09/06/2021 [...] Cerebral embolism 09/08/2021 Yes Cerebrovascular accident (CVA) ([facility]) 09/10/2021 Yes Plan: # Embolic [...] coverage remains the issue. Infection Control Recommendations: [place] precautions Discharge Planning: Estimated Length of IV [...] were no complications encountered. Cardiovascular Diseases Fellow [facility] ONE XRAY VIEW OF THE CHEST 09/02/2021 [...] effusion and cardiomegaly. Cultures: Culture, Blood 1 [[id number]] Collected: 09/08/21 1000 Order Status: Completed Specimen: Blood Updated: 09/10/21 1041 Specimen Description .BLOOD Special Requests L HAND 10ML Culture NO GROWTH 2 DAYS Culture, Blood 1 [[id number]] Collected: 09/08/21 1004 Order Status: Completed Specimen: Blood Updated: 09/10/21 1040 Specimen Description .BLOOD Special Requests R HAND 10ML Culture NO GROWTH 2 DAYS Culture, Blood 1 [[id number]] Collected: 08/31/21 1515 Order Status: Completed Specimen: Blood Updated: 09/05/21 1553 Specimen Description .BLOOD Culture NO GROWTH 5 DAYS Culture, Blood 1 [[id number]] Collected: 08/31/21 1519 Order Status: Completed Specimen: Blood Updated: 09/05/21 1531 Specimen Description .BLOOD Culture NO GROWTH 5 DAYS Culture, Body Fluid [[id number]] (Abnormal) Collected: 08/29/21 0342 Order Status: Completed Specimen: Body Fluid Updated: 09/04/21 1436 Specimen Description .FLUID .PERICARDIAL FLUID Direct Exam RARE NEUTROPHILS Abnormal NO BACTERIA SEEN Gram stain made from cytocentrifuged specimen. Organisms and cells will be concentrated. Culture NO GROWTH 6 DAYS Culture, Blood 1 [[id number]] Collected: 08/30/21 0953 Order Status: Completed Specimen: Blood Updated: 09/04/21 1024 Specimen Description .BLOOD Special Requests 10ML R ARM Culture NO GROWTH 5 DAYS Culture, Blood 1 [[id number]] (Abnormal) Collected: 08/30/21 1001 Order Status: Completed [...] [place] at 0425 on 08/31/21 Culture, Respiratory [[id number]] (Abnormal) Collected: 08/30/21 2341 Order Status: Completed [...] Resulted: 09/02/21 08:28 MRSA DNA Probe, Nasal [[id number]] (Abnormal) Collected: 08/29/21 0813 Order Status: Completed [...] (Restricted: peds pts or suitable admitted adults) [[id number]] (Abnormal) Collected: 08/30/21 1115 Order Status: Completed [...] [facility] Ashish Henao MD [employer] OFFICE: Thank you for allowing us [...] extrapolated by contextual diversion. 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 [...] Hand Dominance Hand Dominance: Right AM-PAC Score AM-[facility] Inpatient Daily Activity Raw Score: 19 (09/10/21 1353) AM-[facility] Inpatient ADL T-Scale Score : 40.22 (09/10/21 [...] loss Fluid Accumulation: No significant fluid accumulation Slip Caster Strength: Not Performed Nutrition Assessment: Pt reports [...] Anthropometric Measures: Height: 5' 4 (162.6 cm) [place] Body Weight (IBW): 130 lbs (59 kg) [...] Used for Energy Requirements: Current Energy (kcal/day): 0311-6721 kcals/day Weight Used for Protein Requirements: [place] Protein (g/day): 120 g/day Method Used for [...] at this time Amber Powers RD Contact: [phone] * Ben Cesar PA-C - 09/10/2021 11:49 AM EDT Images from the original note were not included. [facility] Office: [phone] Sony Raymond DO, Brodie Campos DO, Skip [...] Gaines MD, Yan Feliciano MD, Mayra Chicas, SINGLE WIRE SAW OPERATOR, Karlie Kenney SINGLE WIRE SAW OPERATOR, Omkar Colunga,SINGLE WIRE SAW OPERATOR, Riri Serna, SINGLE WIRE SAW OPERATOR, Desire Harley, SINGLE WIRE SAW OPERATOR, Ariel Stewart, SINGLE WIRE SAW OPERATOR, Ben Cesar, PA-C, Jennifer Magaña, DNP, Patricia Harrington, SINGLE WIRE SAW OPERATOR, Pauline Charles, SINGLE WIRE SAW OPERATOR, Kelli Sarah, SINGLE WIRE SAW OPERATOR, Sherron Ngo, [facility], Kellen Mabry, DNP, Nyasia Lea, SINGLE WIRE SAW OPERATOR, Elizabeth Cummings, SINGLE WIRE SAW OPERATOR, Kellie Mora, SINGLE WIRE SAW OPERATOR [facility] IN-PATIENT SERVICE [facility] Progress Note 09/10/2021 11:49 AM Name: Elias Walker Acct: [id number] Room: [address] [place] [address] Day: 12 Admit Date: 08/29/2021 1:02 AM PCP: No primary care provider on file. Code Status: Full Code Subjective: C/C: Chief Complaint Patient presents with Shortness of Breath [facility], cardiac tamponade Chest Pain Interval History Status: [...] 04:09 AM PBEA 4 09/06/2021 04:41 AM [id number] 98 09/06/2021 04:41 AM FIO2 40.0 09/06/2021 [...] Cesar PA-C 09/10/2021 11:49 AM * Artur Quiñones MD - 09/10/2021 9:56 AM EDT [facility] IN-PATIENT SERVICE NEUROLOGY PROGRESS NOTE [...] male who presents with [facility]ness [facility] Bre[facility] and Chest Pain . [...] on this case tomorrow Artur Quiñones MD [facility] Neurology * Talib Saldaña MD - [...] pertinent history and exam findings, with the Resident/SINGLE WIRE SAW OPERATOR. I have reviewed and edited the salguero elements of all parts of the encounter with the Resident/SINGLE WIRE SAW OPERATOR. I agree with the assessment, plan and orders as documented by the Resident/SINGLE WIRE SAW OPERATOR. Talib Saldaña MD [facility] This note is created with the assistance [...] with pericardial effusion and was transferred to [facility]. Has had difficulties with hypertension. Has OZZIE. [...] to ensure the accuracy of this automated color drum worker, some errors in color drum worker may have occurred. * Lizzie Xiong PTA - 09/09/2021 3:23 PM EDT Physical Therapy Facility/Department: [address] [place] Physical Therapy Daily treatment note [...] Patient : Elias Walker; 36 y.o. Location: [facility]8/0418-02 Attending: Solange Mercer MD Admit Date: 08/29/2021 [...] pertinent history and exam findings, with the Resident/SINGLE WIRE SAW OPERATOR. I have reviewed and edited the salguero elements of all parts of the encounter with the Resident/SINGLE WIRE SAW OPERATOR. I agree with the assessment, plan and orders as documented by the Resident/SINGLE WIRE SAW OPERATOR. Talib Saldaña MD [facility] This note is created with the assistance of a speech-recognition program. While intending to generate a document that actually reflects the content of the visit, no guarantees can be provided that every mistake has been identified and corrected by editing. * Ben Cesar PA-C - 09/09/2021 9:30 AM EDT Images from the original note were not included. [facility] Office: [phone] Sony Raymond DO, Brodie Campos DO, Skip [...] Kenney CNP, Omkar Colunga CNP, Riri Serna, SINGLE WIRE SAW OPERATOR, Desire Harley, SINGLE WIRE SAW OPERATOR, Ariel Stewart, JOSE, Ben Cesar PA-C, Jennifer Magaña, DNP, Patricia Harrington, SINGLE WIRE SAW OPERATOR, Pauline Charles, SINGLE WIRE SAW OPERATOR, Kelli Sarah, SINGLE WIRE SAW OPERATOR, Sherron Ngo, REGISTER OF DEEDS, Kellen Mabry, DNP, Nyasia Lea, SINGLE WIRE SAW OPERATOR, Elizabeth Cummings, SINGLE WIRE SAW OPERATOR, Kellie Mora, SINGLE WIRE SAW OPERATOR [facility] IN-PATIENT SERVICE [facility] Progress Note 09/09/2021 9:30 AM Name: Elias Walker Acct: [id number] Room: [facility]041-[facility] Day: 11 Admit Date: 08/29/2021 1:02 AM PCP: No primary care provider on file. Code Status: Full Code Subjective: C/C: Chief Complaint Patient presents with Shortness of Breath [facility], cardiac tamponade Chest Pain Interval History Status: [...] 04:09 AM PBEA 4 09/06/2021 04:41 AM [id number] 09/06/2021 04:41 AM FIO2 40.0 09/06/2021 [...] is verbalizing/communicating much better Infection Control Recommendations: [place] precautions Discharge Planning: Estimated Length of IV [...] were no complications encountered. Cardiovascular Diseases Fellow [facility] ONE XRAY VIEW OF THE CHEST 09/02/2021 [...] effusion and cardiomegaly. Cultures: Culture, Blood 1 [[id number]] Collected: 08/31/21 1515 Order Status: Completed Specimen: Blood Updated: 09/05/21 1553 Specimen Description .BLOOD Culture NO GROWTH 5 DAYS Culture, Blood 1 [[id number]] Collected: 08/31/21 1519 Order Status: Completed Specimen: Blood Updated: 09/05/21 1531 Specimen Description .BLOOD Culture NO GROWTH 5 DAYS Culture, Body Fluid [[id number]] (Abnormal) Collected: 08/29/21 0342 Order Status: Completed Specimen: Body Fluid Updated: 09/04/21 1436 Specimen Description .FLUID .PERICARDIAL FLUID Direct Exam RARE NEUTROPHILS Abnormal NO BACTERIA SEEN Gram stain made from cytocentrifuged specimen. Organisms and cells will be concentrated. Culture NO GROWTH 6 DAYS Culture, Blood 1 [[id number]] Collected: 08/30/21 0953 Order Status: Completed Specimen: Blood Updated: 09/04/21 1024 Specimen Description .BLOOD Special Requests 10ML R ARM Culture NO GROWTH 5 DAYS Culture, Blood 1 [[id number]] (Abnormal) Collected: 08/30/21 1001 Order Status: Completed [...] [place] at 0425 on 08/31/21 Culture, Respiratory [[id number]] (Abnormal) Collected: 08/30/21 2341 Order Status: Completed [...] Resulted: 09/02/21 08:28 MRSA DNA Probe, Nasal [[id number]] (Abnormal) Collected: 08/29/21 0813 Order Status: Completed [...] (Restricted: peds pts or suitable admitted adults) [[id number]] (Abnormal) Collected: 08/30/21 1115 Order Status: Completed [...] day [facility] Ashish Henao MD [employer] messaging OFFICE: Thank you for allowing us [...] girlfriend called up for report on patient. Voice Writing Reporter busy in another room. Patient's girlfriend told community action worker that she wants to bring pizza rolls up to the unit to be heated for patient because he does not like hospital food. warehouse receiving clerk advised patient's girlfriend to call back in the morning for this question, the request will be forwarded. * Talib Saldaña MD - 09/08/2021 3:18 PM EDT Renal Progress Note Patient : Elias Walker; 36 y.o. Location: 0418/0418-02 Attending: Solange Mercer MD Admit Date: 08/29/2021 Hospital Day: 10 Subjective: Patient is initially transferred from [facility] due to complaints of chest pain, had syncopal episode there found to be hypertensive, found to have pericardial effusion transferred to [facility] underwent pericardiocentesis with 37 cc of dark [...] mg/dl today. Calcium was improved to 10.4. [id number], potassium 3.7, chloride 102, bicarb 23, BUN [...] exposure. Talib Saldaña MD [facility] This note is created with the assistance [...] is verbalizing/communicating much better Infection Control Recommendations: [place] precautions Discharge Planning: Estimated Length of IV [...] were no complications encountered. Cardiovascular Diseases Fellow [facility] ONE XRAY VIEW OF THE CHEST 09/02/2021 [...] effusion and cardiomegaly. Cultures: Culture, Blood 1 [[id number]] Collected: 08/31/21 1515 Order Status: Completed Specimen: Blood Updated: 09/05/21 1553 Specimen Description .BLOOD Culture NO GROWTH 5 DAYS Culture, Blood 1 [[id number]] Collected: 08/31/21 1519 Order Status: Completed Specimen: Blood Updated: 09/05/21 1531 Specimen Description .BLOOD Culture NO GROWTH 5 DAYS Culture, Body Fluid [[id number]] (Abnormal) Collected: 08/29/21 0342 Order Status: Completed Specimen: Body Fluid Updated: 09/04/21 1436 Specimen Description .FLUID .PERICARDIAL FLUID Direct Exam RARE NEUTROPHILS Abnormal NO BACTERIA SEEN Gram stain made from cytocentrifuged specimen. Organisms and cells will be concentrated. Culture NO GROWTH 6 DAYS Culture, Blood 1 [[id number]] Collected: 08/30/21 0953 Order Status: Completed Specimen: Blood Updated: 09/04/21 1024 Specimen Description .BLOOD Special Requests 10ML R ARM Culture NO GROWTH 5 DAYS Culture, Blood 1 [[id number]] (Abnormal) Collected: 08/30/21 1001 Order Status: Completed [...] [place] at 0425 on 08/31/21 Culture, Respiratory [[id number]] (Abnormal) Collected: 08/30/21 2341 Order Status: Completed [...] Resulted: 09/02/21 08:28 MRSA DNA Probe, Nasal [[id number]] (Abnormal) Collected: 08/29/21 0813 Order Status: Completed [...] (Restricted: peds pts or suitable admitted adults) [[id number]] (Abnormal) Collected: 08/30/21 1115 Order Status: Completed [...] day [facility] Ashish Henao MD [employer] OFFICE: Thank you for allowing us to [...] from the original note were not included. [facility] Occupational Therapy Not Seen Note DATE: [...] to work-up the hypercalcemia Infection Control Recommendations: [place] precautions Discharge Planning: Estimated Length of IV [...] were no complications encountered. Cardiovascular Diseases Fellow [facility] ONE XRAY VIEW OF THE CHEST 09/02/2021 [...] effusion and cardiomegaly. Cultures: Culture, Blood 1 [[id number]] Collected: 08/31/21 1515 Order Status: Completed Specimen: Blood Updated: 09/05/21 1553 Specimen Description .BLOOD Culture NO GROWTH 5 DAYS Culture, Blood 1 [[id number]] Collected: 08/31/21 1519 Order Status: Completed Specimen: Blood Updated: 09/05/21 1531 Specimen Description .BLOOD Culture NO GROWTH 5 DAYS Culture, Body Fluid [[id number]] (Abnormal) Collected: 08/29/21 0342 Order Status: Completed Specimen: Body Fluid Updated: 09/04/21 1436 Specimen Description .FLUID .PERICARDIAL FLUID Direct Exam RARE NEUTROPHILS Abnormal NO BACTERIA SEEN Gram stain made from cytocentrifuged specimen. Organisms and cells will be concentrated. Culture NO GROWTH 6 DAYS Culture, Blood 1 [[id number]] Collected: 08/30/21 0953 Order Status: Completed Specimen: Blood Updated: 09/04/21 1024 Specimen Description .BLOOD Special Requests 10ML R ARM Culture NO GROWTH 5 DAYS Culture, Blood 1 [[id number]] (Abnormal) Collected: 08/30/21 1001 Order Status: Completed [...] [place] at 0425 on 08/31/21 Culture, Respiratory [[id number]] (Abnormal) Collected: 08/30/21 2341 Order Status: Completed [...] Resulted: 09/02/21 08:28 MRSA DNA Probe, Nasal [[id number]] (Abnormal) Collected: 08/29/21 0813 Order Status: Completed [...] (Restricted: peds pts or suitable admitted adults) [[id number]] (Abnormal) Collected: 08/30/21 1115 Order Status: Completed [...] day [facility] Ashish Henao MD [facility] OFFICE: Thank you for allowing us to [...] loss Fluid Accumulation: No significant fluid accumulation Slip Caster Strength: Not Performed Nutrition Assessment: Pt extubated [...] Anthropometric Measures: Height: 5' 4 (162.6 cm) [place] Body Weight (IBW): 130 lbs (59 kg) [...] Used for Energy Requirements: Current Energy (kcal/day): 3968-9444 kcals/day Weight Used for Protein Requirements: [place] Protein (g/day): 120 g/day Fluid (ml/day): Per [...] to determine Juju Mishra RD, LD Contact: [phone] * Sadie Quintanilla DO - 09/07/2021 2:36 PM EDT Critical care team - Resident sign-out to medicine service Date and time: 09/07/2021 2:36 PM Patient's name: Elias Walker Patient's account/billing number: [id number] Patient's Date of : 1985 Age: 36 [...] of asthma, ?HTN who was transferred from [facility] with chief complaints of chest pain. Patient had sharp chest pain radiating to the back and had a syncopal episode after chest pain. Patient went to [facility] for evaluation and was found to be hypertensive and discharged on metoprolol.Patient was found to be very hypertensive when he rechecked his blood pressure at home and patient went to [facility] for evaluation. On evaluation at [facility] patient was found to have pericardial effusion and was transferred to [facility] for further evaluation. At [facility] patient underwent pericardiocentesis draining 37 cc [...] DO Emergency Medicine Resident Critical Care Service [facility] 09/07/2021, 2:36 PM EDT * Linda Garnica OT - 09/07/2021 2:20 PM EDT Images from the original note were not included. [facility] Occupational Therapy Not Seen Note DATE: 09/07/2021 NAME: Elias Walker : 1985 Patient not seen this date for Occupational Therapy due to: Other: Family member present in room, polite decline stating patient fatigued; Next Scheduled Treatment: Ck 09/08 * Falguni Sherman PT - 09/07/2021 1:30 PM EDT Physical Therapy Facility/Department: [place] [address] Physical Therapy Initial Assessment Name: Elias Walker : 1985 Date of Service: 09/07/2021 Discharge Recommendations: Further therapy recommended at discharge. Chief Complaint Patient presents with Shortness of Breath [facility], cardiac tamponade Chest Pain The patient is a 36 y.o. male who presents with Shortness of Breath ([facility], cardiac tamponade) and Chest Pain . 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 underwent pericardiocentesis with 37 cc of dark [...] exposure. Talib Saldaña MD [facility] This note is created with the assistance of a speech-recognition program. While intending to generate a document that actually reflects the content of the visit, no guarantees can be provided that every mistake has been identified and corrected by editing. * Artur Quiñones MD - 09/07/2021 9:04 AM EDT [facility] IN-PATIENT SERVICE NEUROLOGY PROGRESS NOTE [...] male who presents with Shortness of Breath ([facility], cardiac tamponade) and Chest Pain . [...] physical therapy as tolerated Artur Quiñones MD [facility] Neurology * Sadie Quintanilla DO - 09/07/2021 7:05 AM EDT Critical Care Team - Daily Progress Note Date and time: 09/07/2021 7:06 AM Patient's name: Elias Walker Patient's account/billing number: [id number] Patient's Date of : 1985 Age: 36 [...] PMH of asthma who was transferred from [facility] with chief complaints of chest pain. Patient had sharp chest pain radiating to the back and had a syncopal episode after chest pain. Patient went to [facility] for evaluation and was found to be hypertensive and discharged on metoprolol.Patient was found to be very hypertensive today on rechecking blood pressure at home and patient went to [facility] for evaluation. On evaluation at [facility] patient was found to have pericardial effusion and was transferred to [facility] for further evaluation. 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 Cardiovascular Diseases Fellow [facility] ONE XRAY VIEW OF THE CHEST 09/02/2021 [...] effusion and cardiomegaly. Cultures: Culture, Blood 1 [[id number]] Collected: 08/31/21 1515 Order Status: Completed Specimen: Blood Updated: 09/05/21 1553 Specimen Description .BLOOD Culture NO GROWTH 5 DAYS Culture, Blood 1 [[id number]] Collected: 08/31/21 1519 Order Status: Completed Specimen: Blood Updated: 09/05/21 1531 Specimen Description .BLOOD Culture NO GROWTH 5 DAYS Culture, Body Fluid [[id number]] (Abnormal) Collected: 08/29/21 0342 Order Status: Completed Specimen: Body Fluid Updated: 09/04/21 1436 Specimen Description .FLUID .PERICARDIAL FLUID Direct Exam RARE NEUTROPHILS Abnormal NO BACTERIA SEEN Gram stain made from cytocentrifuged specimen. Organisms and cells will be concentrated. Culture NO GROWTH 6 DAYS Culture, Blood 1 [[id number]] Collected: 08/30/21 0953 Order Status: Completed Specimen: Blood Updated: 09/04/21 1024 Specimen Description .BLOOD Special Requests 10ML R ARM Culture NO GROWTH 5 DAYS Culture, Blood 1 [[id number]] (Abnormal) Collected: 08/30/21 1001 Order Status: Completed [...] [place] at 0425 on 08/31/21 Culture, Respiratory [[id number]] (Abnormal) Collected: 08/30/21 2341 Order Status: Completed [...] Resulted: 09/02/21 08:28 MRSA DNA Probe, Nasal [[id number]] (Abnormal) Collected: 08/29/21 0813 Order Status: Completed [...] (Restricted: peds pts or suitable admitted adults) [[id number]] (Abnormal) Collected: 08/30/21 1115 Order Status: Completed [...] day [facility] Ashish Henao MD [employer] messaging OFFICE: Thank you for allowing us [...] drugs/contrast exposure. Grace Melton CNP [facility] 09/06/2021 Attending Physician Statement I have discussed the care of Elias Walker, including pertinent history and exam findings, with the SINGLE WIRE SAW OPERATOR. I have reviewed the salguero elements of all parts of the encounter with the SINGLE WIRE SAW OPERATOR. I agree with the assessment, plan and orders as documented. Sharda Solitario MD MD, MRCP ([place]), FACP 09/06/2021 1:46 PM [facility] * Artur Quiñones MD - 09/06/2021 9:26 AM EDT [facility] IN-PATIENT SERVICE NEUROLOGY PROGRESS NOTE [...] male who presents with Shortness of Breath ([facility], cardiac tamponade) and Chest Pain . The [...] have cleared. 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 Although every effort was made to ensure the accuracy of this automated color drum worker, some errors in color drum worker may have occurred. Shun Cervantes MD 09/06/2021 10:53 AM * Lynda Jimenez [facility] - 09/05/2021 2:06 PM EDT Pharmacy Note [...] to 20 mg BID [facility] 09/05/2021 2:05 PM * Artur Quiñones MD - 09/05/2021 10:15 AM EDT [facility] IN-PATIENT SERVICE NEUROLOGY PROGRESS NOTE [...] male who presents with Shortness of Breath ([facility], cardiac tamponade) and Chest Pain . The patient was seen and examined and the chart was reviewed. This patient had a recent history of hypertension which appear to be uncontrolled. He also developed shortness of breath and chest pain. He had been evaluated at outside hospital and sent home with management for his hypertension but presented to [facility] for management of shortness of breath [...] will continue to follow Artur Quiñones MD [facility] [place] [facility] * Uriel Grier MD - 09/05/2021 9:55 AM EDT Renal Progress Note Patient : Elias Walker; 36 y.o. Location: [address] [place] [address] Attending: Brian Gracia MD Admit Date: 08/29/2021 [...] exposure. 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 Although every effort was made to ensure the accuracy of this automated color drum worker, some errors in color drum worker may have occurred. Shun Cervantes MD 09/05/2021 [...] negative at 3 days Infection Control Recommendations: [place] precautions Discharge Planning: Estimated Length of IV [...] were no complications encountered. Cardiovascular Diseases Fellow [facility] ONE XRAY VIEW OF THE CHEST 09/02/2021 [...] effusion and cardiomegaly. Cultures: Culture, Body Fluid [[id number]] (Abnormal) Collected: 08/29/21 0342 Order Status: Completed Specimen: Body Fluid Updated: 09/04/21 1436 Specimen Description .FLUID .PERICARDIAL FLUID Direct Exam RARE NEUTROPHILS Abnormal NO BACTERIA SEEN Gram stain made from cytocentrifuged specimen. Organisms and cells will be concentrated. Culture NO GROWTH 6 DAYS Culture, Blood 1 [[id number]] Collected: 08/30/21 0953 Order Status: Completed Specimen: Blood Updated: 09/04/21 1024 Specimen Description .BLOOD Special Requests 10ML R ARM Culture NO GROWTH 5 DAYS Culture, Blood 1 [[id number]] Collected: 08/31/21 1515 Order Status: Completed Specimen: Blood Updated: 09/03/21 0613 Specimen Description .BLOOD Culture NO GROWTH 3 DAYS Culture, Blood 1 [[id number]] Collected: 08/31/21 1519 Order Status: Completed Specimen: Blood Updated: 09/03/21 0613 Specimen Description .BLOOD Culture NO GROWTH 3 DAYS Culture, Blood 1 [[id number]] (Abnormal) Collected: 08/30/21 1001 Order Status: Completed [...] [place] at 0425 on 08/31/21 Culture, Respiratory [[id number]] (Abnormal) Collected: 08/30/211 Order Status: Completed Specimen: [...] Resulted: 09/02/21 08:28 MRSA DNA Probe, Nasal [[id number]] (Abnormal) Collected: 08/29/21 0813 Order Status: Completed [...] (Restricted: peds pts or suitable admitted adults) [[id number]] (Abnormal) Collected: 08/30/21 1115 Order Status: Completed [...] day [facility] Ashish Henao MD [employer] messaging OFFICE: Thank you for allowing us [...] Patient : Elias Walker; 36 y.o. Location: [address] [place] [address] Attending: Brian Gracia MD Admit Date: 08/29/2021 [...] M.D. 09/02/2021 12:25 PM PATH ELECTRONICALLY SIGNED. OZE STERN M.D. 09/02/2021 12:25 PM C3: Lab [...] pertinent history and exam findings with the SINGLE WIRE SAW OPERATOR. I have reviewed the salguero elements of all parts of the encounter with the SINGLE WIRE SAW OPERATOR. I have seen and examined the patient. I agree with the assessment and plan and status of the problem list as documented. Uriel Grier MD Nephrology Attending Physician [facility] 09/04/2021 * Artur Quiñones MD - 09/04/2021 10:23 AM EDT [facility] IN-PATIENT SERVICE NEUROLOGY PROGRESS NOTE [...] male who presents with Shortness of Breath ([facility], cardiac tamponade) and Chest Pain . The [...] which was multifactorial. 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 Although every effort was made to ensure the accuracy of this automated color drum worker, some errors in color drum worker may have occurred. Shun Cervantes MD 09/04/2021 [...] clear. Continue supportive therapy Infection Control Recommendations: [place] precautions Discharge Planning: Estimated Length of IV [...] were no complications encountered. Cardiovascular Diseases Fellow [facility] ONE XRAY VIEW OF THE CHEST 09/02/2021 [...] effusion and cardiomegaly. Cultures: Culture, Body Fluid [[id number]] (Abnormal) Collected: 08/29/21 0342 Order Status: Completed Specimen: Body Fluid Updated: 09/03/21 0731 Specimen Description .FLUID .PERICARDIAL FLUID Direct Exam RARE NEUTROPHILS Abnormal NO BACTERIA SEEN Gram stain made from cytocentrifuged specimen. Organisms and cells will be concentrated. Culture NO GROWTH 5 DAYS Culture, Blood 1 [[id number]] Collected: 08/31/21 1515 Order Status: Completed Specimen: Blood Updated: 09/03/21612 Specimen Description .BLOOD Culture NO GROWTH 3 DAYS Culture, Blood 1 [[id number]] Collected: 08/31/21 1519 Order Status: Completed Specimen: Blood Updated: 09/03/21612 Specimen Description .BLOOD Culture NO GROWTH 3 DAYS Culture, Blood 1 [[id number]] Collected: 08/30/21 0953 Order Status: Completed Specimen: Blood Updated: 09/03/21612 Specimen Description .BLOOD Special Requests 10ML R ARM Culture NO GROWTH 4 DAYS Culture, Blood 1 [[id number]] (Abnormal) Collected: 08/30/21 1001 Order Status: Completed [...] [place] at 0425 on 08/31/21 Culture, Respiratory [[id number]] (Abnormal) Collected: 08/30/21 2341 Order Status: Completed [...] Last Resulted: 09/02/21 08:28 Culture, Blood 1 [[id number]] (Abnormal) Collected: 08/30/21 1001 Order Status: Completed [...] 0425 on 08/31/21 MRSA DNA Probe, Nasal [[id number]] (Abnormal) Collected: 08/29/21 0813 Order Status: Completed [...] (Restricted: peds pts or suitable admitted adults) [[id number]] (Abnormal) Collected: 08/30/21 1115 Order Status: Completed [...] (Restricted: peds pts or suitable admitted adults) [[id number]] Collected: 08/30/21 0930 Order Status: Canceled Specimen: [...] day [facility] Ashish Henao MD [employer] messaging OFFICE: Thank you for allowing us [...] extrapolated by contextual diversion. * Jocelyn Ferro, [facility] - 09/03/2021 1:14 PM EDT Pharmacy Note Renal Dose Adjustment Elias Walker is a 36 y.o. male. Pharmacist assessment of renally cleared medications. Recent Labs 09/02/21 0841 09/03/21 06 BUN 31* 36* Recent Labs 09/02/21 0841 09/03/21 0642 CREATININE 1.86* 1.99* Estimated Creatinine Clearance: 59 mL/min (A) (based on SCr of 1.99 mg/dL (H)). Estimated CrCl using [place] Body Weight: 42 mL/min (based on IBW 59.2 kg) Height: Ht Readings from Last 1 Encounters: 08/31/21 5' 4 (1.626 m) Weight: Wt Readings from Last 1 Encounters: 09/03/21 254 lb 13.6 oz (115.6 kg) The following medication dose has been adjusted based upon renal function per P&T Guidelines: Famotidine BID to daily Jocelyn Ferro PharmD [facility] 09/03/2021 1:13 PM * Falguni Sherman PT [...] loss Fluid Accumulation: No significant fluid accumulation Slip Caster Strength: Not Performed Nutrition Assessment: Chart reviewed. [...] at 25 mL/hr + 2 proteinex protein modulars/itx=258bhcn and 105 g pro/day Additional Calorie Sources: Propofol at 23.5 mL/hr (with possible increase per RN) =620 kcal/day Anthropometric Measures: Height: 5' 4 (162.6 cm) [place] Body Weight (IBW): 130 lbs (59 kg) [...] Used for Energy Requirements: Admission Energy (kcal/day): 8159-3164 kcal/day Weight Used for Protein Requirements: [place] Protein (g/day): 120 g/day Method Used for [...] About a week ago he presented to [facility] with complaints of chest pain and [...] placed on nitroglycerin drip and transferred to [facility]. 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 Although every effort was made to ensure the accuracy of this automated color drum worker, some errors in color drum worker may have occurred. Shun Cervantes MD 09/03/2021 1:12 PM * Lorna Moyer MD - 09/03/2021 6:48 AM EDT Images from the original note were not included. [employer] Operator Progress Note Date: 09/03/2021 Patient name: Elias [...] with any questions SARMAD WESLEY MD RESIDENT, [facility] 09/03/2021,1:51 AM Attending Physician Statement I have discussed the case of Elias Walker including pertinent history and exam findings with theresident. I have seen and examined the patient and the salguero elements of the encounter have been performed by me. I agree with the assessment, plan and orders as documented by the resident With changesmade to the note. . [place] [employer] Operator [phone] * Ashish Henao MD - 09/02/2021 12:47 [...] clear. Continue supportive therapy Infection Control Recommendations: [place] precautions Discharge Planning: Estimated Length of IV [...] effusion and cardiomegaly. Cultures: Culture, Blood 1 [[id number]] (Abnormal) Collected: 08/30/21 1001 Order Status: Completed [...] at 0425 on 08/31/21 Culture, Blood 1 [[id number]] Collected: 08/30/21 0953 Order Status: Completed Specimen: Blood Updated: 09/02/21 1023 Specimen Description .BLOOD Special Requests 10ML R ARM Culture NO GROWTH 3 DAYS Culture, Respiratory [[id number]] (Abnormal) Collected: 08/30/21 2341 Order Status: Completed [...] Last Resulted: 09/02/21 08:28 Culture, Blood 1 [[id number]] Collected: 08/31/21 1515 Order Status: Completed Specimen: Blood Updated: 09/01/21 1554 Specimen Description .BLOOD Culture NO GROWTH 1 DAY Culture, Blood 1 [[id number]] Collected: 08/31/21 1519 Order Status: Completed Specimen: Blood Updated: 09/01/21 1528 Specimen Description .BLOOD Culture NO GROWTH 1 DAY Culture, Blood 1 [[id number]] (Abnormal) Collected: 08/30/21 1001 Order Status: Completed [...] (PCR) results called to and readback by: BAUTISAT Greenfield at 0425 on 08/31/21 MRSA DNA Probe, Nasal [[id number]] (Abnormal) Collected: 08/29/21 0813 Order Status: Completed [...] (Restricted: peds pts or suitable admitted adults) [[id number]] (Abnormal) Collected: 08/30/21 1115 Order Status: Completed [...] (Restricted: peds pts or suitable admitted adults) [[id number]] Collected: 08/30/21929 Order Status: Canceled Specimen: Nasopharyngeal Swab Medications: heparin (porcine) 5,000 Units SubCUTAneous 3 times per day furosemide 40 mg IntraVENous BID ceftaroline fosamil (TEFLARO) IVPB 400 mg IntraVENous Q12H famotidine 20 mg Per G Tube BID [Held by provider] carvedilol 6.25 mg Oral BID sodium chloride flush 5-40 mL IntraVENous 2 times per day [facility] Ashish Henao MD [employer] OFFICE: Thank you for allowing us to [...] the original note were not included. [employer] Operator Progress Note Date: 09/02/2021 Patient name: Elias [...] against echocardiographic tamponade. Rosa RICARDO [facility] Work Phone: evaluation noteNo assessment information available [facility] Work Phone: Evaluation note* Diagnosis Cerebral septic [...] accident (CVA) (HCC) documented in this encounter [employer] Phone: evaluation note* Diagnosis Sepsis due to Streptococcus species without acute organ dysfunction (HCC)- Primary documented in this encounter [employer] Phone: evaluation note* Diagnosis Sepsis due to Streptococcus species without acute organ dysfunction (HCC)- Primary documented in this encounter [employer] Phone: evaluation note* Diagnosis Sepsis due to Streptococcus species without acute organ dysfunction (HCC)- Primary documented in this encounter [employer] Phone: evaluation note* Diagnosis Sepsis due to Streptococcus species without acute organ dysfunction (HCC)- Primary documented in this encounter [employer] Phone: evaluation note* Diagnosis Acute kidney injury (HCC) Acute kidney failure, unspecified documented in this encounter [employer] Phone: evaluation note* Diagnosis Sepsis due to Streptococcus species without acute organ dysfunction (HCC)- Primary documented in this encounter [employer] Phone: evaluation note* Diagnosis Sepsis due to Streptococcus species without acute organ dysfunction (HCC)- Primary documented in this encounter [employer] Phone: evaluation note* Diagnosis Sepsis due to Streptococcus species without acute organ dysfunction (HCC)- Primary documented in this encounter [employer] Phone: evaluation note* Diagnosis Sepsis due to Streptococcus species without acute organ dysfunction (HCC)- Primary documented in this encounter [employer] Phone: evaluation note* Diagnosis Sepsis due to Streptococcus species without acute organ dysfunction (HCC)- Primary documented in this encounter [employer] Phone: evaluation note* Diagnosis Sepsis due to Streptococcus species without acute organ dysfunction (HCC)- Primary documented in this encounter [employer] Phone: [email or web address] note* Diagnosis Sepsis due to Streptococcus species without acute organ dysfunction (HCC)- Primary documented in this encounter [employer] Phone: evaluation note* Diagnosis Acute kidney injury (HCC) Acute kidney failure, unspecified Hypercalcemia Dilated cardiomyopathy (HCC) Other primary cardiomyopathies Primary hypertension Unspecified essential hypertension documented in this encounter [employer] Phone: [email or web address] note* Diagnosis Sepsis due to Streptococcus species without acute organ dysfunction (HCC)- Primary documented in this encounter [employer] Phone: evaluation note* Diagnosis Hypercalcemia documented in this encounter [employer] Phone: evaluation note* Diagnosis Multiple vessel coronary artery disease- Primary Coronary atherosclerosis of unspecified type of vessel, [place] or graft S/P CABG (coronary artery bypass graft) Postsurgical aortocoronary bypass status NSTEMI (non-ST elevated myocardial infarction) ([facility]) Acute myocardial infarction, subendocardial infarction, episode of care unspecified Hypertensive crisis Unspecified essential hypertension Acute kidney injury superimposed on CKD (HCC) Morbid obesity ([facility]) Morbid obesity Anxiety Anxiety state, unspecified Essential hypertension Unspecified essential hypertension Allergic rhinitis Allergic rhinitis, cause unspecified HHNC (hyperglycemic hyperosmolar nonketotic coma) ([facility]) Type II or unspecified type diabetes mellitus with hyperosmolarity, not stated as uncontrolled History of primary hyperparathyroidism IAN (obstructive sleep apnea) Obstructive sleep apnea (adult) (pediatric) History of type 2 diabetes mellitus Personal history of other endocrine, metabolic, and immunity disorders documented in this encounter [employer] Phone: [email or web address] note* Diagnosis Acute kidney injury (HCC) Acute kidney failure, unspecified Hypercalcemia Dilated cardiomyopathy (HCC) Other primary cardiomyopathies Primary hypertension Unspecified essential hypertension documented in this encounter [employer] Phone: evaluation note* Diagnosis Acute kidney injury [...] Unspecified essential hypertension documented in this encounter [facility] [employer] Phone: evaluation note* Diagnosis Mixed hyperlipidemia [facility] Diagnosis Type 2 diabetes mellitus with microalbuminuria, without long-term current use of insulin ([facility]) documented [facility] this [facility]* Diagnosis Uncontrolled type 2 diabetes mellitus with hyperglycemia ([facility])- Primary Type 2 diabetes mellitus with microalbuminuria, without long-term current use of insulin ([facility]) Type 2 diabetes mellitus with stage 3 chronic kidney disease and hypertension ([facility]) documented in this encounter [facility]* Diagnosis Uncontrolled type 2 diabetes mellitus with hyperglycemia ([facility]) Type 2 diabetes mellitus with stage 3 chronic kidney disease and hypertension ([facility]) Type 2 diabetes mellitus with microalbuminuria, without long-term current use of insulin ([facility]) documented in this encounter [facility]* Diagnosis Type 2 diabetes mellitus with microalbuminuria, without long-term current use of insulin ([facility])- Primary documented in this encounter [facility]* Diagnosis Seasonal allergic rhinitis due to pollen documented in this encounter [facility]* Diagnosis Type 2 diabetes mellitus with microalbuminuria, without long-term current use of insulin ([facility])- Primary Mixed anxiety and depressive disorder Dysthymic disorder Mixed hyperlipidemia Stage 3b chronic kidney disease ([facility]) documented [facility] this encounter [facility]* Diagnosis Type 2 diabetes mellitus with microalbuminuria, without long-term current use of insulin ([facility])- Primary Primary hypertension Unspecified essential hypertension Current moderate episode of major depressive disorder without prior episode ([facility]) Mixed hyperlipidemia documented in this encounter [facility]* Diagnosis Type 2 diabetes mellitus with microalbuminuria, without long-term current use of insulin ([facility])- Primary documented in this encounter [facility]* Diagnosis Lesion of tongue- Primary documented in this encounter [facility]* Diagnosis Lesion of tongue- Primary documented in this encounter [facility]* Diagnosis Type 2 diabetes mellitus with microalbuminuria, without long-term current use of insulin ([facility])- Primary Type 2 diabetes mellitus with stage 3 chronic kidney disease and hypertension ([facility]) Anxiety and depression Snoring Other dyspnea and respiratory abnormality Mixed hyperlipidemia documented in this encounter [facility]* Diagnosis Type 2 diabetes mellitus with microalbuminuria, without long-term current use of insulin ([facility])- Primary Fasting hyperglycemia documented in this encounter [facility]* Diagnosis Uncontrolled type 2 diabetes mellitus with hyperglycemia ([facility])- Primary Moderate episode of recurrent major depressive disorder ([facility]) documented in this encounter [facility]* Diagnosis Folliculitis- Primary Other specified disease of hair and hair follicles documented in this encounter [facility]* Diagnosis Type 2 diabetes mellitus with microalbuminuria, without long-term current use of insulin ([facility]) documented in this encounter [facility]* Diagnosis Type 2 diabetes mellitus with microalbuminuria, without long-term current use of insulin ([facility])- Primary documented in this encounter [facility]* Diagnosis Moderate episode of recurrent major depressive disorder ([facility]) Type 2 diabetes mellitus with stage 3 chronic kidney disease and hypertension ([facility]) documented in this encounter [facility]* Diagnosis Type 2 diabetes mellitus with microalbuminuria, without long-term current use of insulin ([facility])- Primary Moderate episode of recurrent major depressive disorder ([facility]) Mixed hyperlipidemia Seasonal allergic rhinitis due to pollen Type 2 diabetes mellitus with stage 3 chronic kidney disease and hypertension ([facility]) Anxiety and depression Comprehensive diabetic foot examination, type 2 DM, encounter for ([facility]) [facility] Diagnosis Type 2 diabetes mellitus with microalbuminuria, without long-term current use of insulin ([facility]) documented in this encounter [facility]* Diagnosis Type 2 diabetes mellitus with microalbuminuria, without long-term current use of insulin ([facility])- Primary [facility] Diagnosis Type 2 diabetes mellitus with microalbuminuria, without long-term current use of insulin ([facility])- Primary documented in this encounter [facility]* Diagnosis Type 2 diabetes mellitus with other diabetic kidney complication ([facility]) Essential hypertension, malignant Stage 3 chronic kidney disease, unspecified whether stage 3a or 3b CKD ([facility]) Morbid obesity ([facility]) Morbid obesity documented in this encounter [facility]* Diagnosis Moderate episode of recurrent major depressive disorder ([facility]) documented in this encounter [facility]* Diagnosis Uncontrolled type 2 diabetes mellitus with hyperglycemia ([facility])- Primary Type 2 diabetes mellitus with microalbuminuria, without long-term current use of insulin ([facility]) Anxiety and depression Type 2 diabetes mellitus with stage 3 chronic kidney disease and hypertension ([facility]) documented in this encounter [facility]* Diagnosis Seasonal allergic rhinitis due to pollen documented in this encounter [facility]* Diagnosis Type 2 diabetes mellitus with microalbuminuria, without long-term current use of insulin ([facility])- Primary documented in this encounter [facility]* Diagnosis Loose stools- Primary Abnormal feces documented in this encounter [facility]* Diagnosis Loose stools- Primary Abnormal feces documented in this encounter [facility]* Diagnosis Mixed hyperlipidemia documented in this encounter [facility]* Diagnosis Mixed hyperlipidemia documented in this encounter [facility]* Diagnosis Screen for STD (sexually transmitted disease)- Primary Screening examination for venereal disease Type 2 diabetes mellitus with stage 3 chronic kidney disease and hypertension ([facility]) Primary hypertension Unspecified essential hypertension Loose stools Abnormal feces Moderate episode of recurrent major depressive disorder ([facility]) Class 3 severe obesity due to excess calories with serious comorbidity and body mass index (BMI) of40.0 to 44.9 in adult ([facility]) documented in this encounter [facility]* Diagnosis Anxiety and depression documented in this encounter [facility] SystemInstructionsNot on filedocumented in this encounter [facility]Instructions* Attachments The following attachments cannot be sent through Care Everywhere. * Diabetes and diet ([place]) [facility]* Attachments The following attachments cannot be sent through Care Everywhere. * Diabetes and diet ([place]) documented in [facility] SystemInstructionsNot on file documented in this [facility] SystemInstructionsNot on file documented in this encounter[facility] SystemInstructionsNot on file documented in this [facility]Pro[facility] SystemInstructions* Attachments The following attachments cannot be sent through Care Everywhere. * Diabetes Exchange Diet ([place]) documented in this encounter[facility] SystemInstructionsNot on file documented in this encounter[facility] SystemInstructionsNot on file documented in this [facility] SystemInstructionsNot on file documented in this [facility] SystemInstructions* Attachments The following attachments cannot be sent through Care Everywhere. * Anxiety Discharge Instructions, Adult ([place]) documented in this encounterProInf[facility] SystemInstructionsNot on file documented in this encounter[facility] SystemInstructionsNot on file [facility] SystemInstructions* Attachments The following attachments cannot be sent through Care Everywhere. * Carb counting for adults with diabetes ([place]) documented in this encounterProInf[facility] SystemInstructions* Attachments The following attachments cannot be sent through Care Everywhere. * Folliculitis ([place]) documented in this encounterProInf[facility] SystemInstructionsNot on file documented in this encounterPro[facility] SystemInstructionsNot on file documented in this encounterPro[facility] SystemInstructions* Attachments The following attachments cannot be sent through Care Everywhere. * Depression ([place]) documented in this encounterProInf[facility] SystemInstructionsNot on file documented in [facility] SystemInstructions* Attachments The following attachments cannot be sent through Care Everywhere. * Carb counting for adults with diabetes ([place]) documented in this encounterProInf[facility] SystemInstructionsNot on file documented in this encounterProInf[facility] SystemInstructionsNot on file documented in this encounterGu[facility] SystemReason for referral (narrative)* Consultation (Routine) - Pending ReviewSpecialtyDiagnoses / ProceduresReferred By ContactReferred To ContactOtolaryngology Diagnoses Lesion of tongue Eliana Merino, DIRECTOR PRODUCT-BANK TELLER [address] [place] [address] Kate Matt MD [address] [address] Referral IDStatusReasonStart DateExpiration DateVisits RequestedVisits [id number] Specialty Services Required [facility] for referral (narrative)* Consultation (Routine) - Pending ReviewSpecialtyDiagnoses / ProceduresReferred By ContactReferred To [facility] Medicine Diagnoses Snoring Jose Khanna, DIRECTOR PRODUCT-SINGLE WIRE SAW OPERATOR [address] [place] [address] Pari Painter MD [facility] [place] [address] Referral IDStatusReasonStaltoona DateExpiration DateVisits RequestedVisits [id number] Review Specialty Services Required Electronically signed by Jose Khanna DIRECTOR PRODUCT-[facility] at 04/19/2023 9:22 AM [facility] for visit Narrative* Treatment Plan and Therapy Plan (Routine) - AuthorizedSpecialtyDiagnoses / ProceduresReferred By Contact Referred To Contact Diagnoses Sepsis due to Streptococcus species without acute organ dysfunction (HCC) Procedures SC CEFTRIAXONE SODIUM INJECTION Jared Hernandez MD [address] [facility] [address] [place] [address] Med Surg [address] [place] [address] Referral IDStatusReasonStart DateExpiration DateVisits RequestedVisits [id number]/10/20227/999 [facility] Phone: reason for visit Narrative* Treatment Plan and Therapy Plan (Routine) - OpenSpecialtyDiagnoses / ProceduresReferred By Contact Referred To Contact Diagnoses Sepsis due to Streptococcus species without acute organ dysfunction (HCC) Jared Hernandez MD [address] [facility] [address] [place] [address] [facility] [address] [place] [address] Referral IDStatusReasonStart DateExpiration DateVisits RequestedVisits [id number]/12/20227/ [employer] Phone: Chief Complaint and Reason for Visit [...] RelationshipCommunicationNicolle GoodGirlfriend Primary Decision Maker* NameRelationshipHealthcare Agent RelationshipCommunicationAshajay GoodGirlfriend Primary Decision Maker* NameRelationshipHealthcare Agent RelationshipCommunicationNicolle [...] (HCC) Vitamin D deficiency Solange Mercer MD [address] [place] [address] Chioma Dawkins MD [address] [place] [address] Referral IDStatusReasonStart DateExpiration DateVisits RequestedVisits [id number] Specialty Services Required /[id number] / ProceduresReferred By ContactReferred To Contact Diagnoses Type 2 diabetes mellitus with microalbuminuria, without long-term current use of insulin ([facility]) Jose Khanna, DIRECTOR PRODUCT-SINGLE WIRE SAW OPERATOR [address] [place] [address] Referral IDStatusReasonStart DateExpiration DateVisits RequestedVisits [id number] IDStatusReasonStart DateExpiration DateVisits RequestedVisits [id number] Review/ SpecialtyDiagnoses / ProceduresReferred By ContactReferred To Contact Diagnoses Moderate episode of recurrent major depressive disorder ([facility]) Jose Khanna, DIRECTOR PRODUCT-SINGLE WIRE SAW OPERATOR [address] [place] [address] Referral IDStatusReasonStart DateExpiration DateVisits RequestedVisits [id number]/9/20249/297919Didyfwik IDStatusReasonStart Date Expiration DateVisits RequestedVisits [id number] Review11/27/[id number] IDStatusReasonStart DateExpiration DateVisits Requested Visits [id number] Summary Purpose Family History No Family History [...] Provider Active Team MemberRelationshipSpecialtyStart DateEnd Date Jose Khnana, DIRECTOR PRODUCT - SINGLE WIRE SAW OPERATOR [address], [place] [address] PCP - Sybttqe82/6/22Team MemberRelationshipSpecialtyStart DateEnd Date Jose Khanna, DIRECTOR PRODUCT - SINGLE WIRE SAW OPERATOR [address], [place] [address] PCP - Mfvgihw43/6/22Team MemberRelationshipSpecialtyStart DateEnd Date Jose Khanna DIRECTOR PRODUCT - SINGLE WIRE SAW OPERATOR [address], [place] [address] PCP - Iproost54/6/22Team MemberRelationshipSpecialtyStart DateEnd Date Jose Khanna, DIRECTOR PRODUCT - SINGLE WIRE SAW OPERATOR [address], [place] [address] PCP - Tnhreqb00/6/22Team MemberRelationshipSpecialtyStart DateEnd Date Jose Khanna DIRECTOR PRODUCT - SINGLE WIRE SAW OPERATOR [address], [place] [address] PCP - Xzbrvyk59/6/22Team MemberRelationshipSpecialtyStart DateEnd Date Jose Khanna, DIRECTOR PRODUCT - SINGLE WIRE SAW OPERATOR [address], [place] [address] PCP - Zjpgqbc14/6/22Team MemberRelationshipSpecialtyStart DateEnd Date Jose Khanna, DIRECTOR PRODUCT - SINGLE WIRE SAW OPERATOR [address], [place] [address] PCP - Gojbntw81/6/22Team MemberRelationshipSpecialtyStart DateEnd Date Jose Khanna, DIRECTOR PR[facility] [address] [place] [address] PCP - GeneralFamily Medicine10/21/21Team MemberRelationshipSpecialtyStart DateEnd Date Jose Khanna, DIRECTOR PRODUCT[facility] [address] [place] [address] PCP - Generalmily Medicine10/21/21Team MemberRelationshipSpecialtyStart DateEnd Date Jose Khanna, DIRECTOR PR[facility] [address] [place] [address] PCP - GeneralFamily Medicine10/21/21Team MemberRelationshipSpecialtyStart DateEnd Date Jose Khanna, DIRECTOR PR[facility] [address] [place] [address] PCP - Generalmily Medicine10/21/21Team MemberRelationshipSpecialtyStart DateEnd Date Jose Khanna, DIRECTOR PR[facility] [address] [place] [address] PCP - GeneralFamily Medicine10/21/21Team MemberRelationshipSpecialtyStart DateEnd Date Jose Khanna, [facility] [address] [place] [address] PCP - GeneralFamily Medicine10/21/21Team MemberRelationshipSpecialtyStart DateEnd Date Jose Khanna, [facility] [address] [place] [address] PCP - Generalmi Medicine10/21/21Team MemberRelationshipSpecialtyStart DateEnd Date Jose Khanna, [facility] [address] [place] [address] PCP - Generalmi Medicine10/21/21Team MemberRelationshipSpecialtyStart DateEnd Date Jose Khanna, [facility] [address] [place] [address] PCP - Generalmi Medicine10/21/21Team MemberRelationshipSpecialtyStart DateEnd Date Jose Khanna, [facility] [address] [place] [address] PCP - Generalmily Medicine10/21/21Team MemberRelationshipSpecialtyStart DateEnd Date Jose Khanna, DIRECTOR PRODUCT[facility] [address], [place] [address] PCP - GeneralFamily Medicine10/21/21Team MemberRelationshipSpecialtyStart DateEnd Date Jose Khanna, DIRECTOR PR[facility] [address] [place] [address] PCP - GeneralFamily Medicine10/21/21Team MemberRelationshipSpecialtyStart DateEnd Date Jose Khanna, DIRECTOR PR[facility] [address] [place] [address] PCP - GeneralFamily Medicine10/21/21Team MemberRelationshipSpecialtyStart DateEnd Date Jose Khanna [facility] [address] [place] [address] PCP - GeneralFamily Medicine10/21/21Team MemberRelationshipSpecialtyStart DateEnd Date Jose Khanna, DIRECTOR [facility] [address] [place] [address] PCP - GeneralFamily Medicine10/21/21Team MemberRelationshipSpecialtyStart DateEnd Date Jose Khanna DIRECTOR PR[facility] [address] [place] [address] PCP - GeneralFamily Medicine10/21/21Team MemberRelationshipSpecialtyStart DateEnd Date Jose Khanna, DIRECTOR PR[facility] [address] [place] [address] PCP - GeneralFamily Medicine10/21/21Team MemberRelationshipSpecialtyStart DateEnd Date Jose Khanna, DIRECTOR PR[facility] [address] [place] [address] PCP - Generalmi Medicine10/21/21Team MemberRelationshipSpecialtyStart DateEnd Date Jose Khanna, DIRECTOR PRODUCT[facility] [address] [place] [address] PCP - [facility] Medicine10/21/21Team MemberRelationshipSpecialtyStart DateEnd Date Jose Khanna, DIRECTOR PR[facility] [address] [place] [address] PCP - [facility] Medicine10/21/21Team MemberRelationshipSpecialtyStart DateEnd Date Jose Khanna, DIRECTOR PR[facility] [address] [place] [address] PCP - Generalmi Medicine10/21/21Team MemberRelationshipSpecialtyStart DateEnd Date Jose Khanna, DIRECTOR PR[facility] [address] [place] [address] PCP - Generalmi Medicine10/21/21Team MemberRelationshipSpecialtyStart DateEnd Date Sheng Buckner, DIRECTOR PR[facility] [address] [place] [address] PCP - [facility] Hospitalnal Onlsguhd89/27/25Team MemberRelationshipSpecialtyStart Date End Date Sheng Buckner, DIRECTOR PRODUCT-SINGLE WIRE SAW OPERATOR [address] [place] [address] PCP - GeneralInternal Hspurnjz67/27/25 Goals (unrecognized section and content) Goals may [...] PainNo longer has chest pain, [facility] with chest painPolydipsiaSpecialtyDiagnoses / ProceduresReferred By ContactReferred To Contact Diagnoses NSTEMI (non-ST elevated myocardial infarction) (HCC) NSTEMI Fly Zapata DO [address] [place] [address] [facility] [address] [place] [address] Referral IDStatusReasonStart DateExpiration DateVisits RequestedVisits [id number] DateCommentsMed [id number] Follow-upReasonCommentsDiabetesBeen running high. 190ReasonCommentsDexcom TrainingReasonCommentsMed RefillReasonCommentsFollow-upReasonCommentsDiabetes HypertensionReasonCommentskeeps biting tongue more frequent last 3 weeksReason CommentsDiabetesReasonCommentsDiabetesSugar been znam028ZmncecRfbsctexjusxoxu Blood sugarsBlood sugars have been fine except the first day was 500. Then today 215 fastingReasonCommentslump under right armReasonCommentsCGM Application Instructed patient and his girlfriend, Nicolle on how to apply the Dexcom 7. Nicolle states that she understands and I have instructed them if they need to come back they can for his next application.ReasonOnset DateCommentsMed Refill 4ReasonCommentsApplication of DexcomReasonOnset DateCommentsMed Refill 1556DzmmbgPxyfhziqXunyokiq183 accucheckHypertensionReasonCommentsMed Change RequestReasonOnset DateCommentsMed Abeaus694ReasonCommentsMed Change RequestReasonOnset DateCommentsBlood Sugar Qbmfzje87/27/2024ReasonOnset DateCommentsMed Bkemjy6804/21/2024ReasonCommentsMNT - IndividualSpecialtyDiagnoses / ProceduresReferred By ContactReferred To ContactEndocrinology, Diabetes & Metabolism Diagnoses Type 2 diabetes mellitus with other diabetic kidney complication ([facility]) Essential hypertension, malignant Stage 3 chronic kidney disease, unspecified whether stage 3a or 3b CKD ([facility]) Morbid obesity ([facility]) Jacob Cochran, DO [address] [place] [address] Phone: tel: fax: [facility] [address] [place] [address] Phone: tel: fax: Referral IDStatusReasonStart DateExpiration DateVisits RequestedVisits [id number] Review Specialty Services Required [id number]bjmzkepjbvVckfyiotpsObsehwDkash Date CommentsAppointment Unzbniv7610/02/2024ReasonCommentsest care/ partner tested positive for Trich- needs tested Ordered Prescriptions (unrec ognized section and content) PrescriptionSigDispensedRefillsStart DateEnd Date Vitamin D, Ergocalciferol, 00036 units CAPS 50,000 Units by Per NG [...] protocol 32 g / Ergocalciferol (VITAMIN D) 12091 units CAPS 50,000 Units by Per NG [...] * 1700 (Due - Provider: Ariel Sifuentes [facility]) NIFEdipine (PROCARDIA XL) extended release tablet 30 [...] RN) * 213 (Given - Provider: Ladonna Eilse, BAUTISTA) * 0826 (Given - Provider: Triny [...] Low Dose Algorithm Glucose: Dose: 70-139 No Scrqslu443-397 1 Unit 250-349 2 Units Over 350 [...] RN) * 0854 (Not Given - Provider: Particia Ochoa RN - Reason: Order parameters not [...] pacemaker, Post-op * 2025 (Given - Provider: Sukh Borja RN) * 0741 (Given - Provider: Martha Irizarry RN) * 1009 (Canceled Entry - Provider: Martha Irizarry RN) metoprolol tartrate (LOPRESSOR) tablet 25 mg 25 mg, Oral, 2 TIMES DAILY, First dose (after last modification) on [place] 06/05/22 at 2100, Until Discontinued, Hold for [...] * 0741 (Given - Provider: Martha Irizarry, RN) * 0859 (Given - Provider: [...] section and content) DATE CREATED AUTHOR 04/09/2022 [facility] DATE CREATED AUTHOR AUTHOR'S ORGANIZ ATION 05/25/2022 [facility] DATE CREATED AUTHOR AUTHOR'S ORGANIZ ATION 10/24/2022 [facility] DATE CREATED AUTHOR AUTHOR'S ORGANIZ ATION 04/03/2023 [facility] DATE CREATED AUTHOR AUTHOR'S ORGANIZ ATION 09/06/2023 [facility] DATE CREATED AUTHOR AUTHOR'S ORGANIZ ATION 02/16/2024 [facility] DATE CREATED AUTHOR AUTHOR'S ORGANIZ ATION 11/16/2024 [facility] DATE CREATED AUTHOR AUTHOR'S ORGANIZ ATION 12/13/2024 [facility] DATE CREATED AUTHOR AUTHOR'S ORGANIZ ATION 12/31/2024 [facility] FOR RECORDS PERTAINING TO PATIENTS [...] BE BASED ON THE PRIMARY CLINICAL RECORDS. RUN [facility]. provides no warranty or guarantee of the accuracy or completeness of information in this document.
[2025-03-01] MEDS: SULFAMETHOXAZOLE/TRIMETHOPRIM 800-160 MG TABLET 1 TAB PO (19:01)
[2025-03-01] MEDS: CEPHALEXIN 500 MG CAPSULE PO (19:01)
[2025-03-01 19:03] VITALS: BP 161/121; PULSE 103; O2SAT 96
== END 2025-03-01 19:07 | disposition home or self-care (01) ==
PROVIDERS: Emergency Provider Student in an Organized Health Care Education/Training Program; PCP Nurse Practitioner Family
DX: L03.114 Cellulitis of left upper limb (principal); L53.8 Other specified erythematous conditions; R22.32 Localized swelling, mass and lump, left upper limb
CPT/HCPCS: 99283

== ENCOUNTER 2025-03-03 19:08 | Emergency (ER) | payer MEDICAID, SELFPAY ==
[2025-03-03 19:25] VITALS: BP 151/70; PULSE 102; TEMP 36.9; O2SAT 95; BMI 43.9
--- OUTSIDE RECORDS SUMMARY | 2025-03-03 22:54 | XMS_ITS | Encounter Summary ---
Author Organization [employer] [facility] Address [id number] [address] [place] [address] Care Team Providers Care Drier Name Role Phone Luis Felipe Buckner STRAIGHTENING MACHINE FEEDER-IT INFRASTRUCTURE ARCHITECT Primary Care Provider + Encounter Details DateTypeDepartmentCare Team (Latest Contact Info)Bgbjhmkvviz91/29/2025Results [facility] [address] [place] [address] Luis Felipe Buckner, STRAIGHTENING MACHINE FEEDER-IT INFRASTRUCTURE ARCHITECT [address] [facility] [address] [place] [address] Trichomonas by PCR, Chlamydia/Gonorrhoeae by PCR, Urine Social History Tobacco UseTypesPacks/DayYears UsedDateSmoking Tobacco: FormerCigarettes0.314 Smokeless Tobacco: FormerAlcohol UseStandard Drinks/WeekCommentsNot Currently0 (1 standard drink = 0.6 oz pure alcohol)OccasionallySocial Connection and Isolation PanelAnswerDate RecordedIn a typical week, how many times do you talk on the phone with family, friends, or neighbors?Once a week01/26/2022How often do you get together with friends or relatives?Never01/26/2022How often do you attend mandaeism or hinduism services?Never2Do you belong to any clubs or organizations such as mandaeism groups, unions, fraternal or athletic groups, or school groups?No01/26/2022How often do you attend meetings of the clubs or organizations you belong to?Never01/26/2022re you , , , , never , or living with a partner?Living with dhhkxoz5101/26/2022 AUDIT-CAnswerDate RecordedQ1: How often do you have [...] care, and heating?Not very hard06/10/2024PHQ-2Answer Date RecordedTotal Vpfwk331Finblue mountain hospital, inc. [place] [employer] - Occupational Stress QuestionnaireAnswerDate RecordedDo you feel stress - tense, restless, nervous, or anxious, or unable to sleep at night because yourmind is troubled all the time - these days?To some fxpczh5301/26/2022Exercise Vital Sign AnswerDate RecordedOn average, how many [...] part of a household?No06/10/2024hildcareAnswerDate RecordedDo problems getting children's tutor make it difficult for you to work [...] have received?Associate degree: occupational, technical, or vocational qkzgdqe7001/26/2022ex and Gender InformationValueDate RecordedSex Assigned at BirthNot on fileLegal SexMale 10/09/2014 12:04 PM EDTGender IdentityNot on fileSexual OrientationNot on file documented as of this encounter Plan of Treatment DateTypeDepartmentCare Team (Latest Contact Info)Oxukocusqqv33/27/2026 4:00 PM EDTOffice Visit [facility] [address] [place] [address] Luis Felipe Buckner, STRAIGHTENING MACHINE FEEDER-IT INFRASTRUCTURE ARCHITECT [address], [place] [address] documented as of this encounter Visit Diagnoses Not on filedocumented in this encounter Additional Health Concerns AssessmentNoted TimePHQ-9 Depression Total Score: 2:25 PM EDTA Body Mass Index follow-up plan has been documented for the msflhgl2006/10/2024 3:31 PM EDTdocumented as of this encounter Care Teams Team MemberRelationshipSpecialtyStart DateEnd Date Luis Felipe Buckner, STRAIGHTENING MACHINE FEEDER-IT INFRASTRUCTURE ARCHITECT [address] [place] [address] PCP - GeneralInternal Awfukxvd04/27/25documented as of this encounter
--- OUTSIDE RECORDS SUMMARY | 2025-03-03 22:54 | XMS_ITS | Clinical Summary ---
Author Organization [facility] Address [address] [id number] Care Team Providers Care Event Coordinator Marketing And Sales Name Role Phone Phys, Self-Refer Or No Pcp/Referring Primary Car e Provider Unavailable Social History Tobacco UseTypesPacks/DayYears UsedDateSmoking Tobacco: Never AssessedSex and Gender InformationValueDate RecordedSex Assigned at BirthNot on fileLegal Sex Male11/09/2022 9:49 AM EDTGender IdentityNot on fileSexual OrientationNot on file Plan of Treatment Health MaintenanceDue DateLast DoneCommentsHepatitis C Trnuivooo46/25/1985 DTaP,Tdap,and Td Vaccines (1 - Tdap)06/29/2003Hepatitis B [...] Phys, Self-Refer Or No Pcp/Referring PCP - Qqkjbst95/11/24
--- OUTSIDE RECORDS SUMMARY | 2025-03-03 22:54 | XMS_ITS | Clinical Summary ---
Author Organization [facility] Address [address] [place] [address] Care Team Providers Care Media Liaison Officer Name Role Phone Munira Das MD Primary Care Provider [phone] Allergies Active AllergyReactionsCriticalityNoted DateCommentsBupropion EcnZsg2101/26/2022 Increased irritability and insomnia Food Allergy MinoohdBey86/14/2022 Watermelon, cantaloupe, honeydew Melon08/28/2021 Other reaction(s): Swelling of Lip/Tongue/Throat CgoydwKwl04/25/2022 Other reaction(s): Swelling of Lip/Tongue/Throat Medications MedicationSigDispense [...] by mouth in the morning.09/12/2022ctive Dexcom G4 [employer] (Dexcom G7 [employer]) misc 1 Device in the morning.05/10/2023ctive blood-glucose [...] in the morning.Active TRUEplus Lancets 33 gauge [facility] use 1 LANCET to TEST BLOOD SUGAR every dziiuoz4105/05/2023ctive loratadine-pseudoephedrine (Claritin-D 24-hour) 10-240 mg 24 hr tablet 1 tablet.08/28/2021ctive metoprolol succinate XL (Toprol-XL) 25 mg 24 hr tablet Take 25 mg by mouth in the morning.Active Droplet Pen Needle 31 gauge x 1/4 needle use 1 PEN NEEDLE to inject MEDICATION subcutaneously as axgilvnj77/04/2024ctive atorvastatin (Lipitor) 80 mg tablet Take 80 [...] with microalbuminuria, without long-term current use of iyvmfxi06Hyperlipidemia Tongue okfuqc25urrent moderate episode of major depressive hxvfayxl685915Rttpqvjuxoavautvtpq35/15/2023H/O heart artery stentost-procedural erectile dysfunction Overview (03/29/2023): 06/21/22: Erectile dysfunction after winter shunt. Could consider penile injection therapy or penileprosthesis. Acute kidney injury superimposed on CKD Overview (03/29/2023): Last Assessment & Plan: Last Assessment & Plan: History of primary agrbfxyfyovffcluzzc65/28/202301/24/2024History of type 2 diabetes hlevpmke17OSA (obstructive sleep apnea)05/31/2022 03/29/2023Multiple vessel coronary artery wbthiim98llergic qcvjcezx03nxietyHHNC (hyperglycemic hyperosmolar nonketotic coma)Morbid mdnadax6405/23/2022 03/29/2023NSTEMI (non-ST elevated myocardial infarction) Cerebrovascular accident (CVA)03/25/20224271Wtldlamc24/20/9616Awstx65/20/2023leural enjlggat26/20/2023CKD (chronic kidney disease), stage III12/07/2021 Overview (03/25/2022): 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 Baseline in 2079 was 0.8 peaked up to 2.[address] [facility] in August 2021. On discharge creatinine was down to 1.3. Urine sediment benign. Work-up for immune complex disease negative, paraprotein disease and vasculitis negative as well. Secondary to ischemic ATN from sepsis, septic shock, NSAIDs, Bactrim, vancomycin and contrast. Baseline in 2079 was 0.8 peaked up to 2.[address] [facility] in August 2021. On discharge creatinine was down to 1.3. Urine sediment benign. Work-up for immune complex disease negative, paraprotein disease and vasculitis negative as well. Acute pulmonary edema2Cerebral fhtaygim99/21/2022Cerebral septic emboli 11/24/20211250Oatrqknufzbqx80/21/2022 Overview (03/25/2022): With increased PTH but negative sestamibi scan PTH 141 calcium had gone up to 11.0, on discharge down to 8.6. With increased PTH but negative sestamibi scan PTH 141 calcium had gone up to 11.0, on discharge down to 8.6. Pericardial qkpaxmcs07/21/2022Rhinovirus osrqzdihg86/21/2022epsis due to Streptococcus species without acute organ zbepirpkeki00/21/2022taphylococcus aureus ungbympqa89/21/2022rimary spyrutgyqxbg49/26/2022 Overview (03/25/2022): Blood pressures running in the 140-150 systolic range Blood pressures running in the 140-150 systolic range Aafflsnfqe01/11/2022cute respiratory failure with mrrzbsu8008/29/2021ardiac kirxyneef53/26/2022riapism, ljshplfujak70/27/2016 Encounters DateTypeDepartmentCare MjxcKrdbmrmuckl72/11/2025 10:40 AM ESTFollow-Up [facility] at [address] [phone] [place] Crane Type 2 diabetes mellitus with hyperglycemia, with long-term current use of insulin ([facility]) (Primary Dx); Dyslipidemia; Hypertension, unspecified type12/13/2024Orders Only [facility] at [address] [phone] Jacob Crane Type 2 diabetes mellitus with hyperglycemia, with long-term current use of insulin ([facility])12/11/2024Telephone [facility] at [address] [phone] Jacob Crane Med Refillfrom Last 3 Months [...] hard at all02/20/2023HQ-2 AnswerDate RecordedPatient Health Questionnaire-2 Fddyw787UT Safety & EnvironmentAnswerDate RecordedWithin the last year, [...] file02/20/2023Sex and Gender InformationValueDate RecordedSex Assigned at IklmbDtco77/11/2025 10:14 AM EDTLegal TzwHvyt4109/15/2021 8:42 AM EDTGender EvxwyxsjJwpy76/11/2025 10:14 AM EDTSexual Orientation Heterosexual or Flwywghn93/11/2025 10:14 AM EDT Last Filed Vital Signs Vital SignReadingTime TakenCommentsBlood Ohsarnrj709/7202/13/2025 10:45 AM EST Guilk318902/13/2025 10:45 AM ETDYxzhcyydezd18.7 ??C (98.1 ??F)07/04/2023 2:38 PM EDTRespiratory Bbot033004/26/2022 4:11 PM ESTOxygen Jibpgdnzab76%02/13/2025 10:45 AM ESTInhaled Oxygen Concentration--Cabwmr222 kg (255 lb)02/13/2025 10:45 AM EST Lldalg297.6 cm (5' 4 )03/20/2024 10:56 AM ESTBody Mass Index43.77003/20/2024 10:56 AM EST Plan of Treatment DateTypeDepartmentCare Team (Latest Contact Info)Jkaxniukvml86/10/2026 10:00 AM EDTFollow-Up [facility] at [facility] [address] [place] [phone] [address] Crane [address] [facility] [address]. [place] [address] Health MaintenanceDue DateLast DoneCommentsDiabetes: Retinopathy Screening 1994Depression Kgqevejwm99/25/1997Varicella Vaccines (1 of 2 - 13+ 2-dose series)1997Hepatitis B Vaccines (1 of 3 - 19+ 3-dose series)06/29/2003 Pneumococcal Vaccine: Pediatrics (0 to 5 Years) and At-Risk Patients (6 to 64 Years) (1 of 2 - PCV)06/29/2003Adult Crvahzl8706/28/2006HPV Vaccines (1 - 3-dose SCDM series)06/29/2011Diabetes: Urine Protein Cyfrcyvpq00/08/2022, 03/29/2022, 2COVID-19 Vaccine ( - 2024- season)2024Diabetes: Hemoglobin A1C612/01/2025, 11/14/2024Zoster Vaccines (1 of 2)2034 Influenza KtunfstCphiwxuqu56/10/2025, 01/26/2024HIB VaccinesAged OutNo longer eligible based on [...] Procedures Procedure NamePriorityDate/TimeAssociated DiagnosisCommentsPOCT GLYCOSYLATED HEMOGLOBIN (HGB A1C)Bialxbd3202/13/2025 11:06 AM EST Type 2 diabetes mellitus with hyperglycemia, with long-term current use of insulin ([facility]) from Last 3 Months Results * (ABNORMAL) POCT glycosylated hemoglobin (Hb A1C) (02/13/2025 11:06 AM EST) ComponentValueRef RangeTest MethodAnalysis TimePerformed AtPathologist SignatureHemoglobin A1C6.6SOURCE:BloodLot Number#[id number] DATE#10/30Specimen (Source)Anatomical Location / LateralityCollection Method / VolumeCollection TimeReceived TimeBloodVenous blood specimen / Gatlrjm2602/13/2025 11:06 AM EST Narrative Authorizing ProviderResult TypeResult StatusJoCommunity Hospital of Gardena. JunPOINT OF CARE TEST ENTER/EDIT ORDERABLESEdited Result - Final from Last 3 Months Insurance Advance Directives * Full Code (Latest Code Status on File) Date ActivatedDate BzhryiwnknvYtpxucgt83/18/2023 8:44 AM02/23/2023 8:38 PM Care Teams Team MemberRelationshipSpecialtyStart DateEnd Date Munira Das MD PCP - GeneralFamily Gtvirefv42/14/22
--- OUTSIDE RECORDS SUMMARY | 2025-03-03 22:54 | XMS_ITS | Clinical Summary ---
Author Organization [facility] Address [address] [place] [address] Care Team Providers Care Motor Analyst Name Role Phone Unavailable Primary Care Provider [...] in the morning.12/06/2022ctive Active Problems ProblemNoted DateDiagnosed UobjAtqeourimnbt94/29/5013Worvxjryewolfj99/29/2024 Seasonal allergic /29/2024Tongue sbnlbb9303/30/2023VA (cerebral vascular accident)03/30/2023Myocardial gyplvviccb37/25/2024 Family History Medical HistoryRelationNameCommentsDiabetesMotherRelationNameStatusComments Mother Social History Tobacco UseTypesPacks/DayYears UsedDateSmoking Tobacco: FormerCigarettesQuit: mokeless Tobacco: FormerQuit: 2022 Tobacco Cessation:Counseling Given: Not Answered Alcohol UseStandard Drinks/WeekCommentsNot Currently0 (1 standard drink = 0.6 oz pure alcohol)Sex and Gender InformationValueDate RecordedSex Assigned at Not on fileLegal PqsQstd1203/29/2023 3:45 PM ESTGender IdentityNot on fileSexual OrientationNot on file Last Filed Vital Signs Vital SignReadingTime TakenCommentsBlood Tiioinpg949/9404/03/2023 8:10 AM EST Pulse--Temperature--Respiratory Rate--Oxygen Saturation--Inhaled Oxygen Concentration--Faktqr976 kg (302 lb)04/03/2023 8:10 AM KRUXdzhkx259.6 cm (5' 4 ) 04/03/2023 8:10 AM ESTBody Mass Index51.8404/03/2023 8:10 AM EST Plan of Treatment Not on file Medical Devices ImplantedTypeAreaManufacturerDevice IdentifierShelf Expiration DateModel / Serial / LotCoronary Drug Eluting Stent-07/25/2022 Implanted:Qty: 2 on 07/25/2022oronary Drug Eluting StentHeart Insurance
--- OUTSIDE RECORDS SUMMARY | 2025-03-03 22:54 | XMS_ITS | Clinical Summary ---
Author Organization [facility] Address [address], [address] [place] [address] Care Team Providers Care Rotary Machine Operator Name Role Phone Munira Das VOCATIONAL REHAB CONSULTANT - [facility] Primary Care Prov ider Allergies Active AllergyReactionsCriticalityNoted FziuIalhtceqSpeg48/29/2022 Watermelon, Honeydew, Cantelope Ggtibu6809/01/2021 Medications MedicationSigDispense QuantityRefillsLast FilledStart DateEnd DateStatus fluticasone [...] MG tablet Take 1 tablet by mouth yryqqud6303/08/2023ctive VRAYLAR 1.5 MG capsule Take 1 capsule by mouth every zitvxew3605/10/2023ctive LEVEMIR FLEXPEN 100 UNIT/ML injection pen Inject 10 Units into the skin kuuosnw6305/05/2023ctive TRUEplus Lancets 33G MIS use 1 LANCET to TEST BLOOD SUGAR every yufqnjj3305/05/2023ctive ARIPiprazole (ABILIFY) 5 MG tablet Take 1 tablet by mouth dailyActive BD PEN NEEDLE MICRO U/F 32G X 6 MM MISC USE DIRECTED SUBCUTANEOUSLY (UNDER THE SKIN) TWICE DAILY (IN THE MORNING AND AT BEDTIME)11/30/2023ctive DROPLET PEN NEEDLES 31G X 6 MM MISC use 1 PEN NEEDLE to inject MEDICATION subcutaneously DAILY as dgsloziw76/31/2024 Active VICTOZA 18 MG/3ML SOPN SC injection Inject 0.6 mg into the skin daily07/19/2023ctive FLUoxetine (PROZAC) 20 MG capsule Take 1 capsule by mouth every wzzvqkv4410/01/2023ctive metoprolol tartrate (LOPRESSOR) 25 MG tablet Take [...] 90 tablet Discontinued Active Problems ProblemNoted DateDiagnosed XxwrAasollxqyqao23/06/2024 Overview (04/11/2023): Post prathyroidectomy H/O heart artery stent09/27/2022S/P CABG (coronary artery bypass graft) 06/23/2022rimary ybnoqrbxjzxaniktuod73/28/2023 Overview (04/11/2023): S/p parathyroidectomy Mar 2023 at [facility] IAN (obstructive sleep apnea)05/31/2022History of type 2 diabetes mellitus 05/31/2022Multiple vessel coronary artery phsqmxr9505/27/2022NSTEMI (non-ST elevated myocardial infarction)05/23/2022Hypertensive oyknzl2305/23/2022Morbid dqcvdnw8205/23/20222862Ighftva85/20/2023llergic wunsxxmp51/20/2023HHNC (hyperglycemic hyperosmolar nonketotic coma)05/23/2022ersistent ibjgytmwdva35/04/2022 Overview (10/06/2022): ACR 1300, UPC 0.9 10/06/2022: [...] g in October 2022. Kidney biopsy from [facility] 10/21/22, reviewed. 70 glomeruli assessed 13 were obsolescent. 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 Immunofluorescence negative, no inflammatory changes, no endocapillary or extra capillary proliferation. Pathologist feels the kidneys appears end-stage Dilated inxeedgyorevzl58/26/2022 Overview (09/28/2021): Ejection fraction 30% compensated CHF Essential kixoxmlnjlqw07/26/2022 Overview (09/28/2021): Blood pressures running in the 140-150 systolic range Lqthedgghe92/11/2022Cardiac ayawkzfqz41/26/2022cute respiratory failure with wfmlsan7408/29/2021riapism, ccyrwqfckbt18/27/2016Acute heart failureAcute pulmonary edemaPericardial effusion with cardiac [...] 8.6. Cerebral embolismCerebrovascular accident (CVA) Encounters DateTypeDepartmentCare PduiCbnkavywpwn27/02/2025Refill [place] [facility] [place] [address], [address] [place] [address] Harsh Esquivel MD Medication Qwiwgb4401/21/2025Refill [place] [facility] [place] [address], [address] [place] [address] Harsh Esquivel MD Medication Xhzfjx5401/21/2025Refill [place] [facility] [place] [address], [address] [place] [address] Harsh Esquivel MD Medication Refillfrom Last 3 Months Family History Medical HistoryRelationNameCommentsHeart DiseaseFatherRelationNameStatusComments Father Social History Tobacco UseTypesPacks/DayYears UsedDateSmoking Tobacco: FormerCigarettes0.917.5 09/13/2006 - 09/13/2021mokeless Tobacco: FormerSnuffQuit: 10/20/2019 Tobacco Cessation:Counseling Given: Not Answered Alcohol UseStandard Drinks/WeekCommentsYes0 (1 standard drink = 0.6 oz pure alcohol)sociallyInterpersonal Safety Domain Source: IP Abuse ScreeningAnswerDate RecordedRead-Only, Retired: Physical PybazYgnbdw26/22/2023Read-Only, Retired: Verbal FljhiOuskhl28/22/2023Read-Only, Retired: Emotional ngxkfUbwdeh15/22/2023 Read-Only, Retired: Financial NprqcIowrvs02/22/2023Read-Only, Retired: Sexual vnhwrQkfewv11/22/2023Sex and Gender InformationValueDate RecordedSex Assigned at BirthNot on fileLegal TopCebb54/27/2016 1:53 AM ESTGender IdentityNot on file Sexual OrientationNot on file Last Filed Vital Signs Vital SignReadingTime TakenCommentsBlood Uwzsuppx714/7201/09/2024 11:41 AM EST Aaudu3334/07/2025 11:41 AM CEHOxlqhovuisf52 ??C (96.8 ??F)10/21/2022 3:00 PM EDT Respiratory Oiyc1451 9:31 AM EDTOxygen Uveruqxcbn73%12/14/2023 9:31 AM EDTInhaled Oxygen Concentration--Qwsetn343.2 kg (287 lb)03/12/2024 11:41 AM EST Hgyira984.6 cm (5' 4 )12/14/2023 9:31 AM EDTBody Mass Index49.261 9:31 AM EDT Plan of Treatment DateTypeDepartmentCare Team (Latest Contact Info)Gcewhexrbtc42/27/2026 9:00 AM ESTOffice Visit [place] [facility] - [address] [address] Harsh Esquivel MD [address] [facility] [facility] [address] [place] [id number] f/uHealth MaintenanceDue DateLast DoneCommentsDiabetic foot exam1994 Depression Oejiwh6206/28/1996Varicella vaccine (1 of 2 - 13+ 2-dose series) 1997Diabetic retinal exam2002DTaP/Tdap/Td vaccine (1 - Tdap) 06/29/2003Hepatitis B vaccine (1 of 3 - 19+ 3-dose series)06/29/2003Pneumococcal 0-49 years Vaccine (1 of 2 - PCV)06/29/2003Diabetic Alb to Cr ratio (uACR) test 406/4676Z3X test (Diabetic or Prediabetic)409/07/2022, 05/30/2022, 05/23/20224588Medytk30/18/836376, 05/24/2022, 3GFR test (Diabetes, CKD 3-4, OR last GFR 15-59)507/04/2023, 07/04/2023, 05/31/2023, Additional history existsFlu vaccine (#1)10/04/2024OVID-19 Vaccine ( season)2024Hepatitis C gomvwsSrzcqjngo38/30/2022HIV screen Xpiyeybui30/01/2022Diabetes oshhnkOyepfiduyssq16/05/2023, 05/30/2022, 05/23/2022 HPV vaccine (No Doses Required)CompletedHepatitis [...] Grv [place] Shp W/ Precis Tip - [id number] Implanted:Qty: 1 on 05/31/2022 [id number] / / Device Strnl Clsr Multiimplant Strnlock 360 - [id number] Implanted:Qty: 1 on 06/02/2022 [facility]: SternumZIMMER [employer]-[id number] / / [id number] Bne L12mm Dia2.4mm G Canc Ti Self Drl Kinjal Full Thrd - [id number] Implanted:Qty: 4 on 06/02/2022 [facility] SternumZIMMER [employer] MICROFIXATION-[id number] / / Screw Bne L14mm Dia2.4mm G Canc Ti Self Drl Kinjal Full Thrd - [id number] Implanted:Qty: 12 on 06/02/2022 [facility] SternumZIMMER [employer] MICROFIXATION-[id number] / / Screw Bne L18mm Dia2.4mm G Canc Self Drl Kinjal Full Thrd - [id number] Implanted:Qty: 4 on 06/02/2022 [facility] SternumZIMMER [employer]ET MICROFIXATION-[id number] / / Plate Bne 4 H Bx Shp Sternalock Redd Marina Clsr Sys - [id number] Implanted:Qty: 1 on 06/02/2022 [facility] SternumZIMMER [employer] MICROFIXATION-[id number] / / Procedures Procedure NamePriorityDate/TimeAssociated DiagnosisCommentsBASIC METABOLIC PANEL Lezvghq5309/05/2023 12:59 PM EDT Stage 3b chronic kidney disease (HCC) Hypercalcemia Hyperparathyroidism Persistent proteinuria Type 2 diabetes mellitus with other specified complication, without long-term current use of insulin (HCC) LIPID SOYFRGxwmmzi82/18/2023 12:33 PM EDT CAD in [place] artery HEMOGLOBIN R6GVohpwxz47/05/2023 11:58 AM EDT Stage 3b chronic kidney disease (HCC) Hypercalcemia Persistent proteinuria Hyperparathyroidism Primary hypertension Type 2 diabetes mellitus with other specified complication, without long-term current use of insulin (HCC) MICROALBUMIN, DXRzougds42/06/2023 2:00 PM EDT HIV YGPDBDSqhdiil43/01/2022 4:51 PM EDT HEPATITIS PANEL, DCTCSCzynsdc45/30/2022 12:25 PM EDT from Last 3 Months or Most Recently Relevant to Health Maintenance Results * (ABNORMAL) Basic Metabolic Panel (09/05/2023 12:59 PM EDT)ComponentValueRef RangeTest MethodAnalysis TimePerformed AtPathologist OotvndoajGsfiax110124 - 144 mmol/L09/05/2023 12:59 PM [facility] LABPotassium4.8 3.7 - 5.3 mmol/L09/05/2023 12:59 PM [facility] Raiztmww71556 - 107 mmol/L09/05/2023 12:59 PM [facility] WOVNF67862 - 31 mmol/L09/05/2023 12:59 PM [facility] Anion Wjr678 - 17 mmol/L09/05/2023 12:59 PM [facility] GEQJurxkfn403(H)70 - 99 mg/dL09/05/2023 12:59 PM [facility] OFLLZG03(H)6 - 20 mg/dL09/05/2023 12:59 PM [facility] LABCreatinine2.0(H)0.7 - 1.2 mg/dL09/05/2023 12:59 PM [facility] LABEst, Glom Filt Rate43(L)>60 mL/min/1.35z47309/05/2023 12:59 PM [facility] LABComment: ? These results are [...] therapy that affects renal tubular secretion. BUN/Creatinine Zwrvk722 - 12:59 PM [facility] LABCalcium9.58.6 - 10.4 mg/dL09/05/2023 12:59 PM [facility] LABSpecimen (Source)Anatomical Location / LateralityCollection Method / Volume Collection TimeReceived TimeBloodBLOOD SPECIMEN / Qnizxiy9509/05/2023 12:59 PM EDT 09/05/2023 1:00 PM EDT Narrative Authorizing ProviderResult TypeResult StatusBalhinder S Maggie MDCHEMISTRY ORDERABLESFinal ResultPerforming OrganizationAddressCity/State/ZIP CodePhone Number [facility] [address] [place] [address], [facility] [phone] * (ABNORMAL) Lipid Panel (12/21/2022 12:33 PM EDT)ComponentValueRef RangeTest MethodAnalysis TimePerformed AtPathologist WfbvgubyhQcxonfhedqh646(H)<200 mg/dL12/21/2022 12:33 PM EDTMERCY LABORATORIESComment: Cholesterol Guidelines: <200 Desirable 200-240 ??Borderline >240 Undesirable HDL44>40 mg/dL12/21/2022 12:33 PM EDTMERCY LABORATORIESComment: HDL Guidelines: <40 Undesirable 40-59 ?Borderline >59 Desirable LDL Fbyteaqvvot3475 - 130 mg/dL12/21/2022 12:33 PM EDTMERCY LABORATORIESComment: LDL Guidelines: <100 Desirable 100-129 ?? Near to/above Desirable 130-159 ?? Borderline >159 Undesirable Direct (measured) LDL and calculated LDL are not interchangeable tests. Chol/HDL Ratio4.9< 12:33 PM EDTMERCY LABORATORIESComment: Ftxjmcucrmjtl178(H)<150 mg/dL12/21/2022 12:33 PM EDTMERCY LABORATORIESComment: Triglyceride Guidelines: <150 Desirable 150-199 ??Borderline 200-499 ??High >499 Very high Based on AHA Guidelines for fasting triglyceride, December 2011. Specimen (Source)Anatomical Location / LateralityCollection Method / Volume Collection TimeReceived TimeBloodBLOOD SPECIMEN / Xbqtlzy8512/21/2022 12:33 PM EDT 12/21/2022 12:34 PM EDT Narrative Authorizing ProviderResult TypeResult StatusMohammed Taleb MDCHEMISTRY ORDERABLESFinal ResultPerforming OrganizationAddressCity/State/ZIP CodePhone Number [facility] [address] [place] [address], [facility] [phone] [phone] * Hemoglobin A1C (11/08/2022 11:58 AM EDT)ComponentValueRef RangeTest Method Analysis TimePerformed AtPathologist SignatureHemoglobin A1C5.24.0 - 6.0 % 11/08/2022 11:58 AM EDTMERCY LABORATORIESEstimated Avg Aacdbbs624ub/dL 11/08/2022 11:58 AM EDTMERCY LABORATORIESComment: The ADA and AACC recommend providing the estimated average glucose result to permit better patient understanding of their HBA1c result. Specimen (Source)Anatomical Location / LateralityCollection Method / Volume Collection TimeReceived TimeBLOOD SPECIMEN / Nvuobvu5811/08/2022 11:58 AM EDT 11/08/2022 11:59 AM EDT Narrative Authorizing ProviderResult TypeResult StatusMartin Serrano MDCHEMISTRY ORDERABLESFinal ResultPerforming OrganizationAddressCity/State/ZIP CodePhone Number [facility] [address] [place] [address], [facility] [phone] [place] [address], [facility] [phone] * (ABNORMAL) Microalbumin, Ur (08/09/2022 2:00 PM EDT)ComponentValueRef Range Test MethodAnalysis TimePerformed AtPathologist SignatureAlbumin Gxarl941(H) <21 mg/L08/09/2022 2:00 PM EDTMERCY LABORATORIESCreatinine, Ur66.339.0 - 259.0 mg/dL08/09/2022 2:00 PM EDTMERCY LABORATORIESMicroalb/Station Baggage Porter. Msict073(H)<17 mcg/mg creat08/09/2022 2:00 PM EDTMERCY LABORATORIESSpecimen (Source) Anatomical Location / LateralityCollection Method / VolumeCollection Time Received Time08/09/2022 2:00 PM EDT08/09/2022 3:02 PM EDT Narrative Authorizing ProviderResult TypeResult Patria Serrano MDURINE ORDERABLES Final ResultPerforming OrganizationAddressCity/State/ZIP CodePhone Number [facility] [address] [place] [address], [facility] [phone] [place] [address], [facility] [phone] * HIV Screen (09/03/2021 4:51 PM EDT)ComponentValueRef RangeTest MethodAnalysis TimePerformed AtPathologist SignatureHIV Ag/PnIJTKPRTSEXTGNODSPINZCQ10/01/2022 4:51 PM EDTMERCY LABORATORIESComment: No laboratory evidence of HIV infection. ??If acute HIV infection is suspected, consider testing for HIV-1 RNA. Specimen (Source)Anatomical Location / LateralityCollection Method / Volume Collection TimeReceived TimeBLOOD SPECIMEN / Ahtljwg0209/03/2021 4:51 PM EDT 09/03/2021 5:05 PM EDT Narrative Authorizing ProviderResult TypeResult StatusRaeffie Cervantes MDIMMUNOLOGY ORDERABLES Final ResultPerforming OrganizationAddressCity/State/ZIP CodePhone Number [email or web address] [address] [place] [address], [facility] [phone] * Hepatitis Panel, Acute (09/02/2021 12:25 PM EDT)ComponentValueRef RangeTest MethodAnalysis TimePerformed AtPathologist SignatureHepatitis B Surface Ag ZQEZGRZKWEFQPQFTANDJDF54/30/2022 12:25 PM EDTMERCY LABORATORIESHepatitis C Ab NSJVYKGAPZRHAPGPNQJVGR79/30/2022 12:25 PM EDTMERCY LABORATORIESComment: ? The hepatitis [...] RNA by PCR. Hep B Core Ab, LcZFBFCRCFSHQEYMYHTLROPUV63/30/2022 12:25 PM EDTMERCY LABORATORIESHep A EnSKRHAENWKCGFCZHPZEYOFUJ82/30/2022 12:25 PM EDTMERCY LABORATORIESSpecimen (Source)Anatomical Location / LateralityCollection Method / VolumeCollection TimeReceived TimeBLOOD SPECIMEN / Ndchyun1209/02/2021 12:25 PM EDT09/02/2021 12:40 PM EDT Narrative Authorizing ProviderResult TypeResult StatusMartin Serrano MDIMMUNOLOGY ORDERABLESFinal ResultPerforming OrganizationAddressty/State/ZIP CodePhone Number [employer] [address] [place] [address], [facility] [phone] from Last 3 Months or Most Recently [...] Teams Team MemberRelationshipSpecialtyStart DateEnd Date Munira Das, VOCATIONAL REHAB CONSULTANT - DANCE MASTER [facility]12/09/21
--- OUTSIDE RECORDS SUMMARY | 2025-03-03 22:54 | XMS_ITS | Clinical Summary ---
Author Organization [facility] Address [id number] [address] [place] [address] Care Team Providers Care Theater Manager Name Role Phone Luis Felipe Buckner APRN-STRIPPING SHOVEL OPERATOR Primary Care Provider + Allergies Active AllergyReactionsCriticalityNoted DateCommentsFood Allergy Formula 09/01/2021 Watermelon, Honeydew, Cantelope YsberqNka90/29/2022upropion IplDkm1101/26/2022 Increased irritability and insomnia Medications MedicationSigDispense QuantityRefillsLast FilledStart DateEnd DateStatus fluticasone propionate (FLONASE) 50 mcg/actuation nasal spray Indications:Seasonal allergic rhinitis due to pollenAdminister 2 sprays into each nostril in the morning. 15.8 mL ctive EYE ITCH RELIEF 0.025 % (0.035 %) ophthalmic solution INSTILL 1 DROP INTO BOTH EYES TWICE A DAY KDDNNKTR19/21/2022ctive aspirin 81 mg Take 1 tablet (81 [...] Indications:Uncontrolled type 2 diabetes mellitus with hyperglycemia ([facility]) Monitor blood sugars twice daily 60 strip ctive lancets (accu-chek soft touch) [facility] Indications:Uncontrolled type 2 diabetes mellitus with hyperglycemia ([facility]) Monitor blood sugars twice daily 100 each ctive Additional Information Patient not taking.Reported on 12/30/2024 blood-glucose meter (glucose monitoring kit) kit Indications:Uncontrolled type 2 diabetes mellitus with hyperglycemia ([facility]) Use as instructed 1 each 07/12/2022ctive alcohol swabs (ALCOHOL PREP PADS) pads, medicated Indications:Uncontrolled type 2 diabetes mellitus with hyperglycemia ([facility]) Apply 1 Pad topically in the morning and at bedtime. 100 each ctive lancets (TRUEPLUS LANCETS) 33 gauge [facility] 1 Lancet by miscellaneous route in the morning. 90 each ctive blood-glucose sensor (DEXCOM G7 SENSOR) device Indications:Uncontrolled type 2 diabetes mellitus with hyperglycemia ([facility])1 each by miscellaneous route every 10 days.05/10/2023ctive blood-glucose meter,continuous (DEXCOM G7 MORTGAGE BROKER) [facility] Indications:Uncontrolled type 2 diabetes mellitus with hyperglycemia ([facility])1 Device by miscellaneous route in the evening.05/10/2023ctive BD ULTRA-FINE MICRO PEN NEEDLE 32 gauge x 1/4 needle 01/18/2024ctive insulin glargine (LANTUS SOLOSTAR U-100 INSULIN) 100 unit/mL (3 mL) insulin pen Indications:Uncontrolled type 2 diabetes mellitus with hyperglycemia ([facility]) Inject 80 Units under the skin nightly. 15 mL 605Active dapagliflozin propanediol (FARXIGA) 10 mg tablet Indications:Type 2 diabetes mellitus with stage 3 chronic kidney disease and hypertension ([facility])take 1 tablet by mouth every morning 90 tablet 5Active dulaglutide (TRULICITY) 1.5 mg/0.5 mL pen injector Indications:Type 2 diabetes mellitus with microalbuminuria, without long-term current use of insulin ([facility])Inject 1.5 mg under the skin every 7 [...] with microalbuminuria, without long-term current use of lfquwoh7505/05/2023Tongue osbqjr2903/30/2023urrent moderate episode of major depressive xynbsrqg82/23/2024Hyperparathyroidism 11/18/2022Renal cyst06/21/2022 Overview (06/21/2022): 06/21/22: Probable renal cyst 1st detected 2021 on right on ultrasound. Suggested of this on MRI without contrast. Most recent renal ultrasound also suggests probable renal cyst. Definitive testing with MRI with without contrast will confirm. Post-procedural erectile usdrevohzjb09/18/2023 Overview (06/21/2022): 06/21/22: Erectile dysfunction after winter shunt. Could consider penile injection therapy or penileprosthesis. Acute kidney injury superimposed on CKD/02/2023 Overview (06/15/2022): Last Assessment & Plan: IAN (obstructive sleep apnea)/rimary hyperparathyroidism 05/31/2022 Overview (04/19/2023): S/p parathyroidectomy Mar 2023 at [facility] Multiple vessel coronary artery noseokg78/02/2023HHNC (hyperglycemic hyperosmolar nonketotic coma)Morbid eqyyeny9405/23/2022 06/15/2022NSTEMI (non-ST elevated myocardial infarction)/02/2023 Hypertensive eljzcv57ersistent pqukdkndjcp18/04/2022 Overview (01/18/2022): ACR 1300, UPC 0.9 CKD [...] g in October 2022. Kidney biopsy from [facility] 10/21/22, reviewed. 70 glomeruli assessed 13 were obsolescent. 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 Immunofluorescence negative, no inflammatory changes, no endocapillary or extra capillary proliferation. Pathologist feels the kidneys appears end-stage Acute heart dfplolx5011/24/2021cute kidney aqajlo7011/24/2021 Overview (11/24/2021): Secondary to ischemic ATN from sepsis, septic shock, NSAIDs, Bactrim, vancomycin and contrast. Baseline in 2079 was 0.8 peaked up to 2.[address] [facility] in August 2021. On discharge creatinine was down to 1.3. Urine sediment benign. Work-up for immune complex disease negative, paraprotein disease and vasculitis negative as well. Acute pulmonary edema11/24/2021erebral flmeszsj23/21/2022erebral septic emboli 11/24/20210640Yyigarqxxpncy66/21/2022 Overview (11/24/2021): With increased PTH but negative sestamibi scan PTH 141 calcium had gone up to 11.0, on discharge down to 8.6. Pericardial ruvpnbcg38/21/2022hinovirus ygkapqier43/21/2022epsis due to Streptococcus species without acute organ abrrdpymhks33/21/2022taphylococcus aureus /21/2022ilated xpnagnhvjmnloh61/26/2022 Overview (11/24/2021): Ejection fraction 30% compensated CHF Primary epnbymvipebp44/26/2022 Overview (11/24/2021): Blood pressures running in the 140-150 systolic range Yhcerormjw21/11/2022cute respiratory failure with sfzedxj8008/29/2021ardiac sfffhbemc30/26/2022riapism, /27/2016 Encounters DateTypeDepartmentCare EtpyRrjbmtlgcfv34/18/2025Refill [facility] [address] [place] [address] Vivien Rooney CMA Seasonal allergic rhinitis due to wbofgo2101/02/2025Refill [facility] [address] [place] [address] Princess Girer CMA Anxiety and uoiezqiefu19/29/2025Results Follow-Up [facility] [address] [place] [address] Luis Felipe Buckner, KENNETH-JOSE Trichomonas by PCR, Chlamydia/Gonorrhoeae by PCR, Urine12/30/2024 2:15 PM EDT [facility] [address] [place] [address] Luis Felipe Buckner, KENNETH-JOSE Screen for STD (sexually transmitted disease) (Primary Dx); Type 2 diabetes mellitus with stage 3 chronic kidney disease and hypertension ([facility]); Primary hypertension; Loose stools; Moderate episode of recurrent major depressive disorder ([facility]); Class 3 severe obesity due to excess calories with serious comorbidity and body mass index (BMI) of40.0 to 44.9 in adult ([facility])12/30/20244858Ehwcqj62/26/2025 Qvmxfx7112/24/2024Refill [facility] [address] [place] [address] Jacob Cochran, DO Mixed hyperlipidemiafrom Last 3 [...] friends or relatives?Never01/26/2022How often do you attend denominational or hinduism services?Never2Do you belong to any clubs or organizations such as denominational groups, unions, fraternal or athletic groups, or school groups?No 01/26/2022How often do you attend meetings of the clubs or organizations you belong to?Never01/26/2022re you , , , , never , or living with a partner?Living with iqihapa5001/26/2022UDIT-CAnswerDate RecordedQ1: How often do you have a [...] medical care, and heating?Not very hard06/10/2024PHQ-2AnswerDate RecordedTotal Wvfwx862Finhighland [facility] - Occupational Stress QuestionnaireAnswerDate RecordedDo you feel stress - tense, restless, nervous, or anxious, or unable to sleep at night because yourmind is troubled all the time - these days?To some wckhhy0301/26/2022Exercise Vital Sign AnswerDate RecordedOn average, how many [...] of a household?No06/10/2024hildcareAnswerDate RecordedDo problems getting child care assistant make it difficult for you to work [...] have received?Associate degree: occupational, technical, or vocational ojnlcsn2501/26/2022ex and Gender InformationValueDate RecordedSex Assigned at BirthNot on fileLegal SexMale 10/09/2014 12:04 PM EDTGender IdentityNot on fileSexual OrientationNot on file Last Filed Vital Signs Vital SignReadingTime TakenCommentsBlood Ztgdeges914/8212/30/2024 2:25 PM EDT Cvacf524012/30/2024 2:25 PM PNBFarvmlzuecf21.1 ??C (97 ??F)12/30/2024 2:25 PM EDT Respiratory Gwtu0944 2:25 PM EDTOxygen Gtokcbiplh30%12/30/2024 2:25 PM EDTInhaled Oxygen Concentration--Rettni934.6 kg (263 lb 9.6 oz)12/30/2024 2:25 PM CNLKyloyj515.1 cm (5' 5 )12/30/2024 2:25 PM EDTBody Mass Index43.8712/30/2024 2:25 PM EDT Plan of Treatment DateTypeDepartmentCare Team (Latest Contact Info)Lxbwxskdxhy04/27/2026 4:00 PM EDTOffice Visit [facility] [address] [place] [address] Luis Felipe Buckner, DEEP FRYER ASSEMBLER-STRIPPING SHOVEL OPERATOR [address] [place] [address] Health MaintenanceDue DateLast DoneCommentsDiabetic Ophthalmology Exam1984 DTaP,Tdap and Td Vaccines (1 - Tdap)06/29/2003Influenza Fzrnwbn0711/04/2024 01/26/2024iabetic Foot Exam/, 09/12/2022dult BMI Follow Up PlanStatin Use: Mprvqrzfppswfx86/21/202610/Statin Use: Jerxpbfm76/dult BMI Kwmgjnkhv88/ Depression Gtjfhmcte95/Tobacco Nnazzyghn53 Medical Devices Not on file Procedures Procedure NamePriorityDate/TimeAssociated DiagnosisCommentsCHLAMYDIA/GONORRHOEAE BY PCR, HPAVXFawyoxs94/27/2025 2:56 PM EDT Screen for STD (sexually transmitted disease) TRICHOMONAS BY ZHUCutbrur88/27/2025 2:56 PM EDT Screen for STD (sexually transmitted disease) from Last 3 Months Results * Chlamydia/Gonorrhoeae by PCR, Urine (12/30/2024 2:56 PM EDT)ComponentValueRef RangeTest MethodAnalysis TimePerformed AtPathologist SignatureGONORRHOEAE PCR, AMhavudaiYjkwavtb40/28/2025 11:44 AM [facility] Comment:Neisseria gonorrhoeae not detected by nucleic acid amplification. This does not exclude the possibility of infection because results are dependent on adequate specimen collection.CHLAMYDIA PCR, VGpiexhnlQtjqfplw35/28/2025 11:44 AM [facility]:Chlamydia trachomatis not detected by nucleic acid amplification. This does not exclude the possibility of infection because results are dependent on adequate specimen collection. Specimen (Source)Anatomical Location / LateralityCollection Method / Volume Collection TimeReceived TimeUrineUrine / Zpxoqyc1312/30/2024 2:56 PM EDT 12/30/2024 2:56 PM EDT Narrative Authorizing ProviderResult TypeResult StatusLuis Felipe Buckner APRN-CNPMICROBIOLOGY - GENERAL ORDERABLESFinal ResultPerforming OrganizationAddressCity/State/ZIP CodePhone Number [facility] [address] [place] [address], * Trichomonas by PCR (12/30/2024 2:56 PM EDT)ComponentValueRef RangeTest Method Analysis TimePerformed AtPathologist SignatureTRICHOMONAS PCRNot DetectedNot Bqbqcmbu46/27/2025 10:26 PM EDTTOLECHERRY COUNTY HOSPITAL LABORATORYComment: Trichomonas vaginalis not detected. Assay methodology is nucleic acid amplification by real-time PCR for detection of Trichomonas vaginalis DNA performed on [employer] Instrument System. Specimen (Source)Anatomical Location / LateralityCollection Method / Volume Collection TimeReceived TimeUrineUrine / Kxopsbg4612/30/2024 2:56 PM EDT1 2:56 PM EDT Narrative Authorizing ProviderResult TypeResult StatusLuis Felipe Buckner APRN-CNPMICROBIOLOGY - GENERAL ORDERABLESFinal ResultPerforming OrganizationAddressCity/State/ZIP CodePhone Number [facility] [address] [place] [address], from Last 3 Months Insurance Care Teams Team MemberRelationshipSpecialtyStart DateEnd Date Luis Felipe Buckner APRN-STRIPPING SHOVEL OPERATOR [address] [facility] [place] [address] (work) PCP - GeneralInternal Deyybrah90/27/25
--- OUTSIDE RECORDS SUMMARY | 2025-03-03 22:57 | XMS_ITS | CCD ---
Author Organization [facility] Care Team Providers Care Custodial Manager Name Role Phone NO FAMILY, PHYSICIAN Primary [...] Consulting Unavailable LION ZHU Consulting Unavailable Thiago INDUSTRI[employer] COOK - SEAM FELLER, Jose Alonso Primary Care Prov ider Thiago [employer] - SEAM FELLER, Jose Alonso Primary Care Prov ider ARIEL PURDY Attending Unavailable MAGUI DAVIS Consulting Unavailable JOSE KHANNA Primary Care Unavailable RAUL PARSONS Referring Unavailable ARIEL PURDY Admitting Unavailable SHARDA SOLITARIO Consulting Unavailable ARIEL PURDY Consulting Unavailable MAGUI DAVIS Referring Unavailable JOSE KHANNA Primary Care Unavailable JOSE KAHNNA Primary Care Unavailable MAGGIE, BALHINDER S Referring [...] Unavailable JOSE KHANNA Primary Care Unavailable Khanna INDUSTRIAL COOK-SEAM FELLER, Jose J Primary Care Provid er PRATEEK ESQUIVEL Referring Unavailable KHANNA, JOSE J Primary Care Unavailable KHANNA, JOSE J Primary Care Unavailable ROSLYN BLANCAS Attending Unavailable KHANNA, JOSE J Referring Unavailable KHANNA, JOSE J Primary Care Unavailable Khanna INDUSTRIAL COOK-JOSE, Jose J Primary Care Provid er Unavailable [...] OnsetReaction(s) Facility (3 sources)Melon; Translations: [melon]Allergy to kryplzxqw13-20-9497Ikjcgxnl [facility] ([facility])tomato allergenic extract; Translations: [tomato]Drug Allergy 74-02-0341Fmkcgijj of [facility]Mary[facility] (20 sources)FOODPropensity to adverse reactions to gixn16-50-6375ZTN [facility] (20 sources)buPROPion; Translations: [BUPROPION HCL]Drug Cwbgdjh32-58-4459 [facility] Work Phone: (20 sources)Food Allergy Formula; Translations: [FOOD ALLERGY FORMULA]Propensity to adverse reactions to eyqi31-20-5892[facility] Medications Current Medications MedicationDrug Class(es)DatesSig (Normalized)Sig (Original)acetaminophen 325 mg / oxyCODONE hydrochloride 5 mg oral tablet (2 sources)Opioid AgonistStart: 06-06-2022 End: 28-16-3623Sgkfd: 02-02-2016 End: 38-04-5411228 ml albumin human, correction 50 mg/ml injection (2 sources)Human Serum AlbuminStart: 31-17-485520 g, IntraVENous, at 500 mL/hr, Administer over 60 Minutes, PRN, Other, PAD below goal and Low CI and/or Low BP and /or Low urine output per hemodynamic goals, Starting on Kathy 06/02/22 at 1824 Up to a max of 2000 mL. Notify surgeon for further orders if max volume infused. Post-opStart: 64-97-377550 g, IntraVENous, PRN, Starting on Kathy 06/02/22 [...] oral tablet (15 sources)Atypical AntipsychoticStart: 09-12-2022 End: 98-76-6109tmji 1 tablet by mouth in the morningARIPiprazole (ABILIFY) 5 mg tablet Indications: Mixed anxiety and depressive disorder Take 1 tablet(5 mg total) by mouth in the morning. 90 tablet 1 03/08/2023 Activeaspirin 81 mg delayed release oral tablet (20 sources)Platelet Aggregation Inhibitor, Nonsteroidal Anti-inflammatory Drug Start: 51-83-3396jgsn 1 tablet by mouth in the morningaspirin 81 mg Take 1 tablet (81 mg total) by mouth in the morning. 06/07/2022 ActiveStart: 05-24-2022 End: 06-45-9246lfti 1 dose by mouth once81 mg, Oral, ONCE, 1 dose, On Kathy 06/02/22 at 2115atorvastatin 80 mg oral tablet (20 sources)HMG-CoA Reductase InhibitorStart: 01-01-2024 End: 61-55-4494zoug 1 tablet by mouth once dailyatorvastatin (LIPITOR) 80 mg tablet Indications: Mixed hyperlipidemia TAKE 1 TABLET BY MOUTH NIGHTLY 90 tablet 12/24/2024 ActiveStart: 12-19-2022 End: 52-99-5550hvno 1 tablet by mouth once dailyatorvastatin (LIPITOR) 80 mg tablet Indications: Mixed hyperlipidemia Take 1 tablet (80 mg total) by mouth nightly. 90 tablet 2 11/23/2023 ActiveStart: 95-18-7160sido 1 tablet by mouth once dailyatorvastatin (LIPITOR) 20 MG tablet Take 1 tablet by mouth nightly 30 tablet 3 06/30/2022 ActiveStart: 27-39-2209Uslid: 11-19-4415xzta 20 mg by mouth once daily20 mg, Oral, NIGHTLY, First dose on Mon06/03/22 at 2100, Until Discontinued Please hold for elevated liver function enzymes Post-opStart: 05-23-2022 End: 45-74-4794zjgj 80 mg by mouth once daily80 mg, Oral, NIGHTLY, First dose on Mon05/23/22 at 2100, Until Discontinuedblood-glucose meter (glucose monitoring kit) kit (20 sources)Start: 08-81-9300elvqs-glucose meter (glucose monitoring kit) kit Indications: Uncontrolled type 2 diabetes mellituswith hyperglycemia (CMS-HCC) Use as instructed 1 each 07/12/2022 ActiveStart: 33-07-2832sapah-glucose meter (glucose monitoring kit) kit Indications: Uncontrolled type 2 diabetes mellitus with hyperglycemia (CMS-HCC) Use as instructed 1 each 0 07/12/2022 Activeblood- glucose meter,continuous (DEXCOM G7 APPARATUS OPERATOR) misc (20 sources)Start: 77-72-4418xtnqz-glucose meter,continuous (DEXCOM G7 APPARATUS OPERATOR) misc Indications: Uncontrolled type 2 diabetes mellitus with hyperglycemia (CMS- HCC) 1 Device by miscellaneous route in the evening. 05/10/2023 ActiveStart: 60-07-1925vhwnt-glucose meter,continuous (DEXCOM G7 APPARATUS OPERATOR) misc Indications: Uncontrolled type 2 diabetes mellitus with hyperglycemia (CMS-HCC) 1 Device by miscellaneous route in the evening. 0 05/10/2023 Activeblood-glucose sensor (DEXCOM G7 SENSOR) device (20 sources)Start: 71-50-1934etcom-glucose sensor (DEXCOM G7 SENSOR) device Indications: Uncontrolled type 2 diabetes mellitus with hyperglycemia (CMS-HCC) 1 each by miscellaneous route every 10 days. 05/10/2023 ActiveStart: 05-10-2023 blood-glucose sensor (DEXCOM G7 SENSOR) device Indications: Uncontrolled type 2 diabetes mellitus with hyperglycemia (CMS-HCC) 1 each by miscellaneous route every 10 days. 0 05/10/2023 Activecalcium carbonate 500 mg chewable tablet (5 sources)Start: 04-11-2023 End: 04-30-4103iokpphi carbonate (ANTACID, CALCIUM CARBONATE,) 200 mg elemental (500 mg) chewable tablet Chew 5 tablets (1,000 mg total) and swallow. 0 04/11/2023 05/11/2023 ActiveStart: 05-28-2022 End: 67-12-9319iqvv 500 mg by mouth three times daily as needed for gastroesophageal reflux ofnswzn308 mg, Oral, 3 TIMES DAILY PRN, Starting on 05/28/22 at 1517, Until Kathy 06/02/22 at 1824, Heartburncalcium carbonate 1250 mg / cholecalciferol 200 unt oral tablet (12 sources)Vitamin DStart: 42-48-9840vieu 2 tablets by mouth in the morning, then take 2 tablets by mouth once in the evening, then take2 tablets by mouth at bedtimeCalcium Carb-Cholecalciferol (Oyster Shell Calcium w/D) 500-5 MG-MCG tablet Take 2 tablets by mouthin the morning and 2 tablets in the evening and 2 tablets before bedtime. 02/23/2023 ActiveStart: 02-23-2023 End: 85-03-0179niok 2 tablets by mouth oncecalcium carbonate-vitamin D3 (OSCAL 500 + D) 500 mg(1,250mg) -200 units per tablet Take 2 tablets by mouth. 02/23/2023 11/23/2023 Discontinued (Therapy completed)Start: 09-04-2021 End: 65-07-4044jvmo 1 tablet by mouth once daily1 tablet, Oral, DAILY, First dose on 09/04/21 at 1030, Until Discontinued Per og .cariprazine 1.5 mg oral capsule (20 sources)Atypical AntipsychoticStart: 05-10-2023 End: 80-81-4521rhbk 1 capsule by mouth once daily in the morningcariprazine (VRAYLAR) 1.5 mg capsule Indications: Moderate episode of recurrent major depressive disorder (CMS-HCC) Take 1 capsule (1.5 mg total) by mouth every morning. TAKE 1 CAPSULE BY MOUTH IN THE MORNING 30 capsule 5 12/30/2024 Active Start: 12-16-2022 End: 44-26-3089hfyf 1 capsule by mouth in the morningcariprazine (VRAYLAR) 1.5 mg capsule Indications: Anxiety and depression Take 1 capsule (1.5 mg total) by mouth in the morning. 30 capsule 3 12/16/2022 03/08/2023 Discontinued (Therapy completed)carvedilol 25 mg oral tablet (20 sources)alpha-Adrenergic Ubaldo, beta-Adrenergic BlockerStart: 09-28-2021 End: 16-04-8622kxtr 1 tablet by mouth in the morningcarvedilol (Coreg) 25 MG tablet Take 25 mg by mouth in the morning and 25 mg in the evening. Take with meals. 05/10/2022 ActiveStart: 09-09-2021 End: 02-29-3686zcuz 1 tablet by mouth twice dailycarvedilol (COREG) 12.5 MG tablet Take 1 tablet by mouth 2 times daily 60 tablet 3 09/12/2021 ActiveStart: 09-08-2021 End: 55-82-8573kfsq 25 mg by mouth twice daily at ovhtvsrc72 mg, Oral, 2 TIMES DAILY, First dose (after last modification) on Mon09/08/21 at 1000, Until Discon tinued Administer with food to minimize the risk of orthostatic hypotension Start: 09-07-2021 End: 79-97-1996trdc 12.5 mg by mouth twice daily at tufbjgef53.5 mg, Oral, 2 TIMES DAILY, First dose (after last modification) on Mon09/07/21 at 2100, Until Discontinued Administer with food to minimize the risk of orthostatic hypotensionStart: 08-30-2021 End: 69-90-9041ddti 6.25 mg by mouth twice daily at mealtime6.25 mg, Oral, 2 TIMES DAILY, First dose (after last modification) on Mon09/07/21 at 0715, Until Discontinued Administer with food to minimize the risk of orthostatic hypotensioncefTRIAXone (ROCEPHIN) infusion (15 sources)Start: 09-13-2021 End: 56-42-3570wmfd 2000 mg intravenously every twenty-four hourscefTRIAXone (ROCEPHIN) infusion Infuse 2,000 mg intravenously every 24 hours for 16 days Compound per protocol 32 g 0 09/13/2021 09/29/2021 Activecephalexin 500 mg oral capsule (2 sources)Cephalosporin AntibacterialStart: 09-20-2023 End: 27-32-7918tcpk 1 capsule by mouth in the morning, then take 1 capsule by mouth at bedtimeCEPHalexin (KEFLEX) 500 mg capsule Indications: Folliculitis Take 1 capsule (500 mg total) by mouthin the morning and 1 capsule (500 mg total) before bedtime. Do all this for 10 days. 20 capsule 09/20/2023 09/30/2023 ActiveStart: 02-02-2016 End: 38-82-6224tqouzoitdk hydrochloride 10 mg oral tablet (20 sources)Histamine-1 Receptor AntagonistStart: 07-12-2022 End: 29-24-2309tdlb 1 tablet by mouth in the morningcetirizine (ZyrTEC) 10 mg tablet Indications: Seasonal allergic rhinitis due to pollen TAKE 1 TABLET BY MOUTH IN THE MORNING 30 tablet 6 06/17/2024 Activecetirizine (ZyrTEC) 10 MG chewable tablet Chew Daily Activecholecalciferol 0.125 mg oral capsule (8 sources)Vitamin DStart: 53-53-8423mqxd 1 capsule by mouth in the morningRA Vitamin D-3 125 MCG (5000 UT) capsule Take 1 capsule by mouth in the morning. 06/15/2022 ActiveCholecalciferol (VITAMIN D3) 125 MCG (5000 UT) TABS Take 1 tablet by mouth 0 Activeclopidogrel 75 mg oral tablet (20 sources)P2Y12 Platelet InhibitorStart: 08-10-2123ooht 1 tablet by mouth in the morningclopidogreL (PLAVIX) 75 mg tablet Take 1 tablet (75 mg total) by mouth in the morning. 06/07/2022 Activedapagliflozin 10 mg oral tablet (20 sources)Sodium-Glucose Cotransporter 2 InhibitorStart: 12-16-2022 End: 11-63-7110zutgazakleloz propanediol (FARXIGA) 10 mg tablet Indications: Type 2 diabetes mellitus with stage 3chronic kidney disease and hypertension ([facility]) take 1 tablet by mouth every morning 90 tablet 1 06/10/2024 Active0.5 ml dulaglutide 3 mg/ml auto-injector (17 sources)GLP-1 Receptor AgonistStart: 78-11-1508zxtapvfzyfz (TRULICITY) 1.5 mg/0.5 mL pen injector Indications: Type 2 diabetes mellitus with microa lbuminuria, without long-term current use of insulin ([facility]) Inject 1.5 mg under the skin every 7days. 2 mL 4 07/10/2024 ActiveStart: 06-10-2024 End: 87-32-8770zbskwgdrner (TRULICITY) 0.75 mg/0.5 mL pen injector Indications: Uncontrolled type 2 diabetes mellitus with hyperglycemia ([facility]) Inject 0.5 mL (0.75 mg total) under the skin every 7 days. 2 mL 06/10/2024 07/10/2024 Discontinued (Therapy completed)Start: 03-08-2023 End: 13-52-8666eojvrynhoee (TRULICITY) 1.5 mg/0.5 mL pen injector Indications: Type 2 diabetes mellitus with microalbuminuria, without long-term current use of insulin ([facility]) Inject 1.5 mg under the skin every 7days. 2 mL 3 03/08/2023 04/19/2023 Discontinued (Therapy completed)Start: 12-16-2022 End: 32-13-5508mihjffbuequ (TRULICITY) 0.75 mg/0.5 mL pen injector Indications: Type 2 diabetes mellitus with microalbuminuria, without long-term current use of insulin ([facility]) , Dilated cardiomyopathy ([facility]) Inject 0.5 mL (0.75 mg total) under the skin every 7 days. 2 mL 3 12/16/2022 03/08/2023 Discontinued inject 1.5 mg by subcutaneous injection every weekdulaglutide (Trulicity) 1.5 MG/0.5ML solution pen-injector Inject 1.5 mg under the skin 1 (one) time per week ActiveFLUoxetine 20 mg oral capsule (20 sources)Serotonin Reuptake InhibitorStart: 65-26-7294ckpi 1 capsule by mouth in the morningFLUoxetine (PROzac) 20 mg capsule Indications: Anxiety and depression Take 1 capsule (20 mg total) by mouth in the morning. 90 capsule 1 01/03/2025 ActiveStart: 12-16-2022 End: 80-97-1708lyxd 1 capsule by mouth in the morningFLUoxetine (PROzac) 20 mg capsule Indications: Anxiety and depression Take 1 capsule (20 mg total) by mouth in the morning. 90 capsule 1 06/10/2024 01/02/2025 Discontinued (Reorder) Start: 05-23-2022 End: 33-27-4206aekr 10 mg by mouth once daily10 mg, Oral, DAILY, First dose on Mon05/23/22 at 1230, Until Discontinuedtake 2 tablets by mouth once daily FLUoxetine (PROZAC) 10 MG tablet Take 2 tablets by mouth daily 0 Activetake 1 tablet by mouth once dailyFLUoxetine (PROZAC) 10 MG tablet Take 1 tablet by mouth daily 0 Jsjxrb9530 ml glucose 100 mg/ml injection (3 sources)Start: 09-49-6207rsbs 1 mL intravenously every hourIntraVENous, at 100 [...] 60 minutes, discontinue dextrose 10% infusion. Post-opStart: 96-36-286179 g (4 tablet), Oral, PRN, Starting on [...] THAN 70 mg/dL,notify provider. Post-opStart: 09-07-2021 End: 37-23-6798BobnbUQOush, at 50 mL/hr, CONTINUOUS, Starting on Mon09/07/21 at 50593 ml insulin detemir 100 unt/ml pen injector (20 sources)Insulin AnalogStart: 75-62-5243bdfwtwm detemir U-100 (LEVEMIR FLEXPEN) 100 unit/mL (3 mL) insulin pen Indications: Type 2 diabetesmellitus with microalbuminuria, without long-term current use of insulin ([facility]) Inject 35 Units under the skin nightly. 15 mL 1 01/16/2024 ActiveStart: 07-18-2023 End: 84-27-0300tdqfsyt detemir U-100 (LEVEMIR FLEXPEN) 100 unit/mL (3 mL) insulin pen Indications: Type 2 diabetesmellitus with microalbuminuria, without long-term current use of insulin ([facility]) Inject 20 Units under the skin nightly. 15 mL 1 11/23/2023 ActiveStart: 05-05-2023 End: 95-05-9625imjmme 10 [IU] by subcutaneous injection once dailyinsulin detemir U-100 (LEVEMIR FLEXPEN) 100 unit/mL (3 mL) insulin pen Inject 10 Units under the skin nightly. 15 mL 1 05/05/2023 07/18/2023 Discontinued (Reorder)3 ml insulin glargine 100 unt/ml pen injector (20 sources)Insulin AnalogStart: 15-69-0613qtucnkt glargine (LANTUS SOLOSTAR U- 100 INSULIN) 100 unit/mL (3 mL) insulin pen Indications: Uncontrolled type 2 diabetes mellitus with hyperglycemia ([facility]) Inject 80 Units under the skin nightly.15 mL 6 06/10/2024 ActiveStart: 04-03-2024 End: 85-78-0162kvxpoyr glargine (LANTUS SOLOSTAR U-100 INSULIN) 100 unit/mL (3 mL) insulin pen Indications: Type 2diabetes mellitus with microalbuminuria, without long-term current use of insulin ([facility]) Inject 70 Units under the skin nightly. 15 mL 6 04/03/2024 06/10/2024 Discontinued (Reorder)Start: 02-21-2024 End: 44-98-5244ojwazsr glargine (LANTUS SOLOSTAR U-100 INSULIN) 100 unit/mL (3 mL) insulin pen Indications: Type 2diabetes mellitus with microalbuminuria, without long-term current use of insulin ([facility]) Inject 35 Units under the skin nightly. 15 mL 12 02/21/2024 04/03/2024 Discontinued (Reorder)Start: Units (rounded from 19.035 Units = 0.15 Units/kg 126.9 kg), SubCUTAneous, NIGHTLY, First dose onFri 06/03/22 at 2100, Until Discontinued Hold if BG is less than 160. If patient is NOT diabetic discontinue order. If patient takes Lantus at home - notify CTS team. Post-opStart: 06-01-2022 End: 56-11-6045htvwaw 1 dose by subcutaneous injection once10 Units, SubCUTAneous, ONCE, 1 dose, On Mon06/01/22 at 1315Start: 05-30-2022 End: 93-97-4616htnsvk 50 [IU] by subcutaneous injection twice daily50 Units, SubCUTAneous, 2 times daily, First dose (after last modification) on 05/30/22 at 2100,Until DiscontinuedStart: 05-29-2022 End: 49-71-0194metdbr 45 [IU] by subcutaneous injection twice daily45 Units, SubCUTAneous, 2 times daily, First dose (after last modification) on 05/29/22 at 2100,Until DiscontinuedStart: 05-28-2022 End: 52-42-6964krdfrg 40 [IU] by subcutaneous injection twice daily40 Units, SubCUTAneous, 2 times daily, First dose (after last modification) on 05/28/22 at 2100,Until DiscontinuedStart: 05-24-2022 End: 53-24-8183jlyuff 30 [IU] by subcutaneous injection twice daily30 Units, SubCUTAneous, 2 times daily, First dose on 05/24/22 at 1130, Until DiscontinuedStart: 05-23-2022 End: 74-41-324893 Units (rounded from 25.4 Units = 0.2 Units/kg 127 kg), SubCUTAneous, NIGHTLY, First dose (after last modification) on Mon05/23/22 at 1645, Until Discontinuedisopropyl alcohol 0.7 ml/ml medicated pad (20 sources)Start: 70-56-9839bbhzify swabs (ALCOHOL PREP PADS) pads, medicated Indications: Uncontrolled type 2 diabetes mellitus with hyperglycemia ([facility]) Apply 1 Pad topically in the morning and at bedtime. 100 each 6 07/12/2022 Activeketotifen 0.25 mg/ml ophthalmic solution (20 sources)Histamine-1 Receptor InhibitorStart: 78-13-1637vtrb 1 drop(s) into the eye(s) twice dailyEYE ITCH RELIEF 0.025 % (0.035 %) ophthalmic solution INSTILL 1 DROP INTO BOTH EYES TWICE A DAY DIRECTED 11/24/2021 Active lisinopril 5 mg oral tablet (20 sources)Angiotensin Converting Enzyme InhibitorStart: 01-10-2023 End: 88-92-1096ytqt 1 tablet by mouth in the morninglisinopriL (PRINIVIL,ZESTRIL) 5 mg tablet Indications: Primary hypertension Take 1 tablet (5 mg total) by mouth in the morning. 90 tablet 1 12/30/2024 ActiveStart: 12-06-2022 End: 46-62-0138fvcn 1 tablet by mouth in the morninglisinopril 2.5 MG tablet Take 2.5 mg by mouth in the morning. 12/06/2022 Activetake 1 tablet by mouth once dailylisinopril (PRINIVIL;ZESTRIL) 5 MG tablet Take 1 tablet by mouth daily 0 Activeloperamide hydrochloride 2 mg oral capsule (8 sources)Opioid AgonistStart: 08-12-2024 End: 62-54-9844atgv 1 capsule by mouth four times daily as needed for diarrhea loperamide (IMODIUM) 2 mg capsule Indications: Loose stools Take 1 capsule (2 mg total) by mouth 4 (four) times a day as needed for diarrhea. 30 capsule 12/30/2024 ActiveStart: 08-09-2024 End: 65-14-7366frbo 1 tablet by mouth four times daily as needed for diarrhea loperamide (IMODIUM A-D) 2 mg tablet Indications: Loose stools Take 1 tablet (2 mg total) by mouth 4 (four) times a day as needed for diarrhea. 30 tablet 08/09/2024 08/12/2024 Discontinued (Therapy completed)24 hr loratadine 10 mg / pseudoephedrine sulfate 240 mg extended release oral tablet (18 sources)alpha-Adrenergic AgonistStart: 89-70-0131ilzd 1 tablet by mouth once daily at bedtime, then take 1 tablet by mouth every twenty-four hours Loratadine-Pseudoephedrine (Loratadine-D) 10-240 mg Tablet Extended Release 24 Hr Active 1 TAB PO Daily at bedtime August 28, 2021 7:13pmtake 10-240 mg by mouth onceloratadine-pseudoephedrine (CLARITIN-D 24 HOUR) 10-240 MG per extended release tablet Take 1 tabletby mouth daily 0 Qggqlh39 ml magnesium sulfate 40 mg/ml injection (1 [...] 25 mg oral tablet (20 sources)beta-Adrenergic BlockerStart: 95-53-9430ycgu 1 tablet by mouth in the morning, [...] ONCE, 1 dose, On 09/06/21 at 1645Start: 71-79-7999hfrk 50 mg by mouth once dailyMetoprolol Succinate Active 50 MG PO Daily August 28, 2021 7:13pmtake 1 tablet by mouth every twenty-four hours in the morningmetoprolol succinate XL (Toprol-XL) 25 MG 24 hr tablet Take 25 mg by mouth in the morning. Do not crush or chew.. Activemupirocin 0.02 mg/mg topical ointment (3 sources)RNA Synthetase Inhibitor AntibacterialStart: 06-02-2022 End: 81-16-9040xrvq 1 dose nasal route twice dailyEach Nostril, 2 TIMES DAILY, First dose on Mon06/02/22 at 2100, For 10 doses, Post-opStart: 05-30-2022 End: 70-67-4153uvdi 1 dose nasal route twice dailyEach Nostril, 2 TIMES DAILY, First dose on Mon05/31/22 at 2345, For 10 dosespantoprazole 40 mg delayed release oral tablet (3 sources)Proton Pump InhibitorStart: 05-26-2022 End: 91-53-9090ywzkdjsomnrb glycol 3350 13027 mg powder for oral solution (4 sources)Osmotic LaxativeStart: 06-02-2022 End: 77-92-2670bawl 17 g by mouth once daily as needed for constipation polyethylene glycol (GLYCOLAX) 17 g packet Take 17 g by mouth daily as needed for Constipation 527 g 0 06/06/2022 07/06/2022 ActiveStart: g, Oral, DAILY PRN, Starting on Mon08/29/21 at 0640, Until Discontinued, Constipation First linetherapy for jyaxoyiqitot73 ml potassium chloride 0.4 meq/ml injection (2 [...] semaglutide 1.34 mg/ml pen injector (1 source)Start: 21-49-9036brkhvokiomg (OZEMPIC) 0.25 mg or 0.5 mg(2 mg/1.5 mL) pen injector Indications: Type 2 diabetes mellitus with microalbuminuria, without long-term current use of insulin ([facility]) Inject 0.5 mg under the skin every 7 days. 1.5 mL 2 07/18/2023 Activetamsulosin hydrochloride 0.4 mg oral capsule (6 sources)alpha-Adrenergic BlockerStart: 06-07-2022 End: 78-55-0012gshq 1 capsule by mouth once dailytamsulosin (FLOMAX) 0.4 MG capsule Take 1 capsule by mouth daily 30 capsule 0 06/30/2022 ActiveStart: 94-12-8319omzj 0.4 mg by mouth once daily0.4 mg, [...] unless specifically ordered. Post-op [Order 2 End]Start: 55-80-5552fcdm 1 tablet by mouth every four hours [...] Kathy 09/09/21 at 1630, For 1 doseStart: 15-18-4500hmiw 100 mg intravenously every twenty-four hours2,000 mg, IntraVENous, EVERY 24 HOURS, First dose on Mon09/06/21 at 1315, Until Discontinued Antimicrobial Indications: Bloodstream Infection Administer as slow IV Push over 5 mins R econstitute 2 g vials with 19.2 mL of designated diluent to produce a 100mg/mL solutionStart: 09-02-2021 End: 70-09-0100gbgi 1 dose intravenously every twelve kpfez768 mg (3.39 mg/kg), IntraVENous, at 50 mL/hr, Administer over 1 Hours, EVERY 12 HOURS, First dose on Kathy 09/02/21 at 1400 Administer by slow IV infusion over 60 minutes.Start: 08-30-2021 End: 92-14-1363dqyy 20 mL intravenously every hour2,000 mg, IntraVENous, [...] minutes to goal of therapy.Start: 08-29-2021 End: 04-26-9238wobi 20 mg intravenously twice daily20 mg, IntraVENous, [...] Mucolytic, Antidote for Acetaminophen OverdoseStart: 05-26-2022 End: 51-93-5843rjeu 1 dose by mouth yjga255 mg, Oral, ONCE, 1 dose, On Mon05/26/22 at 2300Start: 05-26-2022 End: 81-59-2115342 mg, Oral, 2 TIMES DAILY, 4 doses, First dose on Mon05/26/22 at 0100, Last dose on Mon05/27/22 at 0900albuterol 0.833 mg/ml / ipratropium bromide 0.167 mg/ml inhalation solution (1 source)Anticholinergic, beta2-Adrenergic AgonistStart: ampule, Inhalation, EVERY 4 HOURS PRN, Starting on Mon06/02/22 at 1824, Until Discontinued, Shortness of Breath Initiate RT Bronchodilator Protocol: Yes Post-opamiodarone hydrochloride 200 mg oral tablet (20 sources)AntiarrhythmicStart: 08-22-2022 End: 88-58-4139uchu 1 tablet by mouth in the morningamiodarone (PACERONE) 200 mg tablet Take 1 tablet (200 mg total) by mouth in the morning. 08/22/2022 07/18/2023 Discontinued (Therapy completed)Start: 06-04-2022 End: 55-01-4835yfny 1 tablet by mouth twice dailyamiodarone (CORDARONE) 200 MG tablet Take 1 tablet by mouth 2 times daily 60 tablet 0 06/30/2022 ActiveStart: 05-30-2022 End: 63-04-9644gsai 200 mg by mouth three times mg, Oral, 3 TIMES DAILY, First dose on Mon06/02/22 at 2100, Until Discontinued Hold for QTC grea ter than 500 and HR less than 60. Post-opamLODIPine 10 mg oral tablet (1 source)Dihydropyridine Calcium Channel BlockerStart: 09-08-2021 End: 11-93-3654vsrp 10 mg by mouth once daily10 mg, Oral, DAILY, First dose on Mon09/08/21 at 0615, Until Discontinuedbisacodyl 10 mg rectal suppository (2 sources)Stimulant LaxativeStart: 96-08-8940xili 10 mg rectal route once daily as utivro43 mg, Rectal, DAILY PRN, Starting on Mon06/02/22 at 1824, Until Discontinued, Constipation Second line therapy for constipation, After 24 hours, if no result from first line PRN therapy, give secondline therapy in combination with first line therapy. Post-opStart: 84-77-4944xxwy 10 mg rectal route once daily as mg, Rectal, DAILY PRN, Starting on Mon09/05/21 at 1838, Until Discontinued, Constipationcalcium chloride 0.0014 meq/ml / potassium chloride 0.004 meq/ml / sodium chloride 0.103 meq/ml / sodium lactate 0.028 meq/ml injectable solution (1 source)Start: 05-23-2022 End: 52-25-8630IszjjNNNxsr, at 100 mL/hr, CONTINUOUS, Starting on Mon05/23/22 at 1230cefdinir 300 mg oral capsule (1 source)Cephalosporin AntibacterialStart: 04-24-2023 End: 93-17-3110kntc 1 capsule by mouth twice dailycefDINIR (OMNICEF) 300 mg capsule take 1 capsule by mouth twice a day for 10 days 0 04/24/2023 05/05/2023 Discontinued (Therapy completed)cefTRIAXone (ROCEPHIN) 2,000 mg in dextrose 5 % 50 mL IVPB mini-bag (1 source)Start: 09-28-2021 End: 51-71-3752hkaCYMFZdul (ROCEPHIN) 2,000 mg in dextrose 5 % 50 mL IVPB mini-bagcefTRIAXone (ROCEPHIN) 2,000 mg in sterile water 20 mL IV syringe (1 source)Start: 09-13-2021 End: 30-34-5299vuqWSQHWalb (ROCEPHIN) 2,000 mg in sterile water 20 mL IV syringe cefTRIAXone (ROCEPHIN) 2000 mg IVPB in D5W 50ml minibag (11 sources)Start: 09-25-2021 End: 21-24-4615zufBCDVGszq (ROCEPHIN) 2000 mg IVPB in D5W 50ml minibagStart: 09-24-2021 End: 70-61-2513tvoLLTAKuoi (ROCEPHIN) 2000 mg IVPB in D5W 50ml minibagStart: 09-23-2021 End: 38-74-7663cisPIUXWzcb (ROCEPHIN) 2000 mg IVPB in D5W 50ml minibagStart: 09-22-2021 End: 94-36-0483illIANIHyfb (ROCEPHIN) 2000 mg IVPB in D5W 50ml minibagStart: 09-21-2021 End: 12-18-6690hpwDOZTAedi (ROCEPHIN) 2000 mg IVPB in D5W 50ml minibagStart: 09-20-2021 End: 85-22-4402xczONQYOcms (ROCEPHIN) 2000 mg IVPB in D5W 50ml minibagStart: 09-19-2021 End: 88-66-4180eivRTQMLwmt (ROCEPHIN) 2000 mg IVPB in D5W 50ml minibagStart: 09-18-2021 End: 99-10-1183mimSZBIZadk (ROCEPHIN) 2000 mg IVPB in D5W 50ml minibagStart: 09-17-2021 End: 52-90-3328uzzHLNCEykf (ROCEPHIN) 2000 mg IVPB in D5W 50ml minibagStart: 09-15-2021 End: 60-41-8863kdqSDREVvzv (ROCEPHIN) 2000 mg IVPB in D5W 50ml minibagStart: 09-14-2021 End: 90-05-3068fvhEORTAzwu (ROCEPHIN) 2000 mg IVPB in D5W 50ml minibag chlorhexidine gluconate 1.2 mg/ml mouthwash (2 sources)Start: 05-30-2022 End: 75-76-5060hsed 1 dose by mouth once15 mL, Mouth/Throat, ONCE, 1 dose, On Mon05/30/22 at 2045 Morning of surgery Pre-op (day of surgery)Start: 05-30-2022 End: 16-05-1345Fjwikvx, SEE ADMIN INSTRUCTIONS, Starting on Mon05/30/22 at 2019, For 2 doses Night prior to surgery and after hair clipping morning of surgery Pre-op (day of surgery)cinacalcet 30 mg oral tablet (14 sources)Calcium-sensing Receptor AgonistStart: 12-06-2022 End: 24-07-8297pvtezwicqv (SENSIPAR) 30 mg tablet Take 1 tablet (30 mg total) by mouth. 12/06/2022 07/18/2023 Discontinued (Therapy completed)100 ml dexmedetomidine 0.004 mg/ml injection (1 source)Central alpha-2 Adrenergic AgonistStart: 09-03-2021 End: 73-07-7702rybi 2.9-43.4 mL intravenously every hour0.1-1.5 mcg/kg/hr 115.6 [...] mg oral tablet (1 source)Histamine-1 Receptor AntagonistStart: 61-10-1844alsp 25 mg by mouth once daily as mg, Oral, NIGHTLY PRN, Starting on Mon06/03/22 at 0000, Until Discontinued, Sleep, Post-opdocusate sodium 100 mg oral capsule (1 source)Start: 02-02-2016 End: 12-68-9610qrwjdixq sodium 50 mg / sennosides, correction 8.6 mg oral tablet (1 source)Start: 97-03-1081bnfm 1 tablet by mouth twice daily1 tablet, [...] over 5 mins. Post-op Start: 09-13-2021 End: 88-88-8657Hwzfi: 09-08-2021 End: 58-70-5904ijcy 1 dose intravenously once20 millicurie, IntraVENous, IMG ONCE PRN, 1 dose, Starting on Mon09/08/21 at 1128, Until Discontinued, Other, Nuclear MedicineStart: 09-01-2021 End: 63-78-4848hyxf 0.5-4 mL intravenously every lvfq22-813 mcg/hr (0.5-4 mL/hr), IntraVENous, CONTINUOUS, Starting on [...] mg/0.5 mL pen injector (1 source) End: 33-44-6325xdulixhazgk (TRULICITY) 3 mg/0.5 mL pen injector Inject 3 mg under the skin. 0 03/08/2023 Discontinueddulaglutide 3 mg/0.5 mL pen injector (9 sources)Start: 04-19-2023 End: 92-81-4935vyonthzmkrb 3 mg/0.5 mL pen injector Indications: Type 2 diabetes mellitus with microalbuminuria, without long-term current use of insulin ([facility]) Inject 3 mg under the skin every 7 days. 2 mL 4 04/19/2023 07/18/2023 Discontinued (Therapy completed)Start: 01-72-9747arfargeqwmv 3 mg/0.5 mL pen injector Indications: Type 2 diabetes mellitus with microalbuminuria, without long-term current use of insulin ([facility]) Inject 3 mg under the skin every 7 days. 2 mL 4 04/19/2023 Activeergocalciferol 1.25 mg oral capsule (17 sources)Provitamin D2 CompoundStart: 09-12-2021 End: 34-61-3880Mgyixim D, Ergocalciferol, 26659 units CAPS 50,000 Units by Per NG tube route once a week 5 capsule0 09/12/2021 09/28/2021 Discontinued (Therapy completed)Start: 30-50-269058,000 Units, Per NG tube, WEEKLY, First dose on Mon09/04/21 at 1100, Until Discontinuedfamotidine 20 mg oral tablet (3 sources)Histamine-2 Receptor AntagonistStart: 09-05-2021 End: 80-19-685787 mg, Per G Tube, 2 TIMES DAILY, First dose (after last modification) on Mon09/05/21 at 2100, UntilDiscontinued Renal dose adjustment per P&T GuidelinesStart: 09-04-2021 End: 04-54-595585 mg, Per G Tube, DAILY, First dose (after last modification) on Mon09/04/21 at 0900, Until Discontinued Renal dose adjustment per P&T Guidelines Start: 08-31-2021 End: 54-78-604904 mg, Per G Tube, 2 TIMES DAILY, First dose on Mon08/31/21 at 2100, Until Discontinuedfenofibrate 160 mg oral tablet (1 source)Peroxisome Proliferator Receptor alpha AgonistStart: 05-25-2022 End: 28-98-7730mrbv 160 mg by mouth once mg, Oral, DAILY, First dose on Mon05/25/22 at 0900, Until Discontinued Substituted for Fenofibrate (Non- Formulary Dose).2 ml fentaNYL 0.05 mg/ml injection (3 sources)Opioid AgonistStart: 08-30-2021 End: 48-02-1236ottw 50 ug by mouth every hour as [...] each other unless specifically ordered.Start: 08-29-2021 End: 30-98-6976lylk 1 dose by mouth ifsj836 mcg, IntraVENous, ONCE, 1 dose, On Mon08/29/21 at 0500 If oral and IV narcotics ordered, use oral first and only use IV if oral is ineffective or cannot take oral. Do Not give oral and IV within 1 hour of each other unless specifically ordered.Start: 08-29-2021 End: 73-57-0558xidj 1 dose by mouth zjfo739 mcg, IntraVENous, ONCE, 1 dose, On 08/29/21 at 0315 If oral and IV narcotics ordered, use oral first and only use IV if oral is ineffective or cannot take oral. Do Not give oral and IV within 1 hour of each other unless specifically ordered.fluticasone propionate 0.05 mg/actuat metered dose nasal spray (20 sources)CorticosteroidStart: 05-27-2022 End: 16-47-8420curx 1 spray(s) nasal route twice daily as needed for rhinitis1 spray, Each Nostril, 2 TIMES DAILY PRN, Starting on Mon05/27/22 at 0427, Until Kathy 06/02/22 at 1824, RhinitisStart: 89-51-3258ezgg 2 spray(s) nasal route in the morningfluticasone [...] mg/ml injection (10 sources)Loop DiureticStart: 06-05-2022 End: 18-20-097817 mg, IntraVENous, ONCE, 1 dose, On 06/05/22 at 1000Start: 47-48-129416 mg, IntraVENous, DAILY, First dose (after last modification) on Mon09/07/21 at 0900, Until DiscontinuedStart: 09-05-2021 End: 60-83-155055 mg, IntraVENous, EVERY 12 HOURS, First dose on Mon09/05/21 at 1700, Until DiscontinuedStart: 09-02-2021 End: mg, IntraVENous, 2 TIMES DAILY, First dose on Kathy 09/02/21 at 1130, Until Discontinuedfurosemide (LASIX) 20 MG tablet Take by mouth daily 0 Activefurosemide (LASIX) 10 MG/ML solution Take by mouth daily 0 Activeglucagon (rdna) 1 mg injection (1 source)Antihypoglycemic AgentStart: 93-09-3694uxnl 1 mL intravenously every hour1 mg, IntraMUSCular, [...] No bolus. Decrease infusion by 2 units/kg/hr. oTRY59-146 secs Hold heparin for 60 minutes then [...] re-bolus based on pharmacy algorithmStart: 09-13-2021 End: 90-11-7669fzjzvmz flush 100 UNIT/ML injection 500 UnitsStart: 09-02-2021 [...] 100 mL infusion (1 source)Start: 06-02-2022 End: 56-34-2976vzym 1-50 [IU] intravenously every hour, then take [...] injectable solution (4 sources)beta-Adrenergic BlockerStart: 05-24-2022 End: 57-85-870208 mg, IntraVENous, ONCE, 1 dose, On Mon05/24/22 at 2345Start: 05-24-2022 End: 31-77-696719 mg, IntraVENous, ONCE, 1 dose, On Mon05/24/22 at 2000Start: 40-62-183517 mg, IntraVENous, EVERY 6 HOURS PRN, Starting on Mon09/07/21 at 0915, Until Discontinued, High Blood Pressure, SBP > 150 Do not administer if HR less than 60Start: 09-06-2021 End: 21-96-662695 mg, IntraVENous, EVERY 2 HOURS PRN, Starting on Mon09/06/21 at 2238, Until Mon09/07/21 at 0910, High Blood Pressure, SBP > 150 Do not administer if HR less than 603 ml liraglutide 6 mg/ml pen injector (20 sources)GLP-1 Receptor AgonistStart: 04-03-2024 End: 82-76-7240wembmqjcplz (VICTOZA 3-ALICE) 0.6 mg/0.1 mL (18 mg/3 mL) pen injector Indications: Uncontrolled type 2 diabetes mellitus with hyperglycemia ([facility]) Inject 0.3 mL (1.8 mg total) under the skin in the morning. 3 mL 6 04/03/2024 06/10/2024 DiscontinuedStart: 11-27-2023 End: 35-25-8852nxsbcollvpp (VICTOZA) 0.6 mg/0.1 mL (18 mg/3 mL) pen injector Indications: Type 2 diabetes mellituswith microalbuminuria, without long-term current use of insulin ([facility]) 1.8mg SUBCUTANEOUSLY (UNDER THE SKIN) 6 mL 11/27/2023 11/27/2023 DiscontinuedStart: 10-23-2023 End: 98-63-8000gnsqzw 1.8 mg by subcutaneous injection once dailyliraglutide (VICTOZA) 0.6 mg/0.1 mL (18 mg/3 mL) pen injector Indications: Type 2 diabetes mellituswith microalbuminuria, without long-term current use of insulin ([facility]) INJECT 1.8mg SUBCUTANEOUSLY (UNDER THE SKIN) EVERY DAY 6 mL 11/27/2023 ActiveStart: 07-19-2023 End: 87-81-4092oayflertbst (VICTOZA 3-ALICE) 0.6 mg/0.1 mL (18 mg/3 mL) pen injector Indications: Type 2 diabetes mellitus with microalbuminuria, without long-term current use of insulin ([facility]) Week one, administer 0.6 mg daily. Week two, administer 1.2 mg daily, then on week three, increase to 1.8 mg daily. 3 mL 07/19/2023 10/20/2023 Discontinued (Reorder)1 ml LORazepam 2 mg/ml injection (2 sources)BenzodiazepineStart: 08-29-2021 End: mg, IntraVENous, ONCE, 1 dose, On 08/29/21 at 0245Start: 08-29-2021 End: mg, IntraVENous, ONCE, 1 dose, On 08/29/21 at 0130magnesium hydroxide 80 mg/ml oral suspension (1 source)Start: 86-70-7128mwqv 30 mL by mouth once daily as gbqeva60 mL, Oral, DAILY PRN, Starting on Kathy 06/02/22 at 1824, Until Discontinued, Constipation First line therapy for constipation. Post-opmeclizine hydrochloride 25 mg oral tablet (8 sources)AntiemeticStart: 04-24-2023 End: 39-49-0619arqi 1 tablet by mouth four times daily [...] (20 sources)Dihydropyridine Calcium Channel BlockerStart: 12-16-2022 End: 91-21-8131ewfg 1 tablet by mouth every twenty-four hours in the morning NIFEdipine XL (PROCARDIA XL) 30 mg 24 hr tablet Indications: Dilated cardiomyopathy (CMS-HCC) , Benign essential HTN Take 1 tablet (30 mg total) by mouth in the morning. 60 tablet 4 12/16/2022 03/08/2023 Discontinued (Therapy completed)Start: 08-09-2022 End: 46-75-0202vgxh 2 tablets by mouth twice dailyNIFEdipine (PROCARDIA XL) 30 MG extended release tablet Take 2 tablets by mouth 2 times daily 360 tablet 0 08/09/2022 11/07/2022 ActiveStart: 05-26-2022 End: 22-25-2935kfwm 60 mg by mouth once daily60 mg, Oral, DAILY, First dose (after last modification) on Kathy 05/26/22 at 0900, Until DiscontinuedDo not crush or break.Start: 05-25-2022 End: 05-36-8638vitq 90 mg by mouth once daily90 mg, Oral, DAILY, First dose (after last modification) on 05/28/22 at 0900, Until DiscontinuedDo not crush or break.Start: 09-08-2021 End: 42-77-5819qlrq 1 tablet by mouth once dailyNIFEdipine (PROCARDIA XL) 30 MG extended release tablet Take 1 tablet by mouth daily 30 tablet 3 09/13/2021 Icxlac583 ml nitroglycerin 0.2 mg/ml injection (1 source)Nitrate [...] tablet (3 sources)Serotonin-3 Receptor AntagonistStart: 04-24-2023 End: 27-85-0075wxncltasase ODT (ZOFRAN ODT) 4 mg disintegrating tablet [...] oral tablet (2 sources)Atypical AntipsychoticStart: 09-04-2021 End: 90-55-2411rhjm 25 mg by mouth once daily25 mg, [...] sodium chloride 9 mg/ml injection (20 sources)Start: 38-46-8343OxvrjFEGjtf, at 50 mL/hr, PRN, Use as chaser for manifold, Starting on Mon06/02/22 at 1824 Use as chaser for manifold. D/C when manifold is torn down. Post-opStart: 14-28-8727qsxq 5-40 mL intravenously once as needed5-40 mL, [...] Line = 20 mL/lumen Post-opStart: 05-31-2022 End: 69-78-5271XrzrpTLFwav, at 5-250 mL/hr, PRN, if patient receiving [...] rate field of order. Post-opStart: 05-26-2022 End: 68-23-6279UzvdwSCGvdc, at 75 mL/hr, CONTINUOUS, Starting on Kathy 05/26/22 at 1400Start: 05-25-2022 End: 61-46-6184UhkgaUIKfrf, at 75 mL/hr, CONTINUOUS, Starting on Mon05/25/22 at 1445Start: 05-23-2022 End: 12-39-2324oami 1 dose intravenously twice daily5-40 mL, IntraVENous, [...] Line = 20 mL/lumen Post-opStart: 09-28-2021 End: 73-71-6672hhbucp chloride flush 0.9 % injection 5-40 mLStart: 09-20-2021 End: 12-50-3826xuvulk chloride flush 0.9 % injection 5-40 mLStart: 09-17-2021 End: 83-19-5807ipmosk chloride flush 0.9 % injection 5-40 mLStart: 09-13-2021 End: 51-07-4127ddecgh chloride flush 0.9 % injection 5-40 mLStart: 09-13-2021 End: .9 % sodium chloride infusionStart: 08-31-2021 End: 65-42-1332568 mL (4.52 mL/kg), IntraVENous, at 247.9 mL/hr, Administer over 121 Minutes, ONCE, On Mon08/31/21at 0100, For 1 doseStart: 63-05-3594svuk 1 dose intravenously twice daily5-40 mL, IntraVENous, [...] Central Line = 20 mL/lumenStart: 08-29-2021 End: 50-43-2657IfgzgZACpda, at 50 mL/hr, CONTINUOUS, Starting on Mon08/31/21 at 0830Start: 24-05-9346tfxs 5-40 mL intravenously once as needed5-40 mL, [...] mL pen injector (2 sources)Start: 02-29-2024 End: 25-38-1510lhgffruhaaw (MOUNJARO) 7.5 mg/0.5 mL pen injector Indications: Uncontrolled type 2 diabetes mellitus with hyperglycemia (CMS-HCC) , Type 2 diabetes mellitus with stage 3 chronic kidney disease and hypertension ([facility]) Inject 7.5 mg under the skin every 7 days. 2 mL 6 02/29/2024 04/03/2024 Discontinued (Cost of medication)Start: 53-08-1563rrzwvpstifk (MOUNJARO) 7.5 mg/0.5 mL pen injector Indications: Uncontrolled type 2 diabetes mellitus with hyperglycemia ([facility]) , Type 2 diabetes mellitus with stage 3 chronic kidney disease and hypertension ([facility]) Inject 7.5 mg under the skin every [...] [Occlusion and stenosis of unspecified cerebral artery]Onset: 87-07-4323QxesyisHnotn myocardial infarction (20 sources)Non-ST elevation (NSTEMI) myocardial infarction; Translations: [Myocardial infarction]Onset: 97-65-6023PopmlmeKaxrpdc disorders (16 sources)Anxiety; Translations: [Anxiety disorder, unspecified]Onset: 73-93-1775SntloneTljmzio kidney disease (20 sources)Chronic kidney disease stage 3; Translations: [CKD (chronic kidney disease), stage III]Onset: 412400-62-1877HytiwugYfhmcjn kidney disease (4 sources)Chronic kidney disease; Translations: [Chronic kidney disease, stage 3b]Onset: 22-64-7490Lkysqwmwml heart failure; nonhypertensive (20 sources)Acute heart failure; Translations: [Heart failure, unspecified] Onset: 81-24-2994KcfabtwPavplzrd atherosclerosis and other heart disease (20 sources)Multi vessel coronary artery disease; Translations: [Atherosclerotic heart disease of [place] coronary artery without angina pectoris]Onset: 57-19-6432GidznnuDncfzrur mellitus with complications (20 sources)Hyperosmolar hyperglycemic coma due to diabetes mellitus without ketoacidosis; Translations: [Type 2 diabetes mellitus with hyperosmolarity with coma]Onset: 48-79-5286HqntgllHurotpbl mellitus without complication (5 sources)Type 2 diabetes mellitus without complications; Translations: [Type 2 diabetes mellitus]Onset: 044407-24-6810XkklagqJfbtxuec mellitus without complication (2 sources)Hyperglycemia, unspecified; Translations: [Hyperglycemia]Onset: 051283-62-3496LksynflkNrdlhjrsd of lipid metabolism (12 sources)Mixed hyperlipidemia; Translations: [Mixed hyperlipidemia]Onset: 084483-63-8894XdjypcgWnhufdjuv hypertension (20 sources)Essential hypertension; Translations: [Essential (primary) hypertension]Onset: 02-73-5850UclekgbSzhsw of unknown origin (20 sources)Fever; Translations: [Fever, unspecified]EpisodicFluid and electrolyte disorders (1 source)Hyperkalemia; Translations: [HYPERKALEMIA]Onset: 76-15-3364Jqorxxxi Hypertension with complications and secondary hypertension (20 sources)Hypertensive crisis; Translations: [Hypertensive crisis, unspecified]Onset: 11-12-8100OwdvjcwYujbvtxwmdgdi and screening for infectious disease (2 sources)Patient encounter status; Translations: [Encounter for screening for infections with a predominantly sexual mode of transmission]Onset: 12-30-2024 77-16-2738RmmjbhhjMaue disorders (20 sources)Moderate major depression, single episode; Translations: [Major depressive disorder, single episode, moderate]Onset: hronic Nonspecific chest pain (5 sources)Chest pain, unspecified; Translations: [Chest pain, unspecified] Onset: 53-95-4702IgvnyzheDcfcnnspncb deficiencies (4 sources)Vitamin D deficiency; Translations: [Vitamin D deficiency, unspecified]Onset: 33-50-1115TocurzdNqgpx aftercare (1 source)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; Translations: [OTH PENITENTIARY CURRENT DRUG THERAPY]Onset: 22-29-5920IgvzjdpsFhlas aftercare (3 sources)predatory animal exterminator (current) use of insulin; Translations: [[facility] (current) use of insulin]Onset: 24-26-5578PcybepvoNzvuf diseases of kidney and ureters (1 source)Disorder of kidney and ureter, unspecified; Translations: [DISORDER KIDNEY AND URETER UNS]Onset: 47-90-5991WmdclfonMmzzv endocrine disorders (20 sources)Hyperparathyroidism; Translations: [Hyperparathyroidism, unspecified]Onset: 93-41-7575VkjbvtnIlxez endocrine disorders (1 source)Hyperparathyroidism, unspecified; Translations: [Hyperparathyroidism, unspecified]Onset: 36-70-4638XcliyuaQevkf endocrine disorders (20 sources)Primary hyperparathyroidism; Translations: [Primary hyperparathyroidism]Onset: 439220-63-5821CwzafabGqdog gastrointestinal disorders (3 sources)Loose stool; Translations: [Other fecal abnormalities]08-09-2024 EpisodicOther gastrointestinal disorders (1 source)Other fecal abnormalities; Translations: [Other fecal abnormalities] Onset: 18-92-8886SxifoubhTwzeq male genital disorders (20 sources)Prolonged erection of penis; Translations: [Priapism, unspecified] Onset: 507617-43-1549YboffhfEpiqq male genital disorders (20 sources)Other and unspecified postprocedural erectile dysfunction; Translations: [Impotence of organic origin]Onset: hronic Other nutritional; endocrine; and metabolic disorders (20 sources)Hypercalcemia; Translations: [Hypercalcemia]Onset: 31-25-3718Hmdcuyg Other nutritional; endocrine; and metabolic disorders (20 sources)Morbid obesity; Translations: [Morbid (severe) obesity due to excess calories]Onset: 09-32-8314DzqvlnaOldcd nutritional; endocrine; and metabolic disorders (1 source)Hypercalcemia; Translations: [Hypercalcemia]Onset: 81-67-8106Yorsptj Other nutritional; endocrine; and metabolic disorders (1 source)Morbid (severe) obesity due to excess calories; Translations: [Morbid (severe) obesity due to excess calories]Onset: 42-15-1001BykaeruAaevb nutritional; endocrine; and metabolic disorders (3 sources)Hypocalcemia; Translations: [Hypocalcemia]Onset: 78-32-0037Iuabbqa Other nutritional; endocrine; and metabolic disorders (1 source)Severe obesity; Translations: [Class 3 severe obesity due to excess calories with serious comorbidity and body mass index (BMI) of 40.0 to 44.9 in adult ([facility])]09-83-2623InhapckNavta nutritional; endocrine; and metabolic disorders (1 source)Body mass index (BMI) 40.0-44.9, adult; Translations: [Body mass index (BMI) 40.0-44.9, adult]Onset: 13-01-1520TofnomyCpznt nutritional; endocrine; and metabolic disorders (10 sources)History of primary hyperparathyroidism; Translations: [Personal history of other endocrine, nutritional and metabolic disease]Onset: 05-31-2022 EpisodicOther nutritional; endocrine; and metabolic disorders (10 sources)History of diabetes mellitus type 2; Translations: [Personal history of other endocrine, nutritional and metabolic disease]Onset: 96-31-3724Fulwpvfc Other upper respiratory disease (10 sources)Allergic rhinitis; Translations: [Allergic rhinitis, unspecified] Onset: 91-54-6804TjckeyiUtqti upper respiratory disease (3 sources)Allergic rhinitis due to pollen; Translations: [Allergic rhinitis due to pollen]48-55-9146QlhdsrdNojit upper respiratory disease (1 source)Seasonal allergic rhinitis; Translations: [Other seasonal allergic rhinitis]Onset: 919344-67-3511NfojelwNpet-; endo-; and myocarditis; cardiomyopathy (except that caused by tuberculosis or sexually transmitted disease) (20 sources)Dilated cardiomyopathy; Translations: [Dilated cardiomyopathy]Onset: 70-91-5450RawsfzdPxsntesa; pneumothorax; pulmonary collapse (20 sources)Pleural effusion; Translations: [Pleural effusion, not elsewhere classified]EpisodicResidual codes; unclassified (20 sources)Obstructive sleep apnea syndrome; Translations: [Obstructive sleep apnea (adult) (pediatric)]Onset: 57-45-5342KjjdxiyLgfiuzkk codes; unclassified (20 sources)Delirium; Translations: [Disorientation, unspecified]Episodic Substance-related disorders (1 source)Nicotine dependence, other tobacco product, uncomplicated; Translations: [NICOTINE DEPEND OTH TOB PROD UNCOMP]Onset: 45-36-8589Shaijqj Unclassified (1 source)CONTACT W/AND (SUSP) EXPOS COVID-19; Translations: [CONTACT W/AND (SUSP) EXPOS COVID-19]Onset: 74-08-1909Vmcrtdzxdnyg (1 source)High Blood Sugar - SymptomaticOnset: 76-91-5183Yhmppbjwzdyh (1 source)High Blood SugarOnset: 82-41-0510Ubkpwuxaobxf (1 source)Obesity, class 3; Translations: [Obesity, class 3]Onset: 12-30-2024 Unclassified (1 source)est care/ partner tested positive for Trich- needs testedOnset: 12-30-2024 Past or Other Problems Problem ClassificationProblemDateDocumented DateEpisodic/ChronicAcute and unspecified renal failure (20 sources)Acute injury of kidney; Translations: [Acute kidney failure, unspecified]Onset: 90-41-1513WegvfpxeWbymxbwz atherosclerosis and other heart disease (1 source)Presence of aortocoronary bypass graft; Translations: [Presence of aortocoronary bypass graft]Onset: 57-74-0040TovchtzoAtikemuh of mouth; excluding dental (20 sources)Lesion of tongue; Translations: [Other diseases of tongue]Onset: 990711-67-9099IegfjsljGxfucslgbtpzj symptoms and ill-defined conditions (20 sources)Persistent proteinuria; Translations: [Persistent proteinuria, unspecified]Onset: 881863-32-6908YfatsaudVtgj disorders (20 sources)Mood disorders; Translations: [Depression, unspecified]Onset: 11-23-2023 Resolved: 774314-11-0142Bfjrd diseases of kidney and ureters (20 sources)Cyst of kidney; Translations: [Cyst of kidney, acquired]Onset: 090145-53-3816PtvqdpuwVaszw lower respiratory disease (20 sources)Acute pulmonary edema; Translations: [Acute pulmonary edema]Onset: 19-99-5032QzohjmweGlyjo lower respiratory disease (1 source)Snoring; Translations: [Snoring]53-45-3561UygyaywcHxaac skin disorders (1 source)Folliculitis; Translations: [Follicular disorder, unspecified] 55-85-5374MjsbxdtxVewj-; endo-; and myocarditis; cardiomyopathy (except that caused by tuberculosis or sexually transmitted disease) (20 sources)Pericardial effusion; Translations: [Pericardial effusion (noninflammatory)]Onset: 39-26-2135WgfcdcjlMhlceaokr (except that caused by tuberculosis or sexually transmitted disease) (20 sources)Pneumonia due to Staphylococcus aureus; Translations: [Pneumonia due to Methicillin susceptible Staphylococcus aureus]Onset: 26-22-9910Mhpohxup Residual codes; unclassified (2 sources)Other specified postprocedural states; Translations: [Other specified postprocedural states]Onset: 38-38-7954VokbxktjHstqsfajlxt failure; insufficiency; arrest (adult) (20 sources)Acute respiratory failure; Translations: [Acute respiratory failure, unspecified whether with hypoxia or hypercapnia]Onset: 71-64-6577Byjqqezp Septicemia (except in labor) (20 sources)Sepsis due to Streptococcus; Translations: [Streptococcal sepsis, unspecified]Onset: 16-46-1248MobavxqeYdsmesifshky (20 sources)Onset: 11-23-2023 Resolved: Viral infection (20 sources)Disease due to Rhinovirus; Translations: [Other viral infections of unspecified site]Onset: 35-99-4565Qcwmbfku Results Test NameValueInterpretationReference RangeFacilityCHLAMYDIA/GONORRHOEAE BY PCR, URINEon 11-74-5270RKJPXKGIM/GONORRHOEAE BY PCR, URINEGONORRHOEAE PCR, U Negative Neisseria gonorrhoeae not detected by nucleic acid amplification. This does not exclude the possibility of infection because results are dependent on adequate specimen collection. CHLAMYDIA PCR, U Negative Chlamydia trachomatis not detected by nucleic acid amplification. This does not exclude the possibility of infection because results are dependent on adequate specimen collection.[facility] Ambulatory PPGComment on above: Performed By: #### CGUPCR #### [facility] ([facility]) [address] [place] [address] VIRTRICHOMONAS BY PCRon 41-41-3221CVSVAAWVANF BY PCRTRICHOMONAS PCR Not Detected Trichomonas vaginalis not detected. Assay methodology is nucleic acid amplification by real-time PCR for detection of Trichomonas vaginalis DNA performed on [employer]pert Instrument System. [facility] Ambulatory PPGComment on above:Performed By: #### TRKPCR #### [facility] ([facility]) [address] [place] [address] VIROrders Onlyon 37-66-1321Apazaw [id number] Elias Walker 1985 Date Provider Department Center 12/13/2024 316-SHANELJACOB [facility] ENDOCR [facility] Family History Problem Relation Age of Onset Diabetes Mother Mental illness Mother Family Status - Relation Status Age at Mother AliveNormalUniKettering Health Troy36on 26-96-414567Izynmzd called in, [facility] got the script for t wiliam Trulicity 3mg, but will not fill it until after 12/16/24 because the note says to start on the , can you change the start date for the Trulicity 3mg to a sooner date? [facility]37on 30-50-315783Bdcftb contact the office for test results in [...] requiring fasting to minimize the risk of ketoacidosis.NormalWexner Medical CenterCBC WITH AUTO DIFFERENTIALon 29-62-9423APQJMTOFE ABSOLUTE COUNT (10*3/UL) BY AUTOMATED COUNT0.0 10*3/uLNormal0.0-0.2ProMedica Shelby Memorial HospitalComment on above:Performed By: #### CBCA #### [facility] ([facility]) [address] [place] [address] VIRBASOPHILS RELATIVE PERCENT BY AUTOMATED COUNT0.4 %Normal [facility]aritan Medical CenterComment on above:Performed By: #### CBCA #### [facility] ([facility]) [address] [place] [address] VIRCELLAVISION DIFFERENTIAL TYPEAUTOMATED DIFFERENTIALNormal [facility]aritan Medical CenterComment on above:Performed By: #### CBCA #### [facility] ([facility]) [address] [place] [address] VIREosinophils (Bld) [#/Vol]0.1 10*3/uLNormal0.0-0.4Pro[facility] Memorial HospitalComment on above:Performed By: #### CBCA #### [facility] ([facility]) [address] [place] [address] VIREOSINOPHILS RELATIVE PERCENT BY AUTOMATED COUNT0.8 %Normal [facility]arcenas HospitalComment on above:Performed By: #### CBCA #### [facility] ([facility]) [address] [place] [address] VIRErythrocyte distribution width (RBC) [Ratio]13.9 %Normal 11.5-15ProMedica [facility]illsbury HospitalComment on above:Performed By: #### CBCA #### [facility] ([facility]) [address] [place] [address] VIRHematocrit (Bld) [Volume fraction]48.8 %Isfnoi04-71PdtZpkxtn Pillsbury HospitalComment on above:Performed By: #### CBCA #### [facility] ([facility]) [address] [place] [address] VIRHemoglobin (Bld) [Mass/Vol]16.1 g/zQPcmifa43-29HwsMqccfb [facility] HospitalComment on above:Performed By: #### CBCA #### [facility] ([facility]) [address] [place] [address] VIRLYMPHOCYTES ABSOLUTE COUNT (10*3/UL) BY AUTOMATED COUNT2.5 10*3/uLNormal1.0-3.5ProMedica Pillsbury HospitalComment on above:Performed By: #### CBCA #### [facility] ([facility]) [address] [place] [address] VIRLYMPHOCYTES RELATIVE PERCENT BY AUTOMATED COUNT31.7 %Normal Pro[facility] Pillsbury HospitalComment on above:Performed By: #### CBCA #### [facility] ([facility]) [address] [place] [address] VIRMCH (RBC) [Entitic mass]28.7 tyZtcofm86-00FmySxcnkm [facility]bury HospitalComment on above:Performed By: #### CBCA #### [facility] ([facility]) [address] [place] [address] VIRMCHC (RBC) [Mass/Vol]32.9 g/yXVcbxtz57-25KycIjorss [place] HospitalComment on above:Performed By: #### CBCA #### [facility] ([facility]) [address] [place] [address] VIRMCV (RBC) [Entitic vol]87 dSNjgwpn57-065BiiXvmuat [place] HospitalComment on above:Performed By: #### CBCA #### [facility] ([facility]) [address] [place] [address] VIRMONOCYTES ABSOLUTE COUNT (10*3/UL) BY AUTOMATED COUNT0.8 10*3/uLNormal0.0-0.9ProUniversity [facility]als [facility] HospitalComment on above:Performed By: #### CBCA #### [facility] ([facility]) [address] [place] [address] VIRMONOCYTES RELATIVE PERCENT BY AUTOMATED COUNT9.8 %Normal ProMMain Campus Medical Center HospitalComment on above:Performed By: #### CBCA #### [facility] ([facility]) [address] [place] [address] VIRNEUTROPHILS ABSOLUTE COUNT BY AUTOMATED COUNT4.6 10*3/uL Normal1.5-6.6ProUniversity Hospitals [facility] HospitalComment on above:Performed By: #### CBCA #### [facility] ([facility]) [address] [place] [address] VIRNEUTROPHILS RELATIVE PERCENT BY AUTOMATED COUNT57.3 %Normal ProMMain Campus Medical Center HospitalComment on above:Performed By: #### CBCA #### [facility] ([facility]) [address] [place] [address] VIRPlatelet mean volume (Bld) [Entitic vol]9.1 fLNormal7-12 ProMMain Campus Medical Center HospitalComment on above:Performed By: #### CBCA #### [facility] ([facility]) [address] [place] [address] VIRPlatelets (Bld) [#/Vol]203 10*3/hEKvpxnz363-411MvsGviavf [place] HospitalComment on above:Performed By: #### CBCA #### [facility] ([facility]) [address] [place] [address] VIRRBC COUNT5.59 X10E12/LNormal4.1-5.7Pro[facility] Comment on above:Performed By: #### CBCA #### [facility] ([facility]) [address] [place] [address] VIRWBC (Bld) [#/Vol]7.9 10*3/uLNormal4-11ProNorwalk Memorial HospitalComment on above:Performed By: #### CBCA #### [facility] ([facility]) [address] [place] [address] VIRCREATININE, SERUMon 37-48-8344Dxmjzturms [Mass/Vol]2.90 mg/dLHigh0.60-1.30ProNorwalk Memorial HospitalComment on above:Result Comment: METHOD TRACEABLE TO IDMS STANDARDPerformed By: #### NURSING OFFICER #### [facility] ([facility]) [address] [place] [address] VIRGFR/1.73 sq M.predicted among non-blacks MDRD (S/P/Bld) [Vol rate/Area]27 mL/min/{1.73_m2}Low>=60ProNorwalk Memorial HospitalComment on above: Result Comment: Reported eGFR is based on the CKD-EPI 2020 equation that does not use a race coefficient.Performed By: #### NURSING OFFICER #### [facility] ([facility]) [address] [place] [address] VIRFollow-Upon 85-18-5191Tamtbj-[id number] BrandinElias 1985 M Date Provider Department Center 11/14/2024 316-JACOB UGARTE [facility] ENDOCR [facility] Family History Problem Relation Age of Onset Diabetes Mother Mental illness Mother Family Status - Relation Status Age at Mother Alive Level of Service:98375 ND OFFICE/OUTPATIENT ESTABLISHED MOD MDM 30 [facility] HospitalLIPID PROFILEon 44-79-7759Kzwpvjdooar [Mass/Vol]150 mg/zHJeyyrp279-937ZfrGvqvii [place] HospitalComment on above: Performed By: #### LIPR #### [facility] ([facility]) [address] [place] [address] VIRCholesterol in HDL [Mass/Vol]29 mg/dLLow>39ProNorwalk Memorial HospitalComment on above:Result Comment: HDL <40 mg/dL - High Risk HDL > or = 40mg/dL- Desirable HDL >60 mg/dL - Negative RiskPerformed By: #### LIPR #### [facility] ([facility]) [address] [place] [address] VIRCholesterol in LDL [Mass/Vol]72 mg/dLNormal<130ProNorwalk Memorial HospitalComment on above:Result Comment: LDL <100 mg/dL - Desirable LDL >160 mg/dL - High RiskPerformed By: #### LIPR #### [facility] ([facility]) [address] [place] [address] VIRCHOLESTEROL:HDL5.2High1.0-5.0[facility] Comment on above:Performed By: #### LIPR #### [facility] ([facility]) [address] [place] [address] VIRTriglyceride [Mass/Vol]244 mg/aCBlmg20-909SkoAyrwzn [place] HospitalComment on above:Performed By: #### LIPR #### [facility] ([facility]) [address] [place] [address] VIRVERY LOW XYYGYXODKGS20 mg/dLHigh0-30ProUniversity Hospitals [facility] HospitalComment on above:Performed By: #### LIPR #### [facility] ([facility]) [address] [place] [address] VIRPOCT Hemoglobin A1con 68-43-4327YtY3g (Bld) [Mass fraction] 10 %Abnormal4 - 7 %[facility] SystemInterpretation and review of laboratory resultsAbnoCoatesville Veterans Affairs Medical Center37on 62-01-770363Tqqisn contact the office for test results in [...] 165-pound) person, and engage in resistance/endurance exercises regularly.NormalUnKeenan Private HospitalCOMPREHENSIVE METABOLIC PANELon 26-51-1775Pkrfmht [Mass/Vol]4.1 g/dLNormal 3.2-5.3ProMed[facility] HospitalComment on above:Performed By: #### [facility], [address]- 9, 2777-1, 82372-1 #### [facility] ([id number]) [address] [place], [place] [address]ZNK [Catalytic activity/Vol]78 U/SRxxuyt46-050FrqAzqbtu Barcenas HospitalComment on above:Performed By: #### DARLENE, 13351-7, 2776-, 27292-7 #### [facility] ([id number]) [address], [address] [place], [place] [address]OMF [Catalytic activity/Vol]30 U/LNormal0-40ProMedica [facility] HospitalComment on above:Performed By: #### DARLENE, 37235-0, 2776-, 39698-8 #### [facility] ([id number]) [address] [place], [place] [address]Obkqb gap [Moles/Vol]7 mmol/LNormal5-15[facility] Comment on above:Performed By: #### DARLENE, , 2776-03, 56354-2 #### [facility] ([id number]) [address], [address] [place], [place] [address]YLK [Catalytic activity/Vol]20 U/LNormal0-41Pro[facility] HospitalComment on above:Performed By: #### DARLENE, , 2776-, 82214-9 #### [facility] ([id number]) [address] [place], [place] [address]Kjzafyxiu [Mass/Vol]0.9 mg/dLNormal0.3-1.2Pro[facility] HospitalComment on above:Performed By: #### DARLENE, 62868-0, 2776-, 48678-5 #### [facility] ([id number]) [address] [place], [place] [address]Dqggfuj [Mass/Vol]9.2 mg/dLNormal8.5-10.5ProMedica Barcenas HospitalComment on above:Performed By: #### DARLENE, , 2776-03, 95917-0 #### [facility] ([id number]) [address] [place], [place] [address]Pgacacic [Moles/Vol]104 mmol/TPqyaca16-310LhgOtrwau [place] HospitalComment on above:Performed By: #### DARLENE, , 2776-, 47587-0 #### [facility] ([id number]) [address] [place], [place] [address]ZL8 [Moles/Vol]27 mmol/SUemson42-98UtmVthhgnHighland District Hospital Comment on above:Performed By: #### DARLENE, , 2776-03, 08823-6 #### [facility] ([id number]) [address] [place], [place] [address]Avhfdxbdke [Mass/Vol]2.17 mg/dLHigh0.60-1.30ProNorwalk Memorial HospitalComment on above:Result Comment: METHOD TRACEABLE TO IDMS STANDARD Performed By: #### DARLENE, , 2776-03, 79204-8 #### [facility] ([id number]) [address] [place], [place] [address]PHN/1.73 sq M.predicted among non-blacks MDRD (S/P/Bld) [Vol rate/Area]39 mL/min/{1.73_m2}Low>59ProNorwalk Memorial HospitalComment on above: Result Comment: Reported eGFR is based on the CKD-EPI 1 equation that does not use a race coefficient.Performed By: #### DARLENE, , 2776-, 95313-4 #### [facility] ([id number]) [address] [place], [place] [address]Orgzvxi [Mass/Vol]220 mg/bKDapz69-45XiaWilbeaUniversity Hospitals Samaritan Medical Center Comment on above:Performed By: #### DARLENE, , 2776-, 64831-0 #### [facility] ([id number]) [address] [place], [place] [address]Vikmupure [Moles/Vol]4.9 mmol/LNormal3.5-5.0ProUniversity Hospitals [facility] Center HospitalComment on above:Performed By: #### CMP, 30168-0, 2777-1, 18818-2 #### [facility] ([id number]) [address] [place], [place] [address]Cfblzdd [Mass/Vol]8.1 g/dLHigh6.0-8.0ProUniversity [facility] Hospital Comment on above:Performed By: #### DARLENE, 81894-5, 2777-, 34224-7 #### [facility] ([id number]) [address] [place], [place] [address]Dqttel [Moles/Vol]138 mmol/MEkpyqh148-731NrvWxhkij [place] HospitalComment on above:Performed By: #### DARLENE, 27706-4, 2777-, 70356-0 #### [facility] ([id number]) [address] [place], [place] [address]Melq nitrogen [Mass/Vol]34 mg/dLHigh5-23ProNorwalk Memorial HospitalComment on above:Performed By: #### DARLENE, 69570-2, 2777-1, 95237-6 #### [facility] ([id number]) [address] [place], [place] [address]Kprexn-Pmdh 62-75-4901Apkwvu-[id number] Elias Walker 1985 M Date Provider Department Center 03/20/2024 316-SHANELJACOB [facility] ENDOCR [facility] Family History Problem Relation Age of Onset Diabetes Mother Mental illness Mother Family Status - Relation Status Age at Mother Alive Level of Service:29319 ND OFFICE/OP CONSLTJ NEW/EST PT LOW MDM 30 MINUTES Reason for Visit and Comments: Follow-up [936287]NormalUnKeenan Private HospitalMAGNESIUMon 53-35-5996Ebvkjxjjq [Mass/Vol]2.0 mg/dLNormal1.8-2.6[facility] Comment on above:Performed By: #### DARLENE, 53124-3, 2777-1, 84228-1 #### [facility] ([id number]) [address] [place], [place] [address]BMKZHBFATVrg 28-92-0082Sftehtkxf [Mass/Vol]3.6 mg/dLNormal 2.4-4.9ProNorwalk Memorial HospitalComment on above:Performed By: #### DARLENE, 85086- 9, 2777-1, 59489-6 #### [facility] ([id number]) [address] [place], [place] [address]Wmxvazo D+Metabolites [Mass/Vol]on 69-95-5402UIEIMKH D 25 HYD TOT22.4 ng/nTFbq73-383ZdnYyoacxNorwalk Memorial HospitalComment on above:Result Comment: Vitamin D status 25 [place] Vitamin D Deficiency <20 ng/mL Insufficiency 20-29 ng/mL Sufficiency 30-100 ng/mL Toxicity >100 ng/mL NOTE: A pediatric reference range has not been established by the supervisor laundry of this kit. The [place] [employer] recommends a Vitamin D level of = or >20ng/mL in infants and children.Performed By: #### DARLENE, 36978-4, 2777-1, 09267-1 #### [facility] ([id number]) [address] [place], [place] [address]UTHU Hemoglobin A1con 62-89-9417IdE8s (Bld) [Mass fraction]8.4 % Abnormal4 - 7 %ProMedicRed Wing [facility] and Clinic SystemInterpretation and review of laboratory resultsAbnormalProCity HospitalProMercy Health [facility] Hospital SystemAmbulatory referral to Diabetic Educationon 68-74-9857OeiSotfdnKettering Health Troy AND AUTO DIFFon 57-96-7300EDQFDNQJ BASOPHIL0.1 X10E9/LNormal0.0-0.2PMedina Hospital Comment on above:Performed By: #### CBCA, CMP #### [facility] ([id number]) [address] [place] [address]RIHQQXWY NEUTROPHIL3.8 X10E9/LNormal1.5-6.6T[facility]carawas HospitalComment on above:Performed By: #### CBCA, CMP #### [facility] ([id number]) [address] [place] [address]Pagehuqwo/100 WBC (Bld)0.8 %NormalTuscarawas Hospital Comment on above:Performed By: #### CBCA, CMP #### [facility] ([id number]) [address] [place] [address]Pdbzhgvtgno (Bld) [#/Vol]0.1 10*3/uLNormal0.0-0.4Tuscarawas HospitalComment on above:Performed By: #### CBCA, CMP #### [facility] ([id number]) [address] [place] [address]Wagbgcyngsl/100 WBC (Bld)1.3 %NormalTuscarawas Hospital Comment on above:Performed By: #### CBCA, CMP #### [facility] ([id number]) [address] [place] [address]Yuexaarcdgv distribution width (RBC) [Ratio]14.1 %Normal 11.5-15.0Tuscarawas HospitalComment on above:Performed By: #### CBCA, CMP #### [facility] ([id number]) [address] [place] [address]Errixfyaab (Bld) [Volume fraction]47.2 %Yqgtup17-27LccCdcglrTuscarawas HospitalComment on above:Performed By: #### CBCA, CMP #### [facility] ([id number]) [address] [place] [address]Fkgaimdkcf (Bld) [Mass/Vol]15.5 g/mJUtlcjg88.0-17.0Tuscarawas HospitalComment on above:Performed By: #### CBCA, CMP #### [facility] ([id number]) [address] [place] [address]Dipqkakxxrt (Bld) [#/Vol]2.4 10*3/uLNormal1.0-3.5PMedina HospitalComment on above:Performed By: #### CBCA, CMP #### [facility] ([id number]) [address] [place] [address]Pfblskxbuzy/100 WBC (Bld)33.9 %NormalProBaylor Scott & White [facility] Comment on above:Performed By: #### CBCA, CMP #### [facility] ([id number]) [address] [place] [address]ATB (RBC) [Entitic mass]29.1 vvLrhunk39-57RtwSitiehTuscarawas HospitalComment on above:Performed By: #### CBCA, CMP #### [facility] ([id number]) [address] [place] [address]IHWY (RBC) [Mass/Vol]32.8 g/nBQfphvq71-83VvzAurbzrBaylor Scott & White Medical Center – Round RockComment on above:Performed By: #### CBCA, CMP #### [facility] ([id number]) [address] [place] [address]RAL (RBC) [Entitic vol]89 pIEdukkf34-089YcjNqwqoj [facility]ont HospitalComment on above:Performed By: #### CBCA, CMP #### [facility] ([id number]) [address] [place] [address], [place] [address]Qnxryyvgj (Bld) [#/Vol]0.7 10*3/uLNormal0-0.9T[facility]carawas HospitalComment on above:Performed By: #### CBCA, CMP #### [facility] ([id number]) [address] [place] [address], [place] [address]Axryfmmhs/100 WBC (Bld)10.1 %[facility] Comment on above:Performed By: #### CBCA, CMP #### [facility] ([id number]) [address] [place] [address]Vmmkvpzfnoh/100 WBC (Bld)53.9 %[facility] Comment on above:Performed By: #### CBCA, CMP #### [facility] ([id number]) [address] [place] [address], [place] [address]Yhuuzkmc mean volume (Bld) [Entitic vol]8.8 fLNormal7-12 [facility] HospitalComment on above:Performed By: #### CBCA, CMP #### [facility] ([id number]) [address] [place] [address], [place] [address]Aceijhiqq (Bld) [#/Vol]236 10*3/zEJeljvu433-446JtePykmut [facility] HospitalComment on above:Performed By: #### CBCA, CMP #### [facility] ([id number]) [address] [place] [address], [place] [address]WRO COUNT5.31 X10E12/LNormal4.10-5.70[facility] Comment on above:Performed By: #### CBCA, CMP #### [facility] ([id number]) [address] [place] [address]MWR (Bld) [#/Vol]7.1 10*3/uLNormal4.0-11.0Tuscarawas HospitalComment on above:Performed By: #### CBCLeslie, CMP #### [facility] ([id number]) [address] [place] [address], [place] [address]EGVTVKGCXBKIA METABOLIC PANELon 30-06-7473Xcrlrcn [Mass/Vol]4.1 g/dLNormal3.2-5.3PMedina HospitalComment on above:Performed By: #### CBCLeslie, CMP #### [facility] ([id number]) [address] [place] [address], [place] [address]BIB [Catalytic activity/Vol]102 U/IUqvkln72-129MhdBexwzuBaylor Scott & White Medical Center – Round RockComment on above:Performed By: #### JUAN M, CMP #### [facility] ([id number]) [address] [place] [address], [place] [address]QGM [Catalytic activity/Vol]43 U/LHigh0-40ProBaylor Scott & White Medical Center – Round RockComment on above:Performed By: #### CBCLeslie, CMP #### [facility] ([id number]) [address] [place] [address], [place] [address]Nlxas gap [Moles/Vol]9 mmol/LNormal5-15ProBaylor Scott & White Medical Center – Round RockComment on above:Performed By: #### CBCLeslie, CMP #### [facility] ([id number]) [address] [place] [address], [place] [address]LTD [Catalytic activity/Vol]23 U/LNormal0-41ProBaylor Scott & White Medical Center – Round RockComment on above:Performed By: #### CBCLeslie, CMP #### [facility] ([id number]) [address] [place] [address], [place] [address]Rqtjpralm [Mass/Vol]0.8 mg/dLNormal0.3-1.2PMedina HospitalComment on above:Performed By: #### CBCLeslie, CMP #### [facility] ([id number]) [address] [place] [address], [place] [address]Lbuiwvl [Mass/Vol]8.4 mg/dLLow8.5-10.5PMedina HospitalComment on above:Performed By: #### JUAN M, CMP #### [facility] ([id number]) [address] [place] [address], [place] [address]Qdmcywck [Moles/Vol]107 mmol/IUacteu57-569KgjBawizmBaylor Scott & White Medical Center – Round RockComment on above:Performed By: #### JUAN M, CMP #### [facility] ([id number]) [address] [place] [address], [place] [address]HJ9 [Moles/Vol]22 mmol/XNolwhm61-51ChfAtlcstMedina Hospital Comment on above:Performed By: #### JUAN M, CMP #### [facility] ([id number]) [address] [place] [address]Deeyhcjzrj [Mass/Vol]2.18 mg/dLHigh0.70-1.20Tuscarawas HospitalComment on above:Result Comment: METHOD TRACEABLE TO IDMS STANDARD Performed By: #### JUAN M, CMP #### [facility] ([id number]) [address] [place] [address]RIV/1.73 sq M.predicted among non-blacks MDRD (S/P/Bld) [Vol rate/Area]39 mL/min/{1.73_m2}Low>59ProBaylor Scott & White Medical Center – Round RockComment on above: Result Comment: Reported eGFR is based on the CKD-EPI 2020 equation that does not use a race coefficient.Performed By: #### JUAN M, CMP #### [facility] ([id number]) [address] [place] [address] 22886Gdotqii [Mass/Vol]270 mg/pYYlxz54-80SoiVmwgroTuscarawas Hospital Comment on above:Performed By: #### JUAN M, CMP #### [facility] ([id number]) [address] [place] [address] 00032Ndgjsxcma [Moles/Vol]4.9 mmol/LNormal3.5-5.0ProBaylor Scott & White Medical Center – Round RockComment on above:Performed By: #### JUAN M, CMP #### [facility] ([id number]) [address] [place] [address] 74330Fqgwabw [Mass/Vol]7.9 g/dLNormal6.0-8.0ProBaylor Scott & White Medical Center – Round RockComment on above:Performed By: #### JUAN M, CMP #### [facility] ([id number]) [address] [place] [address] 54030Slgqjm [Moles/Vol]138 mmol/PFcvvnb381-971DmcOnmrpp Fremont HospitalComment on above:Performed By: #### JUAN M, CMP #### [facility] ([id number]) [address] [place] [address] 55713Stoj nitrogen [Mass/Vol]36 mg/dLHigh5-23ProBaylor Scott & White Medical Center – Round RockComment on above:Performed By: #### JUAN M, CMP #### [facility] ([id number]) [address] [place] [address] 25928Qspcedt Glucometer (BldC) [Mass/Vol]on 82-04-8701Evwrueh [Mass/Vol]181 mg/mFPeuw63-48MeoZoinjiTuscarawas HospitalGlucose [Mass/Vol]283 mg/fDKzcu10-42MwwSpycxcTuscarawas HospitalLipid 1996 panelon 46-89-4258Pazqxmpcrhs [Mass/Vol]166 mg/mDHcvcbs062-479AdsVhkggr [place] HospitalComment on above: Performed By: #### 83697-6 #### [facility] ([id number]) [address], [address] [place], [place] [address]Bjpyzenvvio in HDL [Mass/Vol]31 mg/dLLow>39ProUniversity Hospitals Geneva [facility] Center HospitalComment on above:Result Comment: HDL <40 mg/dL - High Risk HDL > or = 40mg/dL- Desirable HDL >60 mg/dL - Negative Risk Performed By: #### 84182-9 #### [facility] ([id number]) [address], [address] [place], [place] [address]Rnojswzkqlr in LDL [Mass/Vol]89 mg/dLNormal<130ProMediGood Samaritan Hospital HospitalComment on above:Result Comment: LDL <100 mg/dL - Desirable LDL >160 mg/dL - High Risk Performed By: #### 16477-2 #### [facility] ([id number]) [address], [address] [place], [place] [address]Fsakzizbsep in VLDL [Mass/Vol]46 mg/dLHigh0-30ProUniversity Hospitals [facility] Center HospitalComment on above:Performed By: #### 78986-0 #### [facility] ([id number]) [address], [address] [place], [place] [address]ZGLATPPLHYQ:HDL5.4High1.0-5.0ProUniversity [facility]als [facility] HospitalComment on above:Performed By: #### 47055-3 #### [facility] ([id number]) [address], [address] [place], [place] [address]Umuzxuhkjysk [Mass/Vol]232 mg/pPAwvt24-729OkuGtlmft [place] HospitalComment on above:Performed By: #### 98267-2 #### [facility] ([id number]) [address], [address] [place], [place] [address]UGIZ Hemoglobin A1con 16-28-8855KxY6k (Bld) [Mass fraction]7.5 g/dLAbnormal4 - 7 g/dLOhioHealth Marion General HospitalInterpretation and review of laboratory resultsAbnoCoatesville Veterans Affairs Medical CenterAlbumin on 56-24-5544Ncejfpx [Mass/Vol]4.0 g/dLNormal3.5-5.2MercHartford HospitalComment on above:Performed By: #### ALB, BMP, ESEQUIEL, CBC #### [address] [place] 9023649 ( Paper Sales Manager: Sony Rinaldi MD #### PTHNCA #### [address] [address] Paper Sales Manager: Mike Pereyrahealthsouth northern k[facility] rehabilitation [facility] Metabolic Profon 24-42-4187Ebiub gap [Moles/Vol]11 mmol/LNormal9-17Parkview HealthComment on above:Performed By: #### ALB, BMP, ESEQUIEL, CBC #### [address] [place] 9023683 Paper Sales Manager: Sony Rinaldi MD #### PTHNCA #### [address] [address] Paper Sales Manager: Vincent Sy MDBUN/CRE Swmqk07Jvaiet0-55Tomdd [facility] Comment on above:Performed By: #### ALB, BMP, ESEQUIEL, CBC #### [address] [place] 9023683 Paper Sales Manager: Sony Rinaldi MD #### PTHNCA #### [address] [address] Paper Sales Manager: MELLY Pereyraalcium [Mass/Vol]9.5 mg/dLNormal8.6-10.4Parkview HealthComment on above:Performed By: #### ALB, BMP, ESEQUIEL, CBC #### [address] [place] 3161683 Paper Sales Manager: Sony Rinaldi MD #### PTHNCA #### [place] [address] [place] [address] Paper Sales Manager: MELLY Pereyrahloride [Moles/Vol]106 mmol/GVutjjd61-019IviqzParkview HealthComment on above:Performed By: #### ALB, BMP, ESEQUIEL, CBC #### [address] [place] 3161683 Paper Sales Manager: Sony Rinaldi MD #### PTHNCA #### [place] 3099008 Paper Sales Manager: MELLY PereyraO2 [Moles/Vol]22 mmol/RRnmhwa93-16SaehnParkview HealthComment on above:Performed By: #### ALB, BMP, ESEQUIEL, CBC #### [address] [place] 3161683 Paper Sales Manager: Sony Rinaldi MD #### PTHNCA #### [place] 3099008 Paper Sales Manager: MELLY Pereyrareatinine [Mass/Vol]2.0 mg/dLHigh0.7-1.2Mercy Windham HospitalComment on above:Performed By: #### ALB, BMP, ESEQUIEL, CBC #### [address] [place] 3161683 Paper Sales Manager: Sony Rinaldi MD #### PTHNCA #### [place] [address] [place] [address] Paper Sales Manager: Vincent Sy MDGFR/1.73 sq M.predicted among non-blacks MDRD (S/P/Bld) [Vol rate/Area]43 mL/min/{1.73_m2}Low>60Parkview HealthComment on above:Result Comment: These results are [...] By: #### ALB, BMP, ESEQUIEL, CBC #### [address] [place] 3161683 Paper Sales Manager: Sony Rinaldi MD #### PTHNCA #### [address] [phone] Paper Sales Manager: Vincent Sy MDGlucose [Mass/Vol]181 mg/sZRcxh60-38WipkyTriHealth Good Samaritan HospitalComment on above:Performed By: #### ALB, BMP, ESEQUIEL, CBC #### [address] [place] 3161683 Paper Sales Manager: Sony Rinaldi MD #### PTHNCA #### [address] [phone] Paper Sales Manager: Syl Pereyrassium [Moles/Vol]4.8 mmol/LNormal3.7-5.3 Parkview HealthComment on above:Performed By: #### ALB, BMP, ESEQUIEL, CBC #### [address] [place] 3161683 Paper Sales Manager: Sony Rinaldi MD #### PTHNCA #### [address] [address] Paper Sales Manager: LISA Pereyraodium [Moles/Vol]139 mmol/RBsthtj735-405Hrbxo Tiffin HospitalComment on above:Performed By: #### ALB, BMP, ESEQUIEL, CBC #### [address] [place] [address] Paper Sales Manager: Sony Rinaldi MD #### PTHNCA #### [address] [address] Paper Sales Manager: Vincent Sy MDUrea nitrogen [Mass/Vol]29 mg/dLHigh6-20Parkview HealthComment on above:Performed By: #### ALB, BMP, ESEQUIEL, CBC #### [address] [place] 9023683 Paper Sales Manager: Sony Rinaldi MD #### PTHNCA #### [address] [address] Paper Sales Manager: MELLY Pereyraastrid 22-87-2523Oahxxrhskfm distribution width (RBC) [Ratio]14.2 %Baindy92.8-14.4Parkview HealthComment on above: Performed By: #### ALB, BMP, ESEQUIEL, CBC #### [address] [place] [address] Paper Sales Manager: Sony Rinaldi MD #### PTHNCA #### [address] [address] Paper Sales Manager: Vincent Sy MDHematocrit (Bld) [Volume fraction]49.9 %Normal 40.7-50.3Mercy Windham HospitalComment on above:Performed By: #### ALB, BMP, ESEQUIEL, CBC #### [address] [place] 9023683 Paper Sales Manager: Sony Rinaldi MD #### PTHNCA #### [address] [address] Paper Sales Manager: Vincent Sy MDHemoglobin (Bld) [Mass/Vol]16.3 g/dLNormal 13.0-17.0Parkview HealthComment on above:Performed By: #### ALB, BMP, ESEQUIEL, CBC #### [address] [place] 3161683 Paper Sales Manager: Sony Rinaldi MD #### PTHNCA #### [place] [phone] Paper Sales Manager: JODEE PereyraCH (RBC) [Entitic mass]28.7 gbEcyyzd21.2-33.5 [facility] HospitalComment on above:Performed By: #### ALB, BMP, ESEQUIEL, CBC #### [address] [place] 3161683 Paper Sales Manager: Sony Rinaldi MD #### PTHNCA #### [place] [address] Paper Sales Manager: JENS PereyraC (RBC) [Mass/Vol]32.7 g/jFGvvnxg43.4-34.8 Park[facility] HealthComment on above:Performed By: #### ALB, BMP, ESEQUIEL, CBC #### [address] [place] [address]23683 Paper Sales Manager: Sony Rinaldi MD #### PTHNCA #### [place] [address] Paper Sales Manager: TOOTIE Pereyra (RBC) [Entitic vol]88.0 gTOqmzdq57.6-102.9 Park[facility] HealthComment on above:Performed By: #### ALB, BMP, ESEQUIEL, CBC #### [address] [place] [address] Paper Sales Manager: Sony Rinaldi MD #### PTHNCA #### [place] [phone] Paper Sales Manager: Vincent Sy MDNRBC Automated0.0 per 100 WBCNormal0.0Parkview HealthComment on above:Performed By: #### ALB, BMP, ESEQUIEL, CBC #### [address] [place] [place] [address] Paper Sales Manager: Sony Rinaldi MD #### PTHNCA #### [address] [address] Paper Sales Manager: Jeffrey Pereyra mean volume (Bld) [Entitic vol]10.7 fL Normal8.1-13.5Parkview HealthComment on above:Performed By: #### ALB, BMP, ESEQUIEL, CBC #### [address] [place] [address]23683 Paper Sales Manager: Sony Rinaldi MD #### PTHNCA #### [place] [address] Paper Sales Manager: Sol Pereyrateerasmo (Bld) [#/Vol]230 10*3/gFLoilrq634-248 Park[facility] HealthComment on above:Performed By: #### ALB, BMP, ESEQUIEL, CBC #### [address] [place] [address]23683 Paper Sales Manager: Sony Rinaldi MD #### PTHNCA #### [place] [address] Paper Sales Manager: Vincent Sy MDRBC (Bld) [#/Vol]5.67 10*6/uLNormal4.21-5.77 Park[facility] HealthComment on above:Performed By: #### ALB, BMP, ESEQUIEL, CBC #### [address] [place], [place] 7345583 Paper Sales Manager: Sony Rinaldi MD #### PTHNCA #### [address] [address] Paper Sales Manager: Vincent Sy MDWBC (Bld) [#/Vol]7.2 10*3/uLNormal3.5-11.3Mer[facility] HospitalComment on above:Performed By: #### ALB, BMP, ESEQUIEL, CBC #### [address] [place] [address] Paper Sales Manager: Sony Rinaldi MD #### PTHNCA #### [address] [address] Paper Sales Manager: SIMEON Pereyra, [place] 15-57-6470SJO, Yzxwuw05.0 pg/mL Hfnlhn27-79EnqboMidState Medical CenterComment on above:Performed By: #### UTPHO, UTK, UTCA #### [address] [address] Paper Sales Manager: Vincent Sy MD [address] [place] [address] Paper Sales Manager: Sony Rinaldi MD #### UTTP, UTCRE #### [address] [place] 9023683 Paper Sales Manager: DOLLY Shayhosphorus, Inorg.on 50-86-2608Xfngggxylo, Inorg. 3.4 mg/dLNormal2.5-4.5Parkview HealthComment on above:Performed By: #### ALB, BMP, ESEQUIEL, CBC #### [address] [place] 9023683 Paper Sales Manager: Sony Rinaldi MD #### PTHNCA #### [address] [address] Paper Sales Manager: DOLLY Pereyrarotein,Tot,[place] 07-86-0832Xdvyvamomc [Mass/Vol]53.3 mg/pLKmiize26.0-259.0Parkview HealthComment on above: Performed By: #### URTPRT #### [address] [place] [address] Paper Sales Manager: Krystal Shayt Prot. Conc.57 mg/dLNormDayton Children's Hospital Comment on above:Result Comment: No normal range established.Performed By: #### URTPRT #### [facility] [address] [place], [place] 2207883 Paper Sales Manager: JURGEN Shay/Cre Ratio1.53Vdff8.00-0.20[facility] Comment on above:Performed By: #### URTPRT #### [facility] [address] [place], [place] 5234883 Paper Sales Manager: ANIYAH Shay Hemoglobin A1con 09-24-0990TcK9r (Bld) [Mass fraction]8.2 g/dLAbnormal4 - 7 g/dLOhioHealth Marion General HospitalInterpretation and review of laboratory resultsAbnormalProCity HospitalProMercy Health Allen Hospital SystemALT No additional P-5'-P [Catalytic activity/Vol]on 12-11-4638EVF [Catalytic activity/Vol]52 U/LHigh0-40T[facility]carawas HospitalComment on above:Performed By: #### 1744-2, 1919-10, 2156-08, 35376-3 #### [facility] ([id number]) [address], [address] [place], [place] [address]EALwu 21-19-8730FYR [Catalytic activity/Vol]32 U/LNormal0-41 [facility] HospitalComment on above:Performed By: #### 1744-2, 1919-10, 2156-08, 18747-5 #### [facility] ([id number]) [address], [address] [place], [place] [address]EI [Catalytic activity/Vol]on 14-69-5133BMC42 U/UWmshko91-378 [facility] HospitalComment on above:Performed By: #### 1744-2, 1919-10, 2156-08, 82625-6 #### [facility] ([id number]) [address], [address] [place], [place] [address]Edlzb 1996 panelon 88-09-9441Bkjctemslxb [Mass/Vol]140 mg/dLLow 150-200ProBaylor Scott & White Medical Center – Round RockComment on above:Performed By: #### 1744-2, 1919-10, 2156-08, 52489-1 #### [facility] ([id number]) [address], [address] [place], [place] [address]Ukvuuocqilf in HDL [Mass/Vol]35 mg/dLLow>39ProBaylor Scott & White Medical Center – Round RockComment on above:Result Comment: HDL <40 mg/dL - High Risk HDL > or = 40mg/dL- Desirable HDL >60 mg/dL - Negative Risk Performed By: #### 1744-2, 1919-10, 2156-08, #### [facility] ([id number]) [address], [address] [place], [place] [address]Evuhqhabeuw in LDL [Mass/Vol]62 mg/dLNormal<130ProBaylor Scott & White Medical Center – Round RockComment on above:Result Comment: LDL <100 mg/dL - Desirable LDL >160 mg/dL - High Risk Performed By: #### 1744-2, 1919-10, 2156-08, #### [facility] ([id number]) [address], [address] [place], [place] [address]Xiwamxfgfhx in VLDL [Mass/Vol]43 mg/dLHigh0-30ProBaylor Scott & White Medical Center – Round RockComment on above:Performed By: #### 1744-2, 1919-10, 2156-08, #### [facility] ([id number]) [address], [address] [place], [place] [address]QAVWZRTKFZQ:HDL4.3Oiljdj5.0-5.0ProBaylor Scott & White Medical Center – Round RockComment on above:Performed By: #### 1744-2, 1919-10, 2156-08, 02411-2 #### [facility] ([id number]) [address], [address] [place], [place] [address]Slbqgqdidkvx [Mass/Vol]213 mg/kGKcru52-798GozVhtsbcBaylor Scott & White Medical Center – Round RockComment on above:Performed By: #### 1744-2, 1919-10, 2156-08, 96902-7 #### [facility] ([id number]) [address], [address] [place], [place] [address]MRTT Hemoglobin A1con 34-22-2698IgT2v (Bld) [Mass fraction]7.3 g/dLAbnormal4 - 7 g/dLOhioHealth Marion General HospitalInterpretation and review of laboratory resultsAbnormalProCity HospitalProMercy Health Allen Hospital SystemCalcium, Ionicon 41-25-7890Ozsdcey [Moles/Vol]1.25 mmol/LNormal1.13-1.33MerMidState Medical CenterComment on above:Performed By: #### INEZ MAYES UTCA #### [facility] [employer] [address] [place] [address] Paper Sales Manager: Vincent Sy MD [facility] [address] [place] [address] Paper Sales Manager: Sony Rinaldi MD #### ZITA JACOBSON #### [facility] [address] [address] Paper Sales Manager: Sony Rinaldi MDLipid Profileon 21-27-5925Igqlhxjmmxh [Mass/Vol] 216 mg/dLHigh<200Mer[facility] HospitalComment on above:Result Comment: Cholesterol Guidelines: <200 Desirable 200-240 Borderline >240 UndesirablePerformed By: #### UTPHO, UTK, UTCA #### [facility] [address] [place] [address] Paper Sales Manager: Vincent Sy MD [address] [place], [place] 6796483 Paper Sales Manager: Sony Rinaldi MD #### UTMEHRAN, UTCRE #### [address] [place], [place] 8456383 Paper Sales Manager: Sony Rinaldi MDCholesterol in HDL [Mass/Vol]44 mg/dLNormal>40 Parkview HealthComment on above:Result Comment: HDL Guidelines: <40 Undesirable 40-59 Borderline >59 DesirablePerformed By: #### UTPSOPHIA, BERENICEK, UTCA #### [address] [address] Paper Sales Manager: Vincent Sy MD [address] [place], [place] 2962183 Paper Sales Manager: Sony Rinaldi MD #### KAVON, BERENICECRE #### [address] [place], [place] [address]3 Paper Sales Manager: MELLY Shayholesterol in LDL [Mass/Vol]113 mg/dLNormal0-130 Park[facility] HealthComment on above:Result Comment: LDL Guidelines: <100 Desirable 100-129 Near to/above Desirable 130-159 Borderline >159 Undesirable Direct (measured) LDL and calculated LDL are not interchangeable tests.Performed By: #### UTPHO, BERENICEK, UTCA #### [facility] [address] [place] [address] Paper Sales Manager: Vincent Sy MD [address] [place], [place] 7508483 Paper Sales Manager: Sony Rinaldi MD #### KAVON, UTCRE #### [address] [place] [address] Paper Sales Manager: MELLY Shayholesterol.total/Cholesterol in HDL [Mass ratio] 4.9 {ratio}Normal<5MerMidState Medical CenterComment on above:Performed By: #### INEZ MAYES, UTCA #### [employer] [address] [place] [address] Paper Sales Manager: Vincent Sy MD [address] [place] [address] Paper Sales Manager: Sony Rinaldi MD #### BERENICE JACOBSONCRE #### [address] [place] [address] Paper Sales Manager: Snoy Rinaldi MDTriglyceride [Mass/Vol]296 mg/dLHigh<150Mercy Windham HospitalComment on above:Result Comment: Triglyceride Guidelines: <150 Desirable 150-199 Borderline 200-499 High >499 Very high Based on AHA Guidelines for fasting triglyceride, December 2011.Performed By: #### INEZ MAYES, UTCA #### [employer] [address] [place] [address] Paper Sales Manager: Vincent Sy MD [address] [place] [address] Paper Sales Manager: Sony Rinaldi MD #### BERENICE JACOBSONCRE #### [address] [place] [address] Paper Sales Manager: Sony Rinaldi [facility], [place] 65-95-2527MPT, Abewul576.4 pg/mLHigh 14.0-72.0Mercy Windham HospitalComment on above:Result Comment: SAMPLES FROM PATIENTS ROUTINELY RECEIVING HIGH DOSE BIOTIN THERAPY MAY SHOW FALSELY DEPRESSED RESULTS. ADDITIONAL INFORMATION MAY BE REQUIRED FOR DIAGNOSIS.Performed By: #### INEZ MAYES, UTCA #### [employer] [address] [place] [address] Paper Sales Manager: Vincent Sy MD [address] [place] [address] Paper Sales Manager: Sony Rinaldi MD #### UTMEHRAN, UTCRE #### [address] [place] [address] Paper Sales Manager: Daniel Shay 10-82-4844VFB [Catalytic activity/Vol]47 U/L High<40Parkview HealthComment on above:Performed By: #### UTPHO, UTK, UTCA #### [facility] [address] [place] [address] Paper Sales Manager: Vincent Sy MD [address] [place] [address] Paper Sales Manager: Sony Rinaldi MD #### UTMEHRAN, UTCRE #### [address] [place] [address] Paper Sales Manager: Tim Shay Metabolic Profon 31-39-0558Mdguy gap [Moles/Vol]12 mmol/LNormal9-17Parkview HealthComment on above:Performed By: #### UTPHO, UTK, UTCA #### [address] [address] Paper Sales Manager: Vincent Sy MD [address] [place] [address] Paper Sales Manager: Sony Rinaldi MD #### UTMEHRAN, UTCRE #### [address] [place] [address] Paper Sales Manager: Sony Rinaldi MDBUN/CRE Bklng33Frjckm6-40Zjnfi [facility] Comment on above:Performed By: #### UTPHO, UTK, UTCA #### [facility] [address] [place] [address] Paper Sales Manager: Vincent Sy MD [address] [place] [address] Paper Sales Manager: Sony Rinaldi MD #### UTMEHRAN, UTCRE #### [address] [place], [place] 7036283 Paper Sales Manager: MELLY Shayalcium [Mass/Vol]8.9 mg/dLNormal8.6-10.4Parkview HealthComment on above:Performed By: #### UTPHO, UTK, UTCA #### [facility] [address] [place] [address] Paper Sales Manager: Vincent Sy MD [address] [place], [place] 7425983 Paper Sales Manager: Sony Rinaldi MD #### UTMEHARN, UTCRE #### [address] [place], [place] 7743583 Paper Sales Manager: MELLY Shayhloride [Moles/Vol]105 mmol/XLbtbrl79-676Yhjqk [facility]iffin HospitalComment on above:Performed By: #### UTPHO, UTK, UTCA #### [facility] [address] [place] [address] Paper Sales Manager: Vincent Sy MD [address] [place] [address] Paper Sales Manager: Sony Rinaldi MD #### KAVON, UTCRE #### [address] [place] [address] Paper Sales Manager: Sony Rinaldi MDCO2 [Moles/Vol]23 mmol/SXznrgm49-56KmiuyParkview HealthComment on above:Performed By: #### UTPHO, UTK, UTCA #### [facility] [address] [place] [address] Paper Sales Manager: Vincent Sy MD [address] [place], [place] 9597483 Paper Sales Manager: Sony Rinaldi MD #### UTTP, UTCRE #### [address] [place], [place] 6923783 Paper Sales Manager: MELLY Shayreatinine [Mass/Vol]2.2 mg/dLHigh0.7-1.2Mercy Windham HospitalComment on above:Performed By: #### UTPHO, UTK, UTCA #### [facility] [address] [place] [address] Paper Sales Manager: Vincent Sy MD [address] [place] [address] Paper Sales Manager: oSny Rinaldi MD #### UTMEHRAN, UTCRE #### [address] [place], [place] 8772283 Paper Sales Manager: Sony Rinaldi MDGFR/1.73 sq M.predicted among non-blacks MDRD (S/P/Bld) [Vol rate/Area]38 mL/min/{1.73_m2}Low>60Mercy Windham HospitalComment on above:Result Comment: These results are [...] secretion.Performed By: #### UTPBERENICE CORTESK, UTCA #### [facility] [address] [place] [address] Paper Sales Manager: Vincent Sy MD [address] [place], [place] 5944283 Paper Sales Manager: Sony Rinaldi MD #### UTMEHRAN, UTCRE #### [address] [place], [place] 9167483 Paper Sales Manager: Sony Rinaldi MDGlucose [Mass/Vol]174 mg/zOBsca95-88Clvmw Windham HospitalComment on above:Performed By: #### INEZ MAYES, UTCA #### [facility] [address] [place] [address] Paper Sales Manager: Vincent Sy MD [address] [place], [place] 3709483 Paper Sales Manager: Sony Rinaldi MD #### KAVON, UTCRE #### [address] [place] [address] Paper Sales Manager: DOLLY Shayotassium [Moles/Vol]4.5 mmol/LNormal3.7-5.3Mer[facility]pee HospitalComment on above:Performed By: #### INEZ MAYES, UTCA #### [address] [address] Paper Sales Manager: Vincent Sy MD [address] [place] [address] Paper Sales Manager: Sony Rinaldi MD #### KAVON, BERENICECRE #### [address] [place] [address] Paper Sales Manager: LISA Shayodium [Moles/Vol]140 mmol/QOkckjf266-716Wmyho Windham HospitalComment on above:Performed By: #### INEZ MAYES, UTCA #### [facility] [address] [place] [address] Paper Sales Manager: Vincent Sy MD [address] [place] [address] Paper Sales Manager: Sony Rinaldi MD #### UTMEHRAN, UTCRE #### [address] [place] [address] Paper Sales Manager: Sony Rinaldi MDUrea nitrogen [Mass/Vol]30 mg/dLHigh6-20Mer[facility] HospitalComment on above:Performed By: #### UTPHO, UTK, UTCA #### [facility] [address] [place] [address] Paper Sales Manager: Vincent Sy MD [address] [place] [address] Paper Sales Manager: Sony Rinaldi MD #### UTTP, UTCRE #### [address] [place] [address] Paper Sales Manager: MELLY Shayreatine Kinaseon 01-78-8232FH [Catalytic activity/Vol]110 U/DSengja23-570PkylfParkview HealthComment on above:Performed By: #### UTPHO, UTK, UTCA #### [address] [address] Paper Sales Manager: Vincent Sy MD [address] [place] [address] Paper Sales Manager: Sony Rinaldi MD #### UTMEHRAN, UTCRE #### [address] [place] [address] Paper Sales Manager: DOLLY Shayrotein,Tot,[place] 59-61-9707Gdmifsmctc [Mass/Vol]104.4 mg/kKLblpws85.0-259.0Parkview HealthComment on above: Performed By: #### UTPHO, UTK, UTCA #### [place] [address] [place] [address] Paper Sales Manager: Vincent Sy MD [address] [place] [address] Paper Sales Manager: Sony Rinaldi MD #### UTTP, UTCRE #### [address] [place] [address] Paper Sales Manager: Sony Rinaldi MDTot Prot. Conc.163 mg/dLNoSelect Medical Specialty Hospital - Southeast OhioComment on above:Result Comment: No normal range established.Performed By: #### UTPBERENICE CORTESK, UTCA #### [employer] [address] [place] [address] Paper Sales Manager: Vincent Sy MD [address] [place] [address] Paper Sales Manager: Sony Rinaldi MD #### KAVON, UTCRE #### [address] [place] [address] Paper Sales Manager: Sony Rinaldi MDTP/Cre Ratio1.91Ajrl2.00-0.20[facility] Comment on above:Performed By: #### INEZ MAYES, UTCA #### [facility] [employer] [address] [place] [address] Paper Sales Manager: Vincent Sy MD [address] [place] [address] Paper Sales Manager: Sony Rinaldi MD #### KAVON, UTCRE #### [address] [place] [address] Paper Sales Manager: Sony Rinaldi MDHemoglobin A1Con 54-84-3401Gnqyvle [Mass/Vol]103 mg/dLNoSelect Medical Specialty Hospital - Southeast OhioComment on above:Result Comment: The ADA and AACC recommend providing the estimated average glucose result to permit better patient understanding of their HBA1c result.Performed By: #### UTPBERENICE CORTESK, UTCA #### [facility] [address] [place] [address] Paper Sales Manager: Vincent Sy MD [address] [place] [address] Paper Sales Manager: Sony Rinaldi MD #### KAVON, UTCRE #### [address] [place] [address] Paper Sales Manager: Sony Rinaldi MDHbA1c (Bld) [Mass fraction]5.2 %Normal4.0-6.0[facility]view HealthComment on above:Performed By: #### INEZ MAYES, UTCA #### [employer] [address] [place] [address] Paper Sales Manager: Vincent Sy MD [address] [place] [address] Paper Sales Manager: Sony Rinaldi MD #### KAVON, BERENICECRE #### [address] [place] [address] Paper Sales Manager: Sony Rinaldi [facility], [place] 58-98-7697PNE, Xqnrvl388.6 pg/mLHigh 14.0-72.0[facility]view HealthComment on above:Result Comment: SAMPLES FROM PATIENTS ROUTINELY RECEIVING HIGH DOSE BIOTIN THERAPY MAY SHOW FALSELY DEPRESSED RESULTS. ADDITIONAL INFORMATION MAY BE REQUIRED FOR DIAGNOSIS.Performed By: #### INEZ MAYES, UTCA #### [employer] [address] [place] [address] Paper Sales Manager: Vincent Sy MD [address] [place] [address] Paper Sales Manager: Sony Rinaldi MD #### KAVON, UTCRE #### [address] [place] [address] Paper Sales Manager: Sony Rinaldi MDVitamin D 25 OHon 73-36-8598Isruvri D 25 OH21.6 ng/mLLow>29.9Parkview HealthComment on above:Result Comment: Reference Range: Vitamin D status Range Deficiency <20 ng/mL Mild Deficiency 20-30 ng/mL Sufficiency 30-100 ng/mL Toxicity >100 ng/mLPerformed By: #### INEZ MAYES, UTCA #### [employer] [address] [place] [address] Paper Sales Manager: Vincent Sy MD [address] [place] [address] Paper Sales Manager: Sony Rinaldi MD #### UTTP, UTCRE #### [address] [place], [place] [address]83 Paper Sales Manager: Sony Rinaldi MDAlbuminon 67-13-9971Whtyudu [Mass/Vol]4.3 g/dL Normal3.5-5.2MTriHealth Good Samaritan HospitalComment on above:Performed By: #### UTPHO, UTK, UTCA #### [facility] [address] [place] [address] Paper Sales Manager: Vincent Sy MD [address] [place] [address] Paper Sales Manager: Sony Rinaldi MD #### KAVON, UTCRE #### [address] [place], [facility]83 Paper Sales Manager: Sony Rinaldi MDBasic Metabolic Profon 17-11-2160Pejoh gap [Moles/Vol]11 mmol/LNormal9-17[facility]view HealthComment on above:Performed By: #### UTPHO, UTK, UTCA #### [facility] [address] [place] [address] Paper Sales Manager: Vincent Sy MD [address] [place], [facility]83 Paper Sales Manager: Sony Rinaldi MD #### UTTP, UTCRE #### [address] [place] [address] Paper Sales Manager: Sony Rinaldi MDBUN/CRE Zfufi92Upzkbl6-75[facility] Comment on above:Performed By: #### UTPHO, UTK, UTCA #### [facility] [address] [place] [address] Paper Sales Manager: Vincent Sy MD [address] [place] [address] Paper Sales Manager: Sony Rinaldi MD #### UTTP, UTCRE #### [address] [place], [place] 9[address]3883 Paper Sales Manager: MELLY Shayalcium [Mass/Vol]11.1 mg/dLHigh8.6-10.4Parkview HealthComment on above:Performed By: #### UTPHO, UTK, UTCA #### [facility] [address] [place] [address] Paper Sales Manager: Vincent Sy MD [address] [place] [address] Paper Sales Manager: Sony Rinaldi MD #### UTMEHRAN, UTCRE #### [address] [place] [address] Paper Sales Manager: MELLY Shayhloride [Moles/Vol]110 mmol/XHusq83-085DshntParkview HealthComment on above:Performed By: #### UTPHO, UTK, UTCA #### [facility] [address] [place] [address] Paper Sales Manager: Vincent Sy MD [address] [place] [address] Paper Sales Manager: Sony Rinaldi MD #### UTTP, UTCRE #### [address] [place] [address] Paper Sales Manager: MELLY ShayO2 [Moles/Vol]23 mmol/DGithrz36-73DvnfxParkview HealthComment on above:Performed By: #### UTPHO, UTK, UTCA #### [facility] [address] [place] [address] Paper Sales Manager: Vincent Sy MD [address] [place], [place] 5402483 Paper Sales Manager: Sony Rinaldi MD #### UTMEHRAN, UTCRE #### [address] [place], [place] 5598083 Paper Sales Manager: MELLY Shayreatinine [Mass/Vol]2.1 mg/dLHigh0.7-1.2[facility] HospitalComment on above:Performed By: #### UTPBERENICE CORTESK, UTCA #### [facility] [address] [place] [address] Paper Sales Manager: Vincent Sy MD [address] [place], [place] 5144683 Paper Sales Manager: Sony Rinaldi MD #### UTMEHRAN, UTCRE #### [address] [place] 5374783 Paper Sales Manager: Sony Rinaldi MDGFR/1.73 sq M.predicted among non-blacks MDRD (S/P/Bld) [Vol rate/Area]41 mL/min/{1.73_m2}Low>60Mer[facility] Windham HospitalComment on above:Result Comment: These results are [...] secretion.Performed By: #### UTPBERENICE CORTESK, UTCA #### [facility] [address] [place] [address] Paper Sales Manager: Vincent Sy MD [address] [place], [place] 2647883 Paper Sales Manager: Sony Rinaldi MD #### UTMEHRAN, UTCRE #### [address] [place] 8603183 Paper Sales Manager: Sony Rinaldi MDGlucose [Mass/Vol]116 mg/vAPdjd66-60FfgmjTriHealth Good Samaritan HospitalComment on above:Performed By: #### BERENICE MAYESK, UTCA #### [facility] [address] [place] [address] Paper Sales Manager: Vincent Sy MD [address] [place] [address] Paper Sales Manager: Sony Rinaldi MD #### UTMEHRAN, UTCRE #### [address] [place] [address] Paper Sales Manager: DOLLY Shayotassium [Moles/Vol]4.5 mmol/LNormal3.7-5.3[facility]ham HospitalComment on above:Performed By: #### INEZ MAYES, UTCA #### [facility] [address] [place] [address] Paper Sales Manager: Vincent Sy MD [address] [place] [address] Paper Sales Manager: Sony Rinaldi MD #### KAVON, UTCRE #### [address] [place] [address] Paper Sales Manager: LISA Shayodium [Moles/Vol]144 mmol/ZXoplzn533-002Zhipm Windham HospitalComment on above:Performed By: #### UTPBERENICE CORTESK, UTCA #### [facility] [address] [place] [address] Paper Sales Manager: Vincent Sy MD [address] [place] [address] Paper Sales Manager: Sony Rinaldi MD #### UTTP, UTCRE #### [address] [place] [address] Paper Sales Manager: Sony Rinaldi MDUrea nitrogen [Mass/Vol]30 mg/dLHigh6-20[facility] HealthComment on above:Performed By: #### UTPHO, UTK, UTCA #### [facility] [address] [place] [address] Paper Sales Manager: Vincent Sy MD [address] [place] [address] Paper Sales Manager: Sony Rinaldi MD #### UTTP, UTCRE #### [address] [place] [address] Paper Sales Manager: Chinmay Shay 39-23-7145Jmpifbhyabj distribution width (RBC) [Ratio]17.2 %High11.8-14.4[facility] HealthComment on above:Performed By: #### SUGEY, BERENICEK, UTCA #### [address] [address] Paper Sales Manager: Vincent Sy MD [address] [place] [address] Paper Sales Manager: Sony Rinaldi MD #### UTMEHRAN, UTCRE #### [address] [place] [address] Paper Sales Manager: Sony Rinaldi MDHematocrit (Bld) [Volume fraction]53.6 %High 40.7-50.3MTriHealth Good Samaritan HospitalComment on above:Performed By: #### UTPHO, UTK, UTCA #### [facility] [address] [place] [address] Paper Sales Manager: Vincent Sy MD [address] [place], [place] 4257883 Paper Sales Manager: Sony Rinaldi MD #### UTTP, UTCRE #### [address] [place], [place] 2450783 Paper Sales Manager: Sony Rinaldi MDHemoglobin (Bld) [Mass/Vol]17.2 g/wFKtfb00.0-17.0 [facility] HealthComment on above:Performed By: #### UTPHO, UTK, UTCA #### [facility] [address] [place] [address] Paper Sales Manager: Vincent Sy MD [address] [place], [place] 5439583 Paper Sales Manager: Sony Rinaldi MD #### UTTP, UTCRE #### [address] [place], [place] 0129183 Paper Sales Manager: JODEE ShayCH (RBC) [Entitic mass]27.2 vfOqeooo20.2-33.5 [facility] HealthComment on above:Performed By: #### UTPSOPHIA, UTK, UTCA #### [facility] [address] [place] [address] Paper Sales Manager: Vincent Sy MD [address] [place] [address] Paper Sales Manager: Sony Rinaldi MD #### UTMEHRAN, UTCRE #### [address] [place], [place] 617[address]83 Paper Sales Manager: JENS ShayC (RBC) [Mass/Vol]32.1 g/vLZlczbm68.4-34.8[facility] HealthComment on above:Performed By: #### UTPHO, UTK, UTCA #### [facility] [address] [place] [address] Paper Sales Manager: Vincent Sy MD [address] [place], [place] 8874283 Paper Sales Manager: Sony Rinaldi MD #### UTTP, UTCRE #### [address] [place], [place] 2154383 Paper Sales Manager: JODEE ShayCV (RBC) [Entitic vol]84.7 gYVjjulk44.6-102.[address] [facility] on above:Performed By: #### BERENICE MAYESK, UTCA #### [facility] [address] [place] [address] Paper Sales Manager: Vincent Sy MD [address] [place] [address] Paper Sales Manager: Sony Rinaldi MD #### KAVON, BERENICECRE #### [address] [place] [address] Paper Sales Manager: Sony Rinaldi MDNRBC Automated0.0 per [address] [facility] on above:Performed By: #### INEZ MAYES, UTCA #### [facility] [address] [place] [address] Paper Sales Manager: Vincent Sy MD [address] [place] [address] Paper Sales Manager: Sony Rinaldi MD #### KAVON, ZITA #### [address] [place] [address] Paper Sales Manager: Jeffrey Shay mean volume (Bld) [Entitic vol]9.5 fL Normal8.1-13.5[facility] on above:Performed By: #### SUGEY, BERENICEK, UTCA #### [facility] [address] [place] [address] Paper Sales Manager: Vincent Sy MD [address] [place] [address] Paper Sales Manager: Sony Rinaldi MD #### KAVON, BERENICECRE #### [address] [place] [address] Paper Sales Manager: Thu Shay (d) [#/Vol]280 10*3/kXRetsxl486-552 [facility] HealthComment on above:Performed By: #### UTPHO, UTK, UTCA #### [facility] [address] [place] [address] Paper Sales Manager: Vincent Sy MD [address] [place] [address] Paper Sales Manager: Sony Rinaldi MD #### UTTP, UTCRE #### [address] [place] [address] Paper Sales Manager: PETE Shay ([facility]) [#/Vol]6.33 10*6/uLHigh4.21-5.77[facility] HealthComment on above:Performed By: #### UTPHO, UTK, UTCA #### [facility] [address] [place] [address] Paper Sales Manager: Vincent Sy MD [address] [place] [address] Paper Sales Manager: Sony Rinaldi MD #### UTTP, UTCRE #### [address] [place] [address] Paper Sales Manager: RADHA Shay ([facility]) [#/Vol]8.9 10*3/uLNormal3.5-11.3MTriHealth Good Samaritan HospitalComment on above:Performed By: #### UTPHO, UTK, UTCA #### [facility] [address] [place] [address] Paper Sales Manager: Vincent Sy MD [address] [place] [address] Paper Sales Manager: Sony Rinaldi MD #### UTTP, UTCRE #### [address] [place], [place] 6424983 Paper Sales Manager: Dania Shaysphorus, Inorg.on 24-76-1920Tecxwjdauq, Inorg. 2.8 mg/dLNormal2.5-4.5[facility] HealthComment on above:Performed By: #### UTPHO, UTK, UTCA #### [employer] [address] [place] [address] Paper Sales Manager: Vincent Sy MD [address] [place] [address] Paper Sales Manager: Sony Rinaldi MD #### UTTP, UTCRE #### [address] [place] [address] Paper Sales Manager: DOLLY Shayrotein,Tot,[place] Uron 25-78-4882Nmqkeptbnr [Mass/Vol]91.1 mg/dIOyzica68.0-259.0[facility] HealthComment on above: Performed By: #### UTPHO, UTK, UTCA #### [facility] [employer] [address] [place] [address] Paper Sales Manager: Vincent Sy MD [address] [place] [address] Paper Sales Manager: Sony Rinaldi MD #### UTMEHRAN, UTCRE #### [address] [place], [facility]83 Paper Sales Manager: Sony Rinaldi MDTot Prot. Conc.185 mg/dLNormalParkview HealthComment on above:Result Comment: No normal range established.Performed By: #### UTPHO, UTK, UTCA #### [employer] [address] [place] [address] Paper Sales Manager: Vincent Sy MD [address] [place] [address]683 Paper Sales Manager: Sony Rinaldi MD #### UTTP, UTCRE #### [facility] [address] [place] [address] Paper Sales Manager: Sony Rinaldi MDTP/Cre Ratio2.96Flzk0.00-0.20[facility] Comment on above:Performed By: #### UTPHO, UTK, UTCA #### [facility] [address] [place], [place] 7087608 Paper Sales Manager: Vincent Sy MD [facility] [address] [place] [address] [place] [address] Paper Sales Manager: Sony Rinaldi MD #### KAVON, UTCRE #### [address] [place] [address] Paper Sales Manager: Sony Rinaldi MDUS BIOPSY RENAL LEFT PERCon 58-07-0898LY BIOPSY RENAL LEFT PERCEXAMINATION: ULTRASOUND GUIDED KIDNEY [...] Signed by: Juma Zuñiga MD 10/21/22 Final resultNoVan Wert County HospitalUS GUIDED NEEDLE PLACEMENTon 76-83-3981OV GUIDED NEEDLE PLACEMENTEXAMINATION: ULTRASOUND GUIDED KIDNEY BIOPSY [...] Signed by: Juma Zuñiga MD 10/21/22 Final resultNormalWright-Patterson Medical [facility] 96-59-1109fMJV Coag (Bld) [Time]20.7 sLow23.0-36.5St. Francis HospitalComment on above: Result Comment: IV Heparin Therapy Range: 66.0-92.0 secPerformed By: #### BMP, MG, CBC, PT, PTT #### [facility] [address] [place] [address] Paper Sales Manager: Vincent Sy [facility]ZE[facility] MEMORIAL HOSPITALMarc 94-33-6786GCC Coag (PPP) [Relative time]0.9 {INR}NormalSt. Francis HospitalComment on above:Result Comment: Therapeutic Range: Moderate Anticoagulant Intensity: INR = 2.0-3.0 High Anticoagulant Intensity: INR = 2.5-3.5Performed By: #### BMP, MG, CBC, PT, PTT #### [facility] [address] [place], [place] 3328108 Paper Sales Manager: LALO Pereyra Coag (PPP) [Time]12.3 jErkejg81.7-14.9St. Francis HospitalComment on above:Performed By: #### BMP, MG, CBC, PT, PTT #### [facility] [employer] [address] [place], [place] 7773208 Paper Sales Manager: DOLLY Pereyralatelet Counton 23-60-7932Djlpxtmul (Bld) [#/Vol]203 10*3/iQOvrsst630-433UmoveSt. Francis HospitalComment on above: Performed By: #### BMP, MG, CBC, PT, PTT #### [employer] [address] [place] [address] Paper Sales Manager: LISA Peryeraurgical Pathologyon 34-61-7778Zpryvufi Pathology(NOTE) Path Number: [id number] -- Diagnosis -- Left kidney, biopsy forwarded to [facility] for processing and interpretation. Paul Piper M.D. Electronically Signed Out tb03/13/2010/24/2022 Clinical Information Pre-op Diagnosis: CKD 3, KIDNEY FUSION, HIGH PROTEIN IN URINE, CREATININE 2.1; BUN 14; PT 12.3, PTT 20.7, INR 0.9 Operative Findings: LEFT KIDNEY tm Source of Specimen A: LEFT KIDNEY BIOPSY SENT OUT TO [facility] Intraoperative Diagnosis Episode #1: 3 cores, recommend additional. Episode #2: 1 core, adequate. (RDD) RDD Gross Description ELIAS WALKER, UNDESIGNATED Biopsies are examined at the time of biopsy for assessment of adequacy by Dr. Paul Piper. Four cores, 5-14 mm long and < 1 mm diameter. The specimen is subdivided and placed into appropriate transport medium and sent out [facility] in [place], [place]. Gross only. Ds tm RDD/tb1:10/24/2022 Microscopic Description Microscopic examination performed. Processing Lab: [address] [id number] Interpretation Performed at [address] [id number] SURGICAL PATHOLOGY CONSULTATION Patient Name: ELIAS WALKER Rec: [id number] [facility] ANATOMIC PATHOLOGY [address] [place], [place] [id number] NoVan Wert County HospitalCalcium,Timed Uron 46-85-1759Umcrvji [Mass/Vol]8.9 mg/dLNormDayton Children's HospitalComment on above:Performed By: #### BERENICE MAYESK, UTCA #### [address] [id number] Paper Sales Manager: Vincent Sy MD [address] [place] [address] Paper Sales Manager: Sony Rinaldi MD #### UTMEHRAN, UTCRE #### [address] [place] [address] Paper Sales Manager: MELLY Shayalcsean Excreted,Ur231 mg/24 uRglaci39-491VukztParkview HealthComment on above:Performed By: #### UTPBERENICE CORTESK, UTCA #### [address] [id number] Paper Sales Manager: Vincent Sy MD [address] [place] [address] Paper Sales Manager: Sony Rinaldi MD #### UTTP, UTCRE #### [address] [place] [address] Paper Sales Manager: Sony Rinaldi MDPhos,Inorg,Timed Uron 25-49-7400Bspk,Inorg,conc,Ur 43.1 mg/dLNormalParkview HealthComment on above:Performed By: #### UTPHO, UTK, UTCA #### [place] [address] [place] [address] Paper Sales Manager: Vincent Sy MD [address] [place] [address]23683 Paper Sales Manager: Sony Rinaldi MD #### UTTP, UTCRE #### [address] [place] [address]23683 Paper Sales Manager: DOLLY Shayhos,Inorg,Excret,Qw4734 mg/24 hZbaydq104-9227 [facility] HealthComment on above:Performed By: #### UTPSOPHIA, UTK, UTCA #### [address] [address] Paper Sales Manager: Vincent Sy MD [address] [place] [address] Paper Sales Manager: Sony Rinaldi MD #### UTTP, UTCRE #### [address] [place] [address] Paper Sales Manager: Syl Shayssium,Timed Uron 03-79-4471Pjwudbgxx [Moles/Vol]21.4 mmol/LNormalParkview HealthComment on above:Result Comment: No normal range established.Performed By: #### UTPHO, UTK, UTCA #### [address] [address] Paper Sales Manager: Vincent Sy MD [address] [place] [address] Paper Sales Manager: Sony Rinaldi MD #### UTTP, UTCRE #### [address] [place] [address] Paper Sales Manager: DOLLY Shayotassium Excreted,Ur56 mmol/24 lNulsjh35-909SsznfParkview HealthComment on above:Performed By: #### UTPHO, UTK, UTCA #### [address] [address] Paper Sales Manager: Vincent Sy MD [address] [place] [address] Paper Sales Manager: Sony Rinaldi MD #### UTTP, UTCRE #### [address] [place] [address]683 Paper Sales Manager: Maximo Shay, Timed Uron 47-33-5555Rzqxktypmq [Mass/Vol]68.8 mg/dLNormalParkview HealthComment on above:Performed By: #### UTPHO, UTK, UTCA #### [address] [address] Paper Sales Manager: Vincent Sy MD [address] [place] [address] Paper Sales Manager: Sony Rinaldi MD #### UTTP, UTCRE #### [address] [place], [place] [address] Paper Sales Manager: MELLY Shayreatinine Abpglbfn8534 mg/24 bCjavjq0803-3257 Park[facility] HealthComment on above:Performed By: #### UTPHO, UTK, UTCA #### [address] [address] Paper Sales Manager: Vincent Sy MD [address] [place], [place] 4021483 Paper Sales Manager: Sony Rinaldi MD #### UTTP, UTCRE #### [address] [place] [address] Paper Sales Manager: Sony Rinaldi MDVolume of Rkkhgcsqkq6932 Kindred HealthcareComment on above:Performed By: #### UTPHO, UTK, UTCA #### [facility] [address] [place] [address] Paper Sales Manager: Vincent Sy MD [address] [place] [address] Paper Sales Manager: Sony Rinaldi MD #### UTTP, UTCRE #### [address] [place] [address] Paper Sales Manager: Sony Rinaldi MDThree Crosses Regional Hospital [[email or web address]] [facility] Comment on above:Performed By: #### UTPHO, UTK, UTCA #### [facility] [address] [place] [address] Paper Sales Manager: Vincent Sy MD [address] [place] [address] Paper Sales Manager: Sony Rinaldi MD #### UTTP, UTCRE #### [address] [place] [address] Paper Sales Manager: Sony Rinaldi, MDProtein,Tot,Timed Uron 10-06-2022 Protein,Tot,conc,Ur123 mg/dLNoSelect Medical Specialty Hospital - Southeast OhioComment on above: Performed By: #### UTPHO, UTK, UTCA #### [facility] [address] [place] [address] Paper Sales Manager: Vincent Sy MD [address] [place] [address] Paper Sales Manager: Sony Rinaldi MD #### UTTP, UTCRE #### [address] [place], [place] 6512183 Paper Sales Manager: Sony Sturtz, MDProtein,Tot,Excret,[place] mg/24 hHigh<151[facility] Windham HospitalComment on above:Performed By: #### UTPSOPHIA, UTK, UTCA #### [facility] [address] [place] [address] Paper Sales Manager: Vincent Sy MD [address] [place], [place] 7965083 Paper Sales Manager: Sony Rinaldi MD #### UTMEHRAN, UTCRE #### [address] [place] [address] Paper Sales Manager: Sony Rinaldi MDAlbuminon 23-22-9570Txrgcfj [Mass/Vol]3.9 g/dL Normal3.5-5.2Mer[facility] Windham HospitalComment on above:Performed By: #### SUGEY, BERENICEK, UTCA #### [facility] [address] [place] [address] Paper Sales Manager: Vincent Sy MD [address] [place] [address] Paper Sales Manager: Sony Rinaldi MD #### UTMEHRAN, UTCRE #### [address] [place], [place] 8750583 Paper Sales Manager: Sony Rinaldi MDBasic Metabolic Profon 83-47-4935Txhcn gap [Moles/Vol]10 mmol/LNormal9-17Parkview HealthComment on above:Performed By: #### UTPHO, UTK, UTCA #### [facility] [address] [place] [address] Paper Sales Manager: Vincent Sy MD [address] [place] [address] Paper Sales Manager: Sony Rinaldi MD #### UTMEHRAN, UTCRE #### [address] [place], [place] 578[address]83 Paper Sales Manager: Sony Rinaldi MDBUN/CRE Bgwbj84Ozdprh1-58Qzvnv [facility] Comment on above:Performed By: #### BERENICE MAYESK, UTCA #### [facility] [address] [place] [address] Paper Sales Manager: Vincent Sy MD [address] [place] [address] Paper Sales Manager: Sony Rinaldi MD #### KAVON, BERENICECRE #### [address] [place] [address] Paper Sales Manager: Sony Rinaldi MDCalcium [Mass/Vol]10.5 mg/dLHigh8.6-10.4Parkview HealthComment on above:Performed By: #### INEZ MAYES, UTCA #### [facility] [address] [place] [address] Paper Sales Manager: Vincent Sy MD [address] [place] [address] Paper Sales Manager: Sony Rinaldi MD #### KAVON, BERENICECRE #### [address] [place] [address] Paper Sales Manager: Sony Rinaldi MDChloride [Moles/Vol]108 mmol/ATqlz07-633BoeyvParkview HealthComment on above:Performed By: #### BERENICE MAYESK, UTCA #### [facility] [address] [place] [address] Paper Sales Manager: Vincent Sy MD [address] [place] [address] Paper Sales Manager: Sony Rinaldi MD #### UTMEHRAN, UTCRE #### [address] [place] [address] Paper Sales Manager: Sony Rinaldi MDCO2 [Moles/Vol]22 mmol/KXrbdwl10-27CtcctParkview HealthComment on above:Performed By: #### UTPHO, UTK, UTCA #### [facility] [address] [place] [address] Paper Sales Manager: Vincent Sy MD [address] [place] [address] Paper Sales Manager: Sony Rinaldi MD #### UTTP, UTCRE #### [address] [place], [place] [id number] Paper Sales Manager: MELLY Shayreatinine [Mass/Vol]2.1 mg/dLHigh0.7-1.2MTriHealth Good Samaritan HospitalComascension st. john hospital on above:Performed By: #### UTPSOPHIA, BERENICEK, UTCA #### [address] [address] Paper Sales Manager: Vincent Sy MD [address] [place], [place] [id number] Paper Sales Manager: Sony Rinaldi MD #### UTMEHRAN, UTCRE #### [address] [place], [place] 1227383 Paper Sales Manager: Sony Rinaldi MDGFR/1.73 sq M.predicted among non-blacks MDRD (S/P/Bld) [Vol rate/Area]41 mL/min/{1.73_m2}Low>60Parkview HealthComment on above:Result Comment: These results are [...] secretion.Performed By: #### UTPHO, UTK, UTCA #### [facility] [employer] [address] [place] [address] Paper Sales Manager: Vincent Sy MD [address] [place] [address] Paper Sales Manager: Sony Rinaldi MD #### UTTP, UTCRE #### [address] [place] [address] Paper Sales Manager: Sony Rinaldi MDGlucose [Mass/Vol]139 mg/aQUnei21-47FpjqeTriHealth Good Samaritan HospitalComment on above:Performed By: #### UTPHO, UTK, UTCA #### [facility] [address] [place] [address] Paper Sales Manager: Vincent Sy MD [address] [place] [address] Paper Sales Manager: Sony Rinaldi MD #### UTMEHRAN, UTCRE #### [address] [place] [id number] Paper Sales Manager: DOLLY Shayotassium [Moles/Vol]4.8 mmol/LNormal3.7-5.3[facility] HospitalComment on above:Performed By: #### UTPSOPHIA, UTK, UTCA #### [facility] [address] [place] [address] Paper Sales Manager: Vincent Sy MD [address] [place], [facility]83 Paper Sales Manager: Sony Rinaldi MD #### KAVON, UTCRE #### [address] [place] [address] Paper Sales Manager: LISA Shayodium [Moles/Vol]140 mmol/JXnfxay229-550Gcjld Windham HospitalComment on above:Performed By: #### UTPHO, UTK, UTCA #### [facility] [address] [place] [address] Paper Sales Manager: Vincent Sy MD [address] [place], [place] 5992683 Paper Sales Manager: Sony Rinaldi MD #### UTTP, UTCRE #### [address] [place], [place] [phone] Paper Sales Manager: Sony Rinaldi MDUrea nitrogen [Mass/Vol]29 mg/dLHigh6-20Parkview HealthComment on above:Performed By: #### UTPSOPHIA, BERENICEK, UTCA #### [address] [address] Paper Sales Manager: Vincent Sy MD [address] [place] [address] Paper Sales Manager: Sony Rinaldi MD #### KAVON, UTCRE #### [address] [place] [id number] Paper Sales Manager: MELLY ShayThe Rehabilitation Institute of St. [facility] 73-13-1348Blleluuigon distribution width (RBC) [Ratio]16.4 %High11.8-14.4Parkview HealthComment on above:Performed By: #### BERENICE MAYESK, UTCA #### [facility] [address] [place] [address] Paper Sales Manager: Vincent Sy MD [address] [place] [phone] Paper Sales Manager: Sony Rinaldi MD #### KAVON, UTCRE #### [address] [place], [place] 8591683 Paper Sales Manager: Sony Rinaldi MDHematocrit (Bld) [Volume fraction]52.2 %High 40.7-50.3MTriHealth Good Samaritan HospitalComment on above:Performed By: #### UTPHO, UTK, UTCA #### [facility] [address] [place] [address] Paper Sales Manager: Vincent Sy MD [address] [place] [id number] Paper Sales Manager: Sony Rinaldi MD #### UTTP, UTCRE #### [address] [place], [place] [id number] Paper Sales Manager: Sony Rinaldi MDHemoglobin (Bld) [Mass/Vol]16.0 g/dLNormal 13.0-17.0[facility] HospitalComment on above:Performed By: #### UTPHO, UTK, UTCA #### [facility] [address] [place] [address] Paper Sales Manager: Vincent Sy MD [address] [place] [id number] Paper Sales Manager: Sony Rnialdi MD #### UTMEHRAN, UTCRE #### [address] [place] [phone] Paper Sales Manager: JODEE ShayCH (RBC) [Entitic mass]26.3 yoWhuflg51.2-33.5 [facility] HospitalComment on above:Performed By: #### UTPHO, UTK, UTCA #### [facility] [address] [place] [address] Paper Sales Manager: Vincent Sy MD [address] [place], [facility]83 Paper Sales Manager: Sony Rinaldi MD #### UTMEHRAN, UTCRE #### [address] [place], [place] 1137183 Paper Sales Manager: JENS ShayC (RBC) [Mass/Vol]30.7 g/fSVywapi16.4-34.8[facility] HospitalComment on above:Performed By: #### UTPHO, UTK, UTCA #### [facility] [address] [place] [address] Paper Sales Manager: Vincent Sy MD [address] [place] [address] Paper Sales Manager: Sony Rinaldi MD #### KAVON, UTCRE #### [address] [place] [address] Paper Sales Manager: JODEE ShayCV (RBC) [Entitic vol]85.9 cFYpghad77.6-102.9 Parkview HealthComment on above:Performed By: #### UTPBERENICE CORTESK, UTCA #### [address] [address] Paper Sales Manager: Vincent Sy MD [address] [place] [address] Paper Sales Manager: Sony Rinaldi MD #### KAVON, UTCRE #### [address] [place] [address] Paper Sales Manager: Sony Rinaldi MDNRBC Automated0.0 per 100 WBCNormal0.0Parkview HealthComment on above:Performed By: #### INEZ MAYES, UTCA #### [address] [address] Paper Sales Manager: Vincent Sy MD [address] [place] [address] Paper Sales Manager: Sony Rinaldi MD #### KAVON, UTCRE #### [address] [place], [facility]83 Paper Sales Manager: DOLLY Shaylatelet mean volume (Bld) [Entitic vol]10.0 fL Normal8.1-13.5Parkview HealthComment on above:Performed By: #### UTPHO, BERENICEK, UTCA #### [address] [address] Paper Sales Manager: Vincent Sy MD [address] [place] [address] Paper Sales Manager: Sony Rinaldi MD #### UTTP, UTCRE #### [address] [place] [address] Paper Sales Manager: Thu Shay (Bld) [#/Vol]267 10*3/uBFwqdvs480-986 Parkview HealthComment on above:Performed By: #### UTPHO, UTK, UTCA #### [facility] [address] [place] [address] Paper Sales Manager: Vincent Sy MD [address] [place] [address] Paper Sales Manager: Sony Rinaldi MD #### UTTP, UTCRE #### [address] [place] [address] Paper Sales Manager: PETE Shay (d) [#/Vol]6.08 10*6/uLHigh4.21-5.77Parkview HealthComment on above:Performed By: #### UTPHO, UTK, UTCA #### [facility] [address] [place] [address] Paper Sales Manager: Vincent Sy MD [address] [place] [address] Paper Sales Manager: Sony Rinaldi MD #### UTTP, UTCRE #### [address] [place] [address] Paper Sales Manager: DE Shay (d) [#/Vol]8.9 10*3/uLNormal3.5-11.3MTriHealth Good Samaritan HospitalComment on above:Performed By: #### UTPHO, UTK, UTCA #### [facility] [address] [place] [address] Paper Sales Manager: Vincent Sy MD [facility] [address] [place] [address] [place] [address] Paper Sales Manager: Sony Rinaldi MD #### KAVON, BERENICECRE #### [address] [place], [place] 0022883 Paper Sales Manager: SIMEON Shay, [place] 19-64-8083NUW, Bdfoqx894.1 pg/mLHigh 14.0-72.0Parkview HealthComment on above:Result Comment: SAMPLES FROM PATIENTS ROUTINELY RECEIVING HIGH DOSE BIOTIN THERAPY MAY SHOW FALSELY DEPRESSED RESULTS. ADDITIONAL INFORMATION MAY BE REQUIRED FOR DIAGNOSIS.Performed By: #### INEZ MAYES, BERENICECA #### [facility] [address] [place], [place] [phone] Paper Sales Manager: Vincent Sy MD [address] [place], [place] 9276183 Paper Sales Manager: Sony Rinaldi MD #### KAVON, ZITA #### [address] [place], [place] 6327683 Paper Sales Manager: Dania Shaysphojimmie, Inorg.on 99-59-7427Jxskvzcqwy, Inorg. 3.1 mg/dLNormal2.5-4.5Parkview HealthComment on above:Performed By: #### INEZ MAYES, BERENICECA #### [facility] [employer] [address] [place] [address] Paper Sales Manager: Vincent Sy MD [address] [place], [place] 7010783 Paper Sales Manager: Sony Rinaldi MD #### KAVON, UTCRE #### [address] [place], [place] 2113083 Paper Sales Manager: Sony Rinaldi MDAlbuminon 76-94-8047Rcvtvsi [Mass/Vol]4.3 g/dL3.5 - 5.2 g/dLBON [facility] LabourNetBasic Metabolic Panelon 81-84-3627Bvtmq gap [Moles/Vol]9 mmol/L9 - 17 mmol/LBON SECOURS MERCY HEALTHCalcium [Mass/Vol]12.0 mg/dLHigh8.6 - 10.4 mg/dLBON [facility] MERCY HEALTHChloride [Moles/Vol]109 mmol/L High98 - 107 mmol/LBON SECOURS [facility]OS[facility]ITALY HEALTHCO2 [Moles/Vol]24 mmol/L20 - 31 mmol/LBON [facility] HEALTHCreatinine [Mass/Vol]1.95 mg/dLHigh0.70 - 1.20 mg/dLBON SECOURS ITmedia KK HEALTHGFR/1.73 sq M.predicted MDRD (S/P/Bld) [Vol rate/Area]44 mL/min/{1.73_m2}Low- PINFBON SECSUMMIT PACIFIC MEDICAL CENTERANF Technology [facility]ARY[facility]OUNT HOSPITALComment on above: These results are not [...] secretion. Glucose [Mass/Vol]93 mg/dL70 - 99 mg/dLBON [facility] - GILBERTCurexo TechnologyInterpretation and review of laboratory resultsAbnormalBON [facility] ITmedia KK HEALTHPotassium [Moles/Vol]5.1 mmol/L3.7 - 5.3 mmol/LBON [facility] ITmedia KK [facility] HOSPITALSodium [Moles/Vol] 142 mmol/L135 - 144 mmol/LBON [facility] Global Active HEALTHUrea nitrogen [Mass/Vol]28 mg/dLHigh6 - 20 mg/dLBON SECSUMMIT PACIFIC MEDICAL CENTERTinkoff DigitalUrea nitrogen/Creatinine [Mass ratio]14 mg/mg9 - 20BON PLACENTIA-LINDA HOSPITALTinkoff DigitalCBC with Auto Differentialon 06-00-0444Mvsweprgz (Bld) [#/Vol]0.04 10*3/uLBON SECIxtens HEALTH Basophils/100 WBC (Bld)1 %0 - 2 %BON PLACENTIA-LINDA HOSPITALANF Technology [facility]ARY[facility] HOSPITALEosinophils (Bld) [#/Vol]0.13 10*3/uLBON [facility] - GILBERTOURS SHELTERING ARMS HOSPITALEosinophils/100 WBC (Bld)2 %1 - 4 % [facility] COMM[facility] HOSPITALErythrocyte distribution width (RBC) [Ratio]15.9 %High 11.8 - 14.4 %[facility] HOSPITALHematocrit (Bld) [Volume fraction]47.0 % 40.7 - 50.3 %[facility] HOSPITALHemoglobin (Bld) [Mass/Vol]14.6 g/dL13.0 - 17.0 g/dLBON SECMERCY HEALTH ST. CHARLES HOSPITALImmature granulocytes (Bld) [#/Vol]BON [facility] - GILBERTOURS SHELTERING ARMS HOSPITALImmature granulocytes/100 WBC (Bld)0 %0[facility] Interpretation and review of laboratory resultsAbnormalCARILION [facility] Lymphocytes/100 WBC (Bld)38 %24 - 43 %[facility] COMMUN[facility] HOSPITALLymphocytes/100 WBC (Bld)2.98 %[facility]ALTH SYSTEMH (RBC) [Entitic mass]27.5 pg25.2 - 33.5 pgBON [facility] HOSPITALHC (RBC) [Mass/Vol]31.1 g/dL28.4 - 34.8 g/dLBON [facility] SHELBY HOSPITALV (RBC) [Entitic vol]88.5 fL82.6 - 102.9 fLCARILION ROANOKE COMMUNITY HOSPITALMonocytes/100 WBC (Bld)10 %3 - 12 %[facility] Monocytes/100 WBC (Bld)0.82 %[facility] HOSPITALNeutrophils/100 WBC (Bld)49 %36 - 65 %[facility] HOSPITALNRBC Automated0.00.0 per 100 WBCCARILION ROANOKE COMMUNITY HOSPITALPlatelet mean volume (Bld) [Entitic vol]9.6 fL8.1 - 13.5 fLCARILION ROANOKE COMMUNITY HOSPITALPlatelets (Bld) [#/Vol]327 10*3/uLBON [facility] RBC (Bld) [#/Vol]5.31 10*6/uL4.21 - 5.77 m/uLBON [facility] METHODIST HOSPITALSegmented neutrophils/100 WBC (Bld)3.91 %[facility] COMMUN[facility] HOSPITALWBC other (Bld) [#/Vol] 7.9BON [facility] SECMERCY HEALTH ST. CHARLES HOSPITALCreatinine, Random Urineon 92-86-9388Tkhllwhgce (U) [Mass/Vol]67.6 mg/dL39.0 - 259.0 mg/dLBON [facility] HOSPITALBON SECSAVOY MEDICAL [facility]ENTER HEALTHMagnesiumon 67-36-4591Appsupuzz [Mass/Vol]2.0 mg/dL1.6 - 2.6 mg/dLBON [facility] HOSPITALNo Panel Informationon 99-22-7826UOP [facility] HOSPITALPhosphoruson 78-07-8003Yydcylsyn [Mass/Vol]3.0 mg/dL2.5 - 4.5 mg/dLBON [facility] HOSPITALProtein, urine, randomon 30-62-3684Ggdsbmp (U) [Mass/Vol]50 mg/dLBON [facility] METHODIST HOSPITALComment on above:No normal range established.BON [facility] HOSPITALBasic Metab w/rfx MGon 94-15-2873Kgeik gap [Moles/Vol]9 mmol/LNormal9-17St. Francis HospitalComment on above: Performed By: #### RICHIE BROWNHGHayden, CDP #### [employer] [address] [place] [address] Paper Sales Manager: MELLY Pereyraalcium [Mass/Vol]10.0 mg/dLNormal8.6-10.4St. Francis HospitalComment on above:Performed By: #### PT GLYHGB, CDP #### [facility] [address] [place] [address] Paper Sales Manager: MELLY Pereyrahloride [Moles/Vol]110 mmol/NKidu18-010HltqdSt. Francis HospitalComment on above:Performed By: #### PT GLYHGB, CDP #### [employer] [facility] [address] [place] [address] Paper Sales Manager: Vincent Sy MDCO2 [Moles/Vol]17 mmol/ETst51-48FfqfySt. Francis HospitalComment on above:Performed By: #### PT, GLYHGB, CDP #### [facility] [employer] [address] [place] [address] Paper Sales Manager: MELLY Pereyrareatinine [Mass/Vol]2.05 mg/dLHigh0.70-1.20 [facility] [facility] HospitalComment on above:Performed By: #### PT, GLYHGB, CDP #### [facility] [employer] [address] [place] [address] Paper Sales Manager: Vincent Sy MDGFR/1.73 sq M.predicted among non-blacks MDRD (S/P/Bld) [Vol rate/Area]42 mL/min/{1.73_m2}Low>60St. Francis HospitalComment on above:Result Comment: These results are [...] secretion.Performed By: #### STEPHANIE GLYHGB, CDP #### [facility] [employer] [address] [place] [address] Paper Sales Manager: Vincent Sy MDGlucose [Mass/Vol]122 mg/cFIdyh37-58PvgiqSanta Ana Hospital Medical CenterComment on above:Performed By: #### PT, GLYHGB, CDP #### [facility] [employer] [address] [place] [address] Paper Sales Manager: DOLLY Pereyraotassium [Moles/Vol]5.8 mmol/LHigh3.7-5.3MSanta Ana Hospital Medical CenterComment on above:Performed By: #### PT, GLYHGB, CDP #### [facility] [employer] [address] [place] [address] Paper Sales Manager: Vincent Sy MDSodium [Moles/Vol]136 mmol/TFcxuox670-599VushaSt. Francis HospitalComment on above:Performed By: #### PT, GLYHGB, CDP #### [facility] [address] [place] [address] Paper Sales Manager: Vincent Sy MDUrea nitrogen [Mass/Vol]37 mg/dLHigh6-20St. Francis HospitalComment on above:Performed By: #### PT, GLYHGB, CDP #### [facility] [address] [place] [address] Paper Sales Manager: Vincent Sy MDPlatelet Counton 10-56-0479Gpmnxvlhv (Bld) [#/Vol]267 10*3/wQYwutrz483-762ZzgbcSt. Francis HospitalComment on above: Performed By: #### PLT #### [facility] [address] [place] [address] Paper Sales Manager: Vincent Sy MDAlbuminon 24-75-0120Rouploy [Mass/Vol]4.2 g/dL 3.5 - 5.2 g/dLBON SECOURS MERCY HEALTHBasic Metabolic Panelon 94-29-2678Dlbjt gap [Moles/Vol]12 mmol/L9 - 17 mmol/LBON [facility]RS MERCY HEALTHCalcium [Mass/Vol] 11.3 mg/dLHigh8.6 - 10.4 mg/dLBON [facility] MERCY HEALTHChloride [Moles/Vol]107 mmol/L98 - 107 mmol/LBON [facility]CY HEALTHCO2 [Moles/Vol]19 mmol/LLow20 - 31 mmol/LBON [facility] HEALTHCreatinine [Mass/Vol]2.34 mg/dLHigh0.70 - 1.20 mg/dLBON [facility] MERCY HEALTHGFR/1.73 sq M.predicted MDRD (S/P/Bld) [Vol rate/Area]36 mL/min/{1.73_m2}Low- PINFBON SECOURS Global ActiveY HEALTHComment on above: These results are not [...] that affects renal tubular secretion. Glucose [Mass/Vol]106 mg/vNHhze56 - 99 mg/dLBON [facility] Interpretation and review of laboratory resultsAbnormalCARILION [facility] Potassium [Moles/Vol]5.4 mmol/LHigh3.7 - 5.3 mmol/LBON [facility] Sodium [Moles/Vol]138 mmol/L135 - 144 mmol/LBON [facility] METHODIST HOSPITALUrea nitrogen [Mass/Vol]42 mg/dLHigh6 - 20 mg/dLBON [facility]ERS[facility] METHODIST HOSPITALUrea nitrogen/Creatinine (Bld) [Mass ratio]189 - 20BON [facility] HOSPITALCBCon 76-86-9109Jvkopsrvap (Bld) [Volume fraction]39.5 %Low40.7 - 50.3 %[facility] HOSPITALHemoglobin (Bld) [Mass/Vol]12.2 g/dLLow13.0 - 17.0 g/dLBON [facility] HOSPITALInterpretation and review of laboratory resultsAbnormalWELLMONT HEALTH SYSTEMH (RBC) [Entitic mass]27.1 pg25.2 - 33.5 pgBON [facility] HOSPITALHC (RBC) [Mass/Vol]30.9 g/dL28.4 - 34.8 g/dLBON [facility] HOSPITALV (RBC) [Entitic vol]87.8 fL82.6 - 102.9 fLCARILION ROANOKE COMMUNITY HOSPITALNRBC Automated 0.00.0 per 100 WBCBON [facility] METHOD[facility] HOSPITALPlatelet distribution width (Bld) [Ratio]14.1 %11.8 - 14.4 %BON [facility] METHODIST HOSPITALPlatelet mean volume (Bld) [Entitic vol]9.7 fL8.1 - 13.5 fLSMYTH COUNTY COMMUNITY HOSPITAL HEALTHPlatelets (Bld) [#/Vol] 425 10*3/uLBON [facility] METHODIST HOSPITALRBC (Bld) [#/Vol]4.50 10*6/uL4.21 - 5.77 m/uL [facility] HOSPITALWBC (Bld) [#/Vol]6.9 10*3/uLCHILDREN'S HOSPITAL OF RICHMOND AT VCUCalcium, Ionizedon 33-45-6523Ayscgvh.ionized (Bld) [Moles/Vol]1.51 mmol/LHigh1.13 - 1.33 mmol/LBON [facility] Interpretation and review of laboratory resultsAbnormalCARILION RO[facility]OKE [facility]ITAL BON [facility]ITALNo Panel Informationon 20-84-7144OYS [facility] METHODIST HOSPITALPTH, [place] 86-05-4469Voqjuauaozddje and review of laboratory results AbnormalBON [facility] METHOD[facility] HOSPITALParathyrin.intact [Mass/Vol]248.7 pg/mJFrhr76.0 - 72.0 pg/mLCARILION ROANOKE COMMUNITY HOSPITALComment on above:SAMPLES FROM PATIENTS ROUTINELY RECEIVING HIGH DOSE BIOTIN THERAPY MAY SHOW FALSELY DEPRESSED RESULTS. ADDITIONAL INFORMATION MAY BE REQUIRED FOR DIAGNOSIS. [facility] HOSPITALPhosphoruson 13-71-4547Kwtvgzumg [Mass/Vol]3.1 mg/dL2.5 - 4.5 mg/dLBON [facility] HOSPITALProtein / creatinine ratio, urineon 13-30-7925Xvtrvnhjcw, Ur89.3 mg/dL39.0 - 259.0 mg/dLBON [facility] Interpretation and review of laboratory resultsAbnoCarilion New River [facility] Medical Center Protein (U) [Mass/Vol]28 mg/dLBON [facility] HOSPITALComment on above:No normal range established.Urine Total Protein Creatinine Ratio0.27Vtwi5.00 - 0.20[facility] AT VCUBasic Metabolic Panelon 06-06-2022 Anion gap [Moles/Vol]12 mmol/L9 - 17 mmol/LBON [facility] SchedulicityCalcium [Mass/Vol]9.6 mg/dL8.6 - 10.4 mg/dLBON [facility] HOSPITALChloride [Moles/Vol] 99 mmol/L98 - 107 mmol/LBON [facility] HOSPITALCO2 [Moles/Vol]21 mmol/L20 - 31 mmol/LBON [facility] HOSPITALCreatinine [Mass/Vol]2.01 mg/dLHigh0.70 - 1.20 mg/dLBON [facility] HOSPITALGFR/1.73 sq M.predicted MDRD (S/P/Bld) [Vol rate/Area]43 mL/min/{1.73_m2}Low- PINFBON [facility]ERSIDE METHODIST HOSPITALGlucose [Mass/Vol] 144 mg/eMQixs83 - 99 mg/dLBON [facility] HOSPITALInterpretation and review of laboratory resultsAbnormalBON [facility] HOSPITALPotassium [Moles/Vol]4.3 mmol/L3.7 - 5.3 mmol/LBON [facility] METHODIST HOSPITALSodium [Moles/Vol]132 mmol/JZhp752 - 144 mmol/LBON [facility] METHODIST HOSPITALUrea nitrogen [Mass/Vol]27 mg/dLHigh6 - 20 mg/dLBON [facility] METHOD[facility] HOSPITALBasic Metabolic Profon 21-59-3909Pantr gap [Moles/Vol]12 mmol/LNormal9-17St. Francis HospitalComment on above: Performed By: #### PT, GLYHGB, CDP #### [employer] [address] [place] [address] Paper Sales Manager: MELLY Pereyraalcium [Mass/Vol]9.6 mg/dLNormal8.6-10.4St. Francis HospitalComment on above:Performed By: #### PT GLYHGB, CDP #### [employer] [address] [place] [address] Paper Sales Manager: MELLY Pereyrahloride [Moles/Vol]99 mmol/XJajfjf06-991OcpmhSt. Francis HospitalComment on above:Performed By: #### PT, GLYHGB, CDP #### [employer] [address] [place] [address] Paper Sales Manager: Vincent Sy MDCO2 [Moles/Vol]21 mmol/BEfifrk02-15XcjarSt. Francis HospitalComment on above:Performed By: #### PT, GLYHGB, CDP #### [employer] [address] [place] [address] Paper Sales Manager: MELLY Pereyrareatinine [Mass/Vol]2.01 mg/dLHigh0.70-1.20 [facility] HospitalComment on above:Performed By: #### RICHIE BROWNHGB, CDP #### [address] [address] Paper Sales Manager: Vincent Sy MDGFR/1.73 sq M.predicted among non-blacks MDRD (S/P/Bld) [Vol rate/Area]43 mL/min/{1.73_m2}Low>60St. Francis HospitalComment on above:Result Comment: These results are [...] secretion.Performed By: #### BRITTANEY BROWN, CDP #### [facility] [employer] [address] [place] [address] Paper Sales Manager: Vincent Sy MDGlucose [Mass/Vol]144 mg/hFIxgu94-52BmcxfSanta Ana Hospital Medical CenterComment on above:Performed By: #### BRITTANEY BROWN, CDP #### [facility] [employer] [address] [place] [address] Paper Sales Manager: Vincent Sy MDPotassium [Moles/Vol]4.3 mmol/LNormal3.7-5.3 [facility] HospitalComment on above:Performed By: #### STEPHANIE GLYHGHayden, CDP #### [facility] [employer] [address] [place] [address] Paper Sales Manager: LISA Pereyraodium [Moles/Vol]132 mmol/FEbd901-867ZylowSt. Francis HospitalComment on above:Performed By: #### PT, GLYHGB, CDP #### [facility] [address] [place] [address] Paper Sales Manager: Vincent Sy MDUrea nitrogen [Mass/Vol]27 mg/dLHigh6-20St. Francis HospitalComment on above:Performed By: #### PT, GLYHGB, CDP #### [facility] [address] [place] [address] Paper Sales Manager: MELLY Pereyraastrid 96-66-4645Zlxpjeleoxy distribution width (RBC) [Ratio]13.2 %Ifwkma16.8-14.4St. Francis HospitalComment on above:Performed By: #### PT, GLYHGB, CDP #### [facility] [address] [place] [address] Paper Sales Manager: Vincent Sy MDHematocrit (Bld) [Volume fraction]30.3 %Low 40.7-50.3MSanta Ana Hospital Medical CenterComment on above:Performed By: #### PT, GLYHGB, CDP #### [facility] [employer] [address] [place] [address] Paper Sales Manager: Vincent Sy MDHemoglobin (Bld) [Mass/Vol]10.1 g/dLLow13.0-17.0 [facility] [facility] HospitalComment on above:Performed By: #### PT, GLYHGB, CDP #### [facility] [address] [place] [address] Paper Sales Manager: JODEE PereyraCH (RBC) [Entitic mass]29.[address]97.2-[address]5 [address] [facility] HospitalComment on above:Performed By: #### PT, GLYHGB, CDP #### [facility] [employer] [address] [place] [id number] Paper Sales Manager: JODEE PereyraCHC (RBC) [Mass/Vol]33.3 g/aAGhwqdp71.4-34.8 [facility] HospitalComment on above:Performed By: #### PT, GLYHGB, CDP #### [facility] [address] [place] [id number] Paper Sales Manager: TOOTIE Pereyra (RBC) [Entitic vol]89.[address] [facility] HospitalComment on above:Performed By: #### PT, GLYHGB, CDP #### [facility] [address] [place] [address] Paper Sales Manager: BRAYDON Pereyra Automated0.0 per [address] Francis HospitalComment on above:Performed By: #### PT, GLYHGB, CDP #### [facility] [employer] [address] [place] [address] Paper Sales Manager: Jeffrey Pereyra mean volume (Bld) [Entitic vol]10.0 fL Normal8.1-13.5St. Francis HospitalComment on above:Performed By: #### PT, GLYHGB, CDP #### [facility] [address] [place] [address] Paper Sales Manager: Thu Pereyra (Bld) [#/Vol]243 10*3/xKNitqza068-521 [facility] HospitalComment on above:Performed By: #### PT, GLYHGB, CDP #### [facility] [address] [place] [address] Paper Sales Manager: MARSHA PereyraBC (Bld) [#/Vol]3.39 10*6/uLLow4.21-5.77St. Francis HospitalComment on above:Performed By: #### PT, GLYHGB, CDP #### [facility] [employer] [address] [place] [address] Paper Sales Manager: Vincent Madoff, MDWBC (Bld) [#/Vol]11.3 10*3/uLNormal3.5-11.3[facility] Usaf Medical CenterComment on above:Performed By: #### BRITTANEY BROWN CDP #### [employer] [address] [place] [address] Paper Sales Manager: Vincent Sy MDHematocrit (Bld) [Volume fraction]30.3 %Low40.7 - 50.3 %[facility] HOSPITALHemoglobin (Bld) [Mass/Vol]10.1 g/dLLow13.0 - 17.0 g/dLBON [facility] HOSPITALInterpretation and review of laboratory results AbnormalBON [facility] HOSPITALH (RBC) [Entitic mass]29.8 pg25.2 - 33.5 pgBON [facility] HOSPITALHC (RBC) [Mass/Vol]33.3 g/dL28.4 - 34.8 g/dLBON SECOHIOHEALTH GRADY MEMORIAL HOSPITALV (RBC) [Entitic vol]89.4 fL82.6 - 102.9 fLCARILION ROANOKE COMMUNITY HOSPITALNRBC Automated0.00.0 per 100 WBCBON [facility] HOSPITALPlatelet distribution width (Bld) [Ratio]13.2 %11.8 - 14.4 %[facility] Platelet mean volume (Bld) [Entitic vol]10.0 fL8.1 - 13.5 fLSMYTH COUNTY COMMUNITY HOSPITAL HEALTHPlatelets (Bld) [#/Vol]243 10*3/uLBON [facility] HOSPITALRBC (Bld) [#/Vol]3.39 10*6/uLLow4.21 - 5.77 m/uLBON [facility] HOSPITALWBC (Bld) [#/Vol] 11.3 10*3/uLBON [facility] HOSPITALCalcium, Ionicon 94-17-4011Cqbkfwv [Moles/Vol]1.32 mmol/LNormal1.13-1.33[facility]af Medical CenterComment on above:Performed By: #### BRITTANEY BROWN CDP #### [employer] [address] [place], [place] [phone] Paper Sales Manager: Vincent Sy MDCalcium, Ionizedon 48-15-5967Wsvwlcc.ionized (Bld) [Moles/Vol]1.32 mmol/L1.13 - 1.33 mmol/LBON [facility] HOSPITALMagnesiumon 40-71-8224Fyrkiqfzx [Mass/Vol]2.1 mg/dLNormal 1.6-2.6[facility] Medical CenterComment on above:Performed By: #### PT, GLYHGB, CDP #### [facility] [address] [place], [place] 653[address] Paper Sales Manager: Vincent Sy MDMagnesium [Mass/Vol]2.1 mg/dL1.6 - 2.6 mg/dLBON [facility]ITALNo Panel Informationon 71-94-5566TAO [facility] Glucose Fingerstickon 76-73-0291Kveccim [Mass/Vol]175 mg/nYElsp27 - 110 mg/dL [facility]OSPITALInterpretation and review of laboratory resultsAbnormal [facility] VCUGlucose [Mass/Vol]133 mg/dLHigh 75 - 110 mg/dLBON [facility]OSPITALInterpretation and review of laboratory resultsAbnormalCHILDREN'S HOS[facility] AT VCUXR CHEST PORTABLE on 37-78-8765QN CHEST PORTABLEEXAMINATION: ONE X-RAY VIEW OF THE [...] by: Cholo Restrepo MD 06/06/22 Final resultNormalMercy David Grant Usaf Medical CenterXR CHEST PORTABLEEXAMINATION: ONE XRAY VIEW [...] Signed by: David Gabriel MD 06/05/22 Final resultNormalMerKaiser Foundation HospitalBasic Metabolic Panelon 28-98-5528Zzoiq gap [Moles/Vol]8 mmol/LLow9 - 17 mmol/LBON [facility] Calcium [Mass/Vol]9.1 mg/dL8.6 - 10.4 mg/dLBON [facility] MERCY HEALTHChloride [Moles/Vol]102 mmol/L98 - 107 mmol/LBON [facility] MERCY HEALTHCO2 [Moles/Vol]22 mmol/L20 - 31 mmol/LBON [facility]CY HEALTHCreatinine [Mass/Vol]2.28 mg/dLHigh 0.70 - 1.20 mg/dLBON [facility]OURS MERCY HEALTHGFR/1.73 sq M.predicted MDRD (S/P/Bld) [Vol rate/Area]37 mL/min/{1.73_m2}Low- PINFBON SECOURS MERCY HEALTHGlucose [Mass/Vol]150 mg/dGWinj48 - 99 mg/dLBON [facility] MERCY HEALTHInterpretation and review of laboratory resultsAbnormalBON [facility] MERCY HEALTHPotassium [Moles/Vol]4.8 mmol/L3.7 - 5.3 mmol/LBON [facility] MERCY HEALTHSodium [Moles/Vol] 132 mmol/CYtj933 - 144 mmol/LBON [facility] MERCY HEALTHUrea nitrogen [Mass/Vol]23 mg/dLHigh6 - 20 mg/dLBON SECOURS MERCY HEALTHBasic Metabolic Profon 06-05-2022 Anion gap [Moles/Vol]8 mmol/LLow9-17St. Francis HospitalComment on above:Performed By: #### PLT #### [address] [address] Paper Sales Manager: MELLY Pereyraalcium [Mass/Vol]9.1 mg/dLNormal8.6-10.4St. Francis HospitalComment on above:Performed By: #### PLT #### [facility] [address] [place] [address] Paper Sales Manager: Vincent Sy MDChloride [Moles/Vol]102 mmol/KCdfqlk48-601VucauSt. Francis HospitalComment on above:Performed By: #### PLT #### [address] [address] Paper Sales Manager: Vincent Sy MDCO2 [Moles/Vol]22 mmol/EPerkhb18-71BemmxSt. Francis HospitalComment on above:Performed By: #### PLT #### [address] [address] Paper Sales Manager: MELLY Pereyrareatinine [Mass/Vol]2.28 mg/dLHigh0.70-1.20 [facility] HospitalComment on above:Performed By: #### PLT #### [address] [address] Paper Sales Manager: Vincent Sy MDGFR/1.73 sq M.predicted among non-blacks MDRD (S/P/Bld) [Vol rate/Area]37 mL/min/{1.73_m2}Low>60MerKaiser Foundation HospitalComment on above:Result Comment: These results are [...] renal tubular secretion.Performed By: #### PLT #### [address] [address] Paper Sales Manager: Vincent Sy MDGlucose [Mass/Vol]150 mg/oZMrth05-38EwlynSanta Ana Hospital Medical CenterComment on above:Performed By: #### PLT #### [address] [address] Paper Sales Manager: Vincent Sy MDPotassium [Moles/Vol]4.8 mmol/LNormal3.7-5.3 [facility] HospitalComment on above:Performed By: #### PLT #### [address] [address] Paper Sales Manager: LISA Pereyraodium [Moles/Vol]132 mmol/VXoj706-295DmhwlSt. Francis HospitalComment on above:Performed By: #### PLT #### [address] [address] Paper Sales Manager: Vincent Sy MDUrea nitrogen [Mass/Vol]23 mg/dLBraxton County Memorial Hospital6-20St. Francis HospitalComment on above:Performed By: #### PLT #### [address] [address] Paper Sales Manager: Chinmay Pereyra 58-20-1181Wkukyfmoboe distribution width (RBC) [Ratio]13.2 %Qnzagf76.8-14.4St. Francis HospitalComment on above:Performed By: #### PLT #### [facility] [employer] [address] [place] [address] Paper Sales Manager: Vincent Sy MDHematocrit (Bld) [Volume fraction]32.3 %Low 40.7-50.3MSanta Ana Hospital Medical CenterComment on above:Performed By: #### PLT #### [address] [address] Paper Sales Manager: Vincent Sy MDHemoglobin (Bld) [Mass/Vol]10.3 g/dLLow13.0-17.0 [facility] Francis HospitalComment on above:Performed By: #### PLT #### [address] [address] Paper Sales Manager: JODEE PereyraCH (RBC) [Entitic mass]29.5 hjJixdib56.2-33.5 [facility] Francis HospitalComment on above:Performed By: #### PLT #### [address] [address] Paper Sales Manager: JODEE PereyraCHC (RBC) [Mass/Vol]31.9 g/jGXzhnsw74.4-34.8 [facility] Francis HospitalComment on above:Performed By: #### PLT #### [place] [address] Paper Sales Manager: JODEE PereyraCV (RBC) [Entitic vol]92.6 bTNbriea25.6-102.9 [facility] HospitalComment on above:Performed By: #### PLT #### [address] [address] Paper Sales Manager: Vincent Sy MDNRBC Automated0.0 per [address] Francis HospitalComment on above:Performed By: #### PLT #### [address] [address] Paper Sales Manager: DOLLY Pereyralatelet mean volume (Bld) [Entitic vol]10.7 fL Normal8.1-13.5St. Francis HospitalComment on above:Performed By: #### PLT #### [address] [address] Paper Sales Manager: DOLLY Pereyralatelets (Bld) [#/Vol]179 10*3/hZXkcmlo135-064 St. Francis HospitalComment on above:Performed By: #### PLT #### [facility]Care[facility] [place] [address] Paper Sales Manager: MARSHA PereyraBC (Bld) [#/Vol]3.49 10*6/uLLow4.21-5.77[facility]af Medical CenterComment on above:Performed By: #### PLT #### [facility] HospitalCareLin[facility] [place] [address] Paper Sales Manager: Vincent Sy MDWBC (Bld) [#/Vol]11.8 10*3/uLHigh3.5-11.3MSanta Ana Hospital Medical CenterComment on above:Performed By: #### PLT #### [facility] [employer] [address] [place] [address] [phone] Paper Sales Manager: Vincent Sy MDHematocrit (Bld) [Volume fraction]32.3 %Low40.7 - 50.3 %[facility] HOSPITALHemoglobin (Bld) [Mass/Vol]10.3 g/dLLow13.0 - 17.0 g/dLBON [facility] HOSPITALInterpretation and review of laboratory results AbnormalWELLMONT HEALTH SYSTEMH (RBC) [Entitic mass]29.5 pg25.2 - 33.5 pgWELLMONT HEALTH SYSTEMHC (RBC) [Mass/Vol]31.9 g/dL28.4 - 34.8 g/dLBON [facility] HOSPITALV (RBC) [Entitic vol]92.6 fL82.6 - 102.9 fLCARILION ROANOKE COMMUNITY HOSPITALNRBC Automated0.00.0 per 100 WBCCARILION ROANOKE COMMUNITY HOSPITALPlatelet distribution width (Bld) [Ratio]13.2 %11.8 - 14.4 %[facility] Platelet mean volume (Bld) [Entitic vol]10.7 fL8.1 - 13.5 fLCARILION ROANOKE COMMUNITY HOSPITALPlatelets (Bld) [#/Vol]179 10*3/uLBON [facility] METHOD[facility] HOSPITALRBC (Bld) [#/Vol]3.49 10*6/uLLow4.21 - 5.77 m/LewisGale Hospital MontgomeryWBC (Bld) [#/Vol] 11.8 10*3/uLHighBON [facility] HOSPITALCalcium, Ionicon 07-61-5113Qrtjzxz [Moles/Vol]1.25 mmol/LNormal1.13-1.33St. Francis HospitalComment on above:Performed By: #### PLT #### [facility] [address] [place], [place] [phone] Paper Sales Manager: Vincent Sy MDCalcium, Ionizedon 10-22-9004Mozcany.ionized (Bld) [Moles/Vol]1.25 mmol/L1.13 - 1.33 mmol/LBON [facility] HOSPITALMagnesiumon 63-24-6470Kbamxlsfn [Mass/Vol]2.3 mg/dLNormal 1.6-2.6MercMercy San Juan Medical CenterComment on above:Performed By: #### PLT #### [employer] [address] [place] [address] Paper Sales Manager: Vincent Sy MDMagnesium [Mass/Vol]2.3 mg/dL1.6 - 2.6 mg/dLBON [facility]ITALNo Panel Informationon 62-59-3313SPI [facility] OPERATIVE REPORTon 30-24-0240MTBIMBSIX REPORT[address] [id number] OPERATIVE REPORT PATIENT NAME: ELIAS WALKER : 1985 MED REC NO: [id number] ROOM: 2022 ACCOUNT NO: [id number] ADMIT DATE: 05/23/2022 PROVIDER: Ariel Purdy MD [...] with an excel (more content not included)...NormalMercy [facility] Glucose Fingerstickon 51-26-2408Rjvgply [Mass/Vol]226 mg/jBBjda49 - 110 mg/dLBON [facility] - GILBERTCurexo Technology Interpretation and review of laboratory resultsAbnormalSMYTH COUNTY COMM[facility]ITY [facility] Schedulicity [facility] LabourNetGlucose [Mass/Vol]213 mg/fMCgxv65 - 110 mg/dLBON [facility] - GILBERTCurexo TechnologyInterpretation and review of laboratory resultsAbnormalBON [facility]OSPITALGlucose [Mass/Vol]218 mg/mKFmur48 - 110 mg/dLBON [facility] MERCY HEALTHInterpretation and review of laboratory results AbnormalBON iGlueBON SECIxtens HEALTHXR CHEST PORTABLEon 60-69-7554ZBFO RIS [facility] CENTERGood Travel Software [facility] Schedulicity Work Phone: radiology Study observation (narrative)[employer]VION [employer] Work Phone: XR CHEST PORTABLEEXAMINATION: ONE XRAY [...] Signed by: Akira Augustin MD 06/05/22 Final resultNormalBaptist Health Wolfson Children's HospitalCurexo Technology Work Phone: radiology Study observation (narrative)[facility] [employer] Work Phone: xr CHEST PORTABLEOrdered By: David Gabriel on 06-05-2022 [facility] [employer] Work Phone: XR CHEST PORTABLEOrdered By: Akira Augustin on 96-89-2396JXD [employer] Work Phone: Basic Metabolic Panelon 86-14-3070Krxet gap [Moles/Vol]11 mmol/L9 - 17 mmol/LBON [facility]OURS MERCY HEALTHCalcium [Mass/Vol]9.0 mg/dL8.6 - 10.4 mg/dLBON [facility] MERCY HEALTHChloride [Moles/Vol]102 mmol/L98 - 107 mmol/LBON SECOURS Global ActiveY HEALTHCO2 [Moles/Vol]21 mmol/L20 - 31 mmol/LBON [facility] MERCY HEALTHCreatinine [Mass/Vol]2.35 mg/dLHigh0.70 - 1.20 mg/dLBON [facility] HOSPITALGFR/1.73 sq M.predicted MDRD (S/P/Bld) [Vol rate/Area]36 mL/min/{1.73_m2}Low- PINFBON [facility]ERSIDE METHOD[facility] HOSPITALGlucose [Mass/Vol]192 mg/dLHigh 70 - 99 mg/dLBON [facility]OSPITALInterpretation and review of laboratory resultsAbnormalBON [facility] HOSPITALPotassium [Moles/Vol]4.9 mmol/L3.7 - 5.3 mmol/LBON [facility] METHOD[facility] HOSPITALSodium [Moles/Vol]134 mmol/AJfj934 - 144 mmol/LBON [facility] METHOD[facility] HOSPITALUrea nitrogen [Mass/Vol]24 mg/dLHigh6 - 20 mg/dLBON [facility] HOSPITALBasic Metabolic Profon 32-34-0230Spdpb gap [Moles/Vol]11 mmol/L Normal9-17St. Francis HospitalComment on above:Performed By: #### PT GLYHGB, CDP #### [employer] [address] [place] [address] Paper Sales Manager: MELLY Pereyraalcium [Mass/Vol]9.0 mg/dLNormal8.6-10.4St. Francis HospitalComment on above:Performed By: #### PT GLYHGB, CDP #### [employer] [facility] [place] [phone] Paper Sales Manager: MELLY Pereyrahloride [Moles/Vol]102 mmol/EAqsvro53-137BgyavSt. Francis HospitalComment on above:Performed By: #### PT, GLYHGB, CDP #### [employer] [address] [place] [address] Paper Sales Manager: Vincent Sy MDCO2 [Moles/Vol]21 mmol/OMsayvv41-32AxjvgSt. Francis HospitalComment on above:Performed By: #### PT, GLYHGB, CDP #### [employer] [address] [place] [address] Paper Sales Manager: MELLY Pereyrareatinine [Mass/Vol]2.35 mg/dLHigh0.70-1.20 [facility] HospitalComment on above:Performed By: #### BRITTANEY BROWN, CDP #### [address] [address] Paper Sales Manager: Vincent Sy MDGFR/1.73 sq M.predicted among non-blacks MDRD (S/P/Bld) [Vol rate/Area]36 mL/min/{1.73_m2}Low>60St. Francis HospitalComment on above:Result Comment: These results are [...] secretion.Performed By: #### BRITTANEY BROWN, CDP #### [facility] [employer] [address] [place] [address] Paper Sales Manager: Vincent Sy MDGlucose [Mass/Vol]192 mg/lDUqoh44-64Umbgh [facility] Grant Usaf Medical CenterComment on above:Performed By: #### BRITTNAEY BROWN, CDP #### [facility] [employer] [address] [place] [address] Paper Sales Manager: Vincent Sy MDPotassium [Moles/Vol]4.9 mmol/LNormal3.7-5.3 [facility] HospitalComment on above:Performed By: #### RICHIE BROWNHGB, CDP #### [facility] [employer] [address] [place] [address] Paper Sales Manager: Vincent Sy MDSodium [Moles/Vol]134 mmol/FUug817-619FkommSt. Francis HospitalComment on above:Performed By: #### PT, GLYHGB, CDP #### [facility] [address] [place] [address] Paper Sales Manager: Vincent Sy MDUrea nitrogen [Mass/Vol]24 mg/dLHigh6-20St. Francis HospitalComment on above:Performed By: #### PT, GLYHGB, CDP #### [facility] [address] [place] [address] Paper Sales Manager: MELLY Pereyraastrid 42-03-1996Vpwpexvetkr distribution width (RBC) [Ratio]13.2 %Ihkudz71.8-14.4St. Francis HospitalComment on above:Performed By: #### PT, GLYHGB, CDP #### [facility] [employer] [address] [place] [address] Paper Sales Manager: Vincent Sy MDHematocrit (Bld) [Volume fraction]36.6 %Low 40.7-50.3Mlakehealth beachwood medical centery David Grant Usaf Medical CenterComment on above:Performed By: #### PT, GLYHGB, CDP #### [facility] [employer] [address] [place] [address] Paper Sales Manager: Vincent Sy MDHemoglobin (Bld) [Mass/Vol]11.9 g/dLLow13.0-17.0 [facility] HospitalComment on above:Performed By: #### PT, GLYHGB, CDP #### [facility] [employer] [address] [place] [address] Paper Sales Manager: JODEE PereyraCH (RBC) [Entitic mass]29.[address]Hhhxyp34.2-33.5 [facility] HospitalComment on above:Performed By: #### PT, GLYHGB, CDP #### [facility] [employer] [address] [place] [address] Paper Sales Manager: JODEE PereyraCHC (RBC) [Mass/Vol]32.5 g/iTAcofru84.4-34.8 [facility] HospitalComment on above:Performed By: #### PT, GLYHGB, CDP #### [facility] [address] [place] [address] Paper Sales Manager: TOOTIE Pereyra (RBC) [Entitic vol]91.[address]dzsfx71.6-102.9 [facility] [facility] HospitalComment on above:Performed By: #### PT, GLYHGB, CDP #### [facility] [address] [place] [address] Paper Sales Manager: BRAYDON Pereyra Automated0.0 per [address] [facility] HospitalComment on above:Performed By: #### PT, GLYHGB, CDP #### [facility] [employer] [address] [place] [address] Paper Sales Manager: Jeffrey Pereyra mean volume (Bld) [Entitic vol]10.4 fL Normal8.1-13.5St. Francis HospitalComment on above:Performed By: #### PT, GLYHGB, CDP #### [facility] [address] [place] [address] Paper Sales Manager: oSl Pereyrateerasmo (Bld) [#/Vol]196 10*3/qMWjilnl763-790 [facility] HospitalComment on above:Performed By: #### PT, GLYHGB, CDP #### [facility] [employer] [address] [place] [address] Paper Sales Manager: MARSHA PereyraBC (Bld) [#/Vol]3.99 10*6/uLLow4.21-5.77St. [facility] HospitalComment on above:Performed By: #### PT, GLYHGB, CDP #### [facility] [employer] [address] [place] [address] Paper Sales Manager: Vincent Madoff, MDWBC (Bld) [#/Vol]15.0 10*3/uLHigh3.5-11.3[facility] Usaf Medical CenterComment on above:Performed By: #### PT, GLYHGB, CDP #### [employer] [address] [place] [address] Paper Sales Manager: Vincent Sy MDHematocrit (Bld) [Volume fraction]36.6 %Low40.7 - 50.3 %[facility] HOSPITALHemoglobin (Bld) [Mass/Vol]11.9 g/dLLow13.0 - 17.0 g/dLBON [facility] HOSPITALInterpretation and review of laboratory results AbnormalBON [facility] HOSPITALH (RBC) [Entitic mass]29.8 pg25.2 - 33.5 pgBON [facility] HOSPITALHC (RBC) [Mass/Vol]32.5 g/dL28.4 - 34.8 g/dLBON [facility] HOSPITALV (RBC) [Entitic vol]91.7 fL82.6 - 102.9 fLCARILION ROANOKE COMMUNITY HOSPITALNRBC Automated0.00.0 per 100 WBCBON [facility] HOSPITALPlatelet distribution width (Bld) [Ratio]13.2 %11.8 - 14.4 %[facility] Platelet mean volume (Bld) [Entitic vol]10.4 fL8.1 - 13.5 fLSMYTH COUNTY COMMUNITY HOSPITAL HEALTHPlatelets (Bld) [#/Vol]196 10*3/uLBON [facility]ERS[facility] METHODIST HOSPITALRBC (Bld) [#/Vol]3.99 10*6/uLLow4.21 - 5.77 m/uLBON [facility] METHOD[facility] HOSPITALWBC (Bld) [#/Vol] 15.0 10*3/uLHighBON [facility] CITY HOSPITALCalcium, Ionicon 24-11-8151Aumkxmt [Moles/Vol]1.24 mmol/LNormal1.13-1.33MerKaiser Foundation HospitalComment on above:Performed By: #### BMP, MG, CBC, PT, PTT #### [employer] [address] [place], [place] [phone] Paper Sales Manager: MELLY Pereyraalcium [Moles/Vol]1.28 mmol/LNormal1.13-1.33 [facility] HospitalComment on above:Performed By: #### BRITTANEY BROWN, CDP #### [facility] [place], [place] [phone] Paper Sales Manager: MELLY Pereyraalcium, Ionizedon 78-67-4321Egdioxa.ionized (Bld) [Moles/Vol]1.24 mmol/L1.13 - 1.33 mmol/LBON REG[facility] RAPID CITY HOSPITALCalcium.ionized (Bld) [Moles/Vol]1.28 mmol/L1.13 - 1.33 mmol/LBON [facility]ALTH RAPID CITY HOSPITALMagnesiumon 06-04-2022 Magnesium [Mass/Vol]2.2 mg/dLNormal1.6-2.6MSanta [facility] Hospital Medical [facility] Comment on above:Performed By: #### BRITTANEY BROWN, CDP #### [facility] [address] [place] [address] Paper Sales Manager: Vincent Sy MDMagnesium [Mass/Vol]2.2 mg/dL1.6 - 2.6 mg/dLBON [facility]ITALNo Panel Informationon 61-26-0183KTY [facility] HOSPITALPO Glucose Fingerstickon 48-37-8584Cmedqum [Mass/Vol]182 mg/bOXjkf66 - 110 mg/dL [facility]OSPITALInterpretation and review of laboratory resultsAbnormal BON [facility] HOSPITALGlucose [Mass/Vol]208 mg/dLHigh 75 - 110 mg/dLBON [facility] HOSPITALInterpretation and review of laboratory resultsAbnormalCHILDREN'S HOS[facility] AT VCUGlucose [Mass/Vol]191 mg/sAAoze01 - 110 mg/dLBON [facility] HOSPITALInterpretation and review of laboratory resultsAbnormalBON SECOURS MERCY HEALTHBON [facility] MERCY HEALTHGlucose [Mass/Vol]156 mg/rOMnbn47 - 110 mg/dLBON [facility] Interpretation and review of laboratory resultsAbnormCJW Medical CenterPTon 01-19-5296UPJ Coag (PPP) [Relative time]1.2 {INR} [facility]itus Medical CenterComment on above:Result Comment: Therapeutic Range: Moderate Anticoagulant Intensity: INR = 2.0-3.0 High Anticoagulant Intensity: INR = 2.5-3.5Performed By: #### PT, GLYHGB, CDP #### [employer] [address] [place] [address] [phone] Paper Sales Manager: LALO Pereyra Coag (PPP) [Time]15.3 sHigh11.7-14.9St. Francis HospitalComment on above:Performed By: #### PT, GLYHGB, CDP #### [employer] [address] [place] [address] [phone] Paper Sales Manager: Deng Pereyraime-INRon 09-31-3129ZEA Coag (PPP) [Relative time]1.2 {INR}[facility] HOSPITALInterpretation and review of laboratory resultsAbAugusta HealthPT Coag (PPP) [Time]15.3 sHighBON [facility]ALTH RAP[facility] CITY HOSPITALVancomycin Level, Randomon 06-04-2022 Vancomycin Rm17.1 ug/mLCH[facility] Vancomycin,Randomon 67-23-5147Jmrfzasrje43.1 ug/mLNormalSt. Francis HospitalComment on above:Result Comment: Higher trough serum vancomycin concentrations of 15-20 ug/mL are recommended for complicated infections such as bacteremia, endocarditis, osteomyelitis, meningitis, and hospital acquired pneumonia.Performed By: #### BMP, MG, CBC, PT, PTT #### [employer] [address] [place] [address] [phone] Paper Sales Manager: SUSIE Pereyra CHEST PORTABLEon 02-54-7595SM CHEST PORTABLE EXAMINATION: ONE XRAY VIEW OF [...] Signed by: Eliana Crisostomo MD 06/04/22 Final resultNormalMarietta Memorial HospitalPN RIS CONSOLIDATEDPN RIS [facility] Work Phone: [facility] Work Phone: radiology Study observation (narrative)[facility] Work Phone: arterial Blood Gas, POCon 98-97-5225Etnti TestNOT APPLICABLECARILION ROANOKE COMMUNITY HOSPITALFIO240.0[facility] COMMUNITY HOSPITALHCO3 (Bld) [Moles/Vol]22.9 mmol/L21.0 - 28.0 mmol/LBON [facility] HEALTHInterpretation and review of laboratory resultsAbnormalCARILION ROANOKE COMMUNITY HOSPITALNegative Base Excess, Kdz4Pbww9.0 - 2.0[facility]OSPITALO2 Device/Flow/%Adult VentilatorCARILION ROANOKE COMMUNITY HOSPITALOxygen saturation in Blood97 %94.0 - 98.0 %[facility] qLC581.2HighCOMMUNITY HEALTH SYSTEMS pH7.513Klk0.350 - 7.450[facility] [id number] Hospitalmple Site Arterial LineCHILDREN'S [facility] AT VCUAllen TestNOT APPLICABLEBON [facility] HOSPITALFIO240.0[facility] HOSPITALHCO3 (Bld) [Moles/Vol]21.8 mmol/L21.0 - 28.0 mmol/LBON [facility]CY HEALTHNegative Base Excess, Gaq0Qgau5.0 - 2.0BON [facility] HOSPITALOxygen saturation in Blood98 % 94.0 - 98.0 %BON [facility] mOD376.1BON [facility]ITALC pH 7.804Tzn5.350 - 7.450BON [facility] KB1797.5HighBON [facility] HOSPITALPt Temp36.8BON [facility] HOSPITALSample SiteArterial LineBON [facility] HOSPITALBasic Metab w/rfx MGon 67-60-3237Qmalz gap [Moles/Vol]6 mmol/LLow 9-17St. Francis HospitalComment on above:Performed By: #### BMP, MG, CBC, PT, PTT #### [facility] [address] [place] [address] Paper Sales Manager: MELLY Pereyraalcium [Mass/Vol]8.8 mg/dLNormal8.6-10.4St. Francis HospitalComment on above:Performed By: #### BMP, MG, CBC, PT, PTT #### [facility] [address] [place] [address] Paper Sales Manager: MELLY Pereyrahloride [Moles/Vol]102 mmol/FNpjant71-359IhnmhSt. Francis HospitalComment on above:Performed By: #### BMP, MG, CBC, PT, PTT #### [facility] [address] [place] [address] Paper Sales Manager: Vincent Sy MDCO2 [Moles/Vol]22 mmol/KOmitgr41-22OthdsSt. Francis HospitalComment on above:Performed By: #### BMP, MG, CBC, PT, PTT #### [facility] [employer] [address] [place] [address] Paper Sales Manager: Vincent Sy MDCreatinine [Mass/Vol]2.68 mg/dLHigh0.70-1.20 [facility] HospitalComment on above:Performed By: #### BMP, MG, CBC, PT, PTT #### [facility] [address] [place] [address] Paper Sales Manager: Vincent Sy MDGFR/1.73 sq M.predicted among non-blacks MDRD (S/P/Bld) [Vol rate/Area]30 mL/min/{1.73_m2}Low>60St. Francis HospitalComment on above:Result Comment: These results are [...] #### BMP, MG, CBC, PT, PTT #### [employer] [address] [place] [address] Paper Sales Manager: Vincent Sy MDGlucose [Mass/Vol]133 mg/bDNdqm10-42AgwxhSanta Ana Hospital Medical CenterComment on above:Performed By: #### BMP, MG, CBC, PT, PTT #### [facility] [address] [place] [address] Paper Sales Manager: Vincent Sy MDPotassium [Moles/Vol]5.1 mmol/LNormal3.7-5.3 [facility] HospitalComment on above:Performed By: #### BMP, MG, CBC, PT, PTT #### [employer] [address] [place] [address] Paper Sales Manager: Vincent Sy MDSodium [Moles/Vol]130 mmol/DCli370-840FryitSt. Francis HospitalComment on above:Performed By: #### BMP, MG, CBC, PT, PTT #### [facility] [address] [place] [address] Paper Sales Manager: Vincent Sy MDUrea nitrogen [Mass/Vol]26 mg/dLHigh6-20[facility] Usaf Medical CenterComment on above:Performed By: #### BMP, MG, CBC, PT, PTT #### [facility] [address] [place] [address] Paper Sales Manager: Vincent Sy MDYale [facility] Psych[facility] Metabolic Panelon 04-07-7022Paqpa gap [Moles/Vol]8 mmol/LLow9 - 17 mmol/LBON SECOURS [...] HEALTHBac Metabolic Panel w/ Reflex to MGon 44-47-0853Qcxpm gap [Moles/Vol]6 mmol/LLow9 - 17 mmol/LBON [facility] HEALTHCalcium [Mass/Vol]8.8 mg/dL8.6 - 10.4 mg/dLBON [facility] HEALTHChloride [Moles/Vol]102 mmol/L98 - 107 mmol/LBON [facility] HEALTHCO2 [Moles/Vol]22 mmol/L20 - 31 mmol/LBON [facility] HEALTHCreatinine [Mass/Vol]2.68 mg/dLHigh0.70 - 1.20 mg/dLBON [facility] HOSPITALGFR/1.73 sq M.predicted MDRD (S/P/Bld) [Vol rate/Area]30 mL/min/{1.73_m2}Low- PINFBON [facility]ERSIDE METHOD[facility] HOSPITALGlucose [Mass/Vol]133 mg/dLHigh 70 - 99 mg/dLBON [facility]OSPITALInterpretation and review of laboratory resultsAbnormalBON [facility] HOSPITALPotassium [Moles/Vol]5.1 mmol/L3.7 - 5.3 mmol/LBON [facility] HOSPITALSodium [Moles/Vol]130 mmol/TEdf559 - 144 mmol/LBON [facility] METHOD[facility] HOSPITALUrea nitrogen [Mass/Vol]26 mg/dLHigh6 - 20 mg/dLBON [facility]ITALBasic Metabolic Profon 11-22-5533Mizdj gap [Moles/Vol]8 mmol/LLow 9-17St. Francis HospitalComment on above:Performed By: #### PT GLYHGB, CDP #### [employer] [address] [place] [address] Paper Sales Manager: MELLY Pereyraalcium [Mass/Vol]8.8 mg/dLNormal8.6-10.4St. Francis HospitalComment on above:Performed By: #### PT GLYHGB, CDP #### [employer] [address] [place] [address] Paper Sales Manager: MELLY Pereyrahloride [Moles/Vol]111 mmol/CCqqy04-885NsmnfSt. Francis HospitalComment on above:Performed By: #### PT, GLYHGB, CDP #### [employer] [address] [place] [address] Paper Sales Manager: Vincent Sy MDCO2 [Moles/Vol]20 mmol/QDkswox40-62CzjvgSt. Francis HospitalComment on above:Performed By: #### PT GLYHGB, CDP #### [employer] [address] [place] [address] Paper Sales Manager: MELLY Pereyrareatinine [Mass/Vol]2.15 mg/dLHigh0.70-1.20 [facility] HospitalComment on above:Performed By: #### BRITTANEY BROWN, CDP #### [address] [address] Paper Sales Manager: Vincent Sy MDGFR/1.73 sq M.predicted among non-blacks MDRD (S/P/Bld) [Vol rate/Area]40 mL/min/{1.73_m2}Low>60St. Francis HospitalComment on above:Result Comment: These results are [...] secretion.Performed By: #### BRITTANEY BROWN, CDP #### [facility] [employer] [address] [place] [address] Paper Sales Manager: Vincent Sy MDGlucose [Mass/Vol]113 mg/nSQkso65-91Ilymm David Grant Usaf Medical CenterComment on above:Performed By: #### BRITTANEY BROWN, CDP #### [facility] [employer] [address] [place] [address] Paper Sales Manager: Vincent Sy MDPotassium [Moles/Vol]5.3 mmol/LNormal3.7-5.3 [facility] HospitalComment on above:Performed By: #### BRITTANEY BROWN, CDP #### [facility] [employer] [address] [place] [address] Paper Sales Manager: Vincent Sy MDSodium [Moles/Vol]139 mmol/ARjbcys023-559WgnneSt. Francis HospitalComment on above:Performed By: #### PT, GLYHGB, CDP #### [facility] [address] [place] [address] Paper Sales Manager: Vincent Sy MDUrea nitrogen [Mass/Vol]23 mg/dLHigh6-20St. Francis HospitalComment on above:Performed By: #### PT, GLYHGB, CDP #### [facility] [address] [place] [address] Paper Sales Manager: MELLY Pereyraon 18-92-7581Quhwvivvkjt distribution width (RBC) [Ratio]13.4 %Sinmlk15.8-14.4St. Francis HospitalComment on above:Performed By: #### PT, GLYHGB, CDP #### [facility] [employer] [address] [place] [address] Paper Sales Manager: Vincent Sy MDHematocrit (Bld) [Volume fraction]36.3 %Low 40.7-50.3Mlakehealth beachwood medical centery David Grant Usaf Medical CenterComment on above:Performed By: #### PT, GLYHGB, CDP #### [facility] [employer] [address] [place] [address] Paper Sales Manager: Vincent Sy MDHemoglobin (Bld) [Mass/Vol]11.8 g/dLLow13.0-17.0 [facility] HospitalComment on above:Performed By: #### PT, GLYHGB, CDP #### [facility] [address] [place] [address] Paper Sales Manager: JODEE PereyraCH (RBC) [Entitic mass]29.4 inJvabyk59.2-33.5 [facility] HospitalComment on above:Performed By: #### PT, GLYHGB, CDP #### [facility] [address] [place] [address] Paper Sales Manager: JODEE PereyraCHC (RBC) [Mass/Vol]32.5 g/hJNmehbn98.4-34.8 [facility] HospitalComment on above:Performed By: #### PT, GLYHGB, CDP #### [facility] [address] [place] [address] Paper Sales Manager: JODEE PereyraCV (RBC) [Entitic vol]90.[address]YRornzl14.6-102.9 [facility] [facility] HospitalComment on above:Performed By: #### PT, GLYHGB, CDP #### [facility] [employer] [address] [place] [address] Paper Sales Manager: BRAYDON Pereyra Automated0.0 per [address] Francis HospitalComment on above:Performed By: #### PT, GLYHGB, CDP #### [facility] [employer] [address] [place] [address] Paper Sales Manager: Sol Pereyratecarlton mean volume (Bld) [Entitic vol]10.8 fL Normal8.1-13.5St. Francis HospitalComment on above:Performed By: #### PT, GLYHGB, CDP #### [facility] [address] [place] [address] Paper Sales Manager: Sol Pereyrateerasmo (Bld) [#/Vol]190 10*3/pLKdspgg687-982 [facility] HospitalComment on above:Performed By: #### PT, GLYHGB, CDP #### [facility] [employer] [address] [place] [address] Paper Sales Manager: MARSHA PereyraBC (Bld) [#/Vol]4.01 10*6/uLLow4.21-5.77St. Francis HospitalComment on above:Performed By: #### PT, GLYHGB, CDP #### [facility] [employer] [address] [place] [address] Paper Sales Manager: Vincent Sy MDWBC (Bld) [#/Vol]17.1 10*3/uLHigh3.5-11.3[facility] Usaf Medical CenterComment on above:Performed By: #### BRITTANEY BROWN CDP #### [employer] [address] [place] [address] Paper Sales Manager: Vincent Sy MDHematocrit (Bld) [Volume fraction]36.3 %Low40.7 - 50.3 %[facility] COMM[facility] HOSPITALHemoglobin (Bld) [Mass/Vol]11.8 g/dLLow13.0 - 17.0 g/dLBON [facility] HOSPITALInterpretation and review of laboratory results AbnormalBON [facility]LBY HOSPITALH (RBC) [Entitic mass]29.4 pg25.2 - 33.5 pgBON [facility] SHELBY HOSPITALHC (RBC) [Mass/Vol]32.5 g/dL28.4 - 34.8 g/dLBON [facility] SHELBY HOSPITALV (RBC) [Entitic vol]90.5 fL82.6 - 102.9 fLCARILION ROANOKE COMMUNITY HOSPITALNRBC Automated0.00.0 per 100 WBCBON [facility] HOSPITALPlatelet distribution width (Bld) [Ratio]13.4 %11.8 - 14.4 %[facility] Platelet mean volume (Bld) [Entitic vol]10.8 fL8.1 - 13.5 fLSMYTH COUNTY COMMUNITY HOSPITAL HEALTHPlatelets (Bld) [#/Vol]190 10*3/uLBON [facility]ERS[facility] METHODIST HOSPITALRBC (Bld) [#/Vol]4.01 10*6/uLLow4.21 - 5.77 m/uLBON [facility] METHOD[facility] HOSPITALWBC (Bld) [#/Vol] 17.1 10*3/uLHighBON [facility] CITY HOSPITALCalcium, Ionicon 72-41-9430Refinzf [Moles/Vol]1.33 mmol/LNormal1.13-1.33St. [facility] HospitalComment on above:Performed By: #### BRITTANEY BROWN, [place] #### [employer] [address] [phone] Paper Sales Manager: Vincent Sy MDCalcium, Ionizedon 29-69-4630Ribkxjn.ionized (Bld) [Moles/Vol]1.33 mmol/L1.13 - 1.33 mmol/LBON [facility] R[facility] CITY HOSPITALLaboratory - Blood bankon 12-23-4958Kcczu product type Nom (BPU)Leukocyte Reduced Red CellBON [facility]IVERSIDE METHODIST HOSPITALLactic Acid, POCon 78-83-5070SEU Lactic Acid0.75 mmol/L0.56 - 1.39 mmol/LBON [facility] Magnesiumon 86-58-6147Ayuulvfel [Mass/Vol]2.4 mg/dLNormal1.6-2.6[facility] Usaf Medical CenterComment on above:Performed By: #### PT, GLYHGB, CDP #### [facility] [address] [place], [place] [id number] Paper Sales Manager: Vincent Sy MDMagnesium [Mass/Vol]2.4 mg/dL1.6 - 2.6 mg/dLBON [facility]ITALNo Panel Informationon 68-33-9321GUL [facility] Crossmatch ResultCOMPATIBLECARILION ROANOKE COMMUNITY HOSPITALDispense StatusREL FROM ALLOC [facility] HOSPITALTransfusion StatusOK TO TRANSFUSEBON [facility] HOSPITALUnit Eckmxml9PIV [facility] Interpretation and review of laboratory resultsAbnormalCARILION RO[facility]OKE COMM[facility]ITY [facility]OSPITAL BON [facility]IVERSIDE METHOD[facility] HOSPITALPOC Glucose Fingerstickon 20-77-3422Nodjxol [Mass/Vol] 162 mg/aRPzvv16 - 110 mg/dLBON [facility] HOSPITALInterpretation and review of laboratory resultsAbnormalCHILDR[facility] Glucose [Mass/Vol]153 mg/mWVwok00 - 110 mg/dLBON [facility] Interpretation and review of laboratory resultsAbnormCJW Medical CenterGlucose [Mass/Vol]207 mg/hWJhyi99 - 110 mg/dLBON [facility] HOSPITALInterpretation and review of laboratory resultsAbnormalCHILDREN'S HOS[facility] AT VCUGlucose [Mass/Vol]197 mg/tIYzdz78 - 110 mg/dLBON [facility] HOSPITALInterpretation and review of laboratory results AbnormalBON [facility] HEALTHGlucose [Mass/Vol]92 mg/dL75 - 110 mg/dLBON [facility] HEALTHGlucose [Mass/Vol]104 mg/dL75 - 110 mg/dLBON [facility] HEALTHGlucose [Mass/Vol]103 mg/dL75 - 110 mg/dLBON [facility] HEALTHGlucose [Mass/Vol]116 mg/gHSpod80 - 110 mg/dLBON [facility] HEALTHInterpretation and review of laboratory resultsAbnormalCHILDREN'S [facility] AT VCUGlucose [Mass/Vol]126 mg/vYMqlc53 - 110 mg/dLBON [facility] HEALTHInterpretation and review of laboratory results AbnormalBON [facility] HOSPITALPOCT Glucoseon 19-84-2898Bdbnvro [Mass/Vol]135 mg/kQXxvn35 - 100 mg/dLBON [facility] PTon 95-96-1708FHM Coag (PPP) [Relative time]1.1 {INR}NormalSt. Francis HospitalComment on above:Result Comment: Therapeutic Range: Moderate Anticoagulant Intensity: INR = 2.0-3.0 High Anticoagulant Intensity: INR = 2.5-3.5Performed By: #### PT, GLYHGB, CDP #### [employer] [address] [place] [address] Paper Sales Manager: LALO Pereyra Coag (PPP) [Time]14.6 sCzvycs93.7-14.9St. Francis HospitalComment on above:Performed By: #### PT, GLYHGB, CDP #### [employer] [address] [place], [place] [phone] Paper Sales Manager: Kevin Pereyra-INRon 36-16-8575LMC Coag (PPP) [Relative time]1.1 {INR}DAVION REAGAN HEALTHPT Coag (PPP) [Time]14.6 sBON SECMARIA ELENA REAGAN HEALTHTYPE AND SCREENon 00-17-9279PFF/RhPositive BON ALCIRA REAGAN HEALTHArm Band NumberBE [id number] SECMARIA ELENA WAYNEY HEALTHBlood product unit ID (Dose) [#][id number] SECMARIA ELENA MERCJed HEALTHBlood product unit ID (Dose) [#][id number] SECMARIA ELENA MERCY HEALTHBlood product unit ID (Dose) [#][id number] SECMARIA ELENA MERCY HEALTHBlood product unit ID (Dose) [#] [id number] ALCIRA REAGAN HEALTHExpiration Date06/02/2022,2359BON SECMARIA ELENA REAGAN HEALTHVancomycin Level, Randomon 06-03-2022 Vancomycin Rm31.9 ug/mLBON SECMARIA ELENA REAGAN HEALTHVancomycin,Randomon 06-03-2022 Kiozrlowkg99.9 ug/mLNUniversity Hospitals Cleveland Medical CenterComment on above: Result Comment: Higher trough serum vancomycin concentrations of 15-20 ug/mL are recommended for complicated infections such as bacteremia, endocarditis, osteomyelitis, meningitis, and hospital acquired pneumonia.Performed By: #### BMP, MG, CBC, PT, PTT #### [employer] [address] [place] [address] Paper Sales Manager: SUSIE Pereyra CHEST PORTABLEon 02-85-8448SX CHEST PORTABLE EXAMINATION: ONE XRAY VIEW OF [...] Signed by: Eliana Crisostomo MD 06/03/22 Final resultNormalSt. Francis HospitalMHPN RIS CONSOLIDATEDMHPN RIS CONSOLIDATEDBON [employer] Work Phone: radiology Study observation (narrative)[employer] Work Phone: XR CHEST PORTABLEOrdered By: Eliana Crisostomo on 06-03-2022 [facility] [employer] Work Phone: APTTon 80-48-8883pOGH Coag (Bld) [Time]28.1 sNormal 23.0-36.5St. Francis HospitalComment on above:Performed By: #### BMP, MG, CBC, PT, PTT #### [employer] [address] [place] [address] [phone] Paper Sales Manager: Vincent Sy MDaPTT Coag (Bld) [Time]28.1 sB iGlueaPTT Coag (Bld) [Time]66.0 sHigh23.0-36.[address] [place] [address] Comment on above:Result Comment: NOTE: NEW REFERENCE RANGEPerformed By: #### BMP, MG, CBC, PT, PTT #### [employer] [address] [place] [address] [phone] Paper Sales Manager: Vincent Sy MDAniastrid Gap (Calc) POCon 86-03-6244Ajgfh gap [Moles/Vol]11 mmol/L7 - 16 mmol/LBON iGlueArterial Blood Gas, POC on 15-62-8908Xwwke TestNOT APPLICABLEBON SECIxtens IYINNLTQE421.0BON iGlueHCO3 (Bld) [Moles/Vol]19.0 mmol/LLow21.0 - 28.0 mmol/LBON SECIxtens HEALTHNegative Base Excess, Lqs0Fajk1.0 - 2.0BON [employer]ueO2 Device/Flow/%Adult VentilatorBON SECCurexo TechnologyOxygen saturation in Blood 97 %94.0 - 98.0 %[facility] rJS254.1[facility] pH7.696Fwc7.350 - 7.450[facility] ES7767.6HighBON [facility] HEALTHSample SiteArterial LineBON [facility]CY HEALTHAllen TestNOT APPLICABLEBON SECOURS MERCY EJIKUQZKY2806.0BON [facility] HEALTHHCO3 (Bld) [Moles/Vol]20.5 mmol/LLow21.0 - 28.0 mmol/LBON [facility] HEALTHMode SIMV(PRVC)+ PSBON [facility] HEALTHNegative Base Excess, Glt1Vjym2.0 - 2.0B[facility] HEALTHO2 Device/Flow/%Adult VentilatorBON SECOURS [facility]OS[facility]ITALY HEALTH Oxygen saturation in Blood99 %High94.0 - 98.0 %[facility] pCO2 44.6[facility] pH7.754Gnt9.350 - 7.450[facility] POC QG1817.5HighBON [facility] HEALTHSample SiteArterial LineBON [facility] MERCY HEALTHHCO3 (Bld) [Moles/Vol]20.9 mmol/LLow21.0 - 28.0 mmol/LBON [facility] HEALTHNegative Base Excess, Asf9Pkzs1.0 - 2.0[facility]ALTH Oxygen saturation in Dgitb045 %High94.0 - 98.0 %[facility] pCO2 45.9[facility] pH7.698Ngn9.350 - 7.450BON SEC[facility]RS [facility] SAM[facility] HOSPITALY HEALTH POC FZ8935.0HighBON [facility] MERCY HEALTHHCO3 (Bld) [Moles/Vol]20.9 mmol/LLow21.0 - 28.0 mmol/LBON [facility] HEALTHNegative Base Excess, Nkw9Avni2.0 - 2.0B[facility] HEALTHOxygen saturation in Hifxn363 %High94.0 - 98.0 %[facility] sTV696.8[facility] pH7.599Yxi6.350 - 7.450[facility] SX7550.8HighBON [facility] MERCY HEALTHHCO3 (Bld) [Moles/Vol]21.4 mmol/L21.0 - 28.0 mmol/LBON [facility] HEALTHNegative Base Excess, Ekl4Kjhw6.0 - 2.0B[facility] HEALTHOxygen saturation in Tgrro967 % High94.0 - 98.0 %[facility]RS [facility]ITALPOC pGP471.9LowBON [facility] HEALTH POC pH7.3967.350 - 7.450BON [facility] SAM[facility] HOSPITALY [facility]ITALP[facility] PT5327.3HighBON SEC[facility]RS [facility] HOSPITALY HEALTHHCO3 (Bld) [Moles/Vol]20.9 mmol/LLow21.0 - 28.0 mmol/LBON [facility] HEALTHNegative Base Excess, Eoh7Ocxt0.0 - 2.0[facility] HEALTH Oxygen saturation in Iyzds863 %High94.0 - 98.0 %[facility]ENTEROURS [facility]ITALPOC pCO2 35.5BON [facility]ITALPOC pH7.3787.350 - 7.450BON [facility]BERTOU[facility] RESERVE HOSPITALC LW6850.8HAscension [facility] SECOURS [facility] SAM[facility]ITAN HOSPITALY HEALTHHCO3 (Bld) [Moles/Vol]22.3 mmol/L21.0 - 28.0 mmol/LBON [facility] HEALTHNegative Base Excess, Jhj2Lhwp3.0 - 2.0[facility] SECOURS MERCY HEALTHOxygen saturation in Pbjkj501 %High94.0 - 98.0 %[facility]ENTEROURS [facility]OSPITALPOC fVY838.6BON [facility] pH7.115Bfb6.350 - 7.450BON [facility]ERT[facility] RESERVE HOSPITALC JT0491.8HAscension [facility] SECOURS [facility] SAM[facility]IT[facility] HOSPITALY HEALTHHCO3 (Bld) [Moles/Vol]20.4 mmol/LLow21.0 - 28.0 mmol/LBON [facility] HEALTHNegative Base Excess, Lux8Grae5.0 - 2.0BON [facility] HOSPITALY HEALTHOxygen saturation in Xwkbt736 %High94.0 - 98.0 %BON [facility]OSPITALPOC cSH629.6B[facility]ALTH POC pH7.509Gxq3.350 - 7.450BON [facility]ITALPOC CN8667.9HAscension [facility] SECOURS [facility] HOSPITALY HEALTHHCO3 (Bld) [Moles/Vol]22.8 mmol/L21.0 - 28.0 mmol/LBON SECSUM[facility]ENTERY HEALTHNegative Base Excess, Rzx8Sxfe1.0 - 2.0BON SECSUMMIT PAC[facility] MEDICAL CENTERY HEALTHOxygen saturation in Etqgc745 %High94.0 - 98.0 %BON [facility] rZB950.4BON [facility]MER[facility] pH7.020Zxe8.350 - 7.450BON [facility] PO2 187.4HighBON [facility] HOSPITALBasic Metabolic Panelon 85-01-8431Nxnbo gap [Moles/Vol]8 mmol/LLow9 - 17 mmol/LBON [facility] HEALTHCalcium [Mass/Vol]9.1 mg/dL8.6 - 10.4 mg/dLBON [facility] HEALTHChloride [Moles/Vol]111 mmol/LHigh 98 - 107 mmol/LBON [facility] HEALTHCO2 [Moles/Vol]19 mmol/LLow20 - 31 mmol/L BON [facility] HEALTHCreatinine [Mass/Vol]1.94 mg/dLHigh0.70 - 1.20 mg/dLBON SEC[facility]RS [facility] HOS[facility]ITALY HEALTHGFR/1.73 sq M.predicted MDRD (S/P/Bld) [Vol rate/Area]45 mL/min/{1.73_m2}Low- PINFBON SECSAVO[facility] HEALTHGlucose [Mass/Vol]93 mg/dL70 - 99 mg/dLBON [facility] SAM[facility] HOSPITALY HEALTHPotassium [Moles/Vol]5.0 mmol/L3.7 - 5.3 mmol/L BON [facility] HEALTHSodium [Moles/Vol]138 mmol/L135 - 144 mmol/LBON SECSAVO[facility]ENTER HEALTHUrea nitrogen [Mass/Vol]20 mg/dL6 - 20 mg/dLBON [facility] HEALTH Anion gap [Moles/Vol]13 mmol/L9 - 17 mmol/LBON [facility] HEALTHCalcium [Mass/Vol]10.6 mg/dLHigh8.6 - 10.4 mg/dLBON [facility] HEALTHChloride [Moles/Vol]110 mmol/LHigh98 - 107 mmol/LBON [facility] HEALTHCO2 [Moles/Vol] 17 mmol/LLow20 - 31 mmol/LBON [facility] HEALTHCreatinine [Mass/Vol]1.79 mg/dLHigh0.70 - 1.20 mg/dLBON [facility] HOSPITALGFR/1.73 sq M.predicted MDRD (S/P/Bld) [Vol rate/Area]49 mL/min/{1.73_m2}Low- PINFBON [facility] Glucose [Mass/Vol]103 mg/nZOixa84 - 99 mg/dLBON [facility] Interpretation and review of laboratory resultsAbnormalCAR[facility]ION [facility] Potassium [Moles/Vol]4.6 mmol/L3.7 - 5.3 mmol/LBON [facility] HOSPITALSodium [Moles/Vol]140 mmol/L135 - 144 mmol/LBON [facility] METHOD[facility] HOS[facility]ITALUrea nitrogen [Mass/Vol]22 mg/dLHigh6 - 20 mg/dLBON [facility] HOSPITALBasic Metabolic Profon [id number] gap [Moles/Vol]8 mmol/LLow9-17[facility]. [facility] HospitalComment on above:Performed By: #### BMP, MG, CBC, PT, PTT #### [employer] [address] [place] [address] Paper Sales Manager: MELLY Pereyraalcium [Mass/Vol]9.1 mg/dLNormal8.6-10.4[facility]. [facility] HospitalComment on above:Performed By: #### BMP, MG, CBC, PT, PTT #### [employer] [address] [place] [address] Paper Sales Manager: MELLY Pereyrahloride [Moles/Vol]111 mmol/ZQopw69-727LowrwSt. Francis HospitalComment on above:Performed By: #### BMP, MG, CBC, PT, PTT #### [employer] [address] [place] [address] Paper Sales Manager: Vincent Sy MDCO2 [Moles/Vol]19 mmol/HJpg59-88ZuktlSt. Francis HospitalComment on above:Performed By: #### BMP, MG, CBC, PT, PTT #### [facility] [employer] [address] [place] [id number] Paper Sales Manager: MELLY Pereyrareatinine [Mass/Vol]1.94 mg/dLHigh0.70-1.20 [facility] HospitalComment on above:Performed By: #### BMP, MG, CBC, PT, PTT #### [address] [address] Paper Sales Manager: Vincent Sy MDGFR/1.73 sq M.predicted among non-blacks MDRD (S/P/Bld) [Vol rate/Area]45 mL/min/{1.73_m2}Low>60St. [facility] HospitalComment on above:Result Comment: These results are [...] #### BMP, MG, CBC, PT, PTT #### [facility] [employer] [address] [place] [id number] Paper Sales Manager: Vincent Sy MDGlucose [Mass/Vol]93 mg/dJAervzm80-84YpibiSanta Ana Hospital Medical CenterComment on above:Performed By: #### BMP, MG, CBC, PT, PTT #### [facility] [employer] [address] [place], [place] [address] Paper Sales Manager: DOLLY Pereyraotassium [Moles/Vol]5.0 mmol/LNormal3.7-5.3 [facility] Francis HospitalComment on above:Performed By: #### BMP, MG, CBC, PT, PTT #### [facility] [employer] [address] [place] [address] 31175 Paper Sales Manager: LISA Pereyraodium [Moles/Vol]138 mmol/JBqkpuw399-457WzicrSt. Francis HospitalComment on above:Performed By: #### BMP, MG, CBC, PT, PTT #### [facility] [address] [place] [address] 25153 Paper Sales Manager: Vincent Sy MDUrea nitrogen [Mass/Vol]20 mg/dLNormal6-20St. Francis HospitalComment on above:Performed By: #### BMP, MG, CBC, PT, PTT #### [facility] [address] [place] [address] 65945 Paper Sales Manager: Vincent Sy MDAnion gap [Moles/Vol]13 mmol/LNormal9-17St. Francis HospitalComment on above:Performed By: #### BMP, MG, CBC, PT, PTT #### [facility] [employer] [address] [place] [address] 18290 Paper Sales Manager: MELLY Pereyraalcium [Mass/Vol]10.6 mg/dLHigh8.6-10.4St. Francis HospitalComment on above:Performed By: #### BMP, MG, CBC, PT, PTT #### [facility] [employer] [address] [place] [address] 69322 Paper Sales Manager: Vincent Sy MDChloride [Moles/Vol]110 mmol/YKpwy29-852JksqhSt. Francis HospitalComment on above:Performed By: #### BMP, MG, CBC, PT, PTT #### [facility] [address] [place] [address] 63259 Paper Sales Manager: Vincent Sy MDCO2 [Moles/Vol]17 mmol/VPei59-66TbgxoSt. Francis HospitalComment on above:Performed By: #### BMP, MG, CBC, PT, PTT #### [facility] [employer] [address] [place] [address] 92559 Paper Sales Manager: MELLY Pereyrareatinine [Mass/Vol]1.79 mg/dLHigh0.70-1.20 [facility] Francis HospitalComment on above:Performed By: #### BMP, MG, CBC, PT, PTT #### [place] [address] Paper Sales Manager: Vincent Sy MDGFR/1.73 sq M.predicted among non-blacks MDRD (S/P/Bld) [Vol rate/Area]49 mL/min/{1.73_m2}Low>60St. Francis HospitalComment on above:Result Comment: These results are [...] #### BMP, MG, CBC, PT, PTT #### [facility] [employer] [address] [place] [address] Paper Sales Manager: Vincent Sy MDGlucose [Mass/Vol]103 mg/rMZgzt90-18HbpugSanta Ana Hospital Medical CenterComment on above:Performed By: #### BMP, MG, CBC, PT, PTT #### [facility] [employer] [address] [place] [address] Paper Sales Manager: DOLLY Pereyraotassium [Moles/Vol]4.6 mmol/LNormal3.7-5.3 [facility] Francis HospitalComment on above:Performed By: #### BMP, MG, CBC, PT, PTT #### [facility] [employer] [address] [place] [address] Paper Sales Manager: LISA Pereyraodium [Moles/Vol]140 mmol/RCdwhon380-509AxmyySt. Francis HospitalComment on above:Performed By: #### BMP, MG, CBC, PT, PTT #### [place] [address] Paper Sales Manager: Vincent Sy MDUrea nitrogen [Mass/Vol]22 mg/dLHigh6-20St. Francis HospitalComment on above:Performed By: #### BMP, MG, CBC, PT, PTT #### [facility] [address] [place], [place] 1486[address] Paper Sales Manager: MELLY PereyraALCIUM, IONIC (POC)on 90-09-9755RIQ Ionized Calcium1.48 mmol/LHigh1.15 - 1.33 mmol/LBON [facility] Ionized Calcium1.44 mmol/LHigh1.15 - 1.33 mmol/LBON [facility] Ionized Calcium1.48 mmol/LHigh1.15 - 1.33 mmol/LBON [facility] Ionized Calcium1.27 mmol/L1.15 - 1.33 mmol/LBON [facility] Ionized Calcium 1.24 mmol/L1.15 - 1.33 mmol/LBON [facility] Ionized Calcium1.31 mmol/L1.15 - 1.33 mmol/LBON [facility] Ionized Calcium1.35 mmol/L High1.15 - 1.33 mmol/LBON [facility] Ionized Calcium1.37 mmol/LHigh 1.15 - 1.33 mmol/LBON [facility]ALTHCon 41-33-6258Togzmlwdfri distribution width (RBC) [Ratio]13.5 %Uoavsz87.8-14.4St. Francis HospitalComment on above:Performed By: #### BMP, MG, CBC, PT, PTT #### [facility] [address] [place], [place] [phone] Paper Sales Manager: Vincent Sy MDHematocrit (Bld) [Volume fraction]34.9 %Low 40.7-50.3MSanta Ana Hospital Medical CenterComment on above:Performed By: #### BMP, MG, CBC, PT, PTT #### [facility] [address] [place], [place] 5120508 Paper Sales Manager: Vincent Sy MDHemoglobin (Bld) [Mass/Vol]11.6 g/dLLow13.0-17.0 St[facility] Francis HospitalComment on above:Performed By: #### BMP, MG, CBC, PT, PTT #### [address] [address] Paper Sales Manager: JODEE PereyraCH (RBC) [Entitic mass]29.7 pdWuudxj28.2-33.5 [facility] Francis HospitalComment on above:Performed By: #### BMP, MG, CBC, PT, PTT #### [place] [address] Paper Sales Manager: JENS PereyraC (RBC) [Mass/Vol]33.2 g/kPIdfimt56.4-34.8 [facility] Francis HospitalComment on above:Performed By: #### BMP, MG, CBC, PT, PTT #### [place] [address] Paper Sales Manager: JODEE PereyraCV (RBC) [Entitic vol]89.3 [address]GDrgyrp28.6-102.9 [facility] Francis HospitalComment on above:Performed By: #### BMP, MG, CBC, PT, PTT #### [place] [address] Paper Sales Manager: Vincent Sy MDNRBC Automated0.0 per [address] Francis HospitalComment on above:Performed By: #### BMP, MG, CBC, PT, PTT #### [facility] [employer] [address] [place] [address] Paper Sales Manager: Sol Pereyratelet mean volume (Bld) [Entitic vol]10.5 fL Normal8.1-13.5St. Francis HospitalComment on above:Performed By: #### BMP, MG, CBC, PT, PTT #### [address] [address] Paper Sales Manager: DOLLY Pereyralatelets (Bld) [#/Vol]154 10*3/tOPtsrks494-995 St. Francis HospitalComment on above:Performed By: #### BMP, MG, CBC, PT, PTT #### [facility] [address] [place] [address]30 Paper Sales Manager: Vincent Sy MDRBC (Bld) [#/Vol]3.91 10*6/uLLow4.21-5.77St. Francis HospitalComment on above:Performed By: #### BMP, MG, CBC, PT, PTT #### [facility] [employer] [address] [place] [address]20 Paper Sales Manager: Vincent Sy MDWBC (Bld) [#/Vol]11.9 10*3/uLHigh3.5-11.3MSanta Ana Hospital Medical CenterComment on above:Performed By: #### BMP, MG, CBC, PT, PTT #### [facility] [employer] [address] [place] [address] 42518 Paper Sales Manager: Vincent Sy MDHematocrit (Bld) [Volume fraction]34.9 %Low40.7 - 50.3 %[facility] HOSPITALHemoglobin (Bld) [Mass/Vol]11.6 g/dLLow13.0 - 17.0 g/dLBON [facility] HOSPITALInterpretation and review of laboratory results AbnormalBON [facility] HOSPITALH (RBC) [Entitic mass]29.7 pg25.2 - 33.5 pgBON [facility] HOSPITALHC (RBC) [Mass/Vol]33.2 g/dL28.4 - 34.8 g/dLBON [facility] SHE[facility] HOSPITALV (RBC) [Entitic vol]89.3 fL82.6 - 102.9 fLCARILION ROANOKE COMMUNITY HOSPITALNRBC Automated0.00.0 per 100 WBCBON [facility] HOSPITALPlatelet distribution width (Bld) [Ratio]13.5 %11.8 - 14.4 %[facility] Platelet mean volume (Bld) [Entitic vol]10.5 fL8.1 - 13.5 fLBON [facility] HOSPITALPlatelets (Bld) [#/Vol]154 10*3/uLBON [facility] HOSPITALRBC (Bld) [#/Vol]3.91 10*6/uLLow4.21 - 5.77 m/uLBON [facility] HOSPITALWBC (Bld) [#/Vol] 11.9 10*3/uLHighBON [facility] HEALTHCHLORIDE (POC)on 71-24-8570Vjqahrql [Moles/Vol]110 mmol/LHigh98 - 107 mmol/LBON [facility] HOSPITALCalcium, Ionicon 88-56-6350Mjlgasf [Moles/Vol]1.35 mmol/LHigh1.13-1.33 [facility] HospitalComment on above:Performed By: #### BMP, MG, CBC, PT, PTT #### [employer] [facility] [address] [place] [phone] Paper Sales Manager: Vincent Sy, MDCalcium, Ionizedon 03-90-6894Wuyixit.ionized (Bld) [Moles/Vol]1.35 mmol/LHigh1.13 - 1.33 mmol/LBON [facility] Interpretation and review of laboratory resultsAbnormalBON [facility] BON [facility] HOSPITALCreatinine W/GFR Point of Careon 29-99-2328Pavwhfgsmc [Mass/Vol]1.87 mg/dLHigh0.51 - 1.19 mg/dLBON [facility] HOSPITALeGFR, POC47 mL/min/1.65y6BJV [facility] HOSPITALELECTROLYTES PLUSon 61-77-5728Zhwrp gap [Moles/Vol]13 mmol/L7 - 16 mmol/LBON [facility] HOSPITALChloride [Moles/Vol]111 mmol/LHigh98 - 107 mmol/LBON [facility] HOSPITALCO2 [Moles/Vol]20 mmol/LLow22 - 30 mmol/LBON [facility] HOSPITALPotassium [Moles/Vol]5.0 mmol/LHigh3.5 - 4.5 mmol/LBON [facility] HEALTHSodium [Moles/Vol]143 mmol/L138 - 146 mmol/LBON [facility] HEALTHHemoglobin and hematocrit, bloodon 47-37-7207Skynklkrcj (Bld) [Volume fraction]35 %Low41 - 53 %BON [...] HEALTHHemoglobin (Bld) [Mass/Vol]12.8 g/dLLow13.5 - 17.5 g/dLBON [facility] METHODIST HOSPITALLactic Acid, POCon 15-35-6395OVH Lactic Acid0.61 mmol/L0.56 - 1.39 mmol/LBON [facility] POC Lactic Acid0.88 mmol/L0.56 - 1.39 mmol/LBON [facility] HEALTHMagnesiumon 12-84-8353Msnoqkqwt [Mass/Vol]3.1 mg/dLHigh1.6-2.6[facility] Medical CenterComment on above:Performed By: #### BMP, MG, CBC, PT, PTT #### [facility] [address] [place] [address] Paper Sales Manager: Vincent Sy MDMagnesium [Mass/Vol]3.1 mg/dLHigh1.6 - 2.6 mg/dL BON [facility]ITALNo Panel Informationon 59-16-5570Gbqssrpusomoen and review of laboratory resultsAbnormalFORT [facility] HEALTHInterpretation and review of laboratory results AbnormalBON [facility] HEALTHInterpretation and review of laboratory resultsAbnormalWELLMONT [facility] HEALTHInterpretation and review of laboratory resultsAbnormalWELLMONT [facility] HEALTHInterpretation and review of laboratory results AbnormalBON [facility] HEALTHInterpretation and review of laboratory resultsAbnormalWELLMONT [facility] HEALTHInterpretation and review of laboratory resultsAbnormalWELLMONT [facility] HEALTHInterpretation and review of laboratory results AbnormalBON [facility] HEALTHInterpretation and review of laboratory resultsAbnormalWELLMONT [facility] HEALTHInterpretation and review of laboratory resultsAbnormalCH[facility] VCUPOC Global Hemostasis (TEG 6S)on 23-58-1543Dzqxy TEG64.0 deg63.0 - 78.0 degBON [facility]IVERSIDE METHODIST HOSPITALFibrinogen, Functional TEG23.3 mm15.0 - 32.0 mmCARILION ROANOKE COMMUNITY HOSPITALInterpretation and review of laboratory resultsAbnormalCARILION ROANOKE COMMUNITY HOSPITALKinetics TEG2.3 minHigh0.8 - 2.1 minM[facility]VIL[facility] (Max Clot) TEG57.2 mm52.0 - 69.0 mmMARTINSVILLE MEMORIAL [facility](Max Clot) Rapid TEG61.4 mm52.0 - 70.0 mmCARILION [facility]ANOKE COMMUNITY [facility]ITAL Performing LocationPerformed at [facility] Perfusion BON SEC[facility] CHARLES HOSPITALReaction Time TEG8.7 min4.6 - 9.1 minBON [facility] HOSPITALReaction Time TEG w Pncshxp72.7 minHigh4.3 - 8.3 minCH[facility]DR[facility] AT VCUAngle TEG78.0 deg63.0 - 78.0 degCARILION ROANOKE COMMUNITY HOSPITALFibrinogen, Functional TEG33.1 lzOavt79.0 - 32.0 mmCARILION ROANOKE COMMUNITY HOSPITALInterpretation and review of laboratory resultsAbnormalCARILION ROANOKE COMMUNITY HOSPITALKinetics TEG0.8 min0.8 - 2.1 minM[facility]VIL[facility] (Max Clot) TEG 66.2 mm52.0 - 69.0 mmMARTINSVILLE [facility]OR[facility](Max Clot) Rapid TEG68.1 mm52.0 - 70.0 mmCARILION ROANOKE COMMUNITY HOSPITALPerforming LocationPerformed at [facility] PerfusionBON [facility] HOSPITALReaction Time TEG5.5 min 4.6 - 9.1 minCARILION ROANOKE COMMUNITY HOSPITALReaction Time TEG w Heparin5.8 min4.3 - 8.3 minCOMMUNITY HEALTH SYSTEMS Glucose Fingerstickon 45-24-4696Xtilowc [Mass/Vol]86 mg/dL75 - 110 mg/dLBON [facility] CITY HOSPITALGlucose [Mass/Vol]106 mg/dL75 - 110 mg/dLBON REG[facility] CITY HOSPITALGlucose [Mass/Vol]86 mg/dL75 - 110 mg/dLBON [facility] CITY HOSPITALGlucose [Mass/Vol]88 mg/dL75 - 110 mg/dLBON [facility] HOSPITALBON [facility] HEALTHGlucose [Mass/Vol]90 mg/dL 75 - 110 mg/dLBON [facility] HOSPITALBON SECMERCY [facility] ST[facility] CHARLES HOSPITALPOCT Glucoseon 09-84-2892Typjrsz [Mass/Vol]136 mg/rJXesi30 - 100 mg/dLBON [facility] HEALTH Glucose [Mass/Vol]85 mg/dL74 - 100 mg/dLBON [facility] HEALTHGlucose [Mass/Vol]100 mg/dL74 - 100 mg/dLBON [facility] HEALTHGlucose [Mass/Vol]106 mg/mYLaam86 - 100 mg/dLBON [facility] HEALTHGlucose [Mass/Vol]119 mg/rPYqok46 - 100 mg/dLBON [facility] HEALTHGlucose [Mass/Vol]90 mg/dL74 - 100 mg/dLBON [facility] HEALTHGlucose [Mass/Vol]95 mg/dL74 - 100 mg/dLBON [facility] HEALTHGlucose [Mass/Vol]89 mg/dL74 - 100 mg/dLBON [facility] HEALTHGlucose [Mass/Vol]104 mg/wWDavs83 - 100 mg/dLBON [facility] HOSPITALCT urea (BUN)on 91-92-8027Eyul nitrogen [Mass/Vol]20 mg/dL8 - 26 mg/dLBON [facility] POTASSIUM (POC)on 85-96-4117Cdfiotmze [Moles/Vol]4.9 mmol/LHigh3.5 - 4.5 mmol/L BON [facility] HEALTHPotassium [Moles/Vol]5.3 mmol/LHigh3.5 - 4.5 mmol/LBON [facility] HEALTHPotassium [Moles/Vol]5.6 mmol/LHigh3.5 - 4.5 mmol/LBON [facility] HEALTHPotassium [Moles/Vol]6.1 mmol/LCritically high3.5 - 4.5 mmol/LBON [facility] HEALTHPotassium [Moles/Vol]5.3 mmol/LHigh3.5 - 4.5 mmol/LBON [facility] HEALTHPotassium [Moles/Vol]4.8 mmol/LHigh3.5 - 4.5 mmol/LBON [facility] HEALTHPotassium [Moles/Vol]4.5 mmol/L3.5 - 4.5 mmol/LBON SECSUM[facility]ICAL CENTERY HEALTHPTon 66-91-6459XBO Coag (PPP) [Relative time]1.3 {INR} NormalSt. Francis HospitalComment on above:Result Comment: Therapeutic Range: Moderate Anticoagulant Intensity: INR = 2.0-3.0 High Anticoagulant Intensity: INR = 2.5-3.5Performed By: #### BMP, MG, CBC, PT, PTT #### [facility] [address] [place], [place] [phone] Paper Sales Manager: LALO Pereyra Coag (PPP) [Time]15.8 sHigh11.7-14.9St. Francis HospitalComment on above:Performed By: #### BMP, MG, CBC, PT, PTT #### [employer] [address] [place] [address] Paper Sales Manager: Deng Pereyraime-INRon 77-05-8029PHS Coag (PPP) [Relative time]1.3 {INR}[facility] HOSPITALInterpretation and review of laboratory resultsAbnormalBON [facility]SA[facility] HEALTHPT Coag (PPP) [Time]15.8 sHighBON SECSUMMIT PACIFIC MEDICAL CENTERY HEALTHSODIUM (POC)on 50-14-9452Znmksx [Moles/Vol]143 mmol/L138 - 146 mmol/LBON [facility] HEALTHSodium [Moles/Vol]140 mmol/L138 - 146 mmol/LBON SECSUM[facility]ENTERY HEALTHSodium [Moles/Vol]138 mmol/L138 - 146 mmol/LBON [facility]ERY HEALTHSodium [Moles/Vol]140 mmol/L138 - 146 mmol/LBON [facility] HEALTH Sodium [Moles/Vol]143 mmol/L138 - 146 mmol/LBON [facility]ERY HEALTHSodium [Moles/Vol]144 mmol/L138 - 146 mmol/LBON SEC[facility]ERY HEALTHType + Screenon 16-39-9044Myut + ScreenSample Expiration 06/02/2022,2359 Arm Band Number [id number] ABO/Rh(D) B POSITIVE Antibody Screen NEGATIVE Unit Number [id number] Blood Component Type Leukocyte Reduced Red Cell Unit Division 00 Status of Unit REL FROM ALLOC Transfusion Status OK TO TRANSFUSE Crossmatch Result COMPATIBLE Unit Number [id number] Blood Component Type Leukocyte Reduced Red Cell Unit Division 00 Status of Unit REL FROM ALLOC Transfusion Status OK TO TRANSFUSE Crossmatch Result COMPATIBLE Unit Number [id number] Blood Component Type Leukocyte Reduced Red Cell Unit Division 00 Status of Unit REL FROM ALLOC Transfusion Status OK TO TRANSFUSE Crossmatch Result COMPATIBLE Unit Number [id number] Blood Component Type Leukocyte Reduced Red Cell Unit Division 00 Status of Unit REL FROM ALLOC Transfusion Status OK TO TRANSFUSE Crossmatch Result COMPATIBLENoVan Wert County HospitalComment on above:Performed By: #### BMP, MG, CBC, PT, PTT #### [employer] [address] [place], [place] [phone] Paper Sales Manager: SUSIE Pereyra CHEST PORTABLEon 56-71-4055VE CHEST PORTABLE EXAMINATION: ONE XRAY VIEW OF [...] Signed by: Miki Delgado MD 06/02/22 Final resultNoKettering Health MiamisburgPN RIS CONSOLIDATEDPN RIS CONSOLIDATEDBON [facility] [employer] Work Phone: radiology Study observation (narrative)[employer] Phone: XR CHEST PORTABLEOrdered By: Miki Delgado on [id number] PLACENTIA-LINDA HOSPITALTinkoff Digital Work Phone: [facility] [phone] Coag (Bld) [Time]66.0 sHigMary Washington Hospital HEALTHInterpretation and review of laboratory resultsAbnormCarilion Stonewall Jackson HospitalaPTT Coag (Bld) [Time]60.4 sHigh 23.0-36.5St. Francis HospitalComment on above:Result Comment: NOTE: NEW REFERENCE RANGEPerformed By: #### BMP, MG, CBC, PT, PTT #### [facility] [address] [place] [address] [phone] Paper Sales Manager: Vincent Sy MDaPTT Coag (Bld) [Time]60.4 sHigMary Washington Hospital HEALTHInterpretation and review of laboratory resultsAbnoMilbank Area Hospital / Avera HealthaPTT Coag (Bld) [Time]77.8 sHigh23.0-36.5 [facility] HospitalComment on above:Result Comment: NOTE: NEW REFERENCE RANGEPerformed By: #### PTT #### [employer] [address] [place], [place] [id number] Paper Sales Manager: Vincent Sy MDaPTT Coag (Bld) [Time]77.8 [facility] VCUInterpretation and review of laboratory resultsAbnormCarilion Stonewall Jackson HospitalaPTT Coag (Bld) [Time]68.8 sHigh23.0-36.5 St[facility] HospitalComment on above:Result Comment: NOTE: NEW REFERENCE RANGEPerformed By: #### BMP, MG, CBC, PT, PTT #### [facility] [address] [place] [address] [phone] Paper Sales Manager: Vincent Sy MDaPTT Coag (Bld) [Time]68.8 [facility] HEALTHInterpretation and review of laboratory resultsAbnoMilbank Area Hospital / Avera HealthBasic Metabolic Panelon 68-87-8132JFU/1.73 sq M.predicted MDRD (S/P/Bld) [Vol rate/Area]55 mL/min/{1.73_m2}Low- PINFBON [facility] HOSPITALInterpretation and review of laboratory resultsAbnormalBON [facility] CITY HOSPITALBasic Metabolic Profon 06-01-2022 GFR/1.73 sq M.predicted among non-blacks MDRD (S/P/Bld) [Vol rate/Area]55 mL/min/{1.73_m2}Low>60St. Francis HospitalComment on above:Result Comment: These results are [...] renal tubular secretion.Performed By: #### PTT #### [employer] [address] [place] [address] Paper Sales Manager: Vincent Sy MDAnion gap [Moles/Vol]7 mmol/LLow9-17[facility] on above:Performed By: #### PTT #### [employer] [address] [place] [address] Paper Sales Manager: MELLY Pereyraalcium [Mass/Vol]10.6 mg/dLHigh8.6-10.4BCentra Bedford Memorial Hospital on above:Performed By: #### PTT #### [employer] [address] [place] [address] Paper Sales Manager: Vincent Sy MDChloride [Moles/Vol]104 mmol/MDqbwgr32-575KKMSentara Northern Virginia Medical Center on above:Performed By: #### PTT #### [employer] [address] [place], [place] [phone] Paper Sales Manager: Vincent Sy MDCO2 [Moles/Vol]25 mmol/TEgovqj37-30JVHSentara Northern Virginia Medical Center on above:Performed By: #### PTT #### [address] [address] Paper Sales Manager: MELLY Pereyrareatinine [Mass/Vol]1.65 mg/dLHigh0.70-1.20BON SECMER[facility] CHARLES HOSPITALComment on above:Performed By: #### PTT #### [address] [address] Paper Sales Manager: Vincent Sy MDGlucose [Mass/Vol]246 mg/hOCdwj20-84YDW SECMERCY [facility] CHARLES HOSPITALComascension st. john hospital on above:Performed By: #### PTT #### [address] [address] Paper Sales Manager: Vincent Sy MDPotassium [Moles/Vol]4.4 mmol/LNormal3.7-5.3BON [facility] HOSPITALComascension st. john hospital on above:Performed By: #### PTT #### [address] [address] Paper Sales Manager: Vincent Sy MDSodium [Moles/Vol]136 mmol/SOsgvwh042-428YMS SECMERCY [facility] ST[facility] CHARLES HOSPITALComascension st[facility] john hospital on above:Performed By: #### PTT #### [address] [address] Paper Sales Manager: Vincent Sy MDUrea nitrogen [Mass/Vol]20 mg/dLNormal6-20BON [facility] HOSPITALComascension st. john hospital on above:Performed By: #### PTT #### [address] [address] Paper Sales Manager: MELLY Pereyrault,Urineon 17-29-7242Fgtq,UrineSpecimen Description .URINE Culture NO SIGNIFICANT GROWTH Report Status FINAL 05/31/2022NoVan Wert County HospitalComment on above:Performed By: #### PLT #### [address] [address] Paper Sales Manager: Vincent Sy MDEKG 12 LeadOrdered By: Prateek Esquivel on 79-61-6157Sknqvn Ljso33PHLGUR SECIxtens HEALTH Work Phone: P [id number] SECDigital MagicsY HEALTH Work Phone: P-R Efukinhg334 msBON SECDigital MagicsY HEALTH Work Phone: Q-T Tofebwsh949 msBON SECOURS [facility] Work Phone: QRS Irzdytcs60 msBON [facility] Work Phone: QTc Calculation (Bazett)410 msBON SECDigital MagicsY HEALTH Work Phone: R [id number] [facility] Work Phone: T [id number] [facility] Work Phone: Ventricular [id number] [facility] Work Phone: BON [employer]CC[employer] Work Phone: EKG 12 Leadon 88-16-4203YBDW STV MUSEBON SECCurexo Technology Work Phone: Hemoglobin and Hematocriton 56-21-9324Naqoqkruom (Bld) [Volume fraction]39.3 %Low40.7 - 50.3 %BON [facility] HOSPITALHemoglobin (Bld) [Mass/Vol]13.0 g/dL13.0 - 17.0 g/dLBON [facility] HOSPITALInterpretation and review of laboratory resultsAbnormalBON SECCLEVELAND [facility]IN[facility]ITAL SECMERCY HEALTH ST. CHARLES HOSPITALHgb/Hcton 77-29-6769Wldvzrdgwz (Bld) [Volume fraction]39.3 %Low40.7-50.3 [facility] [facility] HospitalComment on above:Performed By: #### PTT #### [employer] [address] [place] [address] Paper Sales Manager: Vincent Sy MDHemoglobin (Bld) [Mass/Vol]13.0 g/dLNormal 13.0-17.0St. Francis HospitalComment on above:Performed By: #### PTT #### [employer] [address] [place] [address] [phone] Paper Sales Manager: HAIDER Pereyra Glucose Fingerstickon 10-11-5597Ibjexeo [Mass/Vol]232 mg/rGXgcd88 - 110 mg/dLBON [facility] HOSPITALInterpretation and review of laboratory resultsAbnormalCHILDREN'[facility] AT VCUGlucose [Mass/Vol]193 mg/yCQqgp28 - 110 mg/dLBON [facility] HEALTH Interpretation and review of laboratory resultsAbnormalMOUNTAIN VIEW REGIONAL MEDICAL CENTERGlucose [Mass/Vol]234 mg/lCNxfr57 - 110 mg/dLBON [facility] HEALTHInterpretation and review of laboratory resultsAbnormalCHILDREN'[facility] AT VCUGlucose [Mass/Vol]141 mg/hIYvcz81 - 110 mg/dLBON [facility] HEALTHInterpretation and review of laboratory results AbnormalBON [facility]AP[facility] CITY HOSPITALPlatelet Counton 24-00-0085Vrkorqvkv (Bld) [#/Vol]216 10*3/vOAgehua521-575HwwhgSt. Francis HospitalComment on above:Performed By: #### BMP, MG, CBC, PT, PTT #### [facility] [address] [place] [address] [id number] Paper Sales Manager: DOLLY Pereyralatelets (Bld) [#/Vol]216 10*3/[facility] Medical CenterAPTTon [id number] Coag (Bld) [Time]38.6 sHigh23.0-36.5St. Francis HospitalComment on above:Result Comment: NOTE: NEW REFERENCE RANGEPerformed By: #### PT, GLYHGB, CDP #### [facility]Eth[facility] [address] [place] [address] [phone] Paper Sales Manager: Vincent Sy MDaPTT Coag (Bld) [Time]38.6 sHighBON SIERRA KINGS [facility]OSPITAL HEALTHInterpretation and review of laboratory resultsAbnormalBON [facility] HEALTHBON [facility] HEALTHArterial Blood Gas, POCon [id number] TestPositiveBON [facility] RPZEGMPAC93.0[facility] HEALTHHCO3 (Bld) [Moles/Vol]24.1 mmol/L21.0 - 28.0 mmol/LBON [facility] HEALTHNegative Base Excess, Art20.0 - 2.0BON [facility] HOSPITALOxygen saturation in Blood98 %94.0 - 98.0 %BON [facility] aSE604.3BON [facility] pH7.315 Low7.350 - 7.450BON [facility] EB3670.8HighBON [facility] Sample SiteRight Radial ArteryBON [facility] HOSPITALBasic Metabolic Panelon 94-32-6129Wfban gap [Moles/Vol]9 mmol/L9 - 17 mmol/LBON [facility] HEALTH Calcium [Mass/Vol]10.0 mg/dL8.6 - 10.4 mg/dLBON [facility] HEALTHChloride [Moles/Vol]107 mmol/L98 - 107 mmol/LBON [facility] HEALTHCO2 [Moles/Vol]21 mmol/L20 - 31 mmol/LBON [facility] HEALTHCreatinine [Mass/Vol]1.65 mg/dLHigh 0.70 - 1.20 mg/dLBON [facility]Y HEALTHGFR/1.73 sq M.predicted MDRD (S/P/Bld) [Vol rate/Area]55 mL/min/{1.73_m2}Low- PINFBON [facility] HEALTHGlucose [Mass/Vol]125 mg/lICgfz70 - 99 mg/dLBON [facility] HEALTHInterpretation and review of laboratory resultsAbnormalBON SEC[facility]ERY HEALTHPotassium [Moles/Vol]4.6 mmol/L3.7 - 5.3 mmol/LBON [facility]Y HEALTHSodium [Moles/Vol] 137 mmol/L135 - 144 mmol/LBON [facility]ITALY HEALTHUrea nitrogen [Mass/Vol]23 mg/dLHigh6 - 20 mg/dLBON [facility] HEALTHBON [facility] HOSPITALBasic Metabolic Profon 39-87-4733Xqvht gap [Moles/Vol]9 mmol/LNormal9-17St. [facility] HospitalComment on above:Performed By: #### PT, GLYHGB, CDP #### [facility] [employer] [address] [place] [address] 29859 Paper Sales Manager: MELLY Pereyraalcium [Mass/Vol]10.0 mg/dLNormal8.6-10.4St. Francis HospitalComment on above:Performed By: #### PT, GLYHGB, CDP #### [facility] [employer] [address] [place] [address] Paper Sales Manager: MELLY Pereyrahloride [Moles/Vol]107 mmol/IXajclz14-959OdefeSt. Francis HospitalComment on above:Performed By: #### PT GLYHGB, CDP #### [facility] [address] [place] [address] 76571 Paper Sales Manager: Vincent Sy MDCO2 [Moles/Vol]21 mmol/FHlxamw47-29CakgeSt. Francis HospitalComment on above:Performed By: #### PT, GLYHGB, CDP #### [facility] [employer] [address] [place] [address] 31643 Paper Sales Manager: MELLY Pereyrareatinine [Mass/Vol]1.65 mg/dLHigh0.70-1.20 [facility] HospitalComment on above:Performed By: #### PT, GLYHGB, CDP #### [facility] [employer] [address] [place] [address] 63126 Paper Sales Manager: Vincent Sy MDGFR/1.73 sq M.predicted among non-blacks MDRD (S/P/Bld) [Vol rate/Area]55 mL/min/{1.73_m2}Low>60St. Francis HospitalComment on above:Result Comment: These results are [...] #### PT GLYHGB, CDP #### [facility] [address] [place] [address] 04596 Paper Sales Manager: Vincent Sy MDGlucose [Mass/Vol]125 mg/jGWine87-35UljwjSanta Ana Hospital Medical CenterComment on above:Performed By: #### PT GLYHGB, CDP #### [facility] [address] [place] [address] 07251 Paper Sales Manager: DOLLY Pereyraotassium [Moles/Vol]4.6 mmol/LNormal3.7-5.3 [facility] HospitalComment on above:Performed By: #### PT GLYHGB, CDP #### [facility] [address] [place] [address] 37855 Paper Sales Manager: LISA Pereyraodium [Moles/Vol]137 mmol/HJffhlf879-253RpypdSt. Francis HospitalComment on above:Performed By: #### PT, GLYHGB, CDP #### [facility] [address] [place] [address] 49364 Paper Sales Manager: Vincent Sy MDUrea nitrogen [Mass/Vol]23 mg/dLHigh6-20St. Francis HospitalComment on above:Performed By: #### PT GLYHGB, CDP #### [facility] [address] [place] [address] 67929 Paper Sales Manager: Vincent Sy MDHemoglobin A1Con 37-17-4447Tgfehgv [Mass/Vol]243 mg/dLNormalSt. Francis HospitalComment on above:Result Comment: The ADA and AACC recommend providing the estimated average glucose result to permit better patient understanding of their HBA1c result.Performed By: #### PT, GLYHGB, CDP #### [facility] [address] [place] [address] 72420 Paper Sales Manager: Vincent Sy MDHbA1c (Bld) [Mass fraction]10.1 %High4.0-6.0 [facility] HospitalComment on above:Performed By: #### PT, GLYHGB, CDP #### [facility] [address] [place] [address] 78027 Paper Sales Manager: Vincent Sy MDHemoglobin A1con 42-62-5896Pkqgpkf glucose Estimated from glycated hemoglobin (Bld) [Mass/Vol]243 mg/dLBON [facility] HOSPITALHbA1c (Bld) [Mass fraction]10.1 %High4.0 - 6.0 %[facility] Interpretation and review of laboratory resultsAbnormCJW Medical CenterMRSA DNA Probe, Nasalon 79-64-8207Arsqmyouohuvjx and review of laboratory resultsAbnormalCARILION ROANOKE COMMUNITY HOSPITALMRSA, DNA, Nasal POSITIVE: MRSA DNA detected by nucleic acid amplification.AbnormalNEGATIVECARILION ROANOKE COMMUNITY HOSPITALSpecimen Description.NASAL SWABBON BLACK HILLS SURGERY CENTERSA, DNA, Nasalon 88-88-8928LADP, DNA, NasalPOSITIVE: MRSA DNA detected by nucleic acid amplification.AbnormalNEGSt. Francis HospitalComment on above:Result Comment: Results should be used as an adjunct to nosocomial control efforts to identify patients needing enhanced precautions. The test is not intended to identify patients with staphylococcal infections. Results should not be used to guide or monitor treatment for MRSA infections. Performed By: #### PLT #### [employer] [address] [place] [address] 91455 Paper Sales Manager: LISA Pereyrapecronda Description.NASAL SWABNormalSt. Francis HospitalComment on above:Performed By: #### PLT #### [facility] [employer] [address] [place] [address] 06890 Paper Sales Manager: Dori Pereyra Informationon 00-87-4472Zqlppcsiehkpks and review of laboratory resultsAbnormUVA Health University Hospital Glucose Fingerstickon 90-41-9285Wsasjot [Mass/Vol]195 mg/dLHigh 75 - 110 mg/dLBON [facility] HOSPITALInterpretation and review of laboratory resultsAbnormalCHILDREN'S HOSPITAL OF RICHMOND AT VCUGlucose [Mass/Vol]129 mg/dSEhyk18 - 110 mg/dLBON [facility] HOSPITALInterpretation and review of laboratory resultsAbnormalCHILDREN'S HOSPITAL OF RICHMOND AT VCUGlucose [Mass/Vol]126 mg/aLXscj70 - 110 mg/dLBON [facility] Interpretation and review of laboratory resultsAbnormCJW Medical CenterGlucose [Mass/Vol]134 mg/xXAvua04 - 110 mg/dLBON [facility]OSPITALInterpretation and review of laboratory resultsAbnormCarilion Stonewall Jackson HospitalPOCT Glucoseon 14-34-8754Pkztptd [Mass/Vol] 144 mg/iJCojx50 - 100 mg/dLBON [facility] HOSPITALUrinalysis, Routineon 78-24-0746Bvregkbho, SemiQt,UrNegativeClarkNEGSt. Francis Hospital Comment on above:Performed By: #### PT, GLYHGB, CDP #### [employer] [address] [place] [address] [phone] Paper Sales Manager: Claudio Pereyra, UrineNegativeNormalNEGSt. Francis HospitalComment on above:Performed By: #### PT, GLYHGB, CDP #### [facility] [address] [place] [address] [phone] Paper Sales Manager: Eris Pereyra (U)ClearNormalCLEARSt. Francis HospitalComment on above:Performed By: #### PT, GLYHGB, CDP #### [facility] [employer] [address] [place] [address] [phone] Paper Sales Manager: MELLY Pereyraolor (U)YellowNormalYELMercy David Grant Usaf Medical CenterComment on above:Performed By: #### PT, GLYHGB, CDP #### [facility] [address] [place] [address] 61247 Paper Sales Manager: Vincent Sy MDGlucose Ql (U)3+AbnormalNEGMerKaiser Foundation HospitalComment on above:Performed By: #### PT, GLYHGB, CDP #### [facility] [address] [place] [address] 57145 Paper Sales Manager: Vincent Sy MDKetones Ql (U)NegativeNormalNEGMerKaiser Foundation HospitalComment on above:Performed By: #### PT, GLYHGB, CDP #### [facility] [address] [place] [address] 13385 Paper Sales Manager: Vincent Sy MDLeukocyte esterase Test strip Ql (U)Negative NormalNEGMerKaiser Foundation HospitalComment on above:Performed By: #### PT, GLYHGB, CDP #### [facility] [address] [place] [address] 27791 Paper Sales Manager: Vincent Sy MDNitrite,UrNegativeNormalNEGMerKaiser Foundation HospitalComment on above:Performed By: #### PT, GLYHGB, CDP #### [facility] [address] [place] [address] 75830 Paper Sales Manager: DOLLY Pereyra,Ur5.0Qgnarj0.0-8.0[facility] Usaf Medical CenterComment on above:Performed By: #### PT, GLYHGB, CDP #### [facility] [address] [place] [address] 77897 Paper Sales Manager: DOLLY Pereyrarotein Ql (U)3+AbnormalNEGMerKaiser Foundation HospitalComment on above:Performed By: #### PT, GLYHGB, CDP #### [facility] [address] [place] [address] 22036 Paper Sales Manager: LISA Pereyrapec. [place],Ur1.834Iokuvp0.005-1.030MerKaiser Foundation HospitalComment on above:Performed By: #### PT, GLYHGB, CDP #### [facility] [address] [place] [address] 40294 Paper Sales Manager: Vincent Sy MDUrobilinogen,UrNormalNormalNORMSt. Francis HospitalComment on above:Performed By: #### PT, GLYHGB, CDP #### [facility] [address] [place] [address] 17962 Paper Sales Manager: Vincent Sy MDUrinalysis,Microon 45-61-9720Xqgqn8 TO 5 HYALINE Normal0-8MerKaiser Foundation HospitalComment on above:Result Comment: Reference range defined for non-centrifuged specimen.Performed By: #### PT, GLYHGB, CDP #### [facility] [address] [place] [address] 81980 Paper Sales Manager: Vincent Sy MDEpithelial cells LM Ql (Urine sed)0 TO 2Normal 0-5MerKaiser Foundation HospitalComment on above:Performed By: #### PT, GLYHGB, CDP #### [facility] [address] [place] [address] 09733 Paper Sales Manager: Vincent Sy MDUrine RBC's0 TO 6Umkanj2-1XrwbyKaiser Foundation HospitalComment on above:Result Comment: Reference range defined for non- centrifuged specimen.Performed By: #### PT, GLYHGB, CDP #### [facility] [address] [place] [address] 71150 Paper Sales Manager: Vincent Sy MDUrine WBC's0 TO 2Cqrxge6-8Zdzgy [facility] Grant Usaf Medical CenterComment on above:Performed By: #### PT, GLYHGB, CDP #### [facility] [address] [place] [address] 70511 Paper Sales Manager: Carlos Enrique Pereyra Cultureon 55-39-9171Wqpgkkkrxftem identified Cx Nom (Unsp spec)NO SIGNIFICANT GROWTHBON [facility] Specimen Description.URINEBON SECMARSHFIELD MEDICAL CENTER - LADYSMITH RUSK COUNTYAPTTon 50-34-6454qWAW Coag (Bld) [Time]50.6 sHigh23.0-36.5[facility] Grant Usaf Medical CenterComment on above:Result Comment: NOTE: NEW REFERENCE RANGEPerformed By: #### PLT #### [facility] [address] [place], [place] [phone] Paper Sales Manager: Vincent Sy MDaPTJeet Coag (Bld) [Time]50.6 sHighBON [facility] HOSPITALInterpretation and review of laboratory resultsAbnormalBON [facility] HOSPITALCBC auto differentialon 61-84-6821Isztvbhm Eos #0.09BON [facility] HOSPITALAbsolute Immature Granulocyte0.07BON [facility]ITALAbsolute Lymph #3.44[facility]OS[facility]ITALAbsolute Menard #0.96BON SEC[facility] CHARLES HOSPITALBasophils (Bld) [#/Vol]0.04 10*3/uLBON [facility] Basophils/100 WBC (Bld)0 %0 - 2 %BON SECMERCY [facility] ST[facility] CHARLES HOSPITALEosinophils/100 WBC (Bld)1 %1 - 4 %BON [facility] HOSPITALHematocrit (Bld) [Volume fraction]41.2 % 40.7 - 50.3 %BON [facility] HOSPITALHemoglobin (Bld) [Mass/Vol]13.9 g/dL13.0 - 17.0 g/dLBON SECMERCY HEALTH ST. CHARLES HOSPITALImmature granulocytes/100 WBC (Bld)1 %Zqlx0MUN [facility]OS[facility]ITALInterpretation and review of laboratory resultsAbnormalBON [facility] HOSPITALLymphocytes/100 WBC (Bld)35 %24 - 43 %BON [facility] HOSPITALH (RBC) [Entitic mass]29.8 pg25.2 - 33.5 pgBON [facility] SHELBY HOSPITALHC (RBC) [Mass/Vol]33.7 g/dL28.4 - 34.8 g/dLBON SECMERCY HEALTH ST. CHARLES HOSPITALMCV (RBC) [Entitic vol]88.2 fL82.6 - 102.9 fLCARILION ROANOKE COMMUNITY HOSPITALMonocytes/100 WBC (Bld)10 %3 - 12 %BON [facility] HOSPITALNRBC Automated0.00.0 per 100 WBCBON [facility] HOSPITALPlatelet distribution width (Bld) [Ratio]13.2 %11.8 - 14.4 % BON SECSUMMIT PACIFIC MEDICAL CENTERY HEALTHPlatelet mean volume (Bld) [Entitic vol]10.6 fL8.1 - 13.5 fLBON [facility] HEALTHPlatelets (Bld) [#/Vol]236 10*3/uLBON [facility] HEALTHRBC (Bld) [#/Vol]4.67 10*6/uL4.21 - 5.77 m/uLBON [facility] METHODIST HOSPITALSeg Kunyfyyaoow32 %36 - 65 %BON [facility] HOSPITALSegs Absolute5.25BON [facility] HEALTHWBC (Bld) [#/Vol]9.9 10*3/uLBON SECOURS SHELTER[facility] AR[facility] HOSPITALBON SECMERCY [facility] ST[facility] CHARLES HOSPITALCBC with Diffon 24-18-4859Nsb. Basophil0.04 k/uLNormal 0.00-0.20St. [facility] HospitalComment on above:Performed By: #### BRITTANEY BROWN, CDP #### [employer] [address] [place], [place] [phone] Paper Sales Manager: Frankie Pereyra.Imm.Granulocyte0.07 k/uLNormal0.00-0.30St. [facility] HospitalComment on above:Performed By: #### BRITTANEY BROWN, CDP #### [employer] [facility] [place] [address] Paper Sales Manager: Frankie Pereyra.Neutrophil (Seg)5.25 k/uLNormal1.50-8.10 [facility] HospitalComment on above:Performed By: #### BRITTANEY BROWN, CDP #### [facility] [address] [place] [address] 80717 Paper Sales Manager: Vincent Sy MDBasophils/100 WBC (Bld)0 %Normal0-2MSanta Ana Hospital Medical CenterComment on above:Performed By: #### PT, GLYHGB, CDP #### [facility] [address] [place] [address] 76539 Paper Sales Manager: Vincent Sy MDEosinophils (Bld) [#/Vol]0.09 10*3/uLNormal 0.00-0.44St. [facility] HospitalComment on above:Performed By: #### PT, GLYHGB, CDP #### [facility] [address] [place] [address] 70612 Paper Sales Manager: Vincent Sy MDEosinophils/100 WBC (Bld)1 %Normal1-4St. [facility] HospitalComment on above:Performed By: #### PT, GLYHGB, CDP #### [facility] [address] [place] [address] 78381 Paper Sales Manager: Vincent Sy MDErythrocyte distribution width (RBC) [Ratio]13.2 %Xucbdg88.8-14.4St. [facility] HospitalComment on above:Performed By: #### PT, GLYHGB, CDP #### [facility] [address] [place] [address] 08659 Paper Sales Manager: Vincent Sy MDHematocrit (Bld) [Volume fraction]41.2 %Normal 40.7-50.3MSanta Ana Hospital Medical CenterComment on above:Performed By: #### PT, GLYHGB, CDP #### [facility] [address] [place] [address] 86945 Paper Sales Manager: Vincent Sy MDHemoglobin (Bld) [Mass/Vol]13.9 g/dLNormal 13.0-17.0St. [facility] HospitalComment on above:Performed By: #### PT, GLYHGB, CDP #### [facility] [address] [place] [address] 21124 Paper Sales Manager: Kali Pereyrature granulocytes/100 WBC (Bld)1 %Ynmm1CbqqtSt. Francis HospitalComment on above:Performed By: #### PT, GLYHGB, CDP #### [facility] [address] [place] [address] 23185 Paper Sales Manager: Linda Pereyramphocytes (Bld) [#/Vol]3.44 10*3/uLNormal 1.10-3.70St. [facility] HospitalComment on above:Performed By: #### PT, GLYHGB, CDP #### [facility] [employer] [address] [place] [address] 48594 Paper Sales Manager: Linda Pereyramphocytes/100 WBC (Bld)35 %Nudnmc73-11JldttSt. Francis HospitalComment on above:Performed By: #### PT, GLYHGB, CDP #### [address] [address] Paper Sales Manager: JODEE PereyraCH (RBC) [Entitic mass]29.[address] qeAvqgok33.2-33.5 [facility] HospitalComment on above:Performed By: #### PT, GLYHGB, CDP #### [address] [address] Paper Sales Manager: JODEE PereyraCHC (RBC) [Mass/Vol]33.7 g/uTJkwrot59.4-34.8 [facility] HospitalComment on above:Performed By: #### PT, GLYHGB, CDP #### [facility] [address] [place] [address] 21433 Paper Sales Manager: JODEE PereyraCV (RBC) [Entitic vol]88.[address]dmxdg76.6-102.9 [address] [facility] HospitalComment on above:Performed By: #### PT, GLYHGB, CDP #### [address] [address] Paper Sales Manager: Vincent Sy MDMonocytes (Bld) [#/Vol]0.96 10*3/uLNormal 0.10-1.20St. [facility] HospitalComment on above:Performed By: #### PT, GLYHGB, CDP #### [facility] [employer] [address] [place] [address] 37429 Paper Sales Manager: JODEE Pereyraonocytes/100 WBC (Bld)10 %Normal3-12St. [facility] HospitalComment on above:Performed By: #### PT, GLYHGB, CDP #### [place] [address] Paper Sales Manager: Starr Pereyraophil (Seg)53 %Vibcmv84-28CoqbzSt. Francis HospitalComment on above:Performed By: #### PT, GLYHGB, CDP #### [place] [address] Paper Sales Manager: Vincent Sy MDNRBC Automated0.0 per [address] [facility] HospitalComment on above:Performed By: #### PT, GLYHGB, CDP #### [place] [address] Paper Sales Manager: DOLLY Pereyralatelet mean volume (Bld) [Entitic vol]10.6 fL Normal8.1-13.5St. [facility] HospitalComment on above:Performed By: #### PT, GLYHGB, CDP #### [facility] [employer] [address] [place] [address] 30604 Paper Sales Manager: Vincent Sy MDPlatelets (Bld) [#/Vol]236 10*3/uSAyzftg072-394 [facility] HospitalComment on above:Performed By: #### PT GLYHGB, CDP #### [facility]Care[facility] [address] [place] [address] Paper Sales Manager: MARSHA Pereyra ([facility]) [#/Vol]4.67 10*6/uLNormal4.21-5.77 [facility] HospitalComment on above:Performed By: #### PT, GLYHGB, CDP #### [facility] [address] [place] [address] Paper Sales Manager: DE Pereyra ([facility]) [#/Vol]9.9 10*3/uLNormal3.5-11.3Mlakehealth beachwood medical centery David Grant Usaf Medical CenterComment on above:Performed By: #### PT, GLYHGB, CDP #### [facility] [employer] [address] [place] [address] 89321 Paper Sales Manager: Hernesto Pereyraroscopic Urinalysison 62-02-8720Vopcz UA2 TO 5 HYALINE Reference range defined for non-centrifuged specimen.[facility] COMMUNITY HOSPITALEpithelial Cells UA0 TO 2BON [facility] clumps Auto (Urine sed) [#/Area]0 TO 2BON [facility] FOUNDATIONBC, UA0 TO 2BON [facility]ENTERPO Glucose Fingerstickon 30-62-3926Opkskvd [Mass/Vol] 270 mg/cAVaiw33 - 110 mg/dLBON [facility]OS[facility]ITALInterpretation and review of laboratory resultsAbnormCarilion Stonewall Jackson Hospital Glucose [Mass/Vol]276 mg/oTZrbv60 - 110 mg/dLBON [facility] Interpretation and review of laboratory resultsAbnormCJW Medical CenterGlucose [Mass/Vol]182 mg/aNCaay25 - 110 mg/dLBON [facility]OS[facility]ITALInterpretation and review of laboratory resultsAbnormalCHILDREN'S HOSPITAL [facility] AT VCUGlucose [Mass/Vol]158 mg/cCKxkk53 - 110 mg/dLBON [facility]OS[facility]ITALInterpretation and review of laboratory results AbnormalBON REGIONAL HEALTH RAPID CITY HOSPITALPTon 50-99-5775FBG Coag (PPP) [Relative time]1.0 {INR}NormalSt. Francis HospitalComment on above:Result Comment: Therapeutic Range: Moderate Anticoagulant Intensity: INR = 2.0-3.0 High Anticoagulant Intensity: INR = 2.5-3.5Performed By: #### PT, GLYHGB, CDP #### [employer] [address] [place] [address] 89224 Paper Sales Manager: LALO Pereyra Coag (PPP) [Time]13.3 jAgxntw59.7-14.9St. [facility] HospitalComment on above:Result Comment: NOTE: NEW REFERENCE RANGEPerformed By: #### PT, GLYHGB, CDP #### [employer] [address] [place] [address] [phone] Paper Sales Manager: Jeffrey Pereyra Counton 74-50-4639Puymxkhjb (Bld) [#/Vol]228 10*3/fFGkvyxw784-309VhhxnSt. Francis HospitalComment on above: Performed By: #### BMP, MG, CBC, PT, PTT #### [employer] [address] [place] [address] [phone] Paper Sales Manager: Thu Pereyra (Bld) [#/Vol]228 10*3/uLBON REG[facility]ALTH RAP[facility] CITY HOSPITALProtime-INRon 10-25-7140IGO Coag (PPP) [Relative time]1.0 {INR}BON [facility] HOSPITALPT Coag (PPP) [Time]13.3 sBON [facility]AP[facility] CITY HOSPITALUrinalysison 65-14-8487Afjznmmzi UrineNegativeNEGATIVECARILION ROANOKE COMMUNITY HOSPITALColor, UAYellowYellowCARILION ROANOKE COMMUNITY HOSPITALGlucose Auto test strip (U) [Mass/Vol]3+AbnormalNEGATIVECARILION ROANOKE COMMUNITY HOSPITALInterpretation and review of laboratory resultsAbnormalBON SECMARIA ELENA WHITE [facility]PITAL HEALTHKetones (U) [Mass/Vol]NegativeNEGATIVEBON SECMERCY [facility] ST[facility] Leukocyte esterase Auto test strip Ql (U)NegativeNEGATIVEBON SECMARIA ELENA WHITE [facility]PITAL HEALTHNitrite Auto test strip Ql (U)NegativeNEGATIVEBON [facility] HEALTH Protein (U) [Mass/Vol]5.5 mg/dL5.0 - 8.0B[facility] HEALTHProtein (U) [Mass/Vol]3+AbnormalNEGATIVEBON [facility] HEALTHSpecific [place], UA1.019 1.005 - 1.030BON SECMARIA [facility]NA [facility] HEALTHTurbidity UAClearClearBON SECSA[facility] HEALTHUrine HgbNegativeNEGATIVEBON [facility] HOSPITALUrobilinogen, UrineNormal NormalBON SECMARSHFIELD MEDICAL CENTER - LADYSMITH RUSK COUNTYAPTTon 69-41-5426kIIU Coag (Bld) [Time]58.3 sHigh23.0-36.5St. Francis HospitalComment on above:Result Comment: NOTE: NEW REFERENCE RANGEPerformed By: #### BMP, MG, CBC, PT, PTT #### [employer] [address] [place] [address] Paper Sales Manager: Courtney Pereyra Coag (Bld) [Time]58.3 [facility] VCUInterpretation and review of laboratory resultsAbnormalBON REG[facility] CITY HOSPITALBasic Metab w/rfx MGon 98-24-3708Yqfxc gap [Moles/Vol]9 mmol/LNormal9-17St. [facility] HospitalComment on above: Performed By: #### BMP, MG, CBC, PT, PTT #### [employer] [address] [place] [address] 17246 Paper Sales Manager: MELLY Pereyraalcium [Mass/Vol]10.6 mg/dLHigh8.6-10.4St. [facility] HospitalComment on above:Performed By: #### BMP, MG, CBC, PT, PTT #### [employer] [address] [place] [address] 66657 Paper Sales Manager: MELLY Pereyrahloride [Moles/Vol]107 mmol/XTlcfay91-893EljfmSt. Francis HospitalComment on above:Performed By: #### BMP, MG, CBC, PT, PTT #### [facility] [employer] [facility] [place] [address] Paper Sales Manager: Vincent Sy MDCO2 [Moles/Vol]21 mmol/FZnnsrv85-23KftpoSt. Francis HospitalComment on above:Performed By: #### BMP, MG, CBC, PT, PTT #### [facility] [employer] [address] [place] [address] 90098 Paper Sales Manager: MELLY Pereyrareatinine [Mass/Vol]1.47 mg/dLHigh0.70-1.20 [facility] HospitalComment on above:Performed By: #### BMP, MG, CBC, PT, PTT #### [facility] [address] [place] [address] Paper Sales Manager: Vincent Sy MDGFR/1.73 sq M.predicted among non-blacks MDRD (S/P/Bld) [Vol rate/Area]mL/min/{1.73_m2}Normal>60St. Francis HospitalComment on above:Result Comment: These results are [...] #### BMP, MG, CBC, PT, PTT #### [facility] [address] [place] [address] Paper Sales Manager: Vincent Sy MDGlucose [Mass/Vol]184 mg/wAQylc09-88NdddaSanta Ana Hospital Medical CenterComment on above:Performed By: #### BMP, MG, CBC, PT, PTT #### [facility] [address] [place] [address] Paper Sales Manager: DOLLY Pereyraotassium [Moles/Vol]4.9 mmol/LNormal3.7-5.3 [facility] HospitalComment on above:Performed By: #### BMP, MG, CBC, PT, PTT #### [facility] [address] [place] [address]86[address] Paper Sales Manager: LISA Pereyraodium [Moles/Vol]137 mmol/DEukeee805-348ZfhmtSt. Francis HospitalComment on above:Performed By: #### BMP, MG, CBC, PT, PTT #### [facility] [address] [place] [address] 76523 Paper Sales Manager: Vincent Sy MDUrea nitrogen [Mass/Vol]15 mg/dLNormal6-20St. Francis HospitalComment on above:Performed By: #### BMP, MG, CBC, PT, PTT #### [facility] [address] [place] [address] 36395 Paper Sales Manager: Vincent Sy MDBahealthsouth northern kentucky rehabilitation hospital Metabolic Panel w/ Reflex to MGon 08-48-8098Gvcat gap [Moles/Vol]9 mmol/L9 - 17 mmol/LBON SECCurexo Technology Calcium [Mass/Vol]10.6 mg/dLHigh8.6 - 10.4 mg/dLBON SECOURS ITmedia KK HEALTHChloride [Moles/Vol]107 mmol/L98 - 107 mmol/LBON SECOURS Global ActiveY HEALTHCO2 [Moles/Vol]21 mmol/L20 - 31 mmol/LBON SECOURS LabourNetCreatinine [Mass/Vol]1.47 mg/dLHigh 0.70 - 1.20 mg/dLBON SECOURS Global ActiveY SchedulicityGFR/1.73 sq M.predicted MDRD (S/P/Bld) [Vol rate/Area]- PINFBON SECCurexo TechnologyGlucose [Mass/Vol]184 mg/xDUhju22 - 99 mg/dLBON SECCurexo TechnologyInterpretation and review of laboratory results AbnormalBON [facility] HOSPITALPotassium [Moles/Vol]4.9 mmol/L3.7 - 5.3 mmol/L BON [facility] HOSPITALSodium [Moles/Vol]137 mmol/L135 - 144 mmol/LBON [facility] HOSPITALUrea nitrogen [Mass/Vol]15 mg/dL6 - 20 mg/dLBON [facility] BON [facility] HOSPITALPOC Glucose Fingerstickon 11-08-3256Htzpmum [Mass/Vol] 210 mg/qUCsaz18 - 110 mg/dLBON [facility] HOSPITALInterpretation and review of laboratory resultsAbnormalCH[facility] Glucose [Mass/Vol]303 mg/tOLyky33 - 110 mg/dLBON [facility] Interpretation and review of laboratory resultsAbnormalCARILION ROANOKE [facility] BON [facility] HOSPITALGlucose [Mass/Vol]235 mg/yXZedb11 - 110 mg/dLBON [facility]OSPITALInterpretation and review of laboratory resultsAbnormalCHILDREN'S [facility] VCUGlucose [Mass/Vol]172 mg/uCCqpe51 - 110 mg/dLBON [facility]ITALInterpretation and review of laboratory results AbnormalBON [facility] [id number] Coag (Bld) [Time]54.7 sHigh23.0-36.5St. Francis HospitalComment on above:Result Comment: NOTE: NEW REFERENCE RANGEPerformed By: #### BMP, MG, CBC, PT, PTT #### [employer] [address] [place] [address] [phone] Paper Sales Manager: Vincent Sy MDaPTT Coag (Bld) [Time]54.7 sHighBON [facility] HOSPITALInterpretation and review of laboratory resultsAbnormalCHILDREN'S H[facility] VCUaPTT Coag (Bld) [Time]60.3 sHigh23.0-36.5 [facility] Francis HospitalComment on above:Result Comment: NOTE: NEW REFERENCE RANGEPerformed By: #### PLT #### [employer] [address] [place] [address] 36063 Paper Sales Manager: Vincent Sy MDaPTT Coag (Bld) [Time]60.3 sHighBON [facility] HOSPITALInterpretation and review of laboratory resultsAbnormalBON REG[facility] CITY HOSPITALaPTT Coag (Bld) [Time]45.5 sHigh23.0-36.5 [facility] HospitalComment on above:Result Comment: NOTE: NEW REFERENCE RANGEPerformed By: #### PT, GLYHGB, CDP #### [address] [address] Paper Sales Manager: Tim Pereyra Metab w/rfx MGon 00-00-3543Rzhdw gap [Moles/Vol]10 mmol/LNormal9-17St. Francis HospitalComment on above: Performed By: #### PLT #### [facility] [employer] [address] [place] [address] 60407 Paper Sales Manager: Vincent Sy MDCalcium [Mass/Vol]10.0 mg/dLNormal8.6-10.4St. Francis HospitalComment on above:Performed By: #### PLT #### [facility] [employer] [address] [place] [address] 90153 Paper Sales Manager: Vincent Sy MDChloride [Moles/Vol]107 mmol/JJhtevb07-578IejfbSt. Francis HospitalComment on above:Performed By: #### PLT #### [facility] [employer] [address] [place] [address] 41212 Paper Sales Manager: Vincent Sy MDCO2 [Moles/Vol]19 mmol/KTcq52-04OpklfSt. Francis HospitalComment on above:Performed By: #### PLT #### [facility] [employer] [address] [place] [address] 27346 Paper Sales Manager: MELLY Pereyrareatinine [Mass/Vol]1.41 mg/dLHigh0.70-1.20 [facility] Francis HospitalComment on above:Performed By: #### PLT #### [place] [address] Paper Sales Manager: Vincent Sy MDGFR/1.73 sq M.predicted among non-blacks MDRD (S/P/Bld) [Vol rate/Area]mL/min/{1.73_m2}Normal>60St. Francis HospitalComment on above:Result Comment: These results are [...] renal tubular secretion.Performed By: #### PLT #### [place] [address] Paper Sales Manager: Vincent Sy MDGlucose [Mass/Vol]163 mg/oUBgbb62-55XgzrySanta Ana Hospital Medical CenterComment on above:Performed By: #### PLT #### [place] [address] Paper Sales Manager: Vincent Sy MDPotassium [Moles/Vol]4.4 mmol/LNormal3.7-5.3 St[facility] Francis HospitalComment on above:Performed By: #### PLT #### [facility] [employer] [address] [place] [address] Paper Sales Manager: Vincent Sy MDSodium [Moles/Vol]136 mmol/GJfntcz774-217KzssmSt. Francis HospitalComment on above:Performed By: #### PLT #### [place] [address] Paper Sales Manager: Vincent Sy MDUrea nitrogen [Mass/Vol]16 mg/dLNormal6-20St. Francis HospitalComment on above:Performed By: #### PLT #### [facility] [address] [phone] Paper Sales Manager: Vincent Sy MDYale [facility] Metabolic Panel w/ Reflex to MGon 67-22-1820Beuna gap [Moles/Vol]10 mmol/L9 - 17 mmol/LBON [facility] Calcium [Mass/Vol]10.0 mg/dL8.6 - 10.4 mg/dLBON SECSAVOY [facility] HEALTHChloride [Moles/Vol]107 mmol/L98 - 107 mmol/LBON [facility]SAVO[facility] HEALTHCO2 [Moles/Vol]19 mmol/LLow20 - 31 mmol/LBON [facility] HOSPITALCreatinine [Mass/Vol]1.41 mg/dL High0.70 - 1.20 mg/dLBON [facility] HOSPITALGFR/1.73 sq M.predicted MDRD (S/P/Bld) [Vol rate/Area]- PINFBON [facility] HOSPITALGlucose [Mass/Vol]163 mg/fXRhjp51 - 99 mg/dLBON [facility] HOSPITALInterpretation and review of laboratory resultsAbnormalCARILION ROANOKE COMMUNITY HOSPITALPotassium [Moles/Vol]4.4 mmol/L3.7 - 5.3 mmol/LBON [facility] HOSPITALSodium [Moles/Vol]136 mmol/L135 - 144 mmol/LBON [facility] HOSPITALUrea nitrogen [Mass/Vol]16 mg/dL6 - 20 mg/dL BON [facility] HOSPITALPO Glucose Fingerstickon 63-96-0316Bdqtakw [Mass/Vol]212 mg/kWPxfm98 - 110 mg/dLBON [facility] HEALTH Interpretation and review of laboratory resultsAbnormalSMYTH COUNTY COMMUNITY [facility]ITAL HEALTH BON [facility] HEALTHGlucose [Mass/Vol]254 mg/eNUake26 - 110 mg/dLBON [facility] HEALTHInterpretation and review of laboratory resultsAbnormalBON [facility] HEALTHGlucose [Mass/Vol]231 mg/tUXarg55 - 110 mg/dLBON [facility] HEALTHInterpretation and review of laboratory results AbnormalB[facility] 2001Glucose [Mass/Vol]163 mg/hJWbxr93 - 110 mg/dLBON [facility] HEALTHInterpretation and review of laboratory resultsAbnormalCH[facility] Platelet Counton 21-75-8759Jtbrvlvui (Bld) [#/Vol]201 10*3/cYEaeqhc693-987DlkcdSt. Francis HospitalComment on above:Performed By: #### PLT #### [employer] [address] [place], [place] [phone] Paper Sales Manager: DOLLY Pereyralatelets (Bld) [#/Vol]201 10*3/uLWELLMONT HEALTH SYSTEMTon 58-09-4154gNJC Coag (Bld) [Time]45.5 sHighBON [facility] HOSPITALInterpretation and review of laboratory results AbnormalCHILDREN'S HOSP[facility] VCUaPTT Coag (Bld) [Time] 53.5 sHigh23.0-36.5St. Francis HospitalComment on above:Result Comment: NOTE: NEW REFERENCE RANGEPerformed By: #### PT, GLYHGB, CDP #### [employer] [address] [place] [address] Paper Sales Manager: Vincent Sy MDaPTJeet Coag (Bld) [Time]53.5 sHighBON [facility] HOSPITALInterpretation and review of laboratory resultsAbnormCarilion Stonewall Jackson HospitalaPTT Coag (Bld) [Time]102.9 sCritically high 23.0-36.5St. Francis HospitalComment on above:Result Comment: NOTE: NEW REFERENCE RANGEPerformed By: #### BMP, MG, CBC, PT, PTT #### [employer] [address] [place], [place] [phone] Paper Sales Manager: Vincent Sy MDaPTT Coag (Bld) [Time]102.9 sCritically highCARILION ROANOKE COMMUNITY HOSPITALInterpretation and review of laboratory resultsAbnormalCHILDREN'S [facility] VCUaPTT Coag (Bld) [Time]40.0 sHigh 23.0-36.5St. Francis HospitalComment on above:Result Comment: NOTE: NEW REFERENCE RANGEPerformed By: #### BMP, MG, CBC, PT, PTT #### [facility] [employer] [address] [place] [address] 89907 Paper Sales Manager: Tim Pereyra Metab w/rfx MGon 47-77-7122Jeclx gap [Moles/Vol]8 mmol/LLow9-17St. Francis HospitalComment on above: Performed By: #### BMP, MG, CBC, PT, PTT #### [place] [address] Paper Sales Manager: Vincent Sy MDCalcium [Mass/Vol]9.5 mg/dLNormal8.6-10.4St. Francis HospitalComment on above:Performed By: #### BMP, MG, CBC, PT, PTT #### [facility] [employer] [address] [place] [address] Paper Sales Manager: MELLY Pereyrahloride [Moles/Vol]108 mmol/XGtod33-109RaumsSt. Francis HospitalComment on above:Performed By: #### BMP, MG, CBC, PT, PTT #### [facility] [employer] [address] [place] [address] 27669 Paper Sales Manager: Vincent yS MDCO2 [Moles/Vol]21 mmol/GUiuxad32-10MlwtoSt. Francis HospitalComment on above:Performed By: #### BMP, MG, CBC, PT, PTT #### [facility] [employer] [address] [place] [address] 35304 Paper Sales Manager: Vincent Sy MDCreatinine [Mass/Vol]1.56 mg/dLHigh0.70-1.20 [facility] [facility] HospitalComment on above:Performed By: #### BMP, MG, CBC, PT, PTT #### [facility] [employer] [address] [place] [address] 90329 Paper Sales Manager: Vincent Sy MDGFR/1.73 sq M.predicted among non-blacks MDRD (S/P/Bld) [Vol rate/Area]58 mL/min/{1.73_m2}Low>60St. Francis HospitalComment on above:Result Comment: These results are [...] #### BMP, MG, CBC, PT, PTT #### [facility] [employer] [address] [place] [address] 68991 Paper Sales Manager: Vincent Sy MDGlucose [Mass/Vol]209 mg/fQEmbf84-77MjiltSanta Ana Hospital Medical CenterComment on above:Performed By: #### BMP, MG, CBC, PT, PTT #### [facility] [employer] [address] [place] [address] 38270 Paper Sales Manager: Vincent Sy MDPotassium [Moles/Vol]4.3 mmol/LNormal3.7-5.3 [facility] Francis HospitalComment on above:Performed By: #### BMP, MG, CBC, PT, PTT #### [facility]CareLin[facility] [address] [place] [address] 51756 Paper Sales Manager: Vincent Sy MDSodium [Moles/Vol]137 mmol/CEeifdf379-019NcxauSt. Francis HospitalComment on above:Performed By: #### BMP, MG, CBC, PT, PTT #### [facility] [employer] [address] [place] [address] 42361 Paper Sales Manager: Vincent Sy MDUrea nitrogen [Mass/Vol]19 mg/dLNormal6-20St. Francis HospitalComment on above:Performed By: #### BMP, MG, CBC, PT, PTT #### [employer] [address] [place], [place] [address] Paper Sales Manager: Tim Pereyra Metabolic Panel w/ Reflex to MGon 51-65-3273Jnjxm gap [Moles/Vol]8 mmol/LLow9 - 17 mmol/LBON [facility] Calcium [Mass/Vol]9.5 mg/dL8.6 - 10.4 mg/dLBON [facility] HOSPITALChloride [Moles/Vol]108 mmol/LHigh98 - 107 mmol/LBON [facility] HOSPITALCO2 [Moles/Vol] 21 mmol/L20 - 31 mmol/LBON [facility] HOSPITALCreatinine [Mass/Vol]1.56 mg/dL High0.70 - 1.20 mg/dLBON [facility] HOSPITALGFR/1.73 sq M.predicted MDRD (S/P/Bld) [Vol rate/Area]58 mL/min/{1.73_m2}Low- PINFBON [facility] Glucose [Mass/Vol]209 mg/vJGibn26 - 99 mg/dLBON [facility] Interpretation and review of laboratory resultsAbnormalCARILION [facility] Potassium [Moles/Vol]4.3 mmol/L3.7 - 5.3 mmol/LBON [facility] HOSPITALSodium [Moles/Vol]137 mmol/L135 - 144 mmol/LBON [facility] METHOD[facility] HOSPITALUrea nitrogen [Mass/Vol]19 mg/dL6 - 20 mg/dLBON [facility] HOSPITALBON [facility] Calcium, [employer]icon 59-83-9474Zcharcn [Moles/Vol]1.40 mmol/LHigh1.13-1.33St. Francis HospitalComment on above:Performed By: #### BMP, MG, CBC, PT, PTT #### [employer] [address] [place], [place] [phone] Paper Sales Manager: Roscoe Pereyraium, Ionizedon 56-67-8101Chuwwms.ionized (Bld) [Moles/Vol]1.4 mmol/LHigh1.13 - 1.33 mmol/LBON [facility] Interpretation and review of laboratory resultsAbnormCJW Medical CenterPOC Glucose Fingerstickon 96-58-6686Ymjnukj [Mass/Vol] 276 mg/zJEfyh87 - 110 mg/dLBON [facility]OSPITALInterpretation and review of laboratory resultsAbnormalCH[facility] Glucose [Mass/Vol]215 mg/uWVyqn82 - 110 mg/dLBON [facility] Interpretation and review of laboratory resultsAbnormCJW Medical CenterGlucose [Mass/Vol]208 mg/tYLgmk30 - 110 mg/dLBON [facility]OSPITALInterpretation and review of laboratory resultsAbnormCarilion Stonewall Jackson HospitalGlucose [Mass/Vol]192 mg/nGHlus03 - 110 mg/dLBON [facility] HOSPITALInterpretation and review of laboratory results AbnormalBON REGIONAL [facility]ALTH RAP[facility] CITY HOSPITALVL DUP CAROTID BILATERAL on 69-43-4592EQYJ [facility] Work Phone: vl DUP CAROTID BILATERALOrdered By: Sony Toro on 92-58-9489JEP [facility] Work Phone: vl DUP UPPER EXTREMITY ARTERIES BILATERALon 05-27-[address] [facility] Work Phone: bon [facility] Work Phone: vl VEIN MAPPING LOWER BILATERALon [phone] [facility] Work Phone: bon [facility] Work Phone: aPTTon [phone] Coag (Bld) [Time]40.0 sHighBON [facility] HOSPITALInterpretation and review of laboratory resultsAbnoMilbank Area Hospital / Avera HealthaPTT Coag (Bld) [Time]52.9 sHigh 23.0-36.5St. Francis HospitalComment on above:Result Comment: NOTE: NEW REFERENCE RANGEPerformed By: #### PTT #### [facility] HospitalEth[facility] [address] [place] [address] 09000 Paper Sales Manager: Vincent Sy MDaPTT Coag (Bld) [Time]52.9 [facility] VCUInterpretation and review of laboratory resultsAbnoMilbank Area Hospital / Avera HealthaPTT Coag (Bld) [Time]62.9 sHigh23.0-36.5 [facility] HospitalComment on above:Result Comment: NOTE: NEW REFERENCE RANGEPerformed By: #### PT, GLYHGB, CDP #### [facility]Eth[facility] [address] [place] [address] 04254 Paper Sales Manager: Vincent Sy MDaPTT Coag (Bld) [Time]62.9 [facility] VCUInterpretation and review of laboratory resultsAbnoMilbank Area Hospital / Avera HealthBasic Metab w/rfx MGon 12-93-9073Mkviq gap [Moles/Vol]9 mmol/LNormal9-17St. Francis HospitalComment on above: Performed By: #### PT, GLYHGB, CDP #### [facility] [address] [place], [place] [phone] Paper Sales Manager: MELLY Pereyraalcium [Mass/Vol]9.4 mg/dLNormal8.6-10.4St. Francis HospitalComment on above:Performed By: #### PT, GLYHGB, CDP #### [facility] [address] [place] [address] [phone] Paper Sales Manager: Vincent Sy MDChloride [Moles/Vol]109 mmol/KNnjb70-669KyiaySt. Francis HospitalComment on above:Performed By: #### PT, GLYHGB, CDP #### [facility] [address] [place], [place] [phone] Paper Sales Manager: Vincent Sy MDCO2 [Moles/Vol]23 mmol/BSbevoa08-66QwgtqSt. Francis HospitalComment on above:Performed By: #### BRITTANEY BROWN, CDP #### [facility] [employer] [address] [place] [address]83 Paper Sales Manager: MELLY Pereyrareatinine [Mass/Vol]1.55 mg/dLHigh0.70-1.20 [facility] HospitalComment on above:Performed By: #### STEPHANIE GLYLEOBARDO, CDP #### [facility] [employer] [address] [place] [address] 81578 Paper Sales Manager: Vincent Sy MDGFR/1.73 sq M.predicted among non-blacks MDRD (S/P/Bld) [Vol rate/Area]59 mL/min/{1.73_m2}Low>60St. Francis HospitalComment on above:Result Comment: These results are [...] secretion.Performed By: #### BRITTANEY BROWN, CDP #### [facility]Eth[facility] [address] [place] [address] 69785 Paper Sales Manager: Vincent Sy MDGlucose [Mass/Vol]212 mg/aMAjdd38-48ZessqSanta Ana Hospital Medical CenterComment on above:Performed By: #### BRITTANEY BROWN, CDP #### [facility] [employer] [address] [place] [address] 88233 Paper Sales Manager: DOLLY Pereyraotassium [Moles/Vol]4.3 mmol/LNormal3.7-5.3 [facility] Francis HospitalComment on above:Performed By: #### PT, GLYHGB, CDP #### [facility] [address] [place] [address] Paper Sales Manager: LISA Pereyraodium [Moles/Vol]141 mmol/FTsvklo371-817LerkdSt. Francis HospitalComment on above:Performed By: #### PT, GLYHGB, CDP #### [facility] [address] [place], [place] [phone] Paper Sales Manager: Vincent Sy MDUrea nitrogen [Mass/Vol]18 mg/dLNormal6-20St. Francis HospitalComment on above:Performed By: #### PT, GLYHGB, CDP #### [facility] [address] [place], [place] [phone] Paper Sales Manager: Mike Pereyrasiabilio Metabolic Panel w/ Reflex to MGon 25-03-2079Lskyl gap [Moles/Vol]9 mmol/L9 - 17 mmol/LBON [employer]Ixtens HEALTH Calcium [Mass/Vol]9.4 mg/dL8.6 - 10.4 mg/dLBON SECGood Travel Software MERCANF Technology HEALTHChloride [Moles/Vol]109 mmol/LHigh98 - 107 mmol/LBON SECOURS [employer]media KK HEALTHCO2 [Moles/Vol] 23 mmol/L20 - 31 mmol/LBON SECOURS LabourNetCreatinine [Mass/Vol]1.55 mg/dL High0.70 - 1.20 mg/dLBON SECOURS Global ActiveY HEALTHGFR/1.73 sq M.predicted MDRD (S/P/Bld) [Vol rate/Area]59 mL/min/{1.73_m2}Low- PINFBON SECCurexo Technology Glucose [Mass/Vol]212 mg/vVNkhf80 - 99 mg/dLBON SECIxtens HEALTH Interpretation and review of laboratory resultsAbnormalBON SECOURS Global ActiveY HEALTH Potassium [Moles/Vol]4.3 mmol/L3.7 - 5.3 mmol/LBON SECOURS ITmedia KK HEALTHSodium [Moles/Vol]141 mmol/L135 - 144 mmol/LBON SECOU[facility] ITmedia KK HEALTHUrea nitrogen [Mass/Vol]18 mg/dL6 - 20 mg/dLBON [facility] Catheterization and angiography procedure details panelon 15-43-3554LSNC STV CPACSBON [facility] Work Phone: bon [facility] Work Phone: bon [facility] Work Phone: poc Glucose Fingerstickon 94-06-8287Tynrclt [Mass/Vol] 264 mg/iSWxay75 - 110 mg/dLBON [facility]OSPITALInterpretation and review of laboratory resultsAbnormCarilion Stonewall Jackson Hospital Glucose [Mass/Vol]165 mg/sLOmuj88 - 110 mg/dLBON [facility] Interpretation and review of laboratory resultsAbnormRetreat Doctors' Hospital BON [facility] HOSPITALGlucose [Mass/Vol]211 mg/jLAqzp53 - 110 mg/dLBON [facility]OSPITALInterpretation and review of laboratory resultsAbnormalCHILDREN'S [facility] VCUGlucose [Mass/Vol]200 mg/fSCtwy58 - 110 mg/dLBON [facility]OSPITALInterpretation and review of laboratory results AbnormalBON REGIONAL HEALTH RAPID CITY HOSPITALAPTBanner Boswell Medical Center 90-43-5876tHKP Coag (Bld) [Time]67.4 sHigh23.0-36.5St. Francis HospitalComment on above:Result Comment: NOTE: NEW REFERENCE RANGEPerformed By: #### BMP, MG, CBC, PT, PTT #### [employer] [address] [place] [address] Paper Sales Manager: Cuortney Pereyra Coag (Bld) [Time]67.4 sHighBON [facility]OSPITALInterpretation and review of laboratory resultsAbnoMilbank Area Hospital / Avera HealthBasic Metab w/rfx MGon 62-09-9543Vedzt gap [Moles/Vol]9 mmol/LNormal9-17St. Francis HospitalComment on above: Performed By: #### BMP, MG, CBC, PT, PTT #### [facility] [place] [address] Paper Sales Manager: MELLY Pereyraalcium [Mass/Vol]9.6 mg/dLNormal8.6-10.4St. Francis HospitalComment on above:Performed By: #### BMP, MG, CBC, PT, PTT #### [facility] [address] [place] [address] 29302 Paper Sales Manager: Vincent Sy MDChloride [Moles/Vol]102 mmol/GHzzugy39-340FpuxnSt. Francis HospitalComment on above:Performed By: #### BMP, MG, CBC, PT, PTT #### [facility] [address] [place] [address] 00123 Paper Sales Manager: Vincent Sy MDCO2 [Moles/Vol]23 mmol/LYyujvq18-26EqpicSt. Francis HospitalComment on above:Performed By: #### BMP, MG, CBC, PT, PTT #### [facility] [address] [place] [address] 38522 Paper Sales Manager: MELLY Pereyrareatinine [Mass/Vol]1.70 mg/dLHigh0.70-1.20 [facility] HospitalComment on above:Performed By: #### BMP, MG, CBC, PT, PTT #### [employer] [address] [place] [address] 58354 Paper Sales Manager: Vincent Sy MDGFR/1.73 sq M.predicted among non-blacks MDRD (S/P/Bld) [Vol rate/Area]53 mL/min/{1.73_m2}Low>60St. Francis HospitalComment on above:Result Comment: These results are [...] #### BMP, MG, CBC, PT, PTT #### [facility] HospitalCareLinx [facility] [address] [place] [address] Paper Sales Manager: Vincent Sy MDGlucose [Mass/Vol]287 mg/hLPnrc88-04WiquwSanta Ana Hospital Medical CenterComment on above:Performed By: #### BMP, MG, CBC, PT, PTT #### [facility] [employer] [address] [place] [address] Paper Sales Manager: DOLLY Pereyraotassium [Moles/Vol]3.9 mmol/LNormal3.7-5.3 [facility] HospitalComment on above:Performed By: #### BMP, MG, CBC, PT, PTT #### [facility]Eth[facility] [address] [place] [address] Paper Sales Manager: LISA Pereyraodium [Moles/Vol]134 mmol/LTcu702-991BdrwdSt. Francis HospitalComment on above:Performed By: #### BMP, MG, CBC, PT, PTT #### [facility] [address] [place] [address] Paper Sales Manager: Vincent Sy MDUrea nitrogen [Mass/Vol]25 mg/dLHigh6-20St. Francis HospitalComment on above:Performed By: #### BMP, MG, CBC, PT, PTT #### [facility] [employer] [address] [place] [address] Paper Sales Manager: Vincent Sy MDBahealthsouth northern kentucky rehabilitation hospital Metabolic Panel w/ Reflex to MGon 17-51-0088Edbge gap [Moles/Vol]9 mmol/L9 - 17 mmol/LBON [facility] Calcium [Mass/Vol]9.6 mg/dL8.6 - 10.4 mg/dLBON [facility] MERCY HEALTHChloride [Moles/Vol]102 mmol/L98 - 107 mmol/LBON [facility] HEALTHCO2 [Moles/Vol]23 mmol/L20 - 31 mmol/LBON [facility] HOSPITALCreatinine [Mass/Vol]1.7 mg/dLHigh 0.70 - 1.20 mg/dLBON [facility] HOSPITALGFR/1.73 sq M.predicted MDRD (S/P/Bld) [Vol rate/Area]53 mL/min/{1.73_m2}Low- PINFBON [facility] HOSPITALGlucose [Mass/Vol]287 mg/qCIfox94 - 99 mg/dLBON [facility]OS[facility]ITALInterpretation and review of laboratory resultsAbnormalBON [facility] HOSPITALPotassium [Moles/Vol]3.9 mmol/L3.7 - 5.3 mmol/LBON SECMERCY HEALTH ST[facility] CHARLES HOSPITALSodium [Moles/Vol] 134 mmol/SHdk170 - 144 mmol/LBON [facility] METHOD[facility] HOSPITALUrea nitrogen [Mass/Vol]25 mg/dLHigh6 - 20 mg/dLBON REGION[facility] CITY HOSPITALCBC with Auto Differentialon [id number] Eos #0.21BON [facility]OSPITALAbsolute Immature Granulocyte0.05BON [facility]OSPITALAbsolute Lymph #4.07HighBON [facility] HOSPITALAbsolute Menard #0.62BON [facility] HOSPITALBasophils (Bld) [#/Vol]0.03 10*3/uLBON [facility]OSPITALBasophils/100 WBC (Bld)0 %0 - 2 %[facility]OSPITALEosinophils/100 WBC (Bld)3 %1 - 4 %[facility] Hematocrit (Bld) [Volume fraction]37.5 %Low40.7 - 50.3 %[facility] Hemoglobin (Bld) [Mass/Vol]12.8 g/dLLow13.0 - 17.0 g/dLBON [facility] Immature granulocytes/100 WBC (Bld)1 %Waov4UFFCARILION ROANOKE COMMUNITY HOSPITAL Interpretation and review of laboratory resultsAbnormalCARILION [facility] Lymphocytes/100 WBC (Bld)47 %High24 - 43 %[facility] SYSTEMH (RBC) [Entitic mass]29.6 pg25.2 - 33.5 pgBON [facility] HOSPITALHC (RBC) [Mass/Vol] 34.1 g/dL28.4 - 34.8 g/dLBON [facility] HOSPITALV (RBC) [Entitic vol]86.8 fL 82.6 - 102.9 fLCARILION ROANOKE COMMUNITY HOSPITALMonocytes/100 WBC (Bld)7 %3 - 12 %[facility] HOSPITALNRBC Automated0.00.0 per 100 WBCCARILION ROANOKE COMMUNITY HOSPITAL Platelet distribution width (Bld) [Ratio]13.2 %11.8 - 14.4 %BON [facility] HOSPITALPlatelet mean volume (Bld) [Entitic vol]11.1 fL8.1 - 13.5 fLCARILION ROANOKE COMMUNITY HOSPITALPlatelets (Bld) [#/Vol]189 10*3/uLBON [facility] METHOD[facility] HOSPITALRBC (Bld) [#/Vol]4.32 10*6/uL4.21 - 5.77 m/uLCARILION ROANOKE COMMUNITY HOSPITALSeg Dlrrdgbrmwn44 %36 - 65 %BON [facility] HOSPITALSegs Absolute3.58BON [facility] HOSPITALWBC (Bld) [#/Vol]8.6 10*3/uLBON [facility]OSPITALCBC with Diffon [id number]. Basophil0.03 k/uLNormal0.00-0.20[facility]. [facility] HospitalComment on above:Performed By: #### BMP, MG, CBC, PT, PTT #### [employer] [address] [place] [address] Paper Sales Manager: Frankie Pereyra.Imm.Granulocyte0.05 k/uLNormal0.00-0.30[facility]. [facility] HospitalComment on above:Performed By: #### BMP, MG, CBC, PT, PTT #### [employer] [address] [place] [address] Paper Sales Manager: Frankie Pereyra.Neutrophil (Seg)3.58 k/uLNormal1.50-8.10 [facility] HospitalComment on above:Performed By: #### BMP, MG, CBC, PT, PTT #### [facility] [address] [place] [address] Paper Sales Manager: Vincent Sy MDBasophils/100 WBC (Bld)0 %Normal0-2MSanta Ana Hospital Medical CenterComment on above:Performed By: #### BMP, MG, CBC, PT, PTT #### [facility] [address] [place] [address] Paper Sales Manager: Vincent Sy MDEosinophils (Bld) [#/Vol]0.21 10*3/uLNormal 0.00-0.44St. [facility] HospitalComment on above:Performed By: #### BMP, MG, CBC, PT, PTT #### [facility] [address] [place] [address] Paper Sales Manager: REYNOLD Pereyraosinophils/100 WBC (Bld)3 %Normal1-4[facility]. [facility] HospitalComment on above:Performed By: #### BMP, MG, CBC, PT, PTT #### [facility] [employer] [address] [place] [address] Paper Sales Manager: Vincent Sy MDErythrocyte distribution width (RBC) [Ratio]13.2 %Zzldcs49.8-14.4[facility]. [facility] HospitalComment on above:Performed By: #### BMP, MG, CBC, PT, PTT #### [facility] [employer] [address] [place] [address] Paper Sales Manager: Vincent Sy MDHematocrit (Bld) [Volume fraction]37.5 %Low 40.7-50.3MSanta Ana Hospital Medical CenterComment on above:Performed By: #### BMP, MG, CBC, PT, PTT #### [facility] [address] [place] [address] Paper Sales Manager: Vincent Sy MDHemoglobin (Bld) [Mass/Vol]12.8 g/dLLow13.0-17.0 [facility] HospitalComment on above:Performed By: #### BMP, MG, CBC, PT, PTT #### [facility] [address] [place] [address] Paper Sales Manager: Elizabeth Pereyramature granulocytes/100 WBC (Bld)1 %Praf7VnvapSt. Francis HospitalComment on above:Performed By: #### BMP, MG, CBC, PT, PTT #### [facility] [address] [place] [address] Paper Sales Manager: Vincent Sy MDLymphocytes (Bld) [#/Vol]4.07 10*3/uLHigh 1.10-3.70St. [facility] HospitalComment on above:Performed By: #### BMP, MG, CBC, PT, PTT #### [facility] [employer] [address] [place] [address] Paper Sales Manager: Linda Pereyramphocytes/100 WBC (Bld)47 %Zxxo15-24DiulqSt. Francis HospitalComment on above:Performed By: #### BMP, MG, CBC, PT, PTT #### [facility] [employer] [address] [place] [address] Paper Sales Manager: JODEE PereyraCH (RBC) [Entitic mass]29.6 xaLiocla06.2-33.5 [facility] HospitalComment on above:Performed By: #### BMP, MG, CBC, PT, PTT #### [facility] [employer] [address] [place] [address] Paper Sales Manager: JENS PereyraC (RBC) [Mass/Vol]34.1 g/qPJgkjil70.4-34.8 [facility] HospitalComment on above:Performed By: #### BMP, MG, CBC, PT, PTT #### [facility] [employer] [address] [place] [address] Paper Sales Manager: JODEE PereyraCV (RBC) [Entitic vol]86.[address]VGtjkps06.6-102.9 [facility] HospitalComment on above:Performed By: #### BMP, MG, CBC, PT, PTT #### [address] [address] Paper Sales Manager: JODEE Pereyraonocytes (Bld) [#/Vol]0.62 10*3/uLNormal 0.10-1.20[facility]. [facility] HospitalComment on above:Performed By: #### BMP, MG, CBC, PT, PTT #### [place] [address] Paper Sales Manager: JODEE Pereyraonocytes/100 WBC (Bld)7 %Normal3-12St. [facility] HospitalComment on above:Performed By: #### BMP, MG, CBC, PT, PTT #### [place] [address] Paper Sales Manager: Kali Pereyrautrophil (Seg)42 %Bgnzyg02-03ZkvzkSt. Francis HospitalComment on above:Performed By: #### BMP, MG, CBC, PT, PTT #### [address] [address] Paper Sales Manager: Vincent Sy MDNRBC Automated0.0 per [address] [facility] HospitalComment on above:Performed By: #### BMP, MG, CBC, PT, PTT #### [address] [address] Paper Sales Manager: DOLLY Pereyralatelet mean volume (Bld) [Entitic vol]11.1 fL Normal8.1-13.5St. [facility] HospitalComment on above:Performed By: #### BMP, MG, CBC, PT, PTT #### [facility] [employer] [address] [place] [address] Paper Sales Manager: Sol Pereyrateguardian hospital ([facility]) [#/Vol]189 10*3/rDCzxlml465-425 [facility] HospitalComment on above:Performed By: #### BMP, MG, CBC, PT, PTT #### [facility] [address] [place] [address] Paper Sales Manager: MARSHA PereyraBC ([facility]) [#/Vol]4.32 10*6/uLNormal4.21-5.77 [facility] HospitalComment on above:Performed By: #### BMP, MG, CBC, PT, PTT #### [facility] [address] [place] [address] Paper Sales Manager: DE Pereyra ([facility]) [#/Vol]8.6 10*3/uLNormal3.5-11.3MSanta Ana Hospital Medical CenterComment on above:Performed By: #### BMP, MG, CBC, PT, PTT #### [facility] [address] [place] [address] Paper Sales Manager: SACHIN Pereyra Complete 2D W Doppler W ColorOrdered By: Jared Nation on 17-99-0698Edyg ventricular Ejection dxykkacg86KGTCENTRA SOUTHSIDE COMMUNITY HOSPITALTinkoff Digital Work Phone: LVEF MODALITYECHOBON PLACENTIA-LINDA HOSPITALTinkoff Digital Work Phone: [facility] Schedulicity Work Phone: ECHO Complete 2D W Doppler W Coloron 50-89-0163OF LVEF [facility] Schedulicity Work Phone: poc Glucose Fingerstickon 97-33-9947Bmkobit [Mass/Vol] 324 mg/lULgdy16 - 110 mg/dLBON PLACENTIA-LINDA HOSPITALTinkoff DigitalInterpretation and review of laboratory resultsAbnormalCENTRA SOUTHSIDE COMMUNITY HOSPITALANF Technology [facility] LAKE MARYTinkoff Digital Glucose [Mass/Vol]328 mg/qXGumd37 - 110 mg/dLBON PLAC[facility]LINDA HOSPITALMER[facility] Interpretation and review of laboratory resultsAbnormCJW Medical CenterGlucose [Mass/Vol]266 mg/lYQbxc75 - 110 mg/dLBON [facility] HOSPITALInterpretation and review of laboratory resultsAbnormCarilion Stonewall Jackson HospitalGlucose [Mass/Vol]253 mg/gAQrvj21 - 110 mg/dLBON [facility] HOSPITALInterpretation and review of laboratory results AbnormalSouthern Virginia Regional Medical Center 70-42-9567vHJZ Coag (Bld) [Time]53.5 sHigh20.5-30.5St. [facility] HospitalComment on above:Result Comment: IV Heparin Therapy Range: 48.6-77.8Performed By: #### PT, GLYHGB, CDP #### [facility] [employer] [address] [place], [place] [phone] Paper Sales Manager: Courtney Pereyra Coag (Bld) [Time]53.5 sHigON [facility]ERSIDE METHOD[facility] HOSPITALInterpretation and review of laboratory resultsAbnormUVA Health University HospitalT Coag (Bld) [Time]57.9 sHigh20.5-30.5 [facility] HospitalComment on above:Result Comment: IV Heparin Therapy Range: 48.6-77.8Performed By: #### BMP, MG, CBC, PT, PTT #### [facility] [employer] [address] [place], [place] [phone] Paper Sales Manager: Vincent Sy MDaPTT Coag (Bld) [Time]40.4 sHigh20.5-30.5St. [facility] HospitalComment on above:Result Comment: IV Heparin Therapy Range: 48.6-77.8Performed By: #### PT, GLYHGB, CDP #### [facility] [employer] [address] [place] [address] Paper Sales Manager: Tim Pereyra Metab w/rfx MGon 23-81-0120Pjxfa gap [Moles/Vol]11 mmol/LNormal9-17[facility] Medical CenterComment on above: Performed By: #### BMP, MG, CBC, PT, PTT #### [facility] [address] [place] [address] Paper Sales Manager: MELLY Pereyraalcium [Mass/Vol]10.0 mg/dLNormal8.6-10.4St. [facility] HospitalComment on above:Performed By: #### BMP, MG, CBC, PT, PTT #### [facility] [address] [place] [address] Paper Sales Manager: MELLY Pereyrahloride [Moles/Vol]99 mmol/PBewhkm22-312WrzulSt. Francis HospitalComment on above:Performed By: #### BMP, MG, CBC, PT, PTT #### [employer] [address] [place] [address] Paper Sales Manager: Vincent Sy MDCO2 [Moles/Vol]22 mmol/TJzvpur65-17OgnjySt. Francis HospitalComment on above:Performed By: #### BMP, MG, CBC, PT, PTT #### [employer] [address] [place] [address] Paper Sales Manager: MELLY Pereyrareatinine [Mass/Vol]2.04 mg/dLHigh0.70-1.20 [facility] HospitalComment on above:Performed By: #### BMP, MG, CBC, PT, PTT #### [employer] [address] [place] [address] Paper Sales Manager: Vincent Sy MDGFR/1.73 sq M.predicted among non-blacks MDRD (S/P/Bld) [Vol rate/Area]42 mL/min/{1.73_m2}Low>60MerKaiser Foundation HospitalComment on above:Result Comment: These results are [...] #### BMP, MG, CBC, PT, PTT #### [facility] [employer] [address] [place] [address] Paper Sales Manager: Vincent Sy MDGlucose [Mass/Vol]391 mg/fVCtxy46-17DsardSanta Ana Hospital Medical CenterComment on above:Performed By: #### BMP, MG, CBC, PT, PTT #### [place] [address] Paper Sales Manager: DOLLY Pereyraotassium [Moles/Vol]4.1 mmol/LNormal3.7-5.3 [facility] HospitalComment on above:Performed By: #### BMP, MG, CBC, PT, PTT #### [facility] [employer] [address] [place] [address] Paper Sales Manager: LISA Pereyraodium [Moles/Vol]132 mmol/DJfx667-538ItqgrSt. Francis HospitalComment on above:Performed By: #### BMP, MG, CBC, PT, PTT #### [facility] [employer] [address] [place] [address] Paper Sales Manager: Vincent Sy MDUrea nitrogen [Mass/Vol]31 mg/dLHigh6-20St. [facility] HospitalComment on above:Performed By: #### BMP, MG, CBC, PT, PTT #### [facility] [address] [place] [address] Paper Sales Manager: Vincent Sy MDBeta Hydroxybutyrateon 44-43-3681Iehu Hydroxybutyrate0.21 mmol/LNormal0.02-0.27St. [facility] HospitalComment on above:Performed By: #### BMP, MG, CBC, PT, PTT #### [facility]Eth[facility] [address] [place] [address] Paper Sales Manager: Vincent Sy MDBeta-Hydroxybutyrateon 05-24-2022 Beta-Hydroxybutyrate0.21 mmol/L0.02 - 0.27 mmol/LBON SEC[facility] CHARLES HOSPITALCBC with Auto Differentialon 55-70-4365Tzrqmrtc Eos #0.11BON [facility] Absolute Immature Granulocyte0.00BON SECMER[facility] CHARLES HOSPITALAbsolute Lymph #4.[address] CHARLES HOSPITALAbsolute Menard #0.64BON SECMER[facility] CHARLES HOSPITALBasophils (Bld) [#/Vol]0.00 10*3/uLBON SECMERCY HEALTH ST[facility] CHARLES HOSPITALBasophils/100 WBC (Bld)0 %0 - 2 %BON [facility] HOSPITALEosinophils/100 WBC (Bld)1 %1 - 4 %BON [facility] HOSPITALHematocrit (Bld) [Volume fraction]39.0 %Low40.7 - 50.3 %BON [facility] HOSPITALHemoglobin (Bld) [Mass/Vol]13.4 g/dL13.0 - 17.0 g/dLBON [facility] HOSPITALImmature granulocytes/100 WBC (Bld)0 %0BON [facility] Interpretation and review of laboratory resultsAbnormalBON [facility] Lymphocytes/100 WBC (Bld)46 %High24 - 44 %BON [facility] HOSPITALH (RBC) [Entitic mass]29.8 pg25.2 - 33.5 pgBON [facility] SHELBY HOSPITALHC (RBC) [Mass/Vol] 34.4 g/dL28.4 - 34.8 g/dLBON SECOHIOHEALTH GRADY MEMORIAL HOSPITALV (RBC) [Entitic vol]86.7 fL 82.6 - 102.9 fLBON [facility] HOSPITALMonocytes/100 WBC (Bld)6 %1 - 7 %BON SECMERCY [facility] CHARLES HOSPITALMorphology Aryan (Bld) [Interp]NormalBON [facility] NRBC Automated0.00.0 per 100 WBCBON [facility] HOSPITALPlatelet distribution width (Bld) [Ratio]13.1 %11.8 - 14.4 %BON [facility] HEALTHPlatelet mean volume (Bld) [Entitic vol]11.1 fL8.1 - 13.5 fLSMYTH COUNTY COMMUNITY HOSPITAL HEALTHPlatelets (Bld) [#/Vol]198 10*3/uLBON [facility] HEALTHRBC (Bld) [#/Vol]4.50 10*6/uL 4.21 - 5.77 m/uLCARILION ROANOKE COMMUNITY HOSPITALSeg Zkbxwbhweyv90 %36 - 66 %BON [facility] METHOD[facility] HOSPITALSegs Absolute5.03BON [facility] METHOD[facility] HOSPITALWBC (Bld) [#/Vol]10.7 10*3/uLBON [facility] GILBERTOURS SHELTERING ARMS HOSPITALBON [facility] HOSPITALCBC with Diffon [id number]. Basophil0.00 k/uLNormal0.0-0.2MSanta Ana Hospital Medical Center Comment on above:Performed By: #### PTT #### [facility] [employer] [address] [place] [address] Paper Sales Manager: Frankie Pereyra.Imm.Granulocyte0.00 k/uLNormal0.00-0.30[facility]. [facility] HospitalComment on above:Performed By: #### PTT #### [facility] [employer] [address] [place] [address] Paper Sales Manager: Frankie Pereyra.Neutrophil (Seg)5.03 k/uLNormal1.8-7.7St. [facility] HospitalComment on above:Performed By: #### PTT #### [place] [address] Paper Sales Manager: Vincent Sy MDBasophils/100 WBC (Bld)0 %Normal0-2MSanta Ana Hospital Medical CenterComment on above:Performed By: #### PTT #### [facility] [employer] [address] [place] [address] Paper Sales Manager: Vincent Sy MDEosinophils (Bld) [#/Vol]0.11 10*3/uLNormal 0.0-0.4[facility]. [facility] HospitalComment on above:Performed By: #### PTT #### [address] [address] Paper Sales Manager: Vincent Sy MDEosinophils/100 WBC (Bld)1 %Normal1-4[facility] Medical CenterComment on above:Performed By: #### PTT #### [address] [address] Paper Sales Manager: Vincent Sy MDImmature granulocytes/100 WBC (Bld)0 %Normal0 [facility]. [facility] HospitalComment on above:Performed By: #### PTT #### [address] [address] Paper Sales Manager: Vincent Sy MDLymphocytes (Bld) [#/Vol]4.92 10*3/uLHigh1.0-4.8 [facility] HospitalComment on above:Performed By: #### PTT #### [address] [address] Paper Sales Manager: Linda Pereyramphocytes/100 WBC (Bld)46 %Hxpw25-19Oobjy David Grant Usaf Medical CenterComment on above:Performed By: #### PTT #### [address] [address] Paper Sales Manager: JODEE Pereyraonocytes (Bld) [#/Vol]0.64 10*3/uLNormal0.1-0.8 [facility] HospitalComment on above:Performed By: #### PTT #### [address] [address] Paper Sales Manager: JODEE Pereyraonocytes/100 WBC (Bld)6 %Normal1-7[facility] Medical CenterComment on above:Performed By: #### PTT #### [address] [address] Paper Sales Manager: JODEE Pereyraorphology Aryan (Bld) [Interp]NormalNormalSt. Francis HospitalComment on above:Performed By: #### PTT #### [address] [address] Paper Sales Manager: Vincent Sy MDNeutrophil (Seg)47 %Lhqzww74-88JicvbSt. Francis HospitalComment on above:Performed By: #### PTT #### [address] [address] Paper Sales Manager: Vincent Sy MDErythrocyte distribution width (RBC) [Ratio]13.1 %Ddwwyk69.8-14.4[facility]. [facility] HospitalComment on above:Performed By: #### PTT #### [address] [address] Paper Sales Manager: Vincent Sy MDHematocrit (Bld) [Volume fraction]39.0 %Low 40.7-50.3[facility] Medical CenterComment on above:Performed By: #### PTT #### [address] [address] Paper Sales Manager: Vincent Sy MDHemoglobin (Bld) [Mass/Vol]13.4 g/dLNormal 13.0-17.0[facility]. [facility] HospitalComment on above:Performed By: #### PTT #### [address] [address] Paper Sales Manager: JODEE PereyraCH (RBC) [Entitic mass]29.[address] uxQjgqfq62.2-33.5 [facility] HospitalComment on above:Performed By: #### PTT #### [address] [address] Paper Sales Manager: JODEE PereyraCHC (RBC) [Mass/Vol]34.4 g/eDHrmxnb43.4-34.8 [facility] HospitalComment on above:Performed By: #### PTT #### [address] [address] Paper Sales Manager: JODEE PereyraCV (RBC) [Entitic vol]86.[address]kzdt47.6-102.9 [facility] HospitalComment on above:Performed By: #### PTT #### [place] [address] Paper Sales Manager: BRAYDON Pereyra Automated0.0 per [address] [facility] HospitalComment on above:Performed By: #### PTT #### [address] [address] Paper Sales Manager: Sol Pereyratecarlton mean volume (Bld) [Entitic vol]11.1 fL Normal8.1-13.5St. [facility] HospitalComment on above:Performed By: #### PTT #### [address] [address] Paper Sales Manager: DOLLY Pereyralatelets (Bld) [#/Vol]198 10*3/eOUwtswk643-123 [facility] HospitalComment on above:Performed By: #### PTT #### [address] [address] Paper Sales Manager: MARSHA PereyraBC (Bld) [#/Vol]4.50 10*6/uLNormal4.21-5.77 [facility] HospitalComment on above:Performed By: #### PTT #### [address] [address] Paper Sales Manager: RADHA PereyraBC (Bld) [#/Vol]10.7 10*3/uLNormal3.5-11.3MSanta Ana Hospital Medical CenterComment on above:Performed By: #### PTT #### [facility] [address] [place] [address] Paper Sales Manager: PETE Pereyra 12 LeadOrdered By: Bc Wilks on 05-24-2022 Atrial Reer21WQRHMX [facility] Work Phone: [phone] Zjen87mpxtcudOBU [facility] Work Phone: [phone]-R Eprdxhan842 msBON [facility] Work Phone: [phone]-T Xtdopkgc040 msBON [facility] Work Phone: [phone] Ugysaucj24 msBON [facility] Work Phone: [phone] Calculation (Bazett)429 msBON [facility] Work Phone: [phone] Nwsd33zmijawqKJB [facility] Work Phone: [phone] Wfwo55qeljxsyOVW [facility] Work Phone: [phone] Xgrs14JBGBFR [facility] Work Phone: [phone] [employer] [facility] Work Phone: EKG 12 Leadon 51-72-1109PDOX STV MUSEBON [facility] Work Phone: eKG 12 leadon 15-99-1217Lwrxsg Vfca96HXMUSX [facility] Work Phone: P Rcob74uzybsqdKKV [facility] Work Phone: P-R Kyullpdm505 msBON [facility] Work Phone: Q-T Fxjozqmb189 msB[facility] Work Phone: QRS Zmwqugcn25 msB[facility] Work Phone: QTc Calculation (Bazett)427 msBON [facility] Work Phone: r Rjhk28oczbmcsVRG [facility] Work Phone: T Mldf94slttczhNIWRiverside Tappahannock Hospital Work Phone: Ventricular Gosf37YLVDSU [facility] Work Phone: MHPN STV MUSECARILION ROANOKE [facility] Work Phone: bON [facility] Work Phone: lDL Chol, Directon 31-09-5679USC Chol, Ruimjv479 mg/dL High<100[facility]af Medical CenterComment on above:Performed By: #### PTT #### [employer] [address] [place] [phone] Paper Sales Manager: BERNICE Pereyra Cholesterol, Directon 45-88-8781Zrcovhxilzg in LDL [Mass/Vol]230 mg/dLHighNINF - 100 mg/dLBON [facility] Interpretation and review of laboratory resultsAbnoCarilion New River Valley Medical Center Lipid Profileon 72-04-8899Ceadybqdsbv,LDLNormal0-130MerKaiser Foundation HospitalComment on above:Result Comment: Calculation not valid for Triglyceride value greater than 400 mg/dL. Direct LDL reflexed LDL Guidelines: <100 Desirable 100-129 Near to/above Desirable 130-159 Borderline >159 Undesirable Direct (measured) LDL and calculated LDL are not interchangeable tests.Performed By: #### BMP, MG, CBC, PT, PTT #### [employer] [address] [place] [address] [phone] Paper Sales Manager: MELLY Pereyraholesterol [Mass/Vol]330 mg/dLHigh<200MerKaiser Foundation HospitalComment on above:Result Comment: Cholesterol Guidelines: <200 Desirable 200-240 Borderline >240 UndesirablePerformed By: #### BMP, MG, CBC, PT, PTT #### [employer] [address] [place], [place] [phone] Paper Sales Manager: MELLY Pereyraholesterol in HDL [Mass/Vol]40 mg/dLLow>40MerKaiser Foundation HospitalComment on above:Result Comment: HDL Guidelines: <40 Undesirable 40-59 Borderline >59 DesirablePerformed By: #### BMP, MG, CBC, PT, PTT #### [facility] [employer] [address] [place] [address] Paper Sales Manager: MELLY Pereyraholesterol.total/Cholesterol in HDL [Mass ratio]8.3 {ratio}High<5Mer[facility]af Medical CenterComment on above: Performed By: #### BMP, MG, CBC, PT, PTT #### [facility] [employer] [address] [place] [address] [phone] Paper Sales Manager: Vincent Sy MDTriglyceride [Mass/Vol]577 mg/dLHigh<150MerKaiser Foundation HospitalComment on above:Result Comment: Triglyceride Guidelines: <150 Desirable 150-199 Borderline 200-499 High >499 Very high Based on AHA Guidelines for fasting triglyceride, December 2011.Performed By: #### BMP, MG, CBC, PT, PTT #### [employer] [address] [place] [address] [phone] Paper Sales Manager: Greg Pereyragnesiumon 49-51-1235Yvxhoshch [Mass/Vol]1.8 mg/dLNormal1.6-2.6[facility]af Medical CenterComment on above:Performed By: #### BMP, MG, CBC, PT, PTT #### [employer] [address] [place] [address] [phone] Paper Sales Manager: Vincent Sy MDNo Panel Informationon [id number] [facility] Glucose Fingerstickon 17-86-6266Oruvtjk [Mass/Vol]293 mg/dLHigh 75 - 110 mg/dLBON [facility] HOSPITALInterpretation and review of laboratory resultsAbnormalCHILDREN'S HOSPITAL OF RICHMOND AT VCUGlucose [Mass/Vol]364 mg/kJJdov69 - 110 mg/dLBON [facility] HOSPITALInterpretation and review of laboratory resultsAbnormalCHILDREN'S HOSPITAL OF RICHMOND AT VCUGlucose [Mass/Vol]417 mg/dLCritically high75 - 110 mg/dLBON [facility] HOSPITALInterpretation and review of laboratory resultsAbnormalCHILDREN'S HOSPITAL OF RICHMOND AT VCUProtein,Tot,[place] Uron 35-32-9995Euelceoszl [Mass/Vol]123.3 mg/kKDvquhr68.0-259.0St. [facility] HospitalComment on above:Performed By: #### PT, GLYHGB, CDP #### [employer] [address] [place] [address] Paper Sales Manager: Morgan Pereyra Prot. Conc.76 mg/dLNoVan Wert County HospitalComment on above:Result Comment: No normal range established. Performed By: #### PT, GLYHGB, CDP #### [employer] [address] [place] [address] Paper Sales Manager: Vincent Sy MDTP/Cre Ratio0.28Yirp1.00-0.20St. [facility] HospitalComment on above:Performed By: #### PT, GLYHGB, CDP #### [employer] [address] [place] [address] 74023 Paper Sales Manager: ISIDORO Pereyra w/Reflex Cultureon [id number], SemiQt,UrNegativeNormalNEGSt. Francis HospitalComment on above: Performed By: #### BMP, MG, CBC, PT, PTT #### [employer] [address] [place] [address] 78299 Paper Sales Manager: Claudio Pereyra, UrineNegativeNormalNEGSt. Francis HospitalComment on above:Performed By: #### BMP, MG, CBC, PT, PTT #### [employer] [address] [place] [address] 58119 Paper Sales Manager: Eris Pereyra (U)ClearNormalCLEARSt. Francis HospitalComment on above:Performed By: #### BMP, MG, CBC, PT, PTT #### [facility] [address] [place] [address] 08613 Paper Sales Manager: MELLY Pereyraolor (U)YellowNormalYELMerKaiser Foundation HospitalComment on above:Performed By: #### BMP, MG, CBC, PT, PTT #### [facility] [address] [place] [address] 10975 Paper Sales Manager: Vincent Sy MDGlucose Ql (U)3+AbnormalNEGSt. Francis HospitalComment on above:Performed By: #### BMP, MG, CBC, PT, PTT #### [facility] [address] [place] [address] 42762 Paper Sales Manager: Vincent Sy MDKetones Ql (U)NegativeNormalNEGSt. Francis HospitalComment on above:Performed By: #### BMP, MG, CBC, PT, PTT #### [facility] [address] [place] [address] 89610 Paper Sales Manager: Vincent Sy MDLeukocyte esterase Test strip Ql (U)Negative NormalNEGSt. Francis HospitalComment on above:Performed By: #### BMP, MG, CBC, PT, PTT #### [facility] [address] [place] [address] 21416 Paper Sales Manager: Brandy Pereyratrite,UrNegativeNormalNEGSt. Francis HospitalComment on above:Performed By: #### BMP, MG, CBC, PT, PTT #### [facility] [address] [place] [address] 35196 Paper Sales Manager: Vincent Sy [facility],Ur5.8Ezvjpw2.0-8.0MerKaiser Foundation HospitalComment on above:Performed By: #### BMP, MG, CBC, PT, PTT #### [facility] [address] [place] [address] [phone] Paper Sales Manager: DOLLY Pereyrarotein Ql (U)2+AbnormalNEGSt. Francis HospitalComment on above:Performed By: #### BMP, MG, CBC, PT, PTT #### [facility] [address] [place] [address] Paper Sales Manager: LISA Pereyrapec. [place],Ur1.674Giwvvy2.005-1.030St. Francis HospitalComment on above:Performed By: #### BMP, MG, CBC, PT, PTT #### [facility] [address] [place] [address] Paper Sales Manager: Vincent Sy MDUrobilinogen,UrNormalNormalNORMSt. Francis HospitalComment on above:Performed By: #### BMP, MG, CBC, PT, PTT #### [facility] [address] [place] [address] Paper Sales Manager: Vincent Sy MDUS RETROPERITONEAL COMPLETEon [id number] RETROPERITONEAL COMPLETEEXAMINATION: RETROPERITONEAL ULTRASOUND OF THE KIDNEYS [...] Signed by: Sony Whitt MD 05/24/22 Final resultNormalSt. Francis HospitalUrinalysis,Microon 05-24-2022 Casts2 TO 5 HYALINENormal0-8St. Francis HospitalComment on above: Result Comment: Reference range defined for non-centrifuged specimen.Performed By: #### BMP, MG, CBC, PT, PTT #### [facility] [address] [place] [address] 22382 Paper Sales Manager: Vincent Sy MDEpithelial cells LM Ql (Urine sed)0 TO 2Normal 0-5St. Francis HospitalComment on above:Performed By: #### BMP, MG, CBC, PT, PTT #### [facility] [address] [place] [address] 68979 Paper Sales Manager: Vincent Sy MDUrine RBC's0 TO 3Gsqdyw1-6QoijoSt. Francis HospitalComment on above:Result Comment: Reference range defined for non- centrifuged specimen.Performed By: #### BMP, MG, CBC, PT, PTT #### [facility] [employer] [address] [place] [address] 34306 Paper Sales Manager: Carlos Enrique Pereyra WBC's2 TO 2Qlyrla4-8QbiuxSt. Francis HospitalComment on above:Performed By: #### BMP, MG, CBC, PT, PTT #### [employer] [address] [place] [address] 07616 Paper Sales Manager: Tali Pereyra [id number] Coag (Bld) [Time]40.9 s High20.5-30.5St. Francis HospitalComment on above:Result Comment: IV Heparin Therapy Range: 48.6-77.8Performed By: #### BMP, MG, CBC, PT, PTT #### [employer] [address] [place] [address] 64638 Paper Sales Manager: Vincent Sy MDBasic Metab w/rfx MGon 35-06-5620Ecpxxbk [Mass/Vol]416 mg/dLCritically guxs70-58TlozwMercy San Juan Medical CenterComment on above:Performed By: #### BMP, MG, CBC, PT, PTT #### [facility] [employer] [address] [place] [address] 21714 Paper Sales Manager: Katelin Pereyra gap [Moles/Vol]12 mmol/LNormal9-17St. Francis HospitalComment on above:Performed By: #### BMP, MG, CBC, PT, PTT #### [employer] [address] [place] [address] 71512 Paper Sales Manager: MELLY Pereyraalcium [Mass/Vol]10.6 mg/dLHigh8.6-10.4St. Francis HospitalComment on above:Performed By: #### BMP, MG, CBC, PT, PTT #### [facility] [address] [place] [address] 06048 Paper Sales Manager: MELLY Pereyrahloride [Moles/Vol]97 mmol/TSlo60-269BfyasSt. Francis HospitalComment on above:Performed By: #### BMP, MG, CBC, PT, PTT #### [employer] [address] [place] [address] 74473 Paper Sales Manager: Vincent Sy MDCO2 [Moles/Vol]23 mmol/TJpmyot33-76CqvpfSt. Francis HospitalComment on above:Performed By: #### BMP, MG, CBC, PT, PTT #### [employer] [address] [place] [address] 95009 Paper Sales Manager: MELLY Pereyrareatinine [Mass/Vol]2.08 mg/dLHigh0.70-1.20 [facility] HospitalComment on above:Performed By: #### BMP, MG, CBC, PT, PTT #### [employer] [address] [place] [address] 58915 Paper Sales Manager: Vincent Sy MDGFR/1.73 sq M.predicted among non-blacks MDRD (S/P/Bld) [Vol rate/Area]41 mL/min/{1.73_m2}Low>60St. Francis HospitalComment on above:Result Comment: These results are [...] #### BMP, MG, CBC, PT, PTT #### [facility] [employer] [address] [place] [address] 33157 Paper Sales Manager: DOLLY Pereyraotassium [Moles/Vol]4.3 mmol/LNormal3.7-5.3 [facility] HospitalComment on above:Performed By: #### BMP, MG, CBC, PT, PTT #### [facility] [employer] [address] [place] [address] Paper Sales Manager: LISA Pereyraodium [Moles/Vol]132 mmol/VQlq859-534VnssgSt. Francis HospitalComment on above:Performed By: #### BMP, MG, CBC, PT, PTT #### [facility] [address] [place] [address] Paper Sales Manager: Vincent Sy MDUrea nitrogen [Mass/Vol]34 mg/dLHigh6-20St. Francis HospitalComment on above:Performed By: #### BMP, MG, CBC, PT, PTT #### [facility] [employer] [address] [place] [address] Paper Sales Manager: MELLY PereyraARDIAC ALECIA 3-6on [id number] [Catalytic activity/Vol]155 U/EHotpvi46-555Fnu [facility] HospitalComment on above:Performed By: #### DDIM #### [facility] [address] [address] [address] Sushila Castellon.MB [Mass/Vol]2.94 ng/mLNormal<=3.60The [facility] Comment on above:Performed By: #### DDIM #### [facility] [address] [place], [place] [address] Dr. Sushila DongHSTROP718.1 pg/mLCritically high4.0-76.1[facility] Comment on above:Result Comment: CUT-OFF POINTS HAVE BEEN ESTABLISHED BASED ON THE FOURTH UNIVERSAL DEFINITIONS OF MYOCARDIAL INFARCTION. THE UPPER REFERENCE LIMIT (URL) OF TROPONIN, DEFINED THE 99TH PERCENTILE OF cTnI DISTRIBUTION IN A REFERENCE POPULATION, HAS BEEN CONFIRMED THE DECISION THRESHOLD FOR [place] DIAGNOSIS.Performed By: #### DDIM #### [facility] [address] [address] [address] Sushila Castellon [Catalytic activity/Vol]154 U/CBwmyke86-072JhuOhiohealth Hardin Memorial HospitalComment on above:Performed By: #### CMREP #### [facility] [address] [address] [address] Sushila Castellon.MB [Mass/Vol]2.46 ng/mLNormal<=3.60[facility] Comment on above:Performed By: #### CMREP #### [facility] [address] [place] [address] Dr. Sushila Titus445.9 pg/mLCritically high4.0-76.1[facility] Comment on above:Result Comment: CUT-OFF POINTS HAVE BEEN ESTABLISHED BASED ON THE FOURTH UNIVERSAL DEFINITIONS OF MYOCARDIAL INFARCTION. THE UPPER REFERENCE LIMIT (URL) OF TROPONIN, DEFINED THE 99TH PERCENTILE OF cTnI DISTRIBUTION IN A REFERENCE POPULATION, HAS BEEN CONFIRMED THE DECISION THRESHOLD FOR IL DIAGNOSIS.Performed By: #### CMREP #### [facility] [address] [place] [address] Dr. Sushila ALSTON ADMITon [id number] [Catalytic activity/Vol]145 U/L Gjbjvh19-288QjcOhiohealth Hardin Memorial HospitalComment on above:Performed By: #### BMP CMADM #### [facility] [address] [address] [address] Sushila Castellon.MB [Mass/Vol]2.14 ng/mLNormal<=3.60[facility] Comment on above:Performed By: #### BMP, CMADM #### [facility] [address] [address] [address] Sushila Titus84.8 pg/mLCritically high4.0-76.1[facility] Comment on above:Result Comment: CUT-OFF POINTS HAVE BEEN ESTABLISHED BASED ON THE FOURTH UNIVERSAL DEFINITIONS OF MYOCARDIAL INFARCTION. THE UPPER REFERENCE LIMIT (URL) OF TROPONIN, DEFINED THE 99TH PERCENTILE OF cTnI DISTRIBUTION IN A REFERENCE POPULATION, HAS BEEN CONFIRMED THE DECISION THRESHOLD FOR [place] DIAGNOSIS.Performed By: #### BMP, CMADM #### [facility] [address] [place] [address] Dr. Sushila EmmanuelO214 ng/mLCritically unvu03-20Ggv [facility] HospitalComment on above:Performed By: #### BMP, CMADM #### [facility] [address] [place] [address] Dr. Sushila Costello AUTO DIFFon [id number] #0.0 103/ulNormal0.0-0.1[facility] HospitalComment on above:Performed By: #### CBC #### [facility] [address] [place] [address] Dr. Sushila DongBasophils/100 WBC (Bld)0.4 %Normal0.2-2.0[facility] Comment on above:Performed By: #### CBC #### [facility] [address] [place] [address] Dr. Sushila Mays #0.1 103/ulNormal0.0-0.7The [facility] HospitalComment on above: Performed By: #### CBC #### [facility] [address] [place] [address] Dr. Sushila Rileyosinophils/100 WBC (Bld)1.6 %Normal0.9-7.0[facility] Comment on above:Performed By: #### CBC #### [facility] [address] [place] [address] Dr. Sushila Rileyrythrocyte distribution width (RBC) [Ratio]12.7 %Ckjyqq67.0-15.0 [facility] HospitalComment on above:Performed By: #### CBC #### [facility] [address] [place] [address] Dr. Sushila DongHematocrit (Bld) [Volume fraction]43.8 %Cpklon57.0-54.0The [facility] HospitalComment on above:Performed By: #### CBC #### [facility] [address] [place] [address] Dr. Sushila DongHemoglobin (Bld) [Mass/Vol]15.0 g/nOHtyqpz11.0-18.0The [facility] HospitalComment on above:Performed By: #### CBC #### [facility] [address] [place] [address] Dr. Sushila Munroe #0.04 10e3/ulCritically high0.00-0.03The [facility] Comment on above:Performed By: #### CBC #### [facility] [address] [place] [address] Dr. Sushila Munroe %0.4 %Normal0.0-0.5The [facility] HospitalComment on above: Performed By: #### CBC #### [facility] [address] [place] [address] Dr. Sushila Martinez #2.4 103/ulNormal1.2-3.8The [facility] HospitalComment on above:Performed By: #### CBC #### [facility] [address] [place] [address] Dr. Sushila Virkhocytes/100 WBC (Bld)26.5 %Bdouaj51.5-60.0The [facility] HospitalComment on above:Performed By: #### CBC #### [facility] [address] [place] [address] Dr. Sushila PorterUAL DIFF REQNONormalThe [facility] HospitalComment on above: Performed By: #### CBC #### [facility] [address] [place] [address] Dr. Sushila Farias (RBC) [Entitic mass]29.6 ivBevmys22.9-34.0The [facility] HospitalComment on above:Performed By: #### CBC #### [facility] [address] [place] [address] Dr. Sushila Campos (RBC) [Mass/Vol]34.2 g/jHDsvzys24.9-35.2The [facility] HospitalComment on above:Performed By: #### CBC #### [facility] [address] [place] [address] Dr. Sushila CamposV (RBC) [Entitic vol]86.6 kEQicdcv85.0-94.0The [facility] HospitalComment on above:Performed By: #### CBC #### [facility] [address] [place] [address] Dr. uSshila Gonzalez #0.8 103/ulNormal0.3-0.8The [facility] HospitalComment on above:Performed By: #### CBC #### [facility] [address] [place] [address] Dr. Sushila Ramiresocytes/100 WBC (Bld)9.4 %Normal1.7-12.0The [facility] Comment on above:Performed By: #### CBC #### [facility] [address] [place] [address] Dr. Sushila Smiley #5.5 103/ulNormal1.4-6.5The [facility] HospitalComment on above:Performed By: #### CBC #### [facility] [address] [place] [address] Dr. Sushila Shipleyutrophils/100 WBC (Bld)61.7 %Cufcdf68.0-75.0The [facility] HospitalComment on above:Performed By: #### CBC #### [facility] [address] [place] [address] Dr. Sushila Warnerlet mean volume (Bld) [Entitic vol]11.0 fLNormal9.5-13.5The [facility] HospitalComment on above:Performed By: #### CBC #### [facility] [address] [place] [address] Dr. Sushila RaviT236 103/nyWhcloe448-871Mmu [facility] HospitalComment on above: Performed By: #### CBC #### [facility] [address] [place] [address] Dr. Sushila BlasC5.06 106/ulNormal4.70-6.10The [facility] HospitalComment on above:Performed By: #### CBC #### [facility] [address] Sushila DongWBC8.9 103/ulNormal4.0-11.0[facility] HospitalComment on above: Performed By: #### CBC #### [facility] [address] [address] [address] Sushila DongWHITESBUR[facility] with Diffon [id number]. Basophil0.06 k/uLNormal0.00-0.20 [facility] HospitalComment on above:Performed By: #### BMP, MG, CBC, PT, PTT #### [place] [address] Paper Sales Manager: Frankie Pereyra.Imm.Granulocyte0.04 k/uLNormal0.00-0.30St. [facility] HospitalComment on above:Performed By: #### BMP, MG, CBC, PT, PTT #### [place] [address] Paper Sales Manager: Frankie Pereyra.Neutrophil (Seg)5.16 k/uLNormal1.50-8.10 [facility] HospitalComment on above:Performed By: #### BMP, MG, CBC, PT, PTT #### [facility] [employer] [address] [place] [address] Paper Sales Manager: Vincent Sy MDBasophils/100 WBC (Bld)1 %Normal0-2MercMercy San Juan Medical CenterComment on above:Performed By: #### BMP, MG, CBC, PT, PTT #### [facility] [employer] [address] [place] [address] Paper Sales Manager: Vincent Sy MDEosinophils (Bld) [#/Vol]0.21 10*3/uLNormal 0.00-0.44St. [facility] HospitalComment on above:Performed By: #### BMP, MG, CBC, PT, PTT #### [facility] [address] [place] [address] Paper Sales Manager: Vincent Sy MDEosinophils/100 WBC (Bld)2 %Normal1-4[facility]. [facility] HospitalComment on above:Performed By: #### BMP, MG, CBC, PT, PTT #### [facility] [employer] [address] [place] [address] Paper Sales Manager: Vincent Sy MDErythrocyte distribution width (RBC) [Ratio]12.4 %Ewyokf18.8-14.4[facility]. [facility] HospitalComment on above:Performed By: #### BMP, MG, CBC, PT, PTT #### [place] [address] Paper Sales Manager: Vincent Sy MDHematocrit (Bld) [Volume fraction]43.4 %Normal 40.7-50.3MSanta Ana Hospital Medical CenterComment on above:Performed By: #### BMP, MG, CBC, PT, PTT #### [facility] [employer] [address] [place] [address] Paper Sales Manager: Vincent Sy MDHemoglobin (Bld) [Mass/Vol]15.5 g/dLNormal 13.0-17.0[facility]. [facility] HospitalComment on above:Performed By: #### BMP, MG, CBC, PT, PTT #### [facility] [employer] [address] [place] [address] Paper Sales Manager: Vincent Sy MDImmature granulocytes/100 WBC (Bld)0 %Normal0 [facility] HospitalComment on above:Performed By: #### BMP, MG, CBC, PT, PTT #### [facility] [employer] [address] [place] [address] Paper Sales Manager: Vincent Sy MDLymphocytes (Bld) [#/Vol]4.44 10*3/uLHigh 1.10-3.70St. [facility] HospitalComment on above:Performed By: #### BMP, MG, CBC, PT, PTT #### [facility] [employer] [address] [place] [address] Paper Sales Manager: Wes Pereyrahocytes/100 WBC (Bld)41 %Czhcer20-12FlwhwSt. Francis HospitalComment on above:Performed By: #### BMP, MG, CBC, PT, PTT #### [facility] [employer] [address] [place] [address] Paper Sales Manager: JODEE PereyraCH (RBC) [Entitic mass]29.[address]qBcbfkn73.2-33.5 [facility] HospitalComment on above:Performed By: #### BMP, MG, CBC, PT, PTT #### [facility] [employer] [address] [place] [address] Paper Sales Manager: JODEE PereyraCHC (RBC) [Mass/Vol]35.7 g/gTTvdn52.4-34.8St. [facility] HospitalComment on above:Performed By: #### BMP, MG, CBC, PT, PTT #### [facility] [employer] [address] [place] [address] Paper Sales Manager: JODEE PereyraCV (RBC) [Entitic vol]83.[address]mci43.6-102.9 [address] [facility] HospitalComment on above:Performed By: #### BMP, MG, CBC, PT, PTT #### [facility] [employer] [address] [place] [address] Paper Sales Manager: JODEE Pereyraonocytes (Bld) [#/Vol]1.02 10*3/uLNormal 0.10-1.20[facility]. [facility] HospitalComment on above:Performed By: #### BMP, MG, CBC, PT, PTT #### [facility] [employer] [address] [place] [address] Paper Sales Manager: JODEE Pereyraonocytes/100 WBC (Bld)9 %Normal3-12St. [facility] HospitalComment on above:Performed By: #### BMP, MG, CBC, PT, PTT #### [facility] [employer] [address] [place] [address] Paper Sales Manager: Starr Pereyraophil (Seg)47 %Kznzny59-42JqkyhSt. Francis HospitalComment on above:Performed By: #### BMP, MG, CBC, PT, PTT #### [facility] [employer] [address] [place] [address] Paper Sales Manager: Vincent Sy MDNRBC Automated0.0 per [address] [facility] HospitalComment on above:Performed By: #### BMP, MG, CBC, PT, PTT #### [facility] [address] [place] [address] Paper Sales Manager: Sol Pereyratecarlton mean volume (Bld) [Entitic vol]11.4 fL Normal8.1-13.5St. [facility] HospitalComment on above:Performed By: #### BMP, MG, CBC, PT, PTT #### [facility] [employer] [address] [place] [address] Paper Sales Manager: DOLLY Pereyralatelets (Bld) [#/Vol]248 10*3/pIJfjhbo034-812 [facility] HospitalComment on above:Performed By: #### BMP, MG, CBC, PT, PTT #### [facility] [employer] [address] [place] [address] Paper Sales Manager: Vincent Sy MDRBC (Bld) [#/Vol]5.20 10*6/uLNormal4.21-5.77 [facility] HospitalComment on above:Performed By: #### BMP, MG, CBC, PT, PTT #### [facility] [address] [place], [place] [id number] Paper Sales Manager: DE Pereyra (Bld) [#/Vol]10.9 10*3/uLNormal3.5-11.3[facility] Medical CenterComment on above:Performed By: #### BMP, MG, CBC, PT, PTT #### [facility] [address] [place] [address] Paper Sales Manager: MELLY Pereyraovidarby-19 PCR ([facility])on [id number]-CoV-2 (COVID-19) RNA VIK+probe Ql (Unsp spec)Not detectedNormalNOT DETECTEDThe [facility] HospitalComment on above:Result Comment: When diagnostic testing is [...] for this test is supported by the [place] of Health and Human Service's declaration that [...] longer be used).Performed By: #### DDIM #### [facility] [address] [place] [address] Dr. Sushila Miner [id number]-DIMER0.40 mg/L FEUNormal<=0.59The [facility] HospitalComment on above:Performed By: #### DDIM #### [facility] [address] [address] [address] Sushila Conn COMMENTSSEE [facility] on above:Result Comment: Increases in D-Dimer concentration [...] and generalized hospitalization.Performed By: #### DDIM #### [facility] [address] [place] [address] Dr. Sushila Curry URINE PROFILEon 51-11-4698Fqknekccd Ql (U)NegativeNormal NEGATIVEOhiohealth Hardin Memorial HospitalComment on above:Performed By: #### LAI, ERUR #### [facility] [address] [place] [address] Dr. Sushila DongClarity (U)CLEARNormalCLEAROhiohealth Hardin Memorial HospitalComment on above: Performed By: #### LAI, ERUR #### [facility] [address] [place] [address] Dr. Sushila Salmon (U)LT. YELLOWNormalYELLOWOhiohealth Hardin Memorial HospitalComment on above:Performed By: #### LAI, ERUR #### [facility] [address] [place] [address] Dr. Sushila GivensROQUE micrscopic examination will be performed if indicated. NormalThe [facility] HospitalComment on above:Performed By: #### UMAKHILRO, ERUR #### [facility] [address] [place] [address] Dr. Sushila DongGlucose Ql (U)>1000AbnormalNEGATIVEOhiohealth Hardin Memorial HospitalComment on above:Performed By: #### BLAYNERO, ERUR #### [facility] [address] [place] [address] Dr. Sushila DongHemoglobin Ql (U)TRACE-LYSEDAbnormalNEGATIVEOhiohealth Hardin Memorial Hospital Comment on above:Performed By: #### UMICRO, ERUR #### [facility] [address] [address] [address] Sushila Clark Ql (U)NegativeNormalNEGATIVEThe [facility] HospitalComment on above:Performed By: #### LAI ERUR #### [facility] [address] [address] [address] Sushila DongLEUKOCYTESNegativeNormalNEGATIVEThe [facility] HospitalComment on above:Performed By: #### LAI ERUR #### [facility] [address] [place] [address] Dr. Sushila Callestrcharlie Ql (U)NegativeNormalNEGATIVEThe [facility] HospitalComment on above:Performed By: #### LAI ERUR #### [facility] [address] [place] [address] Dr. Sushila DongpH (U)6.0 [pH]Normal5-9The [facility] HospitalComment on above: Performed By: #### LAI ERUR #### [facility] [address] [place] [address] Dr. Sushila DongProtein (U) [Mass/Vol]30 mg/dLAbnormalNEGATIVE/ TRACEThe [facility] HospitalComment on above:Performed By: #### LAI ERUR #### [facility] [address] [place] [address] Dr. Sushila DongSPEC GRAVITY<=1.794Uhwshcqu9.005-<=1.025The [facility] Comment on above:Performed By: #### LAI ERUR #### [facility] [address] [place] [address] Dr. Sushila DongUR MICRO INDINDICATEDNormalThe [facility] HospitalComment on above: Performed By: #### LAI ERUR #### [facility] [address] [place] [address] Dr. Sushila Osbornebilino Qn (U)0.2 {Ellyn'U}/dLNormal0.2 - 1.0The [facility] HospitalComment on above:Performed By: #### LAI, ERUR #### [facility] [address], [place] [address] Dr. Sushila DognGLUCOSE BLOODon 88-09-9215Eujvosz [Mass/Vol]586 mg/dLCritically xhdd84-191IjaOhiohealth Hardin Memorial HospitalComment on above:Performed By: #### DDIM #### [facility] [address] [address] [address] Sushila DongGlucose [Mass/Vol]713 mg/dLCritically jsaf64-034GtwOhiohealth Hardin Memorial HospitalComment on above:Performed By: #### GLUC #### [facility] [address] [address] [address] Sushila DongHemoglobin A1Con 86-89-5281Kstghys [Mass/Vol]243 mg/dLNormalSt. Francis HospitalComment on above:Result Comment: The ADA and AACC recommend providing the estimated average glucose result to permit better patient understanding of their HBA1c result.Performed By: #### BMP, MG, CBC, PT, PTT #### [employer] [address] [place], [place] [id number] Paper Sales Manager: Vincent Sy MDHbA1c (Bld) [Mass fraction]10.1 %High4.0-6.0 [facility] Francis HospitalComment on above:Performed By: #### BMP, MG, CBC, PT, PTT #### [employer] [address] [place] [address] Paper Sales Manager: Vincent Sy MDLipaseon 34-94-0836Bvsjvl [Catalytic activity/Vol]59 U/XXuaoau57-86DfrupSt. Francis HospitalComment on above: Performed By: #### BMP, MG, CBC, PT, PTT #### [employer] [address] [place] [address] Paper Sales Manager: DOLLY PereyraOINT OF CARE GLUCOSEon 86-95-2350Znwwlko [Mass/Vol]561 mg/dLCritically ktej34-801DnmOhiohealth Hardin Memorial HospitalComment on above: Result Comment: Lab Draw OrderedPerformed By: #### DDIM #### [facility] [address] [address] [address] Sushila ParsonsCGLUC>600Critically apjo33-507Mhk [facility] HospitalComment on above:Result Comment: Lab Draw OrderedPerformed By: #### DDIM #### [facility] [address] [address] [address] Sushila ParsonsCGLUC>600Critically uohk21-508Psx [facility] HospitalComment on above:Result Comment: Previously ConfirmedPerformed By: #### DDIM #### [facility] [address] [place] [address] Dr. Sushila ParsonsCGLUC>600Critically iede77-181Dbb [facility] HospitalComment on above:Result Comment: Lab Draw OrderedPerformed By: #### DDIM #### [facility] [address] [place] [address] Dr. Sushila DongPROF CHEM 8 (BAS METB)on 97-20-0221Izsde gap [Moles/Vol]13.4 mmol/LNormalThe [facility] HospitalComment on above:Performed By: #### BMP #### [facility] [address] [place] [address] Dr. Sushila DongCalcium [Mass/Vol]12.2 mg/dLCritically high8.5-10.1The [facility] HospitalComment on above:Performed By: #### BMP #### [facility] [address] [place] [address] Dr. Sushila DongChloride [Moles/Vol]87 mmol/LCritically gfd04-738Aqq [facility] HospitalComment on above:Performed By: #### BMP #### [facility] [address] [place] [address] Dr. Sushila DongCO2 [Moles/Vol]25.9 mmol/IHnqrif64.0-32.0The [facility] Comment on above:Performed By: #### BMP #### [facility] [address] [place] [address] Dr. Sushila DongCreatinine [Mass/Vol]2.51 mg/dLCritically high0.70-1.30The [facility] HospitalComment on above:Performed By: #### BMP #### [facility] [address] [place] [address] Dr. Sushila RileyGFR-AF UGDTWVMJ86 mL/min/1.31x2Ehdzgrrcjk low>=60The [facility] HospitalComment on above:Performed By: #### BMP #### [facility] [address] [place] [address] Dr. Sushila RileyGFR-NON AF DKFZMKHX33 mL/min/1.03s3Wmgtppiuau low>=60The [facility] HospitalComment on above:Performed By: #### BMP #### [facility] [address] [place] [address] Dr. Sushila DongGlucose [Mass/Vol]863 mg/dLCritically odhw56-439Djg [facility] HospitalComment on above:Performed By: #### BMP #### [facility] [address] [place] [address] Dr. Sushila DongPotassium [Moles/Vol]5.3 mmol/LCritically high3.5-5.1The [facility] HospitalComment on above:Performed By: #### BMP #### [facility] [address] [place] [address] Dr. Sushila Quiñonezdium [Moles/Vol]120 mmol/LCritically isw665-519Pvl [facility] HospitalComment on above:Performed By: #### BMP #### [facility] [address] [place] [address] Dr. Sushila DongUrea nitrogen [Mass/Vol]40.0 mg/dLCritically high7.0-18.0The [facility] HospitalComment on above:Performed By: #### BMP #### [facility] [address] [place] [address] Dr. Sushila Epstein nitrogen/Creatinine [Mass ratio]15.9 mg/mgNormalThe [facility] HospitalComment on above:Performed By: #### BMP #### [facility] [address] [place] [address] Dr. Yilan ChangAnion gap [Moles/Vol]12.7 mmol/LNormalThe [facility] Comment on above:Performed By: #### DDIM #### [facility] [address] [place] [address] Dr. Sushila DongCalcium [Mass/Vol]10.8 mg/dLCritically high8.5-10.1The [facility] HospitalComment on above:Performed By: #### DDIM #### [facility] [address] [place] [address] Dr. Sushila DongChloride [Moles/Vol]82 mmol/LCritically xch42-319Myn [facility] HospitalComment on above:Performed By: #### DDIM #### [facility] [address] [place] [address] Dr. Sushila DongCO2 [Moles/Vol]24.9 mmol/APvzppx11.0-32.0[facility] Comment on above:Performed By: #### DDIM #### [facility] [address] [place] [address] Dr. Sushila DongCreatinine [Mass/Vol]2.75 mg/dLCritically high0.70-1.30The [facility] HospitalComment on above:Performed By: #### DDIM #### [facility] [address] [place] [address] Dr. Sushila RileyGFR-AF IYXAITMQ94 mL/min/1.92r7Fufneuyykn low>=60The [facility] HospitalComment on above:Performed By: #### DDIM #### [facility] [address] [place] [address] Dr. Sushila RileyGFR-NON AF DSIIKZPC05 mL/min/1.21i2Jtswwbvnwo low>=60The [facility] HospitalComment on above:Performed By: #### DDIM #### [facility] [address] [place] [address] Dr. Sushila DongGlucose [Mass/Vol]1135 mg/dLCritically yzzx61-768Bnl [facility] HospitalComment on above:Performed By: #### DDIM #### [facility] [address] [place] [address] Dr. Sushila DongPotassium [Moles/Vol]5.6 mmol/LCritically high3.5-5.1The [facility] HospitalComment on above:Performed By: #### DDIM #### [facility] [address] [place] [address] Dr. Sushila DongSodium [Moles/Vol]114 mmol/LCritically lvk380-511Jct [facility] HospitalComment on above:Result Comment: Lipemic Sample, notifiedPerformed By: #### DDIM #### [facility] [address] [place] [address] Dr. Sushila DongUrea nitrogen [Mass/Vol]39.0 mg/dLCritically high7.0-18.0The [facility] HospitalComment on above:Performed By: #### DDIM #### [facility] [address] [place] [address] Dr. Sushila Epstein nitrogen/Creatinine [Mass ratio]14.2 mg/mgNormalThe [facility] HospitalComment on above:Performed By: #### DDIM #### [facility] [address] [place] [address] Dr. Sushila Amaya 47-22-0289UBK Coag (PPP) [Relative time]0.94 {INR} NormalThe [facility] HospitalComment on above:Performed By: #### PT, PTT #### [facility] [address] [place] [address] Dr. Sushila Lloyd GUIDELINESSEE BELOWMarion HospitalComment on above:Result Comment: DESIRED INR: 2.0 - 3.0 CONDITIONS NOT LISTED BELOW 2.5 - 3.5 FOR PROSTHETIC HEART VALVE REPLACEMENT 2.5 - 3.5 RECURRENT THROMBOSIS Performed By: #### PT, PTT #### [facility] [address] [place] [address] Dr. Sushila Morfin Coag (PPP) [Time]10.0 sNormal9.0-11.6The [facility] Comment on above:Performed By: #### PT, PTT #### [facility] [address] [place] [address] Dr. Sushila Howell 75-53-6853vJIU Coag (Bld) [Time]27.1 tUzxtzb30.3-36.2The [facility] HospitalComment on above:Performed By: #### PT, PTT #### [facility] [address] [address] [address] Sushila Zapien 04-37-6528Kakguqdz, High Crhe921 ng/LCritically high 0-22St. Francis HospitalComment on above:Result Comment: High Sensitivity Troponin values cannot be compared with other Troponin methodologies. Previous Alert Value ReportedPerformed By: #### PT, GLYHGB, CDP #### [facility] [address] [place], [place] [id number] Paper Sales Manager: Vincent Sy MDTroponin, High Lmgm059 ng/LCritically high0-22 [facility] [facility] HospitalComment on above:Result Comment: High Sensitivity Troponin values cannot be compared with other Troponin methodologies.Performed By: #### BMP, MG, CBC, PT, PTT #### [facility] [address] [place] [address] Paper Sales Manager: CARLOS ENRIQUE Pereyra MICROSCOPIC ONLYon [id number] SEENNormalNONE SEENOhiohealth Hardin Memorial HospitalComascension st. john hospital on above:Performed By: #### LAI, ERUR #### [facility] [address] [address] [address] Sushila Andrew identified Cx Nom (U)NOT INDICATEDNormalThWooster Community HospitalComment on above:Performed By: #### LAI ERUR #### [facility] [address] [address] [address] Sushila Lazar SEENNormalNONE SEENOhiohealth Hardin Memorial HospitalComascension st. john hospital on above:Performed By: #### LAI, ERUR #### [facility] [address] [place] [address] Dr. Sushila Boudreaux LM Nom (Urine sed)NONE SEENNormalNONE SEENThe Thomas HospitalComment on above:Performed By: #### BLAYNERO, ERUR #### [facility] [address], [place] [address] Dr. Conti ChangEpithelial cells LM Ql (Urine sed)FEWAbnormalNONE SEEN /RAREThe [facility] HospitalComment on above:Performed By: #### BLAYNERO, ERUR #### [facility] [address], [place] [address] Dr. Conti ChangMUCOUSNONE SEENNormalNONE SEENThe [facility] HospitalComment on above:Performed By: #### BLAYNERO, ERUR #### [facility] [address] [id number] [address] Sushila DongHxwsuSVI9-1Zinydnzz1-2Nrn [facility] HospitalComment on above:Performed By: #### LAI, ERUR #### [facility] [address], [place] [address] Dr. Sushila DongWBC2-5AbnormalNONE SEENThe [facility] HospitalComment on above: Performed By: #### BLAYNERO, ERUR #### [facility] [address], [place] [address] Dr. Sushila DongXR CHEST 2 Von [id number] CHEST 2 VCLINICAL HISTORY: Chest pain. COMPARISON: Chest radiograph 08/26/2018. FINDINGS: PA and lateral views of the chest obtained. Cardiomediastinal silhouette is normal. Lungs are clear, no evidence of infiltrate or pleural effusion. No suspicious nodule or mass. No evidence of pneumothorax. No acute bony abnormality. IMPRESSION: No acute abnormality. Electronically authenticated by: LION ZHU Date: 2022-05-23 02:59[facility] with Auto Differentialon [id number] Eos #0.10[facility] HEALTHAbsolute Lymph #2.30[facility] HEALTHAbsolute Menard # 0.80[facility] HEALTHBasophils (Bld) [#/Vol]0.00 10*3/uLBON [facility] HEALTHBasophils/100 WBC (Bld)1 %0 - 2 %[facility] HEALTHEosinophils/100 WBC (Bld)2 %1 - 4 %[facility] HEALTHHematocrit (Bld) [Volume fraction] 40.3 %Low41 - 53 %[facility] HEALTHHemoglobin (Bld) [Mass/Vol]13.5 g/dL 13.5 - 17.5 g/dLBON SECSAVO[facility] HEALTHInterpretation and review of laboratory resultsAbnormalBON SECSA[facility] HEALTHLymphocytes/100 WBC (Bld)32 %24 - 44 %BON [facility]PITALH (RBC) [Entitic mass]28.2 pg26 - 34 pgBON SECOURS [facility] HOSPITALHC (RBC) [Mass/Vol]33.6 g/dL31 - 37 g/dLBON SECOHIOHEALTH GRADY MEMORIAL HOSPITALV (RBC) [Entitic vol]84.1 fL80 - 100 fLBON SECOURS [facility] HEALTHMonocytes/100 WBC (Bld)11 %2 - 11 %[facility] SECSAVOY MEDICAL CENTER HEALTHPlatelet distribution width (Bld) [Ratio]13.9 %12.5 - 15.4 %[facility] SECSA[facility] HEALTHPlatelet mean volume (Bld) [Entitic vol]7.2 fL6 - 12 fLBON [facility]OURS [facility]ITE [facility]OS[facility]ITAL HEALTHPlatelets (Bld) [#/Vol]256 10*3/uLBON [facility] HEALTHRBC (Bld) [#/Vol]4.79 10*6/uL4.5 - 5.9 m/uLBON [facility] HOSPITALSegmented neutrophils/100 WBC (Bld)54 %36 - 66 %BON [facility] HEALTHSegs Absolute3.90B[facility] HEALTHWBC (Bld) [#/Vol]7.1 10*3/uLBON [facility] SECSA[facility] HEALTHComprehensive Metabolic Panelon [id number] [Mass/Vol]4.3 g/dL3.5 - 5.2 g/dLBON SECSA[facility] HEALTHAlbumin/Globulin [Mass ratio]1.3 {ratio}1 - 2.5BON SECSAVO[facility] MED[facility] CENTER HEALTHALP (Bld) [Catalytic activity/Vol]85 U/L40 - 129 U/LBON SECSA[facility] HEALTHALT [Catalytic activity/Vol]36 U/L5 - 41 U/LBON SECMERCY [facility] ST[facility] CHARLES HOSPITALAnion gap [Moles/Vol]8 mmol/LLow9 - 17 mmol/LBON SECOURS [facility] GOOD SAMARITAN HOSPITALY HEALTHAST [Catalytic activity/Vol]22 U/LNINF - 40 U/LBON SECSUM[facility]ICAL CENTERY HEALTHBilirubin [Mass/Vol]0.44 mg/dL0.3 - 1.2 mg/dLBON SECSAVO[facility] HEALTHCalcium [Mass/Vol]10.5 mg/dLHigh8.6 - 10.4 mg/dLBON SECSA[facility] HEALTHChloride [Moles/Vol]106 mmol/L98 - 107 mmol/LBON [facility] HEALTHCO2 [Moles/Vol]23 mmol/L20 - 31 mmol/LBON [facility] HEALTHCreatinine [Mass/Vol]1.46 mg/dLHigh0.7 - 1.2 mg/dLBON SECMERCY HEALTH ST. CHARLES HOSPITALFree PSA/Total PSA [Mass fraction]7.7 g/dL6.4 - 8.3 g/dLBON [facility] SchedulicityGFR >6060 - PINF mL/minBON [facility] HEALTHGFR Non- Ivdrymak26 mL/dueJco17 - PINF mL/minBON [facility] HEALTHGFR/1.73 sq M.predicted MDRD (S/P/Bld) [Vol rate/Area]BON [facility] HOSPITALComment on above:Average GFR for 30-39 years old: 107 mL/min/1.73sq m Chronic Kidney Disease: <60 mL/min/1.73sq m Kidney failure: <15 mL/min/1.73sq m eGFR calculated using average adult body mass. Additional eGFR calculator available at: http://www.[employer].Qivivo/multiple_crcl_2012.htm Glucose [Mass/Vol]96 mg/dL70 - 99 mg/dLBON [facility] HOSPITALInterpretation and review of laboratory resultsAbnormalBON [facility] HEALTHPotassium [Moles/Vol]5.4 mmol/LHigh3.7 - 5.3 mmol/LBON [facility] HEALTHSodium [Moles/Vol]137 mmol/L135 - 144 mmol/LBON [facility] HEALTHUrea nitrogen (BldV) [Mass/Vol]21 mg/dLHigh6 - 20 mg/dLBON SEC[facility]RS [facility] SAMARIT[facility] HOSPITALY HEALTHBON [facility]OS[facility]ITALY HEALTHAlbuminon [id number] [Mass/Vol]4.2 g/dL3.5 - 5.2 g/dLBON SEC[facility] HOSPITALY HEALTHBasic Metabolic Panelon [id number] gap [Moles/Vol]11 mmol/L9 - 17 mmol/LBON [facility] HEALTHCalcium [Mass/Vol]11.5 mg/dLHigh8.6 - 10.4 mg/dLB[facility] HEALTHChloride [Moles/Vol]107 mmol/L98 - 107 mmol/L [facility] HOSPITALY HEALTHCO2 [Moles/Vol]21 mmol/L20 - 31 mmol/LBON SECOURS [facility] HOSPITALY HEALTHCreatinine [Mass/Vol]1.47 mg/dLHigh0.7 - 1.2 mg/dLBON [facility] SAMARIT[facility] HOSPITALY HEALTH GFR >6060 - PINF mL/minB[facility] HEALTHGFR Non- Khfomwea83 mL/oygDng40 - PINF mL/minB[facility] HEALTHGlucose [Mass/Vol]90 mg/dL70 - 99 mg/dLB[facility] HEALTHPotassium [Moles/Vol]4.6 mmol/L3.7 - 5.3 mmol/LBON [facility] HEALTHSodium [Moles/Vol]139 mmol/L135 - 144 mmol/L [facility] HOSPITALY HEALTHUrea nitrogen (BldV) [Mass/Vol]27 mg/dLHigh6 - 20 mg/dL [facility] HOSPITALY HEALTHUrea nitrogen/Creatinine (Bld) [Mass ratio]189 - 20B[facility] HOSPITALY HEALTHCBCon 15-56-8915Wfcxrfhmpl (Bld) [Volume fraction]42.5 %40.7 - 50.3 %[facility] HOSPITALY HEALTHHemoglobin (Bld) [Mass/Vol]14.1 g/dL13 - 17 g/dL [facility]OSPITALH (RBC) [Entitic mass]28.1 pg25.2 - 33.5 pgBON SECOURS [facility] HOSPITALHC (RBC) [Mass/Vol]33.2 g/dL28.4 - 34.8 g/dLBON SEC[facility]RS [facility]AR[facility] HOSPITALY HEALTHMCV (RBC) [Entitic vol]84.8 fL82.6 - 102.9 fLCARILION ROANOKE COMMUNITY HOSPITALNRBC Automated0.00.0 per 100 WBCBON [facility] HOSPITALPlatelet distribution width (Bld) [Ratio]12.7 %11.8 - 14.4 %BON [facility] HOSPITALPlatelet mean volume (Bld) [Entitic vol]9.3 fL8.1 - 13.5 fLCARILION ROANOKE COMMUNITY HOSPITALPlatelets (Bld) [#/Vol]257 10*3/uLBON [facility] METHODIST HOSPITALRBC (Bld) [#/Vol]5.01 10*6/uL4.21 - 5.77 m/uLCARILION ROANOKE COMMUNITY HOSPITALWBC (Bld) [#/Vol]6.3 10*3/uLBON [facility] HOSPITALCalcium, Ionizedon 83-95-2182Mebaobq, Ionized1.6 mmol/LHigh1.13 - 1.33 mmol/LBON [facility] HOSPITALInterpretation and review of laboratory resultsAbnoMilbank Area Hospital / [facility] - Chemistry and Chemistry - challengeon [id number]/1.73 sq M.predicted MDRD (S/P/Bld) [Vol rate/Area]CAR[facility] COMMUNITY HOSPITALComment on above:Average GFR for 30-39 years old: 107 mL/min/1.73sq m Chronic Kidney Disease: <60 mL/min/1.73sq m Kidney failure: <15 mL/min/1.73sq m eGFR calculated using average adult body mass. Additional eGFR calculator available at: http://www.[employer].Qivivo/multiple_crcl_2012.htm Stage 1: Some kidney damage normal GFR Stage 2: Mild kidney damage GFR 60-89 Stage 3: Moderate kidney damage GFR 30-59 Stage 4: Severe kidney damage GFR 15-29 Stage 5: Severe kidney damage GFR <15 ESRD - chronic treatment by dialysis or transplant No Panel Informationon [id number] and review of laboratory results AbnormalBON [facility]AP[facility] HOSPITALPTH, [place] 09-28-2021 Interpretation and review of laboratory resultsAbnormRetreat Doctors' Hospital Pth Ihjlcj343.2 pg/mUCzgp59 - 65 pg/mLBON [facility] Memorial Hospitalment on above: SAMPLES FROM PATIENTS ROUTINELY RECEIVING HIGH DOSE BIOTIN THERAPY MAY SHOW FALSELY DEPRESSED RESULTS. ADDITIONAL INFORMATION MAY BE REQUIRED FOR DIAGNOSIS. BON [facility] HOSPITALPhosphoruson [id number] [Mass/Vol]2.4 mg/dLLow 2.5 - 4.5 mg/dLBON [facility] HOSPITALProtein / creatinine ratio, urineon [id number], Ur112.4 mg/dL39 - 259 mg/dLBON [facility] Interpretation and review of laboratory resultsAbnoCarilion New River [facility] Protein (U) [Mass/Vol]95 mg/dLBON [facility] Hospitalment on above:No normal range established.Urine Total Protein Creatinine Ratio0.83Xagt5 - 0.2BON [facility] HOSPITALBasic Metabolic Panelon 09-17-2021 Anion gap [Moles/Vol]9 mmol/L9 - 17 mmol/LBON [facility] HOSPITALCalcium [Mass/Vol]8.6 mg/dL8.6 - 10.4 mg/dLBON [facility] HOSPITALChloride [Moles/Vol] 111 mmol/LHigh98 - 107 mmol/LBON [facility] METHOD[facility] HOSPITALCO2 [Moles/Vol]21 mmol/L20 - 31 mmol/LBON [facility] HOSPITALCreatinine [Mass/Vol]1.31 mg/dLHigh0.7 - 1.2 mg/dLBON [facility] HOSPITALGFR >6060 - PINF mL/minCARILION ROANOKE COMMUNITY HOSPITALGFR Non->6060 - PINF mL/minCARILION ROANOKE [facility] Glucose [Mass/Vol]98 mg/dL70 - 99 mg/dLBON [facility] HOSPITALInterpretation and review of laboratory resultsAbnormalCARILION ROANOKE COMMUNITY HOSPITALPotassium [Moles/Vol]4.7 mmol/L3.7 - 5.3 mmol/LBON [facility] HOSPITALSodium [Moles/Vol] 141 mmol/L135 - 144 mmol/LBON [facility] METHOD[facility] HOSPITALUrea nitrogen (BldV) [Mass/Vol]15 mg/dL6 - 20 mg/dLBON SECDigital MagicsY HEALTHUrea nitrogen/Creatinine (Bld) [Mass ratio]119 - 20BON [facility] Laboratory - Chemistry and Chemistry - challengeon [id number]/1.73 sq M.predicted MDRD (S/P/Bld) [Vol rate/Area]BON [facility] - GILBERTGood Travel Software TRIHEALTH GOOD SAMARITAN HOSPITALANF Technology [facility] HOSPITALComment on above:Average GFR for 30-39 years old: 107 mL/min/1.73sq m Chronic Kidney Disease: <60 mL/min/1.73sq m Kidney failure: <15 mL/min/1.73sq m eGFR calculated using average adult body mass. Additional eGFR calculator available at: http://www.[employer]./multiple_crcl_2011.htm Stage 1: Some kidney damage normal GFR Stage 2: Mild kidney damage GFR 60-89 Stage 3: Moderate kidney damage GFR 30-59 Stage 4: Severe kidney damage GFR 15-29 Stage 5: Severe kidney damage GFR <15 ESRD - chronic treatment by dialysis or transplant CBC with Auto Differentialon [id number] Eos #0.22[facility] SchedulicityAbsolute Immature Granulocyte<0.03[facility] HEALTHAbsolute Lymph # 2.23[facility] HEALTHAbsolute Menard #0.70[facility] HEALTHBasophils (Bld) [#/Vol]0.06 10*3/uLB[facility] SchedulicityBasophils/100 WBC (Bld)1 %0 - 2 %[facility] [employer] SchedulicityEosinophils/100 WBC (Bld)3 %1 - 4 %[facility] LabourNetHematocrit (Bld) [Volume fraction]38.9 %Low40.7 - 50.3 %[facility] SchedulicityHemoglobin (Bld) [Mass/Vol]12.4 g/dLLow13.0 - 17.0 g/dLB[facility] SchedulicityImmature granulocytes/100 WBC (Bld)0 %0BON SECCurexo Technology Interpretation and review of laboratory resultsAbnormalBON SECGood Travel Software [facility] HOSPITALTinkoff Digital Lymphocytes/100 WBC (Bld)32 %24 - 43 %[facility] HOSPITALTinkoff DigitalMCH (RBC) [Entitic mass]28.6 pg25.2 - 33.5 pgBON [...] 10*6/uL4.21 - 5.77 m/uLBON [facility]CY HEALTHSeg Ejqgtbbmhih64 %36 - 65 %[facility] HEALTHSegs Absolute3.69[facility] HEALTHWBC (Bld) [#/Vol]6.9 10*3/uLB[facility] HEALTHB[facility] HEALTHBasic Metabolic Panelon [id number] gap [Moles/Vol]13 mmol/L9 - 17 mmol/LBON [facility] HEALTHCalcium [Mass/Vol]8.7 mg/dL8.6 - 10.4 mg/dLB[facility] HEALTHChloride [Moles/Vol]104 mmol/L98 - 107 mmol/LBON [facility] HEALTHCO2 [Moles/Vol]20 mmol/L20 - 31 mmol/LB[facility] HEALTHCreatinine [Mass/Vol] 1.82 mg/dLHigh0.70 - 1.20 mg/dLB[facility] HEALTHGFR Zpufacue36 mL/minLow>60[facility] HEALTHGFR Non- Tianpnri65 mL/minLow>60[facility] HEALTHGFR/1.73 sq M.predicted MDRD (S/P/Bld) [Vol rate/Area][facility] HEALTHGlucose [Mass/Vol]167 mg/iCSpef19 - 99 mg/dLBON [facility] HOSPITALInterpretation and review of laboratory resultsAbnormalBON [facility] HOSPITALPotassium [Moles/Vol]3.6 mmol/LLow3.7 - 5.3 mmol/LBON SECMERCY HEALTH ST. CHARLES HOSPITALSodium [Moles/Vol]137 mmol/L135 - 144 mmol/LBON [facility] METHODIST HOSPITALUrea nitrogen (BldV) [Mass/Vol]30 mg/dLHigh6 - 20 mg/dLBON [facility]ITALBON [facility]PITALCBC with Auto Differentialon [id number] Eos #0.08BON [facility] HOSPITALAbsolute Immature Granulocyte0.04BON [facility] Absolute Lymph #1.41BON [facility]ITALAbsolute Menard #0.92BON [facility] HOSPITALBasophils (Bld) [#/Vol]0.06 10*3/uLBON [facility]PITALBasophils/100 WBC (Bld)1 %0 - 2 %[facility]PITALEosinophils/100 WBC (Bld)1 %1 - 4 % [facility] HOSPITALHematocrit (Bld) [Volume fraction]38.5 %Low40.7 - 50.3 % [facility]OSPITALHemoglobin (Bld) [Mass/Vol]12.9 g/dLLow13.0 - 17.0 g/dL [facility]OSPITALImmature granulocytes/100 WBC (Bld)1 %Ssqa3RJX [facility]OSPITALInterpretation and review of laboratory resultsAbnormalBON [facility] HOSPITALLymphocytes/100 WBC (Bld)16 %Low24 - 43 %[facility] SYSTEMH (RBC) [Entitic mass]28.9 pg25.2 - 33.5 pgWELLMONT HEALTH SYSTEMHC (RBC) [Mass/Vol]33.5 g/dL28.4 - 34.8 g/dLBON [facility]PITALV (RBC) [Entitic vol]86.1 fL82.6 - 102.9 fLCARILION ROANOKE COMMUNITY HOSPITALMonocytes/100 WBC (Bld)11 %3 - 12 %[facility] SECDigital MagicsY HEALTHNRBC Automated0.00.0 per 100 WBCBON [facility] MERCY HEALTHPlatelet distribution width (Bld) [Ratio]12.4 %11.8 - 14.4 %[facility] HEALTHPlatelet mean volume (Bld) [Entitic vol]10.5 fL8.1 - 13.5 fLBON [facility] MERCY HEALTHPlatelets (Bld) [#/Vol]316 10*3/uLBON [facility] RBC (Bld) [#/Vol]4.47 10*6/uL4.21 - 5.77 m/uLBON [facility] MERCY HEALTHSeg Ywvnocrxqhy64 %High36 - 65 %[facility] HEALTHSegs Absolute6.22[facility] HEALTHWBC (Bld) [#/Vol]8.7 10*3/uLBON [facility]CY HEALTHBON [facility] Global ActiveY HEALTHCT CHEST WO CONTRASTon [id number] RIS CONSOLIDATEDMHPN RIS CONSOLIDATEDBON [facility] Work Phone: radiology Study observation (narrative)BON [employer] Work Phone: cT CHEST WO CONTRASTOrdered By: Salty Gerard on [id number] [facility] Work Phone: afp Tumor Markeron [id number] (Alpha Fetoprotein) 1.5 ug/L<8.4BON [facility] Global Active[facility] HEALTHB[facility] Global ActiveY HEALTHBasic Metabolic Panel w/ Reflex to MGon [id number] gap [Moles/Vol]10 mmol/L9 - 17 mmol/LBON [facility] HEALTHCalcium [Mass/Vol]10.4 mg/dL8.6 - 10.4 mg/dLBON [facility] HEALTHChloride [Moles/Vol]106 mmol/L98 - 107 mmol/LBON [facility] HEALTHCO2 [Moles/Vol]26 mmol/L20 - 31 mmol/LBON [facility] HEALTHCreatinine [Mass/Vol]1.84 mg/dLHigh0.70 - 1.20 mg/dLBON [facility] MERCY HEALTHGFR Zlyguryl50 mL/minLow>60B[facility] HEALTHGFR Non- Sqhorjsw36 mL/min Low>60B[facility] HEALTHGFR/1.73 sq M.predicted MDRD (S/P/Bld) [Vol rate/Area]BON [facility] HOSPITALGlucose [Mass/Vol]83 mg/dL70 - 99 mg/dLBON SECMER[facility] HOSPITALInterpretation and review of laboratory resultsAbnormalBON [facility]ITALPotassium [Moles/Vol]4.0 mmol/L3.7 - 5.3 mmol/LBON SEC[facility] CHAR[facility] HOSPITALSodium [Moles/Vol]142 mmol/L135 - 144 mmol/LBON [facility] Urea nitrogen (BldV) [Mass/Vol]39 mg/dLHigh6 - 20 mg/dLBON SEC[facility] BON [facility]OS[facility]ITALCBC with Auto Differentialon [id number] Eos # 0.27BON [facility]OSPITALAbsolute Immature Granulocyte0.04B[facility]OSPITALAbsolute Lymph #2.10B[facility]OSPITALAbsolute Menard #0.67BON [facility] HOSPITALBasophils (Bld) [#/Vol]0.07 10*3/uLBON [facility] Basophils/100 WBC (Bld)1 %0 - 2 %[facility]PITALEosinophils/100 WBC (Bld)3 %1 - 4 %[facility] HOSPITALHematocrit (Bld) [Volume fraction]41.5 % 40.7 - 50.3 %[facility] HOSPITALHemoglobin (Bld) [Mass/Vol]13.3 g/dL13.0 - 17.0 g/dLBON SECMER[facility] HOSPITALImmature granulocytes/100 WBC (Bld)1 %Swkr9CEO [facility]OS[facility]ITALInterpretation and review of laboratory resultsAbnormalBON [facility] HOSPITALLymphocytes/100 WBC (Bld)24 %24 - 43 %[facility] SYSTEMH (RBC) [Entitic mass]28.5 pg25.2 - 33.5 pgBON [facility] HOSPITALHC (RBC) [Mass/Vol]32.0 g/dL28.4 - 34.8 g/dLBON SEC[facility]RS [facility] HOSPITALY HEALTHMCV (RBC) [Entitic vol]88.9 fL82.6 - 102.9 fLBON SEC[facility]RS [facility] HOSPITALY HEALTHMonocytes/100 WBC (Bld)8 %3 - 12 %[facility] HOSPITALY HEALTHNRBC Automated0.00.0 per 100 WBCBON [facility]CY HEALTHPlatelet distribution width (Bld) [Ratio]12.3 %11.8 - 14.4 % [facility] HEALTHPlatelet mean volume (Bld) [Entitic vol]10.1 fL8.1 - 13.5 fLBON SECOURS [facility] HOSPITALY HEALTHPlatelets (Bld) [#/Vol]370 10*3/uLBON [facility] HOSPITALY HEALTHRBC (Bld) [#/Vol]4.67 10*6/uL4.21 - 5.77 m/uLBON [facility] HOSPITALY HEALTHSeg Uluzfuztsje40 %36 - 65 %[facility] HEALTHSegs Absolute5.44B[facility] HOSPITALY HEALTHWBC (Bld) [#/Vol]8.6 10*3/uLBON [facility] HEALTHBON [facility] HOSPITALY HEALTHVitamin D 25 Hydroxyon 80-81-7290Ztshvrqxfeqfcb and review of laboratory resultsAbnormalBON SECOURS [facility]AN HOSPITALY HEALTHVit D, 25-Pcshzyc75.9 ng/mL Low>29.9BON [facility] HEALTHBON SEC[facility]RS [facility] SAMARITAN HOSPITALY HEALTHBasic Metabolic Panel w/ Reflex to MGon 01-32-1887Rdrji gap [Moles/Vol]13 mmol/L9 - 17 mmol/LBON [facility] Global Active[facility] HEALTHCalcium [Mass/Vol]10.7 mg/dLHigh8.6 - 10.4 mg/dLBON [facility] HEALTHChloride [Moles/Vol]100 mmol/L98 - 107 mmol/LBON SEC[facility] HOSPITALY HEALTHCO2 [Moles/Vol]26 mmol/L20 - 31 mmol/LBON [facility] HEALTHCreatinine [Mass/Vol] 2.12 mg/dLHigh0.70 - 1.20 mg/dLBON [facility]CY HEALTHGFR Afmcpvat52 mL/minLow>60B[facility] HEALTHGFR Non- Dnsteyze90 mL/minLow>60B[facility] Global Active[facility] HEALTHGFR/1.73 sq M.predicted MDRD (S/P/Bld) [Vol rate/Area]BON [facility] HOSPITALGlucose [Mass/Vol]110 mg/cZQeio68 - 99 mg/dLBON SEC[facility] HOSPITALInterpretation and review of laboratory resultsAbnormalBON SEC[facility] HOSPITALPotassium [Moles/Vol]3.6 mmol/LLow3.7 - 5.3 mmol/LBON [facility]OSPITALSodium [Moles/Vol]139 mmol/L135 - 144 mmol/LBON [facility] HOSPITALUrea nitrogen (BldV) [Mass/Vol]41 mg/dLHigh6 - 20 mg/dLBON [facility] HOSPITALBON SEC[facility] HOSPITALCBC with Auto Differentialon [id number] Eos #0.26BON [facility] HOSPITALAbsolute Immature Granulocyte0.03BON [facility] Absolute Lymph #3.18BON [facility]OSPITALAbsolute Menard #0.97BON [facility] HOSPITALBasophils (Bld) [#/Vol]0.08 10*3/uLBON [facility] HOSPITALBasophils/100 WBC (Bld)1 %0 - 2 %BON [facility]OS[facility]ITALEosinophils/100 WBC (Bld)3 %1 - 4 % [facility]OSPITALHematocrit (Bld) [Volume fraction]40.3 %Low40.7 - 50.3 % [facility]OSPITALHemoglobin (Bld) [Mass/Vol]13.0 g/dL13.0 - 17.0 g/dLBON SEC[facility] HOSPITALImmature granulocytes/100 WBC (Bld)0 %0BON SEC[facility] HOSPITALInterpretation and review of laboratory resultsAbnormalBON [facility] HOSPITALLymphocytes/100 WBC (Bld)34 %24 - 43 %[facility] SYSTEMH (RBC) [Entitic mass]28.4 pg25.2 - 33.5 pgBON [facility]OSPITALHC (RBC) [Mass/Vol] 32.3 g/dL28.4 - 34.8 g/dLBON SECOHIOHE[facility] GRADY [facility]IAL HOSPITALV (RBC) [Entitic vol]88.2 fL 82.6 - 102.9 fLBON [facility] HEALTHMonocytes/100 WBC (Bld)11 %3 - 12 %[facility] SECGood Travel Software [facility] HEALTHNRBC Automated0.00.0 per 100 WBCSMYTH COUNTY COMMUNITY [facility] HEALTH Platelet distribution width (Bld) [Ratio]12.2 %11.8 - 14.4 %B[facility] HOSPITALY HEALTHPlatelet mean volume (Bld) [Entitic vol]11.5 fL8.1 - 13.5 fLBON [facility] HEALTHPlatelets (Bld) [#/Vol]401 10*3/uLBON [facility] SAMARITAN HOSPITALY HEALTHRBC (Bld) [#/Vol]4.57 10*6/uL4.21 - 5.77 m/uLBON SECMAR[facility] HEALTHSeg Otsqfkufvnw28 %36 - 65 %[facility] SEC[facility] HEALTHSegs Absolute4.72BON SECMAR[facility] HEALTHWBC (Bld) [#/Vol]9.2 10*3/uLBON SECMER[facility] CHARLES HOSPITALBON SECSAVO[facility] HEALTHSPECIMEN REJECTIONon [id number] TestBMPXBON SECSA[facility] HEALTHReason for RejectionUnable to perform testing: Specimen hemolyzed.[facility] Specimen source Nom (Unsp spec).[facility]CH[facility] SECCLEVELAND [facility]INIC [facility] SEC[facility] HEALTHOrdered TestBMPXBON SECOURS [facility] HOSPITALY HEALTHReason for RejectionUnable to perform testing: Specimen hemolyzed.[facility] SECDigital MagicsMERCY HEALTH ALLEN HOSPITALSpecimen source Nom (Unsp spec).[facility]CH[facility] SECCLEVELAND CLINIC MERCY HOSPITAL SECMERCY HEALTH ST. CHARLES HOSPITALBasic Metabolic Panel w/ Reflex to MGon [id number] gap [Moles/Vol]14 mmol/L9 - 17 mmol/L [facility] HEALTHCalcium [Mass/Vol]10.4 mg/dL8.6 - 10.4 mg/dLBON SECOURS [facility] SAM[facility]AN HOSPITALY HEALTHChloride [Moles/Vol]102 mmol/L98 - 107 mmol/LBON [facility] SAM[facility] HOSPITALY HEALTHCO2 [Moles/Vol]23 mmol/L20 - 31 mmol/LBON [facility] SAM[facility] HOSPITALY HEALTHCreatinine [Mass/Vol]1.82 mg/dLHigh0.70 - 1.20 mg/dLBON SECSUM[facility]ERY HEALTHGFR Oncuacdl49 mL/minLow>60B[facility] HEALTHGFR Non- Yhvmkycx97 mL/min Low>60B[facility] HEALTHGFR/1.73 sq M.predicted MDRD (S/P/Bld) [Vol rate/Area][facility] HEALTHGlucose [Mass/Vol]141 mg/cNCwub04 - 99 mg/dL B[facility] HEALTHInterpretation [...] mg/dLHigh0.70 - 1.20 mg/dLBON [facility] HEALTHGFR Uwtcksbu51 mL/minLow>60B[facility] HEALTHGFR Non- 39 mL/minLow>60B[facility] HEALTHGFR/1.73 sq M.predicted MDRD (S/P/Bld) [Vol rate/Area][facility] HEALTHGlucose [Mass/Vol]130 mg/lFUrlf19 - 99 mg/dLBON [facility] HEALTHInterpretation and review of laboratory results AbnormalBON [facility] HEALTHPotassium [Moles/Vol]3.2 mmol/LLow3.7 - 5.3 mmol/LBON [facility] HEALTHSodium [Moles/Vol]144 mmol/L135 - 144 mmol/LBON [facility] HEALTHUrea nitrogen (BldV) [Mass/Vol]40 mg/dLHigh6 - 20 mg/dLBON [facility] MERCY HEALTHBON [facility] HEALTHC-Reactive Proteinon [id number] [Mass/Vol]29.4 mg/LHigh0.0 - 5.0 mg/LBON [facility]ITALInterpretation and review of laboratory resultsAbnormalBON [facility]PITALCBC with Auto Differentialon [id number] Eos #0.12BON [facility]OS[facility]ITALAbsolute Immature Granulocyte0.04BON [facility]ITALAbsolute Lymph # 2.32BON [facility]ITALAbsolute Menard #1.03BON [facility] HOSPITALBasophils (Bld) [#/Vol]0.06 10*3/uLBON [facility]OS[facility]ITALBasophils/100 WBC (Bld)1 %0 - 2 %[facility]OS[facility]ITALEosinophils/100 WBC (Bld)1 %1 - 4 %[facility] HOSPITALHematocrit (Bld) [Volume fraction]40.7 %40.7 - 50.3 %[facility] HOSPITALHemoglobin (Bld) [Mass/Vol]12.7 g/dLLow13.0 - 17.0 g/dLBON [facility]OS[facility]ITALImmature granulocytes/100 WBC (Bld)0 %0BON [facility] Interpretation and review of laboratory resultsAbnormalBON [facility] Lymphocytes/100 WBC (Bld)23 %Low24 - 43 %[facility] SYSTEMH (RBC) [Entitic mass]28.6 pg25.2 - 33.5 pgWELLMONT HEALTH SYSTEMHC (RBC) [Mass/Vol] 31.2 g/dL28.4 - 34.8 g/dLBON [facility]PITALV (RBC) [Entitic vol]91.7 fL 82.6 - 102.9 fLCARILION ROANOKE COMMUNITY HOSPITALMonocytes/100 WBC (Bld)10 %3 - 12 %[facility] HOSPITALNRBC Automated0.00.0 per 100 WBCCARILION ROANOKE COMMUNITY HOSPITAL Platelet distribution width (Bld) [Ratio]12.7 %11.8 - 14.4 %[facility] HOSPITALPlatelet mean volume (Bld) [Entitic vol]10.7 fL8.1 - 13.5 fLBON SECMARIA ELENA [facility] SAMAR[facility]AN HOSPITALY HEALTHPlatelets (Bld) [#/Vol]417 10*3/uLBON SECMARIA ELENA [facility] SAMARITAN HOSPITALY HEALTHRBC (Bld) [#/Vol]4.44 10*6/uL4.21 - 5.77 m/uLBON SECMARIA ELENA [facility] GOOD SAMARITAN HOSPITALJed HEALTHSeg Otrotzchtan22 %36 - 65 %BON [facility]MAR[facility] HEALTHSegs Absolute6.35BON SECMARIA ELENA [facility] GOOD SAMARITAN HOSPITALJed HEALTHWBC (Bld) [#/Vol]9.9 10*3/uLBON SECMARIA ELENA [facility] GOOD SAMARITAN HOSPITALY HEALTHCH[facility] SECMARIA ELENA [facility] HEALTHCOVID- 19, Rapidon [id number]-CoV-2 (COVID-19) RNA VIK+probe Ql (Unsp spec)Not detectedNot DetectedBON SECSAVO[facility] HEALTHSpecimen Description.NASOPHARYNGEAL SWABBON SECCLEVELAND CLINIC [facility]ITAL SECMERCY HE[facility] ST[facility] CHARLES HOSPITALCardiolipin antibody, IgAon 90-14-2265Ylrvrsbhucoyltr IgA7.6BON [facility] HEALTH Magnesiumon 77-91-7486Tedhxpwqi [Mass/Vol]2.3 mg/dL1.6 - 2.6 mg/dLBON [facility] PARATHYORID W SPECTon [id number] RIS CONSOLIDATEDPN RIS [facility] Work Phone: radiology Study observation (narrative)[facility] VPEP Schedulicity Work Phone: nm PARATHYORID W SPECTOrdered By: Lyndon Magaña on [id number] [facility] HEALTH Work Phone: No Panel Informationon [id number] RIS CONSOLIDATED PN RIS CONSOLIDATEDCHANDLER REGIONAL [facility] SECSA[facility] HEALTH Work Phone: bON [facility] HEALTH Work Phone: radiology Study observation (narrative)[facility] VPEP Schedulicity Work Phone: sedimentation Rateon [id number] and review of laboratory resultsAbnormalBON SECSUMMIT [facility]IFIC MEDICAL CENTERY HEALTHSed Ypnd86XeipVQY [facility]OSPITALTSH with Reflexon [id number] Qn 0.82 m[IU]/LBON [facility] HOSPITALBasic Metabolic Panel w/ Reflex to MGon [id number] gap [Moles/Vol]12 mmol/L9 - 17 mmol/LBON [facility] HEALTHCalcium [Mass/Vol]10.3 mg/dL8.6 - 10.4 mg/dLBON [facility] HEALTHChloride [Moles/Vol]106 mmol/L98 - 107 mmol/LBON [facility] HEALTHCO2 [Moles/Vol]27 mmol/L20 - 31 mmol/LBON [facility]OSPITALCreatinine [Mass/Vol]1.99 mg/dLHigh0.70 - 1.20 mg/dLBON [facility] HOSPITALGFR Pppmfafn84 mL/minLow>60BON [facility]OSPITALGFR Non- Zpvawnzl48 mL/min Low>60BON [facility]OSPITALGFR/1.73 sq M.predicted MDRD (S/P/Bld) [Vol rate/Area][facility]OSPITALGlucose [Mass/Vol]124 mg/fREtlq02 - 99 mg/dL [facility]OSPITALInterpretation and review of laboratory resultsAbnormal BON [facility]OS[facility]ITALPotassium [Moles/Vol]3.5 mmol/LLow3.7 - 5.3 mmol/LBON [facility] HOSPITALSodium [Moles/Vol]145 mmol/CTvfn959 - 144 mmol/LBON [facility] HOSPITALUrea nitrogen (BldV) [Mass/Vol]42 mg/dLHigh6 - 20 mg/dLBON [facility] CITY HOSPITALAnion gap [Moles/Vol]14 mmol/L9 - 17 mmol/L BON [facility] HOSPITALCalcium [Mass/Vol]10.5 mg/dLHigh8.6 - 10.4 mg/dLBON [facility] HEALTHChloride [Moles/Vol]110 mmol/LHigh98 - 107 mmol/LBON [facility] HOSPITALCO2 [Moles/Vol]26 mmol/L20 - 31 mmol/LBON [facility] Creatinine [Mass/Vol]1.74 mg/dLHigh0.70 - 1.20 mg/dLBON [facility] HEALTHGFR Hyprrmdj97 mL/minLow>60[facility] HEALTHGFR Non- 44 mL/minLow>60BON [facility]OSPITALGFR/1.73 sq M.predicted MDRD (S/P/Bld) [Vol rate/Area]BON [facility] HOSPITALGlucose [Mass/Vol]121 mg/rVCmba31 - 99 mg/dLBON SECMER[facility] HOSPITALInterpretation and review of laboratory results AbnormalBON [facility] HOSPITALPotassium [Moles/Vol]3.9 mmol/L3.7 - 5.3 mmol/L BON SECMER[facility] CHARLES HOSPITALSodium [Moles/Vol]150 mmol/XImdo804 - 144 mmol/LBON [facility] HOSPITALUrea nitrogen (BldV) [Mass/Vol]46 mg/dLHigh6 - 20 mg/dLBON SEC[facility] CHARLES HOSPITALBON [facility]OS[facility]ITALCBC with Auto Differentialon 63-55-7685Wpklwjnr Eos #0.05BON [facility] HOSPITALAbsolute Immature Granulocyte0.04BON [facility]OSPITALAbsolute Lymph #1.59BON [facility]OSPITALAbsolute Menard #0.83BON [facility] HOSPITALBasophils (Bld) [#/Vol]0.06 10*3/uLBON [facility] HOSPITALBasophils/100 WBC (Bld)1 %0 - 2 %[facility]OSPITALEosinophils/100 WBC (Bld)1 %1 - 4 %[facility] Hematocrit (Bld) [Volume fraction]40.8 %40.7 - 50.3 %[facility] Hemoglobin (Bld) [Mass/Vol]13.3 g/dL13.0 - 17.0 g/dLBON [facility] Immature granulocytes/100 WBC (Bld)0 %0[facility]OSPITALInterpretation and review of laboratory resultsAbnormalBON [facility] HOSPITALLymphocytes/100 WBC (Bld)16 %Low24 - 43 %[facility] (RBC) [Entitic mass]28.7 pg 25.2 - 33.5 pgBON [facility]RS MERCY HEALTHMCHC (RBC) [Mass/Vol]32.6 g/dL28.4 - 34.8 g/dLBON [facility] HOSPITALMCV (RBC) [Entitic vol]88.1 fL82.6 - 102.9 fLCARILION ROANOKE COMMUNITY HOSPITALMonocytes/100 WBC (Bld)9 %3 - 12 %[facility] NRBC Automated0.00.0 per 100 WBCBON [facility] HOSPITALPlatelet distribution width (Bld) [Ratio]12.5 %11.8 - 14.4 %BON [facility] HOSPITALPlatelet mean volume (Bld) [Entitic vol]10.0 fL8.1 - 13.[address] CHARLES HOSPITALPlatelets (Bld) [#/Vol]428 10*3/uLBON SECMER[facility] CHARLES HOSPITALRBC (Bld) [#/Vol]4.63 10*6/uL 4.21 - 5.77 m/uLBON [facility] METHOD[facility] HOSPITALSeg Gynwahnsrnu06 %High36 - 65 %BON [facility] HOSPITALSegs Absolute7.15BON [facility] HOSPITALWBC (Bld) [#/Vol] 9.7 10*3/uLBON [facility] CITY HOSPITALMagnesiumon 19-75-8541Anmsljyan [Mass/Vol]2.4 mg/dL1.6 - 2.6 mg/dLBON [facility] BON [facility] HOSPITALPTH, Intact with Ionized Calciumon [id number] [Moles/Vol]1.46 mmol/LHigh1.13 - 1.33 mmol/LBON [facility] Interpretation and review of laboratory resultsAbnormalBON [facility] Pth Imgcdh168.5 pg/qRNasi64.0 - 65.0 pg/mLBON [facility] CITY HOSPITALArterial Blood Gas, POCon [id number] TestPositiveBON [facility] HOSPITALFIO240.0BON [facility] HOSPITALHCO3 (Bld) [Moles/Vol]29.3 mmol/L High21.0 - 28.0 mmol/LBON [facility]OS[facility]ITALModePRVCBON [facility] HOSPITALO2 Device/Flow/%Adult VentilatorBON PL[facility]OSPITALY HEALTHOxygen saturation in Blood 98 %94.0 - 98.0 %[facility] oOJ781.2HighBON [facility]OSPITALC pH7.392BON [facility]OSPITALC PO298.0[facility] Positive Base Excess, Fxk1PbhvZZBCARILION ROANOKE COMMUNITY HOSPITALSample SiteRight Radial ArteryCARILION ROANOKE COMMUNITY HOSPITALBasic Metabolic Panel w/ Reflex to MGon 09-06-2021 Anion gap [Moles/Vol]13 mmol/L9 - 17 mmol/LBON [facility] HOSPITALCalcium [Mass/Vol]11.0 mg/dLHigh8.6 - 10.4 mg/dLBON [facility] HOSPITALChloride [Moles/Vol]109 mmol/LHigh98 - 107 mmol/LBON [facility] HOSPITALCO2 [Moles/Vol] 25 mmol/L20 - 31 mmol/LBON [facility]ITALCreatinine [Mass/Vol]1.78 mg/dL High0.70 - 1.20 mg/dLBON [facility]ITALGFR Btrwwgln32 mL/minLow>60 [facility]GFR Non- Ivjfvrio20 mL/minLow>60[facility]ITALGFR/1.73 sq M.predicted MDRD (S/P/Bld) [Vol rate/Area][facility]ITALGlucose [Mass/Vol]121 mg/jILepi71 - 99 mg/dLBON [facility] Interpretation and review of laboratory resultsAbnormalCARILION [facility]OKE [facility] Potassium [Moles/Vol]4.1 mmol/L3.7 - 5.3 mmol/LBON [facility]ITALSodium [Moles/Vol]147 mmol/KArnj555 - 144 mmol/LBON [facility]OSPITALUrea nitrogen (BldV) [Mass/Vol]55 mg/dLHigh6 - 20 mg/dLBON [facility]PITALCBC with Auto Differentialon [id number] Eos #0.22BON [facility]ITALAbsolute Immature Granulocyte<0.03BON [facility] HOSPITALAbsolute Lymph #1.59BON [facility] HOSPITALAbsolute Menard #1.20[facility] Basophils (Bld) [#/Vol]0.06 10*3/uLBON [facility] HEALTHBasophils/100 WBC (Bld)1 %0 - 2 %[facility] HEALTHEosinophils/100 WBC (Bld)2 %1 - 4 %[facility]ON [facility] HOSPITALHematocrit (Bld) [Volume fraction]40.1 %Low40.7 - 50.3 %[facility] HEALTHHemoglobin (Bld) [Mass/Vol]12.8 g/dLLow13.0 - 17.0 g/dLBON SEC[facility] HOSPITALImmature granulocytes/100 WBC (Bld)0 %0BON [facility] HEALTHInterpretation and review of laboratory resultsAbnormalBON [facility] CHAR[facility] HOSPITALLymphocytes/100 WBC (Bld)16 %Low24 - 43 %BON [facility]PITALH (RBC) [Entitic mass]28.8 pg25.2 - 33.5 pgBON [facility]PITALHC (RBC) [Mass/Vol]31.9 g/dL28.4 - 34.8 g/dLBON SECMER[facility] CHAR[facility] HOSPITALMCV (RBC) [Entitic vol]90.1 fL82.6 - 102.9 fLBON [facility] HEALTHMonocytes/100 WBC (Bld)12 %3 - 12 %[facility] HEALTHNRBC Automated0.00.0 per 100 WBCBON [facility] HEALTHPlatelet distribution width (Bld) [Ratio]12.2 %11.8 - 14.4 %[facility]ON [facility] HEALTHPlatelet mean volume (Bld) [Entitic vol]10.3 fL8.1 - 13.5 fLBON [facility] HEALTHPlatelets (Bld) [#/Vol]357 10*3/uLBON [facility] HEALTH RBC (Bld) [#/Vol]4.45 10*6/uL4.21 - 5.77 m/uLBON [facility] HEALTHSeg Fshwotzksxq02 %High36 - 65 %B[facility]Y HEALTHSegs Absolute6.61B[facility] HEALTHWBC (Bld) [#/Vol]9.7 10*3/uLBON [facility]ITALBON [facility] HEALTHNo Panel Informationon [id number] and review of laboratory resultsAbnormalBON [facility] HEALTHBON [facility]OS[facility]ITALY HEALTHPOCT Glucoseon [id number] [Mass/Vol]117 mg/xOEwjx15 - 100 mg/dLBON [facility] HOSPITALBLOOD GAS, VENOUSon [id number] %0 - 5 %[facility] SECSUMMIT PACIFIC MEDICAL CENTERANF Technology [id number] NOT PROVIDEDBON [facility] HEALTHHCO3 (Bld) [Moles/Vol]28.3 mmol/L24 - 30 mmol/LBON [facility]ITALY HEALTHInterpretation and review of laboratory resultsAbnormalBON [facility] HEALTHOxygen saturation in Blood81.8 %60.0 - 85.0 %BON [facility]ENTERANF Technology HEALTHpCO2, Ven52.9BON [facility]ENTERANF Technology HEALTHpH, Ven7.348BON [facility]ENTERANF Technology HEALTHpO2, Ven45.9BON [facility]ERY HEALTHPositive Base Excess, Ven2.2 mmol/LHigh0.0 - 2.0 mmol/LBON [facility]ITALANF Technology HEALTHPt Temp37.0BON [facility]ITALB[facility] HEALTHBasic Metabolic Panel w/ Reflex to MGon 64-63-8780Ysijz gap [Moles/Vol]8 mmol/LLow9 - 17 mmol/LBON [facility] HEALTHCalcium [Mass/Vol]10.7 mg/dLHigh8.6 - 10.4 mg/dLBON [facility] HEALTHChloride [Moles/Vol]109 mmol/LHigh98 - 107 mmol/L B[facility] CENTERANF Technology HEALTHCO2 [Moles/Vol]28 mmol/L20 - 31 mmol/LBON [facility] HEALTHCreatinine [Mass/Vol]1.8 mg/dLHigh0.70 - 1.20 mg/dLBON SEC[facility]Y HEALTHGFR Qpxdeicd96 mL/minLow>60BON [facility] HEALTHGFR Non- Oadmtwof70 mL/minLow>60BON SEC[facility] Global ActiveY HEALTHGFR/1.73 sq M.predicted MDRD (S/P/Bld) [Vol rate/Area][facility] [employer] KK HEALTHGlucose [Mass/Vol]123 mg/dLHigh 70 - 99 mg/dLBON [facility] HEALTHInterpretation and review of laboratory resultsAbnormalBON [facility]ITALPotassium [Moles/Vol]4.0 mmol/L3.7 - 5.3 mmol/LBON [facility]ITALSodium [Moles/Vol]145 mmol/PZcog481 - 144 mmol/L [facility] HOSPITALUrea nitrogen (BldV) [Mass/Vol]49 mg/dLHigh6 - 20 mg/dL [facility] VCUCBC with Auto Differentialon [id number] Eos #0.32BON [facility] HOSPITALAbsolute Immature Granulocyte<0.03BON [facility]PITALAbsolute Lymph #1.91BON [facility]ITALAbsolute Menard #1.05BON [facility] HOSPITALBasophils (Bld) [#/Vol]0.06 10*3/uLBON [facility]OSPITALBasophils/100 WBC (Bld)1 %0 - 2 %[facility] HOSPITALEosinophils/100 WBC (Bld)4 %1 - 4 %[facility] Hematocrit (Bld) [Volume fraction]38.1 %Low40.7 - 50.3 %[facility] Hemoglobin (Bld) [Mass/Vol]12.0 g/dLLow13.0 - 17.0 g/dLBON [facility] Immature granulocytes/100 WBC (Bld)0 %0[facility] HOSPITALInterpretation and review of laboratory resultsAbnormalCARILION ROANOKE COMMUNITY HOSPITALLymphocytes/100 WBC (Bld)24 %24 - 43 %[facility]H (RBC) [Entitic mass]28.6 pg 25.2 - 33.5 pgWELLMONT HEALTH SYSTEMHC (RBC) [Mass/Vol]31.5 g/dL28.4 - 34.8 g/dLBON [facility]PITALV (RBC) [Entitic vol]90.9 fL82.6 - 102.9 fLCARILION ROANOKE COMMUNITY HOSPITALMonocytes/100 WBC (Bld)13 %High3 - 12 %[facility] HOSPITALNRBC Automated0.00.0 per 100 WBCBON [facility] HEALTHPlatelet distribution width (Bld) [Ratio]12.5 %11.8 - 14.4 %[facility] Platelet mean volume (Bld) [Entitic vol]10.3 fL8.1 - 13.5 fLBON [facility] HEALTHPlatelets (Bld) [#/Vol]305 10*3/uLBON [facility] HEALTHRBC (Bld) [#/Vol]4.19 10*6/uLLow4.21 - 5.77 m/uLBON [facility] HEALTHSeg Mwypryrwbli41 %36 - 65 %[facility] HEALTHSegs Absolute4.65B[facility] HEALTHWBC (Bld) [#/Vol]8.0 10*3/uLBON [facility]Y HEALTHBON [facility]Y HEALTHCulture, Blood 1on 97-48-0979Csxhkxpd identified Cx Nom (Unsp spec)NO GROWTH 5 DAYSBON [facility] HEALTHSpecimen Description.BLOODBON SECOURS [facility]OS[facility]ITALY HEALTHBON [facility] HEALTHBacteria identified Cx Nom (Unsp spec)NO GROWTH 5 DAYSBON [facility] HEALTHSpecimen Description.BLOODBON SECOURS [facility]OS[facility]ITALY HEALTHBON [facility] HEALTHArterial Blood Gas, POCon 85-66-1169Qypvs TestPositiveBON [facility] OUNWVDMTN774.0BON [facility] HEALTHHCO3 (Bld) [Moles/Vol]27.5 mmol/L21.0 - 28.0 mmol/LBON [facility] HEALTHOxygen saturation in Blood93 % Low94.0 - 98.0 %[facility]OS[facility]ITALY HEALTHPOC kJN050.3B[facility] HEALTHPOC pH7.372BON [facility]Y HEALTHPOC PO270.5LowBON [facility] HEALTHPositive Base Excess, [id number] [facility] HEALTHSample SiteRight Radial ArteryBON SEC[facility]Y HEALTHBasic Metabolic Panel w/ Reflex to MGon 88-33-1379Edsvp gap [Moles/Vol]14 mmol/L9 - 17 mmol/LBON [facility] HEALTHCalcium [Mass/Vol]10.3 mg/dL8.6 - 10.4 mg/dLBON [facility] HEALTHChloride [Moles/Vol]107 mmol/L98 - 107 mmol/LBON [facility] HEALTHCO2 [Moles/Vol]21 mmol/L20 - 31 mmol/LBON [facility] HEALTHCreatinine [Mass/Vol]1.93 mg/dLHigh0.70 - 1.20 mg/dLBON [facility] HEALTHGFR Ymorawna79 mL/minLow>60[facility]ALTH GFR Non- Jeibcyxt36 mL/minLow>60B[facility] HEALTHGFR/1.73 sq M.predicted MDRD (S/P/Bld) [Vol rate/Area][facility] HEALTHGlucose [Mass/Vol]138 mg/jVKpsr48 - 99 mg/dLBON [facility] HEALTHInterpretation and review of laboratory resultsAbnormalBON [facility] HEALTHPotassium [Moles/Vol]4.4 mmol/L3.7 - 5.3 mmol/LBON [facility]ITALY HEALTHSodium [Moles/Vol] 142 mmol/L135 - 144 mmol/LBON [facility]ITALY HEALTHUrea nitrogen (BldV) [Mass/Vol]38 mg/dLHigh6 - 20 mg/dLBON [facility] HEALTHBON SEC[facility]ITALY HEALTHCBC with Auto Differentialon 13-73-9311Dgclbbrt Eos #0.21B[facility] HEALTHAbsolute Immature Granulocyte0.03B[facility] HEALTHAbsolute Lymph # 0.95LowBON [facility] HEALTHAbsolute Menard #0.90B[facility]Y HEALTH Basophils (Bld) [#/Vol]0.05 10*3/uLBON [facility] HEALTHBasophils/100 WBC (Bld)1 %0 - 2 %[facility] HEALTHEosinophils/100 WBC (Bld)2 %1 - 4 %[facility] HEALTHHematocrit (Bld) [Volume fraction]36.9 %Low40.7 - 50.3 %[facility] HEALTHHemoglobin (Bld) [Mass/Vol]12.1 g/dLLow13.0 - 17.0 g/dLBON SEC[facility]RS [facility] HOSPITALY [facility]ITALImmature granulocytes/100 WBC (Bld)0 %0B[facility] HEALTHInterpretation and review of laboratory resultsAbnormalBON [facility] HEALTHLymphocytes/100 WBC (Bld)10 %Low24 - 43 %BON [facility]ITALH (RBC) [Entitic mass]30.3 pg25.2 - 33.5 pgBON SECOHIOHE[facility] HOSPITALHC (RBC) [Mass/Vol]32.8 g/dL28.4 - 34.8 g/dLBON SECOHIOHEALTH GRADY MEMORIAL HOSPITALV (RBC) [Entitic vol]92.3 fL82.6 - 102.9 fLBON [facility] HEALTHMonocytes/100 WBC (Bld)10 %3 - 12 %[facility] HEALTHNRBC Automated0.00.0 per 100 WBCBON [facility] HOSPITALPlatelet distribution width (Bld) [Ratio]12.5 %11.8 - 14.4 %BON [facility] HEALTHPlatelet mean volume (Bld) [Entitic vol]10.5 fL8.1 - 13.5 fLCHANDLER REG[facility]AL [facility] SEC[facility] HEALTHPlatelets (Bld) [#/Vol]403 10*3/uLBON [facility] RBC (Bld) [#/Vol]4.00 10*6/uLLow4.21 - 5.77 m/uLCARILION ROANOKE COMMUNITY HOSPITALSeg Ttdxcayblht37 %High36 - 65 %BON [facility] HEALTHSegs Absolute7.03BON SEC[facility] HOSPITALWBC (Bld) [#/Vol]9.2 10*3/uLBON [facility] HEALTHCulture, Blood 1on 80-79-2205Eogfnhuk identified Cx Nom (Unsp spec) NO GROWTH 5 DAYSBON [facility] HEALTHSpecial [id number] R ARMCHANDLER REGIONAL [facility] SEC[facility] HEALTHSpecimen Description.BLOODBON [facility]CC[facility] HEALTHCulture, Body Fluidon 06-33-3952Dldwtfsi identified Cx Nom (Unsp spec)NO GROWTH 6 DAYSBON SECOURS [facility]OS[facility]ITALY HEALTHDirect ExamRARE NEUTROPHILSAbnormalCHANDLER [facility] HEALTHDirect ExamNO BACTERIA SEENBON [facility] HOSPITALDirect ExamGram stain made from cytocentrifuged specimen. Organisms and cells will be concentrated.[facility] HEALTHInterpretation and review of laboratory resultsAbnormalBON [facility] HEALTHSpecimen Description.FLUID .PERICARDIAL FLUIDBON [facility]AP[facility] CITY HOSPITALElectrolyte Panel w/ Reflex to MGon 83-85-9194Mqmpo gap [Moles/Vol]11 mmol/L9 - 17 mmol/LBON [facility] HOSPITALChloride [Moles/Vol]106 mmol/L98 - 107 mmol/LBON [facility] HEALTHCO2 [Moles/Vol]26 mmol/L20 - 31 mmol/LBON [facility] HOSPITALPotassium [Moles/Vol] 4.3 mmol/L3.7 - 5.3 mmol/LBON [facility] HOSPITALSodium [Moles/Vol]143 mmol/L 135 - 144 mmol/LBON [facility] HOSPITALHIV Screenon 09-96-7862API Ag/AbNon-ReactiveNONREACTIVECHILDR[facility] VCUMRI BRAIN WO CONTRASTon 20-80-9012DAUO RIS CONSOLIDATEDPN [facility] Work Phone: MRI BRAIN WO CONTRASTOrdered By: Elias Francis on [id number] [facility] [employer] Phone: MRI CERVICAL SPINE WO CONTRASTon [id number] RIS CONSOLIDATEDPN [facility] Work Phone: bON [facility] [employer] Phone: No Panel Informationon 15-24-5165Gvccswefy Study observation (narrative)[facility] Work Phone: Interpretation and review of laboratory results AbnormalBON [facility] HOSPITALPOCT Glucoseon 51-37-1701Mmdronz [Mass/Vol]139 mg/jTEqaf51 - 100 mg/dLBON [facility] XR CHEST PORTABLEon 08-25-4650FKMJ RIS CONSOLIDATEDPN RIS [facility] Work Phone: XR CHEST PORTABLEOrdered By: Elias Dave on [id number] [facility] Schedulicity Work Phone: Arterial Blood Gas, POCon 25-36-6821Qmgnb TestPositive BON [facility] YRQRUVRET811.0BON [facility]ITALY HEALTHHCO3 (Bld) [Moles/Vol] 23.9 mmol/L21.0 - 28.0 mmol/LBON [facility] HEALTHInterpretation and review of laboratory resultsAbnormalBON [facility] HOSPITALY [facility] HOSPITALNegative Base Excess, Art2 BON [facility] HEALTHO2 Device/Flow/%Adult VentilatorBON [facility] Oxygen saturation in Blood92 %Low94.0 - 98.0 %[facility] pCO2 46.2BON SEC[facility]ITALPOC pH7.323LowBON [facility]ITALC PO270.9Low [facility] C[facility]ARY[facility]OUNT HOSPITALSample SiteRight Radial ArteryBON [facility] Basic Metabolic Panel w/ Reflex to MGon [id number] gap [Moles/Vol]10 mmol/L 9 - 17 mmol/LBON [facility] HEALTHCalcium [Mass/Vol]10.1 mg/dL8.6 - 10.4 mg/dLBON [facility] HEALTHChloride [Moles/Vol]109 mmol/LHigh98 - 107 mmol/L [facility]Y HEALTHCO2 [Moles/Vol]21 mmol/L20 - 31 mmol/LBON [facility] HEALTHCreatinine [Mass/Vol]1.99 mg/dLHigh0.70 - 1.20 mg/dLBON [facility] HEALTHGFR Unoneasp86 mL/minLow>60B[facility] HEALTHGFR Non- Yghqcjxc27 mL/minLow>60B[facility] HEALTHGFR/1.73 sq M.predicted MDRD (S/P/Bld) [Vol rate/Area]BON [facility] HEALTHGlucose [Mass/Vol]83 mg/dL70 - 99 mg/dLBON [facility]ITALY HEALTHInterpretation and review of laboratory results AbnormalBON [facility] HEALTHPotassium [Moles/Vol]4.4 mmol/L3.7 - 5.3 mmol/L [facility] HEALTHSodium [Moles/Vol]140 mmol/L135 - 144 mmol/LBON [facility] HOSPITALY HEALTHUrea nitrogen (BldV) [Mass/Vol]36 mg/dLHigh6 - 20 mg/dLBON [facility] HEALTHBON [facility] HEALTHCBC with Auto Differentialon 09-03-2021 Absolute Eos #0.29BON [facility]OSPITALAbsolute Immature Granulocyte0.03BON [facility] HOSPITALY [facility] HOSPITALAbsolute Lymph #1.71BON [facility]OS[facility]ITALY [facility] HOSPITALAbsolute Menard # 0.99BON [facility]OS[facility]ITALBasophils (Bld) [#/Vol]0.04 10*3/uLBON [facility] HEALTHBasophils/100 WBC (Bld)1 %0 - 2 %[facility] SEC[facility] HOSPITALEosinophils/100 WBC (Bld)3 %1 - 4 %[facility] HOSPITALHematocrit (Bld) [Volume fraction] 39.7 %Low40.7 - 50.3 %[facility] HOSPITALHemoglobin (Bld) [Mass/Vol]12.2 g/dLLow13.0 - 17.0 g/dLBON [facility]OS[facility]ITALImmature granulocytes/100 WBC (Bld)0 %0BON [facility] HOSPITALInterpretation and review of laboratory results AbnormalBON [facility] HOSPITALLymphocytes/100 WBC (Bld)19 %Low24 - 43 %[facility] SYSTEMH (RBC) [Entitic mass]29.2 pg25.2 - 33.5 pgWELLMONT HEALTH SYSTEMHC (RBC) [Mass/Vol]30.7 g/dL28.4 - 34.8 g/dLBON [facility]OSPITALV (RBC) [Entitic vol]95.0 fL82.6 - 102.9 fLCARILION ROANOKE COMMUNITY HOSPITAL Monocytes/100 WBC (Bld)11 %3 - 12 %[facility] HOSPITALNRBC Automated0.00.0 per [address] [facility] HOSPITALPlatelet distribution width (Bld) [Ratio]13.2 %11.8 - 14.4 %BON [facility] HEALTHPlatelet mean volume (Bld) [Entitic vol] 10.6 fL8.1 - 13.5 fLCHANDLER REGIONAL [facility] SEC[facility] HEALTHPlatelets (Bld) [#/Vol]244 10*3/uL [facility] SEC[facility] HOSPITALRBC (Bld) [#/Vol]4.18 10*6/uLLow4.21 - 5.77 m/uLCARILION ROANOKE COMMUNITY HOSPITALSeg Dydtljcbnea69 %High36 - 65 %[facility] COMM[facility] HOSPITALSegs Absolute5.81BON [facility] HOSPITALWBC ([facility]) [#/Vol]8.9 10*3/uLBON [facility] HOSPITALElectrophoresis Protein, Serumon 09-03-2021 Albumin %53 %45 - 65 %[facility] HOSPITALAlbumin [Mass/Vol]3.1 g/dLLow3.2 - 5.2 g/dLBON [facility] HEALTHAlpha 1 %7 %High3 - 6 %[facility] Alpha 2 %13 %6 - 13 %[facility] HOSPITALAlpha-1-Globulin0.4 g/dL0.1 - 0.4 g/dLBON [facility] HOSPITALFNSUSYGipjs-8-Jtwkwmve3.8 g/dL0.5 - 0.9 g/dLBRUSSELL COUNTY MEDICAL CENTERBeta Globulin0.9 g/dL0.5 - 1.1 g/dLBON [facility] HEALTHBeta Cdgvwvp74 %11 - 19 %[facility] HOSPITALFree PSA/Total PSA [Mass fraction] 5.8 g/dLLow6.4 - 8.3 g/dLBRUSSELL COUNTY MEDICAL CENTERGamma Globulin0.7 g/dL0.5 - 1.5 g/dLBON [facility] HOSPITALGamma Globulin %11 %9 - 20 %[facility] Interpretation and review of laboratory resultsAbnormalCARILION [facility]KE [facility] Pathologist Cyto stain Nom (Cvx/Vag) [ID]ELECTRONICALLY SIGNED. ZOE STERN M.D.[facility] HOSPITALProtein Electrophoresis, SerumALBUMIN IS DECREASED. MAY BE OBSERVED WITH HEPATIC DISEASE, PROTEINURIA, MALNUTRITION, ACUTE PHASE RESPONSE, AND HEMODILUTION.[facility] HOSPITALTotal Prot. Sum 5.9 g/dLLow6.3 - 8.2 g/dLBON [facility]OS[facility]ITALTotal Prot. Sum,%100 %98 - 102 %[facility] VCUImmunofixation serum profileon 80-68-1788Smoyihwxkfo Cyto stain Nom (Cvx/Vag) [ID]ELECTRONICALLY SIGNED. ZOE STERN M.D.[facility] Hospitalum IFX InterpIMMUNOFIXATION IS NEGATIVE FOR MONOCLONAL IMMUNOGLOBULIN.BON [facility] HOSPITALLipaseon 97-46-1351Ffdane [Catalytic activity/Vol]23 U/L13 - 60 U/L [facility] VCUNo Panel Informationon 56-74-6301LEV [facility] HOSPITALPOCT Glucoseon 01-79-9662Fehfxmw [Mass/Vol]79 mg/dL74 - 100 mg/dLBON [facility] HOSPITALANA SCREEN WITH REFLEXon 09-02-2021 Anti ds DNA1.2<10.0 IU/mLCARILION ROANOKE COMMUNITY HOSPITALENA Antibodies Screen0.1 U/mL <0.7BON [facility] HOSPITALNuclear Ab IF (S) [Titer]NegativeNEGATIVEBON [facility] HOSPITALANTI-NEUTROPHIL ANTIBODYon 37-39-2121Aztrwewajh Ab, FlowNegative NegativeCH[facility] VCUAnti-Neutrophilic Cytoplasmic Antibodyon 68-54-3062LVRW Myeloperoxidase<0.30.0 - 3.5 AU/mLCARILION ROANOKE COMMUNITY HOSPITALANCA Proteinase 30.9 AU/mL0.0 - 2.0 AU/mLCARILION ROANOKE COMMUNITY HOSPITALArterial Blood Gas, POCon 38-18-4767Mjyzr TestPositiveCARILION ROANOKE COMMUNITY HOSPITALFIO230.0[facility] COMMUNITY HOSPITALHCO3 (Bld) [Moles/Vol]21.7 mmol/L21.0 - 28.0 mmol/LBON [facility]OS[facility]ITALInterpretation and review of laboratory resultsAbnormalBON [facility]ITALModePRVCBON [facility]ITALNegative Base Excess, Mdu2IolsLVVCARILION ROANOKE COMMUNITY HOSPITALO2 Device/Flow/%Adult VentilatorCARILION ROANOKE COMMUNITY HOSPITALOxygen saturation in Blood93 %Low94.0 - 98.0 %[facility] iQM591.6HighBON [facility] pCO2 Icya80ul HgBON [facility] pH7.258LowBON [facility] pH Temp7.25BON [facility] PO276.2LowBON [facility] DAYTONC pO2 Ynxd84ok HgBON [facility] HOSPITALPt Temp37.9BON [facility]OSPITALSample SiteRight Radial ArteryBON [facility] HOSPITALBasic Metabolic Panel w/ Reflex to MGon 09-02-2021 Anion gap [Moles/Vol]9 mmol/L9 - 17 mmol/LBON [facility] HOSPITALCalcium [Mass/Vol]10.0 mg/dL8.6 - 10.4 mg/dLBON [facility] HOSPITALChloride [Moles/Vol] 110 mmol/LHigh98 - 107 mmol/LBON [facility] HOSPITALCO2 [Moles/Vol]20 mmol/L20 - 31 mmol/LBON [facility] HOSPITALCreatinine [Mass/Vol]1.86 mg/dLHigh0.70 - 1.20 mg/dLBON [facility] HOSPITALGFR Qbhczyxo00 mL/minLow>60BON [facility] HOSPITALGFR Non- Tkokegem59 mL/minLow>60BON [facility] GFR/1.73 sq M.predicted MDRD (S/P/Bld) [Vol rate/Area]BON [facility] Glucose [Mass/Vol]84 mg/dL70 - 99 mg/dLBON [facility] HOSPITALPotassium [Moles/Vol]4.7 mmol/L3.7 - 5.3 mmol/LBON [facility] HOSPITALSodium [Moles/Vol] 139 mmol/L135 - 144 mmol/LBON [facility] METHOD[facility] HOSPITALUrea nitrogen (BldV) [Mass/Vol]31 mg/dLHigh6 - 20 mg/dLBON [facility] HOSPITALC3 Complementon 60-69-7337Yhtgapqtav C3183 mg/uKMxyq10 - 180 mg/dLBON [facility] Interpretation and review of laboratory resultsAbnormalBON [facility] C4 Complementon 07-92-4772Wiqalyqrai C429 mg/dL10 - 40 mg/dLBON [facility] HOSPITALCBC with Auto Differentialon 32-05-8011Eduvtldy Eos #0.34BON [facility] HOSPITALAbsolute Immature Granulocyte0.05BON [facility]ITALAbsolute Lymph # 2.08B[facility] HEALTHAbsolute Menard #1.34HighBON [facility] HEALTH Basophils (Bld) [#/Vol]0.04 10*3/uLBON [facility] HEALTHBasophils/100 WBC (Bld)0 %0 - 2 %BON SECMARIA ELENA [facility]MS HOSPITALEosinophils/100 WBC (Bld)3 %1 - 4 %BON [facility] HOSPITALHematocrit (Bld) [Volume fraction]38.7 %Low40.7 - 50.3 %BON [facility] HOSPITALHemoglobin (Bld) [Mass/Vol]11.5 g/dLLow13.0 - 17.0 g/dLBON [facility]OS[facility]ITALImmature granulocytes/100 WBC (Bld)1 %Owhu4XTB [facility]OS[facility]ITALInterpretation and review of laboratory resultsAbnormalBON [facility] HOSPITALLymphocytes/100 WBC (Bld)19 %Low24 - 43 %[facility] SYSTEMH (RBC) [Entitic mass]28.7 pg25.2 - 33.5 pgBON SECOHIOHEALTH GRADY MEMORIAL HOSPITALHC (RBC) [Mass/Vol]29.7 g/dL28.4 - 34.8 g/dLBON SECOHIOHEALTH GRADY MEMORIAL HOSPITALV (RBC) [Entitic vol]96.5 fL82.6 - 102.9 fLBON [facility]OSPITALMonocytes/100 WBC (Bld)12 %3 - 12 %DAVION [facility] HOSPITALNRBC Automated0.00.0 per 100 WBCCHANDLER REGIONAL [facility] SEC[facility] HOSPITALPlatelet distribution width (Bld) [Ratio]13.5 %11.8 - 14.4 %BON [facility] HEALTHPlatelet mean volume (Bld) [Entitic vol]10.7 fL8.1 - 13.5 fLBON [facility] HEALTHPlatelets (Bld) [#/Vol]228 10*3/uLBON [facility] HEALTH RBC (Bld) [#/Vol]4.01 10*6/uLLow4.21 - 5.77 m/uLBON [facility]OSPITALSeg Sseorhhgmal10 %36 - 65 %[facility] HEALTHSegs Absolute7.14BON [facility] HOSPITALWBC (Bld) [#/Vol]11.0 10*3/uLBON SECMARSHFIELD MEDICAL CENTER - LADYSMITH RUSK COUNTYCreatinine, Random Urineon 04-46-5296Ccivfjnkeq, Ur129.7 mg/dL39.0 - 259.0 mg/dLBON [facility] HOSPITALCulture, Respiratoryon 03-25-9817Zokjqsnf identified Cx Nom (Unsp spec)METHICILLIN RESISTANT STAPHYLOCOCCUS AUREUS HEAVY GROWTHAbnormalBON [facility]ERS[facility] HOSPITALBacteria identified Cx Nom (Unsp spec) NORMAL RESPIRATORY JAMES LIGHT GROWTHBON [facility] HOSPITALDirect Exam>10, <25 NEUTROPHILS/LPFBON [facility]IVERSIDE [facility]OSPITALDirect Exam< 10 EPITHELIAL CELLS/LPFBON [facility]ERS[facility]OSPITALDirect ExamPositiveAbnormalCARILION ROANOKE COMMUNITY HOSPITALDirect ExamMIXED BACTERIAL MORPHOTYPES ALSO PRESENT ON GRAM STAIN.AbnormalBON [facility] HOSPITALInterpretation and review of laboratory resultsAbnormalCARILION ROANOKE COMMUNITY HOSPITALSpecimen Description.ENDOTRACHEALBON SECMARSHFIELD MEDICAL CENTER - LADYSMITH RUSK COUNTYEosinophils, Urineon 15-20-5692Xyarwgrhbu, UrNONE SEENNONE SEENBON [facility] HOSPITALHepatitis Panel, Acuteon 09-02-2021 HAV IgM IA Qn (S)Non-ReactiveNONREACTIVEIn[facility] B Core Ab, IgMNon-ReactiveNONREACTIVECARILION ROANOKE COMMUNITY HOSPITALHepatitis B Surface Ag Non-ReactiveNONREACTIVECARILION ROANOKE COMMUNITY HOSPITALHepatitis C AbNon-Reactive NONREACTIVEBON REGION[facility]ALTH RAPID CITY HOSPITALKappa/Lambda Quantitative Free Light Chains, Serumon 81-24-5080Lxsq [place]/Lambda Ratio0.77[facility] HOSPITALInterpretation and review of laboratory resultsAbnormalCARILION ROANOKE COMMUNITY HOSPITALKappa Free Light Chains QNT5.26 mg/dLHigh0.37 - 1.94 mg/dL [facility] COMMUN[facility] HOSPITALLambda Free Light Chains QNT6.82 mg/dLHigh0.57 - 2.63 mg/dLBON REG[facility] CITY HOSPITALNo Panel Informationon 63-85-4822HAG [facility] HOSPITALRadiology Study observation (narrative)[facility] Work Phone: bON [facility] HOSPITALInterpretation and review of laboratory resultsAbnormalMOBRIDGE REGIONAL HOSPITALC Glucose Fingerstickon 09-02-2021 Glucose [Mass/Vol]87 mg/dL75 - 110 mg/dLBON REGION[facility]ALTH RAP[facility] CITY HOSPITALGlucose [Mass/Vol]89 mg/dL75 - 110 mg/dLBON [facility] RAP[facility] CITY HOSPITALPOCT Glucoseon 04-51-4549Jiupfhe [Mass/Vol]80 mg/dL74 - 100 mg/dLBON [facility]ERSIDE METHODIST HOSPITALPTH, Intacton 37-49-7414Tegexgiobenhbx and review of laboratory resultsAbnormRetreat Doctors' HospitalPth Pwxgqx658.2 pg/mLHigh 15.0 - 65.0 pg/mLBON REGION[facility] RAPID CITY HOSPITALPhosphoruson 09-84-3191Bhobjtwko [Mass/Vol]3.2 mg/dL2.5 - 4.5 mg/dLBON [facility] Protein, urine, randomon 28-75-5105Cztpcfo (U) [Mass/Vol]97 mg/dLBON [facility]ERS[facility] METHOD[facility] HOSPITALRheumatoid Factoron 71-90-0778Zdrhbxylbk Factor<10<14 IU/mLCHILDREN'[facility] AT VCUTriglycerideon 09-02-2021 Triglyceride [Mass/Vol]202 mg/dLHigh<150BON [facility] HOSPITALVancomycin Level, Randomon 21-93-5223Bsnvtraqpu Rm18.3 ug/mLCHILDR[facility] AT VCUVitamin D 25 Hydroxyon 32-78-4427Niahkiomcqbtxa and review of laboratory resultsAbnormRetreat Doctors' HospitalVit D, 25-Hydroxy9.5 ng/mL Low>29.9B[facility] HOSPITALXR ABDOMEN FOR NG/OG/NE TUBE PLACEMENTon 80-50-3203ATMP RIS CONSOLIDATEDMHPN RIS CONSOLIDATEDCARILION ROANOKE [facility] Work Phone: XR ABDOMEN FOR NG/OG/NE TUBE PLACEMENTOrdered By: Farhan Gaines on 28-43-7394YBW [employer] [facility] Work Phone: XR CHEST PORTABLEon 13-69-8000WQBT RIS CONSOLIDATED MHPN RIS CONSOLIDATEDBON SEC[employer] [facility] Work Phone: bON [facility] Work Phone: aLDOSTERONEon 63-54-1824Iypjkervpbt5.3 ng/dLBON SEC[facility] HEALTHBON SECMERCY [facility] CHARLES HOSPITALArterial Blood Gas, POCon 09-01-2021 Dwight TestNOT APPLICABLEBON [facility] GOZOUCUBQ796.0BON SECGood Travel Software [facility] HCO3 (Bld) [Moles/Vol]19.9 mmol/LLow21.0 - 28.0 mmol/LBON [facility] - GILBERTGood Travel Software TRI[facility] GOOD SAMARITAN HOSPITALANF Technology HEALTH Interpretation and review of laboratory resultsAbnormalBON SECGood Travel Software [facility] HOSPITALANF Technology HEALTH ModePRVCBON SECMERCY HEALTH ST. CHARLES HOSPITALNegative Base Excess, Tzm0LngrBZH SECGood Travel Software [facility] HOSPITALANF Technology [facility] HOSPITALO2 Device/Flow/%Adult VentilatorBON SECMERCY HE[facility] ST. CHARLES HOSPITALOxygen saturation in Blood97 %94.0 - 98.0 %BON SECSUMMIT PACIFIC MEDICAL CENTERANF Technology [facility]ITALC lNS018.2LowBON SECSUMMIT PACIFIC MEDICAL CENTERANF Technology [facility] MARY[facility]OUNT HOSPITALPOC pH7.373BON SECSUMMIT PACIFIC MEDICAL CENTERANF Technology [facility] MARY[facility]OUNT HOSPITALPOC PO289.0BON SECIxtens [facility] MARYMOUNT HOSPITALSample SiteArterial LineBON PLACENTIA-LINDA HOSPITALANF Technology [facility]OUNT HOSPITALBasic Metabolic Panel w/ Reflex to MGon 59-92-5848Bikts gap [Moles/Vol]10 mmol/L9 - 17 mmol/LBON SECIxtens HEALTHCalcium [Mass/Vol]9.3 mg/dL8.6 - 10.4 mg/dLBON SECGood Travel Software [facility]ALTH Chloride [Moles/Vol]111 mmol/LHigh98 - 107 mmol/LBON SECIxtens HEALTHCO2 [Moles/Vol]19 mmol/LLow20 - 31 mmol/LBON SECIxtens HEALTHCreatinine [Mass/Vol]1.71 mg/dLHigh0.70 - 1.20 mg/dLBON SECIxtens HEALTHGFR Keabobdw91 mL/minLow>60BON SECIxtens HEALTHGFR Non- Lwnumzcj86 mL/min Low>60BON SEC[facility] [employer] KK HEALTHGFR/1.73 sq M.predicted MDRD (S/P/Bld) [Vol rate/Area]BON SECOURS [facility] HOSPITALY HEALTHGlucose [Mass/Vol]102 mg/iKMvlz71 - 99 mg/dL BON SEC[facility]OSPITALY HEALTHPotassium [Moles/Vol]4.2 mmol/L3.7 - 5.3 mmol/LBON [facility] HEALTHSodium [Moles/Vol]140 mmol/L135 - 144 mmol/LBON [facility] HEALTHUrea nitrogen (BldV) [Mass/Vol]22 mg/dLHigh6 - 20 mg/dLBON SECOURS [facility] GOOD SAMARITAN HOSPITALY [facility] HOSPITALCBC with Auto Differentialon 06-89-6865Nucfujmc Eos #0.22BON [facility] MARYMOUNT HOSPITALAbsolute Immature Granulocyte<0.03B[facility] HEALTHAbsolute Lymph #1.65B[facility] HEALTHAbsolute Menard #0.85[facility] HEALTH Basophils (Bld) [#/Vol]0.03 10*3/uLBON [facility] HEALTHBasophils/100 WBC (Bld)0 %0 - 2 %BON SEC[facility] HOSPITALEosinophils/100 WBC (Bld)2 %1 - 4 %BON [facility] HOSPITALHematocrit (Bld) [Volume fraction]33.8 %Low40.7 - 50.3 %BON [facility]OSPITALHemoglobin (Bld) [Mass/Vol]10.9 g/dLLow13.0 - 17.0 g/dLBON SECOURS [facility]OSPITALImmature granulocytes/100 WBC (Bld)0 %0BON SECOURS [facility]OSPITALInterpretation and review of laboratory resultsAbnormalBON SECOURS [facility] HOSPITALLymphocytes/100 WBC (Bld)18 %Low24 - 43 %BON SECOHIOHE[facility] GRADY [facility]ORIAL HOSPITALH (RBC) [Entitic mass]28.6 pg25.2 - 33.5 pgBON SECOURS [facility]OSPITALHC (RBC) [Mass/Vol]32.2 g/dL28.4 - 34.8 g/dLBON SECOURS [facility] HOSPITALV (RBC) [Entitic vol]88.7 fL82.6 - 102.9 fLBON [facility]RS [facility] HEALTHMonocytes/100 WBC (Bld)9 %3 - 12 %BON SECOURS Global ActiveY HEALTHNRBC Automated0.00.0 per 100 WBCBON SECOURS MERCY HEALTHPlatelet distribution width (Bld) [Ratio]13.5 %11.8 - 14.4 %B[facility] HEALTHPlatelet mean volume (Bld) [Entitic vol]10.8 fL8.1 - 13.5 fLBON SECOURS MERCY HEALTHPlatelets (Bld) [#/Vol]212 10*3/uLBON SECMARIA ELENA Global ActiveJed HEALTH RBC (Bld) [#/Vol]3.81 10*6/uLLow4.21 - 5.77 m/uLBON SECMARIA ELENA MERCY HEALTHSeg Fcdigtcdejr18 %High36 - 65 %B[facility] HEALTHSegs Absolute6.63BON SEC[facility] TONEY HEALTHWBC (Bld) [#/Vol]9.4 10*3/uLBON [facility] HEALTHBON SECMARIA ELENA Global ActiveY HEALTHEKG 12 LeadOrdered By: Kathy Shah on 33-41-6972Poozku Jhar685AVO BON SECDigital MagicsY HEALTH Work Phone: p-R Nakixzfy624 msBON SECDigital MagicsY HEALTH Work Phone: Q-T Cwgrfqqd488 msBON SECDigital MagicsY HEALTH Work Phone: QRS Mynvwnol89 msBON SECOURS Global [employer] HEALTH Work Phone: QTc Calculation (Bazett)471 msBON SECOURS Global [employer] HEALTH Work Phone: r [id number] SECDigital MagicsY HEALTH Work Phone: T Milan-24degreesBON SECOURS Global Active[employer] HEALTH Work Phone: Ventricular [id number] SECDigital MagicsY HEALTH Work Phone: bON SECIxtens HEALTH Work Phone: eKG 12 Leadon 78-37-8499BVLG STV MUSEBON SECIxtens HEALTH Work Phone: METANEPHRINES PLASMA FREEon 22-56-8330Wyowjabzzharsa and review of laboratory resultsAbnormalBON SECOURS Global ActiveY HEALTHMetaneph/Plasma InterpSee NoteBON SECDigital MagicsANF Technology [facility]ARY[facility] HOSPITALMetanephrine0.18 nmol/L0.00 - 0.49 nmol/L BON [facility] HOSPITALNormetanephrine0.92 nmol/LHigh0.00 - 0.89 nmol/LBON SECMARSHFIELD [facility] - LADYSMITH RUSK COUNTYMRI ABDOMEN WO CONTRASTon 09-01-2021 MHPN RIS CONSOLIDATEDMHPN RIS CONSOLIDATEDBON SECGood Travel Software [facility] Work Phone: radiology Study observation (narrative)BON [facility] - GILBERTCurexo Technology Work Phone: MRI ABDOMEN WO CONTRASTOrdered By: Ariel Ortiz on 63-15-4623JMW [facility] - GILBERTGood Travel Software [facility] SAMARITAN HOSPITALTinkoff Digital Work Phone: Mycoplasma pneumoniae antibody, IgMon 09-01-2021 Mycoplasma pneumo IgM0.33<0.91BON [facility]OSPITALNo Panel Informationon 50-01-8997VZB [facility] SchedulicityInterpretation and review of laboratory resultsAbnormalCH[facility] BON PL[facility]-LINDA HOSPITALANF Technology [facility]ARY[facility] HOSPITALPOCT Glucoseon 10-90-9655Xkitcmz [Mass/Vol]91 mg/dL74 - 100 mg/dLBON PLACENTIA-LINDA HOSPITALTinkoff DigitalRENINon 12-28-1935Xgbzz Dzbiluyf3le/mL/hrNASHOBA VALLEY MEDICAL CENTERGood Travel Software [facility] SAMARIT[facility] HOSPITALANF Technology [facility]ARY[facility] HOSPITALRenin Activity6.3ng/mL/hrNASHOBA VALLEY MEDICAL CENTERGood Travel Software [facility] Triglycerideon 83-77-2680Wcppxhwggoxj [Mass/Vol]178 mg/dLHigh<150BON [facility] HOSPITALVancomycin Level, Randomon 18-11-8529Dxnacwewwl Rm17.8 ug/mLBON [facility] CITY HOSPITALArterial Blood Gas, POCon 08-31-2021 Dwight TestNOT APPLICABLEBON PLACENTIA-LINDA HOSPITALANF Technology ORRYLPLVM048.0BON [facility] HCO3 (Bld) [Moles/Vol]22.1 mmol/L21.0 - 28.0 mmol/LBON [facility] - GILBERTGood Travel Software [facility] Interpretation and review of laboratory resultsAbnormRetreat Doctors' Hospital ModePRVCBON [facility] HOSPITALNegative Base Excess, [id number] PL[facility]-LINDA HOSPITALMERCY HEALTH ALLEN HOSPITALO2 Device/Flow/%Adult VentilatorBON [facility] HOSPITALOxygen saturation in Blood92 %Low94.0 - 98.0 %BON [facility]ITALC qPT869.3BON SECACCESS HOSPITAL DAYTONC pH7.392BON [facility]PITALC PO265.3LowBON [facility] HOSPITALSample SiteArterial LineBON [facility] HOSPITALBasic Metabolic Panel w/ Reflex to MGon 53-07-6408Ynssu gap [Moles/Vol]10 mmol/L9 - 17 mmol/LBON [facility] HOSPITALCalcium [Mass/Vol]9.0 mg/dL8.6 - 10.4 mg/dLBON [facility] Chloride [Moles/Vol]110 mmol/LHigh98 - 107 mmol/LBON [facility] METHOD[facility] HOSPITALCO2 [Moles/Vol]20 mmol/L20 - 31 mmol/LBON [facility] HOSPITALCreatinine [Mass/Vol] 1.77 mg/dLHigh0.70 - 1.20 mg/dLBON [facility] HOSPITALGFR Hzjugxoc53 mL/minLow>60BON [facility] HOSPITALGFR Non- Kyhvsdiv39 mL/minLow>60BON [facility] HOSPITALGFR/1.73 sq M.predicted MDRD (S/P/Bld) [Vol rate/Area][facility] HOSPITALGlucose [Mass/Vol]91 mg/dL70 - 99 mg/dLBON [facility] HOSPITALInterpretation and review of laboratory resultsAbnormalBON [facility] HOSPITALPotassium [Moles/Vol]3.9 mmol/L3.7 - 5.3 mmol/LBON [facility] Sodium [Moles/Vol]140 mmol/L135 - 144 mmol/LBON [facility] METHOD[facility] HOSPITALUrea nitrogen (BldV) [Mass/Vol]21 mg/dLHigh6 - 20 mg/dLBON SECMARSHFIELD MEDICAL CENTER - LADYSMITH RUSK COUNTYCBC with Auto Differentialon 94-79-6857Usnuvrqt Eos #0.14BON [facility] HOSPITALAbsolute Immature Granulocyte0.04BON [facility] Absolute Lymph #1.91BON [facility] HOSPITALAbsolute Menard #1.10BON [facility] HOSPITALBasophils (Bld) [#/Vol]0.04 10*3/uLBON [facility] HEALTHBasophils/100 WBC (Bld)0 %0 - 2 %[facility] HEALTHEosinophils/100 WBC (Bld)1 %1 - 4 % [facility] HEALTHHematocrit (Bld) [Volume fraction]33.8 %Low40.7 - 50.3 % BON SECMER[facility] CHARLES HOSPITALHemoglobin (Bld) [Mass/Vol]11.0 g/dLLow13.0 - 17.0 g/dL BON SEC[facility]RS [facility]OSPITALImmature granulocytes/100 WBC (Bld)0 %0B[facility] HEALTHInterpretation and review of laboratory resultsAbnormalBON SECMERCY [facility] ST. CHARLES HOSPITALLymphocytes/100 WBC (Bld)16 %Low24 - 43 %BON [facility]OSPITALH (RBC) [Entitic mass]28.7 pg25.2 - 33.5 pgBON SECOHIOHEALTH GRADY MEMORIAL HOSPITALHC (RBC) [Mass/Vol]32.5 g/dL28.4 - 34.8 g/dLBON SECOHIOHEALTH GRADY MEMORIAL HOSPITALV (RBC) [Entitic vol]88.3 fL82.6 - 102.9 fLCHANDLER REGIONAL MEDICAL [facility]ENTER [facility] HEALTHMonocytes/100 WBC (Bld)9 %3 - 12 %DAVION [facility] HEALTHNRBC Automated0.00.0 per 100 WBCBON [facility]SA[facility] HEALTHPlatelet distribution width (Bld) [Ratio]13.5 %11.8 - 14.4 %[facility] HEALTHPlatelet mean volume (Bld) [Entitic vol]10.6 fL8.1 - 13.5 fLBON [facility] HEALTHPlatelets (Bld) [#/Vol]195 10*3/uLBON [facility] HEALTH RBC (Bld) [#/Vol]3.83 10*6/uLLow4.21 - 5.77 m/uLBON [facility] HEALTHSeg Zryvvdipuby81 %High36 - 65 %BON SEC[facility]RS [facility] HOSPITALY HEALTHSegs Absolute8.64HighBON [facility] HEALTHWBC (Bld) [#/Vol]11.9 10*3/uLHighBON [facility] HEALTHBON [facility] HEALTHCulture, Blood 1on 62-85-6816Breaqtup identified Cx Nom (Unsp spec)PositiveAbnormRetreat Doctors' HospitalBacteria identified Cx Nom (Unsp spec)DIRECT GRAM STAIN FROM BOTTLE: GRAM POSITIVE COCCI IN [facility] CENTERBacteria identified Cx Nom (Unsp spec)Detected: Streptococcus species (not S. agalactiae (Group B), S. pneumoniae, or S. pyogenes (Group A)) Culture Results to Follow Methodology- Polymerase Chain Reaction (PCR)[facility] HOSPITALBacteria identified Cx Nom (Unsp spec) STREPTOCOCCI, BETA HEMOLYTIC GROUP CAbnormRetreat Doctors' HospitalBacteria identified Cx Nom (Unsp spec)(NOTE) Direct Gram Stain from bottle and Polymerase Chain Reaction (PCR) results called to and readback by: BAUTISTA Greenfield at 0425 on 08/31/21[facility] HOSPITALInterpretation and review of laboratory results [facility] HospitalSpecial Mstuljno75SK R WRISTCARILION ROANOKE COMMUNITY HOSPITALSpecimen Description.BL[facility]ODCH[facility] EKG 12 Leadon 11-87-6250Bnzbjf Ofut910PRPOTXCARILION ROANOKE COMMUNITY HOSPITAL Work Phone: p Okev20kfngxnhMLGLewisGale Hospital Montgomery Work Phone: p-R Dyeeemaf734 [facility] Work Phone: Q-T Nlrvmwjk283 [facility] Work Phone: QRS Eyhebdls41 [facility] Work Phone: QTc Calculation (Bazett)463 [facility] Work Phone: r Xhnm35zofwipyMIMRiverside Tappahannock Hospital Work Phone: T Kulb233jjnucsvHMQLewisGale Hospital Montgomery Work Phone: Ventricular Uoof075KHXEZLSOUTHERN VIRGINIA [facility]ION[facility] Schedulicity Work Phone: MHPN [facility] Schedulicity Work Phone: bINOVA FAIRFAX HOSPITALY Schedulicity Work Phone: No Panel Informationon 74-93-6192AOX [facility] - GILBERTGood Travel Software [facility]C Glucose Fingerstickon 45-90-8353Vwayckt [Mass/Vol]76 mg/dL75 - 110 mg/dLBON [facility] RAP[facility] CITY HOSPITALPOCT Glucoseon 08-31-2021 Glucose [Mass/Vol]81 mg/dL74 - 100 mg/dLBON [facility] HOSPITALXR CHEST PORTABLEon 29-96-7660AGBP RIS CONSOLIDATEDMHPN RIS CONSOLIDATEDCARILION ROANOKE COMMUNITY HOSPITAL Work Phone: radiology Study observation (narrative)[facility] VPEP Schedulicity Work Phone: xr CHEST PORTABLEOrdered By: Usha Ojeda on 98-56-6095QYYSOUTHSIDE REGIONAL [facility] Schedulicity Work Phone: Hepatic Function Panelon 24-33-6113Uegyckl [Mass/Vol]3 g/dLLow3.5 - 5.2 g/dLBON [facility] HOSPITALAlbumin/Globulin [Mass ratio]1.0 {ratio}[facility]AN[facility] COMMUNITY HOSPITALALP (Bld) [Catalytic activity/Vol]62 U/L40 - 129 U/LBON [facility] HOSPITALALT [Catalytic activity/Vol]13 U/L5 - 41 U/LBON [facility] HOSPITALAST [Catalytic activity/Vol]20 U/L<40BON [facility] METHOD[facility] HOSPITALBilirubin [Mass/Vol]0.95 mg/dL0.3 - 1.2 mg/dLBON [facility] Bilirubin, Indirect0.79 mg/dL0.00 - 1.00 mg/dLBON [facility] Bilirubin.indirect [Mass/Vol]0.16 mg/dL<0.31BON [facility] - GILBERTGood Travel Software [facility]OSPITALFree PSA/Total PSA [Mass fraction]5.9 g/dLLow6.4 - 8.3 g/dLBON [facility] Interpretation and review of laboratory resultsAbnormSouthside Regional Medical Center DNA Probe, Nasalon 71-41-6579Feuhvgecvzfpgc and review of laboratory resultsAbnormalBON [facility] MERCY HEALTHMRSA, DNA, Nasal POSITIVE: MRSA DNA detected by nucleic acid amplification.AbnormalNEGATIVEBON [facility] HOSPITALSpecimen Description.NASAL SWABBON [facility] CITY HOSPITALRespiratory Panel, Molecular, with COVID-19 (Restricted: peds pts or suitable admitted adults)on 48-45-1785Pxlbarnj Description .NASOPHARYNGEAL SWABBON [facility] HOSPITALUS RETROPERITONEAL LIMITEDon 18-55-6725ORHU RIS CONSOLIDATEDMHPN RIS CONSOLIDATEDCARILION ROANOKE COMM[facility] Work Phone: US RETROPERITONEAL LIMITEDOrdered By: Desire Mayberry on 95-86-2361PXP [facility] Work Phone: vl RENAL ARTERIAL DUPLEX COMPLETEon 36-23-6642WXPE STV CPACSCARILION ROANOKE COMMUNITY HOSPITAL Work Phone: vl RENAL ARTERIAL DUPLEX COMPLETEOrdered By: Unknown Result on 97-21-4563VITRUSSELL COUNTY MEDICAL CENTERTroponin I High Sensitivityon 82-95-5117Ioaijtsb I High Scmyezoaphf05 pg/mLOff scale high0-20[facility] HospitalComment on above:Result Comment: Results called at 2304 on 08/28/21 PERFORMED BY: [place] [address] PATHOLOGIST CORN MILLER MOHINDER MARKS M.D.Performed By: #### HS TROP #### [place] [address] USAActivated partial thromboplastin time (aPTT) in platelet poor plasma by coagulation aOrdered By: Basilio Sam on 05-23-1599uQRB Coag (PPP) [Time]33.0 s25.1-36.5FDunlap Memorial HospitalAlbumin [Mass/volume] in Serum or PlasmaOrdered By: Basilio Sam on 83-41-0707Jxnhiir [Mass/Vol]3.2 g/dL3.2-5.5FDunlap Memorial HospitalB-Type Natriuretic Peptideon 63-94-8392Litbjxgmlvr peptide B (Bld) [Mass/Vol]300.0 pg/mLHigh5-100 [facility] HospitalComment on above:Result Comment: PERFORMED BY: [facility] [address] [place] [address] PATHOLOGIST CORN MILLER MOHINDER MARKS M.D.Performed By: #### CBC, PT, PTT, CMP, LIPASE, BNP, HS TROP #### [facility] [address] [place] [id number] USABasophils Auto (Bld) [#/Vol]Ordered By: Basilio Sam on 39-08-2912Cpgjmkeun (Bld) [#/Vol]0.1 10*3/uL0.0-0.2FDunlap Memorial HospitalBasophils/100 WBC Auto (Bld)Ordered By: Basilio Sam on 08-28-2021 Basophils/100 WBC (Bld)0.6 %[facility]mount HospitalBlood hemoglobin measurement (mass/volume)Ordered By: Basilio Sam on 59-73-1300Dhwkbqabuw (Bld) [Mass/Vol]13.8 g/dL13.0-17.0Marymount HospitalBlowatonna hospital leukocytes automated count (number/volume)Ordered By: Basilio Sam on 65-25-4393ZWK (Bld) [#/Vol]8.9 10*3/uL4.5-11.0Marymount HospitalCOVID-19 Antigenon 68-63-6845AVWSI-19 AntigenHealthcare Worker?: N Reference Range: Negative Negative [...] developed and its performance characteristic determined by [employer] and validated at [facility]. This test has not been FDA [...] for SARS Antigen by JAYCEE PERFORMED BY: [place] [address] PATHOLOGIST CORN MILLER MOHINDER MARKS M.D.NormalMarymount HospitalComment on above: Performed By: #### COVID-19 ANN, SOFIANEG, COVID 19 [facility] #### [place] [address] USACOVID-19 [facility] CHICKASHAon 94-10-2397FPLJ-CoV-2 (COVID-19) RNA VIK+probe Ql (Unsp spec)NegativeNormalNegativeMarymount Hospital Comment on above:Order Comment: Healthcare Worker?: NResult Comment: Testing for SARS-CoV-2 by RT-PCR This test was developed and its performance characteristics determined by [email or web address] and validated at the [facility]. This test has not been FDA [...] is terminated or revoked sooner. PERFORMED BY: [place] [address] PATHOLOGIST CORN MILLER MOHINDER MARKS M.D.Performed By: #### COVID-19 ANN, SOFIANEG, COVID 19 [facility] #### [place] [address] USACOVID-19 SOFIAOrdered By: Basilio Sam on 08-28-2021 SARS-CoV+SARS-CoV-2 (COVID-19) Ag IA.rapid Ql (Resp)NegativeNegativeMarymount HospitalComment on above:This is a duplicate Ann SARS Antigen (JAYCEE) result to be used for statistical tracking purpose only.Complete Blood Count Auto Diffon 20-09-1056Thbcaqfdo (Bld) [#/Vol]0.1 10*3/uLNormal0.0-0.2 [facility] HospitalComment on above:Result Comment: PERFORMED BY: [place] [address] PATHOLOGIST CORN MILLER MOHINDER MARKS M.D.Performed By: #### CBC, PT, PTT, CMP, LIPASE, BNP, HS TROP #### [place] [address] USABasophils/100 WBC (Bld)0.6 %Normal.Marymount HospitalComment on above:Performed By: #### CBC, PT, PTT, CMP, LIPASE, BNP, HS TROP #### [place] [address] USAEosinophils (Bld) [#/Vol]0.1 10*3/uLNormal0.0-0.45 [facility] HospitalComment on above:Performed By: #### CBC, PT, PTT, CMP, LIPASE, BNP, HS TROP #### [place] [address] USAEosinophils/100 WBC (Bld)1.1 %Normal.Marymount HospitalComment on above:Performed By: #### CBC, PT, PTT, CMP, LIPASE, BNP, HS TROP #### [place] [address] USAErythrocyte distribution width (RBC) [Ratio]13.5 %Normal 12.0-14.8Marymount HospitalComment on above:Performed By: #### CBC, PT, PTT, CMP, LIPASE, BNP, HS TROP #### [place] [address] USAHematocrit (Bld) [Volume fraction]40.3 %Vezuib27.8-50.0 [facility] HospitalComment on above:Performed By: #### CBC, PT, PTT, CMP, LIPASE, BNP, HS TROP #### [place] [address] USAHemoglobin (Bld) [Mass/Vol]13.8 g/xQMxfcmw37.0-17.0 [facility] HospitalComment on above:Performed By: #### CBC, PT, PTT, CMP, LIPASE, BNP, HS TROP #### [place] [address] USALymphocytes (Bld) [#/Vol]2.8 10*3/uLNormal1.00-4.8 [facility] HospitalComment on above:Performed By: #### CBC, PT, PTT, CMP, LIPASE, BNP, HS TROP #### [place] [address] USALymphocytes/100 WBC (Bld)31.4 %Normal.Marymount HospitalComment on above:Performed By: #### CBC, PT, PTT, CMP, LIPASE, BNP, HS TROP #### [place] [address] USAMCH (RBC) [Entitic mass]28.9 zcDgsyta28.5-35.2FDunlap Memorial HospitalComment on above:Performed By: #### CBC, PT, PTT, CMP, LIPASE, BNP, HS TROP #### [facility] [address] [place] [address] USAMCV (RBC) [Entitic vol]84.9 gZTyoqty76.5-101Marymount HospitalComment on above:Performed By: #### CBC, PT, PTT, CMP, LIPASE, BNP, HS TROP #### [facility] [address] [place] [address] USAMean Corpuscular HGB Conc34.1 g/lEPrksrr49.5-35.6FDunlap Memorial HospitalComment on above:Performed By: #### CBC, PT, PTT, CMP, LIPASE, BNP, HS TROP #### [facility] [address] [place] [address] USAMonocytes (Bld) [#/Vol]0.6 10*3/uLNormal0.0-0.8Mary[facility] HospitalComment on above:Performed By: #### CBC, PT, PTT, CMP, LIPASE, BNP, HS TROP #### [facility] [address] [place] [address] USAMonocytes/100 WBC (Bld)6.5 %Normal.Marymount HospitalComment on above:Performed By: #### CBC, PT, PTT, CMP, LIPASE, BNP, HS TROP #### [place] [address] USANeutrophils (Bld) [#/Vol]5.4 10*3/uLNormal1.8-7.7FDunlap Memorial HospitalComment on above:Performed By: #### CBC, PT, PTT, CMP, LIPASE, BNP, HS TROP #### [facility] [address] [place] [address] USANeutrophils/100 WBC (Bld)60.4 %Normal.[facility] HospitalComment on above:Performed By: #### CBC, PT, PTT, CMP, LIPASE, BNP, HS TROP #### [place] [address] USANucleated RBC/100 WBC (Bld) [Ratio]0.1 %Normal0-0.5 [facility] HospitalComment on above:Performed By: #### CBC, PT, PTT, CMP, LIPASE, BNP, HS TROP #### [facility] [address] [place] [address] USAPlatelet mean volume (Bld) [Entitic vol]7.9 fLNormal 6.6-10.1FDunlap Memorial HospitalComment on above:Performed By: #### CBC, PT, PTT, CMP, LIPASE, BNP, HS TROP #### [place] [address] USAPlatelets (Bld) [#/Vol]277 10*3/dHQxwjyv786-558NtoiirwtxMarymount HospitalComment on above:Performed By: #### CBC, PT, PTT, CMP, LIPASE, BNP, HS TROP #### [place] [address] USARBC (Bld) [#/Vol]4.75 10*6/uLNormal3.90-5.60Mary[facility] HospitalComment on above:Performed By: #### CBC, PT, PTT, CMP, LIPASE, BNP, HS TROP #### [place] [address] USAWBC (Bld) [#/Vol]8.9 10*3/uLNormal4.5-11.0Marymount HospitalComment on above:Performed By: #### CBC, PT, PTT, CMP, LIPASE, BNP, HS TROP #### [place] [address] USAComprehensive Metabolic Panelon [id number] [Mass/Vol]3.2 g/dLNormal3.2-5.5FDunlap Memorial HospitalComment on above:Performed By: #### CBC, PT, PTT, CMP, LIPASE, BNP, HS TROP #### [place] [address] USAAlbumin/Globulin [Mass ratio]1.0 {ratio}NormalMarymount HospitalComment on above:Performed By: #### CBC, PT, PTT, CMP, LIPASE, BNP, HS TROP #### [facility] [address] [place] [address] USAALP [Catalytic activity/Vol]71 U/IPhxbvw05-63WlwodnxaxMarymount HospitalComment on above:Performed By: #### CBC, PT, PTT, CMP, LIPASE, BNP, HS TROP #### [place] [address] USAALT [Catalytic activity/Vol]22 U/TFiqrui02-24WguhkhlivMarymount HospitalComment on above:Performed By: #### CBC, PT, PTT, CMP, LIPASE, BNP, HS TROP #### [facility] [address] [place] [address] USAAST [Catalytic activity/Vol]20 U/UXhhfzf11-83LshxevnpmMarymount HospitalComment on above:Performed By: #### CBC, PT, PTT, CMP, LIPASE, BNP, HS TROP #### [place] [address] USABilirubin [Mass/Vol]0.6 mg/dLNormal0.3-1.2FDunlap Memorial HospitalComment on above:Performed By: #### CBC, PT, PTT, CMP, LIPASE, BNP, HS TROP #### [place] [address] USACalcium [Mass/Vol]10.3 mg/dLHigh8.2-10.2FDunlap Memorial HospitalComment on above:Performed By: #### CBC, PT, PTT, CMP, LIPASE, BNP, HS TROP #### [place] [address] USAChloride [Moles/Vol]111 mmol/QVrdxbf81-922JuugeunrcMarymount HospitalComment on above:Performed By: #### CBC, PT, PTT, CMP, LIPASE, BNP, HS TROP #### [place] [address] USACO2 [Moles/Vol]20.2 mmol/LLow22.0-30.0Marymount HospitalComment on above:Performed By: #### CBC, PT, PTT, CMP, LIPASE, BNP, HS TROP #### [facility] [address] [place] [address] USACreatinine [Mass/Vol]1.80 mg/dLHigh0.64-1.27Marymount HospitalComment on above:Performed By: #### CBC, PT, PTT, CMP, LIPASE, BNP, HS TROP #### [facility] [address] [place] [address] USACreatinine Clr Calc Hovzampx13.94NoUniversity Hospitals Samaritan Medical CenterComment on above:Performed By: #### CBC, PT, PTT, CMP, LIPASE, BNP, HS TROP #### [facility] [address] [place] [address] USAEstimated GFR ( Fyxxphb71GxxdmjZwfkslttyFlower HospitalComment on above:Result Comment: GFR estimated reference range: According to KDOQI guidelines, <60 ml/min/1.73m2 is sufficient to diagnose a patient with chronic kidney disease.Performed By: #### CBC, PT, PTT, CMP, LIPASE, BNP, HS TROP #### [facility] [address] [place] [address] USAEstimated GFR (Non- Tz34CynwalYrqfapwpq[address] [place], [place] [address]Comment on above:Performed By: #### CBC, PT, PTT, CMP, LIPASE, BNP, HS TROP #### [facility] [address] [place] [address] USAGlobulin (S) [Mass/Vol]3.1 g/dLFlower HospitalComment on above:Performed By: #### CBC, PT, PTT, CMP, LIPASE, BNP, HS TROP #### [facility] [address] [place] [address] USAGlucose [Mass/Vol]85 mg/oQAnozjt89-854YuqomwotzMarymount HospitalComment on above:Result Comment: Random Glucose Reference Range is dependent on time and content of last meal. Glucose of more than 200 mg/dL in a nonstressed, ambulatory subject supports the diagnosis of Diabetes Mellitus. ADA recommended reference rangePerformed By: #### CBC, PT, PTT, CMP, LIPASE, BNP, HS TROP #### [facility] [address] [place] [address] USAPotassium [Moles/Vol]4.2 mmol/LNormal3.5-5.1FDunlap Memorial HospitalComment on above:Performed By: #### CBC, PT, PTT, CMP, LIPASE, BNP, HS TROP #### [facility] [address] [place] [address] USAProtein [Mass/Vol]6.3 g/dLNormal6.1-7.9Marymount HospitalComment on above:Performed By: #### CBC, PT, PTT, CMP, LIPASE, BNP, HS TROP #### [facility] [address] [place] [address] USASodium [Moles/Vol]139 mmol/XJezwta213-562UhwvqcxyrMarymount HospitalComment on above:Performed By: #### CBC, PT, PTT, CMP, LIPASE, BNP, HS TROP #### [facility] [address] [place] [address] USAUrea nitrogen [Mass/Vol]26 mg/dLHigh9-23Marymount HospitalComment on above:Performed By: #### CBC, PT, PTT, CMP, LIPASE, BNP, HS TROP #### [place] [address] USACreatinine and Glomerular filtration rate.predicted panel (S/P/Bld)Ordered By: Basilio Sam on 13-95-4426Ouounpkejq [Mass/Vol]1.80 mg/dL 0.64-1.27Marymount HospitalECG 12 lead ECGon 67-10-7009KZS 12 lead [facility]GBARN[facility] [place] [address] [place] [address] Electrocardiograph Report Signed Patient: Elias Walker MR#: [id number] : 1985 Acct:[id number] Age/Sex: 36 / M ADM Date: 08/28/21 Loc: ER Room: Type: [facility] ER Attending Dr: Ordering Provider: Basilio [...] Signed By Madison Rodriguez MD 08/05 08/25 0126NormalMarymount HospitalEosinophils Auto (Bld) [#/Vol] Ordered By: Basilio Sam on 70-64-2334Fpoudjytplq (Bld) [#/Vol]0.1 10*3/uL 0.0-0.45Marymount HospitalEosinophils/100 WBC Auto (Bld)Ordered By: Basilio Sam on 94-52-3009Suolbgcvztz/100 WBC (Bld)1.1 %Marymount HospitalErythrocyte distribution width Auto (RBC) [Ratio]Ordered By: Basilio Sam on 13-20-6425Catrhuvfzrm distribution width (RBC) [Ratio]13.5 % 12.0-14.8Marymount HospitalEstimated glomerular filtration rate (GFR) non- AmericanOrdered By: Basilio Sam on 84-26-2160ECD/1.73 sq M.predicted among non-blacks MDRD (S/P/Bld) [Vol rate/Area]43 mL/MinMarymount HospitalGlobulin Calc (S) [Mass/Vol]Ordered By: Basilio Sam on 62-77-7246Yfnvmggo (S) [Mass/Vol]3.1 g/dLMarymount Hospital Hematocrit Auto (Bld) [Volume fraction]Ordered By: Basilio Sam on 08-28-2021 Hematocrit (Bld) [Volume fraction]40.3 %38.8-50.0Marymount HospitalLaboratory - Chemistry and Chemistry - challengeOrdered By: Basilio Sam on 33-11-0408Banzux [Catalytic activity/Vol]39.0 U/T72-91EejwvzzdjMarymount HospitalNatriuretic peptide B (Bld) [Mass/Vol]300.0 pg/mL5-100Marymount HospitalLaboratory - CoagulationOrdered By: Basilio Sam on 15-49-0693NO Coag (PPP) [Time]12.0 s9.0-12.9[facility] Laboratory - Hematology and Cell countsOrdered By: Basilio Sam on 08-28-2021 Nucleated RBC/100 WBC (Bld) [Ratio]0.1 %0-0.5FDunlap Memorial Hospital Laboratory - Microbiology and Antimicrobial susceptibilityOrdered By: Basilio Sam on 23-99-0385PTFI-CoV-2 (COVID-19) RNA VIK+probe Ql (Unsp spec)N/A Marymount HospitalLipaseon 51-41-0903Skxgre [Catalytic activity/Vol]39.0 U/KRlwkwo95-43LfcvlnvbsMarymount HospitalComment on above:Result Comment: PERFORMED BY: [place] [address] PATHOLOGIST CORN MILLER MOHINDER MARKS M.D.Performed By: #### CBC, PT, PTT, CMP, LIPASE, BNP, HS TROP #### [place] [address] USALymphocytes Auto (Bld) [#/Vol]Ordered By: Basilio Sam on 46-64-9711Qzevgutsmis (Bld) [#/Vol]2.8 10*3/uL1.00-4.8Marymount HospitalLymphocytes/100 WBC Auto (Bld)Ordered By: Basilio Sam on 08-28-2021 Lymphocytes/100 WBC (Bld)31.4 %[facility] Auto (RBC) [Entitic mass]Ordered By: Basilio Sam on 79-87-4486VMP (RBC) [Entitic mass]28.9 pg27.5-35.2FDunlap Memorial HospitalMCHC Auto (RBC) [Mass/Vol]Ordered By: Basilio Sam on 96-58-2366HYDS (RBC) [Mass/Vol]34.1 g/dL32.5-35.6FDunlap Memorial HospitalMCV Auto (RBC) [Entitic vol]Ordered By: Basilio Sam on 17-19-1804BHB (RBC) [Entitic vol]84.9 fL83.5-101Marymount HospitalMonocytes Auto (Bld) [#/Vol]Ordered By: Basilio Sam on 08-28-2021 Monocytes (Bld) [#/Vol]0.6 10*3/uL0.0-0.8[facility] Monocytes/100 WBC Auto (Bld)Ordered By: Basilio Sam on 94-43-2169Bcvgdnlch/100 WBC (Bld)6.5 %Marymount HospitalNeutrophils Auto (Bld) [#/Vol] Ordered By: Basilio Sam on 17-50-3967Fgcvqcuvrkb (Bld) [#/Vol]5.4 10*3/uL 1.8-7.7FDunlap Memorial HospitalNeutrophils/100 WBC Auto (Bld)Ordered By: Basilio Sam on 94-52-7021Kpcgibflixk/100 WBC (Bld)60.4 %Marymount HospitalNo Panel InformationOrdered By: Basilio Sam on 39-75-3676VBCS Antigen (LFIA)Marymount HospitalEstimated GFR () 52 mL/MinMarymount HospitalComment on above:GFR estimated reference range: According to KDOQI guidelines, <60 ml/min/1.73m2 is sufficient todiagnose a patient with chronic kidney disease.Pharmacy Creatinine Clearance (Chem62.94Marymount HospitalPartial Thromboplastin Timeon 27-55-4907lCJB Coag (Bld) [Time]33.0 zUzitcm96.1-36.5FDunlap Memorial HospitalComment on above:Result Comment: PERFORMED BY: [facility] [address] [place] [address] PATHOLOGIST CORN MILLER MOHINDER MARKS M.D.Performed By: #### CBC, PT, PTT, CMP, LIPASE, BNP, HS TROP #### [place] [address] USAPlatelet mean volume Auto (Bld) [Entitic vol]Ordered By: Basilio Sam on 68-96-4424Ffujodou mean volume (Bld) [Entitic vol]7.9 fL6.6-10.1 Marymount HospitalPlatelet poor plasma international normalized ratio (INR) by coagulation assay (relatOrdered By: Basilio Sam on 37-54-4076LYB Coag (PPP) [Relative time]1.1 {INR}Marymount HospitalComment on above:INR Therapeutic Range A) Pre- [...] Auto (Bld) [#/Vol]Ordered By: Basilio Sam on 59-19-0438Bgvvizmer (Bld) [#/Vol]277 10*3/uL 150-450Marymount HospitalProtein [Mass/volume] in Serum or Plasma Ordered By: Basilio Sam on 92-55-1773Iyblrdq [Mass/Vol]6.3 g/dL6.1-7.9Marymount HospitalProthrombin Time INRon 71-74-6593TTI Coag (PPP) [Relative time]1.1 {INR}NormalMarymount HospitalComment on above: Result Comment: INR Therapeutic [...] PTT, CMP, LIPASE, BNP, HS TROP #### [place] [address] USAPT Coag (PPP) [Time]12.0 sNormal9.0-12.9Marymount HospitalComment on above:Performed By: #### CBC, PT, PTT, CMP, LIPASE, BNP, HS TROP #### [facility] [address] [place] [address] USARB Auto (Bld) [#/Vol]Ordered By: Basilio Sam on 23-56-6430MAZ (Bld) [#/Vol]4.75 10*6/uL3.90-5.60[facility] Hamiltonerum or plasma alanine aminotransferase measurement without P-5'-P (enzymatic activiOrdered By: Basilio Sam on 23-97-2018REW No additional P-5'-P [Catalytic activity/Vol]22 U/E27-16CfdbtsgvpKettering Health Hamiltonerum or plasma albumin/globulin mass ratioOrdered By: Basilio Sam on 08-28-2021 Albumin/Globulin [Mass ratio]1.0 {ratio}[facility] Hamiltonerum or plasma alkaline phosphatase measurement (enzymatic activity/volume)Ordered By: Basilio Sam on 00-78-7217HJM [Catalytic activity/Vol]71 U/Z69-17XchabzlrzKettering Health Hamiltonerum or plasma aspartate aminotransferase measurement (enzymatic activity/volume)Ordered By: Basilio Sam on 01-26-2705HGV [Catalytic activity/Vol]20 U/E50-39CooodhftcKettering Health Hamiltonerum or plasma calcium measurement (mass/volume)Ordered By: Basilio Sam on 82-27-1760Sdkmqqm [Mass/Vol]10.3 mg/dL8.2-10.2FMercy Health Anderson Hospitalerum or plasma chloride measurement (moles/volume)Ordered By: Basilio Sam on 08-28-2021 Chloride [Moles/Vol]111 mmol/M18-542ZrubgfwsdKettering Health Hamiltonerum or plasma glucose measurement (mass/volume)Ordered By: Basilio Sam on 08-28-2021 Glucose [Mass/Vol]85 mg/oX14-068OpnxrnbeaMarymount HospitalComment on above:ADA recommended reference range Random Glucose Reference Range is dependent on time and content of last meal. Glucose of more than 200 mg/dL in a nonstressed, ambulatory subject supports the diagnosis of Diabetes Mellitus.Serum or plasma potassium measurement (moles/volume)Ordered By: Basilio Sam on 34-95-7810Odzriscbj [Moles/Vol]4.2 mmol/L3.5-5.1FMercy Health Anderson Hospitalerum or plasma sodium measurement (moles/volume)Ordered By: Basilio Sam on 42-45-3577Zyejzq [Moles/Vol]139 mmol/X230-978XytzgiotiKettering Health Hamiltonerum or plasma total bilirubin measurement (mass/volume)Ordered By: Basilio Sam on 86-31-7577Hsoipcjya [Mass/Vol]0.6 mg/dL0.3-1.2FMercy Health Anderson Hospitalerum or plasma total carbon dioxide measurement (moles/volume)Ordered By: Basilio Sam on 08-28-2021 CO2 [Moles/Vol]20.2 mmol/L22.0-30.0[facility] Hamiltonerum or plasma urea nitrogen measurement (mass/volume)Ordered By: Basilio Sam on 96-44-6038Dcli nitrogen [Mass/Vol]26 mg/dL9-23[facility] Ann Ag Negativeon 28-74-8938Acvqh Ag NegativeNegativeNormalNegativeMarymount HospitalComment on above:Result Comment: This is a duplicate Ann SARS Antigen (JAYCEE) result to be used for statistical tracking purpose only. PERFORMED BY: [address] [address] PATHOLOGIST CORN MILLER MOHINDER MARKS M.D.Performed By: #### COVID-19 CINDI JUAREZ, [address] #### [facility] [address] [place] [address] USATroponin I High Sensitivityon 13-97-7337Cxntsqdg I High Fobgilqmasl15 pg/mLOff scale high0-20Marymount HospitalComment on above:Result Comment: Critical value result called at 2040 on 08/28/21 PERFORMED BY: [facility] [address] [place] [address] PATHOLOGIST CORN MILLER MOHINDER MARKS M.D.Performed By: #### COVID-19 ANN SOFIANEG, [address] #### [facility] [address] [place] [address] USATroponin I.cardiac [Mass/volume] in Serum or Plasma by High sensitivity methodOrdered By: Basilio Sam on 10-63-6514Iliqqnhp I.cardiac High sensitivity method [Mass/Vol]62 pg/mL0-20[facility] Comment on above:Results called at 2304 on 08/28/21 Vital Signs Date TimeVital SignValuePerforming VhkzcedayLbipjjmr92-41-6677 14:25-0400Body ftyvcl321.1 cmSheng Jerezzer INDUSTRIAL [employer] Work Phone: [facility]10-27-2025 14:25-0400Body mass index (BMI) [Ratio]43.87 kg/m2Sheng Jerezzer INDUSTRIAL [employer] Work Phone: [facility]10-27-2025 14:25-0400Body afimzagukzx20 [degF]Sheng Jerezzer INDUSTRIAL [employer] Work Phone: [facility]10-27-2025 14:25-0400Body tonpag791.57 kgSheng Jerezzer INDUSTRIAL COOK[employer] Work Phone: [facility]10-27-2025 14:25-0400Diastolic blood vfmmrmda44 mm[Hg]Sheng Jerezzer INDUSTRIAL [employer] Work Phone: [facility]10-27-2025 14:25-0400Heart rate 96 /minSheng Jerezzer INDUSTRIAL [employer] Work Phone: [facility]10-27-2025 14:25-0400 Respiratory rate18 /minSheng Jerezzer INDUSTRIAL [employer] Work Phone: [facility]10-27-2025 14:25-6993VyR8% (BldA) [Mass fraction]95 %Sheng Jerezzer [employer]UST[employer] Work Phone: [facility]10-27-2025 14:25-0400Systolic blood lzcqrcva126 mm[Hg]Sheng Jerezzer [employer] Work Phone: [facility] Zdrkjp30-94-6357 14:51-0400Body yrnnal484.1 Syeda Khanna APRN-SEAM FELLER Work Phone: [facility] [employer] Rrwlem45-80-1874 14:51-0400Body mass index (BMI) [Ratio]46.66 kg/i9ZhdfmsnJose Khanna APRN-SEAM [employer]LLER Work Phone: [facility] [employer] Rrvteq72-97-5951 14:51-0400Body vwgpougpzhf58.59 [degF]Jose Khanna APRN-SEAM FELLER Work Phone: [facility] [employer] Tlwxio12-96-2536 14:51-0400Body hhantp012.19 kgJose Khanna APRN-SEAM FELLER Work Phone: [facility]04-07-2025 14:51-0400Diastolic blood gdbhzwfi60 mm[Hg]Jose Khanna APRN-SEAM [employer]LLER Work Phone: [facility]04-07-2025 14:51-0400Heart rate 65 /minJose Khanna APRN-SEAM FELLER Work Phone: [facility] [employer] Makelt78-39-7523 14:51-0400 Respiratory rate18 /minJose Khanna APRN-SEAM FELLER Work Phone: [facility]04-07-2025 14:51-7402MrP0% (BldA) [Mass fraction]97 %Jose Khanna APRN[employer]SEAM FELLER Work Phone: [facility]04-07-2025 14:51-0400Systolic blood efuhtnii128 mm[Hg]Jose Khanna APRN-SEAM FELLER Work Phone: [facility] [employer] Fengpu04-37-3630 15:33-0500Body ofsrgh931.1 Syeda Khanna APRN[employer]SEAM [employer]LLER Work Phone: [facility] [employer] Avjial56-20-2888 15:33-0500Body mass index (BMI) [Ratio]47.29 kg/k9KuxiwcuJose Khanna APRN-SEAM FELLER Work Phone: [facility] [employer] Qqauuw79-77-4585 15:33-0500Body terdoqqviad49.59 [degF]Jose Khanna APRN-SEAM FELLER Work Phone: [facility] [employer] Nfepjl45-03-2972 15:33-0500Body yslgll779.91 kgJose Khanna APRN-SEAM FELLER Work Phone: [facility] [employer] Fuqonl67-72-5611 15:33-0500Diastolic blood hnadelbz90 mm[Hg]Jose Khanna APRN-SEAM [employer]LLER Work Phone: [facility] [employer] Svmopk27-26-8620 15:33-0500Heart rate 76 /minJose Khanna APRN-SEAM FELLER Work Phone: [facility] [employer] Mfljyy92-32-4120 15:33-0500 Respiratory rate18 /minJose Khanna APRN-SEAM FELLER Work Phone: [facility] [employer] Ieeysi25-20-3899 15:33-7520GdS3% (BldA) [Mass fraction]97 %Jose Khanna APRN-JOSE Work Phone: [facility] [employer] Rstxpb18-93-2415 15:33-0500Systolic blood mm[Hg]Jose Khanna APRN-SEAM FELLER Work Phone: [facility] [employer] Noimqr83-71-8439 15:48-0500Body hitdlt730.1 cmNandevonte PHAM Work Phone: [facility] [employer] Tcxajs23-68-8363 15:48-0500Body mass index (BMI) [Ratio]46.59 kg/y9Ezflh Brown LD Work Phone: [facility] Mxsmtr67-66-8335 15:48-0500Body svzelk823.01 kgNandevonte Blancas LD Work Phone: [facility] [employer] Ezvzad04-97-6856 08:48-0500Body mass index (BMI) [Ratio]46.69 kg/x6CtvrzhpJose Khanna APRN-SEAM FELLER Work Phone: [facility] [employer] Fbspte62-80-1227 08:48-0500Body kbkarhvayio27.5 [degF]Jose MENDEZ Work Phone: [facility]11-12-2024 08:48-0500Body roxegd714.28 kgJose Khanna APRN-JOSE Work Phone: [facility]11-12-2024 08:48-0500Diastolic blood mm[Hg]Jose Khanna APRN-SEAM [employer]LLER Work Phone: [facility]11-12-2024 08:48-0500Heart rate 81 /minJose Khanna APRN-JOSE Work Phone: [facility]11-12-2024 08:48-8346NiC6% (BldA) [Mass fraction]97 %Jose Khanna APRN-JOSE Work Phone: [facility]11-12-2024 08:48-0500Systolic blood mm[Hg]Jose Khanna APRN-JOSE Work Phone: [facility]09-19-2024 15:24-0400Body bsvaxf570.1 cmVelvis Khanna APRN-JOSE Work Phone: [facility] [employer] Ukuxtz91-45-7172 15:24-0400Body mass index (BMI) [Ratio]47.03 kg/l3TfmnufeJose Khanna APRN-JOSE Work Phone: [facility] [employer] Exxlsn04-91-1385 15:24-0400Body .49 [degF]Jose Khanna APRN[employer]SEAM FELLER Work Phone: [facility]09-19-2024 15:24-0400Body lqwylm921.19 kgJose Khanna APRN[employer]SEAM FELLER Work Phone: [facility] [employer] Blrvgi59-18-1975 15:24-0400Diastolic blood yckekglk97 mm[Hg]Jose Khanna APRN[employer]SEAM FELLER Work Phone: [facility]09-19-2024 15:24-0400Heart rate 89 /minJose Khanna APRN[employer]SEAM FELLER Work Phone: [facility]09-19-2024 15:24-0400 Respiratory rate20 /minJose Khanna [employer] Work Phone: [facility]09-19-2024 15:24-7238WiP0% (BldA) [Mass fraction]95 %Jose Khanna [employer] Work Phone: [facility]09-19-2024 15:24-0400Systolic blood bqguvdia351 mm[Hg]Jose Khanna [employer] Work Phone: [facility]07-31-2024 15:20-0400Body .1 cmVelvis Khanna APRN-SEAM FELLER Work Phone: [facility]07-31-2024 15:20-0400Body mass index (BMI) [Ratio]48.26 kg/o5KpayfzgJose Khanna APRN[employer]SEAM [employer]LLER Work Phone: [facility]07-31-2024 15:20-0400Body xgfyuvaiypf84.71 [degF]Jose Khanna APRN-SEAM [employer]LLER Work Phone: [facility]07-31-2024 15:20-0400Body qxuqgk171.54 kgJose Khanna [employer] Work Phone: [facility]07-31-2024 15:20-0400Diastolic blood jsdakfyg81 mm[Hg]Jose Khanna APRN-SEAM FELLER Work Phone: [facility]07-31-2024 15:20-0400Heart rate 78 /minJose Khanna APRN-SEAM FELLER Work Phone: [facility]07-31-2024 15:20-0400 Respiratory rate18 /minJose Khanna [employer]USTRIAL [employer] Work Phone: [facility]07-31-2024 15:20-7449RnJ7% (BldA) [Mass fraction]96 %Jose Khanna [employer]USTRI[employer] Work Phone: [facility]07-31-2024 15:20-0400Systolic blood pyhoawpg174 mm[Hg]Jose Khanna [employer] Work Phone: [facility]07-17-2024 15:04-0400Body mlbebs071.1 cmVelvis Khanna IND[employer]RIAL [employer] Work Phone: [facility]07-17-2024 15:04-0400Body mass index (BMI) [Ratio]48.28 kg/t1YnqvgpfJose Khanna [employer] Work Phone: [facility]07-17-2024 15:04-0400Body ltgvjswffok05.2 [degF]Jose Khanna [employer] Work Phone: [facility]07-17-2024 15:04-0400Body eysvkp585.59 kgJose Khanna APRN-SEAM FELLER Work Phone: [facility]07-17-2024 15:04-0400Diastolic blood fglisldg75 mm[Hg]Jose Khanna [employer] Work Phone: [facility]07-17-2024 15:04-0400Heart rate 80 /minJose Khanna [employer] Work Phone: [facility]07-17-2024 15:04-0400 Respiratory rate18 /minJose Khanna [employer] Work Phone: [facility]07-17-2024 15:04-9004EcJ9% (BldA) [Mass fraction]94 %Jose Khanna [employer] Work Phone: [facility] Ukoryg28-99-5734 15:04-0400Systolic blood buakyxkq47 mm[Hg]Jose Khanna APRN-SEAM FELLER Work Phone: [facility] Tockwg40-59-3371 10:34-0400Body havemi069.1 cmVelvis Khanna APRN[employer]SEAM [employer]LLER Work Phone: [facility] Acxmzj93-48-7776 10:34-0400Body mass index (BMI) [Ratio]48.72 kg/w5GjttklcJose Khanna APRN-SEAM FELLER Work Phone: [facility] Efmhre69-02-6040 10:34-0400Body qkymzxguoxe29.1 [degF]Jose Khanna APRN-SEAM FELLER Work Phone: [facility] Jgmash23-48-5666 10:34-0400Body mhjmyh844.81 kgJose Khanna APRN-SEAM FELLER Work Phone: [facility] Ulzark70-12-3642 10:34-0400Diastolic blood oykxxbyv11 mm[Hg]Jose Khanna APRN-SEAM FELLER Work Phone: [facility] CenterComment on above:bp very quiet 07-18-2023 10:34-0400Heart rate70 /minJose Khanna APRN-SEAM FELLER Work Phone: [facility] [employer] Wqvkrf42-58-7351 10:34-0400 Respiratory rate18 /minJose Khanna APRN-SEAM FELLER Work Phone: [facility] Rmiuno39-91-1772 10:34-5398MqA8% (BldA) [Mass fraction]95 %Jose Khanna APRN-SEAM FELLER Work Phone: [facility] Ezjpyv15-27-3247 10:34-0400Systolic blood xjogqspw344 mm[Hg]Jose Khanna APRN-SEAM FELLER Work Phone: [facility] CenterComment on above:bp very quiet 05-10-2023 13:35-0500Body qwqkhi283.1 cmVelvis MENDEZ Work Phone: [facility] Lwfdeb66-48-6987 13:35-0500Body mass index (BMI) [Ratio]48.89 kg/q0WlejxggJose Khanna APRN-SEAM FELLER Work Phone: [facility] Olivvo71-58-2502 13:35-0500Body emtspemehsg49.4 [degF]Jose Khanna APRN-SEAM FELLER Work Phone: [facility] [employer] Tvccur41-23-8836 13:35-0500Body ulcbun286.27 kgJose Khanna APRN-JOSE Work Phone: [facility]03-06-2024 13:35-0500Diastolic blood usactuay98 mm[Hg]Jose Khanna APRN-SEAM FELLER Work Phone: [facility]03-06-2024 13:35-0500Heart rate 84 /minJose Khanna APRN-JOSE Work Phone: [facility] Rubitj76-51-4599 13:35-3457YeM5% (BldA) [Mass fraction]94 %Jose Khanna APRN-JOSE Work Phone: [facility] Ayrfaw56-27-8698 13:35-0500Systolic blood mlfsrhim213 mm[Hg]Jose Khanna APRN-SEAM FELLER Work Phone: [facility]03-01-2024 09:11-0500Body xyegei963.1 cmTereza Carrera APRN-SEAM FELLER Work Phone: [facility] Osglvt67-88-5688 09:11-0500Body mass index (BMI) [Ratio]49.52 kg/z5Dyryegherminio Carrera APRN-SEAM FELLER Work Phone: [facility] Bfhqpz48-78-0489 09:11-0500Body rxjtezzuyqj41.59 [degF]Tereza Carrera APRN[employer]SEAM [employer]LLER Work Phone: [facility] Bxgeni27-59-0005 09:11-0500Body ykjjiy256.99 kgTereza Carrera APRN-SEAM FELLER Work Phone: [facility] Wzbahq40-81-3091 09:11-0500Diastolic blood envixfbg16 mm[Hg]Tereza Carrera APRN-SEAM FELLER Work Phone: [facility] Ldwvno57-20-4872 09:11-0500Heart rate 90 /minTereza Carrera APRN-SEAM FELLER Work Phone: [facility] [employer] Kbbstx93-63-7978 09:11-7834UoW2% (BldA) [Mass fraction]98 %Tereza Carrera APRN[employer]SEAM FELLER Work Phone: [facility] Ssllsw66-52-3580 09:11-0500Systolic blood lrvyiytj476 mm[Hg]Tereza Carrera APRN-SEAM FELLER Work Phone: [facility] [employer] Idljcm71-49-7580 09:06-0500Body geikxu746.1 cmVelvis Khanna APRN-SEAM FELLER Work Phone: [facility] [employer] Swrsmd38-06-6242 09:06-0500Body mass index (BMI) [Ratio]50.46 kg/s5Nhmrgifhermelinda Khanna APRN-SEAM [employer]LLER Work Phone: [facility] Qxfhlv70-26-1896 09:06-0500Body gwmliyswvxw33.3 [degF]Jose Khanna APRN-SEAM FELLER Work Phone: [facility] [employer] [id number] 09:06-0500Body iijmrd899.53 kgJose Khanna APRN-SEAM FELLER Work Phone: [facility] [employer] [id number] 09:06-0500Diastolic blood zwuomngl06 mm[Hg]Jose Khanna APRN-SEAM FELLER Work Phone: [facility] [employer] [id number] 09:06-0500Heart rate 76 /minValehermelinda Khanna APRN-SEAM FELLER Work Phone: [facility] [employer] [id number] 09:06-1143WtO0% (BldA) [Mass fraction]97 %Jose Khanna APRN-SEAM FELLER Work Phone: [facility] [employer] [id number] 09:06-0500Systolic blood llhiemjd934 mm[Hg]Jose Khanna APRN-SEAM FELLER Work Phone: [facility]01-23-2024 10:17-0500Body .1 cmEliana Merino [employer] DEVELOPER CONSULTANT Work Phone: [facility]01-23-2024 10:17-0500Body mass index (BMI) [Ratio]50.12 kg/m2Eliana Merino [employer] DEVELOPER CONSULTANT Work Phone: [facility] [employer] [id number] 10:17-0500Body .59 [degF]Eliana Merino [employer]USTRI[employer] DEVELOPER CONSULTANT Work Phone: [facility] [facility] Iueiaq10-28-8010 10:17-0500Body tcerey553.62 kgEliana Merino INDUSTRIAL COOK-NET DEVELOPER CONSULTANT Work Phone: [facility] Linkage Ffmoam55-65-3189 10:17-0500Diastolic blood wnkhualq04 mm[Hg]Eliana Merino INDUSTRIAL COOK-NET DEVELOPER CONSULTANT Work Phone: [facility] Linkage Vpiqaq25-00-1977 10:17-0500Heart rate 75 /minEliana Merino INDUSTRIAL COOK-NET DEVELOPER CONSULTANT Work Phone: [facility] Amkmyj54-55-9329 10:17-7940LmV5% (BldA) [Mass fraction]98 %Eliana Merino INDUSTRIAL COOK-NET DEVELOPER CONSULTANT Work Phone: [facility]01-23-2024 10:17-0500Systolic blood hwudvpyp533 mm[Hg]Eliana Merino INDUSTRIAL COOK-NET DEVELOPER CONSULTANT Work Phone: [facility]01-03-2024 16:50-0500Body vrsezl450.1 cmVelvis Khanna APRN-JOSE Work Phone: [facility]01-03-2024 16:50-0500Body mass index (BMI) [Ratio]48.99 kg/g8CthciriJose Khanna APRN-JOSE Work Phone: [facility] Linkage Ycvjwi24-92-1718 16:50-0500Body zigzmdgsgyv99.7 [degF]Jose Khanna APRN-JOSE Work Phone: [facility] Linkage Edyxli72-70-1859 16:50-0500Body jfndlo284.54 kgJose Khanna APRN-JOSE Work Phone: [facility]age Zhklrd03-28-8649 16:50-0500Diastolic blood homfusrn45 mm[Hg]Jose Khanna APRN-JOSE Work Phone: [facility] Linkage Ouuaoy55-39-5667 16:50-0500Heart rate 59 /minValehermelinda Khanna APRN-JOSE Work Phone: [facility] Bprtdz43-67-3683 16:50-0715YeU4% (BldA) [Mass fraction]96 %Jose Khanna APRN-JOSE Work Phone: [facility] Linkage Qniveh88-17-9356 16:50-0500Systolic blood dwugmudc720 mm[Hg]Jose Khanna APRN-JOSE Work Phone: [facility] Linkage Kdldiy26-16-4556 13:37-0400Body gylebugocay68.01 [degF]Fly Rauscheh DO Work Phone: bon [facility]04-03-2023 13:37-0400Diastolic blood dyefdxtf52 mm[Hg]Fly Lugohaleh DO Work Phone: bon [facility]04-03-2023 13:37-0400Heart rate95 /minModick Rauscheh DO Work Phone: PASTRID [employer]04-03-2023 13:37-4089EbZ1% (BldA) [Mass fraction]96 %Fly Zapata DO Work Phone: bASTRID [employer]04-03-2023 13:37-0400Systolic blood mm[Hg]Fly Zapata DO Work Phone: EASTRID [employer] [facility]ITALTinkoff DigitalPZFHIH89-03-1799 12:00-0400Body dmgjry581.6 cmNedick Zapata DO Work Phone: ZASTRID [facility] GILBERTGood Travel Software [facility]ITALTinkoff DigitalMFDPLD89-74-7473 07:56-0400 Respiratory rate18 /minModick Zapata DO Work Phone: OASTRID [employer] [facility]ITALTinkoff DigitalURDPDD91-29-8707 06:00-0400Body mass index (BMI) [Ratio]48.7 kg/m4Mfuassmldick Zapata DO Work Phone: TTX [employer]04-02-2023 06:00-0400Body muortw721.7 kgNedick Zapata DO Work Phone: DTL [facility] GIL[facility]ERTGood Travel Software [facility]ITALTinkoff [id number] 14:15-0400Diastolic blood pbopnajr13 mm[Hg][facility] CENTERGood Travel Software [facility]OSPITALTinkoff DigitalQAMNYZ59-91-3670 14:15-0400Heart rate83 /minMth [address] [place], [place] [address]Good [employer] [facility]OSPITALTinkoff DigitalOWRJVB75-81-0906 14:15-0400Systolic blood mm[Hg][address]Good Travel Software [facility]OSPITALTinkoff DigitalSQVYQK81-53-6728 16:15-0400Body ixrbcvphemw10.7 [degF][facility] CENTERGood Travel Software [facility]ITALTinkoff DigitalHKDIOK98-20-3202 16:15-0400 Diastolic blood xvsrijtu94 mm[Hg][facility] CENTERGood Travel Software [facility]ITALTinkoff DigitalRFYTPU52-89-2337 16:15-0400Heart rate78 /minMth [address] [place], [place] [address]Good [employer] [facility]ITALTinkoff DigitalLMQVND99-73-2047 16:15-0400 Respiratory rate18 /minMth [address] [place], [place] [address]Good [employer] [facility]OS[facility]ITALTinkoff DigitalEJCUUU32-09-5168 16:15-8389KdW5% (BldA) [Mass fraction]99 %[facility] 01BON [facility]07-23-2022 16:15-0400 Systolic blood fjpehgcq543 mm[Hg][facility] [address]-22-2022 16:18-0400Body .91 [degF][facility] 01BON [facility]07-22-2022 16:18-0400Heart rate88 /minMth 01BON [facility]07-22-2022 16:18-0400 Respiratory rate18 /minMth [facility]-2022 16:00-0400Body zsrjdlnoudz39.3 [degF][facility] 01BON [facility]07-21-2022 16:00-0400 Diastolic blood txqvuzbw91 mm[Hg][facility] 01BON [facility]07-21-2022 16:00-0400Heart rate89 /minMth 01BON [facility]07-21-2022 16:00-0400 Respiratory rate20 /minMth 01BON [facility]07-21-2022 16:00-0400 Systolic blood ljhddpxa671 mm[Hg][facility] 01BON [facility]07-20-2022 16:03-0400Body ntctbndongd51.6 [degF][facility] 01BON [facility]07-20-2022 16:03-0400Diastolic blood suufgwdl35 mm[Hg][facility] 01BON [facility] Schedulicity 09-22-2021 16:03-0400Heart rate90 /minMth 01BON [facility]07-20-2022 16:03-0400Respiratory rate20 /minMth 01BON [facility]07-20-2022 16:03-0400Systolic blood mm[Hg][facility] 01BON [facility] Schedulicity 09-21-2021 16:00-0400Body mxtnhydrcug60.1 [degF][facility] 01BON [facility] Schedulicity 09-21-2021 16:00-0400Diastolic blood shwskoow37 mm[Hg][facility] 01[facility]ON [facility]ITALT[facility] DigitalNDAYFE58-86-7958 16:00-0400Heart rate88 /minMth [address] [facility] 09-21-2021 16:00-0400Systolic blood qizzaoxu842 mm[Hg][facility] 01BON [facility]07-18-2022 16:30-0400Body zqegcfyjhnv08.49 [degF][facility] 01BON [facility]07-18-2022 16:30-0400Diastolic blood bsmnoskp20 mm[Hg][facility] 01BON [facility]07-18-2022 16:30-0400Heart rate84 /minMth 01BON [facility] 09-20-2021 16:30-0400Systolic blood aserzuyk799 mm[Hg][facility] 01BON [facility]07-17-2022 17:11-0400Body hpabclccqzv16.3 [degF][facility] 01BON [facility]07-17-2022 17:11-0400Diastolic blood gjrpjquo90 mm[Hg][facility] 01BON [facility]07-17-2022 17:11-0400Heart rate90 /minMth 01BON [facility] 09-19-2021 17:11-0400Systolic blood xpwqoedn889 mm[Hg][facility] 01BON [facility]07-16-2022 16:00-0400Body obzaevbylxo86.81 [degF][facility] 01BON [facility]07-16-2022 16:00-0400Diastolic blood tadufyad52 mm[Hg][facility] 01BON [facility]07-16-2022 16:00-0400Heart rate92 /minMth 01BON [facility] 09-18-2021 16:00-0400Respiratory rate18 /minMth 01BON [facility] 09-18-2021 16:00-3033VzR4% (BldA) [Mass fraction]97 %[facility] 01BON [facility]07-16-2022 16:00-0400Systolic blood occlixej137 mm[Hg][facility] 01BON [facility]07-15-2022 16:09-0400Body xkttueuwlfz72.7 [degF][facility] 03BON [facility]07-15-2022 16:09-0400Diastolic blood mquzvpvr43 mm[Hg][facility] 03BON [facility]07-15-2022 16:09-0400Heart rate88 /minMth 03BON ALICRA [facility]ITALYRRCYW22-98-8187 16:09-0400Respiratory rate18 /minMth 03BON SECMARIA ELENA [facility] HOSPITALRIEWWB66-12-2512 16:09-0400Systolic blood aikdnafm972 mm[Hg][facility] 03BON ALCIRA [facility] HOSPITALEODUFJ18-43-7096 16:09-0400Body ftbkfyjxcoy24.71 [degF][facility] 03BON SECMARIA ELENA [facility] HOSPITALNRXWSE68-03-0368 16:09-0400Diastolic blood yznnjfxn65 mm[Hg][facility] 03BON [facility]ERTMARIA ELENA [facility] HOSPITALMNMFUK21-13-9941 16:09-0400Heart rate94 /minMth 03BON [facility]ERTMARIA ELENA [facility] HOSPITALBJBTUW25-97-1797 16:09-0400Respiratory rate18 /minMth 03BON [facility]ERTMARIA ELENA [facility]PITALFPVDVH14-07-8265 16:09-0400Systolic blood rkasjelx320 mm[Hg][facility] 03BON [facility]07-12-2022 15:25-0400Body utjfjdwfqda48.59 [degF][facility] 03BON [facility]07-12-2022 15:25-0400Diastolic blood gcuubdld51 mm[Hg][facility] 03BON [facility]07-12-2022 15:25-0400Heart rate84 /minMth 03BON [facility]07-12-2022 15:25-0400Respiratory rate18 /minMth 03BON [facility]07-12-2022 15:25-0400Systolic blood oecgodas779 mm[Hg][facility] 03BON [facility]07-11-2022 16:28-0400Body vqwwsuudnxx20.7 [degF]Jared Hernandez MD Work Phone: [facility]07-11-2022 16:28-0400Diastolic blood bzulfush08 mm[Hg]Jared Hernandez MD Work Phone: [facility]07-11-2022 16:28-0400Heart rate80 /minJared Hernandez MD Work Phone: [facility]07-11-2022 16:28-0400 Respiratory rate18 /minJared Hernandez MD Work Phone: BON [facility] GILBERTGood Travel Software [facility]ITALTinkoff [id number] 16:28-7217HvY7% (BldA) [Mass fraction]98 %Jared Hernandez MD Work Phone: BON [facility] GIL[facility]ERTGood Travel Software [facility]ITALTinkoff [id number] 16:28-0400Systolic blood jmchqres439 mm[Hg]Jared Hernandez MD Work Phone: [facility]ENTERGood [facility] Software [facility]ITALTinkoff [id number] 11:41-0400Body edatcbswhel33.71 [degF]Myke Soliz DO Work Phone: b[facility] VALDESEGood Travel Software [facility]ITALTinkoff DigitalKISHMY89-28-1009 11:41-0400Diastolic blood gqhxfyyj80 mm[Hg]Myke Soliz DO Work Phone: B [employer] [facility]ITALTinkoff [id number] 11:41-0400Heart rate75 /minMyke Soliz DO Work Phone: [facility] VALDESEGood Travel Software [facility]ITALTinkoff [id number] 11:41-0400 Respiratory rate18 /minMyke Soliz DO Work Phone: B[facility] VALDESEGood Travel Software [facility]ITALTinkoff DigitalCOQNHJ11-83-9479 11:41-4387BsL5% (BldA) [Mass fraction]94 %Myke Soliz DO Work Phone: BON [facility]IL[facility]ERTGood Travel Software [facility]ITALTinkoff [id number] 11:41-0400Systolic blood ufamecht773 mm[Hg]Myke Soliz DO Work Phone: BON [employer] [facility]ITALTinkoff [id number] 04:13-0400Body mass index (BMI) [Ratio]39.92 kg/d0LnkuaihMyke Soliz DO Work Phone: BON [employer]07-09-2022 04:13-0400Body yezwgg785.5 kgWijessica Soliz DO Work Phone: BON [employer]07-05-2022 14:37-0400Body .6 cmWijean carloskenyon Soliz DO Work Phone: bASTRID [facility]06-25-2022 23:12-0400Diastolic blood ysjdknfz759 mm[Hg]PHYSICIAN NO [facility] 08-28-2021 23:12-0400Heart bnmd105 /minPHYSICIAN [facility]06-25-2022 23:12-0400Respiratory rate15 /minPHYSICIAN [facility]06-25-2022 23:12-6143VbK6% (BldA) [Mass fraction]95 %PHYSICIAN NO [facility]06-25-2022 23:12-0400Systolic blood mokfgfyf337 mm[Hg]PHYSICIAN [facility]06-25-2022 18:44-0400Body .[address] [facility]06-25-2022 18:44-0400Body mass index (BMI) [Ratio]41.3 kg/c8ZTFKIILLL [facility]06-25-2022 18:44-0400Body vdetef067.2 kgPHYSICIAN [facility]06-25-2022 18:32-0400Body noyatjelnbv53.1 [degF]PHYSICIAN NO [facility] Encounters Encounter DateEncounter TypeCare ProviderFacilityStart: 01-02-2025 End: 63-00-9052LteobzAyfwaed Boggs CMAProMedica Physicians Internal Medicine - Family MedicineComment on above:Anxiety and depressionStart: 12-30-2024 End: 70-17-6244qoktpnhzeyYLGO D IRENEGreen Cross Hospital Ambulatory PPGStart: 12-30-2024 End: 12-17-8140Cwbmde outpatient visit 25 minutesKyanny Buckner APRN-SEAM FELLER Work Phone: [facility] - Family MedicineComment on above:Screen for STD (sexually transmitted disease) (Primary Dx); Type 2 diabetes mellitus with stage 3 chronic kidney disease and hypertension ([facility]); Primary hypertension; Loose stools; Moderate episode of recurrent major depressive disorder ([facility]); Class 3 severe obesity due to excess calories with serious comorbidity and body mass index (BMI) of40.0 to 44.9 in adult ([facility])Start: 12-24-2024 End: 74-52-2801CmscfcUxbd L Yuclarissathor DO Work Phone: [facility] Physicians Internal Medicine - Family MedicineComment on above:Mixed hyperlipidemiaStart: 11-14-2024 End: 21-78-0928pbmucorrasECKS Y JUNProMedica Barcenas HospitalStart: 10-02-2024 End: 91-65-9810Bxgidktkg encounterMattqian Abilio Nava DO Work Phone: [facility] 230Comment on above: Appointment RequestStart: 10-01-2024 End: 90-25-3567JloiyiHxrubfo Boggs [facility]ITALProMedica Physicians Internal Medicine - Family MedicineComment on above:Mixed hyperlipidemiaStart: 08-09-2024 End: 11-82-6914Olnmzcvce encounterPrincess SegundoMedica Physicians Internal Medicine - Family MedicineStart: 08-08-2024 End: 50-48-1494Awewfsnlu encounterPrincess Grier CMAProMedica Physicians Internal Medicine - Family MedicineStart: 07-09-2024 End: 52-75-1631Uhutgceew encounterMistjed Gary [facility]ITALPro[facility]ica Physicians Internal Medicine - Family MedicineStart: 06-16-2024 End: 50-91-9952DlcztcVzirpalNelly Khanna APRN-SEAM FELLER Work Phone: [facility] Phys[facility] Internal Medicine - Family MedicineComment on above:Seasonal allergic rhinitis due to pollenStart: 06-10-2024 End: 55-80-3085Azyfrr outpatient visit 25 minutesJose Khanna APRN-SEAM FELLER Work Phone: [facility] Physicians Internal Medicine - Family MedicineComment on above:Uncontrolled type 2 diabetes mellitus with hyperglycemia ([facility]) (Primary Dx); Type 2 diabetes mellitus with microalbuminuria, without long-term current use of insulin ([facility]); Anxiety and depression; Type 2 diabetes mellitus with stage 3 chronic kidney disease and hypertension ([facility])Start: 06-10-2024 End: 05-34-9401zbqhkaunrqMRMVWYIHCA [facility] PPG Start: 05-30-2024 End: 25-98-8269ItselhNozxnewNelly MENDEZ Work Phone: [facility] Physicians Internal Medicine - Family MedicineStart: 05-29-2024 End: 62-24-8312ZcsusfAfzzobkNelly MENDEZ Work Phone: [facility] Physicians Internal Medicine - Family MedicineComment on above:Moderate episode of recurrent major depressive disorder ([facility])Start: 04-21-2024 End: 40-63-5469kncyvfexolNzopw Cancelliere RNPChristus [facility]land Medical Center Call CenterStart: 04-02-2024 End: 00-98-6153CxgpdsZfomwgmNelly MENDEZ Work Phone: [facility] Physicians Internal Medicine - Family MedicineComment on above:Uncontrolled type 2 diabetes mellitus with hyperglycemia ([facility]); Type 2 diabetes mellitus with stage 3 chronic kidney disease and hypertension ([facility]); Type 2 diabetes mellitus with microalbuminuria, without long-term current use of insulin ([facility])Start: 03-20-2024 End: 09-61-9714vktzbqebaxJYBJFostoria City Hospitaltart: 03-20-2024 End: 77-73-9745nkussdakdgGXJE YFulton County Health Centertart: 02-29-2024 End: 76-22-6017Vcrycb outpatient visit 25 Tanja MENDEZ Work Phone: [facility] Physicians Internal Medicine - Family MedicineComment on above:Uncontrolled type 2 diabetes mellitus with hyperglycemia (CMS-HCC) (Primary Dx); Type 2 diabetes mellitus with microalbuminuria, without long-term current use of insulin (CMS-HCC); Type 2 diabetes mellitus with stage 3 chronic kidney disease and hypertension (CMS-HCC)Start: 02-29-2024 End: 64-69-0648ahsmskywddYBERIXBTexas [facility] Amb[facility] PPG Start: 02-13-2024 End: 03-08-7425fmzcmcmvvvWOQBJVan Wert County Hospitaltart: 02-13-2024 End: 58-94-6200Xvefgpaqd therapyGrisell Memorial Hospital Work Phone: [facility] - Diabetes and Nutrition EducationComment on above:Type 2 diabetes mellitus with other diabetic kidney complication ([facility]); Essential hypertension, malignant; Stage 3 chronic kidney disease, unspecified whether stage 3a or 3b CKD ([facility]); Morbid obesity ([facility])Start: 01-16-2024 End: 52-36-3241Bvlsigobt encounterJose Khanna APRN-JOSE Work Phone: [facility] - Diabetes Start: 01-16-2024 End: 95-65-4782repyimnetwHSLAZPBNaval Hospital [facility] Ambulatory PPG Start: 01-16-2024 End: 94-37-7346Gtekfa outpatient visit 15 minutesJose Khanna APRN-JOSE Work Phone: [facility] Physicians Internal Medicine - Family MedicineComment on above:Type 2 diabetes mellitus with microalbuminuria, without long-term current use of insulin ([facility])Start: 12-31-2023 End: 08-60-4894efwyuofvmbGxahb Love RNProMedica Call CenterStart: 12-31-2023 End: 15-04-5376Plcnkjhsn department patient visitLEESVILLEHERMELINDA Alonso [facility] Hospitaltart: 12-29-2023 End: 79-66-4407WleokxVsowj Gary [facility]PITALProMedica Physicians Internal Medicine - Family MedicineComment on above:Mixed hyperlipidemiaStart: 11-29-2023 End: 38-82-6971Zbhnnpsnp encounterBethany Forrider CMAProMedica Physicians Internal Medicine - Family MedicineStart: 11-27-2023 End: 17-70-4459Mkbkdw OnlyJose Khanna APRN-JOSE Work Phone: [facility] Physicians Internal Medicine - Family MedicineStart: 11-27-2023 End: 13-27-4268GpulqtLcbtgeuNelly Khanna APRN-JOSE Work Phone: [facility] Physicians Internal Medicine - Family MedicineComment on above:Type 2 diabetes mellitus with microalbuminuria, without long-term current use of insulin ([facility])Start: 11-24-2023 End: 78-80-1562KhorxgIcaaaaaNelly Khanna APRN-SEAM FELLER Work Phone: [facility] Physicians Internal Medicine - Family MedicineComment on above:Type 2 diabetes mellitus with microalbuminuria, without long-term current use of insulin ([facility])Start: 11-23-2023 End: 64-58-3926bchykeqslnESAVVMD J CASTILLOProMedica UK Healthcaretart: 11-23-2023 End: 78-27-1447Cmglzb outpatient visit 25 minutesJose Khanna APRN-JOSE Work Phone: [facility] Physicians Internal Medicine - Family MedicineComment on above:Type 2 diabetes mellitus with microalbuminuria, without long-term current use of insulin ([facility]) (Primary Dx); Moderate episode of recurrent major depressive disorder ([facility]); Mixed hyperlipidemia; Seasonal allergic rhinitis due to pollen; Type 2 diabetes mellitus with stage 3 chronic kidney disease and hypertension ([facility]); Anxiety and depression; Comprehensive diabetic foot examination, type 2 DM, encounter for ([facility]) Start: 11-13-2023 End: 78-02-4860OrhcwbLolvu Gary [facility] Internal Medicine - Family MedicineComment on above:Moderate episode of recurrent major depressive disorder ([facility]); Type 2 diabetes mellitus with stage 3 chronic kidney disease and hypertension ([facility])Start: 10-20-2023 End: 18-94-2261ZxwhsvDgkz Cooper [facility] Internal Medicine - Family MedicineComment on above:Type 2 diabetes mellitus with microalbuminuria, without long-term current use of insulin ([facility])Start: 10-04-2023 End: 30-13-0169Iqyqdint SupportJose Khanna APRN-SEAM FELLER Work Phone: [facility] Physicians Internal Medicine - Family MedicineStart: 10-01-2023 End: 99-72-3468MieggeSvmkcyMarcin Carrera APRN-SEAM FELLER Work Phone: [facility] Physicians Internal Medicine - Family MedicineStart: 09-20-2023 End: 96-01-1806Qkuumd outpatient visit 15 minutesJose Khanna APRN-SEAM FELLER Work Phone: [facility] Physicians Internal Medicine - Family MedicineComment on above:Folliculitis (Primary Dx)Start: 09-05-2023 End: 67-84-0240faackksejnZVUPSUQ J CASTILLOMerBerger Hospital HospitalStart: 07-25-2023 End: 74-01-0122Dhzwmiegd encounterJose Khanna APRN-SEAM FELLER Work Phone: [facility] Physicians Internal Medicine - Family MedicineStart: 07-19-2023 End: 80-63-8965Qnuwow OnlyJose Khanna INDUSTRIAL COOK-SEAM FELLER Work Phone: [facility] Physicians Internal Medicine - Family MedicineComment on above:Type 2 diabetes mellitus with microalbuminuria, without long-term current use of insulin ([facility]) (Primary Dx)Start: 07-18-2023 End: 69-43-2778Gghlpf outpatient visit 25 minutesJose Khanna INDUSTRIAL COOK-SEAM FELLER Work Phone: [facility] Physicians Internal Medicine - Family MedicineComment on above:Type 2 diabetes mellitus with microalbuminuria, without long-term current use of insulin (CMS-HCC) (Primary Dx); Primary hypertension; Current moderate episode of major depressive disorder without prior episode (CMS-HCC); Mixed hyperlipidemiaStart: 06-26-2023 End: 84-43-3977Jkfgzqpc SupportJose Khanna INDUSTRIAL COOK-SEAM FELLER Work Phone: [facility] Physicians Internal Medicine - Family MedicineComment on above:Type 2 diabetes mellitus with microalbuminuria, without long-term current use of insulin ([facility]) (Primary Dx)Start: 06-20-2023 End: [id number] M [facility]BPark[facility] HospitalStart: 06-14-2023 End: [id number] J Castillo [employer] Work Phone: [facility] Internal Medicine - Family MedicineStart: 06-14-2023 End: [id number] outpatient visit 10 minutesJeannabonillahaleigh Gavin Khanna APRN-SEAM FELLER Work Phone: [facility] Internal Medicine - Family MedicineComment on above:Type 2 diabetes mellitus with microalbuminuria, without long-term current use of insulin (CMS-HCC) (Primary Dx)Start: 05-30-2023 Telephone encounterMistjed Vega [facility] Internal Medicine - Family MedicineStart: 05-10-2023 End: 75-91-1784Ceptaz outpatient visit 25 minutesJose Khanna APRN-SEAM FELLER Work Phone: [facility] Internal Medicine - Family MedicineComment on above:Uncontrolled type 2 diabetes mellitus with hyperglycemia (CMS-HCC) (Primary Dx); Moderate episode of recurrent major depressive disorder (CMS-HCC)Start: 16-31-2483Pgvilo Lubna Carrera APRN-[facility] Work Phone: [facility] Internal Medicine - [facility] MedicineStart: 05-05-2023 End: 61-74-0727Apnhao outpatient visit 25 CrowdPlatTereza Carrera APRN-SEAM FELLER Work Phone: [facility] Internal Medicine - Family MedicineComment on above:Type 2 diabetes mellitus with microalbuminuria, without long-term current use of insulin (CMS-HCC) (Primary Dx); Fasting hyperglycemiaStart: 04-19-2023 End: 56-67-5828Ordnlk outpatient visit 25 minutesJose Khanna APRN-[facility] Work Phone: [facility] Internal Medicine - Family MedicineComment on above:Type 2 diabetes mellitus with microalbuminuria, without long-term current use of insulin (CMS-HCC) (Primary Dx); Type 2 diabetes mellitus with stage 3 chronic kidney disease and hypertension (CMS-HCC); Anxiety and depression; Snoring; Mixed hyperlipidemiaStart: 04-03-2023 End: 81-76-3531mozwjvfcshREJDEE Ursula KANGSNhan AvailableStart: 07-57-6623Tfjvqc Latonia Merino INDUSTRIAL COOK-[facility] Work Phone: [facility] Internal Medicine - Family MedicineComment on above:Lesion of tongue (Primary Dx)Start: 03-28-2023 End: 09-72-8216Nfqyge outpatient visit 15 minutesEliana Wilkinson Wilber COOPER-NET DEVELOPER CONSULTANT Work Phone: [facility] Internal Medicine - Family MedicineComment on above:Lesion of tongue (Primary Dx)Start: 80-92-2046Wywyqdsherman Khanna APRN-SEAM FELLER Work Phone: [facility] Physicians Family MedicineComment on above: Seasonal allergic rhinitis due to pollenStart: 03-08-2023 End: 84-75-5059Jdccaa outpatient visit 25 minutesJose Khanna APRN-SEAM FELLER Work Phone: [facility] Internal Medicine - Family MedicineComment on above:Type 2 diabetes mellitus with microalbuminuria, without long-term current use of insulin ([facility]) (Primary Dx); Mixed anxiety and depressive disorder; Mixed hyperlipidemia; Stage 3b chronic kidney disease ([facility])Start: 12-21-2022 End: 16-73-1222nazowedtkyQLTNPMWLL S FEDERICORMercy Mashpee HospitalStart: 11-08-2022 End: 13-79-7064qfculzdtjkHRKIXRMEN S BANNER MD [facility] CENTERRMgiovanniSelect Medical [facility] HospitalStart: 10-21-2022 End: 17-32-8097ygfjnfdlnzHHBIBJL J [facility]St[facility] Start: 10-06-2022 End: 37-14-9851hqegxjcxmxPSLXIHP J CASTILLOWvumedicine [facility] HospitalStart: 10-04-2022 End: 40-34-7234rdymoglmgdHLKCSJWSK S FEDERICOreagan Mashpee HospitalStart: 08-15-2022 End: 82-35-8491Hvptahiijs [facility] Rm 3 MTHZ Cardiac RehabComment on above:Canceled (Patient)Start: 08-09-2022 End: 12-73-3527Rpoibfxppx hospital visit by Luz Christina CNP Work Phone: mthz LaboratoryComment on above:Acute kidney injury superimposed on CKD (HCC); Avitaminosis D; Anemia of chronic renal failure, unspecified CKD stage; Hypercalcemia; Hyperparathyroidism (HCC); Stage 3 chronic kidney disease, unspecified whether stage 3a or 3b CKD (HCC); Acute kidney injury (HCC); Dilated cardiomyopathy (HCC); Primary hypertensionStart: 07-25-2022 End: 53-31-2411lzdtzhgmmpOSYSQNorwalk Memorial Hospitaltart: 07-18-2022 End: 54-39-3420Kqozskkyju hospital visit by [facility] Cardiopulm Rehab Rm 3 MTHZ Cardiac RehabComment on above:ArrivedStart: 07-13-2022 End: 37-45-6875Odgqunexrv hospital visit by [facility] Cardiopulm Rehab Rm 3 MTHZ Cardiac RehabComment on above:ArrivedStart: 07-11-2022 End: 00-95-1166Fivpcggjxn hospital visit by [facility] Cardiopulm Rehab Rm 3 MTHZ Cardiac RehabComment on above:ArrivedStart: 07-07-2022 End: 13-74-9402Pzneqjojpr hospital visit by [facility] Cardiopulm Rehab Rm 3 MTHZ LaboratoryComment on above:Acute kidney injury (HCC); Hypercalcemia; Dilated cardiomyopathy (HCC); Primary hypertensionArrivedStart: 07-04-2022 End: 37-49-9175Oqhhgjkvmo hospital visit by [facility] Cardiopulm Rehab Rm 3 MTHZ Cardiac RehabComment on above:ArrivedStart: 05-23-2022 End: 98-04-8777Yqmjwntggd and management of inpatientMolower bucks hospitalpema Zapata DO Work Phone: stvz Car 2- StepdownStart: 05-23-2022 End: 51-19-5242fmmqovlcinJPVSB PARKERFacility:B6Lvqwn: 10-06-2021 End: 78-58-8506Uonprzncte hospital visit by [facility] Onc Comment on above:HypercalcemiaStart: 09-28-2021 End: 44-01-8865Hbmdvupqgt hospital [facility] by [facility] Op Treatment Rm 01MTHZ LaboratoryComment on above:Acute kidney injury (HCC); Hypercalcemia; Dilated cardiomyopathy (HCC); Primary hypertensionSepsis due to Streptococcus species without acute organ dysfunction (HCC) (Primary Dx)Start: 09-25-2021 End: 07-23-8287Hslzxzbobo hospital [facility] by [facility] Op Treatment [address] [facility] (MOB)Comment on above:Sepsis due to Streptococcus species without acute organ dysfunction (HCC) (Primary Dx)Start: 09-24-2021 End: 72-14-8354Sqjsckpame hospital visit by [facility] Op Treatment [address] [facility] (MOB)Comment on above:Sepsis due to Streptococcus species without acute organ dysfunction (HCC) (Primary Dx)Start: 09-23-2021 End: 49-89-1764Kirfaknqlc hospital [facility] by [facility] [address] [facility] (MOB)Comment on above:Sepsis due to Streptococcus species without acute organ dysfunction (HCC) (Primary Dx)Start: 09-22-2021 End: 66-34-8908Swfevglucu hospital [facility] by [facility] [address] [facility] (MOB)Comment on above:Sepsis due to Streptococcus species without acute organ dysfunction (HCC) (Primary Dx)Start: 09-21-2021 End: 00-56-3329Dxkbfxuokb hospital [facility] by [facility] [address] [facility] (MOB)Comment on above:Sepsis due to Streptococcus species without acute organ dysfunction (HCC) (Primary Dx)Start: 09-20-2021 End: 00-14-2549Ytwdqshauw hospital [facility] [address] [facility] (MOB)Comment on above:Sepsis due to Streptococcus species without acute organ dysfunction (HCC) (Primary Dx)Start: 09-19-2021 End: 05-13-8950Wjtodzgafp hospital [facility] by [facility] [address] [facility] ([facility])Comment on above:Sepsis due to Streptococcus species without acute organ dysfunction (HCC) (Primary Dx)Start: 09-18-2021 End: 10-10-0265Qtrtfqmici hospital [facility] by [facility] [address] [facility] (MOB)Comment on above:Sepsis due to Streptococcus species without acute organ dysfunction (HCC) (Primary Dx)Start: 09-17-2021 End: 19-32-2364Mbnbqohfsb hospital [facility] Op [facility] Rm 03M[facility]Z [facility] (MOB)Comment on above:Sepsis due to Streptococcus species without acute organ dysfunction (HCC) (Primary Dx)Acute kidney injury (HCC) Start: 09-15-2021 End: 23-22-0455Grrbraedeb hospital visit by [facility] Op [facility] Rm 03MT [facility] ([facility]B)Comment on above:Sepsis due to Streptococcus species without acute organ dysfunction (HCC) (Primary Dx)Start: 09-14-2021 End: 49-09-6401Mlhnpyolbb hospital [facility] 03[facility] ([facility])Comment on above:Sepsis due to Streptococcus species without acute organ dysfunction (HCC) (Primary Dx)Start: 09-13-2021 End: 05-13-1030Updaqamcaz hospital visit by Hiro Hernandez MD Work Phone: stvz 3C Med SurgComment on above:Sepsis due to Streptococcus species without acute organ dysfunction (HCC) (Primary Dx)Start: 08-29-2021 End: 12-48-1481Nyvsnghdac and management of inpatientWilliam Martínez DO Work Phone: stvz 4B StepdownStart: 08-28-2021 End: 13-12-4662Fomerhute department patient visitBasilio Sam [facility]art: 08-28-2021 End: 25-32-8823Lkhykkctu department patient visitPHYSICIAN [facility] Procedures DateProcedureProcedure DetailPerforming ClinicianStart: 44-68-6548Rslni depression screening assessmentSheng Buckner INDUSTRIAL COOK-SEAM FELLER Work Phone: Start: 85-05-1359Mltcldazga glycosylated i7dCavhfid Gavin Khanna INDUSTRIAL COOK-SEAM FELLER Work Phone: Start: 13-61-6473Ipwhcanngv glycosylated m4rUppbvpo Gavin Khanna INDUSTRIAL COOK-SEAM FELLER Work Phone: Start: 59-26-9991Gmqwg depression screening assessment Jose Khanna INDUSTRIAL COOK-SEAM FELLER Work Phone: Start: 80-01-3095EDC REFERRAL TO DIABETIC EDUCATION Jacob Divina Sharonsidra DO Work Phone: Start: 90-89-8339Jfdqvb-up visitFollow-upVALEHERMELINDA KHANNAStart: 18-93-3968Qpyeq depression screening assessmentJose Khanna INDUSTRIAL COOK-SEAM FELLER Work Phone: Start: 62-22-3629Otxmcpgybv glycosylated o1bQlsgdpshermelinda Khanna APRN-SEAM FELLER Work Phone: Start: 45-84-8068Azsrb depression screening assessment Jose Khanna APRN-SEAM FELLER Work Phone: Start: 82-50-8924Ogann depression screening assessment Jose Khanna APRN-SEAM FELLER Work Phone: Start: 33-73-1711Jdcnrphgxv glycosylated m1tBvgeperhermelinda Khanna INDUSTRIAL COOK-SEAM FELLER Work Phone: Start: 91-03-0145Axxcy depression screening assessment Jose Khanna APRN-SEAM FELLER Work Phone: Start: 31-09-7510Kakic depression screening assessment Tereza Carrera APRN-SEAM FELLER Work Phone: Start: 06-77-7836Outxy depression screening assessment Tereza Carrera APRN-SEAM FELLER Work Phone: Start: 39-22-1147Jwqcx depression screening assessment Jose Khanna APRN-SEAM FELLER Work Phone: Start: 67-30-9760Iagfk depression screening assessment Eliana Merino APRN-NET DEVELOPER CONSULTANT Work Phone: Start: 81-80-0037Levvytbqls glycosylated h2yDtefpvlhermelinda Khanna INDUSTRIAL COOK-SEAM FELLER Work Phone: Start: 88-09-1846Iwmxl depression screening assessment Jose Khanna APRN-SEAM FELLER Work Phone: Start: 08-09-2022 End: 91-50-0467Awuug metabolic panel calcium totalBalhinder S Maggie MD Work Phone: Start: 96-10-4425Dpflltfdwujw [Mass/volume] in Urine by Test stripJose PECKSEAM FELLER Work Phone: Start: 49-14-8185Skmks metabolic panel calcium total Martin Serrano MD Work Phone: Start: 72-81-4830Qfpuyyx of coronary artery bypass graftingS/P CABG (coronary artery bypass graft)Mth 3Start: 50-70-2492Ftxrtul blood reagent Elyssa Purdy MD Work Phone: [phone]: 06-06-2022 End: 15-54-9981Awodb metabolic panel calcium Rebecca Purdy MD Work Phone: [phone]: 65-67-8381Myxoawhkqq exam chest single viewAdam M Shamir SOLIS Work Phone: [phone]: 44-33-8087Emxleyr blood reagent Elyssa Purdy MD Work Phone: [phone]: 97-03-5717Eehewwqawm exam chest single view Eddie Machado APRN - TRAM INSPECTOR Work Phone: [phone]: 83-68-1647Dgamnzm blood reagent Elyssa Purdy MD Work Phone: [phone]: 03-73-3856Rvpetfv blood reagent Elyssa Purdy MD Work Phone: [phone]: 45-33-6255Wutxsgbtzk exam chest single viewAdam M Shamir PA Work Phone: [phone]: 80-09-0844Iurra metabolic panel calcium total Ariel Purdy MD Work Phone: [phone]: 09-15-4527Cfreydf blood reagent Elyssa Purdy MD Work Phone: [phone]: 72-54-5475Kjjhpdf blood reagent Elyssa Purdy MD Work Phone: [phone]: 06-04-2022 End: 88-84-6685Nibesdl ionizedSyed Nasra Remigio ANN Work Phone: Start: 06-04-2022 End: 13-38-1347Pller metabolic panel calcium Rebecca Purdy MD Work Phone: Start: 18-96-2500Jxqh screen quantitative vancomycin Talib Saldaña MD Work Phone: Start: 21-73-0358Tkqsxydmtg exam chest single viewAdam M Shamir SOLIS Work Phone: Start: 12-17-2560Rlvdltv blood reagent stripAriel Purdy MD Work Phone: Start: 27-96-0945PKKHO METABOLIC PANEL W/ REFLEX TO MG FOR LOW Yancy Saldaña MD Work Phone: Start: 87-49-0428Necj screen quantitative vancomycin Talib Saldaña MD Work Phone: Start: 33-77-6051Jnbahtr blood reagent stripAriel Purdy MD Work Phone: Start: 19-07-0434Cepwyks blood reagent Elyssa Purdy MD Work Phone: Start: 63-81-4186Pduprgz blood reagent Elyssa Purdy MD Work Phone: Start: 02-62-2153Pmtiqrh blood reagent stripSaga Mercer MD Work Phone: Start: 49-99-6825Cbacqhig screenMohammad Brittneydamirjose DO Work Phone: Start: 32-84-3929Ujonyxl blood reagent stripSaga Mercer MD Work Phone: Start: 34-41-2180Yywdlxkupl exam chest single viewAdam M Shamir SOLIS Work Phone: Start: 06-03-2022 End: 31-90-1739Xfnrg metabolic panel calcium totalAriel Purdy MD Work Phone: Start: 06-03-2022 End: 04-03-4840YIEGBCXB BLOOD GAS, Ranjeet Mercer MD Work Phone: Start: 06-03-2022 End: 15-84-2194Zoaq bld gluc mntr dev cleared fda spec home useSaga Mercer MD Work Phone: Start: 26-77-0535HMPDAT ACID,POINT OF Ryan Mercer MD Work Phone: Start: 92-71-6422HUGDWZLE BLOOD GAS, Ranjeet Mercer MD Work Phone: Start: 06-02-2022 End: 21-52-0827Wabp bld gluc mntr dev cleared fda spec home Brina Mercer MD Work Phone: Start: 24-30-0974DOTRLZ ACID,Osmany Mercer MD Work Phone: Start: 06-74-1018Beuhvrd blood reagent stripSgaa Mercer MD Work Phone: Start: 06-02-2022 End: 78-18-0081Wviiprt ionizedDaniel Jasmyn ANN Work Phone: Start: 07-66-7802Yevcltxxwp exam chest single viewAdam M Shamir SOLIS Work Phone: Start: 06-02-2022 End: 04-69-9552Vkckl metabolic panel calcium totalAdam M Shamir SOLIS Work Phone: Start: 50-84-8552QMOKDYEK BLOOD GAS, Ranjeet Mercer MD Work Phone: Start: 35-99-9236RJDSOUG, IONIC (POC)Solange Mercer MD Work Phone: Start: 27-01-3885CZTJXCWPXJ W/GFR POINT OF Ryan Mercer MD Work Phone: Start: 00-25-9272DHGHDVYGQBEA PLUSSolange Mercer MD Work Phone: Start: 00-98-8907TPOSGF ACID,POINT OF CARESolange Mercer MD Work Phone: Start: 82-51-6966ERS GLOBAL HEMOSTASIS (TEG 6S)Solange Mercer MD Work Phone: Wqart: 06-02-2022 End: 49-31-8736BWNOSZQG BLOOD GAS, POCSolange Mercer MD Work Phone: Start: 06-02-2022 End: 86-58-7584VUFAVOZ, IONIC (POC)Solange Mercer MD Work Phone: Start: 06-02-2022 End: 85-07-0976Njna bld gluc mntr dev cleared fda spec home useSaga Mercer MD Work Phone: start: 06-02-2022 End: 28-58-8778Fbsnoigsw [Moles/volume] in Serum or PlasmaSolange Mercer MD Work Phone: Start: 06-02-2022 End: 90-73-2301Dsqyyh [Moles/volume] in Serum or PlasmaSolange Mercer MD Work Phone: start: 06-02-2022 End: 37-86-2670NBNGKVUA BLOOD GAS, Ranjeet Mercer MD Work Phone: start: 06-02-2022 End: 98-82-5728HJLWETM, IONIC (POC)Solange Mercer MD Work Phone: Start: 06-02-2022 End: 84-28-5952Pttu bld gluc mntr dev cleared fda spec home Brina Mercer MD Work Phone: Start: 06-02-2022 End: 81-38-5304Aosxnyjvs [Moles/volume] in Serum or PlasmaSolange Merecr MD Work Phone: start: 06-02-2022 End: 64-44-3603Lpqzgs [Moles/volume] in Serum or PlasmaSolange Mercer MD Work Phone: Start: 18-44-9293UNB GLOBAL HEMOSTASIS (TEG 6S)Solange Mercer MD Work Phone: Start: 42-27-0913TINHU GAP (CALC) Ranjeet Mercer MD Work Phone: Start: 47-85-4683NQNKJONB BLOOD GAS, POCSolange Mercer MD Work Phone: Start: 93-35-4501BAGTVJM, IONIC (POC)Solange Mercer MD Work Phone: Start: 01-49-1132Endertmk [Moles/volume] in Serum or PlasmaSolange Mercer MD Work Phone: Start: 71-26-9591Edcl bld gluc mntr dev cleared fda spec home useSaga Mercer MD Work Phone: Start: 87-84-8215Aztvyvuqp [Moles/volume] in Serum or PlasmaSolange Mercer MD Work Phone: Start: 25-69-6491Ztvirh [Moles/volume] in Serum or PlasmaSolange Mercer MD Work Phone: Start: 06-02-2022 End: 61-25-1281Khefcbcv artery bypass 3 coronary venous graftsDavita Purdy MD Work Phone: Start: 40-50-4901Xebgxue blood reagent stripSaga Mercer MD Work Phone: Start: 06-16-7697Hcqbggr blood reagent stripSaga Mercer MD Work Phone: Start: 18-85-4577Worph metabolic panel calcium total Sarwat Preciado MD Work Phone: Start: 58-19-2302Ppqplebklshclh time partial plasma/whole bloodSolange Mercer MD Work Phone: Start: 00-04-4865Azdoajp blood reagent stripSaga Mercer MD Work Phone: Start: 06-01-2022 End: 87-65-9840Sfxlblionucxvv time partial plasma/whole bloodSolange Mercer MD Work Phone: Start: 30-00-7478Nywlbja blood reagent stripSaga Mercer MD Work Phone: Start: 20-70-6219Ocibl metabolic panel calcium total Solange Mercer MD Work Phone: Start: 13-89-3045Ktqcdfh blood reagent stripSaga Mercer MD Work Phone: Start: 29-32-3330Enbck count platelet automatedEugene Kent DO Work Phone: Start: 04-24-8704Epmzdiz blood reagent stripSaga Mercer MD Work Phone: Start: 69-86-9407Zlfhormobgeklj time partial plasma/whole bloodSolange Mercer MD Work Phone: Start: 75-33-0753Agmmzww blood reagent stripSaga Mercer MD Work Phone: Start: 15-79-2376Cdt routine ecg w/least 12 lds i&r onlyDaryl Jeet Parsons MD Work Phone: start: 05-31-2022 End: 58-53-1906Meodj metabolic panel calcium totalSolange Mercer MD Work Phone: Start: 47-56-3745Hscexle blood reagent stripSaga Mercer MD Work Phone: Start: 67-57-0927FBMVTYQR BLOOD GAS, POCShpedro Mercer MD Work Phone: Start: 80-91-8690Uejq bld gluc mntr dev cleared fda spec home useSaga Mercer MD Work Phone: Start: 05-30-2022 End: 77-54-1962Oaueynb bacterial quanttative colony count urineNicholas Leslie Carter INDUSTRIAL COOK - TRAM INSPECTOR Work Phone: Start: 87-13-1686Dzhxp typing serologic aboNicyazmin Machado INDUSTRIAL COOK - TRAM INSPECTOR Work Phone: Start: 05-30-2022 End: 51-00-8344Welawnosds glycosylated y8dYblruoduyazmin Machado INDUSTRIAL COOK - TRAM INSPECTOR Work Phone: Start: 23-98-6684Onsxqjodus microscopic onlyEddie Machado INDUSTRIAL COOK - TRAM INSPECTOR Work Phone: Start: 49-17-4297Hiiod dip stick/tablet rgnt auto w/o microscopyNicyazmin Machado INDUSTRIAL COOK - TRAM INSPECTOR Work Phone: Start: 69-47-5755Vqfpkgz blood reagent stripEugene Kent DO Work Phone: Start: 10-85-4619Yivyeht blood reagent stripEugene Kent DO Work Phone: Start: 43-48-2554Fmkwvnddlzvjvb time partial plasma/whole bloodEugene Kent DO Work Phone: Start: 05-30-2022 End: 50-43-1655Tofme count platelet automatedEugene Kent DO Work Phone: Start: 98-98-2581Ixreglk blood reagent stripEugene Kent DO Work Phone: Start: 27-98-8181Rrutbca blood reagent stripEugene Kent DO Work Phone: Start: 85-95-2065Mqaummc blood reagent stripEugene Kent DO Work Phone: Start: 65-94-2968JQIIU METABOLIC PANEL W/ REFLEX TO MG FOR LOW Yancy Saldaña MD Work Phone: Start: 05-29-2022 End: 74-04-2465Xtbszjjhzzhmvy time partial plasma/whole bloodEugene Kent DO Work Phone: Start: 38-44-7869Cqkhzfo blood reagent stripEugene Kent DO Work Phone: Start: 12-67-9473Qkguqry blood reagent stripEugene Kent DO Work Phone: Start: 76-39-2174Jvzknxn blood reagent stripEugene Kent DO Work Phone: Start: 80-51-8039Tdwlzniowbdbve time partial plasma/whole bloodEugene Kent DO Work Phone: Start: 88-40-5410Ussmelb blood reagent stripEugene Kent DO Work Phone: Start: 00-58-9459LYUZH METABOLIC PANEL W/ REFLEX TO MG FOR LOW Yancy Saldaña MD Work Phone: Start: 36-93-4634Gvcqd count platelet automatedEugene Kent DO Work Phone: Start: 05-27-2022 End: 81-60-8149Grmuhszgacoptp time partial plasma/whole bloodEugene Kent DO Work Phone: Start: 58-75-1105Ztziscq blood reagent stripEugene Kent DO Work Phone: Start: 65-28-3226Eregiikegizkqo time partial plasma/whole bloodEugene Kent DO Work Phone: Start: 05-27-2022 End: 10-20-7521Htvvxzz ionizedMadeeva Preciado MD Work Phone: Start: 05-27-2022 End: 45-96-4890Pjx-scan uxtr art/artl bpgs compl bi Verónica SOLIS Work Phone: Start: 18-26-3216Enrrpz scan extracranial art compl bi Verónica SOLIS Work Phone: Start: 80-42-2426Fbrnzkm blood reagent stripEugene Kent DO Work Phone: Start: 41-01-7716ZCZDN METABOLIC PANEL W/ REFLEX TO MG FOR LOW Yancy Saldaña MD Work Phone: Start: 96-52-9017Furafudbxljomn time partial plasma/whole bloodEugene Kent DO Work Phone: Start: 75-94-5778Rfnnsvhbvgwptd time partial plasma/whole bloodZainulabedin Rudi MD Work Phone: Start: 31-87-6751Erhszwz blood reagent strip Yanelis Grijalva MD Work Phone: Start: 05-26-2022 End: 41-80-8957Viklctuellezhb time partial plasma/whole bloodMagui Davis MD Work Phone: Start: 02-14-6906Yuaokkw catheterizationTajohn Moyer MD Work Phone: Start: 34-79-3381Vivbafl blood reagent strip Yanelis Grijalva MD Work Phone: Start: 53-55-8504RSFSJ METABOLIC PANEL W/ REFLEX TO MG FOR LOW KMohammad I Mashaleh DO Work Phone: Start: 05-26-2022 End: 41-27-1853Akhqjmafuisalq time partial plasma/whole bloodMaxlamar Bhat MD Work Phone: Start: 68-72-5866Tqtcebj blood reagent strip Yanelis Grijalva MD Work Phone: Start: 59-22-3150Cexxmcf blood reagent strip Yanelis Grijalva MD Work Phone: Start: 31-77-6297Bqisous blood reagent strip Yanelis Grijalva MD Work Phone: Start: 55-58-1331Uayl tthrc r-t 2d w/wom-mode compl spec&colr dMohammad I Mashaleh DO Work Phone: Start: 17-35-2351OIHCM METABOLIC PANEL W/ REFLEX TO MG FOR LOW KMohammad I Mashaleh DO Work Phone: Start: 05-25-2022 End: 77-78-3900Xckbxxhhsipjxi time partial plasma/whole bloodYanelis Grijalva MD Work Phone: Start: 54-19-3084Hsyykzz blood reagent strip Yanelis Grijalva MD Work Phone: Start: 05-24-2022 End: 68-24-1284Nugwjizkxihtyt time partial plasma/whole bloodAlessio Bhat MD Work Phone: Start: 03-37-2415Oaqnfrl blood reagent stripMaxlamar Bhat MD Work Phone: Start: 33-73-9003HURFX METABOLIC PANEL W/ REFLEX TO MG FOR LOW KMohammad I Benny DO Work Phone: Start: 57-23-6282Weogz panelMohammad I Shalomeh DO Work Phone: Start: 23-68-0215Fuflamedyym direct measurement ldl cholesterolMolloydd I Benny DO Work Phone: Start: 67-86-2639Qpm routine ecg w/least 12 lds i&r onlyMohammad I Benny DO Work Phone: Start: 64-62-2996Nayawfd blood reagent stripMosrirammad I Benny DO Work Phone: Start: 28-95-2340Mnnpirvrahmjhg time partial plasma/whole bloodMohammad I Shalomeh DO Work Phone: Start: 63-03-6393Nh retroperitoneal real time w/image completeBrian Gavin Grier MD Work Phone: Start: 87-79-4047EDDWW METABOLIC PANEL W/ REFLEX TO MG FOR LOW KBrian Gavin Grier MD Work Phone: Start: 38-47-5290Svzfqnt blood reagent stripMohammad I Benny DO Work Phone: Start: 26-89-6135Czfot of troponin quantitative Mohammad I Shalomeh DO Work Phone: Start: 77-95-9383Beanedl blood reagent stripMohammad I Benny DO Work Phone: Start: 90-40-9282Asr routine ecg w/least 12 lds i&r onlyModick Zapata DO Work Phone: Start: 05-23-2022 End: 51-69-8542Rqxzosqcgr glycosylated y2fTxdbhocjFly Zapata DO Work Phone: Start: 19-94-9378WHPVIBO, IONIC (POC)Fly Zapata DO Work Phone: Start: 03-19-4588UXWRSLONTR W/GFR POINT OF CARE Fly Zapata DO Work Phone: Start: 23-66-0292OYQSNIARLLXG PLUSModick Zapata DO Work Phone: Start: 95-15-1117RKBWUI ACID,POINT OF CAREFly Zapata DO Work Phone: Start: 04-24-2614WTGBAI BLOOD GAS, POINT OF CARE Fly Zapata DO Work Phone: Start: 13-77-3672Njewcpc total xcpt refractometry urineBrahsan Grier MD Work Phone: Start: 63-76-6276Ejcwkxsqho microscopic onlyBrahsan Grier MD Work Phone: Start: 41-07-1469Qpfao dip stick/tablet rgnt auto w/o microscopyBrahsan Grier MD Work Phone: Start: 78-22-5333Elfjwgtxihddi metabolic panelMohamed Teresa ANN Work Phone: Start: 09-28-2021 End: 99-15-6875Ncgaj metabolic panel calcium totalMartin Serrano MD Work Phone: Start: 02-95-3329Plqcm metabolic panel calcium total Solange Mercer MD Work Phone: Start: 63-84-5019Cawuw count complete auto&auto difrntl wbcBen Cesar PA-C Work Phone: Start: 39-99-1383Lhwkr metabolic panel calcium total Solange Mercer MD Work Phone: Start: 40-04-9357Owgaxpxame examination osseous survey complMoron Moore MD Work Phone: Start: 88-30-4096Cx thorax w/o contrast Florentin Ambriz MD Work Phone: Start: 18-04-9917Snflv count complete auto&auto difrntl wbcBen Nasra Arsenio PA-C Work Phone: Start: 91-63-7245Vqqlb-fetoprotein serumОлег Ambriz MD Work Phone: Start: 83-62-739612 hydroxy includes fractions if performedBen Nasra Arsenio PA-C Work Phone: Start: 23-81-5372POWEN METABOLIC PANEL W/ REFLEX TO MG FOR LOW KAndrkami García Arsenio SOLIS-C Work Phone: Start: 49-36-0785TFCQX METABOLIC PANEL W/ REFLEX TO MG FOR LOW Bee Hinson MD Work Phone: Start: 07-42-0978TUPIFBRP REJECTIONSolange Mercer MD Work Phone: Start: 95-92-4382Cloxu count complete auto&auto difrntl wbcBrian Gracia MD Work Phone: Start: 95-73-2811ZJDWDQID REJECTIONBrian Gracia MD Work Phone: Start: 67-06-9661XVEFM METABOLIC PANEL W/ REFLEX TO MG FOR LOW KAndrkami Howardastrid PA-C Work Phone: Start: 85-82-1955Slr head w/o contrst materialBen García Arsenio PA-C Work Phone: Start: 88-94-6897Pqhcgejgayq planar imaging w/wo subtractionTalib Saldaña MD Work Phone: Start: 61-53-0750NFCNU-19, RAPIDBen García Arsenio APARICIOC Work Phone: Start: 79-21-7418Pyswldwoaqe antibody each ig class Ben García Arsenio ALEXIS Work Phone: Start: 09-08-2021 End: 46-99-4812PQWNWDW, BLOOD 1Ataj García Arsenio ALEXIS Work Phone: Start: 84-87-8079Bxppp of magnesiumBrian Gracia MD Work Phone: Start: 77-70-2473EOAVO METABOLIC PANEL W/ REFLEX TO MG FOR LOW KSrinivas Basil ANN Work Phone: Start: 63-67-2144T-reactive proteinSgaurav Gracia MD Work Phone: Start: 67-68-2328Eooph of magnesiumBen Cesar PA-C Work Phone: Start: 59-51-5778DKOGF METABOLIC PANEL W/ REFLEX TO MG FOR LOW KAnaprminder Nasra Cesar PA-C Work Phone: Start: 51-60-8890AHPMH METABOLIC PANEL W/ REFLEX TO MG FOR LOW KSrinmilkas Basil ANN Work Phone: Start: 52-19-1935Qyyui count complete auto&auto difrntl wbcBrian Gracia MD Work Phone: Start: 70-61-6497Iuoo count misc body fluids w/differential Cecilio Solitario MD Work Phone: Start: 49-26-5273DOVLVCPNPNVqnw Alonso Farley MD Work Phone: Start: 79-25-3967TRPSR METABOLIC PANEL W/ REFLEX TO MG FOR LOW KSrinivas Basil ANN Work Phone: Start: 34-58-2556RGSYMLMI BLOOD GAS, POCBrian Gracia MD Work Phone: Start: 09-06-2021 End: 86-54-7548Efma bld gluc mntr dev cleared fda spec home useSgaurav Gracia MD Work Phone: Start: 60-56-5759Xvrwn gases any combination ph pco2 po2 co2 wqc4Lpbygevaf L Serafin ANN Work Phone: Start: 13-83-9310VLJMX METABOLIC PANEL W/ REFLEX TO MG FOR LOW KSrinivas Basil ANN Work Phone: Start: 82-64-2926Lepro count complete auto&auto difrntl wbcBrian Gracia MD Work Phone: Start: 72-51-8287XUSLDJSKION PANEL W/ REFLEX TO MG FOR LOW Jermaine Grier MD Work Phone: Start: 51-48-0912Hkw spinal canal cervical w/o contrast karylArtur Quiñones MD Work Phone: Start: 12-43-4781PWBRIDZZ BLOOD GAS, POCBrian Gracia MD Work Phone: Start: 09-04-2021 End: 78-33-2610Bhtk bld gluc mntr dev cleared fda spec home useSgaurav Gracia MD Work Phone: Start: 08-73-7936VRXDO METABOLIC PANEL W/ REFLEX TO MG FOR LOW KSrinivas Basil ANN Work Phone: Start: 26-46-8443Izzycwvcng exam chest single view Robert Mcghee MD Work Phone: Start: 89-16-0404Chkydogz hiv-1&hiv-2 single result Shun Cervantes MD Work Phone: Start: 74-66-0526Rqeeg of lipaseRakan Lozano MD Work Phone: Start: 06-76-8480UIZOS METABOLIC PANEL W/ REFLEX TO MG FOR LOW Yani Lozano MD Work Phone: Start: 65-36-3501QPVNQHQH BLOOD GAS, POCBrian Gracia MD Work Phone: Start: 19-30-4864Huno bld gluc mntr dev cleared fda spec home useSgaurav Gracia MD Work Phone: Start: 02-99-4513Ydowdhxmll exam abdomen 1 viewRakan Lozano MD Work Phone: Start: 39-86-7101Pmznjwj blood reagent stripSgaurav Gracia MD Work Phone: Start: 85-40-6535Rhewnhpbgw other sourceMartin Serrano MD Work Phone: Start: 21-36-5518ECMUIECCJVD, URINEMartin Serrano MD Work Phone: Start: 62-13-3871Wfxzk of parathormoneMartin Serrano MD Work Phone: Start: 29-07-7447Gxqdejwmmb antigen each component Martin Serrano MD Work Phone: Start: 04-43-2082GHCOQSP LABORATORY CHARGEMartin Serrano MD Work Phone: Start: 09-02-2021 End: 31-93-4926Hdznw of triglyceridesRakan Lozano MD Work Phone: Start: 62-23-2771XVRCN METABOLIC PANEL W/ REFLEX TO MG FOR LOW Yani Lozano MD Work Phone: Start: 44-85-6866Krfl screen quantitative vancomycin Rakan Lozano MD Work Phone: Start: 65-53-5819Tgvdqxeokk exam chest single view Gisselle Cortez Sra, MD Work Phone: Start: 34-41-5750NVYDGYMG BLOOD GAS, POCBrian Gracia MD Work Phone: Start: 71-07-8220Oss abdomen w/o contrast material Rakan Lozano MD Work Phone: Start: 09-01-2021 End: 50-36-9354Efrxd of triglyceridesBrian Gracia MD Work Phone: Start: 53-46-2877RCQIH METABOLIC PANEL W/ REFLEX TO MG FOR LOW KAmir Gavin Angulo MD Work Phone: Start: 05-63-5424Vlfw screen quantitative vancomycin Issac Angulo MD Work Phone: Start: 33-47-1358LCTLCBHN BLOOD GAS, Jack Gracia MD Work Phone: Start: 08-31-2021 End: 88-23-9524KRTDICV, BLOOD Kimi Lozano MD Work Phone: Start: 24-30-2459Ncreyeyawe exam chest single view Rakan Lozano MD Work Phone: Start: 35-51-0739VOPKI METABOLIC PANEL W/ REFLEX TO MG FOR LOW KAmir Gavin Angulo MD Work Phone: Start: 99-39-4910TDLKYVEL BLOOD GAS, Jack Gracia MD Work Phone: Start: 08-31-2021 End: 29-11-3634Xbdh bld gluc mntr dev cleared fda spec home useSrinivas Basil ANN Work Phone: Start: 35-91-4181Todda centrifuge enhncd id imfluor stain Arden Lozano MD Work Phone: Start: 08-30-2021 End: 57-93-7351Ihv-scan artl celeste abdl/pel/scrot&/rpr orgn comAalvaro Angulo MD Work Phone: Start: 07-56-3963JVLLXTFPSUI PANEL, MOLECULAR, WITH COVID-19Rakan Lozano MD Work Phone: Start: 82-53-1933Fgqzukbnmx microscopic onlyRakan Lozano MD Work Phone: Start: 53-21-3224Lnynq dip stick/tablet rgnt auto w/o microscopyRakan Lozano MD Work Phone: Start: 02-56-7407Chzaggr function panelSalvni Cha MD Work Phone: Start: 18-07-9095Utqxiepzpmndv (pct)Rakan Lozano MD Work Phone: Start: 08-30-2021 End: 70-83-3308OGNKUZG, BLOOD 1Jpaolo Lozano MD Work Phone: Start: 87-40-6644Qnzuqmobzb exam chest single view Rakan Lozano MD Work Phone: Start: 49-58-1023KWHJPEGH BLOOD GAS, POCSrinivas Basil ANN Work Phone: Start: 53-92-7330Ylrr bld gluc mntr dev cleared fda spec home useSrinivas Basil ANN Work Phone: Start: 95-41-8424BGOGT METABOLIC PANEL W/ REFLEX TO MG FOR LOW KAmir Gavin Angulo MD Work Phone: Start: 19-05-1653Ernwfezb totalNini Cha MD Work Phone: Start: 76-84-5934Rtxrf of reninNini Cha MD Work Phone: Start: 19-22-0324Mswcw of reninIssac Angulo MD Work Phone: Start: 57-95-6165BHLBTVUM REJECTIONIssac Angulo MD Work Phone: Start: 50-91-9473HzwdunpxpypecvxuDbjc J Khan MD Work Phone: Start: 32-08-1844Oeqhv of troponin quantitativeIssac Angulo MD Work Phone: Start: 67-67-1505Lly routine ecg w/least 12 lds i&r onlyIssac Angulo MD Work Phone: Start: 68-55-0637Pndxm s aureus methicillin resist amp probe tqLuliberty Hernandez MD Work Phone: Start: 28-81-5488Vhrob of troponin quantitativeIssac Angulo MD Work Phone: Start: 83-73-4561JAJJN METABOLIC PANEL W/ REFLEX TO MG FOR LOW KAmir Gavin Angulo MD Work Phone: Start: 96-24-0704FCXHTEWDSXA CARE EVALUATION ONLY Mercedes Verdin MD Work Phone: Start: 76-47-3547Hlyy transthorc r-t 2d w/wo m-mode rec f-up/lmtdRacheljean carloskenyon Soliz DO Work Phone: Start: 55-38-0408AXOMJYBS BLOOD GAS, POCWipedronasra Soliz DO Work Phone: Start: 42-22-6560ZTTCDJ ACID,POINT OF CAREMyke Soliz DO Work Phone: Start: 29-88-6408Nobk tthrc r-t 2d w/wom-mode compl spec&colr dGtee Arreola MD Work Phone: Start: 05-95-6077Abivorhnqj exam abdomen 1 viewSadie Quintanilla DO Work Phone: Start: 75-79-2354Wztunurama exam chest single view Sadie Quintanilla DO Work Phone: Start: 08-29-2021 End: 06-17-1180Hce bact xcpt urine blood/stool aerobic isolWijean carloskenyon Soliz DO Work Phone: Start: 32-07-7287Rnpj count misc body fluids w/differential countWijean carloskenyon Soliz DO Work Phone: Start: 08-29-2021 End: 22-47-9204Jscrvai body fluid other than bloodWijean carloskenyon Soliz DO Work Phone: Start: 47-42-9353WSIUIWT, IONIC (POC)Myke Soliz DO Work Phone: Start: 02-13-1311JACRMOQAGQ W/GFR POINT OF CAREMyke Soliz DO Work Phone: Start: 91-95-1577RNMFLUODWSQI PLUSWijessica Soliz DO Work Phone: Start: 71-94-3036ITRYLJ ACID,POINT OF CAREWijessica Soliz DO Work Phone: Start: 93-20-0336MBFEAK BLOOD GAS, POINT OF CARE Myke Soliz DO Work Phone: Start: 70-16-6204EGTNN METABOLIC PANEL W/ REFLEX TO MG FOR LOW KGemis Arreola MD Work Phone: Start: 08-29-2021 End: 61-01-5314Dpobqiwjgjo peptideGemis Arreola MD Work Phone: Start: 31-84-2347Ikxnnvmjqf exam chest single view Efrem Arreola MD Work Phone: Start: 99-69-2854Ncs routine ecg w/least 12 lds i&r onlyEfrem Arreola MD Work Phone: Start: 56-59-6610TOXV Antigen (LFIA)PHYSICIAN NO FAMILYHistory of coronary artery bypass graftingS/P CABG (coronary artery bypass graft)Fly Zapata DO Work Phone: Plan of Treatment DateCare ActivityDetailAuthorStart: 56-53-4969Fsial BMI ScreeningAdult BMI ScreeningProGrandview Medical Center Health SystemStart: 29-89-5780Kqyiwfggts ScreeningDepression ScreeningProMartins Ferry Hospitalca Health SystemStart: 38-33-2039Zmgcbcm ScreeningTobacco ScreeningProMartins Ferry Hospitalca Health SystemStart: 97-07-0559Ydihrs Use: Cardiovascular Statin Use: CardiovascularProGrandview Medical Center Health SystemStart: 20-75-7911Nxmpsw Use: DiabeticStatin Use: DiabeticProGrandview Medical Center Health SystemStart: 81-40-2544Ztelat Use: CardiovascularStatin Use: CardiovascularMemorial Hospitalca Health SystemStart: 10-01-2025 Statin Use: DiabeticStatin Use: DiabeticCleveland Clinic Children's [facility] for Rehabilitation SystemStart: 06-30-2025 End: 30-73-5601Gfgdjul encounter crlolmole55/27/2026 4:00 PM EDT Office Visit [facility] [address] [place] [address] Sheng Buckner, INDUSTRIAL [employer]ER [address] [facility] [address] [place] [address] [facility] Hospital[facility]art: 57-85-9376Xgqqe BMI Follow Up PlanAdult BMI Follow Up PlanCleveland Clinic Children's Hospital for Rehabilitation SystemStart: 48-17-3439Aknne BMI ScreeningAdult BMI ScreeningCleveland Clinic Children's Hospital for Rehabilitation SystemStart: 61-65-2163Vgbhcpp ScreeningTobacco ScreeningCleveland Clinic [facility]'s [facility] for Rehabilitation SystemStart: 05-04-1442Ngqma BMI Follow Up PlanAdult BMI Follow Up PlanCleveland Clinic Children's Hospital for Rehabilitation SystemStart: 02-28-2025 Adult BMI ScreeningAdult BMI ScreeningCleveland Clinic Children's Hospital for Rehabilitation SystemStart: 02-28-2025 Depression ScreeningDepression ScreeningCleveland Clinic [facility]'s [facility] Rehabilitation SystemStart: 02-28-2025 Tobacco ScreeningTobacco ScreeningCleveland Clinic Children's [facility] for Rehabilitation SystemStart: 18-86-6957Mgnrw BMI Follow Up PlanAdult BMI Follow Up PlanCleveland Clinic Children's Hospital for Rehabilitation SystemStart: 07-14-3392Yanjp BMI ScreeningAdult BMI ScreeningCleveland Clinic Children's Hospital for Rehabilitation SystemStart: 40-50-2983Hclxdjzjtm ScreeningDepression ScreeningCleveland Clinic [facility]'s Hospital for Rehabilitation SystemStart: 41-71-3899Eloyzlx ScreeningTobacco ScreeningCleveland Clinic [facility] for Rehabilitation SystemStart: 12-30-2024 End: 52-57-7749Tvzoqpm encounter ukwxazgsh47/27/2025 2:15 PM EDT Office Visit [facility] [address] [place] [address] Sheng Buckner, INDUSTRIAL [employer]ER [address] [facility] [address] [place] [address] [facility] Hospitaltart: 77-78-0210Imemv BMI ScreeningAdult BMI ScreeningCleveland Clinic Children's Hospital for Rehabilitation SystemStart: 46-73-9390Zrgfhwt ScreeningTobacco ScreeningCleveland Clinic [facility] for Rehabilitation SystemStart: 89-65-0812Snzyv BMI Follow Up PlanAdult BMI Follow Up PlanCleveland Clinic Children's Hospital for Rehabilitation SystemStart: 11-22-2024 Adult BMI ScreeningAdult BMI ScreeningCleveland Clinic Children's Hospital for Rehabilitation SystemStart: 11-22-2024 Depression ScreeningDepression ScreeningCleveland Clinic Children's Hospital for Rehabilitation SystemStart: 11-22-2024 Diabetic foot examinationDiabetic Foot ExamOn license of [facility] Centertart: 15-89-3176Mnpmrjt ScreeningTobacco ScreeningCleveland Clinic [facility] for Rehabilitation SystemStart: 40-90-4059Thdxikqtv vaccinationInfluenza VaccineCleveland Clinic Children's Hospital for Rehabilitation SystemStart: 02-33-3805Qmaws BMI ScreeningAdult BMI ScreeningCleveland Clinic Children's Hospital for Rehabilitation SystemStart: 91-75-3735Jydchkm ScreeningTobacco ScreeningCleveland Clinic [facility] for Rehabilitation SystemStart: 72-33-9673Yylkw BMI Follow Up PlanAdult BMI Follow Up [facility] Alexander Campustart: 25-58-9818Vjmiz BMI ScreeningAdult BMI ScreeningCleveland Clinic Children's Hospital for Rehabilitation SystemStart: 69-07-1981Ijztolmuqg ScreeningDepression ScreeningOn license of [facility] Centertart: 09-12-2024 End: 66-66-3072Shfgfhe encounter xxxkdqbiu53/10/2025 3:20 PM EDT [facility] [address] [place] [address] Jose Khanna, INDUST[employer] [address] [place] [address] [facility] Hospitaltart: 76-86-1920Mtdle BMI Follow Up PlanAdult BMI Follow Up PlanOn license of [facility] Centertart: 15-38-3195Tuvsh BMI ScreeningAdult BMI ScreeningOn license of [facility] Centertart: 13-22-5336Yixvyllteb ScreeningDepression ScreeningMemorial Hospitalca [facility] SystemStart: 50-91-1546Bpuwvwu ScreeningTobacco ScreeningMemorial Hospitalca [facility] SystemStart: 06-03-2024 End: 56-11-2475Pzcwywk encounter uwlkweova81/31/2025 3:20 PM EDT Office Visit [facility] [address] [place] [address] Jose Khanna, INDUSTRIAL [employer]ER [address] [place] [address] [facility] - Family MedicineStart: 82-34-8226Ukdtp BMI Follow Up PlanAdult BMI Follow Up PlanCleveland Clinic Children's Hospital for Rehabilitation SystemStart: 61-84-8853Yeggd BMI ScreeningAdult BMI ScreeningMemorial Hospitalca [facility] SystemStart: 46-82-9889Ukgycfdies ScreeningDepression ScreeningCleveland Clinic [facility] Rehabilitation SystemStart: 43-86-1144Bkxatum ScreeningTobacco ScreeningMemorial Hospitalca [facility] SystemStart: 71-89-7335Wiykx BMI ScreeningAdult BMI ScreeningMemorial Hospitalca [facility] SystemStart: 99-17-6351Ckpvjvovum ScreeningDepression ScreeningCleveland Clinic [facility] Rehabilitation SystemStart: 63-29-3771Zxskzbg ScreeningTobacco ScreeningMemorial Hospitalca [facility] SystemStart: 90-05-7876Zvved BMI Follow Up PlanAdult BMI Follow Up PlanCleveland Clinic [facility]'s [facility] for Rehabilitation SystemStart: 04-19-2024 Adult BMI ScreeningAdult BMI ScreeningMemorial Hospitalca [facility] SystemStart: 04-19-2024 Depression ScreeningDepression ScreeningMemorial Hospitalca [facility] SystemStart: 04-19-2024 Tobacco ScreeningTobacco ScreeningMemorial Hospitalca [facility] SystemStart: 78-10-1795Hqtll BMI ScreeningAdult BMI ScreeningMemorial Hospitalca [facility] SystemStart: 03-28-2024 Depression ScreeningDepression ScreeningMemorial Hospitalca [facility] SystemStart: 03-28-2024 Tobacco ScreeningTobacco ScreeningMemorial Hospitalca [facility] SystemStart: 07-06-5420Rfqpy BMI Follow Up PlanAdult BMI Follow Up PlanMemorial Hospitalca [facility] SystemStart: 68-09-5464Jkbxt BMI ScreeningAdult BMI ScreeningCleveland Clinic [facility] for Rehabilitation SystemStart: 13-04-2725Yyecaazzcc ScreeningDepression ScreeningCleveland Clinic [facility]'s [facility] for Rehabilitation SystemStart: 52-29-5885Pichujr ScreeningTobacco ScreeningOn license of [facility] Centertart: 02-29-2024 End: 13-21-0172Wqfrldr encounter uypusnmiq99/26/2024 3:20 PM EST [facility] [address] [place] [address] Jose Khanna, INDUSTRIAL [employer]ER [address] [place] [address] [facility] - [facility] MedicineStart: 02-13-2024 End: 72-09-8418Ruxjbvuqb oizufwb5602/13/2024 10:30 AM EST Support Visit [facility] [address] [place] [address] [facility] Bl[facility]asMYM[facility] - Diabetes [facility] Nutrition EducationStart: 28-38-4774Yxcdk BMI Follow Up PlanAdult BMI Follow Up [facility] Alexander Campustart: 11-23-2023 End: 26-19-2141Bstrsbf encounter vdpocityc50/19/2024 3:20 PM EDT [facility] [address] [place] [address] Jose Khanna, INDUSTRIAL [employer]ER [address] [place] [address] [facility] Internal Medicine - [facility] MedicineStart: 37-75-2530Odvmuyhfx vaccinationInfluenza VaccineCleveland Clinic [facility]'s Hospital for Rehabilitation SystemStart: 10-19-2023 End: 26-25-4836Cxropyb encounter dhcwcraog08/15/2024 10:20 AM EDT Office Visit [facility] [address] [place] [address] Jose Khanna, INDUSTRIAL [employer]ER [address] [place] [address] [facility] MedicineStart: 10-18-2023 End: 58-34-1061Xxzuvrr encounter qlulnqmom35/14/2024 10:20 AM EDT Office Visit [facility] [address] [place] [address] Jose Khanna, INDUSTRIAL [employer]ER [address] [place] [address] [facility]: 10-04-2023 End: 93-68-2303Eyalfaha Mtmxavw6810/04/2023 3:00 PM EDT Clinical [facility] Medicine [address] [place] [address] DjzYdaczd [facility]icians Internal Medicine - [facility] Start: 65-12-5633Iinrjpfh foot examinationDiabetic Foot ExamOn license of [facility] Centertart: 70-94-7549GYU test (Diabetes, CKD 3-4, OR last GFR 15-59)GFR test (Diabetes, CKD 3-4, OR last GFR 15-59)[facility]: 08-10-2023 Urine screening for proteinBON [facility]: 07-18-2023 End: 20-38-7767Egacpjl encounter /14/2024 10:20 AM EDT Office Visit [facility] [address] [place] [address] Jose Khanna, INDUSTRIAL [employer]ER [address] [place] [address] [facility] MedicineStart: 20-25-9707VYD test (Diabetes, CKD 3-4, OR last GFR 15-59)GFR test (Diabetes, CKD 3-4, OR last GFR 15-59)[facility]IL[facility]ERTIxtens [facility] Hospitalart: 62-52-1015Lbqdz screening for protein Diabetic Alb to Cr ratio (uACR) testBON [facility] GIL[facility]ERTIxtens [facility] Hospitalart: 2023 End: 22-00-9270Cgpvqblc Lacmvxh4706/28/2023 1:30 PM EDT Clinical Support [facility] [address] [place] [address] FyfVvnzlo [facility] Internal Medicine [facility] Start: 18-52-7310JSS test (Diabetes, CKD 3-4, OR last GFR 15-59)GFR test (Diabetes, CKD 3-4, OR last GFR 15-59)[facility]ENTERI[facility] Hospitalart: 06-07-2023 [facility]ENTERI[facility] Hospitalart: 06-07-2023 End: 37-18-4880Kavooxx encounter tojycvsbq07/03/2024 9:45 AM EDT [facility] [address] [place] [address] Jose Khanna, INDUSTRIAL COOK-[facility] [address] [place] [address] [facility] MedicineStart: 36-16-1388Giley panelBON [facility] Hospitalart: 43-75-3514Yeaih screening for proteinBON [facility] Hospitalart: 05-18-2023 End: 27-65-9939Xoptxwul Bdrprlw4805/18/2023 10:00 AM EDT [facility] [address] [place] [address] KcaPkhoyf [facility]icians [facility]: 05-11-2023 End: 31-24-5737Bnedlmc encounter yomgmdvqn16/07/2024 1:00 PM EST Office Visit [facility] [address] [place] [address] Jose Khanna, INDUSTRIAL C[employer]SE[employer] FELLER [address] [place] [address] [facility] MedicineStart: 04-19-2023 End: 75-38-1405Bwpmkqg encounter ilxdseqxy03/14/2024 9:00 AM EST Office Visit [facility] [address] [place] [address] Jose Khanna, INDUSTRIAL [employer]SE[employer]LLER [address] [place] [address] [facility] MedicineStart: 11-30-2022 End: 81-80-1175Cmfpokk encounter quunruuqd69/27/2023 Office Visit Nephrology Tonie Luna, INDUSTRIAL COOK - SEAM FELLER [address] [place] [address] [facility]: 96-36-3063Dtqudonfu vaccinationInfluenza VaccineCleveland Clinic Children's Hospital for Rehabilitation SystemStart: 75-34-9825Uqixmatdp vaccinationFlu vaccine (Season Ended)[facility]: 60-80-4947PUC [facility]: 10-04-2022 End: 14-11-2969Imtbejt encounter albzduqxi72/01/2023 Office Visit Nephrology Martin Serrano MD [address] [facility] [place] [id number] [facility]: 09-22-2022 End: 38-00-4698Jfirmuj encounter qhnztosnj56/20/2023 [facility]: 09-21-2022 End: 61-53-2856Bmifnja encounter ddwdmhpfa92/19/2023 Appointment [facility] RehabilitationNEHZ Cardiac RehabStart: 09-19-2022 End: 45-08-1753Hcjvtfu encounter ghxdcqhzi72/17/2023 Appointment [facility] RehabilitationNEHZ Cardiac RehabStart: 09-15-2022 End: 40-81-5958Xmhxkzi encounter frewcfdhy18/13/2023 Appointment [facility] RehabilitationNE[facility]Z Cardiac RehabStart: 09-14-2022 End: 47-57-4554Gwpzfzo encounter miyawbaql29/12/2023 Appointment [facility] RehabilitationNE[facility] Cardiac RehabStart: 09-12-2022 End: 66-65-5251Nwtczwv encounter rjncnztyk59/10/2023 Appointment [facility] RehabilitationNE[facility] Cardiac RehabStart: 09-08-2022 End: 78-88-6519Zqeorxs encounter oohpfqpeg44/06/2023 Appointment [facility] RehabilitationNE[facility] Cardiac RehabStart: 09-07-2022 End: 87-30-8222Jxutffr encounter fvxbvguzj82/05/2023 Appointment [facility] RehabilitationNE[facility] Cardiac RehabStart: 09-05-2022 End: 14-02-5211Tpqvvim encounter oobsifsnl63/03/2023 Appointment [facility] RehabilitationNEHZ Cardiac RehabStart: 09-01-2022 End: 62-45-2453Pmiseqh encounter vxaekrsbq04/29/2023 Appointment [facility] RehabilitationNEHZ Cardiac RehabStart: 08-31-2022 End: 49-86-6209Gkvupkz encounter mphqwjqyd12/28/2023 Appointment Card[facility] RehabilitationNEHZ Cardiac RehabStart: 23-25-3618Pagvhahlts A1c measurementBON [facility] Hospitalart: 08-29-2022 End: 91-22-7636Dzmmlno encounter ynmpjzlgq97/26/2023 Appointment [facility] RehabilitationNEHZ Cardiac RehabStart: 08-25-2022 End: 66-40-3517Ftqhsse encounter eggwbrejk75/22/2023 Appointment [facility] RehabilitationNEHZ Cardiac RehabStart: 08-24-2022 End: 55-59-7308Xlhctsz encounter ceftdjmcy09/21/2023 Appointment Card[facility] RehabilitationNEHZ Cardiac RehabStart: 08-22-2022 End: 28-58-1555Rwsmnnc encounter fgvkgidut68/19/2023 [facility]ointment [facility] RehabStart: 08-18-2022 End: 12-75-7068Nsvrkfb encounter procedureMTHZ Cardiac RehabStart: 08-17-2022 End: 69-70-6774Vwytioj encounter fcotnzpor83/14/2023 Appointment [facility] Card[facility] RehabStart: 08-15-2022 End: 89-95-7075Fwcyrio encounter phczhaloe44/12/2023 Appointment [facility] Card[facility] RehabStart: 08-11-2022 End: 69-68-1261Pevvcek encounter dkizkilyo41/08/2023 App[facility]ment [facility] Card[facility] RehabStart: 08-10-2022 End: 24-51-7083Sgiiaqw encounter dxmlmacyg92/07/2023 Appointment [facility] Cardiac RehabStart: 08-09-2022 End: 12-90-7039Ecmicwi encounter /06/2023 Office Visit Nephrology Martin Serrano MD [address] [facility] [place] [place] [facility]: 08-08-2022 End: 88-83-1905Fehfmjh encounter ijhbeszqn88/05/2023 Appointment [facility] Card[facility] RehabStart: 08-04-2022 End: 10-13-5105Kdzeqvx encounter jgyftyadk61/01/2023 Appointment [facility] Card[facility] RehabStart: 08-03-2022 End: 41-39-9396Rfagitc encounter bwtqbzjre30/31/2023 Appointment [facility] Cardiac RehabStart: 08-01-2022 End: 1984Ncvnaco encounter isuzfwkia79/29/2023 App[facility]ment [facility] Card[facility] RehabStart: 07-28-2022 End: 94-32-6025Tvjcmjk encounter uowwlvzoz89/25/2023 App[facility]ment [facility] Cardiac RehabStart: 07-27-2022 End: 77-15-8379Vxlciwr encounter umiqabdlx93/24/2023 App[facility]ment [facility] Cardiac RehabStart: 07-25-2022 End: 17-36-5956Evyctxg encounter pbcylegam40/22/2023 Appointment [facility] Card[facility] RehabStart: 07-21-2022 End: 68-47-3379Lumgbil encounter bzjceyotz01/18/2023 Appointment [facility] Cardiac RehabStart: 07-20-2022 End: 04-42-8973Mdiznuk encounter sjoewrdsz74/17/2023 Appointment [facility] Cardiac RehabStart: 07-18-2022 End: 43-71-5427Lveytrl encounter adxltqtlh60/15/2023 Appointment [facility] Cardiac RehabStart: 07-14-2022 End: 35-52-9897Cbqkfec encounter fiqtrejhj85/11/2023 Appointment [facility] Card[facility] RehabStart: 07-13-2022 End: 04-61-3406Dmoscep encounter guiuwytzf21/10/2023 Appointment [facility] Cardiac RehabStart: 07-12-2022 End: 07-42-0517Ztvnslg encounter caerhcgks35/09/2023 Office Visit Cardiology Alecia England MD [address] [address] [place] [employer] - [facility]: 07-11-2022 End: 58-42-1221Tgjdtcr encounter vbmyhowpw62/08/2023 Appointment [facility] Cardiac RehabStart: 07-07-2022 End: 61-41-2726Elsslur encounter /04/2023 Appointment [facility] Cardiac RehabStart: 07-06-2022 End: 01-96-6122Nfsqage encounter procedureMA[facility] Cardiac RehabStart: 12-07-2021 End: 03-14-2644Ijzhydn encounter gpqemqgwp02/04/2022 Office Visit Nephrology Martin Serrano MD [address] [facility] [place], [place] [facility]: 71-52-5401Zmdmzjnbi vaccinationFlu vaccine (#1)B[facility]: 23-59-5592NAV [facility]: 10-19-2021 End: 80-03-5355Xioevme encounter bmdljozfy70/16/2022 Office Visit Infectious Diseases Ashish Henao MD [address] [address] [facility] Infectious DiseaseStart: 10-06-2021 End: 27-81-4631Gdkzgwp encounter ihqeuewzo66/03/2022 [place] [address] [place], [place] [phone] (Work) [facility]Start: 09-28-2021 End: 29-04-1432Rcojwik encounter procedureNephrology Assoc [facility] Start: 09-27-2021 End: 86-02-9215Tfxafqz encounter tsdxrydzh29/25/2022 Appointment Infusion TherapyM[facility] ([facility])Start: 09-26-2021 End: 72-46-8188Knjppgq encounter ncfmpoqwn22/24/2022 Appointment Infusion TherapyMTHZ [facility] (MOB)Start: 09-25-2021 End: 81-94-4557Fpsfsoq encounter qauzjjaqe06/23/2022 Appointment Infusion TherapyMTHZ [facility] (MOB)Start: 09-24-2021 End: 82-19-9568Flmwscw encounter boavpozeq25/22/2022 Appointment Infusion TherapyM[facility]Z [facility] (MOB)Start: 09-23-2021 End: 03-67-5994Kopqyjo encounter ojqcohcjz34/21/2022 Appointment Infusion TherapyM[facility] ([facility]B)Start: 09-22-2021 End: 61-45-9471Tsyjduu encounter /20/2022 Appointment Infusion TherapyM[facility] ([facility])Start: 09-21-2021 End: 12-64-4953Zlsgsce encounter xkdptodtv90/19/2022 Appointment Infusion TherapyMTHZ [facility] (MOB)Start: 09-20-2021 End: 90-76-4330Xktwxdv encounter umhtbfgjq51/18/2022 Appointment Infusion TherapyMTHZ [facility] (MOB)Start: 09-19-2021 End: 95-84-6007Tfounce encounter dgnlwvrut18/17/2022 Appointment Infusion TherapyMT Specialty Clinic (MOB)Start: 09-19-2021 End: 21-63-1241Xqlme metabolic 2000 panel - Serum or PlasmaBON [facility] Schedulicity Work Phone: start: 09-18-2021 End: 64-28-0686Xoboyxu encounter qalhyoeqw60/16/2022 Appointment [facility] ([facility]B)Start: 09-17-2021 End: 04-55-8060Pjcagma encounter ujjmbxebm14/15/2022 Appointment Infusion TherapyMT Specialty Clinic (MOB)Start: 09-16-2021 End: 62-34-5894Jonxwug encounter /14/2022 Appointment [facility] (MOB)Start: 55-33-6720Kkyuzpkwhu hospital visit by fsuhvdblo26/13/2022 Hospital Encounter [facility] (MOB)Start: 09-14-2021 End: 55-75-9559Bmxzrmj encounter nfensaywu24/12/2022 Appointment OncologySTVZ 3C Med SurgStart: 09-13-2021 End: 53-96-3320sozmmvbzyfAMYY 3C Med SurgStart: 41-13-4700Nuqmnmmq screen Diabetes screenRiverside Doctors' Hospital Williamsburgart: 75-48-0234TTGCARILION ROANOKE COMMUN[facility] Start: 28-34-5652YXmP,Tdap and Td Vaccines (1 - Tdap)DTaP,Tdap and Td Vaccines (1 - Tdap)[facility] SystemStart: 79-76-2894UUhT/Tdap/Td vaccine (1 - Tdap)DTaP/Tdap/Td vaccine (1 - Tdap)[facility] Williamsburgart: 06-29-2003 Hepatitis B vaccine (1 of 3 - Risk 3-dose series)Hepatitis B vaccine (1 of 3 - Risk 3-dose series)[facility]ITALStart: 34-05-0394MVD [facility]: 38-70-8822Ufgsjrvv screeningRiverside [facility]: 99-03-5860Zwfrouquye ScreenDepression ScreenBON [facility] Hospitalart: 11-13-0960DBH [facility]art: 73-39-1239Jmlsictu foot examinationBON [facility]: 58-36-7898Aorelyqjgfvq 0-64 years Vaccine (1 - PCV) Pneumococcal 0-64 years Vaccine (1 - PCV)[facility] MEDICAL CENTERIxtens [facility]ITALStart: 40-37-0300BYD [facility] - GILBERTGood Travel Software TRIHEALTH GOOD SAMARITAN HOSPITALANF Technology [facility]ITALStart: 91-55-1449WQQUE-19 Vaccine (1)COVID-19 Vaccine (1)[facility] CENTERIxtens [facility]ITALStart: 59-45-5828OVS [facility] - GILBERTIxtens [facility] Start: 86-06-6084Nkpopajtb vaccine (1 of 2 - 2-dose childhood series)Varicella vaccine (1 of 2 - 2-dose childhood series)[facility] CENTERGood Travel Software [facility] SAMARITAN HOSPITALANF Technology [facility]ITALStart: 30-65-8533XZP [facility] - GILBERTIxtens [facility] Hospitalart: 42-56-8056GUXGY-19 Vaccine (#1)COVID-19 Vaccine (#1)[facility] CENTERGood Travel Software [facility] SAMAR[facility] HOSPITALANF Technology [facility] Hospitalart: 60-31-6602EGE [facility]OS[facility] - GILBERTCurexo Technology Start: 38-95-1989Fgsodwuu screeningDiabetic Ophthalmology ExamProDelaware County Hospitaltart: 19-97-7950Hukjonv CounselingTobacco CounselingProCity HospitalABG drawCHANDLER REG[facility]AL [facility] [employer] Phone: acapellaBON [employer] Phone: End: 74-57-9270Pmfbn metabolic 2000 panel - Serum or PlasmaCHANDLER REGIONAL MEDICAL [facility]ENTER [employer] Phone: End: 27-58-5410Lxct-2 Glycoprotein AntibodiesCHANDLER REGIONAL [facility] [employer] Phone: [phone]-2 Glycoprotein AntibodiesCHANDLER REGIONAL [facility] [employer] Phone: End: 32-88-9172DSODN BANK REQUESTBON [employer] Phone: End: 86-03-3073Jduyq Bank SpecimenBON [employer] Phone: End: 09-35-5304Uetyysq, IonizedBON [employer] Phone: cARDIAC PHASE IICARDIAC PHASE II Card Rehab Ordered: 07/04/2022 iGlueFulton State Hospitalment on above:Ordered: 07/04/2022ARDIAC PHASE IICARDIAC PHASE II Card Rehab Ordered: 07/07/2022ON [employer] Comment on above:Ordered: 07/07/2022ARDIAC PHASE IICARDIAC PHASE II Card Rehab Ordered: 07/18/2022ON iGlueComment on above:Ordered: 07/18/2022 End: 81-86-6416QUS panel - Blood by Automated countCHANDLER REGIONAL MEDICAL CENTER [employer] Phone: cBC W Auto Differential panel - BloodCHANDLER REGIONAL MEDICAL CENTER [employer] Phone: End: 51-60-1301Dvhswccjx trachomatis DNA [Presence] in Unspecified specimen by VIK with probe detectionChlamydia/Gonorrhoeae by PCR, Urine Microbiology Routine Screen for STD (sexually transmitted disease) 1 Occurrences starting 12/30/2024 until 12/30/2025[facility] Work Phone: Comment on above:1 Occurrences starting 12/30/2024 until 12/30/2025hlamydia trachomatis DNA [Presence] in Unspecified specimen by VIK with probe detectionChlamydia/Gonorrhoeae by PCR, Urine Microbiology Routine Screen for STD (sexually transmitted disease) 12/30/2024 2:56 PM [facility] Medical CenterContinuous pulse oximetryNASHOBA VALLEY MEDICAL CENTERAmicus [employer] Phone: continuous pulse oximetryCHANDLER REGIONAL [facility]ENTER [employer] Phone: culture, Blood 1BON [facility]OS[facility] - GILBERTAmicus [employer] Phone: eZPAPBUNC HEALTH BLUE RIDGE - VALDESEAmicus Medicus Phone: Glucose [Mass/volume] in Serum or PlasmaCHANDLER REGIONAL MEDICAL [facility]ENTER [employer] Phone: End: 98-00-3318Nhoruun [Mass/volume] in Serum or PlasmaCHANDLER REGIONAL MEDICAL CENTER [employer] Phone: End: 05-24-6972Xiahm panelLipid panel Lab Routine Type 2 diabetes mellitus with microalbuminuria, without long-term current use of insulin ([facility]) 1 Occurrences starting 11/23/2023 until 11/22/2024[facility] Work Phone: Comment on above:1 Occurrences starting 11/23/2023 until 11/22/2024 End: 51-08-3906Xizrobbgm [Mass/volume] in Serum or PlasmaBON [employer] Phone: End: 03-66-0703Xgrykcqzfjuz / Creatinine Urine RatioMicroalbumin / Creatinine Urine Ratio Lab Routine Acute kidney injury superimposed on CKD (HCC) 1 Oc currences starting 08/09/2022 until 08/09/2022ON [employer] Work Phone: comment on above:1 Occurrences starting 08/09/2022 until 08/09/2022 End: 60-87-8020Pcpyklhlquza, UrBON [employer] Phone: comment on above:Once for 1 Occurrences starting 08/09/2022 until 08/09/2022Nasal Cannula OxygenBON [employer] Work Phone: Oxygen therapy [Minimum Data Set]BON [employer] Work Phone: Oxygen therapy [Minimum Data Set]BON [employer] Work Phone: Patient referralKettering Health Main Campus Work Phone: End: 68-44-0249PJN Blood GasBON [employer] Work Phone: End: 41-65-1608JJJJPZG RBC (CROSSMATCH), 2 UnitsBON [employer] Work Phone: End: 84-59-8974ZFOJOPRO SPECIMENBON [employer] Work Phone: End: 74-62-2386KUK, Intact with Ionized CalciumBON [employer] Phone: comment on above:1 Occurrences starting 08/09/2022 until 08/09/2022 End: 95-01-4634VKB-Related PeptideBON [employer] Work Phone: [phone]-AfM-2 (COVID-19) N gene [Presence] in Respiratory specimen by VIK with probe detectionKettering Health Main Campus Work Phone: End: 55-19-7292Dqeiygkuuq panelCARILION ROANOKE COMMUNITY HOSPITAL Work Phone: End: 91-92-9340Lzpngtfmklx by PCRTrichomonas by PCR Microbiology Routine Screen for STD (sexually transmitted disease) 1 Occurrencesstarting 12/30/2024 until 12/30/2025ProMercy Health Allen Hospital SystemComment on above:1 Occurrences starting 12/30/2024 until 12/30/2025Trichomonas by PCRTrichomonas by PCR Microbiology Routine Screen for STD (sexually transmitted disease) 12/30/2024 2:56 PM EDT [facility] End: 40-81-4789Yvgwnhy D 25 [facility] Work Phone: comment on above:Once for 1 Occurrences starting 07/07/2022 until 07/07/2022 End: 42-55-1310Llxbeam D 25 HydroxyCARILION [facility]OKE COMM[facility] Work Phone: comment on above:1 Occurrences starting 08/09/2022 until 08/09/2022XR BONE SURVEY COMPLETECARILION ROANOKE COMMUNITY HOSPITAL Work Phone: xr CHEST PORTABLECARILION ROANOKE COMMUNITY HOSPITAL Work Phone: xr CHEST [facility] Work Phone: Immunizations Immunization DateImmunizationNotesCare RqxjvqutIbboyrts68-80-6388vvsawypfj virus vaccine, unspecified formulationValerie Thiago [facility] Work Phone: [facility] Payers DatePayer CategoryPayerPolicy [id number] 2022Medicaid [id number] 2022Medicaid000000000000 [id number] 2.16840.1.213390.3.57[id number] 2.16840.1.941025.3.57[id number] 2.16840.1.034713.3.57[id number] 2.16840.1.155067.3.57[id number] 2.16840.1.003584.3.57[id number] 2.840.1.563295.3.57[id number] 2.16840.1.316655.3.57[id number] 2.16840.1.755121.3.57[id number] 2.16840.1.117880.3.57[id number] 2.16840.1.829120.3.57[id number] 2.16840.1.245627.3.57[id number] 2.16840.1.481699.3.57[id number] 2.16840.1.184308.3.57[id number] 2.16840.1.410819.3.57[id number] 2.16.840.1.089762.3.57[id number] 2.16.840.1.736033.3.57[id number] 2.0.1.350128.3.57[id number] 2.16.840.1.432557.3.57[id number] 2.0.1.119345.3.57[id number] 2.0.1.580328.3.579.2.1286 [id number] 2.0.1.925205.3.579.2.531 Social History DateTypeDetailFacilityStart: 08-28-2021 End: 71-60-2119Mzpmsio smoking status NHISSmoker (finding)[facility] Hamiltontart: 68-30-4767Inf Assigned At [facility] Hospitaltart: 01-31-2016 End: 72-78-6798Ngcjcqh smoking status NHISSmokes tobacco dailyNASHOBA VALLEY MEDICAL CENTERIxtens [facility]ITALStart: 01-31-2016 End: 58-72-1459Eojlniopte smoked current (pack per day) - ReportedMemorial HospitalAlexis Bittar [facility] SystemStart: 08-29-2021 End: 93-58-6705Ppprpto intakeCurrent drinker of alcohol (finding)[employer] Phone: start: 97-45-9361Pnpgdiz SDOH Alcohol Commentsocially [facility] [employer] Phone: start: 56-37-3421Coa Assigned At [facility] [employer] Phone: start: 08-19-2021 End: 01-40-0342Cjonkcir to SARS-CoV-2 (event)Not sureCareOne End: 23-86-1016Livhjov of tobacco useCigarette SmokerCalypto [employer] Systems Phone: start: 10-06-2021 End: 68-13-0531Krtidkg use and exposureFormer smokeless tobacco [employer] Phone: start: 10-19-2021 End: 52-84-0842Wjqxumc smoking status NHISEx-smokerCareOne End: 97-39-9701Djavwnc of tobacco useSnuff [employer] Phone: start: 11-23-2023 End: 79-34-6415Xgipwzwhf beverage intakeEx-drinker (finding)[facility] Linkage SystemStart: 01-26-2022 End: 82-44-0320Xrqujm connection and isolation panelProMercy Health Allen Hospital SystemDo you belong to any clubs or organizations such as mandaeism groups, unions, fraternal or athletic groups, or school groups?NoPKing's Daughters Medical [facility] [place] SystemAre you now , , , , never or living with a partner?Living with partnerCleveland Clinic [facility] Rehabilitation SystemHow often to you have a drink containing alcohol?Monthly or lessProMercy Health Allen Hospital SystemHow many standard drinks containing alcohol do you have on a typical day?1 or 2PKing's Daughters Medical Center [place] SystemHow often do you have 6 or more drinks on 1 occasion?NeverProGrandview Medical [facility] Health SystemHow hard is it for you to pay for the very basics like food, housing, medical care, and heatingNot hard at allProMercy Health Allen Hospital SystemDo you feel stress - tense, restless, nervous, or anxious, or unable to sleep at night because yourmind is troubled all the time - these days [OSQ]To some extent [facility] Linkage SystemStart: 33-68-4592Pjdrpipaf37NlkIrtxji Health SystemStart: 85-13-4739Zobvget CommentOccasionallyC[facility] Clinic [facility] Rehabilitation SystemStart: 10-09-2014 Lluvia (finding)[facility] SystemStart: 09-12-2022 End: 50-75-2815Hyfkpsi use and exposureUser of smokeless tobaccoOhioHealth Marion General HospitalHow hard is it for you to pay for the very basics like food, housing, medical care, and heatingNot very hardOhioHealth [facility] General Hospital Medical Equipment Procedure CodeEquipment CodeEquipment Original TextEquipment IdentifierDates [id number]: [id number]_wuaZzmpk: [id number]: 69-83-5481Grykena blood sugars twice [id number]: Lancet by miscellaneous route in the morning.[id number]: 33-53-6286Pqdnko 1 Pen Needle under the skin in the morning and 1 Pen Needle before bedtime.[id number]: 11-30-2023 End: Pen Needle by miscellaneous route in the morning.[id number] Start: 05-05-2023 End: 21-93-0754lfz 1 PEN NEEDLE to inject MEDICATION subcutaneously as directed [id number]: 10-02-2023 End: 99-94-5843Zudhzw 1 Pen Needle under the skin nightly.[id number]: 11-27-2023 End: 52-24-3734LZM DIRECTED SUBCUTANEOUSLY (UNDER THE SKIN) [id number] Start: 11-27-2023 End: 73-60-5852Lgpsktsq Drug Eluting [id number]: 07-25-2022 Clinical Notes 09-12-2021 to 12-30-2024 Note Date & ExeoUopnCmyutpus72-42-2732 History of Present illness Narrative* Sheng Buckner [...] Moderate episode of recurrent major depressive disorder ([facility]) -depression well controlled. -PHQ9 screen negative. - [...] stage 3 chronic kidney disease and hypertension ([facility]) -reviewed previous A1c from endocrinology in November [...] index (BMI)of 40.0 to 44.9 in adult ([facility]) Body mass index is 43.87 kg/m . [...] each, Rfl: 0 blood-glucose meter,continuous (DEXCOM G7 APPARATUS OPERATOR) misc, 1 Device by miscellaneous route in [...] months (around 06/30/2025) for htn. SSA Liz [facility] Office: [phone] This note is dictated with the use of M*Modal. Please note that this dictation was completed with computer voice recognition software. Quite often unanticipated grammatical, syntax, homophones, and other interpretive errors are inadvertently transcribed by the computer software. Please disregard these errors. Please excuse any errors that have escaped final proofreading. VANESSA Urrutia 12/30/24 1452 documented in this encounterOhioHealth Marion General Hospital09-11-2025 NoteREASON FOR VISIT: Elias Walker is [...] Diabetes education: [YES] Seen by a certified ophthalmic technician (CDE) within 12 months : February 2024 Meal plan: [YES] Seen by a pharmacognosy teacher within 12 months [] Consistent carbohydrate diet [...] [] [] Depression [] [] Patient seeing store gift wrap associate/ tobacco stemmer regularly [x] [] Last exam date: 2023 Last exam results: Patient seeing dentist regularly [] [x] Patient seeing flake drier regularly [] [x] Last exam date: Last [...] sensation [] [] LABS: Recent Data from [facility] Related to POCT Hemoglobin A1c Component 06/10/24 [...] -- -- Total bilirub (more content not included)...[facility] 10-02-2024 Telephone encounter Note* Telephone Encounter - Laney Snell - 10/02/2024 1:30 PM EDT P/c spoke with pt relayed message that Dr. Conrad did not accept him as new pt. [facility] ServicesAotpugvmyp56-25-5126 Miscellaneous Notes* Telephone Encounter - Laney Snell - 10/02/2024 1:30 PM EDT P/c spoke with pt relayed message that Dr. Conrad did not accept him as new pt. documented in this encounterHeartland Behavioral Health ServicesCoohrmnfik24-32-4215 Miscellaneous Notes* Telephone Encounter - Princess Grier CMA - 08/09/2024 11:42 AM EDT [facility] called and said pt's insurance will only cover the Imodium capsules, so they were wondering if you could change RX to capsules. Thank you. documented in this encounterOhioHealth Marion General Hospital06-06-2025 Telephone encounter Note* Telephone Encounter - Princess Grier CMA - 08/09/2024 11:42 AM EDT [facility] called and said pt's insurance will only cover the Imodium capsules, so they were wondering if you could change RX to capsules. Thank you. [facility]06-05-2025 Miscellaneous Notes* Telephone Encounter - Princess Grier CMA - 08/08/2024 4:52 PM EDT Pt called in requesting a script for Imodium. Thank you. * Telephone Encounter - VANESSA Taylor - 08/08/2024 4:52 PM EDT Done documented in this encounterOhioHealth Marion General Hospital06-05-2025 Telephone encounter Note* Telephone Encounter - Princess Grier CMA - 08/08/2024 4:52 PM EDT Pt called in requesting a script for Imodium. Thank you. [facility]06-05-2025 Telephone encounter Note* Telephone Encounter - VANESSA Taylor - 08/08/2024 4:52 PM EDT Done [facility]05-06-2025 Miscellaneous Notes* Telephone Encounter - Marzena Vega CMA - 07/09/2024 4:48 PM EDT Pt called stated he took his last dose of trulicity he stated he thinks you were going to up the dose ? If so can you can send in a refill? documented in this encounterOhioHealth Marion General Hospital05-06-2025 Telephone encounter Note* Telephone Encounter - Marzena Vega CMA - 07/09/2024 4:48 PM EDT Pt called stated he took his last dose of trulicity he stated he thinks you were going to up the dose ? If so can you can send in a refill? [facility]04-07-2025 History of Present illness Narrative* VANESSA Taylor - 06/10/2024 2:40 PM EDT Images from the original note were not included. 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 This has been occurring for over [...] microalbuminuria, without long-term current use of insulin ([facility]) Anxiety and depression - FLUoxetine (PROzac) 20 mg capsule; Take 1 capsule (20 mg total) by mouth in the morning. Type 2 diabetes mellitus with stage 3 chronic kidney disease and hypertension ([facility]) - dapagliflozin propanediol (FARXIGA) 10 mg tablet; take 1 tablet by mouth every morning Uncontrolled type 2 diabetes mellitus with hyperglycemia ([facility]) - POCT Hemoglobin A1c - dulaglutide (TRULICITY) [...] VANESSA Taylor 06/10/24 1531 documented in this encounterOhioHealth Marion General Hospital02-16-2025 Miscellaneous Notes* Telephone Encounter - Alesia [...] an updated order for Lantus [facility] Reason for Disposition [1] Prescription refill request [...] refill for essential medication documented in this encounterOhioHealth Marion General Hospital02-16-2025 Telephone encounter Note* Telephone Encounter - Alesia Edmonds RN - 04/21/2024 2:12 PM EST ----- Message from Joie sent at 04/21/2024 1:49 PM EST ----- Contract: Ronnie Roe is out of his insulin and needs a refill [facility]02-16-[facility] Telephone encounter Note* Telephone Encounter - Alesia Edmonds RN - 04/21/2024 2:12 PM EST Contract: [id number] Ran out of insulin due to dosage changed-Lantus , has been out a few days Pharmacy will not refill medication because they need an updated order for Lantus [facility] Reason for Disposition [1] Prescription refill request for ESSENTIAL medicine (i.e., likelihood of harm to patient if not taken) AND [2] triager unable to refill per department policy Protocols used: Medication Refill and Renewal Call-A-AH [facility] Linkage [id number] Telephone encounter Note* Telephone Encounter - Alesia Edmonds RN - 04/21/2024 2:12 PM EST OC provider updated on change needed for Lantus prescription -per pharmacy still reflecting the oldorder of 35 units, not 70 units, informed will call pharmacy [facility]02-16-2025 Telephone encounter Note* Telephone Encounter - Alesia Edmonds RN - 04/21/2024 2:12 PM EST Informed OC provider will call pharmacy and update order, Verbalized understanding, PCP called for prescription refill for essential medication [facility]01-15-2025 NoteHistory Of Present Illness Elias Walker [...] 3 weeks and was discontinued by his manager business banking. Calcium abnormality related symptoms and history Constitutional [...] [] 4+ Relaxation p (more content not included)...[facility] 02-29-2024 History of Present illness Narrative* Jose Khanna, KENNETH-SEAM FELLER - 02/29/2024 3:20 PM EST Images from the original note were not included. [address] [place] [address] SUBJECTIVE: Patient ID: Elias Walker is a 38 y.o. male. Chief Complaint Patient presents with Diabetes Been running high. 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 He was previously taking Trulicity which [...] microalbuminuria, without long-term current use of insulin ([facility]) - POCT Hemoglobin A1c Uncontrolled type 2 diabetes mellitus with hyperglycemia ([facility]) - tirzepatide (MOUNJARO) 7.5 mg/0.5 mL pen injector; Inject 7.5 mg under the skin every 7 days. Type 2 diabetes mellitus with stage 3 chronic kidney disease and hypertension ([facility]) - tirzepatide (MOUNJARO) 7.5 mg/0.5 mL pen injector; Inject 7.5 mg under the skin every 7 days. Type 2 DM Today A1c 8.4%. Was 7.5% Blood sugars started to trend upwards approximately 2-3 weeks ago. Average has been mid to higher 200's per day. 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 He was previously taking -Trulicity which [...] VANESSA Taylor 02/29/24 1620 documented in this encounterOhioHealth Marion General Hospital12-10-2024 History of Present illness Narrative* ANKIT [...] 9.6 oz) 12/31/23 127.9 kg (282 lb) Pearce Body Weight Pearce body weight: 61.5 kg (135 lb 9.3 oz) Adjusted ideal body weight: 87.7 kg (193 lb 5.6 oz) Lab Results: POCT A1c Lab Results Component Value Date [id number] 7.5 (A) 11/23/2023 A1c Lab Results Component [...] lunch meal, and dinner maybe out at [place] restaurants or food at home. He does [...] instead) Diagnosis: Excessive carbohydrate intake, Overweight/obesity, and Pjol-qkv-kubzrnorj-related knowledge deficit Related to Cvre-asa-korudsnbk-related knowledge deficit As evidenced by Estimated energy [...] Diabetes and Nutrition Education documented in this encounterMemorial HospitalReadyCart [id number] Miscellaneous Notes* Telephone Encounter - Cande Ndiaye - 01/16/2024 9:52 AM EST We received a referral for education for Elias Walker 1985. However per [facility] Guidelines the services requested need to be ordered by an MD or DO. Please see pended order and have MD/DO sign if agreeable. Thank you [facility] * Telephone Encounter - Jose Khanna APRN-JSOE - 01/16/2024 9:52 AM EST I printed the requisition. Dr. Campos signed the order. What is the number to fax? * Telephone Encounter - Cande Ndiaye - 01/16/2024 9:52 AM EST [phone]. Thank you. * Telephone Encounter - Cande Ndiaye - 01/16/2024 9:52 AM EST We received your fax, but there are no services requested (MNT or DSMT), and there is no signature.I pended an order to the original message. It might be easier to have an MD/DO just sign it in [facility]. * Telephone Encounter - Cande Ndiaye - 01/16/2024 9:52 AM EST Spoke with Vivien at 's office. She requested that I fax a blank referral form to her so she can have Dr. Campos fill out and sign. Form faxed. * Telephone Encounter - Cande Ndiaye - 01/16/2024 9:52 AM EST Order faxed by documented in this encounterOhioHealth Marion General Hospital11-12-2024 Telephone encounter Note* Telephone Encounter - Cande Ndiaye - 01/16/2024 9:52 AM EST We received a referral for education for Elias Walker 1985. However per [facility] Guidelines the services requested need to be ordered by an MD or DO. Please see pended order and have MD/DO sign if agreeable. Thank you [facility] Diabetes and Nutrition Education [facility]11-12-2024 Telephone encounter Note* Telephone Encounter - VANESSA Taylor - 01/16/2024 9:52 AM EST I printed the requisition. Dr. Campos signed the order. What is the number to fax? [facility]11-12-2024 Telephone encounter Note* Telephone Encounter - Cande Ndiaye - 01/16/2024 9:52 AM EST [phone]. Thank you. [facility]11-12-2024 Telephone encounter Note* Telephone Encounter - Cande Ndiaye - 01/16/2024 9:52 AM EST We received your fax, but there are no services requested (MNT or DSMT), and there is no signature.I pended an order to the original message. It might be easier to have an MD/DO just sign it in [facility]. [facility]11-12-2024 Telephone encounter Note* Telephone Encounter - Cande Ndiaye - 01/16/2024 9:52 AM EST Spoke with Vivien at MD's office. She requested that I fax a blank referral form to her so she can have Dr. Campos fill out and sign. Form faxed. [facility]11-12-2024 Telephone encounter Note* Telephone Encounter - Cande Ndiaye - 01/16/2024 9:52 AM EST Order faxed by [facility]11-12-[facility] History of Present illness Narrative* Jose Khanna, KENNETH-SEAM FELLER - 01/16/2024 8:40 AM EST Images from the original note were not included. [address] [facility] [address] SUBJECTIVE: Patient ID: Elias Walker is [...] microalbuminuria, without long-term current use of insulin ([facility]) - insulin detemir U-100 (LEVEMIR FLEXPEN) 100 [...] VANESSA Taylor 01/16/24 0917 documented in this encounterVermont State HospitalEasyCopay10-27-2024 Miscellaneous Notes* Telephone Encounter - Ryan Siddiqi [...] - High Blood Sugar-A-AH documented in this encounterOhioHealth Marion General Hospital10-27-2024 Telephone encounter Note* Telephone Encounter - Ryan Siddiqi RN - 12/31/2023 11:58 AM EDT ----- Message from Joie sent at 12/31/2023 11:47 AM EDT ----- Contract: 198 Juan sugar is 372 and last night it was over 400 he feels fine other then sleeping [facility]10-27-2024 Telephone encounter Note* Telephone Encounter - [...] used: Diabetes - High Blood Sugar-A-AH [facility]09-25-2024 Miscellaneous Notes* Telephone Encounter - Zenaida [...] to pt. Verbalizes understanding. documented in this encounterOhioHealth Marion General Hospital09-25-2024 Telephone encounter Note* Telephone Encounter - [...] pentips) 31 gauge x 1/4'' needle. [facility]09-25-2024 Telephone encounter Note* Telephone Encounter - VANESSA Taylor - 11/29/2023 3:54 PM EDT Done [facility]09-25-2024 Telephone encounter Note* Telephone Encounter - Zenaida Mayer CMA - 11/29/2023 3:54 PM EDT Relayed to pt. Verbalizes understanding. [facility]09-19-20[facility] History of Present illness Narrative* VANESSA Taylor - 11/23/2023 3:20 PM EDT Images from the original note were not included. [address] [facility] [address] SUBJECTIVE: Patient ID: Elias Walker is a [...] being taken. He does not see a flake drier. Eye exam is not current. Hypertension This [...] improvement. Hypertensive end-organ damage includes kidney disease, CAD/IL, CVA and heart failure. Identifiable causes of [...] microalbuminuria, without long-term current use of insulin ([facility]) - POCT Hemoglobin A1c - liraglutide (VICTOZA [...] Moderate episode of recurrent major depressive disorder ([facility]) - cariprazine (VRAYLAR) 1.5 mg capsule; Take [...] stage 3 chronic kidney disease and hypertension ([facility]) - dapagliflozin propanediol (FARXIGA) 10 mg tablet; take 1 tablet by mouth every morning Anxiety and depression - FLUoxetine (PROzac) 20 mg capsule; Take 1 capsule (20 mg total) by mouth in the morning. Comprehensive diabetic foot examination, type 2 DM, encounter for ([facility]) Other orders - lisinopriL (PRINIVIL,ZESTRIL) 5 mg [...] VANESSA Taylor 11/23/23 1610 documented in this encounterOhioHealth Marion General Hospital07-31-2024 History of Present illness Narrative* VANESSA Taylor - 10/04/2023 3:00 PM EDT CGM Application Instructed patient and his girlfriend, Nicolle on how to apply the Dexcom 7. Nicolle states that she understands and I have instructed them if they need to come back they can for his next application. VANESSA Taylor 10/04/23 1719 documented in this encounterOhioHealth Marion General Hospital07-28-2024 Miscellaneous Notes* Telephone Encounter - VANESSA Linton - 10/01/2023 9:18 AM EDT refill documented in this encounterOhioHealth Marion General Hospital07-28-2024 Telephone encounter Note* Telephone Encounter - VANESSA Linton - 10/01/2023 9:18 AM EDT refill [facility]07-17-2024 History of Present illness Narrative* VANESSA Taylor - 09/20/2023 3:00 PM EDT Images from the original note were not included. [address] [place] [address] SUBJECTIVE: Patient ID: Elias Walker is a [...] VANESSA Taylor 09/25/23 1012 documented in this encounterMemorial HospitalReadyCart [id number] Miscellaneous Notes* Telephone Encounter - Gladys Veras - 07/25/2023 11:09 AM EDT Called to reschedule 10/17 appointment documented in this encounterOhioHealth Marion General Hospital05-21-2024 Telephone encounter Note* Telephone Encounter - Gladys Veras - 07/25/2023 11:09 AM EDT Called to reschedule 10/17 appointment [facility]05-14-20[facility] History of Present illness Narrative* Jose Khanna, KENNETH-JOSE - 07/18/2023 10:20 AM EDT Images from the original note were not included. [address] [facility] [address] SUBJECTIVE: Patient ID: Elias Walker [...] being taken. He does not see a flake drier. Eye exam is not current. Hypertension This [...] improvement. Hypertensive end-organ damage includes kidney disease, CAD/IL, CVA and heart failure. Identifiable causes of [...] microalbuminuria, without long-term current use of insulin ([facility]) - POCT Hemoglobin A1c - semaglutide (OZEMPIC) 0.25 mg or 0.5 mg(2 mg/1.5 mL) pen injector; Inject 0.5 mg under the skin every 7 days. - insulin detemir U-100 (LEVEMIR FLEXPEN) 100 unit/mL (3 mL) insulin pen; Inject 20 Units under theskin nightly. Primary hypertension Current moderate episode of major depressive disorder without prior episode ([facility]) Mixed hyperlipidemia A1c 8.2%, was 7.3 Discontinue [...] VANESSA Taylor 07/18/23 1214 documented in this encounterOhioHealth Marion General Hospital04-22-2024 History of Present illness Narrative* Yuli Patel CMA - 06/26/2023 10:45 AM EDT Pt came in to be observed as to how to put Dexcom patch on. Significant other was taught also and it was uploaded the day of visit. documented in this encounterOhioHealth Marion General Hospital04-10-2024 History of Present illness Narrative* VANESSA Taylor - 06/14/2023 1:30 PM EDT This patient was in today for application of his Dexcom and instructions on apply them at home. Nicolle, his girl friend, was here with him so she can administer this at home. VANESSA Taylor 06/19/23 1745 documented in this encounterOhioHealth Marion General Hospital03-26-2024 Miscellaneous Notes* Telephone Encounter - Marzena [...] I sent an email to Joe at [facility] to find out what is going [...] info which I provided. documented in this encounterOhioHealth Marion General Hospital03-26-2024 Telephone encounter Note* Telephone Encounter - Marzena Vega CMA - 05/30/2023 1:13 PM EDT Pt's girlfriend called wondering how long it was going to take to get his dexcom in or if its the insurance holding it up ? [facility]03-26-20[facility] Telephone encounter Note* Telephone Encounter - VANESSA Taylor - 05/30/2023 1:13 PM EDT Vivien- do you know any information in regards to this? [facility]03-26-20[facility] Telephone encounter Note* Telephone Encounter - Vivien Rooney CMA - 05/30/2023 1:13 PM EDT I sent an email to Joe ying [facility] to find out what is going on. [facility]03-26-20[facility] Telephone encounter Note* Telephone Encounter - Marzena Vega CMA - 05/30/2023 1:13 PM EDT Thank you ladies [facility]03-26-2024 Telephone encounter Note* Telephone Encounter - Vivien Rooney CMA - 05/30/2023 1:13 PM EDT I called April and she did not get the fax. I just sent the fax to her again [facility] Linkage [id number] Telephone encounter Note* Telephone Encounter - Kelsy Alex - 05/30/2023 1:13 PM EDT Maite called back confirming receipt of the latest scan. She just needed his insurance info which I provided. [facility] Linkage [id number] History of Present illness Narrative* Jose Khanna APRN-SEAM FELLER - 05/10/2023 1:40 PM EST Images from the original note were not included. [address] [facility] [id number] SUBJECTIVE: Patient ID: Elias Walker is a [...] VANESSA Taylor 05/10/23 1653 documented in this encounterOhioHealth Marion General Hospital03-05-2024 History of Present illness Narrative* VANESSA [...] PCP in 2 days. VANESSA Linton 05/09/23 4512 documented in this encounterOhioHealth Marion General Hospital03-01-2024 History of Present illness Narrative* Tereza Carrera, INDUSTRIAL COOK-SEAM FELLER - 05/05/2023 9:10 AM EST [address] [place] [address] Patient: Elias Walker Date of : 1985 Encounter Date: 05/05/2023 History of Present Illness: The patient is a 37 y.o. male, an established patient, and is here for Chief Complaint Patient presents with Diabetes Sugar been [id number] . HPI This pt is new to me, his PCP was unavailable. Medical history reviewed with pt, he has partial recall memory of his extensive medical history/confirmed most with chart. Pt brought his FBG log in andelk creeky of his sugars are >250 with several [...] about having low-sodium. He also sees a manager business banking and he has undergone a CABG about 7 months ago he thinks. He does not recall any recent follow-up with Cardiology. Problem List Items Addressed This Visit Endocrine Type 2 diabetes mellitus with microalbuminuria, without long-term current use of insulin ([facility]) - Primary Relevant Medications insulin detemir U-100 [...] microalbuminuria, without long-term current use of insulin ([facility]) Fasting hyperglycemia Other orders - insulin detemir [...] He should stay well hydrated as his manager business banking does not have him on a fluid [...] VEGA APRN-CNP 05/08/23 0930 documented in this encounterOhioHealth Marion General Hospital02-14-2024 History of Present illness Narrative* Jose Khanna, VANESSA - 04/19/2023 9:00 AM EST Images from the original note were not included. [address] [place] [address] SUBJECTIVE: Patient ID: Elias Walker is a [...] being taken. He does not see a flake drier. Eye exam is not current. Hypertension This [...] improvement. Hypertensive end-organ damage includes kidney disease, CAD/IL, CVA and heart failure. Identifiable causes of [...] microalbuminuria, without long-term current use of insulin ([facility]) - dulaglutide 3 mg/0.5 mL pen injector; Inject 3 mg under the skin every 7 days. Type 2 diabetes mellitus with stage 3 chronic kidney disease and hypertension ([facility]) - dapagliflozin propanediol (FARXIGA) 10 mg tablet; [...] VANESSA Taylor 04/24/23 0935 documented in this encounterOhioHealth Marion General Hospital01-23-2024 History of Present illness Narrative* MAGUI [...] MAGUI Rockwell 03/28/23 1131 documented in this encounterMemorial HospitalReadyCart [id number] History of Present illness Narrative* Jose Khanna, KENNETH-SEAM FELLER - 03/08/2023 4:30 PM EST Images from the original note were not included. Chief Complaint Patient presents with Follow-up [address] [place] [address] SUBJECTIVE: Patient ID: Elias Walker is [...] being taken. He does not see a flake drier.Eye exam is not current. Hypertension This is [...] improvement. Hypertensive end-organ damage includes kidney disease, CAD/IL, CVA and heart failure. Identifiable causes of [...] microalbuminuria, without long-term current use of insulin ([facility]) - POCT Hemoglobin A1c - dulaglutide (TRULICITY) [...] mouth nightly. Stage 3b chronic kidney disease ([facility]) A1c 7.3% Increase Trulicity to 1.5 mg [...] VANESSA Taylor 03/22/23 1032 documented in this encounterMemorial HospitalReadyCart [id number] Instructions* Patient Instructions* VANESSA Taylor - 03/08/2023 4:30 PM EST Are You Ready To Kick The Habit? Free Tobacco Cessation Resources [facility] Services [facility] provide all employees with free tobacco cessation services that include: Counseling to understand nicotine addiction Education about medications that can help you successfully quit Assistance with developing a plan to quit Call to set up an individual appointment or find out when group classes will be held: [facility]: [phone] [facility]: [phone] [facility]: [phone] [facility]: [phone] Quit Smoking Action Plan and Resources [facility] offers an eight-week, online smoking cessation plan to all [facility] employees, regardless of whether [employer] is your medical insurance provider. Go to [email or web address]/[email or web address] and click the Health Risk Assessment and Resources link to get started. In the [employer] menu, click Action Plans instead of Health Risk Assessment to access the Quit Smoking Action Plan. Additional smoking cessation resources are also available to all [facility] employees on the [employer] web page at www.[employer]/quitsmoking. [place] Tobacco Cessation Program If [employer] is your medical insurance provider, there are more free resources available to you, including: No copays or deductibles on local tobacco cessation counseling services to help you quit Prescription assistance for tobacco cessation medications to help you quit For details about the tobacco cessation program available to [employer] members, go to www.[employer] (Search: Tobacco Cessation Program). [place] Tobacco Quit Line 5-026-KYLU-NOW ( ) is a toll-free, telephonic service that helps [place] residents quit smoking and using tobacco. It is staffed by experts who tailor a quit plan for you and provide you with advice. [place] Tobacco Quit Line 1-011-XSTB-NOW ( ) is a toll-free, telephonic service that helps [place] residents quit smoking and using tobacco. It is staffed by experts who tailor a quit plan for you and provide you with advice. Two weeks of nicotine replacement therapy may be provided at no charge, if needed. Additional Resources These national organizations also offer free information and resources to help you quit tobacco: [place] [employer]--www.cancer.org/healthy/stayawayfromtobacco [place] [employer]--www.heart.org (Search: Quit Smoking) Centers for Disease Control and Prevention--www.cdc.gov/tobacco [place] [employer]--www.lungusa.org * Attachments The following attachments cannot be sent through Care Everywhere. * Anxiety Discharge Instructions, Adult (Irish) documented in this encounterVermont State HospitalEasyCopay06-12-2023 History of Present illness Narrative* Elyse Arellano, [...] sets may be added. Education: [x] Equipment [place] [] Understanding BP [x] S/S to report [...] Quality of Life/PHQ9 Intervention: [] Psych Consult/social security benefits interviewer [] Physician Referral Medications: Prozac Education: [] [...] dizziness at <5 METs or during recovery IL or cardiac surgery complicated by cardiogenic shock, [...] resting or exercise induced complex dysrhythmias Uncomplicate IL, CABG, angioplasty, atherectomy, or stent Normal hemodynamic [...] weight over the next 30 days, utilizing linotype operator recommendations, moderating nutrional intake, and performing regular [...] patient. Continuesto vape. documented in this encounterBON DIGN[facility] - [facility]IL[facility]ERTAmic[facility] Phone: [phone]) 733-547205-15-2023 History of Present illness Narrative* Aaliyah Krishnamurthy [...] sets may be added. Education: [x] Equipment [place] [] Understanding BP [x] S/S to report [...] Quality of Life/PHQ9 Intervention: [] Psych Consult/social security benefits interviewer [] Physician Referral Medications: Education: [] Stress [...] dizziness at <5 METs or during recovery IL or cardiac surgery complicated by cardiogenic shock, [...] resting or exercise induced complex dysrhythmias Uncomplicate IL, CABG, angioplasty, atherectomy, or stent Normal hemodynamic [...] weight over the next 30 days utilizing linotype operator recommendations, including: Limit sodium to less than [...] in daily diet (whole wheat bread, buns, Irish muffins, brown rice, whole wheat pasta, etc.). [...] past 30 days. documented in this encounterBON [employer] Phone: [phone]) 880-201005-01-2023 History of Present illness Narrative* Emma Miramontes [...] in daily diet (whole wheat bread, buns, Irish muffins, brown rice, whole wheat pasta, etc.). [...] Recommendations are based on guidelines from the [place] [employer], [place] [employer] and current literature. Feel free to call with questions or concerns [phone] or [phone], LD RDN, ANKIT documented in this encounterBON [employer] Phone: [phone]) 140-226304-03-2023 History of Present illness Narrative* Uriel Grier [...] urology appointment with Dr. Victoria in in [place] on 06/21/2022 and will follow-up about his renal cysts there. Plan: No changes in medication Stable for discharge from nephrology standpoint Come back to see [facility] at our [place] office in 2 to 3 weeks. I did give the patient our office number to set that up. Nutrition Avoid nephrotoxic drugs/contrast exposure. . Uriel Grier MD Nephrology Attending Physician [facility] 06/06/2022 This note is created with [...] gm pro/day Weight Used for Protein Requirements: Pearce Fluid (ml/day): per MD Method Used for [...] outpatient diabetes education Linda Alvarado RD Contact: [phone] * KENNETH Napier NP - 06/06/2022 12:06 PM EDT Images from the original note were not included. [employer] Progress Note Date: 06/04/2022 Patient name: Elias Walker Date of admission: 05/23/2022 12:00 PM Date of : 1985 PCP: Jose Khanna APRN - SEAM FELLER Reason for Admission: NSTEMI (non-ST elevated myocardial [...] Summary: The study was performed by the Pumping Station Supervisor, Cardiac Fellow, and the Fight Manager in the Waste Recycler without complications. Consent was obtained from the [...] outpatient as patient leaning towards outpatient . [place] [employer] [phone] * ADDI Christensen - 06/05/2022 1:28 PM EDT Occupational Therapy Facility/Department: [place] [address]- [facility] Occupational Daily Treatment Note Name: [...] from the original note were not included. [place] [employer] Progress Note Date: 06/04/2022 Patient name: Elias Walker Date of admission: 05/23/2022 12:00 PM Date of : 1985 PCP: Jose Khanna APRN - SEAM FELLER Reason for Admission: NSTEMI (non-ST elevated myocardial [...] Summary: The study was performed by the Pumping Station Supervisor, Cardiac Fellow, and the Fight Manager in the Waste Recycler without complications. Consent was obtained from the [...] done prior to discharge or as outpatient [employer] [employer] [phone] Attending Physician Statement I have discussed the case of Elias Walker including pertinent history and exam findings with thestudent/resident/fellow. I have seen and examined the patient and the salguero elements of the encounterhave been performed by me. I agree with the assessment, plan and orders as documented by the resident With changes made to the note. . [place] [employer] [phone] * Eddie Machado, INDUSTRIAL COOK - TRAM INSPECTOR - 06/05/2022 11:25 AM EDT [facility] Cardiothoracic Surgery Progress Note 06/05/2022 11:25 [...] ambulate TID today Plan for home with [facility]-cardiology to have follow up for stent to RCA in 4-6weeks 06-04-22 Please leave stone one more day Started flomax Nephrology following to assist with renal function-patient making normal UO. Nephrology to manage diuretics We will eval for Ct removal tomorrow AM Please continue with PT OT DC planning home with [facility] Cardiology-this patient will need stent to RCA KENNETH WILLINGHAM NP * LADONNA POSADA - 06/05/2022 9:29 AM EDT Physical Therapy Facility/Department: [facility] CAR 1- SICU Daily Treatment Note [...] : Elias Walker; 36 y.o. Location: [facility]/1015- Attending: Ariel Purdy MD Admit [...] urology appointment with Dr. Victoria in in [place] on 06/21/2022 and will follow-up about his [...] 06/04/2022 3:25 PM EDT Occupational Therapy Facility/Department: [address] Occupational Daily Treatment Note Name: Elias [...] lip breathing with good return. AM-PAC Score AM-[facility] Inpatient Daily Activity Raw Score: 16 (06/04/221527) [facility] Inpatient ADL T-Scale Score : 35.96 [...] within reach. FERNANDA Christensen * Eddie Machado, INDUSTRIAL COOK - TRAM INSPECTOR - 06/04/2022 11:20 AM EDT [facility] Cardiothoracic Surgery Progress Note 06/04/2022 11:21 [...] with PT OT DC planning home with [facility] Cardiology-this patient will need stent to RCA KENNETH WILLINGHAM NP * LADONNA POSADA - 06/04/2022 10:39 AM EDT Physical Therapy Facility/Department: [facility] CAR 1- SICU Daily Treatment Note [...] urology appointment with Dr. Victoria in in [place] on 06/21/2022 and will follow-up about his renal cysts there. Plan: Continue current blood pressure medication Will repeat ionized calcium today We will start Sensipar if ionized calcium remains elevated We will follow with you Nutrition Please ensure that patient is on a renal diet/TF. Avoid nephrotoxic drugs/contrast exposure. . cB Flood MD , This note is created with the assistance of a speech-recognition program. While intending to generate a document that actually reflects the content of the visit, no guarantees can be provided that every mistake has been identified and corrected by editing. * Lorna Moyer MD - 06/04/2022 6:55 AM EDT Images from the original note were not included. [facility] [employer] Progress Note Date: 06/04/2022 Patient name: Elias Walker Date of admission: 05/23/2022 12:00 PM Date of : 1985 PCP: KENNETH Taylor CNP Reason for Admission: NSTEMI (non-ST elevated myocardial infarction) ([facility]) [I21.4] Subjective: Seen and examined by bedside [...] Summary: The study was performed by the Pumping Station Supervisor, Cardiac Fellow, and the Fight Manager in the Waste Recycler without complications. Consent was obtained from the [...] at this time, will follow and evaluate. [place] [employer] [phone] Attending Physician Statement I have discussed the case of Elias Walker including pertinent history and exam findings with thestudent/resident/fellow. I have seen and examined the patient and the salguero elements of the encounterhave been performed by me. I agree with the assessment, plan and orders as documented by the resident With changes made to the note. . [place] [employer] [phone] * Linda Garnica OT - 06/03/2022 4:20 PM EDT Occupational Therapy Facility/Department: [facility] CAR 1- SICU Occupational Therapy Initial [...] balance Assessment: Patient completed functional transfers at [facility] using RW for support with use of [...] Ambulation Assistance: Independent Transfer Assistance: Independent Active General Ledger Accountant: Yes Mode of Transportation: Lumoid Occupation: Unemployed Leisure & Hobbies: Eat, video [...] Outcome: Verbalized understanding;Continued education needed AM-PAC Score AM-[facility] Inpatient Daily Activity Raw Score: 20 (06/03/221620) [facility] Inpatient ADL T-Scale Score : 42.03 (06/03/221620) ADL Inpatient [facility] 0-100% Score: 38.32 (06/03/221620) ADL Inpatient [facility] G-Code Modifier : CJ (06/03/221620) Goals [...] Patient : Elias Walker; 36 y.o. Location: [address] [place] [address] Attending: Ariel Purdy MD Admit Date: 05/23/2022 [...] neurology appointment with Dr. Victoria in in [place] on 06/21/2022 and will follow-up about his [...] exposure. Talib Saldaña MD [facility] This note is created with the assistance [...] since stone removal. Bladder scan showed 25ml. Continuous Absorption Process Operator updated Randy Machado NP and was toldto place stone. * Lorna Moyer MD - 06/03/2022 3:00 PM EDT Images from the original note were not included. [place] [employer] Progress Note Date: 06/03/2022 Patient name: Elias Walker Date of admission: 05/23/2022 12:00 PM Date of : 1985 PCP: Jose Khanna APRN - JOSE Reason for Admission: NSTEMI (non-ST elevated myocardial infarction) ([facility]) [I21.4] Subjective: Seen and examined by bedside [...] Summary: The study was performed by the Pumping Station Supervisor, Cardiac Fellow, and the Fight Manager in the Waste Recycler without complications. Consent was obtained from the [...] need nephrology clearance prior to possible intervention [employer] [employer] [phone] Attending Physician Statement I have discussed the case of Elias Walker including pertinent history and exam findings with thestudent/resident/fellow. I have seen and examined the patient and the salguero elements of the encounterhave been performed by me. I agree with the assessment, plan and orders as documented by the resident With changes made to the note. . [place] [employer] [phone] * Юлия Peraza, PT - 06/03/2022 11:21 AM EDT Physical Therapy Facility/Department: [facility] 1- SICU Physical Therapy Initial Assessment Name: Elias Walker : 1985 Date of Service: 06/03/2022 Chief Complaint Patient presents with Chest Pain No longer has chest pain, presented to [facility] with chest pain Polydipsia S/p CABGx3 [...] Ambulation Assistance: Independent Transfer Assistance: Independent Active General Ledger Accountant: Yes Mode of Transportation: Lumoid Occupation: Unemployed Leisure & Hobbies: Eat, video [...] - JOSE - 06/03/2022 9:58 AM EDT [facility] Cardiothoracic Surgery Daily Progress Note Surgeon: Dr [...] 9:38 AM EDT SPIRITUAL CARE DEPARTMENT - [facility] PROGRESS NOTE Shift date: 06/03/22 Shift day: Monday Shift # 1 Room # 1015/1015-01 Name: Elias Walker Referral: nurse Admit Date & Time: 05/23/2022 12:00 PM Assessment: Elias Walker is a 36 y.o. male in the hospital recovering from surgery. Flying I Instructor responded to patient's room per Spiritual Consult for 'post-surgical support'. Flying I Instructor was welcomed into the room by patient and his girlfriend (Nicolle). The patient was sitting up in a chair, and his girlfriend was moving around the room. Flying I Instructor observed patient to be calm, his girlfriend to be anxious, and both to be coping well. Intervention: Continuous Absorption Process Operator introduced self and title as corporate law specialist Continuous Absorption Process Operator offered space for the patient and his girlfriend to express feelings, needs, and concerns and provided a ministry presence. Through conversation, corporate law specialist learned that patient's girlfriend may need assistance with Home Away From Home in the future; she will communicate need to nurse/s and corporate law specialist/s when/if need arises. Flying I Instructor provided a non-anxious presence, practiced active listening, and offered a blessing of peace. Outcome: Patient and his girlfriend seemed receptive to corporate law specialist presence and expressed gratitude for corporate law specialist visit. Plan: Chaplains will remain available to [...] Outcome Receptive;Expressed Gratitude . Spiritual Care Department [facility] [phone] * Patricio Adame RCP - 06/03/2022 1:29 [...] neurology appointment with Dr. Victoria in in [place] on 06/21/2022 and will follow-up about his [...] Preciado MD Internal Medicine Resident PGY 3 [facility] [place] 06/02/2022, 9:31 AM This note is created with the assistance of a speech-recognition program. While intending to generate a document that actually reflects the content of the visit, no guarantees can be provided that every mistake has been identified and corrected by editing. * Solange Mercer MD - 06/02/2022 8:29 AM EDT Images from the original note were not included. [facility] Office: [phone] Sony Raymond DO, Brodie Campos, DO, Skip [...] Jerry Davis DO, Justin Gaines MD, Mayra hCicas, SEAM FELLER, Riri Serna, SEAM FELLER, Desire Harley, SEAM FELLER, Ariel [place], SEAM FELLER, Jennifer Magaña, UMESH, Patricia Harrington, SEAM FELLER, Pauline Charles, SEAM FELLER, Kelli Sarah SEAM FELLER, Elizabeth Cummings SEAM FELLER, Karlie Kenney, SEAM FELLER, ALESSANDRA CarterC, Sherron Ngo, DAY LIGHT RELIEF OPERATOR, Nyasia Lea, SEAM FELLER, Ivonne Alicea, SEAM FELLER [facility] IN-PATIENT SERVICE [facility] Progress Note 06/02/2022 8:30 AM Name: Elias Walker Acct: [id number] Room: Day: 10 Admit Date: 05/23/2022 12:00 PM PCP: KENNETH Taylor CNP Code Status: Full Code Subjective: C/C: Chief Complaint Patient presents with Chest Pain No longer has chest pain, presented to [facility] with chest pain Polydipsia Interval History [...] 05:30 AM PBEA 4 09/06/2021 04:41 AM [id number] 98 05/31/2022 05:30 AM FIO2 3.0 05/31/2022 [...] 05/31/2022 Yes NSTEMI (non-ST elevated myocardial infarction) ([facility]) 05/28/2022 Yes Morbid obesity ([facility]) 05/24/2022 Yes Anxiety 05/23/2022 Yes Allergic rhinitis 05/23/2022 Yes HHNC (hyperglycemic hyperosmolar nonketotic coma) ([facility]) 05/23/2022 Yes Essential hypertension 05/31/2022 Yes Overview [...] urology appointment with Dr. Victoria in in [place] on 06/21/2022 and will follow-up about his renal cysts there. Solange Mercer MD 06/02/2022 8:30 AM * Martha Lyman RN - 06/01/2022 10:00 PM EDT Pt. Up in bathroom washing with CHG, shaving of chest, bilateral arms, bilateral lower extremities completed per sports book writer at bedside. * KENNETH Baltazar CNP - 06/01/2022 11:20 AM EDT Images from the original note were not included. [employer] [employer] Progress Note Date: 06/01/2022 Patient name: Elias Walker Date of admission: 05/23/2022 12:00 PM Date of : 1985 PCP: Jose Khanna APRN - SEAM FELLER Reason for Admission: NSTEMI (non-ST elevated myocardial infarction) ([facility]) [I21.4] Subjective: Clinical Changes /Abnormalities: Patient seen [...] Summary: The study was performed by the Pumping Station Supervisor, Cardiac Fellow, and the Fight Manager in the Waste Recycler without complications. Consent was obtained from the [...] Nifedipine. No TYRON/ARB d/t CKD Will follow [place] [employer] [facility]. [phone] * Solange Mercer MD - 06/01/2022 10:10 AM EDT Images from the original note were not included. [facility] Office: [phone] Sony Raymond DO, Brodie Campos DO, Skip [...] [place], JOSE, Jennifer Magaña, UMESH, Patricia Harrington, SEAM FELLER, Pauline Charles, SEAM FELLER, Kelli Sarah, SEAM FELLER, Elizabeth Cummings, SEAM FELLER, Karlie Kenney, JOSE, Ben Cesar PA-C, Sherron Ngo, DAY LIGHT RELIEF OPERATOR, Nyasia Lea, JOSE, Ivonne Alicea, JOSE [facility] IN-PATIENT SERVICE [facility] Progress Note 06/01/2022 12:59 PM Name: Elias Walker Acct: [id number] Room: Day: 9 Admit Date: 05/23/2022 12:00 PM PCP: KENNETH Taylor CNP Code Status: Full Code Subjective: C/C: Chief Complaint Patient presents with Chest Pain No longer has chest pain, presented to [facility] with chest pain Polydipsia Interval History [...] 05:30 AM PBEA 4 09/06/2021 04:41 AM [id number] 98 05/31/2022 05:30 AM FIO2 3.0 05/31/2022 [...] Yes Acute kidney injury superimposed on CKD ([facility]) 05/31/2022 Yes NSTEMI (non-ST elevated myocardial infarction) ([facility]) 05/28/2022 Yes Morbid obesity ([facility]) 05/24/2022 Yes Anxiety 05/23/2022 Yes Allergic rhinitis 05/23/2022 Yes HHNC (hyperglycemic hyperosmolar nonketotic coma) ([facility]) 05/23/2022 Yes Essential hypertension 05/31/2022 Yes Overview [...] - 99 mg/dL 103 (H) CALCIUM, SERUM, 931502 8.6 - 10.4 mg/dL 10.6 (H) (H): [...] neurology appointment with Dr. Victoria in in [place] on 06/21/2022 and will follow-up about his renal cysts there. Plan: Continue current blood pressure medications. Continue monitor strict I's and O's and renal function. Labs reviewed, okay for surgery cleared for CABG from nephrology standpoint Start patient on Sensipar. Nutrition Please ensure that patient is on a renal diet/TF. Avoid nephrotoxic drugs/contrast exposure. Sarwat Preciado MD Internal Medicine Resident PGY 3 [facility] [place] 06/01/2022, 9:39 AM Attending Physician Statement I [...] neurology appointment with Dr. Victoria in in [place] on 06/21/2022 and will follow-up about his [...] Preciado MD Internal Medicine Resident PGY 3 [facility] [place] 05/31/2022, 9:54 AM Attending Physician Statement I [...] from the original note were not included. [facility] Office: [phone] Sony Raymond DO, Brodie Campos DO, Skip Diggs DO, Rubén Swain DO, Lee Ann Saldaña MD, Love Cortez MD, Sultana Harley MD, Solange Mercer MD, Augusto Santizo MD, Lukas Angulo MD, Avelino Kent DO, Yanelis Grijalva MD, Fly Zaapta DO, Jeaneth Begum MD, John Ricks MD, Madison Raymond DO, Nasra Schulte MD, Alessio Bhat MD, Eddie Rader DO, Tiara Ladd MD, Emma Arnold MD, Meghann Cooper MD, Michele Hardin MD, Jerry Davis DO, Justin Gaines MD, Mayra Chicas, SEAM FELLER, Riri Serna, SEAM FELLER, Desire Harley, SEAM FELLER, Ariel [place], SEAM FELLER, Jennifer Magaña, UMESH, Patricia Harrington, SEAM FELLER, Pauline Charles, SEAM FELLER, Kelli Sarah, SEAM FELLER, Elizabeth Cummings, SEAM FELLER, Karlie Kenney, SEAM FELLER, Ben Cesar PACarriC, Sherron Ngo, DAY LIGHT RELIEF OPERATOR, Nyasia Lea, SEAM FELLER, Ivonne Alicea, SEAM FELLER [facility] IN-PATIENT SERVICE [facility] Progress Note 05/31/2022 4:17 PM Name: Elias Walker Acct: [id number] Room: Day: 8 Admit Date: 05/23/2022 12:00 PM PCP: KENNETH Taylor CNP Code Status: Full Code Subjective: C/C: Chief Complaint Patient presents with Chest Pain No longer has chest pain, presented to [facility] with chest pain Polydipsia Interval History [...] 05:30 AM PBEA 4 09/06/2021 04:41 AM [id number] 98 05/31/2022 05:30 AM FIO2 3.0 05/31/2022 [...] Yes Acute kidney injury superimposed on CKD ([facility]) 05/31/2022 Yes NSTEMI (non-ST elevated myocardial infarction) ([facility]) 05/28/2022 Yes Morbid obesity ([facility]) 05/24/2022 Yes Anxiety 05/23/2022 Yes Allergic rhinitis 05/23/2022 Yes HHNC (hyperglycemic hyperosmolar nonketotic coma) ([facility]) 05/23/2022 Yes Essential hypertension 05/31/2022 Yes Overview [...] neurology appointment with Dr. Victoria in in [place] on 06/21/2022 and will follow-up about his [...] exposure. Talib Saldaña MD [facility] This note is created with the assistance [...] insulins in past also. He trained at [facility] and has ability to read [...] follow up HCP appointments- stated Jose Khanna, INDUSTRIAL COOK 05/26/22 rs reinforced _x__ Medications - Insulin [...] [email or web address] _x__ Handout - Be safe with Kamas teaching sheet - / [email or web address] _x__ Handout - How to Use an Insulin Pen - handout with QR code - Linkage nielsen Current as of [id number] _x__ Emergency [...] with bedside RN RECOMMENDATIONS INPATIENT PLAN: _x__ Paper And Pulp Mill Operator Consult this admission for education on CHO [...] -up education at outpatient diabetes education at [facility]. An ordered is needed for this [...] from the original note were not included. [facility] Office: [phone] Sony Raymond DO, Brodie Campos DO, Skip [...] Desire Harley CNP, Ariel [place] CNP, Jennifer Magaañ, UMESH, Patricia Harrington CNP, Pauline Charles SEAM FELLER, Kelli Sarah SEAM FELLER, Elizabeth Cummings, SEAM FELLER, Karlie Kenney SEAM FELLER, Ben Cesar PA-C, Sherron Ngo, DAY LIGHT RELIEF OPERATOR, Nyasia Lea, SEAM FELLER, Ivonne Alicea, SEAM FELLER [facility] IN-PATIENT SERVICE [facility] Progress Note 05/30/2022 12:35 PM Name: Elias Walker Acct: [id number] Room: IP Day: 7 Admit Date: 05/23/2022 12:00 PM PCP: KENNETH Taylor CNP Code Status: Full Code Subjective: C/C: Chief Complaint Patient presents with Chest Pain No longer has chest pain, presented to [facility] with chest pain Polydipsia Interval History [...] 04:09 AM PBEA 4 09/06/2021 04:41 AM [id number] 98 09/06/2021 04:41 AM FIO2 40.0 09/06/2021 [...] Yes Acute kidney injury superimposed on CKD ([facility]) 05/28/2022 Yes NSTEMI (non-ST elevated myocardial infarction) ([facility]) 05/28/2022 Yes Morbid obesity ([facility]) 05/24/2022 Yes Anxiety 05/23/2022 Yes Allergic rhinitis 05/23/2022 Yes HHNC (hyperglycemic hyperosmolar nonketotic coma) ([facility]) 05/23/2022 Yes Primary hypertension 05/28/2022 Yes Overview [...] Anthropometric Measures: Height: 5' 4 (162.6 cm) Pearce Body Weight (IBW): 130 lbs (59 kg) [...] 2500 kcals/day Weight Used for Protein Requirements: Pearce Protein (g/day): 100-130 gm pro/day Method Used [...] diabetes education Juju Mishra RD, [place] Contact: [phone] * KENNETH Napier NP - 05/30/2022 11:31 AM EDT Images from the original note were not included. [place] [employer] Progress Note Date: 05/30/2022 Patient name: Elias Walker Date of admission: 05/23/2022 12:00 PM Date of : 1985 PCP: Jose Khanna, INDUSTRIAL COOK - SEAM FELLER Reason for Admission: NSTEMI (non-ST elevated myocardial [...] Summary: The study was performed by the Pumping Station Supervisor, Cardiac Fellow, and the Fight Manager in the Waste Recycler without complications. Consent was obtained from the [...] III (HCC) NSTEMI (non-ST elevated myocardial infarction) ([facility]) Hypertensive crisis Morbid obesity (HCC) Anxiety Allergic rhinitis HHNC (hyperglycemic hyperosmolar nonketotic coma) ([facility]) Plan of Treatment: Stable. Cath as above. Plans for CABG on Monday noted by CTS. Support provided. Continue ASA, statin ECHO as above. Preserved LVEF without significant valvular disease Continue Coreg and Nifedipine. No TYRON/ARB d/t CKD Will follow [place] [employer] [phone] * KENNETH Baltazar CNP - 05/29/2022 11:28 AM EDT Images from the original note were not included. [place] [employer] Progress Note Date: 05/29/2022 Patient name: Elias Walker Date of admission: 05/23/2022 12:00 PM Date of : 1985 PCP: KENNETH Taylor CNP Reason for Admission: NSTEMI (non-ST elevated myocardial infarction) ([facility]) [I21.4] Subjective: Clinical Changes /Abnormalities: Patient was [...] Summary: The study was performed by the Pumping Station Supervisor, Cardiac Fellow, and the Fight Manager in the Waste Recycler without complications. Consent was obtained from the [...] proteinuria CKD (chronic kidney disease), stage III ([facility]) NSTEMI (non-ST elevated myocardial infarction) ([facility]) Hypertensive crisis Morbid obesity (HCC) Anxiety Allergic rhinitis HHNC (hyperglycemic hyperosmolar nonketotic coma) ([facility]) Plan of Treatment: Stable. Cath as above. Plans for CABG on Monday noted by CTS. Support provided. Continue ASA, statin ECHO as above. Preserved LVEF without significant valvular disease BP with some improvement. Continue Coreg and will Nifedipine. No TYRON/ARB d/t CKD [place] [employer] [facility]. [phone] * Avelino Kent DO - 05/29/2022 11:15 AM EDT Images from the original note were not included. [facility] Office: [phone] Sony Raymond DO, Brodie Campos DO, Skip [...] Chicas CNP, Riri Serna CNP, Desire Harley SEAM FELLER, Ariel [place] SEAM FELLER, Jennifer Magaña, UMESH, Patricia Harrington, SEAM FELLER, Pauline Charles CNP, Kelli Sarah CNP, Elizabeth Cummings SEAM FELLER, Karlie Kenney SEAM FELLER, Ben Cesar PACarriC, Sherron Ngo, DAY LIGHT RELIEF OPERATOR, Nyasia Lea, SEAM FELLER, Ivonne Alicea, SEAM FELLER [facility] IN-PATIENT SERVICE [facility] Progress Note 05/29/2022 11:15 AM Name: Elias Walker Acct: [id number] Room: IP Day: 6 Admit Date: 05/23/2022 12:00 PM PCP: KENNETH Taylor CNP Code Status: Full Code Subjective: C/C: Chief Complaint Patient presents with Chest Pain No longer has chest pain[facility] [facility] with chest pain Polydipsia Interval History [...] 04:09 AM PBEA 4 09/06/2021 04:41 AM [id number] 98 09/06/2021 04:41 AM FIO2 40.0 09/06/2021 [...] Yes Acute kidney injury superimposed on CKD ([facility]) 05/28/2022 Yes NSTEMI (non-ST elevated myocardial infarction) ([facility]) 05/28/2022 Yes Morbid obesity ([facility]) 05/24/2022 Yes Anxiety 05/23/2022 Yes Allergic rhinitis 05/23/2022 Yes HHNC (hyperglycemic hyperosmolar nonketotic coma) ([facility]) 05/23/2022 Yes Primary hypertension 05/28/2022 Yes Overview [...] 9:09 PM EDT SPIRITUAL CARE DEPARTMENT - [facility] PROGRESS NOTE Shift date: 05/28/2022 Shift day: Monday Shift # 3 Room # Name: Elias Walker Holiness: Non-Hoahaoism Place of restorationism: Unknown Referral: Routine Visit Admit Date & Time: 05/23/2022 12:00 PM Assessment: Elias Walker is a 36 y.o. male in the hospital because of undergoing a Heart Catheterization. Per report, patient was found to need Open Heart Surgery. Patient was sitting up in hospital bed, when corporate law specialist visited. Patient's girlfriend, Nicolle, was also present in room at time of visit. Intervention: Flying I Instructor visited per Spiritual Care Consult for Advance Directives. Continuous Absorption Process Operator introduced self and title as corporate law specialist. Flying I Instructor learned from patient that he will be undergoing Open Heart Surgery on Monday. Flying I Instructor learned from patient that he would like his girlfriend, Nicolle, named as his primarydecision maker, as his mother lives in [place]. Flying I Instructor assisted patient in completing Advance Directive documents and made copies for patient's girlfriend, as well as copies for patient's paper chart. Flying I Instructor returned patient's completed documents to patient in room. Outcome: Patient thanked corporate law specialist for visit and care. Plan: Chaplains will [...] (comment) (as needed) . Spiritual Care Department [facility] [phone] * Avelino Kent DO - 05/28/2022 10:17 AM EDT Images from the original note were not included. [facility] Office: [phone] Sony Raymond DO, Brodie Campos DO, Skip Diggs DO, Rubén Swain DO, Lee Ann Saldaña MD, Love Cortez MD, Sultana Harley MD, Solange Mercer MD, Augusto Santizo MD, Lukas Angulo MD, Avelino Kent DO, Yanelis Grijalva MD, Fly Zapata DO, Jeaneth Begum MD, John Ricks MD, Madison Raymond DO, Narsa Schulte MD, Alessio Bhat MD, Eddie Rader DO, Tiara Ladd MD, Emma Arnold MD, Meghann Cooper MD, Michele Hardin MD, Jennifer Guo MD, Jerry Davis DO, Justin Gaines MD, Loco Wilks MD, Mayra Chicas, JOSE, Riri Serna CNP, Desire Harley CNP, Ariel Stewrat CNP, Jennifer Magaña DNP, Patricia Harrington, SEAM FELLER, Pauline Charles SEAM FELLER, Kelli Sarah SEAM FELLER, Elizabeth Cummings, SEAM FELLER, Karlie Kenney, SEAM FELLER, ALESSANDRA CarterC, Sherron Ngo, DAY LIGHT RELIEF OPERATOR, Nyasia Lea, SEAM FELLER, Ivonne Alicea, SEAM FELLER [facility] IN-PATIENT SERVICE [facility] Progress Note 05/28/2022 10:17 AM Name: Elias Walker Acct: [id number] Room: IP Day: 5 Admit Date: 05/23/2022 12:00 PM PCP: KENNETH Taylor CNP Code Status: Full Code Subjective: C/C: Chief Complaint Patient presents with Chest Pain No longer has chest pain, presented to [facility] with chest pain Polydipsia Interval History [...] 04:09 AM PBEA 4 09/06/2021 04:41 AM [id number] 98 09/06/2021 04:41 AM FIO2 40.0 09/06/2021 [...] * (Principal) NSTEMI (non-ST elevated myocardial infarction) ([facility]) 05/23/2022 Yes Hypertensive crisis 05/23/2022 Yes OZZIE (acute kidney injury) ([facility]) 05/24/2022 Yes Morbid obesity ([facility]) 05/24/2022 Yes Anxiety 05/23/2022 Yes Allergic rhinitis 05/23/2022 Yes HHNC (hyperglycemic hyperosmolar nonketotic coma) ([facility]) 05/23/2022 Yes Hypertension, essential 05/24/2022 Yes Overview Signed 09/28/2021 1:05 PM by Martin Serrano MD Blood pressures running in the 140-150 systolic range Coronary artery disease of [place] artery of [place] heart with stable angina pectoris ([facility]) 05/27/2022 Yes Plan: NSTEMI with multivessel coronary [...] a squeezing type pain. He went to [facility]. He has seen our group at [facility] as an outpatient.He was last seen [...] Intake/Output Summary (Last 24 hours) at 05/28/2022 0901 Last data filed at 05/27/20221999 Gross per [...] neurology appointment with Dr. Victoria in in [place] on 06/21/2022 and will follow-up about his [...] pertinent history and exam findings with the SEAM FELLER I have reviewed the salguero elements of all parts of the encounter with the SEAM FELLER. I have seen and examined the patient. I agree with the assessment and plan and status of the problem list as documented. Uriel Grier MD Nephrology Attending Physician [facility] 05/28/3022 * KENNETH Baltazar CNP - 05/28/2022 8:15 AM EDT Images from the original note were not included. [facility] [employer] Progress Note Date: 05/28/2022 Patient name: Elias [...] Summary: The study was performed by the Pumping Station Supervisor, Cardiac Fellow, and the Fight Manager in the Waste Recycler without complications. Consent was obtained from the [...] Nifedipine. No TYRON/ARB d/t CKD Will follow [facility] [employer] [facility]. [phone] * Avelino Kent DO - 05/27/2022 12:31 PM EDT Images from the original note were not included. [facility] Office: [phone] Sony Raymond DO, Brodie Campos DO, Skip [...] Stewart CNP, Jennifer Magaña, UMESH, Patricia Harrington, SEAM FELLER, Pauline Charles, SEAM FELLER, Kelli Sarah, SEAM FELLER, Elizabeth Cummings, SEAM FELLER, Karlie Kenney, SEAM FELLER, Ben Cesar, PA-C, Sherron Ngo, DAY LIGHT RELIEF OPERATOR, Nyasia Lea, SEAM FELLER, Ivonne Alicea, SEAM FELLER [facility] IN-PATIENT SERVICE [facility] Progress Note 05/27/2022 12:31 PM Name: Elias Walker Acct: [id number] Room: IP Day: 4 Admit Date: 05/23/2022 12:00 PM PCP: KENNETH Taylor CNP Code Status: Full Code Subjective: C/C: Chief Complaint Patient presents with Chest Pain No longer has chest pain, presented to [facility] with chest pain Polydipsia Interval History [...] 04:09 AM PBEA 4 09/06/2021 04:41 AM [id number] 98 09/06/2021 04:41 AM FIO2 40.0 09/06/2021 [...] * (Principal) NSTEMI (non-ST elevated myocardial infarction) ([facility]) 05/23/2022 Yes Hypertensive crisis 05/23/2022 Yes OZZIE (acute kidney injury) ([facility]) 05/24/2022 Yes Morbid obesity ([facility]) 05/24/2022 Yes Anxiety 05/23/2022 Yes Allergic rhinitis 05/23/2022 Yes HHNC (hyperglycemic hyperosmolar nonketotic coma) ([facility]) 05/23/2022 Yes Hypertension, essential 05/24/2022 Yes Overview Signed 09/28/2021 1:05 PM by Martin Serrano MD Blood pressures running in the 140-150 systolic range Coronary artery disease of [place] artery of [place] heart with stable angina pectoris ([facility]) 05/27/2022 Yes Plan: NSTEMI with multivessel coronary [...] insulins in past also. He trained at [facility] and has ability to read [...] follow up HCP appointments- stated Jose Khanna, INDUSTRIAL COOK 05/26/22 rs reinforced _x__ Medications - Insulin [...] / Plate method and grocery list from www.DiabetesLinkage Kristine.org _x__ Handout - How to Check Your Blood Sugar from www.DiabetesHealth Kristine.org _x__ Handout - Be safe with Kamas teaching sheet - / www.DiabetesDiagnovus.org _x__ Handout - How to Use an Insulin Pen - handout with QR code - [employer] Current as of [id number] _x__ Emergency Insert [...] with bedside RN RECOMMENDATIONS INPATIENT PLAN: _x__ Paper And Pulp Mill Operator Consult this admission for education on CHO [...] -up education at outpatient diabetes education at [facility]. An ordered is needed for this [...] 10:41 AM EDT SPIRITUAL CARE DEPARTMENT - [facility] PROGRESS NOTE Shift date: 05/27/2022 Shift day: Monday Shift # 1 Room # Name: Elias Walker Holiness: Non-islam Referral: Routine Visit Admit Date & Time: 05/23/2022 12:00 PM Assessment: Elias Walker is a 36 y.o. male in the hospital because of chest pain and polydipsia. Upon entering the room sports book writer observes the patient sitting up in a [...] as things sink in for them. Intervention: Continuous Absorption Process Operator introduced self and title as corporate law specialist Continuous Absorption Process Operator offered space for the patient to express feelings, needs, and concerns and provided a ministry presence. The corporate law specialist provided emotional support and offer continual support, if needed by the patient. Outcome: The patient expressed gratitude and welcomes future visits. Plan: Chaplains will remain available to offer spiritual and emotional support as needed. 05/27/22 1039 Encounter Summary Service Provided For: Patient Referral/Consult From: [facility] Significant other;Family members Last Encounter 05/27/22 Complexity of Encounter Low Begin Time 0943 End Time 1005 Total Time Calculated 22 min Assessment/Intervention/Outcome Assessment Anxious;Calm;Fearful;Hopeful;Tearful Intervention Active listening;Confronted/Challenged;Explored/Affirmed feelings, thoughts, concerns;Sustaining Presence/Ministry of presence Outcome Connection/Belonging;Engaged in conversation;Expressed feelings, needs, and concerns;Expressed Gratitude . [facility] Care Department [facility] [phone] * Martin Serrano MD - 05/27/2022 9:50 [...] a squeezing type pain. He went to [facility]. He has seen our group at [facility] as an outpatient.he was last seen [...] neurology appointment with Dr. Victoria in in [place] on 06/21/2022 and will follow-up about his [...] Preciado MD Internal Medicine Resident PGY 3 [facility] [place] 05/27/2022, 9:54 AM This note is created [...] seen me in the office before at [facility]. He also has known history of morbid obesity type 2 diabetes and hypertension. Previously has had history of hypercalcemia from primary hyperparathyroidism calciums have been well controlled most recently. No intervention was done. He presented to the hospital with symptoms of chest pain found to have non-ST elevation IL. 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 There was a slight bump in creatinine on presentation likely related to acute IL, peaked at 2.0. Renal function now at [...] from the original note were not included. [facility] Office: [phone] Sony Raymond DO, Brodie Campos DO, Skip [...] Stewart, JOSE, Jennifer Magaña, UMESH, Patricia Harrington, SEAM FELLER, Pauline Charles, SEAM FELLER, Kelli Sarah, SEAM FELLER, Elizabeth Cummings, SEAM FELLER, Karlie Kenney CNP, Ben Cesar PA-C, Sherron Ngo, ALEJANDRO, Nyasia Lea, SEAM FELLER, Ivonne Alicea, SEAM FELLER [facility] IN-PATIENT SERVICE [facility] Progress Note 05/26/2022 3:50 PM Name: Elias Walker Acct: [id number] Room: IP Day: 3 Admit Date: 05/23/2022 12:00 PM PCP: KENNETH Taylor CNP Code Status: Full Code Subjective: C/C: Chief Complaint Patient presents with Chest Pain No longer has chest pain, presented to [facility] with chest pain Polydipsia Interval History [...] 04:09 AM PBEA 4 09/06/2021 04:41 AM [id number] 98 09/06/2021 04:41 AM FIO2 40.0 09/06/2021 [...] * (Principal) NSTEMI (non-ST elevated myocardial infarction) ([facility]) 05/23/2022 Yes Hypertensive crisis 05/23/2022 Yes OZZIE (acute kidney injury) ([facility]) 05/24/2022 Yes Morbid obesity ([facility]) 05/24/2022 Yes Anxiety 05/23/2022 Yes Allergic rhinitis 05/23/2022 Yes HHNC (hyperglycemic hyperosmolar nonketotic coma) ([facility]) 05/23/2022 Yes Hypertension, essential 05/24/2022 Yes Overview [...] PM EDT Patient received post cath to [facility] room 15. Assessment obtained. Post cath [...] left and right groin hair clipped with sports book writer and BAUTISTA Xiao present. No family at [...] insulins in past also. He trained at [facility] and has ability to read [...] follow up HCP appointments- stated Jose Khanna, INDUSTRIAL COOK 05/26/22 rs reinforced _x__ Medications - Insulin [...] [email or web address] _x__ Handout - Be safe with Kamas teaching sheet - / www.DiabetesDiagnovus.org _x__ Handout - How to Use an Insulin Pen - handout with QR code - [employer] Current as of [id number] _x__ Emergency Insert sheet for your Vehicle - ADA Diabetes Emergencies _x__ Diabetes ID card - ADA Low and High Blood Sugar and treatments _x__ [facility] Diabetes Education brochure/ contact card Patient needs reinforcement. understanding of survival skills education, - discussed current insulin plans lantus at 30 units BID and pre meal correction on scale, patient did self adm insulin today with bedside RN RECOMMENDATIONS INPATIENT PLAN: _x__ Paper And Pulp Mill Operator Consult this admission for education on CHO [...] -up education at outpatient diabetes education at [facility]. An ordered is needed for this [...] a squeezing type pain. He went to [facility]. He has seen our group at [facility] as an outpatient.he was last seen [...] neurology appointment with Dr. Victoria in in [place] on 06/21/2022 and will follow-up about his [...] Echeverria MD, MPH, PGY-[address] [facility], [place], [place] Attending Physician Statement I have discussed the care of this patient, including pertinent history and exam findings, with the Resident/SEAM FELLER. I have reviewed and edited the salguero elements of all parts of the encounter with the Resident/SEAM FELLER. I agree with the assessment, plan and orders as documented by the Resident/SEAM FELLER. Talib Saldaña MD [facility] This note is created with the assistance of a speech-recognition program. While intending to generate a document that actually reflects the content of the visit, no guarantees can be provided that every mistake has been identified and corrected by editing. * Taryn Garcia RN - 05/26/2022 10:34 AM EDT Continuous Absorption Process Operator speaks with JOSE Chapman for cardiology. Patient is cleared for cardiac cath and will be going down between 1230/1300. Continuous Absorption Process Operator informs patient. * KENNETH Baltazar CNP - 05/26/2022 9:32 AM EDT Images from the original note were not included. [facility] [employer] Progress Note Date: 05/26/2022 Patient name: Elias Walker Date of admission: 05/23/2022 12:00 PM Date of : 1985 PCP: Jose J Khanna, INDUSTRIAL COOK - SEAM FELLER Reason for Admission: NSTEMI (non-ST elevated myocardial infarction) ([facility]) [I21.4] Subjective: Clinical Changes /Abnormalities: Patient was [...] Summary: The study was performed by the Pumping Station Supervisor, Cardiac Fellow, and the Fight Manager in the Waste Recycler without complications. Consent was obtained from the [...] III (HCC) NSTEMI (non-ST elevated myocardial infarction) ([facility]) Hypertensive crisis Morbid obesity (HCC) Anxiety Allergic [...] AM. Consider Hydralazine if remains elevated [facility] [employer] [facility]. [phone] * Taryn Garcia RN - 05/26/2022 8:00 AM EDT Continuous Absorption Process Operator pulls patient's insulin into syringe and has [...] from the original note were not included. [facility] Office: [phone] Sony Raymond DO, Brodie Campos DO, Skip [...] Gaines MD, Loco Wilks MD, Mayra Chicas, SEAM FELLER, Riri Serna, SEAM FELLER, Desire Harley, SEAM FELLER, Ariel Stewart, SEAM FELLER, Jennifer Magaña, DNP, Patricia Harrington, SEAM FELLER, Pauline Charles, SEAM FELLER, Kelli Sarah, SEAM FELLER, Elizabeth Cummings, SEAM FELLER, Karlie Kenney, SEAM FELLER, WILL Carter-C, Sherron Ngo, DAY LIGHT RELIEF OPERATOR, Nyasia Lea, SEAM FELLER, Ivonne Alicea, SEAM FELLER [facility] IN-PATIENT SERVICE [facility] Progress Note 05/25/2022 2:35 PM Name: Elias Walker Acct: [id number] Room: [facility] Day: 2 Admit Date: 05/23/2022 12:00 PM PCP: KENNETH Taylor CNP Code Status: Full Code Subjective: C/C: Chief Complaint Patient presents with Chest Pain No longer has chest pain, presented to [facility] with chest pain Polydipsia Interval History [...] 04:09 AM PBEA 4 09/06/2021 04:41 AM [id number] 98 09/06/2021 04:41 AM FIO2 40.0 09/06/2021 [...] * (Principal) NSTEMI (non-ST elevated myocardial infarction) ([facility]) 05/23/2022 Yes Hypertensive crisis 05/23/2022 Yes OZZIE (acute kidney injury) ([facility]) 05/24/2022 Yes Morbid obesity ([facility]) 05/24/2022 Yes Anxiety 05/23/2022 Yes Allergic rhinitis 05/23/2022 Yes HHNC (hyperglycemic hyperosmolar nonketotic coma) ([facility]) 05/23/2022 Yes Hypertension, essential 05/24/2022 Yes Overview [...] neurology appointment with Dr. Victoria in in [place] on 06/21/2022 and will follow-up about his renal cysts there. BMP in AM. Will follow. Please do not hesitate to call with questions. Talib Saldaña MD [facility] This note is created with the assistance of a speech-recognition program. While intending to generate a document that actually reflects the content of the visit, no guarantees can be provided that every mistake has been identified and corrected by editing. * Emilia Haines, KENNETH - SEAM FELLER - 05/25/2022 12:32 PM EDT Images from the original note were not included. [facility] [employer] Progress Note Date: 05/25/2022 Patient name: Elias Walker Date of admission: 05/23/2022 12:00 PM Date of : 1985 PCP: Jose Khanna, KENNETH - SEAM FELLER Reason for Admission: NSTEMI (non-ST elevated myocardial [...] Summary: The study was performed by the Pumping Station Supervisor, Cardiac Fellow, and the Fight Manager in the Waste Recycler without complications. Consent was obtained from the [...] to Streptococcus species without acute organ dysfunction ([facility]) Staphylococcus aureus pneumonia ([facility]) Delirium Cerebral septic emboli (HCC) OZZIE (acute kidney injury) ([facility]) Hypercalcemia Cerebral embolism Cerebrovascular accident (CVA) ([facility]) Septicemia (HCC) Dilated cardiomyopathy (HCC) Hypertension, essential Persistent proteinuria CKD (chronic kidney disease), stage III ([facility]) NSTEMI (non-ST elevated myocardial infarction) ([facility]) Hypertensive crisis Morbid obesity ([facility]) Anxiety Allergic rhinitis HHNC (hyperglycemic hyperosmolar nonketotic [...] toAKI. Rest of care per primary. [facility] [employer] [facility]. 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 Victoria- urology in [place], [place] on 06/21/2022. * Юлия Block - 05/25/2022 10:24 AM EDT Echo completed in the Echo Lab. Definity administered by RN (2mL of Diluted Bolus) * Taryn Garcia RN - 05/25/2022 7:16 AM EDT Continuous Absorption Process Operator notifies nephrology for cardiac clearance. Awaiting further [...] original note were not included. Occupational Therapy [facility] Occupational Therapy Not Seen Note DATE: [...] Echeverria MD, MPH, PGY-[address] [facility] [place], [place] Attending Physician Statement I have discussed the care of this patient, including pertinent history and exam findings, with the Resident/SEAM FELLER. I have reviewed and edited the salguero elements of all parts of the encounter with the Resident/SEAM FELLER. I agree with the assessment, plan and orders as documented by the Resident/SEAM FELLER. Talib Saldaña MD [facility] This note is created with the assistance of a speech-recognition program. While intending to generate a document that actually reflects the content of the visit, no guarantees can be provided that every mistake has been identified and corrected by editing. * Alessio Bhat MD - 05/24/2022 9:47 AM EDT Images from the original note were not included. [facility] Office: [phone] Sony Raymond DO, Brodie Campos DO, Skip [...] Chicas, JOSE, Riri Serna CNP, Desire Harley, SEAM FELLER, Ariel Stewart, SEAM FELLER, Jennifer Magaña, UMESH, Patricia Harrington, SEAM FELLER, Pauline Charles, SEAM FELLER, Kelli Sarah, SEAM FELLER, Elizabeth Cummings, SEAM FELLER, Karlie Kenney, SEAM FELLER, ALESSANDRA CarterC, Sherron Ngo, DAY LIGHT RELIEF OPERATOR, Nyasia Lea, SEAM FELLER, Ivonne Alicea, SEAM FELLER [facility] IN-PATIENT SERVICE [facility] Progress Note 05/24/2022 9:47 AM Name: Elias Walker Acct: [id number] Room: [facility]/0407-01 Day: 1 Admit Date: 05/23/2022 12:00 PM PCP: KENNETH Taylor CNP Code Status: Full Code Subjective: C/C: Chief Complaint Patient presents with Chest Pain No longer has chest pain, presented to [facility] with chest pain Polydipsia Interval History [...] 04:09 AM PBEA 4 09/06/2021 04:41 AM [id number] 98 09/06/2021 04:41 AM FIO2 40.0 09/06/2021 [...] * (Principal) NSTEMI (non-ST elevated myocardial infarction) ([facility]) 05/23/2022 Yes Hypertensive crisis 05/23/2022 Yes Acute kidney injury superimposed on CKD ([facility]) 05/23/2022 Yes Class 3 severe obesity due to excess calories with serious comorbidity and body mass index (BMI) of45.0 to 49.9 in adult ([facility]) 05/23/2022 Yes Anxiety 05/23/2022 Yes Allergic rhinitis 05/23/2022 Yes HHNC (hyperglycemic hyperosmolar nonketotic coma) ([facility]) 05/23/2022 Yes Primary hypertension 05/23/2022 Yes Overview [...] insulins in past also. He trained at [facility] and has ability to read [...] [email or web address] _x__ Handout - Be safe with Kamas teaching sheet - / www.DiabetesDiagnovus.org _x__ Handout - How to Use an Insulin Pen - handout with QR code - Health nielsen Current as of [id number] _x__ Emergency Insert sheet for your Vehicle - ADA Diabetes Emergencies _x__ Diabetes ID card - ADA Low and High Blood Sugar and treatments _x__ [facility] Diabetes Education brochure/ contact card Patient needs reinforcement. 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 An ordered is needed for this [...] RN - 05/23/2022 8:45 PM EDT Notified knowledge management consultant TRAM INSPECTOR of patients blood sugar check per order documented [facility] Work Phone: 1(260) 892-709804-03-2023 Hospital course Narrative* KENNETH Ohara CNP - 06/06/2022 9:58 AM EDT Cardiothoracic Surgery IN-PATIENT SERVICE [facility] Discharge Summary Patient ID: Elias Walker : 1985 ACCOUNT: [id number] Patient's PCP: KENNETH Taylor CNP Admit Date: [...] Allergic rhinitis HHNC (hyperglycemic hyperosmolar nonketotic coma) ([facility]) Essential hypertension History of primary hyperparathyroidism IAN [...] Troponin trending upward. He was transferred to [facility] for further workup and possible intervention. Cardiac [...] IP CONSULT TO CARDIOLOGY IP CONSULT TO RAILROAD BRAKE REPAIRER IP CONSULT TO RAILROAD BRAKE REPAIRER IP CONSULT TO NEPHROLOGY IP CONSULT TO RAILROAD BRAKE REPAIRER IP CONSULT TO CARDIOTHORACIC SURGERY IP CONSULT TO RAILROAD BRAKE REPAIRER IP CONSULT TO SPIRITUAL SERVICES IP CONSULT TO IV TEAM IP CONSULT TO CASE MANAGEMENT IP CONSULT TO SPIRITUAL SERVICES IP CONSULT TO CARDIOLOGY IP CONSULT TO CARDIAC REHAB IP CONSULT TO RAILROAD BRAKE REPAIRER IP CONSULT TO CARDIOLOGY The patient was seen and examined on day of discharge and this discharge summary is in conjunction with any daily progress note from day of discharge. Discharge plan: Disposition: Home Physician Follow Up: [facility] [address] [facility] [facility] [address] [facility] [id number] Call Follow up education on diabetes self management, As needed Ariel Purdy MD [address] [facility] [address] [facility] [address] Call in 2 week(s) Requiring Further Evaluation/Follow [...] Your Medications These medications were sent to [facility] [place], [place] - [address] [facility] - P [phone] - F [phone] [facility] [place] [place] [address] amiodarone 200 MG tablet aspirin 81 MG [...] 06/06/2022 9:58 AM documented in this encounterB[facility] Phone: [phone]) 817-223704-03-2023 Hospital Discharge instructions* Discharge Instructions* KENNETH Ohara [...] If constipation persists, you may use any vimo-tjx-halpisf laxative, suppository or enema. DRIVING AND RIDING [...] ? Sutures may be removed by any health-care management associate after 7 days from THERESA/chest tube removal. [...] you will be able to watch them. [email or web address] CALL YOUR SURGEON IF YOU HAVE: ? [...] after discharge from the hospital. Office Location: [address] [place] [address] # [address] [place] [address] ? You may call the office to [...] have a follow up appointment with your Pumping Station Supervisor 2-3 weeks from discharge, please call and [...] day to get your calls to the outcomes analyst Physician, but we are often in surgery and it takes us awhile to get back to you. * Attachments The following attachments cannot be sent through Care Everywhere. * Diabetes: Type 2 (Irish) * insulin glargine (Irish) * Diabetes: Insulin Pens: General Info (Irish) * Diabetes: Counting Carbohydrates: Video (Irish) * Diabetes: Carb Counting and Eating Well: General Info (Irish) documented [facility] [employer] Phone: [phone]) 967-441407-26-2022 Hospital Discharge instructions* Discharge Instructions* Taryn Fam RN - 09/28/2021 2:40 PM EDT Verbally reviewed discharge instructions for care and follow up. Previous print out of these instructions were given with prior treatment.Patient verbalized understanding of these instructions. documented in [facility]CAR[facility] [employer] Phone: [phone]) 189-941607-22-2022 Hospital Discharge instructions* Discharge Instructions* Jocelyn Miranda RN - 09/24/2021 4:26 PM EDT Outpatient Discharge Instructions for IV Therapy [address] [place] [address] You are advised to carry out the [...] THE NEAREST EMERGENCY ROOM. documented in this [facility]CAR[facility] [employer] Phone: 1(154) 173-760707-21-2022 Hospital Discharge instructions* Discharge Instructions* Rody Fowler RN - 09/23/2021 4:19 PM EDT Verbally reviewed discharge instructions for care and follow up. Previous print out of these instructions were given with prior treatment.Patient verbalized understanding of these instructions. [facility] Phone: 1(490) 690-211507-20-2022 Hospital Discharge instructions* Discharge Instructions* Rody Fowler RN - 09/22/2021 4:07 PM EDT Verbally reviewed discharge instructions for care and follow up. Previous print out of these instructions were given with prior treatment.Patient verbalized understanding of these instructions. [facility] Phone: 1(778) 196-510707-19-2022 Hospital Discharge instructions* Discharge Instructions* Mayra Caceres RN - 09/21/2021 4:26 PM EDT Verbally reviewed discharge instructions for care and follow up. Previous print out of these instructions were given with prior treatment.Patient verbalized understanding of these instructions. [facility] Phone: 1(433) 118-346907-15-2022 Hospital Discharge instructions* Discharge Instructions* Taryn Fam RN - 09/17/2021 5:17 PM EDT Verbally reviewed discharge instructions for care and follow up. Previous print out of these instructions were given with prior treatment.Patient verbalized understanding of these instructions. [facility] in [facility] Phone: 1(143) 463-985107-13-2022 Hospital Discharge instructions* Instructions* Taryn Fam RN - 09/15/2021 Verbally reviewed discharge instructions for care and follow up. Previous print out of these instructions were given with prior treatment.Patient verbalized understanding of these instructions. [facility] Phone: [phone]) 557-955907-12-2022 Hospital Discharge instructions* Instructions* Taryn Fam RN - 09/14/2021 Outpatient Discharge Instructions for IV Therapy [address] [place] [address] You are advised to carry out the [...] THE NEAREST EMERGENCY ROOM. documented in [facility] Phone: 1(720) 642-217807-10-2022 History of Present illness Narrative* Jared Hernandez [...] phenomena Patient will be going to the [facility] during the week and may have to return to [facility] infusion center during the weekends, if ER at [facility] can not provide the treatment during the weekends Clinically the patient continues to make good recovery as his mentation continues to improve daily. Plans are in progress for potential discharge but insurance coverage remains the issue. Office f/up in [address] Henao for infection. Please call [phone] for appointment Infection Control Recommendations: Malone precautions Discharge Planning: Estimated Length of IV [...] IV antibiotics through the Infusion Center at [facility]. He may need an alternative site during the weekends, such as IV infusion center, if [facility] can not provide that service during the weekends. Office f/up in [address] Henao for infection. Please call [phone] for appointment The patient was seen by [...] were no complications encountered. Cardiovascular Diseases Fellow [facility] ONE XRAY VIEW OF THE CHEST 09/02/2021 [...] effusion and cardiomegaly. Cultures: Culture, Blood 1 [[id number]] Collected: 09/08/21 1000 Order Status: Completed Specimen: Blood Updated: 09/10/21 1041 Specimen Description .BLOOD Special Requests L HAND 10ML Culture NO GROWTH 2 DAYS Culture, Blood 1 [[id number]] Collected: 09/08/21 1004 Order Status: Completed Specimen: Blood Updated: 09/10/21 1040 Specimen Description .BLOOD Special Requests R HAND 10ML Culture NO GROWTH 2 DAYS Culture, Blood 1 [[id number]] Collected: 08/31/21 1515 Order Status: Completed Specimen: Blood Updated: 09/05/21 1553 Specimen Description .BLOOD Culture NO GROWTH 5 DAYS Culture, Blood 1 [[id number]] Collected: 08/31/21 1519 Order Status: Completed Specimen: Blood Updated: 09/05/21 1531 Specimen Description .BLOOD Culture NO GROWTH 5 DAYS Culture, Body Fluid [[id number]] (Abnormal) Collected: 08/29/21 0342 Order Status: Completed Specimen: Body Fluid Updated: 09/04/21 1436 Specimen Description .FLUID .PERICARDIAL FLUID Direct Exam RARE NEUTROPHILS Abnormal NO BACTERIA SEEN Gram stain made from cytocentrifuged specimen. Organisms and cells will be concentrated. Culture NO GROWTH 6 DAYS Culture, Blood 1 [[id number]] Collected: 08/30/21 0953 Order Status: Completed Specimen: Blood Updated: 09/04/21 1024 Specimen Description .BLOOD Special Requests 10ML R ARM Culture NO GROWTH 5 DAYS Culture, Blood 1 [[id number]] (Abnormal) Collected: 08/30/21 1001 Order Status: Completed [...] [place] at 0425 on 08/31/21 Culture, Respiratory [[id number]] (Abnormal) Collected: 08/30/21 2341 Order Status: Completed [...] Resulted: 09/02/21 08:28 MRSA DNA Probe, Nasal [[id number]] (Abnormal) Collected: 08/29/21 0813 Order Status: Completed [...] (Restricted: peds pts or suitable admitted adults) [[id number]] (Abnormal) Collected: 08/30/21 111 Order Status: Completed Specimen: Nasopharyngeal Swab Updated: [...] antibiotics. This was new information to this sports book writer. Reviewed DC wishes with patient. Juan statedhe [...] coverage remains the issue. Infection Control Recommendations: Malone precautions Discharge Planning: Estimated Length of IV [...] were no complications encountered. Cardiovascular Diseases Fellow [facility] ONE XRAY VIEW OF THE CHEST 09/02/2021 [...] effusion and cardiomegaly. Cultures: Culture, Blood 1 [[id number]] Collected: 09/08/21 1000 Order Status: Completed Specimen: Blood Updated: 09/10/21 1041 Specimen Description .BLOOD Special Requests L HAND 10ML Culture NO GROWTH 2 DAYS Culture, Blood 1 [[id number]] Collected: 09/08/21 1004 Order Status: Completed Specimen: Blood Updated: 09/10/21 1040 Specimen Description .BLOOD Special Requests R HAND 10ML Culture NO GROWTH 2 DAYS Culture, Blood 1 [[id number]] Collected: 08/31/21 1515 Order Status: Completed Specimen: Blood Updated: 09/05/21 1553 Specimen Description .BLOOD Culture NO GROWTH 5 DAYS Culture, Blood 1 [[id number]] Collected: 08/31/21 1519 Order Status: Completed Specimen: Blood Updated: 09/05/21 1531 Specimen Description .BLOOD Culture NO GROWTH 5 DAYS Culture, Body Fluid [[id number]] (Abnormal) Collected: 08/29/21 0342 Order Status: Completed Specimen: Body Fluid Updated: 09/04/21 1436 Specimen Description .FLUID .PERICARDIAL FLUID Direct Exam RARE NEUTROPHILS Abnormal NO BACTERIA SEEN Gram stain made from cytocentrifuged specimen. Organisms and cells will be concentrated. Culture NO GROWTH 6 DAYS Culture, Blood 1 [[id number]] Collected: 08/30/21 0953 Order Status: Completed Specimen: Blood Updated: 09/04/21 1024 Specimen Description .BLOOD Special Requests 10ML R ARM Culture NO GROWTH 5 DAYS Culture, Blood 1 [[id number]] (Abnormal) Collected: 08/30/21 1001 Order Status: Completed [...] [place] at 0425 on 08/31/21 Culture, Respiratory [[id number]] (Abnormal) Collected: 08/30/21 2341 Order Status: Completed [...] Resulted: 09/02/21 08:28 MRSA DNA Probe, Nasal [[id number]] (Abnormal) Collected: 08/29/21 0813 Order Status: Completed [...] (Restricted: peds pts or suitable admitted adults) [[id number]] (Abnormal) Collected: 08/30/21 1115 Order Status: Completed [...] day [facility] Jared Hernandez MD [facility] Program OFFICE: Thank you for allowing us to [...] Outpatient evaluation by endocrinology * Alejandra Seo, DRIVER RETRAINING INSTRUCTOR - 09/11/2021 11:28 AM EDT Physical Therapy Facility/Department: [address] Physical Therapy Progress Note Name: Elias [...] Ambulation Assistance: Independent Transfer Assistance: Independent Active General Ledger Accountant: Yes Mode of Transportation: SUV 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 [facility] Office: [phone] Sony Raymond DO, Brodie Campos DO, Skip Diggs DO, Rubén Swain DO, Lee Ann Saldaña MD, Love Coretz MD, Sultana Harley MD, Solange Mercer MD, Jennifer Guo MD, Augusto Santizo MD, Lukas Angulo MD, Avelino Kent DO, Yanelis Grijalva MD, Fly Zapata DO, Jeaneth Begum MD, John Ricks MD, Madison Raymond DO, Nasra Schulte MD, Alessio Bhat MD, Jerry Davis DO,Justin Gaines MD, Yan Feliciano MD, Mayra Chicas, SEAM FELLER, Karlie Kenney, SEAM FELLER, Omkar Colunga,SEAM FELLER, Riri Serna, SEAM FELLER, Desire Harley, SEAM FELLER, Ariel Stewart, SEAM FELLER, Ben Cesar, PA-C, Jennifer Magaña, DNP, Patricia Harrington, SEAM FELLER, Pauline Charles, SEAM FELLER, Kelli Sarah, SEAM FELLER, Sherron Ngo, DAY LIGHT RELIEF OPERATOR, Kellen Mabry, DNP, Nyasia Lea, SEAM FELLER, Elizabeth Cummings, SEAM FELLER, Kellie Mora, SEAM FELLER [facility] IN-PATIENT SERVICE [facility] Progress Note 09/11/2021 9:09 AM Name: Elias Walker Acct: [id number] Room: [facility] Day: 13 Admit Date: 08/29/2021 1:02 AM PCP: No primary care provider on file. Code Status: Full Code Subjective: C/C: Chief Complaint Patient presents with Shortness of Breath [facility], cardiac tamponade Chest Pain Interval History Status: [...] No results for input(s): PROT, LABALBU, LABA1C, B3YVLBH, S9PFRGF, FT4, TSH, AST, ALT, LDH, GGT, ALKPHOS, LABGGT, BILITOT, BILIDIR, AMMONIA, AMYLASE, LIPASE, LACTATE, CHOL, HDL, LDLCHOLESTEROL, CHOLHDLRATIO, TRIG, VLDL, UVW45BD, PHENYTOIN, PHENYF, URICACID, POCGLU in the last 72 hours. ABG: Lab Results Component Value Date/Time POCPH 7.392 09/06/2021 04:41 AM POCPCO2 48.2 09/06/2021 04:41 AM POCPO2 98.0 09/06/2021 04:41 AM POCHCO3 29.3 09/06/2021 04:41 AM NBEA 2 09/03/2021 04:09 AM PBEA 4 09/06/2021 04:41 AM [id number] 98 09/06/2021 04:41 AM FIO2 40.0 09/06/2021 [...] Cerebral embolism 09/08/2021 Yes Cerebrovascular accident (CVA) ([facility]) 09/10/2021 Yes Plan: # Embolic multiinfarct CVA: [...] coverage remains the issue. Infection Control Recommendations: Malone precautions Discharge Planning: Estimated Length of IV [...] were no complications encountered. Cardiovascular Diseases Fellow [facility] ONE XRAY VIEW OF THE CHEST 09/02/2021 [...] effusion and cardiomegaly. Cultures: Culture, Blood 1 [[id number]] Collected: 09/08/21 1000 Order Status: Completed Specimen: Blood Updated: 09/10/21 1041 Specimen Description .BLOOD Special Requests L HAND 10ML Culture NO GROWTH 2 DAYS Culture, Blood 1 [[id number]] Collected: 09/08/21 1004 Order Status: Completed Specimen: Blood Updated: 09/10/21 1040 Specimen Description .BLOOD Special Requests R HAND 10ML Culture NO GROWTH 2 DAYS Culture, Blood 1 [[id number]] Collected: 08/31/21 1515 Order Status: Completed Specimen: Blood Updated: 09/05/21 1553 Specimen Description .BLOOD Culture NO GROWTH 5 DAYS Culture, Blood 1 [[id number]] Collected: 08/31/21 1519 Order Status: Completed Specimen: Blood Updated: 09/05/21 1531 Specimen Description .BLOOD Culture NO GROWTH 5 DAYS Culture, Body Fluid [[id number]] (Abnormal) Collected: 08/29/21 0342 Order Status: Completed Specimen: Body Fluid Updated: 09/04/21 1436 Specimen Description .FLUID .PERICARDIAL FLUID Direct Exam RARE NEUTROPHILS Abnormal NO BACTERIA SEEN Gram stain made from cytocentrifuged specimen. Organisms and cells will be concentrated. Culture NO GROWTH 6 DAYS Culture, Blood 1 [[id number]] Collected: 08/30/21 0953 Order Status: Completed Specimen: Blood Updated: 09/04/21 1024 Specimen Description .BLOOD Special Requests 10ML R ARM Culture NO GROWTH 5 DAYS Culture, Blood 1 [[id number]] (Abnormal) Collected: 08/30/21 1001 Order Status: Completed [...] [place] at 0425 on 08/31/21 Culture, Respiratory [[id number]] (Abnormal) Collected: 08/30/21 2341 Order Status: Completed [...] Resulted: 09/02/21 08:28 MRSA DNA Probe, Nasal [[id number]] (Abnormal) Collected: 08/29/21 0813 Order Status: Completed [...] (Restricted: peds pts or suitable admitted adults) [[id number]] (Abnormal) Collected: 08/30/21 1115 Order Status: Completed [...] [facility] Ashish Henao MD [employer] messaging OFFICE: Thank you for allowing us [...] extrapolated by contextual diversion. 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 [...] Hand Dominance Hand Dominance: Right AM-PAC Score AM-[facility] Inpatient Daily Activity Raw Score: 19 (09/10/21 1353) AM-[facility] Inpatient ADL T-Scale Score : 40.22 [...] loss Fluid Accumulation: No significant fluid accumulation Under Ground Miner Strength: Not Performed Nutrition Assessment: Pt reports [...] Anthropometric Measures: Height: 5' 4 (162.6 cm) Pearce Body Weight (IBW): 130 lbs (59 kg) [...] Used for Energy Requirements: Current Energy (kcal/day): 6920-7254 kcals/day Weight Used for Protein Requirements: Pearce Protein (g/day): 120 g/day Method Used for [...] Planning: No discharge needs at this time [address] Contact: [phone] * Ben Cesar PA-C - 09/10/2021 11:49 AM EDT Images from the original note were not included. [facility] Office: [phone] Sony Raymond DO, Brodie Campos DO, Skip [...] Gaines MD, Yan Feliciano MD, Mayra Chicas, SEAM FELLER, Karlie Kenney SEAM FELLER, Omkar Colunga,SEAM FELLER, Riri Serna, SEAM FELLER, Desire Harley, SEAM FELLER, Ariel Stewart, SEAM FELLER, Ben Cesar, PA-C, Jennifer Magaña, DNP, Patricia Harrington, SEAM FELLER, Pauline Charles, SEAM FELLER, Kelli Sarah, SEAM FELLER, Sherron Ngo, [facility], Kellen Mabry, DNP, Nyasia Lea, SEAM FELLER, Elizabeth Cummings, SEAM FELLER, Kellie Mora, SEAM FELLER [facility] IN-PATIENT SERVICE [facility] Progress Note 09/10/2021 11:49 AM Name: Elias Walker Acct: [id number] Room: [address] [place] [address] Day: 12 Admit Date: 08/29/2021 1:02 AM PCP: No primary care provider on file. Code Status: Full Code Subjective: C/C: Chief Complaint Patient presents with Shortness of Breath [facility], cardiac tamponade Chest Pain Interval History Status: [...] 04:09 AM PBEA 4 09/06/2021 04:41 AM [id number] 98 09/06/2021 04:41 AM FIO2 40.0 09/06/2021 [...] Quiñones MD - 09/10/2021 9:56 AM EDT [facility] Neurology IN-PATIENT SERVICE NEUROLOGY PROGRESS NOTE [...] presents with Shortness [facility] Bre[facility]) and Chest Pain [...] on this case tomorrow Artur Quiñones MD [facility] Neurology * Talib Saldaña MD - 09/10/2021 [...] pertinent history and exam findings, with the Resident/SEAM FELLER. I have reviewed and edited the salguero elements of all parts of the encounter with the Resident/SEAM FELLER. I agree with the assessment, plan and orders as documented by the Resident/SEAM FELLER. Talib Saldaña MD [facility] This note is created with the assistance [...] with pericardial effusion and was transferred to [facility]. Has had difficulties with hypertension. Has OZZIE. [...] to ensure the accuracy of this automated tire fabric impregnating range tender, some errors in tire fabric impregnating range tender may have occurred. * Lizzie Xiong PTA - 09/09/2021 3:23 PM EDT Physical Therapy Facility/Department: [address] [place] Physical Therapy Daily treatment note [...] : Elias Walker; 36 y.o. Location: [facility]8/0418-02 Attending: Solange Mercer MD Admit Date: [...] pertinent history and exam findings, with the Resident/SEAM FELLER. I have reviewed and edited the salguero elements of all parts of the encounter with the Resident/SEAM FELLER. I agree with the assessment, plan and orders as documented by the Resident/SEAM FELLER. Talib Saldaña MD [facility] This note is created with the assistance of a speech-recognition program. While intending to generate a document that actually reflects the content of the visit, no guarantees can be provided that every mistake has been identified and corrected by editing. * Ben Cesar PA-C - 09/09/2021 9:30 AM EDT Images from the original note were not included. [facility] Office: [phone] Sony Raymond DO, Brodie Campos DO, Skip [...] Kenney CNP, Omkar Colunga CNP, Riri Serna, SEAM FELLER, Desire Harley, SEAM FELLER, Ariel Stewart, JOSE, Ben Cesar PA-C, Jennifer Magaña, DNP, Patricia Harrington, SEAM FELLER, Pauline Charles, SEAM FELLER, Kelli Sarah, SEAM FELLER, Sherron Ngo, DAY LIGHT RELIEF OPERATOR, Kellen Mabry, DNP, Nyasia Lea, SEAM FELLER, Elizabeth Cummings, SEAM FELLER, Kellie Mora, SEAM FELLER [facility] IN-PATIENT SERVICE [facility] Progress Note 09/09/2021 9:30 AM Name: Elias Walker Acct: [id number] Room: [facility] Day: 11 Admit Date: 08/29/2021 1:02 AM PCP: No primary care provider on file. Code Status: Full Code Subjective: C/C: Chief Complaint Patient presents with Shortness of Breath [facility], cardiac tamponade Chest Pain Interval History Status: [...] 04:09 AM PBEA 4 09/06/2021 04:41 AM [id number] 98 09/06/2021 04:41 AM FIO2 40.0 09/06/2021 [...] is verbalizing/communicating much better Infection Control Recommendations: Malone precautions Discharge Planning: Estimated Length of IV [...] were no complications encountered. Cardiovascular Diseases Fellow [facility] ONE XRAY VIEW OF THE CHEST 09/02/2021 [...] effusion and cardiomegaly. Cultures: Culture, Blood 1 [[id number]] Collected: 08/31/21 1515 Order Status: Completed Specimen: Blood Updated: 09/05/21 1553 Specimen Description .BLOOD Culture NO GROWTH 5 DAYS Culture, Blood 1 [[id number]] Collected: 08/31/21 1519 Order Status: Completed Specimen: Blood Updated: 09/05/21 1531 Specimen Description .BLOOD Culture NO GROWTH 5 DAYS Culture, Body Fluid [[id number]] (Abnormal) Collected: 08/29/21 0342 Order Status: Completed Specimen: Body Fluid Updated: 09/04/21 1436 Specimen Description .FLUID .PERICARDIAL FLUID Direct Exam RARE NEUTROPHILS Abnormal NO BACTERIA SEEN Gram stain made from cytocentrifuged specimen. Organisms and cells will be concentrated. Culture NO GROWTH 6 DAYS Culture, Blood 1 [[id number]] Collected: 08/30/21 0953 Order Status: Completed Specimen: Blood Updated: 09/04/21 1024 Specimen Description .BLOOD Special Requests 10ML R ARM Culture NO GROWTH 5 DAYS Culture, Blood 1 [[id number]] (Abnormal) Collected: 08/30/21 1001 Order Status: Completed [...] [place] at 0425 on 08/31/21 Culture, Respiratory [[id number]] (Abnormal) Collected: 08/30/21 2341 Order Status: Completed [...] Resulted: 09/02/21 08:28 MRSA DNA Probe, Nasal [[id number]] (Abnormal) Collected: 08/29/21 0813 Order Status: Completed [...] (Restricted: peds pts or suitable admitted adults) [[id number]] (Abnormal) Collected: 08/30/21 1115 Order Status: Completed [...] day [facility] Ashish Henao MD [employer] messaging OFFICE: Thank you for allowing us [...] girlfriend called up for report on patient. Continuous Absorption Process Operator busy in another room. Patient's girlfriend told embossing unit operator that she wants to bring pizza rolls up to the unit to be heated for patient because he does not like hospital food. check out clerk advised patient's girlfriend to call back in the morning for this question, the request will be forwarded. * Talib Saldaña MD - 09/08/2021 3:18 PM EDT Renal Progress Note Patient : Elias Walker; 36 y.o. Location: 0418/0418-02 Attending: Solange Mercer MD Admit Date: 08/29/2021 Hospital Day: 10 Subjective: Patient is initially transferred from [facility] due to complaints of chest pain, had syncopal episode there found to be hypertensive, found to have pericardial effusion transferred to [facility] underwent pericardiocentesis with 37 cc of [...] mg/dl today. Calcium was improved to 10.4. [id number], potassium 3.7, chloride 102, bicarb 23, BUN [...] exposure. Talib Saldaña MD [facility] This note is created with the assistance [...] is verbalizing/communicating much better Infection Control Recommendations: Malone precautions Discharge Planning: Estimated Length of IV [...] were no complications encountered. Cardiovascular Diseases Fellow [facility] ONE XRAY VIEW OF THE CHEST 09/02/2021 [...] effusion and cardiomegaly. Cultures: Culture, Blood 1 [[id number]] Collected: 08/31/21 1515 Order Status: Completed Specimen: Blood Updated: 09/05/21 1553 Specimen Description .BLOOD Culture NO GROWTH 5 DAYS Culture, Blood 1 [[id number]] Collected: 08/31/21 1519 Order Status: Completed Specimen: Blood Updated: 09/05/21 1531 Specimen Description .BLOOD Culture NO GROWTH 5 DAYS Culture, Body Fluid [[id number]] (Abnormal) Collected: 08/29/21 0342 Order Status: Completed Specimen: Body Fluid Updated: 09/04/21 1436 Specimen Description .FLUID .PERICARDIAL FLUID Direct Exam RARE NEUTROPHILS Abnormal NO BACTERIA SEEN Gram stain made from cytocentrifuged specimen. Organisms and cells will be concentrated. Culture NO GROWTH 6 DAYS Culture, Blood 1 [[id number]] Collected: 08/30/21 0953 Order Status: Completed Specimen: Blood Updated: 09/04/21 1024 Specimen Description .BLOOD Special Requests 10ML R ARM Culture NO GROWTH 5 DAYS Culture, Blood 1 [[id number]] (Abnormal) Collected: 08/30/21 1001 Order Status: Completed [...] [place] at 0425 on 08/31/21 Culture, Respiratory [[id number]] (Abnormal) Collected: 08/30/21 2341 Order Status: Completed [...] Resulted: 09/02/21 08:28 MRSA DNA Probe, Nasal [[id number]] (Abnormal) Collected: 08/29/21 0813 Order Status: Completed [...] (Restricted: peds pts or suitable admitted adults) [[id number]] (Abnormal) Collected: 08/30/21 1115 Order Status: Completed [...] times per day [facility] Ashish Henoa MD INTEX Program OFFICE: Thank you for allowing us to [...] from the original note were not included. [facility] Occupational Therapy Not Seen Note DATE: [...] to work-up the hypercalcemia Infection Control Recommendations: Malone precautions Discharge Planning: Estimated Length of IV [...] were no complications encountered. Cardiovascular Diseases Fellow [facility] ONE XRAY VIEW OF THE CHEST 09/02/2021 [...] effusion and cardiomegaly. Cultures: Culture, Blood 1 [[id number]] Collected: 08/31/21 1515 Order Status: Completed Specimen: Blood Updated: 09/05/21 1553 Specimen Description .BLOOD Culture NO GROWTH 5 DAYS Culture, Blood 1 [[id number]] Collected: 08/31/21 1519 Order Status: Completed Specimen: Blood Updated: 09/05/21 1531 Specimen Description .BLOOD Culture NO GROWTH 5 DAYS Culture, Body Fluid [[id number]] (Abnormal) Collected: 08/29/21 0342 Order Status: Completed Specimen: Body Fluid Updated: 09/04/21 1436 Specimen Description .FLUID .PERICARDIAL FLUID Direct Exam RARE NEUTROPHILS Abnormal NO BACTERIA SEEN Gram stain made from cytocentrifuged specimen. Organisms and cells will be concentrated. Culture NO GROWTH 6 DAYS Culture, Blood 1 [[id number]] Collected: 08/30/21 0953 Order Status: Completed Specimen: Blood Updated: 09/04/21 1024 Specimen Description .BLOOD Special Requests 10ML R ARM Culture NO GROWTH 5 DAYS Culture, Blood 1 [[id number]] (Abnormal) Collected: 08/30/21 1001 Order Status: Completed [...] [place] at 0425 on 08/31/21 Culture, Respiratory [[id number]] (Abnormal) Collected: 08/30/21 2341 Order Status: Completed [...] Resulted: 09/02/21 08:28 MRSA DNA Probe, Nasal [[id number]] (Abnormal) Collected: 08/29/21 0813 Order Status: Completed [...] (Restricted: peds pts or suitable admitted adults) [[id number]] (Abnormal) Collected: 08/30/21 1115 Order Status: Completed [...] day [facility] Ashish Henao MD INTEX Program OFFICE: Thank you for allowing us to [...] loss Fluid Accumulation: No significant fluid accumulation Under Ground Miner Strength: Not Performed Nutrition Assessment: Pt extubated [...] Anthropometric Measures: Height: 5' 4 (162.6 cm) Pearce Body Weight (IBW): 130 lbs (59 kg) [...] Used for Energy Requirements: Current Energy (kcal/day): 2055-7746 kcals/day Weight Used for Protein Requirements: Pearce Protein (g/day): 120 g/day Fluid (ml/day): Per [...] to determine Juju Mishra RD, LD Contact: [phone] * Sadie Quintanilla DO - 09/07/2021 2:36 PM EDT Critical care team - Resident sign-out to medicine service Date and time: 09/07/2021 2:36 PM Patient's name: Elias Walker Patient's account/billing number: [id number] Patient's Date of : 1985 Age: 36 [...] of asthma, ?HTN who was transferred from [facility] with chief complaints of chest pain. Patient had sharp chest pain radiating to the back and had a syncopal episode after chest pain. Patient went to [facility] for evaluation and was found to be hypertensive and discharged on metoprolol.Patient was found to be very hypertensive when he rechecked his blood pressure at home and patient went to [facility] for evaluation. On evaluation at [facility] patient was found to have pericardial effusion and was transferred to [facility] for further evaluation. At [facility] patient underwent pericardiocentesis draining 37 cc of [...] DO Emergency Medicine Resident Critical Care Service [facility] 09/07/2021, 2:36 PM EDT * Linda Garnica OT - 09/07/2021 2:20 PM EDT Images from the original note were not included. [facility] Occupational Therapy Not Seen Note DATE: 09/07/2021 NAME: Elias Walker : 1985 Patient not seen this date for Occupational Therapy due to: Other: Family member present in room, polite decline stating patient fatigued; Next Scheduled Treatment: Ck 09/08 * Falguni Sherman PT - 09/07/2021 1:30 PM EDT Physical Therapy Facility/Department: [place] [address] Physical Therapy Initial Assessment Name: Elias Walker : 1985 Date of Service: 09/07/2021 Discharge Recommendations: Further therapy recommended at discharge. Chief Complaint Patient presents with Shortness of Breath [facility], cardiac tamponade Chest Pain The patient is a 36 y.o. male who presents with Shortness of Breath ([facility], cardiac tamponade) and Chest Pain . 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 Talib Saldaña MD [facility] This note is created with the assistance of a speech-recognition program. While intending to generate a document that actually reflects the content of the visit, no guarantees can be provided that every mistake has been identified and corrected by editing. * Artur Quiñones MD - 09/07/2021 9:04 AM EDT [facility] Neurology IN-PATIENT SERVICE NEUROLOGY PROGRESS NOTE [...] male who presents with Shortness of Breath ([facility] tx, cardiac tamponade) and Chest Pain [...] physical therapy as tolerated Artur Quiñones MD [facility] Neurology * Sadie Quintanilla DO - 09/07/2021 7:05 AM EDT Critical Care Team - Daily Progress Note Date and time: 09/07/2021 7:06 AM Patient's name: Elias Walker Patient's account/billing number: [id number] Patient's Date of : 1985 Age: 36 [...] PMH of asthma who was transferred from [facility] with chief complaints of chest pain. Patient had sharp chest pain radiating to the back and had a syncopal episode after chest pain. Patient went to [facility] for evaluation and was found to be hypertensive and discharged on metoprolol.Patient was found to be very hypertensive today on rechecking blood pressure at home and patient went to [facility] for evaluation. On evaluation at [facility] patient was found to have pericardial effusion and was transferred to [facility] for further evaluation. At [facility] patient underwent pericardiocentesis draining 37 cc of [...] Humidification Source: HME Cuff Pressure (cm H2O): (book illustrator) Skin Barrier Applied: No Laboratory findings: Complete [...] PROPHYLAXIS: Stress ulcer: [] PPI Agent [x] [id number] [] Sucralfate [] Other: VTE: [] Enoxaparin [...] Sadie Quintanilla DO Department of Critical Care [facility] [place] 09/07/2021, 7:06 AM Associated attestation - [...] weeks of antibiotic coverage Infection Control Recommendations: Malone precautions Discharge Planning: Estimated Length of IV [...] were no complications encountered. Cardiovascular Diseases Fellow [facility] ONE XRAY VIEW OF THE CHEST 09/02/2021 [...] effusion and cardiomegaly. Cultures: Culture, Blood 1 [[id number]] Collected: 08/31/21 1515 Order Status: Completed Specimen: Blood Updated: 09/05/21 1553 Specimen Description .BLOOD Culture NO GROWTH 5 DAYS Culture, Blood 1 [[id number]] Collected: 08/31/21 1519 Order Status: Completed Specimen: Blood Updated: 09/05/21 1531 Specimen Description .BLOOD Culture NO GROWTH 5 DAYS Culture, Body Fluid [[id number]] (Abnormal) Collected: 08/29/21 0342 Order Status: Completed Specimen: Body Fluid Updated: 09/04/21 1436 Specimen Description .FLUID .PERICARDIAL FLUID Direct Exam RARE NEUTROPHILS Abnormal NO BACTERIA SEEN Gram stain made from cytocentrifuged specimen. Organisms and cells will be concentrated. Culture NO GROWTH 6 DAYS Culture, Blood 1 [[id number]] Collected: 08/30/21 0953 Order Status: Completed Specimen: Blood Updated: 09/04/21 1024 Specimen Description .BLOOD Special Requests 10ML R ARM Culture NO GROWTH 5 DAYS Culture, Blood 1 [[id number]] (Abnormal) Collected: 08/30/21 1001 Order Status: Completed [...] [place] at 0425 on 08/31/21 Culture, Respiratory [[id number]] (Abnormal) Collected: 08/30/21 2341 Order Status: Completed [...] Final trimethoprim-sulfamethoxazole Sensitive <=10 BACTERIAL SUSCEPTIBILITY PANEL JULÁIN Final vancomycin Sensitive 1 BACTERIAL SUSCEPTIBILITY PANEL JULIÁN Final Specimen Collected: 08/30/21 23:41 Last Resulted: 09/02/21 08:28 MRSA DNA Probe, Nasal [[id number]] (Abnormal) Collected: 08/29/21 0813 Order Status: Completed [...] (Restricted: peds pts or suitable admitted adults) [[id number]] (Abnormal) Collected: 08/30/21 1115 Order Status: Completed [...] day [facility] Ashish Henao MD [employer] messaging OFFICE: Thank you for allowing us [...] drugs/contrast exposure. Grace Melton CNP [facility] 09/06/2021 Attending Physician Statement I have discussed the care of Elias Walker, including pertinent history and exam findings, with the SEAM FELLER. I have reviewed the salguero elements of all parts of the encounter with the SEAM FELLER. I agree with the assessment, plan and orders as documented. Sharda Solitario MD MD, MRCP ([place]), FACP 09/06/2021 1:46 PM [facility] * Artur Quiñones MD - 09/06/2021 9:26 AM EDT [facility] Neurology IN-PATIENT SERVICE NEUROLOGY PROGRESS NOTE [...] male who presents with Shortness of Breath ([facility], cardiac tamponade) and Chest Pain . The [...] his infections have cleared. Artur Quiñones MD [facility] * Shun Cervantes MD - 09/06/2021 7:14 AM EDT Critical Care Team - Daily Progress Note Date and time: 09/06/2021 7:14 AM Patient's name: Elias Walker Patient's account/billing number: [id number] Patient's Date of : 1985 Age: 36 [...] Humidification Source: HME Cuff Pressure (cm H2O): (book illustrator) Skin Barrier Applied: No Laboratory findings: Complete [...] PROPHYLAXIS: Stress ulcer: [] PPI Agent [] [id number] [] Sucralfate [] Other: VTE: [] Enoxaparin [...] Braden Francois MD Department of Critical Care [facility] [place] 09/06/2021, 7:14 AM Attending Physician Statement I [...] this chart was generated using voice recognition SpeechCycleon dictation software. Although every effort was made to ensure the accuracy of this automated tire fabric impregnating range tender, some errors in tire fabric impregnating range tender may have occurred. Shun Cervantes MD 09/06/2021 10:53 AM * Lynda Jimenez [facility] - 09/05/2021 2:06 PM EDT Pharmacy Note [...] to 20 mg BID Lynda Jimenez PharmD, [facility] 09/05/2021 2:05 PM * Artur Quiñones MD - 09/05/2021 10:15 AM EDT [facility] Neurology IN-PATIENT SERVICE NEUROLOGY PROGRESS NOTE [...] male who presents with Shortness of Breath ([facility], cardiac tamponade) and Chest Pain . The patient was seen and examined and the chart was reviewed. This patient had a recent history of hypertension which appear to be uncontrolled. He also developed shortness of breath and chest pain. He had been evaluated at outside hospital and sent home with management for his hypertension but presented to [facility] for management of shortness of breath and [...] will continue to follow Artur Quiñones MD [facility] * Uriel Grier MD - 09/05/2021 9:55 AM EDT Renal Progress Note Patient : Elias Walker; 36 y.o. Location: [address] [place] [address] Attending: Brian Gracia MD Admit Date: 08/29/2021 [...] exposure. Uriel Grier MD [facility] 09/05/2021 * Shun Cervantes MD - 09/05/2021 7:12 AM EDT Critical Care Team - Daily Progress Note Date and time: 09/05/2021 7:13 AM Patient's name: Elias Walker Patient's account/billing number: [id number] Patient's Date of : 1985 Age: 36 [...] Humidification Source: HME Cuff Pressure (cm H2O): (book illustrator) Laboratory findings: Complete Blood Count: Recent Labs [...] PROPHYLAXIS: Stress ulcer: [] PPI Agent [] [id number] [] Sucralfate [] Other: VTE: [] Enoxaparin [...] PGY2 Family Medicine Department of Critical Care [facility] [place] 09/05/2021, 7:13 AM Attending Physician Statement I [...] this chart was generated using voice recognition SpeechCycleon dictation software. Although every effort was made to ensure the accuracy of this automated tire fabric impregnating range tender, some errors in tire fabric impregnating range tender may have occurred. Shun Cervantes MD 09/05/2021 [...] negative at 3 days Infection Control Recommendations: Malone precautions Discharge Planning: Estimated Length of IV [...] were no complications encountered. Cardiovascular Diseases Fellow [facility] ONE XRAY VIEW OF THE CHEST 09/02/2021 [...] effusion and cardiomegaly. Cultures: Culture, Body Fluid [[id number]] (Abnormal) Collected: 08/29/21 0342 Order Status: Completed Specimen: Body Fluid Updated: 09/04/21 1436 Specimen Description .FLUID .PERICARDIAL FLUID Direct Exam RARE NEUTROPHILS Abnormal NO BACTERIA SEEN Gram stain made from cytocentrifuged specimen. Organisms and cells will be concentrated. Culture NO GROWTH 6 DAYS Culture, Blood 1 [[id number]] Collected: 08/30/21 0953 Order Status: Completed Specimen: Blood Updated: 09/04/21 1024 Specimen Description .BLOOD Special Requests 10ML R ARM Culture NO GROWTH 5 DAYS Culture, Blood 1 [[id number]] Collected: 08/31/21 1515 Order Status: Completed Specimen: Blood Updated: 09/03/21 0613 Specimen Description .BLOOD Culture NO GROWTH 3 DAYS Culture, Blood 1 [[id number]] Collected: 08/31/21 1519 Order Status: Completed Specimen: Blood Updated: 09/03/21 0613 Specimen Description .BLOOD Culture NO GROWTH 3 DAYS Culture, Blood 1 [[id number]] (Abnormal) Collected: 08/30/21 1001 Order Status: Completed [...] [place] at 0425 on 08/31/21 Culture, Respiratory [[id number]] (Abnormal) Collected: 08/30/211 Order Status: Completed Specimen: [...] Resulted: 09/02/21 08:28 MRSA DNA Probe, Nasal [[id number]] (Abnormal) Collected: 08/29/21 0813 Order Status: Completed [...] (Restricted: peds pts or suitable admitted adults) [[id number]] (Abnormal) Collected: 08/30/21 1115 Order Status: Completed [...] day [facility] Ashish Henao MD [employer] messaging OFFICE: Thank you for allowing us [...] Patient : Elias Walker; 36 y.o. Location: [address] [place] [address] Attending: Brian Gracia MD Admit Date: 08/29/2021 [...] pertinent history and exam findings with the SEAM FELLER. I have reviewed the salguero elements of all parts of the encounter with the SEAM FELLER. I have seen and examined the patient. I agree with the assessment and plan and status of the problem list as documented. Uriel Grier MD Nephrology Attending Physician [facility] 09/04/2021 * Artur Quiñones MD - 09/04/2021 10:23 AM EDT [facility] Neurology IN-PATIENT SERVICE NEUROLOGY PROGRESS NOTE [...] male who presents with Shortness of Breath ([facility], cardiac tamponade) and Chest Pain . The [...] which was multifactorial. He was transferred from [facility] due to concern for pericardial effusion [...] agitated combative delirium and required significant sedation [id number] - 200 of fentanyl and propofol neurology [...] today Neurology will follow Artur Quiñones MD [facility] * Shun Cervantes MD - 09/04/2021 7:20 AM EDT Critical Care Team - Daily Progress Note Date and time: 09/04/2021 7:20 AM Patient's name: Elias Walker Patient's account/billing number: [id number] Patient's Date of : 1985 Age: 36 [...] Humidification Source: HME Cuff Pressure (cm H2O): (book illustrator) Laboratory findings: Complete Blood Count: Recent Labs [...] PROPHYLAXIS: Stress ulcer: [] PPI Agent [] [id number] [] Sucralfate [] Other: VTE: [] Enoxaparin [...] Braden Francois MD Department of Critical Care [facility] [place] 09/04/2021, 7:20 AM Attending Physician Statement I [...] this chart was generated using voice recognition SpeechCycleon dictation software. Although every effort was made to ensure the accuracy of this automated tire fabric impregnating range tender, some errors in tire fabric impregnating range tender may have occurred. Shun Cervantes MD 09/04/2021 [...] clear. Continue supportive therapy Infection Control Recommendations: Malone precautions Discharge Planning: Estimated Length of IV [...] were no complications encountered. Cardiovascular Diseases Fellow [facility] ONE XRAY VIEW OF THE CHEST 09/02/2021 [...] effusion and cardiomegaly. Cultures: Culture, Body Fluid [[id number]] (Abnormal) Collected: 08/29/21 0342 Order Status: Completed Specimen: Body Fluid Updated: 09/03/21 0731 Specimen Description .FLUID .PERICARDIAL FLUID Direct Exam RARE NEUTROPHILS Abnormal NO BACTERIA SEEN Gram stain made from cytocentrifuged specimen. Organisms and cells will be concentrated. Culture NO GROWTH 5 DAYS Culture, Blood 1 [[id number]] Collected: 08/31/21 1515 Order Status: Completed Specimen: Blood Updated: 09/03/21612 Specimen Description .BLOOD Culture NO GROWTH 3 DAYS Culture, Blood 1 [[id number]] Collected: 08/31/21 1519 Order Status: Completed Specimen: Blood Updated: 09/03/21612 Specimen Description .BLOOD Culture NO GROWTH 3 DAYS Culture, Blood 1 [[id number]] Collected: 08/30/21 0953 Order Status: Completed Specimen: Blood Updated: 09/03/21612 Specimen Description .BLOOD Special Requests 10ML R ARM Culture NO GROWTH 4 DAYS Culture, Blood 1 [[id number]] (Abnormal) Collected: 08/30/21 1001 Order Status: Completed [...] [place] at 0425 on 08/31/21 Culture, Respiratory [[id number]] (Abnormal) Collected: 08/30/21 2341 Order Status: Completed [...] Last Resulted: 09/02/21 08:28 Culture, Blood 1 [[id number]] (Abnormal) Collected: 08/30/21 1001 Order Status: Completed [...] 0425 on 08/31/21 MRSA DNA Probe, Nasal [[id number]] (Abnormal) Collected: 08/29/21 0813 Order Status: Completed [...] (Restricted: peds pts or suitable admitted adults) [[id number]] (Abnormal) Collected: 08/30/21 1115 Order Status: Completed [...] (Restricted: peds pts or suitable admitted adults) [[id number]] Collected: 08/30/21 0930 Order Status: Canceled Specimen: [...] day [facility] Ashish Henao MD [employer] messaging OFFICE: Thank you for allowing us [...] extrapolated by contextual diversion. * Jocelyn Ferro, [facility] - 09/03/2021 1:14 PM EDT Pharmacy Note Renal Dose Adjustment Elias Walker is a 36 y.o. male. Pharmacist assessment of renally cleared medications. Recent Labs 09/02/21 0841 09/03/21 06 BUN 31* 36* Recent Labs 09/02/21 0841 09/03/21 0642 CREATININE 1.86* 1.99* Estimated Creatinine Clearance: 59 mL/min (A) (based on SCr of 1.99 mg/dL (H)). Estimated CrCl using Pearce Body Weight: 42 mL/min (based on IBW 59.2 kg) Height: Ht Readings from Last 1 Encounters: 08/31/21 5' 4 (1.626 m) Weight: Wt Readings from Last 1 Encounters: 09/03/21 254 lb 13.6 oz (115.6 kg) The following medication dose has been adjusted based upon renal function per P&T Guidelines: Famotidine BID to daily Jocelyn Ferro PharmD [facility] 09/03/2021 1:13 PM * Falguni Sherman [...] loss Fluid Accumulation: No significant fluid accumulation Under Ground Miner Strength: Not Performed Nutrition Assessment: Chart reviewed. [...] at 25 mL/hr + 2 proteinex protein modulars/yrz=[id number] and 105 g pro/day Additional Calorie Sources: Propofol at 23.5 mL/hr (with possible increase per RN) =620 kcal/day Anthropometric Measures: Height: 5' 4 (162.6 cm) Pearce Body Weight (IBW): 130 lbs (59 kg) [...] Used for Energy Requirements: Admission Energy (kcal/day): 8176-0733 kcal/day Weight Used for Protein Requirements: Pearce Protein (g/day): 120 g/day Method Used for [...] About a week ago he presented to [facility] with complaints of chest pain and [...] placed on nitroglycerin drip and transferred to [facility]. Echocardiogram in the ER showed evidence of [...] Friends and Family: Not on file Attends Buddhism Services: Not on file Active Member of [...] MD Nephrology Attending Physician [facility] 09/03/2021 * Shun Cervantes MD - 09/03/2021 [...] Date 09/03/21 0000 - 09/03/21 2359 Shift [id number] 7845-4045 [id number] 24 Hour Total INTAKE I.V.(mL/kg) 866.5(7.5) 866.5(7.5) [...] Humidification Source: HME Cuff Pressure (cm H2O): (book illustrator) ABGs: Lab Results Component Value Date/Time FIO2 [...] PROPHYLAXIS: Stress ulcer: [] PPI Agent [] [id number] [] Sucralfate [] Other: VTE: [] Enoxaparin [...] this chart was generated using voice recognition SpeechCycleon dictation software. Although every effort was made to ensure the accuracy of this automated tire fabric impregnating range tender, some errors in tire fabric impregnating range tender may have occurred. Shun Cervantes MD 09/03/2021 1:12 PM * Lorna Moyer MD - 09/03/2021 6:48 AM EDT Images from the original note were not included. 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 I have seen and examined the patient and the salguero elements of the encounter have been performed by me. I agree with the assessment, plan and orders as documented by the resident With changesmade to the note. . [employer] [phone] * Ashish Henao MD - 09/02/2021 12:47 [...] clear. Continue supportive therapy Infection Control Recommendations: Malone precautions Discharge Planning: Estimated Length of IV [...] effusion and cardiomegaly. Cultures: Culture, Blood 1 [[id number]] (Abnormal) Collected: 08/30/21 1001 Order Status: Completed [...] at 0425 on 08/31/21 Culture, Blood 1 [[id number]] Collected: 08/30/21 0953 Order Status: Completed Specimen: Blood Updated: 09/02/21 1023 Specimen Description .BLOOD Special Requests 10ML R ARM Culture NO GROWTH 3 DAYS Culture, Respiratory [[id number]] (Abnormal) Collected: 08/30/21 2341 Order Status: Completed [...] Last Resulted: 09/02/21 08:28 Culture, Blood 1 [[id number]] Collected: 08/31/21 1515 Order Status: Completed Specimen: Blood Updated: 09/01/21 1554 Specimen Description .BLOOD Culture NO GROWTH 1 DAY Culture, Blood 1 [[id number]] Collected: 08/31/21 1519 Order Status: Completed Specimen: Blood Updated: 09/01/21 1528 Specimen Description .BLOOD Culture NO GROWTH 1 DAY Culture, Blood 1 [[id number]] (Abnormal) Collected: 08/30/21 1001 Order Status: Completed [...] 0425 on 08/31/21 MRSA DNA Probe, Nasal [[id number]] (Abnormal) Collected: 08/29/21 0813 Order Status: Completed [...] (Restricted: peds pts or suitable admitted adults) [[id number]] (Abnormal) Collected: 08/30/21 1115 Order Status: Completed [...] (Restricted: peds pts or suitable admitted adults) [[id number]] Collected: 08/30/21929 Order Status: Canceled Specimen: Nasopharyngeal Swab Medications: heparin (porcine) 5,000 Units SubCUTAneous 3 times per day furosemide 40 mg IntraVENous BID ceftaroline fosamil (TEFLARO) IVPB 400 mg IntraVENous Q12H famotidine 20 mg Per G Tube BID [Held by provider] carvedilol 6.25 mg Oral BID sodium chloride flush 5-40 mL IntraVENous 2 times per day [facility] Ashish Henoa MD [employer] OFFICE: Thank you for allowing us to [...] the original note were not included. [employer] Mechan[employer] Progress Note Date: 09/02/2021 Patient name: Elias [...] collapse-which goes against echocardiographic tamponade. Rosa RICARDO [facility] Work Phone: evaluation noteNo assessment information available [facility] Work Phone: Evaluation note* Diagnosis Cerebral septic [...] accident (CVA) (HCC) documented in this encounter [employer] Phone: evaluation note* Diagnosis Sepsis due to Streptococcus species without acute organ dysfunction (HCC)- Primary documented in this encounter [employer] Phone: evaluation note* Diagnosis Sepsis due to Streptococcus species without acute organ dysfunction (HCC)- Primary documented in this encounter [employer] Phone: evaluation note* Diagnosis Sepsis due to Streptococcus species without acute organ dysfunction (HCC)- Primary documented in this encounter [employer] Phone: evaluation note* Diagnosis Sepsis due to Streptococcus species without acute organ dysfunction (HCC)- Primary documented in this encounter [employer] Phone: evaluation note* Diagnosis Acute kidney injury (HCC) Acute kidney failure, unspecified documented in this encounter [employer] Phone: evaluation note* Diagnosis Sepsis due to Streptococcus species without acute organ dysfunction (HCC)- Primary documented in this encounter [employer] Phone: evaluation note* Diagnosis Sepsis due to Streptococcus species without acute organ dysfunction (HCC)- Primary documented in this encounter [employer] Phone: evaluation note* Diagnosis Sepsis due to Streptococcus species without acute organ dysfunction (HCC)- Primary documented in this encounter [employer] Phone: evaluation note* Diagnosis Sepsis due to Streptococcus species without acute organ dysfunction (HCC)- Primary documented in this encounter [employer] Phone: evaluation note* Diagnosis Sepsis due to Streptococcus species without acute organ dysfunction (HCC)- Primary documented in this encounter [employer] Phone: evaluation note* Diagnosis Sepsis due to Streptococcus species without acute organ dysfunction (HCC)- Primary documented in this encounter [employer] Phone: evalwqyguc note* Diagnosis Sepsis due to Streptococcus species without acute organ dysfunction (HCC)- Primary documented in this encounter [employer] Phone: evaluation note* Diagnosis Acute kidney injury (HCC) Acute kidney failure, unspecified Hypercalcemia Dilated cardiomyopathy (HCC) Other primary cardiomyopathies Primary hypertension Unspecified essential hypertension documented in this encounter [employer] Phone: evalcefatc note* Diagnosis Sepsis due to Streptococcus species without acute organ dysfunction (HCC)- Primary documented in this encounter [employer] Phone: evaluation note* Diagnosis Hypercalcemia documented in this encounter [employer] Phone: evaluation note* Diagnosis Multiple vessel coronary artery disease- Primary Coronary atherosclerosis of unspecified type of vessel, [place] or graft S/P CABG (coronary artery bypass graft) Postsurgical aortocoronary bypass status NSTEMI (non-ST elevated myocardial infarction) ([facility]) Acute myocardial infarction, subendocardial infarction, episode of care unspecified Hypertensive crisis Unspecified essential hypertension Acute kidney injury superimposed on CKD (HCC) Morbid obesity ([facility]) Morbid obesity Anxiety Anxiety state, unspecified Essential hypertension Unspecified essential hypertension Allergic rhinitis Allergic rhinitis, cause unspecified HHNC (hyperglycemic hyperosmolar nonketotic coma) ([facility]) Type II or unspecified type diabetes mellitus with hyperosmolarity, not stated as uncontrolled History of primary hyperparathyroidism IAN (obstructive sleep apnea) Obstructive sleep apnea (adult) (pediatric) History of type 2 diabetes mellitus Personal history of other endocrine, metabolic, and immunity disorders documented in this encounter [employer] Phone: evaltrgaic note* Diagnosis Acute kidney injury (HCC) Acute kidney failure, unspecified Hypercalcemia Dilated cardiomyopathy (HCC) Other primary cardiomyopathies Primary hypertension Unspecified essential hypertension documented in this encounter [employer] Phone: evaluation note* Diagnosis Acute kidney injury [...] Unspecified essential hypertension documented in this encounter [facility] [employer] Phone: evaluation note* Diagnosis Mixed hyperlipidemia documented in this encounter [facility]* Diagnosis Type 2 diabetes mellitus with microalbuminuria, without long-term current use of insulin ([facility]) documented in this encounter [facility]* Diagnosis Uncontrolled type 2 diabetes mellitus with hyperglycemia ([facility])- Primary Type 2 diabetes mellitus with microalbuminuria, without long-term current use of insulin ([facility]) Type 2 diabetes mellitus with stage 3 chronic kidney disease and hypertension ([facility]) documented in this encounter [facility]* Diagnosis Uncontrolled type 2 diabetes mellitus with hyperglycemia ([facility]) Type 2 diabetes mellitus with stage 3 chronic kidney disease and hypertension ([facility]) Type 2 diabetes mellitus with microalbuminuria, without long-term current use of insulin ([facility]) documented in this encounter [facility]* Diagnosis Type 2 diabetes mellitus with microalbuminuria, without long-term current use of insulin ([facility])- Primary documented in this encounter [facility]* Diagnosis Seasonal allergic rhinitis due to pollen documented in this encounter [facility]* Diagnosis Type 2 diabetes mellitus with microalbuminuria, without long-term current use of insulin ([facility])- Primary Mixed anxiety and depressive disorder Dysthymic disorder Mixed hyperlipidemia Stage 3b chronic kidney disease ([facility]) documented in this encounter [facility]* Diagnosis Type 2 diabetes mellitus with microalbuminuria, without long-term current use of insulin ([facility])- Primary Primary hypertension Unspecified essential hypertension Current moderate episode of major depressive disorder without prior episode ([facility]) Mixed hyperlipidemia documented in this encounter [facility]* Diagnosis Type 2 diabetes mellitus with microalbuminuria, without long-term current use of insulin ([facility])- Primary documented in this encounter [facility]* Diagnosis Lesion of tongue- Primary documented in this encounter [facility]* Diagnosis Lesion of tongue- Primary documented in this encounter [facility]* Diagnosis Type 2 diabetes mellitus with microalbuminuria, without long-term current use of insulin ([facility])- Primary Type 2 diabetes mellitus with stage 3 chronic kidney disease and hypertension ([facility]) Anxiety and depression Snoring Other dyspnea and respiratory abnormality Mixed hyperlipidemia documented in this encounter [facility]* Diagnosis Type 2 diabetes mellitus with microalbuminuria, without long-term current use of insulin ([facility])- Primary Fasting hyperglycemia documented in this encounter [facility]* Diagnosis Uncontrolled type 2 diabetes mellitus with hyperglycemia ([facility])- Primary Moderate episode of recurrent major depressive disorder ([facility]) documented in this encounter [facility]* Diagnosis Folliculitis- Primary Other specified disease of hair and hair follicles documented in this encounter [facility]* Diagnosis Type 2 diabetes mellitus with microalbuminuria, without long-term current use of insulin ([facility]) documented in this encounter [facility]* Diagnosis Type 2 diabetes mellitus with microalbuminuria, without long-term current use of insulin ([facility])- Primary documented in this encounter [facility]* Diagnosis Moderate episode of recurrent major depressive disorder ([facility]) Type 2 diabetes mellitus with stage 3 chronic kidney disease and hypertension ([facility]) documented in this encounter [facility]* Diagnosis Type 2 diabetes mellitus with microalbuminuria, without long-term current use of insulin ([facility])- Primary Moderate episode of recurrent major depressive disorder ([facility]) Mixed hyperlipidemia Seasonal allergic rhinitis due to pollen Type 2 diabetes mellitus with stage 3 chronic kidney disease and hypertension ([facility]) Anxiety and depression Comprehensive diabetic foot examination, type 2 DM, encounter for ([facility] Diagnosis Type 2 diabetes mellitus with microalbuminuria, without long-term current use of insulin ([facility]) documented in this encounter [facility]* Diagnosis Type 2 diabetes mellitus with microalbuminuria, without long-term current use of insulin ([facility])- Primary [facility] Diagnosis Type 2 diabetes mellitus with microalbuminuria, without long-term current use of insulin ([facility])- Primary documented in this encounter [facility]* Diagnosis Type 2 diabetes mellitus with other diabetic kidney complication ([facility]) Essential hypertension, malignant Stage 3 chronic kidney disease, unspecified whether stage 3a or 3b CKD ([facility]) Morbid obesity ([facility]) Morbid obesity documented in this encounter [facility]* Diagnosis Moderate episode of recurrent major depressive disorder ([facility]) documented in this encounter [facility]* Diagnosis Uncontrolled type 2 diabetes mellitus with hyperglycemia ([facility])- Primary Type 2 diabetes mellitus with microalbuminuria, without long-term current use of insulin ([facility]) Anxiety and depression Type 2 diabetes mellitus with stage 3 chronic kidney disease and hypertension ([facility]) documented in this encounter [facility]* Diagnosis Seasonal allergic rhinitis due to pollen documented in this encounter [facility]* Diagnosis Type 2 diabetes mellitus with microalbuminuria, without long-term current use of insulin ([facility])- Primary documented in this encounter [facility]* Diagnosis Loose stools- Primary Abnormal feces documented in this encounter [facility]* Diagnosis Loose stools- Primary Abnormal feces documented in this encounter [facility]* Diagnosis Mixed hyperlipidemia documented in this encounter [facility]* Diagnosis Mixed hyperlipidemia documented in this encounter [facility]* Diagnosis Screen for STD (sexually transmitted disease)- Primary Screening examination for venereal disease Type 2 diabetes mellitus with stage 3 chronic kidney disease and hypertension ([facility]) Primary hypertension Unspecified essential hypertension Loose stools Abnormal feces Moderate episode of recurrent major depressive disorder ([facility]) Class 3 severe obesity due to excess calories with serious comorbidity and body mass index (BMI) of40.0 to 44.9 in adult ([facility]) documented in this encounter [facility]* Diagnosis Anxiety and depression documented in this encounter [facility] SystemInstructionsNot on filedocumented in this encounter [facility] SystemInstructions* Attachments The following attachments cannot be sent through Care Everywhere. * Diabetes and diet (Irish) [facility]* Attachments The following attachments cannot be sent through Care Everywhere. * Diabetes and diet (Irish) documented in this encounterPro[facility] Linkage SystemInstructionsNot on file documented in this encounterProGrand[facility] Linkage SystemInstructionsNot on file documented in this encounterProGrand[facility] Linkage SystemInstructionsNot on file documented in this encounterPro[facility] SystemInstructions* Attachments The following attachments cannot be sent through Care Everywhere. * Diabetes Exchange Diet (Irish) documented in this encounterProGrand[facility] Linkage SystemInstructionsNot on file documented in this encounterProGrand[facility] Linkage SystemInstructionsNot on file documented in this encounterProGrand[facility] Linkage SystemInstructionsNot on file documented in this encounterPro[facility] SystemInstructions* Attachments The following attachments cannot be sent through Care Everywhere. * Anxiety Discharge Instructions, Adult (Irish) documented in this encounterProGrand[facility] Linkage SystemInstructionsNot on file documented in this encounterProGrand[facility] Linkage SystemInstructionsNot on file documented [facility] SystemInstructions* Attachments The following attachments cannot be sent through Care Everywhere. * Carb counting for adults with diabetes (Irish) documented in this encounterPro[facility] Linkage SystemInstructions* Attachments The following attachments cannot be sent through Care Everywhere. * Folliculitis (Irish) documented in this encounterProGrand[facility] Linkage SystemInstructionsNot on file documented in this encounterProGrand[facility] Linkage SystemInstructionsNot on file documented in this encounterProGrand[facility] Linkage SystemInstructions* Attachments The following attachments cannot be sent through Care Everywhere. * Depression (Irish) documented in this encounterPro[facility] Linkage SystemInstructionsNot on file documented in [facility] encounterMer[facility] Linkage SystemInstructions* Attachments The following attachments cannot be sent through Care Everywhere. * Carb counting for adults with diabetes (Irish) documented in this encounterProGrand[facility] Linkage SystemInstructionsNot on file documented in this encounterProGrand[facility] Linkage SystemInstructionsNot on file documented in [facility] encounterC[facility] SystemReason for referral (narrative)* Consultation (Routine) - Pending ReviewSpecialtyDiagnoses / ProceduresReferred By ContactReferred To ContactOtolaryngology Diagnoses Lesion of tongue Eliana Merino, INDUSTRIAL COOK-NET DEVELOPER CONSULTANT [address] [place] [address] Kate Matt MD [address] [address] Referral IDStatusReasonStart DateExpiration DateVisits RequestedVisits [id number] Review Specialty Services Required [facility] for referral (narrative)* Consultation (Routine) - Pending ReviewSpecialtyDiagnoses / ProceduresReferred By ContactReferred To [facility] Medicine Diagnoses Snoring Jose Khanna, INDUSTRIAL COOK-SEAM FELLER [address] [place] [address] Pari Painter MD [facility] [place] [address] Referral IDStatusReasonStgracemont DateExpiration DateVisits RequestedVisits [id number] Review Specialty Services Required [facility] for visit Narrative* Treatment Plan and Therapy Plan (Routine) - AuthorizedSpecialtyDiagnoses / ProceduresReferred By Contact Referred To Contact Diagnoses Sepsis due to Streptococcus species without acute organ dysfunction (HCC) Procedures ND CEFTRIAXONE SODIUM INJECTION Jared Hernandez MD [address] [facility] [facility] [address] [place] [address] Med Surg [address] [place] [address] Referral IDStatusReasonStart DateExpiration DateVisits RequestedVisits [id number]/10/20227/999 [facility] Phone: reason for visit Narrative* Treatment Plan and Therapy Plan (Routine) - OpenSpecialtyDiagnoses / ProceduresReferred By Contact Referred To Contact Diagnoses Sepsis due to Streptococcus species without acute organ dysfunction (HCC) Jared Hernandez MD [address] [facility] [place] [address] [facility] [address] [place] [address] Referral IDStatusReasonStart DateExpiration DateVisits RequestedVisits [id number]/12/20227/ [employer] Phone: Chief Complaint and Reason for Visit [...] (HCC) Vitamin D deficiency Solange Mercer MD [address] [place] [address] Chioma Dawkins MD [address] [place] [address] Referral IDStatusReasonStart DateExpiration DateVisits RequestedVisits [id number] Specialty Services Required /[id number] / ProceduresReferred By ContactReferred To Contact Diagnoses Type 2 diabetes mellitus with microalbuminuria, without long-term current use of insulin ([facility]) Jose Khanna, INDUSTRIAL COOK-SEAM FELLER [address] [place] [address] Referral IDStatusReasonStart DateExpiration DateVisits RequestedVisits [id number] IDStatusReasonStart DateExpiration DateVisits RequestedVisits [id number] Review/ SpecialtyDiagnoses / ProceduresReferred By ContactReferred To Contact Diagnoses Moderate episode of recurrent major depressive disorder ([facility]) Jose Khanna, INDUSTRIAL COOK-SEAM FELLER [address] [place] [address] Referral IDStatusReasonStart DateExpiration DateVisits RequestedVisits [id number]/9/20249/[id number] IDStatusReasonStart Date Expiration DateVisits RequestedVisits [id number] [id number] IDStatusReasonStart DateExpiration DateVisits Requested Visits [id number] Summary Purpose Family History No Family History [...] Active Team MemberRelationshipSpecialtyStart DateEnd Date Jose Khanna, INDUSTRIAL COOK - SEAM FELLER [address], [place] [address] PCP - Iqnvpzv29/6/22Team MemberRelationshipSpecialtyStart DateEnd Date Jose Khanna, INDUSTRIAL COOK - SEAM FELLER [address], [place] [place] [address] PCP - Vvjvhei59/6/22Team MemberRelationshipSpecialtyStart DateEnd Date Jose Khanna [facility] [address], [place] [address] PCP - Mzplaji20/6/22Team MemberRelationshipSpecialtyStart DateEnd Date Jose Khanna, [facility] [address], [place] [address] PCP - Xwcohsb78/6/22Team MemberRelationshipSpecialtyStart DateEnd Date Jose Khanna [facility] [address], [place] [address] PCP - Pndklfo48/6/22Team MemberRelationshipSpecialtyStart DateEnd Date Jose Khanna, [facility] [address], [place] [address] PCP - Ogkmpsw96/6/22Team MemberRelationshipSpecialtyStart DateEnd Date Jose Khanna, [facility] [address], [place] [address] PCP - Yyndmci98/6/22Team MemberRelationshipSpecialtyStart DateEnd Date Jose Khanna, [facility] [address] [place] [address] PCP - GeneralFamily Medicine10/21/21Team MemberRelationshipSpecialtyStart DateEnd Date Jose Khanna, [facility] [address] [place] [address] PCP - Generalmily Medicine10/21/21Team MemberRelationshipSpecialtyStart DateEnd Date Jose Khanna, [facility] [address] [place] [address] PCP - GeneralFamily Medicine10/21/21Team MemberRelationshipSpecialtyStart DateEnd Date Jose Khanna, [facility] [address] [place] [address] PCP - Generalmily Medicine10/21/21Team MemberRelationshipSpecialtyStart DateEnd Date Jose Khanna, [facility] [address] [place] [address] PCP - GeneralFamily Medicine10/21/21Team MemberRelationshipSpecialtyStart DateEnd Date Jose Khanna, [facility] [address] [place] [address] PCP - GeneralFamily Medicine10/21/21Team MemberRelationshipSpecialtyStart DateEnd Date Jose Khanna, [facility] [address] [place] [address] PCP - Generalmi Medicine10/21/21Team MemberRelationshipSpecialtyStart DateEnd Date Jose Khanna, [facility] [address] [place] [address] PCP - Generalmi Medicine10/21/21Team MemberRelationshipSpecialtyStart DateEnd Date Jose Khanna, [facility] [address] [place] [address] PCP - Generalmi Medicine10/21/21Team MemberRelationshipSpecialtyStart DateEnd Date Jose Khanna, [facility] [address] [place] [address] PCP - Generalmily Medicine10/21/21Team MemberRelationshipSpecialtyStart DateEnd Date Jose Khanna, [facility] [address], [place] [address] PCP - GeneralFamily Medicine10/21/21Team MemberRelationshipSpecialtyStart DateEnd Date Jose Khanna, [facility] [address] [place] [address] PCP - GeneralFamily Medicine10/21/21Team MemberRelationshipSpecialtyStart DateEnd Date Jose Kahnna, [facility] [address] [place] [address] PCP - GeneralFamily Medicine10/21/21Team MemberRelationshipSpecialtyStart DateEnd Date Jose Khanna [facility] [address] [place] [address] PCP - GeneralFamily Medicine10/21/21Team MemberRelationshipSpecialtyStart DateEnd Date Jose Khanna, [facility] [address] [place] [address] PCP - GeneralFamily Medicine10/21/21Team MemberRelationshipSpecialtyStart DateEnd Date Jose Khanna [facility] [address] [place] [address] PCP - GeneralFamily Medicine10/21/21Team MemberRelationshipSpecialtyStart DateEnd Date Jose Khanna, [facility] [address] [place] [address] PCP - GeneralFamily Medicine10/21/21Team MemberRelationshipSpecialtyStart DateEnd Date Jose Khanna, [facility] [address] [place] [address] PCP - Generalmi Medicine10/21/21Team MemberRelationshipSpecialtyStart DateEnd Date Jose Khanna, [facility] [address] [place] [address] PCP - [facility] Medicine10/21/21Team MemberRelationshipSpecialtyStart DateEnd Date Jose Khanna, [facility] [address] [place] [address] PCP - [facility] Medicine10/21/21Team MemberRelationshipSpecialtyStart DateEnd Date Jose Khanna, [facility] [address] [place] [address] PCP - Generalmi Medicine10/21/21Team MemberRelationshipSpecialtyStart DateEnd Date Jose Khanna, [facility] [address] [place] [address] PCP - Generalmi Medicine10/21/21Team MemberRelationshipSpecialtyStart DateEnd Date Sheng Buckner, [facility] [address] [place] [address] [facility] - [facility] Bxplyqkz75/27/25Team MemberRelationshipSpecialtyStart Date End Date Sheng Buckner, [facility] [address] [place] [address] PCP - GeneralInternal Blncotmr23/27/25 Goals (unrecognized section and content) Goals may [...] PainNo longer has chest pain, [facility] with chest painPolydipsiaSpecialtyDiagnoses / ProceduresReferred By ContactReferred To Contact Diagnoses NSTEMI (non-ST elevated myocardial infarction) (HCC) NSTEMI Fly Zapata DO [address] [place] [address] [facility] [address] [place] [address] Referral IDStatusReasonStart DateExpiration DateVisits RequestedVisits [id number] DateCommentsMed [id number] Follow-upReasonCommentsDiabetesBeen running high. 190ReasonCommentsDexcom TrainingReasonCommentsMed RefillReasonCommentsFollow-upReasonCommentsDiabetes HypertensionReasonCommentskeeps biting tongue more frequent last 3 weeksReason CommentsDiabetesReasonCommentsDiabetesSugar been sads962FxuvhdWtrakaduknqljix Blood sugarsBlood sugars have been fine except the first day was 500. Then today 215 fastingReasonCommentslump under right armReasonCommentsCGM Application Instructed patient and his girlfriend, Nicolle on how to apply the Dexcom 7. Nicolle states that she understands and I have instructed them if they need to come back they can for his next application.ReasonOnset DateCommentsMed Refill 4ReasonCommentsApplication of DexcomReasonOnset DateCommentsMed Refill 30[id number] accucheckHypertensionReasonCommentsMed Change RequestReasonOnset DateCommentsMed Kzywyn924ReasonCommentsMed Change RequestReasonOnset DateCommentsBlood Sugar Asvjsma48/27/2024ReasonOnset DateCommentsMed Kqxrvp0004/21/2024ReasonCommentsMNT - IndividualSpecialtyDiagnoses / ProceduresReferred By ContactReferred To ContactEndocrinology, Diabetes & Metabolism Diagnoses Type 2 diabetes mellitus with other diabetic kidney complication ([facility]) Essential hypertension, malignant Stage 3 chronic kidney disease, unspecified whether stage 3a or 3b CKD ([facility]) Morbid obesity ([facility]) Jacob Cochran, DO [address] [place] [address] Phone: tel: fax: [facility] [address] [place] [address] Phone: tel: fax: Referral IDStatusReasonStart DateExpiration DateVisits RequestedVisits [id number] Review Specialty Services Required [id number]jydblhsoyxFlxnigbxakPpyeggDhzdf Date CommentsAppointment Vnoucff5910/02/2024ReasonCommentsest care/ partner tested positive for Trich- needs tested Ordered Prescriptions (unrec ognized section and content) PrescriptionSigDispensedRefillsStart DateEnd Date Vitamin D, Ergocalciferol, 16382 units CAPS 50,000 Units by Per NG [...] protocol 32 g / Ergocalciferol (VITAMIN D) 96334 units CAPS 50,000 Units by Per NG [...] RN) * 0845 (Given - Provider: Jessica Lya RN) * 1638 (Given - Provider: Jessica Lay RN) * 0146 (Given - Provider: Ladonna Elise RN) * 0827 (Given - Provider: Triny Lea RN) * 1700 (Due - Provider: Ariel Sifuentes [facility]) NIFEdipine (PROCARDIA XL) extended release tablet 30 [...] Low Dose Algorithm Glucose: Dose: 70-139 No [id number] 1 Unit 250-349 2 Units Over 350 [...] DAILY, First dose (after last modification) on [place] 06/05/22 at 2100, Until Discontinued, Hold for [...] mL 5-40 mL, IntraVENous, PRN, Starting on [place] 06/02/22 at 1824, Until Discontinued, Line Care, [...] section and content) DATE CREATED AUTHOR 04/09/2022 [facility] DATE CREATED AUTHOR AUTHOR'S ORGANIZ ATION 05/25/2022 [facility] DATE CREATED AUTHOR AUTHOR'S ORGANIZ ATION 10/24/2022 [facility] DATE CREATED AUTHOR AUTHOR'S ORGANIZ ATION 04/03/2023 [facility] DATE CREATED AUTHOR AUTHOR'S ORGANIZ ATION 09/06/2023 [facility] DATE CREATED AUTHOR AUTHOR'S ORGANIZ ATION 02/16/2024 [facility] DATE CREATED AUTHOR AUTHOR'S ORGANIZ ATION 11/16/2024 [facility] DATE CREATED AUTHOR AUTHOR'S ORGANIZ ATION 12/13/2024 [facility] DATE CREATED AUTHOR AUTHOR'S ORGANIZ ATION 12/31/2024 [facility] FOR RECORDS PERTAINING TO [...] BE BASED ON THE PRIMARY CLINICAL RECORDS. [email or web address] [facility]. provides no warranty or guarantee of the accuracy or completeness of information in this document.
[2025-03-03 23:04] LABS: Hematocrit 45.8 % (42.0-54.0); Hemoglobin 15.2 g/dL (14.0-18.0); Immature Granulocytes Abs Auto 0.02 10^3/uL (0.00-0.03); Immature Granulocytes Pct Auto 0.2 % (0.0-0.5); Lymphocytes Absolute Auto 3.4 10^3/uL (1.2-3.8); Mean Corpuscular HGB Conc 33.2 g/dL (29.9-35.2); Mean Corpuscular Hemoglobin 29.4 pg (25.9-34.0); Mean Corpuscular Volume 88.6 fL (80.0-94.0); Platelet Count 230 10^3/uL (150-450); Red Blood Count 5.17 10^6/uL (4.70-6.10); White Blood Count 11.2 10^3/uL (4.0-11.0)
[2025-03-03] MEDS: ACETAMINOPHEN 325 MG TABLET 650 MG PO (23:12)
[2025-03-03] MEDS: AMPICILLIN SODIUM/SULBACTAM NA 3 GM in 0.9 % SODIUM CHLORIDE 100 ML IV (23:12)
--- NOTE | 2025-03-03 23:17 | ED.SKABFB1 ---
HPI - Skin/Abscess/Foreign Bdy General Chief complaint: Skin/Abscess/Foreign Body Stated complaint: Bite Time Seen by Provider: 03/03/25 19:30 Source: patient Mode of arrival: walk-in Limitations: no limitations History of Present Illness HPI narrative: This 39-year-old male with a history of diabetes, hypertension and obesity who is seen here on 1225 for an infection on the dorsal aspect of his left hand presents for evaluation of this infection. He states he woke up [place] morning and had what looked like a bite on the distal end of the fourth metacarpal. He had some erythema on the hand at that time as well. He was seen here and prescribed Bactrim and Keflex for the infection. He states he has soaked it a couple times since coming here but has not been soaking it routinely. He states that the redness has increased over the dorsal aspect of his hand that was formally just on his 4th and 5th metacarpals but is now extended closer to his thenar eminence. He has some mild swelling the dorsal aspect of his hand but is able to make a fist. There is no lymphangitic streaking. He has not had any fever. Related Data Home Medications ?Medication ?Instructions ?Recorded ?Confirmed aripiprazole 5 mg tablet 5 mg PO DAILY 04/10/23 01/17/25 aspirin 81 mg tablet,delayed 81 mg PO DAILY 04/10/23 01/17/25 release (Adult Low Dose Aspirin) clopidogrel 75 mg tablet 75 mg PO DAILY 04/10/23 01/17/25 dapagliflozin propanediol 10 mg 10 mg PO DAILY 04/10/23 01/17/25 tablet fluoxetine 20 mg capsule 20 mg PO DAILY 04/10/23 01/17/25 fluticasone propionate 50 2 spray intranasal DAILY PRN 04/10/23 01/17/25 mcg/actuation nasal congestion spray,suspension (Allergy Relief (fluticasone)) lisinopril 5 mg tablet 5 mg PO DAILY 04/24/23 01/17/25 atorvastatin 80 mg tablet 80 mg PO DAILY 01/17/25 01/17/25 cariprazine 1.5 mg capsule 1.5 mg PO QAM 01/17/25 01/17/25 (Vraylar) cetirizine 10 mg tablet 10 mg PO QAM 11/14/25 11/14/25 dulaglutide 3 mg/0.5 mL 3 mg subcut QWEEK 01/17/25 01/17/25 subcutaneous pen injector (Trulicity) insulin glargine 100 unit/mL (3 62 unit subcut QPM 01/17/25 01/17/25 mL) subcutaneous pen (Lantus Solostar U-100 Insulin) metoprolol tartrate 25 mg tablet 25 mg PO BID 01/17/25 01/17/25 Previous Rx's ?Medication ?Instructions ?Recorded cephalexin 500 mg capsule 500 mg PO Q12H 10 days #20 caps 03/01/25 sulfamethoxazole 800 1 tab PO Q12H 10 days #20 tabs 03/01/25 mg-trimethoprim 160 mg tablet (Bactrim DS) Allergies Allergy/AdvReac Type Severity Reaction Status Date / Time bupropion (From Wellbutrin) Allergy Severe Agitated Verified 03/03/25 19:32 Review of Systems ROS Status of ROS 10 or more systems reviewed and unremarkable except as noted in history and below [facility] Medical History (Updated 03/03/25 @ 23:48 by Martha Upton MD) COVID-19 ?U07.1 - COVID-19 (ICD-10) Seasonal allergic rhinitis ?J30.2 - Other seasonal allergic rhinitis (ICD-10) Hyperlipidemia ?E78.5 - Hyperlipidemia, unspecified (ICD-10) Hypertension ?I10 - Essential (primary) hypertension (ICD-10) Myocardial infarction ?I21.9 - Acute myocardial infarction, unspecified (ICD-10) CVA (cerebral vascular accident) ?I63.9 - Cerebral infarction, unspecified (ICD-10) Tongue lesion ?K14.8 - Other diseases of tongue (ICD-10) Surgical History (Updated 04/10/23 @ 08:21 by Clint Vargas) Status post biopsy of kidney ?Z98.890 - Other specified postprocedural states (ICD-10) H/O partial thyroidectomy ?E89.0 - Postprocedural hypothyroidism (ICD-10) H/O parathyroidectomy ?Z98.890 - Other specified postprocedural states (ICD-10) ?Z90.89 - Acquired absence of other organs (ICD-10) History of coronary artery bypass graft ?Z95.1 - Presence of aortocoronary bypass graft (ICD-10) Family History (Updated 04/10/23 @ 08:30 by Clint Vargas) Mother Family history of diabetes mellitus Social History Smoking status: Light tobacco smoker Little interest or pleasure in doing things: not at all Feeling down, depressed, or hopeless: not at all Exam Narrative Exam Narrative: Vital signs and Nursing Notes reviewed: Patient is afebrile, mildly tachycardic with a pulse of 102 and blood pressure is elevated at 151/70, he is not hypoxic with pulse ox of 95% on room air General: Awake, alert, oriented, no acute distress, lying comfortably on the stretcher HEENT: Normocephalic atraumatic, mucous membranes are moist and pink, eyes are clear, normal conjunctiva, vision is grossly intact Neck: Supple, no meningeal signs, no anterior or posterior cervical lymphadenopathy Chest: Lungs are clear to auscultation with good air entry, there is no wheezing rhonchi or rales appreciated no accessory muscle use, patient is speaking in complete sentences-no chest wall tenderness to palpation CVS: Regular rate and rhythm S1-S2, no murmurs rubs or gallops, pulses are brisk and equal bilaterally Extremities: There is redness consistent with cellulitis on the dorsal aspect of the left hand with an proximately 1 cm swollen mildly tender area that does not produce any purulent drainage when expressed. Patient is able to make a loose fist. There is no lymphangitic streaking or fluctuance appreciated. This redness does not extend onto the fingers or past the wrist. Skin: Cellulitis of the left hand as described above Neuro: No focal deficits Constitutional Vital Signs, click to edit/add: Last Vital Signs Temp 98.4 F 03/03/25 19:25 Pulse 102 H 03/03/25 19:25 Resp 17 03/03/25 19:25 BP 151/70 H 03/03/25 19:25 Pulse Ox 95 03/03/25 19:25 O2 Del Method Room Air 03/03/25 19:25 Course Vital Signs Vital signs: Vital Signs Temperature 98.4 F 03/03/25 19:25 Pulse Rate 102 H 03/03/25 19:25 Respiratory Rate 17 03/03/25 19:25 Blood Pressure 151/70 H 03/03/25 19:25 Pulse Oximetry 95 03/03/25 19:25 Oxygen Delivery Method Room Air 03/03/25 19:25 Temperature 98.4 F 03/03/25 19:25 Pulse Rate 102 H 03/03/25 19:25 Respiratory Rate 17 03/03/25 19:25 Blood Pressure 151/70 H 03/03/25 19:25 Pulse Oximetry 95 03/03/25 19:25 Oxygen Delivery Method Room Air 03/03/25 19:25 MDM - Skin/Abscess/Foreign Bdy MDM Narrative Medical decision making narrative: This 39-year-old male with a history of diabetes who was seen here on for a left hand cellulitis presents for reevaluation. He states that he woke up and thought that he had been bit by something because he had a pustule on the distal end of his left fourth metacarpal. He has not had any fever. He was prescribed Keflex and Bactrim for the infection. He has not had any drainage. He does not have any lymphangitic streaking. He states that he feels like the redness has gotten worse despite being on the antibiotics. He has soaked his hand very minimally since being seen here. He does have redness and some swelling of the dorsal aspect of his left hand. There is no purulent drainage able to be expressed or cultured. Due to the fact that he is on 2 antibiotics and his symptoms do not appear to be improving an IV was placed and he was given 3 g of IV Unasyn. Routine labs were ordered. His white count is minimally elevated at 11.2 with a stable hemoglobin. BUN is elevated compared to his baseline at 40 and creatinine is 2.6. Inflammatory marker CRP and sed rate are also elevated. His hand was soaked while he received his IV antibiotics and symptoms appear to be improving. Due to the fact that he is not having any fever, no lymphangitic streaking, no body aches etc. he will be discharged home with recommendation to stop the Bactrim which is likely affecting his kidneys to some degree and the Keflex and instead take the Augmentin. He was also encouraged to soak his hand 3-4 times a day in warm Epsom salt water and return to the emergency department for worsening symptoms or any concerns. Lab Data Labs: Lab Results 03/03/25 Range/Units 22:56 WBC 11.2 H (4.0-11.0) 10^3/uL RBC 5.17 (4.70-6.10) 10^6/uL Hgb 15.2 (14.0-18.0) g/dL Hct 45.8 (42.0-54.0) % MCV 88.6 (80.0-94.0) fL MCH 29.4 (25.9-34.0) pg MCHC 33.2 (29.9-35.2) g/dL RDW 13.5 (11.0-15.0) % Plt Count 230 (150-450) 10^3/uL MPV 10.1 (9.5-13.5) fL Neut % (Auto) 57.3 (43.0-75.0) % Lymph % (Auto) 30.2 (20.5-60.0) % Pope % (Auto) 11.0 (1.7-12.0) % Eos % (Auto) 0.9 (0.9-7.0) % Baso % (Auto) 0.4 (0.2-2.0) % Neut # (Auto) 6.5 (1.4-6.5) 10^3/uL Lymph # (Auto) 3.4 (1.2-3.8) 10^3/uL Pope # (Auto) 1.2 H (0.3-0.8) 10^3/uL Eos # (Auto) 0.1 (0.0-0.7) 10^3/uL Baso # (Auto) 0.0 (0.0-0.1) 10^3/uL Abs Immat Gran (auto) 0.02 (0.00-0.03) 10^3/uL Imm/Tot Granulo (auto) 0.2 (0.0-0.5) % ESR 61 H (<=15) mm/hr Sodium 140 (136-145) mmol/L Potassium 4.9 (3.5-5.1) mmol/L Chloride 105 (98-107) mmol/L Carbon Dioxide 26.8 (21.0-32.0) mmol/L Anion Gap 13.1 BUN 40.0 H (7.0-18.0) mg/dL Creatinine 2.63 H (0.70-1.30) mg/dL Est GFR ( Amer) 33 L (>=60 mL/min/1.73m^2) Est GFR (Non-Af Amer) 27 L (>=60 mL/min/1.73m^2) BUN/Creatinine Ratio 15.2 Glucose 104 (74-106) mg/dL Lactate 1.0 (0.4-2.0) mmol/L Calcium 10.0 (8.5-10.1) mg/dL Total Bilirubin 0.5 (0.2-1.0) mg/dL AST 11 L (15-37) U/L ALT 30 (16-63) U/L Alkaline Phosphatase 101 (46-116) U/L C-Reactive Protein 1.42 H (<=0.50) mg/dL Total Protein 8.3 H (6.4-8.2) g/dL Albumin 3.8 (3.4-5.0) g/dL Globulin 4.5 g/dL Albumin/Globulin Ratio 0.8 Discharge Plan Discharge Chief Complaint: Skin/Abscess/Foreign Body Clinical Impression: Cellulitis Patient Disposition: Home, Self-Care Time of Disposition Decision: 23:47 Condition: Good Prescriptions / Home Meds: No Action lisinopril 5 mg tablet 5 mg PO DAILY sulfamethoxazole-trimethoprim [Bactrim DS] 800-160 mg tablet 1 tab PO Q12H 10 Days Qty: 20 0RF cephalexin 500 mg capsule 500 mg PO Q12H 10 Days Qty: 20 0RF atorvastatin 80 mg tablet 80 mg PO DAILY Vraylar 1.5 mg capsule 1.5 mg PO QAM cetirizine 10 mg tablet 10 mg PO QAM Trulicity 3 mg/0.5 mL pen injector 3 mg SUBCUT QWEEK insulin glargine [Lantus Solostar U-100 Insulin] 100 unit/mL (3 mL) insulin pen 62 unit SUBCUT QPM metoprolol tartrate 25 mg tablet 25 mg PO BID aripiprazole 5 mg tablet 5 mg PO DAILY aspirin [Adult Low Dose Aspirin] 81 mg tablet,delayed release (DR/EC) 81 mg PO DAILY clopidogrel 75 mg tablet 75 mg PO DAILY dapagliflozin propanediol 10 mg tablet 10 mg PO DAILY fluoxetine 20 mg capsule 20 mg PO DAILY fluticasone propionate [Allergy Relief (fluticasone)] 50 mcg/actuation spray,suspension 2 spray intranasal DAILY PRN (Reason: congestion) Rx Instructions: administer into each nostril Print Language: Kinyarwanda Instructions: Cellulitis (ED), Warm Compress or Soak (ED) Additional Instructions: Discontinue the Keflex and Bactrim you have been on. Use the Augmentin instead as directed twice daily for 10 days. Please soak your hand 2-3 times a day for 20 to 30 minutes in warm Epsom salt water. If the redness, swelling increase or worsen or you have red streaks up your arm or fever please return to the emergency department. Referrals: SHENG ORTEGA, FARM SPECIALIST [Primary Care Provider] - 1 week
[2025-03-03 23:20] LABS: Alanine Aminotransferase 30 U/L (16-63); Albumin Globulin Ratio 0.8; Albumin Level 3.8 g/dL (3.4-5.0); Alkaline Phosphatase 101 U/L (46-116); Anion Gap 13.1; Aspartate Amino Transferase 11 U/L (15-37); Blood Urea Nitrogen 40.0 mg/dL (7.0-18.0); Calcium 10.0 mg/dL (8.5-10.1); Carbon Dioxide 26.8 mmol/L (21.0-32.0); Chloride 105 mmol/L (98-107); Estimated GFR (African America 33 (>=60 mL/min/1.73m^2); Estimated GFR (Non-African Ame 27 (>=60 mL/min/1.73m^2); Globulin 4.5 g/dL; Glucose 104 mg/dL (74-106); Potassium 4.9 mmol/L (3.5-5.1); Sodium 140 mmol/L (136-145); Total Protein 8.3 g/dL (6.4-8.2)
[2025-03-03 23:25] LABS: Lactate/Lactic Acid 1.0 mmol/L (0.4-2.0)
[2025-03-03 23:53] VITALS: BP 146/87; PULSE 87; O2SAT 99
== END 2025-03-03 23:55 | disposition home or self-care (01) ==
PROVIDERS: Emergency Provider Emergency Medicine; PCP Nurse Practitioner Family
DX: L03.114 Cellulitis of left upper limb (principal); E11.9 Type 2 diabetes mellitus without complications; I10 Essential (primary) hypertension; E66.9 Obesity, unspecified; Z68.41 Body mass index [BMI] 40.0-44.9, adult; F17.200 Nicotine dependence, unspecified, uncomplicated
CPT/HCPCS: 36415; 80053; 83605; 85025; 85652; 86140; 87040; 96365; 99284; J0295